=== PATIENT | female | born 1945 | race Caucasian/White ===

== ENCOUNTER → 2018-11-09 | Outpatient (CLI) | payer MEDICARE, SELFPAY | END | disposition home or self-care (01) | LOC: SL 20:36 | PROVIDERS: Family Provider Family Medicine; PCP Family Medicine; Referring Provider Family Medicine; Visit Provider Family Medicine | DX: G47.33 Obstructive sleep apnea (adult) (pediatric) (principal) | CPT/HCPCS: 95810 ==

== ENCOUNTER → 2018-11-18 | Outpatient (CLI) | payer MEDICARE, SELFPAY ==
[2018-10-27 12:57] VITALS: BMI 41.3
--- NOTE | 2018-11-18 06:45 | ECHOCS_ITS ---
Reason For Study: CHEST PAIN, SOB Procedure This was a 2D Doppler, Color Flow transthoracic echocardiogram. The study was technically difficult. The study was technically limited. Exam performed in department. Left Ventricle Normal size and thickness. The estimated ejection fraction is 65 %. Diastolic function indeterminate but probably normal. No regional wall motion abnormalities noted. Right Ventricle Normal RV size. Normal systolic function. Atria Normal left atrium. Normal right atrium. No doppler evidence for ASD. Mitral Valve There is no mitral valve stenosis. No mitral valve insufficiency. Tricuspid Valve No significant tricuspid stenosis. Trivial tricuspid valve insufficiency. Pulmonary artery systolic pressure is 35-40 mmHg. Aortic Valve probably trileaflet. There is no aortic stenosis. No aortic valve insufficiency. Pulmonic Valve There is no pulmonic valvular stenosis. No pulmonic valve insufficiency. Great Vessels Normal aortic root. Pericardium/Pleural No pericardial effusion. Medication Diluted definity 4ml given slow IV push to enhance endocardial definition. MMode/2D Measurements & Calculations LVIDd: 3.9 cm IVSd: 0.80 cm Ao root diam: 3.1 cm LVIDs: 2.5 cm LVPWd: 1.00 cm FS: 34.7 % LAV(MOD-bp): 20.9 ml LVAd ap4: 24.3 cm2 SV(MOD-sp4): 36.3 ml LAV(MOD-bp) Indexed: 9.9 ml/m2 EDV(MOD-sp4): 65.1 ml LAV(MOD-sp2): 27.4 ml EDV(sp4-el): 67.8 ml LAV(MOD-sp4): 15.0 ml LVAs ap4: 14.6 cm2 ESV(MOD-sp4): 28.8 ml ESV(sp4-el): 29.7 ml EF(MOD-sp4): 55.8 % EF(sp4-el): 56.1 % SV(sp4-el): 38.0 ml LA A4 area: 8.8 cm2 LA dimension(2D): 2.8 cm RA A4 area: 8.9 cm2 Time Measurements MV dec time: 0.35 sec Doppler Measurements & Calculations MV E max john: 86.5 cm/sec Lat Peak E' John: 7.8 cm/sec Med Peak E' John: 9.2 cm/sec MV A max john: 104.3 cm/sec E/E' lat: 11.2 E/E' med: 9.4 MV E/A: 0.83 Ao V2 max: 130.0 cm/sec LV V1 max: 105.8 cm/sec PA V2 max: 103.1 cm/sec Ao max P.8 mmHg LV V1 max P.5 mmHg TR max john: 283.3 cm/sec TR max P.1 mmHg Interpretation Summary Diluted definity 4ml given slow IV push to enhance endocardial definition. The estimated ejection fraction is 65 %. Diastolic function indeterminate but probably normal. Pulmonary artery systolic pressure is 35-40 mmHg. The study was technically difficult. Ordering Physician: Kathi Quinones Referring Physician: JALYN SMITH Performed By: Geetha Gaston RDCS
--- NOTE | 2018-11-18 13:22 | STRESSREP ---
Stress Test Report Date: 1945 Procedure: Pharmacologic stress nuclear imaging study Indications: Chest pain Consent: Per the patient Procedure: The patient underwent pharmacologic (Regadenoson) evaluation with a peak heart rate of 98 beats per minute (65 %predicted maximal heart rate) and a peak blood pressure of 116/68 mmHg. The baseline ECG demonstrated normal sinus rhythm, nonspecific ST-T changes. EKG during lexiscan infusion revealed no significant change from baseline. EKG post infusion revealed no significant change from baseline. [There were no cardiac dysrhythmias pretest, during pharmacologic infusion, or recovery]. [There was no complaint of chest discomfort during pharmacologic infusion or recovery]. The examination was discontinued secondary to completion of protocol. Impression: 1. Lexiscan stress test test is negative for Lexiscan infusion induced EKG changes of ischemia. 2. Lexiscan stress test test negative for Lexiscan infusion induced chest pain. 3. Results of the nuclear portion of the test is as below Myocardial perfusion imaging study: Technique: The patient was injected with 11.3 millicuries of technetium 99m Cardiolite and subsequently rest SPECT Cardiolite nuclear imaging was obtained in the horizontal long, vertical long, and short axis views. The patient underwent pharmacologic (Regadenoson) evaluation. Please see above for details. The patient was injected with 34.1 millicuries of technetium 99m Cardiolite and subsequently stress SPECT Cardiolite nuclear imaging was obtained in the horizontal long, vertical long, and short axis views. A gated Cardiolite study at peak stress was obtained. Interpretation: Rest and stress SPECT Cardiolite nuclear imaging status post realignment, normalization, and attenuation correction demonstrate uniform myocardial radioisotope uptake overall. Gated images reveal no significant regional wall motion abnormalities. The reported LVEF is less than 70 %. Impression: 1. There is no evidence of significant ischemia or infarction. 2. Estimated ejection fraction is greater than 70%. This note was generated with [employer] software. It may contain incorrect words, spelling, and punctuation that were not noted in checking the note before signing.
== END | disposition home or self-care (01) ==
PROVIDERS: Family Provider Family Medicine; PCP Family Medicine; Referring Provider Specialist; Visit Provider Specialist
DX: R07.89 Other chest pain (principal); R06.02 Shortness of breath
CPT/HCPCS: 78452; 93017; 93306; A9500; Q9957; A4216; C8929; J2785

== ENCOUNTER 2018-12-22 16:34 | Emergency (ER) | payer MEDICARE, SELFPAY ==
[2018-11-24 13:01] VITALS: BMI 40.5
[2018-12-22] VITALS (10 sets, daily range): BP systolic 105–158; BP diastolic 68–103; PULSE 76–105; RESP 15–27; TEMP 36.4–36.6; O2SAT 91–95; BMI 39.4
--- NOTE | 2018-12-22 16:54 | EKG12_ITS ---
Test Reason : SOB Blood Pressure : / mmHG Vent. Rate : 095 BPM Atrial Rate : 095 BPM P-R Int : 140 ms QRS Dur : 090 ms QT Int : 372 ms P-R-T Axes : 068 021 062 degrees QTc Int : 467 ms Normal sinus rhythm Normal ECG Confirmed by FABIANO MISTRY, TAIWO ([id number]), visual effects editor JIMMY REID ([id number]) on 12/27/2018 12:15:09 PM Referred By: MAXX Confirmed By:TAIWO MARIO MD
--- NOTE | 2018-12-22 16:54 | CT_ITS ---
STUDY: CTA CHEST REASON FOR EXAM: Female, 73 years old. Rule out PE. RADIATION DOSAGE (If Supplied By Facility): CTDIvol = ( 13.66 ) mGy, DLP = ( 1118.34 ) mGycm TECHNIQUE: The examination was performed with the intravenous administration of 100 IV Isovue 370. Post-processing of the angiographic images was performed, with multiplanar reformation and 3D reconstruction. Individualized dose optimization techniques were used for this CT. COMPARISON: None. FINDINGS: The heart and pericardium are normal. There is no mediastinal mass. Calcified mediastinal and right hilar adenopathy is consistent with old granulomatous disease. There is no evidence of pulmonary embolus. Pulmonary arteries are unremarkable. Ascending aorta measures 3.3 cm in transverse dimension. Aortic arch measures 3.1 cm. The distal thoracic aorta measures 4.8 x 3.9 cm. Proximal abdominal aorta measures 4 cm in AP dimension. Aortic dissection begins in the mid to distal thoracic aorta and extends into the abdominal aorta. Celiac artery, SMA, and renal arteries arise from the true lumen. There is no pleural effusion. There is no pulmonary consolidation. There is mild centrilobular emphysema in the upper lobes bilaterally. Multiple calcified granulomas are noted in the right lower lobe. Calcifications in the spleen are consistent with old granulomatous disease. There is no osseous abnormality. CT/CTA Chest W/WO Contrast IMPRESSION: 1. 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 2. Mild COPD. 3. Old healed granulomatous disease. Electronically Signed: Judy Becker MD at 18:55 EDT Tel , Service support ,
--- NOTE | 2018-12-22 16:55 | ED.VISSUMM ---
- ER Visit Summary Date of Service: 12/22/18 Chief Complaint: Shortness of breath History of Present Illness: The patient is a 73 F here for ongoing shortness of breath. Patient has a history of COPD and is on home oxygen. She reports worsening shortness of breath over several months, worse today. She had an outpatient blood test which was abnormal and she was referred to the emergency department to rule out PE. Patient has no history of PE or DVT. No leg swelling, immobilization, recent surgery, or recent travel. She does not take blood thinners. Denies hemoptysis. She does report a cough with sputum but denies fevers or other associated symptoms. Physical Examination: Afebrile and vital signs unremarkable. Patient alert and oriented. No acute distress. Sitting, breathing, talking comfortably. She is wearing nasal cannula oxygen. Lungs diminished. Heart regular. Calves soft and supple. Test Results: EKG, labs, CTA pending. Emergency Department Course and Treatment: Patient will be monitored while awaiting results. Lab work was all fairly unremarkable. Troponin was normal. CT was performed. Preliminary read was pending, but it was clear that there was a descending aorta dissection. Additional imaging was performed. I added on coags and type and screen. Patient was treated with labetalol. Repeat systolic pressure was 105. It appeared that the dissection was a type B. 4.8 cm maximum thoracic diameter. Extended to the iliac bifurcation. It appeared that the other branches communicated with the true lumen. Patient was neurovascularly intact. No other symptoms or findings. Patient was discussed with Dr. Diamond at [facility] and will be transferred for further care. Treatment Plan: As above Disposition: Transfer Impression: 1. Type B aortic dissection This note was generated with [employer] dictation software. It may contain incorrect words, spelling, and punctuation that were not noted in review of the chart prior to signing ED Disposition - Plan for ED Patient: Referrals: Roderick Ryder MD [Primary Care Provider] -
[2018-12-22 17:26] LABS: Absolute Lymphocyte Count 0.92 X10^3/uL (0.83-4.51); Absolute Neutrophil Count 5.2 X10^3/uL (2.0-7.7); Basophil# 0.05 X10^3/uL; Basophil% 0.7 % (0-1); Eosinophil# 0.14 X10^3/uL; Eosinophils% 1.9 % (0-5); Hematocrit 41.8 % (37-47); Hemoglobin 13.4 g/dL (12.0-15.0); Lymphocyte # 0.92 X10^3/ul (4.0); Lymphocyte % 12.8 % (19-41); Mean Corp Hgb Conc 32.1 g/dL (32-36); Mean Corpuscular Hgb 30.7 pg (27.0-32.0); Mean Corpuscular Volume 95.9 fL (81-99); Mean Platelet Vol. 9.5 fl (6.2-12.0); Monocyte# 0.89 X10^3/uL; Monocyte% 12.3 % (0-10); NRBC Flagged by Analyzer 0 % (0-5); Neutrophil # 5.18 X10^3/uL (2.7-7.7); Neutrophil % 71.9 % (47-70); Platelet Count 246 K/mm3 (150-450); RBC Distribution Width SD 46.6 fl (35.1-43.9); Red Blood Count 4.36 M/mm3 (4.2-5.4); White Blood Count 7.2 K/mm3 (4.4-11.0)
[2018-12-22 17:38] LABS: Anion Gap 1 (5-15); BUN 28 mg/dL (7-18); BUN/Creat Ratio 32.8 RATIO (10-20); Calcium,Total 9.2 mg/dL (8.5-10.1); Chloride 101 mmol/L (98-107); Creatinine, Serum 0.85 mg/dL (0.55-1.02); EST Glomerular Filtration Rate 70 mL/min (>60); Est Glom Filt Rate - Afr Amer 84 mL/min (>60); Estimated Creatinine Clearance 52.42 ml/min; Glucose 223 mg/dL (74-106); Potassium 3.5 mmol/L (3.5-5.1); Sodium Level 138 mmol/L (136-145)
--- NOTE | 2018-12-22 17:59 | CT_ITS ---
We are attempting to reach an attending provider to discuss findings. An addendum with communication details will be sent when the communication is complete. STUDY: CT ABDOMEN AND PELVIS WITH CONTRAST REASON FOR EXAM: Female, 73 years old. Dissection? RADIATION DOSAGE (If Supplied By Facility): CTDIvol = ( 13.66 ) mGy, DLP = ( 1118.34 ) mGycm TECHNIQUE: Transaxial images were obtained from the dome of the diaphragm to the symphysis pubis without oral contrast. 100 IV Isovue 370 was administered. Sagittal and coronal images were reconstructed. Individualized dose optimization techniques were used for this CT. COMPARISON: None. FINDINGS: There is diffuse fatty infiltration of the liver. No focal lesion. The gallbladder is unremarkable. Splenic calcifications consistent with old granulomatous disease. The spleen is otherwise unremarkable. There are several small pancreatic calcifications consistent with chronic pancreatitis, or possibly old granulomatous disease. The adrenal glands are normal. Multiple renal cysts measure up to 2.3 cm. The kidneys are otherwise unremarkable. No stones or hydronephrosis. The abdominal aorta measures 4.5 x 3.7 cm at the diaphragmatic hiatus, 3.4 x 3.2 cm at the level of the renal arteries, and 3.6 x 3.2 cm distally. Aortic dissection extends from the thoracic aorta to the aortic bifurcation, with probable short segment extension into the proximal left common iliac artery. There is no free fluid, free air, or organized collection. No bowel obstruction or inflammatory change. Normal appendix. Urinary bladder is unremarkable. Normal abdominal wall. Mild degenerative changes of the lumbar spine. CT/Abdomen/Pelvis WITH Contrast IMPRESSION: 1. A 4.5 cm AAA, with dissection extending from the hiatus to the aortic bifurcation. 2. Probable short segment dissection of the proximal left common iliac artery. 3. Hepatic steatosis. 4. Old granulomatous disease. 5. Renal cysts. Electronically Signed: Judy Becker MD at 19:31 EDT Tel , Service support ,
[2018-12-22 18:25] LABS: Prothrombin Time (Protime)PT. 12.9 SECONDS (11.7-14.9)
[2018-12-22 18:26] LABS: Partial Thromboplast Time 28.1 Seconds (24.1-36.2)
== END 2018-12-22 22:24 | disposition short-term general hospital (02) ==
PROVIDERS: Emergency Provider Emergency Medicine; Family Provider Family Medicine; PCP Family Medicine
DX: I71.01 Dissection of thoracic aorta (principal); J44.9 Chronic obstructive pulmonary disease, unspecified; Z99.81 Dependence on supplemental oxygen; E11.9 Type 2 diabetes mellitus without complications; I10 Essential (primary) hypertension; M79.7 Fibromyalgia; Z79.84 Long term (current) use of oral hypoglycemic drugs; Z79.899 Other long term (current) drug therapy; Z87.891 Personal history of nicotine dependence
CPT/HCPCS: 71275; 74177; 80048; 84484; 85025; 85379; 85610; 85730; 86850; 86900; 93005; 96374; 96376; 99285; Q9967; A4216

== ENCOUNTER → 2018-12-22 | Outpatient (CLI) | payer MEDICARE, SELFPAY ==
[2018-11-24 13:01] VITALS: BMI 40.5
[2018-12-22 15:37] LABS: D-Dimer Quantitative (DVT/PE) 1.15 FEU/ug/m (0.27-0.49)
== END | disposition home or self-care (01) ==
LOC: LABSPEC 14:56
PROVIDERS: Family Provider Family Medicine; PCP Family Medicine; Referring Provider Family Medicine; Visit Provider Family Medicine
DX: R06.02 Shortness of breath (principal)
CPT/HCPCS: 85379

== ENCOUNTER 2021-07-24 20:43 | Observation (INO) | payer MEDICARE, SELFPAY ==
[2021-07-24 20:44] VITALS: BP 136/66; PULSE 64; RESP 20; TEMP 36.6; O2SAT 97; BMI 40.7
[2021-07-24 22:07] LABS: Absolute Lymphocyte Count 0.92 X10^3/uL (0.83-4.51); Absolute Neutrophil Count 6.5 X10^3/uL (2.0-7.7); Basophil# 0.05 X10^3/uL; Basophil% 0.6 % (0-1); Eosinophil# 0.08 X10^3/uL; Eosinophils% 0.9 % (0-5); Hematocrit 38.6 % (37-47); Hemoglobin 12.1 g/dL (12.0-15.0); Lymphocyte # 0.92 X10^3/ul (0.83-4.51); Lymphocyte % 10.6 % (19-41); Mean Corp Hgb Conc 31.3 g/dL (32-36); Mean Corpuscular Hgb 30.9 pg (27.0-32.0); Mean Corpuscular Volume 98.7 fL (81-99); Mean Platelet Vol. 9.6 fl (6.2-12.0); Monocyte# 1.07 X10^3/uL; Monocyte% 12.3 % (0-10); NRBC Flagged by Analyzer 0 % (0-5); Neutrophil # 6.54 X10^3/uL (2.7-7.7); Neutrophil % 75.3 % (47-70); Platelet Count 183 K/mm3 (150-450); RBC Distribution Width CV 12.8 % (11.6-14.6); RBC Distribution Width SD 46.2 fl (35.1-43.9); Red Blood Count 3.91 M/mm3 (4.2-5.4); White Blood Count 8.7 K/mm3 (4.4-11.0)
--- NOTE | 2021-07-24 22:09 | EKG12_ITS ---
Test Reason : WEAKNESS Blood Pressure : / mmHG Vent. Rate : 066 BPM Atrial Rate : 066 BPM P-R Int : 108 ms QRS Dur : 084 ms QT Int : 410 ms P-R-T Axes : 022 055 050 degrees QTc Int : 429 ms Sinus rhythm with short ND Otherwise normal ECG Confirmed by LUTHER MISTRY, LAMIN ([id number]), tape editor ALEIDA HARRIS ([id number]) on 07/25/2021 10:42:27 A M Referred By: JOVAN Confirmed By:ALLEN SLOAN MD
--- NOTE | 2021-07-24 22:11 | RAD_ITS ---
INDICATION: weakness EXAMINATION/TECHNIQUE: X-RAY - XR Chest 1 View COMPARISON: None. FINDINGS: LIFE-SUPPORT AND LINES: 1. None HEART AND VESSELS: Cardiac silhouette is upper limit of normal. No congestive failure LUNGS AND PLEURAL SPACES: Lungs are clear. No focal infiltrate, consolidation or effusions. No evidence of pneumothorax. No pulmonary mass is noted. MEDIASTINUM AND HILAR REGIONS: No masses adenopathy noted. No areas of calcification. Visualized upper airway is normal in position. BONY ELEMENTS: No acute bony changes noted. RAD/Chest 1 View (Portable) IMPRESSION: 1. Cardiac silhouette is at the upper limit of normal. 2. No evidence of acute cardiopulmonary process. Electronically Signed: Joe Cuevas MD at 22:40 EST ,
--- NOTE | 2021-07-24 22:12 | US_ITS ---
STUDY: VENOUS DOPPLER ULTRASOUND - BILATERAL LOWER EXTREMITIES REASON FOR EXAM: Female, 75 years old. BILAT SWELLING - BAD KNEES FOR YEARS TECHNIQUE: Ultrasound evaluation of the deep vein system to include mann-scale imaging and compression was performed. Mann-scale imaging and Doppler sonographic evaluation, including duplex spectral analysis and qualitative color flow sonography, was performed. COMPARISON: None. FINDINGS: RIGHT LEG Common Femoral Vein: Normal compression, spontaneity and augmentation. Normal color Doppler. Common Femoral Vein/Greater Saphenous Junction: Normal compression, spontaneity and augmentation. Normal color Doppler. Deep Femoral Vein: Normal compression, spontaneity and augmentation. Normal color Doppler. Femoral Proximal: Normal compression, spontaneity and augmentation. Normal color Doppler. Femoral Middle: Normal compression, spontaneity and augmentation. Normal color Doppler. Femoral Distal: Normal compression, spontaneity and augmentation. Normal color Doppler. Popliteal Vein: Normal compression, spontaneity and augmentation. Normal color Doppler. Posterior Tibial Vein: Normal compression, spontaneity and augmentation. Normal color Doppler. Peroneal Vein: Normal compression, spontaneity and augmentation. Normal color Doppler. LEFT LEG Common Femoral Vein: Normal compression, spontaneity and augmentation. Normal color Doppler. Common Femoral Vein/Greater Saphenous Junction: Normal compression, spontaneity and augmentation. Normal color Doppler. Deep Femoral Vein: Normal compression, spontaneity and augmentation. Normal color Doppler. Femoral Proximal: Normal compression, spontaneity and augmentation. Normal color Doppler. Femoral Middle: Normal compression, spontaneity and augmentation. Normal color Doppler. Femoral Distal: Normal compression, spontaneity and augmentation. Normal color Doppler. Popliteal Vein: Normal compression, spontaneity and augmentation. Normal color Doppler. Posterior Tibial Vein: Normal compression, spontaneity and augmentation. Normal color Doppler. Peroneal Vein: Normal compression, spontaneity and augmentation. Normal color Doppler. Bilateral posterior fossa MICHEL cyst formations, slightly complex on the left. US/Venous Duplex Imag/Flip Extrem IMPRESSION: Normal venous Doppler ultrasound of the bilateral lower extremities. Electronically Signed: Tyler Marin DO at 23:35 EST ,
[2021-07-24 22:29] LABS: Anion Gap 3 (5-15); BUN 27 mg/dL (7-18); BUN/Creat Ratio 34.1 RATIO (10-20); Calcium,Total 8.8 mg/dL (8.5-10.1); Chloride 99 mmol/L (98-107); Creatinine, Serum 0.79 mg/dL (0.55-1.02); EST Glomerular Filtration Rate 76 mL/min (>60); Est Glom Filt Rate - Afr Amer 91 mL/min (>60); Estimated Creatinine Clearance 41.45 ml/min; Glucose 116 mg/dL (74-106); Potassium 3.8 mmol/L (3.5-5.1); Sodium Level 139 mmol/L (136-145)
--- NOTE | 2021-07-24 22:33 | EDS_ITS ---
HPI History of Present Illness Chief Complaint: Weakness Narrative Narrative: Patient is a 75-year-old female who lives at home alone. Reportedly today after she woke up from sleeping she could not get himself to stand as she felt generalized weakness. She states she typically uses a walker and was eventually able to stand up but felt like if she went to walk she would fall. Her daughter came over and attempted to help her care for herself throughout the day but the patient's generalized weakness persisted. Daughter states that this evening she try to get her into the bathtub and the patient was too weak to do this and almost fell and therefore EMS was called to bring her in for evaluation. Patient states that there has been no fevers chills cough or increased shortness of breath. She states that she always feels short of breath as she has COPD and wears oxygen and that he is also had chronic leg swelling and she has noted some pain behind the bilateral knees with no reported injury. However at this time as she is too weak to ambulate she does not appear to be able to care for self at home and therefore was brought in by daughter for evaluation [facility] Medical History (Updated 07/25/21 @ 00:[address] Lavelle Ornelas, ) COPD (chronic obstructive pulmonary disease) Degenerative disc disease, lumbar Depression Edema of both lower extremities Essential hypertension Fibromyalgia GERD (gastroesophageal reflux disease) Morbid obesity with BMI of 40.0-44.9, adult Muscle spasm MICHEL (obstructive sleep apnea) Osteoarthritis RLS (restless legs syndrome) Type 2 diabetes mellitus without complication Home Medications albuterol sulfate 90 mcg/actuation aerosol inhaler 2 puff INHALATION Q4H PRN g 10/14/18 [History Last Taken Unknown] baclofen 10 mg tablet 10 mg PO TID 10/14/18 [History Last Taken Unknown] hydrochlorothiazide 12.5 mg capsule 12.5 mg PO DAILY 10/14/18 [History Last Taken Unknown] meloxicam 7.5 mg tablet 7.5 mg PO DAILY 10/14/18 [History Last Taken Unknown] metformin 500 mg tablet 500 mg PO DAILY tab 10/14/18 [History Last Taken Unknown] ranitidine HCl 150 mg tablet 150 mg PO BID 10/14/18 [History Last Taken Unknown] ropinirole 0.5 mg tablet 1.5 mg PO QHS tab 10/14/18 [History Last Taken Unknown] Oxygen #1 ea 10/27/18 [History Last Taken Unknown] budesonide 1 dose INHALATION BID 12/22/18 [History Last Taken Unknown] ipratropium-albuterol 1 dose INHALATION 4X/DAY 12/22/18 [History Last Taken Unknown] Allergy/AdvReac Type Severity Reaction Status Date / Time lisinopril AdvReac Intermediate cough Verified 07/24/21 20:50 Family History Mother Cancer lymphoma Father COPD (chronic obstructive pulmonary disease) Cancer bone Son Heart disease ischemic heart disease Surgical History History of appendectomy History of hysterectomy History of tonsillectomy Social History (Updated 11/24/18 @ 14:[address] Serenity Quinones MD) Smoking Status: Former smoker how long ago did patient quit smokin.5 years ago alcohol intake: current alcohol intake frequency: holidays/special occasions only substance use type: does not use caffeine: Yes Type: coffee Number of servings: 1 ROS ROS ED Constitutional Constitutional ED: Denies chills or fever(s) ENT ENT ED: Denies sore throat Cardiovascular Cardiovascular: Denies chest pain Respiratory/Chest Respiratory/Chest: Reports dyspnea; Denies cough Gastrointestinal Gastrointestinal: Denies abdominal pain, diarrhea, nausea or vomiting Genitourinary Genitourinary ED: Denies dysuria Musculoskeletal Musculoskeletal: Reports myalgias; Denies back pain or neck pain Integumentary Denies rash Neurologic Neurologic: Reports weakness; Denies headache(s) Hematologic/Lymphatic Hematologic/Lymphatic: Denies easy bleeding or easy bruising EXAM Physical Exam Const Vital Signs: 07/24/21 20:44 07/24/21 23:35 Temperature 97.9 F Temperature Source Temporal Pulse Rate 64 64 Respiratory Rate 20 H 19 H Blood Pressure 136/66 H 133/61 H Blood Pressure Mean 89 85 Pulse Ox 97 94 Oxygen Delivery Method Nasal Cannula Nasal Cannula Oxygen Flow Rate (L/min) 4 4 Positive well nourished, well developed and obese General Appearance ED: well developed Nutritional Appearance: obese HEENT Reports dry mucous membranes Mouth ED: Yes dry mucous membranes Mouth: dry mucous membranes Eyes PERRL and EOMs intact bilaterally Neck supple Resp normal respiratory effort Resp Narrative: Breath sounds are diminished throughout with diffuse expiratory wheeze consistent with history of COPD but no signs of distress Cardio regular rate and regular rhythm Rate: other Other Details: Radial pulses are +2-4 bilaterally are equal and symmetric GI normal to inspection, nondistended, normoactive bowel sounds, non-tender, non- distended and no masses GI Narrative: No voluntary guarding or rigidity no pulsatile mass Auscultation: normoactive bowel sounds Palpation: soft Extremity Extremity Narrative: Pelvis is stable there is no shortening or external rotation of either lower extremity. Patient has +2-3 pitting edema to the bilateral lower extremities that is equal and symmetric. There are chronic stasis changes to the bilateral legs as well without secondary changes to suggest infection. Neuro oriented x3 and CN's II-XII intact bilaterally Neuro Narrative: No truncal ataxia or dysmetria NIH stroke scale score of 0 Sensorium / Orientation: alert Psych mental status grossly normal Skin Skin Narrative: Chronic stasis changes to the bilateral lower legs as documented above MDM MDM MDM Narrative Medical decision making narrative: Patient was the ER afebrile and satting in the mid 90s on her normal home oxygen. She reported generalized weakness and there was no focal deficit on exam. Patient cannot ambulate based on her strength in the ER as well as report by daughter and the fact that she lives at home alone means is that she is unsafe for return to home. A basic work-up was obtained to check for cause of the generalized weakness and it shows no signs of hyponatremia or acute kidney injury or signs of cardiac damage. X-ray does not show any signs of pneumonia. Her urine is weakly infected with +1 bacteria without contamination or white blood cells. Therefore the urine will be sent for culture and she will be started on Rocephin. However at this time the patient can still not ambulate and is still not safe for discharge therefore she will need to be placed in a penitentiary or rehab center. Patient states she is agreeable to this and therefore be admitted to the hospital at this time. Lab Data Attestation: I reviewed the patient's lab results. Labs: Laboratory Results - last 24 hr 07/24/21 07/24/21 07/24/21 22:00 22:00 22:00 WBC 8.7 RBC 3.91 L Hgb 12.1 Hct 38.6 MCV 98.7 MCH 30.9 MCHC 31.3 L RDW Std Deviation 46.2 H RDW Coeff of Stephenie 12.8 Plt Count 183 MPV 9.6 Immature Gran % (Auto) 0.300 Neut % (Auto) 75.3 H Lymph % (Auto) 10.6 L [place] % (Auto) 12.3 H Eos % (Auto) 0.9 Baso % (Auto) 0.6 Absolute Neuts (auto) 6.5 Absolute Lymphs (auto) 0.92 Nucleated RBC % 0 Sodium 139 Potassium 3.8 Chloride 99 Carbon Dioxide 37.0 H Anion Gap 3 L BUN 27 H Creatinine 0.79 Estim Creat Clear Calc 41.45 Est GFR (MDRD) Af Amer 91 Est GFR (MDRD) Non-Af 76 BUN/Creatinine Ratio 34.1 H Glucose 116 H Calcium 8.8 Magnesium Troponin I High Sens B-Natriuretic Peptide 82.2 Urine Color Urine Clarity Urine pH Ur Specific [place] Urine Protein Urine Glucose (UA) Urine Ketones Urine Occult Blood Urine Nitrite Urine Bilirubin Urine Urobilinogen Ur Leukocyte Esterase Urine RBC Urine WBC Ur Squamous Epith Cells Urine Bacteria Hyaline Casts Urine Mucus 07/24/21 07/24/21 22:00 23:35 WBC RBC Hgb Hct MCV MCH MCHC RDW Std Deviation RDW Coeff of Stephenie Plt Count MPV Immature Gran % (Auto) Neut % (Auto) Lymph % (Auto) [place] % (Auto) Eos % (Auto) Baso % (Auto) Absolute Neuts (auto) Absolute Lymphs (auto) Nucleated RBC % Sodium Potassium Chloride Carbon Dioxide Anion Gap BUN Creatinine Estim Creat Clear Calc Est GFR (MDRD) Af Amer Est GFR (MDRD) Non-Af BUN/Creatinine Ratio Glucose Calcium Magnesium 1.7 Troponin I High Sens 17 B-Natriuretic Peptide Urine Color Yellow Urine Clarity Clear Urine pH 6.5 Ur Specific [place] 1.010 Urine Protein 30 H Urine Glucose (UA) Normal Urine Ketones Negative Urine Occult Blood 10 H Urine Nitrite Negative Urine Bilirubin Negative Urine Urobilinogen Normal Ur Leukocyte Esterase Negative Urine RBC 0-5 SEEN Urine WBC 0 SEEN Ur Squamous Epith Cells 0-5 SEEN Urine Bacteria 1+ Hyaline Casts 0-5 SEEN Urine Mucus 0 SEEN Radiography Diagnostic Testing: Clinical Impression(s) from Imaging Studies Chest X-Ray 07/24/21 22:11 IMPRESSION: 1. Cardiac silhouette is at the upper limit of normal. 2. No evidence of acute cardiopulmonary process. Electronically Signed: Joe Cuevas MD at 22:40 EST , Venous Duplex 07/24/21 22:12 IMPRESSION: Normal venous Doppler ultrasound of the bilateral lower extremities. Electronically Signed: Tyler Marin at 23:35 EST , Discharge Plan Triage Chief Complaint: Weakness ED Provider: Lavelle Ornelas Dx/Rx/DC Orders Clinical Impression: Generalized muscle weakness, Urinary tract infection Prescriptions: No Action (DME) Oxygen 3 liters NC Qty: 1 RF: 0 ranitidine HCl [Acid Preventive Maintenance Engineer (ranitidine)] 150 mg tablet 150 mg PO BID RF: 0 meloxicam 7.5 mg tablet 7.5 mg PO DAILY RF: 0 metformin 500 mg tablet 500 mg PO DAILY RF: 0 hydrochlorothiazide 12.5 mg capsule 12.5 mg PO DAILY RF: 0 baclofen 10 mg tablet 10 mg PO TID RF: 0 albuterol sulfate 90 mcg/actuation HFA aerosol inhaler 2 puff INHALATION Q4H PRN (Reason: Sob &/Or Wheezing) RF: 0 ropinirole 0.5 mg tablet 1.5 mg PO QHS RF: 0 ipratropium-albuterol 0.5-3MG/3 solution for nebulization 1 dose inhalation 4X/DAY RF: 0 budesonide 0.5 MG/2ML suspension for nebulization 1 dose inhalation BID RF: 0 Primary Care Provider: Roderick Ryder Referrals: Roderick Ryder MD [Primary Care Provider] - Disposition Disposition: [facility]
[2021-07-24 22:44] LABS: Magnesium 1.7 mg/dL (1.6-2.6); Troponin-I HS 17 pg/mL (3.0-54.0)
[2021-07-24 22:50] LABS: BNP,B-Type NATRIURETIC PEPTIDE 82.2 pg/mL (0-100)
[2021-07-24 23:35] VITALS: BP 133/61; PULSE 64; RESP 19; O2SAT 94
[2021-07-24 23:41] LABS: Mucous, Urine 0 SEEN /hpf (<or=2+); White Blood Cells 0 SEEN /hpf (0-5)
[2021-07-24 23:46] LABS: Color, Urine Yellow (Yellow); Glucose, Dipstick Normal (Normal); Ketone-Dipstick Negative (Negative); Leukocyte Esterase-Dipstick Negative /ul (Negative); Nitrite-Dipstick Negative (Negative); Occult Blood-Urine 10 /ul (Negative); Protein-Dipstick 30 mg/dl (Negative); Urine Bilirubin Dipstick Negative (Negative); Urine Clarity Clear (Clear); Urine Urobilinogen Normal (Normal); Urine pH 6.5 (5.0 - 8.0)
[2021-07-24] MEDS: Orphenadrine 60 MG/2 ML Ampul IV (23:46)
[2021-07-25] VITALS (14 sets, daily range): BP systolic 99–145; BP diastolic 60–96; PULSE 66–91; RESP 15–20; TEMP 36.6–36.9; O2SAT 92–100; BMI 39.8
[2021-07-25 00:03] LABS: Bacteria 1+ /hpf (None Seen); Hyaline Cast 0-5 SEEN /lpf (0-5); Red Blood Cells-Urine 0-5 SEEN /hpf (0-5); Squamous Epithelial Cells - UA 0-5 SEEN /hpf (5-10)
[2021-07-25] MEDS: LORazepam 2 MG/ML Syringe 0.5 MG IV (00:04)
--- NOTE | 2021-07-25 00:23 | RAD_ITS ---
STUDY: X-RAY - RIGHT KNEE REASON FOR EXAM: Female, 75 years old. pain TECHNIQUE: 3 view(s) of the knee. COMPARISON: None. FINDINGS: Normal visualized distal femur. Normal visualized proximal tibia and fibula. Normal proximal tibiofibular articulation. There is mild degenerative arthrosis of the medial femorotibial compartment. There is severe degenerative arthrosis of the lateral femorotibial compartment with severe joint space narrowing. There is severe degenerative arthrosis of the patellofemoral articulation. There is a small joint effusion. The soft tissue structures are unremarkable. RAD/Knee 3 Views IMPRESSION: Degenerative arthrosis. Electronically Signed: Malcom Rubio MD at 1:40 EST ,
--- NOTE | 2021-07-25 00:35 | PCM.HP.STD ---
[facility] - General General Date of Admission: 07/25/21 Date of Service: 07/25/21 Chief Complaint: Generalised weakness, right knee pain, inability to walk/bear weight - 1 day HPI Narrative ENZO VAZQUEZ, is a 75 F who presents with the above ongoing for 1 day. She has multiple comorbidities significant for chronic respiratory failure secondary to COPD, on 4 L home oxygen, morbid obesity, pulmonary hypertension, MICHEL, restless leg syndrome. She lives alone and woke up this morning with inability to move. Her daughter helped the for the most part of the day to walk with her walker. She was helped into the shower and was unable to move because of severe right knee pain and spasms. Patient denied any falls, recent illness, fever or chills. Her daughter called 911 because she is unable to take care of her mom who lives alone but both herself and her sister check in on her frequently. Vitals in the ED were stable with blood pressure 133/61, heart rate 64, SPO2 94% on 4 L of oxygen. Admitting blood work including CBCD, CMP were unremarkable. Mag is 1.7. Admitting chest x-ray was negative for any acute cardiopulmonary process. Bilateral duplex ultrasound was negative for acute DVT. X-ray of the knees showed severe osteoarthritis. [facility] Medical History COPD (chronic obstructive pulmonary disease) Degenerative disc disease, lumbar Depression Edema of both lower extremities Essential hypertension Fibromyalgia GERD (gastroesophageal reflux disease) Morbid obesity with BMI of 40.0-44.9, adult Muscle spasm MICHEL (obstructive sleep apnea) Osteoarthritis RLS (restless legs syndrome) Type 2 diabetes mellitus without complication Home Medications albuterol sulfate 90 mcg/actuation aerosol inhaler 2 puff INHALATION Q4H PRN g 10/14/18 [History Last Taken Unknown] baclofen 10 mg tablet 10 mg PO TID 10/14/18 [History Last Taken Unknown] hydrochlorothiazide 12.5 mg capsule 12.5 mg PO DAILY 10/14/18 [History Last Taken Unknown] meloxicam 7.5 mg tablet 7.5 mg PO DAILY 10/14/18 [History Last Taken Unknown] metformin 500 mg tablet 500 mg PO DAILY tab 10/14/18 [History Last Taken Unknown] ranitidine HCl 150 mg tablet 150 mg PO BID 10/14/18 [History Last Taken Unknown] ropinirole 0.5 mg tablet 1.5 mg PO QHS tab 10/14/18 [History Last Taken Unknown] Oxygen #1 ea 10/27/18 [History Last Taken Unknown] budesonide 1 dose INHALATION BID 12/22/18 [History Last Taken Unknown] ipratropium-albuterol 1 dose INHALATION 4X/DAY 12/22/18 [History Last Taken Unknown] metoprolol tartrate 50 mg PO BID 07/25/21 [History Last Taken Unknown] oxybutynin chloride 5 mg PO DAILY 07/25/21 [History Last Taken Unknown] sertraline 50 mg PO DAILY 07/25/21 [History Last Taken Unknown] Allergy/AdvReac Type Severity Reaction Status Date / Time lisinopril AdvReac Intermediate cough Verified 07/24/21 20:50 Family History Mother Cancer lymphoma Father COPD (chronic obstructive pulmonary disease) Cancer bone Son Heart disease ischemic heart disease Surgical History History of appendectomy History of hysterectomy History of tonsillectomy Social History Smoking Status: Former smoker how long ago did patient quit smokin.5 years ago alcohol intake: current alcohol intake frequency: holidays/special occasions only substance use type: does not use caffeine: Yes Type: coffee Number of servings: 1 ROS ROS Narrative Constitutional: Reports: Generalized weakness, Fatigue. Denies: Anorexia, Chills, Fever, Night Sweats, Weight Change Eyes: Denies: Blurred vision, Cataracts, Conjunctivae Inflammation, Pain, Redness, Vision Change HEENT: Denies: Difficulty Hearing, Difficulty Swallowing, Head Aches, Hearing Changes, Sinus Congestion, Sinus Drainage Cardiovascular: Denies: Chest Pain, Orthopnea, Palpitations Respiratory: Denies: Cough, Shortness of breath at rest, Sputum production Gastrointestinal: Denies: Abdominal Pain, Nausea, Vomiting Genitourinary: Denies: Dysuria Musculoskeletal: See HPI Skin: Denies: Rash, Wounds Neurological: Denies: Numbness, Tingling, Focal weakness Vital Signs Vital Signs Vital Signs: 07/24/21 20:44 07/24/21 23:35 Temperature 97.9 F Temperature Source Temporal Pulse Rate 64 64 Respiratory Rate 20 H 19 H Blood Pressure 136/66 H 133/61 H Blood Pressure Mean 89 85 Pulse Ox 97 94 Oxygen Delivery Method Nasal Cannula Nasal Cannula Oxygen Flow Rate (L/min) 4 4 Weight Weight: 104.326 kg Body Mass Index (BMI) 40.7 Physical Exam Narrative Physical exam: General: Alert, Oriented x3, Cooperative, in severe pain, obese, on 4 L of oxygen HEENT: Atraumatic Oral: Moist Mucosa Neck: Supple Lungs: Diminished to auscultation Cardiovascular: HS I+II, regular, no murmurs Abdomen: Bowel Sounds Present, Soft, Non Tender Extremities: Bilateral leg edema +2-3 with chronic venous stasis skin changes Results Lab / Micro Data Result Diagrams: 07/24/21 22:00 07/24/21 22:00 Labs: Laboratory Results - last 24 hr 07/24/21 22:00: WBC 8.7, RBC 3.91 L, Hgb 12.1, Hct 38.6, MCV 98.7, MCH 30.9, MCHC 31.3 L, RDW Std Deviation 46.2 H, RDW Coeff of Setphenie 12.8, Plt Count 183, MPV 9.6, Immature Gran % (Auto) 0.300, Neut % (Auto) 75.3 H, Lymph % (Auto) 10.6 L, [place] % (Auto) 12.3 H, Eos % (Auto) 0.9, Baso % (Auto) 0.6, Absolute Neuts (auto) 6.5, Absolute Lymphs (auto) 0.92, Nucleated RBC % 0 07/24/21 22:00: Sodium 139, Potassium 3.8, Chloride 99, Carbon Dioxide 37.0 H, Anion Gap 3 L, BUN 27 H, Creatinine 0.79, Estim Creat Clear Calc 41.45, Est GFR (MDRD) Af Amer 91, Est GFR (MDRD) Non-Af 76, BUN/Creatinine Ratio 34.1 H, Glucose 116 H, Calcium 8.8 07/24/21 22:00: B-Natriuretic Peptide 82.2 07/24/21 22:00: Magnesium 1.7, Troponin I High Sens 17 07/24/21 23:35: Urine Color Yellow, Urine Clarity Clear, Urine pH 6.5, Ur Specific [place] 1.010, Urine Protein 30 H, Urine Glucose (UA) Normal, Urine Ketones Negative, Urine Occult Blood 10 H, Urine Nitrite Negative, Urine Bilirubin Negative, Urine Urobilinogen Normal, Ur Leukocyte Esterase Negative, Urine RBC 0-5 SEEN, Urine WBC 0 SEEN, Ur Squamous Epith Cells 0-5 SEEN, Urine Bacteria 1+, Hyaline Casts 0-5 SEEN, Urine Mucus 0 SEEN Radiology Impression Chest X-Ray 07/24/21 22:11 IMPRESSION: 1. Cardiac silhouette is at the upper limit of normal. 2. No evidence of acute cardiopulmonary process. Electronically Signed: Joe Cuevas MD at 22:40 EST , Venous Duplex 07/24/21 22:12 IMPRESSION: Normal venous Doppler ultrasound of the bilateral lower extremities. Electronically Signed: Tyler Marin DO at 23:35 EST , Assessment & Plan Assessment/Plan (1) Debility: (2) Right knee pain: QUALIFIERS: Chronicity: acute Qualified Code(s): M25.561 - Pain in right knee PLAN: 1. Debility secondary to acute on chronic right knee pain/severe osteoarthritis Patient lives alone and is unable to bear weight X-ray of the right knee, pain control with scheduled Tylenol, prn oxycodone, orthopedics consult for possible knee injection PT/OT to evaluate and treat Patient and family are okay for patient to call for rehab Hold meloxicam -contributing to fluid retention Check phosphorus level 2. Acute exacerbation of heart failure with preserved EF, EF of 65% 2D echo done in 2019 showed RVSP of 35-40, diastolic function indeterminate Patient is on hydrochlorothiazide at home; hold Start patient on Lasix 40 mg IV twice daily, I & Os, CHF protocol 3. Type 2 DM, on Metformin, will hold Metformin Start on insulin sliding scale with blood glucose checks 4. Hypomagnesemia, magnesium is 1.7, replaced, recheck in a.m. 5. Chronic respiratory failure secondary to COPD, not in acute exacerbation; patient is on her home 4 L of oxygen Continue breathing treatments as needed, encourage use of incentive spirometer 6. Morbid obesity, BMI 40.7, lifestyle modification recommended 7. DVT prophylaxis?heparin SC 8. CODE STATUS?DNR CCA, no intubation I discussed and explained in details the various types of CODE STATUS-full code, DNR CCA, DNR CC. Patient chose to be a DNR CCA, no intubation. She does not want cardiopulmonary resuscitation in the event of cardiopulmonary arrest. Time spent discussing CODE STATUS 16 minutes Charges/Coding Visit Charges Inpatient E&M: 34849 Init Hosp L3 Procedures Hospitalists Procedures: 81043 Advncd Care Plan 30 Min
[2021-07-25] MEDS: Ondansetron 4 MG/2 ML Vial IV (00:36)
[2021-07-25] MEDS: fentaNYL 100 MCG/2 ML Ampul 50 MCG IV (00:42)
[2021-07-25] MEDS: Ceftriaxone 1 GM/50 ML BAG IV (00:43)
[2021-07-25] MEDS: Heparin Injection (Vial) 5,000 UNIT/ML VIAL 5000 UNIT SC ×2 (05:27→12:45)
[2021-07-25] MEDS: Acetaminophen 325 MG Tablet 650 MG PO ×2 (05:27→12:45)
[2021-07-25 05:31] LABS: Absolute Lymphocyte Count 0.88 X10^3/uL (0.83-4.51); Absolute Neutrophil Count 6.1 X10^3/uL (2.0-7.7); Basophil# 0.03 X10^3/uL; Basophil% 0.4 % (0-1); Eosinophil# 0.06 X10^3/uL; Eosinophils% 0.7 % (0-5); Hematocrit 37.3 % (37-47); Hemoglobin 11.6 g/dL (12.0-15.0); Lymphocyte # 0.88 X10^3/ul (0.83-4.51); Lymphocyte % 10.5 % (19-41); Mean Corp Hgb Conc 31.1 g/dL (32-36); Mean Corpuscular Hgb 31.2 pg (27.0-32.0); Mean Corpuscular Volume 100.3 fL (81-99); Mean Platelet Vol. 9.9 fl (6.2-12.0); Monocyte# 1.22 X10^3/uL; Monocyte% 14.6 % (0-10); NRBC Flagged by Analyzer 0 % (0-5); Neutrophil # 6.14 X10^3/uL (2.7-7.7); Neutrophil % 73.3 % (47-70); Platelet Count 193 K/mm3 (150-450); RBC Distribution Width CV 12.8 % (11.6-14.6); Red Blood Count 3.72 M/mm3 (4.2-5.4); White Blood Count 8.4 K/mm3 (4.4-11.0)
[2021-07-25 06:00] LABS: AST(SGOT) 22 U/L (15-37); Alanine Aminotransfer ALT/SGPT 22 U/L (13-56); Albumin, Serum 3.5 g/dL (3.2-5.0); Alkaline Phosphatase 84 U/L (45-117); Anion Gap 1 (5-15); BUN 20 mg/dL (7-18); BUN/Creat Ratio 31.3 RATIO (10-20); Calcium,Total 8.7 mg/dL (8.5-10.1); Chloride 98 mmol/L (98-107); Creatinine, Serum 0.64 mg/dL (0.55-1.02); EST Glomerular Filtration Rate 97 mL/min (>60); Est Glom Filt Rate - Afr Amer 117 mL/min (>60); Estimated Creatinine Clearance 41.45 ml/min; Globulin 3.5 g/dL (2.2-4.2); Glucose 126 mg/dL (74-106); Magnesium 2.2 mg/dL (1.6-2.6); Phosphorus 3.2 mg/dL (2.5-4.9); Potassium 3.8 mmol/L (3.5-5.1); Sodium Level 138 mmol/L (136-145)
[2021-07-25 06:46] LABS: Bedside Glucose 131 mg/dL (70-110)
[2021-07-25 06:46] LABS: Bedside Glucose 124 mg/dL (70-110)
[2021-07-25] MEDS: 0.9% Saline Lock 10 ML Syringe IV ×2 (08:08→18:01)
[2021-07-25] MEDS: Furosemide 40 MG/4 ML Vial IV ×2 (08:08→18:01)
[2021-07-25] MEDS: Sertraline 50 MG Tablet PO (10:19)
[2021-07-25] MEDS: Famotidine 20 MG Tablet PO (10:19)
[2021-07-25] MEDS: hydroCHLOROthiazide 12.5mg 12.5 MG PO (10:20)
[2021-07-25] MEDS: Metoprolol Tartrate 50 MG Tablet PO (10:20)
[2021-07-25] MEDS: Meloxicam 7.5 MG Tablet PO (10:20)
[2021-07-25] MEDS: Oxybutynin 5 MG Tablet PO (10:22)
--- NOTE | 2021-07-25 10:28 | CASEMGMT ---
Reviewed chart and patient will need placement. SW went to patient's room to meet patient. Patient was lying in bed and almost had her food tray pulled over on top of her. SW quickly assisted patient and removed her food tray, moved the tray table beside her bed, and wiped it off. SW then asked patient about which facility. Patient would like to go to [facility]. Patient was sleepy so SW asked if SW could call her daughter to discuss this. Patient gave permission. SW called patient's daughter and she said she is on her way to [facility]. SW then spoke with patient's daughter when she arrived at [facility]. SW provided a list of SNF providers including quality and resource use data and consistent with the patient?s preferred geographic region, medical needs, and insurance network. Patient's daughter would like [facility]. SW let her now they should have a bed for patient. SW let her know insurance coverage generally speaking as SW did not call and find out exact benefits. SW let her know patient will be able to have more visitors and she will be able to wear regular clothes while in TCU. JARVIS also told her SW will call when patient is being transferred. [facility]
[2021-07-25] MEDS: Ipratropium/Albuterol Sulfate 3 ML AMPUL.NEB INHALATION ×3 (10:33→18:36)
[2021-07-25] MEDS: Budesonide Respules 0.5 MG/2 ML AMPUL.NEB. INHALATION ×2 (10:34→18:49)
[2021-07-25 12:51] LABS: Bedside Glucose 112 mg/dL (70-110)
--- NOTE | 2021-07-25 13:11 | PCM.DC.SUM ---
Providers Date of Admission: 07/25/21 Date of Discharge: 07/25/21 Primary Care Physician: Dr. Roderick Ryder MD Consultations 07/25/21 01:07 Consult: Orthopedics Routine Consulting Provider: Burke Velez Reason for Consult: Severe right knee pain EMERGENT Consult: No MD Notified: Yes Date Notified: 07/25/21 Time Notified: 07:30 Method of Notification: Text Reason For Visit: debility Diagnosis Discharge Diagnosis (1) Debility: Status: Acute Code(s): R53.81 - Other malaise (2) Right knee pain: Status: Acute Code(s): M25.561 - Pain in right knee Qualifiers: Chronicity: acute Qualified Code(s): M25.561 - Pain in right knee Medications at Discharge Home Medications albuterol sulfate 90 mcg/actuation aerosol inhaler 2 puff INHALATION Q4H PRN g 10/14/18 baclofen 10 mg tablet 10 mg PO TID 10/14/18 meloxicam 7.5 mg tablet 7.5 mg PO DAILY 10/14/18 metformin 500 mg tablet 500 mg PO DAILY tab 10/14/18 ropinirole 0.5 mg tablet 1.5 mg PO QHS tab 10/14/18 Oxygen #1 ea 10/27/18 budesonide 1 dose INHALATION BID 12/22/18 ipratropium-albuterol 1 dose INHALATION 4X/DAY 12/22/18 hydrochlorothiazide 25 mg PO DAILY 07/25/21 metoprolol tartrate 50 mg PO DAILY 07/25/21 oxybutynin chloride 5 mg PO DAILY 07/25/21 sertraline 50 mg PO DAILY 07/25/21 Hospital Course Operations None Procedures None Summary of Care Provided Minutes Spent on Discharge: 39 Hospital Course: Mrs. Correia is a 75-year-old white female who presented to the emergency department late last evening with generalized weakness and decreased mobility. The patient indicated she typically uses a walker at baseline and is on 4 L of oxygen. She states she went to stand up but felt as if she would fall and her leg would give out on her. She has fairly severe osteoarthritis of the knees and feels this is contributing. The daughter presented with her and reported that the evening of admission she tried to get her into the bathtub and the patient was too weak to do this and and was felt. The patient complained of no fevers or chills, cough, shortness of breath other than her baseline for which she wears oxygen at 4 L secondary to COPD. She reports that she has chronic leg swelling and does report she has pain most specifically behind both knees. She has no known injury. The daughter was concerned because she is unable to care for herself at home and thought that placement may be appropriate and was agreeable to this in the emergency department. Her vital signs were stable and her laboratory data was overall unremarkable. There is initially concern of a urinary tract infection however UA is not suggestive of infection as it is leuk esterase and nitrite negative with no white blood cells and will only 1+ bacteria. The patient is asymptomatic with regards to urinary symptoms as well. Urine culture was sent by the emergency department on admission but she was not placed on any antibiotics at the time of admission. During her hospitalization she was seen by occupational and physical therapy and deemed appropriate for further therapy needs. X-rays of her knees were performed given her knee pain and these revealed mild degenerative arthrosis in the medial femorotibial compartment and severe degenerative arthrosis in the lateral femorotibial compartment with severe joint space narrowing as well as severe degenerative arthrosis of the patellofemoral articulation. She had a small joint effusion. On physical exam there was no warmth or erythema at the joint. She was able to be discharged to TCU for continued therapy on 07/25/2021. We do recommend she follow-up with orthopedic surgery for her knee osteoarthritis. I suspect she is overall a poor surgical candidate however nonsurgical interventions including injections may be helpful. She is to follow-up with her primary care physician in 2 weeks after discharge from TCU. Discharge diagnoses: Debility Knee pain secondary to osteoarthritis Bacteriuria Acute exacerbation of diastolic heart failure-resolved COPD with oxygen dependence of 4 L DM-2 Hypomagnesemia-resolved Chronic hypoxic respiratory failure MICHEL-noncompliance at baseline Hypertension Restless leg syndrome Urinary incontinence Morbid obesity Physical Exam Const alert, oriented x3 and no apparent distress Constitutional Narrative: Older white female lying in bed, slightly sleepy but appropriate and alert and oriented x3, empty breakfast tray in front of patient General Appearance: cooperative, comfortable, well kempt and well developed Orientation / Consciousness: awake Exam Limitations: no limitations Nutritional Appearance: obese HEENT normocephalic, head/scalp atraumatic, moist oral mucous membranes and oropharynx normal HEENT Narrative: Mallampati three, dentures in place, no thrush Eyes PERRL, EOMs intact bilaterally and conjunctivae normal Eyes Narrative: No scleral icterus Neck no lymphadenopathy, supple and no JVD Neck Narrative: Neck is short and thick, trachea is midline, no signs of thyroid enlargement on exam Resp normal respiratory effort, no retractions, no use of accessory muscles and clear to auscultation bilaterally Resp Narrative: Diminished but clear Auscultation: Negative for crackles, rales, rhonchi or wheezes Cardio regular rate, regular rhythm, S1 normal heart sound, S2 normal heart sound, no murmurs, no rub, no gallops, no clicks and no JVD GI normal to inspection, nondistended, normoactive bowel sounds, soft to palpation, non-tender and non-distended Extremity Extremity Narrative: Arthritic changes in bilateral knees, no clubbing or cyanosis, trace bilateral lower extremity edema which appears to be chronic Skin no rashes or lesions noted, no wounds, skin turgor normal and no jaundice Neuro oriented x3, CN's II-XII intact bilaterally, moves all extremities and no focal motor deficits Neuro Narrative: Patient is slightly groggy but alert and oriented follows commands without any issue and is able to participate in her history with me Sensorium / Orientation: awake and alert Speech: speech normal Psych affect normal Weight / BMI Weight Weight: 102.058 kg Body Mass Index (BMI) 39.8 ABG / Lab / Microbiology Data Result Diagrams: 07/25/21 04:36 07/25/21 04:36 Laboratory: Laboratory Results - last 24 hr 07/24/21 22:00: WBC 8.7, RBC 3.91 L, Hgb 12.1, Hct 38.6, MCV 98.7, MCH 30.9, MCHC 31.3 L, RDW Std Deviation 46.2 H, RDW Coeff of Stephenie 12.8, Plt Count 183, MPV 9.6, Immature Gran % (Auto) 0.300, Neut % (Auto) 75.3 H, Lymph % (Auto) 10.6 L, Pettis % (Auto) 12.3 H, Eos % (Auto) 0.9, Baso % (Auto) 0.6, Absolute Neuts (auto) 6.5, Absolute Lymphs (auto) 0.92, Nucleated RBC % 0 02/16/22 22:00: Sodium 139, Potassium 3.8, Chloride 99, Carbon Dioxide 37.0 H, Anion Gap 3 L, BUN 27 H, Creatinine 0.79, Estim Creat Clear Calc 41.45, Est GFR (MDRD) Af Amer 91, Est GFR (MDRD) Non-Af 76, BUN/Creatinine Ratio 34.1 H, Glucose 116 H, Calcium 8.8 07/24/21 22:00: B-Natriuretic Peptide 82.2 07/24/21 22:00: Magnesium 1.7, Troponin I High Sens 17 07/24/21 23:35: Urine Color Yellow, Urine Clarity Clear, Urine pH 6.5, Ur Specific Dexter 1.010, Urine Protein 30 H, Urine Glucose (UA) Normal, Urine Ketones Negative, Urine Occult Blood 10 H, Urine Nitrite Negative, Urine Bilirubin Negative, Urine Urobilinogen Normal, Ur Leukocyte Esterase Negative, Urine RBC 0-5 SEEN, Urine WBC 0 SEEN, Ur Squamous Epith Cells 0-5 SEEN, Urine Bacteria 1+, Hyaline Casts 0-5 SEEN, Urine Mucus 0 SEEN 07/25/21 02:19: POC Glucose 124 H 07/25/21 04:36: WBC 8.4, RBC 3.72 L, Hgb 11.6 L, Hct 37.3, MCV 100.3 H, MCH 31.2, MCHC 31.1 L, RDW Std Deviation 47.0 H, RDW Coeff of Stephenie 12.8, Plt Count 193, MPV 9.9, Immature Gran % (Auto) 0.500, Neut % (Auto) 73.3 H, Lymph % (Auto) 10.5 L, Pettis % (Auto) 14.6 H, Eos % (Auto) 0.7, Baso % (Auto) 0.4, Absolute Neuts (auto) 6.1, Absolute Lymphs (auto) 0.88, Nucleated RBC % 0 07/25/21 04:36: Sodium 138, Potassium 3.8, Chloride 98, Carbon Dioxide 39.0 H, Anion Gap 1 L, BUN 20 H, Creatinine 0.64, Estim Creat Clear Calc 41.45, Est GFR (MDRD) Af Amer 117, Est GFR (MDRD) Non-Af 97, BUN/Creatinine Ratio 31.3 H, Glucose 126 H, Calcium 8.7, Phosphorus 3.2, Magnesium 2.2, Total Bilirubin 0.50, AST 22, ALT 22, Alkaline Phosphatase 84, Total Protein 7.0, Albumin 3.5, Globulin 3.5, Albumin/Globulin Ratio 1.0 07/25/21 05:34: POC Glucose 131 H 07/25/21 12:38: POC Glucose 112 H Radiography Diagnostic Testing: Radiology Impression Chest X-Ray 07/24/21 22:11 IMPRESSION: 1. Cardiac silhouette is at the upper limit of normal. 2. No evidence of acute cardiopulmonary process. Electronically Signed: Joe Cuevas MD at 22:40 EST , Venous Duplex 07/24/21 22:12 IMPRESSION: Normal venous Doppler ultrasound of the bilateral lower extremities. Electronically Signed: Tyler Marin DO at 23:35 EST , Knee X-Ray 07/25/21 00:23 IMPRESSION: Degenerative arthrosis. Electronically Signed: Malcom Rubio MD at 1:40 EST , D/C Instructions Discharge Diet: Low fat / Low cholesterol and 1800 Calorie Control Diet Discharge Activity: Return to Normal Activity Meaningful Use Info Meaningful Use Diagnoses (Choose all that apply): None applicable Discharge Plan Admission Admit Date/Time: 07/25/21 00:13 Primary Reason for Your Visit: Debility Attending Provider: Natalie Fierro Primary Care Provider: Roderick Ryder Consulting Providers: Burke Velez Discharge Orders/Prescriptions Prescriptions: Continued (DME) Oxygen 3 liters NC Qty: 1 RF: 0 meloxicam 7.5 mg tablet 7.5 mg PO DAILY RF: 0 metformin 500 mg tablet 500 mg PO DAILY RF: 0 albuterol sulfate 90 mcg/actuation HFA aerosol inhaler 2 puff INHALATION Q4H PRN (Reason: Sob &/Or Wheezing) RF: 0 ropinirole 0.5 mg tablet 1.5 mg PO QHS RF: 0 ipratropium-albuterol 0.5-3MG/3 solution for nebulization 1 dose inhalation 4X/DAY RF: 0 budesonide 0.5 MG/2ML suspension for nebulization 1 dose inhalation BID RF: 0 metoprolol tartrate 50 mg Tablet 50 mg PO DAILY RF: 0 oxybutynin chloride 5 mg Tablet 5 mg PO DAILY RF: 0 sertraline 50 mg Tablet 50 mg PO DAILY RF: 0 hydrochlorothiazide 12.5 mg capsule 25 mg PO DAILY RF: 0 Held baclofen 10 mg tablet 10 mg PO TID RF: 0 Hold Instructions: until reevaluated at TCU in a few days Referrals / Follow Up: Roderick Ryder MD [Primary Care Provider] - Within 2 Weeks Disposition Disposition (needs filled in before D/C Order can be placed): Long Term Facility Charges/Coding Visit Charges Inpatient E&M: 22410 Disch Hosp
--- NOTE | 2021-07-25 13:23 | PCM.TXEXTCAR ---
Diet 07/25/21 01:07 Diet: Cardiac - Heart Healthy Food consistency:: Regular Liquid Consistency:: Regular/Thin Is pt able to select menu?: No Routine Orders/Code Status O2 Liters per Minute: 4 O2 Frequency: Continuous Routine Lab Work: CBC and BMP Code Status: Full Code Therapies Weight Bearing: Weight bearing as tolerated Extremity Affected:: Bilateral Lower Physical Therapy: Eval and Treat Occupational Therapy: Eval and Treat Problem/Diagnosis (1) Debility: Status: Acute (2) Right knee pain: Status: Acute Allergies/Procedures Done in Hospital Allergies lisinopril Adverse Reaction (Intermediate, Verified 07/24/21 20:50) cough Procedures: None Type of Care/Length of Stay Estimated LOS: Convalescent Care Less Than 30 days Type of Care Needed: Skilled Rehab Potential: Good Prognosis: Fair Additional Orders/Day of Discharge Day of Discharge: 07/25/21 Discharge Plan Admission Admit Date/Time: 07/25/21 00:13 Primary Reason for Your Visit: Debility Attending Provider: Natalie Fierro Primary Care Provider: Roderick Ryder Consulting Providers: Burke Velez Discharge Orders/Prescriptions Prescriptions: Continued (DME) Oxygen 3 liters NC Qty: 1 RF: 0 meloxicam 7.5 mg tablet 7.5 mg PO DAILY RF: 0 metformin 500 mg tablet 500 mg PO DAILY RF: 0 albuterol sulfate 90 mcg/actuation HFA aerosol inhaler 2 puff INHALATION Q4H PRN (Reason: Sob &/Or Wheezing) RF: 0 ropinirole 0.5 mg tablet 1.5 mg PO QHS RF: 0 ipratropium-albuterol 0.5-3MG/3 solution for nebulization 1 dose inhalation 4X/DAY RF: 0 budesonide 0.5 MG/2ML suspension for nebulization 1 dose inhalation BID RF: 0 metoprolol tartrate 50 mg Tablet 50 mg PO DAILY RF: 0 oxybutynin chloride 5 mg Tablet 5 mg PO DAILY RF: 0 sertraline 50 mg Tablet 50 mg PO DAILY RF: 0 hydrochlorothiazide 12.5 mg capsule 25 mg PO DAILY RF: 0 Held baclofen 10 mg tablet 10 mg PO TID RF: 0 Hold Instructions: until reevaluated at [facility] in a few days Referrals / Follow Up: Roderick Ryder MD [Primary Care Provider] - Within 2 Weeks Disposition Disposition (needs filled in before D/C Order can be placed): Senior Living Facility
[2021-07-25 16:56] LABS: Bedside Glucose 121 mg/dL (70-110)
--- NOTE | 2021-07-25 18:23 | NURSING ---
Dr. Elias will go to [facility] tomorrow to see knee
== END 2021-07-25 13:17 | disposition skilled nursing facility (03) ==
LOC: ED 07-25 00:27 → PCU 07-25 00:31
PROVIDERS: Admitting Provider Internal Medicine; Emergency Provider Emergency Medicine; PCP Family Medicine; Visit Provider Internal Medicine
DX: M25.561 Pain in right knee (principal); J44.9 Chronic obstructive pulmonary disease, unspecified; I27.20 Pulmonary hypertension, unspecified; I11.0 Hypertensive heart disease with heart failure; I50.31 Acute diastolic (congestive) heart failure; J96.11 Chronic respiratory failure with hypoxia; Z68.41 Body mass index [BMI] 40.0-44.9, adult; E66.01 Morbid (severe) obesity due to excess calories; E11.9 Type 2 diabetes mellitus without complications; G47.33 Obstructive sleep apnea (adult) (pediatric); M17.0 Bilateral primary osteoarthritis of knee; R32 Unspecified urinary incontinence; R26.2 Difficulty in walking, not elsewhere classified; R53.81 Other malaise; G25.81 Restless legs syndrome; Z99.81 Dependence on supplemental oxygen; M62.81 Muscle weakness (generalized); Z87.891 Personal history of nicotine dependence; Z91.19 Patient's noncompliance with other medical treatment and regimen; Z79.899 Other long term (current) drug therapy; Z79.84 Long term (current) use of oral hypoglycemic drugs; M51.36 Other intervertebral disc degeneration, lumbar region; M79.7 Fibromyalgia; K21.9 Gastro-esophageal reflux disease without esophagitis; R29.700 NIHSS score 0; R60.0 Localized edema
CPT/HCPCS: 36415; 71045; 73562; 80048; 80053; 81001; 82962; 83735; 83880; 84100; 84484; 85025; 87086; 87426; 93005; 93970; 94640; 96365; 96372; 96375; 96376; 97162; 97167; 99218; 99251; 99285; A4216; G0378; G0463; J1940; J2405

== ENCOUNTER 2021-07-25 19:15 | Inpatient (IN) | payer MEDICARE, SELFPAY ==
[2021-07-25 19:37] VITALS: BP 110/69; PULSE 70; RESP 16; TEMP 36.1; O2SAT 96
--- NOTE | 2021-07-25 20:03 | HP.PCM_ITS ---
HPI - General General Date of Admission: 07/25/21 HPI Narrative 07/24/2021 ENZO VAZQUEZ, is a 75 Female who presents to [facility] Emergency Department with weakness. 07/24/2021 EKG sinus rhythm with short IL, otherwise normal EKG. Woke up, unable to stand secondary to weakness. Usually walks with walker, afraid of falling. Daughter tried to help, but weakness persisted. Tried to get into tub, almost fell, EMS called. Always short of breath secondary to oxygen dependent COPD. She has chronic leg swelling. Unable to walk. UA +/- for urinary tract infection, urine culture sent Rocephin given. 07/25/2021 Admit to Hospital. X-ray right knee, Tylenol, Oxycodone, Ortho for osteoarthritis right knee. PT/OT for debility. Lasix 40mg iv bid for acute on chronic heart failure with preserved ejection fraction. Replace Magnesium 1.7. 07/25/2021 Admit to TCU with debility, here for rehabilitation, strengthening, prior to discharge home alone. PENDING SALE TO [facility] Medical History COPD (chronic obstructive pulmonary disease) Degenerative disc disease, lumbar Depression Edema of both lower extremities Essential hypertension Fibromyalgia GERD (gastroesophageal reflux disease) Morbid obesity with BMI of 40.0-44.9, adult Muscle spasm MICHEL (obstructive sleep apnea) Osteoarthritis RLS (restless legs syndrome) Type 2 diabetes mellitus without complication Home Medications albuterol sulfate 90 mcg/actuation aerosol inhaler 2 puff INHALATION Q4H PRN g 10/14/18 [History Last Taken Unknown] baclofen 10 mg tablet 10 mg PO TID 10/14/18 [History Last Taken Unknown] meloxicam 7.5 mg tablet 7.5 mg PO DAILY 10/14/18 [History Last Taken Unknown] metformin 500 mg tablet 500 mg PO DAILY tab 10/14/18 [History Last Taken Unknown] ropinirole 0.5 mg tablet 1.5 mg PO QHS tab 10/14/18 [History Last Taken Unknown] Oxygen #1 ea 10/27/18 [History Last Taken Unknown] budesonide 1 dose INHALATION BID 12/22/18 [History Last Taken Unknown] ipratropium-albuterol 1 dose INHALATION 4X/DAY 12/22/18 [History Last Taken Unknown] hydrochlorothiazide 25 mg PO DAILY 07/25/21 [History Last Taken Unknown] metoprolol tartrate 50 mg PO DAILY 07/25/21 [History Last Taken Unknown] oxybutynin chloride 5 mg PO DAILY 07/25/21 [History Last Taken Unknown] sertraline 50 mg PO DAILY 07/25/21 [History Last Taken Unknown] Allergy/AdvReac Type Severity Reaction Status Date / Time lisinopril AdvReac Intermediate cough Verified 07/24/21 20:50 Family History Mother Cancer lymphoma Father COPD (chronic obstructive pulmonary disease) Cancer bone Son Heart disease ischemic heart disease Surgical History History of appendectomy History of hysterectomy History of tonsillectomy Social History household members: none Smoking Status: Former smoker how long ago did patient quit smokin.5 years ago alcohol intake: current alcohol intake frequency: holidays/special occasions only substance use type: does not use caffeine: Yes Type: coffee Number of servings: 1 ROS Constitutional Constitutional: Denies chills, fever(s) or weight gain ENT HEENT: Denies headache(s), nasal congestion or nasal discharge Cardiovascular Cardiovascular: Denies chest pain or palpitations Respiratory/Chest Respiratory/Chest: Denies cough, excessive phlegm production or shortness of b reath with exertion Gastrointestinal Gastrointestinal: Denies abdominal pain, nausea or vomiting Genitourinary Genitourinary: Denies dysuria Musculoskeletal Musculoskeletal: Denies joint pain or joint swelling Integumentary Integumentary: Denies rash or wounds Neurologic Neurologic: Denies focal weakness, numbness or tingling Psychiatric Psychiatric: Denies anxiety, auditory hallucinations, depression, homicidal ideation or suicidal ideation Physical Exam Const alert and oriented x3 General Appearance: cooperative HEENT normocephalic Eyes PERRL and EOMs intact bilaterally Neck supple, no JVD and no carotid bruits Resp normal respiratory effort, normal air movement and clear to auscultation bilaterally Cardio regular rate and regular rhythm GI normal to inspection, nondistended, normoactive bowel sounds, non-tender and non-distended Extremity normal capillary refill General Extremity: Negative for edema Skin no rashes or lesions noted General Skin Exam: no breakdown Psych affect normal Appearance: appropriate Results Lab / Micro Data Result Diagrams: 07/26/21 05:19 07/26/21 05:19 Assessment & Plan Assessment/Plan (1) Debility: (2) Generalized muscle weakness: (3) Right knee pain: QUALIFIERS: Chronicity: acute Qualified Code(s): M25.561 - Pain in right knee (4) Debility: (5) Urinary tract infection: (6) Acute on chronic diastolic congestive heart failure: (7) Chronic obstructive pulmonary disease: (8) Muscle spasm: (9) Hypertension: (10) Osteoarthritis: (11) Diabetes mellitus: (12) Gastroesophageal reflux disease: (13) Restless leg syndrome: PLAN: 75 year old female with below past medical history hospitalized for weakness, complicated by osteoarthritis right knee, urinary tract infection, acute on chronic diastolic congestive heart failure, admitted to TCU with debility, here for rehabilitation, strengthening, prior to discharge home alone. * Debility - PT/OT. * Pain - Tylenol 1000mg q6h prn pain (1-3), Tramadol 50mg q6h prn pain (4-5), Oxycodone 5mg q4h prn pain (6-10)> * Bowel - Miralax 17gm daily, Senna/coalce 1 tablet bid, Dulcolax 10mg daily prn. * Adult immunization - Administer prevnar 20, fluzone, covid19 vaccine as a ppropriate. * DVT prophylaxis - Lovenox 40mg sc daily. * COPD - Budesonide 0.5mg nebulized bid, Duoneb 2.5mg 4x/day, Albuterol 2 puffs q4h prn. * Hypertension - Metoprolol 50mg daily, HCTZ 25mg daily. * Osteoarthritis right knee - Meloxicam 7.5mg daily. * Diabetes Mellitus II - Metformin 500mg daily, monitor sugars. * Overactive active bladder - Oxybutynin 5mg daily. * Restless leg syndrome - Mirapex 1.5mg qhs. * Depression - Sertraline 50mg daily, stable chronic assisted use, GDR not recommended. * Osteoarthritis of knees - Dr. Velez to perform right intraarticular steroid injection, will add Medrol Dose pack as well.
[2021-07-25 21:02] VITALS: BMI 36.3
[2021-07-25] MEDS: Pramipexole Di-HCl 1 MG Tablet 1.5 MG PO (21:33)
--- NOTE | 2021-07-26 00:39 | NURSING ---
Patient arrived on unit at approximately 19:15, accompanied by daughter and hospital staff.
[2021-07-26 05:00] VITALS: BP 135/90; PULSE 79
[2021-07-26 05:01] VITALS: BP 135/90; PULSE 79
[2021-07-26] MEDS: Sertraline 50 MG Tablet PO (05:01)
[2021-07-26] MEDS: Meloxicam 7.5 MG Tablet PO (05:01)
[2021-07-26] MEDS: Metoprolol Tartrate 50 MG Tablet PO (05:01)
[2021-07-26] MEDS: hydroCHLOROthiazide 12.5mg 25 MG PO (05:07)
[2021-07-26] MEDS: Enoxaparin 40 MG/0.4 ML Syringe SC (05:07)
[2021-07-26 05:50] LABS: Absolute Lymphocyte Count 0.49 X10^3/uL (0.83-4.51); Basophil# 0.03 X10^3/uL; Basophil% 0.5 % (0-1); Eosinophil# 0.05 X10^3/uL; Eosinophils% 0.8 % (0-5); Hematocrit 36.9 % (37-47); Hemoglobin 11.3 g/dL (12.0-15.0); Lymphocyte # 0.49 X10^3/ul (0.83-4.51); Lymphocyte % 7.8 % (19-41); Mean Corp Hgb Conc 30.6 g/dL (32-36); Mean Corpuscular Hgb 31.1 pg (27.0-32.0); Mean Corpuscular Volume 101.7 fL (81-99); Mean Platelet Vol. 9.6 fl (6.2-12.0); Monocyte% 11.1 % (0-10); NRBC Flagged by Analyzer 0 % (0-5); Neutrophil # 4.99 X10^3/uL (2.7-7.7); Neutrophil % 79.3 % (47-70); POSITIVE DIFFERENTIAL YES; Platelet Count 174 K/mm3 (150-450); RBC Distribution Width CV 12.8 % (11.6-14.6); RBC Distribution Width SD 48.2 fl (35.1-43.9); Red Blood Count 3.63 M/mm3 (4.2-5.4); White Blood Count 6.3 K/mm3 (4.4-11.0)
[2021-07-26 05:57] LABS: Differential Indicated SCAN CRITERIA MET
[2021-07-26 06:25] LABS: Anion Gap 2 (5-15); BUN 23 mg/dL (7-18); BUN/Creat Ratio 32.2 RATIO (10-20); Calcium,Total 8.8 mg/dL (8.5-10.1); Chloride 91 mmol/L (98-107); Creatinine, Serum 0.72 mg/dL (0.55-1.02); EST Glomerular Filtration Rate 85 mL/min (>60); Est Glom Filt Rate - Afr Amer 103 mL/min (>60); Estimated Creatinine Clearance 43.27 ml/min; Glucose 152 mg/dL (74-106); Potassium 3.6 mmol/L (3.5-5.1); Sodium Level 137 mmol/L (136-145)
[2021-07-26 06:36] LABS: Atypical Lymphocyte RARE %; Differential Comment SCANNED
[2021-07-26 07:03] VITALS: PULSE 70; RESP 18; O2SAT 98
[2021-07-26] MEDS: Ipratropium/Albuterol Sulfate 3 ML AMPUL.NEB INHALATION ×2 (07:03→19:05)
[2021-07-26] MEDS: MethylPREDNISolone DosePak 4 MG BOX PO ×4 (09:20→21:09)
[2021-07-26] MEDS: metFORMIN HCl 500 MG Tablet PO (09:20)
[2021-07-26] MEDS: Oxybutynin 5 MG Tablet PO (09:20)
[2021-07-26] MEDS: traMADol 50 MG Tablet PO (09:24)
[2021-07-26] MEDS: Tuberculin,Purif.prot.deriv. 50 TU/ML Vial 0.1 ML ID (09:25)
--- NOTE | 2021-07-26 11:28 | CON.PCM_ITS ---
Assessment & Plan Assessment/Plan (1) Right knee DJD: QUALIFIERS: Osteoarthritis type: primary Qualified Code(s): M17.11 - Unilateral primary osteoarthritis, right knee PLAN: right knee djd. right knee injected today under sterile technique with 40 mg depomedro and 4 cc 0.25% bupivicaine. she may have repeat injection in 3 months if helpful. HPI Consult Data Date of Consult: 07/26/21 HPI Narrative HPI Narrative: ENZO VAZQUEZ, is a 75 F whowho has acute on chronic right knee pain. there is no injury. she has not had any injections in the past. x-rays were taken no acute fracture. advanced particularly lateral knee arthrosis. [facility] Medical History (Updated 07/26/21 @ 11:[address] Burke Velez ) COPD (chronic obstructive pulmonary disease) Degenerative disc disease, lumbar Depression Edema of both lower extremities Essential hypertension Fibromyalgia GERD (gastroesophageal reflux disease) Morbid obesity with BMI of 40.0-44.9, adult Muscle spasm MICHEL (obstructive sleep apnea) Osteoarthritis RLS (restless legs syndrome) Type 2 diabetes mellitus without complication Home Medications albuterol sulfate 90 mcg/actuation aerosol inhaler 2 puff INHALATION Q4H PRN g 10/14/18 [History Last Taken Unknown] baclofen 10 mg tablet 10 mg PO TID 10/14/18 [History Last Taken Unknown] meloxicam 7.5 mg tablet 7.5 mg PO DAILY 10/14/18 [History Last Taken Unknown] metformin 500 mg tablet 500 mg PO DAILY tab 10/14/18 [History Last Taken Unknown] ropinirole 0.5 mg tablet 1.5 mg PO QHS tab 10/14/18 [History Last Taken Unknown] Oxygen #1 ea 10/27/18 [History Last Taken Unknown] budesonide 1 dose INHALATION BID 12/22/18 [History Last Taken Unknown] ipratropium-albuterol 1 dose INHALATION 4X/DAY 12/22/18 [History Last Taken Unknown] hydrochlorothiazide 25 mg PO DAILY 07/25/21 [History Last Taken Unknown] metoprolol tartrate 50 mg PO DAILY 07/25/21 [History Last Taken Unknown] oxybutynin chloride 5 mg PO DAILY 07/25/21 [History Last Taken Unknown] sertraline 50 mg PO DAILY 07/25/21 [History Last Taken Unknown] Allergy/AdvReac Type Severity Reaction Status Date / Time lisinopril AdvReac Intermediate cough Verified 07/24/21 20:50 Family History Mother Cancer lymphoma Father COPD (chronic obstructive pulmonary disease) Cancer bone Son Heart disease ischemic heart disease Surgical History History of appendectomy History of hysterectomy History of tonsillectomy Social History household members: none Smoking Status: Former smoker how long ago did patient quit smokin.5 years ago alcohol intake: current alcohol intake frequency: holidays/special occasions only substance use type: does not use caffeine: Yes Type: coffee Number of servings: 1 Physical Exam Const General Appearance: cooperative and comfortable; Negative for in distress or combative Orientation / Consciousness: awake Extremity Extremity Narrative: right knee without erythema/ecchymosis or significant joint effusion. there is a fixed valgus deformity. there in no pain in the mid arc of motion. there is no collateral or cruciate instability. there is bilateral lower extremity venous stasis dermatitis no sign of infection. Lab / Micro Data Result Diagrams: 07/26/21 05:19 07/26/21 05:19 Labs: Laboratory Results - last 24 hr 07/26/21 05:19: WBC 6.3, RBC 3.63 L, Hgb 11.3 L, Hct 36.9 L, MCV 101.7 H, MCH 31.1, MCHC 30.6 L, RDW Std Deviation 48.2 H, RDW Coeff of Stephenie 12.8, Plt Count 174, MPV 9.6, Immature Gran % (Auto) 0.500, Neut % (Auto) 79.3 H, Lymph % (Auto) 7.8 L, Crawford % (Auto) 11.1 H, Eos % (Auto) 0.8, Baso % (Auto) 0.5, Absolute Neuts (auto) 5.0, Absolute Lymphs (auto) 0.49 L, Nucleated RBC % 0, Differential Comment SCANNED, Atypical Lymphocytes RARE 07/26/21 05:19: Sodium 137, Potassium 3.6, Chloride 91 L, Carbon Dioxide 44.0 H, Anion Gap 2 L, BUN 23 H, Creatinine 0.72, Estim Creat Clear Calc 43.27, Est GFR (MDRD) Af Amer 103, Est GFR (MDRD) Non-Af 85, BUN/Creatinine Ratio 32.2 H, Glucose 152 H, Calcium 8.8
--- NOTE | 2021-07-26 11:30 | NURSING ---
dr york here and injected pt RT knee d/t pain/stiffness.
[2021-07-26 14:55] VITALS: BP 130/79; PULSE 65; RESP 10; TEMP 36.2; O2SAT 97
--- NOTE | 2021-07-26 16:15 | CASEMGMT ---
Addendum entered by Evangelina Pacheco 07/26/21 16:38: requesting Palliative. Order entered. Referral made to [facility]. Original Note: Social Work Met with patient and dtr to complete initial assessment. Pt would like dtrBeba, to be primary contact and remained involved in updates/DC plans. Discussed code status and MOLST form. Pt confirmed DNR-CCA, no intubation. MOLST communicated to , placed in chart. Explained [facility] and continued stay is not guaranteed with each review. The goal is for the pt to return home with better level of independence. 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 Inquired about alternative DC plan. Both unknown of answer. Suggested nonskilled HHC, [place] options or [place]. Focused on increasing socialization as pt discussed many close deaths the past several years and with the pandemic, pt's socialization has greatly decreased. Pt was not opposed to the idea, but would like the recommendations at time of DC. Provided nonskilled HHC list and Medical Alert information. Offered ongoing support throughout stay. SW to continue to follow for DC planning. Evangelina Pacheco ,IRMA HANDS PARTER
[2021-07-26] MEDS: Glucerna Shake 120 ML LIQUID PO (17:09)
[2021-07-26 19:05] VITALS: PULSE 79; RESP 18
[2021-07-26] MEDS: Budesonide Respules 0.5 MG/2 ML AMPUL.NEB. INHALATION (19:05)
[2021-07-26] MEDS: Pramipexole Di-HCl 1 MG Tablet 1.5 MG PO (21:11)
[2021-07-26 22:00] VITALS: PULSE 74; RESP 18; O2SAT 91
[2021-07-27] MEDS: traMADol 50 MG Tablet PO (03:47)
[2021-07-27 05:44] VITALS: PULSE 64
[2021-07-27] MEDS: Enoxaparin 40 MG/0.4 ML Syringe SC (05:44)
[2021-07-27] MEDS: Metoprolol Tartrate 50 MG Tablet PO (05:44)
[2021-07-27] MEDS: Sertraline 50 MG Tablet PO (05:44)
[2021-07-27] MEDS: Meloxicam 7.5 MG Tablet PO (05:44)
[2021-07-27] MEDS: hydroCHLOROthiazide 12.5mg 25 MG PO (05:45)
[2021-07-27 07:30] VITALS: PULSE 66; RESP 18; O2SAT 98
[2021-07-27] MEDS: Ipratropium/Albuterol Sulfate 3 ML AMPUL.NEB INHALATION ×3 (07:30→19:30)
[2021-07-27] MEDS: Budesonide Respules 0.5 MG/2 ML AMPUL.NEB. INHALATION ×2 (07:30→19:30)
[2021-07-27] MEDS: Glucerna Shake 120 ML LIQUID PO ×3 (08:42→17:20)
[2021-07-27] MEDS: metFORMIN HCl 500 MG Tablet PO (08:42)
[2021-07-27] MEDS: Oxybutynin 5 MG Tablet PO (08:42)
[2021-07-27] MEDS: MethylPREDNISolone DosePak 4 MG BOX PO ×4 (08:43→20:11)
[2021-07-27 13:15] VITALS: PULSE 70; RESP 18
[2021-07-27 15:55] VITALS: BP 141/73; PULSE 66; RESP 16; TEMP 36.7; O2SAT 97
[2021-07-27 19:30] VITALS: PULSE 81; RESP 18; O2SAT 94
[2021-07-27] MEDS: Pramipexole Di-HCl 1 MG Tablet 1.5 MG PO (20:12)
--- NOTE | 2021-07-28 00:31 | NURSING ---
Pt reports BLE feel like they are burning. Sensation is not new. Has informed PCP in the past and denies being prescribed any medications for this symptom. Then informed this nurse she took Lyrica approximately 10 years ago and noted swelling in her feet. In no acute distress. Feels like her nerves in general are preventing her from sleeping. 800 ml straw, clear urine emptied from purewick. Reviewed MAR after leaving pt's room and pt is taking Mirapex at hs. SANDRA Madera, updated.
[2021-07-28] MEDS: traMADol 50 MG Tablet PO ×3 (00:36→21:02)
[2021-07-28] MEDS: Enoxaparin 40 MG/0.4 ML Syringe SC (05:18)
[2021-07-28 05:19] VITALS: BP 157/82; PULSE 97
[2021-07-28] MEDS: Metoprolol Tartrate 50 MG Tablet PO (05:19)
[2021-07-28] MEDS: Sertraline 50 MG Tablet PO (05:19)
[2021-07-28] MEDS: Meloxicam 7.5 MG Tablet PO (05:19)
[2021-07-28] MEDS: hydroCHLOROthiazide 12.5mg 25 MG PO (05:19)
[2021-07-28 06:21] LABS: Bedside Glucose 133 mg/dL (70-110)
[2021-07-28 07:24] VITALS: PULSE 72; RESP 20; O2SAT 92
[2021-07-28] MEDS: Ipratropium/Albuterol Sulfate 3 ML AMPUL.NEB INHALATION ×2 (07:24→13:26)
[2021-07-28] MEDS: metFORMIN HCl 500 MG Tablet PO (07:35)
[2021-07-28] MEDS: MethylPREDNISolone DosePak 4 MG BOX PO ×4 (07:35→21:03)
[2021-07-28] MEDS: Oxybutynin 5 MG Tablet PO (07:35)
[2021-07-28] MEDS: Glucerna Shake 120 ML LIQUID PO ×3 (07:35→17:53)
[2021-07-28 13:01] VITALS: BP 132/71; PULSE 68; RESP 16; TEMP 36.6; O2SAT 97
[2021-07-28 13:26] VITALS: PULSE 77; RESP 18
--- NOTE | 2021-07-28 15:26 | NURSING ---
patient's daughter up to nurses station multiple times this shift with many concerns about her mothers condition. This nurse has reviewed medications with daughter, explained why pt is taking diabetic medication and the reason for diabetic diet. Daughter concerned multiple times that her mother is confused and making odd statements. When this nurse assesses the patient, pt A&Ox3 and is able to carry on a rational conversation. Additionally, daughter was concerned that the pt was sleeping too much yesterday and this nurse reviewed that pt had therapy and this could contribute to tiredness. Daughter felt that was not the case. Pt was awake for most the of shift yesterday and has been awake all this shift.
--- NOTE | 2021-07-28 16:12 | NURSING ---
Daughter to nurses station and stating the pt is c/o dizziness. Will contact Dr. Justice.
--- NOTE | 2021-07-28 16:22 | NURSING ---
Notified Dr. Justice of daughter reporting pt is having heartburn and dizziness. Received order for FRANTZ PRN, Meclizine 25mg TID PRN. Also notified Dr. Justice pt has not had a BM in 3 days. Received order for soap suds enema, and Senna-Colace 1 tab BID. Ordered repeated back.
[2021-07-28] MEDS: Senna/Docusate Sodium 1 Tablet PO (17:53)
--- NOTE | 2021-07-28 17:54 | NURSING ---
Asked pt if she is currently having nausea or dizziness, pt denies both.
[2021-07-28] MEDS: Pramipexole Di-HCl 1 MG Tablet 1.5 MG PO (21:01)
[2021-07-28 21:10] VITALS: O2SAT 89
--- NOTE | 2021-07-28 22:48 | NURSING ---
Spoke w/ Dr. Justice via phone. Updated on characteristics of urine emptied from purewick- cloudy and yellow. Pt mentation with slight deviation from baseline from last night.
--- NOTE | 2021-07-28 23:25 | NURSING ---
UA and C+S obtained via st cath per dr order using sterile technique x 1 attempt. Pt tolerated well. Return of 200 ml straw colored urine w/ several flecks of white sediment. Specimens sent to lab via tube system.
[2021-07-28 23:47] LABS: Bacteria 0 SEEN /hpf (None Seen); Mucous, Urine 0 SEEN /hpf (<or=2+); Red Blood Cells-Urine 0 SEEN /hpf (0-5); Squamous Epithelial Cells - UA 0 SEEN /hpf (5-10); White Blood Cells 0 SEEN /hpf (0-5)
[2021-07-29 00:30] LABS: Glucose, Dipstick Normal (Normal); Ketone-Dipstick Negative (Negative); Leukocyte Esterase-Dipstick Negative /ul (Negative); Nitrite-Dipstick Negative (Negative); Occult Blood-Urine Negative /ul (Negative); Protein-Dipstick Negative (Negative); Specific Gravity, Urine 1.015 (1.002-1.030); Urine Bilirubin Dipstick Negative (Negative); Urine Urobilinogen Normal (Normal)
[2021-07-29 00:31] LABS: Color, Urine Yellow (Yellow); Urine Clarity Clear (Clear)
[2021-07-29] MEDS: Enoxaparin 40 MG/0.4 ML Syringe SC (04:57)
[2021-07-29] MEDS: Meloxicam 7.5 MG Tablet PO (04:59)
[2021-07-29] MEDS: hydroCHLOROthiazide 12.5mg 25 MG PO (04:59)
[2021-07-29] MEDS: Sertraline 50 MG Tablet PO (04:59)
[2021-07-29 05:01] VITALS: BP 159/95; PULSE 102
[2021-07-29] MEDS: Metoprolol Tartrate 50 MG Tablet PO (05:01)
[2021-07-29] MEDS: Senna/Docusate Sodium 1 Tablet PO ×2 (05:01→17:42)
[2021-07-29 06:31] LABS: Bedside Glucose 143 mg/dL (70-110)
[2021-07-29 07:15] VITALS: PULSE 72; RESP 18; O2SAT 94
[2021-07-29] MEDS: Budesonide Respules 0.5 MG/2 ML AMPUL.NEB. INHALATION ×2 (07:15→19:01)
[2021-07-29] MEDS: Ipratropium/Albuterol Sulfate 3 ML AMPUL.NEB INHALATION ×3 (07:15→19:01)
[2021-07-29] MEDS: Glucerna Shake 120 ML LIQUID PO ×3 (07:55→17:42)
[2021-07-29] MEDS: MethylPREDNISolone DosePak 4 MG BOX PO ×3 (07:56→20:01)
[2021-07-29] MEDS: Oxybutynin 5 MG Tablet PO (07:57)
[2021-07-29] MEDS: metFORMIN HCl 500 MG Tablet PO (07:57)
[2021-07-29] MEDS: Acetaminophen 500 MG Tablet 1000 MG PO (08:03)
[2021-07-29] MEDS: Calcium Carbonate 500 MG Tablet PO ×2 (08:07→12:38)
--- NOTE | 2021-07-29 09:20 | NURSING ---
THIS NURSE HEARD PT CRYING AND WENT IN ROOM. PT WITH THERAPY AND THERAPY STATED PT WAS WALKING AND WENT TO SIT IN RECLINER AND KNEE POPPED. ASKED PT IF SHE HAD ANY PAIN AND PT STATED NO. REPORTED TO RN
[2021-07-29 12:00] VITALS: O2SAT 95
[2021-07-29 13:24] VITALS: PULSE 85; RESP 18
[2021-07-29 13:39] VITALS: BP 143/98; PULSE 79; RESP 16; TEMP 36.5; O2SAT 94
[2021-07-29 19:01] VITALS: PULSE 95; RESP 18
[2021-07-29] MEDS: Pramipexole Di-HCl 1 MG Tablet 1.5 MG PO (20:02)
[2021-07-29] MEDS: traMADol 50 MG Tablet PO (21:31)
--- NOTE | 2021-07-29 22:14 | NURSING ---
Patient c/o pain in knees and ankle. PRN tramadol administered. Will continue to monitor.
[2021-07-30] VITALS (8 sets, daily range): BP systolic 131–156; BP diastolic 66–91; PULSE 71–97; RESP 18–22; TEMP 36; O2SAT 93–97
[2021-07-30 06:36] LABS: Bedside Glucose 124 mg/dL (70-110)
[2021-07-30] MEDS: Budesonide Respules 0.5 MG/2 ML AMPUL.NEB. INHALATION ×2 (07:01→19:09)
[2021-07-30] MEDS: Ipratropium/Albuterol Sulfate 3 ML AMPUL.NEB INHALATION ×3 (07:01→19:09)
[2021-07-30] MEDS: Enoxaparin 40 MG/0.4 ML Syringe SC (07:22)
[2021-07-30] MEDS: Senna/Docusate Sodium 1 Tablet PO ×2 (07:23→17:12)
[2021-07-30] MEDS: Meloxicam 7.5 MG Tablet PO (07:23)
[2021-07-30] MEDS: Metoprolol Tartrate 50 MG Tablet PO ×2 (07:23→17:10)
[2021-07-30] MEDS: hydroCHLOROthiazide 12.5mg 25 MG PO (07:23)
[2021-07-30] MEDS: Sertraline 50 MG Tablet PO (07:23)
--- NOTE | 2021-07-30 07:41 | NURSING ---
Written communication left for Dr. Justice regarding noted elevated BP/pulse this AM. on unit.
[2021-07-30] MEDS: guaiFENesin 600 MG Tablet PO ×2 (08:18→17:10)
[2021-07-30] MEDS: Glucerna Shake 120 ML LIQUID PO ×3 (08:19→17:09)
[2021-07-30] MEDS: metFORMIN HCl 500 MG Tablet PO (08:19)
[2021-07-30] MEDS: Oxybutynin 5 MG Tablet PO (08:19)
[2021-07-30] MEDS: oxyCODONE 5 MG Tablet PO (18:48)
[2021-07-30] MEDS: traMADol 50 MG Tablet PO (20:20)
[2021-07-30] MEDS: Pramipexole Di-HCl 1 MG Tablet 1.5 MG PO (20:20)
[2021-07-31] VITALS (7 sets, daily range): BP systolic 116–135; BP diastolic 65–82; PULSE 65–104; RESP 15–18; TEMP 36.6; O2SAT 96–100
[2021-07-31] MEDS: oxyCODONE 5 MG Tablet PO ×2 (05:32→13:29)
[2021-07-31] MEDS: Enoxaparin 40 MG/0.4 ML Syringe SC (05:32)
[2021-07-31] MEDS: Senna/Docusate Sodium 1 Tablet PO ×2 (05:33→18:21)
[2021-07-31] MEDS: Meloxicam 7.5 MG Tablet PO (05:33)
[2021-07-31] MEDS: Metoprolol Tartrate 50 MG Tablet PO ×2 (05:33→18:21)
[2021-07-31] MEDS: guaiFENesin 600 MG Tablet PO ×2 (05:33→18:21)
[2021-07-31] MEDS: Sertraline 50 MG Tablet PO (05:33)
[2021-07-31] MEDS: hydroCHLOROthiazide 12.5mg 25 MG PO (05:33)
[2021-07-31 06:36] LABS: Bedside Glucose 134 mg/dL (70-110)
[2021-07-31] MEDS: Ipratropium/Albuterol Sulfate 3 ML AMPUL.NEB INHALATION ×2 (06:43→18:09)
[2021-07-31] MEDS: Budesonide Respules 0.5 MG/2 ML AMPUL.NEB. INHALATION ×2 (06:43→18:09)
[2021-07-31] MEDS: Oxybutynin 5 MG Tablet PO (07:50)
[2021-07-31] MEDS: Glucerna Shake 120 ML LIQUID PO ×3 (07:50→18:21)
[2021-07-31] MEDS: metFORMIN HCl 500 MG Tablet PO (07:51)
--- NOTE | 2021-07-31 09:55 | CASEMGMT ---
Social Work SW completed Brief Interview for Mental Status(12) and Resident Mood Interview--PHQ-9(6) completed this date. We spoke about pt's mood, she states she does not feel down. She did state however that she lost her two years ago, and his brother 4 months later. She expressed frustration with feeling fidgety all the time. SW offered support. SW asked pt about counseling, pt states, I know what I need to do, it's just a matter of doing it. When asked a second time, pt gave the same answer. SW asked about medication, pt states she takes a medication for borderline. (Pt is on Zoloft.) SW will continue to follow, will be available to make referral for mental health services if pt indicates it would be helpful. BUNNY Matt
--- NOTE | 2021-07-31 14:31 | PCM.PN.RX ---
Progress Note - Pharmacy Subjective: TCU ADMISSION Objective: Allergies lisinopril Adverse Reaction (Intermediate, Verified 07/24/21 20:50) cough pregabalin [From Lyrica] Adverse Reaction (Verified 07/28/21 00:31) Swelling Current Medications Generic Name Dose Route Start Last Admin Trade Name Freq PRN Reason Stop Dose Admin Acetaminophen 1,000 mg 07/25/21 20:16 07/29/21 08:03 Acetaminophen 500 Mg Tablet PO 1,000 mg Q6H PRN PRN Administration Pain Score 1-3 Albuterol Sulfate 2 puff 07/25/21 19:51 Albuterol Sulfate Hfa 6.7 Gm Inhaler (200 Puffs) INHALATION Q4H PRN Sob &/Or Wheezing Albuterol/Ipratropium 3 ml 07/25/21 20:30 07/31/21 06:43 Ipratropium/Albuterol Sulfate 3 Ml Ampul.Neb INHALATION 3 ml Q6HWA.RT DIAZ Administration Budesonide 0.5 mg 07/26/21 06:00 07/31/21 06:43 Budesonide Respules 0.5 Mg/2 Ml Ampul.Neb. INHALATION 0.5 mg BID.RT DIAZ Administration Calcium Carbonate 500 mg 07/28/21 16:21 07/29/21 12:38 Calcium Carbonate 500 Mg Tablet PO 500 mg Q4H PRN PRN Administration HEARTBURN OR INDIGESTION Enoxaparin Sodium 40 mg 07/26/21 06:00 07/31/21 05:32 Enoxaparin 40 Mg/0.4 Ml Syringe SC 40 mg DAILY@0600 DIAZ Administration Guaifenesin 600 mg 07/30/21 08:00 07/31/21 05:33 Guaifenesin 600 Mg Tablet PO 600 mg BID DIAZ Administration Hydrochlorothiazide 25 mg 07/26/21 06:00 07/31/21 05:33 Hydrochlorothiazide 12.5mg PO 25 mg DAILY DIAZ Administration Meclizine HCl 25 mg 07/28/21 16:20 Meclizine Hcl 25 Mg Tablet PO TID PRN PRN DIZZINESS Meloxicam 7.5 mg 07/26/21 06:00 07/31/21 05:33 Meloxicam 7.5 Mg Tablet PO 7.5 mg DAILY DIAZ Administration Metformin HCl 500 mg 07/26/21 08:00 07/31/21 07:51 Metformin Hcl 500 Mg Tablet PO 500 mg 0800 DIAZ Administration Metoprolol Tartrate 50 mg 07/30/21 18:00 07/31/21 05:33 Metoprolol Tartrate 50 Mg Tablet PO 50 mg BID DIAZ Administration Nutritional Formula (Lactose Free) 120 ml 07/26/21 17:45 07/31/21 11:51 Glucerna Shake 120 Ml Liquid PO 120 ml TIDCM DIAZ Administration Oxybutynin Chloride 5 mg 07/26/21 08:00 07/31/21 07:50 Oxybutynin 5 Mg Tablet PO 5 mg 0800 [facility] Administration Oxycodone HCl 5 mg 07/25/21 20:16 07/31/21 13:29 Oxycodone 5 Mg Tablet PO 5 mg Q4H PRN PRN Administration Pain Score 6-10 Pramipexole Dihydrochloride 1.5 mg 07/25/21 22:00 07/30/21 20:20 Pramipexole Di-Hcl 1 Mg Tablet PO 1.5 mg QHS [facility] Administration Senna/Docusate Sodium 1 tablet 07/28/21 18:00 07/31/21 05:33 Senna/Docusate Sodium 1 Tablet PO 1 tablet BID [facility] Administration Sertraline HCl 50 mg 07/26/21 06:00 07/31/21 05:33 Sertraline 50 Mg Tablet PO 50 mg DAILY [facility] Administration Sodium Chloride 10 - 40 ml 07/26/21 07:57 0.9% Saline Lock 10 Ml Syringe IV UD PRN SALINE FLUSH Tramadol HCl 50 mg 07/25/21 20:16 07/30/21 20:20 Tramadol 50 Mg Tablet PO 50 mg Q6H PRN PRN Administration Pain Score 4-5 Tuberculin PPD 0.1 ml 08/02/21 10:00 Tuberculin,Purif.Prot.Deriv. 50 Tu/Ml Vial ID 08/02/21 10:01 X1 ONE Problem List (Last Reviewed 07/25/21 @ 23:50 by Yasmany Garcia) Right knee DJD (Acute) Restless leg syndrome (Acute) Gastroesophageal reflux disease (Acute) Diabetes mellitus (Acute) Osteoarthritis (Acute) Hypertension (Chronic) Muscle spasm (Acute) Chronic obstructive pulmonary disease (Chronic) Acute on chronic diastolic congestive heart failure (Chronic) Debility (Acute) Right knee pain (Acute) Debility (Acute) Generalized muscle weakness (Acute) Urinary tract infection (Acute) Vital Signs Temp Pulse Resp BP Pulse Ox 97.8 F 88 15 116/65 98 07/31/21 13:03 07/31/21 13:13 07/31/21 13:13 07/31/21 13:03 07/31/21 13:13 Oxygen Flow Rate (L/min) 4 Oxygen Delivery Method Nasal Cannula Weight: 96.2 kg Body Mass Index (BMI) 36.3 Sodium 137 mmol/L (136-145) 07/26/21 05:19 Potassium 3.6 mmol/L (3.5-5.1) 07/26/21 05:19 Chloride 91 mmol/L (98-107) L 07/26/21 05:19 Carbon Dioxide 44.0 mmol/L (21.0-32.0) H 07/26/21 05:19 Anion Gap 2 (5-15) L 07/26/21 05:19 BUN 23 mg/dL (7-18) H 07/26/21 05:19 Creatinine 0.72 mg/dL (0.55-1.02) 07/26/21 05:19 Est GFR (MDRD) Af Amer 103 mL/min (>60) 07/26/21 05:19 Est GFR (MDRD) Non-Af 85 mL/min (>60) 07/26/21 05:19 BUN/Creatinine Ratio 32.2 RATIO (10-20) H 07/26/21 05:19 Glucose 152 mg/dL (74-106) H 07/26/21 05:19 Assessment/Plan: 1. Pain: Tylenol 1000mg PO Q6h PRN Pain 1-3, Tramadol 50mg PO Q6h PRN Pain 4-5, Oxycodone 5mg PO Q4h PRN Pain 6-10. Please continue to monitor renal function (Crcl = 43mL/min), increased/decreased S/S pain, oversedation, PRN medication usage. 2. HTN: Hydrochlorothiazide 25mg PO Daily, Lopressor 50mg PO BID. Please continue to monitor BP, pulse, electrolytes. 3. Type II Diabetes: Metformin 500mg PO Daily. Please continue to monitor BG levels, S/S hypoglycemia, A1c as clinically indicated. 4. COPD/ Cough: Duoneb Q6hWA, Budesonide nebulization BID, Mucinex 600mg PO BID, Albuterol inhaler 2 puffs Q4h PRN SOB/wheezing. Please continue to monitor HR, PRN medication usage, improvement in cough symptoms/mucus production, S/S exacerbation. 5. Overactive Bladder:Oxybutynin 5mg PO Daily. Please continue to monitor for medication effectiveness, urine retention. *6. Restless Leg Syndrome: Pramipexole 1.5mg PO QHS. Please continue to monitor for headache, hallucinations, dizziness. Noted that patient has meclizine ordered PRN for dizziness (no doses given yet). If dizziness persists, please evaluate dosing for patient, as this can possibly be contributing, thanks. 7. Dizziness: Meclizine 25mg PO TID PRN. Please continue to monitor PRN medication use. See note above regarding Pramipexole. 8. Osteoarthritis of R knee: Mobic 7.5mg PO Daily, completed a Medrol dose-joselin 07/30, and had injection at joint site (completed by ortho). Please continue to monitor S/S nausea/vomiting, stomach upset, improvement in arthritis symptoms, renal function, S/S bleeding/bruising. 9. GERD: Tums 500mg PO Q4h PRN. Please continue to monitor for GERD flare-ups. May also encourage non-pharmacologic treatments to help minimize exacerbations. 10. DVT Prophylaxis: Lovenox 40mg SC Daily. Please continue to monitor renal function (CrCl = 43 mL/min), S/S bleeding/bruising. Psychotropic Medications: Depression: Zoloft 50mg PO Daily. Please see note in H/P regarding GDR recommendation. Unnecessary Medications: None Bowel Regimen: Senna/Docusate 1 tab PO BID. Please continue to monitor for increased/decreased constipation and/or diarrhea. Date of Note:: 07/31/21
--- NOTE | 2021-07-31 14:49 | NURSING ---
notified DR Philippe office regarding pt still c/o pain Rt knee pain even after injection last week as well as LT knee pain, RT worse than left. awaiting return call
[2021-07-31] MEDS: Pramipexole Di-HCl 1 MG Tablet 1.5 MG PO (20:07)
[2021-07-31] MEDS: Polyethylene Glycol 3350 17 GM PACKET PO (20:13)
[2021-08-01] MEDS: Senna/Docusate Sodium 1 Tablet PO ×2 (05:17→17:31)
[2021-08-01] MEDS: Enoxaparin 40 MG/0.4 ML Syringe SC (05:17)
[2021-08-01] MEDS: Sertraline 50 MG Tablet PO (05:17)
[2021-08-01] MEDS: guaiFENesin 600 MG Tablet PO ×2 (05:17→17:30)
[2021-08-01] MEDS: hydroCHLOROthiazide 12.5mg 25 MG PO (05:17)
[2021-08-01] MEDS: Meloxicam 7.5 MG Tablet PO (05:17)
[2021-08-01 05:18] VITALS: BP 165/97; PULSE 104
[2021-08-01] MEDS: Metoprolol Tartrate 50 MG Tablet PO ×2 (05:18→17:30)
[2021-08-01] MEDS: Polyethylene Glycol 3350 17 GM PACKET PO ×2 (05:21→17:30)
[2021-08-01 06:26] LABS: Bedside Glucose 158 mg/dL (70-110)
[2021-08-01] MEDS: metFORMIN HCl 500 MG Tablet PO (08:05)
[2021-08-01] MEDS: Oxybutynin 5 MG Tablet PO (08:05)
[2021-08-01] MEDS: Glucerna Shake 120 ML LIQUID PO ×3 (08:05→17:30)
[2021-08-01 10:00] VITALS: PULSE 80; RESP 18; O2SAT 97
[2021-08-01 13:05] VITALS: PULSE 96; RESP 18; O2SAT 95
[2021-08-01] MEDS: Ipratropium/Albuterol Sulfate 3 ML AMPUL.NEB INHALATION ×2 (13:05→19:25)
[2021-08-01 14:05] VITALS: BP 152/86; PULSE 100; RESP 10; TEMP 36.9; O2SAT 93
--- NOTE | 2021-08-01 14:16 | CASEMGMT ---
Social Work IDT met with patient and dtr for care plan meeting. Discussed patient's progress in PT/OT and nursing. ST to eval. Explained [employer] insurance with [employer] 08/06, EDC 08/09. Explained and provided insurance care plan. Discussed [place] - pt does not have the funds. Offered [place] - pt denied. Discussed nonskilled HHC - pt does not have the funds. Offered Medicaid - pt stated she just talked to her financial adviser and she does not qualify. Encouraged to complete the application to ensure she does not qualify for any program. Pt and dtr agreed. Provided [place] application for community resources. Dtr can still come in the morning and the evening outside work hours, but no one to assist during the day. Pt does not want a SNF, but may need to reconsider. Dtr did set up [facility]. JARVIS to order BSC and skilled HHC at [place]. SW to continue to follow. Evangelina Pacheco, PANEL MONITOR, STAFFING ANALYST
--- NOTE | 2021-08-01 16:40 | NURSING ---
Resident and daughter, Beba, notified of 2 residents testing postive for COVID.
[2021-08-01 17:30] VITALS: BP 127/88; PULSE 105
[2021-08-01 19:25] VITALS: PULSE 75; RESP 20
[2021-08-01] MEDS: Budesonide Respules 0.5 MG/2 ML AMPUL.NEB. INHALATION (19:25)
[2021-08-01] MEDS: Pramipexole Di-HCl 1 MG Tablet 1.5 MG PO (21:21)
[2021-08-02] VITALS (7 sets, daily range): BP systolic 139; BP diastolic 85; PULSE 68–98; RESP 12–20; TEMP 36.7; O2SAT 95–98
[2021-08-02] MEDS: guaiFENesin 600 MG Tablet PO ×2 (05:21→17:30)
[2021-08-02] MEDS: Senna/Docusate Sodium 1 Tablet PO ×2 (05:21→17:30)
[2021-08-02] MEDS: Meloxicam 7.5 MG Tablet PO (05:21)
[2021-08-02] MEDS: Polyethylene Glycol 3350 17 GM PACKET PO ×2 (05:22→17:30)
[2021-08-02] MEDS: Metoprolol Tartrate 50 MG Tablet PO ×2 (05:22→17:31)
[2021-08-02] MEDS: Sertraline 50 MG Tablet PO (05:22)
[2021-08-02] MEDS: hydroCHLOROthiazide 12.5mg 25 MG PO (05:22)
[2021-08-02] MEDS: Enoxaparin 40 MG/0.4 ML Syringe SC (05:23)
[2021-08-02 05:57] LABS: Absolute Lymphocyte Count 1.01 X10^3/uL (0.83-4.51); Absolute Neutrophil Count 4.2 X10^3/uL (2.0-7.7); Basophil# 0.04 X10^3/uL; Basophil% 0.6 % (0-1); Eosinophil# 0.22 X10^3/uL; Eosinophils% 3.4 % (0-5); Hematocrit 39.9 % (37-47); Hemoglobin 12.8 g/dL (12.0-15.0); Lymphocyte # 1.01 X10^3/ul (0.83-4.51); Lymphocyte % 15.8 % (19-41); Mean Corp Hgb Conc 32.1 g/dL (32-36); Mean Corpuscular Hgb 30.3 pg (27.0-32.0); Mean Corpuscular Volume 94.3 fL (81-99); Mean Platelet Vol. 9.2 fl (6.2-12.0); Monocyte# 0.94 X10^3/uL; Monocyte% 14.7 % (0-10); NRBC Flagged by Analyzer 0 % (0-5); Neutrophil # 4.17 X10^3/uL (2.7-7.7); Platelet Count 250 K/mm3 (150-450); RBC Distribution Width CV 13.2 % (11.6-14.6); RBC Distribution Width SD 45.7 fl (35.1-43.9); Red Blood Count 4.23 M/mm3 (4.2-5.4); White Blood Count 6.4 K/mm3 (4.4-11.0)
[2021-08-02 06:21] LABS: Bedside Glucose 141 mg/dL (70-110)
[2021-08-02 06:30] LABS: Anion Gap 5 (5-15); BUN 29 mg/dL (7-18); BUN/Creat Ratio 43.3 RATIO (10-20); Calcium,Total 9.3 mg/dL (8.5-10.1); Chloride 90 mmol/L (98-107); Creatinine, Serum 0.67 mg/dL (0.55-1.02); EST Glomerular Filtration Rate 92 mL/min (>60); Est Glom Filt Rate - Afr Amer 111 mL/min (>60); Estimated Creatinine Clearance 43.27 ml/min; Glucose 121 mg/dL (74-106); Potassium 3.5 mmol/L (3.5-5.1); Sodium Level 133 mmol/L (136-145)
[2021-08-02] MEDS: Ipratropium/Albuterol Sulfate 3 ML AMPUL.NEB INHALATION ×3 (07:02→19:05)
[2021-08-02] MEDS: Budesonide Respules 0.5 MG/2 ML AMPUL.NEB. INHALATION ×2 (07:02→19:05)
[2021-08-02] MEDS: Oxybutynin 5 MG Tablet PO (08:35)
[2021-08-02] MEDS: metFORMIN HCl 500 MG Tablet PO (08:35)
[2021-08-02] MEDS: Glucerna Shake 120 ML LIQUID PO ×2 (08:37→17:34)
[2021-08-02] MEDS: Tuberculin,Purif.prot.deriv. 50 TU/ML Vial 0.1 ML ID (11:49)
--- NOTE | 2021-08-02 13:44 | ST ---
Voicemail left with pt's daughter Beba regarding ST evaluation results (SLUMS ) and C2 TACTICAL ANALYSIS TECHNICIAN recommendation for pt to have 29/12 supervision at discharge. Pt's dtr Rin returned this C2 TACTICAL ANALYSIS TECHNICIAN's call with questions. Repeated information regarding ST evaluation results and recommendations. Described pt's awareness that she isn't thinking as quickly when completing her online games and how my daughter is concerned that I will leave the stove on. Daughter asked if she has considered assisted living with her mother to which she replied only recently. Pt's daughter advised to call this C2 TACTICAL ANALYSIS TECHNICIAN anytime with questions and that this C2 TACTICAL ANALYSIS TECHNICIAN will provide update on pt with any changes.
--- NOTE | 2021-08-02 13:54 | NURSING ---
BRYAN FROM OFFICE CALLED AND ASKED IF THE INJECTION THAT PT RECEIVED IN RIGHT KNEE HELPED AND IF IT DID WOULD COME AND DO THE OTHER INJECTION IN THE LEFT KNEE DUE TO PT COMPLAINING OF PAIN. IF IT DID NOT HELP THEN PT WAS TO FOLLOW UP WITH AFTER DISCHARGE. THIS NURSE ASKED PT IF THE INJECTION THAT SHE RECEIVED IN RIGHT KNEE HELPED ANY AND WANTED TO KNOW . PT STATED IT DID AT FIRST AND NOW PAIN COMES AND GOES. THERAPY IN ROOM AND STATED PT DID WALK FARTHER TODAY. PT STATED SHE WOULD LIKE THE OTHER INJECTION FOR HER LEFT AND FEELS IT WOULD HELP HER TO WALK MORE AND FARTHER. THIS NURSE CALLED BRYAN BACK AND STATED PT FELT IT DID HELP AND WOULD LIKE AN INJECTION IN THE LEFT. BRYAN STATED SHE WOULD LET DR. MTICHELL KNOW AND HE WOULD PROBABLY BE IN THURSDAY OR THURSDAY TO DO THE INJECTION. REPORTED TO PT AND RN.
[2021-08-02] MEDS: traMADol 50 MG Tablet PO (21:00)
[2021-08-02] MEDS: Pramipexole Di-HCl 1 MG Tablet 1.5 MG PO (21:03)
[2021-08-03] VITALS (7 sets, daily range): BP systolic 109–149; BP diastolic 67–71; PULSE 83–105; RESP 18; TEMP 37.1; O2SAT 93–98
[2021-08-03] MEDS: Enoxaparin 40 MG/0.4 ML Syringe SC (06:05)
[2021-08-03] MEDS: guaiFENesin 600 MG Tablet PO ×2 (06:06→18:00)
[2021-08-03] MEDS: Senna/Docusate Sodium 1 Tablet PO ×2 (06:06→18:00)
[2021-08-03] MEDS: hydroCHLOROthiazide 12.5mg 25 MG PO (06:06)
[2021-08-03] MEDS: Sertraline 50 MG Tablet PO (06:06)
[2021-08-03] MEDS: Metoprolol Tartrate 50 MG Tablet PO ×2 (06:08→17:59)
[2021-08-03] MEDS: Polyethylene Glycol 3350 17 GM PACKET PO (06:09)
[2021-08-03] MEDS: Meloxicam 7.5 MG Tablet PO (06:09)
[2021-08-03 07:21] LABS: Bedside Glucose 112 mg/dL (70-110)
[2021-08-03] MEDS: metFORMIN HCl 500 MG Tablet PO (07:47)
[2021-08-03] MEDS: Oxybutynin 5 MG Tablet PO (07:48)
[2021-08-03] MEDS: traMADol 50 MG Tablet PO ×2 (07:51→20:48)
[2021-08-03] MEDS: Ipratropium/Albuterol Sulfate 3 ML AMPUL.NEB INHALATION ×2 (13:20→19:29)
[2021-08-03] MEDS: Budesonide Respules 0.5 MG/2 ML AMPUL.NEB. INHALATION (19:29)
[2021-08-03] MEDS: Calcium Carbonate 500 MG Tablet PO (20:45)
[2021-08-03] MEDS: Pramipexole Di-HCl 1 MG Tablet 1.5 MG PO (20:49)
[2021-08-04 06:21] LABS: Bedside Glucose 131 mg/dL (70-110)
[2021-08-04] MEDS: hydroCHLOROthiazide 12.5mg 25 MG PO (06:26)
[2021-08-04] MEDS: Enoxaparin 40 MG/0.4 ML Syringe SC (06:26)
[2021-08-04 06:27] VITALS: BP 156/74; PULSE 68
[2021-08-04] MEDS: Polyethylene Glycol 3350 17 GM PACKET PO ×2 (06:27→17:40)
[2021-08-04] MEDS: Senna/Docusate Sodium 1 Tablet PO ×2 (06:27→17:40)
[2021-08-04] MEDS: guaiFENesin 600 MG Tablet PO ×2 (06:27→17:40)
[2021-08-04] MEDS: Metoprolol Tartrate 50 MG Tablet PO ×2 (06:27→17:39)
[2021-08-04] MEDS: Sertraline 50 MG Tablet PO (06:27)
[2021-08-04] MEDS: Meloxicam 7.5 MG Tablet PO (08:13)
[2021-08-04] MEDS: Oxybutynin 5 MG Tablet PO (08:14)
[2021-08-04] MEDS: metFORMIN HCl 500 MG Tablet PO (08:14)
[2021-08-04 08:45] VITALS: PULSE 70; RESP 18; O2SAT 96
[2021-08-04] MEDS: Budesonide Respules 0.5 MG/2 ML AMPUL.NEB. INHALATION (08:45)
[2021-08-04] MEDS: Ipratropium/Albuterol Sulfate 3 ML AMPUL.NEB INHALATION (08:45)
[2021-08-04 10:05] VITALS: PULSE 68; RESP 18; O2SAT 97
[2021-08-04 14:05] VITALS: BP 154/68; PULSE 104; RESP 20; TEMP 36.7; O2SAT 90
[2021-08-04 17:39] VITALS: BP 154/68; PULSE 104
[2021-08-04] MEDS: Pramipexole Di-HCl 1 MG Tablet 1.5 MG PO (20:35)
[2021-08-05] MEDS: Enoxaparin 40 MG/0.4 ML Syringe SC (05:14)
[2021-08-05] MEDS: Senna/Docusate Sodium 1 Tablet PO ×2 (05:16→16:48)
[2021-08-05] MEDS: guaiFENesin 600 MG Tablet PO ×2 (05:16→16:47)
[2021-08-05] MEDS: Sertraline 50 MG Tablet PO (05:16)
[2021-08-05 05:17] VITALS: BP 140/69; PULSE 74
[2021-08-05] MEDS: Polyethylene Glycol 3350 17 GM PACKET PO ×2 (05:17→16:47)
[2021-08-05] MEDS: hydroCHLOROthiazide 12.5mg 25 MG PO (05:17)
[2021-08-05] MEDS: Metoprolol Tartrate 50 MG Tablet PO ×2 (05:17→16:47)
[2021-08-05 06:36] LABS: Bedside Glucose 118 mg/dL (70-110)
[2021-08-05 07:30] VITALS: O2SAT 90
[2021-08-05] MEDS: Ipratropium/Albuterol Sulfate 3 ML AMPUL.NEB INHALATION ×3 (07:30→19:05)
[2021-08-05] MEDS: Budesonide Respules 0.5 MG/2 ML AMPUL.NEB. INHALATION ×2 (07:30→19:05)
[2021-08-05] MEDS: metFORMIN HCl 500 MG Tablet PO (08:12)
[2021-08-05] MEDS: Meloxicam 7.5 MG Tablet PO (08:12)
[2021-08-05] MEDS: Oxybutynin 5 MG Tablet PO (08:12)
--- NOTE | 2021-08-05 09:36 | RAD_ITS ---
STUDY: X-RAY - LEFT KNEE REASON FOR EXAM: Female, 75 years old. BILATERAL KNEE PAIN, NKI, CRACKING AND LOCKING UP REGULARLY TECHNIQUE: 4 view(s) of the knee. COMPARISON: July 25, 2021 FINDINGS: Normal visualized distal femur. Normal visualized proximal tibia and fibula. Normal proximal tibiofibular articulation. There is no demonstrated fracture. There is severe degenerative arthrosis of the medial femorotibial compartment with severe joint space narrowing. There is moderate degenerative arthrosis of the lateral femorotibial compartment with moderate joint space narrowing. There is severe degenerative arthrosis of the patellofemoral articulation. There is a soft tissue prominence in the suprapatellar region suggesting a small volume joint effusion. The soft tissue structures are unremarkable. RAD/Knee 4 or More Views IMPRESSION: Degenerative arthrosis. Electronically Signed: Eddy Barrera MD at 14:46 EST ,
[2021-08-05 13:20] VITALS: PULSE 100; RESP 20; O2SAT 93
[2021-08-05 14:41] VITALS: BP 110/70; PULSE 99; RESP 18; TEMP 37.1; O2SAT 96
[2021-08-05 16:47] VITALS: PULSE 99
[2021-08-05 19:06] VITALS: PULSE 98; RESP 18
[2021-08-05] MEDS: Pramipexole Di-HCl 1 MG Tablet 1.5 MG PO (23:44)
[2021-08-06] VITALS (8 sets, daily range): BP systolic 114–119; BP diastolic 72–80; PULSE 81–110; RESP 17–20; TEMP 36.7; O2SAT 92–98
[2021-08-06] MEDS: Polyethylene Glycol 3350 17 GM PACKET PO ×2 (05:29→17:04)
[2021-08-06] MEDS: Enoxaparin 40 MG/0.4 ML Syringe SC (05:29)
[2021-08-06] MEDS: Metoprolol Tartrate 50 MG Tablet PO ×2 (05:30→17:03)
[2021-08-06] MEDS: hydroCHLOROthiazide 12.5mg 25 MG PO (05:31)
[2021-08-06] MEDS: guaiFENesin 600 MG Tablet PO ×2 (05:31→17:04)
[2021-08-06] MEDS: Senna/Docusate Sodium 1 Tablet PO ×2 (05:31→17:04)
[2021-08-06] MEDS: Sertraline 50 MG Tablet PO (05:32)
[2021-08-06 06:21] LABS: Bedside Glucose 138 mg/dL (70-110)
[2021-08-06] MEDS: Ipratropium/Albuterol Sulfate 3 ML AMPUL.NEB INHALATION ×3 (07:05→19:40)
[2021-08-06] MEDS: Oxybutynin 5 MG Tablet PO (08:40)
[2021-08-06] MEDS: metFORMIN HCl 500 MG Tablet PO (08:40)
[2021-08-06] MEDS: Meloxicam 7.5 MG Tablet PO (08:41)
--- NOTE | 2021-08-06 14:49 | NURSING ---
Medications available for injection to left knee when Dr. Velez is available to perform procedure. Patient is aware.
--- NOTE | 2021-08-06 18:08 | PCM.PN.ORT ---
Subjective Subjective Patient sitting at bedside with her family member she is comfortable. Requesting left knee injection she responded well to her right knee injection. Objective Data Objective Data Vital Signs: Vital Signs Temp Pulse Resp BP Pulse Ox 98.1 F 97 18 114/72 97 08/06/21 13:22 08/06/21 17:03 08/06/21 13:22 08/06/21 17:03 08/06/21 13:22 Oxygen Flow Rate (L/min) 2 Oxygen Delivery Method Nasal Cannula Weight: 209 lb 12.8 oz Body Mass Index (BMI) 36.3 Intake & Output: Intake and Output for Last 24 Hours 08/04/21 08/05/21 08/06/21 23:59 23:59 23:59 Intake Total 720 / 720 720 / 720 480 / 480 Output Total 550 / 550 Balance 720 / 720 170 / 170 480 / 480 Lab / Micro Data Result Diagrams: 08/02/21 05:19 08/02/21 05:19 Labs: Laboratory Results - last 24 hr 08/06/21 06:13: POC Glucose 138 H Micro: Microbiology 08/01/21 12:13 Nasal Secretion SARS-CoV-2 Antigen (Rapid) - Final 07/28/21 23:25 Urine Catheter - Catheter Urine Culture - Final Culture exhibits no growth. Physical Exam Const no apparent distress General Appearance: cooperative Extremity Extremity Narrative: Left knee without joint effusion erythema or ecchymosis no collateral cruciate instability no pain in the mid arc of range Assessment & Plan Assessment/Plan (1) Left knee DJD: QUALIFIERS: Osteoarthritis type: primary Qualified Code(s): M17.12 - Unilateral primary osteoarthritis, left knee PLAN: Left knee x-ray reviewed demonstrates moderate to severe arthritic change patient requesting steroid injection as she has done well in the with the right. Under sterile technique 40 mg Depo-Medrol with 4 cc of 0.25% bupivacaine plain was injected patient tolerated well. She may have repeat injections in 3 months if she likes.
[2021-08-06] MEDS: Bupivacaine 0.25% 30 ML Vial IM (18:14)
[2021-08-06] MEDS: MethylPREDNISolone Acetate 40 MG/ML Vial IM (18:14)
[2021-08-06] MEDS: Gabapentin 100 MG Capsule PO (18:19)
[2021-08-06] MEDS: oxyCODONE 5 MG Tablet PO (22:10)
[2021-08-06] MEDS: Pramipexole Di-HCl 1 MG Tablet 1.5 MG PO (22:11)
[2021-08-06] MEDS: Acetaminophen 500 MG Tablet 1000 MG PO (22:14)
[2021-08-07] MEDS: Sertraline 50 MG Tablet PO (05:55)
[2021-08-07] MEDS: hydroCHLOROthiazide 12.5mg 25 MG PO (05:55)
[2021-08-07] MEDS: Polyethylene Glycol 3350 17 GM PACKET PO ×2 (05:55→17:32)
[2021-08-07] MEDS: Enoxaparin 40 MG/0.4 ML Syringe SC (05:55)
[2021-08-07] MEDS: Senna/Docusate Sodium 1 Tablet PO ×2 (05:55→17:33)
[2021-08-07] MEDS: guaiFENesin 600 MG Tablet PO ×2 (05:55→17:33)
[2021-08-07 05:56] VITALS: BP 168/75; PULSE 83
[2021-08-07] MEDS: Metoprolol Tartrate 50 MG Tablet PO ×2 (05:56→17:31)
[2021-08-07 06:31] LABS: Bedside Glucose 140 mg/dL (70-110)
[2021-08-07 06:57] VITALS: PULSE 72; RESP 18; O2SAT 93
[2021-08-07] MEDS: Budesonide Respules 0.5 MG/2 ML AMPUL.NEB. INHALATION ×2 (06:57→18:27)
[2021-08-07] MEDS: Ipratropium/Albuterol Sulfate 3 ML AMPUL.NEB INHALATION ×3 (06:57→18:27)
[2021-08-07] MEDS: Gabapentin 100 MG Capsule PO ×3 (08:56→17:32)
[2021-08-07] MEDS: Meloxicam 7.5 MG Tablet PO (08:56)
[2021-08-07] MEDS: metFORMIN HCl 500 MG Tablet PO (08:56)
[2021-08-07] MEDS: Oxybutynin 5 MG Tablet PO (08:56)
[2021-08-07] MEDS: Acetaminophen 500 MG Tablet 1000 MG PO (10:53)
[2021-08-07] MEDS: oxyCODONE 5 MG Tablet PO (10:53)
[2021-08-07 12:50] VITALS: PULSE 97; PULSE 98; RESP 17; RESP 19; O2SAT 97
--- NOTE | 2021-08-07 12:53 | MDS.RN ---
Information for the mds was obtained from review of the clinical record, interview of resident, staff, and direct observation of resident's care.
--- NOTE | 2021-08-07 13:17 | CASEMGMT ---
Social Work Spoke with dtr to f/u on DC plans as insurance update is 08/08. Dtr is off work from 08/09-08/12 and would like pt to DC home 08/09 so she can assist. IDT agreeable. Dtr planning on contacting nonskilled [facility] agencies - she has not done so yet. [place] [facility] [place] to [facility]. Requesting [facility]. Referral made for PT/OT/ST/SN. Dtr to transport at 10 am. Plan: DC home alone 08/09, [facility] PT/OT/ST/SN, [facility] Evangelina Pacheco, ANIMAL SCIENTIST TOOLING SUPERVISOR
[2021-08-07 14:06] VITALS: BP 116/63; PULSE 93; RESP 20; TEMP 37; O2SAT 96
[2021-08-07 17:31] VITALS: BP 123/76; PULSE 94
[2021-08-07 18:27] VITALS: PULSE 72; RESP 16
--- NOTE | 2021-08-07 19:31 | PCM.DC.SUM ---
Providers Date of Admission: 07/25/21 Primary Care Physician: Dr. Roderick Ryder MD Reason For Visit: DEBILITY Diagnosis Discharge Diagnosis (1) Left knee DJD: Status: Acute Code(s): M17.12 - Unilateral primary osteoarthritis, left knee Qualifiers: Osteoarthritis type: primary Qualified Code(s): M17.12 - Unilateral primary osteoarthritis, left knee Medications at Discharge Home Medications albuterol sulfate 90 mcg/actuation aerosol inhaler 2 puff INHALATION Q4H PRN g 10/14/18 meloxicam 7.5 mg tablet 7.5 mg PO DAILY 10/14/18 metformin 500 mg tablet 500 mg PO DAILY tab 10/14/18 ropinirole 0.5 mg tablet 1.5 mg PO QHS tab 10/14/18 Oxygen #1 ea 10/27/18 budesonide 1 dose INHALATION BID 12/22/18 ipratropium-albuterol 1 dose INHALATION 4X/DAY 12/22/18 hydrochlorothiazide 25 mg PO DAILY 07/25/21 metoprolol tartrate 50 mg PO DAILY 07/25/21 oxybutynin chloride 5 mg PO DAILY 07/25/21 sertraline 50 mg PO DAILY 07/25/21 acetaminophen 1,000 mg PO Q6H PRN PRN #0 tab 08/07/21 gabapentin 100 mg PO TIDCM 30 Days #90 cap 08/07/21 oxycodone 5 mg PO Q4H PRN PRN 7 Days #42 tab 08/07/21 sennosides-docusate sodium [Stool Softener-Stimulant Laxat] 1 tab PO BID 30 Days #60 tab 08/07/21 Hospital Course Operations None Procedures - (Right knee arthrocentesis.) Summary of Care Provided Minutes Spent on Discharge: 35 Hospital Course: 75 year old female with below past medical history hospitalized for weakness, complicated by osteoarthritis right knee, urinary tract infection, acute on chronic diastolic congestive heart failure, admitted to TCU with debility, here for rehabilitation, strengthening, prior to discharge home alone. Gabapentin 100mg tid added for neuropathy pain, resident found helpful. Discharge home alone 08/09/2021, [facility] PT/OT/ST/SN, Bedside commode. Physical Exam Const alert and oriented x3 General Appearance: cooperative HEENT normocephalic Eyes PERRL and EOMs intact bilaterally Neck supple, no JVD and no carotid bruits Resp normal respiratory effort, normal air movement and clear to auscultation bilaterally Cardio regular rate and regular rhythm GI normal to inspection, nondistended, normoactive bowel sounds, non-tender and non-distended Extremity normal capillary refill General Extremity: Negative for edema Skin no rashes or lesions noted General Skin Exam: no breakdown Psych affect normal Appearance: appropriate Weight / BMI Weight Weight: 95.164 kg Body Mass Index (BMI) 36.3 ABG / Lab / Microbiology Data Result Diagrams: 08/02/21 05:19 08/02/21 05:19 Laboratory: Laboratory Results - last 24 hr 08/07/21 06:21: POC Glucose 140 H Microbiology: Microbiology 08/01/21 12:13 Nasal Secretion SARS-CoV-2 Antigen (Rapid) - Final 07/28/21 23:25 Urine Catheter - Catheter Urine Culture - Final Culture exhibits no growth. D/C Instructions Discharge Diet: No restrictions Discharge Activity: Return to Normal Activity, May Shower and Use Walker Weight Bearing Status: Weight bearing as tolerated Call your doctor if you observe: Fever of 101 or Higher, Inability to urinate, Inability to have a bowel movement, Using more than 1 pad per hour, Shortness of breath, Dizziness, Swelling in the ankles, Chest pain and Uncontrolled pain Additional Instructions: Discharge home alone 08/09/2021, [facility] PT/OT/ST/SN, Bedside commode. Meaningful Use Info Meaningful Use Diagnoses (Choose all that apply): None applicable Discharge Plan Admission Admit Date/Time: 07/25/21 19:15 Primary Reason for Your Visit: Debility. Attending Provider: Gustavo Justice Chi Primary Care Provider: Roderick Ryder Instructions Additional Instructions / Restrictions: Discharge home alone 08/09/2021, [facility] PT/OT/ST/SN, Bedside commode. Discharge Orders/Prescriptions Prescriptions: New acetaminophen 500 mg Tablet 1,000 mg PO Q6H PRN PRN (Reason: Pain Score 1-3) Qty: 0 RF: 0 sennosides-docusate sodium [Stool Softener-Stimulant Laxat] 8.6-50 mg Tablet 1 tab PO BID 30 Days Qty: 60 RF: 0 gabapentin 100 mg Capsule 100 mg PO TIDCM 30 Days Qty: 90 RF: 0 oxycodone 5 mg Tablet 5 mg PO Q4H PRN PRN (Reason: Pain Score 6-10) 7 Days Qty: 42 RF: 0 Continued meloxicam 7.5 mg tablet 7.5 mg PO DAILY RF: 0 metformin 500 mg tablet 500 mg PO DAILY RF: 0 albuterol sulfate 90 mcg/actuation HFA aerosol inhaler 2 puff INHALATION Q4H PRN (Reason: Sob &/Or Wheezing) RF: 0 ropinirole 0.5 mg tablet 1.5 mg PO QHS RF: 0 ipratropium-albuterol 0.5-3MG/3 solution for nebulization 1 dose inhalation 4X/DAY RF: 0 budesonide 0.5 MG/2ML suspension for nebulization 1 dose inhalation BID RF: 0 metoprolol tartrate 50 mg Tablet 50 mg PO DAILY RF: 0 oxybutynin chloride 5 mg Tablet 5 mg PO DAILY RF: 0 sertraline 50 mg Tablet 50 mg PO DAILY RF: 0 hydrochlorothiazide 12.5 mg capsule 25 mg PO DAILY RF: 0 Discontinued baclofen 10 mg tablet 10 mg PO TID RF: 0 Hold Instructions: until reevaluated at TCU in a few days No Action (DME) Oxygen 3 liters NC Qty: 1 RF: 0 Referrals / Follow Up: Roderick Ryder MD [Primary Care Provider] - Disposition Disposition (needs filled in before D/C Order can be placed): Home Health Service
[2021-08-07] MEDS: Pramipexole Di-HCl 1 MG Tablet 1.5 MG PO (21:08)
[2021-08-08] VITALS (7 sets, daily range): BP systolic 114–163; BP diastolic 69–90; PULSE 69–91; RESP 16–18; TEMP 36.3; O2SAT 95–98
[2021-08-08] MEDS: Senna/Docusate Sodium 1 Tablet PO ×2 (05:26→17:57)
[2021-08-08] MEDS: Enoxaparin 40 MG/0.4 ML Syringe SC (05:26)
[2021-08-08] MEDS: guaiFENesin 600 MG Tablet PO ×2 (05:26→17:57)
[2021-08-08] MEDS: hydroCHLOROthiazide 12.5mg 25 MG PO (05:27)
[2021-08-08] MEDS: Metoprolol Tartrate 50 MG Tablet PO ×2 (05:27→17:56)
[2021-08-08] MEDS: Sertraline 50 MG Tablet PO (05:27)
[2021-08-08] MEDS: Polyethylene Glycol 3350 17 GM PACKET PO ×2 (05:27→17:57)
[2021-08-08] MEDS: Acetaminophen 500 MG Tablet 1000 MG PO ×2 (05:32→21:43)
[2021-08-08 06:21] LABS: Bedside Glucose 131 mg/dL (74-106)
[2021-08-08] MEDS: Ipratropium/Albuterol Sulfate 3 ML AMPUL.NEB INHALATION ×3 (07:23→20:53)
[2021-08-08] MEDS: Oxybutynin 5 MG Tablet PO (08:12)
[2021-08-08] MEDS: metFORMIN HCl 500 MG Tablet PO (08:12)
[2021-08-08] MEDS: Gabapentin 100 MG Capsule PO ×3 (08:12→17:56)
[2021-08-08] MEDS: Meloxicam 7.5 MG Tablet PO (08:12)
--- NOTE | 2021-08-08 16:29 | NURSING ---
Resident and Daughter, Beba, notified of a resident on the unit testing positive for COVID.
[2021-08-08] MEDS: Budesonide Respules 0.5 MG/2 ML AMPUL.NEB. INHALATION (20:53)
[2021-08-08] MEDS: Pramipexole Di-HCl 1 MG Tablet 1.5 MG PO (21:42)
[2021-08-09 04:53] VITALS: BP 120/84; PULSE 74
[2021-08-09] MEDS: Metoprolol Tartrate 50 MG Tablet PO (04:53)
[2021-08-09] MEDS: guaiFENesin 600 MG Tablet PO (04:54)
[2021-08-09] MEDS: Sertraline 50 MG Tablet PO (04:54)
[2021-08-09] MEDS: Senna/Docusate Sodium 1 Tablet PO (04:54)
[2021-08-09] MEDS: hydroCHLOROthiazide 12.5mg 25 MG PO (04:54)
[2021-08-09] MEDS: Polyethylene Glycol 3350 17 GM PACKET PO (04:55)
[2021-08-09] MEDS: Enoxaparin 40 MG/0.4 ML Syringe SC (04:55)
[2021-08-09 05:38] LABS: Absolute Lymphocyte Count 0.96 X10^3/uL (0.83-4.51); Absolute Neutrophil Count 3.3 X10^3/uL (2.0-7.7); Basophil# 0.03 X10^3/uL; Basophil% 0.6 % (0-1); Eosinophils% 3.9 % (0-5); Hematocrit 36.9 % (37-47); Hemoglobin 11.8 g/dL (12.0-15.0); Lymphocyte # 0.96 X10^3/ul (0.83-4.51); Lymphocyte % 18.7 % (19-41); Mean Corpuscular Hgb 31.3 pg (27.0-32.0); Mean Corpuscular Volume 97.9 fL (81-99); Mean Platelet Vol. 8.8 fl (6.2-12.0); Monocyte# 0.65 X10^3/uL; Monocyte% 12.7 % (0-10); NRBC Flagged by Analyzer 0 % (0-5); Neutrophil # 3.26 X10^3/uL (2.7-7.7); Neutrophil % 63.5 % (47-70); Platelet Count 264 K/mm3 (150-450); RBC Distribution Width CV 12.8 % (11.6-14.6); RBC Distribution Width SD 45.7 fl (35.1-43.9); Red Blood Count 3.77 M/mm3 (4.2-5.4); White Blood Count 5.1 K/mm3 (4.4-11.0)
[2021-08-09 06:08] LABS: Anion Gap 2 (5-15); BUN 26 mg/dL (7-18); BUN/Creat Ratio 38.3 RATIO (10-20); Calcium,Total 8.9 mg/dL (8.5-10.1); Chloride 94 mmol/L (98-107); Creatinine, Serum 0.68 mg/dL (0.55-1.02); EST Glomerular Filtration Rate 90 mL/min (>60); Est Glom Filt Rate - Afr Amer 109 mL/min (>60); Estimated Creatinine Clearance 43.27 ml/min; Glucose 131 mg/dL (74-106); Sodium Level 136 mmol/L (136-145)
[2021-08-09 06:31] LABS: Bedside Glucose 120 mg/dL (74-106)
[2021-08-09 07:03] VITALS: PULSE 89; RESP 19
[2021-08-09] MEDS: Ipratropium/Albuterol Sulfate 3 ML AMPUL.NEB INHALATION (07:05)
[2021-08-09] MEDS: Budesonide Respules 0.5 MG/2 ML AMPUL.NEB. INHALATION (07:08)
[2021-08-09 08:30] VITALS: PULSE 83; RESP 18; O2SAT 94
[2021-08-09 09:19] VITALS: BP 99/60; PULSE 83; RESP 18; TEMP 36.9; O2SAT 94
[2021-08-09] MEDS: Gabapentin 100 MG Capsule PO (09:59)
[2021-08-09] MEDS: metFORMIN HCl 500 MG Tablet PO (10:00)
[2021-08-09] MEDS: Oxybutynin 5 MG Tablet PO (10:00)
[2021-08-09] MEDS: Meloxicam 7.5 MG Tablet PO (10:00)
[2021-08-09] MEDS: Acetaminophen 500 MG Tablet 1000 MG PO (10:07)
== END 2021-08-09 10:30 | disposition home health service (06) | DRG 293 ==
PROVIDERS: Admitting Provider Family Medicine Geriatric Medicine; PCP Family Medicine; Visit Provider Family Medicine Geriatric Medicine
DX: I11.0 Hypertensive heart disease with heart failure (principal); E11.40 Type 2 diabetes mellitus with diabetic neuropathy, unspecified; I50.32 Chronic diastolic (congestive) heart failure; J44.9 Chronic obstructive pulmonary disease, unspecified; E66.01 Morbid (severe) obesity due to excess calories; G25.81 Restless legs syndrome; M62.838 Other muscle spasm; M17.0 Bilateral primary osteoarthritis of knee; K21.9 Gastro-esophageal reflux disease without esophagitis; M79.7 Fibromyalgia; G47.33 Obstructive sleep apnea (adult) (pediatric); M51.36 Other intervertebral disc degeneration, lumbar region; F32.A Depression, unspecified; M62.81 Muscle weakness (generalized); N32.81 Overactive bladder; Z87.891 Personal history of nicotine dependence; Z68.36 Body mass index [BMI] 36.0-36.9, adult; Z79.899 Other long term (current) drug therapy; Z79.84 Long term (current) use of oral hypoglycemic drugs
CPT/HCPCS: 0064A; 36415; 73564; 80048; 81001; 82962; 85025; 87086; 87426; 91301; 92507; 92523; 94640; 97110; 97116; 97162; 97166; 97530; 97535; 97802; 99251; G0463

== ENCOUNTER 2021-08-30 12:06 | Emergency (ER) | payer MEDICARE, SELFPAY ==
[2021-08-30 12:07] VITALS: BP 158/71; PULSE 64; RESP 17; TEMP 36; O2SAT 100; BMI 38.9
--- NOTE | 2021-08-30 13:03 | ED.VIS.LOWEX ---
HPI History of Present Illness HPI Narrative: Patient presents with a laceration to her left lower leg that occurred last night. Patient states she was sitting in her recliner and went to get up. Patient states the leg of her walker cut her left lower leg. Patient put a dressing on it last night and went to bed. Patient went to urgent care today and was referred to the emergency department. Patient denies any paresthesias or weakness. Patient denies any fevers or chills. Patient does not remember her last tetanus. Patient denies any other injuries. Chief Complaint: Laceration Informant: patient Occured/Mechanism Mechanism/Context: Yes injury Onset/Context/Timing Onset: Hours (13 hours prior to arrival) Context: Sudden Onset Timing: Continuous Quality of Pain: Burning Location: Left lower leg Worsened by: Nothing Relieved by: Nothing Associated Symptoms Associated Symptoms: Negative for Parasthesia, Weakness and Loss of Funtion Narrative Tetanus Immunization: Unknown [facility] Medical History (Updated 08/30/21 @ 13:[address] Gene Rodriguez, DO) COPD (chronic obstructive pulmonary disease) Debility Degenerative disc disease, lumbar Depression Edema of both lower extremities Essential hypertension Fibromyalgia Generalized muscle weakness GERD (gastroesophageal reflux disease) Morbid obesity with BMI of 40.0-44.9, adult Muscle spasm MICHEL (obstructive sleep apnea) Osteoarthritis Right knee pain RLS (restless legs syndrome) Type 2 diabetes mellitus without complication Home Medications albuterol sulfate 90 mcg/actuation aerosol inhaler 2 puff INHALATION Q4H PRN g 10/14/18 [History Last Taken Unknown] meloxicam 7.5 mg tablet 7.5 mg PO DAILY 10/14/18 [History Last Taken Unknown] metformin 500 mg tablet 500 mg PO DAILY tab 10/14/18 [History Last Taken Unknown] ropinirole 0.5 mg tablet 1.5 mg PO QHS tab 10/14/18 [History Last Taken Unknown] Oxygen #1 ea 10/27/18 [History Last Taken Unknown] budesonide 1 dose INHALATION BID 12/22/18 [History Last Taken Unknown] ipratropium-albuterol 1 dose INHALATION 4X/DAY 12/22/18 [History Last Taken Unknown] hydrochlorothiazide 25 mg PO DAILY 07/25/21 [History Last Taken Unknown] metoprolol tartrate 50 mg PO DAILY 07/25/21 [History Last Taken Unknown] oxybutynin chloride 5 mg PO DAILY 07/25/21 [History Last Taken Unknown] sertraline 50 mg PO DAILY 07/25/21 [History Last Taken Unknown] acetaminophen 1,000 mg PO Q6H PRN PRN #0 tab 08/07/21 [Rx Last Taken Unknown] gabapentin 100 mg PO TIDCM 30 Days #90 cap 08/07/21 [Rx Last Taken Unknown] oxycodone 5 mg PO Q4H PRN PRN 7 Days #42 tab 08/07/21 [Rx Last Taken Unknown] sennosides-docusate sodium [Stool Softener-Stimulant Laxat] 1 tab PO BID 30 Days #60 tab 08/07/21 [Rx Last Taken Unknown] cephalexin 500 mg PO Q6 #40 capsule 08/30/21 [Rx Last Taken Unknown] Allergy/AdvReac Type Severity Reaction Status Date / Time lisinopril AdvReac Intermediate cough Verified 08/30/21 12:07 pregabalin [From Lyrica] AdvReac Swelling Verified 08/30/21 12:07 Family History Mother Cancer lymphoma Father COPD (chronic obstructive pulmonary disease) Cancer bone Son Heart disease ischemic heart disease Surgical History History of appendectomy History of hysterectomy History of tonsillectomy Social History household members: none Smoking Status: Former smoker how long ago did patient quit smokin.5 years ago alcohol intake: current alcohol intake frequency: holidays/special occasions only substance use type: does not use caffeine: Yes Type: coffee Number of servings: 1 ROS ROS ED Constitutional Constitutional ED: Denies chills or fever(s) Eyes Eyes: Denies blurry vision or change in vision ENT ENT ED: Denies rhinorrhea or sore throat Cardiovascular Cardiovascular: Denies chest pain or palpitations Respiratory/Chest Respiratory/Chest: Denies cough or dyspnea Gastrointestinal Gastrointestinal: Denies nausea or vomiting Genitourinary Genitourinary ED: Denies dysuria or hematuria Musculoskeletal Musculoskeletal: Denies back pain or neck pain Integumentary Denies abscess or rash Neurologic Neurologic: Denies headache(s) or weakness Allergic/Immunologic Allergic/Immunologic ED: Denies mouth swelling or urticaria EXAM Physical Exam Const Vital Signs: 08/30/21 12:07 Temperature 96.8 F L Temperature Source Temporal Pulse Rate 64 Respiratory Rate 17 Blood Pressure 158/71 H Blood Pressure Mean 100 Pulse Ox 100 Oxygen Delivery Method Room Air Positive well nourished and well developed General Appearance ED: well developed and NAD HEENT Reports moist mucous membranes Neck full ROM and supple Extremity full ROM General Extremety ED: Negative for edema General Extremity: Negative for edema Neuro oriented x3, CN's II-XII intact bilaterally, moves all extremities and no sensory deficits noted Sensorium / Orientation: alert Motor Exam: strength 5/5 throughout Psych mental status grossly normal Skin Skin Narrative: There is a 5 cm full-thickness linear laceration over the posterior aspect of the left lower leg. There is no active bleeding. There is mild to moderate gapping of the wound margins. There are no foreign bodies noted. There appears to be some granulation tissue starting in the wound. Pedal pulses are equal bilaterally. Posterior tibial pulses are equal bilateral. Sensation was intact to light touch in the lower extremities bilaterally. Strength is 5/5 bilaterally in the lower extremities. MDM MDM MDM Narrative Medical decision making narrative: Patient was given a tetanus booster here. Patient was advised that the wound has been open too long for suture repair. Adaptic gauze dressing was applied to the wound. The wound was dressed. Patient was given a dose of Keflex here. Patient was given a prescription for Keflex. Patient was instructed to follow-up with her primary care physician in 5 to 7 days. Patient understood and was agreeable with the plan. All questions were answered. Discharge Plan Triage Chief Complaint: Laceration ED Provider: Gene Rodriguez Dx/Rx/DC Orders Clinical Impression: Laceration of left lower leg Instructions: ED Laceration, Old: Not Sutured Prescriptions: New cephalexin [cephalexin] 500 MG capsule 500 mg PO Q6 Qty: 40 RF: 0 No Action (DME) Oxygen 3 liters NC Qty: 1 RF: 0 meloxicam 7.5 mg tablet 7.5 mg PO DAILY RF: 0 metformin 500 mg tablet 500 mg PO DAILY RF: 0 albuterol sulfate 90 mcg/actuation HFA aerosol inhaler 2 puff INHALATION Q4H PRN (Reason: Sob &/Or Wheezing) RF: 0 ropinirole 0.5 mg tablet 1.5 mg PO QHS RF: 0 ipratropium-albuterol 0.5-3MG/3 solution for nebulization 1 dose inhalation 4X/DAY RF: 0 budesonide 0.5 MG/2ML suspension for nebulization 1 dose inhalation BID RF: 0 metoprolol tartrate 50 mg Tablet 50 mg PO DAILY RF: 0 oxybutynin chloride 5 mg Tablet 5 mg PO DAILY RF: 0 sertraline 50 mg Tablet 50 mg PO DAILY RF: 0 hydrochlorothiazide 12.5 mg capsule 25 mg PO DAILY RF: 0 acetaminophen 500 mg Tablet 1,000 mg PO Q6H PRN PRN (Reason: Pain Score 1-3) Qty: 0 RF: 0 sennosides-docusate sodium [Stool Softener-Stimulant Laxat] 8.6-50 mg Tablet 1 tab PO BID 30 Days Qty: 60 RF: 0 gabapentin 100 mg Capsule 100 mg PO TIDCM 30 Days Qty: 90 RF: 0 oxycodone 5 mg Tablet 5 mg PO Q4H PRN PRN (Reason: Pain Score 6-10) 7 Days Qty: 42 RF: 0 Primary Care Provider: Roderick Ryder Referrals: Roderick Ryder MD [Primary Care Provider] - 5-7 Days Disposition Disposition: Home, Self Care
[2021-08-30] MEDS: Diphth,Pertuss(Acell),Tet Vac 0.5 ML Vial IM (13:19)
[2021-08-30] MEDS: Cephalexin 500 MG Capsule PO (13:20)
== END 2021-08-30 13:36 | disposition home or self-care (01) ==
PROVIDERS: Emergency Provider Emergency Medicine; PCP Family Medicine; Visit Provider Emergency Medicine
DX: S81.812A Laceration without foreign body, left lower leg, initial encounter (principal); J44.9 Chronic obstructive pulmonary disease, unspecified; E66.01 Morbid (severe) obesity due to excess calories; E11.9 Type 2 diabetes mellitus without complications; Z87.891 Personal history of nicotine dependence; I10 Essential (primary) hypertension; F32.A Depression, unspecified; M79.7 Fibromyalgia; G47.33 Obstructive sleep apnea (adult) (pediatric); G25.81 Restless legs syndrome; M51.36 Other intervertebral disc degeneration, lumbar region; K21.9 Gastro-esophageal reflux disease without esophagitis; Z79.84 Long term (current) use of oral hypoglycemic drugs; Z79.899 Other long term (current) drug therapy; W26.8XXA Contact with other sharp object(s), not elsewhere classified, initial encounter; Y93.9 Activity, unspecified; Y92.9 Unspecified place or not applicable; Z23 Encounter for immunization; Z68.38 Body mass index [BMI] 38.0-38.9, adult
CPT/HCPCS: 12002; 90471; 90715; 99283

== ENCOUNTER 2021-10-04 10:15 | Outpatient (RCR) | payer MEDICARE, SELFPAY ==
[2021-09-26 13:20] VITALS: BP 161/76; PULSE 71; RESP 20; TEMP 37.3; BMI 36.4
[2021-09-26 15:19] LABS: Absolute Lymphocyte Count 1.18 X10^3/uL (0.83-4.51); Absolute Neutrophil Count 5.4 X10^3/uL (2.0-7.7); Basophil# 0.06 X10^3/uL; Basophil% 0.8 % (0-1); Eosinophils% 2.6 % (0-5); Hematocrit 38.6 % (37-47); Hemoglobin 12.3 g/dL (12.0-15.0); Lymphocyte # 1.18 X10^3/ul (0.83-4.51); Lymphocyte % 15.3 % (19-41); Mean Corp Hgb Conc 31.9 g/dL (32-36); Mean Corpuscular Hgb 30.8 pg (27.0-32.0); Mean Corpuscular Volume 96.5 fL (81-99); Monocyte% 11.6 % (0-10); NRBC Flagged by Analyzer 0 % (0-5); Neutrophil # 5.36 X10^3/uL (2.7-7.7); Neutrophil % 69.3 % (47-70); Platelet Count 262 K/mm3 (150-450); RBC Distribution Width CV 12.9 % (11.6-14.6); White Blood Count 7.7 K/mm3 (4.4-11.0)
[2021-09-26 15:56] LABS: Erythrocyte Sedimentation Rate 29 mm/hr (0-30)
[2021-09-26 15:58] LABS: AST(SGOT) 21 U/L (15-37); Alanine Aminotransfer ALT/SGPT 22 U/L (13-56); Albumin, Serum 3.8 g/dL (3.2-5.0); Alkaline Phosphatase 88 U/L (45-117); Anion Gap 5 (5-15); BUN 27 mg/dL (7-18); BUN/Creat Ratio 34.5 RATIO (10-20); Calcium,Total 9.1 mg/dL (8.5-10.1); Chloride 96 mmol/L (98-107); Creatinine, Serum 0.78 mg/dL (0.55-1.02); EST Glomerular Filtration Rate 76 mL/min (>60); Est Glom Filt Rate - Afr Amer 92 mL/min (>60); Estimated Creatinine Clearance 42.62 ml/min; Globulin 3.8 g/dL (2.2-4.2); Glucose 116 mg/dL (74-106); Potassium 3.9 mmol/L (3.5-5.1); Prealbumin 20.2 mg/dL (20.0-40.0); Protein, Total 7.6 g/dL (6.4-8.2); Sodium Level 138 mmol/L (136-145)
--- NOTE | 2021-09-26 16:12 | HP.PCM_ITS ---
History of Present Illness Date of Service: 09/26/21 Chief Complaint: Venous leg ulcer left lower extremity History of Wound: This is a 76-year-old white female who presents to the wound healing center today with complaint of nonhealing ulceration on her left lower extremity. She has a past medical history significant for chronic hypoxia on supplemental O2, COPD, type 2 diabetes mellitus, CHF, and osteoarthritis of the bilateral knees and GERD. The patient states that her wound initially occurred after tripping over her walker over a month ago. Since then she has followed up with her primary care and has been placed on Keflex and has been utilizing triple antibiotic ointment covering with gauze for the last couple weeks. She states that she has not been utilizing any compression. She recently completed her Keflex. She denies any systemic or localized signs of infection at this time. Denies any prior cultures being taken and denies any previous arterial or venous studies. Denies any other aggravating alleviating factors. Past medical, family, and social history reviewed and not pertinent to the current visit and all other systems reviewed and negative with exception of those listed above. [facility] Medical History (Updated 09/26/21 @ 16:26 by Ajay Ramos NP, PHARMACY CLINICAL SPECIALIST-C) COPD (chronic obstructive pulmonary disease) Debility Degenerative disc disease, lumbar Depression Edema of both lower extremities Essential hypertension Fibromyalgia Generalized muscle weakness GERD (gastroesophageal reflux disease) Morbid obesity with BMI of 40.0-44.9, adult Muscle spasm MICHEL (obstructive sleep apnea) Osteoarthritis Right knee pain RLS (restless legs syndrome) Type 2 diabetes mellitus without complication Venous stasis ulcer of left lower leg with edema of left lower leg Home Medications albuterol sulfate 90 mcg/actuation aerosol inhaler 2 puff INHALATION Q4H PRN g 10/14/18 [History Last Taken Unknown] meloxicam 7.5 mg tablet 7.5 mg PO DAILY 10/14/18 [History Last Taken Unknown] metformin 500 mg tablet 500 mg PO DAILY tab 10/14/18 [History Last Taken Unknown] ropinirole 0.5 mg tablet 1.5 mg PO QHS tab 10/14/18 [History Last Taken Unknown] Oxygen #1 ea 10/27/18 [History Last Taken Unknown] budesonide 1 dose INHALATION BID 12/22/18 [History Last Taken Unknown] ipratropium-albuterol 1 dose INHALATION 4X/DAY 12/22/18 [History Last Taken Unknown] hydrochlorothiazide 25 mg PO DAILY 07/25/21 [History Last Taken Unknown] metoprolol tartrate 50 mg PO DAILY 07/25/21 [History Last Taken Unknown] oxybutynin chloride 5 mg PO DAILY 07/25/21 [History Last Taken Unknown] sertraline 50 mg PO DAILY 07/25/21 [History Last Taken Unknown] acetaminophen 1,000 mg PO Q6H PRN PRN #0 tab 08/07/21 [Rx Last Taken Unknown] gabapentin 100 mg PO TIDCM 30 Days #90 cap 08/07/21 [Rx Last Taken Unknown] oxycodone 5 mg PO Q4H PRN PRN 7 Days #42 tab 08/07/21 [Rx Last Taken Unknown] sennosides-docusate sodium [Stool Softener-Stimulant Laxat] 1 tab PO BID 30 Days #60 tab 08/07/21 [Rx Last Taken Unknown] cephalexin 500 mg PO Q6 #40 capsule 08/30/21 [Rx Last Taken Unknown] Allergy/AdvReac Type Severity Reaction Status Date / Time lisinopril AdvReac Intermediate cough Verified 08/30/21 12:07 pregabalin [From Lyrica] AdvReac Swelling Verified 08/30/21 12:07 Family History Mother Cancer lymphoma Father COPD (chronic obstructive pulmonary disease) Cancer bone Son Heart disease ischemic heart disease Surgical History History of appendectomy History of hysterectomy History of tonsillectomy Social History household members: none Smoking Status: Former smoker how long ago did patient quit smokin.5 years ago alcohol intake: current alcohol intake frequency: holidays/special occasions only substance use type: does not use caffeine: Yes Type: coffee Number of servings: 1 ROS ROS Narrative Negative x10 systems with the exception of those listed above Vital Signs Vital Signs Vital Signs: 09/26/21 13:20 Temperature 99.2 F H Temperature Source Temporal Pulse Rate 71 Respiratory Rate 20 H Blood Pressure 161/76 H Blood Pressure Mean 104 Blood Pressure Source Monitor Weight Weight: 212 lb 6.08 oz Body Mass Index (BMI) 36.4 Physical Exam Const alert, oriented x3, no apparent distress, healthy appearing and well nourished General Appearance: cooperative Exam Limitations: no limitations HEENT normocephalic Head and Scalp: normal to inspection Mouth: oral and palatal mucosa normal Eyes General Eye: normal appearance of both eyes Resp normal respiratory effort, normal air movement and no use of accessory muscles Effort and Inspection: able to speak in complete sentences Auscultation: clear to auscultation bilaterally Cardio regular rate, regular rhythm, S1 normal heart sound, S2 normal heart sound, no murmurs and peripheral pulses 2+ throughout Palpation: normal PMI Rate: regular rate Heart Sounds: S1 normal and S2 normal GI normal to inspection, nondistended, normoactive bowel sounds, soft to palpation, non-tender and non-distended Palpation: soft Extremity normal to inspection and full ROM General Extremity: normal exam except as noted Skin Wound Narrative: +1 pitting edema bilateral lower extremities, left posterior lower extremity large ulceration present with large amount of eschar, slough, and devitalized tissue, site is not warm and no streaking noted, serosanguineous drainage mild amount noted at this time Neuro oriented x3 and moves all extremities Sensorium / Orientation: awake, alert, oriented to person, oriented to place and oriented to time Psych mental status grossly normal, thought process normal and denies hallucinations Appearance: grossly normal Attitude: calm Activity / Motor Behavior: appropriate eye contact Speech: normal speech Thought Process: normal thought process Thought Content: normal thought content Attention / Concentration: attention grossly intact Insight: insight good Judgement: judgement good Debridement Note Debridement Note Wound debrided: Left venous leg ulcer Laterality: Left Type of Debridement: Excisional debridement Anesthesia Used: 5% Lidocaine Gel Depth: Down to and including healthy tissue and in the subcutaneous layer Percentage of wound debrided: 100 Instrument Used: 5mm curette Tissue Removed: Slough and devitalized tissue Severity: Fat Layer Exposed Amount of bleeding with debridement: Mild Bleeding Controlled with: Pressure Patient tolerated procedure: Patient tolerated procedure well Post-Debridement Measurements and Additional Note: Post-Debridement Measurements/Treatment DASH - Nurse 1 - General Ulcer Assessment Start: 09/26/21 12:58 Freq: Status: Active Protocol: CHING Activity Type Activity Date Activity User E-Sign Co-Sign Detail Recorded Client Recorded Date Recorded By Document 09/26/21 13:20 DL [id number] 09/26/21 13:37 DL 09/26/21 13:20 WC - Today's Visit Information Type of service Follow-up Visit (Physician/LOCKSTITCH TUNNEL ELASTIC OPERATOR ) Arrival Mode Ambulatory, Walker Transfer Assistance None Patient Identification Verified (Name & Yes ) Patient Requires Transmission-Based No Precautions Height and Weight Height 5 ft 4 in Weight 212 lb 6.08 oz Weight in Pounds 212.4 lbs Body Mass Index (BMI) 36.4 BMI Classification Obese BSA - Petra 2.01 Vital Signs Temperature (97.8 F-99.1 F) 99.2 F H Temperature Source Temporal Pulse Rate (60-100) 71 Pulse Location Monitor Respiratory Rate (12-18) 20 H Respiratory rate source Observation Blood Pressure (90/60-120/80) 161/76 H Blood Pressure Mean 104 Source Monitor History Since Last Visit- (Skip if this is Patient's initial visit) Have you changed medications since your No last visit? Any new allergies or adverse reactions No Had a fall/change in ADL's that may No increase risk of falls Signs or symptoms of abuse and/or No neglect since last visit Have you been in the hospital since your No last visit? Has dressing in place as prescribed Yes Has compression in place as prescribed N/A Has offloadiing in place as prescribed N/A Experienced any changes in pain level or Yes management Left Footwear Regular Shoe Right Footwear Regular Shoe Pain Scale: 0-10 Numeric Is Patient Pain Free? Yes Communication Assessment Preferred language Japanese Able to Read Yes Able to Write Yes Right Hearing Abillity Hard of Hearing Left Hearing Abillity Hard of Hearing Visual Assistive Devices Glasses Teaching Assessment Preferences Verbal,Written, Demonstration Barriers to Learning None Readiness To Learn Fair Willingness to Engage in Self Management Med Activies Readiness to Engage in Self Management Med Activities Anxiety Level Calm Cooperation Cooperative Perception Coherent Interest in Health Problem Asks Questions Education Importance Acknowledges Need Does Patient Smoke tobacco or other No substances Smoking Status Former smoker Is Patient Diabetic Yes Functional Assessment Recent Decline in Ability to Perform Denies Any Declines Culture/Jewish/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 Non Licensed Nuclear Plant Operator to contact place of judaism No Teaching: Wound Center Diagnostic Tests Ordered -Person Taught Patient,Family Discharge Instructions -Person Taught Patient,Family Dressing Your Wound -Person Taught Patient,Family *Welcome to the Wound Center -Person Taught Patient,Family WC - Nurse 1 - General Ulcer Measurement Start: 09/26/21 12:58 Freq: Status: Active Protocol: Activity Type Activity Date Activity User E-Sign Co-Sign Detail Recorded Client Recorded Date Recorded By Document 09/26/21 13:20 DL [id number] 09/26/21 13:37 DL 09/26/21 13:20 Wound Center Nurse 1 #1 LLE Post -Current Size (cm) - Length 6.7 -Current Size (cm) - Width 2.5 -Current Size (cm) - Depth 0.3 -Total Square Cm 16.75 -Photo Taken Yes -Exudate Amt Medium -Exudate Type Serosanguineous -Wound Margin Distinct, Outline Attached -Granulation Amt Small (1-33%) -Granulation Quality Red -Necrosis Amt Large (67-100%) -Necrotic Tissue Type Adherent Slough -Structure Exposed N/A -Texture (Leticia-wound Skin Appearance) Localized Edema ,Scarring -Moisture (Leticia-wound Skin Appearance) No Abnormality -Color (Leticia-wound Skin Appearance) Erythema -Temperature (Leticia-wound Skin No Abnormality Appearance) (Pt Warm) -Tenderness on Palpation (Leticia-wound No Skin Appearance) -Ulcer Cleansing Soap and Water -Foul Odor after Cleansing No -Anesthetic Used 4% Lidocaine Solution Left Calf (cm) 43.5 Left Ankle (cm) 23.5 WC - Nurse 2 - General Ulcer CM Notes Start: 09/26/21 12:58 Freq: Status: Active Protocol: Activity Type Activity Date Activity User E-Sign Co-Sign Detail Recorded Client Recorded Date Recorded By Document 09/26/21 13:59 MW [id number] 09/26/21 14:17 MW Edit Result 09/26/21 13:59 MW (1) [id number] 09/26/21 14:24 MW (1) #1 LLE Post - Injectable Lidocaine w/ Epi (%) => 1 - Injectable Lidocaine w/ Epi (mls) => 8 09/26/21 13:59 Wound Center Nurse 2 #1 LLE Post -Time 13:59 -Correct Patient Yes -Correct Side, Site, Position Yes -Correct Procedure Yes -Procedure Performed Yes -Type of Procedure Debridement -Clinical Debridement Subcutaneous -Tissue Removed Subcutaneous -Post Debridement (cm) - Length 8.0 -Post Debridement (cm) - Width 3.5 -Post Debridement (cm) - Depth 1.5 -Total Square (Post) (cm) 28.00 -Area of Debridement (cm) - Length 8.0 -Area of Debridement (cm) - Width 3.5 -Total Square (Area) (cm) 28.00 -Tunneling No -Undermining/Tunneling No -Circular Undermining No -Wound/Ulcer Outcome Not Healed -Ulcer Cleansing Rinsed/ Irrigated with Saline -Foul Odor after Cleansing No -Bioengineered Tissue No -Injectable Lidocaine w/ Epi (%) 1 -Injectable Lidocaine w/ Epi (mls) 8 -Bleeding Controlled with Pressure -Treatment Response Procedure Tolerated Well -Offloading No -Debridement - Subq, 1st 20sq cm Yes -Debridement, SubQ, ea addt'l 20sq cm 1 or part thereof Pain Scale: 0-10 Numeric Is Patient Pain Free? Yes Lab / Micro Data Result Diagrams: 09/26/21 14:55 09/26/21 14:55 Labs: Laboratory Results - last 24 hr 09/26/21 14:55: Sodium 138, Potassium 3.9, Chloride 96 L, Carbon Dioxide 37.0 H, Anion Gap 5, BUN 27 H, Creatinine 0.78, Estim Creat Clear Calc 42.62, Est GFR (MDRD) Af Amer 92, Est GFR (MDRD) Non-Af 76, BUN/Creatinine Ratio 34.5 H, Glu cose 116 H, Calcium 9.1, Total Bilirubin 0.40, AST 21, ALT 22, Alkaline Phosphatase 88, Total Protein 7.6, Albumin 3.8, Globulin 3.8, Albumin/Globulin Ratio 1.0, Prealbumin 20.2 09/26/21 14:55: WBC 7.7, RBC 4.00 L, Hgb 12.3, Hct 38.6, MCV 96.5, MCH 30.8, MCHC 31.9 L, RDW Std Deviation 46.0 H, RDW Coeff of Stephenie 12.9, Plt Count 262, MPV 9.0, Immature Gran % (Auto) 0.400, Neut % (Auto) 69.3, Lymph % (Auto) 15.3 L, Cache % (Auto) 11.6 H, Eos % (Auto) 2.6, Baso % (Auto) 0.8, Absolute Neuts (auto) 5.4, Absolute Lymphs (auto) 1.18, Nucleated RBC % 0, ESR 29 09/26/21 14:55: Hemoglobin A1c 6.0 H Charges/Coding Visit Charges Office Visits / Consults: 06323 OV L4 Est Procedures Integumentary [id number]: 62012 [place] subq tissue 20 sq cm/< Assessment/Plan Assessment/Plan (1) Venous stasis ulcer of left lower leg with edema of left lower leg: CODE(S): I83.029 - Varicose veins of left lower extremity with ulcer of unspecified site; I83.892 - Varicose veins of left lower extremity with other complications; L97.929 - Non-pressure chronic ulcer of unspecified part of left lower leg with unspecified severity; R60.9 - Edema, unspecified (2) Essential hypertension: CODE(S): I10 - Essential (primary) hypertension (3) Debility: CODE(S): R53.81 - Other malaise (4) Chronic obstructive pulmonary disease: CODE(S): J44.9 - Chronic obstructive pulmonary disease, unspecified (5) Hypertension: CODE(S): I10 - Essential (primary) hypertension (6) Diabetes mellitus: CODE(S): E11.9 - Type 2 diabetes mellitus without complications (7) Gastroesophageal reflux disease: CODE(S): K21.9 - Gastro-esophageal reflux disease without esophagitis PLAN: Debridement performed today in clinic as annotated above. Silver cell cover with gauze applied. At home wound-care instructions: See above Change dressing once daily or more frequently as needed due to contamination. Wash wounds daily with antibacterial soap and water, rinse and dry thoroughly before each dressing change. Compression: Double layer Tubigrip Off-loading: The patient was instructed to avoid pressure and friction on the affected areas. Reposition every 2 hours at minimum. Avoid prolonged standing a nd/or dangling of legs. When seated, feet should be elevated at chest level. Frequent ambulation is encouraged. Diet: Patient encouraged to increase protein intake while taking caution to avoid high carbohydrate and/or sugar intake. Patient is a former smoker Labs/cultures/imaging: Cultures ordered and collected today. Routine baseline lab work ordered. Vascular studies ordered. Given the depth of the patient's wound will apply for a snap vac as well Follow-up: Return to clinic in 1 week for re-evaluation. Return sooner or report to the emergency room should symptoms worsen, or new symptoms arise.
[2021-10-04 10:43] VITALS: BP 160/71; PULSE 70; RESP 18; TEMP 36.1; BMI 36.4
--- NOTE | 2021-10-04 11:52 | WC ---
snap vac applied and alan applied on LLE
--- NOTE | 2021-10-04 16:52 | PCM.WC.PN ---
History of Present Illness Date of Service: 10/04/21 Chief Complaint: Venous leg ulcer left lower extremity History of Wound: This is a 76-year-old white female who presents to the wound healing center today with complaint of nonhealing ulceration on her left lower extremity. She has a past medical history significant for chronic hypoxia on supplemental O2, COPD, type 2 diabetes mellitus, CHF, and osteoarthritis of the bilateral knees and GERD. The patient states that her wound initially occurred after tripping over her walker over a month ago. Since then she has followed up with her primary care and has been placed on Keflex and has been utilizing triple antibiotic ointment covering with gauze for the last couple weeks. She states that she has not been utilizing any compression. She recently completed Keflex. She denies any systemic or localized signs of infection at this time. Denies any prior cultures being taken and denies any previous arterial or venous studies. Denies any other aggravating alleviating factors. Past medical, family, and social history reviewed and not pertinent to the current visit and all other systems reviewed and negative with exception of those listed above. Progress of Wound: Kandi tolerated treatment with Silver cell dressing over the last week. Denies fever, chills, increased drainage, increased pain or increased erythema. Objective Data Objective Data Vital Signs: Vital Signs Temp Pulse Resp BP 97 F L 70 18 160/71 H 10/04/21 10:43 10/04/21 10:43 10/04/21 10:43 10/04/21 10:43 Weight: 96.334 kg Body Mass Index (BMI) 36.4 Lab / Micro Data Result Diagrams: 09/26/21 14:55 09/26/21 14:55 Micro: Microbiology 09/26/21 14:00 Wound Abcess - Leg, Left Gram Stain - Final 09/26/21 14:00 Wound Abcess - Leg, Left Wound Culture - Final Staphylococcus epidermidis 09/26/21 14:00 Wound Abcess - Leg, Left Anaerobic Culture - Final No anaerobic bacteria isolated. Physical Exam Const alert, oriented x3 and no apparent distress General Appearance: cooperative and comfortable HEENT normocephalic and head/scalp atraumatic Resp normal respiratory effort Effort and Inspection: able to speak in complete sentences Cardio regular rate and regular rhythm Skin Wounds: wounds noted Wound Narrative: as in clinical panel Psych mental status grossly normal, thought process normal, cooperative and affect normal Debridement Note Debridement Note Wound debrided: left LE posterior Laterality: Left Type of Debridement: Excisional debridement Anesthesia Used: 4% Lidocaine Solution, 5% Lidocaine Gel, Cetacaine and - (1% lidocaine with epi) Depth: Down to and including healthy tissue and in the subcutaneous layer Percentage of wound debrided: 100 Instrument Used: #15 blade and Forceps Tissue Removed: Yellow slough, devitalized tissue Severity: Fat Layer Exposed Amount of bleeding with debridement: Mild Bleeding Controlled with: Compression and gauze Patient tolerated procedure: Patient tolerated procedure well Post-Debridement Measurements and Additional Note: Post-Debridement Measurements/Treatment - Nurse 1 - General Ulcer Assessment Start: 09/26/21 12:58 Freq: Status: Active Protocol: CHING Activity Type Activity Date Activity User E-Sign Co-Sign Detail Recorded Client Recorded Date Recorded By Document 09/26/21 13:20 DL [id number] 09/26/21 13:37 DL Document 10/04/21 10:43 RB [id number] 10/04/21 10:46 RB 09/26/21 10/04/21 13:20 10:43 - Today's Visit Information Type of service Follow-up Visit Follow-up Visit (Physician/FILM PAINTER (Physician/FILM PAINTER ) ) Arrival Mode Ambulatory, Ambulatory Walker Transfer Assistance None None Patient Identification Verified (Name & Yes Yes ) Patient Requires Transmission-Based No No Precautions Height and Weight Height 5 ft 4 in Weight 96.334 kg Weight in Pounds 212.4 lbs Body Mass Index (BMI) 36.4 36.4 BMI Classification Obese Obese BSA - Petra 2.01 Vital Signs Temperature (97.8 F-99.1 F) 99.2 F H 97 F L Temperature Source Temporal Temporal Pulse Rate (60-100) 71 70 Pulse Location Monitor Monitor Respiratory Rate (12-18) 20 H 18 Respiratory rate source Observation Observation Blood Pressure (90/60-120/80) 161/76 H 160/71 H Blood Pressure Mean (mm Hg) 104 100 Source Monitor Monitor Position Semi-Fowlers Blood Pressure Location Left Arm History Since Last Visit- (Skip if this is Patient's initial visit) Have you changed medications since your No No last visit? Any new allergies or adverse reactions No No Had a fall/change in ADL's that may No No increase risk of falls Signs or symptoms of abuse and/or No No neglect since last visit Have you been in the hospital since your No No last visit? Has dressing in place as prescribed Yes Yes Has compression in place as prescribed N/A No Has offloadiing in place as prescribed N/A No Experienced any changes in pain level or Yes No management Left Footwear Regular Shoe Regular Shoe Right Footwear Regular Shoe Regular Shoe Pain Scale: 0-10 Numeric Is Patient Pain Free? Yes Yes Communication Assessment Preferred language Lebanese Able to Read Yes Able to Write Yes Right Hearing Abillity Hard of Hearing Left Hearing Abillity Hard of Hearing Visual Assistive Devices Glasses Teaching Assessment Preferences Verbal,Written, Demonstration Barriers to Learning None Readiness To Learn Fair Willingness to Engage in Self Management Med Activies Readiness to Engage in Self Management Med Activities Anxiety Level Calm Cooperation Cooperative Perception Coherent Interest in Health Problem Asks Questions Education Importance Acknowledges Need Does Patient Smoke tobacco or other No substances Smoking Status Former smoker Is Patient Diabetic Yes Functional Assessment Recent Decline in Ability to Perform Denies Any Declines Culture/Judaism/Oil Pumper Cultural/Judaism Needs that may affect No Treatment Plan Would you allow our hospital associate software engineer to No meet you for the purpose of spiritual/ emotional support? Oil Pumper to contact place of catholic No Teaching: Wound Center Diagnostic Tests Ordered -Person Taught Patient,Family Discharge Instructions -Person Taught Patient,Family Dressing Your Wound -Person Taught Patient,Family *Welcome to the Wound Center -Person Taught Patient,Family WC - Nurse 1 - General Ulcer Measurement Start: 09/26/21 12:58 Freq: Status: Active Protocol: Activity Type Activity Date Activity User E-Sign Co-Sign Detail Recorded Client Recorded Date Recorded By Document 09/26/21 13:20 DL [id number] 09/26/21 13:37 DL Document 10/04/21 10:43 RB [id number] 10/04/21 10:46 RB 09/26/21 10/04/21 13:20 10:43 Wound Center Nurse 1 #1 LLE Post -Combined with other wound No -Current Size (cm) - Length 6.7 6.2 -Current Size (cm) - Width 2.5 1.5 -Current Size (cm) - Depth 0.3 0.4 -Total Square Cm 16.75 9.30 -Photo Taken Yes -Tunneling No -Undermining/Tunneling No -Circular Undermining No -Exudate Amt Medium Large -Exudate Type Serosanguineous Serosanguineous -Wound Margin Distinct, Distinct, Outline Outline Attached Attached -Granulation Amt Small (1-33%) Medium (34-66%) -Granulation Quality [place],Red -Slough/Fibrin Yes -Necrosis Amt Large (67-100%) Small (1-33%) -Necrotic Tissue Type Adherent Slough Adherent Slough -Structure Exposed N/A N/A -Texture (Leticia-wound Skin Appearance) Localized Edema Assessed ,Scarring -Moisture (Leticia-wound Skin Appearance) No Abnormality Assessed -Color (Leticia-wound Skin Appearance) Erythema Assessed, Hemosiderin Staining -Temperature (Leticia-wound Skin No Abnormality No Abnormality Appearance) (Pt Warm) (Pt Warm) -Tenderness on Palpation (Leticia-wound No No Skin Appearance) -Ulcer Cleansing Soap and Water Wound Cleanser -Foul Odor after Cleansing No No -Anesthetic Used 4% Lidocaine 4% Lidocaine Solution Solution,5% Lidocaine Gel Lower Limb Edema Present Yes Left Calf (cm) 43.5 41 Left Ankle (cm) 23.5 23.5 WC - Nurse 2 - General Ulcer CM Notes Start: 09/26/21 12:58 Freq: Status: Active Protocol: Activity Type Activity Date Activity User E-Sign Co-Sign Detail Recorded Client Recorded Date Recorded By Document 09/26/21 13:59 MW [id number] 09/26/21 14:17 MW Edit Result 09/26/21 13:59 MW (1) [id number] 09/26/21 14:24 MW Document 10/04/21 11:02 MW [id number] 10/04/21 11:29 MW (1) #1 LLE Post - Injectable Lidocaine w/ Epi (%) => 1 - Injectable Lidocaine w/ Epi (mls) => 8 09/26/21 10/04/21 13:59 11:02 Wound Center Nurse 2 #1 LLE Post -Time 13:59 11:09 -Correct Patient Yes Yes -Correct Side, Site, Position Yes Yes -Correct Procedure Yes Yes -Procedure Performed Yes Yes -Type of Procedure Debridement Debridement -Clinical Debridement Subcutaneous Subcutaneous -Tissue Removed Subcutaneous Subcutaneous -Post Debridement (cm) - Length 8.0 6.2 -Post Debridement (cm) - Width 3.5 2.8 -Post Debridement (cm) - Depth 1.5 1.0 -Total Square (Post) (cm) 28.00 17.36 -Area of Debridement (cm) - Length 8.0 6.2 -Area of Debridement (cm) - Width 3.5 2.8 -Total Square (Area) (cm) 28.00 17.36 -Tunneling No No -Undermining/Tunneling No No -Circular Undermining No No -Wound/Ulcer Outcome Not Healed Not Healed -Ulcer Cleansing Rinsed/ Rinsed/ Irrigated with Irrigated with Saline Saline -Foul Odor after Cleansing No No -Bioengineered Tissue No No -Injectable Lidocaine w/ Epi (%) 1 -Injectable Lidocaine w/ Epi (mls) 8 -Bleeding Controlled with Pressure Pressure -Treatment Response Procedure Procedure Tolerated Well Tolerated Well -Offloading No No -Debridement - Subq, 1st 20sq cm Yes Yes -Debridement, SubQ, ea addt'l 20sq cm 1 or part thereof Pain Scale: 0-10 Numeric Is Patient Pain Free? Yes Yes - Nurse 3 - General Ulcer D/C NN Start: 09/26/21 12:58 Freq: Status: Active Protocol: Activity Type Activity Date Activity User E-Sign Co-Sign Detail Recorded Client Recorded Date Recorded By Document 10/04/21 11:41 [id number] 10/04/21 11:43 CAROLINE 10/04/21 11:41 Wound Care Nurse 3 #1 LLE Post -Ulcer Cleansing Rinsed/ Irrigated with Saline -NPWT Application Charge NPWT & Debridement (nc ) Treatment Response Procedure Tolerated Well Pain Scale: 0-10 Numeric Is Patient Pain Free? Yes - Visit Discharge Discharge Condition Stable Ambulatory Status Ambulatory, Walker Transportation Private Auto Medication Reconcilliation completed & Yes provided to patient/care provider Clinical Summary of Care Provided No Notes: O2 @2L Assessment/Plan Assessment/Plan (1) Venous stasis ulcer of left lower leg with edema of left lower leg: CODE(S): I83.029 - Varicose veins of left lower extremity with ulcer of unspecified site; I83.892 - Varicose veins of left lower extremity with other complications; L97.929 - Non-pressure chronic ulcer of unspecified part of left lower leg with unspecified severity; R60.9 - Edema, unspecified (2) Diabetes mellitus: CODE(S): E11.9 - Type 2 diabetes mellitus without complications QUALIFIERS: Diabetes mellitus type: type 2 Diabetes mellitus complication status: with neurologic complications Diabetes mellitus complication detail: with polyneuropathy Diabetes mellitus buttermaker helper insulin use: without buttermaker helper use Qualified Code(s): E11.42 - Type 2 diabetes mellitus with diabetic polyneuropathy (3) Restless leg syndrome: CODE(S): G25.81 - Restless legs syndrome (4) Left knee DJD: CODE(S): M17.12 - Unilateral primary osteoarthritis, left knee QUALIFIERS: Osteoarthritis type: primary Qualified Code(s): M17.12 - Unilateral primary osteoarthritis, left knee (5) Right knee DJD: CODE(S): M17.11 - Unilateral primary osteoarthritis, right knee QUALIFIERS: Osteoarthritis type: primary Qualified Code(s): M17.11 - Unilateral primary osteoarthritis, right knee (6) Osteoarthritis: CODE(S): M19.90 - Unspecified osteoarthritis, unspecified site QUALIFIERS: Osteoarthritis location: multiple joints Osteoarthritis type: unspecified Qualified Code(s): M15.9 - Polyosteoarthritis, unspecified (7) Hypertension: CODE(S): I10 - Essential (primary) hypertension QUALIFIERS: Hypertension type: primary hypertension Qualified Code(s): I10 - Essential (primary) hypertension (8) Chronic obstructive pulmonary disease: CODE(S): J44.9 - Chronic obstructive pulmonary disease, unspecified QUALIFIERS: COPD type: unspecified COPD Qualified Code(s): J44.9 - Chronic obstructive pulmonary disease, unspecified (9) Debility: CODE(S): R53.81 - Other malaise (10) Essential hypertension: CODE(S): I10 - Essential (primary) hypertension PLAN: Debridement performed today in clinic as annotated above. At home wound-care instructions: Snap vac applied today to the wound/ulcer to help with heavy drainage and to encourage granulation of the ulcer. She will return to clinic if able on Thursday for change of Snap vac and if unable will return Thursday as scheduled for wound care. If she has problems with the snap vac then she will use Silvercell as she was previously this week. Compression: TIMMY compression wrap Off-loading: The patient was instructed to avoid pressure and friction on the affected areas. Reposition every 2 hours at minimum. Avoid prolonged standing and/or dangling of legs. When seated, feet should be elevated at chest level. Frequent ambulation is encouraged. Diet: Patient encouraged to increase protein intake while taking caution to avoid high carbohydrate and/or sugar intake. Patient is a former smoker Labs/cultures/imaging: Cultures reviewed and will start her on doxycycline for staph epidermidis infection. Vascular studies ordered. Follow-up: Return to clinic in 1 week for re-evaluation. Return sooner or report to the emergency room should symptoms worsen, or new symptoms arise.
== END 2021-10-05 23:59 | disposition home or self-care (01) ==
LOC: WC 10:15
PROVIDERS: PCP Family Medicine; Visit Provider Nurse Practitioner Family
DX: I83.028 Varicose veins of left lower extremity with ulcer other part of lower leg (principal); L97.822 Non-pressure chronic ulcer of other part of left lower leg with fat layer exposed; J44.9 Chronic obstructive pulmonary disease, unspecified; I11.0 Hypertensive heart disease with heart failure; I50.9 Heart failure, unspecified; E11.42 Type 2 diabetes mellitus with diabetic polyneuropathy; G25.81 Restless legs syndrome; I87.2 Venous insufficiency (chronic) (peripheral); M17.0 Bilateral primary osteoarthritis of knee; R60.0 Localized edema; M79.7 Fibromyalgia; K21.9 Gastro-esophageal reflux disease without esophagitis; G47.33 Obstructive sleep apnea (adult) (pediatric); Z79.1 Long term (current) use of non-steroidal anti-inflammatories (NSAID); Z79.84 Long term (current) use of oral hypoglycemic drugs; Z79.899 Other long term (current) drug therapy; Z87.891 Personal history of nicotine dependence
CPT/HCPCS: 11042; 11045; 36415; 80053; 83036; 84134; 85025; 85652; 87070; 87075; 87077; 87186; 87205; 99203; G0463

== ENCOUNTER 2021-11-05 08:30 | Outpatient (RCR) | payer MEDICARE, SELFPAY ==
[2021-10-06 00:48] VITALS: BP 160/71; PULSE 70; RESP 18; TEMP 36.1; BMI 36.4
[2021-10-07 09:12] VITALS: BP 137/60; PULSE 77; TEMP 36; BMI 36.4
[2021-10-11 08:35] VITALS: BP 130/88; PULSE 91; TEMP 36.1; BMI 36.4
--- NOTE | 2021-10-11 14:17 | PN.PCM_ITS ---
History of Present Illness Date of Service: 10/11/21 Chief Complaint: Venous leg ulcer left lower extremity History of Wound: This is a 76-year-old white female who presents to the wound healing center today with complaint of nonhealing ulceration on her left lower extremity. She has a past medical history significant for chronic hypoxia on supplemental O2, COPD, type 2 diabetes mellitus, CHF, and osteoarthritis of the bilateral knees and GERD. The patient states that her wound initially occurred after tripping over her walker over a month ago. Since then she has followed up with her primary care and has been placed on Keflex and has been utilizing triple antibiotic ointment covering with gauze for the last couple weeks. She states that she has not been utilizing any compression. She recently completed Keflex. She denies any systemic or localized signs of infection at this time. Denies any prior cultures being taken and denies any previous arterial or venous studies. Denies any other aggravating alleviating factors. Past medical, family, and social history reviewed and not pertinent to the current visit and all other systems reviewed and negative with exception of those listed above. Subjective Subjective Kandi tolerated Snap vac treatment but it filled up by Thursday and when she came in on Thursday for nurse visit they had her just use Silvercell dressings until her visit today which she tolerated well. Denies fever, chills, increased drainage, increased pain or increased erythema. Objective Data Objective Data Vital Signs: Vital Signs Temp Pulse Resp BP 96.9 F L 91 18 130/88 H 10/11/21 08:35 10/11/21 08:35 10/06/21 00:48 10/11/21 08:35 Weight: 96.334 kg Body Mass Index (BMI) 36.4 Physical Exam Const alert, oriented x3 and no apparent distress General Appearance: cooperative and comfortable HEENT normocephalic and head/scalp atraumatic Resp normal respiratory effort Effort and Inspection: able to speak in complete sentences Cardio regular rate and regular rhythm Skin Wounds: wounds noted Wound Narrative: as in clinical panel Psych mental status grossly normal, thought process normal, cooperative and affect normal Debridement Note Debridement Note Wound debrided: Left LE posterior Laterality: Left Type of Debridement: Excisional debridement Anesthesia Used: 4% Lidocaine Solution, 5% Lidocaine Gel, Cetacaine and - (13 CC lidocaine 1% with epi used to anesthetize her ulcer) Depth: Down to and including healthy tissue and in the subcutaneous layer Percentage of wound debrided: 100 Instrument Used: #15 blade and Forceps Tissue Removed: Yellow slough, devitalized tissue Severity: Fat Layer Exposed Amount of bleeding with debridement: Mild Bleeding Controlled with: Compression and gauze Patient tolerated procedure: Patient tolerated procedure well Post-Debridement Measurements and Additional Note: Post-Debridement Measurements/Treatment WC - Nurse 1 - General Ulcer Assessment Start: 10/07/21 09:12 Freq: Status: Active Protocol: CHING Activity Type Activity Date Activity User E-Sign Co-Sign Detail Recorded Client Recorded Date Recorded By Document 10/07/21 09:12 KR [id number] 10/07/21 09:14 KR Document 10/11/21 08:35 AK [id number] 10/11/21 08:46 AK 10/07/21 10/11/21 09:12 08:35 WC - Today's Visit Information Type of service Nurse-only Follow-up Visit 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 ) Arrival Mode Ambulatory, Ambulatory, Walker Walker Accompanied by daughter Patient Identification Verified (Name & Yes No ) Patient Requires Transmission-Based No Precautions Safety Precautions NA Height and Weight Body Mass Index (BMI) 36.4 36.4 BMI Classification Obese Obese Vital Signs Temperature (97.8 F-99.1 F) 96.8 F L 96.9 F L Temperature Source Temporal Temporal Pulse Rate (60-100) 77 91 Pulse Location Monitor Monitor Blood Pressure (90/60-120/80) 137/60 H 130/88 H Blood Pressure Mean (mm Hg) 85 102 Source Monitor Monitor Position Sitting Blood Pressure Location Left Arm History Since Last Visit- (Skip if this is Patient's initial visit) Have you changed medications since your No No last visit? Any new allergies or adverse reactions No No Had a fall/change in ADL's that may No No increase risk of falls Signs or symptoms of abuse and/or No No neglect since last visit Have you been in the hospital since your No No last visit? Has dressing in place as prescribed Yes Yes Has compression in place as prescribed N/A N/A Has offloadiing in place as prescribed N/A N/A Experienced any changes in pain level or No No management Left Footwear Regular Shoe Regular Shoe Right Footwear Regular Shoe Regular Shoe Pain Scale: 0-10 Numeric Is Patient Pain Free? Yes Yes WC - Nurse 1 - General Ulcer Measurement Start: 10/07/21 09:12 Freq: Status: Active Protocol: Activity Type Activity Date Activity User E-Sign Co-Sign Detail Recorded Client Recorded Date Recorded By Document 10/11/21 08:35 AK [id number] 10/11/21 08:46 AK 10/11/21 08:35 Wound Center Nurse 1 #1 LLE Post -Combined with other wound No -Current Size (cm) - Length 6.2 -Current Size (cm) - Width 2.8 -Current Size (cm) - Depth 0.5 -Total Square Cm 17.36 -Date of Last Picture (Recall this 10/11/21 field) -Photo Taken Yes -Tunneling No -Undermining/Tunneling No -Circular Undermining No -Change in Wound Grade/Stage No -Exudate Amt Large -Exudate Type Serosanguineous -Wound Margin Distinct, Outline Attached -Granulation Amt Medium (34-66%) -Granulation Quality [place],Red -Slough/Fibrin Yes -Necrosis Amt Medium (34-66%) -Necrotic Tissue Type Adherent Slough -Structure Exposed N/A -Texture (Leticia-wound Skin Appearance) Assessed, Scarring -Moisture (Letiica-wound Skin Appearance) Assessed -Color (Leticia-wound Skin Appearance) Assessed -Temperature (Leticia-wound Skin No Abnormality Appearance) (Pt Warm) -Tenderness on Palpation (Leticia-wound No Skin Appearance) -Ulcer Cleansing Wound Cleanser -Foul Odor after Cleansing No -Anesthetic Used 4% Lidocaine Solution,5% Lidocaine Gel WC - Nurse 2 - General Ulcer CM Notes Start: 10/07/21 09:12 Freq: Status: Active Protocol: Activity Type Activity Date Activity User E-Sign Co-Sign Detail Recorded Client Recorded Date Recorded By Document 10/11/21 08:57 MW [id number] 10/11/21 09:31 MW Edit Result 10/11/21 08:57 MW (1) [id number] 10/11/21 10:08 MW (1) #1 LLE Post - Injectable Lidocaine w/ Epi (%) => 1 - Injectable Lidocaine w/ Epi (mls) => 13 10/11/21 08:57 Wound Center Nurse 2 -Time 09:01 -Correct Patient Yes -Correct Side, Site, Position Yes -Correct Procedure Yes -Procedure Performed Yes -Type of Procedure Debridement -Clinical Debridement Subcutaneous -Tissue Removed Subcutaneous -Post Debridement (cm) - Length 6.0 -Post Debridement (cm) - Width 2.8 -Post Debridement (cm) - Depth 0.5 -Total Square (Post) (cm) 16.80 -Area of Debridement (cm) - Length 6.0 -Area of Debridement (cm) - Width 2.8 -Total Square (Area) (cm) 16.80 -Tunneling No -Circular Undermining No -Wound/Ulcer Outcome Not Healed -Ulcer Cleansing Rinsed/ Irrigated with Saline -Foul Odor after Cleansing No -Bioengineered Tissue No -Injectable Lidocaine w/ Epi (%) 1 -Injectable Lidocaine w/ Epi (mls) 13 -Bleeding Controlled with Pressure -Treatment Response Procedure Tolerated Well -Offloading No -Debridement - Subq, 1st 20sq cm Yes Pain Scale: 0-10 Numeric Is Patient Pain Free? Yes - Nurse 3 - General Ulcer D/C NN Start: 10/07/21 09:12 Freq: Status: Active Protocol: Activity Type Activity Date Activity User E-Sign Co-Sign Detail Recorded Client Recorded Date Recorded By Document 10/07/21 09:12 [id number] 10/07/21 09:14 KR 10/07/21 09:12 Vital Signs Temperature (97.8 F-99.1 F) 96.8 F L Temperature Source Temporal Pulse Rate (60-100) 77 Pulse Location Monitor Blood Pressure (90/60-120/80) 137/60 H Blood Pressure Mean (mm Hg) 85 Source Monitor Position Sitting Blood Pressure Location Left Arm Pain Scale: 0-10 Numeric Is Patient Pain Free? Yes Wound Care Nurse 3 #1 LLE Post -Ulcer Cleansing Rinsed/ Irrigated with Saline -Primary Dressing Applied Silvercel -Primary Dressing Covered/Secured with Dry Gauze,Dry Gauze & Roll Gauze,Secured with Tape -Silvercel 1 Left -Compression Wrap Juvencio Wrap WC - Visit Discharge Discharge Condition Stable Ambulatory Status Ambulatory, Walker Transportation Private Auto Assessment/Plan Assessment/Plan (1) Venous stasis ulcer of left lower leg with edema of left lower leg: CODE(S): I83.029 - Varicose veins of left lower extremity with ulcer of unspecified site; I83.892 - Varicose veins of left lower extremity with other complications; L97.929 - Non-pressure chronic ulcer of unspecified part of left lower leg with unspecified severity; R60.9 - Edema, unspecified (2) Left knee DJD: CODE(S): M17.12 - Unilateral primary osteoarthritis, left knee QUALIFIERS: Osteoarthritis type: primary Qualified Code(s): M17.12 - Unilateral primary osteoarthritis, left knee (3) Right knee DJD: CODE(S): M17.11 - Unilateral primary osteoarthritis, right knee QUALIFIERS: Osteoarthritis type: primary Qualified Code(s): M17.11 - Unilateral primary osteoarthritis, right knee (4) Restless leg syndrome: CODE(S): G25.81 - Restless legs syndrome (5) Gastroesophageal reflux disease: CODE(S): K21.9 - Gastro-esophageal reflux disease without esophagitis QUALIFIERS: Esophagitis presence: esophagitis presence not specified Qualified Code(s): K21.9 - Gastro-esophageal reflux disease without esophagitis (6) Diabetes mellitus: CODE(S): E11.9 - Type 2 diabetes mellitus without complications QUALIFIERS: Diabetes mellitus type: type 2 Diabetes mellitus long-term insulin use: without long term care social worker use Diabetes mellitus complication status: with neurologic complications Diabetes mellitus complication detail: with polyneuropathy Qualified Code(s): E11.42 - Type 2 diabetes mellitus with diabetic polyneuropathy (7) Osteoarthritis: CODE(S): M19.90 - Unspecified osteoarthritis, unspecified site QUALIFIERS: Osteoarthritis location: multiple joints Osteoarthritis type: unspecified Qualified Code(s): M15.9 - Polyosteoarthritis, unspecified (8) Hypertension: CODE(S): I10 - Essential (primary) hypertension QUALIFIERS: Hypertension type: primary hypertension Qualified C ode(s): I10 - Essential (primary) hypertension (9) Chronic obstructive pulmonary disease: CODE(S): J44.9 - Chronic obstructive pulmonary disease, unspecified QUALIFIERS: COPD type: unspecified COPD Qualified Code(s): J44.9 - Chronic obstructive pulmonary disease, unspecified (10) Debility: CODE(S): R53.81 - Other malaise (11) Essential hypertension: CODE(S): I10 - Essential (primary) hypertension PLAN: Debridement performed today in clinic as annotated above. At home wound-care instructions: Snap vac applied today to the wound/ulcer to help with heavy drainage and to encourage granulation of the ulcer. She will return to clinic on Thursday for change of Snap vac and if she has problems with the snap vac then she will use Silvercell as she was previously until she returns on Thursday. Compression: JUVENCIO compression wrap Off-loading: The patient was instructed to avoid pressure and friction on the affected areas. Reposition every 2 hours at minimum. Avoid prolonged standing and/or dangling of legs. When seated, feet should be elevated at chest level. Frequent ambulation is encouraged. Diet: Patient encouraged to increase protein intake while taking caution to avoid high carbohydrate and/or sugar intake. Patient is a former smoker Labs/cultures/imaging: Vascular studies ordered. Follow-up: Return to clinic in 1 week for re-evaluation. Return sooner or report to the emergency room should symptoms worsen, or new symptoms arise.
[2021-10-14 11:32] VITALS: BP 150/72; PULSE 69; RESP 20; TEMP 35.8; BMI 36.4
[2021-10-18 08:55] VITALS: BP 153/73; PULSE 77; RESP 22; TEMP 36.6; BMI 36.4
--- NOTE | 2021-10-18 12:51 | PN.PCM_ITS ---
History of Present Illness Date of Service: 10/18/21 Chief Complaint: Venous leg ulcer left lower extremity History of Wound: This is a 76-year-old white female who presents to the wound healing center today with complaint of nonhealing ulceration on her left lower extremity. She has a past medical history significant for chronic hypoxia on supplemental O2, COPD, type 2 diabetes mellitus, CHF, and osteoarthritis of the bilateral knees and GERD. The patient states that her wound initially occurred after tripping over her walker over a month ago. Since then she has followed up with her primary care and has been placed on Keflex and has been utilizing triple antibiotic ointment covering with gauze for the last couple weeks. She states that she has not been utilizing any compression. She recently completed Keflex. She denies any systemic or localized signs of infection at this time. Denies any prior cultures being taken and denies any previous arterial or venous studies. Denies any other aggravating alleviating factors. Past medical, family, and social history reviewed and not pertinent to the current visit and all other systems reviewed and negative with exception of those listed above. Subjective Subjective Kandi tolerated Snap vac treatment well. Denies fever, chills, increased drainage, increased pain or increased erythema. Objective Data Objective Data Vital Signs: Vital Signs Temp Pulse Resp BP 98 F 77 22 H 153/73 H 10/18/21 08:55 10/18/21 08:55 10/18/21 08:55 10/18/21 08:55 Oxygen Flow Rate (L/min) 2 Weight: 96.334 kg Body Mass Index (BMI) 36.4 Physical Exam Const alert, oriented x3 and no apparent distress General Appearance: cooperative and comfortable HEENT normocephalic and head/scalp atraumatic Resp normal respiratory effort Effort and Inspection: able to speak in complete sentences Cardio regular rate and regular rhythm Skin Wounds: wounds noted Wound Narrative: as in clinical panel Psych mental status grossly normal, thought process normal, cooperative and affect normal Debridement Note Debridement Note Wound debrided: LLE posterior Laterality: Left Type of Debridement: Excisional debridement Anesthesia Used: 4% Lidocaine Solution, 5% Lidocaine Gel, Cetacaine and - (1% l idocaine with epi) Depth: Down to and including healthy tissue and in the subcutaneous layer Percentage of wound debrided: 100 Instrument Used: 5mm curette Tissue Removed: yellow slough, devitalized tissue Severity: Fat Layer Exposed Amount of bleeding with debridement: Mild Bleeding Controlled with: Compression and gauze Patient tolerated procedure: Patient tolerated procedure well Post-Debridement Measurements and Additional Note: Post-Debridement Measurements/Treatment - Nurse 1 - General Ulcer Assessment Start: 10/07/21 09:12 Freq: Status: Active Protocol: CHING Activity Type Activity Date Activity User E-Sign Co-Sign Detail Recorded Client Recorded Date Recorded By Document 10/07/21 09:12 KR [id number] 10/07/21 09:14 KR Document 10/11/21 08:35 AK [id number] 10/11/21 08:46 AK Document 10/14/21 11:32 DL [id number] 10/14/21 11:50 DL Document 10/18/21 08:55 RB [id number] 10/18/21 09:00 RB Edit Result 10/18/21 08:55 RB (1) [id number] 10/18/21 09:06 RB (1) Is Patient Pain Free? Yes => No LLE - Description => Sharp,Burning, => Aching - Intensity => 7 - Duration (hours) => Acute - Pain Behavior => Irritability, => Withdrawal from => Touch - Pain Aggravating Factors => Exercise/Activity - Alleviating Factors/Interventions => Medication - Effectiveness of Alleviating Factor/ => Moderately Intervention => effective 10/07/21 10/11/21 10/14/21 09:12 08:35 11:32 - Today's Visit Information Type of service Nurse-only Follow-up Visit Nurse-only Visit (Physician/APPLIED PSYCHOLOGY TEACHER Visit ) Arrival Mode Ambulatory, Ambulatory, Walker Walker Transfer Assistance None Accompanied by daughter Patient Identification Verified (Name & Yes No Yes ) Patient Requires Transmission-Based No No Precautions Safety Precautions NA Height and Weight Body Mass Index (BMI) 36.4 36.4 36.4 BMI Classification Obese Obese Obese Vital Signs Temperature (97.8 F-99.1 F) 96.8 F L 96.9 F L 96.4 F L Temperature Source Temporal Temporal Temporal Pulse Rate (60-100) 77 91 69 Pulse Location Monitor Monitor Monitor Respiratory Rate (12-18) 20 H Respiratory rate source Observation O2 L/MIN (L/min) Blood Pressure (90/60-120/80) 137/60 H 130/88 H 150/72 H Blood Pressure Mean (mm Hg) 85 102 98 Source Monitor Monitor Monitor Position Sitting Blood Pressure Location Left Arm History Since Last Visit- (Skip if this is Patient's initial visit) Have you changed medications since your No No No last visit? Any new allergies or adverse reactions No No No Had a fall/change in ADL's that may No No No increase risk of falls Signs or symptoms of abuse and/or No No No neglect since last visit Have you been in the hospital since your No No No last visit? Has dressing in place as prescribed Yes Yes Yes Has compression in place as prescribed N/A N/A Yes Has offloadiing in place as prescribed N/A N/A N/A Experienced any changes in pain level or No No Yes management Left Footwear Regular Shoe Regular Shoe Regular Shoe Right Footwear Regular Shoe Regular Shoe Regular Shoe Pain Scale: 0-10 Numeric Is Patient Pain Free? Yes Yes Yes LLE -Description -Intensity -Duration (hours) -Pain Behavior -Pain Aggravating Factors -Alleviating Factors/Interventions -Effectiveness of Alleviating Factor/ Intervention 10/18/21 08:55 WC - Today's Visit Information Type of service Follow-up Visit (Physician/APPLIED PSYCHOLOGY TEACHER ) Arrival Mode Ambulatory, Walker Transfer Assistance Manual Accompanied by Patient Identification Verified (Name & Yes ) Patient Requires Transmission-Based No Precautions Safety Precautions Height and Weight Body Mass Index (BMI) 36.4 BMI Classification Obese Vital Signs Temperature (97.8 F-99.1 F) 98 F Temperature Source Temporal Pulse Rate (60-100) 77 Pulse Location Monitor Respiratory Rate (12-18) 22 H Respiratory rate source Observation O2 L/MIN (L/min) 2 Blood Pressure (90/60-120/80) 153/73 H Blood Pressure Mean (mm Hg) 99 Source Monitor Position Semi-Fowlers Blood Pressure Location Left Arm History Since Last Visit- (Skip if this is Patient's initial visit) Have you changed medications since your No last visit? Any new allergies or adverse reactions No Had a fall/change in ADL's that may No increase risk of falls Signs or symptoms of abuse and/or No neglect since last visit Have you been in the hospital since your No last visit? Has dressing in place as prescribed Yes Has compression in place as prescribed No Has offloadiing in place as prescribed No Experienced any changes in pain level or No management Left Footwear Right Footwear Pain Scale: 0-10 Numeric Is Patient Pain Free? No LLE -Description Sharp,Burning, Aching -Intensity 7 -Duration (hours) Acute -Pain Behavior Irritability, Withdrawal from Touch -Pain Aggravating Factors Exercise/ Activity -Alleviating Factors/Interventions Medication -Effectiveness of Alleviating Factor/ Moderately Intervention effective WC - Nurse 1 - General Ulcer Measurement Start: 10/07/21 09:12 Freq: Status: Active Protocol: Activity Type Activity Date Activity User E-Sign Co-Sign Detail Recorded Client Recorded Date Recorded By Document 10/11/21 08:35 AK [id number] 10/11/21 08:46 AK Document 10/14/21 11:32 DL [id number] 10/14/21 11:50 DL Document 10/18/21 08:55 RB [id number] 10/18/21 09:00 RB Edit Result 10/18/21 08:55 RB (1) [id number] 10/18/21 09:01 RB (1) Lower Limb Edema Present => Yes Left Calf (cm) => 42 Left Ankle (cm) => 23.5 10/11/21 10/14/21 10/18/21 08:35 11:32 08:55 Wound Center Nurse 1 #1 LLE Post -Combined with other wound No No -Current Size (cm) - Length 6.2 4.5 -Current Size (cm) - Width 2.8 2.5 -Current Size (cm) - Depth 0.5 0.6 -Total Square Cm 17.36 11.25 -Date of Last Picture (Recall this 10/11/21 field) -Photo Taken Yes No -Tunneling No No -Undermining/Tunneling No No -Circular Undermining No No -Change in Wound Grade/Stage No -Exudate Amt Large Medium -Exudate Type Serosanguineous Serosanguineous -Wound Margin Distinct, Distinct, Distinct, Outline Outline Outline Attached Attached Attached -Granulation Amt Medium (34-66%) Large (67-100%) Large (67-100%) -Granulation Quality [place] -Slough/Fibrin Yes Yes -Necrosis Amt Medium (34-66%) Small (1-33%) Medium (34-66%) -Necrotic Tissue Type Adherent Slough Adherent Slough Adherent Slough -Structure Exposed N/A N/A -Texture (Leticia-wound Skin Appearance) Assessed, Assessed, Scarring Scarring -Moisture (Leticia-wound Skin Appearance) Assessed Assessed -Color (Leticia-wound Skin Appearance) Assessed Erythema Assessed -Temperature (Leticia-wound Skin No Abnormality No Abnormality Appearance) (Pt Warm) (Pt Warm) -Tenderness on Palpation (Leticia-wound No Yes No Skin Appearance) -Ulcer Cleansing Wound Cleanser Soap and Water Wound Cleanser -Foul Odor after Cleansing No No No -Anesthetic Used 4% Lidocaine 4% Lidocaine Solution,5% Solution,5% Lidocaine Gel Lidocaine Gel Lower Limb Edema Present Yes Left Calf (cm) 42 Left Ankle (cm) 23.5 WC - Nurse 2 - General Ulcer CM Notes Start: 10/07/21 09:12 Freq: Status: Active Protocol: Activity Type Activity Date Activity User E-Sign Co-Sign Detail Recorded Client Recorded Date Recorded By Document 10/11/21 08:57 MW [id number] 10/11/21 09:31 MW Edit Result 10/11/21 08:57 MW (1) [id number] 10/11/21 10:08 MW Document 10/18/21 09:33 MW [id number] 10/18/21 09:52 MW (1) #1 LLE Post - Injectable Lidocaine w/ Epi (%) => 1 - Injectable Lidocaine w/ Epi (mls) => 13 10/11/21 10/18/21 08:57 09:33 Wound Center Nurse 2 #1 LLE Post -Time 09:01 09:35 -Correct Patient Yes Yes -Correct Side, Site, Position Yes Yes -Correct Procedure Yes Yes -Procedure Performed Yes Yes -Type of Procedure Debridement Debridement -Clinical Debridement Subcutaneous Subcutaneous -Tissue Removed Subcutaneous Subcutaneous -Post Debridement (cm) - Length 6.0 5.3 -Post Debridement (cm) - Width 2.8 2.5 -Post Debridement (cm) - Depth 0.5 0.4 -Total Square (Post) (cm) 16.80 13.25 -Area of Debridement (cm) - Length 6.0 5.3 -Area of Debridement (cm) - Width 2.8 2.5 -Total Square (Area) (cm) 16.80 13.25 -Tunneling No No -Undermining/Tunneling No -Circular Undermining No No -Wound/Ulcer Outcome Not Healed Not Healed -Ulcer Cleansing Rinsed/ Rinsed/ Irrigated with Irrigated with Saline Saline -Foul Odor after Cleansing No No -Bioengineered Tissue No No -Injectable Lidocaine w/ Epi (%) 1 1 -Injectable Lidocaine w/ Epi (mls) 13 6 -Bleeding Controlled with Pressure Pressure -Treatment Response Procedure Procedure Tolerated Well Tolerated Well -Offloading No No -Debridement - Subq, 1st 20sq cm Yes Yes Pain Scale: 0-10 Numeric Is Patient Pain Free? Yes Yes WC - Nurse 3 - General Ulcer D/C NN Start: 10/07/21 09:12 Freq: Status: Active Protocol: Activity Type Activity Date Activity User E-Sign Co-Sign Detail Recorded Client Recorded Date Recorded By Document 10/07/21 09:12 KR [id number] 10/07/21 09:14 KR Document 10/14/21 11:32 DL [id number] 10/14/21 11:50 DL Edit Result 10/14/21 11:32 DL (1) [id number] 10/15/21 07:12 PL Document 10/18/21 10:11 RB [id number] 10/18/21 10:13 RB (1) #1 LLE Post - NPWT Application Charge NPWT </= 50 sq cm => NPWT </= 50 sq cm ($) => (disp) ($) 10/07/21 10/14/21 10/18/21 09:12 11:32 10:11 Vital Signs Temperature (97.8 F-99.1 F) 96.8 F L 96.4 F L Temperature Source Temporal Temporal Pulse Rate (60-100) 77 69 Pulse Location Monitor Monitor Respiratory Rate (12-18) 20 H Respiratory rate source Observation Blood Pressure (90/60-120/80) 137/60 H 150/72 H Blood Pressure Mean (mm Hg) 85 98 Source Monitor Monitor Position Sitting Blood Pressure Location Left Arm Pain Scale: 0-10 Numeric Is Patient Pain Free? Yes Yes No LLE -Description Sharp,Burning, Aching -Intensity 7 -Duration (hours) Acute -Alleviating Factors/Interventions Medication -Effectiveness of Alleviating Factor/ Moderately Intervention effective Wound Care Nurse 3 #1 LLE Post -Ulcer Cleansing Rinsed/ Soap and Water Wound Cleanser Irrigated with Saline -Foul Odor after Cleansing No -Negative Pressure Wound Therapy Continue Continue -Setting (mmHg) 125 125 -Negative Pressure is Continuous Continuous -Primary Dressing Applied Silvercel -Primary Dressing Covered/Secured with Dry Gauze,Dry Gauze & Roll Gauze,Secured with Tape -Other Covering juvencio -NPWT Application Charge NPWT </= 50 sq NPWT & cm (disp) ($) Debridement (nc ) -Silvercel 1 Left -Compression Wrap Juvencio Wrap Juvencio Wrap -Other juvencio Treatment Response Procedure Procedure Tolerated Well Tolerated Well WC - Visit Discharge Discharge Condition Stable Stable Ambulatory Status Ambulatory, Walker Ambulatory, Walker Walker Transportation Private Auto Private Auto Private Auto Accompanied by daughter Medication Reconcilliation completed & No provided to patient/care provider Clinical Summary of Care Provided Yes Notes: Dressing snap vac applied per applied at [facility] 125mm/hg today in clinic . Pt and Family reminded to use Silvercell if Snap Vac loses suction again before next appt. Assessment/Plan Assessment/Plan (1) Venous stasis ulcer of left lower leg with edema of left lower leg: CODE(S): I83.029 - Varicose veins of left lower extremity with ulcer of unspecified site; I83.892 - Varicose veins of left lower extremity with other complications; L97.929 - Non-pressure chronic ulcer of unspecified part of left lower leg with unspecified severity; R60.9 - Edema, unspecified (2) Left knee DJD: CODE(S): M17.12 - Unilateral primary osteoarthritis, left knee QUALIFIERS: Osteoarthritis type: primary Qualified Code(s): M17.12 - Unilateral primary osteoarthritis, left knee (3) Right knee DJD: CODE(S): M17.11 - Unilateral primary osteoarthritis, right knee QUALIFIERS: Osteoarthritis type: primary Qualified Code(s): M17.11 - Unilateral primary osteoarthritis, right knee (4) Restless leg syndrome: CODE(S): G25.81 - Restless legs syndrome (5) Gastroesophageal reflux disease: CODE(S): K21.9 - Gastro-esophageal reflux disease without esophagitis QUALIFIERS: Esophagitis presence: esophagitis presence not specified Qualified Code(s): K21.9 - Gastro-esophageal reflux disease without esophagitis (6) Diabetes mellitus: CODE(S): E11.9 - Type 2 diabetes mellitus without complications QUALIFIERS: Diabetes mellitus type: type 2 Diabetes mellitus termite treater insulin use: without penitentiary use Diabetes mellitus complication status: with neurologic complications Diabetes mellitus complication detail: with polyneuropathy Qualified Code(s): E11.42 - Type 2 diabetes mellitus with diabetic polyneuropathy (7) Osteoarthritis: CODE(S): M19.90 - Unspecified osteoarthritis, unspecified site QUALIFIERS: Osteoarthritis location: multiple joints Osteoarthritis type: unspecified Qualified Code(s): M15.9 - Polyosteoarthritis, unspecified (8) Hypertension: CODE(S): I10 - Essential (primary) hypertension QUALIFIERS: Hypertension type: primary hypertension Qualified Code(s): I10 - Essential (primary) hypertension (9) Chronic obstructive pulmonary disease: CODE(S): J44.9 - Chronic obstructive pulmonary disease, unspecified QUALIFIERS: COPD type: unspecified COPD Qualified Code(s): J44.9 - Chronic obstructive pulmonary disease, unspecified (10) Debility: CODE(S): R53.81 - Other malaise (11) Essential hypertension: CODE(S): I10 - Essential (primary) hypertension PLAN: Debridement performed today in clinic as annotated above. At home wound-care instructions: Snap vac applied today to the wound/ulcer to help with heavy drainage and to encourage granulation of the ulcer. She will return to clinic on Thursday for change of Snap vac and if she has problems with the snap vac then she will use Silvercell as she was previously until she returns on Thursday. Compression: JUVENCIO compression wrap Off-loading: The patient was instructed to avoid pressure and friction on the affected areas. Reposition every 2 hours at minimum. Avoid prolonged standing and/or dangling of legs. When seated, feet should be elevated at chest level. Frequent ambulation is encouraged. Diet: Patient encouraged to increase protein intake while taking caution to avoid high carbohydrate and/or sugar intake. Patient is a former smoker Labs/cultures/imaging: Vascular studies ordered. Follow-up: Return to clinic in 1 week for re-evaluation. Return sooner or report to the emergency room should symptoms worsen, or new symptoms arise.
[2021-10-21 12:01] VITALS: BP 135/85; PULSE 74; RESP 18; TEMP 36.9; BMI 36.4
[2021-10-25 08:53] VITALS: BP 151/64; PULSE 66; RESP 18; TEMP 35.7; BMI 36.4
--- NOTE | 2021-10-25 13:40 | PN.PCM_ITS ---
History of Present Illness Date of Service: 10/25/21 Chief Complaint: Venous leg ulcer left lower extremity History of Wound: This is a 76-year-old white female who presents to the wound healing center today with complaint of nonhealing ulceration on her left lower extremity. She has a past medical history significant for chronic hypoxia on supplemental O2, COPD, type 2 diabetes mellitus, CHF, and osteoarthritis of the bilateral knees and GERD. The patient states that her wound initially occurred after tripping over her walker over a month ago. Since then she has followed up with her primary care and has been placed on Keflex and has been utilizing triple antibiotic ointment covering with gauze for the last couple weeks. She states that she has not been utilizing any compression. She recently completed Keflex. She denies any systemic or localized signs of infection at this time. Denies any prior cultures being taken and denies any previous arterial or venous studies. Denies any other aggravating alleviating factors. Past medical, family, and social history reviewed and not pertinent to the current visit and all other systems reviewed and negative with exception of those listed above. Subjective Subjective Kandi tolerated Snap vac treatment well. Denies fever, chills, increased drainage, increased pain or increased erythema. Objective Data Objective Data Vital Signs: Vital Signs Temp Pulse Resp BP 96.3 F L 66 18 151/64 H 10/25/21 08:53 10/25/21 08:53 10/25/21 08:53 10/25/21 08:53 Oxygen Flow Rate (L/min) 2 Oxygen Delivery Method Nasal Cannula Weight: 96.334 kg Body Mass Index (BMI) 36.4 Physical Exam Const alert, oriented x3 and no apparent distress General Appearance: cooperative and comfortable HEENT normocephalic and head/scalp atraumatic Resp normal respiratory effort Effort and Inspection: able to speak in complete sentences Cardio regular rate and regular rhythm Skin Wounds: wounds noted Wound Narrative: as in clinical panel Psych mental status grossly normal, thought process normal, cooperative and affect normal Debridement Note Debridement Note Wound debrided: Left LE posterior Laterality: Left Type of Debridement: Excisional debridement Anesthesia Used: 4% Lidocaine Solution, 5% Lidocaine Gel and Cetacaine Depth: Down to and including healthy tissue and in the subcutaneous layer Percentage of wound debrided: 100 Instrument Used: 5mm curette Tissue Removed: Yellow slough, devitalized tissue Severity: Fat Layer Exposed Amount of bleeding with debridement: Mild Bleeding Controlled with: Compression and gauze Patient tolerated procedure: Patient tolerated procedure well Post-Debridement Measurements and Additional Note: Post-Debridement Measurements/Treatment - Nurse 1 - General Ulcer Assessment Start: 10/07/21 09:12 Freq: Status: Active Protocol: CHING Activity Type Activity Date Activity User E-Sign Co-Sign Detail Recorded Client Recorded Date Recorded By Document 10/07/21 09:12 KR [id number] 10/07/21 09:14 KR Document 10/11/21 08:35 AK [id number] 10/11/21 08:46 AK Document 10/14/21 11:32 DL [id number] 10/14/21 11:50 DL Document 10/18/21 08:55 RB [id number] 10/18/21 09:00 RB Edit Result 10/18/21 08:55 RB (1) [id number] 10/18/21 09:06 RB Document 10/21/21 12:01 JF [id number] 10/21/21 12:03 JF Document 10/25/21 08:53 RB [id number] 10/25/21 08:58 RB (1) Is Patient Pain Free? Yes => No LLE - Description => Sharp,Burning, => Aching - Intensity => 7 - Duration (hours) => Acute - Pain Behavior => Irritability, => Withdrawal from => Touch - Pain Aggravating Factors => Exercise/Activity - Alleviating Factors/Interventions => Medication - Effectiveness of Alleviating Factor/ => Moderately Intervention => effective 10/07/21 10/11/21 10/14/21 09:12 08:35 11:32 - Today's Visit Information Type of service Nurse-only Follow-up Visit Nurse-only Visit (Physician/CARE ADMINISTRATIVE TECH Visit ) Arrival Mode Ambulatory, Ambulatory, Walker Walker Transfer Assistance None Accompanied by daughter Patient Identification Verified (Name & Yes No Yes ) Patient Requires Transmission-Based No No Precautions Safety Precautions NA Height and Weight Body Mass Index (BMI) 36.4 36.4 36.4 BMI Classification Obese Obese Obese Vital Signs Temperature (97.8 F-99.1 F) 96.8 F L 96.9 F L 96.4 F L Temperature Source Temporal Temporal Temporal Pulse Rate (60-100) 77 91 69 Pulse Location Monitor Monitor Monitor Respiratory Rate (12-18) 20 H Respiratory rate source Observation Oxygen Delivery Method O2 L/MIN (L/min) Blood Pressure (90/60-120/80) 137/60 H 130/88 H 150/72 H Blood Pressure Mean (mm Hg) 85 102 98 Source Monitor Monitor Monitor Position Sitting Blood Pressure Location Left Arm History Since Last Visit- (Skip if this is Patient's initial visit) Have you changed medications since your No No No last visit? Any new allergies or adverse reactions No No No Had a fall/change in ADL's that may No No No increase risk of falls Signs or symptoms of abuse and/or No No No neglect since last visit Have you been in the hospital since your No No No last visit? Has dressing in place as prescribed Yes Yes Yes Has compression in place as prescribed N/A N/A Yes Has offloadiing in place as prescribed N/A N/A N/A Experienced any changes in pain level or No No Yes management Left Footwear Regular Shoe Regular Shoe Regular Shoe Right Footwear Regular Shoe Regular Shoe Regular Shoe Pain Scale: 0-10 Numeric Is Patient Pain Free? Yes Yes Yes LLE -Description -Intensity -Duration (hours) -Pain Behavior -Pain Aggravating Factors -Alleviating Factors/Interventions -Effectiveness of Alleviating Factor/ Intervention 10/18/21 10/21/21 10/25/21 08:55 12:01 08:53 WC - Today's Visit Information Type of service Follow-up Visit Nurse-only Follow-up Visit (Physician/CARE ADMINISTRATIVE TECH Visit (Physician/CARE ADMINISTRATIVE TECH ) ) Arrival Mode Ambulatory, Ambulatory, Ambulatory, Walker Walker Walker Transfer Assistance Manual None Accompanied by Patient Identification Verified (Name & Yes Yes ) Patient Requires Transmission-Based No No No Precautions Safety Precautions Height and Weight Body Mass Index (BMI) 36.4 36.4 36.4 BMI Classification Obese Obese Obese Vital Signs Temperature (97.8 F-99.1 F) 98 F 98.4 F 96.3 F L Temperature Source Temporal Temporal Temporal Pulse Rate (60-100) 77 74 66 Pulse Location Monitor Monitor Monitor Respiratory Rate (12-18) 22 H 18 18 Respiratory rate source Observation Observation Observation Oxygen Delivery Method Nasal Cannula O2 L/MIN (L/min) 2 Blood Pressure (90/60-120/80) 153/73 H 135/85 H 151/64 H Blood Pressure Mean (mm Hg) 99 101 93 Source Monitor Monitor Monitor Position Semi-Fowlers Semi-Fowlers Semi-Fowlers Blood Pressure Location Left Arm Right Arm Left Arm History Since Last Visit- (Skip if this is Patient's initial visit) Have you changed medications since your No No last visit? Any new allergies or adverse reactions No No Had a fall/change in ADL's that may No No increase risk of falls Signs or symptoms of abuse and/or No No neglect since last visit Have you been in the hospital since your No No last visit? Has dressing in place as prescribed Yes Yes Has compression in place as prescribed No Yes Has offloadiing in place as prescribed No No Experienced any changes in pain level or No No management Left Footwear Regular Shoe Right Footwear Regular Shoe Pain Scale: 0-10 Numeric Is Patient Pain Free? No Yes Yes LLE -Description Sharp,Burning, Aching -Intensity 7 -Duration (hours) Acute -Pain Behavior Irritability, Withdrawal from Touch -Pain Aggravating Factors Exercise/ Activity -Alleviating Factors/Interventions Medication -Effectiveness of Alleviating Factor/ Moderately Intervention effective WC - Nurse 1 - General Ulcer Measurement Start: 10/07/21 09:12 Freq: Status: Active Protocol: Activity Type Activity Date Activity User E-Sign Co-Sign Detail Recorded Client Recorded Date Recorded By Document 10/11/21 08:35 AK [id number] 10/11/21 08:46 AK Document 10/14/21 11:32 DL [id number] 10/14/21 11:50 DL Document 10/18/21 08:55 RB [id number] 10/18/21 09:00 RB Edit Result 10/18/21 08:55 RB (1) [id number] 10/18/21 09:01 RB Document 10/21/21 12:01 JF [id number] 10/21/21 12:03 JF Document 10/25/21 08:53 RB [id number] 10/25/21 08:58 RB (1) Lower Limb Edema Present => Yes Left Calf (cm) => 42 Left Ankle (cm) => 23.5 10/11/21 10/14/21 10/18/21 08:35 11:32 08:55 Wound Center Nurse 1 #1 LLE Post -Combined with other wound No No -Current Size (cm) - Length 6.2 4.5 -Current Size (cm) - Width 2.8 2.5 -Current Size (cm) - Depth 0.5 0.6 -Total Square Cm 17.36 11.25 -Date of Last Picture (Recall this 10/11/21 field) -Photo Taken Yes No -Epithelialization -Tunneling No No -Undermining/Tunneling No No -Circular Undermining No No -Change in Wound Grade/Stage No -Exudate Amt Large Medium -Exudate Type Serosanguineous Serosanguineous -Wound Margin Distinct, Distinct, Distinct, Outline Outline Outline Attached Attached Attached -Granulation Amt Medium (34-66%) Large (67-100%) Large (67-100%) -Granulation Quality [place],Red Red [place] -Slough/Fibrin Yes Yes -Necrosis Amt Medium (34-66%) Small (1-33%) Medium (34-66%) -Necrotic Tissue Type Adherent Slough Adherent Slough Adherent Slough -Structure Exposed N/A N/A -Texture (Leticia-wound Skin Appearance) Assessed, Assessed, Scarring Scarring -Moisture (Leticia-wound Skin Appearance) Assessed Assessed -Color (Leticia-wound Skin Appearance) Assessed Erythema Assessed -Temperature (Leticia-wound Skin No Abnormality No Abnormality Appearance) (Pt Warm) (Pt Warm) -Tenderness on Palpation (Leticia-wound No Yes No Skin Appearance) -Ulcer Cleansing Wound Cleanser Soap and Water Wound Cleanser -Foul Odor after Cleansing No No No -Anesthetic Used 4% Lidocaine 4% Lidocaine Solution,5% Solution,5% Lidocaine Gel Lidocaine Gel Lower Limb Edema Present Yes Left Calf (cm) 42 Left Ankle (cm) 23.5 10/21/21 10/25/21 12:01 08:53 Wound Center Nurse 1 #1 LLE Post -Combined with other wound No No -Current Size (cm) - Length 5.4 5.2 -Current Size (cm) - Width 2.3 2.2 -Current Size (cm) - Depth 0.3 0.6 -Total Square Cm 12.42 11.44 -Date of Last Picture (Recall this field) -Photo Taken No -Epithelialization Small 1-33% -Tunneling No No -Undermining/Tunneling No No -Circular Undermining No No -Change in Wound Grade/Stage -Exudate Amt Large Medium -Exudate Type Serosanguineous Serosanguineous -Wound Margin Flat & Intact Distinct, Outline Attached -Granulation Amt Large (67-100%) Medium (34-66%) -Granulation Quality Red Red -Slough/Fibrin Yes Yes -Necrosis Amt Small (1-33%) Small (1-33%) -Necrotic Tissue Type Adherent Slough Adherent Slough -Structure Exposed N/A N/A -Texture (Leticia-wound Skin Appearance) Assessed Assessed, Localized Edema ,Scarring -Moisture (Leticia-wound Skin Appearance) Dry/Scaly Assessed -Color (Leticia-wound Skin Appearance) Assessed Assessed -Temperature (Leticia-wound Skin No Abnormality No Abnormality Appearance) (Pt Warm) (Pt Warm) -Tenderness on Palpation (Leticia-wound No No Skin Appearance) -Ulcer Cleansing Soap and Water Wound Cleanser -Foul Odor after Cleansing No -Anesthetic Used 4% Lidocaine Solution,5% Lidocaine Gel Lower Limb Edema Present Yes Yes Left Calf (cm) 42.2 45.8 Left Ankle (cm) 24.2 23.5 WC - Nurse 2 - General Ulcer CM Notes Start: 10/07/21 09:12 Freq: Status: Active Protocol: Activity Type Activity Date Activity User E-Sign Co-Sign Detail Recorded Client Recorded Date Recorded By Document 10/11/21 08:57 MW [id number] 10/11/21 09:31 MW Edit Result 10/11/21 08:57 MW (1) [id number] 10/11/21 10:08 MW Document 10/18/21 09:33 MW [id number] 10/18/21 09:52 MW Document 10/25/21 09:05 MW [id number] 10/25/21 09:19 MW (1) #1 LLE Post - Injectable Lidocaine w/ Epi (%) => 1 - Injectable Lidocaine w/ Epi (mls) => 13 10/11/21 10/18/21 10/25/21 08:57 09:33 09:05 Wound Center Nurse 2 #1 LLE Post -Time 09:01 09:35 09:05 -Correct Patient Yes Yes Yes -Correct Side, Site, Position Yes Yes Yes -Correct Procedure Yes Yes Yes -Procedure Performed Yes Yes Yes -Type of Procedure Debridement Debridement Debridement -Clinical Debridement Subcutaneous Subcutaneous Subcutaneous -Tissue Removed Subcutaneous Subcutaneous Subcutaneous -Post Debridement (cm) - Length 6.0 5.3 5.4 -Post Debridement (cm) - Width 2.8 2.5 2.9 -Post Debridement (cm) - Depth 0.5 0.4 0.3 -Total Square (Post) (cm) 16.80 13.25 15.66 -Area of Debridement (cm) - Length 6.0 5.3 5.4 -Area of Debridement (cm) - Width 2.8 2.5 2.9 -Total Square (Area) (cm) 16.80 13.25 15.66 -Tunneling No No No -Undermining/Tunneling No No -Circular Undermining No No No -Wound/Ulcer Outcome Not Healed Not Healed Not Healed -Ulcer Cleansing Rinsed/ Rinsed/ Rinsed/ Irrigated with Irrigated with Irrigated with Saline Saline Saline -Foul Odor after Cleansing No No No -Bioengineered Tissue No No No -Injectable Lidocaine w/ Epi (%) 1 1 -Injectable Lidocaine w/ Epi (mls) 13 6 -Bleeding Controlled with Pressure Pressure Pressure -Treatment Response Procedure Procedure Procedure Tolerated Well Tolerated Well Tolerated Well -Offloading No No No -Debridement - Subq, 1st 20sq cm Yes Yes Yes Pain Scale: 0-10 Numeric Is Patient Pain Free? Yes Yes Yes WC - Nurse 3 - General Ulcer D/C NN Start: 10/07/21 09:12 Freq: Status: Active Protocol: Activity Type Activity Date Activity User E-Sign Co-Sign Detail Recorded Client Recorded Date Recorded By Document 10/07/21 09:12 KR [id number] 10/07/21 09:14 KR Document 10/14/21 11:32 DL [id number] 10/14/21 11:50 DL Edit Result 10/14/21 11:32 DL (1) [id number] 10/15/21 07:12 PL Document 10/18/21 10:11 RB [id number] 10/18/21 10:13 RB Document 10/21/21 12:01 JF [id number] 10/21/21 12:03 JF Edit Result 10/21/21 12:01 JF (2) [id number] 10/22/21 07:23 PL Document 10/25/21 09:45 RB [id number] 10/25/21 09:46 RB (1) #1 LLE Post - NPWT Application Charge NPWT </= 50 sq cm => NPWT </= 50 sq cm ($) => (disp) ($) (2) #1 LLE Post - NPWT Application Charge NPWT </= 50 sq cm => NPWT </= 50 sq cm ($) => (disp) ($) 10/07/21 10/14/21 10/18/21 09:12 11:32 10:11 Vital Signs Temperature (97.8 F-99.1 F) 96.8 F L 96.4 F L Temperature Source Temporal Temporal Pulse Rate (60-100) 77 69 Pulse Location Monitor Monitor Respiratory Rate (12-18) 20 H Respiratory rate source Observation Oxygen Delivery Method Blood Pressure (90/60-120/80) 137/60 H 150/72 H Blood Pressure Mean (mm Hg) 85 98 Source Monitor Monitor Position Sitting Blood Pressure Location Left Arm Pain Scale: 0-10 Numeric Is Patient Pain Free? Yes Yes No LLE -Description Sharp,Burning, Aching -Intensity 7 -Duration (hours) Acute -Alleviating Factors/Interventions Medication -Effectiveness of Alleviating Factor/ Moderately Intervention effective Wound Care Nurse 3 #1 LLE Post -Ulcer Cleansing Rinsed/ Soap and Water Wound Cleanser Irrigated with Saline -Foul Odor after Cleansing No -Negative Pressure Wound Therapy Continue Continue -Setting (mmHg) 125 125 -Negative Pressure is Continuous Continuous -Primary Dressing Applied Silvercel -Other Dressing -Primary Dressing Covered/Secured with Dry Gauze,Dry Gauze & Roll Gauze,Secured with Tape -Other Covering juvencio -NPWT Application Charge NPWT </= 50 sq NPWT & cm (disp) ($) Debridement (nc ) -Silvercel 1 Left -Compression Wrap Juvencio Wrap Juvencio Wrap -Other juvencio Treatment Response Procedure Procedure Tolerated Well Tolerated Well WC - Visit Discharge Discharge Condition Stable Stable Ambulatory Status Ambulatory, Walker Ambulatory, Walker Walker Transportation Private Auto Private Auto Private Auto Accompanied by daughter Medication Reconcilliation completed & No provided to patient/care provider Clinical Summary of Care Provided Yes Notes: Dressing snap vac applied per applied at [facility] 125mm/hg today in clinic . Pt and Family reminded to use Silvercell if Snap Vac loses suction again before next appt. 10/21/21 10/25/21 12:01 09:45 Vital Signs Temperature (97.8 F-99.1 F) 98.4 F Temperature Source Temporal Pulse Rate (60-100) 74 Pulse Location Monitor Respiratory Rate (12-18) 18 Respiratory rate source Observation Oxygen Delivery Method Nasal Cannula Blood Pressure (90/60-120/80) 135/85 H Blood Pressure Mean (mm Hg) 101 Source Monitor Position Semi-Fowlers Blood Pressure Location Right Arm Pain Scale: 0-10 Numeric Is Patient Pain Free? Yes Yes LLE -Description -Intensity -Duration (hours) -Alleviating Factors/Interventions -Effectiveness of Alleviating Factor/ Intervention Wound Care Nurse 3 #1 LLE Post -Ulcer Cleansing Soap and Water Rinsed/ Irrigated with Saline -Foul Odor after Cleansing No -Negative Pressure Wound Therapy Start Continue -Setting (mmHg) 125 125 -Negative Pressure is Continuous Continuous -Primary Dressing Applied -Other Dressing snap vac -Primary Dressing Covered/Secured with -Other Covering -NPWT Application Charge NPWT </= 50 sq NPWT & cm (disp) ($) Debridement (nc ) -Silvercel Left -Compression Wrap Juvencio Wrap -Other juvencio Treatment Response Procedure Tolerated Well WC - Visit Discharge Discharge Condition Stable Stable Ambulatory Status Ambulatory, Ambulatory, Walker Walker Transportation Private Auto Private Auto Accompanied by SISTER IN LAW Medication Reconcilliation completed & No provided to patient/care provider Clinical Summary of Care Provided Yes Notes: Assessment/Plan Assessment/Plan (1) Venous stasis ulcer of left lower leg with edema of left lower leg: CODE(S): I83.029 - Varicose veins of left lower extremity with ulcer of unspecified site; I83.892 - Varicose veins of left lower extremity with other complications; L97.929 - Non-pressure chronic ulcer of unspecified part of left lower leg with unspecified severity; R60.9 - Edema, unspecified (2) Left knee DJD: CODE(S): M17.12 - Unilateral primary osteoarthritis, left knee QUALIFIERS: Osteoarthritis type: primary Qualified Code(s): M17.12 - Unilateral primary osteoarthritis, left knee (3) Right knee DJD: CODE(S): M17.11 - Unilateral primary osteoarthritis, right knee QUALIFIERS: Osteoarthritis type: primary Qualified Code(s): M17.11 - Unilateral primary osteoarthritis, right knee (4) Restless leg syndrome: CODE(S): G25.81 - Restless legs syndrome (5) Gastroesophageal reflux disease: CODE(S): K21.9 - Gastro-esophageal reflux disease without esophagitis QUALIFIERS: Esophagitis presence: esophagitis presence not specified Qualified Code(s): K21.9 - Gastro-esophageal reflux disease without esophagitis (6) Diabetes mellitus: CODE(S): E11.9 - Type 2 diabetes mellitus without complications QUALIFIERS: Diabetes mellitus type: type 2 Diabetes mellitus correction insulin use: without correction use Diabetes mellitus complication status: with neurologic complications Diabetes mellitus complication detail: with polyneuropathy Qualified Code(s): E11.42 - Type 2 diabetes mellitus with diabetic polyneuropathy (7) Osteoarthritis: CODE(S): M19.90 - Unspecified osteoarthritis, unspecified site QUALIFIERS: Osteoarthritis location: multiple joints Osteoarthritis type: unspecified Qualified Code(s): M15.9 - Polyosteoarthritis, unspecified (8) Hypertension: CODE(S): I10 - Essential (primary) hypertension QUALIFIERS: Hypertension type: primary hypertension Qualified Code(s): I10 - Essential (primary) hypertension (9) Chronic obstructive pulmonary disease: CODE(S): J44.9 - Chronic obstructive pulmonary disease, unspecified QUALIFIERS: COPD type: unspecified COPD Qualified Code(s): J44.9 - Chronic obstructive pulmonary disease, unspecified (10) Debility: CODE(S): R53.81 - Other malaise (11) Essential hypertension: CODE(S): I10 - Essential (primary) hypertension PLAN: Debridement performed today in clinic as annotated above. At home wound-care instructions: Snap vac applied today to the wound/ulcer to help with heavy drainage and to encourage granulation of the ulcer. She will return to clinic on Thursday for change of Snap vac and if she has problems with the snap vac then she will use Silvercell as she was previously until she returns on and she will again have a change in the snap vac on Thursday. Due to the delayed healing and her diabetes, I feel that treatment with an advanced wound care product to expedite healing is medically necessary and we will apply for authorization of the use of Epifix to improve her wound healing and decrease the length of time of treatment of her chronic wound. Compression: JUVENCIO compression wrap Off-loading: The patient was instructed to avoid pressure and friction on the affected areas. Reposition every 2 hours at minimum. Avoid prolonged standing and/or dangling of legs. When seated, feet should be elevated at chest level. Frequent ambulation is encouraged. Diet: Patient encouraged to increase protein intake while taking caution to avoid high carbohydrate and/or sugar intake. Patient is a former smoker Labs/cultures/imaging: Vascular studies ordered but have not been completed by patient. Follow-up: Return to clinic in 2 weeks for re-evaluation. Return sooner or report to the emergency room should symptoms worsen, or new symptoms arise.
[2021-10-28 08:06] VITALS: BP 133/61; PULSE 74; TEMP 35.9; BMI 36.4
[2021-10-31 12:57] VITALS: BP 134/87; PULSE 67; RESP 20; TEMP 36.8; BMI 36.4
[2021-11-05 08:26] VITALS: BP 148/98; PULSE 76; BMI 36.4
== END 2021-11-05 23:59 | disposition home or self-care (01) ==
LOC: WC 08:30
PROVIDERS: PCP Family Medicine; Visit Provider Family Medicine
DX: I83.892 Varicose veins of left lower extremity with other complications (principal); L97.822 Non-pressure chronic ulcer of other part of left lower leg with fat layer exposed; J44.9 Chronic obstructive pulmonary disease, unspecified; I11.0 Hypertensive heart disease with heart failure; I50.9 Heart failure, unspecified; E11.42 Type 2 diabetes mellitus with diabetic polyneuropathy; M17.0 Bilateral primary osteoarthritis of knee; K21.9 Gastro-esophageal reflux disease without esophagitis; Z79.899 Other long term (current) drug therapy; Z87.891 Personal history of nicotine dependence
CPT/HCPCS: 11042; 97605; 97607; 97608; 99213; G0463

== ENCOUNTER 2021-11-29 09:00 | Outpatient (RCR) | payer MEDICARE, SELFPAY ==
[2021-11-06 01:06] VITALS: BP 148/98; PULSE 76; RESP 20; TEMP 36.8; BMI 36.4
[2021-11-08 08:45] VITALS: BP 128/74; PULSE 82; RESP 18; TEMP 36.1; BMI 36.4
--- NOTE | 2021-11-08 13:39 | PN.PCM_ITS ---
History of Present Illness Date of Service: 11/08/21 Chief Complaint: Venous leg ulcer left lower extremity History of Wound: This is a 76-year-old white female who presents to the wound healing center today with complaint of nonhealing ulceration on her left lower extremity. She has a past medical history significant for chronic hypoxia on supplemental O2, COPD, type 2 diabetes mellitus, CHF, and osteoarthritis of the bilateral knees and GERD. The patient states that her wound initially occurred after tripping over her walker over a month ago. Since then she has followed up with her primary care and has been placed on Keflex and has been utilizing triple antibiotic ointment covering with gauze for the last couple weeks. She states that she has not been utilizing any compression. She recently completed Keflex. She denies any systemic or localized signs of infection at this time. Denies any prior cultures being taken and denies any previous arterial or venous studies. Denies any other aggravating alleviating factors. Past medical, family, and social history reviewed and not pertinent to the current visit and all other systems reviewed and negative with exception of those listed above. Subjective Subjective Kandi tolerated Snap vac treatment well. Denies fever, chills, increased drainage, increased pain or increased erythema. Objective Data Objective Data Vital Signs: Vital Signs Temp Pulse Resp BP 97 F L 82 18 128/74 H 11/08/21 08:45 11/08/21 08:45 11/08/21 08:45 11/08/21 08:45 Oxygen Flow Rate (L/min) 2 Weight: 96.334 kg Body Mass Index (BMI) 36.4 Physical Exam Const alert, oriented x3 and no apparent distress General Appearance: cooperative and comfortable HEENT normocephalic and head/scalp atraumatic Resp normal respiratory effort Effort and Inspection: able to speak in complete sentences Cardio regular rate and regular rhythm Skin Wounds: wounds noted Wound Narrative: as in clinical panel Psych mental status grossly normal, thought process normal, cooperative and affect normal Debridement Note Debridement Note Wound debrided: LLE posterior Laterality: Left Type of Debridement: Excisional debridement Anesthesia Used: 4% Lidocaine Solution, 5% Lidocaine Gel and Cetacaine Depth: Down to and including healthy tissue and in the subcutaneous layer Percentage of wound debrided: 100 Instrument Used: 5mm curette Tissue Removed: Yellow slough, devitalized tissue Severity: Fat Layer Exposed Amount of bleeding with debridement: Mild Bleeding Controlled with: Compression and gauze Patient tolerated procedure: Patient tolerated procedure well Post-Debridement Measurements and Additional Note: Post-Debridement Measurements/Treatment - Nurse 1 - General Ulcer Assessment Start: 11/08/21 08:45 Freq: Status: Active Protocol: CHING Activity Type Activity Date Activity User E-Sign Co-Sign Detail Recorded Client Recorded Date Recorded By Document 11/08/21 08:45 CAROLINE [id number] 11/08/21 09:00 RB 11/08/21 08:45 - Today's Visit Information Type of service Follow-up Visit (Physician/JOB TRAINING SPECIALIST ) Arrival Mode Wheelchair Transfer Assistance None Patient Identification Verified (Name & Yes ) Patient Requires Transmission-Based No Precautions Height and Weight Body Mass Index (BMI) 36.4 BMI Classification Obese Vital Signs Temperature (97.8 F-99.1 F) 97 F L Temperature Source Temporal Pulse Rate (60-100) 82 Pulse Location Monitor Respiratory Rate (12-18) 18 Respiratory rate source Observation Blood Pressure (90/60-120/80) 128/74 H Blood Pressure Mean (mm Hg) 92 Source Monitor Position Semi-Fowlers Blood Pressure Location Left Arm History Since Last Visit- (Skip if this is Patient's initial visit) Have you changed medications since your No last visit? Any new allergies or adverse reactions No Had a fall/change in ADL's that may No increase risk of falls Signs or symptoms of abuse and/or No neglect since last visit Have you been in the hospital since your No last visit? Has dressing in place as prescribed Yes Has compression in place as prescribed No Has offloadiing in place as prescribed No Experienced any changes in pain level or No management Pain Scale: 0-10 Numeric Is Patient Pain Free? Yes - Nurse 1 - General Ulcer Measurement Start: 11/08/21 08:45 Freq: Status: Active Protocol: Activity Type Activity Date Activity User E-Sign Co-Sign Detail Recorded Client Recorded Date Recorded By Document 11/08/21 08:45 CAROLINE [id number] 11/08/21 09:00 RB 11/08/21 08:45 Wound Center Nurse 1 #1 LLE Post -Combined with other wound No -Current Size (cm) - Length 5.2 -Current Size (cm) - Width 2 -Current Size (cm) - Depth 0.3 -Total Square Cm 10.4 -Photo Taken Yes -Tunneling No -Undermining/Tunneling No -Circular Undermining No -Exudate Amt Medium -Exudate Type Serosanguineous -Wound Margin Distinct, Outline Attached -Granulation Amt Medium (34-66%) -Granulation Quality [place],Red -Slough/Fibrin Yes -Necrosis Amt Medium (34-66%) -Necrotic Tissue Type Adherent Slough -Structure Exposed N/A -Texture (Leticia-wound Skin Appearance) Assessed, Scarring -Moisture (Leticia-wound Skin Appearance) Assessed -Color (Leticia-wound Skin Appearance) Assessed -Temperature (Leticia-wound Skin No Abnormality Appearance) (Pt Warm) -Tenderness on Palpation (Leticia-wound No Skin Appearance) -Ulcer Cleansing Wound Cleanser -Foul Odor after Cleansing No -Anesthetic Used 4% Lidocaine Solution,5% Lidocaine Gel Lower Limb Edema Present Yes Left Calf (cm) 42 Left Ankle (cm) 23 WC - Nurse 2 - General Ulcer CM Notes Start: 11/08/21 08:45 Freq: Status: Active Protocol: Activity Type Activity Date Activity User E-Sign Co-Sign Detail Recorded Client Recorded Date Recorded By Document 11/08/21 09:06 MW [id number] 11/08/21 09:14 MW 11/08/21 09:06 Wound Center Nurse 2 #1 LLE Post -Time 09:06 -Correct Patient Yes -Correct Side, Site, Position Yes -Correct Procedure Yes -Procedure Performed Yes -Type of Procedure Debridement -Clinical Debridement Subcutaneous -Tissue Removed Subcutaneous -Post Debridement (cm) - Length 4.6 -Post Debridement (cm) - Width 2.3 -Post Debridement (cm) - Depth 0.2 -Total Square (Post) (cm) 10.58 -Area of Debridement (cm) - Length 4.6 -Area of Debridement (cm) - Width 2.3 -Total Square (Area) (cm) 10.58 -Tunneling No -Undermining/Tunneling No -Circular Undermining No -Wound/Ulcer Outcome Not Healed -Ulcer Cleansing Rinsed/ Irrigated with Saline -Foul Odor after Cleansing No -Bioengineered Tissue No -Bleeding Controlled with Pressure -Treatment Response Procedure Tolerated Well -Offloading No -Debridement - Subq, 1st 20sq cm Yes Pain Scale: 0-10 Numeric Is Patient Pain Free? Yes - Nurse 3 - General Ulcer D/C NN Start: 11/08/21 08:45 Freq: Status: Active Protocol: Activity Type Activity Date Activity User E-Sign Co-Sign Detail Recorded Client Recorded Date Recorded By Document 11/08/21 09:20 RB [id number] 11/08/21 09:22 CAROLINE 11/08/21 09:20 Wound Care Nurse 3 #1 LLE Post -Negative Pressure Wound Therapy Continue -Setting (mmHg) 125 -Negative Pressure is Continuous -NPWT Application Charge NPWT & Debridement (nc ) Left -Other timmy Treatment Response Procedure Tolerated Well Pain Scale: 0-10 Numeric Is Patient Pain Free? No WC - Visit Discharge Discharge Condition Stable Ambulatory Status Wheelchair Transportation Private Auto Medication Reconcilliation completed & No provided to patient/care provider Clinical Summary of Care Provided Yes Assessment/Plan Assessment/Plan (1) Venous stasis ulcer of left lower leg with edema of left lower leg: CODE(S): I83.029 - Varicose veins of left lower extremity with ulcer of unspecified site; I83.892 - Varicose veins of left lower extremity with other complications; L97.929 - Non-pressure chronic ulcer of unspecified part of left lower leg with unspecified severity; R60.9 - Edema, unspecified (2) Diabetes mellitus: CODE(S): E11.9 - Type 2 diabetes mellitus without complications QUALIFIERS: Diabetes mellitus type: type 2 Diabetes mellitus correction insulin use: without correction use Diabetes mellitus complication status: with neurologic complications Diabetes mellitus complication detail: with polyneuropathy Qualified Code(s): E11.42 - Type 2 diabetes mellitus with diabetic polyneuropathy (3) Hypertension: CODE(S): I10 - Essential (primary) hypertension QUALIFIERS: Hypertension type: primary hypertension Qualified Code(s): I10 - Essential (primary) hypertension (4) Essential hypertension: CODE(S): I10 - Essential (primary) hypertension (5) Debility: CODE(S): R53.81 - Other malaise (6) Chronic obstructive pulmonary disease: CODE(S): J44.9 - Chronic obstructive pulmonary disease, unspecified QUALIFIERS: COPD type: unspecified COPD Qualified Code(s): J44.9 - Chronic obstructive pulmonary disease, unspecified PLAN: Debridement performed today in clinic as annotated above. At home wound-care instructions: Snap vac applied today to the wound/ulcer to help with heavy drainage and to encourage granulation of the ulcer. She will return Thursday. If problems with wound vac would dress with Silvercell and gauze. Due to the delayed healing and her diabetes, I feel that treatment with an advanced wound care product to expedite healing is medically necessary and we will apply for authorization of the use of Epifix to improve her wound healing and decrease the length of time of treatment of her chronic wound. Compression: TIMMY compression wrap Off-loading: The patient was instructed to avoid pressure and friction on the affected areas. Reposition every 2 hours at minimum. Avoid prolonged standing and/or dangling of legs. When seated, feet should be elevated at chest level. Frequent ambulation is encouraged. Diet: Patient encouraged to increase protein intake while taking caution to avoid high carbohydrate and/or sugar intake. Patient is a former smoker Labs/cultures/imaging: Vascular studies ordered but have not been completed by patient. Follow-up: Return to clinic in 1 week for re-evaluation. Return sooner or report to the emergency room should symptoms worsen, or new symptoms arise.
[2021-11-15 08:28] VITALS: BP 178/77; PULSE 59; RESP 20; TEMP 36.1; BMI 36.4
--- NOTE | 2021-11-15 10:22 | PCM.WC.PN ---
History of Present Illness Date of Service: 11/15/21 Chief Complaint: Venous leg ulcer left lower extremity History of Wound: This is a 76-year-old white female who presents to the wound healing center today with complaint of nonhealing ulceration on her left lower extremity. She has a past medical history significant for chronic hypoxia on supplemental O2, COPD, type 2 diabetes mellitus, CHF, and osteoarthritis of the bilateral knees and GERD. The patient states that her wound initially occurred after tripping over her walker over a month ago. Since then she has followed up with her primary care and has been placed on Keflex and has been utilizing triple antibiotic ointment covering with gauze for the last couple weeks. She states that she has not been utilizing any compression. She recently completed Keflex. She denies any systemic or localized signs of infection at this time. Denies any prior cultures being taken and denies any previous arterial or venous studies. Denies any other aggravating alleviating factors. Past medical, family, and social history reviewed and not pertinent to the current visit and all other systems reviewed and negative with exception of those listed above. Subjective Subjective Kandi tolerated Snap vac treatment well. Denies fever, chills, increased drainage, increased pain or increased erythema. Objective Data Objective Data Vital Signs: Vital Signs Temp Pulse Resp BP 97 F L 59 L 20 H 178/77 H 11/15/21 08:28 11/15/21 08:28 11/15/21 08:28 11/15/21 08:28 Oxygen Flow Rate (L/min) 2 Weight: 96.334 kg Body Mass Index (BMI) 36.4 Physical Exam Const alert, oriented x3 and no apparent distress General Appearance: cooperative and comfortable HEENT normocephalic and head/scalp atraumatic Resp normal respiratory effort Effort and Inspection: able to speak in complete sentences Cardio regular rate and regular rhythm Skin Wounds: wounds noted Wound Narrative: as in clinical panel Psych mental status grossly normal, thought process normal, cooperative and affect normal Debridement Note Debridement Note Wound debrided: Left LE posterior Laterality: Left Type of Debridement: Excisional debridement Anesthesia Used: 4% Lidocaine Solution, 5% Lidocaine Gel and Cetacaine Depth: Down to and including healthy tissue and in the subcutaneous layer Percentage of wound debrided: 100 Instrument Used: 5mm curette Tissue Removed: Yellow slough, devitalized tissue Severity: Fat Layer Exposed Amount of bleeding with debridement: Mild Bleeding Controlled with: Compression and gauze Patient tolerated procedure: Patient tolerated procedure well Post-Debridement Measurements and Additional Note: Post-Debridement Measurements/Treatment DASH - Nurse 1 - General Ulcer Assessment Start: 11/08/21 08:45 Freq: Status: Active Protocol: CHING Activity Type Activity Date Activity User E-Sign Co-Sign Detail Recorded Client Recorded Date Recorded By Document 11/08/21 08:45 RB [id number] 11/08/21 09:00 RB Document 11/15/21 08:28 DL [id number] 11/15/21 08:36 DL 11/08/21 11/15/21 08:45 08:28 WC - Today's Visit Information Type of service Follow-up Visit Follow-up Visit (Physician/TRAFFIC II MANAGER (Physician/TRAFFIC II MANAGER ) ) Arrival Mode Wheelchair Ambulatory, Walker Transfer Assistance None None Patient Identification Verified (Name & Yes Yes ) Patient Requires Transmission-Based No Precautions Finger Stick Blood Sugar(mg/dl) (if not checked indicated): Blood Sugar Stated by Patient Height and Weight Body Mass Index (BMI) 36.4 36.4 BMI Classification Obese Obese Vital Signs Temperature (97.8 F-99.1 F) 97 F L 97 F L Temperature Source Temporal Temporal Pulse Rate (60-100) 82 59 L Pulse Location Monitor Monitor Respiratory Rate (12-18) 18 20 H Respiratory rate source Observation Observation Blood Pressure (90/60-120/80) 128/74 H 178/77 H Blood Pressure Mean (mm Hg) 92 110 Source Monitor Monitor Position Semi-Fowlers Blood Pressure Location Left Arm History Since Last Visit- (Skip if this is Patient's initial visit) Have you changed medications since your No No last visit? Any new allergies or adverse reactions No No Had a fall/change in ADL's that may No No increase risk of falls Signs or symptoms of abuse and/or No No neglect since last visit Have you been in the hospital since your No No last visit? Has dressing in place as prescribed Yes Yes Has compression in place as prescribed No Yes Has offloadiing in place as prescribed No N/A Experienced any changes in pain level or No No management Left Footwear Regular Shoe Right Footwear Regular Shoe Pain Scale: 0-10 Numeric Is Patient Pain Free? Yes Yes - Nurse 1 - General Ulcer Measurement Start: 11/08/21 08:45 Freq: Status: Active Protocol: Activity Type Activity Date Activity User E-Sign Co-Sign Detail Recorded Client Recorded Date Recorded By Document 11/08/21 08:45 RB [id number] 11/08/21 09:00 RB Document 11/15/21 08:28 DL [id number] 11/15/21 08:36 DL 11/08/21 11/15/21 08:45 08:28 Wound Center Nurse 1 #1 LLE Post -Combined with other wound No -Current Size (cm) - Length 5.2 4.6 -Current Size (cm) - Width 2 2 -Current Size (cm) - Depth 0.3 0.3 -Total Square Cm 10.4 9.2 -Photo Taken Yes Yes -Tunneling No -Undermining/Tunneling No -Circular Undermining No -Exudate Amt Medium Medium -Exudate Type Serosanguineous Serosanguineous -Wound Margin Distinct, Distinct, Outline Outline Attached Attached -Granulation Amt Medium (34-66%) Large (67-100%) -Granulation Quality [place],Red Red -Slough/Fibrin Yes -Necrosis Amt Medium (34-66%) Small (1-33%) -Necrotic Tissue Type Adherent Slough Adherent Slough -Structure Exposed N/A N/A -Texture (Leticia-wound Skin Appearance) Assessed, Scarring Scarring -Moisture (Leticia-wound Skin Appearance) Assessed No Abnormality -Color (Leticia-wound Skin Appearance) Assessed No Abnormality -Temperature (Leticia-wound Skin No Abnormality No Abnormality Appearance) (Pt Warm) (Pt Warm) -Tenderness on Palpation (Leticia-wound No No Skin Appearance) -Ulcer Cleansing Wound Cleanser Soap and Water -Foul Odor after Cleansing No No -Anesthetic Used 4% Lidocaine 5% Lidocaine Solution,5% Gel Lidocaine Gel Lower Limb Edema Present Yes Left Calf (cm) 42 39.8 Left Ankle (cm) 23 26 WC - Nurse 2 - General Ulcer CM Notes Start: 11/08/21 08:45 Freq: Status: Active Protocol: Activity Type Activity Date Activity User E-Sign Co-Sign Detail Recorded Client Recorded Date Recorded By Document 11/08/21 09:06 MW [id number] 06/03/22 09:14 MW Document 11/15/21 08:50 MW [id number] 11/15/21 08:55 MW 11/08/21 11/15/21 09:06 08:50 Wound Center Nurse 2 #1 LLE Post -Time 09:06 08:51 -Correct Patient Yes Yes -Correct Side, Site, Position Yes Yes -Correct Procedure Yes Yes -Procedure Performed Yes Yes -Type of Procedure Debridement Debridement -Clinical Debridement Subcutaneous Subcutaneous -Tissue Removed Subcutaneous Subcutaneous -Post Debridement (cm) - Length 4.6 4.7 -Post Debridement (cm) - Width 2.3 2.4 -Post Debridement (cm) - Depth 0.2 0.2 -Total Square (Post) (cm) 10.58 11.28 -Area of Debridement (cm) - Length 4.6 4.7 -Area of Debridement (cm) - Width 2.3 2.4 -Total Square (Area) (cm) 10.58 11.28 -Tunneling No No -Undermining/Tunneling No No -Circular Undermining No No -Wound/Ulcer Outcome Not Healed Not Healed -Ulcer Cleansing Rinsed/ Rinsed/ Irrigated with Irrigated with Saline Saline -Foul Odor after Cleansing No No -Bioengineered Tissue No No -Bleeding Controlled with Pressure Pressure -Treatment Response Procedure Procedure Tolerated Well Tolerated Well -Offloading No No -Debridement - Subq, 1st 20sq cm Yes Yes Pain Scale: 0-10 Numeric Is Patient Pain Free? Yes Yes WC - Nurse 3 - General Ulcer D/C NN Start: 11/08/21 08:45 Freq: Status: Active Protocol: Activity Type Activity Date Activity User E-Sign Co-Sign Detail Recorded Client Recorded Date Recorded By Document 11/08/21 09:20 RB [id number] 11/08/21 09:22 RB Document 11/15/21 08:58 RB [id number] 11/15/21 08:59 RB Edit Result 11/15/21 08:58 RB (1) [id number] 11/15/21 09:11 RB (1) Left - Other => timmy 11/08/21 11/15/21 09:20 08:58 Wound Care Nurse 3 #1 LLE Post -Ulcer Cleansing Rinsed/ Irrigated with Saline -Negative Pressure Wound Therapy Continue Continue -Setting (mmHg) 125 125 -Negative Pressure is Continuous Continuous -Primary Dressing Applied Promogran -Primary Dressing Covered/Secured with Dry Gauze & Roll Gauze, Secured with Tape -NPWT Application Charge NPWT & NPWT & Debridement (nc Debridement (nc ) ) -Promogran 1 Left -Other timmy timmy Treatment Response Procedure Tolerated Well Pain Scale: 0-10 Numeric Is Patient Pain Free? No Yes WC - Visit Discharge Discharge Condition Stable Stable Ambulatory Status Wheelchair Ambulatory, Walker Transportation Private Auto Private Auto Medication Reconcilliation completed & No No provided to patient/care provider Clinical Summary of Care Provided Yes Yes Assessment/Plan Assessment/Plan (1) Venous stasis ulcer of left lower leg with edema of left lower leg: CODE(S): I83.029 - Varicose veins of left lower extremity with ulcer of unspecified site; I83.892 - Varicose veins of left lower extremity with other complications; L97.929 - Non-pressure chronic ulcer of unspecified part of left lower leg with unspecified severity; R60.9 - Edema, unspecified (2) Diabetes mellitus: CODE(S): E11.9 - Type 2 diabetes mellitus without complications QUALIFIERS: Diabetes mellitus type: type 2 Diabetes mellitus snf insulin use: without human geography instructor use Diabetes mellitus complication status: with neurologic complications Diabetes mellitus complication detail: with polyneuropathy Qualified Code(s): E11.42 - Type 2 diabetes mellitus with diabetic polyneuropathy (3) Hypertension: CODE(S): I10 - Essential (primary) hypertension QUALIFIERS: Hypertension type: primary hypertension Qualified Code(s): I10 - Essential (primary) hypertension (4) Essential hypertension: CODE(S): I10 - Essential (primary) hypertension (5) Debility: CODE(S): R53.81 - Other malaise (6) Chronic obstructive pulmonary disease: CODE(S): J44.9 - Chronic obstructive pulmonary disease, unspecified QUALIFIERS: COPD type: unspecified COPD Qualified Code(s): J44.9 - Chronic obstructive pulmonary disease, unspecified PLAN: Debridement performed today in clinic as annotated above. At home wound-care instructions: Snap vac applied today to the wound/ulcer to help with heavy drainage and to encourage granulation of the ulcer, Promogran applied to wound bed prior to Snap Vac. She will return Thursday. If problems with wound vac would dress with Silvercell and gauze. Due to the delayed healing and her diabetes, I feel that treatment with an advanced wound care product to expedite healing is medically necessary and we will apply for authorization of the use of Epifix to improve her wound healing and decrease the length of time of treatment of her chronic wound. This is still [id number] approval from insurance. Compression: TIMMY compression wrap Off-loading: The patient was instructed to avoid pressure and friction on the affected areas. Reposition every 2 hours at minimum. Avoid prolonged standing and/or dangling of legs. When seated, feet should be elevated at chest level. Frequent ambulation is encouraged. Diet: Patient encouraged to increase protein intake while taking caution to avoid high carbohydrate and/or sugar intake. Patient is a former smoker Labs/cultures/imaging: Vascular studies ordered but have not been completed by patient. Follow-up: Return to clinic in 1 week for re-evaluation. Return sooner or report to the emergency room should symptoms worsen, or new symptoms arise.
[2021-11-22 08:55] VITALS: BP 151/76; PULSE 70; RESP 18; TEMP 36.6; BMI 36.4
--- NOTE | 2021-11-22 11:52 | PCM.WC.PN ---
History of Present Illness Date of Service: 11/22/21 Chief Complaint: Venous leg ulcer left lower extremity History of Wound: This is a 76-year-old white female who presents to the wound healing center today with complaint of nonhealing ulceration on her left lower extremity. She has a past medical history significant for chronic hypoxia on supplemental O2, COPD, type 2 diabetes mellitus, CHF, and osteoarthritis of the bilateral knees and GERD. The patient states that her wound initially occurred after tripping over her walker over a month ago. Since then she has followed up with her primary care and has been placed on Keflex and has been utilizing triple antibiotic ointment covering with gauze for the last couple weeks. She states that she has not been utilizing any compression. She recently completed Keflex. She denies any systemic or localized signs of infection at this time. Denies any prior cultures being taken and denies any previous arterial or venous studies. Denies any other aggravating alleviating factors. Past medical, family, and social history reviewed and not pertinent to the current visit and all other systems reviewed and negative with exception of those listed above. Subjective Subjective Kandi tolerated Snap vac treatment well. Denies fever, chills, increased drainage, increased pain or increased erythema. Objective Data Objective Data Vital Signs: Vital Signs Temp Pulse Resp BP 97.8 F 70 18 151/76 H 11/22/21 08:55 11/22/21 08:55 11/22/21 08:55 11/22/21 08:55 Oxygen Flow Rate (L/min) 2 Weight: 96.334 kg Body Mass Index (BMI) 36.4 Physical Exam Const alert, oriented x3 and no apparent distress General Appearance: cooperative and comfortable HEENT normocephalic and head/scalp atraumatic Resp normal respiratory effort Effort and Inspection: able to speak in complete sentences Cardio regular rate and regular rhythm Skin Wounds: wounds noted Wound Narrative: as in clinical panel Psych mental status grossly normal, thought process normal, cooperative and affect normal Debridement Note Debridement Note Wound debrided: left lower leg posterior Laterality: Left Type of Debridement: Excisional debridement Anesthesia Used: 4% Lidocaine Solution and 5% Lidocaine Gel Depth: Down to and including healthy tissue and in the subcutaneous layer Percentage of wound debrided: 100 Instrument Used: 5mm curette Tissue Removed: Yellow slough, devitalized tissue Severity: Fat Layer Exposed Amount of bleeding with debridement: Mild Bleeding Controlled with: Compression and gauze Patient tolerated procedure: Patient tolerated procedure well Post-Debridement Measurements and Additional Note: Post-Debridement Measurements/Treatment WC - Nurse 1 - General Ulcer Assessment Start: 11/08/21 08:45 Freq: Status: Active Protocol: CHING Activity Type Activity Date Activity User E-sign Co-sign Detail Recorded Client Recorded Date Recorded By Document 11/08/21 08:45 RB [id number] 11/08/21 09:00 RB Document 11/15/21 08:28 DL [id number] 11/15/21 08:36 DL Document 11/22/21 08:55 RB [id number] 11/22/21 09:01 RB 11/08/21 11/15/21 11/22/21 08:45 08:28 08:55 WC - Today's Visit Information Type of service Follow-up Visit Follow-up Visit Follow-up Visit (Physician/RADIATION ONCOLOGY MANAGER (Physician/RADIATION ONCOLOGY MANAGER (Physician/RADIATION ONCOLOGY MANAGER ) ) ) Arrival Mode Wheelchair Ambulatory, Ambulatory, Walker Walker Transfer Assistance None None None Patient Identification Verified (Name & Yes Yes Yes ) Patient Requires Transmission-Based No No Precautions Finger Stick Blood Sugar(mg/dl) (if not checked indicated): Blood Sugar Stated by Patient Height and Weight Body Mass Index (BMI) 36.4 36.4 36.4 BMI Classification Obese Obese Obese Vital Signs Temperature (97.8 F-99.1 F) 97 F L 97 F L 97.8 F Temperature Source Temporal Temporal Temporal Pulse Rate (60-100) 82 59 L 70 Pulse Location Monitor Monitor Monitor Respiratory Rate (12-18) 18 20 H 18 Respiratory rate source Observation Observation Observation Blood Pressure (90/60-120/80) 128/74 H 178/77 H 151/76 H Blood Pressure Mean (mm Hg) 92 110 101 Source Monitor Monitor Monitor Position Semi-Fowlers Semi-Fowlers Blood Pressure Location Left Arm Left Arm History Since Last Visit- (Skip if this is Patient's initial visit) Have you changed medications since your No No No last visit? Any new allergies or adverse reactions No No No Had a fall/change in ADL's that may No No No increase risk of falls Signs or symptoms of abuse and/or No No No neglect since last visit Have you been in the hospital since your No No No last visit? Has dressing in place as prescribed Yes Yes Yes Has compression in place as prescribed No Yes Yes Has offloadiing in place as prescribed No N/A No Experienced any changes in pain level or No No No management Left Footwear Regular Shoe Right Footwear Regular Shoe Pain Scale: 0-10 Numeric Is Patient Pain Free? Yes Yes Yes WC - Nurse 1 - General Ulcer Measurement Start: 11/08/21 08:45 Freq: Status: Active Protocol: Activity Type Activity Date Activity User E-sign Co-sign Detail Recorded Client Recorded Date Recorded By Document 11/08/21 08:45 RB [id number] 11/08/21 09:00 RB Document 11/15/21 08:28 DL [id number] 11/15/21 08:36 DL Document 11/22/21 08:55 RB [id number] 11/22/21 09:01 RB 11/08/21 11/15/21 11/22/21 08:45 08:28 08:55 Wound Center Nurse 1 #1 LLE Post -Combined with other wound No No -Current Size (cm) - Length 5.2 4.6 4.8 -Current Size (cm) - Width 2 2 2.1 -Current Size (cm) - Depth 0.3 0.3 0.3 -Total Square Cm 10.4 9.2 10.08 -Photo Taken Yes Yes Yes -Tunneling No No -Undermining/Tunneling No No -Circular Undermining No No -Exudate Amt Medium Medium Medium -Exudate Type Serosanguineous Serosanguineous Serosanguineous -Wound Margin Distinct, Distinct, Thickened & Outline Outline Rolled Under Attached Attached -Granulation Amt Medium (34-66%) Large (67-100%) Medium (34-66%) -Granulation Quality [place],Red Red [place] -Slough/Fibrin Yes Yes -Necrosis Amt Medium (34-66%) Small (1-33%) Small (1-33%) -Necrotic Tissue Type Adherent Slough Adherent Slough Adherent Slough -Structure Exposed N/A N/A N/A -Texture (Leticia-wound Skin Appearance) Assessed, Scarring Assessed, Scarring Scarring -Moisture (Leticia-wound Skin Appearance) Assessed No Abnormality Assessed -Color (Leticia-wound Skin Appearance) Assessed No Abnormality Assessed -Temperature (Leticia-wound Skin No Abnormality No Abnormality No Abnormality Appearance) (Pt Warm) (Pt Warm) (Pt Warm) -Tenderness on Palpation (Leticia-wound No No No Skin Appearance) -Ulcer Cleansing Wound Cleanser Soap and Water Wound Cleanser -Foul Odor after Cleansing No No No -Anesthetic Used 4% Lidocaine 5% Lidocaine 4% Lidocaine Solution,5% Gel Solution,5% Lidocaine Gel Lidocaine Gel Lower Limb Edema Present Yes Yes Left Calf (cm) 42 39.8 46 Left Ankle (cm) 23 26 23.2 WC - Nurse 2 - General Ulcer CM Notes Start: 11/08/21 08:45 Freq: Status: Active Protocol: Activity Type Activity Date Activity User E-sign Co-sign Detail Recorded Client Recorded Date Recorded By Document 11/08/21 09:06 MW [id number] 11/08/21 09:14 MW Document 11/15/21 08:50 MW [id number] 11/15/21 08:55 MW Document 11/22/21 09:14 MW [id number] 11/22/21 09:31 MW 11/08/21 11/15/21 11/22/21 09:06 08:50 09:14 Wound Center Nurse 2 #1 LLE Post -Time 09:06 08:51 09:17 -Correct Patient Yes Yes Yes -Correct Side, Site, Position Yes Yes Yes -Correct Procedure Yes Yes Yes -Procedure Performed Yes Yes Yes -Type of Procedure Debridement Debridement Debridement -Clinical Debridement Subcutaneous Subcutaneous Subcutaneous -Tissue Removed Subcutaneous Subcutaneous Subcutaneous -Post Debridement (cm) - Length 4.6 4.7 5.0 -Post Debridement (cm) - Width 2.3 2.4 2.0 -Post Debridement (cm) - Depth 0.2 0.2 0.2 -Total Square (Post) (cm) 10.58 11.28 10.00 -Area of Debridement (cm) - Length 4.6 4.7 5.0 -Area of Debridement (cm) - Width 2.3 2.4 2.0 -Total Square (Area) (cm) 10.58 11.28 10.00 -Tunneling No No No -Undermining/Tunneling No No No -Circular Undermining No No No -Wound/Ulcer Outcome Not Healed Not Healed Not Healed -Ulcer Cleansing Rinsed/ Rinsed/ Rinsed/ Irrigated with Irrigated with Irrigated with Saline Saline Saline -Foul Odor after Cleansing No No No -Bioengineered Tissue No No Yes -Type of Bioengineered Tissue Epifix Mesh -Expiration Date 08/06/26 -Product Lot Number [id number] -Percent Used 100 -Lot number of Saline Used [id number] -Bleeding Controlled with Pressure Pressure Pressure -Treatment Response Procedure Procedure Procedure Tolerated Well Tolerated Well Tolerated Well -Offloading No No No -Debridement - Subq, 1st 20sq cm Yes Yes Yes -Debridement - Muscle / Fascia, 1st No 20sq cm -Apply Skin Sub - 1st 25 sq cm - Legs 1 -Epifix Mesh (per sq cm) 11 Pain Scale: 0-10 Numeric Is Patient Pain Free? Yes Yes Yes - Nurse 3 - General Ulcer D/C NN Start: 11/08/21 08:45 Freq: Status: Active Protocol: Activity Type Activity Date Activity User E-sign Co-sign Detail Recorded Client Recorded Date Recorded By Document 11/08/21 09:20 RB [id number] 11/08/21 09:22 RB Document 11/15/21 08:58 RB [id number] 11/15/21 08:59 RB Edit Result 11/15/21 08:58 RB (1) [id number] 11/15/21 09:11 RB (1) Left - Other => timmy 11/08/21 11/15/21 09:20 08:58 Wound Care Nurse 3 #1 LLE Post -Ulcer Cleansing Rinsed/ Irrigated with Saline -Negative Pressure Wound Therapy Continue Continue -Setting (mmHg) 125 125 -Negative Pressure is Continuous Continuous -Primary Dressing Applied Promogran -Primary Dressing Covered/Secured with Dry Gauze & Roll Gauze, Secured with Tape -NPWT Application Charge NPWT & NPWT & Debridement (nc Debridement (nc ) ) -Promogran 1 Left -Other timmy timmy Treatment Response Procedure Tolerated Well Pain Scale: 0-10 Numeric Is Patient Pain Free? No Yes WC - Visit Discharge Discharge Condition Stable Stable Ambulatory Status Wheelchair Ambulatory, Walker Transportation Private Auto Private Auto Medication Reconcilliation completed & No No provided to patient/care provider Clinical Summary of Care Provided Yes Yes Assessment/Plan Assessment/Plan (1) Venous stasis ulcer of left lower leg with edema of left lower leg: CODE(S): I83.029 - Varicose veins of left lower extremity with ulcer of unspecified site; I83.892 - Varicose veins of left lower extremity with other complications; L97.929 - Non-pressure chronic ulcer of unspecified part of left lower leg with unspecified severity; R60.9 - Edema, unspecified (2) Diabetes mellitus: CODE(S): E11.9 - Type 2 diabetes mellitus without complications QUALIFIERS: Diabetes mellitus type: type 2 Diabetes mellitus detention insulin use: without detention use Diabetes mellitus complication status: with neurologic complications Diabetes mellitus complication detail: with polyneuropathy Qualified Code(s): E11.42 - Type 2 diabetes mellitus with diabetic polyneuropathy (3) Hypertension: CODE(S): I10 - Essential (primary) hypertension QUALIFIERS: Hypertension type: primary hypertension Qualified Code(s): I10 - Essential (primary) hypertension (4) Essential hypertension: CODE(S): I10 - Essential (primary) hypertension (5) Debility: CODE(S): R53.81 - Other malaise (6) Chronic obstructive pulmonary disease: CODE(S): J44.9 - Chronic obstructive pulmonary disease, unspecified QUALIFIERS: COPD type: unspecified COPD Qualified Code(s): J44.9 - Chronic obstructive pulmonary disease, unspecified PLAN: Plan Debridement performed today in clinic as annotated above. At home wound-care instructions: Epifix #1 was applied today per stationary engineer apprentice guidelines to wound bed using 100% of product, layered, rehydrated with hydrogel and covered with adaptic touch and secured with steri-strips. She tolerated procedure well. Secondary dressing with Aquacel Extra applied and ABD and she was instructed to change the outer dressing if drainage comes through but not to disturb or remove adaotic touch/steristrips and to keep the dressings dry and intact and not to get the dressings wet. Due to the delayed healing and her diabetes, I feel that treatment with an advanced wound care product to expedite healing is medically necessary and we will apply for authorization of the use of Epifix to improve her wound healing and decrease the length of time of treatment of her chronic wound. This was approved and Epifix #1 applied today. Compression: TIMMY compression wrap Off-loading: The patient was instructed to avoid pressure and friction on the affected areas. Reposition every 2 hours at minimum. Avoid prolonged standing and/or dangling of legs. When seated, feet should be elevated at chest level. Frequent ambulation is encouraged. Diet: Patient encouraged to increase protein intake while taking caution to avoid high carbohydrate and/or sugar intake. Patient is a former smoker Labs/cultures/imaging: Vascular studies ordered but have not been completed by patient. Follow-up: Return to clinic in 1 week for re-evaluation. Return sooner or report to the emergency room should symptoms worsen, or new symptoms arise.
[2021-11-29 08:57] VITALS: BP 144/80; PULSE 81; RESP 18; TEMP 37.6; BMI 36.4
--- NOTE | 2021-11-29 12:45 | PN.PCM_ITS ---
History of Present Illness Date of Service: 11/29/21 Chief Complaint: Venous leg ulcer left lower extremity History of Wound: This is a 76-year-old white female who presents to the wound healing center today with complaint of nonhealing ulceration on her left lower extremity. She has a past medical history significant for chronic hypoxia on supplemental O2, COPD, type 2 diabetes mellitus, CHF, and osteoarthritis of the bilateral knees and GERD. The patient states that her wound initially occurred after tripping over her walker over a month ago. Since then she has followed up with her primary care and has been placed on Keflex and has been utilizing triple antibiotic ointment covering with gauze for the last couple weeks. She states that she has not been utilizing any compression. She recently completed Keflex. She denies any systemic or localized signs of infection at this time. Denies any prior cultures being taken and denies any previous arterial or venous studies. Denies any other aggravating alleviating factors. Past medical, family, and social history reviewed and not pertinent to the current visit and all other systems reviewed and negative with exception of those listed above. Subjective Subjective Kandi tolerated Epifix treatment well. Denies fever, chills, increased drainage, increased pain or increased erythema. Objective Data Objective Data Vital Signs: Vital Signs Temp Pulse Resp BP 99.6 F H 81 18 144/80 H 11/29/21 08:57 11/29/21 08:57 11/29/21 08:57 11/29/21 08:57 Oxygen Flow Rate (L/min) 2 Weight: 96.334 kg Body Mass Index (BMI) 36.4 Physical Exam Const alert, oriented x3 and no apparent distress General Appearance: cooperative and comfortable HEENT normocephalic and head/scalp atraumatic Resp normal respiratory effort Effort and Inspection: able to speak in complete sentences Cardio regular rate and regular rhythm Skin Wounds: wounds noted Wound Narrative: as in clinical panel Psych mental status grossly normal, thought process normal, cooperative and affect normal Debridement Note Debridement Note Wound debrided: Left LE posterior Laterality: Left Type of Debridement: Excisional debridement Anesthesia Used: 4% Lidocaine Solution, 5% Lidocaine Gel and Cetacaine Depth: Down to and including healthy tissue and in the subcutaneous layer Percentage of wound debrided: 100 Instrument Used: 5mm curette Tissue Removed: Yellow slough, devitalized tissue Severity: Fat Layer Exposed Amount of bleeding with debridement: Mild Bleeding Controlled with: Compression and gauze Patient tolerated procedure: Patient tolerated procedure well Post-Debridement Measurements and Additional Note: Post-Debridement Measurements/Treatment WC - Nurse 1 - General Ulcer Assessment Start: 11/08/21 08:45 Freq: Status: Active Protocol: CHING Activity Type Activity Date Activity User E-sign Co-sign Detail Recorded Client Recorded Date Recorded By Document 11/08/21 08:45 RB [id number] 11/08/21 09:00 RB Document 11/15/21 08:28 DL [id number] 11/15/21 08:36 DL Document 11/22/21 08:55 RB [id number] 11/22/21 09:01 RB Document 11/29/21 08:57 DL [id number] 11/29/21 09:05 DL 11/08/21 11/15/21 11/22/21 08:45 08:28 08:55 - Today's Visit Information Type of service Follow-up Visit Follow-up Visit Follow-up Visit (Physician/CLIENT APPLICATION SUPPORT ENGINEER (Physician/CLIENT APPLICATION SUPPORT ENGINEER (Physician/CLIENT APPLICATION SUPPORT ENGINEER ) ) ) Arrival Mode Wheelchair Ambulatory, Ambulatory, Walker Walker Transfer Assistance None None None Patient Identification Verified (Name & Yes Yes Yes ) Patient Requires Transmission-Based No No Precautions Finger Stick Blood Sugar(mg/dl) (if not checked indicated): Blood Sugar Stated by Patient Height and Weight Body Mass Index (BMI) 36.4 36.4 36.4 BMI Classification Obese Obese Obese Vital Signs Temperature (97.8 F-99.1 F) 97 F L 97 F L 97.8 F Temperature Source Temporal Temporal Temporal Pulse Rate (60-100) 82 59 L 70 Pulse Location Monitor Monitor Monitor Respiratory Rate (12-18) 18 20 H 18 Respiratory rate source Observation Observation Observation Blood Pressure (90/60-120/80) 128/74 H 178/77 H 151/76 H Blood Pressure Mean (mm Hg) 92 110 101 Source Monitor Monitor Monitor Position Semi-Fowlers Semi-Fowlers Blood Pressure Location Left Arm Left Arm History Since Last Visit- (Skip if this is Patient's initial visit) Have you changed medications since your No No No last visit? Any new allergies or adverse reactions No No No Had a fall/change in ADL's that may No No No increase risk of falls Signs or symptoms of abuse and/or No No No neglect since last visit Have you been in the hospital since your No No No last visit? Has dressing in place as prescribed Yes Yes Yes Has compression in place as prescribed No Yes Yes Has offloadiing in place as prescribed No N/A No Experienced any changes in pain level or No No No management Left Footwear Regular Shoe Right Footwear Regular Shoe Pain Scale: 0-10 Numeric Is Patient Pain Free? Yes Yes Yes 11/29/21 08:57 WC - Today's Visit Information Type of service Follow-up Visit (Physician/CLIENT APPLICATION SUPPORT ENGINEER ) Arrival Mode Ambulatory, Walker Transfer Assistance None Patient Identification Verified (Name & Yes ) Patient Requires Transmission-Based No Precautions Finger Stick Blood Sugar(mg/dl) (if indicated): Blood Sugar Height and Weight Body Mass Index (BMI) 36.4 BMI Classification Obese Vital Signs Temperature (97.8 F-99.1 F) 99.6 F H Temperature Source Temporal Pulse Rate (60-100) 81 Pulse Location Monitor Respiratory Rate (12-18) 18 Respiratory rate source Observation Blood Pressure (90/60-120/80) 144/80 H Blood Pressure Mean (mm Hg) 101 Source Monitor Position Blood Pressure Location History Since Last Visit- (Skip if this is Patient's initial visit) Have you changed medications since your No last visit? Any new allergies or adverse reactions No Had a fall/change in ADL's that may No increase risk of falls Signs or symptoms of abuse and/or No neglect since last visit Have you been in the hospital since your No last visit? Has dressing in place as prescribed Yes Has compression in place as prescribed Yes Has offloadiing in place as prescribed Yes Experienced any changes in pain level or No management Left Footwear Right Footwear Pain Scale: 0-10 Numeric Is Patient Pain Free? Yes - Nurse 1 - General Ulcer Measurement Start: 11/08/21 08:45 Freq: Status: Active Protocol: Activity Type Activity Date Activity User E-sign Co-sign Detail Recorded Client Recorded Date Recorded By Document 11/08/21 08:45 RB [id number] 11/08/21 09:00 RB Document 11/15/21 08:28 DL [id number] 11/15/21 08:36 DL Document 11/22/21 08:55 RB [id number] 11/22/21 09:01 RB Document 11/29/21 08:57 DL [id number] 11/29/21 09:05 DL 11/08/21 11/15/21 11/22/21 08:45 08:28 08:55 Wound Center Nurse 1 #1 LLE Post -Combined with other wound No No -Current Size (cm) - Length 5.2 4.6 4.8 -Current Size (cm) - Width 2 2 2.1 -Current Size (cm) - Depth 0.3 0.3 0.3 -Total Square Cm 10.4 9.2 10.08 -Photo Taken Yes Yes Yes -Tunneling No No -Undermining/Tunneling No No -Circular Undermining No No -Exudate Amt Medium Medium Medium -Exudate Type Serosanguineous Serosanguineous Serosanguineous -Wound Margin Distinct, Distinct, Thickened & Outline Outline Rolled Under Attached Attached -Granulation Amt Medium (34-66%) Large (67-100%) Medium (34-66%) -Granulation Quality [place],Red Red [place] -Slough/Fibrin Yes Yes -Necrosis Amt Medium (34-66%) Small (1-33%) Small (1-33%) -Necrotic Tissue Type Adherent Slough Adherent Slough Adherent Slough -Structure Exposed N/A N/A N/A -Texture (Leticia-wound Skin Appearance) Assessed, Scarring Assessed, Scarring Scarring -Moisture (Leticia-wound Skin Appearance) Assessed No Abnormality Assessed -Color (Leticia-wound Skin Appearance) Assessed No Abnormality Assessed -Temperature (Leticia-wound Skin No Abnormality No Abnormality No Abnormality Appearance) (Pt Warm) (Pt Warm) (Pt Warm) -Tenderness on Palpation (Leticia-wound No No No Skin Appearance) -Ulcer Cleansing Wound Cleanser Soap and Water Wound Cleanser -Foul Odor after Cleansing No No No -Anesthetic Used 4% Lidocaine 5% Lidocaine 4% Lidocaine Solution,5% Gel Solution,5% Lidocaine Gel Lidocaine Gel Lower Limb Edema Present Yes Yes Left Calf (cm) 42 39.8 46 Left Ankle (cm) 23 26 23.2 11/29/21 08:57 Wound Center Nurse 1 #1 LLE Post -Combined with other wound -Current Size (cm) - Length -Current Size (cm) - Width -Current Size (cm) - Depth -Total Square Cm -Photo Taken No -Tunneling -Undermining/Tunneling -Circular Undermining -Exudate Amt Medium -Exudate Type Serosanguineous -Wound Margin Distinct, Outline Attached -Granulation Amt Medium (34-66%) -Granulation Quality Red -Slough/Fibrin Yes -Necrosis Amt Small (1-33%) -Necrotic Tissue Type Adherent Slough -Structure Exposed N/A -Texture (Leticia-wound Skin Appearance) Scarring -Moisture (Leticia-wound Skin Appearance) No Abnormality -Color (Leticia-wound Skin Appearance) Hemosiderin Staining -Temperature (Leticia-wound Skin No Abnormality Appearance) (Pt Warm) -Tenderness on Palpation (Leticia-wound Skin Appearance) -Ulcer Cleansing Soap and Water -Foul Odor after Cleansing No -Anesthetic Used 5% Lidocaine Gel Lower Limb Edema Present Left Calf (cm) Left Ankle (cm) WC - Nurse 2 - General Ulcer CM Notes Start: 11/08/21 08:45 Freq: Status: Active Protocol: Activity Type Activity Date Activity User E-sign Co-sign Detail Recorded Client Recorded Date Recorded By Document 11/08/21 09:06 MW [id number] 11/08/21 09:14 MW Document 11/15/21 08:50 MW [id number] 11/15/21 08:55 MW Document 11/22/21 09:14 MW [id number] 11/22/21 09:31 MW Edit Result 11/22/21 09:14 MW (1) [id number] 11/25/21 07:02 PL Document 11/29/21 09:34 MW [id number] 11/29/21 09:47 MW (1) #1 LLE Post - Debridement - Subq, 1st 20sq cm Yes => No 11/08/21 11/15/21 11/22/21 09:06 08:50 09:14 Wound Center Nurse 2 #1 LLE Post -Time 09:06 08:51 09:17 -Correct Patient Yes Yes Yes -Correct Side, Site, Position Yes Yes Yes -Correct Procedure Yes Yes Yes -Procedure Performed Yes Yes Yes -Type of Procedure Debridement Debridement Debridement -Clinical Debridement Subcutaneous Subcutaneous Subcutaneous -Tissue Removed Subcutaneous Subcutaneous Subcutaneous -Post Debridement (cm) - Length 4.6 4.7 5.0 -Post Debridement (cm) - Width 2.3 2.4 2.0 -Post Debridement (cm) - Depth 0.2 0.2 0.2 -Total Square (Post) (cm) 10.58 11.28 10.00 -Area of Debridement (cm) - Length 4.6 4.7 5.0 -Area of Debridement (cm) - Width 2.3 2.4 2.0 -Total Square (Area) (cm) 10.58 11.28 10.00 -Tunneling No No No -Undermining/Tunneling No No No -Circular Undermining No No No -Wound/Ulcer Outcome Not Healed Not Healed Not Healed -Ulcer Cleansing Rinsed/ Rinsed/ Rinsed/ Irrigated with Irrigated with Irrigated with Saline Saline Saline -Foul Odor after Cleansing No No No -Bioengineered Tissue No No Yes -Type of Bioengineered Tissue Epifix Mesh -Expiration Date 08/06/26 -Product Lot Number [id number] -Percent Used 100 -Lot number of Saline Used [id number] -Bleeding Controlled with Pressure Pressure Pressure -Treatment Response Procedure Procedure Procedure Tolerated Well Tolerated Well Tolerated Well -Offloading No No No -Debridement - Subq, 1st 20sq cm Yes Yes No -Debridement - Muscle / Fascia, 1st No 20sq cm -Apply Skin Sub - 1st 25 sq cm - Legs 1 -Epifix Mesh (per sq cm) 11 Pain Scale: 0-10 Numeric Is Patient Pain Free? Yes Yes Yes 11/29/21 09:34 Wound Center Nurse 2 #1 LLE Post -Time 09:34 -Correct Patient Yes -Correct Side, Site, Position Yes -Correct Procedure Yes -Procedure Performed Yes -Type of Procedure Debridement -Clinical Debridement Subcutaneous -Tissue Removed Subcutaneous -Post Debridement (cm) - Length 3.3 -Post Debridement (cm) - Width 1.5 -Post Debridement (cm) - Depth 0.1 -Total Square (Post) (cm) 4.95 -Area of Debridement (cm) - Length 3.3 -Area of Debridement (cm) - Width 1.5 -Total Square (Area) (cm) 4.95 -Tunneling No -Undermining/Tunneling No -Circular Undermining No -Wound/Ulcer Outcome Not Healed -Ulcer Cleansing Rinsed/ Irrigated with Saline -Foul Odor after Cleansing No -Bioengineered Tissue No -Type of Bioengineered Tissue -Expiration Date -Product Lot Number -Percent Used -Lot number of Saline Used -Bleeding Controlled with Pressure -Treatment Response Procedure Tolerated Well -Offloading No -Debridement - Subq, 1st 20sq cm Yes -Debridement - Muscle / Fascia, 1st 20sq cm -Apply Skin Sub - 1st 25 sq cm - Legs -Epifix Mesh (per sq cm) Pain Scale: 0-10 Numeric Is Patient Pain Free? Yes - Nurse 3 - General Ulcer D/C NN Start: 11/08/21 08:45 Freq: Status: Active Protocol: Activity Type Activity Date Activity User E-sign Co-sign Detail Recorded Client Recorded Date Recorded By Document 11/08/21 09:20 RB [id number] 11/08/21 09:22 RB Document 11/15/21 08:58 RB [id number] 11/15/21 08:59 RB Edit Result 11/15/21 08:58 RB (1) [id number] 11/15/21 09:11 RB Document 11/29/21 09:55 DL [id number] 11/29/21 09:57 DL (1) Left - Other => juvencio 11/08/21 11/15/21 11/29/21 09:20 08:58 09:55 Wound Care Nurse 3 #1 LLE Post -Ulcer Cleansing Rinsed/ Irrigated with Saline -Foul Odor after Cleansing No -Negative Pressure Wound Therapy Continue Continue -Setting (mmHg) 125 125 -Negative Pressure is Continuous Continuous -Primary Dressing Applied Promogran -Other Dressing Epifix -Primary Dressing Covered/Secured with Dry Gauze & Dry Gauze & Roll Gauze, Roll Gauze, Secured with Secured with Tape Tape -NPWT Application Charge NPWT & NPWT & Debridement (nc Debridement (nc ) ) -Promogran 1 Left -Compression Wrap Juvencio Wrap -Other juvencio juvencio Treatment Response Procedure Procedure Tolerated Well Tolerated Well Pain Scale: 0-10 Numeric Is Patient Pain Free? No Yes Yes - Visit Discharge Discharge Condition Stable Stable Stable Ambulatory Status Wheelchair Ambulatory, Ambulatory, Walker Walker Transportation Private Auto Private Auto Private Auto Medication Reconcilliation completed & No No provided to patient/care provider Clinical Summary of Care Provided Yes Yes Facility Type Home Health Orders Sent Yes Assessment/Plan Assessment/Plan (1) Venous stasis ulcer of left lower leg with edema of left lower leg: CODE(S): I83.029 - Varicose veins of left lower extremity with ulcer of unspecified site; I83.892 - Varicose veins of left lower extremity with other complications; L97.929 - Non-pressure chronic ulcer of unspecified part of left lower leg with unspecified severity; R60.9 - Edema, unspecified (2) Diabetes mellitus: CODE(S): E11.9 - Type 2 diabetes mellitus without complications QUALIFIERS: Diabetes mellitus type: type 2 Diabetes mellitus supervisor intermediates insulin use: without supervisor intermediates use Diabetes mellitus complication status: with neurologic complications Diabetes mellitus complication detail: with polyneuropathy Qualified Code(s): E11.42 - Type 2 diabetes mellitus with diabetic polyneuropathy (3) Hypertension: CODE(S): I10 - Essential (primary) hypertension QUALIFIERS: Hypertension type: primary hypertension Qualified Code(s): I10 - Essential (primary) hypertension (4) Essential hypertension: CODE(S): I10 - Essential (primary) hypertension (5) Debility: CODE(S): R53.81 - Other malaise (6) Chronic obstructive pulmonary disease: CODE(S): J44.9 - Chronic obstructive pulmonary disease, unspecified QUALIFIERS: COPD type: unspecified COPD Qualified Code(s): J44.9 - Chronic obstructive pulmonary disease, unspecified PLAN: Plan Debridement performed today in clinic as annotated above. At home wound-care instructions: Epifix #2 was applied today per saw maker guidelines to wound bed using 100% of product, layered, rehydrated with hydrogel and covered with adaptic touch and secured with steri-strips. She tolerated procedure well. Secondary dressing with Aquacel Extra applied and ABD and she was instructed to change the outer dressing if drainage comes through but not to disturb or remove adaptic touch/steristrips and to keep the dressings dry and intact and not to get the dressings wet. Due to the delayed healing and her diabetes, I feel that treatment with an advanced wound care product to expedite healing is medically necessary and we will apply for authorization of the use of Epifix to improve her wound healing and decrease the length of time of treatment of her chronic wound. This was approved and Epifix #2 applied today. Compression: JUVENCIO compression wrap Off-loading: The patient was instructed to avoid pressure and friction on the affected areas. Reposition every 2 hours at minimum. Avoid prolonged standing and/or dangling of legs. When seated, feet should be elevated at chest level. Frequent ambulation is encouraged. Diet: Patient encouraged to increase protein intake while taking caution to avoid high carbohydrate and/or sugar intake. Patient is a former smoker Labs/cultures/imaging: Vascular studies ordered but have not been completed by patient. Follow-up: Return to clinic in 1 week for re-evaluation. Return sooner or report to the emergency room should symptoms worsen, or new symptoms arise.
== END 2021-12-05 23:59 | disposition home or self-care (01) ==
LOC: WC 09:00
PROVIDERS: PCP Family Medicine; Visit Provider Family Medicine
DX: I83.892 Varicose veins of left lower extremity with other complications (principal); L97.822 Non-pressure chronic ulcer of other part of left lower leg with fat layer exposed; I83.028 Varicose veins of left lower extremity with ulcer other part of lower leg; J44.9 Chronic obstructive pulmonary disease, unspecified; I11.0 Hypertensive heart disease with heart failure; I50.9 Heart failure, unspecified; E11.42 Type 2 diabetes mellitus with diabetic polyneuropathy; K21.9 Gastro-esophageal reflux disease without esophagitis; Z79.899 Other long term (current) drug therapy; Z79.84 Long term (current) use of oral hypoglycemic drugs; Z99.81 Dependence on supplemental oxygen; Z79.1 Long term (current) use of non-steroidal anti-inflammatories (NSAID); R09.02 Hypoxemia; M17.0 Bilateral primary osteoarthritis of knee
CPT/HCPCS: 11042; 15271; Q4186

== ENCOUNTER 2022-01-03 08:30 | Outpatient (RCR) | payer MEDICARE, SELFPAY ==
[2021-12-06 00:38] VITALS: BP 144/80; PULSE 81; RESP 18; TEMP 37.6; BMI 36.4
[2021-12-06 10:27] VITALS: BP 136/67; PULSE 64; RESP 18; TEMP 36.3; BMI 36.4
--- NOTE | 2021-12-06 13:29 | PCM.WC.PN ---
History of Present Illness Date of Service: 12/06/21 Chief Complaint: Venous leg ulcer left lower extremity History of Wound: This is a 76-year-old white female who presents to the wound healing center today with complaint of nonhealing ulceration on her left lower extremity. She has a past medical history significant for chronic hypoxia on supplemental O2, COPD, type 2 diabetes mellitus, CHF, and osteoarthritis of the bilateral knees and GERD. The patient states that her wound initially occurred after tripping over her walker over a month ago. Since then she has followed up with her primary care and has been placed on Keflex and has been utilizing triple antibiotic ointment covering with gauze for the last couple weeks. She states that she has not been utilizing any compression. She recently completed Keflex. She denies any systemic or localized signs of infection at this time. Denies any prior cultures being taken and denies any previous arterial or venous studies. Denies any other aggravating alleviating factors. Past medical, family, and social history reviewed and not pertinent to the current visit and all other systems reviewed and negative with exception of those listed above. Subjective Subjective Kandi tolerated Epifix treatment well. Denies fever, chills, increased drainage, increased pain or increased erythema. Objective Data Objective Data Vital Signs: Vital Signs Temp Pulse Resp BP O2 Flow Rate 97.3 F L 64 18 136/67 H 2 12/06/21 10:27 12/06/21 10:27 12/06/21 10:27 12/06/21 10:12/06/21 00:38 Oxygen Flow Rate (L/min) 2 Weight: 96.334 kg Body Mass Index (BMI) 36.4 Physical Exam Const alert, oriented x3 and no apparent distress General Appearance: cooperative and comfortable HEENT normocephalic and head/scalp atraumatic Resp normal respiratory effort Effort and Inspection: able to speak in complete sentences Cardio regular rate and regular rhythm Skin Wounds: wounds noted Wound Narrative: as in clinical panel Psych mental status grossly normal, thought process normal, cooperative and affect normal Debridement Note Debridement Note Post-Debridement Measurements and Additional Note: Post-Debridement Measurements/Treatment DASH - Nurse 1 - General Ulcer Assessment Start: 12/06/21 10:27 Freq: Status: Active Protocol: CHING Activity Type Activity Date Activity User E-sign Co-sign Detail Recorded Client Recorded Date Recorded By Document 12/06/21 10:27 RB [id number] 12/06/21 10:31 RB 12/06/21 10:27 WC - Today's Visit Information Type of service Follow-up Visit (Physician/SALES AND MERCHANDISING REPRESENTATIVE ) Arrival Mode Ambulatory, Walker Transfer Assistance None Patient Identification Verified (Name & Yes ) Patient Requires Transmission-Based No Precautions Height and Weight Body Mass Index (BMI) 36.4 BMI Classification Obese Vital Signs Temperature (97.8 F-99.1 F) 97.3 F L Temperature Source Temporal Pulse Rate (60-100) 64 Pulse Location Monitor Respiratory Rate (12-18) 18 Respiratory rate source Observation Blood Pressure (90/60-120/80) 136/67 H Blood Pressure Mean (mm Hg) 90 Source Monitor Position Semi-Fowlers Blood Pressure Location Left Arm History Since Last Visit- (Skip if this is Patient's initial visit) Have you changed medications since your No last visit? Any new allergies or adverse reactions No Had a fall/change in ADL's that may No increase risk of falls Signs or symptoms of abuse and/or No neglect since last visit Have you been in the hospital since your No last visit? Has dressing in place as prescribed Yes Has compression in place as prescribed Yes Has offloadiing in place as prescribed No Experienced any changes in pain level or No management Pain Scale: 0-10 Numeric Is Patient Pain Free? No LLE -Description Aching -Intensity 8 -Duration (hours) Acute -Pain Behavior Withdrawal from Touch -Pain Aggravating Factors Walking -Alleviating Factors/Interventions Medication -Effectiveness of Alleviating Factor/ Moderately Intervention effective WC - Nurse 1 - General Ulcer Measurement Start: 12/06/21 10:27 Freq: Status: Active Protocol: Activity Type Activity Date Activity User E-sign Co-sign Detail Recorded Client Recorded Date Recorded By Document 12/06/21 10:27 CAROLINE [id number] 12/06/21 10:31 RB 12/06/21 10:27 Wound Center Nurse 1 #1 LLE Post -Combined with other wound No -Current Size (cm) - Length 2.3 -Current Size (cm) - Width 1 -Current Size (cm) - Depth 0.2 -Total Square Cm 2.3 -Photo Taken Yes -Tunneling No -Undermining/Tunneling No -Circular Undermining No -Exudate Amt Large -Exudate Type Serosanguineous -Wound Margin Distinct, Outline Attached -Granulation Amt Medium (34-66%) -Granulation Quality [employer] -Slough/Fibrin Yes -Necrosis Amt Medium (34-66%) -Necrotic Tissue Type Adherent Slough -Structure Exposed N/A -Texture (Leticia-wound Skin Appearance) Assessed -Moisture (Leticia-wound Skin Appearance) Assessed -Color (Leticia-wound Skin Appearance) Assessed -Temperature (Leticia-wound Skin No Abnormality Appearance) (Pt Warm) -Ulcer Cleansing Wound Cleanser -Foul Odor after Cleansing No -Anesthetic Used 4% Lidocaine Solution,5% Lidocaine Gel Lower Limb Edema Present Yes Left Calf (cm) 43.5 Left Ankle (cm) 23 WC - Nurse 2 - General Ulcer CM Notes Start: 12/06/21 10:27 Freq: Status: Active Protocol: Activity Type Activity Date Activity User E-sign Co-sign Detail Recorded Client Recorded Date Recorded By Document 12/06/21 10:40 MW [id number] 12/06/21 10:51 MW 12/06/21 10:40 Wound Center Nurse 2 #1 LLE Post -Time 10:42 -Correct Patient Yes -Correct Side, Site, Position Yes -Correct Procedure Yes -Procedure Performed Yes -Type of Procedure Debridement -Clinical Debridement Subcutaneous -Tissue Removed Subcutaneous -Post Debridement (cm) - Length 3.2 -Post Debridement (cm) - Width 1.0 -Post Debridement (cm) - Depth 0.2 -Total Square (Post) (cm) 3.20 -Area of Debridement (cm) - Length 3.2 -Area of Debridement (cm) - Width 1.0 -Total Square (Area) (cm) 3.20 -Tunneling No -Undermining/Tunneling No -Circular Undermining No -Wound/Ulcer Outcome Not Healed -Ulcer Cleansing Rinsed/ Irrigated with Saline -Foul Odor after Cleansing No -Bioengineered Tissue Yes -Type of Bioengineered Tissue Epifix -Expiration Date 08/06/26 -Product Lot Number [id number] -Percent Used 100 -Lot number of Saline Used [id number] -Bleeding Controlled with Pressure -Treatment Response Procedure Tolerated Well -Offloading No -Debridement - Subq, 1st 20sq cm No -Apply Skin Sub - 1st 25 sq cm - Legs 1 -Epifix (per sq cm) 4 Pain Scale: 0-10 Numeric Is Patient Pain Free? Yes WC - Nurse 3 - General Ulcer D/C NN Start: 12/06/21 10:27 Freq: Status: Active Protocol: Activity Type Activity Date Activity User E-sign Co-sign Detail Recorded Client Recorded Date Recorded By Document 12/06/21 10:58 ML [id number] 12/06/21 10:58 ML 12/06/21 10:58 Wound Care Nurse 3 #1 LLE Post -Other Dressing abd,epifix -Primary Dressing Covered/Secured with Dry Gauze & Roll Gauze, Secured with Tape Pain Scale: 0-10 Numeric Is Patient Pain Free? Yes Assessment/Plan Assessment/Plan (1) Venous stasis ulcer of left lower leg with edema of left lower leg: CODE(S): I83.029 - Varicose veins of left lower extremity with ulcer of unspecified site; I83.892 - Varicose veins of left lower extremity with other complications; L97.929 - Non-pressure chronic ulcer of unspecified part of left lower leg with unspecified severity; R60.9 - Edema, unspecified (2) Diabetes mellitus: CODE(S): E11.9 - Type 2 diabetes mellitus without complications QUALIFIERS: Diabetes mellitus type: type 2 Diabetes mellitus senior living insulin use: without senior living use Diabetes mellitus complication status: with neurologic complications Diabetes mellitus complication detail: with polyneuropathy Qualified Code(s): E11.42 - Type 2 diabetes mellitus with diabetic polyneuropathy (3) Hypertension: CODE(S): I10 - Essential (primary) hypertension QUALIFIERS: Hypertension type: primary hypertension Qualified Code(s): I10 - Essential (primary) hypertension (4) Essential hypertension: CODE(S): I10 - Essential (primary) hypertension (5) Debility: CODE(S): R53.81 - Other malaise (6) Chronic obstructive pulmonary disease: CODE(S): J44.9 - Chronic obstructive pulmonary disease, unspecified QUALIFIERS: COPD type: unspecified COPD Qualified Code(s): J44.9 - Chronic obstructive pulmonary disease, unspecified PLAN: Plan Debridement performed today in clinic as annotated above. At home wound-care instructions: Epifix #3 was applied today per signal circuit designer guidelines to wound bed using 100% of product, layered, rehydrated with hydrogel and covered with adaptic touch and secured with steri-strips. She tolerated procedure well. Secondary dressing with Aquacel Extra applied and ABD and she was instructed to change the outer dressing if drainage comes through but not to disturb or remove adaptic touch/steristrips and to keep the dressings dry and intact and not to get the dressings wet. Due to the delayed healing and her diabetes, I feel that treatment with an advanced wound care product to expedite healing is medically necessary and we will apply for authorization of the use of Epifix to improve her wound healing and decrease the length of time of treatment of her chronic wound. This was approved and Epifix #3 applied today. Compression: TIMMY compression wrap Off-loading: The patient was instructed to avoid pressure and friction on the affected areas. Reposition every 2 hours at minimum. Avoid prolonged standing and/or dangling of legs. When seated, feet should be elevated at chest level. Frequent ambulation is encouraged. Diet: Patient encouraged to increase protein intake while taking caution to avoid high carbohydrate and/or sugar intake. Patient is a former smoker Labs/cultures/imaging: Vascular studies ordered but have not been completed by patient. Follow-up: Return to clinic in 1 week for re-evaluation. Return sooner or report to the emergency room should symptoms worsen, or new symptoms arise.
[2021-12-13 08:35] VITALS: BP 112/63; PULSE 78; RESP 18; TEMP 36.1; BMI 36.4
--- NOTE | 2021-12-13 12:47 | PCM.WC.PN ---
History of Present Illness Date of Service: 12/13/21 Chief Complaint: Venous leg ulcer left lower extremity History of Wound: This is a 76-year-old white female who presents to the wound healing center today with complaint of nonhealing ulceration on her left lower extremity. She has a past medical history significant for chronic hypoxia on supplemental O2, COPD, type 2 diabetes mellitus, CHF, and osteoarthritis of the bilateral knees and GERD. The patient states that her wound initially occurred after tripping over her walker over a month ago. Since then she has followed up with her primary care and has been placed on Keflex and has been utilizing triple antibiotic ointment covering with gauze for the last couple weeks. She states that she has not been utilizing any compression. She recently completed Keflex. She denies any systemic or localized signs of infection at this time. Denies any prior cultures being taken and denies any previous arterial or venous studies. Denies any other aggravating alleviating factors. Past medical, family, and social history reviewed and not pertinent to the current visit and all other systems reviewed and negative with exception of those listed above. Subjective Subjective Kandi tolerated Epifix treatment well. Denies fever, chills, increased drainage, increased pain or increased erythema. Objective Data Objective Data Vital Signs: Vital Signs Temp Pulse Resp BP O2 Flow Rate 97 F L 78 18 112/63 2 12/13/21 08:35 12/13/21 08:35 12/13/21 08:35 12/13/21 08:35 12/06/21 00:38 Oxygen Flow Rate (L/min) 2 Weight: 96.334 kg Body Mass Index (BMI) 36.4 Physical Exam Const alert, oriented x3 and no apparent distress General Appearance: cooperative and comfortable HEENT normocephalic and head/scalp atraumatic Resp normal respiratory effort Effort and Inspection: able to speak in complete sentences Cardio regular rate and regular rhythm Skin Wounds: wounds noted Wound Narrative: as in clinical panel Psych mental status grossly normal, thought process normal, cooperative and affect normal Debridement Note Debridement Note Wound debrided: Left lower extremity posterior Laterality: Left Type of Debridement: Excisional debridement Anesthesia Used: 4% Lidocaine Solution and 5% Lidocaine Gel Depth: Down to and including healthy tissue and in the subcutaneous layer Percentage of wound debrided: 100 Instrument Used: 5mm curette Tissue Removed: Yellow slough, devitalized tissue Severity: Fat Layer Exposed Amount of bleeding with debridement: Mild Bleeding Controlled with: Compression and gauze Patient tolerated procedure: Patient tolerated procedure well Post-Debridement Measurements and Additional Note: Post-Debridement Measurements/Treatment - Nurse 1 - General Ulcer Assessment Start: 12/06/21 10:27 Freq: Status: Active Protocol: DASH.[email or web address] Activity Type Activity Date Activity User E-sign Co-sign Detail Recorded Client Recorded Date Recorded By Document 12/06/21 10:27 RB [id number] 12/06/21 10:31 RB Document 12/13/21 08:35 RB [id number] 12/13/21 08:40 RB 12/06/21 12/13/21 10:27 08:35 - Today's Visit Information Type of service Follow-up Visit Follow-up Visit (Physician/INFORMATION SYSTEMS SECURITY SPECIALIST (Physician/INFORMATION SYSTEMS SECURITY SPECIALIST ) ) Arrival Mode Ambulatory, Ambulatory, Walker Walker Transfer Assistance None None Patient Identification Verified (Name & Yes Yes ) Patient Requires Transmission-Based No No Precautions Height and Weight Body Mass Index (BMI) 36.4 36.4 BMI Classification Obese Obese Vital Signs Temperature (97.8 F-99.1 F) 97.3 F L 97 F L Temperature Source Temporal Temporal Pulse Rate (60-100) 64 78 Pulse Location Monitor Monitor Respiratory Rate (12-18) 18 18 Respiratory rate source Observation Observation Blood Pressure (90/60-120/80) 136/67 H 112/63 Blood Pressure Mean (mm Hg) 90 79 Source Monitor Monitor Position Semi-Fowlers Semi-Fowlers Blood Pressure Location Left Arm Left Arm History Since Last Visit- (Skip if this is Patient's initial visit) Have you changed medications since your No No last visit? Any new allergies or adverse reactions No No Had a fall/change in ADL's that may No No increase risk of falls Signs or symptoms of abuse and/or No No neglect since last visit Have you been in the hospital since your No No last visit? Has dressing in place as prescribed Yes Yes Has compression in place as prescribed Yes No Has offloadiing in place as prescribed No Yes Experienced any changes in pain level or No No management Pain Scale: 0-10 Numeric Is Patient Pain Free? No Yes LLE -Description Aching -Intensity 8 -Duration (hours) Acute -Pain Behavior Withdrawal from Touch -Pain Aggravating Factors Walking -Alleviating Factors/Interventions Medication -Effectiveness of Alleviating Factor/ Moderately Intervention effective WC - Nurse 1 - General Ulcer Measurement Start: 12/06/21 10:27 Freq: Status: Active Protocol: Activity Type Activity Date Activity User E-sign Co-sign Detail Recorded Client Recorded Date Recorded By Document 12/06/21 10:27 RB [id number] 12/06/21 10:31 RB Document 12/13/21 08:35 RB [id number] 12/13/21 08:40 RB 12/06/21 12/13/21 10:27 08:35 Wound Center Nurse 1 #1 LLE Post -Combined with other wound No No -Current Size (cm) - Length 2.3 3.2 -Current Size (cm) - Width 1 1.3 -Current Size (cm) - Depth 0.2 0.1 -Total Square Cm 2.3 4.16 -Photo Taken Yes -Tunneling No No -Undermining/Tunneling No No -Circular Undermining No No -Exudate Amt Large Large -Exudate Type Serosanguineous Serosanguineous -Wound Margin Distinct, Distinct, Outline Outline Attached Attached -Granulation Amt Medium (34-66%) Medium (34-66%) -Granulation Quality [place] -Slough/Fibrin Yes Yes -Necrosis Amt Medium (34-66%) Small (1-33%) -Necrotic Tissue Type Adherent Slough Adherent Slough -Structure Exposed N/A N/A -Texture (Leticia-wound Skin Appearance) Assessed Assessed, Scarring -Moisture (Leticia-wound Skin Appearance) Assessed Assessed -Color (Leticia-wound Skin Appearance) Assessed Assessed -Temperature (Leticia-wound Skin No Abnormality No Abnormality Appearance) (Pt Warm) (Pt Warm) -Tenderness on Palpation (Leticia-wound No Skin Appearance) -Ulcer Cleansing Wound Cleanser Wound Cleanser -Foul Odor after Cleansing No No -Anesthetic Used 4% Lidocaine 5% Lidocaine Solution,5% Gel Lidocaine Gel Lower Limb Edema Present Yes Left Calf (cm) 43.5 39 Left Ankle (cm) 23 22 WC - Nurse 2 - General Ulcer CM Notes Start: 12/06/21 10:27 Freq: Status: Active Protocol: Activity Type Activity Date Activity User E-sign Co-sign Detail Recorded Client Recorded Date Recorded By Document 12/06/21 10:40 MW [id number] 12/06/21 10:51 MW Document 12/13/21 09:12 MW [id number] 12/13/21 09:27 MW 12/06/21 12/13/21 10:40 09:12 Wound Center Nurse 2 #1 LLE Post -Time 10:42 09:16 -Correct Patient Yes Yes -Correct Side, Site, Position Yes Yes -Correct Procedure Yes Yes -Procedure Performed Yes Yes -Type of Procedure Debridement Debridement -Clinical Debridement Subcutaneous Subcutaneous -Tissue Removed Subcutaneous Subcutaneous -Post Debridement (cm) - Length 3.2 2.9 -Post Debridement (cm) - Width 1.0 0.8 -Post Debridement (cm) - Depth 0.2 0.2 -Total Square (Post) (cm) 3.20 2.32 -Area of Debridement (cm) - Length 3.2 2.9 -Area of Debridement (cm) - Width 1.0 0.8 -Total Square (Area) (cm) 3.20 2.32 -Tunneling No No -Undermining/Tunneling No No -Circular Undermining No No -Wound/Ulcer Outcome Not Healed Not Healed -Ulcer Cleansing Rinsed/ Rinsed/ Irrigated with Irrigated with Saline Saline -Foul Odor after Cleansing No No -Bioengineered Tissue Yes Yes -Type of Bioengineered Tissue Epifix Epifix 18mm Disc -Expiration Date 08/06/26 09/06/26 -Product Lot Number [id number] -Percent Used 100 100 -Lot number of Saline Used [id number] -Bleeding Controlled with Pressure Pressure -Treatment Response Procedure Procedure Tolerated Well Tolerated Well -Offloading No No -Debridement - Subq, 1st 20sq cm No No -Apply Skin Sub - 1st 25 sq cm - Legs 1 1 -Epifix (per sq cm) 4 -Epifix 18mm Disc 3 Pain Scale: 0-10 Numeric Is Patient Pain Free? Yes Yes WC - Nurse 3 - General Ulcer D/C NN Start: 12/06/21 10:27 Freq: Status: Active Protocol: Activity Type Activity Date Activity User E-sign Co-sign Detail Recorded Client Recorded Date Recorded By Document 12/06/21 10:58 ML [id number] 12/06/21 10:58 ML Document 12/13/21 09:36 RB [id number] 12/13/21 09:37 RB 12/06/21 12/13/21 10:58 09:36 Wound Care Nurse 3 #1 LLE Post -Other Dressing abd,epifix abd pad -Primary Dressing Covered/Secured with Dry Gauze & Dry Gauze,Dry Roll Gauze, Gauze & Roll Secured with Gauze,Secured Tape with Tape Left -Tubular Bandage Single Layer -Size of Tubigrip Used Size E -Size E ($) 1 Treatment Response Procedure Tolerated Well Pain Scale: 0-10 Numeric Is Patient Pain Free? Yes Yes WC - Visit Discharge Discharge Condition Stable Ambulatory Status Ambulatory, Walker Transportation Private Auto Medication Reconcilliation completed & No provided to patient/care provider Clinical Summary of Care Provided Yes Assessment/Plan Assessment/Plan (1) Venous stasis ulcer of left lower leg with edema of left lower leg: CODE(S): I83.029 - Varicose veins of left lower extremity with ulcer of unspecified site; I83.892 - Varicose veins of left lower extremity with other complications; L97.929 - Non-pressure chronic ulcer of unspecified part of left lower leg with unspecified severity; R60.9 - Edema, unspecified (2) Diabetes mellitus: CODE(S): E11.9 - Type 2 diabetes mellitus without complications QUALIFIERS: Diabetes mellitus type: type 2 Diabetes mellitus mcfp insulin use: without mcfp use Diabetes mellitus complication status: with neurologic complications Diabetes mellitus complication detail: with polyneuropathy Qualified Code(s): E11.42 - Type 2 diabetes mellitus with diabetic polyneuropathy (3) Hypertension: CODE(S): I10 - Essential (primary) hypertension QUALIFIERS: Hypertension type: primary hypertension Qualified Code(s): I10 - Essential (primary) hypertension (4) Essential hypertension: CODE(S): I10 - Essential (primary) hypertension (5) Debility: CODE(S): R53.81 - Other malaise (6) Chronic obstructive pulmonary disease: CODE(S): J44.9 - Chronic obstructive pulmonary disease, unspecified QUALIFIERS: COPD type: unspecified COPD Qualified Code(s): J44.9 - Chronic obstructive pulmonary disease, unspecified PLAN: Plan Debridement performed today in clinic as annotated above. At home wound-care instructions: Epifix #4 was applied today per monitoring manager guidelines to wound bed using 100% of product, layered, rehydrated with hydrogel and covered with adaptic touch and secured with steri-strips. She tolerated procedure well. Secondary dressing with Aquacel Extra applied and ABD and she was instructed to change the outer dressing if drainage comes through but not to disturb or remove adaptic touch/steristrips and to keep the dressings dry and intact and not to get the dressings wet. Due to the delayed healing and her diabetes, I feel that treatment with an advanced wound care product to expedite healing is medically necessary and we will apply for authorization of the use of Epifix to improve her wound healing and decrease the length of time of treatment of her chronic wound. This was approved and Epifix #4 applied today. Compression: Tubigrip compression in single utility pipe layer-loading: The patient was instructed to avoid pressure and friction on the affected areas. Reposition every 2 hours at minimum. Avoid prolonged standing and/or dangling of legs. When seated, feet should be elevated at chest level. Frequent ambulation is encouraged. Diet: Patient encouraged to increase protein intake while taking caution to avoid high carbohydrate and/or sugar intake. Patient is a former smoker Labs/cultures/imaging: Vascular studies ordered but have not been completed by patient. Follow-up: Return to clinic in 1 week for re-evaluation. Return sooner or report to the emergency room should symptoms worsen, or new symptoms arise.
[2021-12-20 10:30] VITALS: BP 156/80; PULSE 73; TEMP 36.1; BMI 36.4
--- NOTE | 2021-12-20 12:51 | PN.PCM_ITS ---
History of Present Illness Date of Service: 12/20/21 Chief Complaint: Venous leg ulcer left lower extremity History of Wound: This is a 76-year-old white female who presents to the wound healing center today with complaint of nonhealing ulceration on her left lower extremity. She has a past medical history significant for chronic hypoxia on supplemental O2, COPD, type 2 diabetes mellitus, CHF, and osteoarthritis of the bilateral knees and GERD. The patient states that her wound initially occurred after tripping over her walker over a month ago. Since then she has followed up with her primary care and has been placed on Keflex and has been utilizing triple antibiotic ointment covering with gauze for the last couple weeks. She states that she has not been utilizing any compression. She recently completed Keflex. She denies any systemic or localized signs of infection at this time. Denies any prior cultures being taken and denies any previous arterial or venous studies. Denies any other aggravating alleviating factors. Past medical, family, and social history reviewed and not pertinent to the current visit and all other systems reviewed and negative with exception of those listed above. Subjective Subjective Kandi tolerated Epifix treatment well. Denies fever, chills, increased drainage, increased pain or increased erythema. Objective Data Objective Data Vital Signs: Vital Signs Temp Pulse Resp BP O2 Flow Rate 96.9 F L 73 18 156/80 H 2 12/20/21 10:30 12/20/21 10:30 12/13/21 08:35 12/20/21 10:30 12/06/21 00:38 Oxygen Flow Rate (L/min) 2 Weight: 96.334 kg Body Mass Index (BMI) 36.4 Physical Exam Const alert, oriented x3 and no apparent distress General Appearance: cooperative and comfortable HEENT normocephalic and head/scalp atraumatic Resp normal respiratory effort Effort and Inspection: able to speak in complete sentences Cardio regular rate and regular rhythm Skin Wounds: wounds noted Wound Narrative: as in clinical panel Psych mental status grossly normal, thought process normal, cooperative and affect normal Debridement Note Debridement Note Wound debrided: Left lower extremity posterior Laterality: Left Type of Debridement: Excisional debridement Anesthesia Used: 4% Lidocaine Solution and 5% Lidocaine Gel Depth: Down to and including healthy tissue and in the subcutaneous layer Percentage of wound debrided: 100 Instrument Used: 5mm curette Tissue Removed: Yellow slough, devitalized tissue Severity: Fat Layer Exposed Amount of bleeding with debridement: Mild Bleeding Controlled with: Compression and gauze Patient tolerated procedure: Patient tolerated procedure well Post-Debridement Measurements and Additional Note: Post-Debridement Measurements/Treatment WC - Nurse 1 - General Ulcer Assessment Start: 12/06/21 10:27 Freq: Status: Active Protocol: CARMENT Activity Type Activity Date Activity User E-sign Co-sign Detail Recorded Client Recorded Date Recorded By Document 12/06/21 10:27 RB [id number] 12/06/21 10:31 RB Document 12/13/21 08:35 RB [id number] 12/13/21 08:40 RB Document 12/20/21 10:30 AK [id number] 12/20/21 10:37 AK 12/06/21 12/13/21 12/20/21 10:27 08:35 10:30 - Today's Visit Information Type of service Follow-up Visit Follow-up Visit Follow-up Visit (Physician/ASSISTANT MECHANIC (Physician/ASSISTANT MECHANIC (Physician/ASSISTANT MECHANIC ) ) ) Arrival Mode Ambulatory, Ambulatory, Ambulatory, Walker Walker Walker Transfer Assistance None None Patient Identification Verified (Name & Yes Yes Yes ) Patient Requires Transmission-Based No No No Precautions Safety Precautions NA Height and Weight Body Mass Index (BMI) 36.4 36.4 36.4 BMI Classification Obese Obese Obese Vital Signs Temperature (97.8 F-99.1 F) 97.3 F L 97 F L 96.9 F L Temperature Source Temporal Temporal Temporal Pulse Rate (60-100) 64 78 73 Pulse Location Monitor Monitor Monitor Respiratory Rate (12-18) 18 18 Respiratory rate source Observation Observation Blood Pressure (90/60-120/80) 136/67 H 112/63 156/80 H Blood Pressure Mean (mm Hg) 90 79 105 Source Monitor Monitor Monitor Position Semi-Fowlers Semi-Fowlers Blood Pressure Location Left Arm Left Arm History Since Last Visit- (Skip if this is Patient's initial visit) Have you changed medications since your No No No last visit? Any new allergies or adverse reactions No No No Had a fall/change in ADL's that may No No No increase risk of falls Signs or symptoms of abuse and/or No No No neglect since last visit Have you been in the hospital since your No No No last visit? Has dressing in place as prescribed Yes Yes Yes Has compression in place as prescribed Yes No Yes Has offloadiing in place as prescribed No Yes N/A Experienced any changes in pain level or No No No management Left Footwear Regular Shoe Right Footwear Regular Shoe Pain Scale: 0-10 Numeric Is Patient Pain Free? No Yes Yes LLE -Description Aching -Intensity 8 -Duration (hours) Acute -Pain Behavior Withdrawal from Touch -Pain Aggravating Factors Walking -Alleviating Factors/Interventions Medication -Effectiveness of Alleviating Factor/ Moderately Intervention effective WC - Nurse 1 - General Ulcer Measurement Start: 12/06/21 10:27 Freq: Status: Active Protocol: Activity Type Activity Date Activity User E-sign Co-sign Detail Recorded Client Recorded Date Recorded By Document 12/06/21 10:27 RB [id number] 12/06/21 10:31 RB Document 12/13/21 08:35 RB [id number] 12/13/21 08:40 RB Document 12/20/21 10:30 AK [id number] 12/20/21 10:37 AK 12/06/21 12/13/21 12/20/21 10:27 08:35 10:30 Wound Center Nurse 1 #1 LLE Post -Combined with other wound No No No -Current Size (cm) - Length 2.3 3.2 3.2 -Current Size (cm) - Width 1 1.3 1 -Current Size (cm) - Depth 0.2 0.1 0.1 -Total Square Cm 2.3 4.16 3.2 -Photo Taken Yes No -Tunneling No No No -Undermining/Tunneling No No No -Circular Undermining No No No -Exudate Amt Large Large Medium -Exudate Type Serosanguineous Serosanguineous Serosanguineous -Wound Margin Distinct, Distinct, Distinct, Outline Outline Outline Attached Attached Attached -Granulation Amt Medium (34-66%) Medium (34-66%) Medium (34-66%) -Granulation Quality Toast Toast Toast,Red -Slough/Fibrin Yes Yes Yes -Necrosis Amt Medium (34-66%) Small (1-33%) Medium (34-66%) -Necrotic Tissue Type Adherent Slough Adherent Slough Adherent Slough -Structure Exposed N/A N/A N/A -Texture (Leticia-wound Skin Appearance) Assessed Assessed, No Abnormality, Scarring Assessed -Moisture (Leticia-wound Skin Appearance) Assessed Assessed No Abnormality, Assessed -Color (Leticia-wound Skin Appearance) Assessed Assessed No Abnormality, Assessed -Temperature (Leticia-wound Skin No Abnormality No Abnormality No Abnormality Appearance) (Pt Warm) (Pt Warm) (Pt Warm) -Tenderness on Palpation (Leticia-wound No No Skin Appearance) -Ulcer Cleansing Wound Cleanser Wound Cleanser Soap and Water -Foul Odor after Cleansing No No No -Anesthetic Used 4% Lidocaine 5% Lidocaine 5% Lidocaine Solution,5% Gel Gel Lidocaine Gel Lower Limb Edema Present Yes No Left Calf (cm) 43.5 39 3.2 Left Ankle (cm) 23 22 WC - Nurse 2 - General Ulcer CM Notes Start: 12/06/21 10:27 Freq: Status: Active Protocol: Activity Type Activity Date Activity User E-sign Co-sign Detail Recorded Client Recorded Date Recorded By Document 12/06/21 10:40 MW [id number] 12/06/21 10:51 MW Document 12/13/21 09:12 MW [id number] 12/13/21 09:27 MW Document 12/20/21 10:49 MW [id number] 12/20/21 11:00 MW 12/06/21 12/13/21 12/20/21 10:40 09:12 10:49 Wound Center Nurse 2 #1 LLE Post -Time 10:42 09:16 10:49 -Correct Patient Yes Yes Yes -Correct Side, Site, Position Yes Yes Yes -Correct Procedure Yes Yes Yes -Procedure Performed Yes Yes Yes -Type of Procedure Debridement Debridement Debridement -Clinical Debridement Subcutaneous Subcutaneous Subcutaneous -Tissue Removed Subcutaneous Subcutaneous Subcutaneous -Post Debridement (cm) - Length 3.2 2.9 2.3 -Post Debridement (cm) - Width 1.0 0.8 0.3 -Post Debridement (cm) - Depth 0.2 0.2 0.2 -Total Square (Post) (cm) 3.20 2.32 0.69 -Area of Debridement (cm) - Length 3.2 2.9 2.3 -Area of Debridement (cm) - Width 1.0 0.8 0.3 -Total Square (Area) (cm) 3.20 2.32 0.69 -Tunneling No No No -Undermining/Tunneling No No No -Circular Undermining No No No -Wound/Ulcer Outcome Not Healed Not Healed Not Healed -Ulcer Cleansing Rinsed/ Rinsed/ Rinsed/ Irrigated with Irrigated with Irrigated with Saline Saline Saline -Foul Odor after Cleansing No No No -Bioengineered Tissue Yes Yes Yes -Type of Bioengineered Tissue Epifix Epifix 18mm Epifix 18mm Disc Disc -Expiration Date 08/06/26 09/06/26 10/06/26 -Product Lot Number [id number] -Percent Used 100 100 100 -Lot number of Saline Used [id number] -Bleeding Controlled with Pressure Pressure Pressure -Treatment Response Procedure Procedure Procedure Tolerated Well Tolerated Well Tolerated Well -Offloading No No No -Debridement - Subq, 1st 20sq cm No No No -Apply Skin Sub - 1st 25 sq cm - Legs 1 1 1 -Epifix (per sq cm) 4 -Epifix 18mm Disc 3 3 Pain Scale: 0-10 Numeric Is Patient Pain Free? Yes Yes Yes WC - Nurse 3 - General Ulcer D/C NN Start: 12/06/21 10:27 Freq: Status: Active Protocol: Activity Type Activity Date Activity User E-sign Co-sign Detail Recorded Client Recorded Date Recorded By Document 12/06/21 10:58 ML [id number] 12/06/21 10:58 ML Document 12/13/21 09:36 RB [id number] 12/13/21 09:37 RB Document 12/20/21 11:16 DL [id number] 12/20/21 11:18 DL 12/06/21 12/13/21 12/20/21 10:58 09:36 11:16 Wound Care Nurse 3 #1 LLE Post -Foul Odor after Cleansing No -Other Dressing abd,epifix abd pad epifix -Primary Dressing Covered/Secured with Dry Gauze & Dry Gauze,Dry Dry Gauze & Roll Gauze, Gauze & Roll Roll Gauze, Secured with Gauze,Secured Secured with Tape with Tape Tape Left -Tubular Bandage Single Layer Single Layer -Size of Tubigrip Used Size E Size E -Size E ($) 1 1 Treatment Response Procedure Procedure Tolerated Well Tolerated Well Pain Scale: 0-10 Numeric Is Patient Pain Free? Yes Yes Yes WC - Visit Discharge Discharge Condition Stable Stable Ambulatory Status Ambulatory, Ambulatory, Walker Walker Transportation Private Auto Private Auto Accompanied by daughter Medication Reconcilliation completed & No provided to patient/care provider Clinical Summary of Care Provided Yes Facility Type Home Health Orders Sent Yes Assessment/Plan Assessment/Plan (1) Venous stasis ulcer of left lower leg with edema of left lower leg: CODE(S): I83.029 - Varicose veins of left lower extremity with ulcer of unspecified site; I83.892 - Varicose veins of left lower extremity with other complications; L97.929 - Non-pressure chronic ulcer of unspecified part of left lower leg with unspecified severity; R60.9 - Edema, unspecified (2) Diabetes mellitus: CODE(S): E11.9 - Type 2 diabetes mellitus without complications QUALIFIERS: Diabetes mellitus type: type 2 Diabetes mellitus [facility] insulin use: without [facility] use Diabetes mellitus complication status: with neurologic complications Diabetes mellitus complication detail: with polyneuropathy Qualified Code(s): E11.42 - Type 2 diabetes mellitus with diabetic polyneuropathy (3) Hypertension: CODE(S): I10 - Essential (primary) hypertension QUALIFIERS: Hypertension type: primary hypertension Qualified Code(s): I10 - Essential (primary) hypertension (4) Essential hypertension: CODE(S): I10 - Essential (primary) hypertension (5) Debility: CODE(S): R53.81 - Other malaise (6) Chronic obstructive pulmonary disease: CODE(S): J44.9 - Chronic obstructive pulmonary disease, unspecified QUALIFIERS: COPD type: unspecified COPD Qualified Code(s): J44.9 - Chronic obstructive pulmonary disease, unspecified PLAN: Plan Debridement performed today in clinic as annotated above. At home wound-care instructions: Epifix #5 was applied today per quality improvement engineer guidelines to wound bed using 100% of product, layered, rehydrated with hydrogel and covered with adaptic touch and secured with steri-strips. She tolerated procedure well. Secondary dressing with gauze and she was instructed to change the outer dressing if drainage comes through but not to disturb or remove adaptic touch/steristrips and to keep the dressings dry and intact and not to get the dressings wet. Due to the delayed healing and her diabetes, I feel that treatment with an advanced wound care product to expedite healing is medically necessary and we will apply for authorization of the use of Epifix to improve her wound healing and decrease the length of time of treatment of her chronic wound. This was approved and Epifix #5 applied today. Compression: Tubigrip compression in single plastic tile layer-loading: The patient was instructed to avoid pressure and friction on the affected areas. Reposition every 2 hours at minimum. Avoid prolonged standing and/or dangling of legs. When seated, feet should be elevated at chest level. Frequent ambulation is encouraged. Diet: Patient encouraged to increase protein intake while taking caution to avoid high carbohydrate and/or sugar intake. Patient is a former smoker Labs/cultures/imaging: Vascular studies ordered but have not been completed by patient. Follow-up: Return to clinic in 1 week for re-evaluation. Return sooner or report to the emergency room should symptoms worsen, or new symptoms arise.
[2021-12-27 08:26] VITALS: BP 169/74; PULSE 88; TEMP 36.1; BMI 36.4
--- NOTE | 2021-12-27 12:11 | PCM.WC.PN ---
History of Present Illness Date of Service: 12/27/21 Chief Complaint: Venous leg ulcer left lower extremity History of Wound: This is a 76-year-old white female who presents to the wound healing center today with complaint of nonhealing ulceration on her left lower extremity. She has a past medical history significant for chronic hypoxia on supplemental O2, COPD, type 2 diabetes mellitus, CHF, and osteoarthritis of the bilateral knees and GERD. The patient states that her wound initially occurred after tripping over her walker over a month ago. Since then she has followed up with her primary care and has been placed on Keflex and has been utilizing triple antibiotic ointment covering with gauze for the last couple weeks. She states that she has not been utilizing any compression. She recently completed Keflex. She denies any systemic or localized signs of infection at this time. Denies any prior cultures being taken and denies any previous arterial or venous studies. Denies any other aggravating alleviating factors. Past medical, family, and social history reviewed and not pertinent to the current visit and all other systems reviewed and negative with exception of those listed above. Subjective Subjective Kandi tolerated Epifix treatment well. Denies fever, chills, increased drainage, increased pain or increased erythema. Objective Data Objective Data Vital Signs: Vital Signs Temp Pulse Resp BP O2 Flow Rate 97.0 F L 88 18 169/74 H 2 12/27/21 08:26 12/27/21 08:26 12/13/21 08:35 12/27/21 08:26 12/06/21 00:38 Oxygen Flow Rate (L/min) 2 Weight: 96.334 kg Body Mass Index (BMI) 36.4 Physical Exam Const alert, oriented x3 and no apparent distress General Appearance: cooperative and comfortable HEENT normocephalic and head/scalp atraumatic Resp normal respiratory effort Effort and Inspection: able to speak in complete sentences Cardio regular rate and regular rhythm Skin Wounds: wounds noted Wound Narrative: as in clinical panel Psych mental status grossly normal, thought process normal, cooperative and affect normal Debridement Note Debridement Note Wound debrided: Left lower extremity posterior Laterality: Left Type of Debridement: Excisional debridement Anesthesia Used: 4% Lidocaine Solution and 5% Lidocaine Gel Depth: Down to and including healthy tissue and in the subcutaneous layer Percentage of wound debrided: 100 Instrument Used: 5mm curette Tissue Removed: Yellow slough, devitalized tissue Severity: Fat Layer Exposed Amount of bleeding with debridement: Mild Bleeding Controlled with: Compression and gauze Patient tolerated procedure: Patient tolerated procedure well Post-Debridement Measurements and Additional Note: Post-Debridement Measurements/Treatment WC - Nurse 1 - General Ulcer Assessment Start: 12/06/21 10:27 Freq: Status: Active Protocol: DASH.LOWARICT Activity Type Activity Date Activity User E-sign Co-sign Detail Recorded Client Recorded Date Recorded By Document 12/06/21 10:27 RB [id number] 12/06/21 10:31 RB Document 12/13/21 08:35 RB [id number] 12/13/21 08:40 RB Document 12/20/21 10:30 AK [id number] 12/20/21 10:37 AK Document 12/27/21 08:26 KR [id number] 12/27/21 08:34 KR 12/06/21 12/13/21 12/20/21 10:27 08:35 10:30 - Today's Visit Information Type of service Follow-up Visit Follow-up Visit Follow-up Visit (Physician/SUPERVISOR NUCLEAR MEDICINE (Physician/SUPERVISOR NUCLEAR MEDICINE (Physician/SUPERVISOR NUCLEAR MEDICINE ) ) ) Arrival Mode Ambulatory, Ambulatory, Ambulatory, Walker Walker Walker Transfer Assistance None None Patient Identification Verified (Name & Yes Yes Yes ) Patient Requires Transmission-Based No No No Precautions Safety Precautions NA Height and Weight Body Mass Index (BMI) 36.4 36.4 36.4 BMI Classification Obese Obese Obese Vital Signs Temperature (97.8 F-99.1 F) 97.3 F L 97 F L 96.9 F L Temperature Source Temporal Temporal Temporal Pulse Rate (60-100) 64 78 73 Pulse Location Monitor Monitor Monitor Respiratory Rate (12-18) 18 18 Respiratory rate source Observation Observation Blood Pressure (90/60-120/80) 136/67 H 112/63 156/80 H Blood Pressure Mean (mm Hg) 90 79 105 Source Monitor Monitor Monitor Position Semi-Fowlers Semi-Fowlers Blood Pressure Location Left Arm Left Arm History Since Last Visit- (Skip if this is Patient's initial visit) Have you changed medications since your No No No last visit? Any new allergies or adverse reactions No No No Had a fall/change in ADL's that may No No No increase risk of falls Signs or symptoms of abuse and/or No No No neglect since last visit Have you been in the hospital since your No No No last visit? Has dressing in place as prescribed Yes Yes Yes Has compression in place as prescribed Yes No Yes Has offloadiing in place as prescribed No Yes N/A Experienced any changes in pain level or No No No management Left Footwear Regular Shoe Right Footwear Regular Shoe Pain Scale: 0-10 Numeric Is Patient Pain Free? No Yes Yes LLE -Description Aching -Intensity 8 -Duration (hours) Acute -Pain Behavior Withdrawal from Touch -Pain Aggravating Factors Walking -Alleviating Factors/Interventions Medication -Effectiveness of Alleviating Factor/ Moderately Intervention effective 12/27/21 08:26 WC - Today's Visit Information Type of service Follow-up Visit (Physician/SUPERVISOR NUCLEAR MEDICINE ) Arrival Mode Ambulatory Transfer Assistance Patient Identification Verified (Name & Yes ) Patient Requires Transmission-Based Precautions Safety Precautions Height and Weight Body Mass Index (BMI) 36.4 BMI Classification Obese Vital Signs Temperature (97.8 F-99.1 F) 97.0 F L Temperature Source Temporal Pulse Rate (60-100) 88 Pulse Location Monitor Respiratory Rate (12-18) Respiratory rate source Blood Pressure (90/60-120/80) 169/74 H Blood Pressure Mean (mm Hg) 105 Source Monitor Position Semi-Fowlers Blood Pressure Location Right Arm History Since Last Visit- (Skip if this is Patient's initial visit) Have you changed medications since your No last visit? Any new allergies or adverse reactions No Had a fall/change in ADL's that may No increase risk of falls Signs or symptoms of abuse and/or No neglect since last visit Have you been in the hospital since your No last visit? Has dressing in place as prescribed Yes Has compression in place as prescribed Yes Has offloadiing in place as prescribed N/A Experienced any changes in pain level or No management Left Footwear Regular Shoe Right Footwear Regular Shoe Pain Scale: 0-10 Numeric Is Patient Pain Free? Yes LLE -Description -Intensity -Duration (hours) -Pain Behavior -Pain Aggravating Factors -Alleviating Factors/Interventions -Effectiveness of Alleviating Factor/ Intervention WC - Nurse 1 - General Ulcer Measurement Start: 12/06/21 10:27 Freq: Status: Active Protocol: Activity Type Activity Date Activity User E-sign Co-sign Detail Recorded Client Recorded Date Recorded By Document 12/06/21 10:27 RB [id number] 12/06/21 10:31 RB Document 12/13/21 08:35 RB [id number] 12/13/21 08:40 RB Document 12/20/21 10:30 AK [id number] 12/20/21 10:37 AK Document 12/27/21 08:26 KR [id number] 12/27/21 08:34 KR 12/06/21 12/13/21 12/20/21 10:27 08:35 10:30 Wound Center Nurse 1 #1 LLE Post -Combined with other wound No No No -Current Size (cm) - Length 2.3 3.2 3.2 -Current Size (cm) - Width 1 1.3 1 -Current Size (cm) - Depth 0.2 0.1 0.1 -Total Square Cm 2.3 4.16 3.2 -Photo Taken Yes No -Tunneling No No No -Undermining/Tunneling No No No -Circular Undermining No No No -Exudate Amt Large Large Medium -Exudate Type Serosanguineous Serosanguineous Serosanguineous -Wound Margin Distinct, Distinct, Distinct, Outline Outline Outline Attached Attached Attached -Granulation Amt Medium (34-66%) Medium (34-66%) Medium (34-66%) -Granulation Quality Capron Capron Capron,Red -Slough/Fibrin Yes Yes Yes -Necrosis Amt Medium (34-66%) Small (1-33%) Medium (34-66%) -Necrotic Tissue Type Adherent Slough Adherent Slough Adherent Slough -Structure Exposed N/A N/A N/A -Texture (Leticia-wound Skin Appearance) Assessed Assessed, No Abnormality, Scarring Assessed -Moisture (Leticia-wound Skin Appearance) Assessed Assessed No Abnormality, Assessed -Color (Leticia-wound Skin Appearance) Assessed Assessed No Abnormality, Assessed -Temperature (Leticia-wound Skin No Abnormality No Abnormality No Abnormality Appearance) (Pt Warm) (Pt Warm) (Pt Warm) -Tenderness on Palpation (Leticia-wound No No Skin Appearance) -Ulcer Cleansing Wound Cleanser Wound Cleanser Soap and Water -Foul Odor after Cleansing No No No -Anesthetic Used 4% Lidocaine 5% Lidocaine 5% Lidocaine Solution,5% Gel Gel Lidocaine Gel Lower Limb Edema Present Yes No Left Calf (cm) 43.5 39 3.2 Left Ankle (cm) 23 22 12/27/21 08:26 Wound Center Nurse 1 #1 LLE Post -Combined with other wound -Current Size (cm) - Length 1 -Current Size (cm) - Width 0.2 -Current Size (cm) - Depth 0.1 -Total Square Cm 0.2 -Photo Taken -Tunneling -Undermining/Tunneling -Circular Undermining -Exudate Amt Small -Exudate Type Serosanguineous -Wound Margin Distinct, Outline Attached -Granulation Amt -Granulation Quality -Slough/Fibrin -Necrosis Amt Large (67-100%) -Necrotic Tissue Type Adherent Slough -Structure Exposed -Texture (Leticia-wound Skin Appearance) Assessed, Scarring -Moisture (Leticia-wound Skin Appearance) No Abnormality, Assessed -Color (Leticia-wound Skin Appearance) No Abnormality, Assessed -Temperature (Leticia-wound Skin No Abnormality Appearance) (Pt Warm) -Tenderness on Palpation (Leticia-wound No Skin Appearance) -Ulcer Cleansing Soap and Water -Foul Odor after Cleansing No -Anesthetic Used 4% Lidocaine Solution Lower Limb Edema Present Left Calf (cm) Left Ankle (cm) WC - Nurse 2 - General Ulcer CM Notes Start: 12/06/21 10:27 Freq: Status: Active Protocol: Activity Type Activity Date Activity User E-sign Co-sign Detail Recorded Client Recorded Date Recorded By Document 12/06/21 10:40 MW [id number] 12/06/21 10:51 MW Document 12/13/21 09:12 MW [id number] 12/13/21 09:27 MW Document 12/20/21 10:49 MW [id number] 12/20/21 11:00 MW Document 12/27/21 09:10 MW [id number] 12/27/21 09:16 MW 12/06/21 12/13/21 12/20/21 10:40 09:12 10:49 Wound Center Nurse 2 #1 LLE Post -Time 10:42 09:16 10:49 -Correct Patient Yes Yes Yes -Correct Side, Site, Position Yes Yes Yes -Correct Procedure Yes Yes Yes -Procedure Performed Yes Yes Yes -Type of Procedure Debridement Debridement Debridement -Clinical Debridement Subcutaneous Subcutaneous Subcutaneous -Tissue Removed Subcutaneous Subcutaneous Subcutaneous -Post Debridement (cm) - Length 3.2 2.9 2.3 -Post Debridement (cm) - Width 1.0 0.8 0.3 -Post Debridement (cm) - Depth 0.2 0.2 0.2 -Total Square (Post) (cm) 3.20 2.32 0.69 -Area of Debridement (cm) - Length 3.2 2.9 2.3 -Area of Debridement (cm) - Width 1.0 0.8 0.3 -Total Square (Area) (cm) 3.20 2.32 0.69 -Tunneling No No No -Undermining/Tunneling No No No -Circular Undermining No No No -Wound/Ulcer Outcome Not Healed Not Healed Not Healed -Ulcer Cleansing Rinsed/ Rinsed/ Rinsed/ Irrigated with Irrigated with Irrigated with Saline Saline Saline -Foul Odor after Cleansing No No No -Bioengineered Tissue Yes Yes Yes -Type of Bioengineered Tissue Epifix Epifix 18mm Epifix 18mm Disc Disc -Expiration Date 08/06/26 09/06/26 10/06/26 -Product Lot Number [id number] -Percent Used 100 100 100 -Lot number of Saline Used [id number] -Bleeding Controlled with Pressure Pressure Pressure -Treatment Response Procedure Procedure Procedure Tolerated Well Tolerated Well Tolerated Well -Offloading No No No -Debridement - Subq, 1st 20sq cm No No No -Apply Skin Sub - 1st 25 sq cm - Legs 1 1 1 -Epifix (per sq cm) 4 -Epifix 18mm Disc 3 3 Pain Scale: 0-10 Numeric Is Patient Pain Free? Yes Yes Yes 12/27/21 09:10 Wound Center Nurse 2 #1 LLE Post -Time 09:14 -Correct Patient Yes -Correct Side, Site, Position Yes -Correct Procedure Yes -Procedure Performed Yes -Type of Procedure Debridement -Clinical Debridement Subcutaneous -Tissue Removed Subcutaneous -Post Debridement (cm) - Length 2.5 -Post Debridement (cm) - Width 0.7 -Post Debridement (cm) - Depth 0.2 -Total Square (Post) (cm) 1.75 -Area of Debridement (cm) - Length 2.5 -Area of Debridement (cm) - Width 0.7 -Total Square (Area) (cm) 1.75 -Tunneling No -Undermining/Tunneling No -Circular Undermining No -Wound/Ulcer Outcome Not Healed -Ulcer Cleansing Rinsed/ Irrigated with Saline -Foul Odor after Cleansing No -Bioengineered Tissue Yes -Type of Bioengineered Tissue Epifix -Expiration Date 09/06/26 -Product Lot Number [id number] -Percent Used 100 -Lot number of Saline Used [id number] -Bleeding Controlled with Pressure -Treatment Response Procedure Tolerated Well -Offloading No -Debridement - Subq, 1st 20sq cm No -Apply Skin Sub - 1st 25 sq cm - Legs 1 -Epifix (per sq cm) 4 -Epifix 18mm Disc Pain Scale: 0-10 Numeric Is Patient Pain Free? Yes - Nurse 3 - General Ulcer D/C NN Start: 12/06/21 10:27 Freq: Status: Active Protocol: Activity Type Activity Date Activity User E-sign Co-sign Detail Recorded Client Recorded Date Recorded By Document 12/06/21 10:58 ML [id number] 12/06/21 10:58 ML Document 12/13/21 09:36 RB [id number] 12/13/21 09:37 RB Document 12/20/21 11:16 DL [id number] 12/20/21 11:18 DL Document 12/27/21 09:28 KR [id number] 12/27/21 09:29 KR 12/06/21 12/13/21 12/20/21 10:58 09:36 11:16 Wound Care Nurse 3 #1 LLE Post -Foul Odor after Cleansing No -Other Dressing abd,epifix abd pad epifix -Primary Dressing Covered/Secured with Dry Gauze & Dry Gauze,Dry Dry Gauze & Roll Gauze, Gauze & Roll Roll Gauze, Secured with Gauze,Secured Secured with Tape with Tape Tape Left -Tubular Bandage Single Layer Single Layer -Size of Tubigrip Used Size E Size E -Size E ($) 1 1 Treatment Response Procedure Procedure Tolerated Well Tolerated Well Pain Scale: 0-10 Numeric Is Patient Pain Free? Yes Yes Yes - Visit Discharge Discharge Condition Stable Stable Ambulatory Status Ambulatory, Ambulatory, Walker Walker Transportation Private Auto Private Auto Accompanied by daughter Medication Reconcilliation completed & No provided to patient/care provider Clinical Summary of Care Provided Yes Facility Type Home Health Orders Sent Yes 12/27/21 09:28 Wound Care Nurse 3 #1 LLE Post -Foul Odor after Cleansing -Other Dressing -Primary Dressing Covered/Secured with Dry Gauze,Dry Gauze & Roll Gauze,Secured with Tape Left -Tubular Bandage -Size of Tubigrip Used -Size E ($) Treatment Response Pain Scale: 0-10 Numeric Is Patient Pain Free? Yes WC - Visit Discharge Discharge Condition Stable Ambulatory Status Ambulatory, Walker Transportation Private Auto Accompanied by daughter Medication Reconcilliation completed & provided to patient/care provider Clinical Summary of Care Provided Facility Type Orders Sent Assessment/Plan Assessment/Plan (1) Venous stasis ulcer of left lower leg with edema of left lower leg: CODE(S): I83.029 - Varicose veins of left lower extremity with ulcer of unspecified site; I83.892 - Varicose veins of left lower extremity with other complications; L97.929 - Non-pressure chronic ulcer of unspecified part of left lower leg with unspecified severity; R60.9 - Edema, unspecified (2) Diabetes mellitus: CODE(S): E11.9 - Type 2 diabetes mellitus without complications QUALIFIERS: Diabetes mellitus complication detail: with polyneuropathy Diabetes mellitus complication status: with neurologic complications Diabetes mellitus meterman insulin use: without mcfp use Diabetes mellitus type: type 2 Qualified Code(s): E11.42 - Type 2 diabetes mellitus with diabetic polyneuropathy (3) Hypertension: CODE(S): I10 - Essential (primary) hypertension QUALIFIERS: Hypertension type: primary hypertension Qualified Code(s): I10 - Essential (primary) hypertension (4) Essential hypertension: CODE(S): I10 - Essential (primary) hypertension (5) Debility: CODE(S): R53.81 - Other malaise (6) Chronic obstructive pulmonary disease: CODE(S): J44.9 - Chronic obstructive pulmonary disease, unspecified QUALIFIERS: COPD type: unspecified COPD Qualified Code(s): J44.9 - Chronic obstructive pulmonary disease, unspecified PLAN: Plan Debridement performed today in clinic as annotated above. At home wound-care instructions: Epifix #6 was applied today per telecommunications consultant guidelines to wound bed using 100% of product, layered, rehydrated with hydrogel and covered with adaptic touch and secured with steri-strips. She tolerated procedure well. Secondary dressing with gauze and she was instructed to change the outer dressing if drainage comes through but not to disturb or remove adaptic touch/steristrips and to keep the dressings dry and intact and not to get the dressings wet. Due to the delayed healing and her diabetes, I feel that treatment with an advanced wound care product to expedite healing is medically necessary and we will apply for authorization of the use of Epifix to improve her wound healing and decrease the length of time of treatment of her chronic wound. This was approved and Epifix #6 applied today. Compression: Tubigrip compression in single card player-loading: The patient was instructed to avoid pressure and friction on the affected areas. Reposition every 2 hours at minimum. Avoid prolonged standing and/or dangling of legs. When seated, feet should be elevated at chest level. Frequent ambulation is encouraged. Diet: Patient encouraged to increase protein intake while taking caution to avoid high carbohydrate and/or sugar intake. Patient is a former smoker Labs/cultures/imaging: Vascular studies ordered but have not been completed by patient. Follow-up: Return to clinic in 1 week for re-evaluation. Return sooner or report to the emergency room should symptoms worsen, or new symptoms arise.
[2022-01-03 08:39] VITALS: BP 119/55; PULSE 68; RESP 18; TEMP 36.3; BMI 36.4
--- NOTE | 2022-01-03 09:49 | PCM.WC.PN ---
History of Present Illness Date of Service: 01/03/22 Chief Complaint: Venous leg ulcer left lower extremity History of Wound: This is a 76-year-old white female who presents to the wound healing center today with complaint of nonhealing ulceration on her left lower extremity. She has a past medical history significant for chronic hypoxia on supplemental O2, COPD, type 2 diabetes mellitus, CHF, and osteoarthritis of the bilateral knees and GERD. The patient states that her wound initially occurred after tripping over her walker over a month ago. Since then she has followed up with her primary care and has been placed on Keflex and has been utilizing triple antibiotic ointment covering with gauze for the last couple weeks. She states that she has not been utilizing any compression. She recently completed Keflex. She denies any systemic or localized signs of infection at this time. Denies any prior cultures being taken and denies any previous arterial or venous studies. Denies any other aggravating alleviating factors. Past medical, family, and social history reviewed and not pertinent to the current visit and all other systems reviewed and negative with exception of those listed above. Subjective Subjective Kandi tolerated Epifix treatment well. Denies fever, chills, increased drainage, increased pain or increased erythema. Objective Data Objective Data Vital Signs: Vital Signs Temp Pulse Resp BP O2 Flow Rate 97.3 F L 68 18 119/55 L 2 01/03/22 08:39 01/03/22 08:39 01/03/22 08:39 01/03/22 08:39 12/06/21 00:38 Oxygen Flow Rate (L/min) 2 Weight: 96.334 kg Body Mass Index (BMI) 36.4 Physical Exam Const alert, oriented x3 and no apparent distress General Appearance: cooperative and comfortable HEENT normocephalic and head/scalp atraumatic Resp normal respiratory effort Effort and Inspection: able to speak in complete sentences Cardio regular rate and regular rhythm Skin Wounds: wounds noted Wound Narrative: as in clinical panel Psych mental status grossly normal, thought process normal, cooperative and affect normal Debridement Note Debridement Note Wound debrided: Left lower extremity posterior Laterality: Left Type of Debridement: Excisional debridement Anesthesia Used: 4% Lidocaine Solution and 5% Lidocaine Gel Depth: Down to and including healthy tissue and in the subcutaneous layer Percentage of wound debrided: 100 Instrument Used: 5mm curette Tissue Removed: Yellow slough, devitalized tissue Severity: Fat Layer Exposed Amount of bleeding with debridement: Mild Bleeding Controlled with: Compression and gauze Patient tolerated procedure: Patient tolerated procedure well Post-Debridement Measurements and Additional Note: Post-Debridement Measurements/Treatment - Nurse 1 - General Ulcer Assessment Start: 12/06/21 10:27 Freq: Status: Active Protocol: CHING Activity Type Activity Date Activity User E-sign Co-sign Detail Recorded Client Recorded Date Recorded By Document 12/06/21 10:27 RB [id number] 12/06/21 10:31 RB Document 12/13/21 08:35 RB [id number] 12/13/21 08:40 RB Document 12/20/21 10:30 AK [id number] 12/20/21 10:37 AK Document 12/27/21 08:26 KR [id number] 12/27/21 08:34 KR Document 01/03/22 08:39 RB [id number] 01/03/22 08:52 RB 12/06/21 12/13/21 12/20/21 10:27 08:35 10:30 - Today's Visit Information Type of service Follow-up Visit Follow-up Visit Follow-up Visit (Physician/PHOTOGRAPHIC ENLARGER OPERATOR (Physician/PHOTOGRAPHIC ENLARGER OPERATOR (Physician/PHOTOGRAPHIC ENLARGER OPERATOR ) ) ) Arrival Mode Ambulatory, Ambulatory, Ambulatory, Walker Walker Walker Transfer Assistance None None Patient Identification Verified (Name & Yes Yes Yes ) Patient Requires Transmission-Based No No No Precautions Safety Precautions NA Height and Weight Body Mass Index (BMI) 36.4 36.4 36.4 BMI Classification Obese Obese Obese Vital Signs Temperature (97.8 F-99.1 F) 97.3 F L 97 F L 96.9 F L Temperature Source Temporal Temporal Temporal Pulse Rate (60-100) 64 78 73 Pulse Location Monitor Monitor Monitor Respiratory Rate (12-18) 18 18 Respiratory rate source Observation Observation Blood Pressure (90/60-120/80) 136/67 H 112/63 156/80 H Blood Pressure Mean (mm Hg) 90 79 105 Source Monitor Monitor Monitor Position Semi-Fowlers Semi-Fowlers Blood Pressure Location Left Arm Left Arm History Since Last Visit- (Skip if this is Patient's initial visit) Have you changed medications since your No No No last visit? Any new allergies or adverse reactions No No No Had a fall/change in ADL's that may No No No increase risk of falls Signs or symptoms of abuse and/or No No No neglect since last visit Have you been in the hospital since your No No No last visit? Has dressing in place as prescribed Yes Yes Yes Has compression in place as prescribed Yes No Yes Has offloadiing in place as prescribed No Yes N/A Experienced any changes in pain level or No No No management Left Footwear Regular Shoe Right Footwear Regular Shoe Pain Scale: 0-10 Numeric Is Patient Pain Free? No Yes Yes LLE -Description Aching -Intensity 8 -Duration (hours) Acute -Pain Behavior Withdrawal from Touch -Pain Aggravating Factors Walking -Alleviating Factors/Interventions Medication -Effectiveness of Alleviating Factor/ Moderately Intervention effective 12/27/21 01/03/22 08:26 08:39 WC - Today's Visit Information Type of service Follow-up Visit Follow-up Visit (Physician/PHOTOGRAPHIC ENLARGER OPERATOR (Physician/PHOTOGRAPHIC ENLARGER OPERATOR ) ) Arrival Mode Ambulatory Ambulatory, Walker Transfer Assistance None Patient Identification Verified (Name & Yes Yes ) Patient Requires Transmission-Based No Precautions Safety Precautions Height and Weight Body Mass Index (BMI) 36.4 36.4 BMI Classification Obese Obese Vital Signs Temperature (97.8 F-99.1 F) 97.0 F L 97.3 F L Temperature Source Temporal Temporal Pulse Rate (60-100) 88 68 Pulse Location Monitor Monitor Respiratory Rate (12-18) 18 Respiratory rate source Observation Blood Pressure (90/60-120/80) 169/74 H 119/55 L Blood Pressure Mean (mm Hg) 105 76 Source Monitor Monitor Position Semi-Fowlers Semi-Fowlers Blood Pressure Location Right Arm Left Arm History Since Last Visit- (Skip if this is Patient's initial visit) Have you changed medications since your No No last visit? Any new allergies or adverse reactions No No Had a fall/change in ADL's that may No No increase risk of falls Signs or symptoms of abuse and/or No No neglect since last visit Have you been in the hospital since your No No last visit? Has dressing in place as prescribed Yes Yes Has compression in place as prescribed Yes No Has offloadiing in place as prescribed N/A No Experienced any changes in pain level or No No management Left Footwear Regular Shoe Right Footwear Regular Shoe Pain Scale: 0-10 Numeric Is Patient Pain Free? Yes Yes LLE -Description -Intensity -Duration (hours) -Pain Behavior -Pain Aggravating Factors -Alleviating Factors/Interventions -Effectiveness of Alleviating Factor/ Intervention WC - Nurse 1 - General Ulcer Measurement Start: 12/06/21 10:27 Freq: Status: Active Protocol: Activity Type Activity Date Activity User E-sign Co-sign Detail Recorded Client Recorded Date Recorded By Document 12/06/21 10:27 RB [id number] 12/06/21 10:31 RB Document 12/13/21 08:35 RB [id number] 12/13/21 08:40 RB Document 12/20/21 10:30 AK [id number] 12/20/21 10:37 AK Document 12/27/21 08:26 KR [id number] 12/27/21 08:34 KR Document 01/03/22 08:39 RB [id number] 01/03/22 08:52 RB 12/06/21 12/13/21 12/20/21 10:27 08:35 10:30 Wound Center Nurse 1 #1 LLE Post -Combined with other wound No No No -Current Size (cm) - Length 2.3 3.2 3.2 -Current Size (cm) - Width 1 1.3 1 -Current Size (cm) - Depth 0.2 0.1 0.1 -Total Square Cm 2.3 4.16 3.2 -Photo Taken Yes No -Tunneling No No No -Undermining/Tunneling No No No -Circular Undermining No No No -Exudate Amt Large Large Medium -Exudate Type Serosanguineous Serosanguineous Serosanguineous -Wound Margin Distinct, Distinct, Distinct, Outline Outline Outline Attached Attached Attached -Granulation Amt Medium (34-66%) Medium (34-66%) Medium (34-66%) -Granulation Quality [place],Red -Slough/Fibrin Yes Yes Yes -Necrosis Amt Medium (34-66%) Small (1-33%) Medium (34-66%) -Necrotic Tissue Type Adherent Slough Adherent Slough Adherent Slough -Structure Exposed N/A N/A N/A -Texture (Leticia-wound Skin Appearance) Assessed Assessed, No Abnormality, Scarring Assessed -Moisture (Leticia-wound Skin Appearance) Assessed Assessed No Abnormality, Assessed -Color (Leticia-wound Skin Appearance) Assessed Assessed No Abnormality, Assessed -Temperature ([place]icia-wound Skin No Abnormality No Abnormality No Abnormality Appearance) (Pt Warm) (Pt Warm) (Pt Warm) -Tenderness on Palpation (Leticia-wound No No Skin Appearance) -Ulcer Cleansing Wound Cleanser Wound Cleanser Soap and Water -Foul Odor after Cleansing No No No -Anesthetic Used 4% Lidocaine 5% Lidocaine 5% Lidocaine Solution,5% Gel Gel Lidocaine Gel Lower Limb Edema Present Yes No Left Calf (cm) 43.5 39 3.2 Left Ankle (cm) 23 22 12/27/21 01/03/22 08:26 08:39 Wound Center Nurse 1 #1 LLE Post -Combined with other wound No -Current Size (cm) - Length 1 0.7 -Current Size (cm) - Width 0.2 0.3 -Current Size (cm) - Depth 0.1 0.1 -Total Square Cm 0.2 0.21 -Photo Taken Yes -Tunneling No -Undermining/Tunneling No -Circular Undermining No -Exudate Amt Small Medium -Exudate Type Serosanguineous Serosanguineous -Wound Margin Distinct, Distinct, Outline Outline Attached Attached -Granulation Amt Medium (34-66%) -Granulation Quality [place] -Slough/Fibrin Yes -Necrosis Amt Large (67-100%) Small (1-33%) -Necrotic Tissue Type Adherent Slough Adherent Slough -Structure Exposed N/A -Texture ([place]icia-wound Skin Appearance) Assessed, Assessed, Scarring Scarring -Moisture (Leticia-wound Skin Appearance) No Abnormality, Assessed Assessed -Color (Leticia-wound Skin Appearance) No Abnormality, Assessed Assessed -Temperature ([place]icia-wound Skin No Abnormality No Abnormality Appearance) (Pt Warm) (Pt Warm) -Tenderness on Palpation (Leticia-wound No No Skin Appearance) -Ulcer Cleansing Soap and Water Wound Cleanser -Foul Odor after Cleansing No No -Anesthetic Used 4% Lidocaine 5% Lidocaine Solution Gel Lower Limb Edema Present Yes Left Calf (cm) 43 Left Ankle (cm) 23.5 WC - Nurse 2 - General Ulcer CM Notes Start: 12/06/21 10:27 Freq: Status: Active Protocol: Activity Type Activity Date Activity User E-sign Co-sign Detail Recorded Client Recorded Date Recorded By Document 12/06/21 10:40 MW [id number] 12/06/21 10:51 MW Document 12/13/21 09:12 MW [id number] 12/13/21 09:27 MW Document 12/20/21 10:49 MW [id number] 12/20/21 11:00 MW Document 12/27/21 09:10 MW [id number] 12/27/21 09:16 MW Document 01/03/22 08:56 MW [id number] 01/03/22 09:10 MW 12/06/21 12/13/21 12/20/21 10:40 09:12 10:49 Wound Center Nurse 2 #1 LLE Post -Time 10:42 09:16 10:49 -Correct Patient Yes Yes Yes -Correct Side, Site, Position Yes Yes Yes -Correct Procedure Yes Yes Yes -Procedure Performed Yes Yes Yes -Type of Procedure Debridement Debridement Debridement -Clinical Debridement Subcutaneous Subcutaneous Subcutaneous -Tissue Removed Subcutaneous Subcutaneous Subcutaneous -Post Debridement (cm) - Length 3.2 2.9 2.3 -Post Debridement (cm) - Width 1.0 0.8 0.3 -Post Debridement (cm) - Depth 0.2 0.2 0.2 -Total Square (Post) (cm) 3.20 2.32 0.69 -Area of Debridement (cm) - Length 3.2 2.9 2.3 -Area of Debridement (cm) - Width 1.0 0.8 0.3 -Total Square (Area) (cm) 3.20 2.32 0.69 -Tunneling No No No -Undermining/Tunneling No No No -Circular Undermining No No No -Wound/Ulcer Outcome Not Healed Not Healed Not Healed -Ulcer Cleansing Rinsed/ Rinsed/ Rinsed/ Irrigated with Irrigated with Irrigated with Saline Saline Saline -Foul Odor after Cleansing No No No -Bioengineered Tissue Yes Yes Yes -Type of Bioengineered Tissue Epifix Epifix 18mm Epifix 18mm Disc Disc -Expiration Date 08/06/26 09/06/26 10/06/26 -Product Lot Number [id number] -Percent Used 100 100 100 -Lot number of Saline Used [id number] -Bleeding Controlled with Pressure Pressure Pressure -Treatment Response Procedure Procedure Procedure Tolerated Well Tolerated Well Tolerated Well -Offloading No No No -Debridement - Subq, 1st 20sq cm No No No -Apply Skin Sub - 1st 25 sq cm - Legs 1 1 1 -Epifix (per sq cm) 4 -Epifix 18mm Disc 3 3 Pain Scale: 0-10 Numeric Is Patient Pain Free? Yes Yes Yes 12/27/21 01/03/22 09:10 08:56 Wound Center Nurse 2 #1 LLE Post -Time 09:14 08:57 -Correct Patient Yes Yes -Correct Side, Site, Position Yes Yes -Correct Procedure Yes Yes -Procedure Performed Yes Yes -Type of Procedure Debridement Debridement -Clinical Debridement Subcutaneous Subcutaneous -Tissue Removed Subcutaneous Subcutaneous -Post Debridement (cm) - Length 2.5 0.8 -Post Debridement (cm) - Width 0.7 0.2 -Post Debridement (cm) - Depth 0.2 0.2 -Total Square (Post) (cm) 1.75 0.16 -Area of Debridement (cm) - Length 2.5 0.8 -Area of Debridement (cm) - Width 0.7 0.2 -Total Square (Area) (cm) 1.75 0.16 -Tunneling No No -Undermining/Tunneling No No -Circular Undermining No No -Wound/Ulcer Outcome Not Healed Not Healed -Ulcer Cleansing Rinsed/ Rinsed/ Irrigated with Irrigated with Saline Saline -Foul Odor after Cleansing No No -Bioengineered Tissue Yes Yes -Type of Bioengineered Tissue Epifix Epifix 18mm Disc -Expiration Date 09/06/26 10/06/26 -Product Lot Number [id number] -Percent Used 100 100 -Lot number of Saline Used [id number] -Bleeding Controlled with Pressure Pressure -Treatment Response Procedure Procedure Tolerated Well Tolerated Well -Offloading No No -Debridement - Subq, 1st 20sq cm No No -Apply Skin Sub - 1st 25 sq cm - Legs 1 1 -Epifix (per sq cm) 4 -Epifix 18mm Disc 3 Pain Scale: 0-10 Numeric Is Patient Pain Free? Yes Yes - Nurse 3 - General Ulcer D/C NN Start: 12/06/21 10:27 Freq: Status: Active Protocol: Activity Type Activity Date Activity User E-sign Co-sign Detail Recorded Client Recorded Date Recorded By Document 12/06/21 10:58 ML [id number] 12/06/21 10:58 ML Document 12/13/21 09:36 RB [id number] 12/13/21 09:37 RB Document 12/20/21 11:16 DL [id number] 12/20/21 11:18 DL Document 12/27/21 09:28 KR [id number] 12/27/21 09:29 KR Document 01/03/22 09:20 AK [id number] 01/03/22 09:21 AK 12/06/21 12/13/21 12/20/21 10:58 09:36 11:16 Wound Care Nurse 3 #1 LLE Post -Foul Odor after Cleansing No -Primary Dressing Applied -Other Dressing abd,epifix abd pad epifix -Primary Dressing Covered/Secured with Dry Gauze & Dry Gauze,Dry Dry Gauze & Roll Gauze, Gauze & Roll Roll Gauze, Secured with Gauze,Secured Secured with Tape with Tape Tape Left -Tubular Bandage Single Layer Single Layer -Size of Tubigrip Used Size E Size E -Size E ($) 1 1 Treatment Response Procedure Procedure Tolerated Well Tolerated Well Pain Scale: 0-10 Numeric Is Patient Pain Free? Yes Yes Yes - Visit Discharge Discharge Condition Stable Stable Ambulatory Status Ambulatory, Ambulatory, Walker Walker Transportation Private Auto Private Auto Accompanied by daughter Medication Reconcilliation completed & No provided to patient/care provider Clinical Summary of Care Provided Yes Facility Type Home Health Orders Sent Yes 12/27/21 01/03/22 09:28 09:20 Wound Care Nurse 3 #1 LLE Post -Foul Odor after Cleansing -Primary Dressing Applied C Hydrogel ($) -Other Dressing -Primary Dressing Covered/Secured with Dry Gauze,Dry Dry Gauze & Gauze & Roll Roll Gauze, Gauze,Secured Secured with with Tape Tape Left -Tubular Bandage -Size of Tubigrip Used -Size E ($) Treatment Response Pain Scale: 0-10 Numeric Is Patient Pain Free? Yes Yes WC - Visit Discharge Discharge Condition Stable Stable Ambulatory Status Ambulatory, Walker Transportation Private Auto Private Auto Accompanied by daughter Medication Reconcilliation completed & Yes provided to patient/care provider Clinical Summary of Care Provided Yes Facility Type Orders Sent Assessment/Plan Assessment/Plan (1) Venous stasis ulcer of left lower leg with edema of left lower leg: CODE(S): I83.029 - Varicose veins of left lower extremity with ulcer of unspecified site; I83.892 - Varicose veins of left lower extremity with other complications; L97.929 - Non-pressure chronic ulcer of unspecified part of left lower leg with unspecified severity; R60.9 - Edema, unspecified (2) Diabetes mellitus: CODE(S): E11.9 - Type 2 diabetes mellitus without complications QUALIFIERS: Diabetes mellitus type: type 2 Diabetes mellitus detention insulin use: without terminal system operator use Diabetes mellitus complication status: with neurologic complications Diabetes mellitus complication detail: with polyneuropathy Qualified Code(s): E11.42 - Type 2 diabetes mellitus with diabetic polyneuropathy (3) Hypertension: CODE(S): I10 - Essential (primary) hypertension QUALIFIERS: Hypertension type: primary hypertension Qualified Code(s): I10 - Essential (primary) hypertension (4) Essential hypertension: CODE(S): I10 - Essential (primary) hypertension (5) Debility: CODE(S): R53.81 - Other malaise (6) Chronic obstructive pulmonary disease: CODE(S): J44.9 - Chronic obstructive pulmonary disease, unspecified QUALIFIERS: COPD type: unspecified COPD Qualified Code(s): J44.9 - Chronic obstructive pulmonary disease, unspecified PLAN: Plan Debridement performed today in clinic as annotated above. At home wound-care instructions: Epifix #7 was applied today per reconciling clerk guidelines to wound bed using 100% of product, layered, rehydrated with hydrogel and covered with adaptic touch and secured with steri-strips. She tolerated procedure well. Secondary dressing with gauze and she was instructed to change the outer dressing if drainage comes through but not to disturb or remove adaptic touch/steristrips and to keep the dressings dry and intact and not to get the dressings wet. She will apply additional hydrogel next Thursday and change the outer dressing as needed. Due to the delayed healing and her diabetes, I feel that treatment with an advanced wound care product to expedite healing is medically necessary and we will apply for authorization of the use of Epifix to improve her wound healing and decrease the length of time of treatment of her chronic wound. This was approved and Epifix #7 applied today. Compression: Tubigrip compression in single heel layer-loading: The patient was instructed to avoid pressure and friction on the affected areas. Reposition every 2 hours at minimum. Avoid prolonged standing and/or dangling of legs. When seated, feet should be elevated at chest level. Frequent ambulation is encouraged. Diet: Patient encouraged to increase protein intake while taking caution to avoid high carbohydrate and/or sugar intake. Patient is a former smoker Labs/cultures/imaging: Vascular studies ordered but have not been completed by patient. Follow-up: Return to clinic in 2 weeks for re-evaluation. Return sooner or report to the emergency room should symptoms worsen, or new symptoms arise.
== END 2022-01-05 23:59 | disposition home or self-care (01) ==
LOC: WC 08:30
PROVIDERS: PCP Family Medicine; Visit Provider Family Medicine
DX: I83.028 Varicose veins of left lower extremity with ulcer other part of lower leg (principal); L97.822 Non-pressure chronic ulcer of other part of left lower leg with fat layer exposed; J44.9 Chronic obstructive pulmonary disease, unspecified; I11.0 Hypertensive heart disease with heart failure; I50.9 Heart failure, unspecified; E11.42 Type 2 diabetes mellitus with diabetic polyneuropathy; M17.0 Bilateral primary osteoarthritis of knee; R53.81 Other malaise; I87.2 Venous insufficiency (chronic) (peripheral); K21.9 Gastro-esophageal reflux disease without esophagitis; Z79.899 Other long term (current) drug therapy
CPT/HCPCS: 15271; Q4186

== ENCOUNTER 2022-01-24 10:14 | Outpatient (RCR) | payer MEDICARE, SELFPAY ==
[2022-01-06 00:29] VITALS: BP 119/55; PULSE 68; RESP 18; TEMP 36.3; BMI 36.4
[2022-01-24 10:21] VITALS: BP 126/77; PULSE 69; TEMP 35.7; BMI 36.4
--- NOTE | 2022-01-24 14:49 | PN.PCM_ITS ---
History of Present Illness Date of Service: 01/24/22 Chief Complaint: Venous leg ulcer left lower extremity History of Wound: This is a 76-year-old white female who presents to the wound healing center today with complaint of nonhealing ulceration on her left lower extremity. She has a past medical history significant for chronic hypoxia on supplemental O2, COPD, type 2 diabetes mellitus, CHF, and osteoarthritis of the bilateral knees and GERD. The patient states that her wound initially occurred after tripping over her walker over a month ago. Since then she has followed up with her primary care and has been placed on Keflex and has been utilizing triple antibiotic ointment covering with gauze for the last couple weeks. She states that she has not been utilizing any compression. She recently completed Keflex. She denies any systemic or localized signs of infection at this time. Denies any prior cultures being taken and denies any previous arterial or venous studies. Denies any other aggravating alleviating factors. Past medical, family, and social history reviewed and not pertinent to the current visit and all other systems reviewed and negative with exception of those listed above. Subjective Subjective Kandi tolerated Epifix treatment well. Denies fever, chills, increased drainage, increased pain or increased erythema. Objective Data Objective Data Vital Signs: Vital Signs Temp Pulse Resp BP O2 Flow Rate 96.2 F L 69 18 126/77 H 2 01/24/22 10:21 01/24/22 10:21 01/06/22 00:29 01/24/22 10:21 01/06/22 00:29 Oxygen Flow Rate (L/min) 2 Weight: 96.334 kg Body Mass Index (BMI) 36.4 Physical Exam Const alert, oriented x3 and no apparent distress General Appearance: cooperative and comfortable HEENT normocephalic and head/scalp atraumatic Resp normal respiratory effort Effort and Inspection: able to speak in complete sentences Cardio regular rate and regular rhythm Skin Wounds: wounds noted Wound Narrative: as in clinical panel Psych mental status grossly normal, thought process normal, cooperative and affect normal Debridement Note Debridement Note Wound debrided: Left lower extremity posterior Laterality: Left Type of Debridement: Excisional debridement Anesthesia Used: 4% Lidocaine Solution and 5% Lidocaine Gel Depth: Down to and including healthy tissue and in the subcutaneous layer Percentage of wound debrided: 100 Instrument Used: 5mm curette Tissue Removed: Yellow slough, devitalized tissue Severity: Fat Layer Exposed Amount of bleeding with debridement: Mild Bleeding Controlled with: Compression and gauze Patient tolerated procedure: Patient tolerated procedure well Post-Debridement Measurements and Additional Note: Post-Debridement Measurements/Treatment - Nurse 1 - General Ulcer Assessment Start: 01/24/22 10:21 Freq: Status: Active Protocol: CHING Activity Type Activity Date Activity User E-sign Co-sign Detail Recorded Client Recorded Date Recorded By Document 01/24/22 10:21 FAIZAN [id number] 01/24/22 10:29 WA 01/24/22 10:21 - Today's Visit Information Type of service Follow-up Visit (Physician/ASTRO TECHNICIAN ) Arrival Mode Ambulatory, Walker Patient Identification Verified (Name & Yes ) Patient Requires Transmission-Based No Precautions Safety Precautions NA Height and Weight Body Mass Index (BMI) 36.4 BMI Classification Obese Vital Signs Temperature (97.8 F-99.1 F) 96.2 F L Temperature Source Temporal Pulse Rate (60-100) 69 Pulse Location Monitor Blood Pressure (90/60-120/80) 126/77 H Blood Pressure Mean (mm Hg) 93 Source Monitor History Since Last Visit- (Skip if this is Patient's initial visit) Have you changed medications since your No last visit? Any new allergies or adverse reactions No Had a fall/change in ADL's that may No increase risk of falls Signs or symptoms of abuse and/or No neglect since last visit Have you been in the hospital since your No last visit? Has dressing in place as prescribed Yes Has compression in place as prescribed N/A Has offloadiing in place as prescribed N/A Experienced any changes in pain level or No management Left Footwear Regular Shoe Right Footwear Regular Shoe Pain Scale: 0-10 Numeric Is Patient Pain Free? Yes [facility] Nurse 1 - General Ulcer Measurement Start: 01/24/22 10:21 Freq: Status: Active Protocol: Activity Type Activity Date Activity User E-sign Co-sign Detail Recorded Client Recorded Date Recorded By Document 01/24/22 10:21 FAZIAN [id number] 01/24/22 10:29 FAIZAN 01/24/22 10:21 Wound Center Nurse 1 #1 LLE Post -Combined with other wound No -Current Size (cm) - Length 0.3 -Current Size (cm) - Width 0.2 -Current Size (cm) - Depth 0.1 -Total Square Cm 0.06 -Photo Taken Yes -Tunneling No -Undermining/Tunneling No -Circular Undermining No -Exudate Amt Medium -Exudate Type Serosanguineous -Wound Margin Distinct, Outline Attached -Granulation Amt Medium (34-66%) -Granulation Quality [place] -Slough/Fibrin Yes -Necrosis Amt Small (1-33%) -Necrotic Tissue Type Adherent Slough -Structure Exposed N/A -Texture (Leticia-wound Skin Appearance) Assessed, Scarring -Color (Leticia-wound Skin Appearance) Assessed -Temperature (Leticia-wound Skin No Abnormality Appearance) (Pt Warm) -Tenderness on Palpation (Leticia-wound No Skin Appearance) -Ulcer Cleansing Wound Cleanser -Foul Odor after Cleansing No -Anesthetic Used 5% Lidocaine Gel Lower Limb Edema Present Yes Left Calf (cm) 44.5 Left Ankle (cm) 24.5 WC - Nurse 2 - General Ulcer CM Notes Start: 01/24/22 10:21 Freq: Status: Active Protocol: Activity Type Activity Date Activity User E-sign Co-sign Detail Recorded Client Recorded Date Recorded By Document 01/24/22 11:10 MW [id number] 01/24/22 11:22 MW 01/24/22 11:10 Wound Center Nurse 2 #1 LLE Post -Time 11:11 -Correct Patient Yes -Correct Side, Site, Position Yes -Correct Procedure Yes -Procedure Performed Yes -Type of Procedure Debridement -Clinical Debridement Subcutaneous -Tissue Removed Subcutaneous -Post Debridement (cm) - Length 0.5 -Post Debridement (cm) - Width 0.5 -Post Debridement (cm) - Depth 0.1 -Total Square (Post) (cm) 0.25 -Area of Debridement (cm) - Length 0.5 -Area of Debridement (cm) - Width 0.5 -Total Square (Area) (cm) 0.25 -Tunneling No -Undermining/Tunneling No -Circular Undermining No -Wound/Ulcer Outcome Not Healed -Ulcer Cleansing Rinsed/ Irrigated with Saline -Foul Odor after Cleansing No -Bioengineered Tissue Yes -Type of Bioengineered Tissue Epifix 18mm Disc -Expiration Date 11/06/26 -Product Lot Number [id number] -Percent Used 100 -Lot number of Saline Used [id number] -Bleeding Controlled with Pressure -Treatment Response Procedure Tolerated Well -Offloading No -Debridement - Subq, 1st 20sq cm No -Apply Skin Sub - 1st 25 sq cm - Legs 1 -Epifix 18mm Disc 3 Pain Scale: 0-10 Numeric Is Patient Pain Free? Yes Assessment/Plan Assessment/Plan (1) Venous stasis ulcer of left lower leg with edema of left lower leg: CODE(S): I83.029 - Varicose veins of left lower extremity with ulcer of unspecified site; I83.892 - Varicose veins of left lower extremity with other complications; L97.929 - Non-pressure chronic ulcer of unspecified part of left lower leg with unspecified severity; R60.9 - Edema, unspecified (2) Diabetes mellitus: CODE(S): E11.9 - Type 2 diabetes mellitus without complications QUALIFIERS: Diabetes mellitus type: type 2 Diabetes mellitus nursing home insulin use: without nursing home use Diabetes mellitus complication status: with neurologic complications Diabetes mellitus complication detail: with polyneuropathy Qualified Code(s): E11.42 - Type 2 diabetes mellitus with diabetic polyneuropathy (3) Hypertension: CODE(S): I10 - Essential (primary) hypertension QUALIFIERS: Hypertension type: primary hypertension Qualified Code(s): I10 - Essential (primary) hypertension (4) Essential hypertension: CODE(S): I10 - Essential (primary) hypertension (5) Debility: CODE(S): R53.81 - Other malaise (6) Chronic obstructive pulmonary disease: CODE(S): J44.9 - Chronic obstructive pulmonary disease, unspecified QUALIFIERS: COPD type: unspecified COPD Qualified Code(s): J44.9 - Chronic obstructive pulmonary disease, unspecified PLAN: Plan Debridement performed today in clinic as annotated above. At home wound-care instructions: Epifix #8 was applied today per offshore wind operations manager guidelines to wound bed using 100% of product, rehydrated with hydrogel and covered with adaptic touch and secured with steri-strips. She tolerated procedure well. Secondary dressing with gauze and she was instructed to change the outer dressing if drainage comes through but not to disturb or remove adaptic touch/steristrips and to keep the dressings dry and intact and not to get the dressings wet. She will apply additional hydrogel next Thursday and change the outer dressing as needed. Due to the delayed healing and her diabetes, I feel that treatment with an advanced wound care product to expedite healing is medically necessary and we will apply for authorization of the use of Epifix to improve her wound healing and decrease the length of time of treatment of her chronic wound. This was approved and Epifix #8 applied today. Compression: Tubigrip compression in single floor layer tile-loading: The patient was instructed to avoid pressure and friction on the affected areas. Reposition every 2 hours at minimum. Avoid prolonged standing and/or dangling of legs. When seated, feet should be elevated at chest level. Frequent ambulation is encouraged. Diet: Patient encouraged to increase protein intake while taking caution to avoid high carbohydrate and/or sugar intake. Patient is a former smoker Labs/cultures/imaging: Vascular studies ordered but have not been completed by patient. Follow-up: Return to clinic in 2 weeks for re-evaluation. Return sooner or report to the emergency room should symptoms worsen, or new symptoms arise.
== END 2022-02-05 23:59 | disposition home or self-care (01) ==
LOC: WC 10:14
PROVIDERS: PCP Family Medicine; Visit Provider Family Medicine
DX: I83.029 Varicose veins of left lower extremity with ulcer of unspecified site (principal); L97.822 Non-pressure chronic ulcer of other part of left lower leg with fat layer exposed; J44.9 Chronic obstructive pulmonary disease, unspecified; I11.0 Hypertensive heart disease with heart failure; I50.9 Heart failure, unspecified; E11.42 Type 2 diabetes mellitus with diabetic polyneuropathy; R09.02 Hypoxemia; K21.9 Gastro-esophageal reflux disease without esophagitis; M17.0 Bilateral primary osteoarthritis of knee; Z99.81 Dependence on supplemental oxygen; Z79.84 Long term (current) use of oral hypoglycemic drugs; Z79.1 Long term (current) use of non-steroidal anti-inflammatories (NSAID); Z79.899 Other long term (current) drug therapy
CPT/HCPCS: 15271; Q4186

== ENCOUNTER 2022-02-07 08:38 | Outpatient (RCR) | payer MEDICARE, SELFPAY ==
[2022-02-06 00:31] VITALS: BP 126/77; PULSE 69; RESP 18; TEMP 35.7; BMI 36.4
[2022-02-07 08:40] VITALS: BP 126/82; PULSE 72; TEMP 36.3; BMI 36.4
--- NOTE | 2022-02-07 11:09 | PCM.WC.PN ---
History of Present Illness Date of Service: 02/07/22 Chief Complaint: Venous leg ulcer left lower extremity History of Wound: This is a 76-year-old white female who presents to the wound healing center today with complaint of nonhealing ulceration on her left lower extremity. She has a past medical history significant for chronic hypoxia on supplemental O2, COPD, type 2 diabetes mellitus, CHF, and osteoarthritis of the bilateral knees and GERD. The patient states that her wound initially occurred after tripping over her walker over a month ago. Since then she has followed up with her primary care and has been placed on Keflex and has been utilizing triple antibiotic ointment covering with gauze for the last couple weeks. She states that she has not been utilizing any compression. She recently completed Keflex. She denies any systemic or localized signs of infection at this time. Denies any prior cultures being taken and denies any previous arterial or venous studies. Denies any other aggravating alleviating factors. Past medical, family, and social history reviewed and not pertinent to the current visit and all other systems reviewed and negative with exception of those listed above. Subjective Subjective Kandi tolerated Epifix treatment well. She is healed today. Denies fever, chills, increased drainage, increased pain or increased erythema. Objective Data Objective Data Vital Signs: Vital Signs Temp Pulse Resp BP O2 Flow Rate 97.3 F L 72 18 126/82 H 2 02/07/22 08:40 02/07/22 08:40 02/06/22 00:31 02/07/22 08:40 02/06/22 00:31 Oxygen Flow Rate (L/min) 2 Weight: 96.334 kg Body Mass Index (BMI) 36.4 Physical Exam Const alert, oriented x3 and no apparent distress General Appearance: cooperative and comfortable HEENT normocephalic and head/scalp atraumatic Resp normal respiratory effort Effort and Inspection: able to speak in complete sentences Cardio regular rate and regular rhythm Skin Wounds: wounds noted Wound Narrative: as in clinical panel Psych mental status grossly normal, thought process normal, cooperative and affect normal Debridement Note Debridement Note Wound debrided: Left lower extremity posterior Laterality: Left Tissue Removed: Yellow slough, devitalized tissue No debridement was completed: No debridement was completed today (wound is healed) Post-Debridement Measurements and Additional Note: Post-Debridement Measurements/Treatment WC - Nurse 1 - General Ulcer Assessment Start: 02/07/22 08:39 Freq: Status: Active Protocol: CHING Activity Type Activity Date Activity User E-sign Co-sign Detail Recorded Client Recorded Date Recorded By Document 02/07/22 08:40 FER [id number] 02/07/22 08:43 FER 02/07/22 08:40 - Today's Visit Information Type of service Follow-up Visit (Physician/FREIGHT FLOW SALES LEADER ) Arrival Mode Ambulatory, Walker Patient Identification Verified (Name & Yes ) Height and Weight Body Mass Index (BMI) 36.4 BMI Classification Obese Vital Signs Temperature (97.8 F-99.1 F) 97.3 F L Temperature Source Temporal Pulse Rate (60-100) 72 Pulse Location Monitor Blood Pressure (90/60-120/80) 126/82 H Blood Pressure Mean (mm Hg) 96 Source Monitor Position Sitting Blood Pressure Location Right Arm History Since Last Visit- (Skip if this is Patient's initial visit) Have you changed medications since your No last visit? Any new allergies or adverse reactions No Had a fall/change in ADL's that may No increase risk of falls Signs or symptoms of abuse and/or No neglect since last visit Have you been in the hospital since your No last visit? Has dressing in place as prescribed Yes Has compression in place as prescribed N/A Has offloadiing in place as prescribed N/A Experienced any changes in pain level or No management Left Footwear Regular Shoe Right Footwear Regular Shoe Pain Scale: 0-10 Numeric Is Patient Pain Free? Yes - Nurse 1 - General Ulcer Measurement Start: 02/07/22 08:39 Freq: Status: Active Protocol: Activity Type Activity Date Activity User E-sign Co-sign Detail Recorded Client Recorded Date Recorded By Document 02/07/22 08:40 FER [id number] 02/07/22 08:43 FER 02/07/22 08:40 Wound Center Nurse 1 #1 LLE Post -Current Size (cm) - Length 0.1 -Current Size (cm) - Width 0.1 -Current Size (cm) - Depth 0.1 -Total Square Cm 0.01 -Exudate Amt None Present -Wound Margin Distinct, Outline Attached -Granulation Amt None Present (0 %) -Necrosis Amt None Present (0 %) -Texture (Leticia-wound Skin Appearance) Assessed, Scarring -Moisture (Leticia-wound Skin Appearance) Assessed,Dry/ Scaly -Color (Leticia-wound Skin Appearance) No Abnormality, Assessed -Temperature (Leticia-wound Skin No Abnormality Appearance) (Pt Warm) -Tenderness on Palpation (Leticia-wound No Skin Appearance) -Ulcer Cleansing Rinsed/ Irrigated with Saline -Foul Odor after Cleansing No -Anesthetic Used 5% Lidocaine Gel - Nurse 2 - General Ulcer CM Notes Start: 02/07/22 08:39 Freq: Status: Active Protocol: Activity Type Activity Date Activity User E-sign Co-sign Detail Recorded Client Recorded Date Recorded By Document 02/07/22 09:04 MW [id number] 02/07/22 09:05 MW 02/07/22 09:04 Wound Center Nurse 2 -Time 09:05 -Correct Patient Yes -Correct Side, Site, Position Yes -Correct Procedure Yes -Procedure Performed No -Tunneling No -Undermining/Tunneling No -Circular Undermining No -Wound/Ulcer Outcome Healed- Epithelialized Pain Scale: 0-10 Numeric Is Patient Pain Free? Yes - Nurse 3 - General Ulcer D/C NN Start: 02/07/22 08:39 Freq: Status: Active Protocol: Activity Type Activity Date Activity User E-sign Co-sign Detail Recorded Client Recorded Date Recorded By Document 02/07/22 09:05 [id number] 02/07/22 09:06 MW 02/07/22 09:05 Wound Care Nurse 3 #1 LLE Post -Ulcer Cleansing Not Cleansed -Foul Odor after Cleansing No -Negative Pressure Wound Therapy N/A -Primary Dressing Applied Mepilex Border -Mepilex Border 2 Pain Scale: 0-10 Numeric Is Patient Pain Free? Yes Teaching: Wound Center Discharge Instructions -Person Taught Patient,Family -Teaching Method Discussion -Response to teaching Verbalize understanding Dressing Your Wound -Person Taught Patient,Family -Teaching Method Discussion, Demonstration -Response to teaching Verbalize understanding WC - Visit Discharge Discharge Condition Stable Ambulatory Status Ambulatory, Walker Transportation Private Auto Accompanied by daughter Medication Reconcilliation completed & No provided to patient/care provider Clinical Summary of Care Provided Yes Assessment/Plan Assessment/Plan (1) Venous stasis ulcer of left lower leg with edema of left lower leg: CODE(S): I83.029 - Varicose veins of left lower extremity with ulcer of unspecified site; I83.892 - Varicose veins of left lower extremity with other complications; L97.929 - Non-pressure chronic ulcer of unspecified part of left lower leg with unspecified severity; R60.9 - Edema, unspecified (2) Diabetes mellitus: CODE(S): E11.9 - Type 2 diabetes mellitus without complications QUALIFIERS: Diabetes mellitus type: type 2 Diabetes mellitus terminal supervisor insulin use: without residential use Diabetes mellitus complication status: with neurologic complications Diabetes mellitus complication detail: with polyneuropathy Qualified Code(s): E11.42 - Type 2 diabetes mellitus with diabetic polyneuropathy (3) Hypertension: CODE(S): I10 - Essential (primary) hypertension QUALIFIERS: Hypertension type: primary hypertension Qualified Code(s): I10 - Essential (primary) hypertension (4) Essential hypertension: CODE(S): I10 - Essential (primary) hypertension (5) Debility: CODE(S): R53.81 - Other malaise (6) Chronic obstructive pulmonary disease: CODE(S): J44.9 - Chronic obstructive pulmonary disease, unspecified QUALIFIERS: COPD type: unspecified COPD Qualified Code(s): J44.9 - Chronic obstructive pulmonary disease, unspecified PLAN: Hailey Chau's wound is healed. At home wound-care instructions: Cover with gauze or silicone foam dressing for the next week. Use lotion to maintain moisture of skin and avoid drying out and cracking. Compression: Tubigrip compression in single layer or compression stocking 20-30 mm Hg. Off-loading: The patient was instructed to avoid pressure and friction on the affected areas. Reposition every 2 hours at minimum. Avoid prolonged standing and/or dangling of legs. When seated, feet should be elevated at chest level. Frequent ambulation is encouraged. Diet: Patient encouraged to increase protein intake while taking caution to avoid high carbohydrate and/or sugar intake. Patient is a former smoker Labs/cultures/imaging: Vascular studies ordered but have not been completed by patient. Follow-up: She will be discharged from wound care at this time. It has been a pleasure treating her.
== END 2022-02-13 08:15 | disposition home or self-care (01) ==
LOC: WC 08:38
PROVIDERS: PCP Family Medicine; Visit Provider Family Medicine
DX: Z09 Encounter for follow-up examination after completed treatment for conditions other than malignant neoplasm (principal); J44.9 Chronic obstructive pulmonary disease, unspecified; I11.0 Hypertensive heart disease with heart failure; I50.9 Heart failure, unspecified; E11.42 Type 2 diabetes mellitus with diabetic polyneuropathy; I83.92 Asymptomatic varicose veins of left lower extremity; I87.2 Venous insufficiency (chronic) (peripheral); K21.9 Gastro-esophageal reflux disease without esophagitis; R53.81 Other malaise; M17.0 Bilateral primary osteoarthritis of knee; Z79.1 Long term (current) use of non-steroidal anti-inflammatories (NSAID); Z79.84 Long term (current) use of oral hypoglycemic drugs; Z79.899 Other long term (current) drug therapy
CPT/HCPCS: 99213; G0463

== ENCOUNTER 2022-08-01 09:30 | Outpatient (RCR) | payer MEDICARE, SELFPAY ==
[2022-07-25 09:08] VITALS: BP 146/84; PULSE 69; RESP 24; TEMP 36; BMI 34.7
--- NOTE | 2022-07-25 14:37 | PCM.WC.HP ---
History of Present Illness Date of Service: 07/25/22 Chief Complaint: Venous leg ulcer left lower extremity and right lower extremity History of Wound: This is a 76-year-old white female who presents to the wound healing center today with complaint of nonhealing ulceration of her right and left lower extremities. She has a past medical history significant for chronic hypoxia on supplemental O2, COPD, type 2 diabetes mellitus, CHF, and osteoarthritis of the bilateral knees and GERD. The patient states that her wounds initially occurred after scratching the back of her leg on something almost a month ago. She saw her PCP last week and was started on Cephalexin QID x 10 days. She was 2 days left of treatment. She has not had any improvement in her pain or ulcers since starting the antibiotic. She has been applying triple antibiotic ointment covering with gauze for the last few days but had been using hydrogel and nonadherent dressings prior to that. She states that she has not been utilizing any compression due to pain but has been elevating her legs more frequently and using a wedge pillow. She denies any systemic or localized signs of infection at this time. Denies any prior cultures being taken. [facility] Medical History COPD (chronic obstructive pulmonary disease) Debility Degenerative disc disease, lumbar Depression Edema of both lower extremities Essential hypertension Fibromyalgia Generalized muscle weakness GERD (gastroesophageal reflux disease) Morbid obesity with BMI of 40.0-44.9, adult Muscle spasm MICHEL (obstructive sleep apnea) Osteoarthritis Right knee pain RLS (restless legs syndrome) Type 2 diabetes mellitus without complication Venous stasis ulcer of left lower leg with edema of left lower leg Home Medications albuterol sulfate 90 mcg/actuation aerosol inhaler 2 puff inhalation Q4H PRN Sob &/Or Wheezing 10/14/18 [History Last Taken Unknown] meloxicam 7.5 mg tablet 7.5 mg PO DAILY Arthritis 10/14/18 [History Last Taken Unknown] metformin 500 mg tablet 500 mg PO DAILY Blood sugar 10/14/18 [History Last Taken Unknown] ropinirole 0.5 mg tablet 1.5 mg PO QHS Restless leg 10/14/18 [History Last Taken Unknown] Oxygen ##1 10/27/18 [History Last Taken Unknown] budesonide 0.5 mg/2 mL suspension for nebulization 1 dose inhalation BID Breathing 12/22/18 [History Last Taken Unknown] ipratropium 0.5 mg-albuterol 3 mg (2.5 mg base)/3 mL nebulization soln 1 dose inhalation 4X/DAY Breathing 12/22/18 [History Last Taken Unknown] hydrochlorothiazide 12.5 mg capsule 25 mg PO DAILY BP 07/25/21 [History Last Taken Unknown] metoprolol tartrate 50 mg tablet 50 mg PO DAILY BP 07/25/21 [History Last Taken Unknown] oxybutynin chloride 5 mg tablet 5 mg PO DAILY Bladder 07/25/21 [History Last Taken Unknown] sertraline 50 mg tablet 50 mg PO DAILY Mood 07/25/21 [History Last Taken Unknown] acetaminophen 500 mg tablet 1,000 mg PO Q6H PRN PRN Pain Score 1-3 #0 tabs 08/07/21 [Rx Last Taken Unknown] gabapentin 100 mg capsule 100 mg PO TIDCM 30 days #90 caps 08/07/21 [Rx Last Taken Unknown] oxycodone 5 mg tablet 5 mg PO Q4H PRN PRN Pain Score 6-10 7 days #42 tabs 08/07/21 [Rx Last Taken Unknown] sennosides 8.6 mg-docusate sodium 50 mg tablet (Stool Softener-Stimulant Laxative) 1 tab PO BID 30 days #60 tabs 08/07/21 [Rx Last Taken Unknown] cephalexin 500 mg capsule 500 mg PO Q6 #40 CAPSULES 08/30/21 [Rx Last Taken Unknown] Allergy/AdvReac Type Severity Reaction Status Date / Time lisinopril AdvReac Intermediate cough Verified 07/25/22 09:29 pregabalin [From Lyrica] AdvReac Swelling Verified 07/25/22 09:29 Family History Mother Cancer lymphoma Father COPD (chronic obstructive pulmonary disease) Cancer bone Son Heart disease ischemic heart disease Surgical History History of appendectomy History of hysterectomy History of tonsillectomy Social History household members: none Smoking Status: Former smoker how long ago did patient quit smokin.5 years ago alcohol intake: current alcohol intake frequency: holidays/special occasions only substance use type: does not use caffeine: Yes Type: coffee Number of servings: 1 ROS Constitutional Constitutional: Denies chills, fatigue or fever(s) Eyes Eyes: Denies blurry vision, change in vision or loss of vision ENT HEENT: Denies dysphagia, hearing loss or sore throat Cardiovascular Cardiovascular: Denies chest pain, edema or palpitations Respiratory/Chest Respiratory/Chest: Denies dry cough, dyspnea, dyspnea on exertion, productive cough or wheezing Gastrointestinal Gastrointestinal: Denies diarrhea, nausea or vomiting Genitourinary Genitourinary: Denies dysuria or polyuria Musculoskeletal Musculoskeletal: Denies arthralgias, joint stiffness or muscle weakness Integumentary Integumentary: Reports erythema and wounds Neurologic Neurologic: Denies dizziness, memory loss or weakness Psychiatric Psychiatric: Denies homicidal ideation or suicidal ideation Endocrine Endocrinology: Denies polydipsia, polyphagia or polyuria Hematologic/Lymphatic Hematologic/Lymphatic: Denies easy bleeding or easy bruising Allergic/Immunologic Allergic/Immunologic: Denies throat swelling, tongue swelling or urticaria Vital Signs Vital Signs Vital Signs: 07/25/22 09:08 Temperature 96.8 F L Temperature Source Temporal Pulse Rate 69 Respiratory Rate 24 H Blood Pressure 146/84 H Blood Pressure Mean 104 Blood Pressure Source Monitor Weight Weight: 91.777 kg Body Mass Index (BMI) 34.7 Physical Exam Const alert, oriented x3 and no apparent distress General Appearance: cooperative and comfortable HEENT normocephalic and head/scalp atraumatic Resp normal respiratory effort Effort and Inspection: able to speak in complete sentences Cardio regular rate and regular rhythm Skin Wounds: wounds noted Wound Narrative: as in clinical panel Psych mental status grossly normal, thought process normal, cooperative and affect normal Debridement Note Debridement Note Wound debrided: right posterior LE Laterality: Right Type of Debridement: Excisional debridement Anesthesia Used: 4% Lidocaine Solution, 5% Lidocaine Gel and Cetacaine Depth: Down to and including healthy tissue and in the subcutaneous layer Percentage of wound debrided: 100 Instrument Used: #15 blade and Forceps Tissue Removed: Yellow slough, devitalized tissue Severity: Fat Layer Exposed Amount of bleeding with debridement: Mild Bleeding Controlled with: Compression and gauze Patient tolerated procedure: Patient tolerated procedure well Post-Debridement Measurements and Additional Note: Post-Debridement Measurements/Treatment WC - Nurse 1 - General Ulcer Assessment Start: 07/25/22 09:08 Freq: Status: Active Protocol: WC.LOWEXT Activity Type Activity Date Activity User E-sign Co-sign Detail Recorded Client Recorded Date Recorded By Document 07/25/22 09:08 DL [id number] 07/25/22 09:21 DL Edit Result 07/25/22 09:08 DL (1) [id number] 07/25/22 09:37 DL (1) Height => 5 ft 4 in Weight => 91.777 kg Weight in Pounds => 202.3 lbs Body Mass Index (BMI) => 34.7 BMI Classification => Obese BSA - Petra => 1.97 Left - Posterior Tibial Palpable => No - Posterior Tibial Doppler => Multiphasic - Dorsalis Pedis Palpable => Yes - Dorsalis Pedis Doppler => Multiphasic - Extremity Color => Hyperpigmented - Hair Growth on Legs => No - Hair Growth on Toes => No - Temperature of Extremity => Warm - Capillary Refill => Greater than 3 => Seconds - Other Deformity => No - Prior Foot Ulcer => No - Charcot Joint => No - Prior Amputation => No - Thick => No - Discolored => No - Deformed => No - Improper Length & Hygeine => No Right - Popliteal Doppler => Multiphasic - Posterior Tibial Palpable => No - Posterior Tibial Doppler => Multiphasic - Dorsalis Pedis Palpable => Yes - Extremity Color => Hyperpigmented - Hair Growth on Legs => No - Hair Growth on Toes => No - Temperature of Extremity => Warm - Capillary Refill => Less than 3 => Seconds - Dependent Rubor => No - Blanched when Elevated => No - Lipodermatosclerosis => No - Other Deformity => No - Prior Foot Ulcer => No - Charcot Joint => No - Prior Amputation => No - Thick => No - Discolored => No - Deformed => No - Improper Length & Hygeine => No Feet - Top Side and Bottom => <Entered> (a) Preferred language => Maldivian Able to Read => Yes Able to Write => Yes Communication Tools => None Right Hearing Abillity => Normal Left Hearing Abillity => Normal Visual Assistive Devices => Glasses Preferences => Verbal,Written, => Demonstration Readiness To Learn => Good Willingness to Engage in Self Management => Med Activies Readiness to Engage in Self Management => Med Activities Anxiety Level => Anxious Cooperation => Cooperative Perception => Coherent Interest in Health Problem => Asks Questions Education Importance => Acknowledges Need Does Patient Smoke tobacco or other => No substances Smoking Status => Former smoker Is Patient Diabetic => Yes Recent Decline in Ability to Perform => Ambulation Cultural/Anglican Needs that may affect => No Treatment Plan Would you allow our [facility] ed teacher to => No meet you for the purpose of spiritual/ emotional support? Sas Statistical Programmer to contact place of amish => No Diagnostic Tests Ordered - Person Taught => Patient,Family Discharge Instructions - Person Taught => Patient,Family Dressing Your Wound - Person Taught => Patient,Family *Welcome to the Wound Center - Person Taught => Patient,Family 07/25/22 09:08 WC - Today's Visit Information Type of service Initial Visit Arrival Mode Ambulatory, Walker Transfer Assistance None Patient Identification Verified (Name & Yes ) Patient Requires Transmission-Based No Precautions Finger Stick Blood Sugar(mg/dl) (if doesnt check indicated): Blood Sugar Stated by Patient Height and Weight Height 5 ft 4 in Weight 91.777 kg Weight in Pounds 202.3 lbs Body Mass Index (BMI) 34.7 BMI Classification Obese BSA - Petra 1.97 Vital Signs Temperature (97.8 F-99.1 F) 96.8 F L Temperature Source Temporal Pulse Rate (60-100) 69 Pulse Location Monitor Respiratory Rate (12-18) 24 H Respiratory rate source Observation Blood Pressure (90/60-120/80) 146/84 H Blood Pressure Mean 104 Source Monitor History Since Last Visit- (Skip if this is Patient's initial visit) Left Footwear Regular Shoe Right Footwear Regular Shoe Pain Scale: 0-10 Numeric Is Patient Pain Free? Yes Lower Extremity Assessment/ Foot Assessment/ Toe Nail Assessment Left -Posterior Tibial Palpable No -Posterior Tibial Doppler Multiphasic -Dorsalis Pedis Palpable Yes -Dorsalis Pedis Doppler Multiphasic -Extremity Color Hyperpigmented -Hair Growth on Legs No -Hair Growth on Toes No -Temperature of Extremity Warm -Capillary Refill Greater than 3 Seconds -Other Deformity No -Prior Foot Ulcer No -Charcot Joint No -Prior Amputation No -Thick No -Discolored No -Deformed No -Improper Length & Hygeine No Right -Popliteal Doppler Multiphasic -Posterior Tibial Palpable No -Posterior Tibial Doppler Multiphasic -Dorsalis Pedis Palpable Yes -Extremity Color Hyperpigmented -Hair Growth on Legs No -Hair Growth on Toes No -Temperature of Extremity Warm -Capillary Refill Less than 3 Seconds -Dependent Rubor No -Blanched when Elevated No -Lipodermatosclerosis No -Other Deformity No -Prior Foot Ulcer No -Charcot Joint No -Prior Amputation No -Thick No -Discolored No -Deformed No -Improper Length & Hygeine No Neuropathy Assessment Feet - Top Side and Bottom <Entered> (a) Communication Assessment Preferred language Maldivian Able to Read Yes Able to Write Yes Communication Tools None Right Hearing Abillity Normal Left Hearing Abillity Normal Visual Assistive Devices Glasses Teaching Assessment Preferences Verbal,Written, Demonstration Readiness To Learn Good Willingness to Engage in Self Management Med Activies Readiness to Engage in Self Management Med Activities Anxiety Level Anxious Cooperation Cooperative Perception Coherent Interest in Health Problem Asks Questions Education Importance Acknowledges Need Does Patient Smoke tobacco or other No substances Smoking Status Former smoker Is Patient Diabetic Yes Functional Assessment Recent Decline in Ability to Perform Ambulation Culture/Anglican/Sas Statistical Programmer Cultural/Anglican Needs that may affect No Treatment Plan Would you allow our hospital ed teacher to No meet you for the purpose of spiritual/ emotional support? Sas Statistical Programmer to contact place of amish No Teaching: Wound Center Diagnostic Tests Ordered -Person Taught Patient,Family Discharge Instructions -Person Taught Patient,Family Dressing Your Wound -Person Taught Patient,Family *Welcome to the Wound Center -Person Taught Patient,Family (a) 1 - + WC - Nurse 1 - General Ulcer Measurement Start: 07/25/22 09:08 Freq: Status: Active Protocol: Activity Type Activity Date Activity User E-sign Co-sign Detail Recorded Client Recorded Date Recorded By Document 07/25/22 09:08 DL [id number] 07/25/22 09:21 DL Edit Result 07/25/22 09:08 DL (1) [id number] 07/25/22 09:37 DL (1) #3 L POST LE - Photo Taken => Yes - Classification - Thickness => Full Thickness => without Exposed => Support Structure - Texture (Leticia-wound Skin Appearance) Assessed => Assessed,Localized => Edema,Scarring #2 R POST LE - Photo Taken => Yes - Texture (Leticia-wound Skin Appearance) Assessed => Assessed,Localized => Edema,Scarring 07/25/22 09:08 Wound Center Nurse 1 #1 LLE Post -Photo Taken Yes #3 L POST LE -Current Size (cm) - Length 4.1 -Current Size (cm) - Width 1.3 -Current Size (cm) - Depth 0.3 -Total Square Cm 5.33 -Photo Taken Yes -Classification - Thickness Full Thickness without Exposed Support Structure -Exudate Amt Large -Exudate Type Yellow/Green -Wound Margin Distinct, Outline Attached -Slough/Fibrin Yes -Necrosis Amt Large (67-100%) -Necrotic Tissue Type Adherent Slough -Texture (Leticia-wound Skin Appearance) Assessed, Localized Edema ,Scarring -Moisture (Leticia-wound Skin Appearance) Assessed -Color (Leticia-wound Skin Appearance) Assessed, Erythema -Temperature (Leticia-wound Skin No Abnormality Appearance) (Pt Warm) -Tenderness on Palpation (Leticia-wound Yes Skin Appearance) -Ulcer Cleansing Soap and Water -Foul Odor after Cleansing No -Anesthetic Used 5% Lidocaine Gel #2 R POST LE -Current Size (cm) - Length 3.5 -Current Size (cm) - Width 5.7 -Current Size (cm) - Depth 0.2 -Total Square Cm 19.95 -Photo Taken Yes -Exudate Amt Large -Exudate Type Yellow/Green -Wound Margin Distinct, Outline Attached -Granulation Amt None Present (0 %) -Slough/Fibrin Yes -Necrosis Amt Large (67-100%) -Necrotic Tissue Type Adherent Slough -Texture (Leticia-wound Skin Appearance) Assessed, Localized Edema ,Scarring -Moisture (Leticia-wound Skin Appearance) Assessed -Color (Leticia-wound Skin Appearance) Assessed, Erythema -Temperature (Leticia-wound Skin No Abnormality Appearance) (Pt Warm) -Tenderness on Palpation (Leticia-wound Yes Skin Appearance) -Ulcer Cleansing Rinsed/ Irrigated with Saline -Foul Odor after Cleansing No -Anesthetic Used 5% Lidocaine Gel Right Calf (cm) 40.5 Right Ankle (cm) 23.5 Left Calf (cm) 41 Left Ankle (cm) 23 WC - Nurse 2 - General Ulcer CM Notes Start: 07/25/22 09:08 Freq: Status: Active Protocol: Activity Type Activity Date Activity User E-sign Co-sign Detail Recorded Client Recorded Date Recorded By Document 07/25/22 10:05 MW [id number] 07/25/22 10:26 MW 07/25/22 10:05 Wound Center Nurse 2 #3 L POST LE -Time 10:08 -Correct Patient Yes -Correct Side, Site, Position Yes -Correct Procedure Yes -Procedure Performed Yes -Type of Procedure Debridement -Clinical Debridement Subcutaneous -Tissue Removed Subcutaneous -Post Debridement (cm) - Length 4.0 -Post Debridement (cm) - Width 1.2 -Post Debridement (cm) - Depth 0.2 -Total Square (Post) (cm) 4.80 -Area of Debridement (cm) - Length 4.0 -Area of Debridement (cm) - Width 1.2 -Total Square (Area) (cm) 4.80 -Tunneling No -Undermining/Tunneling No -Circular Undermining No -Wound/Ulcer Outcome Not Healed -Ulcer Cleansing Rinsed/ Irrigated with Saline -Foul Odor after Cleansing No -Bioengineered Tissue No -Bleeding Controlled with Pressure -Treatment Response Procedure Tolerated Well -Offloading No -Debridement - Subq, 1st 20sq cm Yes #2 R POST LE -Time 10:08 -Correct Patient Yes -Correct Side, Site, Position Yes -Correct Procedure Yes -Procedure Performed Yes -Type of Procedure Debridement -Clinical Debridement Subcutaneous -Tissue Removed Subcutaneous -Post Debridement (cm) - Length 3.6 -Post Debridement (cm) - Width 6.2 -Post Debridement (cm) - Depth 0.2 -Total Square (Post) (cm) 22.32 -Area of Debridement (cm) - Length 3.6 -Area of Debridement (cm) - Width 6.2 -Total Square (Area) (cm) 22.32 -Tunneling No -Undermining/Tunneling No -Circular Undermining No -Wound/Ulcer Outcome Not Healed -Ulcer Cleansing Rinsed/ Irrigated with Saline -Foul Odor after Cleansing No -Bioengineered Tissue No -Bleeding Controlled with Pressure -Treatment Response Procedure Tolerated Well -Offloading No -Debridement - Subq, 1st 20sq cm No Pain Scale: 0-10 Numeric Is Patient Pain Free? Yes - Nurse 3 - General Ulcer D/C NN Start: 07/25/22 09:08 Freq: Status: Active Protocol: Activity Type Activity Date Activity User E-sign Co-sign Detail Recorded Client Recorded Date Recorded By Document 07/25/22 10:36 DL [id number] 07/25/22 10:42 DL 07/25/22 10:36 Wound Care Center Nurse 3 #3 L POST LE -Ulcer Cleansing Rinsed/ Irrigated with Saline -Foul Odor after Cleansing No -Primary Dressing Applied Fibracol Plus 4x4,Mepilex Border -Other Dressing ADAPTIC, -Fibracol Plus 4x4 1 -Mepilex Border 1 #2 R POST LE -Ulcer Cleansing Rinsed/ Irrigated with Saline -Foul Odor after Cleansing No -Primary Dressing Applied Fibracol Plus 4x4,Mepilex Border -Other Dressing ADAPTIC -Fibracol Plus 4x4 0 -Mepilex Border 1 Pain Scale: 0-10 Numeric Is Patient Pain Free? Yes Additional Wound Wound debrided: left posterior LE Laterality: Left Type of Debridement: Excisional debridement Anesthesia Used: 4% Lidocaine Solution, 5% Lidocaine Gel and Cetacaine Depth: Down to and including healthy tissue and in the subcutaneous layer Percentage of wound debrided: 100 Instrument Used: #15 blade and Forceps Tissue Removed: Yellow slough, devitalized tissue Severity: Fat Layer Exposed Amount of bleeding with debridement: Mild Bleeding Controlled with: Compression and gauze Patient tolerated procedure: Patient tolerated procedure well Assessment/Plan Assessment/Plan (1) Venous stasis ulcer of left lower leg with edema of left lower leg: CODE(S): I83.029 - Varicose veins of left lower extremity with ulcer of unspecified site; I83.892 - Varicose veins of left lower extremity with other complications; L97.929 - Non-pressure chronic ulcer of unspecified part of left lower leg with unspecified severity; R60.9 - Edema, unspecified (2) Diabetes mellitus: CODE(S): E11.9 - Type 2 diabetes mellitus without complications QUALIFIERS: Diabetes mellitus type: type 2 Diabetes mellitus skilled nursing insulin use: without long term care phlebotomist use Diabetes mellitus complication status: with neurologic complications Diabetes mellitus complication detail: with polyneuropathy Qualified Code(s): E11.42 - Type 2 diabetes mellitus with diabetic polyneuropathy (3) Chronic obstructive pulmonary disease: CODE(S): J44.9 - Chronic obstructive pulmonary disease, unspecified QUALIFIERS: COPD type: unspecified COPD Qualified Code(s): J44.9 - Chronic obstructive pulmonary disease, unspecified (4) Hypertension: CODE(S): I10 - Essential (primary) hypertension QUALIFIERS: Hypertension type: primary hypertension Qualified Code(s): I10 - Essential (primary) hypertension (5) 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: CODE(S): I83.019 - Varicose veins of right lower extremity with ulcer of unspecified site; L97.919 - Non-pressure chronic ulcer of unspecified part of right lower leg with unspecified severity (6) Nonhealing ulcer of left lower extremity with fat layer exposed: CODE(S): L97.922 - Non-pressure chronic ulcer of unspecified part of left lower leg with fat layer exposed (7) Nonhealing ulcer of right lower extremity with fat layer exposed: CODE(S): L97.912 - Non-pressure chronic ulcer of unspecified part of right lower leg with fat layer exposed (8) Supplemental oxygen dependent: CODE(S): Z99.81 - Dependence on supplemental oxygen PLAN: Plan Debridement performed today in clinic as annotated above. At home wound-care instructions: Will have her apply Santyl and adaptic to the right LE ulcer and Hydrogel and adaptic to his left LE. She will cover with silicone bordered. Keep dressing clean and dry. Off-loading: The patient was instructed to avoid pressure and friction on the affected areas. Reposition every 2 hours at minimum. Avoid prolonged standing and/or dangling of legs. When seated, feet should be elevated at chest level. Frequent ambulation is encouraged. Diet: Patient encouraged to increase protein intake while taking caution to avoid high carbohydrate and/or sugar intake. Labs/cultures/imaging: Culture taken today. Follow-up: Return in 1 week for wound care follow up. Return sooner or report to the emergency room should symptoms worsen, or new symptoms arise. Note: [employer] speech recognition directory carrier software was used to create portions of this document. Sound-alike and misspelled words, as well as other directory carrier errors may be contained in the documentation.
[2022-08-01 09:18] VITALS: BP 118/63; PULSE 66; RESP 20; TEMP 36.1; BMI 34.7
--- NOTE | 2022-08-01 13:15 | PCM.WC.PN ---
History of Present Illness Date of Service: 08/01/22 Chief Complaint: Venous leg ulcer left lower extremity and right lower extremity History of Wound: This is a 76-year-old white female who presents to the wound healing center today with complaint of nonhealing ulceration of her right and left lower extremities. She has a past medical history significant for chronic hypoxia on supplemental O2, COPD, type 2 diabetes mellitus, CHF, and osteoarthritis of the bilateral knees and GERD. The patient states that her wounds initially occurred after scratching the back of her leg on something almost a month ago. She saw her PCP last week and was started on Cephalexin QID x 10 days. She was 2 days left of treatment. She has not had any improvement in her pain or ulcers since starting the antibiotic. She has been applying triple antibiotic ointment covering with gauze for the last few days but had been using hydrogel and nonadherent dressings prior to that. She states that she has not been utilizing any compression due to pain but has been elevating her legs more frequently and using a wedge pillow. She denies any systemic or localized signs of infection at this time. Denies any prior cultures being taken. Objective Data Objective Data Vital Signs: Vital Signs Temp Pulse Resp BP 97 F L 66 20 H 118/63 08/01/22 09:18 08/01/22 09:18 08/01/22 09:18 08/01/22 09:18 Weight: 91.777 kg Body Mass Index (BMI) 34.7 Lab / Micro Data Micro: Microbiology 07/25/22 10:15 Wound Abcess - Leg, Right Gram Stain - Final 07/25/22 10:15 Wound Abcess - Leg, Right Wound Culture - Final Staphylococcus aureus 07/25/22 10:15 Wound Abcess - Leg, Right Anaerobic Culture - Final No anaerobic bacteria isolated. Physical Exam Const alert, oriented x3 and no apparent distress General Appearance: cooperative and comfortable HEENT normocephalic and head/scalp atraumatic Resp normal respiratory effort Effort and Inspection: able to speak in complete sentences Cardio regular rate and regular rhythm Skin Wounds: wounds noted Wound Narrative: as in clinical panel Psych mental status grossly normal, thought process normal, cooperative and affect normal Debridement Note Debridement Note Wound debrided: right posterior LE Laterality: Right Type of Debridement: Excisional debridement Anesthesia Used: 4% Lidocaine Solution, 5% Lidocaine Gel and Cetacaine Depth: Down to and including healthy tissue and in the subcutaneous layer Percentage of wound debrided: 100 Instrument Used: 5mm curette Tissue Removed: Yellow slough, devitalized tissue Severity: Fat Layer Exposed Amount of bleeding with debridement: Mild Bleeding Controlled with: Compression and gauze Patient tolerated procedure: Patient tolerated procedure well Post-Debridement Measurements and Additional Note: Post-Debridement Measurements/Treatment WC - Nurse 1 - General Ulcer Assessment Start: 07/25/22 09:08 Freq: Status: Active Protocol: CHING Activity Type Activity Date Activity User E-sign Co-sign Detail Recorded Client Recorded Date Recorded By Document 07/25/22 09:08 DL [id number] 07/25/22 09:21 DL Edit Result 07/25/22 09:08 DL (1) [id number] 07/25/22 09:37 DL Document 08/01/22 09:18 ML [id number] 08/01/22 09:35 ML (1) Height => 5 ft 4 in Weight => 91.777 kg Weight in Pounds => 202.3 lbs Body Mass Index (BMI) => 34.7 BMI Classification => Obese BSA - Petra => 1.97 Left - Posterior Tibial Palpable => No - Posterior Tibial Doppler => Multiphasic - Dorsalis Pedis Palpable => Yes - Dorsalis Pedis Doppler => Multiphasic - Extremity Color => Hyperpigmented - Hair Growth on Legs => No - Hair Growth on Toes => No - Temperature of Extremity => Warm - Capillary Refill => Greater than 3 => Seconds - Other Deformity => No - Prior Foot Ulcer => No - Charcot Joint => No - Prior Amputation => No - Thick => No - Discolored => No - Deformed => No - Improper Length & Hygeine => No Right - Popliteal Doppler => Multiphasic - Posterior Tibial Palpable => No - Posterior Tibial Doppler => Multiphasic - Dorsalis Pedis Palpable => Yes - Extremity Color => Hyperpigmented - Hair Growth on Legs => No - Hair Growth on Toes => No - Temperature of Extremity => Warm - Capillary Refill => Less than 3 => Seconds - Dependent Rubor => No - Blanched when Elevated => No - Lipodermatosclerosis => No - Other Deformity => No - Prior Foot Ulcer => No - Charcot Joint => No - Prior Amputation => No - Thick => No - Discolored => No - Deformed => No - Improper Length & Hygeine => No Feet - Top Side and Bottom => <Entered> (a) Preferred language => Tristanian Able to Read => Yes Able to Write => Yes Communication Tools => None Right Hearing Abillity => Normal Left Hearing Abillity => Normal Visual Assistive Devices => Glasses Preferences => Verbal,Written, => Demonstration Readiness To Learn => Good Willingness to Engage in Self Management => Med Activies Readiness to Engage in Self Management => Med Activities Anxiety Level => Anxious Cooperation => Cooperative Perception => Coherent Interest in Health Problem => Asks Questions Education Importance => Acknowledges Need Does Patient Smoke tobacco or other => No substances Smoking Status => Former smoker Is Patient Diabetic => Yes Recent Decline in Ability to Perform => Ambulation Cultural/Synagogue Needs that may affect => No Treatment Plan Would you allow our hospital heating and refrigeration inspector to => No meet you for the purpose of spiritual/ emotional support? Emissions Testing Technician to contact place of confucianist => No Diagnostic Tests Ordered - Person Taught => Patient,Family Discharge Instructions - Person Taught => Patient,Family Dressing Your Wound - Person Taught => Patient,Family *Welcome to the Wound Center - Person Taught => Patient,Family 07/25/22 08/01/22 09:08 09:18 WC - Today's Visit Information Type of service Initial Visit Follow-up Visit (Physician/ATHLETICS TEACHER ) Arrival Mode Ambulatory, Ambulatory, Walker Walker Transfer Assistance None None Patient Identification Verified (Name & Yes Yes ) Patient Requires Transmission-Based No No Precautions Safety Precautions NA Finger Stick Blood Sugar(mg/dl) (if doesnt check indicated): Blood Sugar Stated by Patient Height and Weight Height 5 ft 4 in Weight 91.777 kg Weight in Pounds 202.3 lbs Body Mass Index (BMI) 34.7 34.7 BMI Classification Obese Obese BSA - Petra 1.97 Vital Signs Temperature (97.8 F-99.1 F) 96.8 F L 97 F L Temperature Source Temporal Temporal Pulse Rate (60-100) 69 66 Pulse Location Monitor Monitor Respiratory Rate (12-18) 24 H 20 H Respiratory rate source Observation Observation Blood Pressure (90/60-120/80) 146/84 H 118/63 Blood Pressure Mean (mm Hg) 104 81 Source Monitor Monitor Position Sitting Blood Pressure Location Right Arm History Since Last Visit- (Skip if this is Patient's initial visit) Have you changed medications since your No last visit? Any new allergies or adverse reactions No Had a fall/change in ADL's that may No increase risk of falls Signs or symptoms of abuse and/or No neglect since last visit Have you been in the hospital since your No last visit? Has dressing in place as prescribed Yes Has compression in place as prescribed N/A Has offloadiing in place as prescribed N/A Experienced any changes in pain level or No management Left Footwear Regular Shoe Regular Shoe Right Footwear Regular Shoe Regular Shoe Pain Scale: 0-10 Numeric Is Patient Pain Free? Yes Yes Lower Extremity Assessment/ Foot Assessment/ Toe Nail Assessment Left -Posterior Tibial Palpable No -Posterior Tibial Doppler Multiphasic -Dorsalis Pedis Palpable Yes -Dorsalis Pedis Doppler Multiphasic -Extremity Color Hyperpigmented -Hair Growth on Legs No -Hair Growth on Toes No -Temperature of Extremity Warm -Capillary Refill Greater than 3 Seconds -Other Deformity No -Prior Foot Ulcer No -Charcot Joint No -Prior Amputation No -Thick No -Discolored No -Deformed No -Improper Length & Hygeine No Right -Popliteal Doppler Multiphasic -Posterior Tibial Palpable No -Posterior Tibial Doppler Multiphasic -Dorsalis Pedis Palpable Yes -Extremity Color Hyperpigmented -Hair Growth on Legs No -Hair Growth on Toes No -Temperature of Extremity Warm -Capillary Refill Less than 3 Seconds -Dependent Rubor No -Blanched when Elevated No -Lipodermatosclerosis No -Other Deformity No -Prior Foot Ulcer No -Charcot Joint No -Prior Amputation No -Thick No -Discolored No -Deformed No -Improper Length & Hygeine No Neuropathy Assessment Feet - Top Side and Bottom <Entered> (a) Communication Assessment Preferred language Tristanian Able to Read Yes Able to Write Yes Communication Tools None Right Hearing Abillity Normal Left Hearing Abillity Normal Visual Assistive Devices Glasses Teaching Assessment Preferences Verbal,Written, Demonstration Readiness To Learn Good Willingness to Engage in Self Management Med Activies Readiness to Engage in Self Management Med Activities Anxiety Level Anxious Cooperation Cooperative Perception Coherent Interest in Health Problem Asks Questions Education Importance Acknowledges Need Does Patient Smoke tobacco or other No substances Smoking Status Former smoker Is Patient Diabetic Yes Functional Assessment Recent Decline in Ability to Perform Ambulation Culture/Synagogue/Emissions Testing Technician Cultural/Synagogue Needs that may affect No Treatment Plan Would you allow our [facility] heating and refrigeration inspector to No meet you for the purpose of spiritual/ emotional support? Emissions Testing Technician to contact place of confucianist No Teaching: Wound Center Diagnostic Tests Ordered -Person Taught Patient,Family Discharge Instructions -Person Taught Patient,Family Dressing Your Wound -Person Taught Patient,Family *Welcome to the Wound Center -Person Taught Patient,Family (a) 1 - + WC - Nurse 1 - General Ulcer Measurement Start: 07/25/22 09:08 Freq: Status: Active Protocol: Activity Type Activity Date Activity User E-sign Co-sign Detail Recorded Client Recorded Date Recorded By Document 07/25/22 09:08 DL [id number] 07/25/22 09:21 DL Edit Result 07/25/22 09:08 DL (1) [id number] 07/25/22 09:37 DL Document 08/01/22 09:18 ML [id number] 08/01/22 09:35 ML (1) #3 L POST LE - Photo Taken => Yes - Classification - Thickness => Full Thickness => without Exposed => Support Structure - Texture (Leticia-wound Skin Appearance) Assessed => Assessed,Localized => Edema,Scarring #2 R POST LE - Photo Taken => Yes - Texture (Leticia-wound Skin Appearance) Assessed => Assessed,Localized => Edema,Scarring 07/25/22 08/01/22 09:08 09:18 Wound Center Nurse 1 #1 LLE Post -Photo Taken Yes #3 L POST LE -Current Size (cm) - Length 4.1 4 -Current Size (cm) - Width 1.3 1 -Current Size (cm) - Depth 0.3 0.2 -Total Square Cm 5.33 4 -Photo Taken Yes -Classification - Thickness Full Thickness without Exposed Support Structure -Exudate Amt Large Medium -Exudate Type Yellow/Green Serosanguineous -Wound Margin Distinct, Distinct, Outline Outline Attached Attached -Slough/Fibrin Yes Yes -Necrosis Amt Large (67-100%) None Present (0 %) -Necrotic Tissue Type Adherent Slough Adherent Slough -Texture (Leticia-wound Skin Appearance) Assessed, Assessed Localized Edema ,Scarring -Moisture (Leticia-wound Skin Appearance) Assessed Maceration -Color (Leticia-wound Skin Appearance) Assessed, Assessed Erythema -Temperature (Leticia-wound Skin No Abnormality No Abnormality Appearance) (Pt Warm) (Pt Warm) -Tenderness on Palpation (Leticia-wound Yes Yes Skin Appearance) -Ulcer Cleansing Soap and Water Rinsed/ Irrigated with Saline -Foul Odor after Cleansing No No -Anesthetic Used 5% Lidocaine 4% Lidocaine Gel Solution #2 R POST LE -Current Size (cm) - Length 3.5 4 -Current Size (cm) - Width 5.7 6.5 -Current Size (cm) - Depth 0.2 0.2 -Total Square Cm 19.95 26.0 -Photo Taken Yes -Exudate Amt Large Medium -Exudate Type Yellow/Green Serosanguineous -Wound Margin Distinct, Distinct, Outline Outline Attached Attached -Granulation Amt None Present (0 %) -Slough/Fibrin Yes Yes -Necrosis Amt Large (67-100%) Medium (34-66%) -Necrotic Tissue Type Adherent Slough Adherent Slough -Texture (Leticia-wound Skin Appearance) Assessed, Assessed Localized Edema ,Scarring -Moisture (Leticia-wound Skin Appearance) Assessed Assessed -Color (Leticia-wound Skin Appearance) Assessed, Assessed Erythema -Temperature (Leticia-wound Skin No Abnormality No Abnormality Appearance) (Pt Warm) (Pt Warm) -Tenderness on Palpation (Leticia-wound Yes Yes Skin Appearance) -Ulcer Cleansing Rinsed/ Rinsed/ Irrigated with Irrigated with Saline Saline -Foul Odor after Cleansing No No -Anesthetic Used 5% Lidocaine 4% Lidocaine Gel Solution Right Calf (cm) 40.5 38 Right Ankle (cm) 23.5 27.5 Left Calf (cm) 41 34 Left Ankle (cm) 23 23.5 WC - Nurse 2 - General Ulcer CM Notes Start: 07/25/22 09:08 Freq: Status: Active Protocol: Activity Type Activity Date Activity User E-sign Co-sign Detail Recorded Client Recorded Date Recorded By Document 07/25/22 10:05 MW [id number] 07/25/22 10:26 MW Edit Result 07/25/22 10:05 MW (1) [id number] 07/28/22 06:54 PL Document 08/01/22 09:51 MW [id number] 08/01/22 10:12 MW (1) #3 L POST LE - Debridement, SubQ, ea addt'l 20sq cm => 1 or part thereof 07/25/22 08/01/22 10:05 09:51 Wound Center Nurse 2 #3 L POST LE -Time 10:08 09:51 -Correct Patient Yes Yes -Correct Side, Site, Position Yes Yes -Correct Procedure Yes Yes -Procedure Performed Yes Yes -Type of Procedure Debridement Debridement -Clinical Debridement Subcutaneous Subcutaneous -Tissue Removed Subcutaneous Subcutaneous -Post Debridement (cm) - Length 4.0 3.4 -Post Debridement (cm) - Width 1.2 1.1 -Post Debridement (cm) - Depth 0.2 0.2 -Total Square (Post) (cm) 4.80 3.74 -Area of Debridement (cm) - Length 4.0 3.4 -Area of Debridement (cm) - Width 1.2 1.1 -Total Square (Area) (cm) 4.80 3.74 -Tunneling No No -Undermining/Tunneling No No -Circular Undermining No No -Wound/Ulcer Outcome Not Healed Not Healed -Ulcer Cleansing Rinsed/ Rinsed/ Irrigated with Irrigated with Saline Saline -Foul Odor after Cleansing No No -Bioengineered Tissue No No -Bleeding Controlled with Pressure Pressure -Treatment Response Procedure Procedure Tolerated Well Tolerated Well -Offloading No No -Debridement - Subq, 1st 20sq cm Yes Yes -Debridement, SubQ, ea addt'l 20sq cm 1 or part thereof #2 R POST LE -Time 10:08 10:00 -Correct Patient Yes Yes -Correct Side, Site, Position Yes Yes -Correct Procedure Yes Yes -Procedure Performed Yes Yes -Type of Procedure Debridement Debridement -Clinical Debridement Subcutaneous Subcutaneous -Tissue Removed Subcutaneous Subcutaneous -Post Debridement (cm) - Length 3.6 3.0 -Post Debridement (cm) - Width 6.2 5.8 -Post Debridement (cm) - Depth 0.2 0.2 -Total Square (Post) (cm) 22.32 17.40 -Area of Debridement (cm) - Length 3.6 3.0 -Area of Debridement (cm) - Width 6.2 5.8 -Total Square (Area) (cm) 22.32 17.40 -Tunneling No No -Undermining/Tunneling No No -Circular Undermining No No -Wound/Ulcer Outcome Not Healed Not Healed -Ulcer Cleansing Rinsed/ Rinsed/ Irrigated with Irrigated with Saline Saline -Foul Odor after Cleansing No No -Bioengineered Tissue No No -Bleeding Controlled with Pressure Pressure -Treatment Response Procedure Procedure Tolerated Well Tolerated Well -Offloading No No -Debridement - Subq, 1st 20sq cm No No Pain Scale: 0-10 Numeric Is Patient Pain Free? Yes Yes - Nurse 3 - General Ulcer D/C NN Start: 07/25/22 09:08 Freq: Status: Active Protocol: Activity Type Activity Date Activity User E-sign Co-sign Detail Recorded Client Recorded Date Recorded By Document 07/25/22 10:36 DL [id number] 07/25/22 10:42 DL Document 08/01/22 10:19 RB [id number] 08/01/22 10:21 RB 07/25/22 08/01/22 10:36 10:19 Wound Care Center Nurse 3 #3 L POST LE -Ulcer Cleansing Rinsed/ Wound Cleanser Irrigated with Saline -Foul Odor after Cleansing No -Primary Dressing Applied Fibracol Plus NonAdherent 4x4,Mepilex Contact Layer, Border Mepilex Border -Other Dressing ADAPTIC, hydrogel -Fibracol Plus 4x4 1 -Mepilex Border 1 1 #2 R POST LE -Ulcer Cleansing Rinsed/ Rinsed/ Irrigated with Irrigated with Saline Saline -Foul Odor after Cleansing No -Primary Dressing Applied Fibracol Plus NonAdherent 4x4,Mepilex Contact Layer, Border Mepilex Border -Other Dressing ADAPTIC hydrogel -Fibracol Plus 4x4 0 -Mepilex Border 1 1 Right -Tubular Bandage Single Layer -Size of Tubigrip Used Size D -Size D ($) 1 Left -Tubular Bandage Single Layer -Size of Tubigrip Used Size D -Size D ($) 1 Treatment Response Procedure Tolerated Well Pain Scale: 0-10 Numeric Is Patient Pain Free? Yes Yes WC - Visit Discharge Discharge Condition Stable Ambulatory Status Ambulatory, Walker Transportation Private Auto Medication Reconcilliation completed & No provided to patient/care provider Clinical Summary of Care Provided Yes Additional Wound Wound debrided: left posterior LE Laterality: Left Type of Debridement: Excisional debridement Anesthesia Used: 4% Lidocaine Solution, 5% Lidocaine Gel and Cetacaine Depth: Down to and including healthy tissue and in the subcutaneous layer Percentage of wound debrided: 100 Tissue Removed: Yellow slough, devitalized tissue Severity: Fat Layer Exposed Amount of bleeding with debridement: Mild Bleeding Controlled with: Compression and gauze Patient tolerated procedure: Patient tolerated procedure well Assessment/Plan Assessment/Plan (1) Venous stasis ulcer of left lower leg with edema of left lower leg: CODE(S): I83.029 - Varicose veins of left lower extremity with ulcer of unspecified site; I83.892 - Varicose veins of left lower extremity with other complications; L97.929 - Non-pressure chronic ulcer of unspecified part of left lower leg with unspecified severity; R60.9 - Edema, unspecified (2) Diabetes mellitus: CODE(S): E11.9 - Type 2 diabetes mellitus without complications QUALIFIERS: Diabetes mellitus type: type 2 Diabetes mellitus computer terminal operator insulin use: without computer terminal operator use Diabetes mellitus complication status: with neurologic complications Diabetes mellitus complication detail: with polyneuropathy Qualified Code(s): E11.42 - Type 2 diabetes mellitus with diabetic polyneuropathy (3) Chronic obstructive pulmonary disease: CODE(S): J44.9 - Chronic obstructive pulmonary disease, unspecified QUALIFIERS: COPD type: unspecified COPD Qualified Code(s): J44.9 - Chronic obstructive pulmonary disease, unspecified (4) Hypertension: CODE(S): I10 - Essential (primary) hypertension QUALIFIERS: Hypertension type: primary hypertension Qualified Code(s): I10 - Essential (primary) hypertension (5) 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: CODE(S): I83.019 - Varicose veins of right lower extremity with ulcer of unspecified site; L97.919 - Non-pressure chronic ulcer of unspecified part of right lower leg with unspecified severity (6) Nonhealing ulcer of left lower extremity with fat layer exposed: CODE(S): L97.922 - Non-pressure chronic ulcer of unspecified part of left lower leg with fat layer exposed (7) Nonhealing ulcer of right lower extremity with fat layer exposed: CODE(S): L97.912 - Non-pressure chronic ulcer of unspecified part of right lower leg with fat layer exposed (8) Supplemental oxygen dependent: CODE(S): Z99.81 - Dependence on supplemental oxygen PLAN: Plan Debridement performed today in clinic as annotated above. At home wound-care instructions: Will have her apply Santyl and adaptic to both wounds daily. She will cover with silicone bordered foam dressing. Keep dressing clean and dry. Off-loading: The patient was instructed to avoid pressure and friction on the affected areas. Reposition every 2 hours at minimum. Avoid prolonged standing and/or dangling of legs. When seated, feet should be elevated at chest level. Frequent ambulation is encouraged. Diet: Patient encouraged to increase protein intake while taking caution to avoid high carbohydrate and/or sugar intake. Labs/cultures/imaging: Culture positive for Staph aureus - started on doxycycline today. Vascular testing ordered to evaluate for arterial and venous disease as she had prolonged healing previously and spontaneous appearance of these ulcers. Follow-up: Return in 1 week for wound care follow up. Return sooner or report to the emergency room should symptoms worsen, or new symptoms arise. Note: [employer] speech recognition dry mill worker software was used to create portions of this document. Sound-alike and misspelled words, as well as other dry mill worker errors may be contained in the documentation.
== END 2022-08-05 23:59 | disposition home or self-care (01) ==
LOC: WC 09:30
PROVIDERS: PCP Family Medicine; Visit Provider Family Medicine
DX: I83.028 Varicose veins of left lower extremity with ulcer other part of lower leg (principal); L97.822 Non-pressure chronic ulcer of other part of left lower leg with fat layer exposed; L97.812 Non-pressure chronic ulcer of other part of right lower leg with fat layer exposed; I83.018 Varicose veins of right lower extremity with ulcer other part of lower leg; J44.9 Chronic obstructive pulmonary disease, unspecified; I11.0 Hypertensive heart disease with heart failure; I50.9 Heart failure, unspecified; E11.42 Type 2 diabetes mellitus with diabetic polyneuropathy; M17.0 Bilateral primary osteoarthritis of knee; M79.7 Fibromyalgia; K21.9 Gastro-esophageal reflux disease without esophagitis; Z99.81 Dependence on supplemental oxygen; Z79.82 Long term (current) use of aspirin; Z79.1 Long term (current) use of non-steroidal anti-inflammatories (NSAID); Z79.899 Other long term (current) drug therapy; Z87.891 Personal history of nicotine dependence
CPT/HCPCS: 11042; 11045; 87070; 87075; 87077; 87186; 87205; 99213; G0463

== ENCOUNTER 2022-09-05 09:00 | Outpatient (RCR) | payer MEDICARE, SELFPAY ==
[2022-08-06 00:35] VITALS: BP 118/63; PULSE 66; RESP 20; TEMP 36.1; BMI 34.7
--- NOTE | 2022-08-07 08:03 | VDLE_ITS ---
Reason For Study: RLE and LLE ulcer RIGHT LEFT CFV is compressible, spontaneous, phasic, CFV is compressible, spontaneous, phasic, competent and demonstrates normal competent, and demonstrates normal augmentation. augmentation. FV is compressible, spontaneous, phasic, FV is compressible, spontaneous, phasic, competent and demonstrates normal competent and demonstrates normal augmentation. augmentation. POP V is compressible, spontaneous, phasic, POP V is compressible, spontaneous, phasic, competent and demonstrates normal competent and demonstrates normal augmentation. augmentation. T/P Trunk is compressible. T/P Trunk is compressible. PTV is compressible. PTV is compressible. RT PerV is compressible. LT PerV is compressible. SFJ is competent and measures .75 cm. SFJ is competent and measures .72 cm. GSV proximal thigh measures .25 x .27 cm. GSV proximal thigh measures .36 x .37 cm. GSV at knee measures .21 x .23 cm. GSV at knee measures .15 x .15 cm. GSV is competent throughout. SSV proximal calf is competent and SSV proximal calf is competent and measures .09 x .13 cm. measures .19 x .2 cm. ASV proximal thigh is INCOMPETENT for greater ASV proximal thigh is INCOMPETENT for greater than 0.5 seconds and measures .26 cm. than 0.5 seconds and measures .41 cm. Heterogeneous area behind the knee measuring Heterogeneous area behind the knee measuring 2.34 x 3.71 cm. Area is nonvascular. 1.51 x3.93 cm. Area is nonvascular. Procedure This is a venous duplex using B-mode, color flow and spectral Doppler. Exam performed in department. The exam was diagnostic. VL/Venous Duplex US - Flip Extrem Interpretation Summary Deep veins of the lower extremities are bilaterally patent and compressible seg mentally. There is no evidence of deep vein thrombosis on either side. Valvular competence appears in tact within the proximal deep venous systems bilaterally. The great saphenous veins appear bila terally patent and compressible segmentally. Sapheno-femoral junctions are bilaterally competent . Valvular competence appears to be intact segmentally within the great saphenous veins bilaterally. Small saphenous veins are patent and competent bilaterally. An accessory saphenous vein in the right proximal thigh is incompetent. An accessory saphenous vein in the left proximal thigh is incompet ent. A non-vascular structure is noted in the popliteal spaces bilaterally, with dimensions as docu mented above. These probably represent popliteal cysts. Clinical correlation is advised. Ordering Physician: Nisha Magallon Performed By: Tez Alfred RVT
--- NOTE | 2022-08-07 08:04 | ART_ITS ---
Reason For Study: PAD Procedure A bilateral lower extremity continuous wave Doppler with analog waveform analysis,segmental pressures,and ankle brachial indexes without exercise. Left Segmental Pressures Left brachial= 154mmHg. Left posterior tibial artery = 160mmHg. Left dorsalis pedis artery = 151mmHg. The left dorsalis pedis waveforms are triphasic. The left posterior tibial artery waveforms are triphasic. Right Segmental Pressures Right brachial= 160mmHg. Right posterior tibial artery = 156mmHg. Right dorsalis pedis artery = 171mmHg. Right digit = 104 mmHg. The right dorsalis pedis waveforms are triphasic. The right posterior tibial artery waveforms are triphasic. Indices The right ankle brachial index by the posterior tibial artery is .98. The right ankle brachial index by the dorsalis pedis is 1.07. The right digital-brachial index is .65. The left ankle brachial index by the posterior tibial artery is 1.0. The left ankle brachial index by the dorsalis pedis is .94. The left digital-brachial index is .75. VL/Lower Ext Art Exam w/o Exercis Interpretation Summary Triphasic Doppler waveforms are noted at ankle level bilaterally. Pulse-volume recordings appear diminished at digital level bilaterally, but satisfactory at all other levels b ilaterally. Resting ankle-brachial indices are normal bilaterally. The right digital-brachial index is mildly diminished. The left digital-brachial index is normal. Arterial flow appears normal at ankle level bilaterally, and at digital level o n the left. There is evidence of mild arterial occlusive disease at digital level on the right. Ordering Physician: Nisha Magallon Performed By: Tez Alfred RVT
[2022-08-08 08:59] VITALS: BP 155/84; PULSE 67; RESP 22; TEMP 36.7; BMI 34.7
--- NOTE | 2022-08-08 12:35 | PN.PCM_ITS ---
History of Present Illness Date of Service: 08/08/22 Chief Complaint: Venous leg ulcer left lower extremity and right lower extremity History of Wound: This is a 76-year-old white female who presents to the wound healing center today with complaint of nonhealing ulceration of her right and left lower extremities. She has a past medical history significant for chronic hypoxia on supplemental O2, COPD, type 2 diabetes mellitus, CHF, and osteoarthritis of the bilateral knees and GERD. The patient states that her wounds initially occurred after scratching the back of her leg on something almost a month ago. She saw her PCP last week and was started on Cephalexin QID x 10 days. She was 2 days left of treatment. She has not had any improvement in her pain or ulcers since starting the antibiotic. She has been applying triple antibiotic ointment covering with gauze for the last few days but had been using hydrogel and nonadherent dressings prior to that. She states that she has not been utilizing any compression due to pain but has been elevating her legs more frequently and using a wedge pillow. She denies any systemic or localized signs of infection at this time. Denies any prior cultures being taken. Progress of Wound: She is tolerating treatment with Santyl to both ulcers with adaptic. She underwent vascular testing and has incompetence of accessory saphenous veins at thigh level bilaterally. Objective Data Objective Data Vital Signs: Vital Signs Temp Pulse Resp BP 98.1 F 67 22 H 155/84 H 08/08/22 08:59 08/08/22 08:59 08/08/22 08:59 08/08/22 08:59 Weight: 91.777 kg Body Mass Index (BMI) 34.7 Radiography Diagnostic Testing: Radiology Impression Venous Doppler Study 08/07/22 08:03 Interpretation Summary Deep veins of the lower extremities are bilaterally patent and compressible segmentally. There is no evidence of deep vein thrombosis on either side. Valvular competence appears intact within the proximal deep venous systems bilaterally. The great saphenous veins appear bilaterally patent and compressible segmentally. Sapheno-femoral junctions are bilaterally competent . Valvular competence appears to be intact segmentally within the great saphenous veins bilaterally. Small saphenous veins are patent and competent bilaterally. An accessory saphenous vein in the right proximal thigh is incompetent. An accessory saphenous vein in the left proximal thigh is incompetent. A non-vascular structure is noted in the popliteal spaces bilaterally, with dimensions as documented above. These probably represent popliteal cysts. Clinical correlation is advised. Ordering Physician: Nisha Magallon Performed By: Tez Alfred RVT Extremity Arterial Study 08/07/22 08:04 Interpretation Summary Triphasic Doppler waveforms are noted at ankle level bilaterally. Pulse-volume recordings appear diminished at digital level bilaterally, but satisfactory at all other levels bilaterally. Resting ankle-brachial indices are normal bilaterally. The right digital-brachial index is mildly diminished. The left digital-brachial index is normal. Arterial flow appears normal at ankle level bilaterally, and at digital level on the left. There is evidence of mild arterial occlusive disease at digital level on the right. Ordering Physician: Nisha Magallon Performed By: Tez Alfred RVT Physical Exam Const alert, oriented x3 and no apparent distress General Appearance: cooperative and comfortable HEENT normocephalic and head/scalp atraumatic Resp normal respiratory effort Effort and Inspection: able to speak in complete sentences Cardio regular rate and regular rhythm Skin Wounds: wounds noted Wound Narrative: as in clinical panel Psych mental status grossly normal, thought process normal, cooperative and affect normal Debridement Note Debridement Note Wound debrided: right posterior LE Laterality: Right Type of Debridement: Excisional debridement Anesthesia Used: 4% Lidocaine Solution, 5% Lidocaine Gel and Cetacaine Depth: Down to and including healthy tissue and in the subcutaneous layer Percentage of wound debrided: 100 Instrument Used: 5mm curette Tissue Removed: Yellow slough, devitalized tissue Severity: Fat Layer Exposed Amount of bleeding with debridement: Mild Bleeding Controlled with: Compression and gauze Patient tolerated procedure: Patient tolerated procedure well Post-Debridement Measurements and Additional Note: Post-Debridement Measurements/Treatment WC - Nurse 1 - General Ulcer Assessment Start: 08/08/22 08:59 Freq: Status: Active Protocol: CHING Activity Type Activity Date Activity User E-sign Co-sign Detail Recorded Client Recorded Date Recorded By Document 08/08/22 08:59 DL [id number] 08/08/22 09:08 DL 08/08/22 08:59 WC - Today's Visit Information Type of service Follow-up Visit (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/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 ) Arrival Mode Ambulatory, Walker Transfer Assistance None Patient Identification Verified (Name & Yes ) Patient Requires Transmission-Based No Precautions Finger Stick Blood Sugar(mg/dl) (if didnt check indicated): Blood Sugar Stated by Patient Height and Weight Body Mass Index (BMI) 34.7 BMI Classification Obese Vital Signs Temperature (97.8 F-99.1 F) 98.1 F Temperature Source Temporal Pulse Rate (60-100) 67 Pulse Location Monitor Respiratory Rate (12-18) 22 H Respiratory rate source Observation Blood Pressure (90/60-120/80) 155/84 H Blood Pressure Mean (mm Hg) 107 Source Monitor History Since Last Visit- (Skip if this is Patient's initial visit) Any new allergies or adverse reactions No Had a fall/change in ADL's that may No increase risk of falls Signs or symptoms of abuse and/or No neglect since last visit Have you been in the hospital since your No last visit? Has dressing in place as prescribed No Has compression in place as prescribed Yes Has offloadiing in place as prescribed N/A Experienced any changes in pain level or No management Pain Scale: 0-10 Numeric Is Patient Pain Free? Yes - Nurse 1 - General Ulcer Measurement Start: 08/08/22 08:59 Freq: Status: Active Protocol: Activity Type Activity Date Activity User E-sign Co-sign Detail Recorded Client Recorded Date Recorded By Document 08/08/22 08:59 DL [id number] 08/08/22 09:08 DL 08/08/22 08:59 Wound Center Nurse 1 #3 L POST LE -Current Size (cm) - Length 3.7 -Current Size (cm) - Width 1 -Current Size (cm) - Depth 0.2 -Total Square Cm 3.7 -Photo Taken Yes -Exudate Amt Medium -Exudate Type Serosanguineous -Wound Margin Distinct, Outline Attached -Granulation Amt None Present (0 %) -Necrosis Amt Large (67-100%) -Necrotic Tissue Type Adherent Slough -Structure Exposed N/A -Texture (Leticia-wound Skin Appearance) Scarring -Moisture (Leticia-wound Skin Appearance) No Abnormality -Color (Leticia-wound Skin Appearance) Erythema, Hemosiderin Staining -Temperature (Leticia-wound Skin No Abnormality Appearance) (Pt Warm) -Tenderness on Palpation (Leticia-wound No Skin Appearance) -Ulcer Cleansing Soap and Water -Foul Odor after Cleansing No -Anesthetic Used 5% Lidocaine Gel #2 R POST LE -Current Size (cm) - Length 3.1 -Current Size (cm) - Width 5.4 -Current Size (cm) - Depth 1 -Total Square Cm 16.74 -Photo Taken Yes -Exudate Amt Medium -Exudate Type Serous -Wound Margin Distinct, Outline Attached -Granulation Amt None Present (0 %) -Necrosis Amt Large (67-100%) -Necrotic Tissue Type Adherent Slough -Structure Exposed N/A -Texture (Leticia-wound Skin Appearance) Scarring -Moisture (Leticia-wound Skin Appearance) No Abnormality -Color (Leticia-wound Skin Appearance) Erythema, Hemosiderin Staining -Temperature (Leticia-wound Skin No Abnormality Appearance) (Pt Warm) -Tenderness on Palpation (Leticia-wound No Skin Appearance) -Ulcer Cleansing Soap and Water -Foul Odor after Cleansing No -Anesthetic Used 5% Lidocaine Gel Right Calf (cm) 39.4 Right Ankle (cm) 23.7 Left Calf (cm) 43.6 Left Ankle (cm) 22.5 WC - Nurse 2 - General Ulcer CM Notes Start: 08/08/22 08:59 Freq: Status: Active Protocol: Activity Type Activity Date Activity User E-sign Co-sign Detail Recorded Client Recorded Date Recorded By Document 08/08/22 09:38 MW [id number] 08/08/22 10:13 MW 08/08/22 09:38 Wound Center Nurse 2 #3 L POST LE -Time 09:39 -Correct Patient Yes -Correct Side, Site, Position Yes -Correct Procedure Yes -Procedure Performed Yes -Type of Procedure Debridement -Clinical Debridement Subcutaneous -Tissue Removed Subcutaneous -Post Debridement (cm) - Length 3.2 -Post Debridement (cm) - Width 0.8 -Post Debridement (cm) - Depth 0.2 -Total Square (Post) (cm) 2.56 -Area of Debridement (cm) - Length 3.2 -Area of Debridement (cm) - Width 0.8 -Total Square (Area) (cm) 2.56 -Tunneling No -Undermining/Tunneling No -Circular Undermining No -Wound/Ulcer Outcome Not Healed -Ulcer Cleansing Rinsed/ Irrigated with Saline -Foul Odor after Cleansing No -Bioengineered Tissue No -Bleeding Controlled with Pressure -Treatment Response Procedure Tolerated Well -Offloading No -Debridement - Subq, 1st 20sq cm Yes #2 R POST LE -Time 09:39 -Correct Patient Yes -Correct Side, Site, Position Yes -Correct Procedure Yes -Procedure Performed Yes -Type of Procedure Debridement -Clinical Debridement Subcutaneous -Tissue Removed Subcutaneous -Post Debridement (cm) - Length 3.0 -Post Debridement (cm) - Width 5.5 -Post Debridement (cm) - Depth 0.2 -Total Square (Post) (cm) 16.50 -Area of Debridement (cm) - Length 3.0 -Area of Debridement (cm) - Width 5.5 -Total Square (Area) (cm) 16.50 -Tunneling No -Undermining/Tunneling No -Circular Undermining No -Wound/Ulcer Outcome Not Healed -Ulcer Cleansing Rinsed/ Irrigated with Saline -Foul Odor after Cleansing No -Bioengineered Tissue No -Bleeding Controlled with Pressure -Treatment Response Procedure Tolerated Well -Offloading No -Debridement - Subq, 1st 20sq cm No Pain Scale: 0-10 Numeric Is Patient Pain Free? Yes WC - Nurse 3 - General Ulcer D/C NN Start: 08/08/22 08:59 Freq: Status: Active Protocol: Activity Type Activity Date Activity User E-sign Co-sign Detail Recorded Client Recorded Date Recorded By Document 08/08/22 10:26 DL [id number] 08/08/22 10:34 DL 08/08/22 10:26 Wound Care Center Nurse 3 #3 L POST LE -Ulcer Cleansing Rinsed/ Irrigated with Saline -Foul Odor after Cleansing No -Primary Dressing Applied NonAdherent Contact Layer, Mepilex Border -Other Dressing hydrogel -Mepilex Border 1 #2 R POST LE -Ulcer Cleansing Rinsed/ Irrigated with Saline -Foul Odor after Cleansing No -Primary Dressing Applied Mepilex Border -Other Dressing hydrogel -Mepilex Border 1 Treatment Response Procedure Tolerated Well Pain Scale: 0-10 Numeric Is Patient Pain Free? Yes WC - Visit Discharge Discharge Condition Stable Ambulatory Status Ambulatory, Walker Transportation Private Auto Additional Wound Wound debrided: left posterior LE Laterality: Left Type of Debridement: Excisional debridement Anesthesia Used: 4% Lidocaine Solution, 5% Lidocaine Gel and Cetacaine Depth: Down to and including healthy tissue and in the subcutaneous layer Percentage of wound debrided: 100 Tissue Removed: Yellow slough, devitalized tissue Severity: Fat Layer Exposed Amount of bleeding with debridement: Mild Bleeding Controlled with: Compression and gauze Patient tolerated procedure: Patient tolerated procedure well Assessment/Plan Assessment/Plan (1) Venous stasis ulcer of left lower leg with edema of left lower leg: CODE(S): I83.029 - Varicose veins of left lower extremity with ulcer of unspecified site; I83.892 - Varicose veins of left lower extremity with other complications; L97.929 - Non-pressure chronic ulcer of unspecified part of left lower leg with unspecified severity; R60.9 - Edema, unspecified (2) Diabetes mellitus: CODE(S): E11.9 - Type 2 diabetes mellitus without complications QUALIFIERS: Diabetes mellitus type: type 2 Diabetes mellitus dedicated intermodal truck driver insulin use: without dedicated intermodal truck driver use Diabetes mellitus complication status: with neurologic complications Diabetes mellitus complication detail: with polyneuropathy Qualified Code(s): E11.42 - Type 2 diabetes mellitus with diabetic polyneuropathy (3) Chronic obstructive pulmonary disease: CODE(S): J44.9 - Chronic obstructive pulmonary disease, unspecified QUALIFIERS: COPD type: unspecified COPD Qualified Code(s): J44.9 - Chronic obstructive pulmonary disease, unspecified (4) Hypertension: CODE(S): I10 - Essential (primary) hypertension QUALIFIERS: Hypertension type: primary hypertension Qualified Code(s): I10 - Essential (primary) hypertension (5) 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: CODE(S): I83.019 - Varicose veins of right lower extremity with ulcer of unspecified site; L97.919 - Non-pressure chronic ulcer of unspecified part of right lower leg with unspecified severity (6) Nonhealing ulcer of left lower extremity with fat layer exposed: CODE(S): L97.922 - Non-pressure chronic ulcer of unspecified part of left lower leg with fat layer exposed (7) Nonhealing ulcer of right lower extremity with fat layer exposed: CODE(S): L97.912 - Non-pressure chronic ulcer of unspecified part of right lower leg with fat layer exposed (8) Supplemental oxygen dependent: CODE(S): Z99.81 - Dependence on supplemental oxygen PLAN: Plan Debridement performed today in clinic as annotated above. At home wound-care instructions: Will have her apply Santyl and adaptic to both wounds daily. She will cover with silicone bordered foam dressing. Keep dressing clean and dry. Off-loading: The patient was instructed to avoid pressure and friction on the affected areas. Reposition every 2 hours at minimum. Avoid prolonged standing and/or dangling of legs. When seated, feet should be elevated at chest level. Frequent ambulation is encouraged. Diet: Patient encouraged to increase protein intake while taking caution to avoid high carbohydrate and/or sugar intake. Labs/cultures/imaging: Culture positive for Staph aureus completes doxycycline on Thursday. Vascular testing ordered to evaluate for arterial and venous disease as she had prolonged healing previously and spontaneous appearance of these ulcers. Follow-up: Return in 1 week for wound care follow up. Return sooner or report to the emergency room should symptoms worsen, or new symptoms arise. Note: [employer] speech recognition glue mounter operator software was used to create portions of this document. Sound-alike and misspelled words, as well as other glue mounter operator errors may be contained in the documentation.
[2022-08-15 08:39] VITALS: BP 168/79; PULSE 60; RESP 18; TEMP 36; BMI 34.7
--- NOTE | 2022-08-15 09:30 | WC ---
Pt educated on circaid and they were applied this visit.
--- NOTE | 2022-08-15 11:57 | PN.PCM_ITS ---
History of Present Illness Date of Service: 08/15/22 Chief Complaint: Venous leg ulcer left lower extremity and right lower extremity History of Wound: This is a 76-year-old white female who presents to the wound healing center today with complaint of nonhealing ulceration of her right and left lower extremities. She has a past medical history significant for chronic hypoxia on supplemental O2, COPD, type 2 diabetes mellitus, CHF, and osteoarthritis of the bilateral knees and GERD. The patient states that her wounds initially occurred after scratching the back of her leg on something almost a month ago. She saw her PCP last week and was started on Cephalexin QID x 10 days. She was 2 days left of treatment. She has not had any improvement in her pain or ulcers since starting the antibiotic. She has been applying triple antibiotic ointment covering with gauze for the last few days but had been using hydrogel and nonadherent dressings prior to that. She states that she has not been utilizing any compression due to pain but has been elevating her legs more frequently and using a wedge pillow. She denies any systemic or localized signs of infection at this time. Denies any prior cultures being taken. 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 Progress of Wound: She tolerated treatment with Santyl to both ulcers with adaptic. 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 Objective Data Objective Data Vital Signs: Vital Signs Temp Pulse Resp BP O2 Del Method O2 Flow Rate 96.8 F L 60 18 168/79 H Nasal Cannula 2 08/15/22 08:39 08/15/22 08:39 08/15/22 08:39 08/15/22 08:39 08/15/22 08:39 08/15/22 08:39 Oxygen Flow Rate (L/min) 2 Oxygen Delivery Method Nasal Cannula Weight: 91.777 kg Body Mass Index (BMI) 34.7 Physical Exam Const alert, oriented x3 and no apparent distress General Appearance: cooperative and comfortable HEENT normocephalic and head/scalp atraumatic Resp normal respiratory effort Effort and Inspection: able to speak in complete sentences Cardio regular rate and regular rhythm Skin Wounds: wounds noted Wound Narrative: as in clinical panel Psych mental status grossly normal, thought process normal, cooperative and affect normal Debridement Note Debridement Note Wound debrided: right posterior LE Laterality: Right Type of Debridement: Excisional debridement Anesthesia Used: 4% Lidocaine Solution, 5% Lidocaine Gel and Cetacaine Depth: Down to and including healthy tissue and in the subcutaneous layer Percentage of wound debrided: 100 Instrument Used: 5mm curette Tissue Removed: Yellow slough, devitalized tissue Severity: Fat Layer Exposed Amount of bleeding with debridement: Mild Bleeding Controlled with: Compression and gauze Patient tolerated procedure: Patient tolerated procedure well Post-Debridement Measurements and Additional Note: Post-Debridement Measurements/Treatment - Nurse 1 - General Ulcer Assessment Start: 08/08/22 08:59 Freq: Status: Active Protocol: [email or web address] Activity Type Activity Date Activity User E-sign Co-sign Detail Recorded Client Recorded Date Recorded By Document 08/08/22 08:59 DL [id number] 08/08/22 09:08 DL Document 08/15/22 08:39 [facility] [id number] 08/15/22 08:45 BM 08/08/22 08/15/22 08:59 08:39 - Today's Visit Information Type of service Follow-up Visit Follow-up Visit (Physician/REGIONAL ECONOMIST (Physician/REGIONAL ECONOMIST ) ) Arrival Mode Ambulatory, Ambulatory, Walker Walker Transfer Assistance None None Accompanied by daughter Patient Identification Verified (Name & Yes Yes ) Patient Requires Transmission-Based No No Precautions Finger Stick Blood Sugar(mg/dl) (if didnt check indicated): Blood Sugar Stated by Patient Height and Weight Body Mass Index (BMI) 34.7 34.7 BMI Classification Obese Obese Vital Signs Temperature (97.8 F-99.1 F) 98.1 F 96.8 F L Temperature Source Temporal Temporal Pulse Rate (60-100) 67 60 Pulse Location Monitor Monitor Respiratory Rate (12-18) 22 H 18 Respiratory rate source Observation Observation Oxygen Delivery Method Nasal Cannula O2 L/MIN (L/min) 2 Blood Pressure (90/60-120/80) 155/84 H 168/79 H Blood Pressure Mean (mm Hg) 107 108 Source Monitor Monitor Position Sitting Blood Pressure Location Left Arm History Since Last Visit- (Skip if this is Patient's initial visit) Have you changed medications since your No last visit? Any new allergies or adverse reactions No No Had a fall/change in ADL's that may No No increase risk of falls Signs or symptoms of abuse and/or No No neglect since last visit Have you been in the hospital since your No No last visit? Has dressing in place as prescribed No Yes Has compression in place as prescribed Yes N/A Has offloadiing in place as prescribed N/A N/A Experienced any changes in pain level or No No management Left Footwear Regular Shoe Right Footwear Regular Shoe Pain Scale: 0-10 Numeric Is Patient Pain Free? Yes Yes WC - Nurse 1 - General Ulcer Measurement Start: 08/08/22 08:59 Freq: Status: Active Protocol: Activity Type Activity Date Activity User E-sign Co-sign Detail Recorded Client Recorded Date Recorded By Document 08/08/22 08:59 DL [id number] 08/08/22 09:08 DL Document 08/15/22 08:39 BM [id number] 08/15/22 08:45 BMF 08/08/22 08/15/22 08:59 08:39 Wound Center Nurse 1 #3 L POST LE -Combined with other wound No -Current Size (cm) - Length 3.7 3.4 -Current Size (cm) - Width 1 0.7 -Current Size (cm) - Depth 0.2 0.2 -Total Square Cm 3.7 2.38 -Photo Taken Yes -Epithelialization None Present -Tunneling No -Undermining/Tunneling No -Circular Undermining No -Exudate Amt Medium Medium -Exudate Type Serosanguineous Serosanguineous -Wound Margin Distinct, Distinct, Outline Outline Attached Attached -Granulation Amt None Present (0 Large (67-100%) %) -Granulation Quality Red -Slough/Fibrin Yes -Necrosis Amt Large (67-100%) Small (1-33%) -Necrotic Tissue Type Adherent Slough Adherent Slough -Structure Exposed N/A -Texture (Leticia-wound Skin Appearance) Scarring Assessed, Scarring -Moisture (Leticia-wound Skin Appearance) No Abnormality Assessed -Color (Leticia-wound Skin Appearance) Erythema, Assessed, Hemosiderin Erythema Staining -Temperature (Leticia-wound Skin No Abnormality No Abnormality Appearance) (Pt Warm) (Pt Warm) -Tenderness on Palpation (Leticia-wound No No Skin Appearance) -Ulcer Cleansing Soap and Water Rinsed/ Irrigated with Saline -Foul Odor after Cleansing No No -Anesthetic Used 5% Lidocaine 5% Lidocaine Gel Gel #2 R POST LE -Combined with other wound No -Current Size (cm) - Length 3.1 2.8 -Current Size (cm) - Width 5.4 5 -Current Size (cm) - Depth 1 0.1 -Total Square Cm 16.74 14.0 -Photo Taken Yes No -Epithelialization None Present -Tunneling No -Undermining/Tunneling No -Circular Undermining No -Exudate Amt Medium -Exudate Type Serous Serosanguineous -Wound Margin Distinct, Distinct, Outline Outline Attached Attached -Granulation Amt None Present (0 Small (1-33%) %) -Granulation Quality Red -Slough/Fibrin Yes -Necrosis Amt Large (67-100%) Large (67-100%) -Necrotic Tissue Type Adherent Slough Adherent Slough -Structure Exposed N/A -Texture (Leticia-wound Skin Appearance) Scarring Assessed, Scarring -Moisture (Leticia-wound Skin Appearance) No Abnormality Assessed -Color (Leticia-wound Skin Appearance) Erythema, Assessed, Hemosiderin Erythema Staining -Temperature (Leticia-wound Skin No Abnormality No Abnormality Appearance) (Pt Warm) (Pt Warm) -Tenderness on Palpation (Leticia-wound No No Skin Appearance) -Ulcer Cleansing Soap and Water Rinsed/ Irrigated with Saline -Foul Odor after Cleansing No No -Anesthetic Used 5% Lidocaine 5% Lidocaine Gel Gel Lower Limb Edema Present Yes Right Calf (cm) 39.4 40.8 Right Ankle (cm) 23.7 23 Left Calf (cm) 43.6 42 Left Ankle (cm) 22.5 23 WC - Nurse 2 - General Ulcer CM Notes Start: 08/08/22 08:59 Freq: Status: Active Protocol: Activity Type Activity Date Activity User E-sign Co-sign Detail Recorded Client Recorded Date Recorded By Document 08/08/22 09:38 MW [id number] 08/08/22 10:13 MW Document 08/15/22 08:54 BM [id number] 08/15/22 09:17 BMF 08/08/22 08/15/22 09:38 08:54 Wound Center Nurse 2 #3 L POST LE -Time 09:39 08:57 -Correct Patient Yes Yes -Correct Side, Site, Position Yes Yes -Correct Procedure Yes Yes -Procedure Performed Yes Yes -Type of Procedure Debridement Debridement -Clinical Debridement Subcutaneous Subcutaneous -Tissue Removed Subcutaneous Subcutaneous -Post Debridement (cm) - Length 3.2 3.1 -Post Debridement (cm) - Width 0.8 0.9 -Post Debridement (cm) - Depth 0.2 0.1 -Total Square (Post) (cm) 2.56 2.79 -Area of Debridement (cm) - Length 3.2 3.1 -Area of Debridement (cm) - Width 0.8 0.9 -Total Square (Area) (cm) 2.56 2.79 -Tunneling No No -Undermining/Tunneling No No -Circular Undermining No No -Wound/Ulcer Outcome Not Healed -Ulcer Cleansing Rinsed/ Rinsed/ Irrigated with Irrigated with Saline Saline -Foul Odor after Cleansing No No -Bioengineered Tissue No No -Bleeding Controlled with Pressure Pressure -Treatment Response Procedure Procedure Tolerated Well Tolerated Well -Offloading No -Debridement - Subq, 1st 20sq cm Yes No #2 R POST LE -Time 09:39 09:01 -Correct Patient Yes Yes -Correct Side, Site, Position Yes Yes -Correct Procedure Yes Yes -Procedure Performed Yes Yes -Type of Procedure Debridement Debridement -Clinical Debridement Subcutaneous Subcutaneous -Tissue Removed Subcutaneous Subcutaneous -Post Debridement (cm) - Length 3.0 3.0 -Post Debridement (cm) - Width 5.5 4.5 -Post Debridement (cm) - Depth 0.2 0.1 -Total Square (Post) (cm) 16.50 13.50 -Area of Debridement (cm) - Length 3.0 3.0 -Area of Debridement (cm) - Width 5.5 4.5 -Total Square (Area) (cm) 16.50 13.50 -Tunneling No No -Undermining/Tunneling No No -Circular Undermining No No -Wound/Ulcer Outcome Not Healed -Ulcer Cleansing Rinsed/ Rinsed/ Irrigated with Irrigated with Saline Saline -Foul Odor after Cleansing No No -Bioengineered Tissue No Yes -Type of Bioengineered Tissue Epifix Mesh -Expiration Date 03/08/27 -Product Lot Number [id number] -Percent Used 100 -Lot number of Saline Used [id number] -Topical Lidocaine (%) 5 -Bleeding Controlled with Pressure Pressure -Treatment Response Procedure Procedure Tolerated Well Tolerated Well -Offloading No -Debridement - Subq, 1st 20sq cm No Yes -Debridement, SubQ, ea addt'l 20sq cm 1 or part thereof -Epifix Mesh (per sq cm) 11 Pain Scale: 0-10 Numeric Is Patient Pain Free? Yes Yes - Nurse 3 - General Ulcer D/C NN Start: 08/08/22 08:59 Freq: Status: Active Protocol: Activity Type Activity Date Activity User E-sign Co-sign Detail Recorded Client Recorded Date Recorded By Document 08/08/22 10:26 DL [id number] 08/08/22 10:34 DL Document 08/15/22 09:28 ML [id number] 08/15/22 09:29 ML 08/08/22 08/15/22 10:26 09:28 Wound Care Center Nurse 3 #3 L POST LE -Ulcer Cleansing Rinsed/ Irrigated with Saline -Foul Odor after Cleansing No -Primary Dressing Applied NonAdherent Mepilex Border Contact Layer, Mepilex Border -Other Dressing hydrogel epifix -Mepilex Border 1 1 #2 R POST LE -Ulcer Cleansing Rinsed/ Irrigated with Saline -Foul Odor after Cleansing No -Primary Dressing Applied Mepilex Border Mepilex Border -Other Dressing hydrogel -Other Covering epifix -Mepilex Border 1 1 Treatment Response Procedure Tolerated Well Pain Scale: 0-10 Numeric Is Patient Pain Free? Yes Yes - Visit Discharge Discharge Condition Stable Ambulatory Status Ambulatory, Walker Transportation Private Auto Additional Wound Wound debrided: left posterior LE Laterality: Left Type of Debridement: Excisional debridement Anesthesia Used: 4% Lidocaine Solution, 5% Lidocaine Gel and Cetacaine Depth: Down to and including healthy tissue and in the subcutaneous layer Percentage of wound debrided: 100 Tissue Removed: Yellow slough, devitalized tissue Severity: Fat Layer Exposed Amount of bleeding with debridement: Mild Bleeding Controlled with: Compression and gauze Patient tolerated procedure: Patient tolerated procedure well Assessment/Plan Assessment/Plan (1) Venous stasis ulcer of left lower leg with edema of left lower leg: CODE(S): I83.029 - Varicose veins of left lower extremity with ulcer of unspecified site; I83.892 - Varicose veins of left lower extremity with other complications; L97.929 - Non-pressure chronic ulcer of unspecified part of left lower leg with unspecified severity; R60.9 - Edema, unspecified (2) Diabetes mellitus: CODE(S): E11.9 - Type 2 diabetes mellitus without complications QUALIFIERS: Diabetes mellitus type: type 2 Diabetes mellitus detention insulin use: without detention use Diabetes mellitus complication status: with neurologic complications Diabetes mellitus complication detail: with polyneuropathy Qualified Code(s): E11.42 - Type 2 diabetes mellitus with diabetic polyneuropathy (3) Chronic obstructive pulmonary disease: CODE(S): J44.9 - Chronic obstructive pulmonary disease, unspecified QUALIFIERS: COPD type: unspecified COPD Qualified Code(s): J44.9 - Chronic obstructive pulmonary disease, unspecified (4) Hypertension: CODE(S): I10 - Essential (primary) hypertension QUALIFIERS: Hypertension type: primary hypertension Qualified Code(s): I10 - Essential (primary) hypertension (5) 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: CODE(S): I83.019 - Varicose veins of right lower extremity with ulcer of unspecified site; L97.919 - Non-pressure chronic ulcer of unspecified part of right lower leg with unspecified severity (6) Nonhealing ulcer of left lower extremity with fat layer exposed: CODE(S): L97.922 - Non-pressure chronic ulcer of unspecified part of left lower leg with fat layer exposed (7) Nonhealing ulcer of right lower extremity with fat layer exposed: CODE(S): L97.912 - Non-pressure chronic ulcer of unspecified part of right lower leg with fat layer exposed (8) Supplemental oxygen dependent: CODE(S): Z99.81 - Dependence on supplemental oxygen PLAN: Plan Debridement performed today in clinic as annotated above. At home wound-care instructions: Epifix applied to her right posterior LE ulcer today per [employer] assistant principal guidelines using 100% of product, rehydrated with hydrogel and covered with adaptic touch and secired with steristrips. She will not change the dressing on this for 1 week unless there is drainage and then would change silicone foam dressing. Will have her continue Santyl and adaptic to left ulcer daily. She will cover with silicone bordered foam dressing. Keep dressing clean and dry. Off-loading: The patient was instructed to avoid pressure and friction on the affected areas. Reposition every 2 hours at minimum. Avoid prolonged standing and/or dangling of legs. When seated, feet should be elevated at chest level. Frequent ambulation is encouraged. Diet: Patient encouraged to increase protein intake while taking caution to avoid high carbohydrate and/or sugar intake. Labs/cultures/imaging: Vascular testing ordered to evaluate for arterial and venous disease showed incompetence of accesory saphenous veins b/l and normal arterial studies except decreased at level of great toe. Follow-up: Return in 1 week for wound care follow up. Return sooner or report to the emergency room should symptoms worsen, or new symptoms arise. Note: [employer] speech recognition principal software architect software was used to create portions of this document. Sound-alike and misspelled words, as well as other principal software architect errors may be contained in the documentation.
[2022-08-22 09:04] VITALS: BP 150/80; PULSE 78; RESP 20; TEMP 36.2; BMI 34.7
--- NOTE | 2022-08-22 13:41 | PCM.WC.PN ---
History of Present Illness Date of Service: 08/22/22 Chief Complaint: Venous leg ulcer left lower extremity and right lower extremity History of Wound: This is a 76-year-old white female who presents to the wound healing center today with complaint of nonhealing ulceration of her right and left lower extremities. She has a past medical history significant for chronic hypoxia on supplemental O2, COPD, type 2 diabetes mellitus, CHF, and osteoarthritis of the bilateral knees and GERD. The patient states that her wounds initially occurred after scratching the back of her leg on something almost a month ago. She saw her PCP last week and was started on Cephalexin QID x 10 days. She was 2 days left of treatment. She has not had any improvement in her pain or ulcers since starting the antibiotic. She has been applying triple antibiotic ointment covering with gauze for the last few days but had been using hydrogel and nonadherent dressings prior to that. She states that she has not been utilizing any compression due to pain but has been elevating her legs more frequently and using a wedge pillow. She denies any systemic or localized signs of infection at this time. Denies any prior cultures being taken. 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 Progress of Wound: She tolerated treatment with Epifix to the right posterior calf. Left posterior calf also improved and tolerating treatment with Santyl. 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 Objective Data Objective Data Vital Signs: Vital Signs Temp Pulse Resp BP O2 Del Method O2 Flow Rate 97.1 F L 78 20 H 150/80 H Nasal Cannula 2 08/22/22 09:04 08/22/22 09:04 08/22/22 09:04 08/22/22 09:04 08/15/22 08:39 08/15/22 08:39 Oxygen Flow Rate (L/min) 2 Oxygen Delivery Method Nasal Cannula Weight: 91.777 kg Body Mass Index (BMI) 34.7 Physical Exam Const alert, oriented x3 and no apparent distress General Appearance: cooperative and comfortable HEENT normocephalic and head/scalp atraumatic Resp normal respiratory effort Effort and Inspection: able to speak in complete sentences Cardio regular rate and regular rhythm Skin Wounds: wounds noted Wound Narrative: as in clinical panel Psych mental status grossly normal, thought process normal, cooperative and affect normal Debridement Note Debridement Note Wound debrided: right posterior LE Laterality: Right Type of Debridement: Excisional debridement Anesthesia Used: 4% Lidocaine Solution, 5% Lidocaine Gel and Cetacaine Depth: Down to and including healthy tissue and in the subcutaneous layer Percentage of wound debrided: 100 Instrument Used: 5mm curette Tissue Removed: Yellow slough, devitalized tissue Severity: Fat Layer Exposed Amount of bleeding with debridement: Mild Bleeding Controlled with: Compression and gauze Patient tolerated procedure: Patient tolerated procedure well Post-Debridement Measurements and Additional Note: Post-Debridement Measurements/Treatment - Nurse 1 - General Ulcer Assessment Start: 08/08/22 08:59 Freq: Status: Active Protocol: CHING Activity Type Activity Date Activity User E-sign Co-sign Detail Recorded Client Recorded Date Recorded By Document 08/08/22 08:59 DL [id number] 08/08/22 09:08 DL Document 08/15/22 08:39 [facility] [id number] 08/15/22 08:45 BMF Document 08/22/22 09:04 DL [id number] 08/22/22 09:14 DL 08/08/22 08/15/22 08/22/22 08:59 08:39 09:04 - Today's Visit Information Type of service Follow-up Visit Follow-up Visit Follow-up Visit (Physician/DATA ANALYTICS SPECIALIST (Physician/DATA ANALYTICS SPECIALIST (Physician/DATA ANALYTICS SPECIALIST ) ) ) Arrival Mode Ambulatory, Ambulatory, Ambulatory, Walker Walker Walker Transfer Assistance None None None Accompanied by daughter Patient Identification Verified (Name & Yes Yes Yes ) Patient Requires Transmission-Based No No No Precautions Finger Stick Blood Sugar(mg/dl) (if didnt check indicated): Blood Sugar Stated by Patient Height and Weight Body Mass Index (BMI) 34.7 34.7 34.7 BMI Classification Obese Obese Obese Vital Signs Temperature (97.8 F-99.1 F) 98.1 F 96.8 F L 97.1 F L Temperature Source Temporal Temporal Temporal Pulse Rate (60-100) 67 60 78 Pulse Location Monitor Monitor Monitor Respiratory Rate (12-18) 22 H 18 20 H Respiratory rate source Observation Observation Observation Oxygen Delivery Method Nasal Cannula O2 L/MIN (L/min) 2 Blood Pressure (90/60-120/80) 155/84 H 168/79 H 150/80 H Blood Pressure Mean (mm Hg) 107 108 103 Source Monitor Monitor Monitor Position Sitting Blood Pressure Location Left Arm History Since Last Visit- (Skip if this is Patient's initial visit) Have you changed medications since your No No last visit? Any new allergies or adverse reactions No No No Had a fall/change in ADL's that may No No No increase risk of falls Signs or symptoms of abuse and/or No No No neglect since last visit Have you been in the hospital since your No No No last visit? Has dressing in place as prescribed No Yes Yes Has compression in place as prescribed Yes N/A Yes Has offloadiing in place as prescribed N/A N/A N/A Experienced any changes in pain level or No No management Left Footwear Regular Shoe Right Footwear Regular Shoe Pain Scale: 0-10 Numeric Is Patient Pain Free? Yes Yes Yes WC - Nurse 1 - General Ulcer Measurement Start: 08/08/22 08:59 Freq: Status: Active Protocol: Activity Type Activity Date Activity User E-sign Co-sign Detail Recorded Client Recorded Date Recorded By Document 08/08/22 08:59 DL [id number] 08/08/22 09:08 DL Document 08/15/22 08:39 [facility] [id number] 08/15/22 08:45 BMF Document 08/22/22 09:04 DL [id number] 08/22/22 09:14 DL 08/08/22 08/15/22 08/22/22 08:59 08:39 09:04 Wound Center Nurse 1 #3 L POST LE -Combined with other wound No -Current Size (cm) - Length 3.7 3.4 2.7 -Current Size (cm) - Width 1 0.7 0.6 -Current Size (cm) - Depth 0.2 0.2 0.1 -Total Square Cm 3.7 2.38 1.62 -Photo Taken Yes Yes -Epithelialization None Present -Tunneling No -Undermining/Tunneling No -Circular Undermining No -Exudate Amt Medium Medium Medium -Exudate Type Serosanguineous Serosanguineous Serosanguineous -Wound Margin Distinct, Distinct, Distinct, Outline Outline Outline Attached Attached Attached -Granulation Amt None Present (0 Large (67-100%) Medium (34-66%) %) -Granulation Quality [place] -Slough/Fibrin Yes -Necrosis Amt Large (67-100%) Small (1-33%) Medium (34-66%) -Necrotic Tissue Type Adherent Slough Adherent Slough Adherent Slough -Structure Exposed N/A N/A -Texture (Leticia-wound Skin Appearance) Scarring Assessed, Localized Edema Scarring ,Scarring -Moisture (Leticia-wound Skin Appearance) No Abnormality Assessed No Abnormality -Color (Leticia-wound Skin Appearance) Erythema, Assessed, Erythema Hemosiderin Erythema Staining -Temperature (Leticia-wound Skin No Abnormality No Abnormality No Abnormality Appearance) (Pt Warm) (Pt Warm) (Pt Warm) -Tenderness on Palpation (Leticia-wound No No No Skin Appearance) -Ulcer Cleansing Soap and Water Rinsed/ Soap and Water Irrigated with Saline -Foul Odor after Cleansing No No No -Anesthetic Used 5% Lidocaine 5% Lidocaine 5% Lidocaine Gel Gel Gel #2 R POST LE -Combined with other wound No -Current Size (cm) - Length 3.1 2.8 2.7 -Current Size (cm) - Width 5.4 5 0.6 -Current Size (cm) - Depth 1 0.1 0.1 -Total Square Cm 16.74 14.0 1.62 -Photo Taken Yes No Yes -Epithelialization None Present -Tunneling No -Undermining/Tunneling No -Circular Undermining No -Exudate Amt Medium Medium -Exudate Type Serous Serosanguineous Serosanguineous -Wound Margin Distinct, Distinct, Distinct, Outline Outline Outline Attached Attached Attached -Granulation Amt None Present (0 Small (1-33%) Medium (34-66%) %) -Granulation Quality [place] -Slough/Fibrin Yes -Necrosis Amt Large (67-100%) Large (67-100%) Medium (34-66%) -Necrotic Tissue Type Adherent Slough Adherent Slough Eschar -Structure Exposed N/A N/A -Texture (Leticia-wound Skin Appearance) Scarring Assessed, Localized Edema Scarring ,Scarring -Moisture (Leticia-wound Skin Appearance) No Abnormality Assessed No Abnormality -Color (Leticia-wound Skin Appearance) Erythema, Assessed, Erythema Hemosiderin Erythema Staining -Temperature (Leticia-wound Skin No Abnormality No Abnormality No Abnormality Appearance) (Pt Warm) (Pt Warm) (Pt Warm) -Tenderness on Palpation (Leticia-wound No No Yes Skin Appearance) -Ulcer Cleansing Soap and Water Rinsed/ Soap and Water Irrigated with Saline -Foul Odor after Cleansing No No No -Anesthetic Used 5% Lidocaine 5% Lidocaine 5% Lidocaine Gel Gel Gel Lower Limb Edema Present Yes Right Calf (cm) 39.4 40.8 38.5 Right Ankle (cm) 23.7 23 22.5 Left Calf (cm) 43.6 42 39.7 Left Ankle (cm) 22.5 23 21.5 WC - Nurse 2 - General Ulcer CM Notes Start: 08/08/22 08:59 Freq: Status: Active Protocol: Activity Type Activity Date Activity User E-sign Co-sign Detail Recorded Client Recorded Date Recorded By Document 08/08/22 09:38 MW [id number] 08/08/22 10:13 MW Document 08/15/22 08:54 BMF [id number] 08/15/22 09:17 BMF Edit Result 08/15/22 08:54 BMF (1) [id number] 08/15/22 12:45 PL Edit Result 08/15/22 08:54 BMF (2) [id number] 08/18/22 07:11 PL Document 08/22/22 09:28 MW [id number] 08/22/22 09:50 MW (1) #3 L POST LE - Debridement - Subq, 1st 20sq cm No => Yes - Debridement, SubQ, ea addt'l 20sq cm => 1 or part thereof #2 R POST LE - Debridement - Subq, 1st 20sq cm Yes => No - Debridement, SubQ, ea addt'l 20sq cm 1 => or part thereof (2) #2 R POST LE - Apply Skin Sub - 1st 25 sq cm - Legs => 1 08/08/22 08/15/22 08/22/22 09:38 08:54 09:28 Wound Center Nurse 2 #3 L POST LE -Time 09:39 08:57 09:29 -Correct Patient Yes Yes Yes -Correct Side, Site, Position Yes Yes Yes -Correct Procedure Yes Yes Yes -Procedure Performed Yes Yes Yes -Type of Procedure Debridement Debridement Debridement -Clinical Debridement Subcutaneous Subcutaneous Subcutaneous -Tissue Removed Subcutaneous Subcutaneous Subcutaneous -Post Debridement (cm) - Length 3.2 3.1 2.7 -Post Debridement (cm) - Width 0.8 0.9 0.8 -Post Debridement (cm) - Depth 0.2 0.1 0.1 -Total Square (Post) (cm) 2.56 2.79 2.16 -Area of Debridement (cm) - Length 3.2 3.1 2.7 -Area of Debridement (cm) - Width 0.8 0.9 0.8 -Total Square (Area) (cm) 2.56 2.79 2.16 -Tunneling No No No -Undermining/Tunneling No No No -Circular Undermining No No No -Wound/Ulcer Outcome Not Healed Not Healed -Ulcer Cleansing Rinsed/ Rinsed/ Rinsed/ Irrigated with Irrigated with Irrigated with Saline Saline Saline -Foul Odor after Cleansing No No No -Bioengineered Tissue No No No -Bleeding Controlled with Pressure Pressure Pressure -Treatment Response Procedure Procedure Procedure Tolerated Well Tolerated Well Tolerated Well -Offloading No No -Debridement - Subq, 1st 20sq cm Yes Yes No -Debridement, SubQ, ea addt'l 20sq cm 1 or part thereof #2 R POST LE -Time 09:39 09:01 09:32 -Correct Patient Yes Yes Yes -Correct Side, Site, Position Yes Yes Yes -Correct Procedure Yes Yes Yes -Procedure Performed Yes Yes Yes -Type of Procedure Debridement Debridement Debridement -Clinical Debridement Subcutaneous Subcutaneous Subcutaneous -Tissue Removed Subcutaneous Subcutaneous Subcutaneous -Post Debridement (cm) - Length 3.0 3.0 2.7 -Post Debridement (cm) - Width 5.5 4.5 4.7 -Post Debridement (cm) - Depth 0.2 0.1 0.1 -Total Square (Post) (cm) 16.50 13.50 12.69 -Area of Debridement (cm) - Length 3.0 3.0 2.7 -Area of Debridement (cm) - Width 5.5 4.5 4.7 -Total Square (Area) (cm) 16.50 13.50 12.69 -Tunneling No No No -Undermining/Tunneling No No No -Circular Undermining No No No -Wound/Ulcer Outcome Not Healed Not Healed -Ulcer Cleansing Rinsed/ Rinsed/ Rinsed/ Irrigated with Irrigated with Irrigated with Saline Saline Saline -Foul Odor after Cleansing No No No -Bioengineered Tissue No Yes Yes -Type of Bioengineered Tissue Epifix Mesh Epifix Mesh -Expiration Date 03/08/27 05/08/27 -Product Lot Number [id number] -Percent Used 100 100 -Lot number of Saline Used [id number] -Topical Lidocaine (%) 5 -Bleeding Controlled with Pressure Pressure Pressure -Treatment Response Procedure Procedure Procedure Tolerated Well Tolerated Well Tolerated Well -Offloading No No -Debridement - Subq, 1st 20sq cm No No No -Apply Skin Sub - 1st 25 sq cm - Legs 1 1 -Epifix Mesh (per sq cm) 11 11 Pain Scale: 0-10 Numeric Is Patient Pain Free? Yes Yes Yes - Nurse 3 - General Ulcer D/C NN Start: 08/08/22 08:59 Freq: Status: Active Protocol: Activity Type Activity Date Activity User E-sign Co-sign Detail Recorded Client Recorded Date Recorded By Document 08/08/22 10:26 DL [id number] 08/08/22 10:34 DL Document 08/15/22 09:28 ML [id number] 08/15/22 09:29 ML Document 08/22/22 10:09 RB [id number] 08/22/22 10:11 RB 08/08/22 08/15/22 08/22/22 10:26 09:28 10:09 Wound Care Center Nurse 3 #3 L POST LE -Ulcer Cleansing Rinsed/ Irrigated with Saline -Foul Odor after Cleansing No -Primary Dressing Applied NonAdherent Mepilex Border Mepilex Border Contact Layer, Mepilex Border -Other Dressing hydrogel epifix -Mepilex Border 1 1 1 #2 R POST LE -Ulcer Cleansing Rinsed/ Irrigated with Saline -Foul Odor after Cleansing No -Primary Dressing Applied Mepilex Border Mepilex Border Mepilex Border -Other Dressing hydrogel -Other Covering epifix -Mepilex Border 1 1 1 bilateral -Other circaid Treatment Response Procedure Procedure Tolerated Well Tolerated Well Pain Scale: 0-10 Numeric Is Patient Pain Free? Yes Yes Yes - Visit Discharge Discharge Condition Stable Stable Ambulatory Status Ambulatory, Ambulatory Walker Transportation Private Auto Private Auto Medication Reconcilliation completed & No provided to patient/care provider Clinical Summary of Care Provided Yes Additional Wound Wound debrided: left posterior LE Laterality: Left Type of Debridement: Excisional debridement Anesthesia Used: 4% Lidocaine Solution, 5% Lidocaine Gel and Cetacaine Depth: Down to and including healthy tissue and in the subcutaneous layer Percentage of wound debrided: 100 Instrument Used: 5mm curette Tissue Removed: Yellow slough, devitalized tissue Severity: Fat Layer Exposed Amount of bleeding with debridement: Mild Bleeding Controlled with: Compression and gauze Patient tolerated procedure: Patient tolerated procedure well Assessment/Plan Assessment/Plan (1) Venous stasis ulcer of left lower leg with edema of left lower leg: CODE(S): I83.029 - Varicose veins of left lower extremity with ulcer of unspecified site; I83.892 - Varicose veins of left lower extremity with other complications; L97.929 - Non-pressure chronic ulcer of unspecified part of left lower leg with unspecified severity; R60.9 - Edema, unspecified (2) Diabetes mellitus: CODE(S): E11.9 - Type 2 diabetes mellitus without complications QUALIFIERS: Diabetes mellitus type: type 2 Diabetes mellitus senior living insulin use: without termite inspector use Diabetes mellitus complication status: with neurologic complications Diabetes mellitus complication detail: with polyneuropathy Qualified Code(s): E11.42 - Type 2 diabetes mellitus with diabetic polyneuropathy (3) Chronic obstructive pulmonary disease: CODE(S): J44.9 - Chronic obstructive pulmonary disease, unspecified QUALIFIERS: COPD type: unspecified COPD Qualified Code(s): J44.9 - Chronic obstructive pulmonary disease, unspecified (4) Hypertension: CODE(S): I10 - Essential (primary) hypertension QUALIFIERS: Hypertension type: primary hypertension Qualified Code(s): I10 - Essential (primary) hypertension (5) 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: CODE(S): I83.019 - Varicose veins of right lower extremity with ulcer of unspecified site; L97.919 - Non-pressure chronic ulcer of unspecified part of right lower leg with unspecified severity (6) Nonhealing ulcer of left lower extremity with fat layer exposed: CODE(S): L97.922 - Non-pressure chronic ulcer of unspecified part of left lower leg with fat layer exposed (7) Nonhealing ulcer of right lower extremity with fat layer exposed: CODE(S): L97.912 - Non-pressure chronic ulcer of unspecified part of right lower leg with fat layer exposed (8) Supplemental oxygen dependent: CODE(S): Z99.81 - Dependence on supplemental oxygen PLAN: Plan Debridement performed today in clinic as annotated above. At home wound-care instructions: Epifix #2 applied to her right posterior LE ulcer today per electronic prepress system operator guidelines using 100% of product, rehydrated with hydrogel and covered with adaptic touch and secured with steristrips. She will not change the dressing on this for 1 week unless there is drainage and then would change silicone foam dressing. Will have her continue Santyl and adaptic to left ulcer daily. She will cover with silicone bordered foam dressing. Keep dressing clean and dry. Off-loading: The patient was instructed to avoid pressure and friction on the affected areas. Reposition every 2 hours at minimum. Avoid prolonged standing and/or dangling of legs. When seated, feet should be elevated at chest level. Frequent ambulation is encouraged. Diet: Patient encouraged to increase protein intake while taking caution to avoid high carbohydrate and/or sugar intake. Labs/cultures/imaging: Vascular testing ordered to evaluate for arterial and venous disease showed incompetence of accessory saphenous veins b/l and normal arterial studies except decreased at level of great toe. Follow-up: Return in 1 week for wound care follow up. Return sooner or report to the emergency room should symptoms worsen, or new symptoms arise. Note: [employer] speech recognition revenue cycle consultant software was used to create portions of this document. Sound-alike and misspelled words, as well as other revenue cycle consultant errors may be contained in the documentation.
[2022-08-29 08:27] VITALS: BP 124/70; PULSE 66; RESP 22; TEMP 36.1; BMI 34.7
--- NOTE | 2022-08-29 13:05 | PCM.WC.PN ---
History of Present Illness Date of Service: 09/05/22 Chief Complaint: Venous leg ulcer left lower extremity and right lower extremity History of Wound: This is a 76-year-old white female who presents to the wound healing center today with complaint of nonhealing ulceration of her right and left lower extremities. She has a past medical history significant for chronic hypoxia on supplemental O2, COPD, type 2 diabetes mellitus, CHF, and osteoarthritis of the bilateral knees and GERD. The patient states that her wounds initially occurred after scratching the back of her leg on something almost a month ago. She saw her PCP last week and was started on Cephalexin QID x 10 days. She was 2 days left of treatment. She has not had any improvement in her pain or ulcers since starting the antibiotic. She has been applying triple antibiotic ointment covering with gauze for the last few days but had been using hydrogel and nonadherent dressings prior to that. She states that she has not been utilizing any compression due to pain but has been elevating her legs more frequently and using a wedge pillow. She denies any systemic or localized signs of infection at this time. Denies any prior cultures being taken. 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 Progress of Wound: She tolerated treatment with Epifix to the right posterior calf. Left posterior calf also improved and tolerating treatment with Santyl. 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 Objective Data Objective Data Vital Signs: Vital Signs Temp Pulse Resp BP O2 Del Method O2 Flow Rate 97 F L 66 22 H 124/70 H Nasal Cannula 2 08/29/22 08:27 08/29/22 08:27 08/29/22 08:27 08/29/22 08:27 08/15/22 08:39 08/15/22 08:39 Oxygen Flow Rate (L/min) 2 Oxygen Delivery Method Nasal Cannula Weight: 91.777 kg Body Mass Index (BMI) 34.7 Physical Exam Const alert, oriented x3 and no apparent distress General Appearance: cooperative and comfortable HEENT normocephalic and head/scalp atraumatic Resp normal respiratory effort Effort and Inspection: able to speak in complete sentences Cardio regular rate and regular rhythm Skin Wounds: wounds noted Wound Narrative: as in clinical panel Psych mental status grossly normal, thought process normal, cooperative and affect normal Debridement Note Debridement Note Wound debrided: right posterior LE Laterality: Right Type of Debridement: Excisional debridement Anesthesia Used: 4% Lidocaine Solution, 5% Lidocaine Gel and Cetacaine Depth: Down to and including healthy tissue and in the subcutaneous layer Percentage of wound debrided: 100 Instrument Used: 5mm curette Tissue Removed: Yellow slough, devitalized tissue Severity: Fat Layer Exposed Amount of bleeding with debridement: Mild Bleeding Controlled with: Compression and gauze Patient tolerated procedure: Patient tolerated procedure well Post-Debridement Measurements and Additional Note: Post-Debridement Measurements/Treatment - Nurse 1 - General Ulcer Assessment Start: 08/08/22 08:59 Freq: Status: Active Protocol: CHING Activity Type Activity Date Activity User E-sign Co-sign Detail Recorded Client Recorded Date Recorded By Document 08/08/22 08:59 DL [id number] 08/08/22 09:08 DL Document 08/15/22 08:39 BMF [id number] 08/15/22 08:45 BMF Document 08/22/22 09:04 DL [id number] 08/22/22 09:14 DL Document 08/29/22 08:27 RB Desktop 08/29/22 08:41 RB 08/08/22 08/15/22 08/22/22 08:59 08:39 09:04 - Today's Visit Information Type of service Follow-up Visit Follow-up Visit Follow-up Visit (Physician/BALANCING MACHINE OPERATOR (Physician/BALANCING MACHINE OPERATOR (Physician/BALANCING MACHINE OPERATOR ) ) ) Arrival Mode Ambulatory, Ambulatory, Ambulatory, Walker Walker Walker Transfer Assistance None None None Accompanied by daughter Patient Identification Verified (Name & Yes Yes Yes ) Patient Requires Transmission-Based No No No Precautions Finger Stick Blood Sugar(mg/dl) (if didnt check indicated): Blood Sugar Stated by Patient Height and Weight Body Mass Index (BMI) 34.7 34.7 34.7 BMI Classification Obese Obese Obese Vital Signs Temperature (97.8 F-99.1 F) 98.1 F 96.8 F L 97.1 F L Temperature Source Temporal Temporal Temporal Pulse Rate (60-100) 67 60 78 Pulse Location Monitor Monitor Monitor Respiratory Rate (12-18) 22 H 18 20 H Respiratory rate source Observation Observation Observation Oxygen Delivery Method Nasal Cannula O2 L/MIN (L/min) 2 Blood Pressure (90/60-120/80) 155/84 H 168/79 H 150/80 H Blood Pressure Mean (mm Hg) 107 108 103 Source Monitor Monitor Monitor Position Sitting Blood Pressure Location Left Arm History Since Last Visit- (Skip if this is Patient's initial visit) Have you changed medications since your No No last visit? Any new allergies or adverse reactions No No No Had a fall/change in ADL's that may No No No increase risk of falls Signs or symptoms of abuse and/or No No No neglect since last visit Have you been in the hospital since your No No No last visit? Has dressing in place as prescribed No Yes Yes Has compression in place as prescribed Yes N/A Yes Has offloadiing in place as prescribed N/A N/A N/A Experienced any changes in pain level or No No management Left Footwear Regular Shoe Right Footwear Regular Shoe Pain Scale: 0-10 Numeric Is Patient Pain Free? Yes Yes Yes 08/29/22 08:27 WC - Today's Visit Information Type of service Follow-up Visit (Physician/BALANCING MACHINE OPERATOR ) Arrival Mode Ambulatory, Walker Transfer Assistance None Accompanied by Patient Identification Verified (Name & Yes ) Patient Requires Transmission-Based No Precautions Finger Stick Blood Sugar(mg/dl) (if indicated): Blood Sugar Height and Weight Body Mass Index (BMI) 34.7 BMI Classification Obese Vital Signs Temperature (97.8 F-99.1 F) 97 F L Temperature Source Temporal Pulse Rate (60-100) 66 Pulse Location Monitor Respiratory Rate (12-18) 22 H Respiratory rate source Observation Oxygen Delivery Method O2 L/MIN (L/min) Blood Pressure (90/60-120/80) 124/70 H Blood Pressure Mean (mm Hg) 88 Source Monitor Position Semi-Fowlers Blood Pressure Location Left Arm History Since Last Visit- (Skip if this is Patient's initial visit) Have you changed medications since your No last visit? Any new allergies or adverse reactions No Had a fall/change in ADL's that may No increase risk of falls Signs or symptoms of abuse and/or No neglect since last visit Have you been in the hospital since your No last visit? Has dressing in place as prescribed Yes Has compression in place as prescribed Yes Has offloadiing in place as prescribed No Experienced any changes in pain level or No management Left Footwear Right Footwear Pain Scale: 0-10 Numeric Is Patient Pain Free? Yes WC - Nurse 1 - General Ulcer Measurement Start: 08/08/22 08:59 Freq: Status: Active Protocol: Activity Type Activity Date Activity User E-sign Co-sign Detail Recorded Client Recorded Date Recorded By Document 08/08/22 08:59 DL [id number] 08/08/22 09:08 DL Document 08/15/22 08:39 BMF [id number] 08/15/22 08:45 BMF Document 08/22/22 09:04 DL [id number] 08/22/22 09:14 DL Document 08/29/22 08:27 RB Desktop 08/29/22 08:41 RB 08/08/22 08/15/22 08/22/22 08:59 08:39 09:04 Wound Center Nurse 1 #3 L POST LE -Combined with other wound No -Current Size (cm) - Length 3.7 3.4 2.7 -Current Size (cm) - Width 1 0.7 0.6 -Current Size (cm) - Depth 0.2 0.2 0.1 -Total Square Cm 3.7 2.38 1.62 -Photo Taken Yes Yes -Epithelialization None Present -Tunneling No -Undermining/Tunneling No -Circular Undermining No -Exudate Amt Medium Medium Medium -Exudate Type Serosanguineous Serosanguineous Serosanguineous -Wound Margin Distinct, Distinct, Distinct, Outline Outline Outline Attached Attached Attached -Granulation Amt None Present (0 Large (67-100%) Medium (34-66%) %) -Granulation Quality Red [place] -Slough/Fibrin Yes -Necrosis Amt Large (67-100%) Small (1-33%) Medium (34-66%) -Necrotic Tissue Type Adherent Slough Adherent Slough Adherent Slough -Structure Exposed N/A N/A -Texture (Leticia-wound Skin Appearance) Scarring Assessed, Localized Edema Scarring ,Scarring -Moisture (Leticia-wound Skin Appearance) No Abnormality Assessed No Abnormality -Color (Leticia-wound Skin Appearance) Erythema, Assessed, Erythema Hemosiderin Erythema Staining -Temperature (Leticia-wound Skin No Abnormality No Abnormality No Abnormality Appearance) (Pt Warm) (Pt Warm) (Pt Warm) -Tenderness on Palpation (Leticia-wound No No No Skin Appearance) -Ulcer Cleansing Soap and Water Rinsed/ Soap and Water Irrigated with Saline -Foul Odor after Cleansing No No No -Anesthetic Used 5% Lidocaine 5% Lidocaine 5% Lidocaine Gel Gel Gel #2 R POST LE -Combined with other wound No -Current Size (cm) - Length 3.1 2.8 2.7 -Current Size (cm) - Width 5.4 5 0.6 -Current Size (cm) - Depth 1 0.1 0.1 -Total Square Cm 16.74 14.0 1.62 -Photo Taken Yes No Yes -Epithelialization None Present -Tunneling No -Undermining/Tunneling No -Circular Undermining No -Exudate Amt Medium Medium -Exudate Type Serous Serosanguineous Serosanguineous -Wound Margin Distinct, Distinct, Distinct, Outline Outline Outline Attached Attached Attached -Granulation Amt None Present (0 Small (1-33%) Medium (34-66%) %) -Granulation Quality [place] -Slough/Fibrin Yes -Necrosis Amt Large (67-100%) Large (67-100%) Medium (34-66%) -Necrotic Tissue Type Adherent Slough Adherent Slough Eschar -Structure Exposed N/A N/A -Texture (Leticia-wound Skin Appearance) Scarring Assessed, Localized Edema Scarring ,Scarring -Moisture (Leticia-wound Skin Appearance) No Abnormality Assessed No Abnormality -Color (Leticia-wound Skin Appearance) Erythema, Assessed, Erythema Hemosiderin Erythema Staining -Temperature (Leticia-wound Skin No Abnormality No Abnormality No Abnormality Appearance) (Pt Warm) (Pt Warm) (Pt Warm) -Tenderness on Palpation (Leticia-wound No No Yes Skin Appearance) -Ulcer Cleansing Soap and Water Rinsed/ Soap and Water Irrigated with Saline -Foul Odor after Cleansing No No No -Anesthetic Used 5% Lidocaine 5% Lidocaine 5% Lidocaine Gel Gel Gel Lower Limb Edema Present Yes Right Calf (cm) 39.4 40.8 38.5 Right Ankle (cm) 23.7 23 22.5 Left Calf (cm) 43.6 42 39.7 Left Ankle (cm) 22.5 23 21.5 08/29/22 08:27 Wound Center Nurse 1 #3 L POST LE -Combined with other wound No -Current Size (cm) - Length 3 -Current Size (cm) - Width 0.5 -Current Size (cm) - Depth 0.1 -Total Square Cm 1.5 -Photo Taken Yes -Epithelialization -Tunneling No -Undermining/Tunneling No -Circular Undermining No -Exudate Amt Medium -Exudate Type Serosanguineous -Wound Margin Distinct, Outline Attached -Granulation Amt Medium (34-66%) -Granulation Quality [place] -Slough/Fibrin Yes -Necrosis Amt Medium (34-66%) -Necrotic Tissue Type Adherent Slough -Structure Exposed N/A -Texture (Leticia-wound Skin Appearance) Assessed, Scarring -Moisture (Leticia-wound Skin Appearance) Assessed -Color (Leticia-wound Skin Appearance) Assessed -Temperature (Leticia-wound Skin No Abnormality Appearance) (Pt Warm) -Tenderness on Palpation (Leticia-wound No Skin Appearance) -Ulcer Cleansing Wound Cleanser -Foul Odor after Cleansing No -Anesthetic Used 5% Lidocaine Gel #2 R POST LE -Combined with other wound No -Current Size (cm) - Length 2.5 -Current Size (cm) - Width 0.5 -Current Size (cm) - Depth 0.1 -Total Square Cm 1.25 -Photo Taken Yes -Epithelialization -Tunneling No -Undermining/Tunneling No -Circular Undermining No -Exudate Amt Medium -Exudate Type Serosanguineous -Wound Margin Distinct, Outline Attached -Granulation Amt Medium (34-66%) -Granulation Quality [place] -Slough/Fibrin Yes -Necrosis Amt Medium (34-66%) -Necrotic Tissue Type Adherent Slough -Structure Exposed N/A -Texture (Leticia-wound Skin Appearance) Assessed, Scarring -Moisture (Leticia-wound Skin Appearance) Assessed -Color (Leticia-wound Skin Appearance) Assessed -Temperature (Leticia-wound Skin No Abnormality Appearance) (Pt Warm) -Tenderness on Palpation (Leticia-wound No Skin Appearance) -Ulcer Cleansing Wound Cleanser -Foul Odor after Cleansing No -Anesthetic Used 5% Lidocaine Gel Lower Limb Edema Present Yes Right Calf (cm) 37 Right Ankle (cm) 24 Left Calf (cm) 38.5 Left Ankle (cm) 23.5 WC - Nurse 2 - General Ulcer CM Notes Start: 08/08/22 08:59 Freq: Status: Active Protocol: Activity Type Activity Date Activity User E-sign Co-sign Detail Recorded Client Recorded Date Recorded By Document 08/08/22 09:38 MW [id number] 08/08/22 10:13 MW Document 08/15/22 08:54 BMF [id number] 08/15/22 09:17 BMF Edit Result 08/15/22 08:54 BMF (1) [id number] 08/15/22 12:45 PL Edit Result 08/15/22 08:54 BMF (2) [id number] 08/18/22 07:11 PL Document 08/22/22 09:28 MW [id number] 08/22/22 09:50 MW Document 08/29/22 09:10 MW [id number] 08/29/22 09:48 MW (1) #3 L POST LE - Debridement - Subq, 1st 20sq cm No => Yes - Debridement, SubQ, ea addt'l 20sq cm => 1 or part thereof #2 R POST LE - Debridement - Subq, 1st 20sq cm Yes => No - Debridement, SubQ, ea addt'l 20sq cm 1 => or part thereof (2) #2 R POST LE - Apply Skin Sub - 1st 25 sq cm - Legs => 1 08/08/22 08/15/22 08/22/22 09:38 08:54 09:28 Wound Center Nurse 2 #3 L POST LE -Time 09:39 08:57 09:29 -Correct Patient Yes Yes Yes -Correct Side, Site, Position Yes Yes Yes -Correct Procedure Yes Yes Yes -Procedure Performed Yes Yes Yes -Type of Procedure Debridement Debridement Debridement -Clinical Debridement Subcutaneous Subcutaneous Subcutaneous -Tissue Removed Subcutaneous Subcutaneous Subcutaneous -Post Debridement (cm) - Length 3.2 3.1 2.7 -Post Debridement (cm) - Width 0.8 0.9 0.8 -Post Debridement (cm) - Depth 0.2 0.1 0.1 -Total Square (Post) (cm) 2.56 2.79 2.16 -Area of Debridement (cm) - Length 3.2 3.1 2.7 -Area of Debridement (cm) - Width 0.8 0.9 0.8 -Total Square (Area) (cm) 2.56 2.79 2.16 -Tunneling No No No -Undermining/Tunneling No No No -Circular Undermining No No No -Wound/Ulcer Outcome Not Healed Not Healed -Ulcer Cleansing Rinsed/ Rinsed/ Rinsed/ Irrigated with Irrigated with Irrigated with Saline Saline Saline -Foul Odor after Cleansing No No No -Bioengineered Tissue No No No -Bleeding Controlled with Pressure Pressure Pressure -Treatment Response Procedure Procedure Procedure Tolerated Well Tolerated Well Tolerated Well -Offloading No No -Debridement - Subq, 1st 20sq cm Yes Yes No -Debridement, SubQ, ea addt'l 20sq cm 1 or part thereof #2 R POST LE -Time 09:39 09:01 09:32 -Correct Patient Yes Yes Yes -Correct Side, Site, Position Yes Yes Yes -Correct Procedure Yes Yes Yes -Procedure Performed Yes Yes Yes -Type of Procedure Debridement Debridement Debridement -Clinical Debridement Subcutaneous Subcutaneous Subcutaneous -Tissue Removed Subcutaneous Subcutaneous Subcutaneous -Post Debridement (cm) - Length 3.0 3.0 2.7 -Post Debridement (cm) - Width 5.5 4.5 4.7 -Post Debridement (cm) - Depth 0.2 0.1 0.1 -Total Square (Post) (cm) 16.50 13.50 12.69 -Area of Debridement (cm) - Length 3.0 3.0 2.7 -Area of Debridement (cm) - Width 5.5 4.5 4.7 -Total Square (Area) (cm) 16.50 13.50 12.69 -Tunneling No No No -Undermining/Tunneling No No No -Circular Undermining No No No -Wound/Ulcer Outcome Not Healed Not Healed -Ulcer Cleansing Rinsed/ Rinsed/ Rinsed/ Irrigated with Irrigated with Irrigated with Saline Saline Saline -Foul Odor after Cleansing No No No -Bioengineered Tissue No Yes Yes -Type of Bioengineered Tissue Epifix Mesh Epifix Mesh -Expiration Date 03/08/27 05/08/27 -Product Lot Number [id number] -Percent Used 100 100 -Lot number of Saline Used [id number] -Topical Lidocaine (%) 5 -Bleeding Controlled with Pressure Pressure Pressure -Treatment Response Procedure Procedure Procedure Tolerated Well Tolerated Well Tolerated Well -Offloading No No -Debridement - Subq, 1st 20sq cm No No No -Apply Skin Sub - 1st 25 sq cm - Legs 1 1 -Epifix Mesh (per sq cm) 11 11 Pain Scale: 0-10 Numeric Is Patient Pain Free? Yes Yes Yes 08/29/22 09:10 Wound Center Nurse 2 #3 L POST LE -Time 09:10 -Correct Patient Yes -Correct Side, Site, Position Yes -Correct Procedure Yes -Procedure Performed Yes -Type of Procedure Debridement -Clinical Debridement Subcutaneous -Tissue Removed Subcutaneous -Post Debridement (cm) - Length 2.3 -Post Debridement (cm) - Width 0.7 -Post Debridement (cm) - Depth 0.1 -Total Square (Post) (cm) 1.61 -Area of Debridement (cm) - Length 2.3 -Area of Debridement (cm) - Width 0.7 -Total Square (Area) (cm) 1.61 -Tunneling No -Undermining/Tunneling No -Circular Undermining No -Wound/Ulcer Outcome Not Healed -Ulcer Cleansing Rinsed/ Irrigated with Saline -Foul Odor after Cleansing No -Bioengineered Tissue No -Bleeding Controlled with Pressure -Treatment Response Procedure Tolerated Well -Offloading No -Debridement - Subq, 1st 20sq cm Yes -Debridement, SubQ, ea addt'l 20sq cm or part thereof #2 R POST LE -Time 09:11 -Correct Patient Yes -Correct Side, Site, Position Yes -Correct Procedure Yes -Procedure Performed Yes -Type of Procedure Debridement -Clinical Debridement Subcutaneous -Tissue Removed Subcutaneous -Post Debridement (cm) - Length 2.7 -Post Debridement (cm) - Width 4.5 -Post Debridement (cm) - Depth 0.1 -Total Square (Post) (cm) 12.15 -Area of Debridement (cm) - Length 2.7 -Area of Debridement (cm) - Width 4.5 -Total Square (Area) (cm) 12.15 -Tunneling No -Undermining/Tunneling No -Circular Undermining No -Wound/Ulcer Outcome Not Healed -Ulcer Cleansing Rinsed/ Irrigated with Saline -Foul Odor after Cleansing No -Bioengineered Tissue Yes -Type of Bioengineered Tissue Epifix Mesh -Expiration Date 05/08/27 -Product Lot Number 100 -Percent Used 100 -Lot number of Saline Used [id number] -Topical Lidocaine (%) -Bleeding Controlled with Pressure -Treatment Response Procedure Tolerated Well -Offloading No -Debridement - Subq, 1st 20sq cm No -Apply Skin Sub - 1st 25 sq cm - Legs 1 -Epifix Mesh (per sq cm) 11 Pain Scale: 0-10 Numeric Is Patient Pain Free? Yes - Nurse 3 - General Ulcer D/C NN Start: 08/08/22 08:59 Freq: Status: Active Protocol: Activity Type Activity Date Activity User E-sign Co-sign Detail Recorded Client Recorded Date Recorded By Document 08/08/22 10:26 DL [id number] 08/08/22 10:34 DL Document 08/15/22 09:28 ML [id number] 08/15/22 09:29 ML Document 08/22/22 10:09 RB [id number] 08/22/22 10:11 RB Document 08/29/22 10:06 [facility] [id number] 08/29/22 10:07 BMF 08/08/22 08/15/22 08/22/22 10:26 09:28 10:09 Wound Care Center Nurse 3 #3 L POST LE -Ulcer Cleansing Rinsed/ Irrigated with Saline -Foul Odor after Cleansing No -Primary Dressing Applied NonAdherent Mepilex Border Mepilex Border Contact Layer, Mepilex Border -Other Dressing hydrogel epifix -Primary Dressing Covered/Secured with -Other Covering -Mepilex Border 1 1 1 #2 R POST LE -Ulcer Cleansing Rinsed/ Irrigated with Saline -Foul Odor after Cleansing No -Primary Dressing Applied Mepilex Border Mepilex Border Mepilex Border -Other Dressing hydrogel -Primary Dressing Covered/Secured with -Other Covering epifix -Mepilex Border 1 1 1 bilateral -Other circaid Treatment Response Procedure Procedure Tolerated Well Tolerated Well Pain Scale: 0-10 Numeric Is Patient Pain Free? Yes Yes Yes - Visit Discharge Discharge Condition Stable Stable Ambulatory Status Ambulatory, Ambulatory Walker Transportation Private Auto Private Auto Accompanied by Medication Reconcilliation completed & No provided to patient/care provider Clinical Summary of Care Provided Yes 08/29/22 10:06 Wound Care Center Nurse 3 #3 L POST LE -Ulcer Cleansing -Foul Odor after Cleansing -Primary Dressing Applied -Other Dressing EPIFIX -Primary Dressing Covered/Secured with Dry Gauze & Roll Gauze, Secured with Tape -Other Covering ABD -Mepilex Border #2 R POST LE -Ulcer Cleansing -Foul Odor after Cleansing -Primary Dressing Applied -Other Dressing EPIFIX -Primary Dressing Covered/Secured with Dry Gauze & Roll Gauze, Secured with Tape -Other Covering ABD -Mepilex Border bilateral -Other LYNNE CIRCAIDS APPLIED Treatment Response Procedure Tolerated Well Pain Scale: 0-10 Numeric Is Patient Pain Free? Yes WC - Visit Discharge Discharge Condition Stable Ambulatory Status Ambulatory, Walker Transportation Private Auto Accompanied by 2 DAUGHTERS Medication Reconcilliation completed & provided to patient/care provider Clinical Summary of Care Provided Additional Wound Wound debrided: left posterior LE Laterality: Left Type of Debridement: Excisional debridement Anesthesia Used: 4% Lidocaine Solution, 5% Lidocaine Gel and Cetacaine Depth: Down to and including healthy tissue and in the subcutaneous layer Percentage of wound debrided: 100 Instrument Used: 5mm curette Tissue Removed: Yellow slough, devitalized tissue Severity: Fat Layer Exposed Amount of bleeding with debridement: Mild Bleeding Controlled with: Compression and gauze Patient tolerated procedure: Patient tolerated procedure well Assessment/Plan Assessment/Plan (1) Venous stasis ulcer of left lower leg with edema of left lower leg: CODE(S): I83.029 - Varicose veins of left lower extremity with ulcer of unspecified site; I83.892 - Varicose veins of left lower extremity with other complications; L97.929 - Non-pressure chronic ulcer of unspecified part of left lower leg with unspecified severity; R60.9 - Edema, unspecified (2) Diabetes mellitus: CODE(S): E11.9 - Type 2 diabetes mellitus without complications QUALIFIERS: Diabetes mellitus complication detail: with polyneuropathy Diabetes mellitus complication status: with neurologic complications Diabetes mellitus termite control representative insulin use: without termite control representative use Diabetes mellitus type: type 2 Qualified Code(s): E11.42 - Type 2 diabetes mellitus with diabetic polyneuropathy (3) Chronic obstructive pulmonary disease: CODE(S): J44.9 - Chronic obstructive pulmonary disease, unspecified QUALIFIERS: COPD type: unspecified COPD Qualified Code(s): J44.9 - Chronic obstructive pulmonary disease, unspecified (4) Hypertension: CODE(S): I10 - Essential (primary) hypertension QUALIFIERS: Hypertension type: primary hypertension Qualified Code(s): I10 - Essential (primary) hypertension (5) 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: CODE(S): I83.019 - Varicose veins of right lower extremity with ulcer of unspecified site; L97.919 - Non-pressure chronic ulcer of unspecified part of right lower leg with unspecified severity (6) Nonhealing ulcer of left lower extremity with fat layer exposed: CODE(S): L97.922 - Non-pressure chronic ulcer of unspecified part of left lower leg with fat layer exposed (7) Nonhealing ulcer of right lower extremity with fat layer exposed: CODE(S): L97.912 - Non-pressure chronic ulcer of unspecified part of right lower leg with fat layer exposed (8) Supplemental oxygen dependent: CODE(S): Z99.81 - Dependence on supplemental oxygen PLAN: Plan Debridement performed today in clinic as annotated above. At home wound-care instructions: Epifix #3 applied to her right posterior LE ulcer today per human development professor guidelines using 100% of product, rehydrated with hydrogel and covered with adaptic touch and secured with steristrips. She will not change the dressing on this for 1 week unless there is drainage and then would change silicone foam dressing. Will have her continue Santyl and adaptic to left ulcer daily. She will cover with silicone bordered foam dressing. Keep dressing clean and dry. Off-loading: The patient was instructed to avoid pressure and friction on the affected areas. Reposition every 2 hours at minimum. Avoid prolonged standing and/or dangling of legs. When seated, feet should be elevated at chest level. Frequent ambulation is encouraged. Diet: Patient encouraged to increase protein intake while taking caution to avoid high carbohydrate and/or sugar intake. Labs/cultures/imaging: Vascular testing ordered to evaluate for arterial and venous disease showed incompetence of accessory saphenous veins b/l and normal arterial studies except decreased at level of great toe. Follow-up: Return in 1 week for wound care follow up. Return sooner or report to the emergency room should symptoms worsen, or new symptoms arise. Note: [employer] speech recognition architecture technician software was used to create portions of this document. Sound-alike and misspelled words, as well as other architecture technician errors may be contained in the documentation.
[2022-09-05 09:13] VITALS: BP 143/69; PULSE 57; RESP 20; TEMP 36.2; BMI 34.7
--- NOTE | 2022-09-05 14:05 | PCM.WC.PN ---
History of Present Illness Date of Service: 09/05/22 Chief Complaint: Venous leg ulcer left lower extremity and right lower extremity History of Wound: This is a 76-year-old white female who presents to the wound healing center today with complaint of nonhealing ulceration of her right and left lower extremities. She has a past medical history significant for chronic hypoxia on supplemental O2, COPD, type 2 diabetes mellitus, CHF, and osteoarthritis of the bilateral knees and GERD. The patient states that her wounds initially occurred after scratching the back of her leg on something almost a month ago. She saw her PCP last week and was started on Cephalexin QID x 10 days. She was 2 days left of treatment. She has not had any improvement in her pain or ulcers since starting the antibiotic. She has been applying triple antibiotic ointment covering with gauze for the last few days but had been using hydrogel and nonadherent dressings prior to that. She states that she has not been utilizing any compression due to pain but has been elevating her legs more frequently and using a wedge pillow. She denies any systemic or localized signs of infection at this time. Denies any prior cultures being taken. 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 Progress of Wound: She tolerated treatment with Epifix to the right posterior calf. Left posterior calf also improved and tolerating treatment with Santyl. 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 Objective Data Objective Data Vital Signs: Vital Signs Temp Pulse Resp BP O2 Del Method O2 Flow Rate 97.2 F L 57 L 20 H 143/69 H Nasal Cannula 2 09/05/22 09:13 09/05/22 09:13 09/05/22 09:13 09/05/22 09:13 08/15/22 08:39 08/15/22 08:39 Oxygen Flow Rate (L/min) 2 Oxygen Delivery Method Nasal Cannula Weight: 91.777 kg Body Mass Index (BMI) 34.7 Physical Exam Const alert, oriented x3 and no apparent distress General Appearance: cooperative and comfortable HEENT normocephalic and head/scalp atraumatic Resp normal respiratory effort Effort and Inspection: able to speak in complete sentences Cardio regular rate and regular rhythm Skin Wounds: wounds noted Wound Narrative: as in clinical panel Psych mental status grossly normal, thought process normal, cooperative and affect normal Debridement Note Debridement Note Wound debrided: right posterior LE Laterality: Right Type of Debridement: Excisional debridement Anesthesia Used: 4% Lidocaine Solution, 5% Lidocaine Gel and Cetacaine Depth: Down to and including healthy tissue and in the subcutaneous layer Percentage of wound debrided: 100 Instrument Used: 5mm curette Tissue Removed: Yellow slough, devitalized tissue Severity: Fat Layer Exposed Amount of bleeding with debridement: Mild Bleeding Controlled with: Compression and gauze Patient tolerated procedure: Patient tolerated procedure well Post-Debridement Measurements and Additional Note: Post-Debridement Measurements/Treatment - Nurse 1 - General Ulcer Assessment Start: 08/08/22 08:59 Freq: Status: Active Protocol: CHING Activity Type Activity Date Activity User E-sign Co-sign Detail Recorded Client Recorded Date Recorded By Document 08/08/22 08:59 DL [id number] 08/08/22 09:08 DL Document 08/15/22 08:39 [facility] [id number] 08/15/22 08:45 BMF Document 08/22/22 09:04 DL [id number] 08/22/22 09:14 DL Document 08/29/22 08:27 RB Desktop 08/29/22 08:41 RB Document 09/05/22 09:13 RB [id number] 09/05/22 09:26 RB 08/08/22 08/15/22 08/22/22 08:59 08:39 09:04 - Today's Visit Information Type of service Follow-up Visit Follow-up Visit Follow-up Visit (Physician/BAND SAW [facility]NER (Physician/BAND SAW RUNNER (Physician/BAND SAW RUNNER ) ) ) Arrival Mode Ambulatory, Ambulatory, Ambulatory, Walker Walker Walker Transfer Assistance None None None Accompanied by daughter Patient Identification Verified (Name & Yes Yes Yes ) Patient Requires Transmission-Based No No No Precautions Finger Stick Blood Sugar(mg/dl) (if didnt check indicated): Blood Sugar Stated by Patient Height and Weight Body Mass Index (BMI) 34.7 34.7 34.7 BMI Classification Obese Obese Obese Vital Signs Temperature (97.8 F-99.1 F) 98.1 F 96.8 F L 97.1 F L Temperature Source Temporal Temporal Temporal Pulse Rate (60-100) 67 60 78 Pulse Location Monitor Monitor Monitor Respiratory Rate (12-18) 22 H 18 20 H Respiratory rate source Observation Observation Observation Oxygen Delivery Method Nasal Cannula O2 L/MIN (L/min) 2 Blood Pressure (90/60-120/80) 155/84 H 168/79 H 150/80 H Blood Pressure Mean (mm Hg) 107 108 103 Source Monitor Monitor Monitor Position Sitting Blood Pressure Location Left Arm History Since Last Visit- (Skip if this is Patient's initial visit) Have you changed medications since your No No last visit? Any new allergies or adverse reactions No No No Had a fall/change in ADL's that may No No No increase risk of falls Signs or symptoms of abuse and/or No No No neglect since last visit Have you been in the hospital since your No No No last visit? Has dressing in place as prescribed No Yes Yes Has compression in place as prescribed Yes N/A Yes Has offloadiing in place as prescribed N/A N/A N/A Experienced any changes in pain level or No No management Left Footwear Regular Shoe Right Footwear Regular Shoe Pain Scale: 0-10 Numeric Is Patient Pain Free? Yes Yes Yes 08/29/22 09/05/22 08:27 09:13 WC - Today's Visit Information Type of service Follow-up Visit Follow-up Visit (Physician/BAND SAW RUNNER (Physician/BAND SAW RUNNER ) ) Arrival Mode Ambulatory, Ambulatory, Walker Walker Transfer Assistance None None Accompanied by Patient Identification Verified (Name & Yes Yes ) Patient Requires Transmission-Based No No Precautions Finger Stick Blood Sugar(mg/dl) (if 127 indicated): Blood Sugar Stated by Patient Height and Weight Body Mass Index (BMI) 34.7 34.7 BMI Classification Obese Obese Vital Signs Temperature (97.8 F-99.1 F) 97 F L 97.2 F L Temperature Source Temporal Temporal Pulse Rate (60-100) 66 57 L Pulse Location Monitor Monitor Respiratory Rate (12-18) 22 H 20 H Respiratory rate source Observation Observation Oxygen Delivery Method O2 L/MIN (L/min) Blood Pressure (90/60-120/80) 124/70 H 143/69 H Blood Pressure Mean (mm Hg) 88 93 Source Monitor Monitor Position Semi-Fowlers Blood Pressure Location Left Arm History Since Last Visit- (Skip if this is Patient's initial visit) Have you changed medications since your No No last visit? Any new allergies or adverse reactions No No Had a fall/change in ADL's that may No No increase risk of falls Signs or symptoms of abuse and/or No No neglect since last visit Have you been in the hospital since your No Yes last visit? Has dressing in place as prescribed Yes No Has compression in place as prescribed Yes Yes Has offloadiing in place as prescribed No N/A Experienced any changes in pain level or No No management Left Footwear Right Footwear Pain Scale: 0-10 Numeric Is Patient Pain Free? Yes Yes WC - Nurse 1 - General Ulcer Measurement Start: 08/08/22 08:59 Freq: Status: Active Protocol: Activity Type Activity Date Activity User E-sign Co-sign Detail Recorded Client Recorded Date Recorded By Document 08/08/22 08:59 DL [id number] 08/08/22 09:08 DL Document 08/15/22 08:39 BMF [id number] 08/15/22 08:45 BMF Document 08/22/22 09:04 DL [id number] 08/22/22 09:14 DL Document 08/29/22 08:27 RB Desktop 08/29/22 08:41 RB Document 09/05/22 09:13 RB [id number] 09/05/22 09:26 RB 08/08/22 08/15/22 08/22/22 08:59 08:39 09:04 Wound Center Nurse 1 #3 L POST LE -Combined with other wound No -Current Size (cm) - Length 3.7 3.4 2.7 -Current Size (cm) - Width 1 0.7 0.6 -Current Size (cm) - Depth 0.2 0.2 0.1 -Total Square Cm 3.7 2.38 1.62 -Photo Taken Yes Yes -Epithelialization None Present -Tunneling No -Undermining/Tunneling No -Circular Undermining No -Exudate Amt Medium Medium Medium -Exudate Type Serosanguineous Serosanguineous Serosanguineous -Wound Margin Distinct, Distinct, Distinct, Outline Outline Outline Attached Attached Attached -Granulation Amt None Present (0 Large (67-100%) Medium (34-66%) %) -Granulation Quality [place] -Slough/Fibrin Yes -Necrosis Amt Large (67-100%) Small (1-33%) Medium (34-66%) -Necrotic Tissue Type Adherent Slough Adherent Slough Adherent Slough -Structure Exposed N/A N/A -Texture (Leticia-wound Skin Appearance) Scarring Assessed, Localized Edema Scarring ,Scarring -Moisture (Leticia-wound Skin Appearance) No Abnormality Assessed No Abnormality -Color (Leticia-wound Skin Appearance) Erythema, Assessed, Erythema Hemosiderin Erythema Staining -Temperature (Leticia-wound Skin No Abnormality No Abnormality No Abnormality Appearance) (Pt Warm) (Pt Warm) (Pt Warm) -Tenderness on Palpation (Leticia-wound No No No Skin Appearance) -Ulcer Cleansing Soap and Water Rinsed/ Soap and Water Irrigated with Saline -Foul Odor after Cleansing No No No -Anesthetic Used 5% Lidocaine 5% Lidocaine 5% Lidocaine Gel Gel Gel #2 R POST LE -Combined with other wound No -Current Size (cm) - Length 3.1 2.8 2.7 -Current Size (cm) - Width 5.4 5 0.6 -Current Size (cm) - Depth 1 0.1 0.1 -Total Square Cm 16.74 14.0 1.62 -Photo Taken Yes No Yes -Epithelialization None Present -Tunneling No -Undermining/Tunneling No -Circular Undermining No -Exudate Amt Medium Medium -Exudate Type Serous Serosanguineous Serosanguineous -Wound Margin Distinct, Distinct, Distinct, Outline Outline Outline Attached Attached Attached -Granulation Amt None Present (0 Small (1-33%) Medium (34-66%) %) -Granulation Quality [place] -Slough/Fibrin Yes -Necrosis Amt Large (67-100%) Large (67-100%) Medium (34-66%) -Necrotic Tissue Type Adherent Slough Adherent Slough Eschar -Structure Exposed N/A N/A -Texture (Leticia-wound Skin Appearance) Scarring Assessed, Localized Edema Scarring ,Scarring -Moisture (Leticia-wound Skin Appearance) No Abnormality Assessed No Abnormality -Color (Leticia-wound Skin Appearance) Erythema, Assessed, Erythema Hemosiderin Erythema Staining -Temperature (Leticia-wound Skin No Abnormality No Abnormality No Abnormality Appearance) (Pt Warm) (Pt Warm) (Pt Warm) -Tenderness on Palpation (Leticia-wound No No Yes Skin Appearance) -Ulcer Cleansing Soap and Water Rinsed/ Soap and Water Irrigated with Saline -Foul Odor after Cleansing No No No -Anesthetic Used 5% Lidocaine 5% Lidocaine 5% Lidocaine Gel Gel Gel Lower Limb Edema Present Yes Right Calf (cm) 39.4 40.8 38.5 Right Ankle (cm) 23.7 23 22.5 Left Calf (cm) 43.6 42 39.7 Left Ankle (cm) 22.5 23 21.5 08/29/22 09/05/22 08:27 09:13 Wound Center Nurse 1 #3 L POST LE -Combined with other wound No -Current Size (cm) - Length 3 2.1 -Current Size (cm) - Width 0.5 0.4 -Current Size (cm) - Depth 0.1 0.1 -Total Square Cm 1.5 0.84 -Photo Taken Yes -Epithelialization -Tunneling No -Undermining/Tunneling No -Circular Undermining No -Exudate Amt Medium Medium -Exudate Type Serosanguineous Serosanguineous -Wound Margin Distinct, Distinct, Outline Outline Attached Attached -Granulation Amt Medium (34-66%) Medium (34-66%) -Granulation Quality [place] -Slough/Fibrin Yes Yes -Necrosis Amt Medium (34-66%) Medium (34-66%) -Necrotic Tissue Type Adherent Slough Adherent Slough -Structure Exposed N/A -Texture (Leticia-wound Skin Appearance) Assessed, Assessed Scarring -Moisture (Leticia-wound Skin Appearance) Assessed Assessed -Color (Leticia-wound Skin Appearance) Assessed Assessed, Erythema -Temperature (Leticia-wound Skin No Abnormality No Abnormality Appearance) (Pt Warm) (Pt Warm) -Tenderness on Palpation (Leticia-wound No Yes Skin Appearance) -Ulcer Cleansing Wound Cleanser Soap and Water -Foul Odor after Cleansing No No -Anesthetic Used 5% Lidocaine 4% Lidocaine Gel Solution #2 R POST LE -Combined with other wound No -Current Size (cm) - Length 2.5 2.6 -Current Size (cm) - Width 0.5 4 -Current Size (cm) - Depth 0.1 0.2 -Total Square Cm 1.25 10.4 -Photo Taken Yes -Epithelialization -Tunneling No -Undermining/Tunneling No -Circular Undermining No -Exudate Amt Medium Medium -Exudate Type Serosanguineous Serosanguineous -Wound Margin Distinct, Distinct, Outline Outline Attached Attached -Granulation Amt Medium (34-66%) -Granulation Quality [place] -Slough/Fibrin Yes -Necrosis Amt Medium (34-66%) Medium (34-66%) -Necrotic Tissue Type Adherent Slough Adherent Slough -Structure Exposed N/A -Texture (Leticia-wound Skin Appearance) Assessed, Assessed Scarring -Moisture ([place]-wound Skin Appearance) Assessed Assessed -Color (Leticia-wound Skin Appearance) Assessed Assessed, Erythema -Temperature (Leticia-wound Skin No Abnormality No Abnormality Appearance) (Pt Warm) (Pt Warm) -Tenderness on Palpation (Leticia-wound No Yes Skin Appearance) -Ulcer Cleansing Wound Cleanser Soap and Water -Foul Odor after Cleansing No No -Anesthetic Used 5% Lidocaine 5% Lidocaine Gel Gel Lower Limb Edema Present Yes Right Calf (cm) 37 39.5 Right Ankle (cm) 24 22.5 Left Calf (cm) 38.5 40.5 Left Ankle (cm) 23.5 22.2 WC - Nurse 2 - General Ulcer CM Notes Start: 08/08/22 08:59 Freq: Status: Active Protocol: Activity Type Activity Date Activity User E-sign Co-sign Detail Recorded Client Recorded Date Recorded By Document 08/08/22 09:38 MW [id number] 08/08/22 10:13 MW Document 08/15/22 08:54 BMF [id number] 08/15/22 09:17 BMF Edit Result 08/15/22 08:54 BMF (1) [id number] 08/15/22 12:45 PL Edit Result 08/15/22 08:54 BMF (2) [id number] 08/18/22 07:11 PL Document 08/22/22 09:28 MW [id number] 08/22/22 09:50 MW Document 08/29/22 09:10 MW [id number] 08/29/22 09:48 MW Document 09/05/22 09:30 MW [id number] 09/05/22 09:52 MW (1) #3 L POST LE - Debridement - Subq, 1st 20sq cm No => Yes - Debridement, SubQ, ea addt'l 20sq cm => 1 or part thereof #2 R POST LE - Debridement - Subq, 1st 20sq cm Yes => No - Debridement, SubQ, ea addt'l 20sq cm 1 => or part thereof (2) #2 R POST LE - Apply Skin Sub - 1st 25 sq cm - Legs => 1 08/08/22 08/15/22 08/22/22 09:38 08:54 09:28 Wound Center Nurse 2 #3 L POST LE -Time 09:39 08:57 09:29 -Correct Patient Yes Yes Yes -Correct Side, Site, Position Yes Yes Yes -Correct Procedure Yes Yes Yes -Procedure Performed Yes Yes Yes -Type of Procedure Debridement Debridement Debridement -Clinical Debridement Subcutaneous Subcutaneous Subcutaneous -Tissue Removed Subcutaneous Subcutaneous Subcutaneous -Post Debridement (cm) - Length 3.2 3.1 2.7 -Post Debridement (cm) - Width 0.8 0.9 0.8 -Post Debridement (cm) - Depth 0.2 0.1 0.1 -Total Square (Post) (cm) 2.56 2.79 2.16 -Area of Debridement (cm) - Length 3.2 3.1 2.7 -Area of Debridement (cm) - Width 0.8 0.9 0.8 -Total Square (Area) (cm) 2.56 2.79 2.16 -Tunneling No No No -Undermining/Tunneling No No No -Circular Undermining No No No -Wound/Ulcer Outcome Not Healed Not Healed -Ulcer Cleansing Rinsed/ Rinsed/ Rinsed/ Irrigated with Irrigated with Irrigated with Saline Saline Saline -Foul Odor after Cleansing No No No -Bioengineered Tissue No No No -Bleeding Controlled with Pressure Pressure Pressure -Treatment Response Procedure Procedure Procedure Tolerated Well Tolerated Well Tolerated Well -Offloading No No -Debridement - Subq, 1st 20sq cm Yes Yes No -Debridement, SubQ, ea addt'l 20sq cm 1 or part thereof #2 R POST LE -Time 09:39 09:01 09:32 -Correct Patient Yes Yes Yes -Correct Side, Site, Position Yes Yes Yes -Correct Procedure Yes Yes Yes -Procedure Performed Yes Yes Yes -Type of Procedure Debridement Debridement Debridement -Clinical Debridement Subcutaneous Subcutaneous Subcutaneous -Tissue Removed Subcutaneous Subcutaneous Subcutaneous -Post Debridement (cm) - Length 3.0 3.0 2.7 -Post Debridement (cm) - Width 5.5 4.5 4.7 -Post Debridement (cm) - Depth 0.2 0.1 0.1 -Total Square (Post) (cm) 16.50 13.50 12.69 -Area of Debridement (cm) - Length 3.0 3.0 2.7 -Area of Debridement (cm) - Width 5.5 4.5 4.7 -Total Square (Area) (cm) 16.50 13.50 12.69 -Tunneling No No No -Undermining/Tunneling No No No -Circular Undermining No No No -Wound/Ulcer Outcome Not Healed Not Healed -Ulcer Cleansing Rinsed/ Rinsed/ Rinsed/ Irrigated with Irrigated with Irrigated with Saline Saline Saline -Foul Odor after Cleansing No No No -Bioengineered Tissue No Yes Yes -Type of Bioengineered Tissue Epifix Mesh Epifix Mesh -Expiration Date 03/08/27 05/08/27 -Product Lot Number [id number] -Percent Used 100 100 -Lot number of Saline Used [id number] -Topical Lidocaine (%) 5 -Bleeding Controlled with Pressure Pressure Pressure -Treatment Response Procedure Procedure Procedure Tolerated Well Tolerated Well Tolerated Well -Offloading No No -Debridement - Subq, 1st 20sq cm No No No -Apply Skin Sub - 1st 25 sq cm - Legs 1 1 -Epifix (per sq cm) -Epifix Mesh (per sq cm) 11 11 Pain Scale: 0-10 Numeric Is Patient Pain Free? Yes Yes Yes 08/29/22 09/05/22 09:10 09:30 Wound Center Nurse 2 #3 L POST LE -Time 09:10 09:31 -Correct Patient Yes Yes -Correct Side, Site, Position Yes Yes -Correct Procedure Yes Yes -Procedure Performed Yes Yes -Type of Procedure Debridement Debridement -Clinical Debridement Subcutaneous Subcutaneous -Tissue Removed Subcutaneous Subcutaneous -Post Debridement (cm) - Length 2.3 2.4 -Post Debridement (cm) - Width 0.7 0.4 -Post Debridement (cm) - Depth 0.1 0.1 -Total Square (Post) (cm) 1.61 0.96 -Area of Debridement (cm) - Length 2.3 2.4 -Area of Debridement (cm) - Width 0.7 0.4 -Total Square (Area) (cm) 1.61 0.96 -Tunneling No No -Undermining/Tunneling No No -Circular Undermining No No -Wound/Ulcer Outcome Not Healed Not Healed -Ulcer Cleansing Rinsed/ Rinsed/ Irrigated with Irrigated with Saline Saline -Foul Odor after Cleansing No No -Bioengineered Tissue No No -Bleeding Controlled with Pressure Pressure -Treatment Response Procedure Procedure Tolerated Well Tolerated Well -Offloading No No -Debridement - Subq, 1st 20sq cm Yes Yes -Debridement, SubQ, ea addt'l 20sq cm or part thereof #2 R POST LE -Time 09:11 09:31 -Correct Patient Yes Yes -Correct Side, Site, Position Yes Yes -Correct Procedure Yes Yes -Procedure Performed Yes Yes -Type of Procedure Debridement Debridement -Clinical Debridement Subcutaneous Subcutaneous -Tissue Removed Subcutaneous Subcutaneous -Post Debridement (cm) - Length 2.7 2.7 -Post Debridement (cm) - Width 4.5 4.1 -Post Debridement (cm) - Depth 0.1 0.1 -Total Square (Post) (cm) 12.15 11.07 -Area of Debridement (cm) - Length 2.7 2.7 -Area of Debridement (cm) - Width 4.5 4.1 -Total Square (Area) (cm) 12.15 11.07 -Tunneling No No -Undermining/Tunneling No No -Circular Undermining No No -Wound/Ulcer Outcome Not Healed Not Healed -Ulcer Cleansing Rinsed/ Rinsed/ Irrigated with Irrigated with Saline Saline -Foul Odor after Cleansing No No -Bioengineered Tissue Yes Yes -Type of Bioengineered Tissue Epifix Mesh Epifix -Expiration Date 05/08/27 05/08/27 -Product Lot Number 100 [id number] -Percent Used 100 100 -Lot number of Saline Used [id number] -Topical Lidocaine (%) -Bleeding Controlled with Pressure Pressure -Treatment Response Procedure Procedure Tolerated Well Tolerated Well -Offloading No No -Debridement - Subq, 1st 20sq cm No No -Apply Skin Sub - 1st 25 sq cm - Legs 1 1 -Epifix (per sq cm) 4 -Epifix Mesh (per sq cm) 11 Pain Scale: 0-10 Numeric Is Patient Pain Free? Yes Yes WC - Nurse 3 - General Ulcer D/C NN Start: 08/08/22 08:59 Freq: Status: Active Protocol: Activity Type Activity Date Activity User E-sign Co-sign Detail Recorded Client Recorded Date Recorded By Document 08/08/22 10:26 DL [id number] 08/08/22 10:34 DL Document 08/15/22 09:28 ML [id number] 08/15/22 09:29 ML Document 08/22/22 10:09 RB [id number] 08/22/22 10:11 RB Document 08/29/22 10:06 F [id number] 08/29/22 10:07 BMF Document 09/05/22 10:08 DL [id number] 09/05/22 10:10 DL 08/08/22 08/15/22 08/22/22 10:26 09:28 10:09 Wound Care Center Nurse 3 #3 L POST LE -Ulcer Cleansing Rinsed/ Irrigated with Saline -Foul Odor after Cleansing No -Primary Dressing Applied NonAdherent Mepilex Border Mepilex Border Contact Layer, Mepilex Border -Other Dressing hydrogel epifix -Primary Dressing Covered/Secured with -Other Covering -Mepilex Border 1 1 1 #2 R POST LE -Ulcer Cleansing Rinsed/ Irrigated with Saline -Foul Odor after Cleansing No -Primary Dressing Applied Mepilex Border Mepilex Border Mepilex Border -Other Dressing hydrogel -Primary Dressing Covered/Secured with -Other Covering epifix -Mepilex Border 1 1 1 bilateral -Stockings -Other circaid Treatment Response Procedure Procedure Tolerated Well Tolerated Well Pain Scale: 0-10 Numeric Is Patient Pain Free? Yes Yes Yes WC - Visit Discharge Discharge Condition Stable Stable Ambulatory Status Ambulatory, Ambulatory Walker Transportation Private Auto Private Auto Accompanied by Medication Reconcilliation completed & No provided to patient/care provider Clinical Summary of Care Provided Yes 08/29/22 09/05/22 10:06 10:08 Wound Care Center Nurse 3 #3 L POST LE -Ulcer Cleansing -Foul Odor after Cleansing No -Primary Dressing Applied -Other Dressing EPIFIX Epifix/hydrogel -Primary Dressing Covered/Secured with Dry Gauze & Dry Gauze, Roll Gauze, Secured with Secured with Tape Tape -Other Covering ABD -Mepilex Border #2 R POST LE -Ulcer Cleansing -Foul Odor after Cleansing No -Primary Dressing Applied -Other Dressing EPIFIX Epifix/hydrogel -Primary Dressing Covered/Secured with Dry Gauze & Dry Gauze, Roll Gauze, Secured with Secured with Tape Tape -Other Covering ABD -Mepilex Border bilateral -Stockings Yes -Other LYNNE CIRCAIDS APPLIED Treatment Response Procedure Procedure Tolerated Well Tolerated Well Pain Scale: 0-10 Numeric Is Patient Pain Free? Yes Yes WC - Visit Discharge Discharge Condition Stable Stable Ambulatory Status Ambulatory, Ambulatory, Walker Walker Transportation Private Auto Private Auto Accompanied by 2 DAUGHTERS Medication Reconcilliation completed & provided to patient/care provider Clinical Summary of Care Provided Additional Wound Wound debrided: left posterior LE Laterality: Left Type of Debridement: Excisional debridement Anesthesia Used: 4% Lidocaine Solution, 5% Lidocaine Gel and Cetacaine Depth: Down to and including healthy tissue and in the subcutaneous layer Percentage of wound debrided: 100 Instrument Used: 5mm curette Tissue Removed: Yellow slough, devitalized tissue Severity: Fat Layer Exposed Amount of bleeding with debridement: Mild Bleeding Controlled with: Compression and gauze Patient tolerated procedure: Patient tolerated procedure well Assessment/Plan Assessment/Plan (1) Venous stasis ulcer of left lower leg with edema of left lower leg: CODE(S): I83.029 - Varicose veins of left lower extremity with ulcer of unspecified site; I83.892 - Varicose veins of left lower extremity with other complications; L97.929 - Non-pressure chronic ulcer of unspecified part of left lower leg with unspecified severity; R60.9 - Edema, unspecified (2) Diabetes mellitus: CODE(S): E11.9 - Type 2 diabetes mellitus without complications QUALIFIERS: Diabetes mellitus type: type 2 Diabetes mellitus nursing home insulin use: without nursing home use Diabetes mellitus complication status: with neurologic complications Diabetes mellitus complication detail: with polyneuropathy Qualified Code(s): E11.42 - Type 2 diabetes mellitus with diabetic polyneuropathy (3) Chronic obstructive pulmonary disease: CODE(S): J44.9 - Chronic obstructive pulmonary disease, unspecified QUALIFIERS: COPD type: unspecified COPD Qualified Code(s): J44.9 - Chronic obstructive pulmonary disease, unspecified (4) Hypertension: CODE(S): I10 - Essential (primary) hypertension QUALIFIERS: Hypertension type: primary hypertension Qualified Code(s): I10 - Essential (primary) hypertension (5) 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: CODE(S): I83.019 - Varicose veins of right lower extremity with ulcer of unspecified site; L97.919 - Non-pressure chronic ulcer of unspecified part of right lower leg with unspecified severity (6) Nonhealing ulcer of left lower extremity with fat layer exposed: CODE(S): L97.922 - Non-pressure chronic ulcer of unspecified part of left lower leg with fat layer exposed (7) Nonhealing ulcer of right lower extremity with fat layer exposed: CODE(S): L97.912 - Non-pressure chronic ulcer of unspecified part of right lower leg with fat layer exposed (8) Supplemental oxygen dependent: CODE(S): Z99.81 - Dependence on supplemental oxygen PLAN: Plan Debridement performed today in clinic as annotated above. At home wound-care instructions: Epifix #4 applied to her right posterior LE ulcer today per solar sales representative and assessor guidelines using 100% of product, rehydrated with hydrogel and covered with adaptic touch and secured with steristrips. She will not change the dressing on this for 1 week unless there is drainage and then would change silicone foam dressing. Will have her continue Santyl and adaptic to left ulcer daily. She will cover with silicone bordered foam dressing. Keep dressing clean and dry. Off-loading: The patient was instructed to avoid pressure and friction on the affected areas. Reposition every 2 hours at minimum. Avoid prolonged standing and/or dangling of legs. When seated, feet should be elevated at chest level. Frequent ambulation is encouraged. Diet: Patient encouraged to increase protein intake while taking caution to avoid high carbohydrate and/or sugar intake. Labs/cultures/imaging: Vascular testing ordered to evaluate for arterial and venous disease showed incompetence of accessory saphenous veins b/l and normal arterial studies except decreased at level of great toe. Follow-up: Return in 1 week for wound care follow up. Return sooner or report to the emergency room should symptoms worsen, or new symptoms arise. Note: [employer] speech recognition satellite television installer software was used to create portions of this document. Sound-alike and misspelled words, as well as other satellite television installer errors may be contained in the documentation.
== END 2022-09-05 23:59 | disposition home or self-care (01) ==
LOC: WC 09:00
PROVIDERS: PCP Family Medicine; Referring Provider Family Medicine; Visit Provider Family Medicine
DX: I83.028 Varicose veins of left lower extremity with ulcer other part of lower leg (principal); E11.51 Type 2 diabetes mellitus with diabetic peripheral angiopathy without gangrene; L97.822 Non-pressure chronic ulcer of other part of left lower leg with fat layer exposed; L97.812 Non-pressure chronic ulcer of other part of right lower leg with fat layer exposed; I83.018 Varicose veins of right lower extremity with ulcer other part of lower leg; J44.9 Chronic obstructive pulmonary disease, unspecified; I11.0 Hypertensive heart disease with heart failure; I50.9 Heart failure, unspecified; E11.42 Type 2 diabetes mellitus with diabetic polyneuropathy; K21.9 Gastro-esophageal reflux disease without esophagitis; Z99.81 Dependence on supplemental oxygen; Z79.82 Long term (current) use of aspirin; Z79.1 Long term (current) use of non-steroidal anti-inflammatories (NSAID); Z79.899 Other long term (current) drug therapy; M17.0 Bilateral primary osteoarthritis of knee
CPT/HCPCS: 11042; 11045; 15271; 93923; 93970; Q4186

== ENCOUNTER 2022-10-03 08:30 | Outpatient (RCR) | payer MEDICARE, SELFPAY ==
[2022-09-06 01:59] VITALS: BP 143/69; PULSE 57; RESP 20; TEMP 36.2; BMI 34.7
[2022-09-12 08:27] VITALS: BP 124/65; PULSE 58; RESP 18; TEMP 36.1; BMI 34.7
--- NOTE | 2022-09-12 14:06 | PN.PCM_ITS ---
History of Present Illness Date of Service: 09/12/22 Chief Complaint: Venous leg ulcer left lower extremity and right lower extremity History of Wound: This is a 76-year-old white female who presents to the wound healing center today with complaint of nonhealing ulceration of her right and left lower extremities. She has a past medical history significant for chronic hypoxia on supplemental O2, COPD, type 2 diabetes mellitus, CHF, and osteoarthritis of the bilateral knees and GERD. The patient states that her wounds initially occurred after scratching the back of her leg on something almost a month ago. She saw her PCP last week and was started on Cephalexin QID x 10 days. She was 2 days left of treatment. She has not had any improvement in her pain or ulcers since starting the antibiotic. She has been applying triple antibiotic ointment covering with gauze for the last few days but had been using hydrogel and nonadherent dressings prior to that. She states that she has not been utilizing any compression due to pain but has been elevating her legs more frequently and using a wedge pillow. She denies any systemic or localized signs of infection at this time. Denies any prior cultures being taken. 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 Subjective Subjective Kandi tolerated Epifix treatment well. She is healed today. Denies fever, chil ls, increased drainage, increased pain or increased erythema. Objective Data Objective Data Vital Signs: Vital Signs Temp Pulse Resp BP O2 Del Method O2 Flow Rate 97 F L 58 L 18 124/65 H Room Air 2 09/12/22 08:27 09/12/22 08:27 09/12/22 08:27 09/12/22 08:27 09/12/22 08:27 09/06/22 01:59 Oxygen Flow Rate (L/min) 2 Oxygen Delivery Method Room Air Weight: 91.777 kg Body Mass Index (BMI) 34.7 Physical Exam Const alert, oriented x3 and no apparent distress General Appearance: cooperative and comfortable HEENT normocephalic and head/scalp atraumatic Resp normal respiratory effort Effort and Inspection: able to speak in complete sentences Cardio regular rate and regular rhythm Skin Wounds: wounds noted Wound Narrative: as in clinical panel Psych mental status grossly normal, thought process normal, cooperative and affect normal Debridement Note Debridement Note Wound debrided: right posterior LE Laterality: Right Type of Debridement: Excisional debridement Anesthesia Used: 4% Lidocaine Solution, 5% Lidocaine Gel and Cetacaine Depth: Down to and including healthy tissue and in the subcutaneous layer Percentage of wound debrided: 100 Instrument Used: 5mm curette Tissue Removed: Yellow slough, devitalized tissue Severity: Fat Layer Exposed Amount of bleeding with debridement: Mild Bleeding Controlled with: Compression and gauze Patient tolerated procedure: Patient tolerated procedure well Post-Debridement Measurements and Additional Note: Post-Debridement Measurements/Treatment - Nurse 1 - General Ulcer Assessment Start: 09/12/22 08:26 Freq: Status: Active Protocol: CHING Activity Type Activity Date Activity User E-sign Co-sign Detail Recorded Client Recorded Date Recorded By Document 09/12/22 08:27 PR [id number] 09/12/22 08:41 PR 09/12/22 08:27 WC - Today's Visit Information Type of service Follow-up Visit (Physician/CHEMICAL PROCESS OPERATOR ) Arrival Mode Ambulatory, Wheelchair Accompanied by daughter Patient Identification Verified (Name & No ) Safety Precautions Fall Prevention Height and Weight Body Mass Index (BMI) 34.7 BMI Classification Obese Vital Signs Temperature (97.8 F-99.1 F) 97 F L Temperature Source Temporal Pulse Rate (60-100) 58 L Pulse Location Monitor Respiratory Rate (12-18) 18 Respiratory rate source Observation Oxygen Delivery Method Room Air Blood Pressure (90/60-120/80) 124/65 H Blood Pressure Mean (mm Hg) 84 Source Monitor Position Sitting Blood Pressure Location Right Arm History Since Last Visit- (Skip if this is Patient's initial visit) Has dressing in place as prescribed Yes Has compression in place as prescribed N/A Has offloadiing in place as prescribed N/A Experienced any changes in pain level or No management Left Footwear Regular Shoe Right Footwear Regular Shoe Pain Scale: 0-10 Numeric Is Patient Pain Free? Yes [facility] Nurse 1 - General Ulcer Measurement Start: 09/12/22 08:26 Freq: Status: Active Protocol: Activity Type Activity Date Activity User E-sign Co-sign Detail Recorded Client Recorded Date Recorded By Document 09/12/22 08:27 PR [id number] 09/12/22 08:41 PR 09/12/22 08:27 Wound Center Nurse 1 #3 L POST LE -Current Size (cm) - Length 2.4 -Current Size (cm) - Width 0.6 -Current Size (cm) - Depth 0.1 -Total Square Cm 1.44 #2 R POST LE -Current Size (cm) - Length 2.8 -Current Size (cm) - Width 4.0 -Current Size (cm) - Depth 0.1 -Total Square Cm 11.20 -Exudate Amt None Present -Wound Margin Flat & Intact -Necrosis Amt Large (67-100%) -Necrotic Tissue Type Adherent Slough -Texture (Leticia-wound Skin Appearance) Assessed -Moisture (Leticia-wound Skin Appearance) Assessed -Color (Leticia-wound Skin Appearance) Assessed -Temperature (Leticia-wound Skin No Abnormality Appearance) (Pt Warm) -Tenderness on Palpation (Leticia-wound No Skin Appearance) -Ulcer Cleansing Rinsed/ Irrigated with Saline -Foul Odor after Cleansing No -Anesthetic Used 4% Lidocaine Solution Right Calf (cm) 39.6 Right Ankle (cm) 23 Left Calf (cm) 38.6 Left Ankle (cm) 22.7 WC - Nurse 2 - General Ulcer CM Notes Start: 09/12/22 08:26 Freq: Status: Active Protocol: Activity Type Activity Date Activity User E-sign Co-sign Detail Recorded Client Recorded Date Recorded By Document 09/12/22 08:45 MW Desktop 09/12/22 09:19 MW 09/12/22 08:45 Wound Center Nurse 2 #3 L POST LE -Time 08:45 -Correct Patient Yes -Correct Side, Site, Position Yes -Correct Procedure Yes -Procedure Performed Yes -Type of Procedure Debridement -Clinical Debridement Subcutaneous -Tissue Removed Subcutaneous -Post Debridement (cm) - Length 0.2 -Post Debridement (cm) - Width 0.2 -Post Debridement (cm) - Depth 0.1 -Total Square (Post) (cm) 0.04 -Area of Debridement (cm) - Length 0.2 -Area of Debridement (cm) - Width 0.2 -Total Square (Area) (cm) 0.04 -Tunneling No -Undermining/Tunneling No -Circular Undermining No -Wound/Ulcer Outcome Not Healed -Ulcer Cleansing Rinsed/ Irrigated with Saline -Foul Odor after Cleansing No -Bioengineered Tissue No -Bleeding Controlled with Pressure -Treatment Response Procedure Tolerated Well -Offloading No -Debridement - Subq, 1st 20sq cm Yes #2 R POST LE -Time 08:45 -Correct Patient Yes -Correct Side, Site, Position Yes -Correct Procedure Yes -Procedure Performed Yes -Type of Procedure Debridement -Clinical Debridement Subcutaneous -Tissue Removed Subcutaneous -Post Debridement (cm) - Length 2.4 -Post Debridement (cm) - Width 4.0 -Post Debridement (cm) - Depth 0.1 -Total Square (Post) (cm) 9.60 -Area of Debridement (cm) - Length 2.4 -Area of Debridement (cm) - Width 4.0 -Total Square (Area) (cm) 9.60 -Tunneling No -Undermining/Tunneling No -Circular Undermining No -Wound/Ulcer Outcome Not Healed -Ulcer Cleansing Rinsed/ Irrigated with Saline -Foul Odor after Cleansing No -Bioengineered Tissue Yes -Type of Bioengineered Tissue Epifix Mesh -Expiration Date 05/08/27 -Product Lot Number [id number] -Percent Used 100 -Lot number of Saline Used [id number] -Bleeding Controlled with Pressure -Treatment Response Procedure Tolerated Well -Offloading No -Debridement - Subq, 1st 20sq cm No -Apply Skin Sub - 1st 25 sq cm - Legs 1 -Epifix Mesh (per sq cm) 11 Pain Scale: 0-10 Numeric Is Patient Pain Free? Yes WC - Nurse 3 - General Ulcer D/C NN Start: 09/12/22 08:26 Freq: Status: Active Protocol: Activity Type Activity Date Activity User E-sign Co-sign Detail Recorded Client Recorded Date Recorded By Document 09/12/22 09:20 MW Desktop 09/12/22 09:24 MW 09/12/22 09:20 Wound Care Center Nurse 3 #3 L POST LE -Ulcer Cleansing Rinsed/ Irrigated with Saline -Foul Odor after Cleansing No -Negative Pressure Wound Therapy N/A -Primary Dressing Applied Mepilex Border -Other Dressing C.HYDROGEL -Mepilex Border 1 #2 R POST LE -Ulcer Cleansing Not Cleansed -Foul Odor after Cleansing No -Negative Pressure Wound Therapy N/A -Primary Dressing Covered/Secured with Dry Gauze & Roll Gauze, Secured with Tape -Other Covering ABD PAD Right -Lotion applied to leg before No compression wrap -Stockings Yes Left -Lotion applied to leg before No compression wrap -Stockings Yes Treatment Response Procedure Tolerated Well Pain Scale: 0-10 Numeric Is Patient Pain Free? Yes Teaching: Wound Center Dressing Your Wound -Person Taught Patient -Teaching Method Discussion -Response to teaching Verbalize understanding WC - Visit Discharge Discharge Condition Stable Ambulatory Status Ambulatory, Walker Transportation Private Auto Accompanied by DAUGHTER Medication Reconcilliation completed & No provided to patient/care provider Clinical Summary of Care Provided Yes Additional Wound Wound debrided: left posterior LE Laterality: Left Type of Debridement: Excisional debridement Anesthesia Used: 4% Lidocaine Solution, 5% Lidocaine Gel and Cetacaine Depth: Down to and including healthy tissue and in the subcutaneous layer Percentage of wound debrided: 100 Instrument Used: 5mm curette Tissue Removed: Yellow slough, devitalized tissue Severity: Fat Layer Exposed Amount of bleeding with debridement: Mild Bleeding Controlled with: Compression and gauze Patient tolerated procedure: Patient tolerated procedure well Assessment/Plan Assessment/Plan (1) Venous stasis ulcer of left lower leg with edema of left lower leg: CODE(S): I83.029 - Varicose veins of left lower extremity with ulcer of unspecified site; I83.892 - Varicose veins of left lower extremity with other complications; L97.929 - Non-pressure chronic ulcer of unspecified part of left lower leg with unspecified severity; R60.9 - Edema, unspecified (2) Diabetes mellitus: CODE(S): E11.9 - Type 2 diabetes mellitus without complications QUALIFIERS: Diabetes mellitus type: type 2 Diabetes mellitus terminal operations manager insulin use: without terminal operations manager use Diabetes mellitus complication status: with neurologic complications Diabetes mellitus complication detail: with polyneuropathy Qualified Code(s): E11.42 - Type 2 diabetes mellitus with diabetic polyneuropathy (3) Chronic obstructive pulmonary disease: CODE(S): J44.9 - Chronic obstructive pulmonary disease, unspecified QUALIFIERS: COPD type: unspecified COPD Qualified Code(s): J44.9 - Chronic obstructive pulmonary disease, unspecified (4) Hypertension: CODE(S): I10 - Essential (primary) hypertension QUALIFIERS: Hypertension type: primary hypertension Qualified Code(s): I10 - Essential (primary) hypertension (5) 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: CODE(S): I83.019 - Varicose veins of right lower extremity with ulcer of unspecified site; L97.919 - Non-pressure chronic ulcer of unspecified part of right lower leg with unspecified severity (6) Nonhealing ulcer of left lower extremity with fat layer exposed: CODE(S): L97.922 - Non-pressure chronic ulcer of unspecified part of left lower leg with fat layer exposed (7) Nonhealing ulcer of right lower extremity with fat layer exposed: CODE(S): L97.912 - Non-pressure chronic ulcer of unspecified part of right lower leg with fat layer exposed (8) Supplemental oxygen dependent: CODE(S): Z99.81 - Dependence on supplemental oxygen PLAN: Plan Debridement performed today in clinic as annotated above. At home wound-care instructions: Epifix #5 applied to her right posterior LE ulcer today per radio broadcaster guidelines using 100% of product, rehydrated with hydrogel and covered with adaptic touch and secured with steristrips. She will not change the dressing on this for 1 week unless there is drainage and then would change silicone foam dressing. Will have her apply hydrogel and adaptic to left ulcer daily. She will cover with silicone bordered foam dressing. Keep dressing clean and dry. Off-loading: The patient was instructed to avoid pressure and friction on the affected areas. Reposition every 2 hours at minimum. Avoid prolonged standing and/or dangling of legs. When seated, feet should be elevated at chest level. Frequent ambulation is encouraged. Diet: Patient encouraged to increase protein intake while taking caution to avoid high carbohydrate and/or sugar intake. Labs/cultures/imaging: Vascular testing ordered to evaluate for arterial and venous disease showed incompetence of accessory saphenous veins b/l and normal arterial studies except decreased at level of great toe. Follow-up: Return in 1 week for wound care follow up. Return sooner or report to the emergency room should symptoms worsen, or new symptoms arise. Note: [employer] speech recognition computer numerical control grinder software was used to create portions of this document. Sound-alike and misspelled words, as well as other computer numerical control grinder errors may be contained in the documentation.
[2022-09-19 08:28] VITALS: BP 148/97; PULSE 96; RESP 18; TEMP 36.6; BMI 34.7
--- NOTE | 2022-09-19 14:36 | PN.PCM_ITS ---
History of Present Illness Date of Service: 09/19/22 Chief Complaint: Venous leg ulcer left lower extremity and right lower extremity History of Wound: This is a 76-year-old white female who presents to the wound healing center today with complaint of nonhealing ulceration of her right and left lower extremities. She has a past medical history significant for chronic hypoxia on supplemental O2, COPD, type 2 diabetes mellitus, CHF, and osteoarthritis of the bilateral knees and GERD. The patient states that her wounds initially occurred after scratching the back of her leg on something almost a month ago. She saw her PCP last week and was started on Cephalexin QID x 10 days. She was 2 days left of treatment. She has not had any improvement in her pain or ulcers since starting the antibiotic. She has been applying triple antibiotic ointment covering with gauze for the last few days but had been using hydrogel and nonadherent dressings prior to that. She states that she has not been utilizing any compression due to pain but has been elevating her legs more frequently and using a wedge pillow. She denies any systemic or localized signs of infection at this time. Denies any prior cultures being taken. 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 Subjective Subjective Kandi tolerated Epifix treatment well. She is healed today on her right . Denies fever, chills, increased drainage, increased pain or increased erythema. Objective Data Objective Data Vital Signs: Vital Signs Temp Pulse Resp BP O2 Del Method O2 Flow Rate 97.8 F 96 18 148/97 H Room Air 2 09/19/22 08:28 09/19/22 08:28 09/19/22 08:28 09/19/22 08:28 09/12/22 08:27 09/06/22 01:59 Oxygen Flow Rate (L/min) 2 Oxygen Delivery Method Room Air Weight: 91.777 kg Body Mass Index (BMI) 34.7 Physical Exam Const alert, oriented x3 and no apparent distress General Appearance: cooperative and comfortable HEENT normocephalic and head/scalp atraumatic Resp normal respiratory effort Effort and Inspection: able to speak in complete sentences Cardio regular rate and regular rhythm Skin Wounds: wounds noted Wound Narrative: as in clinical panel Psych mental status grossly normal, thought process normal, cooperative and affect normal Debridement Note Debridement Note Wound debrided: right posterior LE Laterality: Right Type of Debridement: Excisional debridement Anesthesia Used: 4% Lidocaine Solution, 5% Lidocaine Gel and Cetacaine Depth: Down to and including healthy tissue and in the subcutaneous layer Percentage of wound debrided: 100 Instrument Used: 5mm curette Tissue Removed: Yellow slough, devitalized tissue Severity: Fat Layer Exposed Amount of bleeding with debridement: Mild Bleeding Controlled with: Compression and gauze Patient tolerated procedure: Patient tolerated procedure well Post-Debridement Measurements and Additional Note: Post-Debridement Measurements/Treatment - Nurse 1 - General Ulcer Assessment Start: 09/12/22 08:26 Freq: Status: Active Protocol: Exchange GroupARICT Activity Type Activity Date Activity User E-sign Co-sign Detail Recorded Client Recorded Date Recorded By Document 09/12/22 08:27 MT [id number] 09/12/22 08:41 MT Document 09/19/22 08:28 RB [id number] 09/19/22 08:35 RB 09/12/22 09/19/22 08:27 08:28 - Today's Visit Information Type of service Follow-up Visit Follow-up Visit (Physician/PIZZA BAKER (Physician/PIZZA BAKER ) ) Arrival Mode Ambulatory, Ambulatory Wheelchair Transfer Assistance None Accompanied by daughter Patient Identification Verified (Name & No Yes ) Patient Requires Transmission-Based No Precautions Safety Precautions Fall Prevention Height and Weight Body Mass Index (BMI) 34.7 34.7 BMI Classification Obese Obese Vital Signs Temperature (97.8 F-99.1 F) 97 F L 97.8 F Temperature Source Temporal Temporal Pulse Rate (60-100) 58 L 96 Pulse Location Monitor Monitor Respiratory Rate (12-18) 18 18 Respiratory rate source Observation Observation Oxygen Delivery Method Room Air Blood Pressure (90/60-120/80) 124/65 H 148/97 H Blood Pressure Mean (mm Hg) 84 114 Source Monitor Monitor Position Sitting Semi-Fowlers Blood Pressure Location Right Arm Left Arm History Since Last Visit- (Skip if this is Patient's initial visit) Have you changed medications since your No last visit? Any new allergies or adverse reactions No Had a fall/change in ADL's that may No increase risk of falls Signs or symptoms of abuse and/or No neglect since last visit Have you been in the hospital since your No last visit? Has dressing in place as prescribed Yes Yes Has compression in place as prescribed N/A Yes Has offloadiing in place as prescribed N/A No Experienced any changes in pain level or No No management Left Footwear Regular Shoe Right Footwear Regular Shoe Pain Scale: 0-10 Numeric Is Patient Pain Free? Yes Yes WC - Nurse 1 - General Ulcer Measurement Start: 09/12/22 08:26 Freq: Status: Active Protocol: Activity Type Activity Date Activity User E-sign Co-sign Detail Recorded Client Recorded Date Recorded By Document 09/12/22 08:27 MT [id number] 09/12/22 08:41 MT Document 09/19/22 08:28 RB [id number] 09/19/22 08:35 RB 09/12/22 09/19/22 08:27 08:28 Wound Center Nurse 1 #3 L POST LE -Combined with other wound No -Current Size (cm) - Length 2.4 0.1 -Current Size (cm) - Width 0.6 0.1 -Current Size (cm) - Depth 0.1 0.1 -Total Square Cm 1.44 0.01 -Photo Taken Yes -Tunneling No -Undermining/Tunneling No -Circular Undermining No -Exudate Amt Small -Exudate Type Serosanguineous -Wound Margin Distinct, Outline Attached -Granulation Amt Medium (34-66%) -Granulation Quality [place] -Slough/Fibrin Yes -Necrosis Amt Medium (34-66%) -Necrotic Tissue Type Adherent Slough -Structure Exposed N/A -Texture (Leticia-wound Skin Appearance) Assessed, Scarring -Moisture (Leticia-wound Skin Appearance) Assessed -Color (Leticia-wound Skin Appearance) Assessed -Temperature (Leticia-wound Skin No Abnormality Appearance) (Pt Warm) -Tenderness on Palpation (Leticia-wound No Skin Appearance) -Ulcer Cleansing Wound Cleanser -Foul Odor after Cleansing No -Anesthetic Used 5% Lidocaine Gel #2 R POST LE -Combined with other wound No -Current Size (cm) - Length 2.8 2.2 -Current Size (cm) - Width 4.0 3.9 -Current Size (cm) - Depth 0.1 0.2 -Total Square Cm 11.20 8.58 -Photo Taken Yes -Tunneling No -Undermining/Tunneling No -Circular Undermining No -Exudate Amt None Present Large -Exudate Type Serosanguineous -Wound Margin Flat & Intact Distinct, Outline Attached -Granulation Amt Medium (34-66%) -Granulation Quality [place] -Slough/Fibrin Yes -Necrosis Amt Large (67-100%) Medium (34-66%) -Necrotic Tissue Type Adherent Slough Adherent Slough -Structure Exposed N/A -Texture (Leticia-wound Skin Appearance) Assessed Assessed, Scarring -Moisture (Leticia-wound Skin Appearance) Assessed Assessed -Color (Leticia-wound Skin Appearance) Assessed Assessed -Temperature (Leticia-wound Skin No Abnormality No Abnormality Appearance) (Pt Warm) (Pt Warm) -Tenderness on Palpation (Leticia-wound No No Skin Appearance) -Ulcer Cleansing Rinsed/ Wound Cleanser Irrigated with Saline -Foul Odor after Cleansing No Yes, Due to Product Use -Anesthetic Used 4% Lidocaine 5% Lidocaine Solution Gel Lower Limb Edema Present Yes Right Calf (cm) 39.6 38 Right Ankle (cm) 23 22.4 Left Calf (cm) 38.6 40 Left Ankle (cm) 22.7 22.8 WC - Nurse 2 - General Ulcer CM Notes Start: 09/12/22 08:26 Freq: Status: Active Protocol: Activity Type Activity Date Activity User E-sign Co-sign Detail Recorded Client Recorded Date Recorded By Document 09/12/22 08:45 MW Desktop 09/12/22 09:19 MW Document 09/19/22 09:18 MW [id number] 09/19/22 09:33 MW 09/12/22 09/19/22 08:45 09:18 Wound Center Nurse 2 #3 L POST LE -Time 08:45 09:18 -Correct Patient Yes Yes -Correct Side, Site, Position Yes Yes -Correct Procedure Yes Yes -Procedure Performed Yes No -Type of Procedure Debridement -Clinical Debridement Subcutaneous -Tissue Removed Subcutaneous -Post Debridement (cm) - Length 0.2 -Post Debridement (cm) - Width 0.2 -Post Debridement (cm) - Depth 0.1 -Total Square (Post) (cm) 0.04 -Area of Debridement (cm) - Length 0.2 -Area of Debridement (cm) - Width 0.2 -Total Square (Area) (cm) 0.04 -Tunneling No No -Undermining/Tunneling No No -Circular Undermining No No -Wound/Ulcer Outcome Not Healed Healed- Epithelialized -Ulcer Cleansing Rinsed/ Irrigated with Saline -Foul Odor after Cleansing No -Bioengineered Tissue No -Bleeding Controlled with Pressure -Treatment Response Procedure Tolerated Well -Offloading No -Debridement - Subq, 1st 20sq cm Yes #2 R POST LE -Time 08:45 09:19 -Correct Patient Yes Yes -Correct Side, Site, Position Yes Yes -Correct Procedure Yes Yes -Procedure Performed Yes Yes -Type of Procedure Debridement Debridement -Clinical Debridement Subcutaneous Subcutaneous -Tissue Removed Subcutaneous Subcutaneous -Post Debridement (cm) - Length 2.4 2.5 -Post Debridement (cm) - Width 4.0 4.0 -Post Debridement (cm) - Depth 0.1 1 -Total Square (Post) (cm) 9.60 10.00 -Area of Debridement (cm) - Length 2.4 2.5 -Area of Debridement (cm) - Width 4.0 4.0 -Total Square (Area) (cm) 9.60 10.00 -Tunneling No No -Undermining/Tunneling No No -Circular Undermining No No -Wound/Ulcer Outcome Not Healed Not Healed -Ulcer Cleansing Rinsed/ Rinsed/ Irrigated with Irrigated with Saline Saline -Foul Odor after Cleansing No No -Bioengineered Tissue Yes Yes -Type of Bioengineered Tissue Epifix Mesh Epifix Mesh -Expiration Date 05/08/27 05/08/27 -Product Lot Number [id number] -Percent Used 100 100 -Lot number of Saline Used [id number] -Bleeding Controlled with Pressure Pressure -Treatment Response Procedure Procedure Tolerated Well Tolerated Well -Offloading No No -Debridement - Subq, 1st 20sq cm No No -Apply Skin Sub - 1st 25 sq cm - Legs 1 1 -Epifix Mesh (per sq cm) 11 11 Pain Scale: 0-10 Numeric Is Patient Pain Free? Yes Yes WC - Nurse 3 - General Ulcer D/C NN Start: 09/12/22 08:26 Freq: Status: Active Protocol: Activity Type Activity Date Activity User E-sign Co-sign Detail Recorded Client Recorded Date Recorded By Document 09/12/22 09:20 MW Desktop 09/12/22 09:24 MW Document 09/19/22 09:39 RB [id number] 09/19/22 09:40 RB 09/12/22 09/19/22 09:20 09:39 Wound Care Center Nurse 3 #3 L POST LE -Ulcer Cleansing Rinsed/ Irrigated with Saline -Foul Odor after Cleansing No -Negative Pressure Wound Therapy N/A -Primary Dressing Applied Mepilex Border -Other Dressing C.HYDROGEL -Mepilex Border 1 #2 R POST LE -Ulcer Cleansing Not Cleansed -Foul Odor after Cleansing No -Negative Pressure Wound Therapy N/A -Other Dressing abd -Primary Dressing Covered/Secured with Dry Gauze & Dry Gauze,Dry Roll Gauze, Gauze & Roll Secured with Gauze,Secured Tape with Tape -Other Covering ABD PAD Right -Lotion applied to leg before No compression wrap -Stockings Yes -Other circaid Left -Lotion applied to leg before No compression wrap -Stockings Yes -Other circaid Treatment Response Procedure Procedure Tolerated Well Tolerated Well Pain Scale: 0-10 Numeric Is Patient Pain Free? Yes Yes Teaching: Wound Center Dressing Your Wound -Person Taught Patient -Teaching Method Discussion -Response to teaching Verbalize understanding WC - Visit Discharge Discharge Condition Stable Stable Ambulatory Status Ambulatory, Ambulatory, Walker Walker Transportation Private Auto Private Auto Accompanied by DAUGHTER Medication Reconcilliation completed & No No provided to patient/care provider Clinical Summary of Care Provided Yes Yes Additional Wound Wound debrided: left posterior LE Type of Debridement: Excisional debridement Anesthesia Used: 4% Lidocaine Solution, 5% Lidocaine Gel and Cetacaine Depth: Down to and including healthy tissue and in the subcutaneous layer Percentage of wound debrided: 100 Instrument Used: 5mm curette Tissue Removed: Yellow slough, devitalized tissue Severity: Fat Layer Exposed Amount of bleeding with debridement: Mild Bleeding Controlled with: Compression and gauze Patient tolerated procedure: Patient tolerated procedure well Assessment/Plan Assessment/Plan (1) Venous stasis ulcer of left lower leg with edema of left lower leg: CODE(S): I83.029 - Varicose veins of left lower extremity with ulcer of unspecified site; I83.892 - Varicose veins of left lower extremity with other complications; L97.929 - Non-pressure chronic ulcer of unspecified part of left lower leg with unspecified severity; R60.9 - Edema, unspecified (2) Diabetes mellitus: CODE(S): E11.9 - Type 2 diabetes mellitus without complications QUALIFIERS: Diabetes mellitus type: type 2 Diabetes mellitus terminal superintendent insulin use: without terminal superintendent use Diabetes mellitus complication status: with neurologic complications Diabetes mellitus complication detail: with polyneuropathy Qualified Code(s): 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 (3) Chronic obstructive pulmonary disease: CODE(S): J44.9 - Chronic obstructive pulmonary disease, unspecified QUALIFIERS: COPD type: unspecified COPD Qualified Code(s): J44.9 - Chronic obstructive pulmonary disease, unspecified (4) Hypertension: CODE(S): I10 - Essential (primary) hypertension QUALIFIERS: Hypertension type: primary hypertension Qualified Code(s): I10 - Essential (primary) hypertension (5) 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: CODE(S): I83.019 - Varicose veins of right lower extremity with ulcer of unspecified site; L97.919 - Non-pressure chronic ulcer of unspecified part of right lower leg with unspecified severity (6) Nonhealing ulcer of left lower extremity with fat layer exposed: CODE(S): L97.922 - Non-pressure chronic ulcer of unspecified part of left lower leg with fat layer exposed (7) Nonhealing ulcer of right lower extremity with fat layer exposed: CODE(S): L97.912 - Non-pressure chronic ulcer of unspecified part of right lower leg with fat layer exposed (8) Supplemental oxygen dependent: CODE(S): Z99.81 - Dependence on supplemental oxygen PLAN: Plan Debridement performed today in clinic as annotated above. At home wound-care instructions: Epifix #6 applied to her right posterior LE u lcer today per plc engineer guidelines using 100% of product, rehydrated with hydrogel and covered with adaptic touch and secured with steristrips. She will not change the dressing on this for 1 week unless there is drainage and then would change gauze dressing. Reapply hydrogel Thu and Weds. Off-loading: The patient was instructed to avoid pressure and friction on the affected areas. Reposition every 2 hours at minimum. Avoid prolonged standing and/or dangling of legs. When seated, feet should be elevated at chest level. Frequent ambulation is encouraged. Diet: Patient encouraged to increase protein intake while taking caution to avoid high carbohydrate and/or sugar intake. Labs/cultures/imaging: Vascular testing ordered to evaluate for arterial and venous disease showed incompetence of accessory saphenous veins b/l and normal arterial studies except decreased at level of great toe. Follow-up: Return in 1 week for wound care follow up. Return sooner or report to the emergency room should symptoms worsen, or new symptoms arise. Note: [employer] speech recognition hydrology professor software was used to create portions of this document. Sound-alike and misspelled words, as well as other hydrology professor errors may be contained in the documentation.
[2022-09-26 08:51] VITALS: BP 150/70; PULSE 72; RESP 20; TEMP 36.6; BMI 34.7
--- NOTE | 2022-09-26 09:43 | PN.PCM_ITS ---
History of Present Illness Date of Service: 09/26/22 Chief Complaint: Venous leg ulcer left lower extremity and right lower extremity History of Wound: This is a 76-year-old white female who presents to the wound healing center today with complaint of nonhealing ulceration of her right and left lower extremities. She has a past medical history significant for chronic hypoxia on supplemental O2, COPD, type 2 diabetes mellitus, CHF, and osteoarthritis of the bilateral knees and GERD. The patient states that her wounds initially occurred after scratching the back of her leg on something almost a month ago. She saw her PCP last week and was started on Cephalexin QID x 10 days. She was 2 days left of treatment. She has not had any improvement in her pain or ulcers since starting the antibiotic. She has been applying triple antibiotic ointment covering with gauze for the last few days but had been using hydrogel and nonadherent dressings prior to that. She states that she has not been utilizing any compression due to pain but has been elevating her legs more frequently and using a wedge pillow. She denies any systemic or localized signs of infection at this time. Denies any prior cultures being taken. 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 Subjective Subjective Kandi tolerated Epifix treatment well. She remains healed today on her right c george. Denies fever, chills, increased drainage, increased pain or increased erythema. Objective Data Objective Data Vital Signs: Vital Signs Temp Pulse Resp BP O2 Del Method O2 Flow Rate 97.8 F 72 20 H 150/70 H Room Air 2 09/26/22 08:51 09/26/22 08:51 09/26/22 08:51 09/26/22 08:51 09/12/22 08:27 09/26/22 08:51 Oxygen Flow Rate (L/min) 2 Oxygen Delivery Method Room Air Weight: 91.777 kg Body Mass Index (BMI) 34.7 Physical Exam Const alert, oriented x3 and no apparent distress General Appearance: cooperative and comfortable HEENT normocephalic and head/scalp atraumatic Resp normal respiratory effort Effort and Inspection: able to speak in complete sentences Cardio regular rate and regular rhythm Skin Wounds: wounds noted Wound Narrative: as in clinical panel Psych mental status grossly normal, thought process normal, cooperative and affect normal Debridement Note Debridement Note Wound debrided: Left posterior LE Laterality: Left Type of Debridement: Excisional debridement Anesthesia Used: 4% Lidocaine Solution, 5% Lidocaine Gel and Cetacaine Depth: Down to and including healthy tissue and in the subcutaneous layer Percentage of wound debrided: 100 Instrument Used: 5mm curette Tissue Removed: Yellow slough, devitalized tissue Severity: Fat Layer Exposed Amount of bleeding with debridement: Mild Bleeding Controlled with: Compression and gauze Patient tolerated procedure: Patient tolerated procedure well Post-Debridement Measurements and Additional Note: Post-Debridement Measurements/Treatment - Nurse 1 - General Ulcer Assessment Start: 09/12/22 08:26 Freq: Status: Active Protocol: [id number] Activity Type Activity Date Activity User E-sign Co-sign Detail Recorded Client Recorded Date Recorded By Document 09/12/22 08:27 MT [id number] 09/12/22 08:41 MT Document 09/19/22 08:28 RB [id number] 09/19/22 08:35 RB Document 09/26/22 08:51 RB [id number] 09/26/22 08:53 RB Edit Result 09/26/22 08:51 RB (1) [id number] 09/26/22 08:55 RB (1) Respiratory Rate (12-18) 18 => 20 H O2 L/MIN (L/min) => 2 09/12/22 09/19/22 09/26/22 08:27 08:28 08:51 - Today's Visit Information Type of service Follow-up Visit Follow-up Visit Follow-up Visit (Physician/PRESS OPERATOR MEAT (Physician/PRESS OPERATOR MEAT (Physician/PRESS OPERATOR MEAT ) ) ) Arrival Mode Ambulatory, Ambulatory Ambulatory, Wheelchair Walker Transfer Assistance None None Accompanied by daughter Patient Identification Verified (Name & No Yes Yes ) Patient Requires Transmission-Based No No Precautions Safety Precautions Fall Prevention Height and Weight Body Mass Index (BMI) 34.7 34.7 34.7 BMI Classification Obese Obese Obese Vital Signs Temperature (97.8 F-99.1 F) 97 F L 97.8 F 97.8 F Temperature Source Temporal Temporal Temporal Pulse Rate (60-100) 58 L 96 72 Pulse Location Monitor Monitor Monitor Respiratory Rate (12-18) 18 18 20 H Respiratory rate source Observation Observation Observation Oxygen Delivery Method Room Air O2 L/MIN (L/min) 2 Blood Pressure (90/60-120/80) 124/65 H 148/97 H 150/70 H Blood Pressure Mean (mm Hg) 84 114 96 Source Monitor Monitor Monitor Position Sitting Semi-Fowlers Semi-Fowlers Blood Pressure Location Right Arm Left Arm Left Arm History Since Last Visit- (Skip if this is Patient's initial visit) Have you changed medications since your No No last visit? Any new allergies or adverse reactions No No Had a fall/change in ADL's that may No No increase risk of falls Signs or symptoms of abuse and/or No No neglect since last visit Have you been in the hospital since your No No last visit? Has dressing in place as prescribed Yes Yes Yes Has compression in place as prescribed N/A Yes Yes Has offloadiing in place as prescribed N/A No No Experienced any changes in pain level or No No No management Left Footwear Regular Shoe Right Footwear Regular Shoe Pain Scale: 0-10 Numeric Is Patient Pain Free? Yes Yes Yes WC - Nurse 1 - General Ulcer Measurement Start: 09/12/22 08:26 Freq: Status: Active Protocol: Activity Type Activity Date Activity User E-sign Co-sign Detail Recorded Client Recorded Date Recorded By Document 09/12/22 08:27 CT [id number] 09/12/22 08:41 CT Document 09/19/22 08:28 RB [id number] 09/19/22 08:35 RB Document 09/26/22 08:51 RB [id number] 09/26/22 08:53 RB 09/12/22 09/19/22 09/26/22 08:27 08:28 08:51 Wound Center Nurse 1 #3 L POST LE -Combined with other wound No -Current Size (cm) - Length 2.4 0.1 -Current Size (cm) - Width 0.6 0.1 -Current Size (cm) - Depth 0.1 0.1 -Total Square Cm 1.44 0.01 -Photo Taken Yes -Tunneling No -Undermining/Tunneling No -Circular Undermining No -Exudate Amt Small -Exudate Type Serosanguineous -Wound Margin Distinct, Outline Attached -Granulation Amt Medium (34-66%) -Granulation Quality [place] -Slough/Fibrin Yes -Necrosis Amt Medium (34-66%) -Necrotic Tissue Type Adherent Slough -Structure Exposed N/A -Texture (Leticia-wound Skin Appearance) Assessed, Scarring -Moisture (Leticia-wound Skin Appearance) Assessed -Color (Leticia-wound Skin Appearance) Assessed -Temperature (Leticia-wound Skin No Abnormality Appearance) (Pt Warm) -Tenderness on Palpation (Leticia-wound No Skin Appearance) -Ulcer Cleansing Wound Cleanser -Foul Odor after Cleansing No -Anesthetic Used 5% Lidocaine Gel #2 R POST LE -Combined with other wound No No -Current Size (cm) - Length 2.8 2.2 2.2 -Current Size (cm) - Width 4.0 3.9 3.5 -Current Size (cm) - Depth 0.1 0.2 0.1 -Total Square Cm 11.20 8.58 7.70 -Photo Taken Yes Yes -Tunneling No No -Undermining/Tunneling No No -Circular Undermining No No -Exudate Amt None Present Large Medium -Exudate Type Serosanguineous Serosanguineous -Wound Margin Flat & Intact Distinct, Distinct, Outline Outline Attached Attached -Granulation Amt Medium (34-66%) Medium (34-66%) -Granulation Quality [place] -Slough/Fibrin Yes Yes -Necrosis Amt Large (67-100%) Medium (34-66%) Medium (34-66%) -Necrotic Tissue Type Adherent Slough Adherent Slough Adherent Slough -Structure Exposed N/A N/A -Texture (Leticia-wound Skin Appearance) Assessed Assessed, Assessed, Scarring Scarring -Moisture (Leticia-wound Skin Appearance) Assessed Assessed Assessed -Color (Leticia-wound Skin Appearance) Assessed Assessed Assessed -Temperature (Leticia-wound Skin No Abnormality No Abnormality No Abnormality Appearance) (Pt Warm) (Pt Warm) (Pt Warm) -Tenderness on Palpation (Leticia-wound No No No Skin Appearance) -Ulcer Cleansing Rinsed/ Wound Cleanser Wound Cleanser Irrigated with Saline -Foul Odor after Cleansing No Yes, Due to No Product Use -Anesthetic Used 4% Lidocaine 5% Lidocaine 5% Lidocaine Solution Gel Gel Lower Limb Edema Present Yes Yes Right Calf (cm) 39.6 38 39.5 Right Ankle (cm) 23 22.4 22.7 Left Calf (cm) 38.6 40 40 Left Ankle (cm) 22.7 22.8 22.2 WC - Nurse 2 - General Ulcer CM Notes Start: 09/12/22 08:26 Freq: Status: Active Protocol: Activity Type Activity Date Activity User E-sign Co-sign Detail Recorded Client Recorded Date Recorded By Document 09/12/22 08:45 MW Desktop 09/12/22 09:19 MW Document 09/19/22 09:18 MW [id number] 09/19/22 09:33 MW Document 09/26/22 09:01 MW [id number] 09/26/22 09:17 MW 09/12/22 09/19/22 09/26/22 08:45 09:18 09:01 Wound Center Nurse 2 #3 L POST LE -Time 08:45 09:18 -Correct Patient Yes Yes -Correct Side, Site, Position Yes Yes -Correct Procedure Yes Yes -Procedure Performed Yes No -Type of Procedure Debridement -Clinical Debridement Subcutaneous -Tissue Removed Subcutaneous -Post Debridement (cm) - Length 0.2 -Post Debridement (cm) - Width 0.2 -Post Debridement (cm) - Depth 0.1 -Total Square (Post) (cm) 0.04 -Area of Debridement (cm) - Length 0.2 -Area of Debridement (cm) - Width 0.2 -Total Square (Area) (cm) 0.04 -Tunneling No No -Undermining/Tunneling No No -Circular Undermining No No -Wound/Ulcer Outcome Not Healed Healed- Epithelialized -Ulcer Cleansing Rinsed/ Irrigated with Saline -Foul Odor after Cleansing No -Bioengineered Tissue No -Bleeding Controlled with Pressure -Treatment Response Procedure Tolerated Well -Offloading No -Debridement - Subq, 1st 20sq cm Yes #2 R POST LE -Time 08:45 09:19 09:05 -Correct Patient Yes Yes Yes -Correct Side, Site, Position Yes Yes Yes -Correct Procedure Yes Yes Yes -Procedure Performed Yes Yes Yes -Type of Procedure Debridement Debridement Debridement -Clinical Debridement Subcutaneous Subcutaneous Subcutaneous -Tissue Removed Subcutaneous Subcutaneous Subcutaneous -Post Debridement (cm) - Length 2.4 2.5 2.3 -Post Debridement (cm) - Width 4.0 4.0 3.7 -Post Debridement (cm) - Depth 0.1 1 0.1 -Total Square (Post) (cm) 9.60 10.00 8.51 -Area of Debridement (cm) - Length 2.4 2.5 2.3 -Area of Debridement (cm) - Width 4.0 4.0 3.7 -Total Square (Area) (cm) 9.60 10.00 8.51 -Tunneling No No No -Undermining/Tunneling No No No -Circular Undermining No No No -Wound/Ulcer Outcome Not Healed Not Healed Not Healed -Ulcer Cleansing Rinsed/ Rinsed/ Rinsed/ Irrigated with Irrigated with Irrigated with Saline Saline Saline -Foul Odor after Cleansing No No No -Bioengineered Tissue Yes Yes Yes -Type of Bioengineered Tissue Epifix Mesh Epifix Mesh Epifix Mesh -Expiration Date 05/08/27 05/08/27 05/08/27 -Product Lot Number [id number] -Percent Used 100 100 100 -Lot number of Saline Used [id number] -Bleeding Controlled with Pressure Pressure Pressure -Treatment Response Procedure Procedure Procedure Tolerated Well Tolerated Well Tolerated Well -Offloading No No No -Debridement - Subq, 1st 20sq cm No No No -Apply Skin Sub - 1st 25 sq cm - Legs 1 1 1 -Epifix Mesh (per sq cm) 11 11 11 Pain Scale: 0-10 Numeric Is Patient Pain Free? Yes Yes Yes WC - Nurse 3 - General Ulcer D/C NN Start: 09/12/22 08:26 Freq: Status: Active Protocol: Activity Type Activity Date Activity User E-sign Co-sign Detail Recorded Client Recorded Date Recorded By Document 09/12/22 09:20 MW Desktop 09/12/22 09:24 MW Document 09/19/22 09:39 RB [id number] 09/19/22 09:40 RB Document 09/26/22 09:27 RB [id number] 09/26/22 09:28 RB 09/12/22 09/19/22 09/26/22 09:20 09:39 09:27 Wound Care Center Nurse 3 #3 L POST LE -Ulcer Cleansing Rinsed/ Irrigated with Saline -Foul Odor after Cleansing No -Negative Pressure Wound Therapy N/A -Primary Dressing Applied Mepilex Border -Other Dressing C.HYDROGEL -Mepilex Border 1 #2 R POST LE -Ulcer Cleansing Not Cleansed -Foul Odor after Cleansing No -Negative Pressure Wound Therapy N/A -Other Dressing abd abd -Primary Dressing Covered/Secured with Dry Gauze & Dry Gauze,Dry Dry Gauze & Roll Gauze, Gauze & Roll Roll Gauze, Secured with Gauze,Secured Secured with Tape with Tape Tape -Other Covering ABD PAD Right -Lotion applied to leg before No compression wrap -Stockings Yes -Other circaid circaid Left -Lotion applied to leg before No compression wrap -Stockings Yes -Other circaid circaid Treatment Response Procedure Procedure Procedure Tolerated Well Tolerated Well Tolerated Well Pain Scale: 0-10 Numeric Is Patient Pain Free? Yes Yes Yes Teaching: Wound Center Dressing Your Wound -Person Taught Patient -Teaching Method Discussion -Response to teaching Verbalize understanding WC - Visit Discharge Discharge Condition Stable Stable Stable Ambulatory Status Ambulatory, Ambulatory, Ambulatory, Walker Walker Walker Transportation Private Auto Private Auto Private Auto Accompanied by DAUGHTER Medication Reconcilliation completed & No No No provided to patient/care provider Clinical Summary of Care Provided Yes Yes Yes Assessment/Plan Assessment/Plan (1) Venous stasis ulcer of left lower leg with edema of left lower leg: CODE(S): I83.029 - Varicose veins of left lower extremity with ulcer of unspecified site; I83.892 - Varicose veins of left lower extremity with other complications; L97.929 - Non-pressure chronic ulcer of unspecified part of left lower leg with unspecified severity; R60.9 - Edema, unspecified (2) Diabetes mellitus: CODE(S): E11.9 - Type 2 diabetes mellitus without complications QUALIFIERS: Diabetes mellitus type: type 2 Diabetes mellitus group home insulin use: without group home use Diabetes mellitus complication status: with neurologic complications Diabetes mellitus complication detail: with polyneuropathy Qualified Code(s): E11.42 - Type 2 diabetes mellitus with diabetic polyneuropathy (3) Chronic obstructive pulmonary disease: CODE(S): J44.9 - Chronic obstructive pulmonary disease, unspecified QUALIFIERS: COPD type: unspecified COPD Qualified Code(s): J44.9 - Chronic obstructive pulmonary disease, unspecified (4) Hypertension: CODE(S): I10 - Essential (primary) hypertension QUALIFIERS: Hypertension type: primary hypertension Qualified Code(s): I10 - Essential (primary) hypertension (5) 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: CODE(S): I83.019 - Varicose veins of right lower extremity with ulcer of unspecified site; L97.919 - Non-pressure chronic ulcer of unspecified part of right lower leg with unspecified severity (6) Nonhealing ulcer of left lower extremity with fat layer exposed: CODE(S): L97.922 - Non-pressure chronic ulcer of unspecified part of left lower leg with fat layer exposed (7) Nonhealing ulcer of right lower extremity with fat layer exposed: CODE(S): L97.912 - Non-pressure chronic ulcer of unspecified part of right lower leg with fat layer exposed (8) Supplemental oxygen dependent: CODE(S): Z99.81 - Dependence on supplemental oxygen PLAN: Plan Debridement performed today in clinic as annotated above. At home wound-care instructions: Epifix #7 applied to her right posterior LE ulcer today per custodial services manager guidelines using 100% of product, rehydrated with hydrogel and covered with adaptic touch and secured with steristrips. She will not change the dressing on this for 1 week unless there is drainage and then would change gauze dressing. Reapply hydrogel daily. Off-loading: The patient was instructed to avoid pressure and friction on the affected areas. Reposition every 2 hours at minimum. Avoid prolonged standing and/or dangling of legs. When seated, feet should be elevated at chest level. Frequent ambulation is encouraged. Diet: Patient encouraged to increase protein intake while taking caution to avoid high carbohydrate and/or sugar intake. Labs/cultures/imaging: Vascular testing ordered to evaluate for arterial and venous disease showed incompetence of accessory saphenous veins b/l and normal arterial studies except decreased at level of great toe. Follow-up: Return in 1 week for wound care follow up. Return sooner or report to the emergency room should symptoms worsen, or new symptoms arise. Note: [employer] speech recognition bi solutions architect software was used to create po rtions of this document. Sound-alike and misspelled words, as well as other bi solutions architect errors may be contained in the documentation.
[2022-10-03 08:32] VITALS: BP 124/73; PULSE 71; RESP 18; TEMP 35.9; BMI 34.7
--- NOTE | 2022-10-03 11:08 | PCM.WC.PN ---
History of Present Illness Date of Service: 10/03/22 Chief Complaint: Venous leg ulcer left lower extremity and right lower extremity History of Wound: This is a 76-year-old white female who presents to the wound healing center today with complaint of nonhealing ulceration of her right and left lower extremities. She has a past medical history significant for chronic hypoxia on supplemental O2, COPD, type 2 diabetes mellitus, CHF, and osteoarthritis of the bilateral knees and GERD. The patient states that her wounds initially occurred after scratching the back of her leg on something almost a month ago. She saw her PCP last week and was started on Cephalexin QID x 10 days. She was 2 days left of treatment. She has not had any improvement in her pain or ulcers since starting the antibiotic. She has been applying triple antibiotic ointment covering with gauze for the last few days but had been using hydrogel and nonadherent dressings prior to that. She states that she has not been utilizing any compression due to pain but has been elevating her legs more frequently and using a wedge pillow. She denies any systemic or localized signs of infection at this time. Denies any prior cultures being taken. 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 Subjective Subjective Kandi tolerated Epifix treatment well. She remains healed today on her right calf. Denies fever, chills, increased drainage, increased pain or increased erythema. Objective Data Objective Data Vital Signs: Vital Signs Temp Pulse Resp BP O2 Del Method O2 Flow Rate 96.6 F L 71 18 124/73 H Room Air 2 10/03/22 08:32 10/03/22 08:32 10/03/22 08:32 10/03/22 08:32 09/12/22 08:27 09/26/22 08:51 Oxygen Flow Rate (L/min) 2 Oxygen Delivery Method Room Air Weight: 91.777 kg Body Mass Index (BMI) 34.7 Physical Exam Const alert, oriented x3 and no apparent distress General Appearance: cooperative and comfortable HEENT normocephalic and head/scalp atraumatic Resp normal respiratory effort Effort and Inspection: able to speak in complete sentences Cardio regular rate and regular rhythm Skin Wounds: wounds noted Wound Narrative: as in clinical panel Psych mental status grossly normal, thought process normal, cooperative and affect normal Debridement Note Debridement Note Wound debrided: Left posterior LE Laterality: Left Type of Debridement: Excisional debridement Anesthesia Used: 4% Lidocaine Solution, 5% Lidocaine Gel and Cetacaine Depth: Down to and including healthy tissue and in the subcutaneous layer Percentage of wound debrided: 100 Instrument Used: 5mm curette Tissue Removed: Yellow slough, devitalized tissue Severity: Fat Layer Exposed Amount of bleeding with debridement: Mild Bleeding Controlled with: Compression and gauze Patient tolerated procedure: Patient tolerated procedure well Post-Debridement Measurements and Additional Note: Post-Debridement Measurements/Treatment - Nurse 1 - General Ulcer Assessment Start: 09/12/22 08:26 Freq: Status: Active Protocol: [employer] Activity Type Activity Date Activity User E-sign Co-sign Detail Recorded Client Recorded Date Recorded By Document 09/12/22 08:27 MT [id number] 09/12/22 08:41 MT Document 09/19/22 08:28 RB [id number] 09/19/22 08:35 RB Document 09/26/22 08:51 RB [id number] 09/26/22 08:53 RB Edit Result 09/26/22 08:51 RB (1) [id number] 09/26/22 08:55 RB Document 10/03/22 08:32 DL Desktop 10/03/22 08:36 DL (1) Respiratory Rate (12-18) 18 => 20 H O2 L/MIN (L/min) => 2 09/12/22 09/19/22 09/26/22 08:27 08:28 08:51 - Today's Visit Information Type of service Follow-up Visit Follow-up Visit Follow-up Visit (Physician/AIRPORT REFUELING HANDLER (Physician/AIRPORT REFUELING HANDLER (Physician/AIRPORT REFUELING HANDLER ) ) ) Arrival Mode Ambulatory, Ambulatory Ambulatory, Wheelchair Walker Transfer Assistance None None Accompanied by daughter Patient Identification Verified (Name & No Yes Yes ) Patient Requires Transmission-Based No No Precautions Safety Precautions Fall Prevention Height and Weight Body Mass Index (BMI) 34.7 34.7 34.7 BMI Classification Obese Obese Obese Vital Signs Temperature (97.8 F-99.1 F) 97 F L 97.8 F 97.8 F Temperature Source Temporal Temporal Temporal Pulse Rate (60-100) 58 L 96 72 Pulse Location Monitor Monitor Monitor Respiratory Rate (12-18) 18 18 20 H Respiratory rate source Observation Observation Observation Oxygen Delivery Method Room Air O2 L/MIN (L/min) 2 Blood Pressure (90/60-120/80) 124/65 H 148/97 H 150/70 H Blood Pressure Mean (mm Hg) 84 114 96 Source Monitor Monitor Monitor Position Sitting Semi-Fowlers Semi-Fowlers Blood Pressure Location Right Arm Left Arm Left Arm History Since Last Visit- (Skip if this is Patient's initial visit) Have you changed medications since your No No last visit? Any new allergies or adverse reactions No No Had a fall/change in ADL's that may No No increase risk of falls Signs or symptoms of abuse and/or No No neglect since last visit Have you been in the hospital since your No No last visit? Has dressing in place as prescribed Yes Yes Yes Has compression in place as prescribed N/A Yes Yes Has offloadiing in place as prescribed N/A No No Experienced any changes in pain level or No No No management Left Footwear Regular Shoe Right Footwear Regular Shoe Pain Scale: 0-10 Numeric Is Patient Pain Free? Yes Yes Yes 10/03/22 08:32 WC - Today's Visit Information Type of service Follow-up Visit (Physician/AIRPORT REFUELING HANDLER ) Arrival Mode Ambulatory, Walker Transfer Assistance None Accompanied by Patient Identification Verified (Name & Yes ) Patient Requires Transmission-Based No Precautions Safety Precautions Height and Weight Body Mass Index (BMI) 34.7 BMI Classification Obese Vital Signs Temperature (97.8 F-99.1 F) 96.6 F L Temperature Source Temporal Pulse Rate (60-100) 71 Pulse Location Monitor Respiratory Rate (12-18) 18 Respiratory rate source Observation Oxygen Delivery Method O2 L/MIN (L/min) Blood Pressure (90/60-120/80) 124/73 H Blood Pressure Mean (mm Hg) 90 Source Monitor Position Blood Pressure Location History Since Last Visit- (Skip if this is Patient's initial visit) Have you changed medications since your No last visit? Any new allergies or adverse reactions No Had a fall/change in ADL's that may No increase risk of falls Signs or symptoms of abuse and/or No neglect since last visit Have you been in the hospital since your No last visit? Has dressing in place as prescribed Yes Has compression in place as prescribed Yes Has offloadiing in place as prescribed N/A Experienced any changes in pain level or No management Left Footwear Right Footwear Pain Scale: 0-10 Numeric Is Patient Pain Free? Yes WC - Nurse 1 - General Ulcer Measurement Start: 09/12/22 08:26 Freq: Status: Active Protocol: Activity Type Activity Date Activity User E-sign Co-sign Detail Recorded Client Recorded Date Recorded By Document 09/12/22 08:27 MT [id number] 09/12/22 08:41 MT Document 09/19/22 08:28 RB [id number] 09/19/22 08:35 RB Document 09/26/22 08:51 RB [id number] 09/26/22 08:53 RB Document 10/03/22 08:32 DL Desktop 10/03/22 08:36 DL 09/12/22 09/19/22 09/26/22 08:27 08:28 08:51 Wound Center Nurse 1 #3 L POST LE -Combined with other wound No -Current Size (cm) - Length 2.4 0.1 -Current Size (cm) - Width 0.6 0.1 -Current Size (cm) - Depth 0.1 0.1 -Total Square Cm 1.44 0.01 -Photo Taken Yes -Tunneling No -Undermining/Tunneling No -Circular Undermining No -Exudate Amt Small -Exudate Type Serosanguineous -Wound Margin Distinct, Outline Attached -Granulation Amt Medium (34-66%) -Granulation Quality Shallowater -Slough/Fibrin Yes -Necrosis Amt Medium (34-66%) -Necrotic Tissue Type Adherent Slough -Structure Exposed N/A -Texture (Leticia-wound Skin Appearance) Assessed, Scarring -Moisture (Leticia-wound Skin Appearance) Assessed -Color (Leticia-wound Skin Appearance) Assessed -Temperature (Leticia-wound Skin No Abnormality Appearance) (Pt Warm) -Tenderness on Palpation (Leticia-wound No Skin Appearance) -Ulcer Cleansing Wound Cleanser -Foul Odor after Cleansing No -Anesthetic Used 5% Lidocaine Gel #2 R POST LE -Combined with other wound No No -Current Size (cm) - Length 2.8 2.2 2.2 -Current Size (cm) - Width 4.0 3.9 3.5 -Current Size (cm) - Depth 0.1 0.2 0.1 -Total Square Cm 11.20 8.58 7.70 -Photo Taken Yes Yes -Tunneling No No -Undermining/Tunneling No No -Circular Undermining No No -Exudate Amt None Present Large Medium -Exudate Type Serosanguineous Serosanguineous -Wound Margin Flat & Intact Distinct, Distinct, Outline Outline Attached Attached -Granulation Amt Medium (34-66%) Medium (34-66%) -Granulation Quality Shallowater Shallowater -Slough/Fibrin Yes Yes -Necrosis Amt Large (67-100%) Medium (34-66%) Medium (34-66%) -Necrotic Tissue Type Adherent Slough Adherent Slough Adherent Slough -Structure Exposed N/A N/A -Texture (Leticia-wound Skin Appearance) Assessed Assessed, Assessed, Scarring Scarring -Moisture (Leticia-wound Skin Appearance) Assessed Assessed Assessed -Color (Leticia-wound Skin Appearance) Assessed Assessed Assessed -Temperature (Leticia-wound Skin No Abnormality No Abnormality No Abnormality Appearance) (Pt Warm) (Pt Warm) (Pt Warm) -Tenderness on Palpation (Leticia-wound No No No Skin Appearance) -Ulcer Cleansing Rinsed/ Wound Cleanser Wound Cleanser Irrigated with Saline -Foul Odor after Cleansing No Yes, Due to No Product Use -Anesthetic Used 4% Lidocaine 5% Lidocaine 5% Lidocaine Solution Gel Gel Lower Limb Edema Present Yes Yes Right Calf (cm) 39.6 38 39.5 Right Ankle (cm) 23 22.4 22.7 Left Calf (cm) 38.6 40 40 Left Ankle (cm) 22.7 22.8 22.2 10/03/22 08:32 Wound Center Nurse 1 #3 L POST LE -Combined with other wound -Current Size (cm) - Length -Current Size (cm) - Width -Current Size (cm) - Depth -Total Square Cm -Photo Taken -Tunneling -Undermining/Tunneling -Circular Undermining -Exudate Amt -Exudate Type -Wound Margin -Granulation Amt -Granulation Quality -Slough/Fibrin -Necrosis Amt -Necrotic Tissue Type -Structure Exposed -Texture (Leticia-wound Skin Appearance) -Moisture (Leticia-wound Skin Appearance) -Color (Leticia-wound Skin Appearance) -Temperature (Leticia-wound Skin Appearance) -Tenderness on Palpation (Leticia-wound Skin Appearance) -Ulcer Cleansing -Foul Odor after Cleansing -Anesthetic Used #2 R POST LE -Combined with other wound -Current Size (cm) - Length 2.4 -Current Size (cm) - Width 3.5 -Current Size (cm) - Depth 0.1 -Total Square Cm 8.40 -Photo Taken Yes -Tunneling -Undermining/Tunneling -Circular Undermining -Exudate Amt Medium -Exudate Type Serosanguineous -Wound Margin Distinct, Outline Attached -Granulation Amt Medium (34-66%) -Granulation Quality Shallowater -Slough/Fibrin -Necrosis Amt Medium (34-66%) -Necrotic Tissue Type Adherent Slough -Structure Exposed N/A -Texture (Leticia-wound Skin Appearance) Scarring -Moisture (Leticia-wound Skin Appearance) No Abnormality -Color (Leticia-wound Skin Appearance) Hemosiderin Staining -Temperature (Leticia-wound Skin No Abnormality Appearance) (Pt Warm) -Tenderness on Palpation (Leticia-wound Skin Appearance) -Ulcer Cleansing Soap and Water -Foul Odor after Cleansing No -Anesthetic Used 5% Lidocaine Gel Lower Limb Edema Present Right Calf (cm) 40.5 Right Ankle (cm) 24.7 Left Calf (cm) Left Ankle (cm) WC - Nurse 2 - General Ulcer CM Notes Start: 09/12/22 08:26 Freq: Status: Active Protocol: Activity Type Activity Date Activity User E-sign Co-sign Detail Recorded Client Recorded Date Recorded By Document 09/12/22 08:45 MW Desktop 09/12/22 09:19 MW Document 09/19/22 09:18 MW [id number] 09/19/22 09:33 MW Document 09/26/22 09:01 MW [id number] 09/26/22 09:17 MW Document 10/03/22 08:51 MW Desktop 10/03/22 09:09 MW 09/12/22 09/19/22 09/26/22 08:45 09:18 09:01 Wound Center Nurse 2 #3 L POST LE -Time 08:45 09:18 -Correct Patient Yes Yes -Correct Side, Site, Position Yes Yes -Correct Procedure Yes Yes -Procedure Performed Yes No -Type of Procedure Debridement -Clinical Debridement Subcutaneous -Tissue Removed Subcutaneous -Post Debridement (cm) - Length 0.2 -Post Debridement (cm) - Width 0.2 -Post Debridement (cm) - Depth 0.1 -Total Square (Post) (cm) 0.04 -Area of Debridement (cm) - Length 0.2 -Area of Debridement (cm) - Width 0.2 -Total Square (Area) (cm) 0.04 -Tunneling No No -Undermining/Tunneling No No -Circular Undermining No No -Wound/Ulcer Outcome Not Healed Healed- Epithelialized -Ulcer Cleansing Rinsed/ Irrigated with Saline -Foul Odor after Cleansing No -Bioengineered Tissue No -Bleeding Controlled with Pressure -Treatment Response Procedure Tolerated Well -Offloading No -Debridement - Subq, 1st 20sq cm Yes #2 R POST LE -Time 08:45 09:19 09:05 -Correct Patient Yes Yes Yes -Correct Side, Site, Position Yes Yes Yes -Correct Procedure Yes Yes Yes -Procedure Performed Yes Yes Yes -Type of Procedure Debridement Debridement Debridement -Clinical Debridement Subcutaneous Subcutaneous Subcutaneous -Tissue Removed Subcutaneous Subcutaneous Subcutaneous -Post Debridement (cm) - Length 2.4 2.5 2.3 -Post Debridement (cm) - Width 4.0 4.0 3.7 -Post Debridement (cm) - Depth 0.1 1 0.1 -Total Square (Post) (cm) 9.60 10.00 8.51 -Area of Debridement (cm) - Length 2.4 2.5 2.3 -Area of Debridement (cm) - Width 4.0 4.0 3.7 -Total Square (Area) (cm) 9.60 10.00 8.51 -Tunneling No No No -Undermining/Tunneling No No No -Circular Undermining No No No -Wound/Ulcer Outcome Not Healed Not Healed Not Healed -Ulcer Cleansing Rinsed/ Rinsed/ Rinsed/ Irrigated with Irrigated with Irrigated with Saline Saline Saline -Foul Odor after Cleansing No No No -Bioengineered Tissue Yes Yes Yes -Type of Bioengineered Tissue Epifix Mesh Epifix Mesh Epifix Mesh -Expiration Date 05/08/27 05/08/27 05/08/27 -Product Lot Number [id number] -Percent Used 100 100 100 -Lot number of Saline Used [id number] -Bleeding Controlled with Pressure Pressure Pressure -Treatment Response Procedure Procedure Procedure Tolerated Well Tolerated Well Tolerated Well -Offloading No No No -Debridement - Subq, 1st 20sq cm No No No -Apply Skin Sub - 1st 25 sq cm - Legs 1 1 1 -Epifix Mesh (per sq cm) 11 11 11 Pain Scale: 0-10 Numeric Is Patient Pain Free? Yes Yes Yes 10/03/22 08:51 Wound Center Nurse 2 #3 L POST LE -Time -Correct Patient -Correct Side, Site, Position -Correct Procedure -Procedure Performed -Type of Procedure -Clinical Debridement -Tissue Removed -Post Debridement (cm) - Length -Post Debridement (cm) - Width -Post Debridement (cm) - Depth -Total Square (Post) (cm) -Area of Debridement (cm) - Length -Area of Debridement (cm) - Width -Total Square (Area) (cm) -Tunneling -Undermining/Tunneling -Circular Undermining -Wound/Ulcer Outcome -Ulcer Cleansing -Foul Odor after Cleansing -Bioengineered Tissue -Bleeding Controlled with -Treatment Response -Offloading -Debridement - Subq, 1st 20sq cm #2 R POST LE -Time 08:54 -Correct Patient Yes -Correct Side, Site, Position Yes -Correct Procedure Yes -Procedure Performed Yes -Type of Procedure Debridement -Clinical Debridement Subcutaneous -Tissue Removed Subcutaneous -Post Debridement (cm) - Length 2.2 -Post Debridement (cm) - Width 3.7 -Post Debridement (cm) - Depth 0.1 -Total Square (Post) (cm) 8.14 -Area of Debridement (cm) - Length 2.2 -Area of Debridement (cm) - Width 3.7 -Total Square (Area) (cm) 8.14 -Tunneling No -Undermining/Tunneling No -Circular Undermining No -Wound/Ulcer Outcome Not Healed -Ulcer Cleansing Rinsed/ Irrigated with Saline -Foul Odor after Cleansing No -Bioengineered Tissue No -Type of Bioengineered Tissue Epifix Mesh -Expiration Date 07/09/27 -Product Lot Number [id number] -Percent Used 100 -Lot number of Saline Used [id number] -Bleeding Controlled with Pressure -Treatment Response Procedure Tolerated Well -Offloading No -Debridement - Subq, 1st 20sq cm No -Apply Skin Sub - 1st 25 sq cm - Legs 1 -Epifix Mesh (per sq cm) 11 Pain Scale: 0-10 Numeric Is Patient Pain Free? Yes WC - Nurse 3 - General Ulcer D/C NN Start: 09/12/22 08:26 Freq: Status: Active Protocol: Activity Type Activity Date Activity User E-sign Co-sign Detail Recorded Client Recorded Date Recorded By Document 09/12/22 09:20 MW Desktop 09/12/22 09:24 MW Document 09/19/22 09:39 RB [id number] 09/19/22 09:40 RB Document 09/26/22 09:27 RB [id number] 09/26/22 09:28 RB 09/12/22 09/19/22 09/26/22 09:20 09:39 09:27 Wound Care Center Nurse 3 #3 L POST LE -Ulcer Cleansing Rinsed/ Irrigated with Saline -Foul Odor after Cleansing No -Negative Pressure Wound Therapy N/A -Primary Dressing Applied Mepilex Border -Other Dressing C.HYDROGEL -Mepilex Border 1 #2 R POST LE -Ulcer Cleansing Not Cleansed -Foul Odor after Cleansing No -Negative Pressure Wound Therapy N/A -Other Dressing abd abd -Primary Dressing Covered/Secured with Dry Gauze & Dry Gauze,Dry Dry Gauze & Roll Gauze, Gauze & Roll Roll Gauze, Secured with Gauze,Secured Secured with Tape with Tape Tape -Other Covering ABD PAD Right -Lotion applied to leg before No compression wrap -Stockings Yes -Other circaid circaid Left -Lotion applied to leg before No compression wrap -Stockings Yes -Other circaid circaid Treatment Response Procedure Procedure Procedure Tolerated Well Tolerated Well Tolerated Well Pain Scale: 0-10 Numeric Is Patient Pain Free? Yes Yes Yes Teaching: Wound Center Dressing Your Wound -Person Taught Patient -Teaching Method Discussion -Response to teaching Verbalize understanding WC - Visit Discharge Discharge Condition Stable Stable Stable Ambulatory Status Ambulatory, Ambulatory, Ambulatory, Walker Walker Walker Transportation Private Auto Private Auto Private Auto Accompanied by DAUGHTER Medication Reconcilliation completed & No No No provided to patient/care provider Clinical Summary of Care Provided Yes Yes Yes Assessment/Plan Assessment/Plan (1) Venous stasis ulcer of left lower leg with edema of left lower leg: CODE(S): I83.029 - Varicose veins of left lower extremity with ulcer of unspecified site; I83.892 - Varicose veins of left lower extremity with other complications; L97.929 - Non-pressure chronic ulcer of unspecified part of left lower leg with unspecified severity; R60.9 - Edema, unspecified (2) Diabetes mellitus: CODE(S): E11.9 - Type 2 diabetes mellitus without complications QUALIFIERS: Diabetes mellitus type: type 2 Diabetes mellitus ferry terminal 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 insulin use: without mcfp use Diabetes mellitus complication status: with neurologic complications Diabetes mellitus complication detail: with polyneuropathy Qualified Code(s): E11.42 - Type 2 diabetes mellitus with diabetic polyneuropathy (3) Chronic obstructive pulmonary disease: CODE(S): J44.9 - Chronic obstructive pulmonary disease, unspecified QUALIFIERS: COPD type: unspecified COPD Qualified Code(s): J44.9 - Chronic obstructive pulmonary disease, unspecified (4) Hypertension: CODE(S): I10 - Essential (primary) hypertension QUALIFIERS: Hypertension type: primary hypertension Qualified Code(s): I10 - Essential (primary) hypertension (5) 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: CODE(S): I83.019 - Varicose veins of right lower extremity with ulcer of unspecified site; L97.919 - Non-pressure chronic ulcer of unspecified part of right lower leg with unspecified severity (6) Nonhealing ulcer of left lower extremity with fat layer exposed: CODE(S): L97.922 - Non-pressure chronic ulcer of unspecified part of left lower leg with fat layer exposed (7) Nonhealing ulcer of right lower extremity with fat layer exposed: CODE(S): L97.912 - Non-pressure chronic ulcer of unspecified part of right lower leg with fat layer exposed (8) Supplemental oxygen dependent: CODE(S): Z99.81 - Dependence on supplemental oxygen PLAN: Plan Debridement performed today in clinic as annotated above. At home wound-care instructions: Epifix #8 applied to her right posterior LE ulcer today per plush brusher guidelines using 100% of product, rehydrated with hydrogel and covered with adaptic touch and secured with steristrips. She will not change the dressing on this for 1 week unless there is drainage and then would change secondary gauze dressing. Reapply hydrogel daily. Off-loading: The patient was instructed to avoid pressure and friction on the affected areas. Reposition every 2 hours at minimum. Avoid prolonged standing and/or dangling of legs. When seated, feet should be elevated at chest level. Frequent ambulation is encouraged. Diet: Patient encouraged to increase protein intake while taking caution to avoid high carbohydrate and/or sugar intake. Labs/cultures/imaging: Vascular testing ordered to evaluate for arterial and venous disease showed incompetence of accessory saphenous veins b/l and normal arterial studies except decreased at level of great toe. Follow-up: Return in 1 week for wound care follow up. Return sooner or report to the emergency room should symptoms worsen, or new symptoms arise. Note: [employer] speech recognition dress designer software was used to create portions of this document. Sound-alike and misspelled words, as well as other dress designer errors may be contained in the documentation.
== END 2022-10-05 23:59 | disposition home or self-care (01) ==
LOC: WC 08:30
PROVIDERS: PCP Family Medicine; Referring Provider Family Medicine; Visit Provider Family Medicine
DX: I83.018 Varicose veins of right lower extremity with ulcer other part of lower leg (principal); L97.812 Non-pressure chronic ulcer of other part of right lower leg with fat layer exposed; L97.822 Non-pressure chronic ulcer of other part of left lower leg with fat layer exposed; I83.028 Varicose veins of left lower extremity with ulcer other part of lower leg; J44.9 Chronic obstructive pulmonary disease, unspecified; I11.0 Hypertensive heart disease with heart failure; I50.9 Heart failure, unspecified; E11.42 Type 2 diabetes mellitus with diabetic polyneuropathy; R60.9 Edema, unspecified; M17.0 Bilateral primary osteoarthritis of knee; K21.9 Gastro-esophageal reflux disease without esophagitis; Z99.81 Dependence on supplemental oxygen; Z79.1 Long term (current) use of non-steroidal anti-inflammatories (NSAID); Z79.899 Other long term (current) drug therapy
CPT/HCPCS: 11042; 15271; Q4186

== ENCOUNTER 2022-10-24 09:00 | Outpatient (RCR) | payer MEDICARE, SELFPAY ==
[2022-10-06 00:39] VITALS: BP 124/73; PULSE 71; RESP 18; TEMP 35.9; BMI 34.7
[2022-10-10 08:56] VITALS: BP 141/74; PULSE 64; RESP 16; TEMP 36.3; BMI 34.7
--- NOTE | 2022-10-10 13:57 | PCM.WC.PN ---
History of Present Illness Date of Service: 10/10/22 Chief Complaint: Venous leg ulcer left lower extremity and right lower extremity History of Wound: This is a 76-year-old white female who presents to the wound healing center today with complaint of nonhealing ulceration of her right and left lower extremities. She has a past medical history significant for chronic hypoxia on supplemental O2, COPD, type 2 diabetes mellitus, CHF, and osteoarthritis of the bilateral knees and GERD. The patient states that her wounds initially occurred after scratching the back of her leg on something almost a month ago. She saw her PCP last week and was started on Cephalexin QID x 10 days. She was 2 days left of treatment. She has not had any improvement in her pain or ulcers since starting the antibiotic. She has been applying triple antibiotic ointment covering with gauze for the last few days but had been using hydrogel and nonadherent dressings prior to that. She states that she has not been utilizing any compression due to pain but has been elevating her legs more frequently and using a wedge pillow. She denies any systemic or localized signs of infection at this time. Denies any prior cultures being taken. 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 Subjective Subjective Kandi tolerated Epifix treatment well. Left posterior calf improved in size. She remains healed today on her right calf. Denies fever, chills, increased drainage, increased pain or increased erythema. Objective Data Objective Data Vital Signs: Vital Signs Temp Pulse Resp BP O2 Flow Rate 97.3 F L 64 16 141/74 H 2 10/10/22 08:56 10/10/22 08:56 10/10/22 08:56 10/10/22 08:56 10/06/22 00:39 Oxygen Flow Rate (L/min) 2 Weight: 91.777 kg Body Mass Index (BMI) 34.7 Physical Exam Const alert, oriented x3 and no apparent distress General Appearance: cooperative and comfortable HEENT normocephalic and head/scalp atraumatic Resp normal respiratory effort Effort and Inspection: able to speak in complete sentences Cardio regular rate and regular rhythm Skin Wounds: wounds noted Wound Narrative: as in clinical panel Psych mental status grossly normal, thought process normal, cooperative and affect normal Debridement Note Debridement Note Wound debrided: Left posterior LE Laterality: Left Type of Debridement: Excisional debridement Anesthesia Used: 4% Lidocaine Solution, 5% Lidocaine Gel and Cetacaine Depth: Down to and including healthy tissue and in the subcutaneous layer Percentage of wound debrided: 100 Instrument Used: 5mm curette Tissue Removed: Yellow slough, devitalized tissue Severity: Fat Layer Exposed Amount of bleeding with debridement: Mild Bleeding Controlled with: Compression and gauze Patient tolerated procedure: Patient tolerated procedure well Post-Debridement Measurements and Additional Note: Post-Debridement Measurements/Treatment - Nurse 1 - General Ulcer Assessment Start: 10/10/22 08:56 Freq: Status: Active Protocol: CHING Activity Type Activity Date Activity User E-sign Co-sign Detail Recorded Client Recorded Date Recorded By Document 10/10/22 08:56 SHARON [id number] 10/10/22 09:10 SHARON 10/10/22 08:56 WC - Today's Visit Information Type of service Follow-up Visit (Physician/SLEEVE WHEEL [employer]KER ) Arrival Mode Ambulatory, Walker Accompanied by Daughter Patient Identification Verified (Name & Yes ) Patient Requires Transmission-Based No Precautions Height and Weight Body Mass Index (BMI) 34.7 BMI Classification Obese Vital Signs Temperature (97.8 F-99.1 F) 97.3 F L Temperature Source Temporal Pulse Rate (60-100) 64 Pulse Location Monitor Respiratory Rate (12-18) 16 Respiratory rate source Observation Blood Pressure (90/60-120/80) 141/74 H Blood Pressure Mean (mm Hg) 96 Source Monitor Position Semi-Fowlers Blood Pressure Location Left Arm History Since Last Visit- (Skip if this is Patient's initial visit) Have you changed medications since your No last visit? Any new allergies or adverse reactions No Had a fall/change in ADL's that may No increase risk of falls Signs or symptoms of abuse and/or No neglect since last visit Have you been in the hospital since your No last visit? Has dressing in place as prescribed Yes Has compression in place as prescribed Yes Has offloadiing in place as prescribed N/A Experienced any changes in pain level or No management Left Footwear Regular Shoe Right Footwear Regular Shoe Pain Scale: 0-10 Numeric Is Patient Pain Free? Yes - Nurse 1 - General Ulcer Measurement Start: 10/10/22 08:56 Freq: Status: Active Protocol: Activity Type Activity Date Activity User E-sign Co-sign Detail Recorded Client Recorded Date Recorded By Document 10/10/22 08:56 [id number] 10/10/22 09:10 JF 10/10/22 08:56 Wound Center Nurse 1 #2 R POST LE -Combined with other wound No -Current Size (cm) - Length 2.2 -Current Size (cm) - Width 3.1 -Current Size (cm) - Depth 0.1 -Total Square Cm 6.82 -Photo Taken Yes -Epithelialization Medium 34-66% -Tunneling No -Undermining/Tunneling No -Circular Undermining No -Exudate Amt Medium -Exudate Type Serosanguineous -Wound Margin Flat & Intact -Granulation Amt Large (67-100%) -Granulation Quality [place] -Slough/Fibrin Yes -Necrosis Amt Small (1-33%) -Necrotic Tissue Type Adherent Slough -Structure Exposed N/A -Texture (Leticia-wound Skin Appearance) Assessed, Scarring -Moisture (Leticia-wound Skin Appearance) Assessed,Dry/ Scaly -Color (Leticia-wound Skin Appearance) Assessed -Temperature (Leticia-wound Skin No Abnormality Appearance) (Pt Warm) -Tenderness on Palpation (Leticia-wound No Skin Appearance) -Ulcer Cleansing Wound Cleanser -Foul Odor after Cleansing No -Anesthetic Used 5% Lidocaine Gel Lower Limb Edema Present Yes Left Calf (cm) 38.5 Left Ankle (cm) 23.0 WC - Nurse 2 - General Ulcer CM Notes Start: 10/10/22 08:56 Freq: Status: Active Protocol: Activity Type Activity Date Activity User E-sign Co-sign Detail Recorded Client Recorded Date Recorded By Document 10/10/22 09:38 MW [id number] 10/10/22 09:51 MW 10/10/22 09:38 Wound Center Nurse 2 #2 R POST LE -Time 09:39 -Correct Patient Yes -Correct Side, Site, Position Yes -Correct Procedure Yes -Procedure Performed Yes -Type of Procedure Debridement -Clinical Debridement Subcutaneous -Tissue Removed Subcutaneous -Post Debridement (cm) - Length 2.0 -Post Debridement (cm) - Width 3.0 -Post Debridement (cm) - Depth 0.1 -Total Square (Post) (cm) 6.00 -Area of Debridement (cm) - Length 2.0 -Area of Debridement (cm) - Width 3.0 -Total Square (Area) (cm) 6.00 -Tunneling No -Undermining/Tunneling No -Circular Undermining No -Wound/Ulcer Outcome Not Healed -Ulcer Cleansing Rinsed/ Irrigated with Saline -Foul Odor after Cleansing No -Bioengineered Tissue No -Type of Bioengineered Tissue Epifix Mesh -Expiration Date 07/09/27 -Product Lot Number [id number] -Percent Used 100 -Lot number of Saline Used [id number] -Bleeding Controlled with Pressure -Treatment Response Procedure Tolerated Well -Offloading No -Debridement - Subq, 1st 20sq cm No -Apply Skin Sub - 1st 25 sq cm - Legs 1 -Epifix Mesh (per sq cm) 11 Pain Scale: 0-10 Numeric Is Patient Pain Free? Yes - Nurse 3 - General Ulcer D/C NN Start: 10/10/22 08:56 Freq: Status: Active Protocol: Activity Type Activity Date Activity User E-sign Co-sign Detail Recorded Client Recorded Date Recorded By Document 10/10/22 10:24 [id number] 10/10/22 10:24 10/10/22 10:24 Wound Care Center Nurse 3 #2 R POST LE -Ulcer Cleansing Rinsed/ Irrigated with Saline -Foul Odor after Cleansing No -Primary Dressing Covered/Secured with Dry Gauze & Roll Gauze, Secured with Tape Right -Stockings Yes: circaid Pain Scale: 0-10 Numeric Is Patient Pain Free? Yes - Visit Discharge Discharge Condition Stable Ambulatory Status Ambulatory Transportation Private Auto Medication Reconcilliation completed & Yes provided to patient/care provider Clinical Summary of Care Provided Yes Assessment/Plan Assessment/Plan (1) Venous stasis ulcer of left lower leg with edema of left lower leg: CODE(S): I83.029 - Varicose veins of left lower extremity with ulcer of unspecified site; I83.892 - Varicose veins of left lower extremity with other complications; L97.929 - Non-pressure chronic ulcer of unspecified part of left lower leg with unspecified severity; R60.9 - Edema, unspecified (2) Diabetes mellitus: CODE(S): E11.9 - Type 2 diabetes mellitus without complications QUALIFIERS: Diabetes mellitus type: type 2 Diabetes mellitus senior living insulin use: without termite renewal inspector use Diabetes mellitus complication status: with neurologic complications Diabetes mellitus complication detail: with polyneuropathy Qualified Code(s): E11.42 - Type 2 diabetes mellitus with diabetic polyneuropathy (3) Chronic obstructive pulmonary disease: CODE(S): J44.9 - Chronic obstructive pulmonary disease, unspecified QUALIFIERS: COPD type: unspecified COPD Qualified Code(s): J44.9 - Chronic obstructive pulmonary disease, unspecified (4) Hypertension: CODE(S): I10 - Essential (primary) hypertension QUALIFIERS: Hypertension type: primary hypertension Qualified Code(s): I10 - Essential (primary) hypertension (5) 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: CODE(S): I83.019 - Varicose veins of right lower extremity with ulcer of unspecified site; L97.919 - Non-pressure chronic ulcer of unspecified part of right lower leg with unspecified severity (6) Nonhealing ulcer of left lower extremity with fat layer exposed: CODE(S): L97.922 - Non-pressure chronic ulcer of unspecified part of left lower leg with fat layer exposed (7) Nonhealing ulcer of right lower extremity with fat layer exposed: CODE(S): L97.912 - Non-pressure chronic ulcer of unspecified part of right lower leg with fat layer exposed (8) Supplemental oxygen dependent: CODE(S): Z99.81 - Dependence on supplemental oxygen PLAN: Plan Debridement performed today in clinic as annotated above. At home wound-care instructions: Epifix #9 applied to her right posterior LE ulcer today per railway traction line worker guidelines using 100% of product, rehydrated with hydrogel and covered with adaptic touch and secured with steristrips. She will not change the dressing on this for 1 week unless there is drainage and then would change secondary gauze dressing. Reapply hydrogel daily. Off-loading: The patient was instructed to avoid pressure and friction on the affected areas. Reposition every 2 hours at minimum. Avoid prolonged standing and/or dangling of legs. When seated, feet should be elevated at chest level. Frequent ambulation is encouraged. Diet: Patient encouraged to increase protein intake while taking caution to avoid high carbohydrate and/or sugar intake. Labs/cultures/imaging: Vascular testing ordered to evaluate for arterial and venous disease showed incompetence of accessory saphenous veins b/l and normal arterial studies except decreased at level of great toe. Follow-up: Return in 1 week for wound care follow up. Return sooner or report to the emergency room should symptoms worsen, or new symptoms arise. Note: [employer] speech recognition health center assistant software was used to create portions of this document. Sound-alike and misspelled words, as well as other health center assistant errors may be contained in the documentation.
[2022-10-17 09:14] VITALS: BP 148/70; PULSE 76; RESP 18; TEMP 35.9; BMI 34.7
--- NOTE | 2022-10-17 14:01 | PN.PCM_ITS ---
History of Present Illness Date of Service: 10/17/22 Chief Complaint: Venous leg ulcer left lower extremity and right lower extremity History of Wound: This is a 76-year-old white female who presents to the wound healing center today with complaint of nonhealing ulceration of her right and left lower extremities. She has a past medical history significant for chronic hypoxia on supplemental O2, COPD, type 2 diabetes mellitus, CHF, and osteoarthritis of the bilateral knees and GERD. The patient states that her wounds initially occurred after scratching the back of her leg on something almost a month ago. She saw her PCP last week and was started on Cephalexin QID x 10 days. She was 2 days left of treatment. She has not had any improvement in her pain or ulcers since starting the antibiotic. She has been applying triple antibiotic ointment covering with gauze for the last few days but had been using hydrogel and nonadherent dressings prior to that. She states that she has not been utilizing any compression due to pain but has been elevating her legs more frequently and using a wedge pillow. She denies any systemic or localized signs of infection at this time. Denies any prior cultures being taken. 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 Subjective Subjective Kandi tolerated Epifix treatment well. Left posterior calf improved in size. She remains healed today on her right calf. Denies fever, chills, increased drainage, increased pain or increased erythema. Objective Data Objective Data Vital Signs: Vital Signs Temp Pulse Resp BP O2 Flow Rate 96.7 F L 76 18 148/70 H 3 10/17/22 09:14 10/17/22 09:14 10/17/22 09:14 10/17/22 09:14 10/17/22 09:14 Oxygen Flow Rate (L/min) 3 Weight: 91.777 kg Body Mass Index (BMI) 34.7 Physical Exam Const alert, oriented x3 and no apparent distress General Appearance: cooperative and comfortable HEENT normocephalic and head/scalp atraumatic Resp normal respiratory effort Effort and Inspection: able to speak in complete sentences Cardio regular rate and regular rhythm Skin Wounds: wounds noted Wound Narrative: as in clinical panel Psych mental status grossly normal, thought process normal, cooperative and affect normal Debridement Note Debridement Note Wound debrided: Left posterior LE Laterality: Left Type of Debridement: Excisional debridement Anesthesia Used: 4% Lidocaine Solution, 5% Lidocaine Gel and Cetacaine Depth: Down to and including healthy tissue and in the subcutaneous layer Percentage of wound debrided: 100 Instrument Used: 5mm curette Tissue Removed: Yellow slough, devitalized tissue Severity: Fat Layer Exposed Amount of bleeding with debridement: Mild Bleeding Controlled with: Compression and gauze Patient tolerated procedure: Patient tolerated procedure well Post-Debridement Measurements and Additional Note: Post-Debridement Measurements/Treatment - Nurse 1 - General Ulcer Assessment Start: 10/10/22 08:56 Freq: Status: Active Protocol: CHING Activity Type Activity Date Activity User E-sign Co-sign Detail Recorded Client Recorded Date Recorded By Document 10/10/22 08:56 SHARON [id number] 10/10/22 09:10 JF Document 10/17/22 09:14 RB [id number] 10/17/22 09:22 RB 10/10/22 10/17/22 08:56 09:14 - Today's Visit Information Type of service Follow-up Visit Follow-up Visit (Physician/FAMILY COURT JUSTICE (Physician/FAMILY COURT JUSTICE ) ) Arrival Mode Ambulatory, Ambulatory, Walker Walker Transfer Assistance None Accompanied by Daughter Patient Identification Verified (Name & Yes Yes ) Patient Requires Transmission-Based No No Precautions Height and Weight Body Mass Index (BMI) 34.7 34.7 BMI Classification Obese Obese Vital Signs Temperature (97.8 F-99.1 F) 97.3 F L 96.7 F L Temperature Source Temporal Temporal Pulse Rate (60-100) 64 76 Pulse Location Monitor Monitor Respiratory Rate (12-18) 16 18 Respiratory rate source Observation Observation O2 L/MIN (L/min) 3 Blood Pressure (90/60-120/80) 141/74 H 148/70 H Blood Pressure Mean (mm Hg) 96 96 Source Monitor Monitor Position Semi-Fowlers Semi-Fowlers Blood Pressure Location Left Arm Left Arm History Since Last Visit- (Skip if this is Patient's initial visit) Have you changed medications since your No No last visit? Any new allergies or adverse reactions No No Had a fall/change in ADL's that may No No increase risk of falls Signs or symptoms of abuse and/or No No neglect since last visit Have you been in the hospital since your No No last visit? Has dressing in place as prescribed Yes Yes Has compression in place as prescribed Yes Yes Has offloadiing in place as prescribed N/A No Experienced any changes in pain level or No No management Left Footwear Regular Shoe Right Footwear Regular Shoe Pain Scale: 0-10 Numeric Is Patient Pain Free? Yes Yes WC - Nurse 1 - General Ulcer Measurement Start: 10/10/22 08:56 Freq: Status: Active Protocol: Activity Type Activity Date Activity User E-sign Co-sign Detail Recorded Client Recorded Date Recorded By Document 10/10/22 08:56 [id number] 10/10/22 09:10 JF Document 10/17/22 09:14 RB [id number] 10/17/22 09:22 RB 10/10/22 10/17/22 08:56 09:14 Wound Center Nurse 1 #2 R POST LE -Combined with other wound No No -Current Size (cm) - Length 2.2 2.1 -Current Size (cm) - Width 3.1 2.9 -Current Size (cm) - Depth 0.1 0.1 -Total Square Cm 6.82 6.09 -Photo Taken Yes Yes -Epithelialization Medium 34-66% -Tunneling No No -Undermining/Tunneling No No -Circular Undermining No No -Exudate Amt Medium Medium -Exudate Type Serosanguineous Serosanguineous -Wound Margin Flat & Intact Distinct, Outline Attached -Granulation Amt Large (67-100%) Medium (34-66%) -Granulation Quality [place] -Slough/Fibrin Yes Yes -Necrosis Amt Small (1-33%) Large (67-100%) -Necrotic Tissue Type Adherent Slough Adherent Slough -Structure Exposed N/A N/A -Texture (Leticia-wound Skin Appearance) Assessed, Assessed Scarring -Moisture (Leticia-wound Skin Appearance) Assessed,Dry/ Assessed Scaly -Color (Leticia-wound Skin Appearance) Assessed -Temperature (Leticia-wound Skin No Abnormality No Abnormality Appearance) (Pt Warm) (Pt Warm) -Tenderness on Palpation (Leticia-wound No No Skin Appearance) -Ulcer Cleansing Wound Cleanser Wound Cleanser -Foul Odor after Cleansing No No -Anesthetic Used 5% Lidocaine 5% Lidocaine Gel Gel Lower Limb Edema Present Yes Yes Right Calf (cm) 42.5 Right Ankle (cm) 24.5 Left Calf (cm) 38.5 Left Ankle (cm) 23.0 WC - Nurse 2 - General Ulcer CM Notes Start: 10/10/22 08:56 Freq: Status: Active Protocol: Activity Type Activity Date Activity User E-sign Co-sign Detail Recorded Client Recorded Date Recorded By Document 10/10/22 09:38 MW [id number] 10/10/22 09:51 MW Document 10/17/22 09:28 MW [id number] 10/17/22 09:39 MW 10/10/22 10/17/22 09:38 09:28 Wound Center Nurse 2 #2 R POST LE -Time 09:39 09:32 -Correct Patient Yes Yes -Correct Side, Site, Position Yes Yes -Correct Procedure Yes Yes -Procedure Performed Yes Yes -Type of Procedure Debridement Debridement -Clinical Debridement Subcutaneous Subcutaneous -Tissue Removed Subcutaneous Subcutaneous -Post Debridement (cm) - Length 2.0 1.7 -Post Debridement (cm) - Width 3.0 2.9 -Post Debridement (cm) - Depth 0.1 0.1 -Total Square (Post) (cm) 6.00 4.93 -Area of Debridement (cm) - Length 2.0 1.7 -Area of Debridement (cm) - Width 3.0 2.9 -Total Square (Area) (cm) 6.00 4.93 -Tunneling No No -Undermining/Tunneling No No -Circular Undermining No No -Wound/Ulcer Outcome Not Healed Not Healed -Ulcer Cleansing Rinsed/ Rinsed/ Irrigated with Irrigated with Saline Saline -Foul Odor after Cleansing No No -Bioengineered Tissue No Yes -Type of Bioengineered Tissue Epifix Mesh Epifix -Expiration Date 07/09/27 04/08/27 -Product Lot Number [id number] -Percent Used 100 100 -Lot number of Saline Used [id number] -Bleeding Controlled with Pressure Pressure -Treatment Response Procedure Procedure Tolerated Well Tolerated Well -Offloading No No -Debridement - Subq, 1st 20sq cm No No -Apply Skin Sub - 1st 25 sq cm - Legs 1 1 -Epifix (per sq cm) 4 -Epifix Mesh (per sq cm) 11 Pain Scale: 0-10 Numeric Is Patient Pain Free? Yes Yes - Nurse 3 - General Ulcer D/C NN Start: 10/10/22 08:56 Freq: Status: Active Protocol: Activity Type Activity Date Activity User E-sign Co-sign Detail Recorded Client Recorded Date Recorded By Document 10/10/22 10:24 [id number] 10/10/22 10:24 Document 10/17/22 09:49 RB [id number] 10/17/22 09:50 RB 10/10/22 10/17/22 10:24 09:49 Wound Care Center Nurse 3 #2 R POST LE -Ulcer Cleansing Rinsed/ Irrigated with Saline -Foul Odor after Cleansing No -Primary Dressing Applied C Hydrogel ($) -Primary Dressing Covered/Secured with Dry Gauze & Dry Gauze,Dry Roll Gauze, Gauze & Roll Secured with Gauze,Secured Tape with Tape Right -Stockings Yes: circaid -Other circaids bilat Treatment Response Procedure Tolerated Well Pain Scale: 0-10 Numeric Is Patient Pain Free? Yes Yes - Visit Discharge Discharge Condition Stable Stable Ambulatory Status Ambulatory Ambulatory, Walker Transportation Private Auto Private Auto Medication Reconcilliation completed & Yes No provided to patient/care provider Clinical Summary of Care Provided Yes Yes Assessment/Plan Assessment/Plan (1) Venous stasis ulcer of left lower leg with edema of left lower leg: CODE(S): I83.029 - Varicose veins of left lower extremity with ulcer of unspecified site; I83.892 - Varicose veins of left lower extremity with other complications; L97.929 - Non-pressure chronic ulcer of unspecified part of left lower leg with unspecified severity; R60.9 - Edema, unspecified (2) Diabetes mellitus: CODE(S): E11.9 - Type 2 diabetes mellitus without complications QUALIFIERS: Diabetes mellitus type: type 2 Diabetes mellitus buttermaker continuous churn insulin use: without buttermaker continuous churn use Diabetes mellitus complication status: with neurologic complications Diabetes mellitus complication detail: with polyneuropathy Qualified Code(s): E11.42 - Type 2 diabetes mellitus with diabetic polyneuropathy (3) Chronic obstructive pulmonary disease: CODE(S): J44.9 - Chronic obstructive pulmonary disease, unspecified QUALIFIERS: COPD type: unspecified COPD Qualified Code(s): J44.9 - Chronic obstructive pulmonary disease, unspecified (4) Hypertension: CODE(S): I10 - Essential (primary) hypertension QUALIFIERS: Hypertension type: primary hypertension Qualified Code(s): I10 - Essential (primary) hypertension (5) 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: CODE(S): I83.019 - Varicose veins of right lower extremity with ulcer of unspecified site; L97.919 - Non-pressure chronic ulcer of unspecified part of right lower leg with unspecified severity (6) Nonhealing ulcer of left lower extremity with fat layer exposed: CODE(S): L97.922 - Non-pressure chronic ulcer of unspecified part of left lower leg with fat layer exposed (7) Nonhealing ulcer of right lower extremity with fat layer exposed: CODE(S): L97.912 - Non-pressure chronic ulcer of unspecified part of right lower leg with fat layer exposed (8) Supplemental oxygen dependent: CODE(S): Z99.81 - Dependence on supplemental oxygen PLAN: Plan Debridement performed today in clinic as annotated above. At home wound-care instructions: Epifix #10 applied to her right posterior LE ulcer today per clerk of scales guidelines using 100% of product, rehydrated with hydrogel and covered with adaptic touch and secured with steristrips. She will not change the dressing on this for 1 week unless there is drainage and then would change secondary gauze dressing. Reapply hydrogel daily. Off-loading: The patient was instructed to avoid pressure and friction on the affected areas. Reposition every 2 hours at minimum. Avoid prolonged standing and/or dangling of legs. When seated, feet should be elevated at chest level. Frequent ambulation is encouraged. Diet: Patient encouraged to increase protein intake while taking caution to avoid high carbohydrate and/or sugar intake. Labs/cultures/imaging: Vascular testing ordered to evaluate for arterial and venous disease showed incompetence of accessory saphenous veins b/l and normal arterial studies except decreased at level of great toe. Follow-up: Return in 1 week for wound care follow up. Return sooner or report to the emergency room should symptoms worsen, or new symptoms arise. Note: [employer] speech recognition veterinary virus serum inspector software was used to create portions of this document. Sound-alike and misspelled words, as well as other veterinary virus serum inspector errors may be contained in the documentation.
[2022-10-24 09:16] VITALS: BP 166/71; PULSE 60; RESP 18; TEMP 36.1; BMI 34.7
--- NOTE | 2022-10-24 15:09 | PCM.WC.PN ---
History of Present Illness Date of Service: 10/24/22 Chief Complaint: Venous leg ulcer left lower extremity and right lower extremity History of Wound: This is a 76-year-old white female who presents to the wound healing center today with complaint of nonhealing ulceration of her right and left lower extremities. She has a past medical history significant for chronic hypoxia on supplemental O2, COPD, type 2 diabetes mellitus, CHF, and osteoarthritis of the bilateral knees and GERD. The patient states that her wounds initially occurred after scratching the back of her leg on something almost a month ago. She saw her PCP last week and was started on Cephalexin QID x 10 days. She was 2 days left of treatment. She has not had any improvement in her pain or ulcers since starting the antibiotic. She has been applying triple antibiotic ointment covering with gauze for the last few days but had been using hydrogel and nonadherent dressings prior to that. She states that she has not been utilizing any compression due to pain but has been elevating her legs more frequently and using a wedge pillow. She denies any systemic or localized signs of infection at this time. Denies any prior cultures being taken. 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 Subjective Subjective Kandi tolerated Epifix treatment well. Left posterior calf improved in size. She remains healed today on her right calf. Denies fever, chills, increased drainage, increased pain or increased erythema. Objective Data Objective Data Vital Signs: Vital Signs Temp Pulse Resp BP O2 Del Method O2 Flow Rate 97 F L 60 18 166/71 H Nasal Cannula 3 10/24/22 09:16 10/24/22 09:16 10/24/22 09:16 10/24/22 09:16 10/24/22 09:16 10/17/22 09:14 Oxygen Flow Rate (L/min) 3 Oxygen Delivery Method Nasal Cannula Weight: 91.777 kg Body Mass Index (BMI) 34.7 Physical Exam Const alert, oriented x3 and no apparent distress General Appearance: cooperative and comfortable HEENT normocephalic and head/scalp atraumatic Resp normal respiratory effort Effort and Inspection: able to speak in complete sentences Cardio regular rate and regular rhythm Skin Wounds: wounds noted Wound Narrative: as in clinical panel Psych mental status grossly normal, thought process normal, cooperative and affect normal Debridement Note Debridement Note Wound debrided: Left posterior LE Laterality: Left Type of Debridement: Excisional debridement Anesthesia Used: 4% Lidocaine Solution, 5% Lidocaine Gel and Cetacaine Depth: Down to and including healthy tissue and in the subcutaneous layer Percentage of wound debrided: 100 Instrument Used: 5mm curette Tissue Removed: Yellow slough, devitalized tissue Severity: Fat Layer Exposed Amount of bleeding with debridement: Mild Bleeding Controlled with: Compression and gauze Patient tolerated procedure: Patient tolerated procedure well Post-Debridement Measurements and Additional Note: Post-Debridement Measurements/Treatment - Nurse 1 - General Ulcer Assessment Start: 10/10/22 08:56 Freq: Status: Active Protocol: [employer] Activity Type Activity Date Activity User E-sign Co-sign Detail Recorded Client Recorded Date Recorded By Document 10/10/22 08:56 [id number] 10/10/22 09:10 JF Document 10/17/22 09:14 RB [id number] 10/17/22 09:22 RB Document 10/24/22 09:16 [facility] [id number] 10/24/22 09:24 BMF 10/10/22 10/17/22 10/24/22 08:56 09:14 09:16 - Today's Visit Information Type of service Follow-up Visit Follow-up Visit Follow-up Visit (Physician/MASS SPECTROMETRY MANAGER (Physician/MASS SPECTROMETRY MANAGER (Physician/MASS SPECTROMETRY MANAGER ) ) ) Arrival Mode Ambulatory, Ambulatory, Ambulatory, Walker Walker Walker Transfer Assistance None None Accompanied by Daughter antonio Patient Identification Verified (Name & Yes Yes Yes ) Patient Requires Transmission-Based No No No Precautions Height and Weight Body Mass Index (BMI) 34.7 34.7 34.7 BMI Classification Obese Obese Obese Vital Signs Temperature (97.8 F-99.1 F) 97.3 F L 96.7 F L 97 F L Temperature Source Temporal Temporal Temporal Pulse Rate (60-100) 64 76 60 Pulse Location Monitor Monitor Monitor Respiratory Rate (12-18) 16 18 18 Respiratory rate source Observation Observation Observation Oxygen Delivery Method Nasal Cannula O2 L/MIN (L/min) 3 Blood Pressure (90/60-120/80) 141/74 H 148/70 H 166/71 H Blood Pressure Mean (mm Hg) 96 96 102 Source Monitor Monitor Monitor Position Semi-Fowlers Semi-Fowlers Sitting Blood Pressure Location Left Arm Left Arm Right Arm History Since Last Visit- (Skip if this is Patient's initial visit) Have you changed medications since your No No No last visit? Any new allergies or adverse reactions No No No Had a fall/change in ADL's that may No No No increase risk of falls Signs or symptoms of abuse and/or No No No neglect since last visit Have you been in the hospital since your No No No last visit? Has dressing in place as prescribed Yes Yes Yes Has compression in place as prescribed Yes Yes Has offloadiing in place as prescribed N/A No Experienced any changes in pain level or No No management Left Footwear Regular Shoe Regular Shoe Right Footwear Regular Shoe Regular Shoe Pain Scale: 0-10 Numeric Is Patient Pain Free? Yes Yes Yes WC - Nurse 1 - General Ulcer Measurement Start: 10/10/22 08:56 Freq: Status: Active Protocol: Activity Type Activity Date Activity User E-sign Co-sign Detail Recorded Client Recorded Date Recorded By Document 10/10/22 08:56 [id number] 10/10/22 09:10 Document 10/17/22 09:14 RB [id number] 10/17/22 09:22 RB Document 10/24/22 09:16 [facility] [id number] 10/24/22 09:24 [facility] 10/10/22 10/17/22 10/24/22 08:56 09:14 09:16 Wound Center Nurse 1 #2 R POST LE -Combined with other wound No No No -Current Size (cm) - Length 2.2 2.1 1.7 -Current Size (cm) - Width 3.1 2.9 2.3 -Current Size (cm) - Depth 0.1 0.1 0.2 -Total Square Cm 6.82 6.09 3.91 -Date of Last Picture (Recall this 10/24/22 field) -Photo Taken Yes Yes Yes -Epithelialization Medium 34-66% Small 1-33% -Tunneling No No No -Undermining/Tunneling No No No -Circular Undermining No No No -Exudate Amt Medium Medium Medium -Exudate Type Serosanguineous Serosanguineous Serosanguineous -Wound Margin Flat & Intact Distinct, Distinct, Outline Outline Attached Attached -Granulation Amt Large (67-100%) Medium (34-66%) Large (67-100%) -Granulation Quality [place] -Slough/Fibrin Yes Yes No -Necrosis Amt Small (1-33%) Large (67-100%) None Present (0 %) -Necrotic Tissue Type Adherent Slough Adherent Slough -Structure Exposed N/A N/A -Texture (Leticia-wound Skin Appearance) Assessed, Assessed Assessed, Scarring Scarring -Moisture (Leticia-wound Skin Appearance) Assessed,Dry/ Assessed Assessed Scaly -Color (Leticia-wound Skin Appearance) Assessed Assessed, Erythema -Temperature (Leticia-wound Skin No Abnormality No Abnormality No Abnormality Appearance) (Pt Warm) (Pt Warm) (Pt Warm) -Tenderness on Palpation (Leticia-wound No No Yes Skin Appearance) -Ulcer Cleansing Wound Cleanser Wound Cleanser Soap and Water -Foul Odor after Cleansing No No No -Anesthetic Used 5% Lidocaine 5% Lidocaine 5% Lidocaine Gel Gel Gel Lower Limb Edema Present Yes Yes Yes Right Calf (cm) 42.5 39.4 Right Ankle (cm) 24.5 23.1 Left Calf (cm) 38.5 Left Ankle (cm) 23.0 WC - Nurse 2 - General Ulcer CM Notes Start: 10/10/22 08:56 Freq: Status: Active Protocol: Activity Type Activity Date Activity User E-sign Co-sign Detail Recorded Client Recorded Date Recorded By Document 10/10/22 09:38 MW [id number] 10/10/22 09:51 MW Document 10/17/22 09:28 MW [id number] 10/17/22 09:39 MW Document 10/24/22 09:41 [id number] 10/24/22 09:45 JF 10/10/22 10/17/22 10/24/22 09:38 09:28 09:41 Wound Center Nurse 2 #2 R POST LE -Time 09:39 09:32 09:41 -Correct Patient Yes Yes Yes -Correct Side, Site, Position Yes Yes Yes -Correct Procedure Yes Yes Yes -Procedure Performed Yes Yes Yes -Type of Procedure Debridement Debridement Debridement -Clinical Debridement Subcutaneous Subcutaneous Subcutaneous -Tissue Removed Subcutaneous Subcutaneous Subcutaneous -Post Debridement (cm) - Length 2.0 1.7 1.8 -Post Debridement (cm) - Width 3.0 2.9 2.6 -Post Debridement (cm) - Depth 0.1 0.1 0.1 -Total Square (Post) (cm) 6.00 4.93 4.68 -Area of Debridement (cm) - Length 2.0 1.7 1.8 -Area of Debridement (cm) - Width 3.0 2.9 2.6 -Total Square (Area) (cm) 6.00 4.93 4.68 -Tunneling No No No -Undermining/Tunneling No No No -Circular Undermining No No No -Wound/Ulcer Outcome Not Healed Not Healed Not Healed -Ulcer Cleansing Rinsed/ Rinsed/ Rinsed/ Irrigated with Irrigated with Irrigated with Saline Saline Saline -Foul Odor after Cleansing No No No -Bioengineered Tissue No Yes No -Type of Bioengineered Tissue Epifix Mesh Epifix -Expiration Date 07/09/27 04/08/27 -Product Lot Number [id number] -Percent Used 100 100 -Lot number of Saline Used [id number] -Bleeding Controlled with Pressure Pressure Pressure -Treatment Response Procedure Procedure Procedure Tolerated Well Tolerated Well Tolerated Well -Offloading No No No -Debridement - Subq, 1st 20sq cm No No Yes -Apply Skin Sub - 1st 25 sq cm - Legs 1 1 -Epifix (per sq cm) 4 -Epifix Mesh (per sq cm) 11 Pain Scale: 0-10 Numeric Is Patient Pain Free? Yes Yes Yes WC - Nurse 3 - General Ulcer D/C NN Start: 10/10/22 08:56 Freq: Status: Active Protocol: Activity Type Activity Date Activity User E-sign Co-sign Detail Recorded Client Recorded Date Recorded By Document 10/10/22 10:24 [id number] 10/10/22 10:24 JF Document 10/17/22 09:49 RB [id number] 10/17/22 09:50 RB Document 10/24/22 09:56 RB [id number] 10/24/22 09:58 RB 10/10/22 10/17/22 10/24/22 10:24 09:49 09:56 Wound Care Center Nurse 3 #2 R POST LE -Ulcer Cleansing Rinsed/ Rinsed/ Irrigated with Irrigated with Saline Saline -Foul Odor after Cleansing No -Primary Dressing Applied C Hydrogel ($) C Hydrogel ($), Mepilex Border -Primary Dressing Covered/Secured with Dry Gauze & Dry Gauze,Dry Roll Gauze, Gauze & Roll Secured with Gauze,Secured Tape with Tape -Mepilex Border 1 Right -Stockings Yes: circaid -Other circaids bilat circaid Treatment Response Procedure Procedure Tolerated Well Tolerated Well Pain Scale: 0-10 Numeric Is Patient Pain Free? Yes Yes Yes WC - Visit Discharge Discharge Condition Stable Stable Ambulatory Status Ambulatory Ambulatory, Ambulatory Walker Transportation Private Auto Private Auto Private Auto Medication Reconcilliation completed & Yes No No provided to patient/care provider Clinical Summary of Care Provided Yes Yes Yes Assessment/Plan Assessment/Plan (1) Venous stasis ulcer of left lower leg with edema of left lower leg: CODE(S): I83.029 - Varicose veins of left lower extremity with ulcer of unspecified site; I83.892 - Varicose veins of left lower extremity with other complications; L97.929 - Non-pressure chronic ulcer of unspecified part of left lower leg with unspecified severity; R60.9 - Edema, unspecified (2) Diabetes mellitus: CODE(S): E11.9 - Type 2 diabetes mellitus without complications QUALIFIERS: Diabetes mellitus type: type 2 Diabetes mellitus group home insulin use: without group home use Diabetes mellitus complication status: with neurologic complications Diabetes mellitus complication detail: with polyneuropathy Qualified Code(s): E11.42 - Type 2 diabetes mellitus with diabetic polyneuropathy (3) Chronic obstructive pulmonary disease: CODE(S): J44.9 - Chronic obstructive pulmonary disease, unspecified QUALIFIERS: COPD type: unspecified COPD Qualified Code(s): J44.9 - Chronic obstructive pulmonary disease, unspecified (4) Hypertension: CODE(S): I10 - Essential (primary) hypertension QUALIFIERS: Hypertension type: primary hypertension Qualified Code(s): I10 - Essential (primary) hypertension (5) 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: CODE(S): I83.019 - Varicose veins of right lower extremity with ulcer of unspecified site; L97.919 - Non-pressure chronic ulcer of unspecified part of right lower leg with unspecified severity (6) Nonhealing ulcer of left lower extremity with fat layer exposed: CODE(S): L97.922 - Non-pressure chronic ulcer of unspecified part of left lower leg with fat layer exposed (7) Nonhealing ulcer of right lower extremity with fat layer exposed: CODE(S): L97.912 - Non-pressure chronic ulcer of unspecified part of right lower leg with fat layer exposed (8) Supplemental oxygen dependent: CODE(S): Z99.81 - Dependence on supplemental oxygen PLAN: Plan Debridement performed today in clinic as annotated above. At home wound-care instructions: Will have her apply hydrogel and cover with silicone foam bordered dressing every other day. Off-loading: The patient was instructed to avoid pressure and friction on the affected areas. Reposition every 2 hours at minimum. Avoid prolonged standing and/or dangling of legs. When seated, feet should be elevated at chest level. Frequent ambulation is encouraged. Diet: Patient encouraged to increase protein intake while taking caution to avoid high carbohydrate and/or sugar intake. Labs/cultures/imaging: Vascular testing ordered to evaluate for arterial and venous disease showed incompetence of accessory saphenous veins b/l and normal arterial studies except decreased at level of great toe. Follow-up: Return in 2 weeks for wound care follow up. Return sooner or report to the emergency room should symptoms worsen, or new symptoms arise. Note: [employer] speech recognition carbon capture power plant engineer software was used to create portions of this document. Sound-alike and misspelled words, as well as other carbon capture power plant engineer errors may be contained in the documentation.
== END 2022-11-05 23:59 | disposition home or self-care (01) ==
LOC: WC 09:00
PROVIDERS: PCP Family Medicine; Referring Provider Family Medicine; Visit Provider Family Medicine
DX: I83.018 Varicose veins of right lower extremity with ulcer other part of lower leg (principal); L97.822 Non-pressure chronic ulcer of other part of left lower leg with fat layer exposed; J44.9 Chronic obstructive pulmonary disease, unspecified; I11.0 Hypertensive heart disease with heart failure; I50.9 Heart failure, unspecified; E11.9 Type 2 diabetes mellitus without complications; M17.0 Bilateral primary osteoarthritis of knee; K21.9 Gastro-esophageal reflux disease without esophagitis; Z99.81 Dependence on supplemental oxygen; Z79.84 Long term (current) use of oral hypoglycemic drugs; Z79.1 Long term (current) use of non-steroidal anti-inflammatories (NSAID); Z79.899 Other long term (current) drug therapy
CPT/HCPCS: 11042; 15271; Q4186

== ENCOUNTER 2022-12-05 09:00 | Outpatient (RCR) | payer MEDICARE, SELFPAY ==
[2022-11-06 00:33] VITALS: BP 166/71; PULSE 60; RESP 18; TEMP 36.1; BMI 34.7
[2022-11-07 09:25] VITALS: BP 157/70; PULSE 68; TEMP 35.9; BMI 34.7
--- NOTE | 2022-11-07 13:37 | PN.PCM_ITS ---
History of Present Illness Date of Service: 11/07/22 Chief Complaint: Venous leg ulcer left lower extremity History of Wound: This is a 76-year-old white female who presents to the wound healing center today with complaint of nonhealing ulceration of her right and left lower extremities. She has a past medical history significant for chronic hypoxia on supplemental O2, COPD, type 2 diabetes mellitus, CHF, and osteoarthritis of the bilateral knees and GERD. The patient states that her wounds initially occurred after scratching the back of her leg on something almost a month ago. She saw her PCP last week and was started on Cephalexin QID x 10 days. She was 2 days left of treatment. She has not had any improvement in her pain or ulcers since starting the antibiotic. She has been applying triple antibiotic ointment covering with gauze for the last few days but had been using hydrogel and nonadherent dressings prior to that. She states that she has not been utilizing any compression due to pain but has been elevating her legs more frequently and using a wedge pillow. She denies any systemic or localized signs of infection at this time. Denies any prior cultures being taken. 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 Subjective Subjective Kandi tolerated Epifix treatment well. Left posterior calf improved in size. She remains healed today on her right calf. Denies fever, chills, increased drainage, increased pain or increased erythema. Objective Data Objective Data Vital Signs: Vital Signs Temp Pulse Resp BP O2 Del Method O2 Flow Rate 96.7 F L 68 18 157/70 H Nasal Cannula 2 11/07/22 09:25 11/07/22 09:25 11/06/22 00:33 11/07/22 09:25 11/07/22 09:25 11/07/22 09:25 Oxygen Flow Rate (L/min) 2 Oxygen Delivery Method Nasal Cannula Weight: 91.777 kg Body Mass Index (BMI) 34.7 Physical Exam Const alert, oriented x3 and no apparent distress General Appearance: cooperative and comfortable HEENT normocephalic and head/scalp atraumatic Resp normal respiratory effort Effort and Inspection: able to speak in complete sentences Cardio regular rate and regular rhythm Skin Wounds: wounds noted Wound Narrative: as in clinical panel Psych mental status grossly normal, thought process normal, cooperative and affect normal Debridement Note Debridement Note Wound debrided: Left posterior LE Laterality: Left Type of Debridement: Excisional debridement Anesthesia Used: 4% Lidocaine Solution, 5% Lidocaine Gel and Cetacaine Depth: Down to and including healthy tissue and in the subcutaneous layer Percentage of wound debrided: 100 Instrument Used: 5mm curette Tissue Removed: Yellow slough, devitalized tissue Severity: Fat Layer Exposed Amount of bleeding with debridement: Mild Bleeding Controlled with: Compression and gauze Patient tolerated procedure: Patient tolerated procedure well Post-Debridement Measurements and Additional Note: Post-Debridement Measurements/Treatment WC - Nurse 1 - General Ulcer Assessment Start: 11/07/22 09:24 Freq: Status: Active Protocol: [facility] Activity Type Activity Date Activity User E-sign Co-sign Detail Recorded Client Recorded Date Recorded By Document 11/07/22 09:25 FAIZAN [id number] 11/07/22 09:27 FAIZAN 11/07/22 09:25 WC - Today's Visit Information Type of service Follow-up Visit (Physician/PLASTIC PROCESS TECHNICIAN ) Arrival Mode Ambulatory Patient Identification Verified (Name & No ) Patient Requires Transmission-Based No Precautions Height and Weight Body Mass Index (BMI) 34.7 BMI Classification Obese Vital Signs Temperature (97.8 F-99.1 F) 96.7 F L Temperature Source Temporal Pulse Rate (60-100) 68 Pulse Location Monitor Oxygen Delivery Method Nasal Cannula O2 L/MIN (L/min) 2 Blood Pressure (90/60-120/80) 157/70 H Blood Pressure Mean (mm Hg) 99 Source Monitor History Since Last Visit- (Skip if this is Patient's initial visit) Have you changed medications since your No last visit? Any new allergies or adverse reactions No Had a fall/change in ADL's that may No increase risk of falls Signs or symptoms of abuse and/or No neglect since last visit Have you been in the hospital since your No last visit? Has dressing in place as prescribed Yes Has compression in place as prescribed N/A Has offloadiing in place as prescribed N/A Experienced any changes in pain level or No management Left Footwear Regular Shoe Right Footwear Regular Shoe Pain Scale: 0-10 Numeric Is Patient Pain Free? Yes DASH - Nurse 1 - General Ulcer Measurement Start: 11/07/22 09:24 Freq: Status: Active Protocol: Activity Type Activity Date Activity User E-sign Co-sign Detail Recorded Client Recorded Date Recorded By Document 11/07/22 09:25 AK [id number] 11/07/22 09:27 AK 11/07/22 09:25 Wound Center Nurse 1 #2 R POST LE -Current Size (cm) - Length 1.2 -Current Size (cm) - Width 2.5 -Current Size (cm) - Depth 0.1 -Total Square Cm 3.00 -Photo Taken Yes -Tunneling No -Undermining/Tunneling No -Circular Undermining No -Change in Wound Grade/Stage No -Exudate Amt Medium -Exudate Type Serosanguineous -Wound Margin Distinct, Outline Attached -Granulation Amt Large (67-100%) -Granulation Quality [place] -Slough/Fibrin Yes -Necrosis Amt Small (1-33%) -Structure Exposed N/A -Texture (Leticia-wound Skin Appearance) Assessed, Scarring -Moisture (Leticia-wound Skin Appearance) No Abnormality, Assessed -Color (Leticia-wound Skin Appearance) No Abnormality, Assessed -Temperature (Leticia-wound Skin No Abnormality Appearance) (Pt Warm) -Tenderness on Palpation (Leticia-wound No Skin Appearance) -Ulcer Cleansing Rinsed/ Irrigated with Saline -Foul Odor after Cleansing No -Anesthetic Used 5% Lidocaine Gel Point of measurement (cm from the medial 39 instep) Point of Measurement (cm from the medial 23 instep) WC - Nurse 2 - General Ulcer CM Notes Start: 11/07/22 09:24 Freq: Status: Active Protocol: Activity Type Activity Date Activity User E-sign Co-sign Detail Recorded Client Recorded Date Recorded By Document 11/07/22 10:03 MW [id number] 11/07/22 10:07 MW 11/07/22 10:03 Wound Center Nurse 2 #2 R POST LE -Time 10:04 -Correct Patient Yes -Correct Side, Site, Position Yes -Correct Procedure Yes -Procedure Performed Yes -Type of Procedure Debridement -Clinical Debridement Subcutaneous -Tissue Removed Subcutaneous -Post Debridement (cm) - Length 1.2 -Post Debridement (cm) - Width 2.4 -Post Debridement (cm) - Depth 0.1 -Total Square (Post) (cm) 2.88 -Area of Debridement (cm) - Length 1.2 -Area of Debridement (cm) - Width 2.4 -Total Square (Area) (cm) 2.88 -Tunneling No -Undermining/Tunneling No -Circular Undermining No -Wound/Ulcer Outcome Not Healed -Ulcer Cleansing Rinsed/ Irrigated with Saline -Foul Odor after Cleansing No -Bioengineered Tissue No -Bleeding Controlled with Pressure -Treatment Response Procedure Tolerated Well -Offloading No -Debridement - Subq, 1st 20sq cm Yes Pain Scale: 0-10 Numeric Is Patient Pain Free? Yes Assessment/Plan Assessment/Plan (1) Venous stasis ulcer of left lower leg with edema of left lower leg: CODE(S): I83.029 - Varicose veins of left lower extremity with ulcer of unspecified site; I83.892 - Varicose veins of left lower extremity with other complications; L97.929 - Non-pressure chronic ulcer of unspecified part of left lower leg with unspecified severity; R60.9 - Edema, unspecified (2) Diabetes mellitus: CODE(S): E11.9 - Type 2 diabetes mellitus without complications QUALIFIERS: Diabetes mellitus type: type 2 Diabetes mellitus penitentiary insulin use: without penitentiary use Diabetes mellitus complication status: with neurologic complications Diabetes mellitus complication detail: with polyneuropathy Qualified Code(s): E11.42 - Type 2 diabetes mellitus with diabetic polyneuropathy (3) Chronic obstructive pulmonary disease: CODE(S): J44.9 - Chronic obstructive pulmonary disease, unspecified QUALIFIERS: COPD type: unspecified COPD Qualified Code(s): J44.9 - Chronic obstructive pulmonary disease, unspecified (4) Hypertension: CODE(S): I10 - Essential (primary) hypertension QUALIFIERS: Hypertension type: primary hypertension Qualified Co de(s): I10 - Essential (primary) hypertension (5) 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: CODE(S): I83.019 - Varicose veins of right lower extremity with ulcer of unspecified site; L97.919 - Non-pressure chronic ulcer of unspecified part of right lower leg with unspecified severity (6) Nonhealing ulcer of left lower extremity with fat layer exposed: CODE(S): L97.922 - Non-pressure chronic ulcer of unspecified part of left lower leg with fat layer exposed (7) Nonhealing ulcer of right lower extremity with fat layer exposed: CODE(S): L97.912 - Non-pressure chronic ulcer of unspecified part of right lower leg with fat layer exposed (8) Supplemental oxygen dependent: CODE(S): Z99.81 - Dependence on supplemental oxygen PLAN: Plan Debridement performed today in clinic as annotated above. At home wound-care instructions: Will have her apply hydrogel and cover with silicone foam bordered dressing every other day. Off-loading: The patient was instructed to avoid pressure and friction on the affected areas. Reposition every 2 hours at minimum. Avoid prolonged standing and/or dangling of legs. When seated, feet should be elevated at chest level. Frequent ambulation is encouraged. Diet: Patient encouraged to increase protein intake while taking caution to avoid high carbohydrate and/or sugar intake. Labs/cultures/imaging: Vascular testing ordered to evaluate for arterial and venous disease showed incompetence of accessory saphenous veins b/l and normal arterial studies except decreased at level of great toe. Follow-up: Return in 2 weeks for wound care follow up. Return sooner or report to the emergency room should symptoms worsen, or new symptoms arise. Note: [employer] speech recognition paint line supervisor software was used to create portions of this document. Sound-alike and misspelled words, as well as other paint line supervisor errors may be contained in the documentation.
[2022-11-21 09:11] VITALS: BP 154/83; PULSE 66; RESP 18; TEMP 35.8; BMI 34.7
--- NOTE | 2022-11-21 10:41 | PCM.WC.PN ---
History of Present Illness Date of Service: 11/21/22 Chief Complaint: Venous leg ulcer left lower extremity History of Wound: This is a 76-year-old white female who presents to the wound healing center today with complaint of nonhealing ulceration of her right and left lower extremities. She has a past medical history significant for chronic hypoxia on supplemental O2, COPD, type 2 diabetes mellitus, CHF, and osteoarthritis of the bilateral knees and GERD. The patient states that her wounds initially occurred after scratching the back of her leg on something almost a month ago. She saw her PCP last week and was started on Cephalexin QID x 10 days. She was 2 days left of treatment. She has not had any improvement in her pain or ulcers since starting the antibiotic. She has been applying triple antibiotic ointment covering with gauze for the last few days but had been using hydrogel and nonadherent dressings prior to that. She states that she has not been utilizing any compression due to pain but has been elevating her legs more frequently and using a wedge pillow. She denies any systemic or localized signs of infection at this time. Denies any prior cultures being taken. 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 Subjective Subjective Kandi is tolerating treatment with hydrogel and adaptic well with very slow progress but still improving. Left posterior calf improved in size. She remains healed today on her right calf. Denies fever, chills, increased drainage, increased pain or increased erythema. Objective Data Objective Data Vital Signs: Vital Signs Temp Pulse Resp BP O2 Del Method O2 Flow Rate 96.5 F L 66 18 154/83 H Nasal Cannula 2 11/21/22 09:11 11/21/22 09:11 11/21/22 09:11 11/21/22 09:11 11/07/22 09:25 11/07/22 09:25 Oxygen Flow Rate (L/min) 2 Oxygen Delivery Method Nasal Cannula Weight: 91.777 kg Body Mass Index (BMI) 34.7 Physical Exam Const alert, oriented x3 and no apparent distress General Appearance: cooperative and comfortable HEENT normocephalic and head/scalp atraumatic Resp normal respiratory effort Effort and Inspection: able to speak in complete sentences Cardio regular rate and regular rhythm Skin Wounds: wounds noted Wound Narrative: as in clinical panel Psych mental status grossly normal, thought process normal, cooperative and affect normal Debridement Note Debridement Note Wound debrided: Left posterior LE Laterality: Left Type of Debridement: Excisional debridement Anesthesia Used: 4% Lidocaine Solution, 5% Lidocaine Gel and Cetacaine Depth: Down to and including healthy tissue and in the subcutaneous layer Percentage of wound debrided: 100 Instrument Used: 5mm curette Tissue Removed: Yellow slough, devitalized tissue Severity: Fat Layer Exposed Amount of bleeding with debridement: Mild Bleeding Controlled with: Compression and gauze Patient tolerated procedure: Patient tolerated procedure well Post-Debridement Measurements and Additional Note: Post-Debridement Measurements/Treatment - Nurse 1 - General Ulcer Assessment Start: 11/07/22 09:24 Freq: Status: Active Protocol: DASHVino VoloStu Activity Type Activity Date Activity User E-sign Co-sign Detail Recorded Client Recorded Date Recorded By Document 11/07/22 09:25 MI [id number] 11/07/22 09:27 AK Document 11/21/22 09:11 RB [id number] 11/21/22 09:13 RB 11/07/22 11/21/22 09:25 09:11 - Today's Visit Information Type of service Follow-up Visit Follow-up Visit (Physician/MATERIAL CUTTER (Physician/MATERIAL CUTTER ) ) Arrival Mode Ambulatory Ambulatory, Walker Transfer Assistance None Patient Identification Verified (Name & No Yes ) Patient Requires Transmission-Based No No Precautions Height and Weight Body Mass Index (BMI) 34.7 34.7 BMI Classification Obese Obese Vital Signs Temperature (97.8 F-99.1 F) 96.7 F L 96.5 F L Temperature Source Temporal Temporal Pulse Rate (60-100) 68 66 Pulse Location Monitor Monitor Respiratory Rate (12-18) 18 Respiratory rate source Observation Oxygen Delivery Method Nasal Cannula O2 L/MIN (L/min) 2 Blood Pressure (90/60-120/80) 157/70 H 154/83 H Blood Pressure Mean (mm Hg) 99 106 Source Monitor Monitor Position Semi-Fowlers Blood Pressure Location Left Arm History Since Last Visit- (Skip if this is Patient's initial visit) Have you changed medications since your No No last visit? Any new allergies or adverse reactions No No Had a fall/change in ADL's that may No No increase risk of falls Signs or symptoms of abuse and/or No No neglect since last visit Have you been in the hospital since your No No last visit? Has dressing in place as prescribed Yes Yes Has compression in place as prescribed N/A No Has offloadiing in place as prescribed N/A No Experienced any changes in pain level or No No management Left Footwear Regular Shoe Right Footwear Regular Shoe Pain Scale: 0-10 Numeric Is Patient Pain Free? Yes Yes - Nurse 1 - General Ulcer Measurement Start: 11/07/22 09:24 Freq: Status: Active Protocol: Activity Type Activity Date Activity User E-sign Co-sign Detail Recorded Client Recorded Date Recorded By Document 11/07/22 09:25 AK [id number] 11/07/22 09:27 AK Document 11/21/22 09:11 RB [id number] 11/21/22 09:13 RB 11/07/22 11/21/22 09:25 09:11 Wound Center Nurse 1 #2 R POST LE -Current Size (cm) - Length 1.2 1.1 -Current Size (cm) - Width 2.5 2 -Current Size (cm) - Depth 0.1 0.1 -Total Square Cm 3.00 2.2 -Photo Taken Yes -Tunneling No No -Undermining/Tunneling No No -Circular Undermining No No -Change in Wound Grade/Stage No -Exudate Amt Medium Medium -Exudate Type Serosanguineous Serosanguineous -Wound Margin Distinct, Distinct, Outline Outline Attached Attached -Granulation Amt Large (67-100%) Medium (34-66%) -Granulation Quality [place] -Slough/Fibrin Yes Yes -Necrosis Amt Small (1-33%) Medium (34-66%) -Necrotic Tissue Type Adherent Slough -Structure Exposed N/A N/A -Texture (Leticia-wound Skin Appearance) Assessed, Assessed Scarring -Moisture (Leticia-wound Skin Appearance) No Abnormality, Assessed Assessed -Color (Leticia-wound Skin Appearance) No Abnormality, Assessed Assessed -Temperature (Leticia-wound Skin No Abnormality No Abnormality Appearance) (Pt Warm) (Pt Warm) -Tenderness on Palpation (Leticia-wound No No Skin Appearance) -Ulcer Cleansing Rinsed/ Wound Cleanser Irrigated with Saline -Foul Odor after Cleansing No No -Anesthetic Used 5% Lidocaine 5% Lidocaine Gel Gel Point of measurement (cm from the medial 39 instep) Point of Measurement (cm from the medial 23 instep) - Nurse 2 - General Ulcer CM Notes Start: 11/07/22 09:24 Freq: Status: Active Protocol: Activity Type Activity Date Activity User E-sign Co-sign Detail Recorded Client Recorded Date Recorded By Document 11/07/22 10:03 MW [id number] 11/07/22 10:07 MW Document 11/21/22 09:34 MW [id number] 11/21/22 09:40 MW 11/07/22 11/21/22 10:03 09:34 Wound Center Nurse 2 #2 R POST LE -Time 10:04 09:36 -Correct Patient Yes Yes -Correct Side, Site, Position Yes Yes -Correct Procedure Yes Yes -Procedure Performed Yes Yes -Type of Procedure Debridement Debridement -Clinical Debridement Subcutaneous Subcutaneous -Tissue Removed Subcutaneous Subcutaneous -Post Debridement (cm) - Length 1.2 1.1 -Post Debridement (cm) - Width 2.4 2.1 -Post Debridement (cm) - Depth 0.1 0.1 -Total Square (Post) (cm) 2.88 2.31 -Area of Debridement (cm) - Length 1.2 1.1 -Area of Debridement (cm) - Width 2.4 2.1 -Total Square (Area) (cm) 2.88 2.31 -Tunneling No No -Undermining/Tunneling No No -Circular Undermining No No -Wound/Ulcer Outcome Not Healed Not Healed -Ulcer Cleansing Rinsed/ Rinsed/ Irrigated with Irrigated with Saline Saline -Foul Odor after Cleansing No No -Bioengineered Tissue No No -Bleeding Controlled with Pressure Pressure -Treatment Response Procedure Procedure Tolerated Well Tolerated Well -Offloading No No -Debridement - Subq, 1st 20sq cm Yes Yes Pain Scale: 0-10 Numeric Is Patient Pain Free? Yes Yes DASH - Nurse 3 - General Ulcer D/C NN Start: 11/07/22 09:24 Freq: Status: Active Protocol: Activity Type Activity Date Activity User E-sign Co-sign Detail Recorded Client Recorded Date Recorded By Document 11/21/22 09:41 MW [id number] 11/21/22 09:42 MW 11/21/22 09:41 Wound Care Center Nurse 3 #2 R POST LE -Ulcer Cleansing Rinsed/ Irrigated with Saline -Foul Odor after Cleansing No -Negative Pressure Wound Therapy N/A -Primary Dressing Applied Mepilex Border -Other Dressing hydrogel -Mepilex Border 1 Right -Lotion applied to leg before No compression wrap -Stockings Yes Treatment Response Procedure Tolerated Well Pain Scale: 0-10 Numeric Is Patient Pain Free? Yes Teaching: Wound Center Dressing Your Wound -Person Taught Patient -Teaching Method Discussion, Demonstration -Response to teaching Verbalize understanding WC - Visit Discharge Discharge Condition Stable Ambulatory Status Ambulatory, Wheelchair Transportation Private Auto Accompanied by daughter Medication Reconcilliation completed & No provided to patient/care provider Clinical Summary of Care Provided Yes Assessment/Plan Assessment/Plan (1) Venous stasis ulcer of left lower leg with edema of left lower leg: CODE(S): I83.029 - Varicose veins of left lower extremity with ulcer of unspecified site; I83.892 - Varicose veins of left lower extremity with other complications; L97.929 - Non-pressure chronic ulcer of unspecified part of left lower leg with unspecified severity; R60.9 - Edema, unspecified (2) Diabetes mellitus: CODE(S): E11.9 - Type 2 diabetes mellitus without complications QUALIFIERS: Diabetes mellitus complication detail: with polyneuropathy Diabetes mellitus complication status: with neurologic complications Diabetes mellitus bed bug exterminator insulin use: without skilled nursing use Diabetes mellitus type: type 2 Qualified Code(s): E11.42 - Type 2 diabetes mellitus with diabetic polyneuropathy (3) Chronic obstructive pulmonary disease: CODE(S): J44.9 - Chronic obstructive pulmonary disease, unspecified QUALIFIERS: COPD type: unspecified COPD Qualified Code(s): J44.9 - Chronic obstructive pulmonary disease, unspecified (4) Hypertension: CODE(S): I10 - Essential (primary) hypertension QUALIFIERS: Hypertension type: primary hypertension Qualified Code(s): I10 - Essential (primary) hypertension (5) 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: CODE(S): I83.019 - Varicose veins of right lower extremity with ulcer of unspecified site; L97.919 - Non-pressure chronic ulcer of unspecified part of right lower leg with unspecified severity (6) Nonhealing ulcer of left lower extremity with fat layer exposed: CODE(S): L97.922 - Non-pressure chronic ulcer of unspecified part of left lower leg with fat layer exposed (7) Nonhealing ulcer of right lower extremity with fat layer exposed: CODE(S): L97.912 - Non-pressure chronic ulcer of unspecified part of right lower leg with fat layer exposed (8) Supplemental oxygen dependent: CODE(S): Z99.81 - Dependence on supplemental oxygen PLAN: Plan Debridement performed today in clinic as annotated above. At home wound-care instructions: Will have her continue to apply hydrogel and cover with silicone foam bordered dressing every other day. Off-loading: The patient was instructed to avoid pressure and friction on the affected areas. Reposition every 2 hours at minimum. Avoid prolonged standing and/or dangling of legs. When seated, feet should be elevated at chest level. Frequent ambulation is encouraged. Diet: Patient encouraged to increase protein intake while taking caution to avoid high carbohydrate and/or sugar intake. Labs/cultures/imaging: Vascular testing ordered to evaluate for arterial and venous disease showed incompetence of accessory saphenous veins b/l and normal arterial studies except decreased at level of great toe. Follow-up: Return in 2 weeks for wound care follow up. Return sooner or report to the emergency room should symptoms worsen, or new symptoms arise. Note: [employer] speech recognition deli manager software was used to create portions of this document. Sound-alike and misspelled words, as well as other deli manager errors may be contained in the documentation.
--- NOTE | 2022-12-05 09:43 | WC ---
Rechecked BP with manual cuff. Bp readings on right arm was 90/48 and left 90/56. Patient is on 3L of oxygen and pulse OX on 89-97%. Pulse 87. Patient and her daughter encouraged to call PCP for lower BP and to increase her fluids per Dr Magallon.
[2022-12-05 11:03] VITALS: BP 100/56; PULSE 86; TEMP 36.4; BMI 34.7
--- NOTE | 2022-12-05 13:12 | PCM.WC.PN ---
History of Present Illness Date of Service: 12/05/22 Chief Complaint: Venous leg ulcer left lower extremity History of Wound: This is a 76-year-old white female who presents to the wound healing center today with complaint of nonhealing ulceration of her right and left lower extremities. She has a past medical history significant for chronic hypoxia on supplemental O2, COPD, type 2 diabetes mellitus, CHF, and osteoarthritis of the bilateral knees and GERD. The patient states that her wounds initially occurred after scratching the back of her leg on something almost a month ago. She saw her PCP last week and was started on Cephalexin QID x 10 days. She was 2 days left of treatment. She has not had any improvement in her pain or ulcers since starting the antibiotic. She has been applying triple antibiotic ointment covering with gauze for the last few days but had been using hydrogel and nonadherent dressings prior to that. She states that she has not been utilizing any compression due to pain but has been elevating her legs more frequently and using a wedge pillow. She denies any systemic or localized signs of infection at this time. Denies any prior cultures being taken. 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 Subjective Subjective Kandi is tolerating treatment with hydrogel and adaptic well with very slow progress but still improving. Left posterior calf improved in size. She remains healed today on her right calf. Denies fever, chills, increased drainage, increased pain or increased erythema. Objective Data Objective Data Vital Signs: Vital Signs Temp Pulse Resp BP O2 Del Method O2 Flow Rate 97.6 F L 86 18 100/56 L Nasal Cannula 2 12/05/22 11:03 12/05/22 11:03 11/21/22 09:11 12/05/22 11:03 11/07/22 09:25 11/07/22 09:25 Oxygen Flow Rate (L/min) 2 Oxygen Delivery Method Nasal Cannula Weight: 91.777 kg Body Mass Index (BMI) 34.7 Physical Exam Const alert, oriented x3 and no apparent distress General Appearance: cooperative and comfortable HEENT normocephalic and head/scalp atraumatic Resp normal respiratory effort Effort and Inspection: able to speak in complete sentences Cardio regular rate and regular rhythm Skin Wounds: wounds noted Wound Narrative: as in clinical panel Psych mental status grossly normal, thought process normal, cooperative and affect normal Debridement Note Debridement Note Wound debrided: Left posterior LE Laterality: Left Type of Debridement: Excisional debridement Anesthesia Used: 4% Lidocaine Solution, 5% Lidocaine Gel and Cetacaine Depth: Down to and including healthy tissue and in the subcutaneous layer Percentage of wound debrided: 100 Instrument Used: 5mm curette Tissue Removed: Yellow slough, devitalized tissue Severity: Fat Layer Exposed Amount of bleeding with debridement: Mild Bleeding Controlled with: Compression and gauze Patient tolerated procedure: Patient tolerated procedure well Post-Debridement Measurements and Additional Note: Post-Debridement Measurements/Treatment - Nurse 1 - General Ulcer Assessment Start: 11/07/22 09:24 Freq: Status: Active Protocol: CHING Activity Type Activity Date Activity User E-sign Co-sign Detail Recorded Client Recorded Date Recorded By Document 11/07/22 09:25 AK [id number] 11/07/22 09:27 AK Document 11/21/22 09:11 RB [id number] 11/21/22 09:13 RB Document 12/05/22 11:03 AK [id number] 12/05/22 11:05 AK 11/07/22 11/21/22 12/05/22 09:25 09:11 11:03 - Today's Visit Information Type of service Follow-up Visit Follow-up Visit Follow-up Visit (Physician/SERVICE OBSERVER (Physician/SERVICE OBSERVER (Physician/SERVICE OBSERVER ) ) ) Arrival Mode Ambulatory Ambulatory, Ambulatory, Walker Wheelchair Transfer Assistance None Patient Identification Verified (Name & No Yes Yes ) Patient Requires Transmission-Based No No No Precautions Height and Weight Body Mass Index (BMI) 34.7 34.7 34.7 BMI Classification Obese Obese Obese Vital Signs Temperature (97.8 F-99.1 F) 96.7 F L 96.5 F L 97.6 F L Temperature Source Temporal Temporal Temporal Pulse Rate (60-100) 68 66 86 Pulse Location Monitor Monitor Monitor Respiratory Rate (12-18) 18 Respiratory rate source Observation Oxygen Delivery Method Nasal Cannula O2 L/MIN (L/min) 2 Blood Pressure (90/60-120/80) 157/70 H 154/83 H 100/56 L Blood Pressure Mean (mm Hg) 99 106 70 Source Monitor Monitor Monitor Position Semi-Fowlers Blood Pressure Location Left Arm History Since Last Visit- (Skip if this is Patient's initial visit) Have you changed medications since your No No No last visit? Any new allergies or adverse reactions No No No Had a fall/change in ADL's that may No No No increase risk of falls Signs or symptoms of abuse and/or No No No neglect since last visit Have you been in the hospital since your No No No last visit? Has dressing in place as prescribed Yes Yes Yes Has compression in place as prescribed N/A No Yes Has offloadiing in place as prescribed N/A No N/A Experienced any changes in pain level or No No No management Left Footwear Regular Shoe Regular Shoe Right Footwear Regular Shoe Regular Shoe Pain Scale: 0-10 Numeric Is Patient Pain Free? Yes Yes Yes WC - Nurse 1 - General Ulcer Measurement Start: 11/07/22 09:24 Freq: Status: Active Protocol: Activity Type Activity Date Activity User E-sign Co-sign Detail Recorded Client Recorded Date Recorded By Document 11/07/22 09:25 AK [id number] 11/07/22 09:27 AK Document 11/21/22 09:11 RB [id number] 11/21/22 09:13 RB Document 12/05/22 11:03 AK [id number] 12/05/22 11:05 AK 11/07/22 11/21/22 12/05/22 09:25 09:11 11:03 Wound Center Nurse 1 #2 R POST LE -Combined with other wound No -Current Size (cm) - Length 1.2 1.1 -Current Size (cm) - Width 2.5 2 -Current Size (cm) - Depth 0.1 0.1 -Total Square Cm 3.00 2.2 -Photo Taken Yes -Tunneling No No -Undermining/Tunneling No No -Circular Undermining No No -Change in Wound Grade/Stage No -Exudate Amt Medium Medium -Exudate Type Serosanguineous Serosanguineous -Wound Margin Distinct, Distinct, Outline Outline Attached Attached -Granulation Amt Large (67-100%) Medium (34-66%) -Granulation Quality [place] -Slough/Fibrin Yes Yes -Necrosis Amt Small (1-33%) Medium (34-66%) -Necrotic Tissue Type Adherent Slough -Structure Exposed N/A N/A -Texture (Leticia-wound Skin Appearance) Assessed, Assessed Scarring -Moisture (Leticia-wound Skin Appearance) No Abnormality, Assessed Assessed -Color (Leticia-wound Skin Appearance) No Abnormality, Assessed Assessed -Temperature (Leticia-wound Skin No Abnormality No Abnormality Appearance) (Pt Warm) (Pt Warm) -Tenderness on Palpation (Leticia-wound No No Skin Appearance) -Ulcer Cleansing Rinsed/ Wound Cleanser Irrigated with Saline -Foul Odor after Cleansing No No -Anesthetic Used 5% Lidocaine 5% Lidocaine Gel Gel Point of measurement (cm from the medial 39 instep) Point of Measurement (cm from the medial 23 instep) WC - Nurse 2 - General Ulcer CM Notes Start: 11/07/22 09:24 Freq: Status: Active Protocol: Activity Type Activity Date Activity User E-sign Co-sign Detail Recorded Client Recorded Date Recorded By Document 11/07/22 10:03 MW [id number] 11/07/22 10:07 MW Document 11/21/22 09:34 MW [id number] 11/21/22 09:40 MW Document 12/05/22 09:37 JF [id number] 12/05/22 09:42 JF 11/07/22 11/21/22 12/05/22 10:03 09:34 09:37 Wound Center Nurse 2 #2 R POST LE -Time 10:04 09:36 09:38 -Correct Patient Yes Yes Yes -Correct Side, Site, Position Yes Yes Yes -Correct Procedure Yes Yes Yes -Procedure Performed Yes Yes Yes -Type of Procedure Debridement Debridement Debridement -Clinical Debridement Subcutaneous Subcutaneous Subcutaneous -Tissue Removed Subcutaneous Subcutaneous Subcutaneous -Post Debridement (cm) - Length 1.2 1.1 0.8 -Post Debridement (cm) - Width 2.4 2.1 1.5 -Post Debridement (cm) - Depth 0.1 0.1 0.1 -Total Square (Post) (cm) 2.88 2.31 1.20 -Area of Debridement (cm) - Length 1.2 1.1 0.8 -Area of Debridement (cm) - Width 2.4 2.1 1.5 -Total Square (Area) (cm) 2.88 2.31 1.20 -Tunneling No No No -Undermining/Tunneling No No No -Circular Undermining No No No -Wound/Ulcer Outcome Not Healed Not Healed Not Healed -Ulcer Cleansing Rinsed/ Rinsed/ Rinsed/ Irrigated with Irrigated with Irrigated with Saline Saline Saline -Foul Odor after Cleansing No No No -Bioengineered Tissue No No No -Bleeding Controlled with Pressure Pressure Pressure -Treatment Response Procedure Procedure Procedure Tolerated Well Tolerated Well Tolerated Well -Offloading No No No -Debridement - Subq, 1st 20sq cm Yes Yes Yes Pain Scale: 0-10 Numeric Is Patient Pain Free? Yes Yes Yes - Nurse 3 - General Ulcer D/C NN Start: 11/07/22 09:24 Freq: Status: Active Protocol: Activity Type Activity Date Activity User E-sign Co-sign Detail Recorded Client Recorded Date Recorded By Document 11/21/22 09:41 MW [id number] 11/21/22 09:42 MW Document 12/05/22 10:30 JF [id number] 12/05/22 10:31 JF 11/21/22 12/05/22 09:41 10:30 Wound Care Center Nurse 3 #2 R POST LE -Ulcer Cleansing Rinsed/ Rinsed/ Irrigated with Irrigated with Saline Saline -Foul Odor after Cleansing No No -Negative Pressure Wound Therapy N/A -Primary Dressing Applied Mepilex Border Mepilex Border -Other Dressing hydrogel hydrogel to ulcer -Mepilex Border 1 1 Right -Lotion applied to leg before No compression wrap -Stockings Yes Yes: Circaid Treatment Response Procedure Tolerated Well Pain Scale: 0-10 Numeric Is Patient Pain Free? Yes Yes Teaching: Wound Center Dressing Your Wound -Person Taught Patient -Teaching Method Discussion, Demonstration -Response to teaching Verbalize understanding WC - Visit Discharge Discharge Condition Stable Stable Ambulatory Status Ambulatory, Ambulatory, Wheelchair Walker Transportation Private Auto Private Auto Accompanied by daughter daughter Medication Reconcilliation completed & No Yes provided to patient/care provider Clinical Summary of Care Provided Yes Yes Assessment/Plan Assessment/Plan (1) Venous stasis ulcer of left lower leg with edema of left lower leg: CODE(S): I83.029 - Varicose veins of left lower extremity with ulcer of unspecified site; I83.892 - Varicose veins of left lower extremity with other complications; L97.929 - Non-pressure chronic ulcer of unspecified part of left lower leg with unspecified severity; R60.9 - Edema, unspecified (2) Diabetes mellitus: CODE(S): E11.9 - Type 2 diabetes mellitus without complications QUALIFIERS: Diabetes mellitus type: type 2 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 insulin use: without halfway use Diabetes mellitus complication status: with neurologic complications Diabetes mellitus complication detail: with polyneuropathy Qualified Code(s): E11.42 - Type 2 diabetes mellitus with diabetic polyneuropathy (3) Chronic obstructive pulmonary disease: CODE(S): J44.9 - Chronic obstructive pulmonary disease, unspecified QUALIFIERS: COPD type: unspecified COPD Qualified Code(s): J44.9 - Chronic obstructive pulmonary disease, unspecified (4) Hypertension: CODE(S): I10 - Essential (primary) hypertension QUALIFIERS: Hypertension type: primary hypertension Qualified Code(s): I10 - Essential (primary) hypertension (5) 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: CODE(S): I83.019 - Varicose veins of right lower extremity with ulcer of unspecified site; L97.919 - Non-pressure chronic ulcer of unspecified part of right lower leg with unspecified severity (6) Nonhealing ulcer of left lower extremity with fat layer exposed: CODE(S): L97.922 - Non-pressure chronic ulcer of unspecified part of left lower leg with fat layer exposed (7) Nonhealing ulcer of right lower extremity with fat layer exposed: CODE(S): L97.912 - Non-pressure chronic ulcer of unspecified part of right lower leg with fat layer exposed (8) Supplemental oxygen dependent: CODE(S): Z99.81 - Dependence on supplemental oxygen PLAN: Plan Debridement performed today in clinic as annotated above. At home wound-care instructions: Will have her continue to apply hydrogel and cover with silicone foam bordered dressing every other day. Off-loading: The patient was instructed to avoid pressure and friction on the affected areas. Reposition every 2 hours at minimum. Avoid prolonged standing and/or dangling of legs. When seated, feet should be elevated at chest level. Frequent ambulation is encouraged. Diet: Patient encouraged to increase protein intake while taking caution to avoid high carbohydrate and/or sugar intake. Labs/cultures/imaging: Vascular testing ordered to evaluate for arterial and venous disease showed incompetence of accessory saphenous veins b/l and normal arterial studies except decreased at level of great toe. Follow-up: Return in 2 weeks for wound care follow up. Return sooner or report to the emergency room should symptoms worsen, or new symptoms arise. Note: [email or web address] speech recognition supervisor powder and primer canning software was used to create portions of this document. Sound-alike and misspelled words, as well as other supervisor powder and primer canning errors may be contained in the documentation.
== END 2022-12-05 23:59 | disposition home or self-care (01) ==
LOC: WC 09:00
PROVIDERS: PCP Family Medicine; Referring Provider Family Medicine; Visit Provider Family Medicine
DX: I83.022 Varicose veins of left lower extremity with ulcer of calf (principal); L97.222 Non-pressure chronic ulcer of left calf with fat layer exposed; J44.9 Chronic obstructive pulmonary disease, unspecified; I11.0 Hypertensive heart disease with heart failure; I50.9 Heart failure, unspecified; E11.42 Type 2 diabetes mellitus with diabetic polyneuropathy; R60.0 Localized edema; M17.0 Bilateral primary osteoarthritis of knee; K21.9 Gastro-esophageal reflux disease without esophagitis; Z99.81 Dependence on supplemental oxygen; Z79.84 Long term (current) use of oral hypoglycemic drugs; Z79.899 Other long term (current) drug therapy
CPT/HCPCS: 11042

== ENCOUNTER 2022-12-10 17:14 | Observation (INO) | payer MEDICARE, SELFPAY ==
[2022-12-10 17:16] VITALS: BP 143/104; PULSE 74; RESP 22; TEMP 36.2; O2SAT 94
[2022-12-10 17:53] VITALS: BMI 38.0
--- NOTE | 2022-12-10 18:16 | EDS_ITS ---
HPI History of Present Illness Chief Complaint: Weakness [facility] Medical History COPD (chronic obstructive pulmonary disease) Debility Degenerative disc disease, lumbar Depression Edema of both lower extremities Essential hypertension Fibromyalgia Generalized muscle weakness GERD (gastroesophageal reflux disease) Morbid obesity with BMI of 40.0-44.9, adult Muscle spasm MICHEL (obstructive sleep apnea) Osteoarthritis Right knee pain RLS (restless legs syndrome) Type 2 diabetes mellitus without complication Venous stasis ulcer of left lower leg with edema of left lower leg Home Medications albuterol sulfate 90 mcg/actuation aerosol inhaler 2 puff inhalation Q4H PRN Sob &/Or Wheezing 10/14/18 [History Last Taken Unknown] meloxicam 7.5 mg tablet 7.5 mg PO DAILY Arthritis 10/14/18 [History Last Taken Unknown] metformin 500 mg tablet 500 mg PO DAILY Blood sugar 10/14/18 [History Last Taken Unknown] ropinirole 0.5 mg tablet 1.5 mg PO QHS Restless leg 10/14/18 [History Last Taken Unknown] Oxygen ##1 10/27/18 [History Last Taken Unknown] budesonide 0.5 mg/2 mL suspension for nebulization 1 dose inhalation BID Breathing 12/22/18 [History Last Taken Unknown] ipratropium 0.5 mg-albuterol 3 mg (2.5 mg base)/3 mL nebulization soln 1 dose inhalation 4X/DAY Breathing 12/22/18 [History Last Taken Unknown] hydrochlorothiazide 12.5 mg capsule 25 mg PO DAILY BP 07/25/21 [History Last Taken Unknown] metoprolol tartrate 50 mg tablet 50 mg PO DAILY BP 07/25/21 [History Last Taken Unknown] oxybutynin chloride 5 mg tablet 5 mg PO DAILY Bladder 07/25/21 [History Last Taken Unknown] sertraline 50 mg tablet 50 mg PO DAILY Mood 07/25/21 [History Last Taken Unknown] acetaminophen 500 mg tablet 1,000 mg (2 x 500 mg) PO Q6H PRN PRN Pain Score 1-3 #0 tabs 08/07/21 [Rx Last Taken Unknown] gabapentin 100 mg capsule 100 mg PO TIDCM 30 days #90 caps 08/07/21 [Rx Last Taken Unknown] oxycodone 5 mg tablet 5 mg PO Q4H PRN PRN Pain Score 6-10 7 days #42 tabs 08/07/21 [Rx Last Taken Unknown] sennosides 8.6 mg-docusate sodium 50 mg tablet (Stool Softener-Stimulant Laxative) 1 tab PO BID 30 days #60 tabs 08/07/21 [Rx Last Taken Unknown] cephalexin 500 mg capsule 500 mg PO Q6 #40 CAPSULES 08/30/21 [Rx Last Taken Unknown] Allergy/AdvReac Type Severity Reaction Status Date / Time lisinopril AdvReac Intermediate cough Verified 07/25/22 09:29 pregabalin [From Lyrica] AdvReac Swelling Verified 07/25/22 09:29 Family History Mother Cancer lymphoma Father COPD (chronic obstructive pulmonary disease) Cancer bone Son Heart disease ischemic heart disease Surgical History History of appendectomy History of hysterectomy History of tonsillectomy Social History household members: none Smoking Status: Former smoker how long ago did patient quit smokin.5 years ago alcohol intake: current alcohol intake frequency: holidays/special occasions only substance use type: does not use caffeine: Yes Type: coffee Number of servings: 1 EXAM Physical Exam Const Vital Signs: 12/10/22 17:16 12/10/22 17:53 12/10/22 17:53 Temperature 97.2 F L Temperature Source Temporal Pulse Rate 74 Respiratory Rate 22 H Respiratory Effort Normal Respiratory Pattern Normal Blood Pressure 143/104 H Blood Pressure Mean 117 Pulse Ox 94 Oxygen Delivery Method Nasal Cannula Nasal Cannula Oxygen Flow Rate (L/min) 3 MDM MDM MDM Narrative Medical decision making narrative: HISTORY OF PRESENT ILLNESS: 77-year-old female here for diffuse weakness. The majority of history is provided by her daughters. They states she has not began arrival at home has had 2 falls no head trauma or obvious injury. They know she is diffusely weak. Denies focal weakness. States has been treated with ciprofloxacin for UTI and has 2 pills left. Patient denies any new shortness of breath, chest pain, abdominal pain, vomiting, fever, she does note a cough occasionally REVIEW OF SYSTEMS: Pertinent positives: Diffuse weakness, cough Pertinent negatives: Syncope, focal weakness PHYSICAL EXAM: Nursing triage notes reviewed, Vital signs reviewed Constitutional: please see mdm HENT: MMM Eyes: Pupils equal round and reactive to light, Extraocular muscles intact Neck: No stridor, no JVD, full neck ROM Lungs: Clear to auscultation, No wheezing or rales. No increased work of breathing, no conversational dyspnea, no accessory muscle use, no nasal flaring. No respiratory distress noted Heart: Regular rate and rhythm, No murmurs, No rubs and No gallops, 2+ distal pulses (radial, femoral, posterior tibial) in all extremities Abdomen: Soft, there is no tenderness, rigidity, rebound or guarding, no obvious peritoneal signs, no palpable pulsatile abdominal masses, no auscultated abdominal bruit : No CVAT Extremities: No edema Neuro: No focal neurological deficits, cranial nerves II through XII intact, 5/5 strength in all extremities. Intact sensation to light touch in all extremities, 2+ reflexes bilateral patella tendons. Skin: No rash or lesions noted MEDICAL DECISION MAKING: Chief Complaint: Diffuse weakness External records reviewed: Labs from 12/05/2022 shows no leukocytosis on CBC, no significant anemia on CBC, UA had 500 leuk esterase and white blood cells concerning for UTI, there is an acute kidney injury as well Factors affecting care: COPD, hypertension, type 2 diabetes, GERD Social determinants of health: none History obtained from others: n the patient's primary care physician, Dr. Ryder was concern for GI bleed due to d increased weakness, dark urine, dark stools and abnormal labs Consults: Internal medicine ALL IMAGES (IF OBTAINED) HAVE BEEN PERSONALLY REVIEWED AND INTERPRETED BY MYSELF. EKG with normal sinus rhythm, normal axis, normal intervals, no obvious STEMI [facility] Narrative: Patient was initially hemodynamically stable, tachypneic, nontoxic-appearing. Lungs with increased work of breathing and occasional expiratory wheezes. There is no other focal cardiopulmonary normality. No focal neurologic deficits I considered the following differential diagnosis: Dehydration, anemia, electro normality, UTI, pneumonia, heart failure, COPD exacerbation, CO2 retention I obtained a broad lab and imaging work-up to further elucidate etiology patient complaints. Labs with evidence of leukocytosis and urinary inflammation. I suspect patient is having ongoing UTI. There is no signs of arrhythmia, myocardial ischemia, significant anemia, electrolyte derangement, there is no obvious CO2 retention to suggest severe COPD exacerbation. I offered admission to the patient given diffuse weakness, multiple falls, systemic inflammation, evidence of urinary inflammation for IV antibiotics, urine culture and PT OT. Discussed with hospitalist. The patient and/or family, caregivers express understanding. The patient and/or family, caregivers agrees with the plan. Total critical care time today provided was at least 0 minutes. This excludes separately billable procedures. Critical care time (if documented) is secondary to the patient having high probability of clinically significant/life threatening deterioration in the patient's condition which required my urgent intervention. Shared decision making: I will have a discussion with the patient and or visitors regarding risk/benefits of further testing or admission. They will be made aware of of the risk/benefits inherent in this decision they will be given the opportunity to voice understanding. Lab Data Labs: Laboratory Results - last 24 hr 12/10/22 12/10/22 18:30 19:12 WBC 11.1 H RBC 3.60 L Hgb 11.0 L Hct 35.9 L MCV 99.7 H MCH 30.6 MCHC 30.6 L RDW Std Deviation 46.9 H RDW Coeff of Stephenie 12.7 Plt Count 306 MPV 9.4 Immature Gran % (Auto) 4.200 H Neut % (Auto) 74.0 H Lymph % (Auto) 8.7 L [place] % (Auto) 12.0 H Eos % (Auto) 0.6 Baso % (Auto) 0.5 Absolute Neuts (auto) 8.2 H Absolute Lymphs (auto) 0.97 Nucleated RBC % 0 Sodium 135 L Potassium 3.5 Chloride 90 L Carbon Dioxide 39.0 H Anion Gap 6 BUN 30 H Creatinine 1.55 H Estim Creat Clear Calc 24.80 Est GFR (MDRD) Af Amer 42 L Est GFR (MDRD) Non-Af 35 L BUN/Creatinine Ratio 19.4 Glucose 107 H Lactic Acid 1.2 Calcium 9.6 Troponin I High Sens 11 B-Natriuretic Peptide 113.3 H Urine Color Yellow Urine Clarity Clear Urine pH 7.0 Ur Specific Corb[place] 1.010 Urine Protein 30 H Urine Glucose (UA) Normal Urine Ketones 15 H Urine Occult Blood 50 H Urine Nitrite Negative Urine Bilirubin Negative Urine Urobilinogen Normal Ur Leukocyte Esterase 100 H Urine RBC 0-5 SEEN Urine WBC 0-5 SEEN Ur Squamous Epith Cells 0-5 SEEN Urine Bacteria 0 SEEN Urine Mucus 0 SEEN ABG Data ABG results: ABG 12/10/22 18:34 Specimen Type SANTA VBG pH 7.45 H VBG pO2 37 VBG HCO3 39 H VBG Total CO2 40 H VBG O2 Sat (Calc) 71 H VBG Base Excess 15 H POC Mix VBG pCO2 Pt Tmp 55.3 H O2 Delivery Device Cannula Liter Flow 3.0 Radiography Diagnostic Testing: Clinical Impression(s) from Imaging Studies Chest X-Ray 12/10/22 18:45 IMPRESSION: There are no acute findings. Electronically Signed: Willie Loeps MD at 19:19 EDT , I have personally reviewed the patient's chest x-ray. Chest x-ray is unremarkable for pulmonary edema, pneumothorax, pneumonia or focal cardiopulmonary abnormality. Discharge Plan Triage Chief Complaint: Weakness ED Provider: Hector Fields Dx/Rx/DC Orders Prescriptions: No Action (DME) Oxygen 3 liters NC Qty: 1 Dose Instruction: As directed Patient Comments: says she uses 3-4L at home Rx Instructions: As directed meloxicam 7.5 mg tablet 7.5 mg PO DAILY metformin 500 mg tablet 500 mg PO DAILY albuterol sulfate 90 mcg/actuation HFA aerosol inhaler 2 puff INHALATION Q4H PRN (Reason: Sob &/Or Wheezing) ropinirole 0.5 mg tablet 1.5 mg PO QHS ipratropium-albuterol 0.5-3MG/3 solution for nebulization 1 dose inhalation 4X/DAY budesonide 0.5 MG/2ML suspension for nebulization 1 dose inhalation BID metoprolol tartrate 50 mg Tablet 50 mg PO DAILY oxybutynin chloride 5 mg Tablet 5 mg PO DAILY sertraline 50 mg Tablet 50 mg PO DAILY hydrochlorothiazide 12.5 mg capsule 25 mg PO DAILY acetaminophen 500 mg Tablet 1,000 mg PO Q6H PRN PRN (Reason: Pain Score 1-3) Qty: 0 0RF sennosides-docusate sodium [Stool Softener-Stimulant Laxat] 8.6-50 mg Tablet 1 tab PO BID 30 Days Qty: 60 0RF gabapentin 100 mg Capsule 100 mg PO TIDCM 30 Days Qty: 90 0RF oxycodone 5 mg Tablet 5 mg PO Q4H PRN PRN (Reason: Pain Score 6-10) 7 Days Qty: 42 0RF cephalexin [cephalexin] 500 MG capsule 500 mg PO Q6 Qty: 40 0RF Primary Care Provider: Roderick Ryder Referrals: Roderick Ryder MD [Primary Care Provider] -
--- NOTE | 2022-12-10 18:17 | EKG12_ITS ---
Test Reason : WEAKNESS Blood Pressure : / mmHG Vent. Rate : 071 BPM Atrial Rate : 071 BPM P-R Int : 144 ms QRS Dur : 086 ms QT Int : 398 ms P-R-T Axes : 052 047 049 degrees QTc Int : 432 ms Sinus rhythm with Premature supraventricular complexes Otherwise normal ECG Confirmed by LUTHER MISTRY, LAMIN ([id number]), publishing editor ALEIDA HARRIS ([id number]) on 12/15/2022 12:50:59 P M Referred By: Confirmed By:ALLEN SLOAN MD
[2022-12-10 18:38] LABS: Blood Gas Specimen Type VEN; O2 Delivery Device Cannula; VBG BASE EXCESS 15 mmol/L (-1.0-3.5); VBG Bicarbonate 39 mmol/L (22-26); VBG PO2 37 mmHg (25-40); VBG SO2 71 % (50-70); VBG TCO2 40 mmol/L (23-33); VBG pCO2 55.3 mmHg (41-51); VBG pH 7.45 (7.32-7.42)
--- NOTE | 2022-12-10 18:45 | RAD_ITS ---
STUDY: XR Chest 1 View 12/10/2022 6:48 PM REASON FOR EXAM: Female, 77 years old. CHEST PAIN Weakness COMPARISON: 07.24.21 TECHNIQUE: XR Chest 1 View FINDINGS: There is no demonstrated pleural abnormality. Enlarged heart size. Normal mediastinum. Normal elizabeth. Prominent appearing increased interstitial lung markings. Normal visualized pulmonary arteries. There is atherosclerotic calcification of the aortic arch with tortuosity. There are diffuse degenerative changes of the visualized thoracic spine. There is degenerative osteoarthritis of the bilateral shoulders. There is no demonstrated abnormality of the visualized soft tissue structures of the upper abdomen. RAD/Chest 1 View (Portable) IMPRESSION: There are no acute findings. Electronically Signed: Willie Lopes MD at 19:19 EDT ,
[2022-12-10 18:55] LABS: Absolute Lymphocyte Count 0.97 X10^3/uL (0.83-4.51); Absolute Neutrophil Count 8.2 X10^3/uL (2.0-7.7); Basophil# 0.06 X10^3/uL; Basophil% 0.5 % (0-1); Eosinophil# 0.07 X10^3/uL; Eosinophils% 0.6 % (0-5); Hematocrit 35.9 % (37-47); Lymphocyte # 0.97 X10^3/ul (0.83-4.51); Lymphocyte % 8.7 % (19-41); Mean Corp Hgb Conc 30.6 g/dL (32-36); Mean Corpuscular Hgb 30.6 pg (27.0-32.0); Mean Corpuscular Volume 99.7 fL (81-99); Mean Platelet Vol. 9.4 fl (6.2-12.0); Monocyte# 1.33 X10^3/uL; NRBC Flagged by Analyzer 0 % (0-5); Neutrophil # 8.22 X10^3/uL (2.7-7.7); Platelet Count 306 K/mm3 (150-450); RBC Distribution Width CV 12.7 % (11.6-14.6); RBC Distribution Width SD 46.9 fl (35.1-43.9); White Blood Count 11.1 K/mm3 (4.4-11.0)
[2022-12-10 19:10] LABS: Lactic Acid 1.2 mmol/L (0.4-1.9)
[2022-12-10 19:16] LABS: Bacteria 0 SEEN /hpf (None Seen); Mucous, Urine 0 SEEN /hpf (<or=2+)
[2022-12-10 19:17] LABS: Color, Urine Yellow (Yellow); Glucose, Dipstick Normal (Normal); Ketone-Dipstick 15 mg/dl (Negative); Leukocyte Esterase-Dipstick 100 /ul (Negative); Nitrite-Dipstick Negative (Negative); Occult Blood-Urine 50 /ul (Negative); Protein-Dipstick 30 mg/dl (Negative); Urine Bilirubin Dipstick Negative (Negative); Urine Clarity Clear (Clear); Urine Urobilinogen Normal (Normal)
[2022-12-10 19:24] LABS: Red Blood Cells-Urine 0-5 SEEN /hpf (0-5); Squamous Epithelial Cells - UA 0-5 SEEN /hpf (5-10); White Blood Cells 0-5 SEEN /hpf (0-5)
[2022-12-10 19:25] LABS: BNP,B-Type NATRIURETIC PEPTIDE 113.3 pg/mL (0-100)
[2022-12-10 19:42] LABS: Anion Gap 6 (5-15); BUN 30 mg/dL (7-18); BUN/Creat Ratio 19.4 RATIO (10-20); Calcium,Total 9.6 mg/dL (8.5-10.1); Chloride 90 mmol/L (98-107); Creatinine, Serum 1.55 mg/dL (0.55-1.02); EST Glomerular Filtration Rate 35 mL/min (>60); Est Glom Filt Rate - Afr Amer 42 mL/min (>60); Glucose 107 mg/dL (74-106); Potassium 3.5 mmol/L (3.5-5.1); Sodium Level 135 mmol/L (136-145); Troponin-I HS 11 pg/mL (3.0-54.0)
[2022-12-10] MEDS: Ceftriaxone 1 GM/50 ML BAG IV (20:37)
[2022-12-10 20:48] VITALS: BP 164/88; PULSE 81; RESP 18; TEMP 37.2; O2SAT 97
[2022-12-10 20:50] VITALS: BP 164/88; PULSE 81; RESP 16; O2SAT 94
--- NOTE | 2022-12-10 21:25 | HP.PCM.HOS_ITS ---
HPI - General General Date of Admission: 12/10/22 Date of Service: 12/10/22 Chief Complaint: WEAKNESS HPI Narrative ENZO VAZQUEZ, is a 77 F with a significant history of COPD on 2 L nasal cannula oxygen who presents emergency department with weakness. Reportedly patient has been too weak that she has been falling. Five days before presentation patient fell and laid down overnight until her daughter found her. Thereafter she fell again. Reportedly she has been so weak that she is falling. 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 Further, she reports dark stools. Also had a before presentation she complained to her PCP of polyuria for which was started on antibiotics for UTI. Additionally has been confused. Her confusion has been improving. [facility] Medical History COPD (chronic obstructive pulmonary disease) Debility Degenerative disc disease, lumbar Depression Edema of both lower extremities Essential hypertension Fibromyalgia Generalized muscle weakness GERD (gastroesophageal reflux disease) Morbid obesity with BMI of 40.0-44.9, adult Muscle spasm MICHEL (obstructive sleep apnea) Osteoarthritis Right knee pain RLS (restless legs syndrome) Type 2 diabetes mellitus without complication Venous stasis ulcer of left lower leg with edema of left lower leg Home Medications albuterol sulfate 90 mcg/actuation aerosol inhaler 2 puff inhalation Q4H PRN Sob &/Or Wheezing 10/14/18 [History Last Taken Unknown] meloxicam 7.5 mg tablet 7.5 mg PO DAILY Arthritis 10/14/18 [History Last Taken Unknown] metformin 500 mg tablet 500 mg PO DAILY Blood sugar 10/14/18 [History Last Taken 12/10/22] ropinirole 0.5 mg tablet 1.5 mg PO QHS Restless leg 10/14/18 [History Last Taken 12/09/22] Oxygen ##1 10/27/18 [History Last Taken Unknown] budesonide 0.5 mg/2 mL suspension for nebulization 1 dose inhalation BID Breathing 12/22/18 [History Last Taken 12/10/22] ipratropium 0.5 mg-albuterol 3 mg (2.5 mg base)/3 mL nebulization soln 1 dose inhalation 4X/DAY Breathing 12/22/18 [History Last Taken Unknown] hydrochlorothiazide 12.5 mg capsule 25 mg PO DAILY BP 07/25/21 [History Last Taken 12/10/22] metoprolol tartrate 50 mg tablet 50 mg PO DAILY BP 07/25/21 [History Last Taken 12/10/22] oxybutynin chloride 5 mg tablet 5 mg PO DAILY Bladder 07/25/21 [History Last Taken 12/10/22] sertraline 50 mg tablet 50 mg PO DAILY Mood 07/25/21 [History Last Taken 12/10/22] acetaminophen 500 mg tablet 1,000 mg (2 x 500 mg) PO Q6H PRN PRN Pain Score 1-3 #0 tabs 08/07/21 [Rx Last Taken Unknown] gabapentin 100 mg capsule 100 mg PO TIDCM 30 days #90 caps 08/07/21 [Rx Last Taken 12/10/22] oxycodone 5 mg tablet 5 mg PO Q4H PRN PRN Pain Score 6-10 7 days #42 tabs 08/07/21 [Rx Last Taken Unknown] sennosides 8.6 mg-docusate sodium 50 mg tablet (Stool Softener-Stimulant Laxative) 1 tab PO BID 30 days #60 tabs 08/07/21 [Rx Last Taken Unknown] cephalexin 500 mg capsule 500 mg PO Q6 #40 CAPSULES 08/30/21 [Rx Last Taken Unknown] metoprolol succinate 50 mg tablet,extended release 24 hr mg PO 12/11/22 [History Last Taken Unknown] Allergy/AdvReac Type Severity Reaction Status Date / Time lisinopril AdvReac Intermediate cough Verified 12/10/22 23:21 pregabalin [From Lyrica] AdvReac Swelling Verified 12/10/22 23:21 Family History Mother Cancer lymphoma Father COPD (chronic obstructive pulmonary disease) Cancer bone Son Heart disease ischemic heart disease Surgical History History of appendectomy History of hysterectomy History of tonsillectomy Social History household members: none Smoking Status: Former smoker how long ago did patient quit smokin.5 years ago alcohol intake: current alcohol intake frequency: holidays/special occasions only substance use type: does not use caffeine: Yes Type: coffee Number of servings: 1 ROS ROS Narrative Pertinent positives and pertinent negatives as noted in HPI. All other systems were reviewed and are negative Vital Signs Vital Signs Vital Signs: 12/10/22 17:16 12/10/22 17:53 12/10/22 17:53 Temperature 97.2 F L Temperature Source Temporal Pulse Rate 74 Respiratory Rate 22 H Respiratory Effort Normal Respiratory Pattern Normal Blood Pressure 143/104 H Blood Pressure Mean 117 Pulse Ox 94 Oxygen Delivery Method Nasal Cannula Nasal Cannula Oxygen Flow Rate (L/min) 3 12/10/22 20:48 12/10/22 20:50 Temperature 98.9 F Temperature Source Oral Pulse Rate 81 81 Respiratory Rate 18 16 Respiratory Effort Respiratory Pattern Blood Pressure 164/88 H 164/88 H Blood Pressure Mean 113 113 Pulse Ox 97 94 Oxygen Delivery Method Nasal Cannula Oxygen Flow Rate (L/min) 3 Weight Weight: 94.5 kg Body Mass Index (BMI) 38.0 Physical Exam Narrative Physical exam: General: Well-nourished, well-developed. Head: Normocephalic, atraumatic, no tenderness Eyes: Vision is grossly intact. EOMI ENT, no trauma, moist mucous membranes, no rhinorrhea Neck: Nontender, No thyromegaly. CVS: Regular rate and rhythm. S1-S2 present. No murmur, gallop or rub. Respiratory : Tachypnea, increased work of breathing. Clear to auscultation bilaterally, chest wall nontender Abdomen: Soft, nontender, nondistended, normal bowel sounds, no masses : Deferred Back: Nontender, no CVA tenderness Extremities: Nontender full range of motion, no trauma Skin: Normal color, no trauma, abrasions Neuro: Alert, oriented, cranial nerves II through XII grossly intact except patient is hard of hearing. Psychiatry: Normal mood. Normal affect. Not depressed. Not anxious. Results Lab / Micro Data 12/10/22 18:30 12/10/22 18:30 Labs: Laboratory Results - last 24 hr 12/10/22 18:30: WBC 11.1 H, RBC 3.60 L, Hgb 11.0 L, Hct 35.9 L, MCV 99.7 H, MCH 30.6, MCHC 30.6 L, RDW Std Deviation 46.9 H, RDW Coeff of Stephenie 12.7, Plt Count 306, MPV 9.4, Immature Gran % (Auto) 4.200 H, Neut % (Auto) 74.0 H, Lymph % (Auto) 8.7 L, [place]illi[place] % (Auto) 12.0 H, Eos % (Auto) 0.6, Baso % (Auto) 0.5, Absolute Neuts (auto) 8.2 H, Absolute Lymphs (auto) 0.97, Nucleated RBC % 0, Sodium 135 L, Potassium 3.5, Chloride 90 L, Carbon Dioxide 39.0 H, Anion Gap 6, BUN 30 H, Creatinine 1.55 H, Estim Creat Clear Calc 24.80, Est GFR (MDRD) Af Amer 42 L, Est GFR (MDRD) Non-Af 35 L, BUN/Creatinine Ratio 19.4, Glucose 107 H, Lactic Acid 1.2, Calcium 9.6, Troponin I High Sens 11, B-Natriuretic Peptide 113.3 H 12/10/22 19:12: Urine Color Yellow, Urine Clarity Clear, Urine pH 7.0, Ur Specific [place] 1.010, Urine Protein 30 H, Urine Glucose (UA) Normal, Urine Ketones 15 H, Urine Occult Blood 50 H, Urine Nitrite Negative, Urine Bilirubin Negative, Urine Urobilinogen Normal, Ur Leukocyte Esterase 100 H, Urine RBC 0-5 SEEN, Urine WBC 0-5 SEEN, Ur Squamous Epith Cells 0-5 SEEN, Urine Bacteria 0 SEEN, Urine Mucus 0 SEEN ABG Data ABG results: ABG 12/10/22 18:34 Specimen Type SANTA VBG pH 7.45 H VBG pO2 37 VBG HCO3 39 H VBG Total CO2 40 H VBG O2 Sat (Calc) 71 H VBG Base Excess 15 H POC Mix VBG pCO2 Pt Tmp 55.3 H O2 Delivery Device Cannula Liter Flow 3.0 Radiology Impression Chest X-Ray 12/10/22 18:45 IMPRESSION: There are no acute findings. Electronically Signed: Willie Lopes MD at 19:19 EDT , Assessment & Plan Assessment/Plan (1) CATHI (acute kidney injury): (2) Diabetes mellitus: QUALIFIERS: Diabetes mellitus complication detail: with polyneuropathy Diabetes mellitus complication status: with neurologic complications Diabetes mellitus termination clerk insulin use: without termination clerk use Diabetes mellitus type: type 2 Qualified Code(s): E11.42 - Type 2 diabetes mellitus with diabetic polyneuropathy (3) Hypertension: QUALIFIERS: Hypertension type: primary hypertension Qualified Code(s): I10 - Essential (primary) hypertension (4) Chronic obstructive pulmonary disease: QUALIFIERS: COPD type: unspecified COPD Qualified Code(s): J44.9 - Chronic obstructive pulmonary disease, unspecified (5) Weakness: (6) Falls: QUALIFIERS: Encounter type: initial encounter Qualified Code(s): W19.XXXA - Unspecified fall, initial encounter (7) Anemia: QUALIFIERS: Anemia type: other cause Other causes of anemia: other cause, not classified Qualified Code(s): D64.89 - Other specified anemias PLAN: Plan Generalized weakness and falls PT and OT to work with patient. Case management consult. Check vitamin D Diabetes mellitus Blood glucose is stable. Hold metformin. Accu-Chek correction scale insulin ordered. Hypertension Blood pressure has been within goal. Home blood pressure medication continued. PRN Hydralazine ordered COPD Not in exacerbation. Continue home inhalers. Continue home oxygen supplementation Anemia likely from blood loss. Hemoglobin on presentation was 11.0. Check occult stools. Check iron panel. Check vitamin B12, check folic acid. Check reticulocyte panel. Trend CBC UTI Improving Started on ceftriaxone at the emergency department and continued emergency department Continue CATHI Creatinine on presentation was 1.55. Review of old records show that his creatinine 2021 was around 0.68. Gentle IV hydration. BUN over creatinine is 30. Trend BMP Avoid nephrotoxic's. DVT prophylaxis: SCDs Charges/Coding Visit Charges Inpatient E&M: 89856 Init Hosp L3
[2022-12-10 23:04] VITALS: BP 163/86; PULSE 68; RESP 18; TEMP 36.6
[2022-12-10 23:10] VITALS: BMI 37.8
[2022-12-10 23:23] VITALS: BP 172/99; PULSE 68; RESP 20; TEMP 36.8; O2SAT 93
[2022-12-10 23:49] VITALS: BP 159/88; PULSE 74
[2022-12-11] VITALS (7 sets, daily range): BP systolic 138–148; BP diastolic 75–93; PULSE 69–98; RESP 18–24; TEMP 36.5–36.9; O2SAT 95–98
[2022-12-11] MEDS: 0.9% Normal Saline 1,000 ML 75 ML IV ×2 (00:10→12:44)
[2022-12-11 00:22] LABS: Bedside Glucose 128 mg/dL (74-106)
[2022-12-11] MEDS: Nystatin Powder 15gm Bottle 1 APPLIC TOPICAL ×2 (06:56→21:46)
[2022-12-11 07:19] LABS: Bedside Glucose 130 mg/dL (74-106)
[2022-12-11 07:20] LABS: Absolute Lymphocyte Count 0.78 X10^3/uL (0.83-4.51); Absolute Neutrophil Count 7.5 X10^3/uL (2.0-7.7); Basophil# 0.06 X10^3/uL; Basophil% 0.6 % (0-1); Eosinophil# 0.08 X10^3/uL; Eosinophils% 0.8 % (0-5); Lymphocyte # 0.78 X10^3/ul (0.83-4.51); Lymphocyte % 7.8 % (19-41); Mean Corp Hgb Conc 30.6 g/dL (32-36); Mean Corpuscular Hgb 30.5 pg (27.0-32.0); Mean Corpuscular Volume 99.7 fL (81-99); Mean Platelet Vol. 8.9 fl (6.2-12.0); Monocyte# 1.27 X10^3/uL; Monocyte% 12.8 % (0-10); NRBC Flagged by Analyzer 0 % (0-5); Neutrophil % 75.5 % (47-70); Platelet Count 288 K/mm3 (150-450); RBC Distribution Width CV 12.7 % (11.6-14.6); RBC Distribution Width SD 46.1 fl (35.1-43.9); RET-HE 31.9 pg (30-35); Red Blood Count 3.61 M/mm3 (4.2-5.4); Reticulocyte Count 1.41 % (0.5-1.5); White Blood Count 9.9 K/mm3 (4.4-11.0)
[2022-12-11 08:01] LABS: Vitamin B12 416 pg/mL (211-911); Vitamin D,25 Hydroxy 19.4 ng/mL
[2022-12-11 08:14] LABS: Anion Gap 4 (5-15); BUN 20 mg/dL (7-18); BUN/Creat Ratio 21.5 RATIO (10-20); Calcium,Total 9.2 mg/dL (8.5-10.1); Chloride 96 mmol/L (98-107); Creatinine, Serum 0.93 mg/dL (0.55-1.02); EST Glomerular Filtration Rate 62 mL/min (>60); Est Glom Filt Rate - Afr Amer 75 mL/min (>60); Estimated Creatinine Clearance 41.34 ml/min; Ferritin 746 ng/mL (8-252); Glucose 127 mg/dL (74-106); Iron 39 ug/dL (50-170); Iron Binding Capacity,Total 221 ug/dL (250-450); PERCENT IRON SATURATION 17.6 % (15.0-55.0); Potassium 3.3 mmol/L (3.5-5.1); Sodium Level 140 mmol/L (136-145)
--- NOTE | 2022-12-11 08:52 | WOUNDNOTE ---
wound photo: right posterior lower leg
--- NOTE | 2022-12-11 11:15 | PCM.PN.HOSP ---
Reason for Visit Reason for Visit: Diagnoses Other specified anemias (12/10/22) Type 2 diabetes mellitus with diabetic polyneuropathy (12/10/22) Essential (primary) hypertension (12/10/22) Chronic obstructive pulmonary disease, unspecified (12/10/22) Acute kidney failure, unspecified (12/10/22) Weakness (12/10/22) Unspecified fall, initial encounter (12/10/22) Subjective Subjective For slightly stronger than yesterday and slightly better than she had been, still weak overall. Somewhat poor historian when it comes to symptomatology and said she might of had some intermittent black stools for a couple weeks but she is not sure, sample that was sent down to the lab per nurse was brown in color with no blackness or red blood noted. Objective Data Objective Data Vital Signs: Vital Signs Temp Pulse Resp BP Pulse Ox O2 Del Method O2 Flow Rate 97.7 F L 80 18 138/80 H 98 Nasal Cannula 3 12/11/22 08:39 12/11/22 08:39 12/11/22 08:39 12/11/22 08:39 12/11/22 08:39 12/11/22 08:51 12/11/22 08:39 Oxygen Flow Rate (L/min) 3 Oxygen Delivery Method Nasal Cannula Weight: 93.7 kg Body Mass Index (BMI) 37.8 Intake & Output: Intake and Output for Last 24 Hours 12/09/22 12/10/22 12/11/22 23:59 23:59 23:59 Intake Total 850 / 850 Output Total 600 / 600 1000 / 1000 Balance 250 / 250 -1000 / -1000 Lab / Micro Data 12/11/22 07:07 12/11/22 07:07 Labs: Laboratory Results - last 24 hr 12/10/22 18:30: WBC 11.1 H, RBC 3.60 L, Hgb 11.0 L, Hct 35.9 L, MCV 99.7 H, MCH 30.6, MCHC 30.6 L, RDW Std Deviation 46.9 H, RDW Coeff of Stephenie 12.7, Plt Count 306, MPV 9.4, Immature Gran % (Auto) 4.200 H, Neut % (Auto) 74.0 H, Lymph % (Auto) 8.7 L, [place] % (Auto) 12.0 H, Eos % (Auto) 0.6, Baso % (Auto) 0.5, Absolute Neuts (auto) 8.2 H, Absolute Lymphs (auto) 0.97, Nucleated RBC % 0, Sodium 135 L, Potassium 3.5, Chloride 90 L, Carbon Dioxide 39.0 H, Anion Gap 6, BUN 30 H, Creatinine 1.55 H, Estim Creat Clear Calc 24.80, Est GFR (MDRD) Af Amer 42 L, Est GFR (MDRD) Non-Af 35 L, BUN/Creatinine Ratio 19.4, Glucose 107 H, Lactic Acid 1.2, Calcium 9.6, Troponin I High Sens 11, B-Natriuretic Peptide 113.3 H 12/10/22 19:12: Urine Color Yellow, Urine Clarity Clear, Urine pH 7.0, Ur Specific [place] 1.010, Urine Protein 30 H, Urine Glucose (UA) Normal, Urine Ketones 15 H, Urine Occult Blood 50 H, Urine Nitrite Negative, Urine Bilirubin Negative, Urine Urobilinogen Normal, Ur Leukocyte Esterase 100 H, Urine RBC 0-5 SEEN, Urine WBC 0-5 SEEN, Ur Squamous Epith Cells 0-5 SEEN, Urine Bacteria 0 SEEN, Urine Mucus 0 SEEN 12/11/22 00:04: POC Glucose 128 H 12/11/22 06:58: POC Glucose 130 H 12/11/22 07:07: WBC 9.9, RBC 3.61 L, Hgb 11.0 L, Hct 36.0 L, MCV 99.7 H, MCH 30.5, MCHC 30.6 L, RDW Std Deviation 46.1 H, RDW Coeff of Stephenie 12.7, Plt Count 288, MPV 8.9, Immature Gran % (Auto) 2.500 H, Neut % (Auto) 75.5 H, Lymph % (Auto) 7.8 L, [place] % (Auto) 12.8 H, Eos % (Auto) 0.8, Baso % (Auto) 0.6, Absolute Neuts (auto) 7.5, Absolute Lymphs (auto) 0.78 L, Nucleated RBC % 0, Retic Count 1.41, Immature Retic Fraction 16.40 H, Retic Hgb Equivalent 31.9, Sodium 140, Potassium 3.3 L, Chloride 96 L, Carbon Dioxide 40.0 H, Anion Gap 4 L, BUN 20 H, Creatinine 0.93, Estim Creat Clear Calc 41.34, Est GFR (MDRD) Af Amer 75, Est GFR (MDRD) Non-Af 62, BUN/Creatinine Ratio 21.5 H, Glucose 127 H, Calcium 9.2, Iron 39 L, TIBC 221 L, Iron Saturation 17.6, Ferritin 746 H, Vitamin B12 416, Vitamin D 25-Hydroxy 19.4, Folate 6.60 Micro: Microbiology 12/11/22 09:30 Stool Stool Occult Blood (SHENA) - Final Occult Blood Positive ABG Data ABG results: ABG 12/10/22 18:34 Specimen Type SANTA VBG pH 7.45 H VBG pO2 37 VBG HCO3 39 H VBG Total CO2 40 H VBG O2 Sat (Calc) 71 H VBG Base Excess 15 H POC Mix VBG pCO2 Pt Tmp 55.3 H O2 Delivery Device Cannula Liter Flow 3.0 Radiography Diagnostic Testing: Radiology Impression Chest X-Ray 12/10/22 18:45 IMPRESSION: There are no acute findings. Electronically Signed: Willie Lopes MD at 19:19 EDT Reading Location ID and State: [facility] / [place] , Service support , Physical Exam Narrative General: Alert, oriented, no apparent distress HEENT: Atraumatic, normocephalic Eyes: Anicteric, normal conjunctiva, extraocular movements grossly intact Neck: Supple Respiratory: Somewhat diminished bilaterally, normal respiratory effort Cardiovascular: Regular rate GI: Soft, nontender, nondistended Extremities: No edema Musculoskeletal: Moving all extremities Neuro: No overt focal neurological deficits Skin: No rashes appreciated Psych: Cooperative Assessment & Plan Assessment/Plan (1) CATHI (acute kidney injury): (2) Diabetes mellitus: QUALIFIERS: Diabetes mellitus complication detail: with polyneuropathy Diabetes mellitus complication status: with neurologic complications Diabetes mellitus terminal press operator insulin use: without terminal press operator use Diabetes mellitus type: type 2 Qualified Code(s): E11.42 - Type 2 diabetes mellitus with diabetic polyneuropathy (3) Hypertension: QUALIFIERS: Hypertension type: primary hypertension Qualified Code(s): I10 - Essential (primary) hypertension (4) Chronic obstructive pulmonary disease: QUALIFIERS: COPD type: unspecified COPD Qualified Code(s): J44.9 - Chronic obstructive pulmonary disease, unspecified (5) Weakness: (6) Falls: QUALIFIERS: Encounter type: initial encounter Qualified Code(s): W19.XXXA - Unspecified fall, initial encounter (7) Anemia: QUALIFIERS: Anemia type: other cause Other causes of anemia: other cause, not classified Qualified Code(s): D64.89 - Other specified anemias PLAN: Plan #CATHI -Creatinine on presentation was 1.55. Review of old records show that his creatinine 2021 was around 0.68. -Gentle IV hydration. BUN over creatinine is 30. -Trend BMP -Avoid nephrotoxic's. -12/11: Resolved with IV fluids and supportive care, suspect this was a large contributing factor to her weakness #UTI -Improving -Started on ceftriaxone at the emergency department and continued emergency department -Continue -12/11: Diagnosed on outpatient basis and was already on antibiotics on presentation, will finish antibiotic course. Did have some protein and blood in urine which may be from resolving UTI, would recommend repeating UA on an outpatient basis to verify no further blood/need for further work-up #Generalized weakness and falls -PT and OT to work with patient. -Case management consult. Check vitamin D #Macrocytic anemia -Hemoglobin on presentation was 11.0 -Appears she intermittently has a hemoglobin between 11-12's -12/11: Iron panel with ferritin of 746 but iron of 39, TIBC 221, iron saturation 17.6. Suggestive of at least a component of chronic disease and her reticulocyte index is 1.21 and given this is less than 2 it indicates hypoproliferation. Patient somewhat poor historian but said she thinks she may have had some dark stools intermittently for couple weeks though cannot describe any further than that and was not sure if she has ever had any bright red blood. Had a Cologuard a year ago she reports that was negative for blood. Her bowel movement that the FOBT was sent from was brown without blood or black. FOBT positive unclear clinical significance given stability of hemoglobin and mixed picture, with no acute blood loss, likely follow-up for colonoscopy as an outpatient especially given it is more likely UTI and CATHI/volume depletion in addition to her OA were causing the weakness but will continue to monitor CBC #Type 2 diabetes mellitus -Glucose checks and sliding scale insulin -Hold metformin #Hypertension -Blood pressure has been within goal. -Home blood pressure medication continued. -PRN Hydralazine ordered #COPD with chronic hypoxic respiratory failure on 2 L home O2 -Not in exacerbation. -Continue home inhalers. -Continue home oxygen supplementation #Knee OA -Supportive care DVT prophylaxis: SCDs Charges/Coding Visit Charges Inpatient E&M: 73453 Subs Hosp L2
[2022-12-11 11:35] LABS: Bedside Glucose 181 mg/dL (74-106)
[2022-12-11] MEDS: Insulin Lispro 100 UNIT/ML INSULN.PEN SC (12:35)
[2022-12-11] MEDS: Potassium Chloride Oral Tablet 20 MEQ 40 MEQ PO (12:44)
--- NOTE | 2022-12-11 15:32 | CASEMGMT ---
Addendum entered by Citllali Dubose 12/11/22 16:22: TC to [facility], spoke with Herminia, she states she sees in the system where ordered HHC but cannot see that anything has been set up. She states she will sent pt child care sitter a message regarding this and give this SANDRA SALGADO phone number. The [facility] program is where a pt has a coordinator that assists with pt making appts, etc. Original Note: SANDRA SALGADO Assessment: Face to Face with pt for initial transition planning/care coordination assessment. SANDRA SALGADO introduced self and role at [facility], pt voices understanding and consents to assessment. Pt is A/O x4 and answers all questions appropriately at this time. Pt sitting up in chair with oxygen on in no distress. Care providers, pharmacy, and demographics verified/updated. Admitting Dx: generalized weakness PCP:Aleksey Specialists:arminda Snow at [facility]; pt reports she has a new specialist in [place] that is a babcock tester but cannot recall the name; Naun, at [facility] Preferred Pharmacy: [facility] Insurance: [employer] [facility] Prescription Benefit: yes LNOK: Beba Correia, dtr; Rin Correia, dtr Living Arrangements: Pt lives alone in a single story home with 1 step to enter with a rail. Pt reports she is I in ADL's at home. She states her dtrs get her groceries but she does her laundry and meals. She reports her knees give out and she cannot stand long but that she do what I need to do to make it through even if it takes all day. Transportation: Pt states she can drive but her dtrs typically take her to medical appts. DME/HHC/SNF: Pt has a BSC, grab bars in the bathroom, walk in tub, raised toilet seat with handrails, FWW and BSC. Pt denies hx of HHC or SNF stays. Pt states she is active with [facility] and provided this SANDRA SALGADO the phone number. She states they are working to set her up with [facility]. Phone is [phone]. Pt reports she has oxygen through [employer] at 3L continuous, will call to confirm. Pt has a pox at home as well as nebulizer. Pt states no concerns with going home at time of dc. Discussed that therapy notes show pt ambulated 3 ft today. Pt states she could have went farther. Pt aware that we will see how she does tomorrow with therapy. Pt feels she can return home with [facility]. Requested dc broker assistant to print list for available options. Pt states she does have a wound that she does dressing changes on in between wound center visits. Pt states no further concerns/needs. CM to follow. Advised pt to ask CM if any further question/concerns/needs arise, voices understanding. Pt Goal: Home with C Plan: TBD pending therapy and progression of hospital stay
--- NOTE | 2022-12-11 16:15 | CASEMGMT ---
Discharge Planning HH list created. Lela Goodrich, Discharge Planning Asst.
--- NOTE | 2022-12-11 16:38 | CASEMGMT ---
SANDRA CM in to discuss PROCTOR form with patient. RN CM explained PROCTOR form, patient voiced understanding. Pt signed form and filed in chart. Pt provided with a copy of signed PROCTOR form. Patient had no further questions or concerns at this time.
[2022-12-11 17:44] LABS: Bedside Glucose 115 mg/dL (74-106)
[2022-12-11] MEDS: Ceftriaxone 1 GM/50 ML BAG IV (21:46)
[2022-12-11] MEDS: Pramipexole Di-HCl 0.25 MG Tablet 0.75 MG PO (21:46)
[2022-12-11] MEDS: Metoprolol Tartrate 25 MG Tablet PO (21:46)
[2022-12-11 22:09] LABS: Bedside Glucose 138 mg/dL (74-106)
[2022-12-11] MEDS: Albuterol 2.5 MG/3 ML VIAL.NEB. INHALATION (23:00)
[2022-12-12] VITALS (9 sets, daily range): BP systolic 153–172; BP diastolic 79–96; PULSE 84–92; RESP 18–20; TEMP 36.4–37.1; O2SAT 94–99
[2022-12-12] MEDS: Insulin Lispro 100 UNIT/ML INSULN.PEN SC ×2 (06:16→12:55)
[2022-12-12 06:45] LABS: Bedside Glucose 153 mg/dL (74-106)
[2022-12-12 06:57] LABS: Absolute Lymphocyte Count 0.75 X10^3/uL (0.83-4.51); Absolute Neutrophil Count 5.5 X10^3/uL (2.0-7.7); Basophil# 0.07 X10^3/uL; Basophil% 0.9 % (0-1); Eosinophil# 0.12 X10^3/uL; Eosinophils% 1.6 % (0-5); Hematocrit 34.2 % (37-47); Hemoglobin 10.4 g/dL (12.0-15.0); Lymphocyte # 0.75 X10^3/ul (0.83-4.51); Lymphocyte % 9.9 % (19-41); Mean Corp Hgb Conc 30.4 g/dL (32-36); Mean Corpuscular Hgb 30.5 pg (27.0-32.0); Mean Corpuscular Volume 100.3 fL (81-99); Mean Platelet Vol. 8.9 fl (6.2-12.0); Monocyte# 0.86 X10^3/uL; Monocyte% 11.3 % (0-10); NRBC Flagged by Analyzer 0 % (0-5); Neutrophil # 5.48 X10^3/uL (2.7-7.7); Neutrophil % 72.2 % (47-70); Platelet Count 277 K/mm3 (150-450); RBC Distribution Width SD 48.1 fl (35.1-43.9); Red Blood Count 3.41 M/mm3 (4.2-5.4); White Blood Count 7.6 K/mm3 (4.4-11.0)
[2022-12-12] MEDS: Albuterol 2.5 MG/3 ML VIAL.NEB. INHALATION ×2 (07:14→10:59)
[2022-12-12 07:32] LABS: Anion Gap 4 (5-15); BUN 17 mg/dL (7-18); Calcium,Total 8.7 mg/dL (8.5-10.1); Chloride 98 mmol/L (98-107); Creatinine, Serum 0.74 mg/dL (0.55-1.02); EST Glomerular Filtration Rate 82 mL/min (>60); Est Glom Filt Rate - Afr Amer 99 mL/min (>60); Estimated Creatinine Clearance 38.44 ml/min; Glucose 139 mg/dL (74-106); Potassium 3.8 mmol/L (3.5-5.1); Sodium Level 140 mmol/L (136-145)
[2022-12-12] MEDS: Nystatin Powder 15gm Bottle 1 APPLIC TOPICAL ×2 (09:38→21:19)
[2022-12-12] MEDS: Metoprolol Tartrate 25 MG Tablet PO ×2 (09:38→21:19)
[2022-12-12] MEDS: Sertraline 50 MG Tablet PO (09:38)
--- NOTE | 2022-12-12 11:59 | CASEMGMT ---
Discharge Planning SNF list created and sent to SW. Lela Goodrich, Discharge Planning Asst.
--- NOTE | 2022-12-12 12:11 | CASEMGMT ---
Social Work Pt and daughter confirm pt has a living will and a health care POA naming her daughters Rin and Beba. Beba agreeable to bring documents in to have scanned into the EMR. [facility] RICHARD
--- NOTE | 2022-12-12 12:12 | CASEMGMT ---
Social Work SW met with pt and dgt Beba to discuss discharge plan. Therapy recommending SNF and pt is agreeable. A list of SNF providers including quality and resource use data and consistent with the patient?s preferred geographic region, medical needs, and insurance network were provided from [facility]. Pt preferred provider is 1. [facility] 2. [facility]. Referral sent to [facility] in [facility]. SW will await determination of acceptance. Pt will need precert prior to SNF admission. Plan: TCU, pending acceptance and precert JOSE MANUEL [facility]
[2022-12-12 12:42] LABS: Bedside Glucose 171 mg/dL (74-106)
--- NOTE | 2022-12-12 14:10 | CASEMGMT ---
Social Work SW sent message to TCU that therapy has been pt and case is ready for review. Plan: TCU, pending acceptance and precsonia RICHARD
--- NOTE | 2022-12-12 16:10 | CASEMGMT ---
Social Work message from TCU. Pt case will be reviewed for acceptance on Thursday. JOSE MANUEL [facility]
--- NOTE | 2022-12-12 16:18 | PN.HOSP_ITS ---
Reason for Visit Reason for Visit: Diagnoses Other specified anemias (12/10/22) Type 2 diabetes mellitus with diabetic polyneuropathy (12/10/22) Essential (primary) hypertension (12/10/22) Chronic obstructive pulmonary disease, unspecified (12/10/22) Acute kidney failure, unspecified (12/10/22) Weakness (12/10/22) Unspecified fall, initial encounter (12/10/22) Subjective Subjective Patient still slightly weak but feeling better than she had been, reports feeling full Objective Data Objective Data Vital Signs: Vital Signs Temp Pulse Resp BP Pulse Ox O2 Del Method O2 Flow Rate 98.7 F 85 18 172/96 H 99 Nasal Cannula 3 12/12/22 09:30 12/12/22 10:59 12/12/22 10:59 12/12/22 09:30 12/12/22 09:30 12/12/22 09:38 12/12/22 13:30 Oxygen Flow Rate (L/min) 3 Oxygen Delivery Method Nasal Cannula Weight: 93.7 kg Body Mass Index (BMI) 37.8 Intake & Output: Intake and Output for Last 24 Hours 12/10/22 12/11/22 12/12/22 23:59 23:59 23:59 Intake Total 850 / 850 1432.5 / 1432.5 1500 / 1500 Output Total 600 / 600 1950 / 1950 1050 / 1050 Balance 250 / 250 -517.5 / -517.5 450 / 450 Lab / Micro Data 12/12/22 06:36 12/12/22 06:36 Labs: Laboratory Results - last 24 hr 12/11/22 17:16: POC Glucose 115 H 12/11/22 21:45: POC Glucose 138 H 12/12/22 06:15: POC Glucose 153 H 12/12/22 06:36: WBC 7.6, RBC 3.41 L, Hgb 10.4 L, Hct 34.2 L, MCV 100.3 H, MCH 30.5, MCHC 30.4 L, RDW Std Deviation 48.1 H, RDW Coeff of Stephenie 13.0, Plt Count 277, MPV 8.9, Immature Gran % (Auto) 4.100 H, Neut % (Auto) 72.2 H, Lymph % (Auto) 9.9 L, [place] % (Auto) 11.3 H, Eos % (Auto) 1.6, Baso % (Auto) 0.9, Abs olute Neuts (auto) 5.5, Absolute Lymphs (auto) 0.75 L, Nucleated RBC % 0, Sodium 140, Potassium 3.8, Chloride 98, Carbon Dioxide 38.0 H, Anion Gap 4 L, BUN 17, Creatinine 0.74, Estim Creat Clear Calc 38.44, Est GFR (MDRD) Af Amer 99, Est GFR (MDRD) Non-Af 82, BUN/Creatinine Ratio 23.0 H, Glucose 139 H, Calcium 8.7 12/12/22 12:25: POC Glucose 171 H Micro: Microbiology 12/10/22 19:12 Urine, Clean Catch Urine Culture - Final Klebsiella aerogenes 12/11/22 09:30 Stool Stool Occult Blood (SHENA) - Final Occult Blood Positive Physical Exam Narrative General: Alert, oriented, no apparent distress HEENT: Atraumatic, normocephalic Eyes: Anicteric, normal conjunctiva, extraocular movements grossly intact Neck: Supple Respiratory: Somewhat diminished bilaterally, normal respiratory effort Cardiovascular: Regular rate GI: Soft, nontender, nondistended Extremities: No edema Musculoskeletal: Moving all extremities Neuro: No overt focal neurological deficits Skin: No rashes appreciated Psych: Cooperative Assessment & Plan Assessment/Plan (1) CATHI (acute kidney injury): (2) Diabetes mellitus: QUALIFIERS: Diabetes mellitus type: type 2 Diabetes mellitus assisted insulin use: without exterminator termite use Diabetes mellitus complication status: with neurologic complications Diabetes mellitus complication detail: with polyneuropathy Qualified Code(s): E11.42 - Type 2 diabetes mellitus with diabetic polyneuropathy (3) Hypertension: QUALIFIERS: Hypertension type: primary hypertension Qualified Code(s): I10 - Essential (primary) hypertension (4) Chronic obstructive pulmonary disease: QUALIFIERS: COPD type: unspecified COPD Qualified Code(s): J44.9 - Chronic obstructive pulmonary disease, unspecified (5) Weakness: (6) Falls: QUALIFIERS: Encounter type: initial encounter Qualified Code(s): W19.XXXA - Unspecified fall, initial encounter (7) Anemia: QUALIFIERS: Anemia type: other cause Other causes of anemia: other cause, not classified Qualified Code(s): D64.89 - Other specified anemias PLAN: Plan #CATHI -Creatinine on presentation was 1.55. Review of old records show that his creatinine 2022 was around 0.68. -Gentle IV hydration. BUN over creatinine is 30. -Trend BMP -Avoid nephrotoxic's. -12/11: Resolved with IV fluids and supportive care, suspect this was a large contributing factor to her weakness -12/12: Resolved, patient improving #UTI -Improving -Started on ceftriaxone at the emergency department and continued emergency department -Continue -12/11: Diagnosed on outpatient basis and was already on antibiotics on presentation, will finish antibiotic course. Did have some protein and blood in urine which may be from resolving UTI, would recommend repeating UA on an outpatient basis to verify no further blood/need for further work-up -12/12: Per daughter she was scheduled on 2 more days of medication, there is no bacteria in her urine and UA not convincing for new UTI on admission and no further symptoms, unclear clinical significance of Klebsiella in urine with 11,020 5000 colony count never given clinical improvement and other reason for weakness we will give 1 more day of Rocephin and DC to complete original course #Generalized weakness and falls -PT and OT to work with patient. -Case management consult. Check vitamin D -12/12: Patient go to SNF, TCU pending acceptance and pre-CERT #Macrocytic anemia -Hemoglobin on presentation was 11.0 -Appears she intermittently has a hemoglobin between 11-12's -12/11: Iron panel with ferritin of 746 but iron of 39, TIBC 221, iron saturation 17.6. Suggestive of at least a component of chronic disease and her r eticulocyte index is 1.21 and given this is less than 2 it indicates hypoproliferation. Patient somewhat poor historian but said she thinks she may have had some dark stools intermittently for couple weeks though cannot describe any further than that and was not sure if she has ever had any bright red blood. Had a Cologuard a year ago she reports that was negative for blood. Her bowel movement that the FOBT was sent from was brown without blood or black. FOBT positive unclear clinical significance given stability of hemoglobin and mixed picture, with no acute blood loss, likely follow-up for colonoscopy as an outpatient especially given it is more likely UTI and CATHI/volume depletion in a ddition to her OA were causing the weakness but will continue to monitor CBC -12/12: Hemoglobin stable, do not think she has an acute bleed, stool today not black or with any red. Outpatient follow-up advised for an elective scope or work-up #Type 2 diabetes mellitus -Glucose checks and sliding scale insulin -Hold metformin #Hypertension -Blood pressure has been within goal. -Home blood pressure medication continued. -PRN Hydralazine ordered -12/12: Resume home HCTZ, continue metoprolol #COPD with chronic hypoxic respiratory failure on 2 L home O2 -Not in exacerbation. -Continue home oxygen supplementation -12/12: Resume home nebs and continue as needed #Knee OA -Supportive care DVT prophylaxis: lovenox sub q Charges/Coding Visit Charges Inpatient E&M: 39239 Subs Hosp L2
[2022-12-12 17:05] LABS: Bedside Glucose 120 mg/dL (74-106)
--- NOTE | 2022-12-12 17:34 | CASEMGMT ---
Social Work SW updated pt and dgt Rin that pt case would be reviewed by TCU on Thursday. Precert will need obtained prior to admission. Pt and family agreeable. JOSE MANUEL Pride
[2022-12-12] MEDS: Ipratropium/Albuterol Sulfate 3 ML AMPUL.NEB INHALATION (19:40)
[2022-12-12] MEDS: Ceftriaxone 1 GM/50 ML BAG IV (21:19)
[2022-12-12] MEDS: Pramipexole Di-HCl 0.25 MG Tablet 0.75 MG PO (21:21)
[2022-12-12] MEDS: MELATONIN 10 MG TABLET PO (21:24)
[2022-12-12 21:51] LABS: Bedside Glucose 146 mg/dL (74-106)
[2022-12-13] VITALS (12 sets, daily range): BP systolic 129–150; BP diastolic 74–85; PULSE 68–103; RESP 16–20; TEMP 36.4–37.1; O2SAT 96–100
[2022-12-13 06:54] LABS: Bedside Glucose 130 mg/dL (74-106)
[2022-12-13] MEDS: Ipratropium/Albuterol Sulfate 3 ML AMPUL.NEB INHALATION ×4 (07:07→19:02)
[2022-12-13 07:10] LABS: Absolute Lymphocyte Count 0.87 X10^3/uL (0.83-4.51); Absolute Neutrophil Count 6.2 X10^3/uL (2.0-7.7); Basophil# 0.06 X10^3/uL; Basophil% 0.7 % (0-1); Eosinophil# 0.18 X10^3/uL; Eosinophils% 2.1 % (0-5); Hematocrit 35.5 % (37-47); Hemoglobin 10.8 g/dL (12.0-15.0); Lymphocyte # 0.87 X10^3/ul (0.83-4.51); Lymphocyte % 10.3 % (19-41); Mean Corp Hgb Conc 30.4 g/dL (32-36); Mean Corpuscular Hgb 30.5 pg (27.0-32.0); Mean Corpuscular Volume 100.3 fL (81-99); Mean Platelet Vol. 9.2 fl (6.2-12.0); Monocyte% 9.5 % (0-10); NRBC Flagged by Analyzer 0 % (0-5); Neutrophil # 6.22 X10^3/uL (2.7-7.7); POSITIVE COUNT YES; Platelet Count 304 K/mm3 (150-450); RBC Distribution Width CV 13.1 % (11.6-14.6); RBC Distribution Width SD 48.5 fl (35.1-43.9); Red Blood Count 3.54 M/mm3 (4.2-5.4); White Blood Count 8.4 K/mm3 (4.4-11.0)
[2022-12-13 07:33] LABS: Differential Indicated SCAN CRITERIA MET
--- NOTE | 2022-12-13 07:55 | PN.HOSP_ITS ---
Reason for Visit Reason for Visit: Diagnoses Other specified anemias (12/10/22) Type 2 diabetes mellitus with diabetic polyneuropathy (12/10/22) Essential (primary) hypertension (12/10/22) Chronic obstructive pulmonary disease, unspecified (12/10/22) Acute kidney failure, unspecified (12/10/22) Weakness (12/10/22) Unspecified fall, initial encounter (12/10/22) Objective Data Objective Data Vital Signs: Vital Signs Temp Pulse Resp BP Pulse Ox O2 Del Method O2 Flow Rate 97.8 F 85 16 150/80 H 98 Nasal Cannula 3 12/13/22 02:45 12/13/22 07:07 12/13/22 07:07 12/13/22 02:45 12/13/22 07:07 12/13/22 07:07 12/13/22 07:07 Oxygen Flow Rate (L/min) 3 Oxygen Delivery Method Nasal Cannula Weight: 206 lb 9.17 oz Body Mass Index (BMI) 37.8 Intake & Output: Intake and Output for Last 24 Hours 12/11/22 12/12/22 12/13/22 23:59 23:59 23:59 Intake Total 1432.5 / 1432.5 1750 / 1750 Output Total 1950 / 1950 1050 / 1450 900 / 900 Balance -517.5 / -517.5 700 / 300 -900 / -900 Lab / Micro Data 12/13/22 06:57 12/12/22 06:36 Labs: Laboratory Results - last 24 hr 12/12/22 12:25: POC Glucose 171 H 12/12/22 16:44: POC Glucose 120 H 12/12/22 21:18: POC Glucose 146 H 12/13/22 06:35: POC Glucose 130 H 12/13/22 06:57: WBC 8.4, RBC 3.54 L, Hgb 10.8 L, Hct 35.5 L, MCV 100.3 H, MCH 30.5, MCHC 30.4 L, RDW Std Deviation 48.5 H, RDW Coeff of Stephenie 13.1, Plt Count 304, MPV 9.2, Immature Gran % (Auto) 3.400 H, Neut % (Auto) 74.0 H, Lymph % (Auto) 10.3 L, [place] % (Auto) 9.5, Eos % (Auto) 2.1, Baso % (Auto) 0.7, Absolute Neuts (auto) 6.2, Absolute Lymphs (auto) 0.87, Nucleated RBC % 0 Micro: Microbiology 12/10/22 19:12 Urine, Clean Catch Urine Culture - Final Klebsiella aerogenes 12/11/22 09:30 Stool Stool Occult Blood (SHENA) - Final Occult Blood Positive Physical Exam Narrative Seen and examined. Patient does not have burning micturition/dysuria. Patient has chronic increased frequency probably due to incomplete emptying of bladder/partial retention. Denies urgency. No fever. Physical exam General: Alert, Oriented x3, Cooperative HEENT: Atraumatic, PERRLA, EOMI, Normocephalic Oral: No Gingival or Mucosal Lesions/ Ulcerations Neck: Supple, No JVD, Negative Carotid Bruits Lungs: Air entry diminished in bilateral lung bases. No crepitation/rhonchi Cardiovascular: Regular rate, Regular Rhythm, Normal S1, Normal S2, No murmurs Abdomen: Bowel Sounds Present, Soft, Non Tender, Non-Distended : No renal angle tenderness. No suprapubic tenderness. Extremities: No edema, Capillary Refill Less than 3 Seconds Skin: No rashes, No breakdown Musculoskeletal: No Tenderness to Palpation of Joints or Extremities Neurological: Cranial nerves II-XII grossly intact, DTR 2+/4 and Symmetrical, Neuro grossly intact Psych/Mental Status: Normal Affect, Appropriate. Assessment & Plan Assessment/Plan (1) CATHI (acute kidney injury): (2) Diabetes mellitus: QUALIFIERS: Diabetes mellitus complication detail: with polyneuropathy Diabetes mellitus complication status: with neurologic comp lications Diabetes mellitus senior care insulin use: without senior care use Diabetes mellitus type: type 2 Qualified Code(s): E11.42 - Type 2 diabetes mellitus with diabetic polyneuropathy (3) Hypertension: QUALIFIERS: Hypertension type: primary hypertension Qualified Code(s): I10 - Essential (primary) hypertension (4) Chronic obstructive pulmonary disease: QUALIFIERS: COPD type: unspecified COPD Qualified Code(s): J44.9 - Chronic obstructive pulmonary disease, unspecified (5) Weakness: (6) Falls: QUALIFIERS: Encounter type: initial encounter Qualified Code(s): W19.XXXA - Unspecified fall, initial encounter (7) Anemia: QUALIFIERS: Anemia type: other cause Other causes of anemia: other cause, not classified Qualified Code(s): D64.89 - Other specified anemias PLAN: Plan #CATHI -Creatinine on presentation was 1.55. Review of old records show that his creatinine 2021 was around 0.68. -Gentle IV hydration. BUN over creatinine is 30. -Trend BMP -Avoid nephrotoxic's. CATHI resolved with IV fluid #Urinary colonization with Klebsiella: Patient does not have dysuria but has chronic partial retention with increased frequency. Urine culture shows Klebsiella [id number] colonies nonpathologic range. Patient was started on IV ceftriaxone in ED. I do not think patient had UTI after detailed history and discussion with daughter. Patient had 3 days of IV ceftriaxone. Antibiotic discontinued #Generalized weakness and falls -PT and OT to work with patient. -Case management consult. 12/13: Discussed with the vocational case manager. Pre-CERT pending. #Macrocytic anemia -Hemoglobin on presentation was 11.0 -Appears she intermittently has a hemoglobin between 11-12's -12/11: Iron panel with ferritin of 746 but iron of 39, TIBC 221, iron saturation 17.6. Suggestive of at least a component of chronic disease. Reticulocyte count 1.4% normal range. Immature reticulocyte fraction 16.4%. Does not seem patient has hemolysis or hypoproliferation. Anemia of chronic disease. Stool for occult blood positive. #Type 2 diabetes mellitus -Glucose checks and sliding scale insulin -Hold metformin #Hypertension -Blood pressure has been within goal. -Home blood pressure medication continued. -PRN Hydralazine ordered Resume home HCTZ, continue metoprolol #COPD with chronic hypoxic respiratory failure on 2 L home O2 -Not in exacerbation. -Continue home oxygen supplementation Resume home nebs and continue as needed #Knee OA -Supportive care DVT prophylaxis: lovenox sub q Charges/Coding Visit Charges Inpatient E&M: 44112 Subs Hosp L2
[2022-12-13] MEDS: Sertraline 50 MG Tablet PO (08:17)
[2022-12-13] MEDS: Metoprolol Tartrate 25 MG Tablet PO ×2 (08:17→21:34)
[2022-12-13] MEDS: Nystatin Powder 15gm Bottle 1 APPLIC TOPICAL ×2 (08:17→21:34)
[2022-12-13] MEDS: hydroCHLOROthiazide 25 MG Tablet PO (08:19)
[2022-12-13] MEDS: Enoxaparin 40 MG/0.4 ML Syringe SC (08:19)
[2022-12-13 09:55] LABS: Macrocytosis 1+; Platelet Estimate ADEQUATE (ADEQ)
[2022-12-13 11:38] LABS: Bedside Glucose 139 mg/dL (74-106)
[2022-12-13] MEDS: Insulin Lispro 100 UNIT/ML INSULN.PEN SC (16:27)
[2022-12-13 16:46] LABS: Bedside Glucose 224 mg/dL (74-106)
[2022-12-13] MEDS: Ceftriaxone 1 GM/50 ML BAG IV (21:33)
[2022-12-13] MEDS: MELATONIN 10 MG TABLET PO (21:35)
[2022-12-13] MEDS: Pramipexole Di-HCl 0.25 MG Tablet 0.75 MG PO (21:36)
[2022-12-14] VITALS (12 sets, daily range): BP systolic 137–169; BP diastolic 66–96; PULSE 91–115; RESP 16–24; TEMP 36.4–36.9; O2SAT 95–98
[2022-12-14 00:22] LABS: Bedside Glucose 136 mg/dL (74-106)
[2022-12-14 06:48] LABS: Bedside Glucose 140 mg/dL (74-106)
[2022-12-14] MEDS: Ipratropium/Albuterol Sulfate 3 ML AMPUL.NEB INHALATION ×4 (07:26→20:05)
[2022-12-14] MEDS: Metoprolol Tartrate 25 MG Tablet PO ×2 (08:39→22:29)
[2022-12-14] MEDS: Enoxaparin 40 MG/0.4 ML Syringe SC (08:40)
[2022-12-14] MEDS: Nystatin Powder 15gm Bottle 1 APPLIC TOPICAL ×2 (08:40→22:30)
[2022-12-14] MEDS: Sertraline 50 MG Tablet PO (08:40)
[2022-12-14] MEDS: hydroCHLOROthiazide 25 MG Tablet PO (08:41)
[2022-12-14 12:01] LABS: Bedside Glucose 129 mg/dL (74-106)
--- NOTE | 2022-12-14 12:26 | PN.HOSP_ITS ---
Reason for Visit Reason for Visit: Diagnoses Other specified anemias (12/10/22) Type 2 diabetes mellitus with diabetic polyneuropathy (12/10/22) Essential (primary) hypertension (12/10/22) Chronic obstructive pulmonary disease, unspecified (12/10/22) Acute kidney failure, unspecified (12/10/22) Weakness (12/10/22) Unspecified fall, initial encounter (12/10/22) Subjective Subjective Follow-up for failure to thrive generalized weakness. To the patient's daughter near the bedside. Objective Data Objective Data Vital Signs: Vital Signs Temp Pulse Resp BP Pulse Ox O2 Del Method O2 Flow Rate 97.6 F L 94 16 137/66 H 98 Nasal Cannula 3 12/14/22 02:40 12/14/22 11:14 12/14/22 11:14 12/14/22 08:39 12/14/22 09:57 12/14/22 07:26 12/14/22 09:57 Oxygen Flow Rate (L/min) 3 Oxygen Delivery Method Nasal Cannula Weight: 206 lb 9.17 oz Body Mass Index (BMI) 37.8 Intake & Output: Intake and Output for Last 24 Hours 12/12/22 12/13/22 12/14/22 23:59 23:59 23:59 Intake Total 1750 / 1750 50 / 50 280 / 280 Output Total 1050 / 1450 900 / 1300 850 / 850 Balance 700 / 300 -850 / -1250 -570 / -570 Lab / Micro Data 12/13/22 06:57 12/12/22 06:36 Labs: Laboratory Results - last 24 hr 12/13/22 16:25: POC Glucose 224 H 12/13/22 21:40: POC Glucose 136 H 12/14/22 06:29: POC Glucose 140 H 12/14/22 11:40: POC Glucose 129 H Micro: Microbiology 12/10/22 19:12 Urine, Clean Catch Urine Culture - Final Klebsiella aerogenes 12/11/22 09:30 Stool Stool Occult Blood (SHENA) - Final Occult Blood Positive Physical Exam Narrative Seen and examined. Patient does not have burning micturition/dysuria again confirmed with the patient. Patient has chronic increased frequency probably due to incomplete emp tying of bladder/partial retention. Denies urgency. No fever. Discussed with the patient's daughter. Physical exam General: Alert, Oriented x3, Cooperative HEENT: Atraumatic, PERRLA, EOMI, Normocephalic Oral: No Gingival or Mucosal Lesions/ Ulcerations Neck: Supple, No JVD, Negative Carotid Bruits Lungs: Air entry diminished in bilateral lung bases. No crepitation/rhonchi Cardiovascular: Regular rate, Regular Rhythm, Normal S1, Normal S2, No murmurs Abdomen: Bowel Sounds Present, Soft, Non Tender, Non-Distended : No renal angle tenderness. No suprapubic tenderness. Extremities: No edema, Capillary Refill Less than 3 Seconds Skin: No rashes, No breakdown Musculoskeletal: No Tenderness to Palpation of Joints or Extremities. Bilateral knee varus deformity from degenerative arthritis. ROM restricted. Muscle strength 4/5 at knee and hip joints. Neurological: Cranial nerves II-XII grossly intact, DTR 2+/4 and Symmetrical, Neuro grossly intact Psych/Mental Status: Normal Affect, Appropriate. Assessment & Plan Assessment/Plan (1) CATHI (acute kidney injury): (2) Weakness: (3) Falls: QUALIFIERS: Encounter type: initial encounter Qualified Code(s): W19.XXXA - Unspecified fall, initial encounter PLAN: Plan #CATHI -Creatinine on presentation was 1.55. Review of old records show that his cr eatinine 2021 was around 0.68. -Gentle IV hydration. BUN over creatinine is 30. -Trend BMP -Avoid nephrotoxic's. CATHI resolved with IV fluid #Urinary colonization with Klebsiella: Patient does not have dysuria but has chronic partial retention with increased frequency. Urine culture shows Klebsiella [id number] colonies nonpathologic range. Patient was started on IV ceftriaxone in ED. I do not think patient had UTI after detailed history and discussion with daughter. Patient had 3 days of IV ceftriaxone. Antibiotic discontinued 12/14: I informed the patient's daughter that she does not have UTI symptoms because she does not have symptoms but colonization and she agrees. No further antibiotic. #Generalized weakness and falls -PT and OT to work with patient. -Case management consult. 12/13: Discussed with the vocational case manager. Pre-CERT pending. #Macrocytic anemia -Hemoglobin on presentation was 11.0 -Appears she intermittently has a hemoglobin between 11-12's -12/13: Iron panel with ferritin of 746 but iron of 39, TIBC 221, iron saturation 17.6. Suggestive of at least a component of chronic disease. Reticulocyte count 1.4% normal range. Immature reticulocyte fraction 16.4%. Does not seem patient has hemolysis or hypoproliferation. Anemia of chronic disease. Stool for occult blood positive. 12/14: Patient can follow-up with outpatient GI #Type 2 diabetes mellitus -Glucose checks and sliding scale insulin -Hold metformin #Hypertension -Blood pressure has been within goal. -Home blood pressure medication continued. -PRN Hydralazine ordered Resume home HCTZ, continue metoprolol #COPD with chronic hypoxic respiratory failure on 2 L home O2 -Not in exacerbation. -Continue home oxygen supplementation Resume home nebs and continue as needed #Knee OA -Supportive care DVT prophylaxis: lovenox sub q Charges/Coding Visit Charges Inpatient E&M: 43637 Subs Hosp L2
[2022-12-14 16:52] LABS: Bedside Glucose 125 mg/dL (74-106)
[2022-12-14] MEDS: MELATONIN 10 MG TABLET PO (22:29)
[2022-12-14] MEDS: Pramipexole Di-HCl 0.25 MG Tablet 0.75 MG PO (22:29)
[2022-12-15 02:30] VITALS: BP 171/97; PULSE 87; RESP 18; TEMP 36.4; O2SAT 98
[2022-12-15 06:53] LABS: Bedside Glucose 148 mg/dL (74-106)
[2022-12-15 07:56] VITALS: PULSE 88; RESP 20; O2SAT 94
[2022-12-15] MEDS: Ipratropium/Albuterol Sulfate 3 ML AMPUL.NEB INHALATION ×3 (07:56→14:36)
[2022-12-15 08:51] VITALS: BP 128/73; PULSE 103; RESP 20; TEMP 36.8; O2SAT 96
[2022-12-15] MEDS: Sertraline 50 MG Tablet PO (09:02)
[2022-12-15 09:03] VITALS: BP 128/73; PULSE 103
[2022-12-15] MEDS: Enoxaparin 40 MG/0.4 ML Syringe SC (09:03)
[2022-12-15] MEDS: Metoprolol Tartrate 25 MG Tablet PO (09:03)
[2022-12-15] MEDS: Nystatin Powder 15gm Bottle 1 APPLIC TOPICAL (09:03)
[2022-12-15] MEDS: hydroCHLOROthiazide 25 MG Tablet PO (09:03)
--- NOTE | 2022-12-15 10:30 | PCM.TXEXTCAR ---
Diet Diet Order/Speech Therapy: 12/10/22 23:37 Diet: Consistent Carb - Calorie Controlled Food consistency:: Regular Liquid Consistency:: Regular/Thin How many daily calories?: 1800 calorie Routine Orders/Code Status Suppository Type: Dulcolax 10mg Suppository Frequency: Daily PRN Routine Lab Work: BMP (Once a week for 2 weeks then monthly while patient on HCTZ) Code Status: DNRCC-A (With intubation) Wound(s) Right calf: Wound Type: Stasis Ulcer right posterior lower leg: Wound Type: Stasis Ulcer Dressing Change: hydrogel with dry dressing Therapies Weight Bearing: Weight bearing as tolerated Extremity Affected:: Bilateral Lower Physical Therapy: Eval and Treat Occupational Therapy: Eval and Treat Speech Therapy: Eval and Treat Problem/Diagnosis (1) CATHI (acute kidney injury): Status: Acute Code(s): N17.9 - Acute kidney failure, unspecified (2) Weakness: Status: Acute Code(s): R53.1 - Weakness (3) Falls: Status: Acute Code(s): W19.XXXA - Unspecified fall, initial encounter Plan #CATHI -Creatinine on presentation was 1.55. Review of old records show that his creatinine 2021 was around 0.68. -Gentle IV hydration. BUN over creatinine is 30. -Trend BMP -Avoid nephrotoxic's. CATHI resolved with IV fluid #Urinary colonization with Klebsiella: Patient does not have dysuria but has chronic partial retention with increased frequency. Urine culture shows Klebsiella [phone] colonies nonpathologic range. Patient was started on IV ceftriaxone in ED. I do not think patient had UTI after detailed history and discussion with daughter. Patient had 3 days of IV ceftriaxone. Antibiotic discontinued 12/14: I informed the patient's daughter that she does not have UTI symptoms because she does not have symptoms but colonization and she agrees. No further antibiotic. #Generalized weakness and falls -PT and OT to work with patient. -Case management consult. 12/13: Discussed with the upper caser. Pre-CERT pending. #Macrocytic anemia -Hemoglobin on presentation was 11.0 -Appears she intermittently has a hemoglobin between 11-12's -12/13: Iron panel with ferritin of 746 but iron of 39, TIBC 221, iron saturation 17.6. Suggestive of at least a component of chronic disease. Reticulocyte count 1.4% normal range. Immature reticulocyte fraction 16.4%. Does not seem patient has hemolysis or hypoproliferation. Anemia of chronic disease. Stool for occult blood positive. 12/14: Patient can follow-up with outpatient GI #Type 2 diabetes mellitus -Glucose checks and sliding scale insulin -Hold metformin #Hypertension -Blood pressure has been within goal. -Home blood pressure medication continued. -PRN Hydralazine ordered Resume home HCTZ, continue metoprolol #COPD with chronic hypoxic respiratory failure on 2 L home O2 -Not in exacerbation. -Continue home oxygen supplementation Resume home nebs and continue as needed #Knee OA -Supportive care DVT prophylaxis: lovenox sub q Allergies/Procedures Done in Hospital Allergies lisinopril Adverse Reaction (Intermediate, Verified 12/10/22 23:21) cough pregabalin [From Lyrica] Adverse Reaction (Verified 12/10/22 23:21) Swelling Type of Care/Length of Stay Estimated LOS: Convalescent Care Less Than 30 days Type of Care Needed: Skilled Rehab Potential: Good Prognosis: Good Additional Orders/Day of Discharge Day of Discharge: 12/15/22 Discharge Plan Admission Admit Date/Time: 12/10/22 21:16 Primary Reason for Your Visit: Generalized weakness Attending Provider: Chris Deshpande Primary Care Provider: Roderick Ryder Consulting Providers: Burke Patterson; Angle Latham Instructions Patient Instructions: ED Fall Prevention Additional Instructions / Restrictions: DISCHARGE INSTRUCTIONS PLEASE READ *Please take this with you to your next doctors appointment* -Would recommend lab work (urinary analysis) to check for any further microscopic blood in your urine in 3-5 days through your primary care physician's office. Please call their office upon discharge to obtain order for lab work. -You will need to follow-up with Dr. Mae with GI in his office upon discharge for further evaluation of microscopic blood in your stool. Please call his office to schedule an establish care appointment (ph. [phone]). If there is a significant delay in your achievable appointment time you can also be referred elsewhere through her primary care physician's office -You have both metoprolol succinate 50 mg daily and metoprolol tartrate 50 mg daily on your medication list. Would suggest taking metoprolol succinate 50 mg daily as this is the extended release version and discontinuing the metoprolol tartrate. A new prescription for metoprolol succinate will be sent into your preferred pharmacy on file. I will be very importantly do not take both of these at the same time as this can cause significant decrease in blood pressure and heart rate in combination that could be dangerous -Please call your primary care provider's office upon discharge to schedule a hospital follow up within 1 week. -For any concerning signs or symptoms please call 911 or proceed to the nearest emergency department Discharge Orders/Prescriptions Prescriptions: New hydrochlorothiazide 25 mg Tablet 25 mg PO DAILY Qty: 0 0RF Continued (DME) Oxygen 3 liters NC Qty: 1 Dose Instruction: As directed Patient Comments: says she uses 3-4L at home Rx Instructions: As directed metformin 500 mg tablet 500 mg PO DAILY albuterol sulfate 90 mcg/actuation HFA aerosol inhaler 2 puff INHALATION Q4H PRN (Reason: Sob &/Or Wheezing) ropinirole 0.5 mg tablet 1.5 mg PO QHS ipratropium-albuterol 0.5-3MG/3 solution for nebulization 1 dose inhalation 4X/DAY oxybutynin chloride 5 mg Tablet 5 mg PO DAILY sertraline 50 mg Tablet 50 mg PO DAILY acetaminophen 500 mg Tablet 1,000 mg PO Q6H PRN PRN (Reason: Pain Score 1-3) Qty: 0 0RF gabapentin 100 mg Capsule 100 mg PO TIDCM 30 Days Qty: 90 0RF arformoterol 15 mcg/2 mL solution for nebulization 15 mcg INHALATION Q12H Changed metoprolol succinate 50 mg tablet extended release 24 hr 50 mg PO DAILY 30 Days Qty: 0 0RF Rx Instructions: Hold for heart less than 50 or systolic blood pressure less than 100 mmHg. Discontinued meloxicam 7.5 mg tablet 7.5 mg PO DAILY budesonide 0.5 MG/2ML suspension for nebulization 1 dose inhalation BID metoprolol tartrate 50 mg Tablet 50 mg PO DAILY hydrochlorothiazide 12.5 mg capsule 25 mg PO DAILY sennosides-docusate sodium [Stool Softener-Stimulant Laxat] 8.6-50 mg Tablet 1 tab PO BID 30 Days Qty: 60 0RF Hold Instructions: Ordered oxycodone 5 mg Tablet 5 mg PO Q4H PRN PRN (Reason: Pain Score 6-10) 7 Days Qty: 42 0RF cephalexin [cephalexin] 500 MG capsule 500 mg PO Q6 Qty: 40 0RF Hold Instructions: MD Ordered Referrals / Follow Up: Roderick Ryder MD [Primary Care Provider] - Jostin Snow DO [Med Staff - Active Staff] - Within 1 Month (copd) (3) Falls Qualifiers: Encounter type: initial encounter Qualified Code(s): W19.XXXA - Unspecified fall, initial encounter
[2022-12-15 11:25] VITALS: PULSE 84; RESP 20
--- NOTE | 2022-12-15 11:27 | WOUNDNOTE ---
wound photo: right posterior lower leg
--- NOTE | 2022-12-15 12:31 | CASEMGMT ---
Addendum entered by Christy Bui 12/15/22 13:09: Social Work Discharge instructions sent to TCU, pt ready to go to TCU today skilled. SW let RN know all paperwork complete and pt can go to TCU when they are ready for her. Pt to TCU today, skilled. BUNNY Matt Original Note: Social Work Pt was approved to go to TCU today, SW let pt and daughter Beba who is in the room know. SW let physician know, awaiting discharge. BUNNY Matt
--- NOTE | 2022-12-15 12:33 | PCM.DC.SUM ---
Providers Date of Admission: 12/10/22 Date of Discharge: 12/15/22 Primary Care Physician: Dr. Roderick Ryder MD Consultations 12/11/22 05:03 Consult: Onc/Wound/heel nail rasper Routine Comment: Reason for Consult:: rt leg ulcer Reason For Visit: GENERALIZED WEAKNESS Diagnosis Discharge Diagnosis (1) CATHI (acute kidney injury): Status: Acute Code(s): N17.9 - Acute kidney failure, unspecified (2) Weakness: Status: Acute Code(s): R53.1 - Weakness (3) Falls: Status: Acute Code(s): W19.XXXA - Unspecified fall, initial encounter Qualifiers: Encounter type: initial encounter Qualified Code(s): W19.XXXA - Unspecified fall, initial encounter Plan This is a 27-year-old female this is 77-year-old female with history of COPD on 2 L of home oxygen was admitted for generalized weakness, recurrent fall decreased ADL. 5 days prior to admission patient fell down late down overnight until her daughter found her. Thereafter patient again fell down. She was also treated with antibiotic for UTI as an outpatient prior to admission. She also gets intermittent confusion. #CATHI -Creatinine on presentation was 1.55. Review of old records show that his creatinine 2021 was around 0.68. -Gentle IV hydration. BUN over creatinine is 30. -Last creatinine 0.74 on 12/12. CATHI resolved with IV fluid #Urinary colonization with Klebsiella: Patient does not have dysuria but has chronic partial retention with increased frequency. Urine culture shows Klebsiella [phone] colonies nonpathologic range. Patient was started on IV ceftriaxone in ED. I do not think patient had UTI after detailed history and discussion with daughter. Patient had 3 days of IV ceftriaxone. Antibiotic discontinued 12/14: I informed the patient's daughter that she does not have UTI symptoms because she does not have symptoms but colonization and she agrees. No further antibiotic. #Generalized weakness and falls -PT and OT to work with patient. -Case management consult. 12/13: Discussed with the watch case polisher. 12/15: Pre-CERT was obtained and patient approved for SNF.. #Macrocytic anemia -Hemoglobin on presentation was 11.0 -Appears she intermittently has a hemoglobin between 11-12's -12/13: Iron panel with ferritin of 746 but iron of 39, TIBC 221, iron saturation 17.6. Suggestive of at least a component of chronic disease. Reticulocyte count 1.4% normal range. Immature reticulocyte fraction 16.4%. Does not seem patient has hemolysis or hypoproliferation. Anemia of chronic disease. Stool for occult blood positive. 12/14: Patient can follow-up with outpatient GI #Type 2 diabetes mellitus -Glucose checks and sliding scale insulin -Hold metformin #Hypertension -Blood pressure has been within goal. -Home blood pressure medication continued. -PRN Hydralazine ordered Resume home HCTZ, continue metoprolol #COPD with chronic hypoxic respiratory failure on 2 L home O2 -Not in exacerbation. -Continue home oxygen supplementation Resume home nebs and continue as needed Follow-up with pulmonary clinic Dr. Snow for PFT. #Knee OA -Supportive care DVT prophylaxis: lovenox sub q Discharge medication reconciliation done. Discharge follow-up instructions completed. Discharge process discussed with the patient and all questions were answered to patient's satisfaction. Total time spent, exact 35 minutes on discharge meds reconciliation, examination, coordination of care with nurses and ancillary staff, review of imaging and blood test and discussion with the patient on follow-up instructions. Medications at Discharge Home Medications albuterol sulfate 90 mcg/actuation aerosol inhaler 2 puff inhalation Q4H PRN Sob &/Or Wheezing 10/14/18 metformin 500 mg tablet 500 mg PO DAILY Blood sugar 10/14/18 ropinirole 0.5 mg tablet 1.5 mg PO QHS Restless leg 10/14/18 Oxygen ##1 10/27/18 ipratropium 0.5 mg-albuterol 3 mg (2.5 mg base)/3 mL nebulization soln 1 dose inhalation 4X/DAY Breathing 12/22/18 oxybutynin chloride 5 mg tablet 5 mg PO DAILY Bladder 07/25/21 sertraline 50 mg tablet 50 mg PO DAILY Mood 07/25/21 acetaminophen 500 mg tablet 1,000 mg (2 x 500 mg) PO Q6H PRN PRN Pain Score 1-3 #0 tabs 08/07/21 gabapentin 100 mg capsule 100 mg PO TIDCM 30 days #90 caps 08/07/21 arformoterol 15 mcg/2 mL solution for nebulization 15 mcg inhalation Q12H breathing 12/11/22 hydrochlorothiazide 25 mg tablet 25 mg PO DAILY #0 tabs 12/15/22 metoprolol succinate 50 mg tablet,extended release 24 hr 50 mg PO DAILY 30 days #0 tabs 12/15/22 Physical Exam Narrative Seen and examined. No fever. Discussed the hospital course with the daughter present in the room. Patient does not have burning micturition/dysuria. Patient has chronic increased frequency probably due to incomplete emptying of bladder/partial retention. Denies urgency. Physical exam General: Alert, Oriented x3, Cooperative HEENT: Atraumatic, PERRLA, EOMI, Normocephalic Oral: Oral mucosa moist. No Gingival or Mucosal Lesions/ Ulcerations Neck: Supple, No JVD, Negative Carotid Bruits Lungs: Air entry diminished in bilateral lung bases. No crepitation/rhonchi Cardiovascular: Regular rate, Regular Rhythm, Normal S1, Normal S2, No murmurs Abdomen: Bowel Sounds Present, Soft, Non Tender, Non-Distended : No dysuria. No renal angle tenderness. No suprapubic tenderness. Extremities: No edema, Capillary Refill Less than 3 Seconds Skin: No rashes, No breakdown Musculoskeletal: No Tenderness to Palpation of Joints or Extremities. Bilateral knee varus deformity from degenerative arthritis. ROM restricted. Muscle strength 4/5 at knee and hip joints. Neurological: Cranial nerves II-XII grossly intact, DTR 2+/4 and Symmetrical, Neuro grossly intact Psych/Mental Status: Normal Affect, Appropriate. Weight / BMI Weight Weight: 206 lb 9.17 oz Body Mass Index (BMI) 37.8 ABG / Lab / Microbiology Data 12/13/22 06:57 12/12/22 06:36 Laboratory: Laboratory Results - last 24 hr 12/14/22 16:29: POC Glucose 125 H 12/15/22 06:29: POC Glucose 148 H Microbiology: Microbiology 12/10/22 19:12 Urine, Clean Catch Urine Culture - Final Klebsiella aerogenes 12/11/22 09:30 Stool Stool Occult Blood (SHENA) - Final Occult Blood Positive Meaningful Use Info Meaningful Use Diagnoses (Choose all that apply): None applicable Discharge Plan Admission Admit Date/Time: 12/10/22 21:16 Primary Reason for Your Visit: Generalized weakness Attending Provider: Chris Deshpande Primary Care Provider: Roderick Ryder Consulting Providers: Burke Patterson; Angle Latham Instructions Patient Instructions: ED Fall Prevention Additional Instructions / Restrictions: DISCHARGE INSTRUCTIONS PLEASE READ *Please take this with you to your next doctors appointment* -Would recommend lab work (urinary analysis) to check for any further microscopic blood in your urine in 3-5 days through your primary care physician's office. Please call their office upon discharge to obtain order for lab work. -You will need to follow-up with Dr. Mae with GI in his office upon discharge for further evaluation of microscopic blood in your stool. Please call his office to schedule an establish care appointment (ph. [phone]). If there is a significant delay in your achievable appointment time you can also be referred elsewhere through her primary care physician's office -You have both metoprolol succinate 50 mg daily and metoprolol tartrate 50 mg daily on your medication list. Would suggest taking metoprolol succinate 50 mg daily as this is the extended release version and discontinuing the metoprolol tartrate. A new prescription for metoprolol succinate will be sent into your preferred pharmacy on file. I will be very importantly do not take both of these at the same time as this can cause significant decrease in blood pressure and heart rate in combination that could be dangerous -Please call your primary care provider's office upon discharge to schedule a hospital follow up within 1 week. -For any concerning signs or symptoms please call 911 or proceed to the nearest emergency department Discharge Orders/Prescriptions Prescriptions: New hydrochlorothiazide 25 mg Tablet 25 mg PO DAILY Qty: 0 0RF Continued (DME) Oxygen 3 liters NC Qty: 1 Dose Instruction: As directed Patient Comments: says she uses 3-4L at home Rx Instructions: As directed metformin 500 mg tablet 500 mg PO DAILY albuterol sulfate 90 mcg/actuation HFA aerosol inhaler 2 puff INHALATION Q4H PRN (Reason: Sob &/Or Wheezing) ropinirole 0.5 mg tablet 1.5 mg PO QHS ipratropium-albuterol 0.5-3MG/3 solution for nebulization 1 dose inhalation 4X/DAY oxybutynin chloride 5 mg Tablet 5 mg PO DAILY sertraline 50 mg Tablet 50 mg PO DAILY acetaminophen 500 mg Tablet 1,000 mg PO Q6H PRN PRN (Reason: Pain Score 1-3) Qty: 0 0RF gabapentin 100 mg Capsule 100 mg PO TIDCM 30 Days Qty: 90 0RF arformoterol 15 mcg/2 mL solution for nebulization 15 mcg INHALATION Q12H Changed metoprolol succinate 50 mg tablet extended release 24 hr 50 mg PO DAILY 30 Days Qty: 0 0RF Rx Instructions: Hold for heart less than 50 or systolic blood pressure less than 100 mmHg. Discontinued meloxicam 7.5 mg tablet 7.5 mg PO DAILY budesonide 0.5 MG/2ML suspension for nebulization 1 dose inhalation BID metoprolol tartrate 50 mg Tablet 50 mg PO DAILY hydrochlorothiazide 12.5 mg capsule 25 mg PO DAILY sennosides-docusate sodium [Stool Softener-Stimulant Laxat] 8.6-50 mg Tablet 1 tab PO BID 30 Days Qty: 60 0RF Hold Instructions: MD Ordered oxycodone 5 mg Tablet 5 mg PO Q4H PRN PRN (Reason: Pain Score 6-10) 7 Days Qty: 42 0RF cephalexin [cephalexin] 500 MG capsule 500 mg PO Q6 Qty: 40 0RF Hold Instructions: Ordered Referrals / Follow Up: Jostin Snow DO [Med Staff - Active Staff] - Within 1 Month (copd) Roderick Ryder MD [Primary Care Provider] - Kade Mae DO [Med Staff - Active Staff] - Within 1 Month (for stool occult blood positive) Disposition Disposition (needs filled in before D/C Order can be placed): Group Home Facility Charges/Coding Visit Charges Inpatient E&M: 33607 Disch Hosp >30min
--- NOTE | 2022-12-15 14:10 | PHA.DC.MR.R ---
Pharmacy [place] Med Reconciliation Pharmacy Service has performed discharge medication reconciliation for this patient. The patient's discharge medication list was reviewed for discrepancies and discrepancies were resolved. Medications at Discharge Home Medications albuterol sulfate 90 mcg/actuation aerosol inhaler 2 puff inhalation Q4H PRN Sob &/Or Wheezing 10/14/18 metformin 500 mg tablet 500 mg PO DAILY Blood sugar 10/14/18 ropinirole 0.5 mg tablet 1.5 mg PO QHS Restless leg 10/14/18 Oxygen ##1 10/27/18 ipratropium 0.5 mg-albuterol 3 mg (2.5 mg base)/3 mL nebulization soln 1 dose inhalation 4X/DAY Breathing 12/22/18 oxybutynin chloride 5 mg tablet 5 mg PO DAILY Bladder 07/25/21 sertraline 50 mg tablet 50 mg PO DAILY Mood 07/25/21 acetaminophen 500 mg tablet 1,000 mg (2 x 500 mg) PO Q6H PRN PRN Pain Score 1-3 #0 tabs 08/07/21 gabapentin 100 mg capsule 100 mg PO TIDCM 30 days #90 caps 08/07/21 arformoterol 15 mcg/2 mL solution for nebulization 15 mcg inhalation Q12H breathing 12/11/22 hydrochlorothiazide 25 mg tablet 25 mg PO DAILY #0 tabs 12/15/22 metoprolol succinate 50 mg tablet,extended release 24 hr 50 mg PO DAILY 30 days #0 tabs 12/15/22
[2022-12-15 14:33] VITALS: BP 151/91; PULSE 85; RESP 18; TEMP 36.6; O2SAT 95
--- NOTE | 2022-12-15 15:06 | MDS.RN ---
REPORT CALLED TO TCU
== END 2022-12-15 15:33 | disposition skilled nursing facility (03) ==
LOC: ED 21:17 → MS3 21:55
PROVIDERS: Internal Medicine; Admitting Provider Hospitalist; Emergency Provider Emergency Medicine; PCP Family Medicine; Visit Provider Internal Medicine
DX: N17.9 Acute kidney failure, unspecified (principal); E11.621 Type 2 diabetes mellitus with foot ulcer; L97.919 Non-pressure chronic ulcer of unspecified part of right lower leg with unspecified severity; J44.9 Chronic obstructive pulmonary disease, unspecified; E11.42 Type 2 diabetes mellitus with diabetic polyneuropathy; E11.59 Type 2 diabetes mellitus with other circulatory complications; J96.11 Chronic respiratory failure with hypoxia; E66.01 Morbid (severe) obesity due to excess calories; K21.9 Gastro-esophageal reflux disease without esophagitis; R62.7 Adult failure to thrive; R53.1 Weakness; I10 Essential (primary) hypertension; Z87.891 Personal history of nicotine dependence; R41.0 Disorientation, unspecified; R29.6 Repeated falls; M79.7 Fibromyalgia; M17.9 Osteoarthritis of knee, unspecified; I49.1 Atrial premature depolarization; G47.33 Obstructive sleep apnea (adult) (pediatric); Z79.899 Other long term (current) drug therapy; Z79.84 Long term (current) use of oral hypoglycemic drugs; N39.0 Urinary tract infection, site not specified; Z68.38 Body mass index [BMI] 38.0-38.9, adult; Z99.81 Dependence on supplemental oxygen; D64.9 Anemia, unspecified
CPT/HCPCS: 36415; 71045; 80048; 81001; 82274; 82306; 82607; 82728; 82746; 82803; 82962; 83540; 83550; 83605; 83880; 84484; 85025; 85045; 87077; 87086; 87088; 87186; 93005; 94640; 94668; 96361; 96365; 96366; 96372; 97110; 97116; 97162; 97166; 97530; 97535; 99221; 99252; 99284; J7030; J7040; G0378; G0463

== ENCOUNTER 2022-12-15 15:35 | Inpatient (IN) | payer MEDICARE, SELFPAY ==
[2022-12-15 15:47] VITALS: BP 114/62; PULSE 78; RESP 18; TEMP 36.2; O2SAT 99
[2022-12-15 16:06] VITALS: BMI 36.3
[2022-12-15] MEDS: Gabapentin 100 MG Capsule PO (18:00)
[2022-12-15 19:00] VITALS: BMI 36.6
[2022-12-15 19:02] VITALS: PULSE 99; RESP 20
[2022-12-15] MEDS: Ipratropium/Albuterol Sulfate 3 ML AMPUL.NEB INHALATION (19:02)
--- NOTE | 2022-12-15 20:16 | PCM.HP.STD ---
HPI - General General Date of Admission: 12/15/22 Date of Service: 12/15/22 Chief Complaint: Here for rehabilitation. HPI Narrative 12/10/2022 ENZO VAZQUEZ, is a 77 Female who presents to [facility] Emergency Department with weakness. 12/10/2022 EKG sinus rhythm with premature supraventricular contractions, otherwise normal EKG. 2 falls, no head injury, diffusely weak. on Cipro for urinary tract infection. Evaluation shows ongoing urinary tract infection, acute kidney injury. 12/10/2022 Admit to Hospital. PT/OT for debility. Ceftriaxone IV for urinary tract infection, urine culture pending. Gentle IV fluids for acute kidney injury. 12/11/2022 Slightly stronger. Acute kidney injury resolved with IV fluids. Finish antibiotic for urinary tract infection. . PT/OT Debility. Fecal occult blood testing positive. 12/12/2022 Feeling better. PT/OT for SNF. Hemoglobin stable. 12/13/2022 Urine culture 11,000 to 25,000 Klebsiella Pneumoniae, stop Ceftriaxone. Pre-CERT for TCU. 12/14/2022 Stool guaiac positive, outpatient GI for colonoscopy. 12/15/2022 Admit to TCU with debility, [facility] for [facility], [facility], prior to discharge home alone. [facility] Medical History (Updated 12/15/22 @ 20:[address] Gustavo Justice MD) COPD (chronic obstructive pulmonary disease) Debility Degenerative disc disease, lumbar Depression Edema of both lower extremities Essential hypertension Fibromyalgia Generalized muscle weakness GERD (gastroesophageal reflux disease) Morbid obesity with BMI of 40.0-44.9, adult Muscle spasm MICHEL (obstructive sleep apnea) Osteoarthritis Right knee pain RLS (restless legs syndrome) Type 2 diabetes mellitus without complication Venous stasis ulcer of left lower leg with edema of left lower leg Home Medications albuterol sulfate 90 mcg/actuation aerosol inhaler 2 puff inhalation Q4H PRN Sob &/Or Wheezing 10/14/18 [History Last Taken Unknown] metformin 500 mg tablet 500 mg PO DAILY Blood sugar 10/14/18 [History Last Taken 12/10/22] ropinirole 0.5 mg tablet 1.5 mg PO QHS Restless leg 10/14/18 [History Last Taken 12/09/22] Oxygen #1 ea 10/27/18 [History Last Taken Unknown] ipratropium 0.5 mg-albuterol 3 mg (2.5 mg base)/3 mL nebulization soln 1 dose inhalation 4X/DAY Breathing 12/22/18 [History Last Taken Unknown] oxybutynin chloride 5 mg tablet 5 mg PO DAILY Bladder 07/25/21 [History Last Taken 12/10/22] sertraline 50 mg tablet 50 mg PO DAILY Mood 07/25/21 [History Last Taken 12/10/22] acetaminophen 500 mg tablet 1,000 mg (2 x 500 mg) PO Q6H PRN PRN Pain Score 1-3 #0 tabs 08/07/21 [Rx Last Taken Unknown] gabapentin 100 mg capsule 100 mg PO TIDCM nerve pain 30 days #90 caps 08/07/21 [Rx Last Taken 12/10/22] arformoterol 15 mcg/2 mL solution for nebulization 15 mcg inhalation Q12H breathing 12/11/22 [History Last Taken Unknown] hydrochlorothiazide 25 mg tablet 25 mg PO DAILY BP/fluid #0 tabs 12/15/22 [Rx Last Taken Unknown] metoprolol succinate 50 mg tablet,extended release 24 hr 50 mg PO DAILY BP/HR 30 days #0 tabs 12/15/22 [Rx Last Taken Unknown] Allergy/AdvReac Type Severity Reaction Status Date / Time lisinopril AdvReac Intermediate cough Verified 12/10/22 23:21 pregabalin [From Lyrica] AdvReac Swelling Verified 12/10/22 23:21 Family History Mother Cancer lymphoma Father COPD (chronic obstructive pulmonary disease) Cancer bone Son Heart disease ischemic heart disease Surgical History History of appendectomy History of hysterectomy History of tonsillectomy Social History household members: none Smoking Status: Former smoker how long ago did patient quit smokin.5 years ago alcohol intake: current alcohol intake frequency: holidays/special occasions only substance use type: does not use caffeine: Yes Type: coffee Number of servings: 1 ROS Constitutional Constitutional: Denies chills, fever(s) or weight gain ENT HEENT: Denies headache(s), nasal congestion or nasal discharge Cardiovascular Cardiovascular: Denies chest pain or palpitations Respiratory/Chest Respiratory/Chest: Denies cough, excessive phlegm production or shortness of breath with exertion Gastrointestinal Gastrointestinal: Denies abdominal pain, nausea or vomiting Genitourinary Genitourinary: Denies dysuria Musculoskeletal Musculoskeletal: Denies joint pain or joint swelling Integumentary Integumentary: Denies rash or wounds Neurologic Neurologic: Denies focal weakness, numbness or tingling Psychiatric Psychiatric: Denies anxiety, auditory hallucinations, depression, homicidal ideation or suicidal ideation Vital Signs Vital Signs Vital Signs: 12/15/22 15:47 12/15/22 16:49 12/15/22 19:02 Temperature 97.1 F L Temperature Source Temporal Pulse Rate 78 99 Pulse Rhythm Regular Pulse Strength Normal (2+) Respiratory Rate 18 20 H Respiratory Effort Normal Respiratory Depth Normal Respiratory Pattern Normal Normal Blood Pressure 114/62 Blood Pressure Mean 79 Blood Pressure Source Monitor Blood Pressure Position Sitting Blood Pressure Location Right Arm Pulse Ox 99 Oxygen Delivery Method Room Air Nasal Cannula Oxygen Flow Rate (L/min) 3 3 Weight Weight: 90.31 kg Body Mass Index (BMI) 36.3 Physical Exam Const alert General Appearance: cooperative HEENT normocephalic Eyes PERRL and EOMs intact bilaterally Neck supple, no JVD and no carotid bruits Resp normal respiratory effort, normal air movement and clear to auscultation bilaterally Cardio regular rate and regular rhythm GI normal to inspection, nondistended, normoactive bowel sounds, non-tender and non-distended Extremity normal capillary refill General Extremity: Negative for edema Skin no rashes or lesions noted General Skin Exam: no breakdown Psych affect normal Appearance: appropriate Assessment & Plan Assessment/Plan (1) Debility: (2) Urinary tract infection: (3) CATHI (acute kidney injury): (4) Blood in stool: (5) Chronic obstructive pulmonary disease: QUALIFIERS: COPD type: unspecified COPD Qualified Code(s): J44.9 - Chronic obstructive pulmonary disease, unspecified (6) Osteoarthritis: QUALIFIERS: Osteoarthritis location: multiple joints Osteoarthritis type: unspecified Qualified Code(s): M15.9 - Polyosteoarthritis, unspecified (7) Diabetes mellitus: QUALIFIERS: Diabetes mellitus complication detail: with polyneuropathy Diabetes mellitus complication status: with neurologic complications Diabetes mellitus correction insulin use: without correction use Diabetes mellitus type: type 2 Qualified Code(s): E11.42 - Type 2 diabetes mellitus with diabetic polyneuropathy (8) Restless leg syndrome: (9) Hypertension: QUALIFIERS: Hypertension type: primary hypertension Qualified Code(s): I10 - Essential (primary) hypertension (10) Overactive bladder: (11) Depression: (12) Diabetic polyneuropathy: PLAN: Plan 77 year old female with below past medical history hospitalized for urinary tract infection, acute kidney injury, occult blood in stool, admitted to TCU with debility, here for rehabilitation, strengthening, prior to discharge home alone. Debility - PT/OT. Pain - Tylenol 1000mg q6h prn pain (1-3), Bowel - senna/colace 1 tablet bid, Dulcolax 10mg pr daily prn, Magnesium citrate 300ml po x 1 prn. Adult immunization - Administer pneumonia vaccine, covid19 vaccine, flu vaccine as appropriate. DVT prophylaxis - Lovenox 40mg sc daily. COPD - Brovana 15mcg q12h, Duoneb 3ml 4x/day, Albuterol 2 puffs Q4h prn. Diabetic polyneuropathy - Gabapentin 100mg tidcm. Hypertension - Metoprolol succinate 50mg daily, HCTZ 25mg daily. Diabetes Mellitus II - Metformin 500mg daily. Overactive bladder - Oxybutynin 5mg daily. Restless Leg syndrome - Mirapex 0.75mg qhs. 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
[2022-12-15] MEDS: Pramipexole Di-HCl 0.25 MG Tablet 0.75 MG PO (20:50)
--- NOTE | 2022-12-15 23:35 | EKG12_ITS ---
Test Reason : CHEST PAIN Blood Pressure : / mmHG Vent. Rate : 105 BPM Atrial Rate : 107 BPM P-R Int : 000 ms QRS Dur : 082 ms QT Int : 352 ms P-R-T Axes : 000 017 032 degrees QTc Int : 465 ms Sinus tachycardia Abnormal ECG When compared with ECG of 10-DEC-2022 18:25, Junctional rhythm has replaced Sinus rhythm Confirmed by FABIANO MISTRY, TAIWO ([id number]), bpm analyst ALEIDA HARRIS ([id number]) on 12/17/2022 10:47:35 AM Referred By: Gustavo Justice Confirmed By:TAIWO MARIO MD
[2022-12-15 23:42] VITALS: BP 140/78; PULSE 103; RESP 20; TEMP 36.9; O2SAT 94
--- NOTE | 2022-12-15 23:43 | NURSING ---
Addendum entered by Micheline Nguyễn 12/16/22 00:01: EKG completed by respiratory. Pt states she feels much better with having her head elevated. Vital signs reassessed and have improved. Note left for Dr. Justice. Original Note: Pt used call light and stated she was having chest pain. Upon assessment, pt was breathing rapidly and stated it felt like something heavy was sitting on her chest. Head elevated. Chest pain rated at an 8/10. Vital signs assessed and documented. EKG ordered.
[2022-12-15 23:59] VITALS: BP 121/74; PULSE 89; RESP 16; O2SAT 95
[2022-12-16 05:54] LABS: Absolute Lymphocyte Count 1.03 X10^3/uL (0.83-4.51); Absolute Neutrophil Count 4.4 X10^3/uL (2.0-7.7); Basophil# 0.07 X10^3/uL; Eosinophil# 0.24 X10^3/uL; Eosinophils% 3.6 % (0-5); Hematocrit 35.2 % (37-47); Hemoglobin 10.8 g/dL (12.0-15.0); Lymphocyte # 1.03 X10^3/ul (0.83-4.51); Lymphocyte % 15.4 % (19-41); Mean Corp Hgb Conc 30.7 g/dL (32-36); Mean Corpuscular Hgb 30.4 pg (27.0-32.0); Mean Corpuscular Volume 99.2 fL (81-99); Mean Platelet Vol. 8.6 fl (6.2-12.0); Monocyte# 0.77 X10^3/uL; Monocyte% 11.5 % (0-10); NRBC Flagged by Analyzer 0 % (0-5); Neutrophil # 4.44 X10^3/uL (2.7-7.7); Neutrophil % 66.7 % (47-70); Platelet Count 292 K/mm3 (150-450); RBC Distribution Width CV 13.2 % (11.6-14.6); RBC Distribution Width SD 48.3 fl (35.1-43.9); Red Blood Count 3.55 M/mm3 (4.2-5.4); White Blood Count 6.7 K/mm3 (4.4-11.0)
[2022-12-16 06:19] VITALS: BP 170/89; PULSE 106
[2022-12-16] MEDS: Oxybutynin 5 MG Tablet PO (06:19)
[2022-12-16] MEDS: Metoprolol(XL)Succ 50 MG Tablet PO (06:19)
[2022-12-16] MEDS: hydroCHLOROthiazide 25 MG Tablet PO ×2 (06:19→21:01)
[2022-12-16] MEDS: Sertraline 50 MG Tablet PO (06:19)
[2022-12-16] MEDS: Senna/Docusate Sodium 1 Tablet PO ×2 (06:20→17:56)
[2022-12-16 06:22] LABS: Anion Gap 3 (5-15); BUN 20 mg/dL (7-18); BUN/Creat Ratio 25.1 RATIO (10-20); Calcium,Total 8.9 mg/dL (8.5-10.1); Chloride 96 mmol/L (98-107); EST Glomerular Filtration Rate 75 mL/min (>60); Est Glom Filt Rate - Afr Amer 90 mL/min (>60); Estimated Creatinine Clearance 48.06 ml/min; Glucose 131 mg/dL (74-106); Potassium 3.8 mmol/L (3.5-5.1); Sodium Level 136 mmol/L (136-145)
[2022-12-16 06:41] LABS: Bedside Glucose 130 mg/dL (74-106)
[2022-12-16] MEDS: metFORMIN HCl 500 MG Tablet PO (08:18)
[2022-12-16] MEDS: Gabapentin 100 MG Capsule PO ×3 (08:18→17:56)
[2022-12-16 09:30] VITALS: PULSE 104; RESP 20; O2SAT 96
[2022-12-16] MEDS: ARFORMOTEROL TARTRATE 15 MCG/2 ML INHALATION ×2 (09:33→21:40)
[2022-12-16 10:24] VITALS: BP 123/71; PULSE 94; RESP 19; TEMP 37.1; O2SAT 93
[2022-12-16] MEDS: Tuberculin,Purif.prot.deriv. 50 TU/ML Vial 0.1 ML ID (10:27)
--- NOTE | 2022-12-16 13:47 | PCM.PN.DRR ---
TCU RX Drug Regimen Review Subjective/Objective Subjective/Objective: Subjective: 77 year old female hospitalized for urinary tract infection, acute kidney injury, occult blood in stool. admitted to TCU with debility. here for rehabilitation, strengthening, prior to discharge home alone. Objective: Allergies lisinopril Adverse Reaction (Intermediate, Verified 12/10/22 23:21) cough pregabalin [From Lyrica] Adverse Reaction (Verified 12/10/22 23:21) Swelling Current Medications Generic Name Dose Route Start Last Admin Trade Name Freq PRN Reason Stop Dose Admin Acetaminophen 1,000 mg 12/15/22 15:53 Acetaminophen 500 Mg Tablet PO Q6H PRN PRN Pain Score 1-3 Albuterol Sulfate 2 puff 12/15/22 16:27 Albuterol Ih (6.7 Gm) 1 Puff Inhaler INHALATION Q4H PRN PRN Sob &/Or Wheezing Bisacodyl 10 mg 12/15/22 16:10 Bisacodyl 10 Mg Suppository RC DAILY PRN CONSTIPATION Gabapentin 100 mg 12/15/22 17:45 12/16/22 11:56 Gabapentin 100 Mg Capsule PO 100 mg TIDCM DIAZ Administration Hydrochlorothiazide 25 mg 12/16/22 22:00 Hydrochlorothiazide 25 Mg Tablet PO QHS DIAZ Magnesium Citrate 300 ml 12/15/22 20:30 Magnesium Citrate 300 Ml PO X1 PRN Constipation Metformin HCl 500 mg 12/16/22 08:00 12/16/22 08:18 Metformin Hcl 500 Mg Tablet PO 500 mg DAILYCM DIAZ Administration Metoprolol Succinate 50 mg 12/16/22 06:00 12/16/22 06:19 Metoprolol(Xl)Succ 50 Mg Tablet PO 50 mg DAILY DIAZ Administration Oxybutynin Chloride 5 mg 12/16/22 06:00 12/16/22 06:19 Oxybutynin 5 Mg Tablet PO 5 mg DAILY DIAZ Administration Pramipexole Dihydrochloride 0.75 mg 12/15/22 22:00 12/15/22 20:50 Pramipexole Di-Hcl 0.25 Mg Tablet PO 0.75 mg QHS DIAZ Administration Senna/Docusate Sodium 1 tablet 12/15/22 20:45 12/16/22 06:20 Senna/Docusate Sodium 1 Tablet PO 1 tablet BID DIAZ Administration Sertraline HCl 50 mg 12/16/22 06:00 12/16/22 06:19 Sertraline 50 Mg Tablet PO 50 mg DAILY DIAZ Administration Tuberculin PPD 0.1 ml 12/23/22 10:00 Tuberculin,Purif.Prot.Deriv. 50 Tu/Ml Vial ID 12/23/22 10:01 X1 ONE Problem List (Updated 12/15/22 @ 20:[address] Gustavo Justice MD) Diabetic polyneuropathy (Acute) Depression (Acute) Overactive bladder (Acute) Blood in stool (Acute) Urinary tract infection (Acute) CATHI (acute kidney injury) (Acute) Restless leg syndrome (Acute) Diabetes mellitus (Acute) Osteoarthritis (Acute) Hypertension (Chronic) Chronic obstructive pulmonary disease (Chronic) Debility (Acute) Vital Signs Temp Pulse Resp BP Pulse Ox O2 Del Method O2 Flow Rate 98.7 F 94 19 H 123/71 H 93 Nasal Cannula 3 12/16/22 10:24 12/16/22 10:24 12/16/22 10:24 12/16/22 10:24 12/16/22 10:24 12/16/22 10:24 12/16/22 11:08 Oxygen Flow Rate (L/min) 3 Oxygen Delivery Method Nasal Cannula Weight: 90.293 kg Body Mass Index (BMI) 36.6 Sodium 136 mmol/L (136-145) 12/16/22 05:33 Potassium 3.8 mmol/L (3.5-5.1) 12/16/22 05:33 Chloride 96 mmol/L (98-107) L 12/16/22 05:33 Carbon Dioxide 37.0 mmol/L (21.0-32.0) H 12/16/22 05:33 Anion Gap 3 (5-15) L 12/16/22 05:33 BUN 20 mg/dL (7-18) H 12/16/22 05:33 Creatinine 0.80 mg/dL (0.55-1.02) 12/16/22 05:33 Est GFR (MDRD) Af Amer 90 mL/min (>60) 12/16/22 05:33 Est GFR (MDRD) Non-Af 75 mL/min (>60) 12/16/22 05:33 BUN/Creatinine Ratio 25.1 RATIO (10-20) H 12/16/22 05:33 Glucose 131 mg/dL (74-106) H 12/16/22 05:33 Assessment & Plan: 1. COPD: Albuterol sulfate 90 mcg/actuation 2 puff Q4H PRN,?Arformoterol 15 mcg/2 ml solution for nebulization 15 mcg Q12H. Please continue to monitor use of rescue inhaler, heart rate, and frequency of exacerbations. 2. Edema of lower extremities: Hydrochlorothiazide 25 mg PO QHS. Please continue to monitor fluid retention in legs and urine output, electrolytes, and renal function. 3. DVT prophylaxis: Lovenox 40 mg SC daily. Please continue to monitor CrCl (last CrCl 48mL/min), blood in urine/stool and S/S bleeding/bruising. 4. Hypertension:Metoprolol succinate 50 mg PO daily, Hydrochlorothiazide 25 mg PO QHS. Please continue to monitor BP(range 121-170/71-89), pulse (range 89-106) and electrolyte disturbances?(labs 12/16/22 WNL) 5. Fibromyalgia: Gabapentin 100 mg PO TID. Please continue to monitor pain levels and flare-ups. 6.Right knee pain: Acetaminophen 500 mg PO q6h. Continue to monitor pain levels and daily acetaminophen intake 7. RLS (Restless leg syndrome):Pramipexole 0.75 mg PO QHS. Please continue to monitor for symptoms of restless leg syndrome, medication effectiveness. 8. Diabetes mellitus type 2: Metformin 500 mg PO Daily. Please continue to monitor Hgb A1c values (goal of 7) and blood sugar levels (goal 80-130 before meals) 9.Bowel: Senna/ docusate 1 Tab PO BID, Magnesium Citrate 300 mL PO Daily PRN, Bisacodyl 10 mg tablet: 1 Tab PO Daily PRN. Please continue to monitor for diarrhea, constipation and electrolyte disturbances 10. OAB: Oxybutynin chloride 5 mg PO Daily. Monitor for constipation and anticholinergic side effects Assessment & Plan for psychotropic medications:? 11. Depression: Sertraline 50 mg PO Daily. Please consider a GDR by 07/2023 if clinically indicated, thank you. Please monitor for serotonin syndrome and breakthrough depression Medication chart reviewed. The following medication irregularities/ issues were identified: 1. Depression: Sertraline 50 mg PO Daily. Please consider a GDR by 07/2023 if clinically indicated, thank you. Please monitor for serotonin syndrome and breakthrough depression 2.Patient does not have an A1c value on file, recommended getting an A1c value every 3 months.? Date Date of Note:: 12/16/22
--- NOTE | 2022-12-16 16:04 | CHAPLAIN ---
Type of Pastoral Visit _x__ Initial Visit ___ Follow-up Visit ___ On-call Visit ___ General Patient Visit ___ Spiritual Assessment ___ Family Conference ___ Bereavement ___ Rapid Response ___ Code Blue ___ Other (describe below) Pastoral Care Referral From _x__ Patient ___ Family ___ Nurse ___ Physician ___ Customer Care Assistant ___ Informatics Consultant ___ Other (describe below) Sacrament/Intervention _x__ Active listening ___ Anointing ___ Caodaism ___ Bereavement ___ Communion ___ Minnie exploration ___ _x__ Life review _x__ Prayer ___ Reconciliation ___ Sacrament of Sick _x__ Supportive presence ___ Wedding ___ Other (describe below) Pastoral Comments patient speaks of her weakness and concerns for living at home; pt does have a daughter that lives with her and thus makes it possible to be there; pt gives some life review; pt goal is to gain strength and walk; pt is expressive that support, visit, listening, and prayer were helpful and meaningful for her today
--- NOTE | 2022-12-16 16:52 | CASEMGMT ---
Social Work Met with patient to complete initial assessment. Pt known to this worker from previous stay. Updated assessment. Verified/updated contacts. Pt provided this worker with copies of advanced directives. Copies placed on chart. Discussed code status and MOLST. Pt wishes to be full code. MOLST placed in Dr folder. Educated to [facility] insurance with [employer] 12/17 and continued stay is not guaranteed with each review, with noted copays 21-100 have $196/day copay. Pt's goal is to return home alone at [facility]. SW will continue to follow for DC planning. IRMA MichelW
[2022-12-16 20:45] VITALS: O2SAT 93
[2022-12-16] MEDS: Pramipexole Di-HCl 0.25 MG Tablet 0.75 MG PO (20:59)
[2022-12-16 21:07] VITALS: BP 144/83; PULSE 73; O2SAT 93
[2022-12-16 21:40] VITALS: RESP 18
[2022-12-17 05:58] VITALS: BP 158/81; PULSE 85
[2022-12-17] MEDS: Metoprolol(XL)Succ 50 MG Tablet PO (05:58)
[2022-12-17] MEDS: Oxybutynin 5 MG Tablet PO (05:58)
[2022-12-17] MEDS: Sertraline 50 MG Tablet PO (05:58)
[2022-12-17] MEDS: Senna/Docusate Sodium 1 Tablet PO (05:58)
[2022-12-17 07:20] VITALS: PULSE 96; RESP 20; O2SAT 94
[2022-12-17] MEDS: ARFORMOTEROL TARTRATE 15 MCG/2 ML INHALATION ×2 (07:20→19:30)
[2022-12-17] MEDS: Gabapentin 100 MG Capsule PO ×3 (08:42→17:51)
[2022-12-17] MEDS: metFORMIN HCl 500 MG Tablet PO (08:42)
[2022-12-17 10:00] VITALS: PULSE 95; O2SAT 93
--- NOTE | 2022-12-17 12:07 | NURSING ---
Wildlife Technician Note: Activity Asset: Dion Chau is independent in her choice of daily activities. She has her smartphone and family will bring her laptop. She stated she was not interested in group activities however family was in there and stated they would like her to try small group activities. She will welcome the asset management lead and therapy dog in her room. Staff will continue to remind her of activities and respect her right to say no.
[2022-12-17 14:40] VITALS: BP 146/84; PULSE 75; RESP 16; TEMP 36.5; O2SAT 96
[2022-12-17] MEDS: guaiFENesin 1,200 MG Tablet 1200 MG PO (18:43)
[2022-12-17 19:28] VITALS: PULSE 90; RESP 16; O2SAT 94
[2022-12-17 21:00] VITALS: BP 127/60; PULSE 81; RESP 16; O2SAT 91
[2022-12-17] MEDS: Pramipexole Di-HCl 0.25 MG Tablet 0.75 MG PO (21:02)
[2022-12-18] VITALS (7 sets, daily range): BP systolic 122–136; BP diastolic 68–77; PULSE 76–84; RESP 16–18; TEMP 37; O2SAT 3–96
[2022-12-18] MEDS: Senna/Docusate Sodium 1 Tablet PO (05:17)
[2022-12-18] MEDS: Sertraline 50 MG Tablet PO (05:17)
[2022-12-18] MEDS: Oxybutynin 5 MG Tablet PO (05:17)
[2022-12-18] MEDS: Metoprolol(XL)Succ 50 MG Tablet PO (05:17)
[2022-12-18] MEDS: guaiFENesin 1,200 MG Tablet 1200 MG PO ×2 (05:17→17:31)
[2022-12-18 06:45] LABS: Bedside Glucose 124 mg/dL (74-106)
[2022-12-18] MEDS: metFORMIN HCl 500 MG Tablet PO (07:38)
[2022-12-18] MEDS: Gabapentin 100 MG Capsule PO ×3 (07:38→17:31)
[2022-12-18] MEDS: Acetaminophen 500 MG Tablet 1000 MG PO (16:23)
[2022-12-18 17:23] LABS: Bedside Glucose 97 mg/dL (74-106)
[2022-12-18] MEDS: MELATONIN 10 MG TABLET PO (21:18)
[2022-12-18] MEDS: hydroCHLOROthiazide 25 MG Tablet PO (21:18)
[2022-12-18] MEDS: Pramipexole Di-HCl 0.25 MG Tablet 0.75 MG PO (21:18)
--- NOTE | 2022-12-18 21:26 | NURSING ---
Respiratory contacted via phone and notified of order for overnight pulse ox
[2022-12-19] VITALS (7 sets, daily range): BP systolic 121–150; BP diastolic 74–75; PULSE 71–84; RESP 18–24; TEMP 36.3–36.8; O2SAT 93–97
[2022-12-19] MEDS: Oxybutynin 5 MG Tablet PO (06:12)
[2022-12-19] MEDS: Metoprolol(XL)Succ 50 MG Tablet PO (06:12)
[2022-12-19] MEDS: Senna/Docusate Sodium 1 Tablet PO (06:12)
[2022-12-19] MEDS: Sertraline 50 MG Tablet PO (06:12)
[2022-12-19] MEDS: guaiFENesin 1,200 MG Tablet 1200 MG PO ×2 (06:12→17:52)
[2022-12-19 06:30] LABS: Bedside Glucose 135 mg/dL (74-106)
[2022-12-19] MEDS: ARFORMOTEROL TARTRATE 15 MCG/2 ML INHALATION ×2 (06:33→19:57)
--- NOTE | 2022-12-19 08:21 | RAD_ITS ---
STUDY: X-RAY - ABDOMEN/PELVIS REASON FOR EXAM: Female, 77 years old. Diarrhea TECHNIQUE: Single AP view of the abdomen / pelvis. COMPARISON: None. FINDINGS: Normal visualized lung bases. There is a moderate amount of colonic fecal material. The visualized liver, spleen and kidneys are grossly normal in size and morphology. Normal soft tissue structures. There are diffuse degenerative changes of the visualized lumbar spine. Minimal dextroscoliosis. Degenerative changes of both hip joints. RAD/Abdomen Single View IMPRESSION: Moderate amount of fecal material is seen in the colon. Electronically Signed: Darrius Reilly MD at 9:37 EDT ,
--- NOTE | 2022-12-19 08:42 | NURSING ---
off unit to xray for c/o loose stools, new orders prn xanax and imodium
[2022-12-19] MEDS: Gabapentin 100 MG Capsule PO ×3 (08:53→17:52)
[2022-12-19] MEDS: metFORMIN HCl 500 MG Tablet PO (08:53)
[2022-12-19] MEDS: Magnesium Citrate 300 ML PO (16:13)
[2022-12-19] MEDS: Pramipexole Di-HCl 0.25 MG Tablet 0.75 MG PO (20:30)
[2022-12-19] MEDS: MELATONIN 10 MG TABLET PO (20:30)
[2022-12-20] VITALS (7 sets, daily range): BP systolic 127–155; BP diastolic 68–76; PULSE 69–80; RESP 16–21; TEMP 36.4; O2SAT 93–97
[2022-12-20] MEDS: guaiFENesin 1,200 MG Tablet 1200 MG PO ×2 (04:57→17:40)
[2022-12-20] MEDS: Metoprolol(XL)Succ 50 MG Tablet PO (04:57)
[2022-12-20] MEDS: Oxybutynin 5 MG Tablet PO (04:57)
[2022-12-20] MEDS: Sertraline 50 MG Tablet PO (04:57)
[2022-12-20] MEDS: Gabapentin 100 MG Capsule PO ×3 (08:07→17:40)
[2022-12-20] MEDS: Loperamide 2 MG Capsule PO (08:07)
[2022-12-20] MEDS: metFORMIN HCl 500 MG Tablet PO (08:08)
[2022-12-20] MEDS: Acetaminophen 500 MG Tablet 1000 MG PO (10:10)
[2022-12-20] MEDS: ARFORMOTEROL TARTRATE 15 MCG/2 ML INHALATION (18:56)
[2022-12-20] MEDS: MELATONIN 10 MG TABLET PO (20:45)
[2022-12-20] MEDS: hydroCHLOROthiazide 25 MG Tablet PO (20:45)
[2022-12-20] MEDS: Pramipexole Di-HCl 0.25 MG Tablet 0.75 MG PO (20:45)
[2022-12-21] MEDS: Sertraline 50 MG Tablet PO (05:33)
[2022-12-21] MEDS: guaiFENesin 1,200 MG Tablet 1200 MG PO ×2 (05:33→16:56)
[2022-12-21 05:34] VITALS: BP 143/67; PULSE 76
[2022-12-21] MEDS: Oxybutynin 5 MG Tablet PO (05:34)
[2022-12-21] MEDS: Senna/Docusate Sodium 1 Tablet PO ×2 (05:34→16:56)
[2022-12-21] MEDS: Metoprolol(XL)Succ 50 MG Tablet PO (05:34)
[2022-12-21 06:53] LABS: Bedside Glucose 111 mg/dL (74-106)
[2022-12-21 06:55] VITALS: PULSE 72; RESP 23; O2SAT 90
[2022-12-21] MEDS: ARFORMOTEROL TARTRATE 15 MCG/2 ML INHALATION ×2 (06:55→19:40)
[2022-12-21] MEDS: metFORMIN HCl 500 MG Tablet PO (08:00)
[2022-12-21] MEDS: Gabapentin 100 MG Capsule PO ×3 (08:00→16:56)
[2022-12-21 10:00] VITALS: RESP 20
--- NOTE | 2022-12-21 11:00 | NURSING ---
pt refused mag citrate, feels that her bowels are moving better, not as loose.
[2022-12-21 14:38] VITALS: BP 118/62; PULSE 71; RESP 15; TEMP 36.8; O2SAT 96
[2022-12-21 19:40] VITALS: PULSE 78; RESP 22; O2SAT 97
[2022-12-21] MEDS: Pramipexole Di-HCl 0.25 MG Tablet 0.75 MG PO (21:49)
[2022-12-21] MEDS: MELATONIN 10 MG TABLET PO (21:49)
[2022-12-22 06:20] VITALS: BP 146/71; PULSE 79
[2022-12-22] MEDS: Senna/Docusate Sodium 1 Tablet PO ×2 (06:20→17:39)
[2022-12-22] MEDS: Metoprolol(XL)Succ 50 MG Tablet PO (06:20)
[2022-12-22] MEDS: guaiFENesin 1,200 MG Tablet 1200 MG PO ×2 (06:20→17:39)
[2022-12-22] MEDS: Oxybutynin 5 MG Tablet PO (06:20)
[2022-12-22] MEDS: Sertraline 50 MG Tablet PO (06:22)
[2022-12-22 06:45] LABS: Bedside Glucose 117 mg/dL (74-106)
--- NOTE | 2022-12-22 07:04 | NURSING ---
Pt. requests assist to bathroom, becomes fatigued sitting up in bed. Patient observed to fatigue easily and become SOB with most activity. Patient states not new, stating I'm always like this at home. Written communication left for Dr. Justice requesting if palliative services would be appropriate at this time. No distress observed or reported. O2 on at 3L via NC. Presents in recliner per preference. Call light in reach.
[2022-12-22] MEDS: ARFORMOTEROL TARTRATE 15 MCG/2 ML INHALATION (07:26)
[2022-12-22 07:27] VITALS: PULSE 74; RESP 20; O2SAT 95
[2022-12-22] MEDS: Gabapentin 100 MG Capsule PO ×3 (08:07→17:39)
[2022-12-22] MEDS: metFORMIN HCl 500 MG Tablet PO (08:07)
[2022-12-22] MEDS: ALPRAZolam 0.25 MG Tablet 0.125 MG PO (09:49)
--- NOTE | 2022-12-22 11:58 | NURSING ---
Support Director Note; MDS Complete
[2022-12-22 14:52] VITALS: BP 118/64; PULSE 72; RESP 14; TEMP 36.6; O2SAT 96
[2022-12-22 19:40] VITALS: PULSE 72; RESP 16
[2022-12-22 20:53] VITALS: BP 120/70; PULSE 78
[2022-12-22] MEDS: Acetaminophen 500 MG Tablet 1000 MG PO (21:01)
[2022-12-22] MEDS: Pramipexole Di-HCl 0.25 MG Tablet 0.75 MG PO (21:02)
[2022-12-22] MEDS: MELATONIN 10 MG TABLET PO (21:02)
[2022-12-23 05:48] VITALS: BP 123/67; PULSE 70
[2022-12-23] MEDS: Senna/Docusate Sodium 1 Tablet PO ×2 (05:48→18:14)
[2022-12-23] MEDS: Metoprolol(XL)Succ 50 MG Tablet PO (05:48)
[2022-12-23] MEDS: guaiFENesin 1,200 MG Tablet 1200 MG PO ×2 (05:48→18:14)
[2022-12-23] MEDS: Oxybutynin 5 MG Tablet PO (05:48)
[2022-12-23] MEDS: Sertraline 50 MG Tablet PO (05:48)
[2022-12-23] MEDS: Acetaminophen 500 MG Tablet 1000 MG PO ×2 (05:56→12:43)
[2022-12-23 05:57] LABS: Absolute Lymphocyte Count 1.02 X10^3/uL (0.83-4.51); Absolute Neutrophil Count 3.5 X10^3/uL (2.0-7.7); Basophil# 0.05 X10^3/uL; Basophil% 0.9 % (0-1); Eosinophil# 0.16 X10^3/uL; Hematocrit 32.1 % (37-47); Lymphocyte # 1.02 X10^3/ul (0.83-4.51); Mean Corp Hgb Conc 31.2 g/dL (32-36); Mean Corpuscular Hgb 31.4 pg (27.0-32.0); Mean Corpuscular Volume 100.9 fL (81-99); Mean Platelet Vol. 8.9 fl (6.2-12.0); Monocyte# 0.65 X10^3/uL; Monocyte% 12.1 % (0-10); NRBC Flagged by Analyzer 0 % (0-5); Neutrophil # 3.46 X10^3/uL (2.7-7.7); Neutrophil % 64.6 % (47-70); Platelet Count 282 K/mm3 (150-450); RBC Distribution Width CV 13.2 % (11.6-14.6); Red Blood Count 3.18 M/mm3 (4.2-5.4); White Blood Count 5.4 K/mm3 (4.4-11.0)
[2022-12-23 06:17] LABS: Bedside Glucose 107 mg/dL (74-106)
[2022-12-23 06:27] LABS: Anion Gap 1 (5-15); BUN 23 mg/dL (7-18); BUN/Creat Ratio 25.1 RATIO (10-20); Calcium,Total 8.7 mg/dL (8.5-10.1); Chloride 96 mmol/L (98-107); Creatinine, Serum 0.92 mg/dL (0.55-1.02); EST Glomerular Filtration Rate 64 mL/min (>60); Est Glom Filt Rate - Afr Amer 77 mL/min (>60); Estimated Creatinine Clearance 41.79 ml/min; Glucose 120 mg/dL (74-106); Potassium 3.6 mmol/L (3.5-5.1); Sodium Level 139 mmol/L (136-145)
[2022-12-23] MEDS: ARFORMOTEROL TARTRATE 15 MCG/2 ML INHALATION ×2 (07:42→19:39)
[2022-12-23] MEDS: metFORMIN HCl 500 MG Tablet PO (08:03)
[2022-12-23] MEDS: Gabapentin 100 MG Capsule PO ×3 (08:03→18:14)
[2022-12-23 08:57] VITALS: BP 96/52; PULSE 81; RESP 20; TEMP 36.8; O2SAT 92
[2022-12-23 10:01] VITALS: BMI 36.8
[2022-12-23] MEDS: Tuberculin,Purif.prot.deriv. 50 TU/ML Vial 0.1 ML ID (10:04)
[2022-12-23 19:39] VITALS: PULSE 78; RESP 20; O2SAT 98
[2022-12-23 21:30] VITALS: BP 131/74; PULSE 71
[2022-12-23] MEDS: hydroCHLOROthiazide 25 MG Tablet PO (21:33)
[2022-12-23] MEDS: Pramipexole Di-HCl 0.25 MG Tablet 0.75 MG PO (21:33)
[2022-12-23] MEDS: MELATONIN 10 MG TABLET PO (21:33)
[2022-12-24] VITALS (7 sets, daily range): BP systolic 116–118; BP diastolic 60–76; PULSE 69–82; RESP 16–20; TEMP 36.9; O2SAT 95–98
[2022-12-24] MEDS: Oxybutynin 5 MG Tablet PO (06:01)
[2022-12-24] MEDS: guaiFENesin 1,200 MG Tablet 1200 MG PO ×2 (06:01→17:41)
[2022-12-24] MEDS: Acetaminophen 500 MG Tablet 1000 MG PO ×2 (06:01→16:02)
[2022-12-24] MEDS: Senna/Docusate Sodium 1 Tablet PO ×2 (06:01→17:41)
[2022-12-24] MEDS: Metoprolol(XL)Succ 50 MG Tablet PO (06:01)
[2022-12-24] MEDS: Sertraline 50 MG Tablet PO (06:01)
[2022-12-24 06:42] LABS: Bedside Glucose 111 mg/dL (74-106)
[2022-12-24] MEDS: Gabapentin 100 MG Capsule PO ×3 (08:22→17:40)
[2022-12-24] MEDS: metFORMIN HCl 500 MG Tablet PO (08:22)
[2022-12-24] MEDS: ARFORMOTEROL TARTRATE 15 MCG/2 ML INHALATION ×2 (09:32→19:30)
--- NOTE | 2022-12-24 10:00 | CASEMGMT ---
Social Work IDT met with patient and two daughters for care plan meeting. Discussed patient's progress in PT/OT/SN. Educated to [employer] insurance with [employer] 12/30, EDC 01/02, with a $196/day copay from days 21-100. Pt's O2 is old. Goal is to return home with dtr. Dtr moved in with pt to assist in June. SW to coordinate FWW and ongoing therapy. Will continue to follow. Evangelina Pacheco, IRMA GRAYW
[2022-12-24] MEDS: Pramipexole Di-HCl 0.25 MG Tablet 0.75 MG PO (20:48)
[2022-12-24] MEDS: MELATONIN 10 MG TABLET PO (20:49)
[2022-12-25 04:13] VITALS: BP 122/69; PULSE 72
[2022-12-25] MEDS: Sertraline 50 MG Tablet PO (04:13)
[2022-12-25] MEDS: Acetaminophen 500 MG Tablet 1000 MG PO ×2 (04:13→22:37)
[2022-12-25] MEDS: Metoprolol(XL)Succ 50 MG Tablet PO (04:13)
[2022-12-25] MEDS: guaiFENesin 1,200 MG Tablet 1200 MG PO ×2 (04:13→17:34)
[2022-12-25] MEDS: Oxybutynin 5 MG Tablet PO (04:14)
[2022-12-25] MEDS: Senna/Docusate Sodium 1 Tablet PO ×2 (04:14→17:34)
[2022-12-25 06:31] LABS: Bedside Glucose 113 mg/dL (74-106)
[2022-12-25] MEDS: ARFORMOTEROL TARTRATE 15 MCG/2 ML INHALATION ×2 (07:27→19:46)
[2022-12-25 07:32] VITALS: PULSE 71; RESP 18; O2SAT 97
--- NOTE | 2022-12-25 07:49 | MDS.RN ---
Information for the mds was obtained from review of the clinical record, interview of resident, staff, and direct observation of resident's care.
[2022-12-25] MEDS: Gabapentin 100 MG Capsule PO ×3 (08:58→17:34)
[2022-12-25] MEDS: metFORMIN HCl 500 MG Tablet PO (08:58)
[2022-12-25 09:38] VITALS: BP 112/63; PULSE 73; RESP 19; TEMP 36.5; O2SAT 97
[2022-12-25] MEDS: Arthritis Pain Compound 60 CLICK TUBE TOPICAL ×2 (12:19→17:34)
[2022-12-25 19:46] VITALS: PULSE 72; RESP 18
[2022-12-25 22:35] VITALS: BP 139/70; PULSE 77; RESP 16; O2SAT 3
[2022-12-25] MEDS: Nystatin Powder 15gm Bottle 1 APPLIC TOPICAL (22:37)
[2022-12-25] MEDS: Pramipexole Di-HCl 0.25 MG Tablet 0.75 MG PO (22:38)
[2022-12-25] MEDS: hydroCHLOROthiazide 25 MG Tablet PO (22:38)
[2022-12-25] MEDS: MELATONIN 10 MG TABLET PO (22:39)
[2022-12-26 04:57] VITALS: BP 149/84; PULSE 78
[2022-12-26] MEDS: Metoprolol(XL)Succ 50 MG Tablet PO (04:57)
[2022-12-26] MEDS: Nystatin Powder 15gm Bottle 1 APPLIC TOPICAL ×2 (04:57→17:09)
[2022-12-26] MEDS: guaiFENesin 1,200 MG Tablet 1200 MG PO ×2 (04:58→17:07)
[2022-12-26] MEDS: Senna/Docusate Sodium 1 Tablet PO ×2 (04:58→17:08)
[2022-12-26] MEDS: Arthritis Pain Compound 60 CLICK TUBE TOPICAL ×2 (04:58→17:09)
[2022-12-26] MEDS: Oxybutynin 5 MG Tablet PO (04:58)
[2022-12-26] MEDS: Sertraline 50 MG Tablet PO (04:58)
[2022-12-26 05:04] VITALS: RESP 18; O2SAT 90
--- NOTE | 2022-12-26 05:07 | NURSING ---
Continues to c/o left shoulder pain despite routine arthritis compound cream as ordered, states difficult to move and believes therapy movements Aggravate it. Written communication left for
[2022-12-26] MEDS: Albuterol IH (6.7 GM) 1 PUFF INHALER 2 PUFF INHALATION (05:16)
[2022-12-26 06:36] LABS: Bedside Glucose 125 mg/dL (74-106)
[2022-12-26 06:44] VITALS: PULSE 79; RESP 20; O2SAT 97
[2022-12-26] MEDS: ARFORMOTEROL TARTRATE 15 MCG/2 ML INHALATION ×2 (06:44→19:27)
[2022-12-26] MEDS: metFORMIN HCl 500 MG Tablet PO (08:57)
[2022-12-26] MEDS: Gabapentin 100 MG Capsule PO ×3 (08:58→17:12)
--- NOTE | 2022-12-26 09:20 | RAD_ITS ---
STUDY: X-RAY - LEFT SHOULDER REASON FOR EXAM: Female, 77 years old. Pain. TECHNIQUE: 2 view(s) of the shoulder. COMPARISON: None. FINDINGS: Marked osteopenia. Severe arthrosis of the glenohumeral joint with complete loss of articular cartilage, subchondral cyst formation and subchondral sclerosis with osteophytes. Mild arthrosis of the AC joint. Sclerosis and cystic changes of the humeral head. Normal soft tissues. Normal visualized pulmonary apex. RAD/Shoulder min 2 Views IMPRESSION: Osteopenia with severe arthrosis of the glenohumeral joint and mild arthrosis of the AC joint. No acute abnormality or erosive changes. Electronically Signed: Brady Merida MD at 9:38 EDT ,
--- NOTE | 2022-12-26 09:59 | NURSING ---
blue leather setter reporting pt continues to c/o LT shoulder pain despite compound cream, difficulty with movement. New orders by DR Justice for medrol dose joselin, xray & sched tylenol
--- NOTE | 2022-12-26 11:42 | CASEMGMT ---
Social Work Dr Justice requesting palliative consult for pt. Order entered. Sent referral secure email to [facility]. IRMA MichelW
[2022-12-26] MEDS: MethylPREDNISolone DosePak 4 MG BOX PO ×3 (12:18→22:17)
[2022-12-26] MEDS: Acetaminophen 500 MG Tablet 1000 MG PO ×2 (14:50→22:18)
[2022-12-26 15:07] VITALS: BP 147/84; PULSE 81; RESP 20; TEMP 36.8; O2SAT 92
[2022-12-26 17:15] VITALS: PULSE 72; RESP 18; O2SAT 96
[2022-12-26 19:27] VITALS: PULSE 82; RESP 20
[2022-12-26] MEDS: hydroCHLOROthiazide 25 MG Tablet PO (22:19)
[2022-12-26] MEDS: Pramipexole Di-HCl 0.25 MG Tablet 0.75 MG PO (22:21)
[2022-12-26] MEDS: MELATONIN 10 MG TABLET PO (22:21)
[2022-12-26] MEDS: traMADol 50 MG Tablet PO (22:24)
[2022-12-27] MEDS: guaiFENesin 1,200 MG Tablet 1200 MG PO ×2 (05:43→17:29)
[2022-12-27] MEDS: Acetaminophen 500 MG Tablet 1000 MG PO ×3 (05:43→20:55)
[2022-12-27 05:44] VITALS: BP 136/71; PULSE 79
[2022-12-27] MEDS: Nystatin Powder 15gm Bottle 1 APPLIC TOPICAL ×2 (05:44→17:29)
[2022-12-27] MEDS: Metoprolol(XL)Succ 50 MG Tablet PO (05:44)
[2022-12-27] MEDS: Senna/Docusate Sodium 1 Tablet PO (05:44)
[2022-12-27] MEDS: Oxybutynin 5 MG Tablet PO (05:44)
[2022-12-27] MEDS: Arthritis Pain Compound 60 CLICK TUBE TOPICAL ×2 (05:45→17:29)
[2022-12-27] MEDS: Sertraline 50 MG Tablet PO (05:46)
[2022-12-27 07:32] VITALS: PULSE 80; RESP 18; O2SAT 93
[2022-12-27] MEDS: ARFORMOTEROL TARTRATE 15 MCG/2 ML INHALATION (07:32)
[2022-12-27 07:49] LABS: Bedside Glucose 105 mg/dL (74-106)
[2022-12-27] MEDS: MethylPREDNISolone DosePak 4 MG BOX PO ×4 (08:16→20:52)
[2022-12-27] MEDS: Gabapentin 100 MG Capsule PO ×3 (08:16→17:29)
[2022-12-27] MEDS: metFORMIN HCl 500 MG Tablet PO (08:16)
[2022-12-27 14:22] VITALS: BP 126/70; PULSE 72; RESP 18; TEMP 36.9; O2SAT 97
[2022-12-27 19:00] VITALS: PULSE 75; RESP 18
[2022-12-27 20:30] VITALS: O2SAT 96
[2022-12-27 20:45] VITALS: BP 137/62; PULSE 66
[2022-12-27] MEDS: Pramipexole Di-HCl 0.25 MG Tablet 0.75 MG PO (20:54)
[2022-12-27] MEDS: MELATONIN 10 MG TABLET PO (20:55)
[2022-12-28 05:54] VITALS: BP 134/87; PULSE 87
[2022-12-28] MEDS: guaiFENesin 1,200 MG Tablet 1200 MG PO ×2 (05:54→17:32)
[2022-12-28] MEDS: Acetaminophen 500 MG Tablet 1000 MG PO ×3 (05:54→21:36)
[2022-12-28] MEDS: Metoprolol(XL)Succ 50 MG Tablet PO (05:54)
[2022-12-28] MEDS: hydroCHLOROthiazide 25 MG Tablet PO (05:55)
[2022-12-28] MEDS: Oxybutynin 5 MG Tablet PO (05:55)
[2022-12-28] MEDS: Sertraline 50 MG Tablet PO (05:55)
[2022-12-28] MEDS: Nystatin Powder 15gm Bottle 1 APPLIC TOPICAL ×2 (05:56→21:39)
[2022-12-28] MEDS: Ammonium Lactate 225 gm Bottle 1 APPLIC TOPICAL ×2 (05:58→21:39)
--- NOTE | 2022-12-28 06:08 | NURSING ---
Arthritis compound cream to be applied after bathing this am. Will report to oncoming nurse.
[2022-12-28 06:50] LABS: Bedside Glucose 116 mg/dL (74-106)
[2022-12-28 07:38] VITALS: PULSE 74; RESP 16; O2SAT 93
[2022-12-28] MEDS: ARFORMOTEROL TARTRATE 15 MCG/2 ML INHALATION ×2 (07:38→19:10)
[2022-12-28] MEDS: metFORMIN HCl 500 MG Tablet PO (08:14)
[2022-12-28] MEDS: Gabapentin 100 MG Capsule PO ×3 (08:14→17:32)
[2022-12-28] MEDS: MethylPREDNISolone DosePak 4 MG BOX PO ×4 (08:14→21:36)
[2022-12-28] MEDS: Arthritis Pain Compound 60 CLICK TUBE TOPICAL (08:15)
[2022-12-28 10:00] VITALS: PULSE 84
[2022-12-28 14:37] VITALS: BP 114/66; PULSE 81; RESP 18; TEMP 37; O2SAT 96
[2022-12-28 19:10] VITALS: PULSE 68; RESP 18
[2022-12-28] MEDS: MELATONIN 10 MG TABLET PO (21:38)
[2022-12-28] MEDS: Pramipexole Di-HCl 0.25 MG Tablet 0.75 MG PO (21:38)
[2022-12-29] MEDS: Oxybutynin 5 MG Tablet PO (05:56)
[2022-12-29] MEDS: Acetaminophen 500 MG Tablet 1000 MG PO ×3 (05:57→21:29)
[2022-12-29] MEDS: guaiFENesin 1,200 MG Tablet 1200 MG PO ×2 (05:57→17:55)
[2022-12-29 05:58] VITALS: BP 150/75; PULSE 73
[2022-12-29] MEDS: hydroCHLOROthiazide 25 MG Tablet PO (05:58)
[2022-12-29] MEDS: Metoprolol(XL)Succ 50 MG Tablet PO (05:58)
[2022-12-29] MEDS: Sertraline 50 MG Tablet PO (05:58)
[2022-12-29 06:23] LABS: Bedside Glucose 112 mg/dL (74-106)
[2022-12-29 07:17] VITALS: PULSE 71; RESP 16; O2SAT 94
[2022-12-29] MEDS: ARFORMOTEROL TARTRATE 15 MCG/2 ML INHALATION ×2 (07:17→19:11)
[2022-12-29] MEDS: metFORMIN HCl 500 MG Tablet PO (08:46)
[2022-12-29] MEDS: MethylPREDNISolone DosePak 4 MG BOX PO ×3 (08:46→21:31)
[2022-12-29] MEDS: Arthritis Pain Compound 60 CLICK TUBE TOPICAL ×2 (08:46→17:55)
[2022-12-29] MEDS: Gabapentin 100 MG Capsule PO ×3 (08:46→17:55)
[2022-12-29 08:50] VITALS: BP 129/83; PULSE 79; RESP 19; TEMP 36.3; O2SAT 99
[2022-12-29] MEDS: Ammonium Lactate 225 gm Bottle 1 APPLIC TOPICAL ×3 (12:16→21:59)
[2022-12-29] MEDS: Nystatin Powder 15gm Bottle 1 APPLIC TOPICAL ×2 (12:17→21:33)
[2022-12-29 19:11] VITALS: PULSE 78; RESP 20
[2022-12-29 19:59] VITALS: PULSE 86; O2SAT 99
[2022-12-29] MEDS: traMADol 50 MG Tablet PO (21:26)
[2022-12-29] MEDS: Pramipexole Di-HCl 0.25 MG Tablet 0.75 MG PO (21:28)
[2022-12-29] MEDS: MELATONIN 10 MG TABLET PO (21:30)
[2022-12-30] MEDS: Arthritis Pain Compound 60 CLICK TUBE TOPICAL ×2 (05:32→17:21)
[2022-12-30 05:34] VITALS: BP 128/74; PULSE 79
[2022-12-30] MEDS: Acetaminophen 500 MG Tablet 1000 MG PO ×3 (05:34→21:47)
[2022-12-30] MEDS: guaiFENesin 1,200 MG Tablet 1200 MG PO ×2 (05:34→17:21)
[2022-12-30] MEDS: Oxybutynin 5 MG Tablet PO (05:34)
[2022-12-30] MEDS: Metoprolol(XL)Succ 50 MG Tablet PO (05:34)
[2022-12-30] MEDS: Sertraline 50 MG Tablet PO (05:34)
[2022-12-30 05:54] LABS: Absolute Lymphocyte Count 1.25 X10^3/uL (0.83-4.51); Absolute Neutrophil Count 2.9 X10^3/uL (2.0-7.7); Basophil# 0.05 X10^3/uL; Eosinophil# 0.16 X10^3/uL; Eosinophils% 3.1 % (0-5); Hemoglobin 10.6 g/dL (12.0-15.0); Lymphocyte # 1.25 X10^3/ul (0.83-4.51); Lymphocyte % 24.4 % (19-41); Mean Corp Hgb Conc 30.3 g/dL (32-36); Mean Corpuscular Hgb 30.5 pg (27.0-32.0); Mean Corpuscular Volume 100.6 fL (81-99); Mean Platelet Vol. 8.9 fl (6.2-12.0); Monocyte# 0.78 X10^3/uL; Monocyte% 15.2 % (0-10); NRBC Flagged by Analyzer 0 % (0-5); Neutrophil # 2.85 X10^3/uL (2.7-7.7); Neutrophil % 55.5 % (47-70); Platelet Count 256 K/mm3 (150-450); RBC Distribution Width CV 13.4 % (11.6-14.6); RBC Distribution Width SD 49.3 fl (35.1-43.9); Red Blood Count 3.48 M/mm3 (4.2-5.4); White Blood Count 5.1 K/mm3 (4.4-11.0)
[2022-12-30 06:21] LABS: Anion Gap 2 (5-15); BUN 24 mg/dL (7-18); BUN/Creat Ratio 26.4 RATIO (10-20); Calcium,Total 8.9 mg/dL (8.5-10.1); Chloride 94 mmol/L (98-107); Creatinine, Serum 0.91 mg/dL (0.55-1.02); EST Glomerular Filtration Rate 64 mL/min (>60); Est Glom Filt Rate - Afr Amer 78 mL/min (>60); Estimated Creatinine Clearance 42.25 ml/min; Glucose 101 mg/dL (74-106); Potassium 3.5 mmol/L (3.5-5.1); Sodium Level 136 mmol/L (136-145)
[2022-12-30 06:29] VITALS: PULSE 79; RESP 18; O2SAT 99
[2022-12-30 06:42] LABS: Bedside Glucose 101 mg/dL (74-106)
[2022-12-30] MEDS: Gabapentin 100 MG Capsule PO ×3 (08:06→17:21)
[2022-12-30] MEDS: metFORMIN HCl 500 MG Tablet PO (08:07)
[2022-12-30] MEDS: MethylPREDNISolone DosePak 4 MG BOX PO ×2 (08:07→21:49)
[2022-12-30 09:46] VITALS: BP 128/71; PULSE 73; RESP 19; TEMP 35.7; O2SAT 98
[2022-12-30] MEDS: Ammonium Lactate 225 gm Bottle 1 APPLIC TOPICAL ×2 (09:50→21:50)
[2022-12-30] MEDS: Nystatin Powder 15gm Bottle 1 APPLIC TOPICAL ×2 (09:50→21:49)
--- NOTE | 2022-12-30 11:46 | CASEMGMT ---
Addendum entered by Evangelina Pacheco 12/30/22 15:06: SN added to order Original Note: Social Work Insurance issued LCD 01/01, DC 01/02. SW spoke with pt. Pt agreeable. Confirmed pt's request for [facility] and FWW. Dtr to transport. SW phoned referral to [facility] PT/OT. Sent referral to [facility] via [employer]. Plan: DC home with dtr 01/02, [facility] PT/OT, FWW Evangelina Pacheco, PHOTOGRAPHIC HAND DEVELOPER CARDIOGRAPH OPERATOR
[2022-12-30 12:13] VITALS: BMI 37.0
[2022-12-30] MEDS: ARFORMOTEROL TARTRATE 15 MCG/2 ML INHALATION (19:05)
[2022-12-30 19:09] VITALS: PULSE 78; RESP 20
--- NOTE | 2022-12-30 19:44 | DS.PCM_ITS ---
Providers Date of Admission: 12/15/22 Primary Care Physician: Dr. Roderick Ryder MD Consultations 12/22/22 07:54 Consult: Hospice / Palliative Care Routine Consulting Provider: [facility] Reason for Consult: Palliative consult dyspnea on exertion, fatigue. EMERGENT Consult: No MD Notified: Yes Date Notified: 12/26/22 Time Notified: 10:41 Method of Notification: Text Comments:: psychotherapist social worker notified Reason For Visit: GENERALIZED WEAKNESS Diagnosis Discharge Diagnosis (1) Debility: Status: Acute Code(s): R53.81 - Other malaise (2) Urinary tract infection: Status: Acute Code(s): N39.0 - Urinary tract infection, site not specified (3) CATHI (acute kidney injury): Status: Resolved Code(s): N17.9 - Acute kidney failure, unspecified (4) Blood in stool: Status: Acute Code(s): K92.1 - Melena (5) Chronic obstructive pulmonary disease: Status: Chronic Code(s): J44.9 - Chronic obstructive pulmonary disease, unspecified Qualifiers: COPD type: unspecified COPD Qualified Code(s): J44.9 - Chronic obstructive pulmonary disease, unspecified (6) Osteoarthritis: Status: Acute Code(s): M19.90 - Unspecified osteoarthritis, unspecified site Qualifiers: Osteoarthritis location: multiple joints Osteoarthritis type: unspecified Qualified Code(s): M15.9 - Polyosteoarthritis, unspecified (7) Diabetes mellitus: Status: Acute Code(s): E11.9 - Type 2 diabetes mellitus without complications Qualifiers: Diabetes mellitus type: type 2 Diabetes mellitus watermaster insulin use: without watermaster use Diabetes mellitus complication status: with neurologic complications Diabetes mellitus complication detail: with polyneuropathy Qualified Code(s): E11.42 - Type 2 diabetes mellitus with diabetic polyneuropathy (8) Restless leg syndrome: Status: Acute Code(s): G25.81 - Restless legs syndrome (9) Hypertension: Status: Chronic Code(s): I10 - Essential (primary) hypertension Qualifiers: Hypertension type: primary hypertension Qualified Code(s): I10 - Essential (primary) hypertension (10) Overactive bladder: Status: Acute Code(s): N32.81 - Overactive bladder (11) Depression: Status: Acute Code(s): F32.9 - Major depressive disorder, single episode, unspecified (12) Diabetic polyneuropathy: Status: Acute Code(s): E11.42 - Type 2 diabetes mellitus with diabetic polyneuropathy Plan 77 year old female with below past medical history hospitalized for urinary tract infection, acute kidney injury, occult blood in stool, admitted to TCU with debility, here for rehabilitation, strengthening, prior to discharge home alone. * Debility - PT/OT. * Pain - Tylenol 1000mg q6h prn pain (1-3), * Bowel - senna/colace 1 tablet bid, Dulcolax 10mg pr daily prn, Magnesium citrate 300ml po x 1 prn. * Adult immunization - Administer pneumonia vaccine, covid19 vaccine, flu vaccine as appropriate. * DVT prophylaxis - Lovenox 40mg sc daily. * COPD - Brovana 15mcg q12h, Duoneb 3ml 4x/day, Albuterol 2 puffs Q4h prn. * Diabetic polyneuropathy - Gabapentin 100mg tidcm. * Hypertension - Metoprolol succinate 50mg daily, HCTZ 25mg daily. * Diabetes Mellitus II - Metformin 500mg daily. * Overactive bladder - Oxybutynin 5mg daily. * Restless Leg syndrome - Mirapex 0.75mg qhs. * Depression - Sertraline 50mg daily, stable chronic retirement use, GDR not recommended. Medications at Discharge Home Medications albuterol sulfate 90 mcg/actuation aerosol inhaler 2 puff inhalation Q4H PRN Sob &/Or Wheezing 10/14/18 metformin 500 mg tablet 500 mg PO DAILY Blood sugar 10/14/18 ropinirole 0.5 mg tablet 1.5 mg PO QHS Restless leg 10/14/18 Oxygen #1 ea 10/27/18 ipratropium 0.5 mg-albuterol 3 mg (2.5 mg base)/3 mL nebulization soln 1 dose inhalation 4X/DAY Breathing 12/22/18 oxybutynin chloride 5 mg tablet 5 mg PO DAILY Bladder 07/25/21 sertraline 50 mg tablet 50 mg PO DAILY Mood 07/25/21 acetaminophen 500 mg tablet 1,000 mg (2 x 500 mg) PO Q6H PRN PRN Pain Score 1-3 #0 tabs 08/07/21 gabapentin 100 mg capsule 100 mg PO TIDCM nerve pain 30 days #90 caps 08/07/21 arformoterol 15 mcg/2 mL solution for nebulization 15 mcg inhalation Q12H br eathing 12/11/22 hydrochlorothiazide 25 mg tablet 25 mg PO DAILY BP/fluid #0 tabs 12/15/22 metoprolol succinate 50 mg tablet,extended release 24 hr 50 mg PO DAILY BP/HR 30 days #0 tabs 12/15/22 Hospital Course Operations None Procedures None Summary of Care Provided Minutes Spent on Discharge: 35 Hospital Course: 77 year old female with below past medical history hospitalized for urinary tract infection, acute kidney injury, occult blood in stool, admitted to TCU with debility, here for rehabilitation, strengthening, prior to discharge home alone. Discharge home with daughter 01/02/2023, [facility] PT/OT, Front Wheeled Walker. Physical Exam Const alert General Appearance: cooperative HEENT normocephalic Eyes PERRL and EOMs intact bilaterally Neck supple, no JVD and no carotid bruits Resp normal respiratory effort, normal air movement and clear to auscultation bilaterally Cardio regular rate and regular rhythm GI normal to inspection, nondistended, normoactive bowel sounds, non-tender and non-distended Extremity normal capillary refill General Extremity: Negative for edema Skin no rashes or lesions noted General Skin Exam: no breakdown Psych affect normal Appearance: appropriate Weight / BMI Weight Weight: 91.943 kg Body Mass Index (BMI) 37.0 ABG / Lab / Microbiology Data 12/30/22 05:15 12/30/22 05:15 Laboratory: Laboratory Results - last 24 hr 12/30/22 05:15: WBC 5.1, RBC 3.48 L, Hgb 10.6 L, Hct 35.0 L, MCV 100.6 H, MCH 30.5, MCHC 30.3 L, RDW Std Deviation 49.3 H, RDW Coeff of Stephenie 13.4, Plt Count 256, MPV 8.9, Immature Gran % (Auto) 0.800, Neut % (Auto) 55.5, Lymph % (Auto) 24.4, Hancock % (Auto) 15.2 H, Eos % (Auto) 3.1, Baso % (Auto) 1.0, Absolute Neuts (auto) 2.9, Absolute Lymphs (auto) 1.25, Nucleated RBC % 0, Sodium 136, Potassium 3.5, Chloride 94 L, Carbon Dioxide 40.0 H, Anion Gap 2 L, BUN 24 H, Creatinine 0.91, Estim Creat Clear Calc 42.25, Est GFR (MDRD) Af Amer 78, Est GFR (MDRD) Non-Af 64, BUN/Creatinine Ratio 26.4 H, Glucose 101, Calcium 8.9 12/30/22 06:16: POC Glucose 101 D/C Instructions Discharge Diet: No restrictions Discharge Activity: Return to Normal Activity, May Shower and Use Walker Weight Bearing Status: Weight bearing as tolerated Call your doctor if you observe: Fever of 101 or Higher, Inability to urinate, Inability to have a bowel movement, Shortness of breath, Dizziness, Fainting spells, Swelling in the ankles, Chest pain and Uncontrolled pain Additional Instructions: Discharge home with daughter 01/02/2023, [facility] PT/OT, Front Wheeled Walker. Please Follow Up With: Kade Mae, When: 4 weeks. Meaningful Use Info Meaningful Use Diagnoses (Choose all that apply): None applicable Discharge Plan Admission Admit Date/Time: 12/15/22 15:35 Primary Reason for Your Visit: Debility. Attending Provider: Gustavo Justice Chi Primary Care Provider: Roderick Ryder Consulting Providers: Neftaly Lam; Concepcion Peacock; Kaci Patino; Melanie Ochoa CODE ENFORCEMENT SUPERVISOR Instructions Additional Instructions / Restrictions: Discharge home with daughter 01/02/2023, [facility] PT/OT, Front Wheeled Walker. Discharge Orders/Prescriptions Prescriptions: Continued metformin 500 mg tablet 500 mg PO DAILY albuterol sulfate 90 mcg/actuation HFA aerosol inhaler 2 puff INHALATION Q4H PRN (Reason: Sob &/Or Wheezing) ropinirole 0.5 mg tablet 1.5 mg PO QHS ipratropium-albuterol 0.5-3MG/3 solution for nebulization 1 dose inhalation 4X/DAY oxybutynin chloride 5 mg Tablet 5 mg PO DAILY sertraline 50 mg Tablet 50 mg PO DAILY acetaminophen 500 mg Tablet 1,000 mg PO Q6H PRN PRN (Reason: Pain Score 1-3) Qty: 0 0RF gabapentin 100 mg Capsule 100 mg PO TIDCM 30 Days Qty: 90 0RF arformoterol 15 mcg/2 mL solution for nebulization 15 mcg INHALATION Q12H hydrochlorothiazide 25 mg Tablet 25 mg PO DAILY Qty: 0 0RF metoprolol succinate 50 mg tablet extended release 24 hr 50 mg PO DAILY 30 Days Qty: 0 0RF Rx Instructions: Hold for heart less than 50 or systolic blood pressure less than 100 mmHg. No Action (DME) Oxygen 3 liters NC Qty: 1 Dose Instruction: As directed Patient Comments: says she uses 3-4L at home Rx Instructions: As directed Referrals / Follow Up: Roderick Ryder MD [Primary Care Provider] - 01/12/23 2:00 pm Disposition Disposition (needs filled in before D/C Order can be placed): Home Health Service
[2022-12-30] MEDS: ALPRAZolam 0.25 MG Tablet 0.125 MG PO (20:12)
--- NOTE | 2022-12-30 21:10 | PCA ---
pt did not wish to get washed up for bed tonight or change her clothes. Stated that they were too tired and did not do anything during the day to get dirty.
[2022-12-30] MEDS: Pramipexole Di-HCl 0.25 MG Tablet 0.75 MG PO (21:47)
[2022-12-30] MEDS: MELATONIN 10 MG TABLET PO (21:48)
[2022-12-31] MEDS: guaiFENesin 1,200 MG Tablet 1200 MG PO ×2 (05:54→17:06)
[2022-12-31] MEDS: Oxybutynin 5 MG Tablet PO (05:54)
[2022-12-31] MEDS: Sertraline 50 MG Tablet PO (05:54)
[2022-12-31 05:55] VITALS: BP 138/74; PULSE 67
[2022-12-31] MEDS: Metoprolol(XL)Succ 50 MG Tablet PO (05:55)
[2022-12-31] MEDS: hydroCHLOROthiazide 25 MG Tablet PO (05:55)
[2022-12-31] MEDS: Acetaminophen 500 MG Tablet 1000 MG PO ×3 (05:55→21:25)
[2022-12-31] MEDS: Arthritis Pain Compound 60 CLICK TUBE TOPICAL ×2 (05:57→17:07)
[2022-12-31 06:34] LABS: Bedside Glucose 105 mg/dL (74-106)
[2022-12-31] MEDS: Gabapentin 100 MG Capsule PO ×3 (07:57→17:06)
[2022-12-31] MEDS: metFORMIN HCl 500 MG Tablet PO (07:57)
[2022-12-31] MEDS: Nystatin Powder 15gm Bottle 1 APPLIC TOPICAL ×2 (07:59→21:25)
[2022-12-31 08:37] VITALS: PULSE 80; RESP 19
[2022-12-31] MEDS: ARFORMOTEROL TARTRATE 15 MCG/2 ML INHALATION ×2 (08:38→20:25)
[2022-12-31 14:10] VITALS: BP 135/78; PULSE 72; RESP 14; TEMP 36.9; O2SAT 96
[2022-12-31] MEDS: traMADol 50 MG Tablet PO (19:48)
[2022-12-31 19:52] VITALS: PULSE 71; RESP 16
[2022-12-31 20:25] VITALS: PULSE 68; RESP 18
[2022-12-31] MEDS: Ammonium Lactate 225 gm Bottle 1 APPLIC TOPICAL (21:24)
[2022-12-31] MEDS: Pramipexole Di-HCl 0.25 MG Tablet 0.75 MG PO (21:26)
[2022-12-31] MEDS: MELATONIN 10 MG TABLET PO (21:26)
[2023-01-01] MEDS: Arthritis Pain Compound 60 CLICK TUBE TOPICAL ×2 (05:37→17:03)
[2023-01-01 05:38] VITALS: BP 137/78; PULSE 78
[2023-01-01] MEDS: hydroCHLOROthiazide 25 MG Tablet PO (05:38)
[2023-01-01] MEDS: Oxybutynin 5 MG Tablet PO (05:38)
[2023-01-01] MEDS: guaiFENesin 1,200 MG Tablet 1200 MG PO ×2 (05:38→17:02)
[2023-01-01] MEDS: Metoprolol(XL)Succ 50 MG Tablet PO (05:38)
[2023-01-01] MEDS: Acetaminophen 500 MG Tablet 1000 MG PO ×3 (05:39→20:53)
[2023-01-01] MEDS: Sertraline 50 MG Tablet PO (05:39)
[2023-01-01 06:36] LABS: Bedside Glucose 105 mg/dL (74-106)
[2023-01-01] MEDS: ARFORMOTEROL TARTRATE 15 MCG/2 ML INHALATION ×2 (07:40→22:00)
[2023-01-01 07:42] VITALS: PULSE 70; RESP 18; O2SAT 96
[2023-01-01] MEDS: metFORMIN HCl 500 MG Tablet PO (08:03)
[2023-01-01] MEDS: Gabapentin 100 MG Capsule PO ×3 (08:04→17:02)
[2023-01-01 10:00] VITALS: PULSE 68; RESP 16
[2023-01-01] MEDS: Ammonium Lactate 225 gm Bottle 1 APPLIC TOPICAL ×2 (10:34→20:52)
[2023-01-01] MEDS: Nystatin Powder 15gm Bottle 1 APPLIC TOPICAL ×2 (10:35→20:52)
--- NOTE | 2023-01-01 13:30 | MDS.RN ---
Pain interview for MDS completed.
[2023-01-01 15:39] VITALS: BP 118/81; PULSE 77; RESP 16; TEMP 35.8; O2SAT 97
[2023-01-01] MEDS: MELATONIN 10 MG TABLET PO (20:51)
[2023-01-01] MEDS: Pramipexole Di-HCl 0.25 MG Tablet 0.75 MG PO (20:51)
[2023-01-01 22:00] VITALS: PULSE 70; RESP 20
[2023-01-02] MEDS: Acetaminophen 500 MG Tablet 1000 MG PO (05:56)
[2023-01-02 05:57] VITALS: BP 118/81; PULSE 83
[2023-01-02] MEDS: Arthritis Pain Compound 60 CLICK TUBE TOPICAL (05:57)
[2023-01-02] MEDS: Metoprolol(XL)Succ 50 MG Tablet PO (05:57)
[2023-01-02] MEDS: Sertraline 50 MG Tablet PO (05:58)
[2023-01-02] MEDS: Oxybutynin 5 MG Tablet PO (05:58)
[2023-01-02] MEDS: guaiFENesin 1,200 MG Tablet 1200 MG PO (05:58)
[2023-01-02 06:00] VITALS: TEMP 36.2
[2023-01-02 06:37] LABS: Bedside Glucose 115 mg/dL (74-106)
[2023-01-02 06:45] VITALS: PULSE 60; RESP 18
[2023-01-02] MEDS: ARFORMOTEROL TARTRATE 15 MCG/2 ML INHALATION (06:45)
[2023-01-02] MEDS: Doxycycline 100 MG CAPSULE PO (09:11)
[2023-01-02] MEDS: Cephalexin 500 MG Capsule PO (09:11)
[2023-01-02] MEDS: metFORMIN HCl 500 MG Tablet PO (09:11)
[2023-01-02] MEDS: Gabapentin 100 MG Capsule PO (09:12)
[2023-01-02] MEDS: oxyCODONE 5 MG Tablet PO (09:44)
[2023-01-02 10:00] VITALS: O2SAT 94
--- NOTE | 2023-01-02 10:17 | CASEMGMT ---
Social Work Brief interview for mental status (BIMS) and resident mood assessment (PHQ-9) completed on this day. BIMS score . PHQ-9 score 10/02. Wilman SOLIS, JOSE RAMONS
[2023-01-02 10:33] VITALS: BP 127/73; PULSE 72; RESP 18; TEMP 36.7; O2SAT 96
== END 2023-01-02 11:32 | disposition home health service (06) | DRG 690 ==
PROVIDERS: Admitting Provider Family Medicine Geriatric Medicine; PCP Family Medicine; Referring Provider Family Medicine Geriatric Medicine; Visit Provider Family Medicine Geriatric Medicine
DX: N39.0 Urinary tract infection, site not specified (principal); L03.115 Cellulitis of right lower limb; N17.9 Acute kidney failure, unspecified; K92.1 Melena; L03.116 Cellulitis of left lower limb; E11.42 Type 2 diabetes mellitus with diabetic polyneuropathy; J44.9 Chronic obstructive pulmonary disease, unspecified; G25.81 Restless legs syndrome; M79.7 Fibromyalgia; I10 Essential (primary) hypertension; M15.9 Polyosteoarthritis, unspecified; G47.33 Obstructive sleep apnea (adult) (pediatric); F32.9 Major depressive disorder, single episode, unspecified; Z87.891 Personal history of nicotine dependence; N32.81 Overactive bladder; Z79.84 Long term (current) use of oral hypoglycemic drugs; Z79.899 Other long term (current) drug therapy
CPT/HCPCS: 36415; 73030; 74018; 80048; 82962; 85025; 93005; 94640; 94762; 97110; 97162; 97166; 97530; 97535; 97802

== ENCOUNTER 2023-01-09 08:50 | Outpatient (RCR) | payer MEDICARE, SELFPAY ==
[2022-12-06 01:18] VITALS: BP 100/56; PULSE 86; RESP 18; TEMP 36.4; BMI 34.7
[2023-01-09 09:34] VITALS: BP 132/79; PULSE 79; RESP 18; TEMP 35.9; BMI 34.7
--- NOTE | 2023-01-09 13:33 | PCM.WC.PN ---
History of Present Illness Date of Service: 01/09/23 Chief Complaint: Venous leg ulcer left lower extremity History of Wound: This is a 76-year-old white female who presents to the wound healing center today with complaint of nonhealing ulceration of her right and left lower extremities. She has a past medical history significant for chronic hypoxia on supplemental O2, COPD, type 2 diabetes mellitus, CHF, and osteoarthritis of the bilateral knees and GERD. The patient states that her wounds initially occurred after scratching the back of her leg on something almost a month ago. She saw her PCP last week and was started on Cephalexin QID x 10 days. She was 2 days left of treatment. She has not had any improvement in her pain or ulcers since starting the antibiotic. She has been applying triple antibiotic ointment covering with gauze for the last few days but had been using hydrogel and nonadherent dressings prior to that. She states that she has not been utilizing any compression due to pain but has been elevating her legs more frequently and using a wedge pillow. She denies any systemic or localized signs of infection at this time. Denies any prior cultures being taken. 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 Subjective Subjective Kandi is tolerating treatment with hydrogel and adaptic well and is healed today. Denies fever, chills, increased drainage, increased pain or increased erythema. Objective Data Objective Data Vital Signs: Vital Signs Temp Pulse Resp BP O2 Flow Rate 96.6 F L 79 18 132/79 H 2 01/09/23 09:34 01/09/23 09:34 01/09/23 09:34 01/09/23 09:34 12/06/22 01:18 Oxygen Flow Rate (L/min) 2 Weight: 91.777 kg Body Mass Index (BMI) 34.7 Physical Exam Const alert, oriented x3 and no apparent distress General Appearance: cooperative and comfortable HEENT normocephalic and head/scalp atraumatic Resp normal respiratory effort Effort and Inspection: able to speak in complete sentences Cardio regular rate and regular rhythm Skin Wounds: wounds noted Wound Narrative: as in clinical panel Psych mental status grossly normal, thought process normal, cooperative and affect normal Debridement Note Debridement Note Wound debrided: Left posterior LE No debridement was completed: No debridement was completed today (ulcer healed) Post-Debridement Measurements and Additional Note: Post-Debridement Measurements/Treatment - Nurse 1 - General Ulcer Assessment Start: 01/09/23 09:34 Freq: Status: Active Protocol: CHING Activity Type Activity Date Activity User E-sign Co-sign Detail Recorded Client Recorded Date Recorded By Document 01/09/23 09:34 CAROLINE [id number] 01/09/23 09:38 CAROLINE 01/09/23 09:34 WC - Today's Visit Information Type of service Follow-up Visit (Physician/CUSTOMS PORT DIRECTOR ) Arrival Mode Ambulatory, Walker Transfer Assistance None Patient Identification Verified (Name & Yes ) Patient Requires Transmission-Based No Precautions Height and Weight Body Mass Index (BMI) 34.7 BMI Classification Obese Vital Signs Temperature (97.8 F-99.1 F) 96.6 F L Temperature Source Temporal Pulse Rate (60-100) 79 Pulse Location Monitor Respiratory Rate (12-18) 18 Respiratory rate source Observation Blood Pressure (90/60-120/80) 132/79 H Blood Pressure Mean (mm Hg) 96 Source Monitor Position Semi-Fowlers Blood Pressure Location Left Forearm History Since Last Visit- (Skip if this is Patient's initial visit) Have you changed medications since your No last visit? Any new allergies or adverse reactions No Had a fall/change in ADL's that may No increase risk of falls Signs or symptoms of abuse and/or No neglect since last visit Have you been in the hospital since your No last visit? Has dressing in place as prescribed Yes Has compression in place as prescribed No Has offloadiing in place as prescribed No Experienced any changes in pain level or No management Pain Scale: 0-10 Numeric Is Patient Pain Free? Yes - Nurse 1 - General Ulcer Measurement Start: 01/09/23 09:34 Freq: Status: Active Protocol: Activity Type Activity Date Activity User E-sign Co-sign Detail Recorded Client Recorded Date Recorded By Document 01/09/23 09:34 CAROLINE [id number] 01/09/23 09:38 CAROLINE 01/09/23 09:34 Wound Center Nurse 1 #2 R POST LE -Combined with other wound No -Current Size (cm) - Length 0.1 -Current Size (cm) - Width 0.1 -Current Size (cm) - Depth 0.1 -Total Square Cm 0.01 -Tunneling No -Undermining/Tunneling No -Circular Undermining No -Exudate Amt Medium -Exudate Type Serosanguineous -Wound Margin Distinct, Outline Attached -Granulation Amt Medium (34-66%) -Granulation Quality [place] -Slough/Fibrin Yes -Necrosis Amt Medium (34-66%) -Necrotic Tissue Type Adherent Slough -Structure Exposed N/A -Texture (Leticia-wound Skin Appearance) Assessed -Moisture (Leticia-wound Skin Appearance) Assessed -Color (Leticia-wound Skin Appearance) Assessed -Temperature (Leticia-wound Skin No Abnormality Appearance) (Pt Warm) -Tenderness on Palpation (Leticia-wound No Skin Appearance) -Ulcer Cleansing Wound Cleanser -Foul Odor after Cleansing No -Anesthetic Used 5% Lidocaine Gel Lower Limb Edema Present Yes Right Calf (cm) 39.5 Right Ankle (cm) 25 - Nurse 2 - General Ulcer CM Notes Start: 01/09/23 09:34 Freq: Status: Active Protocol: Activity Type Activity Date Activity User E-sign Co-sign Detail Recorded Client Recorded Date Recorded By Document 01/09/23 09:43 MW [id number] 01/09/23 09:52 MW 01/09/23 09:43 Wound Center Nurse 2 #2 R POST LE -Time 09:46 -Correct Patient Yes -Correct Side, Site, Position Yes -Correct Procedure Yes -Procedure Performed No -Post Debridement (cm) - Length 0 -Post Debridement (cm) - Width 0 -Total Square (Post) (cm) 0 -Tunneling No -Undermining/Tunneling No -Circular Undermining No -Wound/Ulcer Outcome Healed- Epithelialized Pain Scale: 0-10 Numeric Is Patient Pain Free? Yes - Nurse 3 - General Ulcer D/C NN Start: 01/09/23 09:34 Freq: Status: Active Protocol: Activity Type Activity Date Activity User E-sign Co-sign Detail Recorded Client Recorded Date Recorded By Document 01/09/23 10:05 RB [id number] 01/09/23 10:07 RB 01/09/23 10:05 Wound Care Center Nurse 3 #2 R POST LE -Primary Dressing Applied Mepilex Border -Other Dressing hydrogel -Mepilex Border 1 Right -Stockings Yes Left -Stockings Yes Treatment Response Procedure Tolerated Well Pain Scale: 0-10 Numeric Is Patient Pain Free? Yes Teaching: Wound Center Dressing Your Wound -Person Taught Patient -Teaching Method Discussion, Demonstration -Response to teaching Verbalize understanding WC - Visit Discharge Discharge Condition Stable Ambulatory Status Ambulatory, Walker Transportation Private Auto Medication Reconcilliation completed & No provided to patient/care provider Clinical Summary of Care Provided Yes Assessment/Plan Assessment/Plan (1) Venous stasis ulcer of left lower leg with edema of left lower leg: CODE(S): I83.029 - Varicose veins of left lower extremity with ulcer of unspecified site; I83.892 - Varicose veins of left lower extremity with other complications; L97.929 - Non-pressure chronic ulcer of unspecified part of left lower leg with unspecified severity; R60.9 - Edema, unspecified (2) Diabetes mellitus: CODE(S): E11.9 - Type 2 diabetes mellitus without complications QUALIFIERS: Diabetes mellitus type: type 2 Diabetes mellitus shelter insulin use: without shelter use Diabetes mellitus complication status: with neurologic complications Diabetes mellitus complication detail: with polyneuropathy Qualified Code(s): E11.42 - Type 2 diabetes mellitus with diabetic polyneuropathy (3) Chronic obstructive pulmonary disease: CODE(S): J44.9 - Chronic obstructive pulmonary disease, unspecified QUALIFIERS: COPD type: unspecified COPD Qualified Code(s): J44.9 - Chronic obstructive pulmonary disease, unspecified (4) Hypertension: CODE(S): I10 - Essential (primary) hypertension QUALIFIERS: Hypertension type: primary hypertension Qualified Code(s): I10 - Essential (primary) hypertension (5) 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: CODE(S): I83.019 - Varicose veins of right lower extremity with ulcer of unspecified site; L97.919 - Non-pressure chronic ulcer of unspecified part of right lower leg with unspecified severity (6) Nonhealing ulcer of left lower extremity with fat layer exposed: CODE(S): L97.922 - Non-pressure chronic ulcer of unspecified part of left lower leg with fat layer exposed (7) Nonhealing ulcer of right lower extremity with fat layer exposed: CODE(S): L97.912 - Non-pressure chronic ulcer of unspecified part of right lower leg with fat layer exposed (8) Supplemental oxygen dependent: CODE(S): Z99.81 - Dependence on supplemental oxygen PLAN: Plan Debridement performed today in clinic as annotated above. At home wound-care instructions: Will have her continue to apply hydrogel and cover with silicone foam bordered dressing every other day x 1 week and then apply lotion daily and protect. Off-loading: The patient was instructed to avoid pressure and friction on the affected areas. Reposition every 2 hours at minimum. Avoid prolonged standing and/or dangling of legs. When seated, feet should be elevated at chest level. Frequent ambulation is encouraged. Diet: Patient encouraged to increase protein intake while taking caution to avoid high carbohydrate and/or sugar intake. Labs/cultures/imaging: Vascular testing ordered to evaluate for arterial and venous disease showed incompetence of accessory saphenous veins b/l and normal arterial studies except decreased at level of great toe. Follow-up: Discharged today and will be happy to se her again in the future. Note: [employer] speech recognition recovery specialist software was used to create portions of this document. Sound-alike and misspelled words, as well as other recovery specialist errors may be contained in the documentation.
== END 2023-01-09 14:38 | disposition home or self-care (01) ==
LOC: WC 08:50
PROVIDERS: PCP Family Medicine; Referring Provider Family Medicine; Visit Provider Family Medicine
DX: L97.812 Non-pressure chronic ulcer of other part of right lower leg with fat layer exposed (principal); L97.822 Non-pressure chronic ulcer of other part of left lower leg with fat layer exposed; I83.018 Varicose veins of right lower extremity with ulcer other part of lower leg; I83.028 Varicose veins of left lower extremity with ulcer other part of lower leg; J44.9 Chronic obstructive pulmonary disease, unspecified; I50.9 Heart failure, unspecified; E11.42 Type 2 diabetes mellitus with diabetic polyneuropathy; K21.9 Gastro-esophageal reflux disease without esophagitis; R60.9 Edema, unspecified; Z99.81 Dependence on supplemental oxygen; R09.02 Hypoxemia; M17.0 Bilateral primary osteoarthritis of knee; E66.9 Obesity, unspecified; Z68.34 Body mass index [BMI] 34.0-34.9, adult; Z79.84 Long term (current) use of oral hypoglycemic drugs; Z79.899 Other long term (current) drug therapy
CPT/HCPCS: 99213; G0463

== ENCOUNTER → 2023-01-21 | Outpatient (CLI) | payer MEDICARE, SELFPAY ==
--- NOTE | 2023-01-21 15:10 | RAD_ITS ---
EXAM: XR LUMBOSACRAL SPINE, 2 OR 3 VIEWS CLINICAL INDICATION: RADICULOPATHY TECHNIQUE: Frontal and lateral views of the lumbar spine and sacrum. COMPARISON: No relevant prior studies available. FINDINGS: VERTEBRAE: There is mild curvature of the lumbar spine. Preserved vertebral body height. No fracture. No spondylolisthesis. No significant facet arthropathy. DISC SPACES: There is disc space narrowing at all levels. GASTROINTESTINAL TRACT: Unremarkable as visualized. Included bowel gas pattern is non-obstructive. RAD/Lumbar Spine 2 or 3 Views IMPRESSION: Degenerative changes with disc space narrowing. There are no acute osseous abnormalities. Electronically Signed: Florentino Sultana MD at 23:04 EDT ,
== END | disposition home or self-care (01) ==
LOC: RAD 14:53
PROVIDERS: PCP Family Medicine; Referring Provider Anesthesiology Pain Medicine; Visit Provider Anesthesiology Pain Medicine
DX: M54.16 Radiculopathy, lumbar region (principal)
CPT/HCPCS: 72100

== ENCOUNTER → 2023-02-18 | Outpatient (CLI) | payer MEDICARE, SELFPAY ==
[2023-02-18 17:29] LABS: Amphetamine Urine VISTA NEGATIVE (<1000 ng/mL); Barbiturate Urine VISTA NEGATIVE (< 200 ng/mL); Benzodiazepine Urine VISTA NEGATIVE (< 200 ng/mL); Cocaine Urine VISTA NEGATIVE (< 300 ng/mL); Ecstacy Urine VISTA NEGATIVE (< 500 ng/mL); Methadone Urine VISTA NEGATIVE (< 300 ng/mL); PCP Urine VISTA NEGATIVE (< 25 ng/mL); THC Urine VISTA NEGATIVE (< 50 ng/mL); Vista UDS pH Range 7
== END | disposition home or self-care (01) ==
LOC: LAB 16:14
PROVIDERS: PCP Family Medicine; Referring Provider Anesthesiology Pain Medicine; Visit Provider Anesthesiology Pain Medicine
DX: F11.20 Opioid dependence, uncomplicated (principal)
CPT/HCPCS: 80307

== ENCOUNTER 2023-08-28 14:12 | Emergency (ER) | payer MEDICARE, SELFPAY ==
[2023-08-28 14:15] VITALS: BP 147/75; PULSE 107; RESP 24; TEMP 37.1; O2SAT 93
--- NOTE | 2023-08-28 14:27 | ED.RN ---
DAUGHTER TYSHAWN SEPULVEDA [phone]
--- NOTE | 2023-08-28 15:12 | EDS_ITS ---
HPI HPI - GI History of Present Illness Chief Complaint: Abd Pain Narrative Narrative: 77-year-old female presenting with abdominal pain. Patient states she has had this for 2 weeks. Patient started on tramadol about a month ago. She has chronic pain and she states she is never been on this before. She states that she was not told it would cause any constipation but she does feel constipated. She has not tried anything to have a bowel movement. She states has not seen anybody for the abdominal pain. She states she did call the nurses line who initially told her to drink a lot of water and then when she called back they told her to go to the emergency room and to keep yourself NPO. Patient states he is never had any abdominal surgeries. Denies fevers or chills. Denies urinary or vaginal complaints. [facility] Medical History (Updated 08/28/23 @ 17:[address] Juni Ho, DO) Aortic dissection, abdominal COPD (chronic obstructive pulmonary disease) Debility Degenerative disc disease, lumbar Depression Edema of both lower extremities Essential hypertension Fibromyalgia Generalized muscle weakness GERD (gastroesophageal reflux disease) Morbid obesity with BMI of 40.0-44.9, adult Muscle spasm MICHEL (obstructive sleep apnea) Osteoarthritis Right knee pain RLS (restless legs syndrome) Type 2 diabetes mellitus without complication Venous stasis ulcer of left lower leg with edema of left lower leg Weakness Home Medications albuterol sulfate 90 mcg/actuation aerosol inhaler 2 puff inhalation Q4H PRN Sob &/Or Wheezing 10/14/18 [History Last Taken Unknown] metformin 500 mg tablet 500 mg PO DAILY Blood sugar 10/14/18 [History Last Taken 12/10/22] ropinirole 0.5 mg tablet 1.5 mg PO QHS Restless leg 10/14/18 [History Last Taken 12/09/22] Oxygen #1 ea 10/27/18 [History Last Taken Unknown] ipratropium 0.5 mg-albuterol 3 mg (2.5 mg base)/3 mL nebulization soln 1 dose inhalation 4X/DAY Breathing 12/22/18 [History Last Taken Unknown] oxybutynin chloride 5 mg tablet 5 mg PO DAILY Bladder 07/25/21 [History Last Taken 12/10/22] sertraline 50 mg tablet 50 mg PO DAILY Mood 07/25/21 [History Last Taken 07/05/2 3] acetaminophen 500 mg tablet 1,000 mg (2 x 500 mg) PO Q6H PRN PRN Pain Score 1-3 #0 tabs 08/07/21 [Rx Last Taken Unknown] gabapentin 100 mg capsule 100 mg PO TIDCM nerve pain 30 days #90 caps 08/07/21 [Rx Last Taken 12/10/22] arformoterol 15 mcg/2 mL solution for nebulization 15 mcg inhalation Q12H breathing 12/11/22 [History Last Taken Unknown] hydrochlorothiazide 25 mg tablet 25 mg PO DAILY BP/fluid #0 tabs 12/15/22 [Rx Last Taken Unknown] metoprolol succinate 50 mg tablet,extended release 24 hr 50 mg PO DAILY BP/HR 30 days #0 tabs 12/15/22 [Rx Last Taken Unknown] cephalexin 500 mg capsule 500 mg PO Q6 7 days #28 caps 01/02/23 [Rx Last Taken Unknown] doxycycline monohydrate 100 mg capsule 100 mg PO BID 7 days #14 caps 01/02/23 [Rx Last Taken Unknown] levofloxacin 500 mg tablet 500 mg PO DAILY #7 tabs 08/28/23 [Rx Last Taken Unknown] Allergy/AdvReac Type Severity Reaction Status Date / Time lisinopril AdvReac Intermediate cough Verified 08/28/23 14:15 pregabalin [From Lyrica] AdvReac Swelling Verified 08/28/23 14:15 Family History Mother Cancer lymphoma Father COPD (chronic obstructive pulmonary disease) Cancer bone Son Heart disease ischemic heart disease Surgical History History of appendectomy History of hysterectomy History of tonsillectomy Social History household members: none Smoking Status: Former smoker how long ago did patient quit smokin.5 years ago alcohol intake: current alcohol intake frequency: holidays/special occasions only substance use type: does not use caffeine: Yes Type: coffee Number of servings: 1 ROS ROS ED Constitutional Constitutional ED: Denies chills, fever(s) or sweats Eyes Eyes: Denies blurry vision or change in vision ENT ENT ED: Denies ear pain or sore throat Cardiovascular Cardiovascular: Denies chest pain, palpitations or racing heartbeat Respiratory/Chest Respiratory/Chest: Denies cough, dyspnea or sputum Gastrointestinal Gastrointestinal: Reports abdominal pain and constipation; Denies diarrhea, nausea or vomiting Genitourinary Genitourinary ED: Denies dysuria, hematuria or urinary frequency Musculoskeletal Musculoskeletal: Denies arthralgias, myalgias or neck pain Integumentary Denies abscess, Abrasions or rash Neurologic Neurologic: Denies headache(s), paresthesias or weakness Psychiatric Psychiatric: Denies anxiety, depression, suicidal ideation or suicidal thoughts Endocrine Endocrinology: Denies polydipsia or polyuria EXAM Physical Exam Const Vital Signs: 08/28/23 14:15 08/28/23 16:20 Temperature 98.7 F Temperature Source Temporal Pulse Rate 107 H 85 Respiratory Rate 24 H 27 H Blood Pressure 147/75 H 110/66 Blood Pressure Mean 99 80 Pulse Ox 93 92 Oxygen Delivery Method Nasal Cannula Nasal Cannula Oxygen Flow Rate (L/min) 2 6 Positive well nourished General Appearance ED: Negative for pallor HEENT Reports moist mucous membranes normocephalic and atraumatic Eyes PERRL and EOMs intact bilaterally General Eye ED: Negative for pale conjunctiva Cardio regular rate and regular rhythm GI Palpation: tender LLQ Neuro CN's II-XII intact bilaterally Sensorium / Orientation: alert Psych mental status grossly normal Skin General Skin Exam: Negative for jaundice or pallor MDM MDM MDM Narrative Medical decision making narrative: Patient presenting with abdominal pain. States she has had this for about 2 weeks. Patient denies fever, chills, nausea, vomiting. She does admit to constipation and no diarrhea. The patient abdominal exam is benign. Patient is on 2 L on arrival and she states she wears 2 to 3 L and sometimes 4 L at home as needed. She is on this at baseline denies any chest pain or shortness of breath but states she might have a cough. CBC was obtained to assess white blood cell count, hemoglobin, platelets. CMP to assess liver function renal function, e lectrolytes, glucose. Lipase to assess for pancreatitis. Patient medicated with morphine and Zofran. CT of the abdomen pelvis negative for acute abdominal findings but does show what looks like bibasilar consolidation. Patient states she feels she is comfortable going home with oral antibiotics. She started on Levaquin here. On her chart it states that she is on 6 L nasal cannula 92% however she is currently 96% sleeping in the bed on 3 L. CBC shows mild leukocytosis 12.2. Hemoglobin stable 10.7. Platelets are normal at 263. Renal function and electrolytes at baseline with exception of potassium 3.1. Since patient feels comfortable going home we will discharge her home prescription and follow-up with her PCP. Return precautions discussed. Impression: 1. Abdominal pain 2. Pneumonia 3. Constipation Lab Data Labs: Laboratory Results - last 24 hr 08/28/23 15:10 WBC 12.7 H RBC 3.65 L Hgb 10.7 L Hct 33.9 L MCV 92.9 MCH 29.3 MCHC 31.6 L RDW Std Deviation 45.3 H RDW Coeff of Stephenie 13.3 Plt Count 263 MPV 9.3 Immature Gran % (Auto) 0.500 Neut % (Auto) 84.7 H Lymph % (Auto) 1.8 L [place] % (Auto) 12.3 H Eos % (Auto) 0.1 Baso % (Auto) 0.6 Absolute Neuts (auto) 10.7 H Absolute Lymphs (auto) 0.23 L Nucleated RBC % 0 Differential Comment SCANNED Diff Path Review May foll Sodium 131 L Potassium 3.1 L Chloride 88 L Carbon Dioxide 37.0 H Anion Gap 6 BUN 22 H Creatinine 0.94 Est GFR (MDRD) Af Amer 74 Est GFR (MDRD) Non-Af 61 BUN/Creatinine Ratio 23.3 H Glucose 173 H Calcium 9.5 Total Bilirubin 0.70 AST 13 L ALT 13 Alkaline Phosphatase 88 Total Protein 7.2 Albumin 2.8 L Globulin 4.4 H Albumin/Globulin Ratio 0.6 L Lipase 14 Radiography Diagnostic Testing: Clinical Impression(s) from Imaging Studies Abdomen/Pelvis CT 08/28/23 16:10 IMPRESSION: No acute abnormalities in the abdomen or pelvis. Bibasilar lung consolidation. Unchanged 4.2 cm abdominal aortic aneurysm with extension into the left common iliac artery. Electronically Signed: Mono Farmer MD at 17:24 EDT , Discharge Plan Triage Chief Complaint: Abd Pain ED Provider: Juni Ho Dx/Rx/DC Orders Clinical Impression: Pneumonia Instructions: ED Abdominal Pain Unkn Cause Fem, ED Pneumonia (Adult) Prescriptions: New levofloxacin 500 mg tablet 500 mg PO DAILY Qty: 7 0RF No Action (DME) Oxygen 3 liters NC Qty: 1 Dose Instruction: As directed Patient Comments: says she uses 3-4L at home Rx Instructions: As directed metformin 500 mg tablet 500 mg PO DAILY albuterol sulfate 90 mcg/actuation HFA aerosol inhaler 2 puff INHALATION Q4H PRN (Reason: Sob &/Or Wheezing) ropinirole 0.5 mg tablet 1.5 mg PO QHS ipratropium-albuterol 0.5-3MG/3 solution for nebulization 1 dose inhalation 4X/DAY oxybutynin chloride 5 mg Tablet 5 mg PO DAILY sertraline 50 mg Tablet 50 mg PO DAILY acetaminophen 500 mg Tablet 1,000 mg PO Q6H PRN PRN (Reason: Pain Score 1-3) Qty: 0 0RF gabapentin 100 mg Capsule 100 mg PO TIDCM 30 Days Qty: 90 0RF doxycycline monohydrate 100 mg Capsule 100 mg PO BID 7 Days Qty: 14 0RF cephalexin 500 mg Capsule 500 mg PO Q6 7 Days Qty: 28 0RF arformoterol 15 mcg/2 mL solution for nebulization 15 mcg INHALATION Q12H hydrochlorothiazide 25 mg Tablet 25 mg PO DAILY Qty: 0 0RF metoprolol succinate 50 mg tablet extended release 24 hr 50 mg PO DAILY 30 Days Qty: 0 0RF Rx Instructions: Hold for heart less than 50 or systolic blood pressure less than 100 mmHg. Primary Care Provider: Roderick Ryder Referrals: Roderick Ryder MD [Primary Care Provider] - Disposition Disposition: Home, Self Care
[2023-08-28 15:17] LABS: Absolute Lymphocyte Count 0.23 X10^3/uL (0.83-4.51); Absolute Neutrophil Count 10.7 X10^3/uL (2.0-7.7); Basophil# 0.08 X10^3/uL; Basophil% 0.6 % (0-1); Eosinophil# 0.01 X10^3/uL; Eosinophils% 0.1 % (0-5); Hematocrit 33.9 % (37-47); Hemoglobin 10.7 g/dL (12.0-15.0); Lymphocyte # 0.23 X10^3/ul (0.83-4.51); Lymphocyte % 1.8 % (19-41); Mean Corp Hgb Conc 31.6 g/dL (32-36); Mean Corpuscular Hgb 29.3 pg (27.0-32.0); Mean Corpuscular Volume 92.9 fL (81-99); Mean Platelet Vol. 9.3 fl (6.2-12.0); Monocyte# 1.56 X10^3/uL; Monocyte% 12.3 % (0-10); NRBC Flagged by Analyzer 0 % (0-5); Neutrophil # 10.71 X10^3/uL (2.7-7.7); Neutrophil % 84.7 % (47-70); POSITIVE DIFFERENTIAL YES; Platelet Count 263 K/mm3 (150-450); RBC Distribution Width CV 13.3 % (11.6-14.6); RBC Distribution Width SD 45.3 fl (35.1-43.9); Red Blood Count 3.65 M/mm3 (4.2-5.4); White Blood Count 12.7 K/mm3 (4.4-11.0)
[2023-08-28 15:20] LABS: Differential Indicated SCAN CRITERIA MET
[2023-08-28 15:42] LABS: ALB/GLOB Ratio 0.6 RATIO (0.9-2.4); AST(SGOT) 13 U/L (15-37); Alanine Aminotransfer ALT/SGPT 13 U/L (13-56); Albumin, Serum 2.8 g/dL (3.2-5.0); Alkaline Phosphatase 88 U/L (45-117); Anion Gap 6 (5-15); BUN 22 mg/dL (7-18); BUN/Creat Ratio 23.3 RATIO (10-20); Calcium,Total 9.5 mg/dL (8.5-10.1); Chloride 88 mmol/L (98-107); Creatinine, Serum 0.94 mg/dL (0.55-1.02); EST Glomerular Filtration Rate 61 mL/min (>60); Est Glom Filt Rate - Afr Amer 74 mL/min (>60); Globulin 4.4 g/dL (2.2-4.2); Glucose 173 mg/dL (74-106); Lipase 14 U/L (13-75); Potassium 3.1 mmol/L (3.5-5.1); Protein, Total 7.2 g/dL (6.4-8.2); Sodium Level 131 mmol/L (136-145)
[2023-08-28] MEDS: Morphine 4 MG/ML Syringe IV (15:48)
[2023-08-28] MEDS: Ondansetron 4 MG/2 ML Vial IV (15:48)
[2023-08-28] MEDS: 0.9% Normal Saline (1000mL) 1,000 ML 999 ML IV (15:48)
[2023-08-28 15:52] LABS: Differential Comment SCANNED
--- NOTE | 2023-08-28 16:10 | CT_ITS ---
INDICATION: abdominal pain EXAMINATION: CT Abdomen And Pelvis W/O Contrast Injection TECHNIQUE: Helically acquired images were obtained of the abdomen and pelvis without the use of IV contrast. A radiation dose optimization technique was used for this scan. Oral contrast: None. COMPARISON: None FINDINGS: Evaluation of the solid organs and vascular structures is limited without intravenous contrast. Visualized lung bases: bibasilar consolidations. Liver: Unremarkable Gallbladder: Unremarkable Spleen: Unremarkable Pancreas: Unremarkable Adrenal Glands: Unremarkable Kidneys: Simple bilateral renal cysts. Vasculature: Severe aortoiliac atherosclerotic disease. Unchanged 4.2 cm abdominal aortic aneurysm. GI Tract: Unremarkable Lymphadenopathy: None Peritoneum: No ascites. Bladder: Unremarkable Reproductive organs: Unremarkable Bones/Soft tissues: There are diffuse degenerative changes of the spine. CT/Abdomen/Pelvis without Cont IMPRESSION: No acute abnormalities in the abdomen or pelvis. Bibasilar lung consolidation. Unchanged 4.2 cm abdominal aortic aneurysm with extension into the left common iliac artery. Electronically Signed: Mono Farmer MD at 17:24 EDT ,
[2023-08-28 16:20] VITALS: BP 110/66; PULSE 85; RESP 27; O2SAT 92
[2023-08-28 17:46] LABS: Bacteria 0 SEEN /hpf (None Seen); Mucous, Urine 0 SEEN /hpf (<or=2+); White Blood Cells 0 SEEN /hpf (0-5)
[2023-08-28 17:48] VITALS: BP 115/79; PULSE 65; PULSE 83; RESP 18; RESP 25; TEMP 36.4; O2SAT 94; O2SAT 95
[2023-08-28 17:49] LABS: Color, Urine Yellow (Yellow); Glucose, Dipstick Normal (Normal); Ketone-Dipstick 5 mg/dl (Negative); Leukocyte Esterase-Dipstick 25 /ul (Negative); Nitrite-Dipstick Negative (Negative); Occult Blood-Urine 50 /ul (Negative); Protein-Dipstick 100 mg/dl (Negative); Urine Bilirubin Dipstick Negative (Negative); Urine Clarity Clear (Clear); Urine Urobilinogen Normal (Normal)
[2023-08-28 18:07] LABS: Amorphous Sediment 1+; Red Blood Cells-Urine 0-5 SEEN /hpf (0-5); Squamous Epithelial Cells - UA 0-5 SEEN /hpf (5-10)
[2023-09-01 09:30] LABS: Pathologist Review Reviewed
== END 2023-08-28 18:01 | disposition home or self-care (01) ==
PROVIDERS: Emergency Provider Student in an Organized Health Care Education/Training Program; PCP Family Medicine; Visit Provider Student in an Organized Health Care Education/Training Program
DX: R10.9 Unspecified abdominal pain (principal); J44.9 Chronic obstructive pulmonary disease, unspecified; E11.9 Type 2 diabetes mellitus without complications; J18.9 Pneumonia, unspecified organism; K59.00 Constipation, unspecified; Z87.891 Personal history of nicotine dependence; I10 Essential (primary) hypertension; Z79.84 Long term (current) use of oral hypoglycemic drugs; G25.81 Restless legs syndrome; F32.A Depression, unspecified; Z90.49 Acquired absence of other specified parts of digestive tract; Z90.710 Acquired absence of both cervix and uterus
CPT/HCPCS: 74176; 80053; 81001; 83690; 85025; 99283; J7030; J2405

== ENCOUNTER → 2024-08-02 | Outpatient (CLI) | payer MEDICARE, SELFPAY ==
[2024-08-02 20:26] LABS: Amphetamine Urine NEGATIVE (<1000 ng/mL); Barbiturate Urine NEGATIVE (< 200 ng/mL); Benzodiazepine Urine NEGATIVE (< 200 ng/mL); Buprenorphine Urine NEGATIVE (< 200 ng/mL); Cocaine Urine NEGATIVE (< 300 ng/mL); Fentanyl, Urine NEGATIVE; Methadone Urine NEGATIVE (< 300 ng/mL); Opiates Urine NEGATIVE (< 300 ng/mL); Oxycodone, Urine NEGATIVE (< 100 ng/mL); PCP Urine NEGATIVE (< 25 ng/mL); THC Urine NEGATIVE (< 50 ng/mL)
== END | disposition home or self-care (01) ==
PROVIDERS: PCP Family Medicine; Referring Provider Anesthesiology Pain Medicine; Visit Provider Anesthesiology Pain Medicine
DX: F11.20 Opioid dependence, uncomplicated (principal)
CPT/HCPCS: 80307

== ENCOUNTER 2024-09-04 07:03 | Emergency (ER) | payer MEDICARE, SELFPAY ==
[2024-09-04 07:04] VITALS: BP 171/65; PULSE 89; RESP 20; TEMP 36.7; O2SAT 94; BMI 32.3
--- NOTE | 2024-09-04 07:32 | EX.ED.DYSGE1 ---
HPI History of Present Illness Chief Complaint: Abd Pain Informant: patient, family and EMS Narrative Narrative: 79-year-old female presenting to the emergency room chief complaint of right side pain. Patient states that last night she went to bed she had a grabbing pain in her right side that occurred whenever she would go to move. No vomiting or diarrhea. No fevers. She eventually called the ambulance this morning. She states now it seems to be better and she is moving more easily. She notes she had a bowel movement last night. She is chronically on home O2 due to COPD. She is a diabetic. She has had prior appendectomy and hysterectomy. She had [employer] for dinner. She denies any urinary symptoms. [facility] Medical History Aortic dissection, abdominal Weakness Venous stasis ulcer of left lower leg with edema of left lower leg Right knee pain Debility Generalized muscle weakness Edema of both lower extremities Muscle spasm RLS (restless legs syndrome) GERD (gastroesophageal reflux disease) MICHEL (obstructive sleep apnea) Morbid obesity with BMI of 40.0-44.9, adult Degenerative disc disease, lumbar Type 2 diabetes mellitus without complication Osteoarthritis Essential hypertension Fibromyalgia Depression COPD (chronic obstructive pulmonary disease) Home Medications ?Medication ?Instructions ?Recorded ?Last Taken ?Type albuterol sulfate 90 mcg/actuation 2 puff inhalation Q4H PRN Sob &/Or 10/14/18 Unknown History aerosol inhaler Wheezing metformin 500 mg tablet 500 mg PO DAILY Blood sugar 10/14/18 12/10/22 History ropinirole 0.5 mg tablet 1.5 mg PO QHS Restless leg 10/14/18 12/09/22 History Oxygen #1 ea 10/27/18 Unknown History ipratropium 0.5 mg-albuterol 3 mg 1 dose inhalation 4X/DAY Breathing 12/22/18 Unknown History (2.5 mg base)/3 mL nebulization soln sertraline 50 mg tablet 50 mg PO DAILY Mood 07/25/21 12/10/22 History acetaminophen 500 mg tablet 1,000 mg (2 x 500 mg) PO Q6H PRN 08/07/21 Unknown Rx PRN Pain Score 1-3 #0 tabs gabapentin 100 mg capsule 100 mg PO TIDCM nerve pain 30 days 03/02/22 07/05/23 Rx #90 caps arformoterol 15 mcg/2 mL solution 15 mcg inhalation Q12H breathing 12/11/22 Unknown History for nebulization metoprolol succinate 50 mg 50 mg PO DAILY BP/HR 30 days #0 12/15/22 Unknown Rx tablet,extended release 24 hr tabs cephalexin 500 mg capsule 500 mg PO Q6 7 days #28 caps 01/02/23 Unknown Rx doxycycline monohydrate 100 mg 100 mg PO BID 7 days #14 caps 01/02/23 Unknown Rx capsule levofloxacin 500 mg tablet 500 mg PO DAILY #7 tabs 08/28/23 Unknown Rx budesonide 160 mcg-glycopyr 9 2 inh inhalation BID 09/04/24 Unknown History mcg-formot 4.8 mcg/actuation HFA inhaler (Breztri Aerosphere) buprenorphine 7.5 mcg/hour weekly 1 patch transdermal QWEEK 09/04/24 Unknown History transdermal patch hydrochlorothiazide 12.5 mg capsule 12.5 mg PO Q12H 09/04/24 Unknown History oxybutynin chloride 5 mg 5 mg PO DAILY 09/04/24 Unknown History tablet,extended release 24 hr tramadol 50 mg tablet 50 mg PO BID PRN PRN pain 09/04/24 Unknown History Allergy/AdvReac Type Severity Reaction Status Date / Time lisinopril AdvReac Intermediate cough Verified 09/04/24 07:04 pregabalin (From Lyrica) AdvReac Swelling Verified 09/04/24 07:04 Family History Mother Cancer lymphoma Father COPD (chronic obstructive pulmonary disease) Cancer bone Son Heart disease ischemic heart disease Surgical History History of appendectomy History of tonsillectomy History of hysterectomy Social History household members: none Smoking Status: Former smoker how long ago did patient quit smokin.5 years ago alcohol intake: current alcohol intake frequency: holidays/special occasions only substance use type: does not use caffeine: Yes Type: coffee Number of servings: 1 ROS ROS ED Constitutional Constitutional ED: Denies chills, fever(s) or weight loss Eyes Eyes: Denies change in vision or diplopia ENT ENT ED: Denies ear pain, rhinorrhea or sore throat Cardiovascular Cardiovascular: Denies chest pain, orthopnea, palpitations or racing heartbeat Respiratory/Chest Respiratory/Chest: Denies cough, dyspnea or orthopnea Gastrointestinal Gastrointestinal: Reports abdominal pain; Denies diarrhea, nausea or vomiting Genitourinary Genitourinary ED: Denies dysuria, hematuria or urinary frequency Musculoskeletal Musculoskeletal: Denies arthralgias, back pain, myalgias or neck pain Integumentary Denies abscess or rash Neurologic Neurologic: Denies headache(s) or weakness Psychiatric Psychiatric: Denies anxiety, depression, suicidal ideation or suicidal thoughts Endocrine Endocrinology: Denies polydipsia, polyphagia or polyuria Allergic/Immunologic Allergic/Immunologic ED: Denies mouth swelling, tongue swelling or urticaria EXAM Physical Exam Const Vital Signs: 09/04/24 07:04 09/04/24 09:15 09/04/24 10:00 Temperature 98.1 F 98.0 F Temperature Source Oral Oral Pulse Rate 89 66 Respiratory Rate 20 H 18 Blood Pressure 171/65 H 139/83 H Blood Pressure Mean 100 101 Pulse Ox 94 97 Oxygen Delivery Method Nasal Cannula Room Air Oxygen Flow Rate (L/min) 3 Positive well nourished, well developed and obese General Appearance ED: well developed and NAD Nutritional Appearance: obese HEENT Reports normocephalic, head/scalp atraumatic and moist mucous membranes Eyes PERRL and EOMs intact bilaterally Neck no lymphadenopathy, supple and no JVD Resp normal respiratory effort and clear to auscultation bilaterally Cardio regular rate, regular rhythm and no murmurs GI normal to inspection, nondistended, normoactive bowel sounds and non-tender GI Narrative: Patient is able to sit up in the bed and then sit on the side of the bed and does not seem to have her pain with movement. Palpation: soft; Negative for tender, guarding or rebound tenderness present Back/Spine no CVA tenderness and normal ROM Extremity normal to inspection General Extremety ED: Negative for edema General Extremity: Negative for edema Neuro oriented x3 and CN's II-XII intact bilaterally Sensorium / Orientation: alert Motor Exam: strength 5/5 throughout Psych mental status grossly normal Mood & Affect: Negative for depressed or tearful Skin no rashes or lesions noted and no wounds MDM MDM MDM Narrative Medical decision making narrative: Differential diagnosis includes but not limited to abdominal aortic aneurysm biliary colic pancreatitis ureterolithiasis UTI colitis constipation mesenteric ischemia Patient's symptoms have essentially resolved. White count is normal at 5.7 hemoglobin 10.5 platelet count of 196 normal liver enzymes and lipase. Urinalysis showed positive nitrates and 2+ bacteria but 0-5 white cells 0 red cells this will be sent for culture and she is not symptomatic from a urinary standpoint. CT of the abdomen pelvis was obtained. This demonstrates a stable abdominal aortic aneurysm. Please read the radiologist read for full details. Above findings were discussed with the patient and her family. They are comfortable going home. Patient to return if worsening or concerns History & Record Review Discussion w/independent historian: Patient and Family Additional record(s) reviewed:: Prior outpatient record and Prior labs Lab Data Attestation: I reviewed the patient's lab results. Labs: Laboratory Results - last 24 hr 09/04/24 09/04/24 07:44 08:55 WBC 5.7 RBC 3.42 L Hgb 10.5 L Hct 32.2 L MCV 94.2 MCH 30.7 MCHC 32.6 RDW Std Deviation 44.6 H RDW Coeff of Stephenie 13.0 Plt Count 196 MPV 9.6 Immature Gran % (Auto) 0.300 Neut % (Auto) 68.4 Lymph % (Auto) 14.2 L [place] % (Auto) 14.5 H Eos % (Auto) 1.7 Baso % (Auto) 0.9 Absolute Neuts (auto) 3.9 Absolute Lymphs (auto) 0.81 L Nucleated RBC % 0 Sodium 140 Potassium 3.6 Chloride 98 Carbon Dioxide 29.1 Anion Gap 12 BUN 25 H Creatinine 1.07 Estim Creat Clear Calc 43.22 L Est GFR (MDRD) Non-Af 53 L BUN/Creatinine Ratio 23.6 H Glucose 114 H Calcium 9.2 Total Bilirubin 0.44 Direct Bilirubin 0.18 AST 19 ALT 8 Alkaline Phosphatase 84 Total Protein 6.6 Albumin 4.1 Globulin 2.6 Lipase 17 Urine Color Yellow Urine Clarity Clear Urine pH 7.0 Ur Specific [place] 1.010 Urine Protein Negative Urine Glucose (UA) Normal Urine Ketones Negative Urine Occult Blood 10 H Urine Nitrite Positive H Urine Bilirubin Negative Urine Urobilinogen Normal Ur Leukocyte Esterase 25 H Urine RBC 0 SEEN Urine WBC 0-5 SEEN Ur Squamous Epith Cells 0 SEEN Urine Bacteria 2+ Urine Mucus 0 SEEN Radiography Diagnostic Testing: Clinical Impression(s) from Imaging Studies Abdomen/Pelvis CT 09/04/24 08:55 IMPRESSION: 1. No acute abdominopelvic finding. 2. Stable lower thoracic and aortoiliac aneurysm as described. Follow-up with outpatient vascular surgery is recommended, with routine outpatient yearly CTA's to evaluate for stability. 3. Mild hepatomegaly. Reading Location: [facility] Discharge Plan Triage Chief Complaint: Abd Pain ED Provider: Viraj Dozier Dx/Rx/DC Orders Prescriptions: No Action (DME) Oxygen 3 liters NC Qty: 1 Dose Instruction: As directed Patient Comments: says she uses 3-4L at home Rx Instructions: As directed metformin 500 mg tablet 500 mg PO DAILY albuterol sulfate 90 mcg/actuation HFA aerosol inhaler 2 puff INHALATION Q4H PRN (Reason: Sob &/Or Wheezing) ropinirole 0.5 mg tablet 1.5 mg PO QHS ipratropium-albuterol 0.5-3MG/3 solution for nebulization 1 dose inhalation 4X/DAY sertraline 50 mg Tablet 50 mg PO DAILY acetaminophen 500 mg Tablet 1,000 mg PO Q6H PRN PRN (Reason: Pain Score 1-3) Qty: 0 0RF gabapentin 100 mg Capsule 100 mg PO TIDCM 30 Days Qty: 90 0RF doxycycline monohydrate 100 mg Capsule 100 mg PO BID 7 Days Qty: 14 0RF cephalexin 500 mg Capsule 500 mg PO Q6 7 Days Qty: 28 0RF arformoterol 15 mcg/2 mL solution for nebulization 15 mcg INHALATION Q12H metoprolol succinate 50 mg tablet extended release 24 hr 50 mg PO DAILY 30 Days Qty: 0 0RF Rx Instructions: Hold for heart less than 50 or systolic blood pressure less than 100 mmHg. tramadol 50 mg tablet 50 mg PO BID PRN PRN (Reason: pain) hydrochlorothiazide 12.5 mg capsule 12.5 mg PO Q12H oxybutynin chloride 5 mg tablet extended release 24hr 5 mg PO DAILY buprenorphine 7.5 mcg/hour patch weekly 1 patch transdermal QWEEK Breztri Aerosphere 160-9-4.8 mcg/actuation HFA aerosol inhaler 2 inh INHALATION BID levofloxacin 500 mg tablet 500 mg PO DAILY Qty: 7 0RF Primary Care Provider: Roderick Ryder Referrals: Roderick Ryder MD [Primary Care Provider] - Print Language: Swedish
[2024-09-04 08:01] LABS: Absolute Lymphocyte Count 0.81 X10^3/uL (0.83-4.51); Absolute Neutrophil Count 3.9 X10^3/uL (2.0-7.7); Basophil# 0.05 X10^3/uL; Basophil% 0.9 % (0-1); Eosinophils% 1.7 % (0-5); Hematocrit 32.2 % (37-47); Hemoglobin 10.5 g/dL (12.0-15.0); Lymphocyte # 0.81 X10^3/ul (0.83-4.51); Lymphocyte % 14.2 % (19-41); Mean Corp Hgb Conc 32.6 g/dL (32-36); Mean Corpuscular Hgb 30.7 pg (27.0-32.0); Mean Corpuscular Volume 94.2 fL (81-99); Mean Platelet Vol. 9.6 fl (6.2-12.0); Monocyte# 0.83 X10^3/uL; Monocyte% 14.5 % (0-10); NRBC Flagged by Analyzer 0 % (0-5); Neutrophil # 3.91 X10^3/uL (2.7-7.7); Neutrophil % 68.4 % (47-70); Platelet Count 196 K/mm3 (150-450); RBC Distribution Width SD 44.6 fl (35.1-43.9); Red Blood Count 3.42 M/mm3 (4.2-5.4); White Blood Count 5.7 K/mm3 (4.4-11.0)
[2024-09-04 08:49] LABS: AST(SGOT) 19 U/L (<=31); Alanine Aminotransfer ALT/SGPT 8 U/L (<=34); Albumin, Serum 4.1 g/dL (3.4-4.8); Alkaline Phosphatase 84 U/L (35-104); Anion Gap 12 (5-15); BUN 25 mg/dL (4-19); BUN/Creat Ratio 23.6 RATIO (10-20); Bilirubin, Direct 0.18 mg/dL (0.00-0.30); Calcium,Total 9.2 mg/dL (7.6-11.0); Carbon Dioxide 29.1 mmol/L (21.0-32.0); Chloride 98 mmol/L (98-108); Creatinine, Serum 1.07 mg/dL (0.70-1.20); EST Glomerular Filtration Rate 53 (>60); Estimated Creatinine Clearance 43.22 ml/min (50-250); Globulin 2.6 g/dL (2.2-4.2); Glucose 114 mg/dL (70-99); Lipase 17 U/L (13-75); Potassium 3.6 mmol/L (3.3-5.1); Protein, Total 6.6 g/dL (5.9-8.4); Sodium Level 140 mmol/L (133-145); Total Bilirubin 0.44 mg/dL (0.00-1.30)
--- NOTE | 2024-09-04 08:55 | CT_ITS ---
PROCEDURE: ABDOMEN/PELVIS W IV CONT ONLY 09/04/2024 REASON FOR EXAM: 79-year-old female, RIGHT ABDOMINAL PAIN TECHNIQUE: Abdomen and pelvis CT with intravenous contrast. Coronal and Sagittal reconstruction series were provided. PATIENT PREPARATION: Per protocol ORAL CONTRAST TYPE: None. CONTRAST: Isovue-300 VOLUME: 100ML One or more dose reduction techniques were used (e.g., Automated exposure control, adjustment of the mA and/or kV according to patient size, use of iterative reconstruction technique. RADIATION DOSE SUMMARY: CTDlvol: 21 mGy DLP: 930 mGycm COMPARISON: CT abdomen pelvis 08/28/2023. FINDINGS: Lung bases: The heart is normal in size with mitral annular calcifications. Incompletely visualized partially calcified descending thoracic aortic aneurysm, exiting into the abdomen. Liver: Mild hepatomegaly without focal mass. The major portal veins are patent. No biliary ductal dilation. Gallbladder: No radiopaque stones within the gallbladder. Spleen: Normal in size. Pancreas: Normal size without evidence of mass surrounding inflammation or ductal dilation. Punctate calcifications within the pancreatic head, unchanged since at least 2018. These do not appear within the pancreatic duct. Adrenals: Unremarkable. Kidneys: Bilateral renal cysts. No hydronephrosis or nephrolithiasis. Bladder: Mildly distended and unremarkable. Reproductive Organs: Prior hysterectomy. Bowel: The bowel loops are normal in caliber. No ascites or pneumoperitoneum. No inflammatory mass in the expected region of the appendix. Lymph nodes: No suspicious lymphadenopathy. Vasculature: No significant change in the thoracic and abdominal aortic aneurysm measuring at least 4.2 cm in AP diameter (series 2, image 31), previously measuring 4.4 cm when measured in a similar fashion. the celiac, SMA and SOO arise off the true lumen. Moderate calcific plaque of the celiac trunk at its origin. The false lumen extends into the left common iliac artery and terminates at the bifurcation of the internal and external iliac arteries. Bones: Thoracolumbar spondylosis. CT/Abdomen/Pelvis W IV Cont ONLY IMPRESSION: 1. No acute abdominopelvic finding. 2. Stable lower thoracic and aortoiliac aneurysm as described. Follow-up with outpatient vascular surgery is recommended, with routine outpatient yearly CTA's to evaluate for stability. 3. Mild hepatomegaly. Reading Location: [facility]
[2024-09-04 08:59] LABS: Mucous, Urine 0 SEEN /hpf (<or=2+); Red Blood Cells-Urine 0 SEEN /hpf (0-5); Squamous Epithelial Cells - UA 0 SEEN /hpf (5-10)
[2024-09-04 09:15] VITALS: BP 139/83; PULSE 66; RESP 18; O2SAT 97
[2024-09-04 09:19] LABS: Color, Urine Yellow (Yellow); Glucose, Dipstick Normal (Normal); Ketone-Dipstick Negative (Negative); Leukocyte Esterase-Dipstick 25 /ul (Negative); Nitrite-Dipstick Positive (Negative); Occult Blood-Urine 10 /ul (Negative); Protein-Dipstick Negative (Negative); Urine Bilirubin Dipstick Negative (Negative); Urine Clarity Clear (Clear); Urine Urobilinogen Normal (Normal)
[2024-09-04 09:21] LABS: Bacteria 2+ /hpf (None Seen); White Blood Cells 0-5 SEEN /hpf (0-5)
[2024-09-04 10:00] VITALS: TEMP 36.7
[2024-09-04 11:56] VITALS: BP 160/94; PULSE 84; RESP 16; TEMP 36.4; O2SAT 99
== END 2024-09-04 11:57 | disposition home or self-care (01) ==
PROVIDERS: Emergency Provider Emergency Medicine; PCP Family Medicine; Visit Provider Emergency Medicine
DX: R10.9 Unspecified abdominal pain (principal); J44.9 Chronic obstructive pulmonary disease, unspecified; E11.9 Type 2 diabetes mellitus without complications; Z87.891 Personal history of nicotine dependence; I10 Essential (primary) hypertension; Z90.710 Acquired absence of both cervix and uterus; Z99.81 Dependence on supplemental oxygen; Z90.49 Acquired absence of other specified parts of digestive tract; Z79.84 Long term (current) use of oral hypoglycemic drugs; G25.81 Restless legs syndrome; F32.A Depression, unspecified; Z79.899 Other long term (current) drug therapy
CPT/HCPCS: 74177; 80048; 80076; 81001; 83690; 85025; 87077; 87086; 87088; 87186; 99285; Q9967; A4216

== ENCOUNTER 2025-04-23 19:41 | Inpatient (IN) | payer MEDICARE, SELFPAY ==
[2025-04-23 19:42] VITALS: BP 159/89; PULSE 102; RESP 18; TEMP 36.4
[2025-04-23 19:51] VITALS: BMI 29.5
--- NOTE | 2025-04-23 20:07 | EKG12_ITS ---
Test Reason : DYSRHYTHMIA Blood Pressure : */* mmHG Vent. Rate : 94 BPM Atrial Rate : 94 BPM P-R Int : 118 ms QRS Dur : 88 ms QT Int : 374 ms P-R-T Axes : 46 42 63 degrees QTcB Int : 467 ms Normal sinus rhythm Nonspecific ST and T wave abnormality Abnormal ECG Confirmed by FABIANO MISTRY, TAIWO ([id number]), editor school photograph MEHDI DEL TORO ([id number]) on 04/24/2025 9:20:05 AM Referred By: Confirmed By: TAIWO MARIO MD
--- NOTE | 2025-04-23 20:09 | EDS_ITS ---
HPI HPI - GI History of Present Illness Chief Complaint: Nausea/Vomiting Informant: patient and family (Daughter at bedside.) Abdominal Pain/Flank Pain Onset: Days Context: Gradual Onset Timing: Continuous Quality: Aching Location: Diffuse Current Severity: Moderate Maximum Severity: Moderate Worsened by: Nothing Relieved by: Food Nausea/Vomiting/Emesis GI Symptom: Positive for Nausea and Vomiting Onset: Days Severity: Moderate Diarrhea/Melena/Hematochezia GI Symptom: Negative for Diarrhea, Melena or Hematochezia Associated Symptoms Associated Symptoms: Negative for Dysuria, Frequency, Hematuria or Urgency Narrative Prior similar symptoms: No Recent Illness/Hospitalization: No PFSH [facility] Medical History Ascending aortic aneurysm Upper GI bleed Aortic dissection, abdominal Weakness Venous stasis ulcer of left lower leg with edema of left lower leg Right knee pain Debility Generalized muscle weakness Edema of both lower extremities Muscle spasm RLS (restless legs syndrome) GERD (gastroesophageal reflux disease) MICHEL (obstructive sleep apnea) Morbid obesity with BMI of 40.0-44.9, adult Degenerative disc disease, lumbar Type 2 diabetes mellitus without complication Osteoarthritis Essential hypertension Fibromyalgia Depression COPD (chronic obstructive pulmonary disease) Home Medications ?Medication ?Instructions ?Recorded ?Last Taken ?Type albuterol sulfate 90 mcg/actuation 2 puff inhalation Q 4H PRN Sob &/Or 10/14/18 Unknown History aerosol inhaler Wheezing metformin 500 mg tablet 500 mg PO DAILY Blood sugar 10/14/18 12/10/22 History ropinirole 0.5 mg tablet 1.5 mg PO QHS Restless leg 0 10/14/18 12/09/22 History Oxygen #1 ea 10/27/18 Unknown Histo ry sertraline 50 mg tablet 50 mg PO DAILY Mood 07/25/21 12/10/22 History acetaminophen 500 mg tablet 1,000 mg (2 x 500 mg) PO Q 6H PRN 08/07/21 Unknown Rx PRN Pain Score 1-3 #0 tabs gabapentin 100 mg capsule 100 mg PO TIDCM nerve pain 3 0 days 08/07/21 12/10/22 Rx #90 caps metoprolol succinate 50 mg 50 mg PO DAILY BP/HR 30 day s #0 12/15/22 Unknown Rx tablet,extended release 24 hr tabs budesonide 160 mcg-glycopyr 9 2 inh inhalation BID Unknown History mcg-formot 4.8 mcg/actuation HFA inhaler (Breztri Aerosphere) buprenorphine 7.5 mcg/hour weekly 1 patch transdermal QWEEK 09/04/24 Unknown History transdermal patch hydrochlorothiazide 12.5 mg capsule 12.5 mg PO Q12H Unknown History oxybutynin chloride 5 mg 5 mg PO DAILY 09/04/24 Unkno wn History tablet,extended release 24 hr tramadol 50 mg tablet 50 mg PO BID PRN PRN pain Unknown History baclofen 10 mg tablet 10 mg PO TID 04/23/25 Unknow n History ferrous sulfate 325 mg (65 mg PO 04/23/25 Unknown Hist ory iron) tablet (FeroSul) Allergy/AdvReac Type Severity Reaction Status Date / Time lisinopril AdvReac Intermediate cough Verified 04/23/25 19:43 pregabalin (From Lyrica) AdvReac Swelling Verified 04/23/25 19:43 Family History Mother Cancer lymphoma Father COPD (chronic obstructive pulmonary disease) Cancer bone Son Heart disease ischemic heart disease Surgical History History of appendectomy History of tonsillectomy History of hysterectomy Social History household members: none Smoking Status: Former smoker how long ago did patient quit smokin.5 years ago alcohol intake: current alcohol intake frequency: holidays/special occasions only substance use type: does not use caffeine: Yes Type: coffee Number of servings: 1 ROS ROS ED ROS Narrative Abdominal pain. Nausea and vomiting x 1 week. Constitutional Constitutional ED: Denies chills or fever(s) ENT ENT ED: Denies ear pain Cardiovascular Cardiovascular: Denies chest pain Respiratory/Chest Respiratory/Chest: Denies cough or dyspnea Gastrointestinal Gastrointestinal: Reports abdominal pain, nausea and vomiting; Denies diarrhea or melena Genitourinary Genitourinary ED: Denies dysuria or hematuria Musculoskeletal Musculoskeletal: Denies arthralgias Integumentary Denies abscess Neurologic Neurologic: Denies headache(s) Psychiatric Psychiatric: Denies anxiety Endocrine Endocrinology: Denies polydipsia Hematologic/Lymphatic Hematologic/Lymphatic: Denies easy bleeding Allergic/Immunologic Allergic/Immunologic ED: Denies mouth swelling, tongue swelling or urticaria EXAM Physical Exam Narrative Exam Narrative: Signs of-year-old female sitting upright in bed. Daughter at bedside. Patient is actively nauseated. Holding emesis bag. Vital signs are stable afebrile. She is chronically on oxygen due to COPD. H EENT exam pupils are react light. Very dry mucous membranes. No trauma to her face or scalp. Neck nontender no lymphadenopathy. Back nontender. Lungs coarse breath sounds bilaterally. Heart tachycardic 102 no murmur. Chest wall ribs nontender. Abdomen mildly distended diffusely tender. No rebound or guarding. No hernia or mass. Present but decreased bowel sounds. Moving all 4 extremities. Chronic trace edema lower extremities. Normal build technician strength. Normal dorsi plantarflexion. Neurologically she is awake alert. Answering questions following commands. Const Vital Signs: 04/23/25 19:42 04/23/25 21:41 04/23/25 23:00 Temperature 97.6 F L Temperature Source Temporal Pulse Rate 102 H 80 87 Respiratory Rate 18 16 16 Blood Pressure 159/89 H 114/66 111/64 Blood Pressure Mean 112 82 79 Pulse Ox 97 96 Oxygen Delivery Method Nasal Cannula Room Air Room Air Oxygen Flow Rate (L/min) 3 MDM MDM MDM Narrative Medical decision making narrative: 79-year-old female prior appendectomy and hysterectomy with nausea and vomiting times a week decreased oral intake decreased bowel movements last bowel movement was 4 to 5 days ago. This may be a bowel obstruction could be other acute intra-abdominal pathology, possible GI bleed versus other etiologies. CAT scan labs to be obtained. Morphine for pain. Zofran for nausea. IV fluid bolus for dehydration. Type and screen in case this is an upper GI bleed. Protonix also for possibility of an upper GI bleed. Repeat exam patient is improved after the morphine and Zofran. On repeat abdominal exam she still is that she has obstruction. She does have area of tenderness in her right inguinal area feels to be an incarcerated right inguinal hernia. At this time I am unable to reduce it. It is tender to palpation. Patient states that has been that way for like a week. I have spoken to the general surgery on-call Dr. Cassy Mcghee. She has also reviewed the CAT scan and will be and evaluate the patient. Patient was given a second liter normal saline due to her acute kidney injury and dehydration, secondary to morphine and Zofran. History & Record Review Discussion w/independent historian: Patient and Family Additional record(s) reviewed:: Prior inpatient record, Prior outpatient record, Prior ED visit and Prior labs Lab Data Attestation: I reviewed the patient's lab results. Lab results narrative: CBC shows a white count of 11.0. H&H 14 and 42. Platelets 273. Blood type A positive. Chemistry shows sodium 133. Gap 22. BUN and creatinine is 76 and 2.15 consistent with acute kidney injury. Glucose 150. Lactic acid 1.8. Liver enzymes normal. Amylase normal at 46. Lipase normal at 32. Urinalysis negative. No nitrates. No white or red cells. 3+ bacteria. CT abdomen pelvis looks like a small bowel obstruction. Awaiting formal radiology interpretation. Labs: Laboratory Results - last 24 hr 04/23/25 04/23/25 20:25 23:00 WBC 11.0 RBC 4.64 Hgb 14.4 Hct 42.6 MCV 91.8 MCH 31.0 MCHC 33.8 RDW Std Deviation 43.0 RDW Coeff of Stephenie 12.9 Plt Count 273 MPV 10.8 Immature Gran % (Auto) 0.500 Neut % (Auto) 86.9 H Lymph % (Auto) 2.2 L [place] % (Auto) 9.4 Eos % (Auto) 0.5 Baso % (Auto) 0.5 Absolute Neuts (auto) 9.6 H Absolute Lymphs (auto) 0.24 L Nucleated RBC % 0.2 Sodium 133 Potassium 3.7 Chloride 78 L Carbon Dioxide 32.9 H Anion Gap 22 H BUN 76 H Creatinine 2.15 H Estim Creat Clear Calc 20.54 L Est GFR (MDRD) Non-Af 23 L BUN/Creatinine Ratio 35.3 H Glucose 150 H Lactic Acid 1.8 Calcium 10.3 Total Bilirubin 0.94 AST 28 ALT 8 Alkaline Phosphatase 86 Total Protein 7.8 Albumin 4.5 Globulin 3.3 Albumin/Globulin Ratio 1.4 Amylase 46 Lipase 32 Urine Color Yellow Urine Clarity Clear Urine pH 5.0 Ur Specific [place] 1.015 Urine Protein 30 H Urine Glucose (UA) Normal Urine Ketones 15 H Urine Occult Blood 25 H Urine Nitrite Negative Urine Bilirubin Negative Urine Urobilinogen Normal Ur Leukocyte Esterase Negative Urine RBC 0-5 SEEN Urine WBC 0 SEEN Ur Squamous Epith Cells 5-10 SEEN Amorphous Sediment 2+ Urine Bacteria 3+ Urine Mucus 1+ Blood Type A POSITIVE Antibody Screen NEGATIVE Rhythm Strip Rhythm Strip: Sinus Rhythm Rate: 94 Ectopy: None EKG Initial EKG: Attestation: I personally reviewed and interpreted this EKG as follows: Interpretation: Sinus Rhythm and No Acute Injury Pattern Comments: Normal sinus rhythm. Rate 94 no acute signs of OH or ischemia. Discharge Plan Dx/Rx/DC Orders Clinical Impression: Complete obstruction of small intestine, Incarcerated right inguinal hernia, Nausea & vomiting, Acute kidney injury, Acute dehydration, History of diabetes mellitus, History of COPD, History of CHF (congestive heart failure), History of aortic dissection Disposition Disposition: [facility] D/C Safety Score for UGIB Assessment [place] Bleeding Score (GBS): Stratifies upper GI bleeding patients who are low-risk and candidates for outpatient management. Hemoglobin, BUN, Recent Vital Signs: Hgb 14.4 g/dL (12.0-15.0) 04/23/25 20:25 BUN 76 mg/dL (4-19) H 04/23/25 20:25 Pulse Rate 87 Blood Pressure 111/64 Score Interpretation: Score of 0: A GBS of 0 is a ?Low Risk? GI bleed, and is highly sensitive (99.6% in a 2007 retrospective study) for predicting which patients did not require any ?medical intervention?: blood transfusion, endoscopy, or surgery. This was confirmed in a 2009 Lanc study where patients with a score of 0 were actually discharged and had no GI bleeding mortality at 6 month followup Score above 0: A GBS greater than zero suggests a ?High Risk? GI bleed that is likely to require ?medical intervention?: transfusion, endoscopy, or surgery. A higher GBS also correlated with a higher likelihood of needing intervention Scores >/= 6 are associated with >50% risk of needing intervention D/C Safety Score for LGIB Assessment Assessment Tool: Readmission and adverse event risk in patients with acute lower GI bleeding. Hemoglobin and Recent Vital Signs: Hgb 14.4 g/dL (12.0-15.0) 04/23/25 20:25 Pulse Rate 87 04/23/25 23:00 Blood Pressure 111/64 04/23/25 23:00 Score Interpretation: Probability Percentage of safe discharge (absence of rebleeding, blood transfusion, therapeutic intervention, 28 day readmission, or ) Score of 8 or below: Consider discharge, with appropriate precautions. Score of 9 or above: Discharge NOT recommended. Consider admission with further workup and resuscitation as necessary.
[2025-04-23 20:32] LABS: Hematocrit 42.6 % (37-47); Hemoglobin 14.4 g/dL (12.0-15.0); Immature Granulocytes Count 0.060 X10^3/uL (0.0-0.0); Mean Corp Hgb Conc 33.8 g/dL (32-36); Mean Corpuscular Volume 91.8 fL (81-99); Mean Platelet Vol. 10.8 fl (6.2-12.0); NRBC Flagged by Analyzer 0.2 % (0-5); POSITIVE DIFFERENTIAL YES; Platelet Count 273 K/mm3 (150-450); RBC Distribution Width CV 12.9 % (11.6-14.6); RBC Distribution Width SD 43.0 fl (35.1-43.9); Red Blood Count 4.64 M/mm3 (4.2-5.4); White Blood Count 11.0 K/mm3 (4.4-11.0)
[2025-04-23] MEDS: 0.9% Normal Saline (1000mL) 1,000 ML 999 ML IV ×2 (20:34→23:49)
[2025-04-23] MEDS: Pantoprazole Sodium 80 MG in 0.9% Normal Saline (50mL Bag) 15 ML 420 MG IV BOLUS (20:42)
[2025-04-23 21:39] LABS: Amylase 46 U/L (28-100); Lipase 32 U/L (13-75)
[2025-04-23 21:41] VITALS: BP 114/66; PULSE 80; RESP 16; O2SAT 97
[2025-04-23 21:54] LABS: AST(SGOT) 28 U/L (<=31); Alanine Aminotransfer ALT/SGPT 8 U/L (<=34); Albumin, Serum 4.5 g/dL (3.4-4.8); Alkaline Phosphatase 86 U/L (35-104); Anion Gap 22 (5-15); BUN 76 mg/dL (4-19); BUN/Creat Ratio 35.3 RATIO (10-20); Calcium,Total 10.3 mg/dL (7.6-11.0); Carbon Dioxide 32.9 mmol/L (21.0-32.0); Chloride 78 mmol/L (98-108); Estimated Creatinine Clearance 20.54 ml/min (50-250); Globulin 3.3 g/dL (2.2-4.2); Glucose 150 mg/dL (70-99); Potassium 3.7 mmol/L (3.3-5.1)
--- NOTE | 2025-04-23 22:33 | CT_ITS ---
PROCEDURE: ABDOMEN/PELVIS W IV CONT ONLY 04/23/2025 REASON FOR EXAM: ABDOMINAL PAIN AND NAUSEA AND VOMITING. TECHNIQUE: Procedure Code: [id number] Modality: CT Procedure: ABDOMEN/PELVIS W IV CONT ONLY Coronal and Sagittal reconstruction series were provided. CONTRAST: OMNIPAQUE 350 VOLUME: 100 mL One or more dose reduction techniques were used (e.g., Automated exposure control, adjustment of the mA and/or kV according to patient size, use of iterative reconstruction technique. RADIATION DOSE SUMMARY: CTDlvol: 18.07 mGy DLP: 851 mGycm COMPARISON: CT scan on 09/04/2024. FINDINGS: Moderate partial small bowel obstruction. Transition zone in the right inguinal hernia, possibly secondary to incarceration. No evidence of bowel perforation or pneumatosis intestinalis. Unchanged partially calcified descending thoracic aortic aneurysm extending to the abdomen. Bilateral basilar atelectatic pulmonary changes. Bilateral basilar multifocal ground-glass densities of the lungs, probably pneumonia. Prior appendectomy. Uncomplicated colonic diverticulosis. Bilateral scattered simple renal cysts are noted with the largest measuring 3.5 cm. Prior hysterectomy. Moderate diffuse spondylosis. Scattered chronic pancreatic calcifications are noted. The visualized lung bases are unremarkable. Normal liver. Normal gallbladder and extrahepatic biliary system. Normal spleen. Normal bilateral adrenal glands. Normal size of the right kidney. There is no right renal mass. There are no right renal calculi. There is no right hydronephrosis. Normal visualized right ureter. Normal size of the left kidney. There is no left renal mass. There are no left renal calculi. There is no left hydronephrosis. Normal visualized left ureter. There is no demonstrated peritoneal fluid. Normal inferior vena cava. Normal retroperitoneum. Normal urinary bladder. There is no pelvic mass lesion or lymphadenopathy. There is no pelvic fluid. CT/Abdomen/Pelvis W IV Cont ONLY IMPRESSION: Moderate partial small bowel obstruction. Transition zone in the right inguinal hernia, possibly secondary to incarcerati on. No evidence of bowel perforation or pneumatosis intestinalis. Unchanged partially calcified descending thoracic aortic aneurysm extending to the abdomen. Bilateral basilar atelectatic pulmonary changes. Bilateral basilar multifocal ground-glass densities of the lungs, probably pneu monia. Prior appendectomy. Uncomplicated colonic diverticulosis. Bilateral scattered simple renal cysts are noted with the largest measuring 3.5 cm. Prior hysterectomy. Moderate diffuse spondylosis. Scattered chronic pancreatic calcifications are noted. I discussed the findings with Dr. Miguel Hilliard in ED at 3:10 a.m. EST. Reading [facility]
[2025-04-23 23:00] VITALS: BP 111/64; PULSE 87; RESP 16; O2SAT 96
[2025-04-23 23:09] LABS: Color, Urine Yellow (Yellow); Glucose, Dipstick Normal (Normal); Ketone-Dipstick 15 mg/dl (Negative); Leukocyte Esterase-Dipstick Negative /ul (Negative); Nitrite-Dipstick Negative (Negative); Occult Blood-Urine 25 /ul (Negative); Protein-Dipstick 30 mg/dl (Negative); Specific Gravity, Urine 1.015 (1.002-1.030); Urine Bilirubin Dipstick Negative (Negative)
[2025-04-23 23:18] LABS: Squamous Epithelial Cells - UA 5-10 SEEN /hpf (5-10)
[2025-04-23 23:19] LABS: Mucous, Urine 1+ /hpf (<or=2+); Red Blood Cells-Urine 0-5 SEEN /hpf (0-5)
--- NOTE | 2025-04-23 23:59 | RAD_ITS ---
PROCEDURE: ABDOMEN SINGLE VIEW (PORTABLE) 04/24/2025 REASON FOR EXAM: POST NG PLACEMENT TECHNIQUE: Procedure Code: RADABD_P Modality: DX Procedure: ABDOMEN SINGLE VIEW (PORTABLE) COMPARISON: CT scan on 04/23/2025. FINDINGS: Mild bilateral basilar atelectatic changes/infiltrates. Enteric feeding tube is in good position with its tip at the level of the gastric body. Diffuse distention of the bowels, probably secondary to bowel obstruction. There is no demonstrated free abdominal air. Normal visualized liver. Normal visualized spleen. Normal visualized kidneys. The soft tissue structures of the pelvis are unremarkable. Diffuse spondylosis. RAD/Abdomen Single View (Portable) IMPRESSION: Mild bilateral basilar atelectatic changes/infiltrates. Enteric feeding tube is in good position with its tip at the level of the gastr ic body. Diffuse distention of the bowels, probably secondary to bowel obstruction. Reading Location: [facility]
[2025-04-24] VITALS (40 sets, daily range): BP systolic 65–131; BP diastolic 40–80; PULSE 73–113; RESP 13–25; TEMP 36.3–37.8; O2SAT 90–100; BMI 29.5; BMI 32.4
--- NOTE | 2025-04-24 00:12 | PCM.HP.STD ---
HPI - General General Date of Admission: 04/24/25 HPI Narrative ENZO VAZQUEZ, is a 79 F who presents due to nausea and vomiting and right groin bulge. Patient states that she noticed a bulge and pain in the right groin for a couple weeks. Daughter and patient states that she has had nausea and vomiting for the last week and initially thought it was food poisoning. CT abdomen pelvis does show small bowel obstruction due to the right femoral vs inguinal incarcerated hernia. Patient white blood count 11. Patient is getting NG placed in the ER. 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 Was initially hospitalized at that time for initial workup?I do not have any access to those records. [facility] Medical History Ascending aortic aneurysm Upper GI bleed Aortic dissection, abdominal Weakness Venous stasis ulcer of left lower leg with edema of left lower leg Right knee pain Debility Generalized muscle weakness Edema of both lower extremities Muscle spasm RLS (restless legs syndrome) GERD (gastroesophageal reflux disease) MICHEL (obstructive sleep apnea) Morbid obesity with BMI of 40.0-44.9, adult Degenerative disc disease, lumbar Type 2 diabetes mellitus without complication Osteoarthritis Essential hypertension Fibromyalgia Depression COPD (chronic obstructive pulmonary disease) Home Medications ?Medication ?Instructions ?Recorded ?Last Taken ?Type albuterol sulfate 90 mcg/actuation 2 puff inhalation Q4H PRN Sob &/Or 10/14/18 Unknown History aerosol inhaler Wheezing metformin 500 mg tablet 500 mg PO DAILY Blood sugar 10/14/18 12/10/22 History ropinirole 0.5 mg tablet 1.5 mg PO QHS Restless leg 10/14/18 12/09/22 History Oxygen #1 ea 10/27/18 Unknown History sertraline 50 mg tablet 50 mg PO DAILY Mood 07/25/21 12/10/22 History acetaminophen 500 mg tablet 1,000 mg (2 x 500 mg) PO Q6H PRN 08/07/21 Unknown Rx PRN Pain Score 1-3 #0 tabs gabapentin 100 mg capsule 100 mg PO TIDCM nerve pain 30 days 08/07/21 12/10/22 Rx #90 caps metoprolol succinate 50 mg 50 mg PO DAILY BP/HR 30 days #0 12/15/22 Unknown Rx tablet,extended release 24 hr tabs budesonide 160 mcg-glycopyr 9 2 inh inhalation BID 09/04/24 Unknown History mcg-formot 4.8 mcg/actuation HFA inhaler (Breztri Aerosphere) buprenorphine 7.5 mcg/hour weekly 1 patch transdermal QWEEK 09/04/24 Unknown History transdermal patch hydrochlorothiazide 12.5 mg capsule 12.5 mg PO Q12H 09/04/24 Unknown History oxybutynin chloride 5 mg 5 mg PO DAILY 09/04/24 Unknown History tablet,extended release 24 hr tramadol 50 mg tablet 50 mg PO BID PRN PRN pain 09/04/24 Unknown History baclofen 10 mg tablet 10 mg PO TID 04/23/25 Unknown History ferrous sulfate 325 mg (65 mg PO 04/23/25 Unknown History iron) tablet (FeroSul) Allergy/AdvReac Type Severity Reaction Status Date / Time lisinopril AdvReac Intermediate cough Verified 04/23/25 19:43 pregabalin (From Lyrica) AdvReac Swelling Verified 04/23/25 19:43 Family History Mother Cancer lymphoma Father COPD (chronic obstructive pulmonary disease) Cancer bone Son Heart disease ischemic heart disease Surgical History History of appendectomy History of tonsillectomy History of hysterectomy Social History household members: none Smoking Status: Former smoker how long ago did patient quit smokin.5 years ago alcohol intake: current alcohol intake frequency: holidays/special occasions only substance use type: does not use caffeine: Yes Type: coffee Number of servings: 1 Vital Signs Vital Signs Vital Signs: 04/23/25 19:42 04/23/25 21:41 04/23/25 23:00 Temperature 97.6 F L Temperature Source Temporal Pulse Rate 102 H 80 87 Respiratory Rate 18 16 16 Blood Pressure 159/89 H 114/66 111/64 Blood Pressure Mean 112 82 79 Pulse Ox 97 96 Oxygen Delivery Method Nasal Cannula Room Air Room Air Oxygen Flow Rate (L/min) 3 Weight Weight: 161 lb 9.581 oz Body Mass Index (BMI) 29.5 Physical Exam Const alert and oriented x3 HEENT normocephalic and head/scalp atraumatic Resp normal respiratory effort Resp Narrative: Patient on 3 L nasal cannula chronically at home Cardio regular rate GI soft to palpation GI Narrative: Diffusely tender, right inguinal versus femoral hernia incarcerated unable to reduce Inspection: abdominal distention Palpation: Negative for guarding Extremity no clubbing, cyanosis or edema Skin no rashes or lesions noted Neuro CN's II-XII intact bilaterally Psych mental status grossly normal Results Lab / Micro Data 04/23/25 20:25 04/23/25 20:25 Labs: Laboratory Results - last 24 hr 04/23/25 20:25: WBC 11.0, RBC 4.64, Hgb 14.4, Hct 42.6, MCV 91.8, MCH 31.0, MCHC 33.8, RDW Std Deviation 43.0, RDW Coeff of Stephenie 12.9, Plt Count 273, MPV 10.8, Immature Gran % (Auto) 0.500, Neut % (Auto) 86.9 H, Lymph % (Auto) 2.2 L, [place] % (Auto) 9.4, Eos % (Auto) 0.5, Baso % (Auto) 0.5, Absolute Neuts (auto) 9.6 H, Absolute Lymphs (auto) 0.24 L, Nucleated RBC % 0.2, Sodium 133, Potassium 3.7, Chloride 78 L, Carbon Dioxide 32.9 H, Anion Gap 22 H, BUN 76 H, Creatinine 2.15 H, Estim Creat Clear Calc 20.54 L, Est GFR (MDRD) Non-Af 23 L, BUN/Creatinine Ratio 35.3 H, Glucose 150 H, Lactic Acid 1.8, Calcium 10.3, Total Bilirubin 0.94, AST 28, ALT 8, Alkaline Phosphatase 86, Total Protein 7.8, Albumin 4.5, Globulin 3.3, Albumin/Globulin Ratio 1.4, Amylase 46, Lipase 32, Blood Type A POSITIVE, Antibody Screen NEGATIVE 04/23/25 23:00: Urine Color Yellow, Urine Clarity Clear, Urine pH 5.0, Ur Specific [place] 1.015, Urine Protein 30 H, Urine Glucose (UA) Normal, Urine Ketones 15 H, Urine Occult Blood 25 H, Urine Nitrite Negative, Urine Bilirubin Negative, Urine Urobilinogen Normal, Ur Leukocyte Esterase Negative, Urine RBC 0-5 SEEN, Urine WBC 0 SEEN, Ur Squamous Epith Cells 5-10 SEEN, Amorphous Sediment 2+, Urine Bacteria 3+, Urine Mucus 1+ Rhythm Strip Rhythm Strip: Sinus Rhythm Rate: 94 Ectopy: None Assessment & Plan Assessment/Plan (1) Complete obstruction of small intestine: (2) History of aortic dissection: (3) History of CHF (congestive heart failure): (4) History of COPD: (5) Acute kidney injury: (6) Incarcerated femoral hernia: PLAN: Plan Plan for diagnostic laparoscopy, possible laparotomy, possible bowel resection. Discussed risk including but not limited to bleeding, infection, need for possible bowel resection, injury to another organ, remaining intubated after the procedure in the ICU. Discussed with patient and her daughter this may be incarcerated right femoral versus right inguinal hernia may also need open procedure at the right groin to get the bowel reduced. Patient and daughter had no further question this time. Ella Mcghee M.D. Pager: [phone] [facility] [address] [place] [address], [address] [place] [address] Office: [phone]
[2025-04-24] MEDS: Oxymetazoline 0.05% 1 SPRAY SPRAY.BTL 2 SPRAY NASAL (00:19)
--- NOTE | 2025-04-24 00:36 | CON.PCM.HO_ITS ---
Assessment & Plan Assessment/Plan (1) Incarcerated femoral hernia: PLAN: Plan The patient is a 79 y/o F w/ PMHx: Obesity, MICHEL, Anxiety and Depression, COPD, GERD w/ Hx GI bleed, RLS, descending thoracic aortic aneurysm, Former tobacco use who presents to the [facility] ED on 04/23/2025 with onset of progressively worsening intractable nausea and emesis, generalized abdominal discomfort not abating over the last week with patient reporting dark appearing emesis. #1. Abdominal pain, nausea, emesis w/ incarcerated hernia suspected with resulting bowel obstruction: Patient being transition from the ED to the OR, following will be admitted to general surgery possibly to the ICU, expect continued IV fluids, possibly continue NG tube, would continue strict I&Os, IV pain/anti-emetics PRN, serial KUB as needed to montior bowel function, IV p.o. but will defer to surgery discretion. #2. Acute kidney injury on CKD stage II per GFR trending: Secondary to acute presentation as noted #1. Admission BUN/Cr 76/2.15, GFR 23, prior baseline creatinine noted to be primarily 0.7-1.0. Will hydrate, hold nephrotoxic medications and repeat chemistry in AM. If no improvement would plan FeNa assessment. #3. Acute hypochloremia: Given intractable nausea and emesis, poor intake certainly suspect hypovolemic etiology, admission chloride 78, sodium 133, would recommended continued hydration and level trending. #4. Elevated anion gap with mild hyperglycemia of unclear significance with underlying diabetes mellitus type II with chronic neuropathy: Patient does have acute kidney injury and mild hyperglycemia but to be cautious will obtain hydroxybutyrate acid level. Will in the interim maintain as noted n.p.o. status, maintain on every 6 hour accu checks w/ ISS. Holding gabapentin. #5. Chronic pain syndrome: Given acute presentation will require continued IV as needed pain regimen, addition of oral once appropriate, temporally will hold gabapentin, unfortunately given presentation will need to hold baclofen and may need to consider transition to Ativan IV 3 times daily scheduled to avoid withdrawal component however will await postoperative course to see if this is going to be a long-term. #6. Descending thoracic aortic aneurysm: Most recently noted imaging study chest CTA 12/22/2018 with a 4.8 descending thoracic aortic aneurysm with type B dissection extending the proximal abdominal aorta, encourage continued follow-up with repeat imaging as previously arranged outpatient. #7. Chronic COPD: Will temporally hold home inhaler in the interim will maintain on ATC but S9 therapy, PRN albuterol, HOB, IS parameters. #8. Hypertension: Will hold all hypertensive medication and in the interim we will maintain on IV hydralazine, if necessary may consider adding scheduled IV beta-nabeel therapy. #9. RLS: Will temporally hold home Requip regimen, if necessary may give judicious usage of IV benzodiazepine. #10. Anxiety and depression: Will temporally hold home sertraline regimen. #11. MICHEL: Defer any PAP therapy usage given presentation as noted. #12. GERD with history GI bleed: Recommend usage of IV PPI but defer to surgery aggression. #13. Former tobacco use: Encourage continued tobacco cessation. #14. DVT prophylaxis: SCDs, hold chemoprophylaxis for planned OR. #15. CODE status: Patient HCPOA are her 2 daughters and living will is currently in place. Discussed CODE status at length including difference between FULL code, DNR-CCA and DNR-CC status. Following discussions about the differences in these status, requested Full Code status. Advanced Care Planning Face to Face Time: 16 minutes. HPI Consult Data Date of Consult: 04/24/25 HPI Narrative Reason for Consultation: Medical management. HPI Narrative: The patient is a 79 y/o F w/ PMHx: Obesity, MICHEL, Anxiety and Depression, COPD, GERD w/ Hx GI bleed, RLS, descending thoracic aortic aneurysm, Former tobacco use who presents to the [facility] ED on 04/23/2025 with onset of progressively worsening intractable nausea and emesis, generalized abdominal discomfort not abating over the last week with patient reporting dark appearing emesis. Patient notes recent lack of flatus, worsening abdominal distention. She notes her abdominal discomfort was 8-9 out of 10 in severity prior to ED interventions including NG tube, currently improved to 5 out of 10 in severity. Workup in the ED included T97.6, heart rate 102, BP 159/89, respiratory rate 18, 97% on 3 L with most recent repeat vitals heart rate 80, BP 114/66, CBC with WBC 11, hematin 14.4, platelet 273 with left shift and lymphopenia, CMP with chloride 78, carbon oxide 32.9, anion gap 22, BUN/creatinine 76/2.15, GFR 23, glucose 150, hepatic profile unremarkable, amylase/lipase normal levels, lactic acid 1.8, EKG with sinus rhythm with no acute evidence of ischemia. In the ED patient administered 1 L normal saline, Protonix bolus, Zofran 4 mg IV x 1, morphine 4 mg IV x 1. Type and screen initiated per ED physician, CT A/P obtained and final radiology read pending upon evaluation but reviewed by general surgery with concern for incarcerated hernia with bowel obstruction associated, NG tube placed with repeat follow-up KUB. ED physician discussed case with surgery who evaluated patient and reviewed imaging studies with concern as noted for incarcerated hernia with bowel obstruction with plan to transition from ED the OR. Hospitalist consultation requested for medical management/assistance. FORMERLY [facility] Medical History Ascending aortic aneurysm Upper GI bleed Aortic dissection, abdominal Weakness Venous stasis ulcer of left lower leg with edema of left lower leg Right knee pain Debility Generalized muscle weakness Edema of both lower extremities Muscle spasm RLS (restless legs syndrome) GERD (gastroesophageal reflux disease) MICHEL (obstructive sleep apnea) Morbid obesity with BMI of 40.0-44.9, adult Degenerative disc disease, lumbar Type 2 diabetes mellitus without complication Osteoarthritis Essential hypertension Fibromyalgia Depression COPD (chronic obstructive pulmonary disease) Home Medications ?Medication ?Instructions ?Recorded ?Last Taken ?Type albuterol sulfate 90 mcg/actuation 2 puff inhalation Q 4H PRN Sob &/Or 10/14/18 Unknown History aerosol inhaler Wheezing metformin 500 mg tablet 500 mg PO DAILY Blood sugar 10/14/18 12/10/22 History ropinirole 0.5 mg tablet 1.5 mg PO QHS Restless leg 0 10/14/18 12/09/22 History Oxygen #1 ea 10/27/18 Unknown Histo ry sertraline 50 mg tablet 50 mg PO DAILY Mood 07/25/21 12/10/22 History acetaminophen 500 mg tablet 1,000 mg (2 x 500 mg) PO Q 6H PRN 08/07/21 Unknown Rx PRN Pain Score 1-3 #0 tabs gabapentin 100 mg capsule 100 mg PO TIDCM nerve pain 3 0 days 08/07/21 12/10/22 Rx #90 caps metoprolol succinate 50 mg 50 mg PO DAILY BP/HR 30 day s #0 12/15/22 Unknown Rx tablet,extended release 24 hr tabs budesonide 160 mcg-glycopyr 9 2 inh inhalation BID Unknown History mcg-formot 4.8 mcg/actuation HFA inhaler (Breztri Aerosphere) buprenorphine 7.5 mcg/hour weekly 1 patch transdermal QWEEK 09/04/24 Unknown History transdermal patch hydrochlorothiazide 12.5 mg capsule 12.5 mg PO Q12H Unknown History oxybutynin chloride 5 mg 5 mg PO DAILY 09/04/24 Unkno wn History tablet,extended release 24 hr tramadol 50 mg tablet 50 mg PO BID PRN PRN pain Unknown History baclofen 10 mg tablet 10 mg PO TID 04/23/25 Unknow n History ferrous sulfate 325 mg (65 mg PO 04/23/25 Unknown Hist ory iron) tablet (FeroSul) Allergy/AdvReac Type Severity Reaction Status Date / Time lisinopril AdvReac Intermediate cough Verified 04/23/25 19:43 pregabalin (From Lyrica) AdvReac Swelling Verified 04/23/25 19:43 Family History Mother Cancer lymphoma Father COPD (chronic obstructive pulmonary disease) Cancer bone Son Heart disease ischemic heart disease Surgical History History of appendectomy History of tonsillectomy History of hysterectomy Social History household members: none Smoking Status: Former smoker how long ago did patient quit smokin.5 years ago alcohol intake: current alcohol intake frequency: holidays/special occasions only substance use type: does not use caffeine: Yes Type: coffee Number of servings: 1 ROS ROS Narrative Admission Review of Systems: CONSTITUTIONAL: No weight loss, fever, chills, + weakness or fatigue. HEENT: Eyes: No visual loss, blurred vision, double vision or yellow sclerae. Ears, Nose, Throat: No hearing loss, sneezing, congestion, runny nose or sore throat. SKIN: No rash or itching, lesions, wounds except + occasional stage ecchymoses, abrasion. CARDIOVASCULAR: No chest pain, chest pressure or chest discomfort, palpitations, edema, orthopnea, syncopal events. RESPIRATORY: No shortness of breath, cough or sputum, wheezing, hemoptysis. GASTROINTESTINAL: + anorexia, nausea, vomiting, abdominal distention, abdominal pain, lack of flatus/lack of bowel movement, dark or emesis but not specifically coffee-ground. No melena or bright red blood per rectum. GENITOURINARY: No dysuria, frequency, urgency or retention. NEUROLOGICAL: No headache, dizziness, syncope, paralysis, ataxia, numbness or tingling in the extremities, focal weakness, change in bowel or bladder control, seizure. MUSCULOSKELETAL: + muscle, back pain, joint pain or stiffness. HEMATOLOGIC: + Chronic anemia, easy bleeding/bruising. LYMPHATICS: No enlarged nodes. No history of splenectomy. PSYCHIATRIC: No history of depression or anxiety. ENDOCRINOLOGIC: No reports of sweating, cold or heat intolerance. No polyuria or polydipsia. ALLERGIES: No history of asthma, hives, eczema or rhinitis. Physical Exam Narrative Physical Examination: General: Awake, alert, oriented x 3 and cooperative, seated upright in the ED bed, fatigued, status post NG tube placement, reports abdominal distention/pain improved now to 5 out of 10 in severity. Skin: Normal color, normal turgor, no icterus, no cyanosis except occasional stage ecchymoses, abrasion. HEENT: AT/NC, EOMI, PERRLA, dry MM, NG tube in place to suction, no carotid bruits or JVD noted. Lungs: Diminished, greater bases, proper effort, no appreciated rales, ronchi or wheezing. Heart: Regular rate and rhythm; no gallop, rub audible. Abdomen: Soft, overweight, significantly diffusely tender although she notes improved status post NG tube placement, distended, tympanitic, decreased bowel sounds however some active the left lower quadrant especially why suction is being adjusted, difficult to assess HSM given habitus. Extremities: No cyanosis, no clubbing, mild bilateral ankle nonpitting edema, chronic Neurological: Patient awake, alert, oriented as noted, cognitive function intact; pupils equally reactive to light and accommodation, cranial nerves grossly normal, moving all 4 extremities, no focal deficits, strength severely globally decreased Psychiatric: Affect appears fatigued, uncomfortable, no acute evidence of depressive or anxiety feelings. Lab / Micro Data 04/23/25 20:25 04/23/25 20:25 Labs: Laboratory Results - last 24 hr 04/23/25 20:25: WBC 11.0, RBC 4.64, Hgb 14.4, Hct 42.6, MCV 91.8, MCH 31.0, MCHC 33.8, RDW Std Deviation 43.0, RDW Coeff of Stephenie 12.9, Plt Count 273, MPV 10.8, Immature Gran % (Auto) 0.500, Neut % (Auto) 86.9 H, Lymph % (Auto) 2.2 L, [place] % (Auto) 9.4, Eos % (Auto) 0.5, Baso % (Auto) 0.5, Absolute Neuts (auto) 9.6 H, A bsolute Lymphs (auto) 0.24 L, Nucleated RBC % 0.2, Sodium 133, Potassium 3.7, C hloride 78 L, Carbon Dioxide 32.9 H, Anion Gap 22 H, BUN 76 H, Creatinine 2.15 H , Estim Creat Clear Calc 20.54 L, Est GFR (MDRD) Non-Af 23 L, BUN/Creatinine Ratio 35.3 H, Glucose 150 H, Lactic Acid 1.8, Calcium 10.3, Total Bilirubin 0.94, AST 28, ALT 8, Alkaline Phosphatase 86, Total Protein 7.8, Albumin 4.5, Globulin 3.3, Albumin/Globulin Ratio 1.4, Amylase 46, Lipase 32, Blood Type A POSITIVE, Antibody Screen NEGATIVE 04/23/25 23:00: Urine Color Yellow, Urine Clarity Clear, Urine pH 5.0, Ur Specific [place] 1.015, Urine Protein 30 H, Urine Glucose (UA) Normal, Urine Ketones 15 H, Urine Occult Blood 25 H, Urine Nitrite Negative, Urine Bilirubin Negative, Urine Urobilinogen Normal, Ur Leukocyte Esterase Negative, Urine RBC 0-5 SEEN, Urine WBC 0 SEEN, Ur Squamous Epith Cells 5-10 SEEN, Amorphous Sediment 2+, Urine Bacteria 3+, Urine Mucus 1+ Rhythm Strip Rhythm Strip: Sinus Rhythm Rate: 94 Ectopy: None Charges/Coding Multi Select Codes Visit Charges Office Visit/Consults: 75297 IP Consult L5 Hospitalists' Procedures Procedures: 51223 Advncd Care Plan 30 Min
[2025-04-24 01:26] LABS: BETA-HYDROXYBUTYRATE 2.5 mmol/L (0.0-0.3)
--- OUTSIDE RECORDS SUMMARY | 2025-04-24 01:40 | XMS RPT_ITS | CCD ---
Author Organization [facility] Care Team Providers Care Batchmaker Name Role Phone SCOOTER JUAREZ Admitting Unavailable SCOOTER JUAREZ Primary Care Unavailable SCOOTER JUAREZ Attending Unavailable TAM DOWNEY Consulting Unavailable PROVIDER, UNKNOWN Consulting Unavailable PROVIDER, UNKNOWN Consulting Unavailable PROVIDER, UNKNOWN Consulting Unavailable Jalyn Smith MD Primary Care Provider Brady Avila MD Unavailable Dr. Jalyn Smith Primary Care Provider Dr. Lavelle Ornelas Emergency Provider Dr. Kylee Rivera Admit Provider Dr. Kylee Rivera Attending Provider Dr. Kylee Rivera Other Provider Dr. Gustavo Justice Chi Admit Provider Dr. Gustavo Justice Chi Referring Provider Dr. Gustavo Justice Chi Other Provider Dr. Burke Velez Attending Provider Rachel VENTILATING EXPERT, VENTILATING EXPERT-C Ajay Attending Provider Rachel VENTILATING EXPERT, VENTILATING EXPERT-C Ajay Other Provider Dr. Jalyn Smith Primary Care Provider Jalyn Smith MD Primary Care Provider Brady Avila MD Unavailable October Darlene FLORES Unavailable Jalyn Smith MD Primary Care Provider October Darlene FLORES Unavailable Jalyn Smith MD Primary Care Provider Austin MISTRY, Brady Unavailable May RN, Darlene Islas Unavailable Tami RN, Seelne Unavailable Dr. Jalyn Smith Primary Care Provider Dr. Hector Fields Emergency Provider Leonardo, Dr. Turk Admit Provider Dr. Burke Patterson Attending Provider Dr. Burke Patterson Other Provider Yeison, Dr. Barbour Attending Provider Yeison, Dr. Barbour Other Provider Dr. Chris Deshpande Attending Provider Jeramy, Dr. Perez Other Provider Tami RN, Selene Unavailable Dr. Nehemiah Farooq Attending Provider Dr. Gustavo Justice Chi Referring Provider October RN, Darlene Islas Unavailable YANIV TODD Attending Unavailable JALYN SMITH Referring Unavailable JALYN SMITH Primary Care Unavailable Jalyn Smith MD Primary Care Provider Tami FLORES, Selene Unavailable Haagen FOREIGN FOOD COOK SPECIALTY.REFINERY OPERATOR HELPER, Marjan Unavailable Suppan FOREIGN FOOD COOK SPECIALTY.REFINERY OPERATOR HELPER, Casandra A Unavailable Suppan FOREIGN FOOD COOK SPECIALTY.REFINERY OPERATOR HELPER, Casandra A Unavailable Dr. Jalyn Smith MD Primary Care Provider Humberto MISTRY, Dr. Neely Attending Provider Dr. Chin Paul MD Referring Provider Dr. Viraj Dozier DO Emergency Provider Jalyn Smith Primary Care Unavailable Viraj Dozier Attending Unavailable Chin Paul Attending Unavailable Chin Paul Referring Unavailable Jalyn Smith Primary Care Unavailable JALYN SMITH Primary Care Unavailable YANIV TODD Referring Unavailable LUIS, JALYN Islas Primary Care Unavailable YANIV TODD Referring Unavailable LUIS, JALYN Islas Referring Unavailable LUIS, JALYN Islas Primary Care Unavailable LUIS, JALYN Islas Attending Unavailable LUIS, JALYN Islas Primary Care Unavailable ORAL PERDUE Attending Unavailable LUIS, JALYN Islas Primary Care Unavailable LUIS, JALYN Islas Referring Unavailable LUIS, JALYN Islas Primary Care Unavailable LUIS, JALYN Islas Attending Unavailable LUIS, JALYN Islas Primary Care Unavailable ULIS, JALYN Islas Referring Unavailable LUIS, JALYN Islas Primary Care Unavailable ZACKERY MAYFIELD Referring Unavailable LUIS, JALYN Islas Primary Care Unavailable Allergies Allergy Classification Reported Allergen(s) Allergy Type Date of Onset Reaction(s) Facility (20 sources) Lisinopril; Translations: [LISINOPRIL] Drug Allergy 7 Other: See Comments [facility] Work Phone: (20 sources) pregabalin; Translations: [PREGABALIN] Drug Allergy 9 Swelling [facility] Work Phone: (1 source) Lisinopril Drug Allergy 5 [facility] (1 source) pregabalin Drug Allergy 5 [facility] Medications Current Medications Medication Drug Class(es) Dates Sig (Normalized) Sig (Original) acetaminophen 500 mg oral tablet (20 sources) Start: 08-07-2021 take 2 tablets by mouth every six hours as needed for pain Acetaminophen 500 mg Tablet Active 1000 mg PO EVERY 6 HOURS NEEDED as needed for Pain Score 1-3 0 August 07, 2021 1:00am Start: 08-07-2021 take 1000 mg by mout h every six hours as needed Acetaminophen Active 1000 MG PO EVERY 6 HOURS NEEDED 0 August 07, 2021 1:00am Start: 08-27-2020 End: 03-20-2022 take 1 tablet by mouth every six hours as needed acetaminophen (TYLENOL EXTRA STRENGTH) 500 mg tablet Take 1 tablet by mouth every 6 hours as needed for Pain. 0 08/27/2020 03/20/2022 Discontinued Comment on above: Take 1 tablet by daniel th every 6 hours as needed for Pain. [id number] 200 actuat albuterol 0.09 mg/actuat metered dose inhaler (20 sources) beta2-Adrenergic Agonist Start: 10-22-2020 End: 01-11-2024 take 2 puff(s) by inhalation every four hours as needed for wheezing albuterol HFA (VENTOLIN HFA) 90 mcg/actuation inhaler Indications: Shortness of breath Inhale 2 Puffs as instructed every 4 hours as needed for wheezing/shortness of breath. 18 g 3 01/11/2024 Active Start: 10-14-2018 take 1 puff(s) by in halation every four hours Albuterol Sulfate Active 2 PUFF INHALATION Q4H October 14, 2018 3:06pm Start: 10-14-2018 take 1 puff(s) by in halation every four hours Albuterol Sulfate Active 2 PUFF INHALATION Q4H October 13, 2018 11:00pm Start: 10-14-2018 take 1 puff(s) by in halation every four hours Albuterol Sulfate Active 2 PUFF INHALATION Q4H October 14, 2018 12:00am Comment on above: Inhale 2 Puffs as in structed every 4 hours as needed for Wheezing/Shortness of Breath. Albuterol Sulfate 90 mcg/actuation HFA aerosol inhaler (2 sources) Start: 019 Albuterol Sulfate 90 mcg/actuation HFA aerosol inhaler Active 2 NMA INHALATION Q4H as needed for Sob &/Or Wheezing October 14, 2018 12:00am Arformoterol 15 mcg/2 mL solution for nebulization (2 sources) Start: 023 Arformoterol 15 mcg/2 mL solution for nebulization Active 15 ug INHALATION Q12H December 11, 2022 12:00am baclofen 10 mg oral tablet (20 sources) gamma-Aminobutyric Acid-ergic Agonist Start: 025 take 1 tablet by mouth three times daily baclofen 10 mg tablet Take 1 tablet by mouth three times a day. 270 tablet 1 10/03/2024 Active Start: 10-14-2018 End: 09-30-2024 take 1 tablet by mouth three times daily baclofen 10 mg tablet Take 1 tablet by mouth three times a day. 270 tablet 1 03/03/2024 09/30/2024 Discontinued Comment on above: Take 1 tablet by daniel th three times daily. 120 actuat budesonide 0.16 mg/actuat / formoterol fumarate 0.0048 mg/actuat / glycopyrrolate 0.009 mg/actuat metered dose inhaler (20 sources) Corticosteroid, beta2-Adrenergic Agonist Start: 09-04-2024 Vuxxuuzqrb-Dsrzoxna-Yhu moterol [Budesonide 160 Mcg-Glycopyr 9 Mcg-Formot 4.8 Mcg/Actuation Hfa Inhaler] (Budesonide 160 Mcg-Glycopyr 9 Mcg-Formot 4.8 ) 160-9-4.8 mcg/actuation HFA aerosol inhaler Active 2 NMA INHALATION TWICE A DAY September 04, 2024 12:00am Start: 05-17-2024 End: 11-29-2025 take 2 puff(s) by inhalation twice daily tdorukhepm-czgdirfy-iklolnupzd (BREZTRI AEROSPHERE) 160-9-4.8 mcg/actuation HFA aerosol inhaler Indications: COPD, severe (HCC) Inhale 2 puffs as instructed two times a day. 3 each 3 11/29/2024 11/29/2025 Active Start: 02-01-2024 End: 07-30-2024 take 2 puff(s) by inhalation twice daily vkxpkwkymn-fwhoeshq-yqbtdabhnx (BREZTRI) 160-9-4.8 mcg/actuation HFA aerosol inhaler Indications: COPD, severe (HCC) Inhale 2 Puffs as instructed two times a day. 10.7 g 5 02/01/2024 05/17/2024 Discontinued Start: 11-18-2023 End: 11-17-2024 take 2 puff(s) by inhalation twice daily oflbshregk-qavvzbyi-ajpfdzhuzm (BREZTRI) 160-9-4.8 mcg/actuation HFA aerosol inhaler Indications: COPD, severe (HCC) Inhale 2 Puffs as instructed two times a day. 32.1 g 3 11/18/2023 02/01/2024 Discontinued Start: 09-30-2023 End: 11-18-2023 take 2 puff(s) by inhalation twice daily mcecujocqj-sybvqqpg-dkimpgabln (BREZTRI) 160-9-4.8 mcg/actuation HFA aerosol inhaler Indications: COPD, severe (HCC) Inhale 2 Puffs as instructed two times a day. 1 Each 5 09/30/2023 11/18/2023 Discontinued 168 hr buprenorphine 0.0075 mg/hr transdermal system (15 sources) Partial Opioid Agonist Start: 09-04-2024 apply 7.5 ug transdermal route every week Buprenorphine 7.5 mcg/hour patch weekly Active 1 NMA TD EVERY WEEK September 04, 2024 12:00am cephalexin 500 mg oral capsule (20 sources) Cephalosporin Antibacterial Start: 01-02-2023 take 1 capsule by mouth every six hours Cephalexin 500 mg Capsule Active 500 mg PO EVERY 6 HOURS 02 01January 02, 2023 12:00am Start: 07-17-2022 End: 07-27-2022 take 1 capsule by mouth four times daily cephALEXin (KEFLEX) 500 mg capsule Indications: Venous stasis ulcer of right calf without varicose veins, unspecified ulcer stage (HCC) Take 1 capsule by mouth four times daily for 10 days. 40 capsule 0 07/17/2022 07/27/2022 Active Start: 08-30-2021 End: 12-12-2022 take 1 capsule by mouth every six hours Cephalexin 500 MG capsule Discontinued 500 mg PO EVERY 6 HOURS 40 August 30, 2021 12:00am December 12, 2022 8:04am On Hold: Ordered Comment on above: Take 1 capsule by mo [place] every 6 hours. Take 1 capsule by mo [place] four times daily for 10 days. COMPOUNDED PRESCRIPTION (20 sources) Start: 12-02-2017 COMPOUNDED PRESCRIPTION Indications: Hypoxia , Chronic obstructive pulmonary disease, unspecified COPD type (HCC) Oxygen via nasal canula 2 L N/C DX: copd and hypoxia 1 Each 12/02/2017 Active Start: 12-02-2017 COMPOUNDED PRE SCRIPTION Indications: Hypoxia , Chronic obstructive pulmonary disease, unspecified COPD type (HCC) Lightweight portable oxygen DX: copd, 2 L nc continuously 1 Each 12/02/2017 Active Start: 12-02-2017 COMPOUNDED PRE SCRIPTION Indications: Hypoxia , Chronic obstructive pulmonary disease, unspecified COPD type (HCC) Oxygen via nasal canula 2 L N/C DX: copd and hypoxia 1 Each 0 12/02/2017 Active Start: 12-02-2017 COMPOUNDED PRE SCRIPTION Indications: Hypoxia , Chronic obstructive pulmonary disease, unspecified COPD type (HCC) Lightweight portable oxygen DX: copd, 2 L nc continuously 1 Each 0 12/02/2017 Active Comment on above: Oxygen via nasal [place] 2 L N/C DX: copd and hypoxia Lightweight portable oxygen DX: copd, 2 L nc continuously doxycycline monohydrate 100 mg oral capsule (12 sources) Tetracycline-class Drug Start: 3 End: 3 take 1 capsule by mouth twice daily Doxycycline Monohydrate 100 mg Capsule Active 100 mg PO TWICE A DAY 14 January 02, 2023 12:00am Comment on above: Take by mouth. ferrous sulfate 325 mg oral tablet (20 sources) Start: 5 End: 6 take 1 tablet by mouth twice daily at mealtime ferrous sulfate 325 mg (65 mg iron) tablet Indications: Anemia, unspecified type Take 1 tablet by mouth two times a day with meals. 180 tablet 3 01/09/2025 01/09/2026 Active Start: 01-14-2023 End: 10-01-2024 take 1 tablet by mouth twice daily at mealtime ferrous sulfate 325 mg (65 mg iron) tablet Indications: Anemia, unspecified type Take 1 tablet by mouth two times a day with meals. 180 tablet 3 10/02/2023 10/01/2024 Active Comment on above: Take 1 tablet by daniel th twice daily with meals. fluticasone propionate 0.05 mg/actuat metered dose nasal spray (20 sources) Corticosteroid Start: 4 End: 5 take 1 spray(s) nasal route once daily fluticasone (FLONASE) 50 mcg/actuation nasal spray USE 1 SPRAY IN EACH NOSTRIL ONE TIME DAILY 32 g 3 01/31/2025 Active Start: 05-12-2022 take 1 spray(s) nasa l route once daily fluticasone (FLONASE) 50 mcg/actuation nasal spray USE 1 SPRAY IN EACH NOSTRIL ONCE DAILY. 32 g 5 05/12/2022 Active Start: 02-22-2021 End: 05-12-2022 take 1 spray(s) nasal route once daily fluticasone (FLONASE) 50 mcg/actuation nasal spray Use 1 [place] in each nostril once daily. 1 Each 5 02/22/2021 05/12/2022 Discontinued Comment on above: Use 1 [place] in each nostril once daily. USE 1 SPRAY IN EACH NOSTRIL ONCE DAILY gabapentin 100 mg oral capsule (20 sources) Anti-epileptic Agent Start: 2021 End: 2024 take 1 capsule by mouth three times daily gabapentin (NEURONTIN) 100 mg capsule Take 1 capsule by mouth three times a day for 180 days. 270 capsule 1 10/03/2024 04/01/2025 Active Comment on above: Take 1 capsule by mo uth three times daily for 180 days. Take 1 capsule by mo uth three times a day for 180 days. hydroCHLOROthiazide 12.5 mg oral capsule (20 sources) Thiazide Diuretic Start: 2024 take 1 capsule by mouth every twelve hours Hydrochlorothiazide 12.5 mg capsule Active 12.5 mg PO Q12H September 04, 2024 12:00am Start: 06-09-2024 End: 11-01-2024 take 2 capsules by mouth once daily hydroCHLOROthiazide 12.5 mg capsule Indications: DDD (degenerative disc disease), lumbar , Essential hypertension Take 2 capsules by mouth once daily. 180 capsule 1 11/01/2024 Active Start: 12-15-2022 End: 09-04-2024 take 1 tablet by mouth once daily Hydrochlorothiazide 25 mg Tablet Discontinued 25 mg PO DAILY 0 December 15, 2022 12:00am September 04, 2024 7:39am Start: 07-25-2021 End: 12-15-2022 take 25 mg by mouth once daily Hydrochlorothiazide Discontinued 25 MG PO DAILY July 25, 2021 1:00am December 15, 2022 12:28pm Start: 06-17-2021 End: 06-07-2024 take 2 capsules by mouth once daily Hydrochlorothiazide 12.5 mg capsule Discontinued 25 mg PO DAILY July 25, 2021 1:00am December 15, 2022 12:28pm Comment on above: Take 2 capsules by m outh once daily. levoFLOXacin 500 mg oral tablet (3 sources) Quinolone Antimicrobial Start: 08-28-19 take 1 tablet by mouth once daily Levofloxacin 500 mg tablet Active 500 mg PO DAILY August 28, 2023 12:00am magnesium oxide 500 mg oral tablet (20 sources) Start: 06-09-19 End: 06-09-19 take 1 tablet by mouth once daily Magnesium Oxide 500 mg magnesium tab Indications: Hypomagnesemia Take 1 tablet by mouth once daily. 90 tablet 3 06/09/2024 06/09/2025 Active Start: 03-11-2024 End: 06-07-2024 take 1 tablet by mouth once daily Magnesium Oxide 500 mg magnesium tab Indications: Hypomagnesemia Take 1 tablet by mouth once daily. 03/11/2024 06/07/2024 Discontinued metFORMIN hydrochloride 500 mg oral tablet (20 sources) Biguanide Start: 10-14-2018 End: 09-20-2024 take 1 tablet by mouth once daily at breakfast metFORMIN (GLUCOPHAGE) 500 mg tablet Indications: Type 2 diabetes mellitus without complication, without long-term current use of insulin (HCC) Take 1 tablet by mouth daily with breakfast. 90 tablet 3 09/21/2024 Active Comment on above: Take 1 tablet by daniel th daily with breakfast. 24 hr metoprolol succinate 50 mg extended release oral tablet (20 sources) beta-Adrenergic Trace Start: 12-11-2022 End: 12-15-2022 take 1 tablet by mouth every twenty-four hours Metoprolol Succinate 50 mg tablet extended release 24 hr Discontinued mg PO December 11, 2022 12:00am December 15, 2022 12:31pm Start: 12-11-2022 End: 12-15-2022 Metoprolol Succinate Discont inued MG PO December 11, 2022 12:00am December 15, 2022 12:31pm Start: 07-25-2021 End: 12-12-2022 take 1 tablet by mouth once daily Metoprolol Tartrate 50 mg Tablet Discontinued 50 mg PO DAILY July 25, 2021 1:00am December 12, 2022 8:06am Start: 06-17-2021 End: 08-03-2024 take 1 tablet by mouth once daily metoprolol succinate ER (TOPROL XL) 50 mg 24 hr tablet Take 1 tablet by mouth once daily. Hold if HR is less than 50 or systolic BP is less than 100 30 tablet 5 08/03/2024 Active Comment on above: Take 3 tablets by mo uth once daily. Take 50 mg by mouth once daily. Hold if HR is less than 50 or systolic BP is less than 100 [facility] Hold if HR is less than 50 or systolic BP is less than 100 nitrofurantoin, macrocrystals 25 mg / nitrofurantoin, monohydrate 75 mg oral capsule (4 sources) Nitrofuran Antibacterial Start: End: take 1 capsule by mouth twice daily at mealtime nitrofurantoin monohydrate and macrocrystal (MACROBID) 100 mg capsule Indications: Urinary tract infection without hematuria, site unspecified Take 1 capsule by mouth two times a day with meals for 5 days. 10 capsule 09/07/2024 09/12/2024 Active Start: 12-05-2022 End: 12-12-2022 take 1 capsule by mouth twice daily at mealtime nitrofurantoin monohydrate and macrocrystal (MACROBID) 100 mg capsule Indications: Dysuria Take 1 capsule by mouth twice daily with meals for 7 days. 14 capsule 0 12/05/2022 12/12/2022 Active Comment on above: Take 1 capsule by [facility] twice daily with meals for 7 days. 24 hr oxybutynin chloride 5 mg extended release oral tablet (20 sources) Cholinergic Muscarinic Antagonist Start: 02-29-2024 End: 08-03-2024 take 1 tablet by mouth once daily oxybutynin XL (DITROPAN XL) 5 mg 24 hr tablet Take 1 tablet by mouth once daily. 90 tablet 1 08/03/2024 Active Start: 04-08-2023 End: 02-27-2024 take 1 tablet by mouth once daily oxybutynin XL (DITROPAN XL) 5 mg 24 hr tablet Take 1 tablet by mouth once daily. 90 tablet 1 09/14/2023 Active Start: 07-25-2021 End: 09-04-2024 take 1 tablet by mouth once daily Oxybutynin Chloride 5 mg Tablet Discontinued 5 mg PO DAILY July 25, 2021 1:00am September 04, 2024 7:39am Start: 05-13-2021 End: 07-21-2022 take 1 tablet by mouth once daily oxybutynin XL (DITROPAN XL) 5 mg 24 hr tablet Take 1 tablet by mouth once daily. 90 tablet 1 02/26/2022 06/26/2022 Discontinued Comment on above: Take 1 tablet by daniel once daily. Oxygen (17 sources) Start: 10-27-2018 Oxygen Active October 27, 2018 1:35pm As directed Start: 10-27-2018 Oxygen Active October 26, 2018 11:00pm As directed Start: 10-27-2018 Oxygen Active October 27, 2018 12:00am As directed Oxygen 3 liters NC (2 sources) Start: 10-27-2018 Oxygen 3 liter s NC Active October 27, 2018 12:00am As directed perflutren lipid microspheres 1.3 mL in NaCl (PF) 0.9% 10 mL injection (DEFINITY) (20 sources) Start: 01-11-2021 End: 04-12-2022 perflutren lipid microspheres 1.3 mL in NaCl (PF) 0.9% 10 mL injection (DEFINITY) rOPINIRole 2 mg oral tablet (20 sources) Nonergot Dopamine Agonist Start: 10-05-2024 End: 04-16-2025 take 1 tablet by mouth once daily at bedtime rOPINIRole (REQUIP) 2 mg tablet Indications: Restless leg Take 1 tablet by mouth daily at bedtime. 90 tablet 1 10/18/2024 04/16/2025 Active Start: 10-14-2018 End: 01-30-2025 take 3 tablets by mouth once daily at bedtime rOPINIRole (REQUIP) 0.5 mg tablet Indications: Restless leg Take 3 tablets by mouth daily at bedtime. 270 tablet 1 08/03/2024 10/05/2024 Discontinued Start: 10-14-2018 take 1.5 mg by mouth at bedtim e Ropinirole Active 1.5 MG PO AT BEDTIME October 14, 2018 12:00am Comment on above: Take 3 tablets by mo [facility] daily at bedtime. sertraline 50 mg oral tablet (20 sources) Serotonin Reuptake Inhibitor Start: 06-09-2024 End: 11-01-2024 sertraline (ZOLOFT) 50 mg tablet Take 1 tab once a day. 90 tablet 1 11/01/2024 Active Start: 05-27-2021 End: 06-07-2024 take 1 tablet by mouth once daily Sertraline 50 mg Tablet Active 50 mg PO DAILY July 25, 2021 1:00am Comment on above: Take 1 tab once a da y. 125 ml sodium chloride 9 mg/ml prefilled syringe (20 sources) Start: 01-11-2021 End: 04-12-2022 sodium chloride 0.9 % (flush) 10 mL (BD POSIFLUSH) traMADol hydrochloride 50 mg oral tablet (20 sources) Opioid Agonist Start: 09-04-2024 take 1 tablet by mouth twice daily as needed for pain Tramadol 50 mg tablet Active 50 mg PO TWICE DAILY NEEDED as needed for pain September 04, 2024 12:00am Completed/Discontinued Medications Medication Drug Class(es) Dates Sig (Normalized) Sig (Original) albuterol 0.833 mg/ml / ipratropium bromide 0.167 mg/ml inhalation solution (20 sources) Anticholinergic, beta2-Adrenergic Agonist Start: 10-22-2020 End: 01-12-2023 take 3 mL by inhalation every four hours as needed for chronic obstructive pulmonary disease and chronic obstructive pulmonary disease ipratropium-albuter ol (DUONEB) 0.5 mg-3 mg(2.5 mg base)/3 mL nebu Indications: Chronic obstructive pulmonary disease, unspecified COPD type (HCC) Inhale 3 mL as instructed every 4 hours as needed (Shortness of breath and wheezing). 360 Vial 1 10/22/2020 01/12/2023 Discontinued Start: 12-22-2018 Ipratropium-Al buterol 0.5-3MG/3 solution for nebulization Active 1 NMA INHALATION 4 TIMES DAILY December 22, 2018 12:00am Start: 12-22-2018 take 1 dose by inhal ation four times daily Ipratropium-Albuterol Active 1 DOSE INHALATION 4 TIMES DAILY December 22, 2018 12:00am Start: 10-14-2018 End: 11-24-2018 take 1 mL by inhalation every six hours as needed Ipratropium-Albuterol 0.5 mg-3 mg(2.5 mg base)/3 mL solution for nebulization Discontinued 3 mL INHALATION EVERY 6 HOURS as needed October 14, 2018 12:00am November 24, 2018 1:10pm Start: 10-14-2018 End: 11-24-2018 take 1 mL by inhalation every six hours Ipratropium-Albuterol Discontinued 3 ML INHALATION EVERY 6 HOURS October 14, 2018 12:00am November 24, 2018 1:10pm Comment on above: Inhale 3 mL as instr ucted every 4 hours as needed (Shortness of breath and wheezing). arformoterol 0.0075 mg/ml inhalation solution (20 sources) beta2-Adrenergic Agonist Start: 12-12-19 take 15 ug by inhalation every twelve hours Arformoterol Active 15 MCG INHALATION Q12H December 11, 2022 12:00am Start: 06-20-2022 End: 09-30-2023 arformoterol (BROVANA) 15 mc g/2 mL nebulizer solution Indications: Stage 3 severe COPD by GOLD classification (HCC) Inhale 2 mL as instructed every 12 hours. May mix with Budesonide neb twice a day. 360 mL 2 03/12/2023 09/30/2023 Discontinued Comment on above: Inhale 2 mL as instr ucted every 12 hours. May mix with Budesonide neb twice a day. budesonide 0.25 mg/ml inhalation suspension (20 sources) Corticosteroid Start: 05-26-2023 End: 09-30-2023 budesonide (PULMICORT) 0.5 mg/2 mL nebulizer solution Indications: Chronic obstructive pulmonary disease, unspecified COPD type (HCC) Use 2 mL via nebulizer two times a day. 360 mL 3 05/26/2023 09/30/2023 Discontinued Start: 01-19-2023 End: 05-18-2023 budesonide (PULMICORT) 0.5 m g/2 mL nebulizer solution Indications: Chronic obstructive pulmonary disease, unspecified COPD type (HCC) Use 2 mL via nebulizer two times a day. 360 mL 3 05/18/2023 Active Start: 12-22-2018 End: 01-12-2023 Budesonide 0.5 MG/2ML suspen mallory for nebulization Discontinued 1 NMA INHALATION TWICE A DAY December 22, 2018 12:00am December 12, 2022 8:04am Start: 12-22-2018 End: 12-12-2022 take 1 dose by inhalation twice daily Budesonide Discontinued 1 DOSE INHALATION TWICE A DAY December 22, 2018 12:00am December 12, 2022 8:04am Start: 10-27-2018 End: 11-24-2018 take 0.5 mg by inhalation twice daily Budesonide 0.5 mg/2 mL suspension for nebulization Discontinued 0.5 mg INHALATION TWICE A DAY 120 October 27, 2018 12:00am November 24, 2018 1:09pm Comment on above: Use 2 mL via nebuliz er twice daily. Use 2 mL via nebuliz er two times a day. docusate sodium 50 mg / sennosides, detention 8.6 mg oral tablet (19 sources) Start: 08-08-19 End: 12-13-19 23 Sennosides-Docusate Sodium (Stool Softener-Stimulant Laxat) 8.6-50 mg Tablet Discontinued 1 {tbl} PO TWICE A DAY 60 August 07, 2021 1:00am December 12, 2022 8:05am On Hold: Ordered furosemide 20 mg oral tablet (19 sources) Loop Diuretic Start: 01-09-20 15 End: 10-15-19 19 take 1 tablet by mouth once daily Furosemide 20 MG tablet Discontinued 20 mg PO DAILY January 08, 2015 12:00am October 14, 2018 3:02pm 12 hr guaiFENesin 600 mg extended release oral tablet (20 sources) Start: 08-28-19 21 End: 03-20-20 22 take 2 tablets by mouth twice daily guaiFENesin (MUCINEX) 600 mg 12 hr tablet Take 2 tablets by mouth twice daily. 0 08/27/2020 03/20/2022 Discontinued Comment on above: Take 2 tablets by [facility] twice daily. iv contrast (will be provided with radiology test) (20 sources) Start: 11-05-19 End: 03-09-20 24 inject 1 dose intravenously once iv contrast (will be provided with radiology test) CTA CHST/ABD/PEL. No IV access, insert saline lock prior to the sedation, infusion, injection for imaging exam. Discontinue saline lock post exam. If Pt. has a central line or IVAD, may access for administration according to line specific nursing protocol. Once exam is complete flush line and de-access according to line specific nursing protocol in the CT contrast administration guidelines link. 1 Each 11/05/2023 03/09/2024 Discontinued Start: 11-05-2023 inject 1 dose intravenously on ce iv contrast (will be provided with radiology test) CTA CHST/ABD/PEL. No IV access, insert saline lock prior to the sedation, infusion, injection for imaging exam. Discontinue saline lock post exam. If Pt. has a central line or IVAD, may access for administration according to line specific nursing protocol. Once exam is complete flush line and de-access according to line specific nursing protocol in the CT contrast administration guidelines link. 1 Each 11/05/2023 Active Start: 11-05-2023 inject 1 dose intravenously on ce iv contrast (will be provided with radiology test) CTA CHST/ABD/PEL. No IV access, insert saline lock prior to the sedation, infusion, injection for imaging exam. Discontinue saline lock post exam. If Pt. has a central line or IVAD, may access for administration according to line specific nursing protocol. Once exam is complete flush line and de-access according to line specific nursing protocol in the CT contrast administration guidelines link. 1 Each 0 11/05/2023 Active Start: 09-21-2023 End: 09-22-2023 inject 1 dose intravenously once iv contrast (will be provided with radiology test) CTA ABD/PEL - No IV access, insert saline lock prior to the sedation, infusion, injection for imaging exam. Discontinue saline lock post exam. If Pt. has a central line or IVAD, may access for administration according to line specific nursing protocol. Once exam is complete flush line and de-access according to line specific nursing protocol in the CT contrast administration guidelines link. 1 Each 0 09/21/2023 09/22/2023 Start: 09-21-2023 End: 09-22-2023 inject 1 dose intravenously once iv contrast (will be provided with radiology test) CTA ABD/PEL - No IV access, insert saline lock prior to the sedation, infusion, injection for imaging exam. Discontinue saline lock post exam. If Pt. has a central line or IVAD, may access for administration according to line specific nursing protocol. Once exam is complete flush line and de-access according to line specific nursing protocol in the CT contrast administration guidelines link. 1 Each 0 09/21/2023 09/22/2023 Active Start: 03-20-2022 End: 03-21-2022 inject 1 dose intravenously once iv contrast (will be provided with radiology test) Indications: Dissection of descending thoracic aorta , Aortic dissection, abdominal (HCC) CTA ABD/PEL - No IV access, insert saline lock prior to the sedation, infusion, injection for imaging exam. Discontinue saline lock post exam. If Pt. has a central line or IVAD, may access for administration according to line specific nursing protocol. Once exam is complete flush line and de-access according to line specific nursing protocol in the CT contrast administration guidelines link. 1 Each 0 03/20/2022 03/21/2022 Active Start: 03-20-2022 End: 03-21-2022 inject 1 dose intravenously once iv contrast (will be provided with radiology test) Indications: Dissection of descending thoracic aorta , Aortic dissection, abdominal (HCC) CTA CHEST - No IV access, insert saline lock prior to the sedation, infusion, injection for imaging exam. Discontinue saline lock post exam. If Pt. has a central line or IVAD, may access for administration according to line specific nursing protocol. Once exam is complete flush line and de-access according to line specific nursing protocol in the CT contrast administration guidelines link. 1 Each 0 03/20/2022 03/21/2022 Active Comment on above: CTA ABD/PEL - No IV access, insert saline lock prior to the sedation, infusion, injection for imaging exam. Discontinue saline lock post exam. If Pt. has a central line or IVAD, may access for administration according to line specific nursing protocol. Once exam is complete flush line and de-access according to line specific nursing protocol in the CT contrast administration guidelines link. CTA CHEST - No IV ac cess, insert saline lock prior to the sedation, infusion, injection for imaging exam. Discontinue saline lock post exam. If Pt. has a central line or IVAD, may access for administration according to line specific nursing protocol. Once exam is complete flush line and de-access according to line specific nursing protocol in the CT contrast administration guidelines link. meloxicam 15 mg oral tablet (20 sources) Nonsteroidal Anti-inflammatory Drug Start: 09-11-19 End: 12-11-19 23 take 1 tablet by mouth once daily at mealtime meloxicam (MOBIC) 15 mg tablet Take 1 tablet by mouth once daily. With food. 90 tablet 3 12/20/2021 07/21/2022 Discontinued Start: 10-14-2018 End: 12-12-2022 take 1 tablet by mouth once daily Meloxicam 7.5 mg tablet Discontinued 7.5 mg PO DAILY October 14, 2018 12:00am December 12, 2022 8:04am Comment on above: Take 1 tablet by daniel th once daily. With food. multivitamin tablet (20 sources) Start: 08-27-2020 End: 03-20-2022 take 1 tablet by mouth once daily multivitamin tablet Take 1 tablet by mouth once daily. 0 08/27/2020 03/20/2022 Discontinued Start: 08-27-2020 take 1 tablet by danile th once daily multivitamin tablet Take 1 tablet by mouth once daily. 0 08/27/2020 Active Comment on above: Take 1 tablet by daniel th once daily. mupirocin 0.02 mg/mg topical ointment (20 sources) RNA Synthetase Inhibitor Antibacterial Start: 09-19-19 End: 03-20-20 mupirocin (BACTROBAN) 2 % ointment Apply to affected area three times daily. 30 g 1 09/18/2021 03/20/2022 Discontinued Comment on above: Apply to affected ar ea three times daily. oxyCODONE hydrochloride 5 mg oral tablet (20 sources) Opioid Agonist Start: 08-08-19 End: 12-13-19 take 1 tablet by mouth every four hours as needed for pain Oxycodone 5 mg Tablet Discontinued 5 mg PO EVERY 4 HOURS NEEDED as needed for Pain Score 6-10 42 7 August 07, 2021 December 12, 2022 8:04am End: 03-20-2022 take 1 capsule by mouth every four hours as needed oxyCODONE ir (OXYIR) 5 mg capsule Take 5 mg by mouth every 4 hours as needed for pain. 0 03/20/2022 Discontinued Comment on above: Take 5 mg by mouth e very 4 hours as needed for pain. SENNOSIDES-DOCUSAT E SODIUM ORAL (20 sources) End: 03-20-2022 take 50 mg by mouth twice daily SENNOSIDES-DOCUSATE SODIUM ORAL Take 50 mg by mouth twice daily. 0 03/20/2022 Discontinued take 50 mg by mouth twice daily SENNOSIDES-DOCUSATE SODIUM ORAL Take 50 mg by mouth twice daily. 0 Active Comment on above: Take 50 mg by mouth twice daily. Problems Active Problems Problem Classification Problem Date Documented Da te Episodic/Chronic Abdominal pain (3 sources) Abdominal pain; Translations: [Unspecified abdominal pain] Onset: 5 09-04-2024 Episodic Acute and unspecified renal failure (19 sources) Injury of kidney; Translations: [Acute kidney failure, unspecified] 12-10-2022 Episodic Aortic; peripheral; and visceral artery aneurysms (20 sources) Aneurysm of thoracic aorta; Translations: [Thoracic aortic aneurysm, without rupture] Onset: 9 Resolved: 4 12-23-2018 Chronic Chronic kidney disease (1 source) Chronic kidney disease stage 3; Translations: [Stage 3 chronic kidney disease, unspecified whether stage 3a or 3b CKD (HCC)] 03-09-2024 Chronic Chronic obstructive pulmonary disease and bronchiectasis (20 sources) Pulmonary emphysema; Translations: [Emphysema, unspecified] Onset: 1 Resolved: 1 06-25-2020 Chronic Congestive heart failure; nonhypertensive (20 sources) Acute on chronic diastolic heart failure; Translations: [Acute on chronic diastolic (congestive) heart failure] Onset: 3 Chronic Deficiency and other anemia (16 sources) Anemia; Translations: [Anemia, unspecified] 12-10-2022 Episodic Diabetes mellitus without complication (20 sources) Type 2 diabetes mellitus without complication; Translations: [Type 2 diabetes mellitus without complications] Onset: 8 05-13-2018 Chronic E Codes: Fall (15 sources) Fall; Translations: [Unspecified fall, initial encounter] 12-10-2022 Episodic Esophageal disorders (20 sources) Gastroesophageal reflux disease; Translations: [Gastro-esophageal reflux disease without esophagitis] Chronic Essential hypertension (20 sources) Essential hypertension; Translations: [Essential (primary) hypertension] Onset: 7 Resolved: 7 07-25-2016 Chronic Gastrointestinal hemorrhage (13 sources) Melena; Translations: [Melena] Episodic Genitourinary symptoms and ill-defined conditions (4 sources) Dysuria; Translations: [Dysuria] Episodic Immunizations and screening for infectious disease (5 sources) Needs influenza immunization; Translations: [Encounter for immunization] Onset: 5 Episodic Malaise and fatigue (20 sources) Asthenia; Translations: [Other malaise] Episodic Mood disorders (20 sources) Recurrent major depression in partial remission; Translations: [Major depressive disorder, recurrent, in partial remission] Onset: 7 07-16-2016 Chronic Nonspecific chest pain (19 sources) Chest pain; Translations: [Chest pain, unspecified] 10-27-2018 Episodic Open wounds of extremities (20 sources) Puncture wound of calf; Translations: [Puncture wound without foreign body, left lower leg, initial encounter] Episodic Osteoarthritis (20 sources) Osteoarthritis; Translations: [Unspecified osteoarthritis, unspecified site] Chronic Other connective tissue disease (19 sources) Spasm; Translations: [Other muscle spasm] 08-17-2021 Episodic Other connective tissue disease (2 sources) Other muscle spasm; Translations: [Spasm of muscle] Episodic Other diseases of bladder and urethra (7 sources) Overactive bladder; Translations: [Overactive bladder] 12-15-2022 Chronic Other diseases of bladder and urethra (4 sources) Overactive bladder; Translations: [Hypertonicity of bladder] 01-02-2023 Chronic Other diseases of kidney and ureters (2 sources) Renal impairment; Translations: [Disorder of kidney and ureter, unspecified] Episodic Other diseases of veins and lymphatics (1 source) Skin ulcer of calf ; Translations: [Venous insufficiency (chronic) (peripheral)] Episodic Other gastrointestinal disorders (1 source) Diarrhea; Translations: [Diarrhea, unspecified] 01-12-2023 Episodic Other gastrointestinal disorders (2 sources) History of rectal bleeding; Translations: [Personal history of other diseases of the digestive system] 03-11-2024 Episodic Other gastrointestinal disorders (1 source) Acute constipation; Translations: [Constipation, unspecified] 09-07-2024 Episodic Other hereditary and degenerative nervous system conditions (20 sources) Restless legs; Translations: [Restless legs syndrome] 07-25-2021 Chronic Other hereditary and degenerative nervous system conditions (13 sources) Restless legs syndrome; Translations: [Restless legs syndrome (RLS)] Chronic Other lower respiratory disease (20 sources) Dyspnea; Translations: [Shortness of breath] 10-14-2018 Episodic Other lower respiratory disease (2 sources) Hypoxemia; Translations: [Hypoxemia] 09-10-2023 Episodic Other nutritional; endocrine; and metabolic disorders (1 source) Obesity caused by energy imbalance; Translations: [Other obesity due to excess calories] 01-19-2023 Chronic Other nutritional; endocrine; and metabolic disorders (2 sources) Hypomagnesemia; Translations: [Hypomagnesemia] 03-11-2024 Chronic Other nutritional; endocrine; and metabolic disorders (1 source) Hypomagnesemia; Translations: [Hypomagnesemia] Onset: 4 Chronic Other screening for suspected conditions (not mental disorders or infectious disease) (1 source) Radiologic infiltrate; Translations: [Abnormal findings on diagnostic imaging of other specified body structures] 09-09-2023 Chronic Other screening for suspected conditions (not mental disorders or infectious disease) (3 sources) Patient encounter status; Translations: [Encounter for screening for malignant neoplasm of colon] Episodic Pneumonia (except that caused by tuberculosis or sexually transmitted disease) (6 sources) Pneumonia; Translations: [Pneumonia, unspecified organism] 08-28-2023 Episodic Residual codes; unclassified (20 sources) Obstructive sleep apnea syndrome; Translations: [Obstructive sleep apnea (adult) (pediatric)] Onset: 9 05-24-2019 Chronic Residual codes; unclassified (1 source) Obstructive sleep apnea (adult) (pediatric); Translations: [MICHEL (obstructive sleep apnea)] Onset: 9 Chronic Residual codes; unclassified (1 source) Tobacco user; Translations: [Tobacco use] Episodic Respiratory failure; insufficiency; arrest (adult) (20 sources) Dependence on supplemental oxygen; Translations: [Dependence on supplemental oxygen] Onset: 8 12-30-2018 Chronic Screening and history of mental health and substance abuse codes (6 sources) Ex-smoker; Translations: [Personal history of nicotine dependence] Onset: 5 01-19-2023 Episodic Spondylosis; intervertebral disc disorders; other back problems (20 sources) Degeneration of lumbar intervertebral disc; Translations: [Other intervertebral disc degeneration, lumbar region] Onset: 3 06-19-2016 Chronic Substance-related disorders (1 source) Opioid dependence, uncomplicated; Translations: [Opioid dependence, uncomplicated] Onset: 5 Chronic Unclassified (1 source) Thoracic aortic aneurysm without rupture, unspecified part (HCC); Translations: [Thoracic aortic aneurysm without rupture, unspecified part (HCC)] Onset: 9 Unclassified (1 source) Abdominal aortic aneurysm (AAA) without rupture, unspecified part (HCC); Translations: [Abdominal aortic aneurysm (AAA) without rupture, unspecified part (HCC)] Onset: 4 Unclassified (2 sources) Thoracic aortic aneurysm without rupture, unspecified part; Translations: [Thoracic aortic aneurysm without rupture, unspecified part] Onset: 9 Unclassified (1 source) 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); Translations: [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)] Onset: 5 Unclassified (1 source) Abdominal aortic aneurysm (AAA) without rupture, unspecified part; Translations: [Abdominal aortic aneurysm (AAA) without rupture, unspecified part] Onset: 4 Unclassified (1 source) Degeneration of intervertebral disc of lumbar region, unspecified whether pain present; Translations: [Degeneration of intervertebral disc of lumbar region, unspecified whether pain present] Onset: 7 Urinary tract infections (12 sources) Urinary tract infectious disease; Translations: [Urinary tract infection, site not specified] 12-15-2022 Episodic Varicose veins of lower extremity (20 sources) Venous stasis ulcer with edema of left lower leg; Translations: [Varicose veins of left lower extremity with ulcer of unspecified site] Episodic Past or Other Problems Problem Classification Problem Date Documented Da te Episodic/Chronic Chronic ulcer of skin (20 sources) Ulcer of lower extremity; Translations: [Non-pressure chronic ulcer of unspecified part of left lower leg with fat layer exposed] Onset: 02-09-2019 Resolved: 08-16-2020 07-25-2022 Chronic Deficiency and other anemia (8 sources) Anemia, unspecified; Translations: [Anemia, unspecified] Onset: 04-13-2024 12-10-2022 Episodic Diabetes mellitus with complications (20 sources) Polyneuropathy due to diabetes mellitus; Translations: [Type 2 diabetes mellitus with diabetic polyneuropathy] Onset: 11-06-2023 Resolved: 03-09-2024 12-15-2022 Chronic Other gastrointestinal disorders (2 sources) Personal history of other diseases of the digestive system; Translations: [History of rectal bleeding] Onset: 04-13-2024 Episodic Other nutritional; endocrine; and metabolic disorders (20 sources) Obesity; Translations: [Obesity, unspecified] Onset: 06-17-2017 Resolved: 03-09-2024 06-25-2020 Chronic Other nutritional; endocrine; and metabolic disorders (20 sources) Body mass index 40+ - severely obese; Translations: [Morbid (severe) obesity due to excess calories] Onset: 08-17-2021 Resolved: 10-01-2022 08-17-2021 Chronic Other nutritional; endocrine; and metabolic disorders (20 sources) Obese class II; Translations: [Obesity, unspecified] Onset: 12-02-2017 Resolved: 04-02-2018 07-24-2023 Chronic Spondylosis; intervertebral disc disorders; other back problems (20 sources) Backache; Translations: [Dorsalgia, unspecified] Onset: 03-14-2013 Resolved: 08-20-2016 08-20-2016 Episodic Results Test Name Value Interpretation Reference Range Facility CBC W Auto Differential pane l (Bld)on 03-22-2025 Basophils (Bld) [#/Vol] 0.04 10*3/uL Normal <0.11 [facility] Comment on above: Order Comment: Rg burgos Type: BLOOD SPECIMEN Ordering Facility: [facility] Address: [address] [place] [address] Performed By: #### 5 7021-8 #### [facility] CLIA [id number] [address] [place] [address] [place] Basophils/100 WBC (Bld) 0.7 % Normal C [facility] Comment on above: Order Comment: Rg burgos Type: BLOOD SPECIMEN Ordering Facility: [facility] Address: [address] [place] [address] Performed By: #### 5 7021-8 #### [facility] CLIA [id number] [address] [place] [address] [place] Differential cell count method Nom (Bld) Auto Normal [facility] Comment on above: Order Comment: Rg burgos Type: BLOOD SPECIMEN Ordering Facility: [facility] Address: [address] [place] [address] Performed By: #### 5 7021-8 #### [facility] CLIA [id number] [address] [place] [address] [place] Eosinophils (Bld) [#/Vol] 0.11 10*3/uL Normal <0.46 [facility] Comment on above: Order Comment: Speci men Type: BLOOD SPECIMEN Ordering Facility: [facility] Address: [address] [place] [address] Performed By: #### 5 7021-8 #### [facility] CLIA [id number] [address] [place] [address] [place] Eosinophils/100 WBC (Bld) 1.9 % Normal [facility] Comment on above: Order Comment: Speci men Type: BLOOD SPECIMEN Ordering Facility: [facility] Address: [address] [place] [address] Performed By: #### 5 7021-8 #### [facility] CLIA [id number] [address] [place] [address] [place] Erythrocyte distribution width (RBC) [Ratio] 13.0 % Normal 11.5-15.0 [facility] Comment on above: Order Comment: Speci men Type: BLOOD SPECIMEN Ordering Facility: [facility] Address: [address] [place] [address] Performed By: #### 5 7021-8 #### [facility] CLIA [id number] [address] [place] [address] [place] Hematocrit (Bld) [Volume fraction] 33.9 % Low 36.0-46.0 [facility] Comment on above: Order Comment: Speci men Type: BLOOD SPECIMEN Ordering Facility: [facility] Address: [address] [place] [address] Performed By: #### 5 7021-8 #### [facility] CLIA [id number] [address] [place] [address] [place] Hemoglobin (Bld) [Mass/Vol] 10.9 g/dL Low 11.5-15.5 [facility] Comment on above: Order Comment: Speci men Type: BLOOD SPECIMEN Ordering Facility: [facility] Address: [address] [place] [address] Performed By: #### 5 7021-8 #### [facility] CLIA [id number] [address] [place] [address] [place] Immature granulocytes (Bld) [#/Vol] 0.03 10*3/uL Normal <0.10 [facility] Comment on above: Order Comment: Speci men Type: BLOOD SPECIMEN Ordering Facility: [facility] Address: [address] [place] [address] Performed By: #### 5 7021-8 #### [facility] CLIA [id number] [address] [place] [address] [place] Immature granulocytes/100 WBC (Bld) 0.5 % Normal [facility] Comment on above: Order Comment: Speci men Type: BLOOD SPECIMEN Ordering Facility: [facility] Address: [address] [place] [address] Performed By: #### 5 7021-8 #### [facility] CLIA [id number] [address] [place] [address] [place] Lymphocytes (Bld) [#/Vol] 0.90 10*3/uL Low 1.00-4.00 [facility] Comment on above: Order Comment: Speci men Type: BLOOD SPECIMEN Ordering Facility: [facility] Address: [address] [place] [address] Performed By: #### 5 7021-8 #### [facility] CLIA [id number] [address] [place] [address] [place] Lymphocytes/100 WBC (Bld) 15.2 % Normal [facility] Comment on above: Order Comment: Speci men Type: BLOOD SPECIMEN Ordering Facility: [facility] Address: [address] [place] [address] Performed By: #### 5 7021-8 #### [facility] CLIA [id number] [address] [place] [address] [place] MCH (RBC) [Entitic mass] 30.9 pg Normal 26.0-34.0 [facility] Comment on above: Order Comment: Speci men Type: BLOOD SPECIMEN Ordering Facility: [facility] Address: [address] [place] [address] Performed By: #### 5 7021-8 #### [facility] CLIA [id number] [address] [place] [address] [place] MCHC (RBC) [Mass/Vol] 32.2 g/dL Normal 30.5-36.0 [facility] Comment on above: Order Comment: Speci men Type: BLOOD SPECIMEN Ordering Facility: [facility] Address: [address] [place] [address] Performed By: #### 5 7021-8 #### [facility] CLIA [id number] [address] [place] [address] [place] MCV (RBC) [Entitic vol] 96.0 fL Normal 80.0-100.0 C [facility] Comment on above: Order Comment: Speci men Type: BLOOD SPECIMEN Ordering Facility: [facility] Address: [address] [place] [address] Performed By: #### 5 7021-8 #### [facility] CLIA [id number] [address] [place] [address] [place] Monocytes (Bld) [#/Vol] 0.67 10*3/uL Normal <0.87 [facility] Comment on above: Order Comment: Speci men Type: BLOOD SPECIMEN Ordering Facility: [facility] Address: [address] [place] [address] Performed By: #### 5 7021-8 #### [facility] CLIA [id number] [address] [place] [address] [place] Monocytes/100 WBC (Bld) 11.3 % Normal C [facility] Comment on above: Order Comment: Speci men Type: BLOOD SPECIMEN Ordering Facility: [facility] Address: [address] [place] [address] Performed By: #### 5 7021-8 #### [facility] CLIA [id number] [address] [place] [address] [place] Neutrophils (Bld) [#/Vol] 4.17 10*3/uL Normal 1.45-7.50 [facility] Comment on above: Order Comment: Speci men Type: BLOOD SPECIMEN Ordering Facility: [facility] Address: [address] [place] [address] Performed By: #### 5 7021-8 #### [facility] CLIA [id number] [address] [place] [address] [place] Neutrophils/100 WBC (Bld) 70.4 % Normal [facility] Comment on above: Order Comment: Speci men Type: BLOOD SPECIMEN Ordering Facility: [facility] Address: [address] [place] [address] Performed By: #### 5 7021-8 #### [facility] CLIA [id number] [address] [place] [address] [place] Nucleated RBC (Bld) [#/Vol] 10*3/uL Normal <0.01 [facility] Comment on above: Order Comment: Speci men Type: BLOOD SPECIMEN Ordering Facility: [facility] Address: [address] [place] [address] Performed By: #### 5 7021-8 #### [facility] CLIA [id number] [address] [place] [address] [place] Nucleated RBC/100 WBC (Bld) [Ratio] 0.0 /100 WBC Normal [facility] Comment on above: Order Comment: Speci men Type: BLOOD SPECIMEN Ordering Facility: [facility] Address: [address] [place] [address] Performed By: #### 5 7021-8 #### [facility] CLIA [id number] [address] [place] [address] [place] Platelet mean volume (Bld) [Entitic vol] 9.7 fL Normal 9.0-12.7 [facility] Comment on above: Order Comment: Speci men Type: BLOOD SPECIMEN Ordering Facility: [facility] Address: [address] [place] [address] Performed By: #### 5 7021-8 #### [facility] CLIA [id number] [address] [place] [address] [place] Platelets (Bld) [#/Vol] 211 10*3/uL Normal 150-400 [facility] Comment on above: Order Comment: Speci men Type: BLOOD SPECIMEN Ordering Facility: [facility] Address: [address] [place] [address] Performed By: #### 5 7021-8 #### [facility] CLIA [id number] [address] [place] [address] [place] RBC (Bld) [#/Vol] 3.53 10*6/uL Low 3.90-5.20 [facility] Comment on above: Order Comment: Speci men Type: BLOOD SPECIMEN Ordering Facility: [facility] Address: [address] [place] [address] Performed By: #### 5 7021-8 #### [facility] CLIA [id number] [address] [place] [address] [place] WBC (Bld) [#/Vol] 5.92 10*3/uL Normal 3.70-11.00 [facility] Comment on above: Order Comment: Speci men Type: BLOOD SPECIMEN Ordering Facility: [facility] Address: [address] [place] [address] Performed By: #### 5 7021-8 #### [facility] CLIA [id number] [address] [place] [address] [place] CNOVon 03-22-2025 CNOV Office Visit (FAMPWS ) -------- KANDI CORREIA ([id number]) 1945 F Date Time Provider Department 03/22/25 1:00 PM JAYLN SMITHWS During your visit today, we recorded the following information about you: Pulse Blood pressure Weight 64/minute 104/62 73.9 kg Jalyn Smith MD 03/22/2025 2:14 PM Signed Kandi Correia is a 79 year old female here for a Medicare wellness visit. Medicare Health Risk Assessment General Health Good Exercise: Minutes/Day 10 min Exercise: Days/Week 1 day Alcohol: Daily Use Monthly or less Alcohol: Drinks/Day Patient does not drink Alcohol: 6 or more drinks Never Feel off balance Yes Concerns: Teeth/Dentures No Concerns: Sexual function No Troubled by feelings Stressed Frequency: Eating healthy diet Several days ADLs requiring help Grocery shopping; Housework Safety precautions in home/vehicle Yes Smoke, vape, chews tobacco No Difficulty hearing Yes Difficulty seeing Yes-two cataracts Current Providers Specialists: I have reviewed specialist-related care of the patient in the medical record. Current care team: Patient Care Team: Jalyn Smith MD as PCP - General (Family Medicine) Marjan Reid APRN.REFINERY OPERATOR HELPER as Television Operator (Family Medicine) Casandra Kinsey APRN.CNP as Television Operator (Family Medicine) Dr Tompkins, optometry and Dr. Harman opth Dr Mayfield, pulmonary. Dr Todd, vascular surgery. Dr Paul, pain managment Medical/Family history review Reviewed and updated problem list, medical/surgical/family/ social history, medications, and allergies. Opioid use review Prescribed: No opioid use on file in the last 90 days Patient-reported: TRAMADOL 50 MG TABLET BUPRENORPHINE 7.5 MCG/HOUR WEEKLY TRANSDERMAL PATCH Does patient have risk factors for opioid abuse? No Pain overview Current pain concerns and treatment plan reviewed. Patient stable on current treatment plan and under the care of a specialist. Depression screening PHQ-2 Score: 0 (2024 3:49 PM) PHQ-9 Score: 3 (2024 3:49 PM) Based on score and interview, patient is already diagnosed with depression. Recommendation: continuing current treatment plan Anxiety screening JONH-2 Score: 0 JONH-7 Score: 3 Cognitive screening Mini Cog Score: 5 Cognitive screening reviewed and No further action needed (score 3-5). Functional Observation Was the patient's Timed Up AND Go test unsteady or >= 12 seconds? No Advance Directives Patient did not wish or was not able to name a surrogate decision maker or provide an advance care plan Measurements BP 104/62 Pulse 64 Wt 73.9 kg (163 lb) SpO2 94% BMI 27.98 kg/m? Vision Screening: Follows with optometry/ophthalmology ADDITIONAL INFO: Kandi is a 79-year-old female with a history of COPD, anxiety, depression, and DM, presenting for an annual wellness visit. Annual Wellness Exam: - Recent cataract surgeries on 01/16 and 01/30, followed by new glasses from Dr. Tompkins. - Denies issues with dentures or sexual functioning. - No recent falls; uses a walker at home and a wheelchair when out. - Has handrails and safety equipment at home. - Denies smoking, vaping, or chewing tobacco. - Denies hearing issues; has hearing aids but cannot find the charging cord. - Denies bowel or urinary issues. - Has a living will; sister is designated to make medical decisions if needed. - Last CT chest in October 2023; last CTA abdomen and pelvis in November 2024. - Denies chest pain. - Denies low blood sugar episodes. - Denies hallucinations. - Denies worsening leg swelling. - Denies using CPAP or BiPAP for sleep. - Denies seeing a dentist private practice. - Denies changes in bowel habits, hematochezia, melena, dysuria, urinary frequency, or hematuria. COPD: - On 3L O2 at home, 2L when going out. - Takes Mucinex regularly. - Follow-up with Dr. Mayfield at 1430 today for pulmonary function testing to assess continued need for home oxygen. Anxiety and Depression: - Feels stressed by everyday life and worries about family, especially during winter. - Feels sertraline is working well for mood management. Pain Management: - Followed by Dr. Paul monthly. - Taking Butrans, tramadol, baclofen, and gabapentin. - Wishes she could take Requip during the day for leg pain but only takes it at night. - Feels pain medications are managing pain well. Diabetes Mellitus: - Does not regularly check blood sugar at home; needs a new lancet device. - Last A1c was pretty good. Lifestyle: - Exercises about 10 minutes a day, once a week, mostly walking around the house. - Eats a healthy diet several days a week; sister helps with grocery shopping. - Consumes alcohol occasionally; has half a bottle of wine left from last [place]. - Does not drive; gave car to grandson. - Sleeps well; has a clock with a laser that projects the time on the ceiling. R (more content not included)... Normal [facility] Comprehensive metabolic 2000 panelon 03-22-2025 Albumin [Mass/Vol] 4.3 g/dL Normal 3.9-4.9 [facility] Comment on above: Order Comment: Speci men Type: BLOOD SPECIMENOrdering Facility: [facility] Address: [address] [place] [address] Performed By: #### 2 4323-8 ####[facility] [id number] [place] [address] [place] ALP [Catalytic activity/Vol] 77 U/L Normal 34-123 [facility] Comment on above: Order Comment: Speci men Type: BLOOD SPECIMENOrdering Facility: [facility] Address: [address] [place] [address] Performed By: #### 2 432-8 ####[facility] [id number] [place] [address] [place] ALT [Catalytic activity/Vol] 10 U/L Normal 7-38 [facility] Comment on above: Order Comment: Speci men Type: BLOOD SPECIMENOrdering Facility: [facility] Address: [address] [place] [address] Performed By: #### 2 4323-8 ####[facility] [id number] [place] [address] [place] Anion gap [Moles/Vol] 10 mmol/L Normal 8-15 [facility] Comment on above: Order Comment: Speci men Type: BLOOD SPECIMENOrdering Facility: [facility] Address: [address] [place] [address] Performed By: #### 2 4323-8 ####[facility] [id number] [place] [address] [place] AST [Catalytic activity/Vol] 19 U/L Normal 13-35 [facility] Comment on above: Order Comment: Speci men Type: BLOOD SPECIMENOrdering Facility: [facility] Address: [address] [place] [address] Performed By: #### 2 4323-8 ####[facility] [id number] [place] [address] [place] Bilirubin [Mass/Vol] 0.3 mg/dL Normal 0.2-1.3 [facility] Comment on above: Order Comment: Speci men Type: BLOOD SPECIMENOrdering Facility: [facility] Address: [address] [place] [address] Performed By: #### 2 4323-8 ####[facility] [id number] [place] [address] [place] Calcium [Mass/Vol] 9.5 mg/dL Normal 8.5-10.2 [facility] Comment on above: Order Comment: Speci men Type: BLOOD SPECIMENOrdering Facility: [facility] Address: [address] [place] [address] Performed By: #### 2 4323-8 ####[facility] [id number] [place] [address] [place] Chloride [Moles/Vol] 97 mmol/L Low 98-107 [facility] Comment on above: Order Comment: Speci men Type: BLOOD SPECIMENOrdering Facility: [facility] Address: [address] [place] [address] Performed By: #### 2 4323-8 ####[facility] [id number] [place] [address] [place] CO2 [Moles/Vol] 34 mmol/L High 22-30 [facility] Comment on above: Order Comment: Speci men Type: BLOOD SPECIMENOrdering Facility: [facility] Address: [address] [place] [address] Performed By: #### 2 4323-8 ####[facility] [id number] [place] [address] [place] Creatinine [Mass/Vol] 1.10 mg/dL High 0.58-0.96 [facility] Comment on above: Order Comment: Rg burgos Type: BLOOD SPECIMENOrdering Facility: [facility] Address: [address] [place] [address] Performed By: #### 2 4323-8 ####[facility] [id number] [place] [address] [place] eGFRcr SerPlBld CKD-EPI 2020 52 mL/min/1.73m??? Low >=60 [facility] Comment on above: Order Comment: Rg burgos Type: BLOOD SPECIMENOrdering Facility: [facility] Address: [address] [place] [address] Result Comment: Nara mated Glomerular Filtration Rate (eGFR) is calculated using the 2020 CKD-EPI creatinine equation. This equation utilizes serum creatinine, sex, and age as parameters. The creatinine assay has traceable calibration to isotope dilution-mass spectrometry. Refer to KDIGO guidelines for clinical interpretation. In patients with unstable renal function, e.g. those with acute kidney injury, the eGFR may not accurately reflect actual GFR. Performed By: #### 2 4323-8 ####[facility] [id number] [place] [address] [place] Glucose [Mass/Vol] 64 mg/dL Low 74-99 [facility] Comment on above: Order Comment: Rg burgos Type: BLOOD SPECIMENOrdering Facility: [facility] Address: [address] [place] [address] Result Comment: The [place] Diabetes Association (ADA) provides guidance for cutoff values for fasting glucose and random glucose. The ADA defines fasting as no caloric intake for at least 8 hours. Fasting plasma glucose results between 100 to 125 mg/dL indicate increased risk for diabetes (prediabetes). Fasting plasma glucose results greater than or equal to 126 mg/dL meet the criteria for diagnosis of diabetes. In the absence of unequivocal hyperglycemia, results should be confirmed by repeat testing. In a patient with classic symptoms of hyperglycemia or hyperglycemic crisis, random plasma glucose results greater than or equal to 200 mg/dL meet the criteria for diagnosis of diabetes. Reference: Standards of Medical Care in Diabetes 2016, [place] Diabetes Association. Diabetes Care. 2016.39(Suppl 1). Performed By: #### 2 4323-8 ####[facility] [id number] [place] [address] [place] Potassium [Moles/Vol] 4.0 mmol/L Normal 3.7-5.1 [facility] Comment on above: Order Comment: Speci men Type: BLOOD SPECIMENOrdering Facility: [facility] Address: [address] [place] [address] Performed By: #### 2 4323-8 ####[facility] [id number] [place] [address] [place] Protein [Mass/Vol] 6.9 g/dL Normal 6.3-8.0 [facility] Comment on above: Order Comment: Speci men Type: BLOOD SPECIMENOrdering Facility: [facility] Address: [address] [place] [address] Performed By: #### 2 4323-8 ####[facility]CLIA [id number] [place] [address] [place] Sodium [Moles/Vol] 141 mmol/L Normal 136-144 [facility] Comment on above: Order Comment: Speci men Type: BLOOD SPECIMENOrdering Facility: [facility] Address: [address] [place] [address] Performed By: #### 2 4323-8 ####[facility] [id number] [place] [id number] [place] Urea nitrogen [Mass/Vol] 23 mg/dL High 7-21 [facility] Comment on above: Order Comment: Speci men Type: BLOOD SPECIMENOrdering Facility: [facility] Address: [address] [place] [address] Performed By: #### 2 4323-8 ####[facility]CL[facility] [id number] [address] HbA1c (Bld)on 03-22-2025 Average glucose Estimated from glycated hemoglobin (Bld) [Mass/Vol] 105 mg/dL Normal [facility] Comment on above: Order Comment: Rg burgos Type: BLOOD SPECIMENOrdering Facility: [facility] Address: [address] [place] [address] Result Comment: eAG: (Estimated average glucose) is a calculated value from HgbA1c and is national account representative of the average blood glucose level in the last 2-3 month period. Performed By: #### 5 5454-3 ####[facility] [id number] [address] HbA1c (Bld) [Mass fraction] 5.3 % Normal 4.3-5.6 [facility] Comment on above: Order Comment: Rg burgos Type: BLOOD SPECIMENOrdering Facility: [facility] Address: [address] [place] [address] Result Comment: [place] Diabetes Association guidelines indicate that patients with HgbA1c in the range 5.7-6.4% are at increased risk for development of diabetes, and intervention by lifestyle modification may be beneficial. HgbA1c greater or equal to 6.5% is considered diagnostic of diabetes. Performed By: #### 5 5454-3 ####[facility] [id number] [address] CNOVon 03-08-2025 CNOV Office Visit (PULMWS ) -------- KANDI CORREIA ([id number]) 1945 F Date Time Provider Department 03/08/25 11:30 AM ORAL PERDUE PULSHANTEL During your visit today, we recorded the following information about you: Pulse Respiration 68/minute 16/minute Oral Perdue, [employer].REFINERY OPERATOR HELPER 03/08/2025 12:25 PM Signed Pulmonary Medicine Patients name: Kandi Correia PCP: Jalyn Smith MD CC: follow-up HPI: Kandi Correia is a 79 year old female former 65-hual-kohw smoker having quit in 2011 with PMH significant for obesity, HTN, fibromyalgia, descending aortic aneurysm with dissection, MICHEL not on CPAP, severe COPD (FEV1 32%), chronic hypoxemic respiratory failure. JERRELL 12/2023 with baseline symptoms. Current treatment with Breztri and as needed Albuterol. She presents today for follow-up with her daughter. Since her last visit, she denies any significant change in respiratory symptoms. Continues to feel well with regular use of Breztri. Today, patient reports baseline productive cough with white sputum. Sometimes mucus is thick and needs to use Mucinex. No hemoptysis. No wheezing, will occasionally have chest tightness. Will occasionally be short of breath at rest. Exertional dyspnea has not changed, will note with little activity. Per her daughter, she is not typically very active. Walks with a walker but is otherwise in a wheelchair for any particular distance. She is compliant with supplemental O2 but frequently breaths through her mouth and has to remind herself to breath through her nose. No fevers, chills, or night sweats. No recent hospitalizations or ED visits or upper respiratory infections. No unintended weight changes. Does not often use Albuterol. 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 Perry (vascular) Dissection of thoracoabdominal aorta ([facility]) 09/21/2023 Fibromyalgia HTN (hypertension) OA (osteoarthritis) MICHEL (obstructive sleep apnea) not on CPAP Restless leg syndrome Thoracic aortic aneurysm (HCC) 12/23/2018 Allergies: Lisinopril Other: See Comments Comment:cough Lyrica [Pregabalin] Swelling Medication List Accurate as of March 07, 2025 12:45 PM. If you have any questions, ask your nurse or doctor. CHANGE how you take these medications BLOOD GLUCOSE TEST test strip Generic drug: blood sugar diagnostic Test blood sugar(s) 2 times daily. Dx: Type 2 DM - Controlled E11.9 Insulin: No What changed: additional instructions COMPOUNDED PRESCRIPTION Oxygen via nasal canula 2 L N/C DX: copd and hypoxia What changed: additional instructions COMPOUNDED PRESCRIPTION Lightweight portable oxygen DX: copd, 2 L nc continuously What changed: additional instructions Lancets Test blood sugar(s) 2 times daily. Dx: Type 2 DM - Controlled E11.9 Insulin: No What changed: additional instructions CONTINUE taking these medications albuterol HFA 90 mcg/actuation inhaler Commonly known as: VENTOLIN HFA Inhale 2 Puffs as instructed every 4 hours as needed for wheezing/shortness of breath. baclofen 10 mg tablet Take 1 tablet by mouth three times a day. BREZTRI AEROSPHERE 160-9-4.8 mcg/actuation HFA aerosol inhaler Generic drug: fqpnkewwxv-jkiqyaoj-ajhk oterol Inhale 2 puffs as instructed two times a day. buprenorphine 7.5 mcg/hour transdermal patch Commonly known as: BUTRANS ferrous sulfate 325 mg (65 mg iron) tablet Take 1 tablet by mouth two times a day with meals. fluticasone 50 mcg/actuation nasal spray Commonly known as: FLONASE USE 1 SPRAY IN EACH NOSTRIL ONE TIME DAILY gabapentin 100 mg capsule Commonly known as: NEURONTIN Take 1 capsule by mouth three times a day for 180 days. hydroCHLOROthiazide 12.5 mg capsule Take 2 capsules by mouth once daily. Magnesium Oxide 500 mg magnesium Tab Take 1 tablet by mouth once daily. metFORMIN 500 mg tablet Commonly known as: GLUCOPHAGE Take 1 tablet by mouth daily with breakfast. metoprolol succinate ER 50 mg 24 hr tablet Commonly known as: TOPROL XL Take 1 tablet by mouth once daily. Hold if HR is less than 50 or systolic BP is less than 100 * oxybutynin XL 5 mg 24 hr tablet Commonly known as: DITROPAN XL Take 1 tablet by mouth once daily. * oxybutynin XL 5 mg 24 hr tablet Commonly known as: DITROPAN (more content not included)... Normal [facility] 01-24-2025 [facility] Telephone ([facility]) -------- KANDI CORREIA ([id number]) 1945 F Date Time Provider Department 01/24/25 JALYN SMITH [facility] During your visit today, we recorded the following information about you: Kalpana Sharif LPN 01/24/2025 4:23 PM Signed Type of form: AEP confirming she has medical equipment in case of power outage Form received via walk in When form is completed, Mail form to envelope provider Form has been forwarded to Physician Desk: Dr. Smith Still a few questions on form to answer. NICOLAS Coelho William J, MD 01/24/2025 4:24 PM Signed done Kalpana Sharif LPN 01/25/2025 9:15 AM Signed Mailed as requested. Allergies As of Date: 01/24/2025 Noted Allergy Reaction LISINOPRIL 12/26/2016 14 - Other: See Comments Comments: cough LYRICA (PREGABALIN) 01/13/2019 7 - Swelling Date Reviewed: 09/07/2024 Reviewed by: Kalpana Sharif LPN - Fully Assessed Reason for Visit: Forms [913] Prescriptions as of 01/25/2025 - ferrous sulfate 325 mg (65 mg iron) tablet Take 1 tablet by mouth two times a day with meals. - zszpqwxzkj-bbpniwfq-lmwa oterol (BREZTRI AEROSPHERE) 160-9-4.8 mcg/actuation HFA aerosol inhaler Inhale 2 puffs as instructed two times a day. - buprenorphine (BUTRANS) 7.5 mcg/hour transdermal patch Apply 1 patch as directed one time a week. - sertraline (ZOLOFT) 50 mg tablet Take 1 tab once a day. - hydroCHLOROthiazide 12.5 mg capsule Take 2 capsules by mouth once daily. - rOPINIRole (REQUIP) 2 mg tablet Take 1 tablet by mouth daily at bedtime. - baclofen 10 mg tablet Take 1 tablet by mouth three times a day. - gabapentin (NEURONTIN) 100 mg capsule Take 1 capsule by mouth three times a day for 180 days. - metFORMIN (GLUCOPHAGE) 500 mg tablet Take 1 tablet by mouth daily with breakfast. - oxybutynin XL (DITROPAN XL) 5 mg 24 hr tablet Take 1 tablet by mouth once daily. - metoprolol succinate ER (TOPROL XL) 50 mg 24 hr tablet Take 1 tablet by mouth once daily. Hold if HR is less than 50 or systolic BP is less than 100 - oxybutynin XL (DITROPAN XL) 5 mg 24 hr tablet Take 1 tablet by mouth once daily. - Magnesium Oxide 500 mg magnesium tab Take 1 tablet by mouth once daily. - fluticasone (FLONASE) 50 mcg/actuation nasal spray USE 1 SPRAY IN EACH NOSTRIL ONE TIME DAILY - albuterol HFA (VENTOLIN HFA) 90 mcg/actuation inhaler Inhale 2 Puffs as instructed every 4 hours as needed for wheezing/shortness of breath. - traMADol (ULTRAM) 50 mg tablet Take 50 mg by mouth two times a day. - Lancets lancets Test blood sugar(s) 2 times daily. Dx: Type 2 DM - Controlled E11.9 Insulin: No - blood sugar diagnostic (BLOOD GLUCOSE TEST) test strip Test blood sugar(s) 2 times daily. Dx: Type 2 DM - Controlled E11.9 Insulin: No - COMPOUNDED PRESCRIPTION Oxygen via nasal canula 2 L N/C DX: copd and hypoxia - COMPOUNDED PRESCRIPTION Lightweight portable oxygen DX: copd, 2 L nc continuously Meds Comments as of 12/31/2018: 12/31/18 The medications are managed by this patient by: PATIENT Maria Alejandra Nolan (Bike Assembler) Problem List As Of Date 01/24/2025 Noted Resolved DDD (degenerative disc disease), lumbar [M51.36*01/28/2013 Backache, unspecified [M54.9] 03/14/2013 08/20/2016 COPD with chronic bronchitis (HCC) [J44.89] 08/16/2020 Pain, neck [M54.2] 03/31/2016 08/20/2016 Acute midline thoracic back pain [M54.6] 03/31/2016 08/20/2016 Recurrent major depression in partial remission*07/16/2016 Essential hypertension [I10] 07/25/2016 HTN (hypertension) [I10] 08/20/2016 Class 2 obesity with body mass index (BMI) of 3*06/17/2017 03/09/2024 Obesity, Class II, BMI 35-39.9 [E66.812] 12/02/2017 04/02/2018 On home oxygen therapy [Z99.81] 04/02/2018 Type 2 diabetes mellitus without complication, *05/13/2018 Thoracic aortic aneurysm (HCC) [I71.20] 12/23/2018 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] 12/30/2018 09/21/2023 Skin ulcer (HCC) [L98.499] 02/09/2019 08/16/2020 MICHEL (obstructive sleep apnea) [G47.33] 05/24/2019 Chronic respiratory failure with hypoxia (HCC) *05/24/2019 Centrilobular emphysema (HCC) [J43.2] 10/01/2022 Obesity, Class III, BMI 40-49.9 (morbid obesity*08/17/2021 10/01/2022 NYHA class 2 and ACC/AHA stage C acute on chron*12/10/2022 Abdominal aortic aneurysm (AAA) without rupture*09/09/2023 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 Karson reports that Dr. Harman's office is now asking for surgical clearance from Dr. Smith. Karson was initially told that patient only needed cardiac clearance and today was told they need forms from Dr. Smith as well. Karson asking if provider would be able to fill the forms out that they need without an appointment as she doesn't have any availability to bring her in for an appointment prior to the procedure. Karson requests call back at [phone]. SANDRA Massey William J, MD 01/09/2025 1:37 PM Signed I should be able to Kalpana Sharif LPN 01/09/2025 2:41 PM Signed Notified daughter. She will have Dr Harman's office send form. Kalpana Sharif LPN 01/09/2025 3:05 PM Signed On desk for review. Jalyn Smith MD 01/09/2025 4:05 PM Signed done Kalpana Sharif LPN 01/09/2025 5:11 PM Signed Faxed back as requested. Allergies As of Date: 01/09/2025 Noted Allergy Reaction LISINOPRIL 12/26/2016 14 - Other: See Comments Comments: cough LYRICA (PREGABALIN) 01/13/2019 7 - Swelling Date Reviewed: 09/07/2024 Reviewed by: Kalpana Sharif LPN - Fully Assessed Reason for Visit: Surgical Clearance [Other] Prescriptions as of 01/09/2025 - ferrous sulfate 325 mg (65 mg iron) tablet Take 1 tablet by mouth two times a day with meals. - uocyhhbksc-pvywdkka-xwwo oterol (BREZTRI AEROSPHERE) 160-9-4.8 mcg/actuation HFA aerosol inhaler Inhale 2 puffs as instructed two times a day. - buprenorphine (BUTRANS) 7.5 mcg/hour transdermal patch Apply 1 patch as directed one time a week. - sertraline (ZOLOFT) 50 mg tablet Take 1 tab once a day. - hydroCHLOROthiazide 12.5 mg capsule Take 2 capsules by mouth once daily. - rOPINIRole (REQUIP) 2 mg tablet Take 1 tablet by mouth daily at bedtime. - baclofen 10 mg tablet Take 1 tablet by mouth three times a day. - gabapentin (NEURONTIN) 100 mg capsule Take 1 capsule by mouth three times a day for 180 days. - metFORMIN (GLUCOPHAGE) 500 mg tablet Take 1 tablet by mouth daily with breakfast. - oxybutynin XL (DITROPAN XL) 5 mg 24 hr tablet Take 1 tablet by mouth once daily. - metoprolol succinate ER (TOPROL XL) 50 mg 24 hr tablet Take 1 tablet by mouth once daily. Hold if HR is less than 50 or systolic BP is less than 100 - oxybutynin XL (DITROPAN XL) 5 mg 24 hr tablet Take 1 tablet by mouth once daily. - Magnesium Oxide 500 mg magnesium tab Take 1 tablet by mouth once daily. - fluticasone (FLONASE) 50 mcg/actuation nasal spray USE 1 SPRAY IN EACH NOSTRIL ONE TIME DAILY - albuterol HFA (VENTOLIN HFA) 90 mcg/actuation inhaler Inhale 2 Puffs as instructed every 4 hours as needed for wheezing/shortness of breath. - traMADol (ULTRAM) 50 mg tablet Take 50 mg by mouth two times a day. - Lancets lancets Test blood sugar(s) 2 times daily. Dx: Type 2 DM - Controlled E11.9 Insulin: No - blood sugar diagnostic (BLOOD GLUCOSE TEST) test strip Test blood sugar(s) 2 times daily. Dx: Type 2 DM - Controlled E11.9 Insulin: No - COMPOUNDED PRESCRIPTION Oxygen via nasal canula 2 L N/C DX: copd and hypoxia - COMPOUNDED PRESCRIPTION Lightweight portable oxygen DX: copd, 2 L nc continuously Meds Comments as of 12/31/2018: 12/31/18 The medications are managed by this patient by: PATIENT Maria Alejandra Nolan (Bike Assembler) Problem List As Of Date 01/09/2025 Noted Resolved DDD (degenerative disc disease), lumbar [M51.36*01/28/2013 Backache, unspecified [M54.9] 03/14/2013 08/20/2016 COPD with chronic bronchitis (HCC) [J44.89] 08/16/2020 Pain, neck [M54.2] 03/31/2016 08/20/2016 Acute midline thoracic back pain [M54.6] 03/31/2016 08/20/2016 Recurrent major depression in partial remission*07/16/2016 Essential hypertension [I10] 07/25/2016 HTN (hypertension) [I10] 08/20/2016 Class 2 obesity with body mass index (BMI) of 3*06/17/2017 03/09/2024 Obesity, Class II, BMI 35-39.9 [E66.812] 12/02/2017 04/02/2018 On home oxygen therapy [Z99.81] 04/02/2018 Type 2 diabetes mellitus without complication, *05/13/2018 Thoracic aortic aneurysm (HCC) [I71.20] 12/23/2018 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] 12/30/2018 09/21/2023 Skin ulcer (HCC) [L98.499] 02/09/2019 08/16/2020 MICHEL (obstructive sleep apnea) [G47.33] 05/24/2019 Chronic respiratory failure with hypoxia (HCC) *05/24/2019 Centrilobular emphysema (HCC) [J43.2] 10/01/2022 Obesity, Class III, BMI 40-49.9 (morbid obesity*08/17/2021 10/01/2022 NYHA class 2 and ACC/AHA stage C acute on chron*12/10/2022 Abdominal aortic aneurysm (AAA) without rupture*09/09/2023 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 Normal [facility] CTA ABD/PELV W IVCONon 12-02 CTA ABD/PELV W IVCON * * *Final Report* * * DATE OF EXAM: Dec 02 2024 2:02PM [facility] 0466 - CTA ABD/PELV W IVCON / PROCEDURE REASON: multiple diagnoses * * * * Physician Interpretation * * * * CT ANGIOGRAM OF THE CHEST, ABDOMEN AND PELVIS HISTORY: Follow-up aortic dissection. TECHNIQUE: High-resolution contrast-enhanced helical CT of the chest, abdomen, and pelvis was performed, timed to the arterial phase. 3-D processing was performed by the physician on an independent work station, 3D maximum intensity projection images were created, reviewed and archived. Total of 100 ml of Omnipaque 350 was injected IV during the examination. The study was performed without oral contrast. The patient tolerated the injection without complications. Dose-Length Product (DLP): 687 mGy*cm. CT Dose Reduction Employed: Automated exposure control(AEC) and iterative recon RESULT: COMPARISON: 10/14/2023. LIMITATIONS: None VASCULATURE: Normal course, contour and caliber of the ascending aorta and arch. Mild mixed atherosclerotic disease involving the aortic root, arch, proximal branch vessels and proximal descending aorta, unchanged. No high-grade focal stenosis. Redemonstrated aortic dissection not fully in the field of view, which extends distally to the left common iliac artery with opacification of the false lumen. Unchanged in size and extent from prior study. Celiac axis, SMA, bilateral renal arteries (2 renal arteries on the right and 3 renal arteries on the left), SOO, bilateral common iliac and left external and internal iliac arteries arise from the true lumen. Celiac artery demonstrates no significant focal stenosis. Superior mesenteric artery demonstrates no significant focal stenosis. Inferior mesenteric artery demonstrates no significant focal stenosis. There are two right renal arteries. Right renal artery demonstrates no significant focal stenosis. There are three left renal arteries. Left renal artery demonstrates no significant focal stenosis. RIGHT LEG: Right common iliac artery demonstrates atherosclerotic change without significant focal stenosis. Right external iliac artery is patent with no significant stenosis. Right internal iliac artery patent with mild stenosis at its origin. Right common femoral artery demonstrates atherosclerotic change without significant focal stenosis. 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 Left internal iliac artery patent with mild ectasia. Left common femoral artery demonstrates atherosclerotic change without significant focal stenosis. ABDOMEN/PELVIS: Liver: No mass. Biliary: No bile duct dilation. Gallbladder is unremarkable. Spleen: No mass. Calcified granuloma. No splenomegaly. Pancreas: Calcifications in the head and tail, likely sequela of pancreatitis. No mass or duct dilation Adrenals: No mass. Kidneys: Bilateral cysts. No hydronephrosis. Retroperitoneum: Unremarkable GI tract: No dilation or wall thickening. Lymph nodes: No abdominal or pelvic lymphadenopathy. Mesentery/Peritoneum: No ascites or mass. Pelvis: No mass, ascites or fluid collection. Bones/Soft Tissues: Degenerative changes. IMPRESSION: Unchanged aortic dissection in the abdomen and pelvis. Other vascular findings are unchanged from prior study, detailed above. Electrical Engineering Draftsperson: [facility] Transcribe Date/Time: Dec 02 2024 3:03P Dictated by : ROBBIE LEON MD This examination was interpreted and the report reviewed and electronically signed by: ROBBIE LEON MD on Dec 02 2024 3:09PM EST [id number] [facility] CTA Abdominal vessels and Pe lvis vessels W contrast Umer 12-02-2024 IMPRESSION: Unchanged aortic dissection in the abdomen and pelvis. Other vascular findings are unchanged from prior study, detailed above. Electrical Engineering Draftsperson: [facility] Transcribe Date/Time: Dec 02 2024 3:03P Dictated by : ROBBIE LEON MD This examination was interpreted and the report reviewed and electronically signed by: ROBBIE LEON MD on Dec 02 2024 3:09PM [facility] * * *Final Report* * * DATE OF EXAM: Dec 02 2024 2:02PM [facility] 0466 - CTA ABD/PELV W IVCON / PROCEDURE REASON: multiple diagnoses * * * * Physician Interpretation * * * * CT ANGIOGRAM OF THE CHEST, ABDOMEN AND PELVIS HISTORY: Follow-up aortic dissection. TECHNIQUE: High-resolution contrast-enhanced helical CT of the chest, abdomen, and pelvis was performed, timed to the arterial phase. 3-D processing was performed by the physician on an independent work station, 3D maximum intensity projection images were created, reviewed and archived. Total of 100 ml of Omnipaque 350 was injected IV during the examination. The study was performed without oral contrast. The patient tolerated the injection without complications. Dose-Length Product (DLP): 687 mGy*cm. CT Dose Reduction Employed: Automated exposure control(AEC) and iterative recon RESULT: COMPARISON: 10/14/2023. LIMITATIONS: None VASCULATURE: Normal course, contour and caliber of the ascending aorta and arch. Mild mixed atherosclerotic disease involving the aortic root, arch, proximal branch vessels and proximal descending aorta, unchanged. No high-grade focal stenosis. Redemonstrated aortic dissection not fully in the field of view, which extends distally to the left common iliac artery with opacification of the false lumen. Unchanged in size and extent from prior study. Celiac axis, SMA, bilateral renal arteries (2 renal arteries on the right and 3 renal arteries on the left), SOO, bilateral common iliac and left external and internal iliac arteries arise from the true lumen. Celiac artery demonstrates no significant focal stenosis. Superior mesenteric artery demonstrates no significant focal stenosis. Inferior mesenteric artery demonstrates no significant focal stenosis. There are two right renal arteries. Right renal artery demonstrates no significant focal stenosis. There are three left renal arteries. Left renal artery demonstrates no significant focal stenosis. RIGHT LEG: Right common iliac artery demonstrates atherosclerotic change without significant focal stenosis. Right external iliac artery is patent with no significant stenosis. Right internal iliac artery patent with mild stenosis at its origin. Right common femoral artery demonstrates atherosclerotic change without significant focal stenosis. 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 Left internal iliac artery patent with mild ectasia. Left common femoral artery demonstrates atherosclerotic change without significant focal stenosis. ABDOMEN/PELVIS: Liver: No mass. Biliary: No bile duct dilation. Gallbladder is unremarkable. Spleen: No mass. Calcified granuloma. No splenomegaly. Pancreas: Calcifications in the head and tail, likely sequela of pancreatitis. No mass or duct dilation Adrenals: No mass. Kidneys: Bilateral cysts. No hydronephrosis. Retroperitoneum: Unremarkable GI tract: No dilation or wall thickening. Lymph nodes: No abdominal or pelvic lymphadenopathy. Mesentery/Peritoneum: No ascites or mass. Pelvis: No mass, ascites or fluid collection. Bones/Soft Tissues: Degenerative changes. [facility] Provider, [facility] - 12/02/2024 * * *Final Report* * * DATE OF EXAM: Dec 02 2024 2:02PM [facility] 0466 - CTA ABD/PELV W IVCON / PROCEDURE REASON: multiple diagnoses * * * * Physician Interpretation * * * * CT ANGIOGRAM OF THE CHEST, ABDOMEN AND PELVIS HISTORY: Follow-up aortic dissection. TECHNIQUE: High-resolution contrast-enhanced helical CT of the chest, abdomen, and pelvis was performed, timed to the arterial phase. 3-D processing was performed by the physician on an independent work station, 3D maximum intensity projection images were created, reviewed and archived. Total of 100 ml of Omnipaque 350 was injected IV during the examination. The study was performed without oral contrast. The patient tolerated the injection without complications. Dose-Length Product (DLP): 687 mGy*cm. CT Dose Reduction Employed: Automated exposure control(AEC) and iterative recon RESULT: COMPARISON: 10/14/2023. LIMITATIONS: None VASCULATURE: Normal course, contour and caliber of the ascending aorta and arch. Mild mixed atherosclerotic disease involving the aortic root, arch, proximal branch vessels and proximal descending aorta, unchanged. No high-grade focal stenosis. Redemonstrated aortic dissection not fully in the field of view, which extends distally to the left common iliac artery with opacification of the false lumen. Unchanged in size and extent from prior study. Celiac axis, SMA, bilateral renal arteries (2 renal arteries on the right and 3 renal arteries on the left), SOO, bilateral common iliac and left external and internal iliac arteries arise from the true lumen. Celiac artery demonstrates no significant focal stenosis. Superior mesenteric artery demonstrates no significant focal stenosis. Inferior mesenteric artery demonstrates no significant focal stenosis. There are two right renal arteries. Right renal artery demonstrates no significant focal stenosis. There are three left renal arteries. Left renal artery demonstrates no significant focal stenosis. RIGHT LEG: Right common iliac artery demonstrates atherosclerotic change without significant focal stenosis. Right external iliac artery is patent with no significant stenosis. Right internal iliac artery patent with mild stenosis at its origin. Right common femoral artery demonstrates atherosclerotic change without significant focal stenosis. 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 Left internal iliac artery patent with mild ectasia. Left common femoral artery demonstrates atherosclerotic change without significant focal stenosis. ABDOMEN/PELVIS: Liver: No mass. Biliary: No bile duct dilation. Gallbladder is unremarkable. Spleen: No mass. Calcified granuloma. No splenomegaly. Pancreas: Calcifications in the head and tail, likely sequela of pancreatitis. No mass or duct dilation Adrenals: No mass. Kidneys: Bilateral cysts. No hydronephrosis. Retroperitoneum: Unremarkable GI tract: No dilation or wall thickening. Lymph nodes: No abdominal or pelvic lymphadenopathy. Mesentery/Peritoneum: No ascites or mass. Pelvis: No mass, ascites or fluid collection. Bones/Soft Tissues: Degenerative changes. IMPRESSION IMPRESSION: Unchanged aortic dissection in the abdomen and pelvis. Other vascular findings are unchanged from prior study, detailed above. Electrical Engineering Draftsperson: [facility] Transcribe Date/Time: Dec 02 2024 3:03P Dictated by : ROBBIE LEON MD This examination was interpreted and the report reviewed and electronically signed by: ROBBIE LEON MD on Dec 02 2024 3:09PM EST [facility] Study observation (narrative) [facility] CTA Abdominal vessels and Pe lvis vessels W contrast IVOrdered By: [facility] Provider on 12-02-2024 [facility] Creatinine + eGFR Pnl SerPlB ldon 12-02-2024 Creatinine and Glomerular filtration rate.predicted panel (S/P/Bld) 67 mL/min/1.73m??? Normal >=60 [facility] Comment on above: Order Comment: Rg burgos Type: BLOOD SPECIMEN Ordering Facility: [facility] Address: [address] [place] [address] Result Comment: [facility] Glomerular Filtration Rate (eGFR) is calculated using the 2020 CKD-EPI creatinine equation. This equation utilizes serum creatinine, sex, and age as parameters. The creatinine assay has traceable calibration to isotope dilution-mass spectrometry. Refer to KDIGO guidelines for clinical interpretation. In patients with unstable renal function, e.g. those with acute kidney injury, the eGFR may not accurately reflect actual GFR. Performed By: #### 4 [id number] #### [facility] CLIA [id number] [address] [facility] Creatinine and Glomerular fi ltration rate.predicted panel (S/P/Bld)on 12-02-2024 Creatinine [Mass/Vol] 0.89 mg/dL Normal 0.58-0.96 [facility] Comment on above: Order Comment: Rg burgos Type: BLOOD SPECIMEN Ordering Facility: [facility] Address: [address] [place] [address] Performed By: #### 4 [id number] #### [facility] CLIA [id number] [address] [place] [address] [place] NURSING PROGon 12-02-2024 NURSING PROG HNO ID: [id number] Author: ELY DAY RN Service: Radiology Author Type: Registered Nurse Type: Nursing Progress Note Filed: 12/02/2024 13:37 Note Text: Radiology Service Progress Note DATE OF SERVICE: December 02, 2024 TIME: 1:36 PM PATIENT WEIGHT: 173 LBS PATIENT IDENTITY VERIFICATION COMPLETED USING TWO (2) STANDARD IDENTIFIERS: Name and Date of confirmed by patient verbally. FALL SCREENING: Has the patient had 2 falls in the last year or 1 fall with injury or currently using an Ambulatory Assistive Device (Walker, Cane, Wheelchair, Crutches, etc.)? Yes, Patient High Risk for Falls What interventions were put in place to prevent falls during this visit? Increased Observations by Caregivers PATIENT GENDER DATA: Assigned female at . status: : No status: NO. ALLERGIES: Reviewed and unchanged CONTRAST ALLERGY: No EXAM: CT -CONTRAST INDUCED NEPHROPATHY RISK FACTORS: Patient age > 60 years CREATININE: Creatinine Date Value Ref Range Status 12/02/2024 0.89 0.58 - 0.96 mg/dL Final 03/09/2024 0.89 0.58 - 0.96 mg/dL Final 09/23/2023 0.93 0.58 - 0.96 mg/dL Final Estimated Glomerular Filtration Rate Date Value Ref Range Status 12/02/2024 67 >=60 mL/min/1.73m? Final Comment: Estimated Glomerular Filtration Rate (eGFR) is calculated using the 2020 CKD-EPI creatinine equation. This equation utilizes serum creatinine, sex, and age as parameters. The creatinine assay has traceable calibration to isotope dilution-mass spectrometry. Refer to KDIGO guidelines for clinical interpretation. In patients with unstable renal function, e.g. those with acute kidney injury, the eGFR may not accurately reflect actual GFR. eGFR- Date Value Ref Range Status 01/11/2021 >60 Final P.O.C.T. RESULTS: POC done: Yes, See Lab Tab December 02, 2024 TREATMENT: N/A IV SITE: Ambulatory: A peripheral IV was started in the Left antecubital site with a Angio cath: 20 gauge. IV SITE APPEARANCE: Clean,Dry and Intact SIGNATURE: Ely Day RN PATIENT NAME: Kandi Correia DATE: December 02, 2024 TIME: 1:36 PM [facility] 10-18-2024 [facility] Telephone ([facility]) -------- KANDI CORREIA ([id number]) 1945 F Date Time Provider Department 10/18/24 YANIV TODD During your visit today, we recorded the following information about you: Gale Eckert RN 10/18/2024 4:29 PM Signed Type of form: Medical clearance ( cataract surgery) Form received via fax When form is completed, Fax form to [phone] Form has been forwarded to nurse SANDRA Meehan Melissa, RN 10/21/2024 2:[address] Todd patient will need to have f/u and then can provide clearance. Attempted to call [facility] [phone], they are out of the office Will call next week Gale Eckert RN 10/26/2024 8:20 AM Signed Spoke with office staff and informed patient will need to be seen in our office before form can be completed. Will fax once complete Allergies As of Date: 10/18/2024 Noted Allergy Reaction LISINOPRIL 12/26/2016 14 - Other: See Comments Comments: cough LYRICA (PREGABALIN) 01/13/2019 7 - Swelling Date Reviewed: 09/07/2024 Reviewed by: Kalpana Sharif LPN - Fully Assessed Reason for Visit: Forms [913] Prescriptions as of 10/26/2024 - rOPINIRole (REQUIP) 2 mg tablet Take 1 tablet by mouth daily at bedtime. - baclofen 10 mg tablet Take 1 tablet by mouth three times a day. - gabapentin (NEURONTIN) 100 mg capsule Take 1 capsule by mouth three times a day for 180 days. - metFORMIN (GLUCOPHAGE) 500 mg tablet Take 1 tablet by mouth daily with breakfast. - oxybutynin XL (DITROPAN XL) 5 mg 24 hr tablet Take 1 tablet by mouth once daily. - metoprolol succinate ER (TOPROL XL) 50 mg 24 hr tablet Take 1 tablet by mouth once daily. Hold if HR is less than 50 or systolic BP is less than 100 - oxybutynin XL (DITROPAN XL) 5 mg 24 hr tablet Take 1 tablet by mouth once daily. - hydroCHLOROthiazide 12.5 mg capsule Take 2 capsules by mouth once daily. - sertraline (ZOLOFT) 50 mg tablet Take 1 tab once a day. - Magnesium Oxide 500 mg magnesium tab Take 1 tablet by mouth once daily. - wdjfjivczr-ulobzjpr-fxxn oterol (BREZTRI AEROSPHERE) 160-9-4.8 mcg/actuation HFA aerosol inhaler Inhale 2 Puffs as instructed two times a day. - fluticasone (FLONASE) 50 mcg/actuation nasal spray USE 1 SPRAY IN EACH NOSTRIL ONE TIME DAILY - albuterol HFA (VENTOLIN HFA) 90 mcg/actuation inhaler Inhale 2 Puffs as instructed every 4 hours as needed for wheezing/shortness of breath. - traMADol (ULTRAM) 50 mg tablet Take 50 mg by mouth two times a day. - Lancets lancets Test blood sugar(s) 2 times daily. Dx: Type 2 DM - Controlled E11.9 Insulin: No - blood sugar diagnostic (BLOOD GLUCOSE TEST) test strip Test blood sugar(s) 2 times daily. 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] 08/16/2020 Pain, neck [M54.2] 03/31/2016 08/20/2016 Acute midline thoracic back pain [M54.6] 03/31/2016 08/20/2016 Recurrent major depression in partial remission*07/16/2016 Essential hypertension [I10] 07/25/2016 HTN (hypertension) [I10] 08/20/2016 Class 2 obesity with body mass index (BMI) of 3*06/17/2017 03/09/2024 Obesity, Class II, BMI 35-39.9 [E66.812] 12/02/2017 04/02/2018 On home oxygen therapy [Z99.81] 04/02/2018 Type 2 diabetes mellitus without complication, *05/13/2018 Thoracic aortic aneurysm (HCC) [I71.20] 12/23/2018 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] 12/30/2018 09/21/2023 Skin ulcer (HCC) [L98.499] 02/09/2019 08/16/2020 MICHEL (obstructive sleep apnea) [G47.33] 05/24/2019 Chronic respiratory failure with hypoxia (HCC) *05/24/2019 Centrilobular emphysema (HCC) [J43.2] 10/01/2022 Obesity, Class III, BMI 40-49.9 (morbid obesity*08/17/2021 10/01/2022 NYHA class 2 and ACC/AHA stage C acute on chron*12/10/2022 Abdominal aortic aneurysm (AAA) without rupture*09/09/2023 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 03/09/2024 Encounter Status:Closed by GALE ECKERT on 10/26/24 Normal [facility] ALBUMIN/CREATININE RATIO, UR INEon 09-07-2024 Albumin DL <= 20 mg/L (U) [Mass/Vol] mg/dL Normal [facility] Comment on above: Order Comment: Speci men Type: URINE SPECIMENOrdering Facility: [facility] Address: [address] [place] [address] Performed By: #### U ACR ####[facility] [id number] [place] [address] [place] Albumin/Creatinine (U) [Mass ratio] <12 Normal <30 [facility] Comment on above: Order Comment: Speci men Type: URINE SPECIMENOrdering Facility: [facility] Address: [address] [place] [address] Result Comment: Adul t Male and Female Nephrotic Criteria: <30 mg/g is considered normal to mildly increased 30-300 mg/g is considered moderately increased >300 mg/g is considered severely increased KDIGO. (2013). KDIGO 2012 Clinical Practice Guideline for the Evaluation and Management of Chronic Kidney Disease. Official Journal of the International Society of Nephrology, 3(1), 1-150. Performed By: #### U ACR ####[facility]IA [id number] [place] [address] [place] Creatinine (U) [Mass/Vol] 101.2 mg/dL Normal 20.0-300.0 [facility] Comment on above: Order Comment: Speci men Type: URINE SPECIMENOrdering Facility: [facility] Address: [address] [place] [address] Performed By: #### U ACR ####[facility] LABIA [id number] [place] [id number] [place] CNOVon 09-07-2024 CNOV Office Visit (FAMPWS ) -------- KANDI CORREIA ([id number]) 1945 F Date Time Provider Department 09/07/24 2:40 PM JALYN SMITH FAMPWS During your visit today, we recorded the following information about you: Pulse Blood pressure Weight 71/minute 110/62 78.5 kg Jalyn Smith MD 09/07/2024 3:25 PM Signed Patient presents with: 6 Month Exam ER F/U HPI: Patient presents today for office visit for follow up. HOSPITAL/ER FOLLOW UP: Reason for visit: abd pain Which facility: [facility] Date of visit: 09/05/24 Diagnosis: abd pain Testing done: CT scan, urine test, lab work. Started after eating taco paris. Had some constipation. After she moved her bowels it felt better. No nausea or vomiting. No fever or chills. No urinary issues. Treatment given: no changes were made Current symptoms: on and off has had the pain but not nearly as bad Oxygen at home is 3L/min. Swelling stable. Breathing stable. Daughter feels that Kayla is helping her more. No chest pain. DM: Can't get lancet to work to check glucose. D Urine culture showed a uti. She was not started on antibiotics yet. Still seeing pulmonary and vascular. We had discussed having her see gi for her anemia and she has declined. Labs showed her chronic anemia. May be in part due to ckd. Cmp was stable. Will not repeat. MEDICATIONS: Current Outpatient Medications Medication Sig oxybutynin XL (DITROPAN XL) 5 mg 24 hr tablet Take 1 tablet by mouth once daily. rOPINIRole (REQUIP) 0.5 mg tablet Take 3 tablets by mouth daily at bedtime. metoprolol succinate ER (TOPROL XL) 50 mg 24 hr tablet Take 1 tablet by mouth once daily. Hold if HR is less than 50 or systolic BP is less than 100 rOPINIRole (REQUIP) 0.5 mg tablet Take 3 tablets by mouth daily at bedtime. oxybutynin XL (DITROPAN XL) 5 mg 24 hr tablet Take 1 tablet by mouth once daily. hydroCHLOROthiazide 12.5 mg capsule Take 2 capsules by mouth once daily. sertraline (ZOLOFT) 50 mg tablet Take 1 tab once a day. Magnesium Oxide 500 mg magnesium tab Take 1 tablet by mouth once daily. upxexmcjxx-ovhjydrs-ujge oterol (BREZTRI AEROSPHERE) 160-9-4.8 mcg/actuation HFA aerosol inhaler Inhale 2 Puffs as instructed two times a day. gabapentin (NEURONTIN) 100 mg capsule Take 1 capsule by mouth three times a day for 180 days. fluticasone (FLONASE) 50 mcg/actuation nasal spray USE 1 SPRAY IN EACH NOSTRIL ONE TIME DAILY baclofen 10 mg tablet Take 1 tablet by mouth three times a day. albuterol HFA (VENTOLIN HFA) 90 mcg/actuation inhaler Inhale 2 Puffs as instructed every 4 hours as needed for wheezing/shortness of breath. metFORMIN (GLUCOPHAGE) 500 mg tablet Take 1 tablet by mouth daily with breakfast. ferrous sulfate 325 mg (65 mg iron) tablet Take 1 tablet by mouth two times a day with meals. traMADol (ULTRAM) 50 mg tablet Take 50 mg by mouth two times a day. Lancets lancets Test blood sugar(s) 2 times daily. Dx: Type 2 DM - Controlled E11.9 Insulin: No (Patient taking differently: Test blood sugar(s) 2 times daily. Dx: Type 2 DM - Controlled E11.9 Insulin: No Takes blood sugar once daily) blood sugar diagnostic (BLOOD GLUCOSE TEST) test strip Test blood sugar(s) 2 times daily. Dx: Type 2 DM - Controlled E11.9 Insulin: No (Patient taking differently: Test blood sugar(s) 2 times daily. Dx: Type 2 DM - Controlled E11.9 Insulin: No Takes blood sugar once daily) COMPOUNDED PRESCRIPTION Oxygen via nasal canula 2 L N/C DX: copd and hypoxia (Patient taking differently: Oxygen via nasal canula 2 L N/C DX: copd and hypoxia Uses O2 at 3 l/m via NC) COMPOUNDED PRESCRIPTION Lightweight portable oxygen DX: copd, 2 L nc continuously (Patient taking differently: Lightweight portable oxygen DX: copd, 2 L nc continuously Uses at 3 l/m via NC) No current facility-administered medications for this visit. ALLERGIES: ALLERGIES Allergen Reactions Lisinopril Other: See Comments cough Lyrica [Pregabalin] Swelling PAST MEDICAL HISTORY Diagnosis Date AAA (abdominal aortic aneurysm) ([facility]) Abdominal aortic aneurysm (AAA) without rupture ([facility]) 09/09/2023 Aneurysm of left common iliac artery ([facility]) 11/05/2023 Aneurysm, thoracic aortic ([facility]) Arthritis Centrilobular emphysema ([facility]) 10/01/2022 Chronic pain Chronic respiratory failure with hypoxia ([facility]) 05/24/2019 Chronic venous stasis dermatitis COPD (chronic obstructive pulmonary disease) ([facility]) Degenerative disc disease Depression Descending thoracic aortic dissection ([facility]) 12/22/[address] Perry (vascular) Dissection of thoracoabdominal aorta ([facility]) 09/21/2023 Fibromyalgia HTN (hypertension) OA (osteoarthritis) MICHEL (obstructive sleep apnea) not on CPAP Restless leg syndrome Thoracic aortic aneurysm (HCC) 12/23/2018 PAST SURGICAL HISTORY Procedure Laterality Date HYSTERECTOMY HX prolapse non ca, tot (more content not included)... Normal [facility] HbA1c (Bld)on 09-07-2024 Average glucose Estimated from glycated hemoglobin (Bld) [Mass/Vol] 100 mg/dL Normal [facility] Comment on above: Order Comment: Rg burgos Type: BLOOD SPECIMEN [facility] Address: [address] [place] [address] Result Comment: eAG: (Estimated average glucose) is a calculated value from HgbA1c and is national account representative of the average blood glucose level in the last 2-3 month period. Performed By: #### 5 5454-3 #### [facility] CLIA [id number] [address] [place] [address] [place] HbA1c (Bld) [Mass fraction] 5.1 % Normal 4.3-5.6 [facility] Comment on above: Order Comment: Rg burgos Type: BLOOD SPECIMEN [facility] Address: [address] [place] [address] Result Comment: Amer ican Diabetes Association guidelines indicate that patients with HgbA1c in the range 5.7-6.4% are at increased risk for development of diabetes, and intervention by lifestyle modification may be beneficial. HgbA1c greater or equal to 6.5% is considered diagnostic of diabetes. Performed By: #### 5 5454-3 #### [facility] CLIA [id number] [address] [place] [address] [place] LIPID PANEL, NONFASTINGon Cholesterol [Mass/Vol] 188 mg/dL Normal <200 [facility] Comment on above: Order Comment: Rg burgos Type: BLOOD SPECIMENOrdering Facility: [facility] Address: [address] [place] [address] Result Comment: <200 mg/dL, Desirable 200-239 mg/dL, Borderline high >239 mg/dL, High Performed By: #### 1 9123-9, LIPNF ####[facility] [id number] [place] [address] [place] HDL CHOLESTEROL, NF 58 mg/dL Normal >39 [facility] Comment on above: Order Comment: Rg aubrey Type: BLOOD SPECIMENOrdering Facility: [facility] Address: [address] [place] [address] Result Comment: 40-5 9 mg/dL, Acceptable >59 mg/dL, High: Negative risk factor for coronary heart disease <40 mg/dL, Low: Positive risk factor for coronary heart disease Performed By: #### 1 9123-9, LIPNF ####[facility] [id number] [address] LDL CHOLESTEROL, NF 98 mg/dL Normal <100 [facility] Comment on above: Order Comment: Rg aubrey Type: BLOOD SPECIMENOrdering Facility: [facility] Address: [address] [place] [address] Result Comment: <100 mg/dL, Optimal 100-129 mg/dL, Near optimal/above optimal 130-159 mg/dL, Borderline high 160-189 mg/dL, High >189 mg/dL, Very high Secondary prevention optimal LDL Cholesterol levels are recommended to be < 70 mg/dL Performed By: #### 1 9123-9, LIPNF ####[facility] [id number] [address] LDL/HDL RATIO, NF 1.69 mg/dL Normal <2.54 [facility] Comment on above: Order Comment: Charumelonie burgos Type: BLOOD SPECIMENOrdering Facility: [facility] Address: [address] [place] [address] Result Comment: Refe rence: 1. National Cholesterol Education Program ATP III Guideline At-A-Glance Quick Desk Reference: National Heart, Lung, and Blood [place]. National Institutes of Health. 2001: NIH Publication No. 01-3305. 2. An International Atherosclerosis Society position paper: global recommendations for the management of dyslipidemia: executive summary, Atherosclerosis. 2014: 232(2):410-413. Performed By: #### 1 9123-9, LIPNF ####[facility] [id number] [place] [address] [place] NON HDL CHOL, NF 130 mg/dL High <130 [facility] Comment on above: Order Comment: Speci men Type: BLOOD SPECIMENOrdering Facility: [facility] Address: [address] [place] [address] Result Comment: <130 mg/dL, Optimal 130-159 mg/dL, Near optimal/above optimal 160-189 mg/dL, Borderline high 190-219 mg/dL, High >219 mg/dL, Very high Secondary prevention optimal non HDL Cholesterol levels are recommended to be <100 mg/dL Performed By: #### 1 9123-9, LIPNF ####[facility] [id number] [place] [address] [place] T CHOL/HDL RATIO NF 3.24 mg/dL Normal <5.10 [facility] Comment on above: Order Comment: Speci men Type: BLOOD SPECIMENOrdering Facility: [facility] Address: [address] [place] [address] Performed By: #### 1 9123-9, LIPNF ####[facility]CLIA [id number] [place] [address] [place] TRIGLYCERIDES, NF 158 mg/dL High <150 [facility] Comment on above: Order Comment: Speci men Type: BLOOD SPECIMENOrdering Facility: [facility] Address: [address] [place] [address] Result Comment: <150 mg/dL, Normal 150-199 mg/dL, Borderline high 200-499 mg/dL, High >499 mg/dL, Very high Performed By: #### 1 9123-9, LIPNF ####[facility] LABIA [id number] [place] [address] [place] VLDL CHOLESTEROL, NF 32 mg/dL High <30 [facility] Comment on above: Order Comment: Speci men Type: BLOOD SPECIMENOrdering Facility: [facility] Address: [address] [place] [address] Performed By: #### 1 9123-9, LIPNF ####[facility] LABCLIA [id number] [place] [id number] [facility] Magnesium SerPl-mCncon 09-07 Magnesium [Mass/Vol] 1.9 mg/dL Normal 1.7-2.3 [facility] Comment on above: Order Comment: Speci men Type: BLOOD SPECIMENOrdering Facility: [facility] Address: [address] [place] [address] Performed By: #### 1 9123-9, LIPNF ####[facility] [id number] [address] [place] Urine Cultureon 09-06-2024 [facility] Escherichia coli [place] Count >100,000 Escherichia coli: REACTION Ampicillin Islt SHENA <=2 Ampicillin+Sulbac Islt SHENA <=2 S Cefepime Islt SHENA <=0.12 S cefTRIAXone Islt SHENA <=0.25 S Ciprofloxacin Islt SHENA >=4 R B-Lactamase Extended Susc Islt NEG Gentamicin Islt SHENA <=1 S levoFLOXacin Islt SHENA >=8 R Meropenem Islt SHENA <=0.25 S Nitrofurantoin Islt SHENA <=16 S Pip+Tazo Islt SHENA <=4 S TMP SMX Islt SHENA <=20 S Normal [facility] Comment on above: Performed By: #### M 100.2200 #### [facility] [address] [facility] [place], [place], [address] Abdomen/Pelvis W IV Cont ONL Yon 09-04-2024 Abdomen/Pelvis W IV Cont ONLY [facility] Services [address] [place], [place] [address] Abdomen/Pelvis W IV Cont ONLY MR#: [id number] Acct: [id number] Name: KANDI CORREIA Rep #: [id number] : 1945 F 79 From: Frieda Brooke nd, [place] PCP: Dr. Jalyn Smith MD Status: REG ER Study: Abdomen/Pelvis W IV Cont ONLY Date of Exam: Exam# [id number] Ordering Dr: Viraj Dozier DO PROCEDURE: ABDOMEN/PELVIS W IV CONT ONLY 09/04/2024 REASON FOR EXAM: 79-year-old female, RIGHT ABDOMINAL PAIN TECHNIQUE: Abdomen and pelvis CT with intravenous contrast. Coronal and Sagittal reconstruction series were provided. PATIENT PREPARATION: Per protocol ORAL CONTRAST TYPE: None. CONTRAST: Isovue-300 VOLUME: 100ML One or more dose reduction techniques were used (e.g., Automated exposure control, adjustment of the mA and/or kV according to patient size, use of iterative reconstruction technique. RADIATION DOSE SUMMARY: CTDlvol: 21 mGy DLP: 930 mGycm COMPARISON: CT abdomen pelvis 08/28/2023. FINDINGS: Lung bases: The heart is normal in size with mitral annular calcifications. Incompletely visualized partially calcified descending thoracic aortic aneurysm, exiting into the abdomen. Liver: Mild hepatomegaly without focal mass. The major portal veins are patent. No biliary ductal dilation. Gallbladder: No radiopaque stones within the gallbladder. Spleen: Normal in size. Pancreas: Normal size without evidence of mass surrounding inflammation or ductal dilation. Punctate calcifications within the pancreatic head, unchanged since at least 2019. These do not appear within the pancreatic duct. Adrenals: Unremarkable. Kidneys: Bilateral renal cysts. No hydronephrosis or nephrolithiasis. Bladder: Mildly distended and unremarkable. Reproductive Organs: Prior hysterectomy. Bowel: The bowel loops are normal in caliber. No ascites or pneumoperitoneum. No inflammatory mass in the expected region of the appendix. Lymph nodes: No suspicious lymphadenopathy. Vasculature: No significant change in the thoracic and abdominal aortic aneurysm measuring at least 4.2 cm in AP diameter (series 2, image 31), previously measuring 4.4 cm when measured in a similar fashion. the celiac, SMA and SOO arise off the true lumen. Moderate calcific plaque of the celiac trunk at its origin. The false lumen extends into the left common iliac artery and terminates at the bifurcation of the internal and external iliac arteries. Bones: Thoracolumbar spondylosis. CT/Abdomen/Pelvis W IV Cont ONLY IMPRESSION: 1. No acute abdominopelvic finding. 2. Stable lower thoracic and aortoiliac aneurysm as described. Follow-up with outpatient vascular surgery is recommended, with routine outpatient yearly CTA's to evaluate for stability. 3. Mild hepatomegaly. Reading Location: [facility] CC: Dr. Viraj Dozier DO; Dr. Jalyn Smith MD Electrical Engineering Draftsperson: Signed Normal [facility] Absolute neutrophil countOrd ered By: Viraj Dozier on 09-04-2024 Neutrophils (Bld) [#/Vol] 3.9 10*3/uL 2.0-7.7 [facility] Anion gap in Serum or Plasma Ordered By: Viraj Dozier on 09-04-2024 Anion gap [Moles/Vol] 12 mmol/L 5-15 [facility] BUN/creatinine ratioOrdered By: Viraj Dozier on 09-04-2024 Urea nitrogen/Creatinine [Mass ratio] 23.6 mg/mg High 10-20 [facility] Basic Metabolic Profile (BMP )on 09-04-2024 BUN/CRE 23.6 RATIO High 10-20 [facility] Comment on above: Performed By: #### L 100.0100, L500.2500, L501.2450, L500.3400 #### [facility] [address] [place], [address] Calcium [Mass/Vol] 9.2 mg/dL Normal 7.6-11.0 [facility] Comment on above: Performed By: #### L 100.0100, L500.2500, L501.2450, L500.3400 #### [facility] [address] [place], [address] Chloride [Moles/Vol] 98 mmol/L Normal 98-108 [facility] Comment on above: Performed By: #### L 100.0100, L500.2500, L501.2450, L500.3400 #### [facility] [address] [place], [address] CO2 [Moles/Vol] 29.1 mmol/L Normal 21.0-32.0 [facility] Comment on above: Performed By: #### L 100.0100, L500.2500, L501.2450, L500.3400 #### [facility] [address] [place], [address] Creatinine [Mass/Vol] 1.07 mg/dL Normal 0.70-1.20 [facility] Comment on above: Performed By: #### L 100.0100, L500.2500, L501.2450, L500.3400 #### [facility] [address] [place], [address] ECRCL 43.22 ml/min Low 50-250 [facility] Comment on above: Performed By: #### L 100.0100, L500.2500, L501.2450, L500.3400 #### [facility] [address] [place], [address] GAP 12 Normal 5-15 [facility] Comment on above: Performed By: #### L 100.0100, L500.2500, L501.2450, L500.3400 #### [facility] [address] [place], [address] GFR/1.73 sq M.predicted among non-blacks MDRD (S/P/Bld) [Vol rate/Area] 53 mL/min/{1.73_m2} Low >60 [facility] Comment on above: Result Comment: mL/m in/1.73m2 CKD-EPI Creatinine Equation (2020) Performed By: #### L 100.0100, L500.2500, L501.2450, L500.3400 #### [facility] [address] [place], [address] Glucose [Mass/Vol] 114 mg/dL High 70-99 [facility] Comment on above: Performed By: #### L 100.0100, L500.2500, L501.2450, L500.3400 #### [facility] [address] [place], [address] Potassium [Moles/Vol] 3.6 mmol/L Normal 3.3-5.1 [facility] Comment on above: Performed By: #### L 100.0100, L500.2500, L501.2450, L500.3400 #### [facility] [address] [place], [address] Sodium [Moles/Vol] 140 mmol/L Normal 133-145 [facility] Comment on above: Performed By: #### L 100.0100, L500.2500, L501.2450, L500.3400 #### [facility] [address] [place], [address] Urea nitrogen [Mass/Vol] 25 mg/dL High 4-19 [facility] Comment on above: Performed By: #### L 100.0100, L500.2500, L501.2450, L500.3400 #### [facility] [address] [place], [address] Basophil percentageOrdered B y: Viraj Dozier on 09-04-2024 Basophils/100 WBC (Bld) 0.9 % 0-1 [facility] Bilirubin Test strip Ql (U)O rdered By: Viraj Dozier on 09-04-2024 Bilirubin Ql (U) Negative Negative [facility] Bilirubin directOrdered By: Viraj Dozier on 09-04-2024 Bilirubin.direct [Mass/Vol] 0.18 mg/dL 0.00-0.30 [facility] Bilirubin, totalOrdered By: Viraj Dozier on 09-04-2024 Bilirubin [Mass/Vol] 0.44 mg/dL 0.00-1.30 [facility] CBC W/Diff, Automatedon 08-08 Absolute Lymph 0.81 X10 3/uL Low 0.83-4.51 [facility] Comment on above: Performed By: #### L 100.0100, L500.2500, L501.2450, L500.3400 #### [facility] [address] [place], [address] Absolute Neut 3.9 X10 3/uL Normal 2.0-7.7 [facility] Comment on above: Performed By: #### L 100.0100, L500.2500, L501.2450, L500.3400 #### [facility] [address] [place], [address] Basophils/100 WBC (Bld) 0.9 % Normal 0-1 [facility] Comment on above: Performed By: #### L 100.0100, L500.2500, L501.2450, L500.3400 #### [facility] [address] [place], [address] Eosinophils/100 WBC (Bld) 1.7 % Normal 0-5 [facility] Comment on above: Performed By: #### L 100.0100, L500.2500, L501.2450, L500.3400 #### [facility] [address] [place], [address] Erythrocyte distribution width (RBC) [Ratio] 13.0 % Normal 11.6-14.6 [facility] Comment on above: Performed By: #### L 100.0100, L500.2500, L501.2450, L500.3400 #### [facility] [address] [place], [address] Hematocrit (Bld) [Volume fraction] 32.2 % Low 37-47 [facility] Comment on above: Performed By: #### L 100.0100, L500.2500, L501.2450, L500.3400 #### [facility] [address] [place], [address] Hemoglobin (Bld) [Mass/Vol] 10.5 g/dL Low 12.0-15.0 [facility] Comment on above: Performed By: #### L 100.0100, L500.2500, L501.2450, L500.3400 #### [facility] [address] [place], [address] IG% 0.300 Normal 0.0-0.9 [facility] Comment on above: Result Comment: IG% - Immature Granulocytes (promyelocytes, myelocytes and metamyelocytes) > 1% indicates that a LEFT SHIFT is Present. Performed By: #### L 100.0100, L500.2500, L501.2450, L500.3400 #### [facility] [address] [place], [address] Lymphocytes/100 WBC (Bld) 14.2 % Low 19-41 [facility] Comment on above: Performed By: #### L 100.0100, L500.2500, L501.2450, L500.3400 #### [facility] [address] [place], [address] MCH (RBC) [Entitic mass] 30.7 pg Normal 27.0-32.0 [facility] Comment on above: Performed By: #### L 100.0100, L500.2500, L501.2450, L500.3400 #### [facility] [address] [place], [address] MCHC (RBC) [Mass/Vol] 32.6 g/dL Normal 32-36 [facility] Comment on above: Performed By: #### L 100.0100, L500.2500, L501.2450, L500.3400 #### [facility] [address] [place], [address] MCV (RBC) [Entitic vol] 94.2 fL Normal 81-99 [facility] Comment on above: Performed By: #### L 100.0100, L500.2500, L501.2450, L500.3400 #### [facility] [address] [place], [address] Monocytes/100 WBC (Bld) 14.5 % High 0-10 [facility] Comment on above: Performed By: #### L 100.0100, L500.2500, L501.2450, L500.3400 #### [facility] [address] [place], [address] Neutrophils/100 WBC (Bld) 68.4 % Normal 47-70 [facility] Comment on above: Performed By: #### L 100.0100, L500.2500, L501.2450, L500.3400 #### [facility] [address] [place], [address] Nucleated RBC (Bld) [#/Vol] 0 10*3/uL Normal 0-5 [facility] Comment on above: Performed By: #### L 100.0100, L500.2500, L501.2450, L500.3400 #### [facility] Laboratory [address] [place], [address] Platelet mean volume (Bld) [Entitic vol] 9.6 fL Normal 6.2-12.0 [facility] Comment on above: Performed By: #### L 100.0100, L500.2500, L501.2450, L500.3400 #### [facility] Laboratory [address] [place], [address] Platelets (Bld) [#/Vol] 196 10*3/uL Normal 150-450 [facility] Comment on above: Performed By: #### L 100.0100, L500.2500, L501.2450, L500.3400 #### [facility] Laboratory [address] [place], [address] RBC (Bld) [#/Vol] 3.42 10*6/uL Low 4.2-5.4 [facility] Comment on above: Performed By: #### L 100.0100, L500.2500, L501.2450, L500.3400 #### [facility] Laboratory [address] [place], [address] RDW SD 44.6 fl High 35.1-43.9 [facility] Comment on above: Performed By: #### L 100.0100, L500.2500, L501.2450, L500.3400 #### [facility] Laboratory [address] [place], [address] WBC (Bld) [#/Vol] 5.7 10*3/uL Normal 4.4-11.0 [facility] Comment on above: Performed By: #### L 100.0100, L500.2500, L501.2450, L500.3400 #### [facility] Laboratory [address] [place], [address] Carbon dioxide, total [Moles /volume] in Central venous bloodOrdered By: Viraj Dozier on 09-04-2024 CO2 [Moles/Vol] 29.1 mmol/L 21.0-32.0 [facility] Chloride assayOrdered By: Westley Dozier on 09-04-2024 Chloride [Moles/Vol] 98 mmol/L 98-108 [facility] Summary on 09-04-2024 Emergency Department Summary [facility] Medical Records Department [address] [place] [address] Emergency Department Summary 09/04/24 MR#: [id number] Acct: [id number] Name: KANDI CORREIA Rep #: [id number] : 1945 79 From: Viraj Dozier DO PCP: Dr. Jalyn Smith MD Status:DEP ER Location: ED HPI History of Present Illness Chief Complaint: Abd Pain Informant: patient, family and EMS Narrative Narrative: 79-year-old female presenting to the emergency room chief complaint of right side pain. Patient states that last night she went to bed she had a grabbing pain in her right side that occurred whenever she would go to move. No vomiting or diarrhea. No fevers. She eventually called the ambulance this morning. She states now it seems to be better and she is moving more easily. She notes she had a bowel movement last night. She is chronically on home O2 due to COPD. She is a diabetic. She has had prior appendectomy and hysterectomy. She had [employer] for dinner. She denies any urinary symptoms. [facility] Medical History Aortic dissection, abdominal Weakness Venous stasis ulcer of left lower leg with edema of left lower leg Right knee pain Debility Generalized muscle weakness Edema of both lower extremities Muscle spasm RLS (restless legs syndrome) GERD (gastroesophageal reflux disease) MICHEL (obstructive sleep apnea) Morbid obesity with BMI of 40.0-44.9, adult Degenerative disc disease, lumbar Type 2 diabetes mellitus without complication Osteoarthritis Essential hypertension Fibromyalgia Depression COPD (chronic obstructive pulmonary disease) Home Medications ???Medication ???Instructions ???Recorded ???Last Taken ???Type albuterol sulfate 90 mcg/actuation 2 puff inhalation Q4H PRN Sob / Or 10/14/18 Unknown History aerosol inhaler Wheezing metformin 500 mg tablet 500 mg PO DAILY Blood sugar 12/10/22 History ropinirole 0.5 mg tablet 1.5 mg PO QHS Restless leg 9 12/09/22 History Oxygen #1 ea 10/27/18 Unknown History ipratropium 0.5 mg-albuterol 3 mg 1 dose inhalation 4X/DAY Breathin g 12/22/18 Unknown History (2.5 mg base)/3 mL nebulization soln sertraline 50 mg tablet 50 mg PO DAILY Mood 07/25/2112/10 History acetaminophen 500 mg tablet 1,000 mg (2 x 500 mg) PO Q6H PRN 0 08/07/21 Unknown Rx PRN Pain Score 1-3 #0 tabs gabapentin 100 mg capsule 100 mg PO TIDCM nerve pain 30 days 08/07/21 12/10/22 Rx #90 caps arformoterol 15 mcg/2 mL solution 15 mcg inhalation Q12H breathing 12/11/22 Unknown History for nebulization metoprolol succinate 50 mg 50 mg PO DAILY BP/HR 30 days #0 Unknown Rx tablet,extended release 24 hr tabs cephalexin 500 mg capsule 500 mg PO Q6 7 days #28 caps 01/02 Unknown Rx doxycycline monohydrate 100 mg 100 mg PO BID 7 days #14 caps 12/07 01/28 Unknown Rx capsule levofloxacin 500 mg tablet 500 mg PO DAILY #7 tabs 08/28/23 U nknown Rx budesonide 160 mcg-glycopyr 9 2 inh inhalation BID 09/04/24 Unkn own History mcg-formot 4.8 mcg/actuation HFA inhaler (Breztri Aerosphere) buprenorphine 7.5 mcg/hour weekly 1 patch transdermal QWEEK 5 Unknown History transdermal patch hydrochlorothiazide 12.5 mg capsule 12.5 mg PO Q12H 09/04/24 Unknow n History oxybutynin chloride 5 mg 5 mg PO DAILY 09/04/24 Unknown His tory tablet,extended release 24 hr tramadol 50 mg tablet 50 mg PO BID PRN PRN pain 09/04/24 Unknown History Allergy/AdvReac Type Severity Reaction Status Date / Time lisinopril AdvReac Intermediate cough Verified 09/04/24 07:04 pregabalin (From Lyrica) AdvReac Swelling Verified 09/04/24 07:04 Family History Mother Cancer lymphoma Father COPD (chronic obstructive pulmonary disease) Cancer bone Son Heart disease ischemic heart disease Surgical History History of appendectomy History of tonsillectomy History of hysterectomy Social History household members: none Smoking Status: Former smoker how long ago did patient quit smokin.5 years ago alcohol intake: current alcohol intake frequency: holidays/special occasions only substance use type: does not use caffeine: Yes Type: coffee Number of servings: 1 ROS ROS ED Constitutional Constitutional ED: Denies chills, fever(s) or weight loss Eyes Eyes: Denies change in vision or diplopia ENT ENT ED: Denies ear pain, rhinorrhea or sore throat Cardiovascular Cardiovascular: Denies chest pain, orthopnea, palpitations or racing heartbeat Respiratory/Chest Respiratory/Chest: Denies cough, dyspnea or orthopnea Gastrointesti (more content not included)... Normal [facility] Eosinophil percentageOrdered By: Viraj Dozier on 09-04-2024 Eosinophils/100 WBC (Bld) 1.7 % 0-5 [facility] Epithelial cells.squamous LM Ql (Urine sed)Ordered By: Viraj Dozier on 09-04-2024 Epithelial cells.squamous LM.HPF (Urine sed) [#/Area] 0 /[HPF] 5-10 [facility] Erythrocyte distribution wid th ratioOrdered By: Viraj Dozier on 09-04-2024 Erythrocyte distribution width (RBC) [Ratio] 13.0 % 11.6-14.6 [facility] Erythrocyte distribution wid th standard deviationOrdered By: Viraj Dozier on 09-04-2024 Erythrocyte distribution width (RBC) [Entitic vol] 44.6 fL High 35.1-43.9 [facility] Estimation of creatinine jesse aranceOrdered By: Viraj Dozier on 09-04-2024 Estimated Creatinine Clearance Calc 43.22 ml/min Low 50-250 [facility] GFR/1.73 sq M.predicted jonny g non-blacks MDRD (S/P/Bld) [Vol rate/Area]Ordered By: Viraj Dozier on 09-04-2024 Estimated GFR (MDRD) Non-Af Amer 53 Low >60 [facility] Comment on above: mL/min/1.73m2 CKD-EP I Creatinine Equation (2020) Glucose Ql (U)Ordered By: Westley Dozier on 09-04-2024 Urine Glucose (UA) Normal mg/dl Normal [facility] Hematocrit Auto (Bld) [Volum e fraction]Ordered By: Viraj Dozier on 09-04-2024 Hematocrit (Bld) [Volume fraction] 32.2 % Low 37-47 [facility] Hemoglobin measurementOrdere d By: Viraj Dozier on 09-04-2024 Hemoglobin (Bld) [Mass/Vol] 10.5 g/dL Low 12.0-15.0 [facility] Immature granulocytes/100 WB C Auto (Bld)Ordered By: Viraj Dozier on 09-04-2024 Immature granulocytes/100 WBC (Bld) 0.300 % 0.0-0.9 [facility] Comment on above: IG% - Immature Granu locytes (promyelocytes, myelocytes and metamyelocytes) > 1% indicates that a LEFT SHIFT is Present. Ketones Test strip Ql (U)Ord ered By: Viraj Dozier on 09-04-2024 Ketones Ql (U) Negative Negative [facility] Laboratory - Chemistry and C hemistry - challengeOrdered By: Viraj Dozier on 09-04-2024 AST [Catalytic activity/Vol] 19 U/L <32 [facility] Lipaseon 09-04-2024 Lipase [Catalytic activity/Vol] 17 U/L Normal 13-75 [facility] Comment on above: Result Comment: Sil owens note: LIPASE revised reference range effective 22. New Lipase methodology. Expected to produce lower values than the previous assay method. NEW Reference Range: 13 - 75 U/L Performed By: #### L 505.5000, L3410.9998 #### [facility] Laboratory [address] [place], [address] Lipase measurementOrdered By : Viraj Dozier on 09-04-2024 Lipase [Catalytic activity/Vol] 17 U/L 13-75 [facility] Comment on above: Please note:LIPASE r evised reference range effective 22. New Lipase methodology. Expected to produce lower values than the previous assay method. NEW Reference Range: 13 - 75 U/L Liver Profileon 09-04-2024 Albumin [Mass/Vol] 4.1 g/dL Normal 3.4-4.8 [facility] Comment on above: Performed By: #### L 100.0100, L500.2500, L501.2450, L500.3400 #### [facility] Laboratory [address] [place], [address] ALK PHOS 84 U/L Normal 35-104 [facility] Comment on above: Performed By: #### L 100.0100, L500.2500, L501.2450, L500.3400 #### [facility] Laboratory [address] [place], [address] ALT [Catalytic activity/Vol] 8 U/L Normal <=34 [facility] Comment on above: Performed By: #### L 100.0100, L500.2500, L501.2450, L500.3400 #### [facility] Laboratory [address] [place], [address] AST [Catalytic activity/Vol] 19 U/L Normal <=31 [facility] Comment on above: Performed By: #### L 100.0100, L500.2500, L501.2450, L500.3400 #### [facility] Laboratory [address] [place], [address] Bilirubin [Mass/Vol] 0.44 mg/dL Normal 0.00-1.30 [facility] Comment on above: Performed By: #### L 100.0100, L500.2500, L501.2450, L500.3400 #### [facility] Laboratory [address] [place], [address] Bilirubin.direct [Mass/Vol] 0.18 mg/dL Normal 0.00-0.30 [facility] Comment on above: Performed By: #### L 100.0100, L500.2500, L501.2450, L500.3400 #### [facility] Laboratory [address] [place], [address] Globulin (S) [Mass/Vol] 2.6 g/dL Normal 2.2-4.2 [facility] Comment on above: Performed By: #### L 100.0100, L500.2500, L501.2450, L500.3400 #### [facility] Laboratory [address] [place], [address] T PROT 6.6 g/dL Normal 5.9-8.4 [facility] Comment on above: Performed By: #### L 100.0100, L500.2500, L501.2450, L500.3400 #### [facility] Laboratory [place], [address] Lymphocytes Auto (Unsp spec) [#/Vol]Ordered By: Viraj Dozier on 09-04-2024 Lymphocytes (Bld) [#/Vol] 0.81 10*3/uL Low 0.83-4.51 [facility] Lymphocytes/100 WBC Auto (Un sp spec)Ordered By: Viraj Dozier on 09-04-2024 Lymphocytes/100 WBC (Bld) 14.2 % Low 19-41 [facility] MCV (mean corpuscular volume ) determinationOrdered By: Viraj Dozier on 09-04-2024 MCV (RBC) [Entitic vol] 94.2 fL 81-99 [facility] Mean corpuscular hemoglobin (MCH) determinationOrdered By: Viraj Dozier on 09-04-2024 MCH (RBC) [Entitic mass] 30.7 pg 27.0-32.0 [facility] Mean corpuscular hemoglobin concentration (MCHC) determinationOrdered By: Viraj Dozier on 09-04-2024 MCHC (RBC) [Mass/Vol] 32.6 g/dL 32-36 [facility] Mean platelet volume determi nationOrdered By: Viraj Dozier on 09-04-2024 Platelet mean volume (Bld) [Entitic vol] 9.6 fL 6.2-12.0 [facility] Microscopic analysis of urin e for red blood cells (RBC)Ordered By: Viraj Dozier on 09-04-2024 Urine RBC 0 SEEN /hpf 0-5 [facility] Monocyte percentageOrdered B y: Viraj Dozier on 09-04-2024 Monocytes/100 WBC (Bld) 14.5 % High 0-10 [facility] Mucus LM Ql (Urine sed)Order ed By: Viraj Dozier on 09-04-2024 Mucus Ql (Urine sed) 0 SEEN /hpf [facility] Neutrophil percentageOrdered By: Viraj Dozier on 09-04-2024 Neutrophils/100 WBC (Bld) 68.4 % 47-70 [facility] Nitrite Test strip Ql (U)Ord ered By: Viraj Dozier on 09-04-2024 Nitrite Ql (U) Positive High Negative [facility] Nucleated red blood cell per centageOrdered By: Viraj Dozier on 09-04-2024 Nucleated RBC/100 WBC (Bld) [Ratio] 0 % 0-5 [facility] Platelet countOrdered By: Westley Dozier on 09-04-2024 Platelets (Bld) [#/Vol] 196 10*3/uL 150-450 [facility] Potassium (Unsp spec) [Mass/ Vol]Ordered By: Viraj Dozier on 09-04-2024 Potassium [Moles/Vol] 3.6 mmol/L 3.3-5.1 [facility] Protein Test strip Ql (U)Ord ered By: Viraj Dozier on 09-04-2024 Protein Ql (U) Negative Negative [facility] RBC Auto (Bld) [#/Vol]Ordere d By: Virja Dozier on 09-04-2024 RBC (Bld) [#/Vol] 3.42 10*6/uL Low 4.2-5.4 [facility] Serum creatinine measurement (mass/volume)Ordered By: Viraj Dozier on 09-04-2024 Creatinine [Mass/Vol] 1.07 mg/dL 0.70-1.20 [facility] Serum globulin measurementOr dered By: Viraj Dozier on 09-04-2024 Globulin (S) [Mass/Vol] 2.6 g/dL 2.2-4.2 [facility] Serum glucose measurement (m ass/volume)Ordered By: Viraj Dozier on 09-04-2024 Glucose [Mass/Vol] 114 mg/dL High 70-99 [facility] Serum or plasma alanine adler otransferase (ALT) measurementOrdered By: Viraj Dozier on 09-04-2024 ALT [Catalytic activity/Vol] 8 U/L <35 [facility] Serum or plasma albumin norman urement (mass/volume)Ordered By: Viraj Dozier on 09-04-2024 Albumin [Mass/Vol] 4.1 g/dL 3.4-4.8 [facility] Serum or plasma alkaline edna sphatase measurementOrdered By: Viraj Dozier on 09-04-2024 ALP [Catalytic activity/Vol] 84 U/L 35-104 [facility] Serum or plasma calcium norman urement (mass/volume)Ordered By: Viraj Dozier on 09-04-2024 Calcium [Mass/Vol] 9.2 mg/dL 7.6-11.0 [facility] Serum or plasma urea nitroge n measurement (mass/volume)Ordered By: Viraj Dozier on 09-04-2024 Urea nitrogen [Mass/Vol] 25 mg/dL High 4-19 [facility] Sodium levelOrdered By: Keon Dozier on 09-04-2024 Sodium [Moles/Vol] 140 mmol/L 133-145 [facility] Total proteinOrdered By: Carmelo Dozier on 09-04-2024 Protein [Mass/Vol] 6.6 g/dL 5.9-8.4 [facility] Urinalysis, Completeon 09-04 BACTERIA 2+ /hpf Normal None Seen [facility] Comment on above: Order Comment: UNK Performed By: #### L 505.5000, L3410.9998 #### [facility] Laboratory [address] [place], [address] WBC 0-5 SEEN Normal 0-5 [facility] Comment on above: Order Comment: UNK Performed By: #### L 505.5000, L3410.9998 #### [facility] Laboratory [address] [place], [address] EPI,SQUAMOUS 0 SEEN Normal 5-10 [facility] Comment on above: Order Comment: UNK Performed By: #### L 505.5000, L3410.9998 #### [facility] Laboratory [address] [place], [address] Mucus Ql (Urine sed) 0 SEEN Normal [facility] Comment on above: Order Comment: UNK Performed By: #### L 505.5000, L3410.9998 #### [facility] Laboratory [address] [place], [place], [address] RBC 0 SEEN Normal 0-5 [facility] Comment on above: Order Comment: UNK Performed By: #### L 505.5000, L3410.9998 #### [facility] [address] [place], [place], [address] Urine blood detectionOrdered By: Viraj Dozier on 09-04-2024 Urine Occult Blood 10 /ul High Negative [facility] Urine clarityOrdered By: Carmelo Dozier on 09-04-2024 Clarity (U) Clear Clear [facility] Urine color determinationOrd ered By: Viraj Dozier on 09-04-2024 Color (U) Yellow Yellow [facility] Urine leukocyte esterase det ection by dipstickOrdered By: Viraj Dozier on 09-04-2024 Leukocyte esterase Test strip Ql (U) 25 /ul High Negative [facility] Urine pHOrdered By: Viraj orellana on 09-04-2024 pH (U) 7.0 [pH] 5.0 - 8.0 [facility] Urine sediment bacteria coun t by microscopy (number/high power field)Ordered By: Viraj Dozier on 09-04-2024 Bacteria LM.HPF (Urine sed) [#/Area] 2 /[HPF] None Seen [facility] Urine specific gravity measu rementOrdered By: Viraj Dozier on 09-04-2024 Specific gravity (U) [Rel density] 1.010 1.002-1.030 [facility] Urobilinogen Ql (U)Ordered B y: Viraj Dozier on 09-04-2024 Urine Urobilinogen Normal mg/dl Normal [facility] White blood cell (WBC) count Ordered By: Viraj Dozier on 09-04-2024 WBC (Bld) [#/Vol] 5.7 10*3/uL 4.4-11.0 [facility] White blood cell countOrdere d By: Viraj Dozier on 09-04-2024 Urine WBC 0-5 SEEN /hpf 0-5 [facility] CNPNon 2024 CNPN Telephone ([facility]) -------- KANDI CORREIA ([id number]) 1945 F Date Time Provider Department 08/31/24 JALYN SMITH During your visit today, we recorded the following information about you: Susana Fisher RN 2024 3:58 PM Signed Patient's daughter calls and states that patient received the Shingrix and RSV vaccination at [facility]. Pharmacy is recommending patient get a pneumonia and another COVID vaccination. Patient has appointment with pharmacy next Thursday afternoon. Daughter asking if PCP recommends this as well? Please review and advise, SANDRA Fuentes William J, MD 2024 4:21 PM Signed yes Aurelia Rose MA 2024 4:55 PM Signed Daughter informed. Aurelia Rose MA Allergies As of Date: 2024 Noted Allergy Reaction LISINOPRIL 12/26/2016 14 - Other: See Comments Comments: cough LYRICA (PREGABALIN) 01/13/2019 7 - Swelling Date Reviewed: 01/06/2024 Reviewed by: Staci Zamorano LPN - Fully Assessed Reason for Visit: Patient Question [8058] Prescriptions as of 2024 - oxybutynin XL (DITROPAN XL) 5 mg 24 hr tablet Take 1 tablet by mouth once daily. - rOPINIRole (REQUIP) 0.5 mg tablet Take 3 tablets by mouth daily at bedtime. - metoprolol succinate ER (TOPROL XL) 50 mg 24 hr tablet Take 1 tablet by mouth once daily. Hold if HR is less than 50 or systolic BP is less than 100 - rOPINIRole (REQUIP) 0.5 mg tablet Take 3 tablets by mouth daily at bedtime. - oxybutynin XL (DITROPAN XL) 5 mg 24 hr tablet Take 1 tablet by mouth once daily. - hydroCHLOROthiazide 12.5 mg capsule Take 2 capsules by mouth once daily. - sertraline (ZOLOFT) 50 mg tablet Take 1 tab once a day. - Magnesium Oxide 500 mg magnesium tab Take 1 tablet by mouth once daily. - mpnsphjrma-wrmukoep-liho oterol (BREZTRI AEROSPHERE) 160-9-4.8 mcg/actuation HFA aerosol inhaler Inhale 2 Puffs as instructed two times a day. - gabapentin (NEURONTIN) 100 mg capsule Take 1 capsule by mouth three times a day for 180 days. - fluticasone (FLONASE) 50 mcg/actuation nasal spray USE 1 SPRAY IN EACH NOSTRIL ONE TIME DAILY - baclofen 10 mg tablet Take 1 tablet by mouth three times a day. - albuterol HFA (VENTOLIN HFA) 90 mcg/actuation inhaler Inhale 2 Puffs as instructed every 4 hours as needed for wheezing/shortness of breath. - metFORMIN (GLUCOPHAGE) 500 mg tablet Take 1 tablet by mouth daily with breakfast. - ferrous sulfate 325 mg (65 mg iron) tablet Take 1 tablet by mouth two times a day with meals. - traMADol (ULTRAM) 50 mg tablet Take 50 mg by mouth two times a day. - Lancets lancets Test blood sugar(s) 2 times daily. Dx: Type 2 DM - Controlled E11.9 Insulin: No - blood sugar diagnostic (BLOOD GLUCOSE TEST) test strip Test blood sugar(s) 2 times daily. 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] 08/16/2020 Pain, neck [M54.2] 03/31/2016 08/20/2016 Acute midline thoracic back pain [M54.6] 03/31/2016 08/20/2016 Recurrent major depression in partial remission*07/16/2016 Essential hypertension [I10] 07/25/2016 HTN (hypertension) [I10] 08/20/2016 Class 2 obesity with body mass index (BMI) of 3*06/17/2017 03/09/2024 Obesity, Class II, BMI 35-39.9 [E66.812] 12/02/2017 04/02/2018 On home oxygen therapy [Z99.81] 04/02/2018 Type 2 diabetes mellitus without complication, *05/13/2018 Thoracic aortic aneurysm (HCC) [I71.20] 12/23/2018 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] 12/30/2018 09/21/2023 Skin ulcer (HCC) [L98.499] 02/09/2019 08/16/2020 MICHEL (obstructive sleep apnea) [G47.33] 05/24/2019 Chronic respiratory failure with hypoxia (HCC) *05/24/2019 Centrilobular emphysema (HCC) [J43.2] 10/01/2022 Obesity, Class III, BMI 40-49.9 (morbid obesity*08/17/2021 10/01/2022 NYHA class 2 and ACC/AHA stage C acute on chron*12/10/2022 Abdominal aortic aneurysm (AAA) without rupture*09/09/2023 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 Normal [facility] Comment on above: Order Comment: [id number] TRAMADOL Result Comment: TEST RESULTS LIMITS Tramadol, Urine Tramadol Positive Edyjyw=822 Tramadol Conf, [place], [place] 2038 ng/mL Whmysr=158 Tramadol detected; this finding can be consistent with use of medications that include Ultram, Topalgic, Tradol, Zydol, or generic formulations. Drugs listed are national account representative of common sources of the compound detected and are not intended to include all possible sources. Please Note: Drug test results should be interpreted in the context of clinical information. Patient metabolic variables, specific drug chemistry, and specimen characteristics can affect test outcome. Technical consultation is available if a test result is inconsistent with an expected outcome. Email: [email or web address] TESTING PERFORMED AT [facility]. ORIGINAL REPORT ON FILE IN LAB CONTAINS ADDITIONAL TEST SITE INFORMATION. Performed By: #### L 3410.9998 #### [facility] [address] [place] [address]. [place], [address] L3410.9998on [facility]-12-2024 [facility] Comment on above: Order Comment: ADD O N PLEASE IF ABLE-SWRIGHT [id number] BUPENORPHINE Result Comment: TEST RESULTS LIMITS Buprenorphine, Urine Negative ng/mL Cutoff=10 TESTING PERFORMED AT [facility]. ORIGINAL REPORT ON FILE IN LAB CONTAINS ADDITIONAL TEST SITE INFORMATION. Performed By: #### L 3410.9998 #### [facility] [address] [facility] [place], [address] L3410.9998on 08-04-2024 [facility] Misc. COMMENT Normal . [facility] Comment on above: Order Comment: [id number] MEDTOX URINE Result Comment: Test Ordered: [id number] 6+Oxycodone-Bund Amphetamines, Urine Negative ng/mL UI Reference Range: [id number] Amphetamine test includes Amphetamine and Methamphetamine. Barbiturate Negative ng/mL UI Reference Range: Eopjmt=878 Benzodiazepines Negative ng/mL UI Reference Range: Rbllxa=259 Cannabinoids Negative ng/mL UI Reference Range: Cutoff=20 Cocaine (Metabolite) Negative ng/mL UI Reference Range: Cdgnbd=064 Opiates Negative ng/mL UI Reference Range: Uocbdw=584 Opiate test includes Codeine, Morphine, Hydromorphone, Hydrocodone. Oxycodone/Oxymorphone, Urine Negative ng/mL UI Reference Range: Eifhwd=380 Test includes Oxycodone and Oxymorphone Effective September 05, 2024, this test will be discontinued. Please contact your [facility] national account representative for suggested replacement test options. Performed at: [facility] [place] [place], [place] [id number] Manager Integrated: Tripp Bronson PhD, Phone: [phone] Performed at: [address] [id number] Manager Integrated: Nadir Cartwright PhD, Phone: [phone] Performed By: #### L 505.5000, L3410.9998 #### [facility] [address] [place] [address]. [place], [address] Amphetamines Screen method > 1000 ng/mL Ql (U)Ordered By: Chin Paul on 08-02-2024 Amphetamines Ql (U) Negative <1000 ng/mL [facility] Urine Barbiturates Screen Negative < 200 ng/mL [facility] Methadone, urineOrdered By: Chin Paul on 08-02-2024 Urine Methadone Screen Negative < 300 ng/mL [facility] No Panel InformationOrdered By: Chin Paul on 08-02-2024 Urine Buprenorphine Qualitative Negative < 200 ng/mL [facility] Urine Oxycodone Screen Negative < 100 ng/mL [facility] Quantitative urine opiates m easurementOrdered By: Chin Paul on 08-02-2024 Opiates Ql (U) Negative < 300 ng/mL [facility] Urine Drug Screen (VISTA)on 08-02-2024 AMPHETAMINES Negative Normal <1000 ng/mL [facility] Comment on above: Order Comment: UNK Performed By: #### L 505.5000, L3410.9998 #### [facility] [address] [place], [address] BARBITIURATES Negative Normal < 200 ng/mL [facility] Comment on above: Order Comment: UNK Performed By: #### L 505.5000, L3410.9998 #### [facility] [address] [facility] [address] BENZODIAZIPINE Negative Normal < 200 ng/mL [facility] Comment on above: Order Comment: UNK Performed By: #### L 505.5000, L3410.9998 #### [facility] [address] [place] [address] BUP Ur Drug Scr Negative Normal < 200 ng/mL [facility] Comment on above: Order Comment: UNK Performed By: #### L 505.5000, L3410.9998 #### [facility] [address] [place], [address] COCAINE Negative Normal < 300 ng/mL [facility] Comment on above: Order Comment: UNK Performed By: #### L 505.5000, L3410.9998 #### [facility] [address] [place], [address] Fentanyl Negative Normal [facility] Comment on above: Order Comment: UNK Performed By: #### L 505.5000, L3410.9998 #### [facility] [address] [facility] [address] METHADONE Negative Normal < 300 ng/mL [facility] Comment on above: Order Comment: UNK Performed By: #### L 505.5000, L3410.9998 #### [facility] [address] [place], [address] OPIATES Negative Normal < 300 ng/mL [facility] Comment on above: Order Comment: UNK Performed By: #### L 505.5000, L3410.9998 #### [facility] [address] [place], [address] OXYCODONE Negative Normal < 100 ng/mL [facility] Comment on above: Order Comment: UNK Performed By: #### L 505.5000, L3410.9998 #### [facility] [address] [place], [address] PCP Negative Normal < 25 ng/mL [facility] Comment on above: Order Comment: UNK Performed By: #### L 505.5000, L3410.9998 #### [facility] [address] [place], [address] THC Negative Normal < 50 ng/mL [facility] Comment on above: Order Comment: UNK Performed By: #### L 505.5000, L3410.9998 #### [facility] [address] [place], [address] Urine benzodiazepine levelOr dered By: Chin Basali on 08-02-2024 Benzodiazepines Ql (U) Negative < 200 ng/mL [facility] Urine cocaine levelOrdered B y: Chin Basali on 08-02-2024 Cocaine Ql (U) Negative < 300 ng/mL [facility] Urine orzir-8-cgmvkxyfmxlkyx abinol (THC) measurementOrdered By: Chin Basali on 08-02-2024 Cannabinoids Screen Ql (U) Negative < 50 ng/mL [facility] Urine phencyclidine (PCP) de tectionOrdered By: Chin Basali on 08-02-2024 Phencyclidine Ql (U) Negative < 25 ng/mL [facility] fentaNYL Screen Ql (U)Ordere d By: Chin Basali on 08-02-2024 Urine Fentanyl Screen Negative [facility] Vazquez [facility]20[facility]ARG[facility]ETWS[facility] -------- KANDI CORREIA ([id number]) 1945 F Date Time Provider Department 04/14/24 LUIS JALYN Islas [facility] During your visit today, we recorded the following information about you: Judy Borrego LPN 04/14/2024 2:48 PM Signed ----- Message from Casandra Kinsey sent at 04/14/2024 12:42 PM EST ----- Anemia persists but is stable. Magnesium is ok. Judy Borrego LPN 04/14/2024 2:49 PM Signed Pt notified with results and would like to know if she is to continue to take (1) magnesium daily. This is what she was instructed to do earlier. Please advise pt. .NICOLAS Cervantes Laurie Lynn, LPN 04/14/2024 2:52 PM Signed Pt notified thru MyChart to continue Magnesium. Judy Borrego LPN Allergies As of Date: 04/14/2024 Noted Allergy Reaction LISINOPRIL 12/26/2016 14 - Other: See Comments Comments: cough LYRICA (PREGABALIN) 01/13/2019 7 - Swelling Date Reviewed: 01/06/2024 Reviewed by: Staci Zamorano LPN - Fully Assessed Reason for Visit: Results [95] Prescriptions as of 04/14/2024 - fluticasone (FLONASE) 50 mcg/actuation nasal spray USE 1 SPRAY IN EACH NOSTRIL ONE TIME DAILY - Magnesium Oxide 500 mg magnesium tab Take 1 tablet by mouth once daily. - baclofen 10 mg tablet Take 1 tablet by mouth three times a day. - oxybutynin XL (DITROPAN XL) 5 mg 24 hr tablet Take 1 tablet by mouth once daily. - rOPINIRole (REQUIP) 0.5 mg tablet Take 3 tablets by mouth daily at bedtime. - gzjcleijfb-dmtwsmrr-hsxl oterol (BREZTRI) 160-9-4.8 mcg/actuation HFA aerosol inhaler Inhale 2 Puffs as instructed two times a day. - albuterol HFA (VENTOLIN HFA) 90 mcg/actuation inhaler Inhale 2 Puffs as instructed every 4 hours as needed for wheezing/shortness of breath. - metFORMIN (GLUCOPHAGE) 500 mg tablet Take 1 tablet by mouth daily with breakfast. - gabapentin (NEURONTIN) 100 mg capsule Take 1 capsule by mouth three times a day for 180 days. - ferrous sulfate 325 mg (65 mg iron) tablet Take 1 tablet by mouth two times a day with meals. - hydroCHLOROthiazide 12.5 mg capsule Take 2 capsules by mouth once daily. - sertraline (ZOLOFT) 50 mg tablet Take 1 tab once a day. - traMADol (ULTRAM) 50 mg tablet Take 50 mg by mouth two times a day. - metoprolol succinate ER (TOPROL XL) 50 mg 24 hr tablet Take 1 tablet by mouth once daily. Hold if HR is less than 50 or systolic BP is less than 100 - Lancets lancets Test blood sugar(s) 2 times daily. Dx: Type 2 DM - Controlled E11.9 Insulin: No - blood sugar diagnostic (BLOOD GLUCOSE TEST) test strip Test blood sugar(s) 2 times daily. 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] 08/16/2020 Pain, neck [M54.2] 03/31/2016 08/20/2016 Acute midline thoracic back pain [M54.6] 03/31/2016 08/20/2016 Recurrent major depression in partial remission*07/16/2016 Essential hypertension [I10] 07/25/2016 HTN (hypertension) [I10] 08/20/2016 Class 2 obesity with body mass index (BMI) of 3*06/17/2017 03/09/2024 Obesity, Class II, BMI 35-39.9 [E66.812] 12/02/2017 04/02/2018 On home oxygen therapy [Z99.81] 04/02/2018 Type 2 diabetes mellitus without complication, *05/13/2018 Thoracic aortic aneurysm (HCC) [I71.20] 12/23/2018 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] 12/30/2018 09/21/2023 Skin ulcer (HCC) [L98.499] 02/09/2019 08/16/2020 MICHEL (obstructive sleep apnea) [G47.33] 05/24/2019 Chronic respiratory failure with hypoxia (HCC) *05/24/2019 Centrilobular emphysema (HCC) [J43.2] 10/01/2022 Obesity, Class III, BMI 40-49.9 (morbid obesity*08/17/2021 10/01/2022 NYHA class 2 and ACC/AHA stage C acute on chron*12/10/2022 Abdominal aortic aneurysm (AAA) without rupture*09/09/2023 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 03/09/2024 Encounter Status:Closed by JUDY BORREGO on 04/14/24 Normal [facility] CBC W Auto Differential pane l (Bld)on 04-13-2024 Basophils (Bld) [#/Vol] 0.06 10*3/uL Normal <0.11 [facility] Comment on above: Order Comment: Speci men Type: BLOOD SPECIMENOrdering Facility: [facility] Address: [address] [place] [address] Performed By: #### 5 7021-8 ####[facility] LABCLIA [id number] [place] [address] [place] Basophils/100 WBC (Bld) 1.3 % Normal [facility] Comment on above: Order Comment: Speci men Type: BLOOD SPECIMENOrdering Facility: [facility] Address: [address] [place] [address] Performed By: #### 5 7021-8 ####[facility] LABCLIA [id number] [place] [address] [place] Differential cell count method Nom (Bld) Auto Normal [facility] Comment on above: Order Comment: Speci men Type: BLOOD SPECIMENOrdering Facility: [facility] Address: [address] [place] [address] Performed By: #### 5 7021-8 ####[facility] LABCLIA [id number] [place] [address] [place] Eosinophils (Bld) [#/Vol] 0.13 10*3/uL Normal <0.46 [facility] Comment on above: Order Comment: Speci men Type: BLOOD SPECIMENOrdering Facility: [facility] Address: [address] [place] [address] Performed By: #### 5 7021-8 ####[facility] LABCLIA [id number] [place] [address] [place] Eosinophils/100 WBC (Bld) 2.7 % Normal [facility] Comment on above: Order Comment: Speci men Type: BLOOD SPECIMENOrdering Facility: [facility] Address: [address] [place] [address] Performed By: #### 5 7021-8 ####[facility] LABCLIA [id number] [place] [address] [place] Erythrocyte distribution width (RBC) [Ratio] 13.2 % Normal 11.5-15.0 [facility] Comment on above: Order Comment: Speci men Type: BLOOD SPECIMENOrdering Facility: [facility] Address: [address] [place] [address] Performed By: #### 5 7021-8 ####[facility] LABCLIA [id number] [place] [address] [place] Hematocrit (Bld) [Volume fraction] 36.1 % Normal 36.0-46.0 [facility] Comment on above: Order Comment: Speci men Type: BLOOD SPECIMENOrdering Facility: [facility] Address: [address] [place] [address] Performed By: #### 5 7021-8 ####[facility] LABCLIA [id number] [place] [address] [place] Hemoglobin (Bld) [Mass/Vol] 11.0 g/dL Low 11.5-15.5 [facility] Comment on above: Order Comment: Speci men Type: BLOOD SPECIMENOrdering Facility: [facility] Address: [address] [place] [address] Performed By: #### 5 7021-8 ####[facility]IA [id number] [place] [address] [place] Immature granulocytes (Bld) [#/Vol] 10*3/uL Normal <0.10 [facility] Comment on above: Order Comment: Speci men Type: BLOOD SPECIMENOrdering Facility: [facility] Address: [address] [place] [address] Performed By: #### 5 7021-8 ####[facility] [id number] [place] [address] [place] Immature granulocytes/100 WBC (Bld) 0.0 % Normal [facility] Comment on above: Order Comment: Speci men Type: BLOOD SPECIMENOrdering Facility: [facility] Address: [address] [place] [address] Performed By: #### 5 7021-8 ####[facility] LABCLIA [id number] [place] [address] [place] Lymphocytes (Bld) [#/Vol] 0.78 10*3/uL Low 1.00-4.00 [facility] Comment on above: Order Comment: Speci men Type: BLOOD SPECIMENOrdering Facility: [facility] Address: [address] [place] [address] Performed By: #### 5 7021-8 ####[facility]CLIA [id number] [place] [address] [place] Lymphocytes/100 WBC (Bld) 16.4 % Normal [facility] Comment on above: Order Comment: Speci men Type: BLOOD SPECIMENOrdering Facility: [facility] Address: [address] [place] [address] Performed By: #### 5 7021-8 ####[facility] LABCLIA [id number] [place] [address] [place] MCH (RBC) [Entitic mass] 29.6 pg Normal 26.0-34.0 [facility] Comment on above: Order Comment: Speci men Type: BLOOD SPECIMENOrdering Facility: [facility] Address: [address] [place] [address] Performed By: #### 5 7021-8 ####[facility] LABCLIA [id number] [place] [address] [place] MCHC (RBC) [Mass/Vol] 30.5 g/dL Normal 30.5-36.0 [facility] Comment on above: Order Comment: Speci men Type: BLOOD SPECIMENOrdering Facility: [facility] Address: [address] [place] [address] Performed By: #### 5 7021-8 ####[facility]CLIA [id number] [place] [address] [place] MCV (RBC) [Entitic vol] 97.3 fL Normal 80.0-100.0 [facility] Comment on above: Order Comment: Speci men Type: BLOOD SPECIMENOrdering Facility: [facility] Address: [address] [place] [address] Performed By: #### 5 7021-8 ####[facility] LABCLIA [id number] [place] [address] [place] Monocytes (Bld) [#/Vol] 0.53 10*3/uL Normal <0.87 [facility] Comment on above: Order Comment: Speci men Type: BLOOD SPECIMENOrdering Facility: [facility] Address: [address] [place] [address] Performed By: #### 5 7021-8 ####[facility] LABCLIA [id number] [place] [address] [place] Monocytes/100 WBC (Bld) 11.2 % Normal [facility] Comment on above: Order Comment: Speci men Type: BLOOD SPECIMENOrdering Facility: [facility] Address: [address] [place] [address] Performed By: #### 5 7021-8 ####[facility] LABCLIA [id number] [place] [address] [place] Neutrophils (Bld) [#/Vol] 3.25 10*3/uL Normal 1.45-7.50 [facility] Comment on above: Order Comment: Speci men Type: BLOOD SPECIMENOrdering Facility: [facility] Address: [address] [place] [address] Performed By: #### 5 7021-8 ####[facility]CLIA [id number] [place] [address] [place] Neutrophils/100 WBC (Bld) 68.4 % Normal [facility] Comment on above: Order Comment: Speci men Type: BLOOD SPECIMENOrdering Facility: [facility] Address: [address] [place] [address] Performed By: #### 5 7021-8 ####[facility] LABCLIA [id number] [place] [address] [place] Nucleated RBC (Bld) [#/Vol] 10*3/uL Normal <0.01 [facility] Comment on above: Order Comment: Speci men Type: BLOOD SPECIMENOrdering Facility: [facility] Address: [address] [place] [address] Performed By: #### 5 7021-8 ####[facility]CLIA [id number] [place] [address] [place] Nucleated RBC/100 WBC (Bld) [Ratio] 0.0 /100 WBC Normal [facility] Comment on above: Order Comment: Speci men Type: BLOOD SPECIMENOrdering Facility: [facility] Address: [address] [place] [address] Performed By: #### 5 7021-8 ####[facility] LABIA [id number] [place] [address] [place] Platelet mean volume (Bld) [Entitic vol] 9.7 fL Normal 9.0-12.7 [facility] Comment on above: Order Comment: Speci men Type: BLOOD SPECIMENOrdering Facility: [facility] Address: [address] [place] [address] Performed By: #### 5 7021-8 ####[facility] LABIA [id number] [place] [address] [place] Platelets (Bld) [#/Vol] 227 10*3/uL Normal 150-400 [facility] Comment on above: Order Comment: Speci men Type: BLOOD SPECIMENOrdering Facility: [facility] Address: [address] [place] [address] Performed By: #### 5 7021-8 ####[facility]CLIA [id number] [place] [address] [place] RBC (Bld) [#/Vol] 3.71 10*6/uL Low 3.90-5.20 [facility] Comment on above: Order Comment: Speci men Type: BLOOD SPECIMENOrdering Facility: [facility] Address: [address] [place] [address] Performed By: #### 5 7021-8 ####[facility] LABCLIA [id number] [place] [address] [place] WBC (Bld) [#/Vol] 4.75 10*3/uL Normal 3.70-11.00 [facility] Comment on above: Order Comment: Speci men Type: BLOOD SPECIMENOrdering Facility: [facility] Address: [address] [place] [address] Performed By: #### 5 7021-8 ####[facility] LABCLIA [id number] [place] [address] [place] Magnesium SerPl-mCncon 04-13 Magnesium [Mass/Vol] 1.8 mg/dL Normal 1.7-2.3 [facility] Comment on above: Order Comment: Speci men Type: BLOOD SPECIMENOrdering Facility: [facility] Address: [address] [place] [address] Performed By: #### 1 9123-9 ####[facility] LABIA [id number] [place] [address] [place] CNPSofia 03-29-2024 [facility] -------- KANDI CORREIA ([id number]) 1945 F Date Time Provider Department 03/29/24 ZACKERY MAYFIELDROSAURA During your visit today, we recorded the following information about you: Kasey Hull MA 03/29/2024 3:27 PM [facility] needs clarification for oxygen. Does she need portable concentrator or tank. Is POC to be continuous? If portable will need the dose. Also need order for stationary tank Staci Zamorano LPN 03/30/2024 8:39 AM Signed Updated order faxed. Staci Zamorano LPN Allergies As of Date: 03/29/2024 Noted Allergy Reaction LISINOPRIL 12/26/2016 14 - Other: See Comments Comments: cough LYRICA (PREGABALIN) 01/13/2019 7 - Swelling Date Reviewed: 01/06/2024 Reviewed by: Staci Zamoarno LPN - Fully Assessed Primary Visit Diagnosis:Acute and chronic respiratory failure with hypoxia (HCC) [J96.21] Order(s):OXYGEN FOR HOME USE [[id number]] Order #: [id number] Prescriptions as of 03/30/2024 - Magnesium Oxide 500 mg magnesium tab Take 1 tablet by mouth once daily. - baclofen 10 mg tablet Take 1 tablet by mouth three times a day. - oxybutynin XL (DITROPAN XL) 5 mg 24 hr tablet Take 1 tablet by mouth once daily. - rOPINIRole (REQUIP) 0.5 mg tablet Take 3 tablets by mouth daily at bedtime. - mxvduspxul-vjdmagde-yxbd oterol (BREZTRI) 160-9-4.8 mcg/actuation HFA aerosol inhaler Inhale 2 Puffs as instructed two times a day. - albuterol HFA (VENTOLIN HFA) 90 mcg/actuation inhaler Inhale 2 Puffs as instructed every 4 hours as needed for wheezing/shortness of breath. - metFORMIN (GLUCOPHAGE) 500 mg tablet Take 1 tablet by mouth daily with breakfast. - gabapentin (NEURONTIN) 100 mg capsule Take 1 capsule by mouth three times a day for 180 days. - ferrous sulfate 325 mg (65 mg iron) tablet Take 1 tablet by mouth two times a day with meals. - hydroCHLOROthiazide 12.5 mg capsule Take 2 capsules by mouth once daily. - sertraline (ZOLOFT) 50 mg tablet Take 1 tab once a day. - traMADol (ULTRAM) 50 mg tablet Take 50 mg by mouth two times a day. - metoprolol succinate ER (TOPROL XL) 50 mg 24 hr tablet Take 1 tablet by mouth once daily. Hold if HR is less than 50 or systolic BP is less than 100 - fluticasone (FLONASE) 50 mcg/actuation nasal spray USE 1 SPRAY IN EACH NOSTRIL ONCE DAILY - Lancets lancets Test blood sugar(s) 2 times daily. Dx: Type 2 DM - Controlled E11.9 Insulin: No - blood sugar diagnostic (BLOOD GLUCOSE TEST) test strip Test blood sugar(s) 2 times daily. 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] 08/16/2020 Pain, neck [M54.2] 03/31/2016 08/20/2016 Acute midline thoracic back pain [M54.6] 03/31/2016 08/20/2016 Recurrent major depression in partial remission*07/16/2016 Essential hypertension [I10] 07/25/2016 HTN (hypertension) [I10] 08/20/2016 Class 2 obesity with body mass index (BMI) of 3*06/17/2017 03/09/2024 Obesity, Class II, BMI 35-39.9 [E66.812] 12/02/2017 04/02/2018 On home oxygen therapy [Z99.81] 04/02/2018 Type 2 diabetes mellitus without complication, *05/13/2018 Thoracic aortic aneurysm (HCC) [I71.20] 12/23/2018 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] 12/30/2018 09/21/2023 Skin ulcer (HCC) [L98.499] 02/09/2019 08/16/2020 MICHEL (obstructive sleep apnea) [G47.33] 05/24/2019 Chronic respiratory failure with hypoxia (HCC) *05/24/2019 Centrilobular emphysema (HCC) [J43.2] 10/01/2022 Obesity, Class III, BMI 40-49.9 (morbid obesity*08/17/2021 10/01/2022 NYHA class 2 and ACC/AHA stage C acute on chron*12/10/2022 Abdominal aortic aneurysm (AAA) without rupture*09/09/2023 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 Mild diffuse atherosclerotic disease as detailed without hemodynamically significant stenosis. No acute process in the chest, abdomen or pelvis. Electrical Engineering Draftsperson: PSCB Transcribe Date/Time: Oct 14 2023 4:46P Dictated by : GINNY FAULKNER DO This examination was interpreted and the report reviewed and electronically signed by: ANN RUBIO MD on Oct 15 2023 1:07AM [facility] * * *Final Report* * * DATE OF EXAM: Oct 14 2023 2:22PM [facility] 0131 - CTA C/A/P (NONGATED) W IVCON / PROCEDURE REASON: multiple diagnoses * * * * Physician Interpretation * * * * CT ANGIOGRAM OF THE CHEST, ABDOMEN AND PELVIS HISTORY: Follow-up aortic dissection. TECHNIQUE: High-resolution contrast-enhanced helical CT of the chest, abdomen, and pelvis was performed, timed to the arterial phase. 3-D processing was performed by the physician on an independent work station, 3D maximum intensity projection images were created, reviewed and archived. Total of 120 ml of was injected IV during the examination. The study was performed without oral contrast. The patient tolerated the injection without complications. Dose-Length Product (DLP): 1099 mGy*cm. CT Dose Reduction Employed: Automated exposure control(AEC) and iterative recon RESULT: COMPARISON: CTA 04/18/2022. LIMITATIONS: None VASCULATURE: Normal course, contour and caliber of the ascending aorta and arch. Mild mixed atherosclerotic disease involving the aortic root, arch, proximal branch vessels and proximal descending aorta, unchanged. No high-grade focal stenosis. Again demonstrated is a dissection originating in the mid descending thoracic aorta extending to the distal left common iliac artery with opacification of the false lumen. Descending aorta measures 5.2 cm in maximum transverse diameter (302:247), previously 5 cm. Infrarenal aorta measures 4 cm in maximal transverse diameter, unchanged. Celiac axis, SMA, bilateral renal arteries (2 renal arteries on the right and 3 renal arteries on the left), SOO, bilateral common iliac and left external and internal iliac arteries arise from the true lumen. Communication between the true and false lumen noted in the mid descending thoracic aorta and at the origin of the left external iliac artery, unchanged Celiac artery demonstrates no significant focal stenosis. Superior mesenteric artery demonstrates no significant focal stenosis. Inferior mesenteric artery demonstrates no significant focal stenosis. There are two right renal arteries. Right renal artery demonstrates no significant focal stenosis. There are three left renal arteries. Left renal artery demonstrates no significant focal stenosis. RIGHT LEG: Right common iliac artery demonstrates atherosclerotic change without significant focal stenosis. Right external iliac artery is patent with no significant stenosis. Right internal iliac artery patent with mild stenosis at its origin and poststenotic ectasia 1.1 cm, unchanged. Right common femoral artery demonstrates atherosclerotic change without significant focal stenosis. LEFT LEG: Left common iliac artery is aneurysmally dilated at 3.1 cm, previously 2.9 cm. Left external iliac artery is patent with no significant stenosis. Left internal iliac artery patent with mild ectasia 1.2 cm, unchanged. Left common femoral artery demonstrates atherosclerotic change without significant focal stenosis. CHEST: Pulmonary arteries: Normal appearance of the pulmonary arteries without central dilation, truncation, webs,or filling defects. Lines, tubes, and devices: None. Lung parenchyma and airways: Mild-moderate centrilobular emphysema. Bibasilar atelectasis/scarring otherwise, no focal consolidation. No suspicious pulmonary nodules. Central airways are patent. Diffuse bronchial wall thickening. Pleural space: No pleural effusion. No pleural thickening. Lower neck, lymph nodes, and mediastinum: The imaged thyroid gland is normal. No lymphadenopathy in the supraclavicular, axillary, mediastinal, or hilar regions. Calcified mediastinal and right hilar lymph nodes. Heart and pericardium: The cardiac chambers are normal in size. No coronary artery atherosclerotic calcifications are noted, although the study is not optimized for coronary assessment. No pericardial effusion or thickening. Bones and soft tissues: No destructive bone lesion. Degenerative changes. Chest wall is unremarkable. ABDOMEN/PELVIS: Liver: No mass. Biliary: No bile duct dilation. Gallbladder is unremarkable. Spleen: No mass. Calcified granuloma. No splenomegaly. Pancreas: Calcifications in the head and tail, likely sequela of pancreatitis. No mass or duct dilation Adrenals: No mass. Kidneys: Bilateral cysts. Additional subcentimeter low-attenuation lesions are too small to characterize, but unchanged and likely benign. No hydronephrosis. Retroperitoneum: Unremarkable GI tract: No dilation or wall thickening. Lymph nodes: No abdominal or pelvic lymphadenopathy. Mesentery/Peritoneum: No ascites or mass. Pelvis: No mass, ascites or fluid collection. Bones/Soft Tissues: Degenerative changes. [facility] Provider, [facility] - 10/15/2023 * * *Final Report* * * DATE OF EXAM: Oct 14 2023 2:22PM [facility] 0131 - CTA C/A/P (NONGATED) W IVCON / PROCEDURE REASON: multiple diagnoses * * * * Physician Interpretation * * * * CT ANGIOGRAM OF THE CHEST, ABDOMEN AND PELVIS HISTORY: Follow-up aortic dissection. TECHNIQUE: High-resolution contrast-enhanced helical CT of the chest, abdomen, and pelvis was performed, timed to the arterial phase. 3-D processing was performed by the physician on an independent work station, 3D maximum intensity projection images were created, reviewed and archived. Total of 120 ml of was injected IV during the examination. The study was performed without oral contrast. The patient tolerated the injection without complications. Dose-Length Product (DLP): 1099 mGy*cm. CT Dose Reduction Employed: Automated exposure control(AEC) and iterative recon RESULT: COMPARISON: CTA 04/18/2022. LIMITATIONS: None VASCULATURE: Normal course, contour and caliber of the ascending aorta and arch. Mild mixed atherosclerotic disease involving the aortic root, arch, proximal branch vessels and proximal descending aorta, unchanged. No high-grade focal stenosis. Again demonstrated is a dissection originating in the mid descending thoracic aorta extending to the distal left common iliac artery with opacification of the false lumen. Descending aorta measures 5.2 cm in maximum transverse diameter (302:247), previously 5 cm. Infrarenal aorta measures 4 cm in maximal transverse diameter, unchanged. Celiac axis, SMA, bilateral renal arteries (2 renal arteries on the right and 3 renal arteries on the left), SOO, bilateral common iliac and left external and internal iliac arteries arise from the true lumen. Communication between the true and false lumen noted in the mid descending thoracic aorta and at the origin of the left external iliac artery, unchanged Celiac artery demonstrates no significant focal stenosis. Superior mesenteric artery demonstrates no significant focal stenosis. Inferior mesenteric artery demonstrates no significant focal stenosis. There are two right renal arteries. Right renal artery demonstrates no significant focal stenosis. There are three left renal arteries. Left renal artery demonstrates no significant focal stenosis. RIGHT LEG: Right common iliac artery demonstrates atherosclerotic change without significant focal stenosis. Right external iliac artery is patent with no significant stenosis. Right internal iliac artery patent with mild stenosis at its origin and poststenotic ectasia 1.1 cm, unchanged. Right common femoral artery demonstrates atherosclerotic change without significant focal stenosis. LEFT LEG: Left common iliac artery is aneurysmally dilated at 3.1 cm, previously 2.9 cm. Left external iliac artery is patent with no significant stenosis. Left internal iliac artery patent with mild ectasia 1.2 cm, unchanged. Left common femoral artery demonstrates atherosclerotic change without significant focal stenosis. CHEST: Pulmonary arteries: Normal appearance of the pulmonary arteries without central dilation, truncation, webs,or filling defects. Lines, tubes, and devices: None. Lung parenchyma and airways: Mild-moderate centrilobular emphysema. Bibasilar atelectasis/scarring otherwise, no focal consolidation. No suspicious pulmonary nodules. Central airways are patent. Diffuse bronchial wall thickening. Pleural space: No pleural effusion. No pleural thickening. Lower neck, lymph nodes, and mediastinum: The imaged thyroid gland is normal. No lymphadenopathy in the supraclavicular, axillary, mediastinal, or hilar regions. Calcified mediastinal and right hilar lymph nodes. Heart and pericardium: The cardiac chambers are normal in size. No coronary artery atherosclerotic calcifications are noted, although the study is not optimized for coronary assessment. No pericardial effusion or thickening. Bones and soft tissues: No destructive bone lesion. Degenerative changes. Chest wall is unremarkable. ABDOMEN/PELVIS: Liver: No mass. Biliary: No bile duct dilation. Gallbladder is unremarkable. Spleen: No mass. Calcified granuloma. No splenomegaly. Pancreas: Calcifications in the head and tail, likely sequela of pancreatitis. No mass or duct dilation Adrenals: No mass. Kidneys: Bilateral cysts. Additional subcentimeter low-attenuation lesions are too small to characterize, but unchanged and likely benign. No hydronephrosis. Retroperitoneum: Unremarkable GI tract: No dilation or wall thickening. Lymph nodes: No abdominal or pelvic lymphadenopathy. Mesentery/Peritoneum: No ascites or mass. Pelvis: No mass, ascites or fluid collection. Bones/Soft Tissues: Degenerative changes. IMPRESSION (more content not included)... [facility] CTA Chest vessels and Abdomi nal vessels and Pelvis vessels W contrast IVOrdered By: [facility] Provider on 10-15-2023 [facility] CTA Chest vessels and Abdomi nal vessels and Pelvis vessels W contrast Umer 10-14-2023 Radiology Study observation (narrative) [facility] OXIMETRY WITH AMBULATIONon 0 09-30-2023 Karen Vargas RPF T 09/30/2023 12:17 PM RESPIRATORY THERAPY OXIMETRY WITH AMBULATION Oximetry with Ambulation Test for This Encounter O2 Device O2 Adapter NC O2 Flow SpO2% HR Activity Ft Walked (ft) Time (min) Avg Speed (MPH) R/A 88 95 Resting NC 2 94 72 Resting NC 2 88 95 Walking, usual pace 70 2.5 0.32 NC 3 96 78 Resting NC 3 95 93 Walking, usual pace 90 3 0.34 General Information Pulse Oximetry Site Total Time Spent Walking Assistance/O2 Supply Carrier R Index Finger 30 Wheeled Walker NAME: Karen JOSE Vargas PATIENT NAME: Kandi Correia DATE: September 30, 2023 TIME: 12:17 PM Comment: [facility] V[facility]quez 09-24-2023 ANNY Telephone (AGVASACC) -------- TAYLORKANDI ([id number]) 1945 F Date Time Provider Department 09/24/23 YANIV TODD During your visit today, we recorded the following information about you: LavonneAnne Marie 09/24/2023 11:03 AM Signed I have called and spoke to the patient several times to explain and talk over what we can do and what has happened with the testing and possibly getting her to see Dr. Todd out in [place] VS coming to [place]. She wants to go to to see [facility] and for the testing if it cannot be done at the [place] Location. I gave the patient the phone # to the [place] location but she stated it would not go through. I messaged Kasey to ask her to call the patient and schedule something for her. Allergies As of Date: 09/24/2023 Noted Allergy Reaction LISINOPRIL 12/26/2016 14 - Other: See Comments Comments: cough LYRICA (PREGABALIN) 01/13/2019 7 - Swelling Date Reviewed: 09/21/2023 Reviewed by: Brie Newman LPN - Fully Assessed Reason for Visit: Patient Update [1234] Prescriptions as of 09/24/2023 - metoprolol succinate ER (TOPROL XL) 50 mg 24 hr tablet Take 1 tablet by mouth once daily. Hold if HR is less than 50 or systolic BP is less than 100 - oxybutynin XL (DITROPAN XL) 5 mg 24 hr tablet Take 1 tablet by mouth once daily. - metFORMIN (GLUCOPHAGE) 500 mg tablet Take 1 tablet by mouth daily with breakfast. - rOPINIRole (REQUIP) 0.5 mg tablet Take 3 tablets by mouth daily at bedtime. - fluticasone (FLONASE) 50 mcg/actuation nasal spray USE 1 SPRAY IN EACH NOSTRIL ONCE DAILY - budesonide (PULMICORT) 0.5 mg/2 mL nebulizer solution Use 2 mL via nebulizer two times a day. - gabapentin (NEURONTIN) 100 mg capsule Take 1 capsule by mouth three times a day for 180 days. - hydroCHLOROthiazide 12.5 mg capsule Take 2 capsules by mouth once daily. - sertraline (ZOLOFT) 50 mg tablet Take 1 tab once a day. - arformoterol (BROVANA) 15 mcg/2 mL nebulizer solution Inhale 2 mL as instructed every 12 hours. May mix with Budesonide neb twice a day. - ferrous sulfate 325 mg (65 mg iron) tablet Take 1 tablet by mouth twice daily with meals. - baclofen 10 mg tablet Take 1 tablet by mouth three times daily. - albuterol HFA (VENTOLIN HFA) 90 mcg/actuation inhaler Inhale 2 Puffs as instructed every 4 hours as needed for wheezing/shortness of breath. - Lancets lancets Test blood sugar(s) 2 times daily. Dx: Type 2 DM - Controlled E11.9 Insulin: No - blood sugar diagnostic (BLOOD GLUCOSE TEST) test strip Test blood sugar(s) 2 times daily. 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] 08/16/2020 Pain, neck [M54.2] 03/31/2016 08/20/2016 Acute midline thoracic back pain [M54.6] 03/31/2016 08/20/2016 Recurrent major depression in partial remission*07/16/2016 Essential hypertension [I10] 07/25/2016 HTN (hypertension) [I10] 08/20/2016 Class 2 obesity with body mass index (BMI) of 3*06/17/2017 Obesity, Class II, BMI 35-39.9 [E66.9] 12/02/2017 04/02/2018 On home oxygen therapy [Z99.81] 04/02/2018 Type 2 diabetes mellitus without complication, *05/13/2018 Thoracic aortic aneurysm (HCC) [I71.20] 12/23/2018 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] 12/30/2018 09/21/2023 Skin ulcer (HCC) [L98.499] 02/09/2019 08/16/2020 MICHEL (obstructive sleep apnea) [G47.33] 05/24/2019 Chronic respiratory failure with hypoxia (HCC) *05/24/2019 Centrilobular emphysema (HCC) [J43.2] 10/01/2022 Obesity, Class III, BMI 40-49.9 (morbid obesity*08/17/2021 10/01/2022 NYHA class 2 and ACC/AHA stage C acute on chron*12/10/2022 Abdominal aortic aneurysm (AAA) without rupture*09/09/2023 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 Encounter Status:Closed by ANNE MARIE BANERJEE on 09/24/23 [facility] CNOVon 09-21-2023 CNOV Office Visit (AGVASA CC) -------- INGRIDBOLIVARKANDI ([id number]) 1945 F Date Time Provider Department 09/21/23 2:30 PM YANIV TODD During your visit today, we recorded the following information about you: Pulse Blood pressure Weight Height 93/minute 128/80 85.7 kg 1.626 m Yaniv Todd MD 09/21/2023 5:58 PM Signed [facility] [place] [facility]PARTMENT OF VASCULAR SURGERY OUTPATIENT VISIT DATE September 21, 2023 OUTPATIENT VISIT TYPE CONSULTATION PRIMARY CARE PHYSICIAN: Jalyn Smith MD REFERRING PROVIDER: Jalyn Smith [id number] [facility] [id number] Consult requested for an opinion regarding the evaluation and treatment of the above. My final impression and recommendations will be communicated back to the requesting physician by way of the shared medical record or letter via US mail. CHIEF COMPLAINT: Chronic TBAD (5,10) HISTORY OF PRESENT ILLNESS: Kandi Correia is a 78 year old female with a past medical and surgical history as detailed below who presents today for consultation for an opinion regarding management of the above stated chief complaint. Chronic TBAD managed medically since 2019 with medical history of COPD on home o2, HTN, MICHEL, DJD, she is largely nonambulatory utilizes a walker but is only able to mobilize several steps at a time. JERRELL with Dr. Perry 2020, Last CTA 04/18/22 showing max dTAAA degeneration of 5 cm with infrarenal AAA 3.6 cm. She recently underwent a noncontrasted CT scan of the abdomen pelvis on 08/28/2023 which showed her infrarenal aorta was 4.2 cm. The scan was obtained when she presented to the emergency department with abdominal chest and back pain that was aggravated with breathing and the patient was found to have a pneumonia. Otherwise she denies any ongoing chest back or abdominal pain. She has no rest pain to the lower extremities, or lower extremity edema. She is a former smoker no other diagnosed aneurysms and no history of CVA, TIA, or heart attack. MEDICATIONS: metoprolol succinate ER (TOPROL XL) 50 mg 24 hr tablet Take 1 tablet by mouth once daily. Hold if HR is less than 50 or systolic BP is less than 100 oxybutynin XL (DITROPAN XL) 5 mg 24 hr tablet Take 1 tablet by mouth once daily. metFORMIN (GLUCOPHAGE) 500 mg tablet Take 1 tablet by mouth daily with breakfast. rOPINIRole (REQUIP) 0.5 mg tablet Take 3 tablets by mouth daily at bedtime. fluticasone (FLONASE) 50 mcg/actuation nasal spray USE 1 SPRAY IN EACH NOSTRIL ONCE DAILY budesonide (PULMICORT) 0.5 mg/2 mL nebulizer solution Use 2 mL via nebulizer two times a day. gabapentin (NEURONTIN) 100 mg capsule Take 1 capsule by mouth three times a day for 180 days. hydroCHLOROthiazide 12.5 mg capsule Take 2 capsules by mouth once daily. sertraline (ZOLOFT) 50 mg tablet Take 1 tab once a day. arformoterol (BROVANA) 15 mcg/2 mL nebulizer solution Inhale 2 mL as instructed every 12 hours. May mix with Budesonide neb twice a day. ferrous sulfate 325 mg (65 mg iron) tablet Take 1 tablet by mouth twice daily with meals. baclofen 10 mg tablet Take 1 tablet by mouth three times daily. albuterol HFA (VENTOLIN HFA) 90 mcg/actuation inhaler Inhale 2 Puffs as instructed every 4 hours as needed for wheezing/shortness of breath. Lancets lancets Test blood sugar(s) 2 times daily. Dx: Type 2 DM - Controlled E11.9 Insulin: No (Patient taking differently: Test blood sugar(s) 2 times daily. Dx: Type 2 DM - Controlled E11.9 Insulin: No Takes blood sugar once daily) blood sugar diagnostic (BLOOD GLUCOSE TEST) test strip Test blood sugar(s) 2 times daily. Dx: Type 2 DM - Controlled E11.9 Insulin: No (Patient taking differently: Test blood sugar(s) 2 times daily. Dx: Type 2 DM - Controlled E11.9 Insulin: No Takes blood sugar once daily) COMPOUNDED PRESCRIPTION Oxygen via nasal canula 2 L N/C DX: copd and hypoxia (Patient taking differently: Oxygen via nasal canula 2 L N/C DX: copd and hypoxia Uses O2 at 3 l/m via NC) COMPOUNDED PRESCRIPTION Lightweight portable oxygen DX: copd, 2 L nc continuously (Patient taking differently: Lightweight portable oxygen DX: copd, 2 L nc continuously Uses at 3 l/m via NC) iv contrast (will be provided with radiology test) CTA ABD/PEL - No IV access, insert saline lock prior to the sedation, infusion, injection for imaging exam. Discontinue saline lock post exam. If Pt. has a central line or IVAD, may access for administration according to line specific nursing protocol. Once exam is complete flush line and de-access according to line specific nursing protocol in the CT contrast administration guidelines link. SOCIAL HISTORY: Social History Tobacco Use Smoking status: Former Packs/day: 0.50 Years: 45.00 Additional pack years: 0.00 Total pack years: 22.50 Types: Cigarettes Start date: 08/30/1966 Quit date: 01/29/2012 (more content not included)... [facility] XR Chest PA and Lateralon IMPRESSION: Atelectasis or fibrosis at the left base is stable. Mild infrahilar infiltrate on the right. Follow-up recommended Electrical Engineering Draftsperson: [email or web address] Transcribe Date/Time: Sep 09 2023 10:18A Dictated by : CLYDE RUIZ MD This examination was interpreted and the report reviewed and electronically signed by: CLYDE RUIZ MD on Sep 09 2023 10:20AM [facility] OF RADIOLOG[facility] * * *Final Report* * * DATE OF EXAM: Sep 08 2023 3:13PM WOX [id number] - XR CHEST 2V FRONTAL/LAT / PROCEDURE REASON: Bacterial pneumonia * * * * Physician Interpretation * * * * EXAMINATION: CHEST RADIOGRAPH (2 VIEW FRONTAL & LATERAL) CLINICAL HISTORY: Bacterial pneumonia MQ: XC2_6 EXAM DATE/TIME: 09/08/2023 3:13 PM COMPARISON: 01/11/2021 RESULT: Lines, tubes, and devices: None. Lungs and pleura: Atelectasis or fibrosis at the left base is stable. Mild new infrahilar infiltrate on the right. No pneumothorax. Upper lungs are clear Cardiomediastinal silhouette: Stable cardiomediastinal silhouette. Bones and soft tissues: Unremarkable. DIVISION OF RADIOLOGY Provider, [facility] - 09/09/2023 * * *Final Report* * * DATE OF EXAM: Sep 08 2023 3:13PM [id number] [id number] - XR CHEST 2V FRONTAL/LAT / PROCEDURE REASON: Bacterial pneumonia * * * * Physician Interpretation * * * * EXAMINATION: CHEST RADIOGRAPH (2 VIEW FRONTAL & LATERAL) CLINICAL HISTORY: Bacterial pneumonia MQ: XC2_6 EXAM DATE/TIME: 09/08/2023 3:13 PM COMPARISON: 01/11/2021 RESULT: Lines, tubes, and devices: None. Lungs and pleura: Atelectasis or fibrosis at the left base is stable. Mild new infrahilar infiltrate on the right. No pneumothorax. Upper lungs are clear Cardiomediastinal silhouette: Stable cardiomediastinal silhouette. Bones and soft tissues: Unremarkable. IMPRESSION IMPRESSION: Atelectasis or fibrosis at the left base is stable. Mild infrahilar infiltrate on the right. Follow-up recommended Electrical Engineering Draftsperson: [email or web address] Transcribe Date/Time: Sep 09 2023 10:18A Dictated by : CLYDE RUIZ MD This examination was interpreted and the report reviewed and electronically signed by: CLYDE RUIZ MD on Sep 09 2023 10:20AM EST [facility] XR Chest PA and LateralOrder ed By: [facility] Provider on 09-09-2023 [facility] ALBUMIN/CREAT RATIO RND URon 09-08-2023 Albumin DL <= 20 mg/L (U) [Mass/Vol] [facility] Albumin/Creatinine (U) [Mass ratio] <30 mg/g [facility] Creatinine (U) [Mass/Vol] 100.7 mg/dL 20.0 - 300.0 mg/dL [facility] CBC W Auto Differential pane l (Bld)on 09-08-2023 Basophils (Bld) [#/Vol] 0.06 10*3/uL <0.11 k/uL [facility] Basophils/100 WBC (Bld) 0.8 % C [facility] Differential cell count method Nom (Bld) Auto [facility] Eosinophils (Bld) [#/Vol] 0.09 10*3/uL <0.46 k/uL [facility] Eosinophils/100 WBC (Bld) 1.2 % [facility] Erythrocyte distribution width (RBC) [Ratio] 13.9 % 11.5 - 15.0 % [facility] Hematocrit (Bld) [Volume fraction] 33.6 % Low 36.0 - 46.0 % [facility] Hemoglobin (Bld) [Mass/Vol] 10.3 g/dL Low 11.5 - 15.5 g/dL [facility] Immature granulocytes (Bld) [#/Vol] 0.09 10*3/uL <0.10 k/uL [facility] Immature granulocytes/100 WBC (Bld) 1.2 % [facility] Lymphocytes (Bld) [#/Vol] 0.82 10*3/uL Low 1.00 - 4.00 k/uL [facility] Lymphocytes/100 WBC (Bld) 10.9 % [facility] MCH (RBC) [Entitic mass] 29.3 pg 26.0 - 34.0 pg [facility] MCHC (RBC) [Mass/Vol] 30.7 g/dL 30.5 - 36.0 g/dL [facility] MCV (RBC) [Entitic vol] 95.7 fL 80.0 - 100.0 fL [facility] Monocytes (Bld) [#/Vol] 0.81 10*3/uL <0.87 k/uL [facility] Monocytes/100 WBC (Bld) 10.7 % C [facility] Neutrophils (Bld) [#/Vol] 5.67 10*3/uL 1.45 - 7.50 k/uL [facility] Neutrophils/100 WBC (Bld) 75.2 % [facility] Nucleated RBC (Bld) [#/Vol] <0.01 k/uL [facility] Nucleated RBC/100 WBC (Bld) [Ratio] 0.0 /100 WBC [facility] Platelet mean volume (Bld) [Entitic vol] 8.9 fL Low 9.0 - 12.7 fL [facility] Platelets (Bld) [#/Vol] 378 10*3/uL 150 - 400 k/uL [facility] RBC (Bld) [#/Vol] 3.51 10*6/uL Low 3.90 - 5.2 0 m/uL [facility] WBC (Bld) [#/Vol] 7.54 10*3/uL 3.70 - 11. 00 k/uL [facility] Comprehensive metabolic 2000 panelon 09-08-2023 Albumin [Mass/Vol] 3.6 g/dL Low 3.9 - 4.9 g/dL [facility] ALP [Catalytic activity/Vol] 82 U/L 34 - 123 U/L [facility] ALT [Catalytic activity/Vol] 9 U/L 7 - 38 U/L [facility] Anion gap [Moles/Vol] 12 mmol/L 9 - 18 mmol/L [facility] AST [Catalytic activity/Vol] 18 U/L 13 - 35 U/L [facility] Bilirubin [Mass/Vol] 0.3 mg/dL 0.2 - 1 .3 mg/dL [facility] Calcium [Mass/Vol] 9.2 mg/dL 8.5 - 10. 2 mg/dL [facility] Chloride [Moles/Vol] 94 mmol/L Low 97 - 10 5 mmol/L [facility] CO2 [Moles/Vol] 31 mmol/L High 22 - 30 mmol/L [facility] Creatinine [Mass/Vol] 1.03 mg/dL High 0.58 - 0.96 mg/dL [facility] Estimated Glomerular Filtration Rate 56 mL/min/1.73m Low >=60 mL/min/1.73m [facility] Glucose [Mass/Vol] 88 mg/dL 74 - 99 mg/dL [facility] Potassium [Moles/Vol] 3.9 mmol/L 3.7 - 5.1 mmol/L [facility] Protein [Mass/Vol] 6.4 g/dL 6.3 - 8.0 g/dL [facility] Sodium [Moles/Vol] 137 mmol/L 136 - 144 mmol/L [facility] Urea nitrogen [Mass/Vol] 21 mg/dL 7 - 21 mg/dL [facility] HbA1c (Bld)on 09-08-2023 Average glucose Estimated from glycated hemoglobin (Bld) [Mass/Vol] 117 mg/dL [facility] HbA1c (Bld) [Mass fraction] 5.7 % High 4.3 - 5.6 % [facility] LIPID PANEL, NONFASTINGon Cholesterol [Mass/Vol] 158 mg/dL <200 mg/dL [facility] HDL Cholesterol, Nonfasting 40 mg/dL >39 mg/dL [facility] LDL Cholesterol, Nonfasting 90 mg/dL <100 mg/dL [facility] LDL/HDL Ratio, Nonfasting 2.25 mg/dL <2.54 mg/dL [facility] Non HDL Cholesterol, Nonfasting 118 mg/dL <130 mg/dL [facility] Total Chol/HDL Ratio, Nonfasting 3.95 mg/dL <5.10 mg/dL [facility] Triglycerides, Nonfasting 138 mg/dL <150 mg/dL [facility] VLDL Cholesterol, Nonfasting 28 mg/dL <30 mg/dL [facility] XR Chest PA and Lateralon Radiology Study observation (narrative) [facility] Absolute lymphocyte countOrd ered By: Juni Ho on 08-28-2023 Lymphocytes Auto (Unsp spec) [#/Vol] 0.23 10*3/uL 0.83-4.51 [facility] Automated lymphocyte count a s percentage of total leukocytesOrdered By: Juni Ho on 08-28-2023 Lymphocytes/100 WBC Auto (Unsp spec) 1.8 % 19-41 [facility] Basophil percentageOrdered B y: Juni Ho on 08-28-2023 Basophils/100 WBC (Bld) 0.6 % 0-1 [facility] Bilirubin [Mass/Vol] 0.70 mg/dL 0.20-1.00 [facility] Comment on above: For patients on eltr ombopag therapy, use of Dimension [place] TBIL is not recommended. Chloride [Moles/Vol] 88 mmol/L 98-107 [facility] Eosinophils/100 WBC (Bld) 0.1 % 0-5 [facility] Glucose [Mass/Vol] 173 mg/dL 74-106 [facility] Comment on above: Fasting Glucose resu lt greater than or equal to 126 mg/dL suggests DIABETES MELLITUS per A.D.A. criteria. Hemoglobin (Bld) [Mass/Vol] 10.7 g/dL 12.0-15.0 [facility] Monocytes/100 WBC (Bld) 12.3 % 0-10 [facility] Neutrophils (Bld) [#/Vol] 10.7 10*3/uL 2.0-7.7 [facility] Neutrophils/100 WBC (Bld) 84.7 % 47-70 [facility] Potassium [Moles/Vol] 3.1 mmol/L 3.5-5.1 [facility] Protein [Mass/Vol] 7.2 g/dL 6.4-8.2 [facility] Sodium [Moles/Vol] 131 mmol/L 136-145 [facility] WBC (Bld) [#/Vol] 12.7 10*3/uL 4.4-11.0 [facility] Bilirubin Test strip Ql (U)O rdered By: Juni Ho on 08-28-2023 Bilirubin Ql (U) Negative Negative [facility] Blood manual differential co mment interpretation (narrative result)Ordered By: Juni Ho on 08-28-2023 Manual differential comment Lamin (Bld) [Interp] SCANNED [facility] Comment on above: LYMPHOPENIA NOTEDMON OCYTOSIS NOTED Determination of erythrocyte mean corpuscular volume (MCV)Ordered By: Juni Ho on 08-28-2023 MCV (RBC) [Entitic vol] 92.9 fL 81-99 [facility] Erythrocyte distribution wid th ratioOrdered By: Juni Ho on 08-28-2023 Erythrocyte distribution width (RBC) [Ratio] 13.3 % 11.6-14.6 [facility] Erythrocyte distribution wid th standard deviationOrdered By: Juni Ho on 08-28-2023 Erythrocyte distribution width (RBC) [Entitic vol] 45.3 fL 35.1-43.9 [facility] Hematocrit Auto (Bld) [Volum e fraction]Ordered By: Juni Ho on 08-28-2023 Hematocrit (Bld) [Volume fraction] 33.9 % 37-47 [facility] Immature granulocytes/100 WB C Auto (Bld)Ordered By: Juni Ho on 08-28-2023 Immature granulocytes/100 WBC (Bld) 0.500 % 0.0-0.9 [facility] Comment on above: IG% - Immature Granu locytes (promyelocytes, myelocytes and metamyelocytes) > 1% indicates that a LEFT SHIFT is Present. Ketones Test strip Ql (U)Ord ered By: Juni Ho on 08-28-2023 Ketones Ql (U) 5 mg/dl Negative [facility] Laboratory - Chemistry and C hemistry - challengeOrdered By: Juni Ho on 08-28-2023 Albumin/Globulin [Mass ratio] 0.6 {ratio} 0.9-2.4 [facility] ALP [Catalytic activity/Vol] 88 U/L 45-117 [facility] ALT [Catalytic activity/Vol] 13 U/L 13-56 [facility] CO2 [Moles/Vol] 37.0 mmol/L 21.0-32.0 [facility] Globulin (S) [Mass/Vol] 4.4 g/dL 2.2-4.2 [facility] Lipase [Catalytic activity/Vol] 14 U/L 13-75 [facility] Comment on above: Please note:LIPASE r evised reference range effective 22. New Lipase methodology. Expected to produce lower values than the previous assay method. NEW Reference Range: 13 - 75 U/L Urea nitrogen/Creatinine [Mass ratio] 23.3 mg/mg 10-20 [facility] Laboratory - Hematology and Cell countsOrdered By: Juni Ho on 08-28-2023 MCH (RBC) [Entitic mass] 29.3 pg 27.0-32.0 [facility] MCHC (RBC) [Mass/Vol] 31.6 g/dL 32-36 [facility] Nucleated RBC/100 WBC (Bld) [Ratio] 0 % 0-5 [facility] Platelet mean volume (Bld) [Entitic vol] 9.3 fL 6.2-12.0 [facility] Platelets (Bld) [#/Vol] 263 10*3/uL 150-450 [facility] Nitrite Test strip Ql (U)Ord ered By: Juni Ho on 08-28-2023 Nitrite Ql (U) Negative Negative [facility] No Panel InformationOrdered By: Juni Ho on 08-28-2023 Estimated GFR (MDRD) Amer 74 mL/min >60 [facility] Comment on above: GFR Calc Estimated GFR (MDRD) Non-Af Amer 61 mL/min >60 [facility] Comment on above: Non- GFR Calc Protein Test strip Ql (U)Ord ered By: Juni Ho on 08-28-2023 Protein Ql (U) 100 mg/dl Negative [facility] RBC Auto (Bld) [#/Vol]Ordere d By: Juni Ho on 08-28-2023 RBC (Bld) [#/Vol] 3.65 10*6/uL 4.2-5.4 [facility] Review by pathologistOrdered By: Juni Ho on 08-28-2023 Pathologist review Lamin (Unsp spec) [Interp] May foll [facility] Serum or plasma calcium norman urement (mass/volume)Ordered By: Juni Ho on 08-28-2023 Calcium [Mass/Vol] 9.5 mg/dL 8.5-10.1 [facility] Serum or plasma creatinine m easurement (mass/volume)Ordered By: Juni Ho on 08-28-2023 Creatinine [Mass/Vol] 0.94 mg/dL 0.55-1.02 [facility] Comment on above: The validity of the calculated GFR & GFRAA in patients over 70 years has not been determined. Clinical correlation is essential. Serum or plasma urea nitroge n measurement (mass/volume)Ordered By: Juni Ho on 08-28-2023 Urea nitrogen [Mass/Vol] 22 mg/dL 7-18 [facility] Thin prep Papanicolaou smear with manual screeningOrdered By: Juni Ho on 08-28-2023 Thin prep Papanicolaou smear with manual screening 2.8 g/dL 3.2-5.0 [facility] Thin prep Papanicolaou smear with manual screening 13 U/L 15-37 [facility] Thin prep Papanicolaou smear with manual screening 6 5-15 [facility] Urine blood detectionOrdered By: Juni Ho on 08-28-2023 RBC Ql (U) 50 /ul Negative [facility] Urine clarityOrdered By: Lonnie Ho on 08-28-2023 Clarity (U) Clear Clear [facility] Urine color determinationOrd ered By: Juni Ho on 08-28-2023 Color (U) Yellow Yellow [facility] Urine glucose detectionOrder ed By: Juni Ho on 08-28-2023 Glucose Ql (U) Normal mg/dl Normal [facility] Urine leukocyte esterase det ection by dipstickOrdered By: Juni Ho on 08-28-2023 Leukocyte esterase Test strip Ql (U) 25 /ul Negative [facility] Urine pHOrdered By: Juni garg on 08-28-2023 pH (U) 7.0 [pH] 5.0 - 8.0 [facility] Urine specific gravity measu rementOrdered By: Juni Ho on 08-28-2023 Specific gravity (U) [Rel density] 1.010 1.002-1.030 [facility] Urine urobilinogen measureme ntOrdered By: Juni Ho on 08-28-2023 Urobilinogen Ql (U) Normal mg/dl Normal [facility] Laboratory - Drug toxicology Ordered By: Chin Paul on 02-18-2023 Amphetamines Ql (U) Negative <1000 ng/mL [facility] Benzodiazepines Ql (U) Negative < 200 ng/mL [facility] Cannabinoids Screen Ql (U) Negative < 50 ng/mL [facility] Cocaine Ql (U) Negative < 300 ng/mL [facility] Opiates Ql (U) Positive < 300 ng/mL [facility] No Panel InformationOrdered By: Chin Paul on 02-18-2023 MDMA (Ecstasy) Screen Negative < 500 ng/mL [facility] Urine Barbiturates Screen Negative < 200 ng/mL [facility] Urine Drug Screen Comment [facility] Comment on above: CONFIRMATORY TESTING FOR ALL POSITIVE URINE DRUG SCREENRESULTS WILL ONLY BE SENT OUT UPON PHYSICIAN ORDER. VISTA Urine Drug Screen methods provide only preliminaryanalytical test results. A more specific alternate chemicalmethod must be used in order to obtain a confirmedanalytical result. Gas chromatography/mass spectrometery(GC/MS) is the preferred confirmatory method. Clinicalconsideration and professional judgement should be appliedto any drug of abuse test result, particularly whenpreliminary positive results are used. URINE TCA TESTING MUST BE ORDERED SEPARATELY. USE TESTMNEMONIC: [facility] Urine Methadone Screen Negative < 300 ng/mL [facility] Urine phencyclidine (PCP) de tectionOrdered By: Chin Paul on 02-18-2023 Phencyclidine Ql (U) Negative < 25 ng/mL [facility] CBC W Auto Differential pane l (Bld)on 01-13-2023 Basophils (Bld) [#/Vol] 0.04 10*3/uL <0.11 k/uL [facility] Basophils/100 WBC (Bld) 0.6 % C [facility] Differential cell count method Nom (Bld) Auto [facility] Eosinophils (Bld) [#/Vol] 0.20 10*3/uL <0.46 k/uL [facility] Eosinophils/100 WBC (Bld) 3.1 % [facility] Erythrocyte distribution width (RBC) [Ratio] 13.2 % 11.5 - 15.0 % [facility] Hematocrit (Bld) [Volume fraction] 34.6 % Low 36.0 - 46.0 % [facility] Hemoglobin (Bld) [Mass/Vol] 10.7 g/dL Low 11.5 - 15.5 g/dL [facility] Immature granulocytes (Bld) [#/Vol] <0.10 k/uL [facility] Immature granulocytes/100 WBC (Bld) 0.3 % [facility] Lymphocytes (Bld) [#/Vol] 0.94 10*3/uL Low 1.00 - 4.00 k/uL [facility] Lymphocytes/100 WBC (Bld) 14.6 % [facility] MCH (RBC) [Entitic mass] 31.2 pg 26.0 - 34.0 pg [facility] MCHC (RBC) [Mass/Vol] 30.9 g/dL 30.5 - 36.0 g/dL [facility] MCV (RBC) [Entitic vol] 100.9 fL High 80.0 - 100.0 fL [facility] Monocytes (Bld) [#/Vol] 0.81 10*3/uL <0.87 k/uL [facility] Monocytes/100 WBC (Bld) 12.6 % C [facility] Neutrophils (Bld) [#/Vol] 4.43 10*3/uL 1.45 - 7.50 k/uL [facility] Neutrophils/100 WBC (Bld) 68.8 % [facility] Nucleated RBC (Bld) [#/Vol] <0.01 k/uL [facility] Nucleated RBC/100 WBC (Bld) [Ratio] 0.0 /100 WBC [facility] Platelet mean volume (Bld) [Entitic vol] 10.1 fL 9.0 - 12.7 fL [facility] Platelets (Bld) [#/Vol] 230 10*3/uL 150 - 400 k/uL [facility] RBC (Bld) [#/Vol] 3.43 10*6/uL Low 3.90 - 5.2 0 m/uL [facility] WBC (Bld) [#/Vol] 6.44 10*3/uL 3.70 - 11. 00 k/uL [facility] Glucose Glucometer (BldC) [M ass/Vol]Ordered By: Gustavo Jutsice on 01-02-2023 Glucose [Mass/Vol] 115 mg/dL 74-106 [facility] Comment on above: MANAGEMENT OF PATIEN T CARE PER NURSING PROTOCOL Absolute lymphocyte countOrd ered By: Gustavo Justice on 12-30-2022 Lymphocytes Auto (Unsp spec) [#/Vol] 1.25 10*3/uL 0.83-4.51 [facility] Basophil percentageOrdered B y: Gustavo Justice on 12-30-2022 Basophils/100 WBC (Bld) 1.0 % 0-1 [facility] Chloride [Moles/Vol] 94 mmol/L 98-107 [facility] Eosinophils/100 WBC (Bld) 3.1 % 0-5 [facility] Glucose [Mass/Vol] 101 mg/dL 74-106 [facility] Comment on above: Fasting Glucose resu lt from 100 to 125 mg/dL suggests IMPAIRED HOMEOSTASIS per A.D.A. criteria. Neutrophils (Bld) [#/Vol] 2.9 10*3/uL 2.0-7.7 [facility] Neutrophils/100 WBC (Bld) 55.5 % 47-70 [facility] Potassium [Moles/Vol] 3.5 mmol/L 3.5-5.1 [facility] Sodium [Moles/Vol] 136 mmol/L 136-145 [facility] WBC (Bld) [#/Vol] 5.1 10*3/uL 4.4-11.0 [facility] Blood erythrocytes count (nu mber/volume)Ordered By: Gustavo Justice on 12-30-2022 RBC (Bld) [#/Vol] 3.48 10*6/uL 4.2-5.4 [facility] Blood hemoglobin measurement (mass/volume)Ordered By: Gustavo Justice on 12-30-2022 Hemoglobin (Bld) [Mass/Vol] 10.6 g/dL 12.0-15.0 [facility] Blood lymphocytes/100 leukoc ytesOrdered By: Gustavo Justice on 12-30-2022 Lymphocytes/100 WBC (Bld) 24.4 % 19-41 [facility] Blood monocytes/100 leukocyt esOrdered By: Gustavo Justice on 12-30-2022 Monocytes/100 WBC (Bld) 15.2 % 0-10 [facility] Blood platelet mean volumeOr dered By: Gustavo Justice on 12-30-2022 Platelet mean volume (Bld) [Entitic vol] 8.9 fL 6.2-12.0 [facility] Determination of erythrocyte mean corpuscular volume (MCV)Ordered By: Gustavo Justice 12-30-2022 MCV (RBC) [Entitic vol] 100.6 fL 81-99 [facility] Hematocrit Auto (Bld) [Volum e fraction]Ordered By: Gustavo Justice on 12-30-2022 Hematocrit (Bld) [Volume fraction] 35.0 % 37-47 [facility] Laboratory - Chemistry and C hemistry - challengeOrdered By: Gustavo Justice on 12-30-2022 CO2 [Moles/Vol] 40.0 mmol/L 21.0-32.0 [facility] Urea nitrogen/Creatinine [Mass ratio] 26.4 mg/mg 10-20 [facility] Laboratory - Hematology and Cell countsOrdered By: Gustavo Justice 12-30-2022 Erythrocyte distribution width (RBC) [Entitic vol] 49.3 fL 35.1-43.9 [facility] Erythrocyte distribution width (RBC) [Ratio] 13.4 % 11.6-14.6 [facility] Immature granulocytes/100 WBC (Bld) 0.800 % 0.0-0.9 [facility] Comment on above: IG% - Immature Granu locytes (promyelocytes, myelocytes and metamyelocytes) > 1% indicates that a LEFT SHIFT is Present. MCH (RBC) [Entitic mass] 30.5 pg 27.0-32.0 [facility] Nucleated RBC/100 WBC (Bld) [Ratio] 0 % 0-5 [facility] MCHC Auto (RBC) [Mass/Vol]Or dered By: Gustavo Justice on 12-30-2022 MCHC (RBC) [Mass/Vol] 30.3 g/dL 32-36 [facility] No Panel InformationOrdered By: Gustavo Justice on 12-30-2022 Estimated Creatinine Clearance Calc 42.25 ml/min [facility] Estimated GFR (MDRD) Amer 78 mL/min >60 [facility] Comment on above: GFR Calc Estimated GFR (MDRD) Non-Af Amer 64 mL/min >60 [facility] Comment on above: Non- GFR Calc Platelets bldOrdered By: Gustavo Justice on 12-30-2022 Platelets (Bld) [#/Vol] 256 10*3/uL 150-450 [facility] Serum or plasma calcium norman urement (mass/volume)Ordered By: Gustavo Justice on 12-30-2022 Calcium [Mass/Vol] 8.9 mg/dL 8.5-10.1 [facility] Serum or plasma creatinine m easurement (mass/volume)Ordered By: Gustavo Justice on 12-30-2022 Creatinine [Mass/Vol] 0.91 mg/dL 0.55-1.02 [facility] Comment on above: The validity of the calculated GFR & GFRAA in patients over 70 years has not been determined. Clinical correlation is essential. Serum or plasma urea nitroge n measurement (mass/volume)Ordered By: Gustavo Justice on 12-30-2022 Urea nitrogen [Mass/Vol] 24 mg/dL 7-18 [facility] Thin prep Papanicolaou smear with manual screeningOrdered By: Gustavo Justice on 12-30-2022 Thin prep Papanicolaou smear with manual screening 2 5-15 [facility] Glucose Glucometer (BldC) [M ass/Vol]Ordered By: Chris Deshpande on 12-15-2022 Glucose [Mass/Vol] 148 mg/dL 74-106 [facility] Comment on above: MANAGEMENT OF PATIEN T CARE PER NURSING PROTOCOL Absolute lymphocyte countOrd ered By: Angle Latham on 12-13-2022 Lymphocytes Auto (Unsp spec) [#/Vol] 0.87 10*3/uL 0.83-4.51 [facility] Basophil percentageOrdered B y: Angle Latham on 12-13-2022 Basophils/100 WBC (Bld) 0.7 % 0-1 [facility] Eosinophils/100 WBC (Bld) 2.1 % 0-5 [facility] Neutrophils (Bld) [#/Vol] 6.2 10*3/uL 2.0-7.7 [facility] Neutrophils/100 WBC (Bld) 74.0 % 47-70 [facility] WBC (Bld) [#/Vol] 8.4 10*3/uL 4.4-11.0 [facility] Blood erythrocytes count (nu mber/volume)Ordered By: Angle Latham on 12-13-2022 RBC (Bld) [#/Vol] 3.54 10*6/uL 4.2-5.4 [facility] Blood hemoglobin measurement (mass/volume)Ordered By: Angle Latham on 12-13-2022 Hemoglobin (Bld) [Mass/Vol] 10.8 g/dL 12.0-15.0 [facility] Blood lymphocytes/100 leukoc ytesOrdered By: Angle Latham on 12-13-2022 Lymphocytes/100 WBC (Bld) 10.3 % 19-41 [facility] Blood monocytes/100 leukocyt esOrdered By: Angle Latham on 12-13-2022 Monocytes/100 WBC (Bld) 9.5 % 0-10 [facility] Blood platelet adequacy dete ction by light microscopyOrdered By: Angle Latham on 12-13-2022 Platelets LM Ql (Bld) ADEQUATE ADEQ [facility] Blood platelet mean volumeOr dered By: Angle Latham on 12-13-2022 Platelet mean volume (Bld) [Entitic vol] 9.2 fL 6.2-12.0 [facility] Determination of erythrocyte mean corpuscular volume (MCV)Ordered By: Angle Latham on 12-13-2022 MCV (RBC) [Entitic vol] 100.3 fL 81-99 [facility] Hematocrit Auto (Bld) [Volum e fraction]Ordered By: Angle Latham on 12-13-2022 Hematocrit (Bld) [Volume fraction] 35.5 % 37-47 [facility] Laboratory - Hematology and Cell countsOrdered By: Angle Latham on 12-13-2022 Erythrocyte distribution width (RBC) [Entitic vol] 48.5 fL 35.1-43.9 [facility] Erythrocyte distribution width (RBC) [Ratio] 13.1 % 11.6-14.6 [facility] Immature granulocytes/100 WBC (Bld) 3.400 % 0.0-0.9 [facility] Comment on above: IG% - Immature Granu locytes (promyelocytes, myelocytes and metamyelocytes) > 1% indicates that a LEFT SHIFT is Present. MCH (RBC) [Entitic mass] 30.5 pg 27.0-32.0 [facility] Nucleated RBC/100 WBC (Bld) [Ratio] 0 % 0-5 [facility] MCHC Auto (RBC) [Mass/Vol]Or dered By: Angle Latham on 12-13-2022 MCHC (RBC) [Mass/Vol] 30.4 g/dL 32-36 [facility] Macrocytes detectionOrdered By: Angle Latham on 12-13-2022 Macrocytes Ql (Bld) 1+ [facility] Platelets bldOrdered By: Toma Latham on 12-13-2022 Platelets (Bld) [#/Vol] 304 10*3/uL 150-450 [facility] Basophil percentageOrdered B y: Angle Latham on 12-12-2022 Chloride [Moles/Vol] 98 mmol/L 98-107 [facility] Glucose [Mass/Vol] 139 mg/dL 74-106 [facility] Comment on above: Fasting Glucose resu lt greater than or equal to 126 mg/dL suggests DIABETES MELLITUS per A.D.A. criteria. Potassium [Moles/Vol] 3.8 mmol/L 3.5-5.1 [facility] Sodium [Moles/Vol] 140 mmol/L 136-145 [facility] Laboratory - Chemistry and C hemistry - challengeOrdered By: Angle Latham on 12-12-2022 CO2 [Moles/Vol] 38.0 mmol/L 21.0-32.0 [facility] Urea nitrogen/Creatinine [Mass ratio] 23.0 mg/mg 10-20 [facility] No Panel InformationOrdered By: Angle Latham on 12-12-2022 Estimated Creatinine Clearance Calc 38.44 ml/min [facility] Estimated GFR (MDRD) Amer 99 mL/min >60 [facility] Comment on above: GFR Calc Estimated GFR (MDRD) Non-Af Amer 82 mL/min >60 [facility] Comment on above: Non- GFR Calc Serum or plasma calcium norman urement (mass/volume)Ordered By: Angle Latham on 12-12-2022 Calcium [Mass/Vol] 8.7 mg/dL 8.5-10.1 [facility] Serum or plasma creatinine m easurement (mass/volume)Ordered By: Angle Latham on 12-12-2022 Creatinine [Mass/Vol] 0.74 mg/dL 0.55-1.02 [facility] Comment on above: The validity of the calculated GFR & GFRAA in patients over 70 years has not been determined. Clinical correlation is essential. Serum or plasma urea nitroge n measurement (mass/volume)Ordered By: Angle Latham on 12-12-2022 Urea nitrogen [Mass/Vol] 17 mg/dL 7-18 [facility] Thin prep Papanicolaou smear with manual screeningOrdered By: Angle Latham on 12-12-2022 Thin prep Papanicolaou smear with manual screening 4 5-15 [facility] Hemoglobin in reticulocytes (mass per reticulocyte)Ordered By: Burke Patterson on 12-11-2022 Hemoglobin (Reticulocytes) [Entitic mass] 31.9 pg 30-35 [facility] Iron measurement (mass/mass) Ordered By: Burke Patterson on 12-11-2022 Iron (Unsp spec) [Mass/Mass] 39 ug/dL 50-170 [facility] Laboratory - Chemistry and C hemistry - challengeOrdered By: Burke Patterson on 12-11-2022 Cobalamin (Vitamin B12) [Mass/Vol] 416 pg/mL 211-911 [facility] Lower GI hemoglobin IA Ql (S tl)Ordered By: Burke Patterson on 12-11-2022 Stool Occult Blood (SHENA) Positive [facility] No Panel InformationOrdered By: Burke Patterson on 12-11-2022 Immature Reticulocyte Fraction 16.40 % 3.00-15.90 [facility] Reticulocyte Count 1.41 % 0.5-1.5 [facility] Total Iron Binding Capacity 221 ug/dL 250-450 [facility] Vitamin D 25-Hydroxy 19.4 ng/mL [facility] Comment on above: Vitamin D 25(OH) Sta tus Range Deficiency <20 ng/mL (50nmol/L) Insufficiency 20 - 30 ng/mL (50 - 75 nmol/L) Sufficiency 30 - 100 ng/mL (75 - 250 nmol/L) Toxicity >100 ng/mL (>250 nmol/L) Serum or plasma ferritin shari surement (mass/volume)Ordered By: Burke Patterson on 12-11-2022 Ferritin [Mass/Vol] 746 ng/mL 8-252 [facility] Serum or plasma folate measu rement (mass/volume)Ordered By: Burke Patterson on 12-11-2022 Folate [Mass/Vol] 6.60 ng/mL 3.1-55.4 [facility] Serum or plasma iron saturat ion measurement (mass fraction)Ordered By: Burke Patterson on 12-11-2022 Iron saturation [Mass fraction] 17.6 % 15.0-55.0 [facility] Absolute lymphocyte countOrd ered By: Hector Fields on 12-10-2022 Lymphocytes Auto (Unsp spec) [#/Vol] 0.97 10*3/uL 0.83-4.51 [facility] Basophil percentageOrdered B y: Hector Fields on 12-10-2022 Basophil percentage 0-5 SEEN /hpf 0-5 [facility] Basophils/100 WBC (Bld) 0.5 % 0-1 [facility] Chloride [Moles/Vol] 90 mmol/L 98-107 [facility] Eosinophils/100 WBC (Bld) 0.6 % 0-5 [facility] Glucose [Mass/Vol] 107 mg/dL 74-106 [facility] Comment on above: Fasting Glucose resu lt from 100 to 125 mg/dL suggests IMPAIRED HOMEOSTASIS per A.D.A. criteria. Lactate [Moles/Vol] 1.2 mmol/L 0.4-2.0 [facility] Neutrophils (Bld) [#/Vol] 8.2 10*3/uL 2.0-7.7 [facility] Neutrophils/100 WBC (Bld) 74.0 % 47-70 [facility] Potassium [Moles/Vol] 3.5 mmol/L 3.5-5.1 [facility] Sodium [Moles/Vol] 135 mmol/L 136-145 [facility] WBC (Bld) [#/Vol] 11.1 10*3/uL 4.4-11.0 [facility] Bilirubin Test strip Ql (U)O rdered By: Hector Fields on 12-10-2022 Bilirubin Ql (U) Negative Negative [facility] Blood erythrocytes count (nu mber/volume)Ordered By: Hector Fields on 12-10-2022 RBC (Bld) [#/Vol] 3.60 10*6/uL 4.2-5.4 [facility] Blood hemoglobin measurement (mass/volume)Ordered By: Hector Fields on 12-10-2022 Hemoglobin (Bld) [Mass/Vol] 11.0 g/dL 12.0-15.0 [facility] Blood lymphocytes/100 leukoc ytesOrdered By: Hector Fields on 12-10-2022 Lymphocytes/100 WBC (Bld) 8.7 % 19-41 [facility] Blood monocytes/100 leukocyt esOrdered By: Hector Fields on 12-10-2022 Monocytes/100 WBC (Bld) 12.0 % 0-10 [facility] Blood platelet mean volumeOr dered By: Hector Fields on 12-10-2022 Platelet mean volume (Bld) [Entitic vol] 9.4 fL 6.2-12.0 [facility] Culture, urineOrdered By: Juan F Fields on 12-10-2022 Bacteria identified Cx Nom (U) Klebsiella aerogenes [facility] Determination of erythrocyte mean corpuscular volume (MCV)Ordered By: Hector Fields on 12-10-2022 MCV (RBC) [Entitic vol] 99.7 fL 81-99 [facility] HCO3 (BldA) [Moles/Vol]Order ed By: Hector Fields on 12-10-2022 HCO3 (Bld) [Moles/Vol] 39 mmol/L 22-26 [facility] Hematocrit Auto (Bld) [Volum e fraction]Ordered By: Hector Fields on 12-10-2022 Hematocrit (Bld) [Volume fraction] 35.9 % 37-47 [facility] Ketones Test strip Ql (U)Ord ered By: Hector Fields on 12-10-2022 Ketones Ql (U) 15 mg/dl Negative [facility] Laboratory - Chemistry and C hemistry - challengeOrdered By: Hector Fields on 12-10-2022 CO2 [Moles/Vol] 40 mmol/L 23-33 [facility] CO2 [Moles/Vol] 39.0 mmol/L 21.0-32.0 [facility] Natriuretic peptide B (Bld) [Mass/Vol] 113.3 pg/mL 0-100 [facility] Urea nitrogen/Creatinine [Mass ratio] 19.4 mg/mg 10-20 [facility] Laboratory - Hematology and Cell countsOrdered By: Hector Fields on 12-10-2022 Erythrocyte distribution width (RBC) [Entitic vol] 46.9 fL 35.1-43.9 [facility] Erythrocyte distribution width (RBC) [Ratio] 12.7 % 11.6-14.6 [facility] Immature granulocytes/100 WBC (Bld) 4.200 % 0.0-0.9 [facility] Comment on above: IG% - Immature Granu locytes (promyelocytes, myelocytes and metamyelocytes) > 1% indicates that a LEFT SHIFT is Present. MCH (RBC) [Entitic mass] 30.6 pg 27.0-32.0 [facility] Nucleated RBC/100 WBC (Bld) [Ratio] 0 % 0-5 [facility] MCHC Auto (RBC) [Mass/Vol]Or dered By: Hector Fields on 12-10-2022 MCHC (RBC) [Mass/Vol] 30.6 g/dL 32-36 [facility] Mucus LM Ql (Urine sed)Order ed By: Hector Fields on 12-10-2022 Mucus Ql (Urine sed) 0 SEEN /hpf [facility] Nitrite Test strip Ql (U)Ord ered By: Hector Fields on 12-10-2022 Nitrite Ql (U) Negative Negative [facility] No Panel InformationOrdered By: Hector Fields on 12-10-2022 Bed Mix Venous Bld PCO2 at Pat Temp 55.3 mmHg 41-51 [facility] Blood Gas Liter Flow 3.0 /min [facility] Blood Gas Specimen Type [facility] Oxygen Delivery Device Cannula [facility] Venous Blood Base Excess 15 mmol/L -1.0-3.5 [facility] Estimated Creatinine Clearance Calc 24.80 ml/min [facility] Estimated GFR (MDRD) Amer 42 mL/min >60 [facility] Comment on above: GFR Calc Estimated GFR (MDRD) Non-Af Amer 35 mL/min >60 [facility] Comment on above: Non- GFR Calc Troponin I High Sensitivity 11 pg/mL 3.0-54.0 [facility] Comment on above: Please Note: New Jennifer t Units and Gender Specific Reference Ranges. For more information see Policy Stat Procedure [place] High Sensitivity Troponin (TNIH) and attachments. PO2 venousOrdered By: Hector Fields on 12-10-2022 Oxygen (BldV) [Partial pressure] 37 mm[Hg] 25-40 [facility] Platelets bldOrdered By: Martin Fields on 12-10-2022 Platelets (Bld) [#/Vol] 306 10*3/uL 150-450 [facility] Protein Test strip Ql (U)Ord ered By: Hector Fields on 12-10-2022 Protein Ql (U) 30 mg/dl Negative [facility] Serum or plasma calcium norman urement (mass/volume)Ordered By: Hector Fields on 12-10-2022 Calcium [Mass/Vol] 9.6 mg/dL 8.5-10.1 [facility] Serum or plasma creatinine m easurement (mass/volume)Ordered By: Hector Fields on 12-10-2022 Creatinine [Mass/Vol] 1.55 mg/dL 0.55-1.02 [facility] Comment on above: The validity of the calculated GFR & GFRAA in patients over 70 years has not been determined. Clinical correlation is essential. Serum or plasma urea nitroge n measurement (mass/volume)Ordered By: Hector Fields on 12-10-2022 Urea nitrogen [Mass/Vol] 30 mg/dL 7-18 [facility] Squamous epithelial cells de tection in urine sediment by light microscopyOrdered By: Hector Fields on 12-10-2022 Epithelial cells.squamous LM Ql (Urine sed) 0-5 SEEN /hpf 5-10 [facility] Thin prep Papanicolaou smear with manual screeningOrdered By: Hector Fields on 12-10-2022 Thin prep Papanicolaou smear with manual screening 6 5-15 [facility] Urine blood detectionOrdered By: Hector Fields on 12-10-2022 RBC Ql (U) 50 /ul Negative [facility] RBC Ql (U) 0-5 SEEN /hpf 0-5 [facility] Urine clarityOrdered By: Martin Fields on 12-10-2022 Clarity (U) Clear Clear [facility] Urine color determinationOrd ered By: Hector Fields on 12-10-2022 Color (U) Yellow Yellow [facility] Urine glucose detectionOrder ed By: Hector Fields on 12-10-2022 Glucose Ql (U) Normal mg/dl Normal [facility] Urine leukocyte esterase det ection by dipstickOrdered By: Hector Fields on 12-10-2022 Leukocyte esterase Test strip Ql (U) 100 /ul Negative [facility] Urine pHOrdered By: Hector chávez on 12-10-2022 pH (U) 7.0 [pH] 5.0 - 8.0 [facility] Urine sediment bacteria coun t by microscopy (number/high power field)Ordered By: Hector Fields on 12-10-2022 Bacteria LM.HPF (Urine sed) [#/Area] 0 /[HPF] None Seen [facility] Urine specific gravity measu rementOrdered By: Hector Fields on 12-10-2022 Specific gravity (U) [Rel density] 1.010 1.002-1.030 [facility] Urobilinogen Auto test strip Ql (U)Ordered By: Hector Fields on 12-10-2022 Urobilinogen Ql (U) Normal mg/dl Normal [facility] Vital signsOrdered By: Chely Fields on 12-10-2022 Oxygen saturation in Blood 71 % 50-70 [facility] pH measurementOrdered By: Juan F Fields on 12-10-2022 pH (Unsp spec) 7.45 [pH] 7.32-7.42 [facility] Anaerobic cultureOrdered By: Dr. Magallon on 07-29-2022 Bacteria identified Anaer cx Nom (Unsp spec) No anaerobic bacteria isolated. [facility] Bacteria identified Cx Nom ( Wound)Ordered By: Dr. Magallon on 07-28-2022 Wound Culture Staphylococcus aureus [facility] Gram stain for investigation of transfusion reactionOrdered By: Dr. Magallon on 07-26-2022 Microscopic observation Gram stain Nom (Unsp spec) [facility] No Panel Informationon 04-18 [facility] Absolute lymphocyte counton 09-26-2021 Lymphocytes Auto (Unsp spec) [#/Vol] 1.18 10*3/uL 0.83-4.51 [facility] Work Phone: Bacteria identified Anaer cx Nom (Unsp spec)on 09-26-2021 Anaerobic microbial culture No anaerobic bacteria isolated. [facility] Work Phone: Bacteria identified Cx Nom ( Wound)on 09-26-2021 Wound Culture Staphylococcus epidermidis [facility] Work Phone: Basophil percentageon 2021 Basophils/100 WBC (Bld) 0.8 % 0-1 [facility] Work Phone: Bilirubin [Mass/Vol] 0.40 mg/dL 0.20-1.00 [facility] Work Phone: Comment on above: For patients on eltr ombopag therapy, use of Dimension [place] TBIL is not recommended. Chloride [Moles/Vol] 96 mmol/L 98-107 [facility] Work Phone: Eosinophils/100 WBC (Bld) 2.6 % 0-5 [facility] Work Phone: Glucose [Mass/Vol] 116 mg/dL 74-106 [facility] Work Phone: Comment on above: Fasting Glucose resu lt from 100 to 125 mg/dL suggests IMPAIRED HOMEOSTASIS per A.D.A. criteria. Neutrophils (Bld) [#/Vol] 5.4 10*3/uL 2.0-7.7 [facility] Work Phone: Neutrophils/100 WBC (Bld) 69.3 % 47-70 [facility] Work Phone: Potassium [Moles/Vol] 3.9 mmol/L 3.5-5.1 [facility] Work Phone: Protein [Mass/Vol] 7.6 g/dL 6.4-8.2 [facility] Work Phone: Sodium [Moles/Vol] 138 mmol/L 136-145 [facility] Work Phone: WBC (Bld) [#/Vol] 7.7 10*3/uL 4.4-11.0 [facility] Work Phone: Blood erythrocytes count (nu mber/volume)on 09-26-2021 RBC (Bld) [#/Vol] 4.00 10*6/uL 4.2-5.4 [facility] Work Phone: Blood hemoglobin measurement (mass/volume)on 09-26-2021 Hemoglobin (Bld) [Mass/Vol] 12.3 g/dL 12.0-15.0 [facility] Work Phone: Blood lymphocytes/100 leukoc yteson 09-26-2021 Lymphocytes/100 WBC (Bld) 15.3 % 19-41 [facility] Work Phone: Blood monocytes/100 leukocyt eson 09-26-2021 Monocytes/100 WBC (Bld) 11.6 % 0-10 [facility] Work Phone: Blood platelet mean volumeon 09-26-2021 Platelet mean volume (Bld) [Entitic vol] 9.0 fL 6.2-12.0 [facility] Work Phone: Determination of erythrocyte mean corpuscular volume (MCV)on 09-26-2021 MCV (RBC) [Entitic vol] 96.5 fL 81-99 [facility] Work Phone: Erythrocyte sedimentation ra puja 09-26-2021 ESR (Bld) [Velocity] 29 mm/h 0-30 [facility] Work Phone: Gram stain for investigation of transfusion reactionon 09-26-2021 Microscopic observation Gram stain Nom (Unsp spec) [facility] Work Phone: Hematocrit Auto (Bld) [Volum e fraction]on 09-26-2021 Hematocrit (Bld) [Volume fraction] 38.6 % 37-47 [facility] Work Phone: Laboratory - Chemistry and C hemistry - challengeon 09-26-2021 ALP [Catalytic activity/Vol] 88 U/L 45-117 [facility] Work Phone: ALT [Catalytic activity/Vol] 22 U/L 13-56 [facility] Work Phone: CO2 [Moles/Vol] 37.0 mmol/L 21.0-32.0 [facility] Work Phone: Globulin (S) [Mass/Vol] 3.8 g/dL 2.2-4.2 [facility] Work Phone: Urea nitrogen/Creatinine [Mass ratio] 34.5 mg/mg 10-20 [facility] Work Phone: Laboratory - Hematology and Cell countson 09-26-2021 Erythrocyte distribution width (RBC) [Entitic vol] 46.0 fL 35.1-43.9 [facility] Work Phone: Erythrocyte distribution width (RBC) [Ratio] 12.9 % 11.6-14.6 [facility] Work Phone: Immature granulocytes/100 WBC (Bld) 0.400 % 0.0-0.9 [facility] Work Phone: Comment on above: IG% - Immature Granu locytes (promyelocytes, myelocytes and metamyelocytes) > 1% indicates that a LEFT SHIFT is Present. MCH (RBC) [Entitic mass] 30.8 pg 27.0-32.0 [facility] Work Phone: Nucleated RBC/100 WBC (Bld) [Ratio] 0 % 0-5 [facility] Work Phone: MCHC Auto (RBC) [Mass/Vol]on 09-26-2021 MCHC (RBC) [Mass/Vol] 31.9 g/dL 32-36 [facility] Work Phone: No Panel Informationon 09-26 Estimated Creatinine Clearance Calc 42.62 ml/min [facility] Work Phone: Estimated GFR (MDRD) Amer 92 mL/min >60 [facility] Work Phone: Comment on above: GFR Calc Estimated GFR (MDRD) Non-Af Amer 76 mL/min >60 [facility] Work Phone: Comment on above: Non- GFR Calc Platelets bldon 09-26-2021 Platelets (Bld) [#/Vol] 262 10*3/uL 150-450 [facility] Work Phone: Serum or plasma albumin norman urement (mass/volume)on 09-26-2021 Albumin [Mass/Vol] 3.8 g/dL 3.2-5.0 [facility] Work Phone: Serum or plasma albumin/glob ulin mass ratioon 09-26-2021 Albumin/Globulin [Mass ratio] 1.0 {ratio} 0.9-2.4 [facility] Work Phone: Serum or plasma calcium norman urement (mass/volume)on 09-26-2021 Calcium [Mass/Vol] 9.1 mg/dL 8.5-10.1 [facility] Work Phone: Serum or plasma creatinine m easurement (mass/volume)on 09-26-2021 Creatinine [Mass/Vol] 0.78 mg/dL 0.55-1.02 [facility] Work Phone: Comment on above: The validity of the calculated GFR & GFRAA in patients over 70 years has not been determined. Clinical correlation is essential. Serum or plasma transthyreti n measurement (mass/volume)on 09-26-2021 Prealbumin [Mass/Vol] 20.2 mg/dL 20.0-40.0 [facility] Work Phone: Serum or plasma urea nitroge n measurement (mass/volume)on 09-26-2021 Urea nitrogen [Mass/Vol] 27 mg/dL 7-18 [facility] Work Phone: Thin prep Papanicolaou smear with manual screeningon 09-26-2021 Thin prep Papanicolaou smear with manual screening 21 U/L 15-37 [facility] Work Phone: Thin prep Papanicolaou smear with manual screening 5 5-15 [facility] Work Phone: Whole blood hemoglobin A1c/t otal hemoglobin ratio (mass fraction)on 09-26-2021 HbA1c (Bld) [Mass fraction] 6.0 % 3.8-5.6 [facility] Work Phone: Comment on above: Normal < 5.7 % Predi abetic 5.7 - 6.4 % Diabetic >or= 6.5 % Please note range changes. Absolute lymphocyte counton 08-09-2021 Lymphocytes Auto (Unsp spec) [#/Vol] 0.96 10*3/uL 0.83-4.51 [facility] Work Phone: Basophil percentageon 2021 Basophils/100 WBC (Bld) 0.6 % 0-1 [facility] Work Phone: Chloride [Moles/Vol] 94 mmol/L 98-107 [facility] Work Phone: Eosinophils/100 WBC (Bld) 3.9 % 0-5 [facility] Work Phone: Glucose [Mass/Vol] 131 mg/dL 74-106 [facility] Work Phone: [phone] Comment on above: Fasting Glucose resu lt greater than or equal to 126 mg/dL suggests DIABETES MELLITUS per A.D.A. criteria. Neutrophils (Bld) [#/Vol] 3.3 10*3/uL 2.0-7.7 [facility] Work Phone: [phone] Neutrophils/100 WBC (Bld) 63.5 % 47-70 [facility] Work Phone: Potassium [Moles/Vol] 4.0 mmol/L 3.5-5.1 [facility] Work Phone: [phone] Sodium [Moles/Vol] 136 mmol/L 136-145 [facility] Work Phone: WBC (Bld) [#/Vol] 5.1 10*3/uL 4.4-11.0 [facility] Work Phone: Blood erythrocytes count (nu mber/volume)on 08-09-2021 RBC (Bld) [#/Vol] 3.77 10*6/uL 4.2-5.4 [facility] Work Phone: Blood hemoglobin measurement (mass/volume)on 08-09-2021 Hemoglobin (Bld) [Mass/Vol] 11.8 g/dL 12.0-15.0 [facility] Work Phone: Blood lymphocytes/100 leukoc yteson 08-09-2021 Lymphocytes/100 WBC (Bld) 18.7 % 19-41 [facility] Work Phone: Blood monocytes/100 leukocyt eson 08-09-2021 Monocytes/100 WBC (Bld) 12.7 % 0-10 [facility] Work Phone: Blood platelet mean volumeon 08-09-2021 Platelet mean volume (Bld) [Entitic vol] 8.8 fL 6.2-12.0 [facility] Work Phone: Determination of erythrocyte mean corpuscular volume (MCV)on 08-09-2021 MCV (RBC) [Entitic vol] 97.9 fL 81-99 [facility] Work Phone: Glucose Glucometer (BldC) [M ass/Vol]on 08-09-2021 Glucose [Mass/Vol] 120 mg/dL 74-106 [facility] Work Phone: Comment on above: MANAGEMENT OF PATIEN T CARE PER NURSING PROTOCOL Hematocrit Auto (Bld) [Volum e fraction]on 08-09-2021 Hematocrit (Bld) [Volume fraction] 36.9 % 37-47 [facility] Work Phone: Laboratory - Chemistry and C hemistry - challengeon 08-09-2021 CO2 [Moles/Vol] 40.0 mmol/L 21.0-32.0 [facility] Work Phone: Urea nitrogen/Creatinine [Mass ratio] 38.3 mg/mg 10-20 [facility] Work Phone: Laboratory - Hematology and Cell countson 08-09-2021 Erythrocyte distribution width (RBC) [Entitic vol] 45.7 fL 35.1-43.9 [facility] Work Phone: Erythrocyte distribution width (RBC) [Ratio] 12.8 % 11.6-14.6 [facility] Work Phone: Immature granulocytes/100 WBC (Bld) 0.600 % 0.0-0.9 [facility] Work Phone: Comment on above: IG% - Immature Granu locytes (promyelocytes, myelocytes and metamyelocytes) > 1% indicates that a LEFT SHIFT is Present. MCH (RBC) [Entitic mass] 31.3 pg 27.0-32.0 [facility] Work Phone: Nucleated RBC/100 WBC (Bld) [Ratio] 0 % 0-5 [facility] Work Phone: MCHC Auto (RBC) [Mass/Vol]on 08-09-2021 MCHC (RBC) [Mass/Vol] 32.0 g/dL 32-36 [facility] Work Phone: No Panel Informationon 08-09 Estimated Creatinine Clearance Calc 43.27 ml/min [facility] Work Phone: Estimated GFR (MDRD) Amer 109 mL/min >60 [facility] Work Phone: Comment on above: GFR Calc Estimated GFR (MDRD) Non-Af Amer 90 mL/min >60 [facility] Work Phone: Comment on above: Non- GFR Calc Platelets bldon 08-09-2021 Platelets (Bld) [#/Vol] 264 10*3/uL 150-450 [facility] Work Phone: Serum or plasma calcium norman urement (mass/volume)on 08-09-2021 Calcium [Mass/Vol] 8.9 mg/dL 8.5-10.1 [facility] Work Phone: Serum or plasma creatinine m easurement (mass/volume)on 08-09-2021 Creatinine [Mass/Vol] 0.68 mg/dL 0.55-1.02 [facility] Work Phone: Comment on above: The validity of the calculated GFR & GFRAA in patients over 70 years has not been determined. Clinical correlation is essential. Serum or plasma urea nitroge n measurement (mass/volume)on 08-09-2021 Urea nitrogen [Mass/Vol] 26 mg/dL 7-18 [facility] Work Phone: Thin prep Papanicolaou smear with manual screeningon 08-09-2021 Thin prep Papanicolaou smear with manual screening 2 5-15 [facility] Work Phone: Basophil percentageon 2021 Basophil percentage 0 SEEN /hpf [facility] Work Phone: Bilirubin Test strip Ql (U)o n 07-28-2021 Bilirubin Ql (U) Negative Negative [facility] Work Phone: Culture, urineon 07-28-2021 Bacteria identified Cx Nom (U) Culture exhibits no growth. [facility] Work Phone: Ketones Test strip Ql (U)on 07-28-2021 Ketones Ql (U) Negative Negative [facility] Work Phone: Mucus LM Ql (Urine sed)on Mucus Ql (Urine sed) 0 SEEN /hpf [facility] Work Phone: Nitrite Test strip Ql (U)on 07-28-2021 Nitrite Ql (U) Negative Negative [facility] Work Phone: Protein Test strip Ql (U)on 07-28-2021 Protein Ql (U) Negative Negative [facility] Work Phone: Squamous epithelial cells de tection in urine sediment by light microscopyon 07-28-2021 Epithelial cells.squamous LM Ql (Urine sed) 0 SEEN /hpf [facility] Work Phone: Urine blood detectionon 07-10 RBC Ql (U) Negative Negative [facility] Work Phone: RBC Ql (U) 0 SEEN /hpf [facility] Work Phone: Urine clarityon 07-28-2021 Clarity (U) Clear Clear [facility] Work Phone: Urine color determinationon 07-28-2021 Color (U) Yellow Yellow [facility] Work Phone: Urine glucose detectionon Glucose Ql (U) Normal mg/dl Normal [facility] Work Phone: Urine leukocyte esterase det ection by dipstickon 07-28-2021 Leukocyte esterase Test strip Ql (U) Negative Negative [facility] Work Phone: Urine pHon 07-28-2021 pH (U) 8.0 [pH] [facility] Work Phone: Urine sediment bacteria coun t by microscopy (number/high power field)on 07-28-2021 Bacteria LM.HPF (Urine sed) [#/Area] 0 /[HPF] None Seen [facility] Work Phone: Urine specific gravity measu rementon 07-28-2021 Specific gravity (U) [Rel density] 1.015 [facility] Work Phone: Urobilinogen Auto test strip Ql (U)on 07-28-2021 Urobilinogen Ql (U) Normal mg/dl Normal [facility] Work Phone: Blood manual differential co mment interpretation (narrative result)on 07-26-2021 Manual differential comment Lamin (Bld) [Interp] SCANNED [facility] Work Phone: Comment on above: LYMPHOPENIA NOTED No Panel Informationon 07-26 Atypical Lymphocytes RARE % [facility] Work Phone: Absolute lymphocyte counton 07-25-2021 Lymphocytes Auto (Unsp spec) [#/Vol] 0.88 10*3/uL 0.83-4.51 [facility] Work Phone: Basophil percentageon 2021 Basophil percentage 3.2 mg/dL 2.5-4.9 [facility] Work Phone: Basophils/100 WBC (Bld) 0.4 % 0-1 [facility] Work Phone: Bilirubin [Mass/Vol] 0.50 mg/dL 0.20-1.00 [facility] Work Phone: Comment on above: For patients on eltr ombopag therapy, use of Dimension [place] TBIL is not recommended. Chloride [Moles/Vol] 98 mmol/L 98-107 [facility] Work Phone: Eosinophils/100 WBC (Bld) 0.7 % 0-5 [facility] Work Phone: Glucose [Mass/Vol] 126 mg/dL 74-106 [facility] Work Phone: Comment on above: Fasting Glucose resu lt greater than or equal to 126 mg/dL suggests DIABETES MELLITUS per A.D.A. criteria. Neutrophils (Bld) [#/Vol] 6.1 10*3/uL 2.0-7.7 [facility] Work Phone: Neutrophils/100 WBC (Bld) 73.3 % 47-70 [facility] Work Phone: Potassium [Moles/Vol] 3.8 mmol/L 3.5-5.1 [facility] Work Phone: Protein [Mass/Vol] 7.0 g/dL 6.4-8.2 [facility] Work Phone: Sodium [Moles/Vol] 138 mmol/L 136-145 [facility] Work Phone: WBC (Bld) [#/Vol] 8.4 10*3/uL 4.4-11.0 [facility] Work Phone: [phone] Blood erythrocytes count (nu mber/volume)on 07-25-2021 RBC (Bld) [#/Vol] 3.72 10*6/uL 4.2-5.4 [facility] Work Phone: Blood hemoglobin measurement (mass/volume)on 07-25-2021 Hemoglobin (Bld) [Mass/Vol] 11.6 g/dL 12.0-15.0 [facility] Work Phone: Blood lymphocytes/100 leukoc yteson 07-25-2021 Lymphocytes/100 WBC (Bld) 10.5 % 19-41 [facility] Work Phone: Blood monocytes/100 leukocyt eson 07-25-2021 Monocytes/100 WBC (Bld) 14.6 % 0-10 [facility] Work Phone: Blood platelet mean volumeon 07-25-2021 Platelet mean volume (Bld) [Entitic vol] 9.9 fL 6.2-12.0 [facility] Work Phone: [phone] Determination of erythrocyte mean corpuscular volume (MCV)on 07-25-2021 MCV (RBC) [Entitic vol] 100.3 fL 81-99 [facility] Work Phone: Glucose Glucometer (BldC) [M ass/Vol]on 07-25-2021 Glucose [Mass/Vol] 121 mg/dL 70-110 [facility] Work Phone: Comment on above: MANAGEMENT OF PATIEN T CARE PER NURSING PROTOCOL Hematocrit Auto (Bld) [Volum e fraction]on 07-25-2021 Hematocrit (Bld) [Volume fraction] 37.3 % 37-47 [facility] Work Phone: Laboratory - Chemistry and C hemistry - challengeon 07-25-2021 ALP [Catalytic activity/Vol] 84 U/L 45-117 [facility] Work Phone: ALT [Catalytic activity/Vol] 22 U/L 13-56 [facility] Work Phone: CO2 [Moles/Vol] 39.0 mmol/L 21.0-32.0 [facility] Work Phone: Globulin (S) [Mass/Vol] 3.5 g/dL 2.2-4.2 [facility] Work Phone: Magnesium [Mass/Vol] 2.2 mg/dL 1.6-2.6 [facility] Work Phone: Urea nitrogen/Creatinine [Mass ratio] 31.3 mg/mg 10-20 [facility] Work Phone: Laboratory - Hematology and Cell countson 07-25-2021 Erythrocyte distribution width (RBC) [Entitic vol] 47.0 fL 35.1-43.9 [facility] Work Phone: Erythrocyte distribution width (RBC) [Ratio] 12.8 % 11.6-14.6 [facility] Work Phone: Immature granulocytes/100 WBC (Bld) 0.500 % 0.0-0.9 [facility] Work Phone: Comment on above: IG% - Immature Granu locytes (promyelocytes, myelocytes and metamyelocytes) > 1% indicates that a LEFT SHIFT is Present. MCH (RBC) [Entitic mass] 31.2 pg 27.0-32.0 [facility] Work Phone: Nucleated RBC/100 WBC (Bld) [Ratio] 0 % 0-5 [facility] Work Phone: MCHC Auto (RBC) [Mass/Vol]on 07-25-2021 MCHC (RBC) [Mass/Vol] 31.1 g/dL 32-36 [facility] Work Phone: No Panel Informationon 07-25 SARS-CoV-2 Antigen (Rapid) [facility] Work Phone: Estimated Creatinine Clearance Calc 41.45 ml/min [facility] Work Phone: Estimated GFR (MDRD) Amer 117 mL/min >60 [facility] Work Phone: Comment on above: GFR Calc Estimated GFR (MDRD) Non-Af Amer 97 mL/min >60 [facility] Work Phone: Comment on above: Non- GFR Calc Platelets bldon 07-25-2021 Platelets (Bld) [#/Vol] 193 10*3/uL 150-450 [facility] Work Phone: Serum or plasma albumin norman urement (mass/volume)on 07-25-2021 Albumin [Mass/Vol] 3.5 g/dL 3.2-5.0 [facility] Work Phone: Serum or plasma albumin/glob ulin mass ratioon 07-25-2021 Albumin/Globulin [Mass ratio] 1.0 {ratio} 0.9-2.4 [facility] Work Phone: Serum or plasma calcium norman urement (mass/volume)on 07-25-2021 Calcium [Mass/Vol] 8.7 mg/dL 8.5-10.1 [facility] Work Phone: Serum or plasma creatinine m easurement (mass/volume)on 07-25-2021 Creatinine [Mass/Vol] 0.64 mg/dL 0.55-1.02 [facility] Work Phone: Comment on above: The validity of the calculated GFR & GFRAA in patients over 70 years has not been determined. Clinical correlation is essential. Serum or plasma urea nitroge n measurement (mass/volume)on 07-25-2021 Urea nitrogen [Mass/Vol] 20 mg/dL 7-18 [facility] Work Phone: Thin prep Papanicolaou smear with manual screeningon 07-25-2021 Thin prep Papanicolaou smear with manual screening 22 U/L 15-37 [facility] Work Phone: Thin prep Papanicolaou smear with manual screening 1 5-15 [facility] Work Phone: Basophil percentageon 2021 Basophil percentage 0 SEEN /hpf [facility] Work Phone: Bilirubin Test strip Ql (U)o n 07-24-2021 Bilirubin Ql (U) Negative Negative [facility] Work Phone: Culture, urineon 07-24-2021 Bacteria identified Cx Nom (U) Culture exhibits no growth. [facility] Work Phone: Hyaline casts LM.LPF (Urine sed) [#/Area]on 07-24-2021 Hyaline casts (Urine sed) [#/Area] 0 /[LPF] [facility] Work Phone: Ketones Test strip Ql (U)on 07-24-2021 Ketones Ql (U) Negative Negative [facility] Work Phone: Laboratory - Chemistry and C hemistry - challengeon 07-24-2021 Natriuretic peptide B (Bld) [Mass/Vol] 82.2 pg/mL 0-100 [facility] Work Phone: Mucus LM Ql (Urine sed)on Mucus Ql (Urine sed) 0 SEEN /hpf [facility] Work Phone: Nitrite Test strip Ql (U)on 07-24-2021 Nitrite Ql (U) Negative Negative [facility] Work Phone: No Panel Informationon 07-24 Troponin I High Sensitivity 17 pg/mL 3.0-54.0 [facility] Work Phone: Comment on above: Please Note: New Jennifer t Units and Gender Specific Reference Ranges. For more information see Policy Stat Procedure [place] High Sensitivity Troponin (TNIH) and attachments. Protein Test strip Ql (U)on 07-24-2021 Protein Ql (U) 30 mg/dl Negative [facility] Work Phone: Squamous epithelial cells de tection in urine sediment by light microscopyon 07-24-2021 Epithelial cells.squamous LM Ql (Urine sed) 0-5 SEEN /hpf [facility] Work Phone: Urine blood detectionon 07-09 RBC Ql (U) 10 /ul Negative [facility] Work Phone: RBC Ql (U) 0-5 SEEN /hpf [facility] Work Phone: Urine clarityon 07-24-2021 Clarity (U) Clear Clear [facility] Work Phone: Urine color determinationon 07-24-2021 Color (U) Yellow Yellow [facility] Work Phone: Urine glucose detectionon Glucose Ql (U) Normal mg/dl Normal [facility] Work Phone: Urine leukocyte esterase det ection by dipstickon 07-24-2021 Leukocyte esterase Test strip Ql (U) Negative Negative [facility] Work Phone: Urine pHon 07-24-2021 pH (U) 6.5 [pH] [facility] Work Phone: Urine sediment bacteria coun t by microscopy (number/high power field)on 07-24-2021 Bacteria LM.HPF (Urine sed) [#/Area] 1 /[HPF] None Seen [facility] Work Phone: Urine specific gravity measu rementon 07-24-2021 Specific gravity (U) [Rel density] 1.010 [facility] Work Phone: Urobilinogen Auto test strip Ql (U)on 07-24-2021 Urobilinogen Ql (U) Normal mg/dl Normal [facility] Work Phone: Comprehensive Panelon 2018 ALP [Catalytic activity/Vol] 74 U/L Normal 45-117 [facility] Comment on above: Performed By: #### P 14 #### [facility] [address] [place], [place] [address] Protein [Mass/Vol] 7.1 g/dL Normal 6.4-8.2 [facility] Comment on above: Performed By: #### P 14 #### [facility] [address] [place], [place] [address] Bilirubin [Mass/Vol] 0.8 mg/dL Normal 0.2-1.0 [facility] Comment on above: Performed By: #### P 14 #### [facility] [address] [place], [place] [address] ALT [Catalytic activity/Vol] 50 U/L Normal 12-78 [facility] Comment on above: Performed By: #### P 14 #### [facility] [address] [place], [place] [address] AST [Catalytic activity/Vol] 18 U/L Normal 15-37 [facility] Comment on above: Performed By: #### P 14 #### [facility] [address] [place], [place] [address] Creatinine [Mass/Vol] 0.65 mg/dL Normal 0.51-0.95 [facility] Comment on above: Performed By: #### P 14 #### [facility] [address] [place], [place] [address] Albumin [Mass/Vol] 3.7 g/dL Normal 3.4-5.0 [facility] Comment on above: Performed By: #### P 14 #### [facility] [address] [place], [place] [address] Anion gap [Moles/Vol] 8 mmol/L Normal 8-16 [facility] Comment on above: Performed By: #### P 14 #### [facility] [address] [place], [place] [address] CO2 [Moles/Vol] 33 mmol/L High 21-32 [facility] Comment on above: Performed By: #### P 14 #### [facility] [address] [place], [place] [address] Glucose [Mass/Vol] 187 mg/dL High 70-99 [facility] Comment on above: Performed By: #### P 14 #### [facility] [address] [place], [place] [address] Urea nitrogen [Mass/Vol] 27 mg/dL High 7-18 [facility] Comment on above: Performed By: #### P 14 #### [facility] [address] [place], [place] [address] Calcium [Mass/Vol] 8.9 mg/dL Normal 8.5-10.1 [facility] Comment on above: Performed By: #### P 14 #### [facility] [address] [place], [place] [address] Chloride [Moles/Vol] 95 mmol/L Low 98-107 [facility] Comment on above: Performed By: #### P 14 #### [facility] [address] [place], [place] [address] Potassium [Moles/Vol] 4.5 mmol/L Normal 3.5-5.1 [facility] Comment on above: Performed By: #### P 14 #### [facility] [address] [place], [place] [address] Sodium [Moles/Vol] 131 mmol/L Low 136-145 [facility] Comment on above: Performed By: #### P 14 #### [facility] [address] [place], [place] [address] Glucose Meteron 12-30-2018 Glucose [Mass/Vol] 149 mg/dL High 70-99 [facility] Comment on above: Result Comment: SANDRA CAVANAUGH Performed By: #### G LMET #### [facility] [address] [place], [place] [address] Hemogram/Diffon 12-30-2018 Abs Immature Grans 0.12 thou/cmm High 0.00-0.05 [facility] Comment on above: Performed By: #### P 14 #### [facility] [address] [place] [address] Abs Neut (ANC) 9.65 thou/cmm High 1.56-6.13 [facility] Comment on above: Performed By: #### P 14 #### [facility] [address] [place] [address] Abs. Baso 0.02 thou/cmm Normal 0.01-0.08 [facility] Comment on above: Performed By: #### P 14 #### [facility] [address] [place] [address] Abs. [place] 0.88 thou/cmm High 0.27-0.70 [facility] Comment on above: Performed By: #### P 14 #### [place] [address] Basophils/100 WBC (Bld) 0.2 % Normal [facility] Comment on above: Performed By: #### P 14 #### [place] [address] Eosinophils (Bld) [#/Vol] 0.00 thou/cmm Normal 0.00-0.31 [facility] Comment on above: Performed By: #### P 14 #### [place] [address] Eosinophils/100 WBC (Bld) 0.0 % Normal [facility] Comment on above: Performed By: #### P 14 #### [facility] [address] [place] [address] Erythrocyte distribution width (RBC) [Ratio] 13.2 % Normal 11.7-14.4 [facility] Comment on above: Performed By: #### P 14 #### [facility] [address] [place] [address] Hematocrit (Bld) [Volume fraction] 45.2 % High 34.1-44.9 [facility] Comment on above: Performed By: #### P 14 #### [facility] [address] [place] [address] Hemoglobin (Bld) [Mass/Vol] 14.5 g/dL Normal 11.2-15.7 [facility] Comment on above: Performed By: #### P 14 #### [facility] [address] [place] [address] Immature Grans 1.00 % Normal [facility] Comment on above: Performed By: #### P 14 #### [facility] [address] [place] [address] Lymphocytes (Bld) [#/Vol] 0.86 thou/cmm Low 1.18-3.74 [facility] Comment on above: Performed By: #### P 14 #### [facility] [address] [place] [address] Lymphocytes/100 WBC (Bld) 7.5 % Normal [facility] Comment on above: Performed By: #### P 14 #### [facility] [address] [place] [address] MCH (RBC) [Entitic mass] 30.5 pg Normal 25.6-32.2 [facility] Comment on above: Performed By: #### P 14 #### [facility] [address] [place] [address] MCHC (RBC) [Mass/Vol] 32.1 % Normal 31.6-34.8 [facility] Comment on above: Performed By: #### P 14 #### [facility] [address] [place] [address] MCV (RBC) [Entitic vol] 95.0 fL High 79.4-94.8 [facility] Comment on above: Performed By: #### P 14 #### [facility] [address] [place] [address] Monocytes/100 WBC (Bld) 7.6 % Normal [facility] Comment on above: Performed By: #### P 14 #### [facility] [address] [place] [address] Platelet mean volume (Bld) [Entitic vol] 9.6 fL Normal 9.4-12.3 [facility] Comment on above: Performed By: #### P 14 #### [facility] [address] [place] [address] Platelets (Bld) [#/Vol] 340 thou/cmm Normal 182-369 [facility] Comment on above: Performed By: #### P 14 #### [facility] [address] [place], [place] [address] RBC (Bld) [#/Vol] 4.76 mil/cmm Normal 3.93-5.22 [facility] Comment on above: Performed By: #### P 14 #### [facility] [address] [place] [address] RDW SD 46.4 fl High 36.4-46.3 [facility] Comment on above: Performed By: #### P 14 #### [facility] [address] [place] [address] Seg Neutrophil 83.7 % Normal [facility] Comment on above: Performed By: #### P 14 #### [facility] [address] [place] [address] WBC (Bld) [#/Vol] 11.53 thou/cmm High 3.98-10.04 [facility] Comment on above: Performed By: #### P 14 #### [facility] [address] [place] [address] MDRD GFRon 12-30-2018 GFR/1.73 sq M predicted among non-blacks MDRD (S/P/Bld) [Vol rate/Area] mL/min/{1.73_m2} Normal >60mL/min/1. 73m2 [facility] Comment on above: Result Comment: If t he patient is , multiply the result by 1.210. Performed By: #### G FR #### [facility] [address] [place] [address] Comprehensive Panelon 2018 ALP [Catalytic activity/Vol] 72 U/L Normal 45-117 [facility] Comment on above: Performed By: #### P 14 #### [place] [address] Bilirubin [Mass/Vol] 0.6 mg/dL Normal 0.2-1.0 [facility] Comment on above: Performed By: #### P 14 #### [facility] [address] [place], [place] [address] Creatinine [Mass/Vol] 0.66 mg/dL Normal 0.51-0.95 [facility] Comment on above: Performed By: #### P 14 #### [facility] [address] [place], [place] [address] Protein [Mass/Vol] 7.1 g/dL Normal 6.4-8.2 [facility] Comment on above: Performed By: #### P 14 #### [facility] [address] [place], [place] [address] ALT [Catalytic activity/Vol] 55 U/L Normal 12-78 [facility] Comment on above: Performed By: #### P 14 #### [facility] [address] [place], [place] [address] AST [Catalytic activity/Vol] 15 U/L Normal 15-37 [facility] Comment on above: Performed By: #### P 14 #### [facility] [address] [place], [place] [address] Albumin [Mass/Vol] 3.8 g/dL Normal 3.4-5.0 [facility] Comment on above: Performed By: #### P 14 #### [facility] [address] [place], [place] [address] Anion gap [Moles/Vol] 11 mmol/L Normal 8-16 [facility] Comment on above: Performed By: #### P 14 #### [facility] [address] [place], [place] [address] CO2 [Moles/Vol] 29 mmol/L Normal 21-32 [facility] Comment on above: Performed By: #### P 14 #### [facility] [address] [place], [place] [address] Glucose [Mass/Vol] 203 mg/dL High 70-99 [facility] Comment on above: Performed By: #### P 14 #### [facility] [address] [place], [place] [address] Urea nitrogen [Mass/Vol] 32 mg/dL High 7-18 [facility] Comment on above: Performed By: #### P 14 #### [facility] [address] [place] [address] Calcium [Mass/Vol] 9.0 mg/dL Normal 8.5-10.1 [facility] Comment on above: Performed By: #### P 14 #### [facility] [address] [place] [address] Chloride [Moles/Vol] 96 mmol/L Low 98-107 [facility] Comment on above: Performed By: #### P 14 #### [facility] [address] [place] [address] Potassium [Moles/Vol] 4.1 mmol/L Normal 3.5-5.1 [facility] Comment on above: Performed By: #### P 14 #### [facility] [address] [place] [address] Sodium [Moles/Vol] 132 mmol/L Low 136-145 [facility] Comment on above: Performed By: #### P 14 #### [facility] [address] [place] [address] Hemogram/Diffon 12-29-2018 Abs Immature Grans 0.13 thou/cmm High 0.00-0.05 [facility] Comment on above: Performed By: #### P 14 #### [facility] [address] [place] [address] Abs Neut (ANC) 9.82 thou/cmm High 1.56-6.13 [facility] Comment on above: Performed By: #### P 14 #### [facility] [address] [place] [address] Abs. Baso 0.01 thou/cmm Normal 0.01-0.08 [facility] Comment on above: Performed By: #### P 14 #### [facility] [address] [place] [address] Abs. [place] 0.69 thou/cmm Normal 0.27-0.70 [facility] Comment on above: Performed By: #### P 14 #### [facility] [address] [place], [place] [address] Basophils/100 WBC (Bld) 0.1 % Normal [facility] Comment on above: Performed By: #### P 14 #### [facility] [address] [place], [place] [address] Eosinophils (Bld) [#/Vol] 0.00 thou/cmm Normal 0.00-0.31 [facility] Comment on above: Performed By: #### P 14 #### [facility] [address] [place], [place] [address] Eosinophils/100 WBC (Bld) 0.0 % Normal [facility] Comment on above: Performed By: #### P 14 #### [facility] [address] [place], [place] [address] Erythrocyte distribution width (RBC) [Ratio] 13.3 % Normal 11.7-14.4 [facility] Comment on above: Performed By: #### P 14 #### [facility] [address] [place], [place] [address] Hematocrit (Bld) [Volume fraction] 43.2 % Normal 34.1-44.9 [facility] Comment on above: Performed By: #### P 14 #### [facility] [address] [place], [place] [address] Hemoglobin (Bld) [Mass/Vol] 14.2 g/dL Normal 11.2-15.7 [facility] Comment on above: Performed By: #### P 14 #### [facility] [address] [place] [address] Immature Grans 1.10 % Normal [facility] Comment on above: Performed By: #### P 14 #### [facility] [address] [place], [place] [address] Lymphocytes (Bld) [#/Vol] 0.88 thou/cmm Low 1.18-3.74 [facility] Comment on above: Performed By: #### P 14 #### [facility] [address] [place], [place] [address] Lymphocytes/100 WBC (Bld) 7.6 % Normal [facility] Comment on above: Performed By: #### P 14 #### [facility] [address] [place], [place] [address] MCH (RBC) [Entitic mass] 30.9 pg Normal 25.6-32.2 [facility] Comment on above: Performed By: #### P 14 #### [facility] [address] [place], [place] [address] MCHC (RBC) [Mass/Vol] 32.9 % Normal 31.6-34.8 [facility] Comment on above: Performed By: #### P 14 #### [facility] [address] [place], [place] [address] MCV (RBC) [Entitic vol] 93.9 fL Normal 79.4-94.8 [facility] Comment on above: Performed By: #### P 14 #### [facility] [address] [place] [address] Monocytes/100 WBC (Bld) 6.0 % Normal [facility] Comment on above: Performed By: #### P 14 #### [facility] [address] [place], [place] [address] Platelet mean volume (Bld) [Entitic vol] 10.1 fL Normal 9.4-12.3 [facility] Comment on above: Performed By: #### P 14 #### [facility] [address] [place], [place] [address] Platelets (Bld) [#/Vol] 330 thou/cmm Normal 182-369 [facility] Comment on above: Performed By: #### P 14 #### [facility] [address] [place], [place] [address] RBC (Bld) [#/Vol] 4.60 mil/cmm Normal 3.93-5.22 [facility] Comment on above: Performed By: #### P 14 #### [facility] [address] [place], [place] [address] RDW SD 45.6 fl Normal 36.4-46.3 [facility] Comment on above: Performed By: #### P 14 #### [facility] [address] [place], [place] [address] Seg Neutrophil 85.2 % Normal [facility] Comment on above: Performed By: #### P 14 #### [facility] [address] [place] [address] WBC (Bld) [#/Vol] 11.52 thou/cmm High 3.98-10.04 [facility] Comment on above: Performed By: #### P 14 #### [facility] [address] [place] [address] Troponin Ion 12-29-2018 Troponin I.cardiac [Mass/Vol] ng/mL Normal 0.015-0.045 [facility] Comment on above: Performed By: #### P 14 #### [facility] [address] [place] [address] Comprehensive Panelon 2018 ALP [Catalytic activity/Vol] 75 U/L Normal 45-117 [facility] Comment on above: Performed By: #### P 14 #### [facility] [address] [place] [address] Bilirubin [Mass/Vol] 0.6 mg/dL Normal 0.2-1.0 [facility] Comment on above: Performed By: #### P 14 #### [facility] [address] [place] [address] Protein [Mass/Vol] 7.1 g/dL Normal 6.4-8.2 [facility] Comment on above: Performed By: #### P 14 #### [facility] [address] [place] [address] ALT [Catalytic activity/Vol] 57 U/L Normal 12-78 [facility] Comment on above: Performed By: #### P 14 #### [facility] [address] [place] [address] AST [Catalytic activity/Vol] 22 U/L Normal 15-37 [facility] Comment on above: Performed By: #### P 14 #### [facility] [address] [place] [address] Creatinine [Mass/Vol] 0.53 mg/dL Normal 0.51-0.95 [facility] Comment on above: Performed By: #### P 14 #### [facility] [address] [place], [place] [address] Albumin [Mass/Vol] 3.7 g/dL Normal 3.4-5.0 [facility] Comment on above: Performed By: #### P 14 #### [facility] [address] [place], [place] [address] Anion gap [Moles/Vol] 9 mmol/L Normal 8-16 [facility] Comment on above: Performed By: #### P 14 #### [facility] [address] [place], [place] [address] CO2 [Moles/Vol] 30 mmol/L Normal 21-32 [facility] Comment on above: Performed By: #### P 14 #### [facility] [address] [place], [place] [address] Urea nitrogen [Mass/Vol] 20 mg/dL High 7-18 [facility] Comment on above: Performed By: #### P 14 #### [facility] [address] [place], [place] [address] Calcium [Mass/Vol] 8.7 mg/dL Normal 8.5-10.1 [facility] Comment on above: Performed By: #### P 14 #### [facility] [address] [place], [place] [address] Glucose [Mass/Vol] 179 mg/dL High 70-99 [facility] Comment on above: Performed By: #### P 14 #### [facility] [address] [place], [place] [address] Chloride [Moles/Vol] 102 mmol/L Normal 98-107 [facility] Comment on above: Performed By: #### P 14 #### [facility] [address] [place], [place] [address] Potassium [Moles/Vol] 4.1 mmol/L Normal 3.5-5.1 [facility] Comment on above: Performed By: #### P 14 #### [facility] [address] [place], [place] [address] Sodium [Moles/Vol] 137 mmol/L Normal 136-145 [facility] Comment on above: Performed By: #### P 14 #### [facility] [address] [place], [place] [address] Ferritinon 12-28-2018 Ferritin [Mass/Vol] 446.20 ng/mL High 8.00-252.00 [facility] Comment on above: Performed By: #### P 14 #### [facility] [address] [place] [address] Hemogram/Diffon 12-28-2018 Abs Immature Grans 0.08 thou/cmm High 0.00-0.05 [facility] Comment on above: Performed By: #### P 14 #### [facility] [address] [place] [address] Abs Neut (ANC) 9.48 thou/cmm High 1.56-6.13 [facility] Comment on above: Performed By: #### P 14 #### [facility] [address] [place] [address] Abs. Baso 0.02 thou/cmm Normal 0.01-0.08 [facility] Comment on above: Performed By: #### P 14 #### [facility] [address] [place] [address] Abs. [place] 0.80 thou/cmm High 0.27-0.70 [facility] Comment on above: Performed By: #### P 14 #### [facility] [address] [place] [address] Basophils/100 WBC (Bld) 0.2 % Normal [facility] [place] Comment on above: Performed By: #### P 14 #### [facility] [address] [place] [address] Eosinophils (Bld) [#/Vol] 0.00 thou/cmm Normal 0.00-0.31 [facility] Comment on above: Performed By: #### P 14 #### [facility] [address] [place] [address] Eosinophils/100 WBC (Bld) 0.0 % Normal [facility] Comment on above: Performed By: #### P 14 #### [facility] [address] [place] [address] Erythrocyte distribution width (RBC) [Ratio] 13.2 % Normal 11.7-14.4 [facility] Comment on above: Performed By: #### P 14 #### [facility] [address] [place], [place] [address] Hematocrit (Bld) [Volume fraction] 43.3 % Normal 34.1-44.9 [facility] Comment on above: Performed By: #### P 14 #### [facility] [address] [place], [place] [address] Hemoglobin (Bld) [Mass/Vol] 14.2 g/dL Normal 11.2-15.7 [facility] Comment on above: Performed By: #### P 14 #### [facility] [address] [place] [address] Immature Grans 0.70 % Normal [facility] Comment on above: Performed By: #### P 14 #### [facility] [address] [place], [place] [address] Lymphocytes (Bld) [#/Vol] 0.85 thou/cmm Low 1.18-3.74 [facility] Comment on above: Performed By: #### P 14 #### [facility] [address] [place], [place] [address] Lymphocytes/100 WBC (Bld) 7.6 % Normal [facility] Comment on above: Performed By: #### P 14 #### [facility] [address] [place], [place] [address] MCH (RBC) [Entitic mass] 30.9 pg Normal 25.6-32.2 [facility] Comment on above: Performed By: #### P 14 #### [facility] [address] [place], [place] [address] MCHC (RBC) [Mass/Vol] 32.8 % Normal 31.6-34.8 [facility] Comment on above: Performed By: #### P 14 #### [facility] [address] [place], [place] [address] MCV (RBC) [Entitic vol] 94.1 fL Normal 79.4-94.8 [facility] [place] Comment on above: Performed By: #### P 14 #### [facility] [address] [place], [place] [address] Monocytes/100 WBC (Bld) 7.1 % Normal [facility] Comment on above: Performed By: #### P 14 #### [facility] [address] [place] [address] Platelet mean volume (Bld) [Entitic vol] 9.6 fL Normal 9.4-12.3 [facility] Comment on above: Performed By: #### P 14 #### [facility] [address] [place] [address] Platelets (Bld) [#/Vol] 291 thou/cmm Normal 182-369 [facility] Comment on above: Performed By: #### P 14 #### [facility] [address] [place] [address] RBC (Bld) [#/Vol] 4.60 mil/cmm Normal 3.93-5.22 [facility] Comment on above: Performed By: #### P 14 #### [facility] [address] [place] [address] RDW SD 45.1 fl Normal 36.4-46.3 [facility] Comment on above: Performed By: #### P 14 #### [facility] [address] [place] [address] Seg Neutrophil 84.4 % Normal [facility] Comment on above: Performed By: #### P 14 #### [facility] [address] [place] [address] WBC (Bld) [#/Vol] 11.23 thou/cmm High 3.98-10.04 [facility] Comment on above: Performed By: #### P 14 #### [facility] [address] [place] [address] Comprehensive Panelon 2018 Creatinine [Mass/Vol] 0.57 mg/dL Normal 0.51-0.95 [facility] Comment on above: Performed By: #### P 14 #### [facility] [address] [place] [address] ALP [Catalytic activity/Vol] 72 U/L Normal 45-117 [facility] Comment on above: Performed By: #### P 14 #### [facility] [address] [place], [place] [address] Protein [Mass/Vol] 6.6 g/dL Normal 6.4-8.2 [facility] Comment on above: Performed By: #### P 14 #### [facility] [address] [place], [place] [address] Bilirubin [Mass/Vol] 0.7 mg/dL Normal 0.2-1.0 [facility] Comment on above: Performed By: #### P 14 #### [facility] [address] [place], [place] [address] ALT [Catalytic activity/Vol] 55 U/L Normal 12-78 [facility] Comment on above: Performed By: #### P 14 #### [facility] [address] [place], [place] [address] AST [Catalytic activity/Vol] 21 U/L Normal 15-37 [facility] Comment on above: Performed By: #### P 14 #### [facility] [address] [place], [place] [address] Albumin [Mass/Vol] 3.6 g/dL Normal 3.4-5.0 [facility] Comment on above: Performed By: #### P 14 #### [facility] [address] [place], [place] [address] Anion gap [Moles/Vol] 10 mmol/L Normal 8-16 [facility] Comment on above: Performed By: #### P 14 #### [facility] [address] [place], [place] [address] CO2 [Moles/Vol] 32 mmol/L Normal 21-32 [facility] Comment on above: Performed By: #### P 14 #### [facility] [address] [place], [place] [address] Glucose [Mass/Vol] 122 mg/dL High 70-99 [facility] Comment on above: Performed By: #### P 14 #### [facility] [address] [place], [place] [address] Urea nitrogen [Mass/Vol] 19 mg/dL High 7-18 [facility] Comment on above: Performed By: #### P 14 #### [facility] [address] [place] [address] Calcium [Mass/Vol] 8.8 mg/dL Normal 8.5-10.1 [facility] Comment on above: Performed By: #### P 14 #### [facility] [address] [place] [address] Chloride [Moles/Vol] 99 mmol/L Normal 98-107 [facility] Comment on above: Performed By: #### P 14 #### [facility] [address] [place] [address] Potassium [Moles/Vol] 3.4 mmol/L Low 3.5-5.1 [facility] Comment on above: Performed By: #### P 14 #### [facility] [address] [place] [address] Sodium [Moles/Vol] 138 mmol/L Normal 136-145 [facility] Comment on above: Performed By: #### P 14 #### [facility] [address] [place] [address] Hemogram/Diffon 12-27-2018 Abs Immature Grans 0.05 thou/cmm Normal 0.00-0.05 [facility] Comment on above: Performed By: #### P 14 #### [facility] [address] [place] [address] Abs Neut (ANC) 5.43 thou/cmm Normal 1.56-6.13 [facility] Comment on above: Performed By: #### P 14 #### [facility] [address] [place] [address] Abs. Baso 0.03 thou/cmm Normal 0.01-0.08 [facility] Comment on above: Performed By: #### P 14 #### [facility] [address] [place] [address] Abs. [place] 1.04 thou/cmm High 0.27-0.70 [facility] Comment on above: Performed By: #### P 14 #### [facility] [address] [place] [address] Basophils/100 WBC (Bld) 0.3 % Normal [facility] Comment on above: Performed By: #### P 14 #### [facility] [address] [place], [place] [address] Eosinophils (Bld) [#/Vol] 0.08 thou/cmm Normal 0.00-0.31 [facility] Comment on above: Performed By: #### P 14 #### [facility] [address] [place], [place] [address] Eosinophils/100 WBC (Bld) 0.9 % Normal [facility] Comment on above: Performed By: #### P 14 #### [facility] [address] [place] [address] Erythrocyte distribution width (RBC) [Ratio] 13.2 % Normal 11.7-14.4 [facility] Comment on above: Performed By: #### P 14 #### [facility] [address] [place] [address] Hematocrit (Bld) [Volume fraction] 39.7 % Normal 34.1-44.9 [facility] Comment on above: Performed By: #### P 14 #### [facility] [address] [place] [address] Hemoglobin (Bld) [Mass/Vol] 12.7 g/dL Normal 11.2-15.7 [facility] Comment on above: Performed By: #### P 14 #### [facility] [address] [place] [address] Immature Grans 0.60 % Normal [facility] Comment on above: Performed By: #### P 14 #### [facility] [address] [place], [place] [address] Lymphocytes (Bld) [#/Vol] 2.06 thou/cmm Normal 1.18-3.74 [facility] Comment on above: Performed By: #### P 14 #### [facility] [address] [place], [place] [address] Lymphocytes/100 WBC (Bld) 23.7 % Normal [facility] Comment on above: Performed By: #### P 14 #### [facility] [address] [place] [address] MCH (RBC) [Entitic mass] 30.2 pg Normal 25.6-32.2 [facility] Comment on above: Performed By: #### P 14 #### [facility] [address] [place] [address] MCHC (RBC) [Mass/Vol] 32.0 % Normal 31.6-34.8 [facility] Comment on above: Performed By: #### P 14 #### [facility] [address] [place] [address] MCV (RBC) [Entitic vol] 94.5 fL Normal 79.4-94.8 [facility] [place] Comment on above: Performed By: #### P 14 #### [facility] [address] [place] [address] Monocytes/100 WBC (Bld) 12.0 % Normal [facility] [place] Comment on above: Performed By: #### P 14 #### [facility] [address] [place] [address] Platelet mean volume (Bld) [Entitic vol] 9.8 fL Normal 9.4-12.3 [facility] Comment on above: Performed By: #### P 14 #### [facility] [address] [place] [address] Platelets (Bld) [#/Vol] 240 thou/cmm Normal 182-369 [facility] Comment on above: Performed By: #### P 14 #### [facility] [address] [place] [address] RBC (Bld) [#/Vol] 4.20 mil/cmm Normal 3.93-5.22 [facility] Comment on above: Performed By: #### P 14 #### [facility] [address] [place] [address] RDW SD 45.4 fl Normal 36.4-46.3 [facility] Comment on above: Performed By: #### P 14 #### [facility] [address] [place] [address] Seg Neutrophil 62.5 % Normal [facility] Comment on above: Performed By: #### P 14 #### [facility] [address] [place] [address] WBC (Bld) [#/Vol] 8.68 thou/cmm Normal 3.98-10.04 [facility] Comment on above: Performed By: #### P 14 #### [facility] [address] [place] [address] Comprehensive Panelon 2018 ALP [Catalytic activity/Vol] 74 U/L Normal 45-117 [facility] Comment on above: Performed By: #### C BCD1 #### [facility] [address] [place] [address] Bilirubin [Mass/Vol] 0.6 mg/dL Normal 0.2-1.0 [facility] Comment on above: Performed By: #### C BCD1 #### [facility] [address] [place] [address] Protein [Mass/Vol] 6.0 g/dL Low 6.4-8.2 [facility] Comment on above: Performed By: #### C BCD1 #### [facility] [address] [place] [address] Creatinine [Mass/Vol] 0.61 mg/dL Normal 0.51-0.95 [facility] Comment on above: Performed By: #### C BCD1 #### [facility] [address] [place] [address] ALT [Catalytic activity/Vol] 50 U/L Normal 12-78 [facility] Comment on above: Performed By: #### C BCD1 #### [facility] [address] [place] [address] AST [Catalytic activity/Vol] 25 U/L Normal 15-37 [facility] Comment on above: Performed By: #### C BCD1 #### [facility] [address] [place] [address] Albumin [Mass/Vol] 3.3 g/dL Low 3.4-5.0 [facility] Comment on above: Performed By: #### C BCD1 #### [facility] [address] [place] [address] Anion gap [Moles/Vol] 6 mmol/L Low 8-16 [facility] Comment on above: Performed By: #### C BCD1 #### [facility] [address] [place], [place] [address] Calcium [Mass/Vol] 8.3 mg/dL Low 8.5-10.1 [facility] Comment on above: Performed By: #### C BCD1 #### [facility] [address] [place], [place] [address] CO2 [Moles/Vol] 34 mmol/L High 21-32 [facility] Comment on above: Performed By: #### C BCD1 #### [facility] [address] [place], [place] [address] Glucose [Mass/Vol] 119 mg/dL High 70-99 [facility] Comment on above: Performed By: #### C BCD1 #### [facility] [address] [place] [address] Urea nitrogen [Mass/Vol] 22 mg/dL High 7-18 [facility] Comment on above: Performed By: #### C BCD1 #### [facility] [address] [place], [place] [address] Chloride [Moles/Vol] 100 mmol/L Normal 98-107 [facility] Comment on above: Performed By: #### C BCD1 #### [facility] [address] [place], [place] [address] Potassium [Moles/Vol] 3.4 mmol/L Low 3.5-5.1 [facility] Comment on above: Performed By: #### C BCD1 #### [facility] [address] [place], [place] [address] Sodium [Moles/Vol] 137 mmol/L Normal 136-145 [facility] Comment on above: Performed By: #### C BCD1 #### [facility] [address] [place], [place] [address] Hemogram/Diffon 12-26-2018 Abs Immature Grans 0.03 thou/cmm Normal 0.00-0.05 [facility] Comment on above: Performed By: #### C BCD1 #### [facility] [address] [place], [place] [address] Abs Neut (ANC) 3.33 thou/cmm Normal 1.56-6.13 [facility] Comment on above: Performed By: #### C BCD1 #### [facility] [address] [place], [place] [address] Abs. Baso 0.02 thou/cmm Normal 0.01-0.08 [facility] Comment on above: Performed By: #### C BCD1 #### [facility] [address] [place], [place] [address] Abs. [place] 0.98 thou/cmm High 0.27-0.70 [facility] Comment on above: Performed By: #### C BCD1 #### [facility] [address] [place], [place] [address] Basophils/100 WBC (Bld) 0.3 % Normal [facility] [place] Comment on above: Performed By: #### C BCD1 #### [facility] [address] [place], [place] [address] Eosinophils (Bld) [#/Vol] 0.03 thou/cmm Normal 0.00-0.31 [facility] Comment on above: Performed By: #### C BCD1 #### [facility] [address] [place], [place] [address] Eosinophils/100 WBC (Bld) 0.5 % Normal [facility] Comment on above: Performed By: #### C BCD1 #### [facility] [address] [place], [place] [address] Immature Grans 0.50 % Normal [facility] Comment on above: Performed By: #### C BCD1 #### [facility] [address] [place], [place] [address] Lymphocytes (Bld) [#/Vol] 1.58 thou/cmm Normal 1.18-3.74 [facility] Comment on above: Performed By: #### C BCD1 #### [facility] [address] [place], [place] [address] Lymphocytes/100 WBC (Bld) 26.5 % Normal [facility] Comment on above: Performed By: #### C BCD1 #### [facility] [address] [place], [place] [address] Monocytes/100 WBC (Bld) 16.4 % Normal [facility] [place] Comment on above: Performed By: #### C BCD1 #### [facility] [address] [place] [address] Seg Neutrophil 55.8 % Normal [facility] Comment on above: Performed By: #### C BCD1 #### [facility] [address] [place] [address] Erythrocyte distribution width (RBC) [Ratio] 13.3 % Normal 11.7-14.4 [facility] Comment on above: Performed By: #### C BCD1 #### [facility] [address] [place] [address] Hematocrit (Bld) [Volume fraction] 38.5 % Normal 34.1-44.9 [facility] Comment on above: Performed By: #### C BCD1 #### [facility] [address] [place] [address] Hemoglobin (Bld) [Mass/Vol] 12.3 g/dL Normal 11.2-15.7 [facility] Comment on above: Performed By: #### C BCD1 #### [facility] [address] [place] [address] MCH (RBC) [Entitic mass] 31.0 pg Normal 25.6-32.2 [facility] Comment on above: Performed By: #### C BCD1 #### [facility] [address] [place] [address] MCHC (RBC) [Mass/Vol] 31.9 % Normal 31.6-34.8 [facility] Comment on above: Performed By: #### C BCD1 #### [facility] [address] [place] [address] MCV (RBC) [Entitic vol] 97.0 fL High 79.4-94.8 [facility] [place] Comment on above: Performed By: #### C BCD1 #### [facility] [address] [place] [address] Platelet mean volume (Bld) [Entitic vol] 9.6 fL Normal 9.4-12.3 [facility] Comment on above: Performed By: #### C BCD1 #### [facility] [address] [place], [place] [address] Platelets (Bld) [#/Vol] 216 thou/cmm Normal 182-369 [facility] Comment on above: Performed By: #### C BCD1 #### [facility] [address] [place], [place] [address] RBC (Bld) [#/Vol] 3.97 mil/cmm Normal 3.93-5.22 [facility] Comment on above: Performed By: #### C BCD1 #### [facility] [address] [place], [place] [address] RDW SD 48.0 fl High 36.4-46.3 [facility] Comment on above: Performed By: #### C BCD1 #### [facility] [address] [place], [place] [address] WBC (Bld) [#/Vol] 5.97 thou/cmm Normal 3.98-10.04 [facility] Comment on above: Performed By: #### C BCD1 #### [facility] [address] [place] [address] Comprehensive Panelon 2018 ALP [Catalytic activity/Vol] 68 U/L Normal 45-117 [facility] Comment on above: Performed By: #### C BCD1 #### [facility] [address] [place], [place] [address] Protein [Mass/Vol] 6.4 g/dL Normal 6.4-8.2 [facility] Comment on above: Performed By: #### C BCD1 #### [facility] [address] [place], [place] [address] ALT [Catalytic activity/Vol] 47 U/L Normal 12-78 [facility] Comment on above: Performed By: #### C BCD1 #### [facility] [address] [place], [place] [address] Bilirubin [Mass/Vol] 0.5 mg/dL Normal 0.2-1.0 [facility] Comment on above: Performed By: #### C BCD1 #### [facility] [address] [place], [place] [address] Creatinine [Mass/Vol] 0.51 mg/dL Normal 0.51-0.95 [facility] Comment on above: Performed By: #### C BCD1 #### [facility] [address] [place], [place] [address] AST [Catalytic activity/Vol] 36 U/L Normal 15-37 [facility] Comment on above: Performed By: #### C BCD1 #### [facility] [address] [place], [place] [address] Albumin [Mass/Vol] 3.3 g/dL Low 3.4-5.0 [facility] Comment on above: Performed By: #### C BCD1 #### [facility] [address] [place], [place] [address] Anion gap [Moles/Vol] 8 mmol/L Normal 8-16 [facility] Comment on above: Performed By: #### C BCD1 #### [address] [address] CO2 [Moles/Vol] 30 mmol/L Normal 21-32 [facility] Comment on above: Performed By: #### C BCD1 #### [facility] [address] [place], [place] [address] Glucose [Mass/Vol] 153 mg/dL High 70-99 [facility] Comment on above: Performed By: #### C BCD1 #### [facility] [address] [place], [place] [address] Urea nitrogen [Mass/Vol] 24 mg/dL High 7-18 [facility] Comment on above: Performed By: #### C BCD1 #### [facility] [address] [place], [place] [address] Calcium [Mass/Vol] 8.5 mg/dL Normal 8.5-10.1 [facility] Comment on above: Performed By: #### C BCD1 #### [facility] [address] [place], [place] [address] Chloride [Moles/Vol] 102 mmol/L Normal 98-107 [facility] Comment on above: Performed By: #### C BCD1 #### [facility] [address] [place] [address] Potassium [Moles/Vol] 4.1 mmol/L Normal 3.5-5.1 [facility] Comment on above: Performed By: #### C BCD1 #### [facility] [address] [place] [address] Sodium [Moles/Vol] 136 mmol/L Normal 136-145 [facility] Comment on above: Performed By: #### C BCD1 #### [facility] [address] [place] [address] Hemogram/Diffon 12-25-2018 Abs Immature Grans 0.04 thou/cmm Normal 0.00-0.05 [facility] Comment on above: Performed By: #### C BCD1 #### [facility] [address] [place] [address] Abs Neut (ANC) 7.70 thou/cmm High 1.56-6.13 [facility] Comment on above: Performed By: #### C BCD1 #### [facility] [address] [place] [address] Abs. Baso 0.02 thou/cmm Normal 0.01-0.08 [facility] Comment on above: Performed By: #### C BCD1 #### [facility] [address] [place] [address] Abs. [place] 1.35 thou/cmm High 0.27-0.70 [facility] Comment on above: Performed By: #### C BCD1 #### [facility] [address] [place] [address] Basophils/100 WBC (Bld) 0.2 % Normal [facility] Comment on above: Performed By: #### C BCD1 #### [facility] [address] [place] [address] Eosinophils (Bld) [#/Vol] 0.01 thou/cmm Normal 0.00-0.31 [facility] Comment on above: Performed By: #### C BCD1 #### [facility] [address] [place] [address] Eosinophils/100 WBC (Bld) 0.1 % Normal [facility] Comment on above: Performed By: #### C BCD1 #### [facility] [address] [place] [address] Erythrocyte distribution width (RBC) [Ratio] 13.5 % Normal 11.7-14.4 [facility] Comment on above: Performed By: #### C BCD1 #### [facility] [address] [place] [address] Hematocrit (Bld) [Volume fraction] 37.9 % Normal 34.1-44.9 [facility] Comment on above: Performed By: #### C BCD1 #### [place] [address] Hemoglobin (Bld) [Mass/Vol] 12.2 g/dL Normal 11.2-15.7 [facility] Comment on above: Performed By: #### C BCD1 #### [place] [address] Immature Grans 0.40 % Normal [facility] Comment on above: Performed By: #### C BCD1 #### [place] [address] Lymphocytes (Bld) [#/Vol] 0.81 thou/cmm Low 1.18-3.74 [facility] Comment on above: Performed By: #### C BCD1 #### [place] [address] Lymphocytes/100 WBC (Bld) 8.2 % Normal [facility] Comment on above: Performed By: #### C BCD1 #### [facility] [address] [place] [address] MCH (RBC) [Entitic mass] 31.3 pg Normal 25.6-32.2 [facility] Comment on above: Performed By: #### C BCD1 #### [facility] [address] [place] [address] MCHC (RBC) [Mass/Vol] 32.2 % Normal 31.6-34.8 [facility] Comment on above: Performed By: #### C BCD1 #### [address] [place], [place] [address] MCV (RBC) [Entitic vol] 97.2 fL High 79.4-94.8 [facility] Comment on above: Performed By: #### C BCD1 #### [facility] [address] [place] [address] Monocytes/100 WBC (Bld) 13.6 % Normal [facility] Comment on above: Performed By: #### C BCD1 #### [facility] [address] [place] [address] Platelet mean volume (Bld) [Entitic vol] 9.9 fL Normal 9.4-12.3 [facility] Comment on above: Performed By: #### C BCD1 #### [facility] [address] [place] [address] Platelets (Bld) [#/Vol] 239 thou/cmm Normal 182-369 [facility] Comment on above: Performed By: #### C BCD1 #### [facility] [address] [place] [address] RBC (Bld) [#/Vol] 3.90 mil/cmm Low 3.93-5.22 [facility] Comment on above: Performed By: #### C BCD1 #### [facility] [address] [place] [address] RDW SD 48.2 fl High 36.4-46.3 [facility] Comment on above: Performed By: #### C BCD1 #### [facility] [address] [place] [address] Seg Neutrophil 77.5 % Normal [facility] Comment on above: Performed By: #### C BCD1 #### [facility] [address] [place] [address] WBC (Bld) [#/Vol] 9.93 thou/cmm Normal 3.98-10.04 [facility] Comment on above: Performed By: #### C BCD1 #### [facility] [address] [place] [address] Comprehensive Panelon 2018 ALP [Catalytic activity/Vol] 71 U/L Normal 45-117 [facility] Comment on above: Performed By: #### C BCD1 #### [facility] [address] [place], [place] [address] Bilirubin [Mass/Vol] 0.4 mg/dL Normal 0.2-1.0 [facility] Comment on above: Performed By: #### C BCD1 #### [facility] [address] [place], [place] [address] Protein [Mass/Vol] 6.1 g/dL Low 6.4-8.2 [facility] Comment on above: Performed By: #### C BCD1 #### [facility] [address] [place], [place] [address] ALT [Catalytic activity/Vol] 40 U/L Normal 12-78 [facility] Comment on above: Performed By: #### C BCD1 #### [facility] [address] [place], [place] [address] AST [Catalytic activity/Vol] 28 U/L Normal 15-37 [facility] Comment on above: Performed By: #### C BCD1 #### [facility] [address] [place], [place] [address] Creatinine [Mass/Vol] 0.57 mg/dL Normal 0.51-0.95 [facility] Comment on above: Performed By: #### C BCD1 #### [facility] [address] [place], [place] [address] Glucose [Mass/Vol] 152 mg/dL High 70-99 [facility] Comment on above: Performed By: #### C BCD1 #### [facility] [address] [place], [place] [address] Albumin [Mass/Vol] 3.3 g/dL Low 3.4-5.0 [facility] Comment on above: Performed By: #### C BCD1 #### [facility] [address] [place], [place] [address] Anion gap [Moles/Vol] 8 mmol/L Normal 8-16 [facility] Comment on above: Performed By: #### C BCD1 #### [facility] [address] [place], [place] [address] Calcium [Mass/Vol] 8.0 mg/dL Low 8.5-10.1 [facility] Comment on above: Performed By: #### C BCD1 #### [facility] [address] [place] [address] CO2 [Moles/Vol] 30 mmol/L Normal 21-32 [facility] Comment on above: Performed By: #### C BCD1 #### [facility] [address] [place] [address] Urea nitrogen [Mass/Vol] 26 mg/dL High 7-18 [facility] Comment on above: Performed By: #### C BCD1 #### [facility] [address] [place] [address] Chloride [Moles/Vol] 104 mmol/L Normal 98-107 [facility] Comment on above: Performed By: #### C BCD1 #### [facility] [address] [place] [address] Potassium [Moles/Vol] 4.2 mmol/L Normal 3.5-5.1 [facility] Comment on above: Performed By: #### C BCD1 #### [facility] [address] [place] [address] Sodium [Moles/Vol] 138 mmol/L Normal 136-145 [facility] Comment on above: Performed By: #### C BCD1 #### [facility] [address] [place] [address] Hemogram/Diffon 12-24-2018 Abs Immature Grans 0.04 thou/cmm Normal 0.00-0.05 [facility] Comment on above: Performed By: #### C BCD1 #### [facility] [address] [place] [address] Abs Neut (ANC) 8.30 thou/cmm High 1.56-6.13 [facility] Comment on above: Performed By: #### C BCD1 #### [facility] [address] [place] [address] Abs. Baso 0.02 thou/cmm Normal 0.01-0.08 [facility] Comment on above: Performed By: #### C BCD1 #### [facility] [address] [place] [address] Abs. [place] 1.01 thou/cmm High 0.27-0.70 [facility] Comment on above: Performed By: #### C BCD1 #### [facility] [address] [place] [address] Basophils/100 WBC (Bld) 0.2 % Normal [facility] Comment on above: Performed By: #### C BCD1 #### [facility] [address] [place] [address] Eosinophils (Bld) [#/Vol] 0.00 thou/cmm Normal 0.00-0.31 [facility] Comment on above: Performed By: #### C BCD1 #### [facility] [address] [place] [address] Eosinophils/100 WBC (Bld) 0.0 % Normal [facility] Comment on above: Performed By: #### C BCD1 #### [facility] [address] [place] [address] Erythrocyte distribution width (RBC) [Ratio] 13.3 % Normal 11.7-14.4 [facility] Comment on above: Performed By: #### C BCD1 #### [facility] [address] [place] [address] Hematocrit (Bld) [Volume fraction] 35.3 % Normal 34.1-44.9 [facility] Comment on above: Performed By: #### C BCD1 #### [facility] [address] [place] [address] Hemoglobin (Bld) [Mass/Vol] 11.3 g/dL Normal 11.2-15.7 [facility] Comment on above: Performed By: #### C BCD1 #### [facility] [address] [place] [address] Immature Grans 0.40 % Normal [facility] Comment on above: Performed By: #### C BCD1 #### [facility] [address] [place] [address] Lymphocytes (Bld) [#/Vol] 0.62 thou/cmm Low 1.18-3.74 [facility] Comment on above: Performed By: #### C BCD1 #### [facility] [address] [place], [place] [address] Lymphocytes/100 WBC (Bld) 6.2 % Normal [facility] Comment on above: Performed By: #### C BCD1 #### [facility] [address] [place], [place] [address] MCH (RBC) [Entitic mass] 31.0 pg Normal 25.6-32.2 [facility] Comment on above: Performed By: #### C BCD1 #### [facility] [address] [place], [place] [address] MCHC (RBC) [Mass/Vol] 32.0 % Normal 31.6-34.8 [facility] Comment on above: Performed By: #### C BCD1 #### [facility] [address] [place], [place] [address] MCV (RBC) [Entitic vol] 96.7 fL High 79.4-94.8 [facility] Comment on above: Performed By: #### C BCD1 #### [facility] [address] [place], [place] [address] Monocytes/100 WBC (Bld) 10.1 % Normal [facility] Comment on above: Performed By: #### C BCD1 #### [facility] [address] [place], [place] [address] Platelet mean volume (Bld) [Entitic vol] 9.8 fL Normal 9.4-12.3 [facility] Comment on above: Performed By: #### C BCD1 #### [facility] [address] [place], [place] [address] Platelets (Bld) [#/Vol] 231 thou/cmm Normal 182-369 [facility] Comment on above: Performed By: #### C BCD1 #### [facility] [address] [place], [place] [address] RBC (Bld) [#/Vol] 3.65 mil/cmm Low 3.93-5.22 [facility] Comment on above: Performed By: #### C BCD1 #### [facility] [address] [place] [address] RDW SD 47.7 fl High 36.4-46.3 [facility] Comment on above: Performed By: #### C BCD1 #### [facility] [address] [place] [address] Seg Neutrophil 83.1 % Normal [facility] Comment on above: Performed By: #### C BCD1 #### [facility] [address] [place] [address] WBC (Bld) [#/Vol] 9.99 thou/cmm Normal 3.98-10.04 [facility] Comment on above: Performed By: #### C BCD1 #### [facility] [address] [place] [address] Blood Gas Arterialon 019 Base Excess 1.0 mmol/L Normal -3.0-3.0 [facility] Comment on above: Performed By: #### C BCD1 #### [facility] [address] [place] [address] HCO3 (Bld) [Moles/Vol] 27.0 mmol/L Normal 21.0-28.0 [facility] Comment on above: Performed By: #### C BCGregorio #### [facility] [address] [place] [address] O2% Sat Arterial 93.9 % Low 96.0-100.0 [facility] Comment on above: Performed By: #### C BCD1 #### [facility] [address] [place] [address] PCO2 Arterial 50.1 mm Hg High 35.0-45.0 [facility] Comment on above: Performed By: #### C BCD1 #### [facility] [address] [place] [address] pH Arterial 7.347 Low 7.350-7.450 [facility] Comment on above: Performed By: #### C BCD1 #### [place] [address] PO2 Arterial 71.9 mm Hg Low 83.0-108.0 [facility] Comment on above: Performed By: #### C BCD1 #### [facility] [address] [place] [address] FIO2 44 % Normal [facility] Comment on above: Performed By: #### C BCD1 #### [facility] [address] [place] [address] FIO2 50 % Normal [facility] Comment on above: Performed By: #### A BG #### [facility] [address] [place] [address] Base Excess 6.4 mmol/L High -3.0-3.0 [facility] Comment on above: Performed By: #### A BG #### [facility] [address] [place] [address] HCO3 (Bld) [Moles/Vol] 33.3 mmol/L High 21.0-28.0 [facility] Comment on above: Performed By: #### A BG #### [facility] [address] [place] [address] O2% Sat Arterial 94.5 % Low 96.0-100.0 [facility] Comment on above: Performed By: #### A BG #### [facility] [address] [place] [address] PCO2 Arterial 61.0 mm Hg High 35.0-45.0 [facility] Comment on above: Performed By: #### A BG #### [facility] [address] [place] [address] pH Arterial 7.356 Normal 7.350-7.450 [facility] Comment on above: Performed By: #### A BG #### [facility] [address] [place] [address] PO2 Arterial 77.4 mm Hg Low 83.0-108.0 [facility] Comment on above: Performed By: #### A BG #### [facility] [address] [place] [address] Comprehensive Panelon 2018 ALP [Catalytic activity/Vol] 80 U/L Normal 45-117 [facility] Comment on above: Performed By: #### P 14 #### [facility] [address] [place], [place] [address] Bilirubin [Mass/Vol] 0.5 mg/dL Normal 0.2-1.0 [facility] Comment on above: Performed By: #### P 14 #### [facility] [address] [place], [place] [address] Creatinine [Mass/Vol] 0.52 mg/dL Normal 0.51-0.95 [facility] Comment on above: Performed By: #### P 14 #### [facility] [address] [place], [place] [address] Protein [Mass/Vol] 7.0 g/dL Normal 6.4-8.2 [facility] Comment on above: Performed By: #### P 14 #### [facility] [address] [place], [place] [address] ALT [Catalytic activity/Vol] 36 U/L Normal 12-78 [facility] Comment on above: Performed By: #### P 14 #### [facility] [address] [place], [place] [address] AST [Catalytic activity/Vol] 21 U/L Normal 15-37 [facility] Comment on above: Performed By: #### P 14 #### [facility] [address] [place], [place] [address] Albumin [Mass/Vol] 3.7 g/dL Normal 3.4-5.0 [facility] Comment on above: Performed By: #### P 14 #### [facility] [address] [place], [place] [address] Anion gap [Moles/Vol] 12 mmol/L Normal 8-16 [facility] Comment on above: Performed By: #### P 14 #### [facility] [address] [place], [place] [address] CO2 [Moles/Vol] 32 mmol/L Normal 21-32 [facility] Comment on above: Performed By: #### P 14 #### [facility] [address] [place], [place] [address] Calcium [Mass/Vol] 8.6 mg/dL Normal 8.5-10.1 [facility] Comment on above: Performed By: #### P 14 #### [facility] [address] [place] [address] Glucose [Mass/Vol] 128 mg/dL High 70-99 [facility] Comment on above: Performed By: #### P 14 #### [facility] [address] [place] [address] Urea nitrogen [Mass/Vol] 24 mg/dL High 7-18 [facility] Comment on above: Performed By: #### P 14 #### [facility] [address] [place] [address] Chloride [Moles/Vol] 100 mmol/L Normal 98-107 [facility] Comment on above: Performed By: #### P 14 #### [facility] [address] [place] [address] Potassium [Moles/Vol] 3.5 mmol/L Normal 3.5-5.1 [facility] Comment on above: Performed By: #### P 14 #### [facility] [address] [place] [address] Sodium [Moles/Vol] 140 mmol/L Normal 136-145 [facility] Comment on above: Performed By: #### P 14 #### [facility] [address] [place] [address] Hemogram/Diffon 12-23-2018 Abs Immature Grans 0.01 thou/cmm Normal 0.00-0.05 [facility] Comment on above: Performed By: #### C BCD1 #### [place] [address] Abs Neut (ANC) 4.93 thou/cmm Normal 1.56-6.13 [facility] Comment on above: Performed By: #### C BCD1 #### [facility] [address] [place] [address] Abs. Baso 0.07 thou/cmm Normal 0.01-0.08 [facility] Comment on above: Performed By: #### C BCD1 #### [place] [address] Abs. [place] 0.98 thou/cmm High 0.27-0.70 [facility] Comment on above: Performed By: #### C BCD1 #### [facility] [address] [place], [place] [address] Basophils/100 WBC (Bld) 0.9 % Normal [facility] Comment on above: Performed By: #### C BCD1 #### [facility] [address] [place], [place] [address] Eosinophils (Bld) [#/Vol] 0.13 thou/cmm Normal 0.00-0.31 [facility] Comment on above: Performed By: #### C BCD1 #### [facility] [address] [place], [place] [address] Eosinophils/100 WBC (Bld) 1.7 % Normal [facility] Comment on above: Performed By: #### C BCD1 #### [facility] [address] [place], [place] [address] Erythrocyte distribution width (RBC) [Ratio] 13.1 % Normal 11.7-14.4 [facility] Comment on above: Performed By: #### C BCD1 #### [facility] [address] [place], [place] [address] Hematocrit (Bld) [Volume fraction] 40.0 % Normal 34.1-44.9 [facility] Comment on above: Performed By: #### C BCD1 #### [facility] [address] [place], [place] [address] Hemoglobin (Bld) [Mass/Vol] 13.1 g/dL Normal 11.2-15.7 [facility] Comment on above: Performed By: #### C BCD1 #### [facility] [address] [place], [place] [address] Immature Grans 0.10 % Normal [facility] Comment on above: Performed By: #### C BCD1 #### [facility] [address] [place], [place] [address] Lymphocytes (Bld) [#/Vol] 1.53 thou/cmm Normal 1.18-3.74 [facility] Comment on above: Performed By: #### C BCD1 #### [facility] [address] [place], [place] [address] Lymphocytes/100 WBC (Bld) 20.0 % Normal [facility] Comment on above: Performed By: #### C BCD1 #### [facility] [address] [place] [address] MCH (RBC) [Entitic mass] 31.3 pg Normal 25.6-32.2 [facility] Comment on above: Performed By: #### C BCD1 #### [facility] [address] [place] [address] MCHC (RBC) [Mass/Vol] 32.8 % Normal 31.6-34.8 [facility] Comment on above: Performed By: #### C BCD1 #### [facility] [address] [place] [address] MCV (RBC) [Entitic vol] 95.5 fL High 79.4-94.8 [facility] Comment on above: Performed By: #### C BCD1 #### [place] [address] Monocytes/100 WBC (Bld) 12.8 % Normal [facility] Comment on above: Performed By: #### C BCD1 #### [facility] [address] [place] [address] Platelet mean volume (Bld) [Entitic vol] 9.5 fL Normal 9.4-12.3 [facility] Comment on above: Performed By: #### C BCD1 #### [place] [address] Platelets (Bld) [#/Vol] 255 thou/cmm Normal 182-369 [facility] Comment on above: Performed By: #### C BCD1 #### [facility] [address] [place] [address] RBC (Bld) [#/Vol] 4.19 mil/cmm Normal 3.93-5.22 [facility] Comment on above: Performed By: #### C BCD1 #### [facility] [address] [place] [address] RDW SD 46.3 fl Normal 36.4-46.3 [facility] Comment on above: Performed By: #### C BCD1 #### [facility] [address] [place] [address] Seg Neutrophil 64.5 % Normal [facility] Comment on above: Performed By: #### C BCD1 #### [facility] [address] [place] [address] WBC (Bld) [#/Vol] 7.65 thou/cmm Normal 3.98-10.04 [facility] Comment on above: Performed By: #### C BCD1 #### [facility] [address] [place] [address] Hgb A1con 12-23-2018 HbA1c (Bld) [Mass fraction] 163 mg/dl Normal [facility] Comment on above: Performed By: #### H A1C #### [facility] [address] [place] [address] HbA1c (Bld) [Mass fraction] 7.3 % High 4.2-6.3 [facility] Comment on above: Result Comment: Meth od is National Glycohemoglobin Standardization Program (NGSP) compliant. Performed By: #### H A1C #### [facility] [address] [place] [address] Lactic Acidon 12-23-2018 Lactate [Moles/Vol] 1.5 mmol/L Normal 0.4-2.0 [facility] Comment on above: Performed By: #### L AC #### [place] [address] MRSA Screenon 12-23-2018 MRSA DNA MONCHO+probe Ql (Unsp spec) Test performed at [facility] No MRSA detected. Normal [facility] Comment on above: Performed By: #### C BCD1 #### [facility] [address] [place] [address] Magnesium Bloodon 12-23-2018 Magnesium [Mass/Vol] 2.2 mg/dL Normal 1.6-2.6 [facility] Comment on above: Performed By: #### C BCD1 #### [facility] [address] [place] [address] Magnesium [Mass/Vol] 1.8 mg/dL Normal 1.6-2.6 [facility] Comment on above: Performed By: #### M AG #### [facility] [address] [place], [place] [address] N-terminal Pro-BNPon 019 Natriuretic peptide B (Bld) [Mass/Vol] 22 pg/mL Normal [facility] Comment on above: Result Comment: Note new reference range: Normal Reference Range: Patients <75 yrs old <125pg/ml Patients >=75 yrs old <450 pg/ml Performed By: #### P BNP #### [facility] [address] [place], [place] [address] Phosphorus Bloodon 9 Phosphate [Mass/Vol] 3.0 mg/dL Normal 2.5-4.9 [facility] Comment on above: Performed By: #### P HOS #### [facility] [address] [place], [place] [address] Potassium Bloodon 12-23-2018 Potassium [Moles/Vol] 4.2 mmol/L Normal 3.5-5.1 [facility] Comment on above: Performed By: #### C BCD1 #### [facility] [address] [place], [place] [address] Bacteria identified Anaer cx Nom (Unsp spec) Anaerobic microbial culture No anaerobic bacteria isolated. [facility] Work Phone: Bacteria identified Cx Nom ( Wound) Wound Culture Staphylococcus epidermidis [facility] Work Phone: Gram stain for investigation of transfusion reaction Microscopic observation Gram stain Nom (Unsp spec) [facility] Work Phone: Vital Signs Date Time Vital Sign Value Performing Clinician Facility 09-07-2024 14:28-0400 Body mass index (BMI) [Ratio] 29.7 kg/m2 Jalyn Smith MD Work Phone: [facility] 09-07-2024 14:28-040 Body weight 78.47 kg Jalyn Smith MD Work Phone: [facility] 09-07-2024 14:28-040 Diastolic blood pressure 62 mm[Hg] Jalyn Smith MD Work Phone: [facility] 09-07-2024 14:28-0400 Heart rate 71 /min Jalyn Smith MD Work Phone: [facility] 09-07-2024 14:28-0400 SaO2% (BldA) [Mass fraction] 93 % Jalyn Smith MD Work Phone: [facility] 09-07-2024 14:28-0400 Systolic blood pressure 110 mm[Hg] Jalyn Smith MD Work Phone: [facility] 09-04-2024 11:56-0400 Body temperature 97.5 [degF] Dr. Jalyn Smith MD Work Phone: [facility] 09-04-2024 11:56-0400 Diastolic blood pressure 87 mm[Hg] Dr. Jalyn Smith MD Work Phone: [facility] 09-04-2024 11:56-0400 Heart rate 84 /min Dr. Jalyn Smith MD Work Phone: [facility] 09-04-2024 11:56-0400 Respiratory rate 16 /min Dr. Jalyn Smith MD Work Phone: [facility] 09-04-2024 11:56-0400 SaO2% (BldA) [Mass fraction] 99 % Dr. Jalyn Smith MD Work Phone: [facility] 09-04-2024 11:56-0400 Systolic blood pressure 118 mm[Hg] Dr. Jalyn Smith MD Work Phone: [facility] 09-04-2024 07:04-0400 Body height 157.[address] Jalyn Smith MD Work Phone: [facility] 09-04-2024 07:04-0400 Body mass index (BMI) [Ratio] 32.3 kg/m2 Dr. Jalyn Smith MD Work Phone: [facility] 09-04-2024 07:04-0400 Body weight 80.[address] Jalyn Smith MD Work Phone: [facility] 09-04-2024 07:04-0400 Inhaled oxygen flow rate 3 L/min Dr. Jalyn Smith MD Work Phone: [facility] 03-09-2024 15:10-0400 Body mass index (BMI) [Ratio] 30.55 kg/m2 Jalyn Smith MD Work Phone: [facility] 03-09-2024 15:10-0400 Body weight 80.74 kg Jalyn Smith MD Work Phone: [facility] 03-09-2024 15:10-0400 Diastolic blood pressure 70 mm[Hg] Jalyn Smith MD Work Phone: [facility] 03-09-2024 15:10-0400 Heart rate 77 /min Jalyn Smith MD Work Phone: [facility] 03-09-2024 15:10-0400 SaO2% (BldA) [Mass fraction] 99 % Jalyn Smith MD Work Phone: [facility] 03-09-2024 15:10-0400 Systolic blood pressure 118 mm[Hg] Jalyn Smith MD Work Phone: [facility] 01-06-2024 11:06-0400 Diastolic blood pressure 76 mm[Hg] Juhi Constance PA-C Work Phone: [facility] 01-06-2024 11:06-0400 Heart rate 62 /min Juhi Constance PA-C Work Phone: [facility] 01-06-2024 11:06-0400 Respiratory rate 17 /min Juhi Constance PA-C Work Phone: [facility] 01-06-2024 11:06-0400 SaO2% (BldA) [Mass fraction] 95 % Juhi Constance PA-C Work Phone: [facility] 01-06-2024 11:06-0400 Systolic blood pressure 132 mm[Hg] Juhi Constance PA-C Work Phone: [facility] 11-05-2023 10:47-0400 Diastolic blood pressure 72 mm[Hg] Yaniv Todd MD Work Phone: [facility] 11-05-2023 10:47-0400 Heart rate 64 /min Yaniv Todd MD Work Phone: [facility] 11-05-2023 10:47-0400 SaO2% (BldA) [Mass fraction] 96 % Yaniv Todd MD Work Phone: [facility] Comment on above: 2L 11-05-2023 10:47-0400 Systolic blood pressure 115 mm[Hg] Yaniv Todd MD Work Phone: [facility] 09-30-2023 11:52-0400 Body mass index (BMI) [Ratio] 32.1 kg/m2 Pulm Wstr Work Phone: [facility] 09-30-2023 11:52-0400 Body weight 84.82 kg Pulm Wstr Work Phone: [facility] 09-30-2023 11:52-0400 Heart rate 94 /min Pulm Wstr Work Phone: [facility] 09-30-2023 11:52-0400 SaO2% (BldA) [Mass fraction] 94 % Pulm Wstr Work Phone: [facility] Comment on above: 2L CT 09-30-2023 11:27-0400 Body mass index (BMI) [Ratio] 32.1 kg/m2 Juhi Constance PA-C Work Phone: [facility] 09-30-2023 11:27-0400 Body weight 84.82 kg Juhi Constance PA-C Work Phone: [facility] 09-30-2023 11:27-0400 Diastolic blood pressure 76 mm[Hg] Juhi Constance PA-C Work Phone: [facility] 09-30-2023 11:27-0400 Heart rate 94 /min Juhi Constance PA-C Work Phone: [facility] 09-30-2023 11:27-0400 Respiratory rate 16 /min Juhi Constance PA-C Work Phone: [facility] 09-30-2023 11:27-0400 SaO2% (BldA) [Mass fraction] 94 % Juhi BABCOCK-C Work Phone: [facility] Comment on above: 2L O2 [place] 09-30-2023 11:27-0400 Systolic blood pressure 128 mm[Hg] Juhi BABCOCK-C Work Phone: [facility] 09-21-2023 14:52-0400 Body height 162.6 cm Yaniv Todd MD Work Phone: [facility] 09-21-2023 14:52-0400 Body weight 85.73 kg Yaniv Todd MD Work Phone: [facility] 09-21-2023 14:52-0400 Diastolic blood pressure 80 mm[Hg] Yaniv Todd MD Work Phone: [facility] 09-21-2023 14:52-0400 Heart rate 93 /min Yaniv Todd MD Work Phone: [facility] 09-21-2023 14:52-0400 SaO2% (BldA) [Mass fraction] 96 % Yaniv Todd MD Work Phone: [facility] 09-21-2023 14:52-0400 Systolic blood pressure 128 mm[Hg] Yaniv Todd MD Work Phone: [facility] 09-08-2023 14:03-0400 Body height 162.6 cm Jalyn Smith MD Work Phone: [facility] 09-08-2023 14:03-0400 Body weight 86.18 kg Jalyn Smith MD Work Phone: [facility] 09-08-2023 14:03-0400 Diastolic blood pressure 54 mm[Hg] aJlyn Smith MD Work Phone: [facility] 09-08-2023 14:03-0400 Heart rate 70 /min Jalyn Smith MD Work Phone: [facility] 09-08-2023 14:03-0400 SaO2% (BldA) [Mass fraction] 94 % Jalyn Smith MD Work Phone: [facility] 09-08-2023 14:03-0400 Systolic blood pressure 100 mm[Hg] Jalyn Smith MD Work Phone: [facility] 08-28-2023 17:48-0400 Body temperature 97.6 [degF] [facility] 08-28-2023 17:48-0400 Diastolic blood pressure 79 mm[Hg] [facility] 08-28-2023 17:48-0400 Heart rate 65 /min [facility] 08-28-2023 17:48-0400 Respiratory rate 18 /min [facility] 08-28-2023 17:48-0400 SaO2% (BldA) [Mass fraction] 95 % [facility] 08-28-2023 17:48-0400 Systolic blood pressure 115 mm[Hg] [facility] 08-28-2023 16:20-0400 Inhaled oxygen flow rate 3 L/min [facility] 08-28-2023 14:15-0400 Body height 157.48 cm [facility] [facility] 07-24-2023 10:44-0500 SaO2% (BldA) [Mass fraction] 98 % Zackery Mayfield MD Work Phone: [facility] 01-19-2023 13:57-0400 Diastolic blood pressure 68 mm[Hg] Juhi Constance PA-C Work Phone: [facility] 01-19-2023 13:57-0400 Heart rate 80 /min Juhi Constance PA-C Work Phone: [facility] 01-19-2023 13:57-0400 Respiratory rate 16 /min Juhi Constance PA-C Work Phone: [facility] 01-19-2023 13:57-0400 SaO2% (BldA) [Mass fraction] 93 % Juhi Constance PA-C Work Phone: [facility] 01-19-2023 13:57-0400 Systolic blood pressure 110 mm[Hg] Juhi Nolasco PA-C Work Phone: [facility] 01-12-2023 14:27-0400 Diastolic blood pressure 70 mm[Hg] Jalyn Smith MD Work Phone: [facility] 01-12-2023 14:27-0400 Systolic blood pressure 118 mm[Hg] Jalyn Smith MD Work Phone: [facility] 01-12-2023 13:50-0400 Body height 162.6 cm Jalyn Smith MD Work Phone: [facility] 01-12-2023 13:50-0400 Body weight 93.71 kg Jalyn Smith MD Work Phone: [facility] 01-12-2023 13:50-0400 Heart rate 73 /min Jalyn Smith MD Work Phone: [facility] 01-12-2023 13:50-0400 SaO2% (BldA) [Mass fraction] 97 % Jalyn Smith MD Work Phone: [facility] 01-09-2023 09:34-0400 Body mass index (BMI) [Ratio] 34.7 kg/m2 Dr. Jalyn Smith Work Phone: [facility] 01-09-2023 09:34-0400 Body temperature 96.6 [degF] Dr. Jalyn Smith Work Phone: [facility] 01-09-2023 09:34-0400 Diastolic blood pressure 79 mm[Hg] Dr. Jalny Smith Work Phone: [facility] 01-09-2023 09:34-0400 Heart rate 79 /min Dr. Jalyn Smith Work Phone: [facility] 01-09-2023 09:34-0400 Respiratory rate 18 /min Dr. Jalyn Smith Work Phone: [facility] 01-09-2023 09:34-0400 Systolic blood pressure 132 mm[Hg] Dr. Jalyn Smith Work Phone: [facility] 01-02-2023 10:33-0400 Body temperature 98.1 [degF] Dr. Jalyn Smith Work Phone: 5(054)861-322912 [place] [address] 01-02-2023 10:33-0400 Diastolic blood pressure 73 mm[Hg] Dr. Jalyn Smith Work Phone: 3(016)154-811912 [place] [address] 01-02-2023 10:33-0400 Heart rate 72 /min Dr. Jalyn Smith Work Phone: 9(605)669-367712 [place] [address] 01-02-2023 10:33-0400 Inhaled oxygen flow rate 3 L/min Dr. Jalyn Smith Work Phone: 9(692)479-533312 [place] [address] 01-02-2023 10:33-0400 Respiratory rate 18 /min Dr. Jalyn Smith Work Phone: 1(334)371-336812 [place] [address] 01-02-2023 10:33-0400 SaO2% (BldA) [Mass fraction] 96 % Dr. Jalyn Smith Work Phone: 2(831)954-277912 [place] [address] 01-02-2023 10:33-0400 Systolic blood pressure 127 mm[Hg] Dr. Jalyn Smith Work Phone: 1(534)626-876912 [place] [address] 12-30-2022 12:13-0400 Body mass index (BMI) [Ratio] 37 kg/m2 Dr. Jalyn Smith Work Phone: 0(160)768-746512 [place] [address] 12-30-2022 12:13-0400 Body weight 91.[address] Jayln Smith Work Phone: 5(164)317-736312 [place] [address] 12-28-2022 10:00-0400 Inhaled oxygen concentration 96 % Dr. Jalyn Smith Work Phone: 0(029)547-776312 [place] [address] 12-24-2022 12:35-0400 Body height 157.[address] Jalyn Smith Work Phone: 1(002)480-141212 [place] [address] 12-15-2022 14:33-0400 Body temperature 97.8 [degF] Dr. Jalyn Smith Work Phone: 0(595)511-854612 [place] [address] 12-15-2022 14:33-0400 Diastolic blood pressure 91 mm[Hg] Dr. Jalyn Smith Work Phone: [facility] 12-15-2022 14:33-0400 Heart rate 85 /min Dr. Jalyn Smith Work Phone: [facility] 12-15-2022 14:33-0400 Inhaled oxygen flow rate 3 L/min Dr. Jalyn Smith Work Phone: 2(492)737-415536 [place] [address] 12-15-2022 14:33-0400 Respiratory rate 18 /min Dr. Jalyn Smith Work Phone: 0(236)964-183236 [place] [address] 12-15-2022 14:33-0400 SaO2% (BldA) [Mass fraction] 95 % Dr. Jalyn Smith Work Phone: [facility] 12-15-2022 14:33-0400 Systolic blood pressure 151 mm[Hg] Dr. Jalyn Smith Work Phone: 9(008)806-125136 [place] [address] 12-10-2022 23:10-0400 Body height 157.[address] Jalyn Smith Work Phone: [facility] 12-10-2022 23:10-0400 Body mass index (BMI) [Ratio] 37.8 kg/m2 Dr. Jalyn Smith Work Phone: 8(766)584-188036 [place] [address] 12-10-2022 23:10-0400 Body weight 93.[address] Jalyn Smith Work Phone: [facility] 12-10-2022 23:04-0400 Body temperature 98 [degF] [facility] 12-10-2022 23:04-0400 Diastolic blood pressure 86 mm[Hg] [facility] 12-10-2022 23:04-0400 Heart rate 68 /min [facility] 12-10-2022 23:04-0400 Inhaled oxygen flow rate 3 L/min [facility] 12-10-2022 23:04-0400 Respiratory rate 18 /min [facility] 12-10-2022 23:04-0400 Systolic blood pressure 163 mm[Hg] [facility] 12-10-2022 20:50-0400 SaO2% (BldA) [Mass fraction] 94 % [facility] 12-10-2022 17:53-0400 Body mass index (BMI) [Ratio] 38 kg/m2 [facility] 12-10-2022 17:53-0400 Body weight 94.5 kg [facility] 12-10-2022 17:16-0400 Body height 157.48 cm [facility] 12-10-2022 16:17-0400 Body height 162.6 cm Jalyn Smith MD Work Phone: [facility] 12-10-2022 16:17-0400 Body weight 93.89 kg Jalyn Smith MD Work Phone: [facility] 12-10-2022 16:17-0400 Diastolic blood pressure 66 mm[Hg] Jalyn Smith MD Work Phone: [facility] 12-10-2022 16:17-0400 Heart rate 68 /min Jalyn Smith MD Work Phone: [facility] 12-10-2022 16:17-0400 SaO2% (BldA) [Mass fraction] 96 % Jalyn Smith MD Work Phone: [facility] 12-10-2022 16:17-0400 Systolic blood pressure 116 mm[Hg] Jalyn Smith MD Work Phone: [facility] 12-06-2022 01:18-0400 Body weight 91.[address] Jalyn Smith Work Phone: [facility] 12-06-2022 01:18-0400 Inhaled oxygen flow rate 2 L/min Dr. Jalyn Smith Work Phone: [facility] 12-05-2022 11:03-0400 Body mass index (BMI) [Ratio] 34.7 kg/m2 [facility] 12-05-2022 11:03-0400 Body temperature 97.6 [degF] [facility] 12-05-2022 11:03-0400 Diastolic blood pressure 56 mm[Hg] [facility] 12-05-2022 11:03-0400 Heart rate 86 /min [facility] 12-05-2022 11:03-0400 Systolic blood pressure 100 mm[Hg] [facility] 11-21-2022 09:11-0400 Respiratory rate 18 /min [facility] 11-07-2022 09:25-0400 Inhaled oxygen flow rate 2 L/min [facility] 11-06-2022 00:33-0400 Body weight 91.77 kg [facility] 10-24-2022 09:16-0400 Body mass index (BMI) [Ratio] 34.7 kg/m2 [facility] 10-24-2022 09:16-0400 Body temperature 97 [degF] [facility] 10-24-2022 09:16-0400 Diastolic blood pressure 71 mm[Hg] [facility] 10-24-2022 09:16-0400 Heart rate 60 /min [facility] 10-24-2022 09:16-0400 Respiratory rate 18 /min [facility] 10-24-2022 09:16-0400 Systolic blood pressure 166 mm[Hg] [facility] 10-17-2022 09:14-0400 Inhaled oxygen flow rate 3 L/min [facility] 10-06-2022 00:39-0400 Body weight 91.77 kg [facility] 10-03-2022 08:32-0400 Body mass index (BMI) [Ratio] 34.7 kg/m2 [facility] 10-03-2022 08:32-0400 Body temperature 96.6 [degF] [facility] 10-03-2022 08:32-0400 Diastolic blood pressure 73 mm[Hg] [facility] 10-03-2022 08:32-0400 Heart rate 71 /min [facility] 10-03-2022 08:32-0400 Respiratory rate 18 /min [facility] 10-03-2022 08:32-0400 Systolic blood pressure 124 mm[Hg] [facility] 10-01-2022 13:12-0400 Body weight 93.89 kg Jalyn Smith MD Work Phone: [facility] 10-01-2022 13:12-0400 Diastolic blood pressure 72 mm[Hg] Jalyn Smith MD Work Phone: [facility] 10-01-2022 13:12-0400 Heart rate 73 /min Jalyn Smith MD Work Phone: [facility] 10-01-2022 13:12-0400 SaO2% (BldA) [Mass fraction] 95 % Jalyn Smith MD Work Phone: [facility] 10-01-2022 13:12-0400 Systolic blood pressure 112 mm[Hg] Jalyn Smith MD Work Phone: [facility] 09-26-2022 08:51-0400 Inhaled oxygen flow rate 2 L/min [facility] 09-06-2022 01:59-0400 Body weight 91.77 kg [facility] 09-05-2022 09:13-0400 Body mass index (BMI) [Ratio] 34.7 kg/m2 [facility] 09-05-2022 09:13-0400 Body temperature 97.2 [degF] [facility] 09-05-2022 09:13-0400 Diastolic blood pressure 69 mm[Hg] [facility] 09-05-2022 09:13-0400 Heart rate 57 /min [facility] 09-05-2022 09:13-0400 Respiratory rate 20 /min [facility] 09-05-2022 09:13-0400 Systolic blood pressure 143 mm[Hg] [facility] 08-15-2022 08:39-0500 Inhaled oxygen flow rate 2 L/min [facility] 08-06-2022 00:35-0500 Body weight 91.77 kg [facility] 08-01-2022 09:18-0500 Body mass index (BMI) [Ratio] 34.7 kg/m2 [facility] 08-01-2022 09:18-0500 Body temperature 97 [degF] [facility] 08-01-2022 09:18-0500 Diastolic blood pressure 63 mm[Hg] [facility] 08-01-2022 09:18-0500 Heart rate 66 /min [facility] 08-01-2022 09:18-0500 Respiratory rate 20 /min [facility] 08-01-2022 09:18-0500 Systolic blood pressure 118 mm[Hg] [facility] 07-25-2022 09:08-0500 Body height 162.56 cm [facility] 07-25-2022 09:08-0500 Body weight 91.77 kg [facility] 07-17-2022 10:15-0500 Body weight 92.99 kg Jalyn Smith MD Work Phone: [facility] 07-17-2022 10:15-0500 Diastolic blood pressure 82 mm[Hg] Jalyn Smith MD Work Phone: [facility] 07-17-2022 10:15-0500 Heart rate 64 /min Jalyn Smith MD Work Phone: [facility] 07-17-2022 10:15-0500 SaO2% (BldA) [Mass fraction] 95 % Jalyn Smith MD Work Phone: [facility] 07-17-2022 10:15-0500 Systolic blood pressure 124 mm[Hg] Jalyn Smith MD Work Phone: [facility] 06-20-2022 09:39-0500 Body weight 91.63 kg Zackery Mayfield MD Work Phone: [facility] 06-20-2022 09:39-0500 SaO2% (BldA) [Mass fraction] 90 % Zackery Mayfield MD Work Phone: [facility] 03-20-2022 10:45-0400 Body height 162.6 cm Jalyn Smith MD Work Phone: [facility] 03-20-2022 10:45-0400 Body weight 94.8 kg Jalyn Smith MD Work Phone: [facility] 03-20-2022 10:45-0400 Diastolic blood pressure 68 mm[Hg] Jalyn Smith MD Work Phone: [facility] 03-20-2022 10:45-0400 Heart rate 59 /min Jalyn Smith MD Work Phone: [facility] 03-20-2022 10:45-0400 SaO2% (BldA) [Mass fraction] 95 % Jalyn Smith MD Work Phone: [facility] 03-20-2022 10:45-0400 Systolic blood pressure 108 mm[Hg] Jalyn Smith MD Work Phone: [facility] 02-07-2022 08:40-0400 Body mass index (BMI) [Ratio] 36.4 kg/m2 [facility] Work Phone: 02-07-2022 08:40-0400 Body temperature 97.3 [degF] [facility] Work Phone: 02-07-2022 08:40-0400 Diastolic blood pressure 82 mm[Hg] [facility] Work Phone: 02-07-2022 08:40-0400 Heart rate 72 /min [facility] Work Phone: 02-07-2022 08:40-0400 Systolic blood pressure 126 mm[Hg] [facility] Work Phone: 02-06-2022 00:31-0400 Body weight 96.33 kg [facility] Work Phone: 02-06-2022 00:31-0400 Inhaled oxygen flow rate 2 L/min [facility] Work Phone: 02-06-2022 00:31-0400 Respiratory rate 18 /min [facility] Work Phone: 01-24-2022 10:21-0400 Body mass index (BMI) [Ratio] 36.4 kg/m2 [facility] Work Phone: 01-24-2022 10:21-0400 Body temperature 96.2 [degF] [facility] Work Phone: 01-24-2022 10:21-0400 Diastolic blood pressure 77 mm[Hg] [facility] Work Phone: 01-24-2022 10:21-0400 Heart rate 69 /min [facility] Work Phone: 01-24-2022 10:21-0400 Systolic blood pressure 126 mm[Hg] [facility] Work Phone: 01-06-2022 00:29-0400 Body weight 96.33 kg [facility] Work Phone: 01-06-2022 00:29-0400 Inhaled oxygen flow rate 2 L/min [facility] Work Phone: 01-06-2022 00:29-0400 Respiratory rate 18 /min [facility] Work Phone: 01-03-2022 08:39-0400 Body mass index (BMI) [Ratio] 36.4 kg/m2 Dr. Jalyn Smith Work Phone: [facility] Work Phone: 01-03-2022 08:39-0400 Body temperature 97.3 [degF] Dr. Jalyn Smith Work Phone: [facility] Work Phone: 01-03-2022 08:39-0400 Diastolic blood pressure 55 mm[Hg] Dr. Jalyn Smith Work Phone: [facility] Work Phone: 01-03-2022 08:39-0400 Heart rate 68 /min Dr. Jalyn Smith Work Phone: [facility] Work Phone: 01-03-2022 08:39-0400 Respiratory rate 18 /min Dr. Jalyn Smith Work Phone: [facility] Work Phone: 01-03-2022 08:39-0400 Systolic blood pressure 119 mm[Hg] Dr. Jalyn Smith Work Phone: [facility] Work Phone: 12-06-2021 00:38-0400 Body weight 96.[address] Jalyn Smith Work Phone: [facility] Work Phone: 12-06-2021 00:38-0400 Inhaled oxygen flow rate 2 L/min Dr. Jalyn Smith Work Phone: [facility] Work Phone: 11-29-2021 08:57-0400 Body mass index (BMI) [Ratio] 36.4 kg/m2 Dr. Jalyn Smith Work Phone: [facility] Work Phone: 11-29-2021 08:57-0400 Body temperature 99.6 [degF] Dr. Jalyn Smith Work Phone: [facility] Work Phone: 11-29-2021 08:57-0400 Diastolic blood pressure 80 mm[Hg] Dr. Jalyn Smith Work Phone: [facility] Work Phone: 11-29-2021 08:57-0400 Heart rate 81 /min Dr. Jalyn Smith Work Phone: [facility] Work Phone: 11-29-2021 08:57-0400 Respiratory rate 18 /min Dr. Jalyn Smith Work Phone: [facility] Work Phone: 11-29-2021 08:57-0400 Systolic blood pressure 144 mm[Hg] Dr. Jalyn Smith Work Phone: [facility] Work Phone: 11-06-2021 01:06-0400 Body weight 96.[address] Jalyn Smith Work Phone: [facility] Work Phone: 11-06-2021 01:06-0400 Inhaled oxygen flow rate 2 L/min Dr. Jalyn Smith Work Phone: [facility] Work Phone: 11-05-2021 08:26-0400 Body mass index (BMI) [Ratio] 36.4 kg/m2 Dr. Jalyn Smith Work Phone: [facility] Work Phone: 11-05-2021 08:26-0400 Diastolic blood pressure 98 mm[Hg] Dr. Jalyn Smith Work Phone: [facility] Work Phone: 11-05-2021 08:26-0400 Heart rate 76 /min Dr. Jalyn Smith Work Phone: [facility] Work Phone: 11-05-2021 08:26-0400 Systolic blood pressure 148 mm[Hg] Dr. Jalyn Smith Work Phone: [facility] Work Phone: 10-31-2021 12:57-0400 Body temperature 98.3 [degF] Dr. Jalyn Smith Work Phone: [facility] Work Phone: 10-31-2021 12:57-0400 Respiratory rate 20 /min Dr. Jalyn Smith Work Phone: [facility] Work Phone: 10-18-2021 08:55-0400 Inhaled oxygen flow rate 2 L/min Dr. Jalyn Smith Work Phone: [facility] Work Phone: 10-06-2021 00:48-0400 Body weight 96.[address] Jalyn Smith Work Phone: [facility] Work Phone: 10-04-2021 10:43-0400 Body mass index (BMI) [Ratio] 36.4 kg/m2 Dr. Jalyn Smith Work Phone: [facility] Work Phone: 10-04-2021 10:43-0400 Body temperature 97 [degF] Dr. Jalyn Smith Work Phone: [facility] Work Phone: 10-04-2021 10:43-0400 Diastolic blood pressure 71 mm[Hg] Dr. Jalyn Smith Work Phone: [facility] Work Phone: 10-04-2021 10:43-0400 Heart rate 70 /min Dr. Jalyn Smith Work Phone: [facility] Work Phone: 10-04-2021 10:43-0400 Respiratory rate 18 /min Dr. Jalyn Smith Work Phone: [facility] Work Phone: 10-04-2021 10:43-0400 Systolic blood pressure 160 mm[Hg] Dr. Jalyn Smith Work Phone: [facility] Work Phone: 09-26-2021 13:20-0400 Body height 162.[address] Jalyn Smith Work Phone: [facility] Work Phone: 09-26-2021 13:20-0400 Body weight 96.[address] Jalyn Smith Work Phone: [facility] Work Phone: 09-18-2021 16:24-0400 Body weight 97.07 kg Jalyn Smith MD Work Phone: [facility] 09-18-2021 16:24-0400 Diastolic blood pressure 62 mm[Hg] Jalyn Smith MD Work Phone: [facility] 09-18-2021 16:24-0400 Heart rate 74 /min Jalyn Smith MD Work Phone: [facility] 09-18-2021 16:24-0400 SaO2% (BldA) [Mass fraction] 98 % Jalyn Smith MD Work Phone: [facility] 09-18-2021 16:24-0400 Systolic blood pressure 122 mm[Hg] Jalyn Smith MD Work Phone: [facility] 09-13-2021 15:00-0400 Diastolic blood pressure 78 mm[Hg] MAN Rodríguez PA-C Work Phone: [facility] 09-13-2021 15:00-0400 Heart rate 88 /min NA Rodríguez PA-C Work Phone: [facility] 09-13-2021 15:00-0400 SaO2% (BldA) [Mass fraction] 100 % NA Rodríguez PA-C Work Phone: [facility] 09-13-2021 15:00-0400 Systolic blood pressure 132 mm[Hg] NA Rodríguez PA-C Work Phone: [facility] 08-30-2021 12:07-0400 Body mass index (BMI) [Ratio] 38.9 kg/m2 Dr. Jalyn Smith Work Phone: [facility] Work Phone: 08-30-2021 12:07-0400 Body temperature 96.8 [degF] Dr. Jalyn Smith Work Phone: [facility] Work Phone: 08-30-2021 12:07-0400 Body weight 96.[address] Jalyn Smith Work Phone: [facility] Work Phone: 08-30-2021 12:07-0400 Diastolic blood pressure 71 mm[Hg] Dr. Jalyn Smith Work Phone: [facility] Work Phone: 08-30-2021 12:07-0400 Heart rate 64 /min Dr. Jalyn Smith Work Phone: [facility] Work Phone: 08-30-2021 12:07-0400 Respiratory rate 17 /min Dr. Jalyn Smith Work Phone: [facility] Work Phone: 08-30-2021 12:07-0400 SaO2% (BldA) [Mass fraction] 100 % Dr. Jalyn Smith Work Phone: [facility] Work Phone: 08-30-2021 12:07-0400 Systolic blood pressure 158 mm[Hg] Dr. Jalyn Smith Work Phone: [facility] Work Phone: 08-09-2021 08:19-0500 Body temperature 98.4 [degF] Dr. Jalyn Smith Work Phone: [facility] Work Phone: 08-09-2021 08:19-0500 Diastolic blood pressure 60 mm[Hg] Dr. Jalyn Smith Work Phone: [facility] Work Phone: 08-09-2021 08:19-0500 Heart rate 83 /min Dr. Jalyn Smith Work Phone: [facility] Work Phone: 08-09-2021 08:19-0500 Respiratory rate 18 /min Dr. Jalyn Smith Work Phone: [facility] Work Phone: 08-09-2021 08:19-0500 SaO2% (BldA) [Mass fraction] 94 % Dr. Jalyn Smith Work Phone: [facility] Work Phone: 08-09-2021 08:19-0500 Systolic blood pressure 99 mm[Hg] Dr. Jalyn Smith Work Phone: [facility] Work Phone: 08-06-2021 10:40-0500 Body weight 95.[address] Jalyn Smith Work Phone: [facility] Work Phone: 08-03-2021 13:23-0500 Inhaled oxygen concentration 4 % Dr. Jalyn Smith Work Phone: [facility] Work Phone: 07-25-2021 20:02-0500 Body mass index (BMI) [Ratio] 36.3 kg/m2 Dr. Jalyn Smith Work Phone: [facility] Work Phone: 07-25-2021 17:49-0500 Heart rate 78 /min Dr. Jalyn Smith Work Phone: [facility] Work Phone: 07-25-2021 17:49-0500 Respiratory rate 18 /min Dr. Jalyn Smith Work Phone: [facility] Work Phone: 07-25-2021 16:56-0500 Body temperature 98.5 [degF] Dr. Jalyn Smith Work Phone: [facility] Work Phone: 07-25-2021 16:56-0500 Diastolic blood pressure 73 mm[Hg] Dr. Jalyn Smith Work Phone: [facility] Work Phone: 07-25-2021 16:56-0500 SaO2% (BldA) [Mass fraction] 94 % Dr. Jalyn Smith Work Phone: [facility] Work Phone: 07-25-2021 16:56-0500 Systolic blood pressure 120 mm[Hg] Dr. Jalyn Smith Work Phone: [facility] Work Phone: 07-25-2021 00:08-0500 Body mass index (BMI) [Ratio] 39.8 kg/m2 Dr. Jalyn Smith Work Phone: [facility] Work Phone: 07-25-2021 00:08-0500 Body weight 102.[address] Jalyn Smith Work Phone: [facility] Work Phone: 12-23-2018 16:15-0400 Body temperature 36.4 Deg [facility] Comment on above: Performed By: #### [id number] #### [place] [id number] 12-23-2018 05:49-0400 Body temperature 36.9 Deg [facility] Comment on above: Performed By: #### ABG #### [facility] [address] [place], [place] [address] Encounters Encounter Date Encounter Type Care Provider Facility Start: 03-22-2025 End: 03-22-2025 ambulatory JALYN SMITH Facility:[facility] Start: 03-22-2025 End: 03-22-2025 ambulatory JALYN SMITH Facility:[facility] Start: 03-22-2025 Patient encounter procedure JALYN SMITH [facility] Start: 03-08-2025 End: 03-08-2025 ambulatory ORAL PERDUE Facility:[facility] Start: 01-29-2025 End: 01-31-2025 Refill Ann Hutchinson MD Work Phone: Pulmonology Comment on above: Refill Request Start: 01-24-2025 End: 01-25-2025 Telephone encounter Jalyn Smith MD Work Phone: [facility] Comment on above: Forms Start: 01-20-2025 End: 01-20-2025 ambulatory Jlayn Smith MD Work Phone: [facility] Start: 01-20-2025 End: 01-20-2025 Patient encounter procedure Jalyn Smith MD Work Phone: [facility] Comment on above: Population Health Na vigation Outreach (Ann Dotson ) Start: 01-13-2025 End: 01-16-2025 ambulatory Zackery Mayfield MD Work Phone: Pulmonary Medicine Comment on above: Oxygen equipment Start: 01-09-2025 End: 01-09-2025 Telephone encounter Jalyn Smith MD Work Phone: [facility] Comment on above: Surgical Clearance Start: 01-08-2025 End: 01-09-2025 ambulatory Jalyn Smith MD Work Phone: [facility] Comment on above: Ferrous sulf Start: 12-21-2024 End: 12-21-2024 ambulatory Jalyn Smith MD Work Phone: [facility] Start: 12-21-2024 End: 12-21-2024 Patient encounter procedure Jalyn Smith MD Work Phone: [facility] Comment on above: Population Health Na vigation Outreach (Ann Montgomeryoster ) Start: 12-15-2024 End: 12-15-2024 ambulatory Jalyn Smith MD Work Phone: [facility] Comment on above: UTI? Start: 12-07-2024 End: 12-15-2024 Admission to same day surgery center Yaniv Todd MD Work Phone: Vascular Surgery Comment on above: Cataract surgery Start: 12-07-2024 End: 12-15-2024 ambulatory Yaniv Todd MD Work Phone: Vascular Surgery Start: 12-04-2024 End: 12-06-2024 Admission to same day surgery center Yaniv Todd MD Work Phone: V[facility] Surgery Comment on above: Appointment and Dr Rehana Harman Start: 12-04-2024 End: 12-06-2024 ambulatory Yaniv Todd MD Work Phone: Vascular Surgery Start: 12-03-2024 End: 12-05-2024 ambulatory Jalyn Smith MD Work Phone: [facility] [place] Comment on above: Meds Start: 12-02-2024 End: 12-02-2024 Subsequent hospital visit by physician [facility] Radiology Comment on above: 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] Start: 12-02-2024 End: 12-02-2024 ambulatory JALYN SMITH Facility:[facility] Start: 11-30-2024 End: 11-30-2024 ambulatory Zackery Mayfield MD Work Phone: Pulmonary Medicine Comment on above: Breztri Start: 11-28-2024 End: 11-29-2024 ambulatory Jalyn Smith MD Work Phone: [facility] [place] Comment on above: Meds Start: 11-21-2024 End: 11-21-2024 ambulatory Jalyn Smith MD Work Phone: [facility] [place] Start: 11-21-2024 End: 11-21-2024 Patient encounter procedure Jalyn Smith MD Work Phone: [facility] [place] Comment on above: Population Health Na vigation Outreach ([facility] [place] ) Start: 11-10-2024 End: 11-10-2024 Orders Only Yaniv Todd MD Work Phone: Vascular Surgery Comment on above: 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) Start: 11-04-2024 End: 11-04-2024 ambulatory Jalyn Smith MD Work Phone: [facility] [place] Comment on above: Ct Start: 11-01-2024 End: 11-01-2024 ambulatory Jalyn Smith MD Work Phone: [facility] [place] Comment on above: New presciption Ct scan Start: 10-18-2024 End: 10-18-2024 ambulatory Jalyn Smith MD Work Phone: [facility] [place] Comment on above: Ropinirole Start: 10-10-2024 End: 10-10-2024 ambulatory Katherine Gómez RN [employer] Comment on above: Primary Care Coordin ator- Other Start: 10-05-2024 End: 10-05-2024 ambulatory Jalyn Smith MD Work Phone: [facility] [place] Comment on above: Ropinirole Start: 10-03-2024 End: 10-03-2024 Refill Jalyn Smith MD Work Phone: [facility] [place] Comment on above: Refill Request Start: 09-30-2024 End: 10-03-2024 Refill Jalyn Smith MD Work Phone: [facility] [place] Comment on above: Refill Request Start: 09-20-2024 End: 09-21-2024 Refill Jalyn Smith MD Work Phone: [facility] [place] Comment on above: Refill Request Start: 09-08-2024 End: 11-08-2024 Follow-up encounter Jalyn Smith MD Work Phone: Pulmonology [facility] Start: 09-07-2024 End: 09-07-2024 Patient encounter procedure Jalyn Smith MD Work Phone: [facility] [place] Comment on above: Urinary tract infect ion without hematuria, site unspecified (Primary Dx); Essential hypertension; Type 2 diabetes mellitus without complication, without long-term current use of insulin (HCC); Acute constipation; Abdominal pain, unspecified abdominal location; Chronic respiratory failure with hypoxia (HCC) Start: 09-07-2024 End: 09-07-2024 ambulatory [facility] Comment on above: Cataract Start: 09-04-2024 End: 09-04-2024 Emergency department patient visit Dr. Jalyn Smith MD Work Phone: -Emergency Department Work Phone: Start: 2024 End: 2024 Telephone encounter Jalyn Smith MD Work Phone: [facility] Comment on above: Patient Question Start: 08-25-2024 End: 08-25-2024 ambulatory Jalyn Smith MD Work Phone: [facility] [place] Start: 08-25-2024 End: 08-25-2024 Patient encounter procedure Jalyn Smith MD Work Phone: [facility] [place] Comment on above: Population Health Na vigation Outreach ([employer] [facility] [place] ) Start: 08-03-2024 End: 08-03-2024 Get Medical Advice Jalyn Smith MD Work Phone: [facility] Comment on above: refills Refill Request Start: 08-02-2024 End: 08-02-[address] Jalyn Smith MD Work Phone: [facility] Work Phone: Start: 08-02-2024 End: 08-02-[address] Chin Paul MD -Laboratory Work Phone: Start: 08-02-2024 End: 08-02-2024 ambulatory Chin Paul Facility:[facility] Start: 06-07-2024 End: 06-09-2024 Refill Jalyn Smith MD Work Phone: [facility] Comment on above: Refill Request Start: 05-16-2024 End: 05-17-2024 Refill Jalyn Smith MD Work Phone: [facility] Comment on above: Refill Request Start: 05-16-2024 End: 05-17-2024 Refill Juhi Nolasco PA-C Work Phone: Pulmonary Medicine Comment on above: Med Change Request Start: 05-13-2024 End: 05-16-2024 Admission to same day surgery center Jalyn Smith MD Work Phone: [facility] Comment on above: knee surgery Start: 05-13-2024 End: 05-16-2024 ambulatory Jalyn Smith MD Work Phone: [facility] Start: 04-28-2024 End: 04-28-2024 ambulatory Selene Anaya RN Work Phone: [employer] Comment on above: community monitoring (CDM telephonic/) Start: 04-14-2024 End: 04-14-2024 ambulatory Jalyn Smith MD Work Phone: [facility] Comment on above: magnesium Start: 04-14-2024 End: 04-14-2024 Telephone encounter Jalyn Smith MD Work Phone: [facility] Comment on above: Results Start: 04-13-2024 End: 04-13-2024 ambulatory JALYN SMITH Facility:[facility] Start: 04-10-2024 End: 04-11-2024 Refill Fay Leone APRN.CNP Work Phone: Pulmonology Comment on above: Refill Request Start: 03-31-2024 End: 03-31-2024 ambulatory Selene Anaya RN Work Phone: [employer] Comment on above: community monitoring (CDM telephonic/) Start: 03-29-2024 End: 03-29-2024 Telephone encounter Zackery Mayfield MD Work Phone: Pulmonary Medicine Start: 03-28-2024 End: 03-29-2024 ambulatory Juhi Nolasco PA-C Work Phone: Pulmonary Medicine Comment on above: oxygen tanks Start: 03-11-2024 End: 03-11-2024 Telephone encounter Jalyn Smith MD Work Phone: [facility] [place] Comment on above: Results Start: 03-09-2024 End: 03-09-2024 Patient encounter procedure Jalyn Smith MD Work Phone: [facility] [place] Comment on above: Essential hypertensi on (Primary Dx); Encounter for immunization; Thoracic aortic aneurysm without rupture, unspecified part (HCC); NYHA class 2 and ACC/AHA stage C acute on chronic systolic congestive heart failure (HCC); Abdominal aortic aneurysm (AAA) without rupture, unspecified part (HCC); 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); Dissection of thoracoabdominal aorta (HCC); MICHEL (obstructive sleep apnea); Chronic respiratory failure with hypoxia (HCC); On home oxygen therapy; Centrilobular emphysema (HCC); Type 2 diabetes mellitus without complication, without long-term current use of insulin (HCC); Recurrent major depression in partial remission (HCC); Degeneration of intervertebral disc of lumbar region, unspecified whether pain present; Class 1 obesity with body mass index (BMI) of 30.0 to 30.9 in adult, unspecified obesity type, unspecified whether serious comorbidity present; RLS (restless legs syndrome); Stage 3 chronic kidney disease, unspecified whether stage 3a or 3b CKD (HCC); Anemia, unspecified type; Encounter for screening examination for other mental health and behavioral disorders Start: 03-02-2024 End: 03-03-2024 ambulatory Selene Anaya RN Work Phone: [employer] Comment on above: community monitoring ([facility] telephonic/) Refill Request refills Start: 02-27-2024 End: 02-29-2024 Refill Jalyn Smith MD Work Phone: [facility] [place] Comment on above: Refill Request Start: 02-09-2024 End: 02-09-2024 Refill Casandra Kinsey [employer] SPECIALTYLeslyREFINERY OPERATOR HELPER Work Phone: [facility] [place] Comment on above: Refill Request Start: 02-03-2024 End: 02-03-2024 ambulatory Selene Anaya RN Work Phone: [employer] Comment on above: community monitoring ([facility] telephonic/) Start: 02-01-2024 End: 02-01-2024 ambulatory Juhi Nolasco PA-C Work Phone: Pulmonary Medicine Comment on above: Breztri Start: 01-11-2024 Refill Jalyn Smith MD Work Phone: [employer] Comment on above: Refill Request community monitoring ([facility] telephonic/) Start: 01-06-2024 End: 01-06-2024 Patient encounter procedure Juhi Nolasco PA-C Work Phone: Pulmonary Medicine Comment on above: COPD, severe (HCC) ( Primary Dx); Chronic respiratory failure with hypoxia (HCC); Former cigarette smoker; Class 2 obesity Start: 12-14-2023 ambulatory Selene quinones RN Work Phone: [employer] Comment on above: community monitoring ([facility] telephonic/) Start: 11-18-2023 Refill Juhi Velazquez PA-C Work Phone: Pulmonary Medicine Comment on above: Refill Request; Open ed In Error Kayla Start: 11-16-2023 ambulatory Selene quinones RN Work Phone: [employer] Start: 11-12-2023 Refill Jalyn Smith MD Work Phone: [facility] [place] Comment on above: Refill Request Start: 11-05-2023 ambulatory Juhi Velazquez PA-C Work Phone: Pulmonary Medicine Comment on above: proviter Start: 11-05-2023 End: 11-05-2023 Patient encounter procedure Yaniv Todd MD Work Phone: Vascular Surgery Comment on above: Dissection of thorac oabdominal aorta (HCC) (Primary Dx); 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); Thoracic aortic aneurysm without rupture, unspecified part (HCC); Type 2 diabetes mellitus with diabetic nephropathy, with long-term current use of insulin (HCC); NYHA class 2 and ACC/AHA stage C acute on chronic systolic congestive heart failure (HCC) Start: 11-03-2023 ambulatory Jahaira Fletcher RN [employer] Comment on above: General Questions change of provider Start: 10-28-2023 Refill Jalyn Smith MD Work Phone: [facility] [place] Comment on above: Refill Request Start: 10-26-2023 ambulatory Zackery Mayfield MD Work Phone: Pulmonary Medicine Comment on above: inhaler Start: 10-19-2023 ambulatory Selene quinones RN Work Phone: [employer] Comment on above: community monitoring ([facility] telephonic/) Start: 10-14-2023 End: 10-14-2023 Subsequent hospital visit by physician [facility] Radiology Comment on above: Thoracic aortic aneu rysm without rupture, unspecified part ([facility]) [I71.20] Start: 10-02-2023 Refill Jalyn Smith MD Work Phone: [facility] [place] Comment on above: Refill Request Start: 09-30-2023 End: 09-30-2023 ambulatory Pulm Lab [facility] Work Phone: PULM LAB [facility] Comment on above: Spirometry Start: 09-30-2023 End: 09-30-2023 Patient encounter procedure Pulm Lab [facility] Work Phone: PULM LAB [facility] Start: 09-30-2023 End: 09-30-2023 Patient encounter procedure Juhi Nolasco PA-C Work Phone: Pulmonary Medicine Comment on above: Pneumonia of both lo wer lobes due to infectious organism (Primary Dx); COPD, severe (HCC); Chronic respiratory failure with hypoxia (HCC); Former cigarette smoker; Class 2 obesity Start: 09-24-2023 Telephone encounter Yaniv redman MD Work Phone: [facility] Comment on above: Patient Update Results Start: 09-22-2023 ambulatory [facility] Provider [facility] Comment on above: Testing Start: 09-22-2023 E-mail encounter jessica quinones caregiver [facility] Provider [facility] Start: 09-21-2023 End: 09-21-2023 Patient encounter procedure Yaniv Todd MD Work Phone: [facility] Comment on above: Thoracic aortic aneu rysm without rupture, unspecified part (HCC) (Primary Dx); Dissection of descending aorta (HCC); Abdominal aortic aneurysm (AAA) without rupture, unspecified part (HCC); Centrilobular emphysema (HCC); Dissection of thoracoabdominal aorta (HCC) Start: 09-21-2023 End: 09-21-2023 ambulatory Selene Anaya RN Work Phone: [employer] Comment on above: community monitoring ([facility] telephonic/) Start: 09-15-2023 ambulatory Jalyn Smith MD Work Phone: [facility] [place] Comment on above: metoprotol Start: 09-14-2023 Refill Jalyn Smith MD Work Phone: [facility] [place] Comment on above: Refill Request Start: 09-11-2023 Refill Casandra sweeney APRN.CNS Work Phone: [facility] [place] Comment on above: Refill Request Start: 09-10-2023 Telephone encounter Zackery Mayfield MD Work Phone: Pulmonary Medicine Comment on above: Patient Update; Orde rs Start: 09-09-2023 Telephone encounter Jalyn Smith MD Work Phone: [facility] [place] Comment on above: Results Appointment Start: 09-08-2023 End: 09-08-2023 Subsequent hospital visit by physician [facility] Work Phone: Radiology Comment on above: Bacterial pneumonia [J15.9] Start: 09-08-2023 End: 09-08-2023 Patient encounter procedure Jalyn Smith MD Work Phone: [facility] Comment on above: Bacterial pneumonia (Primary Dx); Type 2 diabetes mellitus without complication, without long-term current use of insulin (HCC); Chronic respiratory failure with hypoxia (HCC); MICHEL (obstructive sleep apnea) Start: 08-28-2023 End: 08-28-2023 [facility] Start: 08-28-2023 Telephone encounter Jalyn Smith MD Work Phone: [facility] Comment on above: Nurse Triage Call Start: 08-28-2023 End: 08-28-2023 ambulatory Nurse Intm/Famp Triage [facility] Work Phone: Nurse Phone Triage Comment on above: Abdominal Pain Start: 08-27-2023 ambulatory Zackery Mayfield MD Work Phone: Pulmonary Medicine Comment on above: breathing Start: 08-26-2023 Refill Casandra Kimball upcherie [employer].SECURITY ENGINEER Work Phone: [facility] Comment on above: Refill Request Start: 08-24-2023 ambulatory Selene quinones RN Work Phone: [employer] Comment on above: community monitoring ([facility] telephonic/) Refill Request Start: 08-17-2023 ambulatory Selene quinones RN Work Phone: [employer] Comment on above: community monitoring ([facility]M telephonic/) Start: 08-03-2023 Refill Jalyn Smith MD Work Phone: [facility] Comment on above: Refill Request Start: 07-24-2023 End: 07-24-2023 Patient encounter procedure Zackery Mayfield MD Work Phone: Pulmonary Medicine Comment on above: COPD, severe (HCC) ( Primary Dx); Chronic respiratory failure with hypoxia (HCC); Former cigarette smoker; Class 2 obesity Start: 07-20-2023 ambulatory Selene quinones RN Work Phone: [employer] Comment on above: community monitoring ([facility] telephonic/) Start: 07-16-2023 ambulatory Selene quinones RN Work Phone: [employer] Comment on above: community monitoring ([facility]M telephonic/) Start: 05-18-2023 Refill Zackery Mayfield MD Work Phone: Pulmonary Medicine Comment on above: Refill Request Start: 05-03-2023 Refill Jalyn Smith MD Work Phone: [facility] Comment on above: Refill Request Start: 04-22-2023 ambulatory Juliann Fleming RN Work Phone: [employer] Comment on above: Community monitoring outreach ([facility] Telephonic outreach) Start: 03-30-2023 Social Work Lizett Restrepo DOUBLE BACK OPERATOR Nate al Start: 03-27-2023 ambulatory Selene quinones RN Work Phone: [employer] Comment on above: community monitoring (CDM telephonic/) Refill Request Start: 03-12-2023 Get Medical Advice Vi Mayfield MD Work Phone: Pulmonary Medicine Comment on above: med refill Start: 02-18-2023 End: 02-18-[address] Jalyn Smith Work Phone: [facility] Work Phone: Start: 02-18-2023 End: 02-18-[address] Jalyn Smith Work Phone: [facility]-Laboratory Work Phone: Start: 02-10-2023 ambulatory Selene quinones RN Work Phone: [employer] Comment on above: community monitoring (CDM telephonic/) Start: 02-04-2023 Telephone encounter Jalyn Smith MD Work Phone: [facility] Comment on above: Forms Start: 01-22-2023 ambulatory No Pcp [employer] Jaspreet Curran Start: 01-21-2023 End: 01-21-[address] Jalyn Smith Work Phone: [facility] Work Phone: Start: 01-21-2023 End: 01-21-[address] Jalyn Smith Work Phone: [facility]-Radiology, [facility] Work Phone: Start: 01-21-2023 Telephone encounter Jalyn Smith MD Work Phone: Family [facility] Comment on above: Patient Update; Orde rs Start: 01-19-2023 End: 01-19-2023 Office outpatient visit 25 minutes Juhi Nolasco PA-C Work Phone: Pulmonary Medicine Comment on above: Chronic obstructive pulmonary disease, unspecified COPD type (HCC) (Primary Dx); Dependence on continuous supplemental oxygen; Former smoker; Class 2 obesity due to excess calories with body mass index (BMI) of 35.0 to 35.9 in adult, unspecified whether serious comorbidity present Start: 01-15-2023 Telephone encounter Jalyn Smith MD Work Phone: Family [facility] Comment on above: Pain Management Refe rral Start: 01-14-2023 Telephone encounter Jalyn Smith MD Work Phone: [facility] Comment on above: Results Start: 01-12-2023 ambulatory Selene quinones RN Work Phone: [employer] Comment on above: community monitoring ([facility] telephonic/) Start: 01-12-2023 End: 01-12-2023 Patient encounter procedure Jalyn Smith MD Work Phone: Family [facility] Comment on above: Diarrhea, unspecifie d type (Primary Dx); Microscopic hematuria; Rectal bleeding; Essential hypertension; Thoracic aortic aneurysm without rupture, unspecified part (HCC); Dissection of descending aorta (HCC); Chronic respiratory failure with hypoxia (HCC); Type 2 diabetes mellitus without complication, without long-term current use of insulin (HCC); Osteoarthritis of both knees, unspecified osteoarthritis type; DDD (degenerative disc disease), lumbar Start: 01-09-2023 End: 01-09-[address] Jalyn Smith Work Phone: [facility] Work Phone: Start: 01-09-2023 End: 01-09-[address] Jalyn Smith Work Phone: [facility]-Wound [facility]aling [facility] Work Phone: Start: 01-08-2023 Telephone encounter Jalyn Smith MD Work Phone: [facility] [place] Comment on above: [facility] OT POC update Refill Request Start: 12-15-2022 End: 12-15-2022 Non-patient / Non-visit Dr. Jalyn Smith Work Phone: [facility] Work Phone: Start: 12-15-2022 End: 01-02-2023 Evaluation and management of inpatient Dr. Jalyn Smith Work Phone: [facility]-Transitional Care Unit Start: 12-15-2022 ambulatory Selene quinones RN Work Phone: [employer] Comment on above: community monitoring (CDM telephonic/) Start: 12-15-2022 Non-patient / Non-visit Dr. Shasta Smith Work Phone: [facility] Work Phone: Start: 12-14-2022 Non-patient / Non-visit Dr. Shasta Smith Work Phone: [facility] Work Phone: Start: 12-13-2022 Non-patient / Non-visit Dr. Shasta Smith Work Phone: [facility] Work Phone: Start: 12-12-2022 Non-patient / Non-visit Dr. Shasta Smith Work Phone: [facility] Work Phone: Start: 12-11-2022 ambulatory Herminia KHAN [employer] Comment on above: Information Start: 12-11-2022 Non-patient / Non-visit Dr. Shasta Smith Work Phone: [facility] Work Phone: Start: 12-10-2022 Non-patient / Non-visit Dr. Shasta Smith Work Phone: [facility] Work Phone: Start: 12-10-2022 End: 12-15-2022 Evaluation and management of inpatient [facility]-Medical Surgical 3 Work Phone: Start: 12-10-2022 End: 12-15-[address] Jalyn Smith Work Phone: [facility] Work Phone: Start: 12-10-2022 End: 12-10-2022 Patient encounter procedure Jalyn Smith MD Work Phone: [facility] Comment on above: Essential hypertensi on (Primary Dx); Thoracic aortic aneurysm without rupture, unspecified part (HCC); MICHEL (obstructive sleep apnea); Type 2 diabetes mellitus without complication, without long-term current use of insulin (HCC); Osteoarthritis of both knees, unspecified osteoarthritis type; Anemia, unspecified type; Renal insufficiency; Microscopic hematuria; Melena; NYHA class 2 and ACC/AHA stage C acute on chronic systolic congestive heart failure (HCC) Start: 12-05-2022 Telephone encounter Jalyn Smith MD Work Phone: [facility] Comment on above: Patient Update Start: 12-05-2022 End: 12-05-2022 ambulatory [facility] Work Phone: Start: 12-05-2022 End: 12-05-2022 Discharged Recurring [facility] Work Phone: Start: 11-13-2022 ambulatory Selene quinones RN Work Phone: [employer] Comment on above: community monitoring (CDM telephonic/) Start: 10-24-2022 End: 11-05-2022 [facility] Work Phone: Start: 10-24-2022 End: 11-05-2022 [facility] Start: 10-15-2022 Refill Jalyn Smith MD Work Phone: [employer] Comment on above: Refill Request Start: 10-14-2022 ambulatory Darlene Brewster Work Phone: [employer] Comment on above: CDM (Check in call/) Start: 10-03-2022 End: 10-05-2022 [facility] Work Phone: Start: 10-03-2022 End: 10-05-2022 [facility] Start: 10-01-2022 End: 10-01-2022 Patient encounter procedure Jalyn Smith MD Work Phone: [facility] Comment on above: Essential hypertensi on (Primary Dx); Thoracic aortic aneurysm without rupture, unspecified part (HCC); Dissection of descending aorta (HCC); Centrilobular emphysema (HCC); MICHEL (obstructive sleep apnea); Chronic respiratory failure with hypoxia (HCC); Type 2 diabetes mellitus without complication, without long-term current use of insulin (HCC); Recurrent major depression in partial remission (HCC); Need for hepatitis C screening test Start: 09-27-2022 ambulatory Jalyn Smith MD Work Phone: [facility] Start: 09-27-2022 Patient encounter procedure Jalyn Smith MD Work Phone: [facility] Comment on above: appointment Start: 09-19-2022 ambulatory Amol Sinha RN NURS E [employer] Comment on above: Information Start: 09-11-2022 ambulatory Darlene [place] Work Phone: [employer] Comment on above: cdm (Check in call/) Start: 09-05-2022 End: 09-05-2022 [facility] Work Phone: Start: 09-05-2022 End: 09-05-2022 [facility] Start: 09-01-2022 Telephone encounter Dayami Darby MD Work Phone: [facility] Comment on above: Appointment (Appoint ment) Start: 08-06-2022 ambulatory Darlene Salazar N Work Phone: [employer] Comment on above: CDM (Check in call/) Start: 08-01-2022 End: 08-05-2022 ambulatory [facility] Work Phone: Start: 08-01-2022 End: 08-05-2022 [facility] Start: 07-21-2022 Refill Jalyn Smith MD Work Phone: [facility] Comment on above: Refill Request Start: 07-17-2022 End: 07-17-2022 Patient encounter procedure Jalyn Smith MD Work Phone: [facility] Comment on above: Venous stasis ulcer of right calf without varicose veins, unspecified ulcer stage (HCC) (Primary Dx); Essential hypertension; Type 2 diabetes mellitus without complication, without long-term current use of insulin (HCC) Start: 07-15-2022 Telephone encounter Jalyn Smith MD Work Phone: [address] [place] [address] Comment on above: Orders Start: 07-08-2022 ambulatory Darlenetrey Salazar N Work Phone: [employer] Comment on above: CDM (Check in call/) Start: 07-02-2022 Refill Juhi Velazquez PA-C Work Phone: Pulmonary Medicine Comment on above: Refill Request Start: 06-30-2022 [facility] Get Medical Advice Jalyn Smith MD Work Phone: [facility] Comment on above: auto refill Refill Request Start: 06-26-2022 Refill Jalyn Smith MD Work Phone: [facility] Comment on above: Refill Request Start: 06-23-2022 ambulatory Zackery Mayfield MD Work Phone: Pulmonary Medicine Comment on above: non urgent question Start: 06-20-2022 End: 06-20-2022 Patient encounter procedure Zackery Mayfield MD Work Phone: Pulmonary Medicine Comment on above: Stage 3 severe COPD by GOLD classification ([facility]) (Primary Dx); Dependence on continuous supplemental oxygen; Class 1 obesity due to excess calories with body mass index (BMI) of 34.0 to 34.9 in adult, unspecified whether serious comorbidity present Start: 06-13-2022 ambulatory Verónica Sanchez MA [facility] [place] Comment on above: Population Health Na vigation Outreach (hcc) Start: 06-10-2022 ambulatory Darlene Urbano R N Work Phone: [employer] Comment on above: cdm (Check in call/) Start: 06-06-2022 ambulatory Darlene Urbano R N Work Phone: [employer] Comment on above: CDM (Check in call/) Start: 05-09-2022 Refill Juhi Velazquez PA-C Work Phone: Pulmonary Medicine Comment on above: Refill Request Start: 05-07-2022 ambulatory Darlene Urbano R N Work Phone: [employer] Comment on above: CDM (Check in call/) Start: 04-18-2022 Telephone encounter Dayami Darby MD Work Phone: [facility] Comment on above: Appointment (Appoint ment) Start: 04-18-2022 End: 04-18-2022 Subsequent hospital visit by physician Vera [facility] (I-Stat) Work Phone: Cat Scan Comment on above: 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] Start: 04-07-2022 ambulatory Darlene Islas May R N Work Phone: [employer] [employer] Start: 04-07-2022 Follow-up encounter Darlene blackman RN Work Phone: [employer] Comment on above: Community Monitoring Outreach (inSight questionnaire follow up/) Start: 03-26-2022 ambulatory Maria Alejandra fernández [employer].REFINERY OPERATOR HELPER Work Phone: Pulmonary Medicine Start: 03-25-2022 ambulatory Violeta Chandra RN Work Phone: [employer] Comment on above: Patient Question (Re garding return of Cologuard ) Start: 03-20-2022 End: 03-20-2022 Patient encounter procedure Jalyn Smith MD Work Phone: [facility] [place] Comment on above: Thoracic aortic aneu rysm without rupture, unspecified part (Primary Dx); Essential hypertension; Dissection of descending aorta (HCC); MICHEL (obstructive sleep apnea); Type 2 diabetes mellitus without complication, without long-term current use of insulin (HCC); Centrilobular emphysema (HCC); DDD (degenerative disc disease), lumbar; Screen for colon cancer; Need for influenza vaccination; Need for vaccination Dissection of descen ding thoracic aorta (Primary Dx); Aortic dissection, abdominal (HCC) Start: 03-17-2022 [facility] Comment on above: Population Health Na vigation Outreach ([facility] [employer] [place]) Start: 03-12-2022 Telephone encounter Lizett Kidd Comment on above: Social Work Services Start: 03-11-2022 ambulatory Darlene Brewster Work Phone: [employer] Start: 03-11-2022 Follow-up encounter Darlene blackman RN Work Phone: [employer] Comment on above: community monitoring outreach (inSight questionnaire follow up/) Start: 03-10-2022 ambulatory Darlene Salazar N Work Phone: [employer] Start: 03-10-2022 Follow-up encounter Darlene blackman RN Work Phone: [employer] Comment on above: Community Monitoring Outreach (inSight questionnaire follow up/) Start: 03-06-2022 Refill Jalyn Smith MD Work Phone: [facility] [place] Comment on above: Refill Request Start: 02-25-2022 Refill Jalyn Smith MD Work Phone: [facility] [place] Comment on above: Refill Request Start: 02-19-2022 ambulatory Darlene Islas May R N Work Phone: [employer] Comment on above: community monitorion g outreach (inSight enrollment with [facility] introduction/) Start: 02-17-2022 ambulatory Darlene Islas May R N Work Phone: [employer] Comment on above: community monitoring outreach (inSight enrollment with [facility] introduction/) Start: 02-14-2022 ambulatory Darlene Urbano R N Work Phone: [employer] Comment on above: community monitoring outreach (inSight enrollment with [facility] introduction/) Start: 02-14-2022 Follow-up encounter Jalyn Smith MD Work Phone: [facility] [place] Comment on above: follow up Start: 02-09-2022 ambulatory Darlene Urbano R N Work Phone: [employer] Comment on above: community monitoring outreach (inSight enrollment with [facility] introduction/) Start: 02-07-2022 End: 02-13-2022 ambulatory [facility] Work Phone: Start: 02-07-2022 End: 02-13-2022 [facility] Start: 02-05-2022 Telephone encounter Jalyn Smith MD Work Phone: [facility] [place] Comment on above: Insurance Authorizat ion Start: 01-31-2022 Refill Jalyn Smith MD Work Phone: [facility] [place] Comment on above: Refill Request Start: 01-24-2022 End: 02-05-2022 ambulatory [facility] Work Phone: Start: 01-24-2022 End: 02-05-2022 [facility] Start: 01-03-2022 End: 01-05-[address] Jalyn Smith Work Phone: [facility] Start: 12-21-2021 ambulatory Jalyn Smith MD Work Phone: [facility] Start: 12-21-2021 Follow-up encounter Jalyn Smith MD Work Phone: [facility] [place] Comment on above: follow-up Start: 12-20-2021 Refill Jalyn Smith MD Work Phone: [facility] [place] Comment on above: Refill Request Start: 12-01-2021 Refill Jalyn Smith MD Work Phone: [facility] [place] Comment on above: Refill Request Start: 11-29-2021 End: 12-05-[address] Jalyn Smith [facility] Phone[facility] Start: 11-05-2021 End: 11-05-[address] Jalyn Smith Work Phone: [facility] Start: 10-28-2021 Refill Jalyn Smith MD Work Phone: [facility] [place] Comment on above: Refill Request Start: 10-26-2021 Refill Jalyn Smith MD Work Phone: [facility] [place] Comment on above: Refill Request Start: 10-24-2021 ambulatory Jalyn Smith MD Work Phone: [facility] [place] Comment on above: knees Refill Request Start: 10-04-2021 End: 10-05-[address] Jalyn Smith [facility] Phone: [facility] Start: 09-26-2021 Non-patient / Non-visit Dr. Shasta Smith Work Phone: [facility] Start: 09-23-2021 Refill Juhi Velazquez PA-C Work Phone: Pulmonary Medicine Comment on above: Refill Request Start: 09-19-2021 Refill Jalyn Smith MD Work Phone: [facility] [place] Comment on above: Refill Request Start: 09-18-2021 End: 09-18-2021 Patient encounter procedure Jalyn Smith MD Work Phone: [facility] [place] Comment on above: Wound of left lower extremity, subsequent encounter (Primary Dx) Start: 09-13-2021 End: 09-13-2021 Patient encounter procedure Anthony Rodríg[facility] PA-C [facility] Comment on above: Puncture wound of le ft calf (Primary Dx) Start: 09-11-2021 ambulatory Rolf Ackerman [facility] [place] Comment on above: Population Health Na vigation Outreach ([employer] care gaps) Start: 09-09-2021 Refill Anthony BABCOCK-C Work Phone[facility] Comment on above: Refill Request Start: 09-06-2021 Telephone encounter Jalyn Smith MD [facility] Comment on above: ER FU apt Start: 08-30-2021 End: 08-30-2021 Emergency department patient visit Dr. Jalyn Smith Work Phone: [facility]-Emergency Department Start: 08-15-2021 Telephone encounter Jalyn Smith MD Work Phone: [facility] Comment on above: [facility] OT POC Start: 08-06-2021 Non-patient / Non-visit Dr. Shasta Smith Work Phone: [facility] Start: 07-26-2021 Non-patient / Non-visit Dr. Shasta Smith Work Phone: [facility] Start: 07-25-2021 End: 08-09-2021 Evaluation and management of inpatient Dr. Jalyn Smith Work Phone: [facility]-Transitional Care Unit Start: 07-25-2021 Non-patient / Non-visit Dr. Shasta Smith Work Phone: [facility] Start: 07-25-2021 End: 07-25-2021 Evaluation and management of inpatient [facility] Start: 02-16-2022 Telephone encounter Jalyn Smith MD Work Phone: [facility] [place] Comment on above: Patient Update Start: 10-11-2020 ambulatory SCOOTER JUAREZ [facility] Procedures Date Procedure Procedure Detail Performing Clinician Start: 12-02-2024 Ct angio abd&plvis c ntrst mtrl w/wo cntrst img Yaniv Todd MD Work Phone: Start: 09-04-2024 Computed tomography of abdomen and pelvis with intravenous contrast Dr. Jalyn Smith MD Work Phone: Start: 03-09-2024 P[employer] COVI D-19 VACCINE AGE 12+ YR (COMIRNATY) Jalyn Smith MD Work Phone: Start: 10-14-2023 CTA CHEST/ABD/PEL (NONGATED) W GIANCARLO Todd MD Work Phone: Start: 09-30-2023 Noninvasive ear/puls e oximetry multiple deter Zackery Mayfield MD Work Phone: Start: 09-08-2023 Radiologic exam ches t 2 views Jalyn Smith MD Work Phone: Start: 08-28-2023 CT of abdomen and pe lvis without contrast Start: 01-21-2023 X-ray of lumbar spin e, two or three views Dr. Jalyn Smith Work Phone: Start: 12-26-2022 Plain X-ray of shoulder Dr. Jalyn Smith Work Phone: Start: 12-19-2022 Diagnostic radiograp hy of abdomen Dr. Jalyn Smith Work Phone: Start: 12-11-2022 Measurement of occul t blood in stool specimen using immunoassay Dr. Jalyn Smith Work Phone: Start: 12-10-2022 Plain chest X-ray Start: 12-10-[address] Babak Smith Work Phone: Start: 04-18-2022 Ct angio abd&plvis c ntrst mtrl w/wo cntrst img Herminia Carrera [employer].REFINERY OPERATOR HELPER Work Phone: Start: 04-18-2022 Ct angiography chest w/contrast/noncontrast Herminia Carrera APRN.REFINERY OPERATOR HELPER Work Phone: Start: 03-20-2022 [employer] COVI D-19 BIVALENT BOOSTER VACCINE, AGE 12+ YR Jalyn Smith MD Work Phone: Start: 03-20-2022 INFLUENZA SEASONAL QUADRIVALENT HIGH DOSE AGE 65+ Jalyn Smith MD Work Phone: Start: 09-26-[address] Jalyn Smith Work Phone: Start: 09-26-2021 Investigation of transfusion reaction Dr. Jalyn Smith Work Phone: Start: 09-26-2021 Microbial culture, routine Dr. Jalyn Smith Work Phone: Start: 08-08-2021 End: 08-08-[address] Jalyn Smith Work Phone: Start: 08-05-2021 Radiologic examinati on of knee Dr. Jalyn Smith Work Phone: Start: 07-28-[address] Babak Smith Work Phone: Start: 07-25-2021 SARS-CoV-2 Antigen (Rapid) Dr. Jalyn Smith Work Phone: Start: 07-25-2021 Radiologic examinati on of knee Dr. Jalyn Smith Work Phone: Start: 07-24-2021 Plain chest X-ray Dr. Neal Smith Work Phone: Start: 07-24-[address] Babak Smith Work Phone: Start: 01-04-2019 Mammography MAN Rodríguez PA-C Work Phone: Anaerobic microbial culture Dr. Jalyn Smith Work Phone: Anaerobic microbial culture Investigation of transfusion reaction Dr. Jalyn Smith Work Phone: Investigation of transfusion reaction Microbial culture, routine D r. Jalyn Luis Work Phone: Microbial culture, routine Plan of Treatment Date Care Activity Detail Author Start: 2031 Urine microalbumin profile [facility] Start: 03-09-2027 Diabetes Screening Diabetes Screening [facility] Start: 09-26-2025 Glaucoma screening Dilated Retinal Exam [facility] Start: 09-07-2025 Annual PCP Team Chronic Disease Visit Annual PCP Team Chronic Disease Visit [facility] Start: 09-07-2025 BP Controlled (<130/80) BP Controlled (<130/80) [facility] Start: 09-07-2025 Covid-19 Vaccine () Covid-19 Vaccine () [facility] Comment on above: Postponed from 09/07/2024 (Declined at t his time) Start: 09-07-2025 Diabetic foot examination Diabetic Foot Exam [facility] Start: 09-07-2025 Hepatitis B screening Urine Albumin:Creatinine Ratio [facility] Start: 09-07-2025 Hepatitis B surface antibody level LDL Cholesterol [facility] Start: 08-15-2025 Glaucoma screening Dilated Retinal Exam [facility] Start: 03-25-2025 COLOGUARD (FIT-DNA) COLOGUARD (FIT-DNA) [facility] Start: 03-25-2025 COLORECTAL CANCER SCREENING COLORECTAL CANCER SCREENING [facility] Start: 03-25-2025 Screening for malignant neoplasm of colon [facility] Start: 03-22-2025 End: 03-22-2025 Patient encounter procedure [facility] Comment on above: 6 mo/physical 6 mo/wellness Start: 03-09-2025 Annual PCP Team Chronic Disease Visit Annual PCP Team Chronic Disease Visit [facility] Start: 03-09-2025 Anxiety Screening Anxiety Screening [facility] Start: 03-09-2025 BP Controlled (<130/80) BP Controlled (<130/80) [facility] Start: 03-09-2025 Hemoglobin A1c measurement HbA1C [facility] Start: 03-09-2025 Shingrix Vaccine (1 of 2) Shingrix Vaccine (1 of 2) [facility] Comment on above: Postponed from 08/30/1997 (Declined at t his time) Start: 02-15-2025 End: 02-15-2025 Patient encounter procedure Pulmonary Medicine Comment on above: oxygen renewal Start: 02-15-2025 End: 02-15-2025 ambulatory 02/15/2025 1:00 PM EDT Procedure [facility] [address] [place] [address] Wstr, [facility] Lab [facility] [address] [place] [address] O2 recert [facility] Comment on above: O2 recert Start: 02-06-2025 Influenza vaccination Influenza Vaccine (#1) [facility] Start: 12-15-2024 End: 12-15-2024 Patient encounter procedure 12/15/2024 1:30 PM EDT Office Visit Vascular Surgery [address] [address] Yaniv Todd MD [address] [address] follow up Vascular Surgery Comment on above: follow up Start: 12-12-2024 End: 12-12-2024 Follow-up encounter 12/12/2024 3:00 PM EDT [facility] [address] [phone] Yaniv Todd MD [address] [phone] follow up chronic type B aortic dissection 12/02/24 CT A/P [facility] Comment on above: follow up chronic type B aortic dissecti on 12/02/24 CT A/P Start: 12-02-2024 End: 12-02-2024 Patient encounter procedure Radiology Comment on above: CTA CHEST (NONGATED) W IVCON SEND TO LAB #20 IV ( 11/28 labs ordered + pt has lab appt same day) CTA CHEST (NONGATED) W IVCON Start: 12-02-2024 End: 12-02-2024 ambulatory 12/02/2024 12:45 PM EDT Results Only [facility] [address] [place] [address] [facility] Station Comment on above: CREATINE Start: 12-02-2024 End: 12-02-2024 Patient encounter procedure 12/02/2024 11:20 AM EDT Appointment Cat Scan [address] [place] [address] CTA CHEST (NONGATED) W IVCON Cat Scan Comment on above: CTA CHEST (NONGATED) W IVCON Start: 11-17-2024 End: 02-16-2025 Creatinine and Glomerular filtration rate.predicted panel - Serum, Plasma or Blood CREATININE BLD Lab Routine 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) Expected: 11/17/2024 (Approximate), Expires: 02/16/2025 [facility] Work Phone: Comment on above: Expected: 11/17/2024 (Approximate), Expi res: 02/16/2025 Start: 11-04-2024 BP Controlled (<130/80) BP Controlled (<130/80) [facility] Start: 11-04-2024 End: 12-04-2024 CTA Abdominal vessels and Pelvis vessels W contrast IV CTA ABD/PEL W IVCON Radiology Routine 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) Thoracic aortic aneurysm without rupture, unspecified part (HCC) Dissection of thoracoabdominal aorta (HCC) Expected: 11/04/2024, Expires: 12/04/2024 [facility] Comment on above: Expected: 11/04/2024, Expires: Start: 11-04-2024 End: 12-04-2024 CTA Chest vessels W contrast IV CTA CHEST (NONGATED) W IVCON Radiology Routine Expected: 11/04/2024, Expires: 12/04/2024 [facility] Work Phone: Comment on above: Expected: 11/04/2024, Expires: Start: 10-26-2024 Shingrix Vaccine (2 of 2) Shingrix Vaccine (2 of 2) [facility] Start: 09-29-2024 BP Controlled (<130/80) BP Controlled (<130/80) [facility] Start: 09-07-2024 End: 09-07-2024 Patient encounter procedure 09/07/2024 2:40 PM EDT Office Visit [facility] [address] [place] [address] Jalyn Smith MD [address] [place] [address] 6 month follow up [facility] Comment on above: 6 month follow up Start: 09-07-2024 Annual PCP Team Chronic Disease Visit Annual PCP Team Chronic Disease Visit [facility] Start: 09-07-2024 BP Controlled (<130/80) BP Controlled (<130/80) [facility] Start: 09-07-2024 Covid-19 Vaccine () Covid-19 Vaccine () [facility] Comment on above: Postponed from 02/06/2023 (Declined at t his time) Start: 09-07-2024 Covid-19 Vaccine () Covid-19 Vaccine () [facility] Start: 09-07-2024 Diabetic foot examination Diabetic Foot Exam [facility] Start: 09-07-2024 End: 12-07-2024 Hemoglobin A1c in Blood [facility] Comment on above: Expected: 09/07/2024, Expires: Start: 09-07-2024 Hemoglobin A1c measurement HbA1C [facility] Start: 09-07-2024 Hepatitis B screening Urine Albumin:Creatinine Ratio [facility] Start: 09-07-2024 Hepatitis B surface antibody level LDL Cholesterol [facility] Start: 09-07-2024 Hepatitis C screening Hepatitis C Screening [facility] Comment on above: Postponed from 08/30/1965 (Declined at t his time) Start: 09-07-2024 End: 12-07-2024 LIPID PANEL, NONFASTING [facility] Work Phone: Comment on above: Expected: 09/07/2024, Expires: Start: 09-07-2024 End: 12-07-2024 Magnesium [Mass/volume] in Serum or Plasma [facility] Comment on above: Expected: 09/07/2024, Expires: Start: 09-07-2024 End: 12-07-2024 Microalbumin/Creatinine [Mass Ratio] in Urine [facility] Comment on above: Expected: 09/07/2024, Expires: Start: 09-07-2024 RSV Vaccine (1 - 1-dose 60+ series) RSV Vaccine (1 - 1-dose 60+ series) [facility] Comment on above: Postponed from 2007 (Declined at t his time) Start: 09-07-2024 RSV Vaccine (1 - 1-dose 75+ series) RSV Vaccine (1 - 1-dose 75+ series) [facility] Comment on above: Postponed from 08/30/2022 (Declined at t his time) Start: 09-07-2024 Screening for malignant neoplasm of lung Lung Cancer Screening [facility] Comment on above: Postponed from 03/29/2023 (Postponed To Appropriate Date) Start: 09-04-2024 Bacteria identified in Urine by Culture Urine Culture [facility] Start: 09-04-2024 [facility] Start: 09-04-2024 [facility] Start: 07-01-2024 End: 07-01-2024 Patient encounter procedure 07/01/2024 11:45 AM EST Office Visit Pulmonary Medicine [address] [place] [address] Zackery Mayfield MD [address] [place] [address] 9 mo f/u Pulmonary Medicine Comment on above: 9 mo f/u Start: 06-08-2024 Advance Directive Discussion Advance Directive Discussion [facility] Start: 06-08-2024 Medicare Advantage Annual Wellness Visit Medicare Advantage Annual Wellness Visit [facility] Start: 04-11-2024 End: 07-11-2024 CBC W Auto Differential panel - Blood COMPLETE BLOOD COUNT AND DIFFERENTIAL Lab Routine Anemia, unspecified type History of rectal bleeding Expected: 04/11/2024, Expires: 07/11/2024 [facility] Work Phone: Comment on above: Expected: 04/11/2024, Expires: Start: 04-11-2024 End: 07-11-2024 Magnesium [Mass/volume] in Serum or Plasma MAGNESIUM Lab Routine Hypomagnesemia Expected: 04/11/2024, Expires: 07/11/2024 [facility] Comment on above: Expected: 04/11/2024, Expires: 5 Start: 03-09-2024 End: 03-09-2024 Patient encounter procedure 03/09/2024 3:20 PM EDT Office Visit Family [facility] [address] [place] [address] Jalyn Smith MD [address] [place], [place] [id number] 6 month follow up [facility] [place] Comment on above: 6 month follow up Start: 03-09-2024 End: 06-08-2024 Basic metabolic 2000 panel - Serum or Plasma [facility] Comment on above: Expected: 03/09/2024, Expires: 5 Start: 03-09-2024 End: 06-08-2024 CBC W Auto Differential panel - Blood [facility] Comment on above: Expected: 03/09/2024, Expires: 5 Start: 03-09-2024 End: 06-08-2024 Hemoglobin A1c in Blood [facility] Work Phone: Comment on above: Expected: 03/09/2024, Expires: Start: 03-09-2024 Hemoglobin A1c measurement HbA1C [facility] Start: 03-09-2024 End: 06-08-2024 Iron and Iron binding capacity panel - Serum or Plasma [facility] Comment on above: Expected: 03/09/2024, Expires: 5 Start: 03-09-2024 End: 06-08-2024 Magnesium [Mass/volume] in Serum or Plasma [facility] Comment on above: Expected: 03/09/2024, Expires: 5 Start: 02-07-2024 Covid-19 Vaccine () Covid-19 Vaccine () [facility] Start: 02-07-2024 Covid-19 Vaccine ( season) Covid-19 Vaccine () [facility] Start: 02-07-2024 Influenza vaccination [facility] Start: 01-20-2024 BP CONTROLLED (<130/80) BP CONTROLLED (<130/80) [facility] Start: 01-13-2024 ANNUAL PCP TEAM CHRONIC DISEASE VISIT ANNUAL PCP TEAM CHRONIC DISEASE VISIT [facility] Start: 01-13-2024 BP CONTROLLED (<130/80) BP CONTROLLED (<130/80) [facility] Start: 01-06-2024 End: 01-06-2024 Patient encounter procedure 01/06/2024 11:30 AM EDT Office Visit Pulmonary Medicine [address] [place], [place] [id number] Juhi Nolasco PA-C [address], [place] [id number] 3 mo fu Pulmonary Medicine Comment on above: 3 mo fu Start: 12-11-2023 ANNUAL PCP TEAM CHRONIC DISEASE VISIT ANNUAL PCP TEAM CHRONIC DISEASE VISIT [facility] Start: 12-11-2023 BP CONTROLLED (<130/80) BP CONTROLLED (<130/80) [facility] Start: 11-05-2023 End: 11-05-2023 Patient encounter procedure 11/05/2023 10:30 AM EDT Office Visit Vascular Surgery [address] [address] Yaniv Todd MD [address] 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] Start: 10-02-2023 ANNUAL PCP TEAM CHRONIC DISEASE VISIT ANNUAL PCP TEAM CHRONIC DISEASE VISIT [facility] Start: 10-02-2023 BP CONTROLLED (<130/80) BP CONTROLLED (<130/80) [facility] Start: 10-02-2023 SHINGRIX VACCINE (1 of 2) SHINGRIX VACCINE (1 of 2) [facility] Comment on above: Postponed from 08/30/1997 (Declined at t his time) Start: 09-24-2023 End: 12-24-2023 Urinalysis complete panel - Urine URINALYSIS, WITH MICROSCOPIC Lab Routine Microscopic hematuria Expected: 09/24/2023, Expires: 12/24/2023 [facility] Work Phone: Comment on above: Expected: 09/24/2023, Expires: Start: 09-09-2023 End: 12-09-2023 Basic metabolic 2000 panel - Serum or Plasma BASIC METABOLIC PNL Lab Routine Renal insufficiency Anemia, unspecified type Expected: 09/09/2023, Expires: 12/09/2023 [facility] Work Phone: Comment on above: Expected: 09/09/2023, Expires: Start: 09-09-2023 End: 12-09-2023 CBC W Auto Differential panel - Blood CBC + DIFF Lab Routine Renal insufficiency Anemia, unspecified type Expected: 09/09/2023, Expires: 12/09/2023 [facility] Work Phone: Comment on above: Expected: 09/09/2023, Expires: Start: 09-09-2023 End: 12-09-2023 Ferritin [Mass/volume] in Serum or Plasma FERRITIN BLD Lab Routine Renal insufficiency Anemia, unspecified type Expected: 09/09/2023, Expires: 12/09/2023 [facility] Work Phone: Comment on above: Expected: 09/09/2023, Expires: Start: 09-09-2023 End: 12-09-2023 Iron and Iron binding capacity panel - Serum or Plasma IRON + TIBC Lab Routine Renal insufficiency Anemia, unspecified type Expected: 09/09/2023, Expires: 12/09/2023 [facility] Work Phone: Comment on above: Expected: 09/09/2023, Expires: Start: 09-09-2023 End: 12-09-2023 Urinalysis complete panel - Urine URINALYSIS, WITH MICROSCOPIC Lab Routine Renal insufficiency Anemia, unspecified type Expected: 09/09/2023, Expires: 12/09/2023 [facility] Work Phone: Comment on above: Expected: 09/09/2023, Expires: Start: 08-28-2023 [facility] Start: 07-17-2023 ANNUAL PCP TEAM CHRONIC DISEASE VISIT ANNUAL PCP TEAM CHRONIC DISEASE VISIT [facility] Start: 06-08-2023 Advance Directive Discussion Advance Directive Discussion [facility] Start: 04-18-2023 Glaucoma screening Dilated Retinal Exam [facility] Start: 04-18-2023 Hepatitis C antibody, confirmatory test DILATED RETINAL EXAM [facility] Start: 04-02-2023 Hemoglobin A1c measurement HbA1C [facility] Start: 04-02-2023 Hemoglobin A1c/Hemoglobin.total in Blood HBA1C [facility] Start: 03-29-2023 Influenza vaccination LUNG CANCER SCREENING [facility] Start: 03-29-2023 Screening for malignant neoplasm of lung Lung Cancer Screening [facility] Start: 03-20-2023 3 comp foot exam completed DIABETIC FOOT EXAM [facility] Start: 03-20-2023 ANNUAL PCP TEAM CHRONIC DISEASE VISIT ANNUAL PCP TEAM CHRONIC DISEASE VISIT [facility] Start: 03-20-2023 BP CONTROLLED (<130/80) BP CONTROLLED (<130/80) [facility] in Start: 03-20-2023 Diabetic foot examination Diabetic Foot Exam [facility] Start: 03-20-2023 Hepatitis B screening URINE ALBUMIN:CREATININE RATIO [facility] Start: 03-20-2023 Hepatitis B surface antibody level LDL CHOLESTEROL [facility] Start: 02-18-2023 Procedure [facility] Start: 02-06-2023 Covid-19 Vaccine () Covid-19 Vaccine () [facility] Start: 02-06-2023 Influenza vaccination [facility] Start: 01-14-2023 End: 03-16-2023 CBC W Auto Differential panel - Blood CBC + DIFF Lab Routine Anemia, unspecified type Expected: 01/14/2023, Expires: 03/16/2023 [facility] Work Phone: Comment on above: Expected: 01/14/2023, Expires: 3 Start: 01-12-2023 End: 03-14-2023 Bacteria identified in Urine by Culture [facility] Work Phone: Comment on above: Expected: 01/12/2023, Expires: Start: 01-12-2023 End: 03-14-2023 Basic metabolic 2000 panel - Serum or Plasma [facility] Work Phone: Comment on above: Expected: 01/12/2023, Expires: Start: 01-12-2023 End: 03-14-2023 Urinalysis complete panel - Urine [facility] Work Phone: Comment on above: Expected: 01/12/2023, Expires: Start: 01-02-2023 Patient discharge [facility] Start: 01-01-2023 Development of care plan [facility] Start: 12-30-2022 Referral to service [facility] Start: 12-29-2022 [facility] Start: 12-22-2022 Palliative care [facility] Start: 12-21-2022 Inhalation therapy procedure [facility] Start: 12-16-2022 Development of care plan [facility] Start: 12-16-2022 Developing a treatment plan [facility] Start: 12-15-2022 Wound care [facility] Start: 12-15-2022 Oxygen therapy [facility] Start: 12-15-2022 Admission procedure [facility] Start: 12-15-2022 Measuring intake and output [facility] Start: 12-15-2022 Patient referral to dietitian [facility] Start: 12-15-2022 Referral to occupational therapist [facility] Start: 12-15-2022 Referral to service [facility] Start: 12-15-2022 Vital signs measurements [facility] Start: 12-15-2022 [facility] Start: 12-15-2022 Patient discharge [facility] Start: 12-14-2022 Incentive spirometry [facility] Start: 12-14-2022 [facility] Start: 12-12-2022 Following clinical pathway protocol [facility] Start: 12-11-2022 Admission procedure [facility] Start: 12-11-2022 Consultation for treatment [facility] Start: 12-11-2022 Application of intermittent pneumatic compression device [facility] Start: 12-10-2022 Assessment of risk of venous thromboembolism [facility] Start: 12-10-2022 Insertion of catheter into peripheral vein [facility] Start: 12-10-2022 Oxygen therapy [facility] Start: 12-10-2022 Providing care according to standard [facility] Start: 12-10-2022 Provision of activity privileges [facility] Start: 12-10-2022 Referral to occupational therapist [facility] Start: 12-10-2022 Referral to service [facility] Start: 12-10-2022 Wound care [facility] Start: 12-10-2022 [facility] Start: 12-10-2022 Verification routine [facility] Start: 12-10-2022 [facility] Start: 12-10-2022 Bacteria identified in Urine by Culture Urine Culture [facility] Start: 10-01-2022 End: 12-01-2022 Hemoglobin A1c in Blood [facility] Work Phone: Comment on above: Expected: 10/01/2022, Expires: 3 Start: 09-18-2022 ANNUAL PCP TEAM CHRONIC DISEASE VISIT ANNUAL PCP TEAM CHRONIC DISEASE VISIT [facility] Start: 09-18-2022 BP CONTROLLED (<130/80) BP CONTROLLED (<130/80) [facility] in Start: 09-18-2022 Hemoglobin A1c/Hemoglobin.total in Blood HBA1C [facility] Start: 09-13-2022 ANNUAL PCP TEAM CHRONIC DISEASE VISIT ANNUAL PCP TEAM CHRONIC DISEASE VISIT [facility] Start: 09-10-2022 ANNUAL PCP TEAM CHRONIC DISEASE VISIT ANNUAL PCP TEAM CHRONIC DISEASE VISIT [facility] Start: 08-16-2022 ANNUAL PCP TEAM CHRONIC DISEASE VISIT ANNUAL PCP TEAM CHRONIC DISEASE VISIT [facility] Start: 07-21-2022 COVID-19 VACCINE (5 - Moderna series) COVID-19 VACCINE (5 - Moderna series) [facility] Start: 06-08-2022 ADVANCE DIRECTIVE DISCUSSION ADVANCE DIRECTIVE DISCUSSION [facility] Start: 03-28-2022 Hemoglobin A1c/Hemoglobin.total in Blood HBA1C [facility] Start: 03-26-2022 COLORECTAL CANCER SCREENING COLORECTAL CANCER SCREENING [facility] Start: 03-20-2022 End: 05-20-2022 ALBUMIN/CREAT RATIO RND UR [facility] Work Phone: Comment on above: Expected: 03/20/2022, Expires: 2 Start: 03-20-2022 End: 03-20-2023 CBC W Auto Differential panel - Blood [facility] Work Phone: Comment on above: Expected: 03/20/2022, Expires: 3 Start: 03-20-2022 End: 03-20-2023 Comprehensive metabolic 2000 panel - Serum or Plasma [facility] Work Phone: Comment on above: Expected: 03/20/2022, Expires: 3 Start: 03-20-2022 End: 05-20-2022 CREATININE BLD CREATININE BLD Lab Routine 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, abdominal (HCC) Expected: 03/20/2022, Expires: 05/20/2022 [facility] Work Phone: Comment on above: Expected: 03/20/2022, Expires: 2 Start: 03-20-2022 End: 05-20-2022 Hemoglobin A1c in Blood [facility] Work Phone: Comment on above: Expected: 03/20/2022, Expires: 2 Start: 03-20-2022 End: 03-20-2023 Lipid 1996 panel - Serum or Plasma [facility] Work Phone: Comment on above: Expected: 03/20/2022, Expires: 3 Start: 02-06-2022 Influenza vaccination [facility] Start: 11-27-2021 COVID-19 VACCINE (4 - Booster for Moderna series) COVID-19 VACCINE (4 - Booster for Moderna series) [facility] Start: 09-24-2021 COVID-19 VACCINE (4 - Booster for Moderna series) COVID-19 VACCINE (4 - Booster for Moderna series) [facility] Start: 09-11-2021 End: 11-11-2021 ALBUMIN/CREAT RATIO RND UR ALBUMIN/CREAT RATIO RND UR Lab Routine Type 2 diabetes mellitus without complication, without long-term current use of insulin (HCC) Expected: 09/11/2021, Expires: 11/11/2021 [facility] Work Phone: Comment on above: Expected: 09/11/2021, Expires: 2 Start: 09-11-2021 End: 11-11-2021 LIPID PANEL BASIC LIPID PANEL BASIC Lab Routine Type 2 diabetes mellitus without complication, without long-term current use of insulin (HCC) Expected: 09/11/2021, Expires: 11/11/2021 [facility] Work Phone: Comment on above: Expected: 09/11/2021, Expires: 2 Start: 08-30-2021 Smpl repair scalp/neck/ax/genit/trun k 2.6-7.5cm RPR S/N/AX/GEN/TRNK2.6-7.5CM [facility] Work Phone: Start: 08-20-2021 3 comp foot exam completed DIABETIC FOOT EXAM [facility] Start: 08-08-2021 Hepatitis B screening URINE ALBUMIN:CREATININE RATIO [facility] Start: 07-31-2021 Hepatitis B surface antibody level LDL CHOLESTEROL [facility] Start: 06-08-2021 ADVANCE DIRECTIVE DISCUSSION ADVANCE DIRECTIVE DISCUSSION [facility] Start: 01-28-2021 Hemoglobin A1c/Hemoglobin.total in Blood HBA1C [facility] Start: 06-29-2020 COLORECTAL CANCER SCREENING COLORECTAL CANCER SCREENING [facility] Start: 06-29-2020 FECAL OCCULT BLOOD FECAL OCCULT BLOOD [facility] Start: 06-29-2020 Screening for malignant neoplasm of colon Fecal Occult Blood [facility] Start: 01-05-2020 Mammography MAMMOGRAM [facility] Start: 2007 Hepatitis B Vaccine (1 of 3 - Risk 3-dose series) Hepatitis B Vaccine (1 of 3 - Risk 3-dose series) [facility] Start: 2007 RSV Vaccine (1 - 1-dose 60+ series) RSV Vaccine (1 - 1-dose 60+ series) [facility] Start: 08-30-1997 Influenza vaccination LUNG CANCER SCREENING [facility] Start: 08-30-1997 SHINGRIX VACCINE (1 of 2) SHINGRIX VACCINE (1 of 2) [facility] Start: 08-30-1992 COLOGUARD (FIT-DNA) COLOGUARD (FIT-DNA) [facility] Start: 08-30-1992 Colonoscopy COLONOSCOPY [facility] Start: 08-30-[address] COLONOGRAPHY [facility] Start: 08-30-1992 Screening for malignant neoplasm of colon [facility] Start: 08-30-1992 SIGMOIDOSCOPY SIGMOIDOSCOPY [facility] Start: 08-30-1977 Zoledronic acid therapy ALPHA-1 ANTITRYPSIN DEFICIENCY SCREENING [facility] Start: 08-30-1965 Anxiety Screening Anxiety Screening [facility] Start: 08-30-1965 BP CONTROLLED (<130/80) BP CONTROLLED (<130/80) [facility] Start: 08-30-1965 HEPATITIS C SCREENING HEPATITIS C SCREENING [facility] Start: 08-30-1965 Hepatitis C screening Hepatitis C Screening [facility] Start: 08-30-1957 Hepatitis C antibody, confirmatory test DILATED RETINAL EXAM [facility] Clostridioides diffi cile toxin genes [Presence] in Stool by MONCHO with probe detection C. DIFFICILE PCR Lab Routine Diarrhea, unspecified type Ordered: 01/12/2023 [facility] Work Phone: Comment on above: Ordered: 01/12/2023 COLOGUARD COLOGUARD Lab Ro utine Screen for colon cancer Ordered: 03/20/2022 [facility] Work Phone: Comment on above: Ordered: 03/20/2022 End: 04-19-2023 Ct angio abd&plvis cntrst mtrl w/wo cntrst img CTA ABD/PEL W IVCON Radiology Routine 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, abdominal (HCC) 1 Occurrences starting 03/20/2022 until 04/19/2023 [facility] Work Phone: Comment on above: 1 Occurrences starting 03/20/2022 until 04/19/2023 End: 04-19-2023 Ct angiography chest w/contrast/noncontrast CTA CHEST (NONGATED) W IVCON Radiology Routine 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, abdominal (HCC) 1 Occurrences starting 03/20/2022 until 04/19/2023 [facility] Work Phone: Comment on above: 1 Occurrences starting 03/20/2022 until 04/19/2023 End: 10-20-2024 CTA Abdominal vessels and Pelvis vessels W contrast IV CTA ABD/PEL W IVCON Radiology Routine Abdominal aortic aneurysm (AAA) without rupture, unspecified part (HCC) Dissection of thoracoabdominal aorta (HCC) 1 Occurrences starting 09/21/2023 until 10/20/2024 [facility] Work Phone: Comment on above: 1 Occurrences starting 09/21/2023 until 10/20/2024 End: 10-20-2024 CTA Chest vessels WO and W contrast IV CTA CHEST (NONGATED) WO/W IVCON Radiology Routine Thoracic aortic aneurysm without rupture, unspecified part (HCC) Dissection of descending aorta (HCC) 1 Occurrences starting 09/21/2023 until 10/20/2024 [facility] Work Phone: Comment on above: 1 Occurrences starting 09/21/2023 until 10/20/2024 ENTERIC BACTERIAL PA IVAN BY PCR ENTERIC BACTERIAL PANEL BY PCR Lab Routine Diarrhea, unspecified type Ordered: 01/12/2023 [facility] Work Phone: Comment on above: Ordered: 01/12/2023 FECAL LACTOFERRIN/LEUKOCYTES FECAL LACTOFERRIN/LEUKOCYTES Lab Routine Diarrhea, unspecified type Ordered: 01/12/2023 [facility] Work Phone: Comment on above: Ordered: 01/12/2023 Giardia lamblia+Cryptosporidium sp Ag [Presence] in Stool by Immunoassay CRYPTOSPORIDIUM AND GIARDIA ANTIGENS BY EIA Microbiology Routine Diarrhea, unspecified type Ordered: 01/12/2023 [facility] Work Phone: Comment on above: Ordered: 01/12/2023 End: 09-05-2023 KALI SCREENING KALI SCREENING Radiology Routine Encounter for screening mammogram for breast cancer 1 Occurrences starting 08/06/2022 until 09/05/2023 [facility] Work Phone: Comment on above: 1 Occurrences starting 08/06/2022 until 09/05/2023 Microscopic urinalysis [facility] Organism count, microscopic method [facility] End: 10-09-2024 OXIMETRY WITH AMBULATION OXIMETRY WITH AMBULATION PFT Routine Hypoxemia 1 Occurrences starting 09/10/2023 until 10/09/2024 [facility] Work Phone: Comment on above: 1 Occurrences starting 09/10/2023 until 10/09/2024 End: 02-15-2026 OXIMETRY WITH AMBULATION OXIMETRY WITH AMBULATION PFT Routine Acute and chronic respiratory failure with hypoxia (HCC) 1 Occurrences starting 01/16/2025 until 02/15/2026 [facility] Work Phone: Comment on above: 1 Occurrences starting 01/16/2025 until 02/15/2026 Patient Education [facility] Work Phone: Patient referral [facility] Work Phone: Urine culture [facility] Urine microscopy: epithelial cells [facility] Urine microscopy: re d cells [facility] White blood cell count [facility] End: 10-07-2024 XR Chest PA and Lateral XR CHEST 2V FRONTAL/LAT Radiology Routine Bacterial pneumonia 1 Occurrences starting 09/08/2023 until 10/07/2024 [facility] Work Phone: Comment on above: 1 Occurrences starting 09/08/2023 until 10/07/2024 XR Chest PA and Lateral XR CHEST 2V FRONTAL/LAT Radiology Routine Bacterial pneumonia 09/08/2023 3:13 PM EDT [facility] Work Phone: End: 10-08-2024 XR Chest PA and Lateral XR CHEST 2V FRONTAL/LAT Radiology Routine Infiltrate noted on imaging study 1 Occurrences starting 09/09/2023 until 10/08/2024 [facility] Work Phone: Comment on above: 1 Occurrences starting 09/09/2023 until 10/08/2024 [facility] Immunizations Immunization Date Immunization Notes Care Provider [facility] 10-24-2024 zoster vaccine recombinant Jalyn Smith MD Work Phone: [facility] 09-07-2024 pneumococcal conjuga te (PCV20) vaccine, 20 valent (PREVNAR 20) Jalyn Smith MD Work Phone: [facility] 2024 respiratory syncytia l virus (RSV) vaccine, bivalent (ABRYSVO) Jalyn Smith MD Work Phone: [facility] 2024 zoster vaccine recombinant Jalyn Smith MD Work Phone: [facility] 03-09-2024 COVID-19 vaccine, ag e 12+ yr ([employer] COMIRNATY) Jayln Smith MD Work Phone: [facility] 03-09-2024 influenza, high dose seasonal, preservative-free Jalyn Smith MD Work Phone: [facility] 03-09-2024 influenza virus vacc ine, unspecified formulation Yaniv Todd MD Work Phone: [facility] 03-20-2022 COVID-19 booster vaccine, age 12+ yr, bivalent ([employer]ION[employer]) Jalyn Smith MD Work Phone: [facility] 03-20-2022 influenza, high-dose , quadrivalent vaccine (FLUZONE HIGH DOSE QUADRIVALENT) Jalyn Smith MD Work Phone: [facility] 03-20-2022 influenza virus vacc ine, unspecified formulation Zackery Mayfield MD Work Phone: [facility] 08-30-2021 tetanus toxoid, redu kaur diphtheria toxoid, and acellular pertussis vaccine, adsorbed NA Rodríguez PA-C Work Phone: [facility] 07-30-2021 Covid (Moderna) Dr. Jalyn Smith Work Phone: [facility] 08-02-2020 COVID-19 vaccine, fu ll dose (MODERNA) NA Rodríguez PA-C Work Phone: [facility] 07-05-2020 COVID-19 vaccine, fu ll dose (MODERNA) NA Rodríguez PA-C Work Phone: [facility] Work Phone: 06-25-2020 Covid (Moderna) Dr. Jalyn Smith Work Phone: [facility] 06-29-2019 influenza, high dose seasonal, preservative-free NA Rodríguez PA-C Work Phone: [facility] 06-19-2016 influenza, high dose seasonal, preservative-free NA Rodríguez PA-C Work Phone: [facility] 06-19-2016 pneumococcal conjuga te vaccine, 13 valent NA Rodríguez PA-C Work Phone: [facility] 03-07-2015 influenza, high dose seasonal, preservative-free NA Rodríguez PA-C Work Phone: [facility] 03-09-2014 influenza, high dose seasonal, preservative-free NA Rodríguez PA-C Work Phone: [facility] 03-09-2014 pneumococcal polysaccharide vaccine, 23 valent NA Rodríguez PA-C Work Phone: [facility] 02-25-2013 influenza virus vacc ine, unspecified formulation NA Rodríguez PA-C Work Phone: [facility] Payers Date Payer Category Payer Self-pay [id number] 2021 Medicare HUMANA MEDICARE HU[employer]NA MEDICARE PPO [id number] 2021-Present [phone] [place], [place] [id number] PP [id number] 2018 Medicare [id number] 2018 Medicare (Managed Care) [employer]NA BEATA [id number] 2018 Medicare [id number] Unknown [id number] Unknown [id number] Social History Date Type Detail Facility Start: 04-28-2014 End: 03-20-2022 Tobacco smoking status NHIS Ex-smoker [facility] Start: 08-30-1966 End: 01-29-2012 History of tobacco use Current smoker [facility] Start: 08-30-1966 End: 01-29-2012 History of tobacco use Cigarette Smoker [facility] Start: 08-30-2021 End: 01-06-2024 Alcohol intake Current non-drinker of alcohol (finding) [facility] Start: 08-17-2020 History SDOH Alcohol Frequency 2 [facility] Start: 08-17-2020 History SDOH Alcohol Std Drinks 1 [facility] Start: 08-17-2020 History SDOH Social Connections Phone 3 [facility] Start: 08-17-2020 History SDOH Social Connections Living 4 [facility] Start: 08-17-2020 History SDOH Financial 5 [facility] Start: 08-17-2020 Education 12 [facility] Start: 04-28-2014 End: 03-20-2022 Tobacco Comment Father smoked in childhood home. Spouse smoked briefly after marriage. [facility] Start: 1945 Sex Assigned At Female C [facility] Start: 08-26-2021 End: 03-20-2022 Exposure to SARS-CoV-2 (event) Not sure [facility] Work Phone: Start: 09-26-2021 End: 08-28-2023 Tobacco smoking status MAIS Unknown if ever smoked [facility] Start: 04-28-2014 End: 12-12-2024 Cigarettes smoked current (pack per day) - Reported 0.5 [facility] Start: 04-28-2014 End: 03-20-2022 Tobacco use and exposure Smokeless tobacco non-user [facility] Work Phone: Start: 08-17-2020 End: 12-12-2024 Social connection and isolation panel [facility] Do you belong to any clubs or organizations such as methodist groups, unions, fraternal or athletic groups, or school groups? No [facility] Are you now , , , , never or living with a partner? [facility] How often to you hav e a drink containing alcohol? Monthly or less [facility] How many standard dr inks containing alcohol do you have on a typical day? 1 or 2 [facility] How often do you hav e 6 or more drinks on 1 occasion? Less than monthly [facility] Start: 05-09-2012 How hard is it for y ou to pay for the very basics like food, housing, medical care, and heating Not hard at all [facility] Do you feel stress - tense, restless, nervous, or anxious, or unable to sleep at night because your mind is troubled all the time - these days [OSQ] Only a little [facility] (I/We) worried wheth er (my/our) food would run out before (I/we) got money to buy more. Never true [facility] Start: 07-16-2019 Gender identity Identifies as female gender (finding) [facility] How often do you hav e 6 or more drinks on 1 occasion? Never [facility] Do you feel stress - tense, restless, nervous, or anxious, or unable to sleep at night because your mind is troubled all the time - these days [OSQ] To some extent [facility] Start: 08-15-2024 End: 09-04-2024 Sex Female (finding) [facility] Medical Equipment Procedure Code Equipment Code Equipment Origin al Text Equipment Identifier Dates Test blood sugar(s) 2 times daily. Dx: Type 2 DM - Controlled E11.9 Insulin: No [id number], [id number] Start: 08-16-2021 Comment on above: Test blood sugar(s) 2 times daily. Dx: Type 2 DM - Controlled E11.9 Insulin: No Goals Date Patient Goal Desired Activity /State Personal health goal Comment on above: Formatting of this n ote might be different from the original. Patient has the following general goals: Two PCP visits annually Patient Stated goal: to get around better with less shortness of breath Patient will meet these goals by 10/16/23 (describe interventions done by PCC) Formatting of this n ote might be different from the original. Patient has the following Chronic Obstructive Pulmonary Disease goals: Pulmonology visit annually Education provided and reviewed with patient - sent on 10/15/22 COPD SAMMY Education - COPD About Patient will meet these goals by 10/15/22 instructed on scheduled and PRN inhaled medications (describe interventions done by PCC) Formatting of this n ote might be different from the original. Patient has the following Chronic Obstructive Pulmonary Disease goals: Pulmonology visit annually Education provided and reviewed with patient - sent on 10/15/22 COPD Action Plan/Zones, Understanding COPD, How to use MDI, and COPD SAMMY Education - COPD About Patient will meet these goals by 10/15/22 instructed on scheduled and PRN inhaled medications (describe interventions done by PCC) Formatting of this n ote might be different from the original. Patient has the following Chronic Obstructive Pulmonary Disease goals: Pulmonology visit annually Education provided and reviewed with patient - sent on 10/15/22 COPD Action Plan/Zones, Understanding COPD, How to use MDI, and COPD SAMMY Education - COPD About Patient will meet these goals by 10/15/22 instructed on scheduled and PRN inhaled medications (describe interventions done by PCC) 10/19/23- reviewed zones/management with pt Personal health goal Comment on above: Formatting of this n ote might be different from the original. Patient has the following High Blood Pressure/Hypertension Goals: Two PCP Visits annually, Nurse / pharmacist / MO visit within 4 weeks after PCP visit with uncontrolled BP (>140/90), and BMP annually HTN Education given and reviewed with patient --sent on 05/06/23 Medication compliance education, Advise / educate patient to ask for repeat BP check at any appointment if first BP is >140/90, Checking your Blood Pressure at Home, High Blood Pressure: Talking to Your Health Care Provider, High Blood Pressure - When to Seek Emergency Care, and Your Sodium-Controlled Diet Patient will meet these goals by 05/06/24 (describe interventions done by PCC) Personal health goal Comment on above: Formatting of this n ote might be different from the original. Patient has the following general goals: Two PCP visits annually Patient Stated goal: Live another year. Maintain health and independence Patient will meet these goals by 09/20/24 (describe interventions done by PCC) Personal health goal Comment on above: Formatting of this n ote might be different from the original. Patient has the following general goals: Two PCP visits annually Patient Stated goal: to get around better with less shortness of breath Patient will meet these goals by 10/16/23 (describe interventions done by PCC) Comment on above: Formatting of this n ote might be different from the original. Patient has the following Chronic Obstructive Pulmonary Disease goals: Pulmonology visit annually Education provided and reviewed with patient - sent on 10/15/22 COPD SAMMY Education - COPD About Patient will meet these goals by 10/15/22 instructed on scheduled and PRN inhaled medications (describe interventions done by PCC) Functional Status Date Assessment Result Facility 2024 Total score [AUDIT-C] 0 09/01/19 25 3:53 PM EDT UserYumiko [facility] 2024 Within the last year , have you been humiliated or emotionally abused in other ways by your partner or ex-partner? No 2024 3:53 PM EDT User, Retat No [facility] 2024 Within the last year , have you been afraid of your partner or ex-partner? No 2024 3:53 PM EDT User, Retat No [facility] 2024 Within the last year , have you been raped or forced to have any kind of sexual activity by your partner or ex-partner? No 2024 3:53 PM EDT User, Retat No [facility] 2024 Within the last year , have you been kicked, hit, slapped, or otherwise physically hurt by your partner or ex-partner? No 2024 3:53 PM EDT User, Retat No [facility] 2024 How often to you hav e a drink containing alcohol? Never 2024 3:53 PM EDT User, Mychart Never [facility] 2024 Functional status Patient does n ot drink 2024 3:53 PM EDT User, Retat Patient does not drink [facility] 2024 How often do you hav e 6 or more drinks on 1 occasion? Never 2024 3:53 PM EDT User, Rosamariahart Never [facility] 01-02-2023 Functional status Chair [facility] Work Phone: 12-15-2022 Functional status Ambulates [facility] Work Phone: 08-09-2021 Functional status Activity Abili ty With Assist of 1 [facility] Work Phone: 08-08-2021 Functional status Ambulates [facility] Work Phone: 07-25-2021 Functional status Bedrest [facility] Work Phone: 12-30-2018 Are you deaf, or do you have serious difficulty hearing No 12/30/2018 5:00 PM EDT Gonzalez Chauhan (Rn), RN No [facility] 12-30-2018 Are you blind, or do you have serious difficulty seeing, even when wearing glasses No 12/30/2018 5:00 PM EDT Gonzalez Chauhan (Rn), RN No [facility] 12-30-2018 Do you have serious difficulty walking or climbing stairs Yes 12/30/2018 5:00 PM EDT Gonzalez Chauhan (Rn), RN Yes [facility] 12-30-2018 Do you have difficul ty dressing or bathing Yes 12/30/2018 5:00 PM EDT Gonzalez Chauhan (Rn), RN Yes [facility] 12-30-2018 Because of a physica l, mental, or emotional condition, do you have difficulty doing errands alone such as visiting a physician's office or shopping Yes 12/30/2018 5:00 PM EDT Gonzalez Chauhan (Rn), RN Yes [facility] Mental Status Date Assessment Result Facility 01-02-2023 Cognitive function Voice/Name [facility] Work Phone: 01-01-2023 Cognitive function Appropriate;Cooperativ e [facility] Work Phone: 12-15-2022 Cognitive function Voice/Name [facility] Work Phone: 12-10-2022 Cognitive function Level Of Cons ciousness Awake;Alert;Appropriate [facility] Work Phone: 08-09-2021 Cognitive function Voice/Name [facility] Work Phone: 07-25-2021 Cognitive function Voice/Name [facility] Work Phone: 12-30-2018 Because of a physica l, mental, or emotional condition, do you have serious difficulty concentrating, remembering, or making decisions Yes 12/30/2018 5:00 PM EDT Gonzalez Chauhan (Rn), RN Yes [facility] Clinical Notes 02-09-2019 to 03-22-2025 Telephone Encounter - Casandra Rasheed MA - 01/30/2025 3:17 PM EDTTelephone Encounter - Casandra Rasheed MA - 01/30/2025 3:17 PM EDTBaranestuardo Juhi Greene - 01/20/2025 9:52 AM EDT Note Date & Type Note Facility 03-22-2025 Note HNO ID: [id number] Author: KAREN VARGAS RPFT Service: ? Author Type: Respiratory Therapist Type: Procedures Filed: 03/22/2025 14:59 Note Text: RESPIRATORY THERAPY OXIMETRY WITH AMBULATION Oximetry with Ambulation Test for This Encounter O2 Device O2 Adapter NC O2 Flow SpO2% HR Activity Ft Walked (ft) Time (min) Avg Speed (MPH) R/A 95 66 Resting R/A 86 86 Walking 80 1.8 0.51 NC 2 99 65 Resting NC 2 98 77 Walking 180 3 0.68 General Information Pulse Oximetry Site Total Time Spent Walking Assistance/O2 Supply Carrier Forehead 30 Wheeled Walker Comment: NAME: JOSE Alonzo PATIENT NAME: Kandi Correia DATE: March 22, 2025 TIME: 2:59 PM OXIMETRY [facility] 03-22-2025 Note HNO ID: [id number] Author: JALYN SMITH MD Service: ? Author Type: Physician Type: Progress Notes Filed: 03/22/2025 14:14 Note Text: Kandi Correia is a 79 year old female here for a Medicare wellness visit. Medicare Health Risk Assessment General Health Good Exercise: Minutes/Day 10 min Exercise: Days/Week 1 day Alcohol: Daily Use Monthly or less Alcohol: Drinks/Day Patient does not drink Alcohol: 6 or more drinks Never Feel off balance Yes Concerns: Teeth/Dentures No Concerns: Sexual function No Troubled by feelings Stressed Frequency: Eating healthy diet Several days ADLs requiring help Grocery shopping; Housework Safety precautions in home/vehicle Yes Smoke, vape, chews tobacco No Difficulty hearing Yes Difficulty seeing Yes-two cataracts Current Providers Specialists: I have reviewed specialist-related care of the patient in the medical record. Current care team: Patient Care Team: Jalyn Smith MD as PCP - General (Family Medicine) Marjan Reid APRN.REFINERY OPERATOR HELPER as Television Operator (Family Medicine) Casandra Kinsey APRN.CNP as Television Operator (Family Medicine) Dr Tompkins, optometry and Dr. Harman opth Dr Mayfield, pulmonary. Dr Todd, vascular surgery. Dr Paul, pain managment Medical/Family history review Reviewed and updated problem list, medical/surgical/family/social history, medications, and allergies. Opioid use review Prescribed: No opioid use on file in the last 90 days Patient-reported: TRAMADOL 50 MG TABLET BUPRENORPHINE 7.5 MCG/HOUR WEEKLY TRANSDERMAL PATCH Does patient have risk factors for opioid abuse? No Pain overview Current pain concerns and treatment plan reviewed. Patient stable on current treatment plan and under the care of a specialist. Depression screening PHQ-2 Score: 0 (2024 3:49 PM) PHQ-9 Score: 3 (2024 3:49 PM) Based on score and interview, patient is already diagnosed with depression. Recommendation: continuing current treatment plan Anxiety screening JONH-2 Score: 0 JONH-7 Score: 3 Cognitive screening Mini Cog Score: 5 Cognitive screening reviewed and No further action needed (score 3-5). Functional Observation Was the patient's Timed Up AND Go test unsteady or >= 12 seconds? No Advance Directives Patient did not wish or was not able to name a surrogate decision maker or provide an advance care plan Measurements BP 104/62 Pulse 64 Wt 73.9 kg (163 lb) SpO2 94% BMI 27.98 kg/m? Vision Screening: Follows with optometry/ophthalmology ADDITIONAL INFO: Kandi is a 79-year-old female with a history of COPD, anxiety, depression, and DM, presenting for an annual wellness visit. Annual Wellness Exam: - Recent cataract surgeries on 01/16 and 01/30, followed by new glasses from Dr. Tompkins. - Denies issues with dentures or sexual functioning. - No recent falls; uses a walker at home and a wheelchair when out. - Has handrails and safety equipment at home. - Denies smoking, vaping, or chewing tobacco. - Denies hearing issues; has hearing aids but cannot find the charging cord. - Denies bowel or urinary issues. - Has a living will; sister is designated to make medical decisions if needed. - Last CT chest in October 2023; last CTA abdomen and pelvis in November 2024. - Denies chest pain. - Denies low blood sugar episodes. - Denies hallucinations. - Denies worsening leg swelling. - Denies using CPAP or BiPAP for sleep. - Denies seeing a dentist private practice. - Denies changes in bowel habits, hematochezia, melena, dysuria, urinary frequency, or hematuria. COPD: - On 3L O2 at home, 2L when going out. - Takes Mucinex regularly. - Follow-up with Dr. Mayfield at 1430 today for pulmonary function testing to assess continued need for home oxygen. Anxiety and Depression: - Feels stressed by everyday life and worries about family, especially during winter. - Feels sertraline is working well for mood management. Pain Management: - Followed by Dr. Paul monthly. - Taking Butrans, tramadol, baclofen, and gabapentin. - Wishes she could take Requip during the day for leg pain but only takes it at night. - Feels pain medications are managing pain well. Diabetes Mellitus: - Does not regularly check blood sugar at home; needs a new lancet device. - Last A1c was pretty good. Lifestyle: - Exercises about 10 minutes a day, once a week, mostly walking around the house. - Eats a healthy diet several days a week; sister helps with grocery shopping. - Consumes alcohol occasionally; has half a bottle of wine left from last . - Does not drive; gave car to grandson. - Sleeps well; has a clock with a laser that projects the time on the ceiling. ROS: Constitutional: (+) fatigue Cardiovascular: (-) chest pain, (-) peripheral edema Gastrointestinal: (-) bowel habit changes, (-) melena Genitourinary: (-) dysuria, (-) urinary frequency, (-) hematuria Musculoskeletal: (+) leg pain, (-) fall (more content not included)... [facility] 03-22-2025 Note HNO ID: [id number] Author: ?, ?, ? Service: ? Author Type: ? Type: Progress Notes Filed: 03/22/2025 08:17 Note Text: POPULATION HEALTH NAVIGATION OUTREACH Action/FYI Patient outreach for HCCs HM due; Flu, A1c, KED (CMP OR BMP) Sent pt mcm/ updated todays appointment note Reason for Outreach Care Gap/HCC or Scheduling Wellness Visits Care Gaps due: HBA1C KED Flu Vaccine Patient Contacted: Unable or unnecessary to reach patient: [email or web address] message sent HCC related Updated appointment notes Navigation Signature: Juhi Sudheer Greene March 22, 2025 8:15 AM [facility] 03-22-2025 Note Patient Outreach (YESENIA TNAV) KANDI CROREIA ([id number]) 1945 F Date Time Provider Department 03/22/25 JALYN SMITH During your visit today, we recorded the following information about you: Juhi Villatoro 03/22/2025 8:17 AM Signed POPULATION HEALTH NAVIGATION OUTREACH Action/FYI Patient outreach for HCCs HM due; Flu, A1c, KED (CMP OR BMP) Sent pt mcm/ updated todays appointment note Reason for Outreach Care Gap/HCC or Scheduling Wellness Visits Care Gaps due: HBA1C KED Flu Vaccine Patient Contacted: Unable or unnecessary to reach patient: [email or web address] message sent HCC related Updated appointment notes Navigation Signature: Juhi Sudheer [facility] March 22, 2025 8:15 AM Allergies As of Date: 03/22/2025 Noted Allergy Reaction LISINOPRIL 12/26/2016 14 - Other: See Comments Comments: cough LYRICA (PREGABALIN) 01/13/2019 7 - Swelling Date Reviewed: 03/08/2025 Reviewed by: Oral Perdue APRN.REFINERY OPERATOR HELPER - Fully Assessed Reason for Visit: Population Health Navigation Outreach [3910] Cmt: [facility] Prescriptions as of 03/22/2025 - metoprolol succinate ER (TOPROL XL) 50 mg 24 hr tablet Take 1 tablet by mouth once daily. Hold if HR is less than 50 or systolic BP is less than 100 - gabapentin (NEURONTIN) 100 mg capsule Take 1 capsule by mouth three times a day for 180 days. - rOPINIRole (REQUIP) 2 mg tablet Take 1 tablet by mouth daily at bedtime. - Nebulizer Accessories kit 1 kit as needed. - ipratropium-albuterol (DUONEB) 0.5 mg-3 mg(2.5 mg base)/3 mL nebu Inhale 3 mL as instructed every 6 hours as needed for wheezing/shortness of breath. - baclofen 10 mg tablet Take 1 tablet by mouth three times a day. - fluticasone (FLONASE) 50 mcg/actuation nasal spray USE 1 SPRAY IN EACH NOSTRIL ONE TIME DAILY - ferrous sulfate 325 mg (65 mg iron) tablet Take 1 tablet by mouth two times a day with meals. - xzszejoqpz-fctjrbha-rtypyendeo (BREZTRI AEROSPHERE) 160-9-4.8 mcg/actuation HFA aerosol inhaler Inhale 2 puffs as instructed two times a day. - buprenorphine (BUTRANS) 7.5 mcg/hour transdermal patch Apply 1 patch as directed one time a week. - sertraline (ZOLOFT) 50 mg tablet Take 1 tab once a day. - hydroCHLOROthiazide 12.5 mg capsule Take 2 capsules by mouth once daily. - metFORMIN (GLUCOPHAGE) 500 mg tablet Take 1 tablet by mouth daily with breakfast. - oxybutynin XL (DITROPAN XL) 5 mg 24 hr tablet Take 1 tablet by mouth once daily. - oxybutynin XL (DITROPAN XL) 5 mg 24 hr tablet Take 1 tablet by mouth once daily. - Magnesium Oxide 500 mg magnesium tab Take 1 tablet by mouth once daily. - albuterol HFA (VENTOLIN HFA) 90 mcg/actuation inhaler Inhale 2 Puffs as instructed every 4 hours as needed for wheezing/shortness of breath. - traMADol (ULTRAM) 50 mg tablet Take 50 mg by mouth two times a day. - Lancets lancets Test blood sugar(s) 2 times daily. Dx: Type 2 DM - Controlled E11.9 Insulin: No - blood sugar diagnostic (BLOOD GLUCOSE TEST) test strip Test blood sugar(s) 2 times daily. Dx: Type 2 DM - Controlled E11.9 Insulin: No - COMPOUNDED PRESCRIPTION Oxygen via nasal canula 2 L N/C DX: copd and hypoxia - COMPOUNDED PRESCRIPTION Lightweight portable oxygen DX: copd, 2 L nc continuously Meds Comments as of 12/31/2018: 12/31/18 The medications are managed by this patient by: PATIENT Maria Alejandra Nolan (Bike Assembler) Problem List As Of Date 03/22/2025 Noted Resolved DDD (degenerative disc disease), lumbar [M51.36*01/28/2013 Backache, unspecified [M54.9] 03/14/2013 08/20/2016 COPD with chronic bronchitis (HCC) [J44.89] 08/16/2020 Pain, neck [M54.2] 03/31/2016 08/20/2016 Acute midline thoracic back pain [M54.6] 03/31/2016 08/20/2016 Recurrent major depression in partial remission*07/16/2016 Essential hypertension [I10] 07/25/2016 HTN (hypertension) [I10] 08/20/2016 Class 2 obesity with body mass index (BMI) of 3*06/17/2017 03/09/2024 Obesity, Class II, BMI 35-39.9 [E66.812] 12/02/2017 04/02/2018 On home oxygen therapy [Z99.81] 04/02/2018 Type 2 diabetes mellitus without complication, *05/13/2018 Thoracic aortic aneurysm (HCC) [I71.20] 12/23/2018 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] 12/30/2018 09/21/2023 Skin ulcer (HCC) [L98.499] 02/09/2019 08/16/2020 MICHEL (obstructive sleep apnea) [G47.33] 05/24/2019 Chronic respiratory failure with hypoxia (HCC) *05/24/2019 Centrilobular emphysema (HCC) [J43.2] 10/01/2022 Obesity, Class III, BMI 40-49.9 (morbid obesity*08/17/2021 10/01/2022 NYHA class 2 and ACC/AHA stage C acute on chron*12/10/2022 Abdominal aortic aneurysm (AAA) without rupture*09/09/2023 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 [facility] 03-08-2025 Note HNO ID: [id number] Author: ORAL PERDUE APRN.REFINERY OPERATOR HELPER Service: ? Author Type: Nurse Practitioner Type: Progress Notes Filed: 03/08/2025 12:25 Note Text: Pulmonary Medicine Patients name: Kandi Correia PCP: Jalyn Smith MD CC: follow-up HPI: Kandi Correia is a 79 year old female former 37-vinj-czxo smoker having quit in 2011 with PMH significant for obesity, HTN, fibromyalgia, descending aortic aneurysm with dissection, MICHEL not on CPAP, severe COPD (FEV1 32%), chronic hypoxemic respiratory failure. JERRELL 12/2023 with baseline symptoms. Current treatment with Breztri and as needed Albuterol. She presents today for follow-up with her daughter. Since her last visit, she denies any significant change in respiratory symptoms. Continues to feel well with regular use of Breztri. Today, patient reports baseline productive cough with white sputum. Sometimes mucus is thick and needs to use Mucinex. No hemoptysis. No wheezing, will occasionally have chest tightness. Will occasionally be short of breath at rest. Exertional dyspnea has not changed, will note with little activity. Per her daughter, she is not typically very active. Walks with a walker but is otherwise in a wheelchair for any particular distance. She is compliant with supplemental O2 but frequently breaths through her mouth and has to remind herself to breath through her nose. No fevers, chills, or night sweats. No recent hospitalizations or ED visits or upper respiratory infections. No unintended weight changes. Does not often use Albuterol. 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 If you have any questions, ask your nurse or doctor. CHANGE how you take these medications BLOOD GLUCOSE TEST test strip Generic drug: blood sugar diagnostic Test blood sugar(s) 2 times daily. Dx: Type 2 DM - Controlled E11.9 Insulin: No What changed: additional instructions COMPOUNDED PRESCRIPTION Oxygen via nasal canula 2 L N/C DX: copd and hypoxia What changed: additional instructions COMPOUNDED PRESCRIPTION Lightweight portable oxygen DX: copd, 2 L nc continuously What changed: additional instructions Lancets Test blood sugar(s) 2 times daily. Dx: Type 2 DM - Controlled E11.9 Insulin: No What changed: additional instructions CONTINUE taking these medications albuterol HFA 90 mcg/actuation inhaler Commonly known as: VENTOLIN HFA Inhale 2 Puffs as instructed every 4 hours as needed for wheezing/shortness of breath. baclofen 10 mg tablet Take 1 tablet by mouth three times a day. BREZTRI AEROSPHERE 160-9-4.8 mcg/actuation HFA aerosol inhaler Generic drug: eanhdhrcqy-luwtzmly-vdagxhyriw Inhale 2 puffs as instructed two times a day. buprenorphine 7.5 mcg/hour transdermal patch Commonly known as: BUTRANS ferrous sulfate 325 mg (65 mg iron) tablet Take 1 tablet by mouth two times a day with meals. fluticasone 50 mcg/actuation nasal spray Commonly known as: FLONASE USE 1 SPRAY IN EACH NOSTRIL ONE TIME DAILY gabapentin 100 mg capsule Commonly known as: NEURONTIN Take 1 capsule by mouth three times a day for 180 days. hydroCHLOROthiazide 12.5 mg capsule Take 2 capsules by mouth once daily. Magnesium Oxide 500 mg magnesium Tab Take 1 tablet by mouth once daily. metFORMIN 500 mg tablet Commonly known as: GLUCOPHAGE Take 1 tablet by mouth daily with breakfast. metoprolol succinate ER 50 mg 24 hr tablet Commonly known as: TOPROL XL Take 1 tablet by mouth once daily. Hold if HR is less than 50 or systolic BP is less than 100 * oxybutynin XL 5 mg 24 hr tablet Commonly known as: DITROPAN XL Take 1 tablet by mouth once daily. * oxybutynin XL 5 mg 24 hr tablet Commonly known as: DITROPAN XL Take 1 tablet by mouth once daily. rOPINIRole 2 mg tablet Commonly known as: REQUIP Take 1 tablet by mouth daily at bedtime. sertraline 50 mg tablet Commonly known as: ZOLOFT Take 1 tab once a day. ULTRAM 50 mg ta (more content not included)... [facility] 01-30-2025 Telephone encounter Note NOV none JERRELL 01/06/24 Patient electronically sent a request for the following prescription(s) Requested Prescriptions Pending Prescriptions Disp Refills fluticasone (FLONASE) 50 mcg/actuation nasal spray [Pharmacy Med Name: FLUTICASONE PROPIONATE 50 MCG/ACT Nasal Suspension] 32 g 3 Sig: USE 1 SPRAY IN EACH NOSTRIL ONE TIME DAILY Patient aware RX will be sent to pharmacy. No need to notify patient. Please review. Casandra Rasheed MA [facility] 01-30-2025 Miscellaneous Notes NOV none JERRELL 01/06/24 Patient electronically sent a request for the following prescription(s) Requested Prescriptions Pending Prescriptions Disp Refills fluticasone (FLONASE) 50 mcg/actuation nasal spray [Pharmacy Med Name: FLUTICASONE PROPIONATE 50 MCG/ACT Nasal Suspension] 32 g 3 Sig: USE 1 SPRAY IN EACH NOSTRIL ONE TIME DAILY Patient aware RX will be sent to pharmacy. No need to notify patient. Please review. Casandra Rasheed MA documented in this encounter [facility] 01-25-2025 Telephone encounter Note Mailed as requested. [facility] 01-25-2025 Miscellaneous Notes Mailed as requested. done Type of form: AEP confirming she has medical equipment in case of power outage Form received via walk in When form is completed, Mail form to envelope provider Form has been forwarded to Physician Desk: Dr. Smith Still a few questions on form to answer. Kalpana Sharif LPN documented in this encounter [facility] 01-24-2025 Telephone encounter Note done [facility] 01-24-2025 Telephone encounter Note Type of form: AEP confirming she has medical equipment in case of power outage Form received via walk in When form is completed, Mail form to envelope provider Form has been forwarded to Physician Desk: Dr. Smith Still a few questions on form to answer. Kalpana Sharif LPN [facility] 01-20-2025 Note HNO ID: [id number] Author: ?, ?, ? Service: ? Author Type: ? Type: Progress Notes Filed: 01/20/2025 09:55 Note Text: POPULATION HEALTH NAVIGATION OUTREACH Action/FYI Patient outreach for HCCs HM due; KED Lvm and sent mcm Reason for Outreach Care Gap/HCC or Scheduling Wellness Visits Care Gaps due: KED Patient Contacted: Unable or unnecessary to reach patient: Left message Sightlogixhart message sent HCC related Navigation Signature: Juhi Sudheer Greene January 20, 2025 9:52 AM [facility] 01-20-2025 History of Present illness Narrative POPULATION HEALTH NAVIGATION OUTREACH Action/FYI Patient outreach for HCCs HM due; KED Lvm and sent mcm Reason for Outreach Care Gap/HCC or Scheduling Wellness Visits Care Gaps due: KED Patient Contacted: Unable or unnecessary to reach patient: Left message Sightlogixhart message sent HCC related Navigation Signature: Juhi Greene January 20, 2025 9:52 AM documented in this encounter [facility] 01-20-2025 Note Patient Outreach (NE TNAV) KANDI CORREIA ([id number]) 1945 F Date Time Provider Department 01/20/25 JALYN SMITH During your visit today, we recorded the following information about you: Juhi Villatoro 01/20/2025 9:55 AM Signed POPULATION HEALTH NAVIGATION OUTREACH Action/FYI Patient outreach for HCCs HM due; COLETTE Lvm and sent mcm Reason for Outreach Care Gap/HCC or Scheduling Wellness Visits Care Gaps due: COLETTE Patient Contacted: Unable or unnecessary to reach patient: Left message [email or web address] message sent HCC related Navigation Signature: Juhi Greene January 20, 2025 9:52 AM Allergies As of Date: 01/20/2025 Noted Allergy Reaction LISINOPRIL 12/26/2016 14 - Other: See Comments Comments: cough LYRICA (PREGABALIN) 01/13/2019 7 - Swelling Date Reviewed: 09/07/2024 Reviewed by: Kalpana Sharif LPN - Fully Assessed Reason for Visit: Population Health Navigation Outreach [3910] Cmt: Ann Dotson Prescriptions as of 01/20/2025 - ferrous sulfate 325 mg (65 mg iron) tablet Take 1 tablet by mouth two times a day with meals. - exsdobifdw-rrfmmath-zepxpmllsu (BREZTRI AEROSPHERE) 160-9-4.8 mcg/actuation HFA aerosol inhaler Inhale 2 puffs as instructed two times a day. - buprenorphine (BUTRANS) 7.5 mcg/hour transdermal patch Apply 1 patch as directed one time a week. - sertraline (ZOLOFT) 50 mg tablet Take 1 tab once a day. - hydroCHLOROthiazide 12.5 mg capsule Take 2 capsules by mouth once daily. - rOPINIRole (REQUIP) 2 mg tablet Take 1 tablet by mouth daily at bedtime. - baclofen 10 mg tablet Take 1 tablet by mouth three times a day. - gabapentin (NEURONTIN) 100 mg capsule Take 1 capsule by mouth three times a day for 180 days. - metFORMIN (GLUCOPHAGE) 500 mg tablet Take 1 tablet by mouth daily with breakfast. - oxybutynin XL (DITROPAN XL) 5 mg 24 hr tablet Take 1 tablet by mouth once daily. - metoprolol succinate ER (TOPROL XL) 50 mg 24 hr tablet Take 1 tablet by mouth once daily. Hold if HR is less than 50 or systolic BP is less than 100 - oxybutynin XL (DITROPAN XL) 5 mg 24 hr tablet Take 1 tablet by mouth once daily. - Magnesium Oxide 500 mg magnesium tab Take 1 tablet by mouth once daily. - fluticasone (FLONASE) 50 mcg/actuation nasal spray USE 1 SPRAY IN EACH NOSTRIL ONE TIME DAILY - albuterol HFA (VENTOLIN HFA) 90 mcg/actuation inhaler Inhale 2 Puffs as instructed every 4 hours as needed for wheezing/shortness of breath. - traMADol (ULTRAM) 50 mg tablet Take 50 mg by mouth two times a day. - Lancets lancets Test blood sugar(s) 2 times daily. Dx: Type 2 DM - Controlled E11.9 Insulin: No - blood sugar diagnostic (BLOOD GLUCOSE TEST) test strip Test blood sugar(s) 2 times daily. 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] 08/16/2020 Pain, neck [M54.2] 03/31/2016 08/20/2016 Acute midline thoracic back pain [M54.6] 03/31/2016 08/20/2016 Recurrent major depression in partial remission*07/16/2016 Essential hypertension [I10] 07/25/2016 HTN (hypertension) [I10] 08/20/2016 Class 2 obesity with body mass index (BMI) of 3*06/17/2017 03/09/2024 Obesity, Class II, BMI 35-39.9 [E66.812] 12/02/2017 04/02/2018 On home oxygen therapy [Z99.81] 04/02/2018 Type 2 diabetes mellitus without complication, *05/13/2018 Thoracic aortic aneurysm (HCC) [I71.20] 12/23/2018 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] 12/30/2018 09/21/2023 Skin ulcer (HCC) [L98.499] 02/09/2019 08/16/2020 MICHEL (obstructive sleep apnea) [G47.33] 05/24/2019 Chronic respiratory failure with hypoxia (HCC) *05/24/2019 Centrilobular emphysema (HCC) [J43.2] 10/01/2022 Obesity, Class III, BMI 40-49.9 (morbid obesity*08/17/2021 10/01/2022 NYHA class 2 and ACC/AHA stage C acute on chron*12/10/2022 Abdominal aortic aneurysm (AAA) without rupture*09/09/2023 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 [facility] 01-09-2025 Miscellaneous Notes Faxed back as requested. done On desk for review. Notified daughter. She will have Dr Harman's office send form. I should be able to Daughter (Karson) calls to ask about surgical clearance. Karson reports that Dr. Harman's office is now asking for surgical clearance from Dr. Smith. Karson was initially told that patient only needed cardiac clearance and today was told they need forms from Dr. Smith as well. Karson asking if provider would be able to fill the forms out that they need without an appointment as she doesn't have any availability to bring her in for an appointment prior to the procedure. Karson requests call back at [phone]. Francoise Grady RN documented in this encounter [facility] 01-09-2025 Telephone encounter Note done [facility] 01-09-2025 Telephone encounter Note On desk for review. [facility] 01-09-2025 Telephone encounter Note Notified daughter. She will have Dr Harman's office send form. [facility] 01-09-2025 Telephone encounter Note I should be able to [facility] 01-09-2025 Telephone encounter Note Daughter (Karson) calls to ask about surgical clearance. Karson reports that Dr. Harman's office is now asking for surgical clearance from Dr. Smith. Karson was initially told that patient only needed cardiac clearance and today was told they need forms from Dr. Smith as well. Karson asking if provider would be able to fill the forms out that they need without an appointment as she doesn't have any availability to bring her in for an appointment prior to the procedure. Karson requests call back at [phone]. Francoise Grady RN [facility] 12-21-2024 Note HNO ID: [id number] Author: ?, ?, ? Service: ? Author Type: ? Type: Progress Notes Filed: 12/21/2024 10:12 Note Text: POPULATION HEALTH NAVIGATION OUTREACH Action/FYI Patient outreach for HCCs HM due; KED (cmp) Reason for Outreach Care Gap/HCC or Scheduling Wellness Visits Care Gaps due: KED Patient Contacted: Unable or unnecessary to reach patient: Left message [email or web address] message sent HCC related Navigation Signature: Juhi Willard Pss December 21, 2024 10:10 AM [facility] 12-21-2024 History of Present illness Narrative POPULATION HEALTH NAVIGATION OUTREACH Action/FYI Patient outreach for HCCs HM due; KED (cmp) Reason for Outreach Care Gap/HCC or Scheduling Wellness Visits Care Gaps due: KED Patient Contacted: Unable or unnecessary to reach patient: Left message Sightlogixhart message sent HCC related Navigation Signature: Juhioswald Greene December 21, 2024 10:10 AM documented in this encounter [facility] 12-21-2024 Note Patient Outreach (YESENIA CARABALLOAV) KANDI CORREIA ([id number]) 1945 F Date Time Provider Department 12/21/24 JALYN SMITH During your visit today, we recorded the following information about you: Juhi Villatoro 12/21/2024 10:12 AM Signed POPULATION HEALTH NAVIGATION OUTREACH Action/FYI Patient outreach for HCCs HM due; COLETTE ([facility]) Reason for Outreach Care Gap/HCC or Scheduling Wellness Visits Care Gaps due: KED Patient Contacted: Unable or unnecessary to reach patient: Left message [employer] message sent HCC related Navigation Signature: Juhi Greene December 21, 2024 10:10 AM Allergies As of Date: 12/21/2024 Noted Allergy Reaction LISINOPRIL 12/26/2016 14 - Other: See Comments Comments: cough LYRICA (PREGABALIN) 01/13/2019 7 - Swelling Date Reviewed: 09/07/2024 Reviewed by: Kalpana Sharif LPN - Fully Assessed Reason for Visit: Population Health Navigation Outreach [3910] Cmt: Ann Dotson Prescriptions as of 12/21/2024 - xuiprmevaq-xlukisda-ofnspfkmff (BREZTRI AEROSPHERE) 160-9-4.8 mcg/actuation HFA aerosol inhaler Inhale 2 puffs as instructed two times a day. - buprenorphine (BUTRANS) 7.5 mcg/hour transdermal patch Apply 1 patch as directed one time a week. - sertraline (ZOLOFT) 50 mg tablet Take 1 tab once a day. - hydroCHLOROthiazide 12.5 mg capsule Take 2 capsules by mouth once daily. - rOPINIRole (REQUIP) 2 mg tablet Take 1 tablet by mouth daily at bedtime. - baclofen 10 mg tablet Take 1 tablet by mouth three times a day. - gabapentin (NEURONTIN) 100 mg capsule Take 1 capsule by mouth three times a day for 180 days. - metFORMIN (GLUCOPHAGE) 500 mg tablet Take 1 tablet by mouth daily with breakfast. - oxybutynin XL (DITROPAN XL) 5 mg 24 hr tablet Take 1 tablet by mouth once daily. - metoprolol succinate ER (TOPROL XL) 50 mg 24 hr tablet Take 1 tablet by mouth once daily. Hold if HR is less than 50 or systolic BP is less than 100 - oxybutynin XL (DITROPAN XL) 5 mg 24 hr tablet Take 1 tablet by mouth once daily. - Magnesium Oxide 500 mg magnesium tab Take 1 tablet by mouth once daily. - fluticasone (FLONASE) 50 mcg/actuation nasal spray USE 1 SPRAY IN EACH NOSTRIL ONE TIME DAILY - albuterol HFA (VENTOLIN HFA) 90 mcg/actuation inhaler Inhale 2 Puffs as instructed every 4 hours as needed for wheezing/shortness of breath. - traMADol (ULTRAM) 50 mg tablet Take 50 mg by mouth two times a day. - Lancets lancets Test blood sugar(s) 2 times daily. Dx: Type 2 DM - Controlled E11.9 Insulin: No - blood sugar diagnostic (BLOOD GLUCOSE TEST) test strip Test blood sugar(s) 2 times daily. 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] 08/16/2020 Pain, neck [M54.2] 03/31/2016 08/20/2016 Acute midline thoracic back pain [M54.6] 03/31/2016 08/20/2016 Recurrent major depression in partial remission*07/16/2016 Essential hypertension [I10] 07/25/2016 HTN (hypertension) [I10] 08/20/2016 Class 2 obesity with body mass index (BMI) of 3*06/17/2017 03/09/2024 Obesity, Class II, BMI 35-39.9 [E66.812] 12/02/2017 04/02/2018 On home oxygen therapy [Z99.81] 04/02/2018 Type 2 diabetes mellitus without complication, *05/13/2018 Thoracic aortic aneurysm (HCC) [I71.20] 12/23/2018 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] 12/30/2018 09/21/2023 Skin ulcer (HCC) [L98.499] 02/09/2019 08/16/2020 MICHEL (obstructive sleep apnea) [G47.33] 05/24/2019 Chronic respiratory failure with hypoxia (HCC) *05/24/2019 Centrilobular emphysema (HCC) [J43.2] 10/01/2022 Obesity, Class III, BMI 40-49.9 (morbid obesity*08/17/2021 10/01/2022 NYHA class 2 and ACC/AHA stage C acute on chron*12/10/2022 Abdominal aortic aneurysm (AAA) without rupture*09/09/2023 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 Transmission complete. Encounter closed, [facility] 12-15-2024 Miscellaneous Notes Clearance forms signed and faxed to Hemal Marie at [phone]. Transmission complete. Encounter closed, documented in this encounter [facility] 12-02-2024 History of Present illness Narrative Radiology Service Progress Note PATIENT NAME: Kandi Correia DATE OF SERVICE: December 02, 2024 TIME: 1:49 PM PATIENT IDENTITY VERIFICATION COMPLETED USING TWO (2) IDENTIFIERS: Name and Date of confirmed by patient verbally and Name and Date of confirmed by identification band. FALL SCREENING: Has the patient had 2 falls in the last year or 1 fall with injury or currently using an Ambulatory Assistive Device (Walker, Cane, Wheelchair, Crutches, etc.)? No PATIENT GENDER DATA: Assigned female at . status: : No status: NO. PATIENT RELEVANT IMPLANT DATA REVIEWED: Not Applicable PATIENT PRESENTS WITH AN IMPLANTABLE OR ATTACHED PRESSER HAND: No RADIOLOGY DEPARTMENT: CT; Exam(s) Completed: CTA Abdomen Pelvis PERIPHERAL IV DATA: Site assessment: Clean,Dry and Intact, Site disposition Discontinued SIGNED BY: RT Venice(R) December 02, 2024 1:49 PM documented in this encounter [facility] 12-02-2024 Note HNO ID: [id number] Author: ROLF GUZMAN RT(Martin) Service: Radiology Author Type: Technologist Type: Progress Notes Filed: 12/02/2024 13:50 Note Text: Radiology Service Progress Note PATIENT NAME: Kandi Correia DATE OF SERVICE: December 02, 2024 TIME: 1:49 PM PATIENT IDENTITY VERIFICATION COMPLETED USING TWO (2) IDENTIFIERS: Name and Date of confirmed by patient verbally and Name and Date of confirmed by identification band. FALL SCREENING: Has the patient had 2 falls in the last year or 1 fall with injury or currently using an Ambulatory Assistive Device (Walker, Cane, Wheelchair, Crutches, etc.)? No PATIENT GENDER DATA: Assigned female at . status: : No status: NO. PATIENT RELEVANT IMPLANT DATA REVIEWED: Not Applicable PATIENT PRESENTS WITH AN IMPLANTABLE OR ATTACHED PRESSER HAND: No RADIOLOGY DEPARTMENT: CT; Exam(s) Completed: CTA Abdomen Pelvis PERIPHERAL IV DATA: Site assessment: Clean,Dry and Intact, Site disposition Discontinued SIGNED BY: RT Venice(R) December 02, 2024 1:49 PM [facility] 12-02-2024 Nurse Note Radiology Service Progress Note DATE OF SERVICE: December 02, 2024 TIME: 1:36 PM PATIENT WEIGHT: 173 LBS PATIENT IDENTITY VERIFICATION COMPLETED USING TWO (2) STANDARD IDENTIFIERS: Name and Date of confirmed by patient verbally. FALL SCREENING: Has the patient had 2 falls in the last year or 1 fall with injury or currently using an Ambulatory Assistive Device (Walker, Cane, Wheelchair, Crutches, etc.)? Yes, Patient High Risk for Falls What interventions were put in place to prevent falls during this visit? Increased Observations by Caregivers PATIENT GENDER DATA: Assigned female at . status: : No status: NO. ALLERGIES: Reviewed and unchanged CONTRAST ALLERGY: No EXAM: CT -CONTRAST INDUCED NEPHROPATHY RISK FACTORS: Patient age > 60 years CREATININE: Creatinine Date Value Ref Range Status 12/02/2024 0.89 0.58 - 0.96 mg/dL Final 03/09/2024 0.89 0.58 - 0.96 mg/dL Final 09/23/2023 0.93 0.58 - 0.96 mg/dL Final Estimated Glomerular Filtration Rate Date Value Ref Range Status 12/02/2024 67 >=60 mL/min/1.73m Final Comment: Estimated Glomerular Filtration Rate (eGFR) is calculated using the 2020 CKD-EPI creatinine equation. This equation utilizes serum creatinine, sex, and age as parameters. The creatinine assay has traceable calibration to isotope dilution-mass spectrometry. Refer to KDIGO guidelines for clinical interpretation. In patients with unstable renal function, e.g. those with acute kidney injury, the eGFR may not accurately reflect actual GFR. eGFR- Date Value Ref Range Status 01/11/2021 >60 Final P.O.C.T. RESULTS: POC done: Yes, See Lab Tab December 02, 2024 TREATMENT: N/A IV SITE: Ambulatory: A peripheral IV was started in the Left antecubital site with a Angio cath: 20 gauge. IV SITE APPEARANCE: Clean,Dry and Intact SIGNATURE: Ely Day RN PATIENT NAME: Kandi Correia DATE: December 02, 2024 TIME: 1:36 PM [facility] 12-02-2024 Nurse Note Radiology Service Progress Note DATE OF SERVICE: December 02, 2024 TIME: 1:36 PM PATIENT WEIGHT: 173 LBS PATIENT IDENTITY VERIFICATION COMPLETED USING TWO (2) STANDARD IDENTIFIERS: Name and Date of confirmed by patient verbally. FALL SCREENING: Has the patient had 2 falls in the last year or 1 fall with injury or currently using an Ambulatory Assistive Device (Walker, Cane, Wheelchair, Crutches, etc.)? Yes, Patient High Risk for Falls What interventions were put in place to prevent falls during this visit? Increased Observations by Caregivers PATIENT GENDER DATA: Assigned female at . status: : No status: NO. ALLERGIES: Reviewed and unchanged CONTRAST ALLERGY: No EXAM: CT -CONTRAST INDUCED NEPHROPATHY RISK FACTORS: Patient age > 60 years CREATININE: Creatinine Date Value Ref Range Status 12/02/2024 0.89 0.58 - 0.96 mg/dL Final 03/09/2024 0.89 0.58 - 0.96 mg/dL Final 09/23/2023 0.93 0.58 - 0.96 mg/dL Final Estimated Glomerular Filtration Rate Date Value Ref Range Status 12/02/2024 67 >=60 mL/min/1.73m Final Comment: Estimated Glomerular Filtration Rate (eGFR) is calculated using the 2020 CKD-EPI creatinine equation. This equation utilizes serum creatinine, sex, and age as parameters. The creatinine assay has traceable calibration to isotope dilution-mass spectrometry. Refer to KDIGO guidelines for clinical interpretation. In patients with unstable renal function, e.g. those with acute kidney injury, the eGFR may not accurately reflect actual GFR. eGFR- Date Value Ref Range Status 01/11/2021 >60 Final P.O.C.T. RESULTS: POC done: Yes, See Lab Tab December 02, 2024 TREATMENT: N/A IV SITE: Ambulatory: A peripheral IV was started in the Left antecubital site with a Angio cath: 20 gauge. IV SITE APPEARANCE: Clean,Dry and Intact SIGNATURE: Ely Day RN PATIENT NAME: Kandi Correia DATE: December 02, 2024 TIME: 1:36 PM documented in this encounter [facility] 11-30-2024 Telephone encounter Note RX pended for mail order. JERRELL 01/06/24 [facility] 11-30-2024 Miscellaneous Notes RX pended for mail order. JERRELL 01/06/24 documented in this encounter [facility] 11-28-2024 Telephone encounter Note The breztri was being ordered by pulmonology. [facility] 11-28-2024 Miscellaneous Notes The breztri was being ordered by pulmonology. documented in this encounter [facility] 11-24-2024 Note HNO ID: [id number] Author: ?, ?, ? Service: ? Author Type: ? Type: Progress Notes Filed: 11/24/2024 12:50 Note Text: POPULATION HEALTH NAVIGATION OUTREACH Action/FYI Patient returned myc message. Abraham sent back message to help schedule KED. Reason for Outreach Returned Call/MyChart Patient Contacted: Spoke to patient/parent/or legal guardian Patient identified by name and date of : Yes Returned call/MyChart actions taken: MyChart message sent Navigation Signature: Juhi Sudheer Greene November 24, 2024 12:50 PM [facility] 11-21-2024 Note HNO ID: [id number] Author: ?, ?, ? Service: ? Author Type: ? Type: Progress Notes Filed: 11/21/2024 10:39 Note Text: POPULATION HEALTH NAVIGATION OUTREACH Action/FYI Patient outreach for Hcc gaps; KED. Lvm and sent mychart to close gaps. Updated appointment notes. Reason for Outreach Care Gap/HCC or Scheduling Wellness Visits Care Gaps due: KED Patient Contacted: Unable or unnecessary to reach patient: Left message MyChart message sent HCC related Updated appointment notes Navigation Signature: Juhi Greene November 21, 2024 10:28 AM [facility] 11-21-2024 History of Present illness Narrative POPULATION HEALTH NAVIGATION OUTREACH Action/FYI Patient outreach for Hcc gaps; Lvm and sent mychart to close gaps. Updated appointment notes. Reason for Outreach Care Gap/HCC or Scheduling Wellness Visits Care Gaps due: KED Patient Contacted: Unable or unnecessary to reach patient: Left message MyChart message sent HCC related Updated appointment notes Navigation Signature: Juhi Greene November 21, 2024 10:28 AM documented in this encounter [facility] 11-21-2024 Note Patient Outreach (NE TNAV) KANDI CORREIA ([id number]) 1945 F Date Time Provider Department 11/21/24 JALYN SMITH During your visit today, we recorded the following information about you: Juhi Villatoro 11/21/2024 10:39 AM Signed POPULATION HEALTH NAVIGATION OUTREACH Action/FYI Patient outreach for Hcc gaps; KEAlbino Lvm and sent mychart to close gaps. Updated appointment notes. Reason for Outreach Care Gap/HCC or Scheduling Wellness Visits Care Gaps due: KED Patient Contacted: Unable or unnecessary to reach patient: Left message MyChart message sent HCC related Updated appointment notes Navigation Signature: Juhi Willard [facility] November 21, 2024 10:28 AM Juhi Villatoro 11/24/2024 12:50 PM Signed POPULATION HEALTH NAVIGATION OUTREACH Action/FYI Patient returned myc message. Abraham sent back message to help schedule KED. Reason for Outreach Returned Call/MyChart Patient Contacted: Spoke to patient/parent/or legal guardian Patient identified by name and date of : Yes Returned call/MyChart actions taken: MyChart message sent Navigation Signature: Juhi Willard [facility] November 24, 2024 12:50 PM Allergies As of Date: 11/21/2024 Noted Allergy Reaction LISINOPRIL 12/26/2016 14 - Other: See Comments Comments: cough LYRICA (PREGABALIN) 01/13/2019 7 - Swelling Date Reviewed: 09/07/2024 Reviewed by: Kalpana Sharif LPN - Fully Assessed Reason for Visit: Population Health Navigation Outreach [3910] Cmt: Ann Dotson Prescriptions as of 11/24/2024 - sertraline (ZOLOFT) 50 mg tablet Take 1 tab once a day. - hydroCHLOROthiazide 12.5 mg capsule Take 2 capsules by mouth once daily. - rOPINIRole (REQUIP) 2 mg tablet Take 1 tablet by mouth daily at bedtime. - baclofen 10 mg tablet Take 1 tablet by mouth three times a day. - gabapentin (NEURONTIN) 100 mg capsule Take 1 capsule by mouth three times a day for 180 days. - metFORMIN (GLUCOPHAGE) 500 mg tablet Take 1 tablet by mouth daily with breakfast. - oxybutynin XL (DITROPAN XL) 5 mg 24 hr tablet Take 1 tablet by mouth once daily. - metoprolol succinate ER (TOPROL XL) 50 mg 24 hr tablet Take 1 tablet by mouth once daily. Hold if HR is less than 50 or systolic BP is less than 100 - oxybutynin XL (DITROPAN XL) 5 mg 24 hr tablet Take 1 tablet by mouth once daily. - Magnesium Oxide 500 mg magnesium tab Take 1 tablet by mouth once daily. - qprlczcneg-nbmcjjco-pkghpdfiaq (BREZTRI AEROSPHERE) 160-9-4.8 mcg/actuation HFA aerosol inhaler Inhale 2 Puffs as instructed two times a day. - fluticasone (FLONASE) 50 mcg/actuation nasal spray USE 1 SPRAY IN EACH NOSTRIL ONE TIME DAILY - albuterol HFA (VENTOLIN HFA) 90 mcg/actuation inhaler Inhale 2 Puffs as instructed every 4 hours as needed for wheezing/shortness of breath. - traMADol (ULTRAM) 50 mg tablet Take 50 mg by mouth two times a day. - Lancets lancets Test blood sugar(s) 2 times daily. Dx: Type 2 DM - Controlled E11.9 Insulin: No - blood sugar diagnostic (BLOOD GLUCOSE TEST) test strip Test blood sugar(s) 2 times daily. 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] 08/16/2020 Pain, neck [M54.2] 03/31/2016 08/20/2016 Acute midline thoracic back pain [M54.6] 03/31/2016 08/20/2016 Recurrent major depression in partial remission*07/16/2016 Essential hypertension [I10] 07/25/2016 HTN (hypertension) [I10] 08/20/2016 Class 2 obesity with body mass index (BMI) of 3*06/17/2017 03/09/2024 Obesity, Class II, BMI 35-39.9 [E66.812] 12/02/2017 04/02/2018 On home oxygen therapy [Z99.81] 04/02/2018 Type 2 diabetes mellitus without complication, *05/13/2018 Thoracic aortic aneurysm (HCC) [I71.20] 12/23/2018 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] 12/30/2018 09/21/2023 Skin ulcer (HCC) [L98.499] 02/09/2019 08/16/2020 MICHEL (obstructive sleep apnea) [G47.33] 05/24/2019 Chronic respiratory failure with hypoxia (HCC) *05/24/2019 Centrilobular emphysema (HCC) [J43.2] 10/01/2022 Obesity, Class III, BMI 40-49.9 (morbid obesity*08/17/2021 10/01/2022 NYHA class 2 and ACC/AHA stage C acute on chron*12/10/2022 Abdominal aortic aneurysm (AAA) without rupture*09/09/2023 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 [facility] 11-04-2024 Telephone encounter Note Called patient and discussed. She is going to contact office to see if maybe can follow up as a VV after CT scan. [facility] 11-04-2024 Miscellaneous Notes Called patient and discussed. She is going to contact office to see if maybe can follow up as a VV after CT scan. documented in this encounter [facility] 11-01-2024 Telephone encounter Note Please see pt message Jojo Shah MA [facility] 11-01-2024 Miscellaneous Notes Please see pt message Jojo Shah MA documented in this encounter [facility] 10-18-2024 Telephone encounter Note See pt message. Rx for Requip [facility] not [facility]. Rx pending with correct pharmacy. Aj Hermosillo LPN [facility] 10-18-2024 Miscellaneous Notes See pt message. Rx for Requip went to [facility], not [facility]. Rx pending with correct pharmacy. Aj Hermosillo LPN documented in this encounter [facility] 10-10-2024 Note HNO ID: [id number] Author: KATHERINE GÓMEZ RN Service: ? Author Type: Registered Nurse Type: Progress Notes Filed: 10/10/2024 12:26 Note Text: Value Based Care Coordination Chart Review Provider Action / FYI: Upon review of patient chart, the patient is excluded from Chronic Disease Management Patient is not a candidate for CDM at this time and placed in the following status: Unable to reach Action taken: No action needed . Katherine Gómez RN October 10, 2024 12:26 PM [facility] 10-10-2024 History of Present illness Narrative Value Based Care Coordination Chart Review Provider Action / FYI: Upon review of patient chart, the patient is excluded from Chronic Disease Management Patient is not a candidate for CDM at this time and placed in the following status: Unable to reach Action taken: No action needed . Katherine Gómez RN October 10, 2024 12:26 PM documented in this encounter [facility] 10-10-2024 Note Patient Outreach (AM BC) KANDI CORREIA ([id number]) 1945 F Date Time Provider Department 10/10/24 KATHERINE GÓMEZ [facility] your visit today, we recorded the following information about you: Katherine Gómez RN 10/10/2024 12:26 PM Signed Value Based Care Coordination Chart Review Provider Action / FYI: Upon review of patient chart, the patient is excluded from Chronic Disease Management Patient is not a candidate for CDM at this time and placed in the following status: Unable to reach Action taken: No action needed . 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 - baclofen 10 mg tablet Take 1 tablet by mouth three times a day. - gabapentin (NEURONTIN) 100 mg capsule Take 1 capsule by mouth three times a day for 180 days. - metFORMIN (GLUCOPHAGE) 500 mg tablet Take 1 tablet by mouth daily with breakfast. - oxybutynin XL (DITROPAN XL) 5 mg 24 hr tablet Take 1 tablet by mouth once daily. - metoprolol succinate ER (TOPROL XL) 50 mg 24 hr tablet Take 1 tablet by mouth once daily. Hold if HR is less than 50 or systolic BP is less than 100 - oxybutynin XL (DITROPAN XL) 5 mg 24 hr tablet Take 1 tablet by mouth once daily. - hydroCHLOROthiazide 12.5 mg capsule Take 2 capsules by mouth once daily. - sertraline (ZOLOFT) 50 mg tablet Take 1 tab once a day. - Magnesium Oxide 500 mg magnesium tab Take 1 tablet by mouth once daily. - nluxawrasq-jmbmrxkg-dlzmttxhox (BREZTRI AEROSPHERE) 160-9-4.8 mcg/actuation HFA aerosol inhaler Inhale 2 Puffs as instructed two times a day. - fluticasone (FLONASE) 50 mcg/actuation nasal spray USE 1 SPRAY IN EACH NOSTRIL ONE TIME DAILY - albuterol HFA (VENTOLIN HFA) 90 mcg/actuation inhaler Inhale 2 Puffs as instructed every 4 hours as needed for wheezing/shortness of breath. - traMADol (ULTRAM) 50 mg tablet Take 50 mg by mouth two times a day. - Lancets lancets Test blood sugar(s) 2 times daily. Dx: Type 2 DM - Controlled E11.9 Insulin: No - blood sugar diagnostic (BLOOD GLUCOSE TEST) test strip Test blood sugar(s) 2 times daily. 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] 08/16/2020 Pain, neck [M54.2] 03/31/2016 08/20/2016 Acute midline thoracic back pain [M54.6] 03/31/2016 08/20/2016 Recurrent major depression in partial remission*07/16/2016 Essential hypertension [I10] 07/25/2016 HTN (hypertension) [I10] 08/20/2016 Class 2 obesity with body mass index (BMI) of 3*06/17/2017 03/09/2024 Obesity, Class II, BMI 35-39.9 [E66.812] 12/02/2017 04/02/2018 On home oxygen therapy [Z99.81] 04/02/2018 Type 2 diabetes mellitus without complication, *05/13/2018 Thoracic aortic aneurysm (HCC) [I71.20] 12/23/2018 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] 12/30/2018 09/21/2023 Skin ulcer (HCC) [L98.499] 02/09/2019 08/16/2020 MICHEL (obstructive sleep apnea) [G47.33] 05/24/2019 Chronic respiratory failure with hypoxia (HCC) *05/24/2019 Centrilobular emphysema (HCC) [J43.2] 10/01/2022 Obesity, Class III, BMI 40-49.9 (morbid obesity*08/17/2021 10/01/2022 NYHA class 2 and ACC/AHA stage C acute on chron*12/10/2022 Abdominal aortic aneurysm (AAA) without rupture*09/09/2023 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 Natalie Gonzalez MA [facility] 10-05-2024 Miscellaneous Notes See [employer] message. Natalie Gonzalez MA documented in this encounter [facility] 10-03-2024 Telephone encounter Note Prescription Refill Information The patient has been identified by name and date of : Yes Caregiver verified no other encounters exist for this prescription request: Yes Caregiver confirmed with patient/requestor that no other refills are due, in the near future, with this provider at this time: Yes The last office visit in the department: 09/07/24 Does the patient have a future office visit with this provider/department: Yes, 03/22/25 Requested Prescriptions Pending Prescriptions Disp Refills baclofen 10 mg tablet 270 tablet 1 Sig: Take 1 tablet by mouth three times a day. *Duplicate Request. Rx sent to pharmacy in another encounter. Aj Hermosillo LPN October 03, 2024 6:24 PM [facility] 10-03-2024 Miscellaneous Notes Prescription Refill Information The patient has been identified by name and date of : Yes Caregiver verified no other encounters exist for this prescription request: Yes Caregiver confirmed with patient/requestor that no other refills are due, in the near future, with this provider at this time: Yes The last office visit in the department: 09/07/24 Does the patient have a future office visit with this provider/department: Yes, 03/22/25 Requested Prescriptions Pending Prescriptions Disp Refills baclofen 10 mg tablet 270 tablet 1 Sig: Take 1 tablet by mouth three times a day. *Duplicate Request. Rx sent to pharmacy in another encounter. Aj Hermosillo LPN October 03, 2024 6:24 PM documented in this encounter [facility] 10-03-2024 Telephone encounter Note Prescription Refill Information The patient has been identified by name and date of : Yes Caregiver verified no other encounters exist for this prescription request: Yes Caregiver confirmed with patient/requestor that no other refills are due, in the near future, with this provider at this time: Yes The last office visit in the department: 09/07/2024 Does the patient have a future office visit with this provider/department: Yes Requested Prescriptions Pending Prescriptions Disp Refills gabapentin (NEURONTIN) 100 mg capsule 270 capsule 1 Sig: Take 1 capsule by mouth three times a day for 180 days. Refused Prescriptions Disp Refills rOPINIRole (REQUIP) 0.5 mg tablet 270 tablet 1 Sig: Take 3 tablets by mouth daily at bedtime. Casandra Burrell LPN October 03, 2024 2:19 PM [facility] 10-03-2024 Miscellaneous Notes Prescription Refill Information The patient has been identified by name and date of : Yes Caregiver verified no other encounters exist for this prescription request: Yes Caregiver confirmed with patient/requestor that no other refills are due, in the near future, with this provider at this time: Yes The last office visit in the department: 09/07/2024 Does the patient have a future office visit with this provider/department: Yes Requested Prescriptions Pending Prescriptions Disp Refills gabapentin (NEURONTIN) 100 mg capsule 270 capsule 1 Sig: Take 1 capsule by mouth three times a day for 180 days. Refused Prescriptions Disp Refills rOPINIRole (REQUIP) 0.5 mg tablet 270 tablet 1 Sig: Take 3 tablets by mouth daily at bedtime. Casandra Burrell LPN October 03, 2024 2:19 PM documented in this encounter [facility] 10-03-2024 Telephone encounter Note Prescription Refill Information The patient has been identified by name and date of : Yes Caregiver verified no other encounters exist for this prescription request: Yes Caregiver confirmed with patient/requestor that no other refills are due, in the near future, with this provider at this time: Yes The last office visit in the department: 09/07/2024 Does the patient have a future office visit with this provider/department: Yes Requested Prescriptions Pending Prescriptions Disp Refills baclofen 10 mg tablet 270 tablet 1 Sig: Take 1 tablet by mouth three times a day. Casandra Burrell LPN October 03, 2024 2:18 PM [facility] 10-03-2024 Miscellaneous Notes Prescription Refill Information The patient has been identified by name and date of : Yes Caregiver verified no other encounters exist for this prescription request: Yes Caregiver confirmed with patient/requestor that no other refills are due, in the near future, with this provider at this time: Yes The last office visit in the department: 09/07/2024 Does the patient have a future office visit with this provider/department: Yes Requested Prescriptions Pending Prescriptions Disp Refills baclofen 10 mg tablet 270 tablet 1 Sig: Take 1 tablet by mouth three times a day. Casandra Burrell LPN October 03, 2024 2:18 PM documented in this encounter [facility] 09-21-2024 Telephone encounter Note Prescription Refill Information The patient has been identified by name and date of : Yes Caregiver verified no other encounters exist for this prescription request: Yes Caregiver confirmed with patient/requestor that no other refills are due, in the near future, with this provider at this time: Yes The last office visit in the department: 09/07/24 Does the patient have a future office visit with this provider/department: Yes Requested Prescriptions Pending Prescriptions Disp Refills metFORMIN (GLUCOPHAGE) 500 mg tablet 90 tablet 3 Sig: Take 1 tablet by mouth daily with breakfast. Kalpana Sharif LPN September 21, 2024 12:49 PM [facility] 09-21-2024 Miscellaneous Notes Prescription Refill Information The patient has been identified by name and date of : Yes Caregiver verified no other encounters exist for this prescription request: Yes Caregiver confirmed with patient/requestor that no other refills are due, in the near future, with this provider at this time: Yes The last office visit in the department: 09/07/24 Does the patient have a future office visit with this provider/department: Yes Requested Prescriptions Pending Prescriptions Disp Refills metFORMIN (GLUCOPHAGE) 500 mg tablet 90 tablet 3 Sig: Take 1 tablet by mouth daily with breakfast. Kalpana Sharif LPN September 21, 2024 12:49 PM documented in this encounter [facility] 09-07-2024 Note HNO ID: [id number] Author: JALYN SMITH MD Service: ? Author Type: Physician Type: Progress Notes Filed: 09/07/2024 15:25 Note Text: Patient presents with: 6 Month Exam ER F/U HPI: Patient presents today for office visit for follow up. HOSPITAL/ER FOLLOW UP: Reason for visit: abd pain Which facility: [facility] Date of visit: 09/05/24 Diagnosis: abd pain Testing done: CT scan, urine test, lab work. Started after eating taco [place]is. Had some constipation. After she moved her bowels it felt better. No nausea or vomiting. No fever or chills. No urinary issues. Treatment given: no changes were made Current symptoms: on and off has had the pain but not nearly as bad Oxygen at home is 3L/min. Swelling stable. Breathing stable. Daughter feels that Kayla is helping her more. No chest pain. DM: Can't get lancet to work to check glucose. D Urine culture showed a uti. She was not started on antibiotics yet. Still seeing pulmonary and vascular. We had discussed having her see gi for her anemia and she has declined. Labs showed her chronic anemia. May be in part due to ckd. Cmp was stable. Will not repeat. MEDICATIONS: Current Outpatient Medications Medication Sig oxybutynin XL (DITROPAN XL) 5 mg 24 hr tablet Take 1 tablet by mouth once daily. rOPINIRole (REQUIP) 0.5 mg tablet Take 3 tablets by mouth daily at bedtime. metoprolol succinate ER (TOPROL XL) 50 mg 24 hr tablet Take 1 tablet by mouth once daily. Hold if HR is less than 50 or systolic BP is less than 100 rOPINIRole (REQUIP) 0.5 mg tablet Take 3 tablets by mouth daily at bedtime. oxybutynin XL (DITROPAN XL) 5 mg 24 hr tablet Take 1 tablet by mouth once daily. hydroCHLOROthiazide 12.5 mg capsule Take 2 capsules by mouth once daily. sertraline (ZOLOFT) 50 mg tablet Take 1 tab once a day. Magnesium Oxide 500 mg magnesium tab Take 1 tablet by mouth once daily. rlkmfkfnli-kgaihryc-mgmfxtmowr (BREZTRI AEROSPHERE) 160-9-4.8 mcg/actuation HFA aerosol inhaler Inhale 2 Puffs as instructed two times a day. gabapentin (NEURONTIN) 100 mg capsule Take 1 capsule by mouth three times a day for 180 days. fluticasone (FLONASE) 50 mcg/actuation nasal spray USE 1 SPRAY IN EACH NOSTRIL ONE TIME DAILY baclofen 10 mg tablet Take 1 tablet by mouth three times a day. albuterol HFA (VENTOLIN HFA) 90 mcg/actuation inhaler Inhale 2 Puffs as instructed every 4 hours as needed for wheezing/shortness of breath. metFORMIN (GLUCOPHAGE) 500 mg tablet Take 1 tablet by mouth daily with breakfast. ferrous sulfate 325 mg (65 mg iron) tablet Take 1 tablet by mouth two times a day with meals. traMADol (ULTRAM) 50 mg tablet Take 50 mg by mouth two times a day. Lancets lancets Test blood sugar(s) 2 times daily. Dx: Type 2 DM - Controlled E11.9 Insulin: No (Patient taking differently: Test blood sugar(s) 2 times daily. Dx: Type 2 DM - Controlled E11.9 Insulin: No Takes blood sugar once daily) blood sugar diagnostic (BLOOD GLUCOSE TEST) test strip Test blood sugar(s) 2 times daily. Dx: Type 2 DM - Controlled E11.9 Insulin: No (Patient taking differently: Test blood sugar(s) 2 times daily. Dx: Type 2 DM - Controlled E11.9 Insulin: No Takes blood sugar once daily) COMPOUNDED PRESCRIPTION Oxygen via nasal canula 2 L N/C DX: copd and hypoxia (Patient taking differently: Oxygen via nasal canula 2 L N/C DX: copd and hypoxia Uses O2 at 3 l/m via NC) COMPOUNDED PRESCRIPTION Lightweight portable oxygen DX: copd, 2 L nc continuously (Patient taking differently: Lightweight portable oxygen DX: copd, 2 L nc continuously Uses at 3 l/m via NC) No current facility-administered medications for this visit. ALLERGIES: ALLERGIES Allergen Reactions Lisinopril Other: See Comments cough Lyrica [Pregabalin] Swelling PAST MEDICAL HISTORY Diagnosis Date AAA (abdominal aortic aneurysm) ([facility]) Abdominal aortic aneurysm (AAA) without rupture ([facility]) 09/09/2023 Aneurysm of left common iliac artery ([facility]) 11/05/2023 Aneurysm, thoracic aortic ([facility]) Arthritis Centrilobular emphysema ([facility]) 10/01/2022 Chronic pain Chronic respiratory failure with hypoxia ([facility]) 05/24/2019 Chronic venous stasis dermatitis COPD (chronic obstructive pulmonary disease) ([facility]) Degenerative disc disease Depression Descending thoracic aortic dissection ([facility]) 12/22/[address] Perry (vascular) Dissection of thoracoabdominal aorta ([facility]) 09/21/2023 Fibromyalgia HTN (hypertension) OA (osteoarthritis) MICHEL (obstructive sleep apnea) not on CPAP Restless leg syndrome Thoracic aortic aneurysm (HCC) 12/23/2018 PAST SURGICAL HISTORY Procedure Laterality Date HYSTERECTOMY HX prolapse non ca, total TONSILLECTOMY HX FAMILY HISTORY Problem Relation Age of Onset other (lymphoma) Mother COPD Father other (bone cancer) Father Ischemic Heart Disease Son 33 Social History Tobacco Use Smoking status: Former Current (more content not included)... [facility] 09-07-2024 History of Present illness Narrative Patient presents with: 6 Month Exam ER F/U HPI: Patient presents today for office visit for follow up. HOSPITAL/ER FOLLOW UP: Reason for visit: abd pain Which facility: [facility] Date of visit: 09/05/24 Diagnosis: abd pain Testing done: CT scan, urine test, lab work. Started after eating taco [place]is. Had some constipation. After she moved her bowels it felt better. No nausea or vomiting. No fever or chills. No urinary issues. Treatment given: no changes were made Current symptoms: on and off has had the pain but not nearly as bad Oxygen at home is 3L/min. Swelling stable. Breathing stable. Daughter feels that Lidiai is helping her more. No chest pain. DM: Can't get lancet to work to check glucose. D Urine culture showed a uti. She was not started on antibiotics yet. Still seeing pulmonary and vascular. We had discussed having her see gi for her anemia and she has declined. Labs showed her chronic anemia. May be in part due to ckd. Cmp was stable. Will not repeat. MEDICATIONS: Current Outpatient Medications Medication Sig oxybutynin XL (DITROPAN XL) 5 mg 24 hr tablet Take 1 tablet by mouth once daily. rOPINIRole (REQUIP) 0.5 mg tablet Take 3 tablets by mouth daily at bedtime. metoprolol succinate ER (TOPROL XL) 50 mg 24 hr tablet Take 1 tablet by mouth once daily. Hold if HR is less than 50 or systolic BP is less than 100 rOPINIRole (REQUIP) 0.5 mg tablet Take 3 tablets by mouth daily at bedtime. oxybutynin XL (DITROPAN XL) 5 mg 24 hr tablet Take 1 tablet by mouth once daily. hydroCHLOROthiazide 12.5 mg capsule Take 2 capsules by mouth once daily. sertraline (ZOLOFT) 50 mg tablet Take 1 tab once a day. Magnesium Oxide 500 mg magnesium tab Take 1 tablet by mouth once daily. jryqywtbep-tvaxdotq-ngjipgeegq (BREZTRI AEROSPHERE) 160-9-4.8 mcg/actuation HFA aerosol inhaler Inhale 2 Puffs as instructed two times a day. gabapentin (NEURONTIN) 100 mg capsule Take 1 capsule by mouth three times a day for 180 days. fluticasone (FLONASE) 50 mcg/actuation nasal spray USE 1 SPRAY IN EACH NOSTRIL ONE TIME DAILY baclofen 10 mg tablet Take 1 tablet by mouth three times a day. albuterol HFA (VENTOLIN HFA) 90 mcg/actuation inhaler Inhale 2 Puffs as instructed every 4 hours as needed for wheezing/shortness of breath. metFORMIN (GLUCOPHAGE) 500 mg tablet Take 1 tablet by mouth daily with breakfast. ferrous sulfate 325 mg (65 mg iron) tablet Take 1 tablet by mouth two times a day with meals. traMADol (ULTRAM) 50 mg tablet Take 50 mg by mouth two times a day. Lancets lancets Test blood sugar(s) 2 times daily. Dx: Type 2 DM - Controlled E11.9 Insulin: No (Patient taking differently: Test blood sugar(s) 2 times daily. Dx: Type 2 DM - Controlled E11.9 Insulin: No Takes blood sugar once daily) blood sugar diagnostic (BLOOD GLUCOSE TEST) test strip Test blood sugar(s) 2 times daily. Dx: Type 2 DM - Controlled E11.9 Insulin: No (Patient taking differently: Test blood sugar(s) 2 times daily. Dx: Type 2 DM - Controlled E11.9 Insulin: No Takes blood sugar once daily) COMPOUNDED PRESCRIPTION Oxygen via nasal canula 2 L N/C DX: copd and hypoxia (Patient taking differently: Oxygen via nasal canula 2 L N/C DX: copd and hypoxia Uses O2 at 3 l/m via NC) COMPOUNDED PRESCRIPTION Lightweight portable oxygen DX: copd, 2 L nc continuously (Patient taking differently: Lightweight portable oxygen DX: copd, 2 L nc continuously Uses at 3 l/m via NC) No current facility-administered medications for this visit. ALLERGIES: ALLERGIES Allergen Reactions Lisinopril Other: See Comments cough Lyrica [Pregabalin] Swelling PAST MEDICAL HISTORY Diagnosis Date AAA (abdominal aortic aneurysm) (HCC) Abdominal aortic aneurysm (AAA) without rupture ([facility]) 09/09/2023 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) 11/05/2023 Aneurysm, thoracic aortic (HCC) Arthritis Centrilobular emphysema ([facility]) 10/01/2022 Chronic pain Chronic respiratory failure with hypoxia ([facility]) 05/24/2019 Chronic venous stasis dermatitis COPD (chronic obstructive pulmonary disease) (HCC) Degenerative disc disease Depression Descending thoracic aortic dissection (HCC) 12/22/[address] 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/2023 Fibromyalgia HTN (hypertension) OA (osteoarthritis) MICHEL (obstructive sleep apnea) not on CPAP Restless leg syndrome Thoracic aortic aneurysm (HCC) 12/23/2018 PAST SURGICAL HISTORY Procedure Laterality Date HYSTERECTOMY HX prolapse non ca, total TONSILLECTOMY HX FAMILY HISTORY Problem Relation Age of Onset other (lymphoma) Mother COPD Father other (bone cancer) Father Ischemic Heart Disease Son 33 Social History Tobacco Use Smoking status: Former Current packs/day: 0.00 Average packs/day: 0.5 packs/day for 45.4 years (22.7 ttl pk-yrs) Types: Cigarettes Start date: 08/30/1966 Quit date: 01/29/2012 Years since quittin.6 Smokeless tobacco: Never Tobacco comments: Father smoked in childhood home. Spouse smoked briefly after marriage. Vaping Use Vaping status: Never Used Substance Use Topics Alcohol use: No Drug use: No Reviewed current medications, allergies, past medical history, surgical history, family history and social history today. REVIEW OF SYSTEMS All other reviewed and negative other than HPI. HEALTH MAINTENANCE: Reviewed health maintenance issues today and recommended the following in detail. Lung Cancer Screening due on 03/29/2023 Advance Directive Discussion due on 06/08/2024 HbA1C due on 09/07/2024 Covid-19 Vaccine() due on 09/07/2024 Urine Albumin:Creatinine Ratio due on 09/07/2024 LDL Cholesterol due on 09/07/2024 Diabetic Foot Exam due on 09/07/2024 VITALS: BP 110/62 Pulse 71 Wt 78.5 kg (173 lb) SpO2 93% BMI 29.70 kg/m Last 4 Encounter Wt Readings: Date: Wt: 03/09/2024 80.7 kg (178 lb) 09/30/2023 84.8 kg (187 lb) 09/30/2023 84.8 kg (187 lb) 09/21/2023 85.7 kg (189 lb) PHYSICAL EXAMINATION: General appearance: Well appearing, alert, in no acute distress, well-hydrated, well nourished. Skin: Skin color, texture, turgor normal, no suspicious rashes or lesions Lungs: Lungs clear to auscultation. No wheezing, rhonchi, rales Heart: RRR without murmur, gallop, or rubs. No ectopy Abdomen: Normal abdominal exam, Abdomen soft, non-tender. Bowel sounds normal. No masses, organomegaly Extremities: No deformities, edema, skin discoloration, clubbing or cyanosis. Good capillary refill. Feet:Shoes and socks removed. Has bilateral bunions with second toe crossed over the great toes bilaterally. Normal sensation and pp's no ulcers. ASSESSMENT/PLAN: 1. Urinary tract infection without hematuria, site unspecified - ICD9: 599.0, ICD10: N39.0 (primary diagnosis) acute Discussed risks and benefits of new medication with the patient. Advised them to call if any side effects or questions. Red flags for re-assessment reviewed with patient in detail. Call if symptoms worsen at all or if not better in one to two weeks Reviewed diagnosis and treatment options in detail. Questions were answered. Patient expressed understanding of treatment plan. NITROFURANTOIN MONOHYDRATE & MACROCRYSTAL 100 MG ORAL CAP 2. Essential hypertension - ICD9: 401.9, ICD10: I10 - Controlled - Continue current medications - LIPID PANEL, NONFASTING - MAGNESIUM 3. Type 2 diabetes mellitus without complication, without long-term current use of insulin (HCC) - ICD9: 250.00, ICD10: E11.9 - stable. - HEMOGLOBIN A1C - ALBUMIN/CREATININE RATIO, URINE 4. Acute constipation - ICD9: 564.00, ICD10: K59.00 -discussed stool softener. 5. Abdominal pain, unspecified abdominal location - ICD9: 789.00, ICD10: R10.9 - call if recurs. 6. Chronic respiratory failure with hypoxia (HCC) - ICD9: 518.83, 799.02, ICD10: J96.11 - stable. Jalyn Smith MD documented in this encounter [facility] 09-04-2024 Radiology Diagnostic study note [facility] Imaging Services [address] [place] [address] Abdomen/Pelvis W IV Cont ONLY MR#: [id number] Acct: [id number] Name: KANDI CORREIA Rep #: [id number] : 1945 F 79 From: Tana Wilson MD PCP: Dr. Jalyn Smith MD Status: REG E R Study:Abdomen/Pelvis W IV Cont ONLY Date of E xam: 09/04/24 Exam# [id number] Ordering Dr: Cynthia Dozier DO PROCEDURE: ABDOMEN/PELVIS W IV CONT ONLY 09/04/2024 REASON FOR EXAM: 79-year-old female, RIGHT ABDOMINAL PAIN TECHNIQUE: Abdomen and pelvis CT with intravenous contrast. Coronal and Sagittal reconstruction series were provided. PATIENT PREPARATION: Per protocol ORAL CONTRAST TYPE: None. CONTRAST: Isovue-300 VOLUME: 100ML One or more dose reduction techniques were used (e.g., Automated exposure control, adjustment of the mA and/or kV according to patient size, use of iterative reconstruction technique. RADIATION DOSE SUMMARY: CTDlvol: 21 mGy DLP: 930 mGycm COMPARISON: CT abdomen pelvis 08/28/2023. FINDINGS: Lung bases: The heart is normal in size with mitral annular calcifications. Incompletely visualized partially calcified descending thoracic aortic aneurysm, exiting into the abdomen. Liver: Mild hepatomegaly without focal mass. The major portal veins are patent. No biliary ductal dilation. Gallbladder: No radiopaque stones within the gallbladder. Spleen: Normal in size. Pancreas: Normal size without evidence of mass surrounding inflammation or ductal dilation. Punctate calcifications within the pancreatic head, unchanged since at least 2018. These do not appear within the pancreatic duct. Adrenals: Unremarkable. Kidneys: Bilateral renal cysts. No hydronephrosis or nephrolithiasis. Bladder: Mildly distended and unremarkable. Reproductive Organs: Prior hysterectomy. Bowel: The bowel loops are normal in caliber. No ascites or pneumoperitoneum. No inflammatory mass in the expected region of the appendix. Lymph nodes: No suspicious lymphadenopathy. Vasculature: No significant change in the thoracic and abdominal aortic aneurysmmeasuring at least 4.2 cm in AP diameter (series 2, image 31), previously measuring 4.4 cm when measured in a similar fashion. the celiac, SMA and SOO arise off the true lumen. Moderate calcific plaque of the celiac trunk at its origin. The false lumen extends into the left common iliac artery and terminates at the bifurcation of the internal and external iliac arteries. Bones: Thoracolumbar spondylosis. CT/Abdomen/Pelvis W IV Cont ONLY IMPRESSION: 1. No acute abdominopelvic finding. 2. Stable lower thoracic and aortoiliac aneurysm as described. Follow-up with outpatient vascular surgery is recommended, with routine outpatient yearly CTA's to evaluate for stability. 3. Mild hepatomegaly. Reading Location: [id number] CC: Dr. Viraj Dozier DO; Dr. Jalyn Smith MD ~ Electrical Engineering Draftsperson: Signed [facility] 2024 Telephone encounter Note Daughter informed. Aurelia Rose MA [facility] 2024 Miscellaneous Notes Daughter informed. Aurelia Rose MA yes Patient's daughter calls and states that patient received the Shingrix and RSV vaccination at [facility]. Pharmacy is recommending patient get a pneumonia and another COVID vaccination. Patient has appointment with pharmacy next Thursday afternoon. Daughter asking if PCP recommends this as well? Please review and advise, Susana Fisher RN documented in this encounter [facility] 2024 Telephone encounter Note yes [facility] 2024 Telephone encounter Note Patient's daughter calls and states that patient received the Shingrix and RSV vaccination at [facility]. Pharmacy is recommending patient get a pneumonia and another COVID vaccination. Patient has appointment with pharmacy next Thursday afternoon. Daughter asking if PCP recommends this as well? Please review and advise, Susana Fisher RN [facility] 08-26-2024 Note HNO ID: [id number] Author: ?, ?, ? Service: ? Author Type: ? Type: Progress Notes Filed: 08/26/2024 12:10 Note Text: POPULATION HEALTH NAVIGATION OUTREACH Action/FYI Patient replied via myc inquiring what a wellness check is, sent mychart to patient Reason for Outreach Returned Call/MyChart Patient Contacted: Spoke to patient/parent/or legal guardian Patient identified by name and date of : Yes Returned call/MyChart actions taken: MyChart message sent Navigation Signature: Juhi Greene August 26, 2024 12:09 PM [facility] 08-25-2024 Note HNO ID: [id number] Author: ?, ?, ? Service: ? Author Type: ? Type: Progress Notes Filed: 08/25/2024 11:45 Note Text: POPULATION HEALTH NAVIGATION OUTREACH Action/FYI Patient is due for Wellness check Reason for Outreach Care Gap/HCC or Scheduling Wellness Visits Care Gaps due: Medicare Annual Wellness Visit Patient Contacted: Unable or unnecessary to reach patient: MyChart message sent HCC related Updated appointment notes Navigation Signature: Juhi Greene August 25, 2024 11:40 AM [facility] 08-25-2024 History of Present illness Narrative POPULATION HEALTH NAVIGATION OUTREACH Action/FYI Patient is due for Wellness check Reason for Outreach Care Gap/HCC or Scheduling Wellness Visits Care Gaps due: Medicare Annual Wellness Visit Patient Contacted: Unable or unnecessary to reach patient: MyChart message sent HCC related Updated appointment notes Navigation Signature: Juhi Greene August 25, 2024 11:40 AM documented in this encounter [facility] 08-25-2024 Note Patient Outreach (NE TNAV) TAYLORKANDI Angelita ([id number]) 1945 F Date Time Provider Department 08/25/24 JALYN SMITH During your visit today, we recorded the following information about you: Juhi Villatoro 08/25/2024 11:45 AM Signed POPULATION HEALTH NAVIGATION OUTREACH Action/FYI Patient is due for Wellness check Reason for Outreach Care Gap/HCC or Scheduling Wellness Visits Care Gaps due: Medicare Annual Wellness Visit Patient Contacted: Unable or unnecessary to reach patient: [email or web address] message sent HCC related Updated appointment notes Navigation Signature: Juhi Greene August 25, 2024 11:40 AM Juhi Villatoro 08/26/2024 12:10 PM Signed POPULATION HEALTH NAVIGATION OUTREACH Action/FYI Patient replied via QWiPS inquiring what a wellness check is, sent mychart to patient Reason for Outreach Returned Call/MyChart Patient Contacted: Spoke to patient/parent/or legal guardian Patient identified by name and date of : Yes Returned call/MyChart actions taken: Sightlogixhart message sent Navigation Signature: Juhi Greene August 26, 2024 12:09 PM Allergies As of Date: 08/25/2024 Noted Allergy Reaction LISINOPRIL 12/26/2016 14 - Other: See Comments Comments: cough LYRICA (PREGABALIN) 01/13/2019 7 - Swelling Date Reviewed: 01/06/2024 Reviewed by: Staci Zamorano LPN - Fully Assessed Reason for Visit: Population Health Navigation Outreach [3910] Cmt: Ann Work bench [place] Prescriptions as of 08/26/2024 - oxybutynin XL (DITROPAN XL) 5 mg 24 hr tablet Take 1 tablet by mouth once daily. - rOPINIRole (REQUIP) 0.5 mg tablet Take 3 tablets by mouth daily at bedtime. - metoprolol succinate ER (TOPROL XL) 50 mg 24 hr tablet Take 1 tablet by mouth once daily. Hold if HR is less than 50 or systolic BP is less than 100 - rOPINIRole (REQUIP) 0.5 mg tablet Take 3 tablets by mouth daily at bedtime. - oxybutynin XL (DITROPAN XL) 5 mg 24 hr tablet Take 1 tablet by mouth once daily. - hydroCHLOROthiazide 12.5 mg capsule Take 2 capsules by mouth once daily. - sertraline (ZOLOFT) 50 mg tablet Take 1 tab once a day. - Magnesium Oxide 500 mg magnesium tab Take 1 tablet by mouth once daily. - lpwzqvrdre-frfarner-cifzatszgp (BREZTRI AEROSPHERE) 160-9-4.8 mcg/actuation HFA aerosol inhaler Inhale 2 Puffs as instructed two times a day. - gabapentin (NEURONTIN) 100 mg capsule Take 1 capsule by mouth three times a day for 180 days. - fluticasone (FLONASE) 50 mcg/actuation nasal spray USE 1 SPRAY IN EACH NOSTRIL ONE TIME DAILY - baclofen 10 mg tablet Take 1 tablet by mouth three times a day. - albuterol HFA (VENTOLIN HFA) 90 mcg/actuation inhaler Inhale 2 Puffs as instructed every 4 hours as needed for wheezing/shortness of breath. - metFORMIN (GLUCOPHAGE) 500 mg tablet Take 1 tablet by mouth daily with breakfast. - ferrous sulfate 325 mg (65 mg iron) tablet Take 1 tablet by mouth two times a day with meals. - traMADol (ULTRAM) 50 mg tablet Take 50 mg by mouth two times a day. - Lancets lancets Test blood sugar(s) 2 times daily. Dx: Type 2 DM - Controlled E11.9 Insulin: No - blood sugar diagnostic (BLOOD GLUCOSE TEST) test strip Test blood sugar(s) 2 times daily. 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.89] 08/16/2020 Pain, neck [M54.2] 03/31/2016 08/20/2016 Acute midline thoracic back pain [M54.6] 03/31/2016 08/20/2016 Recurrent major depression in partial remission*07/16/2016 Essential hypertension [I10] 07/25/2016 HTN (hypertension) [I10] 08/20/2016 Class 2 obesity with body mass index (BMI) of 3*06/17/2017 03/09/2024 Obesity, Class II, BMI 35-39.9 [E66.812] 12/02/2017 04/02/2018 On home oxygen therapy [Z99.81] 04/02/2018 Type 2 diabetes mellitus without complication, *05/13/2018 Thoracic aortic aneurysm (HCC) [I71.20] 12/23/2018 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 [facility] 08-03-2024 Telephone encounter Note Prescription Refill Information The patient has been identified by name and date of : Yes Caregiver verified no other encounters exist for this prescription request: Yes Caregiver confirmed with patient/requestor that no other refills are due, in the near future, with this provider at this time: Yes The last office visit in the department: 03/09/24 Does the patient have a future office visit with this provider/department: Yes, 09/07/24 Requested Prescriptions Pending Prescriptions Disp Refills metoprolol succinate ER (TOPROL XL) 50 mg 24 hr tablet 30 tablet 5 Sig: Take 1 tablet by mouth once daily. Hold if HR is less than 50 or systolic BP is less than 100 rOPINIRole (REQUIP) 0.5 mg tablet 270 tablet 1 Sig: Take 3 tablets by mouth daily at bedtime. oxybutynin XL (DITROPAN XL) 5 mg 24 hr tablet 90 tablet 1 Sig: Take 1 tablet by mouth once daily. gabapentin (NEURONTIN) 100 mg capsule 270 capsule 1 Sig: Take 1 capsule by mouth three times a day for 180 days. sertraline (ZOLOFT) 50 mg tablet 90 tablet 1 Sig: Take 1 tab once a day. Sertraline 50mg #90 with 1 refill sent to [facility] on 06/09/24. Pt not due for refill. MC message to pt advising of the same. Gabapentin 100mg #270 with 1 refill sent to [facility] on 05/17/24. Pt not due for refill. MC message to pt advising of the same. Aj Hermosillo LPN August 03, 2024 2:58 PM [facility] 08-03-2024 Miscellaneous Notes Prescription Refill Information The patient has been identified by name and date of : Yes Caregiver verified no other encounters exist for this prescription request: Yes Caregiver confirmed with patient/requestor that no other refills are due, in the near future, with this provider at this time: Yes The last office visit in the department: 03/09/24 Does the patient have a future office visit with this provider/department: Yes, 09/07/24 Requested Prescriptions Pending Prescriptions Disp Refills metoprolol succinate ER (TOPROL XL) 50 mg 24 hr tablet 30 tablet 5 Sig: Take 1 tablet by mouth once daily. Hold if HR is less than 50 or systolic BP is less than 100 rOPINIRole (REQUIP) 0.5 mg tablet 270 tablet 1 Sig: Take 3 tablets by mouth daily at bedtime. oxybutynin XL (DITROPAN XL) 5 mg 24 hr tablet 90 tablet 1 Sig: Take 1 tablet by mouth once daily. gabapentin (NEURONTIN) 100 mg capsule 270 capsule 1 Sig: Take 1 capsule by mouth three times a day for 180 days. sertraline (ZOLOFT) 50 mg tablet 90 tablet 1 Sig: Take 1 tab once a day. Sertraline 50mg #90 with 1 refill sent to [facility] on 06/09/24. Pt not due for refill. MC message to pt advising of the same. Gabapentin 100mg #270 with 1 refill sent to [facility] on 05/17/24. Pt not due for refill. MC message to pt advising of the same. Aj Hermosillo LPN August 03, 2024 2:58 PM documented in this encounter [facility] 06-09-2024 Telephone encounter Note Prescription Refill Information The patient has been identified by name and date of : Yes Caregiver verified no other encounters exist for this prescription request: Yes Caregiver confirmed with patient/requestor that no other refills are due, in the near future, with this provider at this time: Yes The last office visit in the department: 03/09/24 Does the patient have a future office visit with this provider/department: Yes 09/07/24 Requested Prescriptions Pending Prescriptions Disp Refills hydroCHLOROthiazide 12.5 mg capsule 180 capsule 1 Sig: Take 2 capsules by mouth once daily. sertraline (ZOLOFT) 50 mg tablet 90 tablet 1 Sig: Take 1 tab once a day. Magnesium Oxide 500 mg magnesium tab Sig: Take 1 tablet by mouth once daily. Kristina Holloway LPN June 09, 2024 11:45 AM [facility] 06-09-2024 Miscellaneous Notes Prescription Refill Information The patient has been identified by name and date of : Yes Caregiver verified no other encounters exist for this prescription request: Yes Caregiver confirmed with patient/requestor that no other refills are due, in the near future, with this provider at this time: Yes The last office visit in the department: 03/09/24 Does the patient have a future office visit with this provider/department: Yes 09/07/24 Requested Prescriptions Pending Prescriptions Disp Refills hydroCHLOROthiazide 12.5 mg capsule 180 capsule 1 Sig: Take 2 capsules by mouth once daily. sertraline (ZOLOFT) 50 mg tablet 90 tablet 1 Sig: Take 1 tab once a day. Magnesium Oxide 500 mg magnesium tab Sig: Take 1 tablet by mouth once daily. Kristina Holloway LPN June 09, 2024 11:45 AM documented in this encounter [facility] 05-17-2024 Telephone encounter Note Prescription Refill Information The patient has been identified by name and date of : Yes Caregiver verified no other encounters exist for this prescription request: Yes Caregiver confirmed with patient/requestor that no other refills are due, in the near future, with this provider at this time: Yes The last office visit in the department: 03/09/24 Does the patient have a future office visit with this provider/department: Yes, 09/07/24 Requested Prescriptions Pending Prescriptions Disp Refills gabapentin (NEURONTIN) 100 mg capsule 270 capsule 3 Sig: Take 1 capsule by mouth three times a day for 180 days. Aj Hermosillo LPN May 17, 2024 11:24 AM [facility] 05-17-2024 Miscellaneous Notes Prescription Refill Information The patient has been identified by name and date of : Yes Caregiver verified no other encounters exist for this prescription request: Yes Caregiver confirmed with patient/requestor that no other refills are due, in the near future, with this provider at this time: Yes The last office visit in the department: 03/09/24 Does the patient have a future office visit with this provider/department: Yes, 09/07/24 Requested Prescriptions Pending Prescriptions Disp Refills gabapentin (NEURONTIN) 100 mg capsule 270 capsule 3 Sig: Take 1 capsule by mouth three times a day for 180 days. Aj Hermosillo LPN May 17, 2024 11:24 AM documented in this encounter [facility] 05-17-2024 Telephone encounter Note [facility] 01/06/24 Patient phones requesting refills as follows: Requested Prescriptions Pending Prescriptions Disp Refills tlpvsetfyp-qsorhxvx-gngqouvztp (BREZTRI AEROSPHERE) 160-9-4.8 mcg/actuation HFA aerosol inhaler [Pharmacy Med Name: BREZTRI AEROSPHERE INHALER] 32.1 g 3 Sig: Inhale 2 Puffs as instructed two times a day. Please review and advise. Staci Zamorano LPN [facility] 05-17-2024 Miscellaneous Notes [facility] 01/06/24 Patient phones requesting refills as follows: Requested Prescriptions Pending Prescriptions Disp Refills sttotzrkjs-wsihlhcs-dthgepllav (BREZTRI AEROSPHERE) 160-9-4.8 mcg/actuation HFA aerosol inhaler [Pharmacy Med Name: BREZTRI AEROSPHERE INHALER] 32.1 g 3 Sig: Inhale 2 Puffs as instructed two times a day. Please review and advise. Staci Zamorano LPN documented in this encounter [facility] 04-28-2024 Note HNO ID: [id number] Author: SELENE ANAYA RN Service: ? Author Type: Registered Nurse Type: Progress Notes Filed: 04/28/2024 15:59 Note Text: [facility] Telephonic Outreach Provider Action/FYI Contacted for: Routine Telephonic Outreach Contact made with patient: No, left message. Selene Anaya RN April 28, 2024 3:58 PM [facility] 04-28-2024 History of Present illness Narrative [facility] Telephonic Outreach Provider Action/FYI Contacted for: Routine Telephonic Outreach Contact made with patient: No, left message. Selene Anaya RN April 28, 2024 3:58 PM [facility] Telephonic Outreach Provider Action/FYI Contacted for: Routine Telephonic Outreach Contact made with patient: No, left message. Selene Anaya RN April 28, 2024 3:20 PM documented in this encounter [facility] 04-28-2024 Note HNO ID: [id number] Author: SELENE ANAYA RN Service: ? Author Type: Registered Nurse Type: Progress Notes Filed: 04/28/2024 15:20 Note Text: [facility] Telephonic Outreach Provider Action/FYI Contacted for: Routine Telephonic Outreach Contact made with patient: No, left message. Selene Anaya RN April 28, 2024 3:20 PM [facility] 04-28-2024 Note Patient Outreach (AM [facility]) KANDI CORREIA ([id number]) 1945 F Date Time Provider Department 04/28/24 SELENE ANAYA [facility] During your visit today, we recorded the following information about you: Selene Anaya RN 04/28/2024 3:20 PM Signed [facility] Telephonic Outreach Provider Action/FYI Contacted for: Routine Telephonic Outreach Contact made with patient: No, left message. Selene Anaya RN April 28, 2024 3:20 PM Selene Anaya RN 04/28/2024 3:59 PM Signed CD Telephonic Outreach Provider Action/FYI Contacted for: Routine Telephonic Outreach Contact made with patient: No, left message. Selene Anaya RN April 28, 2024 3:58 PM Allergies As of Date: 04/28/2024 Noted Allergy Reaction LISINOPRIL 12/26/2016 14 - Other: See Comments Comments: cough LYRICA (PREGABALIN) 01/13/2019 7 - Swelling Date Reviewed: 01/06/2024 Reviewed by: Staci Zamorano LPN - Fully Assessed Reason for Visit: community monitoring [Other] Cmt: CDM telephonic Prescriptions as of 05/15/2024 - fluticasone (FLONASE) 50 mcg/actuation nasal spray USE 1 SPRAY IN EACH NOSTRIL ONE TIME DAILY - Magnesium Oxide 500 mg magnesium tab Take 1 tablet by mouth once daily. - baclofen 10 mg tablet Take 1 tablet by mouth three times a day. - oxybutynin XL (DITROPAN XL) 5 mg 24 hr tablet Take 1 tablet by mouth once daily. - rOPINIRole (REQUIP) 0.5 mg tablet Take 3 tablets by mouth daily at bedtime. - shfncdcivu-gxbbrjhg-srjegfzjfv (BREZTRI) 160-9-4.8 mcg/actuation HFA aerosol inhaler Inhale 2 Puffs as instructed two times a day. - albuterol HFA (VENTOLIN HFA) 90 mcg/actuation inhaler Inhale 2 Puffs as instructed every 4 hours as needed for wheezing/shortness of breath. - metFORMIN (GLUCOPHAGE) 500 mg tablet Take 1 tablet by mouth daily with breakfast. - gabapentin (NEURONTIN) 100 mg capsule Take 1 capsule by mouth three times a day for 180 days. - ferrous sulfate 325 mg (65 mg iron) tablet Take 1 tablet by mouth two times a day with meals. - hydroCHLOROthiazide 12.5 mg capsule Take 2 capsules by mouth once daily. - sertraline (ZOLOFT) 50 mg tablet Take 1 tab once a day. - traMADol (ULTRAM) 50 mg tablet Take 50 mg by mouth two times a day. - metoprolol succinate ER (TOPROL XL) 50 mg 24 hr tablet Take 1 tablet by mouth once daily. Hold if HR is less than 50 or systolic BP is less than 100 - Lancets lancets Test blood sugar(s) 2 times daily. Dx: Type 2 DM - Controlled E11.9 Insulin: No - blood sugar diagnostic (BLOOD GLUCOSE TEST) test strip Test blood sugar(s) 2 times daily. 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] 08/16/2020 Pain, neck [M54.2] 03/31/2016 08/20/2016 Acute midline thoracic back pain [M54.6] 03/31/2016 08/20/2016 Recurrent major depression in partial remission*07/16/2016 Essential hypertension [I10] 07/25/2016 HTN (hypertension) [I10] 08/20/2016 Class 2 obesity with body mass index (BMI) of 3*06/17/2017 03/09/2024 Obesity, Class II, BMI 35-39.9 [E66.812] 12/02/2017 04/02/2018 On home oxygen therapy [Z99.81] 04/02/2018 Type 2 diabetes mellitus without complication, *05/13/2018 Thoracic aortic aneurysm (HCC) [I71.20] 12/23/2018 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] 12/30/2018 09/21/2023 Skin ulcer (HCC) [L98.499] 02/09/2019 08/16/2020 MICHEL (obstructive sleep apnea) [G47.33] 05/24/2019 Chronic respiratory failure with hypoxia (HCC) *05/24/2019 Centrilobular emphysema (HCC) [J43.2] 10/01/2022 Obesity, Class III, BMI 40-49.9 (morbid obesity*08/17/2021 10/01/2022 NYHA class 2 and ACC/AHA stage C acute on chron*12/10/2022 Abdominal aortic aneurysm (AAA) without rupture*09/09/2023 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 Judy Borrego LPN [facility] 04-14-2024 Miscellaneous Notes Pt notified thru MyChart to continue Magnesium. Judy Borrego LPN Pt notified with results and would like to know if she is to continue to take (1) magnesium daily. This is what she was instructed to do earlier. Please advise pt. .Judy Borrego LPN ----- Message from Casandra Kinsey sent at 04/14/2024 12:42 PM EST ----- Anemia persists but is stable. Magnesium is ok. documented in this encounter [facility] 04-14-2024 Telephone encounter Note Pt notified with results and would like to know if she is to continue to take (1) magnesium daily. This is what she was instructed to do earlier. Please advise pt. .Judy Borrego LPN [facility] 04-14-2024 Telephone encounter Note ----- Message from Casandra Kinsey sent at 04/14/2024 12:42 PM EST ----- Anemia persists but is stable. Magnesium is ok. [facility] 04-11-2024 Telephone encounter Note Last appointment: 09/30/23 Next appointment: 07/02/24 Pharmacy verified in Epic. Refill(s) requested: Requested Prescriptions Pending Prescriptions Disp Refills fluticasone (FLONASE) 50 mcg/actuation nasal spray [Pharmacy Med Name: Fluticasone Propionate Nasal Suspension 50 MCG/ACT] 32 g 3 Sig: USE 1 SPRAY IN EACH NOSTRIL ONE TIME DAILY Order(s) pended. Please advise. Vera Pollock MA, QA LEAD [facility] 04-11-2024 Miscellaneous Notes Last appointment: 09/30/23 Next appointment: 07/02/24 Pharmacy verified in Epic. Refill(s) requested: Requested Prescriptions Pending Prescriptions Disp Refills fluticasone (FLONASE) 50 mcg/actuation nasal spray [Pharmacy Med Name: Fluticasone Propionate Nasal Suspension 50 MCG/ACT] 32 g 3 Sig: USE 1 SPRAY IN EACH NOSTRIL ONE TIME DAILY Order(s) pended. Please advise. Vera Pollock MA, QA LEAD documented in this encounter [facility] 03-31-2024 Note HNO ID: [id number] Author: SELENE ANAYA RN Service: ? Author Type: Registered Nurse Type: Progress Notes Filed: 03/31/2024 15:17 Note Text: [facility] Telephonic Outreach Provider Action/FYI Contacted for: Routine Telephonic Outreach Contact made with patient: No, left message. Selene Anaya RN March 31, 2024 3:16 PM [facility] 03-31-2024 History of Present illness Narrative [facility] Telephonic Outreach Provider Action/FYI Contacted for: Routine Telephonic Outreach Contact made with patient: No, left message. Selene Anaya RN March 31, 2024 3:16 PM [facility] Telephonic Outreach Provider Action/FYI Contacted for: Routine Telephonic Outreach Contact made with patient: No, left message. Selene Anaya RN March 31, 2024 1:31 PM documented in this encounter [facility] 03-31-2024 Note HNO ID: [id number] Author: SELENE ANAYA RN Service: ? Author Type: Registered Nurse Type: Progress Notes Filed: 03/31/2024 13:32 Note Text: CD Telephonic Outreach Provider Action/FYI Contacted for: Routine Telephonic Outreach Contact made with patient: No, left message. Selene Anaya RN March 31, 2024 1:31 PM [facility] 03-31-2024 Note Patient Out[place] [facility] [place] KANDI CORREIA ([id number]) 1945 F Date Time Provider Department 03/31/24 [place]ELENE ANAYA [facility] [place] visit today, we recorded the following information about you: Selene Anaya RN 03/31/2024 1:32 PM Signed CD Telephonic Outreach Provider Action/FYI Contacted for: Routine Telephonic Outreach Contact made with patient: No, left message. Selene Anaya RN March 31, 2024 1:31 PM Selene Anaya RN 03/31/2024 3:17 PM Signed CD Telephonic Outreach Provider Action/FYI Contacted for: Routine Telephonic Outreach Contact made with patient: No, left message. Selene Anaya RN March 31, 2024 3:16 PM Allergies As of Date: 03/31/2024 Noted Allergy Reaction LISINOPRIL 12/26/2016 14 - Other: See Comments Comments: cough LYRICA (PREGABALIN) 01/13/2019 7 - Swelling Date Reviewed: 01/06/2024 Reviewed by: Staci Zamorano LPN - Fully Assessed Reason for Visit: community monitoring [Other] Cmt: CDM telephonic Prescriptions as of 03/31/2024 - Magnesium Oxide 500 mg magnesium tab Take 1 tablet by mouth once daily. - baclofen 10 mg tablet Take 1 tablet by mouth three times a day. - oxybutynin XL (DITROPAN XL) 5 mg 24 hr tablet Take 1 tablet by mouth once daily. - rOPINIRole (REQUIP) 0.5 mg tablet Take 3 tablets by mouth daily at bedtime. - rkeilqcskr-iutmzqin-ffoaopzdus (BREZTRI) 160-9-4.8 mcg/actuation HFA aerosol inhaler Inhale 2 Puffs as instructed two times a day. - albuterol HFA (VENTOLIN HFA) 90 mcg/actuation inhaler Inhale 2 Puffs as instructed every 4 hours as needed for wheezing/shortness of breath. - metFORMIN (GLUCOPHAGE) 500 mg tablet Take 1 tablet by mouth daily with breakfast. - gabapentin (NEURONTIN) 100 mg capsule Take 1 capsule by mouth three times a day for 180 days. - ferrous sulfate 325 mg (65 mg iron) tablet Take 1 tablet by mouth two times a day with meals. - hydroCHLOROthiazide 12.5 mg capsule Take 2 capsules by mouth once daily. - sertraline (ZOLOFT) 50 mg tablet Take 1 tab once a day. - traMADol (ULTRAM) 50 mg tablet Take 50 mg by mouth two times a day. - metoprolol succinate ER (TOPROL XL) 50 mg 24 hr tablet Take 1 tablet by mouth once daily. Hold if HR is less than 50 or systolic BP is less than 100 - fluticasone (FLONASE) 50 mcg/actuation nasal spray USE 1 SPRAY IN EACH NOSTRIL ONCE DAILY - Lancets lancets Test blood sugar(s) 2 times daily. Dx: Type 2 DM - Controlled E11.9 Insulin: No - blood sugar diagnostic (BLOOD GLUCOSE TEST) test strip Test blood sugar(s) 2 times daily. Dx: Type 2 DM - Controlled E11.9 Insulin: No - COMPOUNDED PRESCRIPTION Oxygen via nasal canula 2 L N/C DX: copd and hypoxia - COMPOUNDED PRESCRIPTION Lightweight portable oxygen DX: copd, 2 L nc continuously Meds Comments as of 12/31/2018: 12/31/18 The medications are managed by this patient by: PATIENT Maria Alejandra Nolan (Bike Assembler) Problem List As Of Date 03/31/2024 Noted Resolved DDD (degenerative disc disease), lumbar [M51.36*01/28/2013 Backache, unspecified [M54.9] 03/14/2013 08/20/2016 COPD with chronic bronchitis (HCC) [J44.89] 08/16/2020 Pain, neck [M54.2] 03/31/2016 08/20/2016 Acute midline thoracic back pain [M54.6] 03/31/2016 08/20/2016 Recurrent major depression in partial remission*07/16/2016 Essential hypertension [I10] 07/25/2016 HTN (hypertension) [I10] 08/20/2016 Class 2 obesity with body mass index (BMI) of 3*06/17/2017 03/09/2024 Obesity, Class II, BMI 35-39.9 [E66.812] 12/02/2017 04/02/2018 On home oxygen therapy [Z99.81] 04/02/2018 Type 2 diabetes mellitus without complication, *05/13/2018 Thoracic aortic aneurysm (HCC) [I71.20] 12/23/2018 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] 12/30/2018 09/21/2023 Skin ulcer (HCC) [L98.499] 02/09/2019 08/16/2020 MICHEL (obstructive sleep apnea) [G47.33] 05/24/2019 Chronic respiratory failure with hypoxia (HCC) *05/24/2019 Centrilobular emphysema (HCC) [J43.2] 10/01/2022 Obesity, Class III, BMI 40-49.9 (morbid obesity*08/17/2021 10/01/2022 NYHA class 2 and ACC/AHA stage C acute on chron*12/10/2022 Abdominal aortic aneurysm (AAA) without rupture*09/09/2023 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 Does she need portable concentrator or tank. Is POC to be continuous? If portable will need the dose. Also need order for stationary tank [facility] 03-29-2024 Miscellaneous Notes Kandi from [facility] calling and needs clarification for oxygen. Does she need portable concentrator or tank. Is POC to be continuous? If portable will need the dose. Also need order for stationary tank documented in this encounter [facility] 03-11-2024 Telephone encounter Note Spoke with patient and daughter was in background. They both don't feel the GI consult is necessary. Daughter states patient was already worked up in the hospital for this issue. Patient states she no longer has blood in her stool and doesn't think this is an issue. I explained the need to still follow up with GI for eval and she declined. Advised to take her magnesium once daily and check labs in 1 month. She agreed and verbalized understanding. Aurelia Rose MA [facility] 03-11-2024 Miscellaneous Notes Spoke with patient and daughter was in background. They both don't feel the GI consult is necessary. Daughter states patient was already worked up in the hospital for this issue. Patient states she no longer has blood in her stool and doesn't think this is an issue. I explained the need to still follow up with GI for eval and she declined. Advised to take her magnesium once daily and check labs in 1 month. She agreed and verbalized understanding. Aurelia Rose MA No, still needed gi follow up. Appt was made and no showed Reset up Take mag once a day. Recheck labs in one month Has some there at the house hasn't taken any lately. Magnesium 500 mg she could take daily if needed? Was in the hospital for a month and monitored for the anemia. They had monitored her and decided not to do any scopes when they had her in the hospital because she had no more signs of any bleeding. No blood or dark stools. Daughters and patient thought she was good to go since hospitalization from the bleeding that she had? Mag is slightly low. Check if taking any mag supplements? Also anemia is stable. Iron is ok. She was referred to gi last year for anemia and blood in the stool. Does not appear she went. Is she willing to see them to rule out gi source of anemia? Can reschedule. documented in this encounter [facility] 03-11-2024 Telephone encounter Note No, still needed gi follow up. Appt was made and no showed Reset up Take mag once a day. Recheck labs in one month [facility] 03-11-2024 Telephone encounter Note Has some there at the house hasn't taken any lately. Magnesium 500 mg she could take daily if needed? Was in the hospital for a month and monitored for the anemia. They had monitored her and decided not to do any scopes when they had her in the hospital because she had no more signs of any bleeding. No blood or dark stools. Daughters and patient thought she was good to go since hospitalization from the bleeding that she had? [facility] 03-11-2024 Telephone encounter Note Mag is slightly low. Check if taking any mag supplements? Also anemia is stable. Iron is ok. She was referred to gi last year for anemia and blood in the stool. Does not appear she went. Is she willing to see them to rule out gi source of anemia? Can reschedule. T [facility] 03-09-2024 History of Present illness Narrative Patient presents with: 6 Month Exam HPI: Patient presents today for office visit for follow up. DM: Reports overall feeling well. Medication side effects: No. Home sugar check frequency/results:daily but not as often anymore Hypoglycemic spells: No. Watching diet: Yes. Unexpected weight loss: No. Polyuria, polydipsia: No. Vision Changes: No. Foot lesions or numbness or pain: No. Wearing oxygen on 3 L/min at home. Will decrease to 2 L/min when out to conserve tank. No new swelling, No chest pain Breathing is stable. Seeing pulmonary and vascular. Has not see optho yet. CTAs are next year. Her back is stable. Shoulders and knees are now worse. She is trying to eat less and lose weight. RLS is stable. Note was copied and pasted, without alteration from:last ov: Reason for visit: Abdominal pain Which facility: [facility] Date of visit: 08/28/23 Diagnosis: Pneumonia Testing done: CT abd/pelvis, Labs Treatment given: Levofloxacin 500 mg daily for 7 days Current symptoms: Still coughing some with some discomfort in left upper back. Breathing is a lot better. States it does not hurt to take deep breaths anymore. Feels much better. Minimal discomfort when coughing but much better. Has been using mucinex. Denies wheezing. Metoprolol decreased to 50 mg daily. To hold if HR is less than 50 of systolic BP is less than 100. Has not been monitoring her BP at home. Does have home cuff. Ct of abd done that showed bibasilar consolidation and mild leukocytosis of 12,000. Breathing is at baseline. No fever or chills. Sees Pulmonary in October. No abd pain or bowel changes. MEDICATIONS: Current Outpatient Medications Medication Sig baclofen 10 mg tablet Take 1 tablet by mouth three times a day. oxybutynin XL (DITROPAN XL) 5 mg 24 hr tablet Take 1 tablet by mouth once daily. rOPINIRole (REQUIP) 0.5 mg tablet Take 3 tablets by mouth daily at bedtime. neijqaglaa-dkpmiyzy-aahagpozqs (BREZTRI) 160-9-4.8 mcg/actuation HFA aerosol inhaler Inhale 2 Puffs as instructed two times a day. albuterol HFA (VENTOLIN HFA) 90 mcg/actuation inhaler Inhale 2 Puffs as instructed every 4 hours as needed for wheezing/shortness of breath. metFORMIN (GLUCOPHAGE) 500 mg tablet Take 1 tablet by mouth daily with breakfast. iv contrast (will be provided with radiology test) CTA CHST/ABD/PEL. No IV access, insert saline lock prior to the sedation, infusion, injection for imaging exam. Discontinue saline lock post exam. If Pt. has a central line or IVAD, may access for administration according to line specific nursing protocol. Once exam is complete flush line and de-access according to line specific nursing protocol in the CT contrast administration guidelines link. gabapentin (NEURONTIN) 100 mg capsule Take 1 capsule by mouth three times a day for 180 days. ferrous sulfate 325 mg (65 mg iron) tablet Take 1 tablet by mouth two times a day with meals. hydroCHLOROthiazide 12.5 mg capsule Take 2 capsules by mouth once daily. sertraline (ZOLOFT) 50 mg tablet Take 1 tab once a day. traMADol (ULTRAM) 50 mg tablet Take 50 mg by mouth two times a day. metoprolol succinate ER (TOPROL XL) 50 mg 24 hr tablet Take 1 tablet by mouth once daily. Hold if HR is less than 50 or systolic BP is less than 100 fluticasone (FLONASE) 50 mcg/actuation nasal spray USE 1 SPRAY IN EACH NOSTRIL ONCE DAILY Lancets lancets Test blood sugar(s) 2 times daily. Dx: Type 2 DM - Controlled E11.9 Insulin: No (Patient taking differently: Test blood sugar(s) 2 times daily. Dx: Type 2 DM - Controlled E11.9 Insulin: No Takes blood sugar once daily) blood sugar diagnostic (BLOOD GLUCOSE TEST) test strip Test blood sugar(s) 2 times daily. Dx: Type 2 DM - Controlled E11.9 Insulin: No (Patient taking differently: Test blood sugar(s) 2 times daily. Dx: Type 2 DM - Controlled E11.9 Insulin: No Takes blood sugar once daily) COMPOUNDED PRESCRIPTION Oxygen via nasal canula 2 L N/C DX: copd and hypoxia (Patient taking differently: Oxygen via nasal canula 2 L N/C DX: copd and hypoxia Uses O2 at 3 l/m via NC) COMPOUNDED PRESCRIPTION Lightweight portable oxygen DX: copd, 2 L nc continuously (Patient taking differently: Lightweight portable oxygen DX: copd, 2 L nc continuously Uses at 3 l/m via NC) No current facility-administered medications for this visit. ALLERGIES: ALLERGIES Allergen Reactions Lisinopril Other: See Comments cough Lyrica [Pregabalin] Swelling PAST MEDICAL HISTORY Diagnosis Date AAA (abdominal aortic aneurysm) ([facility]) Abdominal aortic aneurysm (AAA) without rupture ([facility]) 09/09/2023 Aneurysm of left common iliac artery ([facility]) 11/05/2023 Aneurysm, thoracic aortic ([facility]) Arthritis Centrilobular emphysema ([facility]) 10/01/2022 Chronic pain Chronic respiratory failure with hypoxia ([facility]) 05/24/2019 Chronic venous stasis dermatitis COPD (chronic obstructive pulmonary disease) ([facility]) Degenerative disc disease Depression Descending thoracic aortic dissection ([facility]) 12/22/[address] Perry (vascular) Dissection of thoracoabdominal aorta ([facility]) 09/21/2023 Fibromyalgia HTN (hypertension) OA (osteoarthritis) MICHEL (obstructive sleep apnea) not on CPAP Restless leg syndrome Thoracic aortic aneurysm ([facility]) 12/23/2018 PAST SURGICAL HISTORY Procedure Laterality Date HYSTERECTOMY HX prolapse non ca, total TONSILLECTOMY HX FAMILY HISTORY Problem Relation Age of Onset other (lymphoma) Mother COPD Father other (bone cancer) Father Ischemic Heart Disease Son 33 Social History Tobacco Use Smoking status: Former Current packs/day: 0.00 Average packs/day: 0.5 packs/day for 45.4 years (22.7 ttl pk-yrs) Types: Cigarettes Start date: 08/30/1966 Quit date: 01/29/2012 Years since quittin.1 Smokeless tobacco: Never Tobacco comments: Father smoked in childhood home. Spouse smoked briefly after marriage. Vaping Use Vaping status: Never Used Substance Use Topics Alcohol use: No Drug use: No Reviewed current medications, allergies, past medical history, surgical history, family history and social history today. REVIEW OF SYSTEMS No gi issues. All other reviewed and negative other than HPI. HEALTH MAINTENANCE: Reviewed health maintenance issues today and recommended the following in detail. Anxiety Screening Never done BP Controlled (<130/80) Never done Shingrix Vaccine(1 of 2) Never done Lung Cancer Screening due on 03/29/2023 Dilated Retinal Exam due on 04/18/2023 Advance Directive Discussion due on 06/08/2023 Influenza Vaccine(1) due on 02/07/2024 Covid-19 Vaccine( season) due on 02/07/2024 HbA1C due on 03/09/2024 VITALS: BP 118/70 Pulse 77 Wt 80.7 kg (178 lb) SpO2 99% BMI 30.55 kg/m Last 4 Encounter Wt Readings: Date: Wt: 03/09/2024 80.7 kg (178 lb) 09/30/2023 84.8 kg (187 lb) 09/30/2023 84.8 kg (187 lb) 09/21/2023 85.7 kg (189 lb) PHYSICAL EXAMINATION: General appearance: Well appearing, alert, in no acute distress, well-hydrated, well nourished. and Wheelchair Skin: Skin color, texture, turgor normal, no suspicious rashes or lesions Head: Normocephalic, no masses, lesions, tenderness or abnormalities Lungs: Lungs clear to auscultation. No wheezing, rhonchi, rales Heart: RRR without murmur, gallop, or rubs. No ectopy Abdomen: Normal abdominal exam, Abdomen soft, non-tender. Bowel sounds normal. No masses, organomegaly Extremities: No deformities, edema, skin discoloration, clubbing or cyanosis. Good capillary refill. ASSESSMENT/PLAN: 1. Essential hypertension - ICD9: 401.9, ICD10: I10 (primary diagnosis) - Controlled - Continue current medications 2. Encounter for immunization - ICD9: V03.89, ICD10: Z23 - INFLUENZA VACCINE, PRSV FREE, AGE 65+ YR, HIGH DOSE, TRIVALENT (FLUZONE HIGH-DOSE) - Clear Standards COVID-19 VACCINE AGE 12+ YR (COMIRNATY) 3. Thoracic aortic aneurysm without rupture, unspecified part (HCC) - ICD9: 441.2, ICD10: I71.20 - per vascular stable. 4. NYHA class 2 and ACC/AHA stage C acute on chronic systolic congestive heart failure (HCC) - ICD9: 428.23, 428.0, ICD10: I50.23 - stable. 5. Abdominal aortic aneurysm (AAA) without rupture, unspecified part (HCC) - ICD9: 441.4, ICD10: I71.40 - per vascular. 6. 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 7. Dissection of thoracoabdominal aorta (HCC) - ICD9: 441.03, ICD10: I71.03 -stable. 8. MICHEL (obstructive sleep apnea) - ICD9: 327.23, ICD10: G47.33 - stable. 9. Chronic respiratory failure with hypoxia (HCC) - ICD9: 518.83, 799.02, ICD10: J96.11 - stable 10. On home oxygen therapy - ICD9: V46.2, ICD10: Z99.81 - continue tx. 11. Centrilobular emphysema (HCC) - ICD9: 492.8, ICD10: J43.2 - is stable. 12. Type 2 diabetes mellitus without complication, without long-term current use of insulin (HCC) - ICD9: 250.00, ICD10: E11.9 - Controlled - Continue current medications - HEMOGLOBIN A1C 13. Recurrent major depression in partial remission (HCC) - ICD9: 296.35, ICD10: F33.41 - doing well. 14. Degeneration of intervertebral disc of lumbar region, unspecified whether pain present - ICD9: 722.52, ICD10: M51.369 - no current new complaints. 15. Class 1 obesity with body mass index (BMI) of 30.0 to 30.9 in adult, unspecified obesity type, unspecified whether serious comorbidity present - ICD9: 278.00, V85.30, ICD10: E66.811, Z68.30 Weight decreasing - Behavioral intervention 16. RLS (restless legs syndrome) - ICD9: 333.94, ICD10: G25.81 - continue to follow 17. Stage 3 chronic kidney disease, unspecified whether stage 3a or 3b CKD (HCC) - ICD9: 585.3, ICD10: N18.30 - reasses labs. - BASIC METABOLIC PANEL - MAGNESIUM 18. Anemia, unspecified type - ICD9: 285.9, ICD10: D64.9 - ? Of ckd. - COMPLETE BLOOD COUNT AND DIFFERENTIAL - IRON AND TIBC 19. Encounter for screening examination for other mental health and behavioral disorders - ICD9: V79.8, ICD10: Z13.39 - ANXIETY SCREENING Jalyn Smith RTO in six months and prn. documented in this encounter [facility] 03-03-2024 Telephone encounter Note Prescription Refill Information The patient has been identified by name and date of : Yes Caregiver verified no other encounters exist for this prescription request: Yes Caregiver confirmed with patient/requestor that no other refills are due, in the near future, with this provider at this time: Yes The last office visit in the department: 09/08/23 Does the patient have a future office visit with this provider/department: Yes 03/09/24 Requested Prescriptions Pending Prescriptions Disp Refills baclofen 10 mg tablet 270 tablet 1 Sig: Take 1 tablet by mouth three times a day. Kristina Holloway LPN March 03, 2024 8:56 AM [facility] 03-03-2024 Miscellaneous Notes Prescription Refill Information The patient has been identified by name and date of : Yes Caregiver verified no other encounters exist for this prescription request: Yes Caregiver confirmed with patient/requestor that no other refills are due, in the near future, with this provider at this time: Yes The last office visit in the department: 09/08/23 Does the patient have a future office visit with this provider/department: Yes 03/09/24 Requested Prescriptions Pending Prescriptions Disp Refills baclofen 10 mg tablet 270 tablet 1 Sig: Take 1 tablet by mouth three times a day. Kristina Holloway LPN March 03, 2024 8:56 AM documented in this encounter [facility] 03-02-2024 History of Present illness Narrative CD Telephonic Outreach Provider Action/FYI Contacted for: Routine Telephonic Outreach Contact made with patient: No, left message. Selene Anaya RN March 02, 2024 3:53 PM Last CDM outreach contact: 02/03/24 - No new CDM concerns. Knees bothering her. Follows with Pain management and that Is helpful [facility] Telephonic Outreach Provider Action/FYI Contacted for: Routine Telephonic Outreach Contact made with patient: No, left message. Selene Anaya RN March 02, 2024 1:38 PM documented in this encounter [facility] 02-29-2024 Telephone encounter Note Prescription Refill Information The patient has been identified by name and date of : Yes Caregiver verified no other encounters exist for this prescription request: Yes Caregiver confirmed with patient/requestor that no other refills are due, in the near future, with this provider at this time: Yes The last office visit in the department: 09/08/23 Does the patient have a future office visit with this provider/department: Yes, 03/09/24 Requested Prescriptions Pending Prescriptions Disp Refills oxybutynin XL (DITROPAN XL) 5 mg 24 hr tablet 90 tablet 1 Sig: Take 1 tablet by mouth once daily. Aj Hermosillo LPN February 29, 2024 9:31 AM [facility] 02-29-2024 Miscellaneous Notes Prescription Refill Information The patient has been identified by name and date of : Yes Caregiver verified no other encounters exist for this prescription request: Yes Caregiver confirmed with patient/requestor that no other refills are due, in the near future, with this provider at this time: Yes The last office visit in the department: 09/08/23 Does the patient have a future office visit with this provider/department: Yes, 03/09/24 Requested Prescriptions Pending Prescriptions Disp Refills oxybutynin XL (DITROPAN XL) 5 mg 24 hr tablet 90 tablet 1 Sig: Take 1 tablet by mouth once daily. Aj Hermosillo LPN February 29, 2024 9:31 AM documented in this encounter [facility] 02-09-2024 Telephone encounter Note Prescription Refill Information The patient has been identified by name and date of : Yes Caregiver verified no other encounters exist for this prescription request: Yes Caregiver confirmed with patient/requestor that no other refills are due, in the near future, with this provider at this time: Yes The last office visit in the department: 09/08/23 Does the patient have a future office visit with this provider/department: Yes, 03/09/24 Requested Prescriptions Pending Prescriptions Disp Refills rOPINIRole (REQUIP) 0.5 mg tablet 270 tablet 1 Sig: Take 3 tablets by mouth daily at bedtime. Aj Hermosillo LPN February 09, 2024 10:52 AM [facility] 02-09-2024 Miscellaneous Notes Prescription Refill Information The patient has been identified by name and date of : Yes Caregiver verified no other encounters exist for this prescription request: Yes Caregiver confirmed with patient/requestor that no other refills are due, in the near future, with this provider at this time: Yes The last office visit in the department: 09/08/23 Does the patient have a future office visit with this provider/department: Yes, 03/09/24 Requested Prescriptions Pending Prescriptions Disp Refills rOPINIRole (REQUIP) 0.5 mg tablet 270 tablet 1 Sig: Take 3 tablets by mouth daily at bedtime. Aj Hermosillo LPN February 09, 2024 10:52 AM documented in this encounter [facility] 02-03-2024 History of Present illness Narrative CDM Telephonic Outreach Provider Action/FYI Contacted for: Routine Telephonic Outreach Contact made with patient: Yes Patient identified by name and date of . Discussed care with patient Are you experiencing any new or worsening symptoms you need to talk about today? No Disease Specific Do you check your blood pressure at home? Yes, Enter readings: 123/70 Do you have new or worsening shortness of breath with activity? No Baseline: SOB with exertion. Oxygen 3 L/NC 29/12 Do you have new or worsening cough? No Baseline: Occasional cough Do you have new or worsening wheezing? No Do you need to use your rescue (Albuterol) inhaler or nebulizer more often than normal? No Baseline: Albuterol inhaler PRN Nebulizer BID Lives with daughter. Feels safe. 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 Routed to: No Action Needed SAMMY Education Provided this Outreach: No Selene Anaya RN February 03, 2024 3:34 PM Care Coordination next call- COPD HTN DM Last CDM outreach contact: 02/03/24 - No new CDM concerns. Knees bothering her. Follows with Pain management and that Is helpful Baseline: 02/03/24 ADL, FALL, GOAL due: 09/20/24 . Chronic disease goal - 01/11/24- completed all 10/15/22 -COPD - 10/19/23- reviewed zones/management 05/06/23- HTN - SDOH completed: 02/03/24 CDM Telephonic Outreach Provider Action/FYI Contacted for: Routine Telephonic Outreach Contact made with patient: No, left message. Selene Anaya RN February 03, 2024 2:02 PM documented in this encounter [facility] 02-01-2024 Telephone encounter Note Patient phones requesting refills as follows: Requested Prescriptions Pending Prescriptions Disp Refills dtjthgdivw-pffdkbsz-vhxsytncdb (BREZTRI) 160-9-4.8 mcg/actuation HFA aerosol inhaler 10.7 g 5 Sig: Inhale 2 Puffs as instructed two times a day. Please review and advise. Staci Zamorano LPN [facility] 02-01-2024 Miscellaneous Notes Patient phones requesting refills as follows: Requested Prescriptions Pending Prescriptions Disp Refills dxmnmgxfcu-xcacaqla-nqnjprwkuf (BREZTRI) 160-9-4.8 mcg/actuation HFA aerosol inhaler 10.7 g 5 Sig: Inhale 2 Puffs as instructed two times a day. Please review and advise. Staci Zamorano LPN documented in this encounter [facility] 01-11-2024 History of Present illness Narrative [facility] Telephonic Outreach Provider Action/FYI Contacted for: Routine Telephonic Outreach Contact made with patient: Yes Patient identified by name and date of . Discussed care with patient Are you experiencing any new or worsening symptoms you need to talk about today? No Disease Specific Do you check your blood pressure at home? Yes, Enter readings: 120/70 Do you have new or worsening shortness of breath with activity? No Do you have new or worsening cough? No Do you have new or worsening wheezing? No Do you need to use your rescue (Albuterol) inhaler or nebulizer more often than normal? 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 Routed to: No Action Needed SAMMY Education Provided this Outreach: No Selene Anaya RN January 11, 2024 2:52 PM Care Coordination next call- COPD HTN DM Last CDM outreach contact: 01/11/24 - No new CDM concerns. Baseline: 01/11/24 ADL, FALL, GOAL due: 09/20/24 . Chronic disease goal - 01/11/24- completed all 10/15/22 -COPD - 10/19/23- reviewed zones/management 05/06/23- HTN - SDOH transportation and food insecurity completed: 01/11/23 documented in this encounter [facility] 01-11-2024 Telephone encounter Note Prescription Refill Information The patient has been identified by name and date of : Yes Caregiver verified no other encounters exist for this prescription request: Yes Caregiver confirmed with patient/requestor that no other refills are due, in the near future, with this provider at this time: Yes The last office visit in the department: 09/08/2023 Does the patient have a future office visit with this provider/department: Yes Requested Prescriptions Pending Prescriptions Disp Refills albuterol HFA (VENTOLIN HFA) 90 mcg/actuation inhaler 18 g 3 Sig: Inhale 2 Puffs as instructed every 4 hours as needed for wheezing/shortness of breath. Casandra Burrell LPN January 11, 2024 11:07 AM [facility] 01-11-2024 Miscellaneous Notes Prescription Refill Information The patient has been identified by name and date of : Yes Caregiver verified no other encounters exist for this prescription request: Yes Caregiver confirmed with patient/requestor that no other refills are due, in the near future, with this provider at this time: Yes The last office visit in the department: 09/08/2023 Does the patient have a future office visit with this provider/department: Yes Requested Prescriptions Pending Prescriptions Disp Refills albuterol HFA (VENTOLIN HFA) 90 mcg/actuation inhaler 18 g 3 Sig: Inhale 2 Puffs as instructed every 4 hours as needed for wheezing/shortness of breath. Casandra Burrell LPN January 11, 2024 11:07 AM documented in this encounter [facility] 01-06-2024 History of Present illness Narrative Images from the original note were not included. [facility] DEPART[facility]UL[facility]IC[facility] Date: January 06, 2024 Patient Name: Kandi Correia PRIMARY CARE PROVIDER: Jalyn Smith MD REASON FOR VISIT: follow up HPI: Kandi Correia 78 year old female former [id number] smoker having quit in 2011 with PMH significant for obesity, HTN, fibromyalgia, descending aortic aneurysm with dissection, MICHEL not on CPAP, severe COPD (FEV1 32%), chronic hypoxemic respiratory failure presenting for follow-up visit. Last office visit 09/30/2023 with myself. Current treatment with Breztri and as needed Albuterol. Today, patient reports significant improvement with Breztri. Daily cough with white, thick sputum. She states she is producing less mucus with using the inhaler versus nebulizer. She has mucinex at home, but has not been using it. No hemoptysis. No wheezing. Exertional dyspnea has not changed. She is SOB with minimal effort and does not overly exert herself. She is in a wheelchair in the office and daughter states she is typically in a chair at home or the wheelchair. No fevers, chills, or night sweats. No unintended weight loss. No lower extremity edema. No GERD/heartburn. No recent hospitalizations or ED visits or upper respiratory infections. Currently wearing 3L supplemental oxygen. DME: [employer] IMMUNIZATIONS: Immunization History Administered Date(s) Administered COVID-19 original vaccine, full dose, monovalent (MODERNA) 07/05/2020 08/02/2020 07/30/2021 COVID-19 vaccine, age 12+ yr, bivalent ([employer]) 03/20/2022 influenza (HD-IIV3) vaccine, age 65+ yr, high dose, PF (FLUZONE HIGH-DOSE) 03/09/2014 03/07/2015 06/19/2016 06/29/2019 influenza (HD-IIV4) vaccine, age 65+ yr, high dose, quadrivalent, PF (FLUZONE HIGH-DOSE) 03/20/2022 influenza vaccine, unspecified formulation 02/25/2013 pneumococcal conjugate (PCV13) vaccine, 13 valent (PREVNAR 13) 06/19/2016 pneumococcal polysaccharide (PPV23) vaccine, 23 valent (PNEUMOVAX 23) 03/09/2014 tetanus diphtheria pertussis (Tdap) vaccine, age 7+ yr (ADACEL, BOOSTRIX) 08/30/2021 PAST MEDICAL HISTORY No date: AAA (abdominal aortic aneurysm) (HCC) 09/09/2023: Abdominal aortic aneurysm (AAA) without rupture (HCC) 11/05/2023: 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 Perry (vascular) 09/21/2023: Dissection of thoracoabdominal aorta ([facility]) No date: Fibromyalgia No date: HTN (hypertension) No date: OA (osteoarthritis) No date: MICHEL (obstructive sleep apnea) Comment: not on CPAP No date: Restless leg syndrome 12/23/2018: Thoracic aortic aneurysm (HCC) PAST SURGICAL HISTORY No date: HYSTERECTOMY HX Comment: prolapse non ca, total No date: TONSILLECTOMY HX Social History Tobacco Use Smoking status: Former Packs/day: 0.50 Years: 45.00 Additional pack years: 0.00 Total pack years: 22.50 Types: Cigarettes Start date: 08/30/1966 Quit date: 01/29/2012 Years since quittin.9 Smokeless tobacco: Never Tobacco comments: Father smoked in childhood home. Spouse smoked briefly after marriage. Vaping Use Vaping Use: Never used Substance Use Topics Alcohol use: No Drug use: No FAMILY HISTORY Problem Relation Age of Onset other (lymphoma) Mother COPD Father other (bone cancer) Father Ischemic Heart Disease Son 33 REVIEW OF SYSTEMS: General: Denies fever/chills, fatigue, malaise, unintentional weight loss HEENT: Denies headaches, nosebleeds, congestion Neck: Denies lumps, pain, significant neck swelling Respiratory: See HPI Cardiovascular: Denies chest pain, syncope, palpitations GI: Denies abdominal pain, nausea, vomiting, diarrhea : Denies dysuria, hematuria Musculoskeletal: Denies joint pain or swelling Extremities: Denies calf pain, swelling Skin: Denies rash, itching Neuro: Denies headaches, dizziness PHYSICAL EXAMINATION: BP 132/76 Pulse 62 Resp 17 SpO2 95% O2: 3L NC General: Awake & alert, no distress, speaking in full sentences. Sitting in wheelchair. HEENT: NCAT, MMM. Dentures. No oral thrush. Neck: Supple, no rigidity. Trachea is midline Heart: HR regular, S1/S2 Lungs: Non-labored breathing. Clear breath sounds bilaterally. No wheezes, crackles or rhonchi. Abdomen: Soft, non-tender/non-distended. Bowel sounds present Extremities: Trace bilateral edema Skin: Warm, dry Neurological: Moves all extremities x4. Grossly normal cognition and motor function Laboratory and Imaging: Last Spirometry SPIROMETRY BASELINE ONLY Collected: 01/11/2021 2:09 PM (Final result) Narrative: [facility] [address] [place] [address] Test Date: 2021-01-11 Pat Name: KANDI CORREIA Department: Room: Gender: Female Physician Scientist: ROBERT Palencia : 1945 Requested By: Order Number: [id number] Reading MD: Brady Avila Interpretive Statements The exhaled (FEVC) spirometry manuever meets ATS/ERS acceptability and repeatability standards. The inspired (FIVC) spirometry manuever is less than the FVC manuever. //KM IMPRESSION: The flow volume demonstrates an obstructive pattern. Spirometry indicates severe obstruction. The reduced FVC may be due to obstruction: however concurrent restriction is not excluded. Lung volumes are suggested for clarification if clinically indicated. Electronically Signed On 01-11-2021 15:37:50 EDT by Brady Avila Site: WO ID: [id number] Name: KANDI CORREIA Visit Date: 01/11/2021 Second ID: [id number] Reviewing Doctor: [place] Physician Scientist: ROBERT M. Age: 75 : 1945 Sex: Female Race: Height: 64.00 Inches Weight: 226.80 Lbs BSA: 2.06 Order IDs: [id number] Requested Test(s): Spirometry baseline only Diagnosis: J43.2^Centrilobular emphysema (HCC)^ICD-10-CM [employer] Prod: Cigarette Yrs Quit: 12.0 Post Test Comments: The exhaled (FEVC) spirometry manuever meets ATS/ERS acceptability and repeatability standards. The inspired (FIVC) spirometry manuever is less than the FVC manuever. //KM Review Status: Not Reviewed Pre-Bronch Post-Bronch Pred LLN ULN Actual %Pred Actual %Chng SPIROMETRY FVC (L) 2.75 1.99 3.56 1.86 67 FEV1 (L) 2.12 1.53 2.69 0.68 32 FEV1/FVC (%) 78 64 90 37 46 FEF 25% (L/sec) 4.67 2.52 6.81 0.55 11 FEF 50% (L/sec) 3.25 1.44 5.07 0.20 6 FEF 75% (L/sec) 0.42 0.15 1.14 0.13 31 FEF 25-75% (L/sec) 1.77 0.79 3.18 0.19 10 FEF Max (L/sec) 5.41 1.43 26 FIVC (L) 1.68 FIF 50% (L/sec) 3.52 2.09 4.96 2.43 69 FIF Max (L/sec) 3.10 FET (sec) 13.95 Back Extrap Vol (L) 0.04 Time To FEFmax (sec) 0.125 Arterial blood gas: pH, Arterial Date Value Ref Range Status 12/23/2018 7.347 (L) 7.350 - 7.450 Final pCO2, Arterial Date Value Ref Range Status 12/23/2018 50.1 (H) 35.0 - 45.0 mm Hg Final pO2, Arterial Date Value Ref Range Status 12/23/2018 71.9 (L) 83.0 - 108.0 mm Hg Final Base Excess, Arterial Date Value Ref Range Status 12/23/2018 1.0 -3.0 - 3.0 mmol/L Final Lactic Acid Date Value Ref Range Status 12/23/2018 1.5 0.4 - 2.0 mEq/L Final CT Chest other findings: Last CT Chest - Impression Only CTA CHEST/ABD/PEL (NONGATED) W IVCON Exam End: 10/14/2023 2:22 PM (Final result) Impression: IMPRESSION: Vin 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 Mild diffuse atherosclerotic disease as detailed without hemodynamically significant stenosis. ... Last XR Chest - Impression Only XR CHEST 2V FRONTAL/LAT Exam End: 09/08/2023 3:13 PM (Final result) Impression: IMPRESSION: Atelectasis or fibrosis at the left base is stable. Mild infrahilar infiltrate on the right. Follow-up recommended ... ASSESSMENT/PLAN: 1. COPD, severe (HCC) - ICD9: 496, ICD10: J44.9 (primary diagnosis) Continue maintenance therapy with Breztri. Rinse mouth after each use to help prevent oral thrush. Albuterol HFA inhaler, 2 inhalations 10-15 minutes prior to activities associated with shortness of breath, and as needed for rescue relief of shortness of breath or wheezing, up to 4 times daily. Discussed pulmonary rehab, but patient declined at this time. 2. Chronic respiratory failure with hypoxia (HCC) - ICD9: 518.83, 799.02, ICD10: J96.11 Patient is compliant and benefits from supplemental oxygen. 3. Former cigarette smoker - ICD9: V15.82, ICD10: Z87.891 Former 19-fuqh-mroa smoker having quit in 2011 with sequelae of severe COPD Patient is not a candidate for lung cancer screening based on her severe COPD, oxygen dependence, other comorbidities and debilitated state 4. Class 2 obesity - ICD9: 278.00, ICD10: E66.9 Weight loss encouraged. Patient is encouraged to call with any questions, concerns or new issues prior to next scheduled visit. Some documentation from previous encounter of 09/30/2023 was copied and pasted after being reviewed and edited as appropriate for today's visit. Juhi Nolasco PA-C documented in this encounter [facility] 12-14-2023 History of Present illness Narrative CD Telephonic Outreach Provider Action/FYI Contacted for: Routine Telephonic Outreach Contact made with patient: No, left message. Selene Anaya RN December 14, 2023 4:22 PM Care Coordination next call- COPD HTN DM lvm x 4 Last CDM outreach contact: 10/19/23 - No new CDM concerns. Baseline: 07/20/23 ADL, FALL, GOAL due: 09/20/24 . Chronic disease goal - 10/15/22 -COPD - 10/19/23- reviewed zones/management 05/06/23- HTN - Need review SDOH transportation and food insecurity completed: 01/11/23 [facility] Telephonic Outreach Provider Action/FYI Contacted for: Routine Telephonic Outreach Contact made with patient: No, left message. Selene Anaya RN December 14, 2023 3:09 PM documented in this encounter [facility] 11-18-2023 Telephone encounter Note Patient notified RX sent to [facility]. I called [facility] is currently on backorder. Spoke to Giancarlo at [facility]. They did have RX in stock. Called in one month supply x1 refill. Patient notified re: same. Staci Zamorano LPN [facility] 11-18-2023 Miscellaneous Notes Patient notified RX sent to [facility]. I called [facility] is currently on backorder. Spoke to Giancarlo at [facility]. They did have RX in stock. Called in one month supply x1 refill. Patient notified re: same. Staci Zamorano LPN Sent to pharmacy. [facility] Patient phones requesting refills as follows: Requested Prescriptions Pending Prescriptions Disp Refills utymtswzyw-aaisvoae-oepfmmzaax (BREZTRI) 160-9-4.8 mcg/actuation HFA aerosol inhaler 32.1 g 3 Sig: Inhale 2 Puffs as instructed two times a day. Please review and advise. Staci Zamorano LPN documented in this encounter [facility] 11-18-2023 Telephone encounter Note Sent to pharmacy. [facility] 11-18-2023 Telephone encounter Note Patient phones requesting refills as follows: Requested Prescriptions Pending Prescriptions Disp Refills cmywdphqyd-jwfjebus-wpparubhiu (BREZTRI) 160-9-4.8 mcg/actuation HFA aerosol inhaler 32.1 g 3 Sig: Inhale 2 Puffs as instructed two times a day. Please review and advise. Staci Zamorano LPN [facility] 11-18-2023 Telephone encounter Note Opened in error. Staci Zamorano LPN [facility] 11-18-2023 Miscellaneous Notes Opened in error. Staci Zamorano LPN documented in this encounter [facility] 11-16-2023 History of Present illness Narrative CDM Telephonic Outreach Provider Action/FYI Contacted for: Routine Telephonic Outreach Contact made with patient: No, left message. Selene Anaya RN November 16, 2023 11:59 AM CDM Telephonic Outreach Provider Action/FYI Contacted for: Routine Telephonic Outreach Contact made with patient: No, left message. Selene Anaya RN November 16, 2023 2:51 PM Care Coordination next call- COPD HTN DM lvm x 2 Last CDM outreach contact: 10/19/23 - No new CDM concerns. Baseline: 07/20/23 ADL, FALL, GOAL due: 09/20/24 . Chronic disease goal - 10/15/22 -COPD - 10/19/23- reviewed zones/management 05/06/23- HTN - Need review SDOH transportation and food insecurity completed: 01/11/23 documented in this encounter [facility] 11-12-2023 Telephone encounter Note Patient MyChart message requesting the following refill Refill(s) Requested: Requested Prescriptions Pending Prescriptions Disp Refills metFORMIN (GLUCOPHAGE) 500 mg tablet 30 tablet 0 Sig: Take 1 tablet by mouth daily with breakfast. ALLERGIES Allergen Reactions Lisinopril Other: See Comments cough Lyrica [Pregabalin] Swelling (home) [phone] (cell) Last Office Visit Date: 09/08/2023 Last [facility] Visit: Visit date not found Future Appointment: 03/09/2024 The patients preferred pharmacy has been captured for this encounter? yes Request is for script(s) to be escript to pharmacy. Cecile Hollins LPN [facility] 11-12-2023 Miscellaneous Notes Patient MyChart message requesting the following refill Refill(s) Requested: Requested Prescriptions Pending Prescriptions Disp Refills metFORMIN (GLUCOPHAGE) 500 mg tablet 30 tablet 0 Sig: Take 1 tablet by mouth daily with breakfast. ALLERGIES Allergen Reactions Lisinopril Other: See Comments cough Lyrica [Pregabalin] Swelling (home) [phone] (cell) Last Office Visit Date: 09/08/2023 Last [facility] Health Visit: Visit date not found Future Appointment: 03/09/2024 The patients preferred pharmacy has been captured for this encounter? yes Request is for script(s) to be escript to pharmacy. Cecile Hollins LPN documented in this encounter [facility] 11-05-2023 History of Present illness Narrative Images from the original note were not included. [facility] ESTABLISHED CLINIC VISIT Kandi Correia [id number] HPI: Ms. 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 Denies any new chest back or abdominal pain. She has been feeling better following her completion of antibiotics for a pneumonia. We obtained a surveillance CTA chest abdomen pelvis as she had not had imaging for her dissection since 04/18/2022. MEDICATIONS: rOPINIRole (REQUIP) 0.5 mg tablet Take 3 tablets by mouth daily at bedtime. gabapentin (NEURONTIN) 100 mg capsule Take 1 capsule by mouth three times a day for 180 days. metFORMIN (GLUCOPHAGE) 500 mg tablet Take 1 tablet by mouth daily with breakfast. baclofen 10 mg tablet Take 1 tablet by mouth three times a day. ferrous sulfate 325 mg (65 mg iron) tablet Take 1 tablet by mouth two times a day with meals. hydroCHLOROthiazide 12.5 mg capsule Take 2 capsules by mouth once daily. sertraline (ZOLOFT) 50 mg tablet Take 1 tab once a day. traMADol (ULTRAM) 50 mg tablet Take 50 mg by mouth two times a day. casqggzyna-thjkqnvc-zabeoikkeg (BREZTRI) 160-9-4.8 mcg/actuation HFA aerosol inhaler Inhale 2 Puffs as instructed two times a day. metoprolol succinate ER (TOPROL XL) 50 mg 24 hr tablet Take 1 tablet by mouth once daily. Hold if HR is less than 50 or systolic BP is less than 100 oxybutynin XL (DITROPAN XL) 5 mg 24 hr tablet Take 1 tablet by mouth once daily. fluticasone (FLONASE) 50 mcg/actuation nasal spray USE 1 SPRAY IN EACH NOSTRIL ONCE DAILY albuterol HFA (VENTOLIN HFA) 90 mcg/actuation inhaler Inhale 2 Puffs as instructed every 4 hours as needed for wheezing/shortness of breath. Lancets lancets Test blood sugar(s) 2 times daily. Dx: Type 2 DM - Controlled E11.9 Insulin: No (Patient taking differently: Test blood sugar(s) 2 times daily. Dx: Type 2 DM - Controlled E11.9 Insulin: No Takes blood sugar once daily) blood sugar diagnostic (BLOOD GLUCOSE TEST) test strip Test blood sugar(s) 2 times daily. Dx: Type 2 DM - Controlled E11.9 Insulin: No (Patient taking differently: Test blood sugar(s) 2 times daily. Dx: Type 2 DM - Controlled E11.9 Insulin: No Takes blood sugar once daily) COMPOUNDED PRESCRIPTION Oxygen via nasal canula 2 L N/C DX: copd and hypoxia (Patient taking differently: Oxygen via nasal canula 2 L N/C DX: copd and hypoxia Uses O2 at 3 l/m via NC) COMPOUNDED PRESCRIPTION Lightweight portable oxygen DX: copd, 2 L nc continuously (Patient taking differently: Lightweight portable oxygen DX: copd, 2 L nc continuously Uses at 3 l/m via NC) SOCIAL HISTORY: Social History Tobacco Use Smoking status: Former Packs/day: 0.50 Years: 45.00 Additional pack years: 0.00 Total pack years: 22.50 Types: Cigarettes Start date: 08/30/1966 Quit date: 01/29/2012 Years since quittin.7 Smokeless tobacco: Never Tobacco comments: Father smoked in childhood home. Spouse smoked briefly after marriage. Vaping Use Vaping Use: Never used Substance Use Topics Alcohol use: No Drug use: No PAST MEDICAL HISTORY: PAST MEDICAL HISTORY Diagnosis Date AAA (abdominal aortic aneurysm) (HCC) Abdominal aortic aneurysm (AAA) without rupture (HCC) 09/09/2023 Aneurysm, thoracic aortic (HCC) Arthritis Centrilobular emphysema (HCC) 10/01/2022 Chronic pain Chronic respiratory failure with hypoxia (HCC) 05/24/2019 Chronic venous stasis dermatitis COPD (chronic obstructive pulmonary disease) ([facility]) Degenerative disc disease Depression Descending thoracic aortic dissection ([facility]) 12/22/[address] Perry (vascular) Dissection of thoracoabdominal aorta ([facility]) 09/21/2023 Fibromyalgia HTN (hypertension) OA (osteoarthritis) MICHEL (obstructive sleep apnea) not on CPAP Restless leg syndrome Thoracic aortic aneurysm ([facility]) 12/23/2018 PAST SURGICAL HISTORY: PAST SURGICAL HISTORY Procedure Laterality Date HYSTERECTOMY HX prolapse non ca, total TONSILLECTOMY HX ALLERGIES: ALLERGIES Allergen Reactions Lisinopril Other: See Comments cough Lyrica [Pregabalin] Swelling Targeted ROS Comprehensive system review of systems did not reveal any pertinent positives or negatives except per HPI PHYSICAL EXAM: Focused Physical Exam: BP 115/72 Pulse 64 SpO2 96[2L]% General: WDWN in NAD Pulmonary: Non-labored on RA Coronary: Regular rate, no DONTE or JVD Abdomen: Non-tender, Non-distended Extremities: Normal range of motion, no edema or ulceration Neurologic: Awake, alert and oriented. Normal and symmetrical M/S function DIAGNOSTIC TESTS REVIEWED FOR TODAY'S VISIT: Most recent labs and imaging results CTA CAP 10/14/23 IMPRESSION: Vin 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 Again demonstrated is a dissection originating in the mid descending thoracic aorta extending to the distal left common iliac artery with opacification of the false lumen. Descending aorta measures 5.2 cm in maximum transverse diameter (302:247), previously 5 cm. Infrarenal aorta measures 4 cm in maximal transverse diameter, unchanged. Celiac axis, SMA, bilateral renal arteries (2 renal arteries on the right and 3 renal arteries on the left), SOO, bilateral common iliac and left external and internal iliac arteries arise from the true lumen. Communication between the true and false lumen noted in the mid descending thoracic aorta and at the origin of the left external iliac artery, unchanged Celiac artery demonstrates no significant focal stenosis. Superior mesenteric artery demonstrates no significant focal stenosis. Inferior mesenteric artery demonstrates no significant focal stenosis. LEFT LEG: Left common iliac artery is aneurysmally dilated at 3.1 cm, previously 2.9 cm. Left external iliac artery is patent with no significant stenosis. Left internal iliac artery patent with mild ectasia 1.2 cm, unchanged. Left common femoral artery demonstrates atherosclerotic change without significant focal stenosis. 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 Imaging reviewed showing overall stable anatomy with aneurysmal dilation of the descending thoracic aorta at 5.13 cm from previously 5.1 cm in 2021, preserved mesenteric perfusion, and aneurysmally dilated L SINDHU to 28.4 mm (previously 26.1 mm). She has significant comorbidities that would place her at a high risk for any type of operative intervention including severe COPD on continuous 3 L of oxygen, obesity, hypertension, minimal ambulation and metabolic reserve, chronic respiratory failure with FEV1 of 32%. Will plan for continued medical management of her chronic dissection with blood pressure control if she does fit criteria for any operative repair at this time. - Continue cardiovascular risk factor modification with blood pressure control and asa/statin therapy as tolerated at the direction of Jalyn Smith MD - Follow up in 1 year with CTA CAP for TBAD surveillance. Yaniv Todd MD Vascular Surgery Staff 11/05/2023 Medical Decision Making: Problems: Moderate: 1+ chronic illnesses with change Data: Unique test result(s) reviewed: 1 Unique test(s) ordered: 1 Independent interpretation of test from other physician/QHCP Medical Decision Making Level: 4 - Moderate documented in this encounter [facility] 11-03-2023 Telephone encounter Note Patient calling with request for assistance with finding a supply company that [employer] will cover. Patient received a letter that her [employer] is no longer covered. Patient receives her oxygen supplies from them. Patient denies any new or worsening symptoms of which a provider is not aware: Yes. Patient transferred to her pulmonary provider's office. She was also advised to contact [employer] directly to see which medical supply company may be covered. [facility] 11-03-2023 Miscellaneous Notes Patient calling with request for assistance with finding a supply company that [employer] will cover. Patient received a letter that her [employer] is no longer covered. Patient receives her oxygen supplies from them. Patient denies any new or worsening symptoms of which a provider is not aware: Yes. Patient transferred to her pulmonary provider's office. She was also advised to contact [facility] directly to see which medical supply company may be covered. documented in this encounter [facility] 10-29-2023 Telephone encounter Note The following approved medication requests have been transmitted electronically. Requested Prescriptions Pending Prescriptions Disp Refills rOPINIRole (REQUIP) 0.5 mg tablet 270 tablet 1 Sig: Take 3 tablets by mouth daily at bedtime. Casandra Kinsey APRN.CNS [facility] 10-29-2023 Miscellaneous Notes The following approved medication requests have been transmitted electronically. Requested Prescriptions Pending Prescriptions Disp Refills rOPINIRole (REQUIP) 0.5 mg tablet 270 tablet 1 Sig: Take 3 tablets by mouth daily at bedtime. Casandra Kinsey APRN.CNS Patient has been identified by name and date of : yes Patient phones for refill(s): Requested Prescriptions Pending Prescriptions Disp Refills rOPINIRole (REQUIP) 0.5 mg tablet 90 tablet 0 Sig: Take 3 tablets by mouth daily at bedtime. Date of last office visit in primary care: 09/08/2023 Date of next office visit in primary care: 03/09/2024 Please advise. Thank you. Zackery Corral MA. documented in this encounter [facility] 10-29-2023 Telephone encounter Note Patient has been identified by name and date of : yes Patient phones for refill(s): Requested Prescriptions Pending Prescriptions Disp Refills rOPINIRole (REQUIP) 0.5 mg tablet 90 tablet 0 Sig: Take 3 tablets by mouth daily at bedtime. Date of last office visit in primary care: 09/08/2023 Date of next office visit in primary care: 03/09/2024 Please advise. Thank you. Zackery Corral MA. [facility] 10-19-2023 History of Present illness Narrative CDM Telephonic Outreach Provider Action/FYI Contacted for: Routine Telephonic Outreach Contact made with patient: Yes Patient identified by name and date of . Discussed care with patient Are you experiencing any new or worsening symptoms you need to talk about today? No Disease Specific Do you check your blood pressure at home? Yes, Enter readings: 115/70 Do you have new or worsening shortness of breath with activity? No Do you have new or worsening cough? No Do you have new or worsening wheezing? No Do you need to use your rescue (Albuterol) inhaler or nebulizer more often than normal? No Reviewed COPD goals with patient: Fill your prescriptions. Take ALL of your medicines as prescribed; don't stop the medicines because you feel better (including inhalers). Drink at least 6-8 eight-ounce glasses of non-caffeinated fluids unless a lesser amount is ordered by your doctor. Pace yourself with exercise -- walking can help build up your strength. Daily exercise is important. Don't smoke, and avoid being around others who smoke (secondhand smoke). Eat a healthy diet (a lot of fresh vegetables, fruit, etc.). Limit alcohol use -- talk with your doctor about this. Avoid being around people who are sick. Get your flu vaccine yearly. Ask your physician about your need for the pneumococcal vaccine. See your PCP at 2x/year, and your Pulm at least 1x/year COPD zones. How to use MDI. Understanding COPD. Based on aircraft maintenance technician, the following disposition is advised: No symptoms or symptoms present, not severe. Routed to: No Action Needed SAMMY Education Provided this Outreach: No Selene Anaya RN October 19, 2023 12:28 PM Care Coordination next call- COPD HTN DM Last CDM outreach contact: 10/19/23 - No new CDM concerns. Baseline: 07/20/23 ADL, FALL, GOAL due: 09/20/24 . Chronic disease goal - 10/15/22 -COPD - 10/19/23- reviewed zones/management 05/06/23- HTN - Need review SDOH transportation and food insecurity completed: 01/11/23 documented in this encounter [facility] 10-14-2023 History of Present illness Narrative Radiology Service Progress Note PATIENT NAME: Kandi Correia DATE OF SERVICE: October 14, 2023 TIME: 2:13 PM PATIENT IDENTITY VERIFICATION COMPLETED USING TWO (2) IDENTIFIERS: Name and Date of confirmed by patient verbally and Name and Date of confirmed by identification band. FALL SCREENING: Has the patient had 2 falls in the last year or 1 fall with injury or currently using an Ambulatory Assistive Device (Walker, Cane, Wheelchair, Crutches, etc.)? No PATIENT GENDER DATA: Female. status: : No status: NO. PATIENT RELEVANT IMPLANT DATA REVIEWED: Not Applicable PATIENT PRESENTS WITH AN IMPLANTABLE OR ATTACHED PRESSER HAND: No RADIOLOGY DEPARTMENT: CT; Exam(s) Completed: CTA Abdomen Pelvis and CTA Cardiac PERIPHERAL IV DATA: Site assessment: Clean,Dry and Intact, Site disposition Discontinued SIGNED BY: VERA Milner October 14, 2023 2:13 PM documented in this encounter [facility] 10-14-2023 Nurse Note Radiology Service Progress Note DATE OF SERVICE: October 14, 2023 TIME: 2:09 PM PATIENT WEIGHT: 187LBS PATIENT IDENTITY VERIFICATION COMPLETED USING TWO (2) STANDARD IDENTIFIERS: Name and Date of confirmed by patient verbally and Name and Date of confirmed by identification band. FALL SCREENING: Has the patient had 2 falls in the last year or 1 fall with injury or currently using an Ambulatory Assistive Device (Walker, Cane, Wheelchair, Crutches, etc.)? Yes, Patient High Risk for Falls What interventions were put in place to prevent falls during this visit? [place] Risk Wristband Applied, Instructed Patient to Remain Seated (Not on Exam Table) Until Exam, Increased Observations by Caregivers, and Patient Refused Interventions/Assistance PATIENT GENDER DATA: Female. status: : No status: NO. ALLERGIES: Reviewed and unchanged CONTRAST ALLERGY: No EXAM: CT -CONTRAST INDUCED NEPHROPATHY RISK FACTORS: Patient age > 60 years CREATININE: Creatinine Date Value Ref Range Status 09/23/2023 0.93 0.58 - 0.96 mg/dL Final 09/08/2023 1.03 (H) 0.58 - 0.96 mg/dL Final 01/12/2023 0.89 0.58 - 0.96 mg/dL Final Estimated Glomerular Filtration Rate Date Value Ref Range Status 09/23/2023 64 >=60 mL/min/1.73m Final Comment: Estimated Glomerular Filtration Rate (eGFR) is calculated using the 2020 CKD-EPI creatinine equation. This equation utilizes serum creatinine, sex, and age as parameters. The creatinine assay has traceable calibration to isotope dilution-mass spectrometry. Refer to KDIGO guidelines for clinical interpretation. In patients with unstable renal function, e.g. those with acute kidney injury, the eGFR may not accurately reflect actual GFR. eGFR- Date Value Ref Range Status 01/11/2021 >60 Final P.O.C.T. RESULTS: N/A October 14, 2023 TREATMENT: N/A IV SITE: Ambulatory: A peripheral IV was started in the Left antecubital site with a Angio cath: 20 gauge. IV SITE APPEARANCE: Clean,Dry and Intact SIGNATURE: Deana Basilio RN PATIENT NAME: Kandi Correia DATE: October 14, 2023 TIME: 2:09 PM [facility] 10-14-2023 Nurse Note Radiology Service Progress Note DATE OF SERVICE: October 14, 2023 TIME: 2:09 PM PATIENT WEIGHT: 187LBS PATIENT IDENTITY VERIFICATION COMPLETED USING TWO (2) STANDARD IDENTIFIERS: Name and Date of confirmed by patient verbally and Name and Date of confirmed by identification band. FALL SCREENING: Has the patient had 2 falls in the last year or 1 fall with injury or currently using an Ambulatory Assistive Device (Walker, Cane, Wheelchair, Crutches, etc.)? Yes, Patient High Risk for Falls What interventions were put in place to prevent falls during this visit? [place] Risk Wristband Applied, Instructed Patient to Remain Seated (Not on Exam Table) Until Exam, Increased Observations by Caregivers, and Patient Refused Interventions/Assistance PATIENT GENDER DATA: Female. status: : No status: NO. ALLERGIES: Reviewed and unchanged CONTRAST ALLERGY: No EXAM: CT -CONTRAST INDUCED NEPHROPATHY RISK FACTORS: Patient age > 60 years CREATININE: Creatinine Date Value Ref Range Status 09/23/2023 0.93 0.58 - 0.96 mg/dL Final 09/08/2023 1.03 (H) 0.58 - 0.96 mg/dL Final 01/12/2023 0.89 0.58 - 0.96 mg/dL Final Estimated Glomerular Filtration Rate Date Value Ref Range Status 09/23/2023 64 >=60 mL/min/1.73m Final Comment: Estimated Glomerular Filtration Rate (eGFR) is calculated using the 2020 CKD-EPI creatinine equation. This equation utilizes serum creatinine, sex, and age as parameters. The creatinine assay has traceable calibration to isotope dilution-mass spectrometry. Refer to KDIGO guidelines for clinical interpretation. In patients with unstable renal function, e.g. those with acute kidney injury, the eGFR may not accurately reflect actual GFR. eGFR- Date Value Ref Range Status 01/11/2021 >60 Final P.O.C.T. RESULTS: N/A October 14, 2023 TREATMENT: N/A IV SITE: Ambulatory: A peripheral IV was started in the Left antecubital site with a Angio cath: 20 gauge. IV SITE APPEARANCE: Clean,Dry and Intact SIGNATURE: Deana Basilio RN PATIENT NAME: Kandi Correia DATE: October 14, 2023 TIME: 2:09 PM documented in this encounter [facility] 10-02-2023 Telephone encounter Note Patient has been identified by name and date of : Yes, Provider Sam Rayburn Date 10/02/23 Time 04:33pm Patient phones for refill(s): Requested Prescriptions Pending Prescriptions Disp Refills gabapentin (NEURONTIN) 100 mg capsule 270 capsule 3 Sig: Take 1 capsule by mouth three times a day for 180 days. rOPINIRole (REQUIP) 0.5 mg tablet 90 tablet 0 Sig: Take 3 tablets by mouth daily at bedtime. metFORMIN (GLUCOPHAGE) 500 mg tablet 30 tablet 0 Sig: Take 1 tablet by mouth daily with breakfast. Date of last office visit in primary care: 09/08/2023 Date of next office visit in primary care: 03/09/2024 Please advise. Thank you. Nisha Valencia MA. [facility] 10-02-2023 Miscellaneous Notes Patient has been identified by name and date of : Yes, Provider Luis Date 10/02/23 Time 04:33pm Patient phones for refill(s): Requested Prescriptions Pending Prescriptions Disp Refills gabapentin (NEURONTIN) 100 mg capsule 270 capsule 3 Sig: Take 1 capsule by mouth three times a day for 180 days. rOPINIRole (REQUIP) 0.5 mg tablet 90 tablet 0 Sig: Take 3 tablets by mouth daily at bedtime. metFORMIN (GLUCOPHAGE) 500 mg tablet 30 tablet 0 Sig: Take 1 tablet by mouth daily with breakfast. Date of last office visit in primary care: 09/08/2023 Date of next office visit in primary care: 03/09/2024 Please advise. Thank you. Nisha Valencia MA. documented in this encounter [facility] 09-30-2023 Procedure note Associated Ord er(s): OXIMETRY WITH AMBULATION RESPIRATORY THERAPY OXIMETRY WITH AMBULATION Oximetry with Ambulation Test for This Encounter O2 Device O2 Adapter NC O2 Flow SpO2% HR Activity Ft Walked (ft) Time (min) Avg Speed (MPH) R/A 88 95 Resting NC 2 94 72 Resting NC 2 88 95 Walking, usual pace 70 2.5 0.32 NC 3 96 78 Resting NC 3 95 93 Walking, usual pace 90 3 0.34 General Information Pulse Oximetry Site Total Time Spent Walking Assistance/O2 Supply Carrier R Index Finger 30 Wheeled Walker NAME: Karen Vargas ALLMORTEZA PATIENT NAME: Kandi Correia DATE: September 30, 2023 TIME: 12:17 PM Comment: [facility] 09-30-2023 Procedure note Associated Ord er(s): OXIMETRY WITH AMBULATION RESPIRATORY THERAPY OXIMETRY WITH AMBULATION Oximetry with Ambulation Test for This Encounter O2 Device O2 Adapter NC O2 Flow SpO2% HR Activity Ft Walked (ft) Time (min) Avg Speed (MPH) R/A 88 95 Resting NC 2 94 72 Resting NC 2 88 95 Walking, usual pace 70 2.5 0.32 NC 3 96 78 Resting NC 3 95 93 Walking, usual pace 90 3 0.34 General Information Pulse Oximetry Site Total Time Spent Walking Assistance/O2 Supply Carrier R Index Finger 30 Wheeled Walker NAME: JOSE Alonzo PATIENT NAME: Kandi Correia DATE: September 30, 2023 TIME: 12:17 PM Comment: documented in this encounter [facility] 09-30-2023 History of Present illness Narrative PULM FUNCTION SMARTBLOCK: Provider: Zackery Mayfield MD Assisting Tech: Karen Vargas RPFT Oximetry - Ambulation: 1 documented in this encounter [facility] 09-30-2023 History of Present illness Narrative Images from the original note were not included. Patient: Kandi Correia PCP: Jalyn Smith MD CC: follow up HPI: Kandi Correia 78 year old female former [id number] smoker having quit in 2011 with PMH significant for obesity, HTN, fibromyalgia, descending aortic aneurysm with dissection, MICHEL not on CPAP, severe COPD (FEV1 32%), chronic hypoxemic respiratory failure presenting for follow-up visit. Current inhaled therapy consists of budesonide, Brovana and DuoNeb. Patient was seen in the [place] ED 08/28/[address] secondary to [address] abd/pelvis showed bibasilar consolidations and she was treated with Levaquin for 7 days. Today, patient states she is doing well. Daily cough productive of white phelgm. No hemoptysis. Exertional dyspnea with minimal effort. No fevers, chills or night sweats. Currently wearing 3 L continuously. DME: [employer] PAST MEDICAL HISTORY Diagnosis Date AAA (abdominal aortic aneurysm) ([facility]) Abdominal aortic aneurysm (AAA) without rupture ([facility]) 09/09/2023 Aneurysm, thoracic aortic ([facility]) Arthritis Centrilobular emphysema ([facility]) 10/01/2022 Chronic pain Chronic respiratory failure with hypoxia ([facility]) 05/24/2019 Chronic venous stasis dermatitis COPD (chronic obstructive pulmonary disease) ([facility]) Degenerative disc disease Depression Descending thoracic aortic dissection ([facility]) 12/22/[address] Perry (vascular) Dissection of thoracoabdominal aorta ([facility]) 09/21/2023 Fibromyalgia HTN (hypertension) OA (osteoarthritis) MICHEL (obstructive sleep apnea) not on CPAP Restless leg syndrome Thoracic aortic aneurysm ([facility]) 12/23/2018 Allergies: Lisinopril Other: See Comments Comment:cough Lyrica [Pregabalin] Swelling metoprolol succinate ER (TOPROL XL) 50 mg 24 hr tablet Take 1 tablet by mouth once daily. Hold if HR is less than 50 or systolic BP is less than 100 oxybutynin XL (DITROPAN XL) 5 mg 24 hr tablet Take 1 tablet by mouth once daily. metFORMIN (GLUCOPHAGE) 500 mg tablet Take 1 tablet by mouth daily with breakfast. rOPINIRole (REQUIP) 0.5 mg tablet Take 3 tablets by mouth daily at bedtime. fluticasone (FLONASE) 50 mcg/actuation nasal spray USE 1 SPRAY IN EACH NOSTRIL ONCE DAILY budesonide (PULMICORT) 0.5 mg/2 mL nebulizer solution Use 2 mL via nebulizer two times a day. gabapentin (NEURONTIN) 100 mg capsule Take 1 capsule by mouth three times a day for 180 days. hydroCHLOROthiazide 12.5 mg capsule Take 2 capsules by mouth once daily. sertraline (ZOLOFT) 50 mg tablet Take 1 tab once a day. arformoterol (BROVANA) 15 mcg/2 mL nebulizer solution Inhale 2 mL as instructed every 12 hours. May mix with Budesonide neb twice a day. ferrous sulfate 325 mg (65 mg iron) tablet Take 1 tablet by mouth twice daily with meals. baclofen 10 mg tablet Take 1 tablet by mouth three times daily. albuterol HFA (VENTOLIN HFA) 90 mcg/actuation inhaler Inhale 2 Puffs as instructed every 4 hours as needed for wheezing/shortness of breath. Lancets lancets Test blood sugar(s) 2 times daily. Dx: Type 2 DM - Controlled E11.9 Insulin: No (Patient taking differently: Test blood sugar(s) 2 times daily. Dx: Type 2 DM - Controlled E11.9 Insulin: No Takes blood sugar once daily) blood sugar diagnostic (BLOOD GLUCOSE TEST) test strip Test blood sugar(s) 2 times daily. Dx: Type 2 DM - Controlled E11.9 Insulin: No (Patient taking differently: Test blood sugar(s) 2 times daily. Dx: Type 2 DM - Controlled E11.9 Insulin: No Takes blood sugar once daily) COMPOUNDED PRESCRIPTION Oxygen via nasal canula 2 L N/C DX: copd and hypoxia (Patient taking differently: Oxygen via nasal canula 2 L N/C DX: copd and hypoxia Uses O2 at 3 l/m via NC) COMPOUNDED PRESCRIPTION Lightweight portable oxygen DX: copd, 2 L nc continuously (Patient taking differently: Lightweight portable oxygen DX: copd, 2 L nc continuously Uses at 3 l/m via NC) Social History Tobacco Use Smoking status: Former Packs/day: 0.50 Years: 45.00 Additional pack years: 0.00 Total pack years: 22.50 Types: Cigarettes Start date: 08/30/1966 Quit date: 01/29/2012 Years since quittin.6 Smokeless tobacco: Never Tobacco comments: Father smoked in childhood home. Spouse smoked briefly after marriage. Vaping Use Vaping Use: Never used Substance Use Topics Alcohol use: No Drug use: No Family History Problem Relation Age of Onset other (lymphoma) Mother COPD Father other (bone cancer) Father Ischemic Heart Disease Son 33 PAST SURGICAL HISTORY Procedure Laterality Date HYSTERECTOMY HX prolapse non ca, total TONSILLECTOMY HX I reviewed the past medical history, family history, social history and surgical history with changes noted above and updated in EMR. IMMUNIZATIONS Prevnar 13 - 2016 Pneumovax 23 - 2013 Influenza - xx COVID-19 - most recent 03/2022 ROS: CONSTITUTIONAL: No fevers, chills, nightsweats, unintended weight loss or significant weight gain HEENT: Persistent nasal congestion/sinus symptoms, postnasal drip CARDIOVASCULAR: No chest pain, palpitations, orthopnea, PND. Chronic edema PULM: See HPI GI: No dysphagia/odynophagia, problematic reflux NEURO: No new balance problems, peripheral weakness/paresthesias or numbness of concern. MUSC-SKEL: Polyarticular joint pain and immobility INTEGUMENTARY: No new skin changes or rashes PHYSICAL EXAMINATION: BP 128/76 (BP Site: Right Arm, BP Position: Sitting, BP Cuff Size: Regular Adult) Pulse 94 Resp 16 Wt 84.8 kg (187 lb) SpO2 94% BMI 32.10 kg/m O2: 3L NC Gen: No acute distress. Cooperative with examination. Obese female in wheelchair. HEENT: Normocephalic. Sclera, conjunctiva clear. Dentures. No thrush. Resp: No stridor, accessory respiratory muscle use, supra-sternal or intercostal retractions. No wheezes, crackles. Diminished breath sounds. CV: Regular rythm. Heart tones normal. Radial pulses normal. Ext: Warm and well perfused. No clubbing, cyanosis, edema. Skin: No rash, ecchymoses. Neuro: Mental status normal. Affect normal. No tremor. DATA: Oximetry, 09/30/2023 Oximetry with Ambulation Test for This Encounter O2 Device O2 Adapter NC O2 Flow SpO2% HR Activity Ft Walked (ft) Time (min) Avg Speed (MPH) R/A 88 95 Resting NC 2 94 72 Resting NC 2 88 95 Walking, usual pace 70 2.5 0.32 NC 3 96 78 Resting NC 3 95 93 Walking, usual pace 90 3 0.34 PFT, 01/11/2021 Spirometry indicates severe obstruction. CXR, 09/08/2023 IMPRESSION: Atelectasis or fibrosis at the left base is stable. Mild infrahilar infiltrate on the right. Follow-up recommended COMPARISON: 01/11/2021 RESULT: Lines, tubes, and devices: None. Lungs and pleura: Atelectasis or fibrosis at the left base is stable. Mild new infrahilar infiltrate on the right. No pneumothorax. Upper lungs are clear Cardiomediastinal silhouette: Stable cardiomediastinal silhouette. Bones and soft tissues: Unremarkable. CT chest, 08/28/2023 Echocardiogram, 01/18/2021 CONCLUSIONS: - Technically difficult exam due to suboptimal positioning, body habitus and COPD. - Exam indication: Shortness of Breath - The left ventricle is small. There is mild left ventricular hypertrophy. Left ventricular systolic function is normal. EF = 65 5% (2D biplane) Grade I left ventricular diastolic dysfunction. - The right ventricle is normal in size. Right ventricular systolic function is normal. - The patient has not had a prior CC echocardiographic exam for comparison. SSMENT/PLAN: 1. Pneumonia of both lower lobes due to infectious organism - ICD9: 486, ICD10: J18.9 (primary diagnosis) Symptomatically doing well. CXR without complete resolution. PCP ordered follow up CXR. 2. COPD, severe (HCC) - ICD9: 496, ICD10: J44.9 Patient previously did not tolerate the dry powder of Trelegy and has been doing nebulized medication. She is willing to try Breztri. Rinse mouth after each use to help prevent oral thrush. Albuterol HFA inhaler, 2 inhalations 10-15 minutes prior to activities associated with shortness of breath, and as needed for rescue relief of shortness of breath or wheezing, up to 4 times daily. - BUDESONIDE 160 MCG-GLYCOPYR 9 MCG-FORMOT 4.8 MCG/ACTUATION HFA INHALER 3. Chronic respiratory failure with hypoxia (HCC) - ICD9: 518.83, 799.02, ICD10: J96.11 Patient is compliant and benefits from supplemental oxygen. Based on oximetry today, patient requires 2L supplemental oxygen at rest and 3 L with exertion. Continue 3L supplemental oxygen at night. 4. Former cigarette smoker - ICD9: V15.82, ICD10: Z87.891 Former [id number] smoker having quit in 2011 with sequelae of severe COPD Patient is not a candidate for lung cancer screening based on her severe COPD, oxygen dependence, other comorbidities and debilitated state 5. Class 2 obesity - ICD9: 278.00, ICD10: E66.9 Weight loss advised. Portions of this documentation were copied and pasted from previous office visit notes in order to provide a cohesive continuity of the history. The note has been reviewed and edited and updated as necessary. Juhi Nolasco PA-C documented in this encounter [facility] 09-24-2023 Miscellaneous Notes Called and updated patient Cecile Hollins LPN September 24, 2023 3:48 PM Recheck urine in two weeks Called and spoke to patient, updated on results, does not recall discussing appointment with Dr Tu, patient will discuss with daughter that accompanies her at appointments. Patient states is hard of hearing and may have missed the discussion. Patient is not having any UTI symptoms at this time. Cecile Hollins LPN September 24, 2023 2:47 PM Anemia is stable. Stay on iron and see Dr Mae as we discussed. Urine shows bacteria and some red cells. Is she having any uti symptoms. documented in this encounter [facility] 09-24-2023 Miscellaneous Notes I have called and spoke to the patient several times to explain and talk over what we can do and what has happened with the testing and possibly getting her to see Dr. Todd out in [place] VS coming to [place]. She wants to go to to see [facility] and for the testing if it cannot be done at the [place] Location. I gave the patient the phone # to the [place] location but she stated it would not go through. I messaged Kasey to ask her to call the patient and schedule something for her. documented in this encounter [facility] 09-21-2023 Note HNO ID: [id number] Author: YANIV TODD MD Service: ? Author Type: Physician Type: Progress Notes Filed: 09/21/2023 17:58 Note Text: [facility] [place] DEPARTMENT OF VASCULAR SURGERY OUTPATIENT VISIT DATE September 21, 2023 OUTPATIENT VISIT TYPE CONSULTATION PRIMARY CARE PHYSICIAN: Jalyn Smith MD REFERRING PROVIDER: Jalyn Smith [address] [facility] [id number] Consult requested for an opinion regarding the evaluation and treatment of the above. My final impression and recommendations will be communicated back to the requesting physician by way of the shared medical record or letter via [place] mail. CHIEF COMPLAINT: Chronic TBAD (5,10) HISTORY OF PRESENT ILLNESS: Kandi Correia is a 78 year old female with a past medical and surgical history as detailed below who presents today for consultation for an opinion regarding management of the above stated chief complaint. Chronic TBAD managed medically since 2019 with medical history of COPD on home o2, HTN, MICHEL, DJD, she is largely nonambulatory utilizes a walker but is only able to mobilize several steps at a time. JERRELL with Dr. Perry 2020, Last CTA 04/18/22 showing max dTAAA degeneration of 5 cm with infrarenal AAA 3.6 cm. She recently underwent a noncontrasted CT scan of the abdomen pelvis on 08/28/2023 which showed her infrarenal aorta was 4.2 cm. The scan was obtained when she presented to the emergency department with abdominal chest and back pain that was aggravated with breathing and the patient was found to have a pneumonia. Otherwise she denies any ongoing chest back or abdominal pain. She has no rest pain to the lower extremities, or lower extremity edema. She is a former smoker no other diagnosed aneurysms and no history of CVA, TIA, or heart attack. MEDICATIONS: metoprolol succinate ER (TOPROL XL) 50 mg 24 hr tablet Take 1 tablet by mouth once daily. Hold if HR is less than 50 or systolic BP is less than 100 oxybutynin XL (DITROPAN XL) 5 mg 24 hr tablet Take 1 tablet by mouth once daily. metFORMIN (GLUCOPHAGE) 500 mg tablet Take 1 tablet by mouth daily with breakfast. rOPINIRole (REQUIP) 0.5 mg tablet Take 3 tablets by mouth daily at bedtime. fluticasone (FLONASE) 50 mcg/actuation nasal spray USE 1 SPRAY IN EACH NOSTRIL ONCE DAILY budesonide (PULMICORT) 0.5 mg/2 mL nebulizer solution Use 2 mL via nebulizer two times a day. gabapentin (NEURONTIN) 100 mg capsule Take 1 capsule by mouth three times a day for 180 days. hydroCHLOROthiazide 12.5 mg capsule Take 2 capsules by mouth once daily. sertraline (ZOLOFT) 50 mg tablet Take 1 tab once a day. arformoterol (BROVANA) 15 mcg/2 mL nebulizer solution Inhale 2 mL as instructed every 12 hours. May mix with Budesonide neb twice a day. ferrous sulfate 325 mg (65 mg iron) tablet Take 1 tablet by mouth twice daily with meals. baclofen 10 mg tablet Take 1 tablet by mouth three times daily. albuterol HFA (VENTOLIN HFA) 90 mcg/actuation inhaler Inhale 2 Puffs as instructed every 4 hours as needed for wheezing/shortness of breath. Lancets lancets Test blood sugar(s) 2 times daily. Dx: Type 2 DM - Controlled E11.9 Insulin: No (Patient taking differently: Test blood sugar(s) 2 times daily. Dx: Type 2 DM - Controlled E11.9 Insulin: No Takes blood sugar once daily) blood sugar diagnostic (BLOOD GLUCOSE TEST) test strip Test blood sugar(s) 2 times daily. Dx: Type 2 DM - Controlled E11.9 Insulin: No (Patient taking differently: Test blood sugar(s) 2 times daily. Dx: Type 2 DM - Controlled E11.9 Insulin: No Takes blood sugar once daily) COMPOUNDED PRESCRIPTION Oxygen via nasal canula 2 L N/C DX: copd and hypoxia (Patient taking differently: Oxygen via nasal canula 2 L N/C DX: copd and hypoxia Uses O2 at 3 l/m via NC) COMPOUNDED PRESCRIPTION Lightweight portable oxygen DX: copd, 2 L nc continuously (Patient taking differently: Lightweight portable oxygen DX: copd, 2 L nc continuously Uses at 3 l/m via NC) iv contrast (will be provided with radiology test) CTA ABD/PEL - No IV access, insert saline lock prior to the sedation, infusion, injection for imaging exam. Discontinue saline lock post exam. If Pt. has a central line or IVAD, may access for administration according to line specific nursing protocol. Once exam is complete flush line and de-access according to line specific nursing protocol in the CT contrast administration guidelines link. SOCIAL HISTORY: Social History Tobacco Use Smoking status: Former Packs/day: 0.50 Years: 45.00 Additional pack years: 0.00 Total pack years: 22.50 Types: Cigarettes Start date: 08/30/1966 Quit date: 01/29/2012 Years since quittin.6 Smokeless tobacco: Never Tobacco comments: Father smoked in childhood home. Spouse smoked briefly after marriage. Vaping Use Vaping Use: Never used Substance Use Topics Alcohol use: No Drug use: No PAST MEDICAL HISTORY: (more content not included)... [facility] 09-21-2023 History of Present illness Narrative Images from the original note were not included. [facility] [place] DEPARTMENT OF VASCULAR SURGERY OUTPATIENT VISIT DATE September 21, 2023 OUTPATIENT VISIT TYPE CONSULTATION PRIMARY CARE PHYSICIAN: Jalyn Smith MD REFERRING PROVIDER: Jalyn Smith [phone] [facility] [id number] Consult requested for an opinion regarding the evaluation and treatment of the above. My final impression and recommendations will be communicated back to the requesting physician by way of the shared medical record or letter via US mail. CHIEF COMPLAINT: Chronic TBAD (5,10) HISTORY OF PRESENT ILLNESS: Kandi Correia is a 78 year old female with a past medical and surgical history as detailed below who presents today for consultation for an opinion regarding management of the above stated chief complaint. Chronic TBAD managed medically since 2019 with medical history of COPD on home o2, HTN, MICHEL, DJD, she is largely nonambulatory utilizes a walker but is only able to mobilize several steps at a time. JERRELL with Dr. Perry 2020, Last CTA 04/18/22 showing max dTAAA degeneration of 5 cm with infrarenal AAA 3.6 cm. She recently underwent a noncontrasted CT scan of the abdomen pelvis on 08/28/2023 which showed her infrarenal aorta was 4.2 cm. The scan was obtained when she presented to the emergency department with abdominal chest and back pain that was aggravated with breathing and the patient was found to have a pneumonia. Otherwise she denies any ongoing chest back or abdominal pain. She has no rest pain to the lower extremities, or lower extremity edema. She is a former smoker no other diagnosed aneurysms and no history of CVA, TIA, or heart attack. MEDICATIONS: metoprolol succinate ER (TOPROL XL) 50 mg 24 hr tablet Take 1 tablet by mouth once daily. Hold if HR is less than 50 or systolic BP is less than 100 oxybutynin XL (DITROPAN XL) 5 mg 24 hr tablet Take 1 tablet by mouth once daily. metFORMIN (GLUCOPHAGE) 500 mg tablet Take 1 tablet by mouth daily with breakfast. rOPINIRole (REQUIP) 0.5 mg tablet Take 3 tablets by mouth daily at bedtime. fluticasone (FLONASE) 50 mcg/actuation nasal spray USE 1 SPRAY IN EACH NOSTRIL ONCE DAILY budesonide (PULMICORT) 0.5 mg/2 mL nebulizer solution Use 2 mL via nebulizer two times a day. gabapentin (NEURONTIN) 100 mg capsule Take 1 capsule by mouth three times a day for 180 days. hydroCHLOROthiazide 12.5 mg capsule Take 2 capsules by mouth once daily. sertraline (ZOLOFT) 50 mg tablet Take 1 tab once a day. arformoterol (BROVANA) 15 mcg/2 mL nebulizer solution Inhale 2 mL as instructed every 12 hours. May mix with Budesonide neb twice a day. ferrous sulfate 325 mg (65 mg iron) tablet Take 1 tablet by mouth twice daily with meals. baclofen 10 mg tablet Take 1 tablet by mouth three times daily. albuterol HFA (VENTOLIN HFA) 90 mcg/actuation inhaler Inhale 2 Puffs as instructed every 4 hours as needed for wheezing/shortness of breath. Lancets lancets Test blood sugar(s) 2 times daily. Dx: Type 2 DM - Controlled E11.9 Insulin: No (Patient taking differently: Test blood sugar(s) 2 times daily. Dx: Type 2 DM - Controlled E11.9 Insulin: No Takes blood sugar once daily) blood sugar diagnostic (BLOOD GLUCOSE TEST) test strip Test blood sugar(s) 2 times daily. Dx: Type 2 DM - Controlled E11.9 Insulin: No (Patient taking differently: Test blood sugar(s) 2 times daily. Dx: Type 2 DM - Controlled E11.9 Insulin: No Takes blood sugar once daily) COMPOUNDED PRESCRIPTION Oxygen via nasal canula 2 L N/C DX: copd and hypoxia (Patient taking differently: Oxygen via nasal canula 2 L N/C DX: copd and hypoxia Uses O2 at 3 l/m via NC) COMPOUNDED PRESCRIPTION Lightweight portable oxygen DX: copd, 2 L nc continuously (Patient taking differently: Lightweight portable oxygen DX: copd, 2 L nc continuously Uses at 3 l/m via NC) iv contrast (will be provided with radiology test) CTA ABD/PEL - No IV access, insert saline lock prior to the sedation, infusion, injection for imaging exam. Discontinue saline lock post exam. If Pt. has a central line or IVAD, may access for administration according to line specific nursing protocol. Once exam is complete flush line and de-access according to line specific nursing protocol in the CT contrast administration guidelines link. SOCIAL HISTORY: Social History Tobacco Use Smoking status: Former Packs/day: 0.50 Years: 45.00 Additional pack years: 0.00 Total pack years: 22.50 Types: Cigarettes Start date: 08/30/1966 Quit date: 01/29/2012 Years since quittin.6 Smokeless tobacco: Never Tobacco comments: Father smoked in childhood home. Spouse smoked briefly after marriage. Vaping Use Vaping Use: Never used Substance Use Topics Alcohol use: No Drug use: No PAST MEDICAL HISTORY: PAST MEDICAL HISTORY Diagnosis Date AAA (abdominal aortic aneurysm) ([facility]) Abdominal aortic aneurysm (AAA) without rupture ([facility]) 09/09/2023 Aneurysm, thoracic aortic ([facility]) Arthritis Centrilobular emphysema ([facility]) 10/01/2022 Chronic pain Chronic respiratory failure with hypoxia ([facility]) 05/24/2019 Chronic venous stasis dermatitis COPD (chronic obstructive pulmonary disease) ([facility]) Degenerative disc disease Depression Descending thoracic aortic dissection ([facility]) 12/22/[address] Perry (vascular) Dissection of thoracoabdominal aorta ([facility]) 09/21/2023 Fibromyalgia HTN (hypertension) OA (osteoarthritis) MICHEL (obstructive sleep apnea) not on CPAP Restless leg syndrome Thoracic aortic aneurysm ([facility]) 12/23/2018 PAST SURGICAL HISTORY: PAST SURGICAL HISTORY Procedure Laterality Date HYSTERECTOMY HX prolapse non ca, total TONSILLECTOMY HX FAMILY HISTORY FAMILY HISTORY Problem Relation Age of Onset other (lymphoma) Mother COPD Father other (bone cancer) Father Ischemic Heart Disease Son 33 ALLERGIES: ALLERGIES Allergen Reactions Lisinopril Other: See Comments cough Lyrica [Pregabalin] Swelling COMPLETE REVIEW OF SYSTEMS Comprehensive 11 system review of systems did not reveal any pertinent positives or negatives except per HPI PHYSICAL EXAM: VITALS: BP 128/80 Pulse 93 Ht 5' 4[Patient reports[ (1.63m) Wt 189 lb (85.7kg) SpO2 96[On 3L oxygen]% BMI 32.43 kg/(m^2). General: WDWN in NAD Skin: No lesions; normal color, turgor HEENT: NCAT PERRLA EOMI No icterus or adenopathy Carotid: Bruits none Pulmonary: Nonlabored on supplemental O2 Coronary: Normal S1, S2; no murmurs, rubs or JVD Abdomen: palpable non-tender, soft, non-distended Extremities: Normal range of motion, no edema or ulceration, non-prominent popliteal pulse Neurologic: Awake, alert and oriented. Vascular: Vascular: 2+ Pulses throughout popliteal, PT DIAGNOSTIC TESTS REVIEWED FOR TODAY'S VISIT: Most recent labs and imaging results CTA Reviewed: from 2021 Stable [place] type B dissection extending from the distal thoracic aorta to the origin of the left external iliac artery. Celiac trunk, superior mesenteric artery, renal arteries, inferior mesenteric artery extend off the true lumen and are patent. The left external iliac artery appears to extend partially off the false lumen. Moderate soft tissue plaque involving the false lumen. CARDIOPULMONARY STUDIES: The 10-year ASCVD risk score (Kandis DK, et al., 2019) is: 39.2% Values used to calculate the score: Age: 78 years Sex: Female Is Non- : No Diabetic: Yes Tobacco smoker: No Systolic Blood Pressure: 128 mmHg Is BP treated: Yes HDL Cholesterol: 40 mg/dL Total Cholesterol: 158 mg/dL ?7.5% (intermediate risk). Risk discussion: use moderate-intensity statins and increase to high-intensity with risk enhancers ?20% (high risk). 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 Her last CTA is from 2021, she did recently undergo a noncontrasted study that shows some further dilation of her infrarenal aorta. She denies any ongoing chest abdominal or back pain no lower extremity signs of malperfusion. We will obtain a updated CTA chest abdomen pelvis for surveillance. Given her significant comorbidities including oxygen dependent COPD and physical decompensation with limited ambulation she would be a very high risk for any type of future intervention. I had a discussion with the patient and her daughter regarding the nature and natural history of aortic dissections. All questions answered and patient expressed understanding and agreement with plan. PLAN and RECOMMENDATIONS: - Repeat CTA CAP return to clinic following imaging -Based on patient's 10-year ASCVD score of 39.2% recommend patient initiated on high-dose statin with continued blood pressure control at the direction of her PCP Jalyn Smith MD Thank you for the opportunity to contribute to Ms. Correia's care. Please do not hesitate to call with any questions or concerns. Yaniv Todd MD Vascular Surgery Staff Medical Decision Making: Problems: Moderate: 1+ chronic illnesses with change Data: Unique test result(s) reviewed: 1 Unique test(s) ordered: 1 Independent interpretation of test from other physician/QHCP Risk: Moderate: Drug management Medical Decision Making Level: 4 - Moderate documented in this encounter [facility] 09-21-2023 History of Present illness Narrative CDM Telephonic Outreach Provider Action/FYI Contacted for: Routine Telephonic Outreach Contact made with patient: Yes Patient identified by name and date of . Discussed care with patient Are you experiencing any new or worsening symptoms you need to talk about today? No Disease Specific Do you check your blood pressure at home? Yes, Enter readings: not reported Do you have new or worsening shortness of breath with activity? No Do you have new or worsening cough? No Do you have new or worsening wheezing? No Do you need to use your rescue (Albuterol) inhaler or nebulizer more often than normal? 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 Routed to: No Action Needed SAMMY Education Provided this Outreach: No Selene Anaya RN September 21, 2023 1:25 PM Care Coordination next call- COPD HTN DM Last CDM outreach contact: 09/21/23 - No new CDM concerns. Baseline: 07/20/23 ADL, FALL, GOAL due: 09/20/24 . Chronic disease goal - 10/15/22 -COPD - Need zones/management 05/06/23- HTN - Need review SDOH transportation and food insecurity completed: 01/11/23 documented in this encounter [facility] 09-15-2023 Miscellaneous Notes Pt states she is taking metoprolol as needed, needs refill documented in this encounter [facility] 09-14-2023 Miscellaneous Notes Patient MyChart message requesting the following refill Refill(s) Requested: Requested Prescriptions Pending Prescriptions Disp Refills oxybutynin XL (DITROPAN XL) 5 mg 24 hr tablet 90 tablet 1 Sig: Take 1 tablet by mouth once daily. ALLERGIES Allergen Reactions Lisinopril Other: See Comments cough Lyrica [Pregabalin] Swelling (home) [phone] (cell) Last Office Visit Date: 09/08/2023 Last [facility] Health Visit: Visit date not found Future Appointment: 03/09/2024 The patients preferred pharmacy has been captured for this encounter? yes Request is for script(s) to be escript to pharmacy. Cecile Hollins LPN documented in this encounter [facility] 09-12-2023 Miscellaneous Notes Requested Prescriptions Pending Prescriptions Disp Refills metFORMIN (GLUCOPHAGE) 500 mg tablet 30 tablet 0 Sig: Take 1 tablet by mouth daily with breakfast. Date of last office visit in primary care: 09/08/2023 Date of next office visit in primary care: 03/09/2024 Please advise. Thank you. Karel Gonzalez MA. documented in this encounter [facility] 09-10-2023 Miscellaneous Notes I called the patient and explained that she needed to be re-certified due to new insurance. She states that she DOES NOT have new insurance. Pt very worried that she is going to run out and does not want to have to pay out of pocket. Called [facility] back and they were made aware that nothing has changed. They reassured me that they had all of the documentation needed from our office. They are going to call pt today and scheduled for tomorrow. Judy Bagley MA Pt calling to see the status of her oxygen. Call to [facility]. They state that they were just informed that the patient has new insurance. That means that she needs to requalify. They require a recent SP02 that is 88% or below on room air. If SP02 is above that, they would need the additional testing. Please review and advise. Judy Bagley MA documented in this encounter [facility] 09-09-2023 Miscellaneous Notes Patient is overdue to see vascular for follow up. Was a patient of Dr Perry and was to be transferring over to Dr Darby. Can we please help patient get set up? documented in this encounter [facility] 09-09-2023 Miscellaneous Notes Patient and daughter were notified of below and verbalize understanding. Please place order for the follow up chest x-ray in a month. Agree. She had blood in the stools back then and is still anemic. Needs to see Dr Mae. Iron is expected to turn stool dark. That is not significant. Take it twice a day Also chest xray shows old scar in left base and slight pneumonia on right. That could be resolving. Recheck xray in one month. Call if any worsening cough or shortness of breath. Ct of her stomach on her hospital records also shows aneurysm in her stomach as well. It looks like she is also ovedue to see her vascular surgeon who also follows her chest. Daughter returns call with patient and results and provider message reviewed. Patient didn't follow up with Dr. Mae. Patient was taking iron once daily because stools were more black with iron supplement. Patient recently in the past week or so started taking iron supplements twice daily again. Lab appointment scheduled for two weeks. Daughter asking if patient should still follow up with Dr. Mae or could wait till after blood work completed in two weeks to confirm if still anemic. Advised to follow up with Dr. Mae as previously advised. Daughter still requesting PCP recommendation. Francoise Grady RN Call placed to patient with no answer. Voicemail left for patient to return call and ask to speak to a triage nurse to receive provider message. Francoise Grady RN Protein levels are low. Make sure eating adequate protein in the diet. Kidney function is slightly lower. Push fluids. Recheck labs in two weeks. Still anemic. Did she follow with Dr Mae as she was going to in January? Is she missing any iron doses? Will recheck labs in two weeks. documented in this encounter [facility] 09-08-2023 History of Present illness Narrative Radiology Service Progress Note PATIENT NAME: Kandi Correia DATE OF SERVICE: September 08, 2023 TIME: 3:01 PM PATIENT IDENTITY VERIFICATION COMPLETED USING TWO (2) IDENTIFIERS: Name and Date of confirmed by patient verbally. FALL SCREENING: Has the patient had 2 falls in the last year or 1 fall with injury or currently using an Ambulatory Assistive Device (Walker, Cane, Wheelchair, Crutches, etc.)? Yes, Patient High Risk for Falls What interventions were put in place to prevent falls during this visit? Instructed Patient to Call for Help if Needed, Offered Assistance with Transfers/Clothing, and Increased Observations by Caregivers PATIENT GENDER DATA: Female. status: : No status: NO. PATIENT RELEVANT IMPLANT DATA REVIEWED: Yes PATIENT PRESENTS WITH AN IMPLANTABLE OR ATTACHED PRESSER HAND: No RADIOLOGY DEPARTMENT: General X-ray: Exam(s) Completed: Chest X-Ray PERIPHERAL IV DATA: Not applicable SIGNED BY: RT Rashard(R) September 08, 2023 3:01 PM documented in this encounter [facility] 09-08-2023 History of Present illness Narrative Patient presents with: ER F/U HPI: Patient presents today for office visit for ER follow up. HOSPITAL/ER FOLLOW UP: Reason for visit: Abdominal pain Which facility: [facility] Date of visit: 08/28/23 Diagnosis: Pneumonia Testing done: CT abd/pelvis, Labs Treatment given: Levofloxacin 500 mg daily for 7 days Current symptoms: Still coughing some with some discomfort in left upper back. Breathing is a lot better. States it does not hurt to take deep breaths anymore. Feels much better. Minimal discomfort when coughing but much better. Has been using mucinex. Denies wheezing. Metoprolol decreased to 50 mg daily. To hold if HR is less than 50 of systolic BP is less than 100. Has not been monitoring her BP at home. Does have home cuff. Ct of abd done that showed bibasilar consolidation and mild leukocytosis of 12,000. Breathing is at baseline. No fever or chills. Sees Pulmonary in October. No abd pain or bowel changes. MEDICATIONS: Current Outpatient Medications Medication Sig metoprolol succinate ER (TOPROL XL) 50 mg 24 hr tablet Take 50 mg by mouth once daily. Hold if HR is less than 50 or systolic BP is less than 100 rOPINIRole (REQUIP) 0.5 mg tablet Take 3 tablets by mouth daily at bedtime. metFORMIN (GLUCOPHAGE) 500 mg tablet Take 1 tablet by mouth daily with breakfast. fluticasone (FLONASE) 50 mcg/actuation nasal spray USE 1 SPRAY IN EACH NOSTRIL ONCE DAILY budesonide (PULMICORT) 0.5 mg/2 mL nebulizer solution Use 2 mL via nebulizer two times a day. oxybutynin XL (DITROPAN XL) 5 mg 24 hr tablet Take 1 tablet by mouth once daily. gabapentin (NEURONTIN) 100 mg capsule Take 1 capsule by mouth three times a day for 180 days. hydroCHLOROthiazide 12.5 mg capsule Take 2 capsules by mouth once daily. sertraline (ZOLOFT) 50 mg tablet Take 1 tab once a day. arformoterol (BROVANA) 15 mcg/2 mL nebulizer solution Inhale 2 mL as instructed every 12 hours. May mix with Budesonide neb twice a day. ferrous sulfate 325 mg (65 mg iron) tablet Take 1 tablet by mouth twice daily with meals. baclofen 10 mg tablet Take 1 tablet by mouth three times daily. albuterol HFA (VENTOLIN HFA) 90 mcg/actuation inhaler Inhale 2 Puffs as instructed every 4 hours as needed for wheezing/shortness of breath. Lancets lancets Test blood sugar(s) 2 times daily. Dx: Type 2 DM - Controlled E11.9 Insulin: No (Patient taking differently: Test blood sugar(s) 2 times daily. Dx: Type 2 DM - Controlled E11.9 Insulin: No Takes blood sugar once daily) blood sugar diagnostic (BLOOD GLUCOSE TEST) test strip Test blood sugar(s) 2 times daily. Dx: Type 2 DM - Controlled E11.9 Insulin: No (Patient taking differently: Test blood sugar(s) 2 times daily. Dx: Type 2 DM - Controlled E11.9 Insulin: No Takes blood sugar once daily) COMPOUNDED PRESCRIPTION Oxygen via nasal canula 2 L N/C DX: copd and hypoxia (Patient taking differently: Oxygen via nasal canula 2 L N/C DX: copd and hypoxia Uses O2 at 3 l/m via NC) COMPOUNDED PRESCRIPTION Lightweight portable oxygen DX: copd, 2 L nc continuously (Patient taking differently: Lightweight portable oxygen DX: copd, 2 L nc continuously Uses at 3 l/m via NC) No current facility-administered medications for this visit. ALLERGIES: ALLERGIES Allergen Reactions Lisinopril Other: See Comments cough Lyrica [Pregabalin] Swelling PAST MEDICAL HISTORY Diagnosis Date Arthritis Chronic pain Chronic venous stasis dermatitis COPD (chronic obstructive pulmonary disease) (HCC) Degenerative disc disease Depression Descending thoracic aortic dissection (HCC) 12/22/[address] Perry (vascular) Fibromyalgia HTN (hypertension) OA (osteoarthritis) MICHEL (obstructive sleep apnea) not on CPAP Restless leg syndrome PAST SURGICAL HISTORY Procedure Laterality Date HYSTERECTOMY HX prolapse non ca, total TONSILLECTOMY HX FAMILY HISTORY Problem Relation Age of Onset other (lymphoma) Mother COPD Father other (bone cancer) Father Ischemic Heart Disease Son 33 Social History Tobacco Use Smoking status: Former Packs/day: 0.50 Years: 45.00 Additional pack years: 0.00 Total pack years: 22.50 Types: Cigarettes Start date: 08/30/1966 Quit date: 01/29/2012 Years since quittin.6 Smokeless tobacco: Never Tobacco comments: Father smoked in childhood home. Spouse smoked briefly after marriage. Vaping Use Vaping Use: Never used Substance Use Topics Alcohol use: No Drug use: No Reviewed current medications, allergies, past medical history, surgical history, family history and social history today. REVIEW OF SYSTEMS Over due for labs. Sugars have been stable. All other reviewed and negative other than HPI. HEALTH MAINTENANCE: Reviewed health maintenance issues today and recommended the following in detail. Hepatitis C Screening Never done BP Controlled (<130/80) Never done RSV Vaccine(1 - 1-dose 60+ series) Never done Covid-19 Vaccine(2022- season) due on 02/06/2023 Urine Albumin:Creatinine Ratio due on 03/20/2023 LDL Cholesterol due on 03/20/2023 Diabetic Foot Exam due on 03/20/2023 Lung Cancer Screening per pulmonary. HbA1C due on 04/02/2023 Dilated Retinal Exam -recommended. Advance Directive Discussion due on 06/08/2023 VITALS: BP 100/54 Pulse 70 Ht 162.6 cm (5' 4) Wt 86.2 kg (190 lb) SpO2 94% BMI 32.61 kg/m Last 4 Encounter Wt Readings: Date: Wt: 01/12/2023 93.7 kg (206 lb 9.6 oz) 12/10/2022 93.9 kg (207 lb) 10/01/2022 93.9 kg (207 lb) 07/17/2022 93 kg (205 lb) PHYSICAL EXAMINATION: General appearance: Well appearing, alert, in no acute distress, well-hydrated, well nourished. Skin: Skin color, texture, turgor normal, no suspicious rashes or lesions Head: Normocephalic, no masses, lesions, tenderness or abnormalities Lungs: breathing comfortably. Decreased breath sounds. No rales or rhonchi. Heart: RRR without murmur, gallop, or rubs. No ectopy Abdomen: Normal abdominal exam, Abdomen soft, non-tender. Bowel sounds normal. No masses, organomegaly Feet:Shoes and socks removed, normal distal pulses, sensitive to 10 gm monofilament, and has bilateral hammer toes. Trace edema. With venous stasis changes. ASSESSMENT/PLAN: 1. Bacterial pneumonia - ICD9: 482.9, ICD10: J15.9 (primary diagnosis) - recheck xray. Doing better. - XR CHEST 2V FRONTAL/LAT 2. Type 2 diabetes mellitus without complication, without long-term current use of insulin (HCC) - ICD9: 250.00, ICD10: E11.9 - check labs. - CBC + DIFF - COMP METABOLIC PANEL - HGB A1C - ALBUMIN/CREAT RATIO RND UR - LIPID PANEL, NONFASTING 3. Chronic respiratory failure with hypoxia (HCC) - ICD9: 518.83, 799.02, ICD10: J96.11 - continue oxygen. 4. MICHEL (obstructive sleep apnea) - ICD9: 327.23, ICD10: G47.33 - does not treat. Jalyn Smith MD documented in this encounter [facility] 2023 Miscellaneous Notes Called patient for update. Patient was seen at [facility] ED and diagnosed with pneumonia. Patient denies any needs from us at this time. Ashley Britt RN documented in this encounter [facility] 2023 Miscellaneous Notes See triage. Pt scheduled for L side back and stomach pain on 08/30. Please triage. Pt was referred to GI in January for Anemia, Blood in Stool and Diarrhea, pt declined. Pt was also referred to Pain Mgmt for back pain, referral was faxed to Dr. Paul's office. Please triage pt. Aj Hermosillo LPN documented in this encounter [facility] 08-28-2023 Discharge summary Note Date/Time August 28, 2023 3:12pm [facility] Medical Records Department [address] [place] [address] Emergency Department Summary 08/28/23 MR#: [id number] Acct: [id number] Name: KANDI CORREIA Rep #:[id number] : 1945 77 From: Juni Ho DO PCP: Dr. Jalyn Smith MD Status:REG E R Location: ED HPI HPI - GI History of Present Illness Chief Complaint: Abd Pain Narrative Narrative: 77-year-old female presenting with abdominal pain. Patient states she has had this for 2 weeks. Patient started on tramadol about a month ago. She has chronic pain and she states she is never been on this before. She states that she was not told it would cause any constipation but she does feel constipated. She has not tried anything to have a bowel movement. She states has not seen anybody for the abdominal pain. She states she did call the nurses line who initially told her to drink a lot of water and then when she called back they told her to go to the emergency room and to keep yourself NPO. Patient states he is never had any abdominal surgeries. Denies fevers or chills. Denies urinary or vaginal complaints. [facility] Medical History (Updated 08/28/23 @ 17:[address] Juni Ho DO) Aortic dissection, abdominal COPD (chronic obstructive pulmonary disease) Debility Degenerative disc disease, lumbar Depression Edema of both lower extremities Essential hypertension Fibromyalgia Generalized muscle weakness GERD (gastroesophageal reflux disease) Morbid obesity with BMI of 40.0-44.9, adult Muscle spasm MICHEL (obstructive sleep apnea) Osteoarthritis Right knee pain RLS (restless legs syndrome) Type 2 diabetes mellitus without complication Venous stasis ulcer of left lower leg with edema of left lower leg Weakness Home Medications albuterol sulfate 90 mcg/actuation aerosol inhaler 2 puff inhalation Q4H PRN Sob&/Or Wheezing 10/14/18 [History Last Taken Unknown] metformin 500 mg tablet 500 mg PO DAILY Blood sugar 10/14/18 [History Last Taken 12/10/22] ropinirole 0.5 mg tablet 1.5 mg PO QHS Restless leg 10/14/18 [History Last Taken 12/09/22] Oxygen #1 ea 10/27/18 [History Last Taken Unknown] ipratropium 0.5 mg-albuterol 3 mg (2.5 mg base)/3 mL nebulization soln 1 dose inhalation 4X/DAY Breathing 12/22/18 [History Last Taken Unknown] oxybutynin chloride 5 mg tablet 5 mg PO DAILY Bladder 07/25/21 [History Last Taken 12/10/22] sertraline 50 mg tablet 50 mg PO DAILY Mood 07/25/21 [History Last Taken 12/10/22] acetaminophen 500 mg tablet 1,000 mg (2 x 500 mg) PO Q6H PRN PRN Pain Score 1-3 #0 tabs 08/07/21 [Rx Last Taken Unknown] gabapentin 100 mg capsule 100 mg PO TIDCM nerve pain 30 days #90 caps 08/07/21 [Rx Last Taken 12/10/22] arformoterol 15 mcg/2 mL solution for nebulization 15 mcg inhalation Q12H breathing 12/11/22 [History Last Taken Unknown] hydrochlorothiazide 25 mg tablet 25 mg PO DAILY BP/fluid #0 tabs 12/15/22 [Rx Last Taken Unknown] metoprolol succinate 50 mg tablet,extended release 24 hr 50 mg PO DAILY BP/HR 30days #0 tabs 12/15/22 [Rx Last Taken Unknown] cephalexin 500 mg capsule 500 mg PO Q6 7 days #28 caps 01/02/23 [Rx Last Taken Unknown] doxycycline monohydrate 100 mg capsule 100 mg PO BID 7 days #14 caps 01/02/23 [Rx Last Taken Unknown] levofloxacin 500 mg tablet 500 mg PO DAILY #7 tabs 08/28/23 [Rx Last Taken Unknown] Allergy/AdvReac Type Severity Reaction Status Date / Time lisinopril AdvReac Intermediate cough Verified 08/28/23 14:15 pregabalin [From Lyrica] AdvReac Swelling Verified 08/28/23 14:15 Family History Mother Cancer lymphoma Father COPD (chronic obstructive pulmonary disease) Cancer bone Son Heart disease ischemic heart disease Surgical History History of appendectomy History of hysterectomy History of tonsillectomy Social History household members: none Smoking Status: Former smoker how long ago did patient quit smokin.5 years ago alcohol intake: current alcohol intake frequency: holidays/special occasions only substance use type: does not use caffeine: Yes Type: coffee Number of servings: 1 ROS ROS ED Constitutional Constitutional ED: Denies chills, fever(s) or sweats Eyes Eyes: Denies blurry vision or change in vision ENT ENT ED: Denies ear pain or sore throat Cardiovascular Cardiovascular: Denies chest pain, palpitations or racing heartbeat Respiratory/Chest Respiratory/Chest: Denies cough, dyspnea or sputum Gastrointestinal Gastrointestinal: Reports abdominal pain and constipation; Denies diarrhea, nausea or vomiting Genitourinary Genitourinary ED: Denies dysuria, hematuria or urinary frequency Musculoskeletal Musculoskeletal: Denies arthralgias, myalgias or neck pain Integumentary Denies abscess, Abrasions or rash Neurologic Neurologic: Denies headache(s), paresthesias or weakness Psychiatric Psychiatric: Denies anxiety, depression, suicidal ideation or suicidal thoughts Endocrine Endocrinology: Denies polydipsia or polyuria EXAM Physical Exam Const Vital Signs: 08/28/23 14:15 08/28/23 16:20 Temperature 98.7 F Temperature Source Temporal Pulse Rate 107 H 85 Respiratory Rate 24 H 27 H Blood Pressure 147/75 H 110/66 Blood Pressure Mean 99 80 Pulse Ox 93 92 Oxygen Delivery Method Nasal Cannula Nasal Cannula Oxygen Flow Rate (L/min) 2 6 Positive well nourished General Appearance ED: Negative for pallor HEENT Reports moist mucous membranes normocephalic and atraumatic Eyes PERRL and EOMs intact bilaterally General Eye ED: Negative for pale conjunctiva Cardio regular rate and regular rhythm GI Palpation: tender LLQ Neuro CN's II-XII intact bilaterally Sensorium / Orientation: alert Psych mental status grossly normal Skin General Skin Exam: Negative for jaundice or pallor MDM MDM MDM Narrative Medical decision making narrative: Patient presenting with abdominal pain. States she has had this for about 2 weeks. Patient denies fever, chills, nausea, vomiting. She does admit to constipation and no diarrhea. The patient abdominal exam is benign. Patient ciaran 2 L on arrival and she states she wears 2 to 3 L and sometimes 4 L at home asneeded. She is on this at baseline denies any chest pain or shortness of breathbut states she might have a cough. CBC was obtained to assess white blood cell count, hemoglobin, platelets. CMP to assess liver function renal function, electrolytes, glucose. Lipase to assess for pancreatitis. Patient medicated with morphine and Zofran. CT of the abdomen pelvis negative for acute abdominalfindings but does show what looks like bibasilar consolidation. Patient states she feels she is comfortable going home with oral antibiotics. She started on Levaquin here. On her chart it states that she is on 6 L nasal cannula 92% however she is currently 96% sleeping in the bed on 3 L. CBC shows mild leukocytosis 12.2. Hemoglobin stable 10.7. Platelets are normal at 263. Renalfunction and electrolytes at baseline with exception of potassium 3.1. Since patient feels comfortable going home we will discharge her home prescription andfollow-up with her PCP. Return precautions discussed. Impression: 1. Abdominal pain 2. Pneumonia 3. Constipation Lab Data Labs: Laboratory Results - last 24 hr 08/28/23 15:10 WBC 12.7 H RBC 3.65 L Hgb 10.7 L Hct 33.9 L MCV 92.9 MCH 29.3 MCHC 31.6 L RDW Std Deviation 45.3 H RDW Coeff of Stephenie 13.3 Plt Count 263 MPV 9.3 Immature Gran % (Auto) 0.500 Neut % (Auto) 84.7 H Lymph % (Auto) 1.8 L [place] % (Auto) 12.3 H Eos % (Auto) 0.1 Baso % (Auto) 0.6 Absolute Neuts (auto) 10.7 H Absolute Lymphs (auto) 0.23 L Nucleated RBC % 0 Differential Comment SCANNED Diff Path Review October Sodium 131 L Potassium 3.1 L Chloride 88 L Carbon Dioxide 37.0 H Anion Gap 6 BUN 22 H Creatinine 0.94 Est GFR (MDRD) Af Amer 74 Est GFR (MDRD) Non-Af 61 BUN/Creatinine Ratio 23.3 H Glucose 173 H Calcium 9.5 Total Bilirubin 0.70 AST 13 L ALT 13 Alkaline Phosphatase 88 Total Protein 7.2 Albumin 2.8 L Globulin 4.4 H Albumin/Globulin Ratio 0.6 L Lipase 14 Radiography Diagnostic Testing: Clinical Impression(s) from Imaging Studies Abdomen/Pelvis CT 08/28/23 16:10 IMPRESSION: No acute abnormalities in the abdomen or pelvis. Bibasilar lung consolidation. Unchanged 4.2 cm abdominal aortic aneurysm with extension into the left common iliac artery. Electronically Signed: Mono Farmer MD at 17:24 EDT , Discharge Plan Triage Chief Complaint: Abd Pain ED Provider: Juni Ho Dx/Rx/DC Orders Clinical Impression: Pneumonia Instructions: ED Abdominal Pain Unkn Cause Fem, ED Pneumonia (Adult) Prescriptions: New levofloxacin 500 mg tablet 500 mg PO DAILY Qty: 7 0RF No Action (DME) Oxygen 3 liters NC Qty: 1 Dose Instruction: As directed Patient Comments: says she uses 3-4L at home Rx Instructions: As directed metformin 500 mg tablet 500 mg PO DAILY albuterol sulfate 90 mcg/actuation HFA aerosol inhaler 2 puff INHALATION Q4H PRN (Reason: Sob &/Or Wheezing) ropinirole 0.5 mg tablet 1.5 mg PO QHS ipratropium-albuterol 0.5-3MG/3 solution for nebulization 1 dose inhalation 4X/DAY oxybutynin chloride 5 mg Tablet 5 mg PO DAILY sertraline 50 mg Tablet 50 mg PO DAILY acetaminophen 500 mg Tablet 1,000 mg PO Q6H PRN PRN (Reason: Pain Score 1-3) Qty: 0 0RF gabapentin 100 mg Capsule 100 mg PO TIDCM 30 Days Qty: 90 0RF doxycycline monohydrate 100 mg Capsule 100 mg PO BID 7 Days Qty: 14 0RF cephalexin 500 mg Capsule 500 mg PO Q6 7 Days Qty: 28 0RF arformoterol 15 mcg/2 mL solution for nebulization 15 mcg INHALATION Q12H hydrochlorothiazide 25 mg Tablet 25 mg PO DAILY Qty: 0 0RF metoprolol succinate 50 mg tablet extended release 24 hr 50 mg PO DAILY 30 Days Qty: 0 0RF Rx Instructions: Hold for heart less than 50 or systolic blood pressure less than 100 mmHg. Primary Care Provider: Jalyn Smith Referrals: Jalyn Smith MD [Primary Care Provider] - Disposition Disposition: Home, Self Care What to do if you have Problems For any increased pain, shortness of breath, bleeding, nausea or vomiting, chestpain, or any unexpected problems, contact your Primary Care Provider. Call [facility] ([phone]) or report to the closest Emergency Room. Call 911 if necessary. 08/28/23 174 <Electronically signed by Juni Ho DO> Cosigner Signature (if applicable): CC: Dr. Jalyn Smith MD ~ Signed [facility] Work Phone: [phone] 231-252603-22-2024 Miscellaneous Notes* Telephone Encounter - Maria Alejandra Leon RN - 08/28/2023 12:50 PM EDT Protocol recommends go to the ER now. Pts daughter is going to take her to the ER Care plan reviewed with patient. Patient voices understanding. Advised patient that if symptoms get worse to call 911. Reason for Disposition [1] SEVERE pain (e.g., excruciating) AND [2] present > 1 hour Answer Assessment - Initial Assessment Questions 1. LOCATION: Right lower abdomen. 2. RADIATION: The pain goes into left side and L back. 3. ONSET: Pain began a week ago. 4. SUDDEN: Gradual 5. PATTERN It is constant and staying the same. 6. SEVERITY: - MILD (1-3): Doesn't interfere with normal activities, abdomen soft and not tender to touch. - MODERATE (4-7): Interferes with normal activities or awakens from sleep, abdomen tender to touch. - SEVERE (8-10): Excruciating pain, doubled over, unable to do any normal activities. 7-/8/10, sometimes stabbing right now sitting there it's aching. 7. RECURRENT SYMPTOM: Denies having this stomach pain before. 8. CAUSE: Does not know what is causing the stomach pain.9. RELIEVING/AGGRAVATING FACTORS: Bending makes it worse. 10. OTHER SYMPTOMS: Pt repots back pain, and diarrhea. Pt denies fever, urination pain, or vomiting. Pt takes an iron pill daily and it makes her Bms black. She took an Imodium last night so has not had a BM today. 11. : Postmenopausal. Protocols used: Abdominal Pain - [id number] [facility] History of Present illness Narrative* Selene Anaya RN - 08/24/2023 3:13 PM EDT CD Telephonic Outreach Provider Action/FYI Contacted for: Routine Telephonic Outreach Contact made with patient: Yes Patient identified by name and date of . Discussed care with patient Are you experiencing any new or worsening symptoms you need to talk about today? No Disease Specific Do you check your blood pressure at home? Yes, Enter readings: not reported Do you have new or worsening shortness of breath with activity? Yes Do you have new or worsening cough? No Do you have new or worsening wheezing? No Do you need to use your rescue (Albuterol) inhaler or nebulizer more often than normal? 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 Routed to: No Action Needed SAMMY Education Provided this Outreach: No Selene Anaya RN August 24, 2023 3:20 PM Care Coordination next call- COPD HTN DM Last CDM outreach contact: 07/20/23 - No concerns. Baseline: 07/20/23 ADL, FALL, GOAL due: 10/16/23 . Chronic disease goal - 10/15/22 -COPD - Need zones/management 05/06/23- HTN - Need review Goal assessment: 08/17/23 SDOH transportation and food insecurity completed: 01/11/23 * Selene Anaya RN - 08/24/2023 11:44 AM EDT [facility] Telephonic Outreach Provider Action/FYI Contacted for: Routine Telephonic Outreach Contact made with patient: No, left message. Selene Anaya RN August 24, 2023 11:47 AM documented in this encounterBlanchard Valley Health System03-18-2024 Miscellaneous Notes* Telephone Encounter - Casandra Burrell LPN - 08/24/2023 3:09 PM EDT Patient has been identified by name and date of : Yes, Patient phones for refill(s): Requested Prescriptions Pending Prescriptions Disp Refills rOPINIRole (REQUIP) 0.5 mg tablet 90 tablet 0 Sig: Take 3 tablets by mouth daily at bedtime. Date of last office visit in primary care: 01/12/2023 Date of next office visit in primary care: Visit date not found Please advise. Thank you. Casandra Burrell LPN. documented in this encounterBlanchard Valley Health System03-11-2024 History of Present illness Narrative* Selene Anaya RN - 08/17/2023 5:17 PM EDT [facility] Telephonic Outreach Provider Action/FYI Contacted for: Routine Telephonic Outreach Contact made with patient: No, left message. Selene Anaya RN August 17, 2023 5:22 PM Care Coordination next call- COPD HTN DM lvm x 2 Last CDM outreach contact: 03/27 - No concerns. Baseline: 07/20/23 ADL, FALL, GOAL due: 10/16/23 . Chronic disease goal - 10/15/22 -COPD - Need zones/management 05/06/23- HTN - Need review Goal assessment: 3/11/24 SDOH transportation and food insecurity completed: 01/11/23 * Selene Anaya RN - 08/17/2023 4:28 PM EDT [facility] Telephonic Outreach Provider Action/FYI Contacted for: Routine Telephonic Outreach Contact made with patient: No, left message. Selene Anaya RN August 17, 2023 4:31 PM documented in this encounterBlanchard Valley Health System02-26-2024 Miscellaneous Notes* Telephone Encounter - Casandra Kinsey APRN.[email or web address] - 08/03/2023 3:33 PM EST Please get pt. In for an appt. RUSSELL. She was last seen in January. Was to follow up in 3 months. Significant anemia likely the reason for restless legs. Needs seen and updated labs. 30 days filled of prescriptions. * Telephone Encounter - Kalpana Sharif LPN - 08/03/2023 3:19 PM EST Patient has been identified by name and date of : Yes Requested Prescriptions Pending Prescriptions Disp Refills metFORMIN (GLUCOPHAGE) 500 mg tablet 90 tablet 1 Sig: Take 1 tablet by mouth daily with breakfast. metoprolol succinate ER (TOPROL XL) 50 mg 24 hr tablet 270 tablet 1 Sig: Take 3 tablets by mouth once daily. rOPINIRole (REQUIP) 0.5 mg tablet 270 tablet 1 Sig: Take 3 tablets by mouth daily at bedtime. RX INSTRUCTIONS: Patient aware RX will be sent to pharmacy. No need to notify patient. No visit scheduled. JERRELL 01/12/23 Kalpana Sharif LPN documented in this encounterBlanchard Valley Health System02-16-2024 History of Present illness Narrative* Zackery Mayfield MD - 07/24/2023 10:30 AM EST Images from the original note were not included. . [facility] [place] Note Patient name: Kandi Correia PCP: Jalyn Smith MD CC: Follow-up COPD HPI: Kandi Correia 77 year old female former [id number] smoker having quit in 2011 with PMH significant for obesity, HTN, fibromyalgia, descending aortic aneurysm with dissection, MICHEL not on CPAP,severe COPD (FEV1 32%), chronic hypoxemic respiratory failure presenting for follow-up visit. Current inhaled therapy consists of budesonide, Brovana and DuoNeb. She had been on Trelegy Ellipta in the past but developed significant dysphonia and throat issues necessitating discontinuation. Today she has persistent dyspnea on exertion. Her daughter states that she sounds like Marietta Diggs. Patient admits that she has only been using her nebulized treatments once daily. She sleeps till a.m. and t hen goes to bed so she has been following the strict 12-hour dosing interval. She DuoNeb and has not used it in a long time. She has not been recently ill with upper respiratory infection or lower respiratory infection and has not required hospitalization. She denies cough, sputum production. She does have occasional wheezing. She is not a candidate for lung cancer screening based on her debility, severity of her underlying lung disease and oxygen dependence. DATA: Labs: Component Ref Range & Units 6 mo ago (01/12/23) WBC 3.70 - 11.00 k/uL 6.44 RBC 3.90 - 5.20 m/uL 3.43 Low Hemoglobin 11.5 - 15.5 g/dL 10.7 Low Hematocrit 36.0 - 46.0 % 34.6 Low MCV 80.0 - 100.0 fL 100.9 High MCH 26.0 - 34.0 pg 31.2 MCHC 30.5 - 36.0 g/dL 30.9 RDW-CV 11.5 - 15.0 % 13.2 Platelet Count 150 - 400 k/uL 230 MPV 9.0 - 12.7 fL 10.1 Neutrophils % % 68.8 Abs Neut 1.45 - 7.50 k/uL 4.43 Lymphocytes % % 14.6 Abs Lymph 1.00 - 4.00 k/uL 0.94 Low Monocytes % % 12.6 Abs [place] <0.87 k/uL 0.81 Eosinophils % % 3.1 Abs Eosin <0.46 k/uL 0.20 Basophils % % 0.6 Abs Baso <0.11 k/uL 0.04 Immature Granulocytes % % 0.3 Abs Immature Gran <0.10 k/uL <0.03 NRBC /100 WBC 0.0 Absolute nRBC <0.01 k/uL <0.01 Diff Type Auto Imaging / Diagnostic Studies: Last CTA chest 04/2022: Stable dissection and no suspicious pulmonary lesions PAST MEDICAL HISTORY Diagnosis Date Arthritis Chronic pain Chronic venous stasis dermatitis COPD (chronic obstructive pulmonary disease) ([facility]) Degenerative disc disease Depression Descending thoracic aortic dissection ([facility]) 12/22/[address] Perry (vascular) Fibromyalgia HTN (hypertension) OA (osteoarthritis) MICHEL (obstructive sleep apnea) not on CPAP Restless leg syndrome ALLERGIES Allergen Reactions Lisinopril Other: See Comments cough Lyrica [Pregabalin] Swelling budesonide (PULMICORT) 0.5 mg/2 mL nebulizer solution Use 2 mL via nebulizer two times a day. sertraline (ZOLOFT) 50 mg tablet Take 1 tab once a day. arformoterol (BROVANA) 15 mcg/2 mL nebulizer solution Inhale 2 mL as instructed every 12 hours. Maymix with Budesonide neb twice a day. fluticasone (FLONASE) 50 mcg/actuation nasal spray USE 1 SPRAY IN EACH NOSTRIL ONCE DAILY metFORMIN (GLUCOPHAGE) 500 mg tablet Take 1 tablet by mouth daily with breakfast. metoprolol succinate ER (TOPROL XL) 50 mg 24 hr tablet Take 3 tablets by mouth once daily. rOPINIRole (REQUIP) 0.5 mg tablet Take 3 tablets by mouth daily at bedtime. oxybutynin XL (DITROPAN XL) 5 mg 24 hr tablet Take 1 tablet by mouth once daily. gabapentin (NEURONTIN) 100 mg capsule Take 1 capsule by mouth three times a day for 180 days. hydroCHLOROthiazide 12.5 mg capsule Take 2 capsules by mouth once daily. ferrous sulfate 325 mg (65 mg iron) tablet Take 1 tablet by mouth twice daily with meals. baclofen 10 mg tablet Take 1 tablet by mouth three times daily. albuterol HFA (VENTOLIN HFA) 90 mcg/actuation inhaler Inhale 2 Puffs as instructed every 4 hours asneeded for wheezing/shortness of breath. Lancets lancets Test blood sugar(s) 2 times daily. Dx: Type 2 DM - Controlled E11.9 Insulin: No (Patient taking differently: Test blood sugar(s) 2 times daily. Dx: Type 2 DM - Controlled E11.9 Insulin: No Takes blood sugar once daily) blood sugar diagnostic (BLOOD GLUCOSE TEST) test strip Test blood sugar(s) 2 times daily. Dx: Type 2 DM - Controlled E11.9 Insulin: No (Patient taking differently: Test blood sugar(s) 2 times daily. Dx: Type 2 DM - Controlled E11.9 Insulin: No Takes blood sugar once daily) COMPOUNDED PRESCRIPTION Oxygen via nasal canula 2 L N/C DX: copd and hypoxia (Patient taking differently: Oxygen via nasal canula 2 L N/C DX: copd and hypoxia Uses O2 at 3 l/m via NC) COMPOUNDED PRESCRIPTION Lightweight portable oxygen DX: copd, 2 L nc continuously (Patient taking differently: Lightweight portable oxygen DX: copd, 2 L nc continuously Uses at 3 l/m via NC) Social History Tobacco Use Smoking status: Former Packs/day: 0.50 Years: 45.00 Additional pack years: 0.00 Total pack years: 22.50 Types: Cigarettes Start date: 08/30/1966 Quit date: 01/29/2012 Years since quittin.4 Smokeless tobacco: Never Tobacco comments: Father smoked in childhood home. Spouse smoked briefly after marriage. Vaping Use Vaping Use: Never used Substance Use Topics Alcohol use: No Drug use: No FAMILY HISTORY Problem Relation Age of Onset other (lymphoma) Mother COPD Father other (bone cancer) Father Ischemic Heart Disease Son 33 PAST SURGICAL HISTORY Procedure Laterality Date HYSTERECTOMY HX prolapse non ca, total TONSILLECTOMY HX PMH, Social history, family history and surgical history reviewed and updated in EMR REVIEW OF SYSTEMS: CONSTITUTIONAL: No fevers, chills, nightsweats, unintended weight loss or significant weight gain HEENT: Persistent nasal congestion/sinus symptoms, postnasal drip CARDIOVASCULAR: No chest pain, palpitations, orthopnea, PND. Chronic edema PULM: See HPI GI: No dysphagia/odynophagia, problematic reflux NEURO: No new balance problems, peripheral weakness/paresthesias or numbness of concern. MUSC-SKEL: Polyarticular joint pain and immobility PSY: No concerns regarding depression, anxiety INTEGUMENTARY: No rashes PHYSICAL EXAMINATION: SpO2 98[3 L]% BP 120/80, pulse 73, RR 17 General Appearance: Obese female in wheelchair. Skin: Skin color, texture, turgor normal, no suspicious rashes or lesions. Head: Normocephalic, no masses, lesions, tenderness or abnormalities. Eyes: Sclera, conjunctiva normal. Oropharynx: Dentures, no thrush Chest wall: Kyphosis. Neck: No JVD, masses or adenopathy. Lungs: Not labored, normal to percussion, diminished breath sounds. No wheezing or crackles. Heart: Regular rate and rhythm, no murmurs or gallops. Extremities: Edema with chronic venous stasis dermatitis, no clubbing. Assessment/Plan: 1. Severe COPD -Her current supply of nebulized treatments then transition to [facility] 2. Chronic hypoxemic respiratory failure -Patient is compliant with and benefits from supplemental oxygen -Needs to remember to breathe through her nose 3. Former cigarette smoker -Former [id number] smoker having quit in 2011 with sequelae of severe COPD -Patient is not a candidate for lung cancer screening based on her severe COPD, oxygen dependence, other comorbidities and debilitated state 4. Class II obesity -BMI 35 -Weight loss advised Zackery Mayfield MD [facility] [place] documented in this encounterBlanchard Valley Health System02-12-2024 History of Present illness Narrative* Selene Anaya, SANDRA - 07/20/2023 12:47 PM EST [facility] Telephonic Outreach Provider Action/FYI Contacted for: Routine Telephonic Outreach Contact made with patient: Yes Patient identified by name and date of . Discussed care with patient Are you experiencing any new or worsening symptoms you need to talk about today? No Disease Specific Do you check your blood pressure at home? Yes, Enter readings: not reported Every other day Do you have new or worsening shortness of breath with activity? No SOB with exertion. Oxygen 3 L/NC 24/7 Do you have new or worsening cough? No Occasional cough Do you have new or worsening wheezing? No Do you need to use your rescue (Albuterol) inhaler or nebulizer more often than normal? No Albuterol inhaler PRN Nebulizer BID Lives with daughter. Feels safe. 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 Routed to: No Action Needed SAMMY Education Provided this Outreach: No Selene Anaya RN July 20, 2023 12:53 PM Care Coordination next call- COPD HTN DM Last CDM outreach contact: 03/27 - No concerns. Baseline: 07/20/23 ADL, FALL, GOAL due: 10/16/23 . Chronic disease goal - 10/15/22 -COPD - Need zones/management 05/06/23- HTN - Need review SDOH transportation and food insecurity completed: 01/11/23 documented in this encounterBlanchard Valley Health System02-08-2024 History of Present illness Narrative* Selene Anaya RN - 07/16/2023 11:59 AM EST [facility] Telephonic Outreach Provider Action/FYI Contacted for: Routine Telephonic Outreach Contact made with patient: No, left message. Selene Anaya RN July 16, 2023 12:03 PM Care Coordination next call- COPD HTN DM lvm x 5 Last CDM outreach contact: 03/27 - No concerns. Pain to shoulders and back, knees from OA. Follows with Pain Management Appt 02/18- started on Buprenorphine transdermal Routed to SW; daughter caregiver and wants to know if she can hire daughter to be paid Baseline: 01/12/23 ADL, FALL, GOAL due: 10/16/23 . Chronic disease goal - 10/15/22 -COPD - Need zones/management 05/06/23- HTN - Need review SDOH transportation and food insecurity completed: 01/11/23 documented in this encounterBlanchard Valley Health System12-11-2023 Miscellaneous Notes* Telephone Encounter - Roseann Schmitz RN - 05/18/2023 10:48 AM EST Patient has been identified by name and date of : Yes Requested Prescriptions Pending Prescriptions Disp Refills budesonide (PULMICORT) 0.5 mg/2 mL nebulizer solution 360 mL 3 Sig: Use 2 mL via nebulizer two times a day. RX INSTRUCTIONS: Patient aware RX will be sent to pharmacy. No need to notify patient. Roseann Schmitz RN documented in this encounterBlanchard Valley Health System11-27-2023 Miscellaneous Notes* Telephone Encounter - Kalpana Sharif LPN - 05/04/2023 11:57 AM EST Patient has been identified by name and date of : Yes Requested Prescriptions Pending Prescriptions Disp Refills metFORMIN (GLUCOPHAGE) 500 mg tablet 90 tablet 1 Sig: Take 1 tablet by mouth daily with breakfast. metoprolol succinate ER (TOPROL XL) 50 mg 24 hr tablet 270 tablet 1 Sig: Take 3 tablets by mouth once daily. rOPINIRole (REQUIP) 0.5 mg tablet 270 tablet 1 Sig: Take 3 tablets by mouth daily at bedtime. RX INSTRUCTIONS: Mychart request Kalpana Sharif LPN documented in this encounterBlanchard Valley Health System11-15-2023 History of Present illness Narrative* Juliann Carrillo RN - 04/22/2023 4:07 PM EST [facility] Telephonic Outreach Provider Action/FYI Contacted for: Routine Telephonic Outreach Contact made with patient: No, left message. Juliann Worrell RN April 28, 2023 5:53 PM documented in this encounterBlanchard Valley Health System10-23-2023 History of Present illness Narrative* Lizett Restrepo MSW - 03/30/2023 1:09 PM EDT Patient spoke with Vin regarding any programs to help with paying her daughter that moved in to takecare of patient in her home. Sw noted that she is not aware of any grants for this. Sw noted patient could contact [facility] [employer] and see if they know of any services. Vin noted [facility] has Passport program for those on Medicaid and they help cover cost of home college and career counselor. Sw noted this information as [facility] may then have resource knowledge of any type of assistance for daughter as patient caregiver. Patient thanked Vin for information and will reach out to [facility] [employer]. documented in this encounterBlanchard Valley Health System10-20-2023 History of Present illness Narrative* Selene Anaya RN - 03/27/2023 3:14 PM EDT [facility] Telephonic Outreach Provider Action/FYI VIN Pt daughter moved in with her and is her primary caregiver Pt would like to know if there is a arcadio that she is eligible for to provide financial payment to her daughter? Thank you Contacted for: Routine Telephonic Outreach Contact made with patient: Yes Patient identified by name and date of . Discussed care with patient Are you experiencing any new or worsening symptoms you need to talk about today? No Disease Specific Do you check your blood pressure at home? Yes, Enter readings: none reported Do you have new or worsening shortness of breath with activity? No Do you have new or worsening cough? No Do you have new or worsening wheezing? No Do you need to use your rescue (Albuterol) inhaler or nebulizer more often than normal? 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 Routed to: Primary Care Social Work Pt wondering if there is a arcadio to help pay her daughter who moved into her home to care for SAMMY Education Provided this Outreach: No Selene Anaya RN March 27, 2023 3:23 PM Care Coordination next call- COPD DM Last CDM outreach contact: 03/27 - No concerns. Pain to shoulders and back, knees from OA. Follows with Pain Management Next appt 02/18- started on Buprenorphine transdermal Routed to VIN see fyi Baseline: 01/12/23 ADL, FALL, GOAL due: 10/16/23 . Chronic disease goal - 10/15/22 -copd SDOH transportation and food insecurity completed: 01/11/23 * Selene Anaya RN - 03/27/2023 12:30 PM EDT [facility] Telephonic Outreach Provider Action/FYI Contacted for: Routine Telephonic Outreach Contact made with patient: No, left message. Selene Anaya RN March 27, 2023 12:32 PM Care Coordination next call- COPD DM lvm x 3 Last [facility] outreach contact: 02/10 -COPD No concerns. Pain to shoulders and back, knees from OA. Follows with Pain Management Next appt 02/18 Baseline: 01/12/23 ADL, FALL, GOAL due: 10/16/23 . Chronic disease goal - 10/15/22 -copd SDOH transportation and food insecurity completed: 01/11/23 documented in this encounterBlanchard Valley Health System10-20-2023 Miscellaneous Notes* Telephone Encounter - Stacey Rod - 03/27/2023 2:46 PM EDT Patient has been identified by name and date of : Yes Requested Prescriptions Pending Prescriptions Disp Refills gabapentin (NEURONTIN) 100 mg capsule 270 capsule 3 Sig: Take 1 capsule by mouth three times a day for 180 days. hydroCHLOROthiazide 12.5 mg capsule 180 capsule 1 Sig: Take 2 capsules by mouth once daily. sertraline (ZOLOFT) 50 mg tablet 90 tablet 1 Sig: Take 1 tab once a day. JERRELL:01/12/23 NOV:04/27/23 RX INSTRUCTIONS: Patient aware RX will be sent to pharmacy. No need to notify patient. Stacey Rod documented in this encounterBlanchard Valley Health System10-05-2023 Miscellaneous Notes* Telephone Encounter - Juhi Nolasco PA-C - 03/12/2023 1:21 PM EDT Refilled script johnnab * Telephone Encounter - SterlignAlma joseStaci NICOLAS - 03/12/2023 1:13 PM EDT Patient phones requesting refills as follows: JERRELL: 01/19/23 Requested Prescriptions Pending Prescriptions Disp Refills arformoterol (BROVANA) 15 mcg/2 mL nebulizer solution 360 mL 2 Sig: Inhale 2 mL as instructed every 12 hours. May mix with Budesonide neb twice a day. Please review and advise. Staci Katzdamon VALENZUELA documented in this encounterBlanchard Valley Health System09-05-2023 History of Present illness Narrative* Selene Anaya RN - 02/10/2023 1:51 PM EDT M Telephonic Outreach Provider Action/FYI Contacted for: Routine Telephonic Outreach Contact made with patient: Yes Patient identified by name and date of . Discussed care with patient Are you experiencing any new or worsening symptoms you need to talk about today? No Disease Specific Do you check your blood pressure at home? Yes, Enter readings: 120/70 Do you have new or worsening shortness of breath with activity? No Do you have new or worsening cough? No Do you have new or worsening wheezing? No Do you need to use your rescue (Albuterol) inhaler or nebulizer more often than normal? 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 Routed to: No Action Needed SAMMY Education Provided this Outreach: No Selene Anaya RN February 10, 2023 2:00 PM Care Coordination next call- Last CD[facility] outreach contact: 02/10 -COPD No concerns. Pain to shoulders and back, knees from OA. Follows with Pain Management Next appt 02/18 Baseline: 01/12/23 ADL, FALL, GOAL due: 10/16/23 . Chronic disease goal - 10/15/22 -copd SDOH transportation and food insecurity completed: 01/11/23 documented in this encounterBlanchard Valley Health System2023 Miscellaneous Notes* Telephone Encounter - Kalpana Sharif LPN - 02/05/2023 9:34 AM EDT Completed and faxed back. * Telephone Encounter - Aj Hermosillo LPN - 02/04/2023 3:20 PM EDT Type of form: PT eval from [facility] Form received via fax When form is completed, Fax form to [phone] Form has been forwarded to Physician Mailbox: Dr. Luis Hermosillo LPN documented in this encounterBlanchard Valley Health System08-17-2023 History of Present illness Narrative* Marian Real - 01/22/2023 1:34 PM EDT POPULATION HEALTH NAVIGATION OUTREACH Action/[facility] [place] Support: Called pt to schedule an appt in Pain Management. Lvm for pt to call [phone] for scheduling Patient Identified by Name and : NO Outreach Outcome/Action Unable to reach patient: Left message Did you use a PCP flex slot to schedule this appointment? No Reason for Outreach Care Gap or Scheduling/Wellness visits Payer: Payor: [employer] MEDICARE / Plan: [employer] MEDICARE PPO / Product Type: PPO / Care Gap Reviewed:: Specialty Scheduling Reminder: Reminder note to check Health Maintenance for items below Health Maintenance items due: HEPATITIS C SCREENING Never done COVID-19 VACCINE(5 - Moderna series) due on 07/21/2022 Navigation Signature: Marian Real January 22, 2023 1:34 PM documented in this encounterBlanchard Valley Health System08-16-2023 Miscellaneous Notes* Telephone Encounter - Maria Alejandra Leon RN - 01/21/2023 4:14 PM EDT Adan RN with [facility] called and is notified of providers message and instructions. He voices understanding. Maria Alejandra Leon, RN * Telephone Encounter - Jalyn Smith MD - 01/21/2023 4:10 PM EDT ok * Telephone Encounter - Francoise Grady RN - 01/21/2023 3:51 PM EDT Adan RN with [facility] calls to let provider know that he had a missed visit with patient today because patient was establishing care with Dr. Paul. Aurelia was going to be discharging from services but asking for verbal order to continue services for 1 wk 2 to assess back pain next week and plan to discharge the following week on Thursday if pain is under control. Adan requests verbal order be called to [phone] if provider agrees. Francoise Grady RN documented in this encounterBlanchard Valley Health System08-14-2023 Instructions* Patient Instructions* Juhi Nolasco PA-C - 01/19/2023 2:30 PM EDT 9 am: Arformoterol (Brovana) + Budesonide (Pulmicort) mixed together via nebulizer 9 pm: Arformoterol (Brovana) + Budesonide (Pulmicort) mixed together via nebulizer You may use DuoNebs (Ipratropium/albuterol) throughout the day every 4 hours as needed for wheezing/SOB documented in this encounterBlanchard Valley Health System08-14-2023 History of Present illness Narrative* Juhi Nolasco PA-C - 01/19/2023 2:00 PM EDT Images from the original note were not included. Patient: Kandi Correia PCP: Jalyn Smith MD CC: follow up HPI: Kandi Correia 77 year old obese female former smoker for 45 years having quit in 2011 with PMH significant for HTN, fibromyalgia, descending aortic aneurysm with dissection, MICHEL not on CPAP andCOPD (FEV1 0.68 L 32%) on chronic oxygen. Patient recently admitted to [facility] from 12/10 - 12/15 for UTI and debility. She was not having issues with her breathing. Current maintenance therapy consists of nebulized budesonide with Brovana twice daily and Duonebs as needed. However, she has not been taking the budesonide. She states that someone told her to stop it. I do not see a recordof this from our office. Today, she reports daily cough productive of white/clear sputum. No hemoptysis. Occasional wheezing. Exertional dyspnea with minimal effort. Ambulates with walker at home. Limited by knee pain/arthritis. PAST MEDICAL HISTORY Diagnosis Date COPD (chronic obstructive pulmonary disease) ([facility]) Degenerative disc disease Depression Descending thoracic aortic dissection ([facility]) 12/22/[address] Perry (vascular) Fibromyalgia HTN (hypertension) OA (osteoarthritis) MICHEL (obstructive sleep apnea) not on CPAP Restless leg syndrome Allergies: Lisinopril Other: See Comments Comment:cough Lyrica [Pregabalin] Swelling ferrous sulfate 325 mg (65 mg iron) tablet Take 1 tablet by mouth twice daily with meals. doxycycline monohydrate (MONODOX) 100 mg capsule Take by mouth. baclofen 10 mg tablet Take 1 tablet by mouth three times daily. hydroCHLOROthiazide 12.5 mg capsule Take 2 capsules by mouth once daily. sertraline (ZOLOFT) 50 mg tablet Take 1 tab once a day. albuterol HFA (VENTOLIN HFA) 90 mcg/actuation inhaler Inhale 2 Puffs as instructed every 4 hours asneeded for wheezing/shortness of breath. oxybutynin XL (DITROPAN XL) 5 mg 24 hr tablet Take 1 tablet by mouth once daily. arformoterol (BROVANA) 15 mcg/2 mL nebulizer solution Inhale 2 mL as instructed every 12 hours. Maymix with Budesonide neb twice a day. metFORMIN (GLUCOPHAGE) 500 mg tablet Take 1 tablet by mouth daily with breakfast. metoprolol succinate ER (TOPROL XL) 50 mg 24 hr tablet Take 3 tablets by mouth once daily. (Patienttaking differently: Take 50 mg by mouth once daily.) rOPINIRole (REQUIP) 0.5 mg tablet Take 3 tablets by mouth daily at bedtime. fluticasone (FLONASE) 50 mcg/actuation nasal spray USE 1 SPRAY IN EACH NOSTRIL ONCE DAILY. gabapentin (NEURONTIN) 100 mg capsule Take 1 capsule by mouth three times daily for 180 days. Lancets lancets Test blood sugar(s) 2 times daily. Dx: Type 2 DM - Controlled E11.9 Insulin: No blood sugar diagnostic (BLOOD GLUCOSE TEST) test strip Test blood sugar(s) 2 times daily. Dx: Type 2 DM - Controlled E11.9 Insulin: No COMPOUNDED PRESCRIPTION Oxygen via nasal canula 2 L N/C DX: copd and hypoxia COMPOUNDED PRESCRIPTION Lightweight portable oxygen DX: copd, 2 L nc continuously Social History Tobacco Use Smoking status: Former Packs/day: 0.50 Years: 45.00 Additional pack years: 0.00 Total pack years: 22.50 Types: Cigarettes Start date: 08/30/1966 Quit date: 01/29/2012 Years since quittin.9 Smokeless tobacco: Never Tobacco comments: Father smoked in childhood home. Spouse smoked briefly after marriage. Substance Use Topics Alcohol use: No Drug use: No Family History Problem Relation Age of Onset other (lymphoma) Mother COPD Father other (bone cancer) Father Ischemic Heart Disease Son 33 PAST SURGICAL HISTORY Procedure Laterality Date HYSTERECTOMY HX prolapse non ca, total TONSILLECTOMY HX I reviewed the past medical history, family history, social history and surgical history with changes noted above and updated in EMR. IMMUNIZATIONS Prevnar - 06/19/2016 Pneumovax - 03/09/2014 Influenza - 03/20/2022 COVID-19 - 03/20/2022 ROS: CONSTITUTIONAL: No fevers, chills, nightsweats, unintended weight loss or weight gain HEENT: No sinus congestion or post nasal drip CARDIOVASCULAR: No chest pain, palpitations, orthopnea, PND. Chronic edema PULM: See HPI GI: No dysphagia/odynophagia, problematic reflux NEURO: Balance issues with history of falls, PT/OT at home PSY: No concerns regarding depression, anxiety INTEGUMENTARY: No new skin changes or rash. PHYSICAL EXAMINATION: BP 110/68 (BP Site: Right Arm, BP Position: Sitting, BP Cuff Size: Regular Adult) Pulse 80 Resp16 SpO2 93% O2: 3L NC Gen: No acute distress. Cooperative with examination. HEENT: Normocephalic. Sclera, conjunctiva clear. Upper plate. No thrush. Resp: No stridor, accessory respiratory muscle use, supra-sternal or intercostal retractions. No wheezes, crackles. Diminished breath sounds. CV: Regular rythm. Heart tones normal. Radial pulses normal. Abd: Non distended. MSK: No kyphoscoliosis. Ext: Warm and well perfused. No clubbing, cyanosis. Chronic lower extremity edema with dermastasis. Skin: No rash, ecchymoses. Neuro: Mental status normal. Affect normal. No tremor. DATA: PFT, 01/2021: Review pulmonary function test shows severe obstruction CTA chest, 04/18/2022 COMPARISON: November 23, 2020 comparison is not available. Comparison study dated January 14, 2019 RESULT: Limitations: None. Chest: Limitations: None. Lines, tubes, and devices: None. Lung parenchyma and airways: Centrilobular emphysema. Calcified granuloma involving the posterior medial aspect of the right lower lobe. Patchy infiltrate is seen within the peripheral and posterior aspect of the left upper lobe. Punctate subpleural nodularity involving the peripheral aspect left lower lobe (series 3 image 38), unchanged from the prior exam. No pneumothorax. Central airways are patent. Pleural space: No pleural effusion. No pleural thickening. Lower neck, lymph nodes, and mediastinum: Calcified mediastinal lymph nodes. No axillary or mediastinal adenopathy. Heart, pericardium, and thoracic vessels: Atherosclerotic calcifications involving the coronary arteries. Possible calcification of the mitral annulus. Great vessels are normal in position and size. Cardiac chambers are unremarkable in appearance. Stable [place] type B dissection extending from the distal thoracic aorta to the origin of the left external iliac artery. Celiac trunk, superior mesenteric artery, renal arteries, inferior mesenteric artery extend off the true lumen and are patent. The left external iliac artery appears to extendpartially off the false lumen. Moderate soft tissue plaque involving the false lumen. Abdomen / Pelvis: Liver: No mass. Diffuse fatty infiltration liver. Biliary: No bile duct dilation. No calcified gallstones are seen. Spleen: No mass. No splenomegaly. Pancreas: Calcifications involving the pancreatic tail. Calcifications involving the pancreatic head and uncinate process. Adrenals: No mass. Kidneys: Simple appearing cortical cyst involving the posterior interpolar left kidney. Additional probable cortical cysts with the left kidney. No renal calculus or hydronephrosis. Probable small right renal cortical cysts which are too small to fully characterize. No renal calculus or hydronephrosis. GI tract: Fecal residue in the colon. No acute inflammatory process identified involving the bowel.No evidence of bowel obstruction. Lymph nodes: No abdominal or pelvic lymphadenopathy. Mesentery/Peritoneum: No ascites or mass. Retroperitoneum: No mass. Vasculature: See above. Pelvis: No free fluid or free air identified. Bladder is unremarkable in appearance. No inguinal hernia, mass, or adenopathy. Bones/Soft Tissues: Spondylosis and curvature of the thoracic and lumbar spine. No acute osseous abnormality identified. 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 Possible peripheral and posterior infiltrate within the left upper lobe. Hepatic steatosis. ASSESSMENT/PLAN: 1. Chronic obstructive pulmonary disease, unspecified COPD type (HCC) - ICD9: 496, ICD10: J44.9 (primary diagnosis) Instructed patient to restart Budesonide twice daily with Brovana. Continue DuoNeb as needed up to 4 times daily. Mucinex to help thin secretions. - BUDESONIDE 0.5 MG/2 ML SUSPENSION FOR NEBULIZATION 2. Dependence on continuous supplemental oxygen - ICD9: V46.2, ICD10: Z99.81 Continue supplemental oxygen. Patient is compliant and benefits from supplemental oxygen. 3. Former smoker - ICD9: V15.82, ICD10: Z87.891 Not a candidate for low-dose chest CT for cancer screening based on oxygen dependence, severity of her COPD and comorbidities 4. Class 2 obesity due to excess calories with body mass index (BMI) of 35.0 to 35.9 in adult, unspecified whether serious comorbidity present - ICD9: 278.00, V85.35, ICD10: E66.09, Z68.35 Weight loss advised. Portions of this documentation were copied and pasted from previous office visit notes in order to provide a cohesive continuity of the history. The note has been reviewed and edited and updated as necessary. Juhi Nolasco PA-C documented in this encounterBlanchard Valley Health System08-11-2023 Miscellaneous Notes* Telephone Encounter - Kalpana Sharif LPN - 01/16/2023 10:43 AM EDT Faxed. * Telephone Encounter - Jalyn Smith MD - 01/15/2023 5:29 PM EDT Was already placed on 01/12, see order * Telephone Encounter - Elyssa High RN - 01/15/2023 1:17 PM EDT Patient's daughter calling to request Pain Management referral be faxed to Dr. Paul @ [facility] Pain Management. Elyssa High RN documented in this encounterBlanchard Valley Health System08-09-2023 Miscellaneous Notes* Telephone Encounter - Stacey Rod - 01/14/2023 10:27 AM EDT Patient verbally understands she needs iron and she still declines gi. Stacey Rod * Telephone Encounter - Jalyn Smith MD - 01/14/2023 10:19 AM EDT Blood work still shows anemia. We can add iron. Recheck cbc in one month. Would still consider gi. Let me know if changes her mind regarding consult documented in this encounterBlanchard Valley Health System08-07-2023 History of Present illness Narrative* Selene Anaya RN - 01/12/2023 3:59 PM EDT [facility] Telephonic Outreach Provider Action/FYI Contacted for: Routine Telephonic Outreach Contact made with patient: Yes Patient identified by name and date of . Discussed care with patient Are you experiencing any new or worsening symptoms you need to talk about today? No Disease Specific Do you check your blood pressure at home? Yes, Enter readings: Every other day 117/70 Do you have new or worsening shortness of breath with activity? No SOB with exertion. Oxygen 3 L/NC 24/7 Do you have new or worsening cough? No Occasional cough Do you have new or worsening wheezing? No Do you need to use your rescue (Albuterol) inhaler or nebulizer more often than normal? No Albuterol inhaler PRN Nebulizer BID Medications Do you have any questions about taking your medication or which medications you should be on? No Do you need any medication refills at this time, including any of the medications you might take only when needed? No Social We would like to make sure you have what you need so that your basic needs are met- including your personal safety, food, housing, transportation and medications? Would you like to speak with a social work steaming machine operator to help give you support for any of these needs? No Lives with daughter. Feels safe. + food Daughter has Blink camera set up It can be normal to feel anxious or down during a time like this. Would you like to talk to a mental health professional about how you have been feeling? 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 Routed to: No Action Needed SAMMY Education Provided this Outreach: No Selene Anaya RN January 12, 2023 4:07 PM Care Coordination next call- Last CD outreach contact: 01/12 -COPD No concerns Baseline: 01/12/23 ADL, FALL, GOAL due: 10/16/23 . Chronic disease goal - 10/15/22 -copd SDOH transportation and food insecurity completed: 01/11/23 * Selene Anaya RN - 01/12/2023 2:56 PM EDT [facility] Telephonic Outreach Provider Action/FYI Contacted for: Routine Telephonic Outreach Contact made with patient: No, left message. Selene Anaya RN January 12, 2023 3:05 PM Care Coordination next call- lvm x 1 Last CDM outreach contact: 10/14 -COPD 12/13 - spoke to daughter Karson. Pt admitted. See FYI box PCP 12/10/22 Baseline: need ADL, FALL, GOAL due: 10/16/23 . Chronic disease goal - 10/15/22 -copd SDOH transportation and food insecurity completed: no documented in this encounterBlanchard Valley Health System08-07-2023 Miscellaneous Notes* Addendum Note - Jalyn Smith MD - 01/12/2023 2:49 PM EDTAddended by: JALYN SMITH on: 01/12/2023 02:49 PM Modules accepted: Orders documented in this encounterBlanchard Valley Health System08-07-2023 History of Present illness Narrative* Jalyn Smith MD - 01/12/2023 1:50 PM EDT Patient presents with: Hospital F/U HPI: Patient presents today for office visit for hospital follow up. Seen in [facility] ER on 12/10/22 Discharged 12/15/22 Transferred to TCU from 12/15/22 to 01/02/23 Dx with Debility and UTI Currently on Doxycycline. Only a few pills left. Was anemic with heme positive stools. They stabilized her with the idea she could follow up with gias an outpatient. Hb was stable. Discussed doing gi evaluation. She is declining it currently. Is aware of risks of not doing it. Treated for uti. Apparently had blood in the urine. No dysuria or frequency. Today feeling tired and weak Metoprolol decreased to 1 tablet daily Bp still slightly low on arrival. No fever or chills. No dizziness. She is drinking ok. Complaints of diarrhea since getting out of TCU. Last 3 days or so has taken 6+ Imodium with no relief. No black or bloody stools. Worse since back on her coffee at home discussed stopping coffee first and then doing stool studiesif persists. MEDICATIONS: Current Outpatient Medications Medication Sig baclofen 10 mg tablet Take 1 tablet by mouth three times daily. hydroCHLOROthiazide 12.5 mg capsule Take 2 capsules by mouth once daily. sertraline (ZOLOFT) 50 mg tablet Take 1 tab once a day. albuterol HFA (VENTOLIN HFA) 90 mcg/actuation inhaler Inhale 2 Puffs as instructed every 4 hours asneeded for wheezing/shortness of breath. oxybutynin XL (DITROPAN XL) 5 mg 24 hr tablet Take 1 tablet by mouth once daily. arformoterol (BROVANA) 15 mcg/2 mL nebulizer solution Inhale 2 mL as instructed every 12 hours. Maymix with Budesonide neb twice a day. metFORMIN (GLUCOPHAGE) 500 mg tablet Take 1 tablet by mouth daily with breakfast. metoprolol succinate ER (TOPROL XL) 50 mg 24 hr tablet Take 3 tablets by mouth once daily. rOPINIRole (REQUIP) 0.5 mg tablet Take 3 tablets by mouth daily at bedtime. fluticasone (FLONASE) 50 mcg/actuation nasal spray USE 1 SPRAY IN EACH NOSTRIL ONCE DAILY. gabapentin (NEURONTIN) 100 mg capsule Take 1 capsule by mouth three times daily for 180 days. Lancets lancets Test blood sugar(s) 2 times daily. Dx: Type 2 DM - Controlled E11.9 Insulin: No blood sugar diagnostic (BLOOD GLUCOSE TEST) test strip Test blood sugar(s) 2 times daily. Dx: Type 2 DM - Controlled E11.9 Insulin: No COMPOUNDED PRESCRIPTION Oxygen via nasal canula 2 L N/C DX: copd and hypoxia COMPOUNDED PRESCRIPTION Lightweight portable oxygen DX: copd, 2 L nc continuously No current facility-administered medications for this visit. ALLERGIES: ALLERGIES Allergen Reactions Lisinopril Other: See Comments cough Lyrica [Pregabalin] Swelling PAST MEDICAL HISTORY Diagnosis Date COPD (chronic obstructive pulmonary disease) (HCC) Degenerative disc disease Depression Descending thoracic aortic dissection (HCC) 12/22/[address] Perry (vascular) Fibromyalgia HTN (hypertension) OA (osteoarthritis) MICHEL (obstructive sleep apnea) not on CPAP Restless leg syndrome PAST SURGICAL HISTORY Procedure Laterality Date HYSTERECTOMY HX prolapse non ca, total TONSILLECTOMY HX FAMILY HISTORY Problem Relation Age of Onset other (lymphoma) Mother COPD Father other (bone cancer) Father Ischemic Heart Disease Son 33 Social History Tobacco Use Smoking status: Former Packs/day: 0.50 Years: 45.00 Total pack years: 22.50 Types: Cigarettes Start date: 08/30/1966 Quit date: 01/29/2012 Years since quittin.9 Smokeless tobacco: Never Tobacco comments: Father smoked in childhood home. Spouse smoked briefly after marriage. Substance Use Topics Alcohol use: No Drug use: No Reviewed current medications, allergies, past medical history, surgical history, family history andsocial history today. REVIEW OF SYSTEMS Request pain management referral due to ongoing issues. All other reviewed and negative other than HPI. HEALTH MAINTENANCE: Reviewed health maintenance issues today and recommended the following in detail. HEPATITIS C SCREENING Never done COVID-19 VACCINE(5 - Moderna series) due on 07/21/2022 VITALS: BP 96/56 Pulse 73 Ht 162.6 cm (5' 4) Wt 93.7 kg (206 lb 9.6 oz) SpO2 97% BMI 35.46 kg/m Last 4 Encounter Wt Readings: Date: Wt: 12/10/2022 93.9 kg (207 lb) 10/01/2022 93.9 kg (207 lb) 07/17/2022 93 kg (205 lb) 06/20/2022 91.6 kg (202 lb) PHYSICAL EXAMINATION: General appearance: Well appearing, alert, in no acute distress, well-hydrated, well nourished. Skin: Skin color, texture, turgor normal, no suspicious rashes or lesions Head: Normocephalic, no masses, lesions, tenderness or abnormalities Lungs: Lungs clear to auscultation. No wheezing, rhonchi, rales Heart: RRR without murmur, gallop, or rubs. No ectopy Abdomen: Normal abdominal exam, Abdomen soft, non-tender. Bowel sounds normal. No masses, organomegaly Extremities: edema is stable. In wheelchair and on oxygen. ASSESSMENT/PLAN: 1. Diarrhea, unspecified type - ICD9: 787.91, ICD10: R19.7 (primary diagnosis) - limit coffee. See if improves. If not do stool studies. Red flags for re-assessment reviewed with patient in detail. - ENTERIC BACTERIAL PANEL BY PCR - C. DIFFICILE PCR - FECAL LACTOFERRIN/LEUKOCYTES - OVA + PARA MICROSCOPIC 2. Microscopic hematuria - ICD9: 599.72, ICD10: R31.29 - check urine when off antibiotic.s - URINALYSIS, WITH MICROSCOPIC - URINE CULTURE 3. Rectal bleeding - ICD9: 569.3, ICD10: K62.5 - consider seeing GI - CBC + DIFF - BASIC METABOLIC PNL 4. Essential hypertension - ICD9: 401.9, ICD10: I10 - Controlled - Continue current medications 5. Thoracic aortic aneurysm without rupture, unspecified part (HCC) - ICD9: 441.2, ICD10: I71.20 - doing well. Bp is stable 6. Dissection of descending aorta (HCC) - ICD9: 441.00, ICD10: I71.00 - stable. 7. Chronic respiratory failure with hypoxia (HCC) - ICD9: 518.83, 799.02, ICD10: J96.11 - stable. 8. Type 2 diabetes mellitus without complication, without long-term current use of insulin (HCC) - ICD9: 250.00, ICD10: E11.9 -stable. 9. Osteoarthritis of both knees, unspecified osteoarthritis type - ICD9: 715.96, ICD10: M17.0 - CONSULT TO PAIN MGT 10. DDD (degenerative disc disease), lumbar - ICD9: 722.52, ICD10: M51.36 - CONSULT TO PAIN MGT Jalyn Smith MD RTO in three months. documented in this encounterBlanchard Valley [facility] System08-03-2023 Miscellaneous Notes* Telephone Encounter - Kristina Holloway LPN - 01/08/2023 11:24 AM EDT Patient phones requesting refills as follows: Requested Prescriptions Pending Prescriptions Disp Refills sertraline (ZOLOFT) 50 mg tablet 90 tablet 1 Sig: Take 1 tab once a day. JERRELL-12/12/22 Labs-12/05/22 NOV-01/12/23 Please review and advise. Kristina Holloway LPN documented in this encounterBlanchard Valley Health System08-03-2023 Miscellaneous Notes* Telephone Encounter - Kristina Holloway LPN - 01/08/2023 11:21 AM EDT Patient phones requesting refills as follows: Requested Prescriptions Pending Prescriptions Disp Refills baclofen 10 mg tablet 270 tablet 1 Sig: Take 1 tablet by mouth three times daily. JERRELL-12/12/22 Labs-12/05/22 NOV-01/12/23 Please review and advise. Kristina Holloway LPN documented in this encounterBlanchard Valley Health System08-03-2023 Miscellaneous Notes* Telephone Encounter - Francoise Grady RN - 01/08/2023 10:03 AM EDT Rizwana OT with [facility] HH calls to let provider know that patient was seen today for one time eval only visit. No further OT needs at this time. No call back needed. Francoise Grady RN documented in this encounterBlanchard Valley Health System07-28-2023 Discharge summary Author Gustavo Justice [facility] January 02, 2023 7:57am Note Date/Time December 30, 2022 7:46 pm [facility] Medical Records Department [address] [place] [id number] Discharge Summary 12/30/221943 MR#: [id number] Acct: [id number] Name: KANDI CORREIA Rep #:[id number] : 1945 77 From: Gustavo Justice MD PCP: Dr. Jalyn Smith MD Status:ADM I N Location: [place] [address]- Providers Date of Admission: 12/15/22 Primary Care Physician: Dr. Jalyn Smith MD Consultations 12/22/22 07:54 Consult: Hospice / Palliative Care Routine Consulting Provider: [facility] Reason for Consult: Palliative consult dyspnea on exertion, fatigue. 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 Reason For Visit: GENERALIZED WEAKNESS Diagnosis Discharge Diagnosis (1) Debility: Status: Acute Code(s): R53.81 - Other malaise (2) Urinary tract infection: Status: Acute Code(s): N39.0 - Urinary tract infection, site not specified (3) CATHI (acute kidney injury): Status: Resolved Code(s): N17.9 - Acute kidney failure, unspecified (4) Blood in stool: Status: Acute Code(s): K92.1 - Melena (5) Chronic obstructive pulmonary disease: Status: Chronic Code(s): J44.9 - Chronic obstructive pulmonary disease, unspecified Qualifiers: COPD type: unspecified COPD Qualified Code(s): J44.9 - Chronic obstructive pulmonary disease, unspecified (6) Osteoarthritis: Status: Acute Code(s): M19.90 - Unspecified osteoarthritis, unspecified site Qualifiers: Osteoarthritis location: multiple joints Osteoarthritis type: unspecified Qualified Code(s): M15.9 - Polyosteoarthritis, unspecified (7) Diabetes mellitus: Status: Acute Code(s): E11.9 - Type 2 diabetes mellitus without complications Qualifiers: Diabetes mellitus type: type 2 Diabetes mellitus fpc insulin use:without fpc use Diabetes mellitus complication status: with neurologic complications Diabetes mellitus complication detail: with polyneuropathy Qualified Code(s): E11.42 - Type 2 diabetes mellitus with diabetic polyneuropathy (8) Restless leg syndrome: Status: Acute Code(s): G25.81 - Restless legs syndrome (9) Hypertension: Status: Chronic Code(s): I10 - Essential (primary) hypertension Qualifiers: Hypertension type: primary hypertension Qualified Code(s): I10 - Essential (primary) hypertension (10) Overactive bladder: Status: Acute Code(s): N32.81 - Overactive bladder (11) Depression: Status: Acute Code(s): F32.9 - Major depressive disorder, single episode, unspecified (12) Diabetic polyneuropathy: Status: Acute Code(s): E11.42 - Type 2 diabetes mellitus with diabetic polyneuropathy Plan 77 year old female with below past medical history hospitalized for urinary tract infection, acute kidney injury, occult blood in stool, admitted to TCU with debility, here for rehabilitation, strengthening, prior to discharge home alone. * Debility - PT/OT. * Pain - Tylenol 1000mg q6h prn pain (1-3), * Bowel - senna/colace 1 tablet bid, Dulcolax 10mg pr daily prn, Magnesium citrate 300ml po x 1 prn. * Adult immunization - Administer pneumonia vaccine, covid19 vaccine, flu vaccine as appropriate. * DVT prophylaxis - Lovenox 40mg sc daily. * COPD - Brovana 15mcg q12h, Duoneb 3ml 4x/day, Albuterol 2 puffs Q4h prn. * Diabetic polyneuropathy - Gabapentin 100mg tidcm. * Hypertension - Metoprolol succinate 50mg daily, HCTZ 25mg daily. * Diabetes Mellitus II - Metformin 500mg daily. * Overactive bladder - Oxybutynin 5mg daily. * Restless Leg syndrome - Mirapex 0.75mg qhs. * Depression - Sertraline 50mg daily, stable chronic fpc use, GDR not recommended. Medications at Discharge Home Medications albuterol sulfate 90 mcg/actuation aerosol inhaler 2 puff inhalation Q4H PRN Sob&/Or Wheezing 10/14/18 metformin 500 mg tablet 500 mg PO DAILY Blood sugar 10/14/18 ropinirole 0.5 mg tablet 1.5 mg PO QHS Restless leg 10/14/18 Oxygen #1 ea 10/27/18 ipratropium 0.5 mg-albuterol 3 mg (2.5 mg base)/3 mL nebulization soln 1 dose inhalation 4X/DAY Breathing 12/22/18 oxybutynin chloride 5 mg tablet 5 mg PO DAILY Bladder 07/25/21 sertraline 50 mg tablet 50 mg PO DAILY Mood 07/25/21 acetaminophen 500 mg tablet 1,000 mg (2 x 500 mg) PO Q6H PRN PRN Pain Score 1-3 #0 tabs 08/07/21 gabapentin 100 mg capsule 100 mg PO TIDCM nerve pain 30 days #90 caps 08/07/21 arformoterol 15 mcg/2 mL solution for nebulization 15 mcg inhalation Q12H breathing 12/11/22 hydrochlorothiazide 25 mg tablet 25 mg PO DAILY BP/fluid #0 tabs 12/15/22 metoprolol succinate 50 mg tablet,extended release 24 hr 50 mg PO DAILY BP/HR 30days #0 tabs 12/15/22 Hospital Course Operations None Procedures None Summary of Care Provided Minutes Spent on Discharge: 35 Hospital Course: 77 year old female with below past medical history hospitalized for urinary tract infection, acute kidney injury, occult blood in stool, admitted to TCU with debility, here for rehabilitation, strengthening, prior to discharge home alone. Discharge home with daughter 01/02/2023, [facility] PT/OT, Front Wheeled Walker. Physical Exam Const alert General Appearance: cooperative HEENT normocephalic Eyes PERRL and EOMs intact bilaterally Neck supple, no JVD and no carotid bruits Resp normal respiratory effort, normal air movement and clear to auscultation bilaterally Cardio regular rate and regular rhythm GI normal to inspection, nondistended, normoactive bowel sounds, non-tender and non-distended Extremity normal capillary refill General Extremity: Negative for edema Skin no rashes or lesions noted General Skin Exam: no breakdown Psych affect normal Appearance: appropriate Weight / BMI Weight Weight: 91.943 kg Body Mass Index (BMI) 37.0 ABG / Lab / Microbiology Data 12/30/22 05:15 12/30/22 05:15 Laboratory: Laboratory Results - last 24 hr 12/30/22 05:15: WBC 5.1, RBC 3.48 L, Hgb 10.6 L, Hct 35.0 L, MCV 100.6 H, MCH 30.5, MCHC 30.3 L, RDW Std Deviation 49.3 H, RDW Coeff of Stephenie 13.4, Plt Count 256, MPV 8.9, Immature Gran % (Auto) 0.800, Neut % (Auto) 55.5, Lymph % (Auto) 24.4, [place] % (Auto) 15.2 H, Eos % (Auto) 3.1, Baso % (Auto) 1.0, Absolute Neuts (auto) 2.9, Absolute Lymphs (auto) 1.25, Nucleated RBC % 0, Sodium 136, Potassium 3.5, Chloride 94 L, Carbon Dioxide 40.0 H, Anion Gap 2 L, BUN 24 H, Creatinine 0.91, Estim Creat Clear Calc 42.25, Est GFR (MDRD) Af Amer 78, Est GFR (MDRD) Non-Af 64, BUN/Creatinine Ratio 26.4 H, Glucose 101, Calcium 8.9 12/30/22 06:16: POC Glucose 101 D/C Instructions Discharge Diet: No restrictions Discharge Activity: Return to Normal Activity, May Shower and Use Walker Weight Bearing Status: Weight bearing as tolerated Call your doctor if you observe: Fever of 101 or Higher, Inability to urinate, Inability to have a bowel movement, Shortness of breath, Dizziness, Fainting spells, Swelling in the ankles, Chest pain and Uncontrolled pain Additional Instructions: Discharge home with daughter 01/02/2023, [facility] PT/OT, Front Wheeled Walker. Please Follow Up With: Friend,Kade, DO When: 4 weeks. Meaningful Use Info Meaningful Use Diagnoses (Choose all that apply): None applicable Discharge Plan Admission Admit Date/Time: 12/15/22 15:35 Primary Reason for Your Visit: Debility. Attending Provider: Gustavo Justice Chi Primary Care Provider: Jalyn Smith Consulting Providers: Neftaly Lam; Concepcion Peacock; Kaci Patino; Melanie Ochoa VENTILATING EXPERT Instructions Additional Instructions / Restrictions: Discharge home with daughter 01/02/2023, [facility] PT/OT, Front Wheeled Walker. Discharge Orders/Prescriptions Prescriptions: Continued metformin 500 mg tablet 500 mg PO DAILY albuterol sulfate 90 mcg/actuation HFA aerosol inhaler 2 puff INHALATION Q4H PRN (Reason: Sob &/Or Wheezing) ropinirole 0.5 mg tablet 1.5 mg PO QHS ipratropium-albuterol 0.5-3MG/3 solution for nebulization 1 dose inhalation 4X/DAY oxybutynin chloride 5 mg Tablet 5 mg PO DAILY sertraline 50 mg Tablet 50 mg PO DAILY acetaminophen 500 mg Tablet 1,000 mg PO Q6H PRN PRN (Reason: Pain Score 1-3) Qty: 0 0RF gabapentin 100 mg Capsule 100 mg PO TIDCM 30 Days Qty: 90 0RF arformoterol 15 mcg/2 mL solution for nebulization 15 mcg INHALATION Q12H hydrochlorothiazide 25 mg Tablet 25 mg PO DAILY Qty: 0 0RF metoprolol succinate 50 mg tablet extended release 24 hr 50 mg PO DAILY 30 Days Qty: 0 0RF Rx Instructions: Hold for heart less than 50 or systolic blood pressure less than 100 mmHg. No Action (DME) Oxygen 3 liters NC Qty: 1 Dose Instruction: As directed Patient Comments: says she uses 3-4L at home Rx Instructions: As directed Referrals / Follow Up: Jalyn Smith MD [Primary Care Provider] - 01/12/23 2:00 pm Disposition Disposition (needs filled in before D/C Order can be placed): Home Health Service 12/30/221952 <Electronically signed by Gustavo Justice MD> Cosigner Signature (if applicable): CC: Dr. Gustavo Justice MD; Dr. Jalyn Smith MD~ Signed ADDENDUM by Dr. Gustavo Justice MD on 01/02/23 at 0757 Addendum 01/02/2023 Bilateral lower extremity cellulitis, Rx Keflex 500mg q6 x 7 days, Rx Doxycycline 100mg bid x 7 days, started on TCU, sent to [facility] for pickup on discharge today. 01/02/23756<Electronically signed by Gustavo Justice MD> Cosigner Signature (if applicable): cc: Dr. Gustavo Justice MD; Dr. Jalyn Smith MD ~* Signed [facility] Work Phone: 1(162) 280-549507-28-2023 Hospital Discharge instructions Additional Instructions -Discharge home with daughter 01/02/2023, [facility] PT/OT, . Front Wheeled Walker. -Oxygen at 3 liters per minute via nasal cannula continuous.[facility] Work Phone: 1(540) 336-747107-11-2023 Progress note Author Cira Ortiz [facility] December 16, 2022 3:10pm Note Date/Time December 16, 2022 1:51 pm [facility] Medical Records Department [address] [place] [id number] Progress Note - Pharmacy 12/16/22 1347 MR#: [id number] Acct: [id number] Name: KANDI CORREIA Rep #:[id number] : 1945 77 From: Cira Ortiz PCP: Dr. Jalyn Smith MD Status:ADM I N Location: TCU [facility]- TCU RX Drug Regimen Review Subjective/Objective Subjective/Objective: Subjective: 77 year old female hospitalized for urinary tract infection, acute kidney injury, occult blood in stool. admitted to TCU with debility. here for rehabilitation, strengthening, prior to discharge home alone. Objective: Allergies lisinopril Adverse Reaction (Intermediate, Verified 12/10/22 23:21) cough pregabalin [From Lyrica] Adverse Reaction (Verified 12/10/22 23:21) Swelling Current Medications Generic Name Dose Route Start Last Admin Trade Name Freq PRN Reason Stop Dose Admin Acetaminophen 1,000 mg 12/15/22 15:53 Acetaminophen 500 Mg Tablet PO Q6H PRN PRN Pain Score 1-3 Albuterol Sulfate 2 puff 12/15/22 16:27 Albuterol Ih (6.7 Gm) 1 Puff Inhaler INHALATION Q4H PRN PRN Sob &/Or Wheezing Bisacodyl 10 mg 12/15/22 16:10 Bisacodyl 10 Mg Suppository RC DAILY PRN CONSTIPATION Gabapentin 100 mg 12/15/22 17:45 12/16/22 11:56 Gabapentin 100 Mg Capsule PO 100 mg TIDCM DIAZ Administration Hydrochlorothiazide 25 mg 12/16/22 22:00 Hydrochlorothiazide 25 Mg Tablet PO QHS DIAZ Magnesium Citrate 300 ml 12/15/22 20:30 Magnesium Citrate 300 Ml PO X1 PRN Constipation Metformin HCl 500 mg 12/16/22 08:00 12/16/22 08:18 Metformin Hcl 500 Mg Tablet PO 500 mg DAILYCM DIAZ Administration Metoprolol Succinate 50 mg 12/16/22 06:00 12/16/22 06:19 Metoprolol(Xl)Succ 50 Mg Tablet PO 50 mg DAILY DIAZ Administration Oxybutynin Chloride 5 mg 12/16/22 06:00 12/16/22 06:19 Oxybutynin 5 Mg Tablet PO 5 mg DAILY DIAZ Administration Pramipexole Dihydrochloride 0.75 mg 12/15/22 22:00 12/15/22 20:50 Pramipexole Di-Hcl 0.25 Mg Tablet PO 0.75 mg QHS DIAZ Administration Senna/Docusate Sodium 1 tablet 12/15/22 20:45 12/16/22 06:20 Senna/Docusate Sodium 1 Tablet PO 1 tablet BID DIAZ Administration Sertraline HCl 50 mg 12/16/22 06:00 12/16/22 06:19 Sertraline 50 Mg Tablet PO 50 mg DAILY DIAZ Administration Tuberculin PPD 0.1 ml 12/23/22 10:00 Tuberculin,Purif.Prot.Deriv. 50 Tu/Ml Vial ID 12/23/22 10:01 X1 ONE Problem List (Updated 12/15/22 @ 20:[address] Gustavo Justice MD) Diabetic polyneuropathy (Acute) Depression (Acute) Overactive bladder (Acute) Blood in stool (Acute) Urinary tract infection (Acute) CATHI (acute kidney injury) (Acute) Restless leg syndrome (Acute) Diabetes mellitus (Acute) Osteoarthritis (Acute) Hypertension (Chronic) Chronic obstructive pulmonary disease (Chronic) Debility (Acute) Vital Signs Temp Pulse Resp BP Pulse Ox O2 Del Method O2 Flow Rate 98.7 F 94 19 H 123/71 H 93 Nasal Cannula 3 12/16/22 10:24 12/16/22 10:24 12/16/22 10:24 12/16/22 10:24 12/16/22 10:24 12/16/22 10:24 12/16/22 11:08 Oxygen Flow Rate (L/min) 3 Oxygen Delivery Method Nasal Cannula Weight: 90.293 kg Body Mass Index (BMI) 36.6 Sodium 136 mmol/L (136-145) 12/16/22 05:33 Potassium 3.8 mmol/L (3.5-5.1) 12/16/22 05:33 Chloride 96 mmol/L (98-107) L 12/16/22 05:33 Carbon Dioxide 37.0 mmol/L (21.0-32.0) H 12/16/22 05:33 Anion Gap 3 (5-15) L 12/16/22 05:33 BUN 20 mg/dL (7-18) H 12/16/22 05:33 Creatinine 0.80 mg/dL (0.55-1.02) 12/16/22 05:33 Est GFR (MDRD) Af Amer 90 mL/min (>60) 12/16/22 05:33 Est GFR (MDRD) Non-Af 75 mL/min (>60) 12/16/22 05:33 BUN/Creatinine Ratio 25.1 RATIO (10-20) H 12/16/22 05:33 Glucose 131 mg/dL (74-106) H 12/16/22 05:33 Assessment & Plan: 1. COPD: Albuterol sulfate 90 mcg/actuation 2 puff Q4H PRN,?Arformoterol 15 mcg/2 ml solution for nebulization 15 mcg Q12H. Please continue to monitor use of rescue inhaler, heart rate, and frequency of exacerbations. 2. Edema of lower extremities: Hydrochlorothiazide 25 mg PO QHS. Please continueto monitor fluid retention in legs and urine output, electrolytes, and renal function. 3. DVT prophylaxis: Lovenox 40 mg SC daily. Please continue to monitor CrCl (last CrCl 48mL/min), blood in urine/stool and S/S bleeding/bruising. 4. Hypertension:Metoprolol succinate 50 mg PO daily, Hydrochlorothiazide 25 mg PO QHS. Please continue to monitor BP(range 121-170/71-89), pulse (range 89-106)and electrolyte disturbances?(labs 12/16/22 WNL) 5. Fibromyalgia: Gabapentin 100 mg PO TID. Please continue to monitor pain levels and flare-ups. 6.Right knee pain: Acetaminophen 500 mg PO q6h. Continue to monitor pain levels and daily acetaminophen intake 7. RLS (Restless leg syndrome):Pramipexole 0.75 mg PO QHS. Please continue to monitor for symptoms of restless leg syndrome, medication effectiveness. 8. Diabetes mellitus type 2: Metformin 500 mg PO Daily. Please continue to monitor Hgb A1c values (goal of 7) and blood sugar levels (goal 80-130 before meals) 9.Bowel: Senna/ docusate 1 Tab PO BID, Magnesium Citrate 300 mL PO Daily PRN, Bisacodyl 10 mg tablet: 1 Tab PO Daily PRN. Please continue to monitor for diarrhea, constipation and electrolyte disturbances 10. OAB: Oxybutynin chloride 5 mg PO Daily. Monitor for constipation and anticholinergic side effects Assessment & Plan for psychotropic medications:? 11. Depression: Sertraline 50 mg PO Daily. Please consider a GDR by 07/2023 if clinically indicated, thank you. Please monitor for serotonin syndrome and breakthrough depression Medication chart reviewed. The following medication irregularities/ issues were identified: 1. Depression: Sertraline 50 mg PO Daily. Please consider a GDR by 07/2023 if clinically indicated, thank you. Please monitor for serotonin syndrome and breakthrough depression 2.Patient does not have an A1c value on file, recommended getting an A1c valueevery 3 months.? Date Date of Note:: 12/16/22 12/16/22 1510 <Electronically signed by Cira Ortiz> Cria Ortiz Cosigner Signature (if applicable): CC: ~ Signed [facility] Work Phone: 1(211) 749-182307-10-2023 History and physical note Author Gustavo Justice [facility] December 15, 2022 8:30pm Note Date/Time December 15, 2022 8:24 pm [facility] Medical Records Department [address] [place] [address] History & Physical Exam 12/15/222015 MR#: [id number] Acct: [id number] Name: KANDI CORREIA Rep #:[id number] : 1945 77 From: Gustavo Justice MD PCP: Dr. Jalyn Smith MD Status:ADM I N Location: [place] [address] HPI - General General Date of Admission: 12/15/22 Date of Service: 12/15/22 Chief Complaint: Here for rehabilitation. HPI Narrative 12/10/2022 KANDI CORREIA, is a 77 Female [facility]. 12/10/2022 EKG sinus rhythm with premature supraventricular contractions, otherwise normal EKG. 2 falls, no head injury, diffusely weak. on Cipro for urinary tract infection. Evaluation shows ongoing urinary tract infection, acute kidney injury. 12/10/2022 Admit to Hospital. PT/OT for debility. Ceftriaxone IV for urinary tract infection, urine culture pending. Gentle IV fluids for acute kidney injury. 12/11/2022 Slightly stronger. Acute kidney injury resolved with IV fluids. Finish antibiotic for urinary tract infection. . PT/OT Debility. Fecal occult blood testing positive. 12/12/2022 Feeling better. PT/OT for SNF. Hemoglobin stable. 12/13/2022 Urine culture 11,000 to 25,000 Klebsiella Pneumoniae, stop Ceftriaxone. Pre-CERT for TCU. 12/14/2022 Stool guaiac positive, outpatient GI for colonoscopy. 12/15/2022 Admit to TCU with debility, here for rehabilitation, stengthening, prior to discharge home alone. [facility] Medical History (Updated 12/15/22 @ 20:[address] Gustavo Justice MD) COPD (chronic obstructive pulmonary disease) Debility Degenerative disc disease, lumbar Depression Edema of both lower extremities Essential hypertension Fibromyalgia Generalized muscle weakness GERD (gastroesophageal reflux disease) Morbid obesity with BMI of 40.0-44.9, adult Muscle spasm MICHEL (obstructive sleep apnea) Osteoarthritis Right knee pain RLS (restless legs syndrome) Type 2 diabetes mellitus without complication Venous stasis ulcer of left lower leg with edema of left lower leg Home Medications albuterol sulfate 90 mcg/actuation aerosol inhaler 2 puff inhalation Q4H PRN Sob&/Or Wheezing 10/14/18 [History Last Taken Unknown] metformin 500 mg tablet 500 mg PO DAILY Blood sugar 10/14/18 [History Last Taken 12/10/22] ropinirole 0.5 mg tablet 1.5 mg PO QHS Restless leg 10/14/18 [History Last Taken 12/09/22] Oxygen #1 ea 10/27/18 [History Last Taken Unknown] ipratropium 0.5 mg-albuterol 3 mg (2.5 mg base)/3 mL nebulization soln 1 dose inhalation 4X/DAY Breathing 12/22/18 [History Last Taken Unknown] oxybutynin chloride 5 mg tablet 5 mg PO DAILY Bladder 07/25/21 [History Last Taken 12/10/22] sertraline 50 mg tablet 50 mg PO DAILY Mood 07/25/21 [History Last Taken 12/10/22] acetaminophen 500 mg tablet 1,000 mg (2 x 500 mg) PO Q6H PRN PRN Pain Score 1-3 #0 tabs 08/07/21 [Rx Last Taken Unknown] gabapentin 100 mg capsule 100 mg PO TIDCM nerve pain 30 days #90 caps 08/07/21 [Rx Last Taken 12/10/22] arformoterol 15 mcg/2 mL solution for nebulization 15 mcg inhalation Q12H breathing 12/11/22 [History Last Taken Unknown] hydrochlorothiazide 25 mg tablet 25 mg PO DAILY BP/fluid #0 tabs 12/15/22 [Rx Last Taken Unknown] metoprolol succinate 50 mg tablet,extended release 24 hr 50 mg PO DAILY BP/HR 30days #0 tabs 12/15/22 [Rx Last Taken Unknown] Allergy/AdvReac Type Severity Reaction Status Date / Time lisinopril AdvReac Intermediate cough Verified 12/10/22 23:21 pregabalin [From Lyrica] AdvReac Swelling Verified 12/10/22 23:21 Family History Mother Cancer lymphoma Father COPD (chronic obstructive pulmonary disease) Cancer bone Son Heart disease ischemic heart disease Surgical History History of appendectomy History of hysterectomy History of tonsillectomy Social History household members: none Smoking Status: Former smoker how long ago did patient quit smokin.5 years ago alcohol intake: current alcohol intake frequency: holidays/special occasions only substance use type: does not use caffeine: Yes Type: coffee Number of servings: 1 ROS Constitutional Constitutional: Denies chills, fever(s) or weight gain ENT HEENT: Denies headache(s), nasal congestion or nasal discharge Cardiovascular Cardiovascular: Denies chest pain or palpitations Respiratory/Chest Respiratory/Chest: Denies cough, excessive phlegm production or shortness of breath with exertion Gastrointestinal Gastrointestinal: Denies abdominal pain, nausea or vomiting Genitourinary Genitourinary: Denies dysuria Musculoskeletal Musculoskeletal: Denies joint pain or joint swelling Integumentary Integumentary: Denies rash or wounds Neurologic Neurologic: Denies focal weakness, numbness or tingling Psychiatric Psychiatric: Denies anxiety, auditory hallucinations, depression, homicidal ideation or suicidal ideation Vital Signs Vital Signs Vital Signs: 12/15/22 15:47 12/15/22 16:49 12/15/22 19:02 Temperature 97.1 F L Temperature Source Temporal Pulse Rate 78 99 Pulse Rhythm Regular Pulse Strength Normal (2+) Respiratory Rate 18 20 H Respiratory Effort Normal Respiratory Depth Normal Respiratory Pattern Normal Normal Blood Pressure 114/62 Blood Pressure Mean 79 Blood Pressure Source Monitor Blood Pressure Position Sitting Blood Pressure Location Right Arm Pulse Ox 99 Oxygen Delivery Method Room Air Nasal Cannula Oxygen Flow Rate (L/min) 3 3 Weight Weight: 90.31 kg Body Mass Index (BMI) 36.3 Physical Exam Const alert General Appearance: cooperative HEENT normocephalic Eyes PERRL and EOMs intact bilaterally Neck supple, no JVD and no carotid bruits Resp normal respiratory effort, normal air movement and clear to auscultation bilaterally Cardio regular rate and regular rhythm GI normal to inspection, nondistended, normoactive bowel sounds, non-tender and non-distended Extremity normal capillary refill General Extremity: Negative for edema Skin no rashes or lesions noted General Skin Exam: no breakdown Psych affect normal Appearance: appropriate Assessment & Plan Assessment/Plan (1) Debility: (2) Urinary tract infection: (3) CATHI (acute kidney injury): (4) Blood in stool: (5) Chronic obstructive pulmonary disease: QUALIFIERS: COPD type: unspecified COPD Qualified Code(s): J44.9 - Chronic obstructive pulmonary disease, unspecified (6) Osteoarthritis: QUALIFIERS: Osteoarthritis location: multiple joints Osteoarthritis type: unspecified Qualified Code(s): M15.9 - Polyosteoarthritis,unspecified (7) Diabetes mellitus: QUALIFIERS: Diabetes mellitus complication detail: with polyneuropathy Diabetes mellitus complication status: with neurologic complications Diabetes mellitus long term care administrator insulin use: without long term care administrator use Diabetes mellitus type: type 2 Qualified Code(s): E11.42 - Type 2 diabetes mellitus with diabetic polyneuropathy (8) Restless leg syndrome: (9) Hypertension: QUALIFIERS: Hypertension type: primary hypertension Qualified Code(s): I10 - Essential (primary) hypertension (10) Overactive bladder: (11) Depression: (12) Diabetic polyneuropathy: PLAN: Plan 77 year old female with below past medical history hospitalized for urinary tract infection, acute kidney injury, occult blood in stool, admitted to TCU with debility, here for rehabilitation, strengthening, prior to discharge home alone. * Debility - PT/OT. * Pain - Tylenol 1000mg q6h prn pain (1-3), * Bowel - senna/colace 1 tablet bid, Dulcolax 10mg pr daily prn, Magnesium citrate 300ml po x 1 prn. * Adult immunization - Administer pneumonia vaccine, covid19 vaccine, flu vaccine as appropriate. * DVT prophylaxis - Lovenox 40mg sc daily. * COPD - Brovana 15mcg q12h, Duoneb 3ml 4x/day, Albuterol 2 puffs Q4h prn. * Diabetic polyneuropathy - Gabapentin 100mg tidcm. * Hypertension - Metoprolol succinate 50mg daily, HCTZ 25mg daily. * Diabetes Mellitus II - Metformin 500mg daily. * Overactive bladder - Oxybutynin 5mg daily. * Restless Leg syndrome - Mirapex 0.75mg qhs. * Depression - Sertraline 50mg daily, stable chronic long term care administrator use, GDR not recommended. 12/15/222029 <Electronically signed by Gustavo Justice MD> Cosigner Signature (if applicable): CC: Dr. Gustavo Justice MD; Dr. Jalyn Smith MD~ Signed [facility] Work Phone: 1(550) 408-516207-10-2023 History of Present illness Narrative* Selene Anaya RN - 12/15/2022 2:53 PM EDT CDM Telephonic Outreach Provider Action/FYI Spoke to daughter Karson; pt admitted at [facility] for UTI Tentative discharge today to [facility] for PT will f/u next month Contacted for: Routine Telephonic Outreach Contact made with patient: Yes Patient identified by name and date of . Discussed care with daughter Are you experiencing any new or worsening symptoms you need to talk about today? No Care Coordination next call-1 Last CDM outreach contact: 10/14 -COPD 12/13 - spoke to daughter Karson. Pt admitted. See FYI box PCP 12/10/22 Baseline: need ADL, FALL, GOAL due: 10/16/23 . Chronic disease goal - 10/15/22 -copd SDOH transportation and food insecurity completed: [facility] Discharge summary Author Chris Deshpande [facility] December 15, 2022 12:51pm Note Date/Time December 15, 2022 12:3 4pm [facility] Medical Records Department [address] [place] [address] Discharge Summary 12/15/22 1233 MR#: [id number] Acct: [id number] Name: KANDI CORREIA Rep #:[id number] : 1945 77 From: Chris Marie PCP: Dr. Jalyn Smith MD Status:ADM I NO [id number] Prov[facility] Date of Admission: 12/10/22 Date of Discharge: 12/15/22 Primary Care Physician: Dr. Jalyn Smith MD Consultations 12/11/22 05:03 Consult: Onc/Wound/instructional writer Routine Comment: Reason for Consult:: rt leg ulcer Reason For Visit: GENERALIZED WEAKNESS Diagnosis Discharge Diagnosis (1) CATHI (acute kidney injury): Status: Acute Code(s): N17.9 - Acute kidney failure, unspecified (2) Weakness: Status: Acute Code(s): R53.1 - Weakness (3) Falls: Status: Acute Code(s): W19.XXXA - Unspecified fall, initial encounter Qualifiers: Encounter type: initial encounter Qualified Code(s): W19.XXXA - Unspecified fall, initial encounter Plan This is a 27-year-old female this is 77-year-old female with history of COPD on 2 L of home oxygen was admitted for generalized weakness, recurrent fall decreased ADL. 5 days prior to admission patient fell down late down overnight until her daughter found her. Thereafter patient again fell down. She was alsotreated with antibiotic for UTI as an outpatient prior to admission. She also gets intermittent confusion. #CATHI -Creatinine on presentation was 1.55. Review of old records show that his creatinine 2021 was around 0.68. -Gentle IV hydration. BUN over creatinine is 30. -Last creatinine 0.74 on 12/12. CATHI resolved with IV fluid #Urinary colonization with Klebsiella: Patient does not have dysuria but has chronic partial retention with increased frequency. Urine culture shows Klebsiella [id number] colonies nonpathologic range. Patient was started on IV ceftriaxone in ED. I do not think patient had UTI after detailed history and discussion with daughter. Patient had 3 days of IV ceftriaxone. Antibiotic discontinued 12/14: I informed the patient's daughter that she does not have UTI symptoms because she does not have symptoms but colonization and she agrees. No further antibiotic. #Generalized weakness and falls -PT and OT to work with patient. -Case management consult. 12/13: Discussed with the bilingual patient support caseworker. 12/15: Pre-CERT was obtained and patient approved for SNF.. #Macrocytic anemia -Hemoglobin on presentation was 11.0 -Appears she intermittently has a hemoglobin between 11-12's -12/13: Iron panel with ferritin of 746 but iron of 39, TIBC 221, iron saturation 17.6. Suggestive of at least a component of chronic disease. Reticulocyte count 1.4% normal range. Immature reticulocyte fraction 16.4%. Does not seem patient has hemolysis or hypoproliferation. Anemia of chronic disease. Stool for occult blood positive. 12/14: Patient can follow-up with outpatient GI #Type 2 diabetes mellitus -Glucose checks and sliding scale insulin -Hold metformin #Hypertension -Blood pressure has been within goal. -Home blood pressure medication continued. -PRN Hydralazine ordered Resume home HCTZ, continue metoprolol #COPD with chronic hypoxic respiratory failure on 2 L home O2 -Not in exacerbation. -Continue home oxygen supplementation Resume home nebs and continue as needed Follow-up with pulmonary clinic Dr. Mayfield for PFT. #Knee OA -Supportive care DVT prophylaxis: lovenox sub q Discharge medication reconciliation done. Discharge follow-up instructions completed. Discharge process discussed with the patient and all questions wereanswered to patient's satisfaction. Total time spent, exact 35 minutes on discharge meds reconciliation, examination, coordination of care with nurses and ancillary staff, review of imaging and blood test and discussion with the patient on follow-up instructions. Medications at Discharge Home Medications albuterol sulfate 90 mcg/actuation aerosol inhaler 2 puff inhalation Q4H PRN Sob&/Or Wheezing 10/14/18 metformin 500 mg tablet 500 mg PO DAILY Blood sugar 10/14/18 ropinirole 0.5 mg tablet 1.5 mg PO QHS Restless leg 10/14/18 Oxygen ##1 10/27/18 ipratropium 0.5 mg-albuterol 3 mg (2.5 mg base)/3 mL nebulization soln 1 dose inhalation 4X/DAY Breathing 12/22/18 oxybutynin chloride 5 mg tablet 5 mg PO DAILY Bladder 07/25/21 sertraline 50 mg tablet 50 mg PO DAILY Mood 07/25/21 acetaminophen 500 mg tablet 1,000 mg (2 x 500 mg) PO Q6H PRN PRN Pain Score 1-3 #0 tabs 08/07/21 gabapentin 100 mg capsule 100 mg PO TIDCM 30 days #90 caps 08/07/21 arformoterol 15 mcg/2 mL solution for nebulization 15 mcg inhalation Q12H breathing 12/11/22 hydrochlorothiazide 25 mg tablet 25 mg PO DAILY #0 tabs 12/15/22 metoprolol succinate 50 mg tablet,extended release 24 hr 50 mg PO DAILY 30 days #0 tabs 12/15/22 Physical Exam Narrative Seen and examined. No fever. Discussed the hospital course with the daughter present in the room. Patient does not have burning micturition/dysuria. Patient has chronic increased frequency probably due to incomplete emptying of bladder/partial retention. Denies urgency. Physical exam General: Alert, Oriented x3, Cooperative HEENT: Atraumatic, PERRLA, EOMI, Normocephalic Oral: Oral mucosa moist. No Gingival or Mucosal Lesions/ Ulcerations Neck: Supple, No JVD, Negative Carotid Bruits Lungs: Air entry diminished in bilateral lung bases. No crepitation/rhonchi Cardiovascular: Regular rate, Regular Rhythm, Normal S1, Normal S2, No murmurs Abdomen: Bowel Sounds Present, Soft, Non Tender, Non-Distended : No dysuria. No renal angle tenderness. No suprapubic tenderness. Extremities: No edema, Capillary Refill Less than 3 Seconds Skin: No rashes, No breakdown Musculoskeletal: No Tenderness to Palpation of Joints or Extremities. Bilateralknee varus deformity from degenerative arthritis. ROM restricted. Muscle strength 4/5 at knee and hip joints. Neurological: Cranial nerves II-XII grossly intact, DTR 2+/4 and Symmetrical, Neuro grossly intact Psych/Mental Status: Normal Affect, Appropriate. Weight / BMI Weight Weight: 206 lb 9.17 oz Body Mass Index (BMI) 37.8 ABG / Lab / Microbiology Data 12/13/22 06:57 12/12/22 06:36 Laboratory: Laboratory Results - last 24 hr 12/14/22 16:29: POC Glucose 125 H 12/15/22 06:29: POC Glucose 148 H Microbiology: Microbiology 12/10/22 19:12 Urine, Clean Catch Urine Culture - Final Klebsiella aerogenes 12/11/22 09:30 Stool Stool Occult Blood (SHENA) - Final Occult Blood Positive Meaningful Use Info Meaningful Use Diagnoses (Choose all that apply): None applicable Discharge Plan Admission Admit Date/Time: 12/10/22 21:16 Primary Reason for Your Visit: Generalized weakness Attending Provider: Chris Deshpande Primary Care Provider: Jalyn Smith Consulting Providers: Burke Patterson; Angle Latham Instructions Patient Instructions: ED Fall Prevention Additional Instructions / Restrictions: DISCHARGE INSTRUCTIONS PLEASE READ *Please take this with you to your next doctors appointment* -Would recommend lab work (urinary analysis) to check for any further microscopic blood in your urine in 3-5 days through your primary care physician's office. Please call their office upon discharge to obtain order forlab work. -You will need to follow-up with Dr. Mae with GI in his office upon dischargefor further evaluation of microscopic blood in your stool. Please call his office to schedule an establish care appointment (ph. [phone]). If there is a significant delay in your achievable appointment time you can also be referred elsewhere through her primary care physician's office -You have both metoprolol succinate 50 mg daily and metoprolol tartrate 50 mg daily on your medication list. Would suggest taking metoprolol succinate 50 mg daily as this is the extended release version and discontinuing the metoprolol tartrate. A new prescription for metoprolol succinate will be sent into your preferred pharmacy on file. I will be very importantly do not take both of these at the same time as this can cause significant decrease in blood pressure and heart rate in combination that could be dangerous -Please call your primary care provider's office upon discharge to schedule a hospital follow up within 1 week. -For any concerning signs or symptoms please call 911 or proceed to the nearest emergency department Discharge Orders/Prescriptions Prescriptions: New hydrochlorothiazide 25 mg Tablet 25 mg PO DAILY Qty: 0 0RF Continued (DME) Oxygen 3 liters NC Qty: 1 Dose Instruction: As directed Patient Comments: says she uses 3-4L at home Rx Instructions: As directed metformin 500 mg tablet 500 mg PO DAILY albuterol sulfate 90 mcg/actuation HFA aerosol inhaler 2 puff INHALATION Q4H PRN (Reason: Sob &/Or Wheezing) ropinirole 0.5 mg tablet 1.5 mg PO QHS ipratropium-albuterol 0.5-3MG/3 solution for nebulization 1 dose inhalation 4X/DAY oxybutynin chloride 5 mg Tablet 5 mg PO DAILY sertraline 50 mg Tablet 50 mg PO DAILY acetaminophen 500 mg Tablet 1,000 mg PO Q6H PRN PRN (Reason: Pain Score 1-3) Qty: 0 0RF gabapentin 100 mg Capsule 100 mg PO TIDCM 30 Days Qty: 90 0RF arformoterol 15 mcg/2 mL solution for nebulization 15 mcg INHALATION Q12H Changed metoprolol succinate 50 mg tablet extended release 24 hr 50 mg PO DAILY 30 Days Qty: 0 0RF Rx Instructions: Hold for heart less than 50 or systolic blood pressure less than 100 mmHg. Discontinued meloxicam 7.5 mg tablet 7.5 mg PO DAILY budesonide 0.5 MG/2ML suspension for nebulization 1 dose inhalation BID metoprolol tartrate 50 mg Tablet 50 mg PO DAILY hydrochlorothiazide 12.5 mg capsule 25 mg PO DAILY sennosides-docusate sodium [Stool Softener-Stimulant Laxat] 8.6-50 mg Tablet 1 tab PO BID 30 Days Qty: 60 0RF Hold Instructions: MD Ordered oxycodone 5 mg Tablet 5 mg PO Q4H PRN PRN (Reason: Pain Score 6-10) 7 Days Qty: 42 0RF cephalexin [cephalexin] 500 MG capsule 500 mg PO Q6 Qty: 40 0RF Hold Instructions: MD Ordered Referrals / Follow Up: Jostin Mayfield DO [Med Staff - Active Staff] - Within 1 Month (copd) Jalyn Smith MD [Primary Care Provider] - Kade Mae DO [Med Staff - Active Staff] - Within 1 Month (for stool occultblood positive) Disposition Disposition (needs filled in before D/C Order can be placed): Long-Term Facility Charges/Coding Visit Charges Inpatient E&M: 18893 Disch Hosp >30min 12/15/22 1251 <Electronically signed by Chris Deshpande MD> Cosigner Signature (if applicable): CC: Dr. Chris Deshpande MD; Dr. Jalyn Smith MD~ Signed [facility] Work Phone: 1(113) 445-415507-10-2023 Discharge summary Author Chris Deshpande [facility] December 15, 2022 2:14pm Note Date/Time December 15, 2022 12:2 6pm [facility] Medical Records Department [address] [place] [id number] Transfer to [facility] MR#: [id number] Acct: [id number] Name: KANDI CORREIA Rep #:[id number] : 1945 77 From: Chris Marie PCP: Dr. Jalyn Smith MD Status:ADM I NO Certification of patient admission REQUIRED AT TIME OF ADMISSION. I CERTIFY THAT POST-HOSPITAL ECF SERVICES ARE REQUIRED TO BE GIVEN ON AN IN-PATIENT BASIS BECAUSE OF THE ABOVE NAMED PATIENT'S NEED FOR JAIL CARE ON A CONTINUING BASIS FOR THE CONDITION(S) FOR WHICH HE/SHE WAS RECEIVINGIN-PATIENT HOSPITAL SERVICES PRIOR TO HIS/HER TRANSFER TO THE ECF. 12/15/22 1232<Electronically signed by Chris Deshpande MD> Diet Diet Order/Speech Therapy: 12/10/22 23:37 Diet: Consistent Carb - Calorie Controlled Food consistency:: Regular Liquid Consistency:: Regular/Thin How many daily calories?: 1800 calorie Routine Orders/Code Status Suppository Type: Dulcolax 10mg Suppository Frequency: Daily PRN Routine Lab Work: BMP (Once a week for 2 weeks then monthly while patient on HCTZ) Code Status: DNRCC-A (With intubation) Wound(s) Right calf: Wound Type: Stasis Ulcer right posterior lower leg: Wound Type: Stasis Ulcer Dressing Change: hydrogel with dry dressing Therapies Weight Bearing: Weight bearing as tolerated Extremity Affected:: Bilateral Lower Physical Therapy: Eval and Treat Occupational Therapy: Eval and Treat Speech Therapy: Eval and Treat Problem/Diagnosis (1) CATHI (acute kidney injury): Status: Acute Code(s): N17.9 - Acute kidney failure, unspecified (2) Weakness: Status: Acute Code(s): R53.1 - Weakness (3) Falls: Status: Acute Code(s): W19.XXXA - Unspecified fall, initial encounter Plan #CATHI -Creatinine on presentation was 1.55. Review of old records show that his creatinine 2021 was around 0.68. -Gentle IV hydration. BUN over creatinine is 30. -Trend BMP -Avoid nephrotoxic's. CATHI resolved with IV fluid #Urinary colonization with Klebsiella: Patient does not have dysuria but has chronic partial retention with increased frequency. Urine culture shows Klebsiella [id number] colonies nonpathologic range. Patient was started on IV ceftriaxone in ED. I do not think patient had UTI after detailed history and discussion with daughter. Patient had 3 days of IV ceftriaxone. Antibiotic discontinued 12/14: I informed the patient's daughter that she does not have UTI symptoms because she does not have symptoms but colonization and she agrees. No further antibiotic. #Generalized weakness and falls -PT and OT to work with patient. -Case management consult. 12/13: Discussed with the bilingual patient support caseworker. Pre-CERT pending. #Macrocytic anemia -Hemoglobin on presentation was 11.0 -Appears she intermittently has a hemoglobin between 11-12's -12/13: Iron panel with ferritin of 746 but iron of 39, TIBC 221, iron saturation 17.6. Suggestive of at least a component of chronic disease. Reticulocyte count 1.4% normal range. Immature reticulocyte fraction 16.4%. Does not seem patient has hemolysis or hypoproliferation. Anemia of chronic disease. Stool for occult blood positive. 12/14: Patient can follow-up with outpatient GI #Type 2 diabetes mellitus -Glucose checks and sliding scale insulin -Hold metformin #Hypertension -Blood pressure has been within goal. -Home blood pressure medication continued. -PRN Hydralazine ordered Resume home HCTZ, continue metoprolol #COPD with chronic hypoxic respiratory failure on 2 L home O2 -Not in exacerbation. -Continue home oxygen supplementation Resume home nebs and continue as needed #Knee OA -Supportive care DVT prophylaxis: lovenox sub q Allergies/Procedures Done in Hospital Allergies lisinopril Adverse Reaction (Intermediate, Verified 12/10/22 23:21) cough pregabalin [From Lyrica] Adverse Reaction (Verified 12/10/22 23:21) Swelling Type of Care/Length of Stay Estimated LOS: Convalescent Care Less Than 30 days Type of Care Needed: Skilled Rehab Potential: Good Prognosis: Good Additional Orders/Day of Discharge Day of Discharge: 12/15/22 Discharge Plan Admission Admit Date/Time: 12/10/22 21:16 Primary Reason for Your Visit: Generalized weakness Attending Provider: Chris Deshpande Primary Care Provider: Jalyn Smith Consulting Providers: Burke Patterson; Angle Latham Instructions Patient Instructions: ED Fall Prevention Additional Instructions / Restrictions: DISCHARGE INSTRUCTIONS PLEASE READ *Please take this with you to your next doctors appointment* -Would recommend lab work (urinary analysis) to check for any further microscopic blood in your urine in 3-5 days through your primary care physician's office. Please call their office upon discharge to obtain order forlab work. -You will need to follow-up with Dr. Mae with GI in his office upon dischargefor further evaluation of microscopic blood in your stool. Please call his office to schedule an establish care appointment (ph. [phone]). If there is a significant delay in your achievable appointment time you can also be referred elsewhere through her primary care physician's office -You have both metoprolol succinate 50 mg daily and metoprolol tartrate 50 mg daily on your medication list. Would suggest taking metoprolol succinate 50 mg daily as this is the extended release version and discontinuing the metoprolol tartrate. A new prescription for metoprolol succinate will be sent into your preferred pharmacy on file. I will be very importantly do not take both of these at the same time as this can cause significant decrease in blood pressure and heart rate in combination that could be dangerous -Please call your primary care provider's office upon discharge to schedule a hospital follow up within 1 week. -For any concerning signs or symptoms please call 911 or proceed to the nearest emergency department Discharge Orders/Prescriptions Prescriptions: New hydrochlorothiazide 25 mg Tablet 25 mg PO DAILY Qty: 0 0RF Continued (DME) Oxygen 3 liters NC Qty: 1 Dose Instruction: As directed Patient Comments: says she uses 3-4L at home Rx Instructions: As directed metformin 500 mg tablet 500 mg PO DAILY albuterol sulfate 90 mcg/actuation HFA aerosol inhaler 2 puff INHALATION Q4H PRN (Reason: Sob &/Or Wheezing) ropinirole 0.5 mg tablet 1.5 mg PO QHS ipratropium-albuterol 0.5-3MG/3 solution for nebulization 1 dose inhalation 4X/DAY oxybutynin chloride 5 mg Tablet 5 mg PO DAILY sertraline 50 mg Tablet 50 mg PO DAILY acetaminophen 500 mg Tablet 1,000 mg PO Q6H PRN PRN (Reason: Pain Score 1-3) Qty: 0 0RF gabapentin 100 mg Capsule 100 mg PO TIDCM 30 Days Qty: 90 0RF arformoterol 15 mcg/2 mL solution for nebulization 15 mcg INHALATION Q12H Changed metoprolol succinate 50 mg tablet extended release 24 hr 50 mg PO DAILY 30 Days Qty: 0 0RF Rx Instructions: Hold for heart less than 50 or systolic blood pressure less than 100 mmHg. Discontinued meloxicam 7.5 mg tablet 7.5 mg PO DAILY budesonide 0.5 MG/2ML suspension for nebulization 1 dose inhalation BID metoprolol tartrate 50 mg Tablet 50 mg PO DAILY hydrochlorothiazide 12.5 mg capsule 25 mg PO DAILY sennosides-docusate sodium [Stool Softener-Stimulant Laxat] 8.6-50 mg Tablet 1 tab PO BID 30 Days Qty: 60 0RF Hold Instructions: MD Ordered oxycodone 5 mg Tablet 5 mg PO Q4H PRN PRN (Reason: Pain Score 6-10) 7 Days Qty: 42 0RF cephalexin [cephalexin] 500 MG capsule 500 mg PO Q6 Qty: 40 0RF Hold Instructions: MD Ordered Referrals / Follow Up: Jalyn Smith MD [Primary Care Provider] - Jostin Mayfield DO [Med Staff - Active Staff] - Within 1 Month (copd) (3) Falls Qualifiers: Encounter type: initial encounter Qualified Code(s): W19.XXXA - Unspecified fall, initial encounter 12/15/22 1232 <Electronically signed by Chris Deshpande MD> Cosigner Signature (if applicable): CC: Dr. Burke Patterson MD; Dr. Angle Latham MD; Dr. Jalyn Smith MD ~ ADDENDUM by Dr. Chris Deshpande MD on 12/15/22 at 1414 Addendum . 12/15/22 1414 <Electronically signed by Chris Deshpande MD> cc: Dr. Burke Patterson MD; Dr. Angle Latham MD; Dr. Jalyn Smith MD ~* Signed [facility] Work Phone: 1(204) 544-574207-09-2023 Progress note Author Chris Deshpande [facility] December 14, 2022 12:30pm Note Date/Time December 14, 2022 12:30 pm [facility] Medical Records Department [address] [place] [id number] Progress Note - Hospitalist 12/14/22 1226 MR#: [id number] Acct: [id number] Name: KANDI CORREIA Rep #:[id number] : 1945 77 From: Chris Marie PCP: Dr. Jalyn Smith MD Status:ADM I NO Location: [place] [address] Reason for Visit Reason for Visit: Diagnoses Other specified anemias (12/10/22) Type 2 diabetes mellitus with diabetic polyneuropathy (12/10/22) Essential (primary) hypertension (12/10/22) Chronic obstructive pulmonary disease, unspecified (12/10/22) Acute kidney failure, unspecified (12/10/22) Weakness (12/10/22) Unspecified fall, initial encounter (12/10/22) Subjective Subjective Follow-up for failure to thrive generalized weakness. To the patient's daughternear the bedside. Objective Data Objective Data Vital Signs: Vital Signs Temp Pulse Resp BP Pulse Ox O2 Del Method O2 Flow Rate 97.6 F L 94 16 137/66 H 98 Nasal Cannula 3 12/14/22 02:40 12/14/22 11:14 12/14/22 11:14 12/14/22 08:39 12/14/22 09:57 12/14/22 07:26 12/14/22 09:57 Oxygen Flow Rate (L/min) 3 Oxygen Delivery Method Nasal Cannula Weight: 206 lb 9.17 oz Body Mass Index (BMI) 37.8 Intake & Output: Intake and Output for Last 24 Hours 12/12/22 12/13/22 12/14/22 23:59 23:59 23:59 Intake Total 1750 / 1750 50 / 50 280 / 280 Output Total 1050 / 1450 900 / 1300 850 / 850 Balance 700 / 300 -850 / -1250 -570 / -570 Lab / Micro Data 12/13/22 06:57 12/12/22 06:36 Labs: Laboratory Results - last 24 hr 12/13/22 16:25: POC Glucose 224 H 12/13/22 21:40: POC Glucose 136 H 12/14/22 06:29: POC Glucose 140 H 12/14/22 11:40: POC Glucose 129 H Micro: Microbiology 12/10/22 19:12 Urine, Clean Catch Urine Culture - Final Klebsiella aerogenes 12/11/22 09:30 Stool Stool Occult Blood (SHENA) - Final Occult Blood Positive Physical Exam Narrative Seen and examined. Patient does not have burning micturition/dysuria again confirmed with the patient. Patient has chronic increased frequency probably due to incomplete emptying of bladder/partial retention. Denies urgency. No fever. Discussed with the patient's daughter. Physical exam General: Alert, Oriented x3, Cooperative HEENT: Atraumatic, PERRLA, EOMI, Normocephalic Oral: No Gingival or Mucosal Lesions/ Ulcerations Neck: Supple, No JVD, Negative Carotid Bruits Lungs: Air entry diminished in bilateral lung bases. No crepitation/rhonchi Cardiovascular: Regular rate, Regular Rhythm, Normal S1, Normal S2, No murmurs Abdomen: Bowel Sounds Present, Soft, Non Tender, Non-Distended : No renal angle tenderness. No suprapubic tenderness. Extremities: No edema, Capillary Refill Less than 3 Seconds Skin: No rashes, No breakdown Musculoskeletal: No Tenderness to Palpation of Joints or Extremities. Bilateralknee varus deformity from degenerative arthritis. ROM restricted. Muscle strength 4/5 at knee and hip joints. Neurological: Cranial nerves II-XII grossly intact, DTR 2+/4 and Symmetrical, Neuro grossly intact Psych/Mental Status: Normal Affect, Appropriate. Assessment & Plan Assessment/Plan (1) CATHI (acute kidney injury): (2) Weakness: (3) Falls: QUALIFIERS: Encounter type: initial encounter Qualified Code(s): W19.XXXA - Unspecified fall, initial encounter PLAN: Plan #CATHI -Creatinine on presentation was 1.55. Review of old records show that his creatinine 2021 was around 0.68. -Gentle IV hydration. BUN over creatinine is 30. -Trend BMP -Avoid nephrotoxic's. CATHI resolved with IV fluid #Urinary colonization with Klebsiella: Patient does not have dysuria but has chronic partial retention with increased frequency. Urine culture shows Klebsiella [phone] colonies nonpathologic range. Patient was started on IV ceftriaxone in ED. I do not think patient had UTI after detailed history and discussion with daughter. Patient had 3 days of IV ceftriaxone. Antibiotic discontinued 12/14: I informed the patient's daughter that she does not have UTI symptoms because she does not have symptoms but colonization and she agrees. No further antibiotic. #Generalized weakness and falls -PT and OT to work with patient. -Case management consult. 12/13: Discussed with the bilingual patient support caseworker. Pre-CERT pending. #Macrocytic anemia -Hemoglobin on presentation was 11.0 -Appears she intermittently has a hemoglobin between 11-12's -12/13: Iron panel with ferritin of 746 but iron of 39, TIBC 221, iron saturation 17.6. Suggestive of at least a component of chronic disease. Reticulocyte count 1.4% normal range. Immature reticulocyte fraction 16.4%. Does not seem patient has hemolysis or hypoproliferation. Anemia of chronic disease. Stool for occult blood positive. 12/14: Patient can follow-up with outpatient GI #Type 2 diabetes mellitus -Glucose checks and sliding scale insulin -Hold metformin #Hypertension -Blood pressure has been within goal. -Home blood pressure medication continued. -PRN Hydralazine ordered Resume home HCTZ, continue metoprolol #COPD with chronic hypoxic respiratory failure on 2 L home O2 -Not in exacerbation. -Continue home oxygen supplementation Resume home nebs and continue as needed #Knee OA -Supportive care DVT prophylaxis: lovenox sub q Charges/Coding Visit Charges Inpatient E&M: 64723 Subs Hosp L2 12/14/22 1230 <Electronically signed by Chris Deshpande MD> Cosigner Signature (if applicable): CC: ~ Signed [facility] Work Phone: 1(387) 923-992707-08-2023 Progress note Author Chriselver Deshpande [facility] December 13, 2022 5:01pm Note Date/Time December 13, 2022 7:55a [facility] Medical Records Department [address] [place] [id number] Progress Note - Hospitalist 12/13/22 0755 MR#: [id number] Acct: [id number] Name: KANDI CORREIA Rep #:[id number] : 1945 77 From: Chris Marie PCP: Dr. Jalyn Smith MD Status:ADM I NO Location: [place] [address] Reason for Visit Reason for Visit: Diagnoses Other specified anemias (12/10/22) Type 2 diabetes mellitus with diabetic polyneuropathy (12/10/22) Essential (primary) hypertension (12/10/22) Chronic obstructive pulmonary disease, unspecified (12/10/22) Acute kidney failure, unspecified (12/10/22) Weakness (12/10/22) Unspecified fall, initial encounter (12/10/22) Objective Data Objective Data Vital Signs: Vital Signs Temp Pulse Resp BP Pulse Ox O2 Del Method O2 Flow Rate 97.8 F 85 16 150/80 H 98 Nasal Cannula 3 12/13/22 02:45 12/13/22 07:07 12/13/22 07:07 12/13/22 02:45 12/13/22 07:07 12/13/22 07:07 12/13/22 07:07 Oxygen Flow Rate (L/min) 3 Oxygen Delivery Method Nasal Cannula Weight: 206 lb 9.17 oz Body Mass Index (BMI) 37.8 Intake & Output: Intake and Output for Last 24 Hours 12/11/22 12/12/22 12/13/22 23:59 23:59 23:59 Intake Total 1432.5 / 1432.5 1750 / 1750 Output Total 1950 / 1950 1050 / 1450 900 / 900 Balance -517.5 / -517.5 700 / 300 -900 / -900 Lab / Micro Data 12/13/22 06:57 12/12/22 06:36 Labs: Laboratory Results - last 24 hr 12/12/22 12:25: POC Glucose 171 H 12/12/22 16:44: POC Glucose 120 H 12/12/22 21:18: POC Glucose 146 H 12/13/22 06:35: POC Glucose 130 H 12/13/22 06:57: WBC 8.4, RBC 3.54 L, Hgb 10.8 L, Hct 35.5 L, MCV 100.3 H, MCH 30.5, MCHC 30.4 L, RDW Std Deviation 48.5 H, RDW Coeff of Stephenie 13.1, Plt Count 304, MPV 9.2, Immature Gran % (Auto) 3.400 H, Neut % (Auto) 74.0 H, Lymph % (Auto) 10.3 L, [place] % (Auto) 9.5, Eos % (Auto) 2.1, Baso % (Auto) 0.7, Absolute Neuts (auto) 6.2, Absolute Lymphs (auto) 0.87, Nucleated RBC % 0 Micro: Microbiology 12/10/22 19:12 Urine, Clean Catch Urine Culture - Final Klebsiella aerogenes 12/11/22 09:30 Stool Stool Occult Blood (SHENA) - Final Occult Blood Positive Physical Exam Narrative Seen and examined. Patient does not have burning micturition/dysuria. Patient has chronic increased frequency probably due to incomplete emptying of bladder/partial retention. Denies urgency. No fever. Physical exam General: Alert, Oriented x3, Cooperative HEENT: Atraumatic, PERRLA, EOMI, Normocephalic Oral: No Gingival or Mucosal Lesions/ Ulcerations Neck: Supple, No JVD, Negative Carotid Bruits Lungs: Air entry diminished in bilateral lung bases. No crepitation/rhonchi Cardiovascular: Regular rate, Regular Rhythm, Normal S1, Normal S2, No murmurs Abdomen: Bowel Sounds Present, Soft, Non Tender, Non-Distended : No renal angle tenderness. No suprapubic tenderness. Extremities: No edema, Capillary Refill Less than 3 Seconds Skin: No rashes, No breakdown Musculoskeletal: No Tenderness to Palpation of Joints or Extremities Neurological: Cranial nerves II-XII grossly intact, DTR 2+/4 and Symmetrical, Neuro grossly intact Psych/Mental Status: Normal Affect, Appropriate. Assessment & Plan Assessment/Plan (1) CATHI (acute kidney injury): (2) Diabetes mellitus: QUALIFIERS: Diabetes mellitus complication detail: with polyneuropathy Diabetes mellitus complication status: with neurologic complications Diabetes mellitus long term care administrator insulin use: without long term care administrator use Diabetes mellitus type: type 2 Qualified Code(s): E11.42 - Type 2 diabetes mellitus with diabetic polyneuropathy (3) Hypertension: QUALIFIERS: Hypertension type: primary hypertension Qualified Code(s): I10 - Essential (primary) hypertension (4) Chronic obstructive pulmonary disease: QUALIFIERS: COPD type: unspecified COPD Qualified Code(s): J44.9 - Chronic obstructive pulmonary disease, unspecified (5) Weakness: (6) Falls: QUALIFIERS: Encounter type: initial encounter Qualified Code(s): W19.XXXA - Unspecified fall, initial encounter (7) Anemia: QUALIFIERS: Anemia type: other cause Other causes of anemia: other cause, not classified Qualified Code(s): D64.89 - Other specified anemias PLAN: Plan #CATHI -Creatinine on presentation was 1.55. Review of old records show that his creatinine 2021 was around 0.68. -Gentle IV hydration. BUN over creatinine is 30. -Trend BMP -Avoid nephrotoxic's. CATHI resolved with IV fluid #Urinary colonization with Klebsiella: Patient does not have dysuria but has chronic partial retention with increased frequency. Urine culture shows Klebsiella [id number] colonies nonpathologic range. Patient was started on IV ceftriaxone in ED. I do not think patient had UTI after detailed history and discussion with daughter. Patient had 3 days of IV ceftriaxone. Antibiotic discontinued #Generalized weakness and falls -PT and OT to work with patient. -Case management consult. 12/13: Discussed with the bilingual patient support caseworker. Pre-CERT pending. #Macrocytic anemia -Hemoglobin on presentation was 11.0 -Appears she intermittently has a hemoglobin between 11-12's -12/11: Iron panel with ferritin of 746 but iron of 39, TIBC 221, iron saturation 17.6. Suggestive of at least a component of chronic disease. Reticulocyte count 1.4% normal range. Immature reticulocyte fraction 16.4%. Does not seem patient has hemolysis or hypoproliferation. Anemia of chronic disease. Stool for occult blood positive. #Type 2 diabetes mellitus -Glucose checks and sliding scale insulin -Hold metformin #Hypertension -Blood pressure has been within goal. -Home blood pressure medication continued. -PRN Hydralazine ordered Resume home HCTZ, continue metoprolol #COPD with chronic hypoxic respiratory failure on 2 L home O2 -Not in exacerbation. -Continue home oxygen supplementation Resume home nebs and continue as needed #Knee OA -Supportive care DVT prophylaxis: lovenox sub q Charges/Coding Visit Charges Inpatient E&M: 56766 Subs Hosp L2 12/13/22 1701 <Electronically signed by Chris Deshpande MD> Cosigner Signature (if applicable): CC: ~ Signed [facility] Work Phone: [phone]) 797-476807-07-2023 Progress note Author Angle Latham [facility] December 12, 2022 4:23pm Note Date/Time December 12, 2022 4:24p [facility] Medical Records Department [address] [place] [id number] Progress Note - Hospitalist 12/12/22 1618 MR#: [id number] Acct: [id number] Name: KANDI CORREIA Rep #:[id number] : 1945 77 From: Angle Latham MD PCP: Dr. Jalyn Smith MD Status:ADM I NO Location: [address] Reason for Visit Reason for Visit: Diagnoses Other specified anemias (12/10/22) Type 2 diabetes mellitus with diabetic polyneuropathy (12/10/22) Essential (primary) hypertension (12/10/22) Chronic obstructive pulmonary disease, unspecified (12/10/22) Acute kidney failure, unspecified (12/10/22) Weakness (12/10/22) Unspecified fall, initial encounter (12/10/22) Subjective Subjective Patient still slightly weak but feeling better than she had been, reports feeling full Objective Data Objective Data Vital Signs: Vital Signs Temp Pulse Resp BP Pulse Ox O2 Del Method O2 Flow Rate 98.7 F 85 18 172/96 H 99 Nasal Cannula 3 12/12/22 09:30 12/12/22 10:59 12/12/22 10:59 12/12/22 09:30 12/12/22 09:30 12/12/22 09:38 12/12/22 13:30 Oxygen Flow Rate (L/min) 3 Oxygen Delivery Method Nasal Cannula Weight: 93.7 kg Body Mass Index (BMI) 37.8 Intake & Output: Intake and Output for Last 24 Hours 12/10/22 12/11/22 12/12/22 23:59 23:59 23:59 Intake Total 850 / 850 1432.5 / 1432.5 1500 / 1500 Output Total 600 / 600 1950 / 1950 1050 / 1050 Balance 250 / 250 -517.5 / -517.5 450 / 450 Lab / Micro Data 12/12/22 06:36 12/12/22 06:36 Labs: Laboratory Results - last 24 hr 12/11/22 17:16: POC Glucose 115 H 12/11/22 21:45: POC Glucose 138 H 12/12/22 06:15: POC Glucose 153 H 12/12/22 06:36: WBC 7.6, RBC 3.41 L, Hgb 10.4 L, Hct 34.2 L, MCV 100.3 H, MCH 30.5, MCHC 30.4 L, RDW Std Deviation 48.1 H, RDW Coeff of Stephenie 13.0, Plt Count 277, MPV 8.9, Immature Gran % (Auto) 4.100 H, Neut % (Auto) 72.2 H, Lymph % (Auto) 9.9 L, [place] % (Auto) 11.3 H, Eos % (Auto) 1.6, Baso % (Auto) 0.9, Absolute Neuts (auto) 5.5, Absolute Lymphs (auto) 0.75 L, Nucleated RBC % 0, Sodium 140, Potassium 3.8, Chloride 98, Carbon Dioxide 38.0 H, Anion Gap 4 L, BUN 17, Creatinine 0.74, Estim Creat Clear Calc 38.44, Est GFR (MDRD) Af Amer 99, Est GFR (MDRD) Non-Af 82, BUN/Creatinine Ratio 23.0 H, Glucose 139 H, Calcium 8.7 12/12/22 12:25: POC Glucose 171 H Micro: Microbiology 12/10/22 19:12 Urine, Clean Catch Urine Culture - Final Klebsiella aerogenes 12/11/22 09:30 Stool Stool Occult Blood (SHENA) - Final Occult Blood Positive Physical Exam Narrative General: Alert, oriented, no apparent distress HEENT: Atraumatic, normocephalic Eyes: Anicteric, normal conjunctiva, extraocular movements grossly intact Neck: Supple Respiratory: Somewhat diminished bilaterally, normal respiratory effort Cardiovascular: Regular rate GI: Soft, nontender, nondistended Extremities: No edema Musculoskeletal: Moving all extremities Neuro: No overt focal neurological deficits Skin: No rashes appreciated Psych: Cooperative Assessment & Plan Assessment/Plan (1) CATHI (acute kidney injury): (2) Diabetes mellitus: QUALIFIERS: Diabetes mellitus type: type 2 Diabetes mellitus fdc insulin use: without fpc use Diabetes mellitus complication status: with neurologic complications Diabetes mellitus complication detail: with polyneuropathy Qualified Code(s): E11.42 - Type 2 diabetes mellitus with diabetic polyneuropathy (3) Hypertension: QUALIFIERS: Hypertension type: primary hypertension Qualified Code(s): I10 - Essential (primary) hypertension (4) Chronic obstructive pulmonary disease: QUALIFIERS: COPD type: unspecified COPD Qualified Code(s): J44.9 - Chronic obstructive pulmonary disease, unspecified (5) Weakness: (6) Falls: QUALIFIERS: Encounter type: initial encounter Qualified Code(s): W19.XXXA - Unspecified fall, initial encounter (7) Anemia: QUALIFIERS: Anemia type: other cause Other causes of anemia: other cause, not classified Qualified Code(s): D64.89 - Other specified anemias PLAN: Plan #CATHI -Creatinine on presentation was 1.55. Review of old records show that his creatinine 2021 was around 0.68. -Gentle IV hydration. BUN over creatinine is 30. -Trend BMP -Avoid nephrotoxic's. -12/11: Resolved with IV fluids and supportive care, suspect this was a large contributing factor to her weakness -12/12: Resolved, patient improving #UTI -Improving -Started on ceftriaxone at the emergency department and continued emergency department -Continue -12/11: Diagnosed on outpatient basis and was already on antibiotics on presentation, will finish antibiotic course. Did have some protein and blood inurine which may be from resolving UTI, would recommend repeating UA on an outpatient basis to verify no further blood/need for further work-up -12/12: Per daughter she was scheduled on 2 more days of medication, there is no bacteria in her urine and UA not convincing for new UTI on admission and no further symptoms, unclear clinical significance of Klebsiella in urine with 11,020 5000 colony count never given clinical improvement and other reason for weakness we will give 1 more day of Rocephin and DC to complete original course #Generalized weakness and falls -PT and OT to work with patient. -Case management consult. Check vitamin D -12/12: Patient go to SNF, TCU pending acceptance and pre-CERT #Macrocytic anemia -Hemoglobin on presentation was 11.0 -Appears she intermittently has a hemoglobin between 11-12's -12/11: Iron panel with ferritin of 746 but iron of 39, TIBC 221, iron saturation 17.6. Suggestive of at least a component of chronic disease and her reticulocyte index is 1.21 and given this is less than 2 it indicates hypoproliferation. Patient somewhat poor historian but said she thinks she may have had some dark stools intermittently for couple weeks though cannot describeany further than that and was not sure if she has ever had any bright red blood. Had a Cologuard a year ago she reports that was negative for blood. Her bowel movement that the FOBT was sent from was brown without blood or black. FOBT positive unclear clinical significance given stability of hemoglobin and mixed picture, with no acute blood loss, likely follow-up for colonoscopy as an outpatient especially given it is more likely UTI and CATHI/volume depletion in addition to her OA were causing the weakness but will continue to monitor CBC -12/12: Hemoglobin stable, do not think she has an acute bleed, stool today not black or with any red. Outpatient follow-up advised for an elective scope or work-up #Type 2 diabetes mellitus -Glucose checks and sliding scale insulin -Hold metformin #Hypertension -Blood pressure has been within goal. -Home blood pressure medication continued. -PRN Hydralazine ordered -12/12: Resume home HCTZ, continue metoprolol #COPD with chronic hypoxic respiratory failure on 2 L home O2 -Not in exacerbation. -Continue home oxygen supplementation -12/12: Resume home nebs and continue as needed #Knee OA -Supportive care DVT prophylaxis: lovenox sub q Charges/Coding Visit Charges Inpatient E&M: 85636 Subs Hosp L2 12/12/22 1623 <Electronically signed by Angle Latham MD> Cosigner Signature (if applicable): CC: ~ Signed [facility] Work Phone: 1(251) 141-214607-06-2023 Progress note Author Angle Latham [facility] December 11, 2022 2:51pm Note Date/Time December 11, 2022 11:20 am [facility] Medical Records Department [address] [place] [address] Progress Note - Hospitalist 12/11/22 1115 MR#: [id number] Acct: [id number] Name: KANDI CORREIA Rep #:[id number] : 1945 77 From: Angle Latham MD PCP: Dr. Jalyn Smith MD Status:ADM I NO Location: CT3 [id number] Reason for Visit Reason for Visit: Diagnoses Other specified anemias (12/10/22) Type 2 diabetes mellitus with diabetic polyneuropathy (12/10/22) Essential (primary) hypertension (12/10/22) Chronic obstructive pulmonary disease, unspecified (12/10/22) Acute kidney failure, unspecified (12/10/22) Weakness (12/10/22) Unspecified fall, initial encounter (12/10/22) Subjective Subjective For slightly stronger than yesterday and slightly better than she had been, still weak overall. Somewhat poor historian when it comes to symptomatology andsaid she might of had some intermittent black stools for a couple weeks but she is not sure, sample that was sent down to the lab per nurse was brown in color with no blackness or red blood noted. Objective Data Objective Data Vital Signs: Vital Signs Temp Pulse Resp BP Pulse Ox O2 Del Method O2 Flow Rate 97.7 F L 80 18 138/80 H 98 Nasal Cannula 3 12/11/22 08:39 12/11/22 08:39 12/11/22 08:39 12/11/22 08:39 12/11/22 08:39 12/11/22 08:51 12/11/22 08:39 Oxygen Flow Rate (L/min) 3 Oxygen Delivery Method Nasal Cannula Weight: 93.7 kg Body Mass Index (BMI) 37.8 Intake & Output: Intake and Output for Last 24 Hours 12/09/22 12/10/22 12/11/22 23:59 23:59 23:59 Intake Total 850 / 850 Output Total 600 / 600 1000 / 1000 Balance 250 / 250 -1000 / -1000 Lab / Micro Data 12/11/22 07:07 12/11/22 07:07 Labs: Laboratory Results - last 24 hr 12/10/22 18:30: WBC 11.1 H, RBC 3.60 L, Hgb 11.0 L, Hct 35.9 L, MCV 99.7 H, MCH 30.6, MCHC 30.6 L, RDW Std Deviation 46.9 H, RDW Coeff of Stephenie 12.7, Plt Count 306, MPV 9.4, Immature Gran % (Auto) 4.200 H, Neut % (Auto) 74.0 H, Lymph % (Auto) 8.7 L, [place] % (Auto) 12.0 H, Eos % (Auto) 0.6, Baso % (Auto) 0.5, Absolute Neuts (auto) 8.2 H, Absolute Lymphs (auto) 0.97, Nucleated RBC % 0, Sodium 135 L, Potassium 3.5, Chloride 90 L, Carbon Dioxide 39.0 H, Anion Gap 6, BUN 30 H, Creatinine 1.55 H, Estim Creat Clear Calc 24.80, Est GFR (MDRD) Af Amer 42 L, Est GFR (MDRD) Non-Af 35 L, BUN/Creatinine Ratio 19.4, Glucose 107 H,Lactic Acid 1.2, Calcium 9.6, Troponin I High Sens 11, B-Natriuretic Peptide 113.3 H 12/10/22 19:12: Urine Color Yellow, Urine Clarity Clear, Urine pH 7.0, Ur Specific Firestone 1.010, Urine Protein 30 H, Urine Glucose (UA) Normal, Urine Ketones 15 H, Urine Occult Blood 50 H, Urine Nitrite Negative, Urine Bilirubin Negative, Urine Urobilinogen Normal, Ur Leukocyte Esterase 100 H, Urine RBC 0-5 SEEN, Urine WBC 0-5 SEEN, Ur Squamous Epith Cells 0-5 SEEN, Urine Bacteria 0 SEEN, Urine Mucus 0 SEEN 12/11/22 00:04: POC Glucose 128 H 12/11/22 06:58: POC Glucose 130 H 12/11/22 07:07: WBC 9.9, RBC 3.61 L, Hgb 11.0 L, Hct 36.0 L, MCV 99.7 H, MCH 30.5, MCHC 30.6 L, RDW Std Deviation 46.1 H, RDW Coeff of Stephenie 12.7, Plt Count 288, MPV 8.9, Immature Gran % (Auto) 2.500 H, Neut % (Auto) 75.5 H, Lymph % (Auto) 7.8 L, [place] % (Auto) 12.8 H, Eos % (Auto) 0.8, Baso % (Auto) 0.6, Absolute Neuts (auto) 7.5, Absolute Lymphs (auto) 0.78 L, Nucleated RBC % 0, Retic Count 1.41, Immature Retic Fraction 16.40 H, Retic Hgb Equivalent 31.9, Sodium 140, Potassium 3.3 L, Chloride 96 L, Carbon Dioxide 40.0 H, Anion Gap 4 L, BUN 20 H, Creatinine 0.93, Estim Creat Clear Calc 41.34, Est GFR (MDRD) Af Amer 75, Est GFR (MDRD) Non-Af 62, BUN/Creatinine Ratio 21.5 H, Glucose 127 H, Calcium 9.2, Iron 39 L, TIBC 221 L, Iron Saturation 17.6, Ferritin 746 H, Vitamin B12 416, Vitamin D 25-Hydroxy 19.4, Folate 6.60 Micro: Microbiology 12/11/22 09:30 Stool Stool Occult Blood (SHENA) - Final Occult Blood Positive ABG Data ABG results: ABG 12/10/22 18:34 Specimen Type SANTA VBG pH 7.45 H VBG pO2 37 VBG HCO3 39 H VBG Total CO2 40 H VBG O2 Sat (Calc) 71 H VBG Base Excess 15 H POC Mix VBG pCO2 Pt Tmp 55.3 H O2 Delivery Device Cannula Liter Flow 3.0 Radiography Diagnostic Testing: Radiology Impression Chest X-Ray 12/10/22 18:45 IMPRESSION: There are no acute findings. Electronically Signed: Willie Lopes MD at 19:19 EDT , Physical Exam Narrative General: Alert, oriented, no apparent distress HEENT: Atraumatic, normocephalic Eyes: Anicteric, normal conjunctiva, extraocular movements grossly intact Neck: Supple Respiratory: Somewhat diminished bilaterally, normal respiratory effort Cardiovascular: Regular rate GI: Soft, nontender, nondistended Extremities: No edema Musculoskeletal: Moving all extremities Neuro: No overt focal neurological deficits Skin: No rashes appreciated Psych: Cooperative Assessment & Plan Assessment/Plan (1) CATHI (acute kidney injury): (2) Diabetes mellitus: QUALIFIERS: Diabetes mellitus complication detail: with polyneuropathy Diabetes mellitus complication status: with neurologic complications Diabetes mellitus long term care administrator insulin use: without long term care administrator use Diabetes mellitus type: type 2 Qualified Code(s): E11.42 - Type 2 diabetes mellitus with diabetic polyneuropathy (3) Hypertension: QUALIFIERS: Hypertension type: primary hypertension Qualified Code(s): I10 - Essential (primary) hypertension (4) Chronic obstructive pulmonary disease: QUALIFIERS: COPD type: unspecified COPD Qualified Code(s): J44.9 - Chronic obstructive pulmonary disease, unspecified (5) Weakness: (6) Falls: QUALIFIERS: Encounter type: initial encounter Qualified Code(s): W19.XXXA - Unspecified fall, initial encounter (7) Anemia: QUALIFIERS: Anemia type: other cause Other causes of anemia: other cause, not classified Qualified Code(s): D64.89 - Other specified anemias PLAN: Plan #CATHI -Creatinine on presentation was 1.55. Review of old records show that his creatinine 2021 was around 0.68. -Gentle IV hydration. BUN over creatinine is 30. -Trend BMP -Avoid nephrotoxic's. -12/11: Resolved with IV fluids and supportive care, suspect this was a large contributing factor to her weakness #UTI -Improving -Started on ceftriaxone at the emergency department and continued emergency department -Continue -12/11: Diagnosed on outpatient basis and was already on antibiotics on presentation, will finish antibiotic course. Did have some protein and blood inurine which may be from resolving UTI, would recommend repeating UA on an outpatient basis to verify no further blood/need for further work-up #Generalized weakness and falls -PT and OT to work with patient. -Case management consult. Check vitamin D #Macrocytic anemia -Hemoglobin on presentation was 11.0 -Appears she intermittently has a hemoglobin between 11-12's -12/11: Iron panel with ferritin of 746 but iron of 39, TIBC 221, iron saturation 17.6. Suggestive of at least a component of chronic disease and her reticulocyte index is 1.21 and given this is less than 2 it indicates hypoproliferation. Patient somewhat poor historian but said she thinks she may have had some dark stools intermittently for couple weeks though cannot describeany further than that and was not sure if she has ever had any bright red blood. Had a Cologuard a year ago she reports that was negative for blood. Her bowel movement that the FOBT was sent from was brown without blood or black. FOBT positive unclear clinical significance given stability of hemoglobin and mixed picture, with no acute blood loss, likely follow-up for colonoscopy as an outpatient especially given it is more likely UTI and CATHI/volume depletion in addition to her OA were causing the weakness but will continue to monitor CBC #Type 2 diabetes mellitus -Glucose checks and sliding scale insulin -Hold metformin #Hypertension -Blood pressure has been within goal. -Home blood pressure medication continued. -PRN Hydralazine ordered #COPD with chronic hypoxic respiratory failure on 2 L home O2 -Not in exacerbation. -Continue home inhalers. -Continue home oxygen supplementation #Knee OA -Supportive care DVT prophylaxis: SCDs Charges/Coding Visit Charges Inpatient E&M: 44025 Subs Hosp L2 12/11/22 1402 <Electronically signed by Angle Latham MD> Cosigner Signature (if applicable): CC: ~ Signed ADDENDUM by Dr. Angle Latham MD on 12/11/22 at 1451 Addendum Attempted to call daughter per her request at phone number provided but no answer, number compared to number on chart and they were the same. 12/11/22 1451<Electronically signed by Angle Latham MD> Cosigner Signature (if applicable): cc: ~* Signed [facility] Work Phone: 1(882) 723-317107-06-2023 Miscellaneous Notes* Telephone Encounter - Herminia Chen RN - 12/11/2022 3:50 PM EDT [facility] Provider Action/FYI: Nurse e learning manager Alma calling from [facility] to ask if patient has home care set up. Per notes 12/08/22 and 12/10/22 daughter asking about home health but no notes stating that this is set up. e learning manager made aware and states I would route this message to the rn care manager as well. Poonam, you've reached [facility], my name is Herminia Chen RN, I'm a registered nurse, and we are on a recorded line. Patient identified by name and date of Spoke with bilingual patient support caseworker Verify that the patient is a [facility] patient: Yes Are you having any symptoms today? No - What is the reason for call? General Questions/Other Need Call Disposition: Routed to [facility] Thank you for calling [facility]. If you develop any new symptoms, your condition worsens, then GO TO THE EMERGENCY ROOM OR CALL 911. If you have any questions, please call us back. documented in [facility] History and physical note Author Burke Patterson [facility] December 11, 2022 5:31am Note Date/Time December 10, 2022 9:25p m [facility] Medical Records Department [address] [place] [address] H&P Exam - Hospitalist 12/10/222124 MR#: [id number] Acct: [id number] Name: KANDI CORREIA Rep #:[id number] : 1945 77 From: Burke Patterson MD PCP: Dr. Jalyn Smith MD Status:ADM I NO Location: [facility] [id number] HPI - General General Date of Admission: 12/10/22 Date of Service: 12/10/22 Chief Complaint: WEAKNESS HPI Narrative KANDI CORREIA, is a 77 F with a significant history of COPD on 2 L nasal cannula oxygen who presents emergency department with weakness. Reportedly patient has been too weak that she has been falling. Five days before presentation patient fell and laid down overnight until her daughter found her. Thereafter she fell again. Reportedly she has been so weak that she is falling. 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 Further, she reports dark stools. Also had a before presentation she complained to her PCP of polyuria for which was started on antibiotics for UTI. Additionally has been confused. Her confusion has beenimproving. [facility] Medical History COPD (chronic obstructive pulmonary disease) Debility Degenerative disc disease, lumbar Depression Edema of both lower extremities Essential hypertension Fibromyalgia Generalized muscle weakness GERD (gastroesophageal reflux disease) Morbid obesity with BMI of 40.0-44.9, adult Muscle spasm MICHEL (obstructive sleep apnea) Osteoarthritis Right knee pain RLS (restless legs syndrome) Type 2 diabetes mellitus without complication Venous stasis ulcer of left lower leg with edema of left lower leg Home Medications albuterol sulfate 90 mcg/actuation aerosol inhaler 2 puff inhalation Q4H PRN Sob&/Or Wheezing 10/14/18 [History Last Taken Unknown] meloxicam 7.5 mg tablet 7.5 mg PO DAILY Arthritis 10/14/18 [History Last Taken Unknown] metformin 500 mg tablet 500 mg PO DAILY Blood sugar 10/14/18 [History Last Taken 12/10/22] ropinirole 0.5 mg tablet 1.5 mg PO QHS Restless leg 10/14/18 [History Last Taken 12/09/22] Oxygen ##1 10/27/18 [History Last Taken Unknown] budesonide 0.5 mg/2 mL suspension for nebulization 1 dose inhalation BID Breathing 12/22/18 [History Last Taken 12/10/22] ipratropium 0.5 mg-albuterol 3 mg (2.5 mg base)/3 mL nebulization soln 1 dose inhalation 4X/DAY Breathing 12/22/18 [History Last Taken Unknown] hydrochlorothiazide 12.5 mg capsule 25 mg PO DAILY BP 07/25/21 [History Last Taken 12/10/22] metoprolol tartrate 50 mg tablet 50 mg PO DAILY BP 07/25/21 [History Last Taken 12/10/22] oxybutynin chloride 5 mg tablet 5 mg PO DAILY Bladder 07/25/21 [History Last Taken 12/10/22] sertraline 50 mg tablet 50 mg PO DAILY Mood 07/25/21 [History Last Taken 12/10/22] acetaminophen 500 mg tablet 1,000 mg (2 x 500 mg) PO Q6H PRN PRN Pain Score 1-3 #0 tabs 08/07/21 [Rx Last Taken Unknown] gabapentin 100 mg capsule 100 mg PO TIDCM 30 days #90 caps 08/07/21 [Rx Last Taken 12/10/22] oxycodone 5 mg tablet 5 mg PO Q4H PRN PRN Pain Score 6-10 7 days #42 tabs 08/07/21 [Rx Last Taken Unknown] sennosides 8.6 mg-docusate sodium 50 mg tablet (Stool Softener-Stimulant Laxative) 1 tab PO BID 30 days #60 tabs 08/07/21 [Rx Last Taken Unknown] cephalexin 500 mg capsule 500 mg PO Q6 #40 CAPSULES 08/30/21 [Rx Last Taken Unknown] metoprolol succinate 50 mg tablet,extended release 24 hr mg PO 12/11/22 [History Last Taken Unknown] Allergy/AdvReac Type Severity Reaction Status Date / Time lisinopril AdvReac Intermediate cough Verified 12/10/22 23:21 pregabalin [From Lyrica] AdvReac Swelling Verified 12/10/22 23:21 Family History Mother Cancer lymphoma Father COPD (chronic obstructive pulmonary disease) Cancer bone Son Heart disease ischemic heart disease Surgical History History of appendectomy History of hysterectomy History of tonsillectomy Social History household members: none Smoking Status: Former smoker how long ago did patient quit smokin.5 years ago alcohol intake: current alcohol intake frequency: holidays/special occasions only substance use type: does not use caffeine: Yes Type: coffee Number of servings: 1 ROS ROS Narrative Pertinent positives and pertinent negatives as noted in HPI. All other systems were reviewed and are negative Vital Signs Vital Signs Vital Signs: 12/10/22 17:16 12/10/22 17:53 12/10/22 17:53 Temperature 97.2 F L Temperature Source Temporal Pulse Rate 74 Respiratory Rate 22 H Respiratory Effort Normal Respiratory Pattern Normal Blood Pressure 143/104 H Blood Pressure Mean 117 Pulse Ox 94 Oxygen Delivery Method Nasal Cannula Nasal Cannula Oxygen Flow Rate (L/min) 3 12/10/22 20:48 12/10/22 20:50 Temperature 98.9 F Temperature Source Oral Pulse Rate 81 81 Respiratory Rate 18 16 Respiratory Effort Respiratory Pattern Blood Pressure 164/88 H 164/88 H Blood Pressure Mean 113 113 Pulse Ox 97 94 Oxygen Delivery Method Nasal Cannula Oxygen Flow Rate (L/min) 3 Weight Weight: 94.5 kg Body Mass Index (BMI) 38.0 Physical Exam Narrative Physical exam: General: Well-nourished, well-developed. Head: Normocephalic, atraumatic, no tenderness Eyes: Vision is grossly intact. EOMI ENT, no trauma, moist mucous membranes, no rhinorrhea Neck: Nontender, No thyromegaly. CVS: Regular rate and rhythm. S1-S2 present. No murmur, gallop or rub. Respiratory : Tachypnea, increased work of breathing. Clear to auscultation bilaterally, chest wall nontender Abdomen: Soft, nontender, nondistended, normal bowel sounds, no masses : Deferred Back: Nontender, no CVA tenderness Extremities: Nontender full range of motion, no trauma Skin: Normal color, no trauma, abrasions Neuro: Alert, oriented, cranial nerves II through XII grossly intact except patient is hard of hearing. Psychiatry: Normal mood. Normal affect. Not depressed. Not anxious. Results Lab / Micro Data 12/10/22 18:30 12/10/22 18:30 Labs: Laboratory Results - last 24 hr 12/10/22 18:30: WBC 11.1 H, RBC 3.60 L, Hgb 11.0 L, Hct 35.9 L, MCV 99.7 H, MCH 30.6, MCHC 30.6 L, RDW Std Deviation 46.9 H, RDW Coeff of Stephenie 12.7, Plt Count 306, MPV 9.4, Immature Gran % (Auto) 4.200 H, Neut % (Auto) 74.0 H, Lymph % (Auto) 8.7 L, [place] % (Auto) 12.0 H, Eos % (Auto) 0.6, Baso % (Auto) 0.5, Absolute Neuts (auto) 8.2 H, Absolute Lymphs (auto) 0.97, Nucleated RBC % 0, Sodium 135 L, Potassium 3.5, Chloride 90 L, Carbon Dioxide 39.0 H, Anion Gap 6, BUN 30 H, Creatinine 1.55 H, Estim Creat Clear Calc 24.80, Est GFR (MDRD) Af Amer 42 L, Est GFR (MDRD) Non-Af 35 L, BUN/Creatinine Ratio 19.4, Glucose 107 H,Lactic Acid 1.2, Calcium 9.6, Troponin I High Sens 11, B-Natriuretic Peptide 113.3 H 12/10/22 19:12: Urine Color Yellow, Urine Clarity Clear, Urine pH 7.0, Ur Specific Fire[place] 1.010, Urine Protein 30 H, Urine Glucose (UA) Normal, Urine Ketones 15 H, Urine Occult Blood 50 H, Urine Nitrite Negative, Urine Bilirubin Negative, Urine Urobilinogen Normal, Ur Leukocyte Esterase 100 H, Urine RBC 0-5 SEEN, Urine WBC 0-5 SEEN, Ur Squamous Epith Cells 0-5 SEEN, Urine Bacteria 0 SEEN, Urine Mucus 0 SEEN ABG Data ABG results: ABG 12/10/22 18:34 Specimen Type SANTA VBG pH 7.45 H VBG pO2 37 VBG HCO3 39 H VBG Total CO2 40 H VBG O2 Sat (Calc) 71 H VBG Base Excess 15 H POC Mix VBG pCO2 Pt Tmp 55.3 H O2 Delivery Device Cannula Liter Flow 3.0 Radiology Impression Chest X-Ray 12/10/22 18:45 IMPRESSION: There are no acute findings. Electronically Signed: Willie Lopes MD at 19:19 EDT Reading Location ID and State: [facility] / [place] , Service support , Assessment & Plan Assessment/Plan (1) CATHI (acute kidney injury): (2) Diabetes mellitus: QUALIFIERS: Diabetes mellitus complication detail: with polyneuropathy Diabetes mellitus complication status: with neurologic complications Diabetes mellitus long term care administrator insulin use: without long term care administrator use Diabetes mellitus type: type 2 Qualified Code(s): E11.42 - Type 2 diabetes mellitus with diabetic polyneuropathy (3) Hypertension: QUALIFIERS: Hypertension type: primary hypertension Qualified Code(s): I10 - Essential (primary) hypertension (4) Chronic obstructive pulmonary disease: QUALIFIERS: COPD type: unspecified COPD Qualified Code(s): J44.9 - Chronic obstructive pulmonary disease, unspecified (5) Weakness: (6) Falls: QUALIFIERS: Encounter type: initial encounter Qualified Code(s): W19.XXXA - Unspecified fall, initial encounter (7) Anemia: QUALIFIERS: Anemia type: other cause Other causes of anemia: other cause, not classified Qualified Code(s): D64.89 - Other specified anemias PLAN: Plan Generalized weakness and falls PT and OT to work with patient. Case management consult. Check vitamin D Diabetes mellitus Blood glucose is stable. Hold metformin. Accu-Chek correction scale insulin ordered. Hypertension Blood pressure has been within goal. Home blood pressure medication continued. PRN Hydralazine ordered COPD Not in exacerbation. Continue home inhalers. Continue home oxygen supplementation Anemia likely from blood loss. Hemoglobin on presentation was 11.0. Check occult stools. Check iron panel. Check vitamin B12, check folic acid. Check reticulocyte panel. Trend CBC UTI Improving Started on ceftriaxone at the emergency department and continued emergency department Continue CATHI Creatinine on presentation was 1.55. Review of old records show that his creatinine 2021 was around 0.68. Gentle IV hydration. BUN over creatinine is 30. Trend BMP Avoid nephrotoxic's. DVT prophylaxis: SCDs Charges/Coding Visit Charges Inpatient E&M: 06819 Init Hosp L3 12/11/22 0531 <Electronically signed by Burke Patterson MD> Cosigner Signature (if applicable): CC: Dr. Burke Patterson MD; Dr. Jalyn Smith MD~ Signed [facility] Work Phone: [phone]) 258-805307-06-2023 Discharge summary Author Hector Fields [facility] December 10, 2022 10:58pm Note Date/Time December 10, 2022 6:17p m [facility] Medical Records Department [address] [place] [address] Emergency Department Summary 12/10/22 MR#: [id number] Acct: [id number] Name: KANDI CORREIA Rep #:[id number] : 1945 77 From: Hector Haas PCP: Dr. Jalyn Smith MD Status:ADM I NO Location: [place] [address] HPI History of Present Illness Chief Complaint: Weakness PFSH PFSH Medical History COPD (chronic obstructive pulmonary disease) Debility Degenerative disc disease, lumbar Depression Edema of both lower extremities Essential hypertension Fibromyalgia Generalized muscle weakness GERD (gastroesophageal reflux disease) Morbid obesity with BMI of 40.0-44.9, adult Muscle spasm MICHEL (obstructive sleep apnea) Osteoarthritis Right knee pain RLS (restless legs syndrome) Type 2 diabetes mellitus without complication Venous stasis ulcer of left lower leg with edema of left lower leg Home Medications albuterol sulfate 90 mcg/actuation aerosol inhaler 2 puff inhalation Q4H PRN Sob&/Or Wheezing 10/14/18 [History Last Taken Unknown] meloxicam 7.5 mg tablet 7.5 mg PO DAILY Arthritis 10/14/18 [History Last Taken Unknown] metformin 500 mg tablet 500 mg PO DAILY Blood sugar 10/14/18 [History Last Taken Unknown] ropinirole 0.5 mg tablet 1.5 mg PO QHS Restless leg 10/14/18 [History Last Taken Unknown] Oxygen ##1 10/27/18 [History Last Taken Unknown] budesonide 0.5 mg/2 mL suspension for nebulization 1 dose inhalation BID Breathing 12/22/18 [History Last Taken Unknown] ipratropium 0.5 mg-albuterol 3 mg (2.5 mg base)/3 mL nebulization soln 1 dose inhalation 4X/DAY Breathing 12/22/18 [History Last Taken Unknown] hydrochlorothiazide 12.5 mg capsule 25 mg PO DAILY BP 07/25/21 [History Last Taken Unknown] metoprolol tartrate 50 mg tablet 50 mg PO DAILY BP 07/25/21 [History Last Taken Unknown] oxybutynin chloride 5 mg tablet 5 mg PO DAILY Bladder 07/25/21 [History Last Taken Unknown] sertraline 50 mg tablet 50 mg PO DAILY Mood 07/25/21 [History Last Taken Unknown] acetaminophen 500 mg tablet 1,000 mg (2 x 500 mg) PO Q6H PRN PRN Pain Score 1-3 #0 tabs 08/07/21 [Rx Last Taken Unknown] gabapentin 100 mg capsule 100 mg PO TIDCM 30 days #90 caps 08/07/21 [Rx Last Taken Unknown] oxycodone 5 mg tablet 5 mg PO Q4H PRN PRN Pain Score 6-10 7 days #42 tabs 08/07/21 [Rx Last Taken Unknown] sennosides 8.6 mg-docusate sodium 50 mg tablet (Stool Softener-Stimulant Laxative) 1 tab PO BID 30 days #60 tabs 08/07/21 [Rx Last Taken Unknown] cephalexin 500 mg capsule 500 mg PO Q6 #40 CAPSULES 08/30/21 [Rx Last Taken Unknown] Allergy/AdvReac Type Severity Reaction Status Date / Time lisinopril AdvReac Intermediate cough Verified 07/25/22 09:29 pregabalin [From Lyrica] AdvReac Swelling Verified 07/25/22 09:29 Family History Mother Cancer lymphoma Father COPD (chronic obstructive pulmonary disease) Cancer bone Son Heart disease ischemic heart disease Surgical History History of appendectomy History of hysterectomy History of tonsillectomy Social History household members: none Smoking Status: Former smoker how long ago did patient quit smokin.5 years ago alcohol intake: current alcohol intake frequency: holidays/special occasions only substance use type: does not use caffeine: Yes Type: coffee Number of servings: 1 EXAM Physical Exam Const Vital Signs: 12/10/22 17:16 12/10/22 17:53 12/10/22 17:53 Temperature 97.2 F L Temperature Source Temporal Pulse Rate 74 Respiratory Rate 22 H Respiratory Effort Normal Respiratory Pattern Normal Blood Pressure 143/104 H Blood Pressure Mean 117 Pulse Ox 94 Oxygen Delivery Method Nasal Cannula Nasal Cannula Oxygen Flow Rate (L/min) 3 MDM MDM MDM Narrative Medical decision making narrative: HISTORY OF PRESENT ILLNESS: 77-year-old female here for diffuse weakness. The majority of history is provided by her daughters. They states she has not began arrival at home has had 2 falls no head trauma or obvious injury. They know she is diffusely weak. Denies focal weakness. States has been treated with ciprofloxacin for UTI and has 2 pills left. Patient denies any new shortness of breath, chest pain, abdominal pain, vomiting, fever, she does note a cough occasionally REVIEW OF SYSTEMS: Pertinent positives: Diffuse weakness, cough Pertinent negatives: Syncope, focal weakness PHYSICAL EXAM: Nursing triage notes reviewed, Vital signs reviewed Constitutional: please see mdm HENT: MMM Eyes: Pupils equal round and reactive to light, Extraocular muscles intact Neck: No stridor, no JVD, full neck ROM Lungs: Clear to auscultation, No wheezing or rales. No increased work of breathing, no conversational dyspnea, no accessory muscle use, no nasal flaring. No respiratory distress noted Heart: Regular rate and rhythm, No murmurs, No rubs and No gallops, 2+ distal pulses (radial, femoral, posterior tibial) in all extremities Abdomen: Soft, there is no tenderness, rigidity, rebound or guarding, no obviousperitoneal signs, no palpable pulsatile abdominal masses, no auscultated abdominal bruit : No CVAT Extremities: No edema Neuro: No focal neurological deficits, cranial nerves II through XII intact, 5/5strength in all extremities. Intact sensation to light touch in all extremities,2+ reflexes bilateral patella tendons. Skin: No rash or lesions noted MEDICAL DECISION MAKING: Chief Complaint: Diffuse weakness External records reviewed: Labs from 12/05/2022 shows no leukocytosis on CBC, no significant anemia on CBC, UA had 500 leuk esterase and white blood cells concerning for UTI, there is an acute kidney injury as well Factors affecting care: COPD, hypertension, type 2 diabetes, GERD Social determinants of health: none History obtained from others: n the patient's primary care physician, Dr. Smith was concern for GI bleed due to d increased weakness, dark urine, dark stools and abnormal labs Consults: Internal medicine ALL IMAGES (IF OBTAINED) HAVE BEEN PERSONALLY REVIEWED AND INTERPRETED BY MYSELF. EKG with normal sinus rhythm, normal axis, normal intervals, no obvious STEMI MDM Narrative: Patient was initially hemodynamically stable, tachypneic, nontoxic-appearing. Lungs with increased work of breathing and occasional expiratory wheezes. Thereis no other focal cardiopulmonary normality. No focal neurologic deficits I considered the following differential diagnosis: Dehydration, anemia, electro normality, UTI, pneumonia, heart failure, COPD exacerbation, CO2 retention I obtained a broad lab and imaging work-up to further elucidate etiology patientcomplaints. Labs with evidence of leukocytosis and urinary inflammation. I suspect patient is having ongoing UTI. There is no signs of arrhythmia, myocardial ischemia, significant anemia, electrolyte derangement, there is no obvious CO2 retention to suggest severe COPD exacerbation. I offered admission to the patient given diffuse weakness, multiple falls, systemic inflammation, evidence of urinary inflammation for IV antibiotics, urine culture and PT OT. Discussed with hospitalist. The patient and/or family, caregivers express understanding. The patient and/orfamily, caregivers agrees with the plan. Total critical care time today provided was at least 0 minutes. This excludes separately billable procedures. Critical care time (if documented) is secondary to the patient having high probability of clinically significant/life threatening deterioration in the patient's condition which required my urgent intervention. Shared decision making: I will have a discussion with the patient and or visitors regarding risk/benefits of further testing or admission. They will be made aware of of the risk/benefits inherent in this decision they will be given the opportunity to voice understanding. Lab Data Labs: Laboratory Results - last 24 hr 12/10/22 12/10/22 18:30 19:12 WBC 11.1 H RBC 3.60 L Hgb 11.0 L Hct 35.9 L MCV 99.7 H MCH 30.6 MCHC 30.6 L RDW Std Deviation 46.9 H RDW Coeff of Stephenie 12.7 Plt Count 306 MPV 9.4 Immature Gran % (Auto) 4.200 H Neut % (Auto) 74.0 H Lymph % (Auto) 8.7 L [place] % (Auto) 12.0 H Eos % (Auto) 0.6 Baso % (Auto) 0.5 Absolute Neuts (auto) 8.2 H Absolute Lymphs (auto) 0.97 Nucleated RBC % 0 Sodium 135 L Potassium 3.5 Chloride 90 L Carbon Dioxide 39.0 H Anion Gap 6 BUN 30 H Creatinine 1.55 H Estim Creat Clear Calc 24.80 Est GFR (MDRD) Af Amer 42 L Est GFR (MDRD) Non-Af 35 L BUN/Creatinine Ratio 19.4 Glucose 107 H Lactic Acid 1.2 Calcium 9.6 Troponin I High Sens 11 B-Natriuretic Peptide 113.3 H Urine Color Yellow Urine Clarity Clear Urine pH 7.0 Ur Specific Firestone 1.010 Urine Protein 30 H Urine Glucose (UA) Normal Urine Ketones 15 H Urine Occult Blood 50 H Urine Nitrite Negative Urine Bilirubin Negative Urine Urobilinogen Normal Ur Leukocyte Esterase 100 H Urine RBC 0-5 SEEN Urine WBC 0-5 SEEN Ur Squamous Epith Cells 0-5 SEEN Urine Bacteria 0 SEEN Urine Mucus 0 SEEN ABG Data ABG results: ABG 12/10/22 18:34 Specimen Type SANTA VBG pH 7.45 H VBG pO2 37 VBG HCO3 39 H VBG Total CO2 40 H VBG O2 Sat (Calc) 71 H VBG Base Excess 15 H POC Mix VBG pCO2 Pt Tmp 55.3 H O2 Delivery Device Cannula Liter Flow 3.0 Radiography Diagnostic Testing: Clinical Impression(s) from Imaging Studies Chest X-Ray 12/10/22 18:45 IMPRESSION: There are no acute findings. Electronically Signed: Willie Lopes MD at 19:19 EDT , I have personally reviewed the patient's chest x-ray. Chest x-ray is unremarkable for pulmonary edema, pneumothorax, pneumonia or focal cardiopulmonary abnormality. Discharge Plan Triage Chief Complaint: Weakness ED Provider: Hector Fields Dx/Rx/DC Orders Prescriptions: No Action (DME) Oxygen 3 liters [place] Qty: 1 Dose Instruction: As directed Patient Comments: says she uses 3-4L at home Rx Instructions: As directed meloxicam 7.5 mg tablet 7.5 mg PO DAILY metformin 500 mg tablet 500 mg PO DAILY albuterol sulfate 90 mcg/actuation HFA aerosol inhaler 2 puff INHALATION Q4H PRN (Reason: Sob &/Or Wheezing) ropinirole 0.5 mg tablet 1.5 mg PO QHS ipratropium-albuterol 0.5-3MG/3 solution for nebulization 1 dose inhalation 4X/DAY budesonide 0.5 MG/2ML suspension for nebulization 1 dose inhalation BID metoprolol tartrate 50 mg Tablet 50 mg PO DAILY oxybutynin chloride 5 mg Tablet 5 mg PO DAILY sertraline 50 mg Tablet 50 mg PO DAILY hydrochlorothiazide 12.5 mg capsule 25 mg PO DAILY acetaminophen 500 mg Tablet 1,000 mg PO Q6H PRN PRN (Reason: Pain Score 1-3) Qty: 0 0RF sennosides-docusate sodium [Stool Softener-Stimulant Laxat] 8.6-50 mg Tablet 1 tab PO BID 30 Days Qty: 60 0RF gabapentin 100 mg Capsule 100 mg PO TIDCM 30 Days Qty: 90 0RF oxycodone 5 mg Tablet 5 mg PO Q4H PRN PRN (Reason: Pain Score 6-10) 7 Days Qty: 42 0RF cephalexin [cephalexin] 500 MG capsule 500 mg PO Q6 Qty: 40 0RF Primary Care Provider: Jalyn Smith Referrals: Jalyn Smith MD [Primary Care Provider] - What to do if you have Problems For any increased pain, shortness of breath, bleeding, nausea or vomiting, chestpain, or any unexpected problems, contact your Primary Care Provider. Call [facility] ([phone]) or report to the closest Emergency Room. Call 911 if necessary. 12/10/222257 <Electronically signed by Hector Fields DO> Cosigner Signature (if applicable): CC: Dr. Jalyn Smith MD ~ Signed [facility] Work Phone: [phone] Discharge [facility] December 10, 2022 10:58pm Note Date/Time December 10, 2022 6:17p m [facility] Medical Records Department [address] [place] [address] Emergency Department Summary 12/10/22 MR#: [id number] Acct: [id number] Name: KANDI CORREIA Rep #:[id number] : 1945 77 From: Hector Haas PCP: Dr. Jalyn Smith MD Status:ADM I NO Location: [place] [address] HPI History of Present Illness Chief Complaint: Weakness PFSH PFS Medical History COPD (chronic obstructive pulmonary disease) Debility Degenerative disc disease, lumbar Depression Edema of both lower extremities Essential hypertension Fibromyalgia Generalized muscle weakness GERD (gastroesophageal reflux disease) Morbid obesity with BMI of 40.0-44.9, adult Muscle spasm MICHEL (obstructive sleep apnea) Osteoarthritis Right knee pain RLS (restless legs syndrome) Type 2 diabetes mellitus without complication Venous stasis ulcer of left lower leg with edema of left lower leg Home Medications albuterol sulfate 90 mcg/actuation aerosol inhaler 2 puff inhalation Q4H PRN Sob&/Or Wheezing 10/14/18 [History Last Taken Unknown] meloxicam 7.5 mg tablet 7.5 mg PO DAILY Arthritis 10/14/18 [History Last Taken Unknown] metformin 500 mg tablet 500 mg PO DAILY Blood sugar 10/14/18 [History Last Taken Unknown] ropinirole 0.5 mg tablet 1.5 mg PO QHS Restless leg 10/14/18 [History Last Taken Unknown] Oxygen ##1 10/27/18 [History Last Taken Unknown] budesonide 0.5 mg/2 mL suspension for nebulization 1 dose inhalation BID Breathing 12/22/18 [History Last Taken Unknown] ipratropium 0.5 mg-albuterol 3 mg (2.5 mg base)/3 mL nebulization soln 1 dose inhalation 4X/DAY Breathing 12/22/18 [History Last Taken Unknown] hydrochlorothiazide 12.5 mg capsule 25 mg PO DAILY BP 07/25/21 [History Last Taken Unknown] metoprolol tartrate 50 mg tablet 50 mg PO DAILY BP 07/25/21 [History Last Taken Unknown] oxybutynin chloride 5 mg tablet 5 mg PO DAILY Bladder 07/25/21 [History Last Taken Unknown] sertraline 50 mg tablet 50 mg PO DAILY Mood 07/25/21 [History Last Taken Unknown] acetaminophen 500 mg tablet 1,000 mg (2 x 500 mg) PO Q6H PRN PRN Pain Score 1-3 #0 tabs 08/07/21 [Rx Last Taken Unknown] gabapentin 100 mg capsule 100 mg PO TIDCM 30 days #90 caps 08/07/21 [Rx Last Taken Unknown] oxycodone 5 mg tablet 5 mg PO Q4H PRN PRN Pain Score 6-10 7 days #42 tabs 08/07/21 [Rx Last Taken Unknown] sennosides 8.6 mg-docusate sodium 50 mg tablet (Stool Softener-Stimulant Laxative) 1 tab PO BID 30 days #60 tabs 08/07/21 [Rx Last Taken Unknown] cephalexin 500 mg capsule 500 mg PO Q6 #40 CAPSULES 08/30/21 [Rx Last Taken Unknown] Allergy/AdvReac Type Severity Reaction Status Date / Time lisinopril AdvReac Intermediate cough Verified 07/25/22 09:29 pregabalin [From Lyrica] AdvReac Swelling Verified 07/25/22 09:29 Family History Mother Cancer lymphoma Father COPD (chronic obstructive pulmonary disease) Cancer bone Son Heart disease ischemic heart disease Surgical History History of appendectomy History of hysterectomy History of tonsillectomy Social History household members: none Smoking Status: Former smoker how long ago did patient quit smokin.5 years ago alcohol intake: current alcohol intake frequency: holidays/special occasions only substance use type: does not use caffeine: Yes Type: coffee Number of servings: 1 EXAM Physical Exam Const Vital Signs: 12/10/22 17:16 12/10/22 17:53 12/10/22 17:53 Temperature 97.2 F L Temperature Source Temporal Pulse Rate 74 Respiratory Rate 22 H Respiratory Effort Normal Respiratory Pattern Normal Blood Pressure 143/104 H Blood Pressure Mean 117 Pulse Ox 94 Oxygen Delivery Method Nasal Cannula Nasal Cannula Oxygen Flow Rate (L/min) 3 MDM MDM MDM Narrative Medical decision making narrative: HISTORY OF PRESENT ILLNESS: 77-year-old female here for diffuse weakness. The majority of history is provided by her daughters. They states she has not began arrival at home has had 2 falls no head trauma or obvious injury. They know she is diffusely weak. Denies focal weakness. States has been treated with ciprofloxacin for UTI and has 2 pills left. Patient denies any new shortness of breath, chest pain, abdominal pain, vomiting, fever, she does note a cough occasionally REVIEW OF SYSTEMS: Pertinent positives: Diffuse weakness, cough Pertinent negatives: Syncope, focal weakness PHYSICAL EXAM: Nursing triage notes reviewed, Vital signs reviewed Constitutional: please see mdm HENT: MMM Eyes: Pupils equal round and reactive to light, Extraocular muscles intact Neck: No stridor, no JVD, full neck ROM Lungs: Clear to auscultation, No wheezing or rales. No increased work of breathing, no conversational dyspnea, no accessory muscle use, no nasal flaring. No respiratory distress noted Heart: Regular rate and rhythm, No murmurs, No rubs and No gallops, 2+ distal pulses (radial, femoral, posterior tibial) in all extremities Abdomen: Soft, there is no tenderness, rigidity, rebound or guarding, no obviousperitoneal signs, no palpable pulsatile abdominal masses, no auscultated abdominal bruit : No CVAT Extremities: No edema Neuro: No focal neurological deficits, cranial nerves II through XII intact, 5/5strength in all extremities. Intact sensation to light touch in all extremities,2+ reflexes bilateral patella tendons. Skin: No rash or lesions noted MEDICAL DECISION MAKING: Chief Complaint: Diffuse weakness External records reviewed: Labs from 12/05/2022 shows no leukocytosis on CBC, no significant anemia on CBC, UA had 500 leuk esterase and white blood cells concerning for UTI, there is an acute kidney injury as well Factors affecting care: COPD, hypertension, type 2 diabetes, GERD Social determinants of health: none History obtained from others: n the patient's primary care physician, Dr. Smith was concern for GI bleed due to d increased weakness, dark urine, dark stools and abnormal labs Consults: Internal medicine ALL IMAGES (IF OBTAINED) HAVE BEEN PERSONALLY REVIEWED AND INTERPRETED BY MYSELF. EKG with normal sinus rhythm, normal axis, normal intervals, no obvious STEMI MDM Narrative: Patient was initially hemodynamically stable, tachypneic, nontoxic-appearing. Lungs with increased work of breathing and occasional expiratory wheezes. Thereis no other focal cardiopulmonary normality. No focal neurologic deficits I considered the following differential diagnosis: Dehydration, anemia, electro normality, UTI, pneumonia, heart failure, COPD exacerbation, CO2 retention I obtained a broad lab and imaging work-up to further elucidate etiology patientcomplaints. Labs with evidence of leukocytosis and urinary inflammation. I suspect patient is having ongoing UTI. There is no signs of arrhythmia, myocardial ischemia, significant anemia, electrolyte derangement, there is no obvious CO2 retention to suggest severe COPD exacerbation. I offered admission to the patient given diffuse weakness, multiple falls, systemic inflammation, evidence of urinary inflammation for IV antibiotics, urine culture and PT OT. Discussed with hospitalist. The patient and/or family, caregivers express understanding. The patient and/orfamily, caregivers agrees with the plan. Total critical care time today provided was at least 0 minutes. This excludes separately billable procedures. Critical care time (if documented) is secondary to the patient having high probability of clinically significant/life threatening deterioration in the patient's condition which required my urgent intervention. Shared decision making: I will have a discussion with the patient and or visitors regarding risk/benefits of further testing or admission. They will be made aware of of the risk/benefits inherent in this decision they will be given the opportunity to voice understanding. Lab Data Labs: Laboratory Results - last 24 hr 12/10/22 12/10/22 18:30 19:12 WBC 11.1 H RBC 3.60 L Hgb 11.0 L Hct 35.9 L MCV 99.7 H MCH 30.6 MCHC 30.6 L RDW Std Deviation 46.9 H RDW Coeff of Stephenie 12.7 Plt Count 306 MPV 9.4 Immature Gran % (Auto) 4.200 H Neut % (Auto) 74.0 H Lymph % (Auto) 8.7 L [place] % (Auto) 12.0 H Eos % (Auto) 0.6 Baso % (Auto) 0.5 Absolute Neuts (auto) 8.2 H Absolute Lymphs (auto) 0.97 Nucleated RBC % 0 Sodium 135 L Potassium 3.5 Chloride 90 L Carbon Dioxide 39.0 H Anion Gap 6 BUN 30 H Creatinine 1.55 H Estim Creat Clear Calc 24.80 Est GFR (MDRD) Af Amer 42 L Est GFR (MDRD) Non-Af 35 L BUN/Creatinine Ratio 19.4 Glucose 107 H Lactic Acid 1.2 Calcium 9.6 Troponin I High Sens 11 B-Natriuretic Peptide 113.3 H Urine Color Yellow Urine Clarity Clear Urine pH 7.0 Ur Specific Firestone 1.010 Urine Protein 30 H Urine Glucose (UA) Normal Urine Ketones 15 H Urine Occult Blood 50 H Urine Nitrite Negative Urine Bilirubin Negative Urine Urobilinogen Normal Ur Leukocyte Esterase 100 H Urine RBC 0-5 SEEN Urine WBC 0-5 SEEN Ur Squamous Epith Cells 0-5 SEEN Urine Bacteria 0 SEEN Urine Mucus 0 SEEN ABG Data ABG results: ABG 12/10/22 18:34 Specimen Type SANTA VBG pH 7.45 H VBG pO2 37 VBG HCO3 39 H VBG Total CO2 40 H VBG O2 Sat (Calc) 71 H VBG Base Excess 15 H POC Mix VBG pCO2 Pt Tmp 55.3 H O2 Delivery Device Cannula Liter Flow 3.0 Radiography Diagnostic Testing: Clinical Impression(s) from Imaging Studies Chest X-Ray 12/10/22 18:45 IMPRESSION: There are no acute findings. Electronically Signed: Willie Lopes MD at 19:19 EDT Reading Location ID and State: [facility] / [place] , Service support , I have personally reviewed the patient's chest x-ray. Chest x-ray is unremarkable for pulmonary edema, pneumothorax, pneumonia or focal cardiopulmonary abnormality. Discharge Plan Triage Chief Complaint: Weakness ED Provider: Hector Fields Dx/Rx/DC Orders Prescriptions: No Action (DME) Oxygen 3 liters NC Qty: 1 Dose Instruction: As directed Patient Comments: says she uses 3-4L at home Rx Instructions: As directed meloxicam 7.5 mg tablet 7.5 mg PO DAILY metformin 500 mg tablet 500 mg PO DAILY albuterol sulfate 90 mcg/actuation HFA aerosol inhaler 2 puff INHALATION Q4H PRN (Reason: Sob &/Or Wheezing) ropinirole 0.5 mg tablet 1.5 mg PO QHS ipratropium-albuterol 0.5-3MG/3 solution for nebulization 1 dose inhalation 4X/DAY budesonide 0.5 MG/2ML suspension for nebulization 1 dose inhalation BID metoprolol tartrate 50 mg Tablet 50 mg PO DAILY oxybutynin chloride 5 mg Tablet 5 mg PO DAILY sertraline 50 mg Tablet 50 mg PO DAILY hydrochlorothiazide 12.5 mg capsule 25 mg PO DAILY acetaminophen 500 mg Tablet 1,000 mg PO Q6H PRN PRN (Reason: Pain Score 1-3) Qty: 0 0RF sennosides-docusate sodium [Stool Softener-Stimulant Laxat] 8.6-50 mg Tablet 1 tab PO BID 30 Days Qty: 60 0RF gabapentin 100 mg Capsule 100 mg PO TIDCM 30 Days Qty: 90 0RF oxycodone 5 mg Tablet 5 mg PO Q4H PRN PRN (Reason: Pain Score 6-10) 7 Days Qty: 42 0RF cephalexin [cephalexin] 500 MG capsule 500 mg PO Q6 Qty: 40 0RF Primary Care Provider: Jalyn Smith Referrals: Jalyn Smith MD [Primary Care Provider] - What to do if you have Problems For any increased pain, shortness of breath, bleeding, nausea or vomiting, chestpain, or any unexpected problems, contact your Primary Care Provider. Call [facility] ([phone]) or report to the closest Emergency Room. Call 911 if necessary. 12/10/22 5043 <Electronically signed by Hector Fields DO> Cosigner Signature (if applicable): CC: Dr. Jalyn Smith MD ~ Signed [facility] Work Phone: [phone] [phone] History of Present illness Narrative* Jalyn Smith MD - 12/10/2022 4:17 PM EDT Patient presents with: Weakness: Would like referral for home health and therapy HPI: Patient presents today with daughter Karson for office visit to discuss weakness in legs. Has fallen twice over the weekend. On Thursday at 10pm she had fallen and daughter found her Thursday at 6am on the ground of her bedroom. Per patient she went to sit on her bed and she slipped off her mattress. Did not hit her head. No injury. Knees are so bad she is unable to get herself up when she falls. Squad called for lift-assist. She slipped off chair on Thursday and fell to the ground. Other daughter arrived shortly after that and helped lift her up. Complaints of B/L knee pain. Had an episode of burning severe pain in B/L legs. Has seen ortho for her knees. Has done cortisone and gel injections. Not really a knee replacement candidate. Daughter Karson would like home health and therapy started. Her bp was low at wound care care. Is now better. Denies new chest pain or shortness of breath. No worsening edema. Her wounds are improving. Reviewed labs. They did not report things initially but they just on questioning reported black stools over the last several weeks. Also reports epigastric pain See previous ov note: Patient's daughter Karson calling to update PCP regarding patient. Patient was seen at [facility] this morning and BP was noted to be low at 90/56. Pt voiced to provider there that she has been having blood in her urine over the last couple of days as well. Dtr reports pt has not been herself over the last couple of days, more dazed, and dtr did not know pt was having blood in her urine until today. Daughter would like Dr. Smith to know that the provider there at the wound center, Dr. Hall, is ordering blood work and a UA for patient today. Component Latest Ref Rng & Units 10/01/2022 12/05/2022 WBC 3.70 - 11.00 k/uL 10.38 RBC 3.90 - 5.20 m/uL 3.42 (L) Hemoglobin 11.5 - 15.5 g/dL 10.5 (L) Hematocrit 36.0 - 46.0 % 35.0 (L) MCV 80.0 - 100.0 fL 102.3 (H) MCH 26.0 - 34.0 pg 30.7 MCHC 30.5 - 36.0 g/dL 30.0 (L) RDW-CV 11.5 - 15.0 % 13.2 Platelet Count 150 - 400 k/uL 257 MPV 9.0 - 12.7 fL 10.1 Neut% % 79.4 Abs Neut (ANC) 1.45 - 7.50 k/uL 8.25 (H) Lymph% % 4.5 Abs Lymph 1.00 - 4.00 k/uL 0.47 (L) [place]% % 14.5 Abs [place] <0.87 k/uL 1.50 (H) Eosin% % 0.6 Abs Eosin <0.46 k/uL 0.06 Baso% % 0.4 Abs Baso <0.11 k/uL 0.04 Immature Gran % % 0.6 IMMATURE GRANS (ABS) <0.10 k/uL 0.06 NRBC /100 WBC 0.0 Absolute nRBC <0.01 k/uL <0.01 DTYPE Auto Color Yellow Yellow Clarity Clear Cloudy (A) Glucose, Urine Trace, Negative Negative Bilirubin, Urine Negative Negative Ketones, Urine Trace, Negative Negative Specific Fire[place], Ur 1.005 - 1.030 1.020 Hemoglobin/Blood,Ur Negative, Trace 1+ (A) pH, Urine 5.0 - 8.0 6.5 Protein, Urine Trace, Negative 1+ (A) Urobilinogen Negative Negative Nitrites Negative Negative Leukest Negative, 25 Vikas/uL 500 Vikas/uL (A) WBC, Urine 0-5 /HPF >25 /HPF (A) RBC, Urine 0-3 /HPF 3-5 /HPF (A) Bacteria None Seen /HPF Moderate (A) Epithelial Cells /HPF Moderate Hyaline Cast 0 /LPF >10 /LPF (A) Protein, Total 6.3 - 8.0 g/dL 6.5 Albumin 3.9 - 4.9 g/dL 3.7 (L) Calcium 8.5 - 10.2 mg/dL 9.4 Bilirubin, Total 0.2 - 1.3 mg/dL 0.4 Alkaline Phosphatase 34 - 123 U/L 66 AST 13 - 35 U/L 23 ALT 7 - 38 U/L 14 Glucose 74 - 99 mg/dL 148 (H) BUN 7 - 21 mg/dL 51 (H) Creatinine 0.58 - 0.96 mg/dL 1.62 (H) Sodium 136 - 144 mmol/L 136 Potassium 3.7 - 5.1 mmol/L 3.9 Chloride 97 - 105 mmol/L 92 (L) CO2 22 - 30 mmol/L 34 (H) Anion Gap 9 - 18 mmol/L 10 eGFR >=60 mL/min/1.73m 33 (L) Hemoglobin A1C 4.3 - 5.6 % 6.3 (H) Estimated Average Glucose mg/dL 134 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 albuterol HFA (VENTOLIN HFA) 90 mcg/actuation inhaler Inhale 2 Puffs as instructed every 4 hours asneeded for wheezing/shortness of breath. meloxicam (MOBIC) 15 mg tablet Take 1 tablet by mouth once daily. With food. hydroCHLOROthiazide (HYDRODIURIL, ESIDRIX) 12.5 mg capsule Take 2 capsules by mouth once daily. oxybutynin XL (DITROPAN XL) 5 mg 24 hr tablet Take 1 tablet by mouth once daily. baclofen (LIORESAL) 10 mg tablet Take 1 tablet by mouth three times daily. arformoterol (BROVANA) 15 mcg/2 mL nebulizer solution Inhale 2 mL as instructed every 12 hours. Maymix with Budesonide neb twice a day. budesonide (PULMICORT) 0.5 mg/2 mL nebulizer solution Use 2 mL via nebulizer twice daily. metFORMIN (GLUCOPHAGE) 500 mg tablet Take 1 tablet by mouth daily with breakfast. metoprolol succinate ER (TOPROL XL) 50 mg 24 hr tablet Take 3 tablets by mouth once daily. rOPINIRole (REQUIP) 0.5 mg tablet Take 3 tablets by mouth daily at bedtime. sertraline (ZOLOFT) 50 mg tablet Take 1 tab once a day. fluticasone (FLONASE) 50 mcg/actuation nasal spray USE 1 SPRAY IN EACH NOSTRIL ONCE DAILY. gabapentin (NEURONTIN) 100 mg capsule Take 1 capsule by mouth three times daily for 180 days. Lancets lancets Test blood sugar(s) 2 times daily. Dx: Type 2 DM - Controlled E11.9 Insulin: No blood sugar diagnostic (BLOOD GLUCOSE TEST) test strip Test blood sugar(s) 2 times daily. Dx: Type 2 DM - Controlled E11.9 Insulin: No ipratropium-albuterol (DUONEB) 0.5 mg-3 mg(2.5 mg base)/3 mL nebu Inhale 3 mL as instructed every 4hours as needed (Shortness of breath and wheezing). COMPOUNDED PRESCRIPTION Oxygen via nasal canula 2 L N/C DX: copd and hypoxia COMPOUNDED PRESCRIPTION Lightweight portable oxygen DX: copd, 2 L nc continuously No current facility-administered medications for this visit. ALLERGIES: ALLERGIES Allergen Reactions Lisinopril Other: See Comments cough Lyrica [Pregabalin] Swelling PAST MEDICAL HISTORY Diagnosis Date COPD (chronic obstructive pulmonary disease) (HCC) Degenerative disc disease Depression Descending thoracic aortic dissection (HCC) 12/22/[address] Perry (vascular) Fibromyalgia HTN (hypertension) OA (osteoarthritis) MICHEL (obstructive sleep apnea) not on CPAP Restless leg syndrome PAST SURGICAL HISTORY Procedure Laterality Date HYSTERECTOMY HX prolapse non ca, total TONSILLECTOMY HX FAMILY HISTORY Problem Relation Age of Onset other (lymphoma) Mother COPD Father other (bone cancer) Father Ischemic Heart Disease Son 33 Social History Tobacco Use Smoking status: Former Packs/day: 0.50 Years: 45.00 Pack years: 22.50 Types: Cigarettes Start date: 08/30/1966 Quit date: 01/29/2012 Years since quittin.8 Smokeless tobacco: Never Tobacco comments: Father smoked in childhood home. Spouse smoked briefly after marriage. Substance Use Topics Alcohol use: No Drug use: No Reviewed current medications, allergies, past medical history, surgical history, family history andsocial history today. REVIEW OF SYSTEMS All other reviewed and negative other than HPI. HEALTH MAINTENANCE: Reviewed health maintenance issues today and recommended the following in detail. HEPATITIS C SCREENING Never done VITALS: BP 116/66 Pulse 68 Ht 162.6 cm (5' 4) Wt 93.9 kg (207 lb) SpO2 96% BMI 35.53 kg/m Last 4 Encounter Wt Readings: Date: Wt: 10/01/2022 93.9 kg (207 lb) 07/17/2022 93 kg (205 lb) 06/20/2022 91.6 kg (202 lb) 03/20/2022 94.8 kg (209 lb) PHYSICAL EXAMINATION: General appearance: Well appearing, alert, in no acute distress, well-hydrated, well nourished. Short of breath which is chronic. Skin: Skin color, texture, turgor normal, no suspicious rashes or lesions Lungs: Lungs clear to auscultation. No wheezing, rhonchi, rales Heart: RRR without murmur, gallop, or rubs. No ectopy Abdomen: Normal abdominal exam, Abdomen soft, non-tender. Bowel sounds normal. No masses, organomegaly Extremities: No deformities, edema, skin discoloration, clubbing or cyanosis. Good capillary refill. Musculoskeletal: No joint swelling, deformity, or tenderness ASSESSMENT/PLAN: 1. Essential hypertension - ICD9: 401.9, ICD10: I10 (primary diagnosis) Better. Was low the other day at wound care. She also tonight just report she has been having black stools and blood work just obtained showed anemia which is new. Rule out gi bleed. Stop all nsaids. 2. Thoracic aortic aneurysm without rupture, unspecified part (HCC) - ICD9: 441.2, ICD10: I71.20 3. MICHEL (obstructive sleep apnea) - ICD9: 327.23, ICD10: G47.33 4. Type 2 diabetes mellitus without complication, without long-term current use of insulin (HCC) - ICD9: 250.00, ICD10: E11.9 5. Osteoarthritis of both knees, unspecified osteoarthritis type - ICD9: 715.96, ICD10: M17.0 - [facility] 6. Anemia, unspecified type - ICD9: 285.9, ICD10: D64.9 7. Renal insufficiency - ICD9: 593.9, ICD10: N28.9 - BASIC METABOLIC PNL 8. Microscopic hematuria - ICD9: 599.72, ICD10: R31.29 9. Melena - ICD9: 578.1, ICD10: K92.1 Jalyn Smith MD documented in this encounterBl[facility]30-[facility] Miscellaneous Notes* Telephone Encounter - Kalpana Sharif LPN - 12/05/2022 4:36 PM EDT Discussed with daughter. She is aware that if patient develops fever any behavior changes go to ER.Also told her to be sure drinking lots of fluids. * Telephone Encounter - Anthony Rodríguez PA-C - 12/05/2022 4:29 PM EDT Culture pending. The following approved medication requests have been transmitted electronically. Requested Prescriptions Signed Prescriptions Disp Refills nitrofurantoin monohydrate and macrocrystal (MACROBID) 100 mg capsule 14 capsule 0 Sig: Take 1 capsule by mouth twice daily with meals for 7 days. Authorizing Provider: Anthony RODRÍGUEZ PA-C documented in this encounterBlanchard [facility]06-30-2023 Progress note Author Nisha Magallon [facility] December 05, 2022 1:14pm Note Date/Time December 05, 2022 1:14 pm [facility] [address] [place] [address] Progress Note - Wound Care 12/05/22 1312 MR#: [id number] Acct: [id number] Name: KANDI CORREIA Rep #:[id number] : 1945 77 From: Nisha Magallon DO PCP: Dr. Jalyn Smith MD Status:REG R CR Location: History of Present Illness Date of Service: 12/05/22 Chief Complaint: Venous leg ulcer left lower extremity History of Wound: This is a 76-year-old white female who presents to the wound healing center today with complaint of nonhealing ulceration of her right and left lower extremities. She has a past medical history significant for chronic hypoxia on supplemental O2, COPD, type 2 diabetes mellitus, CHF, and osteoarthritis of the bilateral knees and GERD. The patient states that her wounds initially occurred after scratching the back of her leg on something almost a month ago. She saw her PCP last week and was started on Cephalexin QID x 10 days. She was 2 days left of treatment. She has not had any improvement in her pain or ulcers since starting the antibiotic. Shehas been applying triple antibiotic ointment covering with gauze for the last few days but had been using hydrogel and nonadherent dressings prior to that. She states that she has not been utilizing any compression due to pain but has been elevating her legs more frequently and using a wedge pillow. She denies any systemic or localized signs of infection at this time. Denies any prior cultures being taken. 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 Subjective Subjective Kandi is tolerating treatment with hydrogel and adaptic well with very slow progress but still improving. Left posterior calf improved in size. She remains healed today on her right calf. Denies fever, chills, increased drainage, increased pain or increased erythema. Objective Data Objective Data Vital Signs: Vital Signs Temp Pulse Resp BP O2 Del Method O2 Flow Rate 97.6 F L 86 18 100/56 L Nasal Cannula 2 12/05/22 11:03 12/05/22 11:03 11/21/22 09:11 12/05/22 11:03 11/07/22 09:25 11/07/22 09:25 Oxygen Flow Rate (L/min) 2 Oxygen Delivery Method Nasal Cannula Weight: 91.777 kg Body Mass Index (BMI) 34.7 Physical Exam Const alert, oriented x3 and no apparent distress General Appearance: cooperative and comfortable HEENT normocephalic and head/scalp atraumatic Resp normal respiratory effort Effort and Inspection: able to speak in complete sentences Cardio regular rate and regular rhythm Skin Wounds: wounds noted Wound Narrative: as in clinical panel Psych mental status grossly normal, thought process normal, cooperative and affect normal Debridement Note Debridement Note Wound debrided: Left posterior LE Laterality: Left Type of Debridement: Excisional debridement Anesthesia Used: 4% Lidocaine Solution, 5% Lidocaine Gel and Cetacaine Depth: Down to and including healthy tissue and in the subcutaneous layer Percentage of wound debrided: 100 Instrument Used: 5mm curette Tissue Removed: Yellow slough, devitalized tissue Severity: Fat Layer Exposed Amount of bleeding with debridement: Mild Bleeding Controlled with: Compression and gauze Patient tolerated procedure: Patient tolerated procedure well Post-Debridement Measurements and Additional Note: Post-Debridement Measurements/Treatment - Nurse 1 - General Ulcer Assessment Start: 11/07/22 09:24 Freq: Status: Active Protocol: CHING Activity Type Activity Date Activity User E-sign Co-sign Detail Recorded Client Recorded Date Recorded By Document 11/07/22 09:25 AK [id number] 11/07/22 09:27 AK Document 11/21/22 09:11 RB [id number] 11/21/22 09:13 RB Document 12/05/22 11:03 AK [id number] 12/05/22 11:05 AK 11/07/22 11/21/22 12/05/22 09:25 09:11 11:03 - Today's Visit Information Type of service Follow-up Visit Follow-up Visit Follow-up Visit (Physician/REFINERY OPERATOR HELPER (Physician/REFINERY OPERATOR HELPER (Physician/REFINERY OPERATOR HELPER ) ) ) Arrival Mode Ambulatory Ambulatory, Ambulatory, Walker Wheelchair Transfer Assistance None Patient Identification Verified (Name & No Yes Yes ) Patient Requires Transmission-Based No No No Precautions Height and Weight Body Mass Index (BMI) 34.7 34.7 34.7 BMI Classification Obese Obese Obese Vital Signs Temperature (97.8 F-99.1 F) 96.7 F L 96.5 F L 97.6 F L Temperature Source Temporal Temporal Temporal Pulse Rate (60-100) 68 66 86 Pulse Location Monitor Monitor Monitor Respiratory Rate (12-18) 18 Respiratory rate source Observation Oxygen Delivery Method Nasal Cannula O2 L/MIN (L/min) 2 Blood Pressure (90/60-120/80) 157/70 H 154/83 H 100/56 L Blood Pressure Mean (mm Hg) 99 106 70 Source Monitor Monitor Monitor Position Semi-Fowlers Blood Pressure Location Left Arm History Since Last Visit- (Skip if this is Patient's initial visit) Have you changed medications since your No No No last visit? Any new allergies or adverse reactions No No No Had a fall/change in ADL's that may No No No increase risk of falls Signs or symptoms of abuse and/or No No No neglect since last visit Have you been in the hospital since your No No No last visit? Has dressing in place as prescribed Yes Yes Yes Has compression in place as prescribed N/A No Yes Has offloadiing in place as prescribed N/A No N/A Experienced any changes in pain level or No No No management Left Footwear Regular Shoe Regular Shoe Right Footwear Regular Shoe Regular Shoe Pain Scale: 0-10 Numeric Is Patient Pain Free? Yes Yes Yes WC - Nurse 1 - General Ulcer Measurement Start: 11/07/22 09:24 Freq: Status: Active Protocol: Activity Type Activity Date Activity User E-sign Co-sign Detail Recorded Client Recorded Date Recorded By Document 11/07/22 09:25 AK [id number] 11/07/22 09:27 AK Document 11/21/22 09:11 RB [id number] 11/21/22 09:13 RB Document 12/05/22 11:03 AK [id number] 12/05/22 11:05 AK 11/07/22 11/21/22 12/05/22 09:25 09:11 11:03 Wound Center Nurse 1 #2 R POST LE -Combined with other wound No -Current Size (cm) - Length 1.2 1.1 -Current Size (cm) - Width 2.5 2 -Current Size (cm) - Depth 0.1 0.1 -Total Square Cm 3.00 2.2 -Photo Taken Yes -Tunneling No No -Undermining/Tunneling No No -Circular Undermining No No -Change in Wound Grade/Stage No -Exudate Amt Medium Medium -Exudate Type Serosanguineous Serosanguineous -Wound Margin Distinct, Distinct, Outline Outline Attached Attached -Granulation Amt Large (67-100%) Medium (34-66%) -Granulation Quality [place] -Slough/Fibrin Yes Yes -Necrosis Amt Small (1-33%) Medium (34-66%) -Necrotic Tissue Type Adherent Slough -Structure Exposed N/A N/A -Texture (Leticia-wound Skin Appearance) Assessed, Assessed Scarring -Moisture (Leticia-wound Skin Appearance) No Abnormality, Assessed Assessed -Color (Leticia-wound Skin Appearance) No Abnormality, Assessed Assessed -Temperature (Leticia-wound Skin No Abnormality No Abnormality Appearance) (Pt Warm) (Pt Warm) -Tenderness on Palpation (Leticia-wound No No Skin Appearance) -Ulcer Cleansing Rinsed/ Wound Cleanser Irrigated with Saline -Foul Odor after Cleansing No No -Anesthetic Used 5% Lidocaine 5% Lidocaine Gel Gel Point of measurement (cm from the medial 39 instep) Point of Measurement (cm from the medial 23 instep) WC - Nurse 2 - General Ulcer CM Notes Start: 11/07/22 09:24 Freq: Status: Active Protocol: Activity Type Activity Date Activity User E-sign Co-sign Detail Recorded Client Recorded Date Recorded By Document 11/07/22 10:03 MW [id number] 11/07/22 10:07 MW Document 11/21/22 09:34 MW [id number] 11/21/22 09:40 MW Document 12/05/22 09:37 JF [id number] 12/05/22 09:42 JF 11/07/22 11/21/22 12/05/22 10:03 09:34 09:37 Wound Center Nurse 2 #2 R POST LE -Time 10:04 09:36 09:38 -Correct Patient Yes Yes Yes -Correct Side, Site, Position Yes Yes Yes -Correct Procedure Yes Yes Yes -Procedure Performed Yes Yes Yes -Type of Procedure Debridement Debridement Debridement -Clinical Debridement Subcutaneous Subcutaneous Subcutaneous -Tissue Removed Subcutaneous Subcutaneous Subcutaneous -Post Debridement (cm) - Length 1.2 1.1 0.8 -Post Debridement (cm) - Width 2.4 2.1 1.5 -Post Debridement (cm) - Depth 0.1 0.1 0.1 -Total Square (Post) (cm) 2.88 2.31 1.20 -Area of Debridement (cm) - Length 1.2 1.1 0.8 -Area of Debridement (cm) - Width 2.4 2.1 1.5 -Total Square (Area) (cm) 2.88 2.31 1.20 -Tunneling No No No -Undermining/Tunneling No No No -Circular Undermining No No No -Wound/Ulcer Outcome Not Healed Not Healed Not Healed -Ulcer Cleansing Rinsed/ Rinsed/ Rinsed/ Irrigated with Irrigated with Irrigated with Saline Saline Saline -Foul Odor after Cleansing No No No -Bioengineered Tissue No No No -Bleeding Controlled with Pressure Pressure Pressure -Treatment Response Procedure Procedure Procedure Tolerated Well Tolerated Well Tolerated Well -Offloading No No No -Debridement - Subq, 1st 20sq cm Yes Yes Yes Pain Scale: 0-10 Numeric Is Patient Pain Free? Yes Yes Yes - Nurse 3 - General Ulcer D/C NN Start: 11/07/22 09:24 Freq: Status: Active Protocol: Activity Type Activity Date Activity User E-sign Co-sign Detail Recorded Client Recorded Date Recorded By Document 11/21/22 09:41 MW [id number] 11/21/22 09:42 MW Document 12/05/22 10:30 JF [id number] 12/05/22 10:31 JF 11/21/22 12/05/22 09:41 10:30 Wound Care Center Nurse 3 #2 R POST LE -Ulcer Cleansing Rinsed/ Rinsed/ Irrigated with Irrigated with Saline Saline -Foul Odor after Cleansing No No -Negative Pressure Wound Therapy N/A -Primary Dressing Applied Mepilex Border Mepilex Border -Other Dressing hydrogel hydrogel to ulcer -Mepilex Border 1 1 Right -Lotion applied to leg before No compression wrap -Stockings Yes Yes: Circaid Treatment Response Procedure Tolerated Well Pain Scale: 0-10 Numeric Is Patient Pain Free? Yes Yes Teaching: Wound Center Dressing Your Wound -Person Taught Patient -Teaching Method Discussion, Demonstration -Response to teaching Verbalize understanding WC - Visit Discharge Discharge Condition Stable Stable Ambulatory Status Ambulatory, Ambulatory, Wheelchair Walker Transportation Private Auto Private Auto Accompanied by daughter daughter Medication Reconcilliation completed & No Yes provided to patient/care provider Clinical Summary of Care Provided Yes Yes Assessment/Plan Assessment/Plan (1) Venous stasis ulcer of left lower leg with edema of left lower leg: CODE(S): I83.029 - Varicose veins of left lower extremity with ulcer of unspecified site; I83.892 - Varicose veins of left lower extremity with other complications; L97.929 - Non-pressure chronic ulcer of unspecified part of left lower leg with unspecified severity; R60.9 - Edema, unspecified (2) Diabetes mellitus: CODE(S): E11.9 - Type 2 diabetes mellitus without complications QUALIFIERS: Diabetes mellitus type: type 2 Diabetes mellitus fdc insulin use: without fpc use Diabetes mellitus complication status: with neurologic complications Diabetes mellitus complication detail: with polyneuropathy Qualified Code(s): E11.42 - Type 2 diabetes mellitus with diabetic polyneuropathy (3) Chronic obstructive pulmonary disease: CODE(S): J44.9 - Chronic obstructive pulmonary disease, unspecified QUALIFIERS: COPD type: unspecified COPD Qualified Code(s): J44.9 - Chronic obstructive pulmonary disease, unspecified (4) Hypertension: CODE(S): I10 - Essential (primary) hypertension QUALIFIERS: Hypertension type: primary hypertension Qualified Code(s): I10 - Essential (primary) hypertension (5) 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: CODE(S): I83.019 - Varicose veins of right lower extremity with ulcer of unspecified site; L97.919 - Non-pressure chronic ulcer of unspecified part of right lower leg with unspecified severity (6) Nonhealing ulcer of left lower extremity with fat layer exposed: CODE(S): L97.922 - Non-pressure chronic ulcer of unspecified part of left lower leg with fat layer exposed (7) Nonhealing ulcer of right lower extremity with fat layer exposed: CODE(S): L97.912 - Non-pressure chronic ulcer of unspecified part of rightlower leg with fat layer exposed (8) Supplemental oxygen dependent: CODE(S): Z99.81 - Dependence on supplemental oxygen PLAN: Plan Debridement performed today in clinic as annotated above. At home wound-care instructions: Will have her continue to apply hydrogel and cover with silicone foam bordered dressing every other day. Off-loading: The patient was instructed to avoid pressure and friction on the affected areas. Reposition every 2 hours at minimum. Avoid prolonged standing and/or dangling of legs. When seated, feet should be elevated at chest level. Frequent ambulation is encouraged. Diet: Patient encouraged to increase protein intake while taking caution to avoid high carbohydrate and/or sugar intake. Labs/cultures/imaging: Vascular testing ordered to evaluate for arterial and venous disease showed incompetence of accessory saphenous veins b/l and normal arterial studies except decreased at level of great toe. Follow-up: Return in 2 weeks for wound care follow up. Return sooner or report to the emergency room should symptoms worsen, or new symptoms arise. Note: [employer] speech recognition auto motor mechanic software was used to create portions of this document. Sound-alike and misspelled words, as well as other auto motor mechanic errors may be contained in the documentation. 12/05/22 1314 <Electronically signed by Nisha Magallon DO> Cosigner Signature (if applicable): CC: ~ Signed [facility] Work Phone: [phone]) 429-166906-30-2023 Miscellaneous Notes* Telephone Encounter - Tracy Peter RN - 12/05/2022 10:33 AM EDT VM left for patient of message below. Tracy Peter RN * Telephone Encounter - Jalyn Smith MD - 12/05/2022 10:05 AM EDT Ok, if feels worse, ER * Telephone Encounter - Tracy Peter RN - 12/05/2022 9:51 AM EDT Patient's daughter Karson calling to update PCP regarding patient. Patient was seen at [facility] this morning and BP was noted to be low at 90/56. Pt voiced to provider there that she has been having blood in her urine over the last couple of days as well. Dtr reports pt has not been herself over the last couple of days, more dazed, and dtr did not know pt was having blood in her urine until today. Daughter would like Dr. Smith to know that the provider there at the wound center, Dr. Hall, is ordering blood work and a UA for patient today. Tracy Peter RN documented in [facility] Progress note Author Nisha Magallon [facility] November 21, 2022 1:12pm Note Date/Time November 21, 2022 10:4 4am [facility] [address] [place] [address] Progress Note - Wound Care 11/21/22 1041 MR#: [id number] Acct: [id number] Name: KANDI CORREIA Rep #:[id number] : 1945 77 From: Nisha Magallon DO PCP: Dr. Jalyn Smith MD Status:REG R CR Location: History of Present Illness Date of Service: 11/21/22 Chief Complaint: Venous leg ulcer left lower extremity History of Wound: This is a 76-year-old white female who presents to the wound healing center today with complaint of nonhealing ulceration of her right and left lower extremities. She has a past medical history significant for chronic hypoxia on supplemental O2, COPD, type 2 diabetes mellitus, CHF, and osteoarthritis of the bilateral knees and GERD. The patient states that her wounds initially occurred after scratching the back of her leg on something almost a month ago. She saw her PCP last week and was started on Cephalexin QID x 10 days. She was 2 days left of treatment. She has not had any improvement in her pain or ulcers since starting the antibiotic. Shehas been applying triple antibiotic ointment covering with gauze for the last few days but had been using hydrogel and nonadherent dressings prior to that. She states that she has not been utilizing any compression due to pain but has been elevating her legs more frequently and using a wedge pillow. She denies any systemic or localized signs of infection at this time. Denies any prior cultures being taken. 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 Subjective Subjective Kandi is tolerating treatment with hydrogel and adaptic well with very slow progress but still improving. Left posterior calf improved in size. She remains healed today on her right calf. Denies fever, chills, increased drainage, increased pain or increased erythema. Objective Data Objective Data Vital Signs: Vital Signs Temp Pulse Resp BP O2 Del Method O2 Flow Rate 96.5 F L 66 18 154/83 H Nasal Cannula 2 11/21/22 09:11 11/21/22 09:11 11/21/22 09:11 11/21/22 09:11 11/07/22 09:25 11/07/22 09:25 Oxygen Flow Rate (L/min) 2 Oxygen Delivery Method Nasal Cannula Weight: 91.777 kg Body Mass Index (BMI) 34.7 Physical Exam Const alert, oriented x3 and no apparent distress General Appearance: cooperative and comfortable HEENT normocephalic and head/scalp atraumatic Resp normal respiratory effort Effort and Inspection: able to speak in complete sentences Cardio regular rate and regular rhythm Skin Wounds: wounds noted Wound Narrative: as in clinical panel Psych mental status grossly normal, thought process normal, cooperative and affect normal Debridement Note Debridement Note Wound debrided: Left posterior LE Laterality: Left Type of Debridement: Excisional debridement Anesthesia Used: 4% Lidocaine Solution, 5% Lidocaine Gel and Cetacaine Depth: Down to and including healthy tissue and in the subcutaneous layer Percentage of wound debrided: 100 Instrument Used: 5mm curette Tissue Removed: Yellow slough, devitalized tissue Severity: Fat Layer Exposed Amount of bleeding with debridement: Mild Bleeding Controlled with: Compression and gauze Patient tolerated procedure: Patient tolerated procedure well Post-Debridement Measurements and Additional Note: Post-Debridement Measurements/Treatment - Nurse 1 - General Ulcer Assessment Start: 11/07/22 09:24 Freq: Status: Active Protocol: CHING Activity Type Activity Date Activity User E-sign Co-sign Detail Recorded Client Recorded Date Recorded By Document 11/07/22 09:25 PA [id number] 11/07/22 09:27 PA Document 11/21/22 09:11 RB [id number] 11/21/22 09:13 RB 11/07/22 11/21/22 09:25 09:11 - Today's Visit Information Type of service Follow-up Visit Follow-up Visit (Physician/REFINERY OPERATOR HELPER (Physician/REFINERY OPERATOR HELPER ) ) Arrival Mode Ambulatory Ambulatory, Walker Transfer Assistance None Patient Identification Verified (Name & No Yes ) Patient Requires Transmission-Based No No Precautions Height and Weight Body Mass Index (BMI) 34.7 34.7 BMI Classification Obese Obese Vital Signs Temperature (97.8 F-99.1 F) 96.7 F L 96.5 F L Temperature Source Temporal Temporal Pulse Rate (60-100) 68 66 Pulse Location Monitor Monitor Respiratory Rate (12-18) 18 Respiratory rate source Observation Oxygen Delivery Method Nasal Cannula O2 L/MIN (L/min) 2 Blood Pressure (90/60-120/80) 157/70 H 154/83 H Blood Pressure Mean (mm Hg) 99 106 Source Monitor Monitor Position Semi-Fowlers Blood Pressure Location Left Arm History Since Last Visit- (Skip if this is Patient's initial visit) Have you changed medications since your No No last visit? Any new allergies or adverse reactions No No Had a fall/change in ADL's that may No No increase risk of falls Signs or symptoms of abuse and/or No No neglect since last visit Have you been in the hospital since your No No last visit? Has dressing in place as prescribed Yes Yes Has compression in place as prescribed N/A No Has offloadiing in place as prescribed N/A No Experienced any changes in pain level or No No management Left Footwear Regular Shoe Right Footwear Regular Shoe Pain Scale: 0-10 Numeric Is Patient Pain Free? Yes Yes WC - Nurse 1 - General Ulcer Measurement Start: 11/07/22 09:24 Freq: Status: Active Protocol: Activity Type Activity Date Activity User E-sign Co-sign Detail Recorded Client Recorded Date Recorded By Document 11/07/22 09:25 PA [id number] 11/07/22 09:27 AK Document 11/21/22 09:11 RB [id number] 11/21/22 09:13 RB 11/07/22 11/21/22 09:25 09:11 Wound Center Nurse 1 #2 R POST LE -Current Size (cm) - Length 1.2 1.1 -Current Size (cm) - Width 2.5 2 -Current Size (cm) - Depth 0.1 0.1 -Total Square Cm 3.00 2.2 -Photo Taken Yes -Tunneling No No -Undermining/Tunneling No No -Circular Undermining No No -Change in Wound Grade/Stage No -Exudate Amt Medium Medium -Exudate Type Serosanguineous Serosanguineous -Wound Margin Distinct, Distinct, Outline Outline Attached Attached -Granulation Amt Large (67-100%) Medium (34-66%) -Granulation Quality [place] -Slough/Fibrin Yes Yes -Necrosis Amt Small (1-33%) Medium (34-66%) -Necrotic Tissue Type Adherent Slough -Structure Exposed N/A N/A -Texture (Leticia-wound Skin Appearance) Assessed, Assessed Scarring -Moisture (Leticia-wound Skin Appearance) No Abnormality, Assessed Assessed -Color (Leticia-wound Skin Appearance) No Abnormality, Assessed Assessed -Temperature (Leticia-wound Skin No Abnormality No Abnormality Appearance) (Pt Warm) (Pt Warm) -Tenderness on Palpation (Leticia-wound No No Skin Appearance) -Ulcer Cleansing Rinsed/ Wound Cleanser Irrigated with Saline -Foul Odor after Cleansing No No -Anesthetic Used 5% Lidocaine 5% Lidocaine Gel Gel Point of measurement (cm from the medial 39 instep) Point of Measurement (cm from the medial 23 instep) WC - Nurse 2 - General Ulcer CM Notes Start: 11/07/22 09:24 Freq: Status: Active Protocol: Activity Type Activity Date Activity User E-sign Co-sign Detail Recorded Client Recorded Date Recorded By Document 11/07/22 10:03 MW [id number] 11/07/22 10:07 MW Document 11/21/22 09:34 MW [id number] 11/21/22 09:40 MW 11/07/22 11/21/22 10:03 09:34 Wound Center Nurse 2 #2 R POST LE -Time 10:04 09:36 -Correct Patient Yes Yes -Correct Side, Site, Position Yes Yes -Correct Procedure Yes Yes -Procedure Performed Yes Yes -Type of Procedure Debridement Debridement -Clinical Debridement Subcutaneous Subcutaneous -Tissue Removed Subcutaneous Subcutaneous -Post Debridement (cm) - Length 1.2 1.1 -Post Debridement (cm) - Width 2.4 2.1 -Post Debridement (cm) - Depth 0.1 0.1 -Total Square (Post) (cm) 2.88 2.31 -Area of Debridement (cm) - Length 1.2 1.1 -Area of Debridement (cm) - Width 2.4 2.1 -Total Square (Area) (cm) 2.88 2.31 -Tunneling No No -Undermining/Tunneling No No -Circular Undermining No No -Wound/Ulcer Outcome Not Healed Not Healed -Ulcer Cleansing Rinsed/ Rinsed/ Irrigated with Irrigated with Saline Saline -Foul Odor after Cleansing No No -Bioengineered Tissue No No -Bleeding Controlled with Pressure Pressure -Treatment Response Procedure Procedure Tolerated Well Tolerated Well -Offloading No No -Debridement - Subq, 1st 20sq cm Yes Yes Pain Scale: 0-10 Numeric Is Patient Pain Free? Yes Yes WC - Nurse 3 - General Ulcer D/C NN Start: 11/07/22 09:24 Freq: Status: Active Protocol: Activity Type Activity Date Activity User E-sign Co-sign Detail Recorded Client Recorded Date Recorded By Document 11/21/22 09:41 MW [id number] 11/21/22 09:42 MW 11/21/22 09:41 Wound Care Center Nurse 3 #2 R POST LE -Ulcer Cleansing Rinsed/ Irrigated with Saline -Foul Odor after Cleansing No -Negative Pressure Wound Therapy N/A -Primary Dressing Applied Mepilex Border -Other Dressing hydrogel -Mepilex Border 1 Right -Lotion applied to leg before No compression wrap -Stockings Yes Treatment Response Procedure Tolerated Well Pain Scale: 0-10 Numeric Is Patient Pain Free? Yes Teaching: Wound Center Dressing Your Wound -Person Taught Patient -Teaching Method Discussion, Demonstration -Response to teaching Verbalize understanding WC - Visit Discharge Discharge Condition Stable Ambulatory Status Ambulatory, Wheelchair Transportation Private Auto Accompanied by daughter Medication Reconcilliation completed & No provided to patient/care provider Clinical Summary of Care Provided Yes Assessment/Plan Assessment/Plan (1) Venous stasis ulcer of left lower leg with edema of left lower leg: CODE(S): I83.029 - Varicose veins of left lower extremity with ulcer of unspecified site; I83.892 - Varicose veins of left lower extremity with other complications; L97.929 - Non-pressure chronic ulcer of unspecified part of left lower leg with unspecified severity; R60.9 - Edema, unspecified (2) Diabetes mellitus: CODE(S): E11.9 - Type 2 diabetes mellitus without complications QUALIFIERS: Diabetes mellitus complication detail: with polyneuropathy Diabetes mellitus complication status: with neurologic complications Diabetes mellitus long term care administrator insulin use: without long term care administrator use Diabetes mellitus type: type 2 Qualified Code(s): E11.42 - Type 2 diabetes mellitus with diabetic polyneuropathy (3) Chronic obstructive pulmonary disease: CODE(S): J44.9 - Chronic obstructive pulmonary disease, unspecified QUALIFIERS: COPD type: unspecified COPD Qualified Code(s): J44.9 - Chronic obstructive pulmonary disease, unspecified (4) Hypertension: CODE(S): I10 - Essential (primary) hypertension QUALIFIERS: Hypertension type: primary hypertension Qualified Code(s): I10 - Essential (primary) hypertension (5) 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: CODE(S): I83.019 - Varicose veins of right lower extremity with ulcer of unspecified site; L97.919 - Non-pressure chronic ulcer of unspecified part of right lower leg with unspecified severity (6) Nonhealing ulcer of left lower extremity with fat layer exposed: CODE(S): L97.922 - Non-pressure chronic ulcer of unspecified part of left lower leg with fat layer exposed (7) Nonhealing ulcer of right lower extremity with fat layer exposed: CODE(S): L97.912 - Non-pressure chronic ulcer of unspecified part of rightlower leg with fat layer exposed (8) Supplemental oxygen dependent: CODE(S): Z99.81 - Dependence on supplemental oxygen PLAN: Plan Debridement performed today in clinic as annotated above. At home wound-care instructions: Will have her continue to apply hydrogel and cover with silicone foam bordered dressing every other day. Off-loading: The patient was instructed to avoid pressure and friction on the affected areas. Reposition every 2 hours at minimum. Avoid prolonged standing and/or dangling of legs. When seated, feet should be elevated at chest level. Frequent ambulation is encouraged. Diet: Patient encouraged to increase protein intake while taking caution to avoid high carbohydrate and/or sugar intake. Labs/cultures/imaging: Vascular testing ordered to evaluate for arterial and venous disease showed incompetence of accessory saphenous veins b/l and normal arterial studies except decreased at level of great toe. Follow-up: Return in 2 weeks for wound care follow up. Return sooner or report to the emergency room should symptoms worsen, or new symptoms arise. Note: [employer] speech recognition auto motor mechanic software was used to create portions of this document. Sound-alike and misspelled words, as well as other auto motor mechanic errors may be contained in the documentation. 11/21/22 1312 <Electronically signed by Nisha Magallon DO> Cosigner Signature (if applicable): CC: ~ Signed [facility] Work Phone: 1(300) [phone] History of Present illness Narrative* Selene Anaya RN - 11/13/2022 3:52 PM EDT CDM Telephonic Outreach Provider Action/FYI Contacted for: Routine Telephonic Outreach Contact made with patient: No, left message. Selene Anaya RN November 13, 2022 3:54 PM Care Coordination next call-1 lvm x 2 Last CDM outreach contact: 10/14 - Baseline: need ADL, FALL, GOAL due: 10/16/23 . Chronic disease goal - 10/15/22 -copd SDOH transportation and food insecurity completed: no * Selene Anaya RN - 11/13/2022 11:12 AM EDT CDM Telephonic Outreach Provider Action/FYI Contacted for: Routine Telephonic Outreach Contact made with patient: No, left message. Selene Anaya RN November 13, 2022 11:16 AM Care Coordination next call-1 lvm x 1 Last CDM outreach contact: 10/14 - Baseline: need ADL, FALL, GOAL due: 10/16/23 . Chronic disease goal - 10/15/22 -copd SDOH transportation and food insecurity completed: no documented in this [facility]Bl[facility] Progress note Author Nisha Magallon [facility] November 07, 2022 1:43pm Note Date/Time November 07, 2022 1:43p [facility] [address] [place] [address] Progress Note - Wound Care 11/07/22 1337 MR#: [id number] Acct: [id number] Name: KANDI CORREIA Rep #:[id number] : 1945 77 From: Nisha Magallon DO PCP: Dr. Jalyn Smith MD Status:REG R CR Location: History of Present Illness Date of Service: 11/07/22 Chief Complaint: Venous leg ulcer left lower extremity History of Wound: This is a 76-year-old white female who presents to the wound healing center today with complaint of nonhealing ulceration of her right and left lower extremities. She has a past medical history significant for chronic hypoxia on supplemental O2, COPD, type 2 diabetes mellitus, CHF, and osteoarthritis of the bilateral knees and GERD. The patient states that her wounds initially occurred after scratching the back of her leg on something almost a month ago. She saw her PCP last week and was started on Cephalexin QID x 10 days. She was 2 days left of treatment. She has not had any improvement in her pain or ulcers since starting the antibiotic. Shehas been applying triple antibiotic ointment covering with gauze for the last few days but had been using hydrogel and nonadherent dressings prior to that. She states that she has not been utilizing any compression due to pain but has been elevating her legs more frequently and using a wedge pillow. She denies any systemic or localized signs of infection at this time. Denies any prior cultures being taken. 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 Subjective Subjective Kandi tolerated Epifix treatment well. Left posterior calf improved in size. Sheremains healed today on her right calf. Denies fever, chills, increased drainage, increased pain or increased erythema. Objective Data Objective Data Vital Signs: Vital Signs Temp Pulse Resp BP O2 Del Method O2 Flow Rate 96.7 F L 68 18 157/70 H Nasal Cannula 2 11/07/22 09:25 11/07/22 09:25 11/06/22 00:33 11/07/22 09:25 11/07/22 09:25 11/07/22 09:25 Oxygen Flow Rate (L/min) 2 Oxygen Delivery Method Nasal Cannula Weight: 91.777 kg Body Mass Index (BMI) 34.7 Physical Exam Const alert, oriented x3 and no apparent distress General Appearance: cooperative and comfortable HEENT normocephalic and head/scalp atraumatic Resp normal respiratory effort Effort and Inspection: able to speak in complete sentences Cardio regular rate and regular rhythm Skin Wounds: wounds noted Wound Narrative: as in clinical panel Psych mental status grossly normal, thought process normal, cooperative and affect normal Debridement Note Debridement Note Wound debrided: Left posterior LE Laterality: Left Type of Debridement: Excisional debridement Anesthesia Used: 4% Lidocaine Solution, 5% Lidocaine Gel and Cetacaine Depth: Down to and including healthy tissue and in the subcutaneous layer Percentage of wound debrided: 100 Instrument Used: 5mm curette Tissue Removed: Yellow slough, devitalized tissue Severity: Fat Layer Exposed Amount of bleeding with debridement: Mild Bleeding Controlled with: Compression and gauze Patient tolerated procedure: Patient tolerated procedure well Post-Debridement Measurements and Additional Note: Post-Debridement Measurements/Treatment - Nurse 1 - General Ulcer Assessment Start: 11/07/22 09:24 Freq: Status: Active Protocol: CHING Activity Type Activity Date Activity User E-sign Co-sign Detail Recorded Client Recorded Date Recorded By Document 11/07/22 09:25 FAIZAN [id number] 11/07/22 09:27 FAIZAN 11/07/22 09:25 WC - Today's Visit Information Type of service Follow-up Visit (Physician/REFINERY OPERATOR HELPER ) Arrival Mode Ambulatory Patient Identification Verified (Name & No ) Patient Requires Transmission-Based No Precautions Height and Weight Body Mass Index (BMI) 34.7 BMI Classification Obese Vital Signs Temperature (97.8 F-99.1 F) 96.7 F L Temperature Source Temporal Pulse Rate (60-100) 68 Pulse Location Monitor Oxygen Delivery Method Nasal Cannula O2 L/MIN (L/min) 2 Blood Pressure (90/60-120/80) 157/70 H Blood Pressure Mean (mm Hg) 99 Source Monitor History Since Last Visit- (Skip if this is Patient's initial visit) Have you changed medications since your No last visit? Any new allergies or adverse reactions No Had a fall/change in ADL's that may No increase risk of falls Signs or symptoms of abuse and/or No neglect since last visit Have you been in the hospital since your No last visit? Has dressing in place as prescribed Yes Has compression in place as prescribed N/A Has offloadiing in place as prescribed N/A Experienced any changes in pain level or No management Left Footwear Regular Shoe Right Footwear Regular Shoe Pain Scale: 0-10 Numeric Is Patient Pain Free? Yes - Nurse 1 - General Ulcer Measurement Start: 11/07/22 09:24 Freq: Status: Active Protocol: Activity Type Activity Date Activity User E-sign Co-sign Detail Recorded Client Recorded Date Recorded By Document 11/07/22 09:25 FAIZAN [id number] 11/07/22 09:27 FAIZAN 11/07/22 09:25 Wound Center Nurse 1 #2 R POST LE -Current Size (cm) - Length 1.2 -Current Size (cm) - Width 2.5 -Current Size (cm) - Depth 0.1 -Total Square Cm 3.00 -Photo Taken Yes -Tunneling No -Undermining/Tunneling No -Circular Undermining No -Change in Wound Grade/Stage No -Exudate Amt Medium -Exudate Type Serosanguineous -Wound Margin Distinct, Outline Attached -Granulation Amt Large (67-100%) -Granulation Quality [place] -Slough/Fibrin Yes -Necrosis Amt Small (1-33%) -Structure Exposed N/A -Texture (Leticia-wound Skin Appearance) Assessed, Scarring -Moisture (Leticia-wound Skin Appearance) No Abnormality, Assessed -Color (Leticia-wound Skin Appearance) No Abnormality, Assessed -Temperature (Leticia-wound Skin No Abnormality Appearance) (Pt Warm) -Tenderness on Palpation (Leticia-wound No Skin Appearance) -Ulcer Cleansing Rinsed/ Irrigated with Saline -Foul Odor after Cleansing No -Anesthetic Used 5% Lidocaine Gel Point of measurement (cm from the medial 39 instep) Point of Measurement (cm from the medial 23 instep) WC - Nurse 2 - General Ulcer CM Notes Start: 11/07/22 09:24 Freq: Status: Active Protocol: Activity Type Activity Date Activity User E-sign Co-sign Detail Recorded Client Recorded Date Recorded By Document 11/07/22 10:03 MW [id number] 11/07/22 10:07 MW 11/07/22 10:03 Wound Center Nurse 2 #2 R POST LE -Time 10:04 -Correct Patient Yes -Correct Side, Site, Position Yes -Correct Procedure Yes -Procedure Performed Yes -Type of Procedure Debridement -Clinical Debridement Subcutaneous -Tissue Removed Subcutaneous -Post Debridement (cm) - Length 1.2 -Post Debridement (cm) - Width 2.4 -Post Debridement (cm) - Depth 0.1 -Total Square (Post) (cm) 2.88 -Area of Debridement (cm) - Length 1.2 -Area of Debridement (cm) - Width 2.4 -Total Square (Area) (cm) 2.88 -Tunneling No -Undermining/Tunneling No -Circular Undermining No -Wound/Ulcer Outcome Not Healed -Ulcer Cleansing Rinsed/ Irrigated with Saline -Foul Odor after Cleansing No -Bioengineered Tissue No -Bleeding Controlled with Pressure -Treatment Response Procedure Tolerated Well -Offloading No -Debridement - Subq, 1st 20sq cm Yes Pain Scale: 0-10 Numeric Is Patient Pain Free? Yes Assessment/Plan Assessment/Plan (1) Venous stasis ulcer of left lower leg with edema of left lower leg: CODE(S): I83.029 - Varicose veins of left lower extremity with ulcer of unspecified site; I83.892 - Varicose veins of left lower extremity with other complications; L97.929 - Non-pressure chronic ulcer of unspecified part of left lower leg with unspecified severity; R60.9 - Edema, unspecified (2) Diabetes mellitus: CODE(S): E11.9 - Type 2 diabetes mellitus without complications QUALIFIERS: Diabetes mellitus type: type 2 Diabetes mellitus fdc insulin use: without long term care administrator use Diabetes mellitus complication status: with neurologic complications Diabetes mellitus complication detail: with polyneuropathy Qualified Code(s): E11.42 - Type 2 diabetes mellitus with diabetic polyneuropathy (3) Chronic obstructive pulmonary disease: CODE(S): J44.9 - Chronic obstructive pulmonary disease, unspecified QUALIFIERS: COPD type: unspecified COPD Qualified Code(s): J44.9 - Chronic obstructive pulmonary disease, unspecified (4) Hypertension: CODE(S): I10 - Essential (primary) hypertension QUALIFIERS: Hypertension type: primary hypertension Qualified Code(s): I10 - Essential (primary) hypertension (5) 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: CODE(S): I83.019 - Varicose veins of right lower extremity with ulcer of unspecified site; L97.919 - Non-pressure chronic ulcer of unspecified part of right lower leg with unspecified severity (6) Nonhealing ulcer of left lower extremity with fat layer exposed: CODE(S): L97.922 - Non-pressure chronic ulcer of unspecified part of left lower leg with fat layer exposed (7) Nonhealing ulcer of right lower extremity with fat layer exposed: CODE(S): L97.912 - Non-pressure chronic ulcer of unspecified part of rightlower leg with fat layer exposed (8) Supplemental oxygen dependent: CODE(S): Z99.81 - Dependence on supplemental oxygen PLAN: Plan Debridement performed today in clinic as annotated above. At home wound-care instructions: Will have her apply hydrogel and cover with silicone foam bordered dressing every other day. Off-loading: The patient was instructed to avoid pressure and friction on the affected areas. Reposition every 2 hours at minimum. Avoid prolonged standing and/or dangling of legs. When seated, feet should be elevated at chest level. Frequent ambulation is encouraged. Diet: Patient encouraged to increase protein intake while taking caution to avoid high carbohydrate and/or sugar intake. Labs/cultures/imaging: Vascular testing ordered to evaluate for arterial and venous disease showed incompetence of accessory saphenous veins b/l and normal arterial studies except decreased at level of great toe. Follow-up: Return in 2 weeks for wound care follow up. Return sooner or report to the emergency room should symptoms worsen, or new symptoms arise. Note: [employer] speech recognition auto motor mechanic software was used to create portions of this document. Sound-alike and misspelled words, as well as other auto motor mechanic errors may be contained in the documentation. 11/07/22 1343 <Electronically signed by Nisha Magallon DO> Cosigner Signature (if applicable): CC: ~ Signed [facility] Work Phone: [phone]) 429-905305-19-[address] Magallon [facility] October 24, 2022 3:11pm Note Date/Time October 24, 2022 3:11p [facility] [address] [place] [id number] Progress Note - Wound Care 10/24/22 1509 MR#: [id number] Acct: [id number] Name: KANDI CROREIA Rep #:[id number] : 1945 77 From: Nisha Magallon DO PCP: Dr. Jalyn Smith MD Status:REG R CR Location: History of Present Illness Date of Service: 10/24/22 Chief Complaint: Venous leg ulcer left lower extremity and right lower extremity History of Wound: This is a 76-year-old white female who presents to the wound healing center today with complaint of nonhealing ulceration of her right and left lower extremities. She has a past medical history significant for chronic hypoxia on supplemental O2, COPD, type 2 diabetes mellitus, CHF, and osteoarthritis of the bilateral knees and GERD. The patient states that her wounds initially occurred after scratching the back of her leg on something almost a month ago. She saw her PCP last week and was started on Cephalexin QID x 10 days. She was 2 days left of treatment. She has not had any improvement in her pain or ulcers since starting the antibiotic. Shehas been applying triple antibiotic ointment covering with gauze for the last few days but had been using hydrogel and nonadherent dressings prior to that. She states that she has not been utilizing any compression due to pain but has been elevating her legs more frequently and using a wedge pillow. She denies any systemic or localized signs of infection at this time. Denies any prior cultures being taken. 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 Subjective Subjective Kandi tolerated Epifix treatment well. Left posterior calf improved in size. Sheremains healed today on her right calf. Denies fever, chills, increased drainage, increased pain or increased erythema. Objective Data Objective Data Vital Signs: Vital Signs Temp Pulse Resp BP O2 Del Method O2 Flow Rate 97 F L 60 18 166/71 H Nasal Cannula 3 10/24/22 09:16 10/24/22 09:16 10/24/22 09:16 10/24/22 09:16 10/24/22 09:16 10/17/22 09:14 Oxygen Flow Rate (L/min) 3 Oxygen Delivery Method Nasal Cannula Weight: 91.777 kg Body Mass Index (BMI) 34.7 Physical Exam Const alert, oriented x3 and no apparent distress General Appearance: cooperative and comfortable HEENT normocephalic and head/scalp atraumatic Resp normal respiratory effort Effort and Inspection: able to speak in complete sentences Cardio regular rate and regular rhythm Skin Wounds: wounds noted Wound Narrative: as in clinical panel Psych mental status grossly normal, thought process normal, cooperative and affect normal Debridement Note Debridement Note Wound debrided: Left posterior LE Laterality: Left Type of Debridement: Excisional debridement Anesthesia Used: 4% Lidocaine Solution, 5% Lidocaine Gel and Cetacaine Depth: Down to and including healthy tissue and in the subcutaneous layer Percentage of wound debrided: 100 Instrument Used: 5mm curette Tissue Removed: Yellow slough, devitalized tissue Severity: Fat Layer Exposed Amount of bleeding with debridement: Mild Bleeding Controlled with: Compression and gauze Patient tolerated procedure: Patient tolerated procedure well Post-Debridement Measurements and Additional Note: Post-Debridement Measurements/Treatment WC - Nurse 1 - General Ulcer Assessment Start: 05/05/23 08:56 Freq: Status: Active Protocol: WC.LOWEXT Activity Type Activity Date Activity User E-sign Co-sign Detail Recorded Client Recorded Date Recorded By Document 10/10/22 08:56 JF [id number] 10/10/22 09:10 JF Document 10/17/22 09:14 RB [id number] 10/17/22 09:22 RB Document 10/24/22 09:16 BM [id number] 10/24/22 09:24 BM 10/10/22 10/17/22 10/24/22 08:56 09:14 09:16 WC - Today's Visit Information Type of service Follow-up Visit Follow-up Visit Follow-up Visit (Physician/REFINERY OPERATOR HELPER (Physician/REFINERY OPERATOR HELPER (Physician/REFINERY OPERATOR HELPER ) ) ) Arrival Mode Ambulatory, Ambulatory, Ambulatory, Walker Walker Walker Transfer Assistance None None Accompanied by Daughter antonio Patient Identification Verified (Name & Yes Yes Yes ) Patient Requires Transmission-Based No No No Precautions Height and Weight Body Mass Index (BMI) 34.7 34.7 34.7 BMI Classification Obese Obese Obese Vital Signs Temperature (97.8 F-99.1 F) 97.3 F L 96.7 F L 97 F L Temperature Source Temporal Temporal Temporal Pulse Rate (60-100) 64 76 60 Pulse Location Monitor Monitor Monitor Respiratory Rate (12-18) 16 18 18 Respiratory rate source Observation Observation Observation Oxygen Delivery Method Nasal Cannula O2 L/MIN (L/min) 3 Blood Pressure (90/60-120/80) 141/74 H 148/70 H 166/71 H Blood Pressure Mean (mm Hg) 96 96 102 Source Monitor Monitor Monitor Position Semi-Fowlers Semi-Fowlers Sitting Blood Pressure Location Left Arm Left Arm Right Arm History Since Last Visit- (Skip if this is Patient's initial visit) Have you changed medications since your No No No last visit? Any new allergies or adverse reactions No No No Had a fall/change in ADL's that may No No No increase risk of falls Signs or symptoms of abuse and/or No No No neglect since last visit Have you been in the hospital since your No No No last visit? Has dressing in place as prescribed Yes Yes Yes Has compression in place as prescribed Yes Yes Has offloadiing in place as prescribed N/A No Experienced any changes in pain level or No No management Left Footwear Regular Shoe Regular Shoe Right Footwear Regular Shoe Regular Shoe Pain Scale: 0-10 Numeric Is Patient Pain Free? Yes Yes Yes WC - Nurse 1 - General Ulcer Measurement Start: 10/10/22 08:56 Freq: Status: Active Protocol: Activity Type Activity Date Activity User E-sign Co-sign Detail Recorded Client Recorded Date Recorded By Document 10/10/22 08:56 [id number] 10/10/22 09:10 JF Document 10/17/22 09:14 RB [id number] 10/17/22 09:22 RB Document 10/24/22 09:16 [facility] [id number] 10/24/22 09:24 BM 10/10/22 10/17/22 10/24/22 08:56 09:14 09:16 Wound Center Nurse 1 #2 R POST LE -Combined with other wound No No No -Current Size (cm) - Length 2.2 2.1 1.7 -Current Size (cm) - Width 3.1 2.9 2.3 -Current Size (cm) - Depth 0.1 0.1 0.2 -Total Square Cm 6.82 6.09 3.91 -Date of Last Picture (Recall this 10/24/22 field) -Photo Taken Yes Yes Yes -Epithelialization Medium 34-66% Small 1-33% -Tunneling No No No -Undermining/Tunneling No No No -Circular Undermining No No No -Exudate Amt Medium Medium Medium -Exudate Type Serosanguineous Serosanguineous Serosanguineous -Wound Margin Flat & Intact Distinct, Distinct, Outline Outline Attached Attached -Granulation Amt Large (67-100%) Medium (34-66%) Large (67-100%) -Granulation Quality [place] -Slough/Fibrin Yes Yes No -Necrosis Amt Small (1-33%) Large (67-100%) None Present (0 %) -Necrotic Tissue Type Adherent Slough Adherent Slough -Structure Exposed N/A N/A -Texture (Leticia-wound Skin Appearance) Assessed, Assessed Assessed, Scarring Scarring -Moisture ([place]-wound Skin Appearance) Assessed,Dry/ Assessed Assessed Scaly -Color ([place]icia-wound Skin Appearance) Assessed Assessed, Erythema -Temperature ([place]-wound Skin No Abnormality No Abnormality No Abnormality Appearance) (Pt Warm) (Pt Warm) (Pt Warm) -Tenderness on Palpation ([place]icia-wound No No Yes Skin Appearance) -Ulcer Cleansing Wound Cleanser Wound Cleanser Soap and Water -Foul Odor after Cleansing No No No -Anesthetic Used 5% Lidocaine 5% Lidocaine 5% Lidocaine Gel Gel Gel Lower Limb Edema Present Yes Yes Yes Right Calf (cm) 42.5 39.4 Right Ankle (cm) 24.5 23.1 Left Calf (cm) 38.5 Left Ankle (cm) 23.0 WC - Nurse 2 - General Ulcer CM Notes Start: 10/10/22 08:56 Freq: Status: Active Protocol: Activity Type Activity Date Activity User E-sign Co-sign Detail Recorded Client Recorded Date Recorded By Document 10/10/22 09:38 MW [id number] 10/10/22 09:51 MW Document 10/17/22 09:28 MW [id number] 10/17/22 09:39 MW Document 10/24/22 09:41 JF [id number] 10/24/22 09:45 JF 10/10/22 10/17/22 10/24/22 09:38 09:28 09:41 Wound Center Nurse 2 #2 R POST LE -Time 09:39 09:32 09:41 -Correct Patient Yes Yes Yes -Correct Side, Site, Position Yes Yes Yes -Correct Procedure Yes Yes Yes -Procedure Performed Yes Yes Yes -Type of Procedure Debridement Debridement Debridement -Clinical Debridement Subcutaneous Subcutaneous Subcutaneous -Tissue Removed Subcutaneous Subcutaneous Subcutaneous -Post Debridement (cm) - Length 2.0 1.7 1.8 -Post Debridement (cm) - Width 3.0 2.9 2.6 -Post Debridement (cm) - Depth 0.1 0.1 0.1 -Total Square (Post) (cm) 6.00 4.93 4.68 -Area of Debridement (cm) - Length 2.0 1.7 1.8 -Area of Debridement (cm) - Width 3.0 2.9 2.6 -Total Square (Area) (cm) 6.00 4.93 4.68 -Tunneling No No No -Undermining/Tunneling No No No -Circular Undermining No No No -Wound/Ulcer Outcome Not Healed Not Healed Not Healed -Ulcer Cleansing Rinsed/ Rinsed/ Rinsed/ Irrigated with Irrigated with Irrigated with Saline Saline Saline -Foul Odor after Cleansing No No No -Bioengineered Tissue No Yes No -Type of Bioengineered Tissue Epifix Mesh Epifix -Expiration Date 07/09/27 04/08/27 -Product Lot Number [id number] -Percent Used 100 100 -Lot number of Saline Used [id number] -Bleeding Controlled with Pressure Pressure Pressure -Treatment Response Procedure Procedure Procedure Tolerated Well Tolerated Well Tolerated Well -Offloading No No No -Debridement - Subq, 1st 20sq cm No No Yes -Apply Skin Sub - 1st 25 sq cm - Legs 1 1 -Epifix (per sq cm) 4 -Epifix Mesh (per sq cm) 11 Pain Scale: 0-10 Numeric Is Patient Pain Free? Yes Yes Yes - Nurse 3 - General Ulcer D/C NN Start: 10/10/22 08:56 Freq: Status: Active Protocol: Activity Type Activity Date Activity User E-sign Co-sign Detail Recorded Client Recorded Date Recorded By Document 10/10/22 10:24 [id number] 10/10/22 10:24 Document 10/17/22 09:49 RB [id number] 10/17/22 09:50 RB Document 10/24/22 09:56 RB [id number] 10/24/22 09:58 RB 10/10/22 10/17/22 10/24/22 10:24 09:49 09:56 Wound Care Center Nurse 3 #2 R POST LE -Ulcer Cleansing Rinsed/ Rinsed/ Irrigated with Irrigated with Saline Saline -Foul Odor after Cleansing No -Primary Dressing Applied C Hydrogel ($) C Hydrogel ($), Mepilex Border -Primary Dressing Covered/Secured with Dry Gauze & Dry Gauze,Dry Roll Gauze, Gauze & Roll Secured with Gauze,Secured Tape with Tape -Mepilex Border 1 Right -Stockings Yes: circaid -Other circaids bilat circaid Treatment Response Procedure Procedure Tolerated Well Tolerated Well Pain Scale: 0-10 Numeric Is Patient Pain Free? Yes Yes Yes WC - Visit Discharge Discharge Condition Stable Stable Ambulatory Status Ambulatory Ambulatory, Ambulatory Walker Transportation Private Auto Private Auto Private Auto Medication Reconcilliation completed & Yes No No provided to patient/care provider Clinical Summary of Care Provided Yes Yes Yes Assessment/Plan Assessment/Plan (1) Venous stasis ulcer of left lower leg with edema of left lower leg: CODE(S): I83.029 - Varicose veins of left lower extremity with ulcer of unspecified site; I83.892 - Varicose veins of left lower extremity with other complications; L97.929 - Non-pressure chronic ulcer of unspecified part of left lower leg with unspecified severity; R60.9 - Edema, unspecified (2) Diabetes mellitus: CODE(S): E11.9 - Type 2 diabetes mellitus without complications QUALIFIERS: Diabetes mellitus type: type 2 Diabetes mellitus fdc insulin use: without fpc use Diabetes mellitus complication status: with neurologic complications Diabetes mellitus complication detail: with polyneuropathy Qualified Code(s): E11.42 - Type 2 diabetes mellitus with diabetic polyneuropathy (3) Chronic obstructive pulmonary disease: CODE(S): J44.9 - Chronic obstructive pulmonary disease, unspecified QUALIFIERS: COPD type: unspecified COPD Qualified Code(s): J44.9 - Chronic obstructive pulmonary disease, unspecified (4) Hypertension: CODE(S): I10 - Essential (primary) hypertension QUALIFIERS: Hypertension type: primary hypertension Qualified Code(s): I10 - Essential (primary) hypertension (5) 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: CODE(S): I83.019 - Varicose veins of right lower extremity with ulcer of unspecified site; L97.919 - Non-pressure chronic ulcer of unspecified part of right lower leg with unspecified severity (6) Nonhealing ulcer of left lower extremity with fat layer exposed: CODE(S): L97.922 - Non-pressure chronic ulcer of unspecified part of left lower leg with fat layer exposed (7) Nonhealing ulcer of right lower extremity with fat layer exposed: CODE(S): L97.912 - Non-pressure chronic ulcer of unspecified part of rightlower leg with fat layer exposed (8) Supplemental oxygen dependent: CODE(S): Z99.81 - Dependence on supplemental oxygen PLAN: Plan Debridement performed today in clinic as annotated above. At home wound-care instructions: Will have her apply hydrogel and cover with silicone foam bordered dressing every other day. Off-loading: The patient was instructed to avoid pressure and friction on the affected areas. Reposition every 2 hours at minimum. Avoid prolonged standing and/or dangling of legs. When seated, feet should be elevated at chest level. Frequent ambulation is encouraged. Diet: Patient encouraged to increase protein intake while taking caution to avoid high carbohydrate and/or sugar intake. Labs/cultures/imaging: Vascular testing ordered to evaluate for arterial and venous disease showed incompetence of accessory saphenous veins b/l and normal arterial studies except decreased at level of great toe. Follow-up: Return in 2 weeks for wound care follow up. Return sooner or report to the emergency room should symptoms worsen, or new symptoms arise. Note: [employer] speech recognition auto motor mechanic software was used to create portions of this document. Sound-alike and misspelled words, as well as other auto motor mechanic errors may be contained in the documentation. 10/24/22 1511 <Electronically signed by Nisha Magallon DO> Cosigner Signature (if applicable): CC: ~ Signed [facility] Work Phone: 1(678) 619-953505-12-[address] Magallon [facility] October 17, 2022 2:06pm Note Date/Time October 17, 2022 2:06p [facility] [address] [place] [id number] Progress Note - Wound Care 10/17/22 1401 MR#: [id number] Acct: [id number] Name: KANDI CORREIA Rep #:[id number] : 1945 77 From: Nisha Magallon DO PCP: Dr. Jalyn Smith MD Status:REG R CR Location: History of Present Illness Date of Service: 10/17/22 Chief Complaint: Venous leg ulcer left lower extremity and right lower extremity History of Wound: This is a 76-year-old white female who presents to the wound healing center today with complaint of nonhealing ulceration of her right and left lower extremities. She has a past medical history significant for chronic hypoxia on supplemental O2, COPD, type 2 diabetes mellitus, CHF, and osteoarthritis of the bilateral knees and GERD. The patient states that her wounds initially occurred after scratching the back of her leg on something almost a month ago. She saw her PCP last week and was started on Cephalexin QID x 10 days. She was 2 days left of treatment. She has not had any improvement in her pain or ulcers since starting the antibiotic. Shehas been applying triple antibiotic ointment covering with gauze for the last few days but had been using hydrogel and nonadherent dressings prior to that. She states that she has not been utilizing any compression due to pain but has been elevating her legs more frequently and using a wedge pillow. She denies any systemic or localized signs of infection at this time. Denies any prior cultures being taken. 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 Subjective Subjective Kandi tolerated Epifix treatment well. Left posterior calf improved in size. Sheremains healed today on her right calf. Denies fever, chills, increased drainage, increased pain or increased erythema. Objective Data Objective Data Vital Signs: Vital Signs Temp Pulse Resp BP O2 Flow Rate 96.7 F L 76 18 148/70 H 3 10/17/22 09:14 10/17/22 09:14 10/17/22 09:14 10/17/22 09:14 10/17/22 09:14 Oxygen Flow Rate (L/min) 3 Weight: 91.777 kg Body Mass Index (BMI) 34.7 Physical Exam Const alert, oriented x3 and no apparent distress General Appearance: cooperative and comfortable HEENT normocephalic and head/scalp atraumatic Resp normal respiratory effort Effort and Inspection: able to speak in complete sentences Cardio regular rate and regular rhythm Skin Wounds: wounds noted Wound Narrative: as in clinical panel Psych mental status grossly normal, thought process normal, cooperative and affect normal Debridement Note Debridement Note Wound debrided: Left posterior LE Laterality: Left Type of Debridement: Excisional debridement Anesthesia Used: 4% Lidocaine Solution, 5% Lidocaine Gel and Cetacaine Depth: Down to and including healthy tissue and in the subcutaneous layer Percentage of wound debrided: 100 Instrument Used: 5mm curette Tissue Removed: Yellow slough, devitalized tissue Severity: Fat Layer Exposed Amount of bleeding with debridement: Mild Bleeding Controlled with: Compression and gauze Patient tolerated procedure: Patient tolerated procedure well Post-Debridement Measurements and Additional Note: Post-Debridement Measurements/Treatment WC - Nurse 1 - General Ulcer Assessment Start: 10/10/22 08:56 Freq: Status: Active Protocol: CHING Activity Type Activity Date Activity User E-sign Co-sign Detail Recorded Client Recorded Date Recorded By Document 10/10/22 08:56 [id number] 10/10/22 09:10 Document 10/17/22 09:14 RB [id number] 10/17/22 09:22 RB 10/10/22 10/17/22 08:56 09:14 - Today's Visit Information Type of service Follow-up Visit Follow-up Visit (Physician/REFINERY OPERATOR HELPER (Physician/REFINERY OPERATOR HELPER ) ) Arrival Mode Ambulatory, Ambulatory, Walker Walker Transfer Assistance None Accompanied by Daughter Patient Identification Verified (Name & Yes Yes ) Patient Requires Transmission-Based No No Precautions Height and Weight Body Mass Index (BMI) 34.7 34.7 BMI Classification Obese Obese Vital Signs Temperature (97.8 F-99.1 F) 97.3 F L 96.7 F L Temperature Source Temporal Temporal Pulse Rate (60-100) 64 76 Pulse Location Monitor Monitor Respiratory Rate (12-18) 16 18 Respiratory rate source Observation Observation O2 L/MIN (L/min) 3 Blood Pressure (90/60-120/80) 141/74 H 148/70 H Blood Pressure Mean (mm Hg) 96 96 Source Monitor Monitor Position Semi-Fowlers Semi-Fowlers Blood Pressure Location Left Arm Left Arm History Since Last Visit- (Skip if this is Patient's initial visit) Have you changed medications since your No No last visit? Any new allergies or adverse reactions No No Had a fall/change in ADL's that may No No increase risk of falls Signs or symptoms of abuse and/or No No neglect since last visit Have you been in the hospital since your No No last visit? Has dressing in place as prescribed Yes Yes Has compression in place as prescribed Yes Yes Has offloadiing in place as prescribed N/A No Experienced any changes in pain level or No No management Left Footwear Regular Shoe Right Footwear Regular Shoe Pain Scale: 0-10 Numeric Is Patient Pain Free? Yes Yes - Nurse 1 - General Ulcer Measurement Start: 10/10/22 08:56 Freq: Status: Active Protocol: Activity Type Activity Date Activity User E-sign Co-sign Detail Recorded Client Recorded Date Recorded By Document 10/10/22 08:56 JF [id number] 10/10/22 09:10 JF Document 10/17/22 09:14 RB [id number] 10/17/22 09:22 RB 10/10/22 10/17/22 08:56 09:14 Wound Center Nurse 1 #2 R POST LE -Combined with other wound No No -Current Size (cm) - Length 2.2 2.1 -Current Size (cm) - Width 3.1 2.9 -Current Size (cm) - Depth 0.1 0.1 -Total Square Cm 6.82 6.09 -Photo Taken Yes Yes -Epithelialization Medium 34-66% -Tunneling No No -Undermining/Tunneling No No -Circular Undermining No No -Exudate Amt Medium Medium -Exudate Type Serosanguineous Serosanguineous -Wound Margin Flat & Intact Distinct, Outline Attached -Granulation Amt Large (67-100%) Medium (34-66%) -Granulation Quality [place] -Slough/Fibrin Yes Yes -Necrosis Amt Small (1-33%) Large (67-100%) -Necrotic Tissue Type Adherent Slough Adherent Slough -Structure Exposed N/A N/A -Texture (Leticia-wound Skin Appearance) Assessed, Assessed Scarring -Moisture (Leticia-wound Skin Appearance) Assessed,Dry/ Assessed Scaly -Color (Leticia-wound Skin Appearance) Assessed -Temperature (Leticia-wound Skin No Abnormality No Abnormality Appearance) (Pt Warm) (Pt Warm) -Tenderness on Palpation (Leticia-wound No No Skin Appearance) -Ulcer Cleansing Wound Cleanser Wound Cleanser -Foul Odor after Cleansing No No -Anesthetic Used 5% Lidocaine 5% Lidocaine Gel Gel Lower Limb Edema Present Yes Yes Right Calf (cm) 42.5 Right Ankle (cm) 24.5 Left Calf (cm) 38.5 Left Ankle (cm) 23.0 WC - Nurse 2 - General Ulcer CM Notes Start: 10/10/22 08:56 Freq: Status: Active Protocol: Activity Type Activity Date Activity User E-sign Co-sign Detail Recorded Client Recorded Date Recorded By Document 10/10/22 09:38 MW [id number] 10/10/22 09:51 MW Document 10/17/22 09:28 MW [id number] 10/17/22 09:39 MW 10/10/22 10/17/22 09:38 09:28 Wound Center Nurse 2 #2 R POST LE -Time 09:39 09:32 -Correct Patient Yes Yes -Correct Side, Site, Position Yes Yes -Correct Procedure Yes Yes -Procedure Performed Yes Yes -Type of Procedure Debridement Debridement -Clinical Debridement Subcutaneous Subcutaneous -Tissue Removed Subcutaneous Subcutaneous -Post Debridement (cm) - Length 2.0 1.7 -Post Debridement (cm) - Width 3.0 2.9 -Post Debridement (cm) - Depth 0.1 0.1 -Total Square (Post) (cm) 6.00 4.93 -Area of Debridement (cm) - Length 2.0 1.7 -Area of Debridement (cm) - Width 3.0 2.9 -Total Square (Area) (cm) 6.00 4.93 -Tunneling No No -Undermining/Tunneling No No -Circular Undermining No No -Wound/Ulcer Outcome Not Healed Not Healed -Ulcer Cleansing Rinsed/ Rinsed/ Irrigated with Irrigated with Saline Saline -Foul Odor after Cleansing No No -Bioengineered Tissue No Yes -Type of Bioengineered Tissue Epifix Mesh Epifix -Expiration Date 07/09/27 04/08/27 -Product Lot Number [id number] -Percent Used 100 100 -Lot number of Saline Used [id number] -Bleeding Controlled with Pressure Pressure -Treatment Response Procedure Procedure Tolerated Well Tolerated Well -Offloading No No -Debridement - Subq, 1st 20sq cm No No -Apply Skin Sub - 1st 25 sq cm - Legs 1 1 -Epifix (per sq cm) 4 -Epifix Mesh (per sq cm) 11 Pain Scale: 0-10 Numeric Is Patient Pain Free? Yes Yes WC - Nurse 3 - General Ulcer D/C NN Start: 10/10/22 08:56 Freq: Status: Active Protocol: Activity Type Activity Date Activity User E-sign Co-sign Detail Recorded Client Recorded Date Recorded By Document 10/10/22 10:24 SHARON [id number] 10/10/22 10:24 JF Document 10/17/22 09:49 RB [id number] 10/17/22 09:50 RB 10/10/22 10/17/22 10:24 09:49 Wound Care Center Nurse 3 #2 R POST LE -Ulcer Cleansing Rinsed/ Irrigated with Saline -Foul Odor after Cleansing No -Primary Dressing Applied C Hydrogel ($) -Primary Dressing Covered/Secured with Dry Gauze & Dry Gauze,Dry Roll Gauze, Gauze & Roll Secured with Gauze,Secured Tape with Tape Right -Stockings Yes: circaid -Other circaids bilat Treatment Response Procedure Tolerated Well Pain Scale: 0-10 Numeric Is Patient Pain Free? Yes Yes WC - Visit Discharge Discharge Condition Stable Stable Ambulatory Status Ambulatory Ambulatory, Walker Transportation Private Auto Private Auto Medication Reconcilliation completed & Yes No provided to patient/care provider Clinical Summary of Care Provided Yes Yes Assessment/Plan Assessment/Plan (1) Venous stasis ulcer of left lower leg with edema of left lower leg: CODE(S): I83.029 - Varicose veins of left lower extremity with ulcer of unspecified site; I83.892 - Varicose veins of left lower extremity with other complications; L97.929 - Non-pressure chronic ulcer of unspecified part of left lower leg with unspecified severity; R60.9 - Edema, unspecified (2) Diabetes mellitus: CODE(S): E11.9 - Type 2 diabetes mellitus without complications QUALIFIERS: Diabetes mellitus type: type 2 Diabetes mellitus fdc insulin use: without fpc use Diabetes mellitus complication status: with neurologic complications Diabetes mellitus complication detail: with polyneuropathy Qualified Code(s): E11.42 - Type 2 diabetes mellitus with diabetic polyneuropathy (3) Chronic obstructive pulmonary disease: CODE(S): J44.9 - Chronic obstructive pulmonary disease, unspecified QUALIFIERS: COPD type: unspecified COPD Qualified Code(s): J44.9 - Chronic obstructive pulmonary disease, unspecified (4) Hypertension: CODE(S): I10 - Essential (primary) hypertension QUALIFIERS: Hypertension type: primary hypertension Qualified Code(s): I10 - Essential (primary) hypertension (5) 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: CODE(S): I83.019 - Varicose veins of right lower extremity with ulcer of unspecified site; L97.919 - Non-pressure chronic ulcer of unspecified part of right lower leg with unspecified severity (6) Nonhealing ulcer of left lower extremity with fat layer exposed: CODE(S): L97.922 - Non-pressure chronic ulcer of unspecified part of left lower leg with fat layer exposed (7) Nonhealing ulcer of right lower extremity with fat layer exposed: CODE(S): L97.912 - Non-pressure chronic ulcer of unspecified part of rightlower leg with fat layer exposed (8) Supplemental oxygen dependent: CODE(S): Z99.81 - Dependence on supplemental oxygen PLAN: Plan Debridement performed today in clinic as annotated above. At home wound-care instructions: Epifix #10 applied to her right posterior LE ulcer today per operations architect guidelines using 100% of product, rehydrated with hydrogel and covered with adaptic touch and secured with steristrips. She will not change the dressing on this for 1 week unless there is drainage and then would change secondary gauze dressing. Reapply hydrogel daily. Off-loading: The patient was instructed to avoid pressure and friction on the affected areas. Reposition every 2 hours at minimum. Avoid prolonged standing and/or dangling of legs. When seated, feet should be elevated at chest level. Frequent ambulation is encouraged. Diet: Patient encouraged to increase protein intake while taking caution to avoid high carbohydrate and/or sugar intake. Labs/cultures/imaging: Vascular testing ordered to evaluate for arterial and venous disease showed incompetence of accessory saphenous veins b/l and normal arterial studies except decreased at level of great toe. Follow-up: Return in 1 week for wound care follow up. Return sooner or report tothe emergency room should symptoms worsen, or new symptoms arise. Note: [employer] speech recognition auto motor mechanic software was used to create portions of this document. Sound-alike and misspelled words, as well as other auto motor mechanic errors may be contained in the documentation. 10/17/22 1400 <Electronically signed by Nisha Magallon DO> Cosigner Signature (if applicable): CC: ~ Signed [facility] Work Phone: [phone]) 834-321205-05-[address] Magallon [facility] October 10, 2022 2:00pm Note Date/Time October 10, 2022 1:59pm [facility] [address] [place] [id number] Progress Note - Wound Care 10/10/22 1357 MR#: [id number] Acct: [id number] Name: KANDI CORREIA Rep #:[id number] : 1945 77 From: Nisha Magallon DO PCP: Dr. Jalyn Smith MD Status:REG R CR Location: History of Present Illness Date of Service: 10/10/22 Chief Complaint: Venous leg ulcer left lower extremity and right lower extremity History of Wound: This is a 76-year-old white female who presents to the wound healing center today with complaint of nonhealing ulceration of her right and left lower extremities. She has a past medical history significant for chronic hypoxia on supplemental O2, COPD, type 2 diabetes mellitus, CHF, and osteoarthritis of the bilateral knees and GERD. The patient states that her wounds initially occurred after scratching the back of her leg on something almost a month ago. She saw her PCP last week and was started on Cephalexin QID x 10 days. She was 2 days left of treatment. She has not had any improvement in her pain or ulcers since starting the antibiotic. Shehas been applying triple antibiotic ointment covering with gauze for the last few days but had been using hydrogel and nonadherent dressings prior to that. She states that she has not been utilizing any compression due to pain but has been elevating her legs more frequently and using a wedge pillow. She denies any systemic or localized signs of infection at this time. Denies any prior cultures being taken. 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 Subjective Subjective Kandi tolerated Epifix treatment well. Left posterior calf improved in size. Sheremains healed today on her right calf. Denies fever, chills, increased drainage, increased pain or increased erythema. Objective Data Objective Data Vital Signs: Vital Signs Temp Pulse Resp BP O2 Flow Rate 97.3 F L 64 16 141/74 H 2 10/10/22 08:56 10/10/22 08:56 10/10/22 08:56 10/10/22 08:56 10/06/22 00:39 Oxygen Flow Rate (L/min) 2 Weight: 91.777 kg Body Mass Index (BMI) 34.7 Physical Exam Const alert, oriented x3 and no apparent distress General Appearance: cooperative and comfortable HEENT normocephalic and head/scalp atraumatic Resp normal respiratory effort Effort and Inspection: able to speak in complete sentences Cardio regular rate and regular rhythm Skin Wounds: wounds noted Wound Narrative: as in clinical panel Psych mental status grossly normal, thought process normal, cooperative and affect normal Debridement Note Debridement Note Wound debrided: Left posterior LE Laterality: Left Type of Debridement: Excisional debridement Anesthesia Used: 4% Lidocaine Solution, 5% Lidocaine Gel and Cetacaine Depth: Down to and including healthy tissue and in the subcutaneous layer Percentage of wound debrided: 100 Instrument Used: 5mm curette Tissue Removed: Yellow slough, devitalized tissue Severity: Fat Layer Exposed Amount of bleeding with debridement: Mild Bleeding Controlled with: Compression and gauze Patient tolerated procedure: Patient tolerated procedure well Post-Debridement Measurements and Additional Note: Post-Debridement Measurements/Treatment - Nurse 1 - General Ulcer Assessment Start: 10/10/22 08:56 Freq: Status: Active Protocol: CHING Activity Type Activity Date Activity User E-sign Co-sign Detail Recorded Client Recorded Date Recorded By Document 10/10/22 08:56 [id number] 10/10/22 09:10 10/10/22 08:56 - Today's Visit Information Type of service Follow-up Visit (Physician/REFINERY OPERATOR HELPER ) Arrival Mode Ambulatory, Walker Accompanied by Daughter Patient Identification Verified (Name & Yes ) Patient Requires Transmission-Based No Precautions Height and Weight Body Mass Index (BMI) 34.7 BMI Classification Obese Vital Signs Temperature (97.8 F-99.1 F) 97.3 F L Temperature Source Temporal Pulse Rate (60-100) 64 Pulse Location Monitor Respiratory Rate (12-18) 16 Respiratory rate source Observation Blood Pressure (90/60-120/80) 141/74 H Blood Pressure Mean (mm Hg) 96 Source Monitor Position Semi-Fowlers Blood Pressure Location Left Arm History Since Last Visit- (Skip if this is Patient's initial visit) Have you changed medications since your No last visit? Any new allergies or adverse reactions No Had a fall/change in ADL's that may No increase risk of falls Signs or symptoms of abuse and/or No neglect since last visit Have you been in the hospital since your No last visit? Has dressing in place as prescribed Yes Has compression in place as prescribed Yes Has offloadiing in place as prescribed N/A Experienced any changes in pain level or No management Left Footwear Regular Shoe Right Footwear Regular Shoe Pain Scale: 0-10 Numeric Is Patient Pain Free? Yes - Nurse 1 - General Ulcer Measurement Start: 10/10/22 08:56 Freq: Status: Active Protocol: Activity Type Activity Date Activity User E-sign Co-sign Detail Recorded Client Recorded Date Recorded By Document 10/10/22 08:56 [id number] 10/10/22 09:10 SHARON 10/10/22 08:56 Wound Center Nurse 1 #2 R POST LE -Combined with other wound No -Current Size (cm) - Length 2.2 -Current Size (cm) - Width 3.1 -Current Size (cm) - Depth 0.1 -Total Square Cm 6.82 -Photo Taken Yes -Epithelialization Medium 34-66% -Tunneling No -Undermining/Tunneling No -Circular Undermining No -Exudate Amt Medium -Exudate Type Serosanguineous -Wound Margin Flat & Intact -Granulation Amt Large (67-100%) -Granulation Quality [place] -Slough/Fibrin Yes -Necrosis Amt Small (1-33%) -Necrotic Tissue Type Adherent Slough -Structure Exposed N/A -Texture (Leticia-wound Skin Appearance) Assessed, Scarring -Moisture (Leticia-wound Skin Appearance) Assessed,Dry/ Scaly -Color (Leticia-wound Skin Appearance) Assessed -Temperature (Leticia-wound Skin No Abnormality Appearance) (Pt Warm) -Tenderness on Palpation (Leticia-wound No Skin Appearance) -Ulcer Cleansing Wound Cleanser -Foul Odor after Cleansing No -Anesthetic Used 5% Lidocaine Gel Lower Limb Edema Present Yes Left Calf (cm) 38.5 Left Ankle (cm) 23.0 DASH - Nurse 2 - General Ulcer CM Notes Start: 10/10/22 08:56 Freq: Status: Active Protocol: Activity Type Activity Date Activity User E-sign Co-sign Detail Recorded Client Recorded Date Recorded By Document 10/10/22 09:38 MW [id number] 10/10/22 09:51 MW 10/10/22 09:38 Wound Center Nurse 2 #2 R POST LE -Time 09:39 -Correct Patient Yes -Correct Side, Site, Position Yes -Correct Procedure Yes -Procedure Performed Yes -Type of Procedure Debridement -Clinical Debridement Subcutaneous -Tissue Removed Subcutaneous -Post Debridement (cm) - Length 2.0 -Post Debridement (cm) - Width 3.0 -Post Debridement (cm) - Depth 0.1 -Total Square (Post) (cm) 6.00 -Area of Debridement (cm) - Length 2.0 -Area of Debridement (cm) - Width 3.0 -Total Square (Area) (cm) 6.00 -Tunneling No -Undermining/Tunneling No -Circular Undermining No -Wound/Ulcer Outcome Not Healed -Ulcer Cleansing Rinsed/ Irrigated with Saline -Foul Odor after Cleansing No -Bioengineered Tissue No -Type of Bioengineered Tissue Epifix Mesh -Expiration Date 07/09/27 -Product Lot Number [id number] -Percent Used 100 -Lot number of Saline Used [id number] -Bleeding Controlled with Pressure -Treatment Response Procedure Tolerated Well -Offloading No -Debridement - Subq, 1st 20sq cm No -Apply Skin Sub - 1st 25 sq cm - Legs 1 -Epifix Mesh (per sq cm) 11 Pain Scale: 0-10 Numeric Is Patient Pain Free? Yes - Nurse 3 - General Ulcer D/C NN Start: 10/10/22 08:56 Freq: Status: Active Protocol: Activity Type Activity Date Activity User E-sign Co-sign Detail Recorded Client Recorded Date Recorded By Document 10/10/22 10:24 SHARON [id number] 10/10/22 10:24 SHARON 10/10/22 10:24 Wound Care Center Nurse 3 #2 R POST LE -Ulcer Cleansing Rinsed/ Irrigated with Saline -Foul Odor after Cleansing No -Primary Dressing Covered/Secured with Dry Gauze & Roll Gauze, Secured with Tape Right -Stockings Yes: circaid Pain Scale: 0-10 Numeric Is Patient Pain Free? Yes WC - Visit Discharge Discharge Condition Stable Ambulatory Status Ambulatory Transportation Private Auto Medication Reconcilliation completed & Yes provided to patient/care provider Clinical Summary of Care Provided Yes Assessment/Plan Assessment/Plan (1) Venous stasis ulcer of left lower leg with edema of left lower leg: CODE(S): I83.029 - Varicose veins of left lower extremity with ulcer of unspecified site; I83.892 - Varicose veins of left lower extremity with other complications; L97.929 - Non-pressure chronic ulcer of unspecified part of left lower leg with unspecified severity; R60.9 - Edema, unspecified (2) Diabetes mellitus: CODE(S): E11.9 - Type 2 diabetes mellitus without complications QUALIFIERS: Diabetes mellitus type: type 2 Diabetes mellitus fdc insulin use: without long term care administrator use Diabetes mellitus complication status: with neurologic complications Diabetes mellitus complication detail: with polyneuropathy Qualified Code(s): E11.42 - Type 2 diabetes mellitus with diabetic polyneuropathy (3) Chronic obstructive pulmonary disease: CODE(S): J44.9 - Chronic obstructive pulmonary disease, unspecified QUALIFIERS: COPD type: unspecified COPD Qualified Code(s): J44.9 - Chronic obstructive pulmonary disease, unspecified (4) Hypertension: CODE(S): I10 - Essential (primary) hypertension QUALIFIERS: Hypertension type: primary hypertension Qualified Code(s): I10 - Essential (primary) hypertension (5) 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: CODE(S): I83.019 - Varicose veins of right lower extremity with ulcer of unspecified site; L97.919 - Non-pressure chronic ulcer of unspecified part of right lower leg with unspecified severity (6) Nonhealing ulcer of left lower extremity with fat layer exposed: CODE(S): L97.922 - Non-pressure chronic ulcer of unspecified part of left lower leg with fat layer exposed (7) Nonhealing ulcer of right lower extremity with fat layer exposed: CODE(S): L97.912 - Non-pressure chronic ulcer of unspecified part of rightlower leg with fat layer exposed (8) Supplemental oxygen dependent: CODE(S): Z99.81 - Dependence on supplemental oxygen PLAN: Plan Debridement performed today in clinic as annotated above. At home wound-care instructions: Epifix #9 applied to her right posterior LE ulcer today per operations architect guidelines using 100% of product, rehydrated with hydrogel and covered with adaptic touch and secured with steristrips. She will not change the dressing on this for 1 week unless there is drainage and then would change secondary gauze dressing. Reapply hydrogel daily. Off-loading: The patient was instructed to avoid pressure and friction on the affected areas. Reposition every 2 hours at minimum. Avoid prolonged standing and/or dangling of legs. When seated, feet should be elevated at chest level. Frequent ambulation is encouraged. Diet: Patient encouraged to increase protein intake while taking caution to avoid high carbohydrate and/or sugar intake. Labs/cultures/imaging: Vascular testing ordered to evaluate for arterial and venous disease showed incompetence of accessory saphenous veins b/l and normal arterial studies except decreased at level of great toe. Follow-up: Return in 1 week for wound care follow up. Return sooner or report tothe emergency room should symptoms worsen, or new symptoms arise. Note: [employer] speech recognition auto motor mechanic software was used to create portions of this document. Sound-alike and misspelled words, as well as other auto motor mechanic errors may be contained in the documentation. 10/10/22 1400 <Electronically signed by Nisha Magallon DO> Cosigner Signature (if applicable): CC: ~ Signed [facility] Work Phone: [phone] 730-656505-01-2023 History of Present illness Narrative* Darlene Urbano RN - 10/15/2022 9:28 AM EDT [facility] Telephonic Outreach Provider Action/FYI Patient reports going to Physical Therapy, feels sore - may have overdone it. Had to cancel appointment yesterday. Has been doing exercises at home. Encouraged her to return to Physical Therapy - patient report TKR is not an option due to other health issues. Breathing is not good more [place] - patient can't find rescue inhaler - Separate refill encounter pended for provider's review. Encouraged patient to use PRN ipratropium in nebulizer. Updated Goals, ADLs and Falls assessment Contacted for: Routine Telephonic Outreach Contact made with patient: Yes Patient identified by name and date of . Discussed care with patient Are you experiencing any new or worsening symptoms you need to talk about today? 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 Routed to: No Action Needed SAMMY Education Provided this Outreach: No Darlene Urbano RN October 15, 2022 10:08 AM * Darlene Urbano RN - 10/14/2022 2:04 PM EDT [facility] Telephonic Outreach Provider Action/FYI Contacted for: Routine Telephonic Outreach Contact made with patient: No, left message. Darlene Urbano RN October 14, 2022 2:16 PM [facility]Bl[facility] Miscellaneous Notes* Telephone Encounter - Darlene Urbano RN - 10/15/2022 10:13 AM EDT Patient phones requesting refills as follows: Requested Prescriptions Pending Prescriptions Disp Refills albuterol HFA (VENTOLIN HFA) 90 mcg/actuation inhaler 18 g 3 Sig: Inhale 2 Puffs as instructed every 4 hours as needed for wheezing/shortness of breath. Please review and advise. Darlene Urbano RN documented in this encounterBl[facility]04-28-[address] Magallon [facility] October 03, 2022 11:20am Note Date/Time October 03, 2022 11: 20am [facility] [address] [place] [id number] Progress Note - Wound Care 10/03/22 1108 MR#: [id number] Acct: [id number] Name: KANDI CORREIA Rep #:[id number] : 1945 77 From: Nisha Magallon DO PCP: Dr. Jalyn Smith MD Status:REG R CR Location: History of Present Illness Date of Service: 10/03/22 Chief Complaint: Venous leg ulcer left lower extremity and right lower extremity History of Wound: This is a 76-year-old white female who presents to the wound healing center today with complaint of nonhealing ulceration of her right and left lower extremities. She has a past medical history significant for chronic hypoxia on supplemental O2, COPD, type 2 diabetes mellitus, CHF, and osteoarthritis of the bilateral knees and GERD. The patient states that her wounds initially occurred after scratching the back of her leg on something almost a month ago. She saw her PCP last week and was started on Cephalexin QID x 10 days. She was 2 days left of treatment. She has not had any improvement in her pain or ulcers since starting the antibiotic. Shehas been applying triple antibiotic ointment covering with gauze for the last few days but had been using hydrogel and nonadherent dressings prior to that. She states that she has not been utilizing any compression due to pain but has been elevating her legs more frequently and using a wedge pillow. She denies any systemic or localized signs of infection at this time. Denies any prior cultures being taken. 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 Subjective Subjective Kandi tolerated Epifix treatment well. She remains healed today on her right calf. Denies fever, chills, increased drainage, increased pain or increased erythema. Objective Data Objective Data Vital Signs: Vital Signs Temp Pulse Resp BP O2 Del Method O2 Flow Rate 96.6 F L 71 18 124/73 H Room Air 2 10/03/22 08:32 10/03/22 08:32 10/03/22 08:32 10/03/22 08:32 09/12/22 08:27 09/26/22 08:51 Oxygen Flow Rate (L/min) 2 Oxygen Delivery Method Room Air Weight: 91.777 kg Body Mass Index (BMI) 34.7 Physical Exam Const alert, oriented x3 and no apparent distress General Appearance: cooperative and comfortable HEENT normocephalic and head/scalp atraumatic Resp normal respiratory effort Effort and Inspection: able to speak in complete sentences Cardio regular rate and regular rhythm Skin Wounds: wounds noted Wound Narrative: as in clinical panel Psych mental status grossly normal, thought process normal, cooperative and affect normal Debridement Note Debridement Note Wound debrided: Left posterior LE Laterality: Left Type of Debridement: Excisional debridement Anesthesia Used: 4% Lidocaine Solution, 5% Lidocaine Gel and Cetacaine Depth: Down to and including healthy tissue and in the subcutaneous layer Percentage of wound debrided: 100 Instrument Used: 5mm curette Tissue Removed: Yellow slough, devitalized tissue Severity: Fat Layer Exposed Amount of bleeding with debridement: Mild Bleeding Controlled with: Compression and gauze Patient tolerated procedure: Patient tolerated procedure well Post-Debridement Measurements and Additional Note: Post-Debridement Measurements/Treatment - Nurse 1 - General Ulcer Assessment Start: 09/12/22 08:26 Freq: Status: Active Protocol: DASH.LOWEXT Activity Type Activity Date Activity User E-sign Co-sign Detail Recorded Client Recorded Date Recorded By Document 09/12/22 08:27 MT [id number] 09/12/22 08:41 MT Document 09/19/22 08:28 RB [id number] 09/19/22 08:35 RB Document 09/26/22 08:51 RB [id number] 09/26/22 08:53 RB Edit Result 09/26/22 08:51 RB (1) [id number] 09/26/22 08:55 RB Document 10/03/22 08:32 DL Desktop 10/03/22 08:36 DL (1) Respiratory Rate (12-18) 18 => 20 H O2 L/MIN (L/min) => 2 09/12/22 09/19/22 09/26/22 08:27 08:28 08:51 WC - Today's Visit Information Type of service Follow-up Visit Follow-up Visit Follow-up Visit (Physician/REFINERY OPERATOR HELPER (Physician/REFINERY OPERATOR HELPER (Physician/REFINERY OPERATOR HELPER ) ) ) Arrival Mode Ambulatory, Ambulatory Ambulatory, Wheelchair Walker Transfer Assistance None None Accompanied by daughter Patient Identification Verified (Name & No Yes Yes ) Patient Requires Transmission-Based No No Precautions Safety Precautions Fall Prevention Height and Weight Body Mass Index (BMI) 34.7 34.7 34.7 BMI Classification Obese Obese Obese Vital Signs Temperature (97.8 F-99.1 F) 97 F L 97.8 F 97.8 F Temperature Source Temporal Temporal Temporal Pulse Rate (60-100) 58 L 96 72 Pulse Location Monitor Monitor Monitor Respiratory Rate (12-18) 18 18 20 H Respiratory rate source Observation Observation Observation Oxygen Delivery Method Room Air O2 L/MIN (L/min) 2 Blood Pressure (90/60-120/80) 124/65 H 148/97 H 150/70 H Blood Pressure Mean (mm Hg) 84 114 96 Source Monitor Monitor Monitor Position Sitting Semi-Fowlers Semi-Fowlers Blood Pressure Location Right Arm Left Arm Left Arm History Since Last Visit- (Skip if this is Patient's initial visit) Have you changed medications since your No No last visit? Any new allergies or adverse reactions No No Had a fall/change in ADL's that may No No increase risk of falls Signs or symptoms of abuse and/or No No neglect since last visit Have you been in the hospital since your No No last visit? Has dressing in place as prescribed Yes Yes Yes Has compression in place as prescribed N/A Yes Yes Has offloadiing in place as prescribed N/A No No Experienced any changes in pain level or No No No management Left Footwear Regular Shoe Right Footwear Regular Shoe Pain Scale: 0-10 Numeric Is Patient Pain Free? Yes Yes Yes 10/03/22 08:32 - Today's Visit Information Type of service Follow-up Visit (Physician/REFINERY OPERATOR HELPER ) Arrival Mode Ambulatory, Walker Transfer Assistance None Accompanied by Patient Identification Verified (Name & Yes ) Patient Requires Transmission-Based No Precautions Safety Precautions Height and Weight Body Mass Index (BMI) 34.7 BMI Classification Obese Vital Signs Temperature (97.8 F-99.1 F) 96.6 F L Temperature Source Temporal Pulse Rate (60-100) 71 Pulse Location Monitor Respiratory Rate (12-18) 18 Respiratory rate source Observation Oxygen Delivery Method O2 L/MIN (L/min) Blood Pressure (90/60-120/80) 124/73 H Blood Pressure Mean (mm Hg) 90 Source Monitor Position Blood Pressure Location History Since Last Visit- (Skip if this is Patient's initial visit) Have you changed medications since your No last visit? Any new allergies or adverse reactions No Had a fall/change in ADL's that may No increase risk of falls Signs or symptoms of abuse and/or No neglect since last visit Have you been in the hospital since your No last visit? Has dressing in place as prescribed Yes Has compression in place as prescribed Yes Has offloadiing in place as prescribed N/A Experienced any changes in pain level or No management Left Footwear Right Footwear Pain Scale: 0-10 Numeric Is Patient Pain Free? Yes - Nurse 1 - General Ulcer Measurement Start: 09/12/22 08:26 Freq: Status: Active Protocol: Activity Type Activity Date Activity User E-sign Co-sign Detail Recorded Client Recorded Date Recorded By Document 09/12/22 08:27 MT [id number] 09/12/22 08:41 MT Document 09/19/22 08:28 RB [id number] 09/19/22 08:35 RB Document 09/26/22 08:51 RB [id number] 09/26/22 08:53 RB Document 10/03/22 08:32 DL Desktop 10/03/22 08:36 DL 09/12/22 09/19/22 09/26/22 08:27 08:28 08:51 Wound Center Nurse 1 #3 L POST LE -Combined with other wound No -Current Size (cm) - Length 2.4 0.1 -Current Size (cm) - Width 0.6 0.1 -Current Size (cm) - Depth 0.1 0.1 -Total Square Cm 1.44 0.01 -Photo Taken Yes -Tunneling No -Undermining/Tunneling No -Circular Undermining No -Exudate Amt Small -Exudate Type Serosanguineous -Wound Margin Distinct, Outline Attached -Granulation Amt Medium (34-66%) -Granulation Quality [place] -Slough/Fibrin Yes -Necrosis Amt Medium (34-66%) -Necrotic Tissue Type Adherent Slough -Structure Exposed N/A -Texture (Leticia-wound Skin Appearance) Assessed, Scarring -Moisture (Leticia-wound Skin Appearance) Assessed -Color (Leticia-wound Skin Appearance) Assessed -Temperature (Leticia-wound Skin No Abnormality Appearance) (Pt Warm) -Tenderness on Palpation (Leticia-wound No Skin Appearance) -Ulcer Cleansing Wound Cleanser -Foul Odor after Cleansing No -Anesthetic Used 5% Lidocaine Gel #2 R POST LE -Combined with other wound No No -Current Size (cm) - Length 2.8 2.2 2.2 -Current Size (cm) - Width 4.0 3.9 3.5 -Current Size (cm) - Depth 0.1 0.2 0.1 -Total Square Cm 11.20 8.58 7.70 -Photo Taken Yes Yes -Tunneling No No -Undermining/Tunneling No No -Circular Undermining No No -Exudate Amt None Present Large Medium -Exudate Type Serosanguineous Serosanguineous -Wound Margin Flat & Intact Distinct, Distinct, Outline Outline Attached Attached -Granulation Amt Medium (34-66%) Medium (34-66%) -Granulation Quality [place] -Slough/Fibrin Yes Yes -Necrosis Amt Large (67-100%) Medium (34-66%) Medium (34-66%) -Necrotic Tissue Type Adherent Slough Adherent Slough Adherent Slough -Structure Exposed N/A N/A -Texture (Leticia-wound Skin Appearance) Assessed Assessed, Assessed, Scarring Scarring -Moisture (Leticia-wound Skin Appearance) Assessed Assessed Assessed -Color (Leticia-wound Skin Appearance) Assessed Assessed Assessed -Temperature (Leticia-wound Skin No Abnormality No Abnormality No Abnormality Appearance) (Pt Warm) (Pt Warm) (Pt Warm) -Tenderness on Palpation (Leticia-wound No No No Skin Appearance) -Ulcer Cleansing Rinsed/ Wound Cleanser Wound Cleanser Irrigated with Saline -Foul Odor after Cleansing No Yes, Due to No Product Use -Anesthetic Used 4% Lidocaine 5% Lidocaine 5% Lidocaine Solution Gel Gel Lower Limb Edema Present Yes Yes Right Calf (cm) 39.6 38 39.5 Right Ankle (cm) 23 22.4 22.7 Left Calf (cm) 38.6 40 40 Left Ankle (cm) 22.7 22.8 22.2 10/03/22 08:32 Wound Center Nurse 1 #3 L POST LE -Combined with other wound -Current Size (cm) - Length -Current Size (cm) - Width -Current Size (cm) - Depth -Total Square Cm -Photo Taken -Tunneling -Undermining/Tunneling -Circular Undermining -Exudate Amt -Exudate Type -Wound Margin -Granulation Amt -Granulation Quality -Slough/Fibrin -Necrosis Amt -Necrotic Tissue Type -Structure Exposed -Texture (Leticia-wound Skin Appearance) -Moisture (Leticia-wound Skin Appearance) -Color (Leticia-wound Skin Appearance) -Temperature (Leticia-wound Skin Appearance) -Tenderness on Palpation (Leticia-wound Skin Appearance) -Ulcer Cleansing -Foul Odor after Cleansing -Anesthetic Used #2 R POST LE -Combined with other wound -Current Size (cm) - Length 2.4 -Current Size (cm) - Width 3.5 -Current Size (cm) - Depth 0.1 -Total Square Cm 8.40 -Photo Taken Yes -Tunneling -Undermining/Tunneling -Circular Undermining -Exudate Amt Medium -Exudate Type Serosanguineous -Wound Margin Distinct, Outline Attached -Granulation Amt Medium (34-66%) -Granulation Quality [place] -Slough/Fibrin -Necrosis Amt Medium (34-66%) -Necrotic Tissue Type Adherent Slough -Structure Exposed N/A -Texture (Leticia-wound Skin Appearance) Scarring -Moisture (Leticia-wound Skin Appearance) No Abnormality -Color (Leticia-wound Skin Appearance) Hemosiderin Staining -Temperature (Leticia-wound Skin No Abnormality Appearance) (Pt Warm) -Tenderness on Palpation (Leticia-wound Skin Appearance) -Ulcer Cleansing Soap and Water -Foul Odor after Cleansing No -Anesthetic Used 5% Lidocaine Gel Lower Limb Edema Present Right Calf (cm) 40.5 Right Ankle (cm) 24.7 Left Calf (cm) Left Ankle (cm) WC - Nurse 2 - General Ulcer CM Notes Start: 09/12/22 08:26 Freq: Status: Active Protocol: Activity Type Activity Date Activity User E-sign Co-sign Detail Recorded Client Recorded Date Recorded By Document 09/12/22 08:45 MW Desktop 09/12/22 09:19 MW Document 09/19/22 09:18 MW [id number] 09/19/22 09:33 MW Document 09/26/22 09:01 MW [id number] 09/26/22 09:17 MW Document 10/03/22 08:51 MW Desktop 10/03/22 09:09 MW 09/12/22 09/19/22 09/26/22 08:45 09:18 09:01 Wound Center Nurse 2 #3 L POST LE -Time 08:45 09:18 -Correct Patient Yes Yes -Correct Side, Site, Position Yes Yes -Correct Procedure Yes Yes -Procedure Performed Yes No -Type of Procedure Debridement -Clinical Debridement Subcutaneous -Tissue Removed Subcutaneous -Post Debridement (cm) - Length 0.2 -Post Debridement (cm) - Width 0.2 -Post Debridement (cm) - Depth 0.1 -Total Square (Post) (cm) 0.04 -Area of Debridement (cm) - Length 0.2 -Area of Debridement (cm) - Width 0.2 -Total Square (Area) (cm) 0.04 -Tunneling No No -Undermining/Tunneling No No -Circular Undermining No No -Wound/Ulcer Outcome Not Healed Healed- Epithelialized -Ulcer Cleansing Rinsed/ Irrigated with Saline -Foul Odor after Cleansing No -Bioengineered Tissue No -Bleeding Controlled with Pressure -Treatment Response Procedure Tolerated Well -Offloading No -Debridement - Subq, 1st 20sq cm Yes #2 R POST LE -Time 08:45 09:19 09:05 -Correct Patient Yes Yes Yes -Correct Side, Site, Position Yes Yes Yes -Correct Procedure Yes Yes Yes -Procedure Performed Yes Yes Yes -Type of Procedure Debridement Debridement Debridement -Clinical Debridement Subcutaneous Subcutaneous Subcutaneous -Tissue Removed Subcutaneous Subcutaneous Subcutaneous -Post Debridement (cm) - Length 2.4 2.5 2.3 -Post Debridement (cm) - Width 4.0 4.0 3.7 -Post Debridement (cm) - Depth 0.1 1 0.1 -Total Square (Post) (cm) 9.60 10.00 8.51 -Area of Debridement (cm) - Length 2.4 2.5 2.3 -Area of Debridement (cm) - Width 4.0 4.0 3.7 -Total Square (Area) (cm) 9.60 10.00 8.51 -Tunneling No No No -Undermining/Tunneling No No No -Circular Undermining No No No -Wound/Ulcer Outcome Not Healed Not Healed Not Healed -Ulcer Cleansing Rinsed/ Rinsed/ Rinsed/ Irrigated with Irrigated with Irrigated with Saline Saline Saline -Foul Odor after Cleansing No No No -Bioengineered Tissue Yes Yes Yes -Type of Bioengineered Tissue Epifix Mesh Epifix Mesh Epifix Mesh -Expiration Date 05/08/27 05/08/27 05/08/27 -Product Lot Number [id number] -Percent Used 100 100 100 -Lot number of Saline Used [id number] -Bleeding Controlled with Pressure Pressure Pressure -Treatment Response Procedure Procedure Procedure Tolerated Well Tolerated Well Tolerated Well -Offloading No No No -Debridement - Subq, 1st 20sq cm No No No -Apply Skin Sub - 1st 25 sq cm - Legs 1 1 1 -Epifix Mesh (per sq cm) 11 11 11 Pain Scale: 0-10 Numeric Is Patient Pain Free? Yes Yes Yes 10/03/22 08:51 Wound Center Nurse 2 #3 L POST LE -Time -Correct Patient -Correct Side, Site, Position -Correct Procedure -Procedure Performed -Type of Procedure -Clinical Debridement -Tissue Removed -Post Debridement (cm) - Length -Post Debridement (cm) - Width -Post Debridement (cm) - Depth -Total Square (Post) (cm) -Area of Debridement (cm) - Length -Area of Debridement (cm) - Width -Total Square (Area) (cm) -Tunneling -Undermining/Tunneling -Circular Undermining -Wound/Ulcer Outcome -Ulcer Cleansing -Foul Odor after Cleansing -Bioengineered Tissue -Bleeding Controlled with -Treatment Response -Offloading -Debridement - Subq, 1st 20sq cm #2 R POST LE -Time 08:54 -Correct Patient Yes -Correct Side, Site, Position Yes -Correct Procedure Yes -Procedure Performed Yes -Type of Procedure Debridement -Clinical Debridement Subcutaneous -Tissue Removed Subcutaneous -Post Debridement (cm) - Length 2.2 -Post Debridement (cm) - Width 3.7 -Post Debridement (cm) - Depth 0.1 -Total Square (Post) (cm) 8.14 -Area of Debridement (cm) - Length 2.2 -Area of Debridement (cm) - Width 3.7 -Total Square (Area) (cm) 8.14 -Tunneling No -Undermining/Tunneling No -Circular Undermining No -Wound/Ulcer Outcome Not Healed -Ulcer Cleansing Rinsed/ Irrigated with Saline -Foul Odor after Cleansing No -Bioengineered Tissue No -Type of Bioengineered Tissue Epifix Mesh -Expiration Date 07/09/27 -Product Lot Number [id number] -Percent Used 100 -Lot number of Saline Used [id number] -Bleeding Controlled with Pressure -Treatment Response Procedure Tolerated Well -Offloading No -Debridement - Subq, 1st 20sq cm No -Apply Skin Sub - 1st 25 sq cm - Legs 1 -Epifix Mesh (per sq cm) 11 Pain Scale: 0-10 Numeric Is Patient Pain Free? Yes WC - Nurse 3 - General Ulcer D/C NN Start: 09/12/22 08:26 Freq: Status: Active Protocol: Activity Type Activity Date Activity User E-sign Co-sign Detail Recorded Client Recorded Date Recorded By Document 09/12/22 09:20 MW Desktop 09/12/22 09:24 MW Document 09/19/22 09:39 RB [id number] 09/19/22 09:40 RB Document 09/26/22 09:27 RB [id number] 04/21/23 09:28 RB 09/12/22 09/19/22 09/26/22 09:20 09:39 09:27 Wound Care Center Nurse 3 #3 L POST LE -Ulcer Cleansing Rinsed/ Irrigated with Saline -Foul Odor after Cleansing No -Negative Pressure Wound Therapy N/A -Primary Dressing Applied Mepilex Border -Other Dressing C.HYDROGEL -Mepilex Border 1 #2 R POST LE -Ulcer Cleansing Not Cleansed -Foul Odor after Cleansing No -Negative Pressure Wound Therapy N/A -Other Dressing abd abd -Primary Dressing Covered/Secured with Dry Gauze & Dry Gauze,Dry Dry Gauze & Roll Gauze, Gauze & Roll Roll Gauze, Secured with Gauze,Secured Secured with Tape with Tape Tape -Other Covering ABD PAD Right -Lotion applied to leg before No compression wrap -Stockings Yes -Other circaid circaid Left -Lotion applied to leg before No compression wrap -Stockings Yes -Other circaid circaid Treatment Response Procedure Procedure Procedure Tolerated Well Tolerated Well Tolerated Well Pain Scale: 0-10 Numeric Is Patient Pain Free? Yes Yes Yes Teaching: Wound Center Dressing Your Wound -Person Taught Patient -Teaching Method Discussion -Response to teaching Verbalize understanding WC - Visit Discharge Discharge Condition Stable Stable Stable Ambulatory Status Ambulatory, Ambulatory, Ambulatory, Walker Walker Walker Transportation Private Auto Private Auto Private Auto Accompanied by DAUGHTER Medication Reconcilliation completed & No No No provided to patient/care provider Clinical Summary of Care Provided Yes Yes Yes Assessment/Plan Assessment/Plan (1) Venous stasis ulcer of left lower leg with edema of left lower leg: CODE(S): I83.029 - Varicose veins of left lower extremity with ulcer of unspecified site; I83.892 - Varicose veins of left lower extremity with other complications; L97.929 - Non-pressure chronic ulcer of unspecified part of left lower leg with unspecified severity; R60.9 - Edema, unspecified (2) Diabetes mellitus: CODE(S): E11.9 - Type 2 diabetes mellitus without complications QUALIFIERS: Diabetes mellitus type: type 2 Diabetes mellitus fdc insulin use: without long term care administrator use Diabetes mellitus complication status: with neurologic complications Diabetes mellitus complication detail: with polyneuropathy Qualified Code(s): E11.42 - Type 2 diabetes mellitus with diabetic polyneuropathy (3) Chronic obstructive pulmonary disease: CODE(S): J44.9 - Chronic obstructive pulmonary disease, unspecified QUALIFIERS: COPD type: unspecified COPD Qualified Code(s): J44.9 - Chronic obstructive pulmonary disease, unspecified (4) Hypertension: CODE(S): I10 - Essential (primary) hypertension QUALIFIERS: Hypertension type: primary hypertension Qualified Code(s): I10 - Essential (primary) hypertension (5) 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: CODE(S): I83.019 - Varicose veins of right lower extremity with ulcer of unspecified site; L97.919 - Non-pressure chronic ulcer of unspecified part of right lower leg with unspecified severity (6) Nonhealing ulcer of left lower extremity with fat layer exposed: CODE(S): L97.922 - Non-pressure chronic ulcer of unspecified part of left lower leg with fat layer exposed (7) Nonhealing ulcer of right lower extremity with fat layer exposed: CODE(S): L97.912 - Non-pressure chronic ulcer of unspecified part of rightlower leg with fat layer exposed (8) Supplemental oxygen dependent: CODE(S): Z99.81 - Dependence on supplemental oxygen PLAN: Plan Debridement performed today in clinic as annotated above. At home wound-care instructions: Epifix #8 applied to her right posterior LE ulcer today per operations architect guidelines using 100% of product, rehydrated with hydrogel and covered with adaptic touch and secured with steristrips. She will not change the dressing on this for 1 week unless there is drainage and then would change secondary gauze dressing. Reapply hydrogel daily. Off-loading: The patient was instructed to avoid pressure and friction on the affected areas. Reposition every 2 hours at minimum. Avoid prolonged standing and/or dangling of legs. When seated, feet should be elevated at chest level. Frequent ambulation is encouraged. Diet: Patient encouraged to increase protein intake while taking caution to avoid high carbohydrate and/or sugar intake. Labs/cultures/imaging: Vascular testing ordered to evaluate for arterial and venous disease showed incompetence of accessory saphenous veins b/l and normal arterial studies except decreased at level of great toe. Follow-up: Return in 1 week for wound care follow up. Return sooner or report tothe emergency room should symptoms worsen, or new symptoms arise. Note: [employer] speech recognition auto motor mechanic software was used to create portions of this document. Sound-alike and misspelled words, as well as other auto motor mechanic errors may be contained in the documentation. 10/03/22 1120 <Electronically signed by Nisha Magallon DO> Cosigner Signature (if applicable): CC: ~ Signed [facility] Work Phone: [phone] History of Present illness Narrative* Jalyn Smith MD - 10/01/2022 1:01 PM EDT No chief complaint on file. HPI: Patient presents today for office visit for follow up. Wound healing: Going every Thursday. Wound is healing but slow process. Is wearing leg wraps now. Trying to elevated legs more during the day. Had bilateral knee injections and then followed up with gel injections. Now is doing PT once per week. Wondering what to do after this is over? DM: Reports overall feeling well. Medication side effects: No. Home sugar check frequency/results:does have supplies could check daily but not currently checking Hypoglycemic spells: No. Watching diet: Yes. Unexpected weight loss: No. Polyuria, polydipsia: No. Vision Changes: No. Foot lesions or numbness or pain: gabapentin has helped. HTN: Patient is compliant with meds Yes Monitors bp at home: No. Denies side effects: Yes. Chest pain: No. Dyspnea: No. Edema: No. Palpitations: No. Syncope: No. Headache: has had some headache. Dizziness: No. Scheduled to see pulmonary in December. Sees vascular in the fall. Emotionally is doing. Rls is good with current meds. MEDICATIONS: Current Outpatient Medications Medication Sig meloxicam (MOBIC) 15 mg tablet Take 1 tablet by mouth once daily. With food. hydroCHLOROthiazide (HYDRODIURIL, ESIDRIX) 12.5 mg capsule Take 2 capsules by mouth once daily. oxybutynin XL (DITROPAN XL) 5 mg 24 hr tablet Take 1 tablet by mouth once daily. baclofen (LIORESAL) 10 mg tablet Take 1 tablet by mouth three times daily. arformoterol (BROVANA) 15 mcg/2 mL nebulizer solution Inhale 2 mL as instructed every 12 hours. Maymix with Budesonide neb twice a day. budesonide (PULMICORT) 0.5 mg/2 mL nebulizer solution Use 2 mL via nebulizer twice daily. metFORMIN (GLUCOPHAGE) 500 mg tablet Take 1 tablet by mouth daily with breakfast. metoprolol succinate ER (TOPROL XL) 50 mg 24 hr tablet Take 3 tablets by mouth once daily. rOPINIRole (REQUIP) 0.5 mg tablet Take 3 tablets by mouth daily at bedtime. sertraline (ZOLOFT) 50 mg tablet Take 1 tab once a day. fluticasone (FLONASE) 50 mcg/actuation nasal spray USE 1 SPRAY IN EACH NOSTRIL ONCE DAILY. gabapentin (NEURONTIN) 100 mg capsule Take 1 capsule by mouth three times daily for 180 days. Lancets lancets Test blood sugar(s) 2 times daily. Dx: Type 2 DM - Controlled E11.9 Insulin: No blood sugar diagnostic (BLOOD GLUCOSE TEST) test strip Test blood sugar(s) 2 times daily. Dx: Type 2 DM - Controlled E11.9 Insulin: No ipratropium-albuterol (DUONEB) 0.5 mg-3 mg(2.5 mg base)/3 mL nebu Inhale 3 mL as instructed every 4hours as needed (Shortness of breath and wheezing). albuterol HFA (VENTOLIN HFA) 90 mcg/actuation inhaler Inhale 2 Puffs as instructed every 4 hours asneeded for Wheezing/Shortness of Breath. COMPOUNDED PRESCRIPTION Oxygen via nasal canula 2 L N/C DX: copd and hypoxia COMPOUNDED PRESCRIPTION Lightweight portable oxygen DX: copd, 2 L nc continuously No current facility-administered medications for this visit. 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 Perry (vascular) Fibromyalgia HTN (hypertension) OA (osteoarthritis) MICHEL (obstructive sleep apnea) not on CPAP Restless leg syndrome PAST SURGICAL HISTORY Procedure Laterality Date HYSTERECTOMY HX prolapse non ca, total TONSILLECTOMY HX FAMILY HISTORY Problem Relation Age of Onset other (lymphoma) Mother COPD Father other (bone cancer) Father Ischemic Heart Disease Son 33 Social History Tobacco Use Smoking status: Former Packs/day: 0.50 Years: 45.00 Pack years: 22.50 Types: Cigarettes Start date: 08/30/1966 Quit date: 01/29/2012 Years since quittin.6 Smokeless tobacco: Never Tobacco comments: Father smoked in childhood home. Spouse smoked briefly after marriage. Substance Use Topics Alcohol use: No Drug use: No Reviewed current medications, allergies, past medical history, surgical history, family history andsocial history today. REVIEW OF SYSTEMS All other reviewed and negative other than HPI. HEALTH MAINTENANCE: Reviewed health maintenance issues today and recommended the following in detail. Had her eye exam. HEPATITIS C SCREENING Never done SHINGRIX VACCINE(1 of 2) Never done ADVANCE DIRECTIVE DISCUSSION-- had dpoa, daughters are her surrogates. HBA1C due on 09/18/2022 VITALS: BP 112/72 Pulse 73 Wt 93.9 kg (207 lb) SpO2 95% BMI 35.53 kg/m Last 4 Encounter Wt Readings: Date: Wt: 07/17/2022 93 kg (205 lb) 06/20/2022 91.6 kg (202 lb) 03/20/2022 94.8 kg (209 lb) 09/18/2021 97.1 kg (214 lb) PHYSICAL EXAMINATION: General appearance: Well appearing, alert, in no acute distress, well-hydrated, well nourished. Skin: Skin color, texture, turgor normal, no suspicious rashes or lesions Head: Normocephalic, no masses, lesions, tenderness or abnormalities Eyes: Anicteric sclera. Pupils are equally round and reactive to light. Extraocular movements are intact. Lungs: decreased breath. No wheezing. Heart: RRR without murmur, gallop, or rubs. No ectopy Abdomen: Normal abdominal exam, Abdomen soft, non-tender. Bowel sounds normal. No masses, organomegaly Extremities: wraps in place. Using walker. ASSESSMENT/PLAN: 1. Essential hypertension - ICD9: 401.9, ICD10: I10 (primary diagnosis) - good control - Continue current medication(s) - Goal of BP <130/80 2. Thoracic aortic aneurysm without rupture, unspecified part (HCC) - ICD9: 441.2, ICD10: I71.20 - follow 3. Dissection of descending aorta (HCC) - ICD9: 441.00, ICD10: I71.00 - per vascular. 4. Centrilobular emphysema (HCC) - ICD9: 492.8, ICD10: J43.2 - see pulmonary 5. MICHEL (obstructive sleep apnea) - ICD9: 327.23, ICD10: G47.33 - stable. 6. Chronic respiratory failure with hypoxia (HCC) - ICD9: 518.83, 799.02, ICD10: J96.11 - wears oxygen. 7. Type 2 diabetes mellitus without complication, without long-term current use of insulin (HCC) - ICD9: 250.00, ICD10: E11.9 - Controlled - Continue current medications - HGB A1C 8. Recurrent major depression in partial remission (HCC) - ICD9: 296.35, ICD10: F33.41 - doing well. 9. Need for hepatitis C screening test - ICD9: V73.89, ICD10: Z11.59 - HEP C AB IA W/CONF SCRN Jalyn Smith MD [facility] Magallon [facility] September 26, 2022 9:46am Note Date/Time September 26, 2022 9:4 6am [facility] [address] [place] [id number] Progress Note - Wound Care 09/26/22 0943 MR#: [id number] Acct: [id number] Name: KANDI CORREIA Rep #:[id number] : 1945 77 From: Nisha Magallon DO PCP: Dr. Jalyn Smith MD Status:REG R CR Location: History of Present Illness Date of Service: 09/26/22 Chief Complaint: Venous leg ulcer left lower extremity and right lower extremity History of Wound: This is a 76-year-old white female who presents to the wound healing center today with complaint of nonhealing ulceration of her right and left lower extremities. She has a past medical history significant for chronic hypoxia on supplemental O2, COPD, type 2 diabetes mellitus, CHF, and osteoarthritis of the bilateral knees and GERD. The patient states that her wounds initially occurred after scratching the back of her leg on something almost a month ago. She saw her PCP last week and was started on Cephalexin QID x 10 days. She was 2 days left of treatment. She has not had any improvement in her pain or ulcers since starting the antibiotic. Shehas been applying triple antibiotic ointment covering with gauze for the last few days but had been using hydrogel and nonadherent dressings prior to that. She states that she has not been utilizing any compression due to pain but has been elevating her legs more frequently and using a wedge pillow. She denies any systemic or localized signs of infection at this time. Denies any prior cultures being taken. 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 Subjective Subjective Kandi tolerated Epifix treatment well. She remains healed today on her right calf. Denies fever, chills, increased drainage, increased pain or increased erythema. Objective Data Objective Data Vital Signs: Vital Signs Temp Pulse Resp BP O2 Del Method O2 Flow Rate 97.8 F 72 20 H 150/70 H Room Air 2 09/26/22 08:51 09/26/22 08:51 09/26/22 08:51 09/26/22 08:51 09/12/22 08:27 09/26/22 08:51 Oxygen Flow Rate (L/min) 2 Oxygen Delivery Method Room Air Weight: 91.777 kg Body Mass Index (BMI) 34.7 Physical Exam Const alert, oriented x3 and no apparent distress General Appearance: cooperative and comfortable HEENT normocephalic and head/scalp atraumatic Resp normal respiratory effort Effort and Inspection: able to speak in complete sentences Cardio regular rate and regular rhythm Skin Wounds: wounds noted Wound Narrative: as in clinical panel Psych mental status grossly normal, thought process normal, cooperative and affect normal Debridement Note Debridement Note Wound debrided: Left posterior LE Laterality: Left Type of Debridement: Excisional debridement Anesthesia Used: 4% Lidocaine Solution, 5% Lidocaine Gel and Cetacaine Depth: Down to and including healthy tissue and in the subcutaneous layer Percentage of wound debrided: 100 Instrument Used: 5mm curette Tissue Removed: Yellow slough, devitalized tissue Severity: Fat Layer Exposed Amount of bleeding with debridement: Mild Bleeding Controlled with: Compression and gauze Patient tolerated procedure: Patient tolerated procedure well Post-Debridement Measurements and Additional Note: Post-Debridement Measurements/Treatment DASH - Nurse 1 - General Ulcer Assessment Start: 09/12/22 08:26 Freq: Status: Active Protocol: CHING Activity Type Activity Date Activity User E-sign Co-sign Detail Recorded Client Recorded Date Recorded By Document 09/12/22 08:27 MT [id number] 09/12/22 08:41 MT Document 09/19/22 08:28 RB [id number] 09/19/22 08:35 RB Document 09/26/22 08:51 RB [id number] 09/26/22 08:53 RB Edit Result 09/26/22 08:51 RB (1) [id number] 09/26/22 08:55 RB (1) Respiratory Rate (12-18) 18 => 20 H O2 L/MIN (L/min) => 2 09/12/22 09/19/22 09/26/22 08:27 08:28 08:51 WC - Today's Visit Information Type of service Follow-up Visit Follow-up Visit Follow-up Visit (Physician/REFINERY OPERATOR HELPER (Physician/REFINERY OPERATOR HELPER (Physician/REFINERY OPERATOR HELPER ) ) ) Arrival Mode Ambulatory, Ambulatory Ambulatory, Wheelchair Walker Transfer Assistance None None Accompanied by daughter Patient Identification Verified (Name & No Yes Yes ) Patient Requires Transmission-Based No No Precautions Safety Precautions Fall Prevention Height and Weight Body Mass Index (BMI) 34.7 34.7 34.7 BMI Classification Obese Obese Obese Vital Signs Temperature (97.8 F-99.1 F) 97 F L 97.8 F 97.8 F Temperature Source Temporal Temporal Temporal Pulse Rate (60-100) 58 L 96 72 Pulse Location Monitor Monitor Monitor Respiratory Rate (12-18) 18 18 20 H Respiratory rate source Observation Observation Observation Oxygen Delivery Method Room Air O2 L/MIN (L/min) 2 Blood Pressure (90/60-120/80) 124/65 H 148/97 H 150/70 H Blood Pressure Mean (mm Hg) 84 114 96 Source Monitor Monitor Monitor Position Sitting Semi-Fowlers Semi-Fowlers Blood Pressure Location Right Arm Left Arm Left Arm History Since Last Visit- (Skip if this is Patient's initial visit) Have you changed medications since your No No last visit? Any new allergies or adverse reactions No No Had a fall/change in ADL's that may No No increase risk of falls Signs or symptoms of abuse and/or No No neglect since last visit Have you been in the hospital since your No No last visit? Has dressing in place as prescribed Yes Yes Yes Has compression in place as prescribed N/A Yes Yes Has offloadiing in place as prescribed N/A No No Experienced any changes in pain level or No No No management Left Footwear Regular Shoe Right Footwear Regular Shoe Pain Scale: 0-10 Numeric Is Patient Pain Free? Yes Yes Yes WC - Nurse 1 - General Ulcer Measurement Start: 09/12/22 08:26 Freq: Status: Active Protocol: Activity Type Activity Date Activity User E-sign Co-sign Detail Recorded Client Recorded Date Recorded By Document 09/12/22 08:27 MT [id number] 09/12/22 08:41 MT Document 09/19/22 08:28 RB [id number] 09/19/22 08:35 RB Document 09/26/22 08:51 RB [id number] 09/26/22 08:53 RB 09/12/22 09/19/22 09/26/22 08:27 08:28 08:51 Wound Center Nurse 1 #3 L POST LE -Combined with other wound No -Current Size (cm) - Length 2.4 0.1 -Current Size (cm) - Width 0.6 0.1 -Current Size (cm) - Depth 0.1 0.1 -Total Square Cm 1.44 0.01 -Photo Taken Yes -Tunneling No -Undermining/Tunneling No -Circular Undermining No -Exudate Amt Small -Exudate Type Serosanguineous -Wound Margin Distinct, Outline Attached -Granulation Amt Medium (34-66%) -Granulation Quality [place] -Slough/Fibrin Yes -Necrosis Amt Medium (34-66%) -Necrotic Tissue Type Adherent Slough -Structure Exposed N/A -Texture (Leticia-wound Skin Appearance) Assessed, Scarring -Moisture (Leticia-wound Skin Appearance) Assessed -Color (Leticia-wound Skin Appearance) Assessed -Temperature (Leticia-wound Skin No Abnormality Appearance) (Pt Warm) -Tenderness on Palpation (Leticia-wound No Skin Appearance) -Ulcer Cleansing Wound Cleanser -Foul Odor after Cleansing No -Anesthetic Used 5% Lidocaine Gel #2 R POST LE -Combined with other wound No No -Current Size (cm) - Length 2.8 2.2 2.2 -Current Size (cm) - Width 4.0 3.9 3.5 -Current Size (cm) - Depth 0.1 0.2 0.1 -Total Square Cm 11.20 8.58 7.70 -Photo Taken Yes Yes -Tunneling No No -Undermining/Tunneling No No -Circular Undermining No No -Exudate Amt None Present Large Medium -Exudate Type Serosanguineous Serosanguineous -Wound Margin Flat & Intact Distinct, Distinct, Outline Outline Attached Attached -Granulation Amt Medium (34-66%) Medium (34-66%) -Granulation Quality [place] -Slough/Fibrin Yes Yes -Necrosis Amt Large (67-100%) Medium (34-66%) Medium (34-66%) -Necrotic Tissue Type Adherent Slough Adherent Slough Adherent Slough -Structure Exposed N/A N/A -Texture (Leticia-wound Skin Appearance) Assessed Assessed, Assessed, Scarring Scarring -Moisture (Leticia-wound Skin Appearance) Assessed Assessed Assessed -Color (Leticia-wound Skin Appearance) Assessed Assessed Assessed -Temperature (Leticia-wound Skin No Abnormality No Abnormality No Abnormality Appearance) (Pt Warm) (Pt Warm) (Pt Warm) -Tenderness on Palpation (Leticia-wound No No No Skin Appearance) -Ulcer Cleansing Rinsed/ Wound Cleanser Wound Cleanser Irrigated with Saline -Foul Odor after Cleansing No Yes, Due to No Product Use -Anesthetic Used 4% Lidocaine 5% Lidocaine 5% Lidocaine Solution Gel Gel Lower Limb Edema Present Yes Yes Right Calf (cm) 39.6 38 39.5 Right Ankle (cm) 23 22.4 22.7 Left Calf (cm) 38.6 40 40 Left Ankle (cm) 22.7 22.8 22.2 WC - Nurse 2 - General Ulcer CM Notes Start: 09/12/22 08:26 Freq: Status: Active Protocol: Activity Type Activity Date Activity User E-sign Co-sign Detail Recorded Client Recorded Date Recorded By Document 09/12/22 08:45 MW Desktop 09/12/22 09:19 MW Document 09/19/22 09:18 MW [id number] 09/19/22 09:33 MW Document 09/26/22 09:01 MW [id number] 09/26/22 09:17 MW 09/12/22 09/19/22 09/26/22 08:45 09:18 09:01 Wound Center Nurse 2 #3 L POST LE -Time 08:45 09:18 -Correct Patient Yes Yes -Correct Side, Site, Position Yes Yes -Correct Procedure Yes Yes -Procedure Performed Yes No -Type of Procedure Debridement -Clinical Debridement Subcutaneous -Tissue Removed Subcutaneous -Post Debridement (cm) - Length 0.2 -Post Debridement (cm) - Width 0.2 -Post Debridement (cm) - Depth 0.1 -Total Square (Post) (cm) 0.04 -Area of Debridement (cm) - Length 0.2 -Area of Debridement (cm) - Width 0.2 -Total Square (Area) (cm) 0.04 -Tunneling No No -Undermining/Tunneling No No -Circular Undermining No No -Wound/Ulcer Outcome Not Healed Healed- Epithelialized -Ulcer Cleansing Rinsed/ Irrigated with Saline -Foul Odor after Cleansing No -Bioengineered Tissue No -Bleeding Controlled with Pressure -Treatment Response Procedure Tolerated Well -Offloading No -Debridement - Subq, 1st 20sq cm Yes #2 R POST LE -Time 08:45 09:19 09:05 -Correct Patient Yes Yes Yes -Correct Side, Site, Position Yes Yes Yes -Correct Procedure Yes Yes Yes -Procedure Performed Yes Yes Yes -Type of Procedure Debridement Debridement Debridement -Clinical Debridement Subcutaneous Subcutaneous Subcutaneous -Tissue Removed Subcutaneous Subcutaneous Subcutaneous -Post Debridement (cm) - Length 2.4 2.5 2.3 -Post Debridement (cm) - Width 4.0 4.0 3.7 -Post Debridement (cm) - Depth 0.1 1 0.1 -Total Square (Post) (cm) 9.60 10.00 8.51 -Area of Debridement (cm) - Length 2.4 2.5 2.3 -Area of Debridement (cm) - Width 4.0 4.0 3.7 -Total Square (Area) (cm) 9.60 10.00 8.51 -Tunneling No No No -Undermining/Tunneling No No No -Circular Undermining No No No -Wound/Ulcer Outcome Not Healed Not Healed Not Healed -Ulcer Cleansing Rinsed/ Rinsed/ Rinsed/ Irrigated with Irrigated with Irrigated with Saline Saline Saline -Foul Odor after Cleansing No No No -Bioengineered Tissue Yes Yes Yes -Type of Bioengineered Tissue Epifix Mesh Epifix Mesh Epifix Mesh -Expiration Date 05/08/27 05/08/27 05/08/27 -Product Lot Number [id number] -Percent Used 100 100 100 -Lot number of Saline Used [id number] -Bleeding Controlled with Pressure Pressure Pressure -Treatment Response Procedure Procedure Procedure Tolerated Well Tolerated Well Tolerated Well -Offloading No No No -Debridement - Subq, 1st 20sq cm No No No -Apply Skin Sub - 1st 25 sq cm - Legs 1 1 1 -Epifix Mesh (per sq cm) 11 11 11 Pain Scale: 0-10 Numeric Is Patient Pain Free? Yes Yes Yes WC - Nurse 3 - General Ulcer D/C NN Start: 09/12/22 08:26 Freq: Status: Active Protocol: Activity Type Activity Date Activity User E-sign Co-sign Detail Recorded Client Recorded Date Recorded By Document 09/12/22 09:20 MW Desktop 09/12/22 09:24 MW Document 09/19/22 09:39 RB [id number] 09/19/22 09:40 RB Document 09/26/22 09:27 RB [id number] 09/26/22 09:28 RB 09/12/22 09/19/22 09/26/22 09:20 09:39 09:27 Wound Care Center Nurse 3 #3 L POST LE -Ulcer Cleansing Rinsed/ Irrigated with Saline -Foul Odor after Cleansing No -Negative Pressure Wound Therapy N/A -Primary Dressing Applied Mepilex Border -Other Dressing C.HYDROGEL -Mepilex Border 1 #2 R POST LE -Ulcer Cleansing Not Cleansed -Foul Odor after Cleansing No -Negative Pressure Wound Therapy N/A -Other Dressing abd abd -Primary Dressing Covered/Secured with Dry Gauze & Dry Gauze,Dry Dry Gauze & Roll Gauze, Gauze & Roll Roll Gauze, Secured with Gauze,Secured Secured with Tape with Tape Tape -Other Covering ABD PAD Right -Lotion applied to leg before No compression wrap -Stockings Yes -Other circaid circaid Left -Lotion applied to leg before No compression wrap -Stockings Yes -Other circaid circaid Treatment Response Procedure Procedure Procedure Tolerated Well Tolerated Well Tolerated Well Pain Scale: 0-10 Numeric Is Patient Pain Free? Yes Yes Yes Teaching: Wound Center Dressing Your Wound -Person Taught Patient -Teaching Method Discussion -Response to teaching Verbalize understanding WC - Visit Discharge Discharge Condition Stable Stable Stable Ambulatory Status Ambulatory, Ambulatory, Ambulatory, Walker Walker Walker Transportation Private Auto Private Auto Private Auto Accompanied by DAUGHTER Medication Reconcilliation completed & No No No provided to patient/care provider Clinical Summary of Care Provided Yes Yes Yes Assessment/Plan Assessment/Plan (1) Venous stasis ulcer of left lower leg with edema of left lower leg: CODE(S): I83.029 - Varicose veins of left lower extremity with ulcer of unspecified site; I83.892 - Varicose veins of left lower extremity with other complications; L97.929 - Non-pressure chronic ulcer of unspecified part of left lower leg with unspecified severity; R60.9 - Edema, unspecified (2) Diabetes mellitus: CODE(S): E11.9 - Type 2 diabetes mellitus without complications QUALIFIERS: Diabetes mellitus type: type 2 Diabetes mellitus fdc insulin use: without fpc use Diabetes mellitus complication status: with neurologic complications Diabetes mellitus complication detail: with polyneuropathy Qualified Code(s): E11.42 - Type 2 diabetes mellitus with diabetic polyneuropathy (3) Chronic obstructive pulmonary disease: CODE(S): J44.9 - Chronic obstructive pulmonary disease, unspecified QUALIFIERS: COPD type: unspecified COPD Qualified Code(s): J44.9 - Chronic obstructive pulmonary disease, unspecified (4) Hypertension: CODE(S): I10 - Essential (primary) hypertension QUALIFIERS: Hypertension type: primary hypertension Qualified Code(s): I10 - Essential (primary) hypertension (5) 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: CODE(S): I83.019 - Varicose veins of right lower extremity with ulcer of unspecified site; L97.919 - Non-pressure chronic ulcer of unspecified part of right lower leg with unspecified severity (6) Nonhealing ulcer of left lower extremity with fat layer exposed: CODE(S): L97.922 - Non-pressure chronic ulcer of unspecified part of left lower leg with fat layer exposed (7) Nonhealing ulcer of right lower extremity with fat layer exposed: CODE(S): L97.912 - Non-pressure chronic ulcer of unspecified part of rightlower leg with fat layer exposed (8) Supplemental oxygen dependent: CODE(S): Z99.81 - Dependence on supplemental oxygen PLAN: Plan Debridement performed today in clinic as annotated above. At home wound-care instructions: Epifix #7 applied to her right posterior LE ulcer today per operations architect guidelines using 100% of product, rehydrated with hydrogel and covered with adaptic touch and secured with steristrips. She will not change the dressing on this for 1 week unless there is drainage and then would change gauze dressing. Reapply hydrogel daily. Off-loading: The patient was instructed to avoid pressure and friction on the affected areas. Reposition every 2 hours at minimum. Avoid prolonged standing and/or dangling of legs. When seated, feet should be elevated at chest level. Frequent ambulation is encouraged. Diet: Patient encouraged to increase protein intake while taking caution to avoid high carbohydrate and/or sugar intake. Labs/cultures/imaging: Vascular testing ordered to evaluate for arterial and venous disease showed incompetence of accessory saphenous veins b/l and normal arterial studies except decreased at level of great toe. Follow-up: Return in 1 week for wound care follow up. Return sooner or report tothe emergency room should symptoms worsen, or new symptoms arise. Note: [employer] speech recognition auto motor mechanic software was used to create portions of this document. Sound-alike and misspelled words, as well as other auto motor mechanic errors may be contained in the documentation. 09/26/22 0946 <Electronically signed by Nisha Magallon DO> Cosigner Signature (if applicable): CC: ~ Signed [facility] Work Phone: [phone] Magallon [facility] September 19, 2022 2:59pm Note Date/Time September 19, 2022 2:3 9pm [facility] [address] [place] [id number] Progress Note - Wound Care 09/19/22 1436 MR#: [id number] Acct: [id number] Name: KANDI CORREIA Rep #:[id number] : 1945 77 From: Nisha Magallon DO PCP: Dr. Jalyn Smith MD Status:REG R CR Location: History of Present Illness Date of Service: 09/19/22 Chief Complaint: Venous leg ulcer left lower extremity and right lower extremity History of Wound: This is a 76-year-old white female who presents to the wound healing center today with complaint of nonhealing ulceration of her right and left lower extremities. She has a past medical history significant for chronic hypoxia on supplemental O2, COPD, type 2 diabetes mellitus, CHF, and osteoarthritis of the bilateral knees and GERD. The patient states that her wounds initially occurred after scratching the back of her leg on something almost a month ago. She saw her PCP last week and was started on Cephalexin QID x 10 days. She was 2 days left of treatment. She has not had any improvement in her pain or ulcers since starting the antibiotic. Shehas been applying triple antibiotic ointment covering with gauze for the last few days but had been using hydrogel and nonadherent dressings prior to that. She states that she has not been utilizing any compression due to pain but has been elevating her legs more frequently and using a wedge pillow. She denies any systemic or localized signs of infection at this time. Denies any prior cultures being taken. 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 Subjective Subjective Kandi tolerated Epifix treatment well. She is healed today on her right . Deniesfever, chills, increased drainage, increased pain or increased erythema. Objective Data Objective Data Vital Signs: Vital Signs Temp Pulse Resp BP O2 Del Method O2 Flow Rate 97.8 F 96 18 148/97 H Room Air 2 09/19/22 08:28 09/19/22 08:28 09/19/22 08:28 09/19/22 08:28 09/12/22 08:27 09/06/22 01:59 Oxygen Flow Rate (L/min) 2 Oxygen Delivery Method Room Air Weight: 91.777 kg Body Mass Index (BMI) 34.7 Physical Exam Const alert, oriented x3 and no apparent distress General Appearance: cooperative and comfortable HEENT normocephalic and head/scalp atraumatic Resp normal respiratory effort Effort and Inspection: able to speak in complete sentences Cardio regular rate and regular rhythm Skin Wounds: wounds noted Wound Narrative: as in clinical panel Psych mental status grossly normal, thought process normal, cooperative and affect normal Debridement Note Debridement Note Wound debrided: right posterior LE Laterality: Right Type of Debridement: Excisional debridement Anesthesia Used: 4% Lidocaine Solution, 5% Lidocaine Gel and Cetacaine Depth: Down to and including healthy tissue and in the subcutaneous layer Percentage of wound debrided: 100 Instrument Used: 5mm curette Tissue Removed: Yellow slough, devitalized tissue Severity: Fat Layer Exposed Amount of bleeding with debridement: Mild Bleeding Controlled with: Compression and gauze Patient tolerated procedure: Patient tolerated procedure well Post-Debridement Measurements and Additional Note: Post-Debridement Measurements/Treatment - Nurse 1 - General Ulcer Assessment Start: 09/12/22 08:26 Freq: Status: Active Protocol: DASH.[employer] Activity Type Activity Date Activity User E-sign Co-sign Detail Recorded Client Recorded Date Recorded By Document 09/12/22 08:27 MT [id number] 09/12/22 08:41 MT Document 09/19/22 08:28 RB [id number] 09/19/22 08:35 RB 09/12/22 09/19/22 08:27 08:28 - Today's Visit Information Type of service Follow-up Visit Follow-up Visit (Physician/REFINERY OPERATOR HELPER (Physician/REFINERY OPERATOR HELPER ) ) Arrival Mode Ambulatory, Ambulatory Wheelchair Transfer Assistance None Accompanied by daughter Patient Identification Verified (Name & No Yes ) Patient Requires Transmission-Based No Precautions Safety Precautions Fall Prevention Height and Weight Body Mass Index (BMI) 34.7 34.7 BMI Classification Obese Obese Vital Signs Temperature (97.8 F-99.1 F) 97 F L 97.8 F Temperature Source Temporal Temporal Pulse Rate (60-100) 58 L 96 Pulse Location Monitor Monitor Respiratory Rate (12-18) 18 18 Respiratory rate source Observation Observation Oxygen Delivery Method Room Air Blood Pressure (90/60-120/80) 124/65 H 148/97 H Blood Pressure Mean (mm Hg) 84 114 Source Monitor Monitor Position Sitting Semi-Fowlers Blood Pressure Location Right Arm Left Arm History Since Last Visit- (Skip if this is Patient's initial visit) Have you changed medications since your No last visit? Any new allergies or adverse reactions No Had a fall/change in ADL's that may No increase risk of falls Signs or symptoms of abuse and/or No neglect since last visit Have you been in the hospital since your No last visit? Has dressing in place as prescribed Yes Yes Has compression in place as prescribed N/A Yes Has offloadiing in place as prescribed N/A No Experienced any changes in pain level or No No management Left Footwear Regular Shoe Right Footwear Regular Shoe Pain Scale: 0-10 Numeric Is Patient Pain Free? Yes Yes WC - Nurse 1 - General Ulcer Measurement Start: 09/12/22 08:26 Freq: Status: Active Protocol: Activity Type Activity Date Activity User E-sign Co-sign Detail Recorded Client Recorded Date Recorded By Document 09/12/22 08:27 MT [id number] 09/12/22 08:41 MT Document 09/19/22 08:28 RB [id number] 09/19/22 08:35 RB 09/12/22 09/19/22 08:27 08:28 Wound Center Nurse 1 #3 L POST LE -Combined with other wound No -Current Size (cm) - Length 2.4 0.1 -Current Size (cm) - Width 0.6 0.1 -Current Size (cm) - Depth 0.1 0.1 -Total Square Cm 1.44 0.01 -Photo Taken Yes -Tunneling No -Undermining/Tunneling No -Circular Undermining No -Exudate Amt Small -Exudate Type Serosanguineous -Wound Margin Distinct, Outline Attached -Granulation Amt Medium (34-66%) -Granulation Quality [place] -Slough/Fibrin Yes -Necrosis Amt Medium (34-66%) -Necrotic Tissue Type Adherent Slough -Structure Exposed N/A -Texture (Leticia-wound Skin Appearance) Assessed, Scarring -Moisture (Leticia-wound Skin Appearance) Assessed -Color (Leticia-wound Skin Appearance) Assessed -Temperature (Leticia-wound Skin No Abnormality Appearance) (Pt Warm) -Tenderness on Palpation (Leticia-wound No Skin Appearance) -Ulcer Cleansing Wound Cleanser -Foul Odor after Cleansing No -Anesthetic Used 5% Lidocaine Gel #2 R POST LE -Combined with other wound No -Current Size (cm) - Length 2.8 2.2 -Current Size (cm) - Width 4.0 3.9 -Current Size (cm) - Depth 0.1 0.2 -Total Square Cm 11.20 8.58 -Photo Taken Yes -Tunneling No -Undermining/Tunneling No -Circular Undermining No -Exudate Amt None Present Large -Exudate Type Serosanguineous -Wound Margin Flat & Intact Distinct, Outline Attached -Granulation Amt Medium (34-66%) -Granulation Quality [place] -Slough/Fibrin Yes -Necrosis Amt Large (67-100%) Medium (34-66%) -Necrotic Tissue Type Adherent Slough Adherent Slough -Structure Exposed N/A -Texture (Leticia-wound Skin Appearance) Assessed Assessed, Scarring -Moisture (Leticia-wound Skin Appearance) Assessed Assessed -Color (Leticia-wound Skin Appearance) Assessed Assessed -Temperature (Leticia-wound Skin No Abnormality No Abnormality Appearance) (Pt Warm) (Pt Warm) -Tenderness on Palpation (Leticia-wound No No Skin Appearance) -Ulcer Cleansing Rinsed/ Wound Cleanser Irrigated with Saline -Foul Odor after Cleansing No Yes, Due to Product Use -Anesthetic Used 4% Lidocaine 5% Lidocaine Solution Gel Lower Limb Edema Present Yes Right Calf (cm) 39.6 38 Right Ankle (cm) 23 22.4 Left Calf (cm) 38.6 40 Left Ankle (cm) 22.7 22.8 WC - Nurse 2 - General Ulcer CM Notes Start: 09/12/22 08:26 Freq: Status: Active Protocol: Activity Type Activity Date Activity User E-sign Co-sign Detail Recorded Client Recorded Date Recorded By Document 09/12/22 08:45 MW Desktop 09/12/22 09:19 MW Document 09/19/22 09:18 MW [id number] 09/19/22 09:33 MW 09/12/22 09/19/22 08:45 09:18 Wound Center Nurse 2 #3 L POST LE -Time 08:45 09:18 -Correct Patient Yes Yes -Correct Side, Site, Position Yes Yes -Correct Procedure Yes Yes -Procedure Performed Yes No -Type of Procedure Debridement -Clinical Debridement Subcutaneous -Tissue Removed Subcutaneous -Post Debridement (cm) - Length 0.2 -Post Debridement (cm) - Width 0.2 -Post Debridement (cm) - Depth 0.1 -Total Square (Post) (cm) 0.04 -Area of Debridement (cm) - Length 0.2 -Area of Debridement (cm) - Width 0.2 -Total Square (Area) (cm) 0.04 -Tunneling No No -Undermining/Tunneling No No -Circular Undermining No No -Wound/Ulcer Outcome Not Healed Healed- Epithelialized -Ulcer Cleansing Rinsed/ Irrigated with Saline -Foul Odor after Cleansing No -Bioengineered Tissue No -Bleeding Controlled with Pressure -Treatment Response Procedure Tolerated Well -Offloading No -Debridement - Subq, 1st 20sq cm Yes #2 R POST LE -Time 08:45 09:19 -Correct Patient Yes Yes -Correct Side, Site, Position Yes Yes -Correct Procedure Yes Yes -Procedure Performed Yes Yes -Type of Procedure Debridement Debridement -Clinical Debridement Subcutaneous Subcutaneous -Tissue Removed Subcutaneous Subcutaneous -Post Debridement (cm) - Length 2.4 2.5 -Post Debridement (cm) - Width 4.0 4.0 -Post Debridement (cm) - Depth 0.1 1 -Total Square (Post) (cm) 9.60 10.00 -Area of Debridement (cm) - Length 2.4 2.5 -Area of Debridement (cm) - Width 4.0 4.0 -Total Square (Area) (cm) 9.60 10.00 -Tunneling No No -Undermining/Tunneling No No -Circular Undermining No No -Wound/Ulcer Outcome Not Healed Not Healed -Ulcer Cleansing Rinsed/ Rinsed/ Irrigated with Irrigated with Saline Saline -Foul Odor after Cleansing No No -Bioengineered Tissue Yes Yes -Type of Bioengineered Tissue Epifix Mesh Epifix Mesh -Expiration Date 05/08/27 05/08/27 -Product Lot Number [id number] -Percent Used 100 100 -Lot number of Saline Used [id number] -Bleeding Controlled with Pressure Pressure -Treatment Response Procedure Procedure Tolerated Well Tolerated Well -Offloading No No -Debridement - Subq, 1st 20sq cm No No -Apply Skin Sub - 1st 25 sq cm - Legs 1 1 -Epifix Mesh (per sq cm) 11 11 Pain Scale: 0-10 Numeric Is Patient Pain Free? Yes Yes WC - Nurse 3 - General Ulcer D/C NN Start: 09/12/22 08:26 Freq: Status: Active Protocol: Activity Type Activity Date Activity User E-sign Co-sign Detail Recorded Client Recorded Date Recorded By Document 09/12/22 09:20 MW Desktop 09/12/22 09:24 MW Document 09/19/22 09:39 RB [id number] 09/19/22 09:40 RB 09/12/22 09/19/22 09:20 09:39 Wound Care Center Nurse 3 #3 L POST LE -Ulcer Cleansing Rinsed/ Irrigated with Saline -Foul Odor after Cleansing No -Negative Pressure Wound Therapy N/A -Primary Dressing Applied Mepilex Border -Other Dressing C.HYDROGEL -Mepilex Border 1 #2 R POST LE -Ulcer Cleansing Not Cleansed -Foul Odor after Cleansing No -Negative Pressure Wound Therapy N/A -Other Dressing abd -Primary Dressing Covered/Secured with Dry Gauze & Dry Gauze,Dry Roll Gauze, Gauze & Roll Secured with Gauze,Secured Tape with Tape -Other Covering ABD PAD Right -Lotion applied to leg before No compression wrap -Stockings Yes -Other circaid Left -Lotion applied to leg before No compression wrap -Stockings Yes -Other circaid Treatment Response Procedure Procedure Tolerated Well Tolerated Well Pain Scale: 0-10 Numeric Is Patient Pain Free? Yes Yes Teaching: Wound Center Dressing Your Wound -Person Taught Patient -Teaching Method Discussion -Response to teaching Verbalize understanding WC - Visit Discharge Discharge Condition Stable Stable Ambulatory Status Ambulatory, Ambulatory, Walker Walker Transportation Private Auto Private Auto Accompanied by DAUGHTER Medication Reconcilliation completed & No No provided to patient/care provider Clinical Summary of Care Provided Yes Yes Additional Wound Wound debrided: left posterior LE Type of Debridement: Excisional debridement Anesthesia Used: 4% Lidocaine Solution, 5% Lidocaine Gel and Cetacaine Depth: Down to and including healthy tissue and in the subcutaneous layer Percentage of wound debrided: 100 Instrument Used: 5mm curette Tissue Removed: Yellow slough, devitalized tissue Severity: Fat Layer Exposed Amount of bleeding with debridement: Mild Bleeding Controlled with: Compression and gauze Patient tolerated procedure: Patient tolerated procedure well Assessment/Plan Assessment/Plan (1) Venous stasis ulcer of left lower leg with edema of left lower leg: CODE(S): I83.029 - Varicose veins of left lower extremity with ulcer of unspecified site; I83.892 - Varicose veins of left lower extremity with other complications; L97.929 - Non-pressure chronic ulcer of unspecified part of left lower leg with unspecified severity; R60.9 - Edema, unspecified (2) Diabetes mellitus: CODE(S): E11.9 - Type 2 diabetes mellitus without complications QUALIFIERS: Diabetes mellitus type: type 2 Diabetes mellitus fdc insulin use: without long term care administrator use Diabetes mellitus complication status: with neurologic complications Diabetes mellitus complication detail: with polyneuropathy Qualified Code(s): E11.42 - Type 2 diabetes mellitus with diabetic polyneuropathy (3) Chronic obstructive pulmonary disease: CODE(S): J44.9 - Chronic obstructive pulmonary disease, unspecified QUALIFIERS: COPD type: unspecified COPD Qualified Code(s): J44.9 - Chronic obstructive pulmonary disease, unspecified (4) Hypertension: CODE(S): I10 - Essential (primary) hypertension QUALIFIERS: Hypertension type: primary hypertension Qualified Code(s): I10 - Essential (primary) hypertension (5) 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: CODE(S): I83.019 - Varicose veins of right lower extremity with ulcer of unspecified site; L97.919 - Non-pressure chronic ulcer of unspecified part of right lower leg with unspecified severity (6) Nonhealing ulcer of left lower extremity with fat layer exposed: CODE(S): L97.922 - Non-pressure chronic ulcer of unspecified part of left lower leg with fat layer exposed (7) Nonhealing ulcer of right lower extremity with fat layer exposed: CODE(S): L97.912 - Non-pressure chronic ulcer of unspecified part of rightlower leg with fat layer exposed (8) Supplemental oxygen dependent: CODE(S): Z99.81 - Dependence on supplemental oxygen PLAN: Plan Debridement performed today in clinic as annotated above. At home wound-care instructions: Epifix #6 applied to her right posterior LE ulcer today per operations architect guidelines using 100% of product, rehydrated with hydrogel and covered with adaptic touch and secured with steristrips. She will not change the dressing on this for 1 week unless there is drainage and then would change gauze dressing. Reapply hydrogel Thu and . Off-loading: The patient was instructed to avoid pressure and friction on the affected areas. Reposition every 2 hours at minimum. Avoid prolonged standing and/or dangling of legs. When seated, feet should be elevated at chest level. Frequent ambulation is encouraged. Diet: Patient encouraged to increase protein intake while taking caution to avoid high carbohydrate and/or sugar intake. Labs/cultures/imaging: Vascular testing ordered to evaluate for arterial and venous disease showed incompetence of accessory saphenous veins b/l and normal arterial studies except decreased at level of great toe. Follow-up: Return in 1 week for wound care follow up. Return sooner or report tothe emergency room should symptoms worsen, or new symptoms arise. Note: [employer] speech recognition auto motor mechanic software was used to create portions of this document. Sound-alike and misspelled words, as well as other auto motor mechanic errors may be contained in the documentation. 09/19/22 6260 <Electronically signed by Nisha Magallon DO> Cosigner Signature (if applicable): CC: ~ Signed [facility] Work Phone: [phone] Miscellaneous Notes* Telephone Encounter - Amol Sinha RN - 09/19/2022 1:48 PM EDT [facility] Provider Action/FYI:Pt stated she has an appt with [facility] and don't know if her insurance will cover her. Informed pt to call her insurance company or call [facility] to see if they take her insurance. Pt stated understanding. Poonam, you've reached [facility], my name is Amol Sinha RN, I'm a registered nurse, and we are on a recorded line. Patient identified by name and date of Spoke with patient Verify that the patient is a [facility] patient: Yes Are you having any symptoms today? No - What is the reason for call? General Questions/Other Need Call Disposition: Managed by [facility] RN Thank you for calling [facility]. If you develop any new symptoms, your condition worsens, then GO TO THE EMERGENCY ROOM OR CALL 911. If you have any questions, please call us back. [facility] Magallon [facility] September 12, 2022 2:08pm Note Date/Time September 12, 2022 2:08 pm [facility] [address] [place] [address] [place] [address] Progress Note - Wound Care 09/12/22 1406 MR#: [id number] Acct: [id number] Name: KANDI CORREIA Rep #:[id number] : 1945 77 From: Nisha Magallon DO PCP: Dr. Jalyn Smith MD Status:REG R CR Location: History of Present Illness Date of Service: 09/12/22 Chief Complaint: Venous leg ulcer left lower extremity and right lower extremity History of Wound: This is a 76-year-old white female who presents to the wound healing center today with complaint of nonhealing ulceration of her right and left lower extremities. She has a past medical history significant for chronic hypoxia on supplemental O2, COPD, type 2 diabetes mellitus, CHF, and osteoarthritis of the bilateral knees and GERD. The patient states that her wounds initially occurred after scratching the back of her leg on something almost a month ago. She saw her PCP last week and was started on Cephalexin QID x 10 days. She was 2 days left of treatment. She has not had any improvement in her pain or ulcers since starting the antibiotic. Shehas been applying triple antibiotic ointment covering with gauze for the last few days but had been using hydrogel and nonadherent dressings prior to that. She states that she has not been utilizing any compression due to pain but has been elevating her legs more frequently and using a wedge pillow. She denies any systemic or localized signs of infection at this time. Denies any prior cultures being taken. 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 Subjective Subjective Kandi tolerated Epifix treatment well. She is healed today. Denies fever, chills, increased drainage, increased pain or increased erythema. Objective Data Objective Data Vital Signs: Vital Signs Temp Pulse Resp BP O2 Del Method O2 Flow Rate 97 F L 58 L 18 124/65 H Room Air 2 09/12/22 08:27 09/12/22 08:27 09/12/22 08:27 09/12/22 08:27 09/12/22 08:27 09/06/22 01:59 Oxygen Flow Rate (L/min) 2 Oxygen Delivery Method Room Air Weight: 91.777 kg Body Mass Index (BMI) 34.7 Physical Exam Const alert, oriented x3 and no apparent distress General Appearance: cooperative and comfortable HEENT normocephalic and head/scalp atraumatic Resp normal respiratory effort Effort and Inspection: able to speak in complete sentences Cardio regular rate and regular rhythm Skin Wounds: wounds noted Wound Narrative: as in clinical panel Psych mental status grossly normal, thought process normal, cooperative and affect normal Debridement Note Debridement Note Wound debrided: right posterior LE Laterality: Right Type of Debridement: Excisional debridement Anesthesia Used: 4% Lidocaine Solution, 5% Lidocaine Gel and Cetacaine Depth: Down to and including healthy tissue and in the subcutaneous layer Percentage of wound debrided: 100 Instrument Used: 5mm curette Tissue Removed: Yellow slough, devitalized tissue Severity: Fat Layer Exposed Amount of bleeding with debridement: Mild Bleeding Controlled with: Compression and gauze Patient tolerated procedure: Patient tolerated procedure well Post-Debridement Measurements and Additional Note: Post-Debridement Measurements/Treatment - Nurse 1 - General Ulcer Assessment Start: 09/12/22 08:26 Freq: Status: Active Protocol: CHING Activity Type Activity Date Activity User E-sign Co-sign Detail Recorded Client Recorded Date Recorded By Document 09/12/22 08:27 MS [id number] 09/12/22 08:41 MT 09/12/22 08:27 - Today's Visit Information Type of service Follow-up Visit (Physician/REFINERY OPERATOR HELPER ) Arrival Mode Ambulatory, Wheelchair Accompanied by daughter Patient Identification Verified (Name & No ) Safety Precautions Fall Prevention Height and Weight Body Mass Index (BMI) 34.7 BMI Classification Obese Vital Signs Temperature (97.8 F-99.1 F) 97 F L Temperature Source Temporal Pulse Rate (60-100) 58 L Pulse Location Monitor Respiratory Rate (12-18) 18 Respiratory rate source Observation Oxygen Delivery Method Room Air Blood Pressure (90/60-120/80) 124/65 H Blood Pressure Mean (mm Hg) 84 Source Monitor Position Sitting Blood Pressure Location Right Arm History Since Last Visit- (Skip if this is Patient's initial visit) Has dressing in place as prescribed Yes Has compression in place as prescribed N/A Has offloadiing in place as prescribed N/A Experienced any changes in pain level or No management Left Footwear Regular Shoe Right Footwear Regular Shoe Pain Scale: 0-10 Numeric Is Patient Pain Free? Yes - Nurse 1 - General Ulcer Measurement Start: 09/12/22 08:26 Freq: Status: Active Protocol: Activity Type Activity Date Activity User E-sign Co-sign Detail Recorded Client Recorded Date Recorded By Document 09/12/22 08:27 MS [id number] 09/12/22 08:41 MT 09/12/22 08:27 Wound Center Nurse 1 #3 L POST LE -Current Size (cm) - Length 2.4 -Current Size (cm) - Width 0.6 -Current Size (cm) - Depth 0.1 -Total Square Cm 1.44 #2 R POST LE -Current Size (cm) - Length 2.8 -Current Size (cm) - Width 4.0 -Current Size (cm) - Depth 0.1 -Total Square Cm 11.20 -Exudate Amt None Present -Wound Margin Flat & Intact -Necrosis Amt Large (67-100%) -Necrotic Tissue Type Adherent Slough -Texture (Leticia-wound Skin Appearance) Assessed -Moisture (Leticia-wound Skin Appearance) Assessed -Color (Leticia-wound Skin Appearance) Assessed -Temperature (Leticia-wound Skin No Abnormality Appearance) (Pt Warm) -Tenderness on Palpation (Leticia-wound No Skin Appearance) -Ulcer Cleansing Rinsed/ Irrigated with Saline -Foul Odor after Cleansing No -Anesthetic Used 4% Lidocaine Solution Right Calf (cm) 39.6 Right Ankle (cm) 23 Left Calf (cm) 38.6 Left Ankle (cm) 22.7 WC - Nurse 2 - General Ulcer CM Notes Start: 09/12/22 08:26 Freq: Status: Active Protocol: Activity Type Activity Date Activity User E-sign Co-sign Detail Recorded Client Recorded Date Recorded By Document 09/12/22 08:45 MW Desktop 09/12/22 09:19 MW 09/12/22 08:45 Wound Center Nurse 2 #3 L POST LE -Time 08:45 -Correct Patient Yes -Correct Side, Site, Position Yes -Correct Procedure Yes -Procedure Performed Yes -Type of Procedure Debridement -Clinical Debridement Subcutaneous -Tissue Removed Subcutaneous -Post Debridement (cm) - Length 0.2 -Post Debridement (cm) - Width 0.2 -Post Debridement (cm) - Depth 0.1 -Total Square (Post) (cm) 0.04 -Area of Debridement (cm) - Length 0.2 -Area of Debridement (cm) - Width 0.2 -Total Square (Area) (cm) 0.04 -Tunneling No -Undermining/Tunneling No -Circular Undermining No -Wound/Ulcer Outcome Not Healed -Ulcer Cleansing Rinsed/ Irrigated with Saline -Foul Odor after Cleansing No -Bioengineered Tissue No -Bleeding Controlled with Pressure -Treatment Response Procedure Tolerated Well -Offloading No -Debridement - Subq, 1st 20sq cm Yes #2 R POST LE -Time 08:45 -Correct Patient Yes -Correct Side, Site, Position Yes -Correct Procedure Yes -Procedure Performed Yes -Type of Procedure Debridement -Clinical Debridement Subcutaneous -Tissue Removed Subcutaneous -Post Debridement (cm) - Length 2.4 -Post Debridement (cm) - Width 4.0 -Post Debridement (cm) - Depth 0.1 -Total Square (Post) (cm) 9.60 -Area of Debridement (cm) - Length 2.4 -Area of Debridement (cm) - Width 4.0 -Total Square (Area) (cm) 9.60 -Tunneling No -Undermining/Tunneling No -Circular Undermining No -Wound/Ulcer Outcome Not Healed -Ulcer Cleansing Rinsed/ Irrigated with Saline -Foul Odor after Cleansing No -Bioengineered Tissue Yes -Type of Bioengineered Tissue Epifix Mesh -Expiration Date 05/08/27 -Product Lot Number [id number] -Percent Used 100 -Lot number of Saline Used [id number] -Bleeding Controlled with Pressure -Treatment Response Procedure Tolerated Well -Offloading No -Debridement - Subq, 1st 20sq cm No -Apply Skin Sub - 1st 25 sq cm - Legs 1 -Epifix Mesh (per sq cm) 11 Pain Scale: 0-10 Numeric Is Patient Pain Free? Yes WC - Nurse 3 - General Ulcer D/C NN Start: 09/12/22 08:26 Freq: Status: Active Protocol: Activity Type Activity Date Activity User E-sign Co-sign Detail Recorded Client Recorded Date Recorded By Document 09/12/22 09:20 MW Desktop 09/12/22 09:24 MW 09/12/22 09:20 Wound Care Center Nurse 3 #3 L POST LE -Ulcer Cleansing Rinsed/ Irrigated with Saline -Foul Odor after Cleansing No -Negative Pressure Wound Therapy N/A -Primary Dressing Applied Mepilex Border -Other Dressing C.HYDROGEL -Mepilex Border 1 #2 R POST LE -Ulcer Cleansing Not Cleansed -Foul Odor after Cleansing No -Negative Pressure Wound Therapy N/A -Primary Dressing Covered/Secured with Dry Gauze & Roll Gauze, Secured with Tape -Other Covering ABD PAD Right -Lotion applied to leg before No compression wrap -Stockings Yes Left -Lotion applied to leg before No compression wrap -Stockings Yes Treatment Response Procedure Tolerated Well Pain Scale: 0-10 Numeric Is Patient Pain Free? Yes Teaching: Wound Center Dressing Your Wound -Person Taught Patient -Teaching Method Discussion -Response to teaching Verbalize understanding WC - Visit Discharge Discharge Condition Stable Ambulatory Status Ambulatory, Walker Transportation Private Auto Accompanied by DAUGHTER Medication Reconcilliation completed & No provided to patient/care provider Clinical Summary of Care Provided Yes Additional Wound Wound debrided: left posterior LE Laterality: Left Type of Debridement: Excisional debridement Anesthesia Used: 4% Lidocaine Solution, 5% Lidocaine Gel and Cetacaine Depth: Down to and including healthy tissue and in the subcutaneous layer Percentage of wound debrided: 100 Instrument Used: 5mm curette Tissue Removed: Yellow slough, devitalized tissue Severity: Fat Layer Exposed Amount of bleeding with debridement: Mild Bleeding Controlled with: Compression and gauze Patient tolerated procedure: Patient tolerated procedure well Assessment/Plan Assessment/Plan (1) Venous stasis ulcer of left lower leg with edema of left lower leg: CODE(S): I83.029 - Varicose veins of left lower extremity with ulcer of unspecified site; I83.892 - Varicose veins of left lower extremity with other complications; L97.929 - Non-pressure chronic ulcer of unspecified part of left lower leg with unspecified severity; R60.9 - Edema, unspecified (2) Diabetes mellitus: CODE(S): E11.9 - Type 2 diabetes mellitus without complications QUALIFIERS: Diabetes mellitus type: type 2 Diabetes mellitus fdc insulin use: without long term care administrator use Diabetes mellitus complication status: with neurologic complications Diabetes mellitus complication detail: with polyneuropathy Qualified Code(s): E11.42 - Type 2 diabetes mellitus with diabetic polyneuropathy (3) Chronic obstructive pulmonary disease: CODE(S): J44.9 - Chronic obstructive pulmonary disease, unspecified QUALIFIERS: COPD type: unspecified COPD Qualified Code(s): J44.9 - Chronic obstructive pulmonary disease, unspecified (4) Hypertension: CODE(S): I10 - Essential (primary) hypertension QUALIFIERS: Hypertension type: primary hypertension Qualified Code(s): I10 - Essential (primary) hypertension (5) 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: CODE(S): I83.019 - Varicose veins of right lower extremity with ulcer of unspecified site; L97.919 - Non-pressure chronic ulcer of unspecified part of right lower leg with unspecified severity (6) Nonhealing ulcer of left lower extremity with fat layer exposed: CODE(S): L97.922 - Non-pressure chronic ulcer of unspecified part of left lower leg with fat layer exposed (7) Nonhealing ulcer of right lower extremity with fat layer exposed: CODE(S): L97.912 - Non-pressure chronic ulcer of unspecified part of rightlower leg with fat layer exposed (8) Supplemental oxygen dependent: CODE(S): Z99.81 - Dependence on supplemental oxygen PLAN: Plan Debridement performed today in clinic as annotated above. At home wound-care instructions: Epifix #5 applied to her right posterior LE ulcer today per operations architect guidelines using 100% of product, rehydrated with hydrogel and covered with adaptic touch and secured with steristrips. She will not change the dressing on this for 1 week unless there is drainage and then would change silicone foam dressing. Will have her apply hydrogel and adaptic toleft ulcer daily. She will cover with silicone bordered foam dressing. Keep dressing clean and dry. Off-loading: The patient was instructed to avoid pressure and friction on the affected areas. Reposition every 2 hours at minimum. Avoid prolonged standing and/or dangling of legs. When seated, feet should be elevated at chest level. Frequent ambulation is encouraged. Diet: Patient encouraged to increase protein intake while taking caution to avoid high carbohydrate and/or sugar intake. Labs/cultures/imaging: Vascular testing ordered to evaluate for arterial and venous disease showed incompetence of accessory saphenous veins b/l and normal arterial studies except decreased at level of great toe. Follow-up: Return in 1 week for wound care follow up. Return sooner or report tothe emergency room should symptoms worsen, or new symptoms arise. Note: [employer] speech recognition auto motor mechanic software was used to create portions of this document. Sound-alike and misspelled words, as well as other auto motor mechanic errors may be contained in the documentation. 04/07/23 1408 <Electronically signed by Nisha Magallon DO> Cosigner Signature (if applicable): CC: ~ Signed [facility] Work Phone: [phone]) 340-802004-06-2023 History of Present illness Narrative* Leslie Chapman MA - 09/11/2022 3:13 PM EDT POPULATION HEALTH NAVIGATION OUTREACH Action/FYI September 11, 2022 Patient needs a 6 month follow up- 01/14/2023 Outcome/Action Lm on [facility] letter sent Leslie Chapman MA Patient Identified by Name and : NO Outreach Outcome/Action Unable to reach patient: Left message [email or web address] message sent Did you use a PCP flex slot to schedule this appointment? N/A Reason for Outreach [facility] Payer: Payor: [employer] MEDICARE / Plan: [employer] MEDICARE PPO / Product Type: PPO / Care Gap Reviewed:: Follow-up appointment Reminder: Reminder note to check Health Maintenance for items below Health Maintenance items due: HEPATITIS C SCREENING Never done BP CONTROLLED (<130/80) Never done ALPHA-1 ANTITRYPSIN DEFICIENCY SCREENING Never done LUNG CANCER SCREENING Never done SHINGRIX VACCINE(1 of 2) Never done MAMMOGRAM due on 01/05/2020 ADVANCE DIRECTIVE DISCUSSION due on 06/08/2022 Navigation Signature: Leslie Chapman MA September 11, 2022 3:13 PM * Darlene Urbano RN - 09/11/2022 2:43 PM EDT INSIGHT CDM TELEPHONIC OUTREACH Provider Action/FYI: Dr Dayami Darby: I spoke with patient today and relayed the information from 09/01/22 telephone encounter (stated shedid not get the message). Patient would like assistance scheduling CT and follow up appointment with you in April. Please have your staff reach out to patient with further orders/instructions. Thank you, Erin Urbano RNaccess nurseAuto Motor Mechanic Community Monitoring PSS Pool: Please assist patient with scheduling a biannual appointment with Jalyn Smith MD or TALIA BABCOCK around 01/14/23 Thank you Patient going to external wound clinic for venous stasis ulcer. Reports chronic knee pain not relieved by injections. Contact made with patient: Yes Patient identified by name and . Discussed care with patient It s nice talking to you again. As a reminder, this is our bi-weekly check-in where I will be asking you questions about your health. This will only take a few minutes of your time. Is this a good time? Yes Symptoms What Chronic Disease(s) does the patient have: COPD Do you check your blood pressures at home? No Do you have new or worse shortness of breath with activity? No Do you have new or worsening cough? No Do you have new or worsening wheezing? No Do you need to use your rescue (Albuterol) inhaler or nebulizer more often than normal? No Are you having any other symptoms that your PCP needs to know about? No Symptoms: Symptom Escalation SAMMY Education Ordered -: No The patient required an escalation for symptom(s)? No Medications Do you have any questions about taking your medication or which medications you should be on? No Do you need any medication refills at this time, including any of the medications you might take only when needed? No Social We would like to make sure you have what you need so that your basic needs are met- including your personal safety, food, housing, transportation and medications? Would you like to speak with a social work steaming machine operator to help give you support for any of these needs? No It can be normal to feel anxious or down during a time like this. Would you like to talk to a mental health professional about how you have been feeling? No Closing Thank you for taking the time to talk with me today. We want to work with you to ensure that we arekeeping your medical condition(s) well-controlled and to keep you healthy and out of the doctor's office or hospital. It s also not too late for me to sign you up for automated weekly questionnaires through [employer]. This is an easy way for us to stay connected each week. Are you interested? No, I understand. We can always sign you up in the future if you change your mind. Just as a reminder, will continue to call you every other week to check in on your health. Our calls should take 10-15 minutes or less. Remember, if you have concerns in between our calls, please call your PCP's office right away. Thank you. Enter next patient outreach date for two weeks on the same day of the week as today in the Track PtOutreach and End outreach. documented in [facility] Magallon [facility] September 05, 2022 2:07pm Note Date/Time September 05, 2022 2:0 7pm [facility] [address] [place] [id number] Progress Note - Wound Care 09/05/22 1405 MR#: [id number] Acct: [id number] Name: KANDI CORREIA Rep #:[id number] : 1945 77 From: Nisha Magallon DO PCP: Dr. Jalyn Smith MD Status:REG R CR Location: History of Present Illness Date of Service: 09/05/22 Chief Complaint: Venous leg ulcer left lower extremity and right lower extremity History of Wound: This is a 76-year-old white female who presents to the wound healing center today with complaint of nonhealing ulceration of her right and left lower extremities. She has a past medical history significant for chronic hypoxia on supplemental O2, COPD, type 2 diabetes mellitus, CHF, and osteoarthritis of the bilateral knees and GERD. The patient states that her wounds initially occurred after scratching the back of her leg on something almost a month ago. She saw her PCP last week and was started on Cephalexin QID x 10 days. She was 2 days left of treatment. She has not had any improvement in her pain or ulcers since starting the antibiotic. Shehas been applying triple antibiotic ointment covering with gauze for the last few days but had been using hydrogel and nonadherent dressings prior to that. She states that she has not been utilizing any compression due to pain but has been elevating her legs more frequently and using a wedge pillow. She denies any systemic or localized signs of infection at this time. Denies any prior cultures being taken. 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 Progress of Wound: She tolerated treatment with Epifix to the right posterior calf. Left posterior calf also improved and tolerating treatment with Santyl. 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 Objective Data Objective Data Vital Signs: Vital Signs Temp Pulse Resp BP O2 Del Method O2 Flow Rate 97.2 F L 57 L 20 H 143/69 H Nasal Cannula 2 09/05/22 09:13 09/05/22 09:13 09/05/22 09:13 09/05/22 09:13 08/15/22 08:39 08/15/22 08:39 Oxygen Flow Rate (L/min) 2 Oxygen Delivery Method Nasal Cannula Weight: 91.777 kg Body Mass Index (BMI) 34.7 Physical Exam Const alert, oriented x3 and no apparent distress General Appearance: cooperative and comfortable HEENT normocephalic and head/scalp atraumatic Resp normal respiratory effort Effort and Inspection: able to speak in complete sentences Cardio regular rate and regular rhythm Skin Wounds: wounds noted Wound Narrative: as in clinical panel Psych mental status grossly normal, thought process normal, cooperative and affect normal Debridement Note Debridement Note Wound debrided: right posterior LE Laterality: Right Type of Debridement: Excisional debridement Anesthesia Used: 4% Lidocaine Solution, 5% Lidocaine Gel and Cetacaine Depth: Down to and including healthy tissue and in the subcutaneous layer Percentage of wound debrided: 100 Instrument Used: 5mm curette Tissue Removed: Yellow slough, devitalized tissue Severity: Fat Layer Exposed Amount of bleeding with debridement: Mild Bleeding Controlled with: Compression and gauze Patient tolerated procedure: Patient tolerated procedure well Post-Debridement Measurements and Additional Note: Post-Debridement Measurements/Treatment DASH - Nurse 1 - General Ulcer Assessment Start: 08/08/22 08:59 Freq: Status: Active Protocol: CHING Activity Type Activity Date Activity User E-sign Co-sign Detail Recorded Client Recorded Date Recorded By Document 08/08/22 08:59 DL [id number] 08/08/22 09:08 DL Document 08/15/22 08:39 BMF [id number] 03/10/23 08:45 BMF Document 08/22/22 09:04 DL [id number] 08/22/22 09:14 DL Document 08/29/22 08:27 RB Desktop 08/29/22 08:41 RB Document 09/05/22 09:13 RB [id number] 09/05/22 09:26 RB 08/08/22 08/15/22 08/22/22 08:59 08:39 09:04 WC - Today's Visit Information Type of service Follow-up Visit Follow-up Visit Follow-up Visit (Physician/REFINERY OPERATOR HELPER (Physician/REFINERY OPERATOR HELPER (Physician/REFINERY OPERATOR HELPER ) ) ) Arrival Mode Ambulatory, Ambulatory, Ambulatory, Walker Walker Walker Transfer Assistance None None None Accompanied by daughter Patient Identification Verified (Name & Yes Yes Yes ) Patient Requires Transmission-Based No No No Precautions Finger Stick Blood Sugar(mg/dl) (if didnt check indicated): Blood Sugar Stated by Patient Height and Weight Body Mass Index (BMI) 34.7 34.7 34.7 BMI Classification Obese Obese Obese Vital Signs Temperature (97.8 F-99.1 F) 98.1 F 96.8 F L 97.1 F L Temperature Source Temporal Temporal Temporal Pulse Rate (60-100) 67 60 78 Pulse Location Monitor Monitor Monitor Respiratory Rate (12-18) 22 H 18 20 H Respiratory rate source Observation Observation Observation Oxygen Delivery Method Nasal Cannula O2 L/MIN (L/min) 2 Blood Pressure (90/60-120/80) 155/84 H 168/79 H 150/80 H Blood Pressure Mean (mm Hg) 107 108 103 Source Monitor Monitor Monitor Position Sitting Blood Pressure Location Left Arm History Since Last Visit- (Skip if this is Patient's initial visit) Have you changed medications since your No No last visit? Any new allergies or adverse reactions No No No Had a fall/change in ADL's that may No No No increase risk of falls Signs or symptoms of abuse and/or No No No neglect since last visit Have you been in the hospital since your No No No last visit? Has dressing in place as prescribed No Yes Yes Has compression in place as prescribed Yes N/A Yes Has offloadiing in place as prescribed N/A N/A N/A Experienced any changes in pain level or No No management Left Footwear Regular Shoe Right Footwear Regular Shoe Pain Scale: 0-10 Numeric Is Patient Pain Free? Yes Yes Yes 08/29/22 09/05/22 08:27 09:13 WC - Today's Visit Information Type of service Follow-up Visit Follow-up Visit (Physician/REFINERY OPERATOR HELPER (Physician/REFINERY OPERATOR HELPER ) ) Arrival Mode Ambulatory, Ambulatory, Walker Walker Transfer Assistance None None Accompanied by Patient Identification Verified (Name & Yes Yes ) Patient Requires Transmission-Based No No Precautions Finger Stick Blood Sugar(mg/dl) (if 127 indicated): Blood Sugar Stated by Patient Height and Weight Body Mass Index (BMI) 34.7 34.7 BMI Classification Obese Obese Vital Signs Temperature (97.8 F-99.1 F) 97 F L 97.2 F L Temperature Source Temporal Temporal Pulse Rate (60-100) 66 57 L Pulse Location Monitor Monitor Respiratory Rate (12-18) 22 H 20 H Respiratory rate source Observation Observation Oxygen Delivery Method O2 L/MIN (L/min) Blood Pressure (90/60-120/80) 124/70 H 143/69 H Blood Pressure Mean (mm Hg) 88 93 Source Monitor Monitor Position Semi-Fowlers Blood Pressure Location Left Arm History Since Last Visit- (Skip if this is Patient's initial visit) Have you changed medications since your No No last visit? Any new allergies or adverse reactions No No Had a fall/change in ADL's that may No No increase risk of falls Signs or symptoms of abuse and/or No No neglect since last visit Have you been in the hospital since your No Yes last visit? Has dressing in place as prescribed Yes No Has compression in place as prescribed Yes Yes Has offloadiing in place as prescribed No N/A Experienced any changes in pain level or No No management Left Footwear Right Footwear Pain Scale: 0-10 Numeric Is Patient Pain Free? Yes Yes - Nurse 1 - General Ulcer Measurement Start: 08/08/22 08:59 Freq: Status: Active Protocol: Activity Type Activity Date Activity User E-sign Co-sign Detail Recorded Client Recorded Date Recorded By Document 08/08/22 08:59 DL [id number] 08/08/22 09:08 DL Document 08/15/22 08:39 BMF [id number] 08/15/22 08:45 BMF Document 08/22/22 09:04 DL [id number] 08/22/22 09:14 DL Document 08/29/22 08:27 RB Desktop 08/29/22 08:41 RB Document 09/05/22 09:13 RB [id number] 09/05/22 09:26 RB 08/08/22 08/15/22 08/22/22 08:59 08:39 09:04 Wound Center Nurse 1 #3 L POST LE -Combined with other wound No -Current Size (cm) - Length 3.7 3.4 2.7 -Current Size (cm) - Width 1 0.7 0.6 -Current Size (cm) - Depth 0.2 0.2 0.1 -Total Square Cm 3.7 2.38 1.62 -Photo Taken Yes Yes -Epithelialization None Present -Tunneling No -Undermining/Tunneling No -Circular Undermining No -Exudate Amt Medium Medium Medium -Exudate Type Serosanguineous Serosanguineous Serosanguineous -Wound Margin Distinct, Distinct, Distinct, Outline Outline Outline Attached Attached Attached -Granulation Amt None Present (0 Large (67-100%) Medium (34-66%) %) -Granulation Quality [place] -Slough/Fibrin Yes -Necrosis Amt Large (67-100%) Small (1-33%) Medium (34-66%) -Necrotic Tissue Type Adherent Slough Adherent Slough Adherent Slough -Structure Exposed N/A N/A -Texture (Leticia-wound Skin Appearance) Scarring Assessed, Localized Edema Scarring ,Scarring -Moisture (Leticia-wound Skin Appearance) No Abnormality Assessed No Abnormality -Color (Leticia-wound Skin Appearance) Erythema, Assessed, Erythema Hemosiderin Erythema Staining -Temperature (Leticia-wound Skin No Abnormality No Abnormality No Abnormality Appearance) (Pt Warm) (Pt Warm) (Pt Warm) -Tenderness on Palpation (Leticia-wound No No No Skin Appearance) -Ulcer Cleansing Soap and Water Rinsed/ Soap and Water Irrigated with Saline -Foul Odor after Cleansing No No No -Anesthetic Used 5% Lidocaine 5% Lidocaine 5% Lidocaine Gel Gel Gel #2 R POST LE -Combined with other wound No -Current Size (cm) - Length 3.1 2.8 2.7 -Current Size (cm) - Width 5.4 5 0.6 -Current Size (cm) - Depth 1 0.1 0.1 -Total Square Cm 16.74 14.0 1.62 -Photo Taken Yes No Yes -Epithelialization None Present -Tunneling No -Undermining/Tunneling No -Circular Undermining No -Exudate Amt Medium Medium -Exudate Type Serous Serosanguineous Serosanguineous -Wound Margin Distinct, Distinct, Distinct, Outline Outline Outline Attached Attached Attached -Granulation Amt None Present (0 Small (1-33%) Medium (34-66%) %) -Granulation Quality [place] -Slough/Fibrin Yes -Necrosis Amt Large (67-100%) Large (67-100%) Medium (34-66%) -Necrotic Tissue Type Adherent Slough Adherent Slough Eschar -Structure Exposed N/A N/A -Texture (Leticia-wound Skin Appearance) Scarring Assessed, Localized Edema Scarring ,Scarring -Moisture (Leticia-wound Skin Appearance) No Abnormality Assessed No Abnormality -Color (Letciia-wound Skin Appearance) Erythema, Assessed, Erythema Hemosiderin Erythema Staining -Temperature (Leticia-wound Skin No Abnormality No Abnormality No Abnormality Appearance) (Pt Warm) (Pt Warm) (Pt Warm) -Tenderness on Palpation (Leticia-wound No No Yes Skin Appearance) -Ulcer Cleansing Soap and Water Rinsed/ Soap and Water Irrigated with Saline -Foul Odor after Cleansing No No No -Anesthetic Used 5% Lidocaine 5% Lidocaine 5% Lidocaine Gel Gel Gel Lower Limb Edema Present Yes Right Calf (cm) 39.4 40.8 38.5 Right Ankle (cm) 23.7 23 22.5 Left Calf (cm) 43.6 42 39.7 Left Ankle (cm) 22.5 23 21.5 08/29/22 09/05/22 08:27 09:13 Wound Center Nurse 1 #3 L POST LE -Combined with other wound No -Current Size (cm) - Length 3 2.1 -Current Size (cm) - Width 0.5 0.4 -Current Size (cm) - Depth 0.1 0.1 -Total Square Cm 1.5 0.84 -Photo Taken Yes -Epithelialization -Tunneling No -Undermining/Tunneling No -Circular Undermining No -Exudate Amt Medium Medium -Exudate Type Serosanguineous Serosanguineous -Wound Margin Distinct, Distinct, Outline Outline Attached Attached -Granulation Amt Medium (34-66%) Medium (34-66%) -Granulation Quality [place] -Slough/Fibrin Yes Yes -Necrosis Amt Medium (34-66%) Medium (34-66%) -Necrotic Tissue Type Adherent Slough Adherent Slough -Structure Exposed N/A -Texture (Leticia-wound Skin Appearance) Assessed, Assessed Scarring -Moisture (Leticia-wound Skin Appearance) Assessed Assessed -Color (Leticia-wound Skin Appearance) Assessed Assessed, Erythema -Temperature (Leticia-wound Skin No Abnormality No Abnormality Appearance) (Pt Warm) (Pt Warm) -Tenderness on Palpation (Leticia-wound No Yes Skin Appearance) -Ulcer Cleansing Wound Cleanser Soap and Water -Foul Odor after Cleansing No No -Anesthetic Used 5% Lidocaine 4% Lidocaine Gel Solution #2 R POST LE -Combined with other wound No -Current Size (cm) - Length 2.5 2.6 -Current Size (cm) - Width 0.5 4 -Current Size (cm) - Depth 0.1 0.2 -Total Square Cm 1.25 10.4 -Photo Taken Yes -Epithelialization -Tunneling No -Undermining/Tunneling No -Circular Undermining No -Exudate Amt Medium Medium -Exudate Type Serosanguineous Serosanguineous -Wound Margin Distinct, Distinct, Outline Outline Attached Attached -Granulation Amt Medium (34-66%) -Granulation Quality [place] -Slough/Fibrin Yes -Necrosis Amt Medium (34-66%) Medium (34-66%) -Necrotic Tissue Type Adherent Slough Adherent Slough -Structure Exposed N/A -Texture (Leticia-wound Skin Appearance) Assessed, Assessed Scarring -Moisture (Leticia-wound Skin Appearance) Assessed Assessed -Color (Leticia-wound Skin Appearance) Assessed Assessed, Erythema -Temperature (Leticia-wound Skin No Abnormality No Abnormality Appearance) (Pt Warm) (Pt Warm) -Tenderness on Palpation (Leticia-wound No Yes Skin Appearance) -Ulcer Cleansing Wound Cleanser Soap and Water -Foul Odor after Cleansing No No -Anesthetic Used 5% Lidocaine 5% Lidocaine Gel Gel Lower Limb Edema Present Yes Right Calf (cm) 37 39.5 Right Ankle (cm) 24 22.5 Left Calf (cm) 38.5 40.5 Left Ankle (cm) 23.5 22.2 WC - Nurse 2 - General Ulcer CM Notes Start: 08/08/22 08:59 Freq: Status: Active Protocol: Activity Type Activity Date Activity User E-sign Co-sign Detail Recorded Client Recorded Date Recorded By Document 08/08/22 09:38 MW [id number] 08/08/22 10:13 MW Document 08/15/22 08:54 BMF [id number] 08/15/22 09:17 BMF Edit Result 08/15/22 08:54 BMF (1) [id number] 08/15/22 12:45 PL Edit Result 08/15/22 08:54 BMF (2) [id number] 08/18/22 07:11 PL Document 08/22/22 09:28 MW [id number] 08/22/22 09:50 MW Document 08/29/22 09:10 MW [id number] 08/29/22 09:48 MW Document 09/05/22 09:30 MW [id number] 09/05/22 09:52 MW (1) #3 L POST LE - Debridement - Subq, 1st 20sq cm No => Yes - Debridement, SubQ, ea addt'l 20sq cm => 1 or part thereof #2 R POST LE - Debridement - Subq, 1st 20sq cm Yes => No - Debridement, SubQ, ea addt'l 20sq cm 1 => or part thereof (2) #2 R POST LE - Apply Skin Sub - 1st 25 sq cm - Legs => 1 08/08/22 08/15/22 08/22/22 09:38 08:54 09:28 Wound Center Nurse 2 #3 L POST LE -Time 09:39 08:57 09:29 -Correct Patient Yes Yes Yes -Correct Side, Site, Position Yes Yes Yes -Correct Procedure Yes Yes Yes -Procedure Performed Yes Yes Yes -Type of Procedure Debridement Debridement Debridement -Clinical Debridement Subcutaneous Subcutaneous Subcutaneous -Tissue Removed Subcutaneous Subcutaneous Subcutaneous -Post Debridement (cm) - Length 3.2 3.1 2.7 -Post Debridement (cm) - Width 0.8 0.9 0.8 -Post Debridement (cm) - Depth 0.2 0.1 0.1 -Total Square (Post) (cm) 2.56 2.79 2.16 -Area of Debridement (cm) - Length 3.2 3.1 2.7 -Area of Debridement (cm) - Width 0.8 0.9 0.8 -Total Square (Area) (cm) 2.56 2.79 2.16 -Tunneling No No No -Undermining/Tunneling No No No -Circular Undermining No No No -Wound/Ulcer Outcome Not Healed Not Healed -Ulcer Cleansing Rinsed/ Rinsed/ Rinsed/ Irrigated with Irrigated with Irrigated with Saline Saline Saline -Foul Odor after Cleansing No No No -Bioengineered Tissue No No No -Bleeding Controlled with Pressure Pressure Pressure -Treatment Response Procedure Procedure Procedure Tolerated Well Tolerated Well Tolerated Well -Offloading No No -Debridement - Subq, 1st 20sq cm Yes Yes No -Debridement, SubQ, ea addt'l 20sq cm 1 or part thereof #2 R POST LE -Time 09:39 09:01 09:32 -Correct Patient Yes Yes Yes -Correct Side, Site, Position Yes Yes Yes -Correct Procedure Yes Yes Yes -Procedure Performed Yes Yes Yes -Type of Procedure Debridement Debridement Debridement -Clinical Debridement Subcutaneous Subcutaneous Subcutaneous -Tissue Removed Subcutaneous Subcutaneous Subcutaneous -Post Debridement (cm) - Length 3.0 3.0 2.7 -Post Debridement (cm) - Width 5.5 4.5 4.7 -Post Debridement (cm) - Depth 0.2 0.1 0.1 -Total Square (Post) (cm) 16.50 13.50 12.69 -Area of Debridement (cm) - Length 3.0 3.0 2.7 -Area of Debridement (cm) - Width 5.5 4.5 4.7 -Total Square (Area) (cm) 16.50 13.50 12.69 -Tunneling No No No -Undermining/Tunneling No No No -Circular Undermining No No No -Wound/Ulcer Outcome Not Healed Not Healed -Ulcer Cleansing Rinsed/ Rinsed/ Rinsed/ Irrigated with Irrigated with Irrigated with Saline Saline Saline -Foul Odor after Cleansing No No No -Bioengineered Tissue No Yes Yes -Type of Bioengineered Tissue Epifix Mesh Epifix Mesh -Expiration Date 03/08/27 05/08/27 -Product Lot Number [id number] -Percent Used 100 100 -Lot number of Saline Used [id number] -Topical Lidocaine (%) 5 -Bleeding Controlled with Pressure Pressure Pressure -Treatment Response Procedure Procedure Procedure Tolerated Well Tolerated Well Tolerated Well -Offloading No No -Debridement - Subq, 1st 20sq cm No No No -Apply Skin Sub - 1st 25 sq cm - Legs 1 1 -Epifix (per sq cm) -Epifix Mesh (per sq cm) 11 11 Pain Scale: 0-10 Numeric Is Patient Pain Free? Yes Yes Yes 08/29/22 09/05/22 09:10 09:30 Wound Center Nurse 2 #3 L POST LE -Time 09: 09:31 -Correct Patient Yes Yes -Correct Side, Site, Position Yes Yes -Correct Procedure Yes Yes -Procedure Performed Yes Yes -Type of Procedure Debridement Debridement -Clinical Debridement Subcutaneous Subcutaneous -Tissue Removed Subcutaneous Subcutaneous -Post Debridement (cm) - Length 2.3 2.4 -Post Debridement (cm) - Width 0.7 0.4 -Post Debridement (cm) - Depth 0.1 0.1 -Total Square (Post) (cm) 1.61 0.96 -Area of Debridement (cm) - Length 2.3 2.4 -Area of Debridement (cm) - Width 0.7 0.4 -Total Square (Area) (cm) 1.61 0.96 -Tunneling No No -Undermining/Tunneling No No -Circular Undermining No No -Wound/Ulcer Outcome Not Healed Not Healed -Ulcer Cleansing Rinsed/ Rinsed/ Irrigated with Irrigated with Saline Saline -Foul Odor after Cleansing No No -Bioengineered Tissue No No -Bleeding Controlled with Pressure Pressure -Treatment Response Procedure Procedure Tolerated Well Tolerated Well -Offloading No No -Debridement - Subq, 1st 20sq cm Yes Yes -Debridement, SubQ, ea addt'l 20sq cm or part thereof #2 R POST LE -Time 09:11 09:31 -Correct Patient Yes Yes -Correct Side, Site, Position Yes Yes -Correct Procedure Yes Yes -Procedure Performed Yes Yes -Type of Procedure Debridement Debridement -Clinical Debridement Subcutaneous Subcutaneous -Tissue Removed Subcutaneous Subcutaneous -Post Debridement (cm) - Length 2.7 2.7 -Post Debridement (cm) - Width 4.5 4.1 -Post Debridement (cm) - Depth 0.1 0.1 -Total Square (Post) (cm) 12.15 11.07 -Area of Debridement (cm) - Length 2.7 2.7 -Area of Debridement (cm) - Width 4.5 4.1 -Total Square (Area) (cm) 12.15 11.07 -Tunneling No No -Undermining/Tunneling No No -Circular Undermining No No -Wound/Ulcer Outcome Not Healed Not Healed -Ulcer Cleansing Rinsed/ Rinsed/ Irrigated with Irrigated with Saline Saline -Foul Odor after Cleansing No No -Bioengineered Tissue Yes Yes -Type of Bioengineered Tissue Epifix Mesh Epifix -Expiration Date 05/08/27 05/08/27 -Product Lot Number 100 [id number] -Percent Used 100 100 -Lot number of Saline Used [id number] -Topical Lidocaine (%) -Bleeding Controlled with Pressure Pressure -Treatment Response Procedure Procedure Tolerated Well Tolerated Well -Offloading No No -Debridement - Subq, 1st 20sq cm No No -Apply Skin Sub - 1st 25 sq cm - Legs 1 1 -Epifix (per sq cm) 4 -Epifix Mesh (per sq cm) 11 Pain Scale: 0-10 Numeric Is Patient Pain Free? Yes Yes WC - Nurse 3 - General Ulcer D/C NN Start: 08/08/22 08:59 Freq: Status: Active Protocol: Activity Type Activity Date Activity User E-sign Co-sign Detail Recorded Client Recorded Date Recorded By Document 08/08/22 10:26 DL [id number] 08/08/22 10:34 DL Document 08/15/22 09:28 ML [id number] 08/15/22 09:29 ML Document 08/22/22 10:09 RB [id number] 08/22/22 10:11 RB Document 08/29/22 10:06 [facility] [id number] 08/29/22 10:07 [facility] Document 09/05/22 10:08 DL [id number] 09/05/22 10:10 DL 08/08/22 08/15/22 08/22/22 10:26 09:28 10:09 Wound Care Center Nurse 3 #3 L POST LE -Ulcer Cleansing Rinsed/ Irrigated with Saline -Foul Odor after Cleansing No -Primary Dressing Applied NonAdherent Mepilex Border Mepilex Border Contact Layer, Mepilex Border -Other Dressing hydrogel epifix -Primary Dressing Covered/Secured with -Other Covering -Mepilex Border 1 1 1 #2 R POST LE -Ulcer Cleansing Rinsed/ Irrigated with Saline -Foul Odor after Cleansing No -Primary Dressing Applied Mepilex Border Mepilex Border Mepilex Border -Other Dressing hydrogel -Primary Dressing Covered/Secured with -Other Covering epifix -Mepilex Border 1 1 1 bilateral -Stockings -Other circaid Treatment Response Procedure Procedure Tolerated Well Tolerated Well Pain Scale: 0-10 Numeric Is Patient Pain Free? Yes Yes Yes WC - Visit Discharge Discharge Condition Stable Stable Ambulatory Status Ambulatory, Ambulatory Walker Transportation Private Jun Group Auto Accompanied by Medication Reconcilliation completed & No provided to patient/care provider Clinical Summary of Care Provided Yes 08/29/22 09/05/22 10:06 10:08 Wound Care Center Nurse 3 #3 L POST LE -Ulcer Cleansing -Foul Odor after Cleansing No -Primary Dressing Applied -Other Dressing EPIFIX Epifix/hydrogel -Primary Dressing Covered/Secured with Dry Gauze & Dry Gauze, Roll Gauze, Secured with Secured with Tape Tape -Other Covering ABD -Mepilex Border #2 R POST LE -Ulcer Cleansing -Foul Odor after Cleansing No -Primary Dressing Applied -Other Dressing EPIFIX Epifix/hydrogel -Primary Dressing Covered/Secured with Dry Gauze & Dry Gauze, Roll Gauze, Secured with Secured with Tape Tape -Other Covering ABD -Mepilex Border bilateral -Stockings Yes -Other LYNNE CIRCAIDS APPLIED Treatment Response Procedure Procedure Tolerated Well Tolerated Well Pain Scale: 0-10 Numeric Is Patient Pain Free? Yes Yes WC - Visit Discharge Discharge Condition Stable Stable Ambulatory Status Ambulatory, Ambulatory, Walker Walker Transportation Private Auto Private Auto Accompanied by 2 DAUGHTERS Medication Reconcilliation completed & provided to patient/care provider Clinical Summary of Care Provided Additional Wound Wound debrided: left posterior LE Laterality: Left Type of Debridement: Excisional debridement Anesthesia Used: 4% Lidocaine Solution, 5% Lidocaine Gel and Cetacaine Depth: Down to and including healthy tissue and in the subcutaneous layer Percentage of wound debrided: 100 Instrument Used: 5mm curette Tissue Removed: Yellow slough, devitalized tissue Severity: Fat Layer Exposed Amount of bleeding with debridement: Mild Bleeding Controlled with: Compression and gauze Patient tolerated procedure: Patient tolerated procedure well Assessment/Plan Assessment/Plan (1) Venous stasis ulcer of left lower leg with edema of left lower leg: CODE(S): I83.029 - Varicose veins of left lower extremity with ulcer of unspecified site; I83.892 - Varicose veins of left lower extremity with other complications; L97.929 - Non-pressure chronic ulcer of unspecified part of left lower leg with unspecified severity; R60.9 - Edema, unspecified (2) Diabetes mellitus: CODE(S): E11.9 - Type 2 diabetes mellitus without complications QUALIFIERS: Diabetes mellitus type: type 2 Diabetes mellitus fdc insulin use: without long term care administrator use Diabetes mellitus complication status: with neurologic complications Diabetes mellitus complication detail: with polyneuropathy Qualified Code(s): E11.42 - Type 2 diabetes mellitus with diabetic polyneuropathy (3) Chronic obstructive pulmonary disease: CODE(S): J44.9 - Chronic obstructive pulmonary disease, unspecified QUALIFIERS: COPD type: unspecified COPD Qualified Code(s): J44.9 - Chronic obstructive pulmonary disease, unspecified (4) Hypertension: CODE(S): I10 - Essential (primary) hypertension QUALIFIERS: Hypertension type: primary hypertension Qualified Code(s): I10 - Essential (primary) hypertension (5) 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: CODE(S): I83.019 - Varicose veins of right lower extremity with ulcer of unspecified site; L97.919 - Non-pressure chronic ulcer of unspecified part of right lower leg with unspecified severity (6) Nonhealing ulcer of left lower extremity with fat layer exposed: CODE(S): L97.922 - Non-pressure chronic ulcer of unspecified part of left lower leg with fat layer exposed (7) Nonhealing ulcer of right lower extremity with fat layer exposed: CODE(S): L97.912 - Non-pressure chronic ulcer of unspecified part of rightlower leg with fat layer exposed (8) Supplemental oxygen dependent: CODE(S): Z99.81 - Dependence on supplemental oxygen PLAN: Plan Debridement performed today in clinic as annotated above. At home wound-care instructions: Epifix #4 applied to her right posterior LE ulcer today per operations architect guidelines using 100% of product, rehydrated with hydrogel and covered with adaptic touch and secured with steristrips. She will not change the dressing on this for 1 week unless there is drainage and then would change silicone foam dressing. Will have her continue Santyl and adaptic to left ulcer daily. She will cover with silicone bordered foam dressing. Keep dressing clean and dry. Off-loading: The patient was instructed to avoid pressure and friction on the affected areas. Reposition every 2 hours at minimum. Avoid prolonged standing and/or dangling of legs. When seated, feet should be elevated at chest level. Frequent ambulation is encouraged. Diet: Patient encouraged to increase protein intake while taking caution to avoid high carbohydrate and/or sugar intake. Labs/cultures/imaging: Vascular testing ordered to evaluate for arterial and venous disease showed incompetence of accessory saphenous veins b/l and normal arterial studies except decreased at level of great toe. Follow-up: Return in 1 week for wound care follow up. Return sooner or report tothe emergency room should symptoms worsen, or new symptoms arise. Note: [employer] speech recognition auto motor mechanic software was used to create portions of this document. Sound-alike and misspelled words, as well as other auto motor mechanic errors may be contained in the documentation. 09/05/22 1407 <Electronically signed by Nisha Magallon DO> Cosigner Signature (if applicable): CC: ~ Signed [facility] Work Phone: [phone]) 424-725203-31-[address] Magallon [facility] September 05, 2022 2:05pm Note Date/Time August 29, 2022 1:0 5pm [facility] [address] [place] [id number] Progress Note - Wound Care 08/29/22 1305 MR#: [id number] Acct: [id number] Name: KANDI CORREIA Rep #:[id number] : 1945 76 From: Nisha Mgaallon DO PCP: Dr. Jalyn Smith MD Status:REG R CR Location: History of Present Illness Date of Service: 09/05/22 Chief Complaint: Venous leg ulcer left lower extremity and right lower extremity History of Wound: This is a 76-year-old white female who presents to the wound healing center today with complaint of nonhealing ulceration of her right and left lower extremities. She has a past medical history significant for chronic hypoxia on supplemental O2, COPD, type 2 diabetes mellitus, CHF, and osteoarthritis of the bilateral knees and GERD. The patient states that her wounds initially occurred after scratching the back of her leg on something almost a month ago. She saw her PCP last week and was started on Cephalexin QID x 10 days. She was 2 days left of treatment. She has not had any improvement in her pain or ulcers since starting the antibiotic. Shehas been applying triple antibiotic ointment covering with gauze for the last few days but had been using hydrogel and nonadherent dressings prior to that. She states that she has not been utilizing any compression due to pain but has been elevating her legs more frequently and using a wedge pillow. She denies any systemic or localized signs of infection at this time. Denies any prior cultures being taken. 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 Progress of Wound: She tolerated treatment with Epifix to the right posterior calf. Left posterior calf also improved and tolerating treatment with Santyl. 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 Objective Data Objective Data Vital Signs: Vital Signs Temp Pulse Resp BP O2 Del Method O2 Flow Rate 97 F L 66 22 H 124/70 H Nasal Cannula 2 08/29/22 08:27 08/29/22 08:27 08/29/22 08:27 08/29/22 08:27 08/15/22 08:39 08/15/22 08:39 Oxygen Flow Rate (L/min) 2 Oxygen Delivery Method Nasal Cannula Weight: 91.777 kg Body Mass Index (BMI) 34.7 Physical Exam Const alert, oriented x3 and no apparent distress General Appearance: cooperative and comfortable HEENT normocephalic and head/scalp atraumatic Resp normal respiratory effort Effort and Inspection: able to speak in complete sentences Cardio regular rate and regular rhythm Skin Wounds: wounds noted Wound Narrative: as in clinical panel Psych mental status grossly normal, thought process normal, cooperative and affect normal Debridement Note Debridement Note Wound debrided: right posterior LE Laterality: Right Type of Debridement: Excisional debridement Anesthesia Used: 4% Lidocaine Solution, 5% Lidocaine Gel and Cetacaine Depth: Down to and including healthy tissue and in the subcutaneous layer Percentage of wound debrided: 100 Instrument Used: 5mm curette Tissue Removed: Yellow slough, devitalized tissue Severity: Fat Layer Exposed Amount of bleeding with debridement: Mild Bleeding Controlled with: Compression and gauze Patient tolerated procedure: Patient tolerated procedure well Post-Debridement Measurements and Additional Note: Post-Debridement Measurements/Treatment - Nurse 1 - General Ulcer Assessment Start: 08/08/22 08:59 Freq: Status: Active Protocol: CHING Activity Type Activity Date Activity User E-sign Co-sign Detail Recorded Client Recorded Date Recorded By Document 08/08/22 08:59 DL [id number] 08/08/22 09:08 DL Document 08/15/22 08:39 BMF [id number] 08/15/22 08:45 BMF Document 08/22/22 09:04 DL [id number] 08/22/22 09:14 DL Document 08/29/22 08:27 RB Desktop 08/29/22 08:41 RB 08/08/22 08/15/22 08/22/22 08:59 08:39 09:04 - Today's Visit Information Type of service Follow-up Visit Follow-up Visit Follow-up Visit (Physician/REFINERY OPERATOR HELPER (Physician/REFINERY OPERATOR HELPER (Physician/REFINERY OPERATOR HELPER ) ) ) Arrival Mode Ambulatory, Ambulatory, Ambulatory, Walker Walker Walker Transfer Assistance None None None Accompanied by daughter Patient Identification Verified (Name & Yes Yes Yes ) Patient Requires Transmission-Based No No No Precautions Finger Stick Blood Sugar(mg/dl) (if didnt check indicated): Blood Sugar Stated by Patient Height and Weight Body Mass Index (BMI) 34.7 34.7 34.7 BMI Classification Obese Obese Obese Vital Signs Temperature (97.8 F-99.1 F) 98.1 F 96.8 F L 97.1 F L Temperature Source Temporal Temporal Temporal Pulse Rate (60-100) 67 60 78 Pulse Location Monitor Monitor Monitor Respiratory Rate (12-18) 22 H 18 20 H Respiratory rate source Observation Observation Observation Oxygen Delivery Method Nasal Cannula O2 L/MIN (L/min) 2 Blood Pressure (90/60-120/80) 155/84 H 168/79 H 150/80 H Blood Pressure Mean (mm Hg) 107 108 103 Source Monitor Monitor Monitor Position Sitting Blood Pressure Location Left Arm History Since Last Visit- (Skip if this is Patient's initial visit) Have you changed medications since your No No last visit? Any new allergies or adverse reactions No No No Had a fall/change in ADL's that may No No No increase risk of falls Signs or symptoms of abuse and/or No No No neglect since last visit Have you been in the hospital since your No No No last visit? Has dressing in place as prescribed No Yes Yes Has compression in place as prescribed Yes N/A Yes Has offloadiing in place as prescribed N/A N/A N/A Experienced any changes in pain level or No No management Left Footwear Regular Shoe Right Footwear Regular Shoe Pain Scale: 0-10 Numeric Is Patient Pain Free? Yes Yes Yes 08/29/22 08:27 WC - Today's Visit Information Type of service Follow-up Visit (Physician/REFINERY OPERATOR HELPER ) Arrival Mode Ambulatory, Walker Transfer Assistance None Accompanied by Patient Identification Verified (Name & Yes ) Patient Requires Transmission-Based No Precautions Finger Stick Blood Sugar(mg/dl) (if indicated): Blood Sugar Height and Weight Body Mass Index (BMI) 34.7 BMI Classification Obese Vital Signs Temperature (97.8 F-99.1 F) 97 F L Temperature Source Temporal Pulse Rate (60-100) 66 Pulse Location Monitor Respiratory Rate (12-18) 22 H Respiratory rate source Observation Oxygen Delivery Method O2 L/MIN (L/min) Blood Pressure (90/60-120/80) 124/70 H Blood Pressure Mean (mm Hg) 88 Source Monitor Position Semi-Fowlers Blood Pressure Location Left Arm History Since Last Visit- (Skip if this is Patient's initial visit) Have you changed medications since your No last visit? Any new allergies or adverse reactions No Had a fall/change in ADL's that may No increase risk of falls Signs or symptoms of abuse and/or No neglect since last visit Have you been in the hospital since your No last visit? Has dressing in place as prescribed Yes Has compression in place as prescribed Yes Has offloadiing in place as prescribed No Experienced any changes in pain level or No management Left Footwear Right Footwear Pain Scale: 0-10 Numeric Is Patient Pain Free? Yes - Nurse 1 - General Ulcer Measurement Start: 08/08/22 08:59 Freq: Status: Active Protocol: Activity Type Activity Date Activity User E-sign Co-sign Detail Recorded Client Recorded Date Recorded By Document 03/03/23 08:59 DL [id number] 08/08/22 09:08 DL Document 08/15/22 08:39 BMF [id number] 08/15/22 08:45 BMF Document 08/22/22 09:04 DL [id number] 08/22/22 09:14 DL Document 08/29/22 08:27 RB Desktop 08/29/22 08:41 RB 08/08/22 08/15/22 08/22/22 08:59 08:39 09:04 Wound Center Nurse 1 #3 L POST LE -Combined with other wound No -Current Size (cm) - Length 3.7 3.4 2.7 -Current Size (cm) - Width 1 0.7 0.6 -Current Size (cm) - Depth 0.2 0.2 0.1 -Total Square Cm 3.7 2.38 1.62 -Photo Taken Yes Yes -Epithelialization None Present -Tunneling No -Undermining/Tunneling No -Circular Undermining No -Exudate Amt Medium Medium Medium -Exudate Type Serosanguineous Serosanguineous Serosanguineous -Wound Margin Distinct, Distinct, Distinct, Outline Outline Outline Attached Attached Attached -Granulation Amt None Present (0 Large (67-100%) Medium (34-66%) %) -Granulation Quality Red [place] -Slough/Fibrin Yes -Necrosis Amt Large (67-100%) Small (1-33%) Medium (34-66%) -Necrotic Tissue Type Adherent Slough Adherent Slough Adherent Slough -Structure Exposed N/A N/A -Texture (Leticia-wound Skin Appearance) Scarring Assessed, Localized Edema Scarring ,Scarring -Moisture (Leticia-wound Skin Appearance) No Abnormality Assessed No Abnormality -Color (Leticia-wound Skin Appearance) Erythema, Assessed, Erythema Hemosiderin Erythema Staining -Temperature (Leticia-wound Skin No Abnormality No Abnormality No Abnormality Appearance) (Pt Warm) (Pt Warm) (Pt Warm) -Tenderness on Palpation (Leticia-wound No No No Skin Appearance) -Ulcer Cleansing Soap and Water Rinsed/ Soap and Water Irrigated with Saline -Foul Odor after Cleansing No No No -Anesthetic Used 5% Lidocaine 5% Lidocaine 5% Lidocaine Gel Gel Gel #2 R POST LE -Combined with other wound No -Current Size (cm) - Length 3.1 2.8 2.7 -Current Size (cm) - Width 5.4 5 0.6 -Current Size (cm) - Depth 1 0.1 0.1 -Total Square Cm 16.74 14.0 1.62 -Photo Taken Yes No Yes -Epithelialization None Present -Tunneling No -Undermining/Tunneling No -Circular Undermining No -Exudate Amt Medium Medium -Exudate Type Serous Serosanguineous Serosanguineous -Wound Margin Distinct, Distinct, Distinct, Outline Outline Outline Attached Attached Attached -Granulation Amt None Present (0 Small (1-33%) Medium (34-66%) %) -Granulation Quality [place] -Slough/Fibrin Yes -Necrosis Amt Large (67-100%) Large (67-100%) Medium (34-66%) -Necrotic Tissue Type Adherent Slough Adherent Slough Eschar -Structure Exposed N/A N/A -Texture (Leticia-wound Skin Appearance) Scarring Assessed, Localized Edema Scarring ,Scarring -Moisture (Leticia-wound Skin Appearance) No Abnormality Assessed No Abnormality -Color (Leticia-wound Skin Appearance) Erythema, Assessed, Erythema Hemosiderin Erythema Staining -Temperature (Leticia-wound Skin No Abnormality No Abnormality No Abnormality Appearance) (Pt Warm) (Pt Warm) (Pt Warm) -Tenderness on Palpation (Leticia-wound No No Yes Skin Appearance) -Ulcer Cleansing Soap and Water Rinsed/ Soap and Water Irrigated with Saline -Foul Odor after Cleansing No No No -Anesthetic Used 5% Lidocaine 5% Lidocaine 5% Lidocaine Gel Gel Gel Lower Limb Edema Present Yes Right Calf (cm) 39.4 40.8 38.5 Right Ankle (cm) 23.7 23 22.5 Left Calf (cm) 43.6 42 39.7 Left Ankle (cm) 22.5 23 21.5 08/29/22 08:27 Wound Center Nurse 1 #3 L POST LE -Combined with other wound No -Current Size (cm) - Length 3 -Current Size (cm) - Width 0.5 -Current Size (cm) - Depth 0.1 -Total Square Cm 1.5 -Photo Taken Yes -Epithelialization -Tunneling No -Undermining/Tunneling No -Circular Undermining No -Exudate Amt Medium -Exudate Type Serosanguineous -Wound Margin Distinct, Outline Attached -Granulation Amt Medium (34-66%) -Granulation Quality [place] -Slough/Fibrin Yes -Necrosis Amt Medium (34-66%) -Necrotic Tissue Type Adherent Slough -Structure Exposed N/A -Texture (Leticia-wound Skin Appearance) Assessed, Scarring -Moisture (Leticia-wound Skin Appearance) Assessed -Color (Leticia-wound Skin Appearance) Assessed -Temperature (Leticia-wound Skin No Abnormality Appearance) (Pt Warm) -Tenderness on Palpation (Leticia-wound No Skin Appearance) -Ulcer Cleansing Wound Cleanser -Foul Odor after Cleansing No -Anesthetic Used 5% Lidocaine Gel #2 R POST LE -Combined with other wound No -Current Size (cm) - Length 2.5 -Current Size (cm) - Width 0.5 -Current Size (cm) - Depth 0.1 -Total Square Cm 1.25 -Photo Taken Yes -Epithelialization -Tunneling No -Undermining/Tunneling No -Circular Undermining No -Exudate Amt Medium -Exudate Type Serosanguineous -Wound Margin Distinct, Outline Attached -Granulation Amt Medium (34-66%) -Granulation Quality [place] -Slough/Fibrin Yes -Necrosis Amt Medium (34-66%) -Necrotic Tissue Type Adherent Slough -Structure Exposed N/A -Texture (Leticia-wound Skin Appearance) Assessed, Scarring -Moisture (Leticia-wound Skin Appearance) Assessed -Color (Leticia-wound Skin Appearance) Assessed -Temperature (Leticia-wound Skin No Abnormality Appearance) (Pt Warm) -Tenderness on Palpation (Leticia-wound No Skin Appearance) -Ulcer Cleansing Wound Cleanser -Foul Odor after Cleansing No -Anesthetic Used 5% Lidocaine Gel Lower Limb Edema Present Yes Right Calf (cm) 37 Right Ankle (cm) 24 Left Calf (cm) 38.5 Left Ankle (cm) 23.5 WC - Nurse 2 - General Ulcer CM Notes Start: 08/08/22 08:59 Freq: Status: Active Protocol: Activity Type Activity Date Activity User E-sign Co-sign Detail Recorded Client Recorded Date Recorded By Document 08/08/22 09:38 MW [id number] 08/08/22 10:13 MW Document 08/15/22 08:54 BMF [id number] 08/15/22 09:17 BMF Edit Result 03/10/23 08:54 BMF (1) [id number] 08/15/22 12:45 PL Edit Result 08/15/22 08:54 BMF (2) [id number] 08/18/22 07:11 PL Document 08/22/22 09:28 MW [id number] 08/22/22 09:50 MW Document 08/29/22 09:10 MW [id number] 08/29/22 09:48 MW (1) #3 L POST LE - Debridement - Subq, 1st 20sq cm No => Yes - Debridement, SubQ, ea addt'l 20sq cm => 1 or part thereof #2 R POST LE - Debridement - Subq, 1st 20sq cm Yes => No - Debridement, SubQ, ea addt'l 20sq cm 1 => or part thereof (2) #2 R POST LE - Apply Skin Sub - 1st 25 sq cm - Legs => 1 08/08/22 08/15/22 08/22/22 09:38 08:54 09:28 Wound Center Nurse 2 #3 L POST LE -Time 09:39 08:57 09:29 -Correct Patient Yes Yes Yes -Correct Side, Site, Position Yes Yes Yes -Correct Procedure Yes Yes Yes -Procedure Performed Yes Yes Yes -Type of Procedure Debridement Debridement Debridement -Clinical Debridement Subcutaneous Subcutaneous Subcutaneous -Tissue Removed Subcutaneous Subcutaneous Subcutaneous -Post Debridement (cm) - Length 3.2 3.1 2.7 -Post Debridement (cm) - Width 0.8 0.9 0.8 -Post Debridement (cm) - Depth 0.2 0.1 0.1 -Total Square (Post) (cm) 2.56 2.79 2.16 -Area of Debridement (cm) - Length 3.2 3.1 2.7 -Area of Debridement (cm) - Width 0.8 0.9 0.8 -Total Square (Area) (cm) 2.56 2.79 2.16 -Tunneling No No No -Undermining/Tunneling No No No -Circular Undermining No No No -Wound/Ulcer Outcome Not Healed Not Healed -Ulcer Cleansing Rinsed/ Rinsed/ Rinsed/ Irrigated with Irrigated with Irrigated with Saline Saline Saline -Foul Odor after Cleansing No No No -Bioengineered Tissue No No No -Bleeding Controlled with Pressure Pressure Pressure -Treatment Response Procedure Procedure Procedure Tolerated Well Tolerated Well Tolerated Well -Offloading No No -Debridement - Subq, 1st 20sq cm Yes Yes No -Debridement, SubQ, ea addt'l 20sq cm 1 or part thereof #2 R POST LE -Time 09:39 09:01 09:32 -Correct Patient Yes Yes Yes -Correct Side, Site, Position Yes Yes Yes -Correct Procedure Yes Yes Yes -Procedure Performed Yes Yes Yes -Type of Procedure Debridement Debridement Debridement -Clinical Debridement Subcutaneous Subcutaneous Subcutaneous -Tissue Removed Subcutaneous Subcutaneous Subcutaneous -Post Debridement (cm) - Length 3.0 3.0 2.7 -Post Debridement (cm) - Width 5.5 4.5 4.7 -Post Debridement (cm) - Depth 0.2 0.1 0.1 -Total Square (Post) (cm) 16.50 13.50 12.69 -Area of Debridement (cm) - Length 3.0 3.0 2.7 -Area of Debridement (cm) - Width 5.5 4.5 4.7 -Total Square (Area) (cm) 16.50 13.50 12.69 -Tunneling No No No -Undermining/Tunneling No No No -Circular Undermining No No No -Wound/Ulcer Outcome Not Healed Not Healed -Ulcer Cleansing Rinsed/ Rinsed/ Rinsed/ Irrigated with Irrigated with Irrigated with Saline Saline Saline -Foul Odor after Cleansing No No No -Bioengineered Tissue No Yes Yes -Type of Bioengineered Tissue Epifix Mesh Epifix Mesh -Expiration Date 03/08/27 05/08/27 -Product Lot Number [id number] -Percent Used 100 100 -Lot number of Saline Used [id number] -Topical Lidocaine (%) 5 -Bleeding Controlled with Pressure Pressure Pressure -Treatment Response Procedure Procedure Procedure Tolerated Well Tolerated Well Tolerated Well -Offloading No No -Debridement - Subq, 1st 20sq cm No No No -Apply Skin Sub - 1st 25 sq cm - Legs 1 1 -Epifix Mesh (per sq cm) 11 11 Pain Scale: 0-10 Numeric Is Patient Pain Free? Yes Yes Yes 08/29/22 09:10 Wound Center Nurse 2 #3 L POST LE -Time 09:10 -Correct Patient Yes -Correct Side, Site, Position Yes -Correct Procedure Yes -Procedure Performed Yes -Type of Procedure Debridement -Clinical Debridement Subcutaneous -Tissue Removed Subcutaneous -Post Debridement (cm) - Length 2.3 -Post Debridement (cm) - Width 0.7 -Post Debridement (cm) - Depth 0.1 -Total Square (Post) (cm) 1.61 -Area of Debridement (cm) - Length 2.3 -Area of Debridement (cm) - Width 0.7 -Total Square (Area) (cm) 1.61 -Tunneling No -Undermining/Tunneling No -Circular Undermining No -Wound/Ulcer Outcome Not Healed -Ulcer Cleansing Rinsed/ Irrigated with Saline -Foul Odor after Cleansing No -Bioengineered Tissue No -Bleeding Controlled with Pressure -Treatment Response Procedure Tolerated Well -Offloading No -Debridement - Subq, 1st 20sq cm Yes -Debridement, SubQ, ea addt'l 20sq cm or part thereof #2 R POST LE -Time 09:11 -Correct Patient Yes -Correct Side, Site, Position Yes -Correct Procedure Yes -Procedure Performed Yes -Type of Procedure Debridement -Clinical Debridement Subcutaneous -Tissue Removed Subcutaneous -Post Debridement (cm) - Length 2.7 -Post Debridement (cm) - Width 4.5 -Post Debridement (cm) - Depth 0.1 -Total Square (Post) (cm) 12.15 -Area of Debridement (cm) - Length 2.7 -Area of Debridement (cm) - Width 4.5 -Total Square (Area) (cm) 12.15 -Tunneling No -Undermining/Tunneling No -Circular Undermining No -Wound/Ulcer Outcome Not Healed -Ulcer Cleansing Rinsed/ Irrigated with Saline -Foul Odor after Cleansing No -Bioengineered Tissue Yes -Type of Bioengineered Tissue Epifix Mesh -Expiration Date 05/08/27 -Product Lot Number 100 -Percent Used 100 -Lot number of Saline Used [id number] -Topical Lidocaine (%) -Bleeding Controlled with Pressure -Treatment Response Procedure Tolerated Well -Offloading No -Debridement - Subq, 1st 20sq cm No -Apply Skin Sub - 1st 25 sq cm - Legs 1 -Epifix Mesh (per sq cm) 11 Pain Scale: 0-10 Numeric Is Patient Pain Free? Yes WC - Nurse 3 - General Ulcer D/C NN Start: 08/08/22 08:59 Freq: Status: Active Protocol: Activity Type Activity Date Activity User E-sign Co-sign Detail Recorded Client Recorded Date Recorded By Document 08/08/22 10:26 DL [id number] 08/08/22 10:34 DL Document 08/15/22 09:28 ML [id number] 08/15/22 09:29 ML Document 08/22/22 10:09 RB [id number] 08/22/22 10:11 RB Document 08/29/22 10:06 [facility] [id number] 08/29/22 10:07 BMF 08/08/22 08/15/22 08/22/22 10:26 09:28 10:09 Wound Care Center Nurse 3 #3 L POST LE -Ulcer Cleansing Rinsed/ Irrigated with Saline -Foul Odor after Cleansing No -Primary Dressing Applied NonAdherent Mepilex Border Mepilex Border Contact Layer, Mepilex Border -Other Dressing hydrogel epifix -Primary Dressing Covered/Secured with -Other Covering -Mepilex Border 1 1 1 #2 R POST LE -Ulcer Cleansing Rinsed/ Irrigated with Saline -Foul Odor after Cleansing No -Primary Dressing Applied Mepilex Border Mepilex Border Mepilex Border -Other Dressing hydrogel -Primary Dressing Covered/Secured with -Other Covering epifix -Mepilex Border 1 1 1 bilateral -Other circaid Treatment Response Procedure Procedure Tolerated Well Tolerated Well Pain Scale: 0-10 Numeric Is Patient Pain Free? Yes Yes Yes WC - Visit Discharge Discharge Condition Stable Stable Ambulatory Status Ambulatory, Ambulatory Walker Transportation Private Auto Private Auto Accompanied by Medication Reconcilliation completed & No provided to patient/care provider Clinical Summary of Care Provided Yes 08/29/22 10:06 Wound Care Center Nurse 3 #3 L POST LE -Ulcer Cleansing -Foul Odor after Cleansing -Primary Dressing Applied -Other Dressing EPIFIX -Primary Dressing Covered/Secured with Dry Gauze & Roll Gauze, Secured with Tape -Other Covering ABD -Mepilex Border #2 R POST LE -Ulcer Cleansing -Foul Odor after Cleansing -Primary Dressing Applied -Other Dressing EPIFIX -Primary Dressing Covered/Secured with Dry Gauze & Roll Gauze, Secured with Tape -Other Covering ABD -Mepilex Border bilateral -Other LYNNE CIRCAIDS APPLIED Treatment Response Procedure Tolerated Well Pain Scale: 0-10 Numeric Is Patient Pain Free? Yes WC - Visit Discharge Discharge Condition Stable Ambulatory Status Ambulatory, Walker Transportation Private Auto Accompanied by 2 DAUGHTERS Medication Reconcilliation completed & provided to patient/care provider Clinical Summary of Care Provided Additional Wound Wound debrided: left posterior LE Laterality: Left Type of Debridement: Excisional debridement Anesthesia Used: 4% Lidocaine Solution, 5% Lidocaine Gel and Cetacaine Depth: Down to and including healthy tissue and in the subcutaneous layer Percentage of wound debrided: 100 Instrument Used: 5mm curette Tissue Removed: Yellow slough, devitalized tissue Severity: Fat Layer Exposed Amount of bleeding with debridement: Mild Bleeding Controlled with: Compression and gauze Patient tolerated procedure: Patient tolerated procedure well Assessment/Plan Assessment/Plan (1) Venous stasis ulcer of left lower leg with edema of left lower leg: CODE(S): I83.029 - Varicose veins of left lower extremity with ulcer of unspecified site; I83.892 - Varicose veins of left lower extremity with other complications; L97.929 - Non-pressure chronic ulcer of unspecified part of left lower leg with unspecified severity; R60.9 - Edema, unspecified (2) Diabetes mellitus: CODE(S): E11.9 - Type 2 diabetes mellitus without complications QUALIFIERS: Diabetes mellitus complication detail: with polyneuropathy Diabetes mellitus complication status: with neurologic complications Diabetes mellitus fpc insulin use: without long term care administrator use Diabetes mellitus type: type 2 Qualified Code(s): E11.42 - Type 2 diabetes mellitus with diabetic polyneuropathy (3) Chronic obstructive pulmonary disease: CODE(S): J44.9 - Chronic obstructive pulmonary disease, unspecified QUALIFIERS: COPD type: unspecified COPD Qualified Code(s): J44.9 - Chronic obstructive pulmonary disease, unspecified (4) Hypertension: CODE(S): I10 - Essential (primary) hypertension QUALIFIERS: Hypertension type: primary hypertension Qualified Code(s): I10 - Essential (primary) hypertension (5) 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: CODE(S): I83.019 - Varicose veins of right lower extremity with ulcer of unspecified site; L97.919 - Non-pressure chronic ulcer of unspecified part of right lower leg with unspecified severity (6) Nonhealing ulcer of left lower extremity with fat layer exposed: CODE(S): L97.922 - Non-pressure chronic ulcer of unspecified part of left lower leg with fat layer exposed (7) Nonhealing ulcer of right lower extremity with fat layer exposed: CODE(S): L97.912 - Non-pressure chronic ulcer of unspecified part of rightlower leg with fat layer exposed (8) Supplemental oxygen dependent: CODE(S): Z99.81 - Dependence on supplemental oxygen PLAN: Plan Debridement performed today in clinic as annotated above. At home wound-care instructions: Epifix #3 applied to her right posterior LE ulcer today per operations architect guidelines using 100% of product, rehydrated with hydrogel and covered with adaptic touch and secured with steristrips. She will not change the dressing on this for 1 week unless there is drainage and then would change silicone foam dressing. Will have her continue Santyl and adaptic to left ulcer daily. She will cover with silicone bordered foam dressing. Keep dressing clean and dry. Off-loading: The patient was instructed to avoid pressure and friction on the affected areas. Reposition every 2 hours at minimum. Avoid prolonged standing and/or dangling of legs. When seated, feet should be elevated at chest level. Frequent ambulation is encouraged. Diet: Patient encouraged to increase protein intake while taking caution to avoid high carbohydrate and/or sugar intake. Labs/cultures/imaging: Vascular testing ordered to evaluate for arterial and venous disease showed incompetence of accessory saphenous veins b/l and normal arterial studies except decreased at level of great toe. Follow-up: Return in 1 week for wound care follow up. Return sooner or report tothe emergency room should symptoms worsen, or new symptoms arise. Note: [employer] speech recognition auto motor mechanic software was used to create portions of this document. Sound-alike and misspelled words, as well as other auto motor mechanic errors may be contained in the documentation. 09/05/22 1405 <Electronically signed by Nisha Magallon DO> Cosigner Signature (if applicable): CC: ~ Signed [facility] Work Phone: [phone] 650-316203-27-2023 Miscellaneous Notes* Telephone Encounter - Pema Nayak - 09/01/2022 3:18 PM EDT Left VM relaying the info below. ===View-only below this line=== ----- Message ----- From: Herminia Carrera APRN.CNP Sent: 09/01/2022 1:05 PM EDT To: Pema Nayak So her last CTA was in April and was stable. How about we plan to repeat her scan this April and she can see Dr. Darby in [place] at that time? If OK with pt ----- Message ----- From: Pema Nayak Sent: 08/27/2022 12:25 PM EDT To: Herminia Carrera APRN.CNP, * /Nila Pt. She called wanting to schedule for a f/up, is there additional testing that needs done AND can she do a virtual/phone visit? [facility] Magallon [facility] August 22, 2022 1:45pm Note Date/Time August 22, 2022 1:4 5pm [facility] [address] [place] [id number] Progress Note - Wound Care 08/22/22 1341 MR#: [id number] Acct: [id number] Name: KANDI CORREIA Rep #:[id number] : 1945 76 From: Nisha Magallon DO PCP: Dr. Jalyn Smith MD Status:REG R CR Location: History of Present Illness Date of Service: 08/22/22 Chief Complaint: Venous leg ulcer left lower extremity and right lower extremity History of Wound: This is a 76-year-old white female who presents to the wound healing center today with complaint of nonhealing ulceration of her right and left lower extremities. She has a past medical history significant for chronic hypoxia on supplemental O2, COPD, type 2 diabetes mellitus, CHF, and osteoarthritis of the bilateral knees and GERD. The patient states that her wounds initially occurred after scratching the back of her leg on something almost a month ago. She saw her PCP last week and was started on Cephalexin QID x 10 days. She was 2 days left of treatment. She has not had any improvement in her pain or ulcers since starting the antibiotic. Shehas been applying triple antibiotic ointment covering with gauze for the last few days but had been using hydrogel and nonadherent dressings prior to that. She states that she has not been utilizing any compression due to pain but has been elevating her legs more frequently and using a wedge pillow. She denies any systemic or localized signs of infection at this time. Denies any prior cultures being taken. 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 Progress of Wound: She tolerated treatment with Epifix to the right posterior calf. Left posterior calf also improved and tolerating treatment with Santyl. 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 Objective Data Objective Data Vital Signs: Vital Signs Temp Pulse Resp BP O2 Del Method O2 Flow Rate 97.1 F L 78 20 H 150/80 H Nasal Cannula 2 08/22/22 09:04 08/22/22 09:04 08/22/22 09:04 08/22/22 09:04 08/15/22 08:39 08/15/22 08:39 Oxygen Flow Rate (L/min) 2 Oxygen Delivery Method Nasal Cannula Weight: 91.777 kg Body Mass Index (BMI) 34.7 Physical Exam Const alert, oriented x3 and no apparent distress General Appearance: cooperative and comfortable HEENT normocephalic and head/scalp atraumatic Resp normal respiratory effort Effort and Inspection: able to speak in complete sentences Cardio regular rate and regular rhythm Skin Wounds: wounds noted Wound Narrative: as in clinical panel Psych mental status grossly normal, thought process normal, cooperative and affect normal Debridement Note Debridement Note Wound debrided: right posterior LE Laterality: Right Type of Debridement: Excisional debridement Anesthesia Used: 4% Lidocaine Solution, 5% Lidocaine Gel and Cetacaine Depth: Down to and including healthy tissue and in the subcutaneous layer Percentage of wound debrided: 100 Instrument Used: 5mm curette Tissue Removed: Yellow slough, devitalized tissue Severity: Fat Layer Exposed Amount of bleeding with debridement: Mild Bleeding Controlled with: Compression and gauze Patient tolerated procedure: Patient tolerated procedure well Post-Debridement Measurements and Additional Note: Post-Debridement Measurements/Treatment DASH - Nurse 1 - General Ulcer Assessment Start: 08/08/22 08:59 Freq: Status: Active Protocol: WC.LOWEXT Activity Type Activity Date Activity User E-sign Co-sign Detail Recorded Client Recorded Date Recorded By Document 08/08/22 08:59 DL [id number] 08/08/22 09:08 DL Document 08/15/22 08:39 [facility] [id number] 08/15/22 08:45 BMF Document 08/22/22 09:04 DL [id number] 08/22/22 09:14 DL 08/08/22 08/15/22 08/22/22 08:59 08:39 09:04 WC - Today's Visit Information Type of service Follow-up Visit Follow-up Visit Follow-up Visit (Physician/REFINERY OPERATOR HELPER (Physician/REFINERY OPERATOR HELPER (Physician/REFINERY OPERATOR HELPER ) ) ) Arrival Mode Ambulatory, Ambulatory, Ambulatory, Walker Walker Walker Transfer Assistance None None None Accompanied by daughter Patient Identification Verified (Name & Yes Yes Yes ) Patient Requires Transmission-Based No No No Precautions Finger Stick Blood Sugar(mg/dl) (if didnt check indicated): Blood Sugar Stated by Patient Height and Weight Body Mass Index (BMI) 34.7 34.7 34.7 BMI Classification Obese Obese Obese Vital Signs Temperature (97.8 F-99.1 F) 98.1 F 96.8 F L 97.1 F L Temperature Source Temporal Temporal Temporal Pulse Rate (60-100) 67 60 78 Pulse Location Monitor Monitor Monitor Respiratory Rate (12-18) 22 H 18 20 H Respiratory rate source Observation Observation Observation Oxygen Delivery Method Nasal Cannula O2 L/MIN (L/min) 2 Blood Pressure (90/60-120/80) 155/84 H 168/79 H 150/80 H Blood Pressure Mean (mm Hg) 107 108 103 Source Monitor Monitor Monitor Position Sitting Blood Pressure Location Left Arm History Since Last Visit- (Skip if this is Patient's initial visit) Have you changed medications since your No No last visit? Any new allergies or adverse reactions No No No Had a fall/change in ADL's that may No No No increase risk of falls Signs or symptoms of abuse and/or No No No neglect since last visit Have you been in the hospital since your No No No last visit? Has dressing in place as prescribed No Yes Yes Has compression in place as prescribed Yes N/A Yes Has offloadiing in place as prescribed N/A N/A N/A Experienced any changes in pain level or No No management Left Footwear Regular Shoe Right Footwear Regular Shoe Pain Scale: 0-10 Numeric Is Patient Pain Free? Yes Yes Yes WC - Nurse 1 - General Ulcer Measurement Start: 08/08/22 08:59 Freq: Status: Active Protocol: Activity Type Activity Date Activity User E-sign Co-sign Detail Recorded Client Recorded Date Recorded By Document 08/08/22 08:59 DL [id number] 08/08/22 09:08 DL Document 08/15/22 08:39 BMF [id number] 08/15/22 08:45 BMF Document 08/22/22 09:04 DL [id number] 08/22/22 09:14 DL 08/08/22 08/15/22 08/22/22 08:59 08:39 09:04 Wound Center Nurse 1 #3 L POST LE -Combined with other wound No -Current Size (cm) - Length 3.7 3.4 2.7 -Current Size (cm) - Width 1 0.7 0.6 -Current Size (cm) - Depth 0.2 0.2 0.1 -Total Square Cm 3.7 2.38 1.62 -Photo Taken Yes Yes -Epithelialization None Present -Tunneling No -Undermining/Tunneling No -Circular Undermining No -Exudate Amt Medium Medium Medium -Exudate Type Serosanguineous Serosanguineous Serosanguineous -Wound Margin Distinct, Distinct, Distinct, Outline Outline Outline Attached Attached Attached -Granulation Amt None Present (0 Large (67-100%) Medium (34-66%) %) -Granulation Quality [place] -Slough/Fibrin Yes -Necrosis Amt Large (67-100%) Small (1-33%) Medium (34-66%) -Necrotic Tissue Type Adherent Slough Adherent Slough Adherent Slough -Structure Exposed N/A N/A -Texture (Leticia-wound Skin Appearance) Scarring Assessed, Localized Edema Scarring ,Scarring -Moisture (Leticia-wound Skin Appearance) No Abnormality Assessed No Abnormality -Color (Leticia-wound Skin Appearance) Erythema, Assessed, Erythema Hemosiderin Erythema Staining -Temperature (Leticia-wound Skin No Abnormality No Abnormality No Abnormality Appearance) (Pt Warm) (Pt Warm) (Pt Warm) -Tenderness on Palpation (Leticia-wound No No No Skin Appearance) -Ulcer Cleansing Soap and Water Rinsed/ Soap and Water Irrigated with Saline -Foul Odor after Cleansing No No No -Anesthetic Used 5% Lidocaine 5% Lidocaine 5% Lidocaine Gel Gel Gel #2 R POST LE -Combined with other wound No -Current Size (cm) - Length 3.1 2.8 2.7 -Current Size (cm) - Width 5.4 5 0.6 -Current Size (cm) - Depth 1 0.1 0.1 -Total Square Cm 16.74 14.0 1.62 -Photo Taken Yes No Yes -Epithelialization None Present -Tunneling No -Undermining/Tunneling No -Circular Undermining No -Exudate Amt Medium Medium -Exudate Type Serous Serosanguineous Serosanguineous -Wound Margin Distinct, Distinct, Distinct, Outline Outline Outline Attached Attached Attached -Granulation Amt None Present (0 Small (1-33%) Medium (34-66%) %) -Granulation Quality [place] -Slough/Fibrin Yes -Necrosis Amt Large (67-100%) Large (67-100%) Medium (34-66%) -Necrotic Tissue Type Adherent Slough Adherent Slough Eschar -Structure Exposed N/A N/A -Texture (Leticia-wound Skin Appearance) Scarring Assessed, Localized Edema Scarring ,Scarring -Moisture (Leticia-wound Skin Appearance) No Abnormality Assessed No Abnormality -Color (Leticia-wound Skin Appearance) Erythema, Assessed, Erythema Hemosiderin Erythema Staining -Temperature (Leticia-wound Skin No Abnormality No Abnormality No Abnormality Appearance) (Pt Warm) (Pt Warm) (Pt Warm) -Tenderness on Palpation (Leticia-wound No No Yes Skin Appearance) -Ulcer Cleansing Soap and Water Rinsed/ Soap and Water Irrigated with Saline -Foul Odor after Cleansing No No No -Anesthetic Used 5% Lidocaine 5% Lidocaine 5% Lidocaine Gel Gel Gel Lower Limb Edema Present Yes Right Calf (cm) 39.4 40.8 38.5 Right Ankle (cm) 23.7 23 22.5 Left Calf (cm) 43.6 42 39.7 Left Ankle (cm) 22.5 23 21.5 WC - Nurse 2 - General Ulcer CM Notes Start: 08/08/22 08:59 Freq: Status: Active Protocol: Activity Type Activity Date Activity User E-sign Co-sign Detail Recorded Client Recorded Date Recorded By Document 08/08/22 09:38 MW [id number] 08/08/22 10:13 MW Document 08/15/22 08:54 BMF [id number] 08/15/22 09:17 BMF Edit Result 08/15/22 08:54 BMF (1) [id number] 08/15/22 12:45 PL Edit Result 08/15/22 08:54 BMF (2) [id number] 08/18/22 07:11 PL Document 08/22/22 09:28 MW [id number] 08/22/22 09:50 MW (1) #3 L POST LE - Debridement - Subq, 1st 20sq cm No => Yes - Debridement, SubQ, ea addt'l 20sq cm => 1 or part thereof #2 R POST LE - Debridement - Subq, 1st 20sq cm Yes => No - Debridement, SubQ, ea addt'l 20sq cm 1 => or part thereof (2) #2 R POST LE - Apply Skin Sub - 1st 25 sq cm - Legs => 1 08/08/22 08/15/22 08/22/22 09:38 08:54 09:28 Wound Center Nurse 2 #3 L POST LE -Time 09:39 08:57 09:29 -Correct Patient Yes Yes Yes -Correct Side, Site, Position Yes Yes Yes -Correct Procedure Yes Yes Yes -Procedure Performed Yes Yes Yes -Type of Procedure Debridement Debridement Debridement -Clinical Debridement Subcutaneous Subcutaneous Subcutaneous -Tissue Removed Subcutaneous Subcutaneous Subcutaneous -Post Debridement (cm) - Length 3.2 3.1 2.7 -Post Debridement (cm) - Width 0.8 0.9 0.8 -Post Debridement (cm) - Depth 0.2 0.1 0.1 -Total Square (Post) (cm) 2.56 2.79 2.16 -Area of Debridement (cm) - Length 3.2 3.1 2.7 -Area of Debridement (cm) - Width 0.8 0.9 0.8 -Total Square (Area) (cm) 2.56 2.79 2.16 -Tunneling No No No -Undermining/Tunneling No No No -Circular Undermining No No No -Wound/Ulcer Outcome Not Healed Not Healed -Ulcer Cleansing Rinsed/ Rinsed/ Rinsed/ Irrigated with Irrigated with Irrigated with Saline Saline Saline -Foul Odor after Cleansing No No No -Bioengineered Tissue No No No -Bleeding Controlled with Pressure Pressure Pressure -Treatment Response Procedure Procedure Procedure Tolerated Well Tolerated Well Tolerated Well -Offloading No No -Debridement - Subq, 1st 20sq cm Yes Yes No -Debridement, SubQ, ea addt'l 20sq cm 1 or part thereof #2 R POST LE -Time 09:39 09:01 09:32 -Correct Patient Yes Yes Yes -Correct Side, Site, Position Yes Yes Yes -Correct Procedure Yes Yes Yes -Procedure Performed Yes Yes Yes -Type of Procedure Debridement Debridement Debridement -Clinical Debridement Subcutaneous Subcutaneous Subcutaneous -Tissue Removed Subcutaneous Subcutaneous Subcutaneous -Post Debridement (cm) - Length 3.0 3.0 2.7 -Post Debridement (cm) - Width 5.5 4.5 4.7 -Post Debridement (cm) - Depth 0.2 0.1 0.1 -Total Square (Post) (cm) 16.50 13.50 12.69 -Area of Debridement (cm) - Length 3.0 3.0 2.7 -Area of Debridement (cm) - Width 5.5 4.5 4.7 -Total Square (Area) (cm) 16.50 13.50 12.69 -Tunneling No No No -Undermining/Tunneling No No No -Circular Undermining No No No -Wound/Ulcer Outcome Not Healed Not Healed -Ulcer Cleansing Rinsed/ Rinsed/ Rinsed/ Irrigated with Irrigated with Irrigated with Saline Saline Saline -Foul Odor after Cleansing No No No -Bioengineered Tissue No Yes Yes -Type of Bioengineered Tissue Epifix Mesh Epifix Mesh -Expiration Date 03/08/27 05/08/27 -Product Lot Number [id number] -Percent Used 100 100 -Lot number of Saline Used [id number] -Topical Lidocaine (%) 5 -Bleeding Controlled with Pressure Pressure Pressure -Treatment Response Procedure Procedure Procedure Tolerated Well Tolerated Well Tolerated Well -Offloading No No -Debridement - Subq, 1st 20sq cm No No No -Apply Skin Sub - 1st 25 sq cm - Legs 1 1 -Epifix Mesh (per sq cm) 11 11 Pain Scale: 0-10 Numeric Is Patient Pain Free? Yes Yes Yes - Nurse 3 - General Ulcer D/C NN Start: 08/08/22 08:59 Freq: Status: Active Protocol: Activity Type Activity Date Activity User E-sign Co-sign Detail Recorded Client Recorded Date Recorded By Document 08/08/22 10:26 DL [id number] 08/08/22 10:34 DL Document 08/15/22 09:28 ML [id number] 08/15/22 09:29 ML Document 08/22/22 10:09 RB [id number] 08/22/22 10:11 RB 08/08/22 08/15/22 08/22/22 10:26 09:28 10:09 Wound Care Center Nurse 3 #3 L POST LE -Ulcer Cleansing Rinsed/ Irrigated with Saline -Foul Odor after Cleansing No -Primary Dressing Applied NonAdherent Mepilex Border Mepilex Border Contact Layer, Mepilex Border -Other Dressing hydrogel epifix -Mepilex Border 1 1 1 #2 R POST LE -Ulcer Cleansing Rinsed/ Irrigated with Saline -Foul Odor after Cleansing No -Primary Dressing Applied Mepilex Border Mepilex Border Mepilex Border -Other Dressing hydrogel -Other Covering epifix -Mepilex Border 1 1 1 bilateral -Other circaid Treatment Response Procedure Procedure Tolerated Well Tolerated Well Pain Scale: 0-10 Numeric Is Patient Pain Free? Yes Yes Yes - Visit Discharge Discharge Condition Stable Stable Ambulatory Status Ambulatory, Ambulatory Walker Transportation Private Auto Private Auto Medication Reconcilliation completed & No provided to patient/care provider Clinical Summary of Care Provided Yes Additional Wound Wound debrided: left posterior LE Laterality: Left Type of Debridement: Excisional debridement Anesthesia Used: 4% Lidocaine Solution, 5% Lidocaine Gel and Cetacaine Depth: Down to and including healthy tissue and in the subcutaneous layer Percentage of wound debrided: 100 Instrument Used: 5mm curette Tissue Removed: Yellow slough, devitalized tissue Severity: Fat Layer Exposed Amount of bleeding with debridement: Mild Bleeding Controlled with: Compression and gauze Patient tolerated procedure: Patient tolerated procedure well Assessment/Plan Assessment/Plan (1) Venous stasis ulcer of left lower leg with edema of left lower leg: CODE(S): I83.029 - Varicose veins of left lower extremity with ulcer of unspecified site; I83.892 - Varicose veins of left lower extremity with other complications; L97.929 - Non-pressure chronic ulcer of unspecified part of left lower leg with unspecified severity; R60.9 - Edema, unspecified (2) Diabetes mellitus: CODE(S): E11.9 - Type 2 diabetes mellitus without complications QUALIFIERS: Diabetes mellitus type: type 2 Diabetes mellitus fdc insulin use: without fpc use Diabetes mellitus complication status: with neurologic complications Diabetes mellitus complication detail: with polyneuropathy Qualified Code(s): E11.42 - Type 2 diabetes mellitus with diabetic polyneuropathy (3) Chronic obstructive pulmonary disease: CODE(S): J44.9 - Chronic obstructive pulmonary disease, unspecified QUALIFIERS: COPD type: unspecified COPD Qualified Code(s): J44.9 - Chronic obstructive pulmonary disease, unspecified (4) Hypertension: CODE(S): I10 - Essential (primary) hypertension QUALIFIERS: Hypertension type: primary hypertension Qualified Code(s): I10 - Essential (primary) hypertension (5) 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: CODE(S): I83.019 - Varicose veins of right lower extremity with ulcer of unspecified site; L97.919 - Non-pressure chronic ulcer of unspecified part of right lower leg with unspecified severity (6) Nonhealing ulcer of left lower extremity with fat layer exposed: CODE(S): L97.922 - Non-pressure chronic ulcer of unspecified part of left lower leg with fat layer exposed (7) Nonhealing ulcer of right lower extremity with fat layer exposed: CODE(S): L97.912 - Non-pressure chronic ulcer of unspecified part of rightlower leg with fat layer exposed (8) Supplemental oxygen dependent: CODE(S): Z99.81 - Dependence on supplemental oxygen PLAN: Plan Debridement performed today in clinic as annotated above. At home wound-care instructions: Epifix #2 applied to her right posterior LE ulcer today per operations architect guidelines using 100% of product, rehydrated with hydrogel and covered with adaptic touch and secured with steristrips. She will not change the dressing on this for 1 week unless there is drainage and then would change silicone foam dressing. Will have her continue Santyl and adaptic to left ulcer daily. She will cover with silicone bordered foam dressing. Keep dressing clean and dry. Off-loading: The patient was instructed to avoid pressure and friction on the affected areas. Reposition every 2 hours at minimum. Avoid prolonged standing and/or dangling of legs. When seated, feet should be elevated at chest level. Frequent ambulation is encouraged. Diet: Patient encouraged to increase protein intake while taking caution to avoid high carbohydrate and/or sugar intake. Labs/cultures/imaging: Vascular testing ordered to evaluate for arterial and venous disease showed incompetence of accessory saphenous veins b/l and normal arterial studies except decreased at level of great toe. Follow-up: Return in 1 week for wound care follow up. Return sooner or report tothe emergency room should symptoms worsen, or new symptoms arise. Note: [employer] speech recognition auto motor mechanic software was used to create portions of this document. Sound-alike and misspelled words, as well as other auto motor mechanic errors may be contained in the documentation. 08/22/22 1345 <Electronically signed by Nisha Magallon DO> Cosigner Signature (if applicable): CC: ~ Signed [facility] Work Phone: [phone]) 891-469903-10-[address] Magallon [facility] August 15, 2022 12:50pm Note Date/Time August 15, 2022 11: 58am [facility] [address] [place] [id number] Progress Note - Wound Care 08/15/22 1157 MR#: [id number] Acct: [id number] Name: KANDI CORREIA Rep #:[id number] : 1945 76 From: Nisha Magallon DO PCP: Dr. Jalyn Smith MD Status:REG R CR Location: History of Present Illness Date of Service: 08/15/22 Chief Complaint: Venous leg ulcer left lower extremity and right lower extremity History of Wound: This is a 76-year-old white female who presents to the wound healing center today with complaint of nonhealing ulceration of her right and left lower extremities. She has a past medical history significant for chronic hypoxia on supplemental O2, COPD, type 2 diabetes mellitus, CHF, and osteoarthritis of the bilateral knees and GERD. The patient states that her wounds initially occurred after scratching the back of her leg on something almost a month ago. She saw her PCP last week and was started on Cephalexin QID x 10 days. She was 2 days left of treatment. She has not had any improvement in her pain or ulcers since starting the antibiotic. Shehas been applying triple antibiotic ointment covering with gauze for the last few days but had been using hydrogel and nonadherent dressings prior to that. She states that she has not been utilizing any compression due to pain but has been elevating her legs more frequently and using a wedge pillow. She denies any systemic or localized signs of infection at this time. Denies any prior cultures being taken. 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 Progress of Wound: She tolerated treatment with Santyl to both ulcers with adaptic. 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 Objective Data Objective Data Vital Signs: Vital Signs Temp Pulse Resp BP O2 Del Method O2 Flow Rate 96.8 F L 60 18 168/79 H Nasal Cannula 2 08/15/22 08:39 08/15/22 08:39 08/15/22 08:39 08/15/22 08:39 08/15/22 08:39 08/15/22 08:39 Oxygen Flow Rate (L/min) 2 Oxygen Delivery Method Nasal Cannula Weight: 91.777 kg Body Mass Index (BMI) 34.7 Physical Exam Const alert, oriented x3 and no apparent distress General Appearance: cooperative and comfortable HEENT normocephalic and head/scalp atraumatic Resp normal respiratory effort Effort and Inspection: able to speak in complete sentences Cardio regular rate and regular rhythm Skin Wounds: wounds noted Wound Narrative: as in clinical panel Psych mental status grossly normal, thought process normal, cooperative and affect normal Debridement Note Debridement Note Wound debrided: right posterior LE Laterality: Right Type of Debridement: Excisional debridement Anesthesia Used: 4% Lidocaine Solution, 5% Lidocaine Gel and Cetacaine Depth: Down to and including healthy tissue and in the subcutaneous layer Percentage of wound debrided: 100 Instrument Used: 5mm curette Tissue Removed: Yellow slough, devitalized tissue Severity: Fat Layer Exposed Amount of bleeding with debridement: Mild Bleeding Controlled with: Compression and gauze Patient tolerated procedure: Patient tolerated procedure well Post-Debridement Measurements and Additional Note: Post-Debridement Measurements/Treatment WC - Nurse 1 - General Ulcer Assessment Start: 08/08/22 08:59 Freq: Status: Active Protocol: CHING Activity Type Activity Date Activity User E-sign Co-sign Detail Recorded Client Recorded Date Recorded By Document 08/08/22 08:59 DL [id number] 08/08/22 09:08 DL Document 08/15/22 08:39 [facility] [id number] 08/15/22 08:45 BM 08/08/22 08/15/22 08:59 08:39 - Today's Visit Information Type of service Follow-up Visit Follow-up Visit (Physician/REFINERY OPERATOR HELPER (Physician/REFINERY OPERATOR HELPER ) ) Arrival Mode Ambulatory, Ambulatory, Walker Walker Transfer Assistance None None Accompanied by daughter Patient Identification Verified (Name & Yes Yes ) Patient Requires Transmission-Based No No Precautions Finger Stick Blood Sugar(mg/dl) (if didnt check indicated): Blood Sugar Stated by Patient Height and Weight Body Mass Index (BMI) 34.7 34.7 BMI Classification Obese Obese Vital Signs Temperature (97.8 F-99.1 F) 98.1 F 96.8 F L Temperature Source Temporal Temporal Pulse Rate (60-100) 67 60 Pulse Location Monitor Monitor Respiratory Rate (12-18) 22 H 18 Respiratory rate source Observation Observation Oxygen Delivery Method Nasal Cannula O2 L/MIN (L/min) 2 Blood Pressure (90/60-120/80) 155/84 H 168/79 H Blood Pressure Mean (mm Hg) 107 108 Source Monitor Monitor Position Sitting Blood Pressure Location Left Arm History Since Last Visit- (Skip if this is Patient's initial visit) Have you changed medications since your No last visit? Any new allergies or adverse reactions No No Had a fall/change in ADL's that may No No increase risk of falls Signs or symptoms of abuse and/or No No neglect since last visit Have you been in the hospital since your No No last visit? Has dressing in place as prescribed No Yes Has compression in place as prescribed Yes N/A Has offloadiing in place as prescribed N/A N/A Experienced any changes in pain level or No No management Left Footwear Regular Shoe Right Footwear Regular Shoe Pain Scale: 0-10 Numeric Is Patient Pain Free? Yes Yes - Nurse 1 - General Ulcer Measurement Start: 03/03/23 08:59 Freq: Status: Active Protocol: Activity Type Activity Date Activity User E-sign Co-sign Detail Recorded Client Recorded Date Recorded By Document 08/08/22 08:59 DL [id number] 08/08/22 09:08 DL Document 08/15/22 08:39 [facility] [id number] 08/15/22 08:45 [facility] 08/08/22 08/15/22 08:59 08:39 Wound Center Nurse 1 #3 L POST LE -Combined with other wound No -Current Size (cm) - Length 3.7 3.4 -Current Size (cm) - Width 1 0.7 -Current Size (cm) - Depth 0.2 0.2 -Total Square Cm 3.7 2.38 -Photo Taken Yes -Epithelialization None Present -Tunneling No -Undermining/Tunneling No -Circular Undermining No -Exudate Amt Medium Medium -Exudate Type Serosanguineous Serosanguineous -Wound Margin Distinct, Distinct, Outline Outline Attached Attached -Granulation Amt None Present (0 Large (67-100%) %) -Granulation Quality Red -Slough/Fibrin Yes -Necrosis Amt Large (67-100%) Small (1-33%) -Necrotic Tissue Type Adherent Slough Adherent Slough -Structure Exposed N/A -Texture (Leticia-wound Skin Appearance) Scarring Assessed, Scarring -Moisture (Leticia-wound Skin Appearance) No Abnormality Assessed -Color (Leticia-wound Skin Appearance) Erythema, Assessed, Hemosiderin Erythema Staining -Temperature (Leticia-wound Skin No Abnormality No Abnormality Appearance) (Pt Warm) (Pt Warm) -Tenderness on Palpation (Leticia-wound No No Skin Appearance) -Ulcer Cleansing Soap and Water Rinsed/ Irrigated with Saline -Foul Odor after Cleansing No No -Anesthetic Used 5% Lidocaine 5% Lidocaine Gel Gel #2 R POST LE -Combined with other wound No -Current Size (cm) - Length 3.1 2.8 -Current Size (cm) - Width 5.4 5 -Current Size (cm) - Depth 1 0.1 -Total Square Cm 16.74 14.0 -Photo Taken Yes No -Epithelialization None Present -Tunneling No -Undermining/Tunneling No -Circular Undermining No -Exudate Amt Medium -Exudate Type Serous Serosanguineous -Wound Margin Distinct, Distinct, Outline Outline Attached Attached -Granulation Amt None Present (0 Small (1-33%) %) -Granulation Quality Red -Slough/Fibrin Yes -Necrosis Amt Large (67-100%) Large (67-100%) -Necrotic Tissue Type Adherent Slough Adherent Slough -Structure Exposed N/A -Texture (Leticia-wound Skin Appearance) Scarring Assessed, Scarring -Moisture (Leticia-wound Skin Appearance) No Abnormality Assessed -Color (Leticia-wound Skin Appearance) Erythema, Assessed, Hemosiderin Erythema Staining -Temperature (Leticia-wound Skin No Abnormality No Abnormality Appearance) (Pt Warm) (Pt Warm) -Tenderness on Palpation (Leticia-wound No No Skin Appearance) -Ulcer Cleansing Soap and Water Rinsed/ Irrigated with Saline -Foul Odor after Cleansing No No -Anesthetic Used 5% Lidocaine 5% Lidocaine Gel Gel Lower Limb Edema Present Yes Right Calf (cm) 39.4 40.8 Right Ankle (cm) 23.7 23 Left Calf (cm) 43.6 42 Left Ankle (cm) 22.5 23 WC - Nurse 2 - General Ulcer CM Notes Start: 08/08/22 08:59 Freq: Status: Active Protocol: Activity Type Activity Date Activity User E-sign Co-sign Detail Recorded Client Recorded Date Recorded By Document 08/08/22 09:38 MW [id number] 08/08/22 10:13 MW Document 08/15/22 08:54 [facility] [id number] 08/15/22 09:17 BM 08/08/22 08/15/22 09:38 08:54 Wound Center Nurse 2 #3 L POST LE -Time 09:39 08:57 -Correct Patient Yes Yes -Correct Side, Site, Position Yes Yes -Correct Procedure Yes Yes -Procedure Performed Yes Yes -Type of Procedure Debridement Debridement -Clinical Debridement Subcutaneous Subcutaneous -Tissue Removed Subcutaneous Subcutaneous -Post Debridement (cm) - Length 3.2 3.1 -Post Debridement (cm) - Width 0.8 0.9 -Post Debridement (cm) - Depth 0.2 0.1 -Total Square (Post) (cm) 2.56 2.79 -Area of Debridement (cm) - Length 3.2 3.1 -Area of Debridement (cm) - Width 0.8 0.9 -Total Square (Area) (cm) 2.56 2.79 -Tunneling No No -Undermining/Tunneling No No -Circular Undermining No No -Wound/Ulcer Outcome Not Healed -Ulcer Cleansing Rinsed/ Rinsed/ Irrigated with Irrigated with Saline Saline -Foul Odor after Cleansing No No -Bioengineered Tissue No No -Bleeding Controlled with Pressure Pressure -Treatment Response Procedure Procedure Tolerated Well Tolerated Well -Offloading No -Debridement - Subq, 1st 20sq cm Yes No #2 R POST LE -Time 09:39 09:01 -Correct Patient Yes Yes -Correct Side, Site, Position Yes Yes -Correct Procedure Yes Yes -Procedure Performed Yes Yes -Type of Procedure Debridement Debridement -Clinical Debridement Subcutaneous Subcutaneous -Tissue Removed Subcutaneous Subcutaneous -Post Debridement (cm) - Length 3.0 3.0 -Post Debridement (cm) - Width 5.5 4.5 -Post Debridement (cm) - Depth 0.2 0.1 -Total Square (Post) (cm) 16.50 13.50 -Area of Debridement (cm) - Length 3.0 3.0 -Area of Debridement (cm) - Width 5.5 4.5 -Total Square (Area) (cm) 16.50 13.50 -Tunneling No No -Undermining/Tunneling No No -Circular Undermining No No -Wound/Ulcer Outcome Not Healed -Ulcer Cleansing Rinsed/ Rinsed/ Irrigated with Irrigated with Saline Saline -Foul Odor after Cleansing No No -Bioengineered Tissue No Yes -Type of Bioengineered Tissue Epifix Mesh -Expiration Date 03/08/27 -Product Lot Number [id number] -Percent Used 100 -Lot number of Saline Used [id number] -Topical Lidocaine (%) 5 -Bleeding Controlled with Pressure Pressure -Treatment Response Procedure Procedure Tolerated Well Tolerated Well -Offloading No -Debridement - Subq, 1st 20sq cm No Yes -Debridement, SubQ, ea addt'l 20sq cm 1 or part thereof -Epifix Mesh (per sq cm) 11 Pain Scale: 0-10 Numeric Is Patient Pain Free? Yes Yes WC - Nurse 3 - General Ulcer D/C NN Start: 08/08/22 08:59 Freq: Status: Active Protocol: Activity Type Activity Date Activity User E-sign Co-sign Detail Recorded Client Recorded Date Recorded By Document 08/08/22 10:26 DL [id number] 08/08/22 10:34 DL Document 08/15/22 09:28 ML [id number] 08/15/22 09:29 ML 08/08/22 08/15/22 10:26 09:28 Wound Care Center Nurse 3 #3 L POST LE -Ulcer Cleansing Rinsed/ Irrigated with Saline -Foul Odor after Cleansing No -Primary Dressing Applied NonAdherent Mepilex Border Contact Layer, Mepilex Border -Other Dressing hydrogel epifix -Mepilex Border 1 1 #2 R POST LE -Ulcer Cleansing Rinsed/ Irrigated with Saline -Foul Odor after Cleansing No -Primary Dressing Applied Mepilex Border Mepilex Border -Other Dressing hydrogel -Other Covering epifix -Mepilex Border 1 1 Treatment Response Procedure Tolerated Well Pain Scale: 0-10 Numeric Is Patient Pain Free? Yes Yes WC - Visit Discharge Discharge Condition Stable Ambulatory Status Ambulatory, Walker Transportation Private Auto Additional Wound Wound debrided: left posterior LE Laterality: Left Type of Debridement: Excisional debridement Anesthesia Used: 4% Lidocaine Solution, 5% Lidocaine Gel and Cetacaine Depth: Down to and including healthy tissue and in the subcutaneous layer Percentage of wound debrided: 100 Tissue Removed: Yellow slough, devitalized tissue Severity: Fat Layer Exposed Amount of bleeding with debridement: Mild Bleeding Controlled with: Compression and gauze Patient tolerated procedure: Patient tolerated procedure well Assessment/Plan Assessment/Plan (1) Venous stasis ulcer of left lower leg with edema of left lower leg: CODE(S): I83.029 - Varicose veins of left lower extremity with ulcer of unspecified site; I83.892 - Varicose veins of left lower extremity with other complications; L97.929 - Non-pressure chronic ulcer of unspecified part of left lower leg with unspecified severity; R60.9 - Edema, unspecified (2) Diabetes mellitus: CODE(S): E11.9 - Type 2 diabetes mellitus without complications QUALIFIERS: Diabetes mellitus type: type 2 Diabetes mellitus fdc insulin use: without long term care administrator use Diabetes mellitus complication status: with neurologic complications Diabetes mellitus complication detail: with polyneuropathy Qualified Code(s): E11.42 - Type 2 diabetes mellitus with diabetic polyneuropathy (3) Chronic obstructive pulmonary disease: CODE(S): J44.9 - Chronic obstructive pulmonary disease, unspecified QUALIFIERS: COPD type: unspecified COPD Qualified Code(s): J44.9 - Chronic obstructive pulmonary disease, unspecified (4) Hypertension: CODE(S): I10 - Essential (primary) hypertension QUALIFIERS: Hypertension type: primary hypertension Qualified Code(s): I10 - Essential (primary) hypertension (5) 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: CODE(S): I83.019 - Varicose veins of right lower extremity with ulcer of unspecified site; L97.919 - Non-pressure chronic ulcer of unspecified part of right lower leg with unspecified severity (6) Nonhealing ulcer of left lower extremity with fat layer exposed: CODE(S): L97.922 - Non-pressure chronic ulcer of unspecified part of left lower leg with fat layer exposed (7) Nonhealing ulcer of right lower extremity with fat layer exposed: CODE(S): L97.912 - Non-pressure chronic ulcer of unspecified part of rightlower leg with fat layer exposed (8) Supplemental oxygen dependent: CODE(S): Z99.81 - Dependence on supplemental oxygen PLAN: Plan Debridement performed today in clinic as annotated above. At home wound-care instructions: Epifix applied to her right posterior LE ulcer today per operations architect guidelines using 100% of product, rehydrated with hydrogel and covered with adaptic touch and secired with steristrips. She will not change the dressing on this for 1 week unless there is drainage and then would change silicone foam dressing. Will have her continue Santyl and adaptic to left ulcer daily. She will cover with silicone bordered foam dressing. Keep dressing clean and dry. Off-loading: The patient was instructed to avoid pressure and friction on the affected areas. Reposition every 2 hours at minimum. Avoid prolonged standing and/or dangling of legs. When seated, feet should be elevated at chest level. Frequent ambulation is encouraged. Diet: Patient encouraged to increase protein intake while taking caution to avoid high carbohydrate and/or sugar intake. Labs/cultures/imaging: Vascular testing ordered to evaluate for arterial and venous disease showed incompetence of accesory saphenous veins b/l and normal arterial studies except decreased at level of great toe. Follow-up: Return in 1 week for wound care follow up. Return sooner or report tothe emergency room should symptoms worsen, or new symptoms arise. Note: [employer] speech recognition auto motor mechanic software was used to create portions of this document. Sound-alike and misspelled words, as well as other auto motor mechanic errors may be contained in the documentation. 08/15/22 1250 <Electronically signed by Nisha Magallon DO> Cosigner Signature (if applicable): CC: ~ Signed [facility] Work Phone: 1(244) 101-210203-03-[address] Magallon [facility] August 08, 2022 1:58pm Note Date/Time August 08, 2022 1:48 pm [facility] [address] [place] [address] Progress Note - Wound Care 08/08/22 1235 MR#: [id number] Acct: [id number] Name: KANDI CORREIA Rep #:[id number] : 1945 76 From: Nisha Magallon DO PCP: Dr. Jalyn Smith MD Status:REG R CR Location: History of Present Illness Date of Service: 08/08/22 Chief Complaint: Venous leg ulcer left lower extremity and right lower extremity History of Wound: This is a 76-year-old white female who presents to the wound healing center today with complaint of nonhealing ulceration of her right and left lower extremities. She has a past medical history significant for chronic hypoxia on supplemental O2, COPD, type 2 diabetes mellitus, CHF, and osteoarthritis of the bilateral knees and GERD. The patient states that her wounds initially occurred after scratching the back of her leg on something almost a month ago. She saw her PCP last week and was started on Cephalexin QID x 10 days. She was 2 days left of treatment. She has not had any improvement in her pain or ulcers since starting the antibiotic. Shehas been applying triple antibiotic ointment covering with gauze for the last few days but had been using hydrogel and nonadherent dressings prior to that. She states that she has not been utilizing any compression due to pain but has been elevating her legs more frequently and using a wedge pillow. She denies any systemic or localized signs of infection at this time. Denies any prior cultures being taken. Progress of Wound: She is tolerating treatment with Santyl to both ulcers with adaptic. She underwent vascular testing and has incompetence of accessory saphenous veins at thigh level bilaterally. Objective Data Objective Data Vital Signs: Vital Signs Temp Pulse Resp BP 98.1 F 67 22 H 155/84 H 08/08/22 08:59 08/08/22 08:59 08/08/22 08:59 08/08/22 08:59 Weight: 91.777 kg Body Mass Index (BMI) 34.7 Radiography Diagnostic Testing: Radiology Impression Venous Doppler Study 08/07/22 08:03 Interpretation Summary Deep veins of the lower extremities are bilaterally patent and compressible segmentally. There is no evidence of deep vein thrombosis on either side. Valvular competence appears intact within the proximal deep venous systems bilaterally. The great saphenous veins appear bilaterally patent and compressible segmentally. Sapheno-femoral junctions are bilaterally competent . Valvular competence appears to be intact segmentally within the great saphenous veins bilaterally. Small saphenous veins are patent and competent bilaterally. An accessory saphenous vein in the right proximal thigh is incompetent. An accessory saphenous vein in the left proximal thigh is incompetent. A non-vascular structure is noted in the popliteal spaces bilaterally, with dimensions as documented above. These probably represent popliteal cysts. Clinical correlation is advised. Ordering Physician: Nisha Magallon Performed By: Tez Alfred RVT Extremity Arterial Study 08/07/22 08:04 Interpretation Summary Triphasic Doppler waveforms are noted at ankle level bilaterally. Pulse-volume recordings appear diminished at digital level bilaterally, but satisfactory at all other levels bilaterally. Resting ankle-brachial indices are normal bilaterally. The right digital-brachial index is mildly diminished. The left digital-brachial index is normal. Arterial flow appears normal at ankle level bilaterally, and at digital level onthe left. There is evidence of mild arterial occlusive disease at digital level on the right. Ordering Physician: Nisha Magallon Performed By: Tez Alfred RVT Physical Exam Const alert, oriented x3 and no apparent distress General Appearance: cooperative and comfortable HEENT normocephalic and head/scalp atraumatic Resp normal respiratory effort Effort and Inspection: able to speak in complete sentences Cardio regular rate and regular rhythm Skin Wounds: wounds noted Wound Narrative: as in clinical panel Psych mental status grossly normal, thought process normal, cooperative and affect normal Debridement Note Debridement Note Wound debrided: right posterior LE Laterality: Right Type of Debridement: Excisional debridement Anesthesia Used: 4% Lidocaine Solution, 5% Lidocaine Gel and Cetacaine Depth: Down to and including healthy tissue and in the subcutaneous layer Percentage of wound debrided: 100 Instrument Used: 5mm curette Tissue Removed: Yellow slough, devitalized tissue Severity: Fat Layer Exposed Amount of bleeding with debridement: Mild Bleeding Controlled with: Compression and gauze Patient tolerated procedure: Patient tolerated procedure well Post-Debridement Measurements and Additional Note: Post-Debridement Measurements/Treatment - Nurse 1 - General Ulcer Assessment Start: 08/08/22 08:59 Freq: Status: Active Protocol: WC.LOWEXT Activity Type Activity Date Activity User E-sign Co-sign Detail Recorded Client Recorded Date Recorded By Document 08/08/22 08:59 DL [id number] 08/08/22 09:08 DL 08/08/22 08:59 - Today's Visit Information Type of service Follow-up Visit (Physician/REFINERY OPERATOR HELPER ) Arrival Mode Ambulatory, Walker Transfer Assistance None Patient Identification Verified (Name & Yes ) Patient Requires Transmission-Based No Precautions Finger Stick Blood Sugar(mg/dl) (if didnt check indicated): Blood Sugar Stated by Patient Height and Weight Body Mass Index (BMI) 34.7 BMI Classification Obese Vital Signs Temperature (97.8 F-99.1 F) 98.1 F Temperature Source Temporal Pulse Rate (60-100) 67 Pulse Location Monitor Respiratory Rate (12-18) 22 H Respiratory rate source Observation Blood Pressure (90/60-120/80) 155/84 H Blood Pressure Mean (mm Hg) 107 Source Monitor History Since Last Visit- (Skip if this is Patient's initial visit) Any new allergies or adverse reactions No Had a fall/change in ADL's that may No increase risk of falls Signs or symptoms of abuse and/or No neglect since last visit Have you been in the hospital since your No last visit? Has dressing in place as prescribed No Has compression in place as prescribed Yes Has offloadiing in place as prescribed N/A Experienced any changes in pain level or No management Pain Scale: 0-10 Numeric Is Patient Pain Free? Yes WC - Nurse 1 - General Ulcer Measurement Start: 08/08/22 08:59 Freq: Status: Active Protocol: Activity Type Activity Date Activity User E-sign Co-sign Detail Recorded Client Recorded Date Recorded By Document 08/08/22 08:59 DL [id number] 08/08/22 09:08 DL 08/08/22 08:59 Wound Center Nurse 1 #3 L POST LE -Current Size (cm) - Length 3.7 -Current Size (cm) - Width 1 -Current Size (cm) - Depth 0.2 -Total Square Cm 3.7 -Photo Taken Yes -Exudate Amt Medium -Exudate Type Serosanguineous -Wound Margin Distinct, Outline Attached -Granulation Amt None Present (0 %) -Necrosis Amt Large (67-100%) -Necrotic Tissue Type Adherent Slough -Structure Exposed N/A -Texture (Leticia-wound Skin Appearance) Scarring -Moisture (Leticia-wound Skin Appearance) No Abnormality -Color (Leticia-wound Skin Appearance) Erythema, Hemosiderin Staining -Temperature (Leticia-wound Skin No Abnormality Appearance) (Pt Warm) -Tenderness on Palpation (Leticia-wound No Skin Appearance) -Ulcer Cleansing Soap and Water -Foul Odor after Cleansing No -Anesthetic Used 5% Lidocaine Gel #2 R POST LE -Current Size (cm) - Length 3.1 -Current Size (cm) - Width 5.4 -Current Size (cm) - Depth 1 -Total Square Cm 16.74 -Photo Taken Yes -Exudate Amt Medium -Exudate Type Serous -Wound Margin Distinct, Outline Attached -Granulation Amt None Present (0 %) -Necrosis Amt Large (67-100%) -Necrotic Tissue Type Adherent Slough -Structure Exposed N/A -Texture (Leticia-wound Skin Appearance) Scarring -Moisture (Leticia-wound Skin Appearance) No Abnormality -Color (Leticia-wound Skin Appearance) Erythema, Hemosiderin Staining -Temperature (Leticia-wound Skin No Abnormality Appearance) (Pt Warm) -Tenderness on Palpation (Leticia-wound No Skin Appearance) -Ulcer Cleansing Soap and Water -Foul Odor after Cleansing No -Anesthetic Used 5% Lidocaine Gel Right Calf (cm) 39.4 Right Ankle (cm) 23.7 Left Calf (cm) 43.6 Left Ankle (cm) 22.5 WC - Nurse 2 - General Ulcer CM Notes Start: 08/08/22 08:59 Freq: Status: Active Protocol: Activity Type Activity Date Activity User E-sign Co-sign Detail Recorded Client Recorded Date Recorded By Document 08/08/22 09:38 MW [id number] 08/08/22 10:13 MW 08/08/22 09:38 Wound Center Nurse 2 #3 L POST LE -Time 09:39 -Correct Patient Yes -Correct Side, Site, Position Yes -Correct Procedure Yes -Procedure Performed Yes -Type of Procedure Debridement -Clinical Debridement Subcutaneous -Tissue Removed Subcutaneous -Post Debridement (cm) - Length 3.2 -Post Debridement (cm) - Width 0.8 -Post Debridement (cm) - Depth 0.2 -Total Square (Post) (cm) 2.56 -Area of Debridement (cm) - Length 3.2 -Area of Debridement (cm) - Width 0.8 -Total Square (Area) (cm) 2.56 -Tunneling No -Undermining/Tunneling No -Circular Undermining No -Wound/Ulcer Outcome Not Healed -Ulcer Cleansing Rinsed/ Irrigated with Saline -Foul Odor after Cleansing No -Bioengineered Tissue No -Bleeding Controlled with Pressure -Treatment Response Procedure Tolerated Well -Offloading No -Debridement - Subq, 1st 20sq cm Yes #2 R POST LE -Time 09:39 -Correct Patient Yes -Correct Side, Site, Position Yes -Correct Procedure Yes -Procedure Performed Yes -Type of Procedure Debridement -Clinical Debridement Subcutaneous -Tissue Removed Subcutaneous -Post Debridement (cm) - Length 3.0 -Post Debridement (cm) - Width 5.5 -Post Debridement (cm) - Depth 0.2 -Total Square (Post) (cm) 16.50 -Area of Debridement (cm) - Length 3.0 -Area of Debridement (cm) - Width 5.5 -Total Square (Area) (cm) 16.50 -Tunneling No -Undermining/Tunneling No -Circular Undermining No -Wound/Ulcer Outcome Not Healed -Ulcer Cleansing Rinsed/ Irrigated with Saline -Foul Odor after Cleansing No -Bioengineered Tissue No -Bleeding Controlled with Pressure -Treatment Response Procedure Tolerated Well -Offloading No -Debridement - Subq, 1st 20sq cm No Pain Scale: 0-10 Numeric Is Patient Pain Free? Yes - Nurse 3 - General Ulcer D/C NN Start: 08/08/22 08:59 Freq: Status: Active Protocol: Activity Type Activity Date Activity User E-sign Co-sign Detail Recorded Client Recorded Date Recorded By Document 08/08/22 10:26 DL [id number] 08/08/22 10:34 DL 08/08/22 10:26 Wound Care Center Nurse 3 #3 L POST LE -Ulcer Cleansing Rinsed/ Irrigated with Saline -Foul Odor after Cleansing No -Primary Dressing Applied NonAdherent Contact Layer, Mepilex Border -Other Dressing hydrogel -Mepilex Border 1 #2 R POST LE -Ulcer Cleansing Rinsed/ Irrigated with Saline -Foul Odor after Cleansing No -Primary Dressing Applied Mepilex Border -Other Dressing hydrogel -Mepilex Border 1 Treatment Response Procedure Tolerated Well Pain Scale: 0-10 Numeric Is Patient Pain Free? Yes - Visit Discharge Discharge Condition Stable Ambulatory Status Ambulatory, Walker Transportation Private Auto Additional Wound Wound debrided: left posterior LE Laterality: Left Type of Debridement: Excisional debridement Anesthesia Used: 4% Lidocaine Solution, 5% Lidocaine Gel and Cetacaine Depth: Down to and including healthy tissue and in the subcutaneous layer Percentage of wound debrided: 100 Tissue Removed: Yellow slough, devitalized tissue Severity: Fat Layer Exposed Amount of bleeding with debridement: Mild Bleeding Controlled with: Compression and gauze Patient tolerated procedure: Patient tolerated procedure well Assessment/Plan Assessment/Plan (1) Venous stasis ulcer of left lower leg with edema of left lower leg: CODE(S): I83.029 - Varicose veins of left lower extremity with ulcer of unspecified site; I83.892 - Varicose veins of left lower extremity with other complications; L97.929 - Non-pressure chronic ulcer of unspecified part of left lower leg with unspecified severity; R60.9 - Edema, unspecified (2) Diabetes mellitus: CODE(S): E11.9 - Type 2 diabetes mellitus without complications QUALIFIERS: Diabetes mellitus type: type 2 Diabetes mellitus fdc insulin use: without fpc use Diabetes mellitus complication status: with neurologic complications Diabetes mellitus complication detail: with polyneuropathy Qualified Code(s): E11.42 - Type 2 diabetes mellitus with diabetic polyneuropathy (3) Chronic obstructive pulmonary disease: CODE(S): J44.9 - Chronic obstructive pulmonary disease, unspecified QUALIFIERS: COPD type: unspecified COPD Qualified Code(s): J44.9 - Chronic obstructive pulmonary disease, unspecified (4) Hypertension: CODE(S): I10 - Essential (primary) hypertension QUALIFIERS: Hypertension type: primary hypertension Qualified Code(s): I10 - Essential (primary) hypertension (5) 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: CODE(S): I83.019 - Varicose veins of right lower extremity with ulcer of unspecified site; L97.919 - Non-pressure chronic ulcer of unspecified part of right lower leg with unspecified severity (6) Nonhealing ulcer of left lower extremity with fat layer exposed: CODE(S): L97.922 - Non-pressure chronic ulcer of unspecified part of left lower leg with fat layer exposed (7) Nonhealing ulcer of right lower extremity with fat layer exposed: CODE(S): L97.912 - Non-pressure chronic ulcer of unspecified part of rightlower leg with fat layer exposed (8) Supplemental oxygen dependent: CODE(S): Z99.81 - Dependence on supplemental oxygen PLAN: Plan Debridement performed today in clinic as annotated above. At home wound-care instructions: Will have her apply Santyl and adaptic to both wounds daily. She will cover with silicone bordered foam dressing. Keep dressingclean and dry. Off-loading: The patient was instructed to avoid pressure and friction on the affected areas. Reposition every 2 hours at minimum. Avoid prolonged standing and/or dangling of legs. When seated, feet should be elevated at chest level. Frequent ambulation is encouraged. Diet: Patient encouraged to increase protein intake while taking caution to avoid high carbohydrate and/or sugar intake. Labs/cultures/imaging: Culture positive for Staph aureus completes doxycycline on Thursday. Vascular testing ordered to evaluate for arterial and venous disease as she had prolonged healing previously and spontaneous appearance of these ulcers. Follow-up: Return in 1 week for wound care follow up. Return sooner or report tothe emergency room should symptoms worsen, or new symptoms arise. Note: [employer] speech recognition auto motor mechanic software was used to create portions of this document. Sound-alike and misspelled words, as well as other auto motor mechanic errors may be contained in the documentation. 08/08/22 1358 <Electronically signed by Nisha Magallon DO> Cosigner Signature (if applicable): CC: ~ Signed [facility] Work Phone: 1(262) 435-508303-02-2023 History of Present illness Narrative* Darlene Urbano RN - 08/07/2022 8:32 AM EST INSIGHT [facility] TELEPHONIC OUTREACH Provider Action/FYI: 2nd attempt Last [facility] CDM contact 04/07/22 Contact made with patient: No - Left message Poonam my name is Darlene Urbano RN your Front Office Manager from the [facility] I am calling today for your bi-weekly check in. I am sorry I missed your call. I will reach out to you again tomorrow. (if the third call I will reach out to you again next week) Enter next patient outreach date for the following business day using the Track Pt Outreach. End outreach. * Darlene Urbano RN - 08/06/2022 3:33 PM EST INSIGHT [facility] TELEPHONIC OUTREACH Provider Action/FYI: Contact made with patient: No - Left message Poonam my name is Darlene Urbano RN your Front Office Manager from the [facility] I am calling today for your bi-weekly check in. I am sorry I missed your call. I will reach out to you again tomorrow. (if the third call I will reach out to you again next week) Enter next patient outreach date for the following business day using the Track Pt Outreach. End outreach. [facility] Magallon [facility] August 01, 2022 1:20pm Note Date/Time August 01, 2022 1:20pm [facility] [address] [place] [address] Progress Note - Wound Care 08/01/22 1315 MR#: [id number] Acct: [id number] Name: KANDI CORREIA Rep #:[id number] : 1945 76 From: Nisha Magallon DO PCP: Dr. Jalyn Smith MD Status:REG R CR Location: History of Present Illness Date of Service: 08/01/22 Chief Complaint: Venous leg ulcer left lower extremity and right lower extremity History of Wound: This is a 76-year-old white female who presents to the wound healing center today with complaint of nonhealing ulceration of her right and left lower extremities. She has a past medical history significant for chronic hypoxia on supplemental O2, COPD, type 2 diabetes mellitus, CHF, and osteoarthritis of the bilateral knees and GERD. The patient states that her wounds initially occurred after scratching the back of her leg on something almost a month ago. She saw her PCP last week and was started on Cephalexin QID x 10 days. She was 2 days left of treatment. She has not had any improvement in her pain or ulcers since starting the antibiotic. Shehas been applying triple antibiotic ointment covering with gauze for the last few days but had been using hydrogel and nonadherent dressings prior to that. She states that she has not been utilizing any compression due to pain but has been elevating her legs more frequently and using a wedge pillow. She denies any systemic or localized signs of infection at this time. Denies any prior cultures being taken. Objective Data Objective Data Vital Signs: Vital Signs Temp Pulse Resp BP 97 F L 66 20 H 118/63 08/01/22 09:18 08/01/22 09:18 08/01/22 09:18 08/01/22 09:18 Weight: 91.777 kg Body Mass Index (BMI) 34.7 Lab / Micro Data Micro: Microbiology 07/25/22 10:15 Wound Abcess - Leg, Right Gram Stain - Final 07/25/22 10:15 Wound Abcess - Leg, Right Wound Culture - Final Staphylococcus aureus 07/25/22 10:15 Wound Abcess - Leg, Right Anaerobic Culture - Final No anaerobic bacteria isolated. Physical Exam Const alert, oriented x3 and no apparent distress General Appearance: cooperative and comfortable HEENT normocephalic and head/scalp atraumatic Resp normal respiratory effort Effort and Inspection: able to speak in complete sentences Cardio regular rate and regular rhythm Skin Wounds: wounds noted Wound Narrative: as in clinical panel Psych mental status grossly normal, thought process normal, cooperative and affect normal Debridement Note Debridement Note Wound debrided: right posterior LE Laterality: Right Type of Debridement: Excisional debridement Anesthesia Used: 4% Lidocaine Solution, 5% Lidocaine Gel and Cetacaine Depth: Down to and including healthy tissue and in the subcutaneous layer Percentage of wound debrided: 100 Instrument Used: 5mm curette Tissue Removed: Yellow slough, devitalized tissue Severity: Fat Layer Exposed Amount of bleeding with debridement: Mild Bleeding Controlled with: Compression and gauze Patient tolerated procedure: Patient tolerated procedure well Post-Debridement Measurements and Additional Note: Post-Debridement Measurements/Treatment WC - Nurse 1 - General Ulcer Assessment Start: 07/25/22 09:08 Freq: Status: Active Protocol: CHING Activity Type Activity Date Activity User E-sign Co-sign Detail Recorded Client Recorded Date Recorded By Document 07/25/22 09:08 DL [id number] 07/25/22 09:21 DL Edit Result 07/25/22 09:08 DL (1) [id number] 07/25/22 09:37 DL Document 08/01/22 09:18 ML [id number] 08/01/22 09:35 ML (1) Height => 5 ft 4 in Weight => 91.777 kg Weight in Pounds => 202.3 lbs Body Mass Index (BMI) => 34.7 BMI Classification => Obese BSA - Petra => 1.97 Left - Posterior Tibial Palpable => No - Posterior Tibial Doppler => Multiphasic - Dorsalis Pedis Palpable => Yes - Dorsalis Pedis Doppler => Multiphasic - Extremity Color => Hyperpigmented - Hair Growth on Legs => No - Hair Growth on Toes => No - Temperature of Extremity => Warm - Capillary Refill => Greater than 3 => Seconds - Other Deformity => No - Prior Foot Ulcer => No - Charcot Joint => No - Prior Amputation => No - Thick => No - Discolored => No - Deformed => No - Improper Length & Hygeine => No Right - Popliteal Doppler => Multiphasic - Posterior Tibial Palpable => No - Posterior Tibial Doppler => Multiphasic - Dorsalis Pedis Palpable => Yes - Extremity Color => Hyperpigmented - Hair Growth on Legs => No - Hair Growth on Toes => No - Temperature of Extremity => Warm - Capillary Refill => Less than 3 => Seconds - Dependent Rubor => No - Blanched when Elevated => No - Lipodermatosclerosis => No - Other Deformity => No - Prior Foot Ulcer => No - Charcot Joint => No - Prior Amputation => No - Thick => No - Discolored => No - Deformed => No - Improper Length & Hygeine => No Feet - Top Side and Bottom => <Entered> (a) Preferred language => Beninese Able to Read => Yes Able to Write => Yes Communication Tools => None Right Hearing Abillity => Normal Left Hearing Abillity => Normal Visual Assistive Devices => Glasses Preferences => Verbal,Written, => Demonstration Readiness To Learn => Good Willingness to Engage in Self Management => Med Activies Readiness to Engage in Self Management => Med Activities Anxiety Level => Anxious Cooperation => Cooperative Perception => Coherent Interest in Health Problem => Asks Questions Education Importance => Acknowledges Need Does Patient Smoke tobacco or other => No substances Smoking Status => Former smoker Is Patient Diabetic => Yes Recent Decline in Ability to Perform => Ambulation Cultural/Gnosticism Needs that may affect => No Treatment Plan Would you allow our hospital lever tender to => No meet you for the purpose of spiritual/ emotional support? Commercial Credit Specialist to contact place of zoroastrian => No Diagnostic Tests Ordered - Person Taught => Patient,Family Discharge Instructions - Person Taught => Patient,Family Dressing Your Wound - Person Taught => Patient,Family *Welcome to the Wound Center - Person Taught => Patient,Family 07/25/22 08/01/22 09:08 09:18 - Today's Visit Information Type of service Initial Visit Follow-up Visit (Physician/REFINERY OPERATOR HELPER ) Arrival Mode Ambulatory, Ambulatory, Walker Walker Transfer Assistance None None Patient Identification Verified (Name & Yes Yes ) Patient Requires Transmission-Based No No Precautions Safety Precautions NA Finger Stick Blood Sugar(mg/dl) (if doesnt check indicated): Blood Sugar Stated by Patient Height and Weight Height 5 ft 4 in Weight 91.777 kg Weight in Pounds 202.3 lbs Body Mass Index (BMI) 34.7 34.7 BMI Classification Obese Obese BSA - Petra 1.97 Vital Signs Temperature (97.8 F-99.1 F) 96.8 F L 97 F L Temperature Source Temporal Temporal Pulse Rate (60-100) 69 66 Pulse Location Monitor Monitor Respiratory Rate (12-18) 24 H 20 H Respiratory rate source Observation Observation Blood Pressure (90/60-120/80) 146/84 H 118/63 Blood Pressure Mean (mm Hg) 104 81 Source Monitor Monitor Position Sitting Blood Pressure Location Right Arm History Since Last Visit- (Skip if this is Patient's initial visit) Have you changed medications since your No last visit? Any new allergies or adverse reactions No Had a fall/change in ADL's that may No increase risk of falls Signs or symptoms of abuse and/or No neglect since last visit Have you been in the hospital since your No last visit? Has dressing in place as prescribed Yes Has compression in place as prescribed N/A Has offloadiing in place as prescribed N/A Experienced any changes in pain level or No management Left Footwear Regular Shoe Regular Shoe Right Footwear Regular Shoe Regular Shoe Pain Scale: 0-10 Numeric Is Patient Pain Free? Yes Yes Lower Extremity Assessment/ Foot Assessment/ Toe Nail Assessment Left -Posterior Tibial Palpable No -Posterior Tibial Doppler Multiphasic -Dorsalis Pedis Palpable Yes -Dorsalis Pedis Doppler Multiphasic -Extremity Color Hyperpigmented -Hair Growth on Legs No -Hair Growth on Toes No -Temperature of Extremity Warm -Capillary Refill Greater than 3 Seconds -Other Deformity No -Prior Foot Ulcer No -Charcot Joint No -Prior Amputation No -Thick No -Discolored No -Deformed No -Improper Length & Hygeine No Right -Popliteal Doppler Multiphasic -Posterior Tibial Palpable No -Posterior Tibial Doppler Multiphasic -Dorsalis Pedis Palpable Yes -Extremity Color Hyperpigmented -Hair Growth on Legs No -Hair Growth on Toes No -Temperature of Extremity Warm -Capillary Refill Less than 3 Seconds -Dependent Rubor No -Blanched when Elevated No -Lipodermatosclerosis No -Other Deformity No -Prior Foot Ulcer No -Charcot Joint No -Prior Amputation No -Thick No -Discolored No -Deformed No -Improper Length & Hygeine No Neuropathy Assessment Feet - Top Side and Bottom <Entered> (a) Communication Assessment Preferred language Beninese Able to Read Yes Able to Write Yes Communication Tools None Right Hearing Abillity Normal Left Hearing Abillity Normal Visual Assistive Devices Glasses Teaching Assessment Preferences Verbal,Written, Demonstration Readiness To Learn Good Willingness to Engage in Self Management Med Activies Readiness to Engage in Self Management Med Activities Anxiety Level Anxious Cooperation Cooperative Perception Coherent Interest in Health Problem Asks Questions Education Importance Acknowledges Need Does Patient Smoke tobacco or other No substances Smoking Status Former smoker Is Patient Diabetic Yes Functional Assessment Recent Decline in Ability to Perform Ambulation Culture/Gnosticism/Commercial Credit Specialist Cultural/Gnosticism Needs that may affect No Treatment Plan Would you allow our hospital lever tender to No meet you for the purpose of spiritual/ emotional support? Commercial Credit Specialist to contact place of zoroastrian No Teaching: Wound Center Diagnostic Tests Ordered -Person Taught Patient,Family Discharge Instructions -Person Taught Patient,Family Dressing Your Wound -Person Taught Patient,Family *Welcome to the Wound Center -Person Taught Patient,Family (a) 1 - + WC - Nurse 1 - General Ulcer Measurement Start: 07/25/22 09:08 Freq: Status: Active Protocol: Activity Type Activity Date Activity User E-sign Co-sign Detail Recorded Client Recorded Date Recorded By Document 07/25/22 09:08 DL [id number] 07/25/22 09:21 DL Edit Result 07/25/22 09:08 DL (1) [id number] 07/25/22 09:37 DL Document 08/01/22 09:18 ML [id number] 08/01/22 09:35 ML (1) #3 L POST LE - Photo Taken => Yes - Classification - Thickness => Full Thickness => without Exposed => Support Structure - Texture (Leticia-wound Skin Appearance) Assessed => Assessed,Localized => Edema,Scarring #2 R POST LE - Photo Taken => Yes - Texture (Leticia-wound Skin Appearance) Assessed => Assessed,Localized => Edema,Scarring 07/25/22 08/01/22 09:08 09:18 Wound Center Nurse 1 #1 LLE Post -Photo Taken Yes #3 L POST LE -Current Size (cm) - Length 4.1 4 -Current Size (cm) - Width 1.3 1 -Current Size (cm) - Depth 0.3 0.2 -Total Square Cm 5.33 4 -Photo Taken Yes -Classification - Thickness Full Thickness without Exposed Support Structure -Exudate Amt Large Medium -Exudate Type Yellow/Green Serosanguineous -Wound Margin Distinct, Distinct, Outline Outline Attached Attached -Slough/Fibrin Yes Yes -Necrosis Amt Large (67-100%) None Present (0 %) -Necrotic Tissue Type Adherent Slough Adherent Slough -Texture (Leticia-wound Skin Appearance) Assessed, Assessed Localized Edema ,Scarring -Moisture (Leticia-wound Skin Appearance) Assessed Maceration -Color (Leticia-wound Skin Appearance) Assessed, Assessed Erythema -Temperature (Leticia-wound Skin No Abnormality No Abnormality Appearance) (Pt Warm) (Pt Warm) -Tenderness on Palpation (Leticia-wound Yes Yes Skin Appearance) -Ulcer Cleansing Soap and Water Rinsed/ Irrigated with Saline -Foul Odor after Cleansing No No -Anesthetic Used 5% Lidocaine 4% Lidocaine Gel Solution #2 R POST LE -Current Size (cm) - Length 3.5 4 -Current Size (cm) - Width 5.7 6.5 -Current Size (cm) - Depth 0.2 0.2 -Total Square Cm 19.95 26.0 -Photo Taken Yes -Exudate Amt Large Medium -Exudate Type Yellow/Green Serosanguineous -Wound Margin Distinct, Distinct, Outline Outline Attached Attached -Granulation Amt None Present (0 %) -Slough/Fibrin Yes Yes -Necrosis Amt Large (67-100%) Medium (34-66%) -Necrotic Tissue Type Adherent Slough Adherent Slough -Texture (Leticia-wound Skin Appearance) Assessed, Assessed Localized Edema ,Scarring -Moisture (Leticia-wound Skin Appearance) Assessed Assessed -Color (Leticia-wound Skin Appearance) Assessed, Assessed Erythema -Temperature (Leticia-wound Skin No Abnormality No Abnormality Appearance) (Pt Warm) (Pt Warm) -Tenderness on Palpation (Leticia-wound Yes Yes Skin Appearance) -Ulcer Cleansing Rinsed/ Rinsed/ Irrigated with Irrigated with Saline Saline -Foul Odor after Cleansing No No -Anesthetic Used 5% Lidocaine 4% Lidocaine Gel Solution Right Calf (cm) 40.5 38 Right Ankle (cm) 23.5 27.5 Left Calf (cm) 41 34 Left Ankle (cm) 23 23.5 WC - Nurse 2 - General Ulcer CM Notes Start: 07/25/22 09:08 Freq: Status: Active Protocol: Activity Type Activity Date Activity User E-sign Co-sign Detail Recorded Client Recorded Date Recorded By Document 07/25/22 10:05 MW [id number] 07/25/22 10:26 MW Edit Result 07/25/22 10:05 MW (1) [id number] 07/28/22 06:54 PL Document 08/01/22 09:51 MW [id number] 08/01/22 10:12 MW (1) #3 L POST LE - Debridement, SubQ, ea addt'l 20sq cm => 1 or part thereof 07/25/22 08/01/22 10:05 09:51 Wound Center Nurse 2 #3 L POST LE -Time 10:08 09:51 -Correct Patient Yes Yes -Correct Side, Site, Position Yes Yes -Correct Procedure Yes Yes -Procedure Performed Yes Yes -Type of Procedure Debridement Debridement -Clinical Debridement Subcutaneous Subcutaneous -Tissue Removed Subcutaneous Subcutaneous -Post Debridement (cm) - Length 4.0 3.4 -Post Debridement (cm) - Width 1.2 1.1 -Post Debridement (cm) - Depth 0.2 0.2 -Total Square (Post) (cm) 4.80 3.74 -Area of Debridement (cm) - Length 4.0 3.4 -Area of Debridement (cm) - Width 1.2 1.1 -Total Square (Area) (cm) 4.80 3.74 -Tunneling No No -Undermining/Tunneling No No -Circular Undermining No No -Wound/Ulcer Outcome Not Healed Not Healed -Ulcer Cleansing Rinsed/ Rinsed/ Irrigated with Irrigated with Saline Saline -Foul Odor after Cleansing No No -Bioengineered Tissue No No -Bleeding Controlled with Pressure Pressure -Treatment Response Procedure Procedure Tolerated Well Tolerated Well -Offloading No No -Debridement - Subq, 1st 20sq cm Yes Yes -Debridement, SubQ, ea addt'l 20sq cm 1 or part thereof #2 R POST LE -Time 10:08 10:00 -Correct Patient Yes Yes -Correct Side, Site, Position Yes Yes -Correct Procedure Yes Yes -Procedure Performed Yes Yes -Type of Procedure Debridement Debridement -Clinical Debridement Subcutaneous Subcutaneous -Tissue Removed Subcutaneous Subcutaneous -Post Debridement (cm) - Length 3.6 3.0 -Post Debridement (cm) - Width 6.2 5.8 -Post Debridement (cm) - Depth 0.2 0.2 -Total Square (Post) (cm) 22.32 17.40 -Area of Debridement (cm) - Length 3.6 3.0 -Area of Debridement (cm) - Width 6.2 5.8 -Total Square (Area) (cm) 22.32 17.40 -Tunneling No No -Undermining/Tunneling No No -Circular Undermining No No -Wound/Ulcer Outcome Not Healed Not Healed -Ulcer Cleansing Rinsed/ Rinsed/ Irrigated with Irrigated with Saline Saline -Foul Odor after Cleansing No No -Bioengineered Tissue No No -Bleeding Controlled with Pressure Pressure -Treatment Response Procedure Procedure Tolerated Well Tolerated Well -Offloading No No -Debridement - Subq, 1st 20sq cm No No Pain Scale: 0-10 Numeric Is Patient Pain Free? Yes Yes - Nurse 3 - General Ulcer D/C NN Start: 07/25/22 09:08 Freq: Status: Active Protocol: Activity Type Activity Date Activity User E-sign Co-sign Detail Recorded Client Recorded Date Recorded By Document 07/25/22 10:36 DL [id number] 07/25/22 10:42 DL Document 08/01/22 10:19 RB [id number] 08/01/22 10:21 RB 07/25/22 08/01/22 10:36 10:19 Wound Care Center Nurse 3 #3 L POST LE -Ulcer Cleansing Rinsed/ Wound Cleanser Irrigated with Saline -Foul Odor after Cleansing No -Primary Dressing Applied Fibracol Plus NonAdherent 4x4,Mepilex Contact Layer, Border Mepilex Border -Other Dressing ADAPTIC, hydrogel -Fibracol Plus 4x4 1 -Mepilex Border 1 1 #2 R POST LE -Ulcer Cleansing Rinsed/ Rinsed/ Irrigated with Irrigated with Saline Saline -Foul Odor after Cleansing No -Primary Dressing Applied Fibracol Plus NonAdherent 4x4,Mepilex Contact Layer, Border Mepilex Border -Other Dressing ADAPTIC hydrogel -Fibracol Plus 4x4 0 -Mepilex Border 1 1 Right -Tubular Bandage Single Layer -Size of Tubigrip Used Size D -Size D ($) 1 Left -Tubular Bandage Single Layer -Size of Tubigrip Used Size D -Size D ($) 1 Treatment Response Procedure Tolerated Well Pain Scale: 0-10 Numeric Is Patient Pain Free? Yes Yes WC - Visit Discharge Discharge Condition Stable Ambulatory Status Ambulatory, Walker Transportation Private Auto Medication Reconcilliation completed & No provided to patient/care provider Clinical Summary of Care Provided Yes Additional Wound Wound debrided: left posterior LE Laterality: Left Type of Debridement: Excisional debridement Anesthesia Used: 4% Lidocaine Solution, 5% Lidocaine Gel and Cetacaine Depth: Down to and including healthy tissue and in the subcutaneous layer Percentage of wound debrided: 100 Tissue Removed: Yellow slough, devitalized tissue Severity: Fat Layer Exposed Amount of bleeding with debridement: Mild Bleeding Controlled with: Compression and gauze Patient tolerated procedure: Patient tolerated procedure well Assessment/Plan Assessment/Plan (1) Venous stasis ulcer of left lower leg with edema of left lower leg: CODE(S): I83.029 - Varicose veins of left lower extremity with ulcer of unspecified site; I83.892 - Varicose veins of left lower extremity with other complications; L97.929 - Non-pressure chronic ulcer of unspecified part of left lower leg with unspecified severity; R60.9 - Edema, unspecified (2) Diabetes mellitus: CODE(S): E11.9 - Type 2 diabetes mellitus without complications QUALIFIERS: Diabetes mellitus type: type 2 Diabetes mellitus fdc insulin use: without long term care administrator use Diabetes mellitus complication status: with neurologic complications Diabetes mellitus complication detail: with polyneuropathy Qualified Code(s): E11.42 - Type 2 diabetes mellitus with diabetic polyneuropathy (3) Chronic obstructive pulmonary disease: CODE(S): J44.9 - Chronic obstructive pulmonary disease, unspecified QUALIFIERS: COPD type: unspecified COPD Qualified Code(s): J44.9 - Chronic obstructive pulmonary disease, unspecified (4) Hypertension: CODE(S): I10 - Essential (primary) hypertension QUALIFIERS: Hypertension type: primary hypertension Qualified Code(s): I10 - Essential (primary) hypertension (5) 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: CODE(S): I83.019 - Varicose veins of right lower extremity with ulcer of unspecified site; L97.919 - Non-pressure chronic ulcer of unspecified part of right lower leg with unspecified severity (6) Nonhealing ulcer of left lower extremity with fat layer exposed: CODE(S): L97.922 - Non-pressure chronic ulcer of unspecified part of left lower leg with fat layer exposed (7) Nonhealing ulcer of right lower extremity with fat layer exposed: CODE(S): L97.912 - Non-pressure chronic ulcer of unspecified part of rightlower leg with fat layer exposed (8) Supplemental oxygen dependent: CODE(S): Z99.81 - Dependence on supplemental oxygen PLAN: Plan Debridement performed today in clinic as annotated above. At home wound-care instructions: Will have her apply Santyl and adaptic to both wounds daily. She will cover with silicone bordered foam dressing. Keep dressingclean and dry. Off-loading: The patient was instructed to avoid pressure and friction on the affected areas. Reposition every 2 hours at minimum. Avoid prolonged standing and/or dangling of legs. When seated, feet should be elevated at chest level. Frequent ambulation is encouraged. Diet: Patient encouraged to increase protein intake while taking caution to avoid high carbohydrate and/or sugar intake. Labs/cultures/imaging: Culture positive for Staph aureus - started on doxycycline today. Vascular testing ordered to evaluate for arterial and venous disease as she had prolonged healing previously and spontaneous appearance of these ulcers. Follow-up: Return in 1 week for wound care follow up. Return sooner or report tothe emergency room should symptoms worsen, or new symptoms arise. Note: [employer] speech recognition auto motor mechanic software was used to create portions of this document. Sound-alike and misspelled words, as well as other auto motor mechanic errors may be contained in the documentation. 08/01/22 1320 <Electronically signed by Nisha Magallon DO> Cosigner Signature (if applicable): CC: ~ Signed [facility] Work Phone: [phone] [phone] History and physical note Author Dr. Magallon [facility] July 25, 2022 3:03pm Note Date/Time July 25, 2022 2:44pm [facility] [address] [place] [address] H&P Exam - Wound Care 07/25/22 1437 MR#: [id number] Acct: [id number] Name: KANDI CORREIA Rep #:[id number] : 1945 76 From: Nisha Magallon DO PCP: Dr. Jalyn Smith MD Status:REG R CR Location: History of Present Illness Date of Service: 07/25/22 Chief Complaint: Venous leg ulcer left lower extremity and right lower extremity History of Wound: This is a 76-year-old white female who presents to the wound healing center today with complaint of nonhealing ulceration of her right and left lower extremities. She has a past medical history significant for chronic hypoxia on supplemental O2, COPD, type 2 diabetes mellitus, CHF, and osteoarthritis of the bilateral knees and GERD. The patient states that her wounds initially occurred after scratching the back of her leg on something almost a month ago. She saw her PCP last week and was started on Cephalexin QID x 10 days. She was 2 days left of treatment. She has not had any improvement in her pain or ulcers since starting the antibiotic. Shehas been applying triple antibiotic ointment covering with gauze for the last few days but had been using hydrogel and nonadherent dressings prior to that. She states that she has not been utilizing any compression due to pain but has been elevating her legs more frequently and using a wedge pillow. She denies any systemic or localized signs of infection at this time. Denies any prior cultures being taken. [facility] Medical History COPD (chronic obstructive pulmonary disease) Debility Degenerative disc disease, lumbar Depression Edema of both lower extremities Essential hypertension Fibromyalgia Generalized muscle weakness GERD (gastroesophageal reflux disease) Morbid obesity with BMI of 40.0-44.9, adult Muscle spasm MICHEL (obstructive sleep apnea) Osteoarthritis Right knee pain RLS (restless legs syndrome) Type 2 diabetes mellitus without complication Venous stasis ulcer of left lower leg with edema of left lower leg Home Medications albuterol sulfate 90 mcg/actuation aerosol inhaler 2 puff inhalation Q4H PRN Sob&/Or Wheezing 10/14/18 [History Last Taken Unknown] meloxicam 7.5 mg tablet 7.5 mg PO DAILY Arthritis 10/14/18 [History Last Taken Unknown] metformin 500 mg tablet 500 mg PO DAILY Blood sugar 10/14/18 [History Last Taken Unknown] ropinirole 0.5 mg tablet 1.5 mg PO QHS Restless leg 10/14/18 [History Last Taken Unknown] Oxygen ##1 10/27/18 [History Last Taken Unknown] budesonide 0.5 mg/2 mL suspension for nebulization 1 dose inhalation BID Breathing 12/22/18 [History Last Taken Unknown] ipratropium 0.5 mg-albuterol 3 mg (2.5 mg base)/3 mL nebulization soln 1 dose inhalation 4X/DAY Breathing 12/22/18 [History Last Taken Unknown] hydrochlorothiazide 12.5 mg capsule 25 mg PO DAILY BP 07/25/21 [History Last Taken Unknown] metoprolol tartrate 50 mg tablet 50 mg PO DAILY BP 07/25/21 [History Last Taken Unknown] oxybutynin chloride 5 mg tablet 5 mg PO DAILY Bladder 07/25/21 [History Last Taken Unknown] sertraline 50 mg tablet 50 mg PO DAILY Mood 07/25/21 [History Last Taken Unknown] acetaminophen 500 mg tablet 1,000 mg PO Q6H PRN PRN Pain Score 1-3 #0 tabs 08/07/21 [Rx Last Taken Unknown] gabapentin 100 mg capsule 100 mg PO TIDCM 30 days #90 caps 08/07/21 [Rx Last Taken Unknown] oxycodone 5 mg tablet 5 mg PO Q4H PRN PRN Pain Score 6-10 7 days #42 tabs 08/07/21 [Rx Last Taken Unknown] sennosides 8.6 mg-docusate sodium 50 mg tablet (Stool Softener-Stimulant Laxative) 1 tab PO BID 30 days #60 tabs 08/07/21 [Rx Last Taken Unknown] cephalexin 500 mg capsule 500 mg PO Q6 #40 CAPSULES 08/30/21 [Rx Last Taken Unknown] Allergy/AdvReac Type Severity Reaction Status Date / Time lisinopril AdvReac Intermediate cough Verified 07/25/22 09:29 pregabalin [From Lyrica] AdvReac Swelling Verified 07/25/22 09:29 Family History Mother Cancer lymphoma Father COPD (chronic obstructive pulmonary disease) Cancer bone Son Heart disease ischemic heart disease Surgical History History of appendectomy History of hysterectomy History of tonsillectomy Social History household members: none Smoking Status: Former smoker how long ago did patient quit smokin.5 years ago alcohol intake: current alcohol intake frequency: holidays/special occasions only substance use type: does not use caffeine: Yes Type: coffee Number of servings: 1 ROS Constitutional Constitutional: Denies chills, fatigue or fever(s) Eyes Eyes: Denies blurry vision, change in vision or loss of vision ENT HEENT: Denies dysphagia, hearing loss or sore throat Cardiovascular Cardiovascular: Denies chest pain, edema or palpitations Respiratory/Chest Respiratory/Chest: Denies dry cough, dyspnea, dyspnea on exertion, productive cough or wheezing Gastrointestinal Gastrointestinal: Denies diarrhea, nausea or vomiting Genitourinary Genitourinary: Denies dysuria or polyuria Musculoskeletal Musculoskeletal: Denies arthralgias, joint stiffness or muscle weakness Integumentary Integumentary: Reports erythema and wounds Neurologic Neurologic: Denies dizziness, memory loss or weakness Psychiatric Psychiatric: Denies homicidal ideation or suicidal ideation Endocrine Endocrinology: Denies polydipsia, polyphagia or polyuria Hematologic/Lymphatic Hematologic/Lymphatic: Denies easy bleeding or easy bruising Allergic/Immunologic Allergic/Immunologic: Denies throat swelling, tongue swelling or urticaria Vital Signs Vital Signs Vital Signs: 07/25/22 09:08 Temperature 96.8 F L Temperature Source Temporal Pulse Rate 69 Respiratory Rate 24 H Blood Pressure 146/84 H Blood Pressure Mean 104 Blood Pressure Source Monitor Weight Weight: 91.777 kg Body Mass Index (BMI) 34.7 Physical Exam Const alert, oriented x3 and no apparent distress General Appearance: cooperative and comfortable HEENT normocephalic and head/scalp atraumatic Resp normal respiratory effort Effort and Inspection: able to speak in complete sentences Cardio regular rate and regular rhythm Skin Wounds: wounds noted Wound Narrative: as in clinical panel Psych mental status grossly normal, thought process normal, cooperative and affect normal Debridement Note Debridement Note Wound debrided: right posterior LE Laterality: Right Type of Debridement: Excisional debridement Anesthesia Used: 4% Lidocaine Solution, 5% Lidocaine Gel and Cetacaine Depth: Down to and including healthy tissue and in the subcutaneous layer Percentage of wound debrided: 100 Instrument Used: #15 blade and Forceps Tissue Removed: Yellow slough, devitalized tissue Severity: Fat Layer Exposed Amount of bleeding with debridement: Mild Bleeding Controlled with: Compression and gauze Patient tolerated procedure: Patient tolerated procedure well Post-Debridement Measurements and Additional Note: Post-Debridement Measurements/Treatment WC - Nurse 1 - General Ulcer Assessment Start: 07/25/22 09:08 Freq: Status: Active Protocol: CHING Activity Type Activity Date Activity User E-sign Co-sign Detail Recorded Client Recorded Date Recorded By Document 07/25/22 09:08 DL [id number] 07/25/22 09:21 DL Edit Result 07/25/22 09:08 DL (1) [id number] 07/25/22 09:37 DL (1) Height => 5 ft 4 in Weight => 91.777 kg Weight in Pounds => 202.3 lbs Body Mass Index (BMI) => 34.7 BMI Classification => Obese BSA - Petra => 1.97 Left - Posterior Tibial Palpable => No - Posterior Tibial Doppler => Multiphasic - Dorsalis Pedis Palpable => Yes - Dorsalis Pedis Doppler => Multiphasic - Extremity Color => Hyperpigmented - Hair Growth on Legs => No - Hair Growth on Toes => No - Temperature of Extremity => Warm - Capillary Refill => Greater than 3 => Seconds - Other Deformity => No - Prior Foot Ulcer => No - Charcot Joint => No - Prior Amputation => No - Thick => No - Discolored => No - Deformed => No - Improper Length & Hygeine => No Right - Popliteal Doppler => Multiphasic - Posterior Tibial Palpable => No - Posterior Tibial Doppler => Multiphasic - Dorsalis Pedis Palpable => Yes - Extremity Color => Hyperpigmented - Hair Growth on Legs => No - Hair Growth on Toes => No - Temperature of Extremity => Warm - Capillary Refill => Less than 3 => Seconds - Dependent Rubor => No - Blanched when Elevated => No - Lipodermatosclerosis => No - Other Deformity => No - Prior Foot Ulcer => No - Charcot Joint => No - Prior Amputation => No - Thick => No - Discolored => No - Deformed => No - Improper Length & Hygeine => No Feet - Top Side and Bottom => <Entered> (a) Preferred language => Beninese Able to Read => Yes Able to Write => Yes Communication Tools => None Right Hearing Abillity => Normal Left Hearing Abillity => Normal Visual Assistive Devices => Glasses Preferences => Verbal,Written, => Demonstration Readiness To Learn => Good Willingness to Engage in Self Management => Med Activies Readiness to Engage in Self Management => Med Activities Anxiety Level => Anxious Cooperation => Cooperative Perception => Coherent Interest in Health Problem => Asks Questions Education Importance => Acknowledges Need Does Patient Smoke tobacco or other => No substances Smoking Status => Former smoker Is Patient Diabetic => Yes Recent Decline in Ability to Perform => Ambulation Cultural/Gnosticism Needs that may affect => No Treatment Plan Would you allow our hospital lever tender to => No meet you for the purpose of spiritual/ emotional support? Commercial Credit Specialist to contact place of zoroastrian => No Diagnostic Tests Ordered - Person Taught => Patient,Family Discharge Instructions - Person Taught => Patient,Family Dressing Your Wound - Person Taught => Patient,Family *Welcome to the Wound Center - Person Taught => Patient,Family 07/25/22 09:08 - Today's Visit Information Type of service Initial Visit Arrival Mode Ambulatory, Walker Transfer Assistance None Patient Identification Verified (Name & Yes ) Patient Requires Transmission-Based No Precautions Finger Stick Blood Sugar(mg/dl) (if doesnt check indicated): Blood Sugar Stated by Patient Height and Weight Height 5 ft 4 in Weight 91.777 kg Weight in Pounds 202.3 lbs Body Mass Index (BMI) 34.7 BMI Classification Obese BSA - Petra 1.97 Vital Signs Temperature (97.8 F-99.1 F) 96.8 F L Temperature Source Temporal Pulse Rate (60-100) 69 Pulse Location Monitor Respiratory Rate (12-18) 24 H Respiratory rate source Observation Blood Pressure (90/60-120/80) 146/84 H Blood Pressure Mean 104 Source Monitor History Since Last Visit- (Skip if this is Patient's initial visit) Left Footwear Regular Shoe Right Footwear Regular Shoe Pain Scale: 0-10 Numeric Is Patient Pain Free? Yes Lower Extremity Assessment/ Foot Assessment/ Toe Nail Assessment Left -Posterior Tibial Palpable No -Posterior Tibial Doppler Multiphasic -Dorsalis Pedis Palpable Yes -Dorsalis Pedis Doppler Multiphasic -Extremity Color Hyperpigmented -Hair Growth on Legs No -Hair Growth on Toes No -Temperature of Extremity Warm -Capillary Refill Greater than 3 Seconds -Other Deformity No -Prior Foot Ulcer No -Charcot Joint No -Prior Amputation No -Thick No -Discolored No -Deformed No -Improper Length & Hygeine No Right -Popliteal Doppler Multiphasic -Posterior Tibial Palpable No -Posterior Tibial Doppler Multiphasic -Dorsalis Pedis Palpable Yes -Extremity Color Hyperpigmented -Hair Growth on Legs No -Hair Growth on Toes No -Temperature of Extremity Warm -Capillary Refill Less than 3 Seconds -Dependent Rubor No -Blanched when Elevated No -Lipodermatosclerosis No -Other Deformity No -Prior Foot Ulcer No -Charcot Joint No -Prior Amputation No -Thick No -Discolored No -Deformed No -Improper Length & Hygeine No Neuropathy Assessment Feet - Top Side and Bottom <Entered> (a) Communication Assessment Preferred language Beninese Able to Read Yes Able to Write Yes Communication Tools None Right Hearing Abillity Normal Left Hearing Abillity Normal Visual Assistive Devices Glasses Teaching Assessment Preferences Verbal,Written, Demonstration Readiness To Learn Good Willingness to Engage in Self Management Med Activies Readiness to Engage in Self Management Med Activities Anxiety Level Anxious Cooperation Cooperative Perception Coherent Interest in Health Problem Asks Questions Education Importance Acknowledges Need Does Patient Smoke tobacco or other No substances Smoking Status Former smoker Is Patient Diabetic Yes Functional Assessment Recent Decline in Ability to Perform Ambulation Culture/Gnosticism/Commercial Credit Specialist Cultural/Gnosticism Needs that may affect No Treatment Plan Would you allow our hospital lever tender to No meet you for the purpose of spiritual/ emotional support? Commercial Credit Specialist to contact place of zoroastrian No Teaching: Wound Center Diagnostic Tests Ordered -Person Taught Patient,Family Discharge Instructions -Person Taught Patient,Family Dressing Your Wound -Person Taught Patient,Family *Welcome to the Wound Center -Person Taught Patient,Family (a) 1 - + WC - Nurse 1 - General Ulcer Measurement Start: 02/17/23 09:08 Freq: Status: Active Protocol: Activity Type Activity Date Activity User E-sign Co-sign Detail Recorded Client Recorded Date Recorded By Document 07/25/22 09:08 DL [id number] 07/25/22 09:21 DL Edit Result 07/25/22 09:08 DL (1) [id number] 07/25/22 09:37 DL (1) #3 L POST LE - Photo Taken => Yes - Classification - Thickness => Full Thickness => without Exposed => Support Structure - Texture (Leticia-wound Skin Appearance) Assessed => Assessed,Localized => Edema,Scarring #2 R POST LE - Photo Taken => Yes - Texture (Leticia-wound Skin Appearance) Assessed => Assessed,Localized => Edema,Scarring 07/25/22 09:08 Wound Center Nurse 1 #1 LLE Post -Photo Taken Yes #3 L POST LE -Current Size (cm) - Length 4.1 -Current Size (cm) - Width 1.3 -Current Size (cm) - Depth 0.3 -Total Square Cm 5.33 -Photo Taken Yes -Classification - Thickness Full Thickness without Exposed Support Structure -Exudate Amt Large -Exudate Type Yellow/Green -Wound Margin Distinct, Outline Attached -Slough/Fibrin Yes -Necrosis Amt Large (67-100%) -Necrotic Tissue Type Adherent Slough -Texture (Leticia-wound Skin Appearance) Assessed, Localized Edema ,Scarring -Moisture (Leticia-wound Skin Appearance) Assessed -Color (Leticia-wound Skin Appearance) Assessed, Erythema -Temperature (Leticia-wound Skin No Abnormality Appearance) (Pt Warm) -Tenderness on Palpation (Leticia-wound Yes Skin Appearance) -Ulcer Cleansing Soap and Water -Foul Odor after Cleansing No -Anesthetic Used 5% Lidocaine Gel #2 R POST LE -Current Size (cm) - Length 3.5 -Current Size (cm) - Width 5.7 -Current Size (cm) - Depth 0.2 -Total Square Cm 19.95 -Photo Taken Yes -Exudate Amt Large -Exudate Type Yellow/Green -Wound Margin Distinct, Outline Attached -Granulation Amt None Present (0 %) -Slough/Fibrin Yes -Necrosis Amt Large (67-100%) -Necrotic Tissue Type Adherent Slough -Texture (Leticia-wound Skin Appearance) Assessed, Localized Edema ,Scarring -Moisture (Leticia-wound Skin Appearance) Assessed -Color (Leticia-wound Skin Appearance) Assessed, Erythema -Temperature (Leticia-wound Skin No Abnormality Appearance) (Pt Warm) -Tenderness on Palpation (Leticia-wound Yes Skin Appearance) -Ulcer Cleansing Rinsed/ Irrigated with Saline -Foul Odor after Cleansing No -Anesthetic Used 5% Lidocaine Gel Right Calf (cm) 40.5 Right Ankle (cm) 23.5 Left Calf (cm) 41 Left Ankle (cm) 23 WC - Nurse 2 - General Ulcer CM Notes Start: 07/25/22 09:08 Freq: Status: Active Protocol: Activity Type Activity Date Activity User E-sign Co-sign Detail Recorded Client Recorded Date Recorded By Document 07/25/22 10:05 MW [id number] 07/25/22 10:26 MW 07/25/22 10:05 Wound Center Nurse 2 #3 L POST LE -Time 10:08 -Correct Patient Yes -Correct Side, Site, Position Yes -Correct Procedure Yes -Procedure Performed Yes -Type of Procedure Debridement -Clinical Debridement Subcutaneous -Tissue Removed Subcutaneous -Post Debridement (cm) - Length 4.0 -Post Debridement (cm) - Width 1.2 -Post Debridement (cm) - Depth 0.2 -Total Square (Post) (cm) 4.80 -Area of Debridement (cm) - Length 4.0 -Area of Debridement (cm) - Width 1.2 -Total Square (Area) (cm) 4.80 -Tunneling No -Undermining/Tunneling No -Circular Undermining No -Wound/Ulcer Outcome Not Healed -Ulcer Cleansing Rinsed/ Irrigated with Saline -Foul Odor after Cleansing No -Bioengineered Tissue No -Bleeding Controlled with Pressure -Treatment Response Procedure Tolerated Well -Offloading No -Debridement - Subq, 1st 20sq cm Yes #2 R POST LE -Time 10:08 -Correct Patient Yes -Correct Side, Site, Position Yes -Correct Procedure Yes -Procedure Performed Yes -Type of Procedure Debridement -Clinical Debridement Subcutaneous -Tissue Removed Subcutaneous -Post Debridement (cm) - Length 3.6 -Post Debridement (cm) - Width 6.2 -Post Debridement (cm) - Depth 0.2 -Total Square (Post) (cm) 22.32 -Area of Debridement (cm) - Length 3.6 -Area of Debridement (cm) - Width 6.2 -Total Square (Area) (cm) 22.32 -Tunneling No -Undermining/Tunneling No -Circular Undermining No -Wound/Ulcer Outcome Not Healed -Ulcer Cleansing Rinsed/ Irrigated with Saline -Foul Odor after Cleansing No -Bioengineered Tissue No -Bleeding Controlled with Pressure -Treatment Response Procedure Tolerated Well -Offloading No -Debridement - Subq, 1st 20sq cm No Pain Scale: 0-10 Numeric Is Patient Pain Free? Yes WC - Nurse 3 - General Ulcer D/C NN Start: 07/25/22 09:08 Freq: Status: Active Protocol: Activity Type Activity Date Activity User E-sign Co-sign Detail Recorded Client Recorded Date Recorded By Document 07/25/22 10:36 DL [id number] 07/25/22 10:42 DL 07/25/22 10:36 Wound Care Center Nurse 3 #3 L POST LE -Ulcer Cleansing Rinsed/ Irrigated with Saline -Foul Odor after Cleansing No -Primary Dressing Applied Fibracol Plus 4x4,Mepilex Border -Other Dressing ADAPTIC, -Fibracol Plus 4x4 1 -Mepilex Border 1 #2 R POST LE -Ulcer Cleansing Rinsed/ Irrigated with Saline -Foul Odor after Cleansing No -Primary Dressing Applied Fibracol Plus 4x4,Mepilex Border -Other Dressing ADAPTIC -Fibracol Plus 4x4 0 -Mepilex Border 1 Pain Scale: 0-10 Numeric Is Patient Pain Free? Yes Additional Wound Wound debrided: left posterior LE Laterality: Left Type of Debridement: Excisional debridement Anesthesia Used: 4% Lidocaine Solution, 5% Lidocaine Gel and Cetacaine Depth: Down to and including healthy tissue and in the subcutaneous layer Percentage of wound debrided: 100 Instrument Used: #15 blade and Forceps Tissue Removed: Yellow slough, devitalized tissue Severity: Fat Layer Exposed Amount of bleeding with debridement: Mild Bleeding Controlled with: Compression and gauze Patient tolerated procedure: Patient tolerated procedure well Assessment/Plan Assessment/Plan (1) Venous stasis ulcer of left lower leg with edema of left lower leg: CODE(S): I83.029 - Varicose veins of left lower extremity with ulcer of unspecified site; I83.892 - Varicose veins of left lower extremity with other complications; L97.929 - Non-pressure chronic ulcer of unspecified part of left lower leg with unspecified severity; R60.9 - Edema, unspecified (2) Diabetes mellitus: CODE(S): E11.9 - Type 2 diabetes mellitus without complications QUALIFIERS: Diabetes mellitus type: type 2 Diabetes mellitus fdc insulin use: without fpc use Diabetes mellitus complication status: with neurologic complications Diabetes mellitus complication detail: with polyneuropathy Qualified Code(s): E11.42 - Type 2 diabetes mellitus with diabetic polyneuropathy (3) Chronic obstructive pulmonary disease: CODE(S): J44.9 - Chronic obstructive pulmonary disease, unspecified QUALIFIERS: COPD type: unspecified COPD Qualified Code(s): J44.9 - Chronic obstructive pulmonary disease, unspecified (4) Hypertension: CODE(S): I10 - Essential (primary) hypertension QUALIFIERS: Hypertension type: primary hypertension Qualified Code(s): I10 - Essential (primary) hypertension (5) 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: CODE(S): I83.019 - Varicose veins of right lower extremity with ulcer of unspecified site; L97.919 - Non-pressure chronic ulcer of unspecified part of right lower leg with unspecified severity (6) Nonhealing ulcer of left lower extremity with fat layer exposed: CODE(S): L97.922 - Non-pressure chronic ulcer of unspecified part of left lower leg with fat layer exposed (7) Nonhealing ulcer of right lower extremity with fat layer exposed: CODE(S): L97.912 - Non-pressure chronic ulcer of unspecified part of rightlower leg with fat layer exposed (8) Supplemental oxygen dependent: CODE(S): Z99.81 - Dependence on supplemental oxygen PLAN: Plan Debridement performed today in clinic as annotated above. At home wound-care instructions: Will have her apply Santyl and adaptic to the right LE ulcer and Hydrogel and adaptic to his left LE. She will cover with silicone bordered. Keep dressing clean and dry. Off-loading: The patient was instructed to avoid pressure and friction on the affected areas. Reposition every 2 hours at minimum. Avoid prolonged standing and/or dangling of legs. When seated, feet should be elevated at chest level. Frequent ambulation is encouraged. Diet: Patient encouraged to increase protein intake while taking caution to avoid high carbohydrate and/or sugar intake. Labs/cultures/imaging: Culture taken today. Follow-up: Return in 1 week for wound care follow up. Return sooner or report tothe emergency room should symptoms worsen, or new symptoms arise. Note: [employer] speech recognition auto motor mechanic software was used to create portions of this document. Sound-alike and misspelled words, as well as other auto motor mechanic errors may be contained in the documentation. 07/25/22 1503 <Electronically signed by Nisha Magallon DO> Cosigner Signature (if applicable): CC: ~ Signed [facility] Work Phone: [phone] Miscellaneous Notes* Telephone Encounter - Natalie Gonzalez Ma - 07/21/2022 5:10 PM EST Last office visit: 07/17/22 F/u scheduled: none Ditropan was already refilled to [facility] pharmacy in Jun 2022 Natalie Gonzalez Ma documented in this encounterBlanchard [facility]02-09-[facility]23 History of Present illness Narrative* Jalyn Smith MD - 07/17/2022 10:25 AM EST Patient presents with: Wound Check: Right lower leg new wound. Also old wound on back on left leg is seeping again. HPI: Patient presents today for office visit for follow up. She previously had to see the wound care for a venous stasis ulcer. Does not recall any injury on her right leg. Started small and is getting better. Is having issues sitting her legs down most of the day. We discussed elevating legs. Is on hctz No fever or chills. No redness or warmth. Cleaning with soap and water. Using a cream that she had from the wound center. No left sided chest pain. No increased shortness of breath. MEDICATIONS: Current Outpatient Medications Medication Sig arformoterol (BROVANA) 15 mcg/2 mL nebulizer solution Inhale 2 mL as instructed every 12 hours. Maymix with Budesonide neb twice a day. budesonide (PULMICORT) 0.5 mg/2 mL nebulizer solution Use 2 mL via nebulizer twice daily. metFORMIN (GLUCOPHAGE) 500 mg tablet Take 1 tablet by mouth daily with breakfast. metoprolol succinate ER (TOPROL XL) 50 mg 24 hr tablet Take 3 tablets by mouth once daily. rOPINIRole (REQUIP) 0.5 mg tablet Take 3 tablets by mouth daily at bedtime. sertraline (ZOLOFT) 50 mg tablet Take 1 tab once a day. oxybutynin XL (DITROPAN XL) 5 mg 24 hr tablet Take 1 tablet by mouth once daily. fluticasone (FLONASE) 50 mcg/actuation nasal spray USE 1 SPRAY IN EACH NOSTRIL ONCE DAILY. baclofen (LIORESAL) 10 mg tablet Take 1 tablet by mouth three times daily. hydroCHLOROthiazide (HYDRODIURIL, ESIDRIX) 12.5 mg capsule Take 2 capsules by mouth once daily. meloxicam (MOBIC) 15 mg tablet Take 1 tablet by mouth once daily. With food. gabapentin (NEURONTIN) 100 mg capsule Take 1 capsule by mouth three times daily for 180 days. Lancets lancets Test blood sugar(s) 2 times daily. Dx: Type 2 DM - Controlled E11.9 Insulin: No blood sugar diagnostic (BLOOD GLUCOSE TEST) test strip Test blood sugar(s) 2 times daily. Dx: Type 2 DM - Controlled E11.9 Insulin: No ipratropium-albuterol (DUONEB) 0.5 mg-3 mg(2.5 mg base)/3 mL nebu Inhale 3 mL as instructed every 4hours as needed (Shortness of breath and wheezing). albuterol HFA (VENTOLIN HFA) 90 mcg/actuation inhaler Inhale 2 Puffs as instructed every 4 hours asneeded for Wheezing/Shortness of Breath. COMPOUNDED PRESCRIPTION Oxygen via nasal canula 2 L N/C DX: copd and hypoxia COMPOUNDED PRESCRIPTION Lightweight portable oxygen DX: copd, 2 L nc continuously No current facility-administered medications for this visit. 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 Perry (vascular) Fibromyalgia HTN (hypertension) OA (osteoarthritis) MICHEL (obstructive sleep apnea) not on CPAP Restless leg syndrome PAST SURGICAL HISTORY Procedure Laterality Date HYSTERECTOMY HX prolapse non ca, total TONSILLECTOMY HX FAMILY HISTORY Problem Relation Age of Onset other (lymphoma) Mother COPD Father other (bone cancer) Father Ischemic Heart Disease Son 33 Social History Tobacco Use Smoking status: Former Packs/day: 0.50 Years: 45.00 Pack years: 22.50 Types: Cigarettes Start date: 08/30/1966 Quit date: 01/29/2012 Years since quittin.4 Smokeless tobacco: Never Tobacco comments: Father smoked in childhood home. Spouse smoked briefly after marriage. Substance Use Topics Alcohol use: No Drug use: No Reviewed current medications, allergies, past medical history, surgical history, family history andsocial history today. REVIEW OF SYSTEMS All other reviewed and negative other than HPI. VITALS: BP 124/82 Pulse 64 Wt 93 kg (205 lb) SpO2 95% BMI 35.19 kg/m Last 4 Encounter Wt Readings: Date: Wt: 07/17/2022 93 kg (205 lb) 06/20/2022 91.6 kg (202 lb) 03/20/2022 94.8 kg (209 lb) 09/18/2021 97.1 kg (214 lb) PHYSICAL EXAMINATION: General appearance: Well appearing, alert, in no acute distress, well-hydrated, well nourished. Skin: has a large venous stasis ulcer. Has open granulation tissue with serous drainage. Has venousstasis changes. Mild redness around it that is tender. No red streaks. Lungs: Lungs clear to auscultation. No wheezing, rhonchi, rales Heart: RRR without murmur, gallop, or rubs. No ectopy Abdomen: Normal abdominal exam, Abdomen soft, non-tender. Bowel sounds normal. No masses, organomegaly Extremities: one plus chronic edema. ASSESSMENT/PLAN: 1. Venous stasis ulcer of right calf without varicose veins, unspecified ulcer stage (HCC) - ICD9: 459.81, 707.12, ICD10: I87.2, L97.219 (primary diagnosis) - continue treatment. Elevate legs prn. Add keflex Red flags for re-assessment reviewed with patient in detail. - Discussed risks and benefits of new medication with the patient. Advised them to call if any sideeffects or questions. - CONSULT TO NON-[facility] FACILITY - CEPHALEXIN 500 MG CAPSULE 2. Essential hypertension - ICD9: 401.9, ICD10: I10 - good control - Goal of BP <130/80 3. Type 2 diabetes mellitus without complication, without long-term current use of insulin (HCC) - ICD9: 250.00, ICD10: E11.9 Controlled. - Continue current medications Jalyn Smith MD documented in this encounterBlanchard Valley [facility]02-09-2023 Instructions* Patient Instructions* Kalpana Sharif LPN - 07/17/2022 10:18 AM EST User name [id number] documented in this encounterBlanchard Valley Health System02-08-2023 Miscellaneous Notes* Telephone Encounter - Casandra Burrell LPN - 07/16/2022 11:36 AM EST Daughter notified. Patient scheduled. * Telephone Encounter - Jalyn Smith MD - 07/16/2022 10:12 AM EST I think they were calling her to find out what is going on with the cut. Usually we might need to see it to prescribe * Telephone Encounter - Mala Montgomery RN - 07/15/2022 5:46 PM EST patients daughter returned call but there is nothing that states if an orders was approved and faxed or not or if more information is needed. please review and advise and contact daughter back with information * Telephone Encounter - Nisha Valencia Ma - 07/15/2022 4:59 PM EST Left message for patient to return call. Nisha Valencia Ma * Telephone Encounter - Tracy Cedeño Pss - 07/15/2022 11:34 AM EST Daughter is calling in stating patient has a cut on rt leg and thinks it is going to require wound care and asking if you could fax order for this to [facility] wound care. Please advise daughter Karson. documented in this encounterBlanchard Valley Health System02-01-2023 History of Present illness Narrative* Darlene Urbano RN - 07/09/2022 11:04 AM EST INSIGHT [facility] TELEPHONIC OUTREACH Provider Action/FYI: 2nd attempt Last [facility] CDM contact 04/07/22 Since previous [facility] Telephonic Outreach: REYMUNDO [place] visit Contact made with patient: No - Left message Helgray my name is Darlene Ubrano RN your Front Office Manager from the [facility] I am calling today for your bi-weekly check in. I am sorry I missed your call. I will reach out to you again tomorrow. (if the third call I will reach out to you again next week) Enter next patient outreach date for the following business day using the Track Pt Outreach. End outreach. * Darlene Urbano RN - 07/08/2022 3:45 PM EST INSIGHT [facility] TELEPHONIC OUTREACH Provider Action/FYI: Last [facility] CDM contact 04/07/22 Since previous [facility] Telephonic Outreach: REYMUNDO [place] visit Contact made with patient: No - Left message Hello my name is Darlene Urbano RN your Front Office Manager from the [facility] I am calling today for your bi-weekly check in. I am sorry I missed your call. I will reach out to you again tomorrow. (if the third call I will reach out to you again next week) Enter next patient outreach date for the following business day using the Track Pt Outreach. End outreach. documented in this encounterBlanchard Valley Health System01-26-2023 Miscellaneous Notes* Telephone Encounter - Staci Zamorano LPN - 07/03/2022 8:25 AM EST Patient phones requesting refills as follows: Requested Prescriptions Pending Prescriptions Disp Refills arformoterol (BROVANA) 15 mcg/2 mL nebulizer solution 360 mL 1 Sig: Inhale 2 mL as instructed every 12 hours. May mix with Budesonide neb twice a day. Please review and advise. Staci Zamorano LPN documented in this encounterBlanchard Valley Health System01-23-2023 Miscellaneous Notes* Telephone Encounter - Natalie Gonzalez Ma - 06/30/2022 6:25 PM EST These were already refilled today. Natalie Gonzalez Ma documented in this encounterBlanchard Valley Health System01-19-2023 Miscellaneous Notes* Telephone Encounter - Casandra Burrell LPN - 06/26/2022 12:16 PM EST Patient has been identified by name and date of : Yes Patient phones for refill(s): Requested Prescriptions Pending Prescriptions Disp Refills sertraline (ZOLOFT) 50 mg tablet 90 tablet 1 Sig: Take 1 tab once a day. oxybutynin XL (DITROPAN XL) 5 mg 24 hr tablet 90 tablet 1 Sig: Take 1 tablet by mouth once daily. Date of last office visit in primary care: 03/20/22 Please advise. Thank you. Casandra Burrell LPN documented in this encounterBlanchard Valley Health System01-13-2023 History of Present illness Narrative* Zackery Mayfield MD - 06/20/2022 10:00 AM EST Images from the original note were not included. . Respiratory [place] Note Patient name: Kandi Correia PCP: Jalyn Smith MD CC: Follow-up COPD HPI: Kandi Correia 76 year old obese female former smoker for 45 years having quit in 2011 with PMH significant for HTN, fibromyalgia, descending aortic aneurysm with dissection, MICHEL not on CPAP andCOPD (FEV1 0.68 L 32%) on chronic oxygen former patient of Dr. Avila, new to me. Patient had previously been on Trelegy Ellipta but developed significant dysphonia and throat issues. Current therapy consists of budesonide nebulized twice daily mixed with DuoNeb. She will use DuoNeb once or twice during the daytime for shortness of breath. Main symptoms are significant dyspnea on exertion chest congestion with clear mucus production. She uses Mucinex with relief of her chest congestion but does not take medication on a regular basis. No audible wheezing. Chronic lower extremity edema. No recent upper respiratory infection. No recent hospitalizations for her COPD. DME: [facility] DATA: PFT: Review pulmonary function test shows severe obstruction Labs: Component Ref Range & Units 3 mo ago (03/20/22) WBC 3.70 - 11.00 k/uL 5.80 RBC 3.90 - 5.20 m/uL 3.85 Low Hemoglobin 11.5 - 15.5 g/dL 11.8 Hematocrit 36.0 - 46.0 % 38.3 MCV 80.0 - 100.0 fL 99.5 MCH 26.0 - 34.0 pg 30.6 MCHC 30.5 - 36.0 g/dL 30.8 RDW-CV 11.5 - 15.0 % 12.8 Platelet Count 150 - 400 k/uL 271 MPV 9.0 - 12.7 fL 9.5 Neut% % 65.8 Abs Neut 1.45 - 7.50 k/uL 3.81 Lymph% % 18.4 Abs Lymph 1.00 - 4.00 k/uL 1.07 [place]% % 10.7 Abs [place] <0.87 k/uL 0.62 Eosin% % 3.6 Abs Eosin <0.46 k/uL 0.21 Baso% % 1.0 Abs Baso <0.11 k/uL 0.06 Immature Gran % % 0.5 Abs Immature Gran <0.10 k/uL 0.03 NRBC /100 WBC 0.0 Absolute nRBC <0.01 k/uL <0.01 Diff Type Auto Imaging / Diagnostic Studies: DATE OF EXAM: Apr 18 2022 1:41PM [facility] 0123 - CTA CHEST (NONGATED) W IVCON / PROCEDURE REASON: multiple diagnoses COMPARISON: November 23, 2020 comparison is not available. Comparison study dated January 14, 2019 RESULT: Limitations: None. Chest: Limitations: None. Lines, tubes, and devices: None. Lung parenchyma and airways: Centrilobular emphysema. Calcified granuloma involving the posterior medial aspect of the right lower lobe. Patchy infiltrate is seen within the peripheral and posterior aspect of the left upper lobe. Punctate subpleural nodularity involving the peripheral aspect left lower lobe (series 3 image 38), unchanged from the prior exam. No pneumothorax. Central airways are patent. Pleural space: No pleural effusion. No pleural thickening. Lower neck, lymph nodes, and mediastinum: Calcified mediastinal lymph nodes. No axillary or mediastinal adenopathy. Heart, pericardium, and thoracic vessels: Atherosclerotic calcifications involving the coronary arteries. Possible calcification of the mitral annulus. Great vessels are normal in position and size. Cardiac chambers are unremarkable in appearance. Stable [place] type B dissection extending from the distal thoracic aorta to the origin of the left external iliac artery. Celiac trunk, superior mesenteric artery, renal arteries, inferior mesenteric artery extend off the true lumen and are patent. The left external iliac artery appears to extendpartially off the false lumen. Moderate soft tissue plaque involving the false lumen. Abdomen / Pelvis: Liver: No mass. Diffuse fatty infiltration liver. Biliary: No bile duct dilation. No calcified gallstones are seen. Spleen: No mass. No splenomegaly. Pancreas: Calcifications involving the pancreatic tail. Calcifications involving the pancreatic head and uncinate process. Adrenals: No mass. Kidneys: Simple appearing cortical cyst involving the posterior interpolar left kidney. Additional probable cortical cysts with the left kidney. No renal calculus or hydronephrosis. Probable small right renal cortical cysts which are too small to fully characterize. No renal calculus or hydronephrosis. GI tract: Fecal residue in the colon. No acute inflammatory process identified involving the bowel.No evidence of bowel obstruction. Lymph nodes: No abdominal or pelvic lymphadenopathy. Mesentery/Peritoneum: No ascites or mass. Retroperitoneum: No mass. Vasculature: See above. Pelvis: No free fluid or free air identified. Bladder is unremarkable in appearance. No inguinal hernia, mass, or adenopathy. Bones/Soft Tissues: Spondylosis and curvature of the thoracic and lumbar spine. No acute osseous abnormality identified. IMPRESSION: Stable appearing Vin type B dissection. Possible peripheral and posterior infiltrate within the left upper lobe. Hepatic steatosis. I personally reviewed the images which are pertinent for emphysema PAST MEDICAL HISTORY Diagnosis Date COPD (chronic obstructive pulmonary disease) (HCC) Degenerative disc disease Depression Descending thoracic aortic dissection 12/22/[address] Perry (vascular) Fibromyalgia HTN (hypertension) OA (osteoarthritis) MICHEL (obstructive sleep apnea) not on CPAP Restless leg syndrome ALLERGIES Allergen Reactions Lisinopril Other: See Comments cough Lyrica [Pregabalin] Swelling budesonide (PULMICORT) 0.5 mg/2 mL nebulizer solution Use 2 mL via nebulizer twice daily. ipratropium-albuterol (DUONEB) 0.5 mg-3 mg(2.5 mg base)/3 mL nebu Inhale 3 mL as instructed every 4hours as needed (Shortness of breath and wheezing). arformoterol (BROVANA) 15 mcg/2 mL nebulizer solution Inhale 2 mL as instructed every 12 hours. Maymix with Budesonide neb twice a day. fluticasone (FLONASE) 50 mcg/actuation nasal spray USE 1 SPRAY IN EACH NOSTRIL ONCE DAILY. baclofen (LIORESAL) 10 mg tablet Take 1 tablet by mouth three times daily. sertraline (ZOLOFT) 50 mg tablet Take 1 tab once a day. hydroCHLOROthiazide (HYDRODIURIL, ESIDRIX) 12.5 mg capsule Take 2 capsules by mouth once daily. oxybutynin XL (DITROPAN XL) 5 mg 24 hr tablet Take 1 tablet by mouth once daily. metFORMIN (GLUCOPHAGE) 500 mg tablet Take 1 tablet by mouth daily with breakfast. metoprolol succinate ER (TOPROL XL) 50 mg 24 hr tablet Take 3 tablets by mouth once daily. meloxicam (MOBIC) 15 mg tablet Take 1 tablet by mouth once daily. With food. gabapentin (NEURONTIN) 100 mg capsule Take 1 capsule by mouth three times daily for 180 days. Lancets lancets Test blood sugar(s) 2 times daily. Dx: Type 2 DM - Controlled E11.9 Insulin: No blood sugar diagnostic (BLOOD GLUCOSE TEST) test strip Test blood sugar(s) 2 times daily. Dx: Type 2 DM - Controlled E11.9 Insulin: No rOPINIRole (REQUIP) 0.5 mg tablet Take 3 tablets by mouth daily at bedtime. albuterol HFA (VENTOLIN HFA) 90 mcg/actuation inhaler Inhale 2 Puffs as instructed every 4 hours asneeded for Wheezing/Shortness of Breath. COMPOUNDED PRESCRIPTION Oxygen via nasal canula 2 L N/C DX: copd and hypoxia COMPOUNDED PRESCRIPTION Lightweight portable oxygen DX: copd, 2 L nc continuously Social History Tobacco Use Smoking status: Former Packs/day: 0.50 Years: 45.00 Pack years: 22.50 Types: Cigarettes Start date: 08/30/1966 Quit date: 01/29/2012 Years since quittin.3 Smokeless tobacco: Never Tobacco comments: Father smoked in childhood home. Spouse smoked briefly after marriage. Substance Use Topics Alcohol use: No Drug use: No FAMILY HISTORY Problem Relation Age of Onset other (lymphoma) Mother COPD Father other (bone cancer) Father Ischemic Heart Disease Son 33 PAST SURGICAL HISTORY Procedure Laterality Date HYSTERECTOMY HX prolapse non ca, total TONSILLECTOMY HX PMH, Social history, family history and surgical history reviewed and updated in EMR REVIEW OF SYSTEMS: CONSTITUTIONAL: No fevers, chills, nightsweats, unintended weight loss or weight gain HEENT: Some nasal congestion/sinus symptoms CARDIOVASCULAR: No chest pain, palpitations, orthopnea, PND. Chronic edema PULM: See HPI GI: No dysphagia/odynophagia, problematic reflux, changes in stool habits NEURO: Balance issues with history of falls PSY: No concerns regarding depression, anxiety INTEGUMENTARY: Dry skin erythema PHYSICAL EXAMINATION: Wt 202 lb (91.6kg) SpO2 90[3 liters]% BP 144/80, pulse 79, RR 18 General Appearance: Obese, elderly female, NAD Skin: Skin color, texture, turgor normal, no suspicious rashes or lesions. Chronic dermastasis lower extremities Head: Normocephalic, no masses, lesions, tenderness or abnormalities. Oropharynx: Upper plate, no oral lesions or thrush Neck: No JVD, no masses, no adenopathy Chest wall: Kyphosis Lungs: Not labored, normal to percussion, very diminished breath sounds, no wheezes or crackles Heart: Regular rate and rhythm, no murmurs gallops Extremities: Chronic edema with derma stasis, no clubbing Assessment/Plan: 1. Severe COPD, GOLD 3 -She will continue on nebulized budesonide twice daily. Added Brovana to mix with her budesonide -Continue as needed DuoNeb -Instructed to use Mucinex daily -Up-to-date on vaccinations -Low-dose chest CT for cancer screening based on oxygen dependence, severity of her COPD and comorbidities 2. Dependence on continuous supplemental oxygen -Continue supplemental oxygen 3. Class I obesity -BMI 34 -Weight loss advised Zackery Mayfield MD Respiratory [place] documented in this encounterBl[facility] History of Present illness Narrative* Verónica Sanchez MA - 06/13/2022 11:52 AM EST POPULATION HEALTH NAVIGATION OUTREACH Action/I Patient is on [facility] list for below gaps and needs appt to address : J43.9 - Emphysema of lung (HCC) - [id number] Last Billed 03/20/2022
E11.9 - Type 2 diabetesmellitus without complication, without long-term current use of insulin (HCC) - [id number] Last Billed 03/20/2022
F33.41 - Recurrent major depression in partial remission ([facility]) - [id number] LastBilled 08/16/2021
J96.11 - Chronic respiratory failure with hypoxia (HCC) - [id number] Last Billed 08/16/2021
Care gaps/appts to address: Return in about 6 months (around 09/18/2022). DILATED RETINAL EXAM MAMMOGRAM COLORECTAL CANCER SCREENING ADVANCE DIRECTIVE DISCUSSION Outcomes: Left message for patient to call me back directly to schedule. Also sent [employer] message. Pt identified by name and : NO Outreach Outcome/Action Unable to reach patient: Left message [employer] message sent Did you use a PCP flex slot to schedule this appointment? N/A Reason for Outreach HCC or suspected condition Payer: Payor: [employer] MEDICARE / Plan: HU[employer]NA MEDICARE PPO / Product Type: PPO / Care Gap Reviewed:: Follow-up appointment Breast Cancer screening Colorectal Cancer Screening Diabetic Eye Exam Reminder: Reminder note to check Health Maintenance for items below Health Maintenance items due: DILATED RETINAL EXAM Never done HEPATITIS C SCREENING Never done ALPHA-1 ANTITRYPSIN DEFICIENCY SCREENING Never done LUNG CANCER SCREENING Never done SHINGRIX VACCINE(1 of 2) Never done MAMMOGRAM due on 01/05/2020 COLORECTAL CANCER SCREENING due on 03/26/2022 ADVANCE DIRECTIVE DISCUSSION due on 06/08/2022 Navigation Signature: Verónica Sanchez MA June 13, 2022 11:53 AM documented in this encounterBlanchard [facility]01-03-2023 History of Present illness Narrative* Darlene Urbano RN - 06/10/2022 9:07 AM EST INSIGHT [facility] TELEPHONIC OUTREACH Provider Action/FYI: 2nd attempt Last PCC CDM contact 04/07/22 Appointments for Next 60 Days Date Time Provider Dept Phone 06/20/2022 10:00 AM ZACKERY MAYFIELD [phone] Contact made with patient: No - Left message Poonam my name is Darlene Urbano RN your Front Office Manager from the [facility] I am calling today for your bi-weekly check in. I am sorry I missed your call. I will reach out to you again tomorrow. (if the third call I will reach out to you again next week) Enter next patient outreach date for the following using the Track Pt Outreach. End outreach. documented in this encounterBlanchard Valley [facility] System12-30-2022 History of Present illness Narrative* Darlene Urbano RN - 06/06/2022 11:25 AM EST INSIGHT CD TELEPHONIC OUTREACH Provider Action/FYI: Last PCC CDM contact 04/07/22 Appointments for Next 60 Days Date Time Provider Dept Phone 06/20/2022 10:00 AM ZACKERY MAYFIELD [phone] Contact made with patient: No - Left message Helgray my name is Darlene Urbano RN your Front Office Manager from the [facility] I am calling today for your bi-weekly check in. I am sorry I missed your call. I will reach out to you again tomorrow. (if the third call I will reach out to you again next week) Enter next patient outreach date for the following business day using the Track Pt Outreach. End outreach. documented in this encounterBlanchard Valley [facility] System12-01-2022 History of Present illness Narrative* Darlene Urbano RN - 05/08/2022 12:43 PM EST INSIGHT [facility] TELEPHONIC OUTREACH Provider Action/FYI: 2nd attempt Since previous [facility] Telephonic Outreach: Thoracic aorta CT scan Appointments for Next 60 Days Date Time Provider Location Dept Phone 06/20/2022 10:00 AM ZACKERY MAYFIELD [phone] Contact made with patient: No - Left message Poonam my name is Darlene Urbano RN your Front Office Manager from the [facility] I am calling today for your bi-weekly check in. I am sorry I missed your call. I will reach out to you again tomorrow. (if the third call I will reach out to you again next week) Enter next patient outreach date for the following business day using the Track Pt Outreach. End outreach. * Darlene Urbano RN - 05/07/2022 4:18 PM EST INSIGHT [facility] TELEPHONIC OUTREACH Provider Action/FYI: Contact made with patient: No - Unable to leave message Entered next patient outreach date for the following business day, if third call please enter next outreach date for one week in the Track Pt. Outreach - End Outreach documented in this encounterBlanchard Valley [facility] System11-11-2022 Miscellaneous Notes* Telephone Encounter - Pema Nayak - 04/18/2022 4:31 PM EST Left VM to schedule OV. Annual f/up - Dissecting aneurysm of thoracic aorta (CT on 04/18/22)(Dr Perry Patient) documented in this encounterBlanchard Valley Health System11-11-2022 History of Present illness Narrative* Rolf Mcfadden RT(R) - 04/18/2022 1:00 PM EST Radiology Service Progress Note DATE OF SERVICE: April 18, 2022 TIME: 3:56 PM PATIENT IDENTITY VERIFICATION COMPLETED USING TWO (2) STANDARD IDENTIFIERS: Name and Date of confirmed by patient verbally. FALL SCREENING: Has the patient had 2 falls in the last year or 1 fall with injury or currently using an Ambulatory Assistive Device (Walker, Cane, Wheelchair, Crutches, etc.)? No PATIENT GENDER DATA: Female. status: : No status: NO. PATIENT RELEVANT IMPLANT DATA REVIEWED: Yes ALLERGIES: Reviewed and unchanged CONTRAST ALLERGY: NO. EXAM: CT -CONTRAST INDUCED NEPHROPATHY RISK FACTORS: Patient age > 60 years CREATININE: Creatinine Date Value Ref Range Status 03/20/2022 0.80 0.58 - 0.96 mg/dL Final 01/11/2021 0.81 0.58 - 0.96 mg/dL Final 11/01/2020 0.67 0.58 - 0.96 mg/dL Final Estimated Glomerular Filtration Rate Date Value Ref Range Status 03/20/2022 77 >=60 mL/min/1.73m Final Comment: Estimated Glomerular Filtration Rate (eGFR) is calculated using the 2020 CKD-EPI creatinine equation. This equation utilizes serum creatinine, sex, and age as parameters. The creatinine assay has traceable calibration to isotope dilution- mass spectrometry. Refer to KDIGO guidelines for clinical interpretation. In patients with unstable renal function, e.g. those with acute kidney injury, the eGFRmay not accurately reflect actual GFR. eGFR- Date Value Ref Range Status 01/11/2021 >60 Final P.O.C.T. RESULTS: POC done: Yes, See Lab Tab April 18, 2022 TREATMENT: N/A PERIPHERAL IV DATA: Ambulatory: A peripheral IV was started in the Left antecubital site with a Angio cath: 18 gauge. RADIOLOGY DEPARTMENT: CT; Exam(s) Completed: ct chest /abd/pelvis SIGNATURE: RT Marisol(R) PATIENT NAME: Kandi Correia DATE: April 18, 2022 TIME: 3:56 PM documented in this encounterBlanchard Valley Health System11-01-2022 History of Present illness Narrative* Darlene Urbano RN - 04/08/2022 11:47 AM EDT INSIGHT CDM TELEPHONIC OUTREACH Provider Action/FYI: Injections in knees not giving her relief Patient doubting if she should have the upcoming CT scan - read Dr Smith's MYCHART response: I would still follow it. There are other things to do rather than surgery. I would call in to schedule it. Listened to her concerns and responded with HEART Patient using ventolin PRN - no worsening SOB, or cough. Reminded patient about [facility] [phone] Contact made with patient: Yes Patient identified by name and . Discussed care with patient It s nice talking to you again. As a reminder, this is our bi-weekly check-in where I will be asking you questions about your health. This will only take a few minutes of your time. Is this a good time? Yes Symptoms What Chronic Disease(s) does the patient have: COPD Do you check your blood pressures at home? No Do you have new or worse shortness of breath with activity? No Do you have new or worsening cough? No Do you have new or worsening wheezing? No Do you need to use your rescue (Albuterol) inhaler or nebulizer more often than normal? No Are you having any other symptoms that your PCP needs to know about? No Symptom Escalation The patient required an escalation for symptom(s)? No Medications Do you have any questions about taking your medication or which medications you should be on? No Do you need any medication refills at this time, including any of the medications you might take only when needed? No Social We would like to make sure you have what you need so that your basic needs are met- including your personal safety, food, housing and medications? Would you like to speak with a social work steaming machine operator to help give you support for any of these needs? No It can be normal to feel anxious or down during a time like this. Would you like to talk to a mental health professional about how you have been feeling? No Closing Thank you for taking the time to talk with me today. We want to work with you to ensure that we arekeeping your medical condition(s) well-controlled and to keep you healthy and out of the doctor's office or hospital. It s also not too late for me to sign you up for automated weekly questionnaires through [employer]. This is an easy way for us to stay connected each week. Are you interested? No, I understand. We can always sign you up in the future if you change your mind. Just as a reminder, will continue to call you every other week to check in on your health. Our calls should take 10-15 minutes or less. Remember, if you have concerns in between our calls, please call your PCP's office right away. Thank you. Enter next patient outreach date for two weeks on the same day of the week as today in the Track PtOutreach and End outreach. * Darlene Urbano RN - 04/08/2022 8:41 AM EDT inSight CDM Engagement Provider Action/FYI: 2nd attempt No questionnaires answered since enrollment 02/19/22 Discontinued questionnaire series. Updated inSight status to telephonic Appointments for Next 60 Days Date Time Provider Location Dept Phone 04/18/2022 1:00 PM [facility] (I-STAT) Nila Hernandez [phone] [facility]22 [facility] [phone] Contact Made with Patient: Yes Patient identified by name and . Discussed care with patient Poonam urbano name is Darlene Urbano RN your Front Office Manager from Jalyn Smith MD office at the [facility]. I am reaching out today because I noticed it has been a few weeks since I have seen any responses from you on your questionnaire. I wanted to check on you and make sure you are doing well, and to remind you that your Jalyn Smith MD recommended this program for you so that you can st ay better connected to your health. I will be monitoring your responses on the questionnaire to make sure we are not seeing any changes in your health that your Primary Care Physician needs to know about, or looking for improvements and keeping Jalyn Smith MD informed about it all. You and I will check in together anytime a problem arises, and determine a solution. I am here to help you stay healthy, and stay connected to your doctor's office. How can I help you in this program? The patient informs that she no longer has Internet access (Consider offering telephonic outreach.) Patient agrees to telephonic outreach: Yes (Change enrollment to Telephonic under inSight status next outreach in two (2) weeks.) Patient accepts telephonic outreach Thank you for your time today. I am excited to work together inmanaging your health! I will check back within in two weeks to see how things are going. If questions or concerns arise between phone calls, please reach out to your PCP s office. (Place in active status for inSight and place name in care team and update next patient outreach data to next business d ay two weeks from today s date) * Darlene Urbano RN - 04/07/2022 11:48 AM EDT inSight CDM Engagement Provider Action/FYI: No questionnaires answered since enrollment 02/19/22 Discontinued questionnaire series. Updated inSight status to telephonic Contact Made with Patient: No, first attempt, left message. Poonam Correia. This is Darlene Urbano RN your Front Office Manager from the [facility]. I am calling to check in with you concerning the MyChart questionnaire you have been receiving from me.I will call you again tomorrow and am looking forward to speaking with you. (Front Office Manager enters next day in next patient outreach) documented in this encounterBlanchard Valley Health System10-18-2022 Miscellaneous Notes* Telephone Encounter - Violeta Chandra RN - 03/25/2022 10:35 AM EDT [facility] OUTREACH Provider Action/FYI: Patient misplaced number to call and schedule Cologuard warp picker. This nurse was given a number to call, by the time patient was called back, patient had found the information on line. Poonam, you've reached [facility], my name is Violeta M Prateek, RN, I'm a registered nurse, and we are on a recorded line. Patient identified by name and date of Spoke with patient Verify that the patient is a [facility] patient: Yes Are you having any symptoms today? No - What is the reason for call? FYI for PCP: If clinical or at request of patient place in FYI box and route to PCP. Call Disposition: Call resolution with [facility] RN: Homecare Advice - Patient able to treat at home Thank you for calling [facility]. If you develop any new symptoms, your condition worsens, then GO TO THE EMERGENCY ROOM OR CALL 911. If you have any questions, please call us back. documented in this encounterBlanchard Valley Health System10-13-2022 History of Present illness Narrative* Jalyn Smith MD - 03/20/2022 10:46 AM EDT Patient presents with: Follow Up HPI: Patient presents today for office visit for 6 month follow up. Released from wound center 02/07/22. Wound healed after placenta therapy. Still on oxygen. No falls. Using walker to fall. DM:due for labs. Does not check sugars. HYPERTENSION:bp is well controlled. No chest pain or shortness of breath. Has occasional swelling in her right leg. Does sometimes have Vascular:never followed up as ordered after her hospitalization like she was to. Is asymmetric. URO:no new issues with her urine. PSYCH:she is doing well. She is pleasant and laughing. PULM:ovedue for follow up. MEDICATIONS: Current Outpatient Medications Medication Sig baclofen (LIORESAL) 10 mg tablet Take 1 tablet by mouth three times daily. sertraline (ZOLOFT) 50 mg tablet Take 1 tab once a day. hydroCHLOROthiazide (HYDRODIURIL, ESIDRIX) 12.5 mg capsule Take 2 capsules by mouth once daily. oxybutynin XL (DITROPAN XL) 5 mg 24 hr tablet Take 1 tablet by mouth once daily. metFORMIN (GLUCOPHAGE) 500 mg tablet Take 1 tablet by mouth daily with breakfast. metoprolol succinate ER (TOPROL XL) 50 mg 24 hr tablet Take 3 tablets by mouth once daily. meloxicam (MOBIC) 15 mg tablet Take 1 tablet by mouth once daily. With food. gabapentin (NEURONTIN) 100 mg capsule Take 1 capsule by mouth three times daily for 180 days. budesonide (PULMICORT) 0.5 mg/2 mL nebulizer solution Use 2 mL via nebulizer twice daily. Lancets lancets Test blood sugar(s) 2 times daily. Dx: Type 2 DM - Controlled E11.9 Insulin: No blood sugar diagnostic (BLOOD GLUCOSE TEST) test strip Test blood sugar(s) 2 times daily. Dx: Type 2 DM - Controlled E11.9 Insulin: No rOPINIRole (REQUIP) 0.5 mg tablet Take 3 tablets by mouth daily at bedtime. fluticasone (FLONASE) 50 mcg/actuation nasal spray Use 1 [place] in each nostril once daily. ipratropium-albuterol (DUONEB) 0.5 mg-3 mg(2.5 mg base)/3 mL nebu Inhale 3 mL as instructed every 4hours as needed (Shortness of breath and wheezing). albuterol HFA (VENTOLIN HFA) 90 mcg/actuation inhaler Inhale 2 Puffs as instructed every 4 hours asneeded for Wheezing/Shortness of Breath. COMPOUNDED PRESCRIPTION Oxygen via nasal canula 2 L N/C DX: copd and hypoxia COMPOUNDED PRESCRIPTION Lightweight portable oxygen DX: copd, 2 L nc continuously Current Facility-Administered Medications Medication Dose Route Frequency perflutren lipid microspheres 1.3 mL in NaCl (PF) 0.9% 10 mL injection (DEFINITY) INTRAVENOUS DIRECTED PRN sodium chloride 0.9 % (flush) 10 mL (BD POSIFLUSH) 10 mL INTRAVENOUS DIRECTED PRN ALLERGIES: ALLERGIES Allergen Reactions Lisinopril Other: See Comments cough Lyrica [Pregabalin] Swelling PAST MEDICAL HISTORY Diagnosis Date COPD (chronic obstructive pulmonary disease) (HCC) Degenerative disc disease Depression Descending thoracic aortic dissection 12/22/[address] Perry (vascular) Fibromyalgia HTN (hypertension) OA (osteoarthritis) Restless leg syndrome PAST SURGICAL HISTORY Procedure Laterality Date HYSTERECTOMY HX prolapse non ca, total TONSILLECTOMY HX FAMILY HISTORY Problem Relation Age of Onset other (lymphoma) Mother COPD Father other (bone cancer) Father Ischemic Heart Disease Son 33 Social History Tobacco Use Smoking status: Former Packs/day: 0.50 Years: 45.00 Pack years: 22.50 Types: Cigarettes Start date: 08/30/1966 Quit date: 01/29/2012 Years since quittin.1 Smokeless tobacco: Never Tobacco comments: Father smoked in childhood home. Spouse smoked briefly after marriage. Substance Use Topics Alcohol use: No Drug use: No Reviewed current medications, allergies, past medical history, surgical history, family history andsocial history today. REVIEW OF SYSTEMS All other reviewed and negative other than HPI. HEALTH MAINTENANCE: Reviewed health maintenance issues today and recommended the following in detail. DILATED RETINAL EXAM-reminded. SHINGRIX VACCINE(1 of 2) Never done MAMMOGRAM due -declines. COLORECTAL CANCER SCREENING-declines. ADVANCE DIRECTIVE DISCUSSION -has dpoa, her daughters are surrogates. LDL CHOLESTEROL due on 07/31/2021 URINE ALBUMIN:CREATININE RATIO due on 08/08/2021 DIABETIC FOOT EXAM due on 08/20/2021 COVID-19 VACCINE(4 - Booster for Moderna series) due on 09/24/2021 INFLUENZA(1) due on 02/06/2022 VITALS: BP 108/68 Pulse (!) 59 Ht 162.6 cm (5' 4) Wt 94.8 kg (209 lb) SpO2 95% BMI 35.87 kg/m Last 4 Encounter Wt Readings: Date: Wt: 03/20/2022 94.8 kg (209 lb) 09/18/2021 97.1 kg (214 lb) 08/30/2021 0 kg () 08/16/2021 98 kg (216 lb) PHYSICAL EXAMINATION: General appearance: Well appearing, alert, in no acute distress, well-hydrated, well nourished., Wheelchair, and wearing oxygen. Skin: Skin color, texture, turgor normal, no suspicious rashes or lesions Head: Normocephalic, no masses, lesions, tenderness or abnormalities Eyes: Anicteric sclera. Pupils are equally round and reactive to light. Extraocular movements are intact. Lungs: Lungs clear to auscultation. No wheezing, rhonchi, rales Heart: RRR without murmur, gallop, or rubs. No ectopy Abdomen: Normal abdominal exam, Abdomen soft, non-tender. Bowel sounds normal. No masses, organomegaly Extremities: No deformities, clubbing or cyanosis. Good capillary refill. Venous insufficiency, oneplus edema. Feet:Shoes and socks removed, normal distal pulses, sensitive to 10 gm monofilament, and calluses noted bilaterally ,hammer toe on the right. Offered podiatry if she desires. ASSESSMENT/PLAN: - reinforced bp control and need for compliance. Is way over due for follow up. - CONSULT TO VASCULAR SURGERY 2. Essential hypertension - ICD9: 401.9, ICD10: I10 - good control - Continue current medication(s) - Goal of BP <130/80 3. Dissection of descending aorta (HCC) - ICD9: 441.00, ICD10: I71.00 - CONSULT TO VASCULAR SURGERY 4. MIHCEL (obstructive sleep apnea) - ICD9: 327.23, ICD10: G47.33 - stable. 5. Type 2 diabetes mellitus without complication, without long-term current use of insulin (HCC) - ICD9: 250.00, ICD10: E11.9 Controlled. - Continue current medications - CBC + DIFF - COMP METABOLIC PANEL - LIPID PANEL BASIC - HGB A1C - ALBUMIN/CREAT RATIO RND UR 6. Centrilobular emphysema (HCC) - ICD9: 492.8, ICD10: J43.2 - over due for follow up. - CONSULT TO PULM/CRITICAL CARE 7. DDD (degenerative disc disease), lumbar - ICD9: 722.52, ICD10: M51.36 - stable 8. Screen for colon cancer - ICD9: V76.51, ICD10: Z12.11 - COLOGUARD 9. Need for influenza vaccination - ICD9: V04.81, ICD10: Z23 - INFLUENZA SEASONAL QUADRIVALENT HIGH DOSE AGE 65+ 10. Need for vaccination - ICD9: V05.9, ICD10: Z23 - PFIZER-BIONTECH COVID-19 BIVALENT BOOSTER VACCINE, AGE 12+ YR Jalyn Smith documented in this encounterBlanchard Valley Health System10-12-2022 Miscellaneous Notes* Telephone Encounter - IRAM Wharton - 03/19/2022 12:41 PM EDT Sw mailed [facility] Older Adult Resource Guide to patient. * Telephone Encounter - IRMA Wharton - 03/17/2022 12:40 PM EDT Sw spoke with patient in regards to transportation services to medical appts. Patient notes that she typically with have daughter or cousins that will help take her to medical appts. Sw notes that she has [facility] Older Adult Resource Guide with transportation information ie. [place]. Patient notes that she would like Sw to mail guide to her home for references. Vin confirmed patient address and will mail guide to home. * Telephone Encounter - IRMA Wharton - 03/12/2022 9:50 AM EDT Sw left message for patient to return Vin call to discuss transportation resources to medical appts. documented in this encounterBlanchard Valley Health System10-10-2022 History of Present illness Narrative* Genny Patterson Population Health Navigator - 03/17/2022 12:14 PM EDT POPULATION HEALTH NAVIGATION OUTREACH Action/THANIAI Received a call Jennifer FLORES Pt identified by name and : YES, via phone Outreach Outcome/Action Spoke to patient or caregiver: Patient scheduled Did you use a PCP flex slot to schedule this appointment? No Reason for Outreach Payer: Payor: [employer] MEDICARE / Plan: [employer] MEDICARE PPO / Product Type: PPO / Care Gap Reviewed:: Reminder: Reminder note to check Health Maintenance for items below Health Maintenance items due: DILATED RETINAL EXAM Never done HEPATITIS C SCREENING Never done ALPHA-1 ANTITRYPSIN DEFICIENCY SCREENING Never done LUNG CANCER SCREENING Never done SHINGRIX VACCINE(1 of 2) Never done MAMMOGRAM due on 01/05/2020 COLORECTAL CANCER SCREENING due on 06/29/2020 ADVANCE DIRECTIVE DISCUSSION Never done LDL CHOLESTEROL due on 07/31/2021 URINE ALBUMIN:CREATININE RATIO due on 08/08/2021 DIABETIC FOOT EXAM due on 08/20/2021 COVID-19 VACCINE(4 - Booster for Moderna series) due on 09/24/2021 INFLUENZA(1) due on 02/06/2022 Message Sent to Practice: Navigation Signature: Genny Patterson [place] [facility] Navigator March 17, 2022 12:15 PM documented in this encounterBlanchard Valley [facility] System09-09-2022 Miscellaneous Notes* Telephone Encounter - Violeta Latham Pss - 02/14/2022 3:02 PM EDT Patient called and was transferred to [facility] to schedule with Dr. Gabriel Glasgow. documented in this encounterBlanchard Valley Health System09-08-2022 Miscellaneous Notes* Telephone Encounter - Massiel Gabriel LPN - 02/13/2022 9:13 AM EDT APPROVED through 06/07/2022. Pt picked up rx 02/06/22. Deirdre Gabriel LPN * Telephone Encounter - Massiel Gabriel LPN - 02/05/2022 10:02 AM EDT Prior Authorization has been completed online at [employer] for Metoprolol, will await response. [place]- [id number] Please keep encounter open until final decision has been received and documented from insurance company. Deirdre Gabriel LPN documented in this encounterBlanchard Valley Health System08-26-2022 Miscellaneous Notes* Telephone Encounter - Kristina Holloway LPN - 01/31/2022 2:29 PM EDT Patient phones requesting refills as follows: Requested Prescriptions Pending Prescriptions Disp Refills metFORMIN (GLUCOPHAGE) 500 mg tablet 90 tablet 0 Sig: Take 1 tablet by mouth daily with breakfast. metoprolol succinate ER (TOPROL XL) 50 mg 24 hr tablet 270 tablet 0 Sig: Take 3 tablets by mouth once daily. JERRELL-09/18/21 Labs-01/11/21 NOV-none Please review and advise. Kristina Holloway LPN documented in this encounterBlanchard Valley Health System07-15-2022 Miscellaneous Notes* Telephone Encounter - Aj Hermosillo LPN - 12/20/2021 2:43 PM EDT Patient phones requesting refills as follows: Pending Prescriptions Disp Refills MELOXICAM 15 MG TABLET 90 tablet 3 Sig: Take 1 tablet by mouth once daily. With food. SVITLANA: No JERRELL 09/18/21 NOV no upcoming appt Please review and advise. Aj Hermosillo LPN documented in this encounterBlanchard Valley Health System06-27-2022 Miscellaneous Notes* Telephone Encounter - Tracy Peter RN - 12/02/2021 9:31 AM EDT Patient replying to message below. She states she does have enough Oxybutynin until 12/19 however was just calling in for refill early. She also states that she has been taking all other medications as ordered and does not get them filled by other providers. She states she somehow had a couple prescriptions for multiple medications that allowed her to last until this time. Tracy Peter RN * Telephone Encounter - VERA Shukla - 12/02/2021 8:23 AM EDT Oxybutynin should have enough medication until 12/19/2021. Hydrochlorothiazide would have ran out on 09/15, Zoloft would have ran out 08/25/2021 and Baclofen would have ran out 05/24/2021. Patient has not requested a refill on any until now. TC to patient to ask if patient been taking these medications or if she has had them filled by another provider. No answer, left message to return call. sent to patient. documented in this encounterBlanchard Valley Health System05-23-2022 Miscellaneous Notes* Telephone Encounter - Shaye Robles LPN - 10/28/2021 4:21 PM EDT Last office visit 09/18/2021 documented [facility] this [facility] Miscellaneous Notes* Telephone Encounter - Shaye Robles LPN - 10/28/2021 4:20 PM EDT Last office visit 09/18/2021. documented in this encounterBlanchard Valley Health System05-19-2022 Miscellaneous Notes* Telephone Encounter - Kalpana Sharif LPN - 10/24/2021 3:16 PM EDT Patient has been identified by name and date of : Yes Pending Prescriptions Disp Refills MELOXICAM 15 MG TABLET 90 tablet 3 Sig: Take 1 tablet by mouth once daily. With food. SVITLANA: No GABAPENTIN 100 MG CAPSULE 270 capsule 3 Sig: Take 1 capsule by mouth three times daily for 180 days. SVITLANA: No RX INSTRUCTIONS: Pharmacy initiated this request. No need to notify patient. Kalpana Sharif LPN documented in this [facility]05-01-[facility] History of Present illness Narrative* Darlene Urbano RN - 02/14/2022 2:53 PM EDT [facility] Enrollment Provider Action/FYI: 1st attempt to enroll in [facility] with [facility] introduction [phone] Last Jalyn Smith MD visit 09/18/21 for wound check - no future appointment scheduled Patient referred by: [facility] Contact made with patient: No - Unable to leave message: (Keep encounter open and attempt 2nd outreach in two business days from today). END OUTREACH documented in this encounterBlanchard Valley Health System05-01-2022 History of Present illness Narrative* Darlene Urbano RN - 02/17/2022 8:44 AM EDT [facility] Enrollment Provider Action/FYI: 2nd attempt to enroll in [facility] with [facility] introduction [phone] Last Jalyn Smith MD visit 09/18/21 for wound check - no future appointment scheduled Patient referred by: [facility] Oh Contact made with patient: No - 2nd attempt to reach patient, left another message: Hi my name is Darlene Urbano RN and I am calling from the [facility] on behalf of your PCP, Jalyn Smith MD. We are excited to share with you a new program to help you manage your health. Please call me backat PH . I hope you can take the time to speak with me. (Keep encounter open for additional two business days in case patient calls back. Close encounter if no response by end of second business day) Closing: Could not reach the patient after two attempted outreaches. Front Office Manager to retry patient in one week. END OUTREACH documented in this encounterBlanchard Valley Health System05-01-2022 History of Present illness Narrative* Darlene Urbano RN - 02/19/2022 1:56 PM EDT Images from the original note were not included. [facility] Enrollment Provider Action/FYI: 3rd attempt to enroll in [facility] with [facility] introduction [phone] Last Jalyn Smith MD visit 09/18/21 for wound check - no future appointment scheduled - declined offer for scheduling assistance. Has appointment with ORTH provider this Thursday (outside of clinic) Knee pain - walks with walker Patient referred by: [facility] Contact made with patient: Yes - Patient identified by name and . Discussed care with patient Poonam this is Darlene Urbano RN and I am calling from Jalyn Smith MD office at the [facility]. I am a RN Front Office Manager with our [facility] Chronic Disease Management program. Jalyn Smith MD wanted me to reach out to help you manage your health at home. Our goal is to keep you well at home. We want to help you manage your chronic disease by providing a safety net of resources around you, getting you the care you need in a timely manner, and hopefully keep you out of the ED and hospital. I will send you a few questions once a week through your [employer] account. It will automaticallyshow up for you to complete. There are simple questions that will help us identify if you have any concerns or symptoms and I will call you to help get what you need. We will be able to connect you, review your symptoms, do an on demand visit, or communicate with Jalyn Smith MD if needed. I am going to sign you up for the program now. Enrollment Questions: Let's get you enrolled in the program. Yes, Do you have regular access to a computer/smartphone? Yes. Goal Setting: I would like to take some time today to discuss your personal health goals. Yes, patient has goals. Capture the goal the patient wants to accomplish: Active Goals - Current status as of 02/19/2022 at 2:06 PM Patient Stated to have less knee pain and to avoid surgery (pt-stated) . Does the goal align with programs offered at the [facility]? No Patient accepts ambulatory care Thank you for your time today. I am excited to work together in managing your health! You will receive information on next steps through your [employer] account, and I will check back within a few weeks to ensure you have all that you need to use the program successfully. (Place name in care team and assign [employer] Webmethods Consultant questionnaire) Most people know what to do to become healthier, yet struggle to put it into action on their own.Itcan be hard to maintain a healthy lifestyle, especially when life is so stressful. Can we connect you with a [facility] Health Stock Blender to find a program that could help you meet your goals? No Closing: Patient accepts ambulatory care Thank you for your time today. I am excited to work together in managing your health! You will receive information on next steps through your [employer] account, and I will check back within a few weeks to ensure you have all that you need to use the program successfully. (Place name in care team and assign [employer] Webmethods Consultant questionnaire) documented in this encounterBlanchard Valley Health System05-01-2022 History of Present illness Narrative* Darlene Urbano RN - 03/10/2022 12:09 PM EDT [facility] CDM Engagement Provider Action/FYI: No questionnaires answered since enrollment 02/19/22 Following up to assess difficulty with questionnaire and offer telephonic outreach as an alternative. left message and sent MyChart questionnaire reminder message today Contact Made with Patient: No, first attempt, left message. Poonam Correia. This is Darlene Urbano RN your Front Office Manager from the [facility]. I am calling to check in with you concerning the MyChart questionnaire you have been receiving from me.I will call you again tomorrow and am looking forward to speaking with you. (Front Office Manager enters next day in next patient outreach) documented in this encounterBlanchard Valley Health System05-01-2022 History of Present illness Narrative* Darlene Urbano RN - 03/11/2022 8:23 AM EDT PRIMARY CARE COORDINATION QUICK NOTE Provider Action/FYI SW REFERRAL for transportation to medical appointments Reminded patient about [facility] [phone] F/u on patient MyChart message from 03/10/22 Also i have hard time making appointments when i think one of my two daughters is off--they get called in- i have a car that one of my daughters is using- but even if i drove i have a hard time loading my walker and my oxygen by myself i have transpartation services never was told how to connect with that Patient identified by name and date . documented in this encounterBlanchard Valley Health System04-18-2022 Miscellaneous Notes* Telephone Encounter - Judy Bagley - 09/23/2021 12:04 PM EDT Patient electronically requesting refills as follows: Pending Prescriptions Disp Refills BUDESONIDE 0.5 MG/2 ML SUSPENSION FOR NEBULIZATION 360 mL 3 Sig: Use 2 mL via nebulizer twice daily. SVITLANA: No Please review and advise. Judy Bagley documented in this encounterBlanchard Valley Health System04-14-2022 Miscellaneous Notes* Telephone Encounter - Jojo Traylor Ma - 09/19/2021 11:11 AM EDT Pending Prescriptions Disp Refills OXYBUTYNIN CHLORIDE ER 5 MG TABLET,EXTENDED RELEASE 24 HR 90 tablet 0 Sig: Take 1 tablet by mouth once daily. SVITLANA: No JERRELL 09/18/21 NOV 09/27/21 Jojo Traylor Ma documented in this encounterBlanchard Valley Health System04-13-2022 History of Present illness Narrative* Jalyn Smith MD - 09/18/2021 4:24 PM EDT Patient presents with: Wound Check HPI: Patient presents today for office visit for wound check: Wound is better than it was but still healing slowly. No surrounding redness or warmth. Remains open. Some bloody drainage as soon as dressing removed. No fever or chills. See previous ov: 76 year old female with c/o follow-up on laceration 08/30/2021 presented to [facility] emergency department with laceration to left lower leg which occurred last night. States the metal on the leg of her walker caught her thigh as she was getting up. Put a dressing on it overnight. Went to urgent care and was referred to the emergency department. Patient did receive Adacel booster. Physician identified wound open to long for surgical repair, applied Adaptic gauze, given dose of Keflex in the emergency room with prescription for Keflex outpatient. She is to follow-up here for recheck. Patient complains that her right knee is particularly painful, had injections while she was in the hospital from our last visit. States injections lasted 1 to 2 days at most. She is currently on meloxicam 7.5 mg daily which does not seem to help a whole lot. She would like to see an orthopedist fortreatment. Reviewed x-rays which demonstrate severe osteoarthritis. MEDICATIONS: Current Outpatient Medications Medication Sig cephALEXin (KEFLEX) 500 mg capsule Take 1 capsule by mouth every 6 hours. meloxicam (MOBIC) 15 mg tablet Take 1 tablet by mouth once daily. With food. SENNOSIDES-DOCUSATE SODIUM ORAL Take 50 mg by mouth twice daily. oxyCODONE ir (OXYIR) 5 mg capsule Take 5 mg by mouth every 4 hours as needed for pain. Lancets lancets Test blood sugar(s) 2 times daily. Dx: Type 2 DM - Controlled E11.9 Insulin: No blood sugar diagnostic (BLOOD GLUCOSE TEST) test strip Test blood sugar(s) 2 times daily. Dx: Type 2 DM - Controlled E11.9 Insulin: No gabapentin (NEURONTIN) 100 mg capsule Take 1 capsule by mouth three times daily for 180 days. rOPINIRole (REQUIP) 0.5 mg tablet Take 3 tablets by mouth daily at bedtime. metoprolol succinate ER (TOPROL XL) 50 mg 24 hr tablet Take 3 tablets by mouth once daily. hydroCHLOROthiazide 12.5 mg capsule Take 2 capsules by mouth once daily. sertraline (ZOLOFT) 50 mg tablet Take 1 tab once a day. oxybutynin XL (DITROPAN XL) 5 mg 24 hr tablet Take 1 tablet by mouth once daily. baclofen (LIORESAL) 10 mg tablet Take 1 tablet by mouth three times daily. metFORMIN (GLUCOPHAGE) 500 mg tablet Take 1 tablet by mouth daily with breakfast. fluticasone (FLONASE) 50 mcg/actuation nasal spray Use 1 [place] in each nostril once daily. ipratropium-albuterol (DUONEB) 0.5 mg-3 mg(2.5 mg base)/3 mL nebu Inhale 3 mL as instructed every 4hours as needed (Shortness of breath and wheezing). albuterol HFA (VENTOLIN HFA) 90 mcg/actuation inhaler Inhale 2 Puffs as instructed every 4 hours asneeded for Wheezing/Shortness of Breath. guaiFENesin (MUCINEX) 600 mg 12 hr tablet Take 2 tablets by mouth twice daily. acetaminophen (TYLENOL EXTRA STRENGTH) 500 mg tablet Take 1 tablet by mouth every 6 hours as neededfor Pain. multivitamin tablet Take 1 tablet by mouth once daily. budesonide (PULMICORT) 0.5 mg/2 mL nebulizer solution Use 2 mL via nebulizer twice daily. COMPOUNDED PRESCRIPTION Oxygen via nasal canula 2 L N/C DX: copd and hypoxia COMPOUNDED PRESCRIPTION Lightweight portable oxygen DX: copd, 2 L nc continuously Current Facility-Administered Medications Medication Dose Route Frequency perflutren lipid microspheres 1.3 mL in NaCl (PF) 0.9% 10 mL injection (DEFINITY) INTRAVENOUS DIRECTED PRN sodium chloride 0.9 % (flush) 10 mL (BD POSIFLUSH) 10 mL INTRAVENOUS DIRECTED PRN ALLERGIES: ALLERGIES Allergen Reactions Lisinopril Other: See Comments cough Lyrica [Pregabalin] Swelling PAST MEDICAL HISTORY Diagnosis Date COPD (chronic obstructive pulmonary disease) (HCC) Degenerative disc disease Depression Descending thoracic aortic dissection (HCC) 12/22/[address] Perry (vascular) Fibromyalgia HTN (hypertension) OA (osteoarthritis) Restless leg syndrome PAST SURGICAL HISTORY Procedure Laterality Date HYSTERECTOMY HX prolapse non ca, total TONSILLECTOMY HX FAMILY HISTORY Problem Relation Age of Onset other (lymphoma) Mother COPD Father other (bone cancer) Father Ischemic Heart Disease Son 33 Social History Tobacco Use Smoking status: Former Smoker Packs/day: 0.50 Years: 45.00 Pack years: 22.50 Types: Cigarettes Start date: 08/30/1966 Quit date: 01/29/2012 Years since quittin.6 Smokeless tobacco: Never Used Tobacco comment: Father smoked in childhood home. Spouse smoked briefly after marriage. Substance Use Topics Alcohol use: No Drug use: No Reviewed current medications, allergies, past medical history, surgical history, family history andsocial history today. REVIEW OF SYSTEMS All other reviewed and negative other than HPI. VITALS: BP 122/62 Pulse 74 Wt 97.1 kg (214 lb) SpO2 98% BMI 36.73 kg/m Last 4 Encounter Wt Readings: Date: Wt: 08/30/2021 0 kg () 08/16/2021 98 kg (216 lb) 01/11/2021 102.9 kg (226 lb 12.8 oz) 11/14/2020 101.2 kg (223 lb 3.2 oz) PHYSICAL EXAMINATION: General appearance: Well appearing, alert, in no acute distress, well-hydrated, well nourished. Skin: still large open wound on calf. Normal granulation tissue. No eschar. No signs of surroundinginfection. Given bleeding on removal of duoderm will hold on applying more. ASSESSMENT/PLAN: 1. Wound of left lower extremity, subsequent encounter - ICD9: V58.89, 894.0, ICD10: S81.802D Continue to cleanse regularly. bactroban and sterile dressings. -get into local wound care. Red flags for re-assessment reviewed with patient in detail. - CONSULT TO NON-[facility] FACILITY Jalyn Smith RTO in next scheduled appt and prn. documented in this encounterBlanchard Valley Health System04-08-2022 Instructions* Patient Instructions* Anthony Rodríguez PA-C - 09/13/2021 3:30 PM EDT Continue duoderm, recheck in 4-7 days as transportation is available. documented in this encounterBlanchard Valley Health System04-08-2022 History of Present illness Narrative* Anthony Rodríguez PA-C - 09/13/2021 3:25 PM EDT Here to replace duoderm. Wound is looking much better. Granulating nicely all the way across. Was edges with sterile water. Follow up in 4-7 days Tigre Rodríguez PA-C documented in this encounterBlanchard Valley Health System04-06-2022 History of Present illness Narrative* Rolf Ackerman MA - 09/11/2021 3:56 PM EDT POPULATION HEALTH NAVIGATION OUTREACH Action/FYI Spoke with patient and she wants to discuss with pcp on 09/13 whether or not she still needs to do CRS & BCS anymore. Patient states it's too hard for her to get back and forth for multiple appts. Patient had last DM eye at [facility] in [place] and will be due again 10/05/21. Patient will make her own appt. A1C- already ordered- reminded to complete Albumin and lipid-Order placed- please approve and add any additional labs- sent lab reminder Sent AD via my chart. Pended Orders ID Status Description Pended By When Reason [id number] Pended LIPID PANEL BASIC Rolf Ackerman MA 09/11/21 [id number] Pended ALBUMIN/CREAT RATIO RND UR Rolf Ackerman MA 09/11/21 1555 Pt identified by name and : YES, via phone Outreach Outcome/Action Spoke to patient or caregiver: Patient declined MyChart message sent Advance Directives sent Reason for Outreach Care Gap or Scheduling/Wellness visits Payer: Payor: [employer] MEDICARE / Plan: [employer] MEDICARE PPO / Product Type: PPO / Care Gap Reviewed:: Breast Cancer screening Colorectal Cancer Screening Diabetic Eye Exam HBA1C Nephropathy (Albumin/Creatinine) Urine Reminder: Reminder note to check Health Maintenance for items below Health Maintenance items due: DILATED RETINAL EXAM Never done HEPATITIS C SCREENING Never done BP CONTROLLED (<130/80) Never done SHINGRIX VACCINE(1 of 2) Never done MAMMOGRAM due on 01/05/2020 COLORECTAL CANCER SCREENING due on 06/29/2020 HBA1C due on 01/28/2021 ADVANCE DIRECTIVE DISCUSSION Never done LDL CHOLESTEROL due on 07/31/2021 URINE ALBUMIN:CREATININE RATIO due on 08/08/2021 DIABETIC FOOT EXAM due on 08/20/2021 Message Sent to Practice: Yes Navigation Signature: Rolf Ackerman MA September 11, 2021 3:56 PM documented in this encounterBlanchard Valley Health System04-04-2022 Miscellaneous Notes* Telephone Encounter - Aj Hermosillo LPN - 09/09/2021 3:10 PM EDT Pt is scheduled for ER follow up tomorrow (09/10) with Greg. Aj Hermosillo LPN * Telephone Encounter - Judy Borrego LPN - 09/09/2021 9:12 AM EDT Left a message for pt to call the office. FYI: No sutures were put in. This was left open. Judy Borrego LPN * Telephone Encounter - Kalpana Sharif LPN - 09/06/2021 1:35 PM EDT Left message to call and speak with nurse. (ER report is in scanned documents.) * Telephone Encounter - Jalyn Smith MD - 09/06/2021 1:14 PM EDT Does it look worse than it did before the antibiotic? When she says it is open, they did not sutureit? If worsens at all, needs seen * Telephone Encounter - Judy Borrego LPN - 09/06/2021 12:51 PM EDT Pt called today 09-06-21 to schedule an [facility] ER FU from 08-30-21. Pt has a laceration to her left lowerleg that occurred 08-29-21 in her home. She cut her leg on her walker. Pt states today the laceration is open and there is yellow drainage. She has been keeping it wrapped. No pain, just itching and burning. She reports still taking the ATB given to her from [facility] Cephalexin 500 mg capsules to take 1 every 6 hours. 40 capsules given and she has 20 left as of today 09-06-21. Pt states she was told this will heal on its own. ER FU Apt booked for 09-10-21. Judy Borrego LPN documented in this encounterBlanchard Valley Health System04-04-2022 Miscellaneous Notes* Telephone Encounter - Sharyn Quinn MA - 09/09/2021 1:20 PM EDT Patient requested a refill on the Gabapentin, however upon review of the chart there an active prescription that was sent 90 capsule 5 refills on 08/16/2021 to [facility]. My chart message was sent to the patient. Sharyn Quinn MA documented in this encounterBlanchard Valley Health System03-12-2022 History of Past illness Narrative* Problem Noted Date Resolved Date Obesity, Class III, BMI 40-49.9 (morbid obesity) 08/17/2021 10/01/2022 Skin ulcer 02/09/2019 08/16/2020 Obesity, Class II, BMI 35-39.9 12/02/2017 1 Pain, neck 03/31/2016 08/20/2016 Acute midline thoracic back pain 03/31/2016 08/20/2016 Backache, unspecified 03/14/2013 08/20/2016 COPD with chronic bronchitis 04/2021 HTN (hypertension) 08/20/2016 documented as of this encounter (statuses as of 10/01/2022) [facility] of Past illness Narrative* Problem Noted Date Resolved Date Obesity, Class III, BMI 40-49.9 (morbid obesity) 08/17/2021 10/01/2022 Skin ulcer 02/09/2019 08/16/2020 Obesity, Class II, BMI 35-39.9 12/02/2017 1 Pain, neck 03/31/2016 08/20/2016 Acute midline thoracic back pain 03/31/2016 08/20/2016 Backache, unspecified 03/14/2013 08/20/2016 COPD with chronic bronchitis 04/2021 HTN (hypertension) 08/20/2016 documented as of this encounter (statuses as of 10/15/2022) [facility] of Past illness Narrative* Problem Noted Date Resolved Date Obesity, Class III, BMI 40-49.9 (morbid obesity) 08/17/2021 10/01/2022 Skin ulcer 02/09/2019 08/16/2020 Obesity, Class II, BMI 35-39.9 12/02/2017 1 Pain, neck 03/31/2016 08/20/2016 Acute midline thoracic back pain 03/31/2016 08/20/2016 Backache, unspecified 03/14/2013 08/20/2016 COPD with chronic bronchitis 04/2021 HTN (hypertension) 08/20/2016 documented as of this encounter (statuses as of 10/15/2022) [address]12-2022 History of Past illness Narrative* Problem Noted Date Resolved Date Obesity, Class III, BMI 40-49.9 (morbid obesity) 08/17/2021 10/01/2022 Skin ulcer 02/09/2019 08/16/2020 Obesity, Class II, BMI 35-39.9 12/02/2017 1 Pain, neck 03/31/2016 08/20/2016 Acute midline thoracic back pain 03/31/2016 08/20/2016 Backache, unspecified 03/14/2013 08/20/2016 COPD with chronic bronchitis 04/2021 HTN (hypertension) 08/20/2016 documented as of this encounter (statuses as of 11/13/2022) [facility] of Past illness Narrative* Problem Noted Date Resolved Date Obesity, Class III, BMI 40-49.9 (morbid obesity) 08/17/2021 10/01/2022 Skin ulcer 02/09/2019 08/16/2020 Obesity, Class II, BMI 35-39.9 12/02/2017 1 Pain, neck 03/31/2016 08/20/2016 Acute midline thoracic back pain 03/31/2016 08/20/2016 Backache, unspecified 03/14/2013 08/20/2016 COPD with chronic bronchitis 04/2021 HTN (hypertension) 08/20/2016 documented as of this encounter (statuses as of 12/05/2022) [facility]22 History of Past illness Narrative* Problem Noted Date Resolved Date Obesity, Class III, BMI 40-49.9 (morbid obesity) 08/17/2021 10/01/2022 Skin ulcer 02/09/2019 08/16/2020 Obesity, Class II, BMI 35-39.9 12/02/2017 1 Pain, neck 03/31/2016 08/20/2016 Acute midline thoracic back pain 03/31/2016 08/20/2016 Backache, unspecified 03/14/2013 08/20/2016 COPD with chronic bronchitis 04/2021 HTN (hypertension) 08/20/2016 documented as of this encounter (statuses as of 12/06/2022) [facility] History of Past illness Narrative* Problem Noted Date Resolved Date Obesity, Class III, BMI 40-49.9 (morbid obesity) 08/17/2021 10/01/2022 Skin ulcer 02/09/2019 08/16/2020 Obesity, Class II, BMI 35-39.9 12/02/2017 1 Pain, neck 03/31/2016 08/20/2016 Acute midline thoracic back pain 03/31/2016 08/20/2016 Backache, unspecified 03/14/2013 08/20/2016 COPD with chronic bronchitis 04/2021 HTN (hypertension) 08/20/2016 documented as of this encounter (statuses as of 12/11/2022) [facility] History of Past illness Narrative* Problem Noted Date Resolved Date Obesity, Class III, BMI 40-49.9 (morbid obesity) 08/17/2021 10/01/2022 Skin ulcer 02/09/2019 08/16/2020 Obesity, Class II, BMI 35-39.9 12/02/2017 1 Pain, neck 03/31/2016 08/20/2016 Acute midline thoracic back pain 03/31/2016 08/20/2016 Backache, unspecified 03/14/2013 08/20/2016 COPD with chronic bronchitis 04/2021 HTN (hypertension) 08/20/2016 documented as of this encounter (statuses as of 12/12/2022) [facility] History of Past illness Narrative* Problem Noted Date Diagnosed Date Resolved Date Obesity, Class III, BMI 40-4 9.9 (morbid obesity) 08/17/2021 10/01/2022 Skin ulcer 02/09/2019 08/16/2020 Obesity, Class II, BMI 35-39.9 12/02/2017 04/02/2018 Pain, neck 03/31/2016 08/20/2016 Acute midline thoracic back pain 03/31/2016 08/20/2016 Backache, unspecified 03/14/20132016 COPD with chronic bronchitis 08/16/2020 HTN (hypertension) 7 documented as of this encounter (statuses as of 12/16/2022) [facility] History of Past illness Narrative* Problem Noted Date Diagnosed Date Resolved Date Obesity, Class III, BMI 40-4 9.9 (morbid obesity) 08/17/2021 10/01/2022 Skin ulcer 02/09/2019 08/16/2020 Obesity, Class II, BMI 35-39.9 12/02/2017 04/02/2018 Pain, neck 03/31/2016 08/20/2016 Acute midline thoracic back pain 03/31/2016 08/20/2016 Backache, unspecified 03/14/20132016 COPD with chronic bronchitis 08/16/2020 HTN (hypertension) 7 documented as of this encounter (statuses as of 01/08/2023) [facility] History of Past illness Narrative* Problem Noted Date Diagnosed Date Resolved Date Obesity, Class III, BMI 40-4 9.9 (morbid obesity) 08/17/2021 10/01/2022 Skin ulcer 02/09/2019 08/16/2020 Obesity, Class II, BMI 35-39.9 12/02/2017 04/02/2018 Pain, neck 03/31/2016 08/20/2016 Acute midline thoracic back pain 03/31/2016 08/20/2016 Backache, unspecified 03/14/20132016 COPD with chronic bronchitis 08/16/2020 HTN (hypertension) 7 documented as of this encounter (statuses as of 01/08/2023) [facility] History of Past illness Narrative* Problem Noted Date Diagnosed Date Resolved Date Obesity, Class III, BMI 40-4 9.9 (morbid obesity) 08/17/2021 10/01/2022 Skin ulcer 02/09/2019 08/16/2020 Obesity, Class II, BMI 35-39.9 12/02/2017 04/02/2018 Pain, neck 03/31/2016 08/20/2016 Acute midline thoracic back pain 03/31/2016 08/20/2016 Backache, unspecified 03/14/20132016 COPD with chronic bronchitis 08/16/2020 HTN (hypertension) 7 documented as of this encounter (statuses as of 01/08/2023) [facility] History of Past illness Narrative* Problem Noted Date Diagnosed Date Resolved Date Obesity, Class III, BMI 40-4 9.9 (morbid obesity) 08/17/2021 10/01/2022 Skin ulcer 02/09/2019 08/16/2020 Obesity, Class II, BMI 35-39.9 12/02/2017 04/02/2018 Pain, neck 03/31/2016 08/20/2016 Acute midline thoracic back pain 03/31/2016 08/20/2016 Backache, unspecified 03/14/20132016 COPD with chronic bronchitis 08/16/2020 HTN (hypertension) 7 documented as of this encounter (statuses as of 01/13/2023) [facility] History of Past illness Narrative* Problem Noted Date Diagnosed Date Resolved Date Obesity, Class III, BMI 40-4 9.9 (morbid obesity) 08/17/2021 10/01/2022 Skin ulcer 02/09/2019 08/16/2020 Obesity, Class II, BMI 35-39.9 12/02/2017 04/02/2018 Pain, neck 03/31/2016 08/20/2016 Acute midline thoracic back pain 03/31/2016 08/20/2016 Backache, unspecified 03/14/20132016 COPD with chronic bronchitis 08/16/2020 HTN (hypertension) 7 documented as of this encounter (statuses as of 01/13/2023) [facility] History of Past illness Narrative* Problem Noted Date Diagnosed Date Resolved Date Obesity, Class III, BMI 40-4 9.9 (morbid obesity) 08/17/2021 10/01/2022 Skin ulcer 02/09/2019 08/16/2020 Obesity, Class II, BMI 35-39.9 12/02/2017 04/02/2018 Pain, neck 03/31/2016 08/20/2016 Acute midline thoracic back pain 03/31/2016 08/20/2016 Backache, unspecified 03/14/20132016 COPD with chronic bronchitis 08/16/2020 HTN (hypertension) 7 documented as of this encounter (statuses as of 01/14/2023) [facility] History of Past illness Narrative* Problem Noted Date Diagnosed Date Resolved Date Obesity, Class III, BMI 40-4 9.9 (morbid obesity) 08/17/2021 10/01/2022 Skin ulcer 02/09/2019 08/16/2020 Obesity, Class II, BMI 35-39.9 12/02/2017 04/02/2018 Pain, neck 03/31/2016 08/20/2016 Acute midline thoracic back pain 03/31/2016 08/20/2016 Backache, unspecified 03/14/20132016 COPD with chronic bronchitis 08/16/2020 HTN (hypertension) 7 documented as of this encounter (statuses as of 01/16/2023) [facility] History of Past illness Narrative* Problem Noted Date Diagnosed Date Resolved Date Obesity, Class III, BMI 40-4 9.9 (morbid obesity) 08/17/2021 10/01/2022 Skin ulcer 02/09/2019 08/16/2020 Obesity, Class II, BMI 35-39.9 12/02/2017 04/02/2018 Pain, neck 03/31/2016 08/20/2016 Acute midline thoracic back pain 03/31/2016 08/20/2016 Backache, unspecified 03/14/20132016 COPD with chronic bronchitis 08/16/2020 HTN (hypertension) 7 documented as of this encounter (statuses as of 01/20/2023) [facility] History of Past illness Narrative* Problem Noted Date Diagnosed Date Resolved Date Obesity, Class III, BMI 40-4 9.9 (morbid obesity) 08/17/2021 10/01/2022 Skin ulcer 02/09/2019 08/16/2020 Obesity, Class II, BMI 35-39.9 12/02/2017 04/02/2018 Pain, neck 03/31/2016 08/20/2016 Acute midline thoracic back pain 03/31/2016 08/20/2016 Backache, unspecified 03/14/20132016 COPD with chronic bronchitis 08/16/2020 HTN (hypertension) 7 documented as of this encounter (statuses as of 01/22/2023) [facility] History of Past illness Narrative* Problem Noted Date Diagnosed Date Resolved Date Obesity, Class III, BMI 40-4 9.9 (morbid obesity) 08/17/2021 10/01/2022 Skin ulcer 02/09/2019 08/16/2020 Obesity, Class II, BMI 35-39.9 12/02/2017 04/02/2018 Pain, neck 03/31/2016 08/20/2016 Acute midline thoracic back pain 03/31/2016 08/20/2016 Backache, unspecified 03/14/20132016 COPD with chronic bronchitis 08/16/2020 HTN (hypertension) 7 documented as of this encounter (statuses as of 01/22/2023) [facility] History of Past illness Narrative* Problem Noted Date Diagnosed Date Resolved Date Obesity, Class III, BMI 40-4 9.9 (morbid obesity) 08/17/2021 10/01/2022 Skin ulcer 02/09/2019 08/16/2020 Obesity, Class II, BMI 35-39.9 12/02/2017 04/02/2018 Pain, neck 03/31/2016 08/20/2016 Acute midline thoracic back pain 03/31/2016 08/20/2016 Backache, unspecified 03/14/20132016 COPD with chronic bronchitis 08/16/2020 HTN (hypertension) 7 documented as of this encounter (statuses as of 02/05/2023) [facility] History of Past illness Narrative* Problem Noted Date Diagnosed Date Resolved Date Obesity, Class III, BMI 40-4 9.9 (morbid obesity) 08/17/2021 10/01/2022 Skin ulcer 02/09/2019 08/16/2020 Obesity, Class II, BMI 35-39.9 12/02/2017 04/02/2018 Pain, neck 03/31/2016 08/20/2016 Acute midline thoracic back pain 03/31/2016 08/20/2016 Backache, unspecified 03/14/20132016 COPD with chronic bronchitis 08/16/2020 HTN (hypertension) 7 documented as of this encounter (statuses as of 02/11/2023) [address]12-2022 History of Past illness Narrative* Problem Noted Date Diagnosed Date Resolved Date Obesity, Class III, BMI 40-4 9.9 (morbid obesity) 08/17/2021 10/01/2022 Skin ulcer 02/09/2019 08/16/2020 Obesity, Class II, BMI 35-39.9 12/02/2017 04/02/2018 Pain, neck 03/31/2016 08/20/2016 Acute midline thoracic back pain 03/31/2016 08/20/2016 Backache, unspecified 03/14/20132016 COPD with chronic bronchitis 08/16/2020 HTN (hypertension) 7 documented as of this encounter (statuses as of 03/14/2023) [facility] History of Past illness Narrative* Problem Noted Date Diagnosed Date Resolved Date Obesity, Class III, BMI 40-4 9.9 (morbid obesity) 08/17/2021 10/01/2022 Skin ulcer 02/09/2019 08/16/2020 Obesity, Class II, BMI 35-39.9 12/02/2017 04/02/2018 Pain, neck 03/31/2016 08/20/2016 Acute midline thoracic back pain 03/31/2016 08/20/2016 Backache, unspecified 03/14/20132016 COPD with chronic bronchitis 08/16/2020 HTN (hypertension) 7 documented as of this encounter (statuses as of 03/27/2023) [address]12-2022 History of Past illness Narrative* Problem Noted Date Diagnosed Date Resolved Date Obesity, Class III, BMI 40-4 9.9 (morbid obesity) 08/17/2021 10/01/2022 Skin ulcer 02/09/2019 08/16/2020 Obesity, Class II, BMI 35-39.9 12/02/2017 04/02/2018 Pain, neck 03/31/2016 08/20/2016 Acute midline thoracic back pain 03/31/2016 08/20/2016 Backache, unspecified 03/14/20132016 COPD with chronic bronchitis 08/16/2020 HTN (hypertension) 7 documented as of this encounter (statuses as of 03/27/2023) [address]12-2022 History of Past illness Narrative* Problem Noted Date Diagnosed Date Resolved Date Obesity, Class III, BMI 40-4 9.9 (morbid obesity) 08/17/2021 10/01/2022 Skin ulcer 02/09/2019 08/16/2020 Obesity, Class II, BMI 35-39.9 12/02/2017 04/02/2018 Pain, neck 03/31/2016 08/20/2016 Acute midline thoracic back pain 03/31/2016 08/20/2016 Backache, unspecified 03/14/20132016 COPD with chronic bronchitis 08/16/2020 HTN (hypertension) 7 documented as of this encounter (statuses as of 03/30/2023) [facility] History of Past illness Narrative* Problem Noted Date Diagnosed Date Resolved Date Obesity, Class III, BMI 40-4 9.9 (morbid obesity) 08/17/2021 10/01/2022 Skin ulcer 02/09/2019 08/16/2020 Obesity, Class II, BMI 35-39.9 12/02/2017 04/02/2018 Pain, neck 03/31/2016 08/20/2016 Acute midline thoracic back pain 03/31/2016 08/20/2016 Backache, unspecified 03/14/20132016 COPD with chronic bronchitis 08/16/2020 HTN (hypertension) 7 documented as of this encounter (statuses as of 04/12/2023) [facility] History of Past illness Narrative* Problem Noted Date Diagnosed Date Resolved Date Obesity, Class III, BMI 40-4 9.9 (morbid obesity) 08/17/2021 10/01/2022 Skin ulcer 02/09/2019 08/16/2020 Obesity, Class II, BMI 35-39.9 12/02/2017 04/02/2018 Pain, neck 03/31/2016 08/20/2016 Acute midline thoracic back pain 03/31/2016 08/20/2016 Backache, unspecified 03/14/20132016 COPD with chronic bronchitis 08/16/2020 HTN (hypertension) 7 documented as of this encounter (statuses as of 04/12/2023) [address]12-2022 History of Past illness Narrative* Problem Noted Date Diagnosed Date Resolved Date Obesity, Class III, BMI 40-4 9.9 (morbid obesity) 08/17/2021 10/01/2022 Skin ulcer 02/09/2019 08/16/2020 Obesity, Class II, BMI 35-39.9 12/02/2017 04/02/2018 Pain, neck 03/31/2016 08/20/2016 Acute midline thoracic back pain 03/31/2016 08/20/2016 Backache, unspecified 03/14/20132016 COPD with chronic bronchitis 08/16/2020 HTN (hypertension) 7 documented as of this encounter (statuses as of 04/29/2023) [facility] History of Past illness Narrative* Problem Noted Date Diagnosed Date Resolved Date Obesity, Class III, BMI 40-4 9.9 (morbid obesity) 08/17/2021 10/01/2022 Skin ulcer 02/09/2019 08/16/2020 Obesity, Class II, BMI 35-39.9 12/02/2017 04/02/2018 Pain, neck 03/31/2016 08/20/2016 Acute midline thoracic back pain 03/31/2016 08/20/2016 Backache, unspecified 03/14/20132016 COPD with chronic bronchitis 08/16/2020 HTN (hypertension) 7 documented as of this encounter (statuses as of 05/05/2023) [address]12-2022 History of Past illness Narrative* Problem Noted Date Diagnosed Date Resolved Date Obesity, Class III, BMI 40-4 9.9 (morbid obesity) 08/17/2021 10/01/2022 Skin ulcer 02/09/2019 08/16/2020 Obesity, Class II, BMI 35-39.9 12/02/2017 04/02/2018 Pain, neck 03/31/2016 08/20/2016 Acute midline thoracic back pain 03/31/2016 08/20/2016 Backache, unspecified 03/14/20132016 COPD with chronic bronchitis 08/16/2020 HTN (hypertension) 7 documented as of this encounter (statuses as of 05/19/2023) [facility] History of Past illness Narrative* Problem Noted Date Diagnosed Date Resolved Date Obesity, Class III, BMI 40-4 9.9 (morbid obesity) 08/17/2021 10/01/2022 Skin ulcer 02/09/2019 08/16/2020 Obesity, Class II, BMI 35-39.9 12/02/2017 04/02/2018 Pain, neck 03/31/2016 08/20/2016 Acute midline thoracic back pain 03/31/2016 08/20/2016 Backache, unspecified 03/14/20132016 COPD with chronic bronchitis 08/16/2020 HTN (hypertension) 7 documented as of this encounter (statuses as of 07/16/2023) [facility] History of Past illness Narrative* Problem Noted Date Diagnosed Date Resolved Date Obesity, Class III, BMI 40-4 9.9 (morbid obesity) 08/17/2021 10/01/2022 Skin ulcer 02/09/2019 08/16/2020 Obesity, Class II, BMI 35-39.9 12/02/2017 04/02/2018 Pain, neck 03/31/2016 08/20/2016 Acute midline thoracic back pain 03/31/2016 08/20/2016 Backache, unspecified 03/14/20132016 COPD with chronic bronchitis 08/16/2020 HTN (hypertension) 7 documented as of this encounter (statuses as of 07/20/2023) [facility] History of Past illness Narrative* Problem Noted Date Diagnosed Date Resolved Date Obesity, Class III, BMI 40-4 9.9 (morbid obesity) 08/17/2021 10/01/2022 Skin ulcer 02/09/2019 08/16/2020 Obesity, Class II, BMI 35-39.9 12/02/2017 04/02/2018 Pain, neck 03/31/2016 08/20/2016 Acute midline thoracic back pain 03/31/2016 08/20/2016 Backache, unspecified 03/14/20132016 COPD with chronic bronchitis 08/16/2020 HTN (hypertension) 7 documented as of this encounter (statuses as of 07/24/2023) [facility] History of Past illness Narrative* Problem Noted Date Diagnosed Date Resolved Date Obesity, Class III, BMI 40-4 9.9 (morbid obesity) 08/17/2021 10/01/2022 Skin ulcer 02/09/2019 08/16/2020 Obesity, Class II, BMI 35-39.9 12/02/2017 04/02/2018 Pain, neck 03/31/2016 08/20/2016 Acute midline thoracic back pain 03/31/2016 08/20/2016 Backache, unspecified 03/14/20132016 COPD with chronic bronchitis 08/16/2020 HTN (hypertension) 7 documented as of this encounter (statuses as of 08/05/2023) [facility] History of Past illness Narrative* Problem Noted Date Diagnosed Date Resolved Date Obesity, Class III, BMI 40-4 9.9 (morbid obesity) 08/17/2021 10/01/2022 Skin ulcer 02/09/2019 08/16/2020 Obesity, Class II, BMI 35-39.9 12/02/2017 04/02/2018 Pain, neck 03/31/2016 08/20/2016 Acute midline thoracic back pain 03/31/2016 08/20/2016 Backache, unspecified 03/14/20132016 COPD with chronic bronchitis 08/16/2020 HTN (hypertension) 7 documented as of this encounter (statuses as of 08/17/2023) [facility] History of Past illness Narrative* Problem Noted Date Diagnosed Date Resolved Date Obesity, Class III, BMI 40-4 9.9 (morbid obesity) 08/17/2021 10/01/2022 Skin ulcer 02/09/2019 08/16/2020 Obesity, Class II, BMI 35-39.9 12/02/2017 04/02/2018 Pain, neck 03/31/2016 08/20/2016 Acute midline thoracic back pain 03/31/2016 08/20/2016 Backache, unspecified 03/14/20132016 COPD with chronic bronchitis 08/16/2020 HTN (hypertension) 7 documented as of this encounter (statuses as of 08/24/2023) [facility] History of Past illness Narrative* Problem Noted Date Diagnosed Date Resolved Date Obesity, Class III, BMI 40-4 9.9 (morbid obesity) 08/17/2021 10/01/2022 Skin ulcer 02/09/2019 08/16/2020 Obesity, Class II, BMI 35-39.9 12/02/2017 04/02/2018 Pain, neck 03/31/2016 08/20/2016 Acute midline thoracic back pain 03/31/2016 08/20/2016 Backache, unspecified 03/14/20132016 COPD with chronic bronchitis 08/16/2020 HTN (hypertension) 7 documented as of this encounter (statuses as of 08/25/2023) [facility] History of Past illness Narrative* Problem Noted Date Diagnosed Date Resolved Date Obesity, Class III, BMI 40-4 9.9 (morbid obesity) 08/17/2021 10/01/2022 Skin ulcer 02/09/2019 08/16/2020 Obesity, Class II, BMI 35-39.9 12/02/2017 04/02/2018 Pain, neck 03/31/2016 08/20/2016 Acute midline thoracic back pain 03/31/2016 08/20/2016 Backache, unspecified 03/14/20132016 COPD with chronic bronchitis 08/16/2020 HTN (hypertension) 7 documented as of this encounter (statuses as of 08/26/2023) [facility] History of Past illness Narrative* Problem Noted Date Diagnosed Date Resolved Date Obesity, Class III, BMI 40-4 9.9 (morbid obesity) 08/17/2021 10/01/2022 Skin ulcer 02/09/2019 08/16/2020 Obesity, Class II, BMI 35-39.9 12/02/2017 04/02/2018 Pain, neck 03/31/2016 08/20/2016 Acute midline thoracic back pain 03/31/2016 08/20/2016 Backache, unspecified 03/14/20132016 COPD with chronic bronchitis 08/16/2020 HTN (hypertension) 7 documented as of this encounter (statuses as of 08/28/2023) [facility] History of Past illness Narrative* Problem Noted Date Diagnosed Date Resolved Date Obesity, Class III, BMI 40-4 9.9 (morbid obesity) 08/17/2021 10/01/2022 Skin ulcer 02/09/2019 08/16/2020 Obesity, Class II, BMI 35-39.9 12/02/2017 04/02/2018 Pain, neck 03/31/2016 08/20/2016 Acute midline thoracic back pain 03/31/2016 08/20/2016 Backache, unspecified 03/14/20132016 COPD with chronic bronchitis 08/16/2020 HTN (hypertension) 7 documented as of this encounter (statuses as of 2023) [facility] History of Past illness Narrative* Problem Noted Date Diagnosed Date Resolved Date Obesity, Class III, BMI 40-4 9.9 (morbid obesity) 08/17/2021 10/01/2022 Skin ulcer 02/09/2019 08/16/2020 Obesity, Class II, BMI 35-39.9 12/02/2017 04/02/2018 Pain, neck 03/31/2016 08/20/2016 Acute midline thoracic back pain 03/31/2016 08/20/2016 Backache, unspecified 03/14/20132016 COPD with chronic bronchitis 08/16/2020 HTN (hypertension) 7 documented as of this encounter (statuses as of 2023) [facility] History of Past illness Narrative* Problem Noted Date Diagnosed Date Resolved Date Obesity, Class III, BMI 40-4 9.9 (morbid obesity) 08/17/2021 10/01/2022 Skin ulcer 02/09/2019 08/16/2020 Obesity, Class II, BMI 35-39.9 12/02/2017 04/02/2018 Pain, neck 03/31/2016 08/20/2016 Acute midline thoracic back pain 03/31/2016 08/20/2016 Backache, unspecified 03/14/20132016 COPD with chronic bronchitis 08/16/2020 HTN (hypertension) 7 documented as of this encounter (statuses as of 09/08/2023) [facility] History of Past illness Narrative* Problem Noted Date Diagnosed Date Resolved Date Obesity, Class III, BMI 40-4 9.9 (morbid obesity) 08/17/2021 10/01/2022 Skin ulcer 02/09/2019 08/16/2020 Obesity, Class II, BMI 35-39.9 12/02/2017 04/02/2018 Pain, neck 03/31/2016 08/20/2016 Acute midline thoracic back pain 03/31/2016 08/20/2016 Backache, unspecified 03/14/20132016 COPD with chronic bronchitis 08/16/2020 HTN (hypertension) 7 documented as of this encounter (statuses as of 09/09/2023) [facility] History of Past illness Narrative* Problem Noted Date Diagnosed Date Resolved Date Obesity, Class III, BMI 40-4 9.9 (morbid obesity) 08/17/2021 10/01/2022 Skin ulcer 02/09/2019 08/16/2020 Obesity, Class II, BMI 35-39.9 12/02/2017 04/02/2018 Pain, neck 03/31/2016 08/20/2016 Acute midline thoracic back pain 03/31/2016 08/20/2016 Backache, unspecified 03/14/20132016 COPD with chronic bronchitis 08/16/2020 HTN (hypertension) 7 documented as of this encounter (statuses as of 09/11/2023) [facility] History of Past illness Narrative* Problem Noted Date Diagnosed Date Resolved Date Obesity, Class III, BMI 40-4 9.9 (morbid obesity) 08/17/2021 10/01/2022 Skin ulcer 02/09/2019 08/16/2020 Obesity, Class II, BMI 35-39.9 12/02/2017 04/02/2018 Pain, neck 03/31/2016 08/20/2016 Acute midline thoracic back pain 03/31/2016 08/20/2016 Backache, unspecified 03/14/20132016 COPD with chronic bronchitis 08/16/2020 HTN (hypertension) 7 documented as of this encounter (statuses as of 09/11/2023) [facility] History of Past illness Narrative* Problem Noted Date Diagnosed Date Resolved Date Obesity, Class III, BMI 40-4 9.9 (morbid obesity) 08/17/2021 10/01/2022 Skin ulcer 02/09/2019 08/16/2020 Obesity, Class II, BMI 35-39.9 12/02/2017 04/02/2018 Pain, neck 03/31/2016 08/20/2016 Acute midline thoracic back pain 03/31/2016 08/20/2016 Backache, unspecified 03/14/20132016 COPD with chronic bronchitis 08/16/2020 HTN (hypertension) 7 documented as of this encounter (statuses as of 09/13/2023) [facility] History of Past illness Narrative* Problem Noted Date Diagnosed Date Resolved Date Obesity, Class III, BMI 40-4 9.9 (morbid obesity) 08/17/2021 10/01/2022 Skin ulcer 02/09/2019 08/16/2020 Obesity, Class II, BMI 35-39.9 12/02/2017 04/02/2018 Pain, neck 03/31/2016 08/20/2016 Acute midline thoracic back pain 03/31/2016 08/20/2016 Backache, unspecified 03/14/20132016 COPD with chronic bronchitis 08/16/2020 HTN (hypertension) 7 documented as of this encounter (statuses as of 09/14/2023) [facility] History of Past illness Narrative* Problem Noted Date Diagnosed Date Resolved Date Obesity, Class III, BMI 40-4 9.9 (morbid obesity) 08/17/2021 10/01/2022 Skin ulcer 02/09/2019 08/16/2020 Obesity, Class II, BMI 35-39.9 12/02/2017 04/02/2018 Pain, neck 03/31/2016 08/20/2016 Acute midline thoracic back pain 03/31/2016 08/20/2016 Backache, unspecified 03/14/20132016 COPD with chronic bronchitis 08/16/2020 HTN (hypertension) 7 documented as of this encounter (statuses as of 09/16/2023) [facility] History of Past illness Narrative* Problem Noted Date Diagnosed Date Resolved Date Obesity, Class III, BMI 40-4 9.9 (morbid obesity) 08/17/2021 10/01/2022 Skin ulcer 02/09/2019 08/16/2020 Dissection of descending aorta 12/30/2018 09/21/2023 Obesity, Class II, BMI 35-39.9 12/02/2017 04/02/2018 Pain, neck 03/31/2016 08/20/2016 Acute midline thoracic back pain 03/31/2016 08/20/2016 Backache, unspecified 03/14/20132016 COPD with chronic bronchitis 08/16/2020 HTN (hypertension) 7 documented as of this encounter (statuses as of 09/22/2023) [facility] History of Past illness Narrative* Problem Noted Date Diagnosed Date Resolved Date Obesity, Class III, BMI 40-4 9.9 (morbid obesity) 08/17/2021 10/01/2022 Skin ulcer 02/09/2019 08/16/2020 Dissection of descending aorta 12/30/2018 09/21/2023 Obesity, Class II, BMI 35-39.9 12/02/2017 04/02/2018 Pain, neck 03/31/2016 08/20/2016 Acute midline thoracic back pain 03/31/2016 08/20/2016 Backache, unspecified 03/14/20132016 COPD with chronic bronchitis 08/16/2020 HTN (hypertension) 7 documented as of this encounter (statuses as of 09/22/2023) [facility] History of Past illness Narrative* Problem Noted Date Diagnosed Date Resolved Date Obesity, Class III, BMI 40-4 9.9 (morbid obesity) 08/17/2021 10/01/2022 Skin ulcer 02/09/2019 08/16/2020 Dissection of descending aorta 12/30/2018 09/21/2023 Obesity, Class II, BMI 35-39.9 12/02/2017 04/02/2018 Pain, neck 03/31/2016 08/20/2016 Acute midline thoracic back pain 03/31/2016 08/20/2016 Backache, unspecified 03/14/20132016 COPD with chronic bronchitis 08/16/2020 HTN (hypertension) 7 documented as of this encounter (statuses as of 09/23/2023) [facility] History of Past illness Narrative* Problem Noted Date Diagnosed Date Resolved Date Obesity, Class III, BMI 40-4 9.9 (morbid obesity) 08/17/2021 10/01/2022 Skin ulcer 02/09/2019 08/16/2020 Dissection of descending aorta 12/30/2018 09/21/2023 Obesity, Class II, BMI 35-39.9 12/02/2017 04/02/2018 Pain, neck 03/31/2016 08/20/2016 Acute midline thoracic back pain 03/31/2016 08/20/2016 Backache, unspecified 03/14/20132016 COPD with chronic bronchitis 08/16/2020 HTN (hypertension) 7 documented as of this encounter (statuses as of 09/24/2023) [facility] History of Past illness Narrative* Problem Noted Date Diagnosed Date Resolved Date Obesity, Class III, BMI 40-4 9.9 (morbid obesity) 08/17/2021 10/01/2022 Skin ulcer 02/09/2019 08/16/2020 Dissection of descending aorta 12/30/2018 09/21/2023 Obesity, Class II, BMI 35-39.9 12/02/2017 04/02/2018 Pain, neck 03/31/2016 08/20/2016 Acute midline thoracic back pain 03/31/2016 08/20/2016 Backache, unspecified 03/14/20132016 COPD with chronic bronchitis 08/16/2020 HTN (hypertension) 7 documented as of this encounter (statuses as of 09/25/2023) [facility] Miscellaneous Notes* Telephone Encounter - Francoise Grady RN - 08/15/2021 12:12 PM EST Rizwana calling from [facility] to report plan of care for patient and OT will visit patient 1 times a week for first week and 2 times a week for 3 weeks. OT will work with patient on safe oxygen line management and ROM of left arm related to arthritis. Rizwana said she doesn't need a call back if provider agrees. Francoise Grady RN documented in [facility] encounter[facility] Miscellaneous Notes* Telephone Encounter - Tracy Peter RN - 07/24/2021 3:59 PM EST Patient's daughter Karson calling from patient's home with patient talking in background as well. Karson states she would like to discuss with provider, patient's condition as well as concern for patient taking care of herself alone. Karson states patient is on a lot of medications which she is having difficulty managing at times, decreased mobility due to weight, more fatigued with exertion, andhaving more trouble managing her activities of daily living. Patient fell back onto her walker today and daughter was unable to pick her up and the squad was called to assist patient. They declined ER visit today. Karson would like to discuss care options for her mother and possible home health services, or other recommendations. 40 min. Virtual Visit made with Dr. Smith for 08/01 which worked best for daughter to attend and to ensure patient follows through with appt. Last OV was 08/20/20. Patient cancelled and no-showed appts last February and March. Please call daughter if needing to advise further. PH: [phone]. Thank you. [facility] in [facility] encounter[facility] History of Past illness Narrative* Problem Noted Date Resolved Date Skin ulcer 02/09/2019 08/16/2020 Obesity, Class II, BMI 35-39.9 12/02/2017 1 Pain, neck 03/31/2016 08/20/2016 Acute midline thoracic back pain 03/31/2016 08/20/2016 Backache, unspecified 03/14/2013 08/20/2016 COPD with chronic bronchitis 04/2021 HTN (hypertension) 08/20/2016 documented as of this encounter (statuses as of 09/09/2021) [facility] Past illness Narrative* Problem Noted Date Resolved Date Skin ulcer 02/09/2019 08/16/2020 Obesity, Class II, BMI 35-39.9 12/02/2017 1 Pain, neck 03/31/2016 08/20/2016 Acute midline thoracic back pain 03/31/2016 08/20/2016 Backache, unspecified 03/14/2013 08/20/2016 COPD with chronic bronchitis 04/2021 HTN (hypertension) 08/20/2016 documented as of this encounter (statuses as of 09/11/2021) [facility] Narrative* Problem Noted Date Resolved Date Skin ulcer 02/09/2019 08/16/2020 Obesity, Class II, BMI 35-39.9 12/02/2017 1 Pain, neck 03/31/2016 08/20/2016 Acute midline thoracic back pain 03/31/2016 08/20/2016 Backache, unspecified 03/14/2013 08/20/2016 COPD with chronic bronchitis 04/2021 HTN (hypertension) 08/20/2016 documented as of this encounter (statuses as of 09/13/2021) [facility] Narrative* Problem Noted Date Resolved Date Skin ulcer 02/09/2019 08/16/2020 Obesity, Class II, BMI 35-39.9 12/02/2017 1 Pain, neck 03/31/2016 08/20/2016 Acute midline thoracic back pain 03/31/2016 08/20/2016 Backache, unspecified 03/14/2013 08/20/2016 COPD with chronic bronchitis 04/2021 HTN (hypertension) 08/20/2016 documented as of this encounter (statuses as of 09/13/2021) [facility] Narrative* Problem Noted Date Resolved Date Skin ulcer 02/09/2019 08/16/2020 Obesity, Class II, BMI 35-39.9 12/02/2017 1 Pain, neck 03/31/2016 08/20/2016 Acute midline thoracic back pain 03/31/2016 08/20/2016 Backache, unspecified 03/14/2013 08/20/2016 COPD with chronic bronchitis 04/2021 HTN (hypertension) 08/20/2016 documented as of this encounter (statuses as of 09/18/2021) [facility] Narrative* Problem Noted Date Resolved Date Skin ulcer 02/09/2019 08/16/2020 Obesity, Class II, BMI 35-39.9 12/02/2017 1 Pain, neck 03/31/2016 08/20/2016 Acute midline thoracic back pain 03/31/2016 08/20/2016 Backache, unspecified 03/14/2013 08/20/2016 COPD with chronic bronchitis 04/2021 HTN (hypertension) 08/20/2016 documented as of this encounter (statuses as of 09/19/2021) [facility] Narrative* Problem Noted Date Resolved Date Skin ulcer 02/09/2019 08/16/2020 Obesity, Class II, BMI 35-39.9 12/02/2017 1 Pain, neck 03/31/2016 08/20/2016 Acute midline thoracic back pain 03/31/2016 08/20/2016 Backache, unspecified 03/14/2013 08/20/2016 COPD with chronic bronchitis 04/2021 HTN (hypertension) 08/20/2016 documented as of this encounter (statuses as of 09/23/2021) [facility] Narrative* Problem Noted Date Resolved Date Skin ulcer 02/09/2019 08/16/2020 Obesity, Class II, BMI 35-39.9 12/02/2017 1 Pain, neck 03/31/2016 08/20/2016 Acute midline thoracic back pain 03/31/2016 08/20/2016 Backache, unspecified 03/14/2013 08/20/2016 COPD with chronic bronchitis 04/2021 HTN (hypertension) 08/20/2016 documented as of this encounter (statuses as of 10/24/2021) [facility] Past [facility] Narrative* Problem Noted Date Resolved Date Skin ulcer 02/09/2019 08/16/2020 Obesity, Class II, BMI 35-39.9 12/02/2017 1 Pain, neck 03/31/2016 08/20/2016 Acute midline thoracic back pain 03/31/2016 08/20/2016 Backache, unspecified 03/14/2013 08/20/2016 COPD with chronic bronchitis 04/2021 HTN (hypertension) 08/20/2016 documented as of this encounter (statuses as of 10/24/2021) [facility] Past [facility] Narrative* Problem Noted Date Resolved Date Skin ulcer 02/09/2019 08/16/2020 Obesity, Class II, BMI 35-39.9 12/02/2017 1 Pain, neck 03/31/2016 08/20/2016 Acute midline thoracic back pain 03/31/2016 08/20/2016 Backache, unspecified 03/14/2013 08/20/2016 COPD with chronic bronchitis 04/2021 HTN (hypertension) 08/20/2016 documented as of this encounter (statuses as of 10/28/2021) [facility] Narrative* Problem Noted Date Resolved Date Skin ulcer 02/09/2019 08/16/2020 Obesity, Class II, BMI 35-39.9 12/02/2017 1 Pain, neck 03/31/2016 08/20/2016 Acute midline thoracic back pain 03/31/2016 08/20/2016 Backache, unspecified 03/14/2013 08/20/2016 COPD with chronic bronchitis 04/2021 HTN (hypertension) 08/20/2016 documented as of this encounter (statuses as of 10/28/2021) [facility] Narrative* Problem Noted Date Resolved Date Skin ulcer 02/09/2019 08/16/2020 Obesity, Class II, BMI 35-39.9 12/02/2017 1 Pain, neck 03/31/2016 08/20/2016 Acute midline thoracic back pain 03/31/2016 08/20/2016 Backache, unspecified 03/14/2013 08/20/2016 COPD with chronic bronchitis 04/2021 HTN (hypertension) 08/20/2016 documented as of this encounter (statuses as of 12/02/2021) [facility]* Problem Noted Date Resolved Date Skin ulcer 02/09/2019 08/16/2020 Obesity, Class II, BMI 35-39.9 12/02/2017 1 Pain, neck 03/31/2016 08/20/2016 Acute midline thoracic back pain 03/31/2016 08/20/2016 Backache, unspecified 03/14/2013 08/20/2016 COPD with chronic bronchitis 04/2021 HTN (hypertension) 08/20/2016 documented as of this encounter (statuses as of 12/18/2021) [facility] Narrative* Problem Noted Date Resolved Date Skin ulcer 02/09/2019 08/16/2020 Obesity, Class II, BMI 35-39.9 12/02/2017 1 Pain, neck 03/31/2016 08/20/2016 Acute midline thoracic back pain 03/31/2016 08/20/2016 Backache, unspecified 03/14/2013 08/20/2016 COPD with chronic bronchitis 04/2021 HTN (hypertension) 08/20/2016 documented as of this encounter (statuses as of 12/20/2021) [facility] N[facility]ative* Problem Noted Date Resolved Date Skin ulcer 02/09/2019 08/16/2020 Obesity, Class II, BMI 35-39.9 12/02/2017 1 Pain, neck 03/31/2016 08/20/2016 Acute midline thoracic back pain 03/31/2016 08/20/2016 Backache, unspecified 03/14/2013 08/20/2016 COPD with chronic bronchitis 04/2021 HTN (hypertension) 08/20/2016 documented as of this encounter (statuses as of 12/23/2021) [facility] Past [facility] Narrative* Problem Noted Date Resolved Date Skin ulcer 02/09/2019 08/16/2020 Obesity, Class II, BMI 35-39.9 12/02/2017 1 Pain, neck 03/31/2016 08/20/2016 Acute midline thoracic back pain 03/31/2016 08/20/2016 Backache, unspecified 03/14/2013 08/20/2016 COPD with chronic bronchitis 04/2021 HTN (hypertension) 08/20/2016 documented as of this encounter (statuses as of 01/23/2022) [facility] Past [facility] Narrative* Problem Noted Date Resolved Date Skin ulcer 02/09/2019 08/16/2020 Obesity, Class II, BMI 35-39.9 12/02/2017 1 Pain, neck 03/31/2016 08/20/2016 Acute midline thoracic back pain 03/31/2016 08/20/2016 Backache, unspecified 03/14/2013 08/20/2016 COPD with chronic bronchitis 04/2021 HTN (hypertension) 08/20/2016 documented as of this encounter (statuses as of 01/31/2022) [facility] Past [facility] Narrative* Problem Noted Date Resolved Date Skin ulcer 02/09/2019 08/16/2020 Obesity, Class II, BMI 35-39.9 12/02/2017 1 Pain, neck 03/31/2016 08/20/2016 Acute midline thoracic back pain 03/31/2016 08/20/2016 Backache, unspecified 03/14/2013 08/20/2016 COPD with chronic bronchitis 04/2021 HTN (hypertension) 08/20/2016 documented as of this encounter (statuses as of 02/09/2022) [facility] Narrative* Problem Noted Date Resolved Date Skin ulcer 02/09/2019 08/16/2020 Obesity, Class II, BMI 35-39.9 12/02/2017 1 Pain, neck 03/31/2016 08/20/2016 Acute midline thoracic back pain 03/31/2016 08/20/2016 Backache, unspecified 03/14/2013 08/20/2016 COPD with chronic bronchitis 04/2021 HTN (hypertension) 08/20/2016 documented as of this encounter (statuses as of 02/13/2022) [facility] Narrative* Problem Noted Date Resolved Date Skin ulcer 02/09/2019 08/16/2020 Obesity, Class II, BMI 35-39.9 12/02/2017 1 Pain, neck 03/31/2016 08/20/2016 Acute midline thoracic back pain 03/31/2016 08/20/2016 Backache, unspecified 03/14/2013 08/20/2016 COPD with chronic bronchitis 04/2021 HTN (hypertension) 08/20/2016 documented as of this encounter (statuses as of 02/14/2022) [facility] Narrative* Problem Noted Date Resolved Date Skin ulcer 02/09/2019 08/16/2020 Obesity, Class II, BMI 35-39.9 12/02/2017 1 Pain, neck 03/31/2016 08/20/2016 Acute midline thoracic back pain 03/31/2016 08/20/2016 Backache, unspecified 03/14/2013 08/20/2016 COPD with chronic bronchitis 04/2021 HTN (hypertension) 08/20/2016 documented as of this encounter (statuses as of 02/14/2022) [facility] Narrative* Problem Noted Date Resolved Date Skin ulcer 02/09/2019 08/16/2020 Obesity, Class II, BMI 35-39.9 12/02/2017 1 Pain, neck 03/31/2016 08/20/2016 Acute midline thoracic back pain 03/31/2016 08/20/2016 Backache, unspecified 03/14/2013 08/20/2016 COPD with chronic bronchitis 04/2021 HTN (hypertension) 08/20/2016 documented as of this encounter (statuses as of 02/17/2022) [facility] Narrative* Problem Noted Date Resolved Date Skin ulcer 02/09/2019 08/16/2020 Obesity, Class II, BMI 35-39.9 12/02/2017 1 Pain, neck 03/31/2016 08/20/2016 Acute midline thoracic back pain 03/31/2016 08/20/2016 Backache, unspecified 03/14/2013 08/20/2016 COPD with chronic bronchitis 04/2021 HTN (hypertension) 08/20/2016 documented as of this encounter (statuses as of 02/19/2022) [facility] Narrative* Problem Noted Date Resolved Date Skin ulcer 02/09/2019 08/16/2020 Obesity, Class II, BMI 35-39.9 12/02/2017 1 Pain, neck 03/31/2016 08/20/2016 Acute midline thoracic back pain 03/31/2016 08/20/2016 Backache, unspecified 03/14/2013 08/20/2016 COPD with chronic bronchitis 04/2021 HTN (hypertension) 08/20/2016 documented as of this encounter (statuses as of 02/26/2022) [facility]* Problem Noted Date Resolved Date Skin ulcer 02/09/2019 08/16/2020 Obesity, Class II, BMI 35-39.9 12/02/2017 1 Pain, neck 03/31/2016 08/20/2016 Acute midline thoracic back pain 03/31/2016 08/20/2016 Backache, unspecified 03/14/2013 08/20/2016 COPD with chronic bronchitis 04/2021 HTN (hypertension) 08/20/2016 documented as of this encounter (statuses as of 03/06/2022) [facility] Past [facility] Narrative* Problem Noted Date Resolved Date Skin ulcer 02/09/2019 08/16/2020 Obesity, Class II, BMI 35-39.9 12/02/2017 1 Pain, neck 03/31/2016 08/20/2016 Acute midline thoracic back pain 03/31/2016 08/20/2016 Backache, unspecified 03/14/2013 08/20/2016 COPD with chronic bronchitis 04/2021 HTN (hypertension) 08/20/2016 documented as of this encounter (statuses as of 03/10/2022) [facility] Narrative* Problem Noted Date Resolved Date Skin ulcer 02/09/2019 08/16/2020 Obesity, Class II, BMI 35-39.9 12/02/2017 1 Pain, neck 03/31/2016 08/20/2016 Acute midline thoracic back pain 03/31/2016 08/20/2016 Backache, unspecified 03/14/2013 08/20/2016 COPD with chronic bronchitis 04/2021 HTN (hypertension) 08/20/2016 documented as of this encounter (statuses as of 03/11/2022) [facility]arrative* Problem Noted Date Resolved Date Skin ulcer 02/09/2019 08/16/2020 Obesity, Class II, BMI 35-39.9 12/02/2017 1 Pain, neck 03/31/2016 08/20/2016 Acute midline thoracic back pain 03/31/2016 08/20/2016 Backache, unspecified 03/14/2013 08/20/2016 COPD with chronic bronchitis 04/2021 HTN (hypertension) 08/20/2016 documented as of this encounter (statuses as of 03/17/2022) [facility]* Problem Noted Date Resolved Date Skin ulcer 02/09/2019 08/16/2020 Obesity, Class II, BMI 35-39.9 12/02/2017 1 Pain, neck 03/31/2016 08/20/2016 Acute midline thoracic back pain 03/31/2016 08/20/2016 Backache, unspecified 03/14/2013 08/20/2016 COPD with chronic bronchitis 04/2021 HTN (hypertension) 08/20/2016 documented as of this encounter (statuses as of 03/19/2022) [facility]ative* Problem Noted Date Resolved Date Skin ulcer 02/09/2019 08/16/2020 Obesity, Class II, BMI 35-39.9 12/02/2017 1 Pain, neck 03/31/2016 08/20/2016 Acute midline thoracic back pain 03/31/2016 08/20/2016 Backache, unspecified 03/14/2013 08/20/2016 COPD with chronic bronchitis 04/2021 HTN (hypertension) 08/20/2016 documented as of this encounter (statuses as of 03/20/2022) [facility]* Problem Noted Date Resolved Date Skin ulcer 02/09/2019 08/16/2020 Obesity, Class II, BMI 35-39.9 12/02/2017 1 Pain, neck 03/31/2016 08/20/2016 Acute midline thoracic back pain 03/31/2016 08/20/2016 Backache, unspecified 03/14/2013 08/20/2016 COPD with chronic bronchitis 04/2021 HTN (hypertension) 08/20/2016 documented as of this encounter (statuses as of 03/20/2022) [facility]* Problem Noted Date Resolved Date Skin ulcer 02/09/2019 08/16/2020 Obesity, Class II, BMI 35-39.9 12/02/2017 1 Pain, neck 03/31/2016 08/20/2016 Acute midline thoracic back pain 03/31/2016 08/20/2016 Backache, unspecified 03/14/2013 08/20/2016 COPD with chronic bronchitis 04/2021 HTN (hypertension) 08/20/2016 documented as of this encounter (statuses as of 03/25/2022) [facility]* Problem Noted Date Resolved Date Skin ulcer 02/09/2019 08/16/2020 Obesity, Class II, BMI 35-39.9 12/02/2017 1 Pain, neck 03/31/2016 08/20/2016 Acute midline thoracic back pain 03/31/2016 08/20/2016 Backache, unspecified 03/14/2013 08/20/2016 COPD with chronic bronchitis 04/2021 HTN (hypertension) 08/20/2016 documented as of this encounter (statuses as of 03/31/2022) [facility]* Problem Noted Date Resolved Date Skin ulcer 02/09/2019 08/16/2020 Obesity, Class II, BMI 35-39.9 12/02/2017 1 Pain, neck 03/31/2016 08/20/2016 Acute midline thoracic back pain 03/31/2016 08/20/2016 Backache, unspecified 03/14/2013 08/20/2016 COPD with chronic bronchitis 04/2021 HTN (hypertension) 08/20/2016 documented as of this encounter (statuses as of 04/08/2022) [facility]* Problem Noted Date Resolved Date Skin ulcer 02/09/2019 08/16/2020 Obesity, Class II, BMI 35-39.9 12/02/2017 1 Pain, neck 03/31/2016 08/20/2016 Acute midline thoracic back pain 03/31/2016 08/20/2016 Backache, unspecified 03/14/2013 08/20/2016 COPD with chronic bronchitis 04/2021 HTN (hypertension) 08/20/2016 documented as of this encounter (statuses as of 04/18/2022) [facility]* Problem Noted Date Resolved Date Skin ulcer 02/09/2019 08/16/2020 Obesity, Class II, BMI 35-39.9 12/02/2017 1 Pain, neck 03/31/2016 08/20/2016 Acute midline thoracic back pain 03/31/2016 08/20/2016 Backache, unspecified 03/14/2013 08/20/2016 COPD with chronic bronchitis 04/2021 HTN (hypertension) 08/20/2016 documented as of this encounter (statuses as of 05/08/2022) [facility]* Problem Noted Date Resolved Date Skin ulcer 02/09/2019 08/16/2020 Obesity, Class II, BMI 35-39.9 12/02/2017 1 Pain, neck 03/31/2016 08/20/2016 Acute midline thoracic back pain 03/31/2016 08/20/2016 Backache, unspecified 03/14/2013 08/20/2016 COPD with chronic bronchitis 04/2021 HTN (hypertension) 08/20/2016 documented as of this encounter (statuses as of 05/12/2022) [facility]* Problem Noted Date Resolved Date Skin ulcer 02/09/2019 08/16/2020 Obesity, Class II, BMI 35-39.9 12/02/2017 1 Pain, neck 03/31/2016 08/20/2016 Acute midline thoracic back pain 03/31/2016 08/20/2016 Backache, unspecified 03/14/2013 08/20/2016 COPD with chronic bronchitis 04/2021 HTN (hypertension) 08/20/2016 documented as of this encounter (statuses as of 06/11/2022) [facility]* Problem Noted Date Resolved Date Skin ulcer 02/09/2019 08/16/2020 Obesity, Class II, BMI 35-39.9 12/02/2017 1 Pain, neck 03/31/2016 08/20/2016 Acute midline thoracic back pain 03/31/2016 08/20/2016 Backache, unspecified 03/14/2013 08/20/2016 COPD with chronic bronchitis 04/2021 HTN (hypertension) 08/20/2016 documented as of this encounter (statuses as of 06/12/2022) [facility]* Problem Noted Date Resolved Date Skin ulcer 02/09/2019 08/16/2020 Obesity, Class II, BMI 35-39.9 12/02/2017 1 Pain, neck 03/31/2016 08/20/2016 Acute midline thoracic back pain 03/31/2016 08/20/2016 Backache, unspecified 03/14/2013 08/20/2016 COPD with chronic bronchitis 04/2021 HTN (hypertension) 08/20/2016 documented as of this encounter (statuses as of 06/14/2022) [facility]* Problem Noted Date Resolved Date Skin ulcer 02/09/2019 08/16/2020 Obesity, Class II, BMI 35-39.9 12/02/2017 1 Pain, neck 03/31/2016 08/20/2016 Acute midline thoracic back pain 03/31/2016 08/20/2016 Backache, unspecified 03/14/2013 08/20/2016 COPD with chronic bronchitis 04/2021 HTN (hypertension) 08/20/2016 documented as of this encounter (statuses as of 06/20/2022) [facility]* Problem Noted Date Resolved Date Skin ulcer 02/09/2019 08/16/2020 Obesity, Class II, BMI 35-39.9 12/02/2017 1 Pain, neck 03/31/2016 08/20/2016 Acute midline thoracic back pain 03/31/2016 08/20/2016 Backache, unspecified 03/14/2013 08/20/2016 COPD with chronic bronchitis 04/2021 HTN (hypertension) 08/20/2016 documented as of this encounter (statuses as of 06/25/2022) [facility]* Problem Noted Date Resolved Date Skin ulcer 02/09/2019 08/16/2020 Obesity, Class II, BMI 35-39.9 12/02/2017 1 Pain, neck 03/31/2016 08/20/2016 Acute midline thoracic back pain 03/31/2016 08/20/2016 Backache, unspecified 03/14/2013 08/20/2016 COPD with chronic bronchitis 04/2021 HTN (hypertension) 08/20/2016 documented as of this encounter (statuses as of 06/26/2022) [facility]* Problem Noted Date Resolved Date Skin ulcer 02/09/2019 08/16/2020 Obesity, Class II, BMI 35-39.9 12/02/2017 1 Pain, neck 03/31/2016 08/20/2016 Acute midline thoracic back pain 03/31/2016 08/20/2016 Backache, unspecified 03/14/2013 08/20/2016 COPD with chronic bronchitis 04/2021 HTN (hypertension) 08/20/2016 documented as of this encounter (statuses as of 07/01/2022) [facility]* Problem Noted Date Resolved Date Skin ulcer 02/09/2019 08/16/2020 Obesity, Class II, BMI 35-39.9 12/02/2017 1 Pain, neck 03/31/2016 08/20/2016 Acute midline thoracic back pain 03/31/2016 08/20/2016 Backache, unspecified 03/14/2013 08/20/2016 COPD with chronic bronchitis 04/2021 HTN (hypertension) 08/20/2016 documented as of this encounter (statuses as of 07/01/2022) [facility]* Problem Noted Date Resolved Date Skin ulcer 02/09/2019 08/16/2020 Obesity, Class II, BMI 35-39.9 12/02/2017 1 Pain, neck 03/31/2016 08/20/2016 Acute midline thoracic back pain 03/31/2016 08/20/2016 Backache, unspecified 03/14/2013 08/20/2016 COPD with chronic bronchitis 04/2021 HTN (hypertension) 08/20/2016 documented as of this encounter (statuses as of 07/03/2022) [facility]* Problem Noted Date Resolved Date Skin ulcer 02/09/2019 08/16/2020 Obesity, Class II, BMI 35-39.9 12/02/2017 1 Pain, neck 03/31/2016 08/20/2016 Acute midline thoracic back pain 03/31/2016 08/20/2016 Backache, unspecified 03/14/2013 08/20/2016 COPD with chronic bronchitis 04/2021 HTN (hypertension) 08/20/2016 documented as of this encounter (statuses as of 07/09/2022) [facility] History of Past illness Narrative* Problem Noted Date Resolved Date Skin ulcer 02/09/2019 08/16/2020 Obesity, Class II, BMI 35-39.9 12/02/2017 1 Pain, neck 03/31/2016 08/20/2016 Acute midline thoracic back pain 03/31/2016 08/20/2016 Backache, unspecified 03/14/2013 08/20/2016 COPD with chronic bronchitis 04/2021 HTN (hypertension) 08/20/2016 documented as of this encounter (statuses as of 07/16/2022) [facility] History of Past illness Narrative* Problem Noted Date Resolved Date Skin ulcer 02/09/2019 08/16/2020 Obesity, Class II, BMI 35-39.9 12/02/2017 1 Pain, neck 03/31/2016 08/20/2016 Acute midline thoracic back pain 03/31/2016 08/20/2016 Backache, unspecified 03/14/2013 08/20/2016 COPD with chronic bronchitis 04/2021 HTN (hypertension) 08/20/2016 documented as of this encounter (statuses as of 07/17/2022) [facility] History of Past illness Narrative* Problem Noted Date Resolved Date Skin ulcer 02/09/2019 08/16/2020 Obesity, Class II, BMI 35-39.9 12/02/2017 1 Pain, neck 03/31/2016 08/20/2016 Acute midline thoracic back pain 03/31/2016 08/20/2016 Backache, unspecified 03/14/2013 08/20/2016 COPD with chronic bronchitis 04/2021 HTN (hypertension) 08/20/2016 documented as of this encounter (statuses as of 07/22/2022) [facility] History of Past illness Narrative* Problem Noted Date Resolved Date Skin ulcer 02/09/2019 08/16/2020 Obesity, Class II, BMI 35-39.9 12/02/2017 1 Pain, neck 03/31/2016 08/20/2016 Acute midline thoracic back pain 03/31/2016 08/20/2016 Backache, unspecified 03/14/2013 08/20/2016 COPD with chronic bronchitis 04/2021 HTN (hypertension) 08/20/2016 documented as of this encounter (statuses as of 08/07/2022) [facility] History of Past illness Narrative* Problem Noted Date Resolved Date Skin ulcer 02/09/2019 08/16/2020 Obesity, Class II, BMI 35-39.9 12/02/2017 1 Pain, neck 03/31/2016 08/20/2016 Acute midline thoracic back pain 03/31/2016 08/20/2016 Backache, unspecified 03/14/2013 08/20/2016 COPD with chronic bronchitis 04/2021 HTN (hypertension) 08/20/2016 documented as of this encounter (statuses as of 08/11/2022) [facility] History of Past illness Narrative* Problem Noted Date Resolved Date Skin ulcer 02/09/2019 08/16/2020 Obesity, Class II, BMI 35-39.9 12/02/2017 1 Pain, neck 03/31/2016 08/20/2016 Acute midline thoracic back pain 03/31/2016 08/20/2016 Backache, unspecified 03/14/2013 08/20/2016 COPD with chronic bronchitis 04/2021 HTN (hypertension) 08/20/2016 documented as of this encounter (statuses as of 09/01/2022) [facility] History of Past illness Narrative* Problem Noted Date Resolved Date Skin ulcer 02/09/2019 08/16/2020 Obesity, Class II, BMI 35-39.9 12/02/2017 1 Pain, neck 03/31/2016 08/20/2016 Acute midline thoracic back pain 03/31/2016 08/20/2016 Backache, unspecified 03/14/2013 08/20/2016 COPD with chronic bronchitis 04/2021 HTN (hypertension) 08/20/2016 documented as of this encounter (statuses as of 09/11/2022) [facility] History of Past illness Narrative* Problem Noted Date Resolved Date Skin ulcer 02/09/2019 08/16/2020 Obesity, Class II, BMI 35-39.9 12/02/2017 1 Pain, neck 03/31/2016 08/20/2016 Acute midline thoracic back pain 03/31/2016 08/20/2016 Backache, unspecified 03/14/2013 08/20/2016 COPD with chronic bronchitis 04/2021 HTN (hypertension) 08/20/2016 documented as of this encounter (statuses as of 09/20/2022) [facility] History of Past illness Narrative* Problem Noted Date Resolved Date Skin ulcer 02/09/2019 08/16/2020 Obesity, Class II, BMI 35-39.9 12/02/2017 1 Pain, neck 03/31/2016 08/20/2016 Acute midline thoracic back pain 03/31/2016 08/20/2016 Backache, unspecified 03/14/2013 08/20/2016 COPD with chronic bronchitis 04/2021 HTN (hypertension) 08/20/2016 documented as of this encounter (statuses as of 09/29/2022) [facility] Vibha Ramos [facility] December 15, 2022 2:11pm Note Date/Time December 15, 2022 2:11 pm [facility] Medical Records Department [address] [place] [address] Counseling Note - Pharmacy 12/15/22 1410 MR#: [id number] Acct: [id number] Name: KANDI CORREIA Rep #:[id number] : 1945 77 From: Vibha Ramos PCP: Dr. Jalyn Smith MD Status:ADM I NO Y Location: [place] [address] [facility] [place] [facility] Reconciliation Pharmacy Service has performed discharge medication reconciliation for this patient. The patient's discharge medication list was reviewed for discrepancies and discrepancies were resolved. Medications at Discharge Home Medications albuterol sulfate 90 mcg/actuation aerosol inhaler 2 puff inhalation Q4H PRN Sob&/Or Wheezing 10/14/18 metformin 500 mg tablet 500 mg PO DAILY Blood sugar 10/14/18 ropinirole 0.5 mg tablet 1.5 mg PO QHS Restless leg 10/14/18 Oxygen ##1 10/27/18 ipratropium 0.5 mg-albuterol 3 mg (2.5 mg base)/3 mL nebulization soln 1 dose inhalation 4X/DAY Breathing 12/22/18 oxybutynin chloride 5 mg tablet 5 mg PO DAILY Bladder 07/25/21 sertraline 50 mg tablet 50 mg PO DAILY Mood 07/25/21 acetaminophen 500 mg tablet 1,000 mg (2 x 500 mg) PO Q6H PRN PRN Pain Score 1-3 #0 tabs 08/07/21 gabapentin 100 mg capsule 100 mg PO TIDCM 30 days #90 caps 08/07/21 arformoterol 15 mcg/2 mL solution for nebulization 15 mcg inhalation Q12H breathing 12/11/22 hydrochlorothiazide 25 mg tablet 25 mg PO DAILY #0 tabs 12/15/22 metoprolol succinate 50 mg tablet,extended release 24 hr 50 mg PO DAILY 30 days #0 tabs 12/15/22 12/15/22 1411 <Electronically signed by Vibha Ramos> Date _ Vibha Ramos Cosigner Signature (if applicable): Date CC: ~ Signed [facility] Work Phone: Discharge summary Author [facility] December 15, 2022 3:23pm Note Date/Time December 15, 2022 3:24 pm [facility] Medical Records Department [address] [place] [id number] Transfer to [facility] MR#: [id number] Acct: [id number] Name: KANDI CORREIA Rep #:[id number] : 1945 77 From: Chris Marie PCP: Dr. Jalyn Smith MD Status:ADM I NO Certification of patient admission REQUIRED AT TIME OF ADMISSION. I CERTIFY THAT POST-HOSPITAL ECF SERVICES ARE REQUIRED TO BE GIVEN ON AN IN-PATIENT BASIS BECAUSE OF THE ABOVE NAMED PATIENT'S NEED FOR JAIL CARE ON A CONTINUING BASIS FOR THE CONDITION(S) FOR WHICH HE/SHE WAS RECEIVINGIN-PATIENT HOSPITAL SERVICES PRIOR TO HIS/HER TRANSFER TO THE F. 12/15/22 152<Electronically signed by Chris Deshpande MD> 12/15/22 152 <Electronically signed by Chris Deshpande MD> Cosigner Signature (if applicable): CC: Dr. Burke Patterson MD; Dr. Angle Latham MD; Dr. Jalyn Smith MD ~ [facility] Work Phone: Evaluation note* Diagnosis Type 2 diabetes mellitus without complication, without long-term current use of insulin (HCC)- Primary documented in this encounter [facility] note* Diagnosis Puncture wound of left calf- Primary [facility] Diagnosis Wound of left lower extremity, subsequent encounter- Primary [facility]* Diagnosis Chronic obstructive pulmonary disease, unspecified COPD type (HCC) [facility] Diagnosis Onset Date Resolution Status Debility acute Diabetes mellitus acute Gastroesophageal reflux disease acute Left knee DJD acute Osteoarthritis acute Restless leg syndrome acute Right knee DJD acute Chronic obstructive pulmonary disease chronic Hypertension chronic Acute on chronic diastolic congestive heart failure resolved Muscle spasm resolved Debility acute Diabetes mellitus acute Gastroesophageal reflux disease acute Left knee DJD acute Osteoarthritis acute Restless leg syndrome acute Right knee DJD acute Venous stasis ulcer of left lower leg with edema of left lower leg acute Chronic obstructive pulmonary disease chronic Essential hypertension chron ic Hypertension [facility] Work Phone: Evaluation note* Diagnosis Type 2 diabetes mellitus without complication, without long-term current use of insulin (HCC) documented in this encounter [facility] note* Diagnosis Type 2 diabetes mellitus without complication, without long-term current use of insulin (HCC) documented in this encounter [facility] note* Diagnosis Onset Date Resolution Status Debility acute Diabetes mellitus acute Gastroesophageal reflux disease acute Left knee DJD acute Osteoarthritis acute Restless leg syndrome acute Right knee DJD acute Chronic obstructive pulmonary disease chronic Hypertension chronic Acute on chronic diastolic congestive heart failure resolved Muscle spasm resolved Debility acute Diabetes mellitus acute Gastroesophageal reflux disease acute Left knee DJD acute Osteoarthritis acute Restless leg syndrome acute Right knee DJD acute Venous stasis ulcer of left lower leg with edema of left lower leg acute Chronic obstructive pulmonary disease chronic Essential hypertension chron ic Hypertension chronic Debility acute Diabetes mellitus acute Gastroesophageal reflux disease acute Left knee DJD acute Osteoarthritis acute Restless leg syndrome acute Right knee DJD acute Venous stasis ulcer of left lower leg with edema of left lower leg acute Chronic obstructive pulmonary disease chronic Essential hypertension chron ic Hypertension [facility] Work Phone: Evaluation note* Diagnosis DDD (degenerative disc disease), lumbar Degeneration of lumbar or lumbosacral intervertebral disc Essential hypertension Unspecified essential hypertension [facility] Diagnosis Onset Date Resolution Status Debility acute Diabetes mellitus acute Gastroesophageal reflux disease acute Left knee DJD acute Osteoarthritis acute Restless leg syndrome acute Right knee DJD acute Venous stasis ulcer of left lower leg with edema of left lower leg acute Chronic obstructive pulmonary disease chronic Essential hypertension chron ic Hypertension chronic Debility acute Diabetes mellitus acute Gastroesophageal reflux disease acute Left knee DJD acute Osteoarthritis acute Restless leg syndrome acute Right knee DJD acute Venous stasis ulcer of left lower leg with edema of left lower leg acute Chronic obstructive pulmonary disease chronic Essential hypertension chron ic Hypertension chronic Debility acute Diabetes mellitus acute Venous stasis ulcer of left lower leg with edema of left lower leg acute Chronic obstructive pulmonary disease chronic Essential hypertension chron ic Hypertension chronic Debility acute Diabetes mellitus acute Venous stasis ulcer of left lower leg with edema of left lower leg acute Chronic obstructive pulmonary disease chronic Essential hypertension chron ic Hypertension [facility] Work Phone: Evaluation note* Diagnosis Type 2 diabetes mellitus without complication, without long-term current use of insulin ([facility]) DDD (degenerative disc disease), lumbar Degeneration of lumbar or lumbosacral intervertebral disc [facility] Diagnosis Onset Date Resolution Status Debility acute Diabetes mellitus acute Gastroesophageal reflux disease acute Left knee DJD acute Osteoarthritis acute Restless leg syndrome acute Right knee DJD acute Venous stasis ulcer of left lower leg with edema of left lower leg acute Chronic obstructive pulmonary disease chronic Essential hypertension chron ic Hypertension chronic Debility acute Diabetes mellitus acute Venous stasis ulcer of left lower leg with edema of left lower leg acute Chronic obstructive pulmonary disease chronic Essential hypertension chron ic Hypertension chronic Debility acute Diabetes mellitus acute Venous stasis ulcer of left lower leg with edema of left lower leg acute Chronic obstructive pulmonary disease chronic Essential hypertension chron ic Hypertension chronic Debility acute Diabetes mellitus acute Venous stasis ulcer of left lower leg with edema of left lower leg acute Chronic obstructive pulmonary disease chronic Essential hypertension chron ic Hypertension [facility] Work Phone: Evaluation note* Diagnosis Onset Date Resolution Status Debility acute Diabetes mellitus acute Gastroesophageal reflux disease acute Left knee DJD acute Osteoarthritis acute Restless leg syndrome acute Right knee DJD acute Venous stasis ulcer of left lower leg with edema of left lower leg acute Chronic obstructive pulmonary disease chronic Essential hypertension chron ic Hypertension chronic Debility acute Diabetes mellitus acute Venous stasis ulcer of left lower leg with edema of left lower leg acute Chronic obstructive pulmonary disease chronic Essential hypertension chron ic Hypertension chronic Debility acute Diabetes mellitus acute Venous stasis ulcer of left lower leg with edema of left lower leg acute Chronic obstructive pulmonary disease chronic Essential hypertension chron ic Hypertension chronic Debility acute Diabetes mellitus acute Venous stasis ulcer of left lower leg with edema of left lower leg acute Chronic obstructive pulmonary disease chronic Essential hypertension chron ic Hypertension chronic Debility acute Diabetes mellitus acute Venous stasis ulcer of left lower leg with edema of left lower leg acute Chronic obstructive pulmonary disease chronic Essential hypertension chron ic Hypertension [facility] Work Phone: Evaluation note* Diagnosis DDD (degenerative disc disease), lumbar Degeneration of lumbar or lumbosacral intervertebral disc Essential hypertension Unspecified essential hypertension Type 2 diabetes mellitus without complication, without long-term current use of insulin (HCC) documented in this encounter [facility] note* Diagnosis DDD (degenerative disc disease), lumbar Degeneration of lumbar or lumbosacral intervertebral disc documented in this encounter [facility] note* Diagnosis Thoracic aortic aneurysm without rupture, unspecified part- Primary Essential hypertension Unspecified essential hypertension Dissection of descending aorta (HCC) MICHEL (obstructive sleep apnea) Obstructive sleep apnea (adult) (pediatric) Type 2 diabetes mellitus without complication, without long-term current use of insulin (HCC) Centrilobular emphysema (HCC) Other emphysema DDD (degenerative disc disease), lumbar Degeneration of lumbar or lumbosacral intervertebral disc Screen for colon cancer Special screening for malignant neoplasms, colon Need for influenza vaccination Need for prophylactic vaccination and inoculation against influenza Need for vaccination Need for prophylactic vaccination and inoculation against unspecified single disease [facility]* Diagnosis Dissection of descending thoracic aorta- Primary Dissection of aorta, thoracic Aortic dissection, abdominal (HCC) Dissection of aorta, abdominal documented in this encounter [facility] note* Diagnosis Tobacco abuse Tobacco use disorder documented in this encounter [facility] note* Diagnosis Chronic obstructive pulmonary disease, unspecified COPD type ([facility])- Primary documented in this encounter [facility] note* Diagnosis Stage 3 severe COPD by GOLD classification ([facility])- Primary Dependence on continuous supplemental oxygen Class 1 obesity due to excess calories with body mass index (BMI) of 34.0 to 34.9 in adult, unspecified whether serious comorbidity present documented in this encounter [facility] note* Diagnosis Type 2 diabetes mellitus without complication, without long-term current use of insulin (HCC) DDD (degenerative disc disease), lumbar Degeneration of lumbar or lumbosacral intervertebral disc documented in this encounter [facility] note* Diagnosis Type 2 diabetes mellitus without complication, without long-term current use of insulin (HCC) DDD (degenerative disc disease), lumbar Degeneration of lumbar or lumbosacral intervertebral disc documented in this encounter [facility] note* Diagnosis Chronic obstructive pulmonary disease, unspecified COPD type ([facility]) documented in this encounter [facility] note* Diagnosis Stage 3 severe COPD by GOLD classification ([facility]) documented in this encounter [facility] note* Diagnosis Venous stasis ulcer of right calf without varicose veins, unspecified ulcer stage ([facility])- Primary Essential hypertension Unspecified essential hypertension Type 2 diabetes mellitus without complication, without long-term current use of insulin ([facility]) documented in this encounter [facility] note* Diagnosis DDD (degenerative disc disease), lumbar Degeneration of lumbar or lumbosacral intervertebral disc Essential hypertension Unspecified essential hypertension documented in this encounter [facility] note* Diagnosis Onset Date Resolution Status Diabetes mellitus acute Nonhealing ulcer of left low er extremity with fat layer exposed acute Nonhealing ulcer of right lo wer extremity with fat layer exposed acute Supplemental oxygen dependent acute Venous stasis ulcer of left lower leg with edema of left lower leg acute 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 acute Chronic obstructive pulmonary disease chronic Hypertension [facility] Work Phone: Evaluation note* Diagnosis Encounter for screening mammogram for breast cancer documented in this encounter [facility] note* Diagnosis Onset Date Resolution Status Diabetes mellitus acute Nonhealing ulcer of left low er extremity with fat layer exposed acute Nonhealing ulcer of right lo wer extremity with fat layer exposed acute Supplemental oxygen dependent acute Venous stasis ulcer of left lower leg with edema of left lower leg acute 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 acute Chronic obstructive pulmonary disease chronic Hypertension chronic Diabetes mellitus acute Nonhealing ulcer of left low er extremity with fat layer exposed acute Nonhealing ulcer of right lo wer extremity with fat layer exposed acute Supplemental oxygen dependent acute Venous stasis ulcer of left lower leg with edema of left lower leg acute 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 acute Chronic obstructive pulmonary disease chronic Hypertension [facility] Work Phone: Evaluation note* Diagnosis Essential hypertension- Primary Unspecified essential hypertension Thoracic aortic aneurysm without rupture, unspecified part (HCC) Dissection of descending aorta (HCC) Centrilobular emphysema (HCC) Other emphysema MICHEL (obstructive sleep apnea) Obstructive sleep apnea (adult) (pediatric) Chronic respiratory failure with hypoxia (HCC) Chronic respiratory failure Type 2 diabetes mellitus without complication, without long-term current use of insulin (HCC) Recurrent major depression in partial remission (HCC) Major depressive disorder, recurrent episode, in partial or unspecified remission Need for hepatitis C screening test Special screening examination for other specified viral diseases [facility] Diagnosis Onset Date Resolution Status Diabetes mellitus acute Nonhealing ulcer of left low er extremity with fat layer exposed acute Nonhealing ulcer of right lo wer extremity with fat layer exposed acute Supplemental oxygen dependent acute Venous stasis ulcer of left lower leg with edema of left lower leg acute 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 acute Chronic obstructive pulmonary disease chronic Hypertension chronic Diabetes mellitus acute Nonhealing ulcer of left low er extremity with fat layer exposed acute Nonhealing ulcer of right lo wer extremity with fat layer exposed acute Supplemental oxygen dependent acute Venous stasis ulcer of left lower leg with edema of left lower leg acute 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 acute Chronic obstructive pulmonary disease chronic Hypertension chronic Diabetes mellitus acute Nonhealing ulcer of left low er extremity with fat layer exposed acute Nonhealing ulcer of right lo wer extremity with fat layer exposed acute Supplemental oxygen dependent acute Venous stasis ulcer of left lower leg with edema of left lower leg acute 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 acute Chronic obstructive pulmonary disease chronic Hypertension [facility] Work Phone: Evaluation note* Diagnosis Shortness of breath [facility] Diagnosis Shortness of breath [facility] Diagnosis Onset Date Resolution Status Diabetes mellitus acute Nonhealing ulcer of left low er extremity with fat layer exposed acute Nonhealing ulcer of right lo wer extremity with fat layer exposed acute Supplemental oxygen dependent acute Venous stasis ulcer of left lower leg with edema of left lower leg acute 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 acute Chronic obstructive pulmonary disease chronic Hypertension chronic Diabetes mellitus acute Nonhealing ulcer of left low er extremity with fat layer exposed acute Nonhealing ulcer of right lo wer extremity with fat layer exposed acute Supplemental oxygen dependent acute Venous stasis ulcer of left lower leg with edema of left lower leg acute 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 acute Chronic obstructive pulmonary disease chronic Hypertension chronic Diabetes mellitus acute Nonhealing ulcer of left low er extremity with fat layer exposed acute Nonhealing ulcer of right lo wer extremity with fat layer exposed acute Supplemental oxygen dependent acute Venous stasis ulcer of left lower leg with edema of left lower leg acute 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 acute Chronic obstructive pulmonary disease chronic Hypertension chronic Diabetes mellitus acute Nonhealing ulcer of left low er extremity with fat layer exposed acute Nonhealing ulcer of right lo wer extremity with fat layer exposed acute Supplemental oxygen dependent acute Venous stasis ulcer of left lower leg with edema of left lower leg acute 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 acute Chronic obstructive pulmonary disease chronic Hypertension [facility] Work Phone: Evaluation note* Diagnosis Dysuria- Primary [facility] Diagnosis Onset Date Resolution Status Diabetes mellitus acute Nonhealing ulcer of left low er extremity with fat layer exposed acute Nonhealing ulcer of right lo wer extremity with fat layer exposed acute Supplemental oxygen dependent acute Venous stasis ulcer of left lower leg with edema of left lower leg acute 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 acute Chronic obstructive pulmonary disease chronic Hypertension chronic Diabetes mellitus acute Nonhealing ulcer of left low er extremity with fat layer exposed acute Nonhealing ulcer of right lo wer extremity with fat layer exposed acute Supplemental oxygen dependent acute Venous stasis ulcer of left lower leg with edema of left lower leg acute 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 acute Chronic obstructive pulmonary disease chronic Hypertension chronic Diabetes mellitus acute Nonhealing ulcer of left low er extremity with fat layer exposed acute Nonhealing ulcer of right lo wer extremity with fat layer exposed acute Supplemental oxygen dependent acute Venous stasis ulcer of left lower leg with edema of left lower leg acute 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 acute Chronic obstructive pulmonary disease chronic Hypertension chronic Diabetes mellitus acute Nonhealing ulcer of left low er extremity with fat layer exposed acute Nonhealing ulcer of right lo wer extremity with fat layer exposed acute Supplemental oxygen dependent acute Venous stasis ulcer of left lower leg with edema of left lower leg acute 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 acute Chronic obstructive pulmonary disease chronic Hypertension chronic CATHI (acute kidney injury) ac tyonek Anemia acute Diabetes mellitus acute Falls acute Weakness acute Chronic obstructive pulmonary disease chronic Hypertension [facility] Work Phone: Evaluation note* Diagnosis Essential hypertension- Primary Unspecified essential hypertension Thoracic aortic aneurysm without rupture, unspecified part (HCC) MICHEL (obstructive sleep apnea) Obstructive sleep apnea (adult) (pediatric) Type 2 diabetes mellitus without complication, without long-term current use of insulin ([facility]) Osteoarthritis of both knees, unspecified osteoarthritis type Anemia, unspecified type Renal insufficiency Unspecified disorder of kidney and ureter Microscopic hematuria Melena Blood in stool NYHA class 2 and ACC/AHA stage C acute on chronic systolic congestive heart failure ([facility]) [facility] Onset Date Resolution Status Diabetes mellitus acute Nonhealing ulcer of left low er extremity with fat layer exposed acute Nonhealing ulcer of right lo wer extremity with fat layer exposed acute Supplemental oxygen dependent acute Venous stasis ulcer of left lower leg with edema of left lower leg acute 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 acute Chronic obstructive pulmonary disease chronic Hypertension chronic Diabetes mellitus acute Nonhealing ulcer of left low er extremity with fat layer exposed acute Nonhealing ulcer of right lo wer extremity with fat layer exposed acute Supplemental oxygen dependent acute Venous stasis ulcer of left lower leg with edema of left lower leg acute 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 acute Chronic obstructive pulmonary disease chronic Hypertension chronic Diabetes mellitus acute Nonhealing ulcer of left low er extremity with fat layer exposed acute Nonhealing ulcer of right lo wer extremity with fat layer exposed acute Supplemental oxygen dependent acute Venous stasis ulcer of left lower leg with edema of left lower leg acute 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 acute Chronic obstructive pulmonary disease chronic Hypertension chronic Diabetes mellitus acute Nonhealing ulcer of left low er extremity with fat layer exposed acute Nonhealing ulcer of right lo wer extremity with fat layer exposed acute Supplemental oxygen dependent acute Venous stasis ulcer of left lower leg with edema of left lower leg acute 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 acute Chronic obstructive pulmonary disease chronic Hypertension chronic Anemia acute Diabetes mellitus acute Falls acute Chronic obstructive pulmonary disease chronic Hypertension chronic CATHI (acute kidney injury) re solved Blood in stool acute Debility acute Depression acute Diabetes mellitus acute Diabetic polyneuropathy acut e Osteoarthritis acute Overactive bladder acute Restless leg syndrome acute Urinary tract infection acut e Chronic obstructive pulmonary disease chronic Hypertension chronic CATHI (acute kidney injury) re solved [facility] Work Phone: Evaluation note* Diagnosis Onset Date Resolution Status Diabetes mellitus acute Nonhealing ulcer of left low er extremity with fat layer exposed acute Nonhealing ulcer of right lo wer extremity with fat layer exposed acute Supplemental oxygen dependent acute Venous stasis ulcer of left lower leg with edema of left lower leg acute 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 acute Chronic obstructive pulmonary disease chronic Hypertension chronic Diabetes mellitus acute Nonhealing ulcer of left low er extremity with fat layer exposed acute Nonhealing ulcer of right lo wer extremity with fat layer exposed acute Supplemental oxygen dependent acute Venous stasis ulcer of left lower leg with edema of left lower leg acute 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 acute Chronic obstructive pulmonary disease chronic Hypertension chronic Diabetes mellitus acute Nonhealing ulcer of left low er extremity with fat layer exposed acute Nonhealing ulcer of right lo wer extremity with fat layer exposed acute Supplemental oxygen dependent acute Venous stasis ulcer of left lower leg with edema of left lower leg acute 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 acute Chronic obstructive pulmonary disease chronic Hypertension chronic Anemia acute Diabetes mellitus acute Falls acute Chronic obstructive pulmonary disease chronic Hypertension chronic CATHI (acute kidney injury) re solved Blood in stool acute Debility acute Depression acute Diabetes mellitus acute Diabetic polyneuropathy acut e Osteoarthritis acute Overactive bladder acute Restless leg syndrome acute Urinary tract infection acut e Chronic obstructive pulmonary disease chronic Hypertension chronic CATHI (acute kidney injury) re solved Diabetes mellitus acute Nonhealing ulcer of left low er extremity with fat layer exposed acute Nonhealing ulcer of right lo wer extremity with fat layer exposed acute Supplemental oxygen dependent acute Venous stasis ulcer of left lower leg with edema of left lower leg acute 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 acute Chronic obstructive pulmonary disease chronic Hypertension chronic [facility] Work Phone: Evaluation note* Diagnosis Diarrhea, unspecified type- Primary Microscopic hematuria Rectal bleeding Hemorrhage of rectum and anus Essential hypertension Unspecified essential hypertension Thoracic aortic aneurysm without rupture, unspecified part (HCC) Dissection of descending aorta (HCC) Chronic respiratory failure with hypoxia (HCC) Chronic respiratory failure Type 2 diabetes mellitus without complication, without long-term current use of insulin (HCC) Osteoarthritis of both knees, unspecified osteoarthritis type DDD (degenerative disc disease), lumbar Degeneration of lumbar or lumbosacral intervertebral disc [facility] Diagnosis Anemia, unspecified type- Primary [facility] Diagnosis Chronic obstructive pulmonary disease, unspecified COPD type (HCC)- Primary Dependence on continuous supplemental oxygen Former smoker Personal history of tobacco use, presenting hazards to health Class 2 obesity due to excess calories with body mass index (BMI) of 35.0 to 35.9 in adult, unspecified whether serious comorbidity present [facility]* Diagnosis Onset Date Resolution Status Diabetes mellitus acute Nonhealing ulcer of left low er extremity with fat layer exposed acute Nonhealing ulcer of right lo wer extremity with fat layer exposed acute Supplemental oxygen dependent acute Venous stasis ulcer of left lower leg with edema of left lower leg acute 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 acute Chronic obstructive pulmonary disease chronic Hypertension chronic Diabetes mellitus acute Nonhealing ulcer of left low er extremity with fat layer exposed acute Nonhealing ulcer of right lo wer extremity with fat layer exposed acute Supplemental oxygen dependent acute Venous stasis ulcer of left lower leg with edema of left lower leg acute 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 acute Chronic obstructive pulmonary disease chronic Hypertension chronic Diabetes mellitus acute Nonhealing ulcer of left low er extremity with fat layer exposed acute Nonhealing ulcer of right lo wer extremity with fat layer exposed acute Supplemental oxygen dependent acute Venous stasis ulcer of left lower leg with edema of left lower leg acute 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 acute Chronic obstructive pulmonary disease chronic Hypertension chronic Anemia acute Diabetes mellitus acute Falls acute Chronic obstructive pulmonary disease chronic Hypertension chronic CATHI (acute kidney injury) re solved Debility acute Depression acute Diabetes mellitus acute Diabetic polyneuropathy acut e Osteoarthritis acute Overactive bladder acute Restless leg syndrome acute Chronic obstructive pulmonary disease chronic Hypertension chronic CATHI (acute kidney injury) re solved Blood in stool resolved Urinary tract infection reso lved Diabetes mellitus acute Nonhealing ulcer of left low er extremity with fat layer exposed acute Nonhealing ulcer of right lo wer extremity with fat layer exposed acute Supplemental oxygen dependent acute Venous stasis ulcer of left lower leg with edema of left lower leg acute 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 acute Chronic obstructive pulmonary disease chronic Hypertension [facility] Work Phone: Evaluation note* Diagnosis Onset Date Resolution Status Diabetes mellitus acute Nonhealing ulcer of left low er extremity with fat layer exposed acute Nonhealing ulcer of right lo wer extremity with fat layer exposed acute Supplemental oxygen dependent acute Venous stasis ulcer of left lower leg with edema of left lower leg acute 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 acute Chronic obstructive pulmonary disease chronic Hypertension chronic Anemia acute Diabetes mellitus acute Falls acute Chronic obstructive pulmonary disease chronic Hypertension chronic CATHI (acute kidney injury) re solved Debility acute Depression acute Diabetes mellitus acute Diabetic polyneuropathy acut e Osteoarthritis acute Overactive bladder acute Restless leg syndrome acute Chronic obstructive pulmonary disease chronic Hypertension chronic CATHI (acute kidney injury) re solved Blood in stool resolved Urinary tract infection reso lved Diabetes mellitus acute Nonhealing ulcer of left low er extremity with fat layer exposed acute Nonhealing ulcer of right lo wer extremity with fat layer exposed acute Supplemental oxygen dependent acute Venous stasis ulcer of left lower leg with edema of left lower leg acute 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 acute Chronic obstructive pulmonary disease chronic Hypertension [facility] Work Phone: Evaluation note* Diagnosis Stage 3 severe COPD by GOLD classification ([facility]) documented in this encounter [facility] note* Diagnosis DDD (degenerative disc disease), lumbar Degeneration of lumbar or lumbosacral intervertebral disc Essential hypertension Unspecified essential hypertension documented in this encounter [facility] note* Diagnosis Dissection of descending thoracic aorta (HCC) Dissection of aorta, thoracic Aortic dissection, abdominal (HCC) Dissection of aorta, abdominal documented in this encounter [facility] note* Diagnosis Dissection of descending thoracic aorta (HCC) Dissection of aorta, thoracic Aortic dissection, abdominal (HCC) Dissection of aorta, abdominal documented in this encounter [facility] note* Diagnosis Type 2 diabetes mellitus without complication, without long-term current use of insulin (HCC) DDD (degenerative disc disease), lumbar Degeneration of lumbar or lumbosacral intervertebral disc documented in this encounter [facility] note* Diagnosis Chronic obstructive pulmonary disease, unspecified COPD type ([facility]) documented in this encounter [facility] note* Diagnosis COPD, severe (HCC)- Primary Chronic airway obstruction, not elsewhere classified Chronic respiratory failure with hypoxia ([facility]) Chronic respiratory failure Former cigarette smoker Personal history of tobacco use, presenting hazards to health Class 2 obesity [facility]- Primary Restless legs syndrome (RLS) Type 2 diabetes mellitus without complication, without long-term current use of insulin (HCC) DDD (degenerative disc disease), lumbar Degeneration of lumbar or lumbosacral intervertebral disc [facility] Diagnosis Restless leg Restless legs syndrome (RLS) [facility] Diagnosis Type 2 diabetes mellitus without complication, without long-term current use of insulin (HCC) DDD (degenerative disc disease), lumbar Degeneration of lumbar or lumbosacral intervertebral disc [facility] noteNo assessment information availableWBerger [facility] Work Phone: Evaluation note* Diagnosis Bacterial pneumonia- Primary Bacterial pneumonia, unspecified Type 2 diabetes mellitus without complication, without long-term current use of insulin (HCC) Chronic respiratory failure with hypoxia (HCC) Chronic respiratory failure MICHEL (obstructive sleep apnea) Obstructive sleep apnea (adult) (pediatric) [facility] Diagnosis Renal insufficiency- Primary Unspecified disorder of kidney and ureter Anemia, unspecified type Abdominal aortic aneurysm (AAA) without rupture, unspecified part (HCC) Infiltrate noted on imaging study Other nonspecific (abnormal) findings on radiological and other examinations of body structure [facility]* Diagnosis Hypoxemia- Primary [facility]* Diagnosis Thoracic aortic aneurysm without rupture, unspecified part (HCC)- Primary Dissection of descending aorta (HCC) Abdominal aortic aneurysm (AAA) without rupture, unspecified part (HCC) [facility]* Diagnosis Thoracic aortic aneurysm without rupture, unspecified part (HCC)- Primary Dissection of descending aorta (HCC) Abdominal aortic aneurysm (AAA) without rupture, unspecified part (HCC) Centrilobular emphysema (HCC) Other emphysema 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, thoracoabdominal [facility]* Diagnosis Microscopic hematuria- Primary [facility] Diagnosis Hypoxemia [facility] Diagnosis Pneumonia of both lower lobes due to infectious organism- Primary COPD, severe (HCC) Chronic airway obstruction, not elsewhere classified Chronic respiratory failure with hypoxia (HCC) Chronic respiratory failure Former cigarette smoker Personal history of tobacco use, presenting hazards to health Class 2 obesity [facility] Diagnosis Restless leg Restless legs syndrome (RLS) Type 2 diabetes mellitus without complication, without long-term current use of insulin (HCC) [facility]* Diagnosis Thoracic aortic aneurysm without rupture, unspecified part (HCC) Dissection of descending aorta (HCC) Abdominal aortic aneurysm (AAA) without rupture, unspecified part (HCC) 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, thoracoabdominal [facility]* Diagnosis Restless leg Restless legs syndrome (RLS) [facility]* Diagnosis 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, 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) Thoracic aortic aneurysm without rupture, unspecified part (HCC) Type 2 diabetes mellitus with diabetic nephropathy, with long-term current use of insulin (HCC) NYHA class 2 and ACC/AHA stage C acute on chronic systolic congestive heart failure (HCC) [facility]* Diagnosis Type 2 diabetes mellitus without complication, without long-term current use of insulin (HCC) [facility]* Diagnosis COPD, severe (HCC) Chronic airway obstruction, not elsewhere classified [facility]* Diagnosis COPD, severe (HCC)- Primary Chronic airway obstruction, not elsewhere classified Chronic respiratory failure with hypoxia (HCC) Chronic respiratory failure Former cigarette smoker Personal history of tobacco use, presenting hazards to health Class 2 obesity [facility] Diagnosis Shortness of breath [facility]* Diagnosis COPD, severe (HCC) Chronic airway obstruction, not elsewhere classified [facility]* Diagnosis Restless leg Restless legs syndrome (RLS) [facility]* Diagnosis Bacterial pneumonia Bacterial pneumonia, unspecified [facility]* Diagnosis Essential hypertension- Primary Unspecified essential hypertension Encounter for immunization Need for other specified prophylactic vaccination against single bacterial disease Thoracic aortic aneurysm without rupture, unspecified part (HCC) NYHA class 2 and ACC/AHA stage C acute on chronic systolic congestive heart failure (HCC) Abdominal aortic aneurysm (AAA) without rupture, unspecified part (HCC) 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, thoracoabdominal MICHEL (obstructive sleep apnea) Obstructive sleep apnea (adult) (pediatric) Chronic respiratory failure with hypoxia (HCC) Chronic respiratory failure On home oxygen therapy Dependence on supplemental oxygen Centrilobular emphysema (HCC) Other emphysema Type 2 diabetes mellitus without complication, without long-term current use of insulin (HCC) Recurrent major depression in partial remission (HCC) Major depressive disorder, recurrent episode, in partial or unspecified remission Degeneration of intervertebral disc of lumbar region, unspecified whether pain present Class 1 obesity with body mass index (BMI) of 30.0 to 30.9 in adult, unspecified obesity type, unspecified whether serious comorbidity present RLS (restless legs syndrome) Restless legs syndrome (RLS) Stage 3 chronic kidney disease, unspecified whether stage 3a or 3b CKD (HCC) Anemia, unspecified type Encounter for screening examination for other mental health and behavioral disorders [facility]* Diagnosis Anemia, unspecified type- Primary History of rectal bleeding Personal history of other diseases of digestive system Hypomagnesemia Disorders of magnesium metabolism [facility] Diagnosis Acute and chronic respiratory failure with hypoxia (HCC)- Primary Acute and chronic respiratory failure [facility]* Diagnosis COPD, severe (HCC) Chronic airway obstruction, not elsewhere classified [facility]* Diagnosis DDD (degenerative disc disease), lumbar Degeneration of lumbar or lumbosacral intervertebral disc Essential hypertension Unspecified essential hypertension Restless leg Restless legs syndrome (RLS) Hypomagnesemia Disorders of magnesium metabolism [facility] Diagnosis Restless leg Restless legs syndrome (RLS) [facility] Diagnosis Restless leg Restless legs syndrome (RLS) [facility] Diagnosis Urinary tract infection without hematuria, site unspecified- Primary Essential hypertension Unspecified essential hypertension Type 2 diabetes mellitus without complication, without long-term current use of insulin (HCC) Acute constipation Unspecified constipation Abdominal pain, unspecified abdominal location Chronic respiratory failure with hypoxia (HCC) Chronic respiratory failure [facility] Diagnosis Type 2 diabetes mellitus without complication, without long-term current use of insulin (HCC) [facility]* Diagnosis Restless leg Restless legs syndrome (RLS) [facility] Diagnosis Restless leg Restless legs syndrome (RLS) [facility] Diagnosis Restless leg Restless legs syndrome (RLS) [facility]* Diagnosis DDD (degenerative disc disease), lumbar Degeneration of lumbar or lumbosacral intervertebral disc Essential hypertension Unspecified essential hypertension [facility] Diagnosis 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)- Primary Dissection of aorta, unspecified site [facility]* Diagnosis COPD, severe (HCC) Chronic airway obstruction, not elsewhere classified documented in this encounter [facility] note* Diagnosis COPD, severe (HCC) Chronic airway obstruction, not elsewhere classified documented in this encounter [facility] note* Diagnosis Aneurysm of left common iliac artery Thoracic aortic aneurysm without rupture, unspecified part 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, thoracoabdominal Anemia, unspecified type History of rectal bleeding Personal history of other diseases of digestive system [facility] in [facility] Diagnosis Anemia, unspecified type documented in this encounter [facility] note* Diagnosis Acute and chronic respiratory failure with hypoxia (HCC)- Primary Acute and chronic respiratory failure [facility] Nisha Magallon [facility] January 09, 2023 1:36pm Note Date/Time January 09, 2023 1:3 6pm [facility] [address] [place] [address] Progress Note - Wound Care 01/09/23 1333 MR#: [id number] Acct: [id number] Name: KANDI CORREIA Rep #:[id number] : 1945 77 From: Nisha Magallon DO PCP: Dr. Jalyn Smith MD Status:REG R CR Location: History of Present Illness Date of Service: 01/09/23 Chief Complaint: Venous leg ulcer left lower extremity History of Wound: This is a 76-year-old white female who presents to the wound healing center today with complaint of nonhealing ulceration of her right and left lower extremities. She has a past medical history significant for chronic hypoxia on supplemental O2, COPD, type 2 diabetes mellitus, CHF, and osteoarthritis of the bilateral knees and GERD. The patient states that her wounds initially occurred after scratching the back of her leg on something almost a month ago. She saw her PCP last week and was started on Cephalexin QID x 10 days. She was 2 days left of treatment. She has not had any improvement in her pain or ulcers since starting the antibiotic. Shehas been applying triple antibiotic ointment covering with gauze for the last few days but had been using hydrogel and nonadherent dressings prior to that. She states that she has not been utilizing any compression due to pain but has been elevating her legs more frequently and using a wedge pillow. She denies any systemic or localized signs of infection at this time. Denies any prior cultures being taken. 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 Subjective Subjective Kandi is tolerating treatment with hydrogel and adaptic well and is healed today. Denies fever, chills, increased drainage, increased pain or increased erythema. Objective Data Objective Data Vital Signs: Vital Signs Temp Pulse Resp BP O2 Flow Rate 96.6 F L 79 18 132/79 H 2 01/09/23 09:34 01/09/23 09:34 01/09/23 09:34 01/09/23 09:34 12/06/22 01:18 Oxygen Flow Rate (L/min) 2 Weight: 91.777 kg Body Mass Index (BMI) 34.7 Physical Exam Const alert, oriented x3 and no apparent distress General Appearance: cooperative and comfortable HEENT normocephalic and head/scalp atraumatic Resp normal respiratory effort Effort and Inspection: able to speak in complete sentences Cardio regular rate and regular rhythm Skin Wounds: wounds noted Wound Narrative: as in clinical panel Psych mental status grossly normal, thought process normal, cooperative and affect normal Debridement Note Debridement Note Wound debrided: Left posterior LE No debridement was completed: No debridement was completed today (ulcer healed) Post-Debridement Measurements and Additional Note: Post-Debridement Measurements/Treatment WC - Nurse 1 - General Ulcer Assessment Start: 01/09/23 09:34 Freq: Status: Active Protocol: .LOWEXStu Activity Type Activity Date Activity User E-sign Co-sign Detail Recorded Client Recorded Date Recorded By Document 01/09/23 09:34 [id number] 01/09/23 09:38 01/09/23 09:34 - Today's Visit Information Type of service Follow-up Visit (Physician/REFINERY OPERATOR HELPER ) Arrival Mode Ambulatory, Walker Transfer Assistance None Patient Identification Verified (Name & Yes ) Patient Requires Transmission-Based No Precautions Height and Weight Body Mass Index (BMI) 34.7 BMI Classification Obese Vital Signs Temperature (97.8 F-99.1 F) 96.6 F L Temperature Source Temporal Pulse Rate (60-100) 79 Pulse Location Monitor Respiratory Rate (12-18) 18 Respiratory rate source Observation Blood Pressure (90/60-120/80) 132/79 H Blood Pressure Mean (mm Hg) 96 Source Monitor Position Semi-Fowlers Blood Pressure Location Left Forearm History Since Last Visit- (Skip if this is Patient's initial visit) Have you changed medications since your No last visit? Any new allergies or adverse reactions No Had a fall/change in ADL's that may No increase risk of falls Signs or symptoms of abuse and/or No neglect since last visit Have you been in the hospital since your No last visit? Has dressing in place as prescribed Yes Has compression in place as prescribed No Has offloadiing in place as prescribed No Experienced any changes in pain level or No management Pain Scale: 0-10 Numeric Is Patient Pain Free? Yes - Nurse 1 - General Ulcer Measurement Start: 01/09/23 09:34 Freq: Status: Active Protocol: Activity Type Activity Date Activity User E-sign Co-sign Detail Recorded Client Recorded Date Recorded By Document 01/09/23 09:34 CAROLINE [id number] 01/09/23 09:38 01/09/23 09:34 Wound Center Nurse 1 #2 R POST LE -Combined with other wound No -Current Size (cm) - Length 0.1 -Current Size (cm) - Width 0.1 -Current Size (cm) - Depth 0.1 -Total Square Cm 0.01 -Tunneling No -Undermining/Tunneling No -Circular Undermining No -Exudate Amt Medium -Exudate Type Serosanguineous -Wound Margin Distinct, Outline Attached -Granulation Amt Medium (34-66%) -Granulation Quality [place] -Slough/Fibrin Yes -Necrosis Amt Medium (34-66%) -Necrotic Tissue Type Adherent Slough -Structure Exposed N/A -Texture (Leticia-wound Skin Appearance) Assessed -Moisture (Leticia-wound Skin Appearance) Assessed -Color (Leticia-wound Skin Appearance) Assessed -Temperature (Leticia-wound Skin No Abnormality Appearance) (Pt Warm) -Tenderness on Palpation (Leticia-wound No Skin Appearance) -Ulcer Cleansing Wound Cleanser -Foul Odor after Cleansing No -Anesthetic Used 5% Lidocaine Gel Lower Limb Edema Present Yes Right Calf (cm) 39.5 Right Ankle (cm) 25 - Nurse 2 - General Ulcer CM Notes Start: 01/09/23 09:34 Freq: Status: Active Protocol: Activity Type Activity Date Activity User E-sign Co-sign Detail Recorded Client Recorded Date Recorded By Document 01/09/23 09:43 MW [id number] 01/09/23 09:52 MW 01/09/23 09:43 Wound Center Nurse 2 #2 R POST LE -Time 09:46 -Correct Patient Yes -Correct Side, Site, Position Yes -Correct Procedure Yes -Procedure Performed No -Post Debridement (cm) - Length 0 -Post Debridement (cm) - Width 0 -Total Square (Post) (cm) 0 -Tunneling No -Undermining/Tunneling No -Circular Undermining No -Wound/Ulcer Outcome Healed- Epithelialized Pain Scale: 0-10 Numeric Is Patient Pain Free? Yes - Nurse 3 - General Ulcer D/C NN Start: 01/09/23 09:34 Freq: Status: Active Protocol: Activity Type Activity Date Activity User E-sign Co-sign Detail Recorded Client Recorded Date Recorded By Document 01/09/23 10:05 RB [id number] 01/09/23 10:07 RB 01/09/23 10:05 Wound Care Center Nurse 3 #2 R POST LE -Primary Dressing Applied Mepilex Border -Other Dressing hydrogel -Mepilex Border 1 Right -Stockings Yes Left -Stockings Yes Treatment Response Procedure Tolerated Well Pain Scale: 0-10 Numeric Is Patient Pain Free? Yes Teaching: Wound Center Dressing Your Wound -Person Taught Patient -Teaching Method Discussion, Demonstration -Response to teaching Verbalize understanding WC - Visit Discharge Discharge Condition Stable Ambulatory Status Ambulatory, Walker Transportation Private Auto Medication Reconcilliation completed & No provided to patient/care provider Clinical Summary of Care Provided Yes Assessment/Plan Assessment/Plan (1) Venous stasis ulcer of left lower leg with edema of left lower leg: CODE(S): I83.029 - Varicose veins of left lower extremity with ulcer of unspecified site; I83.892 - Varicose veins of left lower extremity with other complications; L97.929 - Non-pressure chronic ulcer of unspecified part of left lower leg with unspecified severity; R60.9 - Edema, unspecified (2) Diabetes mellitus: CODE(S): E11.9 - Type 2 diabetes mellitus without complications QUALIFIERS: Diabetes mellitus type: type 2 Diabetes mellitus fdc insulin use: without long term care administrator use Diabetes mellitus complication status: with neurologic complications Diabetes mellitus complication detail: with polyneuropathy Qualified Code(s): E11.42 - Type 2 diabetes mellitus with diabetic polyneuropathy (3) Chronic obstructive pulmonary disease: CODE(S): J44.9 - Chronic obstructive pulmonary disease, unspecified QUALIFIERS: COPD type: unspecified COPD Qualified Code(s): J44.9 - Chronic obstructive pulmonary disease, unspecified (4) Hypertension: CODE(S): I10 - Essential (primary) hypertension QUALIFIERS: Hypertension type: primary hypertension Qualified Code(s): I10 - Essential (primary) hypertension (5) 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: CODE(S): I83.019 - Varicose veins of right lower extremity with ulcer of unspecified site; L97.919 - Non-pressure chronic ulcer of unspecified part of right lower leg with unspecified severity (6) Nonhealing ulcer of left lower extremity with fat layer exposed: CODE(S): L97.922 - Non-pressure chronic ulcer of unspecified part of left lower leg with fat layer exposed (7) Nonhealing ulcer of right lower extremity with fat layer exposed: CODE(S): L97.912 - Non-pressure chronic ulcer of unspecified part of rightlower leg with fat layer exposed (8) Supplemental oxygen dependent: CODE(S): Z99.81 - Dependence on supplemental oxygen PLAN: Plan Debridement performed today in clinic as annotated above. At home wound-care instructions: Will have her continue to apply hydrogel and cover with silicone foam bordered dressing every other day x 1 week and then apply lotion daily and protect. Off-loading: The patient was instructed to avoid pressure and friction on the affected areas. Reposition every 2 hours at minimum. Avoid prolonged standing and/or dangling of legs. When seated, feet should be elevated at chest level. Frequent ambulation is encouraged. Diet: Patient encouraged to increase protein intake while taking caution to avoid high carbohydrate and/or sugar intake. Labs/cultures/imaging: Vascular testing ordered to evaluate for arterial and venous disease showed incompetence of accessory saphenous veins b/l and normal arterial studies except decreased at level of great toe. Follow-up: Discharged today and will be happy to se her again in the future. Note: [employer] speech recognition auto motor mechanic software was used to create portions of this document. Sound-alike and misspelled words, as well as other auto motor mechanic errors may be contained in the documentation. 01/09/23 [id number] <Electronically signed by Nisha Magallon DO> Cosigner Signature (if applicable): CC: ~ Signed [facility] Work Phone: Reason for referral (narrative)* Diagnostic Procedure Only (Routine) - Pending Review Specialty Diagnoses / Procedures Referred By Cyrus castillo Referred To Contact [facility] Diagnoses Encounter for screening mammogram for breast cancer Procedures KALI SCREENING SCREENING MAMMOGRAPHY BI 2-VIEW BREAST INC CAD Jalyn Smith MD [address] [place] [address] [facility] [address] [place] [id number] Referral ID Status Reason Start Date Expiration Date Visits Requested Visits Authorized [id number] Pending Review Auto-Generat ed Referral 08/06/2022 09/05/2023 1 1 [facility] for referral (narrative)* Outpatient Procedure (Routine) - Pending Review Specialty Diagnoses / Procedures Referred By Cyrus castillo Ref[facility] Diagnoses Hypoxemia Procedures OXIMETRY WITH AMBULATION NONINVASIVE EAR/PULSE OXIMETRY Zackery Miles MD [address] [place] [address] Respiratory [place] [address] [place] [id number] Referral ID Status Reason Start Date Expiration Date Visits Requested Visits Authorized [id number] Pending Review Auto-Generat ed Referral 09/10/2023 10/09/2024 1 1 [facility]No reason for referral [facility] Phone: Reason for visit Narrative* Consult, Test, Treat (Routine) - Closed Specialty Diagnoses / Procedures Referred By Contac t Referred To Contact Gastroenterology Diagnoses Anemia, unspecified type History of rectal bleeding Procedures CONSULT TO GASTROENTEROLOGY OFFICE/OUTPATIENT [facility] 60 MINUTES Jalyn Smith MD [address] [place] [address] Phone: tel: fax: Referral ID Status Reason Start Date Expiration Date V isits Requested Visits Authorized [id number] Closed PCP Requested Referral 03/11/2024 03/11/2025 1 1 [facility] Summary Purpose Family History No Family History Records Found Relationship Condition Age at Onset Recorded Date/T rebel mother Malignant neoplasm Unknown father Chronic obstructive pulmonary disease Unk nown Malignant neoplasm Unknown son Cardiac disease Unknown Advance Directives No Advanced Directives Records FoundDocuments on File Type Date Recorded Patient Electronic Warfare Specialist Expl anation Advance Directive(s) 12/22/2018 11:34 PM Advance Directive Response Recorded Date/ Time Name of Medical Power of Molder Punch Glenna Mckenzie July 25, 2021 2:08am Name of Medical Power of Molder Punch two daughters July 26, 2021 4:36pm Living Will Yes August 30, 2021 12:44pm Power of Molder Punch Yes August 30 12:44pm Advance Directive Response Recorded Date/ Time Living Will Yes August 30, 2021 12:44pm Power of Molder Punch Yes August 30 12:44pm Advance Directive Response Recorded Date/ Time Living Will Yes August 30, 2021 11:44am Power of Molder Punch Yes August 30 11:44am Advance Directive Response Recorded Date/ Time Name of Medical Power of Molder Punch Karson Mcdermott December 10, 2022 5:53pm Living Will Yes December 10, 2022 5 :53pm Power of Molder Punch Yes December 10, 2022 5:53pm Advance Directive Response Recorded Date/ Time Name of Medical Power of Molder Punch karson retana. brandin mckenzie December 10, 2022 11:13pm Living Will Yes December 10, 2022 1 1:13pm Power of Molder Punch Yes December 10, 2022 11:13pm Advance Directive Response Recorded Date/ Time Name of Medical Power of Molder Punch Rin Correia, daughter December 16, 2022 4:47pm Living Will Yes December 16, 2022 4:47pm Power of Molder Punch Yes December 16 4:47pm Name of Medical Power of Molder Punch karson retana. lonny mckenzie December 10, 2022 11:13pm Advance Directive Response Recorded Date/ Time Living Will Yes August 28, 2023 2:28pm Power of Molder Punch Yes August 27 2:28pm Name of Medical Power of Molder Punch ? August 28, 2023 2:28pm Advance Directive Response Recorded Date/ Time Living Will No September 04, 2024 7:50am Do you have a Healthcare Power of Molder Punch? No September 04, 2024 7:50am Chief Complaint and Reason for Visit Chief Complaint debility debility DEBILITY DEBILITY DEBILITY lac to left calf DIABETES TYPE 2 DIABETES TYPE 2 Reason for Visit Debility Diabetes mellitus Gastroesophageal reflux disease Left knee DJD Osteoarthritis Restless leg syndrome Right knee DJD Chronic obstructive pulmonary disease Hypertension Acute on chronic diastolic congestive heart failure Muscle spasm Debility Diabetes mellitus Gastroesophageal reflux disease Left knee DJD Osteoarthritis Restless leg syndrome Right knee DJD Venous stasis ulcer of left lower leg with edema of left lower leg Chronic obstructive pulmonary disease Essential hypertension Hypertension Chief Complaint debility debility DEBILITY DEBILITY DEBILITY lac to left calf DIABETES TYPE 2 DIABETES TYPE 2 DIABETES TYPE 2 Reason for Visit Debility Diabetes mellitus Gastroesophageal reflux disease Left knee DJD Osteoarthritis Restless leg syndrome Right knee DJD Chronic obstructive pulmonary disease Hypertension Acute on chronic diastolic congestive heart failure Muscle spasm Debility Diabetes mellitus Gastroesophageal reflux disease Left knee DJD Osteoarthritis Restless leg syndrome Right knee DJD Venous stasis ulcer of left lower leg with edema of left lower leg Chronic obstructive pulmonary disease Essential hypertension Hypertension Debility Diabetes mellitus Gastroesophageal reflux disease Left knee DJD Osteoarthritis Restless leg syndrome Right knee DJD Venous stasis ulcer of left lower leg with edema of left lower leg Chronic obstructive pulmonary disease Essential hypertension Hypertension Chief Complaint DIABETES TYPE 2 DIABETES TYPE 2 DIABETES TYPE 2 DIABETES TYPE 2 DIABETES TYPE 2 Reason for Visit Debility Diabetes mellitus Gastroesophageal reflux disease Left knee DJD Osteoarthritis Restless leg syndrome Right knee DJD Venous stasis ulcer of left lower leg with edema of left lower leg Chronic obstructive pulmonary disease Essential hypertension Hypertension Debility Diabetes mellitus Gastroesophageal reflux disease Left knee DJD Osteoarthritis Restless leg syndrome Right knee DJD Venous stasis ulcer of left lower leg with edema of left lower leg Chronic obstructive pulmonary disease Essential hypertension Hypertension Debility Diabetes mellitus Venous stasis ulcer of left lower leg with edema of left lower leg Chronic obstructive pulmonary disease Essential hypertension Hypertension Debility Diabetes mellitus Venous stasis ulcer of left lower leg with edema of left lower leg Chronic obstructive pulmonary disease Essential hypertension Hypertension Chief Complaint DIABETES TYPE 2 DIABETES TYPE 2 DIABETES TYPE 2 DIABETES TYPE 2 Reason for Visit Debility Diabetes mellitus Gastroesophageal reflux disease Left knee DJD Osteoarthritis Restless leg syndrome Right knee DJD Venous stasis ulcer of left lower leg with edema of left lower leg Chronic obstructive pulmonary disease Essential hypertension Hypertension Debility Diabetes mellitus Venous stasis ulcer of left lower leg with edema of left lower leg Chronic obstructive pulmonary disease Essential hypertension Hypertension Debility Diabetes mellitus Venous stasis ulcer of left lower leg with edema of left lower leg Chronic obstructive pulmonary disease Essential hypertension Hypertension Debility Diabetes mellitus Venous stasis ulcer of left lower leg with edema of left lower leg Chronic obstructive pulmonary disease Essential hypertension Hypertension Chief Complaint DIABETES TYPE 2 DIABETES TYPE 2 DIABETES TYPE 2 DIABETES TYPE 2 DIABETES TYPE 2 Reason for Visit Debility Diabetes mellitus Gastroesophageal reflux disease Left knee DJD Osteoarthritis Restless leg syndrome Right knee DJD Venous stasis ulcer of left lower leg with edema of left lower leg Chronic obstructive pulmonary disease Essential hypertension Hypertension Debility Diabetes mellitus Venous stasis ulcer of left lower leg with edema of left lower leg Chronic obstructive pulmonary disease Essential hypertension Hypertension Debility Diabetes mellitus Venous stasis ulcer of left lower leg with edema of left lower leg Chronic obstructive pulmonary disease Essential hypertension Hypertension Debility Diabetes mellitus Venous stasis ulcer of left lower leg with edema of left lower leg Chronic obstructive pulmonary disease Essential hypertension Hypertension Debility Diabetes mellitus Venous stasis ulcer of left lower leg with edema of left lower leg Chronic obstructive pulmonary disease Essential hypertension Hypertension Chief Complaint wound Reason for Visit Diabetes mellitus Nonhealing ulcer of left lower extremity with fat layer exposed Nonhealing ulcer of right lower extremity with fat layer exposed Supplemental oxygen dependent Venous stasis ulcer of left lower leg with edema of left lower leg 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 Chronic obstructive pulmonary disease Hypertension Chief Complaint wound wound Reason for Visit Diabetes mellitus Nonhealing ulcer of left lower extremity with fat layer exposed Nonhealing ulcer of right lower extremity with fat layer exposed Supplemental oxygen dependent Venous stasis ulcer of left lower leg with edema of left lower leg 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 Chronic obstructive pulmonary disease Hypertension Diabetes mellitus Nonhealing ulcer of left lower extremity with fat layer exposed Nonhealing ulcer of right lower extremity with fat layer exposed Supplemental oxygen dependent Venous stasis ulcer of left lower leg with edema of left lower leg 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 Chronic obstructive pulmonary disease Hypertension Chief Complaint wound wound wound Reason for Visit Diabetes mellitus Nonhealing ulcer of left lower extremity with fat layer exposed Nonhealing ulcer of right lower extremity with fat layer exposed Supplemental oxygen dependent Venous stasis ulcer of left lower leg with edema of left lower leg 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 Chronic obstructive pulmonary disease Hypertension Diabetes mellitus Nonhealing ulcer of left lower extremity with fat layer exposed Nonhealing ulcer of right lower extremity with fat layer exposed Supplemental oxygen dependent Venous stasis ulcer of left lower leg with edema of left lower leg 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 Chronic obstructive pulmonary disease Hypertension Diabetes mellitus Nonhealing ulcer of left lower extremity with fat layer exposed Nonhealing ulcer of right lower extremity with fat layer exposed Supplemental oxygen dependent Venous stasis ulcer of left lower leg with edema of left lower leg 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 Chronic obstructive pulmonary disease Hypertension Chief Complaint wound wound wound wound Reason for Visit Diabetes mellitus Nonhealing ulcer of left lower extremity with fat layer exposed Nonhealing ulcer of right lower extremity with fat layer exposed Supplemental oxygen dependent Venous stasis ulcer of left lower leg with edema of left lower leg 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 Chronic obstructive pulmonary disease Hypertension Diabetes mellitus Nonhealing ulcer of left lower extremity with fat layer exposed Nonhealing ulcer of right lower extremity with fat layer exposed Supplemental oxygen dependent Venous stasis ulcer of left lower leg with edema of left lower leg 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 Chronic obstructive pulmonary disease Hypertension Diabetes mellitus Nonhealing ulcer of left lower extremity with fat layer exposed Nonhealing ulcer of right lower extremity with fat layer exposed Supplemental oxygen dependent Venous stasis ulcer of left lower leg with edema of left lower leg 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 Chronic obstructive pulmonary disease Hypertension Diabetes mellitus Nonhealing ulcer of left lower extremity with fat layer exposed Nonhealing ulcer of right lower extremity with fat layer exposed Supplemental oxygen dependent Venous stasis ulcer of left lower leg with edema of left lower leg 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 Chronic obstructive pulmonary disease Hypertension Chief Complaint wound wound wound wound GENERALIZED WEAKNESS Reason for Visit Diabetes mellitus Nonhealing ulcer of left lower extremity with fat layer exposed Nonhealing ulcer of right lower extremity with fat layer exposed Supplemental oxygen dependent Venous stasis ulcer of left lower leg with edema of left lower leg 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 Chronic obstructive pulmonary disease Hypertension Diabetes mellitus Nonhealing ulcer of left lower extremity with fat layer exposed Nonhealing ulcer of right lower extremity with fat layer exposed Supplemental oxygen dependent Venous stasis ulcer of left lower leg with edema of left lower leg 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 Chronic obstructive pulmonary disease Hypertension Diabetes mellitus Nonhealing ulcer of left lower extremity with fat layer exposed Nonhealing ulcer of right lower extremity with fat layer exposed Supplemental oxygen dependent Venous stasis ulcer of left lower leg with edema of left lower leg 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 Chronic obstructive pulmonary disease Hypertension Diabetes mellitus Nonhealing ulcer of left lower extremity with fat layer exposed Nonhealing ulcer of right lower extremity with fat layer exposed Supplemental oxygen dependent Venous stasis ulcer of left lower leg with edema of left lower leg 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 Chronic obstructive pulmonary disease Hypertension CATHI (acute kidney injury) Anemia Diabetes mellitus Falls Weakness Chronic obstructive pulmonary disease Hypertension Chief Complaint wound wound wound wound GENERALIZED WEAKNESS GENERALIZED WEAKNESS GENERALIZED WEAKNESS GENERALIZED WEAKNESS GENERALIZED WEAKNESS GENERALIZED WEAKNESS GENERALIZED WEAKNESS Reason for Visit Diabetes mellitus Nonhealing ulcer of left lower extremity with fat layer exposed Nonhealing ulcer of right lower extremity with fat layer exposed Supplemental oxygen dependent Venous stasis ulcer of left lower leg with edema of left lower leg 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 Chronic obstructive pulmonary disease Hypertension Diabetes mellitus Nonhealing ulcer of left lower extremity with fat layer exposed Nonhealing ulcer of right lower extremity with fat layer exposed Supplemental oxygen dependent Venous stasis ulcer of left lower leg with edema of left lower leg 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 Chronic obstructive pulmonary disease Hypertension Diabetes mellitus Nonhealing ulcer of left lower extremity with fat layer exposed Nonhealing ulcer of right lower extremity with fat layer exposed Supplemental oxygen dependent Venous stasis ulcer of left lower leg with edema of left lower leg 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 Chronic obstructive pulmonary disease Hypertension Diabetes mellitus Nonhealing ulcer of left lower extremity with fat layer exposed Nonhealing ulcer of right lower extremity with fat layer exposed Supplemental oxygen dependent Venous stasis ulcer of left lower leg with edema of left lower leg 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 Chronic obstructive pulmonary disease Hypertension CATHI (acute kidney injury) Anemia Diabetes mellitus Falls Weakness Chronic obstructive pulmonary disease Hypertension Chief Complaint wound wound wound wound GENERALIZED WEAKNESS GENERALIZED WEAKNESS GENERALIZED WEAKNESS GENERALIZED WEAKNESS GENERALIZED WEAKNESS GENERALIZED WEAKNESS GENERALIZED WEAKNESS GENERALIZED WEAKNESS Reason for Visit Diabetes mellitus Nonhealing ulcer of left lower extremity with fat layer exposed Nonhealing ulcer of right lower extremity with fat layer exposed Supplemental oxygen dependent Venous stasis ulcer of left lower leg with edema of left lower leg 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 Chronic obstructive pulmonary disease Hypertension Diabetes mellitus Nonhealing ulcer of left lower extremity with fat layer exposed Nonhealing ulcer of right lower extremity with fat layer exposed Supplemental oxygen dependent Venous stasis ulcer of left lower leg with edema of left lower leg 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 Chronic obstructive pulmonary disease Hypertension Diabetes mellitus Nonhealing ulcer of left lower extremity with fat layer exposed Nonhealing ulcer of right lower extremity with fat layer exposed Supplemental oxygen dependent Venous stasis ulcer of left lower leg with edema of left lower leg 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 Chronic obstructive pulmonary disease Hypertension Diabetes mellitus Nonhealing ulcer of left lower extremity with fat layer exposed Nonhealing ulcer of right lower extremity with fat layer exposed Supplemental oxygen dependent Venous stasis ulcer of left lower leg with edema of left lower leg 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 Chronic obstructive pulmonary disease Hypertension Anemia Diabetes mellitus Falls Chronic obstructive pulmonary disease Hypertension CATHI (acute kidney injury) Blood in stool Debility Depression Diabetes mellitus Diabetic polyneuropathy Osteoarthritis Overactive bladder Restless leg syndrome Urinary tract infection Chronic obstructive pulmonary disease Hypertension CATHI (acute kidney injury) Chief Complaint wound wound wound GENERALIZED WEAKNESS GENERALIZED WEAKNESS GENERALIZED WEAKNESS GENERALIZED WEAKNESS GENERALIZED WEAKNESS GENERALIZED WEAKNESS GENERALIZED WEAKNESS GENERALIZED WEAKNESS wound Reason for Visit Diabetes mellitus Nonhealing ulcer of left lower extremity with fat layer exposed Nonhealing ulcer of right lower extremity with fat layer exposed Supplemental oxygen dependent Venous stasis ulcer of left lower leg with edema of left lower leg 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 Chronic obstructive pulmonary disease Hypertension Diabetes mellitus Nonhealing ulcer of left lower extremity with fat layer exposed Nonhealing ulcer of right lower extremity with fat layer exposed Supplemental oxygen dependent Venous stasis ulcer of left lower leg with edema of left lower leg 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 Chronic obstructive pulmonary disease Hypertension Diabetes mellitus Nonhealing ulcer of left lower extremity with fat layer exposed Nonhealing ulcer of right lower extremity with fat layer exposed Supplemental oxygen dependent Venous stasis ulcer of left lower leg with edema of left lower leg 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 Chronic obstructive pulmonary disease Hypertension Anemia Diabetes mellitus Falls Chronic obstructive pulmonary disease Hypertension CATHI (acute kidney injury) Blood in stool Debility Depression Diabetes mellitus Diabetic polyneuropathy Osteoarthritis Overactive bladder Restless leg syndrome Urinary tract infection Chronic obstructive pulmonary disease Hypertension CATHI (acute kidney injury) Diabetes mellitus Nonhealing ulcer of left lower extremity with fat layer exposed Nonhealing ulcer of right lower extremity with fat layer exposed Supplemental oxygen dependent Venous stasis ulcer of left lower leg with edema of left lower leg 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 Chronic obstructive pulmonary disease Hypertension Chief Complaint wound wound wound GENERALIZED WEAKNESS GENERALIZED WEAKNESS GENERALIZED WEAKNESS GENERALIZED WEAKNESS GENERALIZED WEAKNESS GENERALIZED WEAKNESS GENERALIZED WEAKNESS GENERALIZED WEAKNESS CP wound Radiculopathy, lumbar region Reason for Visit Diabetes mellitus Nonhealing ulcer of left lower extremity with fat layer exposed Nonhealing ulcer of right lower extremity with fat layer exposed Supplemental oxygen dependent Venous stasis ulcer of left lower leg with edema of left lower leg 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 Chronic obstructive pulmonary disease Hypertension Diabetes mellitus Nonhealing ulcer of left lower extremity with fat layer exposed Nonhealing ulcer of right lower extremity with fat layer exposed Supplemental oxygen dependent Venous stasis ulcer of left lower leg with edema of left lower leg 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 Chronic obstructive pulmonary disease Hypertension Diabetes mellitus Nonhealing ulcer of left lower extremity with fat layer exposed Nonhealing ulcer of right lower extremity with fat layer exposed Supplemental oxygen dependent Venous stasis ulcer of left lower leg with edema of left lower leg 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 Chronic obstructive pulmonary disease Hypertension Anemia Diabetes mellitus Falls Chronic obstructive pulmonary disease Hypertension CATHI (acute kidney injury) Debility Depression Diabetes mellitus Diabetic polyneuropathy Osteoarthritis Overactive bladder Restless leg syndrome Chronic obstructive pulmonary disease Hypertension CATHI (acute kidney injury) Blood in stool Urinary tract infection Diabetes mellitus Nonhealing ulcer of left lower extremity with fat layer exposed Nonhealing ulcer of right lower extremity with fat layer exposed Supplemental oxygen dependent Venous stasis ulcer of left lower leg with edema of left lower leg 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 Chronic obstructive pulmonary disease Hypertension Chief Complaint wound GENERALIZED WEAKNESS GENERALIZED WEAKNESS GENERALIZED WEAKNESS GENERALIZED WEAKNESS GENERALIZED WEAKNESS GENERALIZED WEAKNESS GENERALIZED WEAKNESS GENERALIZED WEAKNESS CP wound Radiculopathy, lumbar region Reason for Visit Diabetes mellitus Nonhealing ulcer of left lower extremity with fat layer exposed Nonhealing ulcer of right lower extremity with fat layer exposed Supplemental oxygen dependent Venous stasis ulcer of left lower leg with edema of left lower leg 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 Chronic obstructive pulmonary disease Hypertension Anemia Diabetes mellitus Falls Chronic obstructive pulmonary disease Hypertension CATHI (acute kidney injury) Debility Depression Diabetes mellitus Diabetic polyneuropathy Osteoarthritis Overactive bladder Restless leg syndrome Chronic obstructive pulmonary disease Hypertension CATHI (acute kidney injury) Blood in stool Urinary tract infection Diabetes mellitus Nonhealing ulcer of left lower extremity with fat layer exposed Nonhealing ulcer of right lower extremity with fat layer exposed Supplemental oxygen dependent Venous stasis ulcer of left lower leg with edema of left lower leg 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 Chronic obstructive pulmonary disease Hypertension Chief Complaint abd pain Chief Complaint Admit Date Opioid dependence, uncomplicated r 2024 1:08pm Chief Complaint Admit Date Opioid dependence, uncomplicated r 2024 1:08pm abd pain September 04, 2024 7:0 3am Reason for Referral Specialty Diagnoses / Procedures Referred By Contac t Referred To Contact Vascular Surgery Diagnoses Dissection of descending aorta (HCC) Thoracic aortic aneurysm without rupture, unspecified part Procedures CONSULT TO VASCULAR SURGERY OFFICE/OUTPATIENT [facility] 60-74 MINUTES Jalyn Smith MD [address] [place] [address] Referral ID Status Reason Start Date Expiration Date Visits Requested Visits Authorized [id number] Authorized PCP Requested Referral 2 03/20/2023 1 1 Specialty Diagnoses / Procedures Referred By Contac t Referred To Contact Pulmonary and Critical Care Medicine Diagnoses Centrilobular emphysema (HCC) Procedures CONSULT TO PULM/CRITICAL CARE OFFICE/OUTPATIENT [facility] 60-74 MINUTES Jalyn Smith MD [address] [place] [address] Referral ID Status Reason Start Date Expiration Date Visits Requested Visits Authorized [id number] Authorized PCP Requested Referral 2 03/20/2023 1 1 Specialty Diagnoses / Procedures Referred By Contac t Referred To Contact CT IMAGING Diagnoses 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, abdominal (HCC) Procedures CTA CHEST (NONGATED) W IVCON CT ANGIOGRAPHY CHEST W/CONTRAST/NONCONTRAST Herminia Carrera, [employer].REFINERY OPERATOR HELPER 1 [facility] [address] [place] [address] Ct Imaging Referral ID Status Reason Start Date Expiration Date Visits Requested Visits Authorized [id number] Pending Review Auto-Generat ed Referral 2 04/19/2023 1 1 Specialty Diagnoses / Procedures Referred By Contac t Referred To Contact CT IMAGING Diagnoses 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, abdominal (HCC) Procedures CTA ABD/PEL W IVCON CT ANGIO ABD&PLVIS CNTRST MTRL W/WO CNTRST Hermniia Sanz, [employer] SPECIALTY.REFINERY OPERATOR HELPER 1 [facility] [address] [place] [address] [address] [address] Referral ID Status Reason Start Date Expiration Date Visits Requested Visits Authorized [id number] Pending Review Auto-Generat ed Referral 2 04/19/2023 1 1 Specialty Diagnoses / Procedures Referred By Contac t Referred To Contact Pain Management Diagnoses Osteoarthritis of both knees, unspecified osteoarthritis type DDD (degenerative disc disease), lumbar Procedures CONSULT TO PAIN MGT OFFICE/OUTPATIENT [facility] 60-74 MINUTES Jalyn Smith MD [address] [place] [address] Referral ID Status Reason Start Date Expiration Date Visits Requested Visits Authorized [id number] Authorized PCP Requested Referral 01/12/2023 01/12/2024 1 1 Specialty Diagnoses / Procedures Referred By Contac t Referred To Contact CT IMAGING Diagnoses 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, abdominal (HCC) Procedures CTA ABD/PEL W IVCON CT ANGIO ABD&PLVIS CNTRST MTRL W/WO CNTRST Herminia Sanz, [employer] SPECIALTY.REFINERY OPERATOR HELPER 1 [employer] [facility] [address] [place] [address] [place] [address] Referral ID Status Reason Start Date Expiration Date V isits Requested Visits Authorized [id number] Closed Auto-Generat ed Referral Patient Cleared - Admin/Chairm an/Director advise to proceed or did not respond 04/18/2022 05/18/2022 1 1 Specialty Diagnoses / Procedures Referred By Contac t Referred To Contact CT IMAGING Diagnoses 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, abdominal (HCC) Procedures CTA CHEST (NONGATED) W IVCON CT ANGIOGRAPHY CHEST W/CONTRAST/NONCONTRAST Herminia Carrera, [employer] SPECIALTY.REFINERY OPERATOR HELPER [address] [facility] [address] [place] [address] [place] [address] Referral ID Status Reason Start Date Expiration Date V isits Requested Visits Authorized [id number] Closed Auto-Generat ed Referral Patient Cleared - Admin/Chairm an/Director advise to proceed or did not respond 04/18/2022 05/18/2022 1 1 Specialty Diagnoses / Procedures Referred By Contac t Referred To Contact Vascular Surgery Diagnoses Thoracic aortic aneurysm without rupture, unspecified part (HCC) Dissection of descending aorta (HCC) Abdominal aortic aneurysm (AAA) without rupture, unspecified part (HCC) Procedures CONSULT TO VASCULAR SURGERY OFFICE/OUTPATIENT [facility] 60 MINUTES Jalyn Smith MD [address] [place] [address] Referral ID Status Reason Start Date Expiration Date Visits Requested Visits Authorized [id number] Authorized PCP Requested Referral 09/09/2023 09/08/2024 1 1 Specialty Diagnoses / Procedures Referred By Contac t Referred To Contact CT IMAGING Diagnoses Abdominal aortic aneurysm (AAA) without rupture, unspecified part (HCC) Dissection of thoracoabdominal aorta (HCC) Procedures CTA ABD/PEL W IVCON CT ANGIO ABD&PLVIS CNTRST MTRL W/WO CNTRST Yaniv Carvajal MD [address] [place] [address] [address] [place] [address] Referral ID Status Reason Start Date Expiration Date Visits Requested Visits Authorized [id number] Pending Review Auto-Generat ed Referral 09/21/2023 10/20/2024 1 1 Specialty Diagnoses / Procedures Referred By Contac t Referred To Contact CT IMAGING Diagnoses Thoracic aortic aneurysm without rupture, unspecified part (HCC) Dissection of descending aorta (HCC) Procedures CTA CHEST (NONGATED) WO/W IVCON CT ANGIOGRAPHY CHEST W/CONTRAST/NONCONTRAST Yaniv Todd MD [address] [place] [address] Ct Imaging [id number] Referral ID Status Reason Start Date Expiration Date Visits Requested Visits Authorized [id number] Pending Review Auto-Generat ed Referral 09/21/2023 10/20/2024 1 1 Specialty Diagnoses / Procedures Referred By Contac t Referred To Contact CT IMAGING Diagnoses 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) Thoracic aortic aneurysm without rupture, unspecified part (HCC) Dissection of thoracoabdominal aorta (HCC) Procedures CTA ABD/PEL W IVCON CT ANGIO ABD&PLVIS CNTRST MTRL W/WO CNTRST Yaniv Carvajal MD [address] [place] [address] Ct Imaging [id number] Referral ID Status Reason Start Date Expiration Date Visits Requested Visits Authorized [id number] Pending Review Auto-Generat ed Referral 11/04/2024 12/04/2024 1 1 Specialty Diagnoses / Procedures Referred By Contac t Referred To Contact CT IMAGING Diagnoses Chest pain, unspecified type Procedures CTA CHEST (NONGATED) W IVCON CT ANGIOGRAPHY CHEST W/CONTRAST/NONCONTRAST Yaniv Todd MD [address] [place] [address] Ct Imaging [id number] Referral ID Status Reason Start Date Expiration Date Visits Requested Visits Authorized [id number] Pending Review Auto-Generat ed Referral 11/04/2024 12/04/2024 1 1 Specialty Diagnoses / Procedures Referred By Contac t Referred To Contact Gastroenterology Diagnoses Anemia, unspecified type History of rectal bleeding Procedures CONSULT TO GASTROENTEROLOGY OFFICE/OUTPATIENT [facility] 60 MINUTES Jalyn Smith MD [address] [place] [id number] Referral ID Status Reason Start Date Expiration Date Visits Requested Visits Authorized [id number] Authorized PCP Requested Referral 03/11/2024 03/11/2025 1 1 Additional Source Comments INFORMATION SOURCE (unrecogn ized section and content) DATE CREATED AUTHOR 07/05/2019 [facility] DATE CREATED AUTHOR AUTHOR'S ORGANIZ ATION 10/13/[address] [facility] DATE CREATED AUTHOR AUTHOR'S ORGANIZ ATION 09/25/2023 [facility] DATE CREATED AUTHOR AUTHOR'S ORGANIZ ATION 09/29/2024 [facility] DATE CREATED AUTHOR AUTHOR'S ORGANIZ ATION 12/03/2024 [facility] DATE CREATED AUTHOR AUTHOR'S ORGANIZ ATION 03/23/2025 [facility] Source Comments (unrecognize d section and content) In the event this informatio n is protected by the Federal Confidentiality of Alcohol and Drug Abuse Patient Records regulations: The Federal rules restrict any use of the information to criminally investigate or prosecute any alcohol or drug abuse patient.[facility] the event this information is protected by the Federal Confidentiality of Alcohol and Drug Abuse Patient Records regulations: The Federal rules restrict any use of the information to criminally investigate or prosecute any alcohol or drug abuse patient.[facility] the event this information is protected by the Federal Confidentiality of Alcohol and Drug Abuse Patient Records regulations: The Federal rules restrict any use of the information to criminally investigate or prosecute any alcohol or drug abuse patient.[facility] the event this information is protected by the Federal Confidentiality of Alcohol and Drug Abuse Patient Records regulations: The Federal rules restrict any use of the information to criminally investigate or prosecute any alcohol or drug abuse patient.[facility] the event this information is protected by the Federal Confidentiality of Alcohol and Drug Abuse Patient Records regulations: The Federal rules restrict any use of the information to criminally investigate or prosecute any alcohol or drug abuse patient.[facility] the event this information is protected by the Federal Confidentiality of Alcohol and Drug Abuse Patient Records regulations: The Federal rules restrict any use of the information to criminally investigate or prosecute any alcohol or drug abuse patient.[facility] the event this information is protected by the Federal Confidentiality of Alcohol and Drug Abuse Patient Records regulations: The Federal rules restrict any use of the information to criminally investigate or prosecute any alcohol or drug abuse patient.[facility] the event this information is protected by the Federal Confidentiality of Alcohol and Drug Abuse Patient Records regulations: The Federal rules restrict any use of the information to criminally investigate or prosecute any alcohol or drug abuse patient.[facility] the event this information is protected by the Federal Confidentiality of Alcohol and Drug Abuse Patient Records regulations: The Federal rules restrict any use of the information to criminally investigate or prosecute any alcohol or drug abuse patient.[facility] the event this information is protected by the Federal Confidentiality of Alcohol and Drug Abuse Patient Records regulations: The Federal rules restrict any use of the information to criminally investigate or prosecute any alcohol or drug abuse patient.[facility] the event this information is protected by the Federal Confidentiality of Alcohol and Drug Abuse Patient Records regulations: The Federal rules restrict any use of the information to criminally investigate or prosecute any alcohol or drug abuse patient.[facility] System[facility] the event this information is protected by the Federal Confidentiality of Alcohol and Drug Abuse Patient Records regulations: The Federal rules restrict any use of the information to criminally investigate or prosecute any alcohol or drug abuse patient.[facility] System[facility] the event this information is protected by the Federal Confidentiality of Alcohol and Drug Abuse Patient Records regulations: The Federal rules restrict any use of the information to criminally investigate or prosecute any alcohol or drug abuse patient.[facility] System[facility] the event this information is protected by the Federal Confidentiality of Alcohol and Drug Abuse Patient Records regulations: The Federal rules restrict any use of the information to criminally investigate or prosecute any alcohol or drug abuse patient.[facility] System[facility] the event this information is protected by the Federal Confidentiality of Alcohol and Drug Abuse Patient Records regulations: The Federal rules restrict any use of the information to criminally investigate or prosecute any alcohol or drug abuse patient.[facility] System[facility] the event this information is protected by the Federal Confidentiality of Alcohol and Drug Abuse Patient Records regulations: The Federal rules restrict any use of the information to criminally investigate or prosecute any alcohol or drug abuse patient.[facility] System[facility] the event this information is protected by the Federal Confidentiality of Alcohol and Drug Abuse Patient Records regulations: The Federal rules restrict any use of the information to criminally investigate or prosecute any alcohol or drug abuse patient.[facility] System[facility] the event this information is protected by the Federal Confidentiality of Alcohol and Drug Abuse Patient Records regulations: The Federal rules restrict any use of the information to criminally investigate or prosecute any alcohol or drug abuse patient.[facility] System[facility] the event this information is protected by the Federal Confidentiality of Alcohol and Drug Abuse Patient Records regulations: The Federal rules restrict any use of the information to criminally investigate or prosecute any alcohol or drug abuse patient.[facility] System[facility] the event this information is protected by the Federal Confidentiality of Alcohol and Drug Abuse Patient Records regulations: The Federal rules restrict any use of the information to criminally investigate or prosecute any alcohol or drug abuse patient.[facility] System[facility] the event this information is protected by the Federal Confidentiality of Alcohol and Drug Abuse Patient Records regulations: The Federal rules restrict any use of the information to criminally investigate or prosecute any alcohol or drug abuse patient.[facility] System[facility] the event this information is protected by the Federal Confidentiality of Alcohol and Drug Abuse Patient Records regulations: The Federal rules restrict any use of the information to criminally investigate or prosecute any alcohol or drug abuse patient.[facility] SystemIn the event this information is protected by the Federal Confidentiality of Alcohol and Drug Abuse Patient Records regulations: The Federal rules restrict any use of the information to criminally investigate or prosecute any alcohol or drug abuse patient.[facility] the event this information is protected by the Federal Confidentiality of Alcohol and Drug Abuse Patient Records regulations: The Federal rules restrict any use of the information to criminally investigate or prosecute any alcohol or drug abuse patient.[facility]In the event this information is protected by the Federal Confidentiality of Alcohol and Drug Abuse Patient Records regulations: The Federal rules restrict any use of the information to criminally investigate or prosecute any alcohol or drug abuse patient.[facility]In the event this information is protected by the Federal Confidentiality of Alcohol and Drug Abuse Patient Records regulations: The Federal rules restrict any use of the information to criminally investigate or prosecute any alcohol or drug abuse patient.[facility] SystemIn the event this information is protected by the Federal Confidentiality of Alcohol and Drug Abuse Patient Records regulations: The Federal rules restrict any use of the information to criminally investigate or prosecute any alcohol or drug abuse patient.[facility]In the event this information is protected by the Federal Confidentiality of Alcohol and Drug Abuse Patient Records regulations: The Federal rules restrict any use of the information to criminally investigate or prosecute any alcohol or drug abuse patient.[facility] SystemIn the event this information is protected by the Federal Confidentiality of Alcohol and Drug Abuse Patient Records regulations: The Federal rules restrict any use of the information to criminally investigate or prosecute any alcohol or drug abuse patient.[facility] SystemIn the event this information is protected by the Federal Confidentiality of Alcohol and Drug Abuse Patient Records regulations: The Federal rules restrict any use of the information to criminally investigate or prosecute any alcohol or drug abuse patient.[facility]In the event this information is protected by the Federal Confidentiality of Alcohol and Drug Abuse Patient Records regulations: The Federal rules restrict any use of the information to criminally investigate or prosecute any alcohol or drug abuse patient.[facility] SystemIn the event this information is protected by the Federal Confidentiality of Alcohol and Drug Abuse Patient Records regulations: The Federal rules restrict any use of the information to criminally investigate or prosecute any alcohol or drug abuse patient.[facility]In the event this information is protected by the Federal Confidentiality of Alcohol and Drug Abuse Patient Records regulations: The Federal rules restrict any use of the information to criminally investigate or prosecute any alcohol or drug abuse patient.[facility] SystemIn the event this information is protected by the Federal Confidentiality of Alcohol and Drug Abuse Patient Records regulations: The Federal rules restrict any use of the information to criminally investigate or prosecute any alcohol or drug abuse patient.[facility] the event this information is protected by the Federal Confidentiality of Alcohol and Drug Abuse Patient Records regulations: The Federal rules restrict any use of the information to criminally investigate or prosecute any alcohol or drug abuse patient.[facility] SystemIn the event this information is protected by the Federal Confidentiality of Alcohol and Drug Abuse Patient Records regulations: The Federal rules restrict any use of the information to criminally investigate or prosecute any alcohol or drug abuse patient.[facility] SystemIn the event this information is protected by the Federal Confidentiality of Alcohol and Drug Abuse Patient Records regulations: The Federal rules restrict any use of the information to criminally investigate or prosecute any alcohol or drug abuse patient.[facility]In the event this information is protected by the Federal Confidentiality of Alcohol and Drug Abuse Patient Records regulations: The Federal rules restrict any use of the information to criminally investigate or prosecute any alcohol or drug abuse patient.[facility] SystemIn the event this information is protected by the Federal Confidentiality of Alcohol and Drug Abuse Patient Records regulations: The Federal rules restrict any use of the information to criminally investigate or prosecute any alcohol or drug abuse patient.[facility] SystemIn the event this information is protected by the Federal Confidentiality of Alcohol and Drug Abuse Patient Records regulations: The Federal rules restrict any use of the information to criminally investigate or prosecute any alcohol or drug abuse patient.[facility] SystemIn the event this information is protected by the Federal Confidentiality of Alcohol and Drug Abuse Patient Records regulations: The Federal rules restrict any use of the information to criminally investigate or prosecute any alcohol or drug abuse patient.[facility] SystemIn the event this information is protected by the Federal Confidentiality of Alcohol and Drug Abuse Patient Records regulations: The Federal rules restrict any use of the information to criminally investigate or prosecute any alcohol or drug abuse patient.[facility] SystemIn the event this information is protected by the Federal Confidentiality of Alcohol and Drug Abuse Patient Records regulations: The Federal rules restrict any use of the information to criminally investigate or prosecute any alcohol or drug abuse patient.[facility] SystemIn the event this information is protected by the Federal Confidentiality of Alcohol and Drug Abuse Patient Records regulations: The Federal rules restrict any use of the information to criminally investigate or prosecute any alcohol or drug abuse patient.[facility]In the event this information is protected by the Federal Confidentiality of Alcohol and Drug Abuse Patient Records regulations: The Federal rules restrict any use of the information to criminally investigate or prosecute any alcohol or drug abuse patient.[facility]In the event this information is protected by the Federal Confidentiality of Alcohol and Drug Abuse Patient Records regulations: The Federal rules restrict any use of the information to criminally investigate or prosecute any alcohol or drug abuse patient.[facility] SystemIn the event this information is protected by the Federal Confidentiality of Alcohol and Drug Abuse Patient Records regulations: The Federal rules restrict any use of the information to criminally investigate or prosecute any alcohol or drug abuse patient.[facility] SystemIn the event this information is protected by the Federal Confidentiality of Alcohol and Drug Abuse Patient Records regulations: The Federal rules restrict any use of the information to criminally investigate or prosecute any alcohol or drug abuse patient.[facility] SystemIn the event this information is protected by the Federal Confidentiality of Alcohol and Drug Abuse Patient Records regulations: The Federal rules restrict any use of the information to criminally investigate or prosecute any alcohol or drug abuse patient.[facility] SystemIn the event this information is protected by the Federal Confidentiality of Alcohol and Drug Abuse Patient Records regulations: The Federal rules restrict any use of the information to criminally investigate or prosecute any alcohol or drug abuse patient.[facility] SystemIn the event this information is protected by the Federal Confidentiality of Alcohol and Drug Abuse Patient Records regulations: The Federal rules restrict any use of the information to criminally investigate or prosecute any alcohol or drug abuse patient.[facility] SystemIn the event this information is protected by the Federal Confidentiality of Alcohol and Drug Abuse Patient Records regulations: The Federal rules restrict any use of the information to criminally investigate or prosecute any alcohol or drug abuse patient.[facility] SystemIn the event this information is protected by the Federal Confidentiality of Alcohol and Drug Abuse Patient Records regulations: The Federal rules restrict any use of the information to criminally investigate or prosecute any alcohol or drug abuse patient.[facility] SystemIn the event this information is protected by the Federal Confidentiality of Alcohol and Drug Abuse Patient Records regulations: The Federal rules restrict any use of the information to criminally investigate or prosecute any alcohol or drug abuse patient.[facility] SystemIn the event this information is protected by the Federal Confidentiality of Alcohol and Drug Abuse Patient Records regulations: The Federal rules restrict any use of the information to criminally investigate or prosecute any alcohol or drug abuse patient.[facility]In the event this information is protected by the Federal Confidentiality of Alcohol and Drug Abuse Patient Records regulations: The Federal rules restrict any use of the information to criminally investigate or prosecute any alcohol or drug abuse patient.[facility]In the event this information is protected by the Federal Confidentiality of Alcohol and Drug Abuse Patient Records regulations: The Federal rules restrict any use of the information to criminally investigate or prosecute any alcohol or drug abuse patient.[facility] SystemIn the event this information is protected by the Federal Confidentiality of Alcohol and Drug Abuse Patient Records regulations: The Federal rules restrict any use of the information to criminally investigate or prosecute any alcohol or drug abuse patient.[facility] SystemIn the event this information is protected by the Federal Confidentiality of Alcohol and Drug Abuse Patient Records regulations: The Federal rules restrict any use of the information to criminally investigate or prosecute any alcohol or drug abuse patient.[facility] SystemIn the event this information is protected by the Federal Confidentiality of Alcohol and Drug Abuse Patient Records regulations: The Federal rules restrict any use of the information to criminally investigate or prosecute any alcohol or drug abuse patient.[facility] SystemIn the event this information is protected by the Federal Confidentiality of Alcohol and Drug Abuse Patient Records regulations: The Federal rules restrict any use of the information to criminally investigate or prosecute any alcohol or drug abuse patient.[facility]In the event this information is protected by the Federal Confidentiality of Alcohol and Drug Abuse Patient Records regulations: The Federal rules restrict any use of the information to criminally investigate or prosecute any alcohol or drug abuse patient.[facility]In the event this information is protected by the Federal Confidentiality of Alcohol and Drug Abuse Patient Records regulations: The Federal rules restrict any use of the information to criminally investigate or prosecute any alcohol or drug abuse patient.[facility]In the event this information is protected by the Federal Confidentiality of Alcohol and Drug Abuse Patient Records regulations: The Federal rules restrict any use of the information to criminally investigate or prosecute any alcohol or drug abuse patient.[facility] SystemIn the event this information is protected by the Federal Confidentiality of Alcohol and Drug Abuse Patient Records regulations: The Federal rules restrict any use of the information to criminally investigate or prosecute any alcohol or drug abuse patient.[facility]In the event this information is protected by the Federal Confidentiality of Alcohol and Drug Abuse Patient Records regulations: The Federal rules restrict any use of the information to criminally investigate or prosecute any alcohol or drug abuse patient.[facility] SystemIn the event this information is protected by the Federal Confidentiality of Alcohol and Drug Abuse Patient Records regulations: The Federal rules restrict any use of the information to criminally investigate or prosecute any alcohol or drug abuse patient.[facility] SystemIn the event this information is protected by the Federal Confidentiality of Alcohol and Drug Abuse Patient Records regulations: The Federal rules restrict any use of the information to criminally investigate or prosecute any alcohol or drug abuse patient.[facility] SystemIn the event this information is protected by the Federal Confidentiality of Alcohol and Drug Abuse Patient Records regulations: The Federal rules restrict any use of the information to criminally investigate or prosecute any alcohol or drug abuse patient.[facility] SystemIn the event this information is protected by the Federal Confidentiality of Alcohol and Drug Abuse Patient Records regulations: The Federal rules restrict any use of the information to criminally investigate or prosecute any alcohol or drug abuse patient.[facility] SystemIn the event this information is protected by the Federal Confidentiality of Alcohol and Drug Abuse Patient Records regulations: The Federal rules restrict any use of the information to criminally investigate or prosecute any alcohol or drug abuse patient.[facility] SystemIn the event this information is protected by the Federal Confidentiality of Alcohol and Drug Abuse Patient Records regulations: The Federal rules restrict any use of the information to criminally investigate or prosecute any alcohol or drug abuse patient.[facility] SystemIn the event this information is protected by the Federal Confidentiality of Alcohol and Drug Abuse Patient Records regulations: The Federal rules restrict any use of the information to criminally investigate or prosecute any alcohol or drug abuse patient.[facility]In the event this information is protected by the Federal Confidentiality of Alcohol and Drug Abuse Patient Records regulations: The Federal rules restrict any use of the information to criminally investigate or prosecute any alcohol or drug abuse patient.[facility]In the event this information is protected by the Federal Confidentiality of Alcohol and Drug Abuse Patient Records regulations: The Federal rules restrict any use of the information to criminally investigate or prosecute any alcohol or drug abuse patient.[facility]In the event this information is protected by the Federal Confidentiality of Alcohol and Drug Abuse Patient Records regulations: The Federal rules restrict any use of the information to criminally investigate or prosecute any alcohol or drug abuse patient.[facility]In the event this information is protected by the Federal Confidentiality of Alcohol and Drug Abuse Patient Records regulations: The Federal rules restrict any use of the information to criminally investigate or prosecute any alcohol or drug abuse patient.[facility]In the event this information is protected by the Federal Confidentiality of Alcohol and Drug Abuse Patient Records regulations: The Federal rules restrict any use of the information to criminally investigate or prosecute any alcohol or drug abuse patient.[facility]In the event this information is protected by the Federal Confidentiality of Alcohol and Drug Abuse Patient Records regulations: The Federal rules restrict any use of the information to criminally investigate or prosecute any alcohol or drug abuse patient.[facility]In the event this information is protected by the Federal Confidentiality of Alcohol and Drug Abuse Patient Records regulations: The Federal rules restrict any use of the information to criminally investigate or prosecute any alcohol or drug abuse patient.[facility]In the event this information is protected by the Federal Confidentiality of Alcohol and Drug Abuse Patient Records regulations: The Federal rules restrict any use of the information to criminally investigate or prosecute any alcohol or drug abuse patient.[facility]In the event this information is protected by the Federal Confidentiality of Alcohol and Drug Abuse Patient Records regulations: The Federal rules restrict any use of the information to criminally investigate or prosecute any alcohol or drug abuse patient.[facility]In the event this information is protected by the Federal Confidentiality of Alcohol and Drug Abuse Patient Records regulations: The Federal rules restrict any use of the information to criminally investigate or prosecute any alcohol or drug abuse patient.[facility] SystemIn the event this information is protected by the Federal Confidentiality of Alcohol and Drug Abuse Patient Records regulations: The Federal rules restrict any use of the information to criminally investigate or prosecute any alcohol or drug abuse patient.[facility] the event this information is protected by the Federal Confidentiality of Alcohol and Drug Abuse Patient Records regulations: The Federal rules restrict any use of the information to criminally investigate or prosecute any alcohol or drug abuse patient.[facility] SystemIn the event this information is protected by the Federal Confidentiality of Alcohol and Drug Abuse Patient Records regulations: The Federal rules restrict any use of the information to criminally investigate or prosecute any alcohol or drug abuse patient.[facility]In the event this information is protected by the Federal Confidentiality of Alcohol and Drug Abuse Patient Records regulations: The Federal rules restrict any use of the information to criminally investigate or prosecute any alcohol or drug abuse patient.[facility]In the event this information is protected by the Federal Confidentiality of Alcohol and Drug Abuse Patient Records regulations: The Federal rules restrict any use of the information to criminally investigate or prosecute any alcohol or drug abuse patient.[facility]In the event this information is protected by the Federal Confidentiality of Alcohol and Drug Abuse Patient Records regulations: The Federal rules restrict any use of the information to criminally investigate or prosecute any alcohol or drug abuse patient.[facility]In the event this information is protected by the Federal Confidentiality of Alcohol and Drug Abuse Patient Records regulations: The Federal rules restrict any use of the information to criminally investigate or prosecute any alcohol or drug abuse patient.[facility]In the event this information is protected by the Federal Confidentiality of Alcohol and Drug Abuse Patient Records regulations: The Federal rules restrict any use of the information to criminally investigate or prosecute any alcohol or drug abuse patient.[facility]In the event this information is protected by the Federal Confidentiality of Alcohol and Drug Abuse Patient Records regulations: The Federal rules restrict any use of the information to criminally investigate or prosecute any alcohol or drug abuse patient.[facility]In the event this information is protected by the Federal Confidentiality of Alcohol and Drug Abuse Patient Records regulations: The Federal rules restrict any use of the information to criminally investigate or prosecute any alcohol or drug abuse patient.[facility]In the event this information is protected by the Federal Confidentiality of Alcohol and Drug Abuse Patient Records regulations: The Federal rules restrict any use of the information to criminally investigate or prosecute any alcohol or drug abuse patient.[facility]In the event this information is protected by the Federal Confidentiality of Alcohol and Drug Abuse Patient Records regulations: The Federal rules restrict any use of the information to criminally investigate or prosecute any alcohol or drug abuse patient.[facility]In the event this information is protected by the Federal Confidentiality of Alcohol and Drug Abuse Patient Records regulations: The Federal rules restrict any use of the information to criminally investigate or prosecute any alcohol or drug abuse patient.[facility]In the event this information is protected by the Federal Confidentiality of Alcohol and Drug Abuse Patient Records regulations: The Federal rules restrict any use of the information to criminally investigate or prosecute any alcohol or drug abuse patient.[facility]In the event this information is protected by the Federal Confidentiality of Alcohol and Drug Abuse Patient Records regulations: The Federal rules restrict any use of the information to criminally investigate or prosecute any alcohol or drug abuse patient.[facility]In the event this information is protected by the Federal Confidentiality of Alcohol and Drug Abuse Patient Records regulations: The Federal rules restrict any use of the information to criminally investigate or prosecute any alcohol or drug abuse patient.[facility]In the event this information is protected by the Federal Confidentiality of Alcohol and Drug Abuse Patient Records regulations: The Federal rules restrict any use of the information to criminally investigate or prosecute any alcohol or drug abuse patient.[facility]In the event this information is protected by the Federal Confidentiality of Alcohol and Drug Abuse Patient Records regulations: The Federal rules restrict any use of the information to criminally investigate or prosecute any alcohol or drug abuse patient.[facility]In the event this information is protected by the Federal Confidentiality of Alcohol and Drug Abuse Patient Records regulations: The Federal rules restrict any use of the information to criminally investigate or prosecute any alcohol or drug abuse patient.[facility]In the event this information is protected by the Federal Confidentiality of Alcohol and Drug Abuse Patient Records regulations: The Federal rules restrict any use of the information to criminally investigate or prosecute any alcohol or drug abuse patient.[facility]In the event this information is protected by the Federal Confidentiality of Alcohol and Drug Abuse Patient Records regulations: The Federal rules restrict any use of the information to criminally investigate or prosecute any alcohol or drug abuse patient.[facility]In the event this information is protected by the Federal Confidentiality of Alcohol and Drug Abuse Patient Records regulations: The Federal rules restrict any use of the information to criminally investigate or prosecute any alcohol or drug abuse patient.[facility] SystemIn the event this information is protected by the Federal Confidentiality of Alcohol and Drug Abuse Patient Records regulations: The Federal rules restrict any use of the information to criminally investigate or prosecute any alcohol or drug abuse patient.[facility] SystemIn the event this information is protected by the Federal Confidentiality of Alcohol and Drug Abuse Patient Records regulations: The Federal rules restrict any use of the information to criminally investigate or prosecute any alcohol or drug abuse patient.[facility] SystemIn the event this information is protected by the Federal Confidentiality of Alcohol and Drug Abuse Patient Records regulations: The Federal rules restrict any use of the information to criminally investigate or prosecute any alcohol or drug abuse patient.[facility] SystemIn the event this information is protected by the Federal Confidentiality of Alcohol and Drug Abuse Patient Records regulations: The Federal rules restrict any use of the information to criminally investigate or prosecute any alcohol or drug abuse patient.[facility] SystemIn the event this information is protected by the Federal Confidentiality of Alcohol and Drug Abuse Patient Records regulations: The Federal rules restrict any use of the information to criminally investigate or prosecute any alcohol or drug abuse patient.[facility] SystemIn the event this information is protected by the Federal Confidentiality of Alcohol and Drug Abuse Patient Records regulations: The Federal rules restrict any use of the information to criminally investigate or prosecute any alcohol or drug abuse patient.[facility] SystemIn the event this information is protected by the Federal Confidentiality of Alcohol and Drug Abuse Patient Records regulations: The Federal rules restrict any use of the information to criminally investigate or prosecute any alcohol or drug abuse patient.[facility] SystemIn the event this information is protected by the Federal Confidentiality of Alcohol and Drug Abuse Patient Records regulations: The Federal rules restrict any use of the information to criminally investigate or prosecute any alcohol or drug abuse patient.[facility] SystemIn the event this information is protected by the Federal Confidentiality of Alcohol and Drug Abuse Patient Records regulations: The Federal rules restrict any use of the information to criminally investigate or prosecute any alcohol or drug abuse patient.[facility] SystemIn the event this information is protected by the Federal Confidentiality of Alcohol and Drug Abuse Patient Records regulations: The Federal rules restrict any use of the information to criminally investigate or prosecute any alcohol or drug abuse patient.[facility] SystemIn the event this information is protected by the Federal Confidentiality of Alcohol and Drug Abuse Patient Records regulations: The Federal rules restrict any use of the information to criminally investigate or prosecute any alcohol or drug abuse patient.[facility] SystemIn the event this information is protected by the Federal Confidentiality of Alcohol and Drug Abuse Patient Records regulations: The Federal rules restrict any use of the information to criminally investigate or prosecute any alcohol or drug abuse patient.[facility] SystemIn the event this information is protected by the Federal Confidentiality of Alcohol and Drug Abuse Patient Records regulations: The Federal rules restrict any use of the information to criminally investigate or prosecute any alcohol or drug abuse patient.[facility] SystemIn the event this information is protected by the Federal Confidentiality of Alcohol and Drug Abuse Patient Records regulations: The Federal rules restrict any use of the information to criminally investigate or prosecute any alcohol or drug abuse patient.[facility] SystemIn the event this information is protected by the Federal Confidentiality of Alcohol and Drug Abuse Patient Records regulations: The Federal rules restrict any use of the information to criminally investigate or prosecute any alcohol or drug abuse patient.[facility] SystemIn the event this information is protected by the Federal Confidentiality of Alcohol and Drug Abuse Patient Records regulations: The Federal rules restrict any use of the information to criminally investigate or prosecute any alcohol or drug abuse patient.[facility] SystemIn the event this information is protected by the Federal Confidentiality of Alcohol and Drug Abuse Patient Records regulations: The Federal rules restrict any use of the information to criminally investigate or prosecute any alcohol or drug abuse patient.[facility] SystemIn the event this information is protected by the Federal Confidentiality of Alcohol and Drug Abuse Patient Records regulations: The Federal rules restrict any use of the information to criminally investigate or prosecute any alcohol or drug abuse patient.[facility] SystemIn the event this information is protected by the Federal Confidentiality of Alcohol and Drug Abuse Patient Records regulations: The Federal rules restrict any use of the information to criminally investigate or prosecute any alcohol or drug abuse patient.[facility] SystemIn the event this information is protected by the Federal Confidentiality of Alcohol and Drug Abuse Patient Records regulations: The Federal rules restrict any use of the information to criminally investigate or prosecute any alcohol or drug abuse patient.[facility] SystemIn the event this information is protected by the Federal Confidentiality of Alcohol and Drug Abuse Patient Records regulations: The Federal rules restrict any use of the information to criminally investigate or prosecute any alcohol or drug abuse patient.[facility] SystemIn the event this information is protected by the Federal Confidentiality of Alcohol and Drug Abuse Patient Records regulations: The Federal rules restrict any use of the information to criminally investigate or prosecute any alcohol or drug abuse patient.[facility] SystemIn the event this information is protected by the Federal Confidentiality of Alcohol and Drug Abuse Patient Records regulations: The Federal rules restrict any use of the information to criminally investigate or prosecute any alcohol or drug abuse patient.[facility] SystemIn the event this information is protected by the Federal Confidentiality of Alcohol and Drug Abuse Patient Records regulations: The Federal rules restrict any use of the information to criminally investigate or prosecute any alcohol or drug abuse patient.[facility] SystemIn the event this information is protected by the Federal Confidentiality of Alcohol and Drug Abuse Patient Records regulations: The Federal rules restrict any use of the information to criminally investigate or prosecute any alcohol or drug abuse patient.[facility] SystemIn the event this information is protected by the Federal Confidentiality of Alcohol and Drug Abuse Patient Records regulations: The Federal rules restrict any use of the information to criminally investigate or prosecute any alcohol or drug abuse patient.[facility] SystemIn the event this information is protected by the Federal Confidentiality of Alcohol and Drug Abuse Patient Records regulations: The Federal rules restrict any use of the information to criminally investigate or prosecute any alcohol or drug abuse patient.[facility] SystemIn the event this information is protected by the Federal Confidentiality of Alcohol and Drug Abuse Patient Records regulations: The Federal rules restrict any use of the information to criminally investigate or prosecute any alcohol or drug abuse patient.[facility] SystemIn the event this information is protected by the Federal Confidentiality of Alcohol and Drug Abuse Patient Records regulations: The Federal rules restrict any use of the information to criminally investigate or prosecute any alcohol or drug abuse patient.[facility] the event this information is protected by the Federal Confidentiality of Alcohol and Drug Abuse Patient Records regulations: The Federal rules restrict any use of the information to criminally investigate or prosecute any alcohol or drug abuse patient.[facility] SystemIn the event this information is protected by the Federal Confidentiality of Alcohol and Drug Abuse Patient Records regulations: The Federal rules restrict any use of the information to criminally investigate or prosecute any alcohol or drug abuse patient.[facility] SystemIn the event this information is protected by the Federal Confidentiality of Alcohol and Drug Abuse Patient Records regulations: The Federal rules restrict any use of the information to criminally investigate or prosecute any alcohol or drug abuse patient.[facility] SystemIn the event this information is protected by the Federal Confidentiality of Alcohol and Drug Abuse Patient Records regulations: The Federal rules restrict any use of the information to criminally investigate or prosecute any alcohol or drug abuse patient.[facility] SystemIn the event this information is protected by the Federal Confidentiality of Alcohol and Drug Abuse Patient Records regulations: The Federal rules restrict any use of the information to criminally investigate or prosecute any alcohol or drug abuse patient.[facility] SystemIn the event this information is protected by the Federal Confidentiality of Alcohol and Drug Abuse Patient Records regulations: The Federal rules restrict any use of the information to criminally investigate or prosecute any alcohol or drug abuse patient.[facility] SystemIn the event this information is protected by the Federal Confidentiality of Alcohol and Drug Abuse Patient Records regulations: The Federal rules restrict any use of the information to criminally investigate or prosecute any alcohol or drug abuse patient.[facility] SystemIn the event this information is protected by the Federal Confidentiality of Alcohol and Drug Abuse Patient Records regulations: The Federal rules restrict any use of the information to criminally investigate or prosecute any alcohol or drug abuse patient.[facility] SystemIn the event this information is protected by the Federal Confidentiality of Alcohol and Drug Abuse Patient Records regulations: The Federal rules restrict any use of the information to criminally investigate or prosecute any alcohol or drug abuse patient.[facility] SystemIn the event this information is protected by the Federal Confidentiality of Alcohol and Drug Abuse Patient Records regulations: The Federal rules restrict any use of the information to criminally investigate or prosecute any alcohol or drug abuse patient.[facility] SystemIn the event this information is protected by the Federal Confidentiality of Alcohol and Drug Abuse Patient Records regulations: The Federal rules restrict any use of the information to criminally investigate or prosecute any alcohol or drug abuse patient.[facility] SystemIn the event this information is protected by the Federal Confidentiality of Alcohol and Drug Abuse Patient Records regulations: The Federal rules restrict any use of the information to criminally investigate or prosecute any alcohol or drug abuse patient.[facility] SystemIn the event this information is protected by the Federal Confidentiality of Alcohol and Drug Abuse Patient Records regulations: The Federal rules restrict any use of the information to criminally investigate or prosecute any alcohol or drug abuse patient.[facility] SystemIn the event this information is protected by the Federal Confidentiality of Alcohol and Drug Abuse Patient Records regulations: The Federal rules restrict any use of the information to criminally investigate or prosecute any alcohol or drug abuse patient.[facility] SystemIn the event this information is protected by the Federal Confidentiality of Alcohol and Drug Abuse Patient Records regulations: The Federal rules restrict any use of the information to criminally investigate or prosecute any alcohol or drug abuse patient.[facility] SystemIn the event this information is protected by the Federal Confidentiality of Alcohol and Drug Abuse Patient Records regulations: The Federal rules restrict any use of the information to criminally investigate or prosecute any alcohol or drug abuse patient.[facility] SystemIn the event this information is protected by the Federal Confidentiality of Alcohol and Drug Abuse Patient Records regulations: The Federal rules restrict any use of the information to criminally investigate or prosecute any alcohol or drug abuse patient.[facility] SystemIn the event this information is protected by the Federal Confidentiality of Alcohol and Drug Abuse Patient Records regulations: The Federal rules restrict any use of the information to criminally investigate or prosecute any alcohol or drug abuse patient.[facility] SystemIn the event this information is protected by the Federal Confidentiality of Alcohol and Drug Abuse Patient Records regulations: The Federal rules restrict any use of the information to criminally investigate or prosecute any alcohol or drug abuse patient.[facility] SystemIn the event this information is protected by the Federal Confidentiality of Alcohol and Drug Abuse Patient Records regulations: The Federal rules restrict any use of the information to criminally investigate or prosecute any alcohol or drug abuse patient.[facility] SystemIn the event this information is protected by the Federal Confidentiality of Alcohol and Drug Abuse Patient Records regulations: The Federal rules restrict any use of the information to criminally investigate or prosecute any alcohol or drug abuse patient.[facility] SystemIn the event this information is protected by the Federal Confidentiality of Alcohol and Drug Abuse Patient Records regulations: The Federal rules restrict any use of the information to criminally investigate or prosecute any alcohol or drug abuse patient.[facility] SystemIn the event this information is protected by the Federal Confidentiality of Alcohol and Drug Abuse Patient Records regulations: The Federal rules restrict any use of the information to criminally investigate or prosecute any alcohol or drug abuse patient.[facility] SystemIn the event this information is protected by the Federal Confidentiality of Alcohol and Drug Abuse Patient Records regulations: The Federal rules restrict any use of the information to criminally investigate or prosecute any alcohol or drug abuse patient.[facility] SystemIn the event this information is protected by the Federal Confidentiality of Alcohol and Drug Abuse Patient Records regulations: The Federal rules restrict any use of the information to criminally investigate or prosecute any alcohol or drug abuse patient.[facility] SystemIn the event this information is protected by the Federal Confidentiality of Alcohol and Drug Abuse Patient Records regulations: The Federal rules restrict any use of the information to criminally investigate or prosecute any alcohol or drug abuse patient.[facility] SystemIn the event this information is protected by the Federal Confidentiality of Alcohol and Drug Abuse Patient Records regulations: The Federal rules restrict any use of the information to criminally investigate or prosecute any alcohol or drug abuse patient.[facility] SystemIn the event this information is protected by the Federal Confidentiality of Alcohol and Drug Abuse Patient Records regulations: The Federal rules restrict any use of the information to criminally investigate or prosecute any alcohol or drug abuse patient.[facility]In the event this information is protected by the Federal Confidentiality of Alcohol and Drug Abuse Patient Records regulations: The Federal rules restrict any use of the information to criminally investigate or prosecute any alcohol or drug abuse patient.[facility] SystemIn the event this information is protected by the Federal Confidentiality of Alcohol and Drug Abuse Patient Records regulations: The Federal rules restrict any use of the information to criminally investigate or prosecute any alcohol or drug abuse patient.[facility] SystemIn the event this information is protected by the Federal Confidentiality of Alcohol and Drug Abuse Patient Records regulations: The Federal rules restrict any use of the information to criminally investigate or prosecute any alcohol or drug abuse patient.[facility] SystemIn the event this information is protected by the Federal Confidentiality of Alcohol and Drug Abuse Patient Records regulations: The Federal rules restrict any use of the information to criminally investigate or prosecute any alcohol or drug abuse patient.[facility] SystemIn the event this information is protected by the Federal Confidentiality of Alcohol and Drug Abuse Patient Records regulations: The Federal rules restrict any use of the information to criminally investigate or prosecute any alcohol or drug abuse patient.[facility] SystemIn the event this information is protected by the Federal Confidentiality of Alcohol and Drug Abuse Patient Records regulations: The Federal rules restrict any use of the information to criminally investigate or prosecute any alcohol or drug abuse patient.[facility] SystemIn the event this information is protected by the Federal Confidentiality of Alcohol and Drug Abuse Patient Records regulations: The Federal rules restrict any use of the information to criminally investigate or prosecute any alcohol or drug abuse patient.[facility] SystemIn the event this information is protected by the Federal Confidentiality of Alcohol and Drug Abuse Patient Records regulations: The Federal rules restrict any use of the information to criminally investigate or prosecute any alcohol or drug abuse patient.[facility] SystemIn the event this information is protected by the Federal Confidentiality of Alcohol and Drug Abuse Patient Records regulations: The Federal rules restrict any use of the information to criminally investigate or prosecute any alcohol or drug abuse patient.[facility] SystemIn the event this information is protected by the Federal Confidentiality of Alcohol and Drug Abuse Patient Records regulations: The Federal rules restrict any use of the information to criminally investigate or prosecute any alcohol or drug abuse patient.[facility] SystemIn the event this information is protected by the Federal Confidentiality of Alcohol and Drug Abuse Patient Records regulations: The Federal rules restrict any use of the information to criminally investigate or prosecute any alcohol or drug abuse patient.[facility] SystemIn the event this information is protected by the Federal Confidentiality of Alcohol and Drug Abuse Patient Records regulations: The Federal rules restrict any use of the information to criminally investigate or prosecute any alcohol or drug abuse patient.[facility] SystemIn the event this information is protected by the Federal Confidentiality of Alcohol and Drug Abuse Patient Records regulations: The Federal rules restrict any use of the information to criminally investigate or prosecute any alcohol or drug abuse patient.[facility] SystemIn the event this information is protected by the Federal Confidentiality of Alcohol and Drug Abuse Patient Records regulations: The Federal rules restrict any use of the information to criminally investigate or prosecute any alcohol or drug abuse patient.[facility] SystemIn the event this information is protected by the Federal Confidentiality of Alcohol and Drug Abuse Patient Records regulations: The Federal rules restrict any use of the information to criminally investigate or prosecute any alcohol or drug abuse patient.[facility]In the event this information is protected by the Federal Confidentiality of Alcohol and Drug Abuse Patient Records regulations: The Federal rules restrict any use of the information to criminally investigate or prosecute any alcohol or drug abuse patient.[facility] SystemIn the event this information is protected by the Federal Confidentiality of Alcohol and Drug Abuse Patient Records regulations: The Federal rules restrict any use of the information to criminally investigate or prosecute any alcohol or drug abuse patient.[facility] SystemIn the event this information is protected by the Federal Confidentiality of Alcohol and Drug Abuse Patient Records regulations: The Federal rules restrict any use of the information to criminally investigate or prosecute any alcohol or drug abuse patient.[facility] SystemIn the event this information is protected by the Federal Confidentiality of Alcohol and Drug Abuse Patient Records regulations: The Federal rules restrict any use of the information to criminally investigate or prosecute any alcohol or drug abuse patient.[facility] SystemIn the event this information is protected by the Federal Confidentiality of Alcohol and Drug Abuse Patient Records regulations: The Federal rules restrict any use of the information to criminally investigate or prosecute any alcohol or drug abuse patient.[facility] SystemIn the event this information is protected by the Federal Confidentiality of Alcohol and Drug Abuse Patient Records regulations: The Federal rules restrict any use of the information to criminally investigate or prosecute any alcohol or drug abuse patient.[facility]In the event this information is protected by the Federal Confidentiality of Alcohol and Drug Abuse Patient Records regulations: The Federal rules restrict any use of the information to criminally investigate or prosecute any alcohol or drug abuse patient.[facility] SystemIn the event this information is protected by the Federal Confidentiality of Alcohol and Drug Abuse Patient Records regulations: The Federal rules restrict any use of the information to criminally investigate or prosecute any alcohol or drug abuse patient.[facility] Reason for Visit (unrecogniz ed section and content) Reason Onset Date Comments Refill Request 09/09/2021 Reason Onset Date Comments Population Health Navigation Outreach 09/11/2021 [employer] care gaps Reason Comments ER FU apt Reason Comments Wound Check Reason Onset Date Comments Refill Request 09/19/2021 Reason Onset Date Comments Refill Request 09/23/2021 Reason Onset Date Comments Refill Request 10/24/2021 Reason Onset Date Comments Refill Request 10/26/2021 Reason Onset Date Comments Refill Request 10/28/2021 Reason Onset Date Comments Refill Request 12/01/2021 Reason Comments Patient Update Reason Onset Date Comments Refill Request 12/20/2021 Reason Comments [facility] OT POC Reason Onset Date Comments Refill Request 01/31/2022 Reason Onset Date Comments community monitoring outreach 02/09/2022 in [facility] enrollment with [facility] introduction Reason Comments Insurance Authorization Reason Onset Date Comments community monitoring outreach 02/14/2022 in [facility]ight enrollment with [facility] introduction Reason Onset Date Comments community monitoring outreach 02/17/2022 in [facility]ight enrollment with [facility] introduction Reason Onset Date Comments community monitoriong outreach 02/19/2022 i n[facility]ight enrollment with [facility] introduction Reason Onset Date Comments Refill Request 02/25/2022 Reason Onset Date Comments Refill Request 03/06/2022 Reason Onset Date Comments Community Monitoring Outreach 03/10/2022 in Sight questionnaire follow up Reason Onset Date Comments [facility] 03/11/2022 in Sight questionnaire follow up Reason Onset Date Comments Population Health Navigation Outreach 03/17/2022 Healthy [facility] Reason Comments Social Work Services Reason Onset Date Comments Follow Up Immunizations 03/20/2022 Flu vaccination Reason Comments Patient Question Regarding return of Cologuard Reason Onset Date Comments [facility] Outreach 04/07/2022 in Sight questionnaire follow up Reason Comments Appointment Appointment Reason Onset Date Comments [facility] 05/07/2022 Check in call Reason Comments Refill Request Reason Onset Date Comments [facility] 06/06/2022 Check in call Reason Onset Date Comments [facility] 06/10/2022 Check in call Reason Onset Date Comments [facility] Health Navigation Outreach 06/13/2022 hcc Reason Comments Established Patient Specialty Diagnoses / Procedures Referred By Contac t Referred To Contact Pulmonary and Critical Care Medicine Diagnoses Centrilobular emphysema (HCC) Procedures CONSULT TO PULM/CRITICAL CARE OFFICE/OUTPATIENT [facility] 60-74 MINUTES Jalyn Smith MD [address] [place] [address] Referral ID Status Reason Start Date Expiration Date V isits Requested Visits Authorized [id number] Closed PCP Requested Referral 03/20/2022 03/20/2023 1 1 Reason Onset Date Comments Refill Request 06/26/2022 Reason Onset Date Comments Refill Request 06/30/2022 Reason Onset Date Comments Refill Request 07/02/2022 Reason Onset Date Comments [facility] 07/08/2022 Check in call Reason Comments Orders Reason Comments Wound Check Right lower leg new wound. Also old wound on back on left leg is seeping again. Reason Onset Date Comments Refill Request 07/21/2022 Reason Onset Date Comments [facility] 08/06/2022 Check in call Reason Onset Date Comments [facility] 09/11/2022 Check in call Reason Comments Information Reason Comments Follow Up Reason Onset Date Comments Refill Request 10/15/2022 Reason Onset Date Comments M 10/14/2022 Check in call Reason Onset Date Comments [facility] 11/13/2022 CD telepho joshua Reason Comments Weakness Would like referral for home health and therapy Reason Onset Date Comments [facility] 12/15/2022 CD telepho joshua Reason Comments [facility] HH OT POC update Reason Onset Date Comments Refill Request 01/08/2023 Reason Comments Hospital F/U Reason Onset Date Comments community monitoring 01/12/2023 CD telepho joshua Reason Comments Results Reason Comments Pain Management Referral Reason Comments COPD Reason Comments Patient Update Orders Reason Comments Forms Reason Onset Date Comments community monitoring 02/10/2023 CDM telepho joshua Reason Onset Date Comments community monitoring 03/27/2023 CD telepho joshua Reason Onset Date Comments Refill Request 03/27/[address] Specialty Diagnoses / Procedures Referred By Contac t Referred To Contact CT IMAGING Diagnoses 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, abdominal (HCC) Procedures CTA ABD/PEL W IVCON CT ANGIO ABD&PLVIS CNTRST MTRL W/WO CNTRST Herminia Sanz, FOREIGN FOOD COOK SPECIALTY.REFINERY OPERATOR HELPER [address] [place] [id number] [facility] [place] [facility] Referral ID Status Reason Start Date Expiration Date V isits Requested Visits Authorized [id number] Closed Auto-Generat ed Referral Patient Cleared - Admin/Chairm an/Director advise to proceed or did not respond 04/18/2022 05/18/2022 1 1 Specialty Diagnoses / Procedures Referred By Contac t Referred To Contact CT IMAGING Diagnoses 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, abdominal (HCC) Procedures CTA CHEST (NONGATED) W IVCON CT ANGIOGRAPHY CHEST W/CONTRAST/NONCONTRAST Herminia Carrera, FOREIGN FOOD COOK SPECIALTY.REFINERY OPERATOR HELPER [address] [place] [address] [place] [address] Referral ID Status Reason Start Date Expiration Date V isits Requested Visits Authorized [id number] Closed Auto-Generat ed Referral Patient Cleared - Admin/Chairm an/Director advise to proceed or did not respond 04/18/2022 05/18/2022 1 1 Reason Onset Date Comments Community monitoring outreach 04/22/2023 CD Telephonic outreach Reason Onset Date Comments Refill Request 05/03/2023 Reason Onset Date Comments Refill Request 05/18/2023 Reason Onset Date Comments community monitoring 07/16/2023 CDM telepho joshua Reason Onset Date Comments community monitoring 07/20/2023 CDM telepho joshua Reason Comments Established Patient 6 month follow up Reason Onset Date Comments Refill Request 08/03/2023 Reason Onset Date Comments community monitoring 08/17/2023 CDM telepho joshua Reason Onset Date Comments community monitoring 08/24/2023 CDM telepho joshua Reason Onset Date Comments Refill Request 08/24/2023 Reason Comments Abdominal Pain Reason Comments Nurse Triage Call Reason Comments ER F/U Reason Comments Patient Update Orders Reason Comments Appointment Reason Onset Date Comments Refill Request 09/11/2023 Reason Onset Date Comments Refill Request 09/14/2023 Reason Onset Date Comments community monitoring 09/21/2023 CDM telepho joshua Reason Comments New Patient Consult Referral Jalyn yanes Aneurysm Thoracic aortic aneu rysm without rupture; dissection of descending aorta Reason Comments Spirometry Specialty Diagnoses / Procedures Referred By Contac t Referred To [facility] Diagnoses Hypoxemia Procedures OXIMETRY WITH AMBULATION NONINVASIVE EAR/PULSE OXIMETRY MULTIPLE Zackery Mckeon MD [address] [place] [address] [facility] [place] [address] [place] [id number] Referral ID Status Reason Start Date Expiration Date V isits Requested Visits Authorized [id number] Closed Auto-Generate d Referral 09/10/2023 10/09/2024 1 1 Reason Onset Date Comments Refill Request 10/02/2023 Specialty Diagnoses / Procedures Referred By Contac t Referred To Contact CT IMAGING Diagnoses Abdominal aortic aneurysm (AAA) without rupture, unspecified part (HCC) Dissection of thoracoabdominal aorta (HCC) Procedures CTA ABD/PEL W IVCON CT ANGIO ABD&PLVIS CNTRST MTRL W/WO CNTRST Yaniv Carvajal MD [address] [place] [address] [address] [place] [address] Referral ID Status Reason Start Date Expiration Date V isits Requested Visits Authorized [id number] Closed Auto-Generate d Referral 10/14/2023 11/13/2023 1 1 Reason Onset Date Comments community monitoring 10/19/2023 CDM telepho joshua Reason Onset Date Comments Refill Request 10/28/2023 Reason Comments General Questions Reason Comments Established Patient Reason Onset Date Comments Refill Request 11/12/2023 Reason Onset Date Comments Refill Request 11/18/2023 Opened In Error 11/18/2023 Reason Onset Date Comments community monitoring 12/14/2023 CDM telepho joshua Reason Comments Established Patient 3 month follow up Reason Onset Date Comments Refill Request 01/11/2024 Reason Onset Date Comments community monitoring 01/11/2024 CDM telepho joshua Reason Onset Date Comments community monitoring 02/03/2024 CDM telepho joshua Reason Onset Date Comments Refill Request 02/09/2024 Reason Onset Date Comments Refill Request 02/27/2024 Reason Onset Date Comments community monitoring 03/02/2024 CDM telepho joshua Reason Onset Date Comments Refill Request 03/02/2024 Reason Comments 6 Month Exam Reason Comments Results Reason Onset Date Comments community monitoring 03/31/2024 CDM telepho joshua Reason Onset Date Comments community monitoring 04/28/2024 CDM telepho joshua Reason Onset Date Comments Refill Request 05/16/2024 Reason Comments Med Change Request Reason Onset Date Comments Refill Request 06/07/2024 Reason Onset Date Comments Refill Request 08/03/2024 Reason Onset Date Comments Population Health Navigation Outreach 08/25/2024 [employer] [place] Reason Comments Patient Question Reason Comments 6 Month Exam ER F/U Reason Onset Date Comments Refill Request 09/20/2024 Reason Onset Date Comments Refill Request 09/30/2024 Reason Onset Date Comments Refill Request 10/03/2024 Reason Onset Date Comments Auto Motor Mechanic- Other 10/10/2024 Reason Onset Date Comments Population Health Navigation Outreach 11/21/2024 [employer] [place] Reason Onset Date Comments Population Health Navigation Outreach 12/21/2024 [employer] [place] Reason Comments Surgical Clearance Reason Onset Date Comments Population Health Navigation Outreach 01/20/2025 [employer] [place] Care Teams (unrecognized sec tion and content) Batchmaker Relationship Specialty Start Date End Date Jalyn Smith MD [address] [facility] [address] PCP - General Family Practice 01/28/13 Brady Avila MD [address] [place] [address] Pulmonary and Critical Care Medicine 11/01/20 Batchmaker Relationship Specialty Start Date End Date Jalyn Smith MD [address] [facility] [address] PCP - General Family Practice 01/28/13 Brady Avila MD [address] [place] [address] Pulmonary and Critical Care Medicine 11/01/20 Batchmaker Relationship Specialty Start Date End Date Jalyn Smith MD [address] [facility] [address] PCP - General Family Practice 01/28/13 Brady Avila MD [address] [place] [address] Pulmonary and Critical Care Medicine 11/01/20 Batchmaker Relationship Specialty Start Date End Date Jalyn Smith MD [address] [facility] [address] PCP - General Family Practice 01/28/13 Brady Avila MD [address] [place] [address] Pulmonary and Critical Care Medicine 11/01/20 Batchmaker Relationship Specialty Start Date End Date Jalyn Smith MD [address] [facility] [address] PCP - General Family Practice 01/28/13 Brady Avila MD [address] [place] [address] Pulmonary and Critical Care Medicine 11/01/20 Batchmaker Relationship Specialty Start Date End Date Jalyn Smith MD [address] [facility] [address] PCP - General Family Practice 01/28/13 Brady Avila MD [address] [place] [address] Pulmonary and Critical Care Medicine 11/01/20 Batchmaker Relationship Specialty Start Date End Date Jalyn Smith MD [address] [facility] [address] PCP - General Family Practice 01/28/13 Brady Avila MD [address] [place] [address] Pulmonary and Critical Care Medicine 11/01/20 Batchmaker Relationship Specialty Start Date End Date Jalyn Smith MD [address] [facility] [address] PCP - General Family Practice 01/28/13 Brady Avila MD [address] [place] [address] Pulmonary and Critical Care Medicine 11/01/20 Batchmaker Relationship Specialty Start Date End Date Jalyn Smith MD [address] [facility] [address] PCP - General Family Practice 01/28/13 Brady Avila MD [address] [place] [address] Pulmonary and Critical Care Medicine 11/01/20 Batchmaker Relationship Specialty Start Date End Date Jalyn Smith MD [address] [facility] [address] PCP - General Family Practice 01/28/13 Brady Avila MD [address] [place] [address] Pulmonary and Critical Care Medicine 11/01/20 Batchmaker Relationship Specialty Start Date End Date Jalyn Smith MD [address] [facility] [address] PCP - General Family Practice 01/28/13 Brady Avila MD [address] [place] [address] Pulmonary and Critical Care Medicine 11/01/20 Batchmaker Relationship Specialty Start Date End Date Luis, Jalyn J, MD [address] [facility] [address] PCP - General Family Practice 01/28/13 Brady Avila MD [address] [facility] [address] [address] [place] [address] Pulmonary and Critical Care Medicine 11/01/20 Batchmaker Relationship Specialty Start Date End Date Jalyn Smith MD [address] [facility] [place] [address] PCP - General Family Practice 01/28/13 Brady Avila MD [address] [place] [place] [address] Pulmonary and Critical Care Medicine 11/01/20October, Darlene Islas RN [address] [place] [address] Auto Motor Mechanic Unspecified 02/19/22 Batchmaker Relationship Specialty Start Date End Date Jalyn Smith MD [address] [facility] [place] [address] PCP - General Family Medicine 01/28/13 Brady Avila MD [address] [place] [address] Pulmonary and Critical Care Medicine 11/01/20October, Darlene Islas RN [address] [place] [address] Auto Motor Mechanic Unspecified 02/19/22 Batchmaker Relationship Specialty Start Date End Date Jalyn Smith MD [address] [facility] [place] [address] PCP - General Family Medicine 01/28/13 Brady Avila MD [address] [place] [address] Pulmonary and Critical Care Medicine 11/01/20October, Darlene Islas RN [address] [place] [address] Auto Motor Mechanic Unspecified 02/19/22 Batchmaker Relationship Specialty Start Date End Date Jalyn Smith MD [address] [place] [address] PCP - General Family Medicine 01/28/13 Brady Avila MD [address] [place] [address] Pulmonary and Critical Care Medicine 11/01/20October, Darlene Islas RN [address] [place] [address] Auto Motor Mechanic Unspecified 02/19/22 Batchmaker Relationship Specialty Start Date End Date Jalyn Smith MD [address] [place] [address] PCP - General Family Medicine 01/28/13 Brady Avila MD [address] [place] [address] Pulmonary and Critical Care Medicine 11/01/20October, Darlene Islas RN [address] [place] [address] Auto Motor Mechanic Unspecified 02/19/22 Batchmaker Relationship Specialty Start Date End Date Jalyn Smith MD [address] [place] [address] PCP - General Family Medicine 01/28/13 Brady Avila MD [address] [place] [address] Pulmonary and Critical Care Medicine 11/01/20October, Darlene Islas RN [address] [place] [address] Auto Motor Mechanic Unspecified 02/19/22 Batchmaker Relationship Specialty Start Date End Date Jalyn Smith MD [address] [place] [address] PCP - General Family Medicine 01/28/13 Brady Avila MD [address] [place] [address] Pulmonary and Critical Care Medicine 11/01/20 Yanni, Darlene Islas RN [address] [place] [address] Auto Motor Mechanic Unspecified 02/19/22 Batchmaker Relationship Specialty Start Date End Date Jalyn Smith MD [address] [place] [address] PCP - General Family Medicine 01/28/13 Brady Avila MD [address] [place] [address] Pulmonary and Critical Care Medicine 11/01/20October, Darlene Islas RN [address] [place] [address] Auto Motor Mechanic Unspecified 02/19/22 Batchmaker Relationship Specialty Start Date End Date Jalyn Smith MD [address] [place] [address] PCP - General Family Medicine 01/28/13 Brady Avila MD [address] [place] [address] Pulmonary and Critical Care Medicine 11/01/20October, Darlene Islas RN [address] [place] [address] Auto Motor Mechanic Unspecified 02/19/22 Batchmaker Relationship Specialty Start Date End Date Jalyn Smith MD [address] [place] [address] PCP - General Family Medicine 01/28/13 Brady Avila MD [address] [place] [address] Pulmonary and Critical Care Medicine 11/01/20October, Darlene Isals RN [address] [place] [address] Auto Motor Mechanic Unspecified 02/19/22 Batchmaker Relationship Specialty Start Date End Date Jalyn Smith MD [address] [place] [address] PCP - General Family Medicine 01/28/13 Brady Avila MD [address] [facility] [address] Pulmonary and Critical Care Medicine 11/01/20October, Darlene Islas RN [address] [place] [address] Auto Motor Mechanic Unspecified 02/19/22 Batchmaker Relationship Specialty Start Date End Date Jalyn Smith MD [address] [place] [address] PCP - General Family Medicine 01/28/13 Brady Avila MD [address] [place] [address] Pulmonary and Critical Care Medicine 11/01/20October, Darlene Islas RN [address] [place] [address] Auto Motor Mechanic Unspecified 02/19/22 Batchmaker Relationship Specialty Start Date End Date Jalyn Smith MD [address] [place] [address] PCP - General Family Medicine 01/28/13 Brady Avila MD [address] [place] [address] Pulmonary and Critical Care Medicine 11/01/20October, Darlene Islas RN [address] [place] [address] Auto Motor Mechanic Unspecified 02/19/22 Batchmaker Relationship Specialty Start Date End Date Jalyn Smith MD [address] [place] [address] PCP - General Family Medicine 01/28/13 Brady Avila MD [address] [place] [address] Pulmonary and Critical Care Medicine 11/01/20October, Darlene Islas RN [address] [place] [address] Auto Motor Mechanic Unspecified 02/19/22 Batchmaker Relationship Specialty Start Date End Date Jalyn Smith MD [address] [place] [address] PCP - General Family Medicine 01/28/13 Brady Avila MD [address] [place] [address] Pulmonary and Critical Care Medicine 11/01/20October, Darlene Islas RN [address] [place] [address] Auto Motor Mechanic Unspecified 02/19/22 Batchmaker Relationship Specialty Start Date End Date Jalyn Smith MD [address] [place] [address] PCP - General Family Medicine 01/28/13 Brady Avila MD [address] [place] [address] Pulmonary and Critical Care Medicine 11/01/20October, Darlene Islas RN [address] [place] [address] Auto Motor Mechanic Unspecified 02/19/22 Batchmaker Relationship Specialty Start Date End Date Jalyn Smith MD [address] [place] [address] PCP - General Family Medicine 01/28/13 Brady Avila MD [address] [place] [address] Pulmonary and Critical Care Medicine 11/01/20October, Darlene Islas RN [address] [place] [address] Auto Motor Mechanic Unspecified 02/19/22 Batchmaker Relationship Specialty Start Date End Date Jalyn Smith MD [address] [place] [address] PCP - General Family Medicine 01/28/13 Brady Avila MD [address] [place] [address] Pulmonary and Critical Care Medicine 11/01/20October, Darlene Islas RN [address] [place] [address] Auto Motor Mechanic Unspecified 02/19/22 Team Status: Active Member Role Status Dates Dr. Jalyn Smith MD Family Provider Active Dr. Jalyn Smith MD Primary Care Provider Active Team Status: Inactive Member Role Status Dates Dr. Jalyn Smith MD Primary Care Provider Active Dr. Nisha Magallon DO Attending Provider Active Batchmaker Relationship Specialty Start Date End Date Jalyn Smith MD [address] [place] [address] PCP - General Family Medicine 01/28/13 Brady Avila MD [address] [place] [address] Pulmonary and Critical Care Medicine 11/01/20October, Darlene Islas RN [address] [place] [address] Auto Motor Mechanic Unspecified 02/19/22 Batchmaker Relationship Specialty Start Date End Date Jalyn Smith MD [address] [place] [address] PCP - General Family Medicine 01/28/13 Brady Avila MD [address] [facility], [place] [address] Pulmonary and Critical Care Medicine 11/01/20October, Darlene Islas RN [address] [place] [address] Auto Motor Mechanic Unspecified 02/19/22 Team Status: Inactive Member Role Status Dates Dr. Jalyn Smith MD Primary Care Provider Active Dr. Nisha Magallon DO Attending Provider, Referring Prov ider Active Batchmaker Relationship Specialty Start Date End Date Jalyn Smith MD [address] [place] [address] PCP - General Family Medicine 01/28/13 Brady Avila MD [address] [place] [address] Pulmonary and Critical Care Medicine 11/01/20October, Darlene Islas RN [address] [place] [address] Auto Motor Mechanic Unspecified 02/19/22 Batchmaker Relationship Specialty Start Date End Date Jalyn Smith MD [address] [place] [address] PCP - General Family Medicine 01/28/13 Brady Avila MD [address] [place] [address] Pulmonary and Critical Care Medicine 11/01/20 Sleene Anaya RN [address] [place], [place] [id number] Auto Motor Mechanic Internal Medicine 11/10/22 Batchmaker Relationship Specialty Start Date End Date Jalyn Smith MD [address] [place] [address] PCP - General Family Medicine 01/28/13 Brady Avila MD [address] [place] [address] Pulmonary and Critical Care Medicine 11/01/20 Selene Anaya RN [address] [place], [place] [id number] Auto Motor Mechanic Internal Medicine 11/10/22 Batchmaker Relationship Specialty Start Date End Date Jalyn Smith MD [address] [place] [address] PCP - General Family Medicine 01/28/13 Brady Avila MD [address] [place] [address] Pulmonary and Critical Care Medicine 11/01/20 Selene Anaya RN [address] [place], [place] [id number] Auto Motor Mechanic Internal Medicine 11/10/22 Team Status: Active Member Role Status Dates Dr. Jalyn Smith MD Primary Care Provider Active Dr. Hector Fields DO Emergency Provider Active Dr. Burke Patterson MD Admit Provider, Attending Pro vider Active Batchmaker Relationship Specialty Start Date End Date Jalyn Smith MD [address] [facility], [place] [id number] PCP - General Family Medicine 01/28/13 Brady Avila MD [address] [facility] [place] [id number] Pulmonary and Critical Care Medicine 11/01/20 Selene Anaya, RN [address] [place] [address] Auto Motor Mechanic Internal Medicine 11/10/22 Batchmaker Relationship Specialty Start Date End Date Jalyn Smith MD [address] [place], [place] [id number] PCP - General Family Medicine 01/28/13 Brady Avila MD [address], [place] [id number] Pulmonary and Critical Care Medicine 11/01/20 Selene Anaya RN [address] [place] [address] Auto Motor Mechanic Internal Medicine 11/10/22 Team Status: Active Member Role Status Dates Dr. Jalyn Smith MD Primary Care Provider Active Dr. Hector Fields DO Emergency Provider Active Dr. Burke Patterson MD Admit Provider, Attending Provider, Other Provider Active Team Status: Active Member Role Status Dates Dr. Jalyn Smith MD Primary Care Provider Active Dr. Hector Fields DO Emergency Provider Active Dr. Burke Patterson MD Admit Provider, Other Provide r Active Dr. Angle Latham MD Attending Provider, Other Provid er Active Team Status: Active Member Role Status Dates Dr. Jalyn Smith MD Primary Care Provider Active Dr. Hector Fields DO Emergency Provider Active Dr. Burke Patterson MD Admit Provider, Other Provide r Active Dr. Chris Deshpande MD Attending Provider, Other Provi prema Active Dr. Angle Latham MD Other Provider Active Team Status: Inactive Member Role Status Dates Dr. Jalyn Smith MD Primary Care Provider Active Dr. Hector Fields DO Emergency Provider Active Dr. Burke Patterson MD Admit Provider, Other Provide r Active Dr. Chris Deshpande MD Attending Provider Active Dr. Angle Latham MD Other Provider Active Batchmaker Relationship Specialty Start Date End Date Jalyn Smith MD [address] [place], [place] [address] PCP - General Family Medicine 01/28/13 Brady Avila MD [address] [facility] [place], [place] [address] Pulmonary and Critical Care Medicine 11/01/20 Selene Anaya RN [address] [place] [address] Auto Motor Mechanic Internal Medicine 11/10/22 Team Status: Inactive Member Role Status Dates Dr. Jalyn Smith MD Primary Care Provider Active Dr. Gustavo Justice MD Admit Provider, At tending Provider, Referring Provider Active Dr. Neftaly Lam DO Other Provider Active Dr. Concepcion Peacock MD Other Provider Active Kaci Patino VENTILATING EXPERT-C Other Provider Active Melanie Ochoa NP, VENTILATING EXPERT-C Other Provider Active Batchmaker Relationship Specialty Start Date End Date Jalyn Smith MD [address] [place], [place] [id number] PCP - General Family Medicine 01/28/13 Brady Avila MD [address], [place] [id number] Pulmonary and Critical Care Medicine 11/01/20 Selene Anaya RN [address] [place] [address] Auto Motor Mechanic Internal Medicine 11/10/22 Batchmaker Relationship Specialty Start Date End Date Jalyn Smith MD [address] [place], [place] [id number] PCP - General Family Medicine 01/28/13 Brady Avila MD [address] [facility] [place] [id number] Pulmonary and Critical Care Medicine 11/01/20 Selene Anaya RN [address] [place] [address] Auto Motor Mechanic Internal Medicine 11/10/22 Batchmaker Relationship Specialty Start Date End Date Jalyn Smith MD [address] [facility] [place], [place] [address]951 PCP - General Family Medicine 01/28/13 Brady Avila MD [address] [facility], [place] [address]671 Pulmonary and Critical Care Medicine 11/01/20 Selene Anaya, SANDRA [address] [facility], [place] [id number] Auto Motor Mechanic Internal Medicine 11/10/22 Batchmaker Relationship Specialty Start Date End Date Jalyn Smith MD [address] [place] [address] PCP - General Family Medicine 01/28/13 Brady Avila MD [address] [place] [address] Pulmonary and Critical Care Medicine 11/01/20 Selene Anaya RN [address], [place] [id number] Auto Motor Mechanic Internal Medicine 11/10/22 Batchmaker Relationship Specialty Start Date End Date Jalyn Smith MD [address] [place] [address] PCP - General Family Medicine 01/28/13 Brady Avila MD [address] [facility] [address] [address] [facility] [address]11 Pulmonary and Critical Care Medicine 11/01/20 Selene Anaya, SANDRA [address] [place], [place] [id number] Auto Motor Mechanic Internal Medicine 11/10/22 Batchmaker Relationship Specialty Start Date End Date Jalyn Smith MD [address] [facility] [place], [place] [address]491 PCP - General Family Medicine 01/28/13 Brady Avila MD [address] [facility], [place] 74[address]51 Pulmonary and Critical Care Medicine 11/01/20 Selene Anaya RN [address] [place] [id number] Auto Motor Mechanic Internal Medicine 11/10/22 Batchmaker Relationship Specialty Start Date End Date Jalyn Smith MD [address] [facility] [place], [place] [id number] PCP - General Family Medicine 01/28/13 Brady Avila MD [address] [place] [address] Pulmonary and Critical Care Medicine 11/01/20 Selene Anaya RN [address] [place] [id number] Auto Motor Mechanic Internal Medicine 11/10/22 Team Status: Active Member Role Status Dates Dr. Jalyn Smith MD Primary Care Provider Active Dr. Nehemiah Farooq MD Attending Provider Active Dr. Gustavo Justice MD Referring Provider Active Team Status: Inactive Member Role Status Dates Dr. Jalyn Smith MD Primary Care Provider Active Dr. Chin Paul MD Attending Provider, Referring Pr ovider Active Batchmaker Relationship Specialty Start Date End Date Jalyn Smith MD [address] [facility] [place], [place] 4[address]11 PCP - General Family Medicine 01/28/13 Brady Avila MD [address] [facility], [place] [id number] Pulmonary and Critical Care Medicine 11/01/20 Selene Anaya RN [address] [place] [address] Auto Motor Mechanic Internal Medicine 11/10/22 Batchmaker Relationship Specialty Start Date End Date Jalyn Smith MD [address] [facility] [place], [place] [address]21 PCP - General Family Medicine 01/28/13 Brady Avila MD [address] [place], [place] 127771 Pulmonary and Critical Care Medicine 11/01/20 Selene Anaya, SANDRA [address] [place], [place] [phone] Auto Motor Mechanic Internal Medicine 11/10/22 Batchmaker Relationship Specialty Start Date End Date Jalyn Smith MD [address] [facility] [place] [address] PCP - General Family Medicine 01/28/13 Brady Avila MD [address], [place] [address] Pulmonary and Critical Care Medicine 11/01/20October, Darlene Islas RN [address] [place] [address] Auto Motor Mechanic Unspecified 02/19/22 11/09/22 Batchmaker Relationship Specialty Start Date End Date Jalyn Smith MD [address] [facility] [place] [address] PCP - General Family Medicine 01/28/13 Brady Avila MD [address] [place], [place] [address] Pulmonary and Critical Care Medicine 11/01/20October, Darlene Islas RN [address] [place] [address] Auto Motor Mechanic Unspecified 02/19/22 11/09/22 Batchmaker Relationship Specialty Start Date End Date Jalyn Smith MD [address] [facility] [place] [address] PCP - General Family Medicine 01/28/13 Brady Avila MD [address] [place], [place] [address] Pulmonary and Critical Care Medicine 11/01/20 Selene Anaya, SANDRA [address] [place], [place] [id number] Auto Motor Mechanic Internal Medicine 11/10/22 Batchmaker Relationship Specialty Start Date End Date Jalyn Smith MD [address] [facility] [place] [address] PCP - General Family Medicine 01/28/13 Brady Avila MD [address] [place], [place] 04[address] Pulmonary and Critical Care Medicine 11/01/20 Selene Anaya RN [address] [place] [address] Auto Motor Mechanic Internal Medicine 11/10/22 Batchmaker Relationship Specialty Start Date End Date Jalyn Smith MD [address] [place] [address] PCP - General Family Medicine 01/28/13 Brady Avila MD [address] [place] [address] Pulmonary and Critical Care Medicine 11/01/20 Selene Anaya RN [address] [place] [address] Auto Motor Mechanic Internal Medicine 11/10/22 Batchmaker Relationship Specialty Start Date End Date Jalyn Smith MD [address] [place] [address] PCP - General Family Medicine 01/28/13 Brady Avila MD [address] [place] [address] Pulmonary and Critical Care Medicine 11/01/20 Selene Anaya, SANDRA [address] [place], [place] [phone] Auto Motor Mechanic Internal Medicine 11/10/22 Team Status: Inactive Member Role Status Dates Dr. Jalyn Smith MD Primary Care Provider Active Dr. Juni Ho DO Emergency Provider Active Batchmaker Relationship Specialty Start Date End Date Jalyn Smith MD [address] [facility], [place] 37[address]41 PCP - General Family Medicine 01/28/13 Brady Avila MD [address] [facility], [place] 962181 Pulmonary and Critical Care Medicine 11/01/20 Selene Anaya RN [address] [place] [address] Auto Motor Mechanic Internal Medicine 11/10/22 Batchmaker Relationship Specialty Start Date End Date Jalyn Smith MD [address] [facility] [place] [address] PCP - General Family Medicine 01/28/13 Brady Avila MD [address] [address] Pulmonary and Critical Care Medicine 11/01/20 Selene Anaya RN [address] [place] [address] Auto Motor Mechanic Internal Medicine 11/10/22 Batchmaker Relationship Specialty Start Date End Date Jalyn Smith MD [address] [facility] [place] [address] PCP - General Family Medicine 01/28/13 Brady Avila MD [address] [address] Pulmonary and Critical Care Medicine 11/01/20 Selene Anaya RN [address] [facility], [place] [id number] Auto Motor Mechanic Internal Medicine 11/10/22 Batchmaker Relationship Specialty Start Date End Date Jalyn Smith MD [address] [place] [address] PCP - General Family Medicine 01/28/13 Brady Avila MD [address] [place] [address] Pulmonary and Critical Care Medicine 11/01/20 Selene Anaya RN [address] [facility], [place] [id number] Auto Motor Mechanic Internal Medicine 11/10/22 Batchmaker Relationship Specialty Start Date End Date Jalyn Smith MD [address] [place] [address] PCP - General Family Medicine 01/28/13 Brady Avila MD [address] [place] [address] Pulmonary and Critical Care Medicine 11/01/20 Selene Anaya RN [address] [facility], [place] [id number] Auto Motor Mechanic Internal Medicine 11/10/22 Batchmaker Relationship Specialty Start Date End Date Jalyn Smith MD [address] [place] [address] PCP - General Family Medicine 01/28/13 Brady Avila MD [address] [place] [address] Pulmonary and Critical Care Medicine 11/01/20 Selene Anaya RN [address] [facility], [place] [phone] Auto Motor Mechanic Internal Medicine 11/10/22 Batchmaker Relationship Specialty Start Date End Date Jalyn Smith MD [address] [place] [address] PCP - General Family Medicine 01/28/13 Brady Avila MD [address] [place] [address] Pulmonary and Critical Care Medicine 11/01/20 Selene Anaya, SANDRA [address] [place], [place] [id number] Auto Motor Mechanic Internal Medicine 11/10/22 Batchmaker Relationship Specialty Start Date End Date Jalyn Smith MD [address] [place] [address] PCP - General Family Medicine 01/28/13 Brady Avila MD [address] [place] [address] Pulmonary and Critical Care Medicine 11/01/20 Selene Anaya, SANDRA [address] [place], [place] [id number] Auto Motor Mechanic Internal Medicine 11/10/22 Batchmaker Relationship Specialty Start Date End Date Jalyn Smith MD [address] [place] [address] PCP - General Family Medicine 01/28/13 Brady Avila MD [address] [place] [address] Pulmonary and Critical Care Medicine 11/01/20 Selene Anaya, SANDRA [address] [place] [address] Auto Motor Mechanic Internal Medicine 11/10/22 Batchmaker Relationship Specialty Start Date End Date Jalyn Smith MD [address] [place] [address] PCP - General Family Medicine 01/28/13 Brady Avila MD [address] [place] [address] Pulmonary and Critical Care Medicine 11/01/20 Selene Anaya, SANDRA [address] [facility], [place] [phone] Auto Motor Mechanic Internal Medicine 11/10/22 Batchmaker Relationship Specialty Start Date End Date Jalyn Smith MD [address] [facility] [address] PCP - General Family Medicine 01/28/13 Brady Avila MD [address] [place] [address] Pulmonary and Critical Care Medicine 11/01/20 Selene Anaya RN [address] [place] [address] Auto Motor Mechanic Internal Medicine 11/10/22 Batchmaker Relationship Specialty Start Date End Date Jalyn Smith MD [address] [facility] [address] PCP - General Family Medicine 01/28/13 Brady Avila MD [address] [place] [address] Pulmonary and Critical Care Medicine 11/01/20 Selene Anaya RN [address] [place] [address] Auto Motor Mechanic Internal Medicine 11/10/22 Batchmaker Relationship Specialty Start Date End Date Jalyn Smith MD [address] [facility] [address] PCP - General Family Medicine 01/28/13 Brady Avila MD [address] [place] [address] Pulmonary and Critical Care Medicine 11/01/20 Selene Anaya, SANDRA [address] [place] [address] Auto Motor Mechanic Internal Medicine 11/10/22 Batchmaker Relationship Specialty Start Date End Date Jalyn Smith MD [address] [place] [address] PCP - General Family Medicine 01/28/13 Brady Avila MD [address] [place] [place] [address] Pulmonary and Critical Care Medicine 11/01/20 Selene Anaya, SANDRA [address] [place] [address] Auto Motor Mechanic Internal Medicine 11/10/22 Batchmaker Relationship Specialty Start Date End Date Jalyn Smith MD [address] [place] [address] PCP - General Family Medicine 01/28/13 Brady Avila MD [address] [facility], [place] [address]67791 Pulmonary and Critical Care Medicine 11/01/20 Selene Anaya RN [address] [place] [address] Auto Motor Mechanic Internal Medicine 11/10/22 05/14/24 Marjan Ried, FOREIGN FOOD COOK SPECIALTY.REFINERY OPERATOR HELPER [address] [place] [address] Television Operator Family Medicine 05/16/24 Casandra Kinsey, FOREIGN FOOD COOK SPECIALTY.REFINERY OPERATOR HELPER [address] [place] [address] Television Operator Family Medicine 05/16/24 Batchmaker Relationship Specialty Start Date End Date Jalyn Smith MD [address] [place] [address] PCP - General Family Medicine 01/28/13 Brady Avila MD [address] [place] [address] Pulmonary and Critical Care Medicine 11/01/20 Marjan Reid APRN.REFINERY OPERATOR HELPER [address] [place] [address] Television Operator Family Medicine 05/16/24 Casandra Kinsey FOREIGN FOOD COOK SPECIALTY.REFINERY OPERATOR HELPER [address] [place] [address] [facility] 05/16/24 Batchmaker Relationship Specialty Start Date End Date Jalyn Smith MD [address] [place] [address] PCP - General Family Medicine 01/28/13 Brady Avila MD [address] [place] [address] Pulmonary and Critical Care Medicine 11/01/20 Marjan Reid FOREIGN FOOD COOK SPECIALTY.REFINERY OPERATOR HELPER [address] [place] [address] [facility] Medicine 05/16/24 Casandra Kinsey FOREIGN FOOD COOK SPECIALTY.REFINERY OPERATOR HELPER [address] [place] [address] [facility] 05/16/24 Batchmaker Relationship Specialty Start Date End Date Jalyn Smith MD [address] [place] [address] PCP - General Family Medicine 01/28/13 Brady Avila MD [address] [place] [address] Pulmonary and Critical Care Medicine 11/01/20 Marjan Reid APRN.REFINERY OPERATOR HELPER [address] [place] [address] [facility] 05/16/24 Casandra Kinsey APRN.REFINERY OPERATOR HELPER [address] [facility] [address] [facility] 05/16/24 Batchmaker Relationship Specialty Start Date End Date Jalyn Smith MD [address] [facility] [address] PCP - General Family Medicine 01/28/13 Brady Avila MD [address] [place] [address] Pulmonary and Critical Care Medicine 11/01/20 Marjan Reid APRN.REFINERY OPERATOR HELPER [address] [place] [address] [facility] 05/16/24 Casandra Kinsey APRN.REFINERY OPERATOR HELPER [address] [facility] [address] [facility] 05/16/24 Batchmaker Relationship Specialty Start Date End Date Jalyn Smith MD [address] [place] [address] PCP - General Family Medicine 01/28/13 Brady Avila MD [address] [place] [address] Pulmonary and Critical Care Medicine 11/01/20 Marjan Reid APRN.REFINERY OPERATOR HELPER [address] [facility] [place], [place] [address] [facility] 05/16/24 Casandra Kinsey FOREIGN FOOD COOK SPECIALTY.REFINERY OPERATOR HELPER [address] [place] [address] [facility] 05/16/24 Team Status: Inactive Member Role Status Dates Dr. Jalyn Smith MD Primary Care Provider Active Start: August 02, 2024 End: August 02, 2024 Dr. Chin Paul MD Attending Provider Active Start: August 02, 2024 End: August 02, 2024 Dr. Chin Paul MD Referring Provider Active Start: August 02, 2024 End: August 02, 2024 Team Status: Active Member Role Status Dates Dr. Jalyn Smith MD Primary Care Provider Active Team Status: Inactive Member Role Status Dates Dr. Jalyn Smith MD Primary Care Provider Active Start: September 04, 2024 End: September 04, 2024 Dr. Viraj Dozier DO Emergency Provider Active Start: September 04, 2024 End: September 04, 2024 Batchmaker Relationship Specialty Start Date End Date Jalyn Smith MD [address] [facility] [place], [place] [address] PCP - General Family Medicine 01/28/13 Brady Avila MD [address] [place], [place] 26[address] Pulmonary and Critical Care Medicine 11/01/20 Marjan Reid, FOREIGN FOOD COOK SPECIALTY.REFINERY OPERATOR HELPER [address] [facility] [place], [place] [address] [facility] 05/16/24 Casandra Kinsey FOREIGN FOOD COOK SPECIALTY.REFINERY OPERATOR HELPER [address] [facility] [place], [place] [address] [facility] 05/16/24 Batchmaker Relationship Specialty Start Date End Date Jalyn Smith MD [address] [place] [address] PCP - General Family Medicine 01/28/13 Brady Avila MD [address] [place] [address] Pulmonary and Critical Care Medicine 11/01/20 Marjan Reid APRN.REFINERY OPERATOR HELPER [address] [place] [address] Television Operator Family Medicine 05/16/24 Casandra Kinsey APRN.REFINERY OPERATOR HELPER [address] [place] [address] [facility] 05/16/24 Batchmaker Relationship Specialty Start Date End Date Jalyn Smith MD [address] [place] [address] PCP - General Family Medicine 01/28/13 Brady Avila MD [address] [place] [address] Pulmonary and Critical Care Medicine 11/01/20 Marjan Reid FOREIGN FOOD COOK SPECIALTY.REFINERY OPERATOR HELPER [address] [place] [address] [facility] Medicine 05/16/24 Casandra Kinsey APRN.REFINERY OPERATOR HELPER [address] [place] [address] [facility] 05/16/24 Batchmaker Relationship Specialty Start Date End Date Jalyn Smith MD [address] [place] [address] PCP - General Family Medicine 01/28/13 Brady Avila MD [address] [place] [address] Pulmonary and Critical Care Medicine 11/01/20 Marjan Reid, FOREIGN FOOD COOK SPECIALTY.REFINERY OPERATOR HELPER [address] [place] [address] Television Operator Family [facility] 05/16/24 Casandra Kinsey FOREIGN FOOD COOK SPECIALTY.REFINERY OPERATOR HELPER [address] [place] [address] [facility] 05/16/24 Batchmaker Relationship Specialty Start Date End Date Jalyn Smith MD [address] [place] [address] PCP - General Family Medicine 01/28/13 Brady Avila MD [address] [place] [address] Pulmonary and Critical Care Medicine 11/01/20 Marjan Reid, FOREIGN FOOD COOK SPECIALTY.REFINERY OPERATOR HELPER [address] [place] [address] [facility] 05/16/24 Casandra Kinsey FOREIGN FOOD COOK SPECIALTY.REFINERY OPERATOR HELPER [address] [place] [address] [facility] 05/16/24 Batchmaker Relationship Specialty Start Date End Date Jalyn Smith MD [address] [place] [address] PCP - General Family Medicine 01/28/13 Brady Avila MD [address] [place] [address] Pulmonary and Critical Care Medicine 11/01/20 Marjan Reid APRN.REFINERY OPERATOR HELPER [address] [place] [address] [facility] 05/16/24 Casandra Kinsey APRN.REFINERY OPERATOR HELPER [address] [place] [address] [facility] 05/16/24 Batchmaker Relationship Specialty Start Date End Date Jalyn Smith MD [address] [place] [address] PCP - General Family Medicine 01/28/13 Brady Avila MD [address] [place] [address] Pulmonary and Critical Care Medicine 11/01/20 Marjan Reid APRN.REFINERY OPERATOR HELPER [address] [place] [address] [facility] 05/16/24 Casandra Kinsey APRN.REFINERY OPERATOR HELPER [address] [place] [address] [facility] 05/16/24 Batchmaker Relationship Specialty Start Date End Date Jalyn Smith MD [address] [place] [address] PCP - General Family Medicine 01/28/13 Brady Avila MD [address] [place] [address] Pulmonary and Critical Care Medicine 11/01/20 Marjan Reid APRN.REFINERY OPERATOR HELPER [address] [place] [address] [facility] 05/16/24 Casandra Kinsey APRN.REFINERY OPERATOR HELPER [address] [place] [address] [facility] 05/16/24 Batchmaker Relationship Specialty Start Date End Date Jalyn Smith MD [address] [place] [address] PCP - General Family Medicine 01/28/13 Brady Avila MD [address] [place] [address] Pulmonary and Critical Care Medicine 11/01/20 Marjan Reid FOREIGN FOOD COOK SPECIALTY.REFINERY OPERATOR HELPER [address] [place] [address] [facility] 05/16/24 Casandra Kinsey APRN.REFINERY OPERATOR HELPER [address] [place] [address] [facility] 05/16/24 Batchmaker Relationship Specialty Start Date End Date Jalyn Smith MD [address] [place] [address] PCP - General Family Medicine 01/28/13 Brady Avila MD [address] [place] [address] Pulmonary and Critical Care Medicine 11/01/20 Marjan Reid APRN.REFINERY OPERATOR HELPER [address] [place] [address] [facility] 05/16/24 Casandra Kinsey APRN.REFINERY OPERATOR HELPER [address] [place] [address] [facility] 05/16/24 Batchmaker Relationship Specialty Start Date End Date Jalyn Smith MD [address] [place] [address] PCP - General Family Medicine 01/28/13 Brady Avila MD [address] [place] [address] Pulmonary and Critical Care Medicine 11/01/20 Marjan Reid APRN.REFINERY OPERATOR HELPER [address] [place] [address] [facility] 05/16/24 Casandra Kinsey APRN.REFINERY OPERATOR HELPER [address] [place] [address] [facility] 05/16/24 Batchmaker Relationship Specialty Start Date End Date Jalyn Smith MD [address] [place] [address] PCP - General Family Medicine 01/28/13 Brady Avila MD [address] [place] [address] Pulmonary and Critical Care Medicine 11/01/20 Marjan Reid APRN.REFINERY OPERATOR HELPER [address] [place] [address] [facility] 05/16/24 Casandra Kinsey APRN.REFINERY OPERATOR HELPER [address] [place] [address] [facility] 05/16/24 Goals (unrecognized section and content) Goals may be documented in a n alternate sectionGoals may be documented in an alternate sectionGoals may be documented in an alternate sectionGoals may be documented in an alternate sectionGoals may be documented in an alternate sectionGoals may be documented in an alternate sectionGoals may be documented in an alternate sectionGoals may be documented in an alternate sectionGoals may be documented in an alternate sectionGoals may be documented in an alternate sectionGoals may be documented in an alternate sectionGoals may be documented in an alternate sectionGoals may be documented in an alternate sectionGoals may be documented in an alternate section FOR RECORDS PERTAINING TO PATIENTS WHO ARE OR HAVE BEEN ENROLLED IN A CHEMICAL DEPENDENCY/SUBSTANCEABUSE PROGRAM, SOME INFORMATION MAY BE OMITTED. This clinical summary was aggregated from multiple sources. Caution should be exercised in using it in the provision of clinical care. This summary normalizes information from multiple sources, and as a consequence, information in this document may materially change the coding, format and clinical context of patient data. In addition, data may be omitted in some cases. CLINICAL DECISIONS SHOULD BE BASED ON THE PRIMARY CLINICAL RECORDS. [facility]. provides no warranty or guarantee of the accuracy or completeness of information in this document.
[2025-04-24] MEDS: Lidocaine 1% (5 ml sdv) 5 ML Vial IV (01:44)
[2025-04-24] MEDS: fentaNYL 100 MCG/2 ML Ampul IV (01:45)
--- NOTE | 2025-04-24 01:45 | HERN_PTH ---
PATIENT: ENZO VAZQUEZ LOC: [facility] U#:[id number] AGE/SX: 79/F ROOM: [facility] RE04/24/[address]: Dr. Ella Mcghee MD : 1945 BED: 1 DIS: 04/30/2025 SPEC #: [id number] RECD: 04/24/25 07:14 STATUS: JANN REMaricruz #: [id number] AVRIL: 04/24/25 01:[address]: Ella Mcghee DEPT: SURGICAL PATHOLOGY RECD BY: Pete Mondragon ENTERED: 04/24/25 12:04 SP TYPE: Hernia OTHR DR: MD Dr. Roderick Alegria MD Tissues: A - HERNIA Procedures: Surgery Specimen Level II HEADER OPERATION: Diagnostic laparoscopy, incarcerated right femoral hernia PRE-OP DIAGNOSIS: Incarcerated right femoral hernia TISSUE SUBMITTED: A- Femoral hernia sac MICROSCOPIC DIAGNOSIS A. Soft tissue, right femoral hernia repair: * Benign fibromembranous tissue with areas of hemorrhage consistent with hernia sac MICROSCOPIC DESCRIPTION Slides are reviewed. GROSS DESCRIPTION A. Received in formalin labeled with the patient's name and date of . Designated as R femoral hernia sac right is a 6.3 x 3.7 x 3.7 cm portion of jaramillo-yellow to pink-red, soft and lobulated to semimembranous tissue. Tip Fixer sections are submitted in 1 cassette. [place] 04/24/2025 CPT:92623
--- NOTE | 2025-04-24 01:54 | PCM.PRE.AN2 ---
ASA Classification* ASA Classification ASA Classification: 3 and E Assessment & Plan Anesthesia* Anesthesia Assessment Anesthesia Assessment: Discussed sedation and/or anesthesia options, risks, benefits, and alternatives with patient/parents/legal guardian/POA. Questions invited. The patient/parents/legal guardian/POA seems to understand and agrees to proceed with anesthesia plan. Reviewed the physical assessment, medical history, allergy history and patient home medications list prior to surgery/procedure/anesthetic and documented any changes. Performed airway and anesthesia risk assessments. Anesthesia Type Anesthesia Type: General Anesthesia Focused Assessment* Temperature: 97.9 F Pulse Rate: 83 Blood Pressure: 102/78 Respiratory Rate: 19 Pulse Ox: 100 Oxygen Flow Rate (L/min): 3 Airway Assessment Mouth opens: >3 cm Mallampati Score: II Labs Anesthesia Preop lab: CBC WBC, (4.4-11.0) 11.0 K/mm3 04/23/25, 20:25 RBC, (4.2-5.4) 4.64 M/mm3 04/23/25, 20:25 Hgb, (12.0-15.0) 14.4 g/dL 04/23/25, 20:25 Hct, (37-47) 42.6 % 04/23/25, 20:25 Plt Count, (150-450) 273 K/mm3 04/23/25, 20:25 CHEMISTRY Potassium, (3.3-5.1) 3.7 mmol/L 04/23/25, 20:25 Sodium, (133-145) 133 mmol/L 04/23/25, 20:25 Magnesium, (1.6-2.6) 2.2 mg/dL 07/25/21, 04:36 Phosphorus, (2.5-4.9) 3.2 mg/dL 07/25/21, 04:36 BUN, (4-19) 76 mg/dL H 04/23/25, 20:25 Creatinine, (0.70-1.20) 2.15 mg/dL H 04/23/25, 20:25 Glucose, (70-99) 150 mg/dL H 04/23/25, 20:25 POC Glucose, (74-106) 115 mg/dL H 01/02/23, 06:11 COAG PT, (11.7-14.9) 12.9 SECONDS 12/22/18, 17:09 Pre-Assessment Diagnosis/Proposed Procedure Planned Operative Procedure(s): exp lap Anesthesia History 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 When Was Last Pacemaker Check QUESTION #4 FULL TEXT: You/Your Family Experience fever (hyperthermia) with Anesthesia Last Oral Intake Last Oral intake: Last Oral Intake NPO since Meds taken in AM with sips of water? Meds patient instructed to take am of surgery PONV PONV - cable splicer assistant: PONV - cable splicer assistant Female HX of Motion Sickness HX of N/V After Surgery Non-Smoker Duration of Surgery greater than 60 minutes Number of Risk Factors PONV Score Height & Weight Height & Weight: Anesthesia: Height & Weight Height 5 ft 2 in 04/24/25 00:58 Weight: 73.3 kg 04/24/25 00:58 Body Mass Index (BMI) 29.5 04/24/25 00:58 Respiratory Assessment Respiratory Assessment - cable splicer assistant: Respiratory Tract Infection Hx - cable splicer assistant Hx Respiratory Tract Infection No 04/24/25 00:58 STOP Sleep Apnea STOP Sleep Apnea - cable splicer assistant: STOP Sleep Apnea - cable splicer assistant Hx Hypertension Yes 04/24/25 00:58 Hx Sleep Apnea No 04/24/25 00:58 CPAP BIPAP Do you snore loudly (louder No 04/24/25 00:58 than talking or can be heard Do you often feel tired/ No 04/24/25 00:58 fatigued/ sleepy during daytime? Has anyone observed you stop No 04/24/25 00:58 breathing during sleep? STOP Results Negative 04/24/25 00:58 QUESTION #5 FULL TEXT : Do you snore loudly (louder than talking or can be heard through closed doors)? Tobacco Use History Tobacco Use History - cable splicer assistant: Tobacco Use History - cable splicer assistant Tobacco Use Smoking Status Former smoker 04/23/25 19:53 Hx Tobacco Use No 12/15/22 15:53 Years Smoking Packs Smoked per Day Smoking Cessation Date was No - quit smoking greater 04/23/25 19:53 within the last 15 years than 15 years ago Hx Smoking Cessation Date 06/08/99 04/23/25 19:53 Hx Smoking Cessation Counseling Hematologic Medial History Hematologic Hx - cable splicer assistant: Hematologic Medical Hx - translator and interpreter Hx of Blood Transfusion Hx of Transfusion in last 3 Months Date of Last Transfusion (if within last 3 months) Ever experience any problems with transfusion(s)? Specify any problems Hx of Preganancy in last 3 Months Nurse Filling Out Transfusion & Questions: Date: Time: Patient unable to answer at this time (ie. confused, unrespo /Reproduction History /Reproductive History - cable splicer assistant: /Reproductive Hx- cable splicer assistant Hx Now No 04/24/25 00:58 Gestational Age (in weeks): EDC: Hx Hx Para Hx Section SAB No 04/24/25 00:58 Does the father of the baby or his family experience fever w Father of the baby Malignant Hypertension history comment Active Medications Active Medications: Current Medications Generic Name Dose Route Start Last Admin Trade Name Freq PRN Reason Stop Dose Admin Cefotetan Disodium 2 gm/ 100 mls @ 200 mls/hr 04/24/25 01:30 Sodium Chloride IV 04/24/25 01:59 INTRAOP ONE PFSH Medical History Ascending aortic aneurysm Upper GI bleed Aortic dissection, abdominal Weakness Venous stasis ulcer of left lower leg with edema of left lower leg Right knee pain Debility Generalized muscle weakness Edema of both lower extremities Muscle spasm RLS (restless legs syndrome) GERD (gastroesophageal reflux disease) MICHEL (obstructive sleep apnea) Morbid obesity with BMI of 40.0-44.9, adult Degenerative disc disease, lumbar Type 2 diabetes mellitus without complication Osteoarthritis Essential hypertension Fibromyalgia Depression COPD (chronic obstructive pulmonary disease) Home Medications ?Medication ?Instructions ?Recorded ?Last Taken ?Type albuterol sulfate 90 mcg/actuation 2 puff inhalation Q4H PRN Sob &/Or 10/14/18 Unknown History aerosol inhaler Wheezing metformin 500 mg tablet 500 mg PO DAILY Blood sugar 10/14/18 12/10/22 History ropinirole 0.5 mg tablet 1.5 mg PO QHS Restless leg 10/14/18 12/09/22 History Oxygen #1 ea 10/27/18 Unknown History sertraline 50 mg tablet 50 mg PO DAILY Mood 07/25/21 12/10/22 History acetaminophen 500 mg tablet 1,000 mg (2 x 500 mg) PO Q6H PRN 08/07/21 Unknown Rx PRN Pain Score 1-3 #0 tabs gabapentin 100 mg capsule 100 mg PO TIDCM nerve pain 30 days 08/07/21 12/10/22 Rx #90 caps metoprolol succinate 50 mg 50 mg PO DAILY BP/HR 30 days #0 12/15/22 Unknown Rx tablet,extended release 24 hr tabs budesonide 160 mcg-glycopyr 9 2 inh inhalation BID 09/04/24 Unknown History mcg-formot 4.8 mcg/actuation HFA inhaler (Breztri Aerosphere) buprenorphine 7.5 mcg/hour weekly 1 patch transdermal QWEEK 09/04/24 Unknown History transdermal patch hydrochlorothiazide 12.5 mg capsule 12.5 mg PO Q12H 09/04/24 Unknown History oxybutynin chloride 5 mg 5 mg PO DAILY 09/04/24 Unknown History tablet,extended release 24 hr tramadol 50 mg tablet 50 mg PO BID PRN PRN pain 09/04/24 Unknown History baclofen 10 mg tablet 10 mg PO TID 04/23/25 Unknown History ferrous sulfate 325 mg (65 mg PO 04/23/25 Unknown History iron) tablet (FeroSul) Allergy/AdvReac Type Severity Reaction Status Date / Time lisinopril AdvReac Intermediate cough Verified 04/23/25 19:43 pregabalin (From Lyrica) AdvReac Swelling Verified 04/23/25 19:43 Family History Mother Cancer lymphoma Father COPD (chronic obstructive pulmonary disease) Cancer bone Son Heart disease ischemic heart disease Surgical History History of appendectomy History of tonsillectomy History of hysterectomy Social History household members: none Smoking Status: Former smoker how long ago did patient quit smokin.5 years ago alcohol intake: current alcohol intake frequency: holidays/special occasions only substance use type: does not use caffeine: Yes Type: coffee Number of servings: 1 Review of Systems (Anesthesia) ROS Narrative System reviewed and no additional complaints, except as documented.
[2025-04-24 02:26] LABS: Magnesium 2.6 mg/dL (1.5-2.2)
[2025-04-24] MEDS: Lactated Ringers 2,000 ML 2000 ML IV (02:40)
--- NOTE | 2025-04-24 02:47 | PCM.OPRPT ---
Operative Report (Standard) Operative Information Date of Procedure: 04/24/25 Pre-Operative Diagnosis: Small bowel obstruction, incarcerated right femoral hernia Post-Operative Diagnosis: Same Surgery/Procedure Performed: Diagnostic laparoscopy, exploration of right groin repair of femoral hernia with mesh geology instructor: Yes Chemical Lab Technician: Lila Carmona Tasks completed by recruitment and outreach assistant: Opening & closing and Retracting Type of Anesthesia: General/Supplemental RN Documented Start/Stop Times: Operation Date: 04/24/25 01:45 Case Time Anesthesia Start 04/24/25 01:39 Into Room 04/24/25 01:39 Procedure Start 04/24/25 02:04 Procedure End 04/24/25 02:56 Procedure Start Time: 02:04 Procedure Stop Time: 02:56 Select all DRAINS/GRAFTS/IMPLANTS that apply: Prosthetic device Prosthetic device details: Ethicon UltraPro mesh Special Medications: Cefotan 2 g IV x 1 Estimated Blood Loss: <10 cc Specimen collected: Yes Description of specimen(s) removed: Right femoral hernia sac Description of surgery: Indications: 79-year-old female presented to the ER with small bowel obstruction and incarcerated right femoral hernia. Description of procedure: Patient was brought to operating room placed supine operative table. Timeout was completed verifying correct patient, procedure, site, positioning, special, prior to beginning procedure. General anesthesia was induced. Patient's left arm was tucked and padded appropriately. A supraumbilical incision was made with 15 blade scalpel. fascia was elevated and incised under direct visualization. Entry into the abdomen was confirmed visually. Laparoscope was placed. Verifying no injury during initial trocar placement. Patient was placed in Trendelenburg position. Additional 5 mm trocars placed in left mid abdomen under direct visualization. Patient was noted to have distended small bowel going into femoral hernia. An incision was marked in the natural skin crease and planned in the near the pubic tubercle on the right. Skin incision was made with the knife and deepened through the Shraddha and Camper's fascia with electrocautery until the aponeurosis of the external oblique was a identified. Incarcerated right femoral hernia was able to be reduced. This was able to be visualized laparoscopically and found that the bowel was viable. The sac of the left femoral hernia was excised and suture ligated with 2-0 silk suture. Sac was reduced back in the abdomen. Ethicon UltraPro mesh was rolled into a cylinder secured with 2-0 silk. This was placed into the femoral canal secured circumstantially with interrupted 2-0 silk sutures. Hemostasis was again checked. Area was irrigated with saline. Shraddha's fascia was closed with interrupted sutures of 3-0 Vicryl. Skin was closed running subcuticular suture of 4-0 Monocryl with Steri-Strips gauze and Tegaderm. Laparoscopically the bowel was checked again and confirmed to be viable and contents were moving through. The trochars were removed and pneumoperitoneum allowed to escape. The 12 mm trocar site was closed with 0 Vicryl [id number] suture. The skin of the umbilicus was secured to the fascia using 3-0 Vicryl suture interrupted. The incision was closed with 3-0 Vicryl subdermal interrupted sutures and the skin was closed with interrupted 4-0 Monocryl sutures. Steri-Strips and Tegaderm and OpSite were placed over the incision once sterile cotton balls were placed in the umbilicus. Patient was extubated. Patient was noted to have thick yellow sputum this was sent for culture from the ET tube. Patient tolerated procedure well and was taken to the ICU in stable condition. Surgical Findings: See operative report Complications Complications: No
--- NOTE | 2025-04-24 03:04 | PCM.POST.ANE ---
Anesthesia: Postop Eval I Current Vital Signs Temperature: 97.8 F Pulse Rate: 78 Blood Pressure: 120/78 Respiratory Rate: 16 Pulse Ox: 100 Assessment Airway patent: Yes Spontaneous unlabored respirations: Yes nausea: No Vomiting: No Anesthesia Complication: No Fluid Hydration Crystalloid volume administer (ml): 1.5 Total IV fluid infused: 1.5 Progress Note Anesthesia document: Postop Eval 1 completed: Yes
--- NOTE | 2025-04-24 03:05 | PCM.POSTANE2 ---
Anesthesia Postop Eval I Sum Postop Eval Completion status Anesthesia document: Postop Eval 1 completed: Yes Anesthesia Postop Eval I Summary Anesthesia Postop Eval I Summary: Anesthesia Postop Eval I: Assessment Summary Airway patent Yes 04/24/25 03:04 Spontaneous unlabored Yes 04/24/25 03:04 respirations Mental status nausea No 04/24/25 03:04 Vomiting No 04/24/25 03:04 Anesthesia Postop Eval I: Fluid Summary Crystalloid volume administer 1.5 04/24/25 03:04 (ml) Colloids volume administered ( ml) Blood Product volume administered (ml) Total IV fluid infused 1.5 04/24/25 03:04 Anesthesia Postop Eval I: Summary Notes Anesthesia Complication No 04/24/25 03:04 Anesthesia Complication Comment: Post-operative progress note Anesthesia: Postop Eval II Evaluation Mental status: Awake Pain Level: 0 nausea: No Vomiting: No
[2025-04-24] MEDS: 0.9% Saline Lock 10 ML Syringe IV (04:22)
[2025-04-24] MEDS: Dext 5%-0.45% NS 1,000 ML 150 ML IV (04:22)
[2025-04-24] MEDS: Piperacil/Tazobactam 3.375 GM in 0.9% Normal Saline (50mL MB+) 50 ML IV ×3 (04:29→21:01)
[2025-04-24] MEDS: Insulin Lispro 100 UNIT in 0.9% Normal Saline (100mL Bag) 99 ML CONT INF (04:30)
[2025-04-24] MEDS: 0.9% Normal Saline (250mL Bag) 250 ML 15 ML IV (04:43)
[2025-04-24 06:18] LABS: Hematocrit 33.8 % (37-47); Hemoglobin 10.9 g/dL (12.0-15.0); Immature Granulocytes Count 0.050 X10^3/uL (0.0-0.0); Mean Corp Hgb Conc 32.2 g/dL (32-36); Mean Corpuscular Volume 94.2 fL (81-99); Mean Platelet Vol. 9.9 fl (6.2-12.0); NRBC Flagged by Analyzer 0 % (0-5); POSITIVE COUNT YES; POSITIVE DIFFERENTIAL YES; RBC Distribution Width CV 12.7 % (11.6-14.6); RBC Distribution Width SD 44.1 fl (35.1-43.9); Red Blood Count 3.59 M/mm3 (4.2-5.4); White Blood Count 9.5 K/mm3 (4.4-11.0)
[2025-04-24 06:35] LABS: Magnesium 2.3 mg/dL (1.5-2.2)
[2025-04-24 06:41] LABS: Anion Gap 15 (5-15); BUN 64 mg/dL (4-19); BUN/Creat Ratio 36.7 RATIO (10-20); Calcium,Total 8.5 mg/dL (7.6-11.0); Carbon Dioxide 31.0 mmol/L (21.0-32.0); Chloride 89 mmol/L (98-108); Estimated Creatinine Clearance 24.54 ml/min (50-250); Glucose 139 mg/dL (70-99); Potassium 3.5 mmol/L (3.3-5.1)
[2025-04-24 06:45] LABS: Differential Comment SCANNED; Red Cell Morphology NORM C+C NORMAL (NORM C&C)
[2025-04-24] MEDS: Budesonide Respules 0.5 MG/2 ML AMPUL.NEB. INHALATION ×2 (07:04→19:25)
[2025-04-24] MEDS: Albuterol 2.5 MG/3 ML VIAL.NEB. INHALATION (07:04)
--- NOTE | 2025-04-24 07:20 | PCM.HOSP.N ---
Hospitalist Note 79-year-old female history of diabetes, restless leg syndrome, chronic hypoxic respiratory failure on 3 L nasal cannula secondary to COPD, hypertension, chronic pain presented [facility] ED 04/23/2025 due to nausea and vomiting with decreased p.o. intake and decreased bowel movements for [address] abdomen pelvis demonstrated small bowel obstruction versus inguinal incarcerated hernia. NG tube placed in the ED and general surgery contacted for admission. Consult placed to hospitalist. Patient evaluated today at bedside, very tired and resting comfortably, most recent glucose 85. NG in place. Systolic blood pressure in the 90s so gabapentin and metoprolol were held. # Small bowel obstruction -Went to the OR early in the a.m. 04/24/2025 and had diagnostic lap with exploration of right groin repair of femoral hernia with mesh - Management per surgery # CATHI - Creatinine on presentation 2.15 up from 1.07 earlier this year - Improving with IV fluids/supportive care, creatinine 1.74 today - Avoid nephrotoxic agents -Holding home hydrochlorothiazide # Chronic hypoxic respiratory failure secondary to COPD -Reportedly on 3 L home O2 -Resume inhalers -Will need incentive spirometer postoperatively #Type 2 diabetes mellitus -Was placed on insulin drip and glucose perioperatively suspect secondary to elevated beta hydroxybutyrate and continued n.p.o. status -Elevated beta-hydroxybutyrate may have been due to starvation ketosis given patient's poor p.o. intake for days leading up to presentation given her nausea and vomiting -If repeat lab work without gap or evidence of significant acidosis will likely be able to hold the insulin drip and D5 - Transition to sliding scale insulin when tolerated -Remains n.p.o. at this time - Hold home metformin #abn UA -ucx sent -On zosyn empirically #Chronic pain -Patient has buprenorphine patch -Home Baclofen and gabapentin ordered - Supportive care #Hypertension - As needed IV hydralazine - Home p.o. metoprolol continued w/ holding parameters - Hold home hydrochlorothiazide # Restless leg syndrome - Requip as tolerated #Depression/anxiety - Zoloft as tolerated #DVT ppx: SCDs Angle Latham MD
--- NOTE | 2025-04-24 09:03 | PCM.PN.SRG ---
Subjective Subjective Patient evaluated resting comfortably in bed. She notes her pain is much improved since admission. She denies any nausea, vomiting. She denies any flatus or BM. NG tube intact with notable output of 200 of dark brown fluid within the NG canister. Objective Data Objective Data Vital Signs: Vital Signs Temp Pulse Resp BP Pulse Ox O2 Del Method O2 Flow Rate 97.7 F L 106 H 22 H 102/53 L 95 Nasal Cannula 5 04/24/25 06:00 04/24/25 07:09 04/24/25 07:09 04/24/25 06:00 04/24/25 07:09 04/24/25 07:09 04/24/25 07:09 Oxygen Flow Rate (L/min) 5 Oxygen Delivery Method Nasal Cannula Weight: 166 lb 0.129 oz Body Mass Index (BMI) 32.4 Intake & Output: Intake and Output for Last 24 Hours 04/22/25 04/23/25 04/24/25 23:59 23:59 23:59 Intake Total 1035 / 1035 1061.10 / 1061.10 Output Total 650 / 650 Balance 1035 / 1035 411.10 / 411.10 Lab / Micro Data 04/24/25 05:58 04/24/25 10:20 Labs: Laboratory Results - last 24 hr 04/23/25 20:25: WBC 11.0, RBC 4.64, Hgb 14.4, Hct 42.6, MCV 91.8, MCH 31.0, MCHC 33.8, RDW Std Deviation 43.0, RDW Coeff of Stephenie 12.9, Plt Count 273, MPV 10.8, Immature Gran % (Auto) 0.500, Neut % (Auto) 86.9 H, Lymph % (Auto) 2.2 L, Hubbard % (Auto) 9.4, Eos % (Auto) 0.5, Baso % (Auto) 0.5, Absolute Neuts (auto) 9.6 H, Absolute Lymphs (auto) 0.24 L, Nucleated RBC % 0.2, Sodium 133, Potassium 3.7, Chloride 78 L, Carbon Dioxide 32.9 H, Anion Gap 22 H, BUN 76 H, Creatinine 2.15 H, Estim Creat Clear Calc 20.54 L, Est GFR (MDRD) Non-Af 23 L, BUN/Creatinine Ratio 35.3 H, Glucose 150 H, Lactic Acid 1.8, Calcium 10.3, Phosphorus 5.2 H, Magnesium 2.6 H, Total Bilirubin 0.94, AST 28, ALT 8, Alkaline Phosphatase 86, Total Protein 7.8, Albumin 4.5, Globulin 3.3, Albumin/Globulin Ratio 1.4, Amylase 46, Lipase 32, b-Hydroxybutyric mmol/L 2.5 H, Blood Type A POSITIVE, Antibody Screen NEGATIVE 04/23/25 23:00: Urine Color Yellow, Urine Clarity Clear, Urine pH 5.0, Ur Specific [place] 1.015, Urine Protein 30 H, Urine Glucose (UA) Normal, Urine Ketones 15 H, Urine Occult Blood 25 H, Urine Nitrite Negative, Urine Bilirubin Negative, Urine Urobilinogen Normal, Ur Leukocyte Esterase Negative, Urine RBC 0-5 SEEN, Urine WBC 0 SEEN, Ur Squamous Epith Cells 5-10 SEEN, Amorphous Sediment 2+, Urine Bacteria 3+, Urine Mucus 1+ 04/24/25 01:23: POC Glucose 95 04/24/25 04:08: POC Glucose 89 04/24/25 05:33: POC Glucose 107 H 04/24/25 05:58: WBC 9.5, RBC 3.59 L, Hgb 10.9 L, Hct 33.8 L, MCV 94.2, MCH 30.4, MCHC 32.2, RDW Std Deviation 44.1 H, RDW Coeff of Stephenie 12.7, Plt Count , MPV 9.9, Immature Gran % (Auto) 0.500, Neut % (Auto) 91.9 H, Lymph % (Auto) 3.0 L, Hubbard % (Auto) 4.1, Eos % (Auto) 0.2, Baso % (Auto) 0.3, Absolute Neuts (auto) 8.7 H, Absolute Lymphs (auto) 0.28 L, Nucleated RBC % 0, Differential Comment SCANNED, Platelet Estimate ADEQUATE, Plt Morphology Comment CLUMPED, RBC Morphology NORM C+C, Sodium 135, Potassium 3.5, Chloride 89 L, Carbon Dioxide 31.0, Anion Gap 15, BUN 64 H, Creatinine 1.74 H, Estim Creat Clear Calc 24.54 L, Est GFR (MDRD) Non-Af 30 L, BUN/Creatinine Ratio 36.7 H, Glucose 139 H, Hemoglobin A1c 5.2, Calcium 8.5, Phosphorus 3.9, Magnesium 2.3 H 04/24/25 07:55: POC Glucose 97 Radiography Diagnostic Testing: Radiology Impression Abdomen/Pelvis CT 04/23/25 22:33 IMPRESSION: Moderate partial small bowel obstruction. Transition zone in the right inguinal hernia, possibly secondary to incarceration. No evidence of bowel perforation or pneumatosis intestinalis. Unchanged partially calcified descending thoracic aortic aneurysm extending to the abdomen. Bilateral basilar atelectatic pulmonary changes. Bilateral basilar multifocal ground-glass densities of the lungs, probably pneumonia. Prior appendectomy. Uncomplicated colonic diverticulosis. Bilateral scattered simple renal cysts are noted with the largest measuring 3.5 cm. Prior hysterectomy. Moderate diffuse spondylosis. Scattered chronic pancreatic calcifications are noted. I discussed the findings with Dr. Miguel Hilliard in ED at 3:10 a.m. EST. Reading Location: [place] [address] KUB X-Ray 04/23/25 23:59 IMPRESSION: Mild bilateral basilar atelectatic changes/infiltrates. Enteric feeding tube is in good position with its tip at the level of the gastric body. Diffuse distention of the bowels, probably secondary to bowel obstruction. Reading Location: [place] [address] Rhythm Strip Rhythm Strip: Sinus Rhythm Rate: 94 Ectopy: None Physical Exam HEENT HEENT Narrative: NG tube- intact with dark brown liquid output. Approximately 200 in the canister GI GI Narrative: Abdomen- soft, nontender. Incisions c/d/i. No erythema or infection noted. Hypoactive bowel sounds. Assessment & Plan Assessment/Plan (1) Incarcerated femoral hernia: PLAN: I am following this patient in conjunction with Dr. Mcghee. She will independently evaluate this patient. Labs reviewed. Continue with NG tube to suction. Will await bowel function until able to be removed Repeat BMP shows creatinine bumped up slightly to 1.77, therefore increase fluids back to 150 for today Would like patient to continue to be observed in the unit for today dn likely transfer out tomorrow Patient is on chronic oxygen via nasal canula Patient slightly more lethargic this morning, however patient has been up all night Limit narcotic to help with alertness Later this afternoon, patient may get up to a chair We will continue to monitor this patient closely Charges/Coding Visit Charges Inpatient E&M: 76667 Subs Hosp L1 (post-op; no charge)
[2025-04-24] MEDS: Potassium Chloride 10mEq/100mL 10 MEQ/100 ML IV.SOLN. 100 MEQ IV BOLUS ×2 (09:40→11:39)
--- NOTE | 2025-04-24 10:30 | CASEMGMT ---
Social Work SW called the daughter Rin regarding POA/LW paperwork and left a message. JONEL Verde
--- NOTE | 2025-04-24 11:16 | CASEMGMT ---
SANDRA SALGADO Assessment Face to Face with patient for initial transition planning/care coordination assessment. RN NAOMI introduced self and role at [facility], pt voices understanding. Pt is A&Ox4 and is resting comfortably in bed and is calm. Pt has an NG tube in place but is able to answer all of this telegraphic typewriter repairer's questions appropriately. Care providers, pharmacy, and demographics verified. Admitting dx: SBO due to Incarcerated Hernia LACE Strata: 2 PCP: Roderick Ryder Specialists: [facility], Humberto (PM) Preferred Pharmacy: [facility] Insurance: [employer] [facility] Prescription Benefit: Yes LNOK: Rin (Daughter), Beba (Daughter) Living Arrangements: Pt lives alone in a single story home with one step to enter ADLs/IADLs: Pt states that she is indep at baseline. Current 6-Click score is 16 and PT is pending Transportation: Pt states that she does not drive and that her daughters drive her DME: Home oxygen through [employer] (Verified pt's current orders states 3L Cont via [place]). Pt states that she has a concentrator, POC (Daughter can bring in at DC if needed), portable tanks, and a pulse ox. Pt states that she has a functioning BGM with sufficient testing supplies including lancets, test strips, and EtOH swabs.?Pt also reports that she has a FWW, shower chair, and grab bars. HHC/SNF: Reports HH history but cannot recall the name of the agency. Denies SNF history Pt?s goal: Home Plan: TBD. Anticipate home with HHC once medically ready. Pt states that she is unsure of what she will need or want at the time of DC. CM to follow PT evaluation and progression during hospital stay and follow up for safe DC planning. Pt denies further questions or concerns this time.CM to follow. Sanjay Glasgow RN, CM
--- NOTE | 2025-04-24 11:37 | CASEMGMT ---
Social Work SW spoke with the daughter Beba on the phone. The daughter Beba reported her mother has a LW and POA and she will try to provide a copy to the hospital. JONEL Verde
[2025-04-24 11:53] LABS: Anion Gap 12 (5-15); BUN 64 mg/dL (4-19); BUN/Creat Ratio 36.2 RATIO (10-20); Calcium,Total 8.1 mg/dL (7.6-11.0); Carbon Dioxide 30.6 mmol/L (21.0-32.0); Chloride 91 mmol/L (98-108); Estimated Creatinine Clearance 24.13 ml/min (50-250); Glucose 110 mg/dL (70-99); Potassium 3.8 mmol/L (3.3-5.1)
[2025-04-24] MEDS: 0.9% Normal Saline (1000mL) 1,000 ML 100 ML IV (12:46)
--- NOTE | 2025-04-24 16:15 | CASEMGMT ---
Social Work GABBI is in the patients chart. JONEL Verde
[2025-04-24] MEDS: 0.9% Normal Saline (1000mL) 1,000 ML 150 ML IV (20:01)
[2025-04-25] VITALS (28 sets, daily range): BP systolic 89–169; BP diastolic 54–75; PULSE 92–114; RESP 19–24; TEMP 36.5–36.9; O2SAT 90–100; BMI 32.4
--- NOTE | 2025-04-25 00:04 | PCM.HOSP.N ---
Hospitalist Note Notified by nursing that patient has required D10 x 2 boluses since transitioning from D5 half-normal saline, per insulin drip protocol, to straight NS at 150 mL/h. Patient remains n.p.o. per surgery orders. Due to sodium of 134 and potassium of 3.8 on last BMP drawn, I ordered D5 normal saline with 10 mEq of KCl at 125 mL/h.
[2025-04-25] MEDS: Piperacil/Tazobactam 3.375 GM in 0.9% Normal Saline (50mL MB+) 50 ML IV ×3 (05:22→21:07)
[2025-04-25 05:47] LABS: Hematocrit 28.7 % (37-47); Hemoglobin 9.2 g/dL (12.0-15.0); Immature Granulocytes Count 0.090 X10^3/uL (0.0-0.0); Mean Corp Hgb Conc 32.1 g/dL (32-36); Mean Corpuscular Volume 94.7 fL (81-99); Mean Platelet Vol. 9.6 fl (6.2-12.0); NRBC Flagged by Analyzer 0 % (0-5); POSITIVE DIFFERENTIAL YES; Platelet Count 179 K/mm3 (150-450); RBC Distribution Width CV 13.2 % (11.6-14.6); RBC Distribution Width SD 45.1 fl (35.1-43.9); Red Blood Count 3.03 M/mm3 (4.2-5.4); White Blood Count 8.2 K/mm3 (4.4-11.0)
[2025-04-25 06:31] LABS: Anion Gap 8 (5-15); BUN 45 mg/dL (4-19); BUN/Creat Ratio 33.3 RATIO (10-20); Calcium,Total 7.8 mg/dL (7.6-11.0); Carbon Dioxide 32.5 mmol/L (21.0-32.0); Chloride 98 mmol/L (98-108); Estimated Creatinine Clearance 31.63 ml/min (50-250); Glucose 171 mg/dL (70-99); Potassium 2.7 mmol/L (3.3-5.1)
[2025-04-25] MEDS: Budesonide Respules 0.5 MG/2 ML AMPUL.NEB. INHALATION ×2 (07:09→20:00)
[2025-04-25] MEDS: Potassium Chloride 10mEq/100mL 10 MEQ/100 ML IV.SOLN. 100 MEQ IV BOLUS ×5 (07:18→18:46)
[2025-04-25] MEDS: Metoprolol(XL)Succ 50 MG Tablet PO (08:00)
[2025-04-25] MEDS: 0.9% Saline Lock 10 ML Syringe IV (08:05)
--- NOTE | 2025-04-25 08:37 | PCM.PN.HOSP ---
Subjective Subjective Reports feeling little bit of pain in her upper chest but it is worse with palpation, still has not passed gas, reports no increase in abdominal pain, does note she feels a little bit more short of breath, does use inhalers at home and reports having a breathing treatment which was somewhat helpful Objective Data Objective Data Vital Signs: Vital Signs Temp Pulse Resp BP Pulse Ox O2 Del Method O2 Flow Rate 97.7 F L 108 H 22 H 116/64 100 Nasal Cannula 5 04/25/25 08:00 04/25/25 08:00 04/25/25 08:00 04/25/25 08:00 04/25/25 07:11 04/25/25 08:00 04/25/25 08:00 Oxygen Flow Rate (L/min) 5 Oxygen Delivery Method Nasal Cannula Weight: 75.3 kg Body Mass Index (BMI) 32.4 Intake & Output: Intake and Output for Last 24 Hours 04/23/25 04/24/25 04/25/25 23:59 23:59 23:59 Intake Total 1035 / 1035 3860.56 / 3890.56 1820.83 / 1820.83 Output Total 2150 / 2150 775 / 775 Balance 1035 / 1035 1710.56 / 1740.56 1045.83 / 1045.83 Lab / Micro Data 04/25/25 05:25 04/25/25 05:25 Labs: Laboratory Results - last 24 hr 04/24/25 06:31: POC Glucose 110 H 04/24/25 09:25: POC Glucose 85 04/24/25 10:20: Sodium 134, Potassium 3.8, Chloride 91 L, Carbon Dioxide 30.6, Anion Gap 12, BUN 64 H, Creatinine 1.77 H, Estim Creat Clear Calc 24.13 L, Est GFR (MDRD) Non-Af 29 L, BUN/Creatinine Ratio 36.2 H, Glucose 110 H, Calcium 8.1 04/24/25 10:40: POC Glucose 112 H 04/24/25 11:42: POC Glucose 91 04/24/25 17:43: POC Glucose 65 L 04/24/25 18:31: POC Glucose 94 04/24/25 23:47: POC Glucose 60 L 04/25/25 00:31: POC Glucose 84 04/25/25 05:25: WBC 8.2, RBC 3.03 L, Hgb 9.2 L, Hct 28.7 L, MCV 94.7, MCH 30.4, MCHC 32.1, RDW Std Deviation 45.1 H, RDW Coeff of Stephenie 13.2, Plt Count 179, MPV 9.6, Immature Gran % (Auto) 1.100 H, Neut % (Auto) 85.2 H, Lymph % (Auto) 3.4 L, [place] % (Auto) 9.2, Eos % (Auto) 0.9, Baso % (Auto) 0.2, Absolute Neuts (auto) 7.0, Absolute Lymphs (auto) 0.28 L, Nucleated RBC % 0, Sodium 138, Potassium 2.7 L*, Chloride 98, Carbon Dioxide 32.5 H, Anion Gap 8, BUN 45 H, Creatinine 1.35 H, Estim Creat Clear Calc 31.63 L, Est GFR (MDRD) Non-Af 40 L, BUN/Creatinine Ratio 33.3 H, Glucose 171 H, Calcium 7.8 04/25/25 05:28: POC Glucose 148 H Micro: Microbiology 04/24/25 Unknown Transtracheal Aspirate Gram Stain - Final Rhythm Strip Rhythm Strip: Sinus Rhythm Rate: 94 Ectopy: None Physical Exam Narrative General: Alert, answers questions appropriately HEENT: Atraumatic, normocephalic Eyes: Anicteric, normal conjunctiva, extraocular movements grossly intact Neck: Supple Respiratory: Diminished bilaterally, slightly tachypneic Cardiovascular: Low-grade sinus tachycardia GI: Denies any changes Extremities: No edema Musculoskeletal: Moving all extremities Neuro: No overt focal neurological deficits Skin: No rashes appreciated Psych: Cooperative Assessment & Plan Assessment/Plan (1) Incarcerated femoral hernia: PLAN: Plan 79-year-old female history of diabetes, restless leg syndrome, chronic hypoxic respiratory failure on 3 L nasal cannula secondary to COPD, hypertension, chronic pain presented [facility] ED 04/23/2025 due to nausea and vomiting with decreased p.o. intake and decreased bowel movements for [address] abdomen pelvis demonstrated small bowel obstruction versus inguinal incarcerated hernia. NG tube placed in the ED and general surgery contacted for admission. Consult placed to hospitalist. Patient evaluated today at bedside, very tired and resting comfortably, most recent glucose 85. NG in place. Systolic blood pressure in the 90s so gabapentin and metoprolol were held. # Small bowel obstruction -Went to the OR early in the a.m. 04/24/2025 and had diagnostic lap with exploration of right groin repair of femoral hernia with mesh - Management per surgery -04/25: Patient with NG tube in place, reports no gas passed yet # CATHI - Creatinine on presentation 2.15 up from 1.07 earlier this year - Improving with IV fluids/supportive care, creatinine 1.74 today - Avoid nephrotoxic agents -Holding home hydrochlorothiazide -04/25: Improving, creatinine 1.35 today # Hypokalemia -04/25: 2.7 this a.m., will replete and times repeat # Chronic hypoxic respiratory failure secondary to COPD -Reportedly on 3 L home O2 -Resume inhalers -Will need incentive spirometer postoperatively -04/25: Reports some increased shortness of breath today, reports some improvement with breathing treatment, will obtain chest x-ray just to verify no additional pathology. Did have respiratory culture sent from the OR, culture pending. Not having productive cough. Does report some upper chest discomfort after her surgery on presentation however it was reproducible on palpation #Type 2 diabetes mellitus -Was placed on insulin drip and glucose perioperatively suspect secondary to elevated beta hydroxybutyrate and continued n.p.o. status -Elevated beta-hydroxybutyrate may have been due to starvation ketosis given patient's poor p.o. intake for days leading up to presentation given her nausea and vomiting -If repeat lab work without gap or evidence of significant acidosis will likely be able to hold the insulin drip and D5 - Transition to sliding scale insulin when tolerated -Remains n.p.o. at this time - Hold home metformin -04/25: When patient was taken off of D5 and insulin drip she required D10 twice due to low glucose, she has been started back on D5 with potassium, continue present management #abn UA -ucx sent -On zosyn empirically -04/25: Urine culture still pending #Chronic pain -Patient has buprenorphine patch -Home Baclofen and gabapentin ordered - Supportive care -04/25: Patient's buprenorphine patch was continued as was her home baclofen and gabapentin #Hypertension - As needed IV hydralazine - Home p.o. metoprolol continued w/ holding parameters - Hold home hydrochlorothiazide -04/25: Has been on the low side, decreased metoprolol, holding home hydrochlorothiazide # Restless leg syndrome - Requip as tolerated -04/25: Home medications continued, therapeutic interchange to Mirapex #Depression/anxiety - Zoloft as tolerated -04/25: Continue home Zoloft as able #DVT ppx: SCDs Angle Latham MD Charges/Coding Visit Charges Inpatient E&M: 43828 Subs Hosp L2
--- NOTE | 2025-04-25 08:50 | RAD_ITS ---
PROCEDURE: CHEST 1 VIEW (PORTABLE) 04/25/2025 REASON FOR EXAM: SOB, TACHYPNEA TECHNIQUE: Frontal view of the chest. COMPARISON: December 10, 2022 FINDINGS: There is an enteric tube seen with its tip in the stomach. Heart size and mediastinal configuration are within normal limits. There is no focal infiltrate or consolidation. There is no pneumothorax or effusion. Aortic calcifications are visible. There is no acute bony abnormality. RAD/Chest 1 View (Portable) IMPRESSION: Tube in position. Reading Location: [facility]
--- NOTE | 2025-04-25 11:19 | PCM.PN.SRG ---
Subjective Subjective Patient evaluated resting comfortably in bed. She denies any abdominal pain. NG tube intact with dark brown output. NG put out 75 cc over night. Negative flatus or BM. Objective Data Objective Data Vital Signs: Vital Signs Temp Pulse Resp BP Pulse Ox O2 Del Method O2 Flow Rate 97.7 F L 108 H 22 H 116/64 100 Nasal Cannula 5 04/25/25 08:00 04/25/25 08:00 04/25/25 08:00 04/25/25 08:00 04/25/25 07:11 04/25/25 08:00 04/25/25 08:00 Oxygen Flow Rate (L/min) 5 Oxygen Delivery Method Nasal Cannula Weight: 166 lb 0.129 oz Body Mass Index (BMI) 32.4 Intake & Output: Intake and Output for Last 24 Hours 04/23/25 04/24/25 04/25/25 23:59 23:59 23:59 Intake Total 1035 / 1035 3860.56 / 3890.56 2176.33 / 2176.33 Output Total 2150 / 2150 775 / 775 Balance 1035 / 1035 1710.56 / 1740.56 1401.33 / 1401.33 Lab / Micro Data 04/25/25 05:25 04/25/25 05:25 Labs: Laboratory Results - last 24 hr 04/24/25 06:31: POC Glucose 110 H 04/24/25 10:20: Sodium 134, Potassium 3.8, Chloride 91 L, Carbon Dioxide 30.6, Anion Gap 12, BUN 64 H, Creatinine 1.77 H, Estim Creat Clear Calc 24.13 L, Est GFR (MDRD) Non-Af 29 L, BUN/Creatinine Ratio 36.2 H, Glucose 110 H, Calcium 8.1 04/24/25 11:42: POC Glucose 91 04/24/25 17:43: POC Glucose 65 L 04/24/25 18:31: POC Glucose 94 04/24/25 23:47: POC Glucose 60 L 04/25/25 00:31: POC Glucose 84 04/25/25 05:25: WBC 8.2, RBC 3.03 L, Hgb 9.2 L, Hct 28.7 L, MCV 94.7, MCH 30.4, MCHC 32.1, RDW Std Deviation 45.1 H, RDW Coeff of Stephenie 13.2, Plt Count 179, MPV 9.6, Immature Gran % (Auto) 1.100 H, Neut % (Auto) 85.2 H, Lymph % (Auto) 3.4 L, [place] % (Auto) 9.2, Eos % (Auto) 0.9, Baso % (Auto) 0.2, Absolute Neuts (auto) 7.0, Absolute Lymphs (auto) 0.28 L, Nucleated RBC % 0, Sodium 138, Potassium 2.7 L*, Chloride 98, Carbon Dioxide 32.5 H, Anion Gap 8, BUN 45 H, Creatinine 1.35 H, Estim Creat Clear Calc 31.63 L, Est GFR (MDRD) Non-Af 40 L, BUN/Creatinine Ratio 33.3 H, Glucose 171 H, Calcium 7.8 04/25/25 05:28: POC Glucose 148 H Micro: Microbiology 04/24/25 Unknown Transtracheal Aspirate Gram Stain - Final 04/24/25 Unknown Transtracheal Aspirate Respiratory Culture - Preliminary 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 Reading [facility] Rhythm Strip Rhythm Strip: Sinus Rhythm Rate: 94 Ectopy: None Physical Exam GI GI Narrative: Abdomen- soft, slightly distended. Hypoactive bowel sounds. Incisions c/d/i. Slight drainage from the right groin incision, expected. Assessment & Plan Assessment/Plan (1) Incarcerated femoral hernia: PLAN: I am following this patient in conjunction with Dr. Zuniga. He has independently evaluated this patient. Labs reviewed. Hospitalist replenishing potassium Patient placed back on D5 Continue NG tube until bowel function Patient states she sleeps because she is bored Encourage ambulation and I.S. or breathing treatments Continue gonzales at this time until patient is more alert Likely stay in unit today. Hopeful transfer out to regular floor tomorrow We will continue to monitor this patient Charges/Coding Visit Charges Inpatient E&M: 14263 Subs Hosp L1 (no charge; post- op)
--- NOTE | 2025-04-25 11:50 | RAD_ITS ---
PROCEDURE: ABDOMEN SINGLE VIEW 04/25/2025 REASON FOR EXAM: ABD SURGERY TECHNIQUE: Procedure Code: RADABD Modality: DX Procedure: ABDOMEN SINGLE VIEW COMPARISON: 04/24/2025 radiograph. 04/23/2025 CT. FINDINGS: Dilated loops of small bowel measuring up to 4.2 cm in keeping with known small bowel obstruction. The lung bases are clear. No suspicious calcifications. Orogastric tube with tip terminating in the mid gastric body. RAD/Abdomen Single View IMPRESSION: Dilated loops of bowel in keeping with small bowel obstruction. Reading Location: [id number]
[2025-04-25 15:16] LABS: Anion Gap 10 (5-15); BUN 35 mg/dL (4-19); BUN/Creat Ratio 30.8 RATIO (10-20); Calcium,Total 8.1 mg/dL (7.6-11.0); Carbon Dioxide 29.5 mmol/L (21.0-32.0); Chloride 97 mmol/L (98-108); Estimated Creatinine Clearance 37.14 ml/min (50-250); Glucose 185 mg/dL (70-99); Potassium 2.8 mmol/L (3.3-5.1)
[2025-04-25 18:14] LABS: Magnesium 2.2 mg/dL (1.5-2.2)
[2025-04-25 21:48] LABS: Anion Gap 10 (5-15); Carbon Dioxide 29.3 mmol/L (21.0-32.0); Chloride 99 mmol/L (98-108); Potassium 3.1 mmol/L (3.3-5.1)
--- NOTE | 2025-04-25 21:57 | PCM.HOSP.N ---
Hospitalist Note Electrolyte panel repeated post KCl replacement, K 3.1, Na 138, Cl 99. Pt remains NPO, serum glucose maintaining. Continue D5NS @125ml/hr, increased KCL in fluid to 40meq.
[2025-04-25] MEDS: Potassium Chloride 40 MEQ in Dextrose 5%/0.9% NaCl 1,000 ML 125 MEQ IV (22:57)
[2025-04-26] VITALS (13 sets, daily range): BP systolic 103–158; BP diastolic 60–99; PULSE 85–116; RESP 14–24; TEMP 36.3–37.3; O2SAT 93–100; BMI 32.8
[2025-04-26 03:45] LABS: Hematocrit 26.2 % (37-47); Hemoglobin 8.1 g/dL (12.0-15.0); Immature Granulocytes Count 0.150 X10^3/uL (0.0-0.0); Mean Corp Hgb Conc 30.9 g/dL (32-36); Mean Corpuscular Volume 97.8 fL (81-99); Mean Platelet Vol. 9.0 fl (6.2-12.0); NRBC Flagged by Analyzer 0 % (0-5); POSITIVE DIFFERENTIAL YES; Platelet Count 156 K/mm3 (150-450); RBC Distribution Width CV 13.2 % (11.6-14.6); RBC Distribution Width SD 46.8 fl (35.1-43.9); Red Blood Count 2.68 M/mm3 (4.2-5.4); White Blood Count 6.8 K/mm3 (4.4-11.0)
[2025-04-26] MEDS: Piperacil/Tazobactam 3.375 GM in 0.9% Normal Saline (50mL MB+) 50 ML IV (05:30)
[2025-04-26 06:30] LABS: Anion Gap 7 (5-15); BUN 26 mg/dL (4-19); BUN/Creat Ratio 25.0 RATIO (10-20); Calcium,Total 8.1 mg/dL (7.6-11.0); Carbon Dioxide 30.4 mmol/L (21.0-32.0); Chloride 102 mmol/L (98-108); Estimated Creatinine Clearance 42.13 ml/min (50-250); Glucose 147 mg/dL (70-99); Potassium 3.3 mmol/L (3.3-5.1)
[2025-04-26] MEDS: Potassium Chloride 40 MEQ in Dextrose 5%/0.9% NaCl 1,000 ML 125 MEQ IV ×3 (06:57→23:54)
[2025-04-26] MEDS: Budesonide Respules 0.5 MG/2 ML AMPUL.NEB. INHALATION ×2 (07:07→19:53)
[2025-04-26] MEDS: Cefepime HCl 2 GM in 0.9% Normal Saline (100mL MB+) 100 ML IV ×2 (09:51→21:03)
--- NOTE | 2025-04-26 14:47 | NURSING ---
Per Dr Cordon Thompson and NG tube D/c. removed without difficulty
--- NOTE | 2025-04-26 16:27 | PCM.PN.HOSP ---
Subjective Subjective Beginning to feel better, started passing some gas, breathing improving, about to try to have a bowel movement, no other new or acute complaints Objective Data Objective Data Vital Signs: Vital Signs Temp Pulse Resp BP Pulse Ox O2 Del Method O2 Flow Rate 98.4 F 111 H 19 H 131/73 H 98 Nasal Cannula 3 04/26/25 13:50 04/26/25 13:50 04/26/25 13:50 04/26/25 13:50 04/26/25 13:50 04/26/25 15:16 04/26/25 15:16 Oxygen Flow Rate (L/min) 3 Oxygen Delivery Method Nasal Cannula Weight: 76.204 kg Body Mass Index (BMI) 32.8 Intake & Output: Intake and Output for Last 24 Hours 04/24/25 04/25/25 04/26/25 23:59 23:59 23:59 Intake Total 3860.56 / 3890.56 4370.50 / 4370.50 2292.08 / 2292.08 Output Total 2150 / 2150 2375 / 2825 1950 / 1950 Balance 1710.56 / 1740.56 1995.50 / 1545.50 342.08 / 342.08 Lab / Micro Data 04/26/25 03:35 04/26/25 04:15 Labs: Laboratory Results - last 24 hr 04/25/25 14:43: Magnesium 2.2 04/25/25 17:49: POC Glucose 129 H 04/25/25 21:15: Sodium 138, Potassium 3.1 L, Chloride 99, Carbon Dioxide 29.3, Anion Gap 10 04/25/25 23:08: POC Glucose 132 H 04/26/25 03:35: WBC 6.8, RBC 2.68 L, Hgb 8.1 L, Hct 26.2 L, MCV 97.8, MCH 30.2, MCHC 30.9 L, RDW Std Deviation 46.8 H, RDW Coeff of Stephenie 13.2, Plt Count 156, MPV 9.0, Immature Gran % (Auto) 2.200 H, Neut % (Auto) 80.3 H, Lymph % (Auto) 5.9 L, [place] % (Auto) 9.1, Eos % (Auto) 2.2, Baso % (Auto) 0.3, Absolute Neuts (auto) 5.5, Absolute Lymphs (auto) 0.40 L, Nucleated RBC % 0, Sodium Cancelled, Potassium Cancelled, Chloride Cancelled, Carbon Dioxide Cancelled, Anion Gap Cancelled, BUN Cancelled, Creatinine Cancelled, Estim Creat Clear Calc Cancelled, Est GFR (MDRD) Non-Af Cancelled, BUN/Creatinine Ratio Cancelled, Glucose Cancelled, Calcium Cancelled 04/26/25 04:15: Sodium 139, Potassium 3.3, Chloride 102, Carbon Dioxide 30.4, Anion Gap 7, BUN 26 H, Creatinine 1.02, Estim Creat Clear Calc 42.13 L, Est GFR (MDRD) Non-Af 57 L, BUN/Creatinine Ratio 25.0 H, Glucose 147 H, Calcium 8.1 04/26/25 04:22: POC Glucose 113 H 04/26/25 11:45: POC Glucose 125 H Micro: Microbiology 04/23/25 23:00 Urine, Clean Catch Urine Culture - Final Yeast, not Lilia albicans 04/24/25 Unknown Transtracheal Aspirate Gram Stain - Final 04/24/25 Unknown Transtracheal Aspirate Respiratory Culture - Preliminary Citrobacter freundii Gram negative darrick Rhythm Strip Rhythm Strip: Sinus Rhythm Rate: 94 Ectopy: None Physical Exam Narrative General: Alert HEENT: Atraumatic, NG tube in place Eyes: Anicteric, normal conjunctiva, extraocular movements grossly intact Neck: Supple Respiratory: No respiratory distress, lung sounds improving Cardiovascular: Intermittently will have some low-grade sinus tachycardia when moving GI: No severe tenderness Extremities: No significant peripheral edema Musculoskeletal: Moving all extremities Neuro: No overt focal neurological deficits Skin: No rashes appreciated Psych: Cooperative Assessment & Plan Assessment/Plan (1) Incarcerated femoral hernia: PLAN: Plan 79-year-old female history of diabetes, restless leg syndrome, chronic hypoxic respiratory failure on 3 L nasal cannula secondary to COPD, hypertension, chronic pain presented [facility] ED 04/23/2025 due to nausea and vomiting with decreased p.o. intake and decreased bowel movements for [address] abdomen pelvis demonstrated small bowel obstruction versus inguinal incarcerated hernia. NG tube placed in the ED and general surgery contacted for admission. Consult placed to hospitalist. # Small bowel obstruction -Went to the OR early in the a.m. 04/24/2025 and had diagnostic lap with exploration of right groin repair of femoral hernia with mesh - Management per surgery -04/25: Patient with NG tube in place, reports no gas passed yet -04/26: Passing gas, thinks she may be about to have a bowel movement. Management per surgery, at time of evaluation NG tube still in place # CATHI?resolved - Creatinine on presentation 2.15 up from 1.07 earlier this year - Improving with IV fluids/supportive care, creatinine 1.74 today - Avoid nephrotoxic agents -Holding home hydrochlorothiazide -04/25: Improving, creatinine 1.35 today -04/26: Creatinine 1.02 today, CATHI resolved # Hypokalemia -04/25: 2.7 this a.m., will replete and times repeat -04/26: Potassium 3.3, lower limit of normal and given still n.p.o. patient remains on IVF with potassium # Anemia -04/26: Suspect multifactorial, appears previous hemoglobins have been around 10.5 range, on presentation hemoglobin 14.4 but this was likely due to hemoconcentration given patient's presenting complaint. Postsurgery hemoglobin 10.9 and is down trended and today is 8.1. Patient still on IV fluids, suspect that this is dilutional, postoperative, and result of continued blood draws to monitor levels. Repeat in the a.m. and will also add on iron studies. No reported active or ongoing blood loss at this time, continue to monitor. Overall patient improving # Chronic hypoxic respiratory failure secondary to COPD -Reportedly on 3 L home O2 -Resume inhalers -Will need incentive spirometer postoperatively -04/25: Reports some increased shortness of breath today, reports some improvement with breathing treatment, will obtain chest x-ray just to verify no additional pathology. Did have respiratory culture sent from the OR, culture pending. Not having productive cough. Does report some upper chest discomfort after her surgery on presentation however it was reproducible on palpation -04/26: Yesterday patient did have some increased shortness of breath improved with breathing treatments, today feeling much better but does have a respiratory specimen growing Citrobacter and another gram-negative darrick, Citrobacter is resistant to Zosyn so she has been switched to cefepime, unclear significance given shortness of breath improved independently of switch to cefepime and chest x-ray does not show infiltrate. Continue breathing treatments #Type 2 diabetes mellitus -Was placed on insulin drip and glucose perioperatively suspect secondary to elevated beta hydroxybutyrate and continued n.p.o. status -Elevated beta-hydroxybutyrate may have been due to starvation ketosis given patient's poor p.o. intake for days leading up to presentation given her nausea and vomiting -If repeat lab work without gap or evidence of significant acidosis will likely be able to hold the insulin drip and D5 - Transition to sliding scale insulin when tolerated -Remains n.p.o. at this time - Hold home metformin -04/25: When patient was taken off of D5 and insulin drip she required D10 twice due to low glucose, she has been started back on D5 with potassium, continue present management -04/26: Glucose 125 this a.m., still on dextrose to prevent hypoglycemia, can likely DC this once patient tolerating p.o. #abn UA?UTI ruled out -ucx sent -On zosyn empirically -04/25: Urine culture still pending -04/26: Urine culture reporting out yeast, not Lilia, and colony count 11,000-25,000, unclear significance but doubt actual clinical UTI as UA had negative leuk esterase, negative nitrite, 0 white blood cells, noted bacteria but did have mucus and squamous cells and patient overall clinically improving without any antifungal therapy #Chronic pain -Patient has buprenorphine patch -Home Baclofen and gabapentin ordered - Supportive care -04/25: Patient's buprenorphine patch was continued as was her home baclofen and gabapentin -04/26: Baclofen and gabapentin on hold while patient n.p.o., patient much more alert and less distressed today, continue to hold at this time #Hypertension - As needed IV hydralazine - Home p.o. metoprolol continued w/ holding parameters - Hold home hydrochlorothiazide -04/25: Has been on the low side, decreased metoprolol, holding home hydrochlorothiazide -04/26: Blood pressure slowly starting to improve, will hold off on home hydrochlorothiazide, patient started on IV metoprolol low-dose and lieu of her p.o. metoprolol she still n.p.o. # Restless leg syndrome - Requip as tolerated -04/25: Home medications continued, therapeutic interchange to Mirapex -04/26: Resume home meds when able #Depression/anxiety - Zoloft as tolerated -04/25: Continue home Zoloft as able -04/26: Resume when able #DVT ppx: SCDs Angle Latham MD Charges/Coding Visit Charges Inpatient E&M: 90311 Subs Hosp L2
--- NOTE | 2025-04-26 16:43 | PN.SURG_ITS ---
Subjective Subjective Patient seen on rounds today on 2 separate occasions. Patient seems to be doing well. She has begun passing gas and had a large liquid bowel movement according to her nurse. She denies any significant issues or complaints Objective Data Objective Data Vital Signs: Vital Signs Temp Pulse Resp BP Pulse Ox O2 Del Method O2 Flow Rate 98.4 F 111 H 19 H 131/73 H 98 Nasal Cannula 3 04/26/25 13:50 04/26/25 13:50 04/26/25 13:50 04/26/25 13:50 04/26/25 13:50 04/26/25 15:16 04/26/25 15:16 Oxygen Flow Rate (L/min) 3 Oxygen Delivery Method Nasal Cannula Weight: 168 lb Body Mass Index (BMI) 32.8 Intake & Output: Intake and Output for Last 24 Hours 04/24/25 04/25/25 04/26/25 23:59 23:59 23:59 Intake Total 3860.56 / 3890.56 4370.50 / 4370.50 2392.08 / 2392.08 Output Total 2150 / 2150 2375 / 2825 2150 / 2150 Balance 1710.56 / 1740.56 1995.50 / 1545.50 242.08 / 242.08 Lab / Micro Data 04/26/25 03:35 04/26/25 04:15 Labs: Laboratory Results - last 24 hr 04/25/25 14:43: Magnesium 2.2 04/25/25 17:49: POC Glucose 129 H 04/25/25 21:15: Sodium 138, Potassium 3.1 L, Chloride 99, Carbon Dioxide 29.3, Anion Gap 10 04/25/25 23:08: POC Glucose 132 H 04/26/25 03:35: WBC 6.8, RBC 2.68 L, Hgb 8.1 L, Hct 26.2 L, MCV 97.8, MCH 30.2, MCHC 30.9 L, RDW Std Deviation 46.8 H, RDW Coeff of Stephenie 13.2, Plt Count 156, MPV 9.0, Immature Gran % (Auto) 2.200 H, Neut % (Auto) 80.3 H, Lymph % (Auto) 5.9 L, [place] % (Auto) 9.1, Eos % (Auto) 2.2, Baso % (Auto) 0.3, Absolute Neuts (auto) 5.5, Absolute Lymphs (auto) 0.40 L, Nucleated RBC % 0, Sodium Cancelled, Potassium Cancelled, Chloride Cancelled, Carbon Dioxide Cancelled, Anion Gap Cancelled, BUN Cancelled, Creatinine Cancelled, Estim Creat Clear Calc Cancelled, Est GFR (MDRD) Non-Af Cancelled, BUN/Creatinine Ratio Cancelled, Glucose Cancelled, Calcium Cancelled 04/26/25 04:15: Sodium 139, Potassium 3.3, Chloride 102, Carbon Dioxide 30.4, Anion Gap 7, BUN 26 H, Creatinine 1.02, Estim Creat Clear Calc 42.13 L, Est GFR (MDRD) Non-Af 57 L, BUN/Creatinine Ratio 25.0 H, Glucose 147 H, Calcium 8.1 04/26/25 04:22: POC Glucose 113 H 04/26/25 11:45: POC Glucose 125 H Micro: Microbiology 04/23/25 23:00 Urine, Clean Catch Urine Culture - Final Yeast, not Lilia albicans 04/24/25 Unknown Transtracheal Aspirate Gram Stain - Final 04/24/25 Unknown Transtracheal Aspirate Respiratory Culture - Preliminary Citrobacter freundii Gram negative darrick Rhythm Strip Rhythm Strip: Sinus Rhythm Rate: 94 Ectopy: None Physical Exam Narrative She is alert and oriented x 3. She is in no acute distress. Abdomen is soft and nondistended. Her abdomen appears appropriately tender. Dressing is clean dry and intact Assessment & Plan Assessment/Plan (1) Incarcerated femoral hernia: PLAN: Plan The patient is a 79-year-old female status post repair of an incarcerated femoral hernia causing small bowel obstruction. Patient is now exhibiting evidence of bowel function. I have written to DC her NG tube and slowly begin her on clear liquid diet. Thompson catheter was also DC'd. Encourage ambulation and incentive spirometry Dr Mcghee to return tomorrow
[2025-04-26] MEDS: 0.9% Saline Lock 10 ML Syringe IV ×2 (21:03→23:38)
[2025-04-27] VITALS (13 sets, daily range): BP systolic 146–154; BP diastolic 93–115; PULSE 73–122; RESP 16–20; TEMP 36.1–36.9; O2SAT 89–100
[2025-04-27] MEDS: Budesonide Respules 0.5 MG/2 ML AMPUL.NEB. INHALATION ×2 (06:54→20:05)
[2025-04-27 07:11] LABS: Hematocrit 31.2 % (37-47); Hemoglobin 10.1 g/dL (12.0-15.0); Immature Granulocytes Count 0.220 X10^3/uL (0.0-0.0); Mean Corp Hgb Conc 32.4 g/dL (32-36); Mean Corpuscular Volume 95.4 fL (81-99); Mean Platelet Vol. 8.9 fl (6.2-12.0); NRBC Flagged by Analyzer 0 % (0-5); POSITIVE DIFFERENTIAL YES; Platelet Count 189 K/mm3 (150-450); RBC Distribution Width CV 12.9 % (11.6-14.6); RBC Distribution Width SD 44.7 fl (35.1-43.9); Red Blood Count 3.27 M/mm3 (4.2-5.4); White Blood Count 7.9 K/mm3 (4.4-11.0)
[2025-04-27 07:50] LABS: Ferritin 1418 ng/mL (22-378); Iron 33 ug/dL (50-170); Iron Binding Capacity,Unsat 122 ug/dL (228-428); Magnesium 1.6 mg/dL (1.5-2.2)
[2025-04-27 07:55] LABS: Anion Gap 8 (5-15); BUN 12 mg/dL (4-19); BUN/Creat Ratio 14.8 RATIO (10-20); Calcium,Total 8.1 mg/dL (7.6-11.0); Carbon Dioxide 29.5 mmol/L (21.0-32.0); Chloride 104 mmol/L (98-108); Estimated Creatinine Clearance 53.72 ml/min (50-250); Glucose 133 mg/dL (70-99); Potassium 3.7 mmol/L (3.3-5.1)
[2025-04-27 07:56] LABS: Iron Binding Capacity,Total 155 ug/dL (250-450)
--- NOTE | 2025-04-27 08:18 | NURSING ---
Thompson catheter d/c by a previous shift. Exact date and time of d/c unknown. Thompson catheter d/c sometime prior to pt arriving on PCU.
--- NOTE | 2025-04-27 08:44 | PN.SURG_ITS ---
Subjective Subjective Patient did have some emesis thought it could be from the I-S however patient does admit to burping currently on clears, having flatus and some diarrhea per patient. Objective Data Objective Data Vital Signs: Vital Signs Temp Pulse Resp BP Pulse Ox O2 Del Method O2 Flow Rate 98.5 F 102 H 20 H 149/99 H 100 Nasal Cannula 3 04/27/25 06:25 04/27/25 06:56 04/27/25 06:56 04/27/25 06:28 04/27/25 06:56 04/27/25 07:52 04/27/25 07:52 Oxygen Flow Rate (L/min) 3 Oxygen Delivery Method Nasal Cannula Weight: 168 lb Body Mass Index (BMI) 32.8 Intake & Output: Intake and Output for Last 24 Hours 04/25/25 04/26/25 04/27/25 23:59 23:59 23:59 Intake Total 4370.50 / 4370.50 3412.08 / 3412.08 100 / 100 Output Total 2375 / 2825 2150 / 2850 700 / 700 Balance 1995.50 / 1545.50 1262.08 / 562.08 -600 / -600 Lab / Micro Data 04/27/25 06:58 04/27/25 06:58 Labs: Laboratory Results - last 24 hr 04/26/25 11:45: POC Glucose 125 H 04/26/25 16:49: POC Glucose 131 H 04/27/25 00:00: POC Glucose 88 04/27/25 06:41: POC Glucose 124 H 04/27/25 06:58: WBC 7.9, RBC 3.27 L, Hgb 10.1 L, Hct 31.2 L, MCV 95.4, MCH 30.9, MCHC 32.4, RDW Std Deviation 44.7 H, RDW Coeff of Stephenie 12.9, Plt Count 189, MPV 8.9, Immature Gran % (Auto) 2.800 H, Neut % (Auto) 76.0 H, Lymph % (Auto) 5.3 L, [place] % (Auto) 13.3 H, Eos % (Auto) 2.3, Baso % (Auto) 0.3, Absolute Neuts (auto) 6.0, Absolute Lymphs (auto) 0.42 L, Nucleated RBC % 0, Sodium 141, Potassium 3.7, Chloride 104, Carbon Dioxide 29.5, Anion Gap 8, BUN 12, Creatinine 0.79, Estim Creat Clear Calc 53.72, Est GFR (MDRD) Non-Af 77, BUN/Creatinine Ratio 14.8, Glucose 133 H, Calcium 8.1, Phosphorus 1.2 L*, Magnesium 1.6, Iron 33 L, T IBC 155 L, Iron Saturation 21.3, Unsaturated IBC 122 L, Ferritin 1418 H Micro: Microbiology 04/24/25 Unknown Transtracheal Aspirate Gram Stain - Final 04/24/25 Unknown Transtracheal Aspirate Respiratory Culture - Final Citrobacter freundii Enterobacter cloacae complex 04/23/25 23:00 Urine, Clean Catch Urine Culture - Final Yeast, not Lilia albicans Rhythm Strip Rhythm Strip: Sinus Rhythm Rate: 94 Ectopy: None Physical Exam Const oriented x3 and no apparent distress Resp normal respiratory effort Cardio regular rate GI soft to palpation GI Narrative: Abdominal and right groin incision clean dry and intact mildly tender to palpation appropriate, no peritoneal signs Assessment & Plan Assessment/Plan (1) Incarcerated femoral hernia: PLAN: Plan Continue clears. Await decrease burping. Appreciate medicine's assistance?patient on Maxipime due to positive respiratory culture from the OR ET tube, and chest x-ray shows no infiltrate Ella Mcghee M.D. Pager: [phone] [facility] [address] [place] [address], [facility], [address] [place] [address] Office: [phone]
[2025-04-27] MEDS: Cefepime HCl 2 GM in 0.9% Normal Saline (100mL MB+) 100 ML IV ×2 (09:13→22:03)
[2025-04-27] MEDS: Potassium Chloride 40 MEQ in Dextrose 5%/0.9% NaCl 1,000 ML 125 MEQ IV (10:51)
[2025-04-27] MEDS: 0.9% Saline Lock 10 ML Syringe IV ×2 (11:51→17:22)
[2025-04-27] MEDS: Na Biphos/Potassium Phosphate PACKET 1 PACKET PO ×2 (15:36→20:27)
--- NOTE | 2025-04-27 17:30 | PCM.PN.HOSP ---
Subjective Subjective Sitting up in bed, tolerating liquids but reports she feels full very quickly, did have an episode after using her incentive spirometer that she had an episode of emesis but she thinks she may have overdone it. Breathing better than it had been Objective Data Objective Data Vital Signs: Vital Signs Temp Pulse Resp BP Pulse Ox O2 Del Method O2 Flow Rate 97.5 F L 84 18 154/115 H 96 Nasal Cannula 3 04/27/25 17:20 04/27/25 17:22 04/27/25 17:20 04/27/25 17:22 04/27/25 17:20 04/27/25 17:20 04/27/25 17:20 Oxygen Flow Rate (L/min) 3 Oxygen Delivery Method Nasal Cannula Weight: 76.204 kg Body Mass Index (BMI) 32.8 Intake & Output: Intake and Output for Last 24 Hours 04/25/25 04/26/25 04/27/25 23:59 23:59 23:59 Intake Total 4370.50 / 4370.50 3412.08 / 3412.08 2060 / 2060 Output Total 2375 / 2825 2150 / 2850 1850 / 1850 Balance 1995.50 / 1545.50 1262.08 / 562.08 210 / 210 Lab / Micro Data 04/27/25 06:58 04/27/25 06:58 Labs: Laboratory Results - last 24 hr 04/27/25 00:00: POC Glucose 88 04/27/25 06:41: POC Glucose 124 H 04/27/25 06:58: WBC 7.9, RBC 3.27 L, Hgb 10.1 L, Hct 31.2 L, MCV 95.4, MCH 30.9, MCHC 32.4, RDW Std Deviation 44.7 H, RDW Coeff of Stephenie 12.9, Plt Count 189, MPV 8.9, Immature Gran % (Auto) 2.800 H, Neut % (Auto) 76.0 H, Lymph % (Auto) 5.3 L, [place] % (Auto) 13.3 H, Eos % (Auto) 2.3, Baso % (Auto) 0.3, Absolute Neuts (auto) 6.0, Absolute Lymphs (auto) 0.42 L, Nucleated RBC % 0, Sodium 141, Potassium 3.7, Chloride 104, Carbon Dioxide 29.5, Anion Gap 8, BUN 12, Creatinine 0.79, Estim Creat Clear Calc 53.72, Est GFR (MDRD) Non-Af 77, BUN/Creatinine Ratio 14.8, Glucose 133 H, Calcium 8.1, Phosphorus 1.2 L*, Magnesium 1.6, Iron 33 L, TIBC 155 L, Iron Saturation 21.3, Unsaturated IBC 122 L, Ferritin 1418 H 04/27/25 11:40: POC Glucose 146 H Micro: Microbiology 04/24/25 Unknown Transtracheal Aspirate Gram Stain - Final 04/24/25 Unknown Transtracheal Aspirate Respiratory Culture - Final Citrobacter freundii Enterobacter cloacae complex 04/23/25 23:00 Urine, Clean Catch Urine Culture - Final Yeast, not Lilia albicans Rhythm Strip Rhythm Strip: Sinus Rhythm Rate: 94 Ectopy: None Physical Exam Narrative General: Alert HEENT: Atraumatic, NG tube removed Eyes: Anicteric, normal conjunctiva, extraocular movements grossly intact Neck: Supple Respiratory: No respiratory distress, lung sounds clear today Cardiovascular: Some low-grade sinus tachycardia GI: No severe tenderness Extremities: No significant peripheral edema Musculoskeletal: Moving all extremities Neuro: No overt focal neurological deficits Skin: No rashes appreciated Psych: Cooperative Assessment & Plan Assessment/Plan (1) Incarcerated femoral hernia: PLAN: Plan 79-year-old female history of diabetes, restless leg syndrome, chronic hypoxic respiratory failure on 3 L nasal cannula secondary to COPD, hypertension, chronic pain presented [facility] ED 04/23/2025 due to nausea and vomiting with decreased p.o. intake and decreased bowel movements for [address] abdomen pelvis demonstrated small bowel obstruction versus inguinal incarcerated hernia. NG tube placed in the ED and general surgery contacted for admission. Consult placed to hospitalist. # Small bowel obstruction -Went to the OR early in the a.m. 04/24/2025 and had diagnostic lap with exploration of right groin repair of femoral hernia with mesh - Management per surgery -04/25: Patient with NG tube in place, reports no gas passed yet -04/26: Passing gas, thinks she may be about to have a bowel movement. Management per surgery, at time of evaluation NG tube still in place -04/27: Had bowel movement and had NG tube removed, presently on clear liquids, had 1 episode of emesis but seem to have been caused by using her incentive spirometer quickly in a short period of time # CATHI?resolved - Creatinine on presentation 2.15 up from 1.07 earlier this year - Improving with IV fluids/supportive care, creatinine 1.74 today - Avoid nephrotoxic agents -Holding home hydrochlorothiazide -04/25: Improving, creatinine 1.35 today -04/26: Creatinine 1.02 today, CATHI resolved -04/27: Kidney function further improved, BUN 12 and creatinine 0.79 # Hypokalemia?resolved -04/25: 2.7 this a.m., will replete and times repeat -04/26: Potassium 3.3, lower limit of normal and given still n.p.o. patient remains on IVF with potassium -04/27: Potassium this a.m. 3.7. Will DC potassium and D5 normal saline now that patient is beginning to tolerate p.o. and potassium improved # Anemia -04/26: Suspect multifactorial, appears previous hemoglobins have been around 10.5 range, on presentation hemoglobin 14.4 but this was likely due to hemoconcentration given patient's presenting complaint. Postsurgery hemoglobin 10.9 and is down trended and today is 8.1. Patient still on IV fluids, suspect that this is dilutional, postoperative, and result of continued blood draws to monitor levels. Repeat in the a.m. and will also add on iron studies. No reported active or ongoing blood loss at this time, continue to monitor. Overall patient improving -04/27: Hemoglobin 10.1 today, iron studies with possibly mixed picture but certainly component of chronic disease on top of blood loss from surgery, hemoglobin is stabilized # Chronic hypoxic respiratory failure secondary to COPD -Reportedly on 3 L home O2 -Resume inhalers -Will need incentive spirometer postoperatively -04/25: Reports some increased shortness of breath today, reports some improvement with breathing treatment, will obtain chest x-ray just to verify no additional pathology. Did have respiratory culture sent from the OR, culture pending. Not having productive cough. Does report some upper chest discomfort after her surgery on presentation however it was reproducible on palpation -04/26: Yesterday patient did have some increased shortness of breath improved with breathing treatments, today feeling much better but does have a respiratory specimen growing Citrobacter and another gram-negative darrick, Citrobacter is resistant to Zosyn so she has been switched to cefepime, unclear significance given shortness of breath improved independently of switch to cefepime and chest x-ray does not show infiltrate. Continue breathing treatments -04/27: On cefepime, reports breathing is doing better than it was #Type 2 diabetes mellitus -Was placed on insulin drip and glucose perioperatively suspect secondary to elevated beta hydroxybutyrate and continued n.p.o. status -Elevated beta-hydroxybutyrate may have been due to starvation ketosis given patient's poor p.o. intake for days leading up to presentation given her nausea and vomiting -If repeat lab work without gap or evidence of significant acidosis will likely be able to hold the insulin drip and D5 - Transition to sliding scale insulin when tolerated -Remains n.p.o. at this time - Hold home metformin -04/25: When patient was taken off of D5 and insulin drip she required D10 twice due to low glucose, she has been started back on D5 with potassium, continue present management -04/26: Glucose 125 this a.m., still on dextrose to prevent hypoglycemia, can likely DC this once patient tolerating p.o. -04/27: Patient beginning to tolerate p.o., diet to be advanced but glucose is improving, DC D5 and will monitor glucose, can resume if needed #Chronic pain -Patient has buprenorphine patch -Home Baclofen and gabapentin ordered - Supportive care -04/25: Patient's buprenorphine patch was continued as was her home baclofen and gabapentin -04/26: Baclofen and gabapentin on hold while patient n.p.o., patient much more alert and less distressed today, continue to hold at this time -04/27: Increasing baclofen, resume gabapentin in the a.m. suspect she is somewhat tachycardic due to withdrawal from some of her chronic medications, discussed with her that these will be added back as tolerated to avoid causing harm. She does report she was recently increased to 2 mg of ropinirole nightly, increased our equivalent from 0.75-1 of pramipexole #Hypertension - As needed IV hydralazine - Home p.o. metoprolol continued w/ holding parameters - Hold home hydrochlorothiazide -04/25: Has been on the low side, decreased metoprolol, holding home hydrochlorothiazide -04/26: Blood pressure slowly starting to improve, will hold off on home hydrochlorothiazide, patient started on IV metoprolol low-dose and lieu of her p.o. metoprolol she still n.p.o. -04/27: Resume home metoprolol p.o. but at slightly lower dose, can uptitrate if tolerating Chronic medical problems and/or problems not being actively addressed during today's encounter: #abn UA?UTI ruled out -ucx sent -On zosyn empirically -04/25: Urine culture still pending -04/26: Urine culture reporting out yeast, not Lilia, and colony count 11,000-25,000, unclear significance but doubt actual clinical UTI as UA had negative leuk esterase, negative nitrite, 0 white blood cells, noted bacteria but did have mucus and squamous cells and patient overall clinically improving without any antifungal therapy # Restless leg syndrome - Requip as tolerated -04/25: Home medications continued, therapeutic interchange to Mirapex -04/26: Resume home meds when able #Depression/anxiety - Zoloft as tolerated -04/25: Continue home Zoloft as able -04/26: Resume when able #DVT ppx: SCDs Angle Latham MD Charges/Coding Visit Charges Inpatient E&M: 56742 Subs Hosp L2
[2025-04-27] MEDS: Potassium Phosphate 45 MM in 0.9% Normal Saline (500mL Bag) 500 ML 85 MM IV (20:19)
[2025-04-27] MEDS: Metoprolol(XL)Succ 25 MG Tablet PO (20:23)
[2025-04-28 03:00] VITALS: BP 147/107; PULSE 105; RESP 18; TEMP 36; O2SAT 100
[2025-04-28 05:57] VITALS: BMI 32.7
[2025-04-28] MEDS: Na Biphos/Potassium Phosphate PACKET 1 PACKET PO ×3 (06:06→20:09)
[2025-04-28 06:23] LABS: Hematocrit 31.7 % (37-47); Hemoglobin 10.2 g/dL (12.0-15.0); Mean Corp Hgb Conc 32.2 g/dL (32-36); Mean Corpuscular Volume 94.3 fL (81-99); Mean Platelet Vol. 9.1 fl (6.2-12.0); POSITIVE COUNT YES; POSITIVE DIFFERENTIAL YES; POSITIVE MORPHOLOGY YES; Platelet Count 173 K/mm3 (150-450); RBC Distribution Width CV 12.9 % (11.6-14.6); RBC Distribution Width SD 44.6 fl (35.1-43.9); Red Blood Count 3.36 M/mm3 (4.2-5.4); White Blood Count 7.4 K/mm3 (4.4-11.0)
[2025-04-28 06:34] LABS: Differential Indicated MANUAL DIFF
[2025-04-28] MEDS: Albuterol 2.5 MG/3 ML VIAL.NEB. INHALATION ×2 (07:00→19:25)
[2025-04-28] MEDS: Budesonide Respules 0.5 MG/2 ML AMPUL.NEB. INHALATION ×2 (07:00→19:25)
[2025-04-28 07:03] VITALS: PULSE 103; RESP 24; O2SAT 93
[2025-04-28 07:04] LABS: Anion Gap 11 (5-15); BUN 7 mg/dL (4-19); BUN/Creat Ratio 11.1 RATIO (10-20); Calcium,Total 7.7 mg/dL (7.6-11.0); Carbon Dioxide 27.3 mmol/L (21.0-32.0); Chloride 101 mmol/L (98-108); Estimated Creatinine Clearance 53.64 ml/min (50-250); Glucose 101 mg/dL (70-99); Magnesium 1.4 mg/dL (1.5-2.2); Potassium 4.2 mmol/L (3.3-5.1)
[2025-04-28 07:44] LABS: Neutrophil-Band 1 % (0-5); Neutrophil-Segmented 73 % (47-70); Total Cells Counted 100 (MANUAL DIFF)
[2025-04-28] MEDS: 0.9% Saline Lock 10 ML Syringe IV ×2 (08:17→17:11)
[2025-04-28 09:00] VITALS: BP 152/104; PULSE 95; RESP 18; TEMP 36.6; O2SAT 96
--- NOTE | 2025-04-28 10:07 | PCM.PN.SRG ---
Subjective Subjective Patient did tolerate clears however did state that during the breathing treatment this morning was having some burning with that treatment and thought she was maybe going to throw up. Patient's has been having liquid stools. Objective Data Objective Data Vital Signs: Vital Signs Temp Pulse Resp BP Pulse Ox O2 Del Method O2 Flow Rate 96.8 F L 103 H 24 H 147/107 H 93 Nasal Cannula 3 04/28/25 03:00 04/28/25 07:03 04/28/25 07:03 04/28/25 03:00 04/28/25 07:03 04/28/25 07:30 04/28/25 07:30 Oxygen Flow Rate (L/min) 3 Oxygen Delivery Method Nasal Cannula Weight: 167 lb 8.821 oz Body Mass Index (BMI) 32.7 Intake & Output: Intake and Output for Last 24 Hours 04/26/25 04/27/25 04/28/25 23:59 23:59 23:59 Intake Total 3412.08 / 3412.08 3180 / 3530 1065 / 1065 Output Total 2150 / 2850 1850 / 1850 Balance 1262.08 / 562.08 1330 / 1680 1065 / 1065 Lab / Micro Data 04/28/25 05:46 04/28/25 05:46 Labs: Laboratory Results - last 24 hr 04/27/25 11:40: POC Glucose 146 H 04/27/25 17:27: POC Glucose 104 04/27/25 23:14: POC Glucose 106 04/28/25 05:46: WBC 7.4, RBC 3.36 L, Hgb 10.2 L, Hct 31.7 L, MCV 94.3, MCH 30.4, MCHC 32.2, RDW Std Deviation 44.6 H, RDW Coeff of Stephenie 12.9, Plt Count 173, MPV 9.1, Neut % (Auto) Not Reportable, Absolute Neuts (auto) 5.5, Absolute Lymphs (auto) 0.37 L, Total Counted 100, Neutrophils % (Manual) 73 H, Band Neutrophils % 1, Lymphocytes % (Manual) 5 L, Monocytes % (Manual) 14 H, Eosinophils % (Manual) 5, Metamyelocytes % 2 H, Diff Path Review May , Sodium 139, Potassium 4.2, Chloride 101, Carbon Dioxide 27.3, Anion Gap 11, BUN 7, Creatinine 0.67 L, Estim Creat Clear Calc 53.64, Est GFR (MDRD) Non-Af 90, BUN/Creatinine Ratio 11.1, Glucose 101 H, Calcium 7.7, Phosphorus 3.9, Magnesium 1.4 L 04/28/25 06:03: POC Glucose 103 Micro: Microbiology 04/24/25 Unknown Transtracheal Aspirate Gram Stain - Final 04/24/25 Unknown Transtracheal Aspirate Respiratory Culture - Final Citrobacter freundii Enterobacter cloacae complex 04/23/25 23:00 Urine, Clean Catch Urine Culture - Final Yeast, not Lilia albicans Rhythm Strip Rhythm Strip: Sinus Rhythm Rate: 94 Ectopy: None Physical Exam Const oriented x3 and no apparent distress Resp normal respiratory effort Cardio regular rate GI soft to palpation GI Narrative: Abdominal and right groin incision clean dry and intact mildly tender to palpation appropriate, no peritoneal signs Assessment & Plan Assessment/Plan (1) S/P hernia repair: (2) Incarcerated femoral hernia: PLAN: Plan Advance diet to diabetic. Appreciate medicine's assistance?patient on Maxipime due to positive respiratory culture from the OR ET tube, and chest x-ray shows no infiltrate Ella Mcghee M.D. Pager: [phone] [facility] [address] [place] [address], Outpatient [place], [address] [place] [id number] Office: [phone]
[2025-04-28] MEDS: Cefepime HCl 2 GM in 0.9% Normal Saline (100mL MB+) 100 ML IV ×2 (10:53→22:45)
[2025-04-28] MEDS: Magnesium Chloride 64 MG Delay Rel.Tablet 128 MG PO ×2 (10:55→20:08)
[2025-04-28 10:56] VITALS: BP 152/104; PULSE 95
[2025-04-28] MEDS: Metoprolol(XL)Succ 25 MG Tablet PO (10:56)
[2025-04-28] MEDS: guaiFENesin 10 ML UDC (200MG/10ML) PO ×3 (12:19→22:45)
--- NOTE | 2025-04-28 13:30 | CASEMGMT ---
Addendum entered by Lela Goodrich 04/28/25 14:16: List delivered to pt who would like [facility] TCU. Pt asked to review list in the event another option is needed. Pt requested that her daughter, Beba, be called if TCU unable to accept. RN CM updated and asked to make TCU referral. Lela Goodrich DC Planning Asst. Original Note: Discharge Planning A list of?SNF providers including quality and resource use data and consistent with the patient's preferred geographic region, medical needs, and insurance network was created in [employer] Guide.? This list was provided to the pt. Lela Goodrich, Discharge Planning Asst.
--- NOTE | 2025-04-28 14:15 | CASEMGMT ---
Addendum entered by Margo Augustin 04/28/25 15:20: TCU is able to accept patient. RN CM updated patient. Patient asked RN CM to update daughter Beba. RN NAOMI called Beba, no answer, message left with contact information. Original Note: SANDRA SALGADO updated by hospitalist that patient is interested in SNF at discharge. SANDRA SALGADO updated DC sales planning coordinator to provide SNF list to patient. SANDRA SALGADO updated by DC sales planning coordinator that patient prefers TCU, RN CM made referral to TCU and awaiting response. CM will continue to follow this patient and plan for a safe discharge.
--- NOTE | 2025-04-28 17:25 | CASEMGMT ---
SANDRA SALGADO received notification from Belle in TCU that [employer] is offering Peer to peer with intent to deny. SANDRA SALGADO updated Dr Mcghee and is agreeable to complete peer to peer with request to call her on her cell at [phone]. SANDRA SALGADO called [facility] Peer to peer at [phone] option 1 and left message requesting Peer to peer for member for tomorrow at anytime and provided Dr. Mcghee's information. SANDRA SALGADO request call back to confirm message was received and peer to peer schedule. SANDRA SALGADO received call back to message was received and peer to peer schedule for Sunday 04/29 between [id number]. SANDRA SALGADO updated Dr. Mcghee. NAOMI will continue to follow this patient and plan for a safe discharge.
--- NOTE | 2025-04-28 18:27 | PN.HOSP_ITS ---
Subjective Subjective Sitting up in chair, breathing about at baseline, does have dry cough and sometimes will develop dry heaves while she is coughing which is very distressing to her, denies abdominal pain. Discussed that her pain patch is unknown and she reports she is not newly having pain right now and would like to keep it off as she has been contemplating trying to get off of it on an outpatient basis, continuing her restless leg medication as well as her gabapentin and baclofen and she is tolerating this well. Diet being advanced today Objective Data Objective Data Vital Signs: Vital Signs Temp Pulse Resp BP Pulse Ox O2 Del Method O2 Flow Rate 97.9 F 95 18 152/104 H 96 Nasal Cannula 3 04/28/25 09:00 04/28/25 10:56 04/28/25 09:00 04/28/25 10:56 04/28/25 09:00 04/28/25 15:34 04/28/25 15:34 Oxygen Flow Rate (L/min) 3 Oxygen Delivery Method Nasal Cannula Weight: 76 kg Body Mass Index (BMI) 32.7 Intake & Output: Intake and Output for Last 24 Hours 04/26/25 04/27/25 04/28/25 23:59 23:59 23:59 Intake Total 3412.08 / 3412.08 3180 / 3530 1645 / 1645 Output Total 2150 / 2850 1850 / 1850 Balance 1262.08 / 562.08 1330 / 1680 1645 / 1645 Lab / Micro Data 04/28/25 05:46 04/28/25 05:46 Labs: Laboratory Results - last 24 hr 04/27/25 23:14: POC Glucose 106 04/28/25 05:46: WBC 7.4, RBC 3.36 L, Hgb 10.2 L, Hct 31.7 L, MCV 94.3, MCH 30.4, MCHC 32.2, RDW Std Deviation 44.6 H, RDW Coeff of Stephenie 12.9, Plt Count 173, MPV 9.1, Neut % (Auto) Not Reportable, Absolute Neuts (auto) 5.5, Absolute Lymphs (auto) 0.37 L, Total Counted 100, Neutrophils % (Manual) 73 H, Band Neutrophils % 1, Lymphocytes % (Manual) 5 L, Monocytes % (Manual) 14 H, Eosinophils % (Manual) 5, Metamyelocytes % 2 H, Diff Path Review Reviewed, Sodium 139, Potassium 4.2, Chloride 101, Carbon Dioxide 27.3, Anion Gap 11, BUN 7, C reatinine 0.67 L, Estim Creat Clear Calc 53.64, Est GFR (MDRD) Non-Af 90, BUN/Creatinine Ratio 11.1, Glucose 101 H, Calcium 7.7, Phosphorus 3.9, Magnesium 1.4 L 04/28/25 06:03: POC Glucose 103 Micro: Microbiology 04/24/25 Unknown Transtracheal Aspirate Gram Stain - Final 04/24/25 Unknown Transtracheal Aspirate Respiratory Culture - Final Citrobacter freundii Enterobacter cloacae complex 04/23/25 23:00 Urine, Clean Catch Urine Culture - Final Yeast, not Lilia albicans Rhythm Strip Rhythm Strip: Sinus Rhythm Rate: 94 Ectopy: None Physical Exam Narrative General: Alert HEENT: Atraumatic, Eyes: Anicteric, normal conjunctiva, extraocular movements grossly intact Neck: Supple Respiratory: No respiratory distress, lung sounds clear today Cardiovascular: Some intermittent low-grade sinus tach GI: No severe tenderness Extremities: No significant peripheral edema Musculoskeletal: Moving all extremities Neuro: No overt focal neurological deficits Skin: No rashes appreciated Psych: Cooperative but frustrated Assessment & Plan Assessment/Plan (1) Incarcerated femoral hernia: PLAN: Plan 79-year-old female history of diabetes, restless leg syndrome, chronic hypoxic respiratory failure on 3 L nasal cannula secondary to COPD, hypertension, chronic pain presented [facility] ED 04/23/2025 due to nausea and vomiting with decreased p.o. intake and decreased bowel movements for [address] abdomen pelvis demonstrated small bowel obstruction versus inguinal incarcerated hernia. NG tube placed in the ED and general surgery contacted for admission. Consult placed to hospitalist. # Small bowel obstruction -Went to the OR early in the a.m. 04/24/2025 and had diagnostic lap with exploration of right groin repair of femoral hernia with mesh - Management per surgery -04/25: Patient with NG tube in place, reports no gas passed yet -04/26: Passing gas, thinks she may be about to have a bowel movement. Management per surgery, at time of evaluation NG tube still in place -04/27: Had bowel movement and had NG tube removed, presently on clear liquids, had 1 episode of emesis but seem to have been caused by using her incentive spirometer quickly in a short period of time -04/28: Diet being advanced, has had a couple episodes of dry heaves but seems specifically associated with cough. Discussed with Dr. Mcghee # CATHI?resolved - Creatinine on presentation 2.15 up from 1.07 earlier this year - Improving with IV fluids/supportive care, creatinine 1.74 today - Avoid nephrotoxic agents -Holding home hydrochlorothiazide -04/25: Improving, creatinine 1.35 today -04/26: Creatinine 1.02 today, CATHI resolved -04/27: Kidney function further improved, BUN 12 and creatinine 0.79 -04/28: Improved again this a.m. to 0.67, she is likely at her close to baseline # Hypokalemia?resolved -04/25: 2.7 this a.m., will replete and times repeat -04/26: Potassium 3.3, lower limit of normal and given still n.p.o. patient remains on IVF with potassium -04/27: Potassium this a.m. 3.7. Will DC potassium and D5 normal saline now that patient is beginning to tolerate p.o. and potassium improved -04/28: Potassium 4.2 today, no need for further IV replacement # Anemia -04/26: Suspect multifactorial, appears previous hemoglobins have been around 10.5 range, on presentation hemoglobin 14.4 but this was likely due to hemoconcentration given patient's presenting complaint. Postsurgery hemoglobin 10.9 and is down trended and today is 8.1. Patient still on IV fluids, suspect that this is dilutional, postoperative, and result of continued blood draws to monitor levels. Repeat in the a.m. and will also add on iron studies. No reported active or ongoing blood loss at this time, continue to monitor. Overall patient improving -04/27: Hemoglobin 10.1 today, iron studies with possibly mixed picture but certainly component of chronic disease on top of blood loss from surgery, hemoglobin is stabilized -04/28: No ongoing blood loss reported, hemoglobin stabilized at 10.2 # Chronic hypoxic respiratory failure secondary to COPD -Reportedly on 3 L home O2 -Resume inhalers -Will need incentive spirometer postoperatively -04/25: Reports some increased shortness of breath today, reports some improvement with breathing treatment, will obtain chest x-ray just to verify no additional pathology. Did have respiratory culture sent from the OR, culture pending. Not having productive cough. Does report some upper chest discomfort after her surgery on presentation however it was reproducible on palpation -04/26: Yesterday patient did have some increased shortness of breath improved with breathing treatments, today feeling much better but does have a respiratory specimen growing Citrobacter and another gram-negative darrick, Citrobacter is resistant to Zosyn so she has been switched to cefepime, unclear significance given shortness of breath improved independently of switch to cefepime and chest x-ray does not show infiltrate. Continue breathing treatments -04/27: On cefepime, reports breathing is doing better than it was -04/28: Continue antibiotics for total of 7 days, adding Robitussin to help with cough given its causing dry heaves, breathing treatments as tolerated on discharge will go back on her home inhalers #Type 2 diabetes mellitus -Was placed on insulin drip and glucose perioperatively suspect secondary to elevated beta hydroxybutyrate and continued n.p.o. status -Elevated beta-hydroxybutyrate may have been due to starvation ketosis given patient's poor p.o. intake for days leading up to presentation given her nausea and vomiting -If repeat lab work without gap or evidence of significant acidosis will likely be able to hold the insulin drip and D5 - Transition to sliding scale insulin when tolerated -Remains n.p.o. at this time - Hold home metformin -04/25: When patient was taken off of D5 and insulin drip she required D10 twice due to low glucose, she has been started back on D5 with potassium, continue present management -04/26: Glucose 125 this a.m., still on dextrose to prevent hypoglycemia, can likely DC this once patient tolerating p.o. -04/27: Patient beginning to tolerate p.o., diet to be advanced but glucose is improving, DC D5 and will monitor glucose, can resume if needed -04/28: Glucoses been stable with no further hypoglycemia and not significantly hyperglycemic, can likely hold off on glucose checks #Chronic pain -Patient has buprenorphine patch -Home Baclofen and gabapentin ordered - Supportive care -04/25: Patient's buprenorphine patch was continued as was her home baclofen and gabapentin -04/26: Baclofen and gabapentin on hold while patient n.p.o., patient much more alert and less distressed today, continue to hold at this time -04/27: Increasing baclofen, resume gabapentin in the a.m. suspect she is somewhat tachycardic due to withdrawal from some of her chronic medications, discussed with her that these will be added back as tolerated to avoid causing harm. She does report she was recently increased to 2 mg of ropinirole nightly, increased our equivalent from 0.75-1 of pramipexole -04/28: Reports that she is not having pain at present and that it is well- managed on her baclofen, restless leg syndrome medication, and gabapentin. Checked her back and she does not actually have her patch on, it appears it was removed when she became somnolent in the ICU. Reported this to her and she would like to keep it off as she had been thinking she wanted to come off on an outpatient basis as well. This has not been placed back on as per discussion with patient #Hypertension - As needed IV hydralazine - Home p.o. metoprolol continued w/ holding parameters - Hold home hydrochlorothiazide -04/25: Has been on the low side, decreased metoprolol, holding home hydrochlorothiazide -04/26: Blood pressure slowly starting to improve, will hold off on home hydrochlorothiazide, patient started on IV metoprolol low-dose and lieu of her p.o. metoprolol she still n.p.o. -04/27: Resume home metoprolol p.o. but at slightly lower dose, can uptitrate if tolerating -04/28: Increasing metoprolol back to home dose, may be able to resume hydrochlorothiazide on discharge or before pending blood pressures Chronic medical problems and/or problems not being actively addressed during today's encounter: #abn UA?UTI ruled out -ucx sent -On zosyn empirically -04/25: Urine culture still pending -04/26: Urine culture reporting out yeast, not Lilia, and colony count 11,000- 25,000, unclear significance but doubt actual clinical UTI as UA had negative leuk esterase, negative nitrite, 0 white blood cells, noted bacteria but did have mucus and squamous cells and patient overall clinically improving without any antifungal therapy # Restless leg syndrome - Requip as tolerated -04/25: Home medications continued, therapeutic interchange to Mirapex -04/26: Resume home meds when able #Depression/anxiety - Zoloft as tolerated -04/25: Continue home Zoloft as able -04/26: Resume when able #DVT ppx: SCDs Angle Latham MD Charges/Coding Visit Charges Inpatient E&M: 32043 Subs Hosp L2
[2025-04-28 19:25] VITALS: PULSE 94; RESP 28; O2SAT 98
[2025-04-28 21:30] VITALS: BP 126/98; PULSE 96; RESP 18; TEMP 36.8; O2SAT 95
[2025-04-29] VITALS (8 sets, daily range): BP systolic 115–162; BP diastolic 61–115; PULSE 67–121; RESP 16–25; TEMP 36.3–36.7; O2SAT 94–100; BMI 31.1
[2025-04-29] MEDS: 0.9% Saline Lock 10 ML Syringe IV ×2 (05:19→09:25)
[2025-04-29] MEDS: Na Biphos/Potassium Phosphate PACKET 1 PACKET PO ×3 (05:19→21:31)
[2025-04-29] MEDS: guaiFENesin 10 ML UDC (200MG/10ML) PO ×3 (05:19→17:10)
[2025-04-29] MEDS: Budesonide Respules 0.5 MG/2 ML AMPUL.NEB. INHALATION ×2 (07:14→19:57)
[2025-04-29] MEDS: Cefepime HCl 2 GM in 0.9% Normal Saline (100mL MB+) 100 ML IV ×2 (09:25→21:31)
[2025-04-29] MEDS: Metoprolol(XL)Succ 50 MG Tablet PO (09:29)
--- NOTE | 2025-04-29 09:32 | CASEMGMT ---
SANDRA CM notified by physician, peer to peer completed and Pt is approved. SANDRA SALGADO notified TCU SW.
--- NOTE | 2025-04-29 10:52 | PCM.PN.SRG ---
Subjective Subjective The patient was seen and evaluated on rounds this morning. She has no issues or complaints. It sounds as though she is tolerating diet well. She is passing gas and bowel movements without difficulty. Objective Data Objective Data Vital Signs: Vital Signs Temp Pulse Resp BP Pulse Ox O2 Del Method O2 Flow Rate 97.4 F L 121 H 20 H 162/115 H 100 Nasal Cannula 3 04/29/25 09:31 04/29/25 09:31 04/29/25 09:31 04/29/25 09:31 04/29/25 09:31 04/29/25 09:31 04/29/25 09:42 Oxygen Flow Rate (L/min) 3 Oxygen Delivery Method Nasal Cannula Weight: 159 lb 9.835 oz Body Mass Index (BMI) 31.1 Intake & Output: Intake and Output for Last 24 Hours 04/27/25 04/28/25 04/29/25 23:59 23:59 23:59 Intake Total 3180 / 3530 2045 / 2045 200 / 200 Output Total 1850 / 1850 300 / 300 300 / 300 Balance 1330 / 1680 1745 / 1745 -100 / -100 Lab / Micro Data 04/28/25 05:46 04/28/25 05:46 Labs: Laboratory Results - last 24 hr 04/28/25 05:46: Diff Path Review Reviewed Micro: Microbiology 04/24/25 Unknown Transtracheal Aspirate Gram Stain - Final 04/24/25 Unknown Transtracheal Aspirate Respiratory Culture - Final Citrobacter freundii Enterobacter cloacae complex 04/23/25 23:00 Urine, Clean Catch Urine Culture - Final Yeast, not Lilia albicans Rhythm Strip Rhythm Strip: Sinus Rhythm Rate: 94 Ectopy: None Physical Exam Narrative She is alert and oriented x 3. She is in no acute distress. Abdomen is soft and appropriately tender. Assessment & Plan Assessment/Plan (1) S/P hernia repair: PLAN: Plan The patient is a 79-year-old female who was admitted with an incarcerated femoral hernia with a resultant small bowel obstruction. This was surgically addressed. Small bowel was viable. Patient is doing well from a surgical standpoint. She is tolerating diet and bowel function is good. The patient is precertified for transfer to TCU. Currently waiting for bed to become available in TCU. She should be ready for transfer from a surgical standpoint as soon as that bed becomes available.
--- NOTE | 2025-04-29 15:50 | CASEMGMT ---
Social Work- SW updated TCU admissions that precert approved; admission reports that pt can admit at any time. JARVIS notified Dr Mcghee of precert approval; SW was directed to notify Dr Cordon that mirianert approved and pt is able to d/c to TCU. SW notified Dr Cordon. JARVIS updated unit staff as well. Green sheet previously on chart. JARVIS remains available to follow. JOSE MANUEL Beyer
--- NOTE | 2025-04-29 17:07 | PCM.PN.HOSP ---
Subjective Subjective Slowly feeling better, mostly upset that if she poops and then leans forward to get up she poops again, breathing stable, cough improving with current measures Objective Data Objective Data Vital Signs: Vital Signs Temp Pulse Resp BP Pulse Ox O2 Del Method O2 Flow Rate 97.5 F L 67 18 137/99 H 100 Nasal Cannula 3 04/29/25 14:46 04/29/25 14:46 04/29/25 14:46 04/29/25 14:46 04/29/25 14:46 04/29/25 14:46 04/29/25 14:46 Oxygen Flow Rate (L/min) 3 Oxygen Delivery Method Nasal Cannula Weight: 72.4 kg Body Mass Index (BMI) 31.1 Intake & Output: Intake and Output for Last 24 Hours 04/27/25 04/28/25 04/29/25 23:59 23:59 23:59 Intake Total 3180 / 3530 2045 / 2045 560 / 560 Output Total 1850 / 1850 300 / 300 300 / 300 Balance 1330 / 1680 1745 / 1745 260 / 260 Lab / Micro Data 04/28/25 05:46 04/28/25 05:46 Micro: Microbiology 04/24/25 Unknown Transtracheal Aspirate Gram Stain - Final 04/24/25 Unknown Transtracheal Aspirate Respiratory Culture - Final Citrobacter freundii Enterobacter cloacae complex 04/23/25 23:00 Urine, Clean Catch Urine Culture - Final Yeast, not Lilia albicans Rhythm Strip Rhythm Strip: Sinus Rhythm Rate: 94 Ectopy: None Physical Exam Narrative General: Alert, no acute distress HEENT: Atraumatic, Eyes: Anicteric, normal conjunctiva, extraocular movements grossly intact Neck: Supple Respiratory: No respiratory distress, lung sounds clear today Cardiovascular: Some intermittent low-grade sinus tach GI: No severe tenderness Extremities: No significant peripheral edema Musculoskeletal: Moving all extremities Neuro: No overt focal neurological deficits Skin: No rashes appreciated Psych: Cooperative Assessment & Plan Assessment/Plan (1) Incarcerated femoral hernia: PLAN: Plan 79-year-old female history of diabetes, restless leg syndrome, chronic hypoxic respiratory failure on 3 L nasal cannula secondary to COPD, hypertension, chronic pain presented [facility] ED 04/23/2025 due to nausea and vomiting with decreased p.o. intake and decreased bowel movements for [address] abdomen pelvis demonstrated small bowel obstruction versus inguinal incarcerated hernia. NG tube placed in the ED and general surgery contacted for admission. Consult placed to hospitalist. # Small bowel obstruction -Went to the OR early in the a.m. 04/24/2025 and had diagnostic lap with exploration of right groin repair of femoral hernia with mesh - Management per surgery -04/25: Patient with NG tube in place, reports no gas passed yet -04/26: Passing gas, thinks she may be about to have a bowel movement. Management per surgery, at time of evaluation NG tube still in place -04/27: Had bowel movement and had NG tube removed, presently on clear liquids, had 1 episode of emesis but seem to have been caused by using her incentive spirometer quickly in a short period of time -04/28: Diet being advanced, has had a couple episodes of dry heaves but seems specifically associated with cough. Discussed with Dr. Mcghee -04/29: Patient tolerating diet, still having bowel movements, since cough is better has not been having any dry heaves or vomiting # Chronic hypoxic respiratory failure secondary to COPD -Reportedly on 3 L home O2 -Resume inhalers -Will need incentive spirometer postoperatively -04/25: Reports some increased shortness of breath today, reports some improvement with breathing treatment, will obtain chest x-ray just to verify no additional pathology. Did have respiratory culture sent from the OR, culture pending. Not having productive cough. Does report some upper chest discomfort after her surgery on presentation however it was reproducible on palpation -04/26: Yesterday patient did have some increased shortness of breath improved with breathing treatments, today feeling much better but does have a respiratory specimen growing Citrobacter and another gram-negative darrick, Citrobacter is resistant to Zosyn so she has been switched to cefepime, unclear significance given shortness of breath improved independently of switch to cefepime and chest x-ray does not show infiltrate. Continue breathing treatments -04/27: On cefepime, reports breathing is doing better than it was -04/28: Continue antibiotics for total of 7 days, adding Robitussin to help with cough given its causing dry heaves, breathing treatments as tolerated on discharge will go back on her home inhalers -04/29: Robitussin is helping with her cough, when patient goes to TCU she can be switched to Levaquin to complete the course with last dose the a.m. of 05/03/2025 to cover the Enterobacter and Citrobacter growing in her sputum #Chronic pain -Patient has buprenorphine patch -Home Baclofen and gabapentin ordered - Supportive care -04/25: Patient's buprenorphine patch was continued as was her home baclofen and gabapentin -04/26: Baclofen and gabapentin on hold while patient n.p.o., patient much more alert and less distressed today, continue to hold at this time -04/27: Increasing baclofen, resume gabapentin in the a.m. suspect she is somewhat tachycardic due to withdrawal from some of her chronic medications, discussed with her that these will be added back as tolerated to avoid causing harm. She does report she was recently increased to 2 mg of ropinirole nightly, increased our equivalent from 0.75-1 of pramipexole -04/28: Reports that she is not having pain at present and that it is well-managed on her baclofen, restless leg syndrome medication, and gabapentin. Checked her back and she does not actually have her patch on, it appears it was removed when she became somnolent in the ICU. Reported this to her and she would like to keep it off as she had been thinking she wanted to come off on an outpatient basis as well. This has not been placed back on as per discussion with patient -04/29: Buprenorphine patch taken off of MAR as she has not had this on for multiple days per her report and was doing fine without it #Hypertension - As needed IV hydralazine - Home p.o. metoprolol continued w/ holding parameters - Hold home hydrochlorothiazide -04/25: Has been on the low side, decreased metoprolol, holding home hydrochlorothiazide -04/26: Blood pressure slowly starting to improve, will hold off on home hydrochlorothiazide, patient started on IV metoprolol low-dose and lieu of her p.o. metoprolol she still n.p.o. -04/27: Resume home metoprolol p.o. but at slightly lower dose, can uptitrate if tolerating -04/28: Increasing metoprolol back to home dose, may be able to resume hydrochlorothiazide on discharge or before pending blood pressures -04/29: Patient tolerating home dose of metoprolol Chronic medical problems and/or problems not being actively addressed during today's encounter: #abn UA?UTI ruled out -ucx sent -On zosyn empirically -04/25: Urine culture still pending -04/26: Urine culture reporting out yeast, not Lilia, and colony count 11,000-25,000, unclear significance but doubt actual clinical UTI as UA had negative leuk esterase, negative nitrite, 0 white blood cells, noted bacteria but did have mucus and squamous cells and patient overall clinically improving without any antifungal therapy # CATHI?resolved - Creatinine on presentation 2.15 up from 1.07 earlier this year - Improving with IV fluids/supportive care, creatinine 1.74 today - Avoid nephrotoxic agents -Holding home hydrochlorothiazide -04/25: Improving, creatinine 1.35 today -04/26: Creatinine 1.02 today, CATHI resolved -04/27: Kidney function further improved, BUN 12 and creatinine 0.79 -04/28: Improved again this a.m. to 0.67, she is likely at her close to baseline # Hypokalemia?resolved -04/25: 2.7 this a.m., will replete and times repeat -04/26: Potassium 3.3, lower limit of normal and given still n.p.o. patient remains on IVF with potassium -04/27: Potassium this a.m. 3.7. Will DC potassium and D5 normal saline now that patient is beginning to tolerate p.o. and potassium improved -04/28: Potassium 4.2 today, no need for further IV replacement #Type 2 diabetes mellitus -Was placed on insulin drip and glucose perioperatively suspect secondary to elevated beta hydroxybutyrate and continued n.p.o. status -Elevated beta-hydroxybutyrate may have been due to starvation ketosis given patient's poor p.o. intake for days leading up to presentation given her nausea and vomiting -If repeat lab work without gap or evidence of significant acidosis will likely be able to hold the insulin drip and D5 - Transition to sliding scale insulin when tolerated -Remains n.p.o. at this time - Hold home metformin -04/25: When patient was taken off of D5 and insulin drip she required D10 twice due to low glucose, she has been started back on D5 with potassium, continue present management -04/26: Glucose 125 this a.m., still on dextrose to prevent hypoglycemia, can likely DC this once patient tolerating p.o. -04/27: Patient beginning to tolerate p.o., diet to be advanced but glucose is improving, DC D5 and will monitor glucose, can resume if needed -04/28: Glucoses been stable with no further hypoglycemia and not significantly hyperglycemic, can likely hold off on glucose checks # Anemia -04/26: Suspect multifactorial, appears previous hemoglobins have been around 10.5 range, on presentation hemoglobin 14.4 but this was likely due to hemoconcentration given patient's presenting complaint. Postsurgery hemoglobin 10.9 and is down trended and today is 8.1. Patient still on IV fluids, suspect that this is dilutional, postoperative, and result of continued blood draws to monitor levels. Repeat in the a.m. and will also add on iron studies. No reported active or ongoing blood loss at this time, continue to monitor. Overall patient improving -04/27: Hemoglobin 10.1 today, iron studies with possibly mixed picture but certainly component of chronic disease on top of blood loss from surgery, hemoglobin is stabilized -04/28: No ongoing blood loss reported, hemoglobin stabilized at 10.2 # Restless leg syndrome - Requip as tolerated -04/25: Home medications continued, therapeutic interchange to Mirapex -04/26: Resume home meds when able #Depression/anxiety - Zoloft as tolerated -04/25: Continue home Zoloft as able -04/26: Resume when able #DVT ppx: SCDs Angle Latham MD Charges/Coding Visit Charges Inpatient E&M: 07304 Subs Hosp L2
[2025-04-29] MEDS: Albuterol 2.5 MG/3 ML VIAL.NEB. INHALATION (19:57)
[2025-04-30] MEDS: guaiFENesin 10 ML UDC (200MG/10ML) PO ×3 (00:39→12:30)
[2025-04-30 02:20] VITALS: BMI 30.4
[2025-04-30] MEDS: Na Biphos/Potassium Phosphate PACKET 1 PACKET PO ×2 (05:11→14:16)
[2025-04-30] MEDS: Budesonide Respules 0.5 MG/2 ML AMPUL.NEB. INHALATION (07:01)
[2025-04-30] MEDS: Albuterol 2.5 MG/3 ML VIAL.NEB. INHALATION (07:01)
[2025-04-30 08:17] VITALS: PULSE 88; RESP 18; O2SAT 99
[2025-04-30 08:47] VITALS: BP 114/89; PULSE 95; RESP 20; TEMP 36.5; O2SAT 100
[2025-04-30] MEDS: Cefepime HCl 2 GM in 0.9% Normal Saline (100mL MB+) 100 ML IV (08:54)
[2025-04-30] MEDS: 0.9% Saline Lock 10 ML Syringe IV ×2 (08:55→12:31)
[2025-04-30 08:58] VITALS: BP 114/89; PULSE 95
[2025-04-30] MEDS: Metoprolol(XL)Succ 50 MG Tablet PO (08:58)
--- NOTE | 2025-04-30 11:52 | PCM.DC.SUM ---
Providers Date of Admission: 04/24/25 Date of Discharge: 04/30/25 Primary Care Physician: Dr. Roderick Ryder MD Consultations 04/24/25 03:13 Consult: Hospitalist Routine Consulting Provider: Anne Marie Vásquez Reason for Consult: medical management EMERGENT Consult: No MD Notified: Yes Date Notified: 04/24/25 Time Notified: 01:24 Method of Notification: Verbal Reason For Visit: SBO DUE TO INCARCERATED HERNIA Diagnosis Discharge Diagnosis (1) Incarcerated femoral hernia: Status: Acute Code(s): K41.30 - Unilateral femoral hernia, with obstruction, without gangrene, not specified as recurrent Plan The patient is a 79-year-old female who was admitted with an incarcerated femoral hernia with a resultant small bowel obstruction. This was surgically addressed. Small bowel was viable. Patient is doing well from a surgical standpoint. She is tolerating diet and bowel function is good. The patient is precertified for transfer to TCU. Currently waiting for bed to become available in TCU. She should be ready for transfer from a surgical standpoint as soon as that bed becomes available. Medications at Discharge Home Medications albuterol sulfate 90 mcg/actuation aerosol inhaler 2 puff inhalation Q4H PRN Sob &/Or Wheezing 10/14/18 metformin 500 mg tablet 500 mg PO DAILY Blood sugar 10/14/18 ropinirole 0.5 mg tablet 1.5 mg PO QHS Restless leg 10/14/18 Oxygen #1 ea 10/27/18 sertraline 50 mg tablet 50 mg PO DAILY Mood 07/25/21 acetaminophen 500 mg tablet 1,000 mg (2 x 500 mg) PO Q6H PRN PRN Pain Score 1-3 #0 tabs 08/07/21 gabapentin 100 mg capsule 100 mg PO TIDCM nerve pain 30 days #90 caps 08/07/21 metoprolol succinate 50 mg tablet,extended release 24 hr 50 mg PO DAILY BP/HR 30 days #0 tabs 12/15/22 budesonide 160 mcg-glycopyr 9 mcg-formot 4.8 mcg/actuation HFA inhaler (Breztri Aerosphere) 2 inh inhalation BID 09/04/24 buprenorphine 7.5 mcg/hour weekly transdermal patch 1 patch transdermal QWEEK 09/04/24 hydrochlorothiazide 12.5 mg capsule 12.5 mg PO Q12H 09/04/24 oxybutynin chloride 5 mg tablet,extended release 24 hr 5 mg PO DAILY 09/04/24 tramadol 50 mg tablet 50 mg PO BID PRN PRN pain 09/04/24 baclofen 10 mg tablet 10 mg PO TID 04/23/25 ferrous sulfate 325 mg (65 mg iron) tablet (FeroSul) PO 04/23/25 Hospital Course Operations herniorrhaphy Summary of Care Provided Minutes Spent on Discharge: 15 Hospital Course: The patient is a 79-year-old female who presented with a small bowel obstruction along with an incarcerated femoral hernia. Patient was taken promptly to the operating room. At that time the hernia was reduced. The bowel affected did not require resection and the hernia was repaired. Patient was subsequently hospitalized following the surgery. Her hospital course was fairly unremarkable. She was started on diet once bowel function resumed. Initially an NG tube was in place but this was removed a day or 2 after surgery along with her Thompson catheter. Her diet has been gradually advanced. She has been working with physical therapy. She continues to require some nasal cannula oxygen. Physical therapy is recommending SNF/rehab. Patient continues to do well and anticipates transfer to [facility] today Physical Exam Narrative She is alert and orient x 3. She is in no acute distress. Head is normocephalic and atraumatic. Pupils equal round reactive to light. Patient is wearing nasal cannula oxygen . Abdomen is soft and appropriately tender. Incisions appear clean dry and intact. Weight / BMI Weight Weight: 156 lb 1.396 oz Body Mass Index (BMI) 30.4 ABG / Lab / Microbiology Data 04/28/25 05:46 04/28/25 05:46 Laboratory: Laboratory Results - last 24 hr 04/29/25 23:44: POC Glucose 136 H Microbiology: Microbiology 04/24/25 Unknown Transtracheal Aspirate Gram Stain - Final 04/24/25 Unknown Transtracheal Aspirate Respiratory Culture - Final Citrobacter freundii Enterobacter cloacae complex 04/23/25 23:00 Urine, Clean Catch Urine Culture - Final Yeast, not Lilia albicans D/C Instructions Discharge Activity: May Shower May shower in (days): 0 Lifting Restrictions: No lifting pushing or pulling more than 20 pounds for about 6 weeks Call your doctor if your incision/area has: Continuous Slow Oozing, Sudden Increased Bleeding, Increased Pain/ Swelling, Increased Redness, Foul Smelling Discharge and Swelling at the incision site Call your doctor if you observe: Fever of 101 or Higher DC O2, CPAP, BIPAP Needs Home O2 Discharge instructions: No DC home with Oxygen: No Please Follow Up With: Ella Mcghee MD When: 2 weeks. Please call office to schedule appointment Meaningful Use Info Meaningful Use Meaningful Use Diagnoses (Choose all that apply): None applicable Discharge Plan Admission Admit Date/Time: 04/24/25 01:23 Primary Reason for Your Visit: Incarcerated femoral hernia Attending Provider: Ella Mcghee Primary Care Provider: Roderick Ryder Consulting Providers: Angle Latham Discharge Orders/Prescriptions Prescriptions: No Action (DME) Oxygen 3 liters NC Qty: 1 Dose Instruction: As directed Patient Comments: says she uses 3-4L at home Rx Instructions: As directed metformin 500 mg tablet 500 mg PO DAILY albuterol sulfate 90 mcg/actuation HFA aerosol inhaler 2 puff INHALATION Q4H PRN (Reason: Sob &/Or Wheezing) ropinirole 0.5 mg tablet 1.5 mg PO QHS sertraline 50 mg Tablet 50 mg PO DAILY acetaminophen 500 mg Tablet 1,000 mg PO Q6H PRN PRN (Reason: Pain Score 1-3) Qty: 0 0RF gabapentin 100 mg Capsule 100 mg PO TIDCM 30 Days Qty: 90 0RF metoprolol succinate 50 mg tablet extended release 24 hr 50 mg PO DAILY 30 Days Qty: 0 0RF Rx Instructions: Hold for heart less than 50 or systolic blood pressure less than 100 mmHg. tramadol 50 mg tablet 50 mg PO BID PRN PRN (Reason: pain) hydrochlorothiazide 12.5 mg capsule 12.5 mg PO Q12H oxybutynin chloride 5 mg tablet extended release 24hr 5 mg PO DAILY buprenorphine 7.5 mcg/hour patch weekly 1 patch transdermal QWEEK Breztri Aerosphere 160-9-4.8 mcg/actuation HFA aerosol inhaler 2 inh INHALATION BID baclofen 10 mg tablet 10 mg PO TID ferrous sulfate [FeroSul] 325 mg (65 mg iron) tablet PO Referrals / Follow Up: Roderick Ryder MD [Primary Care Provider, Medical] Disposition Disposition (needs filled in before D/C Order can be placed): Senior Living Facility
[2025-04-30 11:59] VITALS: BP 128/90; PULSE 86; RESP 18; TEMP 36.9; O2SAT 100
--- NOTE | 2025-04-30 12:39 | PCM.PN.HOSP ---
Subjective Subjective Continues to improve, denies any worsening of her breathing, still coughing little bit but better than it was, no new or acute complaints Objective Data Objective Data Vital Signs: Vital Signs Temp Pulse Resp BP Pulse Ox O2 Del Method O2 Flow Rate 97.7 F L 95 20 H 114/89 H 100 Nasal Cannula 3 04/30/25 08:47 04/30/25 08:58 04/30/25 08:47 04/30/25 08:58 04/30/25 08:47 04/30/25 08:47 04/30/25 08:51 Oxygen Flow Rate (L/min) 3 Oxygen Delivery Method Nasal Cannula Weight: 70.8 kg Body Mass Index (BMI) 30.4 Intake & Output: Intake and Output for Last 24 Hours 04/28/25 04/29/25 04/30/25 23:59 23:59 23:59 Intake Total 2045 / 2045 1120 / 1120 100 / 100 Output Total 300 / 300 300 / 300 Balance 1745 / 1745 820 / 820 100 / 100 Lab / Micro Data 04/28/25 05:46 04/28/25 05:46 Labs: Laboratory Results - last 24 hr 04/29/25 23:44: POC Glucose 136 H Micro: Microbiology 04/24/25 Unknown Transtracheal Aspirate Gram Stain - Final 04/24/25 Unknown Transtracheal Aspirate Respiratory Culture - Final Citrobacter freundii Enterobacter cloacae complex 04/23/25 23:00 Urine, Clean Catch Urine Culture - Final Yeast, not Lilia albicans Rhythm Strip Rhythm Strip: Sinus Rhythm Rate: 94 Ectopy: None Physical Exam Narrative General: Alert, no acute distress HEENT: Atraumatic, Eyes: Anicteric, normal conjunctiva, extraocular movements grossly intact Neck: Supple Respiratory: No respiratory distress, lung sounds clear today Cardiovascular: Regular rate and rhythm GI: No severe tenderness Extremities: No significant peripheral edema Musculoskeletal: Moving all extremities Neuro: No overt focal neurological deficits Skin: No rashes appreciated Psych: Cooperative Assessment & Plan Assessment/Plan (1) Incarcerated femoral hernia: PLAN: Plan 79-year-old female history of diabetes, restless leg syndrome, chronic hypoxic respiratory failure on 3 L nasal cannula secondary to COPD, hypertension, chronic pain presented [facility] ED 04/23/2025 due to nausea and vomiting with decreased p.o. intake and decreased bowel movements for [address] abdomen pelvis demonstrated small bowel obstruction versus inguinal incarcerated hernia. NG tube placed in the ED and general surgery contacted for admission. Consult placed to hospitalist. # Small bowel obstruction -Went to the OR early in the a.m. 04/24/2025 and had diagnostic lap with exploration of right groin repair of femoral hernia with mesh - Management per surgery -04/25: Patient with NG tube in place, reports no gas passed yet -04/26: Passing gas, thinks she may be about to have a bowel movement. Management per surgery, at time of evaluation NG tube still in place -04/27: Had bowel movement and had NG tube removed, presently on clear liquids, had 1 episode of emesis but seem to have been caused by using her incentive spirometer quickly in a short period of time -04/28: Diet being advanced, has had a couple episodes of dry heaves but seems specifically associated with cough. Discussed with Dr. Mcghee -04/29: Patient tolerating diet, still having bowel movements, since cough is better has not been having any dry heaves or vomiting -04/30: Patient for TCU when bed available # Chronic hypoxic respiratory failure secondary to COPD -Reportedly on 3 L home O2 -Resume inhalers -Will need incentive spirometer postoperatively -04/25: Reports some increased shortness of breath today, reports some improvement with breathing treatment, will obtain chest x-ray just to verify no additional pathology. Did have respiratory culture sent from the OR, culture pending. Not having productive cough. Does report some upper chest discomfort after her surgery on presentation however it was reproducible on palpation -04/26: Yesterday patient did have some increased shortness of breath improved with breathing treatments, today feeling much better but does have a respiratory specimen growing Citrobacter and another gram-negative darrick, Citrobacter is resistant to Zosyn so she has been switched to cefepime, unclear significance given shortness of breath improved independently of switch to cefepime and chest x-ray does not show infiltrate. Continue breathing treatments -04/27: On cefepime, reports breathing is doing better than it was -04/28: Continue antibiotics for total of 7 days, adding Robitussin to help with cough given its causing dry heaves, breathing treatments as tolerated on discharge will go back on her home inhalers -04/29: Robitussin is helping with her cough, when patient goes to TCU she can be switched to Levaquin to complete the course with last dose the a.m. of 05/03/2025 to cover the Enterobacter and Citrobacter growing in her sputum -04/30: Respiratory status stable, 3 more days of Levaquin if patient were to be transferred today #Chronic pain -Patient has buprenorphine patch -Home Baclofen and gabapentin ordered - Supportive care -04/25: Patient's buprenorphine patch was continued as was her home baclofen and gabapentin -04/26: Baclofen and gabapentin on hold while patient n.p.o., patient much more alert and less distressed today, continue to hold at this time -04/27: Increasing baclofen, resume gabapentin in the a.m. suspect she is somewhat tachycardic due to withdrawal from some of her chronic medications, discussed with her that these will be added back as tolerated to avoid causing harm. She does report she was recently increased to 2 mg of ropinirole nightly, increased our equivalent from 0.75-1 of pramipexole -04/28: Reports that she is not having pain at present and that it is well-managed on her baclofen, restless leg syndrome medication, and gabapentin. Checked her back and she does not actually have her patch on, it appears it was removed when she became somnolent in the ICU. Reported this to her and she would like to keep it off as she had been thinking she wanted to come off on an outpatient basis as well. This has not been placed back on as per discussion with patient -04/29: Buprenorphine patch taken off of MAR as she has not had this on for multiple days per her report and was doing fine without it -04/30: Patient okay with discontinuing the buprenorphine patch altogether at this time, this can always be revisited but presently reports that her pain is well-controlled on other home meds #Hypertension - As needed IV hydralazine - Home p.o. metoprolol continued w/ holding parameters - Hold home hydrochlorothiazide -04/25: Has been on the low side, decreased metoprolol, holding home hydrochlorothiazide -04/26: Blood pressure slowly starting to improve, will hold off on home hydrochlorothiazide, patient started on IV metoprolol low-dose and lieu of her p.o. metoprolol she still n.p.o. -04/27: Resume home metoprolol p.o. but at slightly lower dose, can uptitrate if tolerating -04/28: Increasing metoprolol back to home dose, may be able to resume hydrochlorothiazide on discharge or before pending blood pressures -04/29: Patient tolerating home dose of metoprolol -04/30: Blood pressure has been stable Chronic medical problems and/or problems not being actively addressed during today's encounter: #abn UA?UTI ruled out -ucx sent -On zosyn empirically -04/25: Urine culture still pending -04/26: Urine culture reporting out yeast, not Lilia, and colony count 11,000-25,000, unclear significance but doubt actual clinical UTI as UA had negative leuk esterase, negative nitrite, 0 white blood cells, noted bacteria but did have mucus and squamous cells and patient overall clinically improving without any antifungal therapy # CATHI?resolved - Creatinine on presentation 2.15 up from 1.07 earlier this year - Improving with IV fluids/supportive care, creatinine 1.74 today - Avoid nephrotoxic agents -Holding home hydrochlorothiazide -04/25: Improving, creatinine 1.35 today -04/26: Creatinine 1.02 today, CATHI resolved -04/27: Kidney function further improved, BUN 12 and creatinine 0.79 -04/28: Improved again this a.m. to 0.67, she is likely at her close to baseline # Hypokalemia?resolved -04/25: 2.7 this a.m., will replete and times repeat -04/26: Potassium 3.3, lower limit of normal and given still n.p.o. patient remains on IVF with potassium -04/27: Potassium this a.m. 3.7. Will DC potassium and D5 normal saline now that patient is beginning to tolerate p.o. and potassium improved -04/28: Potassium 4.2 today, no need for further IV replacement #Type 2 diabetes mellitus -Was placed on insulin drip and glucose perioperatively suspect secondary to elevated beta hydroxybutyrate and continued n.p.o. status -Elevated beta-hydroxybutyrate may have been due to starvation ketosis given patient's poor p.o. intake for days leading up to presentation given her nausea and vomiting -If repeat lab work without gap or evidence of significant acidosis will likely be able to hold the insulin drip and D5 - Transition to sliding scale insulin when tolerated -Remains n.p.o. at this time - Hold home metformin -04/25: When patient was taken off of D5 and insulin drip she required D10 twice due to low glucose, she has been started back on D5 with potassium, continue present management -04/26: Glucose 125 this a.m., still on dextrose to prevent hypoglycemia, can likely DC this once patient tolerating p.o. -04/27: Patient beginning to tolerate p.o., diet to be advanced but glucose is improving, DC D5 and will monitor glucose, can resume if needed -04/28: Glucoses been stable with no further hypoglycemia and not significantly hyperglycemic, can likely hold off on glucose checks # Anemia -04/26: Suspect multifactorial, appears previous hemoglobins have been around 10.5 range, on presentation hemoglobin 14.4 but this was likely due to hemoconcentration given patient's presenting complaint. Postsurgery hemoglobin 10.9 and is down trended and today is 8.1. Patient still on IV fluids, suspect that this is dilutional, postoperative, and result of continued blood draws to monitor levels. Repeat in the a.m. and will also add on iron studies. No reported active or ongoing blood loss at this time, continue to monitor. Overall patient improving -04/27: Hemoglobin 10.1 today, iron studies with possibly mixed picture but certainly component of chronic disease on top of blood loss from surgery, hemoglobin is stabilized -04/28: No ongoing blood loss reported, hemoglobin stabilized at 10.2 # Restless leg syndrome - Requip as tolerated -04/25: Home medications continued, therapeutic interchange to [employer] -04/26: Resume home meds when able #Depression/anxiety - Zoloft as tolerated -04/25: Continue home Zoloft as able -04/26: Resume when able #DVT ppx: SCDs Angle Latham MD Time spent in the patient's overall evaluation,decision-making process, review of diagnostic data, adjustment of management, discussion with other providers, nursing nursing and ancillary staff involved in patient's care documentation, 36 Minutes Charges/Coding Visit Charges Inpatient E&M: 35865 Subs Hosp L2
[2025-04-30 14:20] VITALS: BP 128/90; PULSE 86; RESP 18; TEMP 36.9; O2SAT 100
--- NOTE | 2025-04-30 14:47 | NURSING ---
Called in report to Tonya FLORES from [facility] @ 14:47.
--- NOTE | 2025-04-30 16:03 | TREXTCAR_ITS ---
Diet Diet Order/Speech Therapy: INPATIENT Hospital Diet / Speech Therapy Order(s) 04/28/25 11:09 Diabetic [Diet: Consistent Carb - Calorie Controlled] Diet Comments: except meds How many daily calories?: 1800 calorie Routine Orders/Code Status Suppository Type: Dulcolax 10mg Suppository Frequency: Daily PRN Code Status: Full Code DC O2, CPAP, BIPAP needs Home O2 Discharge instructions: Yes Type of respiratory needs?: Oxygen Oxygen frequency: Continuous Continuous oxygen liters per minute: 3 Wound(s) Umbilical: Wound Type: Surgical Incision RLQ Abd: Wound Type: Surgical Incision Therapies Physical Therapy: Eval and Treat Occupational Therapy: Eval and Treat Problem/Diagnosis (1) Incarcerated femoral hernia: Status: Acute Code(s): K41.30 - Unilateral femoral hernia, with obstruction, without gangrene, not specified as recurrent Comment: right-s/p repair with mesh Plan # Small bowel obstruction # Chronic hypoxic respiratory failure secondary to COPD #Chronic pain #Hypertension #abn UA?UTI ruled out # CATHI?resolved # Hypokalemia?resolved #Type 2 diabetes mellitus # Anemia # Restless leg syndrome #Depression/anxiety 79-year-old female history of diabetes, restless leg syndrome, chronic hypoxic respiratory failure on 3 L nasal cannula secondary to COPD, hypertension, chronic pain presented [facility] ED 04/23/2025 due to nausea and vomiting with decreased p.o. intake and decreased bowel movements for [address] abdomen pelvis demonstrated small bowel obstruction versus inguinal incarcerated hernia. NG tube placed in the ED and general surgery contacted for admission. Consult placed to hospitalist. Went to the OR early in the a.m. 04/24/2025 and had diagnostic lap with exploration of right groin repair of femoral hernia with mesh. Postoperatively improved and was able to have bowel movements, NG tube removed. Patient did have some shortness of breath and grew Citrobacter and Enterobacter in her sputum, breathing improved. Also of note she had chronically had a buprenorphine patch which was removed perioperatively due to sedation, she did well without this in place and she did not want to have this placed back on it she ultimately wanted to be off of this. She will continue her other home pain medications, baclofen, gabapentin and her medicine for restless legs. Discharged to TCU in stable condition - No lifting more than 20 pounds for 6 weeks, follow-up with Dr. Mcghee in 2 weeks -You will need to take Levaquin daily through the morning of the Allergies/Procedures Done in Hospital Allergies lisinopril Adverse Reaction (Intermediate, Verified 04/23/25 19:43) cough pregabalin (From Lyrica) Adverse Reaction (Verified 04/23/25 19:43) Swelling Procedures: - (hernia repair with mesh) Type of Care/Length of Stay Estimated LOS: Convalescent Care Less Than 30 days Type of Care Needed: Skilled Rehab Potential: Good Prognosis: Good Additional Orders/Day of Discharge Day of Discharge: 04/30/25 Dietary and Speech Recommendations Dietitian Recommendations/Changes: Recommend advanced diet as tolerated to transitional with goal diet of cardiac and consistent carbohydrate. Will monitor weight trends. Follow Up Care Please Follow Up With: Ella Mcghee MD Discharge Plan Admission Admit Date/Time: 04/24/25 01:23 Primary Reason for Your Visit: Incarcerated femoral hernia Attending Provider: Ella Mcghee Primary Care Provider: Roderick Ryder Consulting Providers: Angle Latham Instructions Additional Instructions / Restrictions: - No lifting more than 20 pounds for 6 weeks, follow-up with Dr. Mcghee in 2 weeks -You will need to take Levaquin daily through the morning of the Discharge Orders/Prescriptions Prescriptions: New levofloxacin 750 mg tablet 750 mg PO DAILY 3 Days Qty: 3 0RF Continued (DME) Oxygen 3 liters NC Qty: 1 Dose Instruction: As directed Patient Comments: says she uses 3-4L at home Rx Instructions: As directed metformin 500 mg tablet 500 mg PO DAILY albuterol sulfate 90 mcg/actuation HFA aerosol inhaler 2 puff INHALATION Q4H PRN (Reason: Sob &/Or Wheezing) ropinirole 0.5 mg tablet 1.5 mg PO QHS sertraline 50 mg Tablet 50 mg PO DAILY acetaminophen 500 mg Tablet 1,000 mg PO Q6H PRN PRN (Reason: Pain Score 1-3) Qty: 0 0RF metoprolol succinate 50 mg tablet extended release 24 hr 50 mg PO DAILY 30 Days Qty: 0 0RF Rx Instructions: Hold for heart less than 50 or systolic blood pressure less than 100 mmHg. hydrochlorothiazide 12.5 mg capsule 12.5 mg PO Q12H oxybutynin chloride 5 mg tablet extended release 24hr 5 mg PO DAILY Kayla Aerosphere 160-9-4.8 mcg/actuation HFA aerosol inhaler 2 inh INHALATION BID baclofen 10 mg tablet 10 mg PO TID ferrous sulfate [FeroSul] 325 mg (65 mg iron) tablet 325 mg PO DAILY.TCU gabapentin 100 mg Capsule 100 mg PO TIDCM 3 Days Qty: 9 0RF Discontinued tramadol 50 mg tablet 50 mg PO BID PRN PRN (Reason: pain) buprenorphine 7.5 mcg/hour patch weekly 1 patch transdermal QWEEK Referrals / Follow Up: Ella Mcghee MD [Med Staff - Active Staff, General Surgery] - Within 2 Weeks Roderick Ryder MD [Primary Care Provider, Medical] Disposition Disposition (needs filled in before D/C Order can be placed): Nursing Home Facility
== END 2025-04-30 15:05 | disposition skilled nursing facility (03) | DRG 351 ==
LOC: ED 04-24 00:58 → ICU 04-24 01:26 → PCU 04-26 18:59
PROVIDERS: Family Medicine; Internal Medicine; Admitting Provider Surgery; Emergency Provider Emergency Medicine; PCP Family Medicine; Visit Provider Surgery
PROC: 0YU74JZ Supplement Right Femoral Region with Synthetic Substitute, Percutaneous Endoscopic Approach (ICD-10-PCS; CPT 49320; principal; 2025-04-24 01:30)
DX: K41.30 Unilateral femoral hernia, with obstruction, without gangrene, not specified as recurrent (principal); J96.11 Chronic respiratory failure with hypoxia; N17.9 Acute kidney failure, unspecified; I13.0 Hypertensive heart and chronic kidney disease with heart failure and stage 1 through stage 4 chronic kidney disease, or unspecified chronic kidney disease; E11.40 Type 2 diabetes mellitus with diabetic neuropathy, unspecified; E11.22 Type 2 diabetes mellitus with diabetic chronic kidney disease; D64.89 Other specified anemias; I50.9 Heart failure, unspecified; Z99.81 Dependence on supplemental oxygen; J44.9 Chronic obstructive pulmonary disease, unspecified; I71.23 Aneurysm of the descending thoracic aorta, without rupture; F32.A Depression, unspecified; G25.81 Restless legs syndrome; E66.9 Obesity, unspecified; E86.0 Dehydration; E87.8 Other disorders of electrolyte and fluid balance, not elsewhere classified; G47.33 Obstructive sleep apnea (adult) (pediatric); E11.65 Type 2 diabetes mellitus with hyperglycemia; M79.7 Fibromyalgia; F41.9 Anxiety disorder, unspecified; E87.6 Hypokalemia; N18.2 Chronic kidney disease, stage 2 (mild); Z79.84 Long term (current) use of oral hypoglycemic drugs; G89.4 Chronic pain syndrome; Z87.891 Personal history of nicotine dependence; Z79.891 Long term (current) use of opiate analgesic; Z79.899 Other long term (current) drug therapy; R82.90 Unspecified abnormal findings in urine
CPT/HCPCS: 36415; 36569; 51702; 71045; 74018; 74177; 80048; 80051; 80053; 81001; 82010; 82150; 82728; 82962; 83036; 83540; 83550; 83605; 83690; 83735; 84100; 85025; 86850; 86900; 86901; 87070; 87077; 87086; 87088; 87186; 87205; 88302; 93005; 94640; 94668; 94762; 97116; 97163; 97167; 97530; 97535; 97802; 99285; Q9967; A4216; C1781; J2405

== ENCOUNTER 2025-04-30 15:15 | Inpatient (IN) | payer MEDICARE, SELFPAY ==
--- OUTSIDE RECORDS SUMMARY | 2025-04-30 15:30 | XMS RPT_ITS | CCD ---
Author Organization [facility] Care Team Providers Care Lead Loader Name Role Phone SCOOTER JUAREZ Admitting Unavailable [...] Provider Dr. Burke Velez Attending Provider Rachel ORDER MANAGEMENT SPECIALIST, ORDER MANAGEMENT SPECIALIST-C Ajay Attending Provider Rachel ORDER MANAGEMENT SPECIALIST, ORDER MANAGEMENT SPECIALIST-C Ajay Other Provider Dr. Jalyn Smith Primary Care Provider Jalyn Smith MD Primary Care Provider Brady Avila MD Unavailable October Darlene FLORES Unavailable Jalyn Smith MD Primary Care Provider October Darlene FLORES Unavailable Jalyn Smith MD Primary Care Provider Austin MISTRY, Brady Unavailable May RN, Darlene Islas Unavailable Tami RN, Selene Unavailable Dr. Jalyn Smith Primary Care Provider [...] Care Provider Tami FLORES, Selene Unavailable Haagen CHEST PAINTING AND SEALING SUPERVISOR.CORROSION CONTROL ENGINEER, Marjan Unavailable Suppan CHEST PAINTING AND SEALING SUPERVISOR.CORROSION CONTROL ENGINEER, Casandra A Unavailable Suppan CHEST PAINTING AND SEALING SUPERVISOR.CORROSION CONTROL ENGINEER, Casandra A Unavailable Dr. Jalyn Smith MD [...] [LISINOPRIL] Drug Allergy 7 Other: See Comments [facility] Work Phone: (20 sources) pregabalin; Translations: [PREGABALIN] Drug Allergy 9 Swelling [facility] Work Phone: (1 source) Lisinopril Drug Allergy 5 [facility] Repository (1 source) pregabalin Drug Allergy 5 [facility] Medications Current Medications Medication Drug Class(es) [...] every 6 hours as needed for Pain. [id number] 200 actuat albuterol 0.09 mg/actuat metered dose [...] (20 sources) Corticosteroid, beta2-Adrenergic Agonist Start: 09-04-2024 Vjlxsqjuvf-Wlljbxes-Vqx moterol [Budesonide 160 Mcg-Glycopyr 9 Mcg-Formot 4.8 Mcg/Actuation Hfa Inhaler] (Budesonide 160 Mcg-Glycopyr 9 Mcg-Formot 4.8 ) 160-9-4.8 mcg/actuation HFA aerosol inhaler Active 2 NMA INHALATION TWICE A DAY September 04, 2024 12:00am Start: 05-17-2024 End: 11-29-2025 take 2 puff(s) by inhalation twice daily eczfsfhkdq-ytwpuqgy-gdcfemidfo (BREZTRI AEROSPHERE) 160-9-4.8 mcg/actuation HFA aerosol inhaler Indications: COPD, severe (HCC) Inhale 2 puffs as instructed two times a day. 3 each 3 11/29/2024 11/29/2025 Active Start: 02-01-2024 End: 07-30-2024 take 2 puff(s) by inhalation twice daily qboqtlwdby-ocbpmhcx-mtablaijhd (BREZTRI) 160-9-4.8 mcg/actuation HFA aerosol inhaler Indications: COPD, severe (HCC) Inhale 2 Puffs as instructed two times a day. 10.7 g 5 02/01/2024 05/17/2024 Discontinued Start: 11-18-2023 End: 11-17-2024 take 2 puff(s) by inhalation twice daily jtsxmvfajo-wtkunwts-ppfeixrdfa (BREZTRI) 160-9-4.8 mcg/actuation HFA aerosol inhaler Indications: COPD, severe (HCC) Inhale 2 Puffs as instructed two times a day. 32.1 g 3 11/18/2023 02/01/2024 Discontinued Start: 09-30-2023 End: 11-18-2023 take 2 puff(s) by inhalation twice daily rkqbegosug-vcicsloz-iemlxpfwow (BREZTRI) 160-9-4.8 mcg/actuation HFA aerosol inhaler Indications: [...] on above: Take 1 capsule by mo [facility] every 6 hours. Take 1 capsule by mo [facility] four times daily for 10 days. COMPOUNDED [...] (FLONASE) 50 mcg/actuation nasal spray Use 1 [place] in each nostril once daily. 1 Each 5 02/22/2021 05/12/2022 Discontinued Comment on above: Use 1 [place] in each nostril once daily. USE 1 [...] less than 100 Take [facility] Hold if HR is less [...] Comment on above: Take 1 capsule by [facility] twice daily with meals for 7 days. [...] on above: Take 3 tablets by mo [facility] daily at bedtime. sertraline 50 mg oral [...] day. docusate sodium 50 mg / sennosides, half-way 8.6 mg oral tablet (19 sources) Start: [...] Comment on above: Take 2 tablets by [facility] twice daily. iv contrast (will be provided [...] Discontinued Start: 08-27-2020 take 1 tablet by daniel th once daily multivitamin tablet Take 1 [...] Basophils (Bld) [#/Vol] 0.04 10*3/uL Normal <0.11 [facility] Comment on above: Order Comment: Rg burgos Type: BLOOD SPECIMEN Ordering Facility: [facility] Address: [address] [place] [address] Performed By: #### 5 7021-8 #### [facility] CLIA [id number] [address] [place] [address] [place] Basophils/100 WBC (Bld) 0.7 % Normal [facility] Comment on above: Order Comment: Rg burgos Type: BLOOD SPECIMEN Ordering Facility: [facility] Address: [address] [place] [address] Performed By: #### 5 7021-8 #### [facility] CLIA [id number] [address] [place] [address] [place] Differential cell count method Nom (Bld) Auto Normal [facility] Comment on above: Order Comment: Rg burgos Type: BLOOD SPECIMEN Ordering Facility: [facility] Address: [address] [place] [address] Performed By: #### 5 7021-8 #### [facility] CLIA [id number] [address] [place] [address] [place] Eosinophils (Bld) [#/Vol] 0.11 10*3/uL Normal <0.46 [facility] Comment on above: Order Comment: Speci men Type: BLOOD SPECIMEN Ordering Facility: [facility] Address: [address] [place] [address] Performed By: #### 5 7021-8 #### [facility] CLIA [id number] [address] [place] [address] [place] Eosinophils/100 WBC (Bld) 1.9 % Normal [facility] Comment on above: Order Comment: Speci men Type: BLOOD SPECIMEN Ordering Facility: [facility] Address: [address] [place] [address] Performed By: #### 5 7021-8 #### [facility] CLIA [id number] [address] [place] [address] [place] Erythrocyte distribution width (RBC) [Ratio] 13.0 % Normal 11.5-15.0 [facility] Comment on above: Order Comment: Speci men Type: BLOOD SPECIMEN Ordering Facility: [facility] Address: [address] [place] [address] Performed By: #### 5 7021-8 #### [facility] CLIA [id number] [address] [place] [address] [place] Hematocrit (Bld) [Volume fraction] 33.9 % Low 36.0-46.0 [facility] Comment on above: Order Comment: Speci men Type: BLOOD SPECIMEN Ordering Facility: [facility] Address: [address] [place] [address] Performed By: #### 5 7021-8 #### [facility] CLIA [id number] [address] [place] [address] [place] Hemoglobin (Bld) [Mass/Vol] 10.9 g/dL Low 11.5-15.5 [facility] Comment on above: Order Comment: Speci men Type: BLOOD SPECIMEN Ordering Facility: [facility] Address: [address] [place] [address] Performed By: #### 5 7021-8 #### [facility] CLIA [id number] [address] [place] [address] [place] Immature granulocytes (Bld) [#/Vol] 0.03 10*3/uL Normal <0.10 [facility] Comment on above: Order Comment: Speci men Type: BLOOD SPECIMEN Ordering Facility: [facility] Address: [address] [place] [address] Performed By: #### 5 7021-8 #### [facility] CLIA [id number] [address] [place] [address] [place] Immature granulocytes/100 WBC (Bld) 0.5 % Normal [facility] Comment on above: Order Comment: Speci men Type: BLOOD SPECIMEN Ordering Facility: [facility] Address: [address] [place] [address] Performed By: #### 5 7021-8 #### [facility] CLIA [id number] [address] [place] [address] [place] Lymphocytes (Bld) [#/Vol] 0.90 10*3/uL Low 1.00-4.00 [facility] Comment on above: Order Comment: Speci men Type: BLOOD SPECIMEN Ordering Facility: [facility] Address: [address] [place] [address] Performed By: #### 5 7021-8 #### [facility] CLIA [id number] [address] [place] [address] [place] Lymphocytes/100 WBC (Bld) 15.2 % Normal [facility] Comment on above: Order Comment: Speci men Type: BLOOD SPECIMEN Ordering Facility: [facility] Address: [address] [place] [address] Performed By: #### 5 7021-8 #### [facility] CLIA [id number] [address] [place] [address] [place] MCH (RBC) [Entitic mass] 30.9 pg Normal 26.0-34.0 [facility] Comment on above: Order Comment: Speci men Type: BLOOD SPECIMEN Ordering Facility: [facility] Address: [address] [place] [address] Performed By: #### 5 7021-8 #### [facility] CLIA [id number] [address] [place] [address] [place] MCHC (RBC) [Mass/Vol] 32.2 g/dL Normal 30.5-36.0 [facility] Comment on above: Order Comment: Speci men Type: BLOOD SPECIMEN Ordering Facility: [facility] Address: [address] [place] [address] Performed By: #### 5 7021-8 #### [facility] CLIA [id number] [address] [place] [address] [place] MCV (RBC) [Entitic vol] 96.0 fL Normal 80.0-100.0 [facility] Comment on above: Order Comment: Speci men Type: BLOOD SPECIMEN Ordering Facility: [facility] Address: [address] [place] [address] Performed By: #### 5 7021-8 #### [facility] CLIA [id number] [address] [place] [address] [place] Monocytes (Bld) [#/Vol] 0.67 10*3/uL Normal <0.87 [facility] Comment on above: Order Comment: Speci men Type: BLOOD SPECIMEN Ordering Facility: [facility] Address: [address] [place] [address] Performed By: #### 5 7021-8 #### [facility] CLIA [id number] [address] [place] [address] [place] Monocytes/100 WBC (Bld) 11.3 % Normal [facility] Comment on above: Order Comment: Speci men Type: BLOOD SPECIMEN Ordering Facility: [facility] Address: [address] [place] [address] Performed By: #### 5 7021-8 #### [facility] CLIA [id number] [address] [place] [address] [place] Neutrophils (Bld) [#/Vol] 4.17 10*3/uL Normal 1.45-7.50 [facility] Comment on above: Order Comment: Speci men Type: BLOOD SPECIMEN Ordering Facility: [facility] Address: [address] [place] [address] Performed By: #### 5 7021-8 #### [facility] CLIA [id number] [address] [place] [address] [place] Neutrophils/100 WBC (Bld) 70.4 % Normal [facility] Comment on above: Order Comment: Speci men Type: BLOOD SPECIMEN Ordering Facility: [facility] Address: [address] [place] [address] Performed By: #### 5 7021-8 #### [facility] CLIA [id number] [address] [place] [address] [place] Nucleated RBC (Bld) [#/Vol] 10*3/uL Normal <0.01 [facility] Comment on above: Order Comment: Speci men Type: BLOOD SPECIMEN Ordering Facility: [facility] Address: [address] [place] [address] Performed By: #### 5 7021-8 #### [facility] CLIA [id number] [address] [place] [address] [place] Nucleated RBC/100 WBC (Bld) [Ratio] 0.0 /100 WBC Normal [facility] Comment on above: Order Comment: Speci men Type: BLOOD SPECIMEN Ordering Facility: [facility] Address: [address] [place] [address] Performed By: #### 5 7021-8 #### [facility] CLIA [id number] [address] [place] [address] [place] Platelet mean volume (Bld) [Entitic vol] 9.7 fL Normal 9.0-12.7 [facility] Comment on above: Order Comment: Speci men Type: BLOOD SPECIMEN Ordering Facility: [facility] Address: [address] [place] [address] Performed By: #### 5 7021-8 #### [facility] CLIA [id number] [address] [place] [address] [place] Platelets (Bld) [#/Vol] 211 10*3/uL Normal 150-400 [facility] Comment on above: Order Comment: Speci men Type: BLOOD SPECIMEN Ordering Facility: [facility] Address: [address] [place] [address] Performed By: #### 5 7021-8 #### [facility] CLIA [id number] [address] [place] [address] [place] RBC (Bld) [#/Vol] 3.53 10*6/uL Low 3.90-5.20 [facility] Comment on above: Order Comment: Speci men Type: BLOOD SPECIMEN Ordering Facility: [facility] Address: [address] [place] [address] Performed By: #### 5 7021-8 #### [facility] CLIA [id number] [address] [place] [address] [place] WBC (Bld) [#/Vol] 5.92 10*3/uL Normal 3.70-11.00 [facility] Comment on above: Order Comment: Speci men Type: BLOOD SPECIMEN Ordering Facility: [facility] Address: [address] [place] [address] Performed By: #### 5 7021-8 #### [facility] CLIA [id number] [address] [place] [address] [place] CNOVon 03-22-2025 CNOV Office Visit (FAMPWS ) -------- KANDI CORREIA ([id number]) 1945 F Date Time Provider Department 03/22/25 1:00 PM JALYN SMITHWS During your visit today, we recorded [...] PCP - General (Family Medicine) Marjan Reid APRN.CORROSION CONTROL ENGINEER as R&D Lab Technician (Family Medicine) Casandra Kinsey APRN.CNP as R&D Lab Technician (Family Medicine) Dr Tompkins, optometry and Dr. [...] BiPAP for sleep. - Denies seeing a podiatric medicine doctor. - Denies changes in bowel habits, hematochezia, melena, dysuria, urinary frequency, or hematuria. COPD: - On 3L O2 at home, 2L when going out. - Takes Mucinex regularly. - Follow-up with Dr. Mayfield at 1430 today for pulmonary function testing to assess continued need for home oxygen. Anxiety and Depression: - Feels "stressed" by everyday life and worries about family, [...] new lancet device. - Last A1c was "pretty good." Lifestyle: - Exercises about 10 minutes a day, once a week, mostly walking around the house. - Eats a healthy diet several days a week; sister helps with grocery shopping. - Consumes alcohol occasionally; has half a bottle of wine left from last [place]. - Does not drive; gave car to grandson. - Sleeps well; has a clock with a laser that projects the time on the ceiling. R (more content not included)... Normal [facility] Comprehensive metabolic 2000 panelon 03-22-2025 Albumin [Mass/Vol] 4.3 g/dL Normal 3.9-4.9 [facility] Comment on above: Order Comment: Speci men Type: BLOOD SPECIMENOrdering Facility: [facility] Address: [address] [place] [address] Performed By: #### 2 432-8 ####[facility] [id number] [place] [address] [place] ALP [Catalytic activity/Vol] 77 U/L Normal 34-123 [facility] Comment on above: Order Comment: Speci men Type: BLOOD SPECIMENOrdering Facility: [facility] Address: [address] [place] [address] Performed By: #### 2 4323-8 ####[facility] [id number] [place] [address] [place] ALT [Catalytic activity/Vol] 10 U/L Normal 7-38 [facility] Comment on above: Order Comment: Speci men Type: BLOOD SPECIMENOrdering Facility: [facility] Address: [address] [place] [address] Performed By: #### 2 4323-8 ####[facility] [id number] [place] [address] [place] Anion gap [Moles/Vol] 10 mmol/L Normal 8-15 [facility] Comment on above: Order Comment: Speci men Type: BLOOD SPECIMENOrdering Facility: [facility] Address: [address] [place] [address] Performed By: #### 2 4323-8 ####[facility] [id number] [place] [address] [place] AST [Catalytic activity/Vol] 19 U/L Normal 13-35 [facility] Comment on above: Order Comment: Speci men Type: BLOOD SPECIMENOrdering Facility: [facility] Address: [address] [place] [address] Performed By: #### 2 4323-8 ####[facility] [id number] [place] [address] [place] Bilirubin [Mass/Vol] 0.3 mg/dL Normal 0.2-1.3 [facility] Comment on above: Order Comment: Speci men Type: BLOOD SPECIMENOrdering Facility: [facility] Address: [address] [place] [address] Performed By: #### 2 4323-8 ####[facility] [id number] [place] [address] [place] Calcium [Mass/Vol] 9.5 mg/dL Normal 8.5-10.2 [facility] Comment on above: Order Comment: Speci men Type: BLOOD SPECIMENOrdering Facility: [facility] Address: [address] [place] [address] Performed By: #### 2 4323-8 ####[facility] [id number] [place] [address] [place] Chloride [Moles/Vol] 97 mmol/L Low 98-107 [facility] Comment on above: Order Comment: Speci men Type: BLOOD SPECIMENOrdering Facility: [facility] Address: [address] [place] [address] Performed By: #### 2 4323-8 ####[facility] [id number] [place] [address] [place] CO2 [Moles/Vol] 34 mmol/L High 22-30 [facility] Comment on above: Order Comment: Speci men Type: BLOOD SPECIMENOrdering Facility: [facility] Address: [address] [place] [address] Performed By: #### 2 4323-8 ####[facility] [id number] [place] [address] [place] Creatinine [Mass/Vol] 1.10 mg/dL High 0.58-0.96 [facility] Comment on above: Order Comment: Rg burgos Type: BLOOD SPECIMENOrdering Facility: [facility] Address: [address] [place] [address] Performed By: #### 2 4323-8 ####[facility] [id number] [place] [address] [place] eGFRcr SerPlBld CKD-EPI 2020 52 mL/min/1.73m??? Low >=60 [facility] Comment on above: Order Comment: Rg burgos Type: BLOOD SPECIMENOrdering Facility: [facility] Address: [address] [place] [address] Result Comment: Nara mated Glomerular Filtration Rate [...] actual GFR. Performed By: #### 2 4323-8 ####[facility] [id number] [place] [address] [place] Glucose [Mass/Vol] 64 mg/dL Low 74-99 [facility] Comment on above: Order Comment: Rg burgos Type: BLOOD SPECIMENOrdering Facility: [facility] Address: [address] [place] [address] Result Comment: The [place] Diabetes Association (ADA) provides guidance for cutoff [...] Standards of Medical Care in Diabetes 2016, [place] [employer]. Diabetes Care. 2016.39(Suppl 1). Performed By: #### 2 4323-8 ####[facility] [id number] [place] [address] [place] Potassium [Moles/Vol] 4.0 mmol/L Normal 3.7-5.1 [facility] Comment on above: Order Comment: Speci men Type: BLOOD SPECIMENOrdering Facility: [facility] Address: [address] [place] [address] Performed By: #### 2 432-8 ####[facility] [id number] [place] [address] [place] Protein [Mass/Vol] 6.9 g/dL Normal 6.3-8.0 [facility] Comment on above: Order Comment: Speci men Type: BLOOD SPECIMENOrdering Facility: [facility] Address: [address] [place] [place] [address] Performed By: #### 2 432-8 ####[facility] [id number] [place] [address] [place] Sodium [Moles/Vol] 141 mmol/L Normal 136-144 [facility] Comment on above: Order Comment: Speci men Type: BLOOD SPECIMENOrdering Facility: [facility] Address: [address] [place] [address] Performed By: #### 2 4322-8 ####[facility] [id number] [place] [address] [place] Urea nitrogen [Mass/Vol] 23 mg/dL High 7-21 [facility] Comment on above: Order Comment: Speci men Type: BLOOD SPECIMENOrdering Facility: [facility] Address: [address] [place] [address] Performed By: #### 2 4323-8 ####[facility] [id number] [address] HbA1c (Bld)on 03-22-2025 Average glucose Estimated from glycated hemoglobin (Bld) [Mass/Vol] 105 mg/dL Normal [facility] Comment on above: Order Comment: Rg burgos Type: BLOOD SPECIMENOrdering Facility: [facility] Address: [address] [place] [place] [address] Result Comment: eAG: (Estimated average glucose) is a calculated value from HgbA1c and is mill representative of the average blood glucose level in the last 2-3 month period. Performed By: #### 5 5454-3 ####[facility] [id number] [address] HbA1c (Bld) [Mass fraction] 5.3 % Normal 4.3-5.6 [facility] Comment on above: Order Comment: Rg burgos Type: BLOOD SPECIMENOrdering Facility: [facility] Address: [address] [place] [address] Result Comment: [place] Diabetes Association guidelines indicate that patients with HgbA1c in the range 5.7-6.4% are at increased risk for development of diabetes, and intervention by lifestyle modification may be beneficial. HgbA1c greater or equal to 6.5% is considered diagnostic of diabetes. Performed By: #### 5 5454-3 ####[facility] [id number] [address] CNOVon 03-08-2025 CNOV Office Visit (PULMWS ) -------- KANDI CORREIA ([id number]) 1945 F Date Time Provider Department 03/08/25 11:30 AM ORAL PERDUE PULSHANTEL During your visit today, we recorded the following information about you: Pulse Respiration 68/minute 16/minute Oral Perdue CHEST PAINTING AND SEALING SUPERVISOR.REJI 03/08/2025 12:25 PM Signed Pulmonary Medicine Patients name: Kandi Correia PCP: Jalyn Smith MD CC: follow-up HPI: Kandi Correia is a 79 year old female former 45-jqab-pwcj smoker having quit in 2011 with PMH [...] changes. Does not often use Albuterol. 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 Normal [facility] 01-24-2025 [facility] Telephone ([facility]) -------- KANDI CORREIA ([id number]) 1945 F Date Time Provider Department 01/24/25 [facility] During your visit today, we recorded the [...] two times a day with meals. - xyjakxwjvf-sfkfqfyd-mmbh oterol (BREZTRI AEROSPHERE) 160-9-4.8 mcg/actuation HFA aerosol [...] this patient by: PATIENT Maria Alejandra Nolan (Deputy Sheriff Custody) Problem List As Of Date 01/24/2025 Noted [...] Encounter Status:Closed by KALPANA SHARIF on 01/25/25 [facility] 01-09-2025 REJIN Telephone (FAMPWS) -------- KANDI CORREIA ([id number]) 1945 F Date Time Provider Department 01/09/25 [...] need forms from Dr. Smith as well. Kasron asking if provider would be able to fill the forms out that they need without an appointment as she doesn't have any availability to bring her in for an appointment prior to the procedure. Karson requests call back at [phone]. SANDRA Massey William J, MD 01/09/2025 1:37 [...] two times a day with meals. - vizkgosqpv-xckoeugu-oiaw oterol (BREZTRI AEROSPHERE) 160-9-4.8 mcg/actuation HFA aerosol [...] this patient by: PATIENT Maria Alejandra Nolan (Deputy Sheriff Custody) Problem List As Of Date 01/09/2025 Noted [...] (HCC) [I71*04/ (more content not included)... Normal [facility] CTA ABD/PELV W IVCONon 12-02 CTA ABD/PELV W IVCON * * *Final Report* * * DATE OF EXAM: Dec 02 2024 2:02PM [facility] 0466 - CTA ABD/PELV W IVCON / [...] are unchanged from prior study, detailed above. Health Promotion Officer: PSCB Transcribe Date/Time: Dec 02 2024 3:03P Dictated by : ROBBIE LEON MD This examination was interpreted and the report reviewed and electronically signed by: ROBBIE LEON MD on Dec 02 2024 3:09PM EST [id number] Normal [facility] CTA Abdominal vessels and Pe lvis vessels W contrast Umer 12-02-2024 IMPRESSION: Unchanged aortic dissection in the abdomen and pelvis. Other vascular findings are unchanged from prior study, detailed above. Health Promotion Officer: [facility] Transcribe Date/Time: Dec 02 2024 3:03P Dictated by : ROBBIE LEON MD This examination was interpreted and the report reviewed and electronically signed by: ROBBIE LEON MD on Dec 02 2024 3:09PM [facility] * * *Final Report* * * DATE OF EXAM: Dec 02 2024 2:02PM [facility] 0466 - CTA ABD/PELV W IVCON / [...] or fluid collection. Bones/Soft Tissues: Degenerative changes. [facility] * * *Final Report* * * DATE OF EXAM: Dec 02 2024 2:02PM [facility] 0466 - CTA ABD/PELV W IVCON / [...] are unchanged from prior study, detailed above. Health Promotion Officer: SWATI Transcribe Date/Time: Dec 02 2024 3:03P Dictated by : ROBBIE LEON MD This examination was interpreted and the report reviewed and electronically signed by: ROBBIE LEON MD on Dec 02 2024 3:09PM [facility] Radiology Study observation (narrative) [facility] CT[facility] Abdominal vessels and Pe lvis vessels W contrast IVOrdered By: Ccf Provider on 12-02-2024 [facility] Creatinine + eGFR Pnl SerPlB ldon 12-02-2024 Creatinine and Glomerular filtration rate.predicted panel (S/P/Bld) 67 mL/min/1.73m??? Normal >=60 [facility] Comment on above: Order Comment: Rg bugros Type: BLOOD SPECIMEN Ordering Facility: [facility] Address: [address] [place] [address] Result Comment: [facility] Glomerular Filtration Rate (eGFR) is calculated using [...] GFR. Performed By: #### 4 5066-8 #### [facility] CLIA [id number] [address] OF [facility] Creatinine and Glomerular fi ltration rate.predicted panel (S/P/Bld)on 12-02-2024 Creatinine [Mass/Vol] 0.89 mg/dL Normal 0.58-0.96 [facility] Comment on above: Order Comment: Rg burgos Type: BLOOD SPECIMEN Ordering Facility: [facility] Address: [address] [place] [address] Performed By: #### 4 5066-8 #### [facility] CLIA [id number] [address] [place] [address] [place] NURSING PROGon 12-02-2024 NURSING PROG HNO ID: [id number] Author: ELY DAY, SANDRA Service: Radiology Author Type: Registered Nurse Type: [...] DATE: December 02, 2024 TIME: 1:36 PM [facility] 10-18-2024 [facility] Telephone (VASD) -------- KANDI CORREIA ([id number]) 1945 F Date Time Provider Department 10/18/24 YANIV TODD During your visit today, we recorded the following information about you: Gale Eckert RN 10/18/2024 4:29 PM Signed Type of form: Medical clearance ( cataract surgery) Form received via fax When form is completed, Fax form to [phone] Form has been forwarded to nurse SANDRA Meehan Melissa, RN 10/21/2024 2:[address] Todd patient will need to have f/u and then can provide clearance. Attempted to call hemal marie [phone], they are out of the office Will [...] 1 tablet by mouth once daily. - axgvrippyd-fpoymloc-ljzx oterol (BREZTRI AEROSPHERE) 160-9-4.8 mcg/actuation HFA aerosol [...] this patient by: PATIENT Maria Alejandra Nolan (Deputy Sheriff Custody) Problem List As Of Date 10/18/2024 Noted [...] Status:Closed by GALE ECKERT on 10/26/24 Normal [facility] ALBUMIN/CREATININE RATIO, UR INEon 09-07-2024 Albumin DL <= 20 mg/L (U) [Mass/Vol] mg/dL Normal [facility] Comment on above: Order Comment: Speci men Type: URINE SPECIMENOrdering Facility: [facility] Address: [address] [place] [address] Performed By: #### U ACR ####[facility] [id number] [place] [address] [place] Albumin/Creatinine (U) [Mass ratio] <12 Normal <30 [facility] Comment on above: Order Comment: Speci men Type: URINE SPECIMENOrdering Facility: [facility] Address: [address] [place] [address] Result Comment: Adul t Male and Female Nephrotic Criteria: <30 mg/g is considered normal to mildly increased 30-300 mg/g is considered moderately increased >300 mg/g is considered severely increased KDIGO. (2013). KDIGO 2012 Clinical Practice Guideline for the Evaluation and Management of Chronic Kidney Disease. Official Journal of the International Society of Nephrology, 3(1), 1-150. Performed By: #### U ACR ####[facility] [id number] [place] [address] [place] Creatinine (U) [Mass/Vol] 101.2 mg/dL Normal 20.0-300.0 [facility] Comment on above: Order Comment: Speci men Type: URINE SPECIMENOrdering Facility: [facility] Address: [address] [place] [address] Performed By: #### U ACR ####[facility] [id number] [place] [id number] [place] CNOVon 09-07-2024 CNOV Office Visit (FAMPWS ) -------- KANDI CORREIA ([id number]) 1945 F Date Time Provider Department 09/07/24 [...] Reason for visit: abd pain Which facility: [facility] Date of visit: 3/31/25 Diagnosis: abd pain Testing done: CT scan, [...] Take 1 tablet by mouth once daily. dhhxdymsoo-cnffgnai-xaqk oterol (BREZTRI AEROSPHERE) 160-9-4.8 mcg/actuation HFA aerosol [...] HISTORY Diagnosis Date AAA (abdominal aortic aneurysm) ([facility]) Abdominal aortic aneurysm (AAA) without rupture ([facility]) 09/09/2023 Aneurysm of left common iliac artery ([facility]) 11/05/2023 Aneurysm, thoracic aortic ([facility]) Arthritis Centrilobular emphysema ([facility]) 10/01/2022 Chronic pain Chronic respiratory failure with hypoxia ([facility]) 05/24/2019 Chronic venous stasis dermatitis COPD (chronic obstructive pulmonary disease) ([facility]) Degenerative disc disease Depression Descending thoracic aortic dissection ([facility]) 12/22/[address] 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 Normal [facility] HbA1c (Bld)on 09-07-2024 Average glucose Estimated from glycated hemoglobin (Bld) [Mass/Vol] 100 mg/dL Normal [facility] Comment on above: Order Comment: Rg burgos Type: BLOOD SPECIMEN Ordering Facility: [facility] Address: [address] [place] [address] Result Comment: eAG: (Estimated average glucose) is a calculated value from HgbA1c and is mill representative of the average blood glucose level in the last 2-3 month period. Performed By: #### 5 5454-3 #### [facility] CLIA [id number] [address] [place] [address] [place] HbA1c (Bld) [Mass fraction] 5.1 % Normal 4.3-5.6 [facility] Comment on above: Order Comment: Rg burgos Type: BLOOD SPECIMEN Ordering Facility: [facility] Address: [address] [place] [address] Result Comment: Amer ican Diabetes Association guidelines indicate that patients with HgbA1c in the range 5.7-6.4% are at increased risk for development of diabetes, and intervention by lifestyle modification may be beneficial. HgbA1c greater or equal to 6.5% is considered diagnostic of diabetes. Performed By: #### 5 5454-3 #### [facility] CLIA [id number] [address] [place] [address] [place] LIPID PANEL, NONFASTINGon Cholesterol [Mass/Vol] 188 mg/dL Normal <200 [facility] Comment on above: Order Comment: Rg [facility] Type: BLOOD SPECIMENOrdering Facility: [facility] Address: [address] [place] [address] Result Comment: <200 mg/dL, Desirable 200-239 mg/dL, Borderline high >239 mg/dL, High Performed By: #### 1 9123-9, LIPNF ####[facility] [id number] [place] [address] [place] HDL CHOLESTEROL, NF 58 mg/dL Normal >39 [facility] Comment on above: Order Comment: Speci aubrey Type: BLOOD SPECIMENOrdering Facility: [facility] Address: [address] [place] [address] Result Comment: 40-5 9 mg/dL, Acceptable >59 mg/dL, High: Negative risk factor for coronary heart disease <40 mg/dL, Low: Positive risk factor for coronary heart disease Performed By: #### 1 9123-9, LIPNF ####[facility] [id number] [address] LDL CHOLESTEROL, NF 98 mg/dL Normal <100 [facility] Comment on above: Order Comment: Charumelonie burgos Type: BLOOD SPECIMENOrdering Facility: [facility] Address: [address] [place] [address] Result Comment: <100 mg/dL, Optimal 100-129 mg/dL, Near optimal/above optimal 130-159 mg/dL, Borderline high 160-189 mg/dL, High >189 mg/dL, Very high Secondary prevention optimal LDL Cholesterol levels are recommended to be < 70 mg/dL Performed By: #### 1 9123-9, LIPNF ####[facility] [id number] [address] LDL/HDL RATIO, NF 1.69 mg/dL Normal <2.54 [facility] Comment on above: Order Comment: Rg burgos Type: BLOOD SPECIMENOrdering Facility: [facility] Address: [address] [place] [address] Result Comment: Refe rence: 1. National Cholesterol Education Program ATP III Guideline At-A-Glance Quick Desk Reference: National Heart, Lung, and Blood [place]. National Institutes of Health. 2001: NIH Publication No. 01-3305. 2. An International Atherosclerosis Society position paper: global recommendations for the management of dyslipidemia: executive summary, Atherosclerosis. 2014: 232(2):410-413. Performed By: #### 1 9123-9, LIPNF ####[facility] [id number] [place] [address] [place] NON HDL CHOL, NF 130 mg/dL High <[address] [facility] Comment on above: Order Comment: Speci men Type: BLOOD SPECIMENOrdering Facility: [facility] Address: [address] [place] [address] Result Comment: <130 mg/dL, Optimal 130-159 mg/dL, Near optimal/above optimal 160-189 mg/dL, Borderline high 190-219 mg/dL, High >219 mg/dL, Very high Secondary prevention optimal non HDL Cholesterol levels are recommended to be <100 mg/dL Performed By: #### 1 9123-9, LIPNF ####[facility] [id number] [place] [address] [place] T CHOL/HDL RATIO NF 3.24 mg/dL Normal <5.10 [facility] Comment on above: Order Comment: Speci men Type: BLOOD SPECIMENOrdering Facility: [facility] Address: [address] [place] [address] Performed By: #### 1 9123-9, LIPNF ####[facility] [id number] [place] [address] [place] TRIGLYCERIDES, NF 158 mg/dL High <150 [facility] Comment on above: Order Comment: Speci men Type: BLOOD SPECIMENOrdering Facility: [facility] Address: [address] [place] [address] Result Comment: <150 mg/dL, Normal 150-199 mg/dL, Borderline high 200-499 mg/dL, High >499 mg/dL, Very high Performed By: #### 1 9123-9, LIPNF ####[facility] [id number] [place] [address] [place] VLDL CHOLESTEROL, NF 32 mg/dL High <30 [facility] Comment on above: Order Comment: Speci men Type: BLOOD SPECIMENOrdering Facility: [facility] Address: [address] [place] [address] Performed By: #### 1 9123-9, LIPNF ####[facility] [id number] [place] [id number] [place] Magnesium SerPl-mCncon 09-07 Magnesium [Mass/Vol] 1.9 mg/dL Normal 1.7-2.3 [facility] Comment on above: Order Comment: Speci men Type: BLOOD SPECIMENOrdering Facility: [facility] Address: [address] [place] [address] Performed By: #### 1 9123-9, LIPNF ####[facility] [id number] [place] [id number] [place] Urine Cultureon 09-06-2024 [facility] Escherichia coli [place] Count >100,000 Escherichia coli: REACTION Ampicillin Islt SHENA <=2 Ampicillin+Sulbac Islt SHENA <=2 S Cefepime Islt SHEAN <=0.12 S cefTRIAXone Islt SHENA <=0.25 S Ciprofloxacin Islt SHENA >=4 R B-Lactamase Extended Susc Islt NEG Gentamicin Islt SHENA <=1 S levoFLOXacin Islt SHENA >=8 R Meropenem Islt SHENA <=0.25 S Nitrofurantoin Islt SHENA <=16 S Pip+Tazo Islt SHENA <=4 S TMP SMX Islt SHENA <=20 S Normal [facility] Comment on above: Performed By: #### M 100.2200 #### [facility] [address] [place], [place], [address] Abdomen/Pelvis W IV Cont ONL Yon 09-04-2024 Abdomen/Pelvis W IV Cont ONLY [facility] Imaging Services [address] [place], [place] [address] Abdomen/Pelvis W IV Cont ONLY MR#: [id number] Acct: [id number] Name: KANDI CORREIA Rep #: [id number] : 1945 F 79 From: Frieda Brooke nd, MD PCP: Dr. Jalyn Rockdale, MD Status: REG ER Study: Abdomen/Pelvis W IV Cont ONLY Date of Exam: Exam# [id number] Ordering Dr: Viraj Dozier DO PROCEDURE: ABDOMEN/PELVIS [...] for stability. 3. Mild hepatomegaly. Reading Location: [id number] CC: Dr. Viraj Dozier DO; Dr. Jalyn Smith MD Health Promotion Officer: Signed Normal [facility] Absolute neutrophil countOrd ered By: Viraj Dozier on 09-04-2024 Neutrophils (Bld) [#/Vol] 3.9 10*3/uL 2.0-7.7 [facility] Anion gap in Serum or Plasma Ordered By: Viraj Dozier on 09-04-2024 Anion gap [Moles/Vol] 12 mmol/L 5-15 [facility] BUN/creatinine ratioOrdered By: Viraj Dozier on 09-04-2024 Urea nitrogen/Creatinine [Mass ratio] 23.6 mg/mg High 10-20 [facility] Basic Metabolic Profile (BMP )on 09-04-2024 BUN/CRE 23.6 RATIO High 10-20 [facility] Comment on above: Performed By: #### L 100.0100, L500.2500, L501.2450, L500.3400 #### [facility] [address] [place], [address] Calcium [Mass/Vol] 9.2 mg/dL Normal 7.6-11.0 [facility] Comment on above: Performed By: #### L 100.0100, L500.2500, L501.2450, L500.3400 #### [facility] [address] [place], [address] Chloride [Moles/Vol] 98 mmol/L Normal 98-[address] [facility] Comment on above: Performed By: #### L 100.0100, L500.2500, L501.2450, L500.3400 #### [facility] [address] [place], [address] CO2 [Moles/Vol] 29.1 mmol/L Normal 21.0-32.0 [facility] Comment on above: Performed By: #### L 100.0100, L500.2500, L501.2450, L500.3400 #### [facility] [address] [place], [address] Creatinine [Mass/Vol] 1.07 mg/dL Normal 0.70-1.20 [facility] Comment on above: Performed By: #### L 100.0100, L500.2500, L501.2450, L500.3400 #### [facility] [address] [place], [address] ECRCL 43.22 ml/min Low 50-250 [facility] Comment on above: Performed By: #### L 100.0100, L500.2500, L501.2450, L500.3400 #### [facility] [address] [place], [address] GAP 12 Normal 5-15 [facility] Comment on above: Performed By: #### L 100.0100, L500.2500, L501.2450, L500.3400 #### [facility] [address] [place], [address] GFR/1.73 sq M.predicted among non-blacks MDRD (S/P/Bld) [Vol rate/Area] 53 mL/min/{1.73_m2} Low >60 [facility] Comment on above: Result Comment: mL/m in/1.73m2 CKD-EPI Creatinine Equation (2020) Performed By: #### L 100.0100, L500.2500, L501.2450, L500.3400 #### [facility] [address] [place], [address] Glucose [Mass/Vol] 114 mg/dL High 70-99 [facility] Comment on above: Performed By: #### L 100.0100, L500.2500, L501.2450, L500.3400 #### [facility] [address] [place], [address] Potassium [Moles/Vol] 3.6 mmol/L Normal 3.3-5.1 [facility] Comment on above: Performed By: #### L 100.0100, L500.2500, L501.2450, L500.3400 #### [facility] [address] [place], [address] Sodium [Moles/Vol] 140 mmol/L Normal 133-145 [facility] Comment on above: Performed By: #### L 100.0100, L500.2500, L501.2450, L500.3400 #### [facility] [address] [place], [address] Urea nitrogen [Mass/Vol] 25 mg/dL High 4-19 [facility] Comment on above: Performed By: #### L 100.0100, L500.2500, L501.2450, L500.3400 #### [facility] [address] [place], [address] Basophil percentageOrdered B y: Viraj Dozier on 09-04-2024 Basophils/100 WBC (Bld) 0.9 % 0-1 [facility] Bilirubin Test strip Ql (U)O rdered By: Viraj Dozier on 09-04-2024 Bilirubin Ql (U) Negative Negative [facility] Bilirubin directOrdered By: Viraj Dozier on 09-04-2024 Bilirubin.direct [Mass/Vol] 0.18 mg/dL 0.00-0.30 [facility] Bilirubin, totalOrdered By: Viraj Dozier on 09-04-2024 Bilirubin [Mass/Vol] 0.44 mg/dL 0.00-1.[address] [facility] CBC W/Diff, Automatedon 08-08 Absolute Lymph 0.81 X10 3/uL Low 0.83-4.51 [facility] Comment on above: Performed By: #### L 100.0100, L500.2500, L501.2450, L500.3400 #### [facility] [address] [place], [address] Absolute Neut 3.9 X10 3/uL Normal 2.0-7.7 [facility] Comment on above: Performed By: #### L 100.0100, L500.2500, L501.2450, L500.3400 #### [facility] [address] [place], [address] Basophils/100 WBC (Bld) 0.9 % Normal 0-1 [facility] Comment on above: Performed By: #### L 100.0100, L500.2500, L501.2450, L500.3400 #### [facility] [address] [place], [address] Eosinophils/100 WBC (Bld) 1.7 % Normal 0-5 [facility] Comment on above: Performed By: #### L 100.0100, L500.2500, L501.2450, L500.3400 #### [facility] [address] [place], [address] Erythrocyte distribution width (RBC) [Ratio] 13.0 % Normal 11.6-14.6 [facility] Comment on above: Performed By: #### L 100.0100, L500.2500, L501.2450, L500.3400 #### [facility] [address] [place], [address] Hematocrit (Bld) [Volume fraction] 32.2 % Low 37-47 [facility] Comment on above: Performed By: #### L 100.0100, L500.2500, L501.2450, L500.3400 #### [facility] [address] [place], [address] Hemoglobin (Bld) [Mass/Vol] 10.5 g/dL Low 12.0-15.0 [facility] Comment on above: Performed By: #### L 100.0100, L500.2500, L501.2450, L500.3400 #### [facility] [address] [place], [address] IG% 0.300 Normal 0.0-0.9 [facility] Comment on above: Result Comment: IG% - Immature Granulocytes (promyelocytes, myelocytes and metamyelocytes) > 1% indicates that a LEFT SHIFT is Present. Performed By: #### L 100.0100, L500.2500, L501.2450, L500.3400 #### [facility] [address] [place], [address] Lymphocytes/100 WBC (Bld) 14.2 % Low 19-41 [facility] Comment on above: Performed By: #### L 100.0100, L500.2500, L501.2450, L500.3400 #### [facility] [address] [place], [address] MCH (RBC) [Entitic mass] 30.7 pg Normal 27.0-32.0 [facility] Comment on above: Performed By: #### L 100.0100, L500.2500, L501.2450, L500.3400 #### [facility] [address] [place], [address] MCHC (RBC) [Mass/Vol] 32.6 g/dL Normal 32-36 [facility] Comment on above: Performed By: #### L 100.0100, L500.2500, L501.2450, L500.3400 #### [facility] [address] [place], [address] MCV (RBC) [Entitic vol] 94.2 fL Normal 81-99 [facility] Comment on above: Performed By: #### L 100.0100, L500.2500, L501.2450, L500.3400 #### [facility] [address] [place], [address] Monocytes/100 WBC (Bld) 14.5 % High 0-10 [facility] Comment on above: Performed By: #### L 100.0100, L500.2500, L501.2450, L500.3400 #### [facility] [address] [place], [address] Neutrophils/100 WBC (Bld) 68.4 % Normal 47-70 [facility] Comment on above: Performed By: #### L 100.0100, L500.2500, L501.2450, L500.3400 #### [facility] [address] [place], [address] Nucleated RBC (Bld) [#/Vol] 0 10*3/uL Normal 0-5 [facility] Comment on above: Performed By: #### L 100.0100, L500.2500, L501.2450, L500.3400 #### [facility] [address] [place], [address] Platelet mean volume (Bld) [Entitic vol] 9.6 fL Normal 6.2-12.0 [facility] Comment on above: Performed By: #### L 100.0100, L500.2500, L501.2450, L500.3400 #### [facility] [address] [place], [address] Platelets (Bld) [#/Vol] 196 10*3/uL Normal 150-450 [facility] Comment on above: Performed By: #### L 100.0100, L500.2500, L501.2450, L500.3400 #### [facility] [address] [place], [address] RBC (Bld) [#/Vol] 3.42 10*6/uL Low 4.2-5.4 [facility] Comment on above: Performed By: #### L 100.0100, L500.2500, L501.2450, L500.3400 #### [facility] [address] [place], [address] RDW SD 44.6 fl High 35.1-43.9 [facility] Comment on above: Performed By: #### L 100.0100, L500.2500, L501.2450, L500.3400 #### [facility] [address] [place], [address] WBC (Bld) [#/Vol] 5.7 10*3/uL Normal 4.4-11.0 [facility] Comment on above: Performed By: #### L 100.0100, L500.2500, L501.2450, L500.3400 #### [facility] [address] [facility] [place], [address] Carbon dioxide, total [Moles /volume] in Central venous bloodOrdered By: Viraj Dozier on 09-04-2024 CO2 [Moles/Vol] 29.1 mmol/L 21.0-32.0 [facility] Chloride assayOrdered By: Westley Dozier on 09-04-2024 Chloride [Moles/Vol] 98 mmol/L 98-[address] [facility] Emergency Department Summary on 09-04-2024 Emergency Department Summary [facility] Medical Records Department [address] [place] [address] Emergency Department Summary 09/04/24 MR#: [id number] Acct: [id number] Name: KANDI CORREIA Rep #: [id number] : 1945 79 From: Viraj Dozier DO [...] for dinner. She denies any urinary symptoms. [facility] Medical History Aortic dissection, abdominal Weakness Venous [...] orthopnea Gastrointesti (more content not included)... Normal [facility] Eosinophil percentageOrdered By: Viraj Dozier on 09-04-2024 Eosinophils/100 WBC (Bld) 1.7 % 0-5 [facility] Epithelial cells.squamous LM Ql (Urine sed)Ordered By: Viraj Dozier on 09-04-2024 Epithelial cells.squamous LM.HPF (Urine sed) [#/Area] 0 /[HPF] 5-10 [facility] Erythrocyte distribution wid th ratioOrdered By: Viraj Dozier on 09-04-2024 Erythrocyte distribution width (RBC) [Ratio] 13.0 % 11.6-14.6 [facility] Erythrocyte distribution wid th standard deviationOrdered By: Viraj Dozier on 09-04-2024 Erythrocyte distribution width (RBC) [Entitic vol] 44.6 fL High 35.1-43.9 [facility] Estimation of creatinine jesse aranceOrdered By: Viraj Dozier on 09-04-2024 Estimated Creatinine Clearance Calc 43.22 ml/min Low 50-250 [facility] GFR/1.73 sq M.predicted jonny g non-blacks MDRD (S/P/Bld) [Vol rate/Area]Ordered By: Viraj Dozier on 09-04-2024 Estimated GFR (MDRD) Non-Af Amer 53 Low >60 [facility] Comment on above: mL/min/1.73m2 CKD-EP I Creatinine Equation (2020) Glucose Ql (U)Ordered By: Westley Dozier on 09-04-2024 Urine Glucose (UA) Normal mg/dl Normal [facility] Hematocrit Auto (Bld) [Volum e fraction]Ordered By: Viraj Dozier on 09-04-2024 Hematocrit (Bld) [Volume fraction] 32.2 % Low 37-47 [facility] Hemoglobin measurementOrdere d By: Viraj Dozier on 09-04-2024 Hemoglobin (Bld) [Mass/Vol] 10.5 g/dL Low 12.0-15.0 [facility] Immature granulocytes/100 WB C Auto (Bld)Ordered By: Viraj Dozier on 09-04-2024 Immature granulocytes/100 WBC (Bld) 0.300 % 0.0-0.9 [facility] Comment on above: IG% - Immature Granu locytes (promyelocytes, myelocytes and metamyelocytes) > 1% indicates that a LEFT SHIFT is Present. Ketones Test strip Ql (U)Ord ered By: Viraj Tasia on 09-04-2024 Ketones Ql (U) Negative Negative [facility] Laboratory - Chemistry and C hemistry - challengeOrdered By: Viraj Dozier on 09-04-2024 AST [Catalytic activity/Vol] 19 U/L <32 [facility] Lipaseon 09-04-2024 Lipase [Catalytic activity/Vol] 17 U/L Normal 13-75 [facility] Comment on above: Result Comment: Plea se note: LIPASE revised reference range effective 22. New Lipase methodology. Expected to produce lower values than the previous assay method. NEW Reference Range: 13 - 75 U/L Performed By: #### L 505.5000, L3410.9998 #### [facility] [address] [place], [place], [address] Lipase measurementOrdered By : Viraj Dozier on 09-04-2024 Lipase [Catalytic activity/Vol] 17 U/L 13-75 [facility] Comment on above: Please note:LIPASE r evised reference range effective 22. New Lipase methodology. Expected to produce lower values than the previous assay method. NEW Reference Range: 13 - 75 U/L Liver Profileon 09-04-2024 Albumin [Mass/Vol] 4.1 g/dL Normal 3.4-4.8 [facility] Comment on above: Performed By: #### L 100.0100, L500.2500, L501.2450, L500.3400 #### [facility] [address] [place], [address] ALK PHOS 84 U/L Normal 35-104 [facility] Comment on above: Performed By: #### L 100.0100, L500.2500, L501.2450, L500.3400 #### [facility] [address] [place], [address] ALT [Catalytic activity/Vol] 8 U/L Normal <=34 [facility] Comment on above: Performed By: #### L 100.0100, L500.2500, L501.2450, L500.3400 #### [facility] [address] [place], [address] AST [Catalytic activity/Vol] 19 U/L Normal <=31 [facility] Comment on above: Performed By: #### L 100.0100, L500.2500, L501.2450, L500.3400 #### [facility] [address] [place], [address] Bilirubin [Mass/Vol] 0.44 mg/dL Normal 0.00-1.[address] [facility] Comment on above: Performed By: #### L 100.0100, L500.2500, L501.2450, L500.3400 #### [facility] [address] [place], [address] Bilirubin.direct [Mass/Vol] 0.18 mg/dL Normal 0.00-0.30 [facility] Comment on above: Performed By: #### L 100.0100, L500.2500, L501.2450, L500.3400 #### [facility] [address] [place], [address] Globulin (S) [Mass/Vol] 2.6 g/dL Normal 2.2-4.2 [facility] Comment on above: Performed By: #### L 100.0100, L500.2500, L501.2450, L500.3400 #### [facility] [address] [place], [address] T PROT 6.6 g/dL Normal 5.9-8.4 [facility] Comment on above: Performed By: #### L 100.0100, L500.2500, L501.2450, L500.3400 #### [facility] [place], [address] Lymphocytes Auto (Unsp spec) [#/Vol]Ordered By: Viraj Dozier on 09-04-2024 Lymphocytes (Bld) [#/Vol] 0.81 10*3/uL Low 0.83-4.51 [facility] Lymphocytes/100 WBC Auto (Un sp spec)Ordered By: Viraj Dozier on 09-04-2024 Lymphocytes/100 WBC (Bld) 14.2 % Low 19-41 [facility] MCV (mean corpuscular volume ) determinationOrdered By: Viraj Dozier on 09-04-2024 MCV (RBC) [Entitic vol] 94.2 fL 81-99 [facility] Mean corpuscular hemoglobin (MCH) determinationOrdered By: Viraj Dozier on 09-04-2024 MCH (RBC) [Entitic mass] 30.7 pg 27.0-32.0 [facility] Mean corpuscular hemoglobin concentration (MCHC) determinationOrdered By: Viraj Dozier on 09-04-2024 MCHC (RBC) [Mass/Vol] 32.6 g/dL 32-36 [facility] Mean platelet volume determi nationOrdered By: Viraj Dozier on 09-04-2024 Platelet mean volume (Bld) [Entitic vol] 9.6 fL 6.2-12.0 [facility] Microscopic analysis of urin e for red blood cells (RBC)Ordered By: Viraj Dozier on 09-04-2024 Urine RBC 0 SEEN /hpf 0-5 [facility] Monocyte percentageOrdered B y: Viraj Dozier on 09-04-2024 Monocytes/100 WBC (Bld) 14.5 % High 0-10 [facility] Mucus LM Ql (Urine sed)Order ed By: Viraj Dozier on 09-04-2024 Mucus Ql (Urine sed) 0 SEEN /hpf [facility] Neutrophil percentageOrdered By: Viraj Dozier on 09-04-2024 Neutrophils/100 WBC (Bld) 68.4 % 47-70 [facility] Nitrite Test strip Ql (U)Ord ered By: Viraj Dozier on 09-04-2024 Nitrite Ql (U) Positive High Negative [facility] Nucleated red blood cell per centageOrdered By: Viraj Dozier on 09-04-2024 Nucleated RBC/100 WBC (Bld) [Ratio] 0 % 0-5 [facility] Platelet countOrdered By: Westley Dozier on 09-04-2024 Platelets (Bld) [#/Vol] 196 10*3/uL 150-450 [facility] Potassium (Unsp spec) [Mass/ Vol]Ordered By: Viraj Dozier on 09-04-2024 Potassium [Moles/Vol] 3.6 mmol/L 3.3-5.1 [facility] Protein Test strip Ql (U)Ord ered By: Viraj Dozier on 09-04-2024 Protein Ql (U) Negative Negative [facility] RBC Auto (Bld) [#/Vol]Ordere d By: Viraj Dozier on 09-04-2024 RBC (Bld) [#/Vol] 3.42 10*6/uL Low 4.2-5.4 [facility] Serum creatinine measurement (mass/volume)Ordered By: Viraj Dozier on 09-04-2024 Creatinine [Mass/Vol] 1.07 mg/dL 0.70-1.20 [facility] Serum globulin measurementOr dered By: Viraj Dozier on 09-04-2024 Globulin (S) [Mass/Vol] 2.6 g/dL 2.2-4.2 [facility] Serum glucose measurement (m ass/volume)Ordered By: Viraj Dozier on 09-04-2024 Glucose [Mass/Vol] 114 mg/dL High 70-99 [facility] Serum or plasma alanine adler otransferase (ALT) measurementOrdered By: Viraj Dozier on 09-04-2024 ALT [Catalytic activity/Vol] 8 U/L <35 [facility] Serum or plasma albumin norman urement (mass/volume)Ordered By: Viraj Dozier on 09-04-2024 Albumin [Mass/Vol] 4.1 g/dL 3.4-4.8 [facility] Serum or plasma alkaline edna sphatase measurementOrdered By: Viraj Dozier on 09-04-2024 ALP [Catalytic activity/Vol] 84 U/L 35-104 [facility] Serum or plasma calcium norman urement (mass/volume)Ordered By: Viraj Dozier on 09-04-2024 Calcium [Mass/Vol] 9.2 mg/dL 7.6-11.0 [facility] Serum or plasma urea nitroge n measurement (mass/volume)Ordered By: Viraj Dozier on 09-04-2024 Urea nitrogen [Mass/Vol] 25 mg/dL High 4-19 [facility] Sodium levelOrdered By: Keon Dozier on 09-04-2024 Sodium [Moles/Vol] 140 mmol/L 133-145 [facility] Total proteinOrdered By: Carmelo Dozier on 09-04-2024 Protein [Mass/Vol] 6.6 g/dL 5.9-8.4 [facility] Urinalysis, Completeon 09-04 BACTERIA 2+ /hpf Normal None Seen [facility] Comment on above: Order Comment: UNK Performed By: #### L 505.5000, L3410.9998 #### [facility] [address] [place], [address] WBC 0-5 SEEN Normal 0-5 [facility] Comment on above: Order Comment: UNK Performed By: #### L 505.5000, L3410.9998 #### [facility] [address] [place], [address] EPI,SQUAMOUS 0 SEEN Normal 5-10 [facility] Comment on above: Order Comment: UNK Performed By: #### L 505.5000, L3410.9998 #### [facility] [address] [place], [address] Mucus Ql (Urine sed) 0 SEEN Normal [facility] Comment on above: Order Comment: UNK Performed By: #### L 505.5000, L3410.9998 #### [facility] [address] [place], [place], [address] RBC 0 SEEN Normal 0-5 [facility] Comment on above: Order Comment: UNK Performed By: #### L 505.5000, L3410.9998 #### [facility] [address] [place], [place], [address] Urine blood detectionOrdered By: Viraj Dozier on 09-04-2024 Urine Occult Blood 10 /ul High Negative [facility] Urine clarityOrdered By: Carmelo Dozier on 09-04-2024 Clarity (U) Clear Clear [facility] Urine color determinationOrd ered By: Viraj Dozier on 09-04-2024 Color (U) Yellow Yellow [facility] Urine leukocyte esterase det ection by dipstickOrdered By: Viraj Dozier on 09-04-2024 Leukocyte esterase Test strip Ql (U) 25 /ul High Negative [facility] Urine pHOrdered By: Viraj orellana on 09-04-2024 pH (U) 7.0 [pH] 5.0 - 8.0 [facility] Urine sediment bacteria coun t by microscopy (number/high power field)Ordered By: Viraj Dozier on 09-04-2024 Bacteria LM.HPF (Urine sed) [#/Area] 2 /[HPF] None Seen [facility] Urine specific gravity measu rementOrdered By: Viraj Dozier on 09-04-2024 Specific gravity (U) [Rel density] 1.010 1.002-1.030 [facility] Urobilinogen Ql (U)Ordered B y: Viraj Dozier on 09-04-2024 Urine Urobilinogen Normal mg/dl Normal [facility] White blood cell (WBC) count Ordered By: Viraj Dozier on 09-04-2024 WBC (Bld) [#/Vol] 5.7 10*3/uL 4.4-11.0 [facility] White blood cell countOrdere d By: Viraj Dozier on 09-04-2024 Urine WBC 0-5 SEEN /hpf 0-5 [facility] CNPNon 2024 CNPN Telephone ([facility]) -------- KANDI CORREIA ([id number]) 1945 F Date Time Provider Department 08/31/24 JALYN SMITH During your visit today, we recorded the following information about you: Susana Fisher RN 2024 3:58 PM Signed Patient's daughter calls and states that patient received the Shingrix and RSV vaccination at [facility]. Pharmacy is recommending patient get a pneumonia [...] Fully Assessed Reason for Visit: Patient Question [2597] Prescriptions as of 2024 - oxybutynin XL [...] 1 tablet by mouth once daily. - nmrrbmhclf-aodpjqvc-rqpt oterol (BREZTRI AEROSPHERE) 160-9-4.8 mcg/actuation HFA aerosol [...] this patient by: PATIENT Maria Alejandra Nolan (Deputy Sheriff Custody) Problem List As Of Date 2024 Noted [...] Status:Closed by AURELIA ROSE on 08/31/24 Normal [facility] L3410.9998on 08-23-2024 [facility] Misc. Normal [facility] Comment on above: Order Comment: [id number] TRAMADOL Result Comment: TEST RESULTS LIMITS Tramadol, Urine Tramadol Positive Dfdakk=151 Tramadol Conf, [place], [place] 2038 ng/mL Gzrvbp=356 Tramadol detected; this finding can be consistent with use of medications that include Ultram, Topalgic, Tradol, Zydol, or generic formulations. Drugs listed are mill representative of common sources of the compound detected and are not intended to include all possible sources. Please Note: Drug test results should be interpreted in the context of clinical information. Patient metabolic variables, specific drug chemistry, and specimen characteristics can affect test outcome. Technical consultation is available if a test result is inconsistent with an expected outcome. Email: [email or web address] TESTING PERFORMED AT [facility]. ORIGINAL REPORT ON FILE IN LAB CONTAINS ADDITIONAL TEST SITE INFORMATION. Performed By: #### L 3410.9998 #### [facility] [address] [place], [place] [address], [address] L3410.9998on 08-12-2024 [facility]. [facility] Comment on above: Order Comment: ADD O N PLEASE IF ABLE-SWRIGHT [id number] BUPENORPHINE Result Comment: TEST RESULTS LIMITS Buprenorphine, Urine Negative ng/mL Cutoff=10 TESTING PERFORMED AT [facility]. ORIGINAL REPORT ON FILE IN LAB CONTAINS ADDITIONAL TEST SITE INFORMATION. Performed By: #### L 3410.9998 #### [facility] [address] [place], [address] L3410.9998on 08-04-2024 [facility]. COMMENT Normal . [facility] Comment on above: Order Comment: [id number] MED[facility] URINE Result Comment: Test Ordered: [id number] 6+Oxycodone-Bund Amphetamines, Urine Negative ng/mL UI Reference Range: Qszkdx=0989 Amphetamine test includes Amphetamine and Methamphetamine. Barbiturate Negative ng/mL UI Reference Range: Fuvvso=124 Benzodiazepines Negative ng/mL UI Reference Range: Ceqmhm=980 Cannabinoids Negative ng/mL UI Reference Range: Cutoff=20 Cocaine (Metabolite) Negative ng/mL UI Reference Range: Bzvndg=093 Opiates Negative ng/mL UI Reference Range: Gjafwi=862 Opiate test includes Codeine, Morphine, Hydromorphone, Hydrocodone. Oxycodone/Oxymorphone, Urine Negative ng/mL UI Reference Range: Ldcukp=762 Test includes Oxycodone and Oxymorphone Effective September 05, 2024, this test will be discontinued. Please contact your [facility] mill representative for suggested replacement test options. Performed at: [facility] [address] [place], [place] [id number] Sand Filler: Tripp Bronson PhD, Phone: [phone] Performed at: [address] [id number] Sand Filler: Nadir Cartwright PhD, Phone: [phone] Performed By: #### L 505.5000, L3410.9998 #### [facility] [address] [place] [address], [address] Amphetamines Screen method > 1000 ng/mL Ql (U)Ordered By: Chin Paul on 08-02-2024 Amphetamines Ql (U) Negative <1000 ng/mL [facility] Urine Barbiturates Screen Negative < 200 ng/mL [facility] Methadone, urineOrdered By: Chin Paul on 08-02-2024 Urine Methadone Screen Negative < 300 ng/mL [facility] No Panel InformationOrdered By: Chin Paul on 08-02-2024 Urine Buprenorphine Qualitative Negative < 200 ng/mL [facility] Urine Oxycodone Screen Negative < 100 ng/mL [facility] Quantitative urine opiates m easurementOrdered By: Chin Paul on 08-02-2024 Opiates Ql (U) Negative < 300 ng/mL [facility] Urine Drug Screen (VISTA)on 08-02-2024 AMPHETAMINES Negative Normal <1000 ng/mL [facility] Comment on above: Order Comment: UNK Performed By: #### L 505.5000, L3410.9998 #### [facility] [address] [facility] [address] BARBITIURATES Negative Normal < 200 ng/mL [facility] Comment on above: Order Comment: UNK Performed By: #### L 505.5000, L3410.9998 #### [facility] [address] [place], [address] BENZODIAZIPINE Negative Normal < 200 ng/mL [facility] Comment on above: Order Comment: UNK Performed By: #### L 505.5000, L3410.9998 #### [facility] [address] [facility] [address] BUP Ur Drug Scr Negative Normal < 200 ng/mL [facility] Comment on above: Order Comment: UNK Performed By: #### L 505.5000, L3410.9998 #### [facility] [address] [place], [address] COCAINE Negative Normal < 300 ng/mL [facility] Comment on above: Order Comment: UNK Performed By: #### L 505.5000, L3410.9998 #### [facility] [address] [facility] [address] Fentanyl Negative Normal [facility] Comment on above: Order Comment: UNK Performed By: #### L 505.5000, L3410.9998 #### [facility] [address] [place], [address] METHADONE Negative Normal < 300 ng/mL [facility] Comment on above: Order Comment: UNK Performed By: #### L 505.5000, L3410.9998 #### [facility] [address] [place], [address] OPIATES Negative Normal < 300 ng/mL [facility] Comment on above: Order Comment: UNK Performed By: #### L 505.5000, L3410.9998 #### [facility] [address] [place], [address] OXYCODONE Negative Normal < 100 ng/mL [facility] Comment on above: Order Comment: UNK Performed By: #### L 505.5000, L3410.9998 #### [facility] [address] [place], [address] PCP Negative Normal < 25 ng/mL [facility] Comment on above: Order Comment: UNK Performed By: #### L 505.5000, L3410.9998 #### [facility] [address] [place], [address] THC Negative Normal < 50 ng/mL [facility] Comment on above: Order Comment: UNK Performed By: #### L 505.5000, L3410.9998 #### [facility] [address] [place], [address] Urine benzodiazepine levelOr dered By: Chin Paul on 08-02-2024 Benzodiazepines Ql (U) Negative < 200 ng/mL [facility] Urine cocaine levelOrdered B y: Chin Basali on 08-02-2024 Cocaine Ql (U) Negative < 300 ng/mL [facility] Urine fdgkq-4-gzkdaaihibgbiq abinol (THC) measurementOrdered By: Chin Garrisoni on 08-02-2024 Cannabinoids Screen Ql (U) Negative < 50 ng/mL [facility] Urine phencyclidine (PCP) de tectionOrdered By: Chin Basali on 08-02-2024 Phencyclidine Ql (U) Negative < 25 ng/mL [facility] fentaNYL Screen Ql (U)Ordere d By: Chin Garrisoni on 08-02-2024 Urine Fentanyl Screen Negative [facility] Vazquez 04-14-2024 [facility] KANDI CORREIA ([id number]) 1945 F Date Time Provider Department 04/14/24 JALYN SMITH [facility] During your visit today, we recorded the [...] tablets by mouth daily at bedtime. - rwviktcayr-uvqpyibb-yipz oterol (BREZTRI) 160-9-4.8 mcg/actuation HFA aerosol inhaler [...] this patient by: PATIENT Maria Alejandra Nolan (Deputy Sheriff Custody) Problem List As Of Date 04/14/2024 Noted [...] Status:Closed by JUDY BORREGO on 04/14/24 Normal [facility] CBC W Auto Differential pane l (Bld)on 04-13-2024 Basophils (Bld) [#/Vol] 0.06 10*3/uL Normal <0.11 [facility] Comment on above: Order Comment: Speci men Type: BLOOD SPECIMENOrdering Facility: [facility] Address: [address] [place] [address] [place] [address] Performed By: #### 5 7021-8 ####[facility] [id number] [place] [address] [place] Basophils/100 WBC (Bld) 1.3 % Normal [facility] Comment on above: Order Comment: Speci men Type: BLOOD SPECIMENOrdering Facility: [facility] Address: [address] [place] [address] Performed By: #### 5 7021-8 ####[facility] [id number] [place] [address] [place] Differential cell count method Nom (Bld) Auto Normal [facility] Comment on above: Order Comment: Speci men Type: BLOOD SPECIMENOrdering Facility: [facility] Address: [address] [place] [address] Performed By: #### 5 7021-8 ####[facility] [id number] [place] [address] [place] Eosinophils (Bld) [#/Vol] 0.13 10*3/uL Normal <0.46 [facility] Comment on above: Order Comment: Speci men Type: BLOOD SPECIMENOrdering Facility: [facility] Address: [address] [place] [address] Performed By: #### 5 7021-8 ####[facility] [id number] [place] [address] [place] Eosinophils/100 WBC (Bld) 2.7 % Normal [facility] Comment on above: Order Comment: Speci men Type: BLOOD SPECIMENOrdering Facility: [facility] Address: [address] [place] [address] Performed By: #### 5 7021-8 ####[facility] [id number] [place] [address] [place] Erythrocyte distribution width (RBC) [Ratio] 13.2 % Normal 11.5-15.0 [facility] Comment on above: Order Comment: Speci men Type: BLOOD SPECIMENOrdering Facility: [facility] Address: [address] [place] [address] Performed By: #### 5 7021-8 ####[facility] [id number] [place] [address] [place] Hematocrit (Bld) [Volume fraction] 36.1 % Normal 36.0-46.0 [facility] Comment on above: Order Comment: Speci men Type: BLOOD SPECIMENOrdering Facility: [facility] Address: [address] [place] [address] Performed By: #### 5 7021-8 ####[facility] [id number] [place] [address] [place] Hemoglobin (Bld) [Mass/Vol] 11.0 g/dL Low 11.5-15.5 [facility] Comment on above: Order Comment: Speci men Type: BLOOD SPECIMENOrdering Facility: [facility] Address: [address] [place] [address] Performed By: #### 5 7021-8 ####[facility] [id number] [place] [address] [place] Immature granulocytes (Bld) [#/Vol] 10*3/uL Normal <0.10 [facility] Comment on above: Order Comment: Speci men Type: BLOOD SPECIMENOrdering Facility: [facility] Address: [address] [place] [address] Performed By: #### 5 7021-8 ####[facility] [id number] [place] [address] [place] Immature granulocytes/100 WBC (Bld) 0.0 % Normal [facility] Comment on above: Order Comment: Speci men Type: BLOOD SPECIMENOrdering Facility: [facility] Address: [address] [place] [address] Performed By: #### 5 7021-8 ####[facility] [id number] [place] [address] [place] Lymphocytes (Bld) [#/Vol] 0.78 10*3/uL Low 1.00-4.00 [facility] Comment on above: Order Comment: Speci men Type: BLOOD SPECIMENOrdering Facility: [facility] Address: [address] [place] [address] Performed By: #### 5 7021-8 ####[facility] [id number] [place] [address] [place] Lymphocytes/100 WBC (Bld) 16.4 % Normal [facility] Comment on above: Order Comment: Speci men Type: BLOOD SPECIMENOrdering Facility: [facility] Address: [address] [place] [address] Performed By: #### 5 7021-8 ####[facility] [id number] [place] [address] [place] MCH (RBC) [Entitic mass] 29.6 pg Normal 26.0-34.0 [facility] Comment on above: Order Comment: Speci men Type: BLOOD SPECIMENOrdering Facility: [facility] Address: [address] [place] [address] Performed By: #### 5 7021-8 ####[facility] [id number] [place] [address] [place] MCHC (RBC) [Mass/Vol] 30.5 g/dL Normal 30.5-36.0 [facility] Comment on above: Order Comment: Speci men Type: BLOOD SPECIMENOrdering Facility: [facility] Address: [address] [place] [address] Performed By: #### 5 7021-8 ####[facility] [id number] [place] [address] [place] MCV (RBC) [Entitic vol] 97.3 fL Normal 80.0-100.0 [facility] Comment on above: Order Comment: Speci men Type: BLOOD SPECIMENOrdering Facility: [facility] Address: [address] [place] [address] Performed By: #### 5 7021-8 ####[facility] [id number] [place] [address] [place] Monocytes (Bld) [#/Vol] 0.53 10*3/uL Normal <0.87 [facility] Comment on above: Order Comment: Speci men Type: BLOOD SPECIMENOrdering Facility: [facility] Address: [address] [place] [address] Performed By: #### 5 7021-8 ####[facility] [id number] [place] [address] [place] Monocytes/100 WBC (Bld) 11.2 % Normal [facility] Comment on above: Order Comment: Speci men Type: BLOOD SPECIMENOrdering Facility: [facility] Address: [address] [place] [address] Performed By: #### 5 7021-8 ####[facility] [id number] [place] [address] [place] Neutrophils (Bld) [#/Vol] 3.25 10*3/uL Normal 1.45-7.50 [facility] Comment on above: Order Comment: Speci men Type: BLOOD SPECIMENOrdering Facility: [facility] Address: [address] [place] [address] Performed By: #### 5 7021-8 ####[facility] [id number] [place] [address] [place] Neutrophils/100 WBC (Bld) 68.4 % Normal [facility] Comment on above: Order Comment: Speci men Type: BLOOD SPECIMENOrdering Facility: [facility] Address: [address] [place] [address] Performed By: #### 5 7021-8 ####[facility] [id number] [place] [address] [place] Nucleated RBC (Bld) [#/Vol] 10*3/uL Normal <0.01 [facility] Comment on above: Order Comment: Speci men Type: BLOOD SPECIMENOrdering Facility: [facility] Address: [address] [place] [address] Performed By: #### 5 7021-8 ####[facility] [id number] [place] [address] [place] Nucleated RBC/100 WBC (Bld) [Ratio] 0.0 /100 WBC Normal [facility] Comment on above: Order Comment: Speci men Type: BLOOD SPECIMENOrdering Facility: [facility] Address: [address] [place] [address] Performed By: #### 5 7021-8 ####[facility] [id number] [place] [address] [place] Platelet mean volume (Bld) [Entitic vol] 9.7 fL Normal 9.0-12.7 [facility] Comment on above: Order Comment: Speci men Type: BLOOD SPECIMENOrdering Facility: [facility] Address: [address] [place] [address] Performed By: #### 5 7021-8 ####[facility] [id number] [place] [address] [place] Platelets (Bld) [#/Vol] 227 10*3/uL Normal 150-400 [facility] Comment on above: Order Comment: Speci men Type: BLOOD SPECIMENOrdering Facility: [facility] Address: [address] [place] [address] Performed By: #### 5 7021-8 ####[facility] [id number] [place] [address] [place] RBC (Bld) [#/Vol] 3.71 10*6/uL Low 3.90-5.20 [facility] Comment on above: Order Comment: Speci men Type: BLOOD SPECIMENOrdering Facility: [facility] Address: [address] [place] [address] Performed By: #### 5 7021-8 ####[facility] [id number] [place] [address] [place] WBC (Bld) [#/Vol] 4.75 10*3/uL Normal 3.70-11.00 [facility] Comment on above: Order Comment: Speci men Type: BLOOD SPECIMENOrdering Facility: [facility] Address: [address] [place] [address] Performed By: #### 5 7021-8 ####[facility] [id number] [place] [address] [place] Magnesium SerPl-mCncon 04-13 Magnesium [Mass/Vol] 1.8 mg/dL Normal 1.7-2.3 [facility] Comment on above: Order Comment: Speci men Type: BLOOD SPECIMENOrdering Facility: [facility] Address: [address] [place] [address] Performed By: #### 1 9123-9 ####[facility] [id number] [place] [address] [place] CNPSofia [facility] -------- KANDI CORREIA ([id number]) 1945 F Date Time Provider Department 03/29/24 [facility] During your visit today, we recorded the following information about you: Kasey Hull MA 03/29/2024 3:27 PM Signed Kandi from [facility] and needs clarification for oxygen. Does she [...] by: Staci Zamorano LPN - Fully Assessed Primary Visit Diagnosis:Acute and chronic respiratory failure with hypoxia (HCC) [J96.21] Order(s):OXYGEN FOR HOME USE [[id number]] Order #: [id number] Prescriptions as of 03/30/2024 - Magnesium Oxide [...] tablets by mouth daily at bedtime. - mzaoaitsgs-vfuboyih-nadh oterol (BREZTRI) 160-9-4.8 mcg/actuation HFA aerosol inhaler [...] this patient by: PATIENT Maria Alejandra Nolan (Deputy Sheriff Custody) Problem List As Of Date 03/29/2024 Noted [...] Status:Closed by ZACKERY MAYFIELD on 03/29/24 Normal 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 Mild diffuse atherosclerotic disease as detailed without hemodynamically significant stenosis. No acute process in the chest, abdomen or pelvis. Health Promotion Officer: PSCSanjay Transcribe Date/Time: Oct 14 2023 4:46P Dictated by : GINNY FAULKENR DO This examination was interpreted and the report reviewed and electronically signed by: ANN RUBIO MD on Oct 15 2023 1:07AM [facility] * * *Final Report* * * DATE OF EXAM: Oct 14 2023 2:22PM [facility] 0131 - CTA C/A/P (NONGATED) W IVCON [...] or fluid collection. Bones/Soft Tissues: Degenerative changes. [facility] Provider, [facility] - 10/15/2023 * * *Final Report* * * DATE OF EXAM: Oct 14 2023 2:22PM [facility] 0131 - CTA C/A/P (NONGATED) W IVCON [...] Degenerative changes. IMPRESSION (more content not included)... [facility] CTA Chest vessels and Abdomi nal vessels and Pelvis vessels W contrast IVOrdered By: Ccf Provider on 10-15-2023 [facility] CTA Chest vessels and Abdomi nal vessels and Pelvis vessels W contrast Umer 10-14-2023 Radiology Study observation (narrative) [facility] OXIMETRY WITH AMBULATIONon 0 09-30-2023 Karen Vargas [...] September 30, 2023 TIME: 12:17 PM Comment: [facility] Vazquez 09-24-2023 ANNY Telephone (AGVASACC) -------- TAYLORKANDI ([id number]) 1945 F Date Time Provider Department 09/24/23 YANIV TODD During your visit today, we recorded the following information about you: Lavonne 09/24/2023 11:03 AM Signed I have called and spoke to the patient several times to explain and talk over what we can do and what has happened with the testing and possibly getting her to see Dr. Todd out in [place] coming to [place]. She wants to go to to see [place] and for the testing if it cannot be done at [place] [facility]. I gave the patient the phone # to the [place] location but she stated it would not [...] this patient by: PATIENT Maria Alejandra Nolan (Deputy Sheriff Custody) Problem List As Of Date 09/24/2023 Noted [...] Status:Closed by ANNE MARIE BANERJEE on 09/24/23 [facility] CNOVon 09-21-2023 CNOV Office Visit (AGVASA CC) -------- KANDI CORREIA ([id number]) 1945 F Date Time Provider Department 09/21/23 2:30 PM YANIV TODD During your visit today, we recorded the following information about you: Pulse Blood pressure Weight Height 93/minute 128/80 85.7 kg 1.626 m Yaniv Todd MD 09/21/2023 5:58 PM Signed [facility] [place] DEPARTMENT OF VASCULAR SURGERY OUTPATIENT VISIT DATE September 21, 2023 OUTPATIENT VISIT TYPE CONSULTATION PRIMARY CARE PHYSICIAN: Jalyn Smith MD REFERRING PROVIDER: Jalyn Smith [address] [facility] [address] Consult requested for an opinion regarding the [...] date: 01/29/2012 (more content not included)... 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 Mild infrahilar infiltrate on the right. Follow-up recommended Health Promotion Officer: SWATI Transcribe Date/Time: Sep 09 2023 10:18A Dictated by : CLYDE RUIZ MD This examination was interpreted and the report reviewed and electronically signed by: CYLDE RUIZ MD on Sep 09 2023 10:20AM [facility] DIVISION OF RADIOLOGY * * *Final Report* [...] soft tissues: Unremarkable. DIVISION OF RADIOLOGY Provider, [facility] - 09/09/2023 * * *Final Report* * [...] infrahilar infiltrate on the right. Follow-up recommended Health Promotion Officer: SWATI Transcribe Date/Time: Sep 09 2023 10:18A Dictated by : CLYDE RUIZ MD This examination was interpreted and the report reviewed and electronically signed by: CLYDE RUIZ MD on Sep 09 2023 10:20AM [facility] XR Chest PA and LateralOrder ed By: Ccf Provider on 09-09-2023 [facility] ALBUMIN/CREAT RATIO RND URon 09-08-2023 Albumin DL <= 20 mg/L (U) [Mass/Vol] [facility] Albumin/Creatinine (U) [Mass ratio] <30 mg/g [facility] Creatinine (U) [Mass/Vol] 100.7 mg/dL 20.0 - 300.0 mg/dL [facility] CBC W Auto Differential pane l (Bld)on 09-08-2023 Basophils (Bld) [#/Vol] 0.06 10*3/uL <0.11 k/uL [facility] Basophils/100 WBC (Bld) 0.8 % [facility] Differential cell count method Nom (Bld) Auto [facility] Eosinophils (Bld) [#/Vol] 0.09 10*3/uL <0.46 k/uL [facility] Eosinophils/100 WBC (Bld) 1.2 % [facility] Erythrocyte distribution width (RBC) [Ratio] 13.9 % 11.5 - 15.0 % [facility] Hematocrit (Bld) [Volume fraction] 33.6 % Low 36.0 - 46.0 % [facility] Hemoglobin (Bld) [Mass/Vol] 10.3 g/dL Low 11.5 - 15.5 g/dL [facility] Immature granulocytes (Bld) [#/Vol] 0.09 10*3/uL <0.10 k/uL [facility] Immature granulocytes/100 WBC (Bld) 1.2 % [facility] Lymphocytes (Bld) [#/Vol] 0.82 10*3/uL Low 1.00 - 4.00 k/uL [facility] Lymphocytes/100 WBC (Bld) 10.9 % [facility] MCH (RBC) [Entitic mass] 29.3 pg 26.0 - 34.0 pg [facility] MCHC (RBC) [Mass/Vol] 30.7 g/dL 30.5 - 36.0 g/dL [facility] MCV (RBC) [Entitic vol] 95.7 fL 80.0 - 100.0 fL [facility] Monocytes (Bld) [#/Vol] 0.81 10*3/uL <0.87 k/uL [facility] Monocytes/100 WBC (Bld) 10.7 % [facility] Neutrophils (Bld) [#/Vol] 5.67 10*3/uL 1.45 - 7.50 k/uL [facility] Neutrophils/100 WBC (Bld) 75.2 % [facility] Nucleated RBC (Bld) [#/Vol] <0.01 k/uL [facility] Nucleated RBC/100 WBC (Bld) [Ratio] 0.0 /100 WBC [facility] Platelet mean volume (Bld) [Entitic vol] 8.9 fL Low 9.0 - 12.7 fL [facility] Platelets (Bld) [#/Vol] 378 10*3/uL 150 - 400 k/uL [facility] RBC (Bld) [#/Vol] 3.51 10*6/uL Low 3.90 - 5.2 0 m/uL [facility] WBC (Bld) [#/Vol] 7.54 10*3/uL 3.70 - 11. 00 k/uL [facility] Comprehensive metabolic 2000 panelon 09-08-2023 Albumin [Mass/Vol] 3.6 g/dL Low 3.9 - 4.9 g/dL [facility] ALP [Catalytic activity/Vol] 82 U/L 34 - 123 U/L [facility] ALT [Catalytic activity/Vol] 9 U/L 7 - 38 U/L [facility] Anion gap [Moles/Vol] 12 mmol/L 9 - 18 mmol/L [facility] AST [Catalytic activity/Vol] 18 U/L 13 - 35 U/L [facility] Bilirubin [Mass/Vol] 0.3 mg/dL 0.2 - 1 .3 mg/dL [facility] Calcium [Mass/Vol] 9.2 mg/dL 8.5 - 10. 2 mg/dL [facility] Chloride [Moles/Vol] 94 mmol/L Low 97 - 10 5 mmol/L [facility] CO2 [Moles/Vol] 31 mmol/L High 22 - 30 mmol/L [facility] Creatinine [Mass/Vol] 1.03 mg/dL High 0.58 - 0.96 mg/dL [facility] Estimated Glomerular Filtration Rate 56 mL/min/1.73m Low >=60 mL/min/1.73m [facility] Glucose [Mass/Vol] 88 mg/dL 74 - 99 mg/dL [facility] Potassium [Moles/Vol] 3.9 mmol/L 3.7 - 5.1 mmol/L [facility] Protein [Mass/Vol] 6.4 g/dL 6.3 - 8.0 g/dL [facility] Sodium [Moles/Vol] 137 mmol/L 136 - 144 mmol/L [facility] Urea nitrogen [Mass/Vol] 21 mg/dL 7 - 21 mg/dL [facility] HbA1c (Bld)on 09-08-2023 Average glucose Estimated from glycated hemoglobin (Bld) [Mass/Vol] 117 mg/dL [facility] HbA1c (Bld) [Mass fraction] 5.7 % High 4.3 - 5.6 % [facility] LIPID PANEL, NONFASTINGon Cholesterol [Mass/Vol] 158 mg/dL <200 mg/dL [facility] HDL Cholesterol, Nonfasting 40 mg/dL >39 mg/dL [facility] LDL Cholesterol, Nonfasting 90 mg/dL <100 mg/dL [facility] LDL/HDL Ratio, Nonfasting 2.25 mg/dL <2.54 mg/dL [facility] Non HDL Cholesterol, Nonfasting 118 mg/dL <130 mg/dL [facility] Total Chol/HDL Ratio, Nonfasting 3.95 mg/dL <5.10 mg/dL [facility] Triglycerides, Nonfasting 138 mg/dL <150 mg/dL [facility] VLDL Cholesterol, Nonfasting 28 mg/dL <30 mg/dL [facility] XR Chest PA and Lateralon Radiology Study observation (narrative) [facility] Absolute lymphocyte countOrd ered By: Juni Ho on 08-28-2023 Lymphocytes Auto (Unsp spec) [#/Vol] 0.23 10*3/uL 0.83-4.51 [facility] Automated lymphocyte count a s percentage of total leukocytesOrdered By: Juni Ho on 08-28-2023 Lymphocytes/100 WBC Auto (Unsp spec) 1.8 % 19-41 [facility] Basophil percentageOrdered B y: Juni Ho on 08-28-2023 Basophils/100 WBC (Bld) 0.6 % 0-1 [facility] Bilirubin [Mass/Vol] 0.70 mg/dL 0.20-1.[address] [facility] Comment on above: For patients on eltr ombopag therapy, use of Dimension [place] TBIL is not recommended. Chloride [Moles/Vol] 88 mmol/L 98-[address] [facility] Eosinophils/100 WBC (Bld) 0.1 % 0-5 [facility] Glucose [Mass/Vol] 173 mg/dL 74-106 [facility] Comment on above: Fasting Glucose resu lt greater than or equal to 126 mg/dL suggests DIABETES MELLITUS per A.D.A. criteria. Hemoglobin (Bld) [Mass/Vol] 10.7 g/dL 12.0-15.0 [facility] Monocytes/100 WBC (Bld) 12.3 % 0-10 [facility] Neutrophils (Bld) [#/Vol] 10.7 10*3/uL 2.0-7.7 [facility] Neutrophils/100 WBC (Bld) 84.7 % 47-70 [facility] Potassium [Moles/Vol] 3.1 mmol/L 3.5-5.1 [facility] Protein [Mass/Vol] 7.2 g/dL 6.4-8.2 [facility] Sodium [Moles/Vol] 131 mmol/L 136-145 [facility] WBC (Bld) [#/Vol] 12.7 10*3/uL 4.4-11.0 [facility] Bilirubin Test strip Ql (U)O rdered By: Juni Ho on 08-28-2023 Bilirubin Ql (U) Negative Negative [facility] Blood manual differential co mment interpretation (narrative result)Ordered By: Juni Ho on 08-28-2023 Manual differential comment Lamin (Bld) [Interp] SCANNED [facility] Comment on above: LYMPHOPENIA NOTEDMON OCYTOSIS NOTED Determination of erythrocyte mean corpuscular volume (MCV)Ordered By: Juni Ho on 08-28-2023 MCV (RBC) [Entitic vol] 92.9 fL 81-99 [facility] Erythrocyte distribution wid th ratioOrdered By: Juni Ho on 08-28-2023 Erythrocyte distribution width (RBC) [Ratio] 13.3 % 11.6-14.6 [facility] Erythrocyte distribution wid th standard deviationOrdered By: Juni Ho on 08-28-2023 Erythrocyte distribution width (RBC) [Entitic vol] 45.3 fL 35.1-43.9 [facility] Hematocrit Auto (Bld) [Volum e fraction]Ordered By: Juni Ho on 08-28-2023 Hematocrit (Bld) [Volume fraction] 33.9 % 37-47 [facility] Immature granulocytes/100 WB C Auto (Bld)Ordered By: Juni Ho on 08-28-2023 Immature granulocytes/100 WBC (Bld) 0.500 % 0.0-0.9 [facility] Comment on above: IG% - Immature Granu locytes (promyelocytes, myelocytes and metamyelocytes) > 1% indicates that a LEFT SHIFT is Present. Ketones Test strip Ql (U)Ord ered By: Juni Ho on 08-28-2023 Ketones Ql (U) 5 mg/dl Negative [facility] Laboratory - Chemistry and C hemistry - challengeOrdered By: Juni Ho on 08-28-2023 Albumin/Globulin [Mass ratio] 0.6 {ratio} 0.9-2.4 [facility] ALP [Catalytic activity/Vol] 88 U/L 45-117 [facility] ALT [Catalytic activity/Vol] 13 U/L 13-56 [facility] CO2 [Moles/Vol] 37.0 mmol/L 21.0-32.0 [facility] Globulin (S) [Mass/Vol] 4.4 g/dL 2.2-4.2 [facility] Lipase [Catalytic activity/Vol] 14 U/L 13-75 [facility] Comment on above: Please note:LIPASE r evised reference range effective 22. New Lipase methodology. Expected to produce lower values than the previous assay method. NEW Reference Range: 13 - 75 U/L Urea nitrogen/Creatinine [Mass ratio] 23.3 mg/mg 10-20 [facility] Laboratory - Hematology and Cell countsOrdered By: Juni Ho on 08-28-2023 MCH (RBC) [Entitic mass] 29.3 pg 27.0-32.0 [facility] MCHC (RBC) [Mass/Vol] 31.6 g/dL 32-36 [facility] Nucleated RBC/100 WBC (Bld) [Ratio] 0 % 0-5 [facility] Platelet mean volume (Bld) [Entitic vol] 9.3 fL 6.2-12.0 [facility] Platelets (Bld) [#/Vol] 263 10*3/uL 150-450 [facility] Nitrite Test strip Ql (U)Ord ered By: Juni Ho on 08-28-2023 Nitrite Ql (U) Negative Negative [facility] No Panel InformationOrdered By: Juni Ho on 08-28-2023 Estimated GFR (MDRD) Amer 74 mL/min >60 [facility] Comment on above: GFR Calc Estimated GFR (MDRD) Non-Af Amer 61 mL/min >60 [facility] Comment on above: Non- GFR Calc Protein Test strip Ql (U)Ord ered By: Juni Ho on 08-28-2023 Protein Ql (U) 100 mg/dl Negative [facility] RBC Auto (Bld) [#/Vol]Ordere d By: Juni Ho on 08-28-2023 RBC (Bld) [#/Vol] 3.65 10*6/uL 4.2-5.4 [facility] Review by pathologistOrdered By: Juni Ho on 08-28-2023 Pathologist review Lamin (Unsp spec) [Interp] May foll [facility] Serum or plasma calcium norman urement (mass/volume)Ordered By: Juni Ho on 08-28-2023 Calcium [Mass/Vol] 9.5 mg/dL 8.5-10.1 [facility] Serum or plasma creatinine m easurement (mass/volume)Ordered By: Juni Ho on 08-28-2023 Creatinine [Mass/Vol] 0.94 mg/dL 0.55-1.02 [facility] Comment on above: The validity of the calculated GFR & GFRAA in patients over 70 years has not been determined. Clinical correlation is essential. Serum or plasma urea nitroge n measurement (mass/volume)Ordered By: Juni Ho on 08-28-2023 Urea nitrogen [Mass/Vol] 22 mg/dL 7-18 [facility] Thin prep Papanicolaou smear with manual screeningOrdered By: Juni Ho on 08-28-2023 Thin prep Papanicolaou smear with manual screening 2.8 g/dL 3.2-5.0 [facility] Thin prep Papanicolaou smear with manual screening 13 U/L 15-37 [facility] Thin prep Papanicolaou smear with manual screening 6 5-15 [facility] Urine blood detectionOrdered By: Juni Ho on 08-28-2023 RBC Ql (U) 50 /ul Negative [facility] Urine clarityOrdered By: Lonnie oH on 08-28-2023 Clarity (U) Clear Clear [facility] Urine color determinationOrd ered By: Juni Ho on 08-28-2023 Color (U) Yellow Yellow [facility] Urine glucose detectionOrder ed By: Juni Ho on 08-28-2023 Glucose Ql (U) Normal mg/dl Normal [facility] Urine leukocyte esterase det ection by dipstickOrdered By: Juni Ho on 08-28-2023 Leukocyte esterase Test strip Ql (U) 25 /ul Negative [facility] Urine pHOrdered By: Juni garg on 08-28-2023 pH (U) 7.0 [pH] 5.0 - 8.0 [facility] Urine specific gravity measu rementOrdered By: Juni Ho on 08-28-2023 Specific gravity (U) [Rel density] 1.010 1.002-1.030 [facility] Urine urobilinogen measureme ntOrdered By: Juni Ho on 08-28-2023 Urobilinogen Ql (U) Normal mg/dl Normal [facility] Laboratory - Drug toxicology Ordered By: Chin Paul on 02-18-2023 Amphetamines Ql (U) Negative <1000 ng/mL [facility] Benzodiazepines Ql (U) Negative < 200 ng/mL [facility] Cannabinoids Screen Ql (U) Negative < 50 ng/mL [facility] Cocaine Ql (U) Negative < 300 ng/mL [facility] Opiates Ql (U) Positive < 300 ng/mL [facility] No Panel InformationOrdered By: Chin Paul on 02-18-2023 MDMA (Ecstasy) Screen Negative < 500 ng/mL [facility] Urine Barbiturates Screen Negative < 200 ng/mL [facility] Urine Drug Screen Comment [facility] Comment on above: CONFIRMATORY TESTING FOR ALL [...] TESTING MUST BE ORDERED SEPARATELY. USE TESTMNEMONIC: [facility] Urine Methadone Screen Negative < 300 ng/mL [facility] Urine phencyclidine (PCP) de tectionOrdered By: Chin Paul on 02-18-2023 Phencyclidine Ql (U) Negative < 25 ng/mL [facility] CBC W Auto Differential pane l (Bld)on 01-13-2023 Basophils (Bld) [#/Vol] 0.04 10*3/uL <0.11 k/uL [facility] Basophils/100 WBC (Bld) 0.6 % [facility] Differential cell count method Nom (Bld) Auto [facility] Eosinophils (Bld) [#/Vol] 0.20 10*3/uL <0.46 k/uL [facility] Eosinophils/100 WBC (Bld) 3.1 % [facility] Erythrocyte distribution width (RBC) [Ratio] 13.2 % 11.5 - 15.0 % [facility] Hematocrit (Bld) [Volume fraction] 34.6 % Low 36.0 - 46.0 % [facility] Hemoglobin (Bld) [Mass/Vol] 10.7 g/dL Low 11.5 - 15.5 g/dL [facility] Immature granulocytes (Bld) [#/Vol] <0.10 k/uL [facility] Immature granulocytes/100 WBC (Bld) 0.3 % [facility] Lymphocytes (Bld) [#/Vol] 0.94 10*3/uL Low 1.00 - 4.00 k/uL [facility] Lymphocytes/100 WBC (Bld) 14.6 % [facility] MCH (RBC) [Entitic mass] 31.2 pg 26.0 - 34.0 pg [facility] MCHC (RBC) [Mass/Vol] 30.9 g/dL 30.5 - 36.0 g/dL [facility] MCV (RBC) [Entitic vol] 100.9 fL High 80.0 - 100.0 fL [facility] Monocytes (Bld) [#/Vol] 0.81 10*3/uL <0.87 k/uL [facility] Monocytes/100 WBC (Bld) 12.6 % [facility] Neutrophils (Bld) [#/Vol] 4.43 10*3/uL 1.45 - 7.50 k/uL [facility] Neutrophils/100 WBC (Bld) 68.8 % [facility] Nucleated RBC (Bld) [#/Vol] <0.01 k/uL [facility] Nucleated RBC/100 WBC (Bld) [Ratio] 0.0 /100 WBC [facility] Platelet mean volume (Bld) [Entitic vol] 10.1 fL 9.0 - 12.7 fL [facility] Platelets (Bld) [#/Vol] 230 10*3/uL 150 - 400 k/uL [facility] RBC (Bld) [#/Vol] 3.43 10*6/uL Low 3.90 - 5.2 0 m/uL [facility] WBC (Bld) [#/Vol] 6.44 10*3/uL 3.70 - 11. 00 k/uL [facility] Glucose Glucometer (BldC) [M ass/Vol]Ordered By: Gustavo Justice on 01-02-2023 Glucose [Mass/Vol] 115 mg/dL 74-106 [facility] Comment on above: MANAGEMENT OF PATIEN T CARE PER NURSING PROTOCOL Absolute lymphocyte countOrd ered By: Gustavo Justice on 12-30-2022 Lymphocytes Auto (Unsp spec) [#/Vol] 1.25 10*3/uL 0.83-4.51 [facility] Basophil percentageOrdered B y: Gustavo Justice on 12-30-2022 Basophils/100 WBC (Bld) 1.0 % 0-1 [facility] Chloride [Moles/Vol] 94 mmol/L 98-[address] [facility] Eosinophils/100 WBC (Bld) 3.1 % 0-5 [facility] Glucose [Mass/Vol] 101 mg/dL 74-106 [facility] Comment on above: Fasting Glucose resu lt from 100 to 125 mg/dL suggests IMPAIRED HOMEOSTASIS per A.D.A. criteria. Neutrophils (Bld) [#/Vol] 2.9 10*3/uL 2.0-7.7 [facility] Neutrophils/100 WBC (Bld) 55.5 % 47-70 [facility] Potassium [Moles/Vol] 3.5 mmol/L 3.5-5.1 [facility] Sodium [Moles/Vol] 136 mmol/L 136-145 [facility] WBC (Bld) [#/Vol] 5.1 10*3/uL 4.4-11.0 [facility] Blood erythrocytes count (nu mber/volume)Ordered By: Gustavo Justice on 12-30-2022 RBC (Bld) [#/Vol] 3.48 10*6/uL 4.2-5.4 [facility] Blood hemoglobin measurement (mass/volume)Ordered By: Gustavo Justice on 12-30-2022 Hemoglobin (Bld) [Mass/Vol] 10.6 g/dL 12.0-15.0 [facility] Blood lymphocytes/100 leukoc ytesOrdered By: Gustavo Justice on 12-30-2022 Lymphocytes/100 WBC (Bld) 24.4 % 19-41 [facility] Blood monocytes/100 leukocyt esOrdered By: Gustavo Justice on 12-30-2022 Monocytes/100 WBC (Bld) 15.2 % 0-10 [facility] Blood platelet mean volumeOr dered By: Gustavo Justice on 12-30-2022 Platelet mean volume (Bld) [Entitic vol] 8.9 fL 6.2-12.0 [facility] Determination of erythrocyte mean corpuscular volume (MCV)Ordered By: Gustavo Justice 12-30-2022 MCV (RBC) [Entitic vol] 100.6 fL 81-99 [facility] Hematocrit Auto (Bld) [Volum e fraction]Ordered By: Gustavo Justice on 12-30-2022 Hematocrit (Bld) [Volume fraction] 35.0 % 37-47 [facility] Laboratory - Chemistry and C hemistry - challengeOrdered By: Gustavo Justice on 12-30-2022 CO2 [Moles/Vol] 40.0 mmol/L 21.0-32.0 [facility] Urea nitrogen/Creatinine [Mass ratio] 26.4 mg/mg 10-20 [facility] Laboratory - Hematology and Cell countsOrdered By: Gustavo Justice 12-30-2022 Erythrocyte distribution width (RBC) [Entitic vol] 49.3 fL 35.1-43.9 [facility] Erythrocyte distribution width (RBC) [Ratio] 13.4 % 11.6-14.6 [facility] Immature granulocytes/100 WBC (Bld) 0.800 % 0.0-0.9 [facility] Comment on above: IG% - Immature Granu locytes (promyelocytes, myelocytes and metamyelocytes) > 1% indicates that a LEFT SHIFT is Present. MCH (RBC) [Entitic mass] 30.5 pg 27.0-32.0 [facility] Nucleated RBC/100 WBC (Bld) [Ratio] 0 % 0-5 [facility] MCHC Auto (RBC) [Mass/Vol]Or dered By: Gustavo Justice on 12-30-2022 MCHC (RBC) [Mass/Vol] 30.3 g/dL 32-36 [facility] No Panel InformationOrdered By: Gustavo Justice on 12-30-2022 Estimated Creatinine Clearance Calc 42.25 ml/min [facility] Estimated GFR (MDRD) Amer 78 mL/min >60 [facility] Comment on above: GFR Calc Estimated GFR (MDRD) Non-Af Amer 64 mL/min >60 [facility] Comment on above: Non- GFR Calc Platelets bldOrdered By: Gustavo Justice on 12-30-2022 Platelets (Bld) [#/Vol] 256 10*3/uL 150-450 [facility] Serum or plasma calcium norman urement (mass/volume)Ordered By: Gustavo Justice on 12-30-2022 Calcium [Mass/Vol] 8.9 mg/dL 8.5-10.1 [facility] Serum or plasma creatinine m easurement (mass/volume)Ordered By: Gustavo Justice 12-30-2022 Creatinine [Mass/Vol] 0.91 mg/dL 0.55-1.02 [facility] Comment on above: The validity of the calculated GFR & GFRAA in patients over 70 years has not been determined. Clinical correlation is essential. Serum or plasma urea nitroge n measurement (mass/volume)Ordered By: Gustavo Justice on 12-30-2022 Urea nitrogen [Mass/Vol] 24 mg/dL 7-18 [facility] Thin prep Papanicolaou smear with manual screeningOrdered By: Gustavo Justice on 12-30-2022 Thin prep Papanicolaou smear with manual screening 2 5-15 [facility] Glucose Glucometer (BldC) [M ass/Vol]Ordered By: Chris Deshpande on 12-15-2022 Glucose [Mass/Vol] 148 mg/dL 74-106 [facility] Comment on above: MANAGEMENT OF PATIEN T CARE PER NURSING PROTOCOL Absolute lymphocyte countOrd ered By: Angle Latham on 12-13-2022 Lymphocytes Auto (Unsp spec) [#/Vol] 0.87 10*3/uL 0.83-4.51 [facility] Basophil percentageOrdered B y: Angle Latham on 12-13-2022 Basophils/100 WBC (Bld) 0.7 % 0-1 [facility] Eosinophils/100 WBC (Bld) 2.1 % 0-5 [facility] Neutrophils (Bld) [#/Vol] 6.2 10*3/uL 2.0-7.7 [facility] Neutrophils/100 WBC (Bld) 74.0 % 47-70 [facility] WBC (Bld) [#/Vol] 8.4 10*3/uL 4.4-11.0 [facility] Blood erythrocytes count (nu mber/volume)Ordered By: Angle Latham on 12-13-2022 RBC (Bld) [#/Vol] 3.54 10*6/uL 4.2-5.4 [facility] Blood hemoglobin measurement (mass/volume)Ordered By: Angle Latham on 12-13-2022 Hemoglobin (Bld) [Mass/Vol] 10.8 g/dL 12.0-15.0 [facility] Blood lymphocytes/100 leukoc ytesOrdered By: Angle Latham on 12-13-2022 Lymphocytes/100 WBC (Bld) 10.3 % 19-41 [facility] Blood monocytes/100 leukocyt esOrdered By: Angle Latham on 12-13-2022 Monocytes/100 WBC (Bld) 9.5 % 0-10 [facility] Blood platelet adequacy dete ction by light microscopyOrdered By: Angle Latham on 07-08-2023 Platelets LM Ql (Bld) ADEQUATE ADEQ [facility] Blood platelet mean volumeOr dered By: Angle Latham on 12-13-2022 Platelet mean volume (Bld) [Entitic vol] 9.2 fL 6.2-12.0 [facility] Determination of erythrocyte mean corpuscular volume (MCV)Ordered By: Angle Latham on 12-13-2022 MCV (RBC) [Entitic vol] 100.3 fL 81-99 [facility] Hematocrit Auto (Bld) [Volum e fraction]Ordered By: Angle Latham on 12-13-2022 Hematocrit (Bld) [Volume fraction] 35.5 % 37-47 [facility] Laboratory - Hematology and Cell countsOrdered By: Angle Latham on 12-13-2022 Erythrocyte distribution width (RBC) [Entitic vol] 48.5 fL 35.1-43.9 [facility] Erythrocyte distribution width (RBC) [Ratio] 13.1 % 11.6-14.6 [facility] Immature granulocytes/100 WBC (Bld) 3.400 % 0.0-0.9 [facility] Comment on above: IG% - Immature Granu locytes (promyelocytes, myelocytes and metamyelocytes) > 1% indicates that a LEFT SHIFT is Present. MCH (RBC) [Entitic mass] 30.5 pg 27.0-32.0 [facility] Nucleated RBC/100 WBC (Bld) [Ratio] 0 % 0-5 [facility] MCHC Auto (RBC) [Mass/Vol]Or dered By: Angle Latham on 12-13-2022 MCHC (RBC) [Mass/Vol] 30.4 g/dL 32-36 [facility] Macrocytes detectionOrdered By: Angle Latham on 12-13-2022 Macrocytes Ql (Bld) 1+ [facility] Platelets bldOrdered By: Toma Latham on 12-13-2022 Platelets (Bld) [#/Vol] 304 10*3/uL 150-450 [facility] Basophil percentageOrdered B y: Angle Latham on 12-12-2022 Chloride [Moles/Vol] 98 mmol/L 98-[address] [facility] Glucose [Mass/Vol] 139 mg/dL 74-106 [facility] Comment on above: Fasting Glucose resu lt greater than or equal to 126 mg/dL suggests DIABETES MELLITUS per A.D.A. criteria. Potassium [Moles/Vol] 3.8 mmol/L 3.5-5.1 [facility] Sodium [Moles/Vol] 140 mmol/L 136-145 [facility] Laboratory - Chemistry and C hemistry - challengeOrdered By: Angle Latham on 12-12-2022 CO2 [Moles/Vol] 38.0 mmol/L 21.0-32.0 [facility] Urea nitrogen/Creatinine [Mass ratio] 23.0 mg/mg 10-20 [facility] No Panel InformationOrdered By: Angle Latham on 12-12-2022 Estimated Creatinine Clearance Calc 38.44 ml/min [facility] Estimated GFR (MDRD) Amer 99 mL/min >60 [facility] Comment on above: GFR Calc Estimated GFR (MDRD) Non-Af Amer 82 mL/min >60 [facility] Comment on above: Non- GFR Calc Serum or plasma calcium norman urement (mass/volume)Ordered By: Angle Latahm on 12-12-2022 Calcium [Mass/Vol] 8.7 mg/dL 8.5-10.1 [facility] Serum or plasma creatinine m easurement (mass/volume)Ordered By: Angle Latham on 12-12-2022 Creatinine [Mass/Vol] 0.74 mg/dL 0.55-1.02 [facility] Comment on above: The validity of the calculated GFR & GFRAA in patients over 70 years has not been determined. Clinical correlation is essential. Serum or plasma urea nitroge n measurement (mass/volume)Ordered By: Angle Latham on 12-12-2022 Urea nitrogen [Mass/Vol] 17 mg/dL 7-18 [facility] Thin prep Papanicolaou smear with manual screeningOrdered By: Angle Latham on 12-12-2022 Thin prep Papanicolaou smear with manual screening 4 5-15 [facility] Hemoglobin in reticulocytes (mass per reticulocyte)Ordered By: Burke Patterson on 12-11-2022 Hemoglobin (Reticulocytes) [Entitic mass] 31.9 pg 30-35 [facility] Iron measurement (mass/mass) Ordered By: Burke Patterson on 12-11-2022 Iron (Unsp spec) [Mass/Mass] 39 ug/dL 50-170 [facility] Laboratory - Chemistry and C hemistry - challengeOrdered By: Burke Patterson on 12-11-2022 Cobalamin (Vitamin B12) [Mass/Vol] 416 pg/mL 211-911 [facility] Lower GI hemoglobin IA Ql (S tl)Ordered By: Burke Patterson on 12-11-2022 Stool Occult Blood (SHENA) Positive [facility] No Panel InformationOrdered By: Burke Patterson on 12-11-2022 Immature Reticulocyte Fraction 16.40 % 3.00-15.90 [facility] Reticulocyte Count 1.41 % 0.5-1.5 [facility] Total Iron Binding Capacity 221 ug/dL 250-450 [facility] Vitamin D 25-Hydroxy 19.4 ng/mL [facility] Comment on above: Vitamin D 25(OH) Sta tus Range Deficiency <20 ng/mL (50nmol/L) Insufficiency 20 - 30 ng/mL (50 - 75 nmol/L) Sufficiency 30 - 100 ng/mL (75 - 250 nmol/L) Toxicity >100 ng/mL (>250 nmol/L) Serum or plasma ferritin shari surement (mass/volume)Ordered By: Burke Patterson on 12-11-2022 Ferritin [Mass/Vol] 746 ng/mL 8-252 [facility] Serum or plasma folate measu rement (mass/volume)Ordered By: Burke Patterson on 12-11-2022 Folate [Mass/Vol] 6.60 ng/mL 3.1-55.4 [facility] Serum or plasma iron saturat ion measurement (mass fraction)Ordered By: Burke Patterson on 12-11-2022 Iron saturation [Mass fraction] 17.6 % 15.0-55.0 [facility] Absolute lymphocyte countOrd ered By: Hector Fields on 12-10-2022 Lymphocytes Auto (Unsp spec) [#/Vol] 0.97 10*3/uL 0.83-4.51 [facility] Basophil percentageOrdered B y: Hector Fields on 12-10-2022 Basophil percentage 0-5 SEEN /hpf 0-5 [facility] Basophils/100 WBC (Bld) 0.5 % 0-1 [facility] Chloride [Moles/Vol] 90 mmol/L 98-[address] [facility] Eosinophils/100 WBC (Bld) 0.6 % 0-5 [facility] Glucose [Mass/Vol] 107 mg/dL 74-106 [facility] Comment on above: Fasting Glucose resu lt from 100 to 125 mg/dL suggests IMPAIRED HOMEOSTASIS per A.D.A. criteria. Lactate [Moles/Vol] 1.2 mmol/L 0.4-2.0 [facility] Neutrophils (Bld) [#/Vol] 8.2 10*3/uL 2.0-7.7 [facility] Neutrophils/100 WBC (Bld) 74.0 % 47-70 [facility] Potassium [Moles/Vol] 3.5 mmol/L 3.5-5.1 [facility] Sodium [Moles/Vol] 135 mmol/L 136-145 [facility] WBC (Bld) [#/Vol] 11.1 10*3/uL 4.4-11.0 [facility] Bilirubin Test strip Ql (U)O rdered By: Hector Fields on 12-10-2022 Bilirubin Ql (U) Negative Negative [facility] Blood erythrocytes count (nu mber/volume)Ordered By: Hector Fields on 12-10-2022 RBC (Bld) [#/Vol] 3.60 10*6/uL 4.2-5.4 [facility] Blood hemoglobin measurement (mass/volume)Ordered By: Hector Fields on 12-10-2022 Hemoglobin (Bld) [Mass/Vol] 11.0 g/dL 12.0-15.0 [facility] Blood lymphocytes/100 leukoc ytesOrdered By: Hector Fields on 12-10-2022 Lymphocytes/100 WBC (Bld) 8.7 % 19-41 [facility] Blood monocytes/100 leukocyt esOrdered By: Hector Fields on 12-10-2022 Monocytes/100 WBC (Bld) 12.0 % 0-10 [facility] Blood platelet mean volumeOr dered By: Hector Fields on 12-10-2022 Platelet mean volume (Bld) [Entitic vol] 9.4 fL 6.2-12.0 [facility] Culture, urineOrdered By: Juan F Fields on 12-10-2022 Bacteria identified Cx Nom (U) Klebsiella aerogenes [facility] Determination of erythrocyte mean corpuscular volume (MCV)Ordered By: Hector Fields on 12-10-2022 MCV (RBC) [Entitic vol] 99.7 fL 81-99 [facility] HCO3 (BldA) [Moles/Vol]Order ed By: Hector Fields on 12-10-2022 HCO3 (Bld) [Moles/Vol] 39 mmol/L 22-26 [facility] Hematocrit Auto (Bld) [Volum e fraction]Ordered By: Hector Fields on 12-10-2022 Hematocrit (Bld) [Volume fraction] 35.9 % 37-47 [facility] Ketones Test strip Ql (U)Ord ered By: Hector Fields on 12-10-2022 Ketones Ql (U) 15 mg/dl Negative [facility] Laboratory - Chemistry and C hemistry - challengeOrdered By: Hector Fields on 12-10-2022 CO2 [Moles/Vol] 40 mmol/L 23-33 [facility] CO2 [Moles/Vol] 39.0 mmol/L 21.0-32.0 [facility] Natriuretic peptide B (Bld) [Mass/Vol] 113.3 pg/mL 0-100 [facility] Urea nitrogen/Creatinine [Mass ratio] 19.4 mg/mg 10-20 [facility] Laboratory - Hematology and Cell countsOrdered By: Hector Fields on 12-10-2022 Erythrocyte distribution width (RBC) [Entitic vol] 46.9 fL 35.1-43.9 [facility] Erythrocyte distribution width (RBC) [Ratio] 12.7 % 11.6-14.6 [facility] Immature granulocytes/100 WBC (Bld) 4.200 % 0.0-0.9 [facility] Comment on above: IG% - Immature Granu locytes (promyelocytes, myelocytes and metamyelocytes) > 1% indicates that a LEFT SHIFT is Present. MCH (RBC) [Entitic mass] 30.6 pg 27.0-32.0 [facility] Nucleated RBC/100 WBC (Bld) [Ratio] 0 % 0-5 [facility] MCHC Auto (RBC) [Mass/Vol]Or dered By: Hector Fields on 12-10-2022 MCHC (RBC) [Mass/Vol] 30.6 g/dL 32-36 [facility] Mucus LM Ql (Urine sed)Order ed By: Hector Fields on 12-10-2022 Mucus Ql (Urine sed) 0 SEEN /hpf [facility] Nitrite Test strip Ql (U)Ord ered By: Hector Fields on 12-10-2022 Nitrite Ql (U) Negative Negative [facility] No Panel InformationOrdered By: Hector Fields on 12-10-2022 Bed Mix Venous Bld PCO2 at Pat Temp 55.3 mmHg 41-51 [facility] Blood Gas Liter Flow 3.0 /min [facility] Blood Gas Specimen Type [facility] Oxygen Delivery Device Cannula [facility] Venous Blood Base Excess 15 mmol/L -1.0-3.5 [facility] Estimated Creatinine Clearance Calc 24.80 ml/min [facility] Estimated GFR (MDRD) Amer 42 mL/min >60 [facility] Comment on above: GFR Calc Estimated GFR (MDRD) Non-Af Amer 35 mL/min >60 [facility] Comment on above: Non- GFR Calc Troponin I High Sensitivity 11 pg/mL 3.0-54.0 [facility] Comment on above: Please Note: New Jennifer t Units and Gender Specific Reference Ranges. For more information see Policy Stat Procedure [place] High Sensitivity Troponin (TNIH) and attachments. PO2 venousOrdered By: Hector Fields on 12-10-2022 Oxygen (BldV) [Partial pressure] 37 mm[Hg] 25-40 [facility] Platelets bldOrdered By: Martin Fields on 12-10-2022 Platelets (Bld) [#/Vol] 306 10*3/uL 150-450 [facility] Protein Test strip Ql (U)Ord ered By: Hector Fields on 12-10-2022 Protein Ql (U) 30 mg/dl Negative [facility] Serum or plasma calcium norman urement (mass/volume)Ordered By: Hector Fields on 12-10-2022 Calcium [Mass/Vol] 9.6 mg/dL 8.5-10.1 [facility] Serum or plasma creatinine m easurement (mass/volume)Ordered By: Hector Fields on 12-10-2022 Creatinine [Mass/Vol] 1.55 mg/dL 0.55-1.02 [facility] Comment on above: The validity of the calculated GFR & GFRAA in patients over 70 years has not been determined. Clinical correlation is essential. Serum or plasma urea nitroge n measurement (mass/volume)Ordered By: Hector Fields on 12-10-2022 Urea nitrogen [Mass/Vol] 30 mg/dL 7-18 [facility] Squamous epithelial cells de tection in urine sediment by light microscopyOrdered By: Hcetor Fields on 12-10-2022 Epithelial cells.squamous LM Ql (Urine sed) 0-5 SEEN /hpf 5-10 [facility] Thin prep Papanicolaou smear with manual screeningOrdered By: Hector Fields on 12-10-2022 Thin prep Papanicolaou smear with manual screening 6 5-15 [facility] Urine blood detectionOrdered By: Hector Fields on 12-10-2022 RBC Ql (U) 50 /ul Negative [facility] RBC Ql (U) 0-5 SEEN /hpf 0-5 [facility] Urine clarityOrdered By: Martin Fields on 12-10-2022 Clarity (U) Clear Clear [facility] Urine color determinationOrd ered By: Hector Fields on 12-10-2022 Color (U) Yellow Yellow [facility] Urine glucose detectionOrder ed By: Hector Fields on 12-10-2022 Glucose Ql (U) Normal mg/dl Normal [facility] Urine leukocyte esterase det ection by dipstickOrdered By: Hector Fields on 12-10-2022 Leukocyte esterase Test strip Ql (U) 100 /ul Negative [facility] Urine pHOrdered By: Hector chávez on 12-10-2022 pH (U) 7.0 [pH] 5.0 - 8.0 [facility] Urine sediment bacteria coun t by microscopy (number/high power field)Ordered By: Hector Fields on 12-10-2022 Bacteria LM.HPF (Urine sed) [#/Area] 0 /[HPF] None Seen [facility] Urine specific gravity measu rementOrdered By: Hector Fields on 12-10-2022 Specific gravity (U) [Rel density] 1.010 1.002-1.030 [facility] Urobilinogen Auto test strip Ql (U)Ordered By: Hector Fields on 12-10-2022 Urobilinogen Ql (U) Normal mg/dl Normal [facility] Vital signsOrdered By: Chely Fields on 12-10-2022 Oxygen saturation in Blood 71 % 50-70 [facility] pH measurementOrdered By: Juan F Fields on 12-10-2022 pH (Unsp spec) 7.45 [pH] 7.32-7.42 [facility] Anaerobic cultureOrdered By: Dr. Magallon on 07-29-2022 Bacteria identified Anaer cx Nom (Unsp spec) No anaerobic bacteria isolated. [facility] Bacteria identified Cx Nom ( Wound)Ordered By: Dr. Magallon on 07-28-2022 Wound Culture Staphylococcus aureus [facility] Gram stain for investigation of transfusion reactionOrdered By: Dr. Magallon on 07-26-2022 Microscopic observation Gram stain Nom (Unsp spec) [facility] No Panel Informationon 04-18 [facility] Absolute lymphocyte counton 09-26-2021 Lymphocytes Auto (Unsp spec) [#/Vol] 1.18 10*3/uL 0.83-4.51 [facility] Work Phone: Bacteria identified Anaer cx Nom (Unsp spec)on 09-26-2021 Anaerobic microbial culture No anaerobic bacteria isolated. [facility] Work Phone: Bacteria identified Cx Nom ( Wound)on 09-26-2021 Wound Culture Staphylococcus epidermidis [facility] Work Phone: Basophil percentageon 2021 Basophils/100 WBC (Bld) 0.8 % 0-1 [facility] Work Phone: Bilirubin [Mass/Vol] 0.40 mg/dL 0.20-1.[address] [facility] Work Phone: Comment on above: For patients on eltr ombopag therapy, use of Dimension [place] TBIL is not recommended. Chloride [Moles/Vol] 96 mmol/L 98-[address] [facility] Work Phone: Eosinophils/100 WBC (Bld) 2.6 % 0-5 [facility] Work Phone: Glucose [Mass/Vol] 116 mg/dL 74-106 [facility] Work Phone: Comment on above: Fasting Glucose resu lt from 100 to 125 mg/dL suggests IMPAIRED HOMEOSTASIS per A.D.A. criteria. Neutrophils (Bld) [#/Vol] 5.4 10*3/uL 2.0-7.7 [facility] Work Phone: Neutrophils/100 WBC (Bld) 69.3 % 47-70 [facility] Work Phone: [phone] Potassium [Moles/Vol] 3.9 mmol/L 3.5-5.1 [facility] Work Phone: Protein [Mass/Vol] 7.6 g/dL 6.4-8.2 [facility] Work Phone: Sodium [Moles/Vol] 138 mmol/L 136-145 [facility] Work Phone: [phone] WBC (Bld) [#/Vol] 7.7 10*3/uL 4.4-11.0 [facility] Work Phone: Blood erythrocytes count (nu mber/volume)on 09-26-2021 RBC (Bld) [#/Vol] 4.00 10*6/uL 4.2-5.4 [facility] Work Phone: Blood hemoglobin measurement (mass/volume)on 09-26-2021 Hemoglobin (Bld) [Mass/Vol] 12.3 g/dL 12.0-15.0 [facility] Work Phone: Blood lymphocytes/100 leukoc yteson 09-26-2021 Lymphocytes/100 WBC (Bld) 15.3 % 19-41 [facility] Work Phone: Blood monocytes/100 leukocyt eson 09-26-2021 Monocytes/100 WBC (Bld) 11.6 % 0-10 [facility] Work Phone: Blood platelet mean volumeon 09-26-2021 Platelet mean volume (Bld) [Entitic vol] 9.0 fL 6.2-12.0 [facility] Work Phone: Determination of erythrocyte mean corpuscular volume (MCV)on 09-26-2021 MCV (RBC) [Entitic vol] 96.5 fL 81-99 [facility] Work Phone: Erythrocyte sedimentation ra puja 09-26-2021 ESR (Bld) [Velocity] 29 mm/h 0-[address] [facility] Work Phone: Gram stain for investigation of transfusion reactionon 09-26-2021 Microscopic observation Gram stain Nom (Unsp spec) [facility] Work Phone: Hematocrit Auto (Bld) [Volum e fraction]on 09-26-2021 Hematocrit (Bld) [Volume fraction] 38.6 % 37-47 [facility] Work Phone: Laboratory - Chemistry and C hemistry - challengeon 09-26-2021 ALP [Catalytic activity/Vol] 88 U/L 45-117 [facility] Work Phone: ALT [Catalytic activity/Vol] 22 U/L 13-56 [facility] Work Phone: CO2 [Moles/Vol] 37.0 mmol/L 21.0-32.0 [facility] Work Phone: Globulin (S) [Mass/Vol] 3.8 g/dL 2.2-4.2 [facility] Work Phone: Urea nitrogen/Creatinine [Mass ratio] 34.5 mg/mg 10-20 [facility] Work Phone: Laboratory - Hematology and Cell countson 09-26-2021 Erythrocyte distribution width (RBC) [Entitic vol] 46.0 fL 35.1-43.9 [facility] Work Phone: Erythrocyte distribution width (RBC) [Ratio] 12.9 % 11.6-14.6 [facility] Work Phone: Immature granulocytes/100 WBC (Bld) 0.400 % 0.0-0.9 [facility] Work Phone: Comment on above: IG% - Immature Granu locytes (promyelocytes, myelocytes and metamyelocytes) > 1% indicates that a LEFT SHIFT is Present. MCH (RBC) [Entitic mass] 30.8 pg 27.0-32.0 [facility] Work Phone: Nucleated RBC/100 WBC (Bld) [Ratio] 0 % 0-5 [facility] Work Phone: MCHC Auto (RBC) [Mass/Vol]on 09-26-2021 MCHC (RBC) [Mass/Vol] 31.9 g/dL 32-36 [facility] Work Phone: No Panel Informationon 09-26 Estimated Creatinine Clearance Calc 42.62 ml/min [facility] Work Phone: Estimated GFR (MDRD) Amer 92 mL/min >60 [facility] Work Phone: Comment on above: GFR Calc Estimated GFR (MDRD) Non-Af Amer 76 mL/min >60 [facility] Work Phone: Comment on above: Non- GFR Calc Platelets bldon 09-26-2021 Platelets (Bld) [#/Vol] 262 10*3/uL 150-450 [facility] Work Phone: Serum or plasma albumin norman urement (mass/volume)on 09-26-2021 Albumin [Mass/Vol] 3.8 g/dL 3.2-5.0 [facility] Work Phone: Serum or plasma albumin/glob ulin mass ratioon 09-26-2021 Albumin/Globulin [Mass ratio] 1.0 {ratio} 0.9-2.4 [facility] Work Phone: Serum or plasma calcium norman urement (mass/volume)on 09-26-2021 Calcium [Mass/Vol] 9.1 mg/dL 8.5-10.1 [facility] Work Phone: Serum or plasma creatinine m easurement (mass/volume)on 09-26-2021 Creatinine [Mass/Vol] 0.78 mg/dL 0.55-1.02 [facility] Work Phone: Comment on above: The validity of the calculated GFR & GFRAA in patients over 70 years has not been determined. Clinical correlation is essential. Serum or plasma transthyreti n measurement (mass/volume)on 09-26-2021 Prealbumin [Mass/Vol] 20.2 mg/dL 20.0-40.0 [facility] Work Phone: Serum or plasma urea nitroge n measurement (mass/volume)on 09-26-2021 Urea nitrogen [Mass/Vol] 27 mg/dL 7-18 [facility] Work Phone: Thin prep Papanicolaou smear with manual screeningon 09-26-2021 Thin prep Papanicolaou smear with manual screening 21 U/L 15-37 [facility] Work Phone: Thin prep Papanicolaou smear with manual screening 5 5-15 [facility] Work Phone: Whole blood hemoglobin A1c/t otal hemoglobin ratio (mass fraction)on 09-26-2021 HbA1c (Bld) [Mass fraction] 6.0 % 3.8-5.6 [facility] Work Phone: Comment on above: Normal < 5.7 % Predi abetic 5.7 - 6.4 % Diabetic >or= 6.5 % Please note range changes. Absolute lymphocyte counton 08-09-2021 Lymphocytes Auto (Unsp spec) [#/Vol] 0.96 10*3/uL 0.83-4.51 [facility] Work Phone: Basophil percentageon 2021 Basophils/100 WBC (Bld) 0.6 % 0-1 [facility] Work Phone: Chloride [Moles/Vol] 94 mmol/L 98-[address] [facility] Work Phone: Eosinophils/100 WBC (Bld) 3.9 % 0-5 [facility] Work Phone: [phone] Glucose [Mass/Vol] 131 mg/dL 74-106 [facility] Work Phone: Comment on above: Fasting Glucose resu lt greater than or equal to 126 mg/dL suggests DIABETES MELLITUS per A.D.A. criteria. Neutrophils (Bld) [#/Vol] 3.3 10*3/uL 2.0-7.7 [facility] Work Phone: [phone] Neutrophils/100 WBC (Bld) 63.5 % 47-70 [facility] Work Phone: Potassium [Moles/Vol] 4.0 mmol/L 3.5-5.1 [facility] Work Phone: Sodium [Moles/Vol] 136 mmol/L 136-145 [facility] Work Phone: WBC (Bld) [#/Vol] 5.1 10*3/uL 4.4-11.0 [facility] Work Phone: Blood erythrocytes count (nu mber/volume)on 08-09-2021 RBC (Bld) [#/Vol] 3.77 10*6/uL 4.2-5.4 [facility] Work Phone: Blood hemoglobin measurement (mass/volume)on 08-09-2021 Hemoglobin (Bld) [Mass/Vol] 11.8 g/dL 12.0-15.0 [facility] Work Phone: Blood lymphocytes/100 leukoc yteson 08-09-2021 Lymphocytes/100 WBC (Bld) 18.7 % 19-41 [facility] Work Phone: Blood monocytes/100 leukocyt eson 08-09-2021 Monocytes/100 WBC (Bld) 12.7 % 0-10 [facility] Work Phone: Blood platelet mean volumeon 08-09-2021 Platelet mean volume (Bld) [Entitic vol] 8.8 fL 6.2-12.0 [facility] Work Phone: Determination of erythrocyte mean corpuscular volume (MCV)on 08-09-2021 MCV (RBC) [Entitic vol] 97.9 fL 81-99 [facility] Work Phone: Glucose Glucometer (BldC) [M ass/Vol]on 08-09-2021 Glucose [Mass/Vol] 120 mg/dL 74-106 [facility] Work Phone: Comment on above: MANAGEMENT OF PATIEN T CARE PER NURSING PROTOCOL Hematocrit Auto (Bld) [Volum e fraction]on 08-09-2021 Hematocrit (Bld) [Volume fraction] 36.9 % 37-47 [facility] Work Phone: Laboratory - Chemistry and C hemistry - challengeon 08-09-2021 CO2 [Moles/Vol] 40.0 mmol/L 21.0-32.0 [facility] Work Phone: Urea nitrogen/Creatinine [Mass ratio] 38.3 mg/mg 10-20 [facility] Work Phone: Laboratory - Hematology and Cell countson 08-09-2021 Erythrocyte distribution width (RBC) [Entitic vol] 45.7 fL 35.1-43.9 [facility] Work Phone: Erythrocyte distribution width (RBC) [Ratio] 12.8 % 11.6-14.6 [facility] Work Phone: Immature granulocytes/100 WBC (Bld) 0.600 % 0.0-0.9 [facility] Work Phone: Comment on above: IG% - Immature Granu locytes (promyelocytes, myelocytes and metamyelocytes) > 1% indicates that a LEFT SHIFT is Present. MCH (RBC) [Entitic mass] 31.3 pg 27.0-32.0 [facility] Work Phone: Nucleated RBC/100 WBC (Bld) [Ratio] 0 % 0-5 [facility] Work Phone: MCHC Auto (RBC) [Mass/Vol]on 08-09-2021 MCHC (RBC) [Mass/Vol] 32.0 g/dL 32-36 [facility] Work Phone: No Panel Informationon 08-09 Estimated Creatinine Clearance Calc 43.27 ml/min [facility] Work Phone: Estimated GFR (MDRD) Amer 109 mL/min >60 [facility] Work Phone: Comment on above: GFR Calc Estimated GFR (MDRD) Non-Af Amer 90 mL/min >60 [facility] Work Phone: Comment on above: Non- GFR Calc Platelets bldon 08-09-2021 Platelets (Bld) [#/Vol] 264 10*3/uL 150-450 [facility] Work Phone: Serum or plasma calcium norman urement (mass/volume)on 08-09-2021 Calcium [Mass/Vol] 8.9 mg/dL 8.5-10.1 [facility] Work Phone: Serum or plasma creatinine m easurement (mass/volume)on 08-09-2021 Creatinine [Mass/Vol] 0.68 mg/dL 0.55-1.02 [facility] Work Phone: Comment on above: The validity of the calculated GFR & GFRAA in patients over 70 years has not been determined. Clinical correlation is essential. Serum or plasma urea nitroge n measurement (mass/volume)on 08-09-2021 Urea nitrogen [Mass/Vol] 26 mg/dL 7-18 [facility] Work Phone: Thin prep Papanicolaou smear with manual screeningon 08-09-2021 Thin prep Papanicolaou smear with manual screening 2 5-15 [facility] Work Phone: Basophil percentageon 2021 Basophil percentage 0 SEEN /hpf [facility] Work Phone: Bilirubin Test strip Ql (U)o n 07-28-2021 Bilirubin Ql (U) Negative Negative [facility] Work Phone: Culture, urineon 07-28-2021 Bacteria identified Cx Nom (U) Culture exhibits no growth. [facility] Work Phone: Ketones Test strip Ql (U)on 07-28-2021 Ketones Ql (U) Negative Negative [facility] Work Phone: Mucus LM Ql (Urine sed)on Mucus Ql (Urine sed) 0 SEEN /hpf [facility] Work Phone: Nitrite Test strip Ql (U)on 07-28-2021 Nitrite Ql (U) Negative Negative [facility] Work Phone: Protein Test strip Ql (U)on 07-28-2021 Protein Ql (U) Negative Negative [facility] Work Phone: Squamous epithelial cells de tection in urine sediment by light microscopyon 07-28-2021 Epithelial cells.squamous LM Ql (Urine sed) 0 SEEN /hpf [facility] Work Phone: Urine blood detectionon 07-10 RBC Ql (U) Negative Negative [facility] Work Phone: RBC Ql (U) 0 SEEN /hpf [facility] Work Phone: Urine clarityon 07-28-2021 Clarity (U) Clear Clear [facility] Work Phone: Urine color determinationon 07-28-2021 Color (U) Yellow Yellow [facility] Work Phone: Urine glucose detectionon Glucose Ql (U) Normal mg/dl Normal [facility] Work Phone: Urine leukocyte esterase det ection by dipstickon 07-28-2021 Leukocyte esterase Test strip Ql (U) Negative Negative [facility] Work Phone: Urine pHon 07-28-2021 pH (U) 8.0 [pH] [facility] Work Phone: Urine sediment bacteria coun t by microscopy (number/high power field)on 07-28-2021 Bacteria LM.HPF (Urine sed) [#/Area] 0 /[HPF] None Seen [facility] Work Phone: Urine specific gravity measu rementon 07-28-2021 Specific gravity (U) [Rel density] 1.015 [facility] Work Phone: Urobilinogen Auto test strip Ql (U)on 07-28-2021 Urobilinogen Ql (U) Normal mg/dl Normal [facility] Work Phone: Blood manual differential co mment interpretation (narrative result)on 07-26-2021 Manual differential comment Lamin (Bld) [Interp] SCANNED [facility] Work Phone: Comment on above: LYMPHOPENIA NOTED No Panel Informationon 07-26 Atypical Lymphocytes RARE % [facility] Work Phone: Absolute lymphocyte counton 07-25-2021 Lymphocytes Auto (Unsp spec) [#/Vol] 0.88 10*3/uL 0.83-4.51 [facility] Work Phone: Basophil percentageon 2021 Basophil percentage 3.2 mg/dL 2.5-4.9 [facility] Work Phone: Basophils/100 WBC (Bld) 0.4 % 0-1 [facility] Work Phone: Bilirubin [Mass/Vol] 0.50 mg/dL 0.20-1.[address] [facility] Work Phone: Comment on above: For patients on eltr ombopag therapy, use of Dimension [place] TBIL is not recommended. Chloride [Moles/Vol] 98 mmol/L 98-[address] [facility] Work Phone: Eosinophils/100 WBC (Bld) 0.7 % 0-5 [facility] Work Phone: Glucose [Mass/Vol] 126 mg/dL 74-106 [facility] Work Phone: Comment on above: Fasting Glucose resu lt greater than or equal to 126 mg/dL suggests DIABETES MELLITUS per A.D.A. criteria. Neutrophils (Bld) [#/Vol] 6.1 10*3/uL 2.0-7.7 [facility] Work Phone: [phone] Neutrophils/100 WBC (Bld) 73.3 % 47-70 [facility] Work Phone: Potassium [Moles/Vol] 3.8 mmol/L 3.5-5.1 [facility] Work Phone: Protein [Mass/Vol] 7.0 g/dL 6.4-8.2 [facility] Work Phone: [phone] Sodium [Moles/Vol] 138 mmol/L 136-145 [facility] Work Phone: WBC (Bld) [#/Vol] 8.4 10*3/uL 4.4-11.0 [facility] Work Phone: Blood erythrocytes count (nu mber/volume)on 07-25-2021 RBC (Bld) [#/Vol] 3.72 10*6/uL 4.2-5.4 [facility] Work Phone: [phone] Blood hemoglobin measurement (mass/volume)on 07-25-2021 Hemoglobin (Bld) [Mass/Vol] 11.6 g/dL 12.0-15.0 [facility] Work Phone: Blood lymphocytes/100 leukoc yteson 07-25-2021 Lymphocytes/100 WBC (Bld) 10.5 % 19-41 [facility] Work Phone: Blood monocytes/100 leukocyt eson 07-25-2021 Monocytes/100 WBC (Bld) 14.6 % 0-10 [facility] Work Phone: Blood platelet mean volumeon 07-25-2021 Platelet mean volume (Bld) [Entitic vol] 9.9 fL 6.2-12.0 [facility] Work Phone: [phone] Determination of erythrocyte mean corpuscular volume (MCV)on 07-25-2021 MCV (RBC) [Entitic vol] 100.3 fL 81-99 [facility] Work Phone: Glucose Glucometer (BldC) [M ass/Vol]on 07-25-2021 Glucose [Mass/Vol] 121 mg/dL 70-110 [facility] Work Phone: Comment on above: MANAGEMENT OF PATIEN T CARE PER NURSING PROTOCOL Hematocrit Auto (Bld) [Volum e fraction]on 07-25-2021 Hematocrit (Bld) [Volume fraction] 37.3 % 37-47 [facility] Work Phone: Laboratory - Chemistry and C hemistry - challengeon 07-25-2021 ALP [Catalytic activity/Vol] 84 U/L 45-117 [facility] Work Phone: ALT [Catalytic activity/Vol] 22 U/L 13-56 [facility] Work Phone: CO2 [Moles/Vol] 39.0 mmol/L 21.0-32.0 [facility] Work Phone: Globulin (S) [Mass/Vol] 3.5 g/dL 2.2-4.2 [facility] Work Phone: Magnesium [Mass/Vol] 2.2 mg/dL 1.6-2.[address] [facility] Work Phone: Urea nitrogen/Creatinine [Mass ratio] 31.3 mg/mg 10-20 [facility] Work Phone: Laboratory - Hematology and Cell countson 07-25-2021 Erythrocyte distribution width (RBC) [Entitic vol] 47.0 fL 35.1-43.9 [facility] Work Phone: Erythrocyte distribution width (RBC) [Ratio] 12.8 % 11.6-14.6 [facility] Work Phone: Immature granulocytes/100 WBC (Bld) 0.500 % 0.0-0.9 [facility] Work Phone: Comment on above: IG% - Immature Granu locytes (promyelocytes, myelocytes and metamyelocytes) > 1% indicates that a LEFT SHIFT is Present. MCH (RBC) [Entitic mass] 31.2 pg 27.0-32.0 [facility] Work Phone: Nucleated RBC/100 WBC (Bld) [Ratio] 0 % 0-5 [facility] Work Phone: MCHC Auto (RBC) [Mass/Vol]on 07-25-2021 MCHC (RBC) [Mass/Vol] 31.1 g/dL 32-36 [facility] Work Phone: No Panel Informationon 07-25 SARS-CoV-2 Antigen (Rapid) [facility] Work Phone: Estimated Creatinine Clearance Calc 41.45 ml/min [facility] Work Phone: Estimated GFR (MDRD) Amer 117 mL/min >60 [facility] Work Phone: Comment on above: GFR Calc Estimated GFR (MDRD) Non-Af Amer 97 mL/min >60 [facility] Work Phone: Comment on above: Non- GFR Calc Platelets bldon 07-25-2021 Platelets (Bld) [#/Vol] 193 10*3/uL 150-450 [facility] Work Phone: Serum or plasma albumin norman urement (mass/volume)on 07-25-2021 Albumin [Mass/Vol] 3.5 g/dL 3.2-5.0 [facility] Work Phone: Serum or plasma albumin/glob ulin mass ratioon 07-25-2021 Albumin/Globulin [Mass ratio] 1.0 {ratio} 0.9-2.4 [facility] Work Phone: Serum or plasma calcium norman urement (mass/volume)on 07-25-2021 Calcium [Mass/Vol] 8.7 mg/dL 8.5-10.1 [facility] Work Phone: Serum or plasma creatinine m easurement (mass/volume)on 07-25-2021 Creatinine [Mass/Vol] 0.64 mg/dL 0.55-1.02 [facility] Work Phone: Comment on above: The validity of the calculated GFR & GFRAA in patients over 70 years has not been determined. Clinical correlation is essential. Serum or plasma urea nitroge n measurement (mass/volume)on 07-25-2021 Urea nitrogen [Mass/Vol] 20 mg/dL 7-18 [facility] Work Phone: Thin prep Papanicolaou smear with manual screeningon 07-25-2021 Thin prep Papanicolaou smear with manual screening 22 U/L 15-37 [facility] Work Phone: Thin prep Papanicolaou smear with manual screening 1 5-15 [facility] Work Phone: Basophil percentageon 2021 Basophil percentage 0 SEEN /hpf [facility] Work Phone: Bilirubin Test strip Ql (U)o n 07-24-2021 Bilirubin Ql (U) Negative Negative [facility] Work Phone: Culture, urineon 07-24-2021 Bacteria identified Cx Nom (U) Culture exhibits no growth. [facility] Work Phone: Hyaline casts LM.LPF (Urine sed) [#/Area]on 07-24-2021 Hyaline casts (Urine sed) [#/Area] 0 /[LPF] [facility] Work Phone: Ketones Test strip Ql (U)on 07-24-2021 Ketones Ql (U) Negative Negative [facility] Work Phone: Laboratory - Chemistry and C hemistry - challengeon 07-24-2021 Natriuretic peptide B (Bld) [Mass/Vol] 82.2 pg/mL 0-100 [facility] Work Phone: Mucus LM Ql (Urine sed)on Mucus Ql (Urine sed) 0 SEEN /hpf [facility] Work Phone: Nitrite Test strip Ql (U)on 07-24-2021 Nitrite Ql (U) Negative Negative [facility] Work Phone: No Panel Informationon 07-24 Troponin I High Sensitivity 17 pg/mL 3.0-54.0 [facility] Work Phone: Comment on above: Please Note: New Jennifer t Units and Gender Specific Reference Ranges. For more information see Policy Stat Procedure [place] High Sensitivity Troponin (TNIH) and attachments. Protein Test strip Ql (U)on 07-24-2021 Protein Ql (U) 30 mg/dl Negative [facility] Work Phone: Squamous epithelial cells de tection in urine sediment by light microscopyon 07-24-2021 Epithelial cells.squamous LM Ql (Urine sed) 0-5 SEEN /hpf [facility] Work Phone: Urine blood detectionon 07-09 RBC Ql (U) 10 /ul Negative [facility] Work Phone: RBC Ql (U) 0-5 SEEN /hpf [facility] Work Phone: Urine clarityon 07-24-2021 Clarity (U) Clear Clear [facility] Work Phone: Urine color determinationon 07-24-2021 Color (U) Yellow Yellow [facility] Work Phone: Urine glucose detectionon Glucose Ql (U) Normal mg/dl Normal [facility] Work Phone: Urine leukocyte esterase det ection by dipstickon 07-24-2021 Leukocyte esterase Test strip Ql (U) Negative Negative [facility] Work Phone: Urine pHon 07-24-2021 pH (U) 6.5 [pH] [facility] Work Phone: Urine sediment bacteria coun t by microscopy (number/high power field)on 07-24-2021 Bacteria LM.HPF (Urine sed) [#/Area] 1 /[HPF] None Seen [facility] Work Phone: Urine specific gravity measu rementon 07-24-2021 Specific gravity (U) [Rel density] 1.010 [facility] Work Phone: Urobilinogen Auto test strip Ql (U)on 07-24-2021 Urobilinogen Ql (U) Normal mg/dl Normal [facility] Work Phone: Comprehensive Panelon 2018 ALP [Catalytic activity/Vol] 74 U/L Normal 45-117 [facility] Comment on above: Performed By: #### P 14 #### [facility] [address] [place], [place] [address] Protein [Mass/Vol] 7.1 g/dL Normal 6.4-8.2 [facility] Comment on above: Performed By: #### P 14 #### [facility] [address] [place], [place] [address] Bilirubin [Mass/Vol] 0.8 mg/dL Normal 0.2-1.0 [facility] Comment on above: Performed By: #### P 14 #### [facility] [address] [place], [place] [address] ALT [Catalytic activity/Vol] 50 U/L Normal 12-78 [facility] Comment on above: Performed By: #### P 14 #### [facility] [address] [place], [place] [address] AST [Catalytic activity/Vol] 18 U/L Normal 15-37 [facility] Comment on above: Performed By: #### P 14 #### [facility] [address] [place], [place] [address] Creatinine [Mass/Vol] 0.65 mg/dL Normal 0.51-0.95 [facility] Comment on above: Performed By: #### P 14 #### [facility] [address] [place], [place] [address] Albumin [Mass/Vol] 3.7 g/dL Normal 3.4-5.0 [facility] Comment on above: Performed By: #### P 14 #### [facility] [address] [place], [place] [address] Anion gap [Moles/Vol] 8 mmol/L Normal 8-16 [facility] Comment on above: Performed By: #### P 14 #### [facility] [address] [place], [place] [address] CO2 [Moles/Vol] 33 mmol/L High 21-32 [facility] Comment on above: Performed By: #### P 14 #### [facility] [address] [place], [place] [address] Glucose [Mass/Vol] 187 mg/dL High 70-99 [facility] Comment on above: Performed By: #### P 14 #### [facility] [address] [place], [place] [address] Urea nitrogen [Mass/Vol] 27 mg/dL High 7-18 [facility] Comment on above: Performed By: #### P 14 #### [facility] [address] [place], [place] [address] Calcium [Mass/Vol] 8.9 mg/dL Normal 8.5-10.1 [facility] Comment on above: Performed By: #### P 14 #### [facility] [address] [place], [place] [address] Chloride [Moles/Vol] 95 mmol/L Low 98-107 [facility] Comment on above: Performed By: #### P 14 #### [facility] [address] [place], [place] [address] Potassium [Moles/Vol] 4.5 mmol/L Normal 3.5-5.1 [facility] Comment on above: Performed By: #### P 14 #### [facility] [address] [place], [place] [address] Sodium [Moles/Vol] 131 mmol/L Low 136-145 [facility] Comment on above: Performed By: #### P 14 #### [facility] [address] [place], [place] [address] Glucose Meteron 12-30-2018 Glucose [Mass/Vol] 149 mg/dL High 70-99 [facility] Comment on above: Result Comment: SANDRA CAVANAUGH Performed By: #### G LMET #### [facility] [address] [place], [place] [address] Hemogram/Diffon 12-30-2018 Abs Immature Grans 0.12 thou/cmm High 0.00-0.05 [facility] Comment on above: Performed By: #### P 14 #### [facility] [address] [place] [address] Abs Neut (ANC) 9.65 thou/cmm High 1.56-6.13 [facility] Comment on above: Performed By: #### P 14 #### [facility] [address] [place] [address] Abs. Baso 0.02 thou/cmm Normal 0.01-0.08 [facility] Comment on above: Performed By: #### P 14 #### [facility] [address] [place] [address] Abs. [place] 0.88 thou/cmm High 0.27-0.70 [facility] Comment on above: Performed By: #### P 14 #### [facility] [address] [place] [address] Basophils/100 WBC (Bld) 0.2 % Normal [facility] Comment on above: Performed By: #### P 14 #### [facility] [address] [place] [address] Eosinophils (Bld) [#/Vol] 0.00 thou/cmm Normal 0.00-0.31 [facility] Comment on above: Performed By: #### P 14 #### [place] [address] Eosinophils/100 WBC (Bld) 0.0 % Normal [facility] Comment on above: Performed By: #### P 14 #### [facility] [address] [place] [address] Erythrocyte distribution width (RBC) [Ratio] 13.2 % Normal 11.7-14.4 [facility] Comment on above: Performed By: #### P 14 #### [facility] [address] [place] [address] Hematocrit (Bld) [Volume fraction] 45.2 % High 34.1-44.9 [facility] Comment on above: Performed By: #### P 14 #### [facility] [address] [place] [address] Hemoglobin (Bld) [Mass/Vol] 14.5 g/dL Normal 11.2-15.7 [facility] Comment on above: Performed By: #### P 14 #### [facility] [address] [place] [address] Immature Grans 1.00 % Normal [facility] Comment on above: Performed By: #### P 14 #### [facility] [address] [place] [address] Lymphocytes (Bld) [#/Vol] 0.86 thou/cmm Low 1.18-3.74 [facility] Comment on above: Performed By: #### P 14 #### [facility] [address] [place] [address] Lymphocytes/100 WBC (Bld) 7.5 % Normal [facility] Comment on above: Performed By: #### P 14 #### [facility] [address] [place] [address] MCH (RBC) [Entitic mass] 30.5 pg Normal 25.6-32.2 [facility] Comment on above: Performed By: #### P 14 #### [facility] [address] [place] [address] MCHC (RBC) [Mass/Vol] 32.1 % Normal 31.6-34.8 [facility] Comment on above: Performed By: #### P 14 #### [facility] [address] [place] [address] MCV (RBC) [Entitic vol] 95.0 fL High 79.4-94.8 [facility] Comment on above: Performed By: #### P 14 #### [facility] [address] [place] [address] Monocytes/100 WBC (Bld) 7.6 % Normal [facility] Comment on above: Performed By: #### P 14 #### [facility] [address] [place] [address] Platelet mean volume (Bld) [Entitic vol] 9.6 fL Normal 9.4-12.3 [facility] Comment on above: Performed By: #### P 14 #### [facility] [address] [place] [address] Platelets (Bld) [#/Vol] 340 thou/cmm Normal 182-369 [facility] Comment on above: Performed By: #### P 14 #### [facility] [address] [place] [address] RBC (Bld) [#/Vol] 4.76 mil/cmm Normal 3.93-5.22 [facility] Comment on above: Performed By: #### P 14 #### [facility] [address] [place] [address] RDW SD 46.4 fl High 36.4-46.3 [facility] Comment on above: Performed By: #### P 14 #### [facility] [address] [place] [address] Seg Neutrophil 83.7 % Normal [facility] Comment on above: Performed By: #### P 14 #### [facility] [address] [place] [address] WBC (Bld) [#/Vol] 11.53 thou/cmm High 3.98-10.04 [facility] Comment on above: Performed By: #### P 14 #### [facility] [address] [place] [address] MDRD GFRon 12-30-2018 GFR/1.73 sq M predicted among non-blacks MDRD (S/P/Bld) [Vol rate/Area] mL/min/{1.73_m2} Normal >60mL/min/1. 73m2 [facility] Comment on above: Result Comment: If t he patient is , multiply the result by 1.210. Performed By: #### G FR #### [facility] [address] [place] [address] Comprehensive Panelon 2018 ALP [Catalytic activity/Vol] 72 U/L Normal 45-117 [facility] Comment on above: Performed By: #### P 14 #### [place] [address] Bilirubin [Mass/Vol] 0.6 mg/dL Normal 0.2-1.0 [facility] Comment on above: Performed By: #### P 14 #### [facility] [address] [place], [place] [address] Creatinine [Mass/Vol] 0.66 mg/dL Normal 0.51-0.95 [facility] Comment on above: Performed By: #### P 14 #### [facility] [address] [place], [place] [address] Protein [Mass/Vol] 7.1 g/dL Normal 6.4-8.2 [facility] Comment on above: Performed By: #### P 14 #### [facility] [address] [place], [place] [address] ALT [Catalytic activity/Vol] 55 U/L Normal 12-78 [facility] Comment on above: Performed By: #### P 14 #### [facility] [address] [place], [place] [address] AST [Catalytic activity/Vol] 15 U/L Normal 15-37 [facility] Comment on above: Performed By: #### P 14 #### [facility] [address] [place], [place] [address] Albumin [Mass/Vol] 3.8 g/dL Normal 3.4-5.0 [facility] Comment on above: Performed By: #### P 14 #### [facility] [address] [place], [place] [address] Anion gap [Moles/Vol] 11 mmol/L Normal 8-16 [facility] Comment on above: Performed By: #### P 14 #### [facility] [address] [place], [place] [address] CO2 [Moles/Vol] 29 mmol/L Normal 21-32 [facility] Comment on above: Performed By: #### P 14 #### [facility] [address] [place], [place] [address] Glucose [Mass/Vol] 203 mg/dL High 70-99 [facility] Comment on above: Performed By: #### P 14 #### [facility] [address] [place], [place] [address] Urea nitrogen [Mass/Vol] 32 mg/dL High 7-18 [facility] Comment on above: Performed By: #### P 14 #### [facility] [address] [place] [address] Calcium [Mass/Vol] 9.0 mg/dL Normal 8.5-10.1 [facility] Comment on above: Performed By: #### P 14 #### [facility] [address] [place] [address] Chloride [Moles/Vol] 96 mmol/L Low 98-107 [facility] Comment on above: Performed By: #### P 14 #### [facility] [address] [place] [address] Potassium [Moles/Vol] 4.1 mmol/L Normal 3.5-5.1 [facility] Comment on above: Performed By: #### P 14 #### [facility] [address] [place] [address] Sodium [Moles/Vol] 132 mmol/L Low 136-145 [facility] Comment on above: Performed By: #### P 14 #### [facility] [address] [place] [address] Hemogram/Diffon 12-29-2018 Abs Immature Grans 0.13 thou/cmm High 0.00-0.05 [facility] Comment on above: Performed By: #### P 14 #### [facility] [address] [place] [address] Abs Neut (ANC) 9.82 thou/cmm High 1.56-6.13 [facility] Comment on above: Performed By: #### P 14 #### [facility] [address] [place] [address] Abs. Baso 0.01 thou/cmm Normal 0.01-0.08 [facility] Comment on above: Performed By: #### P 14 #### [facility] [address] [place] [address] Abs. [place] 0.69 thou/cmm Normal 0.27-0.70 [facility] Comment on above: Performed By: #### P 14 #### [facility] [address] [place], [place] [address] Basophils/100 WBC (Bld) 0.1 % Normal [facility] Comment on above: Performed By: #### P 14 #### [facility] [address] [place], [place] [address] Eosinophils (Bld) [#/Vol] 0.00 thou/cmm Normal 0.00-0.31 [facility] Comment on above: Performed By: #### P 14 #### [facility] [address] [place], [place] [address] Eosinophils/100 WBC (Bld) 0.0 % Normal [facility] Comment on above: Performed By: #### P 14 #### [facility] [address] [place], [place] [address] Erythrocyte distribution width (RBC) [Ratio] 13.3 % Normal 11.7-14.4 [facility] Comment on above: Performed By: #### P 14 #### [facility] [address] [place], [place] [address] Hematocrit (Bld) [Volume fraction] 43.2 % Normal 34.1-44.9 [facility] Comment on above: Performed By: #### P 14 #### [facility] [address] [place], [place] [address] Hemoglobin (Bld) [Mass/Vol] 14.2 g/dL Normal 11.2-15.7 [facility] Comment on above: Performed By: #### P 14 #### [facility] [address] [place] [address] Immature Grans 1.10 % Normal [facility] Comment on above: Performed By: #### P 14 #### [facility] [address] [place], [place] [address] Lymphocytes (Bld) [#/Vol] 0.88 thou/cmm Low 1.18-3.74 [facility] Comment on above: Performed By: #### P 14 #### [facility] [address] [place], [place] [address] Lymphocytes/100 WBC (Bld) 7.6 % Normal [facility] Comment on above: Performed By: #### P 14 #### [facility] [address] [place], [place] [address] MCH (RBC) [Entitic mass] 30.9 pg Normal 25.6-32.2 [facility] Comment on above: Performed By: #### P 14 #### [facility] [address] [place], [place] [address] MCHC (RBC) [Mass/Vol] 32.9 % Normal 31.6-34.8 [facility] Comment on above: Performed By: #### P 14 #### [facility] [address] [place], [place] [address] MCV (RBC) [Entitic vol] 93.9 fL Normal 79.4-94.8 [facility] Comment on above: Performed By: #### P 14 #### [facility] [address] [place], [place] [address] Monocytes/100 WBC (Bld) 6.0 % Normal [facility] Comment on above: Performed By: #### P 14 #### [facility] [address] [place], [place] [address] Platelet mean volume (Bld) [Entitic vol] 10.1 fL Normal 9.4-12.3 [facility] Comment on above: Performed By: #### P 14 #### [facility] [address] [place], [place] [address] Platelets (Bld) [#/Vol] 330 thou/cmm Normal 182-369 [facility] Comment on above: Performed By: #### P 14 #### [facility] [address] [place], [place] [address] RBC (Bld) [#/Vol] 4.60 mil/cmm Normal 3.93-5.22 [facility] Comment on above: Performed By: #### P 14 #### [facility] [address] [place], [place] [address] RDW SD 45.6 fl Normal 36.4-46.3 [facility] Comment on above: Performed By: #### P 14 #### [facility] [address] [place], [place] [address] Seg Neutrophil 85.2 % Normal [facility] Comment on above: Performed By: #### P 14 #### [facility] [address] [place] [address] WBC (Bld) [#/Vol] 11.52 thou/cmm High 3.98-10.04 [facility] Comment on above: Performed By: #### P 14 #### [facility] [address] [place] [address] Troponin Ion 12-29-2018 Troponin I.cardiac [Mass/Vol] ng/mL Normal 0.015-0.045 [facility] Comment on above: Performed By: #### P 14 #### [facility] [address] [place] [address] Comprehensive Panelon 2018 ALP [Catalytic activity/Vol] 75 U/L Normal 45-117 [facility] Comment on above: Performed By: #### P 14 #### [facility] [address] [place] [address] Bilirubin [Mass/Vol] 0.6 mg/dL Normal 0.2-1.0 [facility] Comment on above: Performed By: #### P 14 #### [facility] [address] [place] [address] Protein [Mass/Vol] 7.1 g/dL Normal 6.4-8.2 [facility] Comment on above: Performed By: #### P 14 #### [facility] [address] [place] [address] ALT [Catalytic activity/Vol] 57 U/L Normal 12-78 [facility] Comment on above: Performed By: #### P 14 #### [facility] [address] [place] [address] AST [Catalytic activity/Vol] 22 U/L Normal 15-37 [facility] Comment on above: Performed By: #### P 14 #### [facility] [address] [place] [address] Creatinine [Mass/Vol] 0.53 mg/dL Normal 0.51-0.95 [facility] Comment on above: Performed By: #### P 14 #### [facility] [address] [place], [place] [address] Albumin [Mass/Vol] 3.7 g/dL Normal 3.4-5.0 [facility] Comment on above: Performed By: #### P 14 #### [facility] [address] [place], [place] [address] Anion gap [Moles/Vol] 9 mmol/L Normal 8-16 [facility] Comment on above: Performed By: #### P 14 #### [facility] [address] [place], [place] [address] CO2 [Moles/Vol] 30 mmol/L Normal 21-32 [facility] Comment on above: Performed By: #### P 14 #### [facility] [address] [place], [place] [address] Urea nitrogen [Mass/Vol] 20 mg/dL High 7-18 [facility] Comment on above: Performed By: #### P 14 #### [facility] [address] [place], [place] [address] Calcium [Mass/Vol] 8.7 mg/dL Normal 8.5-10.1 [facility] Comment on above: Performed By: #### P 14 #### [facility] [address] [place], [place] [address] Glucose [Mass/Vol] 179 mg/dL High 70-99 [facility] Comment on above: Performed By: #### P 14 #### [facility] [address] [place], [place] [address] Chloride [Moles/Vol] 102 mmol/L Normal 98-107 [facility] Comment on above: Performed By: #### P 14 #### [facility] [address] [place], [place] [address] Potassium [Moles/Vol] 4.1 mmol/L Normal 3.5-5.1 [facility] Comment on above: Performed By: #### P 14 #### [facility] [address] [place], [place] [address] Sodium [Moles/Vol] 137 mmol/L Normal 136-145 [facility] Comment on above: Performed By: #### P 14 #### [facility] [address] [place] [address] Ferritinon 12-28-2018 Ferritin [Mass/Vol] 446.20 ng/mL High 8.00-252.00 [facility] Comment on above: Performed By: #### P 14 #### [facility] [address] [place] [address] Hemogram/Diffon 12-28-2018 Abs Immature Grans 0.08 thou/cmm High 0.00-0.05 [facility] Comment on above: Performed By: #### P 14 #### [facility] [address] [place] [address] Abs Neut (ANC) 9.48 thou/cmm High 1.56-6.13 [facility] Comment on above: Performed By: #### P 14 #### [place] [address] Abs. Baso 0.02 thou/cmm Normal 0.01-0.08 [facility] Comment on above: Performed By: #### P 14 #### [facility] [address] [place] [address] Abs. [place] 0.80 thou/cmm High 0.27-0.70 [facility] Comment on above: Performed By: #### P 14 #### [facility] [address] [place], [place] [address] Basophils/100 WBC (Bld) 0.2 % Normal [facility] Comment on above: Performed By: #### P 14 #### [address] [address] Eosinophils (Bld) [#/Vol] 0.00 thou/cmm Normal 0.00-0.31 [facility] Comment on above: Performed By: #### P 14 #### [facility] [address] [place], [place] [address] Eosinophils/100 WBC (Bld) 0.0 % Normal [facility] Comment on above: Performed By: #### P 14 #### [place] [address] Erythrocyte distribution width (RBC) [Ratio] 13.2 % Normal 11.7-14.4 [facility] Comment on above: Performed By: #### P 14 #### [facility] [address] [place] [address] Hematocrit (Bld) [Volume fraction] 43.3 % Normal 34.1-44.9 [facility] Comment on above: Performed By: #### P 14 #### [facility] [address] [place] [address] Hemoglobin (Bld) [Mass/Vol] 14.2 g/dL Normal 11.2-15.7 [facility] Comment on above: Performed By: #### P 14 #### [facility] [address] [place] [address] Immature Grans 0.70 % Normal [facility] Comment on above: Performed By: #### P 14 #### [facility] [address] [place] [address] Lymphocytes (Bld) [#/Vol] 0.85 thou/cmm Low 1.18-3.74 [facility] Comment on above: Performed By: #### P 14 #### [facility] [address] [place] [address] Lymphocytes/100 WBC (Bld) 7.6 % Normal [facility] Comment on above: Performed By: #### P 14 #### [facility] [address] [place] [address] MCH (RBC) [Entitic mass] 30.9 pg Normal 25.6-32.2 [facility] Comment on above: Performed By: #### P 14 #### [facility] [address] [place] [address] MCHC (RBC) [Mass/Vol] 32.8 % Normal 31.6-34.8 [facility] Comment on above: Performed By: #### P 14 #### [facility] [address] [place] [id number] MCV (RBC) [Entitic vol] 94.1 fL Normal 79.4-94.8 [facility] Comment on above: Performed By: #### P 14 #### [facility] [address] [place] [address] Monocytes/100 WBC (Bld) 7.1 % Normal [facility] Comment on above: Performed By: #### P 14 #### [facility] [address] [place] [address] Platelet mean volume (Bld) [Entitic vol] 9.6 fL Normal 9.4-12.3 [facility] Comment on above: Performed By: #### P 14 #### [facility] [address] [place] [address] Platelets (Bld) [#/Vol] 291 thou/cmm Normal 182-369 [facility] Comment on above: Performed By: #### P 14 #### [facility] [address] [place] [address] RBC (Bld) [#/Vol] 4.60 mil/cmm Normal 3.93-5.22 [facility] Comment on above: Performed By: #### P 14 #### [facility] [address] [place] [address] RDW SD 45.1 fl Normal 36.4-46.3 [facility] Comment on above: Performed By: #### P 14 #### [facility] [address] [place] [address] Seg Neutrophil 84.4 % Normal [facility] Comment on above: Performed By: #### P 14 #### [facility] [address] [place] [address] WBC (Bld) [#/Vol] 11.23 thou/cmm High 3.98-10.04 [facility] Comment on above: Performed By: #### P 14 #### [facility] [address] [place] [address] Comprehensive Panelon 2018 Creatinine [Mass/Vol] 0.57 mg/dL Normal 0.51-0.95 [facility] Comment on above: Performed By: #### P 14 #### [facility] [address] [place] [address] ALP [Catalytic activity/Vol] 72 U/L Normal 45-117 [facility] Comment on above: Performed By: #### P 14 #### [facility] [address] [place], [place] [address] Protein [Mass/Vol] 6.6 g/dL Normal 6.4-8.2 [facility] Comment on above: Performed By: #### P 14 #### [facility] [address] [place], [place] [address] Bilirubin [Mass/Vol] 0.7 mg/dL Normal 0.2-1.0 [facility] Comment on above: Performed By: #### P 14 #### [facility] [address] [place], [place] [address] ALT [Catalytic activity/Vol] 55 U/L Normal 12-78 [facility] Comment on above: Performed By: #### P 14 #### [facility] [address] [place], [place] [address] AST [Catalytic activity/Vol] 21 U/L Normal 15-37 [facility] Comment on above: Performed By: #### P 14 #### [facility] [address] [place], [place] [address] Albumin [Mass/Vol] 3.6 g/dL Normal 3.4-5.0 [facility] Comment on above: Performed By: #### P 14 #### [facility] [address] [place], [place] [address] Anion gap [Moles/Vol] 10 mmol/L Normal 8-16 [facility] Comment on above: Performed By: #### P 14 #### [facility] [address] [place], [place] [address] CO2 [Moles/Vol] 32 mmol/L Normal 21-32 [facility] Comment on above: Performed By: #### P 14 #### [facility] [address] [place], [place] [address] Glucose [Mass/Vol] 122 mg/dL High 70-99 [facility] Comment on above: Performed By: #### P 14 #### [facility] [address] [place], [place] [address] Urea nitrogen [Mass/Vol] 19 mg/dL High 7-18 [facility] Comment on above: Performed By: #### P 14 #### [facility] [address] [place] [address] Calcium [Mass/Vol] 8.8 mg/dL Normal 8.5-10.1 [facility] Comment on above: Performed By: #### P 14 #### [facility] [address] [place] [address] Chloride [Moles/Vol] 99 mmol/L Normal 98-107 [facility] Comment on above: Performed By: #### P 14 #### [facility] [address] [place] [address] Potassium [Moles/Vol] 3.4 mmol/L Low 3.5-5.1 [facility] Comment on above: Performed By: #### P 14 #### [facility] [address] [place] [address] Sodium [Moles/Vol] 138 mmol/L Normal 136-145 [facility] Comment on above: Performed By: #### P 14 #### [facility] [address] [place] [address] Hemogram/Diffon 12-27-2018 Abs Immature Grans 0.05 thou/cmm Normal 0.00-0.05 [facility] Comment on above: Performed By: #### P 14 #### [facility] [address] [place] [address] Abs Neut (ANC) 5.43 thou/cmm Normal 1.56-6.13 [facility] Comment on above: Performed By: #### P 14 #### [facility] [address] [place] [address] Abs. Baso 0.03 thou/cmm Normal 0.01-0.08 [facility] Comment on above: Performed By: #### P 14 #### [facility] [address] [place] [address] Abs. [place] 1.04 thou/cmm High 0.27-0.70 [facility] Comment on above: Performed By: #### P 14 #### [facility] [address] [place] [address] Basophils/100 WBC (Bld) 0.3 % Normal [facility] Comment on above: Performed By: #### P 14 #### [facility] [address] [place], [place] [address] Eosinophils (Bld) [#/Vol] 0.08 thou/cmm Normal 0.00-0.31 [facility] Comment on above: Performed By: #### P 14 #### [facility] [address] [place], [place] [address] Eosinophils/100 WBC (Bld) 0.9 % Normal [facility] Comment on above: Performed By: #### P 14 #### [facility] [address] [place] [address] Erythrocyte distribution width (RBC) [Ratio] 13.2 % Normal 11.7-14.4 [facility] Comment on above: Performed By: #### P 14 #### [facility] [address] [place] [address] Hematocrit (Bld) [Volume fraction] 39.7 % Normal 34.1-44.9 [facility] Comment on above: Performed By: #### P 14 #### [facility] [address] [place] [address] Hemoglobin (Bld) [Mass/Vol] 12.7 g/dL Normal 11.2-15.7 [facility] Comment on above: Performed By: #### P 14 #### [facility] [address] [place] [address] Immature Grans 0.60 % Normal [facility] Comment on above: Performed By: #### P 14 #### [facility] [address] [place], [place] [address] Lymphocytes (Bld) [#/Vol] 2.06 thou/cmm Normal 1.18-3.74 [facility] Comment on above: Performed By: #### P 14 #### [facility] [address] [place], [place] [address] Lymphocytes/100 WBC (Bld) 23.7 % Normal [facility] Comment on above: Performed By: #### P 14 #### [facility] [address] [place] [address] MCH (RBC) [Entitic mass] 30.2 pg Normal 25.6-32.2 [facility] Comment on above: Performed By: #### P 14 #### [facility] [address] [place] [address] MCHC (RBC) [Mass/Vol] 32.0 % Normal 31.6-34.8 [facility] Comment on above: Performed By: #### P 14 #### [facility] [address] [place] [address] MCV (RBC) [Entitic vol] 94.5 fL Normal 79.4-94.8 [facility] Comment on above: Performed By: #### P 14 #### [facility] [address] [place] [address] Monocytes/100 WBC (Bld) 12.0 % Normal [facility] Comment on above: Performed By: #### P 14 #### [facility] [address] [place] [address] Platelet mean volume (Bld) [Entitic vol] 9.8 fL Normal 9.4-12.3 [facility] Comment on above: Performed By: #### P 14 #### [facility] [address] [place] [address] Platelets (Bld) [#/Vol] 240 thou/cmm Normal 182-369 [facility] Comment on above: Performed By: #### P 14 #### [facility] [address] [place] [address] RBC (Bld) [#/Vol] 4.20 mil/cmm Normal 3.93-5.22 [facility] Comment on above: Performed By: #### P 14 #### [facility] [address] [place] [address] RDW SD 45.4 fl Normal 36.4-46.3 [facility] Comment on above: Performed By: #### P 14 #### [facility] [address] [place] [address] Seg Neutrophil 62.5 % Normal [facility] Comment on above: Performed By: #### P 14 #### [facility] [address] [place] [address] WBC (Bld) [#/Vol] 8.68 thou/cmm Normal 3.98-10.04 [facility] Comment on above: Performed By: #### P 14 #### [facility] [address] [place] [address] Comprehensive Panelon 2018 ALP [Catalytic activity/Vol] 74 U/L Normal 45-117 [facility] Comment on above: Performed By: #### C BCD1 #### [facility] [address] [place] [address] Bilirubin [Mass/Vol] 0.6 mg/dL Normal 0.2-1.0 [facility] Comment on above: Performed By: #### C BCD1 #### [facility] [address] [place] [address] Protein [Mass/Vol] 6.0 g/dL Low 6.4-8.2 [facility] Comment on above: Performed By: #### C BCD1 #### [place] [address] Creatinine [Mass/Vol] 0.61 mg/dL Normal 0.51-0.95 [facility] Comment on above: Performed By: #### C BCD1 #### [facility] [address] [place] [address] ALT [Catalytic activity/Vol] 50 U/L Normal 12-78 [facility] Comment on above: Performed By: #### C BCD1 #### [facility] [address] [place] [address] AST [Catalytic activity/Vol] 25 U/L Normal 15-37 [facility] Comment on above: Performed By: #### C BCD1 #### [facility] [address] [place] [address] Albumin [Mass/Vol] 3.3 g/dL Low 3.4-5.0 [facility] Comment on above: Performed By: #### C BCD1 #### [facility] [address] [place] [address] Anion gap [Moles/Vol] 6 mmol/L Low 8-16 [facility] Comment on above: Performed By: #### C BCD1 #### [facility] [address] [place], [place] [address] Calcium [Mass/Vol] 8.3 mg/dL Low 8.5-10.1 [facility] Comment on above: Performed By: #### C BCD1 #### [facility] [place], [place] [address] CO2 [Moles/Vol] 34 mmol/L High 21-32 [facility] Comment on above: Performed By: #### C BCD1 #### [facility] [place], [place] [address] Glucose [Mass/Vol] 119 mg/dL High 70-99 [facility] Comment on above: Performed By: #### C BCD1 #### [facility] [address] [place] [address] Urea nitrogen [Mass/Vol] 22 mg/dL High 7-18 [facility] Comment on above: Performed By: #### C BCD1 #### [facility] [place], [place] [address] Chloride [Moles/Vol] 100 mmol/L Normal 98-107 [facility] Comment on above: Performed By: #### C BCD1 #### [facility] [place], [place] [address] Potassium [Moles/Vol] 3.4 mmol/L Low 3.5-5.1 [facility] Comment on above: Performed By: #### C BCD1 #### [facility] [address] [place], [place] [address] Sodium [Moles/Vol] 137 mmol/L Normal 136-145 [facility] Comment on above: Performed By: #### C BCD1 #### [facility] [address] [place], [place] [address] Hemogram/Diffon 12-26-2018 Abs Immature Grans 0.03 thou/cmm Normal 0.00-0.05 [facility] Comment on above: Performed By: #### C BCD1 #### [address] [address] Abs Neut (ANC) 3.33 thou/cmm Normal 1.56-6.13 [facility] Comment on above: Performed By: #### C BCD1 #### [facility] [address] [place], [place] [address] Abs. Baso 0.02 thou/cmm Normal 0.01-0.08 [facility] Comment on above: Performed By: #### C BCD1 #### [facility] [address] [place] [address] Abs. [place] 0.98 thou/cmm High 0.27-0.70 [facility] Comment on above: Performed By: #### C BCD1 #### [facility] [address] [place] [address] Basophils/100 WBC (Bld) 0.3 % Normal [facility] Comment on above: Performed By: #### C BCD1 #### [place] [address] Eosinophils (Bld) [#/Vol] 0.03 thou/cmm Normal 0.00-0.31 [facility] Comment on above: Performed By: #### C BCD1 #### [address] [address] Eosinophils/100 WBC (Bld) 0.5 % Normal [facility] Comment on above: Performed By: #### C BCD1 #### [place] [address] Immature Grans 0.50 % Normal [facility] Comment on above: Performed By: #### C BCD1 #### [facility] [address] [place], [place] [address] Lymphocytes (Bld) [#/Vol] 1.58 thou/cmm Normal 1.18-3.74 [facility] Comment on above: Performed By: #### C BCD1 #### [facility] [address] [place], [place] [address] Lymphocytes/100 WBC (Bld) 26.5 % Normal [facility] Comment on above: Performed By: #### C BCD1 #### [facility] [address] [place] [address] Monocytes/100 WBC (Bld) 16.4 % Normal [facility] Comment on above: Performed By: #### C BCD1 #### [facility] [address] [place] [address] Seg Neutrophil 55.8 % Normal [facility] Comment on above: Performed By: #### C BCD1 #### [facility] [address] [place] [address] Erythrocyte distribution width (RBC) [Ratio] 13.3 % Normal 11.7-14.4 [facility] Comment on above: Performed By: #### C BCD1 #### [facility] [address] [place] [address] Hematocrit (Bld) [Volume fraction] 38.5 % Normal 34.1-44.9 [facility] Comment on above: Performed By: #### C BCD1 #### [facility] [address] [place] [address] Hemoglobin (Bld) [Mass/Vol] 12.3 g/dL Normal 11.2-15.7 [facility] Comment on above: Performed By: #### C BCD1 #### [facility] [address] [place] [address] MCH (RBC) [Entitic mass] 31.0 pg Normal 25.6-32.2 [facility] Comment on above: Performed By: #### C BCD1 #### [facility] [address] [place] [address] MCHC (RBC) [Mass/Vol] 31.9 % Normal 31.6-34.8 [facility] Comment on above: Performed By: #### C BCD1 #### [facility] [address] [place] [address] MCV (RBC) [Entitic vol] 97.0 fL High 79.4-94.8 [facility] Comment on above: Performed By: #### C BCD1 #### [facility] [address] [place] [address] Platelet mean volume (Bld) [Entitic vol] 9.6 fL Normal 9.4-12.3 [facility] Comment on above: Performed By: #### C BCD1 #### [facility] [address] [place], [place] [address] Platelets (Bld) [#/Vol] 216 thou/cmm Normal 182-369 [facility] Comment on above: Performed By: #### C BCD1 #### [facility] [address] [place], [place] [address] RBC (Bld) [#/Vol] 3.97 mil/cmm Normal 3.93-5.22 [facility] Comment on above: Performed By: #### C BCD1 #### [facility] [address] [place] [address] RDW SD 48.0 fl High 36.4-46.3 [facility] Comment on above: Performed By: #### C BCD1 #### [facility] [address] [place] [address] WBC (Bld) [#/Vol] 5.97 thou/cmm Normal 3.98-10.04 [facility] Comment on above: Performed By: #### C BCD1 #### [facility] [address] [place] [address] Comprehensive Panelon 2018 ALP [Catalytic activity/Vol] 68 U/L Normal 45-117 [facility] Comment on above: Performed By: #### C BCD1 #### [facility] [address] [place] [address] Protein [Mass/Vol] 6.4 g/dL Normal 6.4-8.2 [facility] Comment on above: Performed By: #### C BCD1 #### [facility] [address] [place], [place] [address] ALT [Catalytic activity/Vol] 47 U/L Normal 12-78 [facility] Comment on above: Performed By: #### C BCD1 #### [facility] [address] [place] [address] Bilirubin [Mass/Vol] 0.5 mg/dL Normal 0.2-1.0 [facility] Comment on above: Performed By: #### C BCD1 #### [facility] [address] [place], [place] [address] Creatinine [Mass/Vol] 0.51 mg/dL Normal 0.51-0.95 [facility] Comment on above: Performed By: #### C BCD1 #### [facility] [address] [place], [place] [address] AST [Catalytic activity/Vol] 36 U/L Normal 15-37 [facility] Comment on above: Performed By: #### C BCD1 #### [facility] [address] [place], [place] [address] Albumin [Mass/Vol] 3.3 g/dL Low 3.4-5.0 [facility] Comment on above: Performed By: #### C BCD1 #### [facility] [address] [place], [place] [address] Anion gap [Moles/Vol] 8 mmol/L Normal 8-16 [facility] Comment on above: Performed By: #### C BCD1 #### [facility] [address] [place], [place] [address] CO2 [Moles/Vol] 30 mmol/L Normal 21-32 [facility] Comment on above: Performed By: #### C BCD1 #### [facility] [address] [place], [place] [address] Glucose [Mass/Vol] 153 mg/dL High 70-99 [facility] Comment on above: Performed By: #### C BCD1 #### [facility] [address] [place], [place] [address] Urea nitrogen [Mass/Vol] 24 mg/dL High 7-18 [facility] Comment on above: Performed By: #### C BCD1 #### [facility] [address] [place], [place] [address] Calcium [Mass/Vol] 8.5 mg/dL Normal 8.5-10.1 [facility] Comment on above: Performed By: #### C BCD1 #### [facility] [address] [place], [place] [address] Chloride [Moles/Vol] 102 mmol/L Normal 98-107 [facility] Comment on above: Performed By: #### C BCD1 #### [facility] [address] [place], [place] [address] Potassium [Moles/Vol] 4.1 mmol/L Normal 3.5-5.1 [facility] Comment on above: Performed By: #### C BCD1 #### [facility] [address] [place], [place] [address] Sodium [Moles/Vol] 136 mmol/L Normal 136-145 [facility] Comment on above: Performed By: #### C BCD1 #### [facility] [address] [place] [address] Hemogram/Diffon 12-25-2018 Abs Immature Grans 0.04 thou/cmm Normal 0.00-0.05 [facility] Comment on above: Performed By: #### C BCD1 #### [facility] [address] [place] [address] Abs Neut (ANC) 7.70 thou/cmm High 1.56-6.13 [facility] Comment on above: Performed By: #### C BCD1 #### [facility] [address] [place] [address] Abs. Baso 0.02 thou/cmm Normal 0.01-0.08 [facility] Comment on above: Performed By: #### C BCD1 #### [facility] [address] [place] [address] Abs. [place] 1.35 thou/cmm High 0.27-0.70 [facility] Comment on above: Performed By: #### C BCD1 #### [facility] [address] [place], [place] [address] Basophils/100 WBC (Bld) 0.2 % Normal [facility] Comment on above: Performed By: #### C BCD1 #### [facility] [address] [place], [place] [address] Eosinophils (Bld) [#/Vol] 0.01 thou/cmm Normal 0.00-0.31 [facility] Comment on above: Performed By: #### C BCD1 #### [facility] [address] [place] [id number] Eosinophils/100 WBC (Bld) 0.1 % Normal [facility] Comment on above: Performed By: #### C BCD1 #### [facility] [address] [place] [address] Erythrocyte distribution width (RBC) [Ratio] 13.5 % Normal 11.7-14.4 [facility] Comment on above: Performed By: #### C BCD1 #### [facility] [address] [place] [address] Hematocrit (Bld) [Volume fraction] 37.9 % Normal 34.1-44.9 [facility] Comment on above: Performed By: #### C BCD1 #### [facility] [address] [place] [address] Hemoglobin (Bld) [Mass/Vol] 12.2 g/dL Normal 11.2-15.7 [facility] Comment on above: Performed By: #### C BCD1 #### [place] [address] Immature Grans 0.40 % Normal [facility] Comment on above: Performed By: #### C BCD1 #### [facility] [address] [place] [address] Lymphocytes (Bld) [#/Vol] 0.81 thou/cmm Low 1.18-3.74 [facility] Comment on above: Performed By: #### C BCD1 #### [place] [address] Lymphocytes/100 WBC (Bld) 8.2 % Normal [facility] Comment on above: Performed By: #### C BCD1 #### [facility] [address] [place] [address] MCH (RBC) [Entitic mass] 31.3 pg Normal 25.6-32.2 [facility] Comment on above: Performed By: #### C BCD1 #### [facility] [address] [place] [address] MCHC (RBC) [Mass/Vol] 32.2 % Normal 31.6-34.8 [facility] Comment on above: Performed By: #### C BCD1 #### [facility] [address] [place] [address] MCV (RBC) [Entitic vol] 97.2 fL High 79.4-94.8 [facility] Comment on above: Performed By: #### C BCD1 #### [facility] [address] [place] [address] Monocytes/100 WBC (Bld) 13.6 % Normal [facility] Comment on above: Performed By: #### C BCD1 #### [facility] [address] [place] [address] Platelet mean volume (Bld) [Entitic vol] 9.9 fL Normal 9.4-12.3 [facility] Comment on above: Performed By: #### C BCD1 #### [facility] [address] [place] [address] Platelets (Bld) [#/Vol] 239 thou/cmm Normal 182-369 [facility] Comment on above: Performed By: #### C BCD1 #### [facility] [address] [place] [address] RBC (Bld) [#/Vol] 3.90 mil/cmm Low 3.93-5.22 [facility] Comment on above: Performed By: #### C BCD1 #### [facility] [address] [place] [address] RDW SD 48.2 fl High 36.4-46.3 [facility] Comment on above: Performed By: #### C BCD1 #### [facility] [address] [place] [address] Seg Neutrophil 77.5 % Normal [facility] Comment on above: Performed By: #### C BCD1 #### [facility] [address] [place] [address] WBC (Bld) [#/Vol] 9.93 thou/cmm Normal 3.98-10.04 [facility] Comment on above: Performed By: #### C BCD1 #### [facility] [address] [place] [address] Comprehensive Panelon 2018 ALP [Catalytic activity/Vol] 71 U/L Normal 45-117 [facility] Comment on above: Performed By: #### C BCD1 #### [facility] [address] [place], [place] [address] Bilirubin [Mass/Vol] 0.4 mg/dL Normal 0.2-1.0 [facility] Comment on above: Performed By: #### C BCD1 #### [facility] [address] [place], [place] [address] Protein [Mass/Vol] 6.1 g/dL Low 6.4-8.2 [facility] Comment on above: Performed By: #### C BCD1 #### [facility] [address] [place], [place] [address] ALT [Catalytic activity/Vol] 40 U/L Normal 12-78 [facility] Comment on above: Performed By: #### C BCD1 #### [facility] [address] [place], [place] [address] AST [Catalytic activity/Vol] 28 U/L Normal 15-37 [facility] Comment on above: Performed By: #### C BCD1 #### [facility] [address] [place], [place] [address] Creatinine [Mass/Vol] 0.57 mg/dL Normal 0.51-0.95 [facility] Comment on above: Performed By: #### C BCD1 #### [facility] [address] [place], [place] [address] Glucose [Mass/Vol] 152 mg/dL High 70-99 [facility] Comment on above: Performed By: #### C BCD1 #### [facility] [address] [place], [place] [address] Albumin [Mass/Vol] 3.3 g/dL Low 3.4-5.0 [facility] Comment on above: Performed By: #### C BCD1 #### [facility] [address] [place], [place] [address] Anion gap [Moles/Vol] 8 mmol/L Normal 8-16 [facility] Comment on above: Performed By: #### C BCD1 #### [facility] [address] [place], [place] [address] Calcium [Mass/Vol] 8.0 mg/dL Low 8.5-10.1 [facility] Comment on above: Performed By: #### C BCD1 #### [facility] [address] [place] [address] CO2 [Moles/Vol] 30 mmol/L Normal 21-32 [facility] Comment on above: Performed By: #### C BCD1 #### [facility] [address] [place] [address] Urea nitrogen [Mass/Vol] 26 mg/dL High 7-18 [facility] Comment on above: Performed By: #### C BCD1 #### [facility] [address] [place] [address] Chloride [Moles/Vol] 104 mmol/L Normal 98-107 [facility] Comment on above: Performed By: #### C BCD1 #### [facility] [address] [place] [address] Potassium [Moles/Vol] 4.2 mmol/L Normal 3.5-5.1 [facility] Comment on above: Performed By: #### C BCD1 #### [facility] [address] [place] [address] Sodium [Moles/Vol] 138 mmol/L Normal 136-145 [facility] Comment on above: Performed By: #### C BCD1 #### [facility] [address] [place] [address] Hemogram/Diffon 12-24-2018 Abs Immature Grans 0.04 thou/cmm Normal 0.00-0.05 [facility] Comment on above: Performed By: #### C BCD1 #### [facility] [address] [place] [address] Abs Neut (ANC) 8.30 thou/cmm High 1.56-6.13 [facility] Comment on above: Performed By: #### C BCD1 #### [facility] [address] [place] [address] Abs. Baso 0.02 thou/cmm Normal 0.01-0.08 [facility] Comment on above: Performed By: #### C BCD1 #### [facility] [address] [place], [place] [address] Abs. [place] 1.01 thou/cmm High 0.27-0.70 [facility] Comment on above: Performed By: #### C BCD1 #### [facility] [address] [place] [address] Basophils/100 WBC (Bld) 0.2 % Normal [facility] Comment on above: Performed By: #### C BCD1 #### [facility] [address] [place] [address] Eosinophils (Bld) [#/Vol] 0.00 thou/cmm Normal 0.00-0.31 [facility] Comment on above: Performed By: #### C BCD1 #### [facility] [address] [place] [address] Eosinophils/100 WBC (Bld) 0.0 % Normal [facility] Comment on above: Performed By: #### C BCD1 #### [facility] [address] [place] [address] Erythrocyte distribution width (RBC) [Ratio] 13.3 % Normal 11.7-14.4 [facility] Comment on above: Performed By: #### C BCD1 #### [facility] [address] [place] [address] Hematocrit (Bld) [Volume fraction] 35.3 % Normal 34.1-44.9 [facility] Comment on above: Performed By: #### C BCD1 #### [facility] [address] [place] [address] Hemoglobin (Bld) [Mass/Vol] 11.3 g/dL Normal 11.2-15.7 [facility] Comment on above: Performed By: #### C BCD1 #### [facility] [address] [place] [address] Immature Grans 0.40 % Normal [facility] Comment on above: Performed By: #### C BCD1 #### [facility] [address] [place] [address] Lymphocytes (Bld) [#/Vol] 0.62 thou/cmm Low 1.18-3.74 [facility] Comment on above: Performed By: #### C BCD1 #### [facility] [address] [place], [place] [address] Lymphocytes/100 WBC (Bld) 6.2 % Normal [facility] Comment on above: Performed By: #### C BCD1 #### [facility] [address] [place], [place] [address] MCH (RBC) [Entitic mass] 31.0 pg Normal 25.6-32.2 [facility] Comment on above: Performed By: #### C BCD1 #### [facility] [address] [place], [place] [address] MCHC (RBC) [Mass/Vol] 32.0 % Normal 31.6-34.8 [facility] Comment on above: Performed By: #### C BCD1 #### [facility] [address] [place], [place] [address] MCV (RBC) [Entitic vol] 96.7 fL High 79.4-94.8 [facility] Comment on above: Performed By: #### C BCD1 #### [facility] [address] [place], [place] [address] Monocytes/100 WBC (Bld) 10.1 % Normal [facility] Comment on above: Performed By: #### C BCD1 #### [facility] [address] [place], [place] [address] Platelet mean volume (Bld) [Entitic vol] 9.8 fL Normal 9.4-12.3 [facility] Comment on above: Performed By: #### C BCD1 #### [facility] [address] [place], [place] [address] Platelets (Bld) [#/Vol] 231 thou/cmm Normal 182-369 [facility] Comment on above: Performed By: #### C BCD1 #### [facility] [address] [place], [place] [address] RBC (Bld) [#/Vol] 3.65 mil/cmm Low 3.93-5.22 [facility] Comment on above: Performed By: #### C BCD1 #### [facility] [address] [place] [address] RDW SD 47.7 fl High 36.4-46.3 [facility] Comment on above: Performed By: #### C BCD1 #### [facility] [address] [place] [address] Seg Neutrophil 83.1 % Normal [facility] Comment on above: Performed By: #### C BCD1 #### [facility] [address] [place] [address] WBC (Bld) [#/Vol] 9.99 thou/cmm Normal 3.98-10.04 [facility] Comment on above: Performed By: #### C BCD1 #### [facility] [address] [place] [address] Blood Gas Arterialon 12-23- 019 Base Excess 1.0 mmol/L Normal -3.0-3.0 [facility] Comment on above: Performed By: #### C BCD1 #### [facility] [address] [place] [address] HCO3 (Bld) [Moles/Vol] 27.0 mmol/L Normal 21.0-28.0 [facility] Comment on above: Performed By: #### C BCD1 #### [facility] [address] [place] [address] O2% Sat Arterial 93.9 % Low 96.0-100.0 [facility] Comment on above: Performed By: #### C BCD1 #### [facility] [address] [place] [address] PCO2 Arterial 50.1 mm Hg High 35.0-45.0 [facility] Comment on above: Performed By: #### C BCD1 #### [facility] [address] [place] [address] pH Arterial 7.347 Low 7.350-7.450 [facility] Comment on above: Performed By: #### C BCD1 #### [facility] [address] [place] [address] PO2 Arterial 71.9 mm Hg Low 83.0-108.0 [facility] Comment on above: Performed By: #### C BCD1 #### [facility] [address] [place] [address] FIO2 44 % Normal [facility] Comment on above: Performed By: #### C BCD1 #### [facility] [address] [place] [address] FIO2 50 % Normal [facility] Comment on above: Performed By: #### A BG #### [facility] [address] [place] [address] Base Excess 6.4 mmol/L High -3.0-3.0 [facility] Comment on above: Performed By: #### A BG #### [facility] [address] [place] [address] HCO3 (Bld) [Moles/Vol] 33.3 mmol/L High 21.0-28.0 [facility] Comment on above: Performed By: #### A BG #### [facility] [address] [place] [address] O2% Sat Arterial 94.5 % Low 96.0-100.0 [facility] Comment on above: Performed By: #### A BG #### [facility] [address] [place] [address] PCO2 Arterial 61.0 mm Hg High 35.0-45.0 [facility] Comment on above: Performed By: #### A BG #### [place] [address] pH Arterial 7.356 Normal 7.350-7.450 [facility] Comment on above: Performed By: #### A BG #### [facility] [address] [place] [address] PO2 Arterial 77.4 mm Hg Low 83.0-108.0 [facility] Comment on above: Performed By: #### A BG #### [facility] [address] [place] [address] Comprehensive Panelon 2018 ALP [Catalytic activity/Vol] 80 U/L Normal 45-117 [facility] Comment on above: Performed By: #### P 14 #### [facility] [address] [place], [place] [address] Bilirubin [Mass/Vol] 0.5 mg/dL Normal 0.2-1.0 [facility] Comment on above: Performed By: #### P 14 #### [facility] [address] [place], [place] [address] Creatinine [Mass/Vol] 0.52 mg/dL Normal 0.51-0.95 [facility] Comment on above: Performed By: #### P 14 #### [facility] [address] [place], [place] [address] Protein [Mass/Vol] 7.0 g/dL Normal 6.4-8.2 [facility] Comment on above: Performed By: #### P 14 #### [facility] [address] [place], [place] [address] ALT [Catalytic activity/Vol] 36 U/L Normal 12-78 [facility] Comment on above: Performed By: #### P 14 #### [facility] [address] [place], [place] [address] AST [Catalytic activity/Vol] 21 U/L Normal 15-37 [facility] Comment on above: Performed By: #### P 14 #### [facility] [address] [place], [place] [address] Albumin [Mass/Vol] 3.7 g/dL Normal 3.4-5.0 [facility] Comment on above: Performed By: #### P 14 #### [facility] [address] [place], [place] [address] Anion gap [Moles/Vol] 12 mmol/L Normal 8-16 [facility] Comment on above: Performed By: #### P 14 #### [facility] [address] [place], [place] [address] CO2 [Moles/Vol] 32 mmol/L Normal 21-32 [facility] Comment on above: Performed By: #### P 14 #### [facility] [address] [place], [place] [address] Calcium [Mass/Vol] 8.6 mg/dL Normal 8.5-10.1 [facility] Comment on above: Performed By: #### P 14 #### [facility] [address] [place] [address] Glucose [Mass/Vol] 128 mg/dL High 70-99 [facility] Comment on above: Performed By: #### P 14 #### [facility] [address] [place] [address] Urea nitrogen [Mass/Vol] 24 mg/dL High 7-18 [facility] Comment on above: Performed By: #### P 14 #### [facility] [address] [place] [address] Chloride [Moles/Vol] 100 mmol/L Normal 98-107 [facility] Comment on above: Performed By: #### P 14 #### [facility] [address] [place] [address] Potassium [Moles/Vol] 3.5 mmol/L Normal 3.5-5.1 [facility] Comment on above: Performed By: #### P 14 #### [facility] [address] [place] [address] Sodium [Moles/Vol] 140 mmol/L Normal 136-145 [facility] Comment on above: Performed By: #### P 14 #### [facility] [address] [place] [address] Hemogram/Diffon 12-23-2018 Abs Immature Grans 0.01 thou/cmm Normal 0.00-0.05 [facility] Comment on above: Performed By: #### C BCD1 #### [facility] [address] [place] [address] Abs Neut (ANC) 4.93 thou/cmm Normal 1.56-6.13 [facility] Comment on above: Performed By: #### C BCD1 #### [place] [address] Abs. Baso 0.07 thou/cmm Normal 0.01-0.08 [facility] Comment on above: Performed By: #### C BCD1 #### [place] [address] Abs. [place] 0.98 thou/cmm High 0.27-0.70 [facility] Comment on above: Performed By: #### C BCD1 #### [facility] [address] [place], [place] [address] Basophils/100 WBC (Bld) 0.9 % Normal [facility] Comment on above: Performed By: #### C BCD1 #### [facility] [address] [place], [place] [address] Eosinophils (Bld) [#/Vol] 0.13 thou/cmm Normal 0.00-0.31 [facility] Comment on above: Performed By: #### C BCD1 #### [facility] [address] [place], [place] [address] Eosinophils/100 WBC (Bld) 1.7 % Normal [facility] Comment on above: Performed By: #### C BCD1 #### [facility] [address] [place], [place] [address] Erythrocyte distribution width (RBC) [Ratio] 13.1 % Normal 11.7-14.4 [facility] Comment on above: Performed By: #### C BCD1 #### [facility] [address] [place], [place] [address] Hematocrit (Bld) [Volume fraction] 40.0 % Normal 34.1-44.9 [facility] Comment on above: Performed By: #### C BCD1 #### [facility] [address] [place], [place] [address] Hemoglobin (Bld) [Mass/Vol] 13.1 g/dL Normal 11.2-15.7 [facility] Comment on above: Performed By: #### C BCD1 #### [facility] [address] [place], [place] [address] Immature Grans 0.10 % Normal [facility] Comment on above: Performed By: #### C BCD1 #### [facility] [address] [place], [place] [address] Lymphocytes (Bld) [#/Vol] 1.53 thou/cmm Normal 1.18-3.74 [facility] Comment on above: Performed By: #### C BCD1 #### [facility] [address] [place], [place] [address] Lymphocytes/100 WBC (Bld) 20.0 % Normal [facility] Comment on above: Performed By: #### C BCD1 #### [facility] [address] [place], [place] [address] MCH (RBC) [Entitic mass] 31.3 pg Normal 25.6-32.2 [facility] Comment on above: Performed By: #### C BCD1 #### [facility] [address] [place], [place] [address] MCHC (RBC) [Mass/Vol] 32.8 % Normal 31.6-34.8 [facility] Comment on above: Performed By: #### C BCD1 #### [facility] [address] [place] [address] MCV (RBC) [Entitic vol] 95.5 fL High 79.4-94.8 [facility] Comment on above: Performed By: #### C BCD1 #### [facility] [address] [place] [address] Monocytes/100 WBC (Bld) 12.8 % Normal [facility] Comment on above: Performed By: #### C BCD1 #### [facility] [address] [place] [address] Platelet mean volume (Bld) [Entitic vol] 9.5 fL Normal 9.4-12.3 [facility] Comment on above: Performed By: #### C BCD1 #### [facility] [address] [place] [address] Platelets (Bld) [#/Vol] 255 thou/cmm Normal 182-369 [facility] Comment on above: Performed By: #### C BCD1 #### [facility] [address] [place], [place] [address] RBC (Bld) [#/Vol] 4.19 mil/cmm Normal 3.93-5.22 [facility] Comment on above: Performed By: #### C BCD1 #### [facility] [address] [place] [address] RDW SD 46.3 fl Normal 36.4-46.3 [facility] Comment on above: Performed By: #### C BCD1 #### [facility] [address] [place] [address] Seg Neutrophil 64.5 % Normal [facility] Comment on above: Performed By: #### C BCD1 #### [facility] [address] [place] [address] WBC (Bld) [#/Vol] 7.65 thou/cmm Normal 3.98-10.04 [facility] Comment on above: Performed By: #### C BCD1 #### [facility] [address] [place] [address] Hgb A1con 12-23-2018 HbA1c (Bld) [Mass fraction] 163 mg/dl Normal [facility] Comment on above: Performed By: #### H A1C #### [facility] [address] [place] [address] HbA1c (Bld) [Mass fraction] 7.3 % High 4.2-6.3 [facility] Comment on above: Result Comment: Meth od is National Glycohemoglobin Standardization Program (NGSP) compliant. Performed By: #### H A1C #### [facility] [address] [place] [address] Lactic Acidon 12-23-2018 Lactate [Moles/Vol] 1.5 mmol/L Normal 0.4-2.0 [facility] Comment on above: Performed By: #### L AC #### [facility] [address] [place] [address] MRSA Screenon 12-23-2018 MRSA DNA MONCHO+probe Ql (Unsp spec) Test performed at [facility] No MRSA detected. Normal [facility] Comment on above: Performed By: #### C BCD1 #### [facility] [address] [place] [address] Magnesium Bloodon 12-23-2018 Magnesium [Mass/Vol] 2.2 mg/dL Normal 1.6-2.6 [facility] Comment on above: Performed By: #### C BCD1 #### [facility] [address] [place] [address] Magnesium [Mass/Vol] 1.8 mg/dL Normal 1.6-2.6 [facility] Comment on above: Performed By: #### M AG #### [facility] [address] [place] [address] N-terminal Pro-BNPon 019 Natriuretic peptide B (Bld) [Mass/Vol] 22 pg/mL Normal [facility] Comment on above: Result Comment: Note new reference range: Normal Reference Range: Patients <75 yrs old <125pg/ml Patients >=75 yrs old <450 pg/ml Performed By: #### P BNP #### [facility] [address] [place], [place] [address] Phosphorus Bloodon 9 Phosphate [Mass/Vol] 3.0 mg/dL Normal 2.5-4.9 [facility] Comment on above: Performed By: #### P HOS #### [facility] [address] [place] [address] Potassium Bloodon 12-23-2018 Potassium [Moles/Vol] 4.2 mmol/L Normal 3.5-5.1 [facility] Comment on above: Performed By: #### C BCD1 #### [facility] [address] [place], [place] [address] Bacteria identified Anaer cx Nom (Unsp spec) Anaerobic microbial culture No anaerobic bacteria isolated. [facility] Work Phone: Bacteria identified Cx Nom ( Wound) Wound Culture Staphylococcus epidermidis [facility] Work Phone: Gram stain for investigation of transfusion reaction Microscopic observation Gram stain Nom (Unsp spec) [facility] Work Phone: Vital Signs Date Time Vital Sign Value Performing Clinician Facility 09-07-2024 14:28-0400 Body mass index (BMI) [Ratio] 29.7 kg/m2 Jalyn Smith MD Work Phone: [facility] 09-07-2024 14:28-040 Body weight 78.47 kg Jalyn Smith MD Work Phone: [facility] 09-07-2024 14:28-040 Diastolic blood pressure 62 mm[Hg] Jalyn Smith MD Work Phone: [facility] 09-07-2024 14:28-0400 Heart rate 71 /min Jalyn Smith MD Work Phone: [facility] 09-07-2024 14:28-0400 SaO2% (BldA) [Mass fraction] 93 % Jalyn Smith MD Work Phone: [facility] 09-07-2024 14:28-0400 Systolic blood pressure 110 mm[Hg] Jalyn Smith MD Work Phone: [facility] 09-04-2024 11:56-0400 Body temperature 97.5 [degF] Dr. Jalyn Smith MD Work Phone: [facility] 09-04-2024 11:56-0400 Diastolic blood pressure 87 mm[Hg] Dr. Jalyn Smith MD Work Phone: 2(427)687-887532 [address] 09-04-2024 11:56-0400 Heart rate 84 /min Dr. Jalyn Smith MD Work Phone: [facility] 09-04-2024 11:56-0400 Respiratory rate 16 /min Dr. Jalyn Smith MD Work Phone: [facility] 09-04-2024 11:56-0400 SaO2% (BldA) [Mass fraction] 99 % Dr. Jalyn Smith MD Work Phone: [facility] 09-04-2024 11:56-0400 Systolic blood pressure 118 mm[Hg] Dr. Jalyn Smith MD Work Phone: [facility] 09-04-2024 07:04-0400 Body height 157.[address] Jalyn Smith MD Work Phone: [facility] 09-04-2024 07:04-0400 Body mass index (BMI) [Ratio] 32.3 kg/m2 Dr. Jalyn Smith MD Work Phone: [facility] 09-04-2024 07:04-0400 Body weight 80.[address] Jalyn Smith MD Work Phone: [facility] 03-30-2025 07:04-0400 Inhaled oxygen flow rate 3 L/min Dr. Jalyn Smith MD Work Phone: [facility] 03-09-2024 15:10-0400 Body mass index (BMI) [Ratio] 30.55 kg/m2 Jalyn Smith MD Work Phone: [facility] 03-09-2024 15:10-0400 Body weight 80.74 kg Jalyn Smith MD Work Phone: [facility] 03-09-2024 15:10-0400 Diastolic blood pressure 70 mm[Hg] Jalyn Smith MD Work Phone: [facility] 03-09-2024 15:10-0400 Heart rate 77 /min Jalyn Smith MD Work Phone: [facility] 03-09-2024 15:10-0400 SaO2% (BldA) [Mass fraction] 99 % Jalyn Smith MD Work Phone: [facility] 03-09-2024 15:10-0400 Systolic blood pressure 118 mm[Hg] Jalyn Smith MD Work Phone: [facility] 01-06-2024 11:06-0400 Diastolic blood pressure 76 mm[Hg] Juhi Constance PA-C Work Phone: [facility] 01-06-2024 11:06-0400 Heart rate 62 /min Juhi Constance PA-C Work Phone: [facility] 01-06-2024 11:06-0400 Respiratory rate 17 /min Juhi Constance PA-C Work Phone: [facility] 01-06-2024 11:06-0400 SaO2% (BldA) [Mass fraction] 95 % Juhi Constance PA-C Work Phone: [facility] 01-06-2024 11:06-0400 Systolic blood pressure 132 mm[Hg] Juhi Constance PA-C Work Phone: [facility] 11-05-2023 10:47-0400 Diastolic blood pressure 72 mm[Hg] Yaniv Todd MD Work Phone: [facility] 11-05-2023 10:47-0400 Heart rate 64 /min Yaniv Todd MD Work Phone: [facility] 11-05-2023 10:47-0400 SaO2% (BldA) [Mass fraction] 96 % Yaniv Todd MD Work Phone: [facility] Comment on above: 2L 11-05-2023 10:47-0400 Systolic blood pressure 115 mm[Hg] Yaniv Todd MD Work Phone: [facility] 09-30-2023 11:52-0400 Body mass index (BMI) [Ratio] 32.1 kg/m2 Pulm Wstr Work Phone: [facility] 09-30-2023 11:52-0400 Body weight 84.82 kg Pulm Wstr Work Phone: [facility] 09-30-2023 11:52-0400 Heart rate 94 /min Pulm Wstr Work Phone: [facility] 09-30-2023 11:52-0400 SaO2% (BldA) [Mass fraction] 94 % [facility] Work Phone: [facility] Comment on above: 2L [facility] 09-30-2023 11:27-0400 Body mass index (BMI) [Ratio] 32.1 kg/m2 Juhi Constance PA-C Work Phone: [facility] 09-30-2023 11:27-0400 Body weight 84.82 kg Juhi Constance PA-C Work Phone: [facility] 09-30-2023 11:27-0400 Diastolic blood pressure 76 mm[Hg] Juhi Constance PA-C Work Phone: [facility] 09-30-2023 11:27-0400 Heart rate 94 /min Juhi Constance PA-C Work Phone: [facility] 09-30-2023 11:27-0400 Respiratory rate 16 /min Juhi Consatnce PA-C Work Phone: [facility] 09-30-2023 11:27-0400 SaO2% (BldA) [Mass fraction] 94 % Juhi BABCOCK-Yudith Work Phone: [facility] Comment on above: 2L O2 [place] 09-30-2023 11:27-0400 Systolic blood pressure 128 mm[Hg] Juhi Nolasco PA-C Work Phone: [facility] 09-21-2023 14:52-0400 Body height 162.6 cm Yaniv Todd MD Work Phone: [facility] 09-21-2023 14:52-0400 Body weight 85.73 kg Yaniv Todd MD Work Phone: [facility] 09-21-2023 14:52-0400 Diastolic blood pressure 80 mm[Hg] Yaniv Todd MD Work Phone: [facility] 09-21-2023 14:52-0400 Heart rate 93 /min Yaniv Todd MD Work Phone: [facility] 09-21-2023 14:52-0400 SaO2% (BldA) [Mass fraction] 96 % Yaniv Todd MD Work Phone: [facility] 09-21-2023 14:52-0400 Systolic blood pressure 128 mm[Hg] Yaniv Todd MD Work Phone: [facility] 09-08-2023 14:03-0400 Body height 162.6 cm Jalyn Smith MD Work Phone: [facility] 09-08-2023 14:03-0400 Body weight 86.18 kg Jalyn Smith MD Work Phone: [facility] 09-08-2023 14:03-0400 Diastolic blood pressure 54 mm[Hg] Jalyn Smith MD Work Phone: [facility] 09-08-2023 14:03-0400 Heart rate 70 /min Jalyn Smith MD Work Phone: [facility] 09-08-2023 14:03-0400 SaO2% (BldA) [Mass fraction] 94 % Jalyn Smith MD Work Phone: [facility] 09-08-2023 14:03-0400 Systolic blood pressure 100 mm[Hg] Jalyn Smith MD Work Phone: [facility] 08-28-2023 17:48-0400 Body temperature 97.6 [degF] [facility] 08-28-2023 17:48-0400 Diastolic blood pressure 79 mm[Hg] [facility] 08-28-2023 17:48-0400 Heart rate 65 /min [facility] 08-28-2023 17:48-0400 Respiratory rate 18 /min [facility] 08-28-2023 17:48-0400 SaO2% (BldA) [Mass fraction] 95 % [facility] 08-28-2023 17:48-0400 Systolic blood pressure 115 mm[Hg] [facility] 08-28-2023 16:20-0400 Inhaled oxygen flow rate 3 L/min [facility] 08-28-2023 14:15-0400 Body height 157.48 cm [facility] 07-24-2023 10:44-0500 SaO2% (BldA) [Mass fraction] 98 % Zackery Mayfield MD Work Phone: [facility] 01-19-2023 13:57-0400 Diastolic blood pressure 68 mm[Hg] Juhi Constance PA-C Work Phone: [facility] 01-19-2023 13:57-0400 Heart rate 80 /min Juhi Constance PA-C Work Phone: [facility] 01-19-2023 13:57-0400 Respiratory rate 16 /min Juhi Constance PA-C Work Phone: [facility] 01-19-2023 13:57-0400 SaO2% (BldA) [Mass fraction] 93 % Juhi Constance PA-C Work Phone: [facility] 01-19-2023 13:57-0400 Systolic blood pressure 110 mm[Hg] Juhi Nolasco PA-C Work Phone: [facility] 01-12-2023 14:27-0400 Diastolic blood pressure 70 mm[Hg] Jalyn Smith MD Work Phone: [facility] 01-12-2023 14:27-0400 Systolic blood pressure 118 mm[Hg] Jalyn Smith MD Work Phone: [facility] 01-12-2023 13:50-0400 Body height 162.6 cm Jalyn Smith MD Work Phone: [facility] 01-12-2023 13:50-0400 Body weight 93.71 kg Jalyn Smith MD Work Phone: [facility] 01-12-2023 13:50-0400 Heart rate 73 /min Jalyn Smith MD Work Phone: [facility] 01-12-2023 13:50-0400 SaO2% (BldA) [Mass fraction] 97 % Jalyn Smith MD Work Phone: [facility] 01-09-2023 09:34-0400 Body mass index (BMI) [Ratio] 34.7 kg/m2 Dr. Jalyn Smith Work Phone: [facility] 01-09-2023 09:34-0400 Body temperature 96.6 [degF] Dr. Jalyn Smith Work Phone: [facility] 01-09-2023 09:34-0400 Diastolic blood pressure 79 mm[Hg] Dr. Jalyn Smith Work Phone: [facility] 01-09-2023 09:34-0400 Heart rate 79 /min Dr. Jalyn Smith Work Phone: [facility] 01-09-2023 09:34-0400 Respiratory rate 18 /min Dr. Jalyn Smith Work Phone: [facility] 01-09-2023 09:34-0400 Systolic blood pressure 132 mm[Hg] Dr. Jalyn Smith Work Phone: [facility] 01-02-2023 10:33-0400 Body temperature 98.1 [degF] Dr. Jalyn Smith Work Phone: 2(227)960-127569 [place] [address] 01-02-2023 10:33-0400 Diastolic blood pressure 73 mm[Hg] Dr. Jalyn Smith Work Phone: 4(680)407-703369 [place] [address] 01-02-2023 10:33-0400 Heart rate 72 /min Dr. Jalyn Smith Work Phone: 8(700)847-067969 [place] [address] 01-02-2023 10:33-0400 Inhaled oxygen flow rate 3 L/min Dr. Jalyn Smith Work Phone: 1(088)795-301869 [place] [address] 01-02-2023 10:33-0400 Respiratory rate 18 /min Dr. Jalyn Smith Work Phone: 2(226)112-727569 [place] [address] 01-02-2023 10:33-0400 SaO2% (BldA) [Mass fraction] 96 % Dr. Jalyn Smith Work Phone: 0(635)299-069669 [place] [address] 01-02-2023 10:33-0400 Systolic blood pressure 127 mm[Hg] Dr. Jalyn Smith Work Phone: 3(186)098-141669 [place] [address] 12-30-2022 12:13-0400 Body mass index (BMI) [Ratio] 37 kg/m2 Dr. Jalyn Smith Work Phone: 1(456)821-619169 [place] [address] 12-30-2022 12:13-0400 Body weight 91.[address] Jalyn Smith Work Phone: 2(886)135-570669 [place] [address] 12-28-2022 10:00-0400 Inhaled oxygen concentration 96 % Dr. Jalyn Smith Work Phone: 7(868)966-897869 [place] [address] 12-24-2022 12:35-0400 Body height 157.[address] Jalyn Smith Work Phone: 8(962)828-305169 [place] [address] 12-15-2022 14:33-0400 Body temperature 97.8 [degF] Dr. Jalyn Smith Work Phone: 2(255)656-248269 [place] [address] 12-15-2022 14:33-0400 Diastolic blood pressure 91 mm[Hg] Dr. Jalyn Smith Work Phone: [facility] 12-15-2022 14:33-0400 Heart rate 85 /min Dr. Jalyn Smith Work Phone: [facility] 12-15-2022 14:33-0400 Inhaled oxygen flow rate 3 L/min Dr. Jalyn Smith Work Phone: 7(849)819-124348 [place] [address] 12-15-2022 14:33-0400 Respiratory rate 18 /min Dr. Jalyn Smith Work Phone: 9(081)560-281148 [place] [address] 12-15-2022 14:33-0400 SaO2% (BldA) [Mass fraction] 95 % Dr. Jalyn Smith Work Phone: [facility] 12-15-2022 14:33-0400 Systolic blood pressure 151 mm[Hg] Dr. Jalyn Smith Work Phone: 5(877)896-706469 [place] [address] 12-10-2022 23:10-0400 Body height 157.[address] Jalyn Smith Work Phone: 7(541)850-419048 [place] [address] 12-10-2022 23:10-0400 Body mass index (BMI) [Ratio] 37.8 kg/m2 Dr. Jalyn Smith Work Phone: 2(660)847-304448 [place] [address] 12-10-2022 23:10-0400 Body weight 93.[address] Jalyn Smith Work Phone: [facility] 12-10-2022 23:04-0400 Body temperature 98 [degF] [facility] 12-10-2022 23:04-0400 Diastolic blood pressure 86 mm[Hg] [facility] 12-10-2022 23:04-0400 Heart rate 68 /min [facility] 12-10-2022 23:04-0400 Inhaled oxygen flow rate 3 L/min [facility] 12-10-2022 23:04-0400 Respiratory rate 18 /min [facility] 12-10-2022 23:04-0400 Systolic blood pressure 163 mm[Hg] [facility] 12-10-2022 20:50-0400 SaO2% (BldA) [Mass fraction] 94 % [facility] 12-10-2022 17:53-0400 Body mass index (BMI) [Ratio] 38 kg/m2 [facility] 12-10-2022 17:53-0400 Body weight 94.5 kg [facility] 12-10-2022 17:16-0400 Body height 157.48 cm [facility] 12-10-2022 16:17-0400 Body height 162.6 cm Jalyn Smith MD Work Phone: [facility] 12-10-2022 16:17-0400 Body weight 93.89 kg Jalyn Smith MD Work Phone: [facility] 12-10-2022 16:17-0400 Diastolic blood pressure 66 mm[Hg] Jalyn Smith MD Work Phone: [facility] 12-10-2022 16:17-0400 Heart rate 68 /min Jalyn Smith MD Work Phone: [facility] 12-10-2022 16:17-0400 SaO2% (BldA) [Mass fraction] 96 % Jalyn Smith MD Work Phone: [facility] 12-10-2022 16:17-0400 Systolic blood pressure 116 mm[Hg] Jalyn Smith MD Work Phone: [facility] 12-06-2022 01:18-0400 Body weight 91.[address] Jalyn Smith Work Phone: [facility] 12-06-2022 01:18-0400 Inhaled oxygen flow rate 2 L/min Dr. Jalyn Smith Work Phone: [facility] 12-05-2022 11:03-0400 Body mass index (BMI) [Ratio] 34.7 kg/m2 [facility] 12-05-2022 11:03-0400 Body temperature 97.6 [degF] [facility] 12-05-2022 11:03-0400 Diastolic blood pressure 56 mm[Hg] [facility] 12-05-2022 11:03-0400 Heart rate 86 /min [facility] 12-05-2022 11:03-0400 Systolic blood pressure 100 mm[Hg] [facility] 11-21-2022 09:11-0400 Respiratory rate 18 /min [facility] 11-07-2022 09:25-0400 Inhaled oxygen flow rate 2 L/min [facility] 11-06-2022 00:33-0400 Body weight 91.77 kg [facility] 10-24-2022 09:16-0400 Body mass index (BMI) [Ratio] 34.7 kg/m2 [facility] 10-24-2022 09:16-0400 Body temperature 97 [degF] [facility] 10-24-2022 09:16-0400 Diastolic blood pressure 71 mm[Hg] [facility] 10-24-2022 09:16-0400 Heart rate 60 /min [facility] 10-24-2022 09:16-0400 Respiratory rate 18 /min [facility] 10-24-2022 09:16-0400 Systolic blood pressure 166 mm[Hg] [facility] 10-17-2022 09:14-0400 Inhaled oxygen flow rate 3 L/min [facility] 10-06-2022 00:39-0400 Body weight 91.77 kg [facility] 10-03-2022 08:32-0400 Body mass index (BMI) [Ratio] 34.7 kg/m2 [facility] 10-03-2022 08:32-0400 Body temperature 96.6 [degF] [facility] 10-03-2022 08:32-0400 Diastolic blood pressure 73 mm[Hg] [facility] 10-03-2022 08:32-0400 Heart rate 71 /min [facility] 10-03-2022 08:32-0400 Respiratory rate 18 /min [facility] 10-03-2022 08:32-0400 Systolic blood pressure 124 mm[Hg] [facility] 10-01-2022 13:12-0400 Body weight 93.89 kg Jalyn Smith MD Work Phone: [facility] 10-01-2022 13:12-0400 Diastolic blood pressure 72 mm[Hg] Jalyn Smith MD Work Phone: [facility] 10-01-2022 13:12-0400 Heart rate 73 /min Jalyn Smith MD Work Phone: [facility] 10-01-2022 13:12-0400 SaO2% (BldA) [Mass fraction] 95 % Jalyn Smith MD Work Phone: [facility] 10-01-2022 13:12-0400 Systolic blood pressure 112 mm[Hg] Jalyn Smith MD Work Phone: [facility] 09-26-2022 08:51-0400 Inhaled oxygen flow rate 2 L/min [facility] 09-06-2022 01:59-0400 Body weight 91.77 kg [facility] 09-05-2022 09:13-0400 Body mass index (BMI) [Ratio] 34.7 kg/m2 [facility] 09-05-2022 09:13-0400 Body temperature 97.2 [degF] [facility] 09-05-2022 09:13-0400 Diastolic blood pressure 69 mm[Hg] [facility] 09-05-2022 09:13-0400 Heart rate 57 /min [facility] 09-05-2022 09:13-0400 Respiratory rate 20 /min [facility] 09-05-2022 09:13-0400 Systolic blood pressure 143 mm[Hg] [facility] 08-15-2022 08:39-0500 Inhaled oxygen flow rate 2 L/min [facility] 08-06-2022 00:35-0500 Body weight 91.77 kg [facility] 08-01-2022 09:18-0500 Body mass index (BMI) [Ratio] 34.7 kg/m2 [facility] 08-01-2022 09:18-0500 Body temperature 97 [degF] [facility] 08-01-2022 09:18-0500 Diastolic blood pressure 63 mm[Hg] [facility] 08-01-2022 09:18-0500 Heart rate 66 /min [facility] 08-01-2022 09:18-0500 Respiratory rate 20 /min [facility] 08-01-2022 09:18-0500 Systolic blood pressure 118 mm[Hg] [facility] 07-25-2022 09:08-0500 Body height 162.56 cm [facility] 07-25-2022 09:08-0500 Body weight 91.77 kg [facility] 07-17-2022 10:15-0500 Body weight 92.99 kg Jalyn Smith MD Work Phone: [facility] 07-17-2022 10:15-0500 Diastolic blood pressure 82 mm[Hg] Jalyn Smith MD Work Phone: [facility] 07-17-2022 10:15-0500 Heart rate 64 /min Jalyn Smith MD Work Phone: [facility] 07-17-2022 10:15-0500 SaO2% (BldA) [Mass fraction] 95 % Jalyn Smith MD Work Phone: [facility] 07-17-2022 10:15-0500 Systolic blood pressure 124 mm[Hg] Jalyn Smith MD Work Phone: [facility] 06-20-2022 09:39-0500 Body weight 91.63 kg Zackery Mayfield MD Work Phone: [facility] 06-20-2022 09:39-0500 SaO2% (BldA) [Mass fraction] 90 % Zackery Mayfield MD Work Phone: [facility] 03-20-2022 10:45-0400 Body height 162.6 cm Jalyn Smith MD Work Phone: [facility] 03-20-2022 10:45-0400 Body weight 94.8 kg Jalyn Smith MD Work Phone: [facility] 03-20-2022 10:45-0400 Diastolic blood pressure 68 mm[Hg] Jalyn Smith MD Work Phone: [facility] 03-20-2022 10:45-0400 Heart rate 59 /min Jalyn Smith MD Work Phone: [facility] 03-20-2022 10:45-0400 SaO2% (BldA) [Mass fraction] 95 % Jalyn Smith MD Work Phone: [facility] 03-20-2022 10:45-0400 Systolic blood pressure 108 mm[Hg] Jalyn Smith MD Work Phone: [facility] 02-07-2022 08:40-0400 Body mass index (BMI) [Ratio] 36.4 kg/m2 [facility] Work Phone: 02-07-2022 08:40-0400 Body temperature 97.3 [degF] [facility] Work Phone: 02-07-2022 08:40-0400 Diastolic blood pressure 82 mm[Hg] [facility] Work Phone: 02-07-2022 08:40-0400 Heart rate 72 /min [facility] Work Phone: 02-07-2022 08:40-0400 Systolic blood pressure 126 mm[Hg] [facility] Work Phone: 02-06-2022 00:31-0400 Body weight 96.33 kg [facility] Work Phone: 02-06-2022 00:31-0400 Inhaled oxygen flow rate 2 L/min [facility] Work Phone: 02-06-2022 00:31-0400 Respiratory rate 18 /min [facility] Work Phone: 01-24-2022 10:21-0400 Body mass index (BMI) [Ratio] 36.4 kg/m2 [facility] Work Phone: 01-24-2022 10:21-0400 Body temperature 96.2 [degF] [facility] Work Phone: 01-24-2022 10:21-0400 Diastolic blood pressure 77 mm[Hg] [facility] Work Phone: 01-24-2022 10:21-0400 Heart rate 69 /min [facility] Work Phone: 01-24-2022 10:21-0400 Systolic blood pressure 126 mm[Hg] [facility] Work Phone: 01-06-2022 00:29-0400 Body weight 96.33 kg [facility] Work Phone: 01-06-2022 00:29-0400 Inhaled oxygen flow rate 2 L/min [facility] Work Phone: 01-06-2022 00:29-0400 Respiratory rate 18 /min [facility] Work Phone: 01-03-2022 08:39-0400 Body mass index (BMI) [Ratio] 36.4 kg/m2 Dr. Jalyn Smith Work Phone: [facility] Work Phone: 01-03-2022 08:39-0400 Body temperature 97.3 [degF] Dr. Jalyn Smith Work Phone: [facility] Work Phone: 01-03-2022 08:39-0400 Diastolic blood pressure 55 mm[Hg] Dr. Jalyn Smith Work Phone: [facility] Work Phone: 01-03-2022 08:39-0400 Heart rate 68 /min Dr. Jalyn Smith Work Phone: [facility] Work Phone: 01-03-2022 08:39-0400 Respiratory rate 18 /min Dr. Jalyn Smith Work Phone: [facility] Work Phone: 01-03-2022 08:39-0400 Systolic blood pressure 119 mm[Hg] Dr. Jalyn Smith Work Phone: [facility] Work Phone: 12-06-2021 00:38-0400 Body weight 96.[address] Jalyn Smith Work Phone: [facility] Work Phone: 12-06-2021 00:38-0400 Inhaled oxygen flow rate 2 L/min Dr. Jalyn Smith Work Phone: [facility] Work Phone: 11-29-2021 08:57-0400 Body mass index (BMI) [Ratio] 36.4 kg/m2 Dr. Jalyn Smith Work Phone: [facility] Work Phone: 11-29-2021 08:57-0400 Body temperature 99.6 [degF] Dr. Jalyn Smith Work Phone: [facility] Work Phone: 11-29-2021 08:57-0400 Diastolic blood pressure 80 mm[Hg] Dr. Jalyn Smith Work Phone: [facility] Work Phone: 11-29-2021 08:57-0400 Heart rate 81 /min Dr. Jalyn Smith Work Phone: [facility] Work Phone: 11-29-2021 08:57-0400 Respiratory rate 18 /min Dr. Jalyn Smith Work Phone: [facility] Work Phone: 11-29-2021 08:57-0400 Systolic blood pressure 144 mm[Hg] Dr. Jalyn Smith Work Phone: [facility] Work Phone: 11-06-2021 01:06-0400 Body weight 96.[address] Jalyn Smith Work Phone: [facility] Work Phone: 11-06-2021 01:06-0400 Inhaled oxygen flow rate 2 L/min Dr. Jalyn Smith Work Phone: [facility] Work Phone: 11-05-2021 08:26-0400 Body mass index (BMI) [Ratio] 36.4 kg/m2 Dr. Jalyn Smith Work Phone: [facility] Work Phone: 11-05-2021 08:26-0400 Diastolic blood pressure 98 mm[Hg] Dr. Jalyn Smith Work Phone: [facility] Work Phone: 11-05-2021 08:26-0400 Heart rate 76 /min Dr. Jalyn Smith Work Phone: [facility] Work Phone: 11-05-2021 08:26-0400 Systolic blood pressure 148 mm[Hg] Dr. Jalyn Smith Work Phone: [facility] Work Phone: 10-31-2021 12:57-0400 Body temperature 98.3 [degF] Dr. Jalyn Smith Work Phone: [facility] Work Phone: 10-31-2021 12:57-0400 Respiratory rate 20 /min Dr. Jalyn Smith Work Phone: [facility] Work Phone: 10-18-2021 08:55-0400 Inhaled oxygen flow rate 2 L/min Dr. Jalyn Smith Work Phone: [facility] Work Phone: 10-06-2021 00:48-0400 Body weight 96.[address] Jalyn Smith Work Phone: [facility] Work Phone: 10-04-2021 10:43-0400 Body mass index (BMI) [Ratio] 36.4 kg/m2 Dr. Jalyn Smith Work Phone: [facility] Work Phone: 10-04-2021 10:43-0400 Body temperature 97 [degF] Dr. Jalyn Smith Work Phone: [facility] Work Phone: 10-04-2021 10:43-0400 Diastolic blood pressure 71 mm[Hg] Dr. Jalyn Smith Work Phone: [facility] Work Phone: 10-04-2021 10:43-0400 Heart rate 70 /min Dr. Jalyn Smith Work Phone: [facility] Work Phone: 10-04-2021 10:43-0400 Respiratory rate 18 /min Dr. Jalyn Smith Work Phone: [facility] Work Phone: 10-04-2021 10:43-0400 Systolic blood pressure 160 mm[Hg] Dr. Jalyn Smith Work Phone: [facility] Work Phone: 09-26-2021 13:20-0400 Body height 162.[address] Jalyn Smith Work Phone: [facility] Work Phone: 09-26-2021 13:20-0400 Body weight 96.[address] Jalyn Smith Work Phone: [facility] Work Phone: 09-18-2021 16:24-0400 Body weight 97.07 kg Jalyn Smith MD Work Phone: [facility] 09-18-2021 16:24-0400 Diastolic blood pressure 62 mm[Hg] Jalyn Smith MD Work Phone: [facility] 09-18-2021 16:24-0400 Heart rate 74 /min Jalyn Smith MD Work Phone: [facility] 09-18-2021 16:24-0400 SaO2% (BldA) [Mass fraction] 98 % Jalyn Smith MD Work Phone: [facility] 09-18-2021 16:24-0400 Systolic blood pressure 122 mm[Hg] Jalyn Smith MD Work Phone: [facility] 09-13-2021 15:00-0400 Diastolic blood pressure 78 mm[Hg] MAN Rodríguez PA-C Work Phone: [facility] 09-13-2021 15:00-0400 Heart rate 88 /min NA Rodríguez PA-C Work Phone: [facility] 09-13-2021 15:00-0400 SaO2% (BldA) [Mass fraction] 100 % NA Rodríguez PA-C Work Phone: [facility] 09-13-2021 15:00-0400 Systolic blood pressure 132 mm[Hg] NA Rodríguez PA-C Work Phone: [facility] 08-30-2021 12:07-0400 Body mass index (BMI) [Ratio] 38.9 kg/m2 Dr. Jalyn Smith Work Phone: [facility] Work Phone: 08-30-2021 12:07-0400 Body temperature 96.8 [degF] Dr. Jalyn Smith Work Phone: [facility] Work Phone: 08-30-2021 12:07-0400 Body weight 96.[address] Jalyn Smith Work Phone: [facility] Work Phone: 08-30-2021 12:07-0400 Diastolic blood pressure 71 mm[Hg] Dr. Jalyn Smith Work Phone: [facility] Work Phone: 08-30-2021 12:07-0400 Heart rate 64 /min Dr. Jalyn Smith Work Phone: [facility] Work Phone: 08-30-2021 12:07-0400 Respiratory rate 17 /min Dr. Jalyn Smith Work Phone: [facility] Work Phone: 08-30-2021 12:07-0400 SaO2% (BldA) [Mass fraction] 100 % Dr. Jalyn Smith Work Phone: [facility] Work Phone: 08-30-2021 12:07-0400 Systolic blood pressure 158 mm[Hg] Dr. Jalyn Smith Work Phone: [facility] Work Phone: 08-09-2021 08:19-0500 Body temperature 98.4 [degF] Dr. Jalyn Smith Work Phone: [facility] Work Phone: 08-09-2021 08:19-0500 Diastolic blood pressure 60 mm[Hg] Dr. Jalyn Smith Work Phone: [facility] Work Phone: 08-09-2021 08:19-0500 Heart rate 83 /min Dr. Jalyn Smith Work Phone: [facility] Work Phone: 08-09-2021 08:19-0500 Respiratory rate 18 /min Dr. Jalyn Smith Work Phone: [facility] Work Phone: 08-09-2021 08:19-0500 SaO2% (BldA) [Mass fraction] 94 % Dr. Jalyn Smith Work Phone: [facility] Work Phone: 08-09-2021 08:19-0500 Systolic blood pressure 99 mm[Hg] Dr. Jalyn Smith Work Phone: [facility] Work Phone: 08-06-2021 10:40-0500 Body weight 95.[address] Jalyn Smith Work Phone: [facility] Work Phone: 08-03-2021 13:23-0500 Inhaled oxygen concentration 4 % Dr. Jalyn Smith Work Phone: [facility] Work Phone: 07-25-2021 20:02-0500 Body mass index (BMI) [Ratio] 36.3 kg/m2 Dr. Jalyn Smith Work Phone: [facility] Work Phone: 07-25-2021 17:49-0500 Heart rate 78 /min Dr. Jalyn Smith Work Phone: [facility] Work Phone: 07-25-2021 17:49-0500 Respiratory rate 18 /min Dr. Jalyn Smith Work Phone: [facility] Work Phone: 07-25-2021 16:56-0500 Body temperature 98.5 [degF] Dr. Jalyn Smith Work Phone: [facility] Work Phone: 07-25-2021 16:56-0500 Diastolic blood pressure 73 mm[Hg] Dr. Jalyn Smith Work Phone: [facility] Work Phone: 07-25-2021 16:56-0500 SaO2% (BldA) [Mass fraction] 94 % Dr. Jalyn Smith Work Phone: [facility] Work Phone: 07-25-2021 16:56-0500 Systolic blood pressure 120 mm[Hg] Dr. Jalyn Smith Work Phone: [facility] Work Phone: 07-25-2021 00:08-0500 Body mass index (BMI) [Ratio] 39.8 kg/m2 Dr. Jalyn Smith Work Phone: [facility] Work Phone: 07-25-2021 00:08-0500 Body weight 102.[address] Jalyn Smith Work Phone: [facility] Work Phone: 12-23-2018 16:15-0400 Body temperature 36.4 Deg [facility] Comment on above: Performed By: #### [id number] #### [place] [id number] 12-23-2018 05:49-0400 Body temperature 36.9 Deg [facility] Comment on above: Performed By: #### ABG #### [facility] [address] [place], [place] [address] Encounters Encounter Date Encounter Type Care Provider Facility Start: 03-22-2025 End: 03-22-2025 ambulatory JALYN Roshan LUIS Facility:[facility] Start: 03-22-2025 End: 03-22-2025 ambulatory JALYN Roshan LUIS Facility:[facility] Start: 03-22-2025 Patient encounter procedure JALYN SMITH [facility] Start: 03-08-2025 End: 03-08-2025 ambulatory ORAL PERDUE Facility:[facility] Start: 01-29-2025 End: 01-31-2025 Refill Ann Hutchinson MD Work Phone: Pulmonology Comment on above: Refill Request Start: 01-24-2025 End: 01-25-2025 Telephone encounter Jalyn Smith MD Work Phone: [facility] [place] Comment on above: Forms Start: 01-20-2025 End: 01-20-2025 ambulatory Jalyn Smith MD Work Phone: [facility] Start: 01-20-2025 End: 01-20-2025 Patient encounter procedure Jalyn Smith MD Work Phone: [facility] Comment on above: Population Health Na vigation Outreach (Ann Dotson ) Start: 01-13-2025 End: 01-16-2025 ambulatory Zackery Mayfield MD Work Phone: Pulmonary Medicine Comment on above: Oxygen equipment Start: 01-09-2025 End: 01-09-2025 Telephone encounter Jalyn Smith MD Work Phone: [facility] [place] Comment on above: Surgical Clearance Start: 01-08-2025 End: 01-09-2025 ambulatory Jalyn Smith MD Work Phone: [facility] Comment on above: Ferrous sulf Start: 12-21-2024 End: 12-21-2024 ambulatory Jalyn Smith MD Work Phone: [facility] Start: 12-21-2024 End: 12-21-2024 Patient encounter procedure Jalyn Smith MD Work Phone: [facility] [place] Comment on above: Population Health Na vigation Outreach ([facility] [place] ) Start: 12-15-2024 End: 12-15-2024 ambulatory Jalyn Smith MD Work Phone: [facility] Comment on above: UTI? 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] Start: 12-02-2024 End: 12-02-2024 ambulatory JALYN SMITH Facility:[facility] Start: 11-30-2024 End: 11-30-2024 ambulatory Zackery Mayfield MD Work Phone: Pulmonary Medicine Comment on above: Breztri Start: 11-28-2024 End: 11-29-2024 ambulatory Jalyn Smith MD Work Phone: [facility] Comment on above: Meds Start: 11-21-2024 End: 11-21-2024 ambulatory Jalyn Smith MD Work Phone: [facility] [place] Start: 11-21-2024 End: 11-21-2024 Patient encounter procedure Jalyn Smith MD Work Phone: [facility] [place] Comment on above: Population Health Na vigation Outreach (Ann Anurag Dotson ) Start: 11-10-2024 End: 11-10-2024 Orders Only Yaniv Todd MD Work Phone: Vascular Surgery Comment on above: 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) Start: 11-04-2024 End: 11-04-2024 ambulatory Jalyn Smith MD Work Phone: [facility] Comment on above: Ct Start: 11-01-2024 End: 11-01-2024 ambulatory Jalyn Smith MD Work Phone: [facility] Comment on above: New presciption Ct scan Start: 10-18-2024 End: 10-18-2024 ambulatory Jalyn Smith MD Work Phone: [facility] [place] Comment on above: Ropinirole Start: 10-10-2024 End: 10-10-2024 ambulatory Katherine Gómez RN [employer] [facility] [employer] [facility] Comment on above: Primary Care Coordin ator- Other Start: 10-05-2024 End: 10-05-2024 ambulatory Jalyn Smith MD Work Phone: [facility] Comment on above: Ropinirole Start: 10-03-2024 End: 10-03-2024 Refill Jalyn mSith MD Work Phone: [facility] [place] Comment on above: Refill Request Start: 09-30-2024 End: 10-03-2024 Refill Jalyn Smith MD Work Phone: [facility] [place] Comment on above: Refill Request Start: 09-20-2024 End: 09-21-2024 Refill Jalyn Smith MD Work Phone: [facility] Comment on above: Refill Request Start: 09-08-2024 End: 11-08-2024 Follow-up encounter Jalyn Smith MD Work Phone: Pulmonology [facility] Start: 09-07-2024 End: 09-07-2024 Patient encounter procedure Jalyn Smith MD Work Phone: Family [facility] Comment on above: Urinary tract infect ion without hematuria, site unspecified (Primary Dx); Essential hypertension; Type 2 diabetes mellitus without complication, without long-term current use of insulin (HCC); Acute constipation; Abdominal pain, unspecified abdominal location; Chronic respiratory failure with hypoxia (HCC) Start: 09-07-2024 End: 09-07-2024 ambulatory Jalyn Smith MD Work Phone: [facility] Comment on above: Cataract Start: 09-04-2024 End: 09-04-2024 Emergency department patient visit Dr. Jalyn Smith MD Work Phone: -Emergency Department Work Phone: Start: 2024 End: 2024 Telephone encounter Jalyn Smith MD Work Phone: [facility] Comment on above: Patient Question Start: 08-25-2024 End: 08-25-2024 ambulatory Jalyn Smith MD Work Phone: [facility] Start: 08-25-2024 End: 08-25-2024 Patient encounter procedure Jalyn Smith MD Work Phone: [facility] Comment on above: Population Health Na vigation Outreach ([employer] [facility] [place] ) Start: 08-03-2024 End: 08-03-2024 Get Medical Advice Jalyn Smith MD Work Phone: [facility] Comment on above: refills Refill Request Start: 08-02-2024 End: 08-02-[address] Jalyn Smith MD Work Phone: [facility] Work Phone: Start: 08-02-2024 End: 08-02-[address] Chin Paul MD -Laboratory Work Phone: Start: 08-02-2024 End: 08-02-2024 ambulatory Chin Veras:[facility] Start: 06-07-2024 End: 06-09-2024 Refill Jalyn Smith MD Work Phone: [facility] Comment on above: Refill Request Start: 05-16-2024 End: 05-17-2024 Refill Jalyn Smith MD Work Phone: [facility] Comment on above: Refill Request Start: 05-16-2024 End: 05-17-2024 Refill Juhi Nolasco PA-C Work Phone: Pulmonary Medicine Comment on above: Med Change Request Start: 05-13-2024 End: 05-16-2024 Admission to same day surgery center Jalyn Smith MD Work Phone: [facility] Comment on above: knee surgery Start: 05-13-2024 End: 05-16-2024 ambulatory Jalyn Smith MD Work Phone: [facility] Start: 04-28-2024 End: 04-28-2024 ambulatory Selene Anaya RN Work Phone: [facility] Comment on above: community monitoring (CDM telephonic/) Start: 04-14-2024 End: 04-14-2024 ambulatory Jalyn Smith MD Work Phone: [facility] Comment on above: magnesium Start: 04-14-2024 End: 04-14-2024 Telephone encounter Jalyn Smith MD Work Phone: [facility] Comment on above: Results Start: 04-13-2024 End: 04-13-2024 ambulatory JALYN SMITH Facility:[facility] Start: 04-10-2024 End: 04-11-2024 Refill Fay Leone APRN.CNP Work Phone: Pulmonology Comment on above: Refill Request Start: 03-31-2024 End: 03-31-2024 ambulatory Selene Anaya RN Work Phone: [facility] Comment on above: community monitoring (CDM telephonic/) Start: 03-29-2024 End: 03-29-2024 Telephone encounter Zackery Mayfield MD Work Phone: Pulmonary Medicine Start: 03-28-2024 End: 03-29-2024 ambulatory Juhi Nolasco PA-C Work Phone: Pulmonary Medicine Comment on above: oxygen tanks Start: 03-11-2024 End: 03-11-2024 Telephone encounter Jalyn Smith MD Work Phone: [facility] Comment on above: Results Start: 03-09-2024 End: 03-09-2024 Patient encounter procedure Jalyn Smith MD Work Phone: Family [facility] [place] Comment on above: Essential hypertensi on [...] 03-03-2024 ambulatory Selene Anaya RN Work Phone: [employer] [facility] Comment on above: community monitoring ([facility] telephonic/) Refill Request refills Start: 02-27-2024 End: 02-29-2024 Refill Jalyn Smith MD Work Phone: [facility] [place] Comment on above: Refill Request Start: 02-09-2024 End: 02-09-2024 Refill Casandra Kinsey CORROSION CONTROL ENGINEER Work Phone: [facility] [place] Comment on above: Refill Request Start: 02-03-2024 End: 02-03-2024 ambulatory Selene Anaya RN Work Phone: [facility] [employer] [facility] Comment on above: community monitoring (CDM telephonic/) Start: 02-01-2024 End: 02-01-2024 ambulatory Juhi Nolasco PA-C Work Phone: Pulmonary Medicine Comment on above: Breztri Start: 01-11-2024 Refill Jalyn Smith MD Work Phone: [facility] Comment on above: Refill Request community monitoring (CD telephonic/) Start: 01-06-2024 End: 01-06-2024 Patient encounter procedure Juhi Nolasco PA-C Work Phone: Pulmonary Medicine Comment on above: COPD, severe (HCC) ( Primary Dx); Chronic respiratory failure with hypoxia (HCC); Former cigarette smoker; Class 2 obesity Start: 12-14-2023 ambulatory Selene quinones RN Work Phone: [facility] Comment on above: community monitoring ([facility] telephonic/) Start: 11-18-2023 Refill Juhi Velazquez PA-C Work Phone: Pulmonary Medicine Comment on above: Refill Request; Open ed In Error Lidiai Start: 11-16-2023 ambulatory Selene quinones RN Work Phone: [facility] Start: 11-12-2023 Refill Jalyn Smith MD Work Phone: [facility] [place] Comment on above: Refill Request Start: 11-05-2023 ambulatory Juih Velazquez PA-C Work Phone: Pulmonary Medicine Comment [...] 11-03-2023 ambulatory Jahaira Fletcher RN [facility] [facility] Comment on above: General Questions change of provider Start: 10-28-2023 Refill Jalyn Smith MD Work Phone: [facility] [place] Comment on above: Refill Request Start: 10-26-2023 ambulatory Zackery Mayfield MD Work Phone: Pulmonary Medicine Comment on above: inhaler Start: 10-19-2023 ambulatory Selene quinones RN Work Phone: [employer] [facility] Comment on above: community monitoring ([facility] telephonic/) Start: 10-14-2023 End: 10-14-2023 Subsequent hospital visit by physician [facility] Radiology Comment on above: Thoracic aortic aneu rysm without rupture, unspecified part (HCC) [I71.20] Start: 10-02-2023 Refill Jalyn Smith MD Work Phone: [facility] [place] Comment on above: Refill Request Start: 09-30-2023 End: 09-30-2023 ambulatory Pulm Lab [facility] Work Phone: [facility]ULM [facility] Comment on above: Spirometry Start: 09-30-2023 End: 09-30-2023 Patient encounter procedure [facility] Work Phone: PULM LAB [facility] Start: 09-30-2023 End: 09-30-2023 Patient encounter [...] E-mail encounter jessica quinones caregiver [facility] Provider [facility] Start: 09-21-2023 End: 09-21-2023 Patient encounter procedure [...] 09-21-2023 ambulatory Selene Anaya RN Work Phone: [employer] [facility] Comment on above: community monitoring ([facility] telephonic/) Start: 09-15-2023 ambulatory Jalyn Smith MD [...] 09-08-2023 Subsequent hospital visit by physician [place] [facility] Work Phone: Radiology Comment on above: Bacterial pneumonia [J15.9] Start: 09-08-2023 End: 09-08-2023 Patient encounter procedure Jalyn Smith MD Work Phone: Family [facility] Comment on above: Bacterial pneumonia (Primary Dx); Type 2 diabetes mellitus without complication, without long-term current use of insulin (HCC); Chronic respiratory failure with hypoxia (HCC); MICHEL (obstructive sleep apnea) Start: 08-28-2023 End: 08-28-2023 [facility] Start: 08-28-2023 Telephone encounter Jalyn Smith MD Work Phone: [facility] Comment on above: Nurse Triage Call Start: 08-28-2023 End: 08-28-2023 ambulatory Nurse Intm/Famp Triage [facility] Work Phone: Nurse Phone Triage Comment on above: Abdominal Pain Start: 08-27-2023 ambulatory Zackery Mayfield MD Work Phone: Pulmonary Medicine Comment on above: breathing Start: 08-26-2023 Refill Casandra A S uppan CHEST PAINTING AND SEALING SUPERVISOR.LEVEL DESIGNER Work Phone: [facility] Comment on above: Refill Request Start: 08-24-2023 ambulatory Selene quinones RN Work Phone: [employer] [facility] Comment on above: community monitoring (CDM telephonic/) Refill Request Start: 08-17-2023 ambulatory Selene quinones RN Work Phone: [employer] [facility] Comment on above: community monitoring (CDM telephonic/) Start: 08-03-2023 Refill Jalyn Smith MD Work Phone: [facility] Comment on above: Refill Request Start: 07-24-2023 End: 07-24-2023 Patient encounter procedure Zackery Mayfield MD Work Phone: Pulmonary Medicine Comment on above: COPD, severe (HCC) ( Primary Dx); Chronic respiratory failure with hypoxia (HCC); Former cigarette smoker; Class 2 obesity Start: 07-20-2023 ambulatory Selene quinones RN Work Phone: [employer] [facility] Comment on above: community monitoring (CDM telephonic/) Start: 07-16-2023 ambulatory Selene quinones RN Work Phone: [facility] [employer] [facility] Comment on above: community monitoring (CDM telephonic/) Start: 05-18-2023 Refill Zackery Mayfield MD Work Phone: Pulmonary Medicine Comment on above: Refill Request Start: 05-03-2023 Refill Jalyn Smith MD Work Phone: [facility] Comment on above: Refill Request Start: 04-22-2023 ambulatory Juliann Fleming RN Work Phone: [facility] Comment on above: Community monitoring outreach (CDM Telephonic outreach) Start: 03-30-2023 Social Work Lizett Restrepo FUND ACCOUNTING MANAGER Nate al Start: 03-27-2023 ambulatory Selene quinones RN Work Phone: [facility] Comment on above: community monitoring (CDM telephonic/) Refill Request Start: 03-12-2023 Get Medical Advice Vi Mayfield MD Work Phone: Pulmonary Medicine Comment on above: med refill Start: 02-18-2023 End: 02-18-[address] Jalyn Smith Work Phone: [facility] Work Phone: Start: 02-18-2023 End: 02-18-[address] Jalyn Smith Work Phone: [facility]-Laboratory Work Phone: Start: 02-10-2023 ambulatory Selene quinones RN Work Phone: [employer] [facility] Comment on above: community monitoring (CDM telephonic/) Start: 02-04-2023 Telephone encounter Jalyn Smith MD Work Phone: [facility] Comment on above: Forms Start: 01-22-2023 ambulatory No Pcp TALIA Curran Start: 01-21-2023 End: 01-21-[address] Jalyn Smith Work Phone: [facility] Work Phone: Start: 01-21-2023 End: 01-21-[address] Jalyn Smith Work Phone: [facility]-Radiology, [facility] Work Phone: Start: 01-21-2023 Telephone encounter Jalyn Smith MD Work Phone: Family [facility] Comment on above: Patient Update; Orde rs [...] encounter Jalyn Smith MD Work Phone: Family [facility] Comment on above: Pain Management Refe rral Start: 01-14-2023 Telephone encounter Jalyn Smith MD Work Phone: Family [facility] Comment on above: Results Start: 01-12-2023 ambulatory Selene quinones RN Work Phone: [employer] Comment on above: community monitoring ([facility] telephonic/) Start: 01-12-2023 End: 01-12-2023 Patient encounter procedure Jalyn Smith MD Work Phone: [facility] Comment on above: Diarrhea, unspecifie d type [...] 01-09-[address] Jalyn Smith Work Phone: [facility] Work Phone: Start: 01-09-2023 End: 01-09-[address] Jalyn Smith Work Phone: [facility] Work Phone: Start: 01-08-2023 Telephone encounter Jalyn Smith MD Work Phone: [facility] Comment on above: [facility] OT POC update Refill Request Start: 12-15-2022 End: 12-15-2022 Non-patient / Non-visit Dr. Jalyn Smith Work Phone: [facility] Work Phone: Start: 12-15-2022 End: 01-02-2023 Evaluation and management of inpatient Dr. Jalyn Smith Work Phone: [facility]Trans[facility] Start: 12-15-2022 ambulatory Selene quinones RN Work Phone: [employer] Comment on above: community monitoring ([facility] telephonic/) Start: 12-15-2022 Non-patient / Non-visit Dr. Shasta Smith Work Phone: [facility] Work Phone: Start: 12-14-2022 Non-patient / Non-visit Dr. Shasta Smith Work Phone: [facility] Work Phone: Start: 12-13-2022 Non-patient / Non-visit Dr. Shasta Smith Work Phone: [facility] Work Phone: Start: 12-12-2022 Non-patient / Non-visit Dr. Shasta Smith Work Phone: [facility] Work Phone: Start: 12-11-2022 ambulatory Herminia KHAN [facility] Comment on above: Information Start: 12-11-2022 Non-patient / Non-visit Dr. Shasta Smith Work Phone: [facility] Work Phone: Start: 12-10-2022 Non-patient / Non-visit Dr. Shasta Smith Work Phone: [facility] Work Phone: Start: 12-10-2022 End: 12-15-2022 Evaluation and management of inpatient [facility] 3 Work Phone: Start: 12-10-2022 End: 12-15-[address] Jalyn Smith Work Phone: [facility] Work Phone: Start: 12-10-2022 End: 12-10-2022 Patient encounter procedure Jalyn Smith MD Work Phone: [facility] Comment on above: Essential hypertensi on (Primary [...] Telephone encounter Jalyn Smith MD Work Phone: [facility] Comment on above: Patient Update Start: 12-05-2022 End: 12-05-2022 ambulatory [facility] Work Phone: Start: 12-05-2022 End: 12-05-2022 Discharged Recurring [facility] Work Phone: Start: 11-13-2022 ambulatory Selene quinones RN Work Phone: [employer] Comment on above: community monitoring (CDM telephonic/) Start: 10-24-2022 End: 11-05-2022 ambulatory [facility] Work Phone: Start: 10-24-2022 End: 11-05-2022 Discharged Recurring [facility] Start: 10-15-2022 Refill Jalyn Smith MD Work Phone: [employer] Comment on above: Refill Request Start: 10-14-2022 ambulatory Darlene Brewster Work Phone: [employer] Comment on above: CDM (Check in call/) Start: 10-03-2022 End: 10-05-2022 [facility] Work Phone: Start: 10-03-2022 End: 10-05-2022 Discharged Recurring [facility] Start: 10-01-2022 End: 10-01-2022 Patient encounter procedure Jalyn Smith MD Work Phone: [facility] Comment on above: Essential hypertensi on (Primary [...] 09-27-2022 ambulatory Jalyn Smith MD Work Phone: [facility] Start: 09-27-2022 Patient encounter procedure Jalyn Smith MD Work Phone: [facility] Comment on above: appointment Start: 09-19-2022 ambulatory Amol Sinha RN N[facility] Comment on above: Information Start: 09-11-2022 ambulatory Darlene Brewster Work Phone: [employer] Comment on above: cdm (Check in call/) Start: 09-05-2022 End: 09-05-2022 ambulatory [facility] Work Phone: Start: 09-05-2022 End: 09-05-2022 Discharged Recurring [facility] Start: 09-01-2022 Telephone encounter Dayami Darby MD Work Phone: [facility] Comment on above: Appointment (Appoint ment) Start: 08-06-2022 ambulatory Darlene Salazar N Work Phone: [employer] Comment on above: CDM (Check in call/) Start: 08-01-2022 End: 08-05-2022 [facility] Work Phone: Start: 08-01-2022 End: 08-05-2022 Discharged Recurring [facility] Start: 07-21-2022 Refill Jalyn Smith MD Work Phone: [facility] Comment on above: Refill Request Start: 07-17-2022 End: 07-17-2022 Patient encounter procedure Jalyn Smith MD Work Phone: [facility] Comment on above: Venous stasis ulcer of right calf without varicose veins, unspecified ulcer stage (HCC) (Primary Dx); Essential hypertension; Type 2 diabetes mellitus without complication, without long-term current use of insulin (HCC) Start: 07-15-2022 Telephone encounter Jalyn Smith MD Work Phone: [address] [place] [address] Comment on above: Orders Start: 07-08-2022 ambulatory Darlene Salazar N Work Phone: [employer] Comment on above: CDM (Check in call/) Start: 07-02-2022 Refill Juhi Velazquez PA-C Work Phone: [facility] Comment on above: Refill Request Start: 06-30-2022 [facility] Get Medical Advice Jalyn Smith MD Work Phone: [facility] Comment on above: auto refill Refill Request Start: 06-26-2022 Refill Jalyn Smith MD Work Phone: [facility] Comment on above: Refill Request Start: 06-23-2022 ambulatory Zackery Mayfield MD Work Phone: [facility] Comment on above: non urgent question Start: 06-20-2022 End: 06-20-2022 Patient encounter procedure Zackery Mayfield MD Work Phone: [facility] Comment on above: Stage 3 severe COPD by GOLD classification ([facility]) (Primary Dx); Dependence on continuous supplemental oxygen; Class 1 obesity due to excess calories with body mass index (BMI) of 34.0 to 34.9 in adult, unspecified whether serious comorbidity present Start: 06-13-2022 ambulatory [facility]opese [facility] [place] Comment on above: Population Health Na vigation Outreach (hcc) Start: 06-10-2022 ambulatory Darlene Islas May R N Work Phone: [employer] Comment on above: cdm (Check in call/) Start: 06-06-2022 ambulatory Darlene Urbano R N Work Phone: [employer] Comment on above: CDM (Check in call/) Start: 05-09-2022 Refill Juhi Velazquez PA-C Work Phone: [facility] Medicine Comment on above: Refill Request Start: 05-07-2022 ambulatory Darlene Urbano R N Work Phone: [employer] Comment on above: CDM (Check in call/) Start: 04-18-2022 Telephone encounter Dayami Darby MD Work Phone: [facility] Comment on above: Appointment (Appoint ment) Start: 04-18-2022 End: 04-18-2022 Subsequent hospital visit by physician [facility] (I-Stat) Work Phone: Cat Scan Comment on above: Dissection of descen ding thoracic aorta ([facility]) [I71.012] Start: 04-07-2022 ambulatory Darlene Islas May R N Work Phone: [facility] Start: 04-07-2022 Follow-up encounter Darlene blackman RN Work Phone: [employer] Comment on above: Community Monitoring Outreach (inSight questionnaire follow up/) Start: 03-26-2022 ambulatory Maria Alejandra Clement um CHEST PAINTING AND SEALING SUPERVISOR.CORROSION CONTROL ENGINEER Work Phone: Pulmonary Medicine Start: 03-25-2022 ambulatory Violeta Chandra RN Work Phone: [facility] Comment on above: Patient Question (Re garding return of Cologuard ) Start: 03-20-2022 End: 03-20-2022 Patient encounter procedure Jalyn Smith MD Work Phone: [facility] Comment on above: Thoracic aortic aneu rysm [...] Aortic dissection, abdominal (HCC) Start: 03-17-2022 [facility] Comment on above: Population Health Na vigation Outreach ([facility] [place]) Start: 03-12-2022 Telephone encounter Lizett Kidd Comment on above: Social Work Services Start: 03-11-2022 ambulatory Darlene Brewster Work Phone: [facility] Start: 03-11-2022 Follow-up encounter Darlene blackman RN Work Phone: [employer] Comment on above: community monitoring outreach (inSight questionnaire follow up/) Start: 03-10-2022 ambulatory Darlene Salazar N Work Phone: [facility] [place] Start: 03-10-2022 Follow-up encounter Darlene blackman RN Work Phone: [employer] Comment on above: Community Monitoring Outreach (inSight questionnaire follow up/) Start: 03-06-2022 Refill Jalyn Smith MD Work Phone: [facility] Comment on above: Refill Request Start: 02-25-2022 Refill Jalyn Smith MD Work Phone: [facility] Comment on above: Refill Request Start: 02-19-2022 ambulatory Darlene Islas May R N Work Phone: [employer] Comment on above: community monitorion g outreach (inSight enrollment with [facility] introduction/) Start: 02-17-2022 ambulatory Darlene Islas May R N Work Phone: [employer] Comment on above: community monitoring outreach (inSight enrollment with [facility] introduction/) Start: 02-14-2022 ambulatory Darlene Urbano R N Work Phone: [employer] Comment on above: community monitoring outreach (inSight enrollment with [facility] introduction/) Start: 02-14-2022 Follow-up encounter Jalyn Smith MD Work Phone: [facility] Comment on above: follow up Start: 02-09-2022 ambulatory Darlene Islas May R N Work Phone: [employer] Comment on above: community monitoring outreach (inSight enrollment with [facility] introduction/) Start: 02-07-2022 End: 02-13-2022 ambulatory [facility] Work Phone: Start: 02-07-2022 End: 02-13-2022 Discharged Recurring [facility] Start: 02-05-2022 Telephone encounter Jalyn Smith MD Work Phone: [facility] Comment on above: Insurance Authorizat ion Start: 01-31-2022 Refill Jalyn Smith MD Work Phone: [facility] Comment on above: Refill Request Start: 01-24-2022 End: 02-05-2022 ambulatory [facility] Work Phone: Start: 01-24-2022 End: 02-05-2022 Discharged Recurring [facility] Start: 01-03-2022 End: 01-05-[address] Jalyn Smith Work Phone: [facility] Start: 12-21-2021 ambulatory Jalyn Smith MD Work Phone: [facility] [place] Start: 12-21-2021 Follow-up encounter [facility] Comment on above: follow-up Start: 12-20-2021 Refill Jalyn Smith MD Work Phone: [facility] [place] Comment on above: Refill Request Start: 12-01-2021 Refill [facility] MD [facility] Comment on above: Refill Request Start: 11-29-2021 End: 12-05-[address] Jalyn Smith Work Phone: [facility] Start: 11-05-2021 End: 11-05-[address] Jalyn Smith Work Phone: [facility] Start: 10-28-2021 Refill Jalyn Smith MD Work Phone: [facility] Comment on above: Refill Request Start: 10-26-2021 Refill Jalyn Smith MD Work Phone: [facility] Comment on above: Refill Request Start: 10-24-2021 ambulatory Jalyn Smith MD Work Phone: [facility] Comment on above: knees Refill Request Start: 10-04-2021 End: 10-05-[address] Jalyn Smith Work Phone: [facility] Start: 09-26-2021 Non-patient / Non-visit Dr. Shasta Smith Work Phone: [facility] Start: 09-23-2021 Refill Juhi Velazquez PA-C Work Phone: [facility] Medicine Comment on above: Refill Request Start: 09-19-2021 Refill Jalyn Smith MD Work Phone: [facility] Comment on above: Refill Request Start: 09-18-2021 End: 09-18-2021 Patient encounter procedure Jalyn Smith MD Work Phone: [facility] Comment on above: Wound of left lower extremity, subsequent encounter (Primary Dx) Start: 09-13-2021 End: 09-13-2021 Patient encounter procedure Anthony Rodríguez PA-C Work Phone: [facility] Comment on above: Puncture wound of le ft calf (Primary Dx) Start: 09-11-2021 ambulatory Rolf Ackerman [facility] [place] Comment on above: Population Health Na vigation Outreach ([employer] care gaps) Start: 09-09-2021 Refill Anthony catherine PA-C Work Phone: [facility] Comment on above: Refill Request Start: 09-06-2021 Telephone encounter Jalyn Smith MD Work Phone: [facility] Comment on above: ER FU apt Start: 08-30-2021 End: 08-30-2021 Emergency department patient visit Dr. Jalyn Smith Work Phone: [facility]Emergency Department Start: 08-15-2021 Telephone encounter Jalyn Smith MD Work Phone: [facility] Comment on above: [facility] OT POC Start: 08-06-2021 Non-patient / Non-visit Dr. Shasta Smith Work Phone: [facility] Start: 07-26-2021 Non-patient / Non-visit Dr. Shasta Smith Work Phone: [facility] Start: 07-25-2021 End: 08-09-2021 Evaluation and management of inpatient Dr. Jalyn Smith Work Phone: [facility]Transitional Care [facility] Start: 07-25-2021 Non-patient / Non-visit Dr. Shasta Smith Work Phone: [facility] Start: 07-25-2021 End: 07-25-2021 Evaluation and management of inpatient Dr. Jalyn Smith Work Phone: [facility] Start: 07-24-2021 Telephone encounter Jalyn Smith MD Work Phone: [facility] Comment on above: Patient Update Start: 10-11-2020 ambulatory SCOOTER JUAREZ [facility] Procedures Date Procedure Procedure Detail Performing Clinician Start: 12-02-2024 Ct angio abd&plvis c ntrst mtrl w/wo cntrst img Yaniv Todd MD Work Phone: Start: 09-04-2024 Computed tomography of abdomen and pelvis with intravenous contrast Dr. Jalyn Smith MD Work Phone: Start: 03-09-2024 PFIZER-BIONTECH COVI D-19 VACCINE AGE 12+ YR (COMIRNATY) Jalyn Smith MD Work Phone: Start: 10-14-2023 CTA CHEST/ABD/PEL (NONGATED) W IVCON Yaniv Todd MD Work Phone: Start: 09-30-2023 Noninvasive [...] ntrst mtrl w/wo cntrst img Herminia Carrera APRN.CORROSION CONTROL ENGINEER Work Phone: Start: 04-18-2022 Ct angiography chest w/contrast/noncontrast Herminia Carrera APRN.CORROSION CONTROL ENGINEER Work Phone: Start: 03-20-2022 [employer] [employer]-BIONTGELI COVI D-19 BIVALENT BOOSTER VACCINE, AGE 12+ [...] 08-05-2021 Radiologic examinati on of knee Dr. aJlyn Smith Work Phone: Start: 07-28-2021 Urine culture [...] of transfusion reaction Microbial culture, routine D ruby Smith Work Phone: Microbial culture, routine Plan of Treatment Date Care Activity Detail Author Start: 2031 Urine microalbumin profile [facility] Start: 03-09-2027 Diabetes Screening Diabetes Screening [facility] Start: 09-26-2025 Glaucoma screening Dilated Retinal Exam [facility] Start: 09-07-2025 Annual PCP Team Chronic Disease Visit Annual PCP Team Chronic Disease Visit [facility] Start: 09-07-2025 BP Controlled (<130/80) BP Controlled (<130/80) [facility] Start: 09-07-2025 Covid-19 Vaccine () Covid-19 Vaccine () [facility] Comment on above: Postponed from 09/07/2024 (Declined at t his time) Start: 09-07-2025 Diabetic foot examination Diabetic Foot Exam [facility] Start: 09-07-2025 Hepatitis B screening Urine Albumin:Creatinine Ratio [facility] Start: 09-07-2025 Hepatitis B surface antibody level LDL Cholesterol [facility] Start: 08-15-2025 Glaucoma screening Dilated Retinal Exam [facility] Start: 03-25-2025 COLOGUARD (FIT-DNA) COLOGUARD (FIT-DNA) [facility] Start: 03-25-2025 COLORECTAL CANCER SCREENING COLORECTAL CANCER SCREENING [facility] Start: 03-25-2025 Screening for malignant neoplasm of colon [facility] Start: 03-22-2025 End: 03-22-2025 Patient encounter procedure [facility] Comment on above: 6 mo/physical 6 mo/wellness Start: 03-09-2025 Annual PCP Team Chronic Disease Visit Annual PCP Team Chronic Disease Visit [facility] Start: 03-09-2025 Anxiety Screening Anxiety Screening [facility] Start: 03-09-2025 BP Controlled (<130/80) BP Controlled (<130/80) [facility] Start: 03-09-2025 Hemoglobin A1c measurement HbA1C [facility] Start: 03-09-2025 Shingrix Vaccine (1 of 2) Shingrix Vaccine (1 of 2) [facility] Comment on above: Postponed from 08/30/1997 (Declined at t his time) Start: 02-15-2025 End: 02-15-2025 Patient encounter procedure [facility] Comment on above: oxygen renewal Start: 02-15-2025 End: 02-15-2025 ambulatory 02/15/2025 1:00 PM EDT Procedure [facility] [address] [place] [address] Wstr, Pul[facility] [address] [place] [address] O2 recert [facility] Comment on above: O2 recert Start: 02-06-2025 Influenza vaccination Influenza Vaccine (#1) [facility] Start: 12-15-2024 End: 12-15-2024 Patient encounter procedure 12/15/2024 1:30 PM EDT Office Visit Vascular Surgery [address] [address] Yaniv Todd MD [address] [address] follow up Vascular Surgery Comment on above: follow up Start: 12-12-2024 End: 12-12-2024 Follow-up encounter 12/12/2024 3:00 PM EDT [facility] [address] [id number] Yaniv Todd MD [address] [address] follow up chronic type B aortic dissection [...] ambulatory 12/02/2024 12:45 PM EDT Results Only [facility] [address] [place] [address] CREATINE [facility] Comment on above: CREATINE Start: 12-02-2024 End: 12-02-2024 Patient encounter procedure 12/02/2024 11:20 AM EDT Appointment Cat Scan [address] [place] [address] CTA CHEST (NONGATED) W IVCON Cat Scan Comment on above: CTA CHEST (NONGATED) W IVCON Start: 11-17-2024 End: 02-16-2025 Creatinine and Glomerular filtration rate.predicted panel - Serum, Plasma or Blood CREATININE BLD Lab Routine 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) Expected: 11/17/2024 (Approximate), Expires: 02/16/2025 [facility] Work Phone: Comment on above: Expected: 11/17/2024 (Approximate), Expi res: 02/16/2025 Start: 11-04-2024 BP Controlled (<130/80) BP Controlled (<130/80) [facility] Start: 11-04-2024 End: 12-04-2024 CTA Abdominal vessels and Pelvis vessels W contrast IV CTA ABD/PEL W IVCON Radiology Routine 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) Thoracic aortic aneurysm without rupture, unspecified part (HCC) Dissection of thoracoabdominal aorta (HCC) Expected: 11/04/2024, Expires: 12/04/2024 [facility] Comment on above: Expected: 11/04/2024, Expires: Start: 11-04-2024 End: 12-04-2024 CTA Chest vessels W contrast IV CTA CHEST (NONGATED) W IVCON Radiology Routine Expected: 11/04/2024, Expires: 12/04/2024 [facility] Work Phone: Comment on above: Expected: 11/04/2024, Expires: Start: 10-26-2024 Shingrix Vaccine (2 of 2) Shingrix Vaccine (2 of 2) [facility] Start: 09-29-2024 BP Controlled (<130/80) BP Controlled (<130/80) [facility] Start: 09-07-2024 End: 09-07-2024 Patient encounter procedure 09/07/2024 2:40 PM EDT Office Visit [facility] [address] [place], [place] [id number] Jalyn Smith MD [address] [place] [address] 6 month follow up [facility] Comment on above: 6 month follow up Start: 09-07-2024 Annual PCP Team Chronic Disease Visit Annual PCP Team Chronic Disease Visit [facility] Start: 09-07-2024 BP Controlled (<130/80) BP Controlled (<130/80) [facility] Start: 09-07-2024 Covid-19 Vaccine () Covid-19 Vaccine () [facility] Comment on above: Postponed from 02/06/2023 (Declined at t his time) Start: 09-07-2024 Covid-19 Vaccine () Covid-19 Vaccine () [facility] Start: 09-07-2024 Diabetic foot examination Diabetic Foot Exam [facility] Start: 09-07-2024 End: 12-07-2024 Hemoglobin A1c in Blood [facility] Comment on above: Expected: 09/07/2024, Expires: Start: 09-07-2024 Hemoglobin A1c measurement HbA1C [facility] Start: 09-07-2024 Hepatitis B screening Urine Albumin:Creatinine Ratio [facility] Start: 09-07-2024 Hepatitis B surface antibody level LDL Cholesterol [facility] Start: 09-07-2024 Hepatitis C screening Hepatitis C Screening [facility] Comment on above: Postponed from 08/30/1965 (Declined at t his time) Start: 09-07-2024 End: 12-07-2024 LIPID PANEL, NONFASTING [facility] Work Phone: Comment on above: Expected: 09/07/2024, Expires: Start: 09-07-2024 End: 12-07-2024 Magnesium [Mass/volume] in Serum or Plasma [facility] Comment on above: Expected: 09/07/2024, Expires: Start: 09-07-2024 End: 12-07-2024 Microalbumin/Creatinine [Mass Ratio] in Urine [facility] Comment on above: Expected: 09/07/2024, Expires: Start: 09-07-2024 RSV Vaccine (1 - 1-dose 60+ series) RSV Vaccine (1 - 1-dose 60+ series) [facility] Comment on above: Postponed from 2007 (Declined at t his time) Start: 09-07-2024 RSV Vaccine (1 - 1-dose 75+ series) RSV Vaccine (1 - 1-dose 75+ series) [facility] Comment on above: Postponed from 08/30/2022 (Declined at t his time) Start: 09-07-2024 Screening for malignant neoplasm of lung Lung Cancer Screening [facility] Comment on above: Postponed from 03/29/2023 (Postponed To Appropriate Date) Start: 09-04-2024 Bacteria identified in Urine by Culture Urine Culture [facility] Start: 09-04-2024 [facility] Start: 09-04-2024 [facility] Start: 07-01-2024 End: 07-01-2024 Patient encounter procedure 07/01/2024 11:45 AM EST Office Visit Pulmonary Medicine [address] [place] [address] Zackery Mayfield MD [address] [place], [place] [id number] 9 mo f/u Pulmonary Medicine Comment on above: 9 mo f/u Start: 06-08-2024 Advance Directive Discussion Advance Directive Discussion [facility] Start: 06-08-2024 Medicare Advantage Annual Wellness Visit Medicare Advantage Annual Wellness Visit [facility] Start: 04-11-2024 End: 07-11-2024 CBC W Auto Differential panel - Blood COMPLETE BLOOD COUNT AND DIFFERENTIAL Lab Routine Anemia, unspecified type History of rectal bleeding Expected: 04/11/2024, Expires: 07/11/2024 [facility] Work Phone: Comment on above: Expected: 04/11/2024, Expires: Start: 04-11-2024 End: 07-11-2024 Magnesium [Mass/volume] in Serum or Plasma MAGNESIUM Lab Routine Hypomagnesemia Expected: 04/11/2024, Expires: 07/11/2024 [facility] Comment on above: Expected: 04/11/2024, Expires: Start: 03-09-2024 End: 03-09-2024 Patient encounter procedure 03/09/2024 3:20 PM EDT Office Visit Family [facility] [address] [place], [place] [address] Jalyn Smith MD [address] [place], [place] [id number] 6 month follow up [facility] Comment on above: 6 month follow up Start: 03-09-2024 End: 06-08-2024 Basic metabolic 2000 panel - Serum or Plasma [facility] Comment on above: Expected: 03/09/2024, Expires: 5 Start: 03-09-2024 End: 06-08-2024 CBC W Auto Differential panel - Blood [facility] Comment on above: Expected: 03/09/2024, Expires: Start: 03-09-2024 End: 06-08-2024 Hemoglobin A1c in Blood [facility] Work Phone: Comment on above: Expected: 03/09/2024, Expires: Start: 03-09-2024 Hemoglobin A1c measurement HbA1C [facility] Start: 03-09-2024 End: 06-08-2024 Iron and Iron binding capacity panel - Serum or Plasma [facility] Comment on above: Expected: 03/09/2024, Expires: Start: 03-09-2024 End: 06-08-2024 Magnesium [Mass/volume] in Serum or Plasma [facility] Comment on above: Expected: 03/09/2024, Expires: Start: 02-07-2024 Covid-19 Vaccine () Covid-19 Vaccine () [facility] Start: 02-07-2024 Covid-19 Vaccine ( season) Covid-19 Vaccine () [facility] Start: 02-07-2024 Influenza vaccination [facility] Start: 01-20-2024 BP CONTROLLED (<130/80) BP CONTROLLED (<130/80) [facility] Start: 01-13-2024 ANNUAL PCP TEAM CHRONIC DISEASE VISIT ANNUAL PCP TEAM CHRONIC DISEASE VISIT [facility] Start: 01-13-2024 BP CONTROLLED (<130/80) BP CONTROLLED (<130/80) [facility] Start: 01-06-2024 End: 01-06-2024 Patient encounter procedure 01/06/2024 11:30 AM EDT Office Visit Pulmonary Medicine [address] [place], [place] [id number] Juhi Nolasco PA-C [address], [place] [id number] 3 mo fu Pulmonary Medicine Comment on above: 3 mo fu Start: 12-11-2023 ANNUAL PCP TEAM CHRONIC DISEASE VISIT ANNUAL PCP TEAM CHRONIC DISEASE VISIT [facility] Start: 12-11-2023 BP CONTROLLED (<130/80) BP CONTROLLED (<130/80) [facility] Start: 11-05-2023 End: 11-05-2023 Patient encounter procedure 11/05/2023 10:30 AM EDT Office Visit Vascular Surgery [address] [address] Yaniv Todd MD [address] 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] Radiology Comment on above: #20 IV Thoracic aortic aneurysm without rupture, unspecified part (HCC) [I71.20]; Dissection of descending aorta ([facility]) [I71.00] Start: 10-02-2023 ANNUAL PCP TEAM CHRONIC DISEASE VISIT ANNUAL PCP TEAM CHRONIC DISEASE VISIT [facility] Start: 10-02-2023 BP CONTROLLED (<130/80) BP CONTROLLED (<130/80) [facility] Start: 10-02-2023 SHINGRIX VACCINE (1 of 2) SHINGRIX VACCINE (1 of 2) [facility] Comment on above: Postponed from 08/30/1997 (Declined at t his time) Start: 09-24-2023 End: 12-24-2023 Urinalysis complete panel - Urine URINALYSIS, WITH MICROSCOPIC Lab Routine Microscopic hematuria Expected: 09/24/2023, Expires: 12/24/2023 [facility] Work Phone: Comment on above: Expected: 09/24/2023, Expires: Start: 09-09-2023 End: 12-09-2023 Basic metabolic 2000 panel - Serum or Plasma BASIC METABOLIC PNL Lab Routine Renal insufficiency Anemia, unspecified type Expected: 09/09/2023, Expires: 12/09/2023 [facility] Work Phone: Comment on above: Expected: 09/09/2023, Expires: Start: 09-09-2023 End: 12-09-2023 CBC W Auto Differential panel - Blood CBC + DIFF Lab Routine Renal insufficiency Anemia, unspecified type Expected: 09/09/2023, Expires: 12/09/2023 [facility] Work Phone: Comment on above: Expected: 09/09/2023, Expires: Start: 09-09-2023 End: 12-09-2023 Ferritin [Mass/volume] in Serum or Plasma FERRITIN BLD Lab Routine Renal insufficiency Anemia, unspecified type Expected: 09/09/2023, Expires: 12/09/2023 [facility] Work Phone: Comment on above: Expected: 09/09/2023, Expires: Start: 09-09-2023 End: 12-09-2023 Iron and Iron binding capacity panel - Serum or Plasma IRON + TIBC Lab Routine Renal insufficiency Anemia, unspecified type Expected: 09/09/2023, Expires: 12/09/2023 [facility] Work Phone: Comment on above: Expected: 09/09/2023, Expires: 4 Start: 09-09-2023 End: 12-09-2023 Urinalysis complete panel - Urine URINALYSIS, WITH MICROSCOPIC Lab Routine Renal insufficiency Anemia, unspecified type Expected: 09/09/2023, Expires: 12/09/2023 [facility] Work Phone: Comment on above: Expected: 09/09/2023, Expires: Start: 08-28-2023 [facility] Start: 07-17-2023 ANNUAL PCP TEAM CHRONIC DISEASE VISIT ANNUAL PCP TEAM CHRONIC DISEASE VISIT [facility] Start: 06-08-2023 Advance Directive Discussion Advance Directive Discussion [facility] Start: 04-18-2023 Glaucoma screening Dilated Retinal Exam [facility] Start: 04-18-2023 Hepatitis C antibody, confirmatory test DILATED RETINAL EXAM [facility] Start: 04-02-2023 Hemoglobin A1c measurement HbA1C [facility] Start: 04-02-2023 Hemoglobin A1c/Hemoglobin.total in Blood HBA1C [facility] Start: 03-29-2023 Influenza vaccination LUNG CANCER SCREENING [facility] Start: 03-29-2023 Screening for malignant neoplasm of lung Lung Cancer Screening [facility] Start: 03-20-2023 3 comp foot exam completed DIABETIC FOOT EXAM [facility] Start: 03-20-2023 ANNUAL PCP TEAM CHRONIC DISEASE VISIT ANNUAL PCP TEAM CHRONIC DISEASE VISIT [facility] Start: 03-20-2023 BP CONTROLLED (<130/80) BP CONTROLLED (<130/80) [facility] Start: 03-20-2023 Diabetic foot examination Diabetic Foot Exam [facility] Start: 03-20-2023 Hepatitis B screening URINE ALBUMIN:CREATININE RATIO [facility] Start: 03-20-2023 Hepatitis B surface antibody level LDL CHOLESTEROL [facility] Start: 02-18-2023 Procedure [facility] Start: 02-06-2023 Covid-19 Vaccine () Covid-19 Vaccine ( season) [facility] Start: 02-06-2023 Influenza vaccination [facility] Start: 01-14-2023 End: 03-16-2023 CBC W Auto Differential panel - Blood CBC + DIFF Lab Routine Anemia, unspecified type Expected: 01/14/2023, Expires: 03/16/2023 [facility] Work Phone: Comment on above: Expected: 01/14/2023, Expires: 3 Start: 01-12-2023 End: 03-14-2023 Bacteria identified in Urine by Culture [facility] Work Phone: Comment on above: Expected: 01/12/2023, Expires: Start: 01-12-2023 End: 03-14-2023 Basic metabolic 2000 panel - Serum or Plasma [facility] Work Phone: Comment on above: Expected: 01/12/2023, Expires: 3 Start: 01-12-2023 End: 03-14-2023 Urinalysis complete panel - Urine [facility] Work Phone: Comment on above: Expected: 01/12/2023, Expires: 3 Start: 01-02-2023 Patient discharge [facility] Start: 01-01-2023 Development of care plan [facility] Start: 12-30-2022 Referral to service [facility] Start: 12-29-2022 [facility] Start: 12-22-2022 Palliative care [facility] Start: 12-21-2022 Inhalation therapy procedure [facility] Start: 12-16-2022 Development of care plan [facility] Start: 12-16-2022 Developing a treatment plan [facility] Start: 12-15-2022 Wound care [facility] Start: 12-15-2022 Oxygen therapy [facility] Start: 12-15-2022 Admission procedure [facility] Start: 12-15-2022 Measuring intake and output [facility] Start: 12-15-2022 Patient referral to dietitian [facility] Start: 12-15-2022 Referral to occupational therapist [facility] Start: 12-15-2022 Referral to service [facility] Start: 12-15-2022 Vital signs measurements [facility] Start: 12-15-2022 [facility] Start: 12-15-2022 Patient discharge [facility] Start: 12-14-2022 Incentive spirometry [facility] Start: 12-14-2022 [facility] Start: 12-12-2022 Following clinical pathway protocol [facility] Start: 12-11-2022 Admission procedure [facility] Start: 12-11-2022 Consultation for treatment [facility] Start: 12-11-2022 Application of intermittent pneumatic compression device [facility] Start: 12-10-2022 Assessment of risk of venous thromboembolism [facility] Start: 12-10-2022 Insertion of catheter into peripheral vein [facility] Start: 12-10-2022 Oxygen therapy [facility] Start: 12-10-2022 Providing care according to standard [facility] Start: 12-10-2022 Provision of activity privileges [facility] Start: 12-10-2022 Referral to occupational therapist [facility] Start: 12-10-2022 Referral to service [facility] Start: 12-10-2022 Wound care [facility] Start: 12-10-2022 [facility] Start: 12-10-2022 Verification routine [facility] Start: 12-10-2022 [facility] Start: 12-10-2022 Bacteria identified in Urine by Culture Urine Culture [facility] Start: 10-01-2022 End: 12-01-2022 Hemoglobin A1c in Blood [facility] Work Phone: Comment on above: Expected: 10/01/2022, Expires: Start: 09-18-2022 ANNUAL PCP TEAM CHRONIC DISEASE VISIT ANNUAL PCP TEAM CHRONIC DISEASE VISIT [facility] Start: 09-18-2022 BP CONTROLLED (<130/80) BP CONTROLLED (<130/80) [facility] Start: 09-18-2022 Hemoglobin A1c/Hemoglobin.total in Blood HBA1C [facility] Start: 09-13-2022 ANNUAL PCP TEAM CHRONIC DISEASE VISIT ANNUAL PCP TEAM CHRONIC DISEASE VISIT [facility] Start: 09-10-2022 ANNUAL PCP TEAM CHRONIC DISEASE VISIT ANNUAL PCP TEAM CHRONIC DISEASE VISIT [facility] Start: 08-16-2022 ANNUAL PCP TEAM CHRONIC DISEASE VISIT ANNUAL PCP TEAM CHRONIC DISEASE VISIT [facility] Start: 07-21-2022 COVID-19 VACCINE (5 - Moderna series) COVID-19 VACCINE (5 - Moderna series) [facility] Start: 06-08-2022 ADVANCE DIRECTIVE DISCUSSION ADVANCE DIRECTIVE DISCUSSION [facility] Start: 03-28-2022 Hemoglobin A1c/Hemoglobin.total in Blood HBA1C [facility] Start: 03-26-2022 COLORECTAL CANCER SCREENING COLORECTAL CANCER SCREENING [facility] Start: 03-20-2022 End: 05-20-2022 ALBUMIN/CREAT RATIO RND UR [facility] Work Phone: Comment on above: Expected: 03/20/2022, Expires: 2 Start: 03-20-2022 End: 03-20-2023 CBC W Auto Differential panel - Blood [facility] Work Phone: Comment on above: Expected: 03/20/2022, Expires: 3 Start: 03-20-2022 End: 03-20-2023 Comprehensive metabolic 2000 panel - Serum or Plasma [facility] Work Phone: Comment on above: Expected: 03/20/2022, Expires: 3 Start: 03-20-2022 End: 05-20-2022 CREATININE BLD CREATININE BLD Lab Routine 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, abdominal (HCC) Expected: 03/20/2022, Expires: 05/20/2022 [facility] Work Phone: Comment on above: Expected: 03/20/2022, Expires: 2 Start: 03-20-2022 End: 05-20-2022 Hemoglobin A1c in Blood [facility] Work Phone: Comment on above: Expected: 03/20/2022, Expires: 2 Start: 03-20-2022 End: 03-20-2023 Lipid 1996 panel - Serum or Plasma [facility] Work Phone: Comment on above: Expected: 03/20/2022, Expires: 3 Start: 02-06-2022 Influenza vaccination [facility] Start: 11-27-2021 COVID-19 VACCINE (4 - Booster for Moderna series) COVID-19 VACCINE (4 - Booster for Moderna series) [facility] Start: 09-24-2021 COVID-19 VACCINE (4 - Booster for Moderna series) COVID-19 VACCINE (4 - Booster for Moderna series) [facility] Start: 09-11-2021 End: 11-11-2021 ALBUMIN/CREAT RATIO RND UR ALBUMIN/CREAT RATIO RND UR Lab Routine Type 2 diabetes mellitus without complication, without long-term current use of insulin (HCC) Expected: 09/11/2021, Expires: 11/11/2021 [facility] Work Phone: Comment on above: Expected: 09/11/2021, Expires: 2 Start: 09-11-2021 End: 11-11-2021 LIPID PANEL BASIC LIPID PANEL BASIC Lab Routine Type 2 diabetes mellitus without complication, without long-term current use of insulin (HCC) Expected: 09/11/2021, Expires: 11/11/2021 [facility] Work Phone: Comment on above: Expected: 09/11/2021, Expires: 2 Start: 08-30-2021 Smpl repair scalp/neck/ax/genit/trun k 2.6-7.5cm RPR S/N/AX/GEN/TRNK2.6-7.5CM [facility] Work Phone: Start: 08-20-2021 3 comp foot exam completed DIABETIC FOOT EXAM [facility] Start: 08-08-2021 Hepatitis B screening URINE ALBUMIN:CREATININE RATIO [facility] Start: 07-31-2021 Hepatitis B surface antibody level LDL CHOLESTEROL [facility] Start: 06-08-2021 ADVANCE DIRECTIVE DISCUSSION ADVANCE DIRECTIVE DISCUSSION [facility] Start: 01-28-2021 Hemoglobin A1c/Hemoglobin.total in Blood HBA1C [facility] Start: 06-29-2020 COLORECTAL CANCER SCREENING COLORECTAL CANCER SCREENING [facility] Start: 06-29-2020 FECAL OCCULT BLOOD FECAL OCCULT BLOOD [facility] Start: 06-29-2020 Screening for malignant neoplasm of colon Fecal Occult Blood [facility] Start: 01-05-2020 Mammography MAMMOGRAM [facility] Start: 2007 Hepatitis B Vaccine (1 of 3 - Risk 3-dose series) Hepatitis B Vaccine (1 of 3 - Risk 3-dose series) [facility] Start: 2007 RSV Vaccine (1 - 1-dose 60+ series) RSV Vaccine (1 - 1-dose 60+ series) [facility] Start: 08-30-1997 Influenza vaccination LUNG CANCER SCREENING [facility] Start: 08-30-1997 SHINGRIX VACCINE (1 of 2) SHINGRIX VACCINE (1 of 2) [facility] Start: 08-30-1992 COLOGUARD (FIT-DNA) COLOGUARD (FIT-DNA) [facility] Start: 08-30-1992 Colonoscopy COLONOSCOPY [facility] Start: 08-30-[address] COLONOGRAPHY [facility] Start: 08-30-1992 Screening for malignant neoplasm of colon [facility] Start: 08-30-1992 SIGMOIDOSCOPY SIGMOIDOSCOPY [facility] Start: 08-30-1977 Zoledronic acid therapy ALPHA-1 ANTITRYPSIN DEFICIENCY SCREENING [facility] Start: 08-30-1965 Anxiety Screening Anxiety Screening [facility] Start: 08-30-1965 BP CONTROLLED (<130/80) BP CONTROLLED (<130/80) [facility] Start: 08-30-1965 HEPATITIS C SCREENING HEPATITIS C SCREENING [facility] Start: 08-30-1965 Hepatitis C screening Hepatitis C Screening [facility] Start: 08-30-1957 Hepatitis C antibody, confirmatory test DILATED RETINAL EXAM [facility] Clostridioides diffi cile toxin genes [Presence] in Stool by MONCHO with probe detection C. DIFFICILE PCR Lab Routine Diarrhea, unspecified type Ordered: 01/12/2023 [facility] Work Phone: Comment on above: Ordered: 01/12/2023 COLOGUARD COLOGUARD Lab Ro utine Screen for colon cancer Ordered: 03/20/2022 [facility] Work Phone: Comment on above: Ordered: 03/20/2022 End: 04-19-2023 Ct angio abd&plvis cntrst mtrl w/wo cntrst img CTA ABD/PEL W IVCON Radiology Routine 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, abdominal (HCC) 1 Occurrences starting 03/20/2022 until 04/19/2023 [facility] Work Phone: Comment on above: 1 Occurrences starting 03/20/2022 until 04/19/2023 End: 04-19-2023 Ct angiography chest w/contrast/noncontrast CTA CHEST (NONGATED) W IVCON Radiology Routine 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, abdominal (HCC) 1 Occurrences starting 03/20/2022 until 04/19/2023 [facility] Work Phone: Comment on above: 1 Occurrences starting 03/20/2022 until 04/19/2023 End: 10-20-2024 CTA Abdominal vessels and Pelvis vessels W contrast IV CTA ABD/PEL W IVCON Radiology Routine Abdominal aortic aneurysm (AAA) without rupture, unspecified part (HCC) Dissection of thoracoabdominal aorta (HCC) 1 Occurrences starting 09/21/2023 until 10/20/2024 [facility] Work Phone: Comment on above: 1 Occurrences starting 09/21/2023 until 10/20/2024 End: 10-20-2024 CTA Chest vessels WO and W contrast IV CTA CHEST (NONGATED) WO/W IVCON Radiology Routine Thoracic aortic aneurysm without rupture, unspecified part (HCC) Dissection of descending aorta (HCC) 1 Occurrences starting 09/21/2023 until 10/20/2024 [facility] Work Phone: Comment on above: 1 Occurrences starting 09/21/2023 until 10/20/2024 ENTERIC BACTERIAL PA IVAN BY PCR ENTERIC BACTERIAL PANEL BY PCR Lab Routine Diarrhea, unspecified type Ordered: 01/12/2023 [facility] Work Phone: Comment on above: Ordered: 01/12/2023 FECAL LACTOFERRIN/LEUKOCYTES FECAL LACTOFERRIN/LEUKOCYTES Lab Routine Diarrhea, unspecified type Ordered: 01/12/2023 [facility] Work Phone: Comment on above: Ordered: 01/12/2023 Giardia lamblia+Cryptosporidium sp Ag [Presence] in Stool by Immunoassay CRYPTOSPORIDIUM AND GIARDIA ANTIGENS BY EIA Microbiology Routine Diarrhea, unspecified type Ordered: 01/12/2023 [facility] Work Phone: Comment on above: Ordered: 01/12/2023 End: 09-05-2023 KALI SCREENING KALI SCREENING Radiology Routine Encounter for screening mammogram for breast cancer 1 Occurrences starting 08/06/2022 until 09/05/2023 [facility] Work Phone: Comment on above: 1 Occurrences starting 08/06/2022 until 09/05/2023 Microscopic urinalysis [facility] Organism count, microscopic method [facility] End: 10-09-2024 OXIMETRY WITH AMBULATION OXIMETRY WITH AMBULATION PFT Routine Hypoxemia 1 Occurrences starting 09/10/2023 until 10/09/2024 [facility] Work Phone: Comment on above: 1 Occurrences starting 09/10/2023 until 10/09/2024 End: 02-15-2026 OXIMETRY WITH AMBULATION OXIMETRY WITH AMBULATION PFT Routine Acute and chronic respiratory failure with hypoxia (HCC) 1 Occurrences starting 01/16/2025 until 02/15/2026 [facility] Work Phone: Comment on above: 1 Occurrences starting 01/16/2025 until 02/15/2026 Patient Education [facility] Work Phone: Patient referral [facility] Work Phone: Urine culture [facility] Urine microscopy: epithelial cells [facility] Urine microscopy: re d cells [facility] White blood cell count [facility] End: 10-07-2024 XR Chest PA and Lateral XR CHEST 2V FRONTAL/LAT Radiology Routine Bacterial pneumonia 1 Occurrences starting 09/08/2023 until 10/07/2024 [facility] Work Phone: Comment on above: 1 Occurrences starting 09/08/2023 until 10/07/2024 XR Chest PA and Lateral XR CHEST 2V FRONTAL/LAT Radiology Routine Bacterial pneumonia 09/08/2023 3:13 PM EDT [facility] Work Phone: End: 10-08-2024 XR Chest PA and Lateral XR CHEST 2V FRONTAL/LAT Radiology Routine Infiltrate noted on imaging study 1 Occurrences starting 09/09/2023 until 10/08/2024 [facility] Work Phone: Comment on above: 1 Occurrences starting 09/09/2023 until 10/08/2024 [facility] Immunizations Immunization Date Immunization Notes Care Provider [facility] 10-24-2024 zoster vaccine recombinant Jalyn Smith MD Work Phone: [facility] 09-07-2024 pneumococcal conjuga te (PCV20) vaccine, 20 valent (PREVNAR 20) Jalyn Smith MD Work Phone: [facility] 2024 respiratory syncytia l virus (RSV) vaccine, bivalent (ABRYSVO) Jalyn Smith MD Work Phone: [facility] 2024 zoster vaccine recombinant Jalyn Smith MD Work Phone: [facility] 03-09-2024 COVID-19 vaccine, ag e 12+ yr ([employer]-BIONTGELI COMIRNATY) Jalyn Smith MD Work Phone: [facility] 03-09-2024 influenza, high dose seasonal, preservative-free Jalyn Smith MD Work Phone: [facility] 03-09-2024 influenza virus vacc ine, unspecified formulation Yaniv Todd MD Work Phone: [facility] 03-20-2022 COVID-19 booster vaccine, age 12+ yr, bivalent (PFIZER-BIONTECH) Jalyn Smith MD Work Phone: [facility] 03-20-2022 influenza, high-dose , quadrivalent vaccine (FLUZONE HIGH DOSE QUADRIVALENT) Jalyn Smith MD Work Phone: [facility] 03-20-2022 influenza virus vacc ine, unspecified formulation Zackery Mayfield MD Work Phone: [facility] 08-30-2021 tetanus toxoid, redu kaur diphtheria toxoid, and acellular pertussis vaccine, adsorbed NA Rodríguez PA-C Work Phone: [facility] 07-30-2021 Covid (Moderna) Dr. Jalyn Smith Work Phone: [facility] 08-02-2020 COVID-19 vaccine, fu ll dose (MODERNA) NA Rodríguez PA-C Work Phone: [facility] 07-05-2020 COVID-19 vaccine, fu ll dose (MODERNA) NA Rodríguez PA-C Work Phone: [facility] Work Phone: 06-25-2020 Covid (Moderna) Dr. Jalyn Smith Work Phone: [facility] 06-29-2019 influenza, high dose seasonal, preservative-free NA Rodríguez PA-C Work Phone: [facility] 06-19-2016 influenza, high dose seasonal, preservative-free NA Rodríguez PA-C Work Phone: [facility] 06-19-2016 pneumococcal conjuga te vaccine, 13 valent NA Rodríguez PA-C Work Phone: [facility] 03-07-2015 influenza, high dose seasonal, preservative-free NA Rodríguez PA-C Work Phone: [facility] 03-09-2014 influenza, high dose seasonal, preservative-free NA Rodríguez PA-C Work Phone: [facility] 03-09-2014 pneumococcal polysaccharide vaccine, 23 valent NA Rodríguez PA-C Work Phone: [facility] 02-25-2013 influenza virus vacc ine, unspecified formulation NA Rodríguez PA-C Work Phone: [facility] Payers Date Payer Category Payer Self-pay [id number] 2021 Medicare [employer] MEDICARE [employer] MEDICARE PPO [id number] 2021-Present [phone] [place], [place] [id number] PPO [id number] 2018 Medicare [id number] 2018 Medicare (Managed Care) [employer] BEATA [id number] 2018 Medicare [id number] Unknown [id number] Unknown [id number] Social History Date Type Detail Facility Start: 04-28-2014 End: 03-20-2022 Tobacco smoking status NHIS Ex-smoker [facility] Start: 08-30-1966 End: 01-29-2012 History of tobacco use Current smoker [facility] Start: 08-30-1966 End: 01-29-2012 History of tobacco use Cigarette Smoker [facility] Start: 08-30-2021 End: 01-06-2024 Alcohol intake Current non-drinker of alcohol (finding) [facility] Start: 08-17-2020 History SDOH Alcohol Frequency 2 [facility] Start: 08-17-2020 History SDOH Alcohol Std Drinks 1 [facility] Start: 08-17-2020 History SDOH Social Connections Phone 3 [facility] Start: 08-17-2020 History SDOH Social Connections Living 4 [facility] Start: 08-17-2020 History SDOH Financial 5 [facility] Start: 08-17-2020 Education 12 [facility] Start: 04-28-2014 End: 03-20-2022 Tobacco Comment Father smoked in childhood home. Spouse smoked briefly after marriage. [facility] [facility] Start: 1945 Sex Assigned At Female C [facility] Start: 08-26-2021 End: 03-20-2022 Exposure to SARS-CoV-2 (event) Not sure [facility] Work Phone: Start: 09-26-2021 End: 08-28-2023 Tobacco smoking status AKIS Unknown if ever smoked [facility] Start: 04-28-2014 End: 12-12-2024 Cigarettes smoked current (pack per day) - Reported 0.5 [facility] Start: 04-28-2014 End: 03-20-2022 Tobacco use and exposure Smokeless tobacco non-user [facility] Work Phone: Start: 08-17-2020 End: 12-12-2024 Social connection and isolation panel [facility] Do you belong to any clubs or organizations such as anabaptist groups, unions, fraternal or athletic groups, or school groups? No [facility] Are you now , , , , never or living with a partner? [facility] How often to you hav e a drink containing alcohol? Monthly or less [facility] How many standard dr inks containing alcohol do you have on a typical day? 1 or 2 [facility] How often do you hav e 6 or more drinks on 1 occasion? Less than monthly [facility] Start: 05-09-2012 How hard is it for y ou to pay for the very basics like food, housing, medical care, and heating Not hard at all [facility] Do you feel stress - tense, restless, nervous, or anxious, or unable to sleep at night because your mind is troubled all the time - these days [OSQ] Only a little [facility] (I/We) worried wheth er (my/our) food would run out before (I/we) got money to buy more. Never true [facility] Start: 07-16-2019 Gender identity Identifies as female gender (finding) [facility] How often do you hav e 6 or more drinks on 1 occasion? Never [facility] Do you feel stress - tense, restless, nervous, or anxious, or unable to sleep at night because your mind is troubled all the time - these days [OSQ] To some extent [facility] Start: 08-15-2024 End: 09-04-2024 Sex Female (finding) [facility] Medical Equipment Procedure Code Equipment Code Equipment Origin al Text Equipment Identifier Dates Test blood sugar(s) 2 times daily. Dx: Type 2 DM - Controlled E11.9 Insulin: No [id number], [id number] Start: 08-16-2021 Comment on above: Test blood [...] [AUDIT-C] 0 09/01/19 25 3:53 PM EDT User, Yumiko [facility] 2024 Within the last year , have you been humiliated or emotionally abused in other ways by your partner or ex-partner? No 2024 3:53 PM EDT User, Retat No [facility] 2024 Within the last year , have you been afraid of your partner or ex-partner? No 2024 3:53 PM EDT User, Retat No [facility] 2024 Within the last year , have you been raped or forced to have any kind of sexual activity by your partner or ex-partner? No 2024 3:53 PM EDT User, Retat No [facility] 2024 Within the last year , have you been kicked, hit, slapped, or otherwise physically hurt by your partner or ex-partner? No 2024 3:53 PM EDT User, Retat No [facility] 2024 How often to you hav e a drink containing alcohol? Never 2024 3:53 PM EDT User, Retat Never [facility] 2024 Functional status Patient does n ot drink 2024 3:53 PM EDT User, Retat Patient does not drink [facility] 2024 How often do you hav e 6 or more drinks on 1 occasion? Never 2024 3:53 PM EDT User, Minniehart Never [facility] 01-02-2023 Functional status Chair [facility] Work Phone: 12-15-2022 Functional status Ambulates [facility] Work Phone: 08-09-2021 Functional status Activity Abili ty With Assist of 1 [facility] Work Phone: 08-08-2021 Functional status Ambulates [facility] Work Phone: 07-25-2021 Functional status Bedrest [facility] Work Phone: 12-30-2018 Are you deaf, or do you have serious difficulty hearing No 12/30/2018 5:00 PM EDT Gonzalez Chauhan (Rn), RN No [facility] 12-30-2018 Are you blind, or do you have serious difficulty seeing, even when wearing glasses No 12/30/2018 5:00 PM EDT Gonzalez Chauhan (Rn), RN No [facility] 12-30-2018 Do you have serious difficulty walking or climbing stairs Yes 12/30/2018 5:00 PM EDT Gonzalez Chauhan (Rn), RN Yes [facility] 12-30-2018 Do you have difficul ty dressing or bathing Yes 12/30/2018 5:00 PM EDT Gonzalez Chauhan (Rn), RN Yes [facility] 12-30-2018 Because of a physica l, mental, or emotional condition, do you have difficulty doing errands alone such as visiting a physician's office or shopping Yes 12/30/2018 5:00 PM EDT Gonzalez hCauhan (Rn), RN Yes [facility] Mental Status Date Assessment Result Facility 01-02-2023 Cognitive function Voice/Name [facility] Work Phone: 01-01-2023 Cognitive function Appropriate;Cooperativ e [facility] Work Phone: 12-15-2022 Cognitive function Voice/Name [facility] Work Phone: 12-10-2022 Cognitive function Level Of Cons ciousness Awake;Alert;Appropriate [facility] Work Phone: 08-09-2021 Cognitive function Voice/Name [facility] Work Phone: 07-25-2021 Cognitive function Voice/Name [facility] Work Phone: 12-30-2018 Because of a physica l, mental, or emotional condition, do you have serious difficulty concentrating, remembering, or making decisions Yes 12/30/2018 5:00 PM EDT Gonzalez Chauhan (Rn), RN Yes [facility] Clinical Notes 02-09-2019 to 03-22-2025 Telephone Encounter - Casandra Rasheed MA - 01/30/2025 3:17 PM EDTTelephone Encounter - Casandra Rasheed MA - 01/30/2025 3:17 PM EDTBkilo Juhi Greene - 01/20/2025 9:52 AM EDT Note Date & Type Note Facility 03-22-2025 Note HNO ID: [id number] Author: WILLIAM JOSE NAQVI Service: ? Author Type: Respiratory Therapist Type: [...] Carrier Forehead 30 Wheeled Walker Comment: NAME: Karen JOSE Vargas PATIENT NAME: Kandi Correia DATE: March 22, 2025 TIME: 2:59 PM OXIMETRY [facility] 03-22-2025 Note HNO ID: [id number] Author: JALYN SMITH MD Service: ? Author [...] PCP - General (Family Medicine) Marjan Reid APRN.CNP as R&D Lab Technician (Family Medicine) Casandra Kinsey APRN.CNP as R&D Lab Technician (Family Medicine) Dr Tompkins, optometry and Dr. [...] BiPAP for sleep. - Denies seeing a podiatric medicine doctor. - Denies changes in bowel habits, hematochezia, melena, dysuria, urinary frequency, or hematuria. COPD: - On 3L O2 at home, 2L when going out. - Takes Mucinex regularly. - Follow-up with Dr. Mayfield at 1430 today for pulmonary function testing to assess continued need for home oxygen. Anxiety and Depression: - Feels "stressed" by everyday life and worries about family, [...] new lancet device. - Last A1c was "pretty good." Lifestyle: - Exercises about 10 minutes a [...] pain, (-) fall (more content not included)... [facility] 03-22-2025 Note HNO ID: [id number] Author: ?, ?, ? Service: ? Author [...] Contacted: Unable or unnecessary to reach patient: [employer] message sent HCC related Updated appointment notes Navigation Signature: Juhi Escalanteagnieszka [facility] March 22, 2025 8:15 AM [facility] 03-22-2025 Note Patient Outreach (YESENIA TNAV) KANDI CORREIA ([id number]) 1945 F Date Time Provider Department 03/22/25 [...] HCC related Updated appointment notes Navigation Signature: Juhioswald Escalanteagnieszka [facility] March 22, 2025 8:15 AM Allergies As of Date: 03/22/2025 Noted Allergy Reaction LISINOPRIL 12/26/2016 14 - Other: See Comments Comments: cough LYRICA (PREGABALIN) 01/13/2019 7 - Swelling Date Reviewed: 03/08/2025 Reviewed by: Oral Perdue APRN.CORROSION CONTROL ENGINEER - Fully Assessed Reason for Visit: Population Health Navigation Outreach [3910] Cmt: Ann Dotson Prescriptions as of 03/22/2025 - metoprolol succinate [...] two times a day with meals. 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 [facility] 03-08-2025 Note HNO ID: [id number] Author: ORAL PERDUE APRN.CORROSION CONTROL ENGINEER Service: ? 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 [facility] 01-30-2025 Telephone encounter Note NOV none JERRELL [...] notify patient. Please review. Casandra Rasheed MA [facility] 01-30-2025 Miscellaneous Notes NOV none [facility] 01/06/24 Patient electronically sent a request for [...] Casandra Rasheed MA documented in this encounter [facility] 01-25-2025 Telephone encounter Note Mailed as requested. [facility] 01-25-2025 Miscellaneous Notes Mailed as requested. done Type of form: AEP confirming she has medical equipment in case of power outage Form received via walk in When form is completed, Mail form to envelope provider Form has been forwarded to Physician Desk: Dr. Smith Still a few questions on form to answer. Kalpana Sharif LPN documented in this encounter [facility] 01-24-2025 Telephone encounter Note done [facility] 01-24-2025 Telephone encounter Note Type of form: AEP confirming she has medical equipment in case of power outage Form received via walk in When form is completed, Mail form to envelope provider Form has been forwarded to Physician Desk: Dr. Smith Still a few questions on form to answer. Kalpana Sharif LPN [facility] 01-20-2025 Note HNO ID: [id number] Author: ?, ?, ? Service: ? Author Type: ? Type: Progress Notes Filed: 01/20/2025 09:55 Note Text: POPULATION HEALTH NAVIGATION OUTREACH Action/FYI Patient outreach for HCCs HM due; COLETTE Lvm and sent mcm Reason for Outreach Care Gap/HCC or Scheduling Wellness Visits Care Gaps due: KED Patient Contacted: Unable or unnecessary to reach patient: Left message [employer] message sent HCC related Navigation Signature: Juhi Willard Jc January 20, 2025 9:52 AM [facility] 01-20-2025 History of Present illness Narrative POPULATION HEALTH NAVIGATION OUTREACH Action/FYI Patient outreach for HCCs HM due; COLETTE Lvm and sent mcm Reason for Outreach Care Gap/HCC or Scheduling Wellness Visits Care Gaps due: COLETTE Patient Contacted: Unable or unnecessary to reach patient: Left message [employer] message sent HCC related Navigation Signature: Juhi Greene January 20, 2025 9:52 AM documented in this encounter [facility] 01-20-2025 Note Patient Outreach (NE TNAV) KANDI CORREIA ([id number]) 1945 F Date Time Provider Department 01/20/25 [...] or unnecessary to reach patient: Left message [employer] message sent HCC related Navigation Signature: Juhi [...] two times a day with meals. - tngeahpjqs-nztsgvxx-rcijlufmxn (BREZTRI AEROSPHERE) 160-9-4.8 mcg/actuation HFA aerosol inhaler [...] this patient by: PATIENT Maria Alejandra Nolan (Deputy Sheriff Custody) Problem List As Of Date 01/20/2025 Noted [...] Encounter Status:Closed by JUHI VILLATORO on 01/20/25 [facility] 01-09-2025 Telephone encounter Note Faxed back as requested. [facility] 01-09-2025 Miscellaneous Notes Faxed back as requested. [...] the procedure. Karson requests call back at [phone]. Francoise Grady RN documented in this encounter [facility] 01-09-2025 Telephone encounter Note done [facility] 01-09-2025 Telephone encounter Note On desk for review. [facility] 01-09-2025 Telephone encounter Note Notified daughter. She will have Dr Harman's office send form. [facility] 01-09-2025 Telephone encounter Note I should be able to [facility] 01-09-2025 Telephone encounter Note Daughter (Karson) calls [...] the procedure. Karson requests call back at [phone]. Francoise Grady RN T [facility] 12-21-2024 Note HNO ID: [id number] Author: ?, ?, ? Service: ? Author Type: ? Type: Progress Notes Filed: 12/21/2024 10:12 Note Text: POPULATION HEALTH NAVIGATION OUTREACH Action/FYI Patient outreach for HCCs HM due; KED (cmp) Reason for Outreach Care Gap/HCC or Scheduling Wellness Visits Care Gaps due: KED Patient Contacted: Unable or unnecessary to reach patient: Left message [employer] message sent HCC related Navigation Signature: Juhi Greene December 21, 2024 10:10 AM [facility] 12-21-2024 History of Present illness Narrative POPULATION HEALTH NAVIGATION OUTREACH Action/FYI Patient outreach for HCCs HM due; KED (cmp) Reason for Outreach Care Gap/HCC or Scheduling Wellness Visits Care Gaps due: KED Patient Contacted: Unable or unnecessary to reach patient: Left message [employer] message sent HCC related Navigation Signature: Juhi Greene December 21, 2024 10:10 AM documented in this encounter [facility] 12-21-2024 Note Patient Outreach (YESENIA RICK) KANDI CORREIA ([id number]) 1945 F Date Time Provider Department 12/21/24 JALYN SMITH During your visit today, we recorded the following information about you: Juhi Villatoro 12/21/2024 10:12 AM Signed POPULATION HEALTH NAVIGATION OUTREACH Action/FYI Patient outreach for HCCs HM due; COLETTE ([facility]) Reason for Outreach Care Gap/HCC or Scheduling Wellness Visits Care Gaps due: KED Patient Contacted: Unable or unnecessary to reach patient: Left message [employer] message sent HCC related Navigation Signature: Juhi Greene December 21, 2024 10:10 AM Allergies As of Date: 12/21/2024 Noted Allergy Reaction LISINOPRIL 12/26/2016 14 - Other: See Comments Comments: cough LYRICA (PREGABALIN) 01/13/2019 7 - Swelling Date Reviewed: 09/07/2024 Reviewed by: Kalpana Sharif LPN - Fully Assessed Reason for Visit: Population Health Navigation Outreach [3910] Cmt: [facility] Prescriptions as of 12/21/2024 - ovdoltiwrp-jvzplanp-kkrdspffkx (BREZTRI AEROSPHERE) 160-9-4.8 mcg/actuation HFA aerosol inhaler [...] this patient by: PATIENT Maria Alejandra Nolan (Deputy Sheriff Custody) Problem List As Of Date 12/21/2024 Noted [...] Encounter Status:Closed by JUHI VILLATORO on 12/21/24 [facility] 12-15-2024 Telephone encounter Note Clearance forms signed and faxed to Hemal Marie at [phone]. Transmission complete. Encounter closed, [facility] 12-15-2024 Miscellaneous Notes Clearance forms signed and faxed to Hemal Marie at [phone]. Transmission complete. Encounter closed, documented in this encounter [facility] 12-02-2024 History of Present illness Narrative Radiology [...] PATIENT PRESENTS WITH AN IMPLANTABLE OR ATTACHED CAMPUS EXECUTIVE DIRECTOR: No RADIOLOGY DEPARTMENT: CT; Exam(s) Completed: CTA Abdomen Pelvis PERIPHERAL IV DATA: Site assessment: Clean,Dry and Intact, Site disposition Discontinued SIGNED BY: RT Venice(Martin) December 02, 2024 1:49 PM documented in this encounter [facility] 12-02-2024 Note HNO ID: [id number] Author: ROLF GUZMAN RT(R) Service: Radiology Author Type: Technologist Type: Progress [...] PATIENT PRESENTS WITH AN IMPLANTABLE OR ATTACHED CAMPUS EXECUTIVE DIRECTOR: No RADIOLOGY DEPARTMENT: CT; Exam(s) Completed: CTA Abdomen Pelvis PERIPHERAL IV DATA: Site assessment: Clean,Dry and Intact, Site disposition Discontinued SIGNED BY: RT Venice(R) December 02, 2024 1:49 PM [facility] 12-02-2024 Nurse Note Radiology Service Progress [...] DATE: December 02, 2024 TIME: 1:36 PM [facility] 12-02-2024 Nurse Note Radiology Service Progress [...] TIME: 1:36 PM documented in this encounter [facility] 11-30-2024 Telephone encounter Note RX pended for mail order. JERRELL 01/06/24 [facility] 11-30-2024 Miscellaneous Notes RX pended for mail order. JERRELL 01/06/24 documented in this encounter [facility] 11-28-2024 Telephone encounter Note The breztri was being ordered by pulmonology. [facility] 11-28-2024 Miscellaneous Notes The breztri was being ordered by pulmonology. documented in this encounter [facility] 11-24-2024 Note HNO ID: [id number] Author: ?, ?, ? Service: ? Author [...] MyChart message sent Navigation Signature: Juhi Greene November 24, 2024 12:50 PM [facility] 11-21-2024 Note HNO ID: [id number] Author: ?, ?, ? Service: ? Author [...] Juhi Greene November 21, 2024 10:28 AM [facility] 11-21-2024 History of Present illness Narrative POPULATION [...] 2024 10:28 AM documented in this encounter [facility] 11-21-2024 Note Patient Outreach (NE TNAV) KANDI CORREIA ([id number]) 1945 F Date Time Provider Department 11/21/24 [...] Updated appointment notes Navigation Signature: Juhi Willard [facility] November 21, 2024 10:28 AM Sudheer JcJuhi 11/24/2024 12:50 PM Signed POPULATION HEALTH NAVIGATION OUTREACH Action/FYI Patient returned myc message. Abraham sent back message to help schedule KED. Reason for Outreach Returned Call/MyChart Patient Contacted: Spoke to patient/parent/or legal guardian Patient identified by name and date of : Yes Returned call/MyChart actions taken: MyChart message sent Navigation Signature: Juhi Willard [facility] November 24, 2024 12:50 PM Allergies As [...] 1 tablet by mouth once daily. 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 [facility] 11-04-2024 Telephone encounter Note Called patient and discussed. She is going to contact office to see if maybe can follow up as a VV after CT scan. [facility] 11-04-2024 Miscellaneous Notes Called patient and discussed. She is going to contact office to see if maybe can follow up as a VV after CT scan. documented in this encounter [facility] 11-01-2024 Telephone encounter Note Please see pt message Jojo Shah MA [facility] 11-01-2024 Miscellaneous Notes Please see pt message Jojo Shah MA documented in this encounter [facility] 10-18-2024 Telephone encounter Note See pt message. Rx [facility] Re[facility], not [facility]. Rx pending with correct pharmacy. Aj Hermosillo LPN [facility] 10-18-2024 Miscellaneous Notes See pt message. Rx for Requip went to [facility], not [facility]. Rx pending with correct pharmacy. Aj Hermosillo LPN documented in this encounter [facility] 10-10-2024 Note HNO ID: [id number] Author: KATHERINE GÓMEZ RN Service: ? Author [...] Gómez RN October 10, 2024 12:26 PM [facility] 10-10-2024 History of Present illness Narrative Value [...] 2024 12:26 PM documented in this encounter [facility] 10-10-2024 Note Patient Outreach (AM BC) KANDI CORREIA ([id number]) 1945 F Date Time Provider Department 5/5/25 KATHERINE GÓMEZ [facility] During your visit today, we recorded the [...] LPN - Fully Assessed Reason for Visit: Travel Coordinator- Other [3613] Prescriptions as of 10/10/2024 - [...] 1 tablet by mouth once daily. - ptnglqekwg-eusjztlb-joltqazigd (BREZTRI AEROSPHERE) 160-9-4.8 mcg/actuation HFA aerosol inhaler [...] this patient by: PATIENT Maria Alejandra Nolan (Deputy Sheriff Custody) Problem List As Of Date 10/10/2024 Noted [...] Status:Closed by KATHERINE GÓMEZ RN on 10/10/24 [facility] 10-05-2024 Telephone encounter Note See [employer] message. Natalie Gonzalez MA [facility] 10-05-2024 Miscellaneous Notes See minnieRegenobody Holdingsjonathan message. Natalie Gonzalez MA documented in this encounter [facility] 10-03-2024 Telephone encounter Note Prescription Refill Information [...] Hermosillo LPN October 03, 2024 6:24 PM [facility] 10-03-2024 Miscellaneous Notes Prescription Refill Information The [...] 2024 6:24 PM documented in this encounter [facility] 10-03-2024 Telephone encounter Note Prescription Refill Information [...] Burrell LPN October 03, 2024 2:19 PM [facility] 10-03-2024 Miscellaneous Notes Prescription Refill Information The [...] 2024 2:19 PM documented in this encounter [facility] 10-03-2024 Telephone encounter Note Prescription Refill Information [...] Burrell LPN October 03, 2024 2:18 PM [facility] 10-03-2024 Miscellaneous Notes Prescription Refill Information The [...] 2024 2:18 PM documented in this encounter [facility] 09-21-2024 Telephone encounter Note Prescription Refill Information [...] Sharif LPN September 21, 2024 12:49 PM [facility] 09-21-2024 Miscellaneous Notes Prescription Refill Information The [...] 2024 12:49 PM documented in this encounter [facility] 09-07-2024 Note HNO ID: [id number] Author: JALYN SMITH MD Service: ? Author Type: Physician Type: Progress Notes Filed: 09/07/2024 15:25 Note Text: Patient presents with: 6 Month Exam ER F/U HPI: Patient presents today for office visit for follow up. HOSPITAL/ER FOLLOW UP: Reason for visit: abd pain Which facility: [facility] Date of visit: 09/05/24 Diagnosis: abd pain [...] Take 1 tablet by mouth once daily. iduvxhqkpr-umjscpvj-gkxerdmenk (BREZTRI AEROSPHERE) 160-9-4.8 mcg/actuation HFA aerosol inhaler [...] HISTORY Diagnosis Date AAA (abdominal aortic aneurysm) (FORM[facility]) Abdominal aortic aneurysm (AAA) without rupture ([facility]) 09/09/2023 Aneurysm of left common iliac artery ([facility]) 11/05/2023 Aneurysm, thoracic aortic ([facility]) Arthritis Centrilobular emphysema ([facility]) 10/01/2022 Chronic pain Chronic respiratory failure with hypoxia ([facility]) 05/24/2019 Chronic venous stasis dermatitis COPD (chronic obstructive pulmonary disease) ([facility]) Degenerative disc disease Depression Descending thoracic aortic dissection ([facility]) 12/22/[address] Perry (vascular) Dissection of thoracoabdominal aorta ([facility]) 09/21/2023 Fibromyalgia HTN (hypertension) OA (osteoarthritis) MICHEL [...] status: Former Current (more content not included)... [facility] 09-07-2024 History of Present illness Narrative Patient presents with: 6 Month Exam ER F/U HPI: Patient presents today for office visit for follow up. HOSPITAL/ER FOLLOW UP: Reason for visit: abd pain Which facility: [facility] Date of visit: 09/05/24 Diagnosis: abd pain [...] Take 1 tablet by mouth once daily. myltdlqell-jahzafps-mrdvseibjr (BREZTRI AEROSPHERE) 160-9-4.8 mcg/actuation HFA aerosol inhaler [...] Chronic pain Chronic respiratory failure with hypoxia ([facility]) 05/24/2019 Chronic venous stasis dermatitis COPD (chronic obstructive pulmonary disease) (HCC) Degenerative disc disease Depression Descending thoracic aortic dissection ([facility]) 12/22/[address] Perry (vascular) Dissection of thoracoabdominal aorta ([facility]) 09/21/2023 Fibromyalgia HTN (hypertension) OA (osteoarthritis) MICHEL (obstructive sleep apnea) not on CPAP Restless leg syndrome Thoracic aortic aneurysm ([facility]) 12/23/2018 PAST SURGICAL HISTORY Procedure Laterality Date [...] Jalyn Smith MD documented in this encounter [facility] 09-04-2024 Radiology Diagnostic study note [facility] Imaging Services [address] [place] [address] Abdomen/Pelvis W IV Cont ONLY MR#: [id number] Acct: [id number] Name: KANDI CORREIA Rep #: [id number] : 1945 F 79 From: Tana Wilson MD PCP: Dr. Jalyn Smith MD Status: REG E R Study:Abdomen/Pelvis W IV Cont ONLY Date of E xam: 09/04/24 Exam# [id number] Ordering Dr: Cynthia Dozier DO PROCEDURE: ABDOMEN/PELVIS [...] for stability. 3. Mild hepatomegaly. Reading Location: [id number] CC: Dr. Viraj Dozier DO; Dr. Jalyn Smith MD ~ Health Promotion Officer: [facility] 2024 Telephone encounter Note Daughter informed. Aurelia Rose MA [facility] 2024 Miscellaneous Notes Daughter informed. Aurelia Rose MA yes Patient's daughter calls and states that patient received the Shingrix and RSV vaccination at [facility]. Pharmacy is recommending patient get a pneumonia and another COVID vaccination. Patient has appointment with pharmacy next Thursday afternoon. Daughter asking if PCP recommends this as well? Please review and advise, Susana Fisher RN documented in this encounter [facility] 2024 Telephone encounter Note yes [facility] 2024 Telephone encounter Note Patient's daughter calls and states that patient received the Shingrix and RSV vaccination at [facility]. Pharmacy is recommending patient get a pneumonia and another COVID vaccination. Patient has appointment with pharmacy next Thursday afternoon. Daughter asking if PCP recommends this as well? Please review and advise, Susana Fisher RN [facility] 08-26-2024 Note HNO ID: [id number] Author: ?, ?, ? Service: ? Author [...] Juhi Greene August 26, 2024 12:09 PM [facility] 08-25-2024 Note HNO ID: [id number] Author: ?, ?, ? Service: ? Author [...] Juhi Greene August 25, 2024 11:40 AM [facility] 08-25-2024 History of Present illness Narrative POPULATION HEALTH NAVIGATION OUTREACH Action/FYI Patient is due for Wellness check Reason for Outreach Care Gap/HCC or Scheduling Wellness Visits Care Gaps due: Medicare Annual Wellness Visit Patient Contacted: Unable or unnecessary to reach patient: MyChart message sent HCC related Updated appointment notes Navigation Signature: Juhi Greene August 25, 2024 11:40 AM documented in this encounter [facility] 08-25-2024 Note Patient Outreach (NE TNAV) TAYLORKANDI ([id number]) 1945 F Date Time Provider Department 08/25/24 JALYN SMITH During your visit today, we recorded the following information about you: Juhi Villatoro 08/25/2024 11:45 AM Signed POPULATION HEALTH NAVIGATION OUTREACH Action/FYI Patient is due for Wellness check Reason for Outreach Care Gap/HCC or Scheduling Wellness Visits Care Gaps due: Medicare Annual Wellness Visit Patient Contacted: Unable or unnecessary to reach patient: [employer] message sent HCC related Updated appointment notes Navigation Signature: Juhi Greene August 25, 2024 11:40 AM Jhui Villatoro 08/26/2024 12:10 PM Signed POPULATION HEALTH NAVIGATION OUTREACH Action/FYI Patient replied via [employer] inquiring what a wellness check is, sent [...] Navigation Outreach [[id number]] Cmt: Ann Work bench Nila Prescriptions as of 08/26/2024 - oxybutynin XL [...] 1 tablet by mouth once daily. - sylhbhcdbj-bmqzthwf-ewrfklqfgr (BREZTRI AEROSPHERE) 160-9-4.8 mcg/actuation HFA aerosol inhaler [...] this patient by: PATIENT Maria Alejandra Nolan (Deputy Sheriff Custody) Problem List As Of Date 08/25/2024 Noted [...] of thoracoabdominal a (more content not included)... [facility] 08-03-2024 Telephone encounter Note Prescription Refill Information [...] 50mg #90 with 1 refill sent to [facility] on 06/09/24. Pt not due for refill. MC message to pt advising of the same. Gabapentin 100mg #270 with 1 refill sent to [facility] on 05/17/24. Pt not due for refill. MC message to pt advising of the same. Aj Hermosillo LPN August 03, 2024 2:58 PM [facility] 08-03-2024 Miscellaneous Notes Prescription Refill Information The [...] 50mg #90 with 1 refill sent to [facility] on 06/09/24. Pt not due for refill. MC message to pt advising of the same. Gabapentin 100mg #270 with 1 refill sent to [facility] on 05/17/24. Pt not due for refill. MC message to pt advising of the same. Aj Hermosillo LPN August 03, 2024 2:58 PM documented in this encounter [facility] 06-09-2024 Telephone encounter Note Prescription Refill Information [...] Holloway LPN June 09, 2024 11:45 AM [facility] 06-09-2024 Miscellaneous Notes Prescription Refill Information The [...] 2024 11:45 AM documented in this encounter [facility] 05-17-2024 Telephone encounter Note Prescription Refill Information [...] Hermosillo LPN May 17, 2024 11:24 AM [facility] 05-17-2024 Miscellaneous Notes Prescription Refill Information The [...] 2024 11:24 AM documented in this encounter [facility] 05-17-2024 Telephone encounter Note [facility] 01/06/24 Patient phones requesting refills as follows: Requested Prescriptions Pending Prescriptions Disp Refills rvlfbvygzl-cwcpnnvc-gliqoqqhjv (BREZTRI AEROSPHERE) 160-9-4.8 mcg/actuation HFA aerosol inhaler [Pharmacy Med Name: BREZTRI AEROSPHERE INHALER] 32.1 g 3 Sig: Inhale 2 Puffs as instructed two times a day. Please review and advise. Staci Zamorano LPN [facility] 05-17-2024 Miscellaneous Notes [facility] 01/06/24 Patient phones requesting refills as follows: Requested Prescriptions Pending Prescriptions Disp Refills brinfvjgiq-ygebpypv-tvipbdydbw (BREZTRI AEROSPHERE) 160-9-4.8 mcg/actuation HFA aerosol inhaler [Pharmacy Med Name: BREZTRI AEROSPHERE INHALER] 32.1 g 3 Sig: Inhale 2 Puffs as instructed two times a day. Please review and advise. Staci Zamorano LPN documented in this encounter [facility] 04-28-2024 Note HNO ID: [id number] Author: SELENE ANAYA RN Service: ? Author Type: Registered Nurse Type: Progress Notes Filed: 04/28/2024 15:59 Note Text: [facility] Telephonic Outreach Provider Action/FYI Contacted for: Routine Telephonic Outreach Contact made with patient: No, left message. Selene Anaya RN April 28, 2024 3:58 PM [facility] 04-28-2024 History of Present illness Narrative [facility] Telephonic Outreach Provider Action/FYI Contacted for: Routine Telephonic Outreach Contact made with patient: No, left message. Selene Anaya RN April 28, 2024 3:58 PM CD Telephonic Outreach Provider Action/FYI Contacted for: Routine Telephonic Outreach Contact made with patient: No, left message. Selene Anaya RN April 28, 2024 3:20 PM documented in this encounter [facility] 04-28-2024 Note HNO ID: [id number] Author: SELEEN ANAYA RN Service: ? Author Type: Registered Nurse Type: Progress Notes Filed: 04/28/2024 15:20 Note Text: CD Telephonic Outreach Provider Action/FYI Contacted for: Routine Telephonic Outreach Contact made with patient: No, left message. Selene Anaya RN April 28, 2024 3:20 PM [facility] 04-28-2024 Note Patient Outreach (AM [facility]) KANDI CORREIA ([id number]) 1945 F Date Time Provider Department 04/28/24 SELENE ANAYA [facility] During your visit today, we recorded the following information about you: Selene Anaya RN 04/28/2024 3:20 PM Signed [facility] Telephonic Outreach Provider Action/FYI Contacted for: Routine Telephonic Outreach Contact made with patient: No, left message. Selene Anaya RN April 28, 2024 3:20 PM Selene Anaya RN 04/28/2024 3:59 PM Signed [facility] Telephonic Outreach Provider Action/FYI Contacted for: Routine [...] tablets by mouth daily at bedtime. - qdppzfqgyg-jqfrgzha-ndrnhpiyka (BREZTRI) 160-9-4.8 mcg/actuation HFA aerosol inhaler Inhale [...] this patient by: PATIENT Maria Alejandra Nolan (Deputy Sheriff Custody) Problem List As Of Date 04/28/2024 Noted [...] Encounter Status:Closed by SELENE ANAYA on 04/28/24 [facility] 04-14-2024 Telephone encounter Note Pt notified thru MyChart to continue Magnesium. Judy Borrego LPN [facility] 04-14-2024 Miscellaneous Notes Pt notified thru MyChart [...] Magnesium is ok. documented in this encounter [facility] 04-14-2024 Telephone encounter Note Pt notified with results and would like to know if she is to continue to take (1) magnesium daily. This is what she was instructed to do earlier. Please advise pt. .Judy Borrego LPN [facility] 04-14-2024 Telephone encounter Note ----- Message from Casandra Kinsey sent at 04/14/2024 12:42 PM EST ----- Anemia persists but is stable. Magnesium is ok. [facility] 04-11-2024 Telephone encounter Note Last appointment: 09/30/23 Next appointment: 07/02/24 Pharmacy verified in [facility]. Refill(s) requested: Requested Prescriptions Pending Prescriptions Disp Refills fluticasone (FLONASE) 50 mcg/actuation nasal spray [Pharmacy Med Name: Fluticasone Propionate Nasal Suspension 50 MCG/ACT] 32 g 3 Sig: USE 1 SPRAY IN EACH NOSTRIL ONE TIME DAILY Order(s) pended. Please advise. Vera Pollock MA, COMMUNITY HEALTH ADVISOR [facility] 04-11-2024 Miscellaneous Notes Last appointment: 09/30/23 Next appointment: 07/02/24 Pharmacy verified in Epic. Refill(s) requested: Requested Prescriptions Pending Prescriptions Disp Refills fluticasone (FLONASE) 50 mcg/actuation nasal spray [Pharmacy Med Name: Fluticasone Propionate Nasal Suspension 50 MCG/ACT] 32 g 3 Sig: USE 1 SPRAY IN EACH NOSTRIL ONE TIME DAILY Order(s) pended. Please advise. Vera Pollock MA, COMMUNITY HEALTH ADVISOR documented in this encounter [facility] 03-31-2024 Note HNO ID: [id number] Author: SELENE ANAYA RN Service: ? Author Type: Registered Nurse Type: Progress Notes Filed: 03/31/2024 15:17 Note Text: [facility] Telephonic Outreach Provider Action/FYI Contacted for: Routine Telephonic Outreach Contact made with patient: No, left message. Selene Anaya RN March 31, 2024 3:16 PM [facility] 03-31-2024 History of Present illness Narrative [facility] Telephonic Outreach Provider Action/FYI Contacted for: Routine Telephonic Outreach Contact made with patient: No, left message. Selene Anaya RN March 31, 2024 3:16 PM [facility] Telephonic Outreach Provider Action/FYI Contacted for: Routine Telephonic Outreach Contact made with patient: No, left message. Selene Anaya RN March 31, 2024 1:31 PM documented in this encounter [facility] 03-31-2024 Note HNO ID: [id number] Author: SELENE ANAYA RN Service: ? Author Type: Registered Nurse Type: Progress Notes Filed: 03/31/2024 13:32 Note Text: CD Telephonic Outreach Provider Action/FYI Contacted for: Routine Telephonic Outreach Contact made with patient: No, left message. Selene Anaya RN March 31, 2024 1:31 PM [facility] 03-31-2024 Note Patient Outreach (AM [facility]) KANDI CORREIA ([id number]) 1945 F Date Time Provider Department 03/31/24 SELENE ANAYA [facility] During your visit today, we recorded the [...] tablets by mouth daily at bedtime. - lfhqvowkeh-avavooxf-dsasyayhtm (BREZTRI) 160-9-4.8 mcg/actuation HFA aerosol inhaler Inhale [...] this patient by: PATIENT Maria Alejandra Nolan (Deputy Sheriff Custody) Problem List As Of Date 03/31/2024 Noted [...] 03/09/2024 Encounter Status:Closed by SELENE ANAYA on 03/31/24 [facility] 03-29-2024 Telephone encounter Note Kandi from [facility] calling and needs clarification for oxygen. Does she need portable concentrator or tank. Is POC to be continuous? If portable will need the dose. Also need order for stationary tank [facility] 03-29-2024 Miscellaneous Notes Kandi from [facility] calling and needs clarification for oxygen. Does she need portable concentrator or tank. Is POC to be continuous? If portable will need the dose. Also need order for stationary tank documented in this encounter [facility] 03-11-2024 Telephone encounter Note Spoke with patient [...] agreed and verbalized understanding. Aurelia Rose MA [facility] 03-11-2024 Miscellaneous Notes Spoke with patient and [...] anemia? Can reschedule. documented in this encounter [facility] 03-11-2024 Telephone encounter Note No, still needed gi follow up. Appt was made and no showed Reset up Take mag once a day. Recheck labs in one month [facility] 03-11-2024 Telephone encounter Note Has some there [...] hospitalization from the bleeding that she had? [facility] 03-11-2024 Telephone encounter Note Mag is slightly low. Check if taking any mag supplements? Also anemia is stable. Iron is ok. She was referred to gi last year for anemia and blood in the stool. Does not appear she went. Is she willing to see them to rule out gi source of anemia? Can reschedule. [facility] 03-09-2024 History of Present illness Narrative Patient [...] Reason for visit: Abdominal pain Which facility: [facility] Date of visit: 08/28/23 Diagnosis: Pneumonia Testing [...] 3 tablets by mouth daily at bedtime. hfrczbdnem-qpmwqnzj-nnihgavzaa (BREZTRI) 160-9-4.8 mcg/actuation HFA aerosol inhaler Inhale [...] HISTORY Diagnosis Date AAA (abdominal aortic aneurysm) ([facility]) Abdominal aortic aneurysm (AAA) without rupture ([facility]) 09/09/2023 Aneurysm of left common iliac artery ([facility]) 11/05/2023 Aneurysm, thoracic aortic ([facility]) Arthritis Centrilobular emphysema ([facility]) 10/01/2022 Chronic pain Chronic respiratory failure with hypoxia ([facility]) 05/24/2019 Chronic venous stasis dermatitis COPD (chronic obstructive pulmonary disease) ([facility]) Degenerative disc disease Depression Descending thoracic aortic dissection ([facility]) 12/22/[address] Perry (vascular) Dissection of thoracoabdominal aorta ([facility]) 09/21/2023 Fibromyalgia HTN (hypertension) OA (osteoarthritis) MICHEL (obstructive sleep apnea) not on CPAP Restless leg syndrome Thoracic aortic aneurysm ([facility]) 12/23/2018 PAST SURGICAL HISTORY Procedure Laterality Date [...] YR, HIGH DOSE, TRIVALENT (FLUZONE HIGH-DOSE) - Defywire COVID-19 VACCINE AGE 12+ YR (COMIRNATY) 3. [...] months and prn. documented in this encounter [facility] 03-03-2024 Telephone encounter Note Prescription Refill Information [...] Holloway LPN March 03, 2024 8:56 AM [facility] 03-03-2024 Miscellaneous Notes Prescription Refill Information The [...] 2024 8:56 AM documented in this encounter [facility] 03-02-2024 History of Present illness Narrative CD Telephonic Outreach Provider Action/FYI Contacted for: Routine Telephonic Outreach Contact made with patient: No, left message. Selene Anaya RN March 02, 2024 3:53 PM Last CDM outreach contact: 02/03/24 - No new CDM concerns. Knees bothering her. Follows with Pain management and that Is helpful [facility] Telephonic Outreach Provider Action/FYI Contacted for: Routine Telephonic Outreach Contact made with patient: No, left message. Selene Anaya RN March 02, 2024 1:38 PM documented in this encounter [facility] 02-29-2024 Telephone encounter Note Prescription Refill Information [...] Hermosillo LPN February 29, 2024 9:31 AM [facility] 02-29-2024 Miscellaneous Notes Prescription Refill Information The [...] 2024 9:31 AM documented in this encounter [facility] 02-09-2024 Telephone encounter Note Prescription Refill Information [...] Hermosillo LPN February 09, 2024 10:52 AM [facility] 02-09-2024 Miscellaneous Notes Prescription Refill Information The [...] 2024 10:52 AM documented in this encounter [facility] 02-03-2024 History of Present illness Narrative CDM [...] Baseline: SOB with exertion. Oxygen 3 L/NC / Do you have new or worsening cough? No Baseline: Occasional cough Do you have new or worsening wheezing? No Do you need to use your rescue (Albuterol) inhaler or nebulizer more often than normal? No Baseline: Albuterol inhaler PRN Nebulizer BID Lives with daughter. Feels safe. + food Daughter has Blink camera set up Based on global sourcing manager, the following disposition is advised: No symptoms [...] 2024 2:02 PM documented in this encounter [facility] 02-01-2024 Telephone encounter Note Patient phones requesting refills as follows: Requested Prescriptions Pending Prescriptions Disp Refills jlqhrvryjc-aynqspno-qbnssnylhp (BREZTRI) 160-9-4.8 mcg/actuation HFA aerosol inhaler 10.7 g 5 Sig: Inhale 2 Puffs as instructed two times a day. Please review and advise. Staci Zamorano LPN [facility] 02-01-2024 Miscellaneous Notes Patient phones requesting refills as follows: Requested Prescriptions Pending Prescriptions Disp Refills ovusydchux-wnymvgse-dghownexvn (BREZTRI) 160-9-4.8 mcg/actuation HFA aerosol inhaler 10.7 g 5 Sig: Inhale 2 Puffs as instructed two times a day. Please review and advise. Staci Zamorano LPN documented in this encounter [facility] 01-11-2024 History of Present illness Narrative [facility] Telephonic Outreach Provider Action/FYI Contacted for: Routine [...] more often than normal? No Based on global sourcing manager, the following disposition is advised: No symptoms [...] insecurity completed: 01/11/23 documented in this encounter [facility] 01-11-2024 Telephone encounter Note Prescription Refill Information [...] Burrell LPN January 11, 2024 11:07 AM [facility] 01-11-2024 Miscellaneous Notes Prescription Refill Information The [...] 2024 11:07 AM documented in this encounter [facility] 01-06-2024 History of Present illness Narrative Images from the original note were not included. [facility]PART[facility] OF [facility]ULMONARY [facility]ICINE Date: January 06, 2024 Patient Name: Kandi Correia PRIMARY CARE PROVIDER: Jalyn Smith MD REASON FOR VISIT: follow up HPI: Kandi Correia 78 year old female former 83-fygw-sqpq smoker having quit in 2011 with PMH [...] 07/30/2021 COVID-19 vaccine, age 12+ yr, bivalent (PFIZER-BIONTGELI) 03/20/2022 influenza (HD-IIV3) vaccine, age 65+ yr, [...] (HCC) No date: Arthritis 10/01/2022: Centrilobular emphysema ([facility]) No date: Chronic pain 05/24/2019: Chronic respiratory failure with hypoxia ([facility]) No date: Chronic venous stasis dermatitis No date: COPD (chronic obstructive pulmonary disease) ([facility]) No date: Degenerative disc disease No date: Depression 12/22/2018: Descending thoracic aortic dissection ([facility]) Comment: medically managed by Dr. Perry (vascular) 09/21/2023: Dissection of thoracoabdominal aorta ([facility]) No date: Fibromyalgia No date: HTN (hypertension) [...] Collected: 01/11/2021 2:09 PM (Final result) Narrative: [facility] [address] [place] [address] Test Date: 2021-01-11 Pat Name: KANDI CORREIA Department: Room: Gender: Female [employer]: ROBERT Palencia : 1945 Requested By: Order Number: [id number] Reading MD: Brady Avila Interpretive Statements The [...] EDT by Brady Avila Site: WO ID: [id number] Name: KANDI CORREIA Visit Date: 01/11/2021 Second ID: [id number] Reviewing Doctor: OLBRYCH [employer]: ROBERT Maravilla: 75 : 1945 Sex: Female Race: Height: 64.00 Inches Weight: 226.80 Lbs BSA: 2.06 Order IDs: [id number] Requested Test(s): Spirometry baseline only Diagnosis: J43.2^Centrilobular [...] 10/14/2023 2:22 PM (Final result) Impression: IMPRESSION: Foley type B dissection extending from the mid [...] smoker - ICD9: V15.82, ICD10: Z87.891 Former 36-xvcf-qgaa smoker having quit in 2011 with sequelae [...] Juhi Nolasco PA-C documented in this encounter [facility] 12-14-2023 History of Present illness Narrative [facility] Telephonic Outreach Provider Action/FYI Contacted for: Routine [...] SDOH transportation and food insecurity completed: 01/11/23 [facility] Telephonic Outreach Provider Action/FYI Contacted for: Routine Telephonic Outreach Contact made with patient: No, left message. Selene Anaya RN December 14, 2023 3:09 PM documented in this encounter [facility] 11-18-2023 Telephone encounter Note Patient notified RX sent to [facility]. I called [facility] is currently on backorder. Spoke to Giancarlo at [facility]. They did have RX in stock. Called in one month supply x1 refill. Patient notified re: same. Staci Zamorano LPN [facility] 11-18-2023 Miscellaneous Notes Patient notified RX sent to [facility]. I called [facility], [facility] is currently on backorder. Spoke to Giancarlo at [facility]. They did have RX in stock. Called in one month supply x1 refill. Patient notified re: same. Staci Zamorano LPN Sent to pharmacy. [facility] Patient phones requesting refills as follows: Requested Prescriptions Pending Prescriptions Disp Refills vfhzteizvm-tspkmkia-tfpywkwzcw (BREZTRI) 160-9-4.8 mcg/actuation HFA aerosol inhaler 32.1 g 3 Sig: Inhale 2 Puffs as instructed two times a day. Please review and advise. Staci Zamorano LPN documented in this encounter [facility] 11-18-2023 Telephone encounter Note Sent to pharmacy. [facility] 11-18-2023 Telephone encounter Note Patient phones requesting refills as follows: Requested Prescriptions Pending Prescriptions Disp Refills hfofwjromn-biachjcd-fdfmgokeod (BREZTRI) 160-9-4.8 mcg/actuation HFA aerosol inhaler 32.1 g 3 Sig: Inhale 2 Puffs as instructed two times a day. Please review and advise. Staci Zamorano LPN [facility] 11-18-2023 Telephone encounter Note Opened in error. Staci Zamorano LPN [facility] 11-18-2023 Miscellaneous Notes Opened in error. Staci Zamorano LPN documented in this encounter [facility] 11-16-2023 History of Present illness Narrative CDM [...] insecurity completed: 01/11/23 documented in this encounter [facility] 11-12-2023 Telephone encounter Note Patient MyChart message requesting the following refill Refill(s) Requested: Requested Prescriptions Pending Prescriptions Disp Refills metFORMIN (GLUCOPHAGE) 500 mg tablet 30 tablet 0 Sig: Take 1 tablet by mouth daily with breakfast. ALLERGIES Allergen Reactions Lisinopril Other: See Comments cough Lyrica [Pregabalin] Swelling (home) [phone] (cell) Last Office Visit Date: 09/08/2023 Last [facility] Health Visit: Visit date not found Future Appointment: 03/09/2024 The patients preferred pharmacy has been captured for this encounter? yes Request is for script(s) to be escript to pharmacy. Cecile Hollins LPN [facility] 11-12-2023 Miscellaneous Notes Patient MyChart message requesting the following refill Refill(s) Requested: Requested Prescriptions Pending Prescriptions Disp Refills metFORMIN (GLUCOPHAGE) 500 mg tablet 30 tablet 0 Sig: Take 1 tablet by mouth daily with breakfast. ALLERGIES Allergen Reactions Lisinopril Other: See Comments cough Lyrica [Pregabalin] Swelling (home) [phone] (cell) Last Office Visit Date: 09/08/2023 Last [facility] Health Visit: Visit date not found Future Appointment: 03/09/2024 The patients preferred pharmacy has been captured for this encounter? yes Request is for script(s) to be escript to pharmacy. Cecile Hollins LPN documented in this encounter [facility] 11-05-2023 History of Present illness Narrative Images from the original note were not included. [facility] ESTABLISHED CLINIC VISIT Kandi Correia [id number] HPI: Ms. Correia is a 78 year [...] mg by mouth two times a day. vynxepnhtf-galkhgrc-gxhrysctwx (BREZTRI) 160-9-4.8 mcg/actuation HFA aerosol inhaler Inhale [...] Chronic pain Chronic respiratory failure with hypoxia ([facility]) 05/24/2019 Chronic venous stasis dermatitis COPD (chronic obstructive pulmonary disease) ([facility]) Degenerative disc disease Depression Descending thoracic aortic dissection ([facility]) 12/22/[address] Perry (vascular) Dissection of thoracoabdominal aorta ([facility]) 09/21/2023 Fibromyalgia HTN (hypertension) OA (osteoarthritis) MICHEL (obstructive sleep apnea) not on CPAP Restless leg syndrome Thoracic aortic aneurysm ([facility]) 12/23/2018 PAST SURGICAL HISTORY: PAST SURGICAL HISTORY [...] and imaging results CTA CAP 10/14/23 IMPRESSION: Foley type B dissection extending from the mid [...] 4 - Moderate documented in this encounter [facility] 11-03-2023 Telephone encounter Note Patient calling with request for assistance with finding a supply company that [employer] will cover. Patient received a letter that her [employer] is no longer covered. Patient receives her oxygen supplies from them. Patient denies any new or worsening symptoms of which a provider is not aware: Yes. Patient transferred to her pulmonary provider's office. She was also advised to contact [employer] directly to see which medical supply company may be covered. [facility] 11-03-2023 Miscellaneous Notes Patient calling with request for assistance with finding a supply company that [employer] will cover. Patient received a letter that her [employer] is no longer covered. Patient receives her oxygen supplies from them. Patient denies any new or worsening symptoms of which a provider is not aware: Yes. Patient transferred to her pulmonary provider's office. She was also advised to contact [facility] directly to see which medical supply company may be covered. documented in this encounter [facility] 10-29-2023 Telephone encounter Note The following approved medication requests have been transmitted electronically. Requested Prescriptions Pending Prescriptions Disp Refills rOPINIRole (REQUIP) 0.5 mg tablet 270 tablet 1 Sig: Take 3 tablets by mouth daily at bedtime. Casandra Kinsey APRN.CNS [facility] 10-29-2023 Miscellaneous Notes The following approved medication requests have been transmitted electronically. Requested Prescriptions Pending Prescriptions Disp Refills rOPINIRole (REQUIP) 0.5 mg tablet 270 tablet 1 Sig: Take 3 tablets by mouth daily at bedtime. Casandra Kinsey APRN.LEVEL DESIGNER Patient has been identified by name and [...] Zackery Corral MA. documented in this encounter [facility] 10-29-2023 Telephone encounter Note Patient has been [...] Please advise. Thank you. Zackery Corral MA. [facility] 10-19-2023 History of Present illness Narrative CDM [...] to use MDI. Understanding COPD. Based on global sourcing manager, the following disposition is advised: No symptoms [...] insecurity completed: 01/11/23 documented in this encounter [facility] 10-14-2023 History of Present illness Narrative Radiology [...] PATIENT PRESENTS WITH AN IMPLANTABLE OR ATTACHED CAMPUS EXECUTIVE DIRECTOR: No RADIOLOGY DEPARTMENT: CT; Exam(s) Completed: CTA Abdomen Pelvis and CTA Cardiac PERIPHERAL IV DATA: Site assessment: Clean,Dry and Intact, Site disposition Discontinued SIGNED BY: ANTHONY Milner October 14, 2023 2:13 PM documented in this encounter [facility] 10-14-2023 Nurse Note Radiology Service Progress Note [...] to prevent falls during this visit? Yellow "Falls Risk Wristband" Applied, Instructed Patient to Remain Seated (Not [...] DATE: October 14, 2023 TIME: 2:09 PM [facility] 10-14-2023 Nurse Note Radiology Service Progress Note [...] to prevent falls during this visit? Yellow "Falls Risk Wristband" Applied, Instructed Patient to Remain Seated (Not [...] TIME: 2:09 PM documented in this encounter [facility] 10-02-2023 Telephone encounter Note Patient has been identified by name and date of : Yes, Provider [place] Date 10/02/23 Time 04:33pm Patient phones for [...] Please advise. Thank you. Nisha Valencia MA. [facility] 10-02-2023 Miscellaneous Notes Patient has been identified by name and date of : Yes, Provider [place] Date 10/02/23 Time 04:33pm Patient phones for [...] Nisha Valencia MA. documented in this encounter [facility] 09-30-2023 Procedure note Associated Ord er(s): OXIMETRY [...] September 30, 2023 TIME: 12:17 PM Comment: [facility] 09-30-2023 Procedure note Associated Ord er(s): OXIMETRY [...] 12:17 PM Comment: documented in this encounter [facility] 09-30-2023 History of Present illness Narrative PULM FUNCTION SMARTBLOCK: Provider: Zackery Mayfield MD Assisting Tech: Karen Vargas RPFT Oximetry - Ambulation: 1 documented in this encounter [facility] 09-30-2023 History of Present illness Narrative Images from the original note were not included. Patient: Kandi Correia PCP: Jalyn Smith MD CC: follow up HPI: Kandi Correia 78 year old female former [id number]-dttb smoker having quit in 2011 with PMH significant for obesity, HTN, fibromyalgia, descending aortic aneurysm with dissection, MICHEL not on CPAP, severe COPD (FEV1 32%), chronic hypoxemic respiratory failure presenting for follow-up visit. Current inhaled therapy consists of budesonide, Brovana and DuoNeb. [facility] 08[facility]/[address] to [address] abd/pelvis showed bibasilar consolidations and she was treated with Levaquin for 7 days. Today, patient states she is doing well. Daily cough productive of white phelgm. No hemoptysis. Exertional dyspnea with minimal effort. No fevers, chills or night sweats. Currently wearing 3 L continuously. DME: [employer] PAST MEDICAL HISTORY Diagnosis Date AAA (abdominal aortic aneurysm) ([facility]) Abdominal aortic aneurysm (AAA) without rupture ([facility]) 09/09/2023 Aneurysm, thoracic aortic ([facility]) Arthritis Centrilobular emphysema ([facility]) 10/01/2022 Chronic pain Chronic respiratory failure with hypoxia ([facility]) 05/24/2019 Chronic venous stasis dermatitis COPD (chronic obstructive pulmonary disease) ([facility]) Degenerative disc disease Depression Descending thoracic aortic dissection ([facility]) 12/22/[address] Perry (vascular) Dissection of thoracoabdominal aorta ([facility]) 09/21/2023 Fibromyalgia HTN (hypertension) OA (osteoarthritis) MICHEL (obstructive sleep apnea) not on CPAP Restless leg syndrome Thoracic aortic aneurysm ([facility]) 12/23/2018 Allergies: Lisinopril Other: See Comments Comment:cough [...] EMR. IMMUNIZATIONS Prevnar 13 - 2016 Pneumovax - 2013 Influenza - xx COVID-19 - [...] smoker - ICD9: V15.82, ICD10: Z87.891 Former 48-coxt-lpkm smoker having quit in 2011 with sequelae [...] Juhi Nolasco PA-C documented in this encounter [facility] 09-24-2023 Miscellaneous Notes Called and updated patient [...] any uti symptoms. documented in this encounter [facility] 09-24-2023 Miscellaneous Notes I have called and spoke to the patient several times to explain and talk over what we can do and what has happened with the testing and possibly getting her to see Dr. Todd out in [place] coming to [place]. She wants to go to to see [facility] and for the testing if it cannot be done at the [facility]. I gave the patient the phone # to the [place] location but she stated it would not go through. I messaged Kasey to ask her to call the patient and schedule something for her. documented in this encounter [facility] 09-21-2023 Note HNO ID: [id number] Author: YANIV TODD MD Service: ? Author Type: Physician Type: Progress Notes Filed: 09/21/2023 17:58 Note Text: [facility] [place] DEPARTMENT OF VASCULAR SURGERY OUTPATIENT VISIT DATE September 21, 2023 OUTPATIENT VISIT TYPE CONSULTATION PRIMARY CARE PHYSICIAN: Jalyn Smith MD REFERRING PROVIDER: Jalyn Smith [address] [facility] [id number] Consult requested for an opinion regarding the [...] PAST MEDICAL HISTORY: (more content not included)... [facility] 09-21-2023 History of Present illness Narrative Images from the original note were not included. [facility] [place] DEPARTMENT OF VASCULAR SURGERY OUTPATIENT VISIT DATE September 21, 2023 OUTPATIENT VISIT TYPE CONSULTATION PRIMARY CARE PHYSICIAN: Jalyn Smith MD REFERRING PROVIDER: Jalyn Smith [address] [facility] [id number] Consult requested for an opinion regarding the [...] HISTORY Diagnosis Date AAA (abdominal aortic aneurysm) ([facility]) Abdominal aortic aneurysm (AAA) without rupture ([facility]) 09/09/2023 Aneurysm, thoracic aortic ([facility]) Arthritis Centrilobular emphysema ([facility]) 10/01/2022 Chronic pain Chronic respiratory failure with hypoxia ([facility]) 05/24/2019 Chronic venous stasis dermatitis COPD (chronic obstructive pulmonary disease) ([facility]) Degenerative disc disease Depression Descending thoracic aortic dissection ([facility]) 12/22/[address] Perry (vascular) Dissection of thoracoabdominal aorta ([facility]) 09/21/2023 Fibromyalgia HTN (hypertension) OA (osteoarthritis) MICHEL (obstructive sleep apnea) not on CPAP Restless leg syndrome Thoracic aortic aneurysm ([facility]) 12/23/2018 PAST SURGICAL HISTORY: PAST SURGICAL HISTORY [...] VITALS: BP 128/80 Pulse 93 Ht 5' 4"[Patient reports[ (1.63m) Wt 189 lb (85.7kg) SpO2 [...] imaging results CTA Reviewed: from 2021 Stable Vin type B dissection extending from the distal [...] 4 - Moderate documented in this encounter [facility] 09-21-2023 History of Present illness Narrative [facility] Telephonic Outreach Provider Action/FYI Contacted for: Routine [...] more often than normal? No Based on global sourcing manager, the following disposition is advised: No symptoms or symptoms present, not severe. Routed to: No Action Needed SAMMY Education Provided this Outreach: No Selene Willkomm, RN September 21, 2023 1:25 PM Care Coordination next call- COPD HTN DM Last CDM outreach contact: 09/21/23 - No new CDM concerns. Baseline: 07/20/23 ADL, FALL, GOAL due: 09/20/24 . Chronic disease goal - 10/15/22 -COPD - Need zones/management 05/06/23- HTN - Need review SDOH transportation and food insecurity completed: 01/11/23 documented in this encounter [facility] 09-15-2023 Miscellaneous Notes Pt states she is taking metoprolol as needed, needs refill documented in this encounter [facility] 09-14-2023 Miscellaneous Notes Patient MyChart message requesting the following refill Refill(s) Requested: Requested Prescriptions Pending Prescriptions Disp Refills oxybutynin XL (DITROPAN XL) 5 mg 24 hr tablet 90 tablet 1 Sig: Take 1 tablet by mouth once daily. ALLERGIES Allergen Reactions Lisinopril Other: See Comments cough Lyrica [Pregabalin] Swelling (home) [phone] (cell) Last Office Visit Date: 09/08/2023 Last Distance Health Visit: Visit date not found Future Appointment: 03/09/2024 The patients preferred pharmacy has been captured for this encounter? yes Request is for script(s) to be escript to pharmacy. Cecile Hollins LPN documented in this encounter [facility] 09-12-2023 Miscellaneous Notes Requested Prescriptions Pending Prescriptions Disp Refills metFORMIN (GLUCOPHAGE) 500 mg tablet 30 tablet 0 Sig: Take 1 tablet by mouth daily with breakfast. Date of last office visit in primary care: 09/08/2023 Date of next office visit in primary care: 03/09/2024 Please advise. Thank you. Karel Gonzalez MA. documented in this encounter [facility] 09-10-2023 Miscellaneous Notes I called the patient and explained that she needed to be re-certified due to new insurance. She states that she DOES NOT have new insurance. Pt very worried that she is going to run out and does not want to have to pay out of pocket. Called [facility] back and they were made aware that nothing has changed. They reassured me that they had all of the documentation needed from our office. They are going to call pt today and scheduled for tomorrow. Judy Bagley MA Pt calling to see the status of her oxygen. Call to [facility]. They state that they were just informed that the patient has new insurance. That means that she needs to requalify. They require a recent SP02 that is 88% or below on room air. If SP02 is above that, they would need the additional testing. Please review and advise. Judy Bagley MA documented in this encounter [facility] 09-09-2023 Miscellaneous Notes Patient is overdue to see vascular for follow up. Was a patient of Dr Perry and was to be transferring over to Dr Darby. Can we please help patient get set up? documented in this encounter [facility] 09-09-2023 Miscellaneous Notes Patient and daughter were [...] in two weeks. documented in this encounter [facility] 09-08-2023 History of Present illness Narrative Radiology [...] PATIENT PRESENTS WITH AN IMPLANTABLE OR ATTACHED CAMPUS EXECUTIVE DIRECTOR: No RADIOLOGY DEPARTMENT: General X-ray: Exam(s) Completed: Chest X-Ray PERIPHERAL IV DATA: Not applicable SIGNED BY: RT Rashard(R) September 08, 2023 3:01 PM documented in this encounter [facility] 09-08-2023 History of Present illness Narrative Patient presents with: ER F/U HPI: Patient presents today for office visit for ER follow up. HOSPITAL/ER FOLLOW UP: Reason for visit: Abdominal pain Which facility: [facility] Date of visit: 08/28/23 Diagnosis: Pneumonia Testing [...] 100/54 Pulse 70 Ht 162.6 cm (5' 4") Wt 86.2 kg (190 lb) SpO2 94% [...] Jalyn Smith MD documented in this encounter [facility] 2023 Miscellaneous Notes Called patient for update. Patient was seen at [facility] ED and diagnosed with pneumonia. Patient denies any needs from us at this time. Ashley Britt RN documented in this encounter [facility] 2023 Miscellaneous Notes See triage. Pt scheduled for "L side back and stomach pain" on 08/30. Please triage. Pt was referred to GI in January for Anemia, Blood in Stool and Diarrhea, pt declined. Pt was also referred to Pain Mgmt for back pain, referral was faxed to Dr. Paul's office. Please triage pt. Aj Hermosillo LPN documented in this encounter [facility] 08-28-2023 Discharge summary Note Date/Time August 28, 2023 3:12pm [facility] Medical Records Department [address] [place] [id number] Emergency Department Summary 08/28/23 MR#: [id number] Acct: [id number] Name: KANDI CORREIA Rep #:[id number] : 1945 77 From: Juni Ho DO [...] or chills. Denies urinary or vaginal complaints. [facility] Medical History (Updated 08/28/23 @ 17:[address] Juni Vic, DO) Aortic dissection, abdominal COPD (chronic obstructive [...] 84.7 H Lymph % (Auto) 1.8 L [place] % (Auto) 12.3 H Eos % (Auto) 0.1 Baso % (Auto) 0.6 Absolute Neuts (auto) 10.7 H Absolute Lymphs (auto) 0.23 L Nucleated RBC % 0 Differential Comment SCANNED Diff Path Review May foll Sodium 131 L Potassium 3.1 L Chloride [...] your Primary Care Provider. Call [facility] ([phone]) or report to the closest Emergency Room. Call 911 if necessary. 08/28/23 1742 <Electronically signed by Juni Ho DO> Cosigner Signature (if applicable): CC: Dr. Jalyn Smith MD ~ Signed [facility] Work Phone: 1(582) 949-914103-22-2024 Miscellaneous Notes* Telephone Encounter - Maria Alejandra [...] Pain began a week ago. 4. SUDDEN: "Gradual 5. PATTERN It is constant and staying [...] : Postmenopausal. Protocols used: Abdominal Pain - [id number] [facility] History of Present illness Narrative* Selene Anaya RN - 08/24/2023 3:13 PM EDT CDM Telephonic Outreach Provider Action/FYI [...] more often than normal? No Based on global sourcing manager, the following disposition is advised: No symptoms [...] Anaya RN - 08/24/2023 11:44 AM EDT CDM Telephonic Outreach Provider Action/FYI Contacted for: Routine Telephonic Outreach Contact made with patient: No, left message. Selene Anaya RN August 24, 2023 11:47 AM [facility] Miscellaneous Notes* Telephone Encounter - Casandra Burrell [...] you. Casandra Burrell LPN. [facility] History of Present illness Narrative* Selene Anaya RN - 08/17/2023 5:17 PM EDT CD Telephonic Outreach Provider Action/FYI [...] Anaya RN - 08/17/2023 4:28 PM EDT [facility] Telephonic Outreach Provider Action/FYI Contacted for: Routine Telephonic Outreach Contact made with patient: No, left message. Selene Anaya RN August 17, 2023 4:31 PM [facility] Miscellaneous Notes* Telephone Encounter - Casandra Kinsey APRN.CNS - 08/03/2023 3:33 PM EST Please get [...] 01/12/23 Kalpana Sharif LPN [facility] History of Present illness Narrative* Zackery Mayfield MD - 07/24/2023 10:30 AM EST Images from the original note were not included. . [facility] [place] Note Patient name: Kandi Correia PCP: Jalyn Smith MD CC: Follow-up COPD HPI: Kandi Correia 77 year old female former 15-ykvv-efhn smoker having quit in 2011 with PMH [...] Her daughter states that she sounds like "Marietta Diggs". Patient admits that she has only been [...] 0.94 Low Monocytes % % 12.6 Abs [place] <0.87 k/uL 0.81 Eosinophils % % 3.1 [...] stasis dermatitis COPD (chronic obstructive pulmonary disease) ([facility]) Degenerative disc disease Depression Descending thoracic aortic dissection ([facility]) 12/22/[address] Perry (vascular) [...] supply of nebulized treatments then transition to [facility] 2. Chronic hypoxemic respiratory failure -Patient is compliant with and benefits from supplemental oxygen -Needs to remember to breathe through her nose 3. Former cigarette smoker -Former 29-rfhd-bieq smoker having quit in 2011 with sequelae of severe COPD -Patient is not a candidate for lung cancer screening based on her severe COPD, oxygen dependence, other comorbidities and debilitated state 4. Class II obesity -BMI 35 -Weight loss advised Zackery Mayfield MD [facility] [place] [facility] History of Present illness Narrative* Selene Anaya, SANDRA - 07/20/2023 12:47 PM EST [facility] Telephonic Outreach Provider Action/FYI Contacted for: Routine [...] No SOB with exertion. Oxygen 3 L/NC 24/ Do you have new or worsening cough? No Occasional cough Do you have new or worsening wheezing? No Do you need to use your rescue (Albuterol) inhaler or nebulizer more often than normal? No Albuterol inhaler PRN Nebulizer BID Lives with daughter. Feels safe. + food Daughter has Blink camera set up Based on global sourcing manager, the following disposition is advised: No symptoms [...] food insecurity completed: 01/11/23 [facility] History of Present illness Narrative* Selene Anaya RN - 07/16/2023 11:59 AM EST [facility] Telephonic Outreach Provider Action/FYI Contacted for: [...] food insecurity completed: 01/11/23 [facility] Miscellaneous Notes* Telephone Encounter - Roseann Schmitz [...] patient. Roseann Schmitz RN [facility] Miscellaneous Notes* Telephone Encounter - Kalpana Sharif [...] request Kalpana Sharif LPN [facility] History of Present illness Narrative* Juliann Carrillo RN - 04/22/2023 4:07 PM EST [facility] Telephonic Outreach Provider Action/FYI Contacted for: Routine Telephonic Outreach Contact made with patient: No, left message. Juliann Worrell RN April 28, 2023 5:53 PM [facility] History of Present illness Narrative* Lizett Restrepo MSW - 03/30/2023 1:09 PM EDT Patient spoke with regarding any programs to help with paying her daughter that moved in to takecare of patient in her home. Sw noted that she is not aware of any grants for this. Sw noted patient could contact [facility] and see if they know of any services. Vin noted [facility] has Passport program for those on Medicaid and they help cover cost of home pet care technician. Sw noted this information as [facility] may then have resource knowledge of any type of assistance for daughter as patient caregiver. Patient thanked Vin for information and will reach out to [facility] AAA. documented in [facility] History of Present illness Narrative* Selene Anaya RN - 03/27/2023 3:14 PM EDT CD[facility] Telephonic Outreach Provider Action/FYI Pt daughter moved in with her and [...] more often than normal? No Based on global sourcing manager, the following disposition is advised: No symptoms [...] 02/18- started on Buprenorphine transdermal Routed to see fyi Baseline: 01/12/23 ADL, FALL, GOAL due: 10/16/23 . Chronic disease goal - 10/15/22 -copd SDOH transportation and food insecurity completed: 01/11/23 * Selene Anaya RN - 03/27/2023 12:30 PM EDT CD[facility] Telephonic Outreach Provider Action/FYI Contacted for: Routine Telephonic Outreach Contact made with patient: No, left message. Selene Anaya RN March 27, 2023 12:32 PM Care Coordination next call- COPD DM lvm x 3 Last CDM outreach contact: 02/10 -COPD No concerns. Pain to shoulders and back, knees from OA. Follows with Pain Management Next appt 02/18 Baseline: 01/12/23 ADL, FALL, GOAL due: 10/16/23 . Chronic disease goal - 10/15/22 -copd SDOH transportation and food insecurity completed: 01/11/23 documented in [facility] encounterMary [facility]23 Miscellaneous Notes* Telephone Encounter - Stacey Rod [...] notify patient. Stacey Rod documented in this encounterMary [facility]10-05-2023 Miscellaneous Notes* Telephone Encounter - Juhi Nolasco PA-C - 03/12/2023 1:21 PM EDT Refilled script jmb * Telephone Encounter - Staci Zamorano LPN - 03/12/2023 1:13 PM EDT Patient phones requesting refills as follows: JERRELL: 01/19/23 Requested Prescriptions Pending Prescriptions Disp Refills arformoterol (BROVANA) 15 mcg/2 mL nebulizer solution 360 mL 2 Sig: Inhale 2 mL as instructed every 12 hours. May mix with Budesonide neb twice a day. Please review and advise. Staci Lona VALENZUELA documented in this encounterMary [facility] Hospital09-05-2023 History of Present illness Narrative* Selene Anaya RN - 02/10/2023 1:51 PM EDT CDM Telephonic Outreach Provider Action/FYI [...] more often than normal? No Based on global sourcing manager, the following disposition is advised: No symptoms [...] food insecurity completed: 01/11/23 documented in this encounterMary [facility]2023 Miscellaneous Notes* Telephone Encounter - Kalpana Sharif LPN - 02/05/2023 9:34 AM EDT Completed and faxed back. * Telephone Encounter - Aj Hermosillo LPN - 02/04/2023 3:20 PM EDT Type of form: PT eval from [facility] Form received via fax When form is completed, Fax form to [phone] Form has been forwarded to Physician Mailbox: Dr. Luis Hermosillo LPN documented in this encounterMary [facility] Hospital08-17-2023 History of Present illness Narrative* Marian Real - 01/22/2023 1:34 PM EDT POPULATION HEALTH NAVIGATION OUTREACH Action/[facility] Support: Called pt to schedule an appt in Pain Management. Lvm for pt to call [phone] for scheduling Patient Identified by Name and : NO Outreach Outcome/Action Unable to reach patient: Left message Did you use a PCP flex slot to schedule this appointment? No Reason for Outreach Care Gap or Scheduling/Wellness visits Payer: Payor: [employer] MEDICARE / Plan: [employer] MEDICARE PPO / Product Type: PPO / Care Gap Reviewed:: Specialty Scheduling Reminder: Reminder note to check Health Maintenance for items below Health Maintenance items due: HEPATITIS C SCREENING Never done COVID-19 VACCINE(5 - Moderna series) due on 07/21/2022 Navigation Signature: Marian Real January 22, 2023 1:34 PM documented in this encounterMary [facility] Hospital08-16-2023 Miscellaneous Notes* Telephone Encounter - Maria Alejandra [...] Adan requests verbal order be called to [phone] if provider agrees. Francoise Grady RN documented in this encounterMary [facility] Hospital08-14-2023 Instructions* Patient Instructions* Juhi Nolasco PA-C - 01/19/2023 2:30 PM EDT 9 am: Arformoterol (Brovana) + Budesonide (Pulmicort) mixed together via nebulizer 9 pm: Arformoterol (Brovana) + Budesonide (Pulmicort) mixed together via nebulizer You may use DuoNebs (Ipratropium/albuterol) throughout the day every 4 hours as needed for wheezing/SOB documented in this encounterMary [facility] Hospital08-14-2023 History of Present illness Narrative* Juhi Nolasco [...] on chronic oxygen. Patient recently admitted to [facility] from 12/10 - 12/15 for UTI [...] 06/19/2016 Pneumovax - 03/09/2014 Influenza - 03/20/2022 COVID- - 03/20/2022 ROS: CONSTITUTIONAL: No fevers, chills, [...] Cardiac chambers are unremarkable in appearance. Stable Vin type B dissection extending from the distal [...] acute osseous abnormality identified. IMPRESSION: Stable appearing Foley type B dissection. Possible peripheral and posterior [...] necessary. Juhi Nolasco PA-C documented in this encounterMary [facility]an Hospital08-11-2023 Miscellaneous Notes* Telephone Encounter - Kalpana Sharif LPN - 01/16/2023 10:43 AM EDT Faxed. * Telephone Encounter - Jalyn Smith MD - 01/15/2023 5:29 PM EDT Was already placed on 01/12, see order * Telephone Encounter - Elyssa High RN - 01/15/2023 1:17 PM EDT Patient's daughter calling to request Pain Management referral be faxed to Dr. Paul @ [facility] Pain Management. Elyssa High RN documented in this encounterMary [facility] Hospital08-09-2023 Miscellaneous Notes* Telephone Encounter - Stacey Rod [...] her mind regarding consult documented in this encounterMary [facility]08-07-2023 History of Present illness Narrative* Selene Anaya RN - 01/12/2023 3:59 PM EDT [facility] Telephonic Outreach Provider Action/FYI Contacted for: Routine [...] No SOB with exertion. Oxygen 3 L/NC 29/12 [...] like to speak with a social work service team leader to help give you support for any of these needs? No Lives with daughter. Feels safe. + food Daughter has Blink camera set up It can be normal to feel anxious or down during a time like this. Would you like to talk to a mental health professional about how you have been feeling? No Based on global sourcing manager, the following disposition is advised: No symptoms or symptoms present, not severe. Routed to: No Action Needed SAMMY Education Provided this Outreach: No Selene Anaya RN January 12, 2023 4:07 PM Care Coordination next call- Last [facility] outreach contact: 01/12 -COPD No concerns Baseline: 01/12/23 ADL, FALL, GOAL due: 10/16/23 . Chronic disease goal - 10/15/22 -copd SDOH transportation and food insecurity completed: 01/11/23 * Selene Anaya RN - 01/12/2023 2:56 PM EDT [facility] Telephonic Outreach Provider Action/FYI Contacted for: Routine [...] food insecurity completed: no documented in this encounterMary [facility] Hospital08-07-2023 Miscellaneous Notes* Addendum Note - Jalyn Smith MD - 01/12/2023 2:49 PM EDTAddended by: JALYN SMITH on: 01/12/2023 02:49 PM Modules accepted: Orders documented in this encounterMary [facility] Hospital08-07-2023 History of Present illness Narrative* Jalyn Smith MD - 01/12/2023 1:50 PM EDT Patient presents with: Hospital F/U HPI: Patient presents today for office visit for hospital follow up. Seen in [facility] ER on 12/10/22 Discharged 12/15/22 Transferred to [...] 96/56 Pulse 73 Ht 162.6 cm (5' 4") Wt 93.7 kg (206 lb 9.6 oz) [...] complication, without long-term current use of insulin ([facility]) - ICD9: 250.00, ICD10: E11.9 -stable. 9. Osteoarthritis of both knees, unspecified osteoarthritis type - ICD9: 715.96, ICD10: M17.0 - CONSULT TO PAIN MGT 10. DDD (degenerative disc disease), lumbar - ICD9: 722.52, ICD10: M51.36 - CONSULT TO PAIN MGT Jalyn Smith MD RTO in three months. documented in this encounterMary [facility]08-03-2023 Miscellaneous Notes* Telephone Encounter - Kristina Holloway LPN - 01/08/2023 11:24 AM EDT Patient phones requesting refills as follows: Requested Prescriptions Pending Prescriptions Disp Refills sertraline (ZOLOFT) 50 mg tablet 90 tablet 1 Sig: Take 1 tab once a day. JERRELL-12/12/22 Labs-12/05/22 NOV-01/12/23 Please review and advise. Kristina Holloway LPN documented in this encounterMary [facility] Hospital08-03-2023 Miscellaneous Notes* Telephone Encounter - Kristina Holloway LPN - 01/08/2023 11:21 AM EDT Patient phones requesting refills as follows: Requested Prescriptions Pending Prescriptions Disp Refills baclofen 10 mg tablet 270 tablet 1 Sig: Take 1 tablet by mouth three times daily. JERRELL-12/12/22 Labs-12/05/22 NOV-01/12/23 Please review and advise. Kristina Holloway LPN documented in this encounterMary [facility] Hospital08-03-2023 Miscellaneous Notes* Telephone Encounter - Francoise Grady RN - 01/08/2023 10:03 AM EDT Rizwana OT with [facility] HH calls to let provider know that patient was seen today for one time eval only visit. No further OT needs at this time. No call back needed. Francoise Grady RN documented in this encounterMary [facility]07-28-2023 Discharge summary Author Gustavo Vinh [facility] January 02, 2023 7:57am Note Date/Time December 30, 2022 7:46 pm [facility] Medical Records Department [address] [place] [address] Discharge Summary 12/30/221943 MR#: [id number] Acct: [id number] Name: KANDI CORREIA Rep #:[id number] : 1945 77 From: Gustavo Justice MD PCP: Dr. Jalyn Smith MD Status:ADM I N Location: [place] [address] Providers Date of Admission: 12/15/22 Primary Care Physician: Dr. Jalyn Smith MD Consultations 12/22/22 07:54 Consult: Hospice / Palliative Care Routine Consulting Provider: [facility] Reason for Consult: Palliative consult dyspnea on exertion, fatigue. EMERGENT Consult: No MD Notified: Yes Date Notified: 12/26/22 Time Notified: 10:41 Method of Notification: Text Comments:: drug abuse social worker notified Reason For Visit: GENERALIZED WEAKNESS Diagnosis [...] Diabetes mellitus type: type 2 Diabetes mellitus retirement insulin use:without termite exterminator use Diabetes mellitus complication status: with neurologic [...] Depression - Sertraline 50mg daily, stable chronic termite exterminator use, GDR not recommended. Medications at Discharge [...] home alone. Discharge home with daughter 01/02/2023, [facility] PT/OT, Front Wheeled Walker. [...] % (Auto) 55.5, Lymph % (Auto) 24.4, [place] % (Auto) 15.2 H, Eos % (Auto) [...] Additional Instructions: Discharge home with daughter 01/02/2023, [facility] PT/OT, Front Wheeled Walker. Please Follow Up With: FriendKade DO When: 4 weeks. Meaningful Use Info Meaningful Use Diagnoses (Choose all that apply): None applicable Discharge Plan Admission Admit Date/Time: 12/15/22 15:35 Primary Reason for Your Visit: Debility. Attending Provider: Gustavo Justice Chi Primary Care Provider: Jalyn Smith Consulting Providers: Neftaly Lam; Concepcion Peacock; Kaci Patino; Melanie Ochoa ORDER MANAGEMENT SPECIALIST Instructions Additional Instructions / Restrictions: Discharge home with daughter 01/02/2023, [facility] PT/OT, Front Wheeled Walker. [...] 7 days, started on TCU, sent to [facility] for pickup on discharge today. 01/02/23 0757<Electronically signed by Gustavo Justice MD> Cosigner Signature (if applicable): cc: Dr. Gustavo Justice MD; Dr. Jalyn Smith MD ~* Signed [facility] Work Phone: 1(230) 472-406707-28-2023 Hospital Discharge instructions Additional Instructions -Discharge home with daughter 01/02/2023, [facility] PT/OT, . Front Wheeled Walker. -Oxygen at 3 liters per minute via nasal cannula continuous.[facility] Work Phone: 1(180) 469-510907-11-2023 Progress note Author Cira Ortiz [facility] December 16, 2022 3:10pm Note Date/Time December 16, 2022 1:51 pm [facility] Medical Records Department [address] [place] [address] Progress Note - Pharmacy 12/16/22 1347 MR#: [id number] Acct: [id number] Name: KANDI CORREIA Rep #:[id number] : 1945 77 From: Cira Ortiz PCP: Dr. Jalyn Smith MD Status:ADM I N Location: [place] [address] TCU RX Drug Regimen Review Subjective/Objective Subjective/Objective: [...] 12/16/22 1510 <Electronically signed by Cira Ortiz> Cira Ortiz Cosigner Signature (if applicable): CC: ~ Signed [facility] Work Phone: 1(254) 108-484907-10-2023 History and physical note Author Gustavo Justice [facility] December 15, 2022 8:30pm Note Date/Time December 15, 2022 8:24 pm [facility] Medical Records Department [address] [place] [address] History & Physical Exam 12/15/222015 MR#: [id number] Acct: [id number] Name: KANDI CORREIA Rep #:[id number] : 1945 77 From: Gustavo Justice MD PCP: Dr. Jalyn Smith MD Status:ADM I N Location: [place] [address] HPI - General General Date of Admission: 12/15/22 Date of Service: 12/15/22 Chief Complaint: Here for rehabilitation. HPI Narrative 12/10/2022 KANDI CORREIA, is a 77 Female [facility]. 12/10/2022 EKG sinus rhythm [...] stengthening, prior to discharge home alone. [facility] Medical History (Updated 12/15/22 @ 20:[address] Gustaov Justice MD) COPD (chronic obstructive pulmonary disease) [...] complication status: with neurologic complications Diabetes mellitus termite exterminator insulin use: without retirement use Diabetes mellitus type: type 2 Qualified [...] Depression - Sertraline 50mg daily, stable chronic retirement use, GDR not recommended. 12/15/222029 <Electronically signed by Gustavo Justice MD> Cosigner Signature (if applicable): CC: Dr. Gustavo Justice MD; Dr. Jalyn Smith MD~ Signed [facility] Work Phone: 1(855) 350-866507-10-2023 History of Present illness Narrative* Selene Anaya RN - 12/15/2022 2:53 PM EDT CDM Telephonic Outreach Provider Action/FYI Spoke to daughter Karson; pt admitted at [facility] for UTI [facility] will f/u next month [...] food insecurity completed: no documented in this encounterMary [facility]07-10-2023 Discharge summary Author Chris Deshpande [facility] December 15, 2022 12:51pm Note Date/Time December 15, 2022 12:3 4pm [facility] Medical Records Department [address] [place] [address] Discharge Summary 12/15/22 1233 MR#: [id number] Acct: [id number] Name: KANDI CORREIA Rep #:[id number] : 1945 77 From: Chris Marie PCP: Dr. Jalyn Smith MD Status:ADM I NO [place] [facility] [id number] Providers Date of Admission: 12/10/22 Date of Discharge: 12/15/22 Primary Care Physician: Dr. Jalyn Smith MD Consultations 12/11/22 05:03 Consult: Onc/Wound/melting supervisor Routine Comment: Reason for Consult:: rt leg [...] with increased frequency. Urine culture shows Klebsiella 96117?31293 colonies nonpathologic range. Patient was started on [...] -Case management consult. 12/13: Discussed with the case maker. 12/15: Pre-CERT was obtained and patient approved [...] to schedule an establish care appointment (ph. [phone]). If there is a significant delay in [...] in before D/C Order can be placed): Halfway Facility Charges/Coding Visit Charges Inpatient E&M: 52973 Disch Hosp >30min 12/15/22 1251 <Electronically signed by Chris Deshpande MD> Cosigner Signature (if applicable): CC: Dr. Chris Deshpande MD; Dr. Jalyn Smith MD~ Signed [facility] Work Phone: 1(777) 941-663607-10-2023 Discharge summary Author Chris Deshpande [facility] December 15, 2022 2:14pm Note Date/Time December 15, 2022 12:2 6pm [facility] Medical Records Department [address] [place] [address] Transfer to [facility] MR#: [id number] Acct: [id number] Name: KANDI CORREIA Rep #:[id number] : 1945 77 From: Chris Marie PCP: Dr. Jalyn Smith MD Status:ADM I NO Certification of patient admission REQUIRED AT TIME OF ADMISSION. I CERTIFY THAT POST-HOSPITAL ECF SERVICES ARE REQUIRED TO BE GIVEN ON AN IN-PATIENT BASIS BECAUSE OF THE ABOVE NAMED PATIENT'S NEED FOR USP CARE ON A CONTINUING BASIS FOR THE [...] with increased frequency. Urine culture shows Klebsiella 12858?46545 colonies nonpathologic range. Patient was started on [...] -Case management consult. 12/13: Discussed with the case maker. Pre-CERT pending. #Macrocytic anemia -Hemoglobin on presentation [...] to schedule an establish care appointment (ph. [phone]). If there is a significant delay in [...] MD; Dr. Jalyn Smith MD ~* Signed [facility] Work Phone: 1(400) 279-996407-09-2023 Progress note Author Chris Deshpande [facility] December 14, 2022 12:30pm Note Date/Time December 14, 2022 12:30 pm [facility] Medical Records Department [address] [place] [address] Progress Note - Hospitalist 12/14/22 1226 MR#: [id number] Acct: [id number] Name: KANDI CORREIA Rep #:[id number] : 1945 77 From: Chris Marie PCP: Dr. Jalyn Smith MD Status:ADM I NO Location: [place] [address]-1 Reason for Visit Reason for Visit: Diagnoses [...] with increased frequency. Urine culture shows Klebsiella 10812?36179 colonies nonpathologic range. Patient was started on [...] -Case management consult. 12/13: Discussed with the case maker. Pre-CERT pending. #Macrocytic anemia -Hemoglobin on presentation [...] sub q Charges/Coding Visit Charges Inpatient E&M: 42250 Subs Hosp L2 12/14/22 1230 <Electronically signed by Chris Deshpande MD> Cosigner Signature (if applicable): CC: ~ Signed [facility] Work Phone: 1(682) 122-206707-08-2023 Progress note Author Chris Deshpande [facility] December 13, 2022 5:01pm Note Date/Time December 13, 2022 7:55a m [facility] Medical Records Department [address] [place] [address] Progress Note - Hospitalist 12/13/22 0755 MR#: [id number] Acct: [id number] Name: KANDI CORREIA Rep #:[id number] : 1945 77 From: Chris Marie PCP: Dr. Jalyn Smith MD Status:ADM I NO Location: [place] [address]-1 Reason for Visit Reason for Visit: Diagnoses [...] 74.0 H, Lymph % (Auto) 10.3 L, [place] % (Auto) 9.5, Eos % (Auto) 2.1, [...] complication status: with neurologic complications Diabetes mellitus retirement insulin use: without retirement use Diabetes mellitus type: type 2 Qualified [...] with increased frequency. Urine culture shows Klebsiella 91098?63826 colonies nonpathologic range. Patient was started on IV ceftriaxone in ED. I do not think patient had UTI after detailed history and discussion with daughter. Patient had 3 days of IV ceftriaxone. Antibiotic discontinued #Generalized weakness and falls -PT and OT to work with patient. -Case management consult. 12/13: Discussed with the case maker. Pre-CERT pending. #Macrocytic anemia -Hemoglobin on presentation [...] sub q Charges/Coding Visit Charges Inpatient E&M: 72390 Subs Hosp L2 12/13/22 1701 <Electronically signed by Chris Deshpande MD> Cosigner Signature (if applicable): CC: ~ Signed [facility] Work Phone: 1(347) 211-240007-07-2023 Progress note Author Angle Latham [facility] December 12, 2022 4:23pm Note Date/Time December 12, 2022 4:24p [facility] Medical Records Department [address] [place] [address] Progress Note - Hospitalist 12/12/22 1618 MR#: [id number] Acct: [id number] Name: KANDI CORREIA Rep #:[id number] : 1945 77 From: Angle Latham MD PCP: Dr. Jalyn Smith MD Status:ADM I NO Location: [place] [address]-1 Reason for Visit Reason for Visit: Diagnoses [...] 72.2 H, Lymph % (Auto) 9.9 L, [place] % (Auto) 11.3 H, Eos % (Auto) [...] Diabetes mellitus type: type 2 Diabetes mellitus mcc insulin use: without retirement use Diabetes mellitus complication status: with neurologic [...] sub q Charges/Coding Visit Charges Inpatient E&M: 28157 Subs Hosp L2 12/12/22 1623 <Electronically signed by Angle Latham MD> Cosigner Signature (if applicable): CC: ~ Signed [facility] Work Phone: 1(137) 948-257407-06-2023 Progress note Author Angle Latham [facility] December 11, 2022 2:51pm Note Date/Time December 11, 2022 11:20 am [facility] Medical Records Department [address] [place] [address] Progress Note - Hospitalist 12/11/22 1115 MR#: [id number] Acct: [id number] Name: KANDI CORREIA Rep #:[id number] : 1945 77 From: Angle Latham MD PCP: Dr. Jalyn Smith MD Status:ADM I NO Location: [place] [address]1 Reason for Visit Reason for Visit: Diagnoses [...] 74.0 H, Lymph % (Auto) 8.7 L, [place] % (Auto) 12.0 H, Eos % (Auto) [...] Clarity Clear, Urine pH 7.0, Ur Specific [place]iva 1.010, Urine Protein 30 H, Urine Glucose [...] 75.5 H, Lymph % (Auto) 7.8 L, [place] % (Auto) 12.8 H, Eos % (Auto) [...] EDT Reading Location ID and State: [facility] / [place] , Service support , Physical Exam Narrative General: Alert, oriented, [...] complication status: with neurologic complications Diabetes mellitus retirement insulin use: without retirement use Diabetes mellitus type: type 2 Qualified [...] prophylaxis: SCDs Charges/Coding Visit Charges Inpatient E&M: 59387 Subs Hosp L2 12/11/22 1402 <Electronically signed [...] Cosigner Signature (if applicable): cc: ~* Signed [facility] Work Phone: 1(348) 213-502107-06-2023 Miscellaneous Notes* Telephone Encounter - Herminia Chen RN - 12/11/2022 3:50 PM EDT [facility] Provider Action/FYI: Nurse manager staffing [place] calling from [facility] to ask if patient has home care set up. Per notes 12/08/22 and 12/10/22 daughter asking about home health but no notes stating that this is set up. manager staffing made aware and states I would route this message to the adult caregiver as well. Poonam, you've reached [facility], my name is Herminia Chen RN, I'm a registered nurse, and we are on a recorded line. Patient identified by name and date of Spoke with case maker Verify that the patient is a [facility] patient: Yes Are you having any symptoms today? No - What is the reason for call? General Questions/Other Need Call Disposition: Routed to [facility] Thank you for calling [facility]. If you develop any new symptoms, your condition worsens, then GO TO THE EMERGENCY ROOM OR CALL 911. If you have any questions, please call us back. documented in this encounterMary [facility] Hospital07-06-2023 History and physical note Author uBrke Patterson [facility] December 11, 2022 5:31am Note Date/Time December 10, 2022 9:25p m [facility] Medical Records Department [address] [place] [address] H&P Exam - Hospitalist 12/10/222124 MR#: [id number] Acct: [id number] Name: KANDI CORREIA Rep #:[id number] : 1945 77 From: Burke Patterson MD PCP: Dr. Jalyn Smith MD Status:ADM I NO [place] [facility] [id number] HPI - General General Date of Admission: [...] that she is falling. 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 Further, she reports dark stools. Also had a before presentation she complained to her PCP of polyuria for which was started on antibiotics for UTI. Additionally has been confused. Her confusion has beenimproving. [facility] Medical History COPD (chronic obstructive pulmonary disease) [...] 74.0 H, Lymph % (Auto) 8.7 L, [place] % (Auto) 12.0 H, Eos % (Auto) [...] Clarity Clear, Urine pH 7.0, Ur Specific [place]iva 1.010, Urine Protein 30 H, Urine Glucose [...] 19:19 EDT Reading Location ID and State: [facility] / [place] , Service support , Assessment & Plan Assessment/Plan (1) CATHI (acute kidney injury): (2) Diabetes mellitus: QUALIFIERS: Diabetes mellitus complication detail: with polyneuropathy Diabetes mellitus complication status: with neurologic complications Diabetes mellitus retirement insulin use: without termite exterminator use Diabetes mellitus type: type 2 Qualified [...] prophylaxis: SCDs Charges/Coding Visit Charges Inpatient E&M: 72810 Init Hosp L3 12/11/22 0531 <Electronically signed by Burke Patterson MD> Cosigner Signature (if applicable): CC: Dr. Burke Patterson MD; Dr. Jalyn Smith MD~ Signed [facility] Work Phone: 1(498) 957-705707-06-2023 Discharge summary Author [facility] December 10, 2022 10:58pm Note Date/Time December 10, 2022 6:17p m [facility] Medical Records Department [address] [place] [address] Emergency Department Summary 12/10/22 MR#: [id number] Acct: [id number] Name: KANDI CORREIA Rep #:[id number] : 1945 77 From: Hector Haas PCP: Dr. Jalyn Smith MD Status:ADM I NO Location: ME3 EQ168-7 [facility] History of Present Illness Chief Complaint: Weakness [facility] Medical History COPD (chronic obstructive pulmonary disease) [...] normal axis, normal intervals, no obvious STEMI [facility] Narrative: Patient was initially hemodynamically stable, tachypneic, [...] 74.0 H Lymph % (Auto) 8.7 L [place] % (Auto) 12.0 H Eos % (Auto) [...] Clarity Clear Urine pH 7.0 Ur Specific Riva 1.010 Urine Protein 30 H Urine Glucose [...] your Primary Care Provider. Call [facility] ([phone]) or report to the closest Emergency Room. Call 911 if necessary. 12/10/222257 <Electronically signed by Hector Fields DO> Cosigner Signature (if applicable): CC: Dr. Jalyn Smith MD ~ Signed [facility] Work Phone: [phone]) 416-106307-05-2023 Discharge summary Author [facility] December 10, 2022 10:58pm Note Date/Time December 10, 2022 6:17p m [facility] Medical Records Department [address] [place] [address] Emergency Department Summary 12/10/22 MR#: [id number] Acct: [id number] Name: KANDI CORREIA Rep #:[id number] : 1945 77 From: Hector Haas PCP: Dr. Jalyn Smith MD Status:ADM I NO [place] [facility]-8 HPI History of Present Illness Chief Complaint: Weakness [facility] Medical History COPD (chronic obstructive pulmonary disease) [...] 74.0 H Lymph % (Auto) 8.7 L [place] % (Auto) 12.0 H Eos % (Auto) [...] Clarity Clear Urine pH 7.0 Ur Specific Riva 1.010 Urine Protein 30 H Urine Glucose [...] your Primary Care Provider. Call [facility] ([phone]) or report to the closest Emergency Room. Call 911 if necessary. 12/10/225 <Electronically signed by Hector Fields DO> Cosigner Signature (if applicable): CC: Dr. Jayln Smith MD ~ Signed [facility] Work Phone: [phone] 369-242407-05-2023 History of Present illness Narrative* Jalyn Smith [...] PCP regarding patient. Patient was seen at [facility] this morning and BP was noted to be low at 90/56. Pt voiced to provider there that she has been having blood in her urine over the last couple of days as well. Dtr reports pt has "not been herself" over the last couple of days, more "dazed", and dtr did not know pt was [...] Lymph 1.00 - 4.00 k/uL 0.47 (L) [place]% % 14.5 Abs [place] <0.87 k/uL 1.50 (H) Eosin% % 0.6 [...] Negative Ketones, Urine Trace, Negative Negative Specific Riva, Ur 1.005 - 1.030 1.020 Hemoglobin/Blood,Ur Negative, [...] 116/66 Pulse 68 Ht 162.6 cm (5' 4") Wt 93.9 kg (207 lb) SpO2 96% [...] type - ICD9: 715.96, ICD10: M17.0 - [facility] 6. Anemia, unspecified type - ICD9: 285.9, ICD10: D64.9 7. Renal insufficiency - ICD9: 593.9, ICD10: N28.9 - BASIC METABOLIC PNL 8. Microscopic hematuria - ICD9: 599.72, ICD10: R31.29 9. Melena - ICD9: 578.1, ICD10: K92.1 Jalyn Smith MD documented in [facility]Mary [facility]23 Miscellaneous Notes* Telephone Encounter - Kalpana Sharif [...] Provider: Anthony RODRÍGUEZ PA-C documented in this encounterMary [facility]06-30-2023 Progress note Author Nisha Magallon [facility] December 05, 2022 1:14pm Note Date/Time December 05, 2022 1:14 pm [facility] [address] [place] [address] Progress Note - Wound Care 12/05/22 1312 MR#: [id number] Acct: [id number] Name: KANDI CORREIA Rep #:[id number] : 1945 77 From: Nisha Magallon DO PCP: Dr. Jalyn [place], MD Status:REG R CR Location: History of [...] Date Recorded By Document 11/07/22 09:25 AK [id number] 11/07/22 09:27 AK Document 11/21/22 09:11 RB [id number] 11/21/22 09:13 RB Document 12/05/22 11:03 AK [id number] 12/05/22 11:05 AK 11/07/22 11/21/22 12/05/22 09:25 09:11 11:03 - Today's Visit Information Type of service Follow-up Visit Follow-up Visit Follow-up Visit (Physician/CORROSION CONTROL ENGINEER (Physician/CORROSION CONTROL ENGINEER (Physician/CORROSION CONTROL ENGINEER ) ) ) Arrival Mode Ambulatory Ambulatory, [...] Date Recorded By Document 11/07/22 09:25 AK [id number] 11/07/22 09:27 AK Document 11/21/22 09:11 RB [id number] 11/21/22 09:13 RB Document 12/05/22 11:03 AK [id number] 12/05/22 11:05 AK 11/07/22 11/21/22 12/05/22 09:25 [...] Amt Large (67-100%) Medium (34-66%) -Granulation Quality [place] Conley -Slough/Fibrin Yes Yes -Necrosis Amt Small (1-33%) [...] Date Recorded By Document 11/07/22 10:03 MW [id number] 11/07/22 10:07 MW Document 11/21/22 09:34 MW [id number] 11/21/22 09:40 MW Document 12/05/22 09:37 JF [id number] 12/05/22 09:42 JF 11/07/22 11/21/22 12/05/22 10:03 [...] Date Recorded By Document 11/21/22 09:41 MW [id number] 11/21/22 09:42 MW Document 12/05/22 10:30 [id number] 12/05/22 10:31 11/21/22 12/05/22 09:41 10:30 Wound Care Center [...] Diabetes mellitus type: type 2 Diabetes mellitus mcc insulin use: without retirement use Diabetes mellitus complication status: with neurologic [...] symptoms worsen, or new symptoms arise. Note: [employer] speech recognition confectionery cooker software was used to create portions of this document. Sound-alike and misspelled words, as well as other confectionery cooker errors may be contained in the documentation. 12/05/22 1314 <Electronically signed by Nisha Magallon DO> Cosigner Signature (if applicable): CC: ~ Signed [facility] Work Phone: [phone]) 668-582506-30-2023 Miscellaneous Notes* Telephone Encounter - Tracy Peter [...] PCP regarding patient. Patient was seen at [facility] this morning and BP was noted to be low at 90/56. Pt voiced to provider there that she has been having blood in her urine over the last couple of days as well. Dtr reports pt has "not been herself" over the last couple of days, more "dazed", and dtr did not know pt was having blood in her urine until today. Daughter would like Dr. Smith to know that the provider there at the wound center, Dr. Hall, is ordering blood work and a UA for patient today. Tracy Peter RN documented in this encounterMary [facility]06-16-2023 Progress note Author [facility] November 21, 2022 1:12pm Note Date/Time November 21, 2022 10:4 4am [facility] [address] [place] [address] Progress Note - Wound Care 11/21/22 1041 MR#: [id number] Acct: [id number] Name: KANDI CORREIA Rep #:[id number] : 1945 77 From: Nisha Magallon DO [...] Recorded Date Recorded By Document 11/07/22 09:25 CO [id number] 11/07/22 09:27 AK Document 11/21/22 09:11 [id number] 11/21/22 09:13 RB 11/07/22 11/21/22 09:25 09:11 - Today's Visit Information Type of service Follow-up Visit Follow-up Visit (Physician/CORROSION CONTROL ENGINEER (Physician/CORROSION CONTROL ENGINEER ) ) Arrival Mode Ambulatory Ambulatory, Walker [...] Date Recorded By Document 11/07/22 09:25 AK [id number] 11/07/22 09:27 AK Document 11/21/22 09:11 RB [id number] 11/21/22 09:13 RB 11/07/22 11/21/22 09:25 09:11 [...] Amt Large (67-100%) Medium (34-66%) -Granulation Quality Con[place]ley -Slough/Fibrin Yes Yes -Necrosis Amt Small (1-33%) [...] Date Recorded By Document 11/07/22 10:03 MW [id number] 11/07/22 10:07 MW Document 11/21/22 09:34 MW [id number] 11/21/22 09:40 MW 11/07/22 11/21/22 10:03 09:34 [...] Date Recorded By Document 11/21/22 09:41 MW [id number] 11/21/22 09:42 MW 11/21/22 09:41 Wound Care [...] complication status: with neurologic complications Diabetes mellitus 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 Note: [employer] speech recognition confectionery cooker software was used to create portions of this document. Sound-alike and misspelled words, as well as other confectionery cooker errors may be contained in the documentation. 11/21/22 1312 <Electronically signed by Nisha Magallon DO> Cosigner Signature (if applicable): CC: ~ Signed [facility] Work Phone: [phone]) 434-742006-08-2023 History of Present illness Narrative* Selene Anaya [...] food insecurity completed: no documented in this encounterMary [facility]06-[facility]-2023 Progress note Author Nisha Magallon [facility] November 07, 2022 1:43pm Note Date/Time November 07, 2022 1:43p [facility] [address] [place] [address] Progress Note - Wound Care 11/07/22 1337 MR#: [id number] Acct: [id number] Name: KANDI CORREIA Rep #:[id number] : 1945 77 From: Nisha Magallon DO [...] Date Recorded By Document 11/07/22 09:25 AK [id number] 11/07/22 09:27 CO 11/07/22 09:25 WC - Today's Visit Information Type of service Follow-up Visit (Physician/CORROSION CONTROL ENGINEER ) Arrival Mode Ambulatory Patient Identification Verified [...] Date Recorded By Document 11/07/22 09:25 AK [id number] 11/07/22 09:27 CO 11/07/22 09:25 Wound Center Nurse 1 #2 [...] Attached -Granulation Amt Large (67-100%) -Granulation Quality [place] -Slough/Fibrin Yes -Necrosis Amt Small (1-33%) -Structure [...] Date Recorded By Document 11/07/22 10:03 MW [id number] 11/07/22 10:07 MW 11/07/22 10:03 Wound Center [...] Diabetes mellitus type: type 2 Diabetes mellitus mcc insulin use: without termite exterminator use Diabetes mellitus complication status: with neurologic [...] symptoms worsen, or new symptoms arise. Note: [employer] speech recognition confectionery cooker software was used to create portions of this document. Sound-alike and misspelled words, as well as other confectionery cooker errors may be contained in the documentation. 11/07/22 1343 <Electronically signed by Nisha Magallon DO> Cosigner Signature (if applicable): CC: ~ Signed [facility] Work Phone: [phone]) 277-282605-19-[address] Magallon [facility] October 24, 2022 3:11pm Note Date/Time October 24, 2022 3:11p [facility] [address] [place] [address] Progress Note - Wound Care 10/24/22 1509 MR#: [id number] Acct: [id number] Name: KANDI CORREIA Rep #:[id number] : 1945 77 From: Nisha Magallon DO [...] Date Recorded By Document 10/10/22 08:56 JF [id number] 10/10/22 09:10 JF Document 10/17/22 09:14 RB [id number] 10/17/22 09:22 RB Document 10/24/22 09:16 BM [id number] 10/24/22 09:24 BMF 10/10/22 10/17/22 10/24/22 08:56 09:14 09:16 WC - Today's Visit Information Type of service Follow-up Visit Follow-up Visit Follow-up Visit (Physician/CORROSION CONTROL ENGINEER (Physician/CORROSION CONTROL ENGINEER (Physician/CORROSION CONTROL ENGINEER ) ) ) Arrival Mode Ambulatory, Ambulatory, [...] Recorded Date Recorded By Document 10/10/22 08:56 [id number] 10/10/22 09:10 JF Document 10/17/22 09:14 RB [id number] 10/17/22 09:22 RB Document 10/24/22 09:16 [facility] [id number] 10/24/22 09:24 BMF 10/10/22 10/17/22 10/24/22 08:56 09:14 09:16 Wound [...] (67-100%) Medium (34-66%) Large (67-100%) -Granulation Quality Con[place] Conley Red -Slough/Fibrin Yes Yes No -Necrosis Amt [...] Date Recorded By Document 10/10/22 09:38 MW [id number] 10/10/22 09:51 MW Document 10/17/22 09:28 MW [id number] 10/17/22 09:39 MW Document 10/24/22 09:41 JF [id number] 10/24/22 09:45 JF 10/10/22 10/17/22 10/24/22 09:38 [...] -Expiration Date 07/09/27 04/08/27 -Product Lot Number [id number] -Percent Used 100 100 -Lot number of Saline Used [id number] -Bleeding Controlled with Pressure Pressure Pressure -Treatment [...] Recorded Date Recorded By Document 10/10/22 10:24 [id number] 10/10/22 10:24 Document 10/17/22 09:49 RB [id number] 10/17/22 09:50 RB Document 10/24/22 09:56 [id number] 10/24/22 09:58 RB 10/10/22 10/17/22 10/24/22 10:24 [...] Diabetes mellitus type: type 2 Diabetes mellitus mcc insulin use: without termite exterminator use Diabetes mellitus complication status: with neurologic [...] symptoms worsen, or new symptoms arise. Note: [employer] speech recognition confectionery cooker software was used to create portions of this document. Sound-alike and misspelled words, as well as other confectionery cooker errors may be contained in the documentation. 10/24/22 1511 <Electronically signed by Nisha Magallon DO> Cosigner Signature (if applicable): CC: ~ Signed [facility] Work Phone: 1(155) 275-582105-12-[address] Magallon [facility] October 17, 2022 2:06pm Note Date/Time October 17, 2022 2:06p [facility] [address] [place] [address] Progress Note - Wound Care 10/17/22 1401 MR#: [id number] Acct: [id number] Name: KANDI CORREIA Rep #:[id number] : 1945 77 From: Nisha Magallon DO [...] Recorded Date Recorded By Document 10/10/22 08:56 SHARON [id number] 10/10/22 09:10 JF Document 10/17/22 09:14 RB [id number] 10/17/22 09:22 RB 10/10/22 10/17/22 08:56 09:14 WC - Today's Visit Information Type of service Follow-up Visit Follow-up Visit (Physician/CORROSION CONTROL ENGINEER (Physician/CORROSION CONTROL ENGINEER ) ) Arrival Mode Ambulatory, Ambulatory, Walker [...] Recorded Date Recorded By Document 10/10/22 08:56 [id number] 10/10/22 09:10 JF Document 10/17/22 09:14 RB [id number] 10/17/22 09:22 RB 10/10/22 10/17/22 08:56 09:14 [...] Amt Large (67-100%) Medium (34-66%) -Granulation Quality [place] -Slough/Fibrin Yes Yes -Necrosis Amt Small (1-33%) [...] Recorded Client Recorded Date Recorded By Document 05/05/23 09:38 MW [id number] 10/10/22 09:51 MW Document 10/17/22 09:28 MW [id number] 10/17/22 09:39 MW 10/10/22 10/17/22 09:38 09:28 [...] -Expiration Date 07/09/27 04/08/27 -Product Lot Number [id number] -Percent Used 100 100 -Lot number of Saline Used [id number] -Bleeding Controlled with Pressure Pressure -Treatment Response [...] Recorded Date Recorded By Document 10/10/22 10:24 [id number] 10/10/22 10:24 JF Document 10/17/22 09:49 RB [id number] 10/17/22 09:50 RB 10/10/22 10/17/22 10:24 09:49 [...] Diabetes mellitus type: type 2 Diabetes mellitus mcc insulin use: without retirement use Diabetes mellitus complication status: with neurologic [...] her right posterior LE ulcer today per insurance professional guidelines using 100% of product, rehydrated with [...] symptoms worsen, or new symptoms arise. Note: [employer] speech recognition confectionery cooker software was used to create portions of this document. Sound-alike and misspelled words, as well as other confectionery cooker errors may be contained in the documentation. 10/17/22 1406 <Electronically signed by Nisha Magallon DO> Cosigner Signature (if applicable): CC: ~ Signed [facility] Work Phone: 1(749) 389-823105-05-[address] Magallon [facility] October 10, 2022 2:00pm Note Date/Time October 10, 2022 1:59pm [facility] [address] [place] [address] Progress Note - Wound Care 10/10/22 1357 MR#: [id number] Acct: [id number] Name: KANDI CORREIA Rep #:[id number] : 1945 77 From: Nisha Maagllon DO PCP: Dr. Jalyn Smith MD Status:REG [...] Recorded Date Recorded By Document 10/10/22 08:56 [id number] 10/10/22 09:10 SHARON 10/10/22 08:56 - Today's Visit Information Type of service Follow-up Visit (Physician/CORROSION CONTROL ENGINEER ) Arrival Mode Ambulatory, Walker Accompanied by [...] 0-10 Numeric Is Patient Pain Free? Yes DASH - Nurse 1 - General Ulcer Measurement Start: 10/10/22 08:56 Freq: Status: Active Protocol: Activity Type Activity Date Activity User E-sign Co-sign Detail Recorded Client Recorded Date Recorded By Document 10/10/22 08:56 [id number] 10/10/22 09:10 JF 10/10/22 08:56 Wound Center Nurse 1 #2 [...] Intact -Granulation Amt Large (67-100%) -Granulation Quality [place] -Slough/Fibrin Yes -Necrosis Amt Small (1-33%) -Necrotic [...] Calf (cm) 38.5 Left Ankle (cm) 23.0 - Nurse 2 - General Ulcer CM Notes Start: 10/10/22 08:56 Freq: Status: Active Protocol: Activity Type Activity Date Activity User E-sign Co-sign Detail Recorded Client Recorded Date Recorded By Document 10/10/22 09:38 MW [id number] 10/10/22 09:51 MW 10/10/22 09:38 Wound Center [...] Mesh -Expiration Date 07/09/27 -Product Lot Number [id number] -Percent Used 100 -Lot number of Saline Used [id number] -Bleeding Controlled with Pressure -Treatment Response Procedure [...] Recorded Date Recorded By Document 10/10/22 10:24 [id number] 10/10/22 10:24 10/10/22 10:24 Wound Care Center Nurse 3 [...] Diabetes mellitus type: type 2 Diabetes mellitus mcc insulin use: without retirement use Diabetes mellitus complication status: with neurologic [...] her right posterior LE ulcer today per insurance professional guidelines using 100% of product, rehydrated with [...] symptoms worsen, or new symptoms arise. Note: [employer] speech recognition confectionery cooker software was used to create portions of this document. Sound-alike and misspelled words, as well as other confectionery cooker errors may be contained in the documentation. 10/10/22 1400 <Electronically signed by Nisha Magallon DO> Cosigner Signature (if applicable): CC: ~ Signed [facility] Work Phone: 1(604) 312-446005-01-2023 History of Present illness Narrative* Darlene Urbano RN - 10/15/2022 9:28 AM EDT [facility] Telephonic Outreach Provider Action/FYI Patient reports going to Physical Therapy, feels sore - may have overdone it. Had to cancel appointment yesterday. Has been doing exercises at home. Encouraged her to return to Physical Therapy - patient report TKR is not an option due to other health issues. Breathing is "not good" more [place] - patient can't find rescue [...] to talk about today? Yes Based on global sourcing manager, the following disposition is advised: Symptoms present, not severe. Routed to: No Action Needed SAMMY Education Provided this Outreach: No Darlene Urbano RN October 15, 2022 10:08 AM * Darlene Urbano RN - 10/14/2022 2:04 PM EDT [facility] Telephonic Outreach Provider Action/FYI Contacted for: Routine Telephonic Outreach Contact made with patient: No, left message. Darlene Urbano RN October 14, 2022 2:16 PM documented in this encounterMary [facility]05-[facility]-2023 Miscellaneous Notes* Telephone Encounter - Darlene Urbano RN - 10/15/2022 10:13 AM EDT Patient phones requesting refills as follows: Requested Prescriptions Pending Prescriptions Disp Refills albuterol HFA (VENTOLIN HFA) 90 mcg/actuation inhaler 18 g 3 Sig: Inhale 2 Puffs as instructed every 4 hours as needed for wheezing/shortness of breath. Please review and advise. Darlene Urbano RN documented in this encounterMary [facility]04-28-[address] Magallon [facility] October 03, 2022 11:20am Note Date/Time October 03, 2022 11: 20am [facility] [address] [place] [address] Progress Note - Wound Care 10/03/22 1108 MR#: [id number] Acct: [id number] Name: KANDI CORREIA Rep #:[id number] : 1945 77 From: Nisha Magallon DO [...] Date Recorded By Document 09/12/22 08:27 MT [id number] 09/12/22 08:41 MT Document 09/19/22 08:28 RB [id number] 09/19/22 08:35 RB Document 09/26/22 08:51 RB [id number] 09/26/22 08:53 RB Edit Result 09/26/22 08:51 RB (1) [id number] 09/26/22 08:55 RB Document 10/03/22 08:32 DL Desktop 10/03/22 08:36 DL (1) Respiratory Rate (12-18) 18 => 20 H O2 L/MIN (L/min) => 2 09/12/22 09/19/22 09/26/22 08:27 08:28 08:51 - Today's Visit Information Type of service Follow-up Visit Follow-up Visit Follow-up Visit (Physician/CORROSION CONTROL ENGINEER (Physician/CORROSION CONTROL ENGINEER (Physician/CORROSION CONTROL ENGINEER ) ) ) Arrival Mode Ambulatory, Ambulatory [...] Pain Free? Yes Yes Yes 10/03/22 08:32 WC - Today's Visit Information Type of service Follow-up Visit (Physician/CORROSION CONTROL ENGINEER ) Arrival Mode Ambulatory, Walker Transfer Assistance [...] Date Recorded By Document 09/12/22 08:27 MT [id number] 09/12/22 08:41 MT Document 09/19/22 08:28 RB [id number] 09/19/22 08:35 RB Document 09/26/22 08:51 RB [id number] 09/26/22 08:53 RB Document 10/03/22 08:32 DL [...] Attached -Granulation Amt Medium (34-66%) -Granulation Quality [place] -Slough/Fibrin Yes -Necrosis Amt Medium (34-66%) -Necrotic [...] Amt Medium (34-66%) Medium (34-66%) -Granulation Quality Conley Conley -Slough/Fibrin Yes Yes -Necrosis Amt Large (67-100%) [...] Attached -Granulation Amt Medium (34-66%) -Granulation Quality [place] -Slough/Fibrin -Necrosis Amt Medium (34-66%) -Necrotic Tissue [...] 09/12/22 09:19 MW Document 09/19/22 09:18 MW [id number] 09/19/22 09:33 MW Document 09/26/22 09:01 MW [id number] 09/26/22 09:17 MW Document 10/03/22 08:51 MW [...] Date 05/08/27 05/08/27 05/08/27 -Product Lot Number [id number] 016 -Percent Used 100 100 100 -Lot number of Saline Used [id number] -Bleeding Controlled with Pressure Pressure Pressure -Treatment [...] Mesh -Expiration Date 07/09/27 -Product Lot Number [id number] -Percent Used 100 -Lot number of Saline Used [id number] -Bleeding Controlled with Pressure -Treatment Response Procedure [...] 09/12/22 09:24 MW Document 09/19/22 09:39 RB [id number] 09/19/22 09:40 RB Document 09/26/22 09:27 RB [id number] 09/26/22 09:28 RB 09/12/22 09/19/22 09/26/22 09:20 [...] Diabetes mellitus type: type 2 Diabetes mellitus mcc insulin use: without termite exterminator use Diabetes mellitus complication status: with neurologic [...] her right posterior LE ulcer today per insurance professional guidelines using 100% of product, rehydrated with [...] symptoms worsen, or new symptoms arise. Note: [employer] speech recognition confectionery cooker software was used to create portions of this document. Sound-alike and misspelled words, as well as other confectionery cooker errors may be contained in the documentation. 10/03/22 1120 <Electronically signed by Nisha Magallon DO> Cosigner Signature (if applicable): CC: ~ Signed [facility] Work Phone: 1(532) 164-797504-26-2023 History of Present illness Narrative* Jalyn Smith [...] SCRN Jalyn Smith MD documented in this encounterMary [facility]04-21-[address] Magallon [facility] September 26, 2022 9:46am Note Date/Time September 26, 2022 9:4 6am [facility] [address] [place] [address] Progress Note - Wound Care 09/26/22 0943 MR#: [id number] Acct: [id number] Name: KANDI CORREIA Rep #:[id number] : 1945 77 From: Nisha Magallon DO [...] Date Recorded By Document 09/12/22 08:27 MT [id number] 09/12/22 08:41 MT Document 09/19/22 08:28 RB [id number] 09/19/22 08:35 RB Document 09/26/22 08:51 RB [id number] 09/26/22 08:53 RB Edit Result 09/26/22 08:51 RB (1) [id number] 09/26/22 08:55 RB (1) Respiratory Rate (12-18) 18 => 20 H O2 L/MIN (L/min) => 2 09/12/22 09/19/22 09/26/22 08:27 08:28 08:51 WC - Today's Visit Information Type of service Follow-up Visit Follow-up Visit Follow-up Visit (Physician/CORROSION CONTROL ENGINEER (Physician/CORROSION CONTROL ENGINEER (Physician/CORROSION CONTROL ENGINEER ) ) ) Arrival Mode Ambulatory, Ambulatory [...] Date Recorded By Document 09/12/22 08:27 MT [id number] 09/12/22 08:41 MT Document 09/19/22 08:28 RB [id number] 09/19/22 08:35 RB Document 09/26/22 08:51 RB [id number] 09/26/22 08:53 RB 09/12/22 09/19/22 09/26/22 08:27 [...] Attached -Granulation Amt Medium (34-66%) -Granulation Quality [place] -Slough/Fibrin Yes -Necrosis Amt Medium (34-66%) -Necrotic [...] Amt Medium (34-66%) Medium (34-66%) -Granulation Quality Con[place] Con[place] -Slough/Fibrin Yes Yes -Necrosis Amt Large (67-100%) [...] 09/12/22 09:19 MW Document 09/19/22 09:18 MW [id number] 09/19/22 09:33 MW Document 09/26/22 09:01 MW [id number] 09/26/22 09:17 MW 09/12/22 09/19/22 09/26/22 08:45 09:18 09:01 Wound Center Nurse 2 #3 L POST LE -Time : 09:18 -Correct Patient Yes Yes -Correct Side, [...] cm Yes #2 R POST LE -Time 08: 09:19 09:05 -Correct Patient Yes Yes Yes [...] Date 05/08/27 05/08/27 05/08/27 -Product Lot Number [id number] 016 -Percent Used 100 100 100 -Lot number of Saline Used [id number] -Bleeding Controlled with Pressure Pressure Pressure -Treatment [...] 09/12/22 09:24 MW Document 09/19/22 09:39 RB [id number] 09/19/22 09:40 RB Document 09/26/22 09:27 RB [id number] 09/26/22 09:28 RB 09/12/22 09/19/22 09/26/22 09:20 [...] Diabetes mellitus type: type 2 Diabetes mellitus mcc insulin use: without retirement use Diabetes mellitus complication status: with neurologic [...] her right posterior LE ulcer today per insurance professional guidelines using 100% of product, rehydrated with [...] symptoms worsen, or new symptoms arise. Note: [employer] speech recognition confectionery cooker software was used to create portions of this document. Sound-alike and misspelled words, as well as other confectionery cooker errors may be contained in the documentation. 09/26/22 0946 <Electronically signed by Nisha Magallon DO> Cosigner Signature (if applicable): CC: ~ Signed [facility] Work Phone: [phone]) 785-556604-14-[address] Magallon [facility] September 19, 2022 2:59pm Note Date/Time September 19, 2022 2:3 9pm [facility] [address] [place] [address] Progress Note - Wound Care 09/19/22 1436 MR#: [id number] Acct: [id number] Name: INGRIDBOLIVARKANDI K Rep #:[id number] : 1945 77 From: Nisha Magallon DO [...] Date Recorded By Document 09/12/22 08:27 MT [id number] 09/12/22 08:41 MT Document 09/19/22 08:28 RB [id number] 09/19/22 08:35 RB 09/12/22 09/19/22 08:27 08:28 - Today's Visit Information Type of service Follow-up Visit Follow-up Visit (Physician/CORROSION CONTROL ENGINEER (Physician/CORROSION CONTROL ENGINEER ) ) Arrival Mode Ambulatory, Ambulatory Wheelchair [...] Date Recorded By Document 09/12/22 08:27 MT [id number] 09/12/22 08:41 MT Document 09/19/22 08:28 RB [id number] 09/19/22 08:35 RB 09/12/22 09/19/22 08:27 08:28 [...] Attached -Granulation Amt Medium (34-66%) -Granulation Quality [place] -Slough/Fibrin Yes -Necrosis Amt Medium (34-66%) -Necrotic [...] Attached -Granulation Amt Medium (34-66%) -Granulation Quality [place] -Slough/Fibrin Yes -Necrosis Amt Large (67-100%) Medium [...] 09/12/22 09:19 MW Document 09/19/22 09:18 MW [id number] 09/19/22 09:33 MW 09/12/22 09/19/22 08:45 09:18 [...] -Expiration Date 05/08/27 05/08/27 -Product Lot Number [id number] -Percent Used 100 100 -Lot number of Saline Used [id number] -Bleeding Controlled with Pressure Pressure -Treatment Response [...] 09/12/22 09:24 MW Document 09/19/22 09:39 RB [id number] 09/19/22 09:40 RB 09/12/22 09/19/22 09:20 09:39 [...] Diabetes mellitus type: type 2 Diabetes mellitus mcc insulin use: without retirement use Diabetes mellitus complication status: with neurologic [...] her right posterior LE ulcer today per insurance professional guidelines using 100% of product, rehydrated with hydrogel and covered with adaptic touch and secured with steristrips. She will not change the dressing on this for 1 week unless there is drainage and then would change gauze dressing. Reapply hydrogel Mon and Weds. Off-loading: The patient was instructed to avoid [...] symptoms worsen, or new symptoms arise. Note: [employer] speech recognition confectionery cooker software was used to create portions of this document. Sound-alike and misspelled words, as well as other confectionery cooker errors may be contained in the documentation. 09/19/22 1575 <Electronically signed by Nisha Magallon DO> Cosigner Signature (if applicable): CC: ~ Signed [facility] Work Phone: [phone]) 372-264004-14-2023 Miscellaneous Notes* Telephone Encounter - Amol Sinha RN - 09/19/2022 1:48 PM EDT [facility] Provider Action/FYI:Pt stated she has an appt with [facility] and don't know if her insurance will cover her. Informed pt to call her insurance company or call [facility] to see if they take her insurance. Pt stated understanding. Poonam, you've reached [facility], my name is Amol [...] by H@H RN Thank you for calling [facility]. If you develop any new symptoms, your condition worsens, then GO TO THE EMERGENCY ROOM OR CALL 911. If you have any questions, please call us back. [facility] Magallon [facility] September 12, 2022 2:08pm Note Date/Time September 12, 2022 2:08 pm [facility] [address] [place] [address] Progress Note - Wound Care 09/12/22 1406 MR#: [id number] Acct: [id number] Name: KANDI CORREIA Rep #:[id number] : 1945 77 From: Nisha Magallon DO [...] Recorded Date Recorded By Document 09/12/22 08:27 AK [id number] 09/12/22 08:41 AK 09/12/22 08:27 - Today's Visit Information Type of service Follow-up Visit (Physician/CORROSION CONTROL ENGINEER ) Arrival Mode Ambulatory, Wheelchair Accompanied by [...] Recorded Date Recorded By Document 09/12/22 08:27 AK [id number] 09/12/22 08:41 MT 09/12/22 08:27 Wound Center [...] Mesh -Expiration Date 05/08/27 -Product Lot Number [id number] -Percent Used 100 -Lot number of Saline Used [id number] -Bleeding Controlled with Pressure -Treatment Response Procedure [...] Diabetes mellitus type: type 2 Diabetes mellitus mcc insulin use: without termite exterminator use Diabetes mellitus complication status: with neurologic [...] her right posterior LE ulcer today per insurance professional guidelines using 100% of product, rehydrated with [...] symptoms worsen, or new symptoms arise. Note: [employer] speech recognition confectionery cooker software was used to create portions of this document. Sound-alike and misspelled words, as well as other confectionery cooker errors may be contained in the documentation. 09/12/22 1408 <Electronically signed by Nisha Magallon DO> Cosigner Signature (if applicable): CC: ~ Signed [facility] Work Phone: [phone]) 851-141204-06-2023 History of Present illness Narrative* Leslie Chapman MA - 09/11/2022 3:13 PM EDT POP[facility] HEALTH NAVIGATION OUTREACH Action/FYI September 11, 2022 Patient needs a 6 month follow up- 01/14/2023 Outcome/Action Lm on [facility] letter sent Leslie Chapman MA Patient Identified by Name and : NO Outreach Outcome/Action Unable to reach patient: Left message MyChart message sent Did you use a PCP flex slot to schedule this appointment? N/A Reason for Outreach [facility] [place], [place] Payer: Payor: [employer] MEDICARE / Plan: HU[employer] [...] with further orders/instructions. Thank you, Erin Urbano RNsection leaderTravel Coordinator Community Monitoring PSS Pool: Please assist patient [...] like to speak with a social work service team leader to help give you support for any [...] you up for automated weekly questionnaires through [employer]. This is an easy way for us [...] PtOutreach and End outreach. [facility] Magallon [facility] September 05, 2022 2:07pm Note Date/Time September 05, 2022 2:0 7pm [facility] [address] [place] [address] Progress Note - Wound Care 09/05/22 1405 MR#: [id number] Acct: [id number] Name: KANDI CORREIA Rep #:[id number] : 1945 77 From: Nisha Magallon DO [...] Date Recorded By Document 08/08/22 08:59 DL [id number] 08/08/22 09:08 DL Document 08/15/22 08:39 BMF [id number] 08/15/22 08:45 BMF Document 08/22/22 09:04 DL [id number] 08/22/22 09:14 DL Document 08/29/22 08:27 RB Desktop 08/29/22 08:41 RB Document 09/05/22 09:13 RB [id number] 09/05/22 09:26 RB 08/08/22 08/15/22 08/22/22 08:59 08:39 09:04 WC - Today's Visit Information Type of service Follow-up Visit Follow-up Visit Follow-up Visit (Physician/CORROSION CONTROL ENGINEER (Physician/CORROSION CONTROL ENGINEER (Physician/CORROSION CONTROL ENGINEER ) ) ) Arrival Mode Ambulatory, Ambulatory, [...] Yes Yes Yes 08/29/22 09/05/22 08:27 09:13 - Today's Visit Information Type of service Follow-up Visit Follow-up Visit (Physician/CORROSION CONTROL ENGINEER (Physician/CORROSION CONTROL ENGINEER ) ) Arrival Mode Ambulatory, Ambulatory, Walker [...] Date Recorded By Document 08/08/22 08:59 DL [id number] 08/08/22 09:08 DL Document 08/15/22 08:39 BMF [id number] 08/15/22 08:45 BMF Document 08/22/22 09:04 DL [id number] 08/22/22 09:14 DL Document 08/29/22 08:27 RB Desktop 08/29/22 08:41 RB Document 09/05/22 09:13 RB [id number] 09/05/22 09:26 RB 08/08/22 08/15/22 08/22/22 08:59 [...] (67-100%) Medium (34-66%) %) -Granulation Quality Red [place] -Slough/Fibrin Yes -Necrosis Amt Large (67-100%) Small [...] (1-33%) Medium (34-66%) %) -Granulation Quality Red [place] -Slough/Fibrin Yes -Necrosis Amt Large (67-100%) Large [...] Amt Medium (34-66%) Medium (34-66%) -Granulation Quality [place] -Slough/Fibrin Yes Yes -Necrosis Amt Medium (34-66%) [...] Attached -Granulation Amt Medium (34-66%) -Granulation Quality [place] -Slough/Fibrin Yes -Necrosis Amt Medium (34-66%) Medium [...] Date Recorded By Document 08/08/22 09:38 MW [id number] 08/08/22 10:13 MW Document 08/15/22 08:54 BMF [id number] 08/15/22 09:17 BMF Edit Result 08/15/22 08:54 BMF (1) [id number] 08/15/22 12:45 PL Edit Result 08/15/22 08:54 BMF (2) [id number] 08/18/22 07:11 PL Document 08/22/22 09:28 MW [id number] 08/22/22 09:50 MW Document 08/29/22 09:10 MW [id number] 08/29/22 09:48 MW Document 09/05/22 09:30 MW [id number] 09/05/22 09:52 MW (1) #3 L POST [...] -Expiration Date 03/08/27 05/08/27 -Product Lot Number [id number] -Percent Used 100 100 -Lot number of Saline Used [id number] -Topical Lidocaine (%) 5 -Bleeding Controlled with [...] 2 #3 L POST LE -Time 09:10 09:31 -Correct Patient Yes Yes -Correct Side, [...] Date 05/08/27 05/08/27 -Product Lot Number 100 [id number] -Percent Used 100 100 -Lot number of Saline Used [id number] -Topical Lidocaine (%) -Bleeding Controlled with Pressure [...] Date Recorded By Document 08/08/22 10:26 DL [id number] 08/08/22 10:34 DL Document 08/15/22 09:28 ML [id number] 08/15/22 09:29 ML Document 08/22/22 10:09 RB [id number] 08/22/22 10:11 RB Document 08/29/22 10:06 F [id number] 08/29/22 10:07 BMF Document 09/05/22 10:08 DL [id number] 09/05/22 10:10 DL 08/08/22 08/15/22 08/22/22 10:26 [...] Diabetes mellitus type: type 2 Diabetes mellitus mcc insulin use: without termite exterminator use Diabetes mellitus complication status: with neurologic [...] her right posterior LE ulcer today per insurance professional guidelines using 100% of product, rehydrated with [...] symptoms worsen, or new symptoms arise. Note: [employer] speech recognition confectionery cooker software was used to create portions of this document. Sound-alike and misspelled words, as well as other confectionery cooker errors may be contained in the documentation. 09/05/22 1407 <Electronically signed by Nisha Magallon DO> Cosigner Signature (if applicable): CC: ~ Signed [facility] Work Phone: [phone]) 408-952103-31-[address] Magallon [facility] September 05, 2022 2:05pm Note Date/Time August 29, 2022 1:0 5pm [facility] [address] [place] [address] Progress Note - Wound Care 08/29/22 1305 MR#: [id number] Acct: [id number] Name: KANDI CORREIA Rep #:[id number] : 1945 76 From: Nisha Magallon DO [...] Date Recorded By Document 08/08/22 08:59 DL [id number] 08/08/22 09:08 DL Document 08/15/22 08:39 BMF [id number] 08/15/22 08:45 BMF Document 08/22/22 09:04 DL [id number] 08/22/22 09:14 DL Document 08/29/22 08:27 RB Desktop 08/29/22 08:41 RB 08/08/22 08/15/22 08/22/22 08:59 08:39 09:04 - Today's Visit Information Type of service Follow-up Visit Follow-up Visit Follow-up Visit (Physician/CORROSION CONTROL ENGINEER (Physician/CORROSION CONTROL ENGINEER (Physician/CORROSION CONTROL ENGINEER ) ) ) Arrival Mode Ambulatory, Ambulatory, [...] Visit Information Type of service Follow-up Visit (Physician/CORROSION CONTROL ENGINEER ) Arrival Mode Ambulatory, Walker Transfer Assistance [...] Date Recorded By Document 08/08/22 08:59 DL [id number] 08/08/22 09:08 DL Document 08/15/22 08:39 [facility] [id number] 08/15/22 08:45 BMF Document 08/22/22 09:04 DL [id number] 08/22/22 09:14 DL Document 08/29/22 08:27 RB [...] (67-100%) Medium (34-66%) %) -Granulation Quality Red [place] -Slough/Fibrin Yes -Necrosis Amt Large (67-100%) Small [...] (1-33%) Medium (34-66%) %) -Granulation Quality Red [place] -Slough/Fibrin Yes -Necrosis Amt Large (67-100%) Large [...] Attached -Granulation Amt Medium (34-66%) -Granulation Quality [place] -Slough/Fibrin Yes -Necrosis Amt Medium (34-66%) -Necrotic [...] Attached -Granulation Amt Medium (34-66%) -Granulation Quality [place] -Slough/Fibrin Yes -Necrosis Amt Medium (34-66%) -Necrotic [...] Date Recorded By Document 08/08/22 09:38 MW [id number] 08/08/22 10:13 MW Document 08/15/22 08:54 BMF [id number] 08/15/22 09:17 BMF Edit Result 08/15/22 08:54 BMF (1) [id number] 08/15/22 12:45 PL Edit Result 08/15/22 08:54 BMF (2) [id number] 08/18/22 07:11 PL Document 08/22/22 09:28 MW [id number] 08/22/22 09:50 MW Document 08/29/22 09:10 MW [id number] 08/29/22 09:48 MW (1) #3 L POST [...] -Expiration Date 03/08/27 05/08/27 -Product Lot Number [id number] -Percent Used 100 100 -Lot number of Saline Used [id number] -Topical Lidocaine (%) 5 -Bleeding Controlled with [...] Used 100 -Lot number of Saline Used [id number] -Topical Lidocaine (%) -Bleeding Controlled with Pressure [...] Date Recorded By Document 08/08/22 10:26 DL [id number] 08/08/22 10:34 DL Document 08/15/22 09:28 ML [id number] 08/15/22 09:29 ML Document 08/22/22 10:09 RB [id number] 08/22/22 10:11 RB Document 08/29/22 10:06 [facility] [id number] 08/29/22 10:07 BMF 08/08/22 08/15/22 08/22/22 10:26 [...] complication status: with neurologic complications Diabetes mellitus termite exterminator insulin use: without termite exterminator use Diabetes mellitus type: type 2 Qualified [...] her right posterior LE ulcer today per insurance professional guidelines using 100% of product, rehydrated with [...] symptoms worsen, or new symptoms arise. Note: [employer] speech recognition confectionery cooker software was used to create portions of this document. Sound-alike and misspelled words, as well as other confectionery cooker errors may be contained in the documentation. 09/05/22 1405 <Electronically signed by Nisha Magallon DO> Cosigner Signature (if applicable): CC: ~ Signed [facility] Work Phone: [phone]) 352-556503-27-2023 Miscellaneous Notes* Telephone Encounter - Pema Nael - 09/01/2022 3:18 PM EDT Left VM relaying the info below. ===View-only below this line=== ----- Message ----- From: Herminia Carrera APRN.CNP Sent: 09/01/2022 1:05 PM EDT To: Pema Nayak So her last CTA was in April and was stable. How about we plan to repeat her scan this April and she can see Dr. Darby in [facility] at that time? If OK with pt ----- Message ----- From: Pema Nayak Sent: 08/27/2022 12:25 PM EDT To: Herminia Carrera APRN.CNP, * /[facility]. She called wanting to schedule for a f/up, is there additional testing that needs done AND can she do a virtual/phone visit? documented in this [facility] Magallon [facility] August 22, 2022 1:45pm Note Date/Time August 22, 2022 1:4 5pm [facility] [address] [place] [address] Progress Note - Wound Care 08/22/22 1341 MR#: [id number] Acct: [id number] Name: KANDI CORREIA Rep #:[id number] : 1945 76 From: Nisha Magallon DO [...] Start: 08/08/22 08:59 Freq: Status: Active Protocol: DASH.LOWEXT Activity Type Activity Date Activity User E-sign Co-sign Detail Recorded Client Recorded Date Recorded By Document 08/08/22 08:59 DL [id number] 08/08/22 09:08 DL Document 08/15/22 08:39 BMF [id number] 08/15/22 08:45 BMF Document 08/22/22 09:04 DL [id number] 08/22/22 09:14 DL 08/08/22 08/15/22 08/22/22 08:59 08:39 09:04 WC - Today's Visit Information Type of service Follow-up Visit Follow-up Visit Follow-up Visit (Physician/CORROSION CONTROL ENGINEER (Physician/CORROSION CONTROL ENGINEER (Physician/CORROSION CONTROL ENGINEER ) ) ) Arrival Mode Ambulatory, Ambulatory, [...] Date Recorded By Document 08/08/22 08:59 DL [id number] 08/08/22 09:08 DL Document 08/15/22 08:39 BMF [id number] 08/15/22 08:45 BMF Document 08/22/22 09:04 DL [id number] 08/22/22 09:14 DL 08/08/22 08/15/22 08/22/22 08:59 [...] (67-100%) Medium (34-66%) %) -Granulation Quality Red [place] -Slough/Fibrin Yes -Necrosis Amt Large (67-100%) Small [...] (1-33%) Medium (34-66%) %) -Granulation Quality Red [place] -Slough/Fibrin Yes -Necrosis Amt Large (67-100%) Large [...] Date Recorded By Document 08/08/22 09:38 MW [id number] 08/08/22 10:13 MW Document 08/15/22 08:54 BMF [id number] 08/15/22 09:17 BMF Edit Result 08/15/22 08:54 BMF (1) [id number] 08/15/22 12:45 PL Edit Result 08/15/22 08:54 BMF (2) [id number] 08/18/22 07:11 PL Document 08/22/22 09:28 MW [id number] 08/22/22 09:50 MW (1) #3 L POST [...] -Expiration Date 03/08/27 05/08/27 -Product Lot Number [id number] -Percent Used 100 100 -Lot number of Saline Used [id number] -Topical Lidocaine (%) 5 -Bleeding Controlled with [...] Date Recorded By Document 08/08/22 10:26 DL [id number] 08/08/22 10:34 DL Document 08/15/22 09:28 ML [id number] 08/15/22 09:29 ML Document 08/22/22 10:09 RB [id number] 08/22/22 10:11 RB 08/08/22 08/15/22 08/22/22 10:26 [...] Diabetes mellitus type: type 2 Diabetes mellitus mcc insulin use: without retirement use Diabetes mellitus complication status: with neurologic [...] her right posterior LE ulcer today per insurance professional guidelines using 100% of product, rehydrated with [...] symptoms worsen, or new symptoms arise. Note: [employer] speech recognition confectionery cooker software was used to create portions of this document. Sound-alike and misspelled words, as well as other confectionery cooker errors may be contained in the documentation. 08/22/22 1345 <Electronically signed by Nisha Magallon DO> Cosigner Signature (if applicable): CC: ~ Signed [facility] Work Phone: 1(932) 801-924103-10-[address] Magallon [facility] August 15, 2022 12:50pm Note Date/Time August 15, 2022 11: 58am [facility] [address] [place] [address] Progress Note - Wound Care 08/15/22 1157 MR#: [id number] Acct: [id number] Name: KANDI CORREIA Rep #:[id number] : 1945 76 From: Nisha Magallon DO [...] Date Recorded By Document 08/08/22 08:59 DL [id number] 08/08/22 09:08 DL Document 08/15/22 08:39 BMF [id number] 08/15/22 08:45 BMF 08/08/22 08/15/22 08:59 08:39 WC - Today's Visit Information Type of service Follow-up Visit Follow-up Visit (Physician/CORROSION CONTROL ENGINEER (Physician/CORROSION CONTROL ENGINEER ) ) Arrival Mode Ambulatory, Ambulatory, Walker [...] Date Recorded By Document 08/08/22 08:59 DL [id number] 08/08/22 09:08 DL Document 08/15/22 08:39 BM [id number] 08/15/22 08:45 BMF 08/08/22 08/15/22 08:59 08:39 Wound Center Nurse [...] Date Recorded By Document 08/08/22 09:38 MW [id number] 08/08/22 10:13 MW Document 08/15/22 08:54 [facility] [id number] 08/15/22 09:17 [facility] 08/08/22 08/15/22 09:38 08:54 Wound Center Nurse [...] Mesh -Expiration Date 03/08/27 -Product Lot Number [id number] -Percent Used 100 -Lot number of Saline Used [id number] -Topical Lidocaine (%) 5 -Bleeding Controlled with [...] Date Recorded By Document 08/08/22 10:26 DL [id number] 08/08/22 10:34 DL Document 08/15/22 09:28 ML [id number] 08/15/22 09:29 ML 08/08/22 08/15/22 10:26 09:28 [...] Diabetes mellitus type: type 2 Diabetes mellitus mcc insulin use: without termite exterminator use Diabetes mellitus complication status: with neurologic [...] her right posterior LE ulcer today per insurance professional guidelines using 100% of product, rehydrated with [...] symptoms worsen, or new symptoms arise. Note: [employer] speech recognition confectionery cooker software was used to create portions of this document. Sound-alike and misspelled words, as well as other confectionery cooker errors may be contained in the documentation. 08/15/22 1250 <Electronically signed by Nisha Magallon DO> Cosigner Signature (if applicable): CC: ~ Signed [facility] Work Phone: 1(304) 369-491003-03-[address] Magallon [facility] August 08, 2022 1:58pm Note Date/Time August 08, 2022 1:48 pm [facility] [address] [place] [address] Progress Note - Wound Care 08/08/22 1235 MR#: [id number] Acct: [id number] Name: KANDI CORREIA Rep #:[id number] : 1945 76 From: Nisha Magallon DO [...] Recorded Date Recorded By Document 08/08/22 08:59 [id number] 08/08/22 09:08 DL 08/08/22 08:59 WC - Today's Visit Information Type of service Follow-up Visit (Physician/CORROSION CONTROL ENGINEER ) Arrival Mode Ambulatory, Walker Transfer Assistance [...] Date Recorded By Document 08/08/22 08:59 DL [id number] 08/08/22 09:08 DL 08/08/22 08:59 Wound Center [...] Date Recorded By Document 08/08/22 09:38 MW [id number] 08/08/22 10:13 MW 08/08/22 09:38 Wound Center [...] Date Recorded By Document 08/08/22 10:26 DL [id number] 08/08/22 10:34 DL 08/08/22 10:26 Wound Care [...] Diabetes mellitus type: type 2 Diabetes mellitus mcc insulin use: without termite exterminator use Diabetes mellitus complication status: with neurologic [...] symptoms worsen, or new symptoms arise. Note: [employer] speech recognition confectionery cooker software was used to create portions of this document. Sound-alike and misspelled words, as well as other confectionery cooker errors may be contained in the documentation. 08/08/22 9220 <Electronically signed by Nisha Magallon DO> Cosigner Signature (if applicable): CC: ~ Signed [facility] Work Phone: 1([phone]) 102-850503-02-2023 History of Present illness Narrative* Darlene Urbano RN - 08/07/2022 8:32 AM EST [facility] TELEPHONIC OUTREACH Provider Action/FYI: 2nd attempt Last [facility] CDM contact 04/07/22 Contact made with patient: No - Left message Poonam my name is Darlene Urbano RN your Ev[facility] I am calling today for your bi-weekly [...] RN - 08/06/2022 3:33 PM EST [facility] TELEPHONIC OUTREACH Provider Action/FYI: Contact made with patient: No - Left message Poonam my name is Darlene Urbano RN your Evaporator [facility] I am calling today for your bi-weekly check in. I am sorry I missed your call. I will reach out to you again tomorrow. (if the third call I will reach out to you again next week) Enter next patient outreach date for the following business day using the Track Pt Outreach. End outreach. documented in this [facility] Magallon [facility] August 01, 2022 1:20pm Note Date/Time August 01, 2022 1:20pm [facility] [address] [place] [address] Progress Note - Wound Care 08/01/22 1315 MR#: [id number] Acct: [id number] Name: KANDI CORREIA Rep #:[id number] : 1945 76 From: Nisha Magallon DO [...] Date Recorded By Document 07/25/22 09:08 DL [id number] 07/25/22 09:21 DL Edit Result 07/25/22 09:08 DL (1) [id number] 07/25/22 09:37 DL Document 08/01/22 09:18 ML [id number] 08/01/22 09:35 ML (1) Height => 5 [...] Bottom => <Entered> (a) Preferred language => Tajik Able to Read => Yes Able to [...] Decline in Ability to Perform => Ambulation Cultural/Episcopal Needs that may affect => No Treatment Plan Would you allow our hospital mill machinist to => No meet you for the purpose of spiritual/ emotional support? Pharmaceutical Engineer to contact place of nondenominational => No Diagnostic Tests Ordered - Person Taught => Patient,Family Discharge Instructions - Person Taught => Patient,Family Dressing Your Wound - Person Taught => Patient,Family *Welcome to the Wound Center - Person Taught => Patient,Family 07/25/22 08/01/22 09:08 09:18 WC - Today's Visit Information Type of service Initial Visit Follow-up Visit (Physician/CORROSION CONTROL ENGINEER ) Arrival Mode Ambulatory, Ambulatory, Walker Walker [...] Bottom <Entered> (a) Communication Assessment Preferred language Tajik Able to Read Yes Able to Write [...] Recent Decline in Ability to Perform Ambulation Culture/Episcopal/Pharmaceutical Engineer Cultural/Episcopal Needs that may affect No Treatment Plan Would you allow our hospital mill machinist to No meet you for the purpose of spiritual/ emotional support? Pharmaceutical Engineer to contact place of nondenominational No Teaching: Wound Center Diagnostic Tests Ordered [...] Date Recorded By Document 07/25/22 09:08 DL [id number] 07/25/22 09:21 DL Edit Result 07/25/22 09:08 DL (1) [id number] 07/25/22 09:37 DL Document 08/01/22 09:18 ML [id number] 08/01/22 09:35 ML (1) #3 L POST [...] Date Recorded By Document 07/25/22 10:05 MW [id number] 07/25/22 10:26 MW Edit Result 07/25/22 10:05 MW (1) [id number] 07/28/22 06:54 PL Document 08/01/22 09:51 MW [id number] 08/01/22 10:12 MW (1) #3 L POST [...] Date Recorded By Document 07/25/22 10:36 DL [id number] 07/25/22 10:42 DL Document 08/01/22 10:19 RB [id number] 08/01/22 10:21 RB 07/25/22 08/01/22 10:36 10:19 [...] Diabetes mellitus type: type 2 Diabetes mellitus mcc insulin use: without retirement use Diabetes mellitus complication status: with neurologic [...] symptoms worsen, or new symptoms arise. Note: [employer] speech recognition confectionery cooker software was used to create portions of this document. Sound-alike and misspelled words, as well as other confectionery cooker errors may be contained in the documentation. 08/01/22 1320 <Electronically signed by Nisha Magallon DO> Cosigner Signature (if applicable): CC: ~ Signed [facility] Work Phone: 1(949) 315-455402-17-2023 History and physical note Author Dr. Magallon [facility] July 25, 2022 3:03pm Note Date/Time July 25, 2022 2:44pm [facility] [address] [place] [address] H&P Exam - Wound Care 07/25/22 1437 MR#: [id number] Acct: [id number] Name: KANDI CORREIA Rep #:[id number] : 1945 76 From: Nisha Magallon DO [...] Denies any prior cultures being taken. [facility] Medical History COPD (chronic obstructive pulmonary disease) [...] Date Recorded By Document 07/25/22 09:08 DL [id number] 07/25/22 09:21 DL Edit Result 07/25/22 09:08 DL (1) [id number] 07/25/22 09:37 DL (1) Height => 5 [...] Bottom => <Entered> (a) Preferred language => Tajik Able to Read => Yes Able to [...] Decline in Ability to Perform => Ambulation Cultural/Episcopal Needs that may affect => No Treatment Plan Would you allow our hospital mill machinist to => No meet you for the purpose of spiritual/ emotional support? Pharmaceutical Engineer to contact place of nondenominational => No Diagnostic Tests Ordered - Person [...] Bottom <Entered> (a) Communication Assessment Preferred language Tajik Able to Read Yes Able to Write [...] Recent Decline in Ability to Perform Ambulation Culture/Episcopal/Pharmaceutical Engineer Cultural/Episcopal Needs that may affect No Treatment Plan Would you allow our hospital mill machinist to No meet you for the purpose of spiritual/ emotional support? Pharmaceutical Engineer to contact place of nondenominational No Teaching: Wound Center Diagnostic Tests Ordered [...] Date Recorded By Document 07/25/22 09:08 DL [id number] 07/25/22 09:21 DL Edit Result 07/25/22 09:08 DL (1) [id number] 07/25/22 09:37 DL (1) #3 L POST [...] Date Recorded By Document 07/25/22 10:05 MW [id number] 07/25/22 10:26 MW 07/25/22 10:05 Wound Center [...] Date Recorded By Document 07/25/22 10:36 DL [id number] 07/25/22 10:42 DL 07/25/22 10:36 Wound Care [...] Diabetes mellitus type: type 2 Diabetes mellitus mcc insulin use: without retirement use Diabetes mellitus complication status: with neurologic [...] symptoms worsen, or new symptoms arise. Note: [employer] speech recognition confectionery cooker software was used to create portions of this document. Sound-alike and misspelled words, as well as other confectionery cooker errors may be contained in the documentation. 07/25/22 1503 <Electronically signed by Nisha Magallon DO> Cosigner Signature (if applicable): CC: ~ Signed [facility] Work Phone: 1(485) 920-437302-13-2023 Miscellaneous Notes* Telephone Encounter - Natalie Gonzalez Ma - 07/21/2022 5:10 PM EST Last office visit: 07/17/22 F/u scheduled: none Ditropan was already refilled to [facility] pharmacy in Jun 2022 Natalie Gonzalez Ma documented in this [facility]Mary [facility] History of Present illness Narrative* Jalyn Smith [...] medications Jalyn Smith MD documented in this encounterMary [facility]02-09-2023 Instructions* Patient Instructions* Kalpana Sharif LPN - 07/17/2022 10:18 AM EST User name [id number] documented in this encounterMary [facility] Hospital02-08-2023 Miscellaneous Notes* Telephone Encounter - Casandra Burrell [...] you could fax order for this to [facility] wound care. Please advise daughter Karson. documented in this encounterMary [facility] Hospital02-01-2023 History of Present illness Narrative* Darlene Urbano RN - 07/09/2022 11:04 AM EST [facility] TELEPHONIC OUTREACH Provider Action/FYI: 2nd attempt Last PCC CDM contact 04/07/22 Since previous CD Telephonic Outreach: PULAnthony Mayfield visit Contact made with patient: No - Left message Poonam my name is Darlene Urbano RN your Evaporator [facility] I am calling today for your bi-weekly [...] RN - 07/08/2022 3:45 PM EST [facility] TELEPHONIC OUTREACH Provider Action/FYI: Last PCC CDM contact 04/07/22 Since previous CD Telephonic Outreach: REYMUNDO Mayfield visit Contact made with patient: No - Left message Helgray my name is Darlene Urbano RN your Evaporator [facility] the [facility] I am calling today for your bi-weekly check in. I am sorry I missed your call. I will reach out to you again tomorrow. (if the third call I will reach out to you again next week) Enter next patient outreach date for the following business day using the Track Pt Outreach. End outreach. documented in this encounterMary [facility] Hospital01-26-2023 Miscellaneous Notes* Telephone Encounter - Staci Zamorano LPN - 07/03/2022 8:25 AM EST Patient phones requesting refills as follows: Requested Prescriptions Pending Prescriptions Disp Refills arformoterol (BROVANA) 15 mcg/2 mL nebulizer solution 360 mL 1 Sig: Inhale 2 mL as instructed every 12 hours. May mix with Budesonide neb twice a day. Please review and advise. Staci Zamorano LPN [facility] this [facility] Miscellaneous Notes* Telephone Encounter - Natalie Gonzalez Ma - 06/30/2022 6:25 PM EST These were already refilled today. Natalie Gonzalez Ma documented in this encounterMary [facility]01-19-2023 Miscellaneous Notes* Telephone Encounter - Casandra Burrell [...] you. Casandra Burrell LPN documented in this encounterMary [facility] Hospital01-13-2023 History of Present illness Narrative* Zackery Mayfield MD - 06/20/2022 10:00 AM EST Images from the original note were not included. . [facility] [place] Note Patient name: Kandi Correia PCP: Jalyn Smith MD CC: Follow-up COPD HPI: Kandi Correia 76 year old obese female former smoker for 45 years having quit in 2011 with PMH significant for HTN, fibromyalgia, descending aortic aneurysm with dissection, MICHEL not on CPAP andCOPD (FEV1 0.68 L 32%) on chronic oxygen former patient of Dr. Avila[place]. Patient had previously been on Trelegy Ellipta [...] No recent hospitalizations for her COPD. DME: [facility] DATA: PFT: Review pulmonary function test shows [...] Abs Lymph 1.00 - 4.00 k/uL 1.07 [place]% % 10.7 Abs [place] <0.87 k/uL 0.62 Eosin% % 3.6 Abs Eosin <0.46 k/uL 0.21 Baso% % 1.0 Abs Baso <0.11 k/uL 0.06 Immature Gran % % 0.5 Abs Immature Gran <0.10 k/uL 0.03 NRBC /100 WBC 0.0 Absolute nRBC <0.01 k/uL <0.01 Diff Type Auto Imaging / Diagnostic Studies: DATE OF EXAM: Apr 18 2022 1:41PM [facility] 0123 - CTA CHEST (NONGATED) W IVCON [...] Cardiac chambers are unremarkable in appearance. Stable Foley type B dissection extending from the distal [...] acute osseous abnormality identified. IMPRESSION: Stable appearing Foley type B dissection. Possible peripheral and posterior [...] -Weight loss advised Zackery Mayfield MD [facility] [place] documented in this encounterMary [facility] Hospital01-06-2023 History of Present illness Narrative* Verónica Sanchez MA - 06/13/2022 11:52 AM EST POPULATION HEALTH NAVIGATION OUTREACH Action/FYI Patient is on [facility] list for below gaps and needs appt to address : J43.9 - Emphysema of lung ([facility]) - [id number] Last Billed 03/20/2022
E11.9 - Type 2 diabetesmellitus without complication, without long-term current use of insulin ([facility]) - [id number] Last Billed 03/20/2022
F33.41 - Recurrent major depression in partial remission ([facility]) - [id number] LastBilled 08/16/2021
J96.11 - Chronic respiratory failure with hypoxia ([facility]) - AXUQIB14 Last Billed 08/16/2021
Care gaps/appts to address: Return in about 6 months (around 09/18/2022). DILATED RETINAL EXAM MAMMOGRAM COLORECTAL CANCER SCREENING ADVANCE DIRECTIVE DISCUSSION Outcomes: Left message for patient to call me back directly to schedule. Also sent Truvisot message. Pt identified by name and : NO Outreach Outcome/Action Unable to reach patient: Left message E[employer]hart message sent Did you use a PCP flex slot to schedule this appointment? N/A Reason for Outreach HCC or suspected condition Payer: Payor: [employer] MEDICARE / Plan: HU[employer] [...] 13, 2022 11:53 AM documented in this encounterMary [facility] Hospital01-03-2023 History of Present illness Narrative* Darlene Urbano RN - 06/10/2022 9:07 AM EST [facility] TELEPHONIC OUTREACH Provider Action/FYI: 2nd attempt Last PCC CDM contact 04/07/22 Appointments for Next 60 Days Date Time Provider Dept Phone 06/20/2022 10:00 AM ZACKERY MAYFIELD [phone] Contact made with patient: No - Left message Poonam my name is Darlene Urbano RN your Evaporator [facility] I am calling today for your bi-weekly check in. I am sorry I missed your call. I will reach out to you again tomorrow. (if the third call I will reach out to you again next week) Enter next patient outreach date for the following using the Track Pt Outreach. End outreach. documented in this encounterMary [facility]12-30-2022 History of Present illness Narrative* Darlene Urbano RN - 06/06/2022 11:25 AM EST INSIGHT CDM TELEPHONIC OUTREACH Provider Action/FYI: Last PCC CDM contact 04/07/22 Appointments for Next 60 Days Date Time Provider Dept Phone 06/20/2022 10:00 AM ZACKERY MAYFIELD [phone] Contact made with patient: No - Left message Poonam my name is Darlene Urbano RN your Evaporator [facility] the [facility] I am calling today for your bi-weekly check in. I am sorry I missed your call. I will reach out to you again tomorrow. (if the third call I will reach out to you again next week) Enter next patient outreach date for the following business day using the Track Pt Outreach. End outreach. documented in this encounterMary [facility] Hospital12-01-2022 History of Present illness Narrative* Darlene Urbano RN - 05/08/2022 12:43 PM EST [facility] TELEPHONIC OUTREACH Provider Action/FYI: 2nd attempt Since previous [facility] Telephonic Outreach: Thoracic aorta CT scan Appointments for Next 60 Days Date Time Provider Location Dept Phone 06/20/2022 10:00 AM ZACKERY MAYFIELD [phone] Contact made with patient: No - Left message Poonam my name is Darlene Urbano RN your Evaporator [facility] the [facility] I am calling today for your bi-weekly [...] RN - 05/07/2022 4:18 PM EST [facility] TELEPHONIC OUTREACH Provider Action/FYI: Contact made with patient: No - Unable to leave message Entered next patient outreach date for the following business day, if third call please enter next outreach date for one week in the Track Pt. Outreach - End Outreach documented in this encounterMary [facility] Hospital11-11-2022 Miscellaneous Notes* Telephone Encounter - Pema Nayak - 04/18/2022 4:31 PM EST Left VM to schedule OV. Annual f/up - Dissecting aneurysm of thoracic aorta (CT on 04/18/22)(Dr Perry Patient) documented in this encounterMary [facility]an Hospital11-11-2022 History of Present illness Narrative* Rolf Mcfadden [...] 2022 TIME: 3:56 PM documented in this encounterMary [facility]an Hospital11-01-2022 History of Present illness Narrative* Darlene Urbano [...] cough. Reminded patient about [facility] [phone] Contact made with patient: Yes Patient identified [...] like to speak with a social work service team leader to help give you support for any [...] you up for automated weekly questionnaires through [employer]. This is an easy way for us [...] Discontinued questionnaire series. Updated inSight status to "telephonic" Appointments for Next 60 Days Date Time Provider Location Dept Phone 04/18/2022 1:00 PM [facility] (I-STAT) Nila Hernandez [phone] [facility] [phone] Contact Made with Patient: Yes Patient identified by name and . Discussed care with patient Poonam urbano name is Darlene Urbano RN your Evaporator from Jalyn Smith MD office at the [facility]. I am reaching out today because I [...] to telephonic outreach: Yes (Change enrollment to "Telephonic" under inSight status next outreach in two [...] Discontinued questionnaire series. Updated inSight status to "telephonic" Contact Made with Patient: No, first attempt, left message. Poonam Correia. This is Darlene Urbano RN your Evaporator from the [facility]. I am calling to check in with you concerning the MyChart questionnaire you have been receiving from me.I will call you again tomorrow and am looking forward to speaking with you. (Evaporator enters next day in "next patient outreach") documented in this encounterMary [facility] Hospital10-18-2022 Miscellaneous Notes* Telephone Encounter - Violeta Chandra RN - 03/25/2022 10:35 AM EDT [facility] OUTREACH Provider Action/FYI: Patient misplaced number to call and schedule Cologuard diamond picker. This nurse was given a number to call, by the time patient was called back, patient had found the information on line. Hello, you've reached [facility], my name is Violeta Chandra RN, I'm a registered nurse, and we [...] please call us back. documented in this encounterMary [facility] Hospital10-13-2022 History of Present illness Narrative* Jalyn Smith [...] (FLONASE) 50 mcg/actuation nasal spray Use 1 [place] in each nostril once daily. ipratropium-albuterol (DUONEB) [...] Pulse (!) 59 Ht 162.6 cm (5' 4") Wt 94.8 kg (209 lb) SpO2 95% [...] I71.00 - CONSULT TO VASCULAR SURGERY 4. MICHEL (obstructive sleep apnea) - ICD9: [...] 12+ YR Jalyn Smith documented in this encounterMary [facility]an Hospital10-12-2022 Miscellaneous Notes* Telephone Encounter - IRMA Wharton - 03/19/2022 12:41 PM EDT Sw mailed [facility] Older Adult Resource Guide to patient. * Telephone Encounter - IRMA Wharton - 03/17/2022 12:40 PM EDT Vin spoke with patient in regards to transportation services to medical appts. Patient notes that she typically with have daughter or cousins that will help take her to medical appts. Sw notes that she has [facility] Older Adult Resource Guide with transportation information ie. [place]. Patient notes that she would like Vin to mail guide to her home for references. Vin confirmed patient address and will mail guide to home. * Telephone Encounter - IRMA Wharton - 03/12/2022 9:50 AM EDT Sw left message for patient to return Vin call to discuss transportation resources to medical appts. documented in this encounterMary [facility]an Hospital10-10-2022 History of Present illness Narrative* Genny Patterson [...] Sent to Practice: Navigation Signature: Genny Patterson [facility] Navigator March 17, 2022 12:15 PM Electronically signed by Genny Patterson [facility] Navigator at 03/17/2022 12:16 PM EDT documented in this encounterMary [facility]an Hospital09-09-2022 Miscellaneous Notes* Telephone Encounter - Violeta Greene - 02/14/2022 3:02 PM EDT Patient called and was transferred to [facility] to schedule with Dr. Gabriel Glasgow. documented in this encounterMary [facility]an Hospital09-08-2022 Miscellaneous Notes* Telephone Encounter - Massiel Gabriel LPN - 02/13/2022 9:13 AM EDT APPROVED through 06/07/2022. Pt picked up rx 02/06/22. Deirdre Gabriel LPN * Telephone Encounter - Massiel Gabriel LPN - 02/05/2022 10:02 AM EDT Prior Authorization has been completed online at [employer] for Metoprolol, will await response. [place]WRENCE- [id number] Please keep encounter open until final decision has been received and documented from insurance company. Deirdre Gabriel LPN documented in this encounterMary [facility] Hospital08-26-2022 Miscellaneous Notes* Telephone Encounter - Kristina Holloway [...] advise. Kristina Holloway LPN documented in this encounterMary [facility]an Hospital07-15-2022 Miscellaneous Notes* Telephone Encounter - Aj Hermosillo LPN - 12/20/2021 2:43 PM EDT Patient phones requesting refills as follows: Pending Prescriptions Disp Refills MELOXICAM 15 MG TABLET 90 tablet 3 Sig: Take 1 tablet by mouth once daily. With food. SVITLANA: No JERRELL 09/18/21 NOV no upcoming appt Please review and advise. Aj Hermosillo LPN documented in this encounterMary [facility]an Hospital06-27-2022 Miscellaneous Notes* Telephone Encounter - Tracy Peter [...] Tracy Peter RN * Telephone Encounter - ANTHONY Shukla - 12/02/2021 8:23 AM EDT Oxybutynin [...] No answer, left message to return call. MC sent to patient. [facility] this [facility] Miscellaneous Notes* Telephone Encounter - hSaye Robles LPN - 10/28/2021 4:21 PM EDT Last office visit 09/18/2021 documented [facility] Miscellaneous Notes* Telephone Encounter - Shaye Robles LPN - 10/28/2021 4:20 PM EDT Last office visit 09/18/2021. documented [facility] Miscellaneous Notes* Telephone Encounter - Kalpana Sharif [...] patient. Kalpana Sharif LPN documented [facility] this [facility] History of Present illness Narrative* Darlene Urbano RN - 02/14/2022 2:53 PM EDT InSight CDM Enrollment Provider Action/FYI: 1st attempt to enroll in inSight with [facility] introduction [phone] Last Jalyn Smith MD visit 09/18/21 for wound check - no future appointment scheduled Patient referred by: [facility] [place] Contact made with patient: No - Unable to leave message: (Keep encounter open and attempt 2nd outreach in two business days from today). END OUTREACH documented in this encounterMary [facility] Hospital05-01-2022 History of Present illness Narrative* Darlene Urbano RN - 02/17/2022 8:44 AM EDT InSight CDM Enrollment Provider Action/FYI: 2nd attempt to enroll in inSight with [facility] introduction [phone] Last Jalyn Smith MD visit 09/18/21 for wound check - no future appointment scheduled Patient referred by: [facility] [place] Contact made with patient: No - 2nd attempt to reach patient, left another message: Hi my name is Darlene Urbano RN and I am calling from the [facility] on behalf of your PCP, Jalyn Smith [...] reach the patient after two attempted outreaches. Evaporator to retry patient in one week. END OUTREACH documented in this encounterMary [facility] Hospital05-01-2022 History of Present illness Narrative* Darlene Urbano RN - 02/19/2022 1:56 PM EDT Images from the original note were not included. InSight CDM Enrollment Provider Action/FYI: 3rd attempt to enroll in inSight with [facility] introduction [phone] Last Jalyn Smith MD visit 09/18/21 for wound check - no future appointment scheduled - declined offer for scheduling assistance. Has appointment with ORTH provider this Thursday (outside of clinic) Knee pain - walks with walker Patient referred by: [facility] [place] Contact made with patient: Yes - Patient identified by name and . Discussed care with patient Poonam this is Darlene Urbano RN and I am calling from Jalyn Smith MD office at the [facility]. I am a RN Evaporator with our inSight Chronic Disease Management program. [...] few questions once a week through your [employer] account. It will automaticallyshow up for you [...] goal align with programs offered at the [facility]? No Patient accepts pediatric acute care unit nurse Thank you for your time today. I am excited to work together in managing your health! You will receive information on next steps through your [employer] account, and I will check back within a few weeks to ensure you have all that you need to use the program successfully. (Place name in care team and assign [employer] Visual Stylist questionnaire) Most people know what to do to become healthier, yet struggle to put it into action on their own.Itcan be hard to maintain a healthy lifestyle, especially when life is so stressful. Can we connect you with a [facility] Health Wildlife Control Operator to find a program that could help you meet your goals? No Closing: Patient accepts pediatric acute care unit nurse Thank you for your time today. I am excited to work together in managing your health! You will receive information on next steps through your [employer] account, and I will check back within a few weeks to ensure you have all that you need to use the program successfully. (Place name in care team and assign E2E Networkshart Visual Stylist questionnaire) documented in this encounterMary [facility]05-01-2022 History of Present illness Narrative* Darlene Urbano [...] Correia. This is Darlene Urbano RN your Evaporator from the [facility]. I am calling to check in with you concerning the MyChart questionnaire you have been receiving from me.I will call you again tomorrow and am looking forward to speaking with you. (Evaporator enters next day in "next patient outreach") documented in this encounterMary [facility] History of Present illness Narrative* Darlene Urbano RN - 03/11/2022 8:23 AM EDT PRIMARY CARE COORDINATION QUICK NOTE Provider Action/FYI SW REFERRAL for transportation to medical appointments Reminded patient about [facility] [phone] F/u on patient MyChart message from 03/10/22 [...] name and date . documented in this encounterMary [facility]04-18-[facility]22 Miscellaneous Notes* Telephone Encounter - Judy Bagley - 09/23/2021 12:04 PM EDT Patient electronically requesting refills as follows: Pending Prescriptions Disp Refills BUDESONIDE 0.5 MG/2 ML SUSPENSION FOR NEBULIZATION 360 mL 3 Sig: Use 2 mL via nebulizer twice daily. SVITLANA: No Please review and advise. Judy Bagley documented in this encounterMary [facility] Hospital04-14-2022 Miscellaneous Notes* Telephone Encounter - Jojo Traylor Ma - 09/19/2021 11:11 AM EDT Pending Prescriptions Disp Refills OXYBUTYNIN CHLORIDE ER 5 MG TABLET,EXTENDED RELEASE 24 HR 90 tablet 0 Sig: Take 1 tablet by mouth once daily. SVITLANA: No JERRELL 09/18/21 NOV 09/27/21 Jojo Traylor Ma documented in this encounterMary [facility] Hospital04-13-[facility]22 History of Present illness Narrative* Jalyn Smith [...] c/o follow-up on laceration 08/30/2021 presented to [facility] emergency department with laceration to left lower [...] (FLONASE) 50 mcg/actuation nasal spray Use 1 [place] in each nostril once daily. ipratropium-albuterol (DUONEB) [...] scheduled appt and prn. documented in this encounterMary [facility]04-08-2022 Instructions* Patient Instructions* Anthony Rodríguez PA-C - 09/13/2021 3:30 PM EDT Continue duoderm, recheck in 4-7 days as transportation is available. documented in this encounterMary [facility] Hospital04-08-[facility]22 History of Present illness Narrative* Anthony Rodríguez PA-C - 09/13/2021 3:25 PM EDT Here to replace duoderm. Wound is looking much better. Granulating nicely all the way across. Was edges with sterile water. Follow up in 4-7 days Tigre Rodríguez PA-C documented in this encounterMary [facility]04-06-[facility]22 History of Present illness Narrative* Rolf Ackerman MA - 09/11/2021 3:56 PM EDT POPULATION HEALTH NAVIGATION OUTREACH Action/FYI Spoke with patient and she wants to discuss with pcp on 09/13 whether or not she still needs to do CRS & BCS anymore. Patient states it's too hard for her to get back and forth for multiple appts. Patient had last DM eye at [facility] in [place] and will be due again 10/05/21. Patient will make her own appt. A1C- already ordered- reminded to complete Albumin and lipid-Order placed- please approve and add any additional labs- sent lab reminder Sent AD via my chart. Pended Orders ID Status Description Pended By When Reason [id number] Pended LIPID PANEL BASIC Rolf Ackerman MA 09/11/21 1555 [id number] Pended ALBUMIN/CREAT RATIO RND UR Rolf Ackerman [...] 11, 2021 3:56 PM documented in this encounterMary [facility] Hospital04-04-2022 Miscellaneous Notes* Telephone Encounter - Aj Hermosillo [...] Pt called today 09-06-21 to schedule an [facility] ER FU from 08-30-21. Pt has a laceration to her left lowerleg that occurred 08-29-21 in her home. She cut her leg on her walker. Pt states today the laceration is open and there is yellow drainage. She has been keeping it wrapped. No pain, just itching and burning. She reports still taking the ATB given to her from [facility] Cephalexin 500 mg capsules to take 1 every 6 hours. 40 capsules given and she has 20 left as of today 09-06-21. Pt states she was told this will heal on its own. ER FU Apt booked for 09-10-21. Judy Borrego LPN documented in this encounterMary [facility]an Hospital04-04-2022 Miscellaneous Notes* Telephone Encounter - Sharyn Quinn MA - 09/09/2021 1:20 PM EDT Patient requested a refill on the Gabapentin, however upon review of the chart there an active prescription that was sent 90 capsule 5 refills on 08/16/2021 to [facility]. My chart message was sent to the patient. Sharyn Quinn MA documented in this encounterMary [facility] Hospital03-12-[facility]22 History of Past illness Narrative* Problem Noted Date Resolved Date Obesity, Class III, BMI 40-49.9 (morbid obesity) 08/17/2021 10/01/2022 Skin ulcer 02/09/2019 08/16/2020 Obesity, Class II, BMI 35-39.9 12/02/2017 1 Pain, neck 03/31/2016 08/20/2016 Acute midline thoracic back pain 03/31/2016 08/20/2016 Backache, unspecified 03/14/2013 08/20/2016 COPD with chronic bronchitis 04/2021 HTN (hypertension) 08/20/2016 documented as of this encounter (statuses as of 10/01/2022) [facility] Narrative* Problem Noted Date Resolved Date Obesity, Class III, BMI 40-49.9 (morbid obesity) 08/17/2021 10/01/2022 Skin ulcer 02/09/2019 08/16/2020 Obesity, Class II, BMI 35-39.9 12/02/2017 1 Pain, neck 03/31/2016 08/20/2016 Acute midline thoracic back pain 03/31/2016 08/20/2016 Backache, unspecified 03/14/2013 08/20/2016 COPD with chronic bronchitis 04/2021 HTN (hypertension) 08/20/2016 documented as of this encounter (statuses as of 10/15/2022) [facility] Narrative* Problem Noted Date Resolved Date Obesity, Class III, BMI 40-49.9 (morbid obesity) 08/17/2021 10/01/2022 Skin ulcer 02/09/2019 08/16/2020 Obesity, Class II, BMI 35-39.9 12/02/2017 1 Pain, neck 03/31/2016 08/20/2016 Acute midline thoracic back pain 03/31/2016 08/20/2016 Backache, unspecified 03/14/2013 08/20/2016 COPD with chronic bronchitis 04/2021 HTN (hypertension) 08/20/2016 documented as of this encounter (statuses as of 10/15/2022) [facility] Narrative* Problem Noted Date Resolved Date Obesity, Class III, BMI 40-49.9 (morbid obesity) 08/17/2021 10/01/2022 Skin ulcer 02/09/2019 08/16/2020 Obesity, Class II, BMI 35-39.9 12/02/2017 1 Pain, neck 03/31/2016 08/20/2016 Acute midline thoracic back pain 03/31/2016 08/20/2016 Backache, unspecified 03/14/2013 08/20/2016 COPD with chronic bronchitis 04/2021 HTN (hypertension) 08/20/2016 documented as of this encounter (statuses as of 11/13/2022) [facility] Narrative* Problem Noted Date Resolved Date Obesity, Class III, BMI 40-49.9 (morbid obesity) 08/17/2021 10/01/2022 Skin ulcer 02/09/2019 08/16/2020 Obesity, Class II, BMI 35-39.9 12/02/2017 1 Pain, neck 03/31/2016 08/20/2016 Acute midline thoracic back pain 03/31/2016 08/20/2016 Backache, unspecified 03/14/2013 08/20/2016 COPD with chronic bronchitis 04/2021 HTN (hypertension) 08/20/2016 documented as of this encounter (statuses as of 12/05/2022) [address]12-2022 History of Past illness Narrative* Problem Noted Date Resolved Date Obesity, Class III, BMI 40-49.9 (morbid obesity) 08/17/2021 10/01/2022 Skin ulcer 02/09/2019 08/16/2020 Obesity, Class II, BMI 35-39.9 12/02/2017 1 Pain, neck 03/31/2016 08/20/2016 Acute midline thoracic back pain 03/31/2016 08/20/2016 Backache, unspecified 03/14/2013 08/20/2016 COPD with chronic bronchitis 04/2021 HTN (hypertension) 08/20/2016 documented as of this encounter (statuses as of 12/06/2022) [facility] Narrative* Problem Noted Date Resolved Date Obesity, Class III, BMI 40-49.9 (morbid obesity) 08/17/2021 10/01/2022 Skin ulcer 02/09/2019 08/16/2020 Obesity, Class II, BMI 35-39.9 12/02/2017 1 Pain, neck 03/31/2016 08/20/2016 Acute midline thoracic back pain 03/31/2016 08/20/2016 Backache, unspecified 03/14/2013 08/20/2016 COPD with chronic bronchitis 04/2021 HTN (hypertension) 08/20/2016 documented as of this encounter (statuses as of 12/11/2022) [facility] Narr[facility]* Problem Noted Date Resolved Date Obesity, Class III, BMI 40-49.9 (morbid obesity) 08/17/2021 10/01/2022 Skin ulcer 02/09/2019 08/16/2020 Obesity, Class II, BMI 35-39.9 12/02/2017 1 Pain, neck 03/31/2016 08/20/2016 Acute midline thoracic back pain 03/31/2016 08/20/2016 Backache, unspecified 03/14/2013 08/20/2016 COPD with chronic bronchitis 04/2021 HTN (hypertension) 08/20/2016 documented as of this encounter (statuses as of 12/12/2022) [facility] Narrative* Problem Noted [...] of this encounter (statuses as of 12/16/2022) [address]12-2022 History of Past illness Narrative* Problem [...] of this encounter (statuses as of 01/08/2023) [facility] Narrative* Problem Noted [...] of this encounter (statuses as of 01/08/2023) [facility] Narrative* Problem Noted [...] of this encounter (statuses as of 01/08/2023) [address]12-2022 History of Past illness Narrative* Problem [...] of this encounter (statuses as of 01/13/2023) [facility] N[facility]* Problem Noted [...] of this encounter (statuses as of 01/13/2023) [facility]* Problem Noted [...] of this encounter (statuses as of 01/14/2023) [facility]* Problem Noted [...] of this encounter (statuses as of 01/16/2023) [facility]* Problem Noted [...] of this encounter (statuses as of 01/20/2023) [facility]* Problem Noted [...] of this encounter (statuses as of 01/22/2023) [facility]* Problem Noted [...] of this encounter (statuses as of 01/22/2023) [facility]* Problem Noted [...] of this encounter (statuses as of 02/05/2023) [facility]* Problem Noted [...] of this encounter (statuses as of 02/11/2023) [facility]* Problem Noted [...] of this encounter (statuses as of 03/14/2023) [facility]* Problem Noted [...] of this encounter (statuses as of 03/27/2023) [facility]* Problem Noted [...] of this encounter (statuses as of 03/27/2023) [facility]* Problem Noted [...] of this encounter (statuses as of 03/30/2023) [facility] Problem Noted [...] of this encounter (statuses as of 04/12/2023) [facility] Problem Noted [...] of this encounter (statuses as of 04/12/2023) [facility] Problem Noted [...] of this encounter (statuses as of 04/29/2023) [facility] Problem Noted [...] of this encounter (statuses as of 05/05/2023) [facility] Problem Noted [...] of this encounter (statuses as of 05/19/2023) [facility] Problem Noted [...] of this encounter (statuses as of 07/16/2023) [facility] Problem Noted [...] of this encounter (statuses as of 07/20/2023) [facility] Problem Noted [...] of this encounter (statuses as of 07/24/2023) [facility] Problem Noted [...] of this encounter (statuses as of 08/05/2023) [facility] Problem Noted [...] of this encounter (statuses as of 08/17/2023) [facility] Problem Noted [...] of this encounter (statuses as of 08/24/2023) [facility] Problem Noted [...] of this encounter (statuses as of 08/25/2023) [facility] Problem Noted [...] of this encounter (statuses as of 08/26/2023) [facility] Problem Noted [...] of this encounter (statuses as of 08/28/2023) [address]22 History of Past illness Narrative* Problem [...] of this encounter (statuses as of 2023) [facility] of [facility]* Problem Noted [...] of this encounter (statuses as of 2023) [facility]* Problem Noted [...] of this encounter (statuses as of 09/08/2023) [facility] Problem Noted [...] of this encounter (statuses as of 09/09/2023) [facility] Problem Noted [...] of this encounter (statuses as of 09/11/2023) [facility] Problem Noted [...] of this encounter (statuses as of 09/11/2023) [facility] Problem Noted [...] of this encounter (statuses as of 09/13/2023) [facility] Problem Noted [...] of this encounter (statuses as of 09/14/2023) [facility] Problem Noted [...] of this encounter (statuses as of 09/16/2023) [facility] Problem Noted [...] of this encounter (statuses as of 09/22/2023) [facility] Problem Noted [...] of this encounter (statuses as of 09/22/2023) [facility] Problem Noted [...] of this encounter (statuses as of 09/23/2023) [facility] Problem Noted [...] of this encounter (statuses as of 09/24/2023) [facility] Problem Noted [...] of this encounter (statuses as of 09/25/2023) [facility] Miscellaneous Notes* Telephone Encounter - Francoise Grady RN - 08/15/2021 12:12 PM EST Rizwana calling from [facility] to report plan of care for patient and OT will visit patient 1 times a week for first week and 2 times a week for 3 weeks. OT will work with patient on safe oxygen line management and ROM of left arm related to arthritis. Rizwana said she doesn't need a call back if provider agrees. Francoise Grady RN documented in this encounterMary [facility]02-[facility]22 Miscellaneous Notes* Telephone Encounter - Tracy Peter [...] daughter if needing to advise further. PH: [phone]. Thank you. documented in this encounterMary [facility] History of Past illness Narrative* Problem Noted Date Resolved Date Skin ulcer 02/09/2019 08/16/2020 Obesity, Class II, BMI 35-39.9 12/02/2017 1 Pain, neck 03/31/2016 08/20/2016 Acute midline thoracic back pain 03/31/2016 08/20/2016 Backache, unspecified 03/14/2013 08/20/2016 COPD with chronic bronchitis 04/2021 HTN (hypertension) 08/20/2016 documented as of this encounter (statuses as of 09/09/2021) [facility]* Problem Noted Date Resolved Date Skin ulcer 02/09/2019 08/16/2020 Obesity, Class II, BMI 35-39.9 12/02/2017 1 Pain, neck 03/31/2016 08/20/2016 Acute midline thoracic back pain 03/31/2016 08/20/2016 Backache, unspecified 03/14/2013 08/20/2016 COPD with chronic bronchitis 04/2021 HTN (hypertension) 08/20/2016 documented as of this encounter (statuses as of 09/11/2021) [facility]* Problem Noted Date Resolved Date Skin ulcer 02/09/2019 08/16/2020 Obesity, Class II, BMI 35-39.9 12/02/2017 1 Pain, neck 03/31/2016 08/20/2016 Acute midline thoracic back pain 03/31/2016 08/20/2016 Backache, unspecified 03/14/2013 08/20/2016 COPD with chronic bronchitis 04/2021 HTN (hypertension) 08/20/2016 documented as of this encounter (statuses as of 09/13/2021) [facility]* Problem Noted Date Resolved Date Skin ulcer 02/09/2019 08/16/2020 Obesity, Class II, BMI 35-39.9 12/02/2017 1 Pain, neck 03/31/2016 08/20/2016 Acute midline thoracic back pain 03/31/2016 08/20/2016 Backache, unspecified 03/14/2013 08/20/2016 COPD with chronic bronchitis 04/2021 HTN (hypertension) 08/20/2016 documented as of this encounter (statuses as of 09/13/2021) [facility]* Problem Noted Date Resolved Date Skin ulcer 02/09/2019 08/16/2020 Obesity, Class II, BMI 35-39.9 12/02/2017 1 Pain, neck 03/31/2016 08/20/2016 Acute midline thoracic back pain 03/31/2016 08/20/2016 Backache, unspecified 03/14/2013 08/20/2016 COPD with chronic bronchitis 04/2021 HTN (hypertension) 08/20/2016 documented as of this encounter (statuses as of 09/18/2021) [facility] Problem Noted Date Resolved Date Skin ulcer 02/09/2019 08/16/2020 Obesity, Class II, BMI 35-39.9 12/02/2017 1 Pain, neck 03/31/2016 08/20/2016 Acute midline thoracic back pain 03/31/2016 08/20/2016 Backache, unspecified 03/14/2013 08/20/2016 COPD with chronic bronchitis 04/2021 HTN (hypertension) 08/20/2016 documented as of this encounter (statuses as of 09/19/2021) [facility] Problem Noted Date Resolved Date Skin ulcer 02/09/2019 08/16/2020 Obesity, Class II, BMI 35-39.9 12/02/2017 1 Pain, neck 03/31/2016 08/20/2016 Acute midline thoracic back pain 03/31/2016 08/20/2016 Backache, unspecified 03/14/2013 08/20/2016 COPD with chronic bronchitis 04/2021 HTN (hypertension) 08/20/2016 documented as of this encounter (statuses as of 09/23/2021) [facility]* Problem Noted Date Resolved Date Skin ulcer 02/09/2019 08/16/2020 Obesity, Class II, BMI 35-39.9 12/02/2017 1 Pain, neck 03/31/2016 08/20/2016 Acute midline thoracic back pain 03/31/2016 08/20/2016 Backache, unspecified 03/14/2013 08/20/2016 COPD with chronic bronchitis 04/2021 HTN (hypertension) 08/20/2016 documented as of this encounter (statuses as of 10/24/2021) [facility] Problem Noted Date Resolved Date Skin ulcer 02/09/2019 08/16/2020 Obesity, Class II, BMI 35-39.9 12/02/2017 1 Pain, neck 03/31/2016 08/20/2016 Acute midline thoracic back pain 03/31/2016 08/20/2016 Backache, unspecified 03/14/2013 08/20/2016 COPD with chronic bronchitis 04/2021 HTN (hypertension) 08/20/2016 documented as of this encounter (statuses as of 10/24/2021) [facility] Problem Noted Date Resolved Date Skin ulcer 02/09/2019 08/16/2020 Obesity, Class II, BMI 35-39.9 12/02/2017 1 Pain, neck 03/31/2016 08/20/2016 Acute midline thoracic back pain 03/31/2016 08/20/2016 Backache, unspecified 03/14/2013 08/20/2016 COPD with chronic bronchitis 04/2021 HTN (hypertension) 08/20/2016 documented as of this encounter (statuses as of 10/28/2021) [facility] Problem Noted Date Resolved Date Skin ulcer 02/09/2019 08/16/2020 Obesity, Class II, BMI 35-39.9 12/02/2017 1 Pain, neck 03/31/2016 08/20/2016 Acute midline thoracic back pain 03/31/2016 08/20/2016 Backache, unspecified 03/14/2013 08/20/2016 COPD with chronic bronchitis 04/2021 HTN (hypertension) 08/20/2016 documented as of this encounter (statuses as of 10/28/2021) [facility] Problem Noted Date Resolved Date Skin ulcer 02/09/2019 08/16/2020 Obesity, Class II, BMI 35-39.9 12/02/2017 1 Pain, neck 03/31/2016 08/20/2016 Acute midline thoracic back pain 03/31/2016 08/20/2016 Backache, unspecified 03/14/2013 08/20/2016 COPD with chronic bronchitis 04/2021 HTN (hypertension) 08/20/2016 documented as of this encounter (statuses as of 12/02/2021) [facility] Problem Noted Date Resolved Date Skin ulcer 02/09/2019 08/16/2020 Obesity, Class II, BMI 35-39.9 12/02/2017 1 Pain, neck 03/31/2016 08/20/2016 Acute midline thoracic back pain 03/31/2016 08/20/2016 Backache, unspecified 03/14/2013 08/20/2016 COPD with chronic bronchitis 04/2021 HTN (hypertension) 08/20/2016 documented as of this encounter (statuses as of 12/18/2021) [facility] Problem Noted Date Resolved Date Skin ulcer 02/09/2019 08/16/2020 Obesity, Class II, BMI 35-39.9 12/02/2017 1 Pain, neck 03/31/2016 08/20/2016 Acute midline thoracic back pain 03/31/2016 08/20/2016 Backache, unspecified 03/14/2013 08/20/2016 COPD with chronic bronchitis 04/2021 HTN (hypertension) 08/20/2016 documented as of this encounter (statuses as of 12/20/2021) [facility] Problem Noted Date Resolved Date Skin ulcer 02/09/2019 08/16/2020 Obesity, Class II, BMI 35-39.9 12/02/2017 1 Pain, neck 03/31/2016 08/20/2016 Acute midline thoracic back pain 03/31/2016 08/20/2016 Backache, unspecified 03/14/2013 08/20/2016 COPD with chronic bronchitis 04/2021 HTN (hypertension) 08/20/2016 documented as of this encounter (statuses as of 12/23/2021) [facility] Problem Noted Date Resolved Date Skin ulcer 02/09/2019 08/16/2020 Obesity, Class II, BMI 35-39.9 12/02/2017 1 Pain, neck 03/31/2016 08/20/2016 Acute midline thoracic back pain 03/31/2016 08/20/2016 Backache, unspecified 03/14/2013 08/20/2016 COPD with chronic bronchitis 04/2021 HTN (hypertension) 08/20/2016 documented as of this encounter (statuses as of 01/23/2022) [facility] Problem Noted Date Resolved Date Skin ulcer 02/09/2019 08/16/2020 Obesity, Class II, BMI 35-39.9 12/02/2017 1 Pain, neck 03/31/2016 08/20/2016 Acute midline thoracic back pain 03/31/2016 08/20/2016 Backache, unspecified 03/14/2013 08/20/2016 COPD with chronic bronchitis 04/2021 HTN (hypertension) 08/20/2016 documented as of this encounter (statuses as of 01/31/2022) [facility] Problem Noted Date Resolved Date Skin ulcer 02/09/2019 08/16/2020 Obesity, Class II, BMI 35-39.9 12/02/2017 1 Pain, neck 03/31/2016 08/20/2016 Acute midline thoracic back pain 03/31/2016 08/20/2016 Backache, unspecified 03/14/2013 08/20/2016 COPD with chronic bronchitis 04/2021 HTN (hypertension) 08/20/2016 documented as of this encounter (statuses as of 02/09/2022) [facility] Problem Noted Date Resolved Date Skin ulcer 02/09/2019 08/16/2020 Obesity, Class II, BMI 35-39.9 12/02/2017 1 Pain, neck 03/31/2016 08/20/2016 Acute midline thoracic back pain 03/31/2016 08/20/2016 Backache, unspecified 03/14/2013 08/20/2016 COPD with chronic bronchitis 04/2021 HTN (hypertension) 08/20/2016 documented as of this encounter (statuses as of 02/13/2022) [facility] Problem Noted Date Resolved Date Skin ulcer 02/09/2019 08/16/2020 Obesity, Class II, BMI 35-39.9 12/02/2017 1 Pain, neck 03/31/2016 08/20/2016 Acute midline thoracic back pain 03/31/2016 08/20/2016 Backache, unspecified 03/14/2013 08/20/2016 COPD with chronic bronchitis 04/2021 HTN (hypertension) 08/20/2016 documented as of this encounter (statuses as of 02/14/2022) [facility]* Problem Noted Date Resolved Date Skin ulcer 02/09/2019 08/16/2020 Obesity, Class II, BMI 35-39.9 12/02/2017 1 Pain, neck 03/31/2016 08/20/2016 Acute midline thoracic back pain 03/31/2016 08/20/2016 Backache, unspecified 03/14/2013 08/20/2016 COPD with chronic bronchitis 04/2021 HTN (hypertension) 08/20/2016 documented as of this encounter (statuses as of 02/14/2022) [facility]* Problem Noted Date Resolved Date Skin ulcer 02/09/2019 08/16/2020 Obesity, Class II, BMI 35-39.9 12/02/2017 1 Pain, neck 03/31/2016 08/20/2016 Acute midline thoracic back pain 03/31/2016 08/20/2016 Backache, unspecified 03/14/2013 08/20/2016 COPD with chronic bronchitis 04/2021 HTN (hypertension) 08/20/2016 documented as of this encounter (statuses as of 02/17/2022) [facility] History of Past illness Narrative* Problem Noted Date Resolved Date Skin ulcer 02/09/2019 08/16/2020 Obesity, Class II, BMI 35-39.9 12/02/2017 1 Pain, neck 03/31/2016 08/20/2016 Acute midline thoracic back pain 03/31/2016 08/20/2016 Backache, unspecified 03/14/2013 08/20/2016 COPD with chronic bronchitis 04/2021 HTN (hypertension) 08/20/2016 documented as of this encounter (statuses as of 02/19/2022) [facility] History of Past illness Narrative* Problem Noted Date Resolved Date Skin ulcer 02/09/2019 08/16/2020 Obesity, Class II, BMI 35-39.9 12/02/2017 1 Pain, neck 03/31/2016 08/20/2016 Acute midline thoracic back pain 03/31/2016 08/20/2016 Backache, unspecified 03/14/2013 08/20/2016 COPD with chronic bronchitis 04/2021 HTN (hypertension) 08/20/2016 documented as of this encounter (statuses as of 02/26/2022) [facility] History of Past illness Narrative* Problem Noted Date Resolved Date Skin ulcer 02/09/2019 08/16/2020 Obesity, Class II, BMI 35-39.9 12/02/2017 1 Pain, neck 03/31/2016 08/20/2016 Acute midline thoracic back pain 03/31/2016 08/20/2016 Backache, unspecified 03/14/2013 08/20/2016 COPD with chronic bronchitis 04/2021 HTN (hypertension) 08/20/2016 documented as of this encounter (statuses as of 03/06/2022) [facility] History of Past illness Narrative* Problem Noted Date Resolved Date Skin ulcer 02/09/2019 08/16/2020 Obesity, Class II, BMI 35-39.9 12/02/2017 1 Pain, neck 03/31/2016 08/20/2016 Acute midline thoracic back pain 03/31/2016 08/20/2016 Backache, unspecified 03/14/2013 08/20/2016 COPD with chronic bronchitis 04/2021 HTN (hypertension) 08/20/2016 documented as of this encounter (statuses as of 03/10/2022) [facility] History of Past illness Narrative* Problem Noted Date Resolved Date Skin ulcer 02/09/2019 08/16/2020 Obesity, Class II, BMI 35-39.9 12/02/2017 1 Pain, neck 03/31/2016 08/20/2016 Acute midline thoracic back pain 03/31/2016 08/20/2016 Backache, unspecified 03/14/2013 08/20/2016 COPD with chronic bronchitis 04/2021 HTN (hypertension) 08/20/2016 documented as of this encounter (statuses as of 03/11/2022) [facility] History of Past illness Narrative* Problem Noted Date Resolved Date Skin ulcer 02/09/2019 08/16/2020 Obesity, Class II, BMI 35-39.9 12/02/2017 1 Pain, neck 03/31/2016 08/20/2016 Acute midline thoracic back pain 03/31/2016 08/20/2016 Backache, unspecified 03/14/2013 08/20/2016 COPD with chronic bronchitis 04/2021 HTN (hypertension) 08/20/2016 documented as of this encounter (statuses as of 03/17/2022) [facility] History of Past illness Narrative* Problem Noted Date Resolved Date Skin ulcer 02/09/2019 08/16/2020 Obesity, Class II, BMI 35-39.9 12/02/2017 1 Pain, neck 03/31/2016 08/20/2016 Acute midline thoracic back pain 03/31/2016 08/20/2016 Backache, unspecified 03/14/2013 08/20/2016 COPD with chronic bronchitis 04/2021 HTN (hypertension) 08/20/2016 documented as of this encounter (statuses as of 03/19/2022) [facility] of Past illness Narrative* Problem Noted Date Resolved Date Skin ulcer 02/09/2019 08/16/2020 Obesity, Class II, BMI 35-39.9 12/02/2017 1 Pain, neck 03/31/2016 08/20/2016 Acute midline thoracic back pain 03/31/2016 08/20/2016 Backache, unspecified 03/14/2013 08/20/2016 COPD with chronic bronchitis 04/2021 HTN (hypertension) 08/20/2016 documented as of this encounter (statuses as of 03/20/2022) [facility] History of Past illness Narrative* Problem Noted Date Resolved Date Skin ulcer 02/09/2019 08/16/2020 Obesity, Class II, BMI 35-39.9 12/02/2017 1 Pain, neck 03/31/2016 08/20/2016 Acute midline thoracic back pain 03/31/2016 08/20/2016 Backache, unspecified 03/14/2013 08/20/2016 COPD with chronic bronchitis 04/2021 HTN (hypertension) 08/20/2016 documented as of this encounter (statuses as of 03/20/2022) [facility] History of Past illness Narrative* Problem Noted Date Resolved Date Skin ulcer 02/09/2019 08/16/2020 Obesity, Class II, BMI 35-39.9 12/02/2017 1 Pain, neck 03/31/2016 08/20/2016 Acute midline thoracic back pain 03/31/2016 08/20/2016 Backache, unspecified 03/14/2013 08/20/2016 COPD with chronic bronchitis 04/2021 HTN (hypertension) 08/20/2016 documented as of this encounter (statuses as of 03/25/2022) [facility] History of Past illness Narrative* Problem Noted Date Resolved Date Skin ulcer 02/09/2019 08/16/2020 Obesity, Class II, BMI 35-39.9 12/02/2017 1 Pain, neck 03/31/2016 08/20/2016 Acute midline thoracic back pain 03/31/2016 08/20/2016 Backache, unspecified 03/14/2013 08/20/2016 COPD with chronic bronchitis 04/2021 HTN (hypertension) 08/20/2016 documented as of this encounter (statuses as of 03/31/2022) [facility] History of Past illness Narrative* Problem Noted Date Resolved Date Skin ulcer 02/09/2019 08/16/2020 Obesity, Class II, BMI 35-39.9 12/02/2017 1 Pain, neck 03/31/2016 08/20/2016 Acute midline thoracic back pain 03/31/2016 08/20/2016 Backache, unspecified 03/14/2013 08/20/2016 COPD with chronic bronchitis 04/2021 HTN (hypertension) 08/20/2016 documented as of this encounter (statuses as of 04/08/2022) [facility] History of Past illness Narrative* Problem Noted Date Resolved Date Skin ulcer 02/09/2019 08/16/2020 Obesity, Class II, BMI 35-39.9 12/02/2017 1 Pain, neck 03/31/2016 08/20/2016 Acute midline thoracic back pain 03/31/2016 08/20/2016 Backache, unspecified 03/14/2013 08/20/2016 COPD with chronic bronchitis 04/2021 HTN (hypertension) 08/20/2016 documented as of this encounter (statuses as of 04/18/2022) [facility] History of Past illness Narrative* Problem Noted Date Resolved Date Skin ulcer 02/09/2019 08/16/2020 Obesity, Class II, BMI 35-39.9 12/02/2017 1 Pain, neck 03/31/2016 08/20/2016 Acute midline thoracic back pain 03/31/2016 08/20/2016 Backache, unspecified 03/14/2013 08/20/2016 COPD with chronic bronchitis 04/2021 HTN (hypertension) 08/20/2016 documented as of this encounter (statuses as of 05/08/2022) [facility] History of Past illness Narrative* Problem Noted Date Resolved Date Skin ulcer 02/09/2019 08/16/2020 Obesity, Class II, BMI 35-39.9 12/02/2017 1 Pain, neck 03/31/2016 08/20/2016 Acute midline thoracic back pain 03/31/2016 08/20/2016 Backache, unspecified 03/14/2013 08/20/2016 COPD with chronic bronchitis 04/2021 HTN (hypertension) 08/20/2016 documented as of this encounter (statuses as of 05/12/2022) [facility] History of Past illness Narrative* Problem Noted Date Resolved Date Skin ulcer 02/09/2019 08/16/2020 Obesity, Class II, BMI 35-39.9 12/02/2017 1 Pain, neck 03/31/2016 08/20/2016 Acute midline thoracic back pain 03/31/2016 08/20/2016 Backache, unspecified 03/14/2013 08/20/2016 COPD with chronic bronchitis 04/2021 HTN (hypertension) 08/20/2016 documented as of this encounter (statuses as of 06/11/2022) [facility] History of Past illness Narrative* Problem Noted Date Resolved Date Skin ulcer 02/09/2019 08/16/2020 Obesity, Class II, BMI 35-39.9 12/02/2017 1 Pain, neck 03/31/2016 08/20/2016 Acute midline thoracic back pain 03/31/2016 08/20/2016 Backache, unspecified 03/14/2013 08/20/2016 COPD with chronic bronchitis 04/2021 HTN (hypertension) 08/20/2016 documented as of this encounter (statuses as of 06/12/2022) [facility] History of Past illness Narrative* Problem Noted Date Resolved Date Skin ulcer 02/09/2019 08/16/2020 Obesity, Class II, BMI 35-39.9 12/02/2017 1 Pain, neck 03/31/2016 08/20/2016 Acute midline thoracic back pain 03/31/2016 08/20/2016 Backache, unspecified 03/14/2013 08/20/2016 COPD with chronic bronchitis 04/2021 HTN (hypertension) 08/20/2016 documented as of this encounter (statuses as of 06/14/2022) [facility] History of Past illness Narrative* Problem Noted Date Resolved Date Skin ulcer 02/09/2019 08/16/2020 Obesity, Class II, BMI 35-39.9 12/02/2017 1 Pain, neck 03/31/2016 08/20/2016 Acute midline thoracic back pain 03/31/2016 08/20/2016 Backache, unspecified 03/14/2013 08/20/2016 COPD with chronic bronchitis 04/2021 HTN (hypertension) 08/20/2016 documented as of this encounter (statuses as of 06/20/2022) [facility] History of Past illness Narrative* Problem Noted Date Resolved Date Skin ulcer 02/09/2019 08/16/2020 Obesity, Class II, BMI 35-39.9 12/02/2017 1 Pain, neck 03/31/2016 08/20/2016 Acute midline thoracic back pain 03/31/2016 08/20/2016 Backache, unspecified 03/14/2013 08/20/2016 COPD with chronic bronchitis 04/2021 HTN (hypertension) 08/20/2016 documented as of this encounter (statuses as of 06/25/2022) [facility] History of Past illness Narrative* Problem Noted Date Resolved Date Skin ulcer 02/09/2019 08/16/2020 Obesity, Class II, BMI 35-39.9 12/02/2017 1 Pain, neck 03/31/2016 08/20/2016 Acute midline thoracic back pain 03/31/2016 08/20/2016 Backache, unspecified 03/14/2013 08/20/2016 COPD with chronic bronchitis 04/2021 HTN (hypertension) 08/20/2016 documented as of this encounter (statuses as of 06/26/2022) [facility] History of Past illness Narrative* Problem Noted Date Resolved Date Skin ulcer 02/09/2019 08/16/2020 Obesity, Class II, BMI 35-39.9 12/02/2017 1 Pain, neck 03/31/2016 08/20/2016 Acute midline thoracic back pain 03/31/2016 08/20/2016 Backache, unspecified 03/14/2013 08/20/2016 COPD with chronic bronchitis 04/2021 HTN (hypertension) 08/20/2016 documented as of this encounter (statuses as of 07/01/2022) [facility] History of Past illness Narrative* Problem Noted Date Resolved Date Skin ulcer 02/09/2019 08/16/2020 Obesity, Class II, BMI 35-39.9 12/02/2017 1 Pain, neck 03/31/2016 08/20/2016 Acute midline thoracic back pain 03/31/2016 08/20/2016 Backache, unspecified 03/14/2013 08/20/2016 COPD with chronic bronchitis 04/2021 HTN (hypertension) 08/20/2016 documented as of this encounter (statuses as of 07/01/2022) [facility] of Past illness Narrative* Problem Noted Date Resolved Date Skin ulcer 02/09/2019 08/16/2020 Obesity, Class II, BMI 35-39.9 12/02/2017 1 Pain, neck 03/31/2016 08/20/2016 Acute midline thoracic back pain 03/31/2016 08/20/2016 Backache, unspecified 03/14/2013 08/20/2016 COPD with chronic bronchitis 04/2021 HTN (hypertension) 08/20/2016 documented as of this encounter (statuses as of 07/03/2022) [facility] of Past illness Narrative* Problem Noted Date Resolved Date Skin ulcer 02/09/2019 08/16/2020 Obesity, Class II, BMI 35-39.9 12/02/2017 1 Pain, neck 03/31/2016 08/20/2016 Acute midline thoracic back pain 03/31/2016 08/20/2016 Backache, unspecified 03/14/2013 08/20/2016 COPD with chronic bronchitis 04/2021 HTN (hypertension) 08/20/2016 documented as of this encounter (statuses as of 07/09/2022) [facility] of Past illness Narrative* Problem Noted Date Resolved Date Skin ulcer 02/09/2019 08/16/2020 Obesity, Class II, BMI 35-39.9 12/02/2017 1 Pain, neck 03/31/2016 08/20/2016 Acute midline thoracic back pain 03/31/2016 08/20/2016 Backache, unspecified 03/14/2013 08/20/2016 COPD with chronic bronchitis 04/2021 HTN (hypertension) 08/20/2016 documented as of this encounter (statuses as of 07/16/2022) [facility] History of Past illness Narrative* Problem Noted Date Resolved Date Skin ulcer 02/09/2019 08/16/2020 Obesity, Class II, BMI 35-39.9 12/02/2017 1 Pain, neck 03/31/2016 08/20/2016 Acute midline thoracic back pain 03/31/2016 08/20/2016 Backache, unspecified 03/14/2013 08/20/2016 COPD with chronic bronchitis 04/2021 HTN (hypertension) 08/20/2016 documented as of this encounter (statuses as of 07/17/2022) [facility] History of Past illness Narrative* Problem Noted Date Resolved Date Skin ulcer 02/09/2019 08/16/2020 Obesity, Class II, BMI 35-39.9 12/02/2017 1 Pain, neck 03/31/2016 08/20/2016 Acute midline thoracic back pain 03/31/2016 08/20/2016 Backache, unspecified 03/14/2013 08/20/2016 COPD with chronic bronchitis 04/2021 HTN (hypertension) 08/20/2016 documented as of this encounter (statuses as of 07/22/2022) [facility] History of Past illness Narrative* Problem Noted Date Resolved Date Skin ulcer 02/09/2019 08/16/2020 Obesity, Class II, BMI 35-39.9 12/02/2017 1 Pain, neck 03/31/2016 08/20/2016 Acute midline thoracic back pain 03/31/2016 08/20/2016 Backache, unspecified 03/14/2013 08/20/2016 COPD with chronic bronchitis 04/2021 HTN (hypertension) 08/20/2016 documented as of this encounter (statuses as of 08/07/2022) [facility] History of Past illness Narrative* Problem Noted Date Resolved Date Skin ulcer 02/09/2019 08/16/2020 Obesity, Class II, BMI 35-39.9 12/02/2017 1 Pain, neck 03/31/2016 08/20/2016 Acute midline thoracic back pain 03/31/2016 08/20/2016 Backache, unspecified 03/14/2013 08/20/2016 COPD with chronic bronchitis 04/2021 HTN (hypertension) 08/20/2016 documented as of this encounter (statuses as of 08/11/2022) [facility] History of Past illness Narrative* Problem Noted Date Resolved Date Skin ulcer 02/09/2019 08/16/2020 Obesity, Class II, BMI 35-39.9 12/02/2017 1 Pain, neck 03/31/2016 08/20/2016 Acute midline thoracic back pain 03/31/2016 08/20/2016 Backache, unspecified 03/14/2013 08/20/2016 COPD with chronic bronchitis 04/2021 HTN (hypertension) 08/20/2016 documented as of this encounter (statuses as of 09/01/2022) [facility] of Past illness Narrative* Problem Noted Date Resolved Date Skin ulcer 02/09/2019 08/16/2020 Obesity, Class II, BMI 35-39.9 12/02/2017 1 Pain, neck 03/31/2016 08/20/2016 Acute midline thoracic back pain 03/31/2016 08/20/2016 Backache, unspecified 03/14/2013 08/20/2016 COPD with chronic bronchitis 04/2021 HTN (hypertension) 08/20/2016 documented as of this encounter (statuses as of 09/11/2022) [facility] of Past illness Narrative* Problem Noted Date Resolved Date Skin ulcer 02/09/2019 08/16/2020 Obesity, Class II, BMI 35-39.9 12/02/2017 1 Pain, neck 03/31/2016 08/20/2016 Acute midline thoracic back pain 03/31/2016 08/20/2016 Backache, unspecified 03/14/2013 08/20/2016 COPD with chronic bronchitis 04/2021 HTN (hypertension) 08/20/2016 documented as of this encounter (statuses as of 09/20/2022) [facility] Past [facility] Narrative* Problem Noted Date Resolved Date Skin ulcer 02/09/2019 08/16/2020 Obesity, Class II, BMI 35-39.9 12/02/2017 1 Pain, neck 03/31/2016 08/20/2016 Acute midline thoracic back pain 03/31/2016 08/20/2016 Backache, unspecified 03/14/2013 08/20/2016 COPD with chronic bronchitis 04/2021 HTN (hypertension) 08/20/2016 documented as of this encounter (statuses as of 09/29/2022) [facility] Vibha Ramos [facility] December 15, 2022 2:11pm Note Date/Time December 15, 2022 2:11 pm [facility] Medical Records Department [address] [place], [place] [address] [address] Counseling Note - Pharmacy 12/15/22 1410 MR#: [id number] Acct: [id number] Name: KANDI CORREIA Rep #:[id number] : 1945 77 From: Vibha Ramos PCP: Dr. Jalyn Smith MD Status:ADM I NO Y Location: [place] [address] [place] Med Reconciliation Pharmacy Service has performed discharge [...] Signature (if applicable): Date CC: ~ Signed [facility] Work Phone: Discharge summary Author Chris Deshpande [facility] December 15, 2022 3:23pm Note Date/Time December 15, 2022 3:24 pm [facility] Medical Records Department [address] [place] [id number] Transfer to [facility] MR#: [id number] Acct: [id number] Name: KANDI CORREIA Rep #:[id number] : 1945 77 From: Chris Marie PCP: Dr. Jalyn Smith MD Status:ADM I NO Certification of patient admission REQUIRED AT TIME OF ADMISSION. I CERTIFY THAT POST-HOSPITAL ECF SERVICES ARE REQUIRED TO BE GIVEN ON AN IN-PATIENT BASIS BECAUSE OF THE ABOVE NAMED PATIENT'S NEED FOR USP CARE ON A CONTINUING BASIS FOR THE CONDITION(S) FOR WHICH HE/SHE WAS RECEIVINGIN-PATIENT HOSPITAL SERVICES PRIOR TO HIS/HER TRANSFER TO THE [facility]. 12/15/22 1523<Electronically signed by Chris Deshpande MD> 12/15/22 1523 <Electronically signed by Chris Deshpande MD> Cosigner Signature (if applicable): CC: Dr. Burke Patterson MD; Dr. Angle Latham MD; Dr. Jalyn Smith MD ~ [facility] Work Phone: Evaluation note* Diagnosis Type 2 diabetes mellitus without complication, without long-term current use of insulin (HCC)- [facility] [place] [facility] Diagnosis Puncture wound of left calf- Primary documented in this encounter [facility] note* Diagnosis Wound of left lower extremity, subsequent encounter- Primary [facility] [place] [facility]* Diagnosis Chronic obstructive pulmonary disease, unspecified COPD type (HCC) documented in this encounter [facility] note* Diagnosis Onset Date Resolution Status Debility [...] disease chronic Essential hypertension chron ic Hypertension [facility] Work Phone: Evaluation note* Diagnosis Type 2 diabetes mellitus without complication, without long-term current use of insulin (HCC) documented in this encounter [facility] note* Diagnosis Type 2 diabetes mellitus without complication, without long-term current use of insulin (HCC) documented in this encounter [facility] note* Diagnosis Onset Date Resolution Status Debility [...] disease chronic Essential hypertension chron ic Hypertension [facility] Work Phone: Evaluation note* Diagnosis DDD (degenerative disc disease), lumbar Degeneration of lumbar or lumbosacral intervertebral disc Essential hypertension Unspecified essential hypertension [facility] Diagnosis Onset Date Resolution Status Debility [...] disease chronic Essential hypertension chron ic Hypertension [facility] Work Phone: Evaluation note* Diagnosis Type 2 diabetes mellitus without complication, without long-term current use of insulin ([facility]) DDD (degenerative disc disease), lumbar Degeneration of lumbar or lumbosacral intervertebral disc [facility] Diagnosis Onset Date Resolution Status Debility [...] disease chronic Essential hypertension chron ic Hypertension [facility] Work Phone: Evaluation note* Diagnosis Onset Date [...] disease chronic Essential hypertension chron ic Hypertension [facility] Work Phone: Evaluation note* Diagnosis DDD (degenerative disc disease), lumbar Degeneration of lumbar or lumbosacral intervertebral disc Essential hypertension Unspecified essential hypertension Type 2 diabetes mellitus without complication, without long-term current use of insulin (HCC) [facility] [place] [facility]* Diagnosis DDD (degenerative disc disease), lumbar Degeneration of lumbar or lumbosacral intervertebral disc [facility] [place] [facility]* Diagnosis Thoracic aortic aneurysm without rupture, [...] unspecified single disease [facility] Diagnosis Dissection of descending thoracic aorta- Primary Dissection of aorta, thoracic Aortic dissection, abdominal (HCC) Dissection of aorta, abdominal [facility] [place] [facility]* Diagnosis Tobacco abuse Tobacco use disorder [facility] [place] [facility]* Diagnosis Chronic obstructive pulmonary disease, unspecified COPD type (HCC)- Primary [facility] [place] [facility]* Diagnosis Stage 3 severe COPD by GOLD classification (HCC)- Primary Dependence on continuous supplemental oxygen Class 1 obesity due to excess calories with body mass index (BMI) of 34.0 to 34.9 in adult, unspecified whether serious comorbidity present [facility] Diagnosis Type 2 diabetes mellitus without complication, without long-term current use of insulin (HCC) DDD (degenerative disc disease), lumbar Degeneration of lumbar or lumbosacral intervertebral disc [facility] [place] [facility]* Diagnosis Type 2 diabetes mellitus without complication, without long-term current use of insulin (HCC) DDD (degenerative disc disease), lumbar Degeneration of lumbar or lumbosacral intervertebral disc [facility] [place] [facility]* Diagnosis Chronic obstructive pulmonary disease, unspecified COPD type (HCC) [facility] [place] [facility]* Diagnosis Stage 3 severe COPD by GOLD classification (HCC) [facility] [place] [facility]* Diagnosis Venous stasis ulcer of right calf without varicose veins, unspecified ulcer stage (HCC)- Primary Essential hypertension Unspecified essential hypertension Type 2 diabetes mellitus without complication, without long-term current use of insulin (HCC) [facility] [place] [facility]* Diagnosis DDD (degenerative disc disease), lumbar Degeneration of lumbar or lumbosacral intervertebral disc Essential hypertension Unspecified essential hypertension documented in this encounter [facility] note* Diagnosis Onset Date Resolution Status Diabetes [...] acute Chronic obstructive pulmonary disease chronic Hypertension [facility] Work Phone: Evaluation note* Diagnosis Encounter for screening mammogram for breast cancer [facility] [place] [facility]* Diagnosis Onset Date Resolution Status Diabetes [...] acute Chronic obstructive pulmonary disease chronic Hypertension [facility] Work Phone: Evaluation note* Diagnosis Essential hypertension- [...] specified viral diseases [facility] [place] [facility] Diagnosis Onset Date Resolution Status Diabetes [...] acute Chronic obstructive pulmonary disease chronic Hypertension [facility] Work Phone: Evaluation note* Diagnosis Shortness of breath [facility] [place] [facility] Diagnosis Shortness of breath documented in this encounter [facility] note* Diagnosis Onset Date Resolution Status Diabetes [...] acute Chronic obstructive pulmonary disease chronic Hypertension [facility] Work Phone: Evaluation note* Diagnosis Dysuria- Primary [facility] Diagnosis Onset Date Resolution Status Diabetes [...] Hypertension chronic CATHI (acute kidney injury) ac juan carlos Anemia acute Diabetes mellitus acute [place] acute Weakness acute Chronic obstructive pulmonary disease chronic Hypertension [facility] Work Phone: Evaluation note* Diagnosis Essential hypertension- [...] heart failure (HCC) [facility] Diagnosis Onset Date Resolution Status Diabetes [...] chronic CATHI (acute kidney injury) re solved [facility] Work Phone: Evaluation note* Diagnosis Onset Date [...] acute Chronic obstructive pulmonary disease chronic Hypertension [facility] Work Phone: Evaluation note* Diagnosis Diarrhea, unspecified [...] lumbosacral intervertebral disc [facility] [place] [facility]* Diagnosis Anemia, unspecified type- Primary documented in this encounter [facility] note* Diagnosis Chronic obstructive pulmonary disease, unspecified COPD type (HCC)- Primary Dependence on continuous supplemental oxygen Former smoker Personal history of tobacco use, presenting hazards to health Class 2 obesity due to excess calories with body mass index (BMI) of 35.0 to 35.9 in adult, unspecified whether serious comorbidity present documented in this encounter [facility] note* Diagnosis Onset Date Resolution Status Diabetes [...] acute Chronic obstructive pulmonary disease chronic Hypertension [facility] Work Phone: Evaluation note* Diagnosis Onset Date [...] acute Chronic obstructive pulmonary disease chronic Hypertension [facility] Work Phone: Evaluation note* Diagnosis Stage 3 severe COPD by GOLD classification ([facility]) [facility] [place] [facility]* Diagnosis DDD (degenerative disc disease), lumbar Degeneration of lumbar or lumbosacral intervertebral disc Essential hypertension Unspecified essential hypertension [facility] [place] [facility]* Diagnosis Dissection of descending thoracic aorta (HCC) Dissection of aorta, thoracic Aortic dissection, abdominal (HCC) Dissection of aorta, abdominal documented in this encounter [facility] note* Diagnosis Dissection of descending thoracic aorta (HCC) Dissection of aorta, thoracic Aortic dissection, abdominal (HCC) Dissection of aorta, abdominal [facility] [place] [facility]* Diagnosis Type 2 diabetes mellitus without complication, without long-term current use of insulin (HCC) DDD (degenerative disc disease), lumbar Degeneration of lumbar or lumbosacral intervertebral disc [facility] [place] [facility]* Diagnosis Chronic obstructive pulmonary disease, unspecified COPD type ([facility]) documented in this encounter [facility] note* Diagnosis COPD, severe (HCC)- Primary Chronic airway obstruction, not elsewhere classified Chronic respiratory failure with hypoxia (HCC) Chronic respiratory failure Former cigarette smoker Personal history of tobacco use, presenting hazards to health Class 2 obesity [facility] [place] [facility]* Diagnosis Restless leg- Primary Restless legs syndrome (RLS) Type 2 diabetes mellitus without complication, without long-term current use of insulin (HCC) DDD (degenerative disc disease), lumbar Degeneration of lumbar or lumbosacral intervertebral disc documented [facility] [place] [facility]* Diagnosis Restless leg Restless legs syndrome (RLS) documented [facility] this [facility] [place] [facility]* Diagnosis Type 2 diabetes mellitus without complication, without long-term current use of insulin (HCC) DDD (degenerative disc disease), lumbar Degeneration of lumbar or lumbosacral intervertebral disc documented [facility] this [facility] [place] noteNo assessment information [facility]WPro[facility] Work Phone: Evaluation note* Diagnosis Bacterial pneumonia- Primary Bacterial pneumonia, unspecified Type 2 diabetes mellitus without complication, without long-term current use of insulin (HCC) Chronic respiratory failure with hypoxia (HCC) Chronic respiratory failure MICHEL (obstructive sleep apnea) Obstructive sleep apnea (adult) (pediatric) documented in this encounter [facility] note* Diagnosis Renal insufficiency- Primary Unspecified disorder of kidney and ureter Anemia, unspecified type Abdominal aortic aneurysm (AAA) without rupture, unspecified part (HCC) Infiltrate noted on imaging study Other nonspecific (abnormal) findings on radiological and other examinations of body structure documented in this encounter [facility] note* Diagnosis Hypoxemia- Primary [facility] [place] [facility]* Diagnosis Thoracic aortic aneurysm without rupture, unspecified part (HCC)- Primary Dissection of descending aorta (HCC) Abdominal aortic aneurysm (AAA) without rupture, unspecified part (HCC) documented [facility] [place] [facility]* Diagnosis Thoracic aortic aneurysm without rupture, unspecified part (HCC)- Primary Dissection of descending aorta (HCC) Abdominal aortic aneurysm (AAA) without rupture, unspecified part (HCC) Centrilobular emphysema (HCC) Other emphysema 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, thoracoabdominal documented in this encounter [facility] note* Diagnosis Microscopic hematuria- Primary [facility] Hypoxemia [facility] [place] [facility]* Diagnosis Pneumonia of both lower lobes due to infectious organism- Primary COPD, severe (HCC) Chronic airway obstruction, not elsewhere classified Chronic respiratory failure with hypoxia (HCC) Chronic respiratory failure Former cigarette smoker Personal history of tobacco use, presenting hazards to health Class 2 obesity documented [facility] [place] [facility]* Diagnosis Restless leg Restless legs syndrome (RLS) Type 2 diabetes mellitus without complication, without long-term current use of insulin (HCC) [facility] [place] [facility]* Diagnosis Thoracic aortic aneurysm without rupture, unspecified part (HCC) Dissection of descending aorta (HCC) Abdominal aortic aneurysm (AAA) without rupture, unspecified part (HCC) 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, thoracoabdominal documented [facility] [place] [facility]* Diagnosis Restless leg Restless legs syndrome (RLS) [facility] [place] [facility]* Diagnosis 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, 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) Thoracic aortic aneurysm without rupture, unspecified part (HCC) Type 2 diabetes mellitus with diabetic nephropathy, with long-term current use of insulin (HCC) NYHA class 2 and ACC/AHA stage C acute on chronic systolic congestive heart failure (HCC) documented [facility] [place] [facility]* Diagnosis Type 2 diabetes mellitus without complication, without long-term current use of insulin (HCC) [facility] [place] [facility]* Diagnosis COPD, severe (HCC) Chronic airway obstruction, not elsewhere classified [facility] [place] [facility]* Diagnosis COPD, severe (HCC)- Primary Chronic airway obstruction, not elsewhere classified Chronic respiratory failure with hypoxia (HCC) Chronic respiratory failure Former cigarette smoker Personal history of tobacco use, presenting hazards to health Class 2 obesity [facility] [place] [facility]* Diagnosis Shortness of breath [facility] [place] [facility]* Diagnosis COPD, severe (HCC) Chronic airway obstruction, not elsewhere classified [facility] [place] [facility]* Diagnosis Restless leg Restless legs syndrome (RLS) [facility] [place] [facility]* Diagnosis Bacterial pneumonia Bacterial pneumonia, unspecified [facility] Diagnosis Essential hypertension- Primary Unspecified essential [...] and behavioral disorders [facility] [place] [facility]* Diagnosis Anemia, unspecified type- Primary History of rectal bleeding Personal history of other diseases of digestive system Hypomagnesemia Disorders of magnesium metabolism [facility] [place] [facility]* Diagnosis Acute and chronic respiratory failure with hypoxia (HCC)- Primary Acute and chronic respiratory failure documented [facility] [place] [facility]* Diagnosis COPD, severe (HCC) Chronic airway obstruction, not elsewhere classified [facility] [place] [facility]* Diagnosis DDD (degenerative disc disease), lumbar Degeneration of lumbar or lumbosacral intervertebral disc Essential hypertension Unspecified essential hypertension Restless leg Restless legs syndrome (RLS) Hypomagnesemia Disorders of magnesium metabolism [facility] [place] [facility]* Diagnosis Restless leg Restless legs syndrome (RLS) documented [facility] [place] [facility]* Diagnosis Restless leg Restless legs syndrome (RLS) [facility] [place] [facility]* Diagnosis Urinary tract infection without hematuria, site unspecified- Primary Essential hypertension Unspecified essential hypertension Type 2 diabetes mellitus without complication, without long-term current use of insulin (HCC) Acute constipation Unspecified constipation Abdominal pain, unspecified abdominal location Chronic respiratory failure with hypoxia (HCC) Chronic respiratory failure [facility] [place] [facility]* Diagnosis Type 2 diabetes mellitus without complication, without long-term current use of insulin (HCC) documented in this encounter [facility] note* Diagnosis Restless leg Restless legs syndrome (RLS) documented in this encounter [facility] note* Diagnosis Restless leg Restless legs syndrome (RLS) documented in this encounter [facility] note* Diagnosis Restless leg Restless legs syndrome (RLS) documented in this encounter [facility] note* Diagnosis DDD (degenerative disc disease), lumbar Degeneration of lumbar or lumbosacral intervertebral disc Essential hypertension Unspecified essential hypertension documented in this encounter [facility] note* Diagnosis 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)- Primary Dissection of aorta, unspecified site documented in this encounter [facility] note* Diagnosis COPD, severe (HCC) Chronic airway obstruction, not elsewhere classified documented in this encounter [facility] note* Diagnosis COPD, severe (HCC) Chronic airway obstruction, not elsewhere classified documented in this encounter [facility] note* Diagnosis Aneurysm of left common iliac artery Thoracic aortic aneurysm without rupture, unspecified part 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, thoracoabdominal Anemia, unspecified type History of rectal bleeding Personal history of other diseases of digestive system documented in this encounter [facility] note* Diagnosis Anemia, unspecified type documented in this encounter [facility] note* Diagnosis Acute and chronic respiratory failure with hypoxia (HCC)- Primary Acute and chronic respiratory failure [facility] Nisha Magallon [facility] January 09, 2023 1:36pm Note Date/Time January 09, 2023 1:3 6pm [facility] [address] [place] [id number] Progress Note - Wound Care 01/09/23 1333 MR#: [id number] Acct: [id number] Name: TAYLORKANDI K Rep #:[id number] : 1945 77 From: Nisha Magallon DO [...] Start: 01/09/23 09:34 Freq: Status: Active Protocol: CHING Activity Type Activity Date Activity User E-sign Co-sign Detail Recorded Client Recorded Date Recorded By Document 01/09/23 09:34 CAROLINE [id number] 01/09/23 09:38 01/09/23 09:34 WC - Today's Visit Information Type of service Follow-up Visit (Physician/CORROSION CONTROL ENGINEER ) Arrival Mode Ambulatory, Walker Transfer Assistance [...] Recorded Date Recorded By Document 01/09/23 09:34 CRAOLINE [id number] 01/09/23 09:38 01/09/23 09:34 Wound Center Nurse 1 #2 R POST LE -Combined with other wound No -Current Size (cm) - Length 0.1 -Current Size (cm) - Width 0.1 -Current Size (cm) - Depth 0.1 -Total Square Cm 0.01 -Tunneling No -Undermining/Tunneling No -Circular Undermining No -Exudate Amt Medium -Exudate Type Serosanguineous -Wound Margin Distinct, Outline Attached -Granulation Amt Medium (34-66%) -Granulation Quality Conley -Slough/Fibrin Yes -Necrosis Amt Medium (34-66%) -Necrotic [...] Date Recorded By Document 01/09/23 09:43 MW [id number] 01/09/23 09:52 MW 01/09/23 09:43 Wound Center [...] Date Recorded By Document 01/09/23 10:05 RB [id number] 01/09/23 10:07 RB 01/09/23 10:05 Wound Care [...] Diabetes mellitus type: type 2 Diabetes mellitus mcc insulin use: without retirement use Diabetes mellitus complication status: with neurologic [...] se her again in the future. Note: [employer] speech recognition confectionery cooker software was used to create portions of this document. Sound-alike and misspelled words, as well as other confectionery cooker errors may be contained in the documentation. 01/09/23 1336 <Electronically signed by Nisha Magallon DO> Cosigner Signature (if applicable): CC: ~ Signed [facility] Work Phone: Reason for referral (narrative)* Diagnostic Procedure Only (Routine) - Pending Review Specialty Diagnoses / Procedures Referred By Cyrus castillo Referred To Contact [facility] Diagnoses Encounter for screening mammogram for breast cancer Procedures KALI SCREENING SCREENING MAMMOGRAPHY BI 2-VIEW BREAST INC Jalyn White MD [address] [place] [address] [facility] [address] [place] [id number] Referral ID Status Reason Start Date Expiration Date Visits Requested Visits Authorized [id number] Pending Review Auto-Generat ed Referral 08/06/2022 09/05/2023 1 1 [facility] for referral (narrative)* Outpatient Procedure (Routine) - Pending Review Specialty Diagnoses / Procedures Referred By Cyrus castillo Referred To [facility] Diagnoses Hypoxemia Procedures OXIMETRY WITH AMBULATION NONINVASIVE EAR/PULSE OXIMETRY MULTIPLE Zackery Mckeon MD [address] [place] [address] [facility] [place] [address] [place] [address] Referral ID Status Reason Start Date Expiration Date Visits Requested Visits Authorized [id number] Pending Review Auto-Generat ed Referral 09/10/2023 10/09/2024 1 1 [facility]No reason for referral information availableWProMedica [facility] Work Phone: Reason for visit Narrative* Consult, Test, Treat (Routine) - Closed Specialty Diagnoses / Procedures Referred By Cyrus castillo Referred To Contact Gastroenterology Diagnoses Anemia, unspecified type History of rectal bleeding Procedures CONSULT TO GASTROENTEROLOGY OFFICE/OUTPATIENT [facility] 60 MINUTES Jalyn Smith MD [address] [place] [address] Phone: tel: fax: Referral ID Status Reason Start Date Expiration Date V isits Requested Visits Authorized [id number] Closed PCP Requested Referral 03/11/2024 03/11/2025 1 1 [facility] Summary Purpose Family History No Family History Records Found Relationship Condition Age at Onset Recorded Date/T rebel mother Malignant neoplasm Unknown father Chronic obstructive pulmonary disease Unk nown Malignant neoplasm Unknown son Cardiac disease Unknown Advance Directives No Advanced Directives Records FoundDocuments on File Type Date Recorded 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 Advance Directive(s) 12/22/2018 11:34 PM Advance Directive Response Recorded Date/ Time Name of Medical Power of Senior Materials Scientist Glenna Mckenzie July 25, 2021 2:08am Name of Medical Power of Senior Materials Scientist two daughters July 26, 2021 4:36pm Living Will Yes August 30, 2021 12:44pm Power of Senior Materials Scientist Yes August 30 12:44pm Advance Directive Response Recorded Date/ Time Living Will Yes August 30, 2021 12:44pm Power of Senior Materials Scientist Yes August 30 12:44pm Advance Directive Response Recorded Date/ Time Living Will Yes August 30, 2021 11:44am Power of Senior Materials Scientist Yes August 30 11:44am Advance Directive Response Recorded Date/ Time Name of Medical Power of Senior Materials Scientist Karson Baldemar December 10, 2022 5:53pm Living Will Yes December 10, 2022 5 :53pm Power of Senior Materials Scientist Yes December 10, 2022 5:53pm Advance Directive Response Recorded Date/ Time Name of Medical Power of Senior Materials Scientist karson [email or web address]. lonny mckenzie December 10, 2022 11:13pm Living Will Yes December 10, 2022 1 1:13pm Power of Senior Materials Scientist Yes December 10, 2022 11:13pm Advance Directive Response Recorded Date/ Time Name of Medical Power of Senior Materials Scientist Rin Correia, daughter December 16, 2022 4:47pm Living Will Yes December 16, 2022 4:47pm Power of Senior Materials Scientist Yes December 16 4:47pm Name of Medical Power of Senior Materials Scientist karson viridianalois. lonny mckenzie December 10, 2022 11:13pm Advance Directive Response Recorded Date/ Time Living Will Yes August 28, 2023 2:28pm Power of Senior Materials Scientist Yes August 27 2:28pm Name of Medical Power of Senior Materials Scientist ? August 28, 2023 2:28pm Advance Directive Response Recorded Date/ Time Living Will No September 04, 2024 7:50am Do you have a Healthcare Power of Senior Materials Scientist? No September 04, 2024 7:50am Chief Complaint [...] Chief Complaint Admit Date Opioid dependence, uncomplicated 2024 1:08pm Chief Complaint Admit Date Opioid dependence, uncomplicated 2024 1:08pm abd pain September 04, 2024 7:0 3am Reason for Referral Specialty Diagnoses / Procedures Referred By Cyrus castillo Referred To Contact Vascular Surgery Diagnoses Dissection of descending aorta (HCC) Thoracic aortic aneurysm without rupture, unspecified part Procedures CONSULT TO VASCULAR SURGERY OFFICE/OUTPATIENT [facility] 60-74 MINUTES Jalyn Smith MD [address] [place] [address] Referral ID Status Reason Start Date Expiration Date Visits Requested Visits Authorized [id number] Authorized PCP Requested Referral 2 03/20/2023 1 1 Specialty Diagnoses / Procedures Referred By Cyrus castillo Referred To Contact Pulmonary and Critical Care Medicine Diagnoses Centrilobular emphysema (HCC) Procedures CONSULT TO PULM/CRITICAL CARE OFFICE/OUTPATIENT [facility] 60-74 MINUTES Jalyn Smith MD [address] [place] [address] Referral ID Status Reason Start Date Expiration Date Visits Requested Visits Authorized [id number] Authorized PCP Requested Referral 2 03/20/2023 1 1 Specialty Diagnoses / Procedures Referred By Contac t Referred To Contact CT IMAGING Diagnoses 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, abdominal (HCC) Procedures CTA CHEST (NONGATED) W IVCON CT ANGIOGRAPHY CHEST W/CONTRAST/NONCONTRAST Herminia Carrera, CHEST PAINTING AND SEALING SUPERVISOR.CORROSION CONTROL ENGINEER [address] [place] [address] Ct Imaging Referral ID Status Reason Start Date Expiration Date Visits Requested Visits Authorized [id number] Pending Review Auto-Generat ed Referral 2 04/19/2023 1 1 Specialty Diagnoses / Procedures Referred By Contac t Referred To Contact CT IMAGING Diagnoses 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, abdominal (HCC) Procedures CTA ABD/PEL W IVCON CT ANGIO ABD&PLVIS CNTRST MTRL W/WO CNTRST Herminia Sanz, CHEST PAINTING AND SEALING SUPERVISOR.CORROSION CONTROL ENGINEER 1 [facility] [address] [place] [address] [address] [address] Referral ID Status Reason Start Date Expiration Date Visits Requested Visits Authorized [id number] Pending Review Auto-Generat ed Referral 2 04/19/2023 1 1 Specialty Diagnoses / Procedures Referred By Contac t Referred To Contact Pain Management Diagnoses Osteoarthritis of both knees, unspecified osteoarthritis type DDD (degenerative disc disease), lumbar Procedures CONSULT TO PAIN MGT OFFICE/OUTPATIENT [facility] 60-74 MINUTES Jalyn Smith MD [address] [place] [address] Referral ID Status Reason Start Date Expiration Date Visits Requested Visits Authorized [id number] Authorized PCP Requested Referral 01/12/2023 01/12/2024 1 1 Specialty Diagnoses / Procedures Referred By Contac t Referred To Contact CT IMAGING Diagnoses 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, abdominal (HCC) Procedures CTA ABD/PEL W IVCON CT ANGIO ABD&PLVIS CNTRST MTRL W/WO CNTRST Herminia Sanz, CHEST PAINTING AND SEALING SUPERVISOR.CORROSION CONTROL ENGINEER [address] [facility] [address] [place] [address] [place] [address] Referral ID Status Reason Start Date Expiration Date V isits Requested Visits Authorized [id number] Closed Auto-Generat ed Referral Patient Cleared - Admin/Chairm an/Director advise to proceed or did not respond 04/18/2022 05/18/2022 1 1 Specialty Diagnoses / Procedures Referred By Contac t Referred To Contact CT IMAGING Diagnoses 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, abdominal (HCC) Procedures CTA CHEST (NONGATED) W IVCON CT ANGIOGRAPHY CHEST W/CONTRAST/NONCONTRAST Herminia Carrera, CHEST PAINTING AND SEALING SUPERVISOR.CORROSION CONTROL ENGINEER [address] [facility] [address] [place] [address] [place] [address] Referral ID Status Reason Start Date Expiration Date V isits Requested Visits Authorized [id number] Closed Auto-Generat ed Referral Patient Cleared - Admin/Chairm an/Director advise to proceed or did not respond 04/18/2022 05/18/2022 1 1 Specialty Diagnoses / Procedures Referred By Contac t Referred To Contact Vascular Surgery Diagnoses Thoracic aortic aneurysm without rupture, unspecified part (HCC) Dissection of descending aorta (HCC) Abdominal aortic aneurysm (AAA) without rupture, unspecified part (HCC) Procedures CONSULT TO VASCULAR SURGERY OFFICE/OUTPATIENT [facility] 60 MINUTES Jalyn Smith MD [address] [place] [address] Referral ID Status Reason Start Date Expiration Date Visits Requested Visits Authorized [id number] Authorized PCP Requested Referral 09/09/2023 09/08/2024 1 1 Specialty Diagnoses / Procedures Referred By Contac t Referred To Contact CT IMAGING Diagnoses Abdominal aortic aneurysm (AAA) without rupture, unspecified part (HCC) Dissection of thoracoabdominal aorta (HCC) Procedures CTA ABD/PEL W IVCON CT ANGIO ABD&PLVIS CNTRST MTRL W/WO CNTRST Yaniv Carvajal MD [address] [place] [address] [address] [place] [address] Referral ID Status Reason Start Date Expiration Date Visits Requested Visits Authorized [id number] Pending Review Auto-Generat ed Referral 09/21/2023 10/20/2024 1 1 Specialty Diagnoses / Procedures Referred By Contac t Referred To Contact CT IMAGING Diagnoses Thoracic aortic aneurysm without rupture, unspecified part (HCC) Dissection of descending aorta (HCC) Procedures CTA CHEST (NONGATED) WO/W IVCON CT ANGIOGRAPHY CHEST W/CONTRAST/NONCONTRAST Yaniv Todd MD [address] [place] [address] Ct Imaging [facility] Referral ID Status Reason Start Date Expiration Date Visits Requested Visits Authorized [id number] Pending Review Auto-Generat ed Referral 09/21/2023 10/20/2024 1 1 Specialty Diagnoses / Procedures Referred By Contac t Referred To Contact CT IMAGING Diagnoses 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) Thoracic aortic aneurysm without rupture, unspecified part (HCC) Dissection of thoracoabdominal aorta (HCC) Procedures CTA ABD/PEL W IVCON CT ANGIO ABD&PLVIS CNTRST MTRL W/WO CNTRST IMGES Yaniv Todd MD [address] [place] [address] Ct Imaging [facility] Referral ID Status Reason Start Date Expiration Date Visits Requested Visits Authorized [id number] Pending Review Auto-Generat ed Referral 11/04/2024 12/04/2024 1 1 Specialty Diagnoses / Procedures Referred By Contac t Referred To Contact CT IMAGING Diagnoses Chest pain, unspecified type Procedures CTA CHEST (NONGATED) W IVCON CT ANGIOGRAPHY CHEST W/CONTRAST/NONCONTRAST Yaniv Todd MD [address] [place] [address] Ct Imaging [facility] Referral ID Status Reason Start Date Expiration Date Visits Requested Visits Authorized [id number] Pending Review Auto-Generat ed Referral 11/04/2024 12/04/2024 1 1 Specialty Diagnoses / Procedures Referred By Contac t Referred To Contact Gastroenterology Diagnoses Anemia, unspecified type History of rectal bleeding Procedures CONSULT TO GASTROENTEROLOGY OFFICE/OUTPATIENT [facility] 60 MINUTES Jalyn Smith MD [facility] [place] [address] Referral ID Status Reason Start Date Expiration Date Visits Requested Visits Authorized [id number] Authorized PCP Requested Referral 03/11/2024 03/11/2025 1 1 Additional Source Comments INFORMATION SOURCE (unrecogn ized section and content) DATE CREATED AUTHOR 07/05/2019 [facility] DATE CREATED AUTHOR AUTHOR'S ORGANIZ ATION 10/13/2020 [facility] DATE CREATED AUTHOR AUTHOR'S ORGANIZ ATION 09/25/2023 [facility] DATE CREATED AUTHOR AUTHOR'S ORGANIZ ATION 09/29/2024 [facility] DATE CREATED AUTHOR AUTHOR'S ORGANIZ ATION 12/03/2024 [facility] DATE CREATED AUTHOR AUTHOR'S ORGANIZ ATION 03/23/2025 [facility] Source Comments (unrecognize d section and content) In the event this informatio n is protected by the Federal Confidentiality of Alcohol and Drug Abuse Patient Records regulations: The Federal rules restrict any use of the information to criminally investigate or prosecute any alcohol or drug abuse patient.[facility] HospitalIn the event this information is protected by the Federal Confidentiality of Alcohol and Drug Abuse Patient Records regulations: The Federal rules restrict any use of the information to criminally investigate or prosecute any alcohol or drug abuse patient.[facility] HospitalIn the event this information is protected by the Federal Confidentiality of Alcohol and Drug Abuse Patient Records regulations: The Federal rules restrict any use of the information to criminally investigate or prosecute any alcohol or drug abuse patient.[facility] HospitalIn the event this information is protected by the Federal Confidentiality of Alcohol and Drug Abuse Patient Records regulations: The Federal rules restrict any use of the information to criminally investigate or prosecute any alcohol or drug abuse patient.[facility] HospitalIn the event this information is protected by the Federal Confidentiality of Alcohol and Drug Abuse Patient Records regulations: The Federal rules restrict any use of the information to criminally investigate or prosecute any alcohol or drug abuse patient.[facility] HospitalIn the event this information is protected by the Federal Confidentiality of Alcohol and Drug Abuse Patient Records regulations: The Federal rules restrict any use of the information to criminally investigate or prosecute any alcohol or drug abuse patient.[facility] HospitalIn the event this information is protected by the Federal Confidentiality of Alcohol and Drug Abuse Patient Records regulations: The Federal rules restrict any use of the information to criminally investigate or prosecute any alcohol or drug abuse patient.[facility] HospitalIn the event this information is protected by the Federal Confidentiality of Alcohol and Drug Abuse Patient Records regulations: The Federal rules restrict any use of the information to criminally investigate or prosecute any alcohol or drug abuse patient.[facility] HospitalIn the event this information is protected by the Federal Confidentiality of Alcohol and Drug Abuse Patient Records regulations: The Federal rules restrict any use of the information to criminally investigate or prosecute any alcohol or drug abuse patient.[facility] HospitalIn the event this information is protected by the Federal Confidentiality of Alcohol and Drug Abuse Patient Records regulations: The Federal rules restrict any use of the information to criminally investigate or prosecute any alcohol or drug abuse patient.[facility] HospitalIn the event this information is protected by the Federal Confidentiality of Alcohol and Drug Abuse Patient Records regulations: The Federal rules restrict any use of the information to criminally investigate or prosecute any alcohol or drug abuse patient.[facility] HospitalIn the event this information is protected by the Federal Confidentiality of Alcohol and Drug Abuse Patient Records regulations: The Federal rules restrict any use of the information to criminally investigate or prosecute any alcohol or drug abuse patient.[facility] HospitalIn the event this information is protected by the Federal Confidentiality of Alcohol and Drug Abuse Patient Records regulations: The Federal rules restrict any use of the information to criminally investigate or prosecute any alcohol or drug abuse patient.[facility] HospitalIn the event this information is protected by the Federal Confidentiality of Alcohol and Drug Abuse Patient Records regulations: The Federal rules restrict any use of the information to criminally investigate or prosecute any alcohol or drug abuse patient.[facility] HospitalIn the event this information is protected by the Federal Confidentiality of Alcohol and Drug Abuse Patient Records regulations: The Federal rules restrict any use of the information to criminally investigate or prosecute any alcohol or drug abuse patient.[facility] HospitalIn the event this information is protected by the Federal Confidentiality of Alcohol and Drug Abuse Patient Records regulations: The Federal rules restrict any use of the information to criminally investigate or prosecute any alcohol or drug abuse patient.[facility] HospitalIn the event this information is protected by the Federal Confidentiality of Alcohol and Drug Abuse Patient Records regulations: The Federal rules restrict any use of the information to criminally investigate or prosecute any alcohol or drug abuse patient.[facility] HospitalIn the event this information is protected by the Federal Confidentiality of Alcohol and Drug Abuse Patient Records regulations: The Federal rules restrict any use of the information to criminally investigate or prosecute any alcohol or drug abuse patient.[facility] HospitalIn the event this information is protected by the Federal Confidentiality of Alcohol and Drug Abuse Patient Records regulations: The Federal rules restrict any use of the information to criminally investigate or prosecute any alcohol or drug abuse patient.[facility] HospitalIn the event this information is protected by the Federal Confidentiality of Alcohol and Drug Abuse Patient Records regulations: The Federal rules restrict any use of the information to criminally investigate or prosecute any alcohol or drug abuse patient.[facility] HospitalIn the event this information is protected by the Federal Confidentiality of Alcohol and Drug Abuse Patient Records regulations: The Federal rules restrict any use of the information to criminally investigate or prosecute any alcohol or drug abuse patient.[facility] HospitalIn the event this information is protected by the Federal Confidentiality of Alcohol and Drug Abuse Patient Records regulations: The Federal rules restrict any use of the information to criminally investigate or prosecute any alcohol or drug abuse patient.[facility] HospitalIn the event this information is protected by the Federal Confidentiality of Alcohol and Drug Abuse Patient Records regulations: The Federal rules restrict any use of the information to criminally investigate or prosecute any alcohol or drug abuse patient.[facility] HospitalIn the event this information is protected by the Federal Confidentiality of Alcohol and Drug Abuse Patient Records regulations: The Federal rules restrict any use of the information to criminally investigate or prosecute any alcohol or drug abuse patient.[facility] HospitalIn the event this information is protected by the Federal Confidentiality of Alcohol and Drug Abuse Patient Records regulations: The Federal rules restrict any use of the information to criminally investigate or prosecute any alcohol or drug abuse patient.[facility] HospitalIn the event this information is protected by the Federal Confidentiality of Alcohol and Drug Abuse Patient Records regulations: The Federal rules restrict any use of the information to criminally investigate or prosecute any alcohol or drug abuse patient.[facility] HospitalIn the event this information is protected by the Federal Confidentiality of Alcohol and Drug Abuse Patient Records regulations: The Federal rules restrict any use of the information to criminally investigate or prosecute any alcohol or drug abuse patient.[facility] HospitalIn the event this information is protected by the Federal Confidentiality of Alcohol and Drug Abuse Patient Records regulations: The Federal rules restrict any use of the information to criminally investigate or prosecute any alcohol or drug abuse patient.[facility] HospitalIn the event this information is protected by the Federal Confidentiality of Alcohol and Drug Abuse Patient Records regulations: The Federal rules restrict any use of the information to criminally investigate or prosecute any alcohol or drug abuse patient.[facility] HospitalIn the event this information is protected by the Federal Confidentiality of Alcohol and Drug Abuse Patient Records regulations: The Federal rules restrict any use of the information to criminally investigate or prosecute any alcohol or drug abuse patient.[facility] HospitalIn the event this information is protected by the Federal Confidentiality of Alcohol and Drug Abuse Patient Records regulations: The Federal rules restrict any use of the information to criminally investigate or prosecute any alcohol or drug abuse patient.[facility] HospitalIn the event this information is protected by the Federal Confidentiality of Alcohol and Drug Abuse Patient Records regulations: The Federal rules restrict any use of the information to criminally investigate or prosecute any alcohol or drug abuse patient.[facility] HospitalIn the event this information is protected by the Federal Confidentiality of Alcohol and Drug Abuse Patient Records regulations: The Federal rules restrict any use of the information to criminally investigate or prosecute any alcohol or drug abuse patient.[facility]In the event this information is protected by the Federal Confidentiality of Alcohol and Drug Abuse Patient Records regulations: The Federal rules restrict any use of the information to criminally investigate or prosecute any alcohol or drug abuse patient.[facility] HospitalIn the event this information is protected by the Federal Confidentiality of Alcohol and Drug Abuse Patient Records regulations: The Federal rules restrict any use of the information to criminally investigate or prosecute any alcohol or drug abuse patient.[facility] HospitalIn the event this information is protected by the Federal Confidentiality of Alcohol and Drug Abuse Patient Records regulations: The Federal rules restrict any use of the information to criminally investigate or prosecute any alcohol or drug abuse patient.[facility] HospitalIn the event this information is protected by the Federal Confidentiality of Alcohol and Drug Abuse Patient Records regulations: The Federal rules restrict any use of the information to criminally investigate or prosecute any alcohol or drug abuse patient.[facility] HospitalIn the event this information is protected by the Federal Confidentiality of Alcohol and Drug Abuse Patient Records regulations: The Federal rules restrict any use of the information to criminally investigate or prosecute any alcohol or drug abuse patient.[facility] HospitalIn the event this information is protected by the Federal Confidentiality of Alcohol and Drug Abuse Patient Records regulations: The Federal rules restrict any use of the information to criminally investigate or prosecute any alcohol or drug abuse patient.[facility] HospitalIn the event this information is protected by the Federal Confidentiality of Alcohol and Drug Abuse Patient Records regulations: The Federal rules restrict any use of the information to criminally investigate or prosecute any alcohol or drug abuse patient.[facility] HospitalIn the event this information is protected by the Federal Confidentiality of Alcohol and Drug Abuse Patient Records regulations: The Federal rules restrict any use of the information to criminally investigate or prosecute any alcohol or drug abuse patient.[facility] HospitalIn the event this information is protected by the Federal Confidentiality of Alcohol and Drug Abuse Patient Records regulations: The Federal rules restrict any use of the information to criminally investigate or prosecute any alcohol or drug abuse patient.[facility] HospitalIn the event this information is protected by the Federal Confidentiality of Alcohol and Drug Abuse Patient Records regulations: The Federal rules restrict any use of the information to criminally investigate or prosecute any alcohol or drug abuse patient.[facility] HospitalIn the event this information is protected by the Federal Confidentiality of Alcohol and Drug Abuse Patient Records regulations: The Federal rules restrict any use of the information to criminally investigate or prosecute any alcohol or drug abuse patient.[facility] HospitalIn the event this information is protected by the Federal Confidentiality of Alcohol and Drug Abuse Patient Records regulations: The Federal rules restrict any use of the information to criminally investigate or prosecute any alcohol or drug abuse patient.[facility] HospitalIn the event this information is protected by the Federal Confidentiality of Alcohol and Drug Abuse Patient Records regulations: The Federal rules restrict any use of the information to criminally investigate or prosecute any alcohol or drug abuse patient.[facility] HospitalIn the event this information is protected by the Federal Confidentiality of Alcohol and Drug Abuse Patient Records regulations: The Federal rules restrict any use of the information to criminally investigate or prosecute any alcohol or drug abuse patient.[facility] HospitalIn the event this information is protected by the Federal Confidentiality of Alcohol and Drug Abuse Patient Records regulations: The Federal rules restrict any use of the information to criminally investigate or prosecute any alcohol or drug abuse patient.[facility] HospitalIn the event this information is protected by the Federal Confidentiality of Alcohol and Drug Abuse Patient Records regulations: The Federal rules restrict any use of the information to criminally investigate or prosecute any alcohol or drug abuse patient.[facility] HospitalIn the event this information is protected by the Federal Confidentiality of Alcohol and Drug Abuse Patient Records regulations: The Federal rules restrict any use of the information to criminally investigate or prosecute any alcohol or drug abuse patient.[facility] HospitalIn the event this information is protected by the Federal Confidentiality of Alcohol and Drug Abuse Patient Records regulations: The Federal rules restrict any use of the information to criminally investigate or prosecute any alcohol or drug abuse patient.[facility] HospitalIn the event this information is protected by the Federal Confidentiality of Alcohol and Drug Abuse Patient Records regulations: The Federal rules restrict any use of the information to criminally investigate or prosecute any alcohol or drug abuse patient.[facility] HospitalIn the event this information is protected by the Federal Confidentiality of Alcohol and Drug Abuse Patient Records regulations: The Federal rules restrict any use of the information to criminally investigate or prosecute any alcohol or drug abuse patient.[facility] HospitalIn the event this information is protected by the Federal Confidentiality of Alcohol and Drug Abuse Patient Records regulations: The Federal rules restrict any use of the information to criminally investigate or prosecute any alcohol or drug abuse patient.[facility] HospitalIn the event this information is protected by the Federal Confidentiality of Alcohol and Drug Abuse Patient Records regulations: The Federal rules restrict any use of the information to criminally investigate or prosecute any alcohol or drug abuse patient.[facility] HospitalIn the event this information is protected by the Federal Confidentiality of Alcohol and Drug Abuse Patient Records regulations: The Federal rules restrict any use of the information to criminally investigate or prosecute any alcohol or drug abuse patient.[facility] HospitalIn the event this information is protected by the Federal Confidentiality of Alcohol and Drug Abuse Patient Records regulations: The Federal rules restrict any use of the information to criminally investigate or prosecute any alcohol or drug abuse patient.[facility] HospitalIn the event this information is protected by the Federal Confidentiality of Alcohol and Drug Abuse Patient Records regulations: The Federal rules restrict any use of the information to criminally investigate or prosecute any alcohol or drug abuse patient.[facility] HospitalIn the event this information is protected by the Federal Confidentiality of Alcohol and Drug Abuse Patient Records regulations: The Federal rules restrict any use of the information to criminally investigate or prosecute any alcohol or drug abuse patient.[facility] HospitalIn the event this information is protected by the Federal Confidentiality of Alcohol and Drug Abuse Patient Records regulations: The Federal rules restrict any use of the information to criminally investigate or prosecute any alcohol or drug abuse patient.[facility] HospitalIn the event this information is protected by the Federal Confidentiality of Alcohol and Drug Abuse Patient Records regulations: The Federal rules restrict any use of the information to criminally investigate or prosecute any alcohol or drug abuse patient.[facility] HospitalIn the event this information is protected by the Federal Confidentiality of Alcohol and Drug Abuse Patient Records regulations: The Federal rules restrict any use of the information to criminally investigate or prosecute any alcohol or drug abuse patient.[facility] HospitalIn the event this information is protected by the Federal Confidentiality of Alcohol and Drug Abuse Patient Records regulations: The Federal rules restrict any use of the information to criminally investigate or prosecute any alcohol or drug abuse patient.[facility] HospitalIn the event this information is protected by the Federal Confidentiality of Alcohol and Drug Abuse Patient Records regulations: The Federal rules restrict any use of the information to criminally investigate or prosecute any alcohol or drug abuse patient.[facility] HospitalIn the event this information is protected by the Federal Confidentiality of Alcohol and Drug Abuse Patient Records regulations: The Federal rules restrict any use of the information to criminally investigate or prosecute any alcohol or drug abuse patient.[facility] HospitalIn the event this information is protected by the Federal Confidentiality of Alcohol and Drug Abuse Patient Records regulations: The Federal rules restrict any use of the information to criminally investigate or prosecute any alcohol or drug abuse patient.[facility] HospitalIn the event this information is protected by the Federal Confidentiality of Alcohol and Drug Abuse Patient Records regulations: The Federal rules restrict any use of the information to criminally investigate or prosecute any alcohol or drug abuse patient.[facility] HospitalIn the event this information is protected by the Federal Confidentiality of Alcohol and Drug Abuse Patient Records regulations: The Federal rules restrict any use of the information to criminally investigate or prosecute any alcohol or drug abuse patient.[facility] HospitalIn the event this information is protected by the Federal Confidentiality of Alcohol and Drug Abuse Patient Records regulations: The Federal rules restrict any use of the information to criminally investigate or prosecute any alcohol or drug abuse patient.[facility] HospitalIn the event this information is protected by the Federal Confidentiality of Alcohol and Drug Abuse Patient Records regulations: The Federal rules restrict any use of the information to criminally investigate or prosecute any alcohol or drug abuse patient.[facility] HospitalIn the event this information is protected by the Federal Confidentiality of Alcohol and Drug Abuse Patient Records regulations: The Federal rules restrict any use of the information to criminally investigate or prosecute any alcohol or drug abuse patient.[facility] HospitalIn the event this information is protected by the Federal Confidentiality of Alcohol and Drug Abuse Patient Records regulations: The Federal rules restrict any use of the information to criminally investigate or prosecute any alcohol or drug abuse patient.[facility] HospitalIn the event this information is protected by the Federal Confidentiality of Alcohol and Drug Abuse Patient Records regulations: The Federal rules restrict any use of the information to criminally investigate or prosecute any alcohol or drug abuse patient.[facility] HospitalIn the event this information is protected by the Federal Confidentiality of Alcohol and Drug Abuse Patient Records regulations: The Federal rules restrict any use of the information to criminally investigate or prosecute any alcohol or drug abuse patient.[facility] HospitalIn the event this information is protected by the Federal Confidentiality of Alcohol and Drug Abuse Patient Records regulations: The Federal rules restrict any use of the information to criminally investigate or prosecute any alcohol or drug abuse patient.[facility] HospitalIn the event this information is protected by the Federal Confidentiality of Alcohol and Drug Abuse Patient Records regulations: The Federal rules restrict any use of the information to criminally investigate or prosecute any alcohol or drug abuse patient.[facility] HospitalIn the event this information is protected by the Federal Confidentiality of Alcohol and Drug Abuse Patient Records regulations: The Federal rules restrict any use of the information to criminally investigate or prosecute any alcohol or drug abuse patient.[facility] HospitalIn the event this information is protected by the Federal Confidentiality of Alcohol and Drug Abuse Patient Records regulations: The Federal rules restrict any use of the information to criminally investigate or prosecute any alcohol or drug abuse patient.[facility] HospitalIn the event this information is protected by the Federal Confidentiality of Alcohol and Drug Abuse Patient Records regulations: The Federal rules restrict any use of the information to criminally investigate or prosecute any alcohol or drug abuse patient.[facility] HospitalIn the event this information is protected by the Federal Confidentiality of Alcohol and Drug Abuse Patient Records regulations: The Federal rules restrict any use of the information to criminally investigate or prosecute any alcohol or drug abuse patient.[facility] HospitalIn the event this information is protected by the Federal Confidentiality of Alcohol and Drug Abuse Patient Records regulations: The Federal rules restrict any use of the information to criminally investigate or prosecute any alcohol or drug abuse patient.[facility] HospitalIn the event this information is protected by the Federal Confidentiality of Alcohol and Drug Abuse Patient Records regulations: The Federal rules restrict any use of the information to criminally investigate or prosecute any alcohol or drug abuse patient.[facility] HospitalIn the event this information is protected by the Federal Confidentiality of Alcohol and Drug Abuse Patient Records regulations: The Federal rules restrict any use of the information to criminally investigate or prosecute any alcohol or drug abuse patient.[facility] the event this information is protected by the Federal Confidentiality of Alcohol and Drug Abuse Patient Records regulations: The Federal rules restrict any use of the information to criminally investigate or prosecute any alcohol or drug abuse patient.[facility] HospitalIn the event this information is protected by the Federal Confidentiality of Alcohol and Drug Abuse Patient Records regulations: The Federal rules restrict any use of the information to criminally investigate or prosecute any alcohol or drug abuse patient.[facility] HospitalIn the event this information is protected by the Federal Confidentiality of Alcohol and Drug Abuse Patient Records regulations: The Federal rules restrict any use of the information to criminally investigate or prosecute any alcohol or drug abuse patient.[facility] HospitalIn the event this information is protected by the Federal Confidentiality of Alcohol and Drug Abuse Patient Records regulations: The Federal rules restrict any use of the information to criminally investigate or prosecute any alcohol or drug abuse patient.[facility] HospitalIn the event this information is protected by the Federal Confidentiality of Alcohol and Drug Abuse Patient Records regulations: The Federal rules restrict any use of the information to criminally investigate or prosecute any alcohol or drug abuse patient.[facility] HospitalIn the event this information is protected by the Federal Confidentiality of Alcohol and Drug Abuse Patient Records regulations: The Federal rules restrict any use of the information to criminally investigate or prosecute any alcohol or drug abuse patient.[facility] HospitalIn the event this information is protected by the Federal Confidentiality of Alcohol and Drug Abuse Patient Records regulations: The Federal rules restrict any use of the information to criminally investigate or prosecute any alcohol or drug abuse patient.[facility] HospitalIn the event this information is protected by the Federal Confidentiality of Alcohol and Drug Abuse Patient Records regulations: The Federal rules restrict any use of the information to criminally investigate or prosecute any alcohol or drug abuse patient.[facility] HospitalIn the event this information is protected by the Federal Confidentiality of Alcohol and Drug Abuse Patient Records regulations: The Federal rules restrict any use of the information to criminally investigate or prosecute any alcohol or drug abuse patient.[facility] HospitalIn the event this information is protected by the Federal Confidentiality of Alcohol and Drug Abuse Patient Records regulations: The Federal rules restrict any use of the information to criminally investigate or prosecute any alcohol or drug abuse patient.[facility] HospitalIn the event this information is protected by the Federal Confidentiality of Alcohol and Drug Abuse Patient Records regulations: The Federal rules restrict any use of the information to criminally investigate or prosecute any alcohol or drug abuse patient.[facility] HospitalIn the event this information is protected by the Federal Confidentiality of Alcohol and Drug Abuse Patient Records regulations: The Federal rules restrict any use of the information to criminally investigate or prosecute any alcohol or drug abuse patient.[facility] HospitalIn the event this information is protected by the Federal Confidentiality of Alcohol and Drug Abuse Patient Records regulations: The Federal rules restrict any use of the information to criminally investigate or prosecute any alcohol or drug abuse patient.[facility] HospitalIn the event this information is protected by the Federal Confidentiality of Alcohol and Drug Abuse Patient Records regulations: The Federal rules restrict any use of the information to criminally investigate or prosecute any alcohol or drug abuse patient.[facility] HospitalIn the event this information is protected by the Federal Confidentiality of Alcohol and Drug Abuse Patient Records regulations: The Federal rules restrict any use of the information to criminally investigate or prosecute any alcohol or drug abuse patient.[facility] HospitalIn the event this information is protected by the Federal Confidentiality of Alcohol and Drug Abuse Patient Records regulations: The Federal rules restrict any use of the information to criminally investigate or prosecute any alcohol or drug abuse patient.[facility] HospitalIn the event this information is protected by the Federal Confidentiality of Alcohol and Drug Abuse Patient Records regulations: The Federal rules restrict any use of the information to criminally investigate or prosecute any alcohol or drug abuse patient.[facility] HospitalIn the event this information is protected by the Federal Confidentiality of Alcohol and Drug Abuse Patient Records regulations: The Federal rules restrict any use of the information to criminally investigate or prosecute any alcohol or drug abuse patient.[facility] HospitalIn the event this information is protected by the Federal Confidentiality of Alcohol and Drug Abuse Patient Records regulations: The Federal rules restrict any use of the information to criminally investigate or prosecute any alcohol or drug abuse patient.[facility] HospitalIn the event this information is protected by the Federal Confidentiality of Alcohol and Drug Abuse Patient Records regulations: The Federal rules restrict any use of the information to criminally investigate or prosecute any alcohol or drug abuse patient.[facility] HospitalIn the event this information is protected by the Federal Confidentiality of Alcohol and Drug Abuse Patient Records regulations: The Federal rules restrict any use of the information to criminally investigate or prosecute any alcohol or drug abuse patient.[facility] HospitalIn the event this information is protected by the Federal Confidentiality of Alcohol and Drug Abuse Patient Records regulations: The Federal rules restrict any use of the information to criminally investigate or prosecute any alcohol or drug abuse patient.[facility] HospitalIn the event this information is protected by the Federal Confidentiality of Alcohol and Drug Abuse Patient Records regulations: The Federal rules restrict any use of the information to criminally investigate or prosecute any alcohol or drug abuse patient.[facility] HospitalIn the event this information is protected by the Federal Confidentiality of Alcohol and Drug Abuse Patient Records regulations: The Federal rules restrict any use of the information to criminally investigate or prosecute any alcohol or drug abuse patient.[facility] HospitalIn the event this information is protected by the Federal Confidentiality of Alcohol and Drug Abuse Patient Records regulations: The Federal rules restrict any use of the information to criminally investigate or prosecute any alcohol or drug abuse patient.[facility] HospitalIn the event this information is protected by the Federal Confidentiality of Alcohol and Drug Abuse Patient Records regulations: The Federal rules restrict any use of the information to criminally investigate or prosecute any alcohol or drug abuse patient.[facility] HospitalIn the event this information is protected by the Federal Confidentiality of Alcohol and Drug Abuse Patient Records regulations: The Federal rules restrict any use of the information to criminally investigate or prosecute any alcohol or drug abuse patient.[facility] HospitalIn the event this information is protected by the Federal Confidentiality of Alcohol and Drug Abuse Patient Records regulations: The Federal rules restrict any use of the information to criminally investigate or prosecute any alcohol or drug abuse patient.[facility] HospitalIn the event this information is protected by the Federal Confidentiality of Alcohol and Drug Abuse Patient Records regulations: The Federal rules restrict any use of the information to criminally investigate or prosecute any alcohol or drug abuse patient.[facility] HospitalIn the event this information is protected by the Federal Confidentiality of Alcohol and Drug Abuse Patient Records regulations: The Federal rules restrict any use of the information to criminally investigate or prosecute any alcohol or drug abuse patient.[facility] HospitalIn the event this information is protected by the Federal Confidentiality of Alcohol and Drug Abuse Patient Records regulations: The Federal rules restrict any use of the information to criminally investigate or prosecute any alcohol or drug abuse patient.[facility] HospitalIn the event this information is protected by the Federal Confidentiality of Alcohol and Drug Abuse Patient Records regulations: The Federal rules restrict any use of the information to criminally investigate or prosecute any alcohol or drug abuse patient.[facility] HospitalIn the event this information is protected by the Federal Confidentiality of Alcohol and Drug Abuse Patient Records regulations: The Federal rules restrict any use of the information to criminally investigate or prosecute any alcohol or drug abuse patient.[facility] HospitalIn the event this information is protected by the Federal Confidentiality of Alcohol and Drug Abuse Patient Records regulations: The Federal rules restrict any use of the information to criminally investigate or prosecute any alcohol or drug abuse patient.[facility] HospitalIn the event this information is protected by the Federal Confidentiality of Alcohol and Drug Abuse Patient Records regulations: The Federal rules restrict any use of the information to criminally investigate or prosecute any alcohol or drug abuse patient.[facility] HospitalIn the event this information is protected by the Federal Confidentiality of Alcohol and Drug Abuse Patient Records regulations: The Federal rules restrict any use of the information to criminally investigate or prosecute any alcohol or drug abuse patient.[facility] HospitalIn the event this information is protected by the Federal Confidentiality of Alcohol and Drug Abuse Patient Records regulations: The Federal rules restrict any use of the information to criminally investigate or prosecute any alcohol or drug abuse patient.[facility] HospitalIn the event this information is protected by the Federal Confidentiality of Alcohol and Drug Abuse Patient Records regulations: The Federal rules restrict any use of the information to criminally investigate or prosecute any alcohol or drug abuse patient.[facility] HospitalIn the event this information is protected by the Federal Confidentiality of Alcohol and Drug Abuse Patient Records regulations: The Federal rules restrict any use of the information to criminally investigate or prosecute any alcohol or drug abuse patient.[facility] HospitalIn the event this information is protected by the Federal Confidentiality of Alcohol and Drug Abuse Patient Records regulations: The Federal rules restrict any use of the information to criminally investigate or prosecute any alcohol or drug abuse patient.[facility] HospitalIn the event this information is protected by the Federal Confidentiality of Alcohol and Drug Abuse Patient Records regulations: The Federal rules restrict any use of the information to criminally investigate or prosecute any alcohol or drug abuse patient.[facility] HospitalIn the event this information is protected by the Federal Confidentiality of Alcohol and Drug Abuse Patient Records regulations: The Federal rules restrict any use of the information to criminally investigate or prosecute any alcohol or drug abuse patient.[facility] HospitalIn the event this information is protected by the Federal Confidentiality of Alcohol and Drug Abuse Patient Records regulations: The Federal rules restrict any use of the information to criminally investigate or prosecute any alcohol or drug abuse patient.[facility] HospitalIn the event this information is protected by the Federal Confidentiality of Alcohol and Drug Abuse Patient Records regulations: The Federal rules restrict any use of the information to criminally investigate or prosecute any alcohol or drug abuse patient.[facility] HospitalIn the event this information is protected by the Federal Confidentiality of Alcohol and Drug Abuse Patient Records regulations: The Federal rules restrict any use of the information to criminally investigate or prosecute any alcohol or drug abuse patient.[facility] HospitalIn the event this information is protected by the Federal Confidentiality of Alcohol and Drug Abuse Patient Records regulations: The Federal rules restrict any use of the information to criminally investigate or prosecute any alcohol or drug abuse patient.[facility] HospitalIn the event this information is protected by the Federal Confidentiality of Alcohol and Drug Abuse Patient Records regulations: The Federal rules restrict any use of the information to criminally investigate or prosecute any alcohol or drug abuse patient.[facility] HospitalIn the event this information is protected by the Federal Confidentiality of Alcohol and Drug Abuse Patient Records regulations: The Federal rules restrict any use of the information to criminally investigate or prosecute any alcohol or drug abuse patient.[facility] HospitalIn the event this information is protected by the Federal Confidentiality of Alcohol and Drug Abuse Patient Records regulations: The Federal rules restrict any use of the information to criminally investigate or prosecute any alcohol or drug abuse patient.[facility] HospitalIn the event this information is protected by the Federal Confidentiality of Alcohol and Drug Abuse Patient Records regulations: The Federal rules restrict any use of the information to criminally investigate or prosecute any alcohol or drug abuse patient.[facility]In the event this information is protected by the Federal Confidentiality of Alcohol and Drug Abuse Patient Records regulations: The Federal rules restrict any use of the information to criminally investigate or prosecute any alcohol or drug abuse patient.[facility] HospitalIn the event this information is protected by the Federal Confidentiality of Alcohol and Drug Abuse Patient Records regulations: The Federal rules restrict any use of the information to criminally investigate or prosecute any alcohol or drug abuse patient.[facility] HospitalIn the event this information is protected by the Federal Confidentiality of Alcohol and Drug Abuse Patient Records regulations: The Federal rules restrict any use of the information to criminally investigate or prosecute any alcohol or drug abuse patient.[facility] HospitalIn the event this information is protected by the Federal Confidentiality of Alcohol and Drug Abuse Patient Records regulations: The Federal rules restrict any use of the information to criminally investigate or prosecute any alcohol or drug abuse patient.[facility] HospitalIn the event this information is protected by the Federal Confidentiality of Alcohol and Drug Abuse Patient Records regulations: The Federal rules restrict any use of the information to criminally investigate or prosecute any alcohol or drug abuse patient.[facility] HospitalIn the event this information is protected by the Federal Confidentiality of Alcohol and Drug Abuse Patient Records regulations: The Federal rules restrict any use of the information to criminally investigate or prosecute any alcohol or drug abuse patient.[facility] HospitalIn the event this information is protected by the Federal Confidentiality of Alcohol and Drug Abuse Patient Records regulations: The Federal rules restrict any use of the information to criminally investigate or prosecute any alcohol or drug abuse patient.[facility] HospitalIn the event this information is protected by the Federal Confidentiality of Alcohol and Drug Abuse Patient Records regulations: The Federal rules restrict any use of the information to criminally investigate or prosecute any alcohol or drug abuse patient.[facility] HospitalIn the event this information is protected by the Federal Confidentiality of Alcohol and Drug Abuse Patient Records regulations: The Federal rules restrict any use of the information to criminally investigate or prosecute any alcohol or drug abuse patient.[facility] HospitalIn the event this information is protected by the Federal Confidentiality of Alcohol and Drug Abuse Patient Records regulations: The Federal rules restrict any use of the information to criminally investigate or prosecute any alcohol or drug abuse patient.[facility] HospitalIn the event this information is protected by the Federal Confidentiality of Alcohol and Drug Abuse Patient Records regulations: The Federal rules restrict any use of the information to criminally investigate or prosecute any alcohol or drug abuse patient.[facility] HospitalIn the event this information is protected by the Federal Confidentiality of Alcohol and Drug Abuse Patient Records regulations: The Federal rules restrict any use of the information to criminally investigate or prosecute any alcohol or drug abuse patient.[facility] HospitalIn the event this information is protected by the Federal Confidentiality of Alcohol and Drug Abuse Patient Records regulations: The Federal rules restrict any use of the information to criminally investigate or prosecute any alcohol or drug abuse patient.[facility] HospitalIn the event this information is protected by the Federal Confidentiality of Alcohol and Drug Abuse Patient Records regulations: The Federal rules restrict any use of the information to criminally investigate or prosecute any alcohol or drug abuse patient.[facility] HospitalIn the event this information is protected by the Federal Confidentiality of Alcohol and Drug Abuse Patient Records regulations: The Federal rules restrict any use of the information to criminally investigate or prosecute any alcohol or drug abuse patient.[facility] HospitalIn the event this information is protected by the Federal Confidentiality of Alcohol and Drug Abuse Patient Records regulations: The Federal rules restrict any use of the information to criminally investigate or prosecute any alcohol or drug abuse patient.[facility] HospitalIn the event this information is protected by the Federal Confidentiality of Alcohol and Drug Abuse Patient Records regulations: The Federal rules restrict any use of the information to criminally investigate or prosecute any alcohol or drug abuse patient.[facility] HospitalIn the event this information is protected by the Federal Confidentiality of Alcohol and Drug Abuse Patient Records regulations: The Federal rules restrict any use of the information to criminally investigate or prosecute any alcohol or drug abuse patient.[facility] HospitalIn the event this information is protected by the Federal Confidentiality of Alcohol and Drug Abuse Patient Records regulations: The Federal rules restrict any use of the information to criminally investigate or prosecute any alcohol or drug abuse patient.[facility] HospitalIn the event this information is protected by the Federal Confidentiality of Alcohol and Drug Abuse Patient Records regulations: The Federal rules restrict any use of the information to criminally investigate or prosecute any alcohol or drug abuse patient.[facility] HospitalIn the event this information is protected by the Federal Confidentiality of Alcohol and Drug Abuse Patient Records regulations: The Federal rules restrict any use of the information to criminally investigate or prosecute any alcohol or drug abuse patient.[facility] HospitalIn the event this information is protected by the Federal Confidentiality of Alcohol and Drug Abuse Patient Records regulations: The Federal rules restrict any use of the information to criminally investigate or prosecute any alcohol or drug abuse patient.[facility] HospitalIn the event this information is protected by the Federal Confidentiality of Alcohol and Drug Abuse Patient Records regulations: The Federal rules restrict any use of the information to criminally investigate or prosecute any alcohol or drug abuse patient.[facility] HospitalIn the event this information is protected by the Federal Confidentiality of Alcohol and Drug Abuse Patient Records regulations: The Federal rules restrict any use of the information to criminally investigate or prosecute any alcohol or drug abuse patient.[facility] HospitalIn the event this information is protected by the Federal Confidentiality of Alcohol and Drug Abuse Patient Records regulations: The Federal rules restrict any use of the information to criminally investigate or prosecute any alcohol or drug abuse patient.[facility] HospitalIn the event this information is protected by the Federal Confidentiality of Alcohol and Drug Abuse Patient Records regulations: The Federal rules restrict any use of the information to criminally investigate or prosecute any alcohol or drug abuse patient.[facility] HospitalIn the event this information is protected by the Federal Confidentiality of Alcohol and Drug Abuse Patient Records regulations: The Federal rules restrict any use of the information to criminally investigate or prosecute any alcohol or drug abuse patient.[facility] HospitalIn the event this information is protected by the Federal Confidentiality of Alcohol and Drug Abuse Patient Records regulations: The Federal rules restrict any use of the information to criminally investigate or prosecute any alcohol or drug abuse patient.[facility] HospitalIn the event this information is protected by the Federal Confidentiality of Alcohol and Drug Abuse Patient Records regulations: The Federal rules restrict any use of the information to criminally investigate or prosecute any alcohol or drug abuse patient.[facility] HospitalIn the event this information is protected by the Federal Confidentiality of Alcohol and Drug Abuse Patient Records regulations: The Federal rules restrict any use of the information to criminally investigate or prosecute any alcohol or drug abuse patient.[facility] HospitalIn the event this information is protected by the Federal Confidentiality of Alcohol and Drug Abuse Patient Records regulations: The Federal rules restrict any use of the information to criminally investigate or prosecute any alcohol or drug abuse patient.[facility] HospitalIn the event this information is protected by the Federal Confidentiality of Alcohol and Drug Abuse Patient Records regulations: The Federal rules restrict any use of the information to criminally investigate or prosecute any alcohol or drug abuse patient.[facility] HospitalIn the event this information is protected by the Federal Confidentiality of Alcohol and Drug Abuse Patient Records regulations: The Federal rules restrict any use of the information to criminally investigate or prosecute any alcohol or drug abuse patient.[facility] HospitalIn the event this information is protected by the Federal Confidentiality of Alcohol and Drug Abuse Patient Records regulations: The Federal rules restrict any use of the information to criminally investigate or prosecute any alcohol or drug abuse patient.[facility] HospitalIn the event this information is protected by the Federal Confidentiality of Alcohol and Drug Abuse Patient Records regulations: The Federal rules restrict any use of the information to criminally investigate or prosecute any alcohol or drug abuse patient.[facility] HospitalIn the event this information is protected by the Federal Confidentiality of Alcohol and Drug Abuse Patient Records regulations: The Federal rules restrict any use of the information to criminally investigate or prosecute any alcohol or drug abuse patient.[facility] HospitalIn the event this information is protected by the Federal Confidentiality of Alcohol and Drug Abuse Patient Records regulations: The Federal rules restrict any use of the information to criminally investigate or prosecute any alcohol or drug abuse patient.[facility] HospitalIn the event this information is protected by the Federal Confidentiality of Alcohol and Drug Abuse Patient Records regulations: The Federal rules restrict any use of the information to criminally investigate or prosecute any alcohol or drug abuse patient.[facility] HospitalIn the event this information is protected by the Federal Confidentiality of Alcohol and Drug Abuse Patient Records regulations: The Federal rules restrict any use of the information to criminally investigate or prosecute any alcohol or drug abuse patient.[facility] HospitalIn the event this information is protected by the Federal Confidentiality of Alcohol and Drug Abuse Patient Records regulations: The Federal rules restrict any use of the information to criminally investigate or prosecute any alcohol or drug abuse patient.[facility] HospitalIn the event this information is protected by the Federal Confidentiality of Alcohol and Drug Abuse Patient Records regulations: The Federal rules restrict any use of the information to criminally investigate or prosecute any alcohol or drug abuse patient.[facility] HospitalIn the event this information is protected by the Federal Confidentiality of Alcohol and Drug Abuse Patient Records regulations: The Federal rules restrict any use of the information to criminally investigate or prosecute any alcohol or drug abuse patient.[facility] HospitalIn the event this information is protected by the Federal Confidentiality of Alcohol and Drug Abuse Patient Records regulations: The Federal rules restrict any use of the information to criminally investigate or prosecute any alcohol or drug abuse patient.[facility] HospitalIn the event this information is protected by the Federal Confidentiality of Alcohol and Drug Abuse Patient Records regulations: The Federal rules restrict any use of the information to criminally investigate or prosecute any alcohol or drug abuse patient.[facility] HospitalIn the event this information is protected by the Federal Confidentiality of Alcohol and Drug Abuse Patient Records regulations: The Federal rules restrict any use of the information to criminally investigate or prosecute any alcohol or drug abuse patient.[facility] HospitalIn the event this information is protected by the Federal Confidentiality of Alcohol and Drug Abuse Patient Records regulations: The Federal rules restrict any use of the information to criminally investigate or prosecute any alcohol or drug abuse patient.[facility] HospitalIn the event this information is protected by the Federal Confidentiality of Alcohol and Drug Abuse Patient Records regulations: The Federal rules restrict any use of the information to criminally investigate or prosecute any alcohol or drug abuse patient.[facility] HospitalIn the event this information is protected by the Federal Confidentiality of Alcohol and Drug Abuse Patient Records regulations: The Federal rules restrict any use of the information to criminally investigate or prosecute any alcohol or drug abuse patient.[facility] HospitalIn the event this information is protected by the Federal Confidentiality of Alcohol and Drug Abuse Patient Records regulations: The Federal rules restrict any use of the information to criminally investigate or prosecute any alcohol or drug abuse patient.[facility] HospitalIn the event this information is protected by the Federal Confidentiality of Alcohol and Drug Abuse Patient Records regulations: The Federal rules restrict any use of the information to criminally investigate or prosecute any alcohol or drug abuse patient.[facility] ClinicIn the event this information is protected by the Federal Confidentiality of Alcohol and Drug Abuse Patient Records regulations: The Federal rules restrict any use of the information to criminally investigate or prosecute any alcohol or drug abuse patient.[facility] HospitalIn the event this information is protected by the Federal Confidentiality of Alcohol and Drug Abuse Patient Records regulations: The Federal rules restrict any use of the information to criminally investigate or prosecute any alcohol or drug abuse patient.[facility] Reason for Visit (unrecogniz ed section and [...] Date Comments Refill Request 12/20/2021 Reason Comments [facility] HH OT POC Reason Onset Date Comments [...] follow up Reason Onset Date Comments community monitoring outreach 03/11/2022 in Sight questionnaire follow up Reason Onset Date Comments Population Health Navigation Outreach 03/17/2022 [facility] Reason Comments Social Work Services Reason Onset Date Comments Follow Up Immunizations 03/20/2022 Flu vaccination Reason Comments Patient Question Regarding return of Cologuard Reason Onset Date Comments Community Monitoring Outreach 04/07/2022 in Sight questionnaire follow up Reason Comments Appointment Appointment Reason Onset Date Comments [facility] 05/07/2022 Check in call Reason Comments Refill Request Reason Onset Date Comments CD 06/06/2022 Check in call Reason Onset Date Comments cdm 06/10/2022 Check in call Reason Onset Date Comments Population Health Navigation Outreach 06/13/2022 hcc Reason Comments Established Patient Specialty Diagnoses / Procedures Referred By Cyrus castillo Referred To Contact Pulmonary and Critical Care Medicine Diagnoses Centrilobular emphysema (HCC) Procedures CONSULT TO PULM/CRITICAL CARE OFFICE/OUTPATIENT [facility] MDM 60-74 MINUTES Jalyn Smith MD [address] [place] [address] Referral ID Status Reason Start Date Expiration Date V isits Requested Visits Authorized [id number] Closed PCP Requested Referral 03/20/2022 03/20/2023 1 1 Reason Onset Date Comments Refill Request 06/26/2022 Reason Onset Date Comments Refill Request 06/30/2022 Reason Onset Date Comments Refill Request 07/02/2022 Reason Onset Date Comments CDM 07/08/2022 Check in call Reason Comments Orders Reason Comments Wound Check Right lower leg new wound. Also old wound on back on left leg is seeping again. Reason Onset Date Comments Refill Request 07/21/2022 Reason Onset Date Comments CDM 08/06/2022 Check in call Reason Onset Date Comments cdm 09/11/2022 Check in call Reason Comments Information Reason Comments Follow Up Reason Onset Date Comments Refill Request 10/15/2022 Reason Onset Date Comments CDM 10/14/2022 Check in call Reason Onset Date Comments [facility] monitoring 11/13/2022 CD telepho joshua Reason Comments Weakness Would like referral for home health and therapy Reason Onset Date Comments [facility] monitoring 12/15/2022 CD telepho joshua Reason Comments [facility] OT POC update Reason Onset Date Comments Refill Request 01/08/2023 Reason Comments Hospital F/U Reason Onset Date Comments [facility] monitoring 01/12/2023 CD telepho joshua Reason Comments Results Reason Comments Pain Management Referral Reason Comments COPD Reason Comments Patient Update Orders Reason Comments Forms Reason Onset Date Comments community monitoring 02/10/2023 CDM telepho joshua Reason Onset Date Comments [facility] monitoring 03/27/2023 CD telepho joshua Reason Onset Date Comments Refill Request 03/27/[address] Specialty Diagnoses / Procedures Referred By Contac t Referred To Contact CT IMAGING Diagnoses 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, abdominal (HCC) Procedures CTA ABD/PEL W IVCON CT ANGIO ABD&PLVIS CNTRST MTRL W/WO CNTRST IMHerminia Delcid, CHEST PAINTING AND SEALING SUPERVISOR.CORROSION CONTROL ENGINEER [address] [place] [address] [place] [address] Referral ID Status Reason Start Date Expiration Date V isits Requested Visits Authorized [id number] Closed Auto-Generat ed Referral Patient Cleared - Admin/Chairm an/Director advise to proceed or did not respond 04/18/2022 05/18/2022 1 1 Specialty Diagnoses / Procedures [facility] To Contact CT IM[facility]ING Diagnoses 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, abdominal (HCC) Procedures CTA CHEST (NONGATED) W IVCON CT ANGIOGRAPHY CHEST W/CONTRAST/NONCONTRAST Herminia Carrera, CHEST PAINTING AND SEALING SUPERVISOR.CORROSION CONTROL ENGINEER [address] [place] [address] [place] [address] Referral ID Status Reason Start Date Expiration Date V isits Requested Visits Authorized [id number] Closed Auto-Generat ed Referral Patient Cleared - [...] [employer] Zackery Mckeon MD [address] [place] [address] [facility] [place] [address] [place] [id number] Referral ID Status Reason Start Date Expiration Date V isits Requested Visits Authorized [id number] Closed Auto-Generate d Referral 09/10/2023 10/09/2024 1 1 Reason Onset Date Comments Refill Request 10/02/2023 Specialty Diagnoses / Procedures Referred By Contac t Referred To Contact CT IMAGING Diagnoses Abdominal aortic aneurysm (AAA) without rupture, unspecified part (HCC) Dissection of thoracoabdominal aorta (HCC) Procedures CTA ABD/PEL W IVCON CT ANGIO ABD&PLVIS CNTRST MTRL W/WO CNTRST Yaniv Carvajal MD [address] [place] [address] [place] [address] Referral ID Status Reason Start Date Expiration Date V isits Requested Visits Authorized [id number] Closed Auto-Generate d Referral 10/14/2023 11/13/2023 1 [...] Health Navigation Outreach 08/25/2024 [employer] Nila Reason Comments Patient Question Reason Comments 6 Month Exam ER F/U Reason Onset Date Comments Refill Request 09/20/2024 Reason Onset Date Comments Refill Request 09/30/2024 Reason Onset Date Comments Refill Request 10/03/2024 Reason Onset Date Comments Travel Coordinator- Other 10/10/2024 Reason Onset Date Comments Population Health Navigation Outreach 11/21/2024 [employer]ila Reason Onset Date Comments Population Health Navigation Outreach 12/21/2024 [employer] Nila Reason Comments Surgical Clearance Reason Onset Date Comments Population Health Navigation Outreach 01/20/2025 [employer] Nila Care Teams (unrecognized sec tion and content) Lead Loader Relationship Specialty Start Date End Date Jalyn Smith MD [address] [facility] [place] [address] PCP - General Family Practice 01/28/13 Brady Avila MD [address] [place] [address] Pulmonary and Critical Care Medicine 11/01/20 Lead Loader Relationship Specialty Start Date End Date Jalyn Smith MD [address] [facility] [place] [address] PCP - General Family Practice 01/28/13 Brady Avila MD [address] [place] [address] Pulmonary and Critical Care Medicine 11/01/20 Lead Loader Relationship Specialty Start Date End Date Jalyn Smith MD [address] [facility] [place] [address] PCP - General Family Practice 01/28/13 Brady Avila MD [address] [place] [address] Pulmonary and Critical Care Medicine 11/01/20 Lead Loader Relationship Specialty Start Date End Date Jalyn Smith MD [address] [facility] [place] [address] PCP - General Family Practice 01/28/13 Brady Avila MD [address] [place] [address] Pulmonary and Critical Care Medicine 11/01/20 Lead Loader Relationship Specialty Start Date End Date Jalyn Smith MD [address] [facility] [place] [address] PCP - General Family Practice 01/28/13 Brady Avila MD [address] [place] [address] Pulmonary and Critical Care Medicine 11/01/20 Lead Loader Relationship Specialty Start Date End Date Jalyn Smith MD [address] [facility] [place] [address] PCP - General Family Practice 01/28/13 Brady Avila MD [address] [place] [address] Pulmonary and Critical Care Medicine 11/01/20 Lead Loader Relationship Specialty Start Date End Date Jalyn Smith MD [address] [place] [address] PCP - General Family Practice 01/28/13 Brady Avila MD [address] [place] [address] Pulmonary and Critical Care Medicine 11/01/20 Lead Loader Relationship Specialty Start Date End Date Jalyn Smith MD [address] [facility] [place] [address] PCP - General Family Practice 01/28/13 Brady Avila MD [address] [place] [address] Pulmonary and Critical Care Medicine 11/01/20 Lead Loader Relationship Specialty Start Date End Date Jalyn Smith MD [address] [facility] [place] [address] PCP - General Family Practice 01/28/13 Brady Avila MD [address] [place] [address] Pulmonary and Critical Care Medicine 11/01/20 Lead Loader Relationship Specialty Start Date End Date Jalyn Smith MD [address] [facility] [place] [address] PCP - General Family Practice 01/28/13 Brady Avila MD [address] [place] [address] Pulmonary and Critical Care Medicine 11/01/20 Lead Loader Relationship Specialty Start Date End Date Jalyn Smith MD [address] [facility] [place] [address] PCP - General Family Practice 01/28/13 Brady Avila MD [address] [place] [address] Pulmonary and Critical Care Medicine 11/01/20 Lead Loader Relationship Specialty Start Date End Date Jalyn Smith MD [address] [facility] [place] [address] PCP - General Family Practice 01/28/13 Brady Avila MD [address] [facility] [place] [place] [address] Pulmonary and Critical Care Medicine 11/01/20 Lead Loader Relationship Specialty Start Date End Date Jalyn Smith MD [address] [facility] [place] [address] PCP - General Family Practice 01/28/13 Brady Avila MD [address] [place] [address] Pulmonary and Critical Care Medicine 11/01/20October, Darlene Islas RN [address] [place] [address] Travel Coordinator Unspecified 02/19/22 Lead Loader Relationship Specialty Start Date End Date Jalyn Smith MD [address] [facility] [place] [address] PCP - General Family Medicine 01/28/13 Brady Avila MD [address] [place] [address] Pulmonary and Critical Care Medicine 11/01/20 Darlene Urbano RN [address] [place], [place] [id number] Travel Coordinator Unspecified 02/19/22 Lead Loader Relationship Specialty Start Date End Date Jalyn Smith MD [address] [facility] [place] [address] PCP - General Family Medicine 01/28/13 Brady Avila MD [address] [place] [address] Pulmonary and Critical Care Medicine 5/27/21 Darlene Urbano, RN [address] [facility] [place] [address] Travel Coordinator Unspecified 02/19/22 Lead Loader Relationship Specialty Start Date End Date Jalyn Smith MD [address] [facility] [place] [address] PCP - General Family Medicine 01/28/13 Brady Avila MD [address] [place] [place] [address] Pulmonary and Critical Care Medicine 11/01/20October, Darlene Islas RN [address] [place] [address] Travel Coordinator Unspecified 02/19/22 Lead Loader Relationship Specialty Start Date End Date Jalyn Smith MD [address] [facility] [place] [address] PCP - General Family Medicine 01/28/13 Brady Avila MD [address] [place] [address] Pulmonary and Critical Care Medicine 11/01/20October, Darlene Islas RN [address] [facility] [place] [address] Travel Coordinator Unspecified 02/19/22 Lead Loader Relationship Specialty Start Date End Date Jalyn Smith MD [address] [facility] [place] [address] PCP - General Family Medicine 01/28/13 Brady Avila MD [address] [place] [place] [address] Pulmonary and Critical Care Medicine 11/01/20October, Darlene Islas RN [address] [facility] [place] [address] Travel Coordinator Unspecified 02/19/22 Lead Loader Relationship Specialty Start Date End Date Jalyn Smith MD [address] [facility] [address] PCP - General Family Medicine 01/28/13 Brady Avila MD [address] [facility] [place] [address] Pulmonary and Critical Care Medicine 11/01/20October, Darlene Islas RN [address] [facility] [place] [address] Travel Coordinator Unspecified 02/19/22 Lead Loader Relationship Specialty Start Date End Date Jalyn Smith MD [address] [facility] [address] PCP - General Family Medicine 01/28/13 Brady Avila MD [address] [place] [place] [address] Pulmonary and Critical Care Medicine 11/01/20October, Darlene Islas RN [address] [place] [address] Travel Coordinator Unspecified 02/19/22 Lead Loader Relationship Specialty Start Date End Date Jalyn Smith MD [address] [facility] [address] PCP - General Family Medicine 01/28/13 Brady Avila MD [address] [place] [address] Pulmonary and Critical Care Medicine 11/01/20October, Darlene Islas RN [address] [facility] [place] [address] Travel Coordinator Unspecified 02/19/22 Lead Loader Relationship Specialty Start Date End Date Jalyn Smith MD [address] [facility] [address] PCP - General Family Medicine 01/28/13 Brady Avila MD [address] [place] [address] Pulmonary and Critical Care Medicine 11/01/20October, Darlene Islas RN [address] [place] [address] Travel Coordinator Unspecified 02/19/22 Lead Loader Relationship Specialty Start Date End Date Jalyn Smith MD [address] [facility] [address] PCP - General Family Medicine 01/28/13 Brady Avila MD [address] [place] [place] [address] Pulmonary and Critical Care Medicine 11/01/20October, Darlene Islas RN [address] [place] [address] Travel Coordinator Unspecified 02/19/22 Lead Loader Relationship Specialty Start Date End Date Jalyn Smith MD [address] [facility] [address] PCP - General Family Medicine 01/28/13 Brady Avila MD [address] [place] [address] Pulmonary and Critical Care Medicine 11/01/20October, Darlene Islas RN [address] [facility] [place] [address] Travel Coordinator Unspecified 02/19/22 Lead Loader Relationship Specialty Start Date End Date Jalyn Smith MD [address] [facility] [address] PCP - General Family Medicine 01/28/13 Brady Avila MD [address] [place] [address] Pulmonary and Critical Care Medicine 11/01/20October, Darlene Islas RN [address] [facility] [place] [address] Travel Coordinator Unspecified 02/19/22 Lead Loader Relationship Specialty Start Date End Date Jalyn Smith MD [address] [facility] [address] PCP - General Family Medicine 01/28/13 Brady Avila MD [address] [place] [address] Pulmonary and Critical Care Medicine 11/01/20October, Darlene Islas RN [address] [facility] [place] [address] Travel Coordinator Unspecified 02/19/22 Lead Loader Relationship Specialty Start Date End Date Jalyn Smith MD [address] [facility] [address] PCP - General Family Medicine 01/28/13 Brady Avila MD [address] [facility] [place] [address] Pulmonary and Critical Care Medicine 11/01/20October, Darlene Islas RN [address] [place] [address] Travel Coordinator Unspecified 02/19/22 Lead Loader Relationship Specialty Start Date End Date Jalyn Smith MD [address] [facility] [address] PCP - General Family Medicine 01/28/13 Brady Avila MD [address] [place] [address] Pulmonary and Critical Care Medicine 11/01/20October, Darlene Islas RN [address] [place] [address] Travel Coordinator Unspecified 02/19/22 Lead Loader Relationship Specialty Start Date End Date Jalyn Smith MD [address] [facility] [address] PCP - General Family Medicine 01/28/13 Brady Avila MD [address] [place] [address] Pulmonary and Critical Care Medicine 11/01/20October, Darlene Islas RN [address] [place] [address] Travel Coordinator Unspecified 02/19/22 Lead Loader Relationship Specialty Start Date End Date Jalyn Smith MD [address] [facility] [address] PCP - General Family Medicine 01/28/13 Brady Avila MD [address] [facility] [place] [address] Pulmonary and Critical Care Medicine 11/01/20October, Darlene Islas RN [address] [place], [place] [address] Travel Coordinator Unspecified 02/19/22 Team Status: Active Member Role Status Dates Dr. Jalyn Smith MD Family Provider Active Dr. Jalyn Smith MD Primary Care Provider Active Team Status: Inactive Member Role Status Dates Dr. Jalyn Smith MD Primary Care Provider Active Dr. Nisha Magallon , Attending Provider Active Lead Loader Relationship Specialty Start Date End Date Jalyn Smith MD [address] [facility] [address] PCP - General Family Medicine 01/28/13 Brady Avila MD [address] [place] [place] [address] Pulmonary and Critical Care Medicine 11/01/20October, Darlene Islas RN [address] [place] [address] Travel Coordinator Unspecified 02/19/22 Lead Loader Relationship Specialty Start Date End Date Jalyn Smith MD [address] [facility] [address] PCP - General Family Medicine 01/28/13 Brady Avila MD [address] [facility], [place] [address] Pulmonary and Critical Care Medicine 11/01/20October, Darlene Islas RN [address] [facility] [place] [address] Travel Coordinator Unspecified 02/19/22 Team Status: Inactive Member Role Status Dates Dr. Jalyn Smith MD Primary Care Provider Active Dr. Nisha Magallon DO Attending Provider, Referring Prov ider Active Lead Loader Relationship Specialty Start Date End Date Jalyn Smith MD [address] [facility] [address] PCP - General Family Medicine 01/28/13 Brady Avila MD [address] [facility] [place] [address] Pulmonary and Critical Care Medicine 11/01/20 Darlene Urbano RN [address] [facility] [place] [address] Travel Coordinator Unspecified 02/19/22 Lead Loader Relationship Specialty Start Date End Date Jalyn Smith MD [address] [facility] [address] PCP - General Family Medicine 01/28/13 Brady Avila MD [address] [place] [address] Pulmonary and Critical Care Medicine 11/01/20 Selene Anaya RN [address] [facility] [place] [address] Travel Coordinator Internal Medicine 11/10/22 Lead Loader Relationship Specialty Start Date End Date Jalyn Smith MD [address] [facility] [address] PCP - General Family Medicine 01/28/13 Brady Avila MD [address] [place] [address] Pulmonary and Critical Care Medicine 11/01/20 Selene Anaya RN [address] [facility] [place] [address] Travel Coordinator Internal Medicine 11/10/22 Lead Loader Relationship Specialty Start Date End Date Jalyn Smith MD [address] [facility] [address] PCP - General Family Medicine 01/28/13 Brady Avila MD [address] [place] [place] [address] Pulmonary and Critical Care Medicine 11/01/20 Selene Anaya RN [address] [facility], [place] [id number] Travel Coordinator Internal Medicine 11/10/22 Team Status: Active Member Role Status Dates Dr. Jalyn Smith MD Primary Care Provider Active Dr. Hector Fields DO Emergency Provider Active Dr. Burke Patterson MD Admit Provider, Attending Pro vider Active Lead Loader Relationship Specialty Start Date End Date Jalyn Smith MD [address] [facility], [place] [id number] PCP - General Family Medicine 01/28/13 Brady Avila MD [address] [place] [facility] [place] [address] Pulmonary and Critical Care Medicine 11/01/20 Selene Anaya RN [address] [place] [address] Travel Coordinator Internal Medicine 11/10/22 Lead Loader Relationship Specialty Start Date End Date Jalyn Smith MD [address] [facility], [place] [address]101 PCP - General Family Medicine 01/28/13 Brady Avila MD [address] [facility], [place] 269[address]41 Pulmonary and Critical Care Medicine 11/01/20 Selene Anaya RN [address] [place] [address] Travel Coordinator Internal Medicine 11/10/22 Team Status: Active Member [...] Dr. Angle Latham MD Other Provider Active Lead Loader Relationship Specialty Start Date End Date Jalyn Smith MD [address] [place], [place] [address]4761 PCP - General Family Medicine 01/28/13 Brady Avila MD [address] [facility] [place], [place] [address] Pulmonary and Critical Care Medicine 11/01/20 Selene Anaya, RN [address] [place], [place] [phone] Travel Coordinator Internal Medicine 11/10/22 Team Status: Inactive Member Role Status Dates Dr. Jalyn Smith MD Primary Care Provider Active Dr. Gustavo Justice MD Admit Provider, At tending Provider, Referring Provider Active Dr. Neftaly Lam DO Other Provider Active Dr. Concepcion Peacock MD Other Provider Active Kaci Patino ORDER MANAGEMENT SPECIALIST-C Other Provider Active Melanie Ochoa NP ORDER MANAGEMENT SPECIALIST-C Other Provider Active Lead Loader Relationship Specialty Start Date End Date Jalyn Smith MD [address] [place], [place] [address]31 PCP - General Family Medicine 01/28/13 Brayd Avila MD [address] [facility] [place], [place] [address] Pulmonary and Critical Care Medicine 11/01/20 Selene Anaya, SANDRA [address] [place] [address] Travel Coordinator Internal Medicine 11/10/22 Lead Loader Relationship Specialty Start Date End Date Jalyn Smith MD [address] [place], [place] [id number] PCP - General Family Medicine 01/28/13 Brady Avila MD [address] [facility] [place], [place] [id number] Pulmonary and Critical Care Medicine 11/01/20 Selene Anaya, RN [address] [facility], [place] [phone] Travel Coordinator Internal Medicine 11/10/22 Lead Loader Relationship Specialty Start Date End Date Jalyn Smith MD [address] [facility] [place] [address] PCP - General Family Medicine 01/28/13 Brady Avila MD [address] [facility] [place] [address] Pulmonary and Critical Care Medicine 11/01/20 Selene Anaya RN [address] [facility], [place] [phone] Travel Coordinator Internal Medicine 11/10/22 Lead Loader Relationship Specialty Start Date End Date Jalyn Smith MD [address] [facility] [place] [address] PCP - General Family Medicine 01/28/13 Brady Avila MD [address] [facility] [place] [address] Pulmonary and Critical Care Medicine 11/01/20 Selene Anaya RN [address] [facility], [place] [phone] Travel Coordinator Internal Medicine 11/10/22 Lead Loader Relationship Specialty Start Date End Date Jalyn Smith MD [address] [facility] [address] PCP - General Family Medicine 01/28/13 Brady Avila MD [address] [place] [address] Pulmonary and Critical Care Medicine 11/01/20 Selene Anaya RN [address] [facility], [place] [phone] Travel Coordinator Internal Medicine 11/10/22 Lead Loader Relationship Specialty Start Date End Date Jalyn Smith MD [address] [facility], [place] [address]21 PCP - General Family Medicine 01/28/13 Brady Avila MD [address] [facility], [place] [address]351 Pulmonary and Critical Care Medicine 11/01/20 Selene Anaya, SANDRA [address] [place] [address] Travel Coordinator Internal Medicine 11/10/22 Lead Loader Relationship Specialty Start Date End Date Jalyn Smith MD [address] [facility] [place] [address] PCP - General Family Medicine 01/28/13 Brady Avila MD [address] [facility], [place] 371321 Pulmonary and Critical Care Medicine 11/01/20 Selene Anaya RN [address] [place] [address] Travel Coordinator Internal Medicine 11/10/22 Team Status: Active Member Role Status Dates Dr. Jalyn Smith MD Primary Care Provider Active Dr. Nehemiah Farooq MD Attending Provider Active Dr. Gustavo Justice MD Referring Provider Active Team Status: Inactive Member Role Status Dates Dr. Jalyn Smith MD Primary Care Provider Active Dr. Chin Paul MD Attending Provider, Referring Pr ovider Active Lead Loader Relationship Specialty Start Date End Date Jalyn Smith MD [address] [facility], [place] [address]261 PCP - General Family Medicine 01/28/13 Brady Avila MD [address] [facility], [place] [id number] Pulmonary and Critical Care Medicine 11/01/20 eSlene Anaya, SANDRA [address] [facility], [place] [phone] Travel Coordinator Internal Medicine 11/10/22 Lead Loader Relationship Specialty Start Date End Date Jalyn Smith MD [address] [facility] [address] PCP - General Family Medicine 01/28/13 Brady Avila MD [address] [facility] [place] [address] Pulmonary and Critical Care Medicine 11/01/20 Selene Anaya RN [address] [place] [address] Travel Coordinator Internal Medicine 11/10/22 Lead Loader Relationship Specialty Start Date End Date Jalyn Smith MD [address] [facility] [address] PCP - General Family Medicine 01/28/13 Brady Avila MD [address] [facility], [place] 271231 Pulmonary and Critical Care Medicine 11/01/20October, Darlene Islas RN [address] [place] [address] Travel Coordinator Unspecified 02/19/22 11/09/22 Lead Loader Relationship Specialty Start Date End Date Jalyn Smith MD [address] [facility] [place] [address] PCP - General Family Medicine 01/28/13 Brady Avila MD [address] [facility] [place] [address] Pulmonary and Critical Care Medicine 11/01/20 Yanni, Darlene Islas RN [address] [facility] [place] [address] Travel Coordinator Unspecified 02/19/22 11/09/22 Lead Loader Relationship Specialty Start Date End Date Jalyn Smith MD [address] [facility] [place] [address] PCP - General Family Medicine 01/28/13 Brady Avila MD [address] [place] [address] Pulmonary and Critical Care Medicine 11/01/20 Selene Anaya, SANDRA [address] [place], [place] [phone] Travel Coordinator Internal Medicine 11/10/22 Lead Loader Relationship Specialty Start Date End Date Jalyn Smith MD [address] [facility] [place] [address] PCP - General Family Medicine 01/28/13 Brady Avila MD [address] [place] [address] Pulmonary and Critical Care Medicine 11/01/20 Selene Anaya RN [address] [place], [place] [phone] Travel Coordinator Internal Medicine 11/10/22 Lead Loader Relationship Specialty Start Date End Date Jalyn Smith MD [address] [facility] [place] [address] PCP - General Family Medicine 01/28/13 Brady Avila MD [address] [place] [address] Pulmonary and Critical Care Medicine 11/01/20 Selene Anaya RN [address] [place] [address] Travel Coordinator Internal Medicine 11/10/22 Lead Loader Relationship Specialty Start Date End Date Jalny Smith MD [address] [facility] [place] [address] PCP - General Family Medicine 01/28/13 Brady Avila MD [address] [facility] [place] [address] Pulmonary and Critical Care Medicine 11/01/20 Selene Anaya, RN [address] [place], [place] [phone] Travel Coordinator Internal Medicine 11/10/22 Team Status: Inactive Member Role Status Dates Dr. Jalyn Smith MD Primary Care Provider Active Dr. Juni Ho DO Emergency Provider Active Lead Loader Relationship Specialty Start Date End Date Jalyn Smith MD [address] [facility] [address] PCP - General Family Medicine 01/28/13 Brady Avila MD [address] [facility] [place] [address] Pulmonary and Critical Care Medicine 11/01/20 Selene Anaya, RN [address] [place], [place] [phone] Travel Coordinator Internal Medicine 11/10/22 Lead Loader Relationship Specialty Start Date End Date Jalyn Smith MD [address] [facility] [address] PCP - General Family Medicine 01/28/13 Brady Avila MD [address] [facility] [place] [address] Pulmonary and Critical Care Medicine 11/01/20 Selene Anaya, SANDRA [address] [place], [place] [phone] Travel Coordinator Internal Medicine 11/10/22 Lead Loader Relationship Specialty Start Date End Date Jalyn Smith MD [address] [facility] [address] PCP - General Family Medicine 01/28/13 Brady Avila MD [address] [place] [address] Pulmonary and Critical Care Medicine 11/01/20 Selene Anaya, SANDRA [address] [facility], [place] 3857131 Travel Coordinator Internal Medicine 11/10/22 Lead Loader Relationship Specialty Start Date End Date Jalyn Smith MD [address] [facility] [address] PCP - General Family Medicine 01/28/13 Brady Avila MD [address] [place] [place] [address] Pulmonary and Critical Care Medicine 11/01/20 Selene Anaya RN [address] [place] [address] Travel Coordinator Internal Medicine 11/10/22 Lead Loader Relationship Specialty Start Date End Date Jalyn Smith MD [address] [facility] [address] PCP - General Family Medicine 01/28/13 Brady Avila MD [address] [facility] [place] [address] Pulmonary and Critical Care Medicine 11/01/20 Selene Anaya RN [address] [facility] [place] [address] Travel Coordinator Internal Medicine 11/10/22 Lead Loader Relationship Specialty Start Date End Date Jalyn Smith MD [address] [facility] [address] PCP - General Family Medicine 01/28/13 Brady Avila MD [address] [place] [address] Pulmonary and Critical Care Medicine 11/01/20 Selene Anaya RN [address] [facility] [place] [address] Travel Coordinator Internal Medicine 11/10/22 Lead Loader Relationship Specialty Start Date End Date Jalyn Smith MD [address] [facility] [address] PCP - General Family Medicine 01/28/13 Brady Avila MD [address] [facility] [place] [address] Pulmonary and Critical Care Medicine 11/01/20 Selene Anaya, SANDRA [address] [place], [place] 4654331 Travel Coordinator Internal Medicine 11/10/22 Lead Loader Relationship Specialty Start Date End Date Jalyn Smith MD [address] [facility] [place] 493171 PCP - General Family Medicine 01/28/13 Brady Avila MD [address] [facility], [place] [address] Pulmonary and Critical Care Medicine 11/01/20 Selene Anaya, SANDRA [address] [place] [address] Travel Coordinator Internal Medicine 11/10/22 Lead Loader Relationship Specialty Start Date End Date Jalyn Smith MD [address] [facility] [address] PCP - General Family Medicine 01/28/13 Brady Avila MD [address] [facility], [place] [address] Pulmonary and Critical Care Medicine 11/01/20 Selene Anaya, SANDRA [address] [place] [address] Travel Coordinator Internal Medicine 11/10/22 Lead Loader Relationship Specialty Start Date End Date Jalyn Smith MD [address] [facility] [address] PCP - General Family Medicine 01/28/13 Brady Avila MD [address] [place] [address] Pulmonary and Critical Care Medicine 11/01/20 Selene Anaya, SANDRA [address] [place], [place] 3905331 Travel Coordinator Internal Medicine 11/10/22 Lead Loader Relationship Specialty Start Date End Date Jalyn Smith MD [address] [facility] [address] PCP - General Family Medicine 01/28/13 Brady Avila MD [address] [facility] [place] [address] Pulmonary and Critical Care Medicine 11/01/20 Selene Anaya, SANDRA [address] [place], [place] [phone] Travel Coordinator Internal Medicine 11/10/22 Lead Loader Relationship Specialty Start Date End Date Jalyn Smith MD [address] [facility] [address] PCP - General Family Medicine 01/28/13 Brady Avila MD [address] [facility] [place] [address] Pulmonary and Critical Care Medicine 11/01/20 Selene Anaya RN [address] [place] [address] Travel Coordinator Internal Medicine 11/10/22 Lead Loader Relationship Specialty Start Date End Date Jalyn Smith MD [address] [facility] [address] PCP - General Family Medicine 01/28/13 Brady Avila MD [address] [facility] [place] [address] Pulmonary and Critical Care Medicine 11/01/20 Selene Anaya, SANDRA [address] [place], [place] [phone] Travel Coordinator Internal Medicine 11/10/22 Lead Loader Relationship Specialty Start Date End Date Jalyn Smith MD [address] [facility] [address] PCP - General Family Medicine 01/28/13 Brady Avila MD [address] [facility] [place] [address] Pulmonary and Critical Care Medicine 11/01/20 Selene Anaya, SANDRA [address] [place] [address] Travel Coordinator Internal Medicine 11/10/22 Lead Loader Relationship Specialty Start Date End Date Jalyn Smith MD [address] [facility] [address] PCP - General Family Medicine 01/28/13 Brady Avila MD [address] [facility] [place] [address] Pulmonary and Critical Care Medicine 11/01/20 Selene Anaya RN [address] [place], [place] [phone] Travel Coordinator Internal Medicine 11/10/22 05/14/24 Marjan Reid APRN.CORROSION CONTROL ENGINEER [address] [facility] [place] [address] R&D Lab Technician Family Medicine 05/16/24 Casandra Kinsey APRN.CORROSION CONTROL ENGINEER [address] [facility] [address] R&D Lab Technician Family Medicine 05/16/24 Lead Loader Relationship Specialty Start Date End Date Jalyn Smith MD [address] [place] [address] PCP - General Family Medicine 01/28/13 Brady Avila MD [address] [place] [address] Pulmonary and Critical Care Medicine 11/01/20 Marjan Reid CHEST PAINTING AND SEALING SUPERVISOR.CORROSION CONTROL ENGINEER [address] [place] [address] R&D Lab Technician Family Medicine 05/16/24 Casandra Kinsey CHEST PAINTING AND SEALING SUPERVISOR.CORROSION CONTROL ENGINEER [address] [place] [address] [facility] 05/16/24 Lead Loader Relationship Specialty Start Date End Date Jalyn Smith MD [address] [place] [address] PCP - General Family Medicine 01/28/13 Brady Avila MD [address] [place] [address] Pulmonary and Critical Care Medicine 11/01/20 Marjan Reid, CHEST PAINTING AND SEALING SUPERVISOR.CORROSION CONTROL ENGINEER [address] [place] [address] R&D Lab Technician [facility] 05/16/24 Casandra Kinsey CHEST PAINTING AND SEALING SUPERVISOR.CORROSION CONTROL ENGINEER [address] [place] [address] R&D [facility] 05/16/24 Lead Loader Relationship Specialty Start Date End Date Jalyn Smith MD [address] [place] [address] PCP - General Family Medicine 01/28/13 Brady Avila MD [address] [place] [address] Pulmonary and Critical Care Medicine 11/01/20 Marjan Reid APRN.CORROSION CONTROL ENGINEER [address] [place] [address] R&D Lab Technician Family [facility] 05/16/24 Casandra Kinsey CHEST PAINTING AND SEALING SUPERVISOR.CORROSION CONTROL ENGINEER [address] [place] [address] [facility] 05/16/24 Lead Loader Relationship Specialty Start Date End Date Jalyn Smith MD [address] [place] [address] PCP - General Family Medicine 01/28/13 Brady Avila MD [address] [place] [address] Pulmonary and Critical Care Medicine 11/01/20 Marjan Reid, CHEST PAINTING AND SEALING SUPERVISOR.CORROSION CONTROL ENGINEER [address] [place] [address] [facility] 05/16/24 Casandra Kinsey CHEST PAINTING AND SEALING SUPERVISOR.CORROSION CONTROL ENGINEER [address] [place] [address] [facility] 05/16/24 Lead Loader Relationship Specialty Start Date End Date Jalyn Smith MD [address] [place] [address] PCP - General Family Medicine 01/28/13 Brady Avila MD [address] [place] [address] Pulmonary and Critical Care Medicine 11/01/20 Marjan Reid APRN.CORROSION CONTROL ENGINEER [address] [place] [address] [facility] 05/16/24 Casandra Kinsey APRN.CORROSION CONTROL ENGINEER [address] [place], [place] [address] [facility] 05/16/24 Team Status: Inactive Member Role Status [...] September 04, 2024 End: September 04, 2024 Lead Loader Relationship Specialty Start Date End Date Jalyn Smith MD [address] [place], [place] [address]74[address] PCP - General Family Medicine 01/28/13 Brady Avila MD [address], [place] [address] Pulmonary and Critical Care Medicine 11/01/20 Marjan Reid APRN.CORROSION CONTROL ENGINEER [address] [place], [place] [address] [facility] 05/16/24 Casandra Kinsey APRN.CORROSION CONTROL ENGINEER [address] [facility] [place] [address] R&D Lab Technician Family [facility] 05/16/24 Lead Loader Relationship Specialty Start Date End Date Jalyn Smith MD [address] [place] [address] PCP - General Family Medicine 01/28/13 Brady Avila MD [address] [place] [address] Pulmonary and Critical Care Medicine 11/01/20 Marjan Reid, CHEST PAINTING AND SEALING SUPERVISOR.CORROSION CONTROL ENGINEER [address] [place] [address] R&D [facility] 05/16/24 Casandra Kinsey CHEST PAINTING AND SEALING SUPERVISOR.CORROSION CONTROL ENGINEER [address] [place] [address] [facility] 05/16/24 Lead Loader Relationship Specialty Start Date End Date Jalyn Smith MD [address] [place] [address] PCP - General Family Medicine 01/28/13 Brady Avila MD [address] [place] [address] Pulmonary and Critical Care Medicine 11/01/20 Marjan Reid, CHEST PAINTING AND SEALING SUPERVISOR.CORROSION CONTROL ENGINEER [address] [place] [address] [facility] 05/16/24 Casandra Kinsey CHEST PAINTING AND SEALING SUPERVISOR.CORROSION CONTROL ENGINEER [address] [facility] [place] [address] R&D Lab [facility] Medicine 05/16/24 Lead Loader Relationship Specialty Start Date End Date Jalyn Smith MD [address] [place] [address] PCP - General Family Medicine 01/28/13 Brady Avila MD [address] [place] [address] Pulmonary and Critical Care Medicine 11/01/20 Marjan Reid CHEST PAINTING AND SEALING SUPERVISOR.CORROSION CONTROL ENGINEER [address] [place] [address] R&D Lab Technician [facility] Medicine 05/16/24 Casandra Kinsey APRN.CORROSION CONTROL ENGINEER [address] [place] [address] R&D [facility] 05/16/24 Lead Loader Relationship Specialty Start Date End Date Jalyn Smith MD [address] [place] [address] PCP - General Family Medicine 01/28/13 Brady Avila MD [address] [place] [address] Pulmonary and Critical Care Medicine 11/01/20 Marjan Reid CHEST PAINTING AND SEALING SUPERVISOR.CORROSION CONTROL ENGINEER [address] [place] [address] R&D Lab [facility] Medicine 05/16/24 Casandra Kinsey APRN.CORROSION CONTROL ENGINEER [address] [place] [address] R&D [facility] 05/16/24 Lead Loader Relationship Specialty Start Date End Date Jalyn Smith MD [address] [place] [address] PCP - General Family Medicine 01/28/13 Brady Avila MD [address] [place] [address] Pulmonary and Critical Care Medicine 11/01/20 Marjan Reid, CHEST PAINTING AND SEALING SUPERVISOR.CORROSION CONTROL ENGINEER [address] [place] [address] R&D [facility] 05/16/24 Casandra Kinsey CHEST PAINTING AND SEALING SUPERVISOR.CORROSION CONTROL ENGINEER [address] [place] [address] [facility] 05/16/24 Lead Loader Relationship Specialty Start Date End Date Jalyn Smith MD [address] [place] [address] PCP - General Family Medicine 01/28/13 Brady Avila MD [address] [place] [address] Pulmonary and Critical Care Medicine 11/01/20 Marjan Reid, CHEST PAINTING AND SEALING SUPERVISOR.CORROSION CONTROL ENGINEER [address] [place] [address] [facility] 05/16/24 Casandra Kinsey CHEST PAINTING AND SEALING SUPERVISOR.CORROSION CONTROL ENGINEER [address] [place] [address] [facility] 05/16/24 Lead Loader Relationship Specialty Start Date End Date Jalyn Smith MD [address] [place] [address] PCP - General Family Medicine 01/28/13 Brady Avila MD [address] [place] [address] Pulmonary and Critical Care Medicine 11/01/20 Marjan Reid APRN.CORROSION CONTROL ENGINEER [address] [place] [address] [facility] 05/16/24 Casandra Kinsey APRN.CORROSION CONTROL ENGINEER [address] [place] [address] [facility] 05/16/24 Lead Loader Relationship Specialty Start Date End Date Jalyn Smith MD [address] [place] [address] PCP - General Family Medicine 01/28/13 Brady Avila MD [address] [place] [address] Pulmonary and Critical Care Medicine 11/01/20 Marjan Reid APRN.CORROSION CONTROL ENGINEER [address] [place] [address] [facility] 05/16/24 Casandra Kinsey APRN.CORROSION CONTROL ENGINEER [address] [place] [address] [facility] 05/16/24 Lead Loader Relationship Specialty Start Date End Date Jalyn Smith MD [address] [place] [address] PCP - General Family Medicine 01/28/13 Brady Avila MD [address] [place] [address] Pulmonary and Critical Care Medicine 11/01/20 Marjan Reid APRN.CORROSION CONTROL ENGINEER [address] [place] [address] [facility] 05/16/24 Casandra Kinsey APRN.CORROSION CONTROL ENGINEER [address] [place] [address] [facility] 05/16/24 Lead Loader Relationship Specialty Start Date End Date Jalyn Smith MD [address] [place] [address] PCP - General Family Medicine 01/28/13 Brady Avila MD [address] [place] [address] Pulmonary and Critical Care Medicine 11/01/20 Marjan Reid CHEST PAINTING AND SEALING SUPERVISOR.CORROSION CONTROL ENGINEER [address] [place] [address] [facility] 05/16/24 Casandra Kinsey CHEST PAINTING AND SEALING SUPERVISOR.CORROSION CONTROL ENGINEER [address] [place] [address] [facility] 05/16/24 Lead Loader Relationship Specialty Start Date End Date Jalyn Smith MD [address] [place] [address] PCP - General Family Medicine 01/28/13 Brady Avila MD [address] [place] [address] Pulmonary and Critical Care Medicine 11/01/20 Marjan Reid CHEST PAINTING AND SEALING SUPERVISOR.CORROSION CONTROL ENGINEER [address] [place] [address] [facility] 05/16/24 Casandra Kinsey APRN.[facility] [address] [place] [address] [facility] 05/16/24 Goals (unrecognized section and content) Goals [...] BE BASED ON THE PRIMARY CLINICAL RECORDS. [employer] [facility]. provides no warranty or guarantee of the accuracy or completeness of information in this document.
--- NOTE | 2025-04-30 15:38 | NURSING ---
discussed code status with pt, wants to be full code. previous stay pt was DNRCCA no intubation.
[2025-04-30 15:58] VITALS: BP 140/86; PULSE 84; RESP 20; TEMP 36.6; O2SAT 99
[2025-04-30 16:06] VITALS: BMI 29.9
--- NOTE | 2025-04-30 17:27 | PCM.HP.STD ---
HPI - General General Date of Admission: 04/30/25 Date of Service: 05/01/25 Chief Complaint: Here for rehabilitation. HPI Narrative ENZO VAZQUEZ, is a 79 Female who presents with followin04/23/2025 [facility] ED nausea and vomiting. Nausea, holding emesis bag, chronic oxygen 2/2 COPD. Morphine, Zofran, IV fluids given. CT abdomen/pelvis showed small bowel obstruction, transition zone right inguinal hernia. 04/24/2025 Admit [facility]. General surgery planning diagnostic laparoscopy, possible laparotomy, possible bowel resection for small bowel obstruction. IV fluids for acute kidney injury. 04/24/2025 Dr. Mcghee performed diagnostic laparoscopy, exploration of right groin repair of femoral hernia with mesh. 04/24/2025 Acute kidney injury, creatinine improved from 2.15 to 1.74 with IV fluids. Insulin drip, glucose 2/2 elevated sodium hydroxybutyrate. Zosyn IV, urine culture for UTI. Hold Metoprolol, Hold HCTZ, Hydralazine IV as needed for elevated blood pressure. 04/25/2025 Pain upper chest, no flatus, feeling short of breath. NG tube in place. CATHI creatinine 1.35 with IV fluids. Replete K 2.7. D5 with K for hypoglycemia. Zosyn, urine culture pending for urinary tract infection. 04/26/2025 Feeling better, passing gas, breathing better. NG tube in place. CATHI resolved, creatinine 1.02. K 3.3, continue IV fluids with K, add iron for anemia. Change Zosyn to Cefepime IV for Citrobacter, Enterobacter in sputum culture. UTI ruled out, urine culture growing yeast, contaminant. D5 IV for hypoglycemia. Metoprolol IV for Hypertension. 04/27/2025 Sitting up in bed, tolerating liquids, emesis x 1. Had BM, NG tube out. K 3.7, Hemoglobin 10, D/C D5 IV. Cefepime IV for possible pneumonia, positive sputum culture. 04/28/2025 Tolerating clears. Advance diet to diabetic deit. Glucose stable. 04/29/2025 Slowly feeling better, incomplete bowel movement. Tolerating diet, cough better with Robitussin. Change antibiotic to Levaquin to cover Citrobacter/Enterobacter in sputum. Doing well without Butrans patch. Tolerating Metoprolol. 04/30/2025 Admit to TCU with debility, here for rehabilitation, strengthening, prior to discharge home alone. [facility] Medical History (Updated 04/30/25 @ 17:[address] Gustavo Justice MD) Ascending aortic aneurysm Upper GI bleed Aortic dissection, abdominal Weakness Venous stasis ulcer of left lower leg with edema of left lower leg Right knee pain Debility Generalized muscle weakness Edema of both lower extremities Muscle spasm RLS (restless legs syndrome) GERD (gastroesophageal reflux disease) MICHEL (obstructive sleep apnea) Morbid obesity with BMI of 40.0-44.9, adult Degenerative disc disease, lumbar Type 2 diabetes mellitus without complication Osteoarthritis Essential hypertension Fibromyalgia Depression COPD (chronic obstructive pulmonary disease) Home Medications Medication Instructions Recorded Last Taken Type albuterol sulfate 90 mcg/actuation 2 puff inhalation Q4H PRN Sob &/Or 10/14/18 Unknown History aerosol inhaler Wheezing metformin 500 mg tablet 500 mg PO DAILY Blood sugar 10/14/18 12/10/22 History ropinirole 0.5 mg tablet 1.5 mg PO QHS Restless leg 10/14/18 12/09/22 History Oxygen #1 ea 10/27/18 Unknown History sertraline 50 mg tablet 50 mg PO DAILY Mood 07/25/21 12/10/22 History acetaminophen 500 mg tablet 1,000 mg (2 x 500 mg) PO Q6H PRN 08/07/21 Unknown Rx PRN Pain Score 1-3 #0 tabs metoprolol succinate 50 mg 50 mg PO DAILY BP/HR 30 days #0 12/15/22 Unknown Rx tablet,extended release 24 hr tabs budesonide 160 mcg-glycopyr 9 2 inh inhalation BID lungs 09/04/24 Unknown History mcg-formot 4.8 mcg/actuation HFA inhaler (Breztri Aerosphere) hydrochlorothiazide 12.5 mg capsule 12.5 mg PO Q12H BP 09/04/24 Unknown History oxybutynin chloride 5 mg 5 mg PO DAILY bladder 09/04/24 Unknown History tablet,extended release 24 hr baclofen 10 mg tablet 10 mg PO TID muscle spasm 04/23/25 Unknown History ferrous sulfate 325 mg (65 mg 325 mg PO DAILY.TCU anemia 04/23/25 Unknown History iron) tablet (FeroSul) gabapentin 100 mg capsule 100 mg PO TIDCM nerve pain 3 days 04/30/25 Unknown Rx #9 caps levofloxacin 750 mg tablet 750 mg PO DAILY ATB 3 days #3 tabs 04/30/25 Unknown Rx Allergy/AdvReac Type Severity Reaction Status Date / Time lisinopril AdvReac Intermediate cough Verified 04/23/25 19:43 pregabalin (From Lyrica) AdvReac Swelling Verified 04/23/25 19:43 Family History Mother Cancer lymphoma Father COPD (chronic obstructive pulmonary disease) Cancer bone Son Heart disease ischemic heart disease Surgical History S/P hernia repair History of appendectomy History of tonsillectomy History of hysterectomy Social History household members: none Smoking Status: Former smoker how long ago did patient quit smokin.5 years ago alcohol intake: current alcohol intake frequency: holidays/special occasions only substance use type: does not use caffeine: Yes Type: coffee Number of servings: 1 ROS Constitutional Constitutional: Reports weakness; Denies chills, fever(s) or weight gain ENT HEENT: Denies headache(s), nasal congestion or nasal discharge Cardiovascular Cardiovascular: Denies chest pain or palpitations Respiratory/Chest Respiratory/Chest: Denies cough, excessive phlegm production or shortness of breath with exertion Gastrointestinal Gastrointestinal: Denies abdominal pain, nausea or vomiting Genitourinary Genitourinary: Denies dysuria Musculoskeletal Musculoskeletal: Denies joint pain or joint swelling Integumentary Integumentary: Denies rash or wounds Neurologic Neurologic: Denies focal weakness, numbness or tingling Psychiatric Psychiatric: Denies anxiety, auditory hallucinations, depression, homicidal ideation or suicidal ideation Vital Signs Vital Signs Vital Signs: 04/30/25 15:58 Temperature 97.9 F Temperature Source Temporal Pulse Rate 84 Respiratory Rate 20 H Blood Pressure 140/86 H Blood Pressure Mean 104 Blood Pressure Source Monitor Blood Pressure Position Sitting Blood Pressure Location Right Forearm Pulse Ox 99 Oxygen Delivery Method Nasal Cannula Oxygen Flow Rate (L/min) 3 Weight Weight: 69.485 kg Body Mass Index (BMI) 29.9 Physical Exam Const alert General Appearance: cooperative HEENT normocephalic Eyes PERRL and EOMs intact bilaterally Neck supple, no JVD and no carotid bruits Resp normal respiratory effort, normal air movement and clear to auscultation bilaterally Cardio regular rate and regular rhythm GI normal to inspection, nondistended, normoactive bowel sounds, non-tender and non-distended Extremity normal capillary refill General Extremity: Negative for edema Skin no rashes or lesions noted General Skin Exam: no breakdown Psych affect normal Appearance: appropriate Results Lab / Micro Data 05/01/25 05:14 05/01/25 05:14 Assessment & Plan Assessment/Plan (1) Debility: (2) Small bowel obstruction: (3) Right inguinal hernia: (4) Acute kidney injury: (5) Hypoglycemia: (6) Hypokalemia: (7) Sputum culture positive for Enterobacter species: (8) Chronic obstructive pulmonary disease: QUALIFIERS: COPD type: unspecified COPD Qualified Code(s): J44.9 - Chronic obstructive pulmonary disease, unspecified (9) Type 2 diabetes mellitus with hyperglycemia: (10) Restless leg syndrome: (11) Depression: (12) Diabetic polyneuropathy: (13) Opioid dependence: (14) Overactive bladder: (15) Muscle spasm: (16) Iron deficiency anemia: PLAN: Plan 79 year old female with below past medical history hospitalized for small bowel obstruction, underwent diagnostic laparoscopy, exploration right groin repair of femoral hernia with mesh 04/24/[address] Mcghee, postoperative course complicated by acute kidney injury, persistent hypoglycemia, hyopkalemia, Citrobacter/Enterobacter in sputum, admitted to TCU with debility, here for rehabilitation, strengthening, prior to discharge home alone. Debility - PT/OT. Pain - Tylenol 1000mg q6 prn pain (1-10). Bowel - senna/colace 1 tablet bid prn. Adult immunization - Administer pneumonia vaccine, covid vaccine, flu vaccine as appropriate. DVT prophylaxis - Lovenox 40mg sc daily. COPD - Wixela 250/50 1 puff q12, Incruse 1 puff daily, Albuterol 2.5mg q4 prn, add Medrol dose pack. Muscle spasm - Baclofen 10mg tid. Iron deficiency anemia - Iron sulfate 325mg daily. Neuropathic pain - Gabapentin 100mg tid. Hypertension - Metoprolol succinate 50mg daily, HCTZ 12.5mg q12. Citrobacter/Enterobacter sputum - Levaquin 750mg po daily thru 05/04/2025. Diabetes Mellitus II - Metformin 500mg daily. Restless leg syndrome - Mirapex 0.75mg qhs. Overactive bladder - Tolterodine 2mg daily. The following psychotropic medication was present on admission: Sertraline 50mg daily. Psychotropic medication therapy is indicated for a diagnosis of: Major Depression. Based on my clinical evaluation, continuation of the medication is necessary at this time. Gradual dose reduction plan (select one): ____ GDR will be attempted. Will monitor patient symptoms and behaviors in response to GDR. __x__ GRD contraindicated. Reason contraindicated: stable chronic intermediate card tender use.
[2025-04-30 22:00] VITALS: BP 147/90; PULSE 79; RESP 20
[2025-04-30] MEDS: Fluticasone Propion/Salmeterol 250-50 Inhaler 1 PUFF INHALATION (22:00)
[2025-04-30 22:56] VITALS: BP 150/82; PULSE 74
--- NOTE | 2025-05-01 04:59 | NURSING ---
Written communication left for Dr. Justice regarding frequent elevated BPs with recent BP 162/115 on 04/29/25 on acute side. See vital signs for TCU admit and HS BP.
[2025-05-01 06:07] LABS: Hematocrit 32.5 % (37-47); Hemoglobin 10.1 g/dL (12.0-15.0); Mean Corp Hgb Conc 31.1 g/dL (32-36); Mean Corpuscular Volume 96.7 fL (81-99); Mean Platelet Vol. 9.0 fl (6.2-12.0); POSITIVE COUNT YES; POSITIVE MORPHOLOGY YES; Platelet Count 192 K/mm3 (150-450); RBC Distribution Width CV 13.1 % (11.6-14.6); RBC Distribution Width SD 46.5 fl (35.1-43.9); Red Blood Count 3.36 M/mm3 (4.2-5.4); White Blood Count 9.1 K/mm3 (4.4-11.0)
[2025-05-01 06:10] LABS: Differential Indicated MANUAL DIFF
[2025-05-01 06:29] LABS: Anion Gap 7 (5-15); BUN 15 mg/dL (4-19); BUN/Creat Ratio 18.3 RATIO (10-20); Calcium,Total 7.6 mg/dL (7.6-11.0); Carbon Dioxide 32.7 mmol/L (21.0-32.0); Chloride 101 mmol/L (98-108); Estimated Creatinine Clearance 49.97 ml/min (50-250); Glucose 113 mg/dL (70-99); Potassium 4.2 mmol/L (3.3-5.1)
[2025-05-01 07:06] VITALS: O2SAT 93
[2025-05-01 07:24] LABS: Neutrophil-Band 1 % (0-5); Neutrophil-Segmented 70 % (47-70); Total Cells Counted 100 (MANUAL DIFF)
[2025-05-01 07:27] LABS: Differential Comment SCANNED
[2025-05-01 07:28] LABS: Red Cell Morphology NORM C+C NORMAL (NORM C&C)
[2025-05-01 07:30] LABS: Toxic Granulation 1+
[2025-05-01 07:34] VITALS: BP 131/82; PULSE 91; RESP 21; TEMP 36.2; O2SAT 100
[2025-05-01] MEDS: Umeclidinium Bromide Inhaler 1 PUFF INHALATION (08:14)
[2025-05-01] MEDS: Fluticasone Propion/Salmeterol 250-50 Inhaler 1 PUFF INHALATION ×2 (08:15→21:29)
[2025-05-01 08:16] VITALS: PULSE 91
[2025-05-01] MEDS: Metoprolol(XL)Succ 50 MG Tablet PO (08:16)
[2025-05-01] MEDS: MethylPREDNISolone DosePak 4 MG BOX PO ×4 (08:17→21:27)
--- NOTE | 2025-05-01 08:59 | NURSING ---
Physical Trainer Note; Activity Asset: Complete Kandi has returned to TCU for therapy. She remains independent in her choice of daily activities and no group activities. She has her smartphone and family will visits daily and bring her computer. She welcomes the quality tester and therapy dog as before. Staff will remind her of weekly activities offer in room activities and respect her right to say no.
--- NOTE | 2025-05-01 10:09 | PHA.CONS_ITS ---
Documented by User: Vibha Ramos 05/01/25 10:42 TCU RX Drug Regimen Review Subjective/Objective Subjective/Objective Subjective: TCU Admission. 79 YOF presented to ER with nausea and vomiting. Hospitalized for small bowel obstruction, underwent diagnostic laparoscopy, e xploration right groin repair of femoral hernia with mesh 04/24/[address] Mcghee, postoperative course complicated by acute kidney injury, persistent hypoglycemia, hypokalemia, Citrobacter/Enterobacter in sputum. Admitted to TCU with debility for strengthening and rehabilitation. Objective: Allergies lisinopril Adverse Reaction (Intermediate, Verified 04/23/25 19:43) cough pregabalin (From Lyrica) Adverse Reaction (Verified 04/23/25 19:43) Swelling Current Medications Generic Name Dose Route Start Last Admin Trade Name Freq PRN Reason Stop Dose Admin Acetaminophen 1,000 mg 05/01/25 14:00 Acetaminophen 500 Mg Tablet PO Q8 DIAZ Albuterol Sulfate 2 puff 04/30/25 16:11 Albuterol Ih (6.7 Gm) 1 Puff Inhaler INHALATION Q4H PRN SOB &/OR WHEEZING Amlodipine Besylate 5 mg 05/01/25 10:00 05/01/25 08:16 Amlodipine 5 Mg Tablet PO 5 mg DAILY [facility] Administration Protocol Baclofen 10 mg 04/30/25 22:00 05/01/25 05:33 Baclofen 10 Mg Tablet PO 10 mg TID [facility] Administration Enoxaparin Sodium 40 mg 05/01/25 06:00 05/01/25 05:33 Enoxaparin 40 Mg/0.4 Ml Syringe SC 40 mg DAILY@0600 [facility] Administration Ferrous Sulfate 325 mg 05/01/25 12:00 Ferrous Sulfate 325 Mg Tablet PO DAILY@1200 [facility] Gabapentin 100 mg 04/30/25 17:45 05/01/25 08:15 Gabapentin 100 Mg Capsule PO 100 mg TIDCM DIAZ Administration Guaifenesin 600 mg 05/01/25 10:00 05/01/25 08:15 Guaifenesin 600 Mg Tablet PO 600 mg BID DIAZ Administration Hydrochlorothiazide 25 mg 05/01/25 10:00 05/01/25 08:15 Hydrochlorothiazide 25 Mg Tablet PO 25 mg DAILY [facility] Administration Protocol Levofloxacin 750 mg 05/01/25 10:00 05/01/25 08:15 Levofloxacin 750 Mg Tablet PO 05/04/25 10:01 750 mg DAILY DIAZ Administration Metformin HCl 500 mg 05/01/25 08:00 05/01/25 08:15 Metformin Hcl 500 Mg Tablet PO 500 mg DAILYCM DIAZ Administration Methylprednisolone 8 mg 05/01/25 08:00 05/01/25 08:17 Methylprednisolone Dosepak 4 Mg Box PO 05/06/25 08:59 8 mg 0800 DIAZ Administration Taper Metoprolol Succinate 50 mg 05/01/25 10:00 05/01/25 08:16 Metoprolol(Xl)Succ 50 Mg Tablet PO 50 mg DAILY DIAZ Administration Protocol Nystatin 1 applic 05/01/25 10:00 05/01/25 08:25 Nystatin Powder 15gm Bottle TOPICAL 1 applic BID DIAZ Administration Protocol Pramipexole Dihydrochloride 0.75 mg 04/30/25 22:00 04/30/25 22:00 Pramipexole Di-Hcl 0.25 Mg Tablet PO 0.75 mg QHS DIAZ Administration Fluticasone/Salmeterol 1 puff 04/30/25 22:00 05/01/25 08:15 Fluticasone Propion/Salmeterol 250-50 Inhaler INHALATION 1 puff Q12 DIAZ Administration Senna/Docusate Sodium 1 tablet 04/30/25 17:47 Senna/Docusate Sodium 1 Tablet PO BID PRN Constipation Sertraline HCl 50 mg 05/01/25 10:00 05/01/25 08:16 Sertraline 50 Mg Tablet PO 50 mg DAILY DIAZ Administration Sodium Chloride 10 - 40 ml 04/30/25 15:40 0.9% Saline Lock 10 Ml Syringe IV UD PRN SALINE FLUSH Tolterodine Tartrate 2 mg 05/01/25 10:00 05/01/25 08:15 Tolterodine Tartrate 2 Mg Cap.Sa PO 2 mg DAILY DIAZ Administration Tuberculin PPD 0.1 ml 05/08/25 10:00 Tuberculin,Purif.Prot.Deriv. 50 Tu/Ml Vial ID 05/08/25 10:01 X1 ONE Umeclidinium [place] 1 puff 05/01/25 10:00 05/01/25 08:14 Umeclidinium [place] Inhaler INHALATION 1 inh DAILY DIAZ Administration Problem List Iron deficiency anemia (Acute) Muscle spasm (Acute) Opioid dependence (Acute) Type 2 diabetes mellitus with hyperglycemia (Acute) Sputum culture positive for Enterobacter species (Acute) Hypokalemia (Acute) Hypoglycemia (Acute) Right inguinal hernia (Acute) Small bowel obstruction (Acute) Acute kidney injury (Acute) Diabetic polyneuropathy (Acute) Overactive bladder (Acute) Restless leg syndrome (Acute) Chronic obstructive pulmonary disease (Chronic) Debility (Acute) Depression (Acute) Vital Signs Temp Pulse Resp BP Pulse Ox O2 Del Method O2 Flow Rate 97.2 F L 91 21 H 131/82 H 100 Nasal Cannula 3 05/01/25 07:34 05/01/25 08:16 05/01/25 07:34 05/01/25 07:34 05/01/25 07:34 05/01/25 07:34 05/01/25 07:34 Oxygen Flow Rate (L/min) 3 Oxygen Delivery Method Nasal Cannula Weight: 69.485 kg Body Mass Index (BMI) 29.9 Sodium 140 mmol/L (133-145) 05/01/25 05:14 Potassium 4.2 mmol/L (3.3-5.1) 05/01/25 05:14 Chloride 101 mmol/L (98-108) 05/01/25 05:14 Carbon Dioxide 32.7 mmol/L (21.0-32.0) H 05/01/25 05:14 Anion Gap 7 (5-15) 05/01/25 05:14 BUN 15 mg/dL (4-19) 05/01/25 05:14 Creatinine 0.82 mg/dL (0.70-1.20) 05/01/25 05:14 Est GFR (MDRD) Non-Af 73 (>60) 05/01/25 05:14 BUN/Creatinine Ratio 18.3 RATIO (10-20) 05/01/25 05:14 Glucose 113 mg/dL (70-99) H 05/01/25 05:14 Assessment/Plan: 1. Pain: acetaminophen 1000mg PO Q8. Last LFTs:04/23/25. Check LFTs if resident develops symptoms of hepatoxicity. Consider monitoring LFTs if patient using > 3 gm/day of acetaminophen for prolonged period. Do not exceed 4000 mg in 24 hours. Monitor symptoms of pain/resident distress and ability to participate in therapy. 2. Bowel: senna/docusate 1T PO BID PRN constipation. Resident has not used any prn doses at this time. Last document bowel movement:04/30/25. Monitor for usage of prn medications, abdominal pain, frequency of bowel movements, diarrhea. Recommend holding bowel regimen if resident develops diarrhea. 3. DVT prophylaxis: enoxaparin 40mg SC daily. Please continue to monitor for S/S of bleeding, hemoglobin (last 10.1g/dL), platelets (last 192,000). Enoxaparin is a renally dosed medication. CrCl estimated =50mL/min. Dose appropriate for current renal function. Monitor serum creatine periodically. 4. Citrobacter/enterobacter sputum: levofloxacin 750mg PO daily thru 05/04/25 and guaifenesin 600mg PO BID. Please continue to monitor for S/S of infection, diarrhea, joint/tendon pain (black box warning). Levofloxacin is a renally dosed medication. CrCl estimated =50mL/min. Dose appropriate for current renal function. Monitor serum creatine periodically. 5. Hypertension: metoprolol succinate 50mg PO daily, hydrochlorothiazide 25mg PO daily (recently increased) and amlodipine 5mg PO daily (recently added). Monitor for bradyarrhythmia, fatigue, sleep disturbance and for new/worsening heart failure symptoms. For diabetic patients, monitor glucose. Monitor for development of peripheral edema. Please continue to monitor BP (range 131/82- 150/82), HR (range 74-91), potassium (last 4.2mmol/L), sodium (last 140mmol/L). 6. Diabetes mellitus II: metformin 500mg PO daily. Please continue to monitor hemoglobin A1c (last 5.2% 04/24/25), eGFR (last 73mL/min), diarrhea, glucose (last 113mg/dL, 108 mg/dL). 7. Neuropathic pain: gabapentin 100mg PO TID. Please consider changing to BID to prevent adverse effects as the recommended frequency for CrCl 50 mL/min is BID. Thanks. Please continue to monitor for confusion, renal function, falls/fractures (Adonis). 8. Muscle spasms: baclofen 10mg PO TID. Please continue to monitor for muscle spasms, drowsiness and hypotonia. 9. COPD: fluticasone/salmeterol 250/50mcg 1 puff inhalation Q12, Incruse ellipta 1 puff daily, albuterol MDI Q4H PRN SOB/wheezing and Medrol dose pack. Resident has not used any prn doses at this time. Please continue to monitor for SOB, wheezing, PRN usage, thrush, infection, glucose (last 108mg/dL, 113 mg/dL), WBC, insomnia, upset stomach. Please rinse mouth with water and spit following administration of Wixela to prevent thrush. 10. Iron deficiency anemia: ferrous sulfate 325mg PO daily. Please continue to monitor hemoglobin (last 10.1g/dL), constipation, dark stools, iron studies (last 04/27/25). 11. Restless leg syndrome: pramipexole 0.75mg PO QHS. Please continue to monitor for S/S of restless legs, drowsiness, dizziness. 12. Overactive bladder: tolterodine 2mg PO daily. Please continue to monitor for S/S of OAB, dementia/delirium (BEERs). Assessment/Plan for indications treated with psychotropic medications: 1. Major Depression: sertraline 50mg PO daily. Please see physician note regarding GDR. Monitor for diarrhea, nausea, headache, anxiety or drowsiness, suicidal thoughts or behaviors (Boxed Warning), symptoms of bleeding, symptoms of serotonin syndrome (including agitation, confusion, hyperreflexia, rigidity/myoclonus, tremor, tachycardia, tachypnea), sodium levels (last Na =140mmol/L). Monitor for efficacy including resident symptoms, behaviors and indications of distress. Monitor for tolerability including mental status, cognition, excessive sleepiness, withdrawal or decreased participation in activities and decline in physical functioning. Maximize use of nonpharmacologic/behavioral interventions to facilitate dose reduction or discontinuation as appropriate. Please evaluate the appropriateness of GDR unless contraindicated. If appropriate, GDR should be attempted in 2 separate quarters within the first year of use or admission to TCU. If GDR attempted, monitor resident symptoms/behaviors. Medical chart and medication regimen reviewed. The following medication irregularities or issues were identified: 1. Gabapentin 100mg PO TID. Please consider changing to BID to prevent adverse effects as the recommended frequency for CrCl 50 mL/min is BID. Thanks. Date Date of Note: 05/01/25 Documented by User: Dr. Gustavo Justice MD 05/01/25 11:04 TCU RX Drug Regimen Review Provider Comments Provider responsibility Provider Comments to Recommendations by Pharmacy Disagree: Define (Stable chronic halfway use of Gabapentin. )
[2025-05-01] MEDS: Tuberculin,Purif.prot.deriv. 50 TU/ML Vial 0.1 ML ID (11:55)
--- NOTE | 2025-05-01 13:27 | MDS.RN ---
MDS Entry Tracker competed, Pain assessed.
[2025-05-01 15:16] VITALS: O2SAT 99
[2025-05-01 16:51] VITALS: BP 130/64; PULSE 82; RESP 30; TEMP 36.7; O2SAT 98
[2025-05-01 18:48] VITALS: RESP 18
[2025-05-02 00:10] VITALS: PULSE 78; RESP 20
--- NOTE | 2025-05-02 07:38 | NURSING ---
Patient reports feeling "very anxious alot", patient states experiences severe anxiety at home "Especially if I have to go somewhere". Patient states prefers aerosol treaments PRN vs inhaler. Dr. Justice on unit and notified of patient request for PRN aerosols and Anxiety medication
[2025-05-02 08:42] VITALS: BP 113/75; PULSE 81
[2025-05-02] MEDS: Fluticasone Propion/Salmeterol 250-50 Inhaler 1 PUFF INHALATION ×2 (08:42→20:56)
[2025-05-02] MEDS: Metoprolol(XL)Succ 50 MG Tablet PO (08:42)
[2025-05-02] MEDS: MethylPREDNISolone DosePak 4 MG BOX PO ×4 (08:43→20:53)
[2025-05-02] MEDS: Umeclidinium Bromide Inhaler 1 PUFF INHALATION (08:44)
[2025-05-02 09:32] VITALS: O2SAT 94
--- NOTE | 2025-05-02 14:41 | CASEMGMT ---
Social Work SW met with patient to complete initial assessment. Pt known to this worker from previous stay. Verified contacts. Pt wishes to be DNR-CCA, no intubation. Nursing notified. Educated to [facility] insurance with NRD 05/02 and continued stay is not guaranteed with each review. Pt's goal is to return home alone managing ADLs and dtrs continuing to assist with IADLs and transportation. Pt does manage own meds/finances. SW will continue to follow for DC planning. Evangelina Pacheco SAUSAGE CUTTER DOUBLE HEAD MACHINE OPERATOR
--- NOTE | 2025-05-02 15:35 | NURSING ---
Went to follow-up on code status to have resident sign DNR form, she stated "oh, we changed that. I would want all that done." Clarified that if her heart were to stop or she were to stop breathing she would want chest compressions and intubation. She agreed she would those measures taken.
--- NOTE | 2025-05-02 15:38 | NURSING ---
Secure text to Dr. Mcghee about f/u appt. She said she will follow-up on resident here. Updated resident.
[2025-05-02 16:00] VITALS: BP 112/70; PULSE 77; RESP 20; TEMP 37.2; O2SAT 99
[2025-05-02 16:09] VITALS: BMI 30.9
--- NOTE | 2025-05-02 16:46 | NURSING ---
Patient requested PRN aerosol treatment and reports she gets periods of anxiety which affect her breathing. Dr. Justice was made aware and orders for PRN albuterol treatments and Xanax ordered. Patient made aware.
--- NOTE | 2025-05-02 19:02 | NURSING ---
Patient c/o of burning with urination and frequency. Dr. Justice made aware and order for UA C&S. Sample is collected and sent to lab.
[2025-05-02 20:08] VITALS: PULSE 81; O2SAT 98
--- NOTE | 2025-05-02 22:29 | NURSING ---
Nurse called lab and inquired about urinalysis results, informed that urine has not been run yet, but lab will run urine.
[2025-05-02 22:31] LABS: Mucous, Urine 0 SEEN /hpf (<or=2+)
[2025-05-02 22:33] LABS: Color, Urine Yellow (Yellow); Glucose, Dipstick Normal (Normal); Ketone-Dipstick Negative (Negative); Leukocyte Esterase-Dipstick 25 /ul (Negative); Nitrite-Dipstick Negative (Negative); Occult Blood-Urine 10 /ul (Negative); Protein-Dipstick 30 mg/dl (Negative); Specific Gravity, Urine 1.015 (1.002-1.030); Urine Bilirubin Dipstick Negative (Negative)
[2025-05-02 22:51] LABS: Yeast-Urine 2+ /hpf (None Seen)
[2025-05-02 22:52] LABS: Squamous Epithelial Cells - UA 5-10 SEEN /hpf (5-10)
[2025-05-02 22:53] LABS: Red Blood Cells-Urine 0-5 SEEN /hpf (0-5)
--- NOTE | 2025-05-03 00:18 | NURSING ---
Urinalysis results received, Dr. Justice updated via written communication.
[2025-05-03 08:24] VITALS: BP 138/78; PULSE 89; RESP 18; TEMP 36.8; O2SAT 100
[2025-05-03] MEDS: Umeclidinium Bromide Inhaler 1 PUFF INHALATION (08:28)
[2025-05-03] MEDS: MethylPREDNISolone DosePak 4 MG BOX PO ×4 (08:28→20:34)
[2025-05-03 08:29] VITALS: PULSE 89
[2025-05-03] MEDS: Metoprolol(XL)Succ 50 MG Tablet PO (08:29)
[2025-05-03] MEDS: Fluticasone Propion/Salmeterol 250-50 Inhaler 1 PUFF INHALATION ×2 (08:29→20:34)
[2025-05-03 09:45] VITALS: O2SAT 94
--- NOTE | 2025-05-03 13:26 | MDS.RN ---
Pain assessment for MDS complete.
--- NOTE | 2025-05-03 14:09 | CASEMGMT ---
Social Work IDT met with patient, two dtrs and ADEBAYO for care plan meeting. Discussed patient's progress in PT/OT/SN/RDN. Educated to [facility] with NRD 05/09 and continued stay is not guaranteed with each review. Provided pt/family with written communication of insurance process and copay coverage during stay. SW discussed recommendations with ADLs and IADL assistance at DC. Dtrs agreed as they assist pt daily and expressed no concerns for DC. SW inquired about palliative care, and noted SW referred to [facility] during previous TCU admission. Family agreeable to palliative care services and will notify this worker of AOC. SW will continue to follow for DC planning. Evangelina Pacheco AIRPORT SHUTTLE DRIVER TAPE RECORDER REPAIRER
[2025-05-03 14:55] VITALS: BP 101/73; PULSE 83; RESP 22; TEMP 36.8; O2SAT 98
[2025-05-03 20:20] VITALS: BP 124/75; PULSE 74; RESP 18; TEMP 36.9; O2SAT 97
[2025-05-04 08:33] VITALS: PULSE 80
[2025-05-04] MEDS: Metoprolol(XL)Succ 50 MG Tablet PO (08:33)
[2025-05-04] MEDS: MethylPREDNISolone DosePak 4 MG BOX PO ×3 (08:34→21:54)
[2025-05-04] MEDS: Umeclidinium Bromide Inhaler 1 PUFF INHALATION (08:34)
[2025-05-04] MEDS: Fluticasone Propion/Salmeterol 250-50 Inhaler 1 PUFF INHALATION ×2 (08:34→21:57)
[2025-05-04 08:42] VITALS: BP 124/73; PULSE 80; RESP 16; TEMP 36.7; O2SAT 92
[2025-05-04 15:01] VITALS: BP 101/64; PULSE 78; RESP 14; TEMP 36.9; O2SAT 97
[2025-05-05 09:00] VITALS: BP 106/56; PULSE 82; RESP 18; TEMP 36.1; O2SAT 98
[2025-05-05] MEDS: MethylPREDNISolone DosePak 4 MG BOX PO ×2 (09:03→21:25)
[2025-05-05 09:04] VITALS: PULSE 82
[2025-05-05] MEDS: Fluticasone Propion/Salmeterol 250-50 Inhaler 1 PUFF INHALATION ×2 (09:04→21:25)
[2025-05-05] MEDS: Umeclidinium Bromide Inhaler 1 PUFF INHALATION (09:04)
[2025-05-05] MEDS: Metoprolol(XL)Succ 50 MG Tablet PO (09:04)
--- NOTE | 2025-05-05 13:51 | CASEMGMT ---
BIMS () and PHQ2 (0) interviews completed on this date for MDS assessment. S Panchito RICHARD
[2025-05-05 16:00] VITALS: BP 111/67; PULSE 75; RESP 16; TEMP 36.6; O2SAT 75
[2025-05-05 21:13] VITALS: PULSE 79; RESP 20; O2SAT 96
[2025-05-06 06:18] VITALS: PULSE 86; RESP 18; O2SAT 99
[2025-05-06 07:00] VITALS: O2SAT 98
[2025-05-06] MEDS: Umeclidinium Bromide Inhaler 1 PUFF INHALATION (08:34)
[2025-05-06] MEDS: Fluticasone Propion/Salmeterol 250-50 Inhaler 1 PUFF INHALATION ×2 (08:34→21:09)
[2025-05-06] MEDS: MethylPREDNISolone DosePak 4 MG BOX PO (08:35)
[2025-05-06 08:37] VITALS: BP 131/81; PULSE 89
[2025-05-06] MEDS: Metoprolol(XL)Succ 50 MG Tablet PO (08:37)
[2025-05-06 15:03] VITALS: BP 112/73; PULSE 74; RESP 19; TEMP 36.6; O2SAT 97
[2025-05-06 20:08] VITALS: PULSE 64; O2SAT 99
[2025-05-07 08:47] VITALS: BP 103/61; PULSE 83
[2025-05-07] MEDS: Metoprolol(XL)Succ 50 MG Tablet PO (08:47)
[2025-05-07] MEDS: Fluticasone Propion/Salmeterol 250-50 Inhaler 1 PUFF INHALATION ×2 (08:48→21:13)
[2025-05-07] MEDS: Umeclidinium Bromide Inhaler 1 PUFF INHALATION (08:48)
[2025-05-07 16:00] VITALS: BP 105/68; PULSE 74; RESP 16; TEMP 36.5; O2SAT 100
[2025-05-07 20:15] VITALS: PULSE 80; O2SAT 99
[2025-05-08 05:41] LABS: Hematocrit 30.0 % (37-47); Hemoglobin 9.2 g/dL (12.0-15.0); Immature Granulocytes Count 0.090 X10^3/uL (0.0-0.0); Mean Corp Hgb Conc 30.7 g/dL (32-36); Mean Corpuscular Volume 98.0 fL (81-99); Mean Platelet Vol. 8.4 fl (6.2-12.0); NRBC Flagged by Analyzer 0 % (0-5); Platelet Count 265 K/mm3 (150-450); RBC Distribution Width CV 13.5 % (11.6-14.6); RBC Distribution Width SD 47.7 fl (35.1-43.9); Red Blood Count 3.06 M/mm3 (4.2-5.4); White Blood Count 6.7 K/mm3 (4.4-11.0)
[2025-05-08 05:45] VITALS: PULSE 76; O2SAT 98
[2025-05-08 06:18] LABS: Anion Gap 9 (5-15); BUN 29 mg/dL (4-19); BUN/Creat Ratio 36.2 RATIO (10-20); Calcium,Total 8.6 mg/dL (7.6-11.0); Carbon Dioxide 30.2 mmol/L (21.0-32.0); Chloride 100 mmol/L (98-108); Estimated Creatinine Clearance 51.41 ml/min (50-250); Glucose 120 mg/dL (70-99); Potassium 3.7 mmol/L (3.3-5.1)
[2025-05-08] MEDS: Umeclidinium Bromide Inhaler 1 PUFF INHALATION (08:21)
[2025-05-08] MEDS: Fluticasone Propion/Salmeterol 250-50 Inhaler 1 PUFF INHALATION ×2 (08:21→22:18)
[2025-05-08 08:22] VITALS: BP 117/80; PULSE 81
[2025-05-08] MEDS: Metoprolol(XL)Succ 50 MG Tablet PO (08:22)
--- NOTE | 2025-05-08 08:49 | NURSING ---
Activity Coordinators Note; MDS for 05/06/2025 Complete
[2025-05-08 08:58] VITALS: O2SAT 97
[2025-05-08 10:00] VITALS: BP 117/80; PULSE 81; RESP 18; TEMP 36.4; O2SAT 99
[2025-05-08] MEDS: Tuberculin,Purif.prot.deriv. 50 TU/ML Vial 0.1 ML ID (10:20)
[2025-05-09 05:51] LABS: Hematocrit 29.6 % (37-47); Hemoglobin 9.4 g/dL (12.0-15.0)
[2025-05-09 08:26] VITALS: BP 102/52; PULSE 86
[2025-05-09] MEDS: Metoprolol(XL)Succ 50 MG Tablet PO (08:26)
[2025-05-09] MEDS: Umeclidinium Bromide Inhaler 1 PUFF INHALATION (08:27)
[2025-05-09] MEDS: Fluticasone Propion/Salmeterol 250-50 Inhaler 1 PUFF INHALATION ×2 (08:27→21:00)
[2025-05-09 08:33] VITALS: BP 102/52; PULSE 86; RESP 19; TEMP 36.6; O2SAT 97
[2025-05-09 11:12] VITALS: BP 95/66; PULSE 81
[2025-05-09 16:00] VITALS: BP 102/64; PULSE 103; RESP 12; TEMP 36.5; O2SAT 97
--- NOTE | 2025-05-09 16:42 | CASEMGMT ---
Addendum entered by Evangelina Pacheco 05/10/25 11:29: SW faxed referral to [facility] Addendum entered by Evangelina Pacheco 05/09/25 17:41: Dtr returned call choosing [facility]. SW to place referral. Original Note: Social Work Insurance issued LCD 05/11, DC 05/12 SW spoke with pt to inform of DC date. SW provided NOMNC to pt and educated to appeal rights. Pt verbalized understanding and denied appeal. Pt is agreeable to DC. SW to contact dtr to update and confirm needs at home. SW inquired about skilled HHC and offered list of agencies. Pt denied list stating she [facility] prior and would like to use again. SW to coordinate. Pt has no DME needs. - JARVIS phoned referral to [facility]. - JARVIS phoned dtrRin, to update on DC plans. Dtr agreeable and will transport at OR. SW inquired about palliative care. Dtr agreed and will review the list and provide preference. Plan: DC home alone 05/12, [facility] PT/OT/ST/SN, Palliative Evangelina Pacheco PORTFOLIO ANALYST FRUIT CHECKER
[2025-05-09 16:54] VITALS: BMI 30.3
--- NOTE | 2025-05-09 19:44 | DS.PCM_ITS ---
Providers Date of Admission: 04/30/25 Primary Care Physician: Dr. Roderick Ryder MD Reason For Visit: HERNIA Diagnosis Discharge Diagnosis (1) Debility: Status: Acute Code(s): R53.81 - Other malaise (2) Small bowel obstruction: Status: Acute Code(s): K56.609 - Unspecified intestinal obstruction, unspecified as to partial versus complete obstruction (3) Right inguinal hernia: Status: Deleted Code(s): K40.90 - Unilateral inguinal hernia, without obstruction or gangrene, not specified as recurrent (4) Acute kidney injury: Status: Acute Code(s): N17.9 - Acute kidney failure, unspecified (5) Hypoglycemia: Status: Acute Code(s): E16.2 - Hypoglycemia, unspecified (6) Hypokalemia: Status: Acute Code(s): E87.6 - Hypokalemia (7) Sputum culture positive for Enterobacter species: Status: Acute Code(s): R84.5 - Abnormal microbiological findings in specimens from respiratory organs and thorax (8) Chronic obstructive pulmonary disease: Status: Chronic Code(s): J44.9 - Chronic obstructive pulmonary disease, unspecified Qualifiers: COPD type: unspecified COPD Qualified Code(s): J44.9 - Chronic obstructive pulmonary disease, unspecified (9) Type 2 diabetes mellitus with hyperglycemia: Status: Acute Code(s): E11.65 - Type 2 diabetes mellitus with hyperglycemia (10) Restless leg syndrome: Status: Acute Code(s): G25.81 - Restless legs syndrome (11) Depression: Status: Acute Code(s): F32.9 - Major depressive disorder, single episode, unspecified (12) Diabetic polyneuropathy: Status: Acute Code(s): E11.42 - Type 2 diabetes mellitus with diabetic polyneuropathy (13) Opioid dependence: Status: Acute Code(s): F11.20 - Opioid dependence, uncomplicated (14) Overactive bladder: Status: Acute Code(s): N32.81 - Overactive bladder (15) Muscle spasm: Status: Acute Code(s): M62.838 - Other muscle spasm (16) Iron deficiency anemia: Status: Acute Code(s): D50.9 - Iron deficiency anemia, unspecified Plan 79 year old female with below past medical history hospitalized for small bowel obstruction, underwent diagnostic laparoscopy, exploration right groin repair of femoral hernia with mesh 04/24/[address] Mcghee, postoperative course complicated by acute kidney injury, persistent hypoglycemia, hyopkalemia, Citrobacter/Enterobacter in sputum, admitted to TCU with debility, here for rehabilitation, strengthening, prior to discharge home alone. * Debility - PT/OT. * Pain - Tylenol 1000mg q6 prn pain (1-10). * Bowel - senna/colace 1 tablet bid prn. * Adult immunization - Administer pneumonia vaccine, covid vaccine, flu vaccine as appropriate. * DVT prophylaxis - Lovenox 40mg sc daily. * COPD - Wixela 250/50 1 puff q12, Incruse 1 puff daily, Albuterol 2.5mg q4 prn, add Medrol dose pack. * Muscle spasm - Baclofen 10mg tid. * Iron deficiency anemia - Iron sulfate 325mg daily. * Neuropathic pain - Gabapentin 100mg tid. * Hypertension - Metoprolol succinate 50mg daily, HCTZ 12.5mg q12. * Citrobacter/Enterobacter sputum - Levaquin 750mg po daily thru 05/04/2025. * Diabetes Mellitus II - Metformin 500mg daily. * Restless leg syndrome - Mirapex 0.75mg qhs. * Overactive bladder - Tolterodine 2mg daily. The following psychotropic medication was present on admission: Sertraline 50mg daily. Psychotropic medication therapy is indicated for a diagnosis of: Major Depression. Based on my clinical evaluation, continuation of the medication is necessary at this time. Gradual dose reduction plan (select one): ____ GDR will be attempted. Will monitor patient symptoms and behaviors in response to GDR. __x__ GRD contraindicated. Reason contraindicated: stable chronic alf use. Medications at Discharge Home Medications albuterol sulfate 90 mcg/actuation aerosol inhaler 2 puff inhalation Q4H PRN Sob &/Or Wheezing 10/14/18 metformin 500 mg tablet 500 mg PO DAILY Blood sugar 10/14/18 ropinirole 0.5 mg tablet 1.5 mg PO QHS Restless leg 10/14/18 Oxygen #1 ea 10/27/18 sertraline 50 mg tablet 50 mg PO DAILY Mood 07/25/21 metoprolol succinate 50 mg tablet,extended release 24 hr 50 mg PO DAILY BP/HR 30 days #0 tabs 12/15/22 budesonide 160 mcg-glycopyr 9 mcg-formot 4.8 mcg/actuation HFA inhaler (Breztri Aerosphere) 2 inh inhalation BID lungs 09/04/24 oxybutynin chloride 5 mg tablet,extended release 24 hr 5 mg PO DAILY bladder 09/04/24 gabapentin 100 mg capsule 100 mg PO TIDCM nerve pain 3 days #9 caps 04/30/25 acetaminophen 500 mg tablet 1,000 mg (2 x 500 mg) PO Q8 #0 tabs 05/09/25 amlodipine 5 mg tablet 5 mg PO DAILY 30 days #30 tabs 05/09/25 baclofen 10 mg tablet 10 mg PO TID 30 days #90 tabs 05/09/25 ferrous sulfate 325 mg (65 mg iron) tablet (FeroSul) 325 mg PO DAILY@1200 30 days #30 tabs 05/09/25 hydrochlorothiazide 25 mg tablet 25 mg PO DAILY 30 days #30 tabs 05/09/25 Hospital Course Operations - (See below.) Procedures None Summary of Care Provided Minutes Spent on Discharge: 35 Hospital Course: 79 year old female with below past medical history hospitalized for small bowel obstruction, underwent diagnostic laparoscopy, exploration right groin repair of femoral hernia with mesh 04/24/[address] Mcghee, postoperative course complicated by acute kidney injury, persistent hypoglycemia, hyopkalemia, Citrobacter/Enterobacter in sputum, admitted to TCU with debility, here for rehabilitation, strengthening, prior to discharge home alone. Discharge home alone 05/12/2025, [facility] PT/OT/ST/SN, palliative. Physical Exam Const alert General Appearance: cooperative HEENT normocephalic Eyes PERRL and EOMs intact bilaterally Neck supple, no JVD and no carotid bruits Resp normal respiratory effort, normal air movement and clear to auscultation bilaterally Cardio regular rate and regular rhythm GI normal to inspection, nondistended, normoactive bowel sounds, non-tender and non-distended Extremity normal capillary refill General Extremity: Negative for edema Skin no rashes or lesions noted General Skin Exam: no breakdown Psych affect normal Appearance: appropriate Weight / BMI Weight Weight: 70.534 kg Body Mass Index (BMI) 30.3 ABG / Lab / Microbiology Data 05/09/25 05:30 05/08/25 05:27 Laboratory: Laboratory Results - last 24 hr 05/09/25 05:30: Hgb 9.4 L, Hct 29.6 L 05/09/25 05:57: POC Glucose 112 H Microbiology: Microbiology 05/02/25 18:50 Urine, Catheterized Urine Culture - Final Yeast, not Lilia albicans Vancomycin Resist. E. faecium D/C Instructions Discharge Activity: Return to Normal Activity, May Shower and Use Walker Weight Bearing Status: Weight bearing as tolerated Call your doctor if you observe: Fever of 101 or Higher, Inability to urinate, Inability to have a bowel movement, Shortness of breath, Dizziness, Fainting spells, Swelling in the ankles, Chest pain and Uncontrolled pain DC O2, CPAP, BIPAP Needs Home O2 Discharge instructions: No Please Follow Up With: Ella Mcghee MD When: As scheduled. Meaningful Use Info Meaningful Use Meaningful Use Diagnoses (Choose all that apply): None applicable Discharge Plan Admission Admit Date/Time: 04/30/25 15:15 Primary Reason for Your Visit: Debility. Attending Provider: Gustavo Justice Chi Primary Care Provider: Roderick Ryder Instructions Additional Instructions / Restrictions: Discharge home alone 05/12/2025, [facility] PT/OT/ST/SN, palliative. Discharge Orders/Prescriptions Prescriptions: New amlodipine 5 mg Tablet 5 mg PO DAILY 30 Days Qty: 30 0RF acetaminophen 500 mg Tablet 1,000 mg PO Q8 Qty: 0 0RF baclofen 10 mg Tablet 10 mg PO TID 30 Days Qty: 90 0RF ferrous sulfate [FeroSul] 325 mg (65 mg iron) Tablet 325 mg PO DAILY@1200 30 Days Qty: 30 0RF hydrochlorothiazide 25 mg Tablet 25 mg PO DAILY 30 Days Qty: 30 0RF Continued metformin 500 mg tablet 500 mg PO DAILY albuterol sulfate 90 mcg/actuation HFA aerosol inhaler 2 puff INHALATION Q4H PRN (Reason: Sob &/Or Wheezing) ropinirole 0.5 mg tablet 1.5 mg PO QHS sertraline 50 mg Tablet 50 mg PO DAILY metoprolol succinate 50 mg tablet extended release 24 hr 50 mg PO DAILY 30 Days Qty: 0 0RF Rx Instructions: Hold for heart less than 50 or systolic blood pressure less than 100 mmHg. oxybutynin chloride 5 mg tablet extended release 24hr 5 mg PO DAILY Breztri Aerosphere 160-9-4.8 mcg/actuation HFA aerosol inhaler 2 inh INHALATION BID gabapentin 100 mg Capsule 100 mg PO TIDCM 3 Days Qty: 9 0RF Discontinued acetaminophen 500 mg Tablet 1,000 mg PO Q6H PRN PRN (Reason: Pain Score 1-3) Qty: 0 0RF hydrochlorothiazide 12.5 mg capsule 12.5 mg PO Q12H baclofen 10 mg tablet 10 mg PO TID ferrous sulfate [FeroSul] 325 mg (65 mg iron) tablet 325 mg PO DAILY.TCU levofloxacin 750 mg tablet 750 mg PO DAILY 3 Days Qty: 3 0RF No Action (DME) Oxygen 3 liters NC Qty: 1 Dose Instruction: As directed Patient Comments: per CM note pt wears 3 lpm continuous. DME: [facility] Rx Instructions: As directed Referrals / Follow Up: Roderick Ryder MD [Primary Care Provider, Medical] Disposition Disposition (needs filled in before D/C Order can be placed): Home Health Service
[2025-05-09] MEDS: Arthritis Pain Compound 60 CLICK TUBE TOPICAL (21:00)
[2025-05-10 00:56] VITALS: PULSE 70; RESP 20; O2SAT 97
[2025-05-10 07:00] VITALS: PULSE 71; RESP 16; O2SAT 95
[2025-05-10] MEDS: Albuterol 2.5 MG/3 ML VIAL.NEB. INHALATION (07:00)
[2025-05-10] MEDS: Fluticasone Propion/Salmeterol 250-50 Inhaler 1 PUFF INHALATION ×2 (08:40→20:00)
[2025-05-10] MEDS: Umeclidinium Bromide Inhaler 1 PUFF INHALATION (08:40)
[2025-05-10 08:41] VITALS: PULSE 83
[2025-05-10] MEDS: Metoprolol(XL)Succ 50 MG Tablet PO (08:41)
[2025-05-10] MEDS: Arthritis Pain Compound 60 CLICK TUBE TOPICAL ×2 (08:41→19:57)
[2025-05-10 08:49] VITALS: BP 126/73; PULSE 83; RESP 20; TEMP 36.4; O2SAT 100
--- NOTE | 2025-05-10 08:50 | RAD_ITS ---
PROCEDURE: ABDOMEN SINGLE VIEW 05/10/2025 REASON FOR EXAM: ABDOMINAL PAIN/CONSTIPATION/SBO TECHNIQUE: Procedure Code: RADABD Modality: DX Procedure: ABDOMEN SINGLE VIEW COMPARISON: April 25, 2025. FINDINGS: Bowel gas: Moderate constipation identified with fecal material distributed throughout the colon. No evidence of bowel obstruction. Calcifications: No suspicious calcifications. Bones: There are degenerative changes of the spine. Dextroscoliosis. Other: Atherosclerotic calcification of the distal descending and proximal abdominal aorta. RAD/Abdomen Single View IMPRESSION: Moderate amount of fecal material is seen in the colon. Reading Location: [facility]
[2025-05-10] MEDS: Magnesium Citrate 300 ML PO (10:55)
[2025-05-10 13:43] VITALS: O2SAT 96
[2025-05-10 18:45] VITALS: BP 115/71; PULSE 83
[2025-05-11 05:51] LABS: Hematocrit 29.6 % (37-47); Hemoglobin 9.2 g/dL (12.0-15.0)
[2025-05-11 07:49] VITALS: PULSE 88
[2025-05-11] MEDS: Metoprolol(XL)Succ 50 MG Tablet PO (07:49)
[2025-05-11] MEDS: Arthritis Pain Compound 60 CLICK TUBE TOPICAL ×2 (07:55→21:32)
[2025-05-11 07:59] VITALS: BP 150/80; PULSE 80; RESP 16; TEMP 36.7; O2SAT 94
[2025-05-11 08:19] VITALS: O2SAT 95
[2025-05-11] MEDS: Fluticasone Propion/Salmeterol 250-50 Inhaler 1 PUFF INHALATION ×2 (08:42→21:36)
[2025-05-11] MEDS: Umeclidinium Bromide Inhaler 1 PUFF INHALATION (08:43)
--- NOTE | 2025-05-11 12:04 | CASEMGMT ---
Social Work SW completed BIMS () and PHQ-2 () for MDS assessment. Evangelina Pacheco BOOM MASTER BALLISTIC TECHNICIAN
[2025-05-11 21:45] VITALS: PULSE 80; RESP 20; O2SAT 98
[2025-05-12 06:56] VITALS: PULSE 77; RESP 20; O2SAT 90
--- NOTE | 2025-05-12 08:37 | MDS.RN ---
Information for the MDS was obtained from review of the clinical record, interview of resident, staff, and direct observation of resident’s care.
[2025-05-12 08:53] VITALS: BP 103/59; PULSE 80; RESP 95; TEMP 36.6
[2025-05-12 09:02] VITALS: PULSE 80
[2025-05-12] MEDS: Metoprolol(XL)Succ 50 MG Tablet PO (09:02)
[2025-05-12] MEDS: Arthritis Pain Compound 60 CLICK TUBE TOPICAL (09:02)
[2025-05-12] MEDS: Umeclidinium Bromide Inhaler 1 PUFF INHALATION (09:05)
[2025-05-12] MEDS: Fluticasone Propion/Salmeterol 250-50 Inhaler 1 PUFF INHALATION (09:05)
[2025-05-12 14:05] VITALS: BP 110/75; PULSE 84; RESP 18; TEMP 36.6; O2SAT 94
== END 2025-05-12 14:05 | disposition home health service (06) | DRG 949 ==
PROVIDERS: Admitting Provider Family Medicine Geriatric Medicine; PCP Family Medicine; Visit Provider Family Medicine Geriatric Medicine
DX: Z48.815 Encounter for surgical aftercare following surgery on the digestive system (principal); K56.609 Unspecified intestinal obstruction, unspecified as to partial versus complete obstruction; K41.30 Unilateral femoral hernia, with obstruction, without gangrene, not specified as recurrent; F11.20 Opioid dependence, uncomplicated; E11.42 Type 2 diabetes mellitus with diabetic polyneuropathy; D50.9 Iron deficiency anemia, unspecified; E11.65 Type 2 diabetes mellitus with hyperglycemia; J44.9 Chronic obstructive pulmonary disease, unspecified; F32.9 Major depressive disorder, single episode, unspecified; G25.81 Restless legs syndrome; I10 Essential (primary) hypertension; K40.90 Unilateral inguinal hernia, without obstruction or gangrene, not specified as recurrent; M62.838 Other muscle spasm; M79.7 Fibromyalgia; F41.9 Anxiety disorder, unspecified; Z79.84 Long term (current) use of oral hypoglycemic drugs; Z79.899 Other long term (current) drug therapy; Z87.891 Personal history of nicotine dependence; N32.81 Overactive bladder; Z99.81 Dependence on supplemental oxygen; R84.5 Abnormal microbiological findings in specimens from respiratory organs and thorax
CPT/HCPCS: 36415; 74018; 80048; 81001; 82962; 85014; 85018; 85025; 87077; 87086; 87088; 87186; 92507; 92523; 94640; 97110; 97162; 97166; 97530; 97535; 97802

== ENCOUNTER 2025-05-17 12:34 | Emergency (ER) | payer MEDICARE, SELFPAY ==
[2025-05-17 12:34] VITALS: BP 99/64; PULSE 89; RESP 20; TEMP 36.6; O2SAT 95; BMI 33.3
--- NOTE | 2025-05-17 12:46 | RAD_ITS ---
PROCEDURE: CHEST PA AND LATERAL 05/17/2025 REASON FOR EXAM: RIGHT SIDED CHEST TIGHTNESS AND COUGH TECHNIQUE: Procedure Code: RADCXR Modality: DX Procedure: CHEST PA AND LATERAL COMPARISON: 04/25/2025 chest x-ray FINDINGS: Hardware: None Heart: The heart size is normal. Mediastinum: The mediastinal contour is unremarkable. Lungs: Ill-defined airspace opacities noted in the right lung base. Increased interstitial prominence. Bones: Degenerative changes are identified within the thoracic spine. RAD/Chest PA and Lateral IMPRESSION: Ill-defined airspace opacities noted in the right lung base. Increased interst itial prominence. Consider further evaluation with CT chest. Reading Location: [facility]
--- NOTE | 2025-05-17 12:46 | EKG12_ITS ---
Test Reason : cp Blood Pressure : */* mmHG Vent. Rate : 83 BPM Atrial Rate : 83 BPM P-R Int : 134 ms QRS Dur : 80 ms QT Int : 360 ms P-R-T Axes : 47 29 38 degrees QTcB Int : 423 ms Normal sinus rhythm Normal ECG When compared with ECG of 23-Apr-2025 20:25, Nonspecific T wave abnormality no longer evident in Anterior leads Confirmed by Neftaly Mckenzie ([id number]), film or videotape editor ALEIDA HARRIS ([id number]) on 05/18/2025 2:03:15 PM Referred By: Rangel Confirmed By: Neftaly Mckenzie
[2025-05-17 12:54] LABS: Hematocrit 30.3 % (37-47); Hemoglobin 9.3 g/dL (12.0-15.0); Immature Granulocytes Count 0.020 X10^3/uL (0.0-0.0); Mean Corp Hgb Conc 30.7 g/dL (32-36); Mean Corpuscular Volume 99.3 fL (81-99); Mean Platelet Vol. 9.4 fl (6.2-12.0); NRBC Flagged by Analyzer 0 % (0-5); Platelet Count 224 K/mm3 (150-450); RBC Distribution Width CV 14.1 % (11.6-14.6); RBC Distribution Width SD 51.1 fl (35.1-43.9); Red Blood Count 3.05 M/mm3 (4.2-5.4); White Blood Count 5.0 K/mm3 (4.4-11.0)
[2025-05-17 13:15] LABS: AST(SGOT) 25 U/L (<=31); Alanine Aminotransfer ALT/SGPT 27 U/L (<=34); Albumin, Serum 3.8 g/dL (3.4-4.8); Alkaline Phosphatase 73 U/L (35-104); Anion Gap 10 (5-15); BUN 22 mg/dL (4-19); BUN/Creat Ratio 25.7 RATIO (10-20); Calcium,Total 9.1 mg/dL (7.6-11.0); Carbon Dioxide 30.2 mmol/L (21.0-32.0); Chloride 101 mmol/L (98-108); Estimated Creatinine Clearance 51.01 ml/min (50-250); Globulin 2.4 g/dL (2.2-4.2); Glucose 135 mg/dL (70-99); Potassium 4.0 mmol/L (3.3-5.1); Pro- Brain NATRIURETIC PEPTIDE 421 pg/mL (<=1800)
[2025-05-17 13:19] LABS: Troponin T High Sensitivity 15 ng/L (<=14)
[2025-05-17 13:34] VITALS: BP 123/76; PULSE 88; RESP 22; O2SAT 99
[2025-05-17 14:00] VITALS: BP 123/76; PULSE 80; RESP 16; O2SAT 99
[2025-05-17 15:00] VITALS: BP 127/80; PULSE 83; O2SAT 99
[2025-05-17 15:13] LABS: Troponin T High Sens 2 HR 14 ng/L (<=14)
--- NOTE | 2025-05-17 15:31 | EX.ED.DYSGE1 ---
HPI History of Present Illness Chief Complaint: Chest Pain Detail of Chief Complaint: Anterior right-sided chest pain described as sharp pressure with pleuritic Informant: patient Onset/Context/Timing Onset: Weeks (Onset 1 week ago.) Timing: Continuous and Waxes and wanes Quality: Pain described as sharp Location: Anterior right chest Current Severity: Mild Maximum Severity: Moderate Worsened by: Breathing Associated Symptoms Associated Symptoms: Slight cough Narrative Narrative: Patient is a 79-year-old woman. She has history of type 2 diabetes, essential hypertension, COPD, GERD, lymphedema, upper GI bleed, ascending aortic aneurysm, kidney disease who presents with right sided anterior chest pain worse with breathing. It is described as sharp pressure. She does have a cough. She complained of subjective fever with chills last evening. She is on chronic oxygen. She denies headache, visual, ocular auditory symptoms. She denies sore throat, postnasal drainage or rhinorrhea. There is no history of trauma. She has no history of PE. She denies leg pain or discoloration. She does have swelling since she is not that mobile. She denies abdominal pain, nausea, vomiting or diarrhea. She denies dysuria, frequency, urgency or hematuria. Prior similar symptoms: No Recent Illness/Hospitalization: No PFSH PFS Medical History VRE (vancomycin resistant enterococcus) culture positive Incarcerated femoral hernia Nausea & vomiting Complete obstruction of small intestine Femoral hernia of right side with obstruction Ascending aortic aneurysm Upper GI bleed Aortic dissection, abdominal Weakness Venous stasis ulcer of left lower leg with edema of left lower leg Right knee pain Debility Generalized muscle weakness Edema of both lower extremities Muscle spasm RLS (restless legs syndrome) GERD (gastroesophageal reflux disease) MICHEL (obstructive sleep apnea) Morbid obesity with BMI of 40.0-44.9, adult Degenerative disc disease, lumbar Type 2 diabetes mellitus without complication Osteoarthritis Essential hypertension Fibromyalgia Depression COPD (chronic obstructive pulmonary disease) Home Medications ?Medication ?Instructions ?Recorded ?Last Taken ?Type albuterol sulfate 90 mcg/actuation 2 puff inhalation Q4H PRN Sob &/Or 10/14/18 Unknown History aerosol inhaler Wheezing metformin 500 mg tablet 500 mg PO DAILY Blood sugar 10/14/18 12/10/22 History ropinirole 0.5 mg tablet 1.5 mg PO QHS Restless leg 10/14/18 12/09/22 History Oxygen #1 ea 10/27/18 Unknown History sertraline 50 mg tablet 50 mg PO DAILY Mood 07/25/21 12/10/22 History metoprolol succinate 50 mg 50 mg PO DAILY BP/HR 30 days #0 12/15/22 Unknown Rx tablet,extended release 24 hr tabs budesonide 160 mcg-glycopyr 9 2 inh inhalation BID lungs 09/04/24 Unknown History mcg-formot 4.8 mcg/actuation HFA inhaler (Breztri Aerosphere) oxybutynin chloride 5 mg 5 mg PO DAILY bladder 09/04/24 Unknown History tablet,extended release 24 hr gabapentin 100 mg capsule 100 mg PO TIDCM nerve pain 3 days 04/30/25 Unknown Rx #9 caps acetaminophen 500 mg tablet 1,000 mg (2 x 500 mg) PO Q8 #0 tabs 05/09/25 Unknown Rx baclofen 10 mg tablet 10 mg PO TID 30 days #90 tabs 05/09/25 Unknown Rx ferrous sulfate 325 mg (65 mg 325 mg PO DAILY@1200 30 days #30 05/09/25 Unknown Rx iron) tablet (FeroSul) tabs hydrochlorothiazide 25 mg tablet 25 mg PO DAILY 30 days #30 tabs 05/09/25 Unknown Rx levofloxacin 500 mg tablet 500 mg PO DAILY #7 tabs 05/17/25 Unknown Rx Allergy/AdvReac Type Severity Reaction Status Date / Time lisinopril AdvReac Intermediate cough Verified 05/17/25 12:38 pregabalin (From Lyrica) AdvReac Swelling Verified 05/17/25 12:38 Family History Mother Cancer lymphoma Father COPD (chronic obstructive pulmonary disease) Cancer bone Son Heart disease ischemic heart disease Surgical History S/P hernia repair History of appendectomy History of tonsillectomy History of hysterectomy Social History household members: none housing: house Smoking Status: Former smoker how long ago did patient quit smokin.5 years ago alcohol intake: current alcohol intake frequency: holidays/special occasions only substance use type: does not use caffeine: Yes Type: coffee Number of servings: 1 ROS ROS ED Constitutional Constitutional ED: Reports chills, fever(s) and subjective; Denies sweats or weight loss Eyes Eyes: Denies blurry vision or change in vision ENT ENT ED: Denies ear pain, rhinorrhea or sore throat Cardiovascular Cardiovascular: Reports chest pain; Denies palpitations, paroxysmal nocturnal dyspnea or racing heartbeat Respiratory/Chest Respiratory/Chest: Reports cough and dyspnea; Denies dyspnea on exertion, paroxysmal nocturnal dyspnea or sputum Gastrointestinal Gastrointestinal: Denies abdominal pain, diarrhea, melena, nausea or vomiting Genitourinary Genitourinary ED: Denies dysuria, hematuria or urinary frequency Musculoskeletal Musculoskeletal: Denies arthralgias or myalgias Integumentary Denies rash Neurologic Neurologic: Reports weakness; Denies headache(s) or paresthesias Hematologic/Lymphatic Hematologic/Lymphatic: Reports systems reviewed and no addt'l complaints, except as documented Allergic/Immunologic Allergic/Immunologic ED: Denies mouth swelling or tongue swelling EXAM Physical Exam Const Vital Signs: 05/17/25 12:34 05/17/25 12:39 05/17/25 13:34 Temperature 98 F Temperature Source Oral Pulse Rate 89 88 Respiratory Rate 20 H 22 H Respiratory Effort Normal Non-Labored Blood Pressure 99/64 123/76 H Blood Pressure Mean 75 91 Pulse Ox 95 99 Oxygen Delivery Method Nasal Cannula Nasal Cannula Oxygen Flow Rate (L/min) 2 2 05/17/25 14:00 05/17/25 15:00 Temperature Temperature Source Pulse Rate 80 83 Respiratory Rate 16 Respiratory Effort Blood Pressure 123/76 H 127/80 H Blood Pressure Mean 91 95 Pulse Ox 99 99 Oxygen Delivery Method Oxygen Flow Rate (L/min) Positive well nourished, well developed and obese Constitutional Narrative: BMI is 33.4. Vital signs noted. She was initially slightly hypotensive. She is not hypoxic on oxygen. General Appearance ED: well developed; Negative for pallor Nutritional Appearance: obese HEENT Reports moist mucous membranes HEENT Narrative: Head is atraumatic and normocephalic. Ears are normal. Nares are patent. Posterior pharynx is normal. Eyes PERRL and EOMs intact bilaterally Neck no lymphadenopathy, supple and no JVD Chest Wall inspection of chest normal and palpation of chest normal Resp normal respiratory effort and No clear to auscultation bilaterally Resp Narrative: Rales right lower base. Breath sounds are symmetric. There is no wheezing noted. Cardio regular rate, regular rhythm, S1 normal heart sound, S2 normal heart sound and no murmurs GI normal to inspection, nondistended, normoactive bowel sounds, non-tender, non-distended and no masses; Negative for hepatosplenomegaly Extremity Extremity Narrative: Venous stasis dermatitis. She has had scarring from prior ulcers. Neuro oriented x3 and CN's II-XII intact bilaterally Sensorium / Orientation: alert Psych mental status grossly normal Skin no rashes or lesions noted, no wounds and skin turgor normal General Skin Exam: Negative for jaundice or pallor MDM MDM MDM Narrative Medical decision making narrative: Differential diagnosis would include pneumonia, pneumothorax, pulmonary embolus, chest pain of unknown etiology, pleurisy. Workup included CBC, electrolyte panel, troponin to rule out atypical presentation for cardiac. Lab Data Attestation: I reviewed the patient's lab results. Lab results narrative: CBC reveals mild anemia. She is at her baseline. Competence of metabolic panel reveals an elevated BUN to creatinine ratio. Glucose is slightly over 135 with normal CO2 anion gap. First troponin was slightly low at 15. 2 hours 14. Delta is -1. BNP is normal. Labs: Laboratory Results - last 24 hr 05/17/25 05/17/25 12:49 14:41 WBC 5.0 RBC 3.05 L Hgb 9.3 L Hct 30.3 L MCV 99.3 H MCH 30.5 MCHC 30.7 L RDW Std Deviation 51.1 H RDW Coeff of Stephenie 14.1 Plt Count 224 MPV 9.4 Immature Gran % (Auto) 0.400 Neut % (Auto) 64.4 Lymph % (Auto) 15.7 L [place] % (Auto) 14.7 H Eos % (Auto) 4.0 Baso % (Auto) 0.8 Absolute Neuts (auto) 3.2 Absolute Lymphs (auto) 0.79 L Nucleated RBC % 0 Sodium 141 Potassium 4.0 Chloride 101 Carbon Dioxide 30.2 Anion Gap 10 BUN 22 H Creatinine 0.85 Estim Creat Clear Calc 51.01 Est GFR (MDRD) Non-Af 71 BUN/Creatinine Ratio 25.7 H Glucose 135 H Calcium 9.1 Total Bilirubin 0.28 AST 25 ALT 27 Alkaline Phosphatase 73 Troponin T High Sens 15 H Troponin T Hi Sens 2 Hr 14 NT pro BNP II 421 Total Protein 6.1 Albumin 3.8 Globulin 2.4 Albumin/Globulin Ratio 1.6 Radiography Chest X-Ray - ED: Read by ED Physician (2 view chest x-ray reveals increased interstitial markings right lower lobe. This is where patient noted to have rales and has pleuritic pain. Suspect this is the cause of her pain. Will treat with antibiotics. She is a candidate for outpatient therapy since she is not hemodynamically stable and) Diagnostic Testing: Clinical Impression(s) from Imaging Studies Chest X-Ray 05/17/25 12:46 IMPRESSION: Ill-defined airspace opacities noted in the right lung base. Increased interstitial prominence. Consider further evaluation with CT chest. Reading Location: [facility] She does not requiring any additional oxygen from baseline. If patient does not improve CT of the chest can be obtained as an outpatient. Differential Diagnosis Chest pain/SOB: ACS ACS: Positive for no evidence of ACS based on cardiac biomarkers, EKG without ischemia and history not suggestive of ischemia pain, pneumothorax Reason(s) pneumothorax less likely: Positive for bilateral breath sounds and ALTERNATIVE FINANCING SPECIALIST withhout PTX, aortic dissection Reason(s) Aortic dissection less likely:: Positive for normal vascular exam, no history of HTN, normal neurological exam, no significant risk factors for dissection, no widened mediastinum on CXR, pain not sudden onset, no ripping/tearing pain, no pain to back and blood pressure appropriate in ED and CHF Reason(s) CHF less likely: Positive for no orthopnea, no evidence of fluid overload on CXR and BtNP not significantly elevated over normal/baseline; Negative for pneumonia Discharge Plan Triage Chief Complaint: Chest Pain ED Provider: Gentry Reno Dx/Rx/DC Orders Clinical Impression: Right lower lobe pneumonia, Chest pain, pleuritic, Adult BMI 33.0-33.9 kg/sq m, Lymphedema of both lower extremities, Anemia, unspecified, Acute prerenal azotemia Instructions: ED Pneumonia (Adult) Prescriptions: New levofloxacin 500 mg tablet 500 mg PO DAILY Qty: 7 0RF No Action (DME) Oxygen 3 liters NC Qty: 1 Dose Instruction: As directed Patient Comments: per CM note pt wears 3 lpm continuous. DME: [facility] Rx Instructions: As directed metformin 500 mg tablet 500 mg PO DAILY albuterol sulfate 90 mcg/actuation HFA aerosol inhaler 2 puff INHALATION Q4H PRN (Reason: Sob &/Or Wheezing) ropinirole 0.5 mg tablet 1.5 mg PO QHS sertraline 50 mg Tablet 50 mg PO DAILY metoprolol succinate 50 mg tablet extended release 24 hr 50 mg PO DAILY 30 Days Qty: 0 0RF Rx Instructions: Hold for heart less than 50 or systolic blood pressure less than 100 mmHg. oxybutynin chloride 5 mg tablet extended release 24hr 5 mg PO DAILY Breztri Aerosphere 160-9-4.8 mcg/actuation HFA aerosol inhaler 2 inh INHALATION BID gabapentin 100 mg Capsule 100 mg PO TIDCM 3 Days Qty: 9 0RF acetaminophen 500 mg Tablet 1,000 mg PO Q8 Qty: 0 0RF baclofen 10 mg Tablet 10 mg PO TID 30 Days Qty: 90 0RF ferrous sulfate [FeroSul] 325 mg (65 mg iron) Tablet 325 mg PO DAILY@1200 30 Days Qty: 30 0RF hydrochlorothiazide 25 mg Tablet 25 mg PO DAILY 30 Days Qty: 30 0RF Primary Care Provider: Roderick Ryder Referrals: Roderick Ryder MD [Primary Care Provider, Medical] - 1 Week Print Language: Vincentian Disposition Disposition: Home, Self Care
[2025-05-17 15:47] VITALS: BP 127/80; PULSE 83; RESP 16; TEMP 36.8; O2SAT 99
== END 2025-05-17 15:56 | disposition home or self-care (01) ==
PROVIDERS: Emergency Provider Emergency Medicine; PCP Family Medicine; Visit Provider Emergency Medicine
DX: J18.9 Pneumonia, unspecified organism (principal); J44.0 Chronic obstructive pulmonary disease with (acute) lower respiratory infection; E11.9 Type 2 diabetes mellitus without complications; I89.0 Lymphedema, not elsewhere classified; R06.00 Dyspnea, unspecified; D64.9 Anemia, unspecified; I10 Essential (primary) hypertension; E66.9 Obesity, unspecified; Z68.33 Body mass index [BMI] 33.0-33.9, adult; Z99.81 Dependence on supplemental oxygen; Z79.51 Long term (current) use of inhaled steroids; Z79.84 Long term (current) use of oral hypoglycemic drugs; Z79.899 Other long term (current) drug therapy; Z87.891 Personal history of nicotine dependence
CPT/HCPCS: 71046; 80053; 83880; 84484; 85025; 93005; 99285; A4216

== ENCOUNTER 2025-05-20 17:59 | Emergency (ER) | payer MEDICARE, SELFPAY ==
[2025-05-20 18:05] VITALS: BP 0/0
--- NOTE | 2025-05-20 18:10 | CM.ED ---
Social Work Date of referral: 05/20/25 Reason for referral: Code Blue Patient arrived at ED by squad. No family members/friends present. Principal Research Economist remained until no needs were identified. Juhi Coleman, CONSUMER PRODUCT ADVISOR, CONTRACTS LAW PROFESSOR
[2025-05-20 18:13] VITALS: BP 0/0; PULSE 0; RESP 0; TEMP -17.7; TEMP 0; O2SAT 0; O2SAT 55
--- NOTE | 2025-05-20 18:13 | EDS_ITS ---
HPI History of Present Illness Chief Complaint: Cardiac Arrest Informant: EMS Narrative Narrative: 79-year-old female found on the ground by neighbor. EMS states the walker was on top of her. They note that she was warm to the touch but was in asystole. ACLS protocol was instituted. She has received multiple rounds of epinephrine defibrillation bicarb and amiodarone. Initial 911 call was reported at 1711. Patient with a medical history including COPD congestive heart failure aortic dissection diabetes. CPR being performed by Carlos device. There is a gel LMA in the oral airway. I spoke with family after the code the patient pronounced . They note that she was in the emergency room on the 10th and was diagnosed with pneumonia. She had a hernia surgery around a month ago. They were with her today and she ate some [employer]. They note that she continued to have pain in the right lower chest where she was diagnosed with pneumonia. They note that she was not significantly short of breath or seemed to be gasping. She chronically wears oxygen. [facility] Medical History VRE (vancomycin resistant enterococcus) culture positive Incarcerated femoral hernia Nausea & vomiting Complete obstruction of small intestine Femoral hernia of right side with obstruction Ascending aortic aneurysm Upper GI bleed Aortic dissection, abdominal Weakness Venous stasis ulcer of left lower leg with edema of left lower leg Right knee pain Debility Generalized muscle weakness Edema of both lower extremities Muscle spasm RLS (restless legs syndrome) GERD (gastroesophageal reflux disease) MICHEL (obstructive sleep apnea) Morbid obesity with BMI of 40.0-44.9, adult Degenerative disc disease, lumbar Type 2 diabetes mellitus without complication Osteoarthritis Essential hypertension Fibromyalgia Depression COPD (chronic obstructive pulmonary disease) Home Medications ?Medication ?Instructions ?Recorded ?Last Taken ?Type albuterol sulfate 90 mcg/actuation 2 puff inhalation Q 4H PRN Sob &/Or 10/14/18 Unknown History aerosol inhaler Wheezing metformin 500 mg tablet 500 mg PO DAILY Blood sugar 10/14/18 12/10/22 History ropinirole 0.5 mg tablet 1.5 mg PO QHS Restless leg 0 10/14/18 12/09/22 History Oxygen #1 ea 10/27/18 Unknown Histo ry sertraline 50 mg tablet 50 mg PO DAILY Mood 07/25/21 12/10/22 History metoprolol succinate 50 mg 50 mg PO DAILY BP/HR 30 day s #0 12/15/22 Unknown Rx tablet,extended release 24 hr tabs budesonide 160 mcg-glycopyr 9 2 inh inhalation BID dean gs 09/04/24 Unknown History mcg-formot 4.8 mcg/actuation HFA inhaler (Breztri Aerosphere) oxybutynin chloride 5 mg 5 mg PO DAILY bladder Unknown History tablet,extended release 24 hr gabapentin 100 mg capsule 100 mg PO TIDCM nerve pain 3 days 04/30/25 Unknown Rx #9 caps acetaminophen 500 mg tablet 1,000 mg (2 x 500 mg) PO Q 8 #0 tabs 05/09/25 Unknown Rx baclofen 10 mg tablet 10 mg PO TID 30 days #90 tab s 05/09/25 Unknown Rx ferrous sulfate 325 mg (65 mg 325 mg PO DAILY@1200 30 days #30 05/09/25 Unknown Rx iron) tablet (FeroSul) tabs hydrochlorothiazide 25 mg tablet 25 mg PO DAILY 30 day s #30 tabs 05/09/25 Unknown Rx levofloxacin 500 mg tablet 500 mg PO DAILY #7 tabs 04/01 Unknown Rx Allergy/AdvReac Type Severity Reaction Status Date / Time lisinopril AdvReac Intermediate cough Verified 05/20/25 18:13 pregabalin (From Lyrica) AdvReac Swelling Verified 05/20/25 18:13 Family History Mother Cancer lymphoma Father COPD (chronic obstructive pulmonary disease) Cancer bone Son Heart disease ischemic heart disease Surgical History S/P hernia repair History of appendectomy History of tonsillectomy History of hysterectomy Social History household members: none housing: house Smoking Status: Unknown if ever smoked how long ago did patient quit smokin.5 years ago alcohol intake: current alcohol intake frequency: holidays/special occasions only substance use type: does not use caffeine: Yes Type: coffee Number of servings: 1 ROS ROS ED Review of Systems ROS Unobtainable: due to endotracheal tube EXAM Physical Exam Const Vital Signs: 05/20/25 18:05 05/20/25 18:13 05/20/25 18:16 Temperature 0 F L 0 F L Temperature Source Oral Pulse Rate 0 L 0 L Respiratory Rate 0 L 0 L Blood Pressure 0/0 L 0/0 L 0/0 L Pulse Ox 0 0 Oxygen Delivery Method Ambu-Bag Oxygen Flow Rate (L/min) 15 Positive well nourished and obese Nutritional Appearance: obese HEENT Reports normocephalic and moist mucous membranes HEENT Narrative: There is an LMA in the airway. There is dark red blood from the mouth Eyes Eyes Narrative: Pupils are fixed at 4 mm bilaterally Neck no lymphadenopathy and no JVD Resp Resp Narrative: Bagged respirations Cardio Rate: other Other Details: No palpable pulse GI Auscultation: hypoactive bowel sounds Palpation: soft Extremity Extremity Narrative: There is an intraosseous line in the left humerus General Extremety ED: Yes edema General Extremity: edema bilateral lower extremity Details: mild Neuro Neuro Narrative: Unresponsive Psych Mood & Affect: tearful Skin no rashes or lesions noted and no wounds MDM MDM MDM Narrative Medical decision making narrative: Patient was in asystole with the occasional escape beat noted upon arrival in the resuscitation room. Epinephrine was given and circulated for 2 minutes. Repeat pulse check shows asystole with agonal escapes. There is no motion on cardiac ultrasound no palpable pulse. Patient was pronounced at 1805 after almost 1 hour of ACLS. History & Record Review Discussion w/independent historian: EMS personnel Discharge Plan Triage Chief Complaint: Cardiac Arrest ED Provider: Viraj Dozier Dx/Rx/DC Orders Clinical Impression: Cardiac arrest Prescriptions: No Action (DME) Oxygen 3 liters NC Qty: 1 Dose Instruction: As directed Patient Comments: per CM note pt wears 3 lpm continuous. DME: [facility] Rx Instructions: As directed metformin 500 mg tablet 500 mg PO DAILY albuterol sulfate 90 mcg/actuation HFA aerosol inhaler 2 puff INHALATION Q4H PRN (Reason: Sob &/Or Wheezing) ropinirole 0.5 mg tablet 1.5 mg PO QHS sertraline 50 mg Tablet 50 mg PO DAILY metoprolol succinate 50 mg tablet extended release 24 hr 50 mg PO DAILY 30 Days Qty: 0 0RF Rx Instructions: Hold for heart less than 50 or systolic blood pressure less than 100 mmHg. oxybutynin chloride 5 mg tablet extended release 24hr 5 mg PO DAILY Kayla Aerosphere 160-9-4.8 mcg/actuation HFA aerosol inhaler 2 inh INHALATION BID gabapentin 100 mg Capsule 100 mg PO TIDCM 3 Days Qty: 9 0RF acetaminophen 500 mg Tablet 1,000 mg PO Q8 Qty: 0 0RF baclofen 10 mg Tablet 10 mg PO TID 30 Days Qty: 90 0RF ferrous sulfate [FeroSul] 325 mg (65 mg iron) Tablet 325 mg PO DAILY@1200 30 Days Qty: 30 0RF hydrochlorothiazide 25 mg Tablet 25 mg PO DAILY 30 Days Qty: 30 0RF levofloxacin 500 mg tablet 500 mg PO DAILY Qty: 7 0RF Primary Care Provider: Roderick Ryder Referrals: Roderick Ryder MD [Primary Care Provider, Medical] Print Language: Honduran Disposition Disposition: Date/Time: 05/20/25 18:05
[2025-05-20 18:16] VITALS: BP 0/0; PULSE 0; RESP 0; TEMP -17.7; TEMP 0; O2SAT 0
--- OUTSIDE RECORDS SUMMARY | 2025-05-20 18:17 | XMS RPT_ITS | CCD ---
Author Organization [facility] Care Team Providers Care Printed Circuit Board Pcb Designer Name Role Phone SCOOTER JUAREZ Admitting Unavailable [...] Provider Dr. Burke Velez Attending Provider Rachel SOCIAL SCIENCE INSTRUCTOR, SOCIAL SCIENCE INSTRUCTOR-C Ajay Attending Provider Rachel SOCIAL SCIENCE INSTRUCTOR, SOCIAL SCIENCE INSTRUCTOR-C Ajay Other Provider Dr. Jalyn Smith Primary [...] Care Provider Tami FLORES, Selene Unavailable Haagen TRANSIT COACH OPERATOR.KILN STOKER, Marjan Unavailable Suppan TRANSIT COACH OPERATOR.KILN STOKER, Casandra A Unavailable [phone] Suppan TRANSIT COACH OPERATOR.KILN STOKER, Casandra A Unavailable Dr. Jalyn Smith MD Primary Care Provider Humberto MISTRY, Dr. Neely Attending Provider Dr. Chin Paul MD Referring Provider Dr. Viraj Dozier DO Emergency Provider [phone] Jalyn Smith Primary Care Unavailable Viraj Dozier Attending Unavailable Chin Paul Attending Unavailable Chin Paul Referring Unavailable Jalyn Smith Primary Care Unavailable JALYN SMITH Primary Care Unavailable YANIV TODD Referring Unavailable LUIS, JALYN Islas Primary Care Unavailable YANIV TODD Referring Unavailable LUIS, JALYN Islas Referring Unavailable LUIS, JALYN Islas Primary Care Unavailable LUIS, JALYN Islas Attending Unavailable LUIS, AJLYN Islas Primary Care Unavailable ORAL PERDUE Attending [...] [LISINOPRIL] Drug Allergy 7 Other: See Comments [facility] Work Phone: (20 sources) pregabalin; Translations: [PREGABALIN] Drug Allergy 9 Swelling [facility] Work Phone: (1 source) Lisinopril Drug Allergy 5 [facility] Repository (1 source) pregabalin Drug Allergy 5 [facility] Repository Medications Current Medications Medication Drug [...] every 6 hours as needed for Pain. [id number] 200 actuat albuterol 0.09 mg/actuat metered dose [...] (20 sources) Corticosteroid, beta2-Adrenergic Agonist Start: 09-04-2024 Anzpyiabkk-Dlqqmorp-Kij moterol [Budesonide 160 Mcg-Glycopyr 9 Mcg-Formot 4.8 Mcg/Actuation Hfa Inhaler] (Budesonide 160 Mcg-Glycopyr 9 Mcg-Formot 4.8 ) 160-9-4.8 mcg/actuation HFA aerosol inhaler Active 2 NMA INHALATION TWICE A DAY September 04, 2024 12:00am Start: 05-17-2024 End: 11-29-2025 take 2 puff(s) by inhalation twice daily giwqptnozv-mvwkztbc-vzielyqsga (BREZTRI AEROSPHERE) 160-9-4.8 mcg/actuation HFA aerosol inhaler Indications: COPD, severe (HCC) Inhale 2 puffs as instructed two times a day. 3 each 3 11/29/2024 11/29/2025 Active Start: 02-01-2024 End: 07-30-2024 take 2 puff(s) by inhalation twice daily ugyfiumavh-jpnfemhj-wkfrcscfff (BREZTRI) 160-9-4.8 mcg/actuation HFA aerosol inhaler Indications: COPD, severe (HCC) Inhale 2 Puffs as instructed two times a day. 10.7 g 5 02/01/2024 05/17/2024 Discontinued Start: 11-18-2023 End: 11-17-2024 take 2 puff(s) by inhalation twice daily fizgetjcbh-tlqwfgxu-iuvumbldik (BREZTRI) 160-9-4.8 mcg/actuation HFA aerosol inhaler Indications: COPD, severe (HCC) Inhale 2 Puffs as instructed two times a day. 32.1 g 3 11/18/2023 02/01/2024 Discontinued Start: 09-30-2023 End: 11-18-2023 take 2 puff(s) by inhalation twice daily vxjrrtzvdu-jictmmwo-cayixlnfxv (BREZTRI) 160-9-4.8 mcg/actuation HFA aerosol inhaler Indications: [...] on above: Take 1 capsule by mo [facility] every 6 hours. Take 1 capsule by mo [facility] four times daily for 10 days. COMPOUNDED [...] (FLONASE) 50 mcg/actuation nasal spray Use 1 Westhoff in each nostril once daily. 1 Each 5 02/22/2021 05/12/2022 Discontinued Comment on above: Use 1 Westhoff in each nostril once daily. USE 1 [...] less than 100 Take [facility]. Hold if HR is [...] on above: Take 3 tablets by mo [facility] daily at bedtime. sertraline 50 mg oral [...] day. docusate sodium 50 mg / sennosides, senior care 8.6 mg oral tablet (19 sources) Start: [...] Basophils (Bld) [#/Vol] 0.04 10*3/uL Normal <0.11 [facility] Comment on above: Order Comment: Rg burgos Type: BLOOD SPECIMEN Ordering Facility: [facility] Address: [address] [place] [address] Performed By: #### 5 7021-8 #### [facility] CLIA [id number] [address] [place] [address] [place] Basophils/100 WBC (Bld) 0.7 % Normal [facility] Comment on above: Order Comment: Rg burgos Type: BLOOD SPECIMEN Ordering Facility: [facility] Address: [address] [place] [address] Performed By: #### 5 7021-8 #### [facility] CLIA [id number] [address] [place] [address] [place] Differential cell count method Nom (Bld) Auto Normal [facility] Comment on above: Order Comment: Rg burgos Type: BLOOD SPECIMEN Ordering Facility: [facility] Address: [address] [place] [address] Performed By: #### 5 7021-8 #### [facility] CLIA [id number] [address] [place] [address] [place] Eosinophils (Bld) [#/Vol] 0.11 10*3/uL Normal <0.46 [facility] Comment on above: Order Comment: Speci men Type: BLOOD SPECIMEN Ordering Facility: [facility] Address: [address] [place] [address] Performed By: #### 5 7021-8 #### [facility] CLIA [id number] [address] [place] [address] [place] Eosinophils/100 WBC (Bld) 1.9 % Normal [facility] Comment on above: Order Comment: Speci men Type: BLOOD SPECIMEN Ordering Facility: [facility] Address: [address] [place] [address] Performed By: #### 5 7021-8 #### [facility] CLIA [id number] [address] [place] [address] [place] Erythrocyte distribution width (RBC) [Ratio] 13.0 % Normal 11.5-15.0 [facility] Comment on above: Order Comment: Speci men Type: BLOOD SPECIMEN Ordering Facility: [facility] Address: [address] [place] [address] Performed By: #### 5 7021-8 #### [facility] CLIA [id number] [address] [place] [address] [place] Hematocrit (Bld) [Volume fraction] 33.9 % Low 36.0-46.0 [facility] Comment on above: Order Comment: Speci men Type: BLOOD SPECIMEN Ordering Facility: [facility] Address: [address] [place] [address] Performed By: #### 5 7021-8 #### [facility] CLIA [id number] [address] [place] [address] [place] Hemoglobin (Bld) [Mass/Vol] 10.9 g/dL Low 11.5-15.5 [facility] Comment on above: Order Comment: Speci men Type: BLOOD SPECIMEN Ordering Facility: [facility] Address: [address] [place] [address] Performed By: #### 5 7021-8 #### [facility] CLIA [id number] [address] [place] [address] [place] Immature granulocytes (Bld) [#/Vol] 0.03 10*3/uL Normal <0.10 [facility] Comment on above: Order Comment: Speci men Type: BLOOD SPECIMEN Ordering Facility: [facility] Address: [address] [place] [address] Performed By: #### 5 7021-8 #### [facility] CLIA [id number] [address] [place] [address] [place] Immature granulocytes/100 WBC (Bld) 0.5 % Normal [facility] Comment on above: Order Comment: Speci men Type: BLOOD SPECIMEN Ordering Facility: [facility] Address: [address] [place] [address] Performed By: #### 5 7021-8 #### [facility] CLIA [id number] [address] [place] [address] [place] Lymphocytes (Bld) [#/Vol] 0.90 10*3/uL Low 1.00-4.00 [facility] Comment on above: Order Comment: Speci men Type: BLOOD SPECIMEN Ordering Facility: [facility] Address: [address] [place] [address] Performed By: #### 5 7021-8 #### [facility] CLIA [id number] [address] [place] [address] [place] Lymphocytes/100 WBC (Bld) 15.2 % Normal [facility] Comment on above: Order Comment: Speci men Type: BLOOD SPECIMEN Ordering Facility: [facility] Address: [address] [place] [address] Performed By: #### 5 7021-8 #### [facility] CLIA [id number] [address] [place] [address] [place] MCH (RBC) [Entitic mass] 30.9 pg Normal 26.0-34.0 [facility] Comment on above: Order Comment: Speci men Type: BLOOD SPECIMEN Ordering Facility: [facility] Address: [address] [place] [address] Performed By: #### 5 7021-8 #### [facility] CLIA [id number] [address] [place] [address] [place] MCHC (RBC) [Mass/Vol] 32.2 g/dL Normal 30.5-36.0 [facility] Comment on above: Order Comment: Speci men Type: BLOOD SPECIMEN Ordering Facility: [facility] Address: [address] [place] [address] Performed By: #### 5 7021-8 #### [facility] CLIA [id number] [address] [place] [address] [place] MCV (RBC) [Entitic vol] 96.0 fL Normal 80.0-100.0 [facility] Comment on above: Order Comment: Speci men Type: BLOOD SPECIMEN Ordering Facility: [facility] Address: [address] [place] [address] Performed By: #### 5 7021-8 #### [facility] CLIA [id number] [address] [place] [address] [place] Monocytes (Bld) [#/Vol] 0.67 10*3/uL Normal <0.87 [facility] Comment on above: Order Comment: Speci men Type: BLOOD SPECIMEN Ordering Facility: [facility] Address: [address] [place] [address] Performed By: #### 5 7021-8 #### [facility] CLIA [id number] [address] [place] [address] [place] Monocytes/100 WBC (Bld) 11.3 % Normal C [facility] Comment on above: Order Comment: Speci men Type: BLOOD SPECIMEN Ordering Facility: [facility] Address: [address] [place] [address] Performed By: #### 5 7021-8 #### [facility] CLIA [id number] [address] [place] [address] [place] Neutrophils (Bld) [#/Vol] 4.17 10*3/uL Normal 1.45-7.50 [facility] Comment on above: Order Comment: Speci men Type: BLOOD SPECIMEN Ordering Facility: [facility] Address: [address] [place] [address] Performed By: #### 5 7021-8 #### [facility] CLIA [id number] [address] [place] [address] [place] Neutrophils/100 WBC (Bld) 70.4 % Normal [facility] Comment on above: Order Comment: Speci men Type: BLOOD SPECIMEN Ordering Facility: [facility] Address: [address] [place] [address] Performed By: #### 5 7021-8 #### [facility] CLIA [id number] [address] [place] [address] [place] Nucleated RBC (Bld) [#/Vol] 10*3/uL Normal <0.01 [facility] Comment on above: Order Comment: Speci men Type: BLOOD SPECIMEN Ordering Facility: [facility] Address: [address] [place] [address] Performed By: #### 5 7021-8 #### [facility] CLIA [id number] [address] [place] [address] [place] Nucleated RBC/100 WBC (Bld) [Ratio] 0.0 /100 WBC Normal [facility] Comment on above: Order Comment: Speci men Type: BLOOD SPECIMEN Ordering Facility: [facility] Address: [address] [place] [address] Performed By: #### 5 7021-8 #### [facility] CLIA [id number] [address] [place] [address] [place] Platelet mean volume (Bld) [Entitic vol] 9.7 fL Normal 9.0-12.7 [facility] Comment on above: Order Comment: Speci men Type: BLOOD SPECIMEN Ordering Facility: [facility] Address: [address] [place] [address] Performed By: #### 5 7021-8 #### [facility] CLIA [id number] [address] [place] [address] [place] Platelets (Bld) [#/Vol] 211 10*3/uL Normal 150-400 [facility] Comment on above: Order Comment: Speci men Type: BLOOD SPECIMEN Ordering Facility: [facility] Address: [address] [place] [address] Performed By: #### 5 7021-8 #### [facility] CLIA [id number] [address] [place] [address] [place] RBC (Bld) [#/Vol] 3.53 10*6/uL Low 3.90-5.20 [facility] Comment on above: Order Comment: Speci men Type: BLOOD SPECIMEN Ordering Facility: [facility] Address: [address] [place] [address] Performed By: #### 5 7021-8 #### [facility] CLIA [id number] [address] [place] [address] [place] WBC (Bld) [#/Vol] 5.92 10*3/uL Normal 3.70-11.00 [facility] Comment on above: Order Comment: Speci men Type: BLOOD SPECIMEN Ordering Facility: [facility] Address: [address] [place] [address] Performed By: #### 5 7021-8 #### [facility] CLIA [id number] [address] [place] [address] [place] CNOVon 03-22-2025 CNOV Office Visit (FAMPWS ) -------- KANDI CORREIA ([id number]) 1945 F Date Time Provider Department 03/22/25 [...] PCP - General (Family Medicine) Marjan Reid APRN.KILN STOKER as Computer Security Manager (Family Medicine) Casandra Kinsey APRN.CNP as Computer Security Manager (Family Medicine) Dr Tompkins, optometry and Dr. [...] BiPAP for sleep. - Denies seeing a ore smelter. - Denies changes in bowel habits, hematochezia, [...] a bottle of wine left from last [place]. - Does not drive; gave car to grandson. - Sleeps well; has a clock with a laser that projects the time on the ceiling. R (more content not included)... Normal [facility] Comprehensive metabolic 2000 panelon 03-22-2025 Albumin [Mass/Vol] 4.3 g/dL Normal 3.9-4.9 [facility] Comment on above: Order Comment: Speci men Type: BLOOD SPECIMENOrdering Facility: [facility] Address: [address] [place] [address] Performed By: #### 2 4323-8 ####[facility] [id number] [place] [address] [place] ALP [Catalytic activity/Vol] 77 U/L Normal 34-123 [facility] Comment on above: Order Comment: Speci men Type: BLOOD SPECIMENOrdering Facility: [facility] Address: [address] [place] [address] Performed By: #### 2 432-8 ####[facility] [id number] [place] [address] [place] ALT [Catalytic activity/Vol] 10 U/L Normal 7-38 [facility] Comment on above: Order Comment: Speci men Type: BLOOD SPECIMENOrdering Facility: [facility] Address: [address] [place] [address] Performed By: #### 2 4323-8 ####[facility] [id number] [place] [address] [place] Anion gap [Moles/Vol] 10 mmol/L Normal 8-15 [facility] Comment on above: Order Comment: Speci men Type: BLOOD SPECIMENOrdering Facility: [facility] Address: [address] [place] [address] Performed By: #### 2 4323-8 ####[facility] [id number] [place] [address] [place] AST [Catalytic activity/Vol] 19 U/L Normal 13-35 [facility] Comment on above: Order Comment: Speci men Type: BLOOD SPECIMENOrdering Facility: [facility] Address: [address] [place] [address] Performed By: #### 2 4323-8 ####[facility] [id number] [place] [address] [place] Bilirubin [Mass/Vol] 0.3 mg/dL Normal 0.2-1.3 [facility] Comment on above: Order Comment: Speci men Type: BLOOD SPECIMENOrdering Facility: [facility] Address: [address] [place] [address] Performed By: #### 2 4323-8 ####[facility] [id number] [place] [address] [place] Calcium [Mass/Vol] 9.5 mg/dL Normal 8.5-10.2 [facility] Comment on above: Order Comment: Speci men Type: BLOOD SPECIMENOrdering Facility: [facility] Address: [address] [place] [address] Performed By: #### 2 4323-8 ####[facility] [id number] [place] [address] [place] Chloride [Moles/Vol] 97 mmol/L Low 98-107 [facility] Comment on above: Order Comment: Speci men Type: BLOOD SPECIMENOrdering Facility: [facility] Address: [address] [place] [address] Performed By: #### 2 4323-8 ####[facility] [id number] [place] [address] [place] CO2 [Moles/Vol] 34 mmol/L High 22-30 [facility] Comment on above: Order Comment: Speci men Type: BLOOD SPECIMENOrdering Facility: [facility] Address: [address] [place] [address] Performed By: #### 2 4323-8 ####[facility] [id number] [place] [address] [place] Creatinine [Mass/Vol] 1.10 mg/dL High 0.58-0.96 [facility] Comment on above: Order Comment: Rg burgos Type: BLOOD SPECIMENOrdering Facility: [facility] Address: [address] [place] [address] Performed By: #### 2 4323-8 ####[facility] [id number] [place] [address] [place] eGFRcr SerPlBld CKD-EPI 2020 52 mL/min/1.73m??? Low >=60 [facility] Comment on above: Order Comment: Rg burgos Type: BLOOD SPECIMENOrdering Facility: [facility] Address: [address] [place] [address] Result Comment: Nara mated Glomerular Filtration Rate [...] actual GFR. Performed By: #### 2 4323-8 ####[facility]IA [id number] [place] [address] [place] Glucose [Mass/Vol] 64 mg/dL Low 74-99 [facility] Comment on above: Order Comment: Rg burgos Type: BLOOD SPECIMENOrdering Facility: [facility] Address: [address] [place] [address] Result Comment: The [place] Diabetes Association (ADA) provides guidance for cutoff [...] Standards of Medical Care in Diabetes 2016, [place] Diabetes Association. Diabetes Care. 2016.39(Suppl 1). Performed By: #### 2 4323-8 ####[facility]IA [id number] [place] [address] [place] Potassium [Moles/Vol] 4.0 mmol/L Normal 3.7-5.1 [facility] Comment on above: Order Comment: Speci men Type: BLOOD SPECIMENOrdering Facility: [facility] Address: [address] [place] [address] Performed By: #### 2 4323-8 ####[facility]CLIA [id number] [place] [address] [place] Protein [Mass/Vol] 6.9 g/dL Normal 6.3-8.0 [facility] Comment on above: Order Comment: Speci men Type: BLOOD SPECIMENOrdering Facility: [facility] Address: [address] [place] [address] Performed By: #### 2 4323-8 ####[facility]IA [id number] [place] [address] [place] Sodium [Moles/Vol] 141 mmol/L Normal 136-144 [facility] Comment on above: Order Comment: Speci men Type: BLOOD SPECIMENOrdering Facility: [facility] Address: [address] [place] [address] Performed By: #### 2 4323-8 ####[facility] LABCLIA [id number] [place] [id number] [place] Urea nitrogen [Mass/Vol] 23 mg/dL High 7-21 [facility] Comment on above: Order Comment: Speci men Type: BLOOD SPECIMENOrdering Facility: [facility] Address: [address] [place] [address] Performed By: #### 2 4323-8 ####[facility]CLIA [id number] [address] HbA1c (Bld)on 03-22-2025 Average glucose Estimated from glycated hemoglobin (Bld) [Mass/Vol] 105 mg/dL Normal [facility] Comment on above: Order Comment: Rg burgos Type: BLOOD SPECIMENOrdering Facility: [facility] Address: [address] [place] [address] Result Comment: eAG: (Estimated average glucose) is a calculated value from HgbA1c and is canvas products sales representative of the average blood glucose level in the last 2-3 month period. Performed By: #### 5 5454-3 ####[facility]IA [id number] [address] HbA1c (Bld) [Mass fraction] 5.3 % Normal 4.3-5.6 [facility] Comment on above: Order Comment: Rg burgos Type: BLOOD SPECIMENOrdering Facility: [facility] Address: [address] [place] [address] Result Comment: [place] Diabetes Association guidelines indicate that patients with HgbA1c in the range 5.7-6.4% are at increased risk for development of diabetes, and intervention by lifestyle modification may be beneficial. HgbA1c greater or equal to 6.5% is considered diagnostic of diabetes. Performed By: #### 5 5454-3 ####[facility]CLIA [id number] [address] CNOVon 03-08-2025 CNOV Office Visit (PULMWS ) -------- KANDI CORREIA ([id number]) 1945 F Date Time Provider Department 03/08/25 11:30 AM ORAL PERDUE PULSHANTEL During your visit today, we recorded the following information about you: Pulse Respiration 68/minute 16/minute Oral Perdue, TRANSIT COACH OPERATOR.KILN STOKER 03/08/2025 12:25 PM Signed Pulmonary Medicine Patients name: Kandi Correia PCP: Jalyn Smith MD CC: follow-up HPI: Kandi Correia is a 79 year old female former 40-fpez-xqwe smoker having quit in 2011 with PMH [...] HISTORY Diagnosis Date AAA (abdominal aortic aneurysm) ([facility]) Abdominal aortic aneurysm (AAA) without rupture (HCC) 09/09/2023 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 Normal [facility] 01-24-2025 [facility] Telephone ([facility]) -------- KANDI CORREIA ([id number]) 1945 F Date Time Provider Department 01/24/25 JALYN SMITH [facility] During your visit today, we recorded the following information about you: aKlpana Sharif LPN 01/24/2025 4:23 PM Signed Type [...] two times a day with meals. - lyijikoxmc-xceznbvb-nmbi oterol (BREZTRI AEROSPHERE) 160-9-4.8 mcg/actuation HFA aerosol [...] this patient by: PATIENT Maria Alejandra Nolan (Professor Of Biochemistry) Problem List As Of Date 01/24/2025 Noted [...] Encounter Status:Closed by KALPANA SHARIF on 01/25/25 [facility] 01-09-2025 [facility] -------- KANDI CORREIA ([id number]) 1945 F Date Time Provider Department 01/09/25 [...] the procedure. Karson requests call back at [phone]. SANDRA Massey William J, MD 01/09/2025 1:37 [...] two times a day with meals. - jcikhkdasp-qbprqcws-yqnv oterol (BREZTRI AEROSPHERE) 160-9-4.8 mcg/actuation HFA aerosol [...] this patient by: PATIENT Maria Alejandra Nolan (Professor Of Biochemistry) Problem List As Of Date 01/09/2025 Noted [...] (HCC) [I71*04/ (more content not included)... Normal [facility] CTA ABD/PELV W IVCONon 12-02 CTA ABD/PELV W IVCON * * *Final Report* * * DATE OF EXAM: Dec 02 2024 2:02PM [facility] [place] CTA ABD/PELV W IVCON / [...] are unchanged from prior study, detailed above. University Relations Director: [facility] Transcribe Date/Time: Dec 02 2024 3:03P Dictated by : ROBBIE LEON MD This examination was interpreted and the report reviewed and electronically signed by: ROBBIE LEON MD on Dec 02 2024 3:09PM EST [id number] [facility] CTA Abdominal vessels and Pe lvis vessels W contrast Umer 12-02-2024 IMPRESSION: Unchanged aortic dissection in the abdomen and pelvis. Other vascular findings are unchanged from prior study, detailed above. University Relations Director: [facility] Transcribe Date/Time: Dec 02 2024 3:03P Dictated by : ROBBIE LEON MD This examination was interpreted and the report reviewed and electronically signed by: ROBBIE LEON MD on Dec 02 2024 3:09PM [facility] RAD[facility]OLOG[facility] * * *Final Report* * * DATE OF EXAM: Dec 02 2024 2:02PM [facility] [place] - CTA ABD/PELV W IVCON / [...] or fluid collection. Bones/Soft Tissues: Degenerative changes. [facility] Provider, [facility] - 12/02/2024 * * *Final Report* * * DATE OF EXAM: Dec 02 2024 2:02PM [facility] [place] - CTA ABD/PELV W IVCON / [...] are unchanged from prior study, detailed above. University Relations Director: [facility] Transcribe Date/Time: Dec 02 2024 3:03P Dictated by : ROBBIE LEON MD This examination was interpreted and the report reviewed and electronically signed by: ROBBIE LEON MD on Dec 02 2024 3:09PM EST [facility] Radiology Study observation (narrative) [facility] CTA Abdominal vessels and Pe lvis vessels W contrast IVOrdered By: [facility] Provider on 12-02-2024 [facility] Creatinine + eGFR Pnl SerPlB ldon 12-02-2024 Creatinine and Glomerular filtration rate.predicted panel (S/P/Bld) 67 mL/min/1.73m??? Normal >=60 [facility] Comment on above: Order Comment: Rg burgos Type: BLOOD SPECIMEN Ordering Facility: [facility] Address: [address] [place] [address] Result Comment: [facility] Glomerular Filtration Rate (eGFR) is [...] GFR. Performed By: #### 4 5066-8 #### [facility] CLIA [id number] [address] STATES OF [facility] Creatinine and Glomerular fi ltration rate.predicted panel (S/P/Bld)on 12-02-2024 Creatinine [Mass/Vol] 0.89 mg/dL Normal 0.58-0.96 [facility] Comment on above: Order Comment: Rg burgos Type: BLOOD SPECIMEN Ordering Facility: [facility] Address: [address] [place] [address] Performed By: #### 4 5066-8 #### [facility] CLIA [id number] [address] [place] [address] [place] NURSING PROGon 12-02-2024 NURSING PROG HNO ID: [id number] Author: ELY DAY RN Service: Radiology Author [...] DATE: December 02, 2024 TIME: 1:36 PM [facility] 10-18-2024 [facility] Telephone ([facility]) -------- KANDI CORREIA ([id number]) 1945 F Date Time Provider Department 10/18/24 YANIV TODD During your visit today, we recorded the following information about you: Gale Eckert RN 10/18/2024 4:29 PM Signed Type of form: Medical clearance ( cataract surgery) Form received via fax When form is completed, Fax form to [phone] Form has been forwarded to nurse SANDRA Meehan Melissa, RN 10/21/2024 2:[address] Todd patient will need to have f/u and then can provide clearance. Attempted to call hemal marie [phone], they are out of the office Will [...] 1 tablet by mouth once daily. - zedlphgynh-oyxgzkpj-daqp oterol (BREZTRI AEROSPHERE) 160-9-4.8 mcg/actuation HFA aerosol [...] this patient by: PATIENT Maria Alejandra Nolan (Professor Of Biochemistry) Problem List As Of Date 10/18/2024 Noted [...] Status:Closed by GALE ECKERT on 10/26/24 Normal [facility] ALBUMIN/CREATININE RATIO, UR INEon 09-07-2024 Albumin DL <= 20 mg/L (U) [Mass/Vol] mg/dL Normal [facility] Comment on above: Order Comment: Speci men Type: URINE SPECIMENOrdering Facility: [facility] Address: [address] [place] [address] Performed By: #### U ACR ####[facility] [id number] [place] [address] [place] Albumin/Creatinine (U) [Mass ratio] <12 Normal <30 [facility] Comment on above: Order Comment: Speci men Type: URINE SPECIMENOrdering Facility: [facility] Address: [address] [place] [address] Result Comment: Adul t Male and Female Nephrotic Criteria: <30 mg/g is considered normal to mildly increased 30-300 mg/g is considered moderately increased >300 mg/g is considered severely increased KDIGO. (2013). KDIGO 2012 Clinical Practice Guideline for the Evaluation and Management of Chronic Kidney Disease. Official Journal of the International Society of Nephrology, 3(1), 1-150. Performed By: #### U ACR ####[facility] [id number] [place] [address] [place] Creatinine (U) [Mass/Vol] 101.2 mg/dL Normal 20.0-300.0 [facility] Comment on above: Order Comment: Speci men Type: URINE SPECIMENOrdering Facility: [facility] Address: [address] [place] [address] Performed By: #### U ACR ####[facility] [id number] [place] [id number] [place] CNOVon 09-07-2024 CNOV Office Visit ([facility] ) -------- KANDI CORREIA ([id number]) 1945 F Date Time Provider Department 09/07/24 [...] Reason for visit: abd pain Which facility: [facility] Date of visit: 09/05/24 Diagnosis: abd [...] Take 1 tablet by mouth once daily. kmgdsxfbzx-lxetsmiy-itvh oterol (BREZTRI AEROSPHERE) 160-9-4.8 mcg/actuation HFA aerosol [...] HISTORY Diagnosis Date AAA (abdominal aortic aneurysm) ([facility]) Abdominal aortic aneurysm (AAA) without rupture ([facility]) 09/09/2023 Aneurysm of left common iliac artery ([facility]) 11/05/2023 Aneurysm, thoracic aortic ([facility]) Arthritis Centrilobular emphysema ([facility]) 10/01/2022 Chronic pain Chronic respiratory failure with hypoxia ([facility]) 05/24/2019 Chronic venous stasis dermatitis COPD (chronic obstructive pulmonary disease) ([facility]) Degenerative disc disease Depression Descending thoracic aortic dissection ([facility]) 12/22/[address] 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 Normal [facility] HbA1c (Bld)on 09-07-2024 Average glucose Estimated from glycated hemoglobin (Bld) [Mass/Vol] 100 mg/dL Normal [facility] Comment on above: Order Comment: Rg burgos Type: BLOOD SPECIMEN Ordering Facility: [facility] Address: [address] [place] [address] Result Comment: eAG: (Estimated average glucose) is a calculated value from HgbA1c and is canvas products sales representative of the average blood glucose level in the last 2-3 month period. Performed By: #### 5 5454-3 #### [facility] CLIA [id number] [address] [place] [address] [place] HbA1c (Bld) [Mass fraction] 5.1 % Normal 4.3-5.6 [facility] Comment on above: Order Comment: Rg burgos Type: BLOOD SPECIMEN Ordering Facility: [facility] Address: [address] [place] [address] Result Comment: Amer ican Diabetes Association guidelines indicate that patients with HgbA1c in the range 5.7-6.4% are at increased risk for development of diabetes, and intervention by lifestyle modification may be beneficial. HgbA1c greater or equal to 6.5% is considered diagnostic of diabetes. Performed By: #### 5 5454-3 #### [facility] CLIA [id number] [address] [place] [address] [place] LIPID PANEL, NONFASTINGon Cholesterol [Mass/Vol] 188 mg/dL Normal <200 [facility] Comment on above: Order Comment: Rg burgos Type: BLOOD SPECIMENOrdering Facility: [facility] Address: [address] [place] [address] Result Comment: <200 mg/dL, Desirable 200-239 mg/dL, Borderline high >239 mg/dL, High Performed By: #### 1 9123-9, LIPNF ####[facility] [id number] [place] [address] [place] HDL CHOLESTEROL, NF 58 mg/dL Normal >39 [facility] Comment on above: Order Comment: Rg aubrey Type: BLOOD SPECIMENOrdering Facility: [facility] Address: [address] [place] [address] Result Comment: 40-5 9 mg/dL, Acceptable >59 mg/dL, High: Negative risk factor for coronary heart disease <40 mg/dL, Low: Positive risk factor for coronary heart disease Performed By: #### 1 9123-9, LIPNF ####[facility] [id number] [address] LDL CHOLESTEROL, NF 98 mg/dL Normal <100 [facility] Comment on above: Order Comment: Rg aubrey Type: BLOOD SPECIMENOrdering Facility: [facility] Address: [address] [place] [address] Result Comment: <100 mg/dL, Optimal 100-129 mg/dL, Near optimal/above optimal 130-159 mg/dL, Borderline high 160-189 mg/dL, High >189 mg/dL, Very high Secondary prevention optimal LDL Cholesterol levels are recommended to be < 70 mg/dL Performed By: #### 1 9123-9, LIPNF ####[facility] [id number] [address] LDL/HDL RATIO, NF 1.69 mg/dL Normal <2.54 [facility] Comment on above: Order Comment: Charumelonie burgos Type: BLOOD SPECIMENOrdering Facility: [facility] Address: [address] [place] [address] Result Comment: Refe rence: 1. National Cholesterol Education Program ATP III Guideline At-A-Glance Quick Desk Reference: National Heart, Lung, and Blood Beecher. National Institutes of Health. 2001: NIH Publication No. 01-3305. 2. An International Atherosclerosis Society position paper: global recommendations for the management of dyslipidemia: executive summary, Atherosclerosis. 2014: 232(2):410-413. Performed By: #### 1 9123-9, LIPNF ####[facility] [id number] [place] [address] [place] NON HDL CHOL, NF 130 mg/dL High <130 [facility] Comment on above: Order Comment: Speci men Type: BLOOD SPECIMENOrdering Facility: [facility] Address: [address] [place] [address] Result Comment: <130 mg/dL, Optimal 130-159 mg/dL, Near optimal/above optimal 160-189 mg/dL, Borderline high 190-219 mg/dL, High >219 mg/dL, Very high Secondary prevention optimal non HDL Cholesterol levels are recommended to be <100 mg/dL Performed By: #### 1 9123-9, LIPNF ####[facility] [id number] [place] [address] [place] T CHOL/HDL RATIO NF 3.24 mg/dL Normal <5.10 [facility] Comment on above: Order Comment: Speci men Type: BLOOD SPECIMENOrdering Facility: [facility] Address: [address] [place] [address] Performed By: #### 1 9123-9, LIPNF ####[facility] [id number] [place] [address] [place] TRIGLYCERIDES, NF 158 mg/dL High <150 [facility] Comment on above: Order Comment: Speci men Type: BLOOD SPECIMENOrdering Facility: [facility] Address: [address] [place] [address] Result Comment: <150 mg/dL, Normal 150-199 mg/dL, Borderline high 200-499 mg/dL, High >499 mg/dL, Very high Performed By: #### 1 9123-9, LIPNF ####[facility] [id number] [place] [address] [place] VLDL CHOLESTEROL, NF 32 mg/dL High <30 [facility] Comment on above: Order Comment: Speci men Type: BLOOD SPECIMENOrdering Facility: [facility] Address: [address] [place] [address] Performed By: #### 1 9123-9, LIPNF ####[facility] [id number] [place] [id number] [facility] Magnesium SerPl-mCncon 09-07 Magnesium [Mass/Vol] 1.9 mg/dL Normal 1.7-2.3 [facility] Comment on above: Order Comment: Speci men Type: BLOOD SPECIMENOrdering Facility: [facility] Address: [address] [place] [address] Performed By: #### 1 9123-9, LIPNF ####[facility] [id number] [address] [place] Urine Cultureon 09-06-2024 [facility] Escherichia coli [place] Count >100,000 Escherichia coli: REACTION Ampicillin Islt [...] TMP SMX Islt SHENA <=20 S Normal [facility] Comment on above: Performed By: #### M 100.2200 #### [facility] [address] [place], [place], [address] Abdomen/Pelvis W IV Cont ONL Yon 09-04-2024 Abdomen/Pelvis W IV Cont ONLY [facility] Imaging Services [address] [place], [place] [address] Abdomen/Pelvis W IV Cont ONLY MR#: [id number] Acct: [id number] Name: KANDI CORREIA Rep #: [id number] : 1945 F 79 From: Frieda Brooke nd, MD PCP: Dr. Jalyn Smith MD Status: REG ER Study: Abdomen/Pelvis W IV Cont ONLY Date of Exam: Exam# [id number] Ordering Dr: Viraj Dozier DO PROCEDURE: ABDOMEN/PELVIS [...] for stability. 3. Mild hepatomegaly. Reading Location: [facility] CC: Dr. Viraj Dozier DO; Dr. Jalyn Smith MD University Relations Director: Signed Normal [facility] Absolute neutrophil countOrd ered By: Viraj Dozier on 09-04-2024 Neutrophils (Bld) [#/Vol] 3.9 10*3/uL 2.0-7.7 [facility] Anion gap in Serum or Plasma Ordered By: Viraj Dozier on 09-04-2024 Anion gap [Moles/Vol] 12 mmol/L 5-15 [facility] BUN/creatinine ratioOrdered By: Viraj Dozier on 09-04-2024 Urea nitrogen/Creatinine [Mass ratio] 23.6 mg/mg High 10-20 [facility] Basic Metabolic Profile (BMP )on 09-04-2024 BUN/CRE 23.6 RATIO High 10-20 [facility] Comment on above: Performed By: #### L 100.0100, L500.2500, L501.2450, L500.3400 #### [facility] [address] [place], [address] Calcium [Mass/Vol] 9.2 mg/dL Normal 7.6-11.0 [facility] Comment on above: Performed By: #### L 100.0100, L500.2500, L501.2450, L500.3400 #### [facility] [address] [place], [address] Chloride [Moles/Vol] 98 mmol/L Normal 98-108 [facility] Comment on above: Performed By: #### L 100.0100, L500.2500, L501.2450, L500.3400 #### [facility] [address] [place], [address] CO2 [Moles/Vol] 29.1 mmol/L Normal 21.0-32.0 [facility] Comment on above: Performed By: #### L 100.0100, L500.2500, L501.2450, L500.3400 #### [facility] [address] [place], [address] Creatinine [Mass/Vol] 1.07 mg/dL Normal 0.70-1.20 [facility] Comment on above: Performed By: #### L 100.0100, L500.2500, L501.2450, L500.3400 #### [facility] [address] [place], [address] ECRCL 43.22 ml/min Low 50-250 [facility] Comment on above: Performed By: #### L 100.0100, L500.2500, L501.2450, L500.3400 #### [facility] [address] [place], [address] GAP 12 Normal 5-15 [facility] Comment on above: Performed By: #### L 100.0100, L500.2500, L501.2450, L500.3400 #### [facility] [address] [place], [address] GFR/1.73 sq M.predicted among non-blacks MDRD (S/P/Bld) [Vol rate/Area] 53 mL/min/{1.73_m2} Low >60 [facility] Comment on above: Result Comment: mL/m in/1.73m2 CKD-EPI Creatinine Equation (2020) Performed By: #### L 100.0100, L500.2500, L501.2450, L500.3400 #### [facility] [address] [place], [address] Glucose [Mass/Vol] 114 mg/dL High 70-99 [facility] Comment on above: Performed By: #### L 100.0100, L500.2500, L501.2450, L500.3400 #### [facility] [address] [place], [address] Potassium [Moles/Vol] 3.6 mmol/L Normal 3.3-5.1 [facility] Comment on above: Performed By: #### L 100.0100, L500.2500, L501.2450, L500.3400 #### [facility] [address] [place], [address] Sodium [Moles/Vol] 140 mmol/L Normal 133-145 [facility] Comment on above: Performed By: #### L 100.0100, L500.2500, L501.2450, L500.3400 #### [facility] [address] [place], [address] Urea nitrogen [Mass/Vol] 25 mg/dL High 4-19 [facility] Comment on above: Performed By: #### L 100.0100, L500.2500, L501.2450, L500.3400 #### [facility] [address] [place], [address] Basophil percentageOrdered B y: Viraj Dozier on 09-04-2024 Basophils/100 WBC (Bld) 0.9 % 0-1 [facility] Bilirubin Test strip Ql (U)O rdered By: Viraj Dozier on 09-04-2024 Bilirubin Ql (U) Negative Negative [facility] Bilirubin directOrdered By: Viraj Dozier on 09-04-2024 Bilirubin.direct [Mass/Vol] 0.18 mg/dL 0.00-0.30 [facility] Bilirubin, totalOrdered By: Viraj Dozier on 09-04-2024 Bilirubin [Mass/Vol] 0.44 mg/dL 0.00-1.30 [facility] CBC W/Diff, Automatedon 08-08 Absolute Lymph 0.81 X10 3/uL Low 0.83-4.51 [facility] Comment on above: Performed By: #### L 100.0100, L500.2500, L501.2450, L500.3400 #### [facility] [address] [place], [address] Absolute Neut 3.9 X10 3/uL Normal 2.0-7.7 [facility] Comment on above: Performed By: #### L 100.0100, L500.2500, L501.2450, L500.3400 #### [facility] [address] [place], [address] Basophils/100 WBC (Bld) 0.9 % Normal 0-1 [facility] Comment on above: Performed By: #### L 100.0100, L500.2500, L501.2450, L500.3400 #### [facility] [address] [place], [address] Eosinophils/100 WBC (Bld) 1.7 % Normal 0-5 [facility] Comment on above: Performed By: #### L 100.0100, L500.2500, L501.2450, L500.3400 #### [facility] [address] [place], [address] Erythrocyte distribution width (RBC) [Ratio] 13.0 % Normal 11.6-14.6 [facility] Comment on above: Performed By: #### L 100.0100, L500.2500, L501.2450, L500.3400 #### [facility] [address] [place], [address] Hematocrit (Bld) [Volume fraction] 32.2 % Low 37-47 [facility] Comment on above: Performed By: #### L 100.0100, L500.2500, L501.2450, L500.3400 #### [facility] [address] [place], [address] Hemoglobin (Bld) [Mass/Vol] 10.5 g/dL Low 12.0-15.0 [facility] Comment on above: Performed By: #### L 100.0100, L500.2500, L501.2450, L500.3400 #### [facility] [address] [place], [address] IG% 0.300 Normal 0.0-0.9 [facility] Comment on above: Result Comment: IG% - Immature Granulocytes (promyelocytes, myelocytes and metamyelocytes) > 1% indicates that a LEFT SHIFT is Present. Performed By: #### L 100.0100, L500.2500, L501.2450, L500.3400 #### [facility] [address] [place], [address] Lymphocytes/100 WBC (Bld) 14.2 % Low 19-41 [facility] Comment on above: Performed By: #### L 100.0100, L500.2500, L501.2450, L500.3400 #### [facility] [address] [place], [address] MCH (RBC) [Entitic mass] 30.7 pg Normal 27.0-32.0 [facility] Comment on above: Performed By: #### L 100.0100, L500.2500, L501.2450, L500.3400 #### [facility] [address] [place], [address] MCHC (RBC) [Mass/Vol] 32.6 g/dL Normal 32-36 [facility] Comment on above: Performed By: #### L 100.0100, L500.2500, L501.2450, L500.3400 #### [facility] [address] [place], [address] MCV (RBC) [Entitic vol] 94.2 fL Normal 81-99 [facility] Comment on above: Performed By: #### L 100.0100, L500.2500, L501.2450, L500.3400 #### [facility] [address] [place], [address] Monocytes/100 WBC (Bld) 14.5 % High 0-10 [facility] Comment on above: Performed By: #### L 100.0100, L500.2500, L501.2450, L500.3400 #### [facility] [address] [place], [address] Neutrophils/100 WBC (Bld) 68.4 % Normal 47-70 [facility] Comment on above: Performed By: #### L 100.0100, L500.2500, L501.2450, L500.3400 #### [facility] [facility] [address] [place], [address] Nucleated RBC (Bld) [#/Vol] 0 10*3/uL Normal 0-5 [facility] Comment on above: Performed By: #### L 100.0100, L500.2500, L501.2450, L500.3400 #### [facility] [address] [place], [address] Platelet mean volume (Bld) [Entitic vol] 9.6 fL Normal 6.2-12.0 [facility] Comment on above: Performed By: #### L 100.0100, L500.2500, L501.2450, L500.3400 #### [facility] [address] [place], [address] Platelets (Bld) [#/Vol] 196 10*3/uL Normal 150-450 [facility] Comment on above: Performed By: #### L 100.0100, L500.2500, L501.2450, L500.3400 #### [facility] [address] [place], [address] RBC (Bld) [#/Vol] 3.42 10*6/uL Low 4.2-5.4 [facility] Comment on above: Performed By: #### L 100.0100, L500.2500, L501.2450, L500.3400 #### [facility] [address] [place], [address] RDW SD 44.6 fl High 35.1-43.9 [facility] Comment on above: Performed By: #### L 100.0100, L500.2500, L501.2450, L500.3400 #### [facility] [address] [place], [address] WBC (Bld) [#/Vol] 5.7 10*3/uL Normal 4.4-11.0 [facility] Comment on above: Performed By: #### L 100.0100, L500.2500, L501.2450, L500.3400 #### [facility] [address] [place], [address] Carbon dioxide, total [Moles /volume] in Central venous bloodOrdered By: Viraj Dozier on 09-04-2024 CO2 [Moles/Vol] 29.1 mmol/L 21.0-32.0 [facility] Chloride assayOrdered By: Westley Dozier on 09-04-2024 Chloride [Moles/Vol] 98 mmol/L 98-108 [facility] Emergency Department Summary on 09-04-2024 Emergency Department Summary [facility] Medical Records Department [address] [place] [address] Emergency Department Summary 09/04/24 MR#: [id number] Acct: [id number] Name: KANDI CORREIA Rep #: [id number] : 1945 79 From: Viraj Dozier DO [...] for dinner. She denies any urinary symptoms. [facility] Medical History Aortic dissection, abdominal Weakness [...] orthopnea Gastrointesti (more content not included)... Normal [facility] Eosinophil percentageOrdered By: Viraj Dozier on 09-04-2024 Eosinophils/100 WBC (Bld) 1.7 % 0-5 [facility] Epithelial cells.squamous LM Ql (Urine sed)Ordered By: Viraj Dozier on 09-04-2024 Epithelial cells.squamous LM.HPF (Urine sed) [#/Area] 0 /[HPF] 5-10 [facility] Erythrocyte distribution wid th ratioOrdered By: Viraj Dozier on 09-04-2024 Erythrocyte distribution width (RBC) [Ratio] 13.0 % 11.6-14.6 [facility] Erythrocyte distribution wid th standard deviationOrdered By: Viraj Dozier on 09-04-2024 Erythrocyte distribution width (RBC) [Entitic vol] 44.6 fL High 35.1-43.9 [facility] Estimation of creatinine jesse aranceOrdered By: Viraj Dozier on 09-04-2024 Estimated Creatinine Clearance Calc 43.22 ml/min Low 50-250 [facility] GFR/1.73 sq M.predicted jonny g non-blacks MDRD (S/P/Bld) [Vol rate/Area]Ordered By: Viraj Dozier on 09-04-2024 Estimated GFR (MDRD) Non-Af Amer 53 Low >60 [facility] Comment on above: mL/min/1.73m2 CKD-EP I Creatinine Equation (2020) Glucose Ql (U)Ordered By: Westley Dozier on 09-04-2024 Urine Glucose (UA) Normal mg/dl Normal [facility] Hematocrit Auto (Bld) [Volum e fraction]Ordered By: Viraj Dozier on 09-04-2024 Hematocrit (Bld) [Volume fraction] 32.2 % Low 37-47 [facility] Hemoglobin measurementOrdere d By: Viraj Dozier on 09-04-2024 Hemoglobin (Bld) [Mass/Vol] 10.5 g/dL Low 12.0-15.0 [facility] Immature granulocytes/100 WB C Auto (Bld)Ordered By: Viraj Dozier on 09-04-2024 Immature granulocytes/100 WBC (Bld) 0.300 % 0.0-0.9 [facility] Comment on above: IG% - Immature Granu locytes (promyelocytes, myelocytes and metamyelocytes) > 1% indicates that a LEFT SHIFT is Present. Ketones Test strip Ql (U)Ord ered By: Viraj Dozier on 09-04-2024 Ketones Ql (U) Negative Negative [facility] Laboratory - Chemistry and C hemistry - challengeOrdered By: Viraj Dozier on 09-04-2024 AST [Catalytic activity/Vol] 19 U/L <32 [facility] Lipaseon 09-04-2024 Lipase [Catalytic activity/Vol] 17 U/L Normal 13-75 [facility] Comment on above: Result Comment: Sil owens note: LIPASE revised reference range effective 22. New Lipase methodology. Expected to produce lower values than the previous assay method. NEW Reference Range: 13 - 75 U/L Performed By: #### L 505.5000, L3410.9998 #### [facility] [address] [place], [address] Lipase measurementOrdered By : Viraj Dozier on 09-04-2024 Lipase [Catalytic activity/Vol] 17 U/L 13-75 [facility] Comment on above: Please note:LIPASE r evised reference range effective 22. New Lipase methodology. Expected to produce lower values than the previous assay method. NEW Reference Range: 13 - 75 U/L Liver Profileon 09-04-2024 Albumin [Mass/Vol] 4.1 g/dL Normal 3.4-4.8 [facility] Comment on above: Performed By: #### L 100.0100, L500.2500, L501.2450, L500.3400 #### [facility] [address] [place], [address] ALK PHOS 84 U/L Normal 35-104 [facility] Comment on above: Performed By: #### L 100.0100, L500.2500, L501.2450, L500.3400 #### [facility] [address] [place], [address] ALT [Catalytic activity/Vol] 8 U/L Normal <=34 [facility] Comment on above: Performed By: #### L 100.0100, L500.2500, L501.2450, L500.3400 #### [facility] [address] [place], [address] AST [Catalytic activity/Vol] 19 U/L Normal <=31 [facility] Comment on above: Performed By: #### L 100.0100, L500.2500, L501.2450, L500.3400 #### [facility] [address] [place], [address] Bilirubin [Mass/Vol] 0.44 mg/dL Normal 0.00-1.30 [facility] Comment on above: Performed By: #### L 100.0100, L500.2500, L501.2450, L500.3400 #### [facility] [address] [place], [address] Bilirubin.direct [Mass/Vol] 0.18 mg/dL Normal 0.00-0.30 [facility] Comment on above: Performed By: #### L 100.0100, L500.2500, L501.2450, L500.3400 #### [facility] [address] [place], [address] Globulin (S) [Mass/Vol] 2.6 g/dL Normal 2.2-4.2 [facility] [place] [facility] Comment on above: Performed By: #### L 100.0100, L500.2500, L501.2450, L500.3400 #### [facility] [address], [address] T PROT 6.6 g/dL Normal 5.9-8.4 [facility] Comment on above: Performed By: #### L 100.0100, L500.2500, L501.2450, L500.3400 #### [facility] [place], [address] Lymphocytes Auto (Unsp spec) [#/Vol]Ordered By: Viraj Dozier on 09-04-2024 Lymphocytes (Bld) [#/Vol] 0.81 10*3/uL Low 0.83-4.51 [facility] Lymphocytes/100 WBC Auto (Un sp spec)Ordered By: Viraj Dozier on 09-04-2024 Lymphocytes/100 WBC (Bld) 14.2 % Low 19-41 [facility] MCV (mean corpuscular volume ) determinationOrdered By: Viraj Dozier on 09-04-2024 MCV (RBC) [Entitic vol] 94.2 fL 81-99 [facility] Mean corpuscular hemoglobin (MCH) determinationOrdered By: Viraj Dozier on 09-04-2024 MCH (RBC) [Entitic mass] 30.7 pg 27.0-32.0 [facility] Mean corpuscular hemoglobin concentration (MCHC) determinationOrdered By: Viarj Dozier on 09-04-2024 MCHC (RBC) [Mass/Vol] 32.6 g/dL 32-36 [facility] Mean platelet volume determi nationOrdered By: Viraj Dozier on 09-04-2024 Platelet mean volume (Bld) [Entitic vol] 9.6 fL 6.2-12.0 [facility] Microscopic analysis of urin e for red blood cells (RBC)Ordered By: Viraj Dozier on 09-04-2024 Urine RBC 0 SEEN /hpf 0-5 [facility] Monocyte percentageOrdered B y: Viraj Dozier on 09-04-2024 Monocytes/100 WBC (Bld) 14.5 % High 0-10 [facility] Mucus LM Ql (Urine sed)Order ed By: Viraj Dozier on 09-04-2024 Mucus Ql (Urine sed) 0 SEEN /hpf [facility] Neutrophil percentageOrdered By: Viraj Dozier on 09-04-2024 Neutrophils/100 WBC (Bld) 68.4 % 47-70 [facility] Nitrite Test strip Ql (U)Ord ered By: Viraj Dozier on 09-04-2024 Nitrite Ql (U) Positive High Negative [facility] Nucleated red blood cell per centageOrdered By: Viraj Doizer on 09-04-2024 Nucleated RBC/100 WBC (Bld) [Ratio] 0 % 0-5 [facility] Platelet countOrdered By: Westley Dozier on 09-04-2024 Platelets (Bld) [#/Vol] 196 10*3/uL 150-450 [facility] Potassium (Unsp spec) [Mass/ Vol]Ordered By: Viraj Dozier on 09-04-2024 Potassium [Moles/Vol] 3.6 mmol/L 3.3-5.1 [facility] Protein Test strip Ql (U)Ord ered By: Viraj Dozier on 09-04-2024 Protein Ql (U) Negative Negative [facility] RBC Auto (Bld) [#/Vol]Ordere d By: Viraj Dozier on 09-04-2024 RBC (Bld) [#/Vol] 3.42 10*6/uL Low 4.2-5.4 [facility] Serum creatinine measurement (mass/volume)Ordered By: Viraj Dozier on 09-04-2024 Creatinine [Mass/Vol] 1.07 mg/dL 0.70-1.20 [facility] Serum globulin measurementOr dered By: Viraj Dozier on 09-04-2024 Globulin (S) [Mass/Vol] 2.6 g/dL 2.2-4.2 [facility] Serum glucose measurement (m ass/volume)Ordered By: Viraj Dozier on 09-04-2024 Glucose [Mass/Vol] 114 mg/dL High 70-99 [facility] Serum or plasma alanine daler otransferase (ALT) measurementOrdered By: Viraj Dozier on 09-04-2024 ALT [Catalytic activity/Vol] 8 U/L <35 [facility] Serum or plasma albumin norman urement (mass/volume)Ordered By: Viraj Dozier on 09-04-2024 Albumin [Mass/Vol] 4.1 g/dL 3.4-4.8 [facility] Serum or plasma alkaline edna sphatase measurementOrdered By: Viraj Dozier on 09-04-2024 ALP [Catalytic activity/Vol] 84 U/L 35-104 [facility] Serum or plasma calcium norman urement (mass/volume)Ordered By: Viraj Dozier on 09-04-2024 Calcium [Mass/Vol] 9.2 mg/dL 7.6-11.0 [facility] Serum or plasma urea nitroge n measurement (mass/volume)Ordered By: Viraj Dozier on 09-04-2024 Urea nitrogen [Mass/Vol] 25 mg/dL High 4-19 [facility] Sodium levelOrdered By: Keon Dozier on 09-04-2024 Sodium [Moles/Vol] 140 mmol/L 133-145 [facility] Total proteinOrdered By: Carmelo Dozier on 09-04-2024 Protein [Mass/Vol] 6.6 g/dL 5.9-8.4 [facility] Urinalysis, Completeon 09-04 BACTERIA 2+ /hpf Normal None Seen [facility] Comment on above: Order Comment: UNK Performed By: #### L 505.5000, L3410.9998 #### [facility] [address] [place], [address] WBC 0-5 SEEN Normal 0-5 [facility] Comment on above: Order Comment: UNK Performed By: #### L 505.5000, L3410.9998 #### [facility] [address] [place], [address] EPI,SQUAMOUS 0 SEEN Normal 5-10 [facility] Comment on above: Order Comment: UNK Performed By: #### L 505.5000, L3410.9998 #### [facility] [address] [place], [address] Mucus Ql (Urine sed) 0 SEEN Normal [facility] Comment on above: Order Comment: UNK Performed By: #### L 505.5000, L3410.9998 #### [facility] [address] [place], [place], [address] RBC 0 SEEN Normal 0-5 [facility] Comment on above: Order Comment: UNK Performed By: #### L 505.5000, L3410.9998 #### [facility] [address] [place], [place], [address] Urine blood detectionOrdered By: Viraj Dozier on 09-04-2024 Urine Occult Blood 10 /ul High Negative [facility] Urine clarityOrdered By: Carmelo Dozier on 09-04-2024 Clarity (U) Clear Clear [facility] Urine color determinationOrd ered By: Viraj Dozier on 09-04-2024 Color (U) Yellow Yellow [facility] Urine leukocyte esterase det ection by dipstickOrdered By: Viraj Dozier on 09-04-2024 Leukocyte esterase Test strip Ql (U) 25 /ul High Negative [facility] Urine pHOrdered By: Viraj orellana on 09-04-2024 pH (U) 7.0 [pH] 5.0 - 8.0 [facility] Urine sediment bacteria coun t by microscopy (number/high power field)Ordered By: Viraj Dozier on 09-04-2024 Bacteria LM.HPF (Urine sed) [#/Area] 2 /[HPF] None Seen [facility] Urine specific gravity measu rementOrdered By: Viraj Dozier on 09-04-2024 Specific gravity (U) [Rel density] 1.010 1.002-1.030 [facility] Urobilinogen Ql (U)Ordered B y: Viraj Dozier on 09-04-2024 Urine Urobilinogen Normal mg/dl Normal [facility] White blood cell (WBC) count Ordered By: Viraj Dozier on 09-04-2024 WBC (Bld) [#/Vol] 5.7 10*3/uL 4.4-11.0 [facility] White blood cell countOrdere d By: Viraj Dozier on 09-04-2024 Urine WBC 0-5 SEEN /hpf 0-5 [facility] CNPNon 2024 CNPN Telephone ([facility]) -------- KANDI CORREIA ([id number]) 1945 F Date Time Provider Department 08/31/24 JALYN SMITH During your visit today, we recorded the following information about you: Susana Fisher RN 2024 3:58 PM Signed Patient's daughter calls and states that patient received the Shingrix and RSV vaccination at [facility]. Pharmacy is recommending patient get a pneumonia [...] Fully Assessed Reason for Visit: Patient Question [4500] Prescriptions as of 2024 - oxybutynin XL [...] 1 tablet by mouth once daily. - ozreyskpgp-cegrhuuo-xqih oterol (BREZTRI AEROSPHERE) 160-9-4.8 mcg/actuation HFA aerosol [...] this patient by: PATIENT Maria Alejandra Nolan (Professor Of Biochemistry) Problem List As Of Date 2024 Noted [...] Status:Closed by AURELIA ROSE on 08/31/24 Normal [facility] L3410.9998on 08-23-2024 [facility] Misc. Normal [facility] Comment on above: Order Comment: [id number] TRAMADOL Result Comment: TEST RESULTS LIMITS Tramadol, Urine Tramadol Positive Skonjx=542 Tramadol Conf, [place], [place] 2038 ng/mL Liqjix=430 Tramadol detected; this finding can be consistent with use of medications that include Ultram, Topalgic, Tradol, Zydol, or generic formulations. Drugs listed are canvas products sales representative of common sources of the compound detected and are not intended to include all possible sources. Please Note: Drug test results should be interpreted in the context of clinical information. Patient metabolic variables, specific drug chemistry, and specimen characteristics can affect test outcome. Technical consultation is available if a test result is inconsistent with an expected outcome. Email: [email or web address] TESTING PERFORMED AT [facility]. ORIGINAL REPORT ON FILE IN LAB CONTAINS ADDITIONAL TEST SITE INFORMATION. Performed By: #### L 3410.9998 #### [facility] [address] [place] [address]. [place], [address] L3410.9998on 08-12-2024 [facility] Comment on above: Order Comment: ADD O N PLEASE IF ABLE-SWRIGHT [id number] BUPENORPHINE Result Comment: TEST RESULTS LIMITS Buprenorphine, Urine Negative ng/mL Cutoff=10 TESTING PERFORMED AT [facility]. ORIGINAL REPORT ON FILE IN LAB CONTAINS ADDITIONAL TEST SITE INFORMATION. Performed By: #### L 3410.9998 #### [facility] [address] [facility] [place], [address] L3410.9998on 08-04-2024 [facility] Misc. COMMENT Normal . [facility] Comment on above: Order Comment: [id number] MEDTOX URINE Result Comment: Test Ordered: [id number] 6+Oxycodone-Bund Amphetamines, Urine Negative ng/mL UI Reference Range: Duggxh=3327 Amphetamine test includes Amphetamine and Methamphetamine. Barbiturate Negative ng/mL UI Reference Range: Kkradl=643 Benzodiazepines Negative ng/mL UI Reference Range: Qyalmk=400 Cannabinoids Negative ng/mL UI Reference Range: Cutoff=20 Cocaine (Metabolite) Negative ng/mL UI Reference Range: Slrccf=381 Opiates Negative ng/mL UI Reference Range: Jzntak=844 Opiate test includes Codeine, Morphine, Hydromorphone, Hydrocodone. Oxycodone/Oxymorphone, Urine Negative ng/mL UI Reference Range: Cuhlkx=142 Test includes Oxycodone and Oxymorphone Effective September 05, 2024, this test will be discontinued. Please contact your [facility] canvas products sales representative for suggested replacement test options. Performed at: [place] [address] [place], [place] [id number] Alkylation Operator: Tripp Bronson PhD, Phone: [phone] Performed at: [address] [id number] Alkylation Operator: Nadir Cartwright PhD, Phone: [phone] Performed By: #### L 505.5000, L3410.9998 #### [facility] [address] [place] [address]. [place], [address] Amphetamines Screen method > 1000 ng/mL Ql (U)Ordered By: Chin Paul on 08-02-2024 Amphetamines Ql (U) Negative <1000 ng/mL [facility] Urine Barbiturates Screen Negative < 200 ng/mL [facility] Methadone, urineOrdered By: Chin Paul on 08-02-2024 Urine Methadone Screen Negative < 300 ng/mL [facility] No Panel InformationOrdered By: Chin Paul on 08-02-2024 Urine Buprenorphine Qualitative Negative < 200 ng/mL [facility] Urine Oxycodone Screen Negative < 100 ng/mL [facility] Quantitative urine opiates m easurementOrdered By: Chin Paul on 08-02-2024 Opiates Ql (U) Negative < 300 ng/mL [facility] Urine Drug Screen (VISTA)on 08-02-2024 AMPHETAMINES Negative Normal <1000 ng/mL [facility] Comment on above: Order Comment: UNK Performed By: #### L 505.5000, L3410.9998 #### [facility] [address] [place], [address] BARBITIURATES Negative Normal < 200 ng/mL [facility] Comment on above: Order Comment: UNK Performed By: #### L 505.5000, L3410.9998 #### [facility] [address] [facility] [address] BENZODIAZIPINE Negative Normal < 200 ng/mL [facility] Comment on above: Order Comment: UNK Performed By: #### L 505.5000, L3410.9998 #### [facility] [address] [place] [address] BUP Ur Drug Scr Negative Normal < 200 ng/mL [facility] Comment on above: Order Comment: UNK Performed By: #### L 505.5000, L3410.9998 #### [facility] [address] [place], [address] COCAINE Negative Normal < 300 ng/mL [facility] Comment on above: Order Comment: UNK Performed By: #### L 505.5000, L3410.9998 #### [facility] [address] [place], [address] Fentanyl Negative Normal [facility] Comment on above: Order Comment: UNK Performed By: #### L 505.5000, L3410.9998 #### [facility] [address] [facility] [address] METHADONE Negative Normal < 300 ng/mL [facility] Comment on above: Order Comment: UNK Performed By: #### L 505.5000, L3410.9998 #### [facility] [address] [place], [address] OPIATES Negative Normal < 300 ng/mL [facility] Comment on above: Order Comment: UNK Performed By: #### L 505.5000, L3410.9998 #### [facility] [address] [place], [address] OXYCODONE Negative Normal < 100 ng/mL [facility] Comment on above: Order Comment: UNK Performed By: #### L 505.5000, L3410.9998 #### [facility] [address] [place], [address] PCP Negative Normal < 25 ng/mL [facility] Comment on above: Order Comment: UNK Performed By: #### L 505.5000, L3410.9998 #### [facility] [address] [place], [address] THC Negative Normal < 50 ng/mL [facility] Comment on above: Order Comment: UNK Performed By: #### L 505.5000, L3410.9998 #### [facility] [address] [place], [address] Urine benzodiazepine levelOr dered By: Chin Basali on 08-02-2024 Benzodiazepines Ql (U) Negative < 200 ng/mL [facility] Urine cocaine levelOrdered B y: Chin Basali on 08-02-2024 Cocaine Ql (U) Negative < 300 ng/mL [facility] Urine ymlqf-8-idyapyudbxhtsk abinol (THC) measurementOrdered By: Chin Basali on 08-02-2024 Cannabinoids Screen Ql (U) Negative < 50 ng/mL [facility] Urine phencyclidine (PCP) de tectionOrdered By: Chin Basali on 08-02-2024 Phencyclidine Ql (U) Negative < 25 ng/mL [facility] fentaNYL Screen Ql (U)Ordere d By: Chin Basali on 08-02-2024 Urine Fentanyl Screen Negative [facility] -------- KANDI CORREIA ([id number]) 1945 F Date Time Provider Department 04/14/24 LUIS JALYN Isals [facility] During your visit today, we recorded [...] tablets by mouth daily at bedtime. - hjhdvzpvsh-ybmtjkph-kbcu oterol (BREZTRI) 160-9-4.8 mcg/actuation HFA aerosol inhaler [...] this patient by: PATIENT Maria Alejandra Nolan (Professor Of Biochemistry) Problem List As Of Date 04/14/2024 Noted [...] Status:Closed by JUDY BORREGO on 04/14/24 Normal [facility] CBC W Auto Differential pane l (Bld)on 04-13-2024 Basophils (Bld) [#/Vol] 0.06 10*3/uL Normal <0.11 [facility] Comment on above: Order Comment: Speci men Type: BLOOD SPECIMENOrdering Facility: [facility] Address: [address] [place] [address] Performed By: #### 5 7021-8 ####[facility] [id number] [place] [address] [place] Basophils/100 WBC (Bld) 1.3 % Normal [facility] Comment on above: Order Comment: Speci men Type: BLOOD SPECIMENOrdering Facility: [facility] Address: [address] [place] [address] Performed By: #### 5 7021-8 ####[facility] [id number] [place] [address] [place] Differential cell count method Nom (Bld) Auto Normal [facility] Comment on above: Order Comment: Speci men Type: BLOOD SPECIMENOrdering Facility: [facility] Address: [address] [place] [address] Performed By: #### 5 7021-8 ####[facility] [id number] [place] [address] [place] Eosinophils (Bld) [#/Vol] 0.13 10*3/uL Normal <0.46 [facility] Comment on above: Order Comment: Speci men Type: BLOOD SPECIMENOrdering Facility: [facility] Address: [address] [place] [address] Performed By: #### 5 7021-8 ####[facility] [id number] [place] [address] [place] Eosinophils/100 WBC (Bld) 2.7 % Normal [facility] Comment on above: Order Comment: Speci men Type: BLOOD SPECIMENOrdering Facility: [facility] Address: [address] [place] [address] Performed By: #### 5 7021-8 ####[facility] [id number] [place] [address] [place] Erythrocyte distribution width (RBC) [Ratio] 13.2 % Normal 11.5-15.0 [facility] Comment on above: Order Comment: Speci men Type: BLOOD SPECIMENOrdering Facility: [facility] Address: [address] [place] [address] Performed By: #### 5 7021-8 ####[facility] [id number] [place] [address] [place] Hematocrit (Bld) [Volume fraction] 36.1 % Normal 36.0-46.0 [facility] Comment on above: Order Comment: Speci men Type: BLOOD SPECIMENOrdering Facility: [facility] Address: [address] [place] [address] Performed By: #### 5 7021-8 ####[facility] [id number] [place] [address] [place] Hemoglobin (Bld) [Mass/Vol] 11.0 g/dL Low 11.5-15.5 [facility] Comment on above: Order Comment: Speci men Type: BLOOD SPECIMENOrdering Facility: [facility] Address: [address] [place] [address] Performed By: #### 5 7021-8 ####[facility] [id number] [place] [address] [place] Immature granulocytes (Bld) [#/Vol] 10*3/uL Normal <0.10 [facility] Comment on above: Order Comment: Speci men Type: BLOOD SPECIMENOrdering Facility: [facility] Address: [address] [place] [address] Performed By: #### 5 7021-8 ####[facility] [id number] [place] [address] [place] Immature granulocytes/100 WBC (Bld) 0.0 % Normal [facility] Comment on above: Order Comment: Speci men Type: BLOOD SPECIMENOrdering Facility: [facility] Address: [address] [place] [address] Performed By: #### 5 7021-8 ####[facility] [id number] [place] [address] [place] Lymphocytes (Bld) [#/Vol] 0.78 10*3/uL Low 1.00-4.00 [facility] Comment on above: Order Comment: Speci men Type: BLOOD SPECIMENOrdering Facility: [facility] Address: [address] [place] [address] Performed By: #### 5 7021-8 ####[facility] [id number] [place] [address] [place] Lymphocytes/100 WBC (Bld) 16.4 % Normal [facility] Comment on above: Order Comment: Speci men Type: BLOOD SPECIMENOrdering Facility: [facility] Address: [address] [place] [address] Performed By: #### 5 7021-8 ####[facility] [id number] [place] [address] [place] MCH (RBC) [Entitic mass] 29.6 pg Normal 26.0-34.0 [facility] Comment on above: Order Comment: Speci men Type: BLOOD SPECIMENOrdering Facility: [facility] Address: [address] [place] [address] Performed By: #### 5 7021-8 ####[facility] [id number] [place] [address] [place] MCHC (RBC) [Mass/Vol] 30.5 g/dL Normal 30.5-36.0 [facility] Comment on above: Order Comment: Speci men Type: BLOOD SPECIMENOrdering Facility: [facility] Address: [address] [place] [address] Performed By: #### 5 7021-8 ####[facility] [id number] [place] [address] [place] MCV (RBC) [Entitic vol] 97.3 fL Normal 80.0-100.0 [facility] Comment on above: Order Comment: Speci men Type: BLOOD SPECIMENOrdering Facility: [facility] Address: [address] [place] [address] Performed By: #### 5 7021-8 ####[facility] [id number] [place] [address] [place] Monocytes (Bld) [#/Vol] 0.53 10*3/uL Normal <0.87 [facility] Comment on above: Order Comment: Speci men Type: BLOOD SPECIMENOrdering Facility: [facility] Address: [address] [place] [address] Performed By: #### 5 7021-8 ####[facility] [id number] [place] [address] [place] Monocytes/100 WBC (Bld) 11.2 % Normal [facility] Comment on above: Order Comment: Speci men Type: BLOOD SPECIMENOrdering Facility: [facility] Address: [address] [place] [address] Performed By: #### 5 7021-8 ####[facility] [id number] [place] [address] [place] Neutrophils (Bld) [#/Vol] 3.25 10*3/uL Normal 1.45-7.50 [facility] Comment on above: Order Comment: Speci men Type: BLOOD SPECIMENOrdering Facility: [facility] Address: [address] [place] [address] Performed By: #### 5 7021-8 ####[facility] [id number] [place] [address] [place] Neutrophils/100 WBC (Bld) 68.4 % Normal [facility] Comment on above: Order Comment: Speci men Type: BLOOD SPECIMENOrdering Facility: [facility] Address: [address] [place] [address] Performed By: #### 5 7021-8 ####[facility] [id number] [place] [address] [place] Nucleated RBC (Bld) [#/Vol] 10*3/uL Normal <0.01 [facility] Comment on above: Order Comment: Speci men Type: BLOOD SPECIMENOrdering Facility: [facility] Address: [address] [place] [address] Performed By: #### 5 7021-8 ####[facility] [id number] [place] [address] [place] Nucleated RBC/100 WBC (Bld) [Ratio] 0.0 /100 WBC Normal [facility] Comment on above: Order Comment: Speci men Type: BLOOD SPECIMENOrdering Facility: [facility] Address: [address] [place] [address] Performed By: #### 5 7021-8 ####[facility] [id number] [place] [address] [place] Platelet mean volume (Bld) [Entitic vol] 9.7 fL Normal 9.0-12.7 [facility] Comment on above: Order Comment: Speci men Type: BLOOD SPECIMENOrdering Facility: [facility] Address: [address] [place] [address] Performed By: #### 5 7021-8 ####[facility] [id number] [place] [address] [place] Platelets (Bld) [#/Vol] 227 10*3/uL Normal 150-400 [facility] Comment on above: Order Comment: Speci men Type: BLOOD SPECIMENOrdering Facility: [facility] Address: [address] [place] [address] Performed By: #### 5 7021-8 ####[facility] [id number] [place] [address] [place] RBC (Bld) [#/Vol] 3.71 10*6/uL Low 3.90-5.20 [facility] Comment on above: Order Comment: Speci men Type: BLOOD SPECIMENOrdering Facility: [facility] Address: [address] [place] [address] Performed By: #### 5 7021-8 ####[facility] [id number] [place] [address] [place] WBC (Bld) [#/Vol] 4.75 10*3/uL Normal 3.70-11.00 [facility] Comment on above: Order Comment: Speci men Type: BLOOD SPECIMENOrdering Facility: [facility] Address: [address] [place] [address] Performed By: #### 5 7021-8 ####[facility] [id number] [place] [address] [place] Magnesium SerPl-mCncon 04-13 Magnesium [Mass/Vol] 1.8 mg/dL Normal 1.7-2.3 [facility] Comment on above: Order Comment: Speci men Type: BLOOD SPECIMENOrdering Facility: [facility] Address: [address] [place] [address] Performed By: #### 1 9123-9 ####[facility] [id number] [place] [address] [place] [facility]PSofia [facility]) [facility] KANDI CORREIA ([id number]) 1945 F Date Time Provider Department 03/29/24 ZACKERY MAYFIELDROSAURA During your visit today, we recorded the following information about you: Kasey Hull MA 03/29/2024 3:27 PM [facility] and needs clarification for oxygen. Does [...] hypoxia (HCC) [J96.21] Order(s):OXYGEN FOR HOME USE [[id number]] Order #: [id number] Prescriptions as of 03/30/2024 - Magnesium Oxide [...] tablets by mouth daily at bedtime. 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 Mild diffuse atherosclerotic disease as detailed without hemodynamically significant stenosis. No acute process in the chest, abdomen or pelvis. University Relations Director: PSCB Transcribe Date/Time: Oct 14 2023 4:46P Dictated by : GINNY FAULKNER DO This examination was interpreted and the report reviewed and electronically signed by: ANN RUBIO MD on Oct 15 2023 1:07AM [facility] * * *Final Report* * * DATE OF EXAM: Oct 14 2023 2:22PM [facility] - CTA C/A/P (NONGATED) W IVCON [...] or fluid collection. Bones/Soft Tissues: Degenerative changes. [facility] Provider, [facility] - 10/15/2023 * * *Final Report* * * DATE OF EXAM: Oct 14 2023 2:22PM [facility] [place] - CTA C/A/P (NONGATED) W IVCON [...] Degenerative changes. IMPRESSION (more content not included)... [facility] CTA Chest vessels and Abdomi nal vessels and Pelvis vessels W contrast IVOrdered By: Ccf Provider on 10-15-2023 [facility] CTA Chest vessels and Abdomi nal vessels and Pelvis vessels W contrast Umer 10-14-2023 Radiology Study observation (narrative) [facility] OXIMETRY WITH AMBULATIONon 0 09-30-2023 Karen Vargas [...] September 30, 2023 TIME: 12:17 PM Comment: [facility] Vazquez 09-24-2023 ANNY Telephone (AGVASACC) -------- TAYLORKANDI ([id number]) 1945 F Date Time Provider Department 09/24/23 [...] Todd out in [place] coming to [place]. She wants to go to to see [place] and for the testing if it cannot be done at the [place] Location. I gave the patient the phone # to the [place] location but she stated it would not [...] this patient by: PATIENT Maria Alejandra Nolan (Professor Of Biochemistry) Problem List As Of Date 09/24/2023 Noted [...] Status:Closed by ANNE MARIE BANERJEE on 09/24/23 [facility] CNOVon 09-21-2023 CNOV Office Visit (AGVASA CC) -------- INGRIDBOLIVARKANDI ([id number]) 1945 F Date Time Provider Department 09/21/23 2:30 PM YANIV TODD During your visit today, we recorded the following information about you: Pulse Blood pressure Weight Height 93/minute 128/80 85.7 kg 1.626 m Yaniv Todd MD 09/21/2023 5:58 PM Signed [facility] OF VASCULAR SURGERY OUTPATIENT VISIT DATE September 21, 2023 OUTPATIENT VISIT TYPE CONSULTATION PRIMARY CARE PHYSICIAN: Jalyn Smith MD REFERRING PROVIDER: Jalyn Smith [id number] [facility] [id number] Consult requested for an opinion regarding the [...] date: 01/29/2012 (more content not included)... Normal 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 Mild infrahilar infiltrate on the right. Follow-up recommended University Relations Director: SWATI Transcribe Date/Time: Sep 09 2023 10:18A [...] soft tissues: Unremarkable. DIVISION OF RADIOLOGY Provider, [facility] - 09/09/2023 * * *Final Report* [...] infrahilar infiltrate on the right. Follow-up recommended University Relations Director: PSCB Transcribe Date/Time: Sep 09 2023 10:18A Dictated by : CLYDE RUIZ MD This examination was interpreted and the report reviewed and electronically signed by: CLYDE RUIZ MD on Sep 09 2023 10:20AM EST [facility] XR Chest PA and LateralOrder ed By: Ccf Provider on 09-09-2023 [facility] ALBUMIN/CREAT RATIO RND URon 09-08-2023 Albumin DL <= 20 mg/L (U) [Mass/Vol] [facility] Albumin/Creatinine (U) [Mass ratio] <30 mg/g [facility] Creatinine (U) [Mass/Vol] 100.7 mg/dL 20.0 - 300.0 mg/dL [facility] CBC W Auto Differential pane l (Bld)on 09-08-2023 Basophils (Bld) [#/Vol] 0.06 10*3/uL <0.11 k/uL [facility] Basophils/100 WBC (Bld) 0.8 % [facility] Differential cell count method Nom (Bld) Auto [facility] Eosinophils (Bld) [#/Vol] 0.09 10*3/uL <0.46 k/uL [facility] Eosinophils/100 WBC (Bld) 1.2 % [facility] Erythrocyte distribution width (RBC) [Ratio] 13.9 % 11.5 - 15.0 % [facility] Hematocrit (Bld) [Volume fraction] 33.6 % Low 36.0 - 46.0 % [facility] Hemoglobin (Bld) [Mass/Vol] 10.3 g/dL Low 11.5 - 15.5 g/dL [facility] Immature granulocytes (Bld) [#/Vol] 0.09 10*3/uL <0.10 k/uL [facility] Immature granulocytes/100 WBC (Bld) 1.2 % [facility] Lymphocytes (Bld) [#/Vol] 0.82 10*3/uL Low 1.00 - 4.00 k/uL [facility] Lymphocytes/100 WBC (Bld) 10.9 % [facility] MCH (RBC) [Entitic mass] 29.3 pg 26.0 - 34.0 pg [facility] MCHC (RBC) [Mass/Vol] 30.7 g/dL 30.5 - 36.0 g/dL [facility] MCV (RBC) [Entitic vol] 95.7 fL 80.0 - 100.0 fL [facility] Monocytes (Bld) [#/Vol] 0.81 10*3/uL <0.87 k/uL [facility] Monocytes/100 WBC (Bld) 10.7 % [facility] Neutrophils (Bld) [#/Vol] 5.67 10*3/uL 1.45 - 7.50 k/uL [facility] Neutrophils/100 WBC (Bld) 75.2 % [facility] Nucleated RBC (Bld) [#/Vol] <0.01 k/uL [facility] Nucleated RBC/100 WBC (Bld) [Ratio] 0.0 /100 WBC [facility] Platelet mean volume (Bld) [Entitic vol] 8.9 fL Low 9.0 - 12.7 fL [facility] Platelets (Bld) [#/Vol] 378 10*3/uL 150 - 400 k/uL [facility] RBC (Bld) [#/Vol] 3.51 10*6/uL Low 3.90 - 5.2 0 m/uL [facility] WBC (Bld) [#/Vol] 7.54 10*3/uL 3.70 - 11. 00 k/uL [facility] Comprehensive metabolic 2000 panelon 09-08-2023 Albumin [Mass/Vol] 3.6 g/dL Low 3.9 - 4.9 g/dL [facility] ALP [Catalytic activity/Vol] 82 U/L 34 - 123 U/L [facility] ALT [Catalytic activity/Vol] 9 U/L 7 - 38 U/L [facility] Anion gap [Moles/Vol] 12 mmol/L 9 - 18 mmol/L [facility] AST [Catalytic activity/Vol] 18 U/L 13 - 35 U/L [facility] Bilirubin [Mass/Vol] 0.3 mg/dL 0.2 - 1 .3 mg/dL [facility] Calcium [Mass/Vol] 9.2 mg/dL 8.5 - 10. 2 mg/dL [facility] Chloride [Moles/Vol] 94 mmol/L Low 97 - 10 5 mmol/L [facility] CO2 [Moles/Vol] 31 mmol/L High 22 - 30 mmol/L [facility] Creatinine [Mass/Vol] 1.03 mg/dL High 0.58 - 0.96 mg/dL [facility] Estimated Glomerular Filtration Rate 56 mL/min/1.73m Low >=60 mL/min/1.73m [facility] Glucose [Mass/Vol] 88 mg/dL 74 - 99 mg/dL [facility] Potassium [Moles/Vol] 3.9 mmol/L 3.7 - 5.1 mmol/L [facility] Protein [Mass/Vol] 6.4 g/dL 6.3 - 8.0 g/dL [facility] Sodium [Moles/Vol] 137 mmol/L 136 - 144 mmol/L [facility] Urea nitrogen [Mass/Vol] 21 mg/dL 7 - 21 mg/dL [facility] HbA1c (Bld)on 09-08-2023 Average glucose Estimated from glycated hemoglobin (Bld) [Mass/Vol] 117 mg/dL [facility] HbA1c (Bld) [Mass fraction] 5.7 % High 4.3 - 5.6 % [facility] LIPID PANEL, NONFASTINGon Cholesterol [Mass/Vol] 158 mg/dL <200 mg/dL [facility] HDL Cholesterol, Nonfasting 40 mg/dL >39 mg/dL [facility] LDL Cholesterol, Nonfasting 90 mg/dL <100 mg/dL [facility] LDL/HDL Ratio, Nonfasting 2.25 mg/dL <2.54 mg/dL [facility] Non HDL Cholesterol, Nonfasting 118 mg/dL <130 mg/dL [facility] Total Chol/HDL Ratio, Nonfasting 3.95 mg/dL <5.10 mg/dL [facility] Triglycerides, Nonfasting 138 mg/dL <150 mg/dL [facility] VLDL Cholesterol, Nonfasting 28 mg/dL <30 mg/dL [facility] XR Chest PA and Lateralon Radiology Study observation (narrative) [facility] Absolute lymphocyte countOrd ered By: Juni Ho on 08-28-2023 Lymphocytes Auto (Unsp spec) [#/Vol] 0.23 10*3/uL 0.83-4.51 [facility] Automated lymphocyte count a s percentage of total leukocytesOrdered By: Juni Ho on 08-28-2023 Lymphocytes/100 WBC Auto (Unsp spec) 1.8 % 19-41 [facility] Basophil percentageOrdered B y: Juni Ho on 08-28-2023 Basophils/100 WBC (Bld) 0.6 % 0-1 [facility] Bilirubin [Mass/Vol] 0.70 mg/dL 0.20-1.00 [facility] Comment on above: For patients on eltr ombopag therapy, use of Dimension [place] TBIL is not recommended. Chloride [Moles/Vol] 88 mmol/L 98-107 [facility] Eosinophils/100 WBC (Bld) 0.1 % 0-5 [facility] Glucose [Mass/Vol] 173 mg/dL 74-106 [facility] Comment on above: Fasting Glucose resu lt greater than or equal to 126 mg/dL suggests DIABETES MELLITUS per A.D.A. criteria. Hemoglobin (Bld) [Mass/Vol] 10.7 g/dL 12.0-15.0 [facility] Monocytes/100 WBC (Bld) 12.3 % 0-10 [facility] Neutrophils (Bld) [#/Vol] 10.7 10*3/uL 2.0-7.7 [facility] Neutrophils/100 WBC (Bld) 84.7 % 47-70 [facility] Potassium [Moles/Vol] 3.1 mmol/L 3.5-5.1 [facility] Protein [Mass/Vol] 7.2 g/dL 6.4-8.2 [facility] Sodium [Moles/Vol] 131 mmol/L 136-145 [facility] WBC (Bld) [#/Vol] 12.7 10*3/uL 4.4-11.0 [facility] Bilirubin Test strip Ql (U)O rdered By: Juni Ho on 08-28-2023 Bilirubin Ql (U) Negative Negative [facility] Blood manual differential co mment interpretation (narrative result)Ordered By: Juni Ho on 08-28-2023 Manual differential comment Lamin (Bld) [Interp] SCANNED [facility] Comment on above: LYMPHOPENIA NOTEDMON OCYTOSIS NOTED Determination of erythrocyte mean corpuscular volume (MCV)Ordered By: Juni Ho on 08-28-2023 MCV (RBC) [Entitic vol] 92.9 fL 81-99 [facility] Erythrocyte distribution wid th ratioOrdered By: Juni Ho on 08-28-2023 Erythrocyte distribution width (RBC) [Ratio] 13.3 % 11.6-14.6 [facility] Erythrocyte distribution wid th standard deviationOrdered By: Juni Ho on 08-28-2023 Erythrocyte distribution width (RBC) [Entitic vol] 45.3 fL 35.1-43.9 [facility] Hematocrit Auto (Bld) [Volum e fraction]Ordered By: Juni Ho on 08-28-2023 Hematocrit (Bld) [Volume fraction] 33.9 % 37-47 [facility] Immature granulocytes/100 WB C Auto (Bld)Ordered By: Juni Ho on 08-28-2023 Immature granulocytes/100 WBC (Bld) 0.500 % 0.0-0.9 [facility] Comment on above: IG% - Immature Granu locytes (promyelocytes, myelocytes and metamyelocytes) > 1% indicates that a LEFT SHIFT is Present. Ketones Test strip Ql (U)Ord ered By: Juni Ho on 08-28-2023 Ketones Ql (U) 5 mg/dl Negative [facility] Laboratory - Chemistry and C hemistry - challengeOrdered By: Juni Ho on 08-28-2023 Albumin/Globulin [Mass ratio] 0.6 {ratio} 0.9-2.4 [facility] ALP [Catalytic activity/Vol] 88 U/L 45-117 [facility] ALT [Catalytic activity/Vol] 13 U/L 13-56 [facility] CO2 [Moles/Vol] 37.0 mmol/L 21.0-32.0 [facility] Globulin (S) [Mass/Vol] 4.4 g/dL 2.2-4.2 [facility] Lipase [Catalytic activity/Vol] 14 U/L 13-75 [facility] Comment on above: Please note:LIPASE r evised reference range effective 22. New Lipase methodology. Expected to produce lower values than the previous assay method. NEW Reference Range: 13 - 75 U/L Urea nitrogen/Creatinine [Mass ratio] 23.3 mg/mg 10-20 [facility] Laboratory - Hematology and Cell countsOrdered By: Juni Ho on 08-28-2023 MCH (RBC) [Entitic mass] 29.3 pg 27.0-32.0 [facility] MCHC (RBC) [Mass/Vol] 31.6 g/dL 32-36 [facility] Nucleated RBC/100 WBC (Bld) [Ratio] 0 % 0-5 [facility] Platelet mean volume (Bld) [Entitic vol] 9.3 fL 6.2-12.0 [facility] Platelets (Bld) [#/Vol] 263 10*3/uL 150-450 [facility] Nitrite Test strip Ql (U)Ord ered By: Juni Ho on 08-28-2023 Nitrite Ql (U) Negative Negative [facility] No Panel InformationOrdered By: Juni Ho on 08-28-2023 Estimated GFR (MDRD) Amer 74 mL/min >60 [facility] Comment on above: GFR Calc Estimated GFR (MDRD) Non-Af Amer 61 mL/min >60 [facility] Comment on above: Non- GFR Calc Protein Test strip Ql (U)Ord ered By: Juni Ho on 08-28-2023 Protein Ql (U) 100 mg/dl Negative [facility] RBC Auto (Bld) [#/Vol]Ordere d By: Juni Ho on 08-28-2023 RBC (Bld) [#/Vol] 3.65 10*6/uL 4.2-5.4 [facility] Review by pathologistOrdered By: Juni Ho on 08-28-2023 Pathologist review Lamin (Unsp spec) [Interp] May foll [facility] Serum or plasma calcium norman urement (mass/volume)Ordered By: Juni Ho on 08-28-2023 Calcium [Mass/Vol] 9.5 mg/dL 8.5-10.1 [facility] Serum or plasma creatinine m easurement (mass/volume)Ordered By: Juni Ho on 08-28-2023 Creatinine [Mass/Vol] 0.94 mg/dL 0.55-1.02 [facility] Comment on above: The validity of the calculated GFR & GFRAA in patients over 70 years has not been determined. Clinical correlation is essential. Serum or plasma urea nitroge n measurement (mass/volume)Ordered By: Juni Ho on 08-28-2023 Urea nitrogen [Mass/Vol] 22 mg/dL 7-18 [facility] Thin prep Papanicolaou smear with manual screeningOrdered By: Juni Ho on 08-28-2023 Thin prep Papanicolaou smear with manual screening 2.8 g/dL 3.2-5.0 [facility] Thin prep Papanicolaou smear with manual screening 13 U/L 15-37 [facility] Thin prep Papanicolaou smear with manual screening 6 5-15 [facility] Urine blood detectionOrdered By: Juni Ho on 08-28-2023 RBC Ql (U) 50 /ul Negative [facility] Urine clarityOrdered By: Lonnie Ho on 08-28-2023 Clarity (U) Clear Clear [facility] Urine color determinationOrd ered By: Juni Ho on 08-28-2023 Color (U) Yellow Yellow [facility] Urine glucose detectionOrder ed By: Juni Ho on 08-28-2023 Glucose Ql (U) Normal mg/dl Normal [facility] Urine leukocyte esterase det ection by dipstickOrdered By: Juni Ho on 08-28-2023 Leukocyte esterase Test strip Ql (U) 25 /ul Negative [facility] Urine pHOrdered By: Juni garg on 08-28-2023 pH (U) 7.0 [pH] 5.0 - 8.0 [facility] Urine specific gravity measu rementOrdered By: Juni Ho on 08-28-2023 Specific gravity (U) [Rel density] 1.010 1.002-1.030 [facility] Urine urobilinogen measureme ntOrdered By: Juni Ho on 08-28-2023 Urobilinogen Ql (U) Normal mg/dl Normal [facility] Laboratory - Drug toxicology Ordered By: Chin Paul on 02-18-2023 Amphetamines Ql (U) Negative <1000 ng/mL [facility] Benzodiazepines Ql (U) Negative < 200 ng/mL [facility] Cannabinoids Screen Ql (U) Negative < 50 ng/mL [facility] Cocaine Ql (U) Negative < 300 ng/mL [facility] Opiates Ql (U) Positive < 300 ng/mL [facility] No Panel InformationOrdered By: Chin Paul on 02-18-2023 MDMA (Ecstasy) Screen Negative < 500 ng/mL [facility] Urine Barbiturates Screen Negative < 200 ng/mL [facility] Urine Drug Screen Comment [facility] Comment on above: CONFIRMATORY TESTING FOR [...] TESTING MUST BE ORDERED SEPARATELY. USE TESTMNEMONIC: [facility] Urine Methadone Screen Negative < 300 ng/mL [facility] Urine phencyclidine (PCP) de tectionOrdered By: Chin Paul on 02-18-2023 Phencyclidine Ql (U) Negative < 25 ng/mL [facility] CBC W Auto Differential pane l (Bld)on 01-13-2023 Basophils (Bld) [#/Vol] 0.04 10*3/uL <0.11 k/uL [facility] Basophils/100 WBC (Bld) 0.6 % [facility] Differential cell count method Nom (Bld) Auto [facility] Eosinophils (Bld) [#/Vol] 0.20 10*3/uL <0.46 k/uL [facility] Eosinophils/100 WBC (Bld) 3.1 % [facility] Erythrocyte distribution width (RBC) [Ratio] 13.2 % 11.5 - 15.0 % [facility] Hematocrit (Bld) [Volume fraction] 34.6 % Low 36.0 - 46.0 % [facility] Hemoglobin (Bld) [Mass/Vol] 10.7 g/dL Low 11.5 - 15.5 g/dL [facility] Immature granulocytes (Bld) [#/Vol] <0.10 k/uL [facility] Immature granulocytes/100 WBC (Bld) 0.3 % [facility] Lymphocytes (Bld) [#/Vol] 0.94 10*3/uL Low 1.00 - 4.00 k/uL [facility] Lymphocytes/100 WBC (Bld) 14.6 % [facility] MCH (RBC) [Entitic mass] 31.2 pg 26.0 - 34.0 pg [facility] MCHC (RBC) [Mass/Vol] 30.9 g/dL 30.5 - 36.0 g/dL [facility] MCV (RBC) [Entitic vol] 100.9 fL High 80.0 - 100.0 fL [facility] Monocytes (Bld) [#/Vol] 0.81 10*3/uL <0.87 k/uL [facility] Monocytes/100 WBC (Bld) 12.6 % [facility] Neutrophils (Bld) [#/Vol] 4.43 10*3/uL 1.45 - 7.50 k/uL [facility] Neutrophils/100 WBC (Bld) 68.8 % [facility] Nucleated RBC (Bld) [#/Vol] <0.01 k/uL [facility] Nucleated RBC/100 WBC (Bld) [Ratio] 0.0 /100 WBC [facility] Platelet mean volume (Bld) [Entitic vol] 10.1 fL 9.0 - 12.7 fL [facility] Platelets (Bld) [#/Vol] 230 10*3/uL 150 - 400 k/uL [facility] RBC (Bld) [#/Vol] 3.43 10*6/uL Low 3.90 - 5.2 0 m/uL [facility] WBC (Bld) [#/Vol] 6.44 10*3/uL 3.70 - 11. 00 k/uL [facility] Glucose Glucometer (BldC) [M ass/Vol]Ordered By: Gustavo Justice on 01-02-2023 Glucose [Mass/Vol] 115 mg/dL 74-106 [facility] Comment on above: MANAGEMENT OF PATIEN T CARE PER NURSING PROTOCOL Absolute lymphocyte countOrd ered By: Gustavo Justice on 12-30-2022 Lymphocytes Auto (Unsp spec) [#/Vol] 1.25 10*3/uL 0.83-4.51 [facility] Basophil percentageOrdered B y: Gustavo Justice on 12-30-2022 Basophils/100 WBC (Bld) 1.0 % 0-1 [facility] Chloride [Moles/Vol] 94 mmol/L 98-107 [facility] Eosinophils/100 WBC (Bld) 3.1 % 0-5 [facility] Glucose [Mass/Vol] 101 mg/dL 74-106 [facility] Comment on above: Fasting Glucose resu lt from 100 to 125 mg/dL suggests IMPAIRED HOMEOSTASIS per A.D.A. criteria. Neutrophils (Bld) [#/Vol] 2.9 10*3/uL 2.0-7.7 [facility] Neutrophils/100 WBC (Bld) 55.5 % 47-70 [facility] Potassium [Moles/Vol] 3.5 mmol/L 3.5-5.1 [facility] Sodium [Moles/Vol] 136 mmol/L 136-145 [facility] WBC (Bld) [#/Vol] 5.1 10*3/uL 4.4-11.0 [facility] Blood erythrocytes count (nu mber/volume)Ordered By: Gustavo Justice on 12-30-2022 RBC (Bld) [#/Vol] 3.48 10*6/uL 4.2-5.4 [facility] Blood hemoglobin measurement (mass/volume)Ordered By: Gustavo Justice on 12-30-2022 Hemoglobin (Bld) [Mass/Vol] 10.6 g/dL 12.0-15.0 [facility] Blood lymphocytes/100 leukoc ytesOrdered By: Gustavo Justice on 12-30-2022 Lymphocytes/100 WBC (Bld) 24.4 % 19-41 [facility] Blood monocytes/100 leukocyt esOrdered By: Gustavo Justice on 12-30-2022 Monocytes/100 WBC (Bld) 15.2 % 0-10 [facility] Blood platelet mean volumeOr dered By: Gustavo Justice on 12-30-2022 Platelet mean volume (Bld) [Entitic vol] 8.9 fL 6.2-12.0 [facility] Determination of erythrocyte mean corpuscular volume (MCV)Ordered By: Gustavo Justice 12-30-2022 MCV (RBC) [Entitic vol] 100.6 fL 81-99 [facility] Hematocrit Auto (Bld) [Volum e fraction]Ordered By: Gustavo Justice on 12-30-2022 Hematocrit (Bld) [Volume fraction] 35.0 % 37-47 [facility] Laboratory - Chemistry and C hemistry - challengeOrdered By: Gustavo Justice on 12-30-2022 CO2 [Moles/Vol] 40.0 mmol/L 21.0-32.0 [facility] Urea nitrogen/Creatinine [Mass ratio] 26.4 mg/mg 10-20 [facility] Laboratory - Hematology and Cell countsOrdered By: Gustavo Justice 12-30-2022 Erythrocyte distribution width (RBC) [Entitic vol] 49.3 fL 35.1-43.9 [facility] Erythrocyte distribution width (RBC) [Ratio] 13.4 % 11.6-14.6 [facility] Immature granulocytes/100 WBC (Bld) 0.800 % 0.0-0.9 [facility] Comment on above: IG% - Immature Granu locytes (promyelocytes, myelocytes and metamyelocytes) > 1% indicates that a LEFT SHIFT is Present. MCH (RBC) [Entitic mass] 30.5 pg 27.0-32.0 [facility] Nucleated RBC/100 WBC (Bld) [Ratio] 0 % 0-5 [facility] MCHC Auto (RBC) [Mass/Vol]Or dered By: Gustavo Justice on 12-30-2022 MCHC (RBC) [Mass/Vol] 30.3 g/dL 32-36 [facility] No Panel InformationOrdered By: Gustavo Justice on 12-30-2022 Estimated Creatinine Clearance Calc 42.25 ml/min [facility] Estimated GFR (MDRD) Amer 78 mL/min >60 [facility] Comment on above: GFR Calc Estimated GFR (MDRD) Non-Af Amer 64 mL/min >60 [facility] Comment on above: Non- GFR Calc Platelets bldOrdered By: Gustavo Justice on 12-30-2022 Platelets (Bld) [#/Vol] 256 10*3/uL 150-450 [facility] Serum or plasma calcium norman urement (mass/volume)Ordered By: Gustavo Justice on 12-30-2022 Calcium [Mass/Vol] 8.9 mg/dL 8.5-10.1 [facility] Serum or plasma creatinine m easurement (mass/volume)Ordered By: Gustavo Justice on 12-30-2022 Creatinine [Mass/Vol] 0.91 mg/dL 0.55-1.02 [facility] Comment on above: The validity of the calculated GFR & GFRAA in patients over 70 years has not been determined. Clinical correlation is essential. Serum or plasma urea nitroge n measurement (mass/volume)Ordered By: Gustavo Justice on 12-30-2022 Urea nitrogen [Mass/Vol] 24 mg/dL 7-18 [facility] Thin prep Papanicolaou smear with manual screeningOrdered By: Gustavo Justice on 12-30-2022 Thin prep Papanicolaou smear with manual screening 2 5-15 [facility] Glucose Glucometer (BldC) [M ass/Vol]Ordered By: Chris Deshpande on 12-15-2022 Glucose [Mass/Vol] 148 mg/dL 74-106 [facility] Comment on above: MANAGEMENT OF PATIEN T CARE PER NURSING PROTOCOL Absolute lymphocyte countOrd ered By: Angle Latham on 12-13-2022 Lymphocytes Auto (Unsp spec) [#/Vol] 0.87 10*3/uL 0.83-4.51 [facility] Basophil percentageOrdered B y: Angle Latham on 12-13-2022 Basophils/100 WBC (Bld) 0.7 % 0-1 [facility] Eosinophils/100 WBC (Bld) 2.1 % 0-5 [facility] Neutrophils (Bld) [#/Vol] 6.2 10*3/uL 2.0-7.7 [facility] Neutrophils/100 WBC (Bld) 74.0 % 47-70 [facility] WBC (Bld) [#/Vol] 8.4 10*3/uL 4.4-11.0 [facility] Blood erythrocytes count (nu mber/volume)Ordered By: Angle Latham on 12-13-2022 RBC (Bld) [#/Vol] 3.54 10*6/uL 4.2-5.4 [facility] Blood hemoglobin measurement (mass/volume)Ordered By: Angle Latham on 12-13-2022 Hemoglobin (Bld) [Mass/Vol] 10.8 g/dL 12.0-15.0 [facility] Blood lymphocytes/100 leukoc ytesOrdered By: Angle Latham on 12-13-2022 Lymphocytes/100 WBC (Bld) 10.3 % 19-41 [facility] Blood monocytes/100 leukocyt esOrdered By: Angle Latham on 12-13-2022 Monocytes/100 WBC (Bld) 9.5 % 0-10 [facility] Blood platelet adequacy dete ction by light microscopyOrdered By: Angle Latham on 12-13-2022 Platelets LM Ql (Bld) ADEQUATE ADEQ [facility] Blood platelet mean volumeOr dered By: Angle Latham on 12-13-2022 Platelet mean volume (Bld) [Entitic vol] 9.2 fL 6.2-12.0 [facility] Determination of erythrocyte mean corpuscular volume (MCV)Ordered By: Angle Latham on 12-13-2022 MCV (RBC) [Entitic vol] 100.3 fL 81-99 [facility] Hematocrit Auto (Bld) [Volum e fraction]Ordered By: Angle Latham on 12-13-2022 Hematocrit (Bld) [Volume fraction] 35.5 % 37-47 [facility] Laboratory - Hematology and Cell countsOrdered By: Angle Latham on 12-13-2022 Erythrocyte distribution width (RBC) [Entitic vol] 48.5 fL 35.1-43.9 [facility] Erythrocyte distribution width (RBC) [Ratio] 13.1 % 11.6-14.6 [facility] Immature granulocytes/100 WBC (Bld) 3.400 % 0.0-0.9 [facility] Comment on above: IG% - Immature Granu locytes (promyelocytes, myelocytes and metamyelocytes) > 1% indicates that a LEFT SHIFT is Present. MCH (RBC) [Entitic mass] 30.5 pg 27.0-32.0 [facility] Nucleated RBC/100 WBC (Bld) [Ratio] 0 % 0-5 [facility] MCHC Auto (RBC) [Mass/Vol]Or dered By: Angle Latham on 12-13-2022 MCHC (RBC) [Mass/Vol] 30.4 g/dL 32-36 [facility] Macrocytes detectionOrdered By: Angle Latham on 12-13-2022 Macrocytes Ql (Bld) 1+ [facility] Platelets bldOrdered By: Toma Latham on 12-13-2022 Platelets (Bld) [#/Vol] 304 10*3/uL 150-450 [facility] Basophil percentageOrdered B y: Angle Latham on 12-12-2022 Chloride [Moles/Vol] 98 mmol/L 98-107 [facility] Glucose [Mass/Vol] 139 mg/dL 74-106 [facility] Comment on above: Fasting Glucose resu lt greater than or equal to 126 mg/dL suggests DIABETES MELLITUS per A.D.A. criteria. Potassium [Moles/Vol] 3.8 mmol/L 3.5-5.1 [facility] Sodium [Moles/Vol] 140 mmol/L 136-145 [facility] Laboratory - Chemistry and C hemistry - challengeOrdered By: Angle Latham on 12-12-2022 CO2 [Moles/Vol] 38.0 mmol/L 21.0-32.0 [facility] Urea nitrogen/Creatinine [Mass ratio] 23.0 mg/mg 10-20 [facility] No Panel InformationOrdered By: Angle Latham on 12-12-2022 Estimated Creatinine Clearance Calc 38.44 ml/min [facility] Estimated GFR (MDRD) Amer 99 mL/min >60 [facility] Comment on above: GFR Calc Estimated GFR (MDRD) Non-Af Amer 82 mL/min >60 [facility] Comment on above: Non- GFR Calc Serum or plasma calcium norman urement (mass/volume)Ordered By: Angle Latham on 12-12-2022 Calcium [Mass/Vol] 8.7 mg/dL 8.5-10.1 [facility] Serum or plasma creatinine m easurement (mass/volume)Ordered By: Angle Latham on 12-12-2022 Creatinine [Mass/Vol] 0.74 mg/dL 0.55-1.02 [facility] Comment on above: The validity of the calculated GFR & GFRAA in patients over 70 years has not been determined. Clinical correlation is essential. Serum or plasma urea nitroge n measurement (mass/volume)Ordered By: Angle Latham on 12-12-2022 Urea nitrogen [Mass/Vol] 17 mg/dL 7-18 [facility] Thin prep Papanicolaou smear with manual screeningOrdered By: Angle Latham on 12-12-2022 Thin prep Papanicolaou smear with manual screening 4 5-15 [facility] Hemoglobin in reticulocytes (mass per reticulocyte)Ordered By: Burke Patterson on 12-11-2022 Hemoglobin (Reticulocytes) [Entitic mass] 31.9 pg 30-35 [facility] Iron measurement (mass/mass) Ordered By: Burke Patterson on 12-11-2022 Iron (Unsp spec) [Mass/Mass] 39 ug/dL 50-170 [facility] Laboratory - Chemistry and C hemistry - challengeOrdered By: Burke Patterson on 12-11-2022 Cobalamin (Vitamin B12) [Mass/Vol] 416 pg/mL 211-911 [facility] Lower GI hemoglobin IA Ql (S tl)Ordered By: Burke Patterson on 12-11-2022 Stool Occult Blood (SHENA) Positive [facility] No Panel InformationOrdered By: Burke Patterson on 12-11-2022 Immature Reticulocyte Fraction 16.40 % 3.00-15.90 [facility] Reticulocyte Count 1.41 % 0.5-1.5 [facility] Total Iron Binding Capacity 221 ug/dL 250-450 [facility] Vitamin D 25-Hydroxy 19.4 ng/mL [facility] Comment on above: Vitamin D 25(OH) Sta tus Range Deficiency <20 ng/mL (50nmol/L) Insufficiency 20 - 30 ng/mL (50 - 75 nmol/L) Sufficiency 30 - 100 ng/mL (75 - 250 nmol/L) Toxicity >100 ng/mL (>250 nmol/L) Serum or plasma ferritin shari surement (mass/volume)Ordered By: Burke Patterson on 12-11-2022 Ferritin [Mass/Vol] 746 ng/mL 8-252 [facility] Serum or plasma folate measu rement (mass/volume)Ordered By: Burke Patterson on 12-11-2022 Folate [Mass/Vol] 6.60 ng/mL 3.1-55.4 [facility] Serum or plasma iron saturat ion measurement (mass fraction)Ordered By: Burke Patterson on 12-11-2022 Iron saturation [Mass fraction] 17.6 % 15.0-55.0 [facility] Absolute lymphocyte countOrd ered By: Hector Fields on 12-10-2022 Lymphocytes Auto (Unsp spec) [#/Vol] 0.97 10*3/uL 0.83-4.51 [facility] Basophil percentageOrdered B y: Hector Fields on 12-10-2022 Basophil percentage 0-5 SEEN /hpf 0-5 [facility] Basophils/100 WBC (Bld) 0.5 % 0-1 [facility] Chloride [Moles/Vol] 90 mmol/L 98-107 [facility] Eosinophils/100 WBC (Bld) 0.6 % 0-5 [facility] Glucose [Mass/Vol] 107 mg/dL 74-106 [facility] Comment on above: Fasting Glucose resu lt from 100 to 125 mg/dL suggests IMPAIRED HOMEOSTASIS per A.D.A. criteria. Lactate [Moles/Vol] 1.2 mmol/L 0.4-2.0 [facility] Neutrophils (Bld) [#/Vol] 8.2 10*3/uL 2.0-7.7 [facility] Neutrophils/100 WBC (Bld) 74.0 % 47-70 [facility] Potassium [Moles/Vol] 3.5 mmol/L 3.5-5.1 [facility] Sodium [Moles/Vol] 135 mmol/L 136-145 [facility] WBC (Bld) [#/Vol] 11.1 10*3/uL 4.4-11.0 [facility] Bilirubin Test strip Ql (U)O rdered By: Hector Fields on 12-10-2022 Bilirubin Ql (U) Negative Negative [facility] Blood erythrocytes count (nu mber/volume)Ordered By: Hector Fields on 12-10-2022 RBC (Bld) [#/Vol] 3.60 10*6/uL 4.2-5.4 [facility] Blood hemoglobin measurement (mass/volume)Ordered By: Hector Fields on 12-10-2022 Hemoglobin (Bld) [Mass/Vol] 11.0 g/dL 12.0-15.0 [facility] Blood lymphocytes/100 leukoc ytesOrdered By: Hector Fields on 12-10-2022 Lymphocytes/100 WBC (Bld) 8.7 % 19-41 [facility] Blood monocytes/100 leukocyt esOrdered By: Hector Fields on 12-10-2022 Monocytes/100 WBC (Bld) 12.0 % 0-10 [facility] Blood platelet mean volumeOr dered By: Hector Fields on 12-10-2022 Platelet mean volume (Bld) [Entitic vol] 9.4 fL 6.2-12.0 [facility] Culture, urineOrdered By: Juan F Fields on 12-10-2022 Bacteria identified Cx Nom (U) Klebsiella aerogenes [facility] Determination of erythrocyte mean corpuscular volume (MCV)Ordered By: Hector Fields on 12-10-2022 MCV (RBC) [Entitic vol] 99.7 fL 81-99 [facility] HCO3 (BldA) [Moles/Vol]Order ed By: Hector Fields on 12-10-2022 HCO3 (Bld) [Moles/Vol] 39 mmol/L 22-26 [facility] Hematocrit Auto (Bld) [Volum e fraction]Ordered By: Hector Fields on 12-10-2022 Hematocrit (Bld) [Volume fraction] 35.9 % 37-47 [facility] Ketones Test strip Ql (U)Ord ered By: Hector Fields on 12-10-2022 Ketones Ql (U) 15 mg/dl Negative [facility] Laboratory - Chemistry and C hemistry - challengeOrdered By: Hector Fields on 12-10-2022 CO2 [Moles/Vol] 40 mmol/L 23-33 [facility] CO2 [Moles/Vol] 39.0 mmol/L 21.0-32.0 [facility] Natriuretic peptide B (Bld) [Mass/Vol] 113.3 pg/mL 0-100 [facility] Urea nitrogen/Creatinine [Mass ratio] 19.4 mg/mg 10-20 [facility] Laboratory - Hematology and Cell countsOrdered By: Hector Fields on 12-10-2022 Erythrocyte distribution width (RBC) [Entitic vol] 46.9 fL 35.1-43.9 [facility] Erythrocyte distribution width (RBC) [Ratio] 12.7 % 11.6-14.6 [facility] Immature granulocytes/100 WBC (Bld) 4.200 % 0.0-0.9 [facility] Comment on above: IG% - Immature Granu locytes (promyelocytes, myelocytes and metamyelocytes) > 1% indicates that a LEFT SHIFT is Present. MCH (RBC) [Entitic mass] 30.6 pg 27.0-32.0 [facility] Nucleated RBC/100 WBC (Bld) [Ratio] 0 % 0-5 [facility] MCHC Auto (RBC) [Mass/Vol]Or dered By: Hector Fields on 12-10-2022 MCHC (RBC) [Mass/Vol] 30.6 g/dL 32-36 [facility] Mucus LM Ql (Urine sed)Order ed By: Hector Fields on 12-10-2022 Mucus Ql (Urine sed) 0 SEEN /hpf [facility] Nitrite Test strip Ql (U)Ord ered By: Hector Fields on 12-10-2022 Nitrite Ql (U) Negative Negative [facility] No Panel InformationOrdered By: Hector Fields on 12-10-2022 Bed Mix Venous Bld PCO2 at Pat Temp 55.3 mmHg 41-51 [facility] Blood Gas Liter Flow 3.0 /min [facility] Blood Gas Specimen Type [facility] Oxygen Delivery Device Cannula [facility] Venous Blood Base Excess 15 mmol/L -1.0-3.5 [facility] Estimated Creatinine Clearance Calc 24.80 ml/min [facility] Estimated GFR (MDRD) Amer 42 mL/min >60 [facility] Comment on above: GFR Calc Estimated GFR (MDRD) Non-Af Amer 35 mL/min >60 [facility] Comment on above: Non- GFR Calc Troponin I High Sensitivity 11 pg/mL 3.0-54.0 [facility] Comment on above: Please Note: New Jennifer t Units and Gender Specific Reference Ranges. For more information see Policy Stat Procedure [place] High Sensitivity Troponin (TNIH) and attachments. PO2 venousOrdered By: Hector Fields on 12-10-2022 Oxygen (BldV) [Partial pressure] 37 mm[Hg] 25-40 [facility] Platelets bldOrdered By: Martin Fields on 12-10-2022 Platelets (Bld) [#/Vol] 306 10*3/uL 150-450 [facility] Protein Test strip Ql (U)Ord ered By: Hector Fields on 12-10-2022 Protein Ql (U) 30 mg/dl Negative [facility] Serum or plasma calcium norman urement (mass/volume)Ordered By: Hector Fields on 12-10-2022 Calcium [Mass/Vol] 9.6 mg/dL 8.5-10.1 [facility] Serum or plasma creatinine m easurement (mass/volume)Ordered By: Hector Fields on 12-10-2022 Creatinine [Mass/Vol] 1.55 mg/dL 0.55-1.02 [facility] Comment on above: The validity of the calculated GFR & GFRAA in patients over 70 years has not been determined. Clinical correlation is essential. Serum or plasma urea nitroge n measurement (mass/volume)Ordered By: Hector Fields on 12-10-2022 Urea nitrogen [Mass/Vol] 30 mg/dL 7-18 [facility] Squamous epithelial cells de tection in urine sediment by light microscopyOrdered By: Hector Fields on 12-10-2022 Epithelial cells.squamous LM Ql (Urine sed) 0-5 SEEN /hpf 5-10 [facility] Thin prep Papanicolaou smear with manual screeningOrdered By: Hector Fields on 12-10-2022 Thin prep Papanicolaou smear with manual screening 6 5-15 [facility] Urine blood detectionOrdered By: Hector Fields on 12-10-2022 RBC Ql (U) 50 /ul Negative [facility] RBC Ql (U) 0-5 SEEN /hpf 0-5 [facility] Urine clarityOrdered By: Martin Fields on 12-10-2022 Clarity (U) Clear Clear [facility] Urine color determinationOrd ered By: Hector Fields on 12-10-2022 Color (U) Yellow Yellow [facility] Urine glucose detectionOrder ed By: Hector Fields on 12-10-2022 Glucose Ql (U) Normal mg/dl Normal [facility] Urine leukocyte esterase det ection by dipstickOrdered By: Hector Fields on 12-10-2022 Leukocyte esterase Test strip Ql (U) 100 /ul Negative [facility] Urine pHOrdered By: Hector chávez on 12-10-2022 pH (U) 7.0 [pH] 5.0 - 8.0 [facility] Urine sediment bacteria coun t by microscopy (number/high power field)Ordered By: Hector Fields on 12-10-2022 Bacteria LM.HPF (Urine sed) [#/Area] 0 /[HPF] None Seen [facility] Urine specific gravity measu rementOrdered By: Hector Fields on 12-10-2022 Specific gravity (U) [Rel density] 1.010 1.002-1.030 [facility] Urobilinogen Auto test strip Ql (U)Ordered By: Hector Fields on 12-10-2022 Urobilinogen Ql (U) Normal mg/dl Normal [facility] Vital signsOrdered By: Chely Fields on 12-10-2022 Oxygen saturation in Blood 71 % 50-70 [facility] pH measurementOrdered By: Juan F Fields on 12-10-2022 pH (Unsp spec) 7.45 [pH] 7.32-7.42 [facility] Anaerobic cultureOrdered By: Dr. Magallon on 07-29-2022 Bacteria identified Anaer cx Nom (Unsp spec) No anaerobic bacteria isolated. [facility] Bacteria identified Cx Nom ( Wound)Ordered By: Dr. Magallon on 07-28-2022 Wound Culture Staphylococcus aureus [facility] Gram stain for investigation of transfusion reactionOrdered By: Dr. Magallon on 07-26-2022 Microscopic observation Gram stain Nom (Unsp spec) [facility] No Panel Informationon 04-18 [facility] Absolute lymphocyte counton 09-26-2021 Lymphocytes Auto (Unsp spec) [#/Vol] 1.18 10*3/uL 0.83-4.51 [facility] Work Phone: Bacteria identified Anaer cx Nom (Unsp spec)on 09-26-2021 Anaerobic microbial culture No anaerobic bacteria isolated. [facility] Work Phone: Bacteria identified Cx Nom ( Wound)on 09-26-2021 Wound Culture Staphylococcus epidermidis [facility] Work Phone: Basophil percentageon 2021 Basophils/100 WBC (Bld) 0.8 % 0-1 [facility] Work Phone: Bilirubin [Mass/Vol] 0.40 mg/dL 0.20-1.00 [facility] Work Phone: Comment on above: For patients on eltr ombopag therapy, use of Dimension [place] TBIL is not recommended. Chloride [Moles/Vol] 96 mmol/L 98-107 [facility] Work Phone: Eosinophils/100 WBC (Bld) 2.6 % 0-5 [facility] Work Phone: Glucose [Mass/Vol] 116 mg/dL 74-106 [facility] Work Phone: Comment on above: Fasting Glucose resu lt from 100 to 125 mg/dL suggests IMPAIRED HOMEOSTASIS per A.D.A. criteria. Neutrophils (Bld) [#/Vol] 5.4 10*3/uL 2.0-7.7 [facility] Work Phone: Neutrophils/100 WBC (Bld) 69.3 % 47-70 [facility] Work Phone: Potassium [Moles/Vol] 3.9 mmol/L 3.5-5.1 [facility] Work Phone: Protein [Mass/Vol] 7.6 g/dL 6.4-8.2 [facility] Work Phone: Sodium [Moles/Vol] 138 mmol/L 136-145 [facility] Work Phone: WBC (Bld) [#/Vol] 7.7 10*3/uL 4.4-11.0 [facility] Work Phone: Blood erythrocytes count (nu mber/volume)on 09-26-2021 RBC (Bld) [#/Vol] 4.00 10*6/uL 4.2-5.4 [facility] Work Phone: [phone] Blood hemoglobin measurement (mass/volume)on 09-26-2021 Hemoglobin (Bld) [Mass/Vol] 12.3 g/dL 12.0-15.0 [facility] Work Phone: Blood lymphocytes/100 leukoc yteson 09-26-2021 Lymphocytes/100 WBC (Bld) 15.3 % 19-41 [facility] Work Phone: Blood monocytes/100 leukocyt eson 09-26-2021 Monocytes/100 WBC (Bld) 11.6 % 0-10 [facility] Work Phone: Blood platelet mean volumeon 09-26-2021 Platelet mean volume (Bld) [Entitic vol] 9.0 fL 6.2-12.0 [facility] Work Phone: Determination of erythrocyte mean corpuscular volume (MCV)on 09-26-2021 MCV (RBC) [Entitic vol] 96.5 fL 81-99 [facility] Work Phone: Erythrocyte sedimentation ra puja 09-26-2021 ESR (Bld) [Velocity] 29 mm/h 0-30 [facility] Work Phone: Gram stain for investigation of transfusion reactionon 09-26-2021 Microscopic observation Gram stain Nom (Unsp spec) [facility] Work Phone: Hematocrit Auto (Bld) [Volum e fraction]on 09-26-2021 Hematocrit (Bld) [Volume fraction] 38.6 % 37-47 [facility] Work Phone: Laboratory - Chemistry and C hemistry - challengeon 09-26-2021 ALP [Catalytic activity/Vol] 88 U/L 45-117 [facility] Work Phone: ALT [Catalytic activity/Vol] 22 U/L 13-56 [facility] Work Phone: CO2 [Moles/Vol] 37.0 mmol/L 21.0-32.0 [facility] Work Phone: Globulin (S) [Mass/Vol] 3.8 g/dL 2.2-4.2 [facility] Work Phone: Urea nitrogen/Creatinine [Mass ratio] 34.5 mg/mg 10-20 [facility] Work Phone: Laboratory - Hematology and Cell countson 09-26-2021 Erythrocyte distribution width (RBC) [Entitic vol] 46.0 fL 35.1-43.9 [facility] Work Phone: Erythrocyte distribution width (RBC) [Ratio] 12.9 % 11.6-14.6 [facility] Work Phone: Immature granulocytes/100 WBC (Bld) 0.400 % 0.0-0.9 [facility] Work Phone: Comment on above: IG% - Immature Granu locytes (promyelocytes, myelocytes and metamyelocytes) > 1% indicates that a LEFT SHIFT is Present. MCH (RBC) [Entitic mass] 30.8 pg 27.0-32.0 [facility] Work Phone: Nucleated RBC/100 WBC (Bld) [Ratio] 0 % 0-5 [facility] Work Phone: MCHC Auto (RBC) [Mass/Vol]on 09-26-2021 MCHC (RBC) [Mass/Vol] 31.9 g/dL 32-36 [facility] Work Phone: No Panel Informationon 09-26 Estimated Creatinine Clearance Calc 42.62 ml/min [facility] Work Phone: Estimated GFR (MDRD) Amer 92 mL/min >60 [facility] Work Phone: Comment on above: GFR Calc Estimated GFR (MDRD) Non-Af Amer 76 mL/min >60 [facility] Work Phone: Comment on above: Non- GFR Calc Platelets bldon 09-26-2021 Platelets (Bld) [#/Vol] 262 10*3/uL 150-450 [facility] Work Phone: Serum or plasma albumin norman urement (mass/volume)on 09-26-2021 Albumin [Mass/Vol] 3.8 g/dL 3.2-5.0 [facility] Work Phone: Serum or plasma albumin/glob ulin mass ratioon 09-26-2021 Albumin/Globulin [Mass ratio] 1.0 {ratio} 0.9-2.4 [facility] Work Phone: Serum or plasma calcium norman urement (mass/volume)on 09-26-2021 Calcium [Mass/Vol] 9.1 mg/dL 8.5-10.1 [facility] Work Phone: Serum or plasma creatinine m easurement (mass/volume)on 09-26-2021 Creatinine [Mass/Vol] 0.78 mg/dL 0.55-1.02 [facility] Work Phone: Comment on above: The validity of the calculated GFR & GFRAA in patients over 70 years has not been determined. Clinical correlation is essential. Serum or plasma transthyreti n measurement (mass/volume)on 09-26-2021 Prealbumin [Mass/Vol] 20.2 mg/dL 20.0-40.0 [facility] Work Phone: Serum or plasma urea nitroge n measurement (mass/volume)on 09-26-2021 Urea nitrogen [Mass/Vol] 27 mg/dL 7-18 [facility] Work Phone: Thin prep Papanicolaou smear with manual screeningon 09-26-2021 Thin prep Papanicolaou smear with manual screening 21 U/L 15-37 [facility] Work Phone: Thin prep Papanicolaou smear with manual screening 5 5-15 [facility] Work Phone: Whole blood hemoglobin A1c/t otal hemoglobin ratio (mass fraction)on 09-26-2021 HbA1c (Bld) [Mass fraction] 6.0 % 3.8-5.6 [facility] Work Phone: Comment on above: Normal < 5.7 % Predi abetic 5.7 - 6.4 % Diabetic >or= 6.5 % Please note range changes. Absolute lymphocyte counton 08-09-2021 Lymphocytes Auto (Unsp spec) [#/Vol] 0.96 10*3/uL 0.83-4.51 [facility] Work Phone: Basophil percentageon 2021 Basophils/100 WBC (Bld) 0.6 % 0-1 [facility] Work Phone: Chloride [Moles/Vol] 94 mmol/L 98-107 [facility] Work Phone: Eosinophils/100 WBC (Bld) 3.9 % 0-5 [facility] Work Phone: Glucose [Mass/Vol] 131 mg/dL 74-106 [facility] Work Phone: [phone] Comment on above: Fasting Glucose resu lt greater than or equal to 126 mg/dL suggests DIABETES MELLITUS per A.D.A. criteria. Neutrophils (Bld) [#/Vol] 3.3 10*3/uL 2.0-7.7 [facility] Work Phone: Neutrophils/100 WBC (Bld) 63.5 % 47-70 [facility] Work Phone: Potassium [Moles/Vol] 4.0 mmol/L 3.5-5.1 [facility] Work Phone: [phone] Sodium [Moles/Vol] 136 mmol/L 136-145 [facility] Work Phone: WBC (Bld) [#/Vol] 5.1 10*3/uL 4.4-11.0 [facility] Work Phone: Blood erythrocytes count (nu mber/volume)on 08-09-2021 RBC (Bld) [#/Vol] 3.77 10*6/uL 4.2-5.4 [facility] Work Phone: Blood hemoglobin measurement (mass/volume)on 08-09-2021 Hemoglobin (Bld) [Mass/Vol] 11.8 g/dL 12.0-15.0 [facility] Work Phone: Blood lymphocytes/100 leukoc yteson 08-09-2021 Lymphocytes/100 WBC (Bld) 18.7 % 19-41 [facility] Work Phone: Blood monocytes/100 leukocyt eson 08-09-2021 Monocytes/100 WBC (Bld) 12.7 % 0-10 [facility] Work Phone: Blood platelet mean volumeon 08-09-2021 Platelet mean volume (Bld) [Entitic vol] 8.8 fL 6.2-12.0 [facility] Work Phone: Determination of erythrocyte mean corpuscular volume (MCV)on 08-09-2021 MCV (RBC) [Entitic vol] 97.9 fL 81-99 [facility] Work Phone: Glucose Glucometer (BldC) [M ass/Vol]on 08-09-2021 Glucose [Mass/Vol] 120 mg/dL 74-106 [facility] Work Phone: Comment on above: MANAGEMENT OF PATIEN T CARE PER NURSING PROTOCOL Hematocrit Auto (Bld) [Volum e fraction]on 08-09-2021 Hematocrit (Bld) [Volume fraction] 36.9 % 37-47 [facility] Work Phone: Laboratory - Chemistry and C hemistry - challengeon 08-09-2021 CO2 [Moles/Vol] 40.0 mmol/L 21.0-32.0 [facility] Work Phone: Urea nitrogen/Creatinine [Mass ratio] 38.3 mg/mg 10-20 [facility] Work Phone: Laboratory - Hematology and Cell countson 08-09-2021 Erythrocyte distribution width (RBC) [Entitic vol] 45.7 fL 35.1-43.9 [facility] Work Phone: Erythrocyte distribution width (RBC) [Ratio] 12.8 % 11.6-14.6 [facility] Work Phone: Immature granulocytes/100 WBC (Bld) 0.600 % 0.0-0.9 [facility] Work Phone: Comment on above: IG% - Immature Granu locytes (promyelocytes, myelocytes and metamyelocytes) > 1% indicates that a LEFT SHIFT is Present. MCH (RBC) [Entitic mass] 31.3 pg 27.0-32.0 [facility] Work Phone: Nucleated RBC/100 WBC (Bld) [Ratio] 0 % 0-5 [facility] Work Phone: MCHC Auto (RBC) [Mass/Vol]on 08-09-2021 MCHC (RBC) [Mass/Vol] 32.0 g/dL 32-36 [facility] Work Phone: No Panel Informationon 08-09 Estimated Creatinine Clearance Calc 43.27 ml/min [facility] Work Phone: Estimated GFR (MDRD) Amer 109 mL/min >60 [facility] Work Phone: Comment on above: GFR Calc Estimated GFR (MDRD) Non-Af Amer 90 mL/min >60 [facility] Work Phone: Comment on above: Non- GFR Calc Platelets bldon 08-09-2021 Platelets (Bld) [#/Vol] 264 10*3/uL 150-450 [facility] Work Phone: Serum or plasma calcium norman urement (mass/volume)on 08-09-2021 Calcium [Mass/Vol] 8.9 mg/dL 8.5-10.1 [facility] Work Phone: Serum or plasma creatinine m easurement (mass/volume)on 08-09-2021 Creatinine [Mass/Vol] 0.68 mg/dL 0.55-1.02 [facility] Work Phone: Comment on above: The validity of the calculated GFR & GFRAA in patients over 70 years has not been determined. Clinical correlation is essential. Serum or plasma urea nitroge n measurement (mass/volume)on 08-09-2021 Urea nitrogen [Mass/Vol] 26 mg/dL 7-18 [facility] Work Phone: Thin prep Papanicolaou smear with manual screeningon 08-09-2021 Thin prep Papanicolaou smear with manual screening 2 5-15 [facility] Work Phone: Basophil percentageon 2021 Basophil percentage 0 SEEN /hpf [facility] Work Phone: Bilirubin Test strip Ql (U)o n 07-28-2021 Bilirubin Ql (U) Negative Negative [facility] Work Phone: Culture, urineon 07-28-2021 Bacteria identified Cx Nom (U) Culture exhibits no growth. [facility] Work Phone: Ketones Test strip Ql (U)on 07-28-2021 Ketones Ql (U) Negative Negative [facility] Work Phone: Mucus LM Ql (Urine sed)on Mucus Ql (Urine sed) 0 SEEN /hpf [facility] Work Phone: Nitrite Test strip Ql (U)on 07-28-2021 Nitrite Ql (U) Negative Negative [facility] Work Phone: Protein Test strip Ql (U)on 07-28-2021 Protein Ql (U) Negative Negative [facility] Work Phone: Squamous epithelial cells de tection in urine sediment by light microscopyon 07-28-2021 Epithelial cells.squamous LM Ql (Urine sed) 0 SEEN /hpf [facility] Work Phone: Urine blood detectionon 07-10 RBC Ql (U) Negative Negative [facility] Work Phone: RBC Ql (U) 0 SEEN /hpf [facility] Work Phone: Urine clarityon 07-28-2021 Clarity (U) Clear Clear [facility] Work Phone: Urine color determinationon 07-28-2021 Color (U) Yellow Yellow [facility] Work Phone: Urine glucose detectionon Glucose Ql (U) Normal mg/dl Normal [facility] Work Phone: Urine leukocyte esterase det ection by dipstickon 07-28-2021 Leukocyte esterase Test strip Ql (U) Negative Negative [facility] Work Phone: Urine pHon 07-28-2021 pH (U) 8.0 [pH] [facility] Work Phone: Urine sediment bacteria coun t by microscopy (number/high power field)on 07-28-2021 Bacteria LM.HPF (Urine sed) [#/Area] 0 /[HPF] None Seen [facility] Work Phone: Urine specific gravity measu rementon 07-28-2021 Specific gravity (U) [Rel density] 1.015 [facility] Work Phone: Urobilinogen Auto test strip Ql (U)on 07-28-2021 Urobilinogen Ql (U) Normal mg/dl Normal [facility] Work Phone: Blood manual differential co mment interpretation (narrative result)on 07-26-2021 Manual differential comment Lamin (Bld) [Interp] SCANNED [facility] Work Phone: Comment on above: LYMPHOPENIA NOTED No Panel Informationon 07-26 Atypical Lymphocytes RARE % [facility] Work Phone: Absolute lymphocyte counton 07-25-2021 Lymphocytes Auto (Unsp spec) [#/Vol] 0.88 10*3/uL 0.83-4.51 [facility] Work Phone: Basophil percentageon 2021 Basophil percentage 3.2 mg/dL 2.5-4.9 [facility] Work Phone: Basophils/100 WBC (Bld) 0.4 % 0-1 [facility] Work Phone: Bilirubin [Mass/Vol] 0.50 mg/dL 0.20-1.00 [facility] Work Phone: Comment on above: For patients on eltr ombopag therapy, use of Dimension [place] TBIL is not recommended. Chloride [Moles/Vol] 98 mmol/L 98-107 [facility] Work Phone: Eosinophils/100 WBC (Bld) 0.7 % 0-5 [facility] Work Phone: Glucose [Mass/Vol] 126 mg/dL 74-106 [facility] Work Phone: Comment on above: Fasting Glucose resu lt greater than or equal to 126 mg/dL suggests DIABETES MELLITUS per A.D.A. criteria. Neutrophils (Bld) [#/Vol] 6.1 10*3/uL 2.0-7.7 [facility] Work Phone: Neutrophils/100 WBC (Bld) 73.3 % 47-70 [facility] Work Phone: Potassium [Moles/Vol] 3.8 mmol/L 3.5-5.1 [facility] Work Phone: Protein [Mass/Vol] 7.0 g/dL 6.4-8.2 [facility] Work Phone: Sodium [Moles/Vol] 138 mmol/L 136-145 [facility] Work Phone: WBC (Bld) [#/Vol] 8.4 10*3/uL 4.4-11.0 [facility] Work Phone: [phone] Blood erythrocytes count (nu mber/volume)on 07-25-2021 RBC (Bld) [#/Vol] 3.72 10*6/uL 4.2-5.4 [facility] Work Phone: Blood hemoglobin measurement (mass/volume)on 07-25-2021 Hemoglobin (Bld) [Mass/Vol] 11.6 g/dL 12.0-15.0 [facility] Work Phone: Blood lymphocytes/100 leukoc yteson 07-25-2021 Lymphocytes/100 WBC (Bld) 10.5 % 19-41 [facility] Work Phone: Blood monocytes/100 leukocyt eson 07-25-2021 Monocytes/100 WBC (Bld) 14.6 % 0-10 [facility] Work Phone: Blood platelet mean volumeon 07-25-2021 Platelet mean volume (Bld) [Entitic vol] 9.9 fL 6.2-12.0 [facility] Work Phone: [phone] Determination of erythrocyte mean corpuscular volume (MCV)on 07-25-2021 MCV (RBC) [Entitic vol] 100.3 fL 81-99 [facility] Work Phone: Glucose Glucometer (BldC) [M ass/Vol]on 07-25-2021 Glucose [Mass/Vol] 121 mg/dL 70-110 [facility] Work Phone: Comment on above: MANAGEMENT OF PATIEN T CARE PER NURSING PROTOCOL Hematocrit Auto (Bld) [Volum e fraction]on 07-25-2021 Hematocrit (Bld) [Volume fraction] 37.3 % 37-47 [facility] Work Phone: Laboratory - Chemistry and C hemistry - challengeon 07-25-2021 ALP [Catalytic activity/Vol] 84 U/L 45-117 [facility] Work Phone: ALT [Catalytic activity/Vol] 22 U/L 13-56 [facility] Work Phone: CO2 [Moles/Vol] 39.0 mmol/L 21.0-32.0 [facility] Work Phone: Globulin (S) [Mass/Vol] 3.5 g/dL 2.2-4.2 [facility] Work Phone: Magnesium [Mass/Vol] 2.2 mg/dL 1.6-2.6 [facility] Work Phone: Urea nitrogen/Creatinine [Mass ratio] 31.3 mg/mg 10-20 [facility] Work Phone: Laboratory - Hematology and Cell countson 07-25-2021 Erythrocyte distribution width (RBC) [Entitic vol] 47.0 fL 35.1-43.9 [facility] Work Phone: Erythrocyte distribution width (RBC) [Ratio] 12.8 % 11.6-14.6 [facility] Work Phone: Immature granulocytes/100 WBC (Bld) 0.500 % 0.0-0.9 [facility] Work Phone: Comment on above: IG% - Immature Granu locytes (promyelocytes, myelocytes and metamyelocytes) > 1% indicates that a LEFT SHIFT is Present. MCH (RBC) [Entitic mass] 31.2 pg 27.0-32.0 [facility] Work Phone: Nucleated RBC/100 WBC (Bld) [Ratio] 0 % 0-5 [facility] Work Phone: MCHC Auto (RBC) [Mass/Vol]on 07-25-2021 MCHC (RBC) [Mass/Vol] 31.1 g/dL 32-36 [facility] Work Phone: No Panel Informationon 07-25 SARS-CoV-2 Antigen (Rapid) [facility] Work Phone: Estimated Creatinine Clearance Calc 41.45 ml/min [facility] Work Phone: Estimated GFR (MDRD) Amer 117 mL/min >60 [facility] Work Phone: Comment on above: GFR Calc Estimated GFR (MDRD) Non-Af Amer 97 mL/min >60 [facility] Work Phone: Comment on above: Non- GFR Calc Platelets bldon 07-25-2021 Platelets (Bld) [#/Vol] 193 10*3/uL 150-450 [facility] Work Phone: Serum or plasma albumin norman urement (mass/volume)on 07-25-2021 Albumin [Mass/Vol] 3.5 g/dL 3.2-5.0 [facility] Work Phone: Serum or plasma albumin/glob ulin mass ratioon 07-25-2021 Albumin/Globulin [Mass ratio] 1.0 {ratio} 0.9-2.4 [facility] Work Phone: Serum or plasma calcium norman urement (mass/volume)on 07-25-2021 Calcium [Mass/Vol] 8.7 mg/dL 8.5-10.1 [facility] Work Phone: Serum or plasma creatinine m easurement (mass/volume)on 07-25-2021 Creatinine [Mass/Vol] 0.64 mg/dL 0.55-1.02 [facility] Work Phone: Comment on above: The validity of the calculated GFR & GFRAA in patients over 70 years has not been determined. Clinical correlation is essential. Serum or plasma urea nitroge n measurement (mass/volume)on 07-25-2021 Urea nitrogen [Mass/Vol] 20 mg/dL 7-18 [facility] Work Phone: Thin prep Papanicolaou smear with manual screeningon 07-25-2021 Thin prep Papanicolaou smear with manual screening 22 U/L 15-37 [facility] Work Phone: Thin prep Papanicolaou smear with manual screening 1 5-15 [facility] Work Phone: Basophil percentageon 2021 Basophil percentage 0 SEEN /hpf [facility] Work Phone: Bilirubin Test strip Ql (U)o n 07-24-2021 Bilirubin Ql (U) Negative Negative [facility] Work Phone: Culture, urineon 07-24-2021 Bacteria identified Cx Nom (U) Culture exhibits no growth. [facility] Work Phone: Hyaline casts LM.LPF (Urine sed) [#/Area]on 07-24-2021 Hyaline casts (Urine sed) [#/Area] 0 /[LPF] [facility] Work Phone: Ketones Test strip Ql (U)on 07-24-2021 Ketones Ql (U) Negative Negative [facility] Work Phone: Laboratory - Chemistry and C hemistry - challengeon 07-24-2021 Natriuretic peptide B (Bld) [Mass/Vol] 82.2 pg/mL 0-100 [facility] Work Phone: Mucus LM Ql (Urine sed)on Mucus Ql (Urine sed) 0 SEEN /hpf [facility] Work Phone: Nitrite Test strip Ql (U)on 07-24-2021 Nitrite Ql (U) Negative Negative [facility] Work Phone: No Panel Informationon 07-24 Troponin I High Sensitivity 17 pg/mL 3.0-54.0 [facility] Work Phone: Comment on above: Please Note: New Jennifer t Units and Gender Specific Reference Ranges. For more information see Policy Stat Procedure [place] High Sensitivity Troponin (TNIH) and attachments. Protein Test strip Ql (U)on 07-24-2021 Protein Ql (U) 30 mg/dl Negative [facility] Work Phone: Squamous epithelial cells de tection in urine sediment by light microscopyon 07-24-2021 Epithelial cells.squamous LM Ql (Urine sed) 0-5 SEEN /hpf [facility] Work Phone: Urine blood detectionon 07-09 RBC Ql (U) 10 /ul Negative [facility] Work Phone: RBC Ql (U) 0-5 SEEN /hpf [facility] Work Phone: Urine clarityon 07-24-2021 Clarity (U) Clear Clear [facility] Work Phone: Urine color determinationon 07-24-2021 Color (U) Yellow Yellow [facility] Work Phone: Urine glucose detectionon Glucose Ql (U) Normal mg/dl Normal [facility] Work Phone: Urine leukocyte esterase det ection by dipstickon 07-24-2021 Leukocyte esterase Test strip Ql (U) Negative Negative [facility] Work Phone: Urine pHon 07-24-2021 pH (U) 6.5 [pH] [facility] Work Phone: Urine sediment bacteria coun t by microscopy (number/high power field)on 07-24-2021 Bacteria LM.HPF (Urine sed) [#/Area] 1 /[HPF] None Seen [facility] Work Phone: Urine specific gravity measu rementon 07-24-2021 Specific gravity (U) [Rel density] 1.010 [facility] Work Phone: Urobilinogen Auto test strip Ql (U)on 07-24-2021 Urobilinogen Ql (U) Normal mg/dl Normal [facility] Work Phone: Comprehensive Panelon 2018 ALP [Catalytic activity/Vol] 74 U/L Normal 45-117 [facility] Comment on above: Performed By: #### P 14 #### [facility] [address] [place], [place] [address] Protein [Mass/Vol] 7.1 g/dL Normal 6.4-8.2 [facility] Comment on above: Performed By: #### P 14 #### [facility] [address] [place], [place] [address] Bilirubin [Mass/Vol] 0.8 mg/dL Normal 0.2-1.0 [facility] Comment on above: Performed By: #### P 14 #### [facility] [address] [place], [place] [address] ALT [Catalytic activity/Vol] 50 U/L Normal 12-78 [facility] Comment on above: Performed By: #### P 14 #### [facility] [address] [place], [place] [address] AST [Catalytic activity/Vol] 18 U/L Normal 15-37 [facility] Comment on above: Performed By: #### P 14 #### [facility] [address] [place], [place] [address] Creatinine [Mass/Vol] 0.65 mg/dL Normal 0.51-0.95 [facility] Comment on above: Performed By: #### P 14 #### [facility] [address] [place], [place] [address] Albumin [Mass/Vol] 3.7 g/dL Normal 3.4-5.0 [facility] Comment on above: Performed By: #### P 14 #### [facility] [address] [place], [place] [address] Anion gap [Moles/Vol] 8 mmol/L Normal 8-16 [facility] Comment on above: Performed By: #### P 14 #### [facility] [address] [place], [place] [address] CO2 [Moles/Vol] 33 mmol/L High 21-32 [facility] Comment on above: Performed By: #### P 14 #### [facility] [address] [place], [place] [address] Glucose [Mass/Vol] 187 mg/dL High 70-99 [facility] Comment on above: Performed By: #### P 14 #### [facility] [address] [place], [place] [address] Urea nitrogen [Mass/Vol] 27 mg/dL High 7-18 [facility] Comment on above: Performed By: #### P 14 #### [facility] [address] [place], [place] [address] Calcium [Mass/Vol] 8.9 mg/dL Normal 8.5-10.1 [facility] Comment on above: Performed By: #### P 14 #### [facility] [address] [place], [place] [address] Chloride [Moles/Vol] 95 mmol/L Low 98-107 [facility] Comment on above: Performed By: #### P 14 #### [facility] [address] [place], [place] [address] Potassium [Moles/Vol] 4.5 mmol/L Normal 3.5-5.1 [facility] Comment on above: Performed By: #### P 14 #### [facility] [address] [place], [place] [address] Sodium [Moles/Vol] 131 mmol/L Low 136-145 [facility] Comment on above: Performed By: #### P 14 #### [facility] [address] [place], [place] [address] Glucose Meteron 12-30-2018 Glucose [Mass/Vol] 149 mg/dL High 70-99 [facility] Comment on above: Result Comment: SANDRA CAVANAUGH Performed By: #### G LMET #### [facility] [address] [place], [place] [address] Hemogram/Diffon 12-30-2018 Abs Immature Grans 0.12 thou/cmm High 0.00-0.05 [facility] Comment on above: Performed By: #### P 14 #### [facility] [address] [place] [address] Abs Neut (ANC) 9.65 thou/cmm High 1.56-6.13 [facility] Comment on above: Performed By: #### P 14 #### [facility] [address] [place] [address] Abs. Baso 0.02 thou/cmm Normal 0.01-0.08 [facility] Comment on above: Performed By: #### P 14 #### [facility] [address] [place] [address] Abs. Hanson 0.88 thou/cmm High 0.27-0.70 [facility] Comment on above: Performed By: #### P 14 #### [place] [address] Basophils/100 WBC (Bld) 0.2 % Normal [facility] Comment on above: Performed By: #### P 14 #### [place] [address] Eosinophils (Bld) [#/Vol] 0.00 thou/cmm Normal 0.00-0.31 [facility] Comment on above: Performed By: #### P 14 #### [place] [address] Eosinophils/100 WBC (Bld) 0.0 % Normal [facility] Comment on above: Performed By: #### P 14 #### [facility] [address] [place] [address] Erythrocyte distribution width (RBC) [Ratio] 13.2 % Normal 11.7-14.4 [facility] Comment on above: Performed By: #### P 14 #### [facility] [address] [place] [address] Hematocrit (Bld) [Volume fraction] 45.2 % High 34.1-44.9 [facility] Comment on above: Performed By: #### P 14 #### [facility] [address] [place] [address] Hemoglobin (Bld) [Mass/Vol] 14.5 g/dL Normal 11.2-15.7 [facility] Comment on above: Performed By: #### P 14 #### [facility] [address] [place] [address] Immature Grans 1.00 % Normal [facility] Comment on above: Performed By: #### P 14 #### [facility] [address] [place] [address] Lymphocytes (Bld) [#/Vol] 0.86 thou/cmm Low 1.18-3.74 [facility] Comment on above: Performed By: #### P 14 #### [facility] [address] [place] [address] Lymphocytes/100 WBC (Bld) 7.5 % Normal [facility] Comment on above: Performed By: #### P 14 #### [facility] [address] [place] [address] MCH (RBC) [Entitic mass] 30.5 pg Normal 25.6-32.2 [facility] Comment on above: Performed By: #### P 14 #### [facility] [address] [place] [address] MCHC (RBC) [Mass/Vol] 32.1 % Normal 31.6-34.8 [facility] Comment on above: Performed By: #### P 14 #### [facility] [address] [place] [address] MCV (RBC) [Entitic vol] 95.0 fL High 79.4-94.8 [facility] Comment on above: Performed By: #### P 14 #### [facility] [address] [place] [address] Monocytes/100 WBC (Bld) 7.6 % Normal [facility] Comment on above: Performed By: #### P 14 #### [facility] [address] [place] [address] Platelet mean volume (Bld) [Entitic vol] 9.6 fL Normal 9.4-12.3 [facility] Comment on above: Performed By: #### P 14 #### [facility] [address] [place] [address] Platelets (Bld) [#/Vol] 340 thou/cmm Normal 182-369 [facility] Comment on above: Performed By: #### P 14 #### [facility] [address] [place], [place] [address] RBC (Bld) [#/Vol] 4.76 mil/cmm Normal 3.93-5.22 [facility] Comment on above: Performed By: #### P 14 #### [facility] [address] [place] [address] RDW SD 46.4 fl High 36.4-46.3 [facility] Comment on above: Performed By: #### P 14 #### [facility] [address] [place] [address] Seg Neutrophil 83.7 % Normal [facility] Comment on above: Performed By: #### P 14 #### [facility] [address] [place] [address] WBC (Bld) [#/Vol] 11.53 thou/cmm High 3.98-10.04 [facility] Comment on above: Performed By: #### P 14 #### [facility] [address] [place] [address] MDRD GFRon 12-30-2018 GFR/1.73 sq M predicted among non-blacks MDRD (S/P/Bld) [Vol rate/Area] mL/min/{1.73_m2} Normal >60mL/min/1. 73m2 [facility] Comment on above: Result Comment: If t he patient is , multiply the result by 1.210. Performed By: #### G FR #### [facility] [address] [place] [address] Comprehensive Panelon 2018 ALP [Catalytic activity/Vol] 72 U/L Normal 45-117 [facility] Comment on above: Performed By: #### P 14 #### [place] [address] Bilirubin [Mass/Vol] 0.6 mg/dL Normal 0.2-1.0 [facility] Comment on above: Performed By: #### P 14 #### [facility] [address] [place], [place] [address] Creatinine [Mass/Vol] 0.66 mg/dL Normal 0.51-0.95 [facility] Comment on above: Performed By: #### P 14 #### [facility] [address] [place], [place] [address] Protein [Mass/Vol] 7.1 g/dL Normal 6.4-8.2 [facility] Comment on above: Performed By: #### P 14 #### [facility] [address] [place], [place] [address] ALT [Catalytic activity/Vol] 55 U/L Normal 12-78 [facility] Comment on above: Performed By: #### P 14 #### [facility] [address] [place], [place] [address] AST [Catalytic activity/Vol] 15 U/L Normal 15-37 [facility] Comment on above: Performed By: #### P 14 #### [facility] [address] [place], [place] [address] Albumin [Mass/Vol] 3.8 g/dL Normal 3.4-5.0 [facility] Comment on above: Performed By: #### P 14 #### [facility] [address] [place], [place] [address] Anion gap [Moles/Vol] 11 mmol/L Normal 8-16 [facility] Comment on above: Performed By: #### P 14 #### [facility] [address] [place], [place] [address] CO2 [Moles/Vol] 29 mmol/L Normal 21-32 [facility] Comment on above: Performed By: #### P 14 #### [facility] [address] [place], [place] [address] Glucose [Mass/Vol] 203 mg/dL High 70-99 [facility] Comment on above: Performed By: #### P 14 #### [facility] [address] [place], [place] [address] Urea nitrogen [Mass/Vol] 32 mg/dL High 7-18 [facility] Comment on above: Performed By: #### P 14 #### [facility] [address] [place] [address] Calcium [Mass/Vol] 9.0 mg/dL Normal 8.5-10.1 [facility] Comment on above: Performed By: #### P 14 #### [facility] [address] [place] [address] Chloride [Moles/Vol] 96 mmol/L Low 98-107 [facility] Comment on above: Performed By: #### P 14 #### [facility] [address] [place] [address] Potassium [Moles/Vol] 4.1 mmol/L Normal 3.5-5.1 [facility] Comment on above: Performed By: #### P 14 #### [facility] [address] [place] [address] Sodium [Moles/Vol] 132 mmol/L Low 136-145 [facility] Comment on above: Performed By: #### P 14 #### [facility] [address] [place] [address] Hemogram/Diffon 12-29-2018 Abs Immature Grans 0.13 thou/cmm High 0.00-0.05 [facility] Comment on above: Performed By: #### P 14 #### [facility] [address] [place] [address] Abs Neut (ANC) 9.82 thou/cmm High 1.56-6.13 [facility] Comment on above: Performed By: #### P 14 #### [facility] [address] [place] [address] Abs. Baso 0.01 thou/cmm Normal 0.01-0.08 [facility] Comment on above: Performed By: #### P 14 #### [facility] [address] [place] [address] Abs. Hanson 0.69 thou/cmm Normal 0.27-0.70 [facility] Comment on above: Performed By: #### P 14 #### [facility] [address] [place], [place] [address] Basophils/100 WBC (Bld) 0.1 % Normal [facility] Comment on above: Performed By: #### P 14 #### [facility] [address] [place], [place] [address] Eosinophils (Bld) [#/Vol] 0.00 thou/cmm Normal 0.00-0.31 [facility] Comment on above: Performed By: #### P 14 #### [facility] [address] [place], [place] [address] Eosinophils/100 WBC (Bld) 0.0 % Normal [facility] Comment on above: Performed By: #### P 14 #### [facility] [address] [place], [place] [address] Erythrocyte distribution width (RBC) [Ratio] 13.3 % Normal 11.7-14.4 [facility] Comment on above: Performed By: #### P 14 #### [facility] [address] [place], [place] [address] Hematocrit (Bld) [Volume fraction] 43.2 % Normal 34.1-44.9 [facility] Comment on above: Performed By: #### P 14 #### [facility] [address] [place], [place] [address] Hemoglobin (Bld) [Mass/Vol] 14.2 g/dL Normal 11.2-15.7 [facility] Comment on above: Performed By: #### P 14 #### [facility] [address] [place] [address] Immature Grans 1.10 % Normal [facility] Comment on above: Performed By: #### P 14 #### [facility] [address] [place], [place] [address] Lymphocytes (Bld) [#/Vol] 0.88 thou/cmm Low 1.18-3.74 [facility] Comment on above: Performed By: #### P 14 #### [facility] [address] [place], [place] [address] Lymphocytes/100 WBC (Bld) 7.6 % Normal [facility] Comment on above: Performed By: #### P 14 #### [facility] [address] [place], [place] [address] MCH (RBC) [Entitic mass] 30.9 pg Normal 25.6-32.2 [facility] Comment on above: Performed By: #### P 14 #### [facility] [address] [place], [place] [address] MCHC (RBC) [Mass/Vol] 32.9 % Normal 31.6-34.8 [facility] Comment on above: Performed By: #### P 14 #### [facility] [address] [place], [place] [address] MCV (RBC) [Entitic vol] 93.9 fL Normal 79.4-94.8 [facility] Comment on above: Performed By: #### P 14 #### [facility] [address] [place] [address] Monocytes/100 WBC (Bld) 6.0 % Normal [facility] Comment on above: Performed By: #### P 14 #### [facility] [address] [place], [place] [address] Platelet mean volume (Bld) [Entitic vol] 10.1 fL Normal 9.4-12.3 [facility] Comment on above: Performed By: #### P 14 #### [facility] [address] [place], [place] [address] Platelets (Bld) [#/Vol] 330 thou/cmm Normal 182-369 [facility] Comment on above: Performed By: #### P 14 #### [facility] [address] [place], [place] [address] RBC (Bld) [#/Vol] 4.60 mil/cmm Normal 3.93-5.22 [facility] Comment on above: Performed By: #### P 14 #### [facility] [address] [place], [place] [address] RDW SD 45.6 fl Normal 36.4-46.3 [facility] Comment on above: Performed By: #### P 14 #### [facility] [address] [place], [place] [address] Seg Neutrophil 85.2 % Normal [facility] Comment on above: Performed By: #### P 14 #### [facility] [address] [place] [address] WBC (Bld) [#/Vol] 11.52 thou/cmm High 3.98-10.04 [facility] Comment on above: Performed By: #### P 14 #### [facility] [address] [place] [address] Troponin Ion 12-29-2018 Troponin I.cardiac [Mass/Vol] ng/mL Normal 0.015-0.045 [facility] Comment on above: Performed By: #### P 14 #### [facility] [address] [place] [address] Comprehensive Panelon 2018 ALP [Catalytic activity/Vol] 75 U/L Normal 45-117 [facility] Comment on above: Performed By: #### P 14 #### [facility] [address] [place] [address] Bilirubin [Mass/Vol] 0.6 mg/dL Normal 0.2-1.0 [facility] Comment on above: Performed By: #### P 14 #### [facility] [address] [place] [address] Protein [Mass/Vol] 7.1 g/dL Normal 6.4-8.2 [facility] Comment on above: Performed By: #### P 14 #### [facility] [address] [place] [address] ALT [Catalytic activity/Vol] 57 U/L Normal 12-78 [facility] Comment on above: Performed By: #### P 14 #### [facility] [address] [place] [address] AST [Catalytic activity/Vol] 22 U/L Normal 15-37 [facility] Comment on above: Performed By: #### P 14 #### [facility] [address] [place] [address] Creatinine [Mass/Vol] 0.53 mg/dL Normal 0.51-0.95 [facility] Comment on above: Performed By: #### P 14 #### [facility] [address] [place], [place] [address] Albumin [Mass/Vol] 3.7 g/dL Normal 3.4-5.0 [facility] Comment on above: Performed By: #### P 14 #### [facility] [address] [place], [place] [address] Anion gap [Moles/Vol] 9 mmol/L Normal 8-16 [facility] Comment on above: Performed By: #### P 14 #### [facility] [address] [place], [place] [address] CO2 [Moles/Vol] 30 mmol/L Normal 21-32 [facility] Comment on above: Performed By: #### P 14 #### [facility] [address] [place], [place] [address] Urea nitrogen [Mass/Vol] 20 mg/dL High 7-18 [facility] Comment on above: Performed By: #### P 14 #### [facility] [address] [place], [place] [address] Calcium [Mass/Vol] 8.7 mg/dL Normal 8.5-10.1 [facility] Comment on above: Performed By: #### P 14 #### [facility] [address] [place], [place] [address] Glucose [Mass/Vol] 179 mg/dL High 70-99 [facility] Comment on above: Performed By: #### P 14 #### [facility] [address] [place], [place] [address] Chloride [Moles/Vol] 102 mmol/L Normal 98-107 [facility] Comment on above: Performed By: #### P 14 #### [facility] [address] [place], [place] [address] Potassium [Moles/Vol] 4.1 mmol/L Normal 3.5-5.1 [facility] Comment on above: Performed By: #### P 14 #### [facility] [address] [place], [place] [address] Sodium [Moles/Vol] 137 mmol/L Normal 136-145 [facility] Comment on above: Performed By: #### P 14 #### [facility] [address] [place], [place] [address] Ferritinon 12-28-2018 Ferritin [Mass/Vol] 446.20 ng/mL High 8.00-252.00 [facility] Comment on above: Performed By: #### P 14 #### [facility] [address] [place] [address] Hemogram/Diffon 12-28-2018 Abs Immature Grans 0.08 thou/cmm High 0.00-0.05 [facility] Comment on above: Performed By: #### P 14 #### [facility] [address] [place] [address] Abs Neut (ANC) 9.48 thou/cmm High 1.56-6.13 [facility] Comment on above: Performed By: #### P 14 #### [facility] [address] [place] [address] Abs. Baso 0.02 thou/cmm Normal 0.01-0.08 [facility] Comment on above: Performed By: #### P 14 #### [facility] [address] [place] [address] Abs. Hanson 0.80 thou/cmm High 0.27-0.70 [facility] Comment on above: Performed By: #### P 14 #### [facility] [address] [place] [address] Basophils/100 WBC (Bld) 0.2 % Normal [facility] Comment on above: Performed By: #### P 14 #### [facility] [address] [place] [address] Eosinophils (Bld) [#/Vol] 0.00 thou/cmm Normal 0.00-0.31 [facility] Comment on above: Performed By: #### P 14 #### [facility] [address] [place] [address] Eosinophils/100 WBC (Bld) 0.0 % Normal [facility] Comment on above: Performed By: #### P 14 #### [facility] [address] [place] [address] Erythrocyte distribution width (RBC) [Ratio] 13.2 % Normal 11.7-14.4 [facility] Comment on above: Performed By: #### P 14 #### [facility] [address] [place], [place] [address] Hematocrit (Bld) [Volume fraction] 43.3 % Normal 34.1-44.9 [facility] Comment on above: Performed By: #### P 14 #### [facility] [address] [place], [place] [address] Hemoglobin (Bld) [Mass/Vol] 14.2 g/dL Normal 11.2-15.7 [facility] Comment on above: Performed By: #### P 14 #### [facility] [address] [place] [address] Immature Grans 0.70 % Normal [facility] Comment on above: Performed By: #### P 14 #### [facility] [address] [place], [place] [address] Lymphocytes (Bld) [#/Vol] 0.85 thou/cmm Low 1.18-3.74 [facility] Comment on above: Performed By: #### P 14 #### [facility] [address] [place], [place] [address] Lymphocytes/100 WBC (Bld) 7.6 % Normal [facility] Comment on above: Performed By: #### P 14 #### [facility] [address] [place], [place] [address] MCH (RBC) [Entitic mass] 30.9 pg Normal 25.6-32.2 [facility] Comment on above: Performed By: #### P 14 #### [facility] [address] [place], [place] [address] MCHC (RBC) [Mass/Vol] 32.8 % Normal 31.6-34.8 [facility] Comment on above: Performed By: #### P 14 #### [facility] [address] [place], [place] [address] MCV (RBC) [Entitic vol] 94.1 fL Normal 79.4-94.8 [facility] Comment on above: Performed By: #### P 14 #### [facility] [address] [place], [place] [address] Monocytes/100 WBC (Bld) 7.1 % Normal [facility] Comment on above: Performed By: #### P 14 #### [facility] [address] [place] [address] Platelet mean volume (Bld) [Entitic vol] 9.6 fL Normal 9.4-12.3 [facility] Comment on above: Performed By: #### P 14 #### [facility] [address] [place] [address] Platelets (Bld) [#/Vol] 291 thou/cmm Normal 182-369 [facility] Comment on above: Performed By: #### P 14 #### [facility] [address] [place] [address] RBC (Bld) [#/Vol] 4.60 mil/cmm Normal 3.93-5.22 [facility] Comment on above: Performed By: #### P 14 #### [facility] [address] [place] [address] RDW SD 45.1 fl Normal 36.4-46.3 [facility] Comment on above: Performed By: #### P 14 #### [facility] [address] [place] [address] Seg Neutrophil 84.4 % Normal [facility] Comment on above: Performed By: #### P 14 #### [facility] [address] [place] [address] WBC (Bld) [#/Vol] 11.23 thou/cmm High 3.98-10.04 [facility] Comment on above: Performed By: #### P 14 #### [facility] [address] [place] [address] Comprehensive Panelon 2018 Creatinine [Mass/Vol] 0.57 mg/dL Normal 0.51-0.95 [facility] Comment on above: Performed By: #### P 14 #### [facility] [address] [place] [address] ALP [Catalytic activity/Vol] 72 U/L Normal 45-117 [facility] Comment on above: Performed By: #### P 14 #### [facility] [address] [place], [place] [address] Protein [Mass/Vol] 6.6 g/dL Normal 6.4-8.2 [facility] Comment on above: Performed By: #### P 14 #### [facility] [address] [place], [place] [address] Bilirubin [Mass/Vol] 0.7 mg/dL Normal 0.2-1.0 [facility] Comment on above: Performed By: #### P 14 #### [facility] [address] [place], [place] [address] ALT [Catalytic activity/Vol] 55 U/L Normal 12-78 [facility] Comment on above: Performed By: #### P 14 #### [facility] [address] [place], [place] [address] AST [Catalytic activity/Vol] 21 U/L Normal 15-37 [facility] Comment on above: Performed By: #### P 14 #### [facility] [address] [place], [place] [address] Albumin [Mass/Vol] 3.6 g/dL Normal 3.4-5.0 [facility] Comment on above: Performed By: #### P 14 #### [facility] [address] [place], [place] [address] Anion gap [Moles/Vol] 10 mmol/L Normal 8-16 [facility] Comment on above: Performed By: #### P 14 #### [facility] [address] [place], [place] [address] CO2 [Moles/Vol] 32 mmol/L Normal 21-32 [facility] Comment on above: Performed By: #### P 14 #### [facility] [address] [place], [place] [address] Glucose [Mass/Vol] 122 mg/dL High 70-99 [facility] Comment on above: Performed By: #### P 14 #### [facility] [address] [place], [place] [address] Urea nitrogen [Mass/Vol] 19 mg/dL High 7-18 [facility] Comment on above: Performed By: #### P 14 #### [facility] [address] [place] [address] Calcium [Mass/Vol] 8.8 mg/dL Normal 8.5-10.1 [facility] Comment on above: Performed By: #### P 14 #### [facility] [address] [place] [address] Chloride [Moles/Vol] 99 mmol/L Normal 98-107 [facility] Comment on above: Performed By: #### P 14 #### [facility] [address] [place] [address] Potassium [Moles/Vol] 3.4 mmol/L Low 3.5-5.1 [facility] Comment on above: Performed By: #### P 14 #### [facility] [address] [place] [address] Sodium [Moles/Vol] 138 mmol/L Normal 136-145 [facility] Comment on above: Performed By: #### P 14 #### [facility] [address] [place] [address] Hemogram/Diffon 12-27-2018 Abs Immature Grans 0.05 thou/cmm Normal 0.00-0.05 [facility] Comment on above: Performed By: #### P 14 #### [facility] [address] [place] [address] Abs Neut (ANC) 5.43 thou/cmm Normal 1.56-6.13 [facility] Comment on above: Performed By: #### P 14 #### [facility] [address] [place] [address] Abs. Baso 0.03 thou/cmm Normal 0.01-0.08 [facility] Comment on above: Performed By: #### P 14 #### [facility] [address] [place] [address] Abs. Hanson 1.04 thou/cmm High 0.27-0.70 [facility] Comment on above: Performed By: #### P 14 #### [facility] [address] [place] [address] Basophils/100 WBC (Bld) 0.3 % Normal [facility] Comment on above: Performed By: #### P 14 #### [facility] [address] [place], [place] [address] Eosinophils (Bld) [#/Vol] 0.08 thou/cmm Normal 0.00-0.31 [facility] Comment on above: Performed By: #### P 14 #### [facility] [address] [place], [place] [address] Eosinophils/100 WBC (Bld) 0.9 % Normal [facility] Comment on above: Performed By: #### P 14 #### [facility] [address] [place] [address] Erythrocyte distribution width (RBC) [Ratio] 13.2 % Normal 11.7-14.4 [facility] Comment on above: Performed By: #### P 14 #### [facility] [address] [place] [address] Hematocrit (Bld) [Volume fraction] 39.7 % Normal 34.1-44.9 [facility] Comment on above: Performed By: #### P 14 #### [facility] [address] [place] [address] Hemoglobin (Bld) [Mass/Vol] 12.7 g/dL Normal 11.2-15.7 [facility] Comment on above: Performed By: #### P 14 #### [facility] [address] [place] [address] Immature Grans 0.60 % Normal [facility] Comment on above: Performed By: #### P 14 #### [facility] [address] [place], [place] [address] Lymphocytes (Bld) [#/Vol] 2.06 thou/cmm Normal 1.18-3.74 [facility] Comment on above: Performed By: #### P 14 #### [facility] [address] [place], [place] [address] Lymphocytes/100 WBC (Bld) 23.7 % Normal [facility] Comment on above: Performed By: #### P 14 #### [facility] [address] [place] [address] MCH (RBC) [Entitic mass] 30.2 pg Normal 25.6-32.2 [facility] Comment on above: Performed By: #### P 14 #### [facility] [address] [place] [address] MCHC (RBC) [Mass/Vol] 32.0 % Normal 31.6-34.8 [facility] Comment on above: Performed By: #### P 14 #### [facility] [address] [place] [address] MCV (RBC) [Entitic vol] 94.5 fL Normal 79.4-94.8 [facility] Comment on above: Performed By: #### P 14 #### [facility] [address] [place] [address] Monocytes/100 WBC (Bld) 12.0 % Normal [facility] Comment on above: Performed By: #### P 14 #### [facility] [address] [place] [address] Platelet mean volume (Bld) [Entitic vol] 9.8 fL Normal 9.4-12.3 [facility] Comment on above: Performed By: #### P 14 #### [facility] [address] [place] [address] Platelets (Bld) [#/Vol] 240 thou/cmm Normal 182-369 [facility] Comment on above: Performed By: #### P 14 #### [facility] [address] [place] [address] RBC (Bld) [#/Vol] 4.20 mil/cmm Normal 3.93-5.22 [facility] Comment on above: Performed By: #### P 14 #### [facility] [address] [place] [address] RDW SD 45.4 fl Normal 36.4-46.3 [facility] Comment on above: Performed By: #### P 14 #### [facility] [address] [place] [address] Seg Neutrophil 62.5 % Normal [facility] Comment on above: Performed By: #### P 14 #### [facility] [address] [place] [address] WBC (Bld) [#/Vol] 8.68 thou/cmm Normal 3.98-10.04 [facility] Comment on above: Performed By: #### P 14 #### [facility] [address] [place] [address] Comprehensive Panelon 2018 ALP [Catalytic activity/Vol] 74 U/L Normal 45-117 [facility] Comment on above: Performed By: #### C BCD1 #### [facility] [address] [place] [address] Bilirubin [Mass/Vol] 0.6 mg/dL Normal 0.2-1.0 [facility] Comment on above: Performed By: #### C BCD1 #### [facility] [address] [place] [address] Protein [Mass/Vol] 6.0 g/dL Low 6.4-8.2 [facility] Comment on above: Performed By: #### C BCD1 #### [facility] [address] [place] [address] Creatinine [Mass/Vol] 0.61 mg/dL Normal 0.51-0.95 [facility] Comment on above: Performed By: #### C BCD1 #### [facility] [address] [place] [address] ALT [Catalytic activity/Vol] 50 U/L Normal 12-78 [facility] Comment on above: Performed By: #### C BCD1 #### [facility] [address] [place] [address] AST [Catalytic activity/Vol] 25 U/L Normal 15-37 [facility] Comment on above: Performed By: #### C BCD1 #### [facility] [address] [place] [address] Albumin [Mass/Vol] 3.3 g/dL Low 3.4-5.0 [facility] Comment on above: Performed By: #### C BCD1 #### [facility] [address] [place] [address] Anion gap [Moles/Vol] 6 mmol/L Low 8-16 [facility] Comment on above: Performed By: #### C BCD1 #### [facility] [address] [place], [place] [address] Calcium [Mass/Vol] 8.3 mg/dL Low 8.5-10.1 [facility] Comment on above: Performed By: #### C BCD1 #### [facility] [address] [place], [place] [address] CO2 [Moles/Vol] 34 mmol/L High 21-32 [facility] Comment on above: Performed By: #### C BCD1 #### [facility] [address] [place], [place] [address] Glucose [Mass/Vol] 119 mg/dL High 70-99 [facility] Comment on above: Performed By: #### C BCD1 #### [facility] [address] [place] [address] Urea nitrogen [Mass/Vol] 22 mg/dL High 7-18 [facility] Comment on above: Performed By: #### C BCD1 #### [facility] [address] [place], [place] [address] Chloride [Moles/Vol] 100 mmol/L Normal 98-107 [facility] Comment on above: Performed By: #### C BCD1 #### [facility] [address] [place], [place] [address] Potassium [Moles/Vol] 3.4 mmol/L Low 3.5-5.1 [facility] Comment on above: Performed By: #### C BCD1 #### [facility] [address] [place], [place] [address] Sodium [Moles/Vol] 137 mmol/L Normal 136-145 [facility] Comment on above: Performed By: #### C BCD1 #### [facility] [address] [place], [place] [address] Hemogram/Diffon 12-26-2018 Abs Immature Grans 0.03 thou/cmm Normal 0.00-0.05 [facility] Comment on above: Performed By: #### C BCD1 #### [facility] [address] [place], [place] [address] Abs Neut (ANC) 3.33 thou/cmm Normal 1.56-6.13 [facility] Comment on above: Performed By: #### C BCD1 #### [facility] [address] [place], [place] [address] Abs. Baso 0.02 thou/cmm Normal 0.01-0.08 [facility] Comment on above: Performed By: #### C BCD1 #### [facility] [address] [place], [place] [address] Abs. Hanson 0.98 thou/cmm High 0.27-0.70 [facility] Comment on above: Performed By: #### C BCD1 #### [facility] [address] [place], [place] [address] Basophils/100 WBC (Bld) 0.3 % Normal [facility] Comment on above: Performed By: #### C BCD1 #### [facility] [address] [place], [place] [address] Eosinophils (Bld) [#/Vol] 0.03 thou/cmm Normal 0.00-0.31 [facility] Comment on above: Performed By: #### C BCD1 #### [facility] [address] [place], [place] [address] Eosinophils/100 WBC (Bld) 0.5 % Normal [facility] Comment on above: Performed By: #### C BCD1 #### [facility] [address] [place], [place] [address] Immature Grans 0.50 % Normal [facility] Comment on above: Performed By: #### C BCD1 #### [facility] [address] [place], [place] [address] Lymphocytes (Bld) [#/Vol] 1.58 thou/cmm Normal 1.18-3.74 [facility] Comment on above: Performed By: #### C BCD1 #### [facility] [address] [place], [place] [address] Lymphocytes/100 WBC (Bld) 26.5 % Normal [facility] Comment on above: Performed By: #### C BCD1 #### [facility] [address] [place], [place] [address] Monocytes/100 WBC (Bld) 16.4 % Normal [facility] Comment on above: Performed By: #### C BCD1 #### [facility] [address] [place] [address] Seg Neutrophil 55.8 % Normal [facility] Comment on above: Performed By: #### C BCD1 #### [facility] [address] [place] [address] Erythrocyte distribution width (RBC) [Ratio] 13.3 % Normal 11.7-14.4 [facility] Comment on above: Performed By: #### C BCD1 #### [facility] [address] [place] [address] Hematocrit (Bld) [Volume fraction] 38.5 % Normal 34.1-44.9 [facility] Comment on above: Performed By: #### C BCD1 #### [facility] [address] [place] [address] Hemoglobin (Bld) [Mass/Vol] 12.3 g/dL Normal 11.2-15.7 [facility] Comment on above: Performed By: #### C BCD1 #### [facility] [address] [place] [address] MCH (RBC) [Entitic mass] 31.0 pg Normal 25.6-32.2 [facility] Comment on above: Performed By: #### C BCD1 #### [facility] [address] [place] [address] MCHC (RBC) [Mass/Vol] 31.9 % Normal 31.6-34.8 [facility] Comment on above: Performed By: #### C BCD1 #### [facility] [address] [place] [address] MCV (RBC) [Entitic vol] 97.0 fL High 79.4-94.8 [facility] Comment on above: Performed By: #### C BCD1 #### [facility] [address] [place] [address] Platelet mean volume (Bld) [Entitic vol] 9.6 fL Normal 9.4-12.3 [facility] Comment on above: Performed By: #### C BCD1 #### [facility] [address] [place], [place] [address] Platelets (Bld) [#/Vol] 216 thou/cmm Normal 182-369 [facility] Comment on above: Performed By: #### C BCD1 #### [facility] [address] [place], [place] [address] RBC (Bld) [#/Vol] 3.97 mil/cmm Normal 3.93-5.22 [facility] Comment on above: Performed By: #### C BCD1 #### [facility] [address] [place], [place] [address] RDW SD 48.0 fl High 36.4-46.3 [facility] Comment on above: Performed By: #### C BCD1 #### [facility] [address] [place], [place] [address] WBC (Bld) [#/Vol] 5.97 thou/cmm Normal 3.98-10.04 [facility] Comment on above: Performed By: #### C BCD1 #### [facility] [address] [place] [address] Comprehensive Panelon 2018 ALP [Catalytic activity/Vol] 68 U/L Normal 45-117 [facility] Comment on above: Performed By: #### C BCD1 #### [facility] [address] [place], [place] [address] Protein [Mass/Vol] 6.4 g/dL Normal 6.4-8.2 [facility] Comment on above: Performed By: #### C BCD1 #### [facility] [address] [place], [place] [address] ALT [Catalytic activity/Vol] 47 U/L Normal 12-78 [facility] Comment on above: Performed By: #### C BCD1 #### [facility] [address] [place], [place] [address] Bilirubin [Mass/Vol] 0.5 mg/dL Normal 0.2-1.0 [facility] Comment on above: Performed By: #### C BCD1 #### [facility] [address] [place], [place] [address] Creatinine [Mass/Vol] 0.51 mg/dL Normal 0.51-0.95 [facility] Comment on above: Performed By: #### C BCD1 #### [facility] [address] [place], [place] [address] AST [Catalytic activity/Vol] 36 U/L Normal 15-37 [facility] Comment on above: Performed By: #### C BCD1 #### [facility] [address] [place], [place] [address] Albumin [Mass/Vol] 3.3 g/dL Low 3.4-5.0 [facility] Comment on above: Performed By: #### C BCD1 #### [facility] [address] [place], [place] [address] Anion gap [Moles/Vol] 8 mmol/L Normal 8-16 [facility] Comment on above: Performed By: #### C BCD1 #### [address] [address] CO2 [Moles/Vol] 30 mmol/L Normal 21-32 [facility] Comment on above: Performed By: #### C BCD1 #### [facility] [address] [place], [place] [address] Glucose [Mass/Vol] 153 mg/dL High 70-99 [facility] Comment on above: Performed By: #### C BCD1 #### [facility] [address] [place], [place] [address] Urea nitrogen [Mass/Vol] 24 mg/dL High 7-18 [facility] Comment on above: Performed By: #### C BCD1 #### [facility] [address] [place], [place] [address] Calcium [Mass/Vol] 8.5 mg/dL Normal 8.5-10.1 [facility] Comment on above: Performed By: #### C BCD1 #### [facility] [address] [place], [place] [address] Chloride [Moles/Vol] 102 mmol/L Normal 98-107 [facility] Comment on above: Performed By: #### C BCD1 #### [facility] [address] [place] [address] Potassium [Moles/Vol] 4.1 mmol/L Normal 3.5-5.1 [facility] Comment on above: Performed By: #### C BCD1 #### [facility] [address] [place] [address] Sodium [Moles/Vol] 136 mmol/L Normal 136-145 [facility] Comment on above: Performed By: #### C BCD1 #### [facility] [address] [place] [address] Hemogram/Diffon 12-25-2018 Abs Immature Grans 0.04 thou/cmm Normal 0.00-0.05 [facility] Comment on above: Performed By: #### C BCD1 #### [facility] [address] [place] [address] Abs Neut (ANC) 7.70 thou/cmm High 1.56-6.13 [facility] Comment on above: Performed By: #### C BCD1 #### [facility] [address] [place] [address] Abs. Baso 0.02 thou/cmm Normal 0.01-0.08 [facility] Comment on above: Performed By: #### C BCD1 #### [facility] [address] [place] [address] Abs. Hanson 1.35 thou/cmm High 0.27-0.70 [facility] Comment on above: Performed By: #### C BCD1 #### [facility] [address] [place] [address] Basophils/100 WBC (Bld) 0.2 % Normal [facility] Comment on above: Performed By: #### C BCD1 #### [facility] [address] [place] [address] Eosinophils (Bld) [#/Vol] 0.01 thou/cmm Normal 0.00-0.31 [facility] Comment on above: Performed By: #### C BCD1 #### [facility] [address] [place] [address] Eosinophils/100 WBC (Bld) 0.1 % Normal [facility] Comment on above: Performed By: #### C BCD1 #### [facility] [address] [place] [address] Erythrocyte distribution width (RBC) [Ratio] 13.5 % Normal 11.7-14.4 [facility] Comment on above: Performed By: #### C BCD1 #### [facility] [address] [place] [address] Hematocrit (Bld) [Volume fraction] 37.9 % Normal 34.1-44.9 [facility] Comment on above: Performed By: #### C BCD1 #### [place] [address] Hemoglobin (Bld) [Mass/Vol] 12.2 g/dL Normal 11.2-15.7 [facility] Comment on above: Performed By: #### C BCD1 #### [place] [address] Immature Grans 0.40 % Normal [facility] Comment on above: Performed By: #### C BCD1 #### [place] [address] Lymphocytes (Bld) [#/Vol] 0.81 thou/cmm Low 1.18-3.74 [facility] Comment on above: Performed By: #### C BCD1 #### [place] [address] Lymphocytes/100 WBC (Bld) 8.2 % Normal [facility] Comment on above: Performed By: #### C BCD1 #### [facility] [address] [place] [address] MCH (RBC) [Entitic mass] 31.3 pg Normal 25.6-32.2 [facility] Comment on above: Performed By: #### C BCD1 #### [facility] [address] [place] [address] MCHC (RBC) [Mass/Vol] 32.2 % Normal 31.6-34.8 [facility] Comment on above: Performed By: #### C BCD1 #### [address] [place], [place] [address] MCV (RBC) [Entitic vol] 97.2 fL High 79.4-94.8 [facility] Comment on above: Performed By: #### C BCD1 #### [facility] [address] [place] [address] Monocytes/100 WBC (Bld) 13.6 % Normal [facility] Comment on above: Performed By: #### C BCD1 #### [facility] [address] [place] [address] Platelet mean volume (Bld) [Entitic vol] 9.9 fL Normal 9.4-12.3 [facility] Comment on above: Performed By: #### C BCD1 #### [facility] [address] [place] [address] Platelets (Bld) [#/Vol] 239 thou/cmm Normal 182-369 [facility] Comment on above: Performed By: #### C BCD1 #### [facility] [address] [place] [address] RBC (Bld) [#/Vol] 3.90 mil/cmm Low 3.93-5.22 [facility] Comment on above: Performed By: #### C BCD1 #### [facility] [address] [place] [address] RDW SD 48.2 fl High 36.4-46.3 [facility] Comment on above: Performed By: #### C BCD1 #### [facility] [address] [place] [address] Seg Neutrophil 77.5 % Normal [facility] Comment on above: Performed By: #### C BCD1 #### [facility] [address] [place] [address] WBC (Bld) [#/Vol] 9.93 thou/cmm Normal 3.98-10.04 [facility] Comment on above: Performed By: #### C BCD1 #### [facility] [address] [place] [address] Comprehensive Panelon 2018 ALP [Catalytic activity/Vol] 71 U/L Normal 45-117 [facility] Comment on above: Performed By: #### C BCD1 #### [facility] [address] [place], [place] [address] Bilirubin [Mass/Vol] 0.4 mg/dL Normal 0.2-1.0 [facility] Comment on above: Performed By: #### C BCD1 #### [facility] [address] [place], [place] [address] Protein [Mass/Vol] 6.1 g/dL Low 6.4-8.2 [facility] Comment on above: Performed By: #### C BCD1 #### [facility] [address] [place], [place] [address] ALT [Catalytic activity/Vol] 40 U/L Normal 12-78 [facility] Comment on above: Performed By: #### C BCD1 #### [facility] [address] [place], [place] [address] AST [Catalytic activity/Vol] 28 U/L Normal 15-37 [facility] Comment on above: Performed By: #### C BCD1 #### [facility] [address] [place], [place] [address] Creatinine [Mass/Vol] 0.57 mg/dL Normal 0.51-0.95 [facility] Comment on above: Performed By: #### C BCD1 #### [facility] [address] [place], [place] [address] Glucose [Mass/Vol] 152 mg/dL High 70-99 [facility] Comment on above: Performed By: #### C BCD1 #### [facility] [address] [place], [place] [address] Albumin [Mass/Vol] 3.3 g/dL Low 3.4-5.0 [facility] Comment on above: Performed By: #### C BCD1 #### [facility] [address] [place], [place] [address] Anion gap [Moles/Vol] 8 mmol/L Normal 8-16 [facility] Comment on above: Performed By: #### C BCD1 #### [facility] [address] [place], [place] [address] Calcium [Mass/Vol] 8.0 mg/dL Low 8.5-10.1 [facility] Comment on above: Performed By: #### C BCD1 #### [facility] [address] [place] [address] CO2 [Moles/Vol] 30 mmol/L Normal 21-32 [facility] Comment on above: Performed By: #### C BCD1 #### [facility] [address] [place] [address] Urea nitrogen [Mass/Vol] 26 mg/dL High 7-18 [facility] Comment on above: Performed By: #### C BCD1 #### [facility] [address] [place] [address] Chloride [Moles/Vol] 104 mmol/L Normal 98-107 [facility] Comment on above: Performed By: #### C BCD1 #### [facility] [address] [place] [address] Potassium [Moles/Vol] 4.2 mmol/L Normal 3.5-5.1 [facility] Comment on above: Performed By: #### C BCD1 #### [facility] [address] [place] [address] Sodium [Moles/Vol] 138 mmol/L Normal 136-145 [facility] Comment on above: Performed By: #### C BCD1 #### [facility] [address] [place] [address] Hemogram/Diffon 12-24-2018 Abs Immature Grans 0.04 thou/cmm Normal 0.00-0.05 [facility] Comment on above: Performed By: #### C BCD1 #### [facility] [address] [place] [address] Abs Neut (ANC) 8.30 thou/cmm High 1.56-6.13 [facility] Comment on above: Performed By: #### C BCD1 #### [facility] [address] [place] [address] Abs. Baso 0.02 thou/cmm Normal 0.01-0.08 [facility] Comment on above: Performed By: #### C BCD1 #### [facility] [address] [place] [address] Abs. Hanson 1.01 thou/cmm High 0.27-0.70 [facility] Comment on above: Performed By: #### C BCD1 #### [facility] [address] [place] [address] Basophils/100 WBC (Bld) 0.2 % Normal [facility] Comment on above: Performed By: #### C BCD1 #### [facility] [address] [place] [address] Eosinophils (Bld) [#/Vol] 0.00 thou/cmm Normal 0.00-0.31 [facility] Comment on above: Performed By: #### C BCD1 #### [facility] [address] [place] [address] Eosinophils/100 WBC (Bld) 0.0 % Normal [facility] Comment on above: Performed By: #### C BCD1 #### [facility] [address] [place] [address] Erythrocyte distribution width (RBC) [Ratio] 13.3 % Normal 11.7-14.4 [facility] Comment on above: Performed By: #### C BCD1 #### [facility] [address] [place] [address] Hematocrit (Bld) [Volume fraction] 35.3 % Normal 34.1-44.9 [facility] Comment on above: Performed By: #### C BCD1 #### [facility] [address] [place] [address] Hemoglobin (Bld) [Mass/Vol] 11.3 g/dL Normal 11.2-15.7 [facility] Comment on above: Performed By: #### C BCD1 #### [facility] [address] [place] [address] Immature Grans 0.40 % Normal [facility] Comment on above: Performed By: #### C BCD1 #### [facility] [address] [place] [address] Lymphocytes (Bld) [#/Vol] 0.62 thou/cmm Low 1.18-3.74 [facility] Comment on above: Performed By: #### C BCD1 #### [facility] [address] [place], [place] [address] Lymphocytes/100 WBC (Bld) 6.2 % Normal [facility] Comment on above: Performed By: #### C BCD1 #### [facility] [address] [place], [place] [address] MCH (RBC) [Entitic mass] 31.0 pg Normal 25.6-32.2 [facility] Comment on above: Performed By: #### C BCD1 #### [facility] [address] [place], [place] [address] MCHC (RBC) [Mass/Vol] 32.0 % Normal 31.6-34.8 [facility] Comment on above: Performed By: #### C BCD1 #### [facility] [address] [place], [place] [address] MCV (RBC) [Entitic vol] 96.7 fL High 79.4-94.8 [facility] Comment on above: Performed By: #### C BCD1 #### [facility] [address] [place], [place] [address] Monocytes/100 WBC (Bld) 10.1 % Normal [facility] Comment on above: Performed By: #### C BCD1 #### [facility] [address] [place], [place] [address] Platelet mean volume (Bld) [Entitic vol] 9.8 fL Normal 9.4-12.3 [facility] Comment on above: Performed By: #### C BCD1 #### [facility] [address] [place], [place] [address] Platelets (Bld) [#/Vol] 231 thou/cmm Normal 182-369 [facility] Comment on above: Performed By: #### C BCD1 #### [facility] [address] [place], [place] [address] RBC (Bld) [#/Vol] 3.65 mil/cmm Low 3.93-5.22 [facility] Comment on above: Performed By: #### C BCD1 #### [facility] [address] [place] [address] RDW SD 47.7 fl High 36.4-46.3 [facility] Comment on above: Performed By: #### C BCD1 #### [facility] [address] [place] [address] Seg Neutrophil 83.1 % Normal [facility] Comment on above: Performed By: #### C BCD1 #### [facility] [address] [place] [address] WBC (Bld) [#/Vol] 9.99 thou/cmm Normal 3.98-10.04 [facility] Comment on above: Performed By: #### C BCD1 #### [facility] [address] [place] [address] Blood Gas Arterialon 019 Base Excess 1.0 mmol/L Normal -3.0-3.0 [facility] Comment on above: Performed By: #### C BCD1 #### [facility] [address] [place] [address] HCO3 (Bld) [Moles/Vol] 27.0 mmol/L Normal 21.0-28.0 [facility] Comment on above: Performed By: #### C BCGregorio #### [facility] [address] [place] [address] O2% Sat Arterial 93.9 % Low 96.0-100.0 [facility] Comment on above: Performed By: #### C BCD1 #### [facility] [address] [place] [address] PCO2 Arterial 50.1 mm Hg High 35.0-45.0 [facility] Comment on above: Performed By: #### C BCD1 #### [facility] [address] [place] [address] pH Arterial 7.347 Low 7.350-7.450 [facility] Comment on above: Performed By: #### C BCD1 #### [place] [address] PO2 Arterial 71.9 mm Hg Low 83.0-108.0 [facility] Comment on above: Performed By: #### C BCD1 #### [facility] [address] [place] [address] FIO2 44 % Normal [facility] Comment on above: Performed By: #### C BCD1 #### [facility] [address] [place] [address] FIO2 50 % Normal [facility] Comment on above: Performed By: #### A BG #### [facility] [address] [place] [address] Base Excess 6.4 mmol/L High -3.0-3.0 [facility] Comment on above: Performed By: #### A BG #### [facility] [address] [place] [address] HCO3 (Bld) [Moles/Vol] 33.3 mmol/L High 21.0-28.0 [facility] Comment on above: Performed By: #### A BG #### [facility] [address] [place] [address] O2% Sat Arterial 94.5 % Low 96.0-100.0 [facility] Comment on above: Performed By: #### A BG #### [facility] [address] [place] [address] PCO2 Arterial 61.0 mm Hg High 35.0-45.0 [facility] Comment on above: Performed By: #### A BG #### [facility] [address] [place] [address] pH Arterial 7.356 Normal 7.350-7.450 [facility] Comment on above: Performed By: #### A BG #### [facility] [address] [place] [address] PO2 Arterial 77.4 mm Hg Low 83.0-108.0 [facility] Comment on above: Performed By: #### A BG #### [facility] [address] [address] Comprehensive Panelon 2018 ALP [Catalytic activity/Vol] 80 U/L Normal 45-117 [facility] Comment on above: Performed By: #### P 14 #### [facility] [address] [place], [place] [address] Bilirubin [Mass/Vol] 0.5 mg/dL Normal 0.2-1.0 [facility] Comment on above: Performed By: #### P 14 #### [facility] [address] [place], [place] [address] Creatinine [Mass/Vol] 0.52 mg/dL Normal 0.51-0.95 [facility] Comment on above: Performed By: #### P 14 #### [facility] [address] [place], [place] [address] Protein [Mass/Vol] 7.0 g/dL Normal 6.4-8.2 [facility] Comment on above: Performed By: #### P 14 #### [facility] [address] [place], [place] [address] ALT [Catalytic activity/Vol] 36 U/L Normal 12-78 [facility] Comment on above: Performed By: #### P 14 #### [facility] [address] [place], [place] [address] AST [Catalytic activity/Vol] 21 U/L Normal 15-37 [facility] Comment on above: Performed By: #### P 14 #### [facility] [address] [place], [place] [address] Albumin [Mass/Vol] 3.7 g/dL Normal 3.4-5.0 [facility] Comment on above: Performed By: #### P 14 #### [facility] [address] [place], [place] [address] Anion gap [Moles/Vol] 12 mmol/L Normal 8-16 [facility] Comment on above: Performed By: #### P 14 #### [facility] [address] [place], [place] [address] CO2 [Moles/Vol] 32 mmol/L Normal 21-32 [facility] Comment on above: Performed By: #### P 14 #### [facility] [address] [place], [place] [address] Calcium [Mass/Vol] 8.6 mg/dL Normal 8.5-10.1 [facility] Comment on above: Performed By: #### P 14 #### [facility] [address] [address] Glucose [Mass/Vol] 128 mg/dL High 70-99 [facility] Comment on above: Performed By: #### P 14 #### [facility] [address] [place] [address] Urea nitrogen [Mass/Vol] 24 mg/dL High 7-18 [facility] Comment on above: Performed By: #### P 14 #### [facility] [address] [address] Chloride [Moles/Vol] 100 mmol/L Normal 98-107 [facility] Comment on above: Performed By: #### P 14 #### [facility] [address] [address] Potassium [Moles/Vol] 3.5 mmol/L Normal 3.5-5.1 [facility] Comment on above: Performed By: #### P 14 #### [facility] [address] [address] Sodium [Moles/Vol] 140 mmol/L Normal 136-145 [facility] Comment on above: Performed By: #### P 14 #### [facility] [address] [place] [address] Hemogram/Diffon 12-23-2018 Abs Immature Grans 0.01 thou/cmm Normal 0.00-0.05 [facility] Comment on above: Performed By: #### C BCD1 #### [place] [address] Abs Neut (ANC) 4.93 thou/cmm Normal 1.56-6.13 [facility] Comment on above: Performed By: #### C BCD1 #### [facility] [address] [address] Abs. Baso 0.07 thou/cmm Normal 0.01-0.08 [facility] Comment on above: Performed By: #### C BCD1 #### [place] [address] Abs. Hanson 0.98 thou/cmm High 0.27-0.70 [facility] Comment on above: Performed By: #### C BCD1 #### [facility] [address] [place], [place] [address] Basophils/100 WBC (Bld) 0.9 % Normal [facility] Comment on above: Performed By: #### C BCD1 #### [facility] [address] [place], [place] [address] Eosinophils (Bld) [#/Vol] 0.13 thou/cmm Normal 0.00-0.31 [facility] Comment on above: Performed By: #### C BCD1 #### [facility] [address] [place], [place] [address] Eosinophils/100 WBC (Bld) 1.7 % Normal [facility] Comment on above: Performed By: #### C BCD1 #### [facility] [address] [place], [place] [address] Erythrocyte distribution width (RBC) [Ratio] 13.1 % Normal 11.7-14.4 [facility] Comment on above: Performed By: #### C BCD1 #### [facility] [address] [place], [place] [address] Hematocrit (Bld) [Volume fraction] 40.0 % Normal 34.1-44.9 [facility] Comment on above: Performed By: #### C BCD1 #### [facility] [address] [place], [place] [address] Hemoglobin (Bld) [Mass/Vol] 13.1 g/dL Normal 11.2-15.7 [facility] Comment on above: Performed By: #### C BCD1 #### [facility] [address] [place], [place] [address] Immature Grans 0.10 % Normal [facility] Comment on above: Performed By: #### C BCD1 #### [facility] [address] [place], [place] [address] Lymphocytes (Bld) [#/Vol] 1.53 thou/cmm Normal 1.18-3.74 [facility] Comment on above: Performed By: #### C BCD1 #### [facility] [address] [place], [place] [address] Lymphocytes/100 WBC (Bld) 20.0 % Normal [facility] Comment on above: Performed By: #### C BCD1 #### [facility] [address] [address] MCH (RBC) [Entitic mass] 31.3 pg Normal 25.6-32.2 [facility] Comment on above: Performed By: #### C BCD1 #### [facility] [address] [address] MCHC (RBC) [Mass/Vol] 32.8 % Normal 31.6-34.8 [facility] Comment on above: Performed By: #### C BCD1 #### [facility] [address] [address] MCV (RBC) [Entitic vol] 95.5 fL High 79.4-94.8 [facility] Comment on above: Performed By: #### C BCD1 #### [place] [address] Monocytes/100 WBC (Bld) 12.8 % Normal [facility] Comment on above: Performed By: #### C BCD1 #### [facility] [address] [address] Platelet mean volume (Bld) [Entitic vol] 9.5 fL Normal 9.4-12.3 [facility] Comment on above: Performed By: #### C BCD1 #### [place] [address] Platelets (Bld) [#/Vol] 255 thou/cmm Normal 182-369 [facility] Comment on above: Performed By: #### C BCD1 #### [facility] [address] [address] RBC (Bld) [#/Vol] 4.19 mil/cmm Normal 3.93-5.22 [facility] Comment on above: Performed By: #### C BCD1 #### [facility] [address] [address] RDW SD 46.3 fl Normal 36.4-46.3 [facility] Comment on above: Performed By: #### C BCD1 #### [facility] [address] [place] [address] Seg Neutrophil 64.5 % Normal [facility] Comment on above: Performed By: #### C BCD1 #### [facility] [address] [address] WBC (Bld) [#/Vol] 7.65 thou/cmm Normal 3.98-10.04 [facility] Comment on above: Performed By: #### C BCD1 #### [facility] [address] [address] Hgb A1con 12-23-2018 HbA1c (Bld) [Mass fraction] 163 mg/dl Normal [facility] Comment on above: Performed By: #### H A1C #### [facility] [address] [address] HbA1c (Bld) [Mass fraction] 7.3 % High 4.2-6.3 [facility] Comment on above: Result Comment: Meth od is National Glycohemoglobin Standardization Program (NGSP) compliant. Performed By: #### H A1C #### [facility] [address] [address] Lactic Acidon 12-23-2018 Lactate [Moles/Vol] 1.5 mmol/L Normal 0.4-2.0 [facility] Comment on above: Performed By: #### L AC #### [place] [address] MRSA Screenon 12-23-2018 MRSA DNA MONCHO+probe Ql (Unsp spec) Test performed at [facility] No MRSA detected. Normal [facility] Comment on above: Performed By: #### C BCD1 #### [facility] [address] [address] Magnesium Bloodon 12-23-2018 Magnesium [Mass/Vol] 2.2 mg/dL Normal 1.6-2.6 [facility] Comment on above: Performed By: #### C BCD1 #### [facility] [address] [address] Magnesium [Mass/Vol] 1.8 mg/dL Normal 1.6-2.6 [facility] Comment on above: Performed By: #### M AG #### [facility] [address] [place], [place] [address] N-terminal Pro-BNPon 019 Natriuretic peptide B (Bld) [Mass/Vol] 22 pg/mL Normal [facility] Comment on above: Result Comment: Note new reference range: Normal Reference Range: Patients <75 yrs old <125pg/ml Patients >=75 yrs old <450 pg/ml Performed By: #### P BNP #### [facility] [address] [place], [place] [address] Phosphorus Bloodon 9 Phosphate [Mass/Vol] 3.0 mg/dL Normal 2.5-4.9 [facility] Comment on above: Performed By: #### P HOS #### [facility] [address] [place], [place] [address] Potassium Bloodon 12-23-2018 Potassium [Moles/Vol] 4.2 mmol/L Normal 3.5-5.1 [facility] Comment on above: Performed By: #### C BCD1 #### [facility] [address] [place], [place] [address] Bacteria identified Anaer cx Nom (Unsp spec) Anaerobic microbial culture No anaerobic bacteria isolated. [facility] Work Phone: Bacteria identified Cx Nom ( Wound) Wound Culture Staphylococcus epidermidis [facility] Work Phone: Gram stain for investigation of transfusion reaction Microscopic observation Gram stain Nom (Unsp spec) [facility] Work Phone: Vital Signs Date Time Vital Sign Value Performing Clinician Facility 09-07-2024 14:28-0400 Body mass index (BMI) [Ratio] 29.7 kg/m2 Jalyn Smith MD Work Phone: [facility] 09-07-2024 14:28-040 Body weight 78.47 kg Jalyn Smith MD Work Phone: [facility] 09-07-2024 14:28-040 Diastolic blood pressure 62 mm[Hg] Jalyn Smith MD Work Phone: [facility] 09-07-2024 14:28-0400 Heart rate 71 /min Jalyn Smith MD Work Phone: [facility] 09-07-2024 14:28-0400 SaO2% (BldA) [Mass fraction] 93 % Jalyn Smith MD Work Phone: [facility] 09-07-2024 14:28-0400 Systolic blood pressure 110 mm[Hg] Jalyn Smith MD Work Phone: [facility] 09-04-2024 11:56-0400 Body temperature 97.5 [degF] Dr. Jalyn Smith MD Work Phone: [facility] 09-04-2024 11:56-0400 Diastolic blood pressure 87 mm[Hg] Dr. Jalyn Smith MD Work Phone: [facility] 09-04-2024 11:56-0400 Heart rate 84 /min Dr. Jalyn Smith MD Work Phone: [facility] 09-04-2024 11:56-0400 Respiratory rate 16 /min Dr. Jalyn Smith MD Work Phone: [facility] 09-04-2024 11:56-0400 SaO2% (BldA) [Mass fraction] 99 % Dr. Jalyn Smith MD Work Phone: [facility] 09-04-2024 11:56-0400 Systolic blood pressure 118 mm[Hg] Dr. Jalyn Smith MD Work Phone: [facility] 09-04-2024 07:04-0400 Body height 157.[address] Jalyn Smith MD Work Phone: [facility] 09-04-2024 07:04-0400 Body mass index (BMI) [Ratio] 32.3 kg/m2 Dr. Jalyn Smith MD Work Phone: [facility] 09-04-2024 07:04-0400 Body weight 80.[address] Jalyn Smith MD Work Phone: [facility] 09-04-2024 07:04-0400 Inhaled oxygen flow rate 3 L/min Dr. Jalyn Smith MD Work Phone: [facility] 03-09-2024 15:10-0400 Body mass index (BMI) [Ratio] 30.55 kg/m2 Jalyn Smith MD Work Phone: [facility] 03-09-2024 15:10-0400 Body weight 80.74 kg Jalyn Smith MD Work Phone: [facility] 03-09-2024 15:10-0400 Diastolic blood pressure 70 mm[Hg] Jalyn Smith MD Work Phone: [facility] 03-09-2024 15:10-0400 Heart rate 77 /min Jalyn Smith MD Work Phone: [facility] 03-09-2024 15:10-0400 SaO2% (BldA) [Mass fraction] 99 % Jalyn Smith MD Work Phone: [facility] 03-09-2024 15:10-0400 Systolic blood pressure 118 mm[Hg] Jalyn Smith MD Work Phone: [facility] 01-06-2024 11:06-0400 Diastolic blood pressure 76 mm[Hg] Juhi Constance PA-C Work Phone: [facility] 01-06-2024 11:06-0400 Heart rate 62 /min Juhi Constance PA-C Work Phone: [facility] 01-06-2024 11:06-0400 Respiratory rate 17 /min Juhi Constance PA-C Work Phone: [facility] 01-06-2024 11:06-0400 SaO2% (BldA) [Mass fraction] 95 % Juhi Constance PA-C Work Phone: [facility] 01-06-2024 11:06-0400 Systolic blood pressure 132 mm[Hg] Juhi Constance PA-C Work Phone: [facility] 11-05-2023 10:47-0400 Diastolic blood pressure 72 mm[Hg] Yaniv Todd MD Work Phone: [facility] 11-05-2023 10:47-0400 Heart rate 64 /min Yaniv Todd MD Work Phone: [facility] 11-05-2023 10:47-0400 SaO2% (BldA) [Mass fraction] 96 % Yaniv Todd MD Work Phone: [facility] Comment on above: 2L 11-05-2023 10:47-0400 Systolic blood pressure 115 mm[Hg] Yaniv Todd MD Work Phone: [facility] 09-30-2023 11:52-0400 Body mass index (BMI) [Ratio] 32.1 kg/m2 Pulm Wstr Work Phone: [facility] 09-30-2023 11:52-0400 Body weight 84.82 kg Pulm Wstr Work Phone: [facility] 09-30-2023 11:52-0400 Heart rate 94 /min Pulm Wstr Work Phone: [facility] 09-30-2023 11:52-0400 SaO2% (BldA) [Mass fraction] 94 % Pulm Wstr Work Phone: [facility] Comment on above: 2L HI 09-30-2023 11:27-0400 Body mass index (BMI) [Ratio] 32.1 kg/m2 Juhi Constance PA-C Work Phone: [facility] 09-30-2023 11:27-0400 Body weight 84.82 kg Juhi Constance PA-C Work Phone: [facility] 09-30-2023 11:27-0400 Diastolic blood pressure 76 mm[Hg] Juhi Constance PA-C Work Phone: [facility] 09-30-2023 11:27-0400 Heart rate 94 /min Juhi Constance PA-C Work Phone: [facility] 09-30-2023 11:27-0400 Respiratory rate 16 /min Juhi Constance PA-C Work Phone: [facility] 09-30-2023 11:27-0400 SaO2% (BldA) [Mass fraction] 94 % Juhi BABCOCK-C Work Phone: [facility] Comment on above: 2L O2 NC 09-30-2023 11:27-0400 Systolic blood pressure 128 mm[Hg] Juhi BABCOCK-C Work Phone: [facility] 09-21-2023 14:52-0400 Body height 162.6 cm Yaniv Todd MD Work Phone: [facility] 09-21-2023 14:52-0400 Body weight 85.73 kg Yaniv Todd MD Work Phone: [facility] 09-21-2023 14:52-0400 Diastolic blood pressure 80 mm[Hg] Yaniv Todd MD Work Phone: [facility] 09-21-2023 14:52-0400 Heart rate 93 /min Yaniv Todd MD Work Phone: [facility] 09-21-2023 14:52-0400 SaO2% (BldA) [Mass fraction] 96 % Yaniv Todd MD Work Phone: [facility] 09-21-2023 14:52-0400 Systolic blood pressure 128 mm[Hg] Yaniv Todd MD Work Phone: [facility] 09-08-2023 14:03-0400 Body height 162.6 cm Jalyn Smith MD Work Phone: [facility] 09-08-2023 14:03-0400 Body weight 86.18 kg Jalyn Smith MD Work Phone: [facility] 09-08-2023 14:03-0400 Diastolic blood pressure 54 mm[Hg] Jalyn Smith MD Work Phone: [facility] 09-08-2023 14:03-0400 Heart rate 70 /min Jalyn Smith MD Work Phone: [facility] 09-08-2023 14:03-0400 SaO2% (BldA) [Mass fraction] 94 % Jalyn Smith MD Work Phone: [facility] 09-08-2023 14:03-0400 Systolic blood pressure 100 mm[Hg] Jalyn Smith MD Work Phone: [facility] 08-28-2023 17:48-0400 Body temperature 97.6 [degF] [facility] 08-28-2023 17:48-0400 Diastolic blood pressure 79 mm[Hg] [facility] 08-28-2023 17:48-0400 Heart rate 65 /min [facility] 08-28-2023 17:48-0400 Respiratory rate 18 /min [facility] 08-28-2023 17:48-0400 SaO2% (BldA) [Mass fraction] 95 % [facility] 08-28-2023 17:48-0400 Systolic blood pressure 115 mm[Hg] [facility] 08-28-2023 16:20-0400 Inhaled oxygen flow rate 3 L/min [facility] 08-28-2023 14:15-0400 Body height 157.[address] [facility] 07-24-2023 10:44-0500 SaO2% (BldA) [Mass fraction] 98 % Zackery Mayfield MD Work Phone: [facility] 01-19-2023 13:57-0400 Diastolic blood pressure 68 mm[Hg] Juhi Constance PA-C Work Phone: [facility] 01-19-2023 13:57-0400 Heart rate 80 /min Juhi Constance PA-C Work Phone: [facility] 01-19-2023 13:57-0400 Respiratory rate 16 /min Juhi Constance PA-C Work Phone: [facility] 01-19-2023 13:57-0400 SaO2% (BldA) [Mass fraction] 93 % Juhi Constance PA-C Work Phone: [facility] 01-19-2023 13:57-0400 Systolic blood pressure 110 mm[Hg] Juhi Nolasco PA-C Work Phone: [facility] 01-12-2023 14:27-0400 Diastolic blood pressure 70 mm[Hg] Jalyn Smith MD Work Phone: [facility] 01-12-2023 14:27-0400 Systolic blood pressure 118 mm[Hg] Jalyn Smith MD Work Phone: [facility] 01-12-2023 13:50-0400 Body height 162.6 cm Jalyn Smith MD Work Phone: [facility] 01-12-2023 13:50-0400 Body weight 93.71 kg Jalyn Smith MD Work Phone: [facility] 01-12-2023 13:50-0400 Heart rate 73 /min Jalyn Smith MD Work Phone: [facility] 01-12-2023 13:50-0400 SaO2% (BldA) [Mass fraction] 97 % Jalyn Smith MD Work Phone: [facility] 01-09-2023 09:34-0400 Body mass index (BMI) [Ratio] 34.7 kg/m2 Dr. Jalyn Smith Work Phone: [facility] 01-09-2023 09:34-0400 Body temperature 96.6 [degF] Dr. Jalyn Smith Work Phone: [facility] 01-09-2023 09:34-0400 Diastolic blood pressure 79 mm[Hg] Dr. Jalyn Smith Work Phone: [facility] 01-09-2023 09:34-0400 Heart rate 79 /min Dr. Jalyn Smith Work Phone: [facility] 01-09-2023 09:34-0400 Respiratory rate 18 /min Dr. Jalyn Smith Work Phone: [facility] 01-09-2023 09:34-0400 Systolic blood pressure 132 mm[Hg] Dr. Jalyn Smith Work Phone: [facility] 01-02-2023 10:33-0400 Body temperature 98.1 [degF] Dr. Jalyn Smith Work Phone: 7(394)698-283025 [place] [address] 01-02-2023 10:33-0400 Diastolic blood pressure 73 mm[Hg] Dr. Jalyn Smith Work Phone: 4(023)087-819325 [place] [address] 01-02-2023 10:33-0400 Heart rate 72 /min Dr. Jalyn Smith Work Phone: 0(571)662-574725 [place] [address] 01-02-2023 10:33-0400 Inhaled oxygen flow rate 3 L/min Dr. Jalyn Smith Work Phone: 1(062)698-896225 [place] [address] 01-02-2023 10:33-0400 Respiratory rate 18 /min Dr. Jalyn Smith Work Phone: 9(940)233-015325 [place] [address] 01-02-2023 10:33-0400 SaO2% (BldA) [Mass fraction] 96 % Dr. Jalyn Smith Work Phone: 8(205)655-549625 [place] [address] 01-02-2023 10:33-0400 Systolic blood pressure 127 mm[Hg] Dr. Jalyn Smith Work Phone: 5(136)935-926525 [place] [address] 12-30-2022 12:13-0400 Body mass index (BMI) [Ratio] 37 kg/m2 Dr. Jalyn Smith Work Phone: 8(635)927-209625 [place] [address] 12-30-2022 12:13-0400 Body weight 91.[address] Jalyn Smith Work Phone: 6(224)961-320425 [place] [address] 12-28-2022 10:00-0400 Inhaled oxygen concentration 96 % Dr. Jalyn Smith Work Phone: 2(008)957-919425 [place] [address] 12-24-2022 12:35-0400 Body height 157.[address] Jalyn Smith Work Phone: 4(979)541-647825 [place] [address] 12-15-2022 14:33-0400 Body temperature 97.8 [degF] Dr. Jalyn Smith Work Phone: 3(431)656-500025 [place] [address] 12-15-2022 14:33-0400 Diastolic blood pressure 91 mm[Hg] Dr. Jalyn Smith Work Phone: [facility] 12-15-2022 14:33-0400 Heart rate 85 /min Dr. Jalyn Smith Work Phone: [facility] 12-15-2022 14:33-0400 Inhaled oxygen flow rate 3 L/min Dr. Jalyn Smith Work Phone: 1(253)239-886582 [place] [address] 12-15-2022 14:33-0400 Respiratory rate 18 /min Dr. Jalyn Smith Work Phone: 9(464)748-602782 [place] [address] 12-15-2022 14:33-0400 SaO2% (BldA) [Mass fraction] 95 % Dr. Jalyn Smith Work Phone: [facility] 12-15-2022 14:33-0400 Systolic blood pressure 151 mm[Hg] Dr. Jalyn Smith Work Phone: 2(558)559-153282 [place] [address] 12-10-2022 23:10-0400 Body height 157.[address] Jalyn Smith Work Phone: [facility] 12-10-2022 23:10-0400 Body mass index (BMI) [Ratio] 37.8 kg/m2 Dr. Jalyn Smith Work Phone: 8(934)748-599782 [place] [address] 12-10-2022 23:10-0400 Body weight 93.[address] Jalyn Smith Work Phone: [facility] 12-10-2022 23:04-0400 Body temperature 98 [degF] [facility] 12-10-2022 23:04-0400 Diastolic blood pressure 86 mm[Hg] [facility] 12-10-2022 23:04-0400 Heart rate 68 /min [facility] 12-10-2022 23:04-0400 Inhaled oxygen flow rate 3 L/min [facility] 12-10-2022 23:04-0400 Respiratory rate 18 /min [facility] 12-10-2022 23:04-0400 Systolic blood pressure 163 mm[Hg] [facility] 12-10-2022 20:50-0400 SaO2% (BldA) [Mass fraction] 94 % [facility] 12-10-2022 17:53-0400 Body mass index (BMI) [Ratio] 38 kg/m2 [facility] 12-10-2022 17:53-0400 Body weight 94.[address] [facility] 12-10-2022 17:16-0400 Body height 157.[address] [facility] 12-10-2022 16:17-0400 Body height 162.6 cm Jalyn Smith MD Work Phone: [facility] 12-10-2022 16:17-0400 Body weight 93.89 kg Jalyn Smith MD Work Phone: [facility] 12-10-2022 16:17-0400 Diastolic blood pressure 66 mm[Hg] Jalyn Smith MD Work Phone: [facility] 12-10-2022 16:17-0400 Heart rate 68 /min Jalyn Smith MD Work Phone: [facility] 12-10-2022 16:17-0400 SaO2% (BldA) [Mass fraction] 96 % Jalyn Smith MD Work Phone: [facility] 12-10-2022 16:17-0400 Systolic blood pressure 116 mm[Hg] Jalyn Smith MD Work Phone: [facility] 12-06-2022 01:18-0400 Body weight 91.[address] Jalyn Smith Work Phone: [facility] 12-06-2022 01:18-0400 Inhaled oxygen flow rate 2 L/min Dr. Jalyn Smith Work Phone: [facility] 12-05-2022 11:03-0400 Body mass index (BMI) [Ratio] 34.7 kg/m2 [facility] 12-05-2022 11:03-0400 Body temperature 97.6 [degF] [facility] 12-05-2022 11:03-0400 Diastolic blood pressure 56 mm[Hg] [facility] 12-05-2022 11:03-0400 Heart rate 86 /min [facility] 12-05-2022 11:03-0400 Systolic blood pressure 100 mm[Hg] [facility] 11-21-2022 09:11-0400 Respiratory rate 18 /min [facility] 11-07-2022 09:25-0400 Inhaled oxygen flow rate 2 L/min [facility] 11-06-2022 00:33-0400 Body weight 91.[address] [facility] 10-24-2022 09:16-0400 Body mass index (BMI) [Ratio] 34.7 kg/m2 [facility] 10-24-2022 09:16-0400 Body temperature 97 [degF] [facility] 10-24-2022 09:16-0400 Diastolic blood pressure 71 mm[Hg] [facility] 10-24-2022 09:16-0400 Heart rate 60 /min [facility] 10-24-2022 09:16-0400 Respiratory rate 18 /min [facility] 10-24-2022 09:16-0400 Systolic blood pressure 166 mm[Hg] [facility] [facility] 10-17-2022 09:14-0400 Inhaled oxygen flow rate 3 L/min [facility] 10-06-2022 00:39-0400 Body weight 91.[address] [facility] 10-03-2022 08:32-0400 Body mass index (BMI) [Ratio] 34.7 kg/m2 [facility] 10-03-2022 08:32-0400 Body temperature 96.6 [degF] [facility] 10-03-2022 08:32-0400 Diastolic blood pressure 73 mm[Hg] [facility] 10-03-2022 08:32-0400 Heart rate 71 /min [facility] 10-03-2022 08:32-0400 Respiratory rate 18 /min [facility] 10-03-2022 08:32-0400 Systolic blood pressure 124 mm[Hg] [facility] 10-01-2022 13:12-0400 Body weight 93.89 kg Jalyn Smith MD Work Phone: [facility] 10-01-2022 13:12-0400 Diastolic blood pressure 72 mm[Hg] Jalyn Smith MD Work Phone: [facility] 10-01-2022 13:12-0400 Heart rate 73 /min Jalyn Smith MD Work Phone: [facility] 10-01-2022 13:12-0400 SaO2% (BldA) [Mass fraction] 95 % Jalyn Smith MD Work Phone: [facility] 10-01-2022 13:12-0400 Systolic blood pressure 112 mm[Hg] Jalyn Smith MD Work Phone: [facility] 09-26-2022 08:51-0400 Inhaled oxygen flow rate 2 L/min [facility] 09-06-2022 01:59-0400 Body weight 91.[address] [facility] 09-05-2022 09:13-0400 Body mass index (BMI) [Ratio] 34.7 kg/m2 [facility] 09-05-2022 09:13-0400 Body temperature 97.2 [degF] [facility] 09-05-2022 09:13-0400 Diastolic blood pressure 69 mm[Hg] [facility] 09-05-2022 09:13-0400 Heart rate 57 /min [facility] 09-05-2022 09:13-0400 Respiratory rate 20 /min [facility] 09-05-2022 09:13-0400 Systolic blood pressure 143 mm[Hg] [facility] 08-15-2022 08:39-0500 Inhaled oxygen flow rate 2 L/min [facility] 08-06-2022 00:35-0500 Body weight 91.[address] [facility] 08-01-2022 09:18-0500 Body mass index (BMI) [Ratio] 34.7 kg/m2 [facility] 08-01-2022 09:18-0500 Body temperature 97 [degF] [facility] 08-01-2022 09:18-0500 Diastolic blood pressure 63 mm[Hg] [facility] 08-01-2022 09:18-0500 Heart rate 66 /min [facility] 08-01-2022 09:18-0500 Respiratory rate 20 /min [facility] 08-01-2022 09:18-0500 Systolic blood pressure 118 mm[Hg] [facility] 07-25-2022 09:08-0500 Body height 162.[address] [facility] 07-25-2022 09:08-0500 Body weight 91.[address] [facility] 07-17-2022 10:15-0500 Body weight 92.99 kg Jalyn Smith MD Work Phone: [facility] 07-17-2022 10:15-0500 Diastolic blood pressure 82 mm[Hg] Jalyn Smith MD Work Phone: [facility] 07-17-2022 10:15-0500 Heart rate 64 /min Jalyn Smith MD Work Phone: [facility] 07-17-2022 10:15-0500 SaO2% (BldA) [Mass fraction] 95 % Jalyn Smith MD Work Phone: [facility] 07-17-2022 10:15-0500 Systolic blood pressure 124 mm[Hg] Jalyn Smith MD Work Phone: [facility] 06-20-2022 09:39-0500 Body weight 91.63 kg Zackery Mayfield MD Work Phone: [facility] 06-20-2022 09:39-0500 SaO2% (BldA) [Mass fraction] 90 % Zackery Mayfield MD Work Phone: [facility] 03-20-2022 10:45-0400 Body height 162.6 cm Jalyn Smith MD Work Phone: [facility] 03-20-2022 10:45-0400 Body weight 94.8 kg Jalyn Smith MD Work Phone: [facility] 03-20-2022 10:45-0400 Diastolic blood pressure 68 mm[Hg] Jalyn Smith MD Work Phone: [facility] 03-20-2022 10:45-0400 Heart rate 59 /min Jalyn Smith MD Work Phone: [facility] 03-20-2022 10:45-0400 SaO2% (BldA) [Mass fraction] 95 % Jalyn Smith MD Work Phone: [facility] 03-20-2022 10:45-0400 Systolic blood pressure 108 mm[Hg] Jalyn Smith MD Work Phone: [facility] 02-07-2022 08:40-0400 Body mass index (BMI) [Ratio] 36.4 kg/m2 [facility] Work Phone: 02-07-2022 08:40-0400 Body temperature 97.3 [degF] [facility] Work Phone: 02-07-2022 08:40-0400 Diastolic blood pressure 82 mm[Hg] [facility] Work Phone: 02-07-2022 08:40-0400 Heart rate 72 /min [facility] Work Phone: 02-07-2022 08:40-0400 Systolic blood pressure 126 mm[Hg] [facility] Work Phone: 02-06-2022 00:31-0400 Body weight 96.[address] [facility] Work Phone: 02-06-2022 00:31-0400 Inhaled oxygen flow rate 2 L/min [facility] Work Phone: 02-06-2022 00:31-0400 Respiratory rate 18 /min [facility] Work Phone: 01-24-2022 10:21-0400 Body mass index (BMI) [Ratio] 36.4 kg/m2 [facility] Work Phone: 01-24-2022 10:21-0400 Body temperature 96.2 [degF] [facility] Work Phone: 01-24-2022 10:21-0400 Diastolic blood pressure 77 mm[Hg] [facility] Work Phone: 01-24-2022 10:21-0400 Heart rate 69 /min [facility] Work Phone: 01-24-2022 10:21-0400 Systolic blood pressure 126 mm[Hg] [facility] Work Phone: 01-06-2022 00:29-0400 Body weight 96.[address] [facility] Work Phone: 01-06-2022 00:29-0400 Inhaled oxygen flow rate 2 L/min [facility] Work Phone: 01-06-2022 00:29-0400 Respiratory rate 18 /min [facility] Work Phone: 01-03-2022 08:39-0400 Body mass index (BMI) [Ratio] 36.4 kg/m2 Dr. Jalyn Smith Work Phone: [facility] Work Phone: 01-03-2022 08:39-0400 Body temperature 97.3 [degF] Dr. Jalyn Smith Work Phone: [facility] Work Phone: 01-03-2022 08:39-0400 Diastolic blood pressure 55 mm[Hg] Dr. Jalyn Smith Work Phone: [facility] Work Phone: 01-03-2022 08:39-0400 Heart rate 68 /min Dr. Jalyn Smith Work Phone: [facility] Work Phone: 01-03-2022 08:39-0400 Respiratory rate 18 /min Dr. Jalyn Smith Work Phone: [facility] Work Phone: 01-03-2022 08:39-0400 Systolic blood pressure 119 mm[Hg] Dr. Jalyn Smith Work Phone: [facility] Work Phone: 12-06-2021 00:38-0400 Body weight 96.[address] Jalyn Smith Work Phone: [facility] Work Phone: 12-06-2021 00:38-0400 Inhaled oxygen flow rate 2 L/min Dr. Jalyn Smith Work Phone: [facility] Work Phone: 11-29-2021 08:57-0400 Body mass index (BMI) [Ratio] 36.4 kg/m2 Dr. Jalyn Smith Work Phone: [facility] Work Phone: 11-29-2021 08:57-0400 Body temperature 99.6 [degF] Dr. Jalyn Smith Work Phone: [facility] Work Phone: 11-29-2021 08:57-0400 Diastolic blood pressure 80 mm[Hg] Dr. Jalyn Smith Work Phone: [facility] Work Phone: 11-29-2021 08:57-0400 Heart rate 81 /min Dr. Jalyn Smith Work Phone: [facility] Work Phone: 11-29-2021 08:57-0400 Respiratory rate 18 /min Dr. Jalyn Smith Work Phone: [facility] Work Phone: 11-29-2021 08:57-0400 Systolic blood pressure 144 mm[Hg] Dr. Jalyn Smith Work Phone: [facility] Work Phone: 11-06-2021 01:06-0400 Body weight 96.[address] Jalyn Smith Work Phone: [facility] Work Phone: 11-06-2021 01:06-0400 Inhaled oxygen flow rate 2 L/min Dr. Jalyn Smith Work Phone: [facility] Work Phone: 11-05-2021 08:26-0400 Body mass index (BMI) [Ratio] 36.4 kg/m2 Dr. Jalyn Smith Work Phone: [facility] Work Phone: 11-05-2021 08:26-0400 Diastolic blood pressure 98 mm[Hg] Dr. Jalyn Smith Work Phone: [facility] Work Phone: 11-05-2021 08:26-0400 Heart rate 76 /min Dr. Jalyn Smith Work Phone: [facility] Work Phone: 11-05-2021 08:26-0400 Systolic blood pressure 148 mm[Hg] Dr. Jalyn Smith Work Phone: [facility] Work Phone: 10-31-2021 12:57-0400 Body temperature 98.3 [degF] Dr. Jalyn Smith Work Phone: [facility] Work Phone: 10-31-2021 12:57-0400 Respiratory rate 20 /min Dr. Jalyn Smith Work Phone: [facility] Work Phone: 10-18-2021 08:55-0400 Inhaled oxygen flow rate 2 L/min Dr. Jalyn Smith Work Phone: [facility] Work Phone: 10-06-2021 00:48-0400 Body weight 96.[address] Jalyn Smith Work Phone: [facility] Work Phone: 10-04-2021 10:43-0400 Body mass index (BMI) [Ratio] 36.4 kg/m2 Dr. Jalyn Smith Work Phone: [facility] Work Phone: 10-04-2021 10:43-0400 Body temperature 97 [degF] Dr. Jalyn Smith Work Phone: [facility] Work Phone: 10-04-2021 10:43-0400 Diastolic blood pressure 71 mm[Hg] Dr. Jalyn Smith Work Phone: [facility] Work Phone: 10-04-2021 10:43-0400 Heart rate 70 /min Dr. Jalyn Smith Work Phone: [facility] Work Phone: 10-04-2021 10:43-0400 Respiratory rate 18 /min Dr. Jalyn Smith Work Phone: [facility] Work Phone: 10-04-2021 10:43-0400 Systolic blood pressure 160 mm[Hg] Dr. Jalyn Smith Work Phone: [facility] Work Phone: 09-26-2021 13:20-0400 Body height 162.[address] Jalyn Smith Work Phone: [facility] Work Phone: 09-26-2021 13:20-0400 Body weight 96.[address] Jalyn Smith Work Phone: [facility] Work Phone: 09-18-2021 16:24-0400 Body weight 97.07 kg Jalyn Smith MD Work Phone: [facility] 09-18-2021 16:24-0400 Diastolic blood pressure 62 mm[Hg] Jalyn Smith MD Work Phone: [facility] 09-18-2021 16:24-0400 Heart rate 74 /min Jalyn Smith MD Work Phone: [facility] 09-18-2021 16:24-0400 SaO2% (BldA) [Mass fraction] 98 % Jalyn Smith MD Work Phone: [facility] 09-18-2021 16:24-0400 Systolic blood pressure 122 mm[Hg] Jalyn Smith MD Work Phone: [facility] 09-13-2021 15:00-0400 Diastolic blood pressure 78 mm[Hg] MAN Rodríguez PA-C Work Phone: [facility] 09-13-2021 15:00-0400 Heart rate 88 /min NA Rodríguez PA-C Work Phone: [facility] 09-13-2021 15:00-0400 SaO2% (BldA) [Mass fraction] 100 % NA Rodríguez PA-C Work Phone: [facility] 09-13-2021 15:00-0400 Systolic blood pressure 132 mm[Hg] NA Rodríguez PA-C Work Phone: [facility] 08-30-2021 12:07-0400 Body mass index (BMI) [Ratio] 38.9 kg/m2 Dr. Jalyn Smith Work Phone: [facility] Work Phone: 08-30-2021 12:07-0400 Body temperature 96.8 [degF] Dr. Jalyn Smith Work Phone: [facility] Work Phone: 08-30-2021 12:07-0400 Body weight 96.[address] Jalyn Smith Work Phone: [facility] Work Phone: 08-30-2021 12:07-0400 Diastolic blood pressure 71 mm[Hg] Dr. Jalyn Smith Work Phone: [facility] Work Phone: 08-30-2021 12:07-0400 Heart rate 64 /min Dr. Jalyn Smith Work Phone: [facility] Work Phone: 08-30-2021 12:07-0400 Respiratory rate 17 /min Dr. Jalyn Smith Work Phone: [facility] Work Phone: 08-30-2021 12:07-0400 SaO2% (BldA) [Mass fraction] 100 % Dr. Jalyn Smith Work Phone: [facility] Work Phone: 08-30-2021 12:07-0400 Systolic blood pressure 158 mm[Hg] Dr. Jalyn Smith Work Phone: [facility] Work Phone: 08-09-2021 08:19-0500 Body temperature 98.4 [degF] Dr. Jalyn Smith Work Phone: [facility] Work Phone: 08-09-2021 08:19-0500 Diastolic blood pressure 60 mm[Hg] Dr. Jalyn Smith Work Phone: [facility] Work Phone: 08-09-2021 08:19-0500 Heart rate 83 /min Dr. Jalyn Smith Work Phone: [facility] Work Phone: 08-09-2021 08:19-0500 Respiratory rate 18 /min Dr. Jalyn Smith Work Phone: [facility] Work Phone: 08-09-2021 08:19-0500 SaO2% (BldA) [Mass fraction] 94 % Dr. Jalyn Smith Work Phone: [facility] Work Phone: 08-09-2021 08:19-0500 Systolic blood pressure 99 mm[Hg] Dr. Jalyn Smith Work Phone: [facility] Work Phone: 08-06-2021 10:40-0500 Body weight 95.[address] Jalyn Smith Work Phone: [facility] Work Phone: 08-03-2021 13:23-0500 Inhaled oxygen concentration 4 % Dr. Jalyn Smith Work Phone: [facility] Work Phone: 07-25-2021 20:02-0500 Body mass index (BMI) [Ratio] 36.3 kg/m2 Dr. Jalyn Smith Work Phone: [facility] Work Phone: 07-25-2021 17:49-0500 Heart rate 78 /min Dr. Jalyn Smith Work Phone: [facility] Work Phone: 07-25-2021 17:49-0500 Respiratory rate 18 /min Dr. Jalyn Smith Work Phone: [facility] Work Phone: 07-25-2021 16:56-0500 Body temperature 98.5 [degF] Dr. Jalyn Smith Work Phone: [facility] Work Phone: 07-25-2021 16:56-0500 Diastolic blood pressure 73 mm[Hg] Dr. Jalyn Smith Work Phone: [facility] Work Phone: 07-25-2021 16:56-0500 SaO2% (BldA) [Mass fraction] 94 % Dr. Jalyn Smith Work Phone: [facility] Work Phone: 07-25-2021 16:56-0500 Systolic blood pressure 120 mm[Hg] Dr. Jalyn Smith Work Phone: [facility] Work Phone: 07-25-2021 00:08-0500 Body mass index (BMI) [Ratio] 39.8 kg/m2 Dr. Jalyn Smith Work Phone: [facility] Work Phone: 07-25-2021 00:08-0500 Body weight 102.[address] Jalyn Smith Work Phone: [facility] Work Phone: 12-23-2018 16:15-0400 Body temperature 36.[address] [facility] Comment on above: Performed By: #### [id number] #### [place] [id number] 12-23-2018 05:49-0400 Body temperature 36.[address] [facility] Comment on above: Performed By: #### ABG #### [facility] [address] [place], [place] [address] Encounters Encounter Date Encounter Type Care Provider Facility Start: 03-22-2025 End: 03-22-2025 ambulatory JALYN SMITH Facility:[facility] Start: 03-22-2025 End: 03-22-2025 ambulatory JALYN SMITH Facility:[facility] Start: 03-22-2025 Patient encounter procedure JALYN SMITH [facility] Start: 03-08-2025 End: 03-08-2025 ambulatory ORAL PERDUE Facility:[facility] Start: 01-29-2025 End: 01-31-2025 Refill Ann Hutchinson MD Work Phone: Pulmonology Comment on above: Refill Request Start: 01-24-2025 End: 01-25-2025 Telephone encounter Jalyn Smith MD Work Phone: [facility] [place] Comment on above: Forms Start: 01-20-2025 End: 01-20-2025 ambulatory Jalyn Smith MD Work Phone: [facility] Start: 01-20-2025 End: 01-20-2025 Patient encounter procedure Jalyn Smith MD Work Phone: [facility] Comment on above: Population Health Na vigation [...] Jalyn Smith MD Work Phone: [facility] Start: 12-21-2024 End: 12-21-2024 Patient encounter procedure Jalyn Smith MD Work Phone: [facility] [place] Comment on above: Population Health Na vigation [...] Jalyn Smith MD Work Phone: [facility] [place] Comment on above: Meds Start: 12-02-2024 End: 12-02-2024 Subsequent hospital visit by physician [facility] Radiology Comment on above: 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] Start: 12-02-2024 End: 12-02-2024 ambulatory JALYN SMITH Facility:[facility] Start: 11-30-2024 End: 11-30-2024 ambulatory Zackery Mayfield MD Work Phone: Pulmonary Medicine Comment on above: Breztri Start: 11-28-2024 End: 11-29-2024 ambulatory Jalyn Smith MD Work Phone: [facility] [place] Comment on above: Meds Start: 11-21-2024 End: 11-21-2024 ambulatory Jalyn Smith MD Work Phone: [facility] Start: 11-21-2024 End: 11-21-2024 Patient encounter procedure Jalyn Smith MD Work Phone: [facility] Comment on above: Population Health Na vigation [...] Jalyn Smith MD Work Phone: [facility] [place] Comment on above: New presciption Ct scan Start: 10-18-2024 End: 10-18-2024 ambulatory Jalyn Smith MD Work Phone: [facility] [place] Comment on above: Ropinirole Start: 10-10-2024 End: 10-10-2024 ambulatory Katherine Gómez RN [facility] Comment on above: Primary Care Coordin ator- Other Start: 10-05-2024 End: 10-05-2024 ambulatory Jalyn Smith MD Work Phone: [facility] [place] Comment on above: Ropinirole Start: 10-03-2024 End: 10-03-2024 Refill Jalyn Smith MD Work Phone: [facility] [place] Comment on above: Refill Request Start: 09-30-2024 End: 10-03-2024 Refill Jalyn Smith MD Work Phone: [facility] [place] Comment on above: Refill Request Start: 09-20-2024 End: 09-21-2024 Refill Jalyn Smith MD Work Phone: [facility] [place] Comment on above: Refill Request Start: 09-08-2024 End: 11-08-2024 Follow-up encounter Jalyn Smith MD Work Phone: Pulmonology [facility] Start: 09-07-2024 End: 09-07-2024 Patient encounter procedure Jayln Smith MD Work Phone: [facility] [place] Comment on above: Urinary tract infect ion without hematuria, site unspecified (Primary Dx); Essential hypertension; Type 2 diabetes mellitus without complication, without long-term current use of insulin (HCC); Acute constipation; Abdominal pain, unspecified abdominal location; Chronic respiratory failure with hypoxia (HCC) Start: 09-07-2024 End: 09-07-2024 ambulatory Jalyn Smith MD Work Phone: [facility] Comment on above: Cataract Start: 09-04-2024 End: 09-04-2024 Emergency department patient visit Dr. Jalyn Smith MD Work Phone: -Emergency Department Work Phone: Start: 2024 End: 2024 Telephone encounter Jalyn Smith MD Work Phone: [facility] Comment on above: Patient Question Start: 08-25-2024 End: 08-25-2024 ambulatory Jalyn Smith MD Work Phone: [facility] Start: 08-25-2024 End: 08-25-2024 Patient encounter procedure Jalyn Smith MD Work Phone: [facility] Comment on above: Population Health Na vigation Outreach ([employer] [facility] [place] ) Start: 08-03-2024 End: 08-03-2024 Get Medical Advice Jalyn Smith MD Work Phone: [facility] Comment on above: refills Refill Request Start: 08-02-2024 End: 08-02-[address] Jalyn Smith MD Work Phone: [facility] Work Phone: Start: 08-02-2024 End: 08-02-[address] Chin Paul MD -Laboratory Work Phone: Start: 08-02-2024 End: 08-02-2024 ambulatory Chin Paul Facility:[facility] Start: 06-07-2024 End: 06-09-2024 Refill Jalyn Smith MD Work Phone: [facility] Comment on above: Refill Request Start: 05-16-2024 End: 05-17-2024 Refill Jalyn Smith MD Work Phone: [facility] Comment on above: Refill Request Start: 05-16-2024 End: 05-17-2024 Refill Juhi Nolasco PA-C Work Phone: Pulmonary Medicine Comment on above: Med Change Request Start: 05-13-2024 End: 05-16-2024 Admission to same day surgery center Jalyn Smith MD Work Phone: [facility] Comment on above: knee surgery Start: 05-13-2024 End: 05-16-2024 ambulatory Jalyn Smith MD Work Phone: [facility] Start: 04-28-2024 End: 04-28-2024 ambulatory Selene Anaya RN Work Phone: [facility] Comment on above: community monitoring ([facility] telephonic/) Start: 04-14-2024 End: 04-14-2024 ambulatory Jalyn Smith MD Work Phone: [facility] Comment on above: magnesium Start: 04-14-2024 End: 04-14-2024 Telephone encounter Jalyn Smith MD Work Phone: [facility] Comment on above: Results Start: 04-13-2024 End: 04-13-2024 ambulatory JALYN SMITH Facility:[facility] Start: 04-10-2024 End: 04-11-2024 Refill Fay Leone APRN.CNP Work Phone: Pulmonology Comment on above: Refill Request Start: 03-31-2024 End: 03-31-2024 ambulatory Selene Anaya RN Work Phone: [facility] Comment on above: community monitoring (CDM [...] 03-03-2024 ambulatory Selene Anaya RN Work Phone: [facility] Comment on above: community monitoring ([facility] telephonic/) Refill Request refills Start: 02-27-2024 End: 02-29-2024 Refill Jalyn Smith MD Work Phone: [facility] [place] Comment on above: Refill Request Start: 02-09-2024 End: 02-09-2024 Refill Casandra Kinsey TRANSIT COACH OPERATORLeslyKILN STOKER Work Phone: [facility] [place] Comment on above: Refill Request Start: 02-03-2024 End: 02-03-2024 ambulatory Selene Anaya RN Work Phone: [facility] Comment on above: community monitoring ([facility] telephonic/) Start: 02-01-2024 End: 02-01-2024 ambulatory Juhi Nolasco PA-C Work Phone: Pulmonary Medicine Comment on above: Breztri Start: 01-11-2024 Refill Jalny Smith MD Work Phone: [facility] Comment on above: Refill Request community monitoring ([facility] telephonic/) Start: 01-06-2024 End: 01-06-2024 Patient encounter procedure Juhi Nolasco PA-C Work Phone: Pulmonary Medicine Comment on above: COPD, severe (HCC) ( Primary Dx); Chronic respiratory failure with hypoxia (HCC); Former cigarette smoker; Class 2 obesity Start: 12-14-2023 ambulatory Selene quinones RN Work Phone: [facility] Comment on above: community monitoring ([facility] telephonic/) Start: 11-18-2023 Refill Juhi Velazquez PA-C Work Phone: Pulmonary Medicine Comment on above: Refill Request; Open ed In Error Kayla Start: 11-16-2023 ambulatory Selene quinones RN Work Phone: [facility] Start: 11-12-2023 Refill Jalyn Smith MD [...] 11-03-2023 ambulatory Jahaira Fletcher RN [employer] MANA[employer] Comment on above: General Questions change of provider Start: 10-28-2023 Refill Jalyn Smith MD Work Phone: [facility] [place] Comment on above: Refill Request Start: 10-26-2023 ambulatory Zackery Mayfield MD Work Phone: Pulmonary Medicine Comment on above: inhaler Start: 10-19-2023 ambulatory Selene quinones RN Work Phone: [facility] Comment on above: community monitoring ([facility] telephonic/) Start: 10-14-2023 End: 10-14-2023 Subsequent hospital visit by physician [facility] Radiology Comment on above: Thoracic aortic aneu rysm without rupture, unspecified part ([facility]) [I71.20] Start: 10-02-2023 Refill Jalyn Smith MD Work Phone: [facility] [place] Comment on above: Refill Request Start: 09-30-2023 End: 09-30-2023 ambulatory [facility] Work Phone: [facility] Comment on above: Spirometry Start: 09-30-2023 End: 09-30-2023 Patient encounter procedure [facility] Work Phone: [facility] Start: 09-30-2023 End: 09-30-2023 Patient encounter [...] E-mail encounter jessica quinones caregiver [facility] Provider [facility] Start: 09-21-2023 End: 09-21-2023 Patient encounter procedure [...] 09-21-2023 ambulatory Selene Anaya RN Work Phone: [facility] Comment on above: community monitoring (CDM [...] 09-08-2023 Subsequent hospital visit by physician [facility] Work Phone: Radiology Comment on above: Bacterial pneumonia [J15.9] Start: 09-08-2023 End: 09-08-2023 Patient encounter procedure Jalyn Smith MD Work Phone: [facility] Comment on above: Bacterial pneumonia (Primary Dx); Type 2 diabetes mellitus without complication, without long-term current use of insulin (HCC); Chronic respiratory failure with hypoxia (HCC); MICHEL (obstructive sleep apnea) Start: 08-28-2023 End: 08-28-2023 [facility] Start: 08-28-2023 Telephone encounter Jalyn Smith MD Work Phone: [facility] Comment on above: Nurse Triage Call Start: 08-28-2023 End: 08-28-2023 ambulatory Nurse Intm/Famp Triage [facility] Work Phone: Nurse Phone Triage Comment on above: Abdominal Pain Start: 08-27-2023 ambulatory Zackery Mayfield MD Work Phone: Pulmonary Medicine Comment on above: breathing Start: 08-26-2023 Refill Casandra Kimball upcherie TRANSIT COACH OPERATOR.KISS MIXER Work Phone: [facility] Comment on above: Refill Request Start: 08-24-2023 ambulatory Selene quinones RN Work Phone: [facility] Comment on above: community monitoring (CDM telephonic/) Refill Request Start: 08-17-2023 ambulatory Selene quinones RN Work Phone: [facility] Comment on above: community monitoring (CDM telephonic/) Start: 08-03-2023 Refill Jalyn Smith MD Work Phone: [facility] Comment on above: Refill Request Start: 07-24-2023 End: 07-24-2023 Patient encounter procedure Zackery Mayfield MD Work Phone: Pulmonary Medicine Comment on above: COPD, severe (HCC) ( Primary Dx); Chronic respiratory failure with hypoxia (HCC); Former cigarette smoker; Class 2 obesity Start: 07-20-2023 ambulatory Selene quinones RN Work Phone: [facility] Comment on above: community monitoring (CDM telephonic/) Start: 07-16-2023 ambulatory Selene quinones RN Work Phone: [facility] Comment on above: community monitoring (CDM telephonic/) Start: 05-18-2023 Refill Zackery Mayfield MD Work Phone: Pulmonary Medicine Comment on above: Refill Request Start: 05-03-2023 Refill Jalyn Smith MD Work Phone: [facility] Comment on above: Refill Request Start: 04-22-2023 ambulatory Juliann Fleming RN Work Phone: [facility] Comment on above: Community monitoring outreach (CDM Telephonic outreach) Start: 03-30-2023 Social Work Lizett Restrepo FATBACK TRIMMER Nate al Start: 03-27-2023 ambulatory Selene quinones RN Work Phone: [facility] Comment on above: community monitoring (CDM telephonic/) Refill Request Start: 03-12-2023 Get Medical Advice Vi Mayfield MD Work Phone: Pulmonary Medicine Comment on above: med refill Start: 02-18-2023 End: 02-18-[address] Jalyn Smith Work Phone: [facility] Work Phone: Start: 02-18-2023 End: 02-18-[address] Jalyn Smith Work Phone: [facility] Work Phone: Start: 02-10-2023 ambulatory Selene quinones RN Work Phone: [facility] Comment on above: community monitoring (CDM telephonic/) Start: 02-04-2023 Telephone encounter Jalyn Smith MD Work Phone: [facility] Comment on above: Forms Start: 01-22-2023 ambulatory No Pcp TRANSIT COACH OPERATOR Jaspreet Curran Start: 01-21-2023 End: 01-21-[address] Jalyn Smith Work Phone: [facility] Work Phone: Start: 01-21-2023 End: 01-21-[address] Jalyn Smith Work Phone: [facility]-Radiology, [facility] Work Phone: Start: 01-21-2023 Telephone encounter Jalyn Smith MD Work Phone: [facility] Comment on above: Patient Update; Orde [...] Jalyn Smith MD Work Phone: [facility] Comment on above: Pain Management Refe rral Start: 01-14-2023 Telephone encounter Jalyn Smith MD Work Phone: [facility] Comment on above: Results Start: 01-12-2023 ambulatory Selene quinones RN Work Phone: [facility] Comment on above: community monitoring ([facility] telephonic/) Start: 01-12-2023 End: 01-12-2023 Patient encounter procedure Jalyn Smith MD Work Phone: [facility] Comment on above: Diarrhea, unspecifie d [...] 01-09-[address] Jalyn Smith Work Phone: [facility] Work Phone: Start: 01-09-2023 End: 01-09-[address] Jalyn Smith Work Phone: [facility] Work Phone: Start: 01-08-2023 Telephone encounter Jalyn Smith MD Work Phone: [facility] [place] Comment on above: [facility] OT POC update Refill Request Start: 12-15-2022 End: 12-15-2022 Non-patient / Non-visit Dr. Jalyn Smith Work Phone: [facility] Work Phone: Start: 12-15-2022 End: 01-02-2023 Evaluation and management of inpatient Dr. Jalyn Smith Work Phone: [facility]Transitional Care Unit Start: 12-15-2022 ambulatory Selene quinones RN Work Phone: [facility] Comment on above: community monitoring (CDM [...] Phone: Start: 12-11-2022 ambulatory Herminia KHAN SE ASSISTANT HOUSEKEEPING MANAGER Comment on above: Information Start: 12-11-2022 Non-patient / Non-visit Dr. Shasta Smith Work Phone: [facility] Work Phone: Start: 12-10-2022 Non-patient / Non-visit Dr. Shasta Smith Work Phone: [facility] Work Phone: Start: 12-10-2022 End: 12-15-2022 Evaluation and management of inpatient [facility] 3 Work Phone: Start: 12-10-2022 End: 12-15-[address] Jalyn Smith Work Phone: [facility] Work Phone: Start: 12-10-2022 End: 12-10-2022 Patient encounter procedure Jalyn Smith MD Work Phone: [facility] Comment on above: Essential hypertensi on (Primary [...] Telephone encounter Jalyn Smith MD Work Phone: [facility] Comment on above: Patient Update Start: 12-05-2022 End: 12-05-2022 ambulatory [facility] Work Phone: Start: 12-05-2022 End: 12-05-2022 Discharged Recurring [facility] Work Phone: Start: 11-13-2022 ambulatory Selene quinones RN Work Phone: [facility] Comment on above: community monitoring (CDM telephonic/) Start: 10-24-2022 End: 11-05-2022 [facility] Work Phone: Start: 10-24-2022 End: 11-05-2022 Discharged Recurring [facility] Start: 10-15-2022 Refill Jalyn Smith MD Work Phone: [facility] Comment on above: Refill Request Start: 10-14-2022 ambulatory Darlene Brewster Work Phone: [facility] Comment on above: CDM (Check in call/) Start: 10-03-2022 End: 10-05-2022 [facility] Work Phone: Start: 10-03-2022 End: 10-05-2022 Discharged Recurring [facility] Start: 10-01-2022 End: 10-01-2022 Patient encounter procedure Jalyn Smith MD Work Phone: [facility] Comment on above: Essential hypertensi on (Primary [...] 09-27-2022 ambulatory Jalyn Smith MD Work Phone: [facility] Start: 09-27-2022 Patient encounter procedure Jalyn Smith MD Work Phone: [facility] Comment on above: appointment Start: 09-19-2022 ambulatory Amol Sinha RN NURS E ASSISTANT HOUSEKEEPING MANAGER Comment on above: Information Start: 09-11-2022 ambulatory Darlene Brewster Work Phone: [facility] Comment on above: cdm (Check in call/) Start: 09-05-2022 End: 09-05-2022 [facility] Work Phone: Start: 09-05-2022 End: 09-05-2022 Discharged Recurring [facility] Start: 09-01-2022 Telephone encounter Dayami Darby MD Work Phone: [facility] Comment on above: Appointment (Appoint ment) Start: 08-06-2022 ambulatory Darlene Salazar N Work Phone: [facility] Comment on above: CDM (Check in call/) Start: 08-01-2022 End: 08-05-2022 ambulatory [facility] Work Phone: Start: 08-01-2022 End: 08-05-2022 Discharged Recurring [facility] Start: 07-21-2022 Refill Jalyn Smith MD Work Phone: [facility] Comment on above: Refill Request Start: 07-17-2022 End: 07-17-2022 Patient encounter procedure Jalyn Smith MD Work Phone: [facility] Comment on above: Venous stasis ulcer of right calf without varicose veins, unspecified ulcer stage (HCC) (Primary Dx); Essential hypertension; Type 2 diabetes mellitus without complication, without long-term current use of insulin (HCC) Start: 07-15-2022 Telephone encounter Jalyn Smith MD Work Phone: [address] [place] [address] Comment on above: Orders Start: 07-08-2022 ambulatory Darlenetrey Salazar N Work Phone: [facility] Comment on above: CDM (Check in call/) Start: 07-02-2022 Refill Juhi Velazquez PA-C Work Phone: Pulmonary Medicine Comment on above: Refill Request Start: 06-30-2022 [facility] Get Medical Advice Jalyn Smith MD Work Phone: [facility] Comment on above: auto refill Refill Request Start: 06-26-2022 Refill Jalyn Smith MD Work Phone: [facility] Comment on above: Refill Request Start: 06-23-2022 ambulatory Zackery Mayfield MD Work Phone: Pulmonary Medicine Comment on above: non urgent question Start: 06-20-2022 End: 06-20-2022 Patient encounter procedure Zackery Mayfield MD Work Phone: Pulmonary Medicine Comment on above: Stage 3 severe COPD by GOLD classification ([facility]) (Primary Dx); Dependence on continuous supplemental oxygen; Class 1 obesity due to excess calories with body mass index (BMI) of 34.0 to 34.9 in adult, unspecified whether serious comorbidity present Start: 06-13-2022 ambulatory Verónica Sanchez MA [facility] Comment on above: Population Health Na vigation Outreach (hcc) Start: 06-10-2022 ambulatory Darlene Urbano R N Work Phone: [facility] Comment on above: cdm (Check in call/) Start: 06-06-2022 ambulatory Darlene Urbano R N Work Phone: [facility] Comment on above: CDM (Check in call/) Start: 05-09-2022 Refill Juhi Velazquez PA-C Work Phone: Pulmonary Medicine Comment on above: Refill Request Start: 05-07-2022 ambulatory Darlene Urbano R N Work Phone: [facility] Comment on above: CDM (Check in call/) Start: 04-18-2022 Telephone encounter Dayami Darby MD Work Phone: [facility] Comment on above: Appointment (Appoint ment) Start: 04-18-2022 End: 04-18-2022 Subsequent hospital visit by physician [facility] (I-Stat) Work Phone: Cat Scan Comment on above: 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] Start: 04-07-2022 ambulatory Darlene Islas May R N Work Phone: [facility] Start: 04-07-2022 Follow-up encounter Darlene blackman RN Work Phone: [facility] Comment on above: Community Monitoring Outreach (inSight questionnaire follow up/) Start: 03-26-2022 ambulatory Maria Alejandra fernández TRANSIT COACH OPERATOR.KILN STOKER Work Phone: Pulmonary Medicine Start: 03-25-2022 ambulatory Violeta Chandra RN Work Phone: NURSE ASSISTANT HOUSEKEEPING MANAGER Comment on above: Patient Question (Re garding [...] dissection, abdominal (HCC) Start: 03-17-2022 [facility] Comment on above: Population Health Na vigation Outreach ([facility] [place]) Start: 03-12-2022 Telephone encounter Lizett Kidd Comment on above: Social Work Services Start: 03-11-2022 ambulatory Darlene Brewster Work Phone: [employer] Start: 03-11-2022 Follow-up encounter Darlene blackman RN Work Phone: [facility] Comment on above: community monitoring outreach (inSight questionnaire follow up/) Start: 03-10-2022 ambulatory Darlene Salazar N Work Phone: [facility] Start: 03-10-2022 Follow-up encounter Darlene blackman RN Work Phone: [facility] Comment on above: Community Monitoring Outreach (inSight questionnaire follow up/) Start: 03-06-2022 Refill Jalyn Smith MD Work Phone: [facility] [place] Comment on above: Refill Request Start: 02-25-2022 Refill Jalyn Smith MD Work Phone: [facility] [place] Comment on above: Refill Request Start: 02-19-2022 ambulatory Darlene Islas May R N Work Phone: [facility] Comment on above: community monitorion g outreach (inSight enrollment with [facility] introduction/) Start: 02-17-2022 ambulatory Darlene Islas May R N Work Phone: [facility] Comment on above: community monitoring outreach (inSight enrollment with [facility] introduction/) Start: 02-14-2022 ambulatory Darlene Urbano R N Work Phone: [facility] Comment on above: community monitoring outreach (inSight enrollment with [facility] introduction/) Start: 02-14-2022 Follow-up encounter Jalyn Smith MD Work Phone: [facility] [place] Comment on above: follow up Start: 02-09-2022 ambulatory Darlene Urbano R N Work Phone: [facility] Comment on above: community monitoring outreach (inSight enrollment with [facility] introduction/) Start: 02-07-2022 End: 02-13-2022 ambulatory [facility] Work Phone: Start: 02-07-2022 End: 02-13-2022 Discharged Recurring [facility] Start: 02-05-2022 Telephone encounter Jalyn Smith MD Work Phone: [facility] [place] Comment on above: Insurance Authorizat ion Start: 01-31-2022 Refill Jalyn Smith MD Work Phone: [facility] [place] Comment on above: Refill Request Start: 01-24-2022 End: 02-05-2022 ambulatory [facility] Work Phone: Start: 01-24-2022 End: 02-05-2022 Discharged Recurring [facility] Start: 01-03-2022 End: 01-05-[address] Jalyn Smith Work Phone: [facility] Start: 12-21-2021 ambulatory Jalyn Smtih MD Work Phone: [facility] Start: 12-21-2021 Follow-up encounter Jalyn Smith MD Work Phone: [facility] [place] Comment on above: follow-up Start: 12-20-2021 Refill Jalyn Smith MD Work Phone: [facility] [place] Comment on above: Refill Request Start: 12-01-2021 Refill Jalyn Smith MD Work Phone: [facility] [place] Comment on above: Refill Request Start: 11-29-2021 End: 12-05-[address] Jalyn Smith Work Phone: [facility] Start: 11-05-2021 End: 11-05-[address] Jalyn Smith Work Phone: [facility] Start: 10-28-2021 Refill Jalyn Smith MD Work Phone: [facility] [place] Comment on above: Refill Request Start: 10-26-2021 Refill Jalyn Smith MD Work Phone: [facility] [place] Comment on above: Refill Request Start: 10-24-2021 ambulatory Jalyn Smith MD Work Phone: [facility] [place] Comment on above: knees Refill Request Start: 10-04-2021 End: 10-05-[address] Jalyn Smith Work Phone: [facility] Start: 09-26-2021 Non-patient / Non-visit Dr. Shasta Smith Work Phone: [facility] Start: 09-23-2021 Refill Juhi Velazquez PA-C Work Phone: Pulmonary Medicine Comment on above: Refill Request Start: 09-19-2021 Refill Jalyn Smith MD Work Phone: [facility] [place] Comment on above: Refill Request Start: 09-18-2021 End: 09-18-2021 Patient encounter procedure Jalyn Smith MD Work Phone: [facility] [place] Comment on above: Wound of left lower extremity, subsequent encounter (Primary Dx) Start: 09-13-2021 End: 09-13-2021 Patient encounter procedure Anthony Rodríguez PA-C Work Phone: [facility] Comment on above: Puncture wound of le ft calf (Primary Dx) Start: 09-11-2021 ambulatory Rolf Ackerman [facility] Comment on above: Population Health Na vigation Outreach ([employer] care gaps) Start: 09-09-2021 Refill Anthony BABCOCK-C Work Phone: [facility] Comment on above: Refill Request Start: 09-06-2021 Telephone encounter Jalyn Smith MD Work Phone: [facility] Comment on above: ER FU apt Start: 08-30-2021 End: 08-30-2021 Emergency department patient visit Dr. Jalyn Smith Work Phone: [facility]-Emergency Department Start: 08-15-2021 Telephone encounter Jalyn Smith MD Work Phone: [facility] Comment on above: [facility] OT POC Start: 08-06-2021 Non-patient / Non-visit Dr. Shasta Smith Work Phone: [facility] Start: 07-26-2021 Non-patient / Non-visit Dr. Shasta Smith Work Phone: [facility] Start: 07-25-2021 End: 08-09-2021 Evaluation and management of inpatient Dr. Jalyn Smith Work Phone: [facility]Transitional Care [facility] Start: 07-25-2021 Non-patient / Non-visit Dr. Shasta Smith Work Phone: [facility] Start: 07-25-2021 End: 07-25-2021 Evaluation and management of inpatient Dr. Jalyn Smith [facility] Start: 02-16-2022 Telephone encounter Jalyn Smith MD Work Phone: [facility] Comment on above: Patient Update Start: 10-11-2020 ambulatory SCOOTER JUAREZ [facility] Procedures Date Procedure Procedure Detail Performing Clinician [...] ntrst mtrl w/wo cntrst img Herminia Carrera TRANSIT COACH OPERATOR.KILN STOKER Work Phone: Start: 04-18-2022 Ct angiography chest w/contrast/noncontrast Herminia Carrera APRN.KILN STOKER Work Phone: Start: 03-20-2022 [employer] [place] COVI D-19 BIVALENT BOOSTER VACCINE, AGE 12+ [...] Detail Author Start: 2031 Urine microalbumin profile [facility] Start: 03-09-2027 Diabetes Screening Diabetes Screening [facility] Start: 09-26-2025 Glaucoma screening Dilated Retinal Exam [facility] Start: 09-07-2025 Annual PCP Team Chronic Disease Visit Annual PCP Team Chronic Disease Visit [facility] Start: 09-07-2025 BP Controlled (<130/80) BP Controlled (<130/80) [facility] Start: 09-07-2025 Covid-19 Vaccine () Covid-19 Vaccine () [facility] Comment on above: Postponed from 09/07/2024 (Declined at t his time) Start: 09-07-2025 Diabetic foot examination Diabetic Foot Exam [facility] Start: 09-07-2025 Hepatitis B screening Urine Albumin:Creatinine Ratio [facility] Start: 09-07-2025 Hepatitis B surface antibody level LDL Cholesterol [facility] Start: 08-15-2025 Glaucoma screening Dilated Retinal Exam [facility] Start: 03-25-2025 COLOGUARD (FIT-DNA) COLOGUARD (FIT-DNA) [facility] Start: 03-25-2025 COLORECTAL CANCER SCREENING COLORECTAL CANCER SCREENING [facility] Start: 03-25-2025 Screening for malignant neoplasm of colon [facility] Start: 03-22-2025 End: 03-22-2025 Patient encounter procedure [facility] Comment on above: 6 mo/physical 6 mo/wellness Start: 03-09-2025 Annual PCP Team Chronic Disease Visit Annual PCP Team Chronic Disease Visit [facility] Start: 03-09-2025 Anxiety Screening Anxiety Screening [facility] Start: 03-09-2025 BP Controlled (<130/80) BP Controlled (<130/80) [facility] Start: 03-09-2025 Hemoglobin A1c measurement HbA1C [facility] Start: 03-09-2025 Shingrix Vaccine (1 of 2) Shingrix Vaccine (1 of 2) [facility] Comment on above: Postponed from 08/30/1997 (Declined at t his time) Start: 02-15-2025 End: 02-15-2025 Patient encounter procedure Pulmonary Medicine Comment on above: oxygen renewal Start: 02-15-2025 End: 02-15-2025 ambulatory 02/15/2025 1:00 PM EDT Procedure [facility] [address] [place] [address] Wstr, [facility] [address] [place] [address] O2 recert [facility] Comment on above: O2 recert Start: 02-06-2025 Influenza vaccination Influenza Vaccine (#1) [facility] Start: 12-15-2024 End: 12-15-2024 Patient encounter procedure 12/15/2024 1:30 PM EDT Office Visit Vascular Surgery [address] [address] Yaniv Todd MD [address] [address] follow up Vascular Surgery Comment on above: follow up Start: 12-12-2024 End: 12-12-2024 Follow-up encounter 12/12/2024 3:00 PM EDT [facility] [address] [id number] Yaniv Todd MD [address] [id number] follow up chronic type B aortic dissection [...] ambulatory 12/02/2024 12:45 PM EDT Results Only [facility] [address] [place] [address] [facility] Comment on above: CREATINE Start: 12-02-2024 End: 12-02-2024 Patient encounter procedure 12/02/2024 11:20 AM EDT Appointment Cat Scan [address] [place] [address] CTA CHEST (NONGATED) W IVCON Cat Scan Comment on above: CTA CHEST (NONGATED) W IVCON Start: 11-17-2024 End: 02-16-2025 Creatinine and Glomerular filtration rate.predicted panel - Serum, Plasma or Blood CREATININE BLD Lab Routine 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 Work Phone: Comment on above: Expected: 11/04/2024, Expires: Start: 10-26-2024 Shingrix Vaccine (2 of 2) Shingrix Vaccine (2 of 2) [facility] Start: 09-29-2024 BP Controlled (<130/80) BP Controlled (<130/80) [facility] Start: 09-07-2024 End: 09-07-2024 Patient encounter procedure 09/07/2024 2:40 PM EDT Office Visit [facility] [address] [place] [address] Jalyn Smith MD [address] [place] [address] 6 month follow up [facility] Comment on above: 6 month follow up Start: 09-07-2024 Annual PCP Team Chronic Disease Visit Annual PCP Team Chronic Disease Visit [facility] Start: 09-07-2024 BP Controlled (<130/80) BP Controlled (<130/80) [facility] Start: 09-07-2024 Covid-19 Vaccine () Covid-19 Vaccine () [facility] Comment on above: Postponed from 02/06/2023 (Declined at t his time) Start: 09-07-2024 Covid-19 Vaccine () Covid-19 Vaccine () [facility] Start: 09-07-2024 Diabetic foot examination Diabetic Foot Exam [facility] Start: 09-07-2024 End: 12-07-2024 Hemoglobin A1c in Blood [facility] Comment on above: Expected: 09/07/2024, Expires: Start: 09-07-2024 Hemoglobin A1c measurement HbA1C [facility] Start: 09-07-2024 Hepatitis B screening Urine Albumin:Creatinine Ratio [facility] Start: 09-07-2024 Hepatitis B surface antibody level LDL Cholesterol [facility] Start: 09-07-2024 Hepatitis C screening Hepatitis C Screening [facility] Comment on above: Postponed from 08/30/1965 (Declined at t his time) Start: 09-07-2024 End: 12-07-2024 LIPID PANEL, NONFASTING [facility] Work Phone: Comment on above: Expected: 09/07/2024, Expires: Start: 09-07-2024 End: 12-07-2024 Magnesium [Mass/volume] in Serum or Plasma [facility] Comment on above: Expected: 09/07/2024, Expires: Start: 09-07-2024 End: 12-07-2024 Microalbumin/Creatinine [Mass Ratio] in Urine [facility] Comment on above: Expected: 09/07/2024, Expires: Start: 09-07-2024 RSV Vaccine (1 - 1-dose 60+ series) RSV Vaccine (1 - 1-dose 60+ series) [facility] Comment on above: Postponed from 2007 (Declined at t his time) Start: 09-07-2024 RSV Vaccine (1 - 1-dose 75+ series) RSV Vaccine (1 - 1-dose 75+ series) [facility] Comment on above: Postponed from 08/30/2022 (Declined at t his time) Start: 09-07-2024 Screening for malignant neoplasm of lung Lung Cancer Screening [facility] Comment on above: Postponed from 03/29/2023 (Postponed To Appropriate Date) Start: 09-04-2024 Bacteria identified in Urine by Culture Urine Culture [facility] Start: 09-04-2024 [facility] Start: 09-04-2024 [facility] Start: 07-01-2024 End: 07-01-2024 Patient encounter procedure 07/01/2024 11:45 AM EST Office Visit Pulmonary Medicine [address] [address] Zackery Mayfield MD [address] [place] [place] [address] 9 mo f/u Pulmonary Medicine Comment on above: 9 mo f/u Start: 06-08-2024 Advance Directive Discussion Advance Directive Discussion [facility] Start: 06-08-2024 Medicare Advantage Annual Wellness Visit Medicare Advantage Annual Wellness Visit [facility] Start: 04-11-2024 End: 07-11-2024 CBC W Auto Differential panel - Blood COMPLETE BLOOD COUNT AND DIFFERENTIAL Lab Routine Anemia, unspecified type History of rectal bleeding Expected: 04/11/2024, Expires: 07/11/2024 [facility] Work Phone: Comment on above: Expected: 04/11/2024, Expires: Start: 04-11-2024 End: 07-11-2024 Magnesium [Mass/volume] in Serum or Plasma MAGNESIUM Lab Routine Hypomagnesemia Expected: 04/11/2024, Expires: 07/11/2024 [facility] Comment on above: Expected: 04/11/2024, Expires: 5 Start: 03-09-2024 End: 03-09-2024 Patient encounter procedure 03/09/2024 3:20 PM EDT Office Visit Family [facility] [address] [place] [address] Jalyn Smith MD [address] [place], [place] [id number] 6 month follow up [facility] Comment on above: 6 month follow up Start: 03-09-2024 End: 06-08-2024 Basic metabolic 2000 panel - Serum or Plasma [facility] Comment on above: Expected: 03/09/2024, Expires: 5 Start: 03-09-2024 End: 06-08-2024 CBC W Auto Differential panel - Blood [facility] Comment on above: Expected: 03/09/2024, Expires: 5 Start: 03-09-2024 End: 06-08-2024 [address] A1c in Blood [facility] Work Phone: Comment on above: Expected: 03/09/2024, Expires: Start: 03-09-2024 Hemoglobin A1c measurement HbA1C [facility] Start: 03-09-2024 End: 06-08-2024 Iron and Iron binding capacity panel - Serum or Plasma [facility] Comment on above: Expected: 03/09/2024, Expires: 5 Start: 03-09-2024 End: 06-08-2024 Magnesium [Mass/volume] in Serum or Plasma [facility] Comment on above: Expected: 03/09/2024, Expires: 5 Start: 02-07-2024 Covid-19 Vaccine () Covid-19 Vaccine () [facility] Start: 02-07-2024 Covid-19 Vaccine ( season) Covid-19 Vaccine () [facility] Start: 02-07-2024 Influenza vaccination [facility] Start: 01-20-2024 BP CONTROLLED (<130/80) BP CONTROLLED (<130/80) [facility] Start: 01-13-2024 ANNUAL PCP TEAM CHRONIC DISEASE VISIT ANNUAL PCP TEAM CHRONIC DISEASE VISIT [facility] Start: 01-13-2024 BP CONTROLLED (<130/80) BP CONTROLLED (<130/80) [facility] Start: 01-06-2024 End: 01-06-2024 Patient encounter procedure 01/06/2024 11:30 AM EDT Office Visit Pulmonary Medicine [address] [place], [place] [id number] Juhi Nolasco PA-C [address], [place] [id number] 3 mo fu Pulmonary Medicine Comment on above: 3 mo fu Start: 12-11-2023 ANNUAL PCP TEAM CHRONIC DISEASE VISIT ANNUAL PCP TEAM CHRONIC DISEASE VISIT [facility] Start: 12-11-2023 BP CONTROLLED (<130/80) BP CONTROLLED (<130/80) [facility] Start: 11-05-2023 End: 11-05-2023 Patient encounter procedure 11/05/2023 10:30 AM EDT Office Visit Vascular Surgery [address] [address] Yaniv Todd MD [address] 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] Start: 10-02-2023 ANNUAL PCP TEAM CHRONIC DISEASE VISIT ANNUAL PCP TEAM CHRONIC DISEASE VISIT [facility] Start: 10-02-2023 BP CONTROLLED (<130/80) BP CONTROLLED (<130/80) [facility] Start: 10-02-2023 SHINGRIX VACCINE (1 of 2) SHINGRIX VACCINE (1 of 2) [facility] Comment on above: Postponed from 08/30/1997 (Declined at t his time) Start: 09-24-2023 End: 12-24-2023 Urinalysis complete panel - Urine URINALYSIS, WITH MICROSCOPIC Lab Routine Microscopic hematuria Expected: 09/24/2023, Expires: 12/24/2023 [facility] Work Phone: Comment on above: Expected: 09/24/2023, Expires: Start: 09-09-2023 End: 12-09-2023 Basic metabolic 2000 panel - Serum or Plasma BASIC METABOLIC PNL Lab Routine Renal insufficiency Anemia, unspecified type Expected: 09/09/2023, Expires: 12/09/2023 [facility] Work Phone: Comment on above: Expected: 09/09/2023, Expires: Start: 09-09-2023 End: 12-09-2023 CBC W Auto Differential panel - Blood CBC + DIFF Lab Routine Renal insufficiency Anemia, unspecified type Expected: 09/09/2023, Expires: 12/09/2023 [facility] Work Phone: Comment on above: Expected: 09/09/2023, Expires: Start: 09-09-2023 End: 12-09-2023 Ferritin [Mass/volume] in Serum or Plasma FERRITIN BLD Lab Routine Renal insufficiency Anemia, unspecified type Expected: 09/09/2023, Expires: 12/09/2023 [facility] Work Phone: Comment on above: Expected: 09/09/2023, Expires: Start: 09-09-2023 End: 12-09-2023 Iron and Iron binding capacity panel - Serum or Plasma IRON + TIBC Lab Routine Renal insufficiency Anemia, unspecified type Expected: 09/09/2023, Expires: 12/09/2023 [facility] Work Phone: Comment on above: Expected: 09/09/2023, Expires: Start: 09-09-2023 End: 12-09-2023 Urinalysis complete panel - Urine URINALYSIS, WITH MICROSCOPIC Lab Routine Renal insufficiency Anemia, unspecified type Expected: 09/09/2023, Expires: 12/09/2023 [facility] Work Phone: Comment on above: Expected: 09/09/2023, Expires: Start: 08-28-2023 [facility] Start: 07-17-2023 ANNUAL PCP TEAM CHRONIC DISEASE VISIT ANNUAL PCP TEAM CHRONIC DISEASE VISIT [facility] Start: 06-08-2023 Advance Directive Discussion Advance Directive Discussion [facility] Start: 04-18-2023 Glaucoma screening Dilated Retinal Exam [facility] Start: 04-18-2023 Hepatitis C antibody, confirmatory test DILATED RETINAL EXAM [facility] Start: 04-02-2023 Hemoglobin A1c measurement HbA1C [facility] Start: 04-02-2023 Hemoglobin A1c/Hemoglobin.total in Blood HBA1C [facility] Start: 03-29-2023 Influenza vaccination LUNG CANCER SCREENING [facility] Start: 03-29-2023 Screening for malignant neoplasm of lung Lung Cancer Screening [facility] Start: 03-20-2023 3 comp foot exam completed DIABETIC FOOT EXAM [facility] Start: 03-20-2023 ANNUAL PCP TEAM CHRONIC DISEASE VISIT ANNUAL PCP TEAM CHRONIC DISEASE VISIT [facility] Start: 03-20-2023 BP CONTROLLED (<130/80) BP CONTROLLED (<130/80) [facility] Start: 03-20-2023 Diabetic foot examination Diabetic Foot Exam [facility] Start: 03-20-2023 Hepatitis B screening URINE ALBUMIN:CREATININE RATIO [facility] Start: 03-20-2023 Hepatitis B surface antibody level LDL CHOLESTEROL [facility] Start: 02-18-2023 Procedure [facility] Start: 02-06-2023 Covid-19 Vaccine () Covid-19 Vaccine () [facility] Start: 02-06-2023 Influenza vaccination [facility] Start: 01-14-2023 End: 03-16-2023 CBC W Auto Differential panel - Blood CBC + DIFF Lab Routine Anemia, unspecified type Expected: 01/14/2023, Expires: 03/16/2023 [facility] Work Phone: Comment on above: Expected: 01/14/2023, Expires: 3 Start: 01-12-2023 End: 03-14-2023 Bacteria identified in Urine by Culture [facility] Work Phone: Comment on above: Expected: 01/12/2023, Expires: Start: 01-12-2023 End: 03-14-2023 Basic metabolic 2000 panel - Serum or Plasma [facility] Work Phone: Comment on above: Expected: 01/12/2023, Expires: Start: 01-12-2023 End: 03-14-2023 Urinalysis complete panel - Urine [facility] Work Phone: Comment on above: Expected: 01/12/2023, Expires: Start: 01-02-2023 Patient discharge [facility] Start: 01-01-2023 Development of care plan [facility] Start: 12-30-2022 Referral to service [facility] Start: 12-29-2022 [facility] Start: 12-22-2022 Palliative care [facility] Start: 12-21-2022 Inhalation therapy procedure [facility] Start: 12-16-2022 Development of care plan [facility] Start: 12-16-2022 Developing a treatment plan [facility] Start: 12-15-2022 Wound care [facility] Start: 12-15-2022 Oxygen therapy [facility] Start: 12-15-2022 Admission procedure [facility] Start: 12-15-2022 Measuring intake and output [facility] Start: 12-15-2022 Patient referral to dietitian [facility] Start: 12-15-2022 Referral to occupational therapist [facility] Start: 12-15-2022 Referral to service [facility] Start: 12-15-2022 Vital signs measurements [facility] Start: 12-15-2022 [facility] Start: 12-15-2022 Patient discharge [facility] Start: 12-14-2022 Incentive spirometry [facility] Start: 12-14-2022 [facility] Start: 12-12-2022 Following clinical pathway protocol [facility] Start: 12-11-2022 Admission procedure [facility] Start: 12-11-2022 Consultation for treatment [facility] Start: 12-11-2022 Application of intermittent pneumatic compression device [facility] Start: 12-10-2022 Assessment of risk of venous thromboembolism [facility] Start: 12-10-2022 Insertion of catheter into peripheral vein [facility] Start: 12-10-2022 Oxygen therapy [facility] Start: 12-10-2022 Providing care according to standard [facility] Start: 12-10-2022 Provision of activity privileges [facility] Start: 12-10-2022 Referral to occupational therapist [facility] Start: 12-10-2022 Referral to service [facility] Start: 12-10-2022 Wound care [facility] Start: 12-10-2022 [facility] Start: 12-10-2022 Verification routine [facility] Start: 12-10-2022 [facility] Start: 12-10-2022 Bacteria identified in Urine by Culture Urine Culture [facility] Start: 10-01-2022 End: 12-01-[address]22 [address] A[address]c in Blood [facility] Work Phone: Comment on above: Expected: 10/01/2022, Expires: 3 Start: 09-18-2022 ANNUAL PCP TEAM CHRONIC DISEASE VISIT ANNUAL PCP TEAM CHRONIC DISEASE VISIT [facility] Start: 09-18-2022 BP CONTROLLED (<130/80) BP CONTROLLED (<130/80) [facility] Start: 09-18-2022 Hemoglobin A1c/Hemoglobin.total in Blood HBA1C [facility] Start: 09-13-2022 ANNUAL PCP TEAM CHRONIC DISEASE VISIT ANNUAL PCP TEAM CHRONIC DISEASE VISIT [facility] Start: 09-10-2022 ANNUAL PCP TEAM CHRONIC DISEASE VISIT ANNUAL PCP TEAM CHRONIC DISEASE VISIT [facility] Start: 08-16-2022 ANNUAL PCP TEAM CHRONIC DISEASE VISIT ANNUAL PCP TEAM CHRONIC DISEASE VISIT [facility] Start: 07-21-2022 COVID-19 VACCINE (5 - Moderna series) COVID-19 VACCINE (5 - Moderna series) [facility] Start: 06-08-2022 ADVANCE DIRECTIVE DISCUSSION ADVANCE DIRECTIVE DISCUSSION [facility] Start: 03-28-2022 Hemoglobin A1c/Hemoglobin.total in Blood HBA1C [facility] Start: 03-26-2022 COLORECTAL CANCER SCREENING COLORECTAL CANCER SCREENING [facility] Start: 03-20-2022 End: 05-20-2022 ALBUMIN/CREAT RATIO RND UR [facility] Work Phone: Comment on above: Expected: 03/20/2022, Expires: 2 Start: 03-20-2022 End: 03-20-2023 CBC W Auto Differential panel - Blood [facility] Work Phone: Comment on above: Expected: 03/20/2022, Expires: 3 Start: 03-20-2022 End: 03-20-2023 Comprehensive metabolic 2000 panel - Serum or Plasma [facility] Work Phone: Comment on above: Expected: 03/20/2022, Expires: 3 Start: 03-20-2022 End: 05-20-2022 CREATININE BLD CREATININE BLD Lab Routine 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, abdominal (HCC) Expected: 03/20/2022, Expires: 05/20/2022 [facility] Work Phone: Comment on above: Expected: 03/20/2022, Expires: 2 Start: 03-20-2022 End: 05-20-2022 Hemoglobin A1c in Blood [facility] Work Phone: Comment on above: Expected: 03/20/2022, Expires: 2 Start: 03-20-2022 End: 03-20-2023 Lipid 1996 panel - Serum or Plasma [facility] Work Phone: Comment on above: Expected: 03/20/2022, Expires: 3 Start: 02-06-2022 Influenza vaccination [facility] Start: 11-27-2021 COVID-19 VACCINE (4 - Booster for Moderna series) COVID-19 VACCINE (4 - Booster for Moderna series) [facility] Start: 09-24-2021 COVID-19 VACCINE (4 - Booster for Moderna series) COVID-19 VACCINE (4 - Booster for Moderna series) [facility] Start: 09-11-2021 End: 11-11-2021 ALBUMIN/CREAT RATIO RND UR ALBUMIN/CREAT RATIO RND UR Lab Routine Type 2 diabetes mellitus without complication, without long-term current use of insulin (HCC) Expected: 09/11/2021, Expires: 11/11/2021 [facility] Work Phone: Comment on above: Expected: 09/11/2021, Expires: 2 Start: 09-11-2021 End: 11-11-2021 LIPID PANEL BASIC LIPID PANEL BASIC Lab Routine Type 2 diabetes mellitus without complication, without long-term current use of insulin (HCC) Expected: 09/11/2021, Expires: 11/11/2021 [facility] Work Phone: Comment on above: Expected: 09/11/2021, Expires: 2 Start: 08-30-2021 Smpl repair scalp/neck/ax/genit/trun k 2.6-7.5cm RPR S/N/AX/GEN/TRNK2.6-7.5CM [facility] Work Phone: Start: 08-20-2021 3 comp foot exam completed DIABETIC FOOT EXAM [facility] Start: 08-08-2021 Hepatitis B screening URINE ALBUMIN:CREATININE RATIO [facility] Start: 07-31-2021 Hepatitis B surface antibody level LDL CHOLESTEROL [facility] Start: 06-08-2021 ADVANCE DIRECTIVE DISCUSSION ADVANCE DIRECTIVE DISCUSSION [facility] Start: 01-28-2021 Hemoglobin A1c/Hemoglobin.total in Blood HBA1C [facility] Start: 06-29-2020 COLORECTAL CANCER SCREENING COLORECTAL CANCER SCREENING [facility] Start: 06-29-2020 FECAL OCCULT BLOOD FECAL OCCULT BLOOD [facility] Start: 06-29-2020 Screening for malignant neoplasm of colon Fecal Occult Blood [facility] Start: 01-05-2020 Mammography MAMMOGRAM [facility] Start: 2007 Hepatitis B Vaccine (1 of 3 - Risk 3-dose series) Hepatitis B Vaccine (1 of 3 - Risk 3-dose series) [facility] Start: 2007 RSV Vaccine (1 - 1-dose 60+ series) RSV Vaccine (1 - 1-dose 60+ series) [facility] Start: 08-30-1997 Influenza vaccination LUNG CANCER SCREENING [facility] Start: 08-30-1997 SHINGRIX VACCINE (1 of 2) SHINGRIX VACCINE (1 of 2) [facility] Start: 08-30-1992 COLOGUARD (FIT-DNA) COLOGUARD (FIT-DNA) [facility] Start: 08-30-1992 Colonoscopy COLONOSCOPY [facility] Start: 08-30-[address] COLONOGRAPHY [facility] Start: 08-30-1992 Screening for malignant neoplasm of colon [facility] Start: 08-30-1992 SIGMOIDOSCOPY SIGMOIDOSCOPY [facility] Start: 08-30-1977 Zoledronic acid therapy ALPHA-1 ANTITRYPSIN DEFICIENCY SCREENING [facility] Start: 08-30-1965 Anxiety Screening Anxiety Screening [facility] Start: 08-30-1965 BP CONTROLLED (<130/80) BP CONTROLLED (<130/80) [facility] Start: 08-30-1965 HEPATITIS C SCREENING HEPATITIS C SCREENING [facility] Start: 08-30-1965 Hepatitis C screening Hepatitis C Screening [facility] Start: 08-30-1957 Hepatitis C antibody, confirmatory test DILATED RETINAL EXAM [facility] Clostridioides diffi cile toxin genes [Presence] in Stool by MONCHO with probe detection C. DIFFICILE PCR Lab Routine Diarrhea, unspecified type Ordered: 01/12/2023 [facility] Work Phone: Comment on above: Ordered: 01/12/2023 COLOGUARD COLOGUARD Lab Ro utine Screen for colon cancer Ordered: 03/20/2022 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 Work Phone: Comment on above: 1 Occurrences starting 03/20/2022 until 04/19/2023 End: 04-19-2023 Ct angiography chest w/contrast/noncontrast CTA CHEST (NONGATED) W IVCON Radiology Routine 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, abdominal (HCC) 1 Occurrences starting 03/20/2022 until 04/19/2023 [facility] Work Phone: Comment on above: 1 Occurrences starting 03/20/2022 until 04/19/2023 End: 10-20-2024 CTA Abdominal vessels and Pelvis vessels W contrast IV CTA ABD/PEL W IVCON Radiology Routine Abdominal aortic aneurysm (AAA) without rupture, unspecified part (HCC) Dissection of thoracoabdominal aorta (HCC) 1 Occurrences starting 09/21/2023 until 10/20/2024 [facility] Work Phone: Comment on above: 1 Occurrences starting 09/21/2023 until 10/20/2024 End: 10-20-2024 CTA Chest vessels WO and W contrast IV CTA CHEST (NONGATED) WO/W IVCON Radiology Routine Thoracic aortic aneurysm without rupture, unspecified part (HCC) Dissection of descending aorta (HCC) 1 Occurrences starting 09/21/2023 until 10/20/2024 [facility] Work Phone: Comment on above: 1 Occurrences starting 09/21/2023 until 10/20/2024 ENTERIC BACTERIAL PA IVAN BY PCR ENTERIC BACTERIAL PANEL BY PCR Lab Routine Diarrhea, unspecified type Ordered: 01/12/2023 [facility] Work Phone: Comment on above: Ordered: 01/12/2023 FECAL LACTOFERRIN/LEUKOCYTES FECAL LACTOFERRIN/LEUKOCYTES Lab Routine Diarrhea, unspecified type Ordered: 01/12/2023 [facility] Work Phone: Comment on above: Ordered: 01/12/2023 Giardia lamblia+Cryptosporidium sp Ag [Presence] in Stool by Immunoassay CRYPTOSPORIDIUM AND GIARDIA ANTIGENS BY EIA Microbiology Routine Diarrhea, unspecified type Ordered: 01/12/2023 [facility] Work Phone: Comment on above: Ordered: 01/12/2023 End: 09-05-2023 KALI SCREENING KALI SCREENING Radiology Routine Encounter for screening mammogram for breast cancer 1 Occurrences starting 08/06/2022 until 09/05/2023 [facility] Work Phone: Comment on above: 1 Occurrences starting 08/06/2022 until 09/05/2023 Microscopic urinalysis [facility] Organism count, microscopic method [facility] End: 10-09-2024 OXIMETRY WITH AMBULATION OXIMETRY WITH AMBULATION PFT Routine Hypoxemia 1 Occurrences starting 09/10/2023 until 10/09/2024 [facility] Work Phone: Comment on above: 1 Occurrences starting 09/10/2023 until 10/09/2024 End: 02-15-2026 OXIMETRY WITH AMBULATION OXIMETRY WITH AMBULATION PFT Routine Acute and chronic respiratory failure with hypoxia (HCC) 1 Occurrences starting 01/16/2025 until 02/15/2026 [facility] Work Phone: Comment on above: 1 Occurrences starting 01/16/2025 until 02/15/2026 Patient Education [facility] Work Phone: Patient referral [facility] Work Phone: Urine culture [facility] Urine microscopy: epithelial cells [facility] Urine microscopy: re d cells [facility] White blood cell count [facility] End: 10-07-2024 XR Chest PA and Lateral XR CHEST 2V FRONTAL/LAT Radiology Routine Bacterial pneumonia 1 Occurrences starting 09/08/2023 until 10/07/2024 [facility] Work Phone: Comment on above: 1 Occurrences starting 09/08/2023 until 10/07/2024 XR Chest PA and Lateral XR CHEST 2V FRONTAL/LAT Radiology Routine Bacterial pneumonia 09/08/2023 3:[address] [facility] Work Phone: End: 10-08-2024 XR Chest PA and Lateral XR CHEST 2V FRONTAL/LAT Radiology Routine Infiltrate noted on imaging study 1 Occurrences starting 09/09/2023 until 10/08/2024 [facility] Work Phone: Comment on above: 1 Occurrences starting 09/09/2023 until 10/08/2024 [facility] Immunizations Immunization Date Immunization Notes Care Provider [facility] 10-24-2024 zoster vaccine recombinant Jalyn Smith MD Work Phone: [facility] 09-07-2024 pneumococcal conjuga te (PCV20) vaccine, 20 valent (PREVNAR 20) Jalyn Smith MD Work Phone: [facility] 2024 respiratory syncytia l virus (RSV) vaccine, bivalent (ABRYSVO) Jalyn Smith MD Work Phone: [facility] 2024 zoster vaccine recombinant Jalyn Smith MD Work Phone: [facility] 03-09-2024 COVID-19 vaccine, ag e 12+ yr (iScreen Vision-[employer]ION[employer] [place] COMIRNATY) Jalyn Smith MD Work Phone: [facility] 03-09-2024 influenza, high dose seasonal, preservative-free Jalyn Smith MD Work Phone: [facility] 03-09-2024 influenza virus vacc ine, unspecified formulation Yaniv Todd MD Work Phone: [facility] 03-20-2022 COVID-19 booster vaccine, age 12+ yr, bivalent (PFIZER-BIONTECH) Jalyn Smith MD Work Phone: [facility] 03-20-2022 influenza, high-dose , quadrivalent vaccine (FLUZONE HIGH DOSE QUADRIVALENT) Jalyn Smith MD Work Phone: [facility] 03-20-2022 influenza virus vacc ine, unspecified formulation Zackery Mayfield MD Work Phone: [facility] 08-30-2021 tetanus toxoid, redu kaur diphtheria toxoid, and acellular pertussis vaccine, adsorbed NA Rodríguez PA-C Work Phone: [facility] 07-30-2021 Covid (Moderna) Dr. Jalyn Smith Work Phone: [facility] 08-02-2020 COVID-19 vaccine, fu ll dose (MODERNA) NA Rodríguez PA-C Work Phone: [facility] 07-05-2020 COVID-19 vaccine, fu ll dose (MODERNA) NA Rodríguez PA-C Work Phone: [facility] Work Phone: 06-25-2020 Covid (Moderna) Dr. Jalyn Smith Work Phone: [facility] 06-29-2019 influenza, high dose seasonal, preservative-free NA Rodríguez PA-C Work Phone: [facility] 06-19-2016 influenza, high dose seasonal, preservative-free NA Rodríguez PA-C Work Phone: [facility] 06-19-2016 pneumococcal conjuga te vaccine, 13 valent NA Rodríguez PA-C Work Phone: [facility] 03-07-2015 influenza, high dose seasonal, preservative-free NA Rodríguez PA-C Work Phone: [facility] 03-09-2014 influenza, high dose seasonal, preservative-free NA Rodríguez PA-C Work Phone: [facility] 03-09-2014 pneumococcal polysaccharide vaccine, 23 valent NA Rodríguez PA-C Work Phone: [facility] 02-25-2013 influenza virus vacc ine, unspecified formulation NA Rodríguez PA-C Work Phone: [facility] Payers Date Payer Category Payer Self-pay [id number] 2021 Medicare HUMANA MEDICARE HUMANA MEDICARE PPO [id number] 2021-Present [phone] [address] [place], [place] [address] PP [id number] 2018 Medicare [id number] 2018 Medicare (Managed Care) HUMANA BEATA [id number] 2018 Medicare [id number] Unknown [id number] Unknown [id number] Social History Date Type Detail Facility Start: 04-28-2014 End: 03-20-2022 Tobacco smoking status NHIS Ex-smoker [facility] Start: 08-30-1966 End: 01-29-2012 History of tobacco use Current smoker [facility] Start: 08-30-1966 End: 01-29-2012 History of tobacco use Cigarette Smoker [facility] Start: 08-30-2021 End: 01-06-2024 Alcohol intake Current non-drinker of alcohol (finding) [facility] Start: 08-17-2020 History SDOH Alcohol Frequency 2 [facility] Start: 08-17-2020 History SDOH Alcohol Std Drinks 1 [facility] Start: 08-17-2020 History SDOH Social Connections Phone 3 [facility] Start: 08-17-2020 History SDOH Social Connections Living 4 [facility] Start: 08-17-2020 History SDOH Financial 5 [facility] Start: 08-17-2020 Education 12 [facility] Start: 04-28-2014 End: 03-20-2022 Tobacco Comment Father smoked in childhood home. Spouse smoked briefly after marriage. [facility] Start: 1945 Sex Assigned At Female [facility] Start: 08-26-2021 End: 03-20-2022 Exposure to SARS-CoV-2 (event) Not sure [facility] Work Phone: Start: 09-26-2021 End: 08-28-2023 Tobacco smoking status COIS Unknown if ever smoked [facility] Start: 04-28-2014 End: 12-12-2024 Cigarettes smoked current (pack per day) - Reported 0.5 [facility] Start: 04-28-2014 End: 03-20-2022 Tobacco use and exposure Smokeless tobacco non-user [facility] Work Phone: Start: 08-17-2020 End: 12-12-2024 Social connection and isolation panel [facility] Do you belong to any clubs or organizations such as jainism groups, unions, fraternal or athletic groups, or school groups? No [facility] Are you now , , , , never or living with a partner? [facility] How often to you hav e a drink containing alcohol? Monthly or less [facility] How many standard dr inks containing alcohol do you have on a typical day? 1 or 2 [facility] How often do you hav e 6 or more drinks on 1 occasion? Less than monthly [facility] Start: 05-09-2012 How hard is it for y ou to pay for the very basics like food, housing, medical care, and heating Not hard at all [facility] Do you feel stress - tense, restless, nervous, or anxious, or unable to sleep at night because your mind is troubled all the time - these days [OSQ] Only a little [facility] (I/We) worried wheth er (my/our) food would run out before (I/we) got money to buy more. Never true [facility] Start: 07-16-2019 Gender identity Identifies as female gender (finding) [facility] How often do you hav e 6 or more drinks on 1 occasion? Never [facility] Do you feel stress - tense, restless, nervous, or anxious, or unable to sleep at night because your mind is troubled all the time - these days [OSQ] To some extent [facility] Start: 08-15-2024 End: 09-04-2024 Sex Female (finding) [facility] Medical Equipment Procedure Code Equipment Code Equipment Origin al Text Equipment Identifier Dates Test blood sugar(s) 2 times daily. Dx: Type 2 DM - Controlled E11.9 Insulin: No [id number], [id number] Start: 08-16-2021 Comment on above: Test blood [...] 0 09/01/19 25 3:53 PM EDT UserYumiko [facility] 2024 Within the last year , have you been humiliated or emotionally abused in other ways by your partner or ex-partner? No 2024 3:53 PM EDT User, Retat No [facility] 2024 Within the last year , have you been afraid of your partner or ex-partner? No 2024 3:53 PM EDT User, Retat No [facility] 2024 Within the last year , have you been raped or forced to have any kind of sexual activity by your partner or ex-partner? No 2024 3:53 PM EDT User, Retat No [facility] 2024 Within the last year , have you been kicked, hit, slapped, or otherwise physically hurt by your partner or ex-partner? No 2024 3:53 PM EDT User, Retat No [facility] 2024 How often to you hav e a drink containing alcohol? Never 2024 3:53 PM EDT User, Mychart Never [facility] 2024 Functional status Patient does n ot drink 2024 3:53 PM EDT User, Retat Patient does not drink [facility] 2024 How often do you hav e 6 or more drinks on 1 occasion? Never 2024 3:53 PM EDT User, Rosamariahart Never [facility] 01-02-2023 Functional status Chair [facility] Work Phone: 12-15-2022 Functional status Ambulates [facility] Work Phone: 08-09-2021 Functional status Activity Abili ty With Assist of 1 [facility] Work Phone: 08-08-2021 Functional status Ambulates [facility] Work Phone: 07-25-2021 Functional status Bedrest [facility] Work Phone: 12-30-2018 Are you deaf, or do you have serious difficulty hearing No 12/30/2018 5:00 PM EDT Gonzalez Chauhan (Rn), RN No [facility] 12-30-2018 Are you blind, or do you have serious difficulty seeing, even when wearing glasses No 12/30/2018 5:00 PM EDT Gonzalez Chauhan (Rn), RN No [facility] 12-30-2018 Do you have serious difficulty walking or climbing stairs Yes 12/30/2018 5:00 PM EDT Gonzalez Chauhan (Rn), RN Yes [facility] 12-30-2018 Do you have difficul ty dressing or bathing Yes 12/30/2018 5:00 PM EDT Gonzalez Chauhan (Rn), RN Yes [facility] 12-30-2018 Because of a physica l, mental, or emotional condition, do you have difficulty doing errands alone such as visiting a physician's office or shopping Yes 12/30/2018 5:00 PM EDT Gonzalez Chauhan (Rn), RN Yes [facility] Mental Status Date Assessment Result Facility 01-02-2023 Cognitive function Voice/Name [facility] Work Phone: 01-01-2023 Cognitive function Appropriate;Cooperativ e [facility] Work Phone: 12-15-2022 Cognitive function Voice/Name [facility] Work Phone: 12-10-2022 Cognitive function Level Of Cons ciousness Awake;Alert;Appropriate [facility] Work Phone: 08-09-2021 Cognitive function Voice/Name [facility] Work Phone: 07-25-2021 Cognitive function Voice/Name [facility] Work Phone: 12-30-2018 Because of a physica l, mental, or emotional condition, do you have serious difficulty concentrating, remembering, or making decisions Yes 12/30/2018 5:00 PM EDT Gonzalez Chauhan (Rn), RN Yes [facility] Clinical Notes 02-09-2019 to 03-22-2025 Telephone Encounter - Casandra Rasheed MA - 01/30/2025 3:17 PM EDTTelephone Encounter - Casandra Rasheed MA - 01/30/2025 3:17 PM EDTBaranestuardo Juhi Greene - 01/20/2025 9:52 AM EDT Note Date & Type Note Facility 03-22-2025 Note HNO ID: [id number] Author: KAREN VARGAS RPFT Service: ? Author [...] March 22, 2025 TIME: 2:59 PM OXIMETRY [facility] 03-22-2025 Note HNO ID: [id number] Author: JALYN SMITH MD Service: ? Author [...] PCP - General (Family Medicine) Marjan Reid APRN.KILN STOKER as Computer Security Manager (Family Medicine) Casandra Kinsey APRN.CNP as Computer Security Manager (Family Medicine) Dr Tompkins, optometry and Dr. [...] BiPAP for sleep. - Denies seeing a ore smelter. - Denies changes in bowel habits, hematochezia, [...] pain, (-) fall (more content not included)... [facility] 03-22-2025 Note HNO ID: [id number] Author: ?, ?, ? Service: ? Author [...] Contacted: Unable or unnecessary to reach patient: [employer] message sent HCC related Updated appointment notes Navigation Signature: Juhi Sudheer Greene March 22, 2025 8:15 AM [facility] 03-22-2025 Note Patient Outreach (YESENIA TNAV) KANDI CORREIA ([id number]) 1945 F Date Time Provider Department 03/22/25 [...] Contacted: Unable or unnecessary to reach patient: [employer] message sent HCC related Updated appointment notes Navigation Signature: Juhi Sudheer [facility] March 22, 2025 8:15 AM Allergies As of Date: 03/22/2025 Noted Allergy Reaction LISINOPRIL 12/26/2016 14 - Other: See Comments Comments: cough LYRICA (PREGABALIN) 01/13/2019 7 - Swelling Date Reviewed: 03/08/2025 Reviewed by: Oral Perdue APRN.KILN STOKER - Fully Assessed Reason for Visit: Population Health Navigation Outreach [3910] Cmt: [facility] Prescriptions as of 03/22/2025 - metoprolol [...] two times a day with meals. 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 [facility] 03-08-2025 Note HNO ID: [id number] Author: ORAL PERDUE APRN.KILN STOKER Service: ? 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) 11/05/2023 Aneurysm, thoracic aortic ([facility]) Arthritis Centrilobular emphysema ([facility]) 10/01/2022 Chronic pain Chronic respiratory failure with hypoxia ([facility]) 05/24/2019 Chronic venous stasis dermatitis COPD (chronic obstructive pulmonary disease) ([facility]) Degenerative disc disease Depression Descending thoracic aortic [...] 160-9-4.8 mcg/actuation HFA aerosol inhaler Generic drug: zrgzkcabfl-wueckbxs-zjfqxyscua Inhale 2 puffs as instructed two times [...] 50 mg ta (more content not included)... [facility] 01-30-2025 Telephone encounter Note NOV none [...] notify patient. Please review. Casandra Rasheed MA [facility] 01-30-2025 Miscellaneous Notes NOV none JERRELL 01/06/24 [...] Casandra Rasheed MA documented in this encounter [facility] 01-25-2025 Telephone encounter Note Mailed as requested. [facility] 01-25-2025 Miscellaneous Notes Mailed as requested. done Type of form: AEP confirming she has medical equipment in case of power outage Form received via walk in When form is completed, Mail form to envelope provider Form has been forwarded to Physician Desk: Dr. Smith Still a few questions on form to answer. Kalpana Sharif LPN documented in this encounter [facility] 01-24-2025 Telephone encounter Note done [facility] 01-24-2025 Telephone encounter Note Type of form: AEP confirming she has medical equipment in case of power outage Form received via walk in When form is completed, Mail form to envelope provider Form has been forwarded to Physician Desk: Dr. Smith Still a few questions on form to answer. Kalpana Sharif LPN [facility] 01-20-2025 Note HNO ID: [id number] Author: ?, ?, ? Service: ? Author Type: ? Type: Progress Notes Filed: 01/20/2025 09:55 Note Text: POPULATION HEALTH NAVIGATION OUTREACH Action/FYI Patient outreach for HCCs HM due; KED Lvm and sent mcm Reason for Outreach Care Gap/HCC or Scheduling Wellness Visits Care Gaps due: KED Patient Contacted: Unable or unnecessary to reach patient: Left message Kakao Corphart message sent HCC related Navigation Signature: Juhi Sudheer Greene January 20, 2025 9:52 AM [facility] 01-20-2025 History of Present illness Narrative POPULATION HEALTH NAVIGATION OUTREACH Action/FYI Patient outreach for HCCs HM due; KED Lvm and sent mcm Reason for Outreach Care Gap/HCC or Scheduling Wellness Visits Care Gaps due: KED Patient Contacted: Unable or unnecessary to reach patient: Left message Kakao Corphart message sent HCC related Navigation Signature: Juhi Greene January 20, 2025 9:52 AM documented in this encounter [facility] 01-20-2025 Note Patient Outreach (NE TNAV) KANDI CORREIA ([id number]) 1945 F Date Time Provider Department 01/20/25 [...] or unnecessary to reach patient: Left message [employer] message sent HCC related Navigation Signature: Juhi [...] two times a day with meals. - llpegjebkf-pjnejqdk-bfwiglbqmk (BREZTRI AEROSPHERE) 160-9-4.8 mcg/actuation HFA aerosol inhaler [...] this patient by: PATIENT Maria Alejandra Nolan (Professor Of Biochemistry) Problem List As Of Date 01/20/2025 Noted [...] Encounter Status:Closed by JUHI VILLATORO on 01/20/25 [facility] 01-09-2025 Telephone encounter Note Faxed back as requested. [facility] 01-09-2025 Miscellaneous Notes Faxed back as requested. [...] the procedure. Karson requests call back at [phone]. Francoise Grady RN documented in this encounter [facility] 01-09-2025 Telephone encounter Note done [facility] 01-09-2025 Telephone encounter Note On desk for review. [facility] 01-09-2025 Telephone encounter Note Notified daughter. She will have Dr Harman's office send form. [facility] 01-09-2025 Telephone encounter Note I should be able to [facility] 01-09-2025 Telephone encounter Note Daughter (Karson) calls [...] the procedure. Karson requests call back at [phone]. Francoise Grady RN [facility] 12-21-2024 Note HNO ID: [id number] Author: ?, ?, ? Service: ? Author Type: ? Type: Progress Notes Filed: 12/21/2024 10:12 Note Text: POPULATION HEALTH NAVIGATION OUTREACH Action/FYI Patient outreach for HCCs HM due; KED (cmp) Reason for Outreach Care Gap/HCC or Scheduling Wellness Visits Care Gaps due: KED Patient Contacted: Unable or unnecessary to reach patient: Left message [employer] message sent HCC related Navigation Signature: Juhi Willard Pss December 21, 2024 10:10 AM [facility] 12-21-2024 History of Present illness Narrative POPULATION HEALTH NAVIGATION OUTREACH Action/FYI Patient outreach for HCCs HM due; KED (cmp) Reason for Outreach Care Gap/HCC or Scheduling Wellness Visits Care Gaps due: KED Patient Contacted: Unable or unnecessary to reach patient: Left message Kakao Corphart message sent HCC related Navigation Signature: Juhioswald Greene December 21, 2024 10:10 AM documented in this encounter [facility] 12-21-2024 Note Patient Outreach (YESENIA CARABALLOAV) KANDI CORREIA ([id number]) 1945 F Date Time Provider Department 12/21/24 JALYN SMITH During your visit today, we recorded the following information about you: Juhi Villatoro 12/21/2024 10:12 AM Signed POPULATION HEALTH NAVIGATION OUTREACH Action/FYI Patient outreach for HCCs HM due; COLETTE ([facility]) Reason for Outreach Care Gap/HCC or Scheduling Wellness Visits Care Gaps due: KED Patient Contacted: Unable or unnecessary to reach patient: Left message [facility] message sent HCC related Navigation Signature: Juhi Greene December 21, 2024 10:10 AM Allergies As of Date: 12/21/2024 Noted Allergy Reaction LISINOPRIL 12/26/2016 14 - Other: See Comments Comments: cough LYRICA (PREGABALIN) 01/13/2019 7 - Swelling Date Reviewed: 09/07/2024 Reviewed by: Kalpana Sharif LPN - Fully Assessed Reason for Visit: Population Health Navigation Outreach [3910] Cmt: Ann Dotson Prescriptions as of 12/21/2024 - hgxwpdruqk-loinyfrt-odfjcegvvo (BREZTRI AEROSPHERE) 160-9-4.8 mcg/actuation HFA aerosol inhaler [...] this patient by: PATIENT Maria Alejandra Nolan (Professor Of Biochemistry) Problem List As Of Date 12/21/2024 Noted [...] Encounter Status:Closed by JUHI VILLATORO on 12/21/24 [facility] 12-15-2024 Telephone encounter Note Clearance forms signed and faxed to Hemal Marie at [phone]. Transmission complete. Encounter closed, [facility] 12-15-2024 Miscellaneous Notes Clearance forms signed and faxed to Hemal Marie at [phone]. Transmission complete. Encounter closed, documented in this encounter [facility] 12-02-2024 History of Present illness Narrative Radiology [...] PATIENT PRESENTS WITH AN IMPLANTABLE OR ATTACHED MENTAL HEALTH WORKER: No RADIOLOGY DEPARTMENT: CT; Exam(s) Completed: CTA Abdomen Pelvis PERIPHERAL IV DATA: Site assessment: Clean,Dry and Intact, Site disposition Discontinued SIGNED BY: RT Venice(R) December 02, 2024 1:49 PM documented in this encounter [facility] 12-02-2024 Note HNO ID: [id number] Author: ROLF GUZMAN RT(Martin) Service: Radiology Author [...] PATIENT PRESENTS WITH AN IMPLANTABLE OR ATTACHED MENTAL HEALTH WORKER: No RADIOLOGY DEPARTMENT: CT; Exam(s) Completed: CTA Abdomen Pelvis PERIPHERAL IV DATA: Site assessment: Clean,Dry and Intact, Site disposition Discontinued SIGNED BY: RT Venice(R) December 02, 2024 1:49 PM [facility] 12-02-2024 Nurse Note Radiology Service Progress Note [...] DATE: December 02, 2024 TIME: 1:36 PM [facility] 12-02-2024 Nurse Note Radiology Service Progress Note [...] TIME: 1:36 PM documented in this encounter [facility] 11-30-2024 Telephone encounter Note RX pended for mail order. JERRELL 01/06/24 [facility] 11-30-2024 Miscellaneous Notes RX pended for mail order. JERRELL 01/06/24 documented in this encounter [facility] 11-28-2024 Telephone encounter Note The breztri was being ordered by pulmonology. [facility] 11-28-2024 Miscellaneous Notes The breztri was being ordered by pulmonology. documented in this encounter [facility] 11-24-2024 Note HNO ID: [id number] Author: ?, ?, ? Service: ? Author [...] Sudheer Greene November 24, 2024 12:50 PM [facility] 11-21-2024 Note HNO ID: [id number] Author: ?, ?, ? Service: ? Author [...] Juhi Greene November 21, 2024 10:28 AM [facility] 11-21-2024 History of Present illness Narrative [...] 2024 10:28 AM documented in this encounter [facility] 11-21-2024 Note Patient Outreach (NE TNAV) KANDI CORREIA ([id number]) 1945 F Date Time Provider Department 11/21/24 [...] Updated appointment notes Navigation Signature: Juhi Willard [facility] November 21, 2024 10:28 AM Juhi Villatoro 11/24/2024 12:50 PM Signed POPULATION HEALTH NAVIGATION OUTREACH Action/FYI Patient returned myc message. Abraham sent back message to help schedule KED. Reason for Outreach Returned Call/MyChart Patient Contacted: Spoke to patient/parent/or legal guardian Patient identified by name and date of : Yes Returned call/MyChart actions taken: MyChart message sent Navigation Signature: Juhi Willard [facility] November 24, 2024 12:50 PM Allergies As [...] 1 tablet by mouth once daily. 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 [facility] 11-04-2024 Telephone encounter Note Called patient and discussed. She is going to contact office to see if maybe can follow up as a VV after CT scan. [facility] 11-04-2024 Miscellaneous Notes Called patient and discussed. She is going to contact office to see if maybe can follow up as a VV after CT scan. documented in this encounter [facility] 11-01-2024 Telephone encounter Note Please see pt message Jojo Shah MA [facility] 11-01-2024 Miscellaneous Notes Please see pt message Jojo Shah MA documented in this encounter [facility] 10-18-2024 Telephone encounter Note See pt message. Rx for Requip [facility], not [facility]. Rx pending with correct pharmacy. Aj Hermosillo LPN [facility] 10-18-2024 Miscellaneous Notes See pt message. Rx for Requip went to [facility], not [facility]. Rx pending with correct pharmacy. Aj Hermosillo LPN documented in this encounter [facility] 10-10-2024 Note HNO ID: [id number] Author: KATHERINE GÓMEZ RN Service: ? Author [...] Gómez RN October 10, 2024 12:26 PM [facility] 10-10-2024 History of Present illness Narrative [...] 2024 12:26 PM documented in this encounter [facility] 10-10-2024 Note Patient Outreach (AM BC) KANDI CORREIA ([id number]) 1945 F Date Time Provider Department 10/10/24 KATHERINE GÓMEZ [facility] During your visit today, we recorded the [...] LPN - Fully Assessed Reason for Visit: Damper Worker- Other [3613] Prescriptions as of 10/10/2024 - [...] 1 tablet by mouth once daily. - qpfiorrhgb-usrbjneq-uwdywizfxf (BREZTRI AEROSPHERE) 160-9-4.8 mcg/actuation HFA aerosol inhaler [...] this patient by: PATIENT Maria Alejandra Nolan (Professor Of Biochemistry) Problem List As Of Date 10/10/2024 Noted [...] Status:Closed by KATHERINE GÓMEZ RN on 10/10/24 [facility] 10-05-2024 Telephone encounter Note See [employer] message. Natalie Gonzalez MA [facility] 10-05-2024 Miscellaneous Notes See [employer] message. Natalie Gonzalez MA documented in this encounter [facility] 10-03-2024 Telephone encounter Note Prescription Refill Information [...] Hermosillo LPN October 03, 2024 6:24 PM [facility] 10-03-2024 Miscellaneous Notes Prescription Refill Information The [...] 2024 6:24 PM documented in this encounter [facility] 10-03-2024 Telephone encounter Note Prescription Refill Information [...] Burrell LPN October 03, 2024 2:19 PM [facility] 10-03-2024 Miscellaneous Notes Prescription Refill Information The [...] 2024 2:19 PM documented in this encounter [facility] 10-03-2024 Telephone encounter Note Prescription Refill Information [...] Burrell LPN October 03, 2024 2:18 PM [facility] 10-03-2024 Miscellaneous Notes Prescription Refill Information The [...] 2024 2:18 PM documented in this encounter [facility] 09-21-2024 Telephone encounter Note Prescription Refill Information [...] Sharif LPN September 21, 2024 12:49 PM [facility] 09-21-2024 Miscellaneous Notes Prescription Refill Information The [...] 2024 12:49 PM documented in this encounter [facility] 09-07-2024 Note HNO ID: [id number] Author: JALYN SMITH MD Service: ? Author Type: Physician Type: Progress Notes Filed: 09/07/2024 15:25 Note Text: Patient presents with: 6 Month Exam ER F/U HPI: Patient presents today for office visit for follow up. HOSPITAL/ER FOLLOW UP: Reason for visit: abd pain Which facility: [facility] Date of visit: 09/05/24 Diagnosis: abd [...] Take 1 tablet by mouth once daily. bdryvbvrtq-evwwqbmr-khpymtuagu (BREZTRI AEROSPHERE) 160-9-4.8 mcg/actuation HFA aerosol inhaler [...] HISTORY Diagnosis Date AAA (abdominal aortic aneurysm) ([facility]) Abdominal aortic aneurysm (AAA) without rupture ([facility]) 09/09/2023 Aneurysm of left common iliac artery ([facility]) 11/05/2023 Aneurysm, thoracic aortic ([facility]) Arthritis Centrilobular emphysema ([facility]) 10/01/2022 Chronic pain Chronic respiratory failure with hypoxia ([facility]) 05/24/2019 Chronic venous stasis dermatitis COPD (chronic obstructive pulmonary disease) ([facility]) Degenerative disc disease Depression Descending thoracic aortic dissection ([facility]) 12/22/[address] 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 [facility] 09-07-2024 History of Present illness Narrative Patient presents with: 6 Month Exam ER F/U HPI: Patient presents today for office visit for follow up. HOSPITAL/ER FOLLOW UP: Reason for visit: abd pain Which facility: [facility] Date of visit: 09/05/24 Diagnosis: abd [...] Take 1 tablet by mouth once daily. 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 Services [address] [place] [address] Abdomen/Pelvis W IV Cont ONLY MR#: [id number] Acct: [id number] Name: KANDI CORREIA Rep #: [id number] : 1945 F 79 From: Tana Wilson MD PCP: Dr. Jalyn Smith MD Status: REG E R Study:Abdomen/Pelvis W IV Cont ONLY Date of E xam: 09/04/24 Exam# [id number] Ordering Dr: Cynthia Dozier DO PROCEDURE: ABDOMEN/PELVIS [...] for stability. 3. Mild hepatomegaly. Reading Location: [id number] CC: Dr. Viraj Dozier DO; Dr. Jalyn Smith MD ~ University Relations Director: Signed [facility] 2024 Telephone encounter Note Daughter informed. Aurelia Rose MA [facility] 2024 Miscellaneous Notes Daughter informed. Aurelia oRse MA yes Patient's daughter calls and states that patient received the Shingrix and RSV vaccination at [facility]. Pharmacy is recommending patient get a pneumonia and another COVID vaccination. Patient has appointment with pharmacy next Thursday afternoon. Daughter asking if PCP recommends this as well? Please review and advise, Susana Fisher RN documented in this encounter [facility] 2024 Telephone encounter Note yes [facility] 2024 Telephone encounter Note Patient's daughter calls and states that patient received the Shingrix and RSV vaccination at [facility]. Pharmacy is recommending patient get a pneumonia and another COVID vaccination. Patient has appointment with pharmacy next Thursday afternoon. Daughter asking if PCP recommends this as well? Please review and advise, Susana Fisher RN [facility] 08-26-2024 Note HNO ID: [id number] Author: ?, ?, ? Service: ? Author [...] Juhi Greene August 26, 2024 12:09 PM [facility] 08-25-2024 Note HNO ID: [id number] Author: ?, ?, ? Service: ? Author [...] Juhi Greene August 25, 2024 11:40 AM [facility] 08-25-2024 History of Present illness Narrative POPULATION HEALTH NAVIGATION OUTREACH Action/FYI Patient is due for Wellness check Reason for Outreach Care Gap/HCC or Scheduling Wellness Visits Care Gaps due: Medicare Annual Wellness Visit Patient Contacted: Unable or unnecessary to reach patient: MyChart message sent HCC related Updated appointment notes Navigation Signature: Juhi Greene August 25, 2024 11:40 AM documented in this encounter [facility] 08-25-2024 Note Patient Outreach (NE TNAV) TAYLORKANDI Angelita ([id number]) 1945 F Date Time Provider Department 08/25/24 JALYN SMITH During your visit today, we recorded the following information about you: Juhi Villatoro 08/25/2024 11:45 AM Signed POPULATION HEALTH NAVIGATION OUTREACH Action/FYI Patient is due for Wellness check Reason for Outreach Care Gap/HCC or Scheduling Wellness Visits Care Gaps due: Medicare Annual Wellness Visit Patient Contacted: Unable or unnecessary to reach patient: [employer] message sent HCC related Updated appointment notes Navigation Signature: Juhi Greene August 25, 2024 11:40 AM Juhi Villatoro 08/26/2024 12:10 PM Signed POPULATION HEALTH NAVIGATION OUTREACH Action/FYI Patient replied via [employer] inquiring what a wellness check is, sent mychart to patient Reason for Outreach Returned Call/MyChart Patient Contacted: Spoke to patient/parent/or legal guardian Patient identified by name and date of : Yes Returned call/MyChart actions taken: Kakao Corphart message sent Navigation Signature: Juhi Greene August 26, 2024 12:09 PM Allergies As of Date: 08/25/2024 Noted Allergy Reaction LISINOPRIL 12/26/2016 14 - Other: See Comments Comments: cough LYRICA (PREGABALIN) 01/13/2019 7 - Swelling Date Reviewed: 01/06/2024 Reviewed by: Staci Zamorano LPN - Fully Assessed Reason for Visit: Population Health Navigation Outreach [3910] Cmt: Ann Work bench [place] Prescriptions as of 08/26/2024 - oxybutynin XL [...] 1 tablet by mouth once daily. - gzxnitkndi-cwgkjdjg-huwsqrqitj (BREZTRI AEROSPHERE) 160-9-4.8 mcg/actuation HFA aerosol inhaler [...] this patient by: PATIENT Maria Alejandra Nolan (Professor Of Biochemistry) Problem List As Of Date 08/25/2024 Noted [...] of thoracoabdominal a (more content not included)... [facility] 08-03-2024 Telephone encounter Note Prescription Refill [...] 50mg #90 with 1 refill sent to [facility] on 06/09/24. Pt not due for refill. MC message to pt advising of the same. Gabapentin 100mg #270 with 1 refill sent to [facility] on 05/17/24. Pt not due for refill. MC message to pt advising of the same. Aj Hermosillo LPN August 03, 2024 2:58 PM [facility] 08-03-2024 Miscellaneous Notes Prescription Refill Information The [...] 50mg #90 with 1 refill sent to [facility] on 06/09/24. Pt not due for refill. MC message to pt advising of the same. Gabapentin 100mg #270 with 1 refill sent to [facility] on 05/17/24. Pt not due for refill. MC message to pt advising of the same. Aj Hermosillo LPN August 03, 2024 2:58 PM documented in this encounter [facility] 06-09-2024 Telephone encounter Note Prescription Refill Information [...] Holloway LPN June 09, 2024 11:45 AM [facility] 06-09-2024 Miscellaneous Notes Prescription Refill Information The [...] 2024 11:45 AM documented in this encounter [facility] 05-17-2024 Telephone encounter Note Prescription Refill Information [...] Hermosillo LPN May 17, 2024 11:24 AM [facility] 05-17-2024 Miscellaneous Notes Prescription Refill Information The [...] 2024 11:24 AM documented in this encounter [facility] 05-17-[address] [facility] 01/06/24 Patient phones requesting refills as follows: Requested Prescriptions Pending Prescriptions Disp Refills drxtgqlimb-fmdwnhlb-rgnoheulaf (BREZTRI AEROSPHERE) 160-9-4.8 mcg/actuation HFA aerosol inhaler [Pharmacy Med Name: BREZTRI AEROSPHERE INHALER] 32.1 g 3 Sig: Inhale 2 Puffs as instructed two times a day. Please review and advise. Staci Zamorano LPN [facility] 05-17-[address] [facility] 01/06/24 Patient phones requesting refills as follows: Requested Prescriptions Pending Prescriptions Disp Refills ubiybhriuu-tfxpeqeh-ziifuqhmwc (BREZTRI AEROSPHERE) 160-9-4.8 mcg/actuation HFA aerosol inhaler [Pharmacy Med Name: BREZTRI AEROSPHERE INHALER] 32.1 g 3 Sig: Inhale 2 Puffs as instructed two times a day. Please review and advise. Staci Zamorano LPN documented in this encounter [facility] 04-28-2024 Note HNO ID: [id number] Author: SELENE ANAYA RN Service: ? Author Type: Registered Nurse Type: Progress Notes Filed: 04/28/2024 15:59 Note Text: [facility] Telephonic Outreach Provider Action/FYI Contacted for: Routine Telephonic Outreach Contact made with patient: No, left message. Selene Anaya RN April 28, 2024 3:58 PM [facility] 04-28-2024 History of Present illness Narrative [facility] Telephonic Outreach Provider Action/FYI Contacted for: Routine Telephonic Outreach Contact made with patient: No, left message. Selene Anaya RN April 28, 2024 3:58 PM [facility] Telephonic Outreach Provider Action/FYI Contacted for: Routine Telephonic Outreach Contact made with patient: No, left message. Selene Anaya RN April 28, 2024 3:20 PM documented in this encounter [facility] 04-28-2024 Note HNO ID: [id number] Author: SELENE ANAYA RN Service: ? Author Type: Registered Nurse Type: Progress Notes Filed: 04/28/2024 15:20 Note Text: [facility] Telephonic Outreach Provider Action/FYI Contacted for: Routine Telephonic Outreach Contact made with patient: No, left message. Selene Anaya RN April 28, 2024 3:20 PM [facility] 04-28-2024 Note Patient Outreach (AM BCMG) KANDI CORREIA ([id number]) 1945 F Date Time Provider Department 04/28/24 SELENE ANAYA [facility] During your visit today, we recorded the following information about you: Selene Anaya RN 04/28/2024 3:20 PM [address] [facility] Telephonic Outreach Provider Action/FYI Contacted for: Routine [...] tablets by mouth daily at bedtime. - qugifnkjwf-llquzolk-ghgbugaidm (BREZTRI) 160-9-4.8 mcg/actuation HFA aerosol inhaler Inhale [...] this patient by: PATIENT Maria Alejandra Nolan (Professor Of Biochemistry) Problem List As Of Date 04/28/2024 Noted [...] Encounter Status:Closed by SELENE ANAYA on 04/28/24 [facility] 04-14-2024 Telephone encounter Note Pt notified thru MyChart to continue Magnesium. Judy Borrego LPN [facility] 04-14-2024 Miscellaneous Notes Pt notified thru MyChart [...] Magnesium is ok. documented in this encounter [facility] 04-14-2024 Telephone encounter Note Pt notified with results and would like to know if she is to continue to take (1) magnesium daily. This is what she was instructed to do earlier. Please advise pt. .Judy Borrego LPN [facility] 04-14-2024 Telephone encounter Note ----- Message from Casandra Kinsey sent at 04/14/2024 12:42 PM EST ----- Anemia persists but is stable. Magnesium is ok. [facility] 04-11-2024 Telephone encounter Note Last appointment: 09/30/23 Next appointment: 07/02/24 Pharmacy verified in Epic. Refill(s) requested: Requested Prescriptions Pending Prescriptions Disp Refills fluticasone (FLONASE) 50 mcg/actuation nasal spray [Pharmacy Med Name: Fluticasone Propionate Nasal Suspension 50 MCG/ACT] 32 g 3 Sig: USE 1 SPRAY IN EACH NOSTRIL ONE TIME DAILY Order(s) pended. Please advise. Vera Pollock MA, CLOTH MEASURER MACHINE [facility] 04-11-2024 Miscellaneous Notes Last appointment: 09/30/23 Next appointment: 07/02/24 Pharmacy verified in Epic. Refill(s) requested: Requested Prescriptions Pending Prescriptions Disp Refills fluticasone (FLONASE) 50 mcg/actuation nasal spray [Pharmacy Med Name: Fluticasone Propionate Nasal Suspension 50 MCG/ACT] 32 g 3 Sig: USE 1 SPRAY IN EACH NOSTRIL ONE TIME DAILY Order(s) pended. Please advise. Vera Pollock MA, CLOTH MEASURER MACHINE documented in this encounter [facility] 03-31-2024 Note HNO ID: [id number] Author: SELENE ANAYA RN Service: ? Author Type: Registered Nurse Type: Progress Notes Filed: 03/31/2024 15:17 Note Text: [facility] Telephonic Outreach Provider Action/FYI Contacted for: Routine Telephonic Outreach Contact made with patient: No, left message. Selene Anaya RN March 31, 2024 3:16 PM [facility] 03-31-2024 History of Present illness Narrative [facility] Telephonic Outreach Provider Action/FYI Contacted for: Routine Telephonic Outreach Contact made with patient: No, left message. Selene Anaya RN March 31, 2024 3:16 PM [facility] Telephonic Outreach Provider Action/FYI Contacted for: Routine Telephonic Outreach Contact made with patient: No, left message. Selene Anaya RN March 31, 2024 1:31 PM documented in this encounter [facility] 03-31-2024 Note HNO ID: [id number] Author: SELENE ANAYA RN Service: ? Author Type: Registered Nurse Type: Progress Notes Filed: 03/31/2024 13:32 Note Text: [facility] Telephonic Outreach Provider Action/FYI Contacted for: Routine Telephonic Outreach Contact made with patient: No, left message. Selene Anaya RN March 31, 2024 1:31 PM [facility] 03-31-2024 Note Patient Outreach ([facility] KANDI CORREIA ([id number]) 1945 F Date Time Provider Department 03/31/24 SELENE ANAYA [facility] During your visit today, we recorded the [...] tablets by mouth daily at bedtime. - rksklfntos-rhqsvjju-nibgvkvpyy (BREZTRI) 160-9-4.8 mcg/actuation HFA aerosol inhaler Inhale [...] this patient by: PATIENT Maria Alejandra Nolan (Professor Of Biochemistry) Problem List As Of Date 03/31/2024 Noted [...] Encounter Status:Closed by JOHNSHANNANSELENE Roshan on 03/31/24 [facility] 03-29-2024 Telephone encounter Note Kandi from [facility] calling and needs clarification for oxygen. Does she need portable concentrator or tank. Is POC to be continuous? If portable will need the dose. Also need order for stationary tank [facility] 03-29-2024 Miscellaneous Notes Kandi from [facility] calling and needs clarification for oxygen. Does she need portable concentrator or tank. Is POC to be continuous? If portable will need the dose. Also need order for stationary tank documented in this encounter [facility] 03-11-2024 Telephone encounter Note Spoke with patient [...] agreed and verbalized understanding. Aurelia Rose MA [facility] 03-11-2024 Miscellaneous Notes Spoke with patient and [...] anemia? Can reschedule. documented in this encounter [facility] 03-11-2024 Telephone encounter Note No, still needed gi follow up. Appt was made and no showed Reset up Take mag once a day. Recheck labs in one month [facility] 03-11-2024 Telephone encounter Note Has some there [...] hospitalization from the bleeding that she had? [facility] 03-11-2024 Telephone encounter Note Mag is slightly low. Check if taking any mag supplements? Also anemia is stable. Iron is ok. She was referred to gi last year for anemia and blood in the stool. Does not appear she went. Is she willing to see them to rule out gi source of anemia? Can reschedule. T [facility] 03-09-2024 History of Present illness Narrative Patient [...] Reason for visit: Abdominal pain Which facility: [facility] Date of visit: 08/28/23 Diagnosis: Pneumonia [...] 3 tablets by mouth daily at bedtime. dsazgvwrua-nbyxnkdg-ypdjtsilnw (BREZTRI) 160-9-4.8 mcg/actuation HFA aerosol inhaler Inhale [...] HISTORY Diagnosis Date AAA (abdominal aortic aneurysm) ([facility]) Abdominal aortic aneurysm (AAA) without rupture ([facility]) 09/09/2023 Aneurysm of left common iliac artery ([facility]) 11/05/2023 Aneurysm, thoracic aortic ([facility]) Arthritis Centrilobular emphysema ([facility]) 10/01/2022 Chronic pain Chronic respiratory failure with hypoxia ([facility]) 05/24/2019 Chronic venous stasis dermatitis COPD (chronic obstructive pulmonary disease) ([facility]) Degenerative disc disease Depression Descending thoracic aortic dissection ([facility]) 12/22/[address] Perry (vascular) Dissection of thoracoabdominal aorta ([facility]) 09/21/2023 Fibromyalgia HTN (hypertension) OA (osteoarthritis) MICHEL (obstructive sleep apnea) not on CPAP Restless leg syndrome Thoracic aortic aneurysm ([facility]) 12/23/2018 PAST SURGICAL HISTORY Procedure Laterality Date [...] YR, HIGH DOSE, TRIVALENT (FLUZONE HIGH-DOSE) - [employer] COVID-19 VACCINE AGE 12+ YR (COMIRNATY) 3. [...] months and prn. documented in this encounter [facility] 03-03-2024 Telephone encounter Note Prescription Refill Information [...] Holloway LPN March 03, 2024 8:56 AM [facility] 03-03-2024 Miscellaneous Notes Prescription Refill Information The [...] 2024 8:56 AM documented in this encounter [facility] 03-02-2024 History of Present illness Narrative CD Telephonic Outreach Provider Action/FYI Contacted for: Routine Telephonic Outreach Contact made with patient: No, left message. Selene Anaya RN March 02, 2024 3:53 PM Last CDM outreach contact: 02/03/24 - No new CDM concerns. Knees bothering her. Follows with Pain management and that Is helpful [facility] Telephonic Outreach Provider Action/FYI Contacted for: Routine Telephonic Outreach Contact made with patient: No, left message. Selene Anaya RN March 02, 2024 1:38 PM documented in this encounter [facility] 02-29-2024 Telephone encounter Note Prescription Refill Information [...] Hermosillo LPN February 29, 2024 9:31 AM [facility] 02-29-2024 Miscellaneous Notes Prescription Refill Information The [...] 2024 9:31 AM documented in this encounter [facility] 02-09-2024 Telephone encounter Note Prescription Refill Information [...] Hermosillo LPN February 09, 2024 10:52 AM [facility] 02-09-2024 Miscellaneous Notes Prescription Refill Information The [...] 2024 10:52 AM documented in this encounter [facility] 02-03-2024 History of Present illness Narrative CDM [...] has Blink camera set up Based on corporate consultant, the following disposition is advised: No symptoms [...] 2024 2:02 PM documented in this encounter [facility] 02-01-2024 Telephone encounter Note Patient phones requesting refills as follows: Requested Prescriptions Pending Prescriptions Disp Refills pizwnwghuo-urinuhhm-balrtjvwpi (BREZTRI) 160-9-4.8 mcg/actuation HFA aerosol inhaler 10.7 g 5 Sig: Inhale 2 Puffs as instructed two times a day. Please review and advise. Staci Zamorano LPN [facility] 02-01-2024 Miscellaneous Notes Patient phones requesting refills as follows: Requested Prescriptions Pending Prescriptions Disp Refills ylldgthxex-hcesmxvp-rqhypijtzc (BREZTRI) 160-9-4.8 mcg/actuation HFA aerosol inhaler 10.7 g 5 Sig: Inhale 2 Puffs as instructed two times a day. Please review and advise. Staci Zamorano LPN documented in this encounter [facility] 01-11-2024 History of Present illness Narrative [facility] Telephonic Outreach Provider Action/FYI Contacted for: Routine [...] more often than normal? No Based on corporate consultant, the following disposition is advised: No symptoms [...] insecurity completed: 01/11/23 documented in this encounter [facility] 01-11-2024 Telephone encounter Note Prescription Refill Information [...] Burrell LPN January 11, 2024 11:07 AM [facility] 01-11-2024 Miscellaneous Notes Prescription Refill Information The [...] 2024 11:07 AM documented in this encounter [facility] 01-06-2024 History of Present illness Narrative Images from the original note were not included. [facility] Date: January 06, 2024 Patient Name: Kandi Correia PRIMARY CARE PROVIDER: Jalyn Smith MD REASON FOR VISIT: follow up HPI: Kandi Correia 78 year old female former 40-mqau-xqyl smoker having quit in 2011 with PMH [...] 07/30/2021 COVID-19 vaccine, age 12+ yr, bivalent ([employer] [place]) 03/20/2022 influenza (HD-IIV3) vaccine, age 65+ yr, [...] (HCC) No date: Arthritis 10/01/2022: Centrilobular emphysema ([facility]) No date: Chronic pain 05/24/2019: Chronic respiratory failure with hypoxia ([facility]) No date: Chronic venous stasis dermatitis No date: COPD (chronic obstructive pulmonary disease) ([facility]) No date: Degenerative disc disease No date: Depression 12/22/2018: Descending thoracic aortic dissection ([facility]) Comment: medically managed by Dr. Perry (vascular) 09/21/2023: Dissection of thoracoabdominal aorta ([facility]) No date: Fibromyalgia No date: HTN (hypertension) [...] Collected: 01/11/2021 2:09 PM (Final result) Narrative: [facility] [address] [place] [address] Test Date: 2021-01-11 Pat Name: KANDI CORREIA Department: Room: Gender: Female Electrical Maintenance Engineer: ROBERT Palencia : 1945 Requested By: Order Number: [id number] Reading MD: Brady Avila Interpretive Statements The [...] EDT by Brady Avila Site: WO ID: [id number] Name: KANDI CORREIA Visit Date: 01/11/2021 Second ID: [id number] Reviewing Doctor: [place] Electrical Maintenance Engineer: ROBERT M. Age: 75 : 1945 Sex: Female Race: Height: 64.00 Inches Weight: 226.80 Lbs BSA: 2.06 Order IDs: [id number] Requested Test(s): Spirometry baseline only Diagnosis: J43.2^Centrilobular [...] smoker - ICD9: V15.82, ICD10: Z87.891 Former 69-vvus-uvnv smoker having quit in 2011 with sequelae [...] Juhi Nolasco PA-C documented in this encounter [facility] 12-14-2023 History of Present illness Narrative CD [...] SDOH transportation and food insecurity completed: 01/11/[address] [facility] Telephonic Outreach Provider Action/FYI Contacted for: Routine Telephonic Outreach Contact made with patient: No, left message. Selene Anaya RN December 14, 2023 3:09 PM documented in this encounter [facility] 11-18-2023 Telephone encounter Note Patient notified RX sent to [facility]. I called [facility] is currently on backorder. Spoke to Giancarlo at [facility]. They did have RX in stock. Called in one month supply x1 refill. Patient notified re: same. Staci Zamorano LPN [facility] 11-18-2023 Miscellaneous Notes Patient notified RX sent to [facility]. I called [facility] currently on backorder. Spoke to Giancarlo at [facility]. They did have RX in stock. Called in one month supply x1 refill. Patient notified re: same. Staci Zamorano LPN Sent to pharmacy. [facility] Patient phones requesting refills as follows: Requested Prescriptions Pending Prescriptions Disp Refills arqhewuxre-utsvdicj-dzqoqqwmpl (BREZTRI) 160-9-4.8 mcg/actuation HFA aerosol inhaler 32.1 g 3 Sig: Inhale 2 Puffs as instructed two times a day. Please review and advise. Staci Zamorano LPN documented in this encounter [facility] 11-18-2023 Telephone encounter Note Sent to pharmacy. [facility] 11-18-2023 Telephone encounter Note Patient phones requesting refills as follows: Requested Prescriptions Pending Prescriptions Disp Refills onsrhjpbat-zrhijsxe-zvptnmyhke (BREZTRI) 160-9-4.8 mcg/actuation HFA aerosol inhaler 32.1 g 3 Sig: Inhale 2 Puffs as instructed two times a day. Please review and advise. Staci Zamorano LPN [facility] 11-18-2023 Telephone encounter Note Opened in error. Staci Zamorano LPN [facility] 11-18-2023 Miscellaneous Notes Opened in error. Staci Zamorano LPN documented in this encounter [facility] 11-16-2023 History of Present illness Narrative CDM [...] insecurity completed: 01/11/23 documented in this encounter [facility] 11-12-2023 Telephone encounter Note Patient MyChart message requesting the following refill Refill(s) Requested: Requested Prescriptions Pending Prescriptions Disp Refills metFORMIN (GLUCOPHAGE) 500 mg tablet 30 tablet 0 Sig: Take 1 tablet by mouth daily with breakfast. ALLERGIES Allergen Reactions Lisinopril Other: See Comments cough Lyrica [Pregabalin] Swelling (home) [phone] (cell) Last Office Visit Date: 09/08/2023 Last [facility] [place] [facility] Visit: Visit date not found Future Appointment: 03/09/2024 The patients preferred pharmacy has been captured for this encounter? yes Request is for script(s) to be escript to pharmacy. Cecile Hollins LPN [facility] 11-12-2023 Miscellaneous Notes Patient MyChart message requesting the following refill Refill(s) Requested: Requested Prescriptions Pending Prescriptions Disp Refills metFORMIN (GLUCOPHAGE) 500 mg tablet 30 tablet 0 Sig: Take 1 tablet by mouth daily with breakfast. ALLERGIES Allergen Reactions Lisinopril Other: See Comments cough Lyrica [Pregabalin] Swelling (home) [phone] (cell) Last Office Visit Date: 09/08/2023 Last [facility] [place] [facility] Visit: Visit date not found Future Appointment: 03/09/2024 The patients preferred pharmacy has been captured for this encounter? yes Request is for script(s) to be escript to pharmacy. Cecile Hollins LPN documented in this encounter [facility] 11-05-2023 History of Present illness Narrative Images from the original note were not included. [facility] ESTABLISHED CLINIC VISIT Kandi Correia [id number] HPI: Ms. Correia is a 78 year [...] mg by mouth two times a day. yvnepjxsqz-toskagua-btniedxjrf (BREZTRI) 160-9-4.8 mcg/actuation HFA aerosol inhaler Inhale [...] stasis dermatitis COPD (chronic obstructive pulmonary disease) ([facility]) Degenerative disc disease Depression Descending thoracic aortic dissection ([facility]) 12/22/[address] Perry (vascular) Dissection of thoracoabdominal aorta ([facility]) 09/21/2023 Fibromyalgia HTN (hypertension) OA (osteoarthritis) MICHEL (obstructive sleep apnea) not on CPAP Restless leg syndrome Thoracic aortic aneurysm ([facility]) 12/23/2018 PAST SURGICAL HISTORY: PAST SURGICAL HISTORY [...] 4 - Moderate documented in this encounter [facility] 11-03-2023 Telephone encounter Note Patient calling with request for assistance with finding a supply company that [employer] will cover. Patient received a letter that her [employer] is no longer covered. Patient receives her oxygen supplies from them. Patient denies any new or worsening symptoms of which a provider is not aware: Yes. Patient transferred to her pulmonary provider's office. She was also advised to contact [employer] directly to see which medical supply company may be covered. [facility] 11-03-2023 Miscellaneous Notes Patient calling with request for assistance with finding a supply company that [employer] will cover. Patient received a letter that her [employer] is no longer covered. Patient receives her oxygen supplies from them. Patient denies any new or worsening symptoms of which a provider is not aware: Yes. Patient transferred to her pulmonary provider's office. She was also advised to contact [facility] directly to see which medical supply company may be covered. documented in this encounter [facility] 10-29-2023 Telephone encounter Note The following approved medication requests have been transmitted electronically. Requested Prescriptions Pending Prescriptions Disp Refills rOPINIRole (REQUIP) 0.5 mg tablet 270 tablet 1 Sig: Take 3 tablets by mouth daily at bedtime. Casandra Kinsey APRN.CNS [facility] 10-29-2023 Miscellaneous Notes The following approved medication [...] Zackery Corral MA. documented in this encounter [facility] 10-29-2023 Telephone encounter Note Patient has been [...] Please advise. Thank you. Zackery Corral MA. [facility] 10-19-2023 History of Present illness Narrative CDM [...] to use MDI. Understanding COPD. Based on corporate consultant, the following disposition is advised: No symptoms [...] insecurity completed: 01/11/23 documented in this encounter [facility] 10-14-2023 History of Present illness Narrative Radiology [...] PATIENT PRESENTS WITH AN IMPLANTABLE OR ATTACHED MENTAL HEALTH WORKER: No RADIOLOGY DEPARTMENT: CT; Exam(s) Completed: CTA Abdomen Pelvis and CTA Cardiac PERIPHERAL IV DATA: Site assessment: Clean,Dry and Intact, Site disposition Discontinued SIGNED BY: VERA Milner October 14, 2023 2:13 PM documented in this encounter [facility] 10-14-2023 Nurse Note Radiology Service Progress Note [...] DATE: October 14, 2023 TIME: 2:09 PM [facility] 10-14-2023 Nurse Note Radiology Service Progress [...] TIME: 2:09 PM documented in this encounter [facility] 10-02-2023 Telephone encounter Note Patient has been identified by name and date of : Yes, Provider [place] Date 10/02/23 Time 04:33pm Patient phones for [...] Please advise. Thank you. Nisha Valencia MA. [facility] 10-02-2023 Miscellaneous Notes Patient has been identified [...] Nisha Valencia MA. documented in this encounter [facility] 09-30-2023 Procedure note Associated Ord er(s): OXIMETRY [...] September 30, 2023 TIME: 12:17 PM Comment: [facility] 09-30-2023 Procedure note Associated Ord er(s): OXIMETRY [...] 12:17 PM Comment: documented in this encounter [facility] 09-30-2023 History of Present illness Narrative PULM FUNCTION SMARTBLOCK: Provider: Zackery Mayfield MD Assisting Tech: Karen Vargas RPFT Oximetry - Ambulation: 1 documented in this encounter [facility] 09-30-2023 History of Present illness Narrative Images from the original note were not included. Patient: Kandi Correia PCP: Jalyn Smith MD CC: follow up HPI: Kandi Correia 78 year old female former 97-xpev-actn smoker having quit in 2011 with PMH significant for obesity, HTN, fibromyalgia, descending aortic aneurysm with dissection, MICHEL not on CPAP, severe COPD (FEV1 32%), chronic hypoxemic respiratory failure presenting for follow-up visit. Current inhaled therapy consists of budesonide, Brovana and DuoNeb. Patient was seen in the [place] ED 08/28/[address] abd/pelvis showed bibasilar consolidations and she was treated with Levaquin for 7 days. Today, patient states she is doing well. Daily cough productive of white phelgm. No hemoptysis. Exertional dyspnea with minimal effort. No fevers, chills or night sweats. Currently wearing 3 L continuously. DME: [employer] PAST MEDICAL HISTORY Diagnosis Date AAA (abdominal aortic aneurysm) ([facility]) Abdominal aortic aneurysm (AAA) without rupture ([facility]) 09/09/2023 Aneurysm, thoracic aortic ([facility]) Arthritis Centrilobular emphysema ([facility]) 10/01/2022 Chronic pain Chronic respiratory failure with hypoxia ([facility]) 05/24/2019 Chronic venous stasis dermatitis COPD (chronic obstructive pulmonary disease) ([facility]) Degenerative disc disease Depression Descending thoracic aortic dissection ([facility]) 12/22/[address] 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 documented in this encounter [facility] 09-24-2023 Miscellaneous Notes I have called and spoke to the patient several times to explain and talk over what we can do and what has happened with the testing and possibly getting her to see Dr. Todd out in [place] coming to [place]. She wants to go to to see [place] and for the testing if it cannot be done at the [place] Location. I gave the patient the phone # to the [place] location but she stated it would not go through. I messaged Kasey to ask her to call the patient and schedule something for her. documented in this encounter [facility] 09-21-2023 Note HNO ID: [id number] Author: YANIV TODD MD Service: ? Author Type: Physician Type: Progress Notes Filed: 09/21/2023 17:58 Note Text: [facility] DEPARTMENT OF VASCULAR SURGERY OUTPATIENT VISIT DATE September 21, 2023 OUTPATIENT VISIT TYPE CONSULTATION PRIMARY CARE PHYSICIAN: Jalyn Smith MD REFERRING PROVIDER: Jalyn Smith [address] [facility] [id number] Consult requested for an opinion regarding the [...] PAST MEDICAL HISTORY: (more content not included)... [facility] 09-21-2023 History of Present illness Narrative Images from the original note were not included. [facility] DEPARTMENT OF VASCULAR SURGERY OUTPATIENT VISIT DATE September 21, 2023 OUTPATIENT VISIT TYPE CONSULTATION PRIMARY CARE PHYSICIAN: Jalyn Smith MD REFERRING PROVIDER: Jalyn Smith [address] [facility] [id number] Consult requested for an opinion regarding the [...] HISTORY Diagnosis Date AAA (abdominal aortic aneurysm) ([facility]) Abdominal aortic aneurysm (AAA) without rupture ([facility]) 09/09/2023 Aneurysm, thoracic aortic ([facility]) Arthritis Centrilobular emphysema ([facility]) 10/01/2022 Chronic pain Chronic respiratory failure with hypoxia ([facility]) 05/24/2019 Chronic venous stasis dermatitis COPD (chronic obstructive pulmonary disease) ([facility]) Degenerative disc disease Depression Descending thoracic aortic dissection ([facility]) 12/22/[address] 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 No Based on corporate consultant, the following disposition is advised: No symptoms [...] insecurity completed: 01/11/23 documented in this encounter [facility] 09-15-2023 Miscellaneous Notes Pt states she is taking metoprolol as needed, needs refill documented in this encounter [facility] 09-14-2023 Miscellaneous Notes Patient MyChart message requesting the following refill Refill(s) Requested: Requested Prescriptions Pending Prescriptions Disp Refills oxybutynin XL (DITROPAN XL) 5 mg 24 hr tablet 90 tablet 1 Sig: Take 1 tablet by mouth once daily. ALLERGIES Allergen Reactions Lisinopril Other: See Comments cough Lyrica [Pregabalin] Swelling (home) [phone] (cell) Last Office Visit Date: 09/08/2023 Last [facility] [place] [facility] Visit: Visit date not found Future Appointment: 03/09/2024 The patients preferred pharmacy has been captured for this encounter? yes Request is for script(s) to be escript to pharmacy. Cecile Hollins LPN documented in this encounter [facility] 09-12-2023 Miscellaneous Notes Requested Prescriptions Pending Prescriptions Disp Refills metFORMIN (GLUCOPHAGE) 500 mg tablet 30 tablet 0 Sig: Take 1 tablet by mouth daily with breakfast. Date of last office visit in primary care: 09/08/2023 Date of next office visit in primary care: 03/09/2024 Please advise. Thank you. Karel Gonzalez MA. documented in this encounter [facility] 09-10-2023 Miscellaneous Notes I called the patient and explained that she needed to be re-certified due to new insurance. She states that she DOES NOT have new insurance. Pt very worried that she is going to run out and does not want to have to pay out of pocket. Called [facility] back and they were made aware that nothing has changed. They reassured me that they had all of the documentation needed from our office. They are going to call pt today and scheduled for tomorrow. Judy Bagley MA Pt calling to see the status of her oxygen. Call to [facility]. They state that they were just informed that the patient has new insurance. That means that she needs to requalify. They require a recent SP02 that is 88% or below on room air. If SP02 is above that, they would need the additional testing. Please review and advise. Judy Bagley MA documented in this encounter [facility] 09-09-2023 Miscellaneous Notes Patient is overdue to see vascular for follow up. Was a patient of Dr Perry and was to be transferring over to Dr Darby. Can we please help patient get set up? documented in this encounter [facility] 09-09-2023 Miscellaneous Notes Patient and daughter were [...] in two weeks. documented in this encounter [facility] 09-08-2023 History of Present illness Narrative Radiology [...] PATIENT PRESENTS WITH AN IMPLANTABLE OR ATTACHED MENTAL HEALTH WORKER: No RADIOLOGY DEPARTMENT: General X-ray: Exam(s) Completed: Chest X-Ray PERIPHERAL IV DATA: Not applicable SIGNED BY: RT Rashard(R) September 08, 2023 3:01 PM documented in this encounter [facility] 09-08-2023 History of Present illness Narrative Patient presents with: ER F/U HPI: Patient presents today for office visit for ER follow up. HOSPITAL/ER FOLLOW UP: Reason for visit: Abdominal pain Which facility: [facility] Date of visit: 08/28/23 Diagnosis: Pneumonia [...] Jalyn Smith MD documented in this encounter [facility] 2023 Miscellaneous Notes Called patient for update. Patient was seen at [facility] ED and diagnosed with pneumonia. Patient denies any needs from us at this time. Ashley Britt RN documented in this encounter [facility] 2023 Miscellaneous Notes See triage. Pt scheduled for L side back and stomach pain on 08/30. Please triage. Pt was referred to GI in January for Anemia, Blood in Stool and Diarrhea, pt declined. Pt was also referred to Pain Mgmt for back pain, referral was faxed to Dr. Paul's office. Please triage pt. Aj Hermosillo LPN documented in this encounter [facility] 08-28-2023 Discharge summary Note Date/Time August 28, 2023 3:12pm [facility] Medical Records Department [address] [place] [address] Emergency Department Summary 08/28/23 MR#: [id number] Acct: [id number] Name: KANDI CORREIA Rep #:[id number] : 1945 77 From: Juni Ho DO [...] or chills. Denies urinary or vaginal complaints. [facility] Medical History (Updated 08/28/23 @ 17:39 [...] 84.7 H Lymph % (Auto) 1.8 L Hanson % (Auto) 12.3 H Eos % (Auto) [...] your Primary Care Provider. Call [facility] ([phone]) or report to the closest Emergency Room. Call 911 if necessary. 08/28/23 174 <Electronically signed by Juni Ho DO> Cosigner Signature (if applicable): CC: Dr. Jalyn Smith MD ~ Signed [facility] Work Phone: 1(192) 479-520403-22-2024 Miscellaneous Notes* Telephone Encounter - Maria Alejandra [...] : Postmenopausal. Protocols used: Abdominal Pain - Pyyurw-QMSSS-ME documented in this encounterTrinity [facility]03-18-2024 History of Present illness Narrative* Selene Anaya [...] more often than normal? No Based on corporate consultant, the following disposition is advised: No symptoms [...] Anaya RN - 08/24/2023 11:44 AM EDT [facility] Telephonic Outreach Provider Action/FYI Contacted for: Routine Telephonic Outreach Contact made with patient: No, left message. Selene Anaya RN August 24, 2023 11:47 AM documented in this encounterTrinity [facility]03-18-2024 Miscellaneous Notes* Telephone Encounter - Casandra Burrell [...] you. Casandra Burrell LPN. documented in this encounterTrinity [facility]03-11-2024 History of Present illness Narrative* Selene Anaya RN - 08/17/2023 5:17 PM EDT [facility] Telephonic Outreach Provider Action/FYI Contacted for: Routine [...] Anaya RN - 08/17/2023 4:28 PM EDT [facility] Telephonic Outreach Provider Action/FYI Contacted for: Routine Telephonic Outreach Contact made with patient: No, left message. Selene Anaya RN August 17, 2023 4:31 PM documented in this encounterTrinity [facility]02-26-2024 Miscellaneous Notes* Telephone Encounter - Casandra Kinsey [...] 01/12/23 Kalpana Sharif LPN documented in this encounterTrinity [facility]02-16-2024 History of Present illness Narrative* Zackery Mayfield MD - 07/24/2023 10:30 AM EST Images from the original note were not included. . Respiratory Beecher Note Patient name: Kandi Correia PCP: Jalyn Smith MD CC: Follow-up COPD HPI: Kandi Correia 77 year old female former 34-tydd-rctk smoker having quit in 2011 with PMH [...] 0.94 Low Monocytes % % 12.6 Abs Hanson <0.87 k/uL 0.81 Eosinophils % % 3.1 [...] stasis dermatitis COPD (chronic obstructive pulmonary disease) ([facility]) Degenerative disc disease Depression Descending thoracic aortic dissection ([facility]) 12/22/[address] Perry (vascular) [...] supply [facility]bulized treatments [facility]. Chronic hypoxemic respiratory failure -Patient is compliant with and benefits from supplemental oxygen -Needs to remember to breathe through her nose 3. Former cigarette smoker -Former 27-vchs-dydm smoker having quit in 2011 with sequelae of severe COPD -Patient is not a candidate for lung cancer screening based on her severe COPD, oxygen dependence, other comorbidities and debilitated state 4. Class II obesity -BMI 35 -Weight loss advised Zackery Mayfield MD Respiratory [facility]echer documented in this encounterTrinity Health [facility]02-12-2024 History of Present illness Narrative* Selene Anaya, SANDRA - 07/20/2023 12:47 PM EST [facility] Telephonic Outreach Provider Action/FYI Contacted for: Routine [...] has Blink camera set up Based on corporate consultant, the following disposition is advised: No symptoms [...] food insecurity completed: 01/11/23 documented in this encounterTrinity [facility]02-08-2024 History of Present illness Narrative* Selene Anaya RN - 07/16/2023 11:59 AM EST [facility] Telephonic Outreach Provider Action/FYI Contacted for: Routine [...] food insecurity completed: 01/11/23 documented in this encounterTrinity [facility]12-11-2023 Miscellaneous Notes* Telephone Encounter - Roseann Schmitz [...] patient. Roseann Schmitz RN documented in this encounterTrinity [facility]11-27-2023 Miscellaneous Notes* Telephone Encounter - Kalpana Sharif [...] request Kalpana Sharif LPN documented in this encounterTrinity [facility]11-15-2023 History of Present illness Narrative* Juliann Carrillo RN - 04/22/2023 4:07 PM EST [facility] Telephonic Outreach Provider Action/FYI Contacted for: Routine Telephonic Outreach Contact made with patient: No, left message. Juliann Worrell RN April 28, 2023 5:53 PM documented in this encounterTrinity Health [facility] Center10-23-2023 History of Present illness Narrative* Lizett Restrepo MSW - 03/30/2023 1:09 PM EDT Patient spoke with Vin regarding any programs to help with paying her daughter that moved in to takecare of patient in her home. Sw noted that she is not aware of any grants for this. Sw noted patient could contact [facility] [employer] and see if they know of any services. Vin noted [facility] has Passport program for those on Medicaid and they help cover cost of home vp care management. Sw noted this information as [facility] may then have resource knowledge of any type of assistance for daughter as patient caregiver. Patient thanked Vin for information and will reach out to [facility] [employer]. documented in this encounterTrinity [facility]10-20-2023 History of Present illness Narrative* Selene Anaya [...] more often than normal? No Based on corporate consultant, the following disposition is advised: No symptoms [...] Anaya RN - 03/27/2023 12:30 PM EDT [facility] Telephonic Outreach Provider Action/FYI Contacted for: Routine Telephonic Outreach Contact made with patient: No, left message. Selene Anaya RN March 27, 2023 12:32 PM Care Coordination next call- COPD DM lvm x [address] [facility] outreach contact: 02/10 -COPD No concerns. Pain to shoulders and back, knees from OA. Follows with Pain Management Next appt 02/18 Baseline: 01/12/23 ADL, FALL, GOAL due: 10/16/23 . Chronic disease goal - 10/15/22 -copd SDOH transportation and food insecurity completed: 01/11/23 documented in this encounterTrinity Health [facility]10-20-2023 Miscellaneous Notes* Telephone Encounter - Stacey Rod [...] notify patient. Stacey Rod documented in this encounterTrinity Health [facility] Center10-05-2023 Miscellaneous Notes* Telephone Encounter - Juhi Nolasco PA-C - 03/12/2023 1:21 PM EDT Refilled script johnnab * Telephone Encounter - SterlingAlma joseStaci NICOLAS - 03/12/2023 1:13 PM EDT Patient phones requesting refills as follows: JERRELL: 01/19/23 Requested Prescriptions Pending Prescriptions Disp Refills arformoterol (BROVANA) 15 mcg/2 mL nebulizer solution 360 mL 2 Sig: Inhale 2 mL as instructed every 12 hours. May mix with Budesonide neb twice a day. Please review and advise. Staci Katzdamon VALENZUELA documented in this encounterTrinity Health [facility] Center09-05-2023 History of Present illness Narrative* Selene Anaya [...] more often than normal? No Based on corporate consultant, the following disposition is advised: No symptoms [...] food insecurity completed: 01/11/23 documented in this encounterTrinity [facility]2023 Miscellaneous Notes* Telephone Encounter - Kalpana hSarif LPN - 02/05/2023 9:34 AM EDT Completed and faxed back. * Telephone Encounter - Aj Hermosillo LPN - 02/04/2023 3:20 PM EDT Type of form: PT eval from [facility] Form received via fax When form is completed, Fax form to [phone] Form has been forwarded to Physician Mailbox: Dr. Luis Hermosillo LPN documented in this encounterTrinity Health [facility]08-17-2023 History of Present illness Narrative* Marian Real - 01/22/2023 1:34 PM EDT [facility] NAVIGATION OUTREACH Action/[facility] Support: Called pt to schedule an appt in Pain Management. Lvm for pt to call [phone] for scheduling Patient Identified by Name and [...] 22, 2023 1:34 PM documented in this encounterTrinity Health [facility]08-16-2023 Miscellaneous Notes* Telephone Encounter - Maria Alejandra Leon RN - 01/21/2023 4:14 PM EDT Adan RN with [facility] called and is notified of providers message and instructions. He voices understanding. Maria Alejandra Leon, RN * Telephone Encounter - Jalyn Smith MD - 01/21/2023 4:10 PM EDT ok * Telephone Encounter - Francoise Grady RN - 01/21/2023 3:51 PM EDT Adan RN with [facility] calls to let provider know that [...] Adan requests verbal order be called to [phone] if provider agrees. Francoise Grady RN documented in this encounterTrinity Health System [facility] Center08-14-2023 Instructions* Patient Instructions* Juhi Nolasco PA-C - 01/19/2023 2:30 PM EDT 9 am: Arformoterol (Brovana) + Budesonide (Pulmicort) mixed together via nebulizer 9 pm: Arformoterol (Brovana) + Budesonide (Pulmicort) mixed together via nebulizer You may use DuoNebs (Ipratropium/albuterol) throughout the day every 4 hours as needed for wheezing/SOB documented in this encounterTrinity Health System [facility] Center08-14-2023 History of Present illness Narrative* Juhi Nolasco [...] on chronic oxygen. Patient recently admitted to [facility] from 12/10 - 12/15 for UTI [...] Diagnosis Date COPD (chronic obstructive pulmonary disease) ([facility]) Degenerative disc disease Depression Descending thoracic aortic dissection ([facility]) 12/22/[address] Perry (vascular) [...] Cardiac chambers are unremarkable in appearance. Stable Beatrice type B dissection extending from the distal [...] acute osseous abnormality identified. IMPRESSION: Stable appearing Beatrice type B dissection. Possible peripheral and posterior [...] necessary. Juhi Nolasco PA-C documented in this encounterTrinity Health [facility]08-11-2023 Miscellaneous Notes* Telephone Encounter - Kalpana Sharif LPN - 01/16/2023 10:43 AM EDT Faxed. * Telephone Encounter - Jalyn Smith MD - 01/15/2023 5:29 PM EDT Was already placed on 01/12, see order * Telephone Encounter - Elyssa High RN - 01/15/2023 1:17 PM EDT Patient's daughter calling to request Pain Management referral be faxed to Dr. Paul @ [facility] Pain Management. Elyssa High RN documented in this encounterTrinity Health [facility]08-09-2023 Miscellaneous Notes* Telephone Encounter - Stacey Rod [...] her mind regarding consult documented in this encounterTrinity Health [facility]08-07-2023 History of Present illness Narrative* Selene Anaya RN - 01/12/2023 3:59 PM EDT [facility] Telephonic Outreach Provider Action/FYI Contacted for: Routine [...] like to speak with a social work merchandise flow team leader to help give you support for any of these needs? No Lives with daughter. Feels safe. + food Daughter has Blink camera set up It can be normal to feel anxious or down during a time like this. Would you like to talk to a mental health professional about how you have been feeling? No Based on corporate consultant, the following disposition is advised: No symptoms [...] Anaya RN - 01/12/2023 2:56 PM EDT [facility] Telephonic Outreach Provider Action/FYI Contacted for: Routine [...] food insecurity completed: no documented in this encounterTrinity Health [facility]08-07-2023 Miscellaneous Notes* Addendum Note - Jalyn Smith MD - 01/12/2023 2:49 PM EDTAddended by: JALYN SMITH on: 01/12/2023 02:49 PM Modules accepted: Orders documented in this encounterTrinity Health [facility]08-07-2023 History of Present illness Narrative* Jalyn Smith MD - 01/12/2023 1:50 PM EDT Patient presents with: Hospital F/U HPI: Patient presents today for office visit for hospital follow up. Seen in [facility] ER on 12/10/22 Discharged 12/15/22 Transferred [...] RTO in three months. documented in this encounterTrinity Health [facility]08-03-2023 Miscellaneous Notes* Telephone Encounter - Kristina Holloway LPN - 01/08/2023 11:24 AM EDT Patient phones requesting refills as follows: Requested Prescriptions Pending Prescriptions Disp Refills sertraline (ZOLOFT) 50 mg tablet 90 tablet 1 Sig: Take 1 tab once a day. JERRELL-12/12/22 Labs-12/05/22 NOV-01/12/23 Please review and advise. Kristina Holloway LPN documented in this encounterTrinity Health System [facility] Center08-03-2023 Miscellaneous Notes* Telephone Encounter - Kristina Holloway LPN - 01/08/2023 11:21 AM EDT Patient phones requesting refills as follows: Requested Prescriptions Pending Prescriptions Disp Refills baclofen 10 mg tablet 270 tablet 1 Sig: Take 1 tablet by mouth three times daily. JERRELL-12/12/22 Labs-12/05/22 NOV-01/12/23 Please review and advise. Kristina Holloway LPN documented in this encounterTrinity Health System [facility] Center08-03-2023 Miscellaneous Notes* Telephone Encounter - Francoise Grady RN - 01/08/2023 10:03 AM EDT Rizwana OT with [facility] calls to let provider know that patient was seen today for one time eval only visit. No further OT needs at this time. No call back needed. Francoise Grady RN documented in this encounterTrinity Health System [facility]07-28-2023 Discharge summary Author Gustavo Justice [facility] January 02, 2023 7:57am Note Date/Time December 30, 2022 7:46 pm [facility] Medical Records Department [address] [place] [address] Discharge Summary 12/30/221943 MR#: [id number] Acct: [id number] Name: KANDI CORREIA Rep #:[id number] : 1945 77 From: Gustavo Justice MD PCP: Dr. Jalyn Smith MD Status:ADM I N Location: [place] [address]- Providers Date of Admission: 12/15/22 Primary Care Physician: Dr. Jalyn Smith MD Consultations 12/22/22 07:54 Consult: Hospice / Palliative Care Routine Consulting Provider: [facility] Reason for Consult: Palliative consult dyspnea on exertion, fatigue. EMERGENT Consult: No MD Notified: Yes Date Notified: 12/26/22 Time Notified: 10:41 Method of Notification: Text Comments:: social media coordinator notified Reason For Visit: GENERALIZED WEAKNESS Diagnosis [...] Diabetes mellitus type: type 2 Diabetes mellitus residential insulin use:without residential use Diabetes mellitus complication status: with neurologic [...] Depression - Sertraline 50mg daily, stable chronic residential use, GDR not recommended. Medications at Discharge [...] home alone. Discharge home with daughter 01/02/2023, [facility] PT/OT, Front Wheeled [...] % (Auto) 55.5, Lymph % (Auto) 24.4, Hanson % (Auto) 15.2 H, Eos % (Auto) [...] Additional Instructions: Discharge home with daughter 01/02/2023, [facility] PT/OT, Front Wheeled Walker. Please Follow Up With: Friend,Kade, DO When: 4 weeks. Meaningful Use Info Meaningful Use Diagnoses (Choose all that apply): None applicable Discharge Plan Admission Admit Date/Time: 12/15/22 15:35 Primary Reason for Your Visit: Debility. Attending Provider: Gustavo Justice Chi Primary Care Provider: Jalyn Smith Consulting Providers: Neftaly Lam; Concepcion Peacock; Kaci Patino; Melanie Ochoa SOCIAL SCIENCE INSTRUCTOR Instructions Additional Instructions / Restrictions: Discharge home with daughter 01/02/2023, [facility] PT/OT, Front Wheeled Walker. [...] applicable): CC: Dr. Gustavo Justice MD; Dr. Jalny Smith MD~ Signed ADDENDUM by Dr. Gustavo Justice MD on 01/02/23 at 0757 Addendum 01/02/2023 Bilateral lower extremity cellulitis, Rx Keflex 500mg q6 x 7 days, Rx Doxycycline 100mg bid x 7 days, started on TCU, sent to [facility] for pickup on discharge today. 01/02/23756<Electronically signed by Gustavo Justice MD> Cosigner Signature (if applicable): cc: Dr. Gustavo Justice MD; Dr. Jalyn Smith MD ~* Signed [facility] Work Phone: 1(469) 705-649907-28-2023 Hospital Discharge instructions Additional Instructions -Discharge home with daughter 01/02/2023, [facility] PT/OT, . Front Wheeled Walker. -Oxygen at 3 liters per minute via nasal cannula continuous.[facility] Work Phone: 1(569) 638-854107-11-2023 Progress note Author Cira Ortiz [facility] December 16, 2022 3:10pm Note Date/Time December 16, 2022 1:51 pm [facility] Medical Records Department [address] [place] [address] Progress Note - Pharmacy 12/16/22 1347 MR#: [id number] Acct: [id number] Name: KANDI CORREIA Rep #:[id number] : 1945 77 From: Cira Ortiz PCP: Dr. Jalyn Smith MD Status:ADM I N Location: TCU [facility]- TCU RX Drug Regimen Review Subjective/Objective Subjective/Objective: [...] Cosigner Signature (if applicable): CC: ~ Signed [facility] Work Phone: 1(857) 498-315207-10-2023 History and physical note Author Gustavo Justice [facility] December 15, 2022 8:30pm Note Date/Time December 15, 2022 8:24 pm [facility] Medical Records Department [address] [place] [address] History & Physical Exam 12/15/222015 MR#: [id number] Acct: [id number] Name: KANDI CORREIA Rep #:[id number] : 1945 77 From: Gustavo Justice MD PCP: Dr. Jalyn Smith MD Status:ADM I N Location: [place] [address] HPI - General General Date of Admission: 12/15/22 Date of Service: 12/15/22 Chief Complaint: Here for rehabilitation. HPI Narrative 12/10/2022 KANDI CORREIA, is a 77 [facility]. 12/10/2022 EKG sinus [...] rehabilitation, stengthening, prior to discharge home alone. [facility] Medical History (Updated 12/15/22 @ [...] complication status: with neurologic complications Diabetes mellitus tank terminal gauger insulin use: without tank terminal gauger use Diabetes mellitus type: type 2 Qualified [...] Depression - Sertraline 50mg daily, stable chronic tank terminal gauger use, GDR not recommended. 12/15/222029 <Electronically signed by Gustavo Justice MD> Cosigner Signature (if applicable): CC: Dr. Gustavo Justice MD; Dr. Jalyn Smith MD~ Signed [facility] Work Phone: 1(308) 383-147707-10-2023 History of Present illness Narrative* Selene Anaya RN - 12/15/2022 2:53 PM EDT [facility] Telephonic Outreach Provider Action/FYI Spoke to daughter Karson; pt admitted at [facility] for UTI Tentative discharge today to [facility] for PT will f/u next month [...] food insecurity completed: no documented in this encounterTrinity Health [facility]07-10-2023 Discharge summary Author Chris Deshpande [facility] December 15, 2022 12:51pm Note Date/Time December 15, 2022 12:3 4pm [facility] Medical Records Department [address] [place] [address] Discharge Summary 12/15/22 1233 MR#: [id number] Acct: [id number] Name: KANDI CORREIA Rep #:[id number] : 1945 77 From: Chris Marie PCP: Dr. Jalyn Smith MD Status:ADM I NO [facility] Date of Admission: 12/10/22 Date of Discharge: 12/15/22 Primary Care Physician: Dr. Jalyn Smith MD Consultations 12/11/22 05:03 Consult: Onc/Wound/mortgage advisor Routine Comment: Reason for Consult:: rt leg [...] with increased frequency. Urine culture shows Klebsiella 32803?12927 colonies nonpathologic range. Patient was started on [...] -Case management consult. 12/13: Discussed with the director case. 12/15: Pre-CERT was obtained and patient approved [...] to schedule an establish care appointment (ph. [phone]). If there is a significant delay in [...] Long-Term Facility Charges/Coding Visit Charges Inpatient E&M: 60920 Disch Hosp >30min 12/15/22 1251 <Electronically signed by Chris Deshpande MD> Cosigner Signature (if applicable): CC: Dr. Chris Deshpande MD; Dr. Jalyn Smith MD~ Signed [facility] Work Phone: 1([phone]) 792-590807-10-2023 Discharge summary Author Chris Deshpande [facility] December 15, 2022 2:14pm Note Date/Time December 15, 2022 12:2 6pm [facility] Medical Records Department [address] [place] [address] Transfer to [facility] MR#: [id number] Acct: [id number] Name: KANDI CORREIA Rep #:[id number] : 1945 77 From: Chris Marie PCP: Dr. Jalyn Smith MD Status:ADM I NO Certification of patient admission REQUIRED AT TIME OF ADMISSION. I CERTIFY THAT POST-HOSPITAL ECF SERVICES ARE REQUIRED TO BE GIVEN ON AN IN-PATIENT BASIS BECAUSE OF THE ABOVE NAMED PATIENT'S NEED FOR SHELTER CARE ON A CONTINUING BASIS FOR THE [...] with increased frequency. Urine culture shows Klebsiella 00068?87789 colonies nonpathologic range. Patient was started on [...] -Case management consult. 12/13: Discussed with the director case. Pre-CERT pending. #Macrocytic anemia -Hemoglobin on presentation [...] to schedule an establish care appointment (ph. [phone]). If there is a significant delay in [...] MD; Dr. Jalyn Smith MD ~* Signed [facility] Work Phone: 1([phone]) 280-537107-09-2023 Progress note Author Chris Deshpande [facility] December 14, 2022 12:30pm Note Date/Time December 14, 2022 12:30 pm [facility] Medical Records Department [address] [place] [address] Progress Note - Hospitalist 12/14/22 1226 MR#: [id number] Acct: [id number] Name: KANDI CORREIA Rep #:[id number] : 1945 77 From: Chris Marie PCP: Dr. Jalyn Smith MD Status:ADM I NO Location: [place] [address] Reason for Visit Reason for Visit: Diagnoses [...] with increased frequency. Urine culture shows Klebsiella 80552?46147 colonies nonpathologic range. Patient was started on [...] -Case management consult. 12/13: Discussed with the director case. Pre-CERT pending. #Macrocytic anemia -Hemoglobin on presentation [...] sub q Charges/Coding Visit Charges Inpatient E&M: 64618 Subs Hosp L2 12/14/22 1230 <Electronically signed by Chris Deshpande MD> Cosigner Signature (if applicable): CC: ~ Signed [facility] Work Phone: 1(915) 759-834307-08-2023 Progress note Author Chriselver Deshpande [facility] December 13, 2022 5:01pm Note Date/Time December 13, 2022 7:55a [facility] Medical Records Department [address] [place] [address] Progress Note - Hospitalist 12/13/22 0755 MR#: [id number] Acct: [id number] Name: KANDI CORREIA Rep #:[id number] : 1945 77 From: Chris Marie PCP: Dr. Jalyn Smith MD Status:ADM I NO Location: [place] [address] Reason for Visit Reason for Visit: Diagnoses [...] 74.0 H, Lymph % (Auto) 10.3 L, Hanson % (Auto) 9.5, Eos % (Auto) 2.1, [...] complication status: with neurologic complications Diabetes mellitus tank terminal gauger insulin use: without tank terminal gauger use Diabetes mellitus type: type 2 Qualified [...] with increased frequency. Urine culture shows Klebsiella 12387?68689 colonies nonpathologic range. Patient was started on IV ceftriaxone in ED. I do not think patient had UTI after detailed history and discussion with daughter. Patient had 3 days of IV ceftriaxone. Antibiotic discontinued #Generalized weakness and falls -PT and OT to work with patient. -Case management consult. 12/13: Discussed with the director case. Pre-CERT pending. #Macrocytic anemia -Hemoglobin on presentation [...] sub q Charges/Coding Visit Charges Inpatient E&M: 61968 Subs Hosp L2 12/13/22 1701 <Electronically signed by Chris Deshpande MD> Cosigner Signature (if applicable): CC: ~ Signed [facility] Work Phone: [phone]) 820-886407-07-2023 Progress note Author Angle Latham [facility] December 12, 2022 4:23pm Note Date/Time December 12, 2022 4:24p [facility] Medical Records Department [address] [place] [address] Progress Note - Hospitalist 12/12/22 1618 MR#: [id number] Acct: [id number] Name: KANDI CORREIA Rep #:[id number] : 1945 77 From: Angle Latham MD PCP: Dr. Jalyn Smith MD Status:ADM I NO Location: [address] Reason for Visit Reason for Visit: [...] 72.2 H, Lymph % (Auto) 9.9 L, Hanson % (Auto) 11.3 H, Eos % (Auto) [...] Diabetes mellitus type: type 2 Diabetes mellitus prison insulin use: without residential use Diabetes mellitus complication status: with neurologic [...] sub q Charges/Coding Visit Charges Inpatient E&M: 56469 Subs Hosp L2 12/12/22 1623 <Electronically signed by Angle Latham MD> Cosigner Signature (if applicable): CC: ~ Signed [facility] Work Phone: 1(384) 115-546207-06-2023 Progress note Author Angle Latham [facility] December 11, 2022 2:51pm Note Date/Time December 11, 2022 11:20 am [facility] Medical Records Department [address] [place] [address] Progress Note - Hospitalist 12/11/22 1115 MR#: [id number] Acct: [id number] Name: KANDI CORREIA Rep #:[id number] : 1945 77 From: Angle Latham MD PCP: Dr. Jalyn Smith MD Status:ADM I NO Location: PR3 XP638-9 Reason for Visit Reason for Visit: Diagnoses [...] 74.0 H, Lymph % (Auto) 8.7 L, Hanson % (Auto) 12.0 H, Eos % (Auto) [...] Clarity Clear, Urine pH 7.0, Ur Specific P[place] 1.010, Urine Protein 30 H, Urine Glucose [...] 75.5 H, Lymph % (Auto) 7.8 L, Hanson % (Auto) 12.8 H, Eos % (Auto) [...] complication status: with neurologic complications Diabetes mellitus tank terminal gauger insulin use: without tank terminal gauger use Diabetes mellitus type: type 2 Qualified [...] prophylaxis: SCDs Charges/Coding Visit Charges Inpatient E&M: 99392 Subs Hosp L2 12/11/22 1402 <Electronically signed [...] Cosigner Signature (if applicable): cc: ~* Signed [facility] Work Phone: 1(171) 495-638707-06-2023 Miscellaneous Notes* Telephone Encounter - Herminia Chen RN - 12/11/2022 3:50 PM EDT [facility] Provider Action/FYI: Nurse water/wastewater project manager Alma calling from [facility] to ask if patient has home care set up. Per notes 12/08/22 and 12/10/22 daughter asking about home health but no notes stating that this is set up. water/wastewater project manager made aware and states I would route this message to the child care provider as well. Poonam, you've reached [facility], my name is Herminia Chen RN, I'm a registered nurse, and we are on a recorded line. Patient identified by name and date of Spoke with director case Verify that the patient is a [facility] patient: Yes Are you having any symptoms today? No - What is the reason for call? General Questions/Other Need Call Disposition: Routed to [facility] Thank you for calling [facility]. If you develop any new symptoms, your condition worsens, then GO TO THE EMERGENCY ROOM OR CALL 911. If you have any questions, please call us back. documented in this encounterTrinity [facility]07-06-2023 History and physical note Author Burke Patterson [facility] December 11, 2022 5:31am Note Date/Time December 10, 2022 9:25p m [facility] Medical Records Department [address] [place] [address] H&P Exam - Hospitalist 12/10/222124 MR#: [id number] Acct: [id number] Name: KANDI CORREIA Rep #:[id number] : 1945 77 From: Burke Patterson MD PCP: Dr. Jalyn Smith MD Status:ADM I NO Location: [facility] HL557-5 HPI - General General Date of Admission: [...] that she is falling. 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 Further, she reports dark stools. Also had a before presentation she complained to her PCP of polyuria for which was started on antibiotics for UTI. Additionally has been confused. Her confusion has beenimproving. [facility] Medical History COPD (chronic obstructive [...] 74.0 H, Lymph % (Auto) 8.7 L, Hanson % (Auto) 12.0 H, Eos % (Auto) [...] Clarity Clear, Urine pH 7.0, Ur Specific [place] 1.010, Urine Protein 30 H, Urine Glucose [...] 19:19 EDT Reading Location ID and State: [facility] / [place] , Service support , Assessment & Plan Assessment/Plan (1) CATHI (acute kidney injury): (2) Diabetes mellitus: QUALIFIERS: Diabetes mellitus complication detail: with polyneuropathy Diabetes mellitus complication status: with neurologic complications Diabetes mellitus tank terminal gauger insulin use: without tank terminal gauger use Diabetes mellitus type: type 2 Qualified [...] prophylaxis: SCDs Charges/Coding Visit Charges Inpatient E&M: 16239 Init Hosp L3 12/11/22 0531 <Electronically signed by Burke Patterson MD> Cosigner Signature (if applicable): CC: Dr. Burke Patterson MD; Dr. Jalyn Smith MD~ Signed [facility] Work Phone: 1([phone]) [phone] Discharge summary Author Hector Fields [facility] December 10, 2022 10:58pm Note Date/Time December 10, 2022 6:17p m [facility] Medical Records Department [address] [place] [address] Emergency Department Summary 12/10/22 MR#: [id number] Acct: [id number] Name: KANDI CORREIA Rep #:[id number] : 1945 77 From: Hector Haas PCP: Dr. Jalyn Smith MD Status:ADM I NO Location: [place] [address] HPI History of Present Illness Chief Complaint: [...] 74.0 H Lymph % (Auto) 8.7 L Hanson % (Auto) 12.0 H Eos % (Auto) [...] Clarity Clear Urine pH 7.0 Ur Specific Pembroke 1.010 Urine Protein 30 H Urine Glucose [...] your Primary Care Provider. Call [facility] ([phone]) or report to the closest Emergency Room. Call 911 if necessary. 12/10/222257 <Electronically signed by Hector Fields DO> Cosigner Signature (if applicable): CC: Dr. Jalyn Smith MD ~ Signed [facility] Work Phone: 1(735) [phone] Discharge summary [facility] December 10, 2022 10:58pm Note Date/Time December 10, 2022 6:17p m [facility] Medical Records Department [address] [place] [address] Emergency Department Summary 12/10/22 MR#: [id number] Acct: [id number] Name: KANDI CORREIA Rep #:[id number] : 1945 77 From: Hector Haas PCP: Dr. Jalyn Smith MD Status:ADM I NO Location: [place] [address] HPI History of Present Illness Chief Complaint: [...] 74.0 H Lymph % (Auto) 8.7 L Hanson % (Auto) 12.0 H Eos % (Auto) [...] Clarity Clear Urine pH 7.0 Ur Specific P[place] 1.010 Urine Protein 30 H Urine Glucose [...] 19:19 EDT Reading Location ID and State: [facility] / [place] , Service support , I have personally [...] your Primary Care Provider. Call [facility] ([phone]) or report to the closest Emergency Room. Call 911 if necessary. 12/10/22 2186 <Electronically signed by Hector Fields DO> Cosigner Signature (if applicable): CC: Dr. Jalyn Smith MD ~ Signed [facility] Work Phone: [phone]) 446-720307-05-2023 History of Present illness Narrative* Jalyn Smith [...] PCP regarding patient. Patient was seen at [facility] this morning and [...] Lymph 1.00 - 4.00 k/uL 0.47 (L) Hanson% % 14.5 Abs Hanson <0.87 k/uL 1.50 (H) Eosin% % 0.6 [...] Negative Ketones, Urine Trace, Negative Negative Specific Pembroke, Ur 1.005 - 1.030 1.020 Hemoglobin/Blood,Ur Negative, [...] type - ICD9: 715.96, ICD10: M17.0 - NON[facility] 6. Anemia, unspecified type - ICD9: 285.9, ICD10: D64.9 7. Renal insufficiency - ICD9: 593.9, ICD10: N28.9 - BASIC METABOLIC PNL 8. Microscopic hematuria - ICD9: 599.72, ICD10: R31.29 9. Melena - ICD9: 578.1, ICD10: K92.1 Jalyn Smith MD documented in this encounterTrinity [facility]06-30-2023 Miscellaneous Notes* Telephone Encounter - Kalpana Sharif [...] Provider: Anthony RODRÍGUEZ PA-C documented in this encounterTrinity Health [facility]06-30-2023 Progress note Author Nisha Magallon [facility] December 05, 2022 1:14pm Note Date/Time December 05, 2022 1:14 pm [facility] [address] [place] [address] Progress Note - Wound Care 12/05/22 1312 MR#: [id number] Acct: [id number] Name: KANDI CORREIA Rep #:[id number] : 1945 77 From: Nisha Magallon DO [...] Date Recorded By Document 11/07/22 09:25 AK [id number] 11/07/22 09:27 AK Document 11/21/22 09:11 RB [id number] 11/21/22 09:13 RB Document 12/05/22 11:03 AK [id number] 12/05/22 11:05 AK 11/07/22 11/21/22 12/05/22 09:25 09:11 11:03 - Today's Visit Information Type of service Follow-up Visit Follow-up Visit Follow-up Visit (Physician/KILN STOKER (Physician/KILN STOKER (Physician/KILN STOKER ) ) ) Arrival Mode Ambulatory Ambulatory, [...] Date Recorded By Document 11/07/22 09:25 AK [id number] 11/07/22 09:27 AK Document 11/21/22 09:11 RB [id number] 11/21/22 09:13 RB Document 12/05/22 11:03 AK [id number] 12/05/22 11:05 AK 11/07/22 11/21/22 12/05/22 09:25 [...] Amt Large (67-100%) Medium (34-66%) -Granulation Quality Guadalupe Guadalupe -Slough/Fibrin Yes Yes -Necrosis Amt Small (1-33%) [...] Date Recorded By Document 11/07/22 10:03 MW [id number] 11/07/22 10:07 MW Document 11/21/22 09:34 MW [id number] 11/21/22 09:40 MW Document 12/05/22 09:37 JF [id number] 12/05/22 09:42 JF 11/07/22 11/21/22 12/05/22 10:03 [...] Date Recorded By Document 11/21/22 09:41 MW [id number] 11/21/22 09:42 MW Document 12/05/22 10:30 JF [id number] 12/05/22 10:31 JF 11/21/22 12/05/22 09:41 10:30 [...] Diabetes mellitus type: type 2 Diabetes mellitus prison insulin use: without residential use Diabetes mellitus complication status: with neurologic [...] symptoms worsen, or new symptoms arise. Note: PowerInbox speech recognition steward/stewardess tourist class software was used to create portions of this document. Sound-alike and misspelled words, as well as other steward/stewardess tourist class errors may be contained in the documentation. 12/05/22 1314 <Electronically signed by Nisha Magallon DO> Cosigner Signature (if applicable): CC: ~ Signed [facility] Work Phone: [phone]) 314-135706-30-2023 Miscellaneous Notes* Telephone Encounter - Tracy Peter [...] PCP regarding patient. Patient was seen at [facility] this morning and [...] today. Tracy Peter RN documented in this encounterTrinity Health [facility]06-16-2023 Progress note Author Nisha Magallon [facility] November 21, 2022 1:12pm Note Date/Time November 21, 2022 10:4 4am [facility] [address] [place] [address] Progress Note - Wound Care 11/21/22 1041 MR#: [id number] Acct: [id number] Name: KANDI CORREIA Rep #:[id number] : 1945 77 From: Nisha Magallon DO [...] Recorded Date Recorded By Document 11/07/22 09:25 ME [id number] 11/07/22 09:27 ME Document 11/21/22 09:11 RB [id number] 11/21/22 09:13 RB 11/07/22 11/21/22 09:25 09:11 - Today's Visit Information Type of service Follow-up Visit Follow-up Visit (Physician/KILN STOKER (Physician/KILN STOKER ) ) Arrival Mode Ambulatory Ambulatory, Walker [...] Recorded Date Recorded By Document 11/07/22 09:25 ME [id number] 11/07/22 09:27 AK Document 11/21/22 09:11 RB [id number] 11/21/22 09:13 RB 11/07/22 11/21/22 09:25 09:11 [...] Amt Large (67-100%) Medium (34-66%) -Granulation Quality Guadalupe Guadalupe -Slough/Fibrin Yes Yes -Necrosis Amt Small (1-33%) [...] Date Recorded By Document 11/07/22 10:03 MW [id number] 11/07/22 10:07 MW Document 11/21/22 09:34 MW [id number] 11/21/22 09:40 MW 11/07/22 11/21/22 10:03 09:34 [...] Date Recorded By Document 11/21/22 09:41 MW [id number] 11/21/22 09:42 MW 11/21/22 09:41 Wound Care [...] complication status: with neurologic complications Diabetes mellitus tank terminal gauger insulin use: without tank terminal gauger use Diabetes mellitus type: type 2 Qualified [...] symptoms worsen, or new symptoms arise. Note: PowerInbox speech recognition steward/stewardess tourist class software was used to create portions of this document. Sound-alike and misspelled words, as well as other steward/stewardess tourist class errors may be contained in the documentation. 11/21/22 1312 <Electronically signed by Nisha Magallon DO> Cosigner Signature (if applicable): CC: ~ Signed [facility] Work Phone: [phone]) 792-475006-08-2023 History of Present illness Narrative* Selene Anaya [...] food insecurity completed: no documented in this encounterTrinity Health [facility]06-02-2023 Progress note Author Nisha Magallon [facility] November 07, 2022 1:43pm Note Date/Time November 07, 2022 1:43p [facility] [address] [place] [address] Progress Note - Wound Care 11/07/22 1337 MR#: [id number] Acct: [id number] Name: KANDI CORREIA Rep #:[id number] : 1945 77 From: Nisha Magallon DO [...] Date Recorded By Document 11/07/22 09:25 FAIZAN [id number] 11/07/22 09:27 FAIZAN 11/07/22 09:25 WC - Today's Visit Information Type of service Follow-up Visit (Physician/KILN STOKER ) Arrival Mode Ambulatory Patient Identification Verified [...] Date Recorded By Document 11/07/22 09:25 FAIZAN [id number] 11/07/22 09:27 FAIZAN 11/07/22 09:25 Wound Center [...] Attached -Granulation Amt Large (67-100%) -Granulation Quality Guadalupe -Slough/Fibrin Yes -Necrosis Amt Small (1-33%) -Structure [...] Date Recorded By Document 11/07/22 10:03 MW [id number] 11/07/22 10:07 MW 11/07/22 10:03 Wound Center [...] Diabetes mellitus type: type 2 Diabetes mellitus prison insulin use: without tank terminal gauger use Diabetes mellitus complication status: with neurologic [...] symptoms worsen, or new symptoms arise. Note: PowerInbox speech recognition steward/stewardess tourist class software was used to create portions of this document. Sound-alike and misspelled words, as well as other steward/stewardess tourist class errors may be contained in the documentation. 11/07/22 1343 <Electronically signed by Nisha Magallon DO> Cosigner Signature (if applicable): CC: ~ Signed [facility] Work Phone: [phone]) 591-621605-19-[address] Magallon [facility] October 24, 2022 3:11pm Note Date/Time October 24, 2022 3:11p [facility] [address] [place] [address] Progress Note - Wound Care 10/24/22 1509 MR#: [id number] Acct: [id number] Name: KANDI CORREIA Rep #:[id number] : 1945 77 From: Nisha Magallon DO [...] Date Recorded By Document 10/10/22 08:56 JF [id number] 10/10/22 09:10 JF Document 10/17/22 09:14 RB [id number] 10/17/22 09:22 RB Document 10/24/22 09:16 BM [id number] 10/24/22 09:24 BM 10/10/22 10/17/22 10/24/22 08:56 09:14 09:16 WC - Today's Visit Information Type of service Follow-up Visit Follow-up Visit Follow-up Visit (Physician/KILN STOKER (Physician/KILN STOKER (Physician/KILN STOKER ) ) ) Arrival Mode Ambulatory, Ambulatory, [...] Recorded Date Recorded By Document 10/10/22 08:56 [id number] 10/10/22 09:10 JF Document 10/17/22 09:14 RB [id number] 10/17/22 09:22 RB Document 10/24/22 09:16 [facility] [id number] 10/24/22 09:24 BM 10/10/22 10/17/22 10/24/22 08:56 [...] (67-100%) Medium (34-66%) Large (67-100%) -Granulation Quality Guadalupe Guadalupe Red -Slough/Fibrin Yes Yes No -Necrosis Amt [...] Date Recorded By Document 10/10/22 09:38 MW [id number] 10/10/22 09:51 MW Document 10/17/22 09:28 MW [id number] 10/17/22 09:39 MW Document 10/24/22 09:41 JF [id number] 10/24/22 09:45 JF 10/10/22 10/17/22 10/24/22 09:38 [...] -Expiration Date 07/09/27 04/08/27 -Product Lot Number [id number] -Percent Used 100 100 -Lot number of Saline Used [id number] -Bleeding Controlled with Pressure Pressure Pressure -Treatment [...] Recorded Date Recorded By Document 10/10/22 10:24 [id number] 10/10/22 10:24 Document 10/17/22 09:49 RB [id number] 10/17/22 09:50 RB Document 10/24/22 09:56 RB [id number] 10/24/22 09:58 RB 10/10/22 10/17/22 10/24/22 10:24 [...] Diabetes mellitus type: type 2 Diabetes mellitus prison insulin use: without residential use Diabetes mellitus complication status: with neurologic [...] symptoms worsen, or new symptoms arise. Note: PowerInbox speech recognition steward/stewardess tourist class software was used to create portions of this document. Sound-alike and misspelled words, as well as other steward/stewardess tourist class errors may be contained in the documentation. 10/24/22 1511 <Electronically signed by Nisha Magallon DO> Cosigner Signature (if applicable): CC: ~ Signed [facility] Work Phone: 1(610) 784-964705-12-[address] Magallon [facility] October 17, 2022 2:06pm Note Date/Time October 17, 2022 2:06p [facility] [address] [place] [address] Progress Note - Wound Care 10/17/22 1401 MR#: [id number] Acct: [id number] Name: KANDI CORREIA Rep #:[id number] : 1945 77 From: Nisha Magallon DO [...] Recorded Date Recorded By Document 10/10/22 08:56 [id number] 10/10/22 09:10 Document 10/17/22 09:14 RB [id number] 10/17/22 09:22 RB 10/10/22 10/17/22 08:56 09:14 - Today's Visit Information Type of service Follow-up Visit Follow-up Visit (Physician/KILN STOKER (Physician/KILN STOKER ) ) Arrival Mode Ambulatory, Ambulatory, Walker [...] Date Recorded By Document 10/10/22 08:56 JF [id number] 10/10/22 09:10 JF Document 10/17/22 09:14 RB [id number] 10/17/22 09:22 RB 10/10/22 10/17/22 08:56 09:14 [...] Amt Large (67-100%) Medium (34-66%) -Granulation Quality Guadalupe Guadalupe -Slough/Fibrin Yes Yes -Necrosis Amt Small (1-33%) [...] Date Recorded By Document 10/10/22 09:38 MW [id number] 10/10/22 09:51 MW Document 10/17/22 09:28 MW [id number] 10/17/22 09:39 MW 10/10/22 10/17/22 09:38 09:28 [...] -Expiration Date 07/09/27 04/08/27 -Product Lot Number [id number] -Percent Used 100 100 -Lot number of Saline Used [id number] -Bleeding Controlled with Pressure Pressure -Treatment Response [...] Date Recorded By Document 10/10/22 10:24 SHARON [id number] 10/10/22 10:24 JF Document 10/17/22 09:49 RB [id number] 10/17/22 09:50 RB 10/10/22 10/17/22 10:24 09:49 [...] Diabetes mellitus type: type 2 Diabetes mellitus prison insulin use: without residential use Diabetes mellitus complication status: with neurologic [...] her right posterior LE ulcer today per prepress proofer guidelines using 100% of product, rehydrated with [...] symptoms worsen, or new symptoms arise. Note: PowerInbox speech recognition steward/stewardess tourist class software was used to create portions of this document. Sound-alike and misspelled words, as well as other steward/stewardess tourist class errors may be contained in the documentation. 10/17/22 1404 <Electronically signed by Nisha Magallon DO> Cosigner Signature (if applicable): CC: ~ Signed [facility] Work Phone: 1(903) 861-215305-05-[address] Magallon [facility] October 10, 2022 2:00pm Note Date/Time October 10, 2022 1:59pm [facility] [address] [place] [address] Progress Note - Wound Care 10/10/22 1357 MR#: [id number] Acct: [id number] Name: KANDI CORREIA Rep #:[id number] : 1945 77 From: Nisha Magallon DO [...] Recorded Date Recorded By Document 10/10/22 08:56 [id number] 10/10/22 09:10 10/10/22 08:56 - Today's Visit Information Type of service Follow-up Visit (Physician/KILN STOKER ) Arrival Mode Ambulatory, Walker Accompanied by [...] Recorded Date Recorded By Document 10/10/22 08:56 [id number] 10/10/22 09:10 SHARON 10/10/22 08:56 Wound Center [...] Intact -Granulation Amt Large (67-100%) -Granulation Quality Guadalupe -Slough/Fibrin Yes -Necrosis Amt Small (1-33%) -Necrotic [...] Date Recorded By Document 10/10/22 09:38 MW [id number] 10/10/22 09:51 MW 10/10/22 09:38 Wound Center [...] Mesh -Expiration Date 07/09/27 -Product Lot Number [id number] -Percent Used 100 -Lot number of Saline Used [id number] -Bleeding Controlled with Pressure -Treatment Response Procedure [...] Date Recorded By Document 10/10/22 10:24 SHARON [id number] 10/10/22 10:24 SHARON 10/10/22 10:24 Wound Care [...] Diabetes mellitus type: type 2 Diabetes mellitus prison insulin use: without tank terminal gauger use Diabetes mellitus complication status: with neurologic [...] her right posterior LE ulcer today per prepress proofer guidelines using 100% of product, rehydrated with [...] symptoms worsen, or new symptoms arise. Note: PowerInbox speech recognition steward/stewardess tourist class software was used to create portions of this document. Sound-alike and misspelled words, as well as other steward/stewardess tourist class errors may be contained in the documentation. 10/10/22 1400 <Electronically signed by Nisha Magallon DO> Cosigner Signature (if applicable): CC: ~ Signed [facility] Work Phone: 1(332) 387-889805-01-2023 History of Present illness Narrative* Darlene Urbano RN - 10/15/2022 9:28 AM EDT [facility] Telephonic Outreach Provider Action/FYI Patient reports going [...] to talk about today? Yes Based on corporate consultant, the following disposition is advised: Symptoms present, not severe. Routed to: No Action Needed SAMMY Education Provided this Outreach: No Darlene Urbano RN October 15, 2022 10:08 AM * Darlene Urbano RN - 10/14/2022 2:04 PM EDT [facility] Telephonic Outreach Provider Action/FYI Contacted for: Routine Telephonic Outreach Contact made with patient: No, left message. Darlene Urbano RN October 14, 2022 2:16 PM documented in this encounterTrinity Health [facility]05-01-2023 Miscellaneous Notes* Telephone Encounter - Darlene Urbano RN - 10/15/2022 10:13 AM EDT Patient phones requesting refills as follows: Requested Prescriptions Pending Prescriptions Disp Refills albuterol HFA (VENTOLIN HFA) 90 mcg/actuation inhaler 18 g 3 Sig: Inhale 2 Puffs as instructed every 4 hours as needed for wheezing/shortness of breath. Please review and advise. Darlene Urbano RN documented in this encounterTrinity Health [facility]04-28-[address] Magallon [facility] October 03, 2022 11:20am Note Date/Time October 03, 2022 11: 20am [facility] [address] [place] [address] Progress Note - Wound Care 10/03/22 1108 MR#: [id number] Acct: [id number] Name: KANDI CORREIA Rep #:[id number] : 1945 77 From: Nisha Magallon DO [...] Date Recorded By Document 09/12/22 08:27 MT [id number] 09/12/22 08:41 MT Document 09/19/22 08:28 RB [id number] 09/19/22 08:35 RB Document 09/26/22 08:51 RB [id number] 09/26/22 08:53 RB Edit Result 09/26/22 08:51 RB (1) [id number] 09/26/22 08:55 RB Document 10/03/22 08:32 DL Desktop 10/03/22 08:36 DL (1) Respiratory Rate (12-18) 18 => 20 H O2 L/MIN (L/min) => 2 09/12/22 09/19/22 09/26/22 08:27 08:28 08:51 WC - Today's Visit Information Type of service Follow-up Visit Follow-up Visit Follow-up Visit (Physician/KILN STOKER (Physician/KILN STOKER (Physician/KILN STOKER ) ) ) Arrival Mode Ambulatory, Ambulatory [...] Visit Information Type of service Follow-up Visit (Physician/KILN STOKER ) Arrival Mode Ambulatory, Walker Transfer Assistance [...] Date Recorded By Document 09/12/22 08:27 MT [id number] 09/12/22 08:41 MT Document 09/19/22 08:28 RB [id number] 09/19/22 08:35 RB Document 09/26/22 08:51 RB [id number] 09/26/22 08:53 RB Document 10/03/22 08:32 DL [...] Attached -Granulation Amt Medium (34-66%) -Granulation Quality Guadalupe -Slough/Fibrin Yes -Necrosis Amt Medium (34-66%) -Necrotic [...] Amt Medium (34-66%) Medium (34-66%) -Granulation Quality Gu[place]upe Guadalupe -Slough/Fibrin Yes Yes -Necrosis Amt Large (67-100%) [...] Attached -Granulation Amt Medium (34-66%) -Granulation Quality [place]upe -Slough/Fibrin -Necrosis Amt Medium (34-66%) -Necrotic Tissue [...] 09/12/22 09:19 MW Document 09/19/22 09:18 MW [id number] 09/19/22 09:33 MW Document 09/26/22 09:01 MW [id number] 09/26/22 09:17 MW Document 10/03/22 08:51 MW [...] Date 05/08/27 05/08/27 05/08/27 -Product Lot Number [id number] 016 -Percent Used 100 100 100 -Lot number of Saline Used [id number] -Bleeding Controlled with Pressure Pressure Pressure -Treatment [...] Mesh -Expiration Date 07/09/27 -Product Lot Number [id number] -Percent Used 100 -Lot number of Saline Used [id number] -Bleeding Controlled with Pressure -Treatment Response Procedure [...] 09/12/22 09:24 MW Document 09/19/22 09:39 RB [id number] 09/19/22 09:40 RB Document 09/26/22 09:27 RB [id number] 04/21/23 09:28 RB 09/12/22 09/19/22 09/26/22 09:20 [...] Diabetes mellitus type: type 2 Diabetes mellitus prison insulin use: without tank terminal gauger use Diabetes mellitus complication status: with neurologic [...] her right posterior LE ulcer today per prepress proofer guidelines using 100% of product, rehydrated with [...] symptoms worsen, or new symptoms arise. Note: PowerInbox speech recognition steward/stewardess tourist class software was used to create portions of this document. Sound-alike and misspelled words, as well as other steward/stewardess tourist class errors may be contained in the documentation. 10/03/22 1120 <Electronically signed by Nisha Magallon DO> Cosigner Signature (if applicable): CC: ~ Signed [facility] Work Phone: 1(345) 965-583804-26-2023 History of Present illness Narrative* Jalyn Smith [...] SCRN Jalyn Smith MD [facility] Magallon [facility] September 26, 2022 9:46am Note Date/Time September 26, 2022 9:4 6am [facility] [address] [place] [address] Progress Note - Wound Care 09/26/22 0943 MR#: [id number] Acct: [id number] Name: KANDI CORREIA Rep #:[id number] : 1945 77 From: Nisha Magallon DO [...] Date Recorded By Document 09/12/22 08:27 MT [id number] 09/12/22 08:41 MT Document 09/19/22 08:28 RB [id number] 09/19/22 08:35 RB Document 09/26/22 08:51 RB [id number] 09/26/22 08:53 RB Edit Result 09/26/22 08:51 RB (1) [id number] 09/26/22 08:55 RB (1) Respiratory Rate (12-18) 18 => 20 H O2 L/MIN (L/min) => 2 09/12/22 09/19/22 09/26/22 08:27 08:28 08:51 WC - Today's Visit Information Type of service Follow-up Visit Follow-up Visit Follow-up Visit (Physician/KILN STOKER (Physician/KILN STOKER (Physician/KILN STOKER ) ) ) Arrival Mode Ambulatory, Ambulatory [...] Date Recorded By Document 09/12/22 08:27 MT [id number] 09/12/22 08:41 MT Document 09/19/22 08:28 RB [id number] 09/19/22 08:35 RB Document 09/26/22 08:51 RB [id number] 09/26/22 08:53 RB 09/12/22 09/19/22 09/26/22 08:27 [...] Attached -Granulation Amt Medium (34-66%) -Granulation Quality [place]adalupe -Slough/Fibrin Yes -Necrosis Amt Medium (34-66%) -Necrotic [...] Amt Medium (34-66%) Medium (34-66%) -Granulation Quality Gu[place]upe Guadalupe -Slough/Fibrin Yes Yes -Necrosis Amt Large (67-100%) [...] 09/12/22 09:19 MW Document 09/19/22 09:18 MW [id number] 09/19/22 09:33 MW Document 09/26/22 09:01 MW [id number] 09/26/22 09:17 MW 09/12/22 09/19/22 09/26/22 08:45 [...] Date 05/08/27 05/08/27 05/08/27 -Product Lot Number [id number] 016 -Percent Used 100 100 100 -Lot number of Saline Used [id number] -Bleeding Controlled with Pressure Pressure Pressure -Treatment [...] 09/12/22 09:24 MW Document 09/19/22 09:39 RB [id number] 09/19/22 09:40 RB Document 09/26/22 09:27 RB [id number] 09/26/22 09:28 RB 09/12/22 09/19/22 09/26/22 09:20 [...] Diabetes mellitus type: type 2 Diabetes mellitus prison insulin use: without residential use Diabetes mellitus complication status: with neurologic [...] her right posterior LE ulcer today per prepress proofer guidelines using 100% of product, rehydrated with [...] symptoms worsen, or new symptoms arise. Note: PowerInbox speech recognition steward/stewardess tourist class software was used to create portions of this document. Sound-alike and misspelled words, as well as other steward/stewardess tourist class errors may be contained in the documentation. 09/26/22 0946 <Electronically signed by Nisha Magallon DO> Cosigner Signature (if applicable): CC: ~ Signed [facility] Work Phone: [phone]) 761-858204-14-[address] Magallon [facility] September 19, 2022 2:59pm Note Date/Time September 19, 2022 2:3 9pm [facility] [address] [place] [address] Progress Note - Wound Care 09/19/22 1436 MR#: [id number] Acct: [id number] Name: KANDI CORREIA Rep #:[id number] : 1945 77 From: Nisha Magallon DO [...] Start: 09/12/22 08:26 Freq: Status: Active Protocol: DASH.TelogisStu Activity Type Activity Date Activity User E-sign Co-sign Detail Recorded Client Recorded Date Recorded By Document 09/12/22 08:27 MT [id number] 09/12/22 08:41 MT Document 09/19/22 08:28 RB [id number] 09/19/22 08:35 RB 09/12/22 09/19/22 08:27 08:28 - Today's Visit Information Type of service Follow-up Visit Follow-up Visit (Physician/KILN STOKER (Physician/KILN STOKER ) ) Arrival Mode Ambulatory, Ambulatory Wheelchair [...] Date Recorded By Document 09/12/22 08:27 MT [id number] 09/12/22 08:41 MT Document 09/19/22 08:28 RB [id number] 09/19/22 08:35 RB 09/12/22 09/19/22 08:27 08:28 [...] Attached -Granulation Amt Medium (34-66%) -Granulation Quality Guadalupe -Slough/Fibrin Yes -Necrosis Amt Medium (34-66%) -Necrotic [...] Attached -Granulation Amt Medium (34-66%) -Granulation Quality [place]upe -Slough/Fibrin Yes -Necrosis Amt Large (67-100%) Medium [...] 09/12/22 09:19 MW Document 09/19/22 09:18 MW [id number] 09/19/22 09:33 MW 09/12/22 09/19/22 08:45 09:18 [...] -Expiration Date 05/08/27 05/08/27 -Product Lot Number [id number] -Percent Used 100 100 -Lot number of Saline Used [id number] -Bleeding Controlled with Pressure Pressure -Treatment Response [...] 09/12/22 09:24 MW Document 09/19/22 09:39 RB [id number] 09/19/22 09:40 RB 09/12/22 09/19/22 09:20 09:39 [...] Diabetes mellitus type: type 2 Diabetes mellitus prison insulin use: without tank terminal gauger use Diabetes mellitus complication status: with neurologic [...] her right posterior LE ulcer today per prepress proofer guidelines using 100% of product, rehydrated with [...] symptoms worsen, or new symptoms arise. Note: PowerInbox speech recognition steward/stewardess tourist class software was used to create portions of this document. Sound-alike and misspelled words, as well as other steward/stewardess tourist class errors may be contained in the documentation. 09/19/22 3065 <Electronically signed by Nisha Magallon DO> Cosigner Signature (if applicable): CC: ~ Signed [facility] Work Phone: [phone]) 251-449704-14-2023 Miscellaneous Notes* Telephone Encounter - Amol Sinha RN - 09/19/2022 1:48 PM EDT [facility] Provider Action/FYI:Pt stated she has an appt with [facility] and don't know if her insurance will cover her. Informed pt to call her insurance company or call [facility] to see if they take her insurance. Pt stated understanding. Poonam, you've reached [facility], my name is Amol Sinha [...] please call us back. documented in this [facility]Tr[facility]04-07-[address] Magallon [facility] September 12, 2022 2:08pm Note Date/Time September 12, 2022 2:08 pm [facility] [address] [place] [address] [place] [address] Progress Note - Wound Care 09/12/22 1406 MR#: [id number] Acct: [id number] Name: KANDI CORREIA Rep #:[id number] : 1945 77 From: Nisha Magallon DO [...] Recorded Date Recorded By Document 09/12/22 08:27 NE [id number] 09/12/22 08:41 MT 09/12/22 08:27 - Today's Visit Information Type of service Follow-up Visit (Physician/KILN STOKER ) Arrival Mode Ambulatory, Wheelchair Accompanied by [...] Recorded Date Recorded By Document 09/12/22 08:27 NE [id number] 09/12/22 08:41 MT 09/12/22 08:27 Wound Center [...] Mesh -Expiration Date 05/08/27 -Product Lot Number [id number] -Percent Used 100 -Lot number of Saline Used [id number] -Bleeding Controlled with Pressure -Treatment Response Procedure [...] Diabetes mellitus type: type 2 Diabetes mellitus prison insulin use: without tank terminal gauger use Diabetes mellitus complication status: with neurologic [...] her right posterior LE ulcer today per prepress proofer guidelines using 100% of product, rehydrated with [...] symptoms worsen, or new symptoms arise. Note: PowerInbox speech recognition steward/stewardess tourist class software was used to create portions of this document. Sound-alike and misspelled words, as well as other steward/stewardess tourist class errors may be contained in the documentation. 04/07/23 1408 <Electronically signed by Nisha Magallon DO> Cosigner Signature (if applicable): CC: ~ Signed [facility] Work Phone: [phone]) 449-756704-06-2023 History of Present illness Narrative* Leslie Chapman MA - 09/11/2022 3:13 PM EDT POPULATION HEALTH NAVIGATION OUTREACH Action/FYI September 11, 2022 Patient needs a 6 month follow up- 01/14/2023 Outcome/Action Lm on [facility] letter sent Leslie Chapman MA Patient Identified by Name and : NO Outreach Outcome/Action Unable to reach patient: Left message [employer] message sent Did you use a PCP flex slot to schedule this appointment? N/A Reason for Outreach [facility] Payer: Payor: [employer] MEDICARE / Plan: HU[employer] [...] with further orders/instructions. Thank you, Erin Urbano RNprinted circuit board preassemblerDamper Worker Community Monitoring PSS Pool: Please assist patient [...] like to speak with a social work merchandise flow team leader to help give you support [...] you up for automated weekly questionnaires through [employer]. This is an easy way for us [...] PtOutreach and End outreach. documented in this encounterTr[facility]03-31-[address] Magallon [facility] September 05, 2022 2:07pm Note Date/Time September 05, 2022 2:0 7pm [facility] [address] [place] [address] Progress Note - Wound Care 09/05/22 1405 MR#: [id number] Acct: [id number] Name: KANDI CORREIA Rep #:[id number] : 1945 77 From: Nisha Magallon DO [...] Date Recorded By Document 08/08/22 08:59 DL [id number] 08/08/22 09:08 DL Document 08/15/22 08:39 BMF [id number] 03/10/23 08:45 BMF Document 08/22/22 09:04 DL [id number] 08/22/22 09:14 DL Document 08/29/22 08:27 RB Desktop 08/29/22 08:41 RB Document 09/05/22 09:13 RB [id number] 09/05/22 09:26 RB 08/08/22 08/15/22 08/22/22 08:59 08:39 09:04 WC - Today's Visit Information Type of service Follow-up Visit Follow-up Visit Follow-up Visit (Physician/KILN STOKER (Physician/KILN STOKER (Physician/KILN STOKER ) ) ) Arrival Mode Ambulatory, Ambulatory, [...] Type of service Follow-up Visit Follow-up Visit (Physician/KILN STOKER (Physician/KILN STOKER ) ) Arrival Mode Ambulatory, Ambulatory, Walker [...] Date Recorded By Document 08/08/22 08:59 DL [id number] 08/08/22 09:08 DL Document 08/15/22 08:39 BMF [id number] 08/15/22 08:45 BMF Document 08/22/22 09:04 DL [id number] 08/22/22 09:14 DL Document 08/29/22 08:27 RB Desktop 08/29/22 08:41 RB Document 09/05/22 09:13 RB [id number] 09/05/22 09:26 RB 08/08/22 08/15/22 08/22/22 08:59 [...] (67-100%) Medium (34-66%) %) -Granulation Quality Red Guadalupe -Slough/Fibrin Yes -Necrosis Amt Large (67-100%) Small [...] (1-33%) Medium (34-66%) %) -Granulation Quality Red [place] -Slough/Fibrin Yes -Necrosis Amt Large (67-100%) Large [...] Amt Medium (34-66%) Medium (34-66%) -Granulation Quality [place]upe -Slough/Fibrin Yes Yes -Necrosis Amt Medium (34-66%) [...] Attached -Granulation Amt Medium (34-66%) -Granulation Quality [place]upe -Slough/Fibrin Yes -Necrosis Amt Medium (34-66%) Medium [...] Date Recorded By Document 08/08/22 09:38 MW [id number] 08/08/22 10:13 MW Document 08/15/22 08:54 BMF [id number] 08/15/22 09:17 BMF Edit Result 08/15/22 08:54 BMF (1) [id number] 08/15/22 12:45 PL Edit Result 08/15/22 08:54 BMF (2) [id number] 08/18/22 07:11 PL Document 08/22/22 09:28 MW [id number] 08/22/22 09:50 MW Document 08/29/22 09:10 MW [id number] 08/29/22 09:48 MW Document 09/05/22 09:30 MW [id number] 09/05/22 09:52 MW (1) #3 L POST [...] -Expiration Date 03/08/27 05/08/27 -Product Lot Number [id number] 024 -Percent Used 100 100 -Lot number of Saline Used [id number] -Topical Lidocaine (%) 5 -Bleeding Controlled with [...] Date 05/08/27 05/08/27 -Product Lot Number 100 [id number] -Percent Used 100 100 -Lot number of Saline Used [id number] -Topical Lidocaine (%) -Bleeding Controlled with Pressure [...] Date Recorded By Document 08/08/22 10:26 DL [id number] 08/08/22 10:34 DL Document 08/15/22 09:28 ML [id number] 08/15/22 09:29 ML Document 08/22/22 10:09 RB [id number] 08/22/22 10:11 RB Document 08/29/22 10:06 [facility] [id number] 08/29/22 10:07 [facility] Document 09/05/22 10:08 DL [id number] 09/05/22 10:10 DL 08/08/22 08/15/22 08/22/22 10:26 [...] Ambulatory Status Ambulatory, Ambulatory Walker Transportation [employer] Accompanied by Medication Reconcilliation completed & [...] Diabetes mellitus type: type 2 Diabetes mellitus prison insulin use: without tank terminal gauger use Diabetes mellitus complication status: with neurologic [...] her right posterior LE ulcer today per prepress proofer guidelines using 100% of product, rehydrated with [...] symptoms worsen, or new symptoms arise. Note: PowerInbox speech recognition steward/stewardess tourist class software was used to create portions of this document. Sound-alike and misspelled words, as well as other steward/stewardess tourist class errors may be contained in the documentation. 09/05/22 1407 <Electronically signed by Nisha Magallon DO> Cosigner Signature (if applicable): CC: ~ Signed [facility] Work Phone: [phone]) 588-711403-31-[address] Magallon [facility] September 05, 2022 2:05pm Note Date/Time August 29, 2022 1:0 5pm [facility] [address] [place] [address] Progress Note - Wound Care 08/29/22 1305 MR#: [id number] Acct: [id number] Name: KANDI CORREIA Rep #:[id number] : 1945 76 From: Nisha Magallon DO [...] Date Recorded By Document 08/08/22 08:59 DL [id number] 08/08/22 09:08 DL Document 08/15/22 08:39 BMF [id number] 08/15/22 08:45 BMF Document 08/22/22 09:04 DL [id number] 08/22/22 09:14 DL Document 08/29/22 08:27 RB Desktop 08/29/22 08:41 RB 08/08/22 08/15/22 08/22/22 08:59 08:39 09:04 - Today's Visit Information Type of service Follow-up Visit Follow-up Visit Follow-up Visit (Physician/KILN STOKER (Physician/KILN STOKER (Physician/KILN STOKER ) ) ) Arrival Mode Ambulatory, Ambulatory, [...] Visit Information Type of service Follow-up Visit (Physician/KILN STOKER ) Arrival Mode Ambulatory, Walker Transfer Assistance [...] Date Recorded By Document 03/03/23 08:59 DL [id number] 08/08/22 09:08 DL Document 08/15/22 08:39 BMF [id number] 08/15/22 08:45 BMF Document 08/22/22 09:04 DL [id number] 08/22/22 09:14 DL Document 08/29/22 08:27 RB [...] (67-100%) Medium (34-66%) %) -Granulation Quality Red [place]upe -Slough/Fibrin Yes -Necrosis Amt Large (67-100%) Small [...] (1-33%) Medium (34-66%) %) -Granulation Quality Red [place] -Slough/Fibrin Yes -Necrosis Amt Large (67-100%) Large [...] Attached -Granulation Amt Medium (34-66%) -Granulation Quality [place]upe -Slough/Fibrin Yes -Necrosis Amt Medium (34-66%) -Necrotic [...] Attached -Granulation Amt Medium (34-66%) -Granulation Quality [place]upe -Slough/Fibrin Yes -Necrosis Amt Medium (34-66%) -Necrotic [...] Date Recorded By Document 08/08/22 09:38 MW [id number] 08/08/22 10:13 MW Document 08/15/22 08:54 BMF [id number] 08/15/22 09:17 BMF Edit Result 03/10/23 08:54 BMF (1) [id number] 08/15/22 12:45 PL Edit Result 08/15/22 08:54 BMF (2) [id number] 08/18/22 07:11 PL Document 08/22/22 09:28 MW [id number] 08/22/22 09:50 MW Document 08/29/22 09:10 MW [id number] 08/29/22 09:48 MW (1) #3 L POST [...] -Expiration Date 03/08/27 05/08/27 -Product Lot Number [id number] -Percent Used 100 100 -Lot number of Saline Used [id number] -Topical Lidocaine (%) 5 -Bleeding Controlled with [...] Used 100 -Lot number of Saline Used [id number] -Topical Lidocaine (%) -Bleeding Controlled with Pressure [...] Date Recorded By Document 08/08/22 10:26 DL [id number] 08/08/22 10:34 DL Document 08/15/22 09:28 ML [id number] 08/15/22 09:29 ML Document 08/22/22 10:09 RB [id number] 08/22/22 10:11 RB Document 08/29/22 10:06 [facility] [id number] 08/29/22 10:07 BMF 08/08/22 08/15/22 08/22/22 10:26 [...] complication status: with neurologic complications Diabetes mellitus residential insulin use: without tank terminal gauger use Diabetes mellitus type: type 2 Qualified [...] her right posterior LE ulcer today per prepress proofer guidelines using 100% of product, rehydrated with [...] symptoms worsen, or new symptoms arise. Note: [employer]Inbox speech recognition steward/stewardess tourist class software was used to create portions of this document. Sound-alike and misspelled words, as well as other steward/stewardess tourist class errors may be contained in the documentation. 09/05/22 1405 <Electronically signed by Nisha Magallon DO> Cosigner Signature (if applicable): CC: ~ Signed [facility] Work Phone: [phone] Miscellaneous Notes* Telephone Encounter - Pema Nayak [...] and she can see Dr. Darby in [place] at that time? If OK with pt ----- Message ----- From: Pema Nayak Sent: 08/27/2022 12:25 PM EDT To: Herminia Carrera APRN.CNP, * /Nila Pt. She called wanting to schedule for a f/up, is there additional testing that needs done AND can she do a virtual/phone visit? documented in this encounterTr[facility]03-17-[address] Magallon [facility] August 22, 2022 1:45pm Note Date/Time August 22, 2022 1:4 5pm [facility] [address] [place] [address] Progress Note - Wound Care 08/22/22 1341 MR#: [id number] Acct: [id number] Name: KANDI CORREIA Rep #:[id number] : 1945 76 From: Nisha Magallon DO [...] Date Recorded By Document 08/08/22 08:59 DL [id number] 08/08/22 09:08 DL Document 08/15/22 08:39 [facility] [id number] 08/15/22 08:45 BMF Document 08/22/22 09:04 DL [id number] 08/22/22 09:14 DL 08/08/22 08/15/22 08/22/22 08:59 08:39 09:04 WC - Today's Visit Information Type of service Follow-up Visit Follow-up Visit Follow-up Visit (Physician/KILN STOKER (Physician/KILN STOKER (Physician/KILN STOKER ) ) ) Arrival Mode Ambulatory, Ambulatory, [...] Date Recorded By Document 08/08/22 08:59 DL [id number] 08/08/22 09:08 DL Document 08/15/22 08:39 BMF [id number] 08/15/22 08:45 BMF Document 08/22/22 09:04 DL [id number] 08/22/22 09:14 DL 08/08/22 08/15/22 08/22/22 08:59 [...] (67-100%) Medium (34-66%) %) -Granulation Quality Red [place] -Slough/Fibrin Yes -Necrosis Amt Large (67-100%) Small [...] (1-33%) Medium (34-66%) %) -Granulation Quality Red [place] -Slough/Fibrin Yes -Necrosis Amt Large (67-100%) Large [...] Date Recorded By Document 08/08/22 09:38 MW [id number] 08/08/22 10:13 MW Document 08/15/22 08:54 BMF [id number] 08/15/22 09:17 BMF Edit Result 08/15/22 08:54 BMF (1) [id number] 08/15/22 12:45 PL Edit Result 08/15/22 08:54 BMF (2) [id number] 08/18/22 07:11 PL Document 08/22/22 09:28 MW [id number] 08/22/22 09:50 MW (1) #3 L POST [...] -Expiration Date 03/08/27 05/08/27 -Product Lot Number [id number] -Percent Used 100 100 -Lot number of Saline Used [id number] -Topical Lidocaine (%) 5 -Bleeding Controlled with [...] Date Recorded By Document 08/08/22 10:26 DL [id number] 08/08/22 10:34 DL Document 08/15/22 09:28 ML [id number] 08/15/22 09:29 ML Document 08/22/22 10:09 RB [id number] 08/22/22 10:11 RB 08/08/22 08/15/22 08/22/22 10:26 [...] Diabetes mellitus type: type 2 Diabetes mellitus prison insulin use: without residential use Diabetes mellitus complication status: with neurologic [...] her right posterior LE ulcer today per prepress proofer guidelines using 100% of product, rehydrated with [...] symptoms worsen, or new symptoms arise. Note: [employer] speech recognition steward/stewardess tourist class software was used to create portions of this document. Sound-alike and misspelled words, as well as other steward/stewardess tourist class errors may be contained in the documentation. 08/22/22 1345 <Electronically signed by Nisha Magallon DO> Cosigner Signature (if applicable): CC: ~ Signed [facility] Work Phone: [phone]) 392-387203-10-[address] Magallon [facility] August 15, 2022 12:50pm Note Date/Time August 15, 2022 11: 58am [facility] [address] [place] [address] Progress Note - Wound Care 08/15/22 1157 MR#: [id number] Acct: [id number] Name: KANDI CORREIA Rep #:[id number] : 1945 76 From: Nisha Magallon DO [...] Date Recorded By Document 08/08/22 08:59 DL [id number] 08/08/22 09:08 DL Document 08/15/22 08:39 [facility] [id number] 08/15/22 08:45 BM 08/08/22 08/15/22 08:59 08:39 - Today's Visit Information Type of service Follow-up Visit Follow-up Visit (Physician/KILN STOKER (Physician/KILN STOKER ) ) Arrival Mode Ambulatory, Ambulatory, Walker [...] Date Recorded By Document 08/08/22 08:59 DL [id number] 08/08/22 09:08 DL Document 08/15/22 08:39 [facility] [id number] 08/15/22 08:45 [facility] 08/08/22 08/15/22 08:59 08:39 Wound Center Nurse [...] Date Recorded By Document 08/08/22 09:38 MW [id number] 08/08/22 10:13 MW Document 08/15/22 08:54 [facility] [id number] 08/15/22 09:17 BM 08/08/22 08/15/22 09:38 08:54 [...] Mesh -Expiration Date 03/08/27 -Product Lot Number [id number] -Percent Used 100 -Lot number of Saline Used [id number] -Topical Lidocaine (%) 5 -Bleeding Controlled with [...] Date Recorded By Document 08/08/22 10:26 DL [id number] 08/08/22 10:34 DL Document 08/15/22 09:28 ML [id number] 08/15/22 09:29 ML 08/08/22 08/15/22 10:26 09:28 [...] Diabetes mellitus type: type 2 Diabetes mellitus prison insulin use: without tank terminal gauger use Diabetes mellitus complication status: with neurologic [...] her right posterior LE ulcer today per prepress proofer guidelines using 100% of product, rehydrated with [...] new symptoms arise. Note: Dragon speech recognition steward/stewardess tourist class software was used to create portions of this document. Sound-alike and misspelled words, as well as other steward/stewardess tourist class errors may be contained in the documentation. 08/15/22 1250 <Electronically signed by Nisha Magallon DO> Cosigner Signature (if applicable): CC: ~ Signed [facility] Work Phone: 1(394) 139-402003-03-[address] Magallon [facility] August 08, 2022 1:58pm Note Date/Time August 08, 2022 1:48 pm [facility] [address] [place] [address] Progress Note - Wound Care 08/08/22 1235 MR#: [id number] Acct: [id number] Name: KANDI CORREIA Rep #:[id number] : 1945 76 From: Nisha Magallon DO [...] Date Recorded By Document 08/08/22 08:59 DL [id number] 08/08/22 09:08 DL 08/08/22 08:59 - Today's Visit Information Type of service Follow-up Visit (Physician/KILN STOKER ) Arrival Mode Ambulatory, Walker Transfer Assistance [...] Date Recorded By Document 08/08/22 08:59 DL [id number] 08/08/22 09:08 DL 08/08/22 08:59 Wound Center [...] Date Recorded By Document 08/08/22 09:38 MW [id number] 08/08/22 10:13 MW 08/08/22 09:38 Wound Center [...] Date Recorded By Document 08/08/22 10:26 DL [id number] 08/08/22 10:34 DL 08/08/22 10:26 Wound Care [...] Diabetes mellitus type: type 2 Diabetes mellitus prison insulin use: without residential use Diabetes mellitus complication status: with neurologic [...] symptoms worsen, or new symptoms arise. Note: PowerInbox speech recognition steward/stewardess tourist class software was used to create portions of this document. Sound-alike and misspelled words, as well as other steward/stewardess tourist class errors may be contained in the documentation. 08/08/22 1358 <Electronically signed by Nisha Magallon DO> Cosigner Signature (if applicable): CC: ~ Signed [facility] Work Phone: 1(208) 781-162703-02-2023 History of Present illness Narrative* Darlene Urbano RN - 08/07/2022 8:32 AM EST [facility] TELEPHONIC OUTREACH Provider Action/FYI: 2nd attempt Last [facility] contact 04/07/22 Contact made with patient: No - Left message Poonam my name is Darlene Urbano RN your Strong Nitric Operator from the [facility] I am calling today for your bi-weekly [...] RN - 08/06/2022 3:33 PM EST [facility] TELEPHONIC OUTREACH Provider Action/FYI: Contact made with patient: No - Left message Poonam my name is Darlene Urbano RN your Strong Nitric Operator from the [facility] I am calling today for your bi-weekly check in. I am sorry I missed your call. I will reach out to you again tomorrow. (if the third call I will reach out to you again next week) Enter next patient outreach date for the following business day using the Track Pt Outreach. End outreach. documented in this encounterTr[facility]02-24-[address] Magallon [facility] August 01, 2022 1:20pm Note Date/Time August 01, 2022 1:20pm [facility] [address] [place] [address] Progress Note - Wound Care 08/01/22 1315 MR#: [id number] Acct: [id number] Name: KANDI CORREIA Rep #:[id number] : 1945 76 From: Nisha Magallon DO [...] Date Recorded By Document 07/25/22 09:08 DL [id number] 07/25/22 09:21 DL Edit Result 07/25/22 09:08 DL (1) [id number] 07/25/22 09:37 DL Document 08/01/22 09:18 ML [id number] 08/01/22 09:35 ML (1) Height => 5 [...] Bottom => <Entered> (a) Preferred language => Somali Able to Read => Yes Able to [...] Decline in Ability to Perform => Ambulation Cultural/Catholic Needs that may affect => No Treatment Plan Would you allow our hospital director case to => No meet you for the purpose of spiritual/ emotional support? Ammonia Operator to contact place of holiness => No Diagnostic Tests Ordered - Person Taught => Patient,Family Discharge Instructions - Person Taught => Patient,Family Dressing Your Wound - Person Taught => Patient,Family *Welcome to the Wound Center - Person Taught => Patient,Family 07/25/22 08/01/22 09:08 09:18 - Today's Visit Information Type of service Initial Visit Follow-up Visit (Physician/KILN STOKER ) Arrival Mode Ambulatory, Ambulatory, Walker Walker [...] Bottom <Entered> (a) Communication Assessment Preferred language Somali Able to Read Yes Able to Write [...] Recent Decline in Ability to Perform Ambulation Culture/Catholic/Ammonia Operator Cultural/Catholic Needs that may affect No Treatment Plan Would you allow our hospital director case to No meet you for the purpose of spiritual/ emotional support? Ammonia Operator to contact place of holiness No Teaching: Wound Center Diagnostic Tests Ordered [...] Date Recorded By Document 07/25/22 09:08 DL [id number] 07/25/22 09:21 DL Edit Result 07/25/22 09:08 DL (1) [id number] 07/25/22 09:37 DL Document 08/01/22 09:18 ML [id number] 08/01/22 09:35 ML (1) #3 L POST [...] Date Recorded By Document 07/25/22 10:05 MW [id number] 07/25/22 10:26 MW Edit Result 07/25/22 10:05 MW (1) [id number] 07/28/22 06:54 PL Document 08/01/22 09:51 MW [id number] 08/01/22 10:12 MW (1) #3 L POST [...] Date Recorded By Document 07/25/22 10:36 DL [id number] 07/25/22 10:42 DL Document 08/01/22 10:19 RB [id number] 08/01/22 10:21 RB 07/25/22 08/01/22 10:36 10:19 [...] Diabetes mellitus type: type 2 Diabetes mellitus prison insulin use: without tank terminal gauger use Diabetes mellitus complication status: with neurologic [...] symptoms worsen, or new symptoms arise. Note: PowerInbox speech recognition steward/stewardess tourist class software was used to create portions of this document. Sound-alike and misspelled words, as well as other steward/stewardess tourist class errors may be contained in the documentation. 08/01/22 1320 <Electronically signed by Nisha Magallon DO> Cosigner Signature (if applicable): CC: ~ Signed [facility] Work Phone: 1(840) 448-884902-17-2023 History and physical note Author Dr. Magallon [facility] July 25, 2022 3:03pm Note Date/Time July 25, 2022 2:44pm [facility] [address] [place] [address] H&P Exam - Wound Care 07/25/22 1437 MR#: [id number] Acct: [id number] Name: KANDI CORREIA Rep #:[id number] : 1945 76 From: Nisha Magallon DO [...] time. Denies any prior cultures being taken. [facility] Medical History COPD (chronic obstructive [...] Date Recorded By Document 07/25/22 09:08 DL [id number] 07/25/22 09:21 DL Edit Result 07/25/22 09:08 DL (1) [id number] 07/25/22 09:37 DL (1) Height => 5 [...] Bottom => <Entered> (a) Preferred language => Somali Able to Read => Yes Able to [...] Decline in Ability to Perform => Ambulation Cultural/Catholic Needs that may affect => No Treatment Plan Would you allow our hospital director case to => No meet you for the purpose of spiritual/ emotional support? Ammonia Operator to contact place of holiness => No Diagnostic Tests Ordered - Person [...] Bottom <Entered> (a) Communication Assessment Preferred language Somali Able to Read Yes Able to Write [...] Recent Decline in Ability to Perform Ambulation Culture/Catholic/Ammonia Operator Cultural/Catholic Needs that may affect No Treatment Plan Would you allow our hospital director case to No meet you for the purpose of spiritual/ emotional support? Ammonia Operator to contact place of holiness No Teaching: Wound Center Diagnostic Tests Ordered [...] Date Recorded By Document 07/25/22 09:08 DL [id number] 07/25/22 09:21 DL Edit Result 07/25/22 09:08 DL (1) [id number] 07/25/22 09:37 DL (1) #3 L POST [...] Date Recorded By Document 07/25/22 10:05 MW [id number] 07/25/22 10:26 MW 07/25/22 10:05 Wound Center [...] Date Recorded By Document 07/25/22 10:36 DL [id number] 07/25/22 10:42 DL 07/25/22 10:36 Wound Care [...] Diabetes mellitus type: type 2 Diabetes mellitus prison insulin use: without residential use Diabetes mellitus complication status: with neurologic [...] symptoms worsen, or new symptoms arise. Note: PowerInbox speech recognition steward/stewardess tourist class software was used to create portions of this document. Sound-alike and misspelled words, as well as other steward/stewardess tourist class errors may be contained in the documentation. 07/25/22 1503 <Electronically signed by Nisha Magallon DO> Cosigner Signature (if applicable): CC: ~ Signed [facility] Work Phone: 1(369) 276-979002-13-2023 Miscellaneous Notes* Telephone Encounter - Natalie Gonzalez Ma - 07/21/2022 5:10 PM EST Last office visit: 07/17/22 F/u scheduled: none Ditropan was already refilled to [facility] pharmacy in Jun 2022 Natalie Gonzalez Ma documented [facility]Tr[facility] History of Present illness Narrative* Jalyn Smith [...] medications Jalyn Smith MD documented in this encounterTr[facility]02-09-2023 Instructions* Patient Instructions* Kalpana Sharif LPN - 07/17/2022 10:18 AM EST User name [id number] documented in this encounterTr[facility]02-08-2023 Miscellaneous Notes* Telephone Encounter - Casandra Burrell [...] you could fax order for this to [facility] wound care. Please advise daughter Karson. documented in this encounterTr[facility]02-01-2023 History of Present illness Narrative* Darlene Urbano RN - 07/09/2022 11:04 AM EST [facility] TELEPHONIC OUTREACH Provider Action/FYI: 2nd attempt Last [facility] CDM contact 04/07/22 Since [address] [facility] Telephonic Outreach: REYMUNDO [place] visit Contact made with patient: No - Left message Helgray my name is Darlene Urbano RN your Strong Nitric Operator from the [facility] I am calling today for your bi-weekly [...] RN - 07/08/2022 3:45 PM EST [facility] TELEPHONIC OUTREACH Provider Action/FYI: Last [facility] CDM contact 04/07/22 Since previous [facility] Telephonic Outreach: REYMUNDO May[place] visit Contact made with patient: No - Left message Hello my name is Darlene Urbano RN your Strong Nitric Operator from the [facility] I am calling today for your bi-weekly check in. I am sorry I missed your call. I will reach out to you again tomorrow. (if the third call I will reach out to you again next week) Enter next patient outreach date for the following business day using the Track Pt Outreach. End outreach. documented in this encounterTr[facility]01-26-2023 Miscellaneous Notes* Telephone Encounter - Staci Zamorano LPN - 07/03/2022 8:25 AM EST Patient phones requesting refills as follows: Requested Prescriptions Pending Prescriptions Disp Refills arformoterol (BROVANA) 15 mcg/2 mL nebulizer solution 360 mL 1 Sig: Inhale 2 mL as instructed every 12 hours. May mix with Budesonide neb twice a day. Please review and advise. Staci Zamorano LPN documented in this encounterTr[facility]01-23-2023 Miscellaneous Notes* Telephone Encounter - Natalie Gonzalez Ma - 06/30/2022 6:25 PM EST These were already refilled today. Natalie Gonzalez Ma documented in this encounterTr[facility]01-19-2023 Miscellaneous Notes* Telephone Encounter - Casandra Burrell [...] you. Casandra Burrell LPN documented in this encounterTrinity [facility]01-13-2023 History of Present illness Narrative* Zackery Mayfield MD - 06/20/2022 10:00 AM EST Images from the original note were not included. . Respiratory Beecher Note Patient name: Kandi Correia PCP: Jalyn [...] No recent hospitalizations for her COPD. DME: [facility] DATA: PFT: Review pulmonary function test shows [...] Abs Lymph 1.00 - 4.00 k/uL 1.07 Hanson% % 10.7 Abs Hanson <0.87 k/uL 0.62 Eosin% % 3.6 Abs [...] Cardiac chambers are unremarkable in appearance. 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
E11.9 - Type 2 diabetesmellitus without complication, without long-term current use of insulin (HCC) - [id number] Last Billed 03/20/2022
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
J96.11 - Chronic respiratory failure with hypoxia (HCC) - SXVGYW13 Last Billed 08/16/2021
Care gaps/appts to address: Return in about 6 months (around 09/18/2022). DILATED RETINAL EXAM MAMMOGRAM COLORECTAL CANCER SCREENING ADVANCE DIRECTIVE DISCUSSION Outcomes: Left message for patient to call me back directly to schedule. Also sent [facility] [facility] message. Pt identified by name and : NO Outreach Outcome/Action Unable to reach patient: Left message Kakao Corphart message sent Did you use a PCP flex slot to schedule this appointment? N/A Reason for Outreach HCC or suspected condition Payer: Payor: [employer] MEDICARE / Plan: [employer] MEDICARE PPO / [...] 13, 2022 11:53 AM documented in this encounterTrinity [facility]01-03-2023 History of Present illness Narrative* Darlene Urbano RN - 06/10/2022 9:07 AM EST [facility] TELEPHONIC OUTREACH Provider Action/FYI: 2nd attempt Last [facility] contact 04/07/22 Appointments for Next 60 Days Date Time Provider Dept Phone 06/20/2022 10:00 AM ZACKERY [facility] [phone] Contact made with patient: No - Left message Poonam my name is Darlene Urbano RN your Strong Nitric Operator from the [facility] I am calling today for your bi-weekly check in. I am sorry I missed your call. I will reach out to you again tomorrow. (if the third call I will reach out to you again next week) Enter next patient outreach date for the following using the Track Pt Outreach. End outreach. documented in this encounterTrinity [facility]12-30-2022 History of Present illness Narrative* Darlene Urbano RN - 06/06/2022 11:25 AM EST [facility] TELEPHONIC OUTREACH Provider Action/FYI: Last [facility] contact 04/07/22 Appointments for Next 60 Days Date Time Provider Dept Phone 06/20/2022 10:00 AM ZACKERY [place] [phone] Contact made with patient: No - Left message Helgray my name is Darlene Urbano RN your Strong Nitric Operator from the [facility] I am calling today for your bi-weekly check in. I am sorry I missed your call. I will reach out to you again tomorrow. (if the third call I will reach out to you again next week) Enter next patient outreach date for the following business day using the Track Pt Outreach. End outreach. documented in this encounterTr[facility]12-01-2022 History of Present illness Narrative* Darlene Urbano RN - 05/08/2022 12:43 PM EST [facility] TELEPHONIC OUTREACH Provider Action/FYI: 2nd attempt Since previous [facility] Telephonic Outreach: Thoracic aorta CT scan Appointments for Next 60 Days Date Time Provider Location Dept Phone 06/20/2022 10:00 AM ZACKERY [facility] [phone] Contact made with patient: No - Left message Poonam my name is Darlene Urbano RN your Strong Nitric Operator from the [facility] I am calling today for your bi-weekly [...] RN - 05/07/2022 4:18 PM EST [facility] TELEPHONIC OUTREACH Provider Action/FYI: Contact made with patient: No - Unable to leave message Entered next patient outreach date for the following business day, if third call please enter next outreach date for one week in the Track Pt. Outreach - End Outreach documented in this encounterTrinity [facility]11-11-2022 Miscellaneous Notes* Telephone Encounter - Pema Nayak - 04/18/2022 4:31 PM EST Left VM to schedule OV. 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 Reminded patient about [facility] [phone] Contact made with patient: Yes Patient identified [...] like to speak with a social work merchandise flow team leader to help give you support [...] you up for automated weekly questionnaires through [employer]. This is an easy way for us [...] Provider Location Dept Phone 04/18/2022 1:00 PM [facility] (I-STAT) Nila Hernandez [phone] [facility]2022 [facility] Nila Hernandez [phone] Contact Made with Patient: Yes Patient identified by name and . Discussed care with patient Poonam urbano name is Darlene Urbano RN your Strong Nitric Operator from Jalyn Smith MD office at the [facility]. I am reaching out today because I [...] Correia. This is Darlene Urbano RN your Strong Nitric Operator from the [facility]. I am calling to check in with you concerning the MyChart questionnaire you have been receiving from me.I will call you again tomorrow and am looking forward to speaking with you. (Strong Nitric Operator enters next day in next patient outreach) documented in this encounterTr[facility]10-18-2022 Miscellaneous Notes* Telephone Encounter - Violeta Chandra RN - 03/25/2022 10:35 AM EDT [facility] OUTREACH Provider Action/FYI: Patient misplaced number to call and schedule Cologuard brain picker. This nurse was given a number to call, by the time patient was called back, patient had found the information on line. Poonam, you've reached [facility], my name is Violeta [...] please call us back. documented in this encounterTrinity Health [facility]10-13-2022 History of Present illness Narrative* Jalyn Smith [...] (FLONASE) 50 mcg/actuation nasal spray Use 1 Westhoff in each nostril once daily. ipratropium-albuterol (DUONEB) [...] 12+ YR Jalyn Smith documented in this encounterTrinity Health [facility]10-12-2022 Miscellaneous Notes* Telephone Encounter - IRMA Wharton - 03/19/2022 12:41 PM EDT Sw mailed [facility] Older Adult Resource Guide to patient. * Telephone Encounter - IRMA Wharton - 03/17/2022 12:40 PM EDT Sw spoke with patient in regards to transportation services to medical appts. Patient notes that she typically with have daughter or cousins that will help take her to medical appts. Sw notes that she has [facility] Older Adult Resource Guide with transportation information ie. [place]. Patient notes that she would like Sw to mail guide to her home for references. Vin confirmed patient address and will mail guide to home. * Telephone Encounter - IRMA Wharton - 03/12/2022 9:50 AM EDT Sw left message for patient to return Vin call to discuss transportation resources to medical appts. documented in this encounterTrinity [facility]10-10-2022 History of Present illness Narrative* Genny Patterson [...] Sent to Practice: Navigation Signature: Genny Patterson [facility] Navigator March 17, 2022 12:15 PM documented in this encounterTrinity Health [facility]09-09-2022 Miscellaneous Notes* Telephone Encounter - Violeta Latham Pss - 02/14/2022 3:02 PM EDT Patient called and was transferred to [facility] to schedule with Dr. Gabriel Glasgow. documented in this encounterTrinity Health [facility]09-08-2022 Miscellaneous Notes* Telephone Encounter - Massiel Gabriel LPN - 02/13/2022 9:13 AM EDT APPROVED through 06/07/2022. Pt picked up rx 02/06/22. Deirdre Gabriel LPN * Telephone Encounter - Massiel Gabriel LPN - 02/05/2022 10:02 AM EDT Prior Authorization has been completed online at [employer] for Metoprolol, will await response. [place]WR[place]- [id number] Please keep encounter open until final decision has been received and documented from insurance company. Deirdre Gabriel LPN documented in this encounterTrinity Health [facility] Center08-26-2022 Miscellaneous Notes* Telephone Encounter - Kristina Holloway [...] advise. Kristina Holloway LPN documented in this encounterTrinity Health [facility]07-15-2022 Miscellaneous Notes* Telephone Encounter - Aj Hermosillo LPN - 12/20/2021 2:43 PM EDT Patient phones requesting refills as follows: Pending Prescriptions Disp Refills MELOXICAM 15 MG TABLET 90 tablet 3 Sig: Take 1 tablet by mouth once daily. With food. SVITLANA: No JERRELL 09/18/21 NOV no upcoming appt Please review and advise. Aj Hermosillo LPN documented in this encounterTrinity Health [facility] Center06-27-2022 Miscellaneous Notes* Telephone Encounter - Tracy Peter [...] call. sent to patient. documented in this encounterTrinity Health [facility]05-23-2022 Miscellaneous Notes* Telephone Encounter - Shaye Robles LPN - 10/28/2021 4:21 PM EDT Last office visit 09/18/2021 documented in this [facility]05-23-2022 Miscellaneous Notes* Telephone Encounter - Shaye Robles LPN - 10/28/2021 4:20 PM EDT Last office visit 09/18/2021. documented in this encounterTrinity [facility]05-19-2022 Miscellaneous Notes* Telephone Encounter - Kalpana Sharif [...] patient. Kalpana Sharif LPN documented in this [facility]05-01-2022 History of Present illness Narrative* Darlene Urbano RN - 02/14/2022 2:53 PM EDT [facility] Enrollment Provider Action/FYI: 1st attempt to enroll in [facility] with [facility] introduction [phone] Last Jalyn Smith MD visit 09/18/21 for wound check - no future appointment scheduled Patient referred by: [facility] [place] [place] Contact made with patient: No - Unable to leave message: (Keep encounter open and attempt 2nd outreach in two business days from today). END OUTREACH documented in this encounterTrinity Health [facility]05-01-2022 History of Present illness Narrative* Darlene Urbano RN - 02/17/2022 8:44 AM EDT [facility] Enrollment Provider Action/FYI: 2nd attempt to enroll in [facility] with [facility] introduction [phone] Last Jalyn Smith MD visit 09/18/21 for wound check - no future appointment scheduled Patient referred by: [facility] [place] [place] Contact made with patient: No - 2nd attempt to reach patient, left another message: Hi my name is Darlene Urbano RN and I am calling from the [facility] on behalf of your PCP, Jalyn Smith [...] reach the patient after two attempted outreaches. Strong Nitric Operator to retry patient in one week. END OUTREACH documented in this encounterTrinity [facility]05-01-2022 History of Present illness Narrative* Darlene Urbano RN - 02/19/2022 1:56 PM EDT Images from the original note were not included. [facility] Enrollment Provider Action/FYI: 3rd attempt to enroll in [facility] with [facility] introduction [phone] Last Jalyn Smith MD visit 09/18/21 for wound check - no future appointment scheduled - declined offer for scheduling assistance. Has appointment with ORTH provider this Thursday (outside of clinic) Knee pain - walks with walker Patient referred by: [facility] [place] Contact made with patient: Yes - Patient identified by name and . Discussed care with patient Poonam this is Darlene Urbano RN and I am calling from Jalyn Smith MD office at the [facility]. I am a RN Strong Nitric Operator with our [facility] Chronic Disease Management program. [...] few questions once a week through your [facility] account. It will automaticallyshow up for you [...] goal align with programs offered at the [facility]? No Patient accepts home health care provider Thank you for your time today. I am excited to work together in managing your health! You will receive information on next steps through your [facility] account, and I will check back within a few weeks to ensure you have all that you need to use the program successfully. (Place name in care team and assign [facility] Designer questionnaire) Most people know what to do to become healthier, yet struggle to put it into action on their own.Itcan be hard to maintain a healthy lifestyle, especially when life is so stressful. Can we connect you with a [facility] Health Diesel Maintenance Technician to find a program that could help you meet your goals? No Closing: Patient accepts home health care provider Thank you for your time today. I am excited to work together in managing your health! You will receive information on next steps through your [facility] account, and I will check back within a few weeks to ensure you have all that you need to use the program successfully. (Place name in care team and assign [facility] Designer questionnaire) documented in this encounterTr[facility] History of Present illness Narrative* Darlene Urbano [...] [place]. This is Darlene Urbano RN your Strong Nitric Operator from the [facility]. I am calling to check in with you concerning the MyChart questionnaire you have been receiving from me.I will call you again tomorrow and am looking forward to speaking with you. (Strong Nitric Operator enters next day in next patient outreach) documented in this encounterTr[facility] History of Present illness Narrative* Darlene Urbano RN - 03/11/2022 8:23 AM EDT PRIMARY CARE COORDINATION QUICK NOTE Provider Action/FYI SW REFERRAL for transportation to medical appointments Reminded patient about [facility] [phone] F/u on patient MyChart message from 03/10/22 [...] name and date . documented in this encounterTr[facility]04-18-2022 Miscellaneous Notes* Telephone Encounter - Judy Bagley - 09/23/2021 12:04 PM EDT Patient electronically requesting refills as follows: Pending Prescriptions Disp Refills BUDESONIDE 0.5 MG/2 ML SUSPENSION FOR NEBULIZATION 360 mL 3 Sig: Use 2 mL via nebulizer twice daily. SVITLANA: No Please review and advise. Judy Bagley documented in this encounterTr[facility]04-14-2022 Miscellaneous Notes* Telephone Encounter - Jojo Traylor Ma - 09/19/2021 11:11 AM EDT Pending Prescriptions Disp Refills OXYBUTYNIN CHLORIDE ER 5 MG TABLET,EXTENDED RELEASE 24 HR 90 tablet 0 Sig: Take 1 tablet by mouth once daily. SVITLANA: No JERRELL 09/18/21 NOV 09/27/21 Jojo Traylor Ma documented in this encounterTr[facility]04-13-[facility]22 History of Present illness Narrative* Jalyn Smith [...] c/o follow-up on laceration 08/30/2021 presented to [facility] emergency department with laceration to left [...] (FLONASE) 50 mcg/actuation nasal spray Use 1 Westhoff in each nostril once daily. ipratropium-albuterol (DUONEB) [...] scheduled appt and prn. documented in this encounterTr[facility]04-08-2022 Instructions* Patient Instructions* Anthony Rodríguez PA-C - 09/13/2021 3:30 PM EDT Continue duoderm, recheck in 4-7 days as transportation is available. documented in this encounterTr[facility]04-08-2022 History of Present illness Narrative* Anthony Rodríguez PA-C - 09/13/2021 3:25 PM EDT Here to replace duoderm. Wound is looking much better. Granulating nicely all the way across. Was edges with sterile water. Follow up in 4-7 days Tigre Rodríguez PA-C documented in this encounterTrinity [facility]04-06-2022 History of Present illness Narrative* Rolf Ackerman MA - 09/11/2021 3:56 PM EDT POPULATION HEALTH NAVIGATION OUTREACH Action/FYI Spoke with patient and she wants to discuss with pcp on 09/13 whether or not she still needs to do CRS & BCS anymore. Patient states it's too hard for her to get back and forth for multiple appts. Patient had last DM eye at [facility] in [place] and will be due again 10/05/21. Patient will make her own appt. A1C- already ordered- reminded to complete Albumin and lipid-Order placed- please approve and add any additional labs- sent lab reminder Sent AD via my chart. Pended Orders ID Status Description Pended By When Reason [id number] Pended LIPID PANEL BASIC Rolf Ackerman MA 09/11/21 [id number] Pended ALBUMIN/CREAT RATIO RND UR Rolf Ackerman [...] 11, 2021 3:56 PM documented in this encounterTrinity [facility]04-04-2022 Miscellaneous Notes* Telephone Encounter - Aj Hermosillo [...] Pt called today 09-06-[address] [facility] ER FU from 08-30-21. Pt has a laceration to her left lowerleg that occurred 08-29-21 in her home. She cut her leg on her walker. Pt states today the laceration is open and there is yellow drainage. She has been keeping it wrapped. No pain, just itching and burning. She reports still taking the ATB given to her from [facility] Cephalexin 500 mg capsules to take 1 every 6 hours. 40 capsules given and she has 20 left as of today 09-06-21. Pt states she was told this will heal on its own. ER FU Apt booked for 09-10-21. Judy Borrego LPN documented in this encounterTrinity [facility]04-04-2022 Miscellaneous Notes* Telephone Encounter - Sharyn Quinn MA - 09/09/2021 1:20 PM EDT Patient requested a refill on the Gabapentin, however upon review of the chart there an active prescription that was sent 90 capsule 5 refills on 08/16/2021 to [facility]. My chart message was sent to the patient. Sharyn Quinn MA documented in this encounterTrinity Health [facility]03-12-2022 History of Past illness Narrative* Problem Noted Date Resolved Date Obesity, Class III, BMI 40-49.9 (morbid obesity) 08/17/2021 10/01/2022 Skin ulcer 02/09/2019 08/16/2020 Obesity, Class II, BMI 35-39.9 12/02/2017 1 Pain, neck 03/31/2016 08/20/2016 Acute midline thoracic back pain 03/31/2016 08/20/2016 Backache, unspecified 03/14/2013 08/20/2016 COPD with chronic bronchitis 04/2021 HTN (hypertension) 08/20/2016 documented as of this encounter (statuses as of 10/01/2022) [facility] History of Past illness Narrative* Problem Noted Date Resolved Date Obesity, Class III, BMI 40-49.9 (morbid obesity) 08/17/2021 10/01/2022 Skin ulcer 02/09/2019 08/16/2020 Obesity, Class II, BMI 35-39.9 12/02/2017 1 Pain, neck 03/31/2016 08/20/2016 Acute midline thoracic back pain 03/31/2016 08/20/2016 Backache, unspecified 03/14/2013 08/20/2016 COPD with chronic bronchitis 04/2021 HTN (hypertension) 08/20/2016 documented as of this encounter (statuses as of 10/15/2022) [facility] History of Past illness Narrative* Problem Noted Date Resolved Date Obesity, Class III, BMI 40-49.9 (morbid obesity) 08/17/2021 10/01/2022 Skin ulcer 02/09/2019 08/16/2020 Obesity, Class II, BMI 35-39.9 12/02/2017 1 Pain, neck 03/31/2016 08/20/2016 Acute midline thoracic back pain 03/31/2016 08/20/2016 Backache, unspecified 03/14/2013 08/20/2016 COPD with chronic bronchitis 04/2021 HTN (hypertension) 08/20/2016 documented as of this encounter (statuses as of 10/15/2022) [address]12-2022 History of Past illness Narrative* Problem Noted Date Resolved Date Obesity, Class III, BMI 40-49.9 (morbid obesity) 08/17/2021 10/01/2022 Skin ulcer 02/09/2019 08/16/2020 Obesity, Class II, BMI 35-39.9 12/02/2017 1 Pain, neck 03/31/2016 08/20/2016 Acute midline thoracic back pain 03/31/2016 08/20/2016 Backache, unspecified 03/14/2013 08/20/2016 COPD with chronic bronchitis 04/2021 HTN (hypertension) 08/20/2016 documented as of this encounter (statuses as of 11/13/2022) [facility] History of Past illness Narrative* Problem Noted Date Resolved Date Obesity, Class III, BMI 40-49.9 (morbid obesity) 08/17/2021 10/01/2022 Skin ulcer 02/09/2019 08/16/2020 Obesity, Class II, BMI 35-39.9 12/02/2017 1 Pain, neck 03/31/2016 08/20/2016 Acute midline thoracic back pain 03/31/2016 08/20/2016 Backache, unspecified 03/14/2013 08/20/2016 COPD with chronic bronchitis 04/2021 HTN (hypertension) 08/20/2016 documented as of this encounter (statuses as of 12/05/2022) [facility] History of Past illness Narrative* Problem Noted Date Resolved Date Obesity, Class III, BMI 40-49.9 (morbid obesity) 08/17/2021 10/01/2022 Skin ulcer 02/09/2019 08/16/2020 Obesity, Class II, BMI 35-39.9 12/02/2017 1 Pain, neck 03/31/2016 08/20/2016 Acute midline thoracic back pain 03/31/2016 08/20/2016 Backache, unspecified 03/14/2013 08/20/2016 COPD with chronic bronchitis 04/2021 HTN (hypertension) 08/20/2016 documented as of this encounter (statuses as of 12/06/2022) [facility] History of Past illness Narrative* Problem Noted Date Resolved Date Obesity, Class III, BMI 40-49.9 (morbid obesity) 08/17/2021 10/01/2022 Skin ulcer 02/09/2019 08/16/2020 Obesity, Class II, BMI 35-39.9 12/02/2017 1 Pain, neck 03/31/2016 08/20/2016 Acute midline thoracic back pain 03/31/2016 08/20/2016 Backache, unspecified 03/14/2013 08/20/2016 COPD with chronic bronchitis 04/2021 HTN (hypertension) 08/20/2016 documented as of this encounter (statuses as of 12/11/2022) [facility] History of Past illness Narrative* Problem Noted Date Resolved Date Obesity, Class III, BMI 40-49.9 (morbid obesity) 08/17/2021 10/01/2022 Skin ulcer 02/09/2019 08/16/2020 Obesity, Class II, BMI 35-39.9 12/02/2017 1 Pain, neck 03/31/2016 08/20/2016 Acute midline thoracic back pain 03/31/2016 08/20/2016 Backache, unspecified 03/14/2013 08/20/2016 COPD with chronic bronchitis 04/2021 HTN (hypertension) 08/20/2016 documented as of this encounter (statuses as of 12/12/2022) [facility] of Past illness Narrative* Problem Noted [...] of this encounter (statuses as of 12/16/2022) [facility] of Past illness Narrative* Problem Noted [...] of this encounter (statuses as of 01/08/2023) [facility] of Past illness Narrative* Problem Noted [...] of this encounter (statuses as of 01/08/2023) [facility] of Past illness Narrative* Problem Noted [...] of this encounter (statuses as of 01/08/2023) [facility] of Past illness Narrative* Problem Noted [...] of this encounter (statuses as of 01/13/2023) [facility] of Past illness Narrative* Problem Noted [...] of this encounter (statuses as of 01/13/2023) [facility] of Past illness Narrative* Problem Noted [...] of this encounter (statuses as of 01/14/2023) [facility] of Past illness Narrative* Problem Noted [...] of this encounter (statuses as of 01/16/2023) [facility] of Past illness Narrative* Problem Noted [...] of this encounter (statuses as of 01/20/2023) [facility] of Past illness Narrative* Problem Noted [...] of this encounter (statuses as of 01/22/2023) [facility] of Past illness Narrative* Problem Noted [...] of this encounter (statuses as of 01/22/2023) [facility] of Past illness Narrative* Problem Noted [...] of this encounter (statuses as of 02/05/2023) [facility] of Past illness Narrative* Problem Noted [...] of this encounter (statuses as of 02/11/2023) [address]12-2022 History of Past illness Narrative* Problem [...] of this encounter (statuses as of 03/14/2023) [facility] of Past illness Narrative* Problem Noted [...] of this encounter (statuses as of 03/27/2023) [address]12-2022 History of Past illness Narrative* Problem [...] of this encounter (statuses as of 03/27/2023) [address]12-2022 History of Past illness Narrative* Problem [...] of this encounter (statuses as of 03/30/2023) [facility] of Past illness Narrative* Problem Noted [...] of this encounter (statuses as of 04/12/2023) [facility] of Past illness Narrative* Problem Noted [...] of this encounter (statuses as of 04/12/2023) [address]12-2022 History of Past illness Narrative* Problem [...] of this encounter (statuses as of 04/29/2023) [facility] of Past illness Narrative* Problem Noted [...] of this encounter (statuses as of 05/05/2023) [address]12-2022 History of Past illness Narrative* Problem [...] of this encounter (statuses as of 05/19/2023) [facility] of Past illness Narrative* Problem Noted [...] of this encounter (statuses as of 07/16/2023) [facility] of Past illness Narrative* Problem Noted [...] of this encounter (statuses as of 07/20/2023) [facility] of Past illness Narrative* Problem Noted [...] of this encounter (statuses as of 07/24/2023) [facility] of Past illness Narrative* Problem Noted [...] of this encounter (statuses as of 08/05/2023) [facility] of Past illness Narrative* Problem Noted [...] of this encounter (statuses as of 08/17/2023) [facility] Past [facility] Narrative* Problem Noted [...] of this encounter (statuses as of 08/24/2023) [facility] of Past illness Narrative* Problem Noted [...] of this encounter (statuses as of 08/25/2023) [facility] of Past illness Narrative* Problem Noted [...] of this encounter (statuses as of 08/26/2023) [facility] of Past illness Narrative* Problem Noted [...] of this encounter (statuses as of 08/28/2023) [facility] of Past illness Narrative* Problem Noted [...] of this encounter (statuses as of 2023) [facility] Past illness Narrative* Problem Noted [...] of this encounter (statuses as of 2023) [facility] of Past illness Narrative* Problem Noted [...] of this encounter (statuses as of 09/08/2023) [facility] of Past illness Narrative* Problem Noted [...] of this encounter (statuses as of 09/09/2023) [facility] Past illness Narrative* Problem Noted [...] of this encounter (statuses as of 09/11/2023) [facility] Past illness Narrative* Problem Noted [...] of this encounter (statuses as of 09/11/2023) [facility] of Past illness Narrative* Problem Noted [...] of this encounter (statuses as of 09/13/2023) [facility] of Past illness Narrative* Problem Noted [...] of this encounter (statuses as of 09/14/2023) [facility] of Past illness Narrative* Problem Noted [...] of this encounter (statuses as of 09/16/2023) [facility] Past illness Narrative* Problem Noted [...] of this encounter (statuses as of 09/22/2023) [facility] of Past illness Narrative* Problem Noted [...] of this encounter (statuses as of 09/22/2023) [facility] of Past illness Narrative* Problem Noted [...] of this encounter (statuses as of 09/23/2023) [facility] of Past illness Narrative* Problem Noted [...] of this encounter (statuses as of 09/24/2023) [facility] of Past illness Narrative* Problem Noted [...] of this encounter (statuses as of 09/25/2023) [facility]03[facility]10-[facility] Miscellaneous Notes* Telephone Encounter - Francoise Grady RN - 08/15/2021 12:12 PM EST Rizwana calling from [facility] to report plan of care for patient and OT will visit patient 1 times a week for first week and 2 times a week for 3 weeks. OT will work with patient on safe oxygen line management and ROM of left arm related to arthritis. Rizwana said she doesn't need a call back if provider agrees. Francoise Grady RN documented in this encounterTrinity [facility]02-[facility]22 Miscellaneous Notes* Telephone Encounter - Tracy Peter [...] daughter if needing to advise further. PH: [phone]. Thank you. documented in this encounterTrinity [facility]09-[facility] History of Past illness Narrative* Problem Noted Date Resolved Date Skin ulcer 02/09/2019 08/16/2020 Obesity, Class II, BMI 35-39.9 12/02/2017 1 Pain, neck 03/31/2016 08/20/2016 Acute midline thoracic back pain 03/31/2016 08/20/2016 Backache, unspecified 03/14/2013 08/20/2016 COPD with chronic bronchitis 04/2021 HTN (hypertension) 08/20/2016 documented as of this encounter (statuses as of 09/09/2021) [facility] of Past [facility] Narrative* Problem Noted Date Resolved Date Skin ulcer 02/09/2019 08/16/2020 Obesity, Class II, BMI 35-39.9 12/02/2017 1 Pain, neck 03/31/2016 08/20/2016 Acute midline thoracic back pain 03/31/2016 08/20/2016 Backache, unspecified 03/14/2013 08/20/2016 COPD with chronic bronchitis 04/2021 HTN (hypertension) 08/20/2016 documented as of this encounter (statuses as of 09/11/2021) [facility] of Past illness Narrative* Problem Noted Date Resolved Date Skin ulcer 02/09/2019 08/16/2020 Obesity, Class II, BMI 35-39.9 12/02/2017 1 Pain, neck 03/31/2016 08/20/2016 Acute midline thoracic back pain 03/31/2016 08/20/2016 Backache, unspecified 03/14/2013 08/20/2016 COPD with chronic bronchitis 04/2021 HTN (hypertension) 08/20/2016 documented as of this encounter (statuses as of 09/13/2021) [facility] Narrative* Problem Noted Date Resolved Date Skin ulcer 02/09/2019 08/16/2020 Obesity, Class II, BMI 35-39.9 12/02/2017 1 Pain, neck 03/31/2016 08/20/2016 Acute midline thoracic back pain 03/31/2016 08/20/2016 Backache, unspecified 03/14/2013 08/20/2016 COPD with chronic bronchitis 04/2021 HTN (hypertension) 08/20/2016 documented as of this encounter (statuses as of 09/13/2021) [facility] Narrative* Problem Noted Date Resolved Date Skin ulcer 02/09/2019 08/16/2020 Obesity, Class II, BMI 35-39.9 12/02/2017 1 Pain, neck 03/31/2016 08/20/2016 Acute midline thoracic back pain 03/31/2016 08/20/2016 Backache, unspecified 03/14/2013 08/20/2016 COPD with chronic bronchitis 04/2021 HTN (hypertension) 08/20/2016 documented as of this encounter (statuses as of 09/18/2021) [facility] Narrative* Problem Noted Date Resolved Date Skin ulcer 02/09/2019 08/16/2020 Obesity, Class II, BMI 35-39.9 12/02/2017 1 Pain, neck 03/31/2016 08/20/2016 Acute midline thoracic back pain 03/31/2016 08/20/2016 Backache, unspecified 03/14/2013 08/20/2016 COPD with chronic bronchitis 04/2021 HTN (hypertension) 08/20/2016 documented as of this encounter (statuses as of 09/19/2021) [facility] Narrative* Problem Noted Date Resolved Date Skin ulcer 02/09/2019 08/16/2020 Obesity, Class II, BMI 35-39.9 12/02/2017 1 Pain, neck 03/31/2016 08/20/2016 Acute midline thoracic back pain 03/31/2016 08/20/2016 Backache, unspecified 03/14/2013 08/20/2016 COPD with chronic bronchitis 04/2021 HTN (hypertension) 08/20/2016 documented as of this encounter (statuses as of 09/23/2021) [facility] Narrative* Problem Noted Date Resolved Date Skin ulcer 02/09/2019 08/16/2020 Obesity, Class II, BMI 35-39.9 12/02/2017 1 Pain, neck 03/31/2016 08/20/2016 Acute midline thoracic back pain 03/31/2016 08/20/2016 Backache, unspecified 03/14/2013 08/20/2016 COPD with chronic bronchitis 04/2021 HTN (hypertension) 08/20/2016 documented as of this encounter (statuses as of 10/24/2021) [facility] Narrative* Problem Noted Date Resolved Date Skin ulcer 02/09/2019 08/16/2020 Obesity, Class II, BMI 35-39.9 12/02/2017 1 Pain, neck 03/31/2016 08/20/2016 Acute midline thoracic back pain 03/31/2016 08/20/2016 Backache, unspecified 03/14/2013 08/20/2016 COPD with chronic bronchitis 04/2021 HTN (hypertension) 08/20/2016 documented as of this encounter (statuses as of 10/24/2021) [facility] of [facility] Narrative* Problem Noted Date Resolved Date Skin ulcer 02/09/2019 08/16/2020 Obesity, Class II, BMI 35-39.9 12/02/2017 1 Pain, neck 03/31/2016 08/20/2016 Acute midline thoracic back pain 03/31/2016 08/20/2016 Backache, unspecified 03/14/2013 08/20/2016 COPD with chronic bronchitis 04/2021 HTN (hypertension) 08/20/2016 documented as of this encounter (statuses as of 10/28/2021) [facility] Narrative* Problem Noted Date Resolved Date Skin ulcer 02/09/2019 08/16/2020 Obesity, Class II, BMI 35-39.9 12/02/2017 1 Pain, neck 03/31/2016 08/20/2016 Acute midline thoracic back pain 03/31/2016 08/20/2016 Backache, unspecified 03/14/2013 08/20/2016 COPD with chronic bronchitis 04/2021 HTN (hypertension) 08/20/2016 documented as of this encounter (statuses as of 10/28/2021) [facility] Narrative* Problem Noted Date Resolved Date Skin ulcer 02/09/2019 08/16/2020 Obesity, Class II, BMI 35-39.9 12/02/2017 1 Pain, neck 03/31/2016 08/20/2016 Acute midline thoracic back pain 03/31/2016 08/20/2016 Backache, unspecified 03/14/2013 08/20/2016 COPD with chronic bronchitis 04/2021 HTN (hypertension) 08/20/2016 documented as of this encounter (statuses as of 12/02/2021) [facility]2019 History of Past illness Narrative* Problem Noted Date Resolved Date Skin ulcer 02/09/2019 08/16/2020 Obesity, Class II, BMI 35-39.9 12/02/2017 1 Pain, neck 03/31/2016 08/20/2016 Acute midline thoracic back pain 03/31/2016 08/20/2016 Backache, unspecified 03/14/2013 08/20/2016 COPD with chronic bronchitis 04/2021 HTN (hypertension) 08/20/2016 documented as of this encounter (statuses as of 12/18/2021) [facility] History of Past illness Narrative* Problem Noted Date Resolved Date Skin ulcer 02/09/2019 08/16/2020 Obesity, Class II, BMI 35-39.9 12/02/2017 1 Pain, neck 03/31/2016 08/20/2016 Acute midline thoracic back pain 03/31/2016 08/20/2016 Backache, unspecified 03/14/2013 08/20/2016 COPD with chronic bronchitis 04/2021 HTN (hypertension) 08/20/2016 documented as of this encounter (statuses as of 12/20/2021) [facility] History of Past illness Narrative* Problem Noted Date Resolved Date Skin ulcer 02/09/2019 08/16/2020 Obesity, Class II, BMI 35-39.9 12/02/2017 1 Pain, neck 03/31/2016 08/20/2016 Acute midline thoracic back pain 03/31/2016 08/20/2016 Backache, unspecified 03/14/2013 08/20/2016 COPD with chronic bronchitis 04/2021 HTN (hypertension) 08/20/2016 documented as of this encounter (statuses as of 12/23/2021) [facility] History of Past illness Narrative* Problem Noted Date Resolved Date Skin ulcer 02/09/2019 08/16/2020 Obesity, Class II, BMI 35-39.9 12/02/2017 1 Pain, neck 03/31/2016 08/20/2016 Acute midline thoracic back pain 03/31/2016 08/20/2016 Backache, unspecified 03/14/2013 08/20/2016 COPD with chronic bronchitis 04/2021 HTN (hypertension) 08/20/2016 documented as of this encounter (statuses as of 01/23/2022) [facility] History of Past illness Narrative* Problem Noted Date Resolved Date Skin ulcer 02/09/2019 08/16/2020 Obesity, Class II, BMI 35-39.9 12/02/2017 1 Pain, neck 03/31/2016 08/20/2016 Acute midline thoracic back pain 03/31/2016 08/20/2016 Backache, unspecified 03/14/2013 08/20/2016 COPD with chronic bronchitis 04/2021 HTN (hypertension) 08/20/2016 documented as of this encounter (statuses as of 01/31/2022) [facility] History of Past illness Narrative* Problem Noted Date Resolved Date Skin ulcer 02/09/2019 08/16/2020 Obesity, Class II, BMI 35-39.9 12/02/2017 1 Pain, neck 03/31/2016 08/20/2016 Acute midline thoracic back pain 03/31/2016 08/20/2016 Backache, unspecified 03/14/2013 08/20/2016 COPD with chronic bronchitis 04/2021 HTN (hypertension) 08/20/2016 documented as of this encounter (statuses as of 02/09/2022) [facility] History of Past illness Narrative* Problem Noted Date Resolved Date Skin ulcer 02/09/2019 08/16/2020 Obesity, Class II, BMI 35-39.9 12/02/2017 1 Pain, neck 03/31/2016 08/20/2016 Acute midline thoracic back pain 03/31/2016 08/20/2016 Backache, unspecified 03/14/2013 08/20/2016 COPD with chronic bronchitis 04/2021 HTN (hypertension) 08/20/2016 documented as of this encounter (statuses as of 02/13/2022) [facility] History of Past illness Narrative* Problem Noted Date Resolved Date Skin ulcer 02/09/2019 08/16/2020 Obesity, Class II, BMI 35-39.9 12/02/2017 1 Pain, neck 03/31/2016 08/20/2016 Acute midline thoracic back pain 03/31/2016 08/20/2016 Backache, unspecified 03/14/2013 08/20/2016 COPD with chronic bronchitis 04/2021 HTN (hypertension) 08/20/2016 documented as of this encounter (statuses as of 02/14/2022) [facility] History of Past illness Narrative* Problem Noted Date Resolved Date Skin ulcer 02/09/2019 08/16/2020 Obesity, Class II, BMI 35-39.9 12/02/2017 1 Pain, neck 03/31/2016 08/20/2016 Acute midline thoracic back pain 03/31/2016 08/20/2016 Backache, unspecified 03/14/2013 08/20/2016 COPD with chronic bronchitis 04/2021 HTN (hypertension) 08/20/2016 documented as of this encounter (statuses as of 02/14/2022) [facility] History of Past illness Narrative* Problem Noted Date Resolved Date Skin ulcer 02/09/2019 08/16/2020 Obesity, Class II, BMI 35-39.9 12/02/2017 1 Pain, neck 03/31/2016 08/20/2016 Acute midline thoracic back pain 03/31/2016 08/20/2016 Backache, unspecified 03/14/2013 08/20/2016 COPD with chronic bronchitis 04/2021 HTN (hypertension) 08/20/2016 documented as of this encounter (statuses as of 02/17/2022) [facility] History of Past illness Narrative* Problem Noted Date Resolved Date Skin ulcer 02/09/2019 08/16/2020 Obesity, Class II, BMI 35-39.9 12/02/2017 1 Pain, neck 03/31/2016 08/20/2016 Acute midline thoracic back pain 03/31/2016 08/20/2016 Backache, unspecified 03/14/2013 08/20/2016 COPD with chronic bronchitis 04/2021 HTN (hypertension) 08/20/2016 documented as of this encounter (statuses as of 02/19/2022) [facility] History of Past illness Narrative* Problem Noted Date Resolved Date Skin ulcer 02/09/2019 08/16/2020 Obesity, Class II, BMI 35-39.9 12/02/2017 1 Pain, neck 03/31/2016 08/20/2016 Acute midline thoracic back pain 03/31/2016 08/20/2016 Backache, unspecified 03/14/2013 08/20/2016 COPD with chronic bronchitis 04/2021 HTN (hypertension) 08/20/2016 documented as of this encounter (statuses as of 02/26/2022) [facility] History of Past illness Narrative* Problem Noted Date Resolved Date Skin ulcer 02/09/2019 08/16/2020 Obesity, Class II, BMI 35-39.9 12/02/2017 1 Pain, neck 03/31/2016 08/20/2016 Acute midline thoracic back pain 03/31/2016 08/20/2016 Backache, unspecified 03/14/2013 08/20/2016 COPD with chronic bronchitis 04/2021 HTN (hypertension) 08/20/2016 documented as of this encounter (statuses as of 03/06/2022) [facility] History of Past illness Narrative* Problem Noted Date Resolved Date Skin ulcer 02/09/2019 08/16/2020 Obesity, Class II, BMI 35-39.9 12/02/2017 1 Pain, neck 03/31/2016 08/20/2016 Acute midline thoracic back pain 03/31/2016 08/20/2016 Backache, unspecified 03/14/2013 08/20/2016 COPD with chronic bronchitis 04/2021 HTN (hypertension) 08/20/2016 documented as of this encounter (statuses as of 03/10/2022) [facility] History of Past illness Narrative* Problem Noted Date Resolved Date Skin ulcer 02/09/2019 08/16/2020 Obesity, Class II, BMI 35-39.9 12/02/2017 1 Pain, neck 03/31/2016 08/20/2016 Acute midline thoracic back pain 03/31/2016 08/20/2016 Backache, unspecified 03/14/2013 08/20/2016 COPD with chronic bronchitis 04/2021 HTN (hypertension) 08/20/2016 documented as of this encounter (statuses as of 03/11/2022) [facility] History of Past illness Narrative* Problem Noted Date Resolved Date Skin ulcer 02/09/2019 08/16/2020 Obesity, Class II, BMI 35-39.9 12/02/2017 1 Pain, neck 03/31/2016 08/20/2016 Acute midline thoracic back pain 03/31/2016 08/20/2016 Backache, unspecified 03/14/2013 08/20/2016 COPD with chronic bronchitis 04/2021 HTN (hypertension) 08/20/2016 documented as of this encounter (statuses as of 03/17/2022) [facility] History of Past illness Narrative* Problem Noted Date Resolved Date Skin ulcer 02/09/2019 08/16/2020 Obesity, Class II, BMI 35-39.9 12/02/2017 1 Pain, neck 03/31/2016 08/20/2016 Acute midline thoracic back pain 03/31/2016 08/20/2016 Backache, unspecified 03/14/2013 08/20/2016 COPD with chronic bronchitis 04/2021 HTN (hypertension) 08/20/2016 documented as of this encounter (statuses as of 03/19/2022) [facility] History of Past illness Narrative* Problem Noted Date Resolved Date Skin ulcer 02/09/2019 08/16/2020 Obesity, Class II, BMI 35-39.9 12/02/2017 1 Pain, neck 03/31/2016 08/20/2016 Acute midline thoracic back pain 03/31/2016 08/20/2016 Backache, unspecified 03/14/2013 08/20/2016 COPD with chronic bronchitis 04/2021 HTN (hypertension) 08/20/2016 documented as of this encounter (statuses as of 03/20/2022) [facility] History of Past illness Narrative* Problem Noted Date Resolved Date Skin ulcer 02/09/2019 08/16/2020 Obesity, Class II, BMI 35-39.9 12/02/2017 1 Pain, neck 03/31/2016 08/20/2016 Acute midline thoracic back pain 03/31/2016 08/20/2016 Backache, unspecified 03/14/2013 08/20/2016 COPD with chronic bronchitis 04/2021 HTN (hypertension) 08/20/2016 documented as of this encounter (statuses as of 03/20/2022) [facility] History of Past illness Narrative* Problem Noted Date Resolved Date Skin ulcer 02/09/2019 08/16/2020 Obesity, Class II, BMI 35-39.9 12/02/2017 1 Pain, neck 03/31/2016 08/20/2016 Acute midline thoracic back pain 03/31/2016 08/20/2016 Backache, unspecified 03/14/2013 08/20/2016 COPD with chronic bronchitis 04/2021 HTN (hypertension) 08/20/2016 documented as of this encounter (statuses as of 03/25/2022) [facility] History of Past illness Narrative* Problem Noted Date Resolved Date Skin ulcer 02/09/2019 08/16/2020 Obesity, Class II, BMI 35-39.9 12/02/2017 1 Pain, neck 03/31/2016 08/20/2016 Acute midline thoracic back pain 03/31/2016 08/20/2016 Backache, unspecified 03/14/2013 08/20/2016 COPD with chronic bronchitis 04/2021 HTN (hypertension) 08/20/2016 documented as of this encounter (statuses as of 03/31/2022) [facility] History of Past illness Narrative* Problem Noted Date Resolved Date Skin ulcer 02/09/2019 08/16/2020 Obesity, Class II, BMI 35-39.9 12/02/2017 1 Pain, neck 03/31/2016 08/20/2016 Acute midline thoracic back pain 03/31/2016 08/20/2016 Backache, unspecified 03/14/2013 08/20/2016 COPD with chronic bronchitis 04/2021 HTN (hypertension) 08/20/2016 documented as of this encounter (statuses as of 04/08/2022) [facility] History of Past illness Narrative* Problem Noted Date Resolved Date Skin ulcer 02/09/2019 08/16/2020 Obesity, Class II, BMI 35-39.9 12/02/2017 1 Pain, neck 03/31/2016 08/20/2016 Acute midline thoracic back pain 03/31/2016 08/20/2016 Backache, unspecified 03/14/2013 08/20/2016 COPD with chronic bronchitis 04/2021 HTN (hypertension) 08/20/2016 documented as of this encounter (statuses as of 04/18/2022) [facility] History of Past illness Narrative* Problem Noted Date Resolved Date Skin ulcer 02/09/2019 08/16/2020 Obesity, Class II, BMI 35-39.9 12/02/2017 1 Pain, neck 03/31/2016 08/20/2016 Acute midline thoracic back pain 03/31/2016 08/20/2016 Backache, unspecified 03/14/2013 08/20/2016 COPD with chronic bronchitis 04/2021 HTN (hypertension) 08/20/2016 documented as of this encounter (statuses as of 05/08/2022) [facility] History of Past illness Narrative* Problem Noted Date Resolved Date Skin ulcer 02/09/2019 08/16/2020 Obesity, Class II, BMI 35-39.9 12/02/2017 1 Pain, neck 03/31/2016 08/20/2016 Acute midline thoracic back pain 03/31/2016 08/20/2016 Backache, unspecified 03/14/2013 08/20/2016 COPD with chronic bronchitis 04/2021 HTN (hypertension) 08/20/2016 documented as of this encounter (statuses as of 05/12/2022) [facility] History of Past illness Narrative* Problem Noted Date Resolved Date Skin ulcer 02/09/2019 08/16/2020 Obesity, Class II, BMI 35-39.9 12/02/2017 1 Pain, neck 03/31/2016 08/20/2016 Acute midline thoracic back pain 03/31/2016 08/20/2016 Backache, unspecified 03/14/2013 08/20/2016 COPD with chronic bronchitis 04/2021 HTN (hypertension) 08/20/2016 documented as of this encounter (statuses as of 06/11/2022) [facility] History of Past illness Narrative* Problem Noted Date Resolved Date Skin ulcer 02/09/2019 08/16/2020 Obesity, Class II, BMI 35-39.9 12/02/2017 1 Pain, neck 03/31/2016 08/20/2016 Acute midline thoracic back pain 03/31/2016 08/20/2016 Backache, unspecified 03/14/2013 08/20/2016 COPD with chronic bronchitis 04/2021 HTN (hypertension) 08/20/2016 documented as of this encounter (statuses as of 06/12/2022) [facility] History of Past illness Narrative* Problem Noted Date Resolved Date Skin ulcer 02/09/2019 08/16/2020 Obesity, Class II, BMI 35-39.9 12/02/2017 1 Pain, neck 03/31/2016 08/20/2016 Acute midline thoracic back pain 03/31/2016 08/20/2016 Backache, unspecified 03/14/2013 08/20/2016 COPD with chronic bronchitis 04/2021 HTN (hypertension) 08/20/2016 documented as of this encounter (statuses as of 06/14/2022) [facility] History of Past illness Narrative* Problem Noted Date Resolved Date Skin ulcer 02/09/2019 08/16/2020 Obesity, Class II, BMI 35-39.9 12/02/2017 1 Pain, neck 03/31/2016 08/20/2016 Acute midline thoracic back pain 03/31/2016 08/20/2016 Backache, unspecified 03/14/2013 08/20/2016 COPD with chronic bronchitis 04/2021 HTN (hypertension) 08/20/2016 documented as of this encounter (statuses as of 06/20/2022) [facility] History of Past illness Narrative* Problem Noted Date Resolved Date Skin ulcer 02/09/2019 08/16/2020 Obesity, Class II, BMI 35-39.9 12/02/2017 1 Pain, neck 03/31/2016 08/20/2016 Acute midline thoracic back pain 03/31/2016 08/20/2016 Backache, unspecified 03/14/2013 08/20/2016 COPD with chronic bronchitis 04/2021 HTN (hypertension) 08/20/2016 documented as of this encounter (statuses as of 06/25/2022) [facility] History of Past illness Narrative* Problem Noted Date Resolved Date Skin ulcer 02/09/2019 08/16/2020 Obesity, Class II, BMI 35-39.9 12/02/2017 1 Pain, neck 03/31/2016 08/20/2016 Acute midline thoracic back pain 03/31/2016 08/20/2016 Backache, unspecified 03/14/2013 08/20/2016 COPD with chronic bronchitis 04/2021 HTN (hypertension) 08/20/2016 documented as of this encounter (statuses as of 06/26/2022) [facility] History of Past illness Narrative* Problem Noted Date Resolved Date Skin ulcer 02/09/2019 08/16/2020 Obesity, Class II, BMI 35-39.9 12/02/2017 1 Pain, neck 03/31/2016 08/20/2016 Acute midline thoracic back pain 03/31/2016 08/20/2016 Backache, unspecified 03/14/2013 08/20/2016 COPD with chronic bronchitis 04/2021 HTN (hypertension) 08/20/2016 documented as of this encounter (statuses as of 07/01/2022) [facility] History of Past illness Narrative* Problem Noted Date Resolved Date Skin ulcer 02/09/2019 08/16/2020 Obesity, Class II, BMI 35-39.9 12/02/2017 1 Pain, neck 03/31/2016 08/20/2016 Acute midline thoracic back pain 03/31/2016 08/20/2016 Backache, unspecified 03/14/2013 08/20/2016 COPD with chronic bronchitis 04/2021 HTN (hypertension) 08/20/2016 documented as of this encounter (statuses as of 07/01/2022) [facility] History of Past illness Narrative* Problem Noted Date Resolved Date Skin ulcer 02/09/2019 08/16/2020 Obesity, Class II, BMI 35-39.9 12/02/2017 1 Pain, neck 03/31/2016 08/20/2016 Acute midline thoracic back pain 03/31/2016 08/20/2016 Backache, unspecified 03/14/2013 08/20/2016 COPD with chronic bronchitis 04/2021 HTN (hypertension) 08/20/2016 documented as of this encounter (statuses as of 07/03/2022) [facility] History of Past illness Narrative* Problem Noted Date Resolved Date Skin ulcer 02/09/2019 08/16/2020 Obesity, Class II, BMI 35-39.9 12/02/2017 1 Pain, neck 03/31/2016 08/20/2016 Acute midline thoracic back pain 03/31/2016 08/20/2016 Backache, unspecified 03/14/2013 08/20/2016 COPD with chronic bronchitis 04/2021 HTN (hypertension) 08/20/2016 documented as of this encounter (statuses as of 07/09/2022) [facility] of Past illness Narrative* Problem Noted Date Resolved Date Skin ulcer 02/09/2019 08/16/2020 Obesity, Class II, BMI 35-39.9 12/02/2017 1 Pain, neck 03/31/2016 08/20/2016 Acute midline thoracic back pain 03/31/2016 08/20/2016 Backache, unspecified 03/14/2013 08/20/2016 COPD with chronic bronchitis 04/2021 HTN (hypertension) 08/20/2016 documented as of this encounter (statuses as of 07/16/2022) [facility] of Past illness Narrative* Problem Noted Date Resolved Date Skin ulcer 02/09/2019 08/16/2020 Obesity, Class II, BMI 35-39.9 12/02/2017 1 Pain, neck 03/31/2016 08/20/2016 Acute midline thoracic back pain 03/31/2016 08/20/2016 Backache, unspecified 03/14/2013 08/20/2016 COPD with chronic bronchitis 04/2021 HTN (hypertension) 08/20/2016 documented as of this encounter (statuses as of 07/17/2022) [facility] History of Past illness Narrative* Problem Noted Date Resolved Date Skin ulcer 02/09/2019 08/16/2020 Obesity, Class II, BMI 35-39.9 12/02/2017 1 Pain, neck 03/31/2016 08/20/2016 Acute midline thoracic back pain 03/31/2016 08/20/2016 Backache, unspecified 03/14/2013 08/20/2016 COPD with chronic bronchitis 04/2021 HTN (hypertension) 08/20/2016 documented as of this encounter (statuses as of 07/22/2022) [facility] History of Past illness Narrative* Problem Noted Date Resolved Date Skin ulcer 02/09/2019 08/16/2020 Obesity, Class II, BMI 35-39.9 12/02/2017 1 Pain, neck 03/31/2016 08/20/2016 Acute midline thoracic back pain 03/31/2016 08/20/2016 Backache, unspecified 03/14/2013 08/20/2016 COPD with chronic bronchitis 04/2021 HTN (hypertension) 08/20/2016 documented as of this encounter (statuses as of 08/07/2022) [facility] History of Past illness Narrative* Problem Noted Date Resolved Date Skin ulcer 02/09/2019 08/16/2020 Obesity, Class II, BMI 35-39.9 12/02/2017 1 Pain, neck 03/31/2016 08/20/2016 Acute midline thoracic back pain 03/31/2016 08/20/2016 Backache, unspecified 03/14/2013 08/20/2016 COPD with chronic bronchitis 04/2021 HTN (hypertension) 08/20/2016 documented as of this encounter (statuses as of 08/11/2022) [facility] of Past illness Narrative* Problem Noted Date Resolved Date Skin ulcer 02/09/2019 08/16/2020 Obesity, Class II, BMI 35-39.9 12/02/2017 1 Pain, neck 03/31/2016 08/20/2016 Acute midline thoracic back pain 03/31/2016 08/20/2016 Backache, unspecified 03/14/2013 08/20/2016 COPD with chronic bronchitis 04/2021 HTN (hypertension) 08/20/2016 documented as of this encounter (statuses as of 09/01/2022) [facility] of Past illness Narrative* Problem Noted Date Resolved Date Skin ulcer 02/09/2019 08/16/2020 Obesity, Class II, BMI 35-39.9 12/02/2017 1 Pain, neck 03/31/2016 08/20/2016 Acute midline thoracic back pain 03/31/2016 08/20/2016 Backache, unspecified 03/14/2013 08/20/2016 COPD with chronic bronchitis 04/2021 HTN (hypertension) 08/20/2016 documented as of this encounter (statuses as of 09/11/2022) [facility] of Past illness Narrative* Problem Noted Date Resolved Date Skin ulcer 02/09/2019 08/16/2020 Obesity, Class II, BMI 35-39.9 12/02/2017 1 Pain, neck 03/31/2016 08/20/2016 Acute midline thoracic back pain 03/31/2016 08/20/2016 Backache, unspecified 03/14/2013 08/20/2016 COPD with chronic bronchitis 04/2021 HTN (hypertension) 08/20/2016 documented as of this encounter (statuses as of 09/20/2022) [facility] of Past illness Narrative* Problem Noted Date Resolved Date Skin ulcer 02/09/2019 08/16/2020 Obesity, Class II, BMI 35-39.9 12/02/2017 1 Pain, neck 03/31/2016 08/20/2016 Acute midline thoracic back pain 03/31/2016 08/20/2016 Backache, unspecified 03/14/2013 08/20/2016 COPD with chronic bronchitis 04/2021 HTN (hypertension) 08/20/2016 documented as of this encounter (statuses as of 09/29/2022) [facility] Author Vibha Ramos [facility] December 15, 2022 2:11pm Note Date/Time December 15, 2022 2:[address] [facility] Medical Records Department [address] [place] [address] Counseling Note - Pharmacy 12/15/22 1410 MR#: [id number] Acct: [id number] Name: KANDI CORREIA Rep #:[id number] : 1945 77 From: Vibha Ramos PCP: Dr. Jalyn Smith MD Status:ADM I NO Y Location: [place] [address] Pharmacy [place] Med Reconciliation Pharmacy Service has performed discharge [...] Signature (if applicable): Date CC: ~ Signed [facility] Work Phone: Discharge summary Author [facility] December 15, 2022 3:23pm Note Date/Time December 15, 2022 3:24 pm [facility] Medical Records Department [address] [place] [id number] Transfer to [facility] MR#: [id number] Acct: [id number] Name: KANDI CORREIA Rep #:[id number] : 1945 77 From: Chris Marie PCP: Dr. Jalyn Smith MD Status:ADM I NO Certification of patient admission REQUIRED AT TIME OF ADMISSION. I CERTIFY THAT POST-HOSPITAL ECF SERVICES ARE REQUIRED TO BE GIVEN ON AN IN-PATIENT BASIS BECAUSE OF THE ABOVE NAMED PATIENT'S NEED FOR SHELTER CARE ON A CONTINUING BASIS FOR THE CONDITION(S) FOR WHICH HE/SHE WAS RECEIVINGIN-PATIENT HOSPITAL SERVICES PRIOR TO HIS/HER TRANSFER TO THE F. 12/15/22 152<Electronically signed by Chris Deshpande MD> 12/15/22 152 <Electronically signed by Chris Deshpande MD> Cosigner Signature (if applicable): CC: Dr. Burke Patterson MD; Dr. Angle Latham MD; Dr. Jalyn Smith MD ~ [facility] Work Phone: Evaluation note* Diagnosis Type 2 diabetes mellitus without complication, without long-term current use of insulin (HCC)- Primary documented in this encounter [facility] note* Diagnosis Puncture wound of left calf- [facility] Diagnosis Wound of left lower extremity, subsequent encounter- Primary [facility]* Diagnosis Chronic obstructive pulmonary disease, unspecified COPD type (HCC) [facility]* Diagnosis Onset Date [...] disease chronic Essential hypertension chron ic Hypertension [facility] Work Phone: Evaluation note* Diagnosis Type 2 diabetes mellitus without complication, without long-term current use of insulin (HCC) documented in this encounter [facility] note* Diagnosis Type 2 diabetes mellitus without complication, without long-term current use of insulin (HCC) documented in this encounter [facility] note* Diagnosis Onset Date Resolution Status [...] disease chronic Essential hypertension chron ic Hypertension [facility] Work Phone: Evaluation note* Diagnosis DDD (degenerative disc disease), lumbar Degeneration of lumbar or lumbosacral intervertebral disc Essential hypertension Unspecified essential hypertension [facility] Diagnosis Onset Date Resolution Status Debility [...] disease chronic Essential hypertension chron ic Hypertension [facility] Work Phone: Evaluation note* Diagnosis Type 2 diabetes mellitus without complication, without long-term current use of insulin ([facility]) DDD (degenerative disc disease), lumbar Degeneration of lumbar or lumbosacral intervertebral disc [facility] Diagnosis Onset Date Resolution Status Debility [...] disease chronic Essential hypertension chron ic Hypertension [facility] Work Phone: Evaluation note* Diagnosis Onset [...] disease chronic Essential hypertension chron ic Hypertension [facility] Work Phone: Evaluation note* Diagnosis DDD (degenerative disc disease), lumbar Degeneration of lumbar or lumbosacral intervertebral disc Essential hypertension Unspecified essential hypertension Type 2 diabetes mellitus without complication, without long-term current use of insulin (HCC) documented in this encounter [facility] note* Diagnosis DDD (degenerative disc disease), lumbar Degeneration of lumbar or lumbosacral intervertebral disc documented in this encounter [facility] note* Diagnosis Thoracic aortic aneurysm without rupture, [...] unspecified single disease [facility] Diagnosis Dissection of descending thoracic aorta- Primary Dissection of aorta, thoracic Aortic dissection, abdominal (HCC) Dissection of aorta, abdominal documented in this encounter [facility] note* Diagnosis Tobacco abuse Tobacco use disorder documented in this encounter [facility] note* Diagnosis Chronic obstructive pulmonary disease, unspecified COPD type ([facility])- Primary documented in this encounter [facility] note* Diagnosis Stage 3 severe COPD by GOLD classification ([facility])- Primary Dependence on continuous supplemental oxygen Class 1 obesity due to excess calories with body mass index (BMI) of 34.0 to 34.9 in adult, unspecified whether serious comorbidity present documented in this encounter [facility] note* Diagnosis Type 2 diabetes mellitus without complication, without long-term current use of insulin (HCC) DDD (degenerative disc disease), lumbar Degeneration of lumbar or lumbosacral intervertebral disc documented in this encounter [facility] note* Diagnosis Type 2 diabetes mellitus without complication, without long-term current use of insulin (HCC) DDD (degenerative disc disease), lumbar Degeneration of lumbar or lumbosacral intervertebral disc documented in this encounter [facility] note* Diagnosis Chronic obstructive pulmonary disease, unspecified COPD type ([facility]) documented in this encounter [facility] note* Diagnosis Stage 3 severe COPD by GOLD classification ([facility]) documented in this encounter [facility] note* Diagnosis Venous stasis ulcer of right calf without varicose veins, unspecified ulcer stage ([facility])- Primary Essential hypertension Unspecified essential hypertension Type 2 diabetes mellitus without complication, without long-term current use of insulin ([facility]) documented in this encounter [facility] note* Diagnosis DDD (degenerative disc disease), lumbar Degeneration of lumbar or lumbosacral intervertebral disc Essential hypertension Unspecified essential hypertension documented in this encounter [facility] note* Diagnosis Onset Date Resolution Status [...] acute Chronic obstructive pulmonary disease chronic Hypertension [facility] Work Phone: Evaluation note* Diagnosis Encounter for screening mammogram for breast cancer documented in this encounter [facility] note* Diagnosis Onset Date Resolution Status [...] acute Chronic obstructive pulmonary disease chronic Hypertension [facility] Work Phone: Evaluation note* Diagnosis Essential [...] specified viral diseases [facility] Diagnosis Onset Date Resolution Status Diabetes [...] acute Chronic obstructive pulmonary disease chronic Hypertension [facility] Work Phone: Evaluation note* Diagnosis Shortness of breath [facility] Diagnosis Shortness of breath [facility] Diagnosis Onset Date Resolution [...] acute Chronic obstructive pulmonary disease chronic Hypertension [facility] Work Phone: Evaluation note* Diagnosis Dysuria- Primary [facility] Diagnosis Onset Date Resolution Status Diabetes [...] Hypertension chronic CATHI (acute kidney injury) [place] Anemia acute Diabetes mellitus acute [place] acute Weakness acute Chronic obstructive pulmonary disease chronic Hypertension [facility] Work Phone: Evaluation note* Diagnosis Essential hypertension- Primary Unspecified essential hypertension Thoracic aortic aneurysm without rupture, unspecified part (HCC) MICHEL (obstructive sleep apnea) Obstructive sleep apnea (adult) (pediatric) Type 2 diabetes mellitus without complication, without long-term current use of insulin ([facility]) Osteoarthritis of both knees, unspecified osteoarthritis type Anemia, unspecified type Renal insufficiency Unspecified disorder of kidney and ureter Microscopic hematuria Melena Blood in stool NYHA class 2 and ACC/AHA stage C acute on chronic systolic congestive heart failure ([facility]) [facility] Diagnosis Onset Date Resolution Status Diabetes [...] chronic CATHI (acute kidney injury) re solved [facility] Work Phone: Evaluation note* Diagnosis Onset [...] Chronic obstructive pulmonary disease chronic Hypertension chronic [facility] Work Phone: Evaluation note* Diagnosis Diarrhea, [...] lumbosacral intervertebral disc [facility]* Diagnosis Anemia, unspecified type- Primary [facility]* Diagnosis Chronic obstructive pulmonary disease, unspecified COPD type (HCC)- Primary Dependence on continuous supplemental oxygen Former smoker Personal history of tobacco use, presenting hazards to health Class 2 obesity due to excess calories with body mass index (BMI) of 35.0 to 35.9 in adult, unspecified whether serious comorbidity present [facility]* Diagnosis Onset Date Resolution [...] Chronic obstructive pulmonary disease chronic Hypertension chronic CTAHI (acute kidney injury) re solved Debility acute [...] acute Chronic obstructive pulmonary disease chronic Hypertension [facility] Work Phone: Evaluation note* Diagnosis Onset [...] acute Chronic obstructive pulmonary disease chronic Hypertension [facility] Work Phone: Evaluation note* Diagnosis Stage 3 severe COPD by GOLD classification ([facility]) documented in this encounter [facility] note* Diagnosis DDD (degenerative disc disease), lumbar Degeneration of lumbar or lumbosacral intervertebral disc Essential hypertension Unspecified essential hypertension documented in this encounter [facility] note* Diagnosis Dissection of descending thoracic aorta (HCC) Dissection of aorta, thoracic Aortic dissection, abdominal (HCC) Dissection of aorta, abdominal documented in this encounter [facility] note* Diagnosis Dissection of descending thoracic aorta (HCC) Dissection of aorta, thoracic Aortic dissection, abdominal (HCC) Dissection of aorta, abdominal documented in this encounter [facility] note* Diagnosis Type 2 diabetes mellitus without complication, without long-term current use of insulin (HCC) DDD (degenerative disc disease), lumbar Degeneration of lumbar or lumbosacral intervertebral disc documented in this encounter [facility] note* Diagnosis Chronic obstructive pulmonary disease, unspecified COPD type ([facility]) documented in this encounter [facility] note* Diagnosis COPD, severe (HCC)- Primary Chronic airway obstruction, not elsewhere classified Chronic respiratory failure with hypoxia ([facility]) Chronic respiratory failure Former cigarette smoker Personal history of tobacco use, presenting hazards to health Class 2 obesity [facility] Diagnosis Restless leg- Primary Restless legs syndrome (RLS) Type 2 diabetes mellitus without complication, without long-term current use of insulin (HCC) DDD (degenerative disc disease), lumbar Degeneration of lumbar or lumbosacral intervertebral disc [facility] Diagnosis Restless leg Restless legs syndrome (RLS) documented [facility]* Diagnosis Type 2 diabetes mellitus without complication, without long-term current use of insulin (HCC) DDD (degenerative disc disease), lumbar Degeneration of lumbar or lumbosacral intervertebral disc documented in this encounter [facility] noteNo assessment information availableWBethesda [facility] Work Phone: Evaluation note* Diagnosis Bacterial pneumonia- Primary Bacterial pneumonia, unspecified Type 2 diabetes mellitus without complication, without long-term current use of insulin (HCC) Chronic respiratory failure with hypoxia (HCC) Chronic respiratory failure MICHEL (obstructive sleep apnea) Obstructive sleep apnea (adult) (pediatric) [facility]* Diagnosis Renal insufficiency- Primary Unspecified disorder of kidney and ureter Anemia, unspecified type Abdominal aortic aneurysm (AAA) without rupture, unspecified part (HCC) Infiltrate noted on imaging study Other nonspecific (abnormal) findings on radiological and other examinations of body structure [facility] this encounter [facility]* Diagnosis Hypoxemia- Primary documented [facility] this encounter [facility]* Diagnosis Thoracic aortic aneurysm without rupture, unspecified part (HCC)- Primary Dissection of descending aorta (HCC) Abdominal aortic aneurysm (AAA) without rupture, unspecified part (HCC) documented in this encounter [facility]* Diagnosis Thoracic aortic aneurysm without rupture, unspecified part (HCC)- Primary Dissection of descending aorta (HCC) Abdominal aortic aneurysm (AAA) without rupture, unspecified part (HCC) Centrilobular emphysema (HCC) Other emphysema 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, thoracoabdominal documented in this encounter [facility]* Diagnosis Microscopic hematuria- Primary [facility]* Diagnosis Hypoxemia [facility]* Diagnosis Pneumonia of both lower lobes due to infectious organism- Primary COPD, severe (HCC) Chronic airway obstruction, not elsewhere classified Chronic respiratory failure with hypoxia (HCC) Chronic respiratory failure Former cigarette smoker Personal history of tobacco use, presenting hazards to health Class 2 obesity documented [facility] this encounter [facility]* Diagnosis Restless leg Restless legs syndrome (RLS) Type 2 diabetes mellitus without complication, without long-term current use of insulin (HCC) documented in this encounter [facility]* Diagnosis Thoracic aortic aneurysm without rupture, unspecified part (HCC) Dissection of descending aorta (HCC) Abdominal aortic aneurysm (AAA) without rupture, unspecified part (HCC) 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, thoracoabdominal documented in this encounter [facility]* Diagnosis Restless leg Restless legs syndrome (RLS) documented in this encounter [facility]* Diagnosis 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, 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) Thoracic aortic aneurysm without rupture, unspecified part (HCC) Type 2 diabetes mellitus with diabetic nephropathy, with long-term current use of insulin (HCC) NYHA class 2 and ACC/AHA stage C acute on chronic systolic congestive heart failure (HCC) documented in this encounter [facility]* Diagnosis Type 2 diabetes mellitus without complication, without long-term current use of insulin (HCC) documented in this encounter [facility]* Diagnosis COPD, severe (HCC) Chronic airway obstruction, not elsewhere classified documented [facility] this encounter [facility]* Diagnosis COPD, severe (HCC)- Primary Chronic airway obstruction, not elsewhere classified Chronic respiratory failure with hypoxia (HCC) Chronic respiratory failure Former cigarette smoker Personal history of tobacco use, presenting hazards to health Class 2 obesity [facility]* Diagnosis Shortness of breath documented in this encounter [facility]* Diagnosis COPD, severe (HCC) Chronic airway obstruction, not elsewhere classified documented [facility] this encounter [facility]* Diagnosis Restless leg Restless legs syndrome (RLS) documented in this encounter [facility]* Diagnosis Bacterial pneumonia Bacterial pneumonia, unspecified documented [facility] this encounter [facility]* Diagnosis Essential hypertension- Primary [...] and behavioral disorders documented [facility] this [facility]* Diagnosis Anemia, unspecified type- Primary History of rectal bleeding Personal history of other diseases of digestive system Hypomagnesemia Disorders of magnesium metabolism [facility]* Diagnosis Acute and chronic respiratory failure with hypoxia (HCC)- Primary Acute and chronic respiratory failure documented [facility] this [facility]* Diagnosis COPD, severe (HCC) Chronic airway obstruction, not elsewhere classified documented [facility] this encounter [facility]* Diagnosis DDD (degenerative disc disease), lumbar Degeneration of lumbar or lumbosacral intervertebral disc Essential hypertension Unspecified essential hypertension Restless leg Restless legs syndrome (RLS) Hypomagnesemia Disorders of magnesium metabolism [facility] Diagnosis Restless leg Restless legs syndrome (RLS) documented [facility] encounter [facility] Diagnosis Restless leg Restless legs syndrome (RLS) documented [facility]* Diagnosis Urinary tract infection without hematuria, site unspecified- Primary Essential hypertension Unspecified essential hypertension Type 2 diabetes mellitus without complication, without long-term current use of insulin (HCC) Acute constipation Unspecified constipation Abdominal pain, unspecified abdominal location Chronic respiratory failure with hypoxia (HCC) Chronic respiratory failure [facility]* Diagnosis Type 2 diabetes mellitus without complication, without long-term current use of insulin (HCC) [facility]* Diagnosis Restless leg Restless legs syndrome (RLS) documented [facility]* Diagnosis Restless leg Restless legs syndrome (RLS) documented [facility]* Diagnosis Restless leg Restless legs syndrome (RLS) [facility]* Diagnosis DDD (degenerative disc disease), lumbar Degeneration of lumbar or lumbosacral intervertebral disc Essential hypertension Unspecified essential hypertension [facility]* Diagnosis 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 note* Diagnosis COPD, severe (HCC) Chronic airway obstruction, not elsewhere classified documented in this encounter [facility] note* Diagnosis Aneurysm of left common iliac artery Thoracic aortic aneurysm without rupture, unspecified part 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, thoracoabdominal Anemia, unspecified type History of rectal bleeding Personal history of other diseases of digestive system [facility]* Diagnosis Anemia, unspecified type documented in this encounter [facility] note* Diagnosis Acute and chronic respiratory failure with hypoxia (HCC)- Primary Acute and chronic respiratory failure documented [facility] this encounter [facility] note Author Nisha Magallon [facility] January 09, 2023 1:36pm Note Date/Time January 09, 2023 1:3 6pm [facility] [address] [place] [address] Progress Note - Wound Care 01/09/23 1333 MR#: [id number] Acct: [id number] Name: KANDI CORREIA Rep #:[id number] : 1945 77 From: Nisha Magallon DO PCP: Dr. Jalyn Smiht MD Status:REG R CR Location: History of [...] Recorded Date Recorded By Document 01/09/23 09:34 [id number] 01/09/23 09:38 01/09/23 09:34 - Today's Visit Information Type of service Follow-up Visit (Physician/KILN STOKER ) Arrival Mode Ambulatory, Walker Transfer Assistance [...] Date Recorded By Document 01/09/23 09:34 CAROLINE [id number] 01/09/23 09:38 01/09/23 09:34 Wound Center Nurse 1 #2 R POST LE -Combined with other wound No -Current Size (cm) - Length 0.1 -Current Size (cm) - Width 0.1 -Current Size (cm) - Depth 0.1 -Total Square Cm 0.01 -Tunneling No -Undermining/Tunneling No -Circular Undermining No -Exudate Amt Medium -Exudate Type Serosanguineous -Wound Margin Distinct, Outline Attached -Granulation Amt Medium (34-66%) -Granulation Quality [place] -Slough/Fibrin Yes -Necrosis Amt Medium (34-66%) -Necrotic [...] Date Recorded By Document 01/09/23 09:43 MW [id number] 01/09/23 09:52 MW 01/09/23 09:43 Wound Center [...] Date Recorded By Document 01/09/23 10:05 RB [id number] 01/09/23 10:07 RB 01/09/23 10:05 Wound Care [...] Diabetes mellitus type: type 2 Diabetes mellitus prison insulin use: without tank terminal gauger use Diabetes mellitus complication status: with neurologic [...] se her again in the future. Note: [employer] speech recognition steward/stewardess tourist class software was used to create portions of this document. Sound-alike and misspelled words, as well as other steward/stewardess tourist class errors may be contained in the documentation. 01/09/23 [id number] <Electronically signed by Nisha Magallon DO> Cosigner Signature (if applicable): CC: ~ Signed [facility] Work Phone: Reason for referral (narrative)* Diagnostic Procedure Only (Routine) - Pending Review Specialty Diagnoses / Procedures Referred By Cyrus castillo Referred To Contact [facility] Diagnoses Encounter for screening mammogram for breast cancer Procedures KALI SCREENING SCREENING MAMMOGRAPHY BI 2-VIEW BREAST INC CAD Jalyn Smith MD [address] [place] [address] [facility] [address] [place] [id number] Referral ID Status Reason Start Date Expiration Date Visits Requested Visits Authorized [id number] Pending Review Auto-Generat ed Referral 08/06/2022 09/05/2023 1 1 [facility] for referral (narrative)* Outpatient Procedure (Routine) - Pending Review Specialty Diagnoses / Procedures Referred By Cyrus castillo Referred To [facility] Diagnoses Hypoxemia Procedures OXIMETRY WITH AMBULATION NONINVASIVE EAR/PULSE OXIMETRY Zackery Miles MD [address] [place] [address] Res[facility] [address] [place] [id number] Referral ID Status Reason Start Date Expiration Date Visits Requested Visits Authorized [id number] Pending Review Auto-Generat ed Referral 09/10/2023 10/09/2024 1 1 [facility] (n[facility]ative)No reason for referral information availableWBethesda North [facility] Work Phone: Reason for visit Narrative* Consult, Test, Treat (Routine) - Closed Specialty Diagnoses / Procedures Referred By Contac t Referred To Contact Gastroenterology Diagnoses Anemia, unspecified type History of rectal bleeding Procedures CONSULT TO GASTROENTEROLOGY OFFICE/OUTPATIENT [facility] 60 MINUTES Jalyn Smith MD [address] [place] [address] Phone: tel: fax: Referral ID Status Reason Start Date Expiration Date V isits Requested Visits Authorized [id number] Closed PCP Requested Referral 03/11/2024 03/11/2025 1 1 [facility] Summary Purpose Family History No Family History Records Found Relationship Condition Age at Onset Recorded Date/T rebel mother Malignant neoplasm Unknown father Chronic obstructive pulmonary disease Unk nown Malignant neoplasm Unknown son Cardiac disease Unknown Advance Directives No Advanced Directives Records FoundDocuments on File Type Date Recorded Patient Society Editor Expl anation Advance Directive(s) 12/22/2018 11:34 PM Advance Directive Response Recorded Date/ Time Name of Medical Power of Machine Hose Cutter Glenna Mckenzie July 25, 2021 2:08am Name of Medical Power of Machine Hose Cutter two daughters July 26, 2021 4:36pm Living Will Yes August 30, 2021 12:44pm Power of Machine Hose Cutter Yes August 30 12:44pm Advance Directive Response Recorded Date/ Time Living Will Yes August 30, 2021 12:44pm Power of Machine Hose Cutter Yes August 30 12:44pm Advance Directive Response Recorded Date/ Time Living Will Yes August 30, 2021 11:44am Power of Machine Hose Cutter Yes August 30 11:44am Advance Directive Response Recorded Date/ Time Name of Medical Power of Machine Hose Cutter Karson Mcdermott December 10, 2022 5:53pm Living Will Yes December 10, 2022 5 :53pm Power of Machine Hose Cutter Yes December 10, 2022 5:53pm Advance Directive Response Recorded Date/ Time Name of Medical Power of Machine Hose Cutter karson retana. brandin mckenzie December 10, 2022 11:13pm Living Will Yes December 10, 2022 1 1:13pm Power of Machine Hose Cutter Yes December 10, 2022 11:13pm Advance Directive Response Recorded Date/ Time Name of Medical Power of Machine Hose Cutter Rin Correia, daughter December 16, 2022 4:47pm Living Will Yes December 16, 2022 4:47pm Power of Machine Hose Cutter Yes December 16 4:47pm Name of Medical Power of Machine Hose Cutter karson retana. lonny mckenzie December 10, 2022 11:13pm Advance Directive Response Recorded Date/ Time Living Will Yes August 28, 2023 2:28pm Power of Machine Hose Cutter Yes August 27 2:28pm Name of Medical Power of Machine Hose Cutter ? August 28, 2023 2:28pm Advance Directive Response Recorded Date/ Time Living Will No September 04, 2024 7:50am Do you have a Healthcare Power of Machine Hose Cutter? No September 04, 2024 7:50am Chief Complaint [...] part Procedures CONSULT TO VASCULAR SURGERY OFFICE/OUTPATIENT [facility] 60-74 MINUTES Jalyn Smith MD [address] [place] [address] Referral ID Status Reason Start Date Expiration Date Visits Requested Visits Authorized [id number] Authorized PCP Requested Referral 2 03/20/2023 1 1 Specialty Diagnoses / Procedures Referred By Contac t Referred To Contact Pulmonary and Critical Care Medicine Diagnoses Centrilobular emphysema (HCC) Procedures CONSULT TO PULM/CRITICAL CARE OFFICE/OUTPATIENT [facility] 60-74 MINUTES Jalyn Smith MD [address] [place] [address] Referral ID Status Reason Start Date Expiration Date Visits Requested Visits Authorized [id number] Authorized PCP Requested Referral 2 03/20/2023 1 1 Specialty Diagnoses / Procedures Referred By Contac t Referred To Contact CT IMAGING Diagnoses 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, abdominal (HCC) Procedures CTA CHEST (NONGATED) W IVCON CT ANGIOGRAPHY CHEST W/CONTRAST/NONCONTRAST Herminia Carrera, TRANSIT COACH OPERATOR.KILN STOKER 1 [facility] [address] [place] [address] Ct Imaging Referral ID Status Reason Start Date Expiration Date Visits Requested Visits Authorized [id number] Pending Review Auto-Generat ed Referral 2 04/19/2023 1 1 Specialty Diagnoses / Procedures Referred By Contac t Referred To Contact CT IMAGING Diagnoses 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, abdominal (HCC) Procedures CTA ABD/PEL W IVCON CT ANGIO ABD&PLVIS CNTRST MTRL W/WO CNTRST Herminia Sanz, TRANSIT COACH OPERATOR.KILN STOKER 1 [facility] [address] [place] [address] [address] [address] Referral ID Status Reason Start Date Expiration Date Visits Requested Visits Authorized [id number] Pending Review Auto-Generat ed Referral 2 04/19/2023 1 1 Specialty Diagnoses / Procedures Referred By Contac t Referred To Contact Pain Management Diagnoses Osteoarthritis of both knees, unspecified osteoarthritis type DDD (degenerative disc disease), lumbar Procedures CONSULT TO PAIN MGT OFFICE/OUTPATIENT [facility] 60-74 MINUTES Jalyn Smith MD [address] [place] [address] Referral ID Status Reason Start Date Expiration Date Visits Requested Visits Authorized [id number] Authorized PCP Requested Referral 01/12/2023 01/12/2024 1 1 Specialty Diagnoses / Procedures Referred By Contac t Referred To Contact CT IMAGING Diagnoses 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, abdominal (HCC) Procedures CTA ABD/PEL W IVCON CT ANGIO ABD&PLVIS CNTRST MTRL W/WO CNTRST Herminia Sanz, TRANSIT COACH OPERATOR.KILN STOKER 1 [employer] [facility] [address] [place] [address] [place] [id number] Referral ID Status Reason Start Date Expiration Date V isits Requested Visits Authorized [id number] Closed Auto-Generat ed Referral Patient Cleared - Admin/Chairm an/Director advise to proceed or did not respond 04/18/2022 05/18/2022 1 1 Specialty Diagnoses / Procedures Referred By Contac t Referred To Contact CT IMAGING Diagnoses 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, abdominal (HCC) Procedures CTA CHEST (NONGATED) W IVCON CT ANGIOGRAPHY CHEST W/CONTRAST/NONCONTRAST Herminia Carrera, TRANSIT COACH OPERATOR.KILN STOKER [address] [facility] [address] [place] [address] [place] [address] Referral ID Status Reason Start Date Expiration Date V isits Requested Visits Authorized [id number] Closed Auto-Generat ed Referral Patient Cleared - Admin/Chairm an/Director advise to proceed or did not respond 04/18/2022 05/18/2022 1 1 Specialty Diagnoses / Procedures Referred By Contac t Referred To Contact Vascular Surgery Diagnoses Thoracic aortic aneurysm without rupture, unspecified part (HCC) Dissection of descending aorta (HCC) Abdominal aortic aneurysm (AAA) without rupture, unspecified part (HCC) Procedures CONSULT TO VASCULAR SURGERY OFFICE/OUTPATIENT [facility] 60 MINUTES Jalyn Smith MD [address] [place] [address] Referral ID Status Reason Start Date Expiration Date Visits Requested Visits Authorized [id number] Authorized PCP Requested Referral 09/09/2023 09/08/2024 1 1 Specialty Diagnoses / Procedures Referred By Contac t Referred To Contact CT IMAGING Diagnoses Abdominal aortic aneurysm (AAA) without rupture, unspecified part (HCC) Dissection of thoracoabdominal aorta (HCC) Procedures CTA ABD/PEL W IVCON CT ANGIO ABD&PLVIS CNTRST MTRL W/WO CNTRST Yaniv Carvajal MD [address] [place] [address] [address] [place] [id number] Referral ID Status Reason Start Date Expiration Date Visits Requested Visits Authorized [id number] Pending Review Auto-Generat ed Referral 09/21/2023 10/20/2024 1 1 Specialty Diagnoses / Procedures Referred By Contac t Referred To Contact CT IMAGING Diagnoses Thoracic aortic aneurysm without rupture, unspecified part (HCC) Dissection of descending aorta (HCC) Procedures CTA CHEST (NONGATED) WO/W IVCON CT ANGIOGRAPHY CHEST W/CONTRAST/NONCONTRAST Yaniv Todd MD [address] [place] [address] Ct Imaging [facility] Referral ID Status Reason Start Date Expiration Date Visits Requested Visits Authorized [id number] Pending Review Auto-Generat ed Referral 09/21/2023 10/20/2024 1 1 Specialty Diagnoses / Procedures Referred By Contac t Referred To Contact CT IMAGING Diagnoses 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) Thoracic aortic aneurysm without rupture, unspecified part (HCC) Dissection of thoracoabdominal aorta (HCC) Procedures CTA ABD/PEL W IVCON CT ANGIO ABD&PLVIS CNTRST MTRL W/WO CNTRST Yaniv Carvajal MD [address] [place] [address] Ct Imaging [facility] Referral ID Status Reason Start Date Expiration Date Visits Requested Visits Authorized [id number] Pending Review Auto-Generat ed Referral 11/04/2024 12/04/2024 1 1 Specialty Diagnoses / Procedures Referred By Contac t Referred To Contact CT IMAGING Diagnoses Chest pain, unspecified type Procedures CTA CHEST (NONGATED) W IVCON CT ANGIOGRAPHY CHEST W/CONTRAST/NONCONTRAST Yaniv Todd MD [address] [place] [address] Ct Imaging [facility] Referral ID Status Reason Start Date Expiration Date Visits Requested Visits Authorized [id number] Pending Review Auto-Generat ed Referral 11/04/2024 12/04/2024 1 1 Specialty Diagnoses / Procedures Referred By Contac t Referred To Contact Gastroenterology Diagnoses Anemia, unspecified type History of rectal bleeding Procedures CONSULT TO GASTROENTEROLOGY OFFICE/OUTPATIENT [facility] 60 MINUTES Jalyn Smith MD [address] [place] [address] Referral ID Status Reason Start Date Expiration Date Visits Requested Visits Authorized [id number] Authorized PCP Requested Referral 03/11/2024 03/11/2025 1 1 Additional Source Comments INFORMATION SOURCE (unrecogn ized section and content) DATE CREATED AUTHOR 07/05/[address] [facility] DATE CREATED AUTHOR AUTHOR'S ORGANIZ ATION 10/13/2020 [facility] DATE CREATED AUTHOR AUTHOR'S ORGANIZ ATION 09/25/2023 [facility] DATE CREATED AUTHOR AUTHOR'S ORGANIZ ATION 09/29/2024 [facility] DATE CREATED AUTHOR AUTHOR'S ORGANIZ ATION 12/03/2024 [facility] DATE CREATED AUTHOR AUTHOR'S ORGANIZ ATION 03/23/2025 [facility] Source Comments (unrecognize d section and content) In the event this informatio n is protected by the Federal Confidentiality of Alcohol and Drug Abuse Patient Records regulations: The Federal rules restrict any use of the information to criminally investigate or prosecute any alcohol or drug abuse patient.[facility] the event this information is protected by the Federal Confidentiality of Alcohol and Drug Abuse Patient Records regulations: The Federal rules restrict any use of the information to criminally investigate or prosecute any alcohol or drug abuse patient.[facility] CenterIn the event this information is protected by the Federal Confidentiality of Alcohol and Drug Abuse Patient Records regulations: The Federal rules restrict any use of the information to criminally investigate or prosecute any alcohol or drug abuse patient.[facility] CenterIn the event this information is protected by the Federal Confidentiality of Alcohol and Drug Abuse Patient Records regulations: The Federal rules restrict any use of the information to criminally investigate or prosecute any alcohol or drug abuse patient.[facility] CenterIn the event this information is protected by the Federal Confidentiality of Alcohol and Drug Abuse Patient Records regulations: The Federal rules restrict any use of the information to criminally investigate or prosecute any alcohol or drug abuse patient.[facility] CenterIn the event this information is protected by the Federal Confidentiality of Alcohol and Drug Abuse Patient Records regulations: The Federal rules restrict any use of the information to criminally investigate or prosecute any alcohol or drug abuse patient.[facility] CenterIn the event this information is protected by the Federal Confidentiality of Alcohol and Drug Abuse Patient Records regulations: The Federal rules restrict any use of the information to criminally investigate or prosecute any alcohol or drug abuse patient.[facility] CenterIn the event this information is protected by the Federal Confidentiality of Alcohol and Drug Abuse Patient Records regulations: The Federal rules restrict any use of the information to criminally investigate or prosecute any alcohol or drug abuse patient.[facility] CenterIn the event this information is protected by the Federal Confidentiality of Alcohol and Drug Abuse Patient Records regulations: The Federal rules restrict any use of the information to criminally investigate or prosecute any alcohol or drug abuse patient.[facility] CenterIn the event this information is protected by the Federal Confidentiality of Alcohol and Drug Abuse Patient Records regulations: The Federal rules restrict any use of the information to criminally investigate or prosecute any alcohol or drug abuse patient.[facility] CenterIn the event this information is protected by the Federal Confidentiality of Alcohol and Drug Abuse Patient Records regulations: The Federal rules restrict any use of the information to criminally investigate or prosecute any alcohol or drug abuse patient.[facility] CenterIn the event this information is protected by the Federal Confidentiality of Alcohol and Drug Abuse Patient Records regulations: The Federal rules restrict any use of the information to criminally investigate or prosecute any alcohol or drug abuse patient.[facility] CenterIn the event this information is protected by the Federal Confidentiality of Alcohol and Drug Abuse Patient Records regulations: The Federal rules restrict any use of the information to criminally investigate or prosecute any alcohol or drug abuse patient.[facility] CenterIn the event this information is protected by the Federal Confidentiality of Alcohol and Drug Abuse Patient Records regulations: The Federal rules restrict any use of the information to criminally investigate or prosecute any alcohol or drug abuse patient.[facility] CenterIn the event this information is protected by the Federal Confidentiality of Alcohol and Drug Abuse Patient Records regulations: The Federal rules restrict any use of the information to criminally investigate or prosecute any alcohol or drug abuse patient.[facility] CenterIn the event this information is protected by the Federal Confidentiality of Alcohol and Drug Abuse Patient Records regulations: The Federal rules restrict any use of the information to criminally investigate or prosecute any alcohol or drug abuse patient.[facility] CenterIn the event this information is protected by the Federal Confidentiality of Alcohol and Drug Abuse Patient Records regulations: The Federal rules restrict any use of the information to criminally investigate or prosecute any alcohol or drug abuse patient.[facility] CenterIn the event this information is protected by the Federal Confidentiality of Alcohol and Drug Abuse Patient Records regulations: The Federal rules restrict any use of the information to criminally investigate or prosecute any alcohol or drug abuse patient.[facility] CenterIn the event this information is protected by the Federal Confidentiality of Alcohol and Drug Abuse Patient Records regulations: The Federal rules restrict any use of the information to criminally investigate or prosecute any alcohol or drug abuse patient.[facility] CenterIn the event this information is protected by the Federal Confidentiality of Alcohol and Drug Abuse Patient Records regulations: The Federal rules restrict any use of the information to criminally investigate or prosecute any alcohol or drug abuse patient.[facility] CenterIn the event this information is protected by the Federal Confidentiality of Alcohol and Drug Abuse Patient Records regulations: The Federal rules restrict any use of the information to criminally investigate or prosecute any alcohol or drug abuse patient.[facility] CenterIn the event this information is protected by the Federal Confidentiality of Alcohol and Drug Abuse Patient Records regulations: The Federal rules restrict any use of the information to criminally investigate or prosecute any alcohol or drug abuse patient.[facility] CenterIn the event this information is protected by the Federal Confidentiality of Alcohol and Drug Abuse Patient Records regulations: The Federal rules restrict any use of the information to criminally investigate or prosecute any alcohol or drug abuse patient.[facility] CenterIn the event this information is protected by the Federal Confidentiality of Alcohol and Drug Abuse Patient Records regulations: The Federal rules restrict any use of the information to criminally investigate or prosecute any alcohol or drug abuse patient.[facility] CenterIn the event this information is protected by the Federal Confidentiality of Alcohol and Drug Abuse Patient Records regulations: The Federal rules restrict any use of the information to criminally investigate or prosecute any alcohol or drug abuse patient.[facility] CenterIn the event this information is protected by the Federal Confidentiality of Alcohol and Drug Abuse Patient Records regulations: The Federal rules restrict any use of the information to criminally investigate or prosecute any alcohol or drug abuse patient.[facility] CenterIn the event this information is protected by the Federal Confidentiality of Alcohol and Drug Abuse Patient Records regulations: The Federal rules restrict any use of the information to criminally investigate or prosecute any alcohol or drug abuse patient.[facility] CenterIn the event this information is protected by the Federal Confidentiality of Alcohol and Drug Abuse Patient Records regulations: The Federal rules restrict any use of the information to criminally investigate or prosecute any alcohol or drug abuse patient.[facility] CenterIn the event this information is protected by the Federal Confidentiality of Alcohol and Drug Abuse Patient Records regulations: The Federal rules restrict any use of the information to criminally investigate or prosecute any alcohol or drug abuse patient.[facility] CenterIn the event this information is protected by the Federal Confidentiality of Alcohol and Drug Abuse Patient Records regulations: The Federal rules restrict any use of the information to criminally investigate or prosecute any alcohol or drug abuse patient.[facility] CenterIn the event this information is protected by the Federal Confidentiality of Alcohol and Drug Abuse Patient Records regulations: The Federal rules restrict any use of the information to criminally investigate or prosecute any alcohol or drug abuse patient.[facility] CenterIn the event this information is protected by the Federal Confidentiality of Alcohol and Drug Abuse Patient Records regulations: The Federal rules restrict any use of the information to criminally investigate or prosecute any alcohol or drug abuse patient.[facility] CenterIn the event this information is protected by the Federal Confidentiality of Alcohol and Drug Abuse Patient Records regulations: The Federal rules restrict any use of the information to criminally investigate or prosecute any alcohol or drug abuse patient.[facility] CenterIn the event this information is protected by the Federal Confidentiality of Alcohol and Drug Abuse Patient Records regulations: The Federal rules restrict any use of the information to criminally investigate or prosecute any alcohol or drug abuse patient.[facility] the event this information is protected by the Federal Confidentiality of Alcohol and Drug Abuse Patient Records regulations: The Federal rules restrict any use of the information to criminally investigate or prosecute any alcohol or drug abuse patient.[facility] CenterIn the event this information is protected by the Federal Confidentiality of Alcohol and Drug Abuse Patient Records regulations: The Federal rules restrict any use of the information to criminally investigate or prosecute any alcohol or drug abuse patient.[facility] CenterIn the event this information is protected by the Federal Confidentiality of Alcohol and Drug Abuse Patient Records regulations: The Federal rules restrict any use of the information to criminally investigate or prosecute any alcohol or drug abuse patient.[facility] CenterIn the event this information is protected by the Federal Confidentiality of Alcohol and Drug Abuse Patient Records regulations: The Federal rules restrict any use of the information to criminally investigate or prosecute any alcohol or drug abuse patient.[facility] CenterIn the event this information is protected by the Federal Confidentiality of Alcohol and Drug Abuse Patient Records regulations: The Federal rules restrict any use of the information to criminally investigate or prosecute any alcohol or drug abuse patient.[facility] CenterIn the event this information is protected by the Federal Confidentiality of Alcohol and Drug Abuse Patient Records regulations: The Federal rules restrict any use of the information to criminally investigate or prosecute any alcohol or drug abuse patient.[facility] CenterIn the event this information is protected by the Federal Confidentiality of Alcohol and Drug Abuse Patient Records regulations: The Federal rules restrict any use of the information to criminally investigate or prosecute any alcohol or drug abuse patient.[facility] CenterIn the event this information is protected by the Federal Confidentiality of Alcohol and Drug Abuse Patient Records regulations: The Federal rules restrict any use of the information to criminally investigate or prosecute any alcohol or drug abuse patient.[facility] CenterIn the event this information is protected by the Federal Confidentiality of Alcohol and Drug Abuse Patient Records regulations: The Federal rules restrict any use of the information to criminally investigate or prosecute any alcohol or drug abuse patient.[facility] CenterIn the event this information is protected by the Federal Confidentiality of Alcohol and Drug Abuse Patient Records regulations: The Federal rules restrict any use of the information to criminally investigate or prosecute any alcohol or drug abuse patient.[facility] CenterIn the event this information is protected by the Federal Confidentiality of Alcohol and Drug Abuse Patient Records regulations: The Federal rules restrict any use of the information to criminally investigate or prosecute any alcohol or drug abuse patient.[facility] CenterIn the event this information is protected by the Federal Confidentiality of Alcohol and Drug Abuse Patient Records regulations: The Federal rules restrict any use of the information to criminally investigate or prosecute any alcohol or drug abuse patient.[facility] CenterIn the event this information is protected by the Federal Confidentiality of Alcohol and Drug Abuse Patient Records regulations: The Federal rules restrict any use of the information to criminally investigate or prosecute any alcohol or drug abuse patient.[facility] CenterIn the event this information is protected by the Federal Confidentiality of Alcohol and Drug Abuse Patient Records regulations: The Federal rules restrict any use of the information to criminally investigate or prosecute any alcohol or drug abuse patient.[facility] CenterIn the event this information is protected by the Federal Confidentiality of Alcohol and Drug Abuse Patient Records regulations: The Federal rules restrict any use of the information to criminally investigate or prosecute any alcohol or drug abuse patient.[facility] CenterIn the event this information is protected by the Federal Confidentiality of Alcohol and Drug Abuse Patient Records regulations: The Federal rules restrict any use of the information to criminally investigate or prosecute any alcohol or drug abuse patient.[facility] CenterIn the event this information is protected by the Federal Confidentiality of Alcohol and Drug Abuse Patient Records regulations: The Federal rules restrict any use of the information to criminally investigate or prosecute any alcohol or drug abuse patient.[facility] CenterIn the event this information is protected by the Federal Confidentiality of Alcohol and Drug Abuse Patient Records regulations: The Federal rules restrict any use of the information to criminally investigate or prosecute any alcohol or drug abuse patient.[facility] CenterIn the event this information is protected by the Federal Confidentiality of Alcohol and Drug Abuse Patient Records regulations: The Federal rules restrict any use of the information to criminally investigate or prosecute any alcohol or drug abuse patient.[facility] CenterIn the event this information is protected by the Federal Confidentiality of Alcohol and Drug Abuse Patient Records regulations: The Federal rules restrict any use of the information to criminally investigate or prosecute any alcohol or drug abuse patient.[facility] CenterIn the event this information is protected by the Federal Confidentiality of Alcohol and Drug Abuse Patient Records regulations: The Federal rules restrict any use of the information to criminally investigate or prosecute any alcohol or drug abuse patient.[facility] CenterIn the event this information is protected by the Federal Confidentiality of Alcohol and Drug Abuse Patient Records regulations: The Federal rules restrict any use of the information to criminally investigate or prosecute any alcohol or drug abuse patient.[facility] CenterIn the event this information is protected by the Federal Confidentiality of Alcohol and Drug Abuse Patient Records regulations: The Federal rules restrict any use of the information to criminally investigate or prosecute any alcohol or drug abuse patient.[facility] CenterIn the event this information is protected by the Federal Confidentiality of Alcohol and Drug Abuse Patient Records regulations: The Federal rules restrict any use of the information to criminally investigate or prosecute any alcohol or drug abuse patient.[facility] CenterIn the event this information is protected by the Federal Confidentiality of Alcohol and Drug Abuse Patient Records regulations: The Federal rules restrict any use of the information to criminally investigate or prosecute any alcohol or drug abuse patient.[facility] CenterIn the event this information is protected by the Federal Confidentiality of Alcohol and Drug Abuse Patient Records regulations: The Federal rules restrict any use of the information to criminally investigate or prosecute any alcohol or drug abuse patient.[facility] CenterIn the event this information is protected by the Federal Confidentiality of Alcohol and Drug Abuse Patient Records regulations: The Federal rules restrict any use of the information to criminally investigate or prosecute any alcohol or drug abuse patient.[facility] CenterIn the event this information is protected by the Federal Confidentiality of Alcohol and Drug Abuse Patient Records regulations: The Federal rules restrict any use of the information to criminally investigate or prosecute any alcohol or drug abuse patient.[facility] CenterIn the event this information is protected by the Federal Confidentiality of Alcohol and Drug Abuse Patient Records regulations: The Federal rules restrict any use of the information to criminally investigate or prosecute any alcohol or drug abuse patient.[facility] CenterIn the event this information is protected by the Federal Confidentiality of Alcohol and Drug Abuse Patient Records regulations: The Federal rules restrict any use of the information to criminally investigate or prosecute any alcohol or drug abuse patient.[facility] CenterIn the event this information is protected by the Federal Confidentiality of Alcohol and Drug Abuse Patient Records regulations: The Federal rules restrict any use of the information to criminally investigate or prosecute any alcohol or drug abuse patient.[facility] CenterIn the event this information is protected by the Federal Confidentiality of Alcohol and Drug Abuse Patient Records regulations: The Federal rules restrict any use of the information to criminally investigate or prosecute any alcohol or drug abuse patient.[facility] CenterIn the event this information is protected by the Federal Confidentiality of Alcohol and Drug Abuse Patient Records regulations: The Federal rules restrict any use of the information to criminally investigate or prosecute any alcohol or drug abuse patient.[facility] CenterIn the event this information is protected by the Federal Confidentiality of Alcohol and Drug Abuse Patient Records regulations: The Federal rules restrict any use of the information to criminally investigate or prosecute any alcohol or drug abuse patient.[facility] CenterIn the event this information is protected by the Federal Confidentiality of Alcohol and Drug Abuse Patient Records regulations: The Federal rules restrict any use of the information to criminally investigate or prosecute any alcohol or drug abuse patient.[facility] CenterIn the event this information is protected by the Federal Confidentiality of Alcohol and Drug Abuse Patient Records regulations: The Federal rules restrict any use of the information to criminally investigate or prosecute any alcohol or drug abuse patient.[facility] CenterIn the event this information is protected by the Federal Confidentiality of Alcohol and Drug Abuse Patient Records regulations: The Federal rules restrict any use of the information to criminally investigate or prosecute any alcohol or drug abuse patient.[facility] CenterIn the event this information is protected by the Federal Confidentiality of Alcohol and Drug Abuse Patient Records regulations: The Federal rules restrict any use of the information to criminally investigate or prosecute any alcohol or drug abuse patient.[facility] CenterIn the event this information is protected by the Federal Confidentiality of Alcohol and Drug Abuse Patient Records regulations: The Federal rules restrict any use of the information to criminally investigate or prosecute any alcohol or drug abuse patient.[facility] CenterIn the event this information is protected by the Federal Confidentiality of Alcohol and Drug Abuse Patient Records regulations: The Federal rules restrict any use of the information to criminally investigate or prosecute any alcohol or drug abuse patient.[facility] CenterIn the event this information is protected by the Federal Confidentiality of Alcohol and Drug Abuse Patient Records regulations: The Federal rules restrict any use of the information to criminally investigate or prosecute any alcohol or drug abuse patient.[facility] CenterIn the event this information is protected by the Federal Confidentiality of Alcohol and Drug Abuse Patient Records regulations: The Federal rules restrict any use of the information to criminally investigate or prosecute any alcohol or drug abuse patient.[facility] CenterIn the event this information is protected by the Federal Confidentiality of Alcohol and Drug Abuse Patient Records regulations: The Federal rules restrict any use of the information to criminally investigate or prosecute any alcohol or drug abuse patient.[facility] CenterIn the event this information is protected by the Federal Confidentiality of Alcohol and Drug Abuse Patient Records regulations: The Federal rules restrict any use of the information to criminally investigate or prosecute any alcohol or drug abuse patient.[facility] CenterIn the event this information is protected by the Federal Confidentiality of Alcohol and Drug Abuse Patient Records regulations: The Federal rules restrict any use of the information to criminally investigate or prosecute any alcohol or drug abuse patient.[facility] CenterIn the event this information is protected by the Federal Confidentiality of Alcohol and Drug Abuse Patient Records regulations: The Federal rules restrict any use of the information to criminally investigate or prosecute any alcohol or drug abuse patient.[facility] CenterIn the event this information is protected by the Federal Confidentiality of Alcohol and Drug Abuse Patient Records regulations: The Federal rules restrict any use of the information to criminally investigate or prosecute any alcohol or drug abuse patient.[facility] CenterIn the event this information is protected by the Federal Confidentiality of Alcohol and Drug Abuse Patient Records regulations: The Federal rules restrict any use of the information to criminally investigate or prosecute any alcohol or drug abuse patient.[facility] CenterIn the event this information is protected by the Federal Confidentiality of Alcohol and Drug Abuse Patient Records regulations: The Federal rules restrict any use of the information to criminally investigate or prosecute any alcohol or drug abuse patient.[facility] CenterIn the event this information is protected by the Federal Confidentiality of Alcohol and Drug Abuse Patient Records regulations: The Federal rules restrict any use of the information to criminally investigate or prosecute any alcohol or drug abuse patient.[facility] the event this information is protected by the Federal Confidentiality of Alcohol and Drug Abuse Patient Records regulations: The Federal rules restrict any use of the information to criminally investigate or prosecute any alcohol or drug abuse patient.[facility] CenterIn the event this information is protected by the Federal Confidentiality of Alcohol and Drug Abuse Patient Records regulations: The Federal rules restrict any use of the information to criminally investigate or prosecute any alcohol or drug abuse patient.[facility] CenterIn the event this information is protected by the Federal Confidentiality of Alcohol and Drug Abuse Patient Records regulations: The Federal rules restrict any use of the information to criminally investigate or prosecute any alcohol or drug abuse patient.[facility] CenterIn the event this information is protected by the Federal Confidentiality of Alcohol and Drug Abuse Patient Records regulations: The Federal rules restrict any use of the information to criminally investigate or prosecute any alcohol or drug abuse patient.[facility] CenterIn the event this information is protected by the Federal Confidentiality of Alcohol and Drug Abuse Patient Records regulations: The Federal rules restrict any use of the information to criminally investigate or prosecute any alcohol or drug abuse patient.[facility] CenterIn the event this information is protected by the Federal Confidentiality of Alcohol and Drug Abuse Patient Records regulations: The Federal rules restrict any use of the information to criminally investigate or prosecute any alcohol or drug abuse patient.[facility] CenterIn the event this information is protected by the Federal Confidentiality of Alcohol and Drug Abuse Patient Records regulations: The Federal rules restrict any use of the information to criminally investigate or prosecute any alcohol or drug abuse patient.[facility] CenterIn the event this information is protected by the Federal Confidentiality of Alcohol and Drug Abuse Patient Records regulations: The Federal rules restrict any use of the information to criminally investigate or prosecute any alcohol or drug abuse patient.[facility] CenterIn the event this information is protected by the Federal Confidentiality of Alcohol and Drug Abuse Patient Records regulations: The Federal rules restrict any use of the information to criminally investigate or prosecute any alcohol or drug abuse patient.[facility] CenterIn the event this information is protected by the Federal Confidentiality of Alcohol and Drug Abuse Patient Records regulations: The Federal rules restrict any use of the information to criminally investigate or prosecute any alcohol or drug abuse patient.[facility] CenterIn the event this information is protected by the Federal Confidentiality of Alcohol and Drug Abuse Patient Records regulations: The Federal rules restrict any use of the information to criminally investigate or prosecute any alcohol or drug abuse patient.[facility] CenterIn the event this information is protected by the Federal Confidentiality of Alcohol and Drug Abuse Patient Records regulations: The Federal rules restrict any use of the information to criminally investigate or prosecute any alcohol or drug abuse patient.[facility] CenterIn the event this information is protected by the Federal Confidentiality of Alcohol and Drug Abuse Patient Records regulations: The Federal rules restrict any use of the information to criminally investigate or prosecute any alcohol or drug abuse patient.[facility] CenterIn the event this information is protected by the Federal Confidentiality of Alcohol and Drug Abuse Patient Records regulations: The Federal rules restrict any use of the information to criminally investigate or prosecute any alcohol or drug abuse patient.[facility] CenterIn the event this information is protected by the Federal Confidentiality of Alcohol and Drug Abuse Patient Records regulations: The Federal rules restrict any use of the information to criminally investigate or prosecute any alcohol or drug abuse patient.[facility] CenterIn the event this information is protected by the Federal Confidentiality of Alcohol and Drug Abuse Patient Records regulations: The Federal rules restrict any use of the information to criminally investigate or prosecute any alcohol or drug abuse patient.[facility] CenterIn the event this information is protected by the Federal Confidentiality of Alcohol and Drug Abuse Patient Records regulations: The Federal rules restrict any use of the information to criminally investigate or prosecute any alcohol or drug abuse patient.[facility] CenterIn the event this information is protected by the Federal Confidentiality of Alcohol and Drug Abuse Patient Records regulations: The Federal rules restrict any use of the information to criminally investigate or prosecute any alcohol or drug abuse patient.[facility] CenterIn the event this information is protected by the Federal Confidentiality of Alcohol and Drug Abuse Patient Records regulations: The Federal rules restrict any use of the information to criminally investigate or prosecute any alcohol or drug abuse patient.[facility] CenterIn the event this information is protected by the Federal Confidentiality of Alcohol and Drug Abuse Patient Records regulations: The Federal rules restrict any use of the information to criminally investigate or prosecute any alcohol or drug abuse patient.[facility] CenterIn the event this information is protected by the Federal Confidentiality of Alcohol and Drug Abuse Patient Records regulations: The Federal rules restrict any use of the information to criminally investigate or prosecute any alcohol or drug abuse patient.[facility] CenterIn the event this information is protected by the Federal Confidentiality of Alcohol and Drug Abuse Patient Records regulations: The Federal rules restrict any use of the information to criminally investigate or prosecute any alcohol or drug abuse patient.[facility] CenterIn the event this information is protected by the Federal Confidentiality of Alcohol and Drug Abuse Patient Records regulations: The Federal rules restrict any use of the information to criminally investigate or prosecute any alcohol or drug abuse patient.[facility] CenterIn the event this information is protected by the Federal Confidentiality of Alcohol and Drug Abuse Patient Records regulations: The Federal rules restrict any use of the information to criminally investigate or prosecute any alcohol or drug abuse patient.[facility] CenterIn the event this information is protected by the Federal Confidentiality of Alcohol and Drug Abuse Patient Records regulations: The Federal rules restrict any use of the information to criminally investigate or prosecute any alcohol or drug abuse patient.[facility] CenterIn the event this information is protected by the Federal Confidentiality of Alcohol and Drug Abuse Patient Records regulations: The Federal rules restrict any use of the information to criminally investigate or prosecute any alcohol or drug abuse patient.[facility] CenterIn the event this information is protected by the Federal Confidentiality of Alcohol and Drug Abuse Patient Records regulations: The Federal rules restrict any use of the information to criminally investigate or prosecute any alcohol or drug abuse patient.[facility] CenterIn the event this information is protected by the Federal Confidentiality of Alcohol and Drug Abuse Patient Records regulations: The Federal rules restrict any use of the information to criminally investigate or prosecute any alcohol or drug abuse patient.[facility] CenterIn the event this information is protected by the Federal Confidentiality of Alcohol and Drug Abuse Patient Records regulations: The Federal rules restrict any use of the information to criminally investigate or prosecute any alcohol or drug abuse patient.[facility] CenterIn the event this information is protected by the Federal Confidentiality of Alcohol and Drug Abuse Patient Records regulations: The Federal rules restrict any use of the information to criminally investigate or prosecute any alcohol or drug abuse patient.[facility] CenterIn the event this information is protected by the Federal Confidentiality of Alcohol and Drug Abuse Patient Records regulations: The Federal rules restrict any use of the information to criminally investigate or prosecute any alcohol or drug abuse patient.[facility] CenterIn the event this information is protected by the Federal Confidentiality of Alcohol and Drug Abuse Patient Records regulations: The Federal rules restrict any use of the information to criminally investigate or prosecute any alcohol or drug abuse patient.[facility] CenterIn the event this information is protected by the Federal Confidentiality of Alcohol and Drug Abuse Patient Records regulations: The Federal rules restrict any use of the information to criminally investigate or prosecute any alcohol or drug abuse patient.[facility] CenterIn the event this information is protected by the Federal Confidentiality of Alcohol and Drug Abuse Patient Records regulations: The Federal rules restrict any use of the information to criminally investigate or prosecute any alcohol or drug abuse patient.[facility] CenterIn the event this information is protected by the Federal Confidentiality of Alcohol and Drug Abuse Patient Records regulations: The Federal rules restrict any use of the information to criminally investigate or prosecute any alcohol or drug abuse patient.[facility] CenterIn the event this information is protected by the Federal Confidentiality of Alcohol and Drug Abuse Patient Records regulations: The Federal rules restrict any use of the information to criminally investigate or prosecute any alcohol or drug abuse patient.[facility] CenterIn the event this information is protected by the Federal Confidentiality of Alcohol and Drug Abuse Patient Records regulations: The Federal rules restrict any use of the information to criminally investigate or prosecute any alcohol or drug abuse patient.[facility] CenterIn the event this information is protected by the Federal Confidentiality of Alcohol and Drug Abuse Patient Records regulations: The Federal rules restrict any use of the information to criminally investigate or prosecute any alcohol or drug abuse patient.[facility] CenterIn the event this information is protected by the Federal Confidentiality of Alcohol and Drug Abuse Patient Records regulations: The Federal rules restrict any use of the information to criminally investigate or prosecute any alcohol or drug abuse patient.[facility] CenterIn the event this information is protected by the Federal Confidentiality of Alcohol and Drug Abuse Patient Records regulations: The Federal rules restrict any use of the information to criminally investigate or prosecute any alcohol or drug abuse patient.[facility] CenterIn the event this information is protected by the Federal Confidentiality of Alcohol and Drug Abuse Patient Records regulations: The Federal rules restrict any use of the information to criminally investigate or prosecute any alcohol or drug abuse patient.[facility] CenterIn the event this information is protected by the Federal Confidentiality of Alcohol and Drug Abuse Patient Records regulations: The Federal rules restrict any use of the information to criminally investigate or prosecute any alcohol or drug abuse patient.[facility] CenterIn the event this information is protected by the Federal Confidentiality of Alcohol and Drug Abuse Patient Records regulations: The Federal rules restrict any use of the information to criminally investigate or prosecute any alcohol or drug abuse patient.[facility] CenterIn the event this information is protected by the Federal Confidentiality of Alcohol and Drug Abuse Patient Records regulations: The Federal rules restrict any use of the information to criminally investigate or prosecute any alcohol or drug abuse patient.[facility] CenterIn the event this information is protected by the Federal Confidentiality of Alcohol and Drug Abuse Patient Records regulations: The Federal rules restrict any use of the information to criminally investigate or prosecute any alcohol or drug abuse patient.[facility] CenterIn the event this information is protected by the Federal Confidentiality of Alcohol and Drug Abuse Patient Records regulations: The Federal rules restrict any use of the information to criminally investigate or prosecute any alcohol or drug abuse patient.[facility] CenterIn the event this information is protected by the Federal Confidentiality of Alcohol and Drug Abuse Patient Records regulations: The Federal rules restrict any use of the information to criminally investigate or prosecute any alcohol or drug abuse patient.[facility] CenterIn the event this information is protected by the Federal Confidentiality of Alcohol and Drug Abuse Patient Records regulations: The Federal rules restrict any use of the information to criminally investigate or prosecute any alcohol or drug abuse patient.[facility] CenterIn the event this information is protected by the Federal Confidentiality of Alcohol and Drug Abuse Patient Records regulations: The Federal rules restrict any use of the information to criminally investigate or prosecute any alcohol or drug abuse patient.[facility] CenterIn the event this information is protected by the Federal Confidentiality of Alcohol and Drug Abuse Patient Records regulations: The Federal rules restrict any use of the information to criminally investigate or prosecute any alcohol or drug abuse patient.[facility] the event this information is protected by the Federal Confidentiality of Alcohol and Drug Abuse Patient Records regulations: The Federal rules restrict any use of the information to criminally investigate or prosecute any alcohol or drug abuse patient.[facility] CenterIn the event this information is protected by the Federal Confidentiality of Alcohol and Drug Abuse Patient Records regulations: The Federal rules restrict any use of the information to criminally investigate or prosecute any alcohol or drug abuse patient.[facility] CenterIn the event this information is protected by the Federal Confidentiality of Alcohol and Drug Abuse Patient Records regulations: The Federal rules restrict any use of the information to criminally investigate or prosecute any alcohol or drug abuse patient.[facility] CenterIn the event this information is protected by the Federal Confidentiality of Alcohol and Drug Abuse Patient Records regulations: The Federal rules restrict any use of the information to criminally investigate or prosecute any alcohol or drug abuse patient.[facility] CenterIn the event this information is protected by the Federal Confidentiality of Alcohol and Drug Abuse Patient Records regulations: The Federal rules restrict any use of the information to criminally investigate or prosecute any alcohol or drug abuse patient.[facility] CenterIn the event this information is protected by the Federal Confidentiality of Alcohol and Drug Abuse Patient Records regulations: The Federal rules restrict any use of the information to criminally investigate or prosecute any alcohol or drug abuse patient.[facility] CenterIn the event this information is protected by the Federal Confidentiality of Alcohol and Drug Abuse Patient Records regulations: The Federal rules restrict any use of the information to criminally investigate or prosecute any alcohol or drug abuse patient.[facility] CenterIn the event this information is protected by the Federal Confidentiality of Alcohol and Drug Abuse Patient Records regulations: The Federal rules restrict any use of the information to criminally investigate or prosecute any alcohol or drug abuse patient.[facility] CenterIn the event this information is protected by the Federal Confidentiality of Alcohol and Drug Abuse Patient Records regulations: The Federal rules restrict any use of the information to criminally investigate or prosecute any alcohol or drug abuse patient.[facility] CenterIn the event this information is protected by the Federal Confidentiality of Alcohol and Drug Abuse Patient Records regulations: The Federal rules restrict any use of the information to criminally investigate or prosecute any alcohol or drug abuse patient.[facility] CenterIn the event this information is protected by the Federal Confidentiality of Alcohol and Drug Abuse Patient Records regulations: The Federal rules restrict any use of the information to criminally investigate or prosecute any alcohol or drug abuse patient.[facility] CenterIn the event this information is protected by the Federal Confidentiality of Alcohol and Drug Abuse Patient Records regulations: The Federal rules restrict any use of the information to criminally investigate or prosecute any alcohol or drug abuse patient.[facility] CenterIn the event this information is protected by the Federal Confidentiality of Alcohol and Drug Abuse Patient Records regulations: The Federal rules restrict any use of the information to criminally investigate or prosecute any alcohol or drug abuse patient.[facility] CenterIn the event this information is protected by the Federal Confidentiality of Alcohol and Drug Abuse Patient Records regulations: The Federal rules restrict any use of the information to criminally investigate or prosecute any alcohol or drug abuse patient.[facility] CenterIn the event this information is protected by the Federal Confidentiality of Alcohol and Drug Abuse Patient Records regulations: The Federal rules restrict any use of the information to criminally investigate or prosecute any alcohol or drug abuse patient.[facility] CenterIn the event this information is protected by the Federal Confidentiality of Alcohol and Drug Abuse Patient Records regulations: The Federal rules restrict any use of the information to criminally investigate or prosecute any alcohol or drug abuse patient.[facility] CenterIn the event this information is protected by the Federal Confidentiality of Alcohol and Drug Abuse Patient Records regulations: The Federal rules restrict any use of the information to criminally investigate or prosecute any alcohol or drug abuse patient.[facility] CenterIn the event this information is protected by the Federal Confidentiality of Alcohol and Drug Abuse Patient Records regulations: The Federal rules restrict any use of the information to criminally investigate or prosecute any alcohol or drug abuse patient.[facility] CenterIn the event this information is protected by the Federal Confidentiality of Alcohol and Drug Abuse Patient Records regulations: The Federal rules restrict any use of the information to criminally investigate or prosecute any alcohol or drug abuse patient.[facility] CenterIn the event this information is protected by the Federal Confidentiality of Alcohol and Drug Abuse Patient Records regulations: The Federal rules restrict any use of the information to criminally investigate or prosecute any alcohol or drug abuse patient.[facility] CenterIn the event this information is protected by the Federal Confidentiality of Alcohol and Drug Abuse Patient Records regulations: The Federal rules restrict any use of the information to criminally investigate or prosecute any alcohol or drug abuse patient.[facility] CenterIn the event this information is protected by the Federal Confidentiality of Alcohol and Drug Abuse Patient Records regulations: The Federal rules restrict any use of the information to criminally investigate or prosecute any alcohol or drug abuse patient.[facility] CenterIn the event this information is protected by the Federal Confidentiality of Alcohol and Drug Abuse Patient Records regulations: The Federal rules restrict any use of the information to criminally investigate or prosecute any alcohol or drug abuse patient.[facility] CenterIn the event this information is protected by the Federal Confidentiality of Alcohol and Drug Abuse Patient Records regulations: The Federal rules restrict any use of the information to criminally investigate or prosecute any alcohol or drug abuse patient.[facility] CenterIn the event this information is protected by the Federal Confidentiality of Alcohol and Drug Abuse Patient Records regulations: The Federal rules restrict any use of the information to criminally investigate or prosecute any alcohol or drug abuse patient.[facility] CenterIn the event this information is protected by the Federal Confidentiality of Alcohol and Drug Abuse Patient Records regulations: The Federal rules restrict any use of the information to criminally investigate or prosecute any alcohol or drug abuse patient.[facility] CenterIn the event this information is protected by the Federal Confidentiality of Alcohol and Drug Abuse Patient Records regulations: The Federal rules restrict any use of the information to criminally investigate or prosecute any alcohol or drug abuse patient.[facility] CenterIn the event this information is protected by the Federal Confidentiality of Alcohol and Drug Abuse Patient Records regulations: The Federal rules restrict any use of the information to criminally investigate or prosecute any alcohol or drug abuse patient.[facility] CenterIn the event this information is protected by the Federal Confidentiality of Alcohol and Drug Abuse Patient Records regulations: The Federal rules restrict any use of the information to criminally investigate or prosecute any alcohol or drug abuse patient.[facility] CenterIn the event this information is protected by the Federal Confidentiality of Alcohol and Drug Abuse Patient Records regulations: The Federal rules restrict any use of the information to criminally investigate or prosecute any alcohol or drug abuse patient.[facility] CenterIn the event this information is protected by the Federal Confidentiality of Alcohol and Drug Abuse Patient Records regulations: The Federal rules restrict any use of the information to criminally investigate or prosecute any alcohol or drug abuse patient.[facility] CenterIn the event this information is protected by the Federal Confidentiality of Alcohol and Drug Abuse Patient Records regulations: The Federal rules restrict any use of the information to criminally investigate or prosecute any alcohol or drug abuse patient.[facility] CenterIn the event this information is protected by the Federal Confidentiality of Alcohol and Drug Abuse Patient Records regulations: The Federal rules restrict any use of the information to criminally investigate or prosecute any alcohol or drug abuse patient.[facility] CenterIn the event this information is protected by the Federal Confidentiality of Alcohol and Drug Abuse Patient Records regulations: The Federal rules restrict any use of the information to criminally investigate or prosecute any alcohol or drug abuse patient.[facility] CenterIn the event this information is protected by the Federal Confidentiality of Alcohol and Drug Abuse Patient Records regulations: The Federal rules restrict any use of the information to criminally investigate or prosecute any alcohol or drug abuse patient.[facility] CenterIn the event this information is protected by the Federal Confidentiality of Alcohol and Drug Abuse Patient Records regulations: The Federal rules restrict any use of the information to criminally investigate or prosecute any alcohol or drug abuse patient.[facility] CenterIn the event this information is protected by the Federal Confidentiality of Alcohol and Drug Abuse Patient Records regulations: The Federal rules restrict any use of the information to criminally investigate or prosecute any alcohol or drug abuse patient.[facility] CenterIn the event this information is protected by the Federal Confidentiality of Alcohol and Drug Abuse Patient Records regulations: The Federal rules restrict any use of the information to criminally investigate or prosecute any alcohol or drug abuse patient.[facility] CenterIn the event this information is protected by the Federal Confidentiality of Alcohol and Drug Abuse Patient Records regulations: The Federal rules restrict any use of the information to criminally investigate or prosecute any alcohol or drug abuse patient.[facility] CenterIn the event this information is protected by the Federal Confidentiality of Alcohol and Drug Abuse Patient Records regulations: The Federal rules restrict any use of the information to criminally investigate or prosecute any alcohol or drug abuse patient.[facility] CenterIn the event this information is protected by the Federal Confidentiality of Alcohol and Drug Abuse Patient Records regulations: The Federal rules restrict any use of the information to criminally investigate or prosecute any alcohol or drug abuse patient.[facility] CenterIn the event this information is protected by the Federal Confidentiality of Alcohol and Drug Abuse Patient Records regulations: The Federal rules restrict any use of the information to criminally investigate or prosecute any alcohol or drug abuse patient.[facility] CenterIn the event this information is protected by the Federal Confidentiality of Alcohol and Drug Abuse Patient Records regulations: The Federal rules restrict any use of the information to criminally investigate or prosecute any alcohol or drug abuse patient.[facility] CenterIn the event this information is protected by the Federal Confidentiality of Alcohol and Drug Abuse Patient Records regulations: The Federal rules restrict any use of the information to criminally investigate or prosecute any alcohol or drug abuse patient.[facility] CenterIn the event this information is protected by the Federal Confidentiality of Alcohol and Drug Abuse Patient Records regulations: The Federal rules restrict any use of the information to criminally investigate or prosecute any alcohol or drug abuse patient.[facility] CenterIn the event this information is protected by the Federal Confidentiality of Alcohol and Drug Abuse Patient Records regulations: The Federal rules restrict any use of the information to criminally investigate or prosecute any alcohol or drug abuse patient.[facility] CenterIn the event this information is protected by the Federal Confidentiality of Alcohol and Drug Abuse Patient Records regulations: The Federal rules restrict any use of the information to criminally investigate or prosecute any alcohol or drug abuse patient.[facility] CenterIn the event this information is protected by the Federal Confidentiality of Alcohol and Drug Abuse Patient Records regulations: The Federal rules restrict any use of the information to criminally investigate or prosecute any alcohol or drug abuse patient.[facility] CenterIn the event this information is protected by the Federal Confidentiality of Alcohol and Drug Abuse Patient Records regulations: The Federal rules restrict any use of the information to criminally investigate or prosecute any alcohol or drug abuse patient.[facility] CenterIn the event this information is protected by the Federal Confidentiality of Alcohol and Drug Abuse Patient Records regulations: The Federal rules restrict any use of the information to criminally investigate or prosecute any alcohol or drug abuse patient.[facility] CenterIn the event this information is protected by the Federal Confidentiality of Alcohol and Drug Abuse Patient Records regulations: The Federal rules restrict any use of the information to criminally investigate or prosecute any alcohol or drug abuse patient.[facility] Reason for Visit (unrecogniz ed section and [...] Date Comments Refill Request 12/20/[address] [facility] HH OT POC Reason Onset Date [...] follow up Reason Onset Date Comments [facility] outreach 03/11/2022 in Sight questionnaire follow up Reason Onset Date Comments Population Health Navigation Outreach 03/17/2022 [facility] Reason Comments Social Work Services Reason Onset Date Comments Follow Up Immunizations 03/20/2022 Flu vaccination Reason Comments Patient Question Regarding return of Cologuard Reason Onset Date Comments [facility] [place] 04/07/2022 in Sight questionnaire follow up Reason Comments Appointment Appointment Reason Onset Date Comments [facility] 05/07/2022 Check in call Reason Comments Refill Request Reason Onset Date Comments [facility] 06/06/2022 Check in call Reason Onset Date Comments [facility] 06/10/2022 Check in call Reason Onset Date Comments [facility] Health Navigation Outreach 06/13/2022 hcc Reason Comments Established Patient Specialty Diagnoses / Procedures Referred By Contac t Referred To Contact Pulmonary and Critical Care Medicine Diagnoses Centrilobular emphysema (HCC) Procedures CONSULT TO PULM/CRITICAL CARE OFFICE/OUTPATIENT [facility] 60-74 MINUTES Jalyn Smith MD [address] [place] [address] Referral ID Status Reason Start Date Expiration Date V isits Requested Visits Authorized [id number] Closed PCP Requested Referral 03/20/2022 03/20/2023 1 1 Reason Onset Date Comments Refill Request 06/26/2022 Reason Onset Date Comments Refill Request 06/30/2022 Reason Onset Date Comments Refill Request 07/02/2022 Reason Onset Date Comments [facility] 07/08/2022 Check in call Reason Comments Orders Reason Comments Wound Check Right lower leg new wound. Also old wound on back on left leg is seeping again. Reason Onset Date Comments Refill Request 07/21/2022 Reason Onset Date Comments [facility] 08/06/2022 Check in call Reason Onset Date Comments [facility] 09/11/2022 Check in call Reason Comments Information Reason Comments Follow Up Reason Onset Date Comments Refill Request 10/15/2022 Reason Onset Date Comments M 10/14/2022 Check in call Reason Onset Date Comments [facility] monitoring 11/13/2022 CD telepho joshua Reason Comments Weakness Would like referral for home health and therapy Reason Onset Date [place] [facility] [place] CD telepho joshua Reason Comments 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, abdominal (HCC) Procedures CTA CHEST (NONGATED) W IVCON CT ANGIOGRAPHY CHEST W/CONTRAST/NONCONTRAST Herminia Carrera, TRANSIT COACH OPERATOR.KIL[employer] STOKER [address] [place] [address] [place] [address] Referral ID Status Reason Start Date Expiration Date V isits Requested Visits Authorized [id number] Closed Auto-Generat ed Referral Patient Cleared - [...] OXIMETRY MULTIPLE Zackery Mckeon MD [address] [place] [address] Respiratory [place] [address] [place] [id number] Referral ID Status Reason Start Date Expiration Date V isits Requested Visits Authorized [id number] Closed Auto-Generate d Referral 09/10/2023 10/09/2024 1 1 Reason Onset Date Comments Refill Request 10/02/2023 Specialty Diagnoses / Procedures Referred By Contac t Referred To Contact CT IMAGING Diagnoses Abdominal aortic aneurysm (AAA) without rupture, unspecified part (HCC) Dissection of thoracoabdominal aorta (HCC) Procedures CTA ABD/PEL W IVCON CT ANGIO ABD&PLVIS CNTRST MTRL W/WO CNTRST Yaniv Carvajal MD [address] [place] [address] [id number] [place] [address] Referral ID Status Reason Start Date Expiration Date V isits Requested Visits Authorized [id number] Closed Auto-Generate d Referral 10/14/2023 11/13/2023 1 [...] Health Navigation Outreach 08/25/2024 [employer] [place] Reason Comments Patient Question Reason Comments 6 Month Exam ER F/U Reason Onset Date Comments Refill Request 09/20/2024 Reason Onset Date Comments Refill Request 09/30/2024 Reason Onset Date Comments Refill Request 10/03/2024 Reason Onset Date Comments Damper Worker- Other 10/10/2024 Reason Onset Date Comments Population Health Navigation Outreach 11/21/2024 [employer] [place] Reason Onset Date Comments Population Health Navigation Outreach 12/21/2024 [employer] [place] Reason Comments Surgical Clearance Reason Onset Date Comments Population Health Navigation Outreach 01/20/2025 [employer] Care Teams (unrecognized sec tion and content) [employer] Pcb Designer Relationship Specialty Start Date End Date Jalyn Smith MD [address] [facility] [place] [address] PCP - General Family Practice 01/28/13 Brady Avila MD [address] [place] [address] Pulmonary and Critical Care Medicine 11/01/20 [employer] Pcb Designer Relationship Specialty Start Date End Date Jalyn Smith MD [address] [facility] [place] [address] PCP - General Family Practice 01/28/13 Brady Avila MD [address] [place] [address] Pulmonary and Critical Care Medicine 11/01/20 [employer] Pcb Designer Relationship Specialty Start Date End Date Jalyn Smith MD [address] [facility] [place] [address] PCP - General Family Practice 01/28/13 Brady Avila MD [address] [place] [address] Pulmonary and Critical Care Medicine 11/01/20 [employer] Pcb Designer Relationship Specialty Start Date End Date Jalyn Smith MD [address] [facility] [place] [address] PCP - General Family Practice 01/28/13 Brady Avila MD [address] [place] [place] [address] Pulmonary and Critical Care Medicine 11/01/20 [employer] Pcb Designer Relationship Specialty Start Date End Date Jalyn Smith MD [address] [facility] [place] [address] PCP - General Family Practice 01/28/13 Brady Avila MD [address] [place] [address] Pulmonary and Critical Care Medicine 11/01/20 [employer] Pcb Designer Relationship Specialty Start Date End Date Jalyn Smith MD [address] [facility] [place] [address] PCP - General Family Practice 01/28/13 Brady Avila MD [address] [place] [address] Pulmonary and Critical Care Medicine 11/01/20 [employer] Pcb Designer Relationship Specialty Start Date End Date Jalyn Smith MD [address] [facility] [place] [address] PCP - General Family Practice 01/28/13 Brady Avila MD [address] [place] [address] Pulmonary and Critical Care Medicine 11/01/20 [employer] Pcb Designer Relationship Specialty Start Date End Date Jalyn Smith MD [address] [facility] [place] [address] PCP - General Family Practice 01/28/13 Brady Avila MD [address] [place] [address] Pulmonary and Critical Care Medicine 11/01/20 Printed Circuit Board Pcb Designer Relationship Specialty Start Date End Date Jalyn Smith MD [address] [facility] [place] [address] PCP - General Family Practice 01/28/13 Brady Avila MD [address] [place] [address] Pulmonary and Critical Care Medicine 11/01/20 Printed Circuit Board Pcb Designer Relationship Specialty Start Date End Date Jalyn Smith MD [address] [facility] [place] [address] PCP - General Family Practice 01/28/13 Brady Avila MD [address] [place] [address] Pulmonary and Critical Care Medicine 11/01/20 Printed Circuit Board Pcb Designer Relationship Specialty Start Date End Date Jalyn Smith MD [address] [facility] [place] [address] PCP - General Family Practice 01/28/13 Brady Avila MD [address] [place] [address] Pulmonary and Critical Care Medicine 11/01/20 Printed Circuit Board Pcb Designer Relationship Specialty Start Date End Date Lusi, Jalyn J, MD [address] [facility] [place] [address] PCP - General Family Practice 01/28/13 Brady Avila MD [address] [facility] [place] [address] Pulmonary and Critical Care Medicine 11/01/20 Printed Circuit Board Pcb Designer Relationship Specialty Start Date End Date Jalyn Smith MD [address] [place] [address] PCP - General Family Practice 01/28/13 Brady Avila MD [address] [place] [facility] [place] [address] Pulmonary and Critical Care Medicine 11/01/20October, Darlene Islas RN [address] [place] [address] Damper Worker Unspecified 02/19/22 Printed Circuit Board Pcb Designer Relationship Specialty Start Date End Date Jalyn Smith MD [address] [place] [address] PCP - General Family Medicine 01/28/13 Brady Avila MD [address] [place] [address] Pulmonary and Critical Care Medicine 11/01/20October, Darlene Islas RN [address] [place] [place] [address] Damper Worker Unspecified 02/19/22 Printed Circuit Board Pcb Designer Relationship Specialty Start Date End Date Jalyn Smith MD [address] [place] [address] PCP - General Family Medicine 01/28/13 Brady Avila MD [address] [place] [address] Pulmonary and Critical Care Medicine 11/01/20October, Darlene Islas RN [address] [place] [place] [address] Damper Worker Unspecified 02/19/22 Printed Circuit Board Pcb Designer Relationship Specialty Start Date End Date Jalyn Smith MD [address] [facility] [place] [address] PCP - General Family Medicine 01/28/13 Brady Avila MD [address] [place] [address] Pulmonary and Critical Care Medicine 11/01/20October, Darlene Islas RN [address] [place] [address] Damper Worker Unspecified 02/19/22 Printed Circuit Board Pcb Designer Relationship Specialty Start Date End Date Jalyn Smith MD [address] [facility] [place] [address] PCP - General Family Medicine 01/28/13 Brady Avila MD [address] [place] [address] Pulmonary and Critical Care Medicine 11/01/20October, Darlene Islas RN [address] [place] [address] Damper Worker Unspecified 02/19/22 Printed Circuit Board Pcb Designer Relationship Specialty Start Date End Date Jalyn Smith MD [address] [facility] [place] [address] PCP - General Family Medicine 01/28/13 Brady Avila MD [address] [place] [address] Pulmonary and Critical Care Medicine 11/01/20October, Darlene Islas RN [address] [facility] [place] [address] Damper Worker Unspecified 02/19/22 Printed Circuit Board Pcb Designer Relationship Specialty Start Date End Date Jalyn Smith MD [address] [facility] [place] [address] PCP - General Family Medicine 01/28/13 Brady Avila MD [address] [place] [address] Pulmonary and Critical Care Medicine 11/01/20 Yanni, Darlene Islas RN [address] [place] [address] Damper Worker Unspecified 02/19/22 Printed Circuit Board Pcb Designer Relationship Specialty Start Date End Date Jalyn Smith MD [address] [facility] [place] [address] PCP - General Family Medicine 01/28/13 Brady Avila MD [address] [place] [address] Pulmonary and Critical Care Medicine 11/01/20October, Darlene Islas RN [address] [place] [address] Damper Worker Unspecified 02/19/22 Printed Circuit Board Pcb Designer Relationship Specialty Start Date End Date Jalyn Smith MD [address] [facility] [place] [address] PCP - General Family Medicine 01/28/13 Brady Avila MD [address] [place] [address] Pulmonary and Critical Care Medicine 11/01/20October, Darlene Islas RN [address] [place] [address] Damper Worker Unspecified 02/19/22 Printed Circuit Board Pcb Designer Relationship Specialty Start Date End Date Jalyn Smith MD [address] [facility] [place] [address] PCP - General Family Medicine 01/28/13 Brady Avila MD [address] [place] [address] Pulmonary and Critical Care Medicine 11/01/20October, Darlene Islas RN [address] [place] [address] Damper Worker Unspecified 02/19/22 Printed Circuit Board Pcb Designer Relationship Specialty Start Date End Date Jalyn Smith MD [address] [facility] [place] [address] PCP - General Family Medicine 01/28/13 Brady Avila MD [address] [facility] [place] [address] Pulmonary and Critical Care Medicine 11/01/20October, Darlene Islas RN [address] [place] [address] Damper Worker Unspecified 02/19/22 Printed Circuit Board Pcb Designer Relationship Specialty Start Date End Date Jalyn Smith MD [address] [facility] [place] [address] PCP - General Family Medicine 01/28/13 Brady Avila MD [address] [place] [address] Pulmonary and Critical Care Medicine 11/01/20October, Darlene Isals RN [address] [place] [address] Damper Worker Unspecified 02/19/22 Printed Circuit Board Pcb Designer Relationship Specialty Start Date End Date Jalyn Smith MD [address] [facility] [place] [address] PCP - General Family Medicine 01/28/13 Brady Avila MD [address] [place] [address] Pulmonary and Critical Care Medicine 11/01/20October, Darlene Islas RN [address] [facility] [place] [address] Damper Worker Unspecified 02/19/22 Printed Circuit Board Pcb Designer Relationship Specialty Start Date End Date Jalyn Smith MD [address] [facility] [place] [address] PCP - General Family Medicine 01/28/13 Brady Avila MD [address] [place] [address] Pulmonary and Critical Care Medicine 11/01/20October, Darlene Islas RN [address] [facility] [place] [address] Damper Worker Unspecified 02/19/22 Printed Circuit Board Pcb Designer Relationship Specialty Start Date End Date Jalyn Smith MD [address] [facility] [place] [address] PCP - General Family Medicine 01/28/13 Brady Avila MD [address] [place] [address] Pulmonary and Critical Care Medicine 11/01/20October, Darlene Islas RN [address] [place] [address] Damper Worker Unspecified 02/19/22 Printed Circuit Board Pcb Designer Relationship Specialty Start Date End Date Jalyn Smith MD [address] [facility] [place] [address] PCP - General Family Medicine 01/28/13 Brady Avila MD [address] [place] [address] Pulmonary and Critical Care Medicine 11/01/20October, Darlene Islas RN [address] [place] [address] Damper Worker Unspecified 02/19/22 Printed Circuit Board Pcb Designer Relationship Specialty Start Date End Date Jalyn Smith MD [address] [facility] [place] [address] PCP - General Family Medicine 01/28/13 Brady Avila MD [address] [place] [address] Pulmonary and Critical Care Medicine 11/01/20October, Darlene Islas RN [address] [place] [address] Damper Worker Unspecified 02/19/22 Printed Circuit Board Pcb Designer Relationship Specialty Start Date End Date Jalyn Smith MD [address] [facility] [place] [address] PCP - General Family Medicine 01/28/13 Brady Avila MD [address] [place] [address] Pulmonary and Critical Care Medicine 11/01/20October, Darlene Islas RN [address] [place] [address] Damper Worker Unspecified 02/19/22 Team Status: Active Member Role Status Dates Dr. Jalyn Smith MD Family Provider Active Dr. Jalyn Smith MD Primary Care Provider Active Team Status: Inactive Member Role Status Dates Dr. Jalyn Smith MD Primary Care Provider Active Dr. Nisha Magallon DO Attending Provider Active Printed Circuit Board Pcb Designer Relationship Specialty Start Date End Date Jalyn Smith MD [address] [facility] [place] [address] PCP - General Family Medicine 01/28/13 Brady Avila MD [address] [place] [address] Pulmonary and Critical Care Medicine 11/01/20October, Darlene Islas RN [address] [place] [address] Damper Worker Unspecified 02/19/22 Printed Circuit Board Pcb Designer Relationship Specialty Start Date End Date Jalyn Smith MD [address] [facility] [place] [address] PCP - General Family Medicine 01/28/13 Brady Avila MD [address] [facility], [place] [address]171 Pulmonary and Critical Care Medicine 11/01/20October, Darlene Islas RN [address] [place] [address] Damper Worker Unspecified 02/19/22 Team Status: Inactive Member Role Status Dates Dr. Jalyn Smith MD Primary Care Provider Active Dr. Nisha Magallon DO Attending Provider, Referring Prov ider Active Printed Circuit Board Pcb Designer Relationship Specialty Start Date End Date Jalyn Smith MD [address] [facility] [place] [address] PCP - General Family Medicine 01/28/13 Brady Avila MD [address] [place] [place] [address] Pulmonary and Critical Care Medicine 11/01/20October, Darlene Islas RN [address] [place] [address] Damper Worker Unspecified 02/19/22 Printed Circuit Board Pcb Designer Relationship Specialty Start Date End Date Jalyn Smith MD [address] [facility] [place] [address] PCP - General Family Medicine 01/28/13 Brady Avila MD [address] [place] [address] Pulmonary and Critical Care Medicine 11/01/20 Selene Anaya RN [address] [place], [place] 3590131 Damper Worker Internal Medicine 11/10/22 Printed Circuit Board Pcb Designer Relationship Specialty Start Date End Date Jalyn Smith MD [address] [facility] [place] [address] PCP - General Family Medicine 01/28/13 Brady Avila MD [address] [place] [address] Pulmonary and Critical Care Medicine 11/01/20 Selene Anaya RN [address] [place], [place] 1251831 Damper Worker Internal Medicine 11/10/22 Printed Circuit Board Pcb Designer Relationship Specialty Start Date End Date Jalyn Smith MD [address] [facility] [place] [address] PCP - General Family Medicine 01/28/13 Brady Avila MD [address] [place] [address] Pulmonary and Critical Care Medicine 11/01/20 Selene Anaya RN [address] [place], [place] 1280831 Damper Worker Internal Medicine 11/10/22 Team Status: Active Member Role Status Dates Dr. Jalyn Smith MD Primary Care Provider Active Dr. Hector Fields DO Emergency Provider Active Dr. Burke Patterson MD Admit Provider, Attending Pro vider Active Printed Circuit Board Pcb Designer Relationship Specialty Start Date End Date Jalyn Smith MD [address] [facility] [place], [place] [id number] PCP - General Family Medicine 01/28/13 Brady Avila MD [address] [facility] [place] [place] [address] Pulmonary and Critical Care Medicine 11/01/20 Selene Anaya, RN [address] [place] [address] Damper Worker Internal Medicine 11/10/22 Printed Circuit Board Pcb Designer Relationship Specialty Start Date End Date Jalyn Smith MD [address] [place], [place] [id number] PCP - General Family Medicine 01/28/13 Brady Avila MD [address] [place], [place] [id number] Pulmonary and Critical Care Medicine 11/01/20 Selene Anaya RN [address] [place] [address] Damper Worker Internal Medicine 11/10/22 Team Status: Active Member [...] Dr. Angle Latham MD Other Provider Active Printed Circuit Board Pcb Designer Relationship Specialty Start Date End Date Jalyn Smith MD [address] [place], [place] [address]8431 PCP - General Family Medicine 01/28/13 Brady Avila MD [address] [facility] [place], [place] [address] Pulmonary and Critical Care Medicine 11/01/20 Selene Anaya RN [address] [place] [address] Damper Worker Internal Medicine 11/10/22 Team Status: Inactive Member Role Status Dates Dr. Jalyn Smith MD Primary Care Provider Active Dr. Gustavo Justice MD Admit Provider, At tending Provider, Referring Provider Active Dr. Neftaly Lam DO Other Provider Active Dr. Concepcion Peacock MD Other Provider Active Kaci Patino SOCIAL SCIENCE INSTRUCTOR-C Other Provider Active Melanie Ochoa NP, SOCIAL SCIENCE INSTRUCTOR-C Other Provider Active Printed Circuit Board Pcb Designer Relationship Specialty Start Date End Date Jalyn Smith MD [address] [place], [place] [id number] PCP - General Family Medicine 01/28/13 Brady Avila MD [address] [place], [place] [id number] Pulmonary and Critical Care Medicine 11/01/20 Selene Anaya RN [address] [place] [address] Damper Worker Internal Medicine 11/10/22 Printed Circuit Board Pcb Designer Relationship Specialty Start Date End Date Jalyn Smith MD [address] [place], [place] [address] PCP - General Family Medicine 01/28/13 Brady Avila MD [address] [facility] [place] [place] [address] Pulmonary and Critical Care Medicine 11/01/20 Selene Anaya RN [address] [place] [address] Damper Worker Internal Medicine 11/10/22 Printed Circuit Board Pcb Designer Relationship Specialty Start Date End Date Jalyn Smith MD [address] [facility] [place], [place] [address] PCP - General Family Medicine 01/28/13 Brady Avila MD [address] [facility], [place] [address] Pulmonary and Critical Care Medicine 11/01/20 Selene Anaya, SANDRA [address] [facility], [place] [address]408[address] Damper Worker Internal Medicine 11/10/22 Printed Circuit Board Pcb Designer Relationship Specialty Start Date End Date Jalyn Smith MD [address] [place] [address] PCP - General Family Medicine 01/28/13 Brady Avila MD [address] [facility] [place] [address] Pulmonary and Critical Care Medicine 11/01/20 Selene Anaya RN [address] [place], [place] 6668131 Damper Worker Internal Medicine 11/10/22 Printed Circuit Board Pcb Designer Relationship Specialty Start Date End Date Jalyn Smith MD [address] [facility] [place] [address] PCP - General Family Medicine 01/28/13 Brady Avila MD [address] [facility], [place] 848891 Pulmonary and Critical Care Medicine 11/01/20 Selene Anaya, SANDRA [address] [place], [place] 2895931 Damper Worker Internal Medicine 11/10/22 Printed Circuit Board Pcb Designer Relationship Specialty Start Date End Date Jalyn Smith MD [address] [facility] [place], [place] [address] PCP - General Family Medicine 01/28/13 Brady Avila MD [address] [facility], [place] [address] Pulmonary and Critical Care Medicine 11/01/20 Selene Anaya RN [address] [place] [id number] Damper Worker Internal Medicine 11/10/22 Printed Circuit Board Pcb Designer Relationship Specialty Start Date End Date Jalyn Smith MD [address] [facility] [place], [place] [id number] PCP - General Family Medicine 01/28/13 Brady Avila MD [address] [place] [address] Pulmonary and Critical Care Medicine 11/01/20 Selene Anaya RN [address] [place] [id number] Damper Worker Internal Medicine 11/10/22 Team Status: Active Member Role Status Dates Dr. Jalyn Smith MD Primary Care Provider Active Dr. Nehemiah Farooq MD Attending Provider Active Dr. Gustavo Justice MD Referring Provider Active Team Status: Inactive Member Role Status Dates Dr. Jalyn Smith MD Primary Care Provider Active Dr. Chin Paul MD Attending Provider, Referring Pr ovider Active Printed Circuit Board Pcb Designer Relationship Specialty Start Date End Date Jalyn Smith MD [address] [facility] [place], [place] [address] PCP - General Family Medicine 01/28/13 Brady Avila MD [address] [facility], [place] [address] Pulmonary and Critical Care Medicine 11/01/20 Selene Anaya RN [address] [place] [address] Damper Worker Internal Medicine 11/10/22 Printed Circuit Board Pcb Designer Relationship Specialty Start Date End Date Jalyn Smith MD [address] [facility] [place], [place] 132051 PCP - General Family Medicine 01/28/13 Brady Avila MD [address] [place], [place] [address] Pulmonary and Critical Care Medicine 11/01/20 Selene Anaya, SANDRA [address] [place], [place] 5038531 Damper Worker Internal Medicine 11/10/22 Printed Circuit Board Pcb Designer Relationship Specialty Start Date End Date Jalyn Smith MD [address] [place] [address] PCP - General Family Medicine 01/28/13 Brady Avila MD [address], [place] [address] Pulmonary and Critical Care Medicine 11/01/20October, Darlene Islas RN [address] [place] [address] Damper Worker Unspecified 02/19/22 11/09/22 Printed Circuit Board Pcb Designer Relationship Specialty Start Date End Date Jalyn Smith MD [address] [place] [address] PCP - General Family Medicine 01/28/13 Brady Avila MD [address] [place], [place] 647501 Pulmonary and Critical Care Medicine 11/01/20October, Darlene Islas RN [address] [place] [address] Damper Worker Unspecified 02/19/22 11/09/22 Printed Circuit Board Pcb Designer Relationship Specialty Start Date End Date Jalyn Smith MD [address] [place] [address] PCP - General Family Medicine 01/28/13 Brady Avila MD [address] [place], [place] 240051 Pulmonary and Critical Care Medicine 11/01/20 Selene Anaya, SANDRA [address] [place], [place] 7700431 Damper Worker Internal Medicine 11/10/22 Printed Circuit Board Pcb Designer Relationship Specialty Start Date End Date Jalyn Smith MD [address] [place] [address] PCP - General Family Medicine 01/28/13 Brady Avila MD [address] [place], [place] 475[address] Pulmonary and Critical Care Medicine 11/01/20 Selene Anaya RN [address] [place] [address] Damper Worker Internal Medicine 11/10/22 Printed Circuit Board Pcb Designer Relationship Specialty Start Date End Date Jalyn Smith MD [address] [facility] [place] [address] PCP - General Family Medicine 01/28/13 Brady Avila MD [address] [place] [address] Pulmonary and Critical Care Medicine 11/01/20 Selene Anaya RN [address] [place] [address] Damper Worker Internal Medicine 11/10/22 Printed Circuit Board Pcb Designer Relationship Specialty Start Date End Date Jalyn Smith MD [address] [facility] [place] [address] PCP - General Family Medicine 01/28/13 Brady Avila MD [address] [place] [address] Pulmonary and Critical Care Medicine 11/01/20 Selene Anaya, SANDRA [address] [place], [place] 5044731 Damper Worker Internal Medicine 11/10/22 Team Status: Inactive Member Role Status Dates Dr. Jalyn Smith MD Primary Care Provider Active Dr. Juni Ho DO Emergency Provider Active Printed Circuit Board Pcb Designer Relationship Specialty Start Date End Date Jalyn Smith MD [address] [facility] [place] [address] PCP - General Family Medicine 01/28/13 Brady Avila MD [address] [facility], [place] 586971 Pulmonary and Critical Care Medicine 11/01/20 Selene Anaya RN [address] [place] [address] Damper Worker Internal Medicine 11/10/22 Printed Circuit Board Pcb Designer Relationship Specialty Start Date End Date Jalyn Smith MD [address] [place] [address] PCP - General Family Medicine 01/28/13 Brady Avila MD [address] [facility] [place] [address] Pulmonary and Critical Care Medicine 11/01/20 Selene Anaya RN [address] [place] [address] Damper Worker Internal Medicine 11/10/22 Printed Circuit Board Pcb Designer Relationship Specialty Start Date End Date Jalyn Smith MD [address] [place] [address] PCP - General Family Medicine 01/28/13 Brady Avila MD [address] [facility] [place] [address] Pulmonary and Critical Care Medicine 11/01/20 Selene Anaya RN [address] [facility], [place] 2673731 Damper Worker Internal Medicine 11/10/22 Printed Circuit Board Pcb Designer Relationship Specialty Start Date End Date Jalyn Smith MD [address] [facility] [place] [address] PCP - General Family Medicine 01/28/13 Brady Avila MD [address] [facility] [place] [address] Pulmonary and Critical Care Medicine 11/01/20 Selene Anaya RN [address] [facility], [place] 7501931 Damper Worker Internal Medicine 11/10/22 Printed Circuit Board Pcb Designer Relationship Specialty Start Date End Date Jalyn Smith MD [address] [facility] [place] [address] PCP - General Family Medicine 01/28/13 Brady Avila MD [address] [facility] [place] [address] Pulmonary and Critical Care Medicine 11/01/20 Selene Anaya RN [address] [facility], [place] 0794231 Damper Worker Internal Medicine 11/10/22 Printed Circuit Board Pcb Designer Relationship Specialty Start Date End Date Jalyn Smith MD [address] [facility] [place] [address] PCP - General Family Medicine 01/28/13 Brady Avila MD [address] [place] [address] Pulmonary and Critical Care Medicine 11/01/20 Selene Anaya RN [address] [facility], [place] 3096131 Damper Worker Internal Medicine 11/10/22 Printed Circuit Board Pcb Designer Relationship Specialty Start Date End Date Jalyn Smith MD [address] [facility] [place] [address] PCP - General Family Medicine 01/28/13 Brady Avila MD [address] [place] [address] Pulmonary and Critical Care Medicine 11/01/20 Selene Anaya, SANDRA [address] [place], [place] 4232831 Damper Worker Internal Medicine 11/10/22 Printed Circuit Board Pcb Designer Relationship Specialty Start Date End Date Jalyn Smith MD [address] [facility] [place] [address] PCP - General Family Medicine 01/28/13 Brady Avila MD [address] [facility] [place] [address] Pulmonary and Critical Care Medicine 11/01/20 Selene Anaya, SANDRA [address] [place], [place] 9900731 Damper Worker Internal Medicine 11/10/22 Printed Circuit Board Pcb Designer Relationship Specialty Start Date End Date Jalyn Smith MD [address] [facility] [place] [address] PCP - General Family Medicine 01/28/13 Brady Avila MD [address] [facility] [address] Pulmonary and Critical Care Medicine 11/01/20 Selene Anaya, SANDRA [address] [place] [address] Damper Worker Internal Medicine 11/10/22 Printed Circuit Board Pcb Designer Relationship Specialty Start Date End Date Jalyn Smith MD [address] [facility] [place] [address] PCP - General Family Medicine 01/28/13 Brayd Avila MD [address] [place] [address] Pulmonary and Critical Care Medicine 11/01/20 Selene Anaya, SANDRA [address] [facility], [place] 6444831 Damper Worker Internal Medicine 11/10/22 Printed Circuit Board Pcb Designer Relationship Specialty Start Date End Date Jalyn Smith MD [address] [facility] [place] [address] PCP - General Family Medicine 01/28/13 Brady Avila MD [address] [place] [address] Pulmonary and Critical Care Medicine 11/01/20 Selene Anaya RN [address] [place] [address] Damper Worker Internal Medicine 11/10/22 Printed Circuit Board Pcb Designer Relationship Specialty Start Date End Date Jalyn Smith MD [address] [facility] [place] [address] PCP - General Family Medicine 01/28/13 Brady Avila MD [address] [place] [address] Pulmonary and Critical Care Medicine 11/01/20 Selene Anaya RN [address] [place] [address] Damper Worker Internal Medicine 11/10/22 Printed Circuit Board Pcb Designer Relationship Specialty Start Date End Date Jalyn Smith MD [address] [facility] [place] [address] PCP - General Family Medicine 01/28/13 Brady Avila MD [address] [place] [address] Pulmonary and Critical Care Medicine 11/01/20 Selene Anaya, SANDRA [address] [place] [address] Damper Worker Internal Medicine 11/10/22 Printed Circuit Board Pcb Designer Relationship Specialty Start Date End Date Jalyn Smith MD [address] [facility] [place] [address] PCP - General Family Medicine 01/28/13 Brady Avila MD [address] [facility] [place] [address] Pulmonary and Critical Care Medicine 11/01/20 Selene Anaya, SANDRA [address] [place] [address] Damper Worker Internal Medicine 11/10/22 Printed Circuit Board Pcb Designer Relationship Specialty Start Date End Date Jalyn Smith MD [address] [facility] [place] [address] PCP - General Family Medicine 01/28/13 Brady Avila MD [address] [facility], [place] [address] Pulmonary and Critical Care Medicine 11/01/20 Selene Anaya RN [address] [place] [address] Damper Worker Internal Medicine 11/10/22 05/14/24 Marjan Reid, TRANSIT COACH OPERATOR.KILN STOKER [address] [facility] [place] [address] Computer Security Manager Family Medicine 05/16/24 Casandra Kinsey, TRANSIT COACH OPERATOR.KILN STOKER [address] [facility] [place] [address] Computer Security Manager Family Medicine 05/16/24 Printed Circuit Board Pcb Designer Relationship Specialty Start Date End Date Jalyn Smith MD [address] [facility] [place] [address] PCP - General Family Medicine 01/28/13 Brady Avila MD [address] [place] [address] Pulmonary and Critical Care Medicine 11/01/20 Marjan Reid APRN.KILN STOKER [address] [place] [address] Computer Security Manager Family Medicine 05/16/24 Casandra Kinsey TRANSIT COACH OPERATOR.KILN STOKER [address] [place] [address] [facility] 05/16/24 Printed Circuit Board Pcb Designer Relationship Specialty Start Date End Date Jalyn Smith MD [address] [place] [address] PCP - General Family Medicine 01/28/13 Brady Avila MD [address] [place] [address] Pulmonary and Critical Care Medicine 11/01/20 Marjan Reid TRANSIT COACH OPERATOR.KILN STOKER [address] [place] [address] [facility] Medicine 05/16/24 Casandra Kinsey TRANSIT COACH OPERATOR.KILN STOKER [address] [place] [address] [facility] 05/16/24 Printed Circuit Board Pcb Designer Relationship Specialty Start Date End Date Jalyn Smith MD [address] [place] [address] PCP - General Family Medicine 01/28/13 Brady Avila MD [address] [place] [address] Pulmonary and Critical Care Medicine 11/01/20 Marjan Reid APRN.KILN STOKER [address] [place] [address] [facility] 05/16/24 Casandra Kinsey APRN.KILN STOKER [address] [facility] [place] [address] [facility] 05/16/24 Printed Circuit Board Pcb Designer Relationship Specialty Start Date End Date Jalyn Smith MD [address] [facility] [place] [address] PCP - General Family Medicine 01/28/13 Brady Avila MD [address] [place] [address] Pulmonary and Critical Care Medicine 11/01/20 Marjan Reid APRN.KILN STOKER [address] [place] [address] [facility] 05/16/24 Casandra Kinsey APRN.KILN STOKER [address] [facility] [place] [address] [facility] 05/16/24 Printed Circuit Board Pcb Designer Relationship Specialty Start Date End Date Jalyn Smith MD [address] [place] [address] PCP - General Family Medicine 01/28/13 Brady Avila MD [address] [place] [address] Pulmonary and Critical Care Medicine 11/01/20 Marjan Reid APRN.KILN STOKER [address] [facility] [place], [place] [address] [facility] 05/16/24 Casandra Kinsey TRANSIT COACH OPERATOR.KILN STOKER [address] [place] [address] [facility] 05/16/24 Team Status: Inactive Member Role Status [...] September 04, 2024 End: September 04, 2024 Printed Circuit Board Pcb Designer Relationship Specialty Start Date End Date Jalyn Smith MD [address] [facility] [place], [place] [address] PCP - General Family Medicine 01/28/13 Brady Avila MD [address] [place], [place] [address] Pulmonary and Critical Care Medicine 11/01/20 Marjan Reid, TRANSIT COACH OPERATOR.KILN STOKER [address] [facility] [place], [place] [address] [facility] 05/16/24 Casandra Kinsey TRANSIT COACH OPERATOR.KILN STOKER [address] [facility] [place], [place] [address] [facility] 05/16/24 Printed Circuit Board Pcb Designer Relationship Specialty Start Date End Date Jalyn Smith MD [address] [place] [address] PCP - General Family Medicine 01/28/13 Brady Avila MD [address] [place] [address] Pulmonary and Critical Care Medicine 11/01/20 Marjan Reid APRN.KILN STOKER [address] [place] [address] Computer Security Manager Family Medicine 05/16/24 Casandra Kinsey APRN.KILN STOKER [address] [place] [address] [facility] 05/16/24 Printed Circuit Board Pcb Designer Relationship Specialty Start Date End Date Jalyn Smith MD [address] [place] [address] PCP - General Family Medicine 01/28/13 Brady Avila MD [address] [place] [address] Pulmonary and Critical Care Medicine 11/01/20 Marjan Reid TRANSIT COACH OPERATOR.KILN STOKER [address] [place] [address] [facility] 05/16/24 Casandra Kinsey APRN.KILN STOKER [address] [place] [address] Computer Security [facility] 05/16/24 Printed Circuit Board Pcb Designer Relationship Specialty Start Date End Date Jalyn Smith MD [address] [place] [address] PCP - General Family Medicine 01/28/13 Brady Avila MD [address] [place] [address] Pulmonary and Critical Care Medicine 11/01/20 Marjan Reid, TRANSIT COACH OPERATOR.KILN STOKER [address] [place] [address] Computer Security Manager Family [facility] 05/16/24 Casandra Kinsey TRANSIT COACH OPERATOR.KILN STOKER [address] [place] [address] [facility] 05/16/24 Printed Circuit Board Pcb Designer Relationship Specialty Start Date End Date Jalyn Smith MD [address] [place] [address] PCP - General Family Medicine 01/28/13 Brady Avila MD [address] [place] [address] Pulmonary and Critical Care Medicine 11/01/20 Marjan Reid, TRANSIT COACH OPERATOR.KILN STOKER [address] [place] [address] [facility] 05/16/24 Casandra Kinsey TRANSIT COACH OPERATOR.KILN STOKER [address] [place] [address] [facility] 05/16/24 Printed Circuit Board Pcb Designer Relationship Specialty Start Date End Date Jalyn Smith MD [address] [place] [address] PCP - General Family Medicine 01/28/13 Brady Avila MD [address] [place] [address] Pulmonary and Critical Care Medicine 11/01/20 Marjan Reid APRN.KILN STOKER [address] [place] [address] [facility] 05/16/24 Casandra Kinsey APRN.KILN STOKER [address] [place] [address] [facility] 05/16/24 Printed Circuit Board Pcb Designer Relationship Specialty Start Date End Date Jalyn Smith MD [address] [place] [address] PCP - General Family Medicine 01/28/13 Brady Avila MD [address] [place] [address] Pulmonary and Critical Care Medicine 11/01/20 Marjan Reid APRN.KILN STOKER [address] [place] [address] [facility] 05/16/24 Casandra Kinsey APRN.KILN STOKER [address] [place] [address] [facility] 05/16/24 Printed Circuit Board Pcb Designer Relationship Specialty Start Date End Date Jalyn Smith MD [address] [place] [address] PCP - General Family Medicine 01/28/13 Brady Avila MD [address] [place] [address] Pulmonary and Critical Care Medicine 11/01/20 Marjan Reid APRN.KILN STOKER [address] [place] [address] [facility] 05/16/24 Casandra Kinsey APRN.KILN STOKER [address] [place] [address] [facility] 05/16/24 Printed Circuit Board Pcb Designer Relationship Specialty Start Date End Date Jalyn Smith MD [address] [place] [address] PCP - General Family Medicine 01/28/13 Brady Avila MD [address] [place] [address] Pulmonary and Critical Care Medicine 11/01/20 Marjan eRid TRANSIT COACH OPERATOR.KILN STOKER [address] [place] [address] [facility] 05/16/24 Casandra Kinsey APRN.KILN STOKER [address] [place] [address] [facility] 05/16/24 Printed Circuit Board Pcb Designer Relationship Specialty Start Date End Date Jalyn Smith MD [address] [place] [address] PCP - General Family Medicine 01/28/13 Brady Avila MD [address] [place] [address] Pulmonary and Critical Care Medicine 11/01/20 Marjan Reid APRN.KILN STOKER [address] [place] [address] [facility] 05/16/24 Casandra Kinsey APRN.KILN STOKER [address] [place] [address] [facility] 05/16/24 Printed Circuit Board Pcb Designer Relationship Specialty Start Date End Date Jalyn Smith MD [address] [place] [address] PCP - General Family Medicine 01/28/13 Brady Avila MD [address] [place] [address] Pulmonary and Critical Care Medicine 11/01/20 Marjan Reid APRN.KILN STOKER [address] [place] [address] [facility] 05/16/24 Casandra Kinsey APRN.KILN STOKER [address] [place] [address] [facility] 05/16/24 Printed Circuit Board Pcb Designer Relationship Specialty Start Date End Date Jalyn Smith MD [address] [place] [address] PCP - General Family Medicine 01/28/13 Brady Avila MD [address] [place] [address] Pulmonary and Critical Care Medicine 11/01/20 Marjan Reid APRN.KILN STOKER [address] [place] [address] [facility] 05/16/24 Casandra Kinsey APRN.KILN STOKER [address] [place] [address] [facility] 05/16/24 Goals (unrecognized section and content) Goals [...] BE BASED ON THE PRIMARY CLINICAL RECORDS. [facility]. provides no warranty or guarantee of the accuracy or completeness of information in this document.
--- NOTE | 2025-05-20 18:43 | ED.RN ---
1844 pt. cleaned with bath wipes and linen changed. Pants and shirt were cut off. Socks removed and hearing aids removed and placed in cup at bedside.
--- NOTE | 2025-05-20 19:15 | ED.RN ---
FAMILY AT BEDSIDE. PATIENT'S FAMILY PROVIDED WITH REFRESHMENTS. FAMILY INFORMED OF WAITING FOR [facility] TO CALL BACK.
--- NOTE | 2025-05-20 20:41 | ED.RN ---
[facility] was called at 1849 by Taina RN who left a message, no return call received. This RN called [facility] at 2034 and again left a message.
--- NOTE | 2025-05-20 20:43 | ED.RN ---
PATIENT'S FAMILY LEFT BEDSIDE AT THIS TIME. PATIENT'S FAMILY NOTIFIED THAT [facility] WOULD BE CALLING THE FAMILY AT SOME POINT TONIGHT.
--- NOTE | 2025-05-20 21:55 | ED.RN ---
Attempted to call [facility] again, messaged left. Will take patient to [facility] to wait further for [facility].
== END 2025-05-20 22:09 ==
PROVIDERS: Emergency Provider Emergency Medicine; PCP Family Medicine; Visit Provider Emergency Medicine
DX: I46.9 Cardiac arrest, cause unspecified (principal); J44.9 Chronic obstructive pulmonary disease, unspecified; E11.9 Type 2 diabetes mellitus without complications; I10 Essential (primary) hypertension; Z90.710 Acquired absence of both cervix and uterus; Z79.899 Other long term (current) drug therapy; Z99.81 Dependence on supplemental oxygen; G25.81 Restless legs syndrome; F32.A Depression, unspecified; Z79.51 Long term (current) use of inhaled steroids; Z90.49 Acquired absence of other specified parts of digestive tract
CPT/HCPCS: 92950; 99282; A4216